=== PATIENT | female | born 1965 | race Caucasian/White ===

== ENCOUNTER → 2019-04-28 14:29 | Outpatient (BNVA) | payer MEDICARE, MEDICAID, SELFPAY | PROVIDERS: Family Provider Internal Medicine; PCP Internal Medicine; Referring Provider Internal Medicine; Visit Provider Orthopaedic Surgery | DX: M25.551 Pain in right hip (principal); R10.2 Pelvic and perineal pain | CPT/HCPCS: 73501 ==

== ENCOUNTER 2019-05-13 13:05 | Outpatient (CLI) | payer MEDICARE, MEDICAID, SELFPAY ==
--- NOTE | 2019-05-13 13:00 | MR_ITS ---
WS: [id number] MRI LUMBAR SPINE NONCONTRAST TECHNIQUE: Sagittal T1, T2 and STIR imaging. Axial T1 and T2 imaging. CLINICAL INFORMATION: pain COMPARISON: MRI 2008 and myelogram FINDINGS: Mild lumbar curve. No acute compression. No high-grade central canal stenosis. Small disc protrusions in the lower thoracic spine at T11-T12 and T12-L1 without significant central canal stenosis. L1-L2: Normal. L2-L3: Mild annular bulging. Small left foraminal protrusion with mild left foraminal narrowing. Righ t foramen is patent. Mild facet arthropathy. L3-L4: Mild annular bulging with slight effacement of ventral thecal sac. Left foraminal protrusion c ontacts the exiting left L3 nerve root with moderate left foraminal narrowing. Right foramen is paten t. Mild to moderate facet arthropathy. L4-L5: Prominent central and right pericentral disc protrusion with moderate central canal stenosis. Impingement traversing right L5 nerve root. Mild to moderate right greater than left foraminal narrow ing. Moderate facet arthropathy with facet edema. L5-S1: L5 is partially sacralized. No significant disc bulging. Spinal canal and foramen are patent. Mild facet arthropathy. Small amount of edema in the bilateral L4-5 facets and pedicles consistent with stress reaction or de generative change. Prior postoperative changes anterior cervical fusion C5-C7. MR/MR lumbar spine wo con* [id number] IMPRESSION: 1. Prominent central right pericentral disc protrusion L4-5 impinges the right subarticular recess and traversing right L5 nerve root. Moderate central canal stenosis with mild to moderate right greater than left foraminal narrowing. 2. Small left foraminal protrusion L3-4 with moderate left foraminal narrowing and encroachment on the exiting left L3 nerve root. 3. Small left foraminal protrusion L2-3 with mild left foraminal narrowing.
== END 2019-05-13 13:06 | disposition home or self-care (01) ==
LOC: RADSHAW 13:10
PROVIDERS: Family Provider Internal Medicine; PCP Internal Medicine; Visit Provider Orthopaedic Surgery
DX: M51.26 Other intervertebral disc displacement, lumbar region (principal)
CPT/HCPCS: 72148

== ENCOUNTER 2019-07-09 10:34 | Emergency (ER) | payer MEDICARE, MEDICAID, SELFPAY ==
[2019-07-09] VITALS (8 sets, daily range): BP systolic 119–134; BP diastolic 70–93; PULSE 71–82; RESP 16–18; TEMP 36.7; O2SAT 97–100; BMI 35.3
--- NOTE | 2019-07-09 10:46 | W.ED.CHESTPA ---
HPI - Chest Pain General: Chief Complaint: Chest Pain Stated Complaint: chest pain Time Seen by Provider: 07/09/19 10:41 History of Present Illness: HPI narrative: 54-year-old female present complaining of a positional chest pain is worse when she moves worse when she takes a deep breath and worse with palpation. She has been coughing quite a bit she was recently diagnosed with pneumonia and influenza per her report. She has a history of COPD and CHF. She states she is not really had much more than a low-grade fever she not had any vomiting or diarrhea chest pain is been very severe for the last 3 days. She is not had any hematochezia melena hematemesis or coffee-ground emesis. She tested positive for influenza A couple weeks ago when this first started when she was in [place]. Associated symptoms: Deny abdominal pain, dyspnea, fever(s), nausea or vomiting Review of Systems Const: Denies: fever, chills, body aches, change in appetite, fatigue or malaise ENMT: Denies: throat pain, ear pain, nasal discharge or nasal congestion Card: Denies: chest pain, edema, shortness of breath on exertion or shortness of breath when lying down Resp: Denies: shortness of breath, productive cough or non-productive cough GI: Denies: abdominal pain, nausea, vomiting, vomiting blood, coffee grounds in vomit, diarrhea, constipation, bloating, blood in stool or black tarry stool : Denies: flank pain, difficulty urinating, painful urination, urinary frequency or urinary urgency Skin/Breast: Denies: rash or itching [facility] ED PFSH: Medical History (Updated 07/09/19 @ 14:39 by Gee Huertas DO) Bilateral primary osteoarthritis of hip Surgical History H/O cervical spine surgery Social History Smoking and tobacco status: current every day smoker cigarettes Packs smoked per day: 0.5 Alcohol intake: never Physical Exam Const: COMMON NORMALS: no apparent distress GENERAL APPEARANCE: cooperative and comfortable ORIENTATION/CONSCIOUSNESS: Yes awake, Yes oriented to person, Yes oriented to place and Yes oriented to time HENMT: COMMON NORMALS: normocephalic, head/scalp atraumatic, hearing grossly normal bilaterally, external ears normal, EAC's normal, TM's normal bilaterally, nasal mucous membranes and turbinates normal, moist oral mucous membranes and oropharynx normal HEAD & SCALP: normocephalic and atraumatic NOSE: nasal mucous membranes and turbinates normal EXTERNAL EAR: Yes external ears normal EXTERNAL AUDITORY CANAL: EAC's normal TYMPANIC MEMBRANE: TM's normal bilaterally Eye: COMMON NORMALS: PERRL, EOMs intact bilaterally, conjunctivae normal and no scleral icterus CONJUNCTIVA: Yes conjunctivae normal PUPIL: Yes PERRL Neck/C-Spine: COMMON NORMALS: full ROM, no lymphadenopathy, supple and no JVD Lymph: LYMPHATIC: no lymphadenopathy noted and no lymphedema noted Chest: OTHER: Pain reproducible with palpation across anterior chest wall and with movement and deep inspiration Resp: COMMON NORMALS: normal respiratory effort, no retractions, no use of accessory muscles and clear to auscultation bilaterally AUSCULTATION: clear to auscultation bilaterally Cardio: COMMON NORMALS: no JVD, regular rate, regular rhythm and no murmurs RATE: regular rate RHYTHM: regular rhythm GI: COMMON NORMALS: soft to palpation and no hepatosplenomegaly AUSCULTATION: Yes normoactive bowel sounds PALPATION: Yes soft, No tender, No guarding and Yes no hepatosplenomegaly Extremity: COMMON NORMALS: normal to inspection, normal capillary refill, no clubbing, cyanosis or edema, no calf tenderness and no pedal edema Neuro: SENSORIUM/ORIENTATION: Yes oriented to person, Yes oriented to place and Yes oriented to time Skin: COMMON NORMALS: no rashes or lesions noted GENERAL SKIN EXAM: no rashes or lesions noted Course Vital Signs: Vital signs: Vital Signs Temperature 98.1 F 07/09/19 10:29 Pulse Rate 71 07/09/19 15:28 Respiratory Rate 17 07/09/19 15:28 Blood Pressure 127/70 07/09/19 15:28 Pulse Oximetry 97 07/09/19 15:28 MDM - Chest Pain MDM Narrative: Medical decision making narrative: Troponins are negative x2 EKG is unremarkable pain continues to be reproducible with palpation movement and deep inspiration reviewed findings with the patient Lab Data: Labs: Lab Results 07/09/19 07/09/19 07/09/19 Range/Units 11:27 11:27 11:27 WBC 5.4 (4.0-10.0) 10^3/ uL RBC 3.81 L (4.1-5.3) 10^6/u L Hgb 10.4 L (11.5-15.3) g/dL Hct 33.1 L (37.0-47.0) % MCV 86.9 (81-99) fL MCH 27.3 L (28.0-34.0) pg MCHC 31.4 (30.0-36.0) g/dL RDW 13.8 (12.1-15.1) % Plt Count 101 L (130-400) 10^3/c mm MPV 9.6 (7.4-10.4) fL Neut % (Auto) 73.3 % Lymph % (Auto) 18.2 % [place] % (Auto) 5.1 % Eos % (Auto) 2.6 % Baso % (Auto) 0.4 % Neut # (Auto) 4.0 (1.8-7.7) 10^3/u L Lymph # (Auto) 1.0 (0.8-4.8) 10^3/u L [place] # (Auto) 0.3 (0.2-0.9) 10^3/u L Eos # (Auto) 0.1 (0.0-0.8) 10^3/u L Baso # (Auto) 0.0 (0.0-0.1) 10^3/u L Nucleated RBC % (a uto) 0 % Nucleated RBCs # 0.0 /100WBC Sodium 141 (136-145) mmol/L Potassium 3.7 (3.5-5.1) mmol/L Chloride 109 H (98-107) mmol/L Carbon Dioxide 22 (22-29) mmol/L Anion Gap 13.7 (5-19) BUN 10 (6-20) mg/dL Creatinine 0.4 L (0.5-0.9) mg/dL GFR Calculation 167.6 H (90-130) mL/min Glucose 237 H (65-115) mg/dL Calculated Osmolal ity 296 H (285-295) mOsm/k g Calcium 9.2 (8.5-10.5) mg/dL Total Bilirubin 0.5 (0.15-1.2) mg/dL AST 26 (0-32) U/L ALT 22 (0-33) U/L Alkaline Phosphata se 164 H (35-105) IU/L Troponin T Baselin e 6 (0-10) ng/mL Troponin T 120 Min [place] (0-10) ng/mL Delta Troponin T (0-10) ABS# Total Protein 5.7 L (6.6-8.7) g/dL Albumin 3.3 L (3.5-5.2) g/dL Globulin 2.4 (1.3-4.6) g/dL Urine Color (Yellow) Urine Appearance (CLEAR) Urine pH (5-7) Ur Specific Gravit y (1.005-1.030) Urine Protein (Negative) Urine Glucose (UA) (Normal) Urine Ketones (Negative) Urine Blood (Negative) Urine Nitrate (Negative) Urine Bilirubin (NEGATIVE) Urine Urobilinogen (Negative) mg/dL Ur Leukocyte Colleen ase (Negative) 07/09/19 07/09/19 Range/Units 11:50 13:27 WBC (4.0-10.0) 10^3/ uL RBC (4.1-5.3) 10^6/u L Hgb (11.5-15.3) g/dL Hct (37.0-47.0) % MCV (81-99) fL MCH (28.0-34.0) pg MCHC (30.0-36.0) g/dL RDW (12.1-15.1) % Plt Count (130-400) 10^3/c mm MPV (7.4-10.4) fL Neut % (Auto) % Lymph % (Auto) % [place] % (Auto) % Eos % (Auto) % Baso % (Auto) % Neut # (Auto) (1.8-7.7) 10^3/u L Lymph # (Auto) (0.8-4.8) 10^3/u L [place] # (Auto) (0.2-0.9) 10^3/u L Eos # (Auto) (0.0-0.8) 10^3/u L Baso # (Auto) (0.0-0.1) 10^3/u L Nucleated RBC % (a uto) % Nucleated RBCs # /100WBC Sodium (136-145) mmol/L Potassium (3.5-5.1) mmol/L Chloride (98-107) mmol/L Carbon Dioxide (22-29) mmol/L Anion Gap (5-19) BUN (6-20) mg/dL Creatinine (0.5-0.9) mg/dL GFR Calculation (90-130) mL/min Glucose (65-115) mg/dL Calculated Osmolal ity (285-295) mOsm/k g Calcium (8.5-10.5) mg/dL Total Bilirubin (0.15-1.2) mg/dL AST (0-32) U/L ALT (0-33) U/L Alkaline Phosphata se (35-105) IU/L Troponin T Baselin e (0-10) ng/mL Troponin T 120 Min [place] 6.00 (0-10) ng/mL Delta Troponin T 0 (0-10) ABS# Total Protein (6.6-8.7) g/dL Albumin (3.5-5.2) g/dL Globulin (1.3-4.6) g/dL Urine Color Yellow (Yellow) Urine Appearance Clear (CLEAR) Urine pH 5 (5-7) Ur Specific Gravit y 1.025 (1.005-1.030) Urine Protein Neg (Negative) Urine Glucose (UA) 2+ (Normal) Urine Ketones Negative (Negative) Urine Blood Neg (Negative) Urine Nitrate Negative (Negative) Urine Bilirubin Neg (NEGATIVE) Urine Urobilinogen Norm (Negative) mg/dL Ur Leukocyte Colleen ase Negative (Negative) Discharge Plan Discharge Patient Disposition: Home, Self-Care Clinical Impression: Anterior chest wall pain Condition: Stable Prescriptions: New hydrocodone-acetaminophen 5-325 mg tablet 1 tab PO Q6H PRN (Reason: pain) Qty: 10 RF: 0 No Action zonisamide 100 mg capsule 100 mg PO TID RF: 0 escitalopram oxalate [Lexapro] 20 mg tablet 20 mg PO DAILY RF: 0 nitroglycerin [Nitrostat] 0.4 mg tablet, sublingual 0.4 mg SUBLINGUAL PRN PRN (Reason: Chest Pain) RF: 0 quetiapine 50 mg tablet 50 mg PO BEDTIME RF: 0 clonidine HCl 0.1 mg Tablet 0.1 mg PO BEDTIME RF: 0 ropinirole 2 mg tablet 2 mg PO BEDTIME RF: 0 ProAir HFA 90 mcg/actuation Hfa Aerosol Inhaler 2 puff INHALATION Q4H PRN (Reason: Shortness Of Breath) RF: 0 Humalog KwikPen Insulin 100 unit/mL Insulin Pen See Rx Instructions .ROUTE .COMPLEX RF: 0 Pristiq 100 mg Tablet Extended Release 24 Hr 100 mg PO DAILY RF: 0 Tresiba FlexTouch U-200 200 unit/mL (3 mL) Insulin Pen 60 unit SUBCUT BEDTIME RF: 0 Ativan 0.5 mg Tablet 0.5 mg PO TID PRN (Reason: Anxiety) RF: 0 Discharge Orders: Discharge Order (Routine); Ordered 07/09/19 Ordered By: Gee Huertas Referrals: Eber Garsia DO [Primary Care Provider] - Discharge Diet: Clear Liquid Discharge Activity: Increase activity as tolerated Discharge Date/Time: 07/09/19 15:29 Coding Level of Care Code ED Data Keyer for Rober Arellano
--- NOTE | 2019-07-09 10:58 | XR_ITS ---
WS: [id number] PORTABLE CHEST HISTORY: dyspnea/cough COMPARISON: 01/09/2019 Lungs are clear and well expanded. No pleural effusion or pneumothorax. Cardiac size: Normal. Mediastinum/Aorta: Normal mediastinum. Prior surgical repair cervical region. XR/XR chest 1V portable [id number] IMPRESSION: Unremarkable portable chest.
--- NOTE | 2019-07-09 10:59 | ECG_ITS ---
Measurements Intervals [place] Rate: 82 P: 59 ME: 155 QRS: 34 QRSD: 79 T: 30 QT: 374 QTc: 437 SINUS RHYTHM POSSIBLE LEFT ATRIAL ENLARGEMENT [-0.1mV P WAVE IN V1/V2] Compared to ECG 01/02/2019 17:16:01 No significant changes Electronically Signed On 07-09-2019 14:03:56 CDT by Donna Davis M.D. [id number] f
[2019-07-09] MEDS: sodium chloride 0.9% 1,000 ML 999 ML IV (11:25)
[2019-07-09 11:41] LABS: Basophils % 0.4 %; Eosinophils # 0.1 10^3/uL (0.0-0.8); Eosinophils % 2.6 %; Hematocrit 33.1 % (37.0-47.0); Hemoglobin 10.4 g/dL (11.5-15.3); Lymphocytes % 18.2 %; Mean Corpuscular HGB Conc 31.4 g/dL (30.0-36.0); Mean Corpuscular Hemoglobin 27.3 pg (28.0-34.0); Mean Corpuscular Volume 86.9 fL (81-99); Mean Platelet Volume 9.6 fL (7.4-10.4); Monocytes # 0.3 10^3/uL (0.2-0.9); Monocytes % 5.1 %; Neutrophils % 73.3 %; Nucleated Red Blood Cells % 0 %; Platelet Count 101 10^3/cmm (130-400); Red Blood Count 3.81 10^6/uL (4.1-5.3); Red Cell Distribution Width 13.8 % (12.1-15.1); White Blood Count 5.4 10^3/uL (4.0-10.0)
[2019-07-09 11:59] LABS: Alanine Aminotransferase 22 U/L (0-33); Albumin Level 3.3 g/dL (3.5-5.2); Alkaline Phosphatase 164 IU/L (35-105); Anion Gap 13.7 (5-19); Aspartate Amino Transferase 26 U/L (0-32); Blood Urea Nitrogen 10 mg/dL (6-20); Calcium 9.2 mg/dL (8.5-10.5); Carbon Dioxide 22 mmol/L (22-29); Chloride 109 mmol/L (98-107); Globulin 2.4 g/dL (1.3-4.6); Glomerular Filtration Rate 167.6 mL/min (90-130); Glucose 237 mg/dL (65-115); Osmolality Calculated 296 mOsm/kg (285-295); Potassium 3.7 mmol/L (3.5-5.1); Sodium 141 mmol/L (136-145); Total Bilirubin 0.5 mg/dL (0.15-1.2); Total Protein 5.7 g/dL (6.6-8.7)
[2019-07-09 12:00] LABS: Troponin(5th) Baseline 6 ng/mL (0-10)
[2019-07-09 12:10] LABS: Add Urine Microscopic? NO
[2019-07-09] MEDS: morphine 4 mg/mL SDV 1 mL IVP ×2 (12:19→14:11)
[2019-07-09 12:57] LABS: Bilirubin Urine Neg (NEGATIVE); Blood Urine Neg (Negative); Glucose Urine UA 2+ (Normal); Ketones Urine Negative (Negative); Leukocyte Esterase Urine Negative (Negative); Nitrate Urine Negative (Negative); Protein Urine Neg (Negative); Specific Gravity, Urine 1.025 (1.005-1.030); Urine Appearance Clear (CLEAR); Urine Color Yellow (Yellow); Urobilinogen Urine Norm (Negative); pH Urine 5 (5-7)
--- NOTE | 2019-07-09 12:59 | ECG_ITS ---
Measurements Intervals [place] Rate: 79 P: 51 [place]: 159 QRS: 59 QRSD: 81 T: 49 QT: 385 QTc: 443 SINUS RHYTHM SEPTAL MYOCARDIAL INFARCTION [40+ ms Q WAVE IN V1/V2], OF INDETERMINATE AGE Compared to ECG 07/09/2019 10:38:19 Myocardial infarct finding now present Electronically Signed On 07-09-2019 22:06:47 CDT by Donna Davis M.D. [id number] f
[2019-07-09 14:08] LABS: Troponin 5 2HR Delta 0 ABS# (0-10)
== END 2019-07-09 15:29 | disposition home or self-care (01) ==
PROVIDERS: Emergency Provider Family Medicine; Family Provider Internal Medicine; PCP Internal Medicine
DX: R07.89 Other chest pain (principal); F17.210 Nicotine dependence, cigarettes, uncomplicated
CPT/HCPCS: 12345; 36415; 71045; 80053; 81003; 84484; 85025; 93005; 96360; 96361; 96365; 96366; 96374; 96375; 96376; 99284; J2270; J7030

== ENCOUNTER → 2019-08-06 12:54 | Outpatient (BNVA) | payer MEDICARE, MEDICAID, SELFPAY | PROVIDERS: Family Provider Internal Medicine; PCP Internal Medicine; Visit Provider Specialist | DX: F45.0 Somatization disorder (principal); F60.3 Borderline personality disorder; M54.5 Low back pain; F17.210 Nicotine dependence, cigarettes, uncomplicated | CPT/HCPCS: 99215 ==

== ENCOUNTER 2019-08-18 09:21 | Emergency (ER) | payer MEDICARE, MEDICAID, SELFPAY ==
[2019-08-18 09:25] VITALS: BP 124/74; PULSE 106; RESP 16; TEMP 37.5; O2SAT 98; BMI 36.3
--- NOTE | 2019-08-18 09:42 | CT_ITS ---
WS: [id number] CT ABDOMEN AND PELVIS WITH CONTRAST HISTORY: Abdominal pain. Prior hysterectomy, appendectomy and cholecystectomy. TECHNIQUE: Imaging performed of the abdomen and pelvis with IV contrast. Single phase imaging of the abdomen. Coronal and sagittal reformats are submitted. All CT scans at [facility] use at least one of these dose optimization techniques: automated exposure control; mA and/or kV adjustment per patient size (includes targeted exams where dose is matched to clinical indication); or iterativ e reconstruction. IV CONTRAST: Omnipaque 300; 95 mL IV. Oral contrast: No DLP: 1374.54 mGy.cm COMPARISON: 01/09/2019 Lower thorax: Mild thickening of the distal airways but improved since 01/09/2019. Micronodule at the LEFT base measures 2 mm. No interval change. Heart is normal size. Small hiatal hernia. Liver/biliary system: Mild hepatic steatosis. 1.2 cm hepatic cyst in the RIGHT lobe. No increase in s ize. No bile duct dilatation. Gallbladder: Prior cholecystectomy. Pancreas: Normal. Spleen: Spleen is slightly enlarged at 14.6 cm in length. Spleen has slightly decreased in size since 01/09/2019 (16.1 cm). Adrenal glands: Normal. Right kidney: Normal. Left kidney: Normal. Aorta: Mild atherosclerosis. No aneurysm. Large varices are present in the LEFT abdomen closely associated with the LEFT psoas muscle. These di lated varices continued to progress since 01/09/2019. Large veins enter into the splenic vein. These h ave been previously described and probably related to portal hypertension. Lymphadenopathy: None. Free fluid: None. GI tract: Slight increased amount of fluid in the RIGHT colon. There is no obstructive pattern. No si gnificant diverticular disease. No wall thickening or mucosal abnormalities. Abdominal wall: Unremarkable abdominal wall. No hernia. Pelvis: Prior hysterectomy. Urinary bladder is negative. No adenopathy or fluid. Bones: Unremarkable. CT/CT abdomen pelvis w con* [id number] IMPRESSION: 1. No acute abdominal process identified. 2. Prior appendectomy, cholecystectomy and hysterectomy. 3. No large varices in the LEFT retroperitoneum emptying into the splenic vein . Probably related to portal hypertension. 4. Mild splenomegaly.
[2019-08-18 10:01] LABS: Basophils % 0.2 %; Eosinophils # 0.2 10^3/uL (0.0-0.8); Eosinophils % 2.4 %; Hematocrit 34.6 % (37.0-47.0); Hemoglobin 11.3 g/dL (11.5-15.3); Lymphocytes # 1.6 10^3/uL (0.8-4.8); Lymphocytes % 16.6 %; Mean Corpuscular HGB Conc 32.7 g/dL (30.0-36.0); Mean Corpuscular Hemoglobin 26.3 pg (28.0-34.0); Mean Corpuscular Volume 80.5 fL (81-99); Mean Platelet Volume 9.9 fL (7.4-10.4); Monocytes # 0.5 10^3/uL (0.2-0.9); Neutrophils % 75.5 %; Nucleated Red Blood Cells % 0 %; Platelet Count 144 10^3/cmm (130-400); Red Cell Distribution Width 13.8 % (12.1-15.1); White Blood Count 9.3 10^3/uL (4.0-10.0)
[2019-08-18 10:06] LABS: INR 1.12 (0.8-1.2)
[2019-08-18 10:10] LABS: Alanine Aminotransferase 22 U/L (0-33); Albumin Level 3.7 g/dL (3.5-5.2); Alkaline Phosphatase 168 IU/L (35-105); Anion Gap 17.7 (5-19); Aspartate Amino Transferase 34 U/L (0-32); Blood Urea Nitrogen 11 mg/dL (6-20); Calcium 8.6 mg/dL (8.5-10.5); Carbon Dioxide 22 mmol/L (22-29); Chloride 102 mmol/L (98-107); Globulin 3.1 g/dL (1.3-4.6); Glomerular Filtration Rate 129.6 mL/min (90-130); Glucose 135 mg/dL (65-115); Osmolality Calculated 284 mOsm/kg (285-295); Potassium 3.7 mmol/L (3.5-5.1); Sodium 138 mmol/L (136-145); Total Protein 6.8 g/dL (6.6-8.7)
[2019-08-18] MEDS: iohexol 300 mg/mL 100 mL Btl IV (10:22)
--- NOTE | 2019-08-18 10:22 | PC.NURSE ---
Bedside commode taken to room. Patient unable to provide stool sample at this time. She will activate call-light when able.
--- NOTE | 2019-08-18 11:19 | W.ED.NAVMDI ---
HPI - Nausea/Vomiting/Diarrhea General: Chief complaint: Nausea/Vomiting/Diarrhea Stated complaint: abd pain Time Seen by Provider: 08/18/19 09:29 History of Present Illness: HPI Narrative: 54-year-old female vomited twice this morning had some hematemesis she states about 2 cups total began last night she has a little abdominal pain poor she reports having a temp up to 101 at home. She also had diarrhea with blood in it. She had a CT of the abdomen scheduled last week which she is not able to do because he could not get a IV access. There is also some question of some kidney problems she has had a mild cough but is been nonproductive is been longstanding she has a history of nonalcoholic steatohepatitis. She has not had any previous documented esophageal varices that she is aware of. She tells me she gets yearly EGDs and colonoscopies because of a family history of colon cancer, but she thinks her last endoscopy was almost 2 years ago was done by Dr. perez [facility]. MD elicited complaint: vomiting and other (Elevated blood pressure not feeling well nothing specific) Onset (ago): day(s) Associated nausea: Yes Associated symtoms: Reports nausea; Denies bloating, chest pain, dysuria, fatigue or malaise Review of Systems Const: Denies: fever, chills, body aches, change in appetite, fatigue or malaise ENMT: Denies: throat pain, ear pain, nasal discharge or nasal congestion Card: Denies: chest pain, edema, shortness of breath on exertion or shortness of breath when lying down Resp: Denies: shortness of breath, productive cough or non-productive cough GI: Reports: nausea, vomiting, vomiting blood and blood in stool; Denies: abdominal pain, coffee grounds in vomit, diarrhea, constipation, bloating or black tarry stool : Denies: flank pain, difficulty urinating, painful urination, urinary frequency or urinary urgency Skin/Breast: Denies: rash or itching PFSH ED PFSH: Medical History (Updated 08/18/19 @ 16:30 by Gee Huertas DO) Bilateral primary osteoarthritis of hip Chronic back pain Congestive heart failure Diabetes mellitus MONTANO (nonalcoholic steatohepatitis) Surgical History (Updated 08/18/19 @ 11:59 by Gee Huertas DO) H/O cervical spine surgery H/O colonoscopy History of esophagogastroduodenoscopy Social History Smoking and tobacco status: current every day smoker cigarettes Packs smoked per day: 0.5 Alcohol intake: never Physical Exam Const: COMMON NORMALS: no apparent distress GENERAL APPEARANCE: cooperative and comfortable ORIENTATION/CONSCIOUSNESS: Yes awake, Yes oriented to person, Yes oriented to place and Yes oriented to time HENMT: COMMON NORMALS: normocephalic, head/scalp atraumatic, hearing grossly normal bilaterally, external ears normal, EAC's normal, TM's normal bilaterally, nasal mucous membranes and turbinates normal, moist oral mucous membranes and oropharynx normal HEAD & SCALP: normocephalic and atraumatic NOSE: nasal mucous membranes and turbinates normal EXTERNAL EAR: Yes external ears normal EXTERNAL AUDITORY CANAL: EAC's normal TYMPANIC MEMBRANE: TM's normal bilaterally Eye: COMMON NORMALS: PERRL, EOMs intact bilaterally, conjunctivae normal and no scleral icterus CONJUNCTIVA: Yes conjunctivae normal PUPIL: Yes PERRL Neck/C-Spine: COMMON NORMALS: full ROM, no lymphadenopathy, supple and no JVD Lymph: LYMPHATIC: no lymphadenopathy noted and no lymphedema noted Resp: COMMON NORMALS: normal respiratory effort, no retractions, no use of accessory muscles and clear to auscultation bilaterally AUSCULTATION: clear to auscultation bilaterally Cardio: COMMON NORMALS: no JVD, regular rate, regular rhythm and no murmurs RATE: regular rate RHYTHM: regular rhythm GI: COMMON NORMALS: soft to palpation and no hepatosplenomegaly AUSCULTATION: Yes normoactive bowel sounds PALPATION: Yes soft, No tender, No guarding and Yes no hepatosplenomegaly Extremity: COMMON NORMALS: normal to inspection, normal capillary refill, no clubbing, cyanosis or edema, no calf tenderness and no pedal edema Neuro: SENSORIUM/ORIENTATION: Yes oriented to person, Yes oriented to place and Yes oriented to time Skin: COMMON NORMALS: no rashes or lesions noted GENERAL SKIN EXAM: no rashes or lesions noted Course Vital Signs: Vital signs: Vital Signs Temperature 99.5 F 08/18/19 09:25 Pulse Rate 106 H 08/18/19 09:25 Respiratory Rate 16 08/18/19 13:19 Blood Pressure 124/74 08/18/19 09:25 Pulse Oximetry 98 08/18/19 09:25 MDM - Nausea/Vomiting/Diarrhea MDM Narrative: Medical decision making narrative: Initially patient told me she was getting yearly EGDs and had never been told she had esophageal varices a little concerned about the CT findings we called both to [facility] where she states she had been getting EGDs before as well as calling her primary care doctor's office no one could demonstrate documentation of previous EGDs. Due to this we will go ahead and transfer to [facility] so she can get an EGD. We will not able to do it here because if she does have bleeding esophageal varices that is a source of these bleeding we do not have anyone that could band the varices at the time of EGD. Lab Data: Labs: Lab Results 08/18/19 08/18/19 08/18/19 Range/Units 09:48 09:48 09:48 WBC 9.3 (4.0-10.0) 10^3/ uL RBC 4.30 (4.1-5.3) 10^6/u L Hgb 11.3 L (11.5-15.3) g/dL Hct 34.6 L (37.0-47.0) % MCV 80.5 L (81-99) fL MCH 26.3 L (28.0-34.0) pg MCHC 32.7 (30.0-36.0) g/dL RDW 13.8 (12.1-15.1) % Plt Count 144 (130-400) 10^3/c mm MPV 9.9 (7.4-10.4) fL Neut % (Auto) 75.5 % Lymph % (Auto) 16.6 % [place] % (Auto) 5.0 % Eos % (Auto) 2.4 % Baso % (Auto) 0.2 % Neut # (Auto) 7.0 (1.8-7.7) 10^3/u L Lymph # (Auto) 1.6 (0.8-4.8) 10^3/u L [place] # (Auto) 0.5 (0.2-0.9) 10^3/u L Eos # (Auto) 0.2 (0.0-0.8) 10^3/u L Baso # (Auto) 0.0 (0.0-0.1) 10^3/u L Nucleated RBC % (a uto) 0 % Nucleated RBCs # 0.0 /100WBC PT 14.80 H (10.5-13.3) SECO NDS INR 1.12 (0.8-1.2) APTT 31.0 (23.9-36.7) SECO NDS Sodium 138 (136-145) mmol/L Potassium 3.7 (3.5-5.1) mmol/L Chloride 102 (98-107) mmol/L Carbon Dioxide 22 (22-29) mmol/L Anion Gap 17.7 (5-19) BUN 11 (6-20) mg/dL Creatinine 0.5 (0.5-0.9) mg/dL GFR Calculation 129.6 (90-130) mL/min Glucose 135 H (65-115) mg/dL Calculated Osmolal ity 284 L (285-295) mOsm/k g Calcium 8.6 (8.5-10.5) mg/dL Total Bilirubin 1.0 (0.15-1.2) mg/dL AST 34 H (0-32) U/L ALT 22 (0-33) U/L Alkaline Phosphata se 168 H (35-105) IU/L Total Protein 6.8 (6.6-8.7) g/dL Albumin 3.7 (3.5-5.2) g/dL Globulin 3.1 (1.3-4.6) g/dL Discharge Plan Discharge Patient Disposition: Xfer Other Clinical Impression: Acute upper GI bleed, MONTANO (nonalcoholic steatohepatitis) Condition: Stable Referrals: Eber Garsia DO [Primary Care Provider] - Coding Level of Care Code ED [place] Caller for Chg Fwd Exam Comprehensive
[2019-08-18] MEDS: ondansetron 2 mg/ML SDV 2 mL 4 MG IVP (11:37)
[2019-08-18] MEDS: sodium chloride 0.9% 500 ML 999 ML IV (11:48)
[2019-08-18 13:19] VITALS: RESP 16
[2019-08-18] MEDS: morphine 4 mg/mL SDV 1 mL 2 MG IVP (13:19)
[2019-08-18] MEDS: octreotide 500 MCG in sodium chloride 0.9% (100 ml) 100 ML 10.1 MCG IV (13:19)
[2019-08-18] MEDS: metoclopramide 5 mg/mL SDV 2 mL 10 MG IVP (14:36)
[2019-08-18 16:54] VITALS: BP 145/75; PULSE 78; RESP 16; O2SAT 97
== END 2019-08-18 16:55 | disposition other institution (70) ==
PROVIDERS: Emergency Provider Family Medicine; PCP Internal Medicine
DX: K92.2 Gastrointestinal hemorrhage, unspecified (principal); K75.81 Nonalcoholic steatohepatitis (NASH); I50.9 Heart failure, unspecified; E11.9 Type 2 diabetes mellitus without complications; F17.210 Nicotine dependence, cigarettes, uncomplicated
CPT/HCPCS: 12345; 74177; 80053; 85025; 85610; 85730; 96365; 96366; 96375; 99282; 99285; J2270; J2354; J2405; J2765; J7040; Q9967

== ENCOUNTER 2019-09-16 19:47 | Emergency (ER) | payer MEDICARE, MEDICAID, SELFPAY ==
[2019-09-16 19:50] VITALS: BP 138/76; PULSE 115; RESP 18; TEMP 37.8; O2SAT 96; BMI 36.3
--- NOTE | 2019-09-16 20:00 | ED_ITS ---
HPI - Nausea/Vomiting/Diarrhea General: Chief complaint: Nausea/Vomiting/Diarrhea Stated complaint: N/V X1 WEEK Time Seen by Provider: 09/16/19 19:49 History of Present Illness: HPI Narrative: This patient is a 54-year-old female who presents today with vomiting blood. She reports that in her past she was bulimic and has problems with vomiting frequently. She has had some vomiting throughout this week and she has been under a great amount of stress. Her son committed suicide a week ago. Today the last 3 episodes of vomiting of had blood in them. About a month ago she was seen here and transferred to [facility] for upper GI bleeding. 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 Apparently 2 tears were repaired at the time and she was advised that if she ever had bleeding again with vomiting she should come to the ER. She has a history of nonalcoholic steatohepatitis but does not think she is ever been told that she had varices. She is very tearful and upset but she denies any other physical complaints at this time. She does have some pain under her sternum which she says is the same as when she had the Belkys- Valenzuela tears. MD elicited complaint: vomiting Pertinent past history: bulimia and other (Nuñez, Belkys-Valenzuela) Onset (ago): week(s) Description of vomiting: bloody Associated nausea: Yes Associated symtoms: Reports chest pain and nausea; Denies change in vision, fatigue, headache(s) or malaise Review of Systems General: Reports: 10 or more systems reviewed and unremarkable except in HPI and below Const: Denies: fever(s), chills, fatigue or malaise Eyes: Denies: change in vision ENMT: Denies: odynophagia Card: Reports: chest pain; Denies: swelling of feet/ankles Resp: Denies: dyspnea, productive cough or non-productive cough GI: Reports: nausea and vomiting; Denies: abdominal pain : Denies: flank pain or difficulty voiding Musc: Denies: neck pain or back pain Skin/Breast: Denies: rash Neuro: Denies: headache(s), numbness in extremities or weakness in extremities Psych: Reports: depression, loss of interest and other (Normal grief reaction to the of her son) Girma/Lymph: Denies: easy bruising or easy bleeding PFSH ED PFSH: Medical History Bilateral primary osteoarthritis of hip Chronic back pain Congestive heart failure Diabetes mellitus NUÑEZ (nonalcoholic steatohepatitis) Surgical History H/O cervical spine surgery H/O colonoscopy History of esophagogastroduodenoscopy Social History Smoking and tobacco status: current some day smoker cigarettes Packs smoked per day: 0.5 Alcohol intake: never Physical Exam Const: COMMON NORMALS: patient oriented x3, no limitations and alert GENE RAL APPEARANCE: cooperative HENMT: HEAD & SCALP: normal to inspection FACE & SINUS: normal facial exam Eye: GENERAL EYE: appearance normal, both eyes and all related structures Neck/C-Spine: COMMON NORMALS: supple, no meningeal signs and no JVD Chest: COMMONS NORMALS: normal inspection of the chest Resp: COMMON NORMALS: normal respiratory effort, No use of accessory muscles and clear to auscultation bilaterally AUSCULTATION: clear to auscultation bilaterally Cardio: COMMON NORMALS: no JVD, regular rate, regular rhythm and No murmurs present (Cardio) RATE: regular rate RHYTHM: regular rhythm GI: COMMON NORMALS: Normal to inspection, nondistended, normoactive bowel sounds present, Soft to palpation and non-tender INSPECTION: Yes normal to inspection AUSCULTATION: Yes normoactive bowel sounds PALPATION: Yes Soft to palpation Back/Pelvis: COMMON NORMALS: thoracic and lumbar spine normal to inspection Extremity: COMMON NORMALS: normal to inspection Neuro: COMMON NORMALS: patient oriented x3, moves all extremities, no focal motor deficits and no sensory deficits noted SENSORIUM/ORIENTATION: Yes alert MENINGEAL SIGNS: Yes no meningeal signs Psych: COMMON NORMALS: mental status grossly normal, cooperative and normal affect Skin: COMMON NORMALS: no rashes or lesions noted and turgor normal GENERAL SKIN EXAM: no rashes or lesions noted and turgor normal Course Vital Signs: Vital signs: Vital Signs Temperature 100.1 F H 09/16/19 19:50 Pulse Rate 115 H 09/16/19 19:50 Respiratory Rate 18 09/16/19 19:50 Blood Pressure 138/76 09/16/19 19:50 Pulse Oximetry 96 09/16/19 19:50 MDM - Nausea/Vomiting/Diarrhea MDM Narrative: Medical decision making narrative: Patient with a history of a Belkys-Valenzuela tear. She has NUÑEZ but no history of esophageal varices. She is distraught over the of her son. She has had some vomiting and small amounts of blood. She did not have any vomiting while in the ED. She tolerated p.o. Blood counts are stable. She had a low-grade temp on arrival but on recheck several hours later, without treatment, the temperature was normal. Labs are normal. We also get a CT of her chest abdomen and pelvis which was unremarkable. I think she safe to go home. She understands return precautions. We discussed grief counseling. She complained of a severe headache which she called a migraine and said that Dilaudid helps her migraine. I did give her 1 dose and discharged her home. Lab Data: Labs: Lab Results 09/16/19 09/16/19 09/16/19 Range/Units 20:03 20:03 20:03 WBC 7.6 (4.0-10.0) 10^3/ uL RBC 4.08 L (4.1-5.3) 10^6/u L Hgb 10.1 L (11.5-15.3) g/dL Hct 31.9 L (37.0-47.0) % MCV 78.2 L (81-99) fL MCH 24.8 L (28.0-34.0) pg MCHC 31.7 (30.0-36.0) g/dL RDW 13.6 (12.1-15.1) % Plt Count 151 (130-400) 10^3/c mm MPV 10.0 (7.4-10.4) fL Neut % (Auto) 66.3 % Lymph % (Auto) 22.9 % Meriwether % (Auto) 8.1 % Eos % (Auto) 2.0 % Baso % (Auto) 0.3 % Neut # (Auto) 5.0 (1.8-7.7) 10^3/u L Lymph # (Auto) 1.7 (0.8-4.8) 10^3/u L Meriwether # (Auto) 0.6 (0.2-0.9) 10^3/u L Eos # (Auto) 0.2 (0.0-0.8) 10^3/u L Baso # (Auto) 0.0 (0.0-0.1) 10^3/u L Nucleated RBC % (a uto) 0 % Nucleated RBCs # 0.0 /100WBC Sodium 138 (136-145) mmol/L Potassium 3.4 L (3.5-5.1) mmol/L Chloride 104 (98-107) mmol/L Carbon Dioxide 24 (22-29) mmol/L Anion Gap 13.4 (5-19) BUN 11 (6-20) mg/dL Creatinine 0.5 (0.5-0.9) mg/dL GFR Calculation 129.6 (90-130) mL/min Glucose 195 H (65-115) mg/dL Calculated Osmolal ity 287 (285-295) mOsm/k g Lactate 1.1 (0.5-2.2) mmol/L Calcium 9.0 (8.5-10.5) mg/dL Total Bilirubin 0.4 (0.15-1.2) mg/dL AST 30 (0-32) U/L ALT 19 (0-33) U/L Alkaline Phosphata se 164 H (35-105) IU/L Total Protein 6.4 L (6.6-8.7) g/dL Albumin 3.8 (3.5-5.2) g/dL Globulin 2.6 (1.3-4.6) g/dL Lipase 91 H (13-60) U/L Blood Type Rho(D) Type Antibody Screen 09/16/19 Range/Units 20:03 WBC (4.0-10.0) 10^3/ uL RBC (4.1-5.3) 10^6/u L Hgb (11.5-15.3) g/dL Hct (37.0-47.0) % MCV (81-99) fL MCH (28.0-34.0) pg MCHC (30.0-36.0) g/dL RDW (12.1-15.1) % Plt Count (130-400) 10^3/c mm MPV (7.4-10.4) fL Neut % (Auto) % Lymph % (Auto) % Meriwether % (Auto) % Eos % (Auto) % Baso % (Auto) % Neut # (Auto) (1.8-7.7) 10^3/u L Lymph # (Auto) (0.8-4.8) 10^3/u L Meriwether # (Auto) (0.2-0.9) 10^3/u L Eos # (Auto) (0.0-0.8) 10^3/u L Baso # (Auto) (0.0-0.1) 10^3/u L Nucleated RBC % (a uto) % Nucleated RBCs # /100WBC Sodium (136-145) mmol/L Potassium (3.5-5.1) mmol/L Chloride (98-107) mmol/L Carbon Dioxide (22-29) mmol/L Anion Gap (5-19) BUN (6-20) mg/dL Creatinine (0.5-0.9) mg/dL GFR Calculation (90-130) mL/min Glucose (65-115) mg/dL Calculated Osmolal ity (285-295) mOsm/k g Lactate (0.5-2.2) mmol/L Calcium (8.5-10.5) mg/dL Total Bilirubin (0.15-1.2) mg/dL AST (0-32) U/L ALT (0-33) U/L Alkaline Phosphata se (35-105) IU/L Total Protein (6.6-8.7) g/dL Albumin (3.5-5.2) g/dL Globulin (1.3-4.6) g/dL Lipase (13-60) U/L Blood Type AB Positive Rho(D) Type Positive Antibody Screen Negative Discharge Plan Discharge Patient Disposition: Home, Self-Care Clinical Impression: Esophagitis with gastritis, Grief at loss of child Condition: Stable Prescriptions: No Action nitroglycerin [Nitrostat] 0.4 mg tablet, sublingual 0.4 mg SUBLINGUAL PRN PRN (Reason: Chest Pain) RF: 0 quetiapine 50 mg tablet 50 mg PO BEDTIME RF: 0 clonidine HCl 0.1 mg Tablet 0.1 mg PO BEDTIME RF: 0 ropinirole 2 mg tablet 2 mg PO BEDTIME RF: 0 insulin lispro [Humalog KwikPen Insulin] 100 unit/mL Insulin Pen See Rx Instructions .ROUTE .COMPLEX RF: 0 desvenlafaxine succinate [Pristiq] 100 mg Tablet Extended Release 24 Hr 100 mg PO DAILY RF: 0 Tresiba FlexTouch U-200 200 unit/mL (3 mL) Insulin Pen 60 unit SUBCUT BEDTIME RF: 0 lorazepam [Ativan] 0.5 mg Tablet 0.5 mg PO TID PRN (Reason: Anxiety) RF: 0 Zofran 8 mg Tablet 8 mg PO Q12H PRN (Reason: NAUSEA/VOMITING) RF: 0 Discharge Orders: Discharge Order (Routine); Ordered 09/16/19 Ordered By: Juliette Isidro Referrals: Eber Garsia DO [Primary Care Provider] - Discharge Diet: Clear Liquid Discharge Activity: Resume usual activity Patient Instructions: Gastritis (ED) Activity Restrictions/Additional Instructions: Return to the ED if continued episodes of vomiting with blood, or if fever, worse pain, trouble breathing or any other new or concerning symptoms. Follow up with your doctor or the walk in clinic at [facility] for further evaluation of your vomiting, as well as to seek counseling for your grieving. Coding Level of Care Code ED Drier Operator Helper for Rober Fwd Exam Comprehensive
[2019-09-16 20:12] LABS: Basophils % 0.3 %; Eosinophils # 0.2 10^3/uL (0.0-0.8); Hematocrit 31.9 % (37.0-47.0); Hemoglobin 10.1 g/dL (11.5-15.3); Lymphocytes # 1.7 10^3/uL (0.8-4.8); Lymphocytes % 22.9 %; Mean Corpuscular HGB Conc 31.7 g/dL (30.0-36.0); Mean Corpuscular Hemoglobin 24.8 pg (28.0-34.0); Mean Corpuscular Volume 78.2 fL (81-99); Monocytes # 0.6 10^3/uL (0.2-0.9); Monocytes % 8.1 %; Neutrophils % 66.3 %; Nucleated Red Blood Cells % 0 %; Platelet Count 151 10^3/cmm (130-400); Red Blood Count 4.08 10^6/uL (4.1-5.3); Red Cell Distribution Width 13.6 % (12.1-15.1); White Blood Count 7.6 10^3/uL (4.0-10.0)
[2019-09-16 20:27] LABS: Alanine Aminotransferase 19 U/L (0-33); Albumin Level 3.8 g/dL (3.5-5.2); Alkaline Phosphatase 164 IU/L (35-105); Anion Gap 13.4 (5-19); Aspartate Amino Transferase 30 U/L (0-32); Blood Urea Nitrogen 11 mg/dL (6-20); Carbon Dioxide 24 mmol/L (22-29); Chloride 104 mmol/L (98-107); Globulin 2.6 g/dL (1.3-4.6); Glomerular Filtration Rate 129.6 mL/min (90-130); Glucose 195 mg/dL (65-115); Lactate (Lactic Acid level) 1.1 mmol/L (0.5-2.2); Lipase 91 U/L (13-60); Osmolality Calculated 287 mOsm/kg (285-295); Potassium 3.4 mmol/L (3.5-5.1); Sodium 138 mmol/L (136-145); Total Bilirubin 0.4 mg/dL (0.15-1.2); Total Protein 6.4 g/dL (6.6-8.7)
[2019-09-16] MEDS: pantoprazole 40 mg SDV 80 MG IVP (20:31)
[2019-09-16] MEDS: ondansetron 2 mg/ML SDV 2 mL 4 MG IVP (20:32)
[2019-09-16] MEDS: LORazepam 2 mg/mL INJ 1 mL 1 MG IVP (20:33)
--- NOTE | 2019-09-16 20:54 | CTR_ITS ---
PROCEDURE INFORMATION: Exam: CT Chest With Contrast Exam date and time: 09/16/2019 9:16 PM Age: 54 years old Clinical indication: Abdominal pain; Generalized; Chest pain; Prior surgery; Surgery type: Gb, appy, hysto; Additional info: Chest and abdominal pain TECHNIQUE: Imaging protocol: Computed tomography of the chest with intravenous contrast. Radiation optimization: All CT scans at this facility use at least one of these dose optimization techniques: automated exposure control; mA and/or kV adjustment per patient size (includes targeted exams where dose is matched to clinical indication); or iterative reconstruction. Contrast material: OMNI 300; Contrast volume: 95 ml; Contrast route: IV; Other contrast: Oral, OMNI 300, 20; COMPARISON: No relevant prior studies available. RADIATION DOSE METRICS: Total DLP: 1992.71 mGy-cm FINDINGS: Lungs: Unremarkable. No consolidation. No masses. Pleural space: Unremarkable. No pneumothorax. No pleural effusion. Heart: Unremarkable. No cardiomegaly. No pericardial effusion. Aorta: Unremarkable. No aortic aneurysm. Lymph nodes: Unremarkable. No enlarged lymph nodes. Bones/joints: Unremarkable. No acute fracture. Soft tissues: Unremarkable. IMPRESSION: Negative for infiltrate or gross evidence of pulmonary embolus. PROCEDURE INFORMATION: Exam: CT Abdomen And Pelvis With Contrast Exam date and time: 09/16/2019 9:16 PM Age: 54 years old Clinical indication: Abdominal pain; Generalized; Chest pain; Prior surgery; Surgery type: Gb, appy, hysto; Additional info: Chest and abdominal pain TECHNIQUE: Imaging protocol: Computed tomography of the abdomen and pelvis with intravenous contrast. Radiation optimization: All CT scans at this facility use at least one of these dose optimization techniques: automated exposure control; mA and/or kV adjustment per patient size (includes targeted exams where dose is matched to clinical indication); or iterative reconstruction. Contrast material: OMNI 300; Contrast volume: 95 ml; Contrast route: IV; Other contrast: Oral, OMNI 300, 20; COMPARISON: No relevant prior studies available. RADIATION DOSE METRICS: Total DLP: 1992.71 mGy-cm FINDINGS: Liver: Caudal tip of the liver demonstrates a 9.8 mm cyst, no follow-up advised. Gallbladder and bile ducts: Cholecystectomy. Pancreas: Normal. No ductal dilation. Spleen: Normal. No splenomegaly. Adrenals: Normal. No mass. Kidneys and ureters: Normal. No hydronephrosis. Stomach and bowel: Constipation. Appendix: No evidence of appendicitis. Intraperitoneal space: Unremarkable. No free air. No significant fluid collection. Vasculature: Unremarkable. No abdominal aortic aneurysm. Lymph nodes: Unremarkable. No enlarged lymph nodes. Bladder: Unremarkable as visualized. Reproductive: Unremarkable as visualized. Bones/joints: Unremarkable. No acute fracture. Soft tissues: Unremarkable. CT/CT chest abd pel w con* IMPRESSION: 1. Negative for acute inflammatory process. 2. Cholecystectomy. 3. Constipation. 4. Caudal tip of the liver demonstrates a 9.8 mm cyst, no follow-up advised. Radiation Dose CTDIVOL = (mGy): DLP = 1992.71~1992.71 (mGy-cm)
[2019-09-16] MEDS: iohexol 300 mg/mL 50 mL Btl PO (21:22)
[2019-09-16] MEDS: sodium chloride 0.9% 1,000 ML 999 ML IV (21:28)
[2019-09-16] MEDS: iohexol 300 mg/mL 100 mL Btl IV (22:06)
[2019-09-16 23:12] VITALS: BP 134/81; PULSE 91; RESP 19; TEMP 37.1; O2SAT 96
[2019-09-16 23:16] VITALS: RESP 20
[2019-09-16] MEDS: HYDROmorphone 1 mg/mL INJ 1 mL IM (23:16)
[2019-09-16 23:28] LABS: Add Urine Microscopic? NO
[2019-09-16 23:32] LABS: Bilirubin Urine Neg (NEGATIVE); Blood Urine Neg (Negative); Glucose Urine UA Norm (Normal); Ketones Urine Negative (Negative); Leukocyte Esterase Urine Negative (Negative); Nitrate Urine Negative (Negative); Protein Urine Neg (Negative); Urine Appearance Clear (CLEAR); Urine Color Yellow (Yellow); Urobilinogen Urine 1 mg/dL (Negative); pH Urine 7 (5-7)
== END 2019-09-16 23:22 | disposition home or self-care (01) ==
PROVIDERS: Emergency Provider Emergency Medicine; PCP Internal Medicine
DX: K29.70 Gastritis, unspecified, without bleeding (principal); K20.9 Esophagitis, unspecified; F43.21 Adjustment disorder with depressed mood; Z79.4 Long term (current) use of insulin; I50.9 Heart failure, unspecified; E11.9 Type 2 diabetes mellitus without complications; F17.210 Nicotine dependence, cigarettes, uncomplicated
CPT/HCPCS: 12345; 36415; 71260; 74177; 80053; 81003; 83605; 83690; 85025; 86850; 86900; 96361; 96372; 96374; 96375; 99282; 99283; A9270; C9113; J1170; J2060; J2405; J7030; Q9967

== ENCOUNTER 2019-09-19 19:20 | Inpatient (IN) | payer MEDICARE, MEDICAID, SELFPAY ==
--- NOTE | 2019-09-19 19:23 | ECG_ITS ---
Measurements Intervals Stewart Rate: 106 P: 49 MN: 154 QRS: 21 QRSD: 80 T: 30 QT: 339 QTc: 450 SINUS TACHYCARDIA ABNORMAL RHYTHM ECG Compared to ECG 07/09/2019 12:55:11 Sinus rhythm no longer present Myocardial infarct finding no longer present Electronically Signed On 09-20-2019 15:00:39 CDT by Tom Ford M.D. [email or web address]
--- NOTE | 2019-09-19 19:24 | W.ED.PSYCH ---
HPI - Psych General: Chief Complaint: Psychiatric Symptoms Stated Complaint: SI Time Seen by Provider: 09/19/19 19:23 History of Present Illness: HPI Narrative: 54-year-old female presents with suicidal ideation. She lost her son to suicide a week and a half ago. She has been very depressed since. She has had previous history of depression with admission for suicidal ideation. She says that she is attempted suicide over 11 times in the past. She complains of chronic lumbar pain, and a headache that is been present since she has not been able to sleep because of her son's . She was seen recently for vomiting. A few weeks ago, she was sent to [facility] for some GI bleeding related to her vomiting, and was told she had a Belkys-Valenzuela tear. She has had some blood with her vomit on and off, the last episode was yesterday, in which she had a small amount of blood. MD complaint: suicidal ideation Onset (ago): day(s) Duration: constant History of same: Yes Relieving factors: none Exacerbating factors: other Associated psychiatric symptoms: depression and suicidal ideation Associated symptoms: Reports depression; Deny auditory hallucinations, visual hallucinations, delusions or homicidal ideation If self harm: admits thoughts of self harm Review of Systems Const: Reports: fever(s); Denies: chills Eyes: Denies: change in vision or blurry vision ENMT: Denies: dental pain, change in hearing, post nasal drip or sinus pain Card: Denies: chest pain, palpitations or irregular heart rhythm Resp: Denies: dyspnea, productive cough, non-productive cough or wheezing GI: Reports: nausea and vomiting; Denies: abdominal pain, hematochezia or melena : Denies: dysuria, urinary frequency, urinary urgency or hematuria Musc: Reports: back pain; Denies: neck pain, joint redness or joint warmth Skin/Breast: Denies: rash, pruritus or erythema Neuro: Reports: headache(s); Denies: dizziness, vertigo or confusion Psych: Reports: depression; Denies: visual hallucinations, auditory hallucinations or homicidal ideation [facility] ED PFSH: Medical History (Updated 09/19/19 @ 20:29 by Pablito Pitts DO) Bilateral primary osteoarthritis of hip Chronic back pain Congestive heart failure Diabetes mellitus MONTANO (nonalcoholic steatohepatitis) Surgical History H/O cervical spine surgery H/O colonoscopy History of esophagogastroduodenoscopy Social History Smoking and tobacco status: current every day smoker cigarettes Packs smoked per day: 0.5 Alcohol intake: never Physical Exam Const: GENERAL APPEARANCE: well developed ORIENTATION/CONSCIOUSNESS: Yes oriented to person, Yes oriented to place and Yes oriented to time HENMT: COMMON NORMALS: normocephalic, external ears normal and Normal external nose present HEAD & SCALP: normocephalic FACE & SINUS: normal facial exam NOSE: Normal external nose present and No nasal discharge present EXTERNAL EAR: Yes external ears normal MOUTH: tongue normal THROAT: posterior oropharynx normal; no peritonsillar mass Eye: COMMON NORMALS: Equal, round and reactive pupils present, EOMs intact bilaterally and conjunctivae normal EYELID: eyelids normal CONJUNCTIVA: Yes conjunctivae normal PUPIL: Yes Equal, round and reactive pupils present Neck/C-Spine: GENERAL: No tracheal deviation Chest: COMMONS NORMALS: normal inspection of the chest CHEST: No tenderness Resp: COMMON NORMALS: clear to auscultation bilaterally EFFORT & INSPECTION: No tachypneic, No respiratory distress, No retractions, No uses accessory muscles and No tracheal deviation AUSCULTATION: clear to auscultation bilaterally, no rhonchi, no wheezes and lung sounds not diminished Cardio: COMMON NORMALS: regular rate and regular rhythm RATE: regular rate RHYTHM: regular rhythm HEART SOUNDS: no murmurs PERIPHERAL PULSES: radial pulses present GI: INSPECTION: No abdominal distension AUSCULTATION: No Hyperactive bowel sounds present and No Hypoactive bowel sounds present PALPATION: No Guarding due to palpation present (GI) and No Rigid due to palpation PERCUSSION: no dullness to percussion and no tympanic to percussion Neuro: SENSORIUM/ORIENTATION: Yes oriented to person, Yes oriented to place and Yes oriented to time Psych: COMMON NORMALS: mental status grossly normal THOUGHT CONTENT: No delusions Skin: GENERAL SKIN EXAM: other (Patient appears to have some bruises to bilateral upper extremities, possible needle punctures as well.) MDM - Psych MDM Narrative: Medical decision making narrative: Hemoglobin is stable from prior. Otherwise she is medically stable as well. She is mildly hypokalemic. We will have her take some potassium here. She will be accepted to the [facility]. Lab Data: Labs: Lab Results 09/19/19 09/19/19 09/19/19 Range/Units 19:32 19:32 19:55 WBC 6.5 (4.0-10.0) 10^3/ uL RBC 4.07 L (4.1-5.3) 10^6/u L Hgb 10.1 L (11.5-15.3) g/dL Hct 32.2 L (37.0-47.0) % MCV 79.1 L (81-99) fL MCH 24.8 L (28.0-34.0) pg MCHC 31.4 (30.0-36.0) g/dL RDW 13.8 (12.1-15.1) % Plt Count 145 (130-400) 10^3/c mm MPV 9.7 (7.4-10.4) fL Neut % (Auto) 69.6 % Lymph % (Auto) 21.4 % Mcmullen % (Auto) 6.5 % Eos % (Auto) 1.8 % Baso % (Auto) 0.5 % Neut # (Auto) 4.5 (1.8-7.7) 10^3/u L Lymph # (Auto) 1.4 (0.8-4.8) 10^3/u L Mcmullen # (Auto) 0.4 (0.2-0.9) 10^3/u L Eos # (Auto) 0.1 (0.0-0.8) 10^3/u L Baso # (Auto) 0.0 (0.0-0.1) 10^3/u L Nucleated RBC % (a uto) 0 % Nucleated RBCs # 0.0 /100WBC Sodium 139 (136-145) mmol/L Potassium 3.3 L (3.5-5.1) mmol/L Chloride 104 (98-107) mmol/L Carbon Dioxide 21 L (22-29) mmol/L Anion Gap 17.3 (5-19) BUN 6 (6-20) mg/dL Creatinine 0.4 L (0.5-0.9) mg/dL GFR Calculation 167.6 H (90-130) mL/min Glucose 160 H (65-115) mg/dL Calculated Osmolal ity 287 (285-295) mOsm/k g Calcium 9.1 (8.5-10.5) mg/dL Total Bilirubin 0.7 (0.15-1.2) mg/dL AST 34 H (0-32) U/L ALT 22 (0-33) U/L Alkaline Phosphata se 173 H (35-105) IU/L Total Protein 6.3 L (6.6-8.7) g/dL Albumin 3.8 (3.5-5.2) g/dL Globulin 2.5 (1.3-4.6) g/dL Urine Color Yellow (Yellow) Urine Appearance Clear (CLEAR) Urine pH 5 (5-7) Ur Specific Gravit y 1.025 (1.005-1.030) Urine Protein Neg (Negative) Urine Glucose (UA) Norm (Normal) Urine Ketones Negative (Negative) Urine Blood Neg (Negative) Urine Nitrate Negative (Negative) Urine Bilirubin Neg (NEGATIVE) Urine Urobilinogen 4 H (Negative) mg/dL Ur Leukocyte Colleen ase Negative (Negative) Salicylates < 0.3 L (3-10) mg/dL Urine Opiates Scre en (Negative) ng/mL Acetaminophen < 5.0 L (10-30) ug/mL Ur Barbiturates Sc reen (Negative) ng/mL Ur Phencyclidine S crn (Negative) ng/mL Ur Amphetamines Sc reen (Negative) ng/mL U Benzodiazepines Scrn (Negative) ng/mL Urine Cocaine Scre en (Negative) ng/mL U Marijuana (THC) Screen (Negative) ng/mL Ethyl Alcohol 37 H (0-10) mg/dL 09/19/19 Range/Units 19:55 WBC (4.0-10.0) 10^3/ uL RBC (4.1-5.3) 10^6/u L Hgb (11.5-15.3) g/dL Hct (37.0-47.0) % MCV (81-99) fL MCH (28.0-34.0) pg MCHC (30.0-36.0) g/dL RDW (12.1-15.1) % Plt Count (130-400) 10^3/c mm MPV (7.4-10.4) fL Neut % (Auto) % Lymph % (Auto) % Mcmullen % (Auto) % Eos % (Auto) % Baso % (Auto) % Neut # (Auto) (1.8-7.7) 10^3/u L Lymph # (Auto) (0.8-4.8) 10^3/u L Mcmullen # (Auto) (0.2-0.9) 10^3/u L Eos # (Auto) (0.0-0.8) 10^3/u L Baso # (Auto) (0.0-0.1) 10^3/u L Nucleated RBC % (a uto) % Nucleated RBCs # /100WBC Sodium (136-145) mmol/L Potassium (3.5-5.1) mmol/L Chloride (98-107) mmol/L Carbon Dioxide (22-29) mmol/L Anion Gap (5-19) BUN (6-20) mg/dL Creatinine (0.5-0.9) mg/dL GFR Calculation (90-130) mL/min Glucose (65-115) mg/dL Calculated Osmolal ity (285-295) mOsm/k g Calcium (8.5-10.5) mg/dL Total Bilirubin (0.15-1.2) mg/dL AST (0-32) U/L ALT (0-33) U/L Alkaline Phosphata se (35-105) IU/L Total Protein (6.6-8.7) g/dL Albumin (3.5-5.2) g/dL Globulin (1.3-4.6) g/dL Urine Color (Yellow) Urine Appearance (CLEAR) Urine pH (5-7) Ur Specific Gravit y (1.005-1.030) Urine Protein (Negative) Urine Glucose (UA) (Normal) Urine Ketones (Negative) Urine Blood (Negative) Urine Nitrate (Negative) Urine Bilirubin (NEGATIVE) Urine Urobilinogen (Negative) mg/dL Ur Leukocyte Colleen ase (Negative) Salicylates (3-10) mg/dL Urine Opiates Scre en Positive H (Negative) ng/mL Acetaminophen (10-30) ug/mL Ur Barbiturates Sc reen Negative (Negative) ng/mL Ur Phencyclidine S crn Negative (Negative) ng/mL Ur Amphetamines Sc reen Negative (Negative) ng/mL U Benzodiazepines Scrn Negative (Negative) ng/mL Urine Cocaine Scre en Negative (Negative) ng/mL U Marijuana (THC) Screen Positive H (Negative) ng/mL Ethyl Alcohol (0-10) mg/dL Discharge Plan Discharge Patient Disposition: Admitted As Inpatient Admit Provider: Nathaniel Maxwell Clinical Impression: Suicidal ideation Condition: Stable Referrals: Eber Garsia DO [Primary Care Provider] - Discharge Date/Time: 09/19/19 21:58 Coding Level of Care Code ED Primer Waterproofing Machine Adjuster for Chg Fwd Exam Comprehensive
[2019-09-19 19:31] VITALS: BP 157/84; PULSE 112; RESP 20; TEMP 37.8; O2SAT 96; BMI 37.3
[2019-09-19 19:45] LABS: Basophils % 0.5 %; Eosinophils # 0.1 10^3/uL (0.0-0.8); Eosinophils % 1.8 %; Hematocrit 32.2 % (37.0-47.0); Hemoglobin 10.1 g/dL (11.5-15.3); Lymphocytes # 1.4 10^3/uL (0.8-4.8); Lymphocytes % 21.4 %; Mean Corpuscular HGB Conc 31.4 g/dL (30.0-36.0); Mean Corpuscular Hemoglobin 24.8 pg (28.0-34.0); Mean Corpuscular Volume 79.1 fL (81-99); Mean Platelet Volume 9.7 fL (7.4-10.4); Monocytes # 0.4 10^3/uL (0.2-0.9); Monocytes % 6.5 %; Neutrophils # 4.5 10^3/uL (1.8-7.7); Neutrophils % 69.6 %; Nucleated Red Blood Cells % 0 %; Platelet Count 145 10^3/cmm (130-400); Red Blood Count 4.07 10^6/uL (4.1-5.3); Red Cell Distribution Width 13.8 % (12.1-15.1); White Blood Count 6.5 10^3/uL (4.0-10.0)
[2019-09-19 19:58] LABS: Alanine Aminotransferase 22 U/L (0-33); Albumin Level 3.8 g/dL (3.5-5.2); Alcohol Level 37 mg/dL (0-10); Alkaline Phosphatase 173 IU/L (35-105); Anion Gap 17.3 (5-19); Aspartate Amino Transferase 34 U/L (0-32); Blood Urea Nitrogen 6 mg/dL (6-20); Calcium 9.1 mg/dL (8.5-10.5); Carbon Dioxide 21 mmol/L (22-29); Chloride 104 mmol/L (98-107); Globulin 2.5 g/dL (1.3-4.6); Glomerular Filtration Rate 167.6 mL/min (90-130); Glucose 160 mg/dL (65-115); Osmolality Calculated 287 mOsm/kg (285-295); Potassium 3.3 mmol/L (3.5-5.1); Sodium 139 mmol/L (136-145); Total Bilirubin 0.7 mg/dL (0.15-1.2); Total Protein 6.3 g/dL (6.6-8.7)
[2019-09-19 20:00] VITALS: RESP 20; O2SAT 99
[2019-09-19 20:00] LABS: Acetaminophen < 5.0 ug/mL (10-30); Salicylate < 0.3 mg/dL (3-10)
[2019-09-19] MEDS: oxyCODONE-APAP 10-325 mg Tablet 2 TAB PO (20:00)
[2019-09-19] MEDS: LORazepam 1 mg Tablet PO ×2 (20:01→20:45)
[2019-09-19 20:02] LABS: Add Urine Microscopic? NO
[2019-09-19] MEDS: nicotine 21 mg Patch 1 PATCH TRANSDERMA (20:02)
[2019-09-19 20:05] LABS: Bilirubin Urine Neg (NEGATIVE); Blood Urine Neg (Negative); Glucose Urine UA Norm (Normal); Ketones Urine Negative (Negative); Leukocyte Esterase Urine Negative (Negative); Nitrate Urine Negative (Negative); Protein Urine Neg (Negative); Specific Gravity, Urine 1.025 (1.005-1.030); Urine Appearance Clear (CLEAR); Urine Color Yellow (Yellow); Urobilinogen Urine 4 mg/dL (Negative); pH Urine 5 (5-7)
[2019-09-19 20:14] LABS: Amphetamines Screen Urine Negative (Negative); Barbiturates Screen Urine Negative (Negative); Benzodiazepines Screen Urine Negative (Negative); Cocaine Screen Urine Negative (Negative); Opiate Screen Urine Positive (Negative); PCP Screen Urine Negative (Negative); THC Screen Urine Positive (Negative)
--- NOTE | 2019-09-19 20:42 | PC.NURSE ---
During pt rounding, pt states she still has strong feeling of anxiety and does not feel the ativan is working. Dr notified. Orders obtained for additional dose
[2019-09-19 20:57] VITALS: BP 132/78; PULSE 106; RESP 22; O2SAT 97
[2019-09-19 21:48] VITALS: BP 126/80; PULSE 98; RESP 18; O2SAT 97
[2019-09-19 22:04] VITALS: BP 151/89; PULSE 108; RESP 22; TEMP 36.3; O2SAT 96
--- NOTE | 2019-09-19 23:52 | PC.NURSE ---
Called Dr. Maxwell for medication orders re patient's home meds. Dr. Maxwell also said the patient can use a walker.
[2019-09-20 00:25] LABS: Glucose Point of Care 189 mg/dL (70-110)
[2019-09-20] MEDS: quetiapine 25 mg Tablet 50 MG PO (00:31)
[2019-09-20] MEDS: trazodone 50 mg Tablet PO (00:31)
[2019-09-20] MEDS: ropinirole 2 mg Tablet PO ×2 (00:32→22:18)
[2019-09-20] MEDS: hyDROXYzine 25 mg Capsule 50 MG PO ×2 (02:23→09:24)
[2019-09-20] MEDS: nicotine 2 mg Gum BUCCAL (05:44)
[2019-09-20 06:00] VITALS: BP 104/66; PULSE 97; RESP 20; TEMP 36.6; O2SAT 99
[2019-09-20 06:50] LABS: Glucose Point of Care 184 mg/dL (70-110)
[2019-09-20] MEDS: nicotine 21 mg Patch 1 PATCH TRANSDERMA (08:21)
--- NOTE | 2019-09-20 09:25 | PC.NURSE ---
PRN VISTARIL Patient requested medication for anxiety. Will continue to monitor.
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
[2019-09-20 11:35] LABS: Glucose Point of Care 202 mg/dL (70-110)
[2019-09-20 14:00] VITALS: BP 108/78; PULSE 74; RESP 18; TEMP 36.6; O2SAT 98
[2019-09-20] MEDS: LORazepam 1 mg Tablet PO ×2 (15:38→22:20)
[2019-09-20 16:42] LABS: Glucose Point of Care 174 mg/dL (70-110)
[2019-09-20 20:16] LABS: Glucose Point of Care 169 mg/dL (70-110)
[2019-09-20 22:00] VITALS: BP 119/76; PULSE 74; RESP 18; TEMP 37.1; O2SAT 97
[2019-09-20] MEDS: HYDROcodone-acetaminophen 7.5-325 mg Tablet 1 TAB PO (22:18)
[2019-09-20 22:20] VITALS: BP 119/76
[2019-09-20] MEDS: cloNIDine 0.1 mg Tablet PO (22:20)
[2019-09-20] MEDS: quetiapine 100 mg Tablet PO (22:21)
--- NOTE | 2019-09-20 23:55 | PC.NURSE ---
trazodone 50 mg given for sleep
[2019-09-21 06:00] VITALS: BP 116/83; PULSE 106; RESP 20; TEMP 36.6; O2SAT 99
[2019-09-21] MEDS: nicotine 21 mg Patch 1 PATCH TRANSDERMA (06:34)
[2019-09-21 07:03] LABS: Glucose Point of Care 285 mg/dL (70-110)
[2019-09-21] MEDS: LORazepam 1 mg Tablet PO ×3 (08:26→20:46)
[2019-09-21 11:24] LABS: Glucose Point of Care 126 mg/dL (70-110)
[2019-09-21 14:00] VITALS: BP 105/61; PULSE 91; RESP 20; TEMP 36.7; O2SAT 97
--- NOTE | 2019-09-21 16:00 | PM.NPN ---
Subjective NPU Subjective: Interval history: The patient reports significant dysphoria and pain. She is able to walk with a walker. She complains of significant sleep difficulties. She has terrible nightmares which have never been treated, including with prazosin titration. She also complains of insomnia and sad doxepin was helpful with this. I will start with minimal intervention in light of the fact that she is alleged to be quite medication seeking. She is grieving over her son who killed himself in some sort of suicide pact with his girlfriend, who also committed suicide. She is grief stricken and it is difficult to tease apart legitimate grief versus other psychiatric disorders just now Medications: Reviewed: Yes Medication Review Details: Current Medications Acetaminophen (Tylenol) 650 mg PO Q4H PRN PRN Reason: MILD PAIN Hydrocodone Bitart/Acetaminophen ([place] 7.5-325 Mg) 1 tab PO BEDTIME JENS Stop: 09/22/19 23:00 Last Admin: 09/20/19 22:18 Dose: 1 tab Documented by: Benztropine Mesylate (Cogentin) 1 mg PO BID PRN PRN Reason: Mild Extrapyramidal symptoms Camphor/Menthol/Phenol (Blistex) 1 applic TOPICAL Q1H PRN PRN Reason: DRYNESS Clonidine HCl (Catapres) 0.1 mg PO BEDTIME JENS Last Admin: 09/20/19 22:20 Dose: 0.1 mg Documented by: Dextrose (D50w) 25 ml IVP ONCE PRN; Protocol PRN Reason: hypoglycemia protocol Dextrose (D50w) 50 ml IVP PRN PRN; Protocol PRN Reason: hypoglycemia protocol Diphenhydramine HCl (Benadryl) 50 mg IM ONCE PRN PRN Reason: Severe Extrapyramidal Symptoms Diphenhydramine HCl (Benadryl) 50 mg IM Q4H PRN PRN Reason: Severe Aggression Doxepin HCl (Sinequan) 50 mg PO BEDTIME JENS Glucagon (Glucagen) 1 mg IM ONCE PRN; Protocol PRN Reason: Adult Acute Hypoglycemia Prot. Haloperidol (Haldol) 5 mg PO Q4H PRN PRN Reason: AGITATION Haloperidol Lactate (Haldol Inj) 5 mg IM Q4H PRN PRN Reason: Severe Aggression Hydroxyzine Pamoate (Vistaril) 50 mg PO Q6H PRN PRN Reason: ANXIETY Last Admin: 09/20/19 09:24 Dose: 50 mg Documented by: Dextrose (D5w) 500 mls @ 100 mls/hr IV ONCE PRN; Protocol PRN Reason: Adult Acute Hypoglycemia Prot Insulin Aspart (Novolog) 0 unit SUBCUT WM&BEDTIME JENS; Protocol Last Admin: 09/21/19 11:31 Dose: Not Given Documented by: Loperamide HCl (Imodium Capsule) 2 mg PO Q6H PRN PRN Reason: DIARRHEA Lorazepam (Ativan) 2 mg IM Q4H PRN PRN Reason: Severe Aggression Lorazepam (Ativan) 1 mg PO TID JENS Last Admin: 09/21/19 15:21 Dose: 1 mg Documented by: Nicotine (Nicoderm 21 Mg Patch) 1 patch TRANSDERMA DAILY PRN PRN Reason: NICOTINE WITHDRAWAL Last Admin: 09/21/19 06:34 Dose: 1 patch Documented by: Nicotine Polacrilex (Nicorette) 2 mg BUCCAL Q2H PRN PRN Reason: NICOTINE WITHDRAWAL Last Admin: 09/20/19 05:44 Dose: 2 mg Documented by: Nitroglycerin (Nitrostat) 0.4 mg SUBLINGUAL PRN PRN PRN Reason: Chest Pain Non-Formulary Medication (Insulin Degludec [Tresiba Flextouch U-200]) 60 unit SUBCUT BEDTIME JENS Last Admin: 09/21/19 00:00 Dose: Not Given Documented by: Olanzapine (Zyprexa Zydis) 5 mg PO Q4H PRN PRN Reason: Agitation/Psychosis Ondansetron HCl (Zofran) 4 mg PO Q6H PRN PRN Reason: NAUSEA AND VOMITING Ondansetron HCl (Zofran) 8 mg PO Q12H PRN PRN Reason: NAUSEA/VOMITING Potassium Chloride (Klor-Con 10) 10 meq PO DAILY JENS Prazosin HCl (Minipress) 2 mg PO BEDTIME JENS Quetiapine Fumarate (Seroquel) 100 mg PO BEDTIME JENS Last Admin: 09/20/19 22:21 Dose: 100 mg Documented by: Ropinirole HCl (Requip) 2 mg PO BEDTIME JENS Last Admin: 09/20/19 22:18 Dose: 2 mg Documented by: Mental Status Exam MSE Comments: The patient is alert and interpersonally engaged female who presents at her stated age. She walks with some difficulty with a walker and appears to be in mild physical distress. Eye contact is good. Hygiene is fair; no gross neurological deficits, gait is with walker; AIMS=0. Speech is of normal rate and volume, without dysarthria, aprosody or pressure. Thought processes are integrated and free of any racing, blocking or looseness of association. Judgment is adequate for safety. There is no indication of guarding or paranoia. There is no attention to internal stimuli. Auditory and visual hallucinations are denied. Insight is limited. Problem solving skills are adequate for safety. The patient is oriented to person, place time and situation. No deficits noted in immediate, intermediate, or remote memory. Fund of knowledge is adequate. Affect is consistent with a depressed mood. Affective range appropriate. She reported passive suicidal ideation without intent or plan. Psychosis: perception unimpaired except through cognitive distortion; reality testing intact. Vitals/I&O/Wt Last Vital Signs Temp 98.0 F 09/21/19 14:00 Pulse 91 09/21/19 14:00 Resp 20 H 09/21/19 14:00 BP 105/61 09/21/19 14:00 Pulse Ox 97 09/21/19 14:00 Weight last 48 hrs Weight 198 lb 4 oz Weight 185 lb Data NPU : 09/19/19 19:32 09/19/19 19:32 A&P Assessment and plan (1) Major depression, recurrent: An extensive review of prior pharmacotherapy has not yielded any clues to what has potential for treating her depression. It might be that a return to venlafaxine, upon which she felt better for a while, could be efficacious Status: Acute (2) Grief at loss of child: Debriefing and supportive milieu or in order Status: Acute (3) Suicidal ideation: Patient has no specific plan or intent. She must be carefully monitored nonetheless. Status: Acute Involuntary Hold Information 96 Hour Hold: 96 Hour Involuntary Admission: No Attestations NPU Medical Necessity Statement*: The patient has many problems. I anticipate 5-7 midnights additional care. Time Spent in Patient Care: Greater than 35 minutes (>than 50% of time spent in counselling and/or direct pt care on unit). 60 minutes including record review, extensive review of prior pharmacotherapy with the patient, patient education regarding potential side effects of prednisone and doxepin. Coding Level of Care Code Acute Room Service Associate for [facility] Fwd Diagnoses Major depression, recurrent F33.9 Grief at loss of child F43.21; Z63.4 Suicidal ideation R45.850
[2019-09-21 16:53] LABS: Glucose Point of Care 185 mg/dL (70-110)
[2019-09-21 20:25] LABS: Glucose Point of Care 194 mg/dL (70-110)
[2019-09-21 20:45] VITALS: BP 105/61
[2019-09-21] MEDS: cloNIDine 0.1 mg Tablet PO (20:45)
[2019-09-21] MEDS: HYDROcodone-acetaminophen 7.5-325 mg Tablet 1 TAB PO (20:46)
[2019-09-21] MEDS: quetiapine 100 mg Tablet PO (20:46)
[2019-09-21] MEDS: doxepin 50 mg Capsule PO (20:47)
[2019-09-21] MEDS: ropinirole 2 mg Tablet PO (20:47)
[2019-09-21] MEDS: prazosin 1 mg Capsule 2 MG PO (20:47)
[2019-09-21 22:00] VITALS: BP 103/73; PULSE 105; RESP 16; TEMP 36.6; O2SAT 99
[2019-09-22] MEDS: acetaminophen 325 mg Tablet 650 MG PO ×2 (03:25→22:15)
[2019-09-22 06:00] VITALS: BP 119/68; PULSE 127; RESP 18; TEMP 36.8; O2SAT 99
[2019-09-22 07:00] LABS: Glucose Point of Care 242 mg/dL (70-110)
[2019-09-22] MEDS: LORazepam 1 mg Tablet PO ×3 (08:19→20:20)
[2019-09-22] MEDS: potassium chloride ER 10 mEq Tablet PO (08:19)
[2019-09-22 08:25] VITALS: BP 119/68; PULSE 127; RESP 18; TEMP 36.8; O2SAT 99
[2019-09-22 11:57] LABS: Glucose Point of Care 148 mg/dL (70-110)
[2019-09-22 14:00] VITALS: BP 122/73; PULSE 106; RESP 20; TEMP 36.9
[2019-09-22 16:31] LABS: Glucose Point of Care 188 mg/dL (70-110)
--- NOTE | 2019-09-22 18:20 | P.PN_ITS ---
Subjective NPU Subjective: Interval history: The patient enters the room, grimacing in pain. Her status is the same as it has been every day. She does say that Thorazine helped her with confusing thoughts. This was a long time ago and she does not remember what dose she was on. I pointed out to her that this is a VERY old psychotropic fraught with complications. She nonetheless is willing to try it. She is already on several antipsychotics and I will trim most of these away. Medications: Reviewed: Yes Medication Review Details: Current Medications Acetaminophen (Tylenol) 650 mg PO Q4H PRN PRN Reason: MILD PAIN Last Admin: 09/22/19 03:25 Dose: 650 mg Documented by: Hydrocodone Bitart/Acetaminophen ([place] 7.5-325 Mg) 1 tab PO BEDTIME JENS Stop: 09/22/19 23:00 Last Admin: 09/21/19 20:46 Dose: 1 tab Documented by: Benztropine Mesylate (Cogentin) 1 mg PO BID PRN PRN Reason: Mild Extrapyramidal symptoms Camphor/Menthol/Phenol (Blistex) 1 applic TOPICAL Q1H PRN PRN Reason: DRYNESS Chlorpromazine HCl (Thorazine) 50 mg PO BEDTIME JENS Clonidine HCl (Catapres) 0.1 mg PO BEDTIME JENS Last Admin: 09/21/19 20:45 Dose: 0.1 mg Documented by: Dextrose (D50w) 25 ml IVP ONCE PRN; Protocol PRN Reason: hypoglycemia protocol Dextrose (D50w) 50 ml IVP PRN PRN; Protocol PRN Reason: hypoglycemia protocol Diphenhydramine HCl (Benadryl) 50 mg IM ONCE PRN PRN Reason: Severe Extrapyramidal Symptoms Diphenhydramine HCl (Benadryl) 50 mg IM Q4H PRN PRN Reason: Severe Aggression Doxepin HCl (Sinequan) 50 mg PO BEDTIME JENS Last Admin: 09/21/19 20:47 Dose: 50 mg Documented by: Glucagon (Glucagen) 1 mg IM ONCE PRN; Protocol PRN Reason: Adult Acute Hypoglycemia Prot. Hydroxyzine Pamoate (Vistaril) 50 mg PO Q6H PRN PRN Reason: ANXIETY Last Admin: 09/20/19 09:24 Dose: 50 mg Documented by: Dextrose (D5w) 500 mls @ 100 mls/hr IV ONCE PRN; Protocol PRN Reason: Adult Acute Hypoglycemia Prot Insulin Aspart (Novolog) 0 unit SUBCUT WM&BEDTIME [facility]; Protocol Last Admin: 09/22/19 16:46 Dose: 6 unit Documented by: Loperamide HCl (Imodium Capsule) 2 mg PO Q6H PRN PRN Reason: DIARRHEA Lorazepam (Ativan) 2 mg IM Q4H PRN PRN Reason: Severe Aggression Lorazepam (Ativan) 1 mg PO TID [facility] Last Admin: 09/22/19 14:29 Dose: 1 mg Documented by: Nicotine (Nicoderm 21 Mg Patch) 1 patch TRANSDERMA DAILY PRN PRN Reason: NICOTINE WITHDRAWAL Last Admin: 09/21/19 06:34 Dose: 1 patch Documented by: Nicotine Polacrilex (Nicorette) 2 mg BUCCAL Q2H PRN PRN Reason: NICOTINE WITHDRAWAL Last Admin: 09/20/19 05:44 Dose: 2 mg Documented by: Nitroglycerin (Nitrostat) 0.4 mg SUBLINGUAL PRN PRN PRN Reason: Chest Pain Non-Formulary Medication (Insulin Degludec [Tresiba Flextouch U-200]) 60 unit SUBCUT BEDTIME [facility] Last Admin: 09/21/19 20:48 Dose: Not Given Documented by: Ondansetron HCl (Zofran) 4 mg PO Q6H PRN PRN Reason: NAUSEA AND VOMITING Ondansetron HCl (Zofran) 8 mg PO Q12H PRN PRN Reason: NAUSEA/VOMITING Potassium Chloride (Klor-Con 10) 10 meq PO DAILY [facility] Last Admin: 09/22/19 08:19 Dose: 10 meq Documented by: Prazosin HCl (Minipress) 2 mg PO BEDTIME [facility] Last Admin: 09/21/19 20:47 Dose: 2 mg Documented by: Ropinirole HCl (Requip) 2 mg PO BEDTIME [facility] Last Admin: 09/21/19 20:47 Dose: 2 mg Documented by: Mental Status Exam MSE Comments: The patient is alert and interpersonally engaged female who presents at her stated age. She walks with some difficulty with a walker and appears to be in mild physical distress. Eye contact is good. Hygiene is fair; no gross neurological deficits, gait is with walker; AIMS=0. Speech is of normal rate and volume, without dysarthria, aprosody or pressure. Thought processes are integrated and free of any racing, blocking or looseness of association. Judgment is adequate for safety. There is no indication of guarding or paranoia. There is no attention to internal stimuli. Auditory and visual hallucinations are denied. Insight is limited. Problem solving skills are adequate for safety. The patient is oriented to person, place time and situation. No deficits noted in immediate, intermediate, or remote memory. Fund of knowledge is adequate. Affect is consistent with a depressed mood. Affective range appropriate. Psychosis: perception unimpaired except through cognitive distortion; reality testing intact. Vitals/I&O/Wt Last Vital Signs Temp 98.4 F 09/22/19 14:00 Pulse 106 H 09/22/19 14:00 Resp 20 H 09/22/19 14:00 BP 122/73 09/22/19 14:00 Pulse Ox 99 09/22/19 08:25 Weight last 48 hrs Weight 198 lb 4 oz Data NPU : 09/19/19 19:32 09/19/19 19:32 A&P Assessment and plan (1) Major depression, recurrent: Status: Acute (2) Grief at loss of child: Status: Acute Involuntary Hold Information 96 Hour Hold: 96 Hour Involuntary Admission: No Attestations NPU Medical Necessity Statement*: This is a complex somatizing, grief stricken patient. I anticipate 5-7 midnights additional hospitalization. Time Spent in Patient Care: Greater than 35 minutes (>than 50% of time spent in counselling and/or direct pt care on unit) . Coding Level of Care Code Acute [employer] for Gaurav Ralphd Diagnoses Major depression, recurrent F33.9 Grief at loss of child F43.21; Z63.4
[2019-09-22 19:35] LABS: Glucose Point of Care 198 mg/dL (70-110)
[2019-09-22 20:19] VITALS: BP 122/73
[2019-09-22] MEDS: cloNIDine 0.1 mg Tablet PO (20:19)
[2019-09-22] MEDS: ropinirole 2 mg Tablet PO (20:20)
[2019-09-22] MEDS: chlorPROMazine 50 mg Tablet PO (20:20)
[2019-09-22] MEDS: doxepin 50 mg Capsule PO (20:20)
[2019-09-22] MEDS: prazosin 1 mg Capsule 2 MG PO (20:20)
[2019-09-22] MEDS: HYDROcodone-acetaminophen 7.5-325 mg Tablet 1 TAB PO (20:20)
[2019-09-22] MEDS: nicotine 2 mg Gum BUCCAL (20:39)
[2019-09-22 21:59] VITALS: BP 113/64; PULSE 90; RESP 17; TEMP 36.8; O2SAT 96
[2019-09-22] MEDS: hyDROXYzine 25 mg Capsule 50 MG PO (22:15)
[2019-09-23] MEDS: acetaminophen 325 mg Tablet 650 MG PO ×3 (02:20→20:13)
[2019-09-23] MEDS: nicotine 2 mg Gum BUCCAL ×4 (02:28→20:11)
[2019-09-23 06:00] VITALS: BP 111/63; PULSE 111; RESP 18; TEMP 36.6; O2SAT 98
[2019-09-23 06:57] LABS: Glucose Point of Care 232 mg/dL (70-110)
[2019-09-23] MEDS: LORazepam 1 mg Tablet PO ×3 (07:34→20:14)
[2019-09-23] MEDS: potassium chloride ER 10 mEq Tablet PO (07:34)
[2019-09-23 11:50] LABS: Glucose Point of Care 243 mg/dL (70-110)
[2019-09-23 12:37] VITALS: BP 117/70; PULSE 89; RESP 18; TEMP 37.1; O2SAT 100
--- NOTE | 2019-09-23 14:02 | P.PN_ITS ---
Subjective NPU Subjective: Interval history: The patient says that she now hurts on the other side of her body. I asked her how she was doing with grieving over her loss. She did cry for a minute but returned to medications and symptoms shortly thereafter. She is definitely psychosomatically focused. Medications: Reviewed: Yes Medication Review Details: Current Medications Acetaminophen (Tylenol) 650 mg PO Q4H PRN PRN Reason: MILD PAIN Last Admin: 09/23/19 13:29 Dose: 650 mg Documented by: Benztropine Mesylate (Cogentin) 1 mg PO BID PRN PRN Reason: Mild Extrapyramidal symptoms Camphor/Menthol/Phenol (Blistex) 1 applic TOPICAL Q1H PRN PRN Reason: DRYNESS Chlorpromazine HCl (Thorazine) 100 mg PO BEDTIME JENS Clonidine HCl (Catapres) 0.1 mg PO BEDTIME JENS Last Admin: 09/22/19 20:19 Dose: 0.1 mg Documented by: Dextrose (D50w) 25 ml IVP ONCE PRN; Protocol PRN Reason: hypoglycemia protocol Dextrose (D50w) 50 ml IVP PRN PRN; Protocol PRN Reason: hypoglycemia protocol Diphenhydramine HCl (Benadryl) 50 mg IM ONCE PRN PRN Reason: Severe Extrapyramidal Symptoms Diphenhydramine HCl (Benadryl) 50 mg IM Q4H PRN PRN Reason: Severe Aggression Doxepin HCl (Sinequan) 50 mg PO BEDTIME JENS Last Admin: 09/22/19 20:20 Dose: 50 mg Documented by: Glucagon (Glucagen) 1 mg IM ONCE PRN; Protocol PRN Reason: Adult Acute Hypoglycemia Prot. Hydroxyzine Pamoate (Vistaril) 50 mg PO Q6H PRN PRN Reason: ANXIETY Last Admin: 09/22/19 22:15 Dose: 50 mg Documented by: Dextrose (D5w) 500 mls @ 100 mls/hr IV ONCE PRN; Protocol PRN Reason: Adult Acute Hypoglycemia Prot Insulin Aspart (Novolog) 0 unit SUBCUT WM&BEDTIME [facility]; Protocol Last Admin: 09/23/19 11:42 Dose: 8 unit Documented by: Loperamide HCl (Imodium Capsule) 2 mg PO Q6H PRN PRN Reason: DIARRHEA Lorazepam (Ativan) 2 mg IM Q4H PRN PRN Reason: Severe Aggression Lorazepam (Ativan) 1 mg PO TID [facility] Last Admin: 09/23/19 13:29 Dose: 1 mg Documented by: Nicotine (Nicoderm 21 Mg Patch) 1 patch TRANSDERMA DAILY PRN PRN Reason: NICOTINE WITHDRAWAL Last Admin: 09/21/19 06:34 Dose: 1 patch Documented by: Nicotine Polacrilex (Nicorette) 2 mg BUCCAL Q2H PRN PRN Reason: NICOTINE WITHDRAWAL Last Admin: 09/23/19 09:11 Dose: 2 mg Documented by: Nitroglycerin (Nitrostat) 0.4 mg SUBLINGUAL PRN PRN PRN Reason: Chest Pain Non-Formulary Medication (Insulin Degludec [Tresiba Flextouch U-200]) 60 unit SUBCUT BEDTIME [facility] Last Admin: 09/22/19 22:24 Dose: Not Given Documented by: Ondansetron HCl (Zofran) 4 mg PO Q6H PRN PRN Reason: NAUSEA AND VOMITING Ondansetron HCl (Zofran) 8 mg PO Q12H PRN PRN Reason: NAUSEA/VOMITING Potassium Chloride (Klor-Con 10) 10 meq PO DAILY [facility] Last Admin: 09/23/19 07:34 Dose: 10 meq Documented by: Prazosin HCl (Minipress) 2 mg PO BEDTIME [facility] Last Admin: 09/22/19 20:20 Dose: 2 mg Documented by: Ropinirole HCl (Requip) 2 mg PO BEDTIME [facility] Last Admin: 09/22/19 20:20 Dose: 2 mg Documented by: Mental Status Exam MSE Comments: The patient is alert and interpersonally engaged female who presents at her stated age. She walks with some difficulty with a walker and appears to be in mild physical distress. Eye contact is good. Hygiene is fair; no gross neurological deficits, gait is with walker; AIMS=0. Speech is of normal rate and volume, without dysarthria, aprosody or pressure. Thought processes are integrated and free of any racing, blocking or looseness of association. Judgment is adequate for safety. There is no indication of guarding or paranoia. There is no attention to internal stimuli. Auditory and visual hallucinations are denied. Insight is limited. Problem solving skills are adequate for safety. The patient is oriented to person, place time and situation. No deficits noted in immediate, intermediate, or remote memory. Fund of knowledge is adequate. Mood is despondent and tearful when she thinks about her son. Affective range appropriate. Psychosis: perception unimpaired except through cognitive distortion; reality testing intact. Vitals/I&O/Wt Last Vital Signs Temp 98.7 F 09/23/19 12:37 Pulse 89 09/23/19 12:37 Resp 18 09/23/19 12:37 BP 117/70 09/23/19 12:37 Pulse Ox 100 09/23/19 12:37 Data NPU : 09/19/19 19:32 09/19/19 19:32 A&P Assessment and plan (1) Major depression, recurrent: The patient received supportive millieu and pharmacotherapy Status: Acute (2) Grief at loss of child: Supportive counseling. Status: Acute Involuntary Hold Information 96 Hour Hold: 96 Hour Involuntary Admission: No Attestations NPU Medical Necessity Statement*: This patient moves slowly, both emotionally and physically. I anticipate 7 to 10 midnights additional hospital stay. Time Spent in Patient Care: Greater than 35 minutes (>than 50% of time spe nt in counselling and/or direct pt care on unit) . Coding Level of Care Code Acute Cream Separator Operator for Rober Fwd Diagnoses Major depression, recurrent F33.9 Grief at loss of child F43.21; Z63.4
[2019-09-23 16:24] LABS: Glucose Point of Care 208 mg/dL (70-110)
[2019-09-23 19:45] LABS: Glucose Point of Care 231 mg/dL (70-110)
[2019-09-23] MEDS: doxepin 50 mg Capsule PO (20:11)
[2019-09-23] MEDS: chlorPROMazine 50 mg Tablet 100 MG PO (20:11)
[2019-09-23] MEDS: ropinirole 2 mg Tablet PO (20:11)
[2019-09-23] MEDS: prazosin 1 mg Capsule 2 MG PO (20:12)
[2019-09-23 20:14] VITALS: BP 106/73
[2019-09-23] MEDS: cloNIDine 0.1 mg Tablet PO (20:14)
[2019-09-23 20:38] VITALS: BP 106/73; PULSE 106; RESP 18; TEMP 36.9; O2SAT 99
[2019-09-24] MEDS: nicotine 2 mg Gum BUCCAL ×2 (03:38→19:44)
[2019-09-24 06:00] VITALS: BP 92/46; PULSE 105; RESP 16; TEMP 36.7; O2SAT 96
[2019-09-24 06:48] LABS: Glucose Point of Care 213 mg/dL (70-110)
[2019-09-24] MEDS: LORazepam 1 mg Tablet PO (08:27)
[2019-09-24] MEDS: potassium chloride ER 10 mEq Tablet PO (08:27)
[2019-09-24] MEDS: nicotine 21 mg Patch 1 PATCH TRANSDERMA (09:11)
--- NOTE | 2019-09-24 11:31 | P.PN_ITS ---
Subjective NPU Subjective: Interval history: Patient states that she is much better now that doxepin and prazosin have been initiated. She does not have nightmares about her son every night. She no longer blames herself for his . Her mood is better, even at doxepin 50 mg p.o. nightly. We discussed changes which I believe are definitely indicated. And she agrees to an increase of doxepin 100 mg and prazosin [address] Archibald will follow up on this. I warned her about potential orthostasis. Medications: Reviewed: Yes Medication Review Details: Current Medications Acetaminophen (Tylenol) 650 mg PO Q4H PRN PRN Reason: MILD PAIN Last Admin: 09/23/19 20:13 Dose: 650 mg Documented by: Benztropine Mesylate (Cogentin) 1 mg PO BID PRN PRN Reason: Mild Extrapyramidal symptoms Camphor/Menthol/Phenol (Blistex) 1 applic TOPICAL Q1H PRN PRN Reason: DRYNESS Chlorpromazine HCl (Thorazine) 100 mg PO BEDTIME [facility] Last Admin: 09/23/19 20:11 Dose: 100 mg Documented by: Clonidine HCl (Catapres) 0.1 mg PO BEDTIME [facility] Last Admin: 09/23/19 20:14 Dose: 0.1 mg Documented by: Dextrose (D50w) 25 ml IVP ONCE PRN; Protocol PRN Reason: hypoglycemia protocol Dextrose (D50w) 50 ml IVP PRN PRN; Protocol PRN Reason: hypoglycemia protocol Diphenhydramine HCl (Benadryl) 50 mg IM ONCE PRN PRN Reason: Severe Extrapyramidal Symptoms Diphenhydramine HCl (Benadryl) 50 mg IM Q4H PRN PRN Reason: Severe Aggression Doxepin HCl (Sinequan) 100 mg PO BEDTIME JENS Glucagon (Glucagen) 1 mg IM ONCE PRN; Protocol PRN Reason: Adult Acute Hypoglycemia Prot. Hydroxyzine Pamoate (Vistaril) 50 mg PO Q6H PRN PRN Reason: ANXIETY Last Admin: 09/22/19 22:15 Dose: 50 mg Documented by: Dextrose (D5w) 500 mls @ 100 mls/hr IV ONCE PRN; Protocol PRN Reason: Adult Acute Hypoglycemia Prot Insulin Aspart (Novolog) 0 unit SUBCUT WM&BEDTIME [facility]; Protocol Last Admin: 09/24/19 11:42 Dose: 14 unit Documented by: Loperamide HCl (Imodium Capsule) 2 mg PO Q6H PRN PRN Reason: DIARRHEA Lorazepam (Ativan) 2 mg IM Q4H PRN PRN Reason: Severe Aggression Lorazepam (Ativan) 1 mg PO TID [facility] Last Admin: 09/24/19 08:27 Dose: 1 mg Documented by: Nicotine (Nicoderm 21 Mg Patch) 1 patch TRANSDERMA DAILY PRN PRN Reason: NICOTINE WITHDRAWAL Last Admin: 09/24/19 09:11 Dose: 1 patch Documented by: Nicotine Polacrilex (Nicorette) 2 mg BUCCAL Q2H PRN PRN Reason: NICOTINE WITHDRAWAL Last Admin: 09/24/19 03:38 Dose: 2 mg Documented by: Nitroglycerin (Nitrostat) 0.4 mg SUBLINGUAL PRN PRN PRN Reason: Chest Pain Non-Formulary Medication (Insulin Degludec [Tresiba Flextouch U-200]) 60 unit SUBCUT BEDTIME [facility] Last Admin: 09/23/19 22:25 Dose: Not Given Documented by: Ondansetron HCl (Zofran) 4 mg PO Q6H PRN PRN Reason: NAUSEA AND VOMITING Ondansetron HCl (Zofran) 8 mg PO Q12H PRN PRN Reason: NAUSEA/VOMITING Potassium Chloride (Klor-Con 10) 10 meq PO DAILY [facility] Last Admin: 09/24/19 08:27 Dose: 10 meq Documented by: Prazosin HCl (Minipress) 3 mg PO BEDTIME [facility] Ropinirole HCl (Requip) 2 mg PO BEDTIME [facility] Last Admin: 09/23/19 20:11 Dose: 2 mg Documented by: Mental Status Exam MSE Comments: The patient is alert and interpersonally engaged female who presents at her stated age. She walks with some difficulty with a walker and appears to be in mild physical distress. Eye contact is good. Hygiene is fair; no gross neurological deficits, gait is with walker; AIMS=0. Speech is of normal rate and volume, without dysarthria, aprosody or pressure. Thought processes are integrated and free of any racing, blocking or looseness of assoc iation. Judgment is adequate for safety. There is no indication of guarding or paranoia. There is no attention to internal stimuli. Auditory and visual hallucinations are denied. Insight is limited. Problem solving skills are adequate for safety. The patient is oriented to person, place time and situation. No deficits noted in immediate, intermediate, or remote memory. Fund of knowledge is adequate. Mood is much brighter and affect is actually peaceful when she isn't remembering her son. Affect is appropriate. Psychosis: perception unimpaired except through cognitive distortion; reality testing intact. Vitals/I&O/Wt Last Vital Signs Temp 98.0 F 09/24/19 06:00 Pulse 105 H 09/24/19 06:00 Resp 16 09/24/19 06:00 BP 92/46 09/24/19 06:00 Pulse Ox 96 09/24/19 06:00 Data NPU : 09/19/19 19:32 09/19/19 19:32 A&P Assessment and plan (1) Major depression, recurrent: The patient may be responding to modest doses of doxepin and prazosin, perhaps because of her liver disease impairing her capacity to metabolize these agents. Status: Acute (2) Grief at loss of child: Patient is making initial movement towards acceptance. Status: Acute Involuntary Hold Information 96 Hour Hold: 96 Hour Involuntary Admission: No Attestations NPU Medical Necessity Statement*: The patient is now moving. I anticipate 4-5 midnights additional stay Time Spent in Patient Care: Greater than 35 minutes (>than 50% of time spent in counselling and/or direct pt care on unit) . Patient evaluation and education regarding risks and benefits of meds. Pharmacotherapy review and adjustment. 50 minutes. Coding Level of Care Code Acute Traffic Officer for [facility] Fwd Diagnoses Major depression, recurrent F33.9 Grief at loss of child F43.21; Z63.4
[2019-09-24 11:41] LABS: Glucose Point of Care 388 mg/dL (70-110)
[2019-09-24 12:43] VITALS: BP 126/77; PULSE 114; RESP 18; TEMP 36.9; O2SAT 100
[2019-09-24] MEDS: hyDROXYzine 25 mg Capsule 50 MG PO (15:05)
--- NOTE | 2019-09-24 15:05 | PC.NURSE ---
Addendum entered by Holly Chinchilla LPN 09/24/19 15:45: MEDICATION EFFECTIVE. NO FURTHER C/O ANXIETY. Original Note: PRN VISTARIL VISTARIL 50MG PO PER PATIENT C/O ANXIETY. WILL CONTINUE TO MONITOR FOR MEDICATION EFFECTIVENESS.
[2019-09-24 16:45] LABS: Glucose Point of Care 334 mg/dL (70-110)
[2019-09-24 19:27] LABS: Glucose Point of Care 275 mg/dL (70-110)
[2019-09-24] MEDS: ropinirole 2 mg Tablet PO (20:30)
[2019-09-24] MEDS: doxepin 50 mg Capsule 100 MG PO (20:30)
[2019-09-24 20:31] VITALS: BP 134/77
[2019-09-24] MEDS: chlorPROMazine 50 mg Tablet 100 MG PO (20:31)
[2019-09-24] MEDS: prazosin 1 mg Capsule 3 MG PO (20:31)
[2019-09-24] MEDS: cloNIDine 0.1 mg Tablet PO (20:31)
[2019-09-24 22:00] VITALS: BP 134/77; PULSE 124; RESP 22; TEMP 37; O2SAT 100
[2019-09-25] MEDS: hyDROXYzine 25 mg Capsule 50 MG PO (02:05)
[2019-09-25] MEDS: acetaminophen 325 mg Tablet 650 MG PO (03:18)
[2019-09-25] MEDS: nicotine 2 mg Gum BUCCAL ×2 (03:19→06:15)
[2019-09-25 06:00] VITALS: BP 139/88; PULSE 111; RESP 23; TEMP 36.7; O2SAT 97
[2019-09-25 06:15] LABS: Glucose Point of Care 315 mg/dL (70-110)
[2019-09-25] MEDS: potassium chloride ER 10 mEq Tablet PO (07:45)
[2019-09-25] MEDS: nicotine 21 mg Patch 1 PATCH TRANSDERMA (09:43)
[2019-09-25 11:29] LABS: Glucose Point of Care 319 mg/dL (70-110)
--- NOTE | 2019-09-25 12:49 | PM.NDC ---
Diagnoses at Discharge Discharge Diagnosis (1) Major depression, recurrent: Status: Acute (2) Grief at loss of child: Status: Acute Reason for Visit Reason for Visit: SI Brief History: Interval history: The patient reports significant dysphoria and pain. She is able to walk with a walker. She complains of significant sleep difficulties. She has terrible nightmares which have never been treated, including with prazosin titration. She also complains of insomnia and sad doxepin was helpful with this. I will start with minimal intervention in light of the fact that she is alleged to be quite medication seeking. She is grieving over her son who killed himself in some sort of suicide pact with his girlfriend, who also committed suicide. She is grief stricken and it is difficult to tease apart legitimate grief versus other psychiatric disorders just now Hospital Course Hospital Course The patient presented to the emergency room with significant dysphoria and pain, sleep difficulties, nightmares, insomnia, and reported that she was grieving her son who killed himself in sort of a suicide pact with his girlfriend, who aslo committed suicide, about a week ago. She endorsed overwhelming grief and was admitted to the neuropsychiatric unit for definitive treatment for these issues. On the unit, she slowly acclimated to the individual, group, and milieu therapies provided. She was very highly focused on her pain syndrome and feeling like she needs to have that taken care of. She was very upset when the initial pain medications were tapered off, as was planned. She did end up getting an appointment, on 10-02-19, with an alternative provider, other than her PCP, for pain issues. She endorsed the ability to contract for safety, at the time of discharge. During the hospitalization, the patient had routine laboratory studies which were within normal limits, except for a few outliers. Additionally, she had a general medical evaluation which was within normal limits and revealed no new acute processes, except for the reported exacerbation of pain issues. Discharge Summary At the time of discharge the patient denied all lethality, was absent psychosis, and mood and anxiety were well managed. The patient endorsed a plan to avoid all drugs of abuse and to follow-up with outpatient services, as recommended. She was evaluated and deemed to be absent credible lethality, and had achieved the maximum benefit from an inpatient hospitalization, and so she was discharged. Involuntary Hold Information 96 Hour Hold: 96 Hour Involuntary Admission: No Mental Status Exam MSE Comments: This is an obese, white female, with adequate dress, and limited grooming and eye contact. No abnormal movements, except for mild psychomotor retardation and walking with a rolling walker. Cooperative with exam in no acute distress. Speech was slightly decreased rate and volume. Mood described as much better; affect congruent. Thought process, organized. Thought content: patient denied any suicidal or homicidal ideation, there were no delusions reported or noted, patient denied any auditory or visual hallucinations. Attention, concentration, and memory appeared intact but none were formally tested. She is alert and oriented times three. Insight and judgment are improving. Impulse control is limited. Discharge Data Data Completed and Pending: Labs from last 24 hours 09/25/19 09/25/19 09/24/19 11:21 06:09 19:16 POC Glucose 319 315 275 09/24/19 16:43 POC Glucose 334 Vitals: Last Vital Signs Temp 98.1 F 09/25/19 06:00 Pulse 111 H 09/25/19 06:00 Resp 23 H 09/25/19 06:00 BP 139/88 09/25/19 06:00 Pulse Ox 97 09/25/19 06:00 Discharge Plan Discharge Patient Disposition: Home, Self-Care Condition: Stable Prescriptions: New doxepin 50 mg Capsule 100 mg PO BEDTIME 30 Days Qty: 60 RF: 2 prazosin 1 mg Capsule 3 mg PO BEDTIME 30 Days Qty: 90 RF: 2 potassium chloride 10 mEq Tablet Extended Release 10 meq PO DAILY 30 Days Qty: 30 RF: 2 chlorpromazine 50 mg Tablet 100 mg PO BEDTIME 30 Days Qty: 60 RF: 2 Continued nitroglycerin [Nitrostat] 0.4 mg tablet, sublingual 0.4 mg SUBLINGUAL PRN PRN (Reason: Chest Pain) RF: 0 insulin lispro [Humalog KwikPen Insulin] 100 unit/mL Insulin Pen See Rx Instructions .ROUTE .COMPLEX RF: 0 ondansetron HCl [Zofran] 8 mg Tablet 8 mg PO Q12H PRN (Reason: NAUSEA/VOMITING) RF: 0 clonidine HCl 0.1 mg Tablet 0.1 mg PO BEDTIME 30 Days Qty: 30 RF: 2 ropinirole 2 mg tablet 2 mg PO BEDTIME 30 Days Qty: 30 RF: 2 Pristiq 100 mg Tablet Extended Release 24 Hr 100 mg PO DAILY 30 Days Qty: 30 RF: 2 Tresiba FlexTouch U-200 200 unit/mL (3 mL) Insulin Pen 60 unit SUBCUT BEDTIME Qty: 0 RF: 0 Discontinued quetiapine 50 mg tablet 50 mg PO BEDTIME RF: 0 lorazepam [Ativan] 0.5 mg Tablet 0.5 mg PO TID PRN (Reason: Anxiety) RF: 0 Discharge Orders: Discharge Order (Routine); Ordered 09/25/19 Ordered By: Marcell Archibald Referrals: Nate Xie [Other] - 09/29/19 1:00 pm [facility] [Other] - 7-10 days (you said that you have an appointment already scheduled. You said that you might be interested in a pain specialist. you will want to discuss that with your primary care provider and get a referral. ) Eber Garsia, [Primary Care Provider] - Discharge Diet: Diabetic Discharge Activity: Resume usual activity Patient Instructions: Prazosin (By mouth), Doxepin (By mouth), Potassium Chloride (By mouth), Chlorpromazine (By mouth), Depression (DC) Activity Restrictions/Additional Instructions: This might be a possible option for you to consider: [facility] A seminar to learn about the grieving process and how to deal with it. A support group to share with others who understand your pain. When: Next Session to be announced. at 6:30 pm Where: [address] [address] Contact: Kathryn Marshall [phone] [facility] Office [phone] Cost: No Charge for 13 week course. There is a $15 workbook for participants. (Donations for workbooks are accepted.) Learn more about [facility]... [email or web address]://[email or web address].org/about What is [facility]? Ingrid's Story Isac's Story Discharge Date/Time: 09/25/19 13:35 Discharge Attestations NPU Time Spent in Discharge Care*: less than 30 min Specific Discharge Activities: Specific discharge activities: educating patient, discussing with case reviewer/social workers/dc planners, documenting/other paperwork and evaluating patient/reviewing data Coding Level of Care Code Acute Ion Exchange Operator for g Fwd Diagnoses Major depression, recurrent F33.9 Grief at loss of child F43.21; Z63.4
== END 2019-09-25 13:35 | disposition home or self-care (01) | DRG 885 ==
LOC: ER 20:29 → NP 20:39
PROVIDERS: Emergency Medicine; Admitting Provider Psychiatry & Neurology Psychiatry; PCP Internal Medicine; Visit Provider Psychiatry & Neurology Psychiatry
DX: F33.1 Major depressive disorder, recurrent, moderate (principal); K22.6 Gastro-esophageal laceration-hemorrhage syndrome; R45.851 Suicidal ideations; F45.0 Somatization disorder; F43.21 Adjustment disorder with depressed mood; Z81.8 Family history of other mental and behavioral disorders; G89.29 Other chronic pain; M54.5 Low back pain; M16.0 Bilateral primary osteoarthritis of hip; I50.9 Heart failure, unspecified; E11.9 Type 2 diabetes mellitus without complications; K75.81 Nonalcoholic steatohepatitis (NASH); F17.210 Nicotine dependence, cigarettes, uncomplicated
CPT/HCPCS: 12345; 36415; 36416; 71260; 74177; 80053; 80306; 80307; 81003; 82962; 83605; 83690; 85025; 86850; 86900; 93005; 96361; 96372; 96374; 96375; 99282; 99283; 99284; A9270; C9113; J1170; J1815; J2060; J2405; J7030; Q0161; Q9967

== ENCOUNTER 2019-10-02 18:31 | Inpatient (IN) | payer MEDICARE, MEDICAID, SELFPAY ==
--- NOTE | 2019-10-02 18:38 | W.ED.PSYCH ---
HPI - Psych General: Chief Complaint: Psychiatric Symptoms Stated Complaint: SI Time Seen by Provider: 10/02/19 18:37 Source: patient Mode of arrival: ambulatory Limitations: no limitations History of Present Illness: HPI Narrative: Patient is a 54-year-old female who presents to ED today with complaints of suicidal ideations. Patient was noted to just be released from [facility] approximately a week ago for same symptoms. Patient tells me she has struggled to improve. She is having thoughts of wanting to cut herself. She does feel like she wants to . When speaking to patient she also has a complaint of chest pain that has been present over the past few days. Patient tells me she had a Belkys-Valenzuela tear repaired in July at [facility]. She has reported hematemesis over the past week. She states anytime she gets up to walk around she becomes winded and tachycardic. MD complaint: suicidal ideation Onset (ago): day(s) History of same: Yes Review of Systems Const: Denies: fever(s) or chills ENMT: Denies: throat pain or odynophagia Card: Reports: chest pain; Denies: palpitations, irregular heart rhythm, edema, swelling of feet/ankles, lightheadedness, syncope, pre-syncope, dyspnea on exertion, orthopnea, leg pain with exertion or acrocyanosis Resp: Reports: dyspnea (with exertion ); Denies: productive cough, non-productive cough, change in phlegm color, hemoptysis or chest congestion GI: Reports: hematemesis and heartburn; Denies: abdominal pain, nausea, vomiting, diarrhea, change in bowel habits, rectal swelling, change in stool character, hematochezia, melena or white/light colored stool : Denies: flank pain, difficulty voiding, dysuria, urinary frequency, urinary urgency or urinary hesitancy Musc: Denies: neck pain or back pain Skin/Breast: Denies: rash Neuro: Reports: headache(s) (hx of migraines/tension HAs); Denies: numbness in extremities, weakness in extremities, sensory changes or lack of coordination [facility] ED PFSH: Medical History (Updated 10/02/19 @ 21:48 by JEFF Corea) Bilateral primary osteoarthritis of hip Chronic back pain Congestive heart failure Diabetes mellitus H/O Belkys-Valenzuela syndrome MONTANO (nonalcoholic steatohepatitis) Suicidal behavior Surgical History H/O cervical spine surgery H/O colonoscopy History of esophagogastroduodenoscopy Social History Smoking and tobacco status: current every day smoker cigarettes Packs smoked per day: 0.5 Alcohol intake: never Physical Exam Const: COMMON NORMALS: average body habitus, patient oriented x3, no limitations, healthy appearing, alert and well nourished GENERAL APPEARANCE: cooperative ORIENTATION/CONSCIOUSNESS: Yes oriented to person, Yes oriented to place and Yes oriented to time OTHER: wearing sunglasses stating she has a tension headache HENMT: COMMON NORMALS: normocephalic and atraumatic HEAD & SCALP: normocephalic and atraumatic Chest: COMMONS NORMALS: normal inspection of the chest and normal palpation of entire chest wall Resp: COMMON NORMALS: normal respiratory effort and clear to auscultation bilaterally AUSCULTATION: clear to auscultation bilaterally Cardio: COMMON NORMALS: regular rhythm RATE: tachycardic RHYTHM: regular rhythm GI: COMMON NORMALS: Normal to inspection, nondistended, normoactive bowel sounds present, Soft to palpation, No hepatosplenomegaly present and no masses PALPATION: Yes Soft to palpation, Yes Tenderness to palpation present (GI) (epigastric) and Yes No hepatosplenomegaly present OTHER: hemoccult negative : COMMON NORMALS: Yes no CVA tenderness BLADDER/KIDNEY EXAM: Yes no CVA tenderness Back/Pelvis: COMMON NORMALS: no CVA tenderness Extremity: COMMON NORMALS: normal to inspection Neuro: KAMERON COMA SCALE: document GCS findings Kameron coma scale eye opening: Spontaneous [place] coma scale verbal response: Orientated [place] coma scale motor response: Obey commands Kameron coma scale total score: 15 COMMON NORMALS: patient oriented x3, CN's II-XII intact bilaterally, moves all extremities, no focal motor deficits, no sensory deficits noted and gait normal SENSORIUM/ORIENTATION: Yes alert, Yes oriented to person, Yes oriented to place and Yes oriented to time Psych: COMMON NORMALS: mental status grossly normal, Normal thought process present, cooperative, normal affect, speech normal and activity/motor behavior normal; negative for denies suicidal ideation APPEARANCE: Yes grossly normal ATTITUDE: Yes calm ACTIVITY/MOTOR BEHAVIOR: Yes appropriate eye contact SPEECH: Yes normal speech MOOD & AFFECT: Yes euthymic mood THOUGHT PROCESS: Normal thought process present THOUGHT CONTENT: Yes Suicidality present INSIGHT: Good insight present (Psych) JUDGEMENT: Good judgement present (Psych) Skin: COMMON NORMALS: no rashes or lesions noted GENERAL SKIN EXAM: no rashes or lesions noted MDM - Psych MDM Narrative: Medical decision making narrative: Patient is noted to be tachycardic. Her hemoglobin has went from 10.1 to 8.5 over the past 13 days. She is complaining of hematemesis. Spoke to Dr. Barrientos with a plan to perform EGD tomorrow. We will have Dr. Archibald consult on her while in the hospital. Patient CXR appears normal. Lab Data: Labs: Lab Results 10/02/19 10/02/19 10/02/19 Range/Units 18:40 18:40 18:40 WBC 5.1 (4.0-10.0) 10^3/ uL RBC 3.58 L (4.1-5.3) 10^6/u L Hgb 8.5 L (11.5-15.3) g/dL Hct 27.4 L (37.0-47.0) % MCV 76.5 L (81-99) fL MCH 23.7 L (28.0-34.0) pg MCHC 31.0 (30.0-36.0) g/dL RDW 13.7 (12.1-15.1) % Plt Count 116 L (130-400) 10^3/c mm MPV 9.9 (7.4-10.4) fL Neut % (Auto) 70.4 % Lymph % (Auto) 17.9 % Wallace % (Auto) 8.0 % Eos % (Auto) 2.7 % Baso % (Auto) 0.6 % Neut # (Auto) 3.6 (1.8-7.7) 10^3/u L Lymph # (Auto) 0.9 (0.8-4.8) 10^3/u L Wallace # (Auto) 0.4 (0.2-0.9) 10^3/u L Eos # (Auto) 0.1 (0.0-0.8) 10^3/u L Baso # (Auto) 0.0 (0.0-0.1) 10^3/u L Nucleated RBC % (a uto) 0 % Nucleated RBCs # 0.0 /100WBC PT (10.5-13.3) SECO NDS INR (0.8-1.2) APTT (23.9-36.7) SECO NDS Sodium 131 L (136-145) mmol/L Potassium 3.9 (3.5-5.1) mmol/L Chloride 99 (98-107) mmol/L Carbon Dioxide 22 (22-29) mmol/L Anion Gap 13.9 (5-19) BUN 9 (6-20) mg/dL Creatinine 0.5 (0.5-0.9) mg/dL GFR Calculation 129.6 (90-130) mL/min Glucose 347 H (65-115) mg/dL Calculated Osmolal ity 282 L (285-295) mOsm/k g Calcium 9.7 (8.5-10.5) mg/dL Total Bilirubin 0.4 (0.15-1.2) mg/dL AST 21 (0-32) U/L ALT 17 (0-33) U/L Alkaline Phosphata se 147 H (35-105) IU/L Troponin T Gen 5 n g/L 6 (0-10) ng/L Total Protein 6.1 L (6.6-8.7) g/dL Albumin 3.6 (3.5-5.2) g/dL Globulin 2.5 (1.3-4.6) g/dL Salicylates < 0.3 L (3-10) mg/dL Urine Opiates Scre en (Negative) ng/mL Acetaminophen < 5.0 L (10-30) ug/mL Ur Barbiturates Sc reen (Negative) ng/mL Ur Phencyclidine S crn (Negative) ng/mL Ur Amphetamines Sc reen (Negative) ng/mL U Benzodiazepines Scrn (Negative) ng/mL Urine Cocaine Scre en (Negative) ng/mL U Marijuana (THC) Screen (Negative) ng/mL Ethyl Alcohol < 10 (0-10) mg/dL 10/02/19 10/02/19 Range/Units 18:40 19:40 WBC (4.0-10.0) 10^3/ uL RBC (4.1-5.3) 10^6/u L Hgb (11.5-15.3) g/dL Hct (37.0-47.0) % MCV (81-99) fL MCH (28.0-34.0) pg MCHC (30.0-36.0) g/dL RDW (12.1-15.1) % Plt Count (130-400) 10^3/c mm MPV (7.4-10.4) fL Neut % (Auto) % Lymph % (Auto) % Wallace % (Auto) % Eos % (Auto) % Baso % (Auto) % Neut # (Auto) (1.8-7.7) 10^3/u L Lymph # (Auto) (0.8-4.8) 10^3/u L Wallace # (Auto) (0.2-0.9) 10^3/u L Eos # (Auto) (0.0-0.8) 10^3/u L Baso # (Auto) (0.0-0.1) 10^3/u L Nucleated RBC % (a uto) % Nucleated RBCs # /100WBC PT 13.40 H (10.5-13.3) SECO NDS INR 0.99 (0.8-1.2) APTT 30.0 (23.9-36.7) SECO NDS Sodium (136-145) mmol/L Potassium (3.5-5.1) mmol/L Chloride (98-107) mmol/L Carbon Dioxide (22-29) mmol/L Anion Gap (5-19) BUN (6-20) mg/dL Creatinine (0.5-0.9) mg/dL GFR Calculation (90-130) mL/min Glucose (65-115) mg/dL Calculated Osmolal ity (285-295) mOsm/k g Calcium (8.5-10.5) mg/dL Total Bilirubin (0.15-1.2) mg/dL AST (0-32) U/L ALT (0-33) U/L Alkaline Phosphata se (35-105) IU/L Troponin T Gen 5 n g/L (0-10) ng/L Total Protein (6.6-8.7) g/dL Albumin (3.5-5.2) g/dL Globulin (1.3-4.6) g/dL Salicylates (3-10) mg/dL Urine Opiates Scre en Negative (Negative) ng/mL Acetaminophen (10-30) ug/mL Ur Barbiturates Sc reen Negative (Negative) ng/mL Ur Phencyclidine S crn Negative (Negative) ng/mL Ur Amphetamines Sc reen Negative (Negative) ng/mL U Benzodiazepines Scrn Negative (Negative) ng/mL Urine Cocaine Scre en Negative (Negative) ng/mL U Marijuana (THC) Screen Positive H (Negative) ng/mL Ethyl Alcohol (0-10) mg/dL Discharge Plan Discharge Patient Disposition: Admitted As Inpatient Clinical Impression: Suicidal ideation, Acute GI bleeding, Acute blood loss anemia, Hx of Belkys-Valenzuela syndrome Condition: Stable Referrals: Eber Garsia DO [Primary Care Provider] - Coding Level of Care Code ED Filling Hauler Weaving for Chg Fwd Exam Comprehensive
[2019-10-02 18:39] VITALS: BP 136/86; PULSE 116; RESP 18; TEMP 37.3; O2SAT 96; BMI 36.3
--- NOTE | 2019-10-02 18:46 | PC.NURSE ---
Lab at bedside to draw blood.
[2019-10-02 18:49] LABS: Basophils % 0.6 %; Eosinophils # 0.1 10^3/uL (0.0-0.8); Eosinophils % 2.7 %; Hematocrit 27.4 % (37.0-47.0); Hemoglobin 8.5 g/dL (11.5-15.3); Lymphocytes # 0.9 10^3/uL (0.8-4.8); Lymphocytes % 17.9 %; Mean Corpuscular Hemoglobin 23.7 pg (28.0-34.0); Mean Corpuscular Volume 76.5 fL (81-99); Mean Platelet Volume 9.9 fL (7.4-10.4); Monocytes # 0.4 10^3/uL (0.2-0.9); Neutrophils # 3.6 10^3/uL (1.8-7.7); Neutrophils % 70.4 %; Nucleated Red Blood Cells % 0 %; Platelet Count 116 10^3/cmm (130-400); Red Blood Count 3.58 10^6/uL (4.1-5.3); Red Cell Distribution Width 13.7 % (12.1-15.1); White Blood Count 5.1 10^3/uL (4.0-10.0)
--- NOTE | 2019-10-02 18:56 | ECG_ITS ---
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 Measurements Intervals [place] Rate: 110 P: 53 FL: 140 QRS: 33 QRSD: 76 T: 43 QT: 327 QTc: 444 Interpretive Statements SINUS TACHYCARDIA ABNORMAL RHYTHM ECG Compared to ECG 09/19/2019 20:32:34 No significant changes Electronically Signed On 10-02-2019 21:15:03 CDT by Cassie Castillo M.D. [id number]
--- NOTE | 2019-10-02 18:56 | XRR_ITS ---
PROCEDURE INFORMATION: Exam: XR Chest, 1 View Exam date and time: 10/02/2019 7:32 PM Age: 54 years old Clinical indication: Chest pain; Additional info: Chest pain, throat pain TECHNIQUE: Imaging protocol: XR of the chest Views: 1 view. COMPARISON: CR XR chest 1V portable [id number] 07/09/2019 11:32 AM FINDINGS: Tubes, catheters and devices: Hardware spinal fusion of mid and lower cervical spine. Lungs: Unremarkable. No consolidation. Pleural space: Unremarkable. No pleural effusion. No pneumothorax. Heart/Mediastinum: Unremarkable. No cardiomegaly. Bones/joints: Degenerative change of thoracic spine. XR/XR chest 1V portable [id number] IMPRESSION: 1. No acute cardiopulmonary process.
[2019-10-02 19:11] LABS: Alanine Aminotransferase 17 U/L (0-33); Albumin Level 3.6 g/dL (3.5-5.2); Alkaline Phosphatase 147 IU/L (35-105); Anion Gap 13.9 (5-19); Aspartate Amino Transferase 21 U/L (0-32); Blood Urea Nitrogen 9 mg/dL (6-20); Calcium 9.7 mg/dL (8.5-10.5); Carbon Dioxide 22 mmol/L (22-29); Chloride 99 mmol/L (98-107); Globulin 2.5 g/dL (1.3-4.6); Glomerular Filtration Rate 129.6 mL/min (90-130); Glucose 347 mg/dL (65-115); Osmolality Calculated 282 mOsm/kg (285-295); Potassium 3.9 mmol/L (3.5-5.1); Sodium 131 mmol/L (136-145); Total Bilirubin 0.4 mg/dL (0.15-1.2); Total Protein 6.1 g/dL (6.6-8.7)
[2019-10-02 19:13] LABS: Acetaminophen < 5.0 ug/mL (10-30); Alcohol Level < 10 mg/dL (0-10); Salicylate < 0.3 mg/dL (3-10)
[2019-10-02 19:32] LABS: INR 0.99 (0.8-1.2)
--- NOTE | 2019-10-02 19:43 | PC.NURSE ---
EKG done at 1935 and shown to ER doctor
[2019-10-02] MEDS: diphenhydrAMINE 50 mg/mL SDV 1mL IVP (20:15)
[2019-10-02 20:20] LABS: Amphetamines Screen Urine Negative (Negative); Barbiturates Screen Urine Negative (Negative); Benzodiazepines Screen Urine Negative (Negative); Cocaine Screen Urine Negative (Negative); Opiate Screen Urine Negative (Negative); PCP Screen Urine Negative (Negative); THC Screen Urine Positive (Negative)
[2019-10-02] MEDS: pantoprazole 40 mg SDV 80 MG IVP (20:23)
[2019-10-02 20:36] VITALS: RESP 18
[2019-10-02] MEDS: morphine 4 mg/mL SDV 1 mL IVP (20:36)
[2019-10-02] MEDS: ondansetron 2 mg/ML SDV 2 mL 4 MG IVP (20:36)
--- NOTE | 2019-10-02 20:42 | P.HP_ITS ---
Providers/Chief Complaint Primary Care Provider: Eber Garsia DO Chief Complaint: SI History of Present Illness Kay Calles is a 54 year old female who was recently discharged from the [facility] for suicidal ideation, has history of Belkys-Valenzuela tear came in today with worsening of her depression and suicidal ideation. She is suffering from dysphoria insomnia nightmares which all started after her son's suicide attempt. Patient is stating that she had Belkys-Valenzuela repair about a month ago at [facility]. Since then she has been noticing dark-colored stools, she also noticed blood in her vomitus a week ago, she is stating that when her depression gets decompensated she starts experiencing dry heaves and recurrent episodes of emesis. He does not drink alcohol. She also endorsing history of bulimia nervosa in her 20s. She does not induce vomiting anymore. The reason she decided to come to the hospital was because of her active suicidal ideation. In the past she had tried to cut herself. She was thinking of doing the same and decided to come to the hospital to get some help. In the ER she was found to have anemia, Dr. Barrientos was consulted for an EGD in the morning. Patient describes excruciating pain with dry heaves, she denies chest pain on exertion, she denies orthopnea and PND, no previous history of ND or stent placement Review of Systems Const: Denies: fever(s) or chills Eyes: Denies: change in vision ENMT: Denies: throat pain Card: Reports: chest pain; Denies: dyspnea on exertion or orthopnea Resp: Denies: dyspnea GI: Denies: abdominal pain : Denies: flank pain Musc: Denies: neck pain Skin/Breast: Denies: rash Neuro: Denies: headache(s) Psych: Reports: anxiety, depression and suicidal ideation Endo: Denies: polyuria Girma/Lymph: Denies: easy bruising All/Imm: Denies: urticaria Medications/Allergies Home Medications Medication Instructions Recorded Confirmed Last Taken Type nitroglycerin 0.4 mg sublingual 0.4 mg SUBLINGUAL PRN PRN 04/28/19 10/02/19 Unknown History tablet insulin lispro [Humalog KwikPen See Rx Instructions .ROUTE .COMPLEX 07/09/19 10/02/19 Unknown History Insulin] ondansetron HCl [Zofran] 8 mg PO Q12H PRN 09/16/19 10/02/19 09/16/19 History Tresiba FlexTouch U-200 60 unit SUBCUT BEDTIME #0 ml 09/25/19 10/02/19 Unknown Rx chlorpromazine 100 mg PO BEDTIME 30 Days #60 tab 09/25/19 10/02/19 09/30/19 Rx clonidine HCl 0.1 mg PO BEDTIME 30 Days #30 tab 09/25/19 10/02/19 Unknown Rx desvenlafaxine succinate [Pristiq] 100 mg PO DAILY 30 Days #30 tab 09/25/19 10/02/19 09/30/19 Rx doxepin 100 mg PO BEDTIME 30 Days #60 cap 09/25/19 10/02/19 09/30/19 Rx potassium chloride 10 meq PO DAILY 30 Days #30 tab 09/25/19 10/02/19 Unknown Rx prazosin 3 mg PO BEDTIME 30 Days #90 cap 09/25/19 10/02/19 09/30/19 Rx ropinirole 2 mg PO BEDTIME 30 Days #30 tab 09/25/19 10/02/19 09/30/19 Rx pantoprazole [Protonix] 40 mg PO DAILY 10/02/19 10/02/19 Unknown History Allergies Allergy/AdvReac Type Severity Reaction Status Date / Time aspirin Allergy Unknown Unknown Verified 10/02/19 21:04 Cephalosporins Allergy Unknown Unknown Verified 10/02/19 21:04 NSAIDS (Non-Steroidal Allergy Unknown Unknown Verified 10/02/19 21:04 Anti-Inflamma sumatriptan [From Imitrex] Allergy Unknown Unknown Verified 10/02/19 21:04 ibuprofen Allergy UNKNOWN Verified 10/02/19 21:04 [From NeoProfen (ibuprofen lysn)(PF)] PFSH Acute PFSH: Medical History Bilateral primary osteoarthritis of hip Chronic back pain Congestive heart failure Diabetes mellitus H/O Belkys-Valenzuela syndrome MONTANO (nonalcoholic steatohepatitis) Suicidal behavior Surgical History H/O cervical spine surgery H/O colonoscopy History of esophagogastroduodenoscopy Social History Smoking and tobacco status: current every day smoker cigarettes Packs smoked per day: 0.5 Alcohol intake: never Vitals/I&O/Wt Last Vital Signs Temp 99.1 F 10/02/19 18:39 Pulse 116 H 10/02/19 18:39 Resp 18 10/02/19 20:36 BP 136/86 10/02/19 18:39 Pulse Ox 96 10/02/19 18:39 Weight last 48 hrs Weight 81.647 kg Physical Exam Narrative: EXAM NARRATIVE: Head to toe examination Obese female sitting comfortably in her bed S1, S2 no signs of heart failure EOMI, PERRLA Neurological nonfocal exam Active suicidal ideation Abdomen soft, distended, with obesity Multiple skin body tattoos Lungs are clear to auscultation No active signs of edema gangrene ulcer of lower extremities Patient endorses suicidal ideation and depression Data : 10/02/19 18:40 10/02/19 18:40 A&P Assessment and plan (1) Suicidal behavior: Status: Acute (2) Anemia: Status: Acute (3) Major depression, recurrent: Status: Acute (4) Diabetes mellitus: Status: Acute (5) MONTANO (nonalcoholic steatohepatitis): Status: Acute (6) Borderline personality disorder: Status: Acute Additional A&P Information Blood loss microcytic anemia Recent Belkys-Valenzuela repair She has been noticing blood in her vomitus and is endorsing dark-colored stool In the ER FOBT negative We will keep her n.p.o., start Protonix 40 IV twice daily Plan for EGD in the morning, Dr. Barrientos consulted No active decompensation, hemodynamically stable Check iron studies Major depressive disorder with suicidal ideation 96-hour hold One-to-one supervision on medical floor because we do not have ICU bed available at this point, she is deemed low risk and was recently evaluated by p sychiatrist, Type 2 diabetes Poorly controlled We will keep her on sliding scale for now Nonalcoholic steatohepatitis No active ascites No history of portal hypertension or variceal bleed Full code VT prophylaxis SCDs npo Attestations Medical Necessity Statement*: Anticipating stay in the hospital cross more than 2 midnights currently need 96-hour hold and EGD for Belkys-Valenzuela syndromer and active bleeding Time Spent in Patient Care: (>than 50% of time spent in counselling and/or direct pt care on unit) . 50 Coding Level of Care Code Acute Petroleum Analyst for Chg Fwd Diagnoses Suicidal behavior R46.89 Anemia D64.9 Major depression, recurrent F33.9 Diabetes mellitus E11.9 MONTANO (nonalcoholic steatohepatitis) K75.81 Borderline personality disorder F60.3
[2019-10-02] MEDS: sodium chloride 0.9% 1,000 ML 999 ML IV (20:52)
[2019-10-02 21:41] LABS: Troponin T (5th) Once 6 ng/L (0-10)
[2019-10-02 21:55] VITALS: BP 107/72; PULSE 102; RESP 18; O2SAT 97
[2019-10-02 23:32] VITALS: PULSE 106; RESP 16; O2SAT 96
[2019-10-02 23:57] VITALS: BP 107/70; PULSE 95; RESP 14; TEMP 36.8; O2SAT 96
[2019-10-03] VITALS (10 sets, daily range): BP systolic 103–137; BP diastolic 63–81; PULSE 85–110; RESP 12–20; TEMP 36.1–37.1; O2SAT 95–99
[2019-10-03 00:10] LABS: Estmated Average Glucose 180; Hemoglobin A1C 7.9 % (4.0-6.0)
[2019-10-03 00:12] LABS: Hematocrit 25.7 % (37.0-47.0)
[2019-10-03] MEDS: pantoprazole 40 mg SDV IVP (00:21)
[2019-10-03] MEDS: OLANZapine 10 mg VIAL IM (00:21)
[2019-10-03] MEDS: sodium chloride 0.9% 1,000 ML 100 ML IV (00:22)
[2019-10-03] MEDS: lidocaine 2% viscous 15 ML, aluminum-mag hydrox-simethicon 30 ML, sucralfate oral liq 1 GM PO (00:34)
[2019-10-03 01:32] LABS: Ferritin 11 ng/mL (15-150); Iron 26 ug/dL (37-145); Percent Saturation 6.1 % (20-50); Total Iron Binding Capacity 421 mcg/dl; Unsaturated Iron Binding 395 ug/dL (112-347)
[2019-10-03] MEDS: morphine IR 15 mg Tablet PO (01:32)
[2019-10-03 03:47] LABS: Basophils % 0.6 %; Eosinophils # 0.2 10^3/uL (0.0-0.8); Eosinophils % 3.6 %; Hematocrit 26.8 % (37.0-47.0); Lymphocytes # 1.2 10^3/uL (0.8-4.8); Lymphocytes % 24.5 %; Mean Corpuscular HGB Conc 29.9 g/dL (30.0-36.0); Mean Corpuscular Hemoglobin 23.3 pg (28.0-34.0); Mean Corpuscular Volume 78.1 fL (81-99); Mean Platelet Volume 10.2 fL (7.4-10.4); Monocytes # 0.4 10^3/uL (0.2-0.9); Monocytes % 8.5 %; Neutrophils # 2.9 10^3/uL (1.8-7.7); Neutrophils % 62.6 %; Nucleated Red Blood Cells % 0 %; Platelet Count 118 10^3/cmm (130-400); Red Blood Count 3.43 10^6/uL (4.1-5.3); Red Cell Distribution Width 13.8 % (12.1-15.1); White Blood Count 4.7 10^3/uL (4.0-10.0)
[2019-10-03 04:15] LABS: Anion Gap 14.9 (5-19); Blood Urea Nitrogen 8 mg/dL (6-20); Calcium 8.8 mg/dL (8.5-10.5); Carbon Dioxide 22 mmol/L (22-29); Chloride 105 mmol/L (98-107); Glomerular Filtration Rate 129.6 mL/min (90-130); Glucose 214 mg/dL (65-115); Osmolality Calculated 288 mOsm/kg (285-295); Potassium 3.9 mmol/L (3.5-5.1); Sodium 138 mmol/L (136-145)
[2019-10-03] MEDS: nicotine 14 mg Patch 1 PATCH TRANSDERMA (06:44)
[2019-10-03 06:52] LABS: Glucose Point of Care 174 mg/dL (70-110)
--- NOTE | 2019-10-03 07:50 | ANES.PREANE2 ---
Pre-Anesthetic Assessment Pre-Anesthetic Assessment: Height/Weight: Height 1.5 m Weight 81.647 kg Temp Pulse Resp BP Pulse Ox 98.5 F 90 12 137/80 95 10/03/19 04:18 10/03/19 04:18 10/03/19 04:18 10/03/19 04:18 10/03/19 04:18 Preop Diagnosis: hematemesis Proposed Procedure: Operation Date: 10/03/19 08:15 Proposed Procedures p EGD(Not Applicable) - Raman Barrientos MD Was Beta Britney taken within 24 hours: N/A Last intake: 2 days Social: Social History: Tobacco (3cig day) Exam: Pre-Anes Outpt Exam: alert, oriented x 3, clear to auscultation bilaterally and regular rate & rhythm Airway: Submandibular: WNL Cervical ROM: WNL MP: 3 Dentition: False (top and bottom) History/ROS: No significant history except as noted and No significant complaints Pulmonary: Pulmonary: COPD and SOB CV/HEM: CV/HEM: Anemia and CHF : : None reported Hepatic: Hepatic: Hepatitis GI: GI: GERD Comments: hx belkys feliciano tear repair 1 mo ago Metabolic: Metabolic: DM and Morbid obesity Musc/skel: Musc/skel: Lower Back Pain and OA/DJD Comments: chronic pain Neuropsych: Neuropsych: Anxiety and Depression Comments: suicidal ideation Anesthetic Plan: ASA status: 4 Anesthesia: MAC Meds/Allergies Current Medications: Current Medications Generic Name Dose Route Start Last Admin Trade Name Freq PRN Reason Stop Dose Admin Sodium Chloride 1,000 mls @ 100 m ls/hr 10/02/19 23:32 10/03/19 00:22 Sodium Chloride 0.9% IV 100 mls/hr .Q10H JENS Administration Insulin Aspart 0 unit 10/03/19 08:00 10/03/19 07:42 Novolog SUBCUT 4 unit WM&BEDTIME JENS Administration Protocol Nicotine 1 patch 10/03/19 06:40 10/03/19 06:44 Nicoderm 14 Mg P atch TRANSDERMA 1 patch DAILY JENS Administration Pantoprazole Sodiu m 40 mg 10/02/19 23:32 10/03/19 00:21 Protonix IVP 40 mg Q12H JENS Administration PFSH Anesthesia PFSH: Medical History Bilateral primary osteoarthritis of hip Chronic back pain Congestive heart failure Diabetes mellitus H/O Belkys-Feliciano syndrome MONTANO (nonalcoholic steatohepatitis) Suicidal behavior Surgical History H/O cervical spine surgery H/O colonoscopy History of esophagogastroduodenoscopy Social History Smoking and tobacco status: current every day smoker cigarettes Packs smoked per day: 0.5 Alcohol intake: never Data Anesthesia CBC & Chem 7: 10/03/19 03:12 10/03/19 03:12 Other Labs: Laboratory Results - last 48 hr 10/02/19 10/02/19 10/02/19 18:40 18:40 18:40 WBC 5.1 RBC 3.58 L Hgb 8.5 L Hct 27.4 L MCV 76.5 L MCH 23.7 L MCHC 31.0 RDW 13.7 Plt Count 116 L MPV 9.9 Neut % (Auto) 70.4 Lymph % (Auto) 17.9 [place] % (Auto) 8.0 Eos % (Auto) 2.7 Baso % (Auto) 0.6 Neut # (Auto) 3.6 Lymph # (Auto) 0.9 [place] # (Auto) 0.4 Eos # (Auto) 0.1 Baso # (Auto) 0.0 Nucleated RBC % (auto) 0 Nucleated RBCs # 0.0 PT INR APTT Sodium 131 L Potassium 3.9 Chloride 99 Carbon Dioxide 22 Anion Gap 13.9 BUN 9 Creatinine 0.5 GFR Calculation 129.6 Glucose 347 H POC Glucose Estimat Average Glucose Hemoglobin A1c Calculated Osmolality 282 L Calcium 9.7 Iron TIBC % Saturation Unsat Iron Binding Ferritin Total Bilirubin 0.4 AST 21 ALT 17 Alkaline Phosphatase 147 H Troponin T Gen 5 ng/L 6 Total Protein 6.1 L Albumin 3.6 Globulin 2.5 Salicylates < 0.3 L Urine Opiates Screen Acetaminophen < 5.0 L Ur Barbiturates Screen Ur Phencyclidine Scrn Ur Amphetamines Screen U Benzodiazepines Scrn Urine Cocaine Screen U Marijuana (THC) Screen Ethyl Alcohol < 10 10/02/19 10/02/19 10/02/19 18:40 18:40 18:40 WBC RBC Hgb Hct MCV MCH MCHC RDW Plt Count MPV Neut % (Auto) Lymph % (Auto) [place] % (Auto) Eos % (Auto) Baso % (Auto) Neut # (Auto) Lymph # (Auto) [place] # (Auto) Eos # (Auto) Baso # (Auto) Nucleated RBC % (auto) Nucleated RBCs # PT 13.40 H INR 0.99 APTT 30.0 Sodium Potassium Chloride Carbon Dioxide Anion Gap BUN Creatinine GFR Calculation Glucose POC Glucose Estimat Average Glucose 180 Hemoglobin A1c 7.9 H Calculated Osmolality Calcium Iron 26 L TIBC 421 % Saturation 6.1 L Unsat Iron Binding 395 H Ferritin 11 L Total Bilirubin AST ALT Alkaline Phosphatase Troponin T Gen 5 ng/L Total Protein Albumin Globulin Salicylates Urine Opiates Screen Acetaminophen Ur Barbiturates Screen Ur Phencyclidine Scrn Ur Amphetamines Screen U Benzodiazepines Scrn Urine Cocaine Screen U Marijuana (THC) Screen Ethyl Alcohol 10/02/19 10/02/19 10/03/19 18:40 19:40 03:12 WBC 4.7 RBC 3.43 L Hgb 8.0 L 8.0 L Hct 25.7 L 26.8 L MCV 78.1 L MCH 23.3 L MCHC 29.9 L RDW 13.8 Plt Count 118 L MPV 10.2 Neut % (Auto) 62.6 Lymph % (Auto) 24.5 [place] % (Auto) 8.5 Eos % (Auto) 3.6 Baso % (Auto) 0.6 Neut # (Auto) 2.9 Lymph # (Auto) 1.2 [place] # (Auto) 0.4 Eos # (Auto) 0.2 Baso # (Auto) 0.0 Nucleated RBC % (auto) 0 Nucleated RBCs # 0.0 PT INR APTT Sodium Potassium Chloride Carbon Dioxide Anion Gap BUN Creatinine GFR Calculation Glucose POC Glucose Estimat Average Glucose Hemoglobin A1c Calculated Osmolality Calcium Iron TIBC % Saturation Unsat Iron Binding Ferritin Total Bilirubin AST ALT Alkaline Phosphatase Troponin T Gen 5 ng/L Total Protein Albumin Globulin Salicylates Urine Opiates Screen Negative Acetaminophen Ur Barbiturates Screen Negative Ur Phencyclidine Scrn Negative Ur Amphetamines Screen Negative U Benzodiazepines Scrn Negative Urine Cocaine Screen Negative U Marijuana (THC) Screen Positive H Ethyl Alcohol 10/03/19 10/03/19 03:12 06:31 WBC RBC Hgb Hct MCV MCH MCHC RDW Plt Count MPV Neut % (Auto) Lymph % (Auto) [place] % (Auto) Eos % (Auto) Baso % (Auto) Neut # (Auto) Lymph # (Auto) [place] # (Auto) Eos # (Auto) Baso # (Auto) Nucleated RBC % (auto) Nucleated RBCs # PT INR APTT Sodium 138 Potassium 3.9 Chloride 105 Carbon Dioxide 22 Anion Gap 14.9 BUN 8 Creatinine 0.5 GFR Calculation 129.6 Glucose 214 H POC Glucose 174 Estimat Average Glucose Hemoglobin A1c Calculated Osmolality 288 Calcium 8.8 Iron TIBC % Saturation Unsat Iron Binding Ferritin Total Bilirubin AST ALT Alkaline Phosphatase Troponin T Gen 5 ng/L Total Protein Albumin Globulin Salicylates Urine Opiates Screen Acetaminophen Ur Barbiturates Screen Ur Phencyclidine Scrn Ur Amphetamines Screen U Benzodiazepines Scrn Urine Cocaine Screen U Marijuana (THC) Screen Ethyl Alcohol Cardiac Studies: No Data to Display
[2019-10-03] MEDS: sodium chloride 0.9% 1,000 ML 30 ML IV (08:11)
--- NOTE | 2019-10-03 08:33 | P.CONIM_ITS ---
Providers/Reason For Consult Consulting Physican/Specialty*: Margaret Veras Reason for Consult*: Hematemesis Attending Physician: Robby Rodríguez MD Primary Care Provider: Eber Garsia DO History of Present Illness History of Present Illness Kay Calles is a 54 year old female presented to the last night with suicidal ideation and was noted to be anemic with a hemoglobin around 8. Patient states that she has been having intermittent episodes of hematemesis. She denies any abdominal pain but has some chest pain. She apparently had repair of Belkys-Valenzuela tear in [place] 3 weeks ago. She denies any melena. Review of Systems General: Reports: 10 or more systems reviewed and unremarkable except in HPI and below Meds/Allergies Home Medications and Allergies Home Medications Medication Instructions Recorded Confirmed Last Taken Type nitroglycerin 0.4 mg sublingual 0.4 mg SUBLINGUAL PRN PRN 04/28/19 10/02/19 Unknown History tablet insulin lispro [Humalog KwikPen See Rx Instructions .ROUTE .COMPLEX 07/09/19 10/02/19 Unknown History Insulin] ondansetron HCl [Zofran] 8 mg PO Q12H PRN 09/16/19 10/02/19 09/16/19 History Tresiba FlexTouch U-200 60 unit SUBCUT BEDTIME #0 ml 09/25/19 10/02/19 Unknown Rx chlorpromazine 100 mg PO BEDTIME 30 Days #60 tab 09/25/19 10/02/19 09/30/19 Rx clonidine HCl 0.1 mg PO BEDTIME 30 Days #30 tab 09/25/19 10/02/19 Unknown Rx desvenlafaxine succinate [Pristiq] 100 mg PO DAILY 30 Days #30 tab 09/25/19 06/2 08/2609/30/19 Rx doxepin 100 mg PO BEDTIME 30 Days #60 cap 09/25/19 10/02/19 09/30/19 Rx potassium chloride 10 meq PO DAILY 30 Days #30 tab 09/25/19 10/02/19 Unknown Rx prazosin 3 mg PO BEDTIME 30 Days #90 cap 09/25/19 10/02/19 09/30/19 Rx ropinirole 2 mg PO BEDTIME 30 Days #30 tab 09/25/19 10/02/19 09/30/19 Rx pantoprazole [Protonix] 40 mg PO DAILY 10/02/19 10/02/19 Unknown History Allergies Allergy/AdvReac Type Severity Reaction Status Date / Time aspirin Allergy Unknown Unknown Verified 10/02/19 21:04 Cephalosporins Allergy Unknown Unknown Verified 10/02/19 21:04 NSAIDS (Non-Steroidal Allergy Unknown Unknown Verified 10/02/19 21:04 Anti-Inflamma sumatriptan [From Imitrex] Allergy Unknown Unknown Verified 10/02/19 21:04 ibuprofen Allergy UNKNOWN Verified 10/02/19 21:04 [From NeoProfen (ibuprofen lysn)(PF)] Current Medications Current Medications Generic Name Dose Route Start Last Admin Trade Name Freq PRN Reason Stop Dose Admin Sodium Chloride 1,000 mls @ 100 mls/hr 10/02/19 23:32 10/03/19 00:22 Sodium Chloride 0.9% IV 100 mls/hr .Q10H JENS Administration Sodium Chloride 1,000 mls @ 30 mls/hr 10/03/19 08:00 10/03/19 08:11 Sodium Chloride 0.9% IV 10/04/19 07:59 30 mls/hr .Q24H JENS Administration Insulin Aspart 0 unit 10/03/19 08:00 10/03/19 07:42 Novolog SUBCUT 4 unit WM&BEDTIME JENS Administration Protocol Nicotine 1 patch 10/03/19 06:40 10/03/19 06:44 Nicoderm 14 Mg Patch TRANSDERMA 1 patch DAILY JENS Administration Pantoprazole Sodium 40 mg 10/02/19 23:32 10/03/19 00:21 Protonix IVP 40 mg Q12H JENS Administration PFSH Acute PFSH: Medical History Bilateral primary osteoarthritis of hip Chronic back pain Congestive heart failure Diabetes mellitus H/O Belkys-Valenzuela syndrome MONTANO (nonalcoholic steatohepatitis) Suicidal behavior Surgical History H/O cervical spine surgery H/O colonoscopy History of esophagogastroduodenoscopy Social History Smoking and tobacco status: current every day smoker cigarettes Packs smoked per day: 0.5 Alcohol intake: never Vitals/I&O/Wt Last Vital Signs Temp 97.9 F 10/03/19 07:55 Pulse 91 10/03/19 07:55 Resp 20 H 10/03/19 07:55 BP 120/80 10/03/19 07:55 Pulse Ox 96 10/03/19 07:55 10/02/19 10/03/19 10/03/19 22:59 06:59 14:59 Intake Total 1120 / 1120 Balance 1120 / 1120 Weight last 48 hrs Weight 180 lb Physical Exam Narrative: EXAM NARRATIVE: HEENT: Normocephalic Eye: Sclera /conjunctiva normal Respiratory and chest: Bilateral clear breath sounds on auscultation Cardiovascular: Normal S1 and S2 heart sounds Abdomen: Soft to palpation Neurological: Oriented to place person and time Skin: Intact, no lesions appreciated on gross exam A&P Assessment and plan (1) Acute GI bleedin-year-old female with suicide ideation with recent repair of Belkys- Valenzuela tear who presents with hematemesis. Plan for EGD under [facility] Procedure, risks, benefits and alternatives have been discussed with the patient who wishes to proceed with surgery. Status: Acute Coding Level of Care Code Acute Quill Machine Operator for [facility] Fwd Diagnoses Acute GI bleeding K92.2
--- NOTE | 2019-10-03 09:24 | ANE.PACU2 ---
Inpatient post-anesthesia follow up: Airway intact: Yes Vital signs: Temperature 97 F Pulse Rate [Monito r] 116 Pulse Rate [Orthos tatic 110 Standing Left Radi al] Pulse Rate [Orthos tatic 99 Sitting Left Radia l] Pulse Rate [Orthos tatic Lying 97 Left Radial] Pulse Rate 95 Respiratory Rate 18 Blood Pressure [Or thostatic 113/73 Standing Left Arm] Blood Pressure [Or thostatic 104/63 Sitting Left Arm] Blood Pressure [Or thostatic 134/80 Lying Left Arm] Blood Pressure [Le ft Arm] 136/86 Blood Pressure 103/75 Pulse Oximetry 95 Oxygen Delivery Me thod Room Air Oxygen Flow Rate 3 Fraction of Inspir ed Oxygen Hydration adequate: Yes Nausea and vomiting: No Mental status: Baseline
[2019-10-03] MEDS: iron sucrose 200 MG in sodium chloride 0.9% (100 ml) 100 ML 220 MG IV (10:41)
[2019-10-03 11:13] LABS: Glucose Point of Care 196 mg/dL (70-110)
--- NOTE | 2019-10-03 11:19 | PC.CHAP ---
Pastoral Care Encounter/Spiritual Assessment Type of Contact [] Declined city solicitor visit [] Patient/Family/Request visit [] Outpatient visit [] Follow-up visit [] Physician referral [] Code/Alert [x] Routine visit [] Staff referral [] Actively dying [] Patient sleeping [] Family support [] [] Out of room [] Palliative care [] [] Receiving care in room [] Pre-surgical visit [] Trauma [] Long length of stay [] ICU visit [] Other: setter present Relational/Emotional Strength [] Patient feels connected with others/family/visitors/staff [] Distress [] Loneliness/isolation [] Abandonment Spirituality of Patient [] Person of Aparna [] Attends Restorationism of their [place] [] Believes in Prayer [] Reads Bible or Anglican materials [] There are Spiritual issues to be addressed Outdoor Studies Director Interventions [x] Prayer [x] Active listening [x] Non-anxious presence [x] Spiritual/emotional support [] Crisis/trauma care [] Spiritual counseling [] Bereavement support [] Provided bereavement packet [] Provided Bible/devotional materials [] Provided toy/stuffed animal, coloring book to patient or family member [] Provided Communion [] Anointing/[place] [] Salvation [x] Completed spiritual assessment [] Other: Impact on Illness or Injury [] Angry [] Fearful [] Anxious [] Often cries [] Exhaustion [] Unable to work [] Unable to attend islam [] Unable to walk/stand [] Unable to read [] Unable to drive [] Unable to eat/drink [] Unable to sleep [] Unable to be with family [] Patient intubated [] Other: Summary Patient dealing with a lot of issues.. of son, and girl friend. Norris seems to be stronger. Time spent with patient 15 min
--- NOTE | 2019-10-03 13:12 | P.PN_ITS ---
Subjective Subjective: Interval history: Kay reports she did okay with her meal. History and physical was reviewed. EGD today demonstrated no bleeding. Patient reports she will occasionally have some blood streaked emesis. She states she vomits because she is so stressed regarding the recent of a child. She is still suicidal, and would like to go to the neuropsychiatric unit. Medications: Reviewed: Yes Vitals/I&O/Wt Last Vital Signs Temp 97 F L 10/03/19 08:44 Pulse 95 10/03/19 08:54 Resp 18 10/03/19 08:54 BP 103/75 10/03/19 08:54 Pulse Ox 95 10/03/19 08:54 10/02/19 10/03/19 10/03/19 22:59 06:59 14:59 Intake Total 1120 / 1120 200 / 200 Balance 1120 / 1120 200 / 200 Weight last 48 hrs Weight 81.647 kg Physical Exam Narrative: EXAM NARRATIVE: General exam no apparent distress Cardiovascular regular in rhythm without murmur Lungs clear Abdomen is soft with positive bowel sounds Extremities no sinus clubbing or edema Data : 10/03/19 03:12 10/03/19 03:12 A&P Assessment and plan (1) Suicidal behavior: Transfer to neuropsychiatric unit Status: Acute (2) Anemia: Hemoglobin has been stable overnight. We will continue to monitor. No e vidence of active bleeding on EGD. Iron infusion today Overall asymptomatic Consider colonoscopy as an outpatient secondary to anemia. She reports she frequently has polyps on her colonoscopy last one was done 2 years ago. She states that she had been instructed to get 1 every year She has had no significant stools in the hospital to suggest brisk GI bleeding. Status: Acute (3) Major depression, recurrent: Status: Acute (4) Diabetes mellitus: Continue sliding scale, Tresiba Status: Acute (5) MONTANO (nonalcoholic steatohepatitis): Status: Acute (6) Borderline personality disorder: Status: Acute Additional A&P Information History of Belkys-Valenzuela tear, with clipping of area. Continue Protonix Full code SCDs for DVT prophylaxis Attestations Medical Necessity Statement*: Needs continued hospitalization, for close follow-up secondary to suicidal ideation. Coding Level of Care Code Acute Melter Clerk for [facility] Fwd Diagnoses Suicidal behavior R46.89 Anemia D64.9 Major depression, recurrent F33.9 Diabetes mellitus E11.9 MONTANO (nonalcoholic steatohepatitis) K75.81 Borderline personality disorder F60.3
--- NOTE | 2019-10-03 13:53 | PC.RESP ---
Smoking Cessation information and a schedule of classes sent to patient.
[2019-10-03] MEDS: diphenhydrAMINE 25 mg Capsule PO (14:02)
[2019-10-03] MEDS: TRAMadol 50 mg Tablet PO ×2 (14:54→21:16)
[2019-10-03 17:27] LABS: Glucose Point of Care 242 mg/dL (70-110)
[2019-10-03] MEDS: pantoprazole DR 40 mg Tablet PO (17:42)
[2019-10-03 20:04] LABS: Glucose Point of Care 215 mg/dL (70-110)
[2019-10-03] MEDS: prazosin 1 mg Capsule 3 MG PO (21:12)
[2019-10-03] MEDS: cloNIDine 0.1 mg Tablet PO (21:12)
[2019-10-03] MEDS: ropinirole 2 mg Tablet PO (21:12)
[2019-10-03] MEDS: doxepin 50 mg Capsule 100 MG PO (21:13)
[2019-10-04] MEDS: TRAMadol 50 mg Tablet PO ×2 (04:34→15:34)
[2019-10-04 06:00] VITALS: BP 100/60; PULSE 105; RESP 16; TEMP 36.7; O2SAT 94
[2019-10-04 06:00] LABS: Basophils % 0.2 %; Eosinophils # 0.1 10^3/uL (0.0-0.8); Eosinophils % 2.2 %; Hematocrit 25.3 % (37.0-47.0); Hemoglobin 7.7 g/dL (11.5-15.3); Lymphocytes # 0.6 10^3/uL (0.8-4.8); Lymphocytes % 14.7 %; Mean Corpuscular HGB Conc 30.4 g/dL (30.0-36.0); Mean Corpuscular Hemoglobin 23.6 pg (28.0-34.0); Mean Corpuscular Volume 77.6 fL (81-99); Mean Platelet Volume 10.6 fL (7.4-10.4); Monocytes # 0.3 10^3/uL (0.2-0.9); Monocytes % 6.5 %; Neutrophils # 3.2 10^3/uL (1.8-7.7); Neutrophils % 75.9 %; Nucleated Red Blood Cells % 0 %; Platelet Count 97 10^3/cmm (130-400); Red Blood Count 3.26 10^6/uL (4.1-5.3); Red Cell Distribution Width 13.8 % (12.1-15.1); White Blood Count 4.2 10^3/uL (4.0-10.0)
[2019-10-04 07:03] LABS: Glucose Point of Care 222 mg/dL (70-110)
[2019-10-04] MEDS: pantoprazole DR 40 mg Tablet PO ×2 (08:26→17:42)
[2019-10-04] MEDS: desvenlafaxine 50 mg Tablet 100 MG PO (08:26)
[2019-10-04] MEDS: potassium chloride ER 10 mEq Tablet PO (08:26)
[2019-10-04] MEDS: nicotine 14 mg Patch 1 PATCH TRANSDERMA (08:26)
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
[2019-10-04 11:20] LABS: Glucose Point of Care 260 mg/dL (70-110)
--- NOTE | 2019-10-04 11:31 | P.PN_ITS ---
Subjective Subjective: Interval history: Kay reports she is doing okay. She would like some medicine for generalized pain, preferring a narcotic. I told her that this may affect her psychiatric treatment and I would like psychiatry to see her regarding this as well. It is certainly not anything that could continue on discharge. She should not have any anti-inflammatory secondary to previous concern of GI bleeding. Medications: Reviewed: Yes Vitals/I&O/Wt Last Vital Signs Temp 98.0 F 10/04/19 06:00 Pulse 105 H 10/04/19 06:00 Resp 16 10/04/19 06:00 BP 100/60 10/04/19 06:00 Pulse Ox 94 10/04/19 06:00 Weight last 48 hrs Weight 81.647 kg Physical Exam Narrative: EXAM NARRATIVE: General exam no apparent distress Cardiovascular regular in rhythm without murmur Lungs clear Abdomen is soft with positive bowel sounds Extremities no sinus clubbing or edema Data : 10/04/19 04:24 10/03/19 03:12 A&P Assessment and plan (1) Suicidal behavior: Appreciate psychiatric consultation. She has been transferred to the neuropsychiatric unit. Status: Acute (2) Anemia: Hemoglobin has drifted down slightly to 7.7. No evidence of active bleeding on EGD. She has had no significant bowel movements. She received an iron infusion on October 02. She refuses to take iron orally reporting it triggers her migraines. She is asymptomatic in regards to her anemia. Consider colonoscopy as an outpatient secondary to anemia. She reports she frequently has polyps on her colonoscopy last one was done [address] ates that she had been instructed to get 1 every year Repeat hemoglobin tomorrow. Status: Acute (3) Major depression, recurrent: Status: Acute (4) Diabetes mellitus: Continue sliding scale, Tresiba Status: Acute (5) MONTANO (nonalcoholic steatohepatitis): Status: Acute (6) Borderline personality disorder: Status: Acute Additional A&P Information History of Belkys-Valenzuela tear, with clipping of area. Continue Protonix Full code Attestations 2 Medical Necessity Statement*: Needs continued hospital stay for evaluation of major depression with suicidal ideation. Coding Level of Care Code Acute Senior [employer] Specialist for [facility] Diagnoses Suicidal behavior R46.89 Anemia D64.9 Major depression, recurrent F33.9 Diabetes mellitus E11.9 MONTANO (nonalcoholic steatohepatitis) K75.81 Borderline personality disorder F60.3
[2019-10-04 14:00] VITALS: BP 124/87; PULSE 98; RESP 19; TEMP 36.6
[2019-10-04 16:49] LABS: Glucose Point of Care 298 mg/dL (70-110)
[2019-10-04 20:11] LABS: Glucose Point of Care 320 mg/dL (70-110)
[2019-10-04] MEDS: doxepin 50 mg Capsule 100 MG PO (20:59)
[2019-10-04] MEDS: ropinirole 2 mg Tablet PO (20:59)
[2019-10-04] MEDS: trazodone 50 mg Tablet PO (21:00)
[2019-10-04] MEDS: prazosin 1 mg Capsule 3 MG PO (21:00)
[2019-10-04 22:00] VITALS: BP 119/67; PULSE 101; RESP 18; TEMP 37.1; O2SAT 96
[2019-10-05 04:57] LABS: Basophils % 0.6 %; Eosinophils # 0.1 10^3/uL (0.0-0.8); Eosinophils % 2.1 %; Hematocrit 25.8 % (37.0-47.0); Hemoglobin 7.8 g/dL (11.5-15.3); Lymphocytes # 0.8 10^3/uL (0.8-4.8); Lymphocytes % 24.2 %; Mean Corpuscular HGB Conc 30.2 g/dL (30.0-36.0); Mean Corpuscular Hemoglobin 23.1 pg (28.0-34.0); Mean Corpuscular Volume 76.6 fL (81-99); Mean Platelet Volume 10.3 fL (7.4-10.4); Monocytes # 0.3 10^3/uL (0.2-0.9); Monocytes % 9.4 %; Neutrophils # 2.1 10^3/uL (1.8-7.7); Neutrophils % 62.8 %; Nucleated Red Blood Cells % 0 %; Platelet Count 104 10^3/cmm (130-400); Red Blood Count 3.37 10^6/uL (4.1-5.3); Red Cell Distribution Width 13.9 % (12.1-15.1); White Blood Count 3.3 10^3/uL (4.0-10.0)
[2019-10-05] MEDS: TRAMadol 50 mg Tablet PO ×3 (05:35→14:59)
[2019-10-05 06:00] VITALS: BP 111/62; PULSE 105; RESP 17; TEMP 36.5; O2SAT 95
[2019-10-05 06:35] VITALS: BP 117/75; PULSE 74; RESP 18; TEMP 37.1
[2019-10-05 06:49] LABS: Glucose Point of Care 318 mg/dL (70-110)
[2019-10-05] MEDS: hyDROXYzine 25 mg Capsule 50 MG PO ×3 (07:01→20:43)
--- NOTE | 2019-10-05 07:02 | PC.NURSE ---
PRN VISTARIL PT HAVING INCREASING ANXIETY. ADMINISTERED VISTARIL 50MG PO. WILL MONITOR FOR MEDICATION EFFECTIVENESS.
[2019-10-05] MEDS: nicotine 14 mg Patch 1 PATCH TRANSDERMA (09:22)
[2019-10-05] MEDS: pantoprazole DR 40 mg Tablet PO ×2 (09:23→17:52)
[2019-10-05] MEDS: potassium chloride ER 10 mEq Tablet PO (09:23)
[2019-10-05] MEDS: desvenlafaxine 50 mg Tablet 100 MG PO (09:23)
[2019-10-05] MEDS: OLANZapine 5 mg ODT PO ×2 (10:13→17:52)
--- NOTE | 2019-10-05 10:33 | P.PN_ITS ---
Subjective Subjective: Interval history: Kay reports she is doing well. No vomiting. No blood in her stool. Feels good with the exception of back pain which she states is impairing her recovery. She states she wakes up in significant pain and would like something for this. Medications: Reviewed: Yes Vitals/I&O/Wt Last Vital Signs Temp 98.8 F 10/05/19 06:35 Pulse 74 10/05/19 06:35 Resp 18 10/05/19 06:35 BP 117/75 10/05/19 06:35 Pulse Ox 95 10/05/19 06:00 Weight last 48 hrs Weight 94.801 kg Physical Exam Narrative: EXAM NARRATIVE: General exam no apparent distress Cardiovascular regular in rhythm without murmur Lungs clear Abdomen is soft with positive bowel sounds Extremities no sinus clubbing or edema Data : 10/05/19 04:33 10/03/19 03:12 A&P Assessment and plan (1) Suicidal behavior: Appreciate psychiatric consultation. She has been transferred to the neuropsychiatric unit. Status: Acute (2) Anemia: Hemoglobin is 7.8, stable this morning. No evidence of active bleeding on EGD. She has had no significant bowel movements. She received an iron infusion on October 02. She refuses to take iron orally reporting it triggers her migraines. She is asymptomatic in regards to her anemia. Consider colonoscopy as an outpatient secondary to anemia. She reports she frequently has polyps on her colonoscopy last one was done 4 years ago. She states that she had been instructed to get 1 every year She should have a repeat CBC and approximately 5 to 7 days. She indicates she will follow-up with Dr. King in regards to her anemia as he has given her iron infusions in the past. Please arrange this on discharge. At this point I will sign off Status: Acute (3) Major depression, recurrent: Status: Acute (4) Diabetes mellitus: Continue sliding scale, Tresiba Status: Acute (5) MONTANO (nonalcoholic steatohepatitis): Status: Acute (6) Borderline personality disorder: Status: Acute Additional A&P Information History of Belkys-Valenzuela tear, with clipping of area. Continue Protonix Chronic back pain. Added hydrocodone nightly as needed pain. I discussed with her this will not be continued at discharge. Full code At this point I will sign off from the case. Call with any questions. Attestations Medical Necessity Statement*: As per psychiatry Coding Level of Care Code Acute Key Account Director for [facility] Diagnoses Suicidal behavior R46.89 Anemia D64.9 Major depression, recurrent F33.9 Diabetes mellitus E11.9 MONTANO (nonalcoholic steatohepatitis) K75.81 Borderline personality disorder F60.3
[2019-10-05 11:04] LABS: Glucose Point of Care 456 mg/dL (70-110)
[2019-10-05 11:04] LABS: Glucose Point of Care 493 mg/dL (70-110)
[2019-10-05] MEDS: haloperidol 5 mg Tablet PO (11:09)
[2019-10-05] MEDS: insulin glargine 100 units/1 mL 50 UNIT SUBCUT (11:39)
--- NOTE | 2019-10-05 12:46 | P.PN_ITS ---
Subjective NPU Subjective: Interval history: Kay presented today reporting that she woke up this morning she was feeling angry and aggressive feeling conflicted irritable. She discussed different medications that has helped her in the past including Seroquel which she reports have put much weight on her. We discussed the currently Thorazine is more or less acting as the Seroquel would we discussed different options that we did would be less likely to put on weight including Geodon and she understood and agreed to proceed as is documented in his note. We discussed the fact that we would likely cut down on the Thorazine as we add Geodon to her regimen and she understood and agreed to proceed as documented in this note. We continued to discuss how recent her loss of her son has been and how unlikely would be for her to have any significant level resolution already. Mental Status Exam MSE Comments: This is an obese, white female, with adequate dress, and limited grooming and eye contact. No abnormal movements, except for mild psychomotor retardation and walking with significant ataxia . Cooperative with exam in no acute distress. Speech was slightly decreased rate and volume. Mood described as depressed; affect congruent. Thought process, organized. Thought content: patient endorsed suicidal but denied homicidal ideation, there were no delusions reported or noted, patient denied any auditory or visual hallucinations. Attention and concentration, appeared intact and memory was unreliable but none were formally tested. She is alert and oriented times three. Insight and judg ment are impaired. Impulse control is limited. Vitals/I&O/Wt Last Vital Signs Temp 99.1 F 10/05/19 20:31 Pulse 116 H 10/05/19 20:31 Resp 18 10/05/19 20:31 BP 143/86 10/05/19 20:31 Pulse Ox 96 10/05/19 20:31 Weight last 48 hrs Weight 94.801 kg Data NPU : 10/05/19 04:33 10/03/19 03:12 A&P Additional A&P Information (1) Suicidal ideation: This is a 54-year-old white female with a long history of mental health issues like depression and anxiety and borderline personality disorder who had the recent loss of her son through reported suicide but who presents fairly unemotional and seeming driven by interest then getting different medications at times more so than grief or loss. 1. Continue current medication. Started Geodon 40 mg p.o. twice daily and reduce Thorazine to 50 mg p.o. nightly. Will consider discontinuing the Thorazine altogether tomorrow. 2. Encourage individual, group and milieu therapy. 3. Continue to 15-minute checks for safety. 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 Nigel luo length of stay 2-4 days. Coding Level of Care Code Acute Bar Machine Operator for Rober Arellano
[2019-10-05 14:00] VITALS: BP 127/72; PULSE 110; RESP 19; TEMP 36.3
[2019-10-05 17:43] LABS: Glucose Point of Care 399 mg/dL (70-110)
[2019-10-05 17:43] LABS: Glucose Point of Care 412 mg/dL (70-110)
[2019-10-05 20:30] LABS: Glucose Point of Care 353 mg/dL (70-110)
[2019-10-05 20:31] VITALS: BP 143/86; PULSE 116; RESP 18; TEMP 37.3; O2SAT 96
[2019-10-05] MEDS: ropinirole 2 mg Tablet PO (20:43)
[2019-10-05] MEDS: prazosin 1 mg Capsule 3 MG PO (20:44)
[2019-10-05] MEDS: doxepin 50 mg Capsule 100 MG PO (20:44)
[2019-10-05] MEDS: trazodone 50 mg Tablet PO (20:44)
[2019-10-05] MEDS: HYDROcodone-acetaminophen 5-325 mg Tablet 1 TAB PO (20:44)
--- NOTE | 2019-10-05 21:11 | PC.NURSE ---
pt given scheduled thorazine, doxepin, minipress, requip and 14 units of s/s insulin, as well as prn norco, trazodone and vistaril per request.
[2019-10-06] MEDS: fixodent 39 gm Tube 1 APPLIC DENTAL (03:08)
[2019-10-06] MEDS: haloperidol 5 mg Tablet PO (03:08)
[2019-10-06 06:00] VITALS: BP 156/96; PULSE 113; RESP 16; TEMP 36.5; O2SAT 96
[2019-10-06] MEDS: ziprasidone hcl 40 mg Capsule PO (06:28)
[2019-10-06 07:21] LABS: Glucose Point of Care 250 mg/dL (70-110)
[2019-10-06] MEDS: nicotine 14 mg Patch 1 PATCH TRANSDERMA (07:56)
[2019-10-06] MEDS: insulin glargine 100 units/1 mL 50 UNIT SUBCUT (07:58)
[2019-10-06] MEDS: pantoprazole DR 40 mg Tablet PO (07:59)
[2019-10-06] MEDS: HYDROcodone-acetaminophen 5-325 mg Tablet 1 TAB PO (07:59)
[2019-10-06] MEDS: desvenlafaxine 50 mg Tablet 100 MG PO (07:59)
[2019-10-06] MEDS: potassium chloride ER 10 mEq Tablet PO (07:59)
[2019-10-06] MEDS: TRAMadol 50 mg Tablet PO (10:37)
[2019-10-06] MEDS: hyDROXYzine 25 mg Capsule 50 MG PO (10:38)
--- NOTE | 2019-10-06 10:38 | PC.NURSE ---
Addendum entered by Ashley Huang LPN 10/06/19 11:53: prn med effective no further c/o anxiety Original Note: PRN VISTARIL 50 MG GIVEN PO PER PT C/O STATED ANXIETY. WILL CONT TO MONITOR
[2019-10-06 11:58] LABS: Glucose Point of Care 360 mg/dL (70-110)
[2019-10-06 13:08] LABS: Glucose Point of Care 384 mg/dL (70-110)
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
[2019-10-06 13:50] VITALS: BP 121/81; PULSE 103; RESP 18; TEMP 37.1; O2SAT 98
[2019-10-06 14:19] VITALS: BP 121/81; PULSE 103; RESP 18; TEMP 37.1; O2SAT 98
== END 2019-10-06 14:59 | disposition home or self-care (01) | DRG 885 ==
LOC: ER 22:01 → MEDSURG 22:14 → NP 10-03 15:45
PROVIDERS: Internal Medicine; Surgery; Admitting Provider Internal Medicine; Emergency Provider Physician Assistant; PCP Internal Medicine; Visit Provider Psychiatry & Neurology Psychiatry
PROC: 0DJ08ZZ Inspection of Upper Intestinal Tract, Via Natural or Artificial Opening Endoscopic (ICD-10-PCS; CPT 43235; principal; 2019-10-03 08:15)
DX: F33.8 Other recurrent depressive disorders (principal); R45.851 Suicidal ideations; K92.2 Gastrointestinal hemorrhage, unspecified; F60.3 Borderline personality disorder; K75.81 Nonalcoholic steatohepatitis (NASH); E11.9 Type 2 diabetes mellitus without complications; D64.9 Anemia, unspecified; Z81.8 Family history of other mental and behavioral disorders; Z91.5 Personal history of self-harm; Z79.4 Long term (current) use of insulin; G47.09 Other insomnia; F17.210 Nicotine dependence, cigarettes, uncomplicated
CPT/HCPCS: 12345; 36415; 36416; 43235; 71045; 80048; 80053; 80306; 80307; 82728; 82962; 83036; 83540; 83550; 84484; 85014; 85018; 85025; 85610; 85730; 93005; 96372; 96375; 99284; A9270; C9113; J1200; J1756; J1815; J2001; J2270; J2405; J2704; J3490; J7030; Q0161

== ENCOUNTER 2019-10-17 15:36 | Emergency (ER) | payer MEDICARE, MEDICAID, SELFPAY ==
[2019-10-17 15:42] VITALS: BP 153/83; PULSE 109; RESP 15; TEMP 37.4; O2SAT 97; BMI 40.4
--- NOTE | 2019-10-17 15:42 | ECG_ITS ---
"[facility] Test Date: 2019-10-17 Pat Name: Kay Calles Department: Room: Gender: Female Services Clerk: : [id number] Requested By: Carmela Haro Order Number: [id number] Parker MD: Cassie Castillo M.D. Measurements Intervals [place] Rate: 109 P: 61 TN: 160 QRS: 35 QRSD: 81 T: 47 QT: 341 QTc: 460 Interpretive Statements SINUS TACHYCARDIA ABNORMAL RHYTHM ECG Compared to ECG 10/02/2019 19:25:17 No significant changes Electronically Signed On 10-17-2019 19:05:06 CDT by Cassie Castillo M.D. [id number]
[2019-10-17 15:50] LABS: Glucose Point of Care 315 mg/dL (70-110)
--- NOTE | 2019-10-17 15:52 | ED_ITS ---
HPI - Chest Pain General: Chief Complaint: Chest Pain Stated Complaint: CHEST PAIN/ ABNORMAL LABS Time Seen by Provider: 10/17/19 15:38 Source: patient and EMS Mode of arrival: EMS Limitations: no limitations History of Present Illness: HPI narrative: Kay is a 54-year-old female that states she has had chest pain abdominal pain over the last 2 days. She has chronic abdominal pain from esophagitis. Patient states that her pain is sharp in nature and feels like it typically does. She denies any shortness of breath or nausea. Denies any fevers. MD complaint: chest pain Associated symptoms: Deny abdominal pain, dyspnea, fever(s), nausea or vomiting Review of Systems Const: Denies: fever(s), chills, body aches or change in appetite Eyes: Denies: blurry vision or eye discomfort ENMT: Denies: throat pain or dental pain Card: Reports: chest pain Resp: Denies: dyspnea GI: Denies: abdominal pain, nausea, vomiting or diarrhea : Denies: dysuria Musc: Denies: neck pain or back pain Skin/Breast: Denies: rash Neuro: Denies: headache(s) Psych: Denies: depression Girma/Lymph: Denies: easy bruising All/Imm: Denies: urticaria PFSH ED PFSH: Medical History Bilateral primary osteoarthritis of hip Chronic back pain Congestive heart failure Diabetes mellitus H/O Belkys-Valenzuela syndrome MONTANO (nonalcoholic steatohepatitis) Suicidal behavior Surgical History H/O cervical spine surgery H/O colonoscopy History of esophagogastroduodenoscopy Social History Smoking and tobacco status: current every day smoker cigarettes Packs smoked per day: 0.5 Alcohol intake: never Substance/Drug Use: never Physical Exam Const: COMMON NORMALS: no acute distress, patient oriented x3 and healthy appearing HENMT: COMMON NORMALS: normocephalic and atraumatic HEAD & SCALP: normocephalic and atraumatic Eye: COMMON NORMALS: Equal, round and reactive pupils present and EOMs intact bilaterally PUPIL: Yes Equal, round and reactive pupils present Neck/C-Spine: COMMON NORMALS: full ROM and supple Chest: COMMONS NORMALS: normal inspection of the chest and normal palpation of entire chest wall Resp: COMMON NORMALS: normal respiratory effort, No retractions, No use of accessory muscles and clear to auscultation bilaterally AUSCULTATION: clear to auscultation bilaterally Cardio: COMMON NORMALS: regular rate, regular rhythm and No murmurs present (Cardio) RATE: regular rate RHYTHM: regular rhythm GI: COMMON NORMALS: Normal to inspection, nondistended, normoactive bowel sounds present, Soft to palpation, non-tender and no masses PALPATION: Yes Soft to palpation Extremity: COMMON NORMALS: normal to inspection and full ROM Neuro: COMMON NORMALS: patient oriented x3, moves all extremities and no focal motor deficits Psych: COMMON NORMALS: mental status grossly normal, Normal thought process present and cooperative THOUGHT PROCESS: Normal thought process present Skin: COMMON NORMALS: no rashes or lesions noted and no wounds GENERAL SKIN EXAM: no rashes or lesions noted Course Vital Signs: Vital signs: Vital Signs Temperature 99.3 F 10/17/19 15:42 Pulse Rate 99 10/17/19 18:00 Respiratory Rate 16 10/17/19 18:00 Blood Pressure 125/71 10/17/19 18:00 Pulse Oximetry 95 10/17/19 18:00 MDM - Chest Pain MDM Narrative: Medical decision making narrative: 54-year-old presents here with chest pain that is atypical in nature. Patient's initial and repeat troponins are normal. Patient CT scan as normal here except for esophagitis that could be causing her pain. Patient is stable for discharge and is to follow-up with primary care doctor in 3 to 5 days and return if worsening Lab Data: Labs: Lab Results 10/17/19 10/17/19 10/17/19 Range/Units 15:47 16:08 16:08 WBC 5.8 (4.0-10.0) 10^3/ uL RBC 3.97 L (4.1-5.3) 10^6/u L Hgb 9.2 L (11.5-15.3) g/dL Hct 29.6 L (37.0-47.0) % MCV 74.6 L (81-99) fL MCH 23.2 L (28.0-34.0) pg MCHC 31.1 (30.0-36.0) g/dL RDW 14.8 (12.1-15.1) % Plt Count 133 (130-400) 10^3/c mm MPV 9.6 (7.4-10.4) fL Neut % (Auto) 73.2 % Lymph % (Auto) 18.5 % [place] % (Auto) 6.1 % Eos % (Auto) 1.7 % Baso % (Auto) 0.3 % Neut # (Auto) 4.23 (1.8-7.7) 10^3/u L Lymph # (Auto) 1.1 (0.8-4.8) 10^3/u L [place] # (Auto) 0.4 (0.2-0.9) 10^3/u L Eos # (Auto) 0.1 (0.0-0.8) 10^3/u L Baso # (Auto) 0.0 (0.0-0.1) 10^3/u L Nucleated RBC % (a uto) 0 % Nucleated RBCs # 0.0 /100WBC Sodium 135 L (136-145) mmol/L Potassium 3.9 (3.5-5.1) mmol/L Chloride 101 (98-107) mmol/L Carbon Dioxide 23 (22-29) mmol/L Anion Gap 14.9 (5-19) BUN 9 (6-20) mg/dL Creatinine 0.6 (0.5-0.9) mg/dL GFR Calculation 105.0 (90-130) mL/min Glucose 288 H (65-115) mg/dL POC Glucose 315 (70-110) mg/dL Calculated Osmolal ity 287 (285-295) mOsm/k g Calcium 8.8 (8.5-10.5) mg/dL Total Bilirubin 0.6 (0.15-1.2) mg/dL AST 28 (0-32) U/L ALT 22 (0-33) U/L Alkaline Phosphata se 148 H (35-105) IU/L Troponin T Baselin e (0-10) ng/L Troponin T 120 Min [place] (0-10) ng/L Delta Troponin T (0-10) ABS# Total Protein 6.5 L (6.6-8.7) g/dL Albumin 3.7 (3.5-5.2) g/dL Globulin 2.8 (1.3-4.6) g/dL Lipase 72 H (13-60) U/L 10/17/19 10/17/19 Range/Units 16:08 17:55 WBC (4.0-10.0) 10^3/ uL RBC (4.1-5.3) 10^6/u L Hgb (11.5-15.3) g/dL Hct (37.0-47.0) % MCV (81-99) fL MCH (28.0-34.0) pg MCHC (30.0-36.0) g/dL RDW (12.1-15.1) % Plt Count (130-400) 10^3/c mm MPV (7.4-10.4) fL Neut % (Auto) % Lymph % (Auto) % [place] % (Auto) % Eos % (Auto) % Baso % (Auto) % Neut # (Auto) (1.8-7.7) 10^3/u L Lymph # (Auto) (0.8-4.8) 10^3/u L [place] # (Auto) (0.2-0.9) 10^3/u L Eos # (Auto) (0.0-0.8) 10^3/u L Baso # (Auto) (0.0-0.1) 10^3/u L Nucleated RBC % (a uto) % Nucleated RBCs # /100WBC Sodium (136-145) mmol/L Potassium (3.5-5.1) mmol/L Chloride (98-107) mmol/L Carbon Dioxide (22-29) mmol/L Anion Gap (5-19) BUN (6-20) mg/dL Creatinine (0.5-0.9) mg/dL GFR Calculation (90-130) mL/min Glucose (65-115) mg/dL POC Glucose (70-110) mg/dL Calculated Osmolal ity (285-295) mOsm/k g Calcium (8.5-10.5) mg/dL Total Bilirubin (0.15-1.2) mg/dL AST (0-32) U/L ALT (0-33) U/L Alkaline Phosphata se (35-105) IU/L Troponin T Baselin e 6 (0-10) ng/L Troponin T 120 Min [place] 6.00 (0-10) ng/L Delta Troponin T 0 (0-10) ABS# Total Protein (6.6-8.7) g/dL Albumin (3.5-5.2) g/dL Globulin (1.3-4.6) g/dL Lipase (13-60) U/L Imaging Data^: CXR: Attestation: I personally reviewed and interpreted this imaging study as follows: My impression: no acute abnormality CT Chest: Attestation: I personally reviewed and interpreted this imaging study as follows: Radiologist's impression: [place] [address] CT Scan Report Signed Patient: Kay Calles Unit #: [id number] : 1965 Age/Sex: 54 / F ADM Date: 10/17/19 Loc: ER Room/Bed: Attending Dr: Ordering Provider/Ordering MD: Carmela Haro MD Date of Service: 10/17/19 Procedure(s): CT angio chest PE protcl [id number] Accession Number(s): [id number] Report Number: [id number] PROCEDURE INFORMATION: Exam: CT Angiography Chest With Contrast Exam date and time: 10/17/2019 6:27 PM Age: 54 years old Clinical indication: Chest pain; Patient HX: C/O substernal cp since last night TECHNIQUE: Imaging protocol: Computed tomographic angiography of the chest with intravenous contrast. 3D rendering: MIP and/or 3D reconstructed images were created by the technologist. Radiation optimization: All CT scans at this facility use at least one of these dose optimization techniques: automated exposure control; mA and/or kV adjustment per patient size (includes targeted exams where dose is matched to clinical indication); or iterative reconstruction. Contrast material: OMNI 350; Contrast volume: 95 ml; Contrast route: INTRAVENOUS (IV); COMPARISON: CR XR chest 1V portable [id number] 10/17/2019 5:02 PM RADIATION DOSE METRICS: Total DLP (mGy-cm): 528.2 FINDINGS: There are degenerative changes of the spine. There are postop changes of the lower cervical spine. There is some mild patchy ground-glass opacities. These are best seen within the left lower lobe and right perihilar region. The findings are nonspecific. They can be seen with viral pneumonia. There is no focal consolidation. There is no pleural effusion. There is no pneumothorax. There are no suspicious pulmonary nodules. The central airways are normal in caliber. The thyroid gland is unremarkable. There is no axillary adenopathy. There is no mediastinal adenopathy. There is no hilar adenopathy. Interrogation of the pulmonary arteries in multiple planes shows no evidence for pulmonary embolism. The aorta is normal in caliber with no evidence for aneurysm or dissection. The heart is normal in size. There is thickening of the wall of the distal esophagus. This may be due to reflux or esophagitis. Please correlate clinically. There is prominence of the spleen. CT/CT angio chest PE protcl [id number] IMPRESSION: 1. No evidence for pulmonary embolism. 2. Mild ground-glass opacities within the left lower lobe and right perihilar region. Findings are nonspecific. They can be seen with viral pneumonia. Is no consolidation. 3. Thickening of the wall of the distal esophagus. This can be seen with esophagitis or is reflux. 4. Prominence of the spleen. EKG Data^: EKG 1: Attestation: I personally reviewed and interpreted this EKG as follows: EKG interpretation date: 10/17/19 EKG interpretation time: 15:51 Interpretation: sinus tach hr [address] or t wave abnormalities qrs 81 qtc 405 EKG 2: Attestation: I personally reviewed and interpreted this EKG as follows: EKG interpretation date: 10/17/19 EKG interpretation time: 18:11 Interpretation: nsr hr [address] or t wave abnormalities qrs 98 qtc 423 Discharge Plan Discharge Patient Disposition: Home, Self-Care Clinical Impression: Chest pain Qualifiers: Chest pain type: unspecified Qualified Code(s): R07.9 - Chest pain, unspecified Condition: Stable Prescriptions: No Action nitroglycerin [Nitrostat] 0.4 mg tablet, sublingual 0.4 mg SUBLINGUAL PRN PRN (Reason: Chest Pain) RF: 0 insulin lispro [Humalog KwikPen Insulin] 100 unit/mL Insulin Pen See Rx Instructions .ROUTE .COMPLEX RF: 0 pantoprazole [Protonix] 40 mg Tablet,Delayed Release (Dr/Ec) 40 mg PO DAILY RF: 0 haloperidol 5 mg Tablet 5 mg PO BID PRN (Reason: Agitation) 30 Days Qty: 60 RF: 0 trazodone 50 mg Tablet 50 mg PO BEDTIME PRN (Reason: Sleep) 30 Days Qty: 30 RF: 1 ziprasidone HCl 40 mg Capsule 40 mg PO 0700,1700 30 Days Qty: 60 RF: 1 ondansetron HCl [Zofran] 8 mg Tablet 8 mg PO Q12H PRN (Reason: NAUSEA/VOMITING) RF: 0 doxepin 50 mg Capsule 100 mg PO BEDTIME 30 Days Qty: 60 RF: 2 prazosin 1 mg Capsule 3 mg PO BEDTIME 30 Days Qty: 90 RF: 2 clonidine HCl 0.1 mg Tablet 0.1 mg PO BEDTIME 30 Days Qty: 30 RF: 2 ropinirole 2 mg tablet 2 mg PO BEDTIME 30 Days Qty: 30 RF: 2 desvenlafaxine succinate [Pristiq] 100 mg Tablet Extended Release 24 Hr 100 mg PO DAILY 30 Days Qty: 30 RF: 2 Tresiba FlexTouch U-200 200 unit/mL (3 mL) Insulin Pen 60 unit SUBCUT BEDTIME Qty: 0 RF: 0 chlorpromazine 50 mg Tablet 50 mg PO BID RF: 0 Discharge Orders: Discharge Order (Routine); Ordered 10/17/19 Ordered By: Carmela Haro Referrals: Eber Garsia DO [Primary Care Provider] - 1-3 days Discharge Activity: Resume usual activity Patient Instructions: Chest Pain (ED) Coding Level of Care Code ED O[facility] Digger for g Fwd Exam Comprehensive
[2019-10-17] MEDS: morphine 4 mg/mL SDV 1 mL IVP (16:01)
[2019-10-17] MEDS: ondansetron 2 mg/ML SDV 2 mL 4 MG IVP (16:01)
[2019-10-17 16:04] VITALS: BP 153/83; PULSE 103; O2SAT 95
[2019-10-17 16:17] LABS: Basophils % 0.3 %; Eosinophils # 0.1 10^3/uL (0.0-0.8); Eosinophils % 1.7 %; Hematocrit 29.6 % (37.0-47.0); Hemoglobin 9.2 g/dL (11.5-15.3); Lymphocytes # 1.1 10^3/uL (0.8-4.8); Lymphocytes % 18.5 %; Mean Corpuscular HGB Conc 31.1 g/dL (30.0-36.0); Mean Corpuscular Hemoglobin 23.2 pg (28.0-34.0); Mean Corpuscular Volume 74.6 fL (81-99); Mean Platelet Volume 9.6 fL (7.4-10.4); Monocytes # 0.4 10^3/uL (0.2-0.9); Monocytes % 6.1 %; Neutrophils # 4.23 10^3/uL (1.8-7.7); Neutrophils % 73.2 %; Nucleated Red Blood Cells % 0 %; Platelet Count 133 10^3/cmm (130-400); Red Blood Count 3.97 10^6/uL (4.1-5.3); Red Cell Distribution Width 14.8 % (12.1-15.1); White Blood Count 5.8 10^3/uL (4.0-10.0)
[2019-10-17] MEDS: diphenhydrAMINE 50 mg/mL SDV 1mL IVP (16:31)
[2019-10-17] MEDS: metoclopramide 5 mg/mL SDV 2 mL 10 MG IVP (16:31)
[2019-10-17 16:39] LABS: Alanine Aminotransferase 22 U/L (0-33); Albumin Level 3.7 g/dL (3.5-5.2); Alkaline Phosphatase 148 IU/L (35-105); Anion Gap 14.9 (5-19); Aspartate Amino Transferase 28 U/L (0-32); Blood Urea Nitrogen 9 mg/dL (6-20); Calcium 8.8 mg/dL (8.5-10.5); Carbon Dioxide 23 mmol/L (22-29); Chloride 101 mmol/L (98-107); Globulin 2.8 g/dL (1.3-4.6); Glucose 288 mg/dL (65-115); Lipase 72 U/L (13-60); Osmolality Calculated 287 mOsm/kg (285-295); Potassium 3.9 mmol/L (3.5-5.1); Sodium 135 mmol/L (136-145); Total Bilirubin 0.6 mg/dL (0.15-1.2); Total Protein 6.5 g/dL (6.6-8.7)
[2019-10-17 16:41] LABS: Troponin(5th) Baseline 6 ng/L (0-10)
--- NOTE | 2019-10-17 17:01 | XRR_ITS ---
PROCEDURE INFORMATION: Exam: XR Chest, 1 View Exam date and time: 10/17/2019 5:11 PM Age: 54 years old Clinical indication: Chest pain; Type not specified; Additional info: Cp TECHNIQUE: Imaging protocol: XR of the chest Views: 1 view. COMPARISON: CR XR chest 1V portable [id number] 10/02/2019 7:21 PM FINDINGS: Lungs: Unremarkable. No consolidation. Pleural space: Unremarkable. No pleural effusion. No pneumothorax. Heart/Mediastinum: Unremarkable. No cardiomegaly. Bones/joints: Postoperative changes are seen within the cervical spine. XR/XR chest 1V portable [id number] IMPRESSION: Stable chest radiograph compared with 10/02/2019.
--- NOTE | 2019-10-17 17:35 | CTR_ITS ---
PROCEDURE INFORMATION: Exam: CT Angiography Chest With Contrast Exam date and time: 10/17/2019 6:27 PM Age: 54 years old Clinical indication: Chest pain; Patient HX: C/O substernal cp since last night TECHNIQUE: Imaging protocol: Computed tomographic angiography of the chest with intravenous contrast. 3D rendering: MIP and/or 3D reconstructed images were created by the technologist. Radiation optimization: All CT scans at this facility use at least one of these dose optimization techniques: automated exposure control; mA and/or kV adjustment per patient size (includes targeted exams where dose is matched to clinical indication); or iterative reconstruction. Contrast material: OMNI 350; Contrast volume: 95 ml; Contrast route: INTRAVENOUS (IV); COMPARISON: CR XR chest 1V portable [id number] 10/17/2019 5:02 PM RADIATION DOSE METRICS: Total DLP (mGy-cm): 528.2 FINDINGS: There are degenerative changes of the spine. There are postop changes of the lower cervical spine. There is some mild patchy ground-glass opacities. These are best seen within the left lower lobe and right perihilar region. The findings are nonspecific. They can be seen with viral pneumonia. There is no focal consolidation. There is no pleural effusion. There is no pneumothorax. There are no suspicious pulmonary nodules. The central airways are normal in caliber. The thyroid gland is unremarkable. There is no axillary adenopathy. There is no mediastinal adenopathy. There is no hilar adenopathy. Interrogation of the pulmonary arteries in multiple planes shows no evidence for pulmonary embolism. The aorta is normal in caliber with no evidence for aneurysm or dissection. The heart is normal in size. There is thickening of the wall of the distal esophagus. This may be due to reflux or esophagitis. Please correlate clinically. There is prominence of the spleen. CT/CT angio chest PE protcl [id number] IMPRESSION: 1. No evidence for pulmonary embolism. 2. Mild ground-glass opacities within the left lower lobe and right perihilar region. Findings are nonspecific. They can be seen with viral pneumonia. Is no consolidation. 3. Thickening of the wall of the distal esophagus. This can be seen with esophagitis or is reflux. 4. Prominence of the spleen. Radiation Dose CTDIVOL = (mGy): DLP = 528.2 (mGy-cm)
--- NOTE | 2019-10-17 17:42 | ECG_ITS ---
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 Measurements Intervals [place] Rate: 98 P: 49 [place]: 159 QRS: 21 QRSD: 98 T: 41 QT: 368 QTc: 470 Interpretive Statements SINUS RHYTHM Compared to ECG 10/17/2019 15:51:30 Sinus tachycardia no longer present Electronically Signed On 10-17-2019 19:06:52 CDT by Cassie Castillo M.D. [email or web address]
[2019-10-17] MEDS: HYDROmorphone 1 mg/mL INJ 1 mL 0.5 MG IVP (17:59)
[2019-10-17 18:00] VITALS: BP 125/71; PULSE 99; RESP 16; O2SAT 95
--- NOTE | 2019-10-17 18:33 | PC.NURSE ---
pt to CT by stretcher with tech
[2019-10-17 18:38] LABS: Troponin 5 2HR Delta 0 ABS# (0-10)
[2019-10-17] MEDS: iohexol 350 mg/mL 100 mL Btl IV (18:38)
[2019-10-17 19:35] VITALS: BP 128/91; PULSE 98; RESP 18; O2SAT 98
== END 2019-10-17 19:37 | disposition home or self-care (01) ==
PROVIDERS: Emergency Provider Emergency Medicine; PCP Internal Medicine
DX: R07.9 Chest pain, unspecified (principal); Z79.4 Long term (current) use of insulin; I50.9 Heart failure, unspecified; E11.9 Type 2 diabetes mellitus without complications; F17.210 Nicotine dependence, cigarettes, uncomplicated
CPT/HCPCS: 12345; 36415; 36416; 71045; 71275; 80053; 82962; 83690; 84484; 85025; 93005; 96374; 96375; 99283; 99284; J1170; J1200; J2270; J2405; J2765; Q9967

== ENCOUNTER 2019-10-24 10:59 | Outpatient (RCR) | payer MEDICARE, MEDICAID, SELFPAY ==
[2019-10-24] MEDS: ferric carboxy (IVPB) 750 MG in sodium chloride 0.9% (100 ml) 100 ML 345 MG IV (11:45)
[2019-10-24 11:51] VITALS: BP 119/80; PULSE 98; RESP 20; TEMP 37.1; O2SAT 97; BMI 38.5
== END 2019-11-07 23:59 | disposition home or self-care (01) ==
LOC: GILAB 10:59
PROVIDERS: PCP Internal Medicine; Visit Provider Internal Medicine
DX: D50.9 Iron deficiency anemia, unspecified (principal)
CPT/HCPCS: 96365; J1439

== ENCOUNTER 2019-10-26 18:23 | Emergency (ER) | payer MEDICARE, MEDICAID, SELFPAY ==
[2019-10-26 18:24] VITALS: BMI 38.3
--- NOTE | 2019-10-26 18:27 | XRR_ITS ---
PROCEDURE INFORMATION: Exam: XR Chest, 1 View Exam date and time: 10/26/2019 6:29 PM Age: 54 years old Clinical indication: Cough and fever TECHNIQUE: Imaging protocol: XR of the chest Views: 1 view. COMPARISON: CR XR chest 1V portable [id number] 10/17/2019 5:02 PM FINDINGS: There is mild infiltrate within the left lung base. The right lung is clear. There is no pleural effusion or pneumothorax. The heart size is normal. XR/XR chest 1V portable [id number] IMPRESSION: Mild infiltrate within the left lung base.
[2019-10-26 18:29] VITALS: BP 121/58; PULSE 117; RESP 18; TEMP 37.8; O2SAT 97
--- NOTE | 2019-10-26 18:32 | W.ED.BACK ---
HPI - Back Pain/Injury General: Chief Complaint: Back Pain/Injury Stated Complaint: LYNCH; LOW BACK PAIN Time Seen by Provider: 10/26/19 18:27 Source: patient and EMS Mode of arrival: EMS Limitations: no limitations History of Present Illness: HPI Narrative: 54-year-old female has a history of chronic migraines and back pain. States she has had right lower back pain started last night felt a back spasms. States she started having a migraine today she rates a 7 out of 10. States her headache is worse with bright lights. She had a low-grade fever of 100. She denies any cough. She denies any abdominal pain. She has no neck stiffness or neck pain. Associated symptoms: Deny abdominal pain, chills, dysuria, fever(s), nausea or vomiting Review of Systems Const: Denies: fever(s), chills, body aches or change in appetite Eyes: Denies: blurry vision or eye discomfort ENMT: Denies: throat pain or dental pain Card: Denies: chest pain Resp: Denies: dyspnea GI: Denies: abdominal pain, nausea, vomiting or diarrhea : Denies: dysuria Musc: Reports: back pain Skin/Breast: Denies: rash Neuro: Reports: headache(s) Psych: Denies: depression Girma/Lymph: Denies: easy bruising All/Imm: Denies: urticaria PFSH ED PFSH: Medical History (Updated 10/26/19 @ 20:10 by Carmela Haro MD) Bilateral primary osteoarthritis of hip Chronic back pain Congestive heart failure Diabetes mellitus H/O Belkys-Valenzuela syndrome MONTANO (nonalcoholic steatohepatitis) Suicidal behavior Surgical History H/O cervical spine surgery H/O colonoscopy History of esophagogastroduodenoscopy Social History Smoking and tobacco status: current every day smoker cigarettes Packs smoked per day: 0.5 Alcohol intake: never Physical Exam Const: COMMON NORMALS: no acute distress, patient oriented x3 and healthy appearing HENMT: COMMON NORMALS: normocephalic and atraumatic HEAD & SCALP: normocephalic and atraumatic Eye: COMMON NORMALS: Equal, round and reactive pupils present and EOMs intact bilaterally PUPIL: Yes Equal, round and reactive pupils present Neck/C-Spine: COMMON NORMALS: full ROM and supple Chest: COMMONS NORMALS: normal inspection of the chest and normal palpation of entire chest wall Resp: COMMON NORMALS: normal respiratory effort, No retractions, No use of accessory muscles and clear to auscultation bilaterally AUSCULTATION: clear to auscultation bilaterally Cardio: COMMON NORMALS: regular rate, regular rhythm and No murmurs present (Cardio) RATE: regular rate RHYTHM: regular rhythm GI: COMMON NORMALS: Normal to inspection, nondistended, normoactive bowel sounds present, Soft to palpation, non-tender and no masses PALPATION: Yes Soft to palpation Back/Pelvis: OTHER: Point tender in right lower back Extremity: COMMON NORMALS: normal to inspection and full ROM Neuro: COMMON NORMALS: patient oriented x3, moves all extremities and no focal motor deficits Psych: COMMON NORMALS: mental status grossly normal, Normal thought process present and cooperative THOUGHT PROCESS: Normal thought process present Skin: COMMON NORMALS: no rashes or lesions noted and no wounds GENERAL SKIN EXAM: no rashes or lesions noted Course Vital Signs: Vital signs: Vital Signs Temperature 100.1 F H 10/26/19 18:29 Pulse Rate 11 L 10/26/19 20:29 Respiratory Rate 16 10/26/19 20:29 Blood Pressure 135/77 10/26/19 20:29 Pulse Oximetry 97 10/26/19 20:29 MDM - Back Pain/Injury MDM Narrative: Medical decision making narrative: Patient presents here with low back pain that is chronic in nature along with a chronic migraine. She does have a low-grade fever but no signs of infection. Showed no signs of epidural abscess. Patient's lab works normal besides her hyperglycemia. She states that her monitor ran out of batteries 3 days ago and she has not replaced it so she has not been checking her blood sugar. Her blood sugars improving here and she is stable for discharge she is to return if worsening. Lab Data: Labs: Lab Results 10/26/19 10/26/19 10/26/19 Range/Units 18:30 18:30 18:45 WBC 4.8 (4.0-10.0) 10^3/ uL RBC 3.55 L (4.1-5.3) 10^6/u L Hgb 8.1 L (11.5-15.3) g/dL Hct 26.6 L (37.0-47.0) % MCV 74.9 L (81-99) fL MCH 22.8 L (28.0-34.0) pg MCHC 30.5 (30.0-36.0) g/dL RDW 15.0 (12.1-15.1) % Plt Count 94 L (130-400) 10^3/c mm MPV 10.3 (7.4-10.4) fL Neut % (Auto) 76.4 % Lymph % (Auto) 11.4 % [place] % (Auto) 6.8 % Eos % (Auto) 1.7 % Baso % (Auto) 0.4 % Neut # (Auto) 3.70 (1.8-7.7) 10^3/u L Lymph # (Auto) 0.6 L (0.8-4.8) 10^3/u L [place] # (Auto) 0.3 (0.2-0.9) 10^3/u L Eos # (Auto) 0.1 (0.0-0.8) 10^3/u L Baso # (Auto) 0.0 (0.0-0.1) 10^3/u L Nucleated RBC % (a uto) 0.4 % Nucleated RBCs # 0.0 /100WBC Sodium 130 L (136-145) mmol/L Potassium 3.8 (3.5-5.1) mmol/L Chloride 96 L (98-107) mmol/L Carbon Dioxide 22 (22-29) mmol/L Anion Gap 15.8 (5-19) BUN 5 L (6-20) mg/dL Creatinine 0.5 (0.5-0.9) mg/dL GFR Calculation 129.6 (90-130) mL/min Glucose 614 H* (65-115) mg/dL POC Glucose (70-110) mg/dL Calculated Osmolal ity 294 (285-295) mOsm/k g Calcium 8.3 L (8.5-10.5) mg/dL Total Bilirubin 0.4 (0.15-1.2) mg/dL AST 20 (0-32) U/L ALT 18 (0-33) U/L Alkaline Phosphata se 175 H (35-105) IU/L Total Protein 6.2 L (6.6-8.7) g/dL Albumin 3.5 (3.5-5.2) g/dL Globulin 2.7 (1.3-4.6) g/dL Urine Color Yellow (Yellow) Urine Appearance Clear (CLEAR) Urine pH 7 (5-7) Ur Specific Gravit y 1.005 (1.005-1.030) Urine Protein Neg (Negative) Urine Glucose (UA) 4+ H (Normal) Urine Ketones Negative (Negative) Urine Blood Neg (Negative) Urine Nitrate Negative (Negative) Urine Bilirubin Neg (NEGATIVE) Urine Urobilinogen Norm (Negative) mg/dL Ur Leukocyte Colleen ase Negative (Negative) 10/26/19 Range/Units 19:59 WBC (4.0-10.0) 10^3/ uL RBC (4.1-5.3) 10^6/u L Hgb (11.5-15.3) g/dL Hct (37.0-47.0) % MCV (81-99) fL MCH (28.0-34.0) pg MCHC (30.0-36.0) g/dL RDW (12.1-15.1) % Plt Count (130-400) 10^3/c mm MPV (7.4-10.4) fL Neut % (Auto) % Lymph % (Auto) % [place] % (Auto) % Eos % (Auto) % Baso % (Auto) % Neut # (Auto) (1.8-7.7) 10^3/u L Lymph # (Auto) (0.8-4.8) 10^3/u L [place] # (Auto) (0.2-0.9) 10^3/u L Eos # (Auto) (0.0-0.8) 10^3/u L Baso # (Auto) (0.0-0.1) 10^3/u L Nucleated RBC % (a uto) % Nucleated RBCs # /100WBC Sodium (136-145) mmol/L Potassium (3.5-5.1) mmol/L Chloride (98-107) mmol/L Carbon Dioxide (22-29) mmol/L Anion Gap (5-19) BUN (6-20) mg/dL Creatinine (0.5-0.9) mg/dL GFR Calculation (90-130) mL/min Glucose (65-115) mg/dL POC Glucose 415 (70-110) mg/dL Calculated Osmolal ity (285-295) mOsm/k g Calcium (8.5-10.5) mg/dL Total Bilirubin (0.15-1.2) mg/dL AST (0-32) U/L ALT (0-33) U/L Alkaline Phosphata se (35-105) IU/L Total Protein (6.6-8.7) g/dL Albumin (3.5-5.2) g/dL Globulin (1.3-4.6) g/dL Urine Color (Yellow) Urine Appearance (CLEAR) Urine pH (5-7) Ur Specific Gravit y (1.005-1.030) Urine Protein (Negative) Urine Glucose (UA) (Normal) Urine Ketones (Negative) Urine Blood (Negative) Urine Nitrate (Negative) Urine Bilirubin (NEGATIVE) Urine Urobilinogen (Negative) mg/dL Ur Leukocyte Colleen ase (Negative) Imaging Data^: CXR: Radiologist's impression: [place] [address] XRay Report Signed Patient: Kay Calles Unit #: [id number] : 1965 Age/Sex: 54 / F ADM Date: 10/26/19 Loc: ER Room/Bed: Attending Dr: Ordering Provider/Ordering MD: Carmela Haro MD Date of Service: 10/26/19 Procedure(s): XR chest 1V portable [id number] Accession Number(s): [id number] Report Number: [id number] PROCEDURE INFORMATION: Exam: XR Chest, 1 View Exam date and time: 10/26/2019 6:29 PM Age: 54 years old Clinical indication: Cough and fever TECHNIQUE: Imaging protocol: XR of the chest Views: 1 view. COMPARISON: CR XR chest 1V portable [id number] 10/17/2019 5:02 PM FINDINGS: There is mild infiltrate within the left lung base. The right lung is clear. There is no pleural effusion or pneumothorax. The heart size is normal. XR/XR chest 1V portable [id number] IMPRESSION: Mild infiltrate within the left lung base. Discharge Plan Discharge Patient Disposition: Home, Self-Care Clinical Impression: Hyperglycemia Strain of lumbar region Qualifiers: Encounter type: initial encounter Qualified Code(s): S39.012A - Strain of muscle, fascia and tendon of lower back, initial encounter Migraine Qualifiers: Migraine type: unspecified Status migrainosus presence: without status migrainosus Intractability: not intractable Qualified Code(s): G43.909 - Migraine, unspecified, not intractable, without status migrainosus Condition: Stable Prescriptions: [place] 5-325 mg tablet 1 tab PO Q6H PRN (Reason: pain) Qty: 14 RF: 0 Robaxin-750 750 mg tablet 750 mg PO Q6H Qty: 30 RF: 0 No Action nitroglycerin [Nitrostat] 0.4 mg tablet, sublingual 0.4 mg SUBLINGUAL PRN PRN (Reason: Chest Pain) RF: 0 insulin lispro [Humalog KwikPen Insulin] 100 unit/mL Insulin Pen See Rx Instructions .ROUTE .COMPLEX RF: 0 pantoprazole [Protonix] 40 mg Tablet,Delayed Release (Dr/Ec) 40 mg PO DAILY RF: 0 haloperidol 5 mg Tablet 5 mg PO BID PRN (Reason: Agitation) 30 Days Qty: 60 RF: 0 trazodone 50 mg Tablet 50 mg PO BEDTIME PRN (Reason: Sleep) 30 Days Qty: 30 RF: 1 ziprasidone HCl 40 mg Capsule 40 mg PO 0700,1700 30 Days Qty: 60 RF: 1 ondansetron HCl [Zofran] 8 mg Tablet 8 mg PO Q12H PRN (Reason: NAUSEA/VOMITING) RF: 0 doxepin 50 mg Capsule 100 mg PO BEDTIME 30 Days Qty: 60 RF: 2 prazosin 1 mg Capsule 3 mg PO BEDTIME 30 Days Qty: 90 RF: 2 clonidine HCl 0.1 mg Tablet 0.1 mg PO BEDTIME 30 Days Qty: 30 RF: 2 ropinirole 2 mg tablet 2 mg PO BEDTIME 30 Days Qty: 30 RF: 2 desvenlafaxine succinate [Pristiq] 100 mg Tablet Extended Release 24 Hr 100 mg PO DAILY 30 Days Qty: 30 RF: 2 Tresiba FlexTouch U-200 200 unit/mL (3 mL) Insulin Pen 60 unit SUBCUT BEDTIME Qty: 0 RF: 0 chlorpromazine 50 mg Tablet 50 mg PO BID RF: 0 Discharge Orders: Discharge Order (Routine); Ordered 10/26/19 Ordered By: Carmela Haro Referrals: Eber Garsia DO [Primary Care Provider] - 1-3 days Discharge Diet: Advance as tolerated Discharge Activity: Resume usual activity Patient Instructions: Migraine Headache (ED), Low Back Strain (ED) Coding Level of Care Code 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
[2019-10-26 18:42] LABS: Basophils % 0.4 %; Eosinophils # 0.1 10^3/uL (0.0-0.8); Eosinophils % 1.7 %; Hematocrit 26.6 % (37.0-47.0); Hemoglobin 8.1 g/dL (11.5-15.3); Lymphocytes # 0.6 10^3/uL (0.8-4.8); Lymphocytes % 11.4 %; Mean Corpuscular HGB Conc 30.5 g/dL (30.0-36.0); Mean Corpuscular Hemoglobin 22.8 pg (28.0-34.0); Mean Corpuscular Volume 74.9 fL (81-99); Mean Platelet Volume 10.3 fL (7.4-10.4); Monocytes # 0.3 10^3/uL (0.2-0.9); Monocytes % 6.8 %; Neutrophils % 76.4 %; Nucleated Red Blood Cells % 0.4 %; Platelet Count 94 10^3/cmm (130-400); Red Blood Count 3.55 10^6/uL (4.1-5.3); White Blood Count 4.8 10^3/uL (4.0-10.0)
[2019-10-26] MEDS: diphenhydrAMINE 50 mg/mL SDV 1mL IVP (18:45)
[2019-10-26] MEDS: sodium chloride 0.9% 1,000 ML 999 ML IV (18:45)
[2019-10-26] MEDS: metoclopramide 5 mg/mL SDV 2 mL 10 MG IVP (18:46)
[2019-10-26 18:53] LABS: Add Urine Microscopic? NO
[2019-10-26 18:56] LABS: Alanine Aminotransferase 18 U/L (0-33); Albumin Level 3.5 g/dL (3.5-5.2); Alkaline Phosphatase 175 IU/L (35-105); Anion Gap 15.8 (5-19); Aspartate Amino Transferase 20 U/L (0-32); Blood Urea Nitrogen 5 mg/dL (6-20); Calcium 8.3 mg/dL (8.5-10.5); Carbon Dioxide 22 mmol/L (22-29); Chloride 96 mmol/L (98-107); Globulin 2.7 g/dL (1.3-4.6); Glomerular Filtration Rate 129.6 mL/min (90-130); Osmolality Calculated 294 mOsm/kg (285-295); Potassium 3.8 mmol/L (3.5-5.1); Sodium 130 mmol/L (136-145); Total Bilirubin 0.4 mg/dL (0.15-1.2); Total Protein 6.2 g/dL (6.6-8.7)
[2019-10-26 19:00] LABS: Urine Color Yellow (Yellow)
[2019-10-26 19:01] LABS: Bilirubin Urine Neg (NEGATIVE); Blood Urine Neg (Negative); Glucose Urine UA 4+ (Normal); Ketones Urine Negative (Negative); Leukocyte Esterase Urine Negative (Negative); Nitrate Urine Negative (Negative); Protein Urine Neg (Negative); Specific Gravity, Urine 1.005 (1.005-1.030); Urine Appearance Clear (CLEAR); Urobilinogen Urine Norm (Negative); pH Urine 7 (5-7)
[2019-10-26 19:10] LABS: Glucose 614 mg/dL (65-115)
[2019-10-26 19:11] VITALS: RESP 16; O2SAT 99
[2019-10-26] MEDS: dexamethasone 10 mg/mL INJ IVP (19:11)
[2019-10-26] MEDS: morphine 4 mg/mL SDV 1 mL IVP (19:11)
[2019-10-26 19:16] VITALS: BP 144/86; PULSE 110; RESP 16; O2SAT 100
[2019-10-26] MEDS: insulin regular-human 100 units/1 mL 12 UNIT IVP (19:22)
[2019-10-26 20:02] LABS: Glucose Point of Care 415 mg/dL (70-110)
[2019-10-26 20:27] VITALS: RESP 16; O2SAT 98
[2019-10-26] MEDS: HYDROmorphone 1 mg/mL INJ 1 mL IVP (20:27)
[2019-10-26 20:29] VITALS: BP 135/77; PULSE 11; RESP 16; O2SAT 97
== END 2019-10-26 20:39 | disposition home or self-care (01) ==
PROVIDERS: Emergency Provider Emergency Medicine; PCP Internal Medicine
DX: G43.909 Migraine, unspecified, not intractable, without status migrainosus (principal); S39.012A Strain of muscle, fascia and tendon of lower back, initial encounter; E11.65 Type 2 diabetes mellitus with hyperglycemia; Z79.4 Long term (current) use of insulin; I50.9 Heart failure, unspecified; F17.210 Nicotine dependence, cigarettes, uncomplicated; X58.XXXA Exposure to other specified factors, initial encounter
CPT/HCPCS: 12345; 36416; 71045; 80053; 81003; 82962; 85025; 96361; 96374; 96375; 96376; 99283; 99284; J1100; J1170; J1200; J1815; J2270; J2765; J7030

== ENCOUNTER → 2019-10-28 14:24 | Outpatient (BNVA) | payer MEDICARE, MEDICAID, SELFPAY | PROVIDERS: Family Provider Internal Medicine; PCP Internal Medicine; Visit Provider Specialist | DX: M46.1 Sacroiliitis, not elsewhere classified (principal); M79.7 Fibromyalgia; M51.9 Unspecified thoracic, thoracolumbar and lumbosacral intervertebral disc disorder; G95.9 Disease of spinal cord, unspecified; Z87.828 Personal history of other (healed) physical injury and trauma; F60.3 Borderline personality disorder; F45.0 Somatization disorder; M54.31 Sciatica, right side; M54.32 Sciatica, left side; F43.21 Adjustment disorder with depressed mood; Z63.4 Disappearance and death of family member | CPT/HCPCS: 99214 ==

== ENCOUNTER 2019-10-29 10:12 | Outpatient (CLI) | payer MEDICARE, MEDICAID, SELFPAY ==
--- NOTE | 2019-10-29 10:41 | CT_ITS ---
WS: [id number] CT CHEST TECHNIQUE: Noncontrast CT of the chest with coronal and sagittal reformatted images. CLINICAL INFORMATION: HEMOPTYSIS COMPARISON: CTA chest October 17, 2019 DLP: 996.[address] scans at [facility] use at least one of these dose optimization techniques: automat ed exposure control; mA and/or kV adjustment per patient size (includes targeted exams where dose is matched to clinical indication); or iterative reconstruction. FINDINGS: Tiny amount of stable hazy groundglass infiltrate about the right hilum and left lower lobe. This is unchanged from previous and likely infectious or inflammatory. No focal consolidation. No progressed infiltrates. No mediastinal or hilar lymphadenopathy. Normal caliber thoracic aorta. Fluid within the distal esoph jace with esophageal thickening. This can be seen with reflux esophagitis. This can be further evalua carson with endoscopy. Cholecystectomy clips. Adrenal glands are normal. Partially visualized splenomegaly unchanged. CT/CT chest wo con [id number] IMPRESSION: 1. Small amount of unchanged patchy groundglass infiltrates about the right hi lum and left lower lobe. These are likely infectious or inflammatory. No progre ssed infiltrates. No focal pneumonia. 2. No mediastinal or hilar lymphadenopathy. 3. Air-fluid level in the mid and distal esophagus with esophageal thickening can be seen with esophagitis. This can be further evaluated with endoscopy. 4. Partially visualized stable splenomegaly
== END 2019-10-29 10:13 | disposition home or self-care (01) ==
LOC: RADWPI 10:24
PROVIDERS: Family Provider Internal Medicine; PCP Internal Medicine; Visit Provider Internal Medicine
DX: R04.2 Hemoptysis (principal); R91.8 Other nonspecific abnormal finding of lung field; R16.1 Splenomegaly, not elsewhere classified
CPT/HCPCS: 71250

== ENCOUNTER 2019-10-31 11:09 | Outpatient (CLI) | payer MEDICARE, MEDICAID, SELFPAY ==
[2019-10-31 11:32] VITALS: BP 140/77; PULSE 102; RESP 18; TEMP 36.5; O2SAT 97
[2019-10-31] MEDS: ferric carboxy (IVPB) 750 MG in sodium chloride 0.9% (100 ml) 100 ML 345 MG IV (12:27)
[2019-10-31 12:29] VITALS: BMI 38.3
== END 2019-10-31 11:10 | disposition home or self-care (01) ==
LOC: GILAB 11:14
PROVIDERS: Family Provider Internal Medicine; PCP Internal Medicine; Visit Provider Internal Medicine
DX: D50.9 Iron deficiency anemia, unspecified (principal)
CPT/HCPCS: 96365; J1439

== ENCOUNTER → 2019-11-13 15:35 | Outpatient (BNVA) | payer MEDICARE, MEDICAID, SELFPAY | PROVIDERS: Family Provider Internal Medicine; PCP Internal Medicine; Visit Provider Specialist | DX: M79.7 Fibromyalgia (principal); M54.31 Sciatica, right side; M54.32 Sciatica, left side; F17.210 Nicotine dependence, cigarettes, uncomplicated | CPT/HCPCS: 20550; 99212; J1030; J3490 ==

== ENCOUNTER 2019-11-17 07:00 | Outpatient (CLI) | payer MEDICARE, MEDICAID, SELFPAY ==
--- NOTE | 2019-11-17 07:10 | USCV_ITS ---
Stevna Kay Age: 54 Gender: F : 1965 Exam Date: 11/17/2019 07:27 Ordering Phys: Eber Garsia DO Technologist: Jessa Fernandes Exam Location: [facility] – [place] Indication: [place]GADO BP: 90 / 60 HR: 92 Rhythm: Sinus Technical Quality: Adequate MEASUREMENTS (Male / Female) Normal Values 2D ECHO LV Diastolic Diameter PLAX 4.0 cm 4.2 - 5.9 / 3.9 - 5.3 cm LV Systolic Diameter PLAX 2.9 cm LV Chamber Size 4.4 cm IVS Diastolic Thickness 1.6 cm 0.6 - 1.0 / 0.6 - 0.9 cm IVS Systolic Thickness 1.5 cm LVPW Diastolic Thickness 1.1 cm 0.6 - 1.0 / 0.6 - 0.9 cm LVPW Systolic Thickness 1.3 cm RV Chamber Size 2.7 cm LVOT Diameter 2.0 cm LV Ejection Fraction 2D Teich 56.1 % LV Ejection Fraction MOD 2C 53.2 % LV Ejection Fraction 2C AL 56.0 % LA Diameter 4.4 cm LA Width 3.7 cm LA Height 3.6 cm RA Width 2.9 cm RA Height 3.6 cm Aorta at Sinotubular Diameter 3.0 cm M-MODE LV Diastolic Diameter MM 4.3 cm 4.2 - 5.9 / 3.9 - 5.3 cm LV Systolic Diameter MM 3.0 cm LV Ejection Fraction MM Teich 59.2 % IVS Diastolic Thickness MM 1.1 cm 0.6 - 1.0 / 0.6 - 0.9 cm IVS Systolic Thickness MM 1.2 cm LVPW Diastolic Thickness MM 0.9 cm 0.6 - 1.0 / 0.6 - 0.9 cm LVPW Systolic Thickness MM 1.9 cm RV Diastolic Diameter MM 1.2 cm Aortic Annulus Diameter 3.2 cm LA Ao Ratio MM 1.4 MV E Point Septal Separation 0.5 cm DOPPLER AV Peak Velocity 158.0 cm/s LVOT Peak Velocity 133.0 cm/s AV Area Cont Eq vti 2.6 cm squared AV Area Cont Eq pk 2.6 cm squared MV Area PHT 9.2 cm squared Mitral E to A Ratio 1.0 MV E' Velocity 9.0 cm/s Mitral E to MV E' Ratio 10.2 Mitral E to LV E' Lateral Ratio 10.7 Mitral E to LV E' Septal Ratio 9.7 TR Peak Velocity 130.7 cm/s TR Peak Gradient 6.8 mmHg TR Mean Velocity 85.0 cm/s TR Mean Gradient 3.3 mmHg TR Velocity Time Integral 26.6 cm TV Peak E Velocity 52.0 cm/s PV Peak Velocity 83.0 cm/s RV Acceleration Time 0.1 s RV Ejection Time 0.3 s RV AcT/ET 0.5 FINDINGS Left Ventricle Normal left ventricular size and systolic function, EF 59 %. Mild left ventricular hypertrophy. No regional wall motion abnormalities. Right Ventricle Normal right ventricular size and systolic function. Right Atrium The right atrium is normal in size. Left Atrium Mildly increased left atrial size. Mitral Valve Thickened mitral valve. Trace mitral valve regurgitation. Aortic Valve Structurally normal aortic valve without significant sclerosis or stenosis. There is no aortic regurgitation. Tricuspid Valve Trace tricuspid valve regurgitation. Pulmonic Valve Trace pulmonary valve regurgitation. Pericardium Normal pericardium without effusion. Aorta Normal aortic annulus size. CONCLUSIONS Normal left ventricular size and systolic function, EF 59 %. Mildly increased left atrial size. Thickened mitral valve. Trace mitral valve regurgitation. Mild left ventricular hypertrophy. No regional wall motion abnormalities. Trace of mitral, tricuspid and pulmonic valve regurgitation There is no pericardial effusion. No previous study is available for comparison. Dr Tom Ford MD FACC (Electronically Signed) Final Date: 17 November 2019 13:45 S
== END 2019-11-17 07:01 | disposition home or self-care (01) ==
LOC: US 07:02
PROVIDERS: PCP Internal Medicine; Visit Provider Internal Medicine
DX: R06.00 Dyspnea, unspecified (principal); I34.0 Nonrheumatic mitral (valve) insufficiency
CPT/HCPCS: 93306

== ENCOUNTER 2019-12-11 23:27 | Emergency (ER) | payer MEDICARE, MEDICAID, SELFPAY ==
[2019-12-11 23:50] VITALS: BP 150/82; PULSE 103; RESP 18; TEMP 36.4; O2SAT 98; BMI 39.2
[2019-12-12 01:34] LABS: Basophils % 0.4 %; Eosinophils # 0.1 10^3/uL (0.0-0.8); Eosinophils % 1.8 %; Hematocrit 45.1 % (37.0-47.0); Hemoglobin 14.6 g/dL (11.5-15.3); Lymphocytes # 1.1 10^3/uL (0.8-4.8); Lymphocytes % 21.3 %; Mean Corpuscular HGB Conc 32.4 g/dL (30.0-36.0); Mean Corpuscular Hemoglobin 27.2 pg (28.0-34.0); Mean Platelet Volume 9.4 fL (7.4-10.4); Monocytes # 0.4 10^3/uL (0.2-0.9); Monocytes % 8.1 %; Neutrophils # 3.45 10^3/uL (1.8-7.7); Neutrophils % 68.2 %; Nucleated Red Blood Cells % 0 %; Platelet Count 101 10^3/cmm (130-400); Red Blood Count 5.37 10^6/uL (4.1-5.3); Red Cell Distribution Width 20.6 % (12.1-15.1); White Blood Count 5.1 10^3/uL (4.0-10.0)
[2019-12-12 01:36] LABS: Add Urine Microscopic? NO
[2019-12-12 01:40] LABS: Bilirubin Urine Neg (NEGATIVE); Blood Urine Neg (Negative); Glucose Urine UA 4+ (Normal); Ketones Urine Negative (Negative); Leukocyte Esterase Urine Negative (Negative); Nitrate Urine Negative (Negative); Protein Urine Neg (Negative); Specific Gravity, Urine 1.005 (1.005-1.030); Urine Appearance Clear (CLEAR); Urine Color Straw (Yellow); Urobilinogen Urine Norm (Negative); pH Urine 5 (5-7)
[2019-12-12 01:41] LABS: Alanine Aminotransferase 31 U/L (0-33); Albumin Level 3.9 g/dL (3.5-5.2); Alkaline Phosphatase 170 IU/L (35-105); Aspartate Amino Transferase 27 U/L (0-32); Blood Urea Nitrogen 7 mg/dL (6-20); Calcium 9.4 mg/dL (8.5-10.5); Carbon Dioxide 20 mmol/L (22-29); Chloride 94 mmol/L (98-107); Globulin 3.2 g/dL (1.3-4.6); Glomerular Filtration Rate 129.6 mL/min (90-130); Sodium 126 mmol/L (136-145); Total Bilirubin 0.9 mg/dL (0.15-1.2); Total Protein 7.1 g/dL (6.6-8.7)
[2019-12-12 01:44] LABS: Anion Gap 16.1 (5-19); Potassium 4.1 mmol/L (3.5-5.1)
[2019-12-12 01:49] LABS: Osmolality Calculated 296 mOsm/kg (285-295)
[2019-12-12 01:57] LABS: Glucose 786 mg/dL (65-115)
--- NOTE | 2019-12-12 02:18 | W.ED.HA ---
HPI - Headache General: Chief Complaint: Headache Stated Complaint: MIGRAINE/ HIGH GLUCOSE Time Seen by Provider: 12/12/19 01:59 Source: patient Limitations: no limitations History of Present Illness: HPI Narrative: 54-year-old female who has a history of migraine headaches along with ABDs. Patient states she had a migraine headache over the last 4 to 5 days. States started gradually and is just worsened. States she is had no relief at home. Is worse with bright lights and is just like her previous migraines. She states she also has not been taking her insulin and her blood sugars have been running high. She denies any vomiting or diarrhea. MD elicited complaint: headache and migraine Onset (ago): day(s) Onset description: gradually Severity: moderate Exacerbating factors: light Relieving factors: dark room Associated symptoms: Deny chest pain, fever(s), nausea, rash or vomiting Review of Systems Const: Denies: fever(s), chills, body aches or change in appetite Eyes: Denies: blurry vision or eye discomfort ENMT: Denies: throat pain or dental pain Card: Denies: chest pain Resp: Denies: dyspnea GI: Denies: abdominal pain, nausea, vomiting or diarrhea : Denies: dysuria Musc: Denies: neck pain or back pain Skin/Breast: Denies: rash Neuro: Reports: headache(s) Psych: Denies: depression Girma/Lymph: Denies: easy bruising All/Imm: Denies: urticaria PFSH ED PFSH: Medical History Bilateral primary osteoarthritis of hip Chronic back pain Congestive heart failure Diabetes mellitus H/O Belkys-Valenzuela syndrome MONTANO (nonalcoholic steatohepatitis) Suicidal behavior Surgical History H/O cervical spine surgery H/O colonoscopy History of esophagogastroduodenoscopy Social History Smoking and tobacco status: current every day smoker cigarettes Packs smoked per day: 0.5 Alcohol intake: never History of recent travel: No Physical Exam Const: COMMON NORMALS: no acute distress, patient oriented x3 and healthy appearing HENMT: COMMON NORMALS: normocephalic and atraumatic HEAD & SCALP: normocephalic and atraumatic Eye: COMMON NORMALS: Equal, round and reactive pupils present and EOMs intact bilaterally PUPIL: Yes Equal, round and reactive pupils present Neck/C-Spine: COMMON NORMALS: full ROM and supple Chest: COMMONS NORMALS: normal inspection of the chest and normal palpation of entire chest wall Resp: COMMON NORMALS: normal respiratory effort, No retractions, No use of accessory muscles and clear to auscultation bilaterally AUSCULTATION: clear to auscultation bilaterally Cardio: COMMON NORMALS: regular rate, regular rhythm and No murmurs present (Cardio) RATE: regular rate RHYTHM: regular rhythm GI: COMMON NORMALS: Normal to inspection, nondistended, normoactive bowel sounds present, Soft to palpation, non-tender and no masses PALPATION: Yes Soft to palpation Extremity: COMMON NORMALS: normal to inspection and full ROM Neuro: COMMON NORMALS: patient oriented x3, moves all extremities and no focal motor deficits Psych: COMMON NORMALS: mental status grossly normal, Normal thought process present and cooperative THOUGHT PROCESS: Normal thought process present Skin: COMMON NORMALS: no rashes or lesions noted and no wounds GENERAL SKIN EXAM: no rashes or lesions noted Course Vital Signs: Vital signs: Vital Signs Temperature 97.6 F 12/11/19 23:50 Pulse Rate 87 12/12/19 04:26 Respiratory Rate 16 12/12/19 04:26 Blood Pressure 132/87 12/12/19 04:26 Pulse Oximetry 97 12/12/19 04:26 MDM - Headache MDM Narrative: Medical decision making narrative: Kay presents with a headache that is likely a migraine headache. Patient's headache is resolved here. Patient was hyperglycemic likely due to noncompliance. Blood sugars improved. She is not in DKA. She is stable for discharge and is to follow-up with PCP and return if worsening. Lab Data: Labs: Lab Results 12/12/19 12/12/19 12/12/19 Range/Units 00:30 01:20 01:20 WBC 5.1 (4.0-10.0) 10^3/ uL RBC 5.37 H (4.1-5.3) 10^6/u L Hgb 14.6 (11.5-15.3) g/dL Hct 45.1 (37.0-47.0) % MCV 84.0 (81-99) fL MCH 27.2 L (28.0-34.0) pg MCHC 32.4 (30.0-36.0) g/dL RDW 20.6 H (12.1-15.1) % Plt Count 101 L (130-400) 10^3/c mm MPV 9.4 (7.4-10.4) fL Neut % (Auto) 68.2 % Lymph % (Auto) 21.3 % [place] % (Auto) 8.1 % Eos % (Auto) 1.8 % Baso % (Auto) 0.4 % Neut # (Auto) 3.45 (1.8-7.7) 10^3/u L Lymph # (Auto) 1.1 (0.8-4.8) 10^3/u L [place] # (Auto) 0.4 (0.2-0.9) 10^3/u L Eos # (Auto) 0.1 (0.0-0.8) 10^3/u L Baso # (Auto) 0.0 (0.0-0.1) 10^3/u L Nucleated RBC % (a uto) 0 % Nucleated RBCs # 0.0 /100WBC Sodium 126 L (136-145) mmol/L Potassium 4.1 (3.5-5.1) mmol/L Chloride 94 L (98-107) mmol/L Carbon Dioxide 20 L (22-29) mmol/L Anion Gap 16.1 (5-19) BUN 7 (6-20) mg/dL Creatinine 0.5 (0.5-0.9) mg/dL GFR Calculation 129.6 (90-130) mL/min Glucose 786 H* (65-115) mg/dL POC Glucose (70-110) mg/dL Calculated Osmolal ity 296 H (285-295) mOsm/k g Calcium 9.4 (8.5-10.5) mg/dL Total Bilirubin 0.9 (0.15-1.2) mg/dL AST 27 (0-32) U/L ALT 31 (0-33) U/L Alkaline Phosphata se 170 H (35-105) IU/L Total Protein 7.1 (6.6-8.7) g/dL Albumin 3.9 (3.5-5.2) g/dL Globulin 3.2 (1.3-4.6) g/dL Urine Color Straw (Yellow) Urine Appearance Clear (CLEAR) Urine pH 5 (5-7) Ur Specific Gravit y 1.005 (1.005-1.030) Urine Protein Neg (Negative) Urine Glucose (UA) 4+ H (Normal) Urine Ketones Negative (Negative) Urine Blood Neg (Negative) Urine Nitrate Negative (Negative) Urine Bilirubin Neg (NEGATIVE) Urine Urobilinogen Norm (Negative) mg/dL Ur Leukocyte Colleen ase Negative (Negative) 12/12/19 12/12/19 12/12/19 Range/Units 02:54 03:44 04:20 WBC (4.0-10.0) 10^3/ uL RBC (4.1-5.3) 10^6/u L Hgb (11.5-15.3) g/dL Hct (37.0-47.0) % MCV (81-99) fL MCH (28.0-34.0) pg MCHC (30.0-36.0) g/dL RDW (12.1-15.1) % Plt Count (130-400) 10^3/c mm MPV (7.4-10.4) fL Neut % (Auto) % Lymph % (Auto) % [place] % (Auto) % Eos % (Auto) % Baso % (Auto) % Neut # (Auto) (1.8-7.7) 10^3/u L Lymph # (Auto) (0.8-4.8) 10^3/u L [place] # (Auto) (0.2-0.9) 10^3/u L Eos # (Auto) (0.0-0.8) 10^3/u L Baso # (Auto) (0.0-0.1) 10^3/u L Nucleated RBC % (a uto) % Nucleated RBCs # /100WBC Sodium (136-145) mmol/L Potassium (3.5-5.1) mmol/L Chloride (98-107) mmol/L Carbon Dioxide (22-29) mmol/L Anion Gap (5-19) BUN (6-20) mg/dL Creatinine (0.5-0.9) mg/dL GFR Calculation (90-130) mL/min Glucose (65-115) mg/dL POC Glucose 447 346 385 (70-110) mg/dL Calculated Osmolal ity (285-295) mOsm/k g Calcium (8.5-10.5) mg/dL Total Bilirubin (0.15-1.2) mg/dL AST (0-32) U/L ALT (0-33) U/L Alkaline Phosphata se (35-105) IU/L Total Protein (6.6-8.7) g/dL Albumin (3.5-5.2) g/dL Globulin (1.3-4.6) g/dL Urine Color (Yellow) Urine Appearance (CLEAR) Urine pH (5-7) Ur Specific Gravit y (1.005-1.030) Urine Protein (Negative) Urine Glucose (UA) (Normal) Urine Ketones (Negative) Urine Blood (Negative) Urine Nitrate (Negative) Urine Bilirubin (NEGATIVE) Urine Urobilinogen (Negative) mg/dL Ur Leukocyte Colleen ase (Negative) Discharge Plan Discharge Patient Disposition: Home Clinical Impression: Acute hyperglycemia Migraine Qualifiers: Migraine type: unspecified Status migrainosus presence: without status migrainosus Intractability: not intractable Qualified Code(s): G43.909 - Migraine, unspecified, not intractable, without status migrainosus Condition: Stable Prescriptions: No Action nitroglycerin [Nitrostat] 0.4 mg tablet, sublingual 0.4 mg SUBLINGUAL PRN PRN (Reason: Chest Pain) RF: 0 diazepam [Valium] 10 mg tablet 10 mg PO BID Qty: 2 RF: 0 insulin lispro [Humalog KwikPen Insulin] 100 unit/mL Insulin Pen See Rx Instructions .ROUTE .COMPLEX RF: 0 pantoprazole [Protonix] 40 mg Tablet,Delayed Release (Dr/Ec) 40 mg PO DAILY RF: 0 trazodone 50 mg Tablet 50 mg PO BEDTIME PRN (Reason: Sleep) 30 Days Qty: 30 RF: 1 ziprasidone HCl 40 mg Capsule 40 mg PO 0700,1700 30 Days Qty: 60 RF: 1 methocarbamol [Robaxin-750] 750 mg tablet 750 mg PO Q6H Qty: 30 RF: 0 ondansetron HCl [Zofran] 8 mg Tablet 8 mg PO Q12H PRN (Reason: NAUSEA/VOMITING) RF: 0 doxepin 50 mg Capsule 100 mg PO BEDTIME 30 Days Qty: 60 RF: 2 prazosin 1 mg Capsule 3 mg PO BEDTIME 30 Days Qty: 90 RF: 2 clonidine HCl 0.1 mg Tablet 0.1 mg PO BEDTIME 30 Days Qty: 30 RF: 2 ropinirole 2 mg tablet 2 mg PO BEDTIME 30 Days Qty: 30 RF: 2 desvenlafaxine succinate [Pristiq] 100 mg Tablet Extended Release 24 Hr 100 mg PO DAILY 30 Days Qty: 30 RF: 2 Tresiba FlexTouch U-200 200 unit/mL (3 mL) Insulin Pen 60 unit SUBCUT BEDTIME Qty: 0 RF: 0 chlorpromazine 50 mg Tablet 50 mg PO BID RF: 0 Discharge Orders: Discharge Order (Routine); Ordered 12/12/19 Ordered By: Carmela Haro Referrals: Eber Garsia DO [Primary Care Provider] - 1-3 days Discharge Diet: Advance as tolerated Discharge Activity: Resume usual activity Patient Instructions: Migraine Headache (ED), Diabetic Hyperglycemia (ED) Discharge Date/Time: 12/12/19 04:38 Coding Level of Care Code ED 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
[2019-12-12] MEDS: diphenhydrAMINE 50 mg/mL SDV 1mL IVP (02:37)
[2019-12-12] MEDS: insulin regular-human 100 units/1 mL 14 UNIT IVP (02:37)
[2019-12-12] MEDS: sodium chloride 0.9% 1,000 ML 999 ML IV ×2 (02:37→03:11)
[2019-12-12] MEDS: metoclopramide 5 mg/mL SDV 2 mL 10 MG IVP (02:37)
[2019-12-12 02:45] VITALS: PULSE 110; RESP 16; O2SAT 98
--- NOTE | 2019-12-12 02:55 | PC.NURSE ---
Blood glucose is 447, nurse and doctor are aware
[2019-12-12 02:58] LABS: Glucose Point of Care 447 mg/dL (70-110)
[2019-12-12] MEDS: LORazepam 2 mg/mL INJ 1 mL 0.5 MG IVP ×2 (03:11→04:02)
--- NOTE | 2019-12-12 03:46 | PC.NURSE ---
Blood glucose is 346, nurse and doctor are aware
[2019-12-12] MEDS: morphine 4 mg/mL SDV 1 mL IVP (03:47)
[2019-12-12 03:48] LABS: Glucose Point of Care 346 mg/dL (70-110)
[2019-12-12] MEDS: ondansetron 2 mg/ML SDV 2 mL 4 MG IVP (04:02)
[2019-12-12 04:06] VITALS: BP 134/87; PULSE 89; RESP 16; O2SAT 98
--- NOTE | 2019-12-12 04:21 | PC.NURSE ---
Blood glucose is 385, nurse and doctor aware
[2019-12-12 04:24] LABS: Glucose Point of Care 385 mg/dL (70-110)
[2019-12-12 04:26] VITALS: BP 132/87; PULSE 87; RESP 16; O2SAT 97
== END 2019-12-12 04:38 | disposition home or self-care (01) ==
PROVIDERS: Emergency Provider Emergency Medicine; PCP Internal Medicine
DX: G43.909 Migraine, unspecified, not intractable, without status migrainosus (principal); E11.65 Type 2 diabetes mellitus with hyperglycemia; Z79.4 Long term (current) use of insulin; I50.9 Heart failure, unspecified; F17.210 Nicotine dependence, cigarettes, uncomplicated
CPT/HCPCS: 12345; 36415; 36416; 80053; 81003; 82962; 85025; 96360; 96361; 96374; 96375; 96376; 99283; 99284; J1200; J1815; J2060; J2270; J2405; J2765; J7030

== ENCOUNTER 2019-12-18 07:48 | Outpatient (CLI) | payer MEDICARE, MEDICAID, SELFPAY ==
--- NOTE | 2019-12-18 08:23 | CT_ITS ---
WS: [id number] CT NECK WITH CONTRAST HISTORY: CERVICAL ADENOPATHY TECHNIQUE: Contiguous 5 mm axial images are performed through the neck with intravenous contrast. Sag ittal and coronal reformats are also submitted. All CT scans at [facility] use at least o ne of these dose optimization techniques: automated exposure control; mA and/or kV adjustment per pat ient size (includes targeted exams where dose is matched to clinical indication); or iterative recons truction. CONTRAST: CONTRAST: Omnipaque 300; 95 mL IV. DLP: 2877.2 mGycm COMPARISON: Cervical spine 09/28/[address] 08/02/2010. Nasopharynx, oropharynx, hypopharynx and larynx are unremarkable. No soft tissue masses or abnormal e nhancement. Torus tubarius and fossa of Rosenmuller and parapharyngeal fat are normal. No significant lymphadenopathy is identified. Small bilateral cervical chain lymph nodes predominantl y level II. No necrotic or enlarged lymph nodes. Thyroid gland and salivary glands are normally enhancing with no masses. Prior anterior cervical fusion from C5 to C7 with interbody spacers. Osteopenia with severe disc spac e narrowing throughout the cervical spine. Additional hardware posteriorly from C3 through C7. Visualized portions of the skull base demonstrate no abnormalities. Orbits and globes are within norm al limits. No soft tissue masses. Visualized paranasal sinuses and mastoid air cells are normal. Lung apices are clear. 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 CT/CT neck w con* [id number] IMPRESSION: 1. No cervical chain lymphadenopathy. 2. Cardiomegaly.
[2019-12-18] MEDS: iohexol 300 mg/mL 100 mL Btl IV (08:57)
== END 2019-12-18 07:49 | disposition home or self-care (01) ==
LOC: RADWPI 07:53
PROVIDERS: PCP Internal Medicine; Visit Provider Family Medicine
DX: R59.0 Localized enlarged lymph nodes (principal); I51.7 Cardiomegaly
CPT/HCPCS: 70491; Q9967

== ENCOUNTER → 2019-12-30 13:50 | Outpatient (BNVA) | payer MEDICARE, MEDICAID, SELFPAY | PROVIDERS: PCP Internal Medicine; Referring Provider Internal Medicine; Visit Provider Internal Medicine | DX: E11.40 Type 2 diabetes mellitus with diabetic neuropathy, unspecified (principal); E11.59 Type 2 diabetes mellitus with other circulatory complications; I50.9 Heart failure, unspecified; E11.65 Type 2 diabetes mellitus with hyperglycemia; F32.9 Major depressive disorder, single episode, unspecified; F43.21 Adjustment disorder with depressed mood; F50.9 Eating disorder, unspecified; K75.81 Nonalcoholic steatohepatitis (NASH); Z63.4 Disappearance and death of family member | CPT/HCPCS: 99205 ==

== ENCOUNTER 2020-01-01 16:21 | Outpatient (CLI) | payer MEDICARE, MEDICAID, SELFPAY ==
[2020-01-01 17:08] LABS: Estmated Average Glucose 278; Hemoglobin A1C 11.3 % (4.0-6.0)
== END 2020-01-01 16:22 | disposition home or self-care (01) ==
LOC: LAB 16:27
PROVIDERS: Internal Medicine; PCP Internal Medicine; Visit Provider Internal Medicine
DX: E11.9 Type 2 diabetes mellitus without complications (principal)
CPT/HCPCS: 83036

== ENCOUNTER → 2020-01-05 13:25 | Outpatient (BNVA) | payer MEDICARE, MEDICAID, SELFPAY | PROVIDERS: PCP Internal Medicine; Referring Provider Emergency Medicine; Visit Provider Nurse Practitioner | DX: G43.709 Chronic migraine without aura, not intractable, without status migrainosus (principal) | CPT/HCPCS: 99213 ==

== ENCOUNTER 2020-01-08 05:40 | Emergency (ER) | payer MEDICARE, MEDICAID, SELFPAY ==
[2020-01-08] VITALS (7 sets, daily range): BP systolic 125–141; BP diastolic 76–87; PULSE 93–102; RESP 16–20; TEMP 36.6; O2SAT 97–99; BMI 37.3
--- NOTE | 2020-01-08 05:51 | CTR_ITS ---
PROCEDURE INFORMATION: Exam: CT Head Without Contrast Exam date and time: 01/08/2020 5:58 AM Age: 54 years old Clinical indication: Injury or trauma; Fall; Blunt trauma (contusions or hematomas); Without loss of consciousness; Prior surgery; Surgery type: Cervical SX; Additional info: Fall/injury TECHNIQUE: Imaging protocol: Computed tomography of the head without contrast. Radiation optimization: All CT scans at this facility use at least one of these dose optimization techniques: automated exposure control; mA and/or kV adjustment per patient size (includes targeted exams where dose is matched to clinical indication); or iterative reconstruction. COMPARISON: CT head wo con* [id number] 12/19/2017 12:11 AM RADIATION DOSE METRICS: Total DLP (mGy-cm): 849.45 FINDINGS: Brain: No acute intracranial hemorrhage or mass effect. Well-defined low attenuation area again seen along the inferior margin of the left basal ganglia may be a prominent perivascular space, possibly an old lacunar infarct. No definite acute infarct by CT. Cerebral ventricles: Ventricle size is normal for age. Bones/joints: No definite acute skull fracture. Paranasal sinuses: Mild fluid/mucosal thickening in the left aspect the sphenoid sinus, similar to the prior exam. Included paranasal sinuses otherwise appear essentially clear. Mastoid air cells: No significant acute finding. CT/CT head wo con* [id number] IMPRESSION: 1. No acute intracranial hemorrhage or mass effect. 2. Other findings discussed above. Radiation Dose CTDIVOL = (mGy): DLP = 849.45 (mGy-cm)
--- NOTE | 2020-01-08 05:51 | XR_ITS ---
WS: [id number] Portable AP upright chest, 01/08/2020 Clinical Data: Fall/injury Comparison: Portable chest, 10/26/2019. Findings: No nodules, masses or effusions are seen. The heart is normal. The pulmonary vascularity is not increased. No pneumonia or pneumothorax is seen. Monitor leads on the chest wall. The patient matthews s had an anterior cervical disc fusion and a probable posterior cervical fusion. XR/XR chest 1V portable [id number] Impression: Negative chest.
--- NOTE | 2020-01-08 05:52 | ED_ITS ---
Documented by User: Janelle Paniagua 01/08/20 05:55 HPI - Fall General: Chief Complaint: Fall Stated Complaint: FALL Time Seen by Provider: 01/08/20 05:55 Source: patient Mode of arrival: EMS History of Present Illness: HPI Narrative: Kay is a nice 54-year-old female who comes in with a complaint of headache after falling. Patient states that she is been weak for the past few days. She describes a sense of generalized weakness not 1 side more so than another. Denies any chest pain, shortness of breath, back pain, fever, abdominal pain, vomiting or other focal complaint. Tonight she states that her legs give out from underneath her when she got up to go to the bathroom and she fell and hit her head. She does not believe she had loss of consciousness but is had a severe headache since. She denies any nausea or vomiting. Patient states for the past few days though she has felt overall weak. She states that she does have diabetes and high blood pressure. She states right now she is most concerned about her head from the fall. She states his generalized weakness will occur for her from time to time. Associated symptoms-after fall: Reports headache(s); Denies abdominal pain, chest pain, confusion, difficulty walking, hematuria, lightheadedness, neck pain or vertigo Review of Systems Const: Denies: fever(s), chills, body aches, fatigue, malaise or diaphoresis Eyes: Denies: change in vision, blurry vision, photophobia, eye discomfort, eye discharge, eye redness or yellow eyes ENMT: Denies: throat pain, odynophagia, hoarseness, swelling of lips/tongue, ear or mastoid pain, ear discharge, change in hearing or nasal discharge Card: Denies: chest pain, palpitations, irregular heart rhythm, edema, lightheadedness, syncope, pre-syncope, dyspnea on exertion or orthopnea Resp: Denies: dyspnea, productive cough, non-productive cough, wheezing, hemoptysis or chest congestion GI: Denies: abdominal pain, nausea, vomiting, hematemesis, coffee ground emesis, heartburn, diarrhea, constipation, GI cramping, hematochezia or melena : Denies: flank pain, dysuria, urinary frequency, urinary urgency or hematuria Musc: Denies: neck pain, back pain, extremity pain, extremity swelling, joint pain, joint swelling, joint redness, joint warmth or joint stiffness Skin/Breast: Denies: rash, pruritus, erythema, skin pain or skin tenderness Neuro: Reports: headache(s); Denies: numbness in extremities, weakness in extremities, sensory changes, lack of coordination, difficulty walking, dizziness, vertigo, confusion, Slurred speech present or seizure-like activity Girma/Lymph: Denies: easy bruising, easy bleeding, petechiae, purpura or enlarged lymph nodes All/Imm: Denies: urticaria, throat swelling, tongue swelling, facial swelling or acute wheezing PFSH ED PFSH: Medical History Bilateral primary osteoarthritis of hip Chronic back pain Congestive heart failure Diabetes mellitus H/O Belkys-Valenzuela syndrome MONTANO (nonalcoholic steatohepatitis) Suicidal behavior Surgical History H/O cervical spine surgery H/O colonoscopy History of esophagogastroduodenoscopy Social History Smoking and tobacco status: current every day smoker cigarettes Packs smoked per day: 0.5 Alcohol intake: never History of recent travel: No Physical Exam Const: COMMON NORMALS: no acute distress, patient oriented x3, no limitations and alert GENERAL APPEARANCE: cooperative HENMT: COMMON NORMALS: normocephalic, atraumatic, external ears normal, EAC's normal and Normal external nose present HEAD & SCALP: normal to inspection, normocephalic and atraumatic FACE & SINUS: normal facial exam and face symmetric NOSE: Normal external nose present and Normal nares present EXTERNAL EAR: Yes external ears normal EXTERNAL AUDITORY CANAL: EAC's normal MOUTH: Normal oral and palatal mucosa present, lip normal and tongue normal Eye: COMMON NORMALS: Equal, round and reactive pupils present and conjunctivae normal GENERAL EYE: appearance normal, both eyes and all related structures ALIGNMENT: Yes alignment normal PERIORBITAL: periorbital findings normal EYELID: eyelids normal CONJUNCTIVA: Yes conjunctivae normal SCLERA: sclerae normal PUPIL: Yes Equal, round and reactive pupils present Neck/C-Spine: COMMON NORMALS: full ROM, no lymphadenopathy, supple, no meningeal signs and no JVD GENERAL: Yes normal visual inspection and Yes trachea midline Chest: COMMONS NORMALS: normal inspection of the chest and normal palpation of entire chest wall Resp: COMMON NORMALS: normal respiratory effort, No retractions, No use of accessory muscles and clear to auscultation bilaterally EFFORT & INSPECTION: Yes able to speak in complete sentences and Yes symmetric chest movement AUSCULTATION: clear to auscultation bilaterally, no crackles, no rales, no rhonchi and no wheezes Cardio: COMMON NORMALS: no JVD, regular rate, regular rhythm, S1 normal heart sound present and S2 normal heart sound present RATE: regular rate RHYTHM: regular rhythm HEART SOUNDS: S1 normal heart sound present, S2 normal heart sound present, no click, no gallops, no murmurs and no rubs GI: COMMON NORMALS: Soft to palpation and No hepatosplenomegaly present PALPATION: Yes Soft to palpation, No Tenderness to palpation present (GI), No Guarding due to palpation present (GI), No Rigid due to palpation, Yes No hepatosplenomegaly present, No Hernia present, No Palpable mass present and No Pulsatile mass present : COMMON NORMALS: Yes no CVA tenderness BLADDER/KIDNEY EXAM: Yes no CVA tenderness EXTERNAL FEMALE EXAM: No Hernia present Back/Pelvis: COMMON NORMALS: no CVA tenderness, thoracic and lumbar spine normal to inspection, no thoracic nor lumbar tenderness and thoraco-lumbar ROM normal Extremity: COMMON NORMALS: normal to inspection, full ROM, capillary refill normal, no joint enlargement, no clubbing, cyanosis or edema and no calf tenderness Neuro: COMMON NORMALS: patient oriented x3, CN's II-XII intact bilaterally, moves all extremities, no focal motor deficits and no sensory deficits noted SENSORIUM/ORIENTATION: Yes alert MENINGEAL SIGNS: Yes no meningeal signs SPEECH: speech normal Psych: COMMON NORMALS: mental status grossly normal, Normal thought process present, cooperative, normal affect, speech normal and activity/motor behavior normal SPEECH: Yes normal speech THOUGHT PROCESS: Normal thought process present Skin: COMMON NORMALS: no rashes or lesions noted, turgor normal, no jaundice, no petechiae and no mottling GENERAL SKIN EXAM: no rashes or lesions noted and turgor normal Course Vital Signs: Vital signs: Vital Signs Temperature 98 F 01/08/20 05:41 Pulse Rate 93 01/08/20 10:03 Respiratory Rate 18 01/08/20 10:03 Blood Pressure 125/76 01/08/20 10:03 Pulse Oximetry 99 01/08/20 10:03 MDM - Fall Lab Data: Labs: Lab Results 01/08/20 01/08/20 01/08/20 Range/Units 06:10 06:10 06:10 WBC 5.4 (4.0-10.0) 10^3/ uL RBC 4.11 (4.1-5.3) 10^6/u L Hgb 11.4 L (11.5-15.3) g/dL Hct 34.1 L (37.0-47.0) % MCV 83.0 (81-99) fL MCH 27.7 L (28.0-34.0) pg MCHC 33.4 (30.0-36.0) g/dL RDW 16.7 H (12.1-15.1) % Plt Count 119 L (130-400) 10^3/c mm MPV 8.9 (7.4-10.4) fL Neut % (Auto) 62.7 % Lymph % (Auto) 28.9 % [place] % (Auto) 6.3 % Eos % (Auto) 1.7 % Baso % (Auto) 0.4 % Neut # (Auto) 3.41 (1.8-7.7) 10^3/u L Lymph # (Auto) 1.6 (0.8-4.8) 10^3/u L [place] # (Auto) 0.3 (0.2-0.9) 10^3/u L Eos # (Auto) 0.1 (0.0-0.8) 10^3/u L Baso # (Auto) 0.0 (0.0-0.1) 10^3/u L Nucleated RBC % (a uto) 0 % Nucleated RBCs # 0.0 /100WBC Sodium 139 (136-145) mmol/L Potassium 3.5 (3.5-5.1) mmol/L Chloride 105 (98-107) mmol/L Carbon Dioxide 20 L (22-29) mmol/L Anion Gap 17.5 (5-19) BUN 7 (6-20) mg/dL Creatinine 0.4 L (0.5-0.9) mg/dL GFR Calculation 167.6 H (90-130) mL/min Glucose 360 H (65-115) mg/dL POC Glucose (70-110) mg/dL Calculated Osmolal ity 301 H (285-295) mOsm/k g Calcium 9.4 (8.5-10.5) mg/dL Magnesium 1.6 L (1.7-2.3) mg/dL Total Bilirubin 0.4 (0.15-1.2) mg/dL AST 40 H (0-32) U/L ALT 33 (0-33) U/L Alkaline Phosphata se 141 H (35-105) IU/L Troponin T Baselin e 6 (0-10) ng/L Troponin T 120 Min [place] (0-10) ng/L Delta Troponin T (0-10) ABS# Total Protein 6.1 L (6.6-8.7) g/dL Albumin 3.8 (3.5-5.2) g/dL Globulin 2.3 (1.3-4.6) g/dL Urine Color (Yellow) Urine Appearance (CLEAR) Urine pH (5-7) Ur Specific Gravit y (1.005-1.030) Urine Protein (Negative) Urine Glucose (UA) (Normal) Urine Ketones (Negative) Urine Blood (Negative) Urine Nitrate (Negative) Urine Bilirubin (Negative) Urine Urobilinogen (Negative) mg/dL Ur Leukocyte Colleen ase (Negative) Urine RBC (0-2) /hpf Urine WBC (0-5) /hpf Ur Squamous Epith Cells (0-5) /hpf Amorphous Sediment Urine Bacteria (NONE) /hpf Urine Mucus /hpf Urine Yeast /hpf Serum Ketones (Negative) 01/08/20 01/08/20 01/08/20 Range/Units 06:10 06:24 06:35 WBC (4.0-10.0) 10^3/ uL RBC (4.1-5.3) 10^6/u L Hgb (11.5-15.3) g/dL Hct (37.0-47.0) % MCV (81-99) fL MCH (28.0-34.0) pg MCHC (30.0-36.0) g/dL RDW (12.1-15.1) % Plt Count (130-400) 10^3/c mm MPV (7.4-10.4) fL Neut % (Auto) % Lymph % (Auto) % [place] % (Auto) % Eos % (Auto) % Baso % (Auto) % Neut # (Auto) (1.8-7.7) 10^3/u L Lymph # (Auto) (0.8-4.8) 10^3/u L [place] # (Auto) (0.2-0.9) 10^3/u L Eos # (Auto) (0.0-0.8) 10^3/u L Baso # (Auto) (0.0-0.1) 10^3/u L Nucleated RBC % (a uto) % Nucleated RBCs # /100WBC Sodium (136-145) mmol/L Potassium (3.5-5.1) mmol/L Chloride (98-107) mmol/L Carbon Dioxide (22-29) mmol/L Anion Gap (5-19) BUN (6-20) mg/dL Creatinine (0.5-0.9) mg/dL GFR Calculation (90-130) mL/min Glucose (65-115) mg/dL POC Glucose 320 (70-110) mg/dL Calculated Osmolal ity (285-295) mOsm/k g Calcium (8.5-10.5) mg/dL Magnesium (1.7-2.3) mg/dL Total Bilirubin (0.15-1.2) mg/dL AST (0-32) U/L ALT (0-33) U/L Alkaline Phosphata se (35-105) IU/L Troponin T Baselin e (0-10) ng/L Troponin T 120 Min [place] (0-10) ng/L Delta Troponin T (0-10) ABS# Total Protein (6.6-8.7) g/dL Albumin (3.5-5.2) g/dL Globulin (1.3-4.6) g/dL Urine Color Yellow (Yellow) Urine Appearance Sl hazy (CLEAR) Urine pH 5 (5-7) Ur Specific Gravit y 1.020 (1.005-1.030) Urine Protein Neg (Negative) Urine Glucose (UA) 4+ H (Normal) Urine Ketones 1+ H (Negative) Urine Blood Neg (Negative) Urine Nitrate Negative (Negative) Urine Bilirubin Neg (Negative) Urine Urobilinogen 1 H (Negative) mg/dL Ur Leukocyte Colleen ase Negative (Negative) Urine RBC 0-4 H (0-2) /hpf Urine WBC 5-10 H (0-5) /hpf Ur Squamous Epith Cells 5-10 H (0-5) /hpf Amorphous Sediment Not Reportable Urine Bacteria 1+ H (NONE) /hpf Urine Mucus Trace /hpf Urine Yeast 1+ H /hpf Serum Ketones Negative (Negative) 01/08/20 01/08/20 Range/Units 08:15 08:37 WBC (4.0-10.0) 10^3/ uL RBC (4.1-5.3) 10^6/u L Hgb (11.5-15.3) g/dL Hct (37.0-47.0) % MCV (81-99) fL MCH (28.0-34.0) pg MCHC (30.0-36.0) g/dL RDW (12.1-15.1) % Plt Count (130-400) 10^3/c mm MPV (7.4-10.4) fL Neut % (Auto) % Lymph % (Auto) % [place] % (Auto) % Eos % (Auto) % Baso % (Auto) % Neut # (Auto) (1.8-7.7) 10^3/u L Lymph # (Auto) (0.8-4.8) 10^3/u L [place] # (Auto) (0.2-0.9) 10^3/u L Eos # (Auto) (0.0-0.8) 10^3/u L Baso # (Auto) (0.0-0.1) 10^3/u L Nucleated RBC % (a uto) % Nucleated RBCs # /100WBC Sodium (136-145) mmol/L Potassium (3.5-5.1) mmol/L Chloride (98-107) mmol/L Carbon Dioxide (22-29) mmol/L Anion Gap (5-19) BUN (6-20) mg/dL Creatinine (0.5-0.9) mg/dL GFR Calculation (90-130) mL/min Glucose (65-115) mg/dL POC Glucose 147 (70-110) mg/dL Calculated Osmolal ity (285-295) mOsm/k g Calcium (8.5-10.5) mg/dL Magnesium (1.7-2.3) mg/dL Total Bilirubin (0.15-1.2) mg/dL AST (0-32) U/L ALT (0-33) U/L Alkaline Phosphata se (35-105) IU/L Troponin T Baselin e (0-10) ng/L Troponin T 120 Min [place] 6.00 (0-10) ng/L Delta Troponin T 0 (0-10) ABS# Total Protein (6.6-8.7) g/dL Albumin (3.5-5.2) g/dL Globulin (1.3-4.6) g/dL Urine Color (Yellow) Urine Appearance (CLEAR) Urine pH (5-7) Ur Specific Gravit y (1.005-1.030) Urine Protein (Negative) Urine Glucose (UA) (Normal) Urine Ketones (Negative) Urine Blood (Negative) Urine Nitrate (Negative) Urine Bilirubin (Negative) Urine Urobilinogen (Negative) mg/dL Ur Leukocyte Colleen ase (Negative) Urine RBC (0-2) /hpf Urine WBC (0-5) /hpf Ur Squamous Epith Cells (0-5) /hpf Amorphous Sediment Urine Bacteria (NONE) /hpf Urine Mucus /hpf Urine Yeast /hpf Serum Ketones (Negative) Discharge Plan Discharge Patient Disposition: Home Clinical Impression: Fall Qualifiers: Encounter type: initial encounter Qualified Code(s): W19.XXXA - Unspecified fall, initial encounter Diabetes mellitus Qualifiers: Diabetes mellitus type: other specified (including VIKKI) Diabetes mellitus long term care pharmacist insulin use: with fci use Diabetes mellitus complication status: with other specified complication Qualified Code(s): E13.69 - Other specified diabetes mellitus with other specified complication CHI (closed head injury) Qualifiers: Encounter type: initial encounter Qualified Code(s): S09.90XA - Unspecified injury of head, initial encounter Condition: Stable Prescriptions: No Action nitroglycerin [Nitrostat] 0.4 mg tablet, sublingual 0.4 mg SUBLINGUAL PRN PRN (Reason: Chest Pain) RF: 0 diazepam [Valium] 10 mg tablet 10 mg PO BID Qty: 2 RF: 0 Tresiba FlexTouch U-200 200 unit/mL (3 mL) insulin pen 60 unit SUBCUT DAILY RF: 0 oxybutynin chloride 10 mg tablet extended release 24hr 10 mg PO DAILY RF: 0 insulin lispro [Humalog KwikPen Insulin] 100 unit/mL insulin pen 20 unit SUBCUT TID Qty: 15 RF: 3 topiramate [Topamax] 25 mg tablet 25 mg PO DAILY Qty: 120 RF: 1 (DME) ReliOn Prime Test Strips Strip See Rx Instructions .ROUTE .MEDSUPPLY Qty: 120 RF: 2 insulin lispro [Humalog KwikPen Insulin] 100 unit/mL Insulin Pen See Rx Instructions .ROUTE .COMPLEX RF: 0 pantoprazole [Protonix] 40 mg Tablet,Delayed Release (Dr/Ec) 40 mg PO DAILY RF: 0 trazodone 50 mg Tablet 50 mg PO BEDTIME PRN (Reason: Sleep) 30 Days Qty: 30 RF: 1 ziprasidone HCl 40 mg Capsule 40 mg PO 0700,1700 30 Days Qty: 60 RF: 1 methocarbamol [Robaxin-750] 750 mg tablet 750 mg PO Q6H Qty: 30 RF: 0 ondansetron HCl [Zofran] 8 mg Tablet 8 mg PO Q12H PRN (Reason: NAUSEA/VOMITING) RF: 0 doxepin 50 mg Capsule 100 mg PO BEDTIME 30 Days Qty: 60 RF: 2 prazosin 1 mg Capsule 3 mg PO BEDTIME 30 Days Qty: 90 RF: 2 clonidine HCl 0.1 mg Tablet 0.1 mg PO BEDTIME 30 Days Qty: 30 RF: 2 ropinirole 2 mg tablet 2 mg PO BEDTIME 30 Days Qty: 30 RF: 2 desvenlafaxine succinate [Pristiq] 100 mg Tablet Extended Release 24 Hr 100 mg PO DAILY 30 Days Qty: 30 RF: 2 chlorpromazine 50 mg Tablet 50 mg PO BID RF: 0 Discharge Orders: Discharge Order (Routine); Ordered 01/08/20 Ordered By: Juliette Isidro Referrals: Eber Garsia DO [Primary Care Provider] - Discharge Diet: Usual diet Discharge Activity: Resume usual activity Patient Instructions: Concussion/Head Injury - Adult Activity Restrictions/Additional Instructions: Follow-up with your primary care doctor. Continue regular medications. Return to the ED if new or worsening symptoms. Discharge Date/Time: 01/08/20 10:03 Coding Level of Care Code ED Environmental Journalist for Chg Fwd Exam Comprehensive Documented by User: Juliette Isidro MD 01/09/20 06:15 HPI - Fall General: Chief Complaint: Fall Stated Complaint: FALL Time Seen by Provider: 01/08/20 05:55 PFSH ED PFSH: Medical History Bilateral primary osteoarthritis of hip Chronic back pain Congestive heart failure Diabetes mellitus H/O Belkys-Valenzuela syndrome MONTANO (nonalcoholic steatohepatitis) Suicidal behavior Surgical History H/O cervical spine surgery H/O colonoscopy History of esophagogastroduodenoscopy Social History Smoking and tobacco status: current every day smoker cigarettes Packs smoked per day: 0.5 Alcohol intake: never History of recent travel: No Course ED course: I assumed care of this patient from Dr. Salinas. She had fallen at home which she said happens sometimes when her legs give out. She is not concerned about the cause of the fall. She is mostly concerned about her head because she has a severe left-sided headache. CT of her head was negative. She also was noted to be hyperglycemic with a glucose over 300. When I told her that she laughed and said that is actually pretty good for her. She was able to ambulate in the ED and was discharged home. Vital Signs: Vital signs: Vital Signs Temperature 98 F 01/08/20 05:41 Pulse Rate 93 01/08/20 10:03 Respiratory Rate 18 01/08/20 10:03 Blood Pressure 125/76 01/08/20 10:03 Pulse Oximetry 99 01/08/20 10:03 MDM - Fall Lab Data: Labs: Lab Results 01/08/20 01/08/20 01/08/20 Range/Units 06:10 06:10 06:10 WBC 5.4 (4.0-10.0) 10^3/ uL RBC 4.11 (4.1-5.3) 10^6/u L Hgb 11.4 L (11.5-15.3) g/dL Hct 34.1 L (37.0-47.0) % MCV 83.0 (81-99) fL MCH 27.7 L (28.0-34.0) pg MCHC 33.4 (30.0-36.0) g/dL RDW 16.7 H (12.1-15.1) % Plt Count 119 L (130-400) 10^3/c mm MPV 8.9 (7.4-10.4) fL Neut % (Auto) 62.7 % Lymph % (Auto) 28.9 % [place] % (Auto) 6.3 % Eos % (Auto) 1.7 % Baso % (Auto) 0.4 % Neut # (Auto) 3.41 (1.8-7.7) 10^3/u L Lymph # (Auto) 1.6 (0.8-4.8) 10^3/u L [place] # (Auto) 0.3 (0.2-0.9) 10^3/u L Eos # (Auto) 0.1 (0.0-0.8) 10^3/u L Baso # (Auto) 0.0 (0.0-0.1) 10^3/u L Nucleated RBC % (a uto) 0 % Nucleated RBCs # 0.0 /100WBC Sodium 139 (136-145) mmol/L Potassium 3.5 (3.5-5.1) mmol/L Chloride 105 (98-107) mmol/L Carbon Dioxide 20 L (22-29) mmol/L Anion Gap 17.5 (5-19) BUN 7 (6-20) mg/dL Creatinine 0.4 L (0.5-0.9) mg/dL GFR Calculation 167.6 H (90-130) mL/min Glucose 360 H (65-115) mg/dL POC Glucose (70-110) mg/dL Calculated Osmolal ity 301 H (285-295) mOsm/k g Calcium 9.4 (8.5-10.5) mg/dL Magnesium 1.6 L (1.7-2.3) mg/dL Total Bilirubin 0.4 (0.15-1.2) mg/dL AST 40 H (0-32) U/L ALT 33 (0-33) U/L Alkaline Phosphata se 141 H (35-105) IU/L Troponin T Baselin e 6 (0-10) ng/L Troponin T 120 Min [place] (0-10) ng/L Delta Troponin T (0-10) ABS# Total Protein 6.1 L (6.6-8.7) g/dL Albumin 3.8 (3.5-5.2) g/dL Globulin 2.3 (1.3-4.6) g/dL Urine Color (Yellow) Urine Appearance (CLEAR) Urine pH (5-7) Ur Specific Gravit y (1.005-1.030) Urine Protein (Negative) Urine Glucose (UA) (Normal) Urine Ketones (Negative) Urine Blood (Negative) Urine Nitrate (Negative) Urine Bilirubin (Negative) Urine Urobilinogen (Negative) mg/dL Ur Leukocyte Colleen ase (Negative) Urine RBC (0-2) /hpf Urine WBC (0-5) /hpf Ur Squamous Epith Cells (0-5) /hpf Amorphous Sediment Urine Bacteria (NONE) /hpf Urine Mucus /hpf Urine Yeast /hpf Serum Ketones (Negative) 01/08/20 01/08/20 01/08/20 Range/Units 06:10 06:24 06:35 WBC (4.0-10.0) 10^3/ uL RBC (4.1-5.3) 10^6/u L Hgb (11.5-15.3) g/dL Hct (37.0-47.0) % MCV (81-99) fL MCH (28.0-34.0) pg MCHC (30.0-36.0) g/dL RDW (12.1-15.1) % Plt Count (130-400) 10^3/c mm MPV (7.4-10.4) fL Neut % (Auto) % Lymph % (Auto) % [place] % (Auto) % Eos % (Auto) % Baso % (Auto) % Neut # (Auto) (1.8-7.7) 10^3/u L Lymph # (Auto) (0.8-4.8) 10^3/u L [place] # (Auto) (0.2-0.9) 10^3/u L Eos # (Auto) (0.0-0.8) 10^3/u L Baso # (Auto) (0.0-0.1) 10^3/u L Nucleated RBC % (a uto) % Nucleated RBCs # /100WBC Sodium (136-145) mmol/L Potassium (3.5-5.1) mmol/L Chloride (98-107) mmol/L Carbon Dioxide (22-29) mmol/L Anion Gap (5-19) BUN (6-20) mg/dL Creatinine (0.5-0.9) mg/dL GFR Calculation (90-130) mL/min Glucose (65-115) mg/dL POC Glucose 320 (70-110) mg/dL Calculated Osmolal ity (285-295) mOsm/k g Calcium (8.5-10.5) mg/dL Magnesium (1.7-2.3) mg/dL Total Bilirubin (0.15-1.2) mg/dL AST (0-32) U/L ALT (0-33) U/L Alkaline Phosphata se (35-105) IU/L Troponin T Baselin e (0-10) ng/L Troponin T 120 Min [place] (0-10) ng/L Delta Troponin T (0-10) ABS# Total Protein (6.6-8.7) g/dL Albumin (3.5-5.2) g/dL Globulin (1.3-4.6) g/dL Urine Color Yellow (Yellow) Urine Appearance Sl hazy (CLEAR) Urine pH 5 (5-7) Ur Specific Gravit y 1.020 (1.005-1.030) Urine Protein Neg (Negative) Urine Glucose (UA) 4+ H (Normal) Urine Ketones 1+ H (Negative) Urine Blood Neg (Negative) Urine Nitrate Negative (Negative) Urine Bilirubin Neg (Negative) Urine Urobilinogen 1 H (Negative) mg/dL Ur Leukocyte Colleen ase Negative (Negative) Urine RBC 0-4 H (0-2) /hpf Urine WBC 5-10 H (0-5) /hpf Ur Squamous Epith Cells 5-10 H (0-5) /hpf Amorphous Sediment Not Reportable Urine Bacteria 1+ H (NONE) /hpf Urine Mucus Trace /hpf Urine Yeast 1+ H /hpf Serum Ketones Negative (Negative) 10/01/20 10/01/20 Range/Units 08:15 08:37 WBC (4.0-10.0) 10^3/ uL RBC (4.1-5.3) 10^6/u L Hgb (11.5-15.3) g/dL Hct (37.0-47.0) % MCV (81-99) fL MCH (28.0-34.0) pg MCHC (30.0-36.0) g/dL RDW (12.1-15.1) % Plt Count (130-400) 10^3/c mm MPV (7.4-10.4) fL Neut % (Auto) % Lymph % (Auto) % [place] % (Auto) % Eos % (Auto) % Baso % (Auto) % Neut # (Auto) (1.8-7.7) 10^3/u L Lymph # (Auto) (0.8-4.8) 10^3/u L [place] # (Auto) (0.2-0.9) 10^3/u L Eos # (Auto) (0.0-0.8) 10^3/u L Baso # (Auto) (0.0-0.1) 10^3/u L Nucleated RBC % (a uto) % Nucleated RBCs # /100WBC Sodium (136-145) mmol/L Potassium (3.5-5.1) mmol/L Chloride (98-107) mmol/L Carbon Dioxide (22-29) mmol/L Anion Gap (5-19) BUN (6-20) mg/dL Creatinine (0.5-0.9) mg/dL GFR Calculation (90-130) mL/min Glucose (65-115) mg/dL POC Glucose 147 (70-110) mg/dL Calculated Osmolal ity (285-295) mOsm/k g Calcium (8.5-10.5) mg/dL Magnesium (1.7-2.3) mg/dL Total Bilirubin (0.15-1.2) mg/dL AST (0-32) U/L ALT (0-33) U/L Alkaline Phosphata se (35-105) IU/L Troponin T Baselin e (0-10) ng/L Troponin T 120 [address] [place] 6.00 (0-10) ng/L Delta Troponin T 0 (0-10) ABS# Total Protein (6.6-8.7) g/dL Albumin (3.5-5.2) g/dL Globulin (1.3-4.6) g/dL Urine Color (Yellow) Urine Appearance (CLEAR) Urine pH (5-7) Ur Specific Gravit y (1.005-1.030) Urine Protein (Negative) Urine Glucose (UA) (Normal) Urine Ketones (Negative) Urine Blood (Negative) Urine Nitrate (Negative) Urine Bilirubin (Negative) Urine Urobilinogen (Negative) mg/dL Ur Leukocyte Colleen ase (Negative) Urine RBC (0-2) /hpf Urine WBC (0-5) /hpf Ur Squamous Epith Cells (0-5) /hpf Amorphous Sediment Urine Bacteria (NONE) /hpf Urine Mucus /hpf Urine Yeast /hpf Serum Ketones (Negative) Discharge Plan Discharge Patient Disposition: Home Clinical Impression: Fall Qualifiers: Encounter type: initial encounter Qualified Code(s): W19.XXXA - Unspecified fall, initial encounter Diabetes mellitus Qualifiers: Diabetes mellitus type: other specified (including VIKKI) Diabetes mellitus long term care pharmacist insulin use: with fci use Diabetes mellitus complication status: with other specified complication Qualified Code(s): E13.69 - Other specified diabetes mellitus with other specified complication CHI (closed head injury) Qualifiers: Encounter type: initial encounter Qualified Code(s): S09.90XA - Unspecified in jury of head, initial encounter Condition: Stable Prescriptions: No Action nitroglycerin [Nitrostat] 0.4 mg tablet, sublingual 0.4 mg SUBLINGUAL PRN PRN (Reason: Chest Pain) RF: 0 diazepam [Valium] 10 mg tablet 10 mg PO BID Qty: 2 RF: 0 Tresiba FlexTouch U-200 200 unit/mL (3 mL) insulin pen 60 unit SUBCUT DAILY RF: 0 oxybutynin chloride 10 mg tablet extended release 24hr 10 mg PO DAILY RF: 0 insulin lispro [Humalog KwikPen Insulin] 100 unit/mL insulin pen 20 unit SUBCUT TID Qty: 15 RF: 3 topiramate [Topamax] 25 mg tablet 25 mg PO DAILY Qty: 120 RF: 1 (DME) [employer] Prime Test Strips Strip See Rx Instructions .ROUTE .MEDSUPPLY Qty: 120 RF: 2 insulin lispro [Humalog KwikPen Insulin] 100 unit/mL Insulin Pen See Rx Instructions .ROUTE .COMPLEX RF: 0 pantoprazole [Protonix] 40 mg Tablet,Delayed Release (Dr/Ec) 40 mg PO DAILY RF: 0 trazodone 50 mg Tablet 50 mg PO BEDTIME PRN (Reason: Sleep) 30 Days Qty: 30 RF: 1 ziprasidone HCl 40 mg Capsule 40 mg PO 0700,1700 30 Days Qty: 60 RF: 1 methocarbamol [Robaxin-750] 750 mg tablet 750 mg PO Q6H Qty: 30 RF: 0 ondansetron HCl [Zofran] 8 mg Tablet 8 mg PO Q12H PRN (Reason: NAUSEA/VOMITING) RF: 0 doxepin 50 mg Capsule 100 mg PO BEDTIME 30 Days Qty: 60 RF: 2 prazosin 1 mg Capsule 3 mg PO BEDTIME 30 Days Qty: 90 RF: 2 clonidine HCl 0.1 mg Tablet 0.1 mg PO BEDTIME 30 Days Qty: 30 RF: 2 ropinirole 2 mg tablet 2 mg PO BEDTIME 30 Days Qty: 30 RF: 2 desvenlafaxine succinate [Pristiq] 100 mg Tablet Extended Release 24 Hr 100 mg PO DAILY 30 Days Qty: 30 RF: 2 chlorpromazine 50 mg Tablet 50 mg PO BID RF: 0 Discharge Orders: Discharge Order (Routine); Ordered 01/08/20 Ordered By: Juliette Isidro Referrals: Eber Garsia DO [Primary Care Provider] - Discharge Diet: Usual diet Discharge Activity: Resume usual activity Patient Instructions: Concussion/Head Injury - Adult Activity Restrictions/Additional Instructions: Follow-up with your primary care doctor. Continue regular medications. Return to the ED if new or worsening symptoms. Discharge Date/Time: 01/08/20 10:03 Coding Level of Care Code ED Environmental Journalist for Rober Arellano Exam Comprehensive
--- NOTE | 2020-01-08 05:52 | ECG_ITS ---
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 Measurements Intervals [place] Rate: 99 P: 68 UT: 166 QRS: 67 QRSD: 85 T: 56 QT: 343 QTc: 442 Interpretive Statements SINUS RHYTHM NONSPECIFIC T-WAVE ABNORMALITY Compared to ECG 10/17/2019 18:11:08 T-wave abnormality now present Electronically Signed On 01-08-2020 19:21:47 CDT by Tom Ford M.D. [id number]
[2020-01-08] MEDS: ondansetron 2 mg/ML SDV 2 mL 4 MG IVP (06:10)
[2020-01-08] MEDS: sodium chloride 0.9% 1,000 ML 100 ML IV (06:13)
[2020-01-08 06:16] LABS: Basophils % 0.4 %; Eosinophils # 0.1 10^3/uL (0.0-0.8); Eosinophils % 1.7 %; Hematocrit 34.1 % (37.0-47.0); Hemoglobin 11.4 g/dL (11.5-15.3); Lymphocytes # 1.6 10^3/uL (0.8-4.8); Lymphocytes % 28.9 %; Mean Corpuscular HGB Conc 33.4 g/dL (30.0-36.0); Mean Corpuscular Hemoglobin 27.7 pg (28.0-34.0); Mean Platelet Volume 8.9 fL (7.4-10.4); Monocytes # 0.3 10^3/uL (0.2-0.9); Monocytes % 6.3 %; Neutrophils # 3.41 10^3/uL (1.8-7.7); Neutrophils % 62.7 %; Nucleated Red Blood Cells % 0 %; Platelet Count 119 10^3/cmm (130-400); Red Blood Count 4.11 10^6/uL (4.1-5.3); Red Cell Distribution Width 16.7 % (12.1-15.1); White Blood Count 5.4 10^3/uL (4.0-10.0)
[2020-01-08 06:26] LABS: Glucose Point of Care 320 mg/dL (70-110)
[2020-01-08 06:36] LABS: Alanine Aminotransferase 33 U/L (0-33); Albumin Level 3.8 g/dL (3.5-5.2); Alkaline Phosphatase 141 IU/L (35-105); Anion Gap 17.5 (5-19); Aspartate Amino Transferase 40 U/L (0-32); Blood Urea Nitrogen 7 mg/dL (6-20); Calcium 9.4 mg/dL (8.5-10.5); Carbon Dioxide 20 mmol/L (22-29); Chloride 105 mmol/L (98-107); Globulin 2.3 g/dL (1.3-4.6); Glomerular Filtration Rate 167.6 mL/min (90-130); Glucose 360 mg/dL (65-115); Magnesium 1.6 mg/dL (1.7-2.3); Osmolality Calculated 301 mOsm/kg (285-295); Potassium 3.5 mmol/L (3.5-5.1); Sodium 139 mmol/L (136-145); Total Bilirubin 0.4 mg/dL (0.15-1.2); Total Protein 6.1 g/dL (6.6-8.7)
[2020-01-08 06:37] LABS: Troponin(5th) Baseline 6 ng/L (0-10)
[2020-01-08 07:03] LABS: Bilirubin Urine Neg (Negative); Blood Urine Neg (Negative); Glucose Urine UA 4+ (Normal); Ketones Urine 1+ (Negative); Leukocyte Esterase Urine Negative (Negative); Nitrate Urine Negative (Negative); Protein Urine Neg (Negative); Urine Appearance SL Hazy (CLEAR); Urine Color Yellow (Yellow); Urobilinogen Urine 1 mg/dL (Negative); pH Urine 5 (5-7)
[2020-01-08 07:04] LABS: RBC Urine 0-4 /hpf (0-2)
[2020-01-08 07:05] LABS: Add Urine Culture? No; Bacteria Urine 1+ /hpf; Mucus Urine TRACE /hpf
[2020-01-08] MEDS: sodium chloride 0.9% 1,000 ML 999 ML IV (07:21)
[2020-01-08] MEDS: insulin regular-human 100 units/1 mL 10 UNIT IVP (07:21)
[2020-01-08 07:39] LABS: Ketone (Acetest) Serum Negative (Negative)
--- NOTE | 2020-01-08 07:52 | ECG_ITS ---
[facility] Test Date: 2020-01-08 Pat Name: Kay Calles Department: Room: Gender: Female Graphic Art Technician: : 1965 Requested By: Janelle Gordon Order Number: [id number] Parker MD: Tom Ford M.D. Measurements Intervals [place] Rate: 99 P: 70 DC: 174 QRS: 75 QRSD: 90 T: 60 QT: 326 QTc: 419 Interpretive Statements SINUS RHYTHM NONSPECIFIC ST & T-WAVE ABNORMALITY Compared to ECG 01/08/2020 06:09:50 No significant changes Electronically Signed On 01-08-2020 19:27:10 CDT by Tom Ford M.D. [id number]
[2020-01-08] MEDS: ketorolac 30 mg/mL INJ 15 MG IVP (08:35)
[2020-01-08 08:46] LABS: Glucose Point of Care 147 mg/dL (70-110)
[2020-01-08 08:59] LABS: Troponin 5 2HR Delta 0 ABS# (0-10)
== END 2020-01-08 10:03 | disposition home or self-care (01) ==
PROVIDERS: Emergency Medicine; Emergency Provider Emergency Medicine; PCP Internal Medicine
DX: S09.8XXA Other specified injuries of head, initial encounter (principal); E13.69 Other specified diabetes mellitus with other specified complication; Z79.4 Long term (current) use of insulin; W19.XXXA Unspecified fall, initial encounter; I50.9 Heart failure, unspecified; F17.210 Nicotine dependence, cigarettes, uncomplicated
CPT/HCPCS: 12345; 36415; 36416; 70450; 71045; 80053; 81001; 82009; 82962; 83735; 84484; 85025; 93005; 96361; 96374; 96375; 99283; 99284; J1815; J1885; J2405; J7030

== ENCOUNTER 2020-02-05 12:54 | Inpatient (IN) | payer MEDICARE, MEDICAID, SELFPAY ==
[2020-02-05] VITALS (8 sets, daily range): BP systolic 99–134; BP diastolic 70–80; PULSE 87–106; RESP 16–20; TEMP 36.9–37.6; O2SAT 96–99; BMI 35.2
[2020-02-05 14:52] LABS: INR 1.02 (0.8-1.2); Lactate (Lactic Acid level) 1.3 mmol/L (0.5-2.2)
[2020-02-05 14:53] LABS: Basophils % 0.5 %; Eosinophils # 0.1 10^3/uL (0.0-0.8); Hematocrit 28.9 % (37.0-47.0); Hemoglobin 9.2 g/dL (11.5-15.3); Lymphocytes # 1.2 10^3/uL (0.8-4.8); Lymphocytes % 21.9 %; Mean Corpuscular HGB Conc 31.8 g/dL (30.0-36.0); Mean Corpuscular Hemoglobin 24.8 pg (28.0-34.0); Mean Corpuscular Volume 77.9 fL (81-99); Mean Platelet Volume 10.2 fL (7.4-10.4); Monocytes # 0.4 10^3/uL (0.2-0.9); Monocytes % 6.9 %; Neutrophils # 3.78 10^3/uL (1.8-7.7); Neutrophils % 68.5 %; Nucleated Red Blood Cells % 0 %; Platelet Count 142 10^3/cmm (130-400); Red Blood Count 3.71 10^6/uL (4.1-5.3); Red Cell Distribution Width 13.9 % (12.1-15.1); White Blood Count 5.5 10^3/uL (4.0-10.0)
[2020-02-05 14:56] LABS: Alanine Aminotransferase 15 U/L (0-33); Albumin Level 3.8 g/dL (3.5-5.2); Alkaline Phosphatase 161 IU/L (35-105); Anion Gap 12.1 (5-19); Aspartate Amino Transferase 16 U/L (0-32); Blood Urea Nitrogen 6 mg/dL (6-20); Calcium 9.3 mg/dL (8.5-10.5); Carbon Dioxide 24 mmol/L (22-29); Chloride 100 mmol/L (98-107); Globulin 2.5 g/dL (1.3-4.6); Glucose 352 mg/dL (65-115); Lipase 43 U/L (13-60); Osmolality Calculated 286 mOsm/kg (285-295); Potassium 4.1 mmol/L (3.5-5.1); Sodium 132 mmol/L (136-145); Total Bilirubin 0.7 mg/dL (0.15-1.2); Total Protein 6.3 g/dL (6.6-8.7)
--- NOTE | 2020-02-05 15:02 | ED_ITS ---
HPI - GI Bleed General: Chief complaint: GI Bleed Stated complaint: LOW IRON Time Seen by Provider: 02/05/20 14:36 History of Present Illness: HPI Narrative: 54-year-old female presents emergency room complaining of anemia. She had dark tarry stools as well as bright red blood per rectum intermittently over the last few weeks she is also had a couple of bloody emesis this morning. She has been lightheaded weak and dizzy and has significant myalgias. MD complaint: blood streaked emesis and melena Onset (ago): week(s) Pain Consistency: intermittent Severity: mild Relieving factors: none Exacerbating factors: none Context: history of GI bleed and liver disease (Hepatosteatosis) Associated symptoms: Reports chills, easy bruising, malaise, nausea, poor appetite, vomiting and weakness; Denies abdominal pain, epistaxis, fever(s), headache(s), other bleeding, rash or syncope Treatments Prior to Arrival: none Review of Systems Const: Reports: chills and malaise; Denies: fever(s) ENMT: Denies: epistaxis Card: Denies: syncope GI: Reports: nausea and vomiting; Denies: abdominal pain Skin/Breast: Denies: rash Neuro: Denies: headache(s) Girma/Lymph: Reports: easy bruising PFS ED PFSH: Medical History (Updated 02/07/20 @ 00:02 by ) Bilateral primary osteoarthritis of hip Chronic back pain Congestive heart failure Diabetes mellitus H/O Belkys-Valenzuela syndrome (~07/2019) EGD at [facility]. EGD 10/26 negative. MONTANO (nonalcoholic steatohepatitis) Suicidal behavior Surgical History H/O cervical spine surgery H/O colonoscopy History of esophagogastroduodenoscopy Social History Smoking and tobacco status: current every day smoker cigarettes Packs smoked per day: 0.5 Alcohol intake: never History of recent travel: No Physical Exam Const: COMMON NORMALS: no acute distress GENERAL APPEARANCE: cooperative and comfortable ORIENTATION/CONSCIOUSNESS: Yes awake, Yes oriented to person, Yes oriented to place and Yes oriented to time HENMT: COMMON NORMALS: normocephalic, atraumatic and hearing grossly normal bilaterally HEAD & SCALP: normocephalic and atraumatic Neck/C-Spine: COMMON NORMALS: no JVD Resp: COMMON NORMALS: normal respiratory effort, No retractions, No use of accessory muscles and clear to auscultation bilaterally AUSCULTATION: clear to auscultation bilaterally Cardio: COMMON NORMALS: no JVD, regular rate, regular rhythm and No murmurs present (Cardio) RATE: regular rate RHYTHM: regular rhythm GI: COMMON NORMALS: Soft to palpation and No hepatosplenomegaly present AUSCULTATION: Yes normoactive bowel sounds PALPATION: Yes Soft to palpation, Yes Tenderness to palpation present (GI) (Diffuse tenderness no guarding or rebound no peritoneal signs), No Guarding due to palpation present (GI) and Yes No hepatosplenomegaly present Extremity: COMMON NORMALS: normal to inspection, capillary refill normal, no clubbing, cyanosis or edema, no calf tenderness and no pedal edema Neuro: SENSORIUM/ORIENTATION: Yes oriented to person, Yes oriented to place and Yes oriented to time Skin: COMMON NORMALS: no rashes or lesions noted GENERAL SKIN EXAM: no rashes or lesions noted Course Vital Signs: Vital signs: Vital Signs Temperature 99.2 F 02/06/20 18:17 Pulse Rate 91 02/06/20 18:17 Respiratory Rate 20 H 02/06/20 18:17 Blood Pressure 111/69 02/06/20 18:17 Pulse Oximetry 98 02/06/20 18:17 MDM - GI Bleed MDM Narrative: Medical decision making narrative: Needs to be monitored for acute GI bleed monitor hemoglobin discussed hospitalist orders are written Lab Data: Labs: Lab Results 02/05/20 02/05/20 02/05/20 Range/Units 14:28 14:28 14:28 WBC 5.5 (4.0-10.0) 10^3/ uL RBC 3.71 L (4.1-5.3) 10^6/u L Hgb 9.2 L (11.5-15.3) g/dL Hct 28.9 L (37.0-47.0) % MCV 77.9 L (81-99) fL MCH 24.8 L (28.0-34.0) pg MCHC 31.8 (30.0-36.0) g/dL RDW 13.9 (12.1-15.1) % Plt Count 142 (130-400) 10^3/c mm MPV 10.2 (7.4-10.4) fL Neut % (Auto) 68.5 % Lymph % (Auto) 21.9 % Barrow % (Auto) 6.9 % Eos % (Auto) 2.0 % Baso % (Auto) 0.5 % Neut # (Auto) 3.78 (1.8-7.7) 10^3/u L Lymph # (Auto) 1.2 (0.8-4.8) 10^3/u L Barrow # (Auto) 0.4 (0.2-0.9) 10^3/u L Eos # (Auto) 0.1 (0.0-0.8) 10^3/u L Baso # (Auto) 0.0 (0.0-0.1) 10^3/u L Nucleated RBC % (a uto) 0 % Nucleated RBCs # 0.0 /100WBC PT (12.1-14.9) SECO NDS INR (0.8-1.2) Sodium 132 L (136-145) mmol/L Potassium 4.1 (3.5-5.1) mmol/L Chloride 100 (98-107) mmol/L Carbon Dioxide 24 (22-29) mmol/L Anion Gap 12.1 (5-19) BUN 6 (6-20) mg/dL Creatinine 0.6 (0.5-0.9) mg/dL GFR Calculation 105.0 (90-130) mL/min Glucose 352 H (65-115) mg/dL POC Glucose (70-110) mg/dL Calculated Osmolal ity 286 (285-295) mOsm/k g Lactate 1.3 (0.5-2.2) mmol/L Calcium 9.3 (8.5-10.5) mg/dL Total Bilirubin 0.7 (0.15-1.2) mg/dL AST 16 (0-32) U/L ALT 15 (0-33) U/L Alkaline Phosphata se 161 H (35-105) IU/L Total Protein 6.3 L (6.6-8.7) g/dL Albumin 3.8 (3.5-5.2) g/dL Globulin 2.5 (1.3-4.6) g/dL Lipase 43 (13-60) U/L Urine Color (Yellow) Urine Appearance (CLEAR) Urine pH (5-7) Ur Specific Gravit y (1.005-1.030) Urine Protein (Negative) Urine Glucose (UA) (Normal) Urine Ketones (Negative) Urine Blood (Negative) Urine Nitrate (Negative) Urine Bilirubin (Negative) Urine Urobilinogen (Negative) mg/dL Ur Leukocyte Colleen ase (Negative) SARS-CoV-2 Ag (Rap id) (Negative) 02/05/20 02/05/20 02/05/20 Range/Units 14:28 15:23 15:24 WBC (4.0-10.0) 10^3/ uL RBC (4.1-5.3) 10^6/u L Hgb (11.5-15.3) g/dL Hct (37.0-47.0) % MCV (81-99) fL MCH (28.0-34.0) pg MCHC (30.0-36.0) g/dL RDW (12.1-15.1) % Plt Count (130-400) 10^3/c mm MPV (7.4-10.4) fL Neut % (Auto) % Lymph % (Auto) % Barrow % (Auto) % Eos % (Auto) % Baso % (Auto) % Neut # (Auto) (1.8-7.7) 10^3/u L Lymph # (Auto) (0.8-4.8) 10^3/u L Barrow # (Auto) (0.2-0.9) 10^3/u L Eos # (Auto) (0.0-0.8) 10^3/u L Baso # (Auto) (0.0-0.1) 10^3/u L Nucleated RBC % (a uto) % Nucleated RBCs # /100WBC PT 13.70 (12.1-14.9) SECO NDS INR 1.02 (0.8-1.2) Sodium (136-145) mmol/L Potassium (3.5-5.1) mmol/L Chloride (98-107) mmol/L Carbon Dioxide (22-29) mmol/L Anion Gap (5-19) BUN (6-20) mg/dL Creatinine (0.5-0.9) mg/dL GFR Calculation (90-130) mL/min Glucose (65-115) mg/dL POC Glucose (70-110) mg/dL Calculated Osmolal ity (285-295) mOsm/k g Lactate (0.5-2.2) mmol/L Calcium (8.5-10.5) mg/dL Total Bilirubin (0.15-1.2) mg/dL AST (0-32) U/L ALT (0-33) U/L Alkaline Phosphata se (35-105) IU/L Total Protein (6.6-8.7) g/dL Albumin (3.5-5.2) g/dL Globulin (1.3-4.6) g/dL Lipase (13-60) U/L Urine Color Yellow (Yellow) Urine Appearance Clear (CLEAR) Urine pH 7 (5-7) Ur Specific Gravit y 1.010 (1.005-1.030) Urine Protein Neg (Negative) Urine Glucose (UA) 4+ H (Normal) Urine Ketones Negative (Negative) Urine Blood Neg (Negative) Urine Nitrate Negative (Negative) Urine Bilirubin Neg (Negative) Urine Urobilinogen Neg (Negative) mg/dL Ur Leukocyte Colleen ase Negative (Negative) SARS-CoV-2 Ag (Rap id) Negative (Negative) 02/05/20 02/05/20 02/06/20 Range/Units 21:49 23:35 04:36 WBC 4.1 (4.0-10.0) 10^3/ uL RBC 3.29 L (4.1-5.3) 10^6/u L Hgb 8.4 L 8.1 L (11.5-15.3) g/dL Hct 26.6 L 26.1 L (37.0-47.0) % MCV 79.3 L (81-99) fL MCH 24.6 L (28.0-34.0) pg MCHC 31.0 (30.0-36.0) g/dL RDW 14.0 (12.1-15.1) % Plt Count 118 L (130-400) 10^3/c mm MPV 9.8 (7.4-10.4) fL Neut % (Auto) 57.6 % Lymph % (Auto) 29.5 % Barrow % (Auto) 8.9 % Eos % (Auto) 3.1 % Baso % (Auto) 0.7 % Neut # (Auto) 2.38 (1.8-7.7) 10^3/u L Lymph # (Auto) 1.2 (0.8-4.8) 10^3/u L Barrow # (Auto) 0.4 (0.2-0.9) 10^3/u L Eos # (Auto) 0.1 (0.0-0.8) 10^3/u L Baso # (Auto) 0.0 (0.0-0.1) 10^3/u L Nucleated RBC % (a uto) 0 % Nucleated RBCs # 0.0 /100WBC PT (12.1-14.9) SECO NDS INR (0.8-1.2) Sodium (136-145) mmol/L Potassium (3.5-5.1) mmol/L Chloride (98-107) mmol/L Carbon Dioxide (22-29) mmol/L Anion Gap (5-19) BUN (6-20) mg/dL Creatinine (0.5-0.9) mg/dL GFR Calculation (90-130) mL/min Glucose (65-115) mg/dL POC Glucose 299 (70-110) mg/dL Calculated Osmolal ity (285-295) mOsm/k g Lactate (0.5-2.2) mmol/L Calcium (8.5-10.5) mg/dL Total Bilirubin (0.15-1.2) mg/dL AST (0-32) U/L ALT (0-33) U/L Alkaline Phosphata se (35-105) IU/L Total Protein (6.6-8.7) g/dL Albumin (3.5-5.2) g/dL Globulin (1.3-4.6) g/dL Lipase (13-60) U/L Urine Color (Yellow) Urine Appearance (CLEAR) Urine pH (5-7) Ur Specific Gravit y (1.005-1.030) Urine Protein (Negative) Urine Glucose (UA) (Normal) Urine Ketones (Negative) Urine Blood (Negative) Urine Nitrate (Negative) Urine Bilirubin (Negative) Urine Urobilinogen (Negative) mg/dL Ur Leukocyte Colleen ase (Negative) SARS-CoV-2 Ag (Rap id) (Negative) 02/06/20 Range/Units 04:36 WBC (4.0-10.0) 10^3/ uL RBC (4.1-5.3) 10^6/u L Hgb (11.5-15.3) g/dL Hct (37.0-47.0) % MCV (81-99) fL MCH (28.0-34.0) pg MCHC (30.0-36.0) g/dL RDW (12.1-15.1) % Plt Count (130-400) 10^3/c mm MPV (7.4-10.4) fL Neut % (Auto) % Lymph % (Auto) % Barrow % (Auto) % Eos % (Auto) % Baso % (Auto) % Neut # (Auto) (1.8-7.7) 10^3/u L Lymph # (Auto) (0.8-4.8) 10^3/u L Barrow # (Auto) (0.2-0.9) 10^3/u L Eos # (Auto) (0.0-0.8) 10^3/u L Baso # (Auto) (0.0-0.1) 10^3/u L Nucleated RBC % (a uto) % Nucleated RBCs # /100WBC PT (12.1-14.9) SECO NDS INR (0.8-1.2) Sodium 137 (136-145) mmol/L Potassium 3.5 (3.5-5.1) mmol/L Chloride 104 (98-107) mmol/L Carbon Dioxide 23 (22-29) mmol/L Anion Gap 13.5 (5-19) BUN 6 (6-20) mg/dL Creatinine 0.4 L (0.5-0.9) mg/dL GFR Calculation 167.6 H (90-130) mL/min Glucose 268 H (65-115) mg/dL POC Glucose (70-110) mg/dL Calculated Osmolal ity 291 (285-295) mOsm/k g Lactate (0.5-2.2) mmol/L Calcium 8.4 L (8.5-10.5) mg/dL Total Bilirubin 0.7 (0.15-1.2) mg/dL AST 18 (0-32) U/L ALT 13 (0-33) U/L Alkaline Phosphata se 126 H (35-105) IU/L Total Protein 5.3 L (6.6-8.7) g/dL Albumin 3.4 L (3.5-5.2) g/dL Globulin 1.9 (1.3-4.6) g/dL Lipase (13-60) U/L Urine Color (Yellow) Urine Appearance (CLEAR) Urine pH (5-7) Ur Specific Gravit y (1.005-1.030) Urine Protein (Negative) Urine Glucose (UA) (Normal) Urine Ketones (Negative) Urine Blood (Negative) Urine Nitrate (Negative) Urine Bilirubin (Negative) Urine Urobilinogen (Negative) mg/dL Ur Leukocyte Colleen ase (Negative) SARS-CoV-2 Ag (Rap id) (Negative) Discharge Plan Discharge Patient Disposition: Placed in Observation Admit Provider: Andrea Mcmillan Clinical Impression: Acute GI bleeding, Anemia Condition: Stable Referrals: [facility] [Outside] Eber Garsia DO [Primary Care Provider] - 4-7 days (Please call Sunday to make a follow up appointment) Discharge Diet: Diabetic Discharge Activity: As per PT/OT instructions Patient Instructions: Anemia Discharge Date/Time: 02/05/20 19:21 Coding Level of Care Code ED Industrial Design Intern for Rober Fwd Exam Comprehensive
--- NOTE | 2020-02-05 15:09 | CTR_ITS ---
PROCEDURE INFORMATION: Exam: CT Abdomen And Pelvis With Contrast Exam date and time: 02/05/2020 4:40 PM Age: 54 years old Clinical indication: Abdominal pain; Generalized; Prior surgery; Surgery type: Gb, appy, hyst; Additional info: Abd pain TECHNIQUE: Imaging protocol: Computed tomography of the abdomen and pelvis with intravenous contrast. Radiation optimization: All CT scans at this facility use at least one of these dose optimization techniques: automated exposure control; mA and/or kV adjustment per patient size (includes targeted exams where dose is matched to clinical indication); or iterative reconstruction. Contrast material: OMNI 300; Contrast volume: 95 ml; Contrast route: INTRAVENOUS (IV); COMPARISON: CT chest abd pel w con* 09/16/2019 9:54 PM RADIATION DOSE METRICS: Total DLP (mGy-cm): 1247.14 FINDINGS: Liver: There is small 12 mm cyst in the inferior right lobe of the liver not changed from previous. Gallbladder and bile ducts: There has been a cholecystectomy. Pancreas: The pancreas is normal. Spleen: The spleen is normal. Adrenal glands: The adrenal glands are normal. Kidneys and ureters: The kidneys are normal. Stomach and bowel: There is no evidence of colitis/diverticulitis. Appendix: Not identified Intraperitoneal space: There is no evidence of free intraperitoneal fluid. Vasculature: The aorta demonstrates mild atherosclerotic calcification. Lymph nodes: Unremarkable. No enlarged lymph nodes. Urinary bladder: Unremarkable as visualized. Reproductive: There has been a hysterectomy. Bones/joints: There is degenerative change in the lower lumbar spine. Soft tissues: Unremarkable. CT/CT abdomen pelvis w con* [id number] IMPRESSION: No acute findings. Radiation Dose CTDIVOL = (mGy): DLP = 1247.14 (mGy-cm)
[2020-02-05 15:33] LABS: Add Urine Microscopic? NO
[2020-02-05 15:46] LABS: Bilirubin Urine Neg (Negative); Blood Urine Neg (Negative); Glucose Urine UA 4+ (Normal); Ketones Urine Negative (Negative); Leukocyte Esterase Urine Negative (Negative); Nitrate Urine Negative (Negative); Protein Urine Neg (Negative); Urine Appearance Clear (CLEAR); Urine Color Yellow (Yellow); Urobilinogen Urine Neg (Negative); pH Urine 7 (5-7)
[2020-02-05 15:54] LABS: SARS Covid-2 Antigen Negative (Negative)
[2020-02-05] MEDS: iohexol 300 mg/mL 100 mL Btl IV (16:53)
--- NOTE | 2020-02-05 18:05 | PC.NURSE ---
Requesting pain meds.
[2020-02-05] MEDS: pantoprazole 40 mg SDV 80 MG IVP (18:13)
[2020-02-05] MEDS: morphine 4 mg/mL SDV 1 mL 2 MG IVP (20:49)
[2020-02-05] MEDS: D5-NS 0.45% + KCL 20 mEq 20 MEQ/1,000 ML BAG 100 MEQ IV (20:51)
--- NOTE | 2020-02-05 21:22 | PC.NURSE ---
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
--- NOTE | 2020-02-05 21:38 | PC.NURSE ---
Patient has a BM once every three days when she is eating.
[2020-02-05 22:05] LABS: Glucose Point of Care 299 mg/dL (70-110)
--- NOTE | 2020-02-05 23:06 | P.HP_ITS ---
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 Upon arrival to emergency room her laboratory workup showed WBC of 5.5, hemoglobin at 9.2, hematocrit 28.9 and a platelet count of 142. INR 1.02. Sodium 132, potassium 4.1, chloride 100, bicarb 24, BUN 6 and creatinine is 0.6. Glucose was elevated at 352. C OVID-19 PCR was negative. Review of Systems General: Reports: 10 or more systems reviewed and unremarkable except in HPI and below Medications/Allergies Home Medications Medication Instructions Recorded Confirmed Last Taken Type nitroglycerin 0.4 mg sublingual 0.4 mg SUBLINGUAL PRN PRN 04/28/19 02/05/20 Unknown History tablet insulin lispro [Humalog KwikPen See Rx Instructions .ROUTE .COMPLEX 07/09/19 02/05/20 02/04/20 History Insulin] ondansetron HCl [Zofran] 8 mg PO Q12H PRN 09/16/19 02/05/20 02/04/20 History clonidine HCl 0.1 mg PO BEDTIME 30 Days #30 tab 09/25/19 02/05/20 02/04/20 Rx desvenlafaxine succinate [Pristiq] 100 mg PO DAILY 30 Days #30 tab 09/25/19 02/05/20 02/04/20 Rx doxepin 100 mg PO BEDTIME 30 Days #60 cap 09/25/19 02/05/20 02/04/20 Rx prazosin 3 mg PO BEDTIME 30 Days #90 cap 09/25/19 02/05/20 02/04/20 Rx ropinirole 2 mg PO BEDTIME 30 Days #30 tab 09/25/19 02/05/20 02/04/20 Rx pantoprazole [Protonix] 40 mg PO DAILY 10/02/19 02/05/20 02/04/20 History trazodone 50 mg PO BEDTIME PRN 30 Days #30 10/06/19 02/05/20 02/04/20 Rx tab ziprasidone HCl 40 mg PO 0700,1700 30 Days #60 cap 10/06/19 02/05/20 02/04/20 Rx chlorpromazine 50 mg PO BID 10/17/19 02/05/20 02/04/20 History methocarbamol [Robaxin-750] 750 mg PO Q6H #30 tab 10/26/19 02/05/20 02/04/20 Rx diazepam 10 mg tablet 10 mg PO BID #2 tab 11/13/19 02/05/20 Unknown Rx insulin degludec 200 unit/mL (3 60 unit SUBCUT DAILY ml 12/30/19 02/05/20 02/04/20 History mL) subcutaneous pen oxybutynin chloride 10 mg 10 mg PO DAILY 12/30/19 02/05/20 02/04/20 History tablet,extended release 24 hr insulin lispro 100 unit/mL 20 unit SUBCUT TID #15 ml 12/31/19 02/05/20 02/04/20 Rx subcutaneous pen ReliOn Prime Test Strips #120 each NS 01/01/20 02/05/20 Unknown Rx topiramate 25 mg tablet 25 mg PO DAILY #120 tab 01/05/20 02/05/20 02/04/20 Rx Allergies Allergy/AdvReac Type Severity Reaction Status Date / Time aspirin Allergy Unknown Unknown Verified 01/08/20 05:47 Cephalosporins Allergy Unknown Unknown Verified 01/08/20 05:47 NSAIDS (Non-Steroidal Allergy Unknown Unknown Verified 01/08/20 05:47 Anti-Inflamma sumatriptan [From Imitrex] Allergy Unknown Unknown Verified 01/08/20 05:47 acetaminophen [From Tylenol] Allergy Unknown Verified 01/08/20 05:47 ibuprofen Allergy UNKNOWN Verified 01/08/20 05:47 [From NeoProfen (ibuprofen lysn)(PF)] metoclopramide [From Reglan] Allergy ALGY-Joint Verified 01/08/20 05:47 Pain PFSH Acute PFSH: Medical History (Updated 02/05/20 @ 18:03 by Gee Huertas DO) Bilateral primary osteoarthritis of hip Chronic back pain Congestive heart failure Diabetes mellitus H/O Belkys-Valenzuela syndrome MONTANO (nonalcoholic steatohepatitis) Suicidal behavior Surgical History H/O cervical spine surgery H/O colonoscopy History of esophagogastroduodenoscopy Social History Smoking and tobacco status: current every day smoker cigarettes Packs smoked per day: 0.5 Alcohol intake: never History of recent travel: No Vitals/I&O/Wt Last Vital Signs Temp 99.2 F 02/05/20 20:15 Pulse 90 02/05/20 20:15 Resp 18 02/05/20 20:49 BP 132/78 02/05/20 19:15 Pulse Ox 96 02/05/20 20:15 02/05/20 02/05/20 02/06/20 14:59 22:59 06:59 Intake Total 100 / 100 Balance 100 / 100 Weight last 48 hrs Weight 81.647 kg Physical Exam Narrative: EXAM NARRATIVE: General : Alert, awake, oriented x 3 HEENT : Grossly unremarkable CVS: RRR, No murmur rubs or gallops CHEST: CLATBL ABD: Soft NT/ND EXT : no edema Data : 02/05/20 23:35 02/05/20 14:28 A&P Assessment and plan (1) Acute GI bleeding: Concern for UGI bleed Hb 9.2 -> 8.2 No further emesis here Protonix 40 mg IV BID Hold all NSAIDS Please consult surgery in AM Status: Acute (2) Acute blood loss anemia: As noted above Status: Acute (3) Hx of Belkys-Valenzuela syndrome: Management as noted above Status: Acute (4) MONTANO (nonalcoholic steatohepatitis): Status: Acute Attestations Medical Necessity Statement*: Due to acute blood loss anemia secondary from upper GI bleed will likely require over 2 midnight stay in hospital for evaluation and treatment. Time Spent in Patient Care: Greater than 35 minutes Coding Level of Care Code Acute Jewelry Sales Representative for Rober Fwd Diagnoses Acute GI bleeding K92.2 Acute blood loss anemia D62 Hx of Belkys-Valenzuela syndrome Z87.19 MONTANO (nonalcoholic steatohepatitis) K75.81
[2020-02-05 23:46] LABS: Hematocrit 26.6 % (37.0-47.0); Hemoglobin 8.4 g/dL (11.5-15.3)
[2020-02-06] VITALS (11 sets, daily range): BP systolic 99–140; BP diastolic 65–82; PULSE 80–99; RESP 16–20; TEMP 36.3–37.3; O2SAT 93–100
[2020-02-06] MEDS: sodium chloride 0.9% 1,000 ML 75 ML IV (00:49)
[2020-02-06] MEDS: pantoprazole 40 mg SDV IVP (00:49)
[2020-02-06] MEDS: morphine 4 mg/mL SDV 1 mL 2 MG IVP ×2 (03:22→09:26)
[2020-02-06 05:36] LABS: Basophils % 0.7 %; Eosinophils # 0.1 10^3/uL (0.0-0.8); Eosinophils % 3.1 %; Hematocrit 26.1 % (37.0-47.0); Hemoglobin 8.1 g/dL (11.5-15.3); Lymphocytes # 1.2 10^3/uL (0.8-4.8); Lymphocytes % 29.5 %; Mean Corpuscular Hemoglobin 24.6 pg (28.0-34.0); Mean Corpuscular Volume 79.3 fL (81-99); Mean Platelet Volume 9.8 fL (7.4-10.4); Monocytes # 0.4 10^3/uL (0.2-0.9); Monocytes % 8.9 %; Neutrophils # 2.38 10^3/uL (1.8-7.7); Neutrophils % 57.6 %; Nucleated Red Blood Cells % 0 %; Platelet Count 118 10^3/cmm (130-400); Red Blood Count 3.29 10^6/uL (4.1-5.3); White Blood Count 4.1 10^3/uL (4.0-10.0)
--- NOTE | 2020-02-06 06:17 | NUR.SHIFT ---
Patient mainly slept through the night.
[2020-02-06 06:32] LABS: Alanine Aminotransferase 13 U/L (0-33); Albumin Level 3.4 g/dL (3.5-5.2); Alkaline Phosphatase 126 IU/L (35-105); Anion Gap 13.5 (5-19); Aspartate Amino Transferase 18 U/L (0-32); Blood Urea Nitrogen 6 mg/dL (6-20); Calcium 8.4 mg/dL (8.5-10.5); Carbon Dioxide 23 mmol/L (22-29); Chloride 104 mmol/L (98-107); Globulin 1.9 g/dL (1.3-4.6); Glomerular Filtration Rate 167.6 mL/min (90-130); Glucose 268 mg/dL (65-115); Osmolality Calculated 291 mOsm/kg (285-295); Potassium 3.5 mmol/L (3.5-5.1); Sodium 137 mmol/L (136-145); Total Bilirubin 0.7 mg/dL (0.15-1.2); Total Protein 5.3 g/dL (6.6-8.7)
--- NOTE | 2020-02-06 08:54 | PM.PN ---
Subjective Medications: Reviewed: Yes Vitals/I&O/Wt Last Vital Signs Temp 99.0 F 02/06/20 07:42 Pulse 87 02/06/20 07:42 Resp 20 H 02/06/20 07:42 BP 99/66 02/06/20 07:42 Pulse Ox 93 02/06/20 07:42 02/05/20 02/06/20 02/06/20 22:59 06:59 14:59 Intake Total 100 / 100 398.333 / 498.333 Balance 100 / 100 398.333 / 498.333 Weight last 48 hrs Weight 81.647 kg Data : 02/06/20 04:36 02/06/20 04:36 Coding Level of Care Code Acute Wind Turbine Blade Repair Technician for Rober Arellano
[2020-02-06 10:59] LABS: Glucose Point of Care 220 mg/dL (70-110)
--- NOTE | 2020-02-06 11:38 | PC.CHAP ---
Pastoral Care Encounter/Spiritual Assessment Type of Contact [] Declined lecturer in marketing visit [] Patient/Family/Request visit [] Outpatient visit [] Follow-up visit [] Physician referral [] Code/Alert [] Routine visit [] Staff referral [] Actively dying [] Patient sleeping [] Family support [] [] Out of room [] Palliative care [] [] Receiving care in room [] Pre-surgical visit [] Trauma [] Long length of stay [] ICU visit [xx] Other: Patient being prepared for discharge later today or early in the morning. Relational/Emotional Strength [] Patient feels connected with others/family/visitors/staff [] Distress [] Loneliness/isolation [] Abandonment Spirituality of Patient [] Person of [place] [] Attends Synagogue of their [place] [] Believes in Prayer [] Reads Bible or Jew materials [] There are Spiritual issues to be addressed Instructor Physical Education Interventions [] Prayer [] Active listening [] Non-anxious presence [] Spiritual/emotional support [] Crisis/trauma care [] Spiritual counseling [] Bereavement support [] Provided bereavement packet [] Provided Bible/devotional materials [] Provided toy/stuffed animal, coloring book to patient or family member [] Provided Communion [] Anointing/[place] [] Salvation [] Completed spiritual assessment [] Other: Impact on Illness or Injury [] Angry [] Fearful [] Anxious [] Often cries [] Exhaustion [] Unable to work [] Unable to attend rastafari [] Unable to walk/stand [] Unable to read [] Unable to drive [] Unable to eat/drink [] Unable to sleep [] Unable to be with family [] Patient intubated [] Other: Summary Medical staff were preparing patient for a final test before being discharged later today or early in the morning. No Instructor Physical Education visit was conducted. Time spent with patient 2 minutes Instructor Physical Education Ericka Paris
--- NOTE | 2020-02-06 11:46 | P.CONIM_ITS ---
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 She admits to the emergency department and subsequently the hospital with a significant drop in hemoglobin and also a 4 to 5-day history of nausea vomiting with bright red blood. Soon after the hematemesis began, she also began to note some melanotic stools. She admits to epigastric pain and nausea mostly. I am consulted to explore her upper GI tract for possible exigent upper GI bleed. Review of Systems General: Reports: 10 or more systems reviewed and unremarkable except in HPI and below Meds/Allergies Home Medications and Allergies Home Medications Medication Instructions Recorded Confirmed Last Taken Type nitroglycerin 0.4 mg sublingual 0.4 mg SUBLINGUAL PRN PRN 04/28/19 02/05/20 Unknown History tablet insulin lispro [Humalog KwikPen See Rx Instructions .ROUTE .COMPLEX 07/09/19 02/05/20 02/04/20 History Insulin] ondansetron HCl [Zofran] 8 mg PO Q12H PRN 09/16/19 02/05/20 02/04/20 History clonidine HCl 0.1 mg PO BEDTIME 30 Days #30 tab 09/25/19 02/05/20 02/04/20 Rx desvenlafaxine succinate [Pristiq] 100 mg PO DAILY 30 Days #30 tab 09/25/19 02/05/20 02/04/20 Rx doxepin 100 mg PO BEDTIME 30 Days #60 cap 09/25/19 02/05/20 02/04/20 Rx prazosin 3 mg PO BEDTIME 30 Days #90 cap 09/25/19 02/05/20 02/04/20 Rx ropinirole 2 mg PO BEDTIME 30 Days #30 tab 09/25/19 02/05/20 02/04/20 Rx pantoprazole [Protonix] 40 mg PO DAILY 10/02/19 02/05/20 02/04/20 History trazodone 50 mg PO BEDTIME PRN 30 Days #30 10/06/19 02/05/20 02/04/20 Rx tab ziprasidone HCl 40 mg PO 0700,1700 30 Days #60 cap 10/06/19 02/05/20 02/04/20 Rx chlorpromazine 50 mg PO BID 10/17/19 02/05/20 02/04/20 History methocarbamol [Robaxin-750] 750 mg PO Q6H #30 tab 10/26/19 02/05/20 02/04/20 Rx diazepam 10 mg tablet 10 mg PO BID #2 tab 11/13/19 02/05/20 Unknown Rx insulin degludec 200 unit/mL (3 60 unit SUBCUT DAILY ml 12/30/19 02/05/20 02/04/20 History mL) subcutaneous pen oxybutynin chloride 10 mg 10 mg PO DAILY 12/30/19 02/05/20 02/04/20 History tablet,extended release 24 hr insulin lispro 100 unit/mL 20 unit SUBCUT TID #15 ml 12/31/19 02/05/20 02/04/20 Rx subcutaneous pen ReliOn Prime Test Strips #120 each NS 01/01/20 02/05/20 Unknown Rx topiramate 25 mg tablet 25 mg PO DAILY #120 tab 01/05/20 02/05/20 02/04/20 Rx Allergies Allergy/AdvReac Type Severity Reaction Status Date / Time aspirin Allergy Unknown Unknown Verified 01/08/20 05:47 Cephalosporins Allergy Unknown Unknown Verified 01/08/20 05:47 NSAIDS (Non-Steroidal Allergy Unknown Unknown Verified 01/08/20 05:47 Anti-Inflamma sumatriptan [From Imitrex] Allergy Unknown Unknown Verified 01/08/20 05:47 acetaminophen [From Tylenol] Allergy Unknown Verified 01/08/20 05:47 ibuprofen Allergy UNKNOWN Verified 01/08/20 05:47 [From NeoProfen (ibuprofen lysn)(PF)] metoclopramide [From Reglan] Allergy ALGY-Joint Verified 01/08/20 05:47 Pain Current Medications Current Medications Generic Name Dose Route Start Last Admin Trade Name Freq PRN Reason Stop Dose Admin Sodium Chloride 1,000 mls @ 75 mls/hr 02/05/20 23:15 02/06/20 00:49 Sodium Chloride 0.9% IV 75 mls/hr .[id number] JENS Administration Insulin Aspart 0 unit 02/06/20 08:00 02/06/20 09:26 Novolog SUBCUT 10 unit WM&BEDTIME JENS Administration Protocol Morphine Sulfate 2 mg 02/05/20 20:11 02/06/20 09:26 Morphine IVP 2 mg Q4H PRN Administration SEVERE PAIN Pantoprazole Sodium 40 mg 02/05/20 23:15 02/06/20 00:49 Protonix IVP 40 mg Q12H JENS Administration PFSH Acute PFSH: Medical History (Updated 02/06/20 @ 09:12 by Jessica Pan MD) Bilateral primary osteoarthritis of hip Chronic back pain Congestive heart failure Diabetes mellitus H/O Belkys-Valenzuela syndrome (~07/2019) EGD at [facility]. EGD 10/26 negative. MONTANO (nonalcoholic steatohepatitis) Suicidal behavior Surgical History H/O cervical spine surgery H/O colonoscopy History of esophagogastroduodenoscopy Social History Smoking and tobacco status: current every day smoker cigarettes Packs smoked per day: 0.5 Alcohol intake: never History of recent travel: No Vitals/I&O/Wt Last Vital Signs Temp 998.5 F H 02/06/20 11:15 Pulse 97 02/06/20 11:15 Resp 18 02/06/20 11:15 BP 106/65 02/06/20 11:15 Pulse Ox 95 02/06/20 11:15 02/05/20 02/06/20 02/06/20 22:59 06:59 14:59 Intake Total 100 / 100 398.333 / 498.333 Balance 100 / 100 398.333 / 498.333 Weight last 48 hrs Weight 180 lb Physical Exam Const: COMMON NORMALS: no acute distress, average body habitus, patient oriented x3, no limitations, healthy appearing, alert and well nourished Neck/C-Spine: COMMON NORMALS: no JVD Resp: COMMON NORMALS: normal respiratory effort, No retractions, No use of accessory muscles, clear to auscultation bilaterally and percussion normal AUSCULTATION: clear to auscultation bilaterally PERCUSSION: percussion normal Cardio: COMMON NORMALS: no JVD, regular rate, regular rhythm, S1 normal heart sound present, S2 normal heart sound present, No gallops present (Cardio), No clicks present (Cardio), No murmurs present (Cardio), No rub (Cardio) and Peripheral pulses 2+ throughout RATE: regular rate RHYTHM: regular rhythm HEART SOUNDS: S1 normal heart sound present and S2 normal heart sound present PERIPHERAL PULSES: Peripheral pulses 2+ throughout GI: COMMON NORMALS: Normal to inspection, nondistended, normoactive bowel sounds present AUSCULTATION: Yes normoactive bowel sounds and No Hyperactive bowel sounds present OTHER: She has a fair amount of epigastric pain. She has no peritoneal signs. Neuro: COMMON NORMALS: patient oriented x3 SENSORIUM/ORIENTATION: Yes alert A&P Assessment and plan (1) Acute blood loss anemia: Most likely an upper GI source. We will proceed with upper endoscopy and further management. 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
--- NOTE | 2020-02-06 12:35 | P.ANESASSM_ITS ---
Pre-Anesthetic Assessment Pre-Anesthetic Assessment: Height/Weight: Height 1.52 m Weight 81.647 kg Temp Pulse Resp BP Pulse Ox 97.4 F L 99 18 115/82 95 02/06/20 12:30 02/06/20 12:30 02/06/20 12:30 02/06/20 12:30 02/06/20 12:30 Preop Diagnosis: hematemesis Proposed Procedure: Operation Date: 02/06/20 09:55 Proposed Procedures p EGD(Not Applicable) - Aubrey Reinoso MD Familial anesthetic complications: None Last intake: NPO > 8 hrs Social: Social History: Tobacco Exam: Pre-Anes Outpt Exam: alert, oriented x 3, clear to auscultation bilaterally and regular rate & rhythm Airway: Cervical ROM: WNL MP: 3 Dentition: False CV/HEM: CV/HEM: CHF Comments: EF 11/17/19 on echo 59%, trace MVR, mild LVH Hepatic: Comments: MONTANO GI: Comments: belkys feliciano tears - sternal pain after retching. No epsidoes in vomiting in 2 days Neuropsych: Neuropsych: Neuropathy Comments: cervical spine injury in 1989 -residual numbness in hands and feet, left with chronic pain Anesthetic Plan: ASA status: 3 Anesthesia: MAC Risk of > 500 ml blood loss (7ml/kg in children): No Meds/Allergies Current Medications: Current Medications Generic Name Dose Route Start Last Admin Trade Name Freq PRN Reason Stop Dose Admin Sodium Chloride 1,000 mls @ 75 ml s/hr 02/05/20 23:15 02/06/20 00:49 Sodium Chloride 0.9% IV 75 mls/hr .[id number] JENS Administration Insulin Aspart 0 unit 02/06/20 08:00 02/06/20 09:26 Novolog SUBCUT 10 unit WM&BEDTIME JENS Administration Protocol Morphine Sulfate 2 mg 02/05/20 20:11 02/06/20 09:26 Morphine IVP 2 mg Q4H PRN Administration SEVERE PAIN Pantoprazole Sodiu m 40 mg 02/05/20 23:15 02/06/20 00:49 Protonix IVP 40 mg Q12H JENS Administration PFSH Anesthesia PFSH: Medical History (Updated 02/06/20 @ 09:12 by Jessica Pan MD) Bilateral primary osteoarthritis of hip Chronic back pain Congestive heart failure Diabetes mellitus H/O Belkys-Feliciano syndrome (~07/2019) EGD at [facility]. EGD 10/26 negative. MONTANO (nonalcoholic steatohepatitis) Suicidal behavior Surgical History H/O cervical spine surgery H/O colonoscopy History of esophagogastroduodenoscopy Social History Smoking and tobacco status: current every day smoker cigarettes Packs smoked per day: 0.5 Alcohol intake: never History of recent travel: No Data Anesthesia CBC & Chem 7: 02/06/20 04:36 02/06/20 04:36 Other Labs: Laboratory Results - last 48 hr 02/05/20 02/05/20 02/05/20 14:28 14:28 14:28 WBC 5.5 RBC 3.71 L Hgb 9.2 L Hct 28.9 L MCV 77.9 L MCH 24.8 L MCHC 31.8 RDW 13.9 Plt Count 142 MPV 10.2 Neut % (Auto) 68.5 Lymph % (Auto) 21.9 [place] % (Auto) 6.9 Eos % (Auto) 2.0 Baso % (Auto) 0.5 Neut # (Auto) 3.78 Lymph # (Auto) 1.2 [place] # (Auto) 0.4 Eos # (Auto) 0.1 Baso # (Auto) 0.0 Nucleated RBC % (auto) 0 Nucleated RBCs # 0.0 PT INR Sodium 132 L Potassium 4.1 Chloride 100 Carbon Dioxide 24 Anion Gap 12.1 BUN 6 Creatinine 0.6 GFR Calculation 105.0 Glucose 352 H POC Glucose Calculated Osmolality 286 Lactate 1.3 Calcium 9.3 Total Bilirubin 0.7 AST 16 ALT 15 Alkaline Phosphatase 161 H Total Protein 6.3 L Albumin 3.8 Globulin 2.5 Lipase 43 Urine Color Urine Appearance Urine pH Ur Specific [place] Urine Protein Urine Glucose (UA) Urine Ketones Urine Blood Urine Nitrate Urine Bilirubin Urine Urobilinogen Ur Leukocyte Esterase SARS-CoV-2 Ag (Rapid) 02/05/20 02/05/20 02/05/20 14:28 15:23 15:24 WBC RBC Hgb Hct MCV MCH MCHC RDW Plt Count MPV Neut % (Auto) Lymph % (Auto) [place] % (Auto) Eos % (Auto) Baso % (Auto) Neut # (Auto) Lymph # (Auto) [place] # (Auto) Eos # (Auto) Baso # (Auto) Nucleated RBC % (auto) Nucleated RBCs # PT 13.70 INR 1.02 Sodium Potassium Chloride Carbon Dioxide Anion Gap BUN Creatinine GFR Calculation Glucose POC Glucose Calculated Osmolality Lactate Calcium Total Bilirubin AST ALT Alkaline Phosphatase Total Protein Albumin Globulin Lipase Urine Color Yellow Urine Appearance Clear Urine pH 7 Ur Specific [place] 1.010 Urine Protein Neg Urine Glucose (UA) 4+ H Urine Ketones Negative Urine Blood Neg Urine Nitrate Negative Urine Bilirubin Neg Urine Urobilinogen Neg Ur Leukocyte Esterase Negative SARS-CoV-2 Ag (Rapid) Negative 02/05/20 02/05/20 02/06/20 21:49 23:35 04:36 WBC 4.1 RBC 3.29 L Hgb 8.4 L 8.1 L Hct 26.6 L 26.1 L MCV 79.3 L MCH 24.6 L MCHC 31.0 RDW 14.0 Plt Count 118 L MPV 9.8 Neut % (Auto) 57.6 Lymph % (Auto) 29.5 [place] % (Auto) 8.9 Eos % (Auto) 3.1 Baso % (Auto) 0.7 Neut # (Auto) 2.38 Lymph # (Auto) 1.2 [place] # (Auto) 0.4 Eos # (Auto) 0.1 Baso # (Auto) 0.0 Nucleated RBC % (auto) 0 Nucleated RBCs # 0.0 PT INR Sodium Potassium Chloride Carbon Dioxide Anion Gap BUN Creatinine GFR Calculation Glucose POC Glucose 299 Calculated Osmolality Lactate Calcium Total Bilirubin AST ALT Alkaline Phosphatase Total Protein Albumin Globulin Lipase Urine Color Urine Appearance Urine pH Ur Specific [place] Urine Protein Urine Glucose (UA) Urine Ketones Urine Blood Urine Nitrate Urine Bilirubin Urine Urobilinogen Ur Leukocyte Esterase SARS-CoV-2 Ag (Rapid) 02/06/20 02/06/20 04:36 10:55 WBC RBC Hgb Hct MCV MCH MCHC RDW Plt Count MPV Neut % (Auto) Lymph % (Auto) [place] % (Auto) Eos % (Auto) Baso % (Auto) Neut # (Auto) Lymph # (Auto) [place] # (Auto) Eos # (Auto) Baso # (Auto) Nucleated RBC % (auto) Nucleated RBCs # PT INR Sodium 137 Potassium 3.5 Chloride 104 Carbon Dioxide 23 Anion Gap 13.5 BUN 6 Creatinine 0.4 L GFR Calculation 167.6 H Glucose 268 H POC Glucose 220 Calculated Osmolality 291 Lactate Calcium 8.4 L Total Bilirubin 0.7 AST 18 ALT 13 Alkaline Phosphatase 126 H Total Protein 5.3 L Albumin 3.4 L Globulin 1.9 Lipase Urine Color Urine Appearance Urine pH Ur Specific [place] Urine Protein Urine Glucose (UA) Urine Ketones Urine Blood Urine Nitrate Urine Bilirubin Urine Urobilinogen Ur Leukocyte Esterase SARS-CoV-2 Ag (Rapid) Cardiac Studies: No Data to Display
[2020-02-06] MEDS: sodium chloride 0.9% 1,000 ML 30 ML IV (12:42)
--- NOTE | 2020-02-06 13:47 | ANE.PACU2 ---
Inpatient post-anesthesia follow up: Airway intact: Yes Vital signs: Temperature 98.2 F Pulse Rate [Monito r] 105 Pulse Rate 96 Respiratory Rate 18 Blood Pressure [Le ft Arm] 120/80 Blood Pressure 116/66 Pulse Oximetry 98 Oxygen Delivery Me thod Room Air Oxygen Flow Rate Fraction of Inspir ed Oxygen Hydration adequate: Yes Nausea and vomiting: No Pain level: 1 Mental status: Baseline
[2020-02-06 15:19] LABS: Basophils % 0.5 %; Eosinophils # 0.1 10^3/uL (0.0-0.8); Eosinophils % 1.3 %; Hematocrit 26.4 % (37.0-47.0); Hemoglobin 8.3 g/dL (11.5-15.3); Lymphocytes % 15.2 %; Mean Corpuscular HGB Conc 31.4 g/dL (30.0-36.0); Mean Corpuscular Hemoglobin 24.6 pg (28.0-34.0); Mean Corpuscular Volume 78.3 fL (81-99); Mean Platelet Volume 9.8 fL (7.4-10.4); Monocytes # 0.4 10^3/uL (0.2-0.9); Monocytes % 5.9 %; Neutrophils # 4.78 10^3/uL (1.8-7.7); Neutrophils % 76.8 %; Nucleated Red Blood Cells % 0 %; Platelet Count 114 10^3/cmm (130-400); Red Blood Count 3.37 10^6/uL (4.1-5.3); Red Cell Distribution Width 13.9 % (12.1-15.1); White Blood Count 6.2 10^3/uL (4.0-10.0)
--- NOTE | 2020-02-06 15:37 | PC.NURSE ---
PT WENT TO OR FOR EGD AT APPROX. 1215 AND RETURNED TO THE FLOOR AT APPROX. 1400
--- NOTE | 2020-02-06 16:35 | P.DS_ITS ---
Discharge Providers Date of Admission: 02/06/20 04:50 Date of Discharge: February 06, 2020 Attending Provider at Admission: Andrea Mcmillan MD Attending Provider at Discharge: Jessica Pan MD Primary Care Provider: Eber Garsia DO Diagnoses at Discharge Discharge Diagnosis (1) Acute blood loss anemia: Status: Acute (2) Hx of Belkys-Valenzuela syndrome: Status: Chronic (3) Acute GI bleeding: Status: Acute (4) Eating disorder: Status: Chronic Qualifiers: Eating disorder type: bulimia nervosa Qualified Code(s): F50.2 - Bulimia nervosa (5) Major depression, recurrent: Status: Chronic (6) Grief at loss of child: Status: Chronic Reason for Visit Reason for Visit: bright red blood in vomit Hospital Course Hospital Course: Mrs. Calles presented to the emergency room complaining of vomiting bright red blood. She reported melena and hematochezia in the emergency room but did not report this on the floor. She has a history of GI bleeding earlier this year and was identified as having Belkys-Valenzuela syndrome with several tears that necessitated repairing. Initial hemoglobin was 9.2. Hemoglobin dropped to 8.4 leading to at least overnight admission. Hemoglobin the following morning was 8.1. She underwent EGD that did not show any evidence of active bleeding or ulceration or tear. She did have some polyp identified that was biopsied. Procedure was done by Dr. Reinoso. Mrs. Calles normally takes Protonix daily. She will continue on this. She did not require transfusion. Without intervention hemoglobin was stable in the afternoon after EGD had been done. She was tolerating oral intake. She did report weakness and aches and pains. Arrangements were made for home health physical therapy to h elp with unsteady gait. She was given a prescription for iron replacement. She does continue to vomit fairly frequently. She has a history of eating disorder/bulimia. She continues to struggle with the loss of her child earlier this year. She reports compliance with her medications. She has a long list of medications and we talked briefly about the fact that some of the medications might contribute to her not feeling right and being unsteady. She is not at a place that she feels comfortable considering change right now. She had requested some pain medication back I suggested that we hold off on adding an additional medication at this point and see how therapy goes first. She was agreeable to this plan. She lives alone and does not drive meeting homebound criteria. She did see physical therapy here and they felt that she would benefit. Physical Exam Narrative: EXAM NARRATIVE: No acute distress, pale, alert and oriented x3, oropharynx is clear, neck is supple, lungs are clear to auscultation bilaterally, regular rate and rhythm, abdomen is soft although mildly tender in the epigastric region, no lower extremity edema, no acute rashes Discharge Data Data Completed and Pending: Completed Studies During Hospitalization Category Date Time Status CT abdomen pelvis w con* [id number] Stat Cat Scan 02/05/20 15:09 Completed Pending at discharge Category Date Time Status Immunochemical Fe smitha OCB Routine Lab 02/05/20 15:01 Uncollected Pathology: Surgic al [PTH] Routine Pth 02/06/20 13:40 Ordered Labs from last 24 hours 02/06/20 02/06/20 02/06/20 15:10 10:55 04:36 WBC 6.2 RBC 3.37 L Hgb 8.3 L Hct 26.4 L MCV 78.3 L MCH 24.6 L MCHC 31.4 RDW 13.9 Plt Count 114 L MPV 9.8 Neut % (Auto) 76.8 Lymph % (Auto) 15.2 [place] % (Auto) 5.9 Eos % (Auto) 1.3 Baso % (Auto) 0.5 Neut # (Auto) 4.78 Lymph # (Auto) 1.0 [place] # (Auto) 0.4 Eos # (Auto) 0.1 Baso # (Auto) 0.0 Nucleated RBC % (a uto) 0 Nucleated RBCs # 0.0 Sodium 137 Potassium 3.5 Chloride 104 Carbon Dioxide 23 Anion Gap 13.5 BUN 6 Creatinine 0.4 L GFR Calculation 167.6 H Glucose 268 H POC Glucose 220 Calculated Osmolal ity 291 Calcium 8.4 L Total Bilirubin 0.7 AST 18 ALT 13 Alkaline Phosphata se 126 H Total Protein 5.3 L Albumin 3.4 L Globulin 1.9 02/06/20 02/05/20 02/05/20 04:36 23:35 21:49 WBC 4.1 RBC 3.29 L Hgb 8.1 L 8.4 L Hct 26.1 L 26.6 L MCV 79.3 L MCH 24.6 L MCHC 31.0 RDW 14.0 Plt Count 118 L MPV 9.8 Neut % (Auto) 57.6 Lymph % (Auto) 29.5 [place] % (Auto) 8.9 Eos % (Auto) 3.1 Baso % (Auto) 0.7 Neut # (Auto) 2.38 Lymph # (Auto) 1.2 [place] # (Auto) 0.4 Eos # (Auto) 0.1 Baso # (Auto) 0.0 Nucleated RBC % (a uto) 0 Nucleated RBCs # 0.0 Sodium Potassium Chloride Carbon Dioxide Anion Gap BUN Creatinine GFR Calculation Glucose POC Glucose 299 Calculated Osmolal ity Calcium Total Bilirubin AST ALT Alkaline Phosphata se Total Protein Albumin Globulin Vitals: Last Vital Signs Temp 99.2 F 02/06/20 16:00 Pulse 91 02/06/20 16:00 Resp 20 H 02/06/20 16:00 BP 111/69 02/06/20 16:00 Pulse Ox 98 02/06/20 16:00 Discharge Plan Discharge Patient Disposition: Home Health Service Condition: Stable Prescriptions: New ferric citrate 210 mg iron tablet 210 mg PO TID Qty: 90 RF: 0 Continued nitroglycerin [Nitrostat] 0.4 mg tablet, sublingual 0.4 mg SUBLINGUAL PRN PRN (Reason: Chest Pain) RF: 0 diazepam [Valium] 10 mg tablet 10 mg PO BID Qty: 2 RF: 0 Tresiba FlexTouch U-200 200 unit/mL (3 mL) insulin pen 60 unit SUBCUT DAILY RF: 0 oxybutynin chloride 10 mg tablet extended release 24hr 10 mg PO DAILY RF: 0 insulin lispro [Humalog KwikPen Insulin] 100 unit/mL insulin pen 20 unit SUBCUT TID Qty: 15 RF: 3 topiramate [Topamax] 25 mg tablet 25 mg PO DAILY Qty: 120 RF: 1 (DME) ReliOn Prime Test Strips Strip See Rx Instructions .ROUTE .MEDSUPPLY Qty: 120 RF: 2 insulin lispro [Humalog KwikPen Insulin] 100 unit/mL Insulin Pen See Rx Instructions .ROUTE .COMPLEX RF: 0 pantoprazole [Protonix] 40 mg Tablet,Delayed Release (Dr/Ec) 40 mg PO DAILY RF: 0 trazodone 50 mg Tablet 50 mg PO BEDTIME PRN (Reason: Sleep) 30 Days Qty: 30 RF: 1 ziprasidone HCl 40 mg Capsule 40 mg PO 0700,1700 30 Days Qty: 60 RF: 1 ondansetron HCl [Zofran] 8 mg Tablet 8 mg PO Q12H PRN (Reason: NAUSEA/VOMITING) RF: 0 doxepin 50 mg Capsule 100 mg PO BEDTIME 30 Days Qty: 60 RF: 2 prazosin 1 mg Capsule 3 mg PO BEDTIME 30 Days Qty: 90 RF: 2 clonidine HCl 0.1 mg Tablet 0.1 mg PO BEDTIME 30 Days Qty: 30 RF: 2 ropinirole 2 mg tablet 2 mg PO BEDTIME 30 Days Qty: 30 RF: 2 desvenlafaxine succinate [Pristiq] 100 mg Tablet Extended Release 24 Hr 100 mg PO DAILY 30 Days Qty: 30 RF: 2 chlorpromazine 50 mg Tablet 50 mg PO BID RF: 0 Discontinued methocarbamol [Robaxin-750] 750 mg tablet 750 mg PO Q6H Qty: 30 RF: 0 Discharge Orders: Discharge Order (Routine); Ordered 02/06/20 Ordered By: Jessica Pan Other Ambulatory Orders: Complete Blood Count w/Auto (Routine) Timeframe: 1 Week Location: Determined by Patient Ordered By: Jessica Pan Referrals: [facility] [Outside] Eber Garsia DO [Primary Care Provider] - 4-7 days (Please call Sunday to make a follow up appointment) Discharge Diet: Diabetic Discharge Activity: As per PT/OT instructions Patient Instructions: Anemia Discharge Date/Time: 02/06/20 17:45 Discharge Attestations Time Spent in Discharge Care*: greater than 30 min Specific Discharge Activities: Specific discharge activities: educating patient, discussing with keycase assembler/social workers/dc planners, documenting/other paperwork and evaluating patient/reviewing data Quality Metrics Clinical Quality Measures During this hospital stay, did patient experience: None Coding Level of Care Code Acute Manager Print for [facility] Fwd Diagnoses Acute blood loss anemia D62 Hx of Belkys-Valenzuela syndrome Z87.19 Acute GI bleeding K92.2 Eating disorder F50.2 Eating disorder type: bulimia nervosa Major depression, recurrent F33.9 Grief at loss of child F43.21; Z63.4
--- NOTE | 2020-02-06 16:48 | PC.RESP ---
Smoking Cessation information sent to patient.
[2020-02-06 17:04] LABS: Glucose Point of Care 192 mg/dL (70-110)
== END 2020-02-06 17:45 | disposition home health service (06) | DRG 378 ==
LOC: ER 18:03 → MEDSURG 19:09
PROVIDERS: Family Medicine; Hospitalist; Internal Medicine; Nurse Practitioner Family; Admitting Provider Family Medicine; PCP Internal Medicine; Visit Provider Hospitalist
PROC: 0DJ08ZZ Inspection of Upper Intestinal Tract, Via Natural or Artificial Opening Endoscopic (ICD-10-PCS; CPT 43235; principal; 2020-02-06 09:55)
DX: K92.2 Gastrointestinal hemorrhage, unspecified (principal); D62 Acute posthemorrhagic anemia; F50.2 Bulimia nervosa; E11.9 Type 2 diabetes mellitus without complications; F32.9 Major depressive disorder, single episode, unspecified; I50.9 Heart failure, unspecified; K75.81 Nonalcoholic steatohepatitis (NASH); M16.0 Bilateral primary osteoarthritis of hip; G89.29 Other chronic pain; M54.9 Dorsalgia, unspecified; F17.210 Nicotine dependence, cigarettes, uncomplicated; Z87.19 Personal history of other diseases of the digestive system; Z68.35 Body mass index [BMI] 35.0-35.9, adult; F43.21 Adjustment disorder with depressed mood; Z79.4 Long term (current) use of insulin; K31.9 Disease of stomach and duodenum, unspecified
CPT/HCPCS: 12345; 36415; 36416; 43239; 74177; 80053; 81003; 82962; 83605; 83690; 85014; 85018; 85025; 85610; 87426; 88305; 96375; 97110; 97161; 99283; C9113; G0378; J1815; J2270; J2704; J7030; Q9967

== ENCOUNTER → 2020-02-13 08:55 | Day surgery (SDC) | payer MEDICARE, MEDICAID, SELFPAY ==
[2020-02-13] MEDS: ferric carboxy (IVPB) 750 MG in sodium chloride 0.9% (100 ml) 100 ML 345 MG IV (09:53)
[2020-02-13 09:54] VITALS: BP 103/76; PULSE 103; RESP 18; TEMP 36.7; O2SAT 97
[2020-02-20 09:41] VITALS: BP 132/96; PULSE 90; RESP 18; TEMP 36.6; O2SAT 95
[2020-02-20] MEDS: ferric carboxy (IVPB) 750 MG in sodium chloride 0.9% (100 ml) 100 ML 345 MG IV (09:56)
== END ==
PROVIDERS: PCP Internal Medicine; Visit Provider Internal Medicine
DX: D50.9 Iron deficiency anemia, unspecified (principal)
CPT/HCPCS: 96365; J1439

== ENCOUNTER → 2020-02-19 12:25 | Outpatient (BNVA) | payer MEDICARE, MEDICAID, SELFPAY | PROVIDERS: PCP Internal Medicine; Referring Provider Nurse Practitioner; Visit Provider Specialist | DX: M79.7 Fibromyalgia (principal); M46.1 Sacroiliitis, not elsewhere classified; G43.909 Migraine, unspecified, not intractable, without status migrainosus; F17.210 Nicotine dependence, cigarettes, uncomplicated | CPT/HCPCS: 20552; 99213; G0260; J1030; J3490 ==

== ENCOUNTER 2020-03-31 08:03 | Outpatient (CLI) | payer MEDICARE, MEDICAID, SELFPAY ==
[2020-03-31 09:11] LABS: Basophils % 0.5 %; Eosinophils # 0.1 10^3/uL (0.0-0.8); Eosinophils % 2.3 %; Hemoglobin 12.1 g/dL (11.5-15.3); Lymphocytes # 0.9 10^3/uL (0.8-4.8); Lymphocytes % 20.6 %; Mean Corpuscular HGB Conc 33.6 g/dL (30.0-36.0); Mean Corpuscular Hemoglobin 28.1 pg (28.0-34.0); Mean Corpuscular Volume 83.7 fL (81-99); Mean Platelet Volume 9.9 fL (7.4-10.4); Monocytes # 0.4 10^3/uL (0.2-0.9); Monocytes % 9.9 %; Neutrophils # 2.88 10^3/uL (1.8-7.7); Neutrophils % 66.5 %; Nucleated Red Blood Cells % 0 %; Platelet Count 108 10^3/cmm (130-400); Red Cell Distribution Width 19.7 % (12.1-15.1); White Blood Count 4.3 10^3/uL (4.0-10.0)
--- NOTE | 2020-03-31 11:13 | ONC FU_ITS ---
Dr. Anders follow up note Patient: Kay Calles Unit #: [id number]: [id number] Dicatated By: Tristin Anders M.D.Date of Visit:Mar 31, 2020 Onc Med Follow-up/Prog Note History of Present Illness: Mrs. Kay Calles, 54-year-old female with history of Off and on bruising especially on the arms and legs . As per patient history of low platelet count. On 09/27/2016 her white blood count was 4.2 hemoglobin 11 crit 34.7 platelets 95,000 with a normal differential. Anemia workup including iron studies showed ferritin 78 TIBC 286 B12 794 reticulocyte count 1.85 serum protein electrophoresis normal pattern PT 14.3 INR 1.2 CBC on 11/02/2016 showed white blood count 4.9 hemoglobin 12.8 crit 39.7 platelets 70,000 Bone marrow evaluation done on May 24, 2017 showed megakaryocytes are present in normal number and exhibit limited megakaryodyspoiesis-mononuclear megakaryocytes, FISH for MDS panel was negative, flow cytometric showed no aberrant myeloid or lymphoid population. CT scan of chest ordered by PMD, done on October 29, 2019 showed stable splenomegaly, air-fluid level in the mid and distal esophagus with esophageal thickening. Small amount of unchanged patchy groundglass infiltrates about the right hilum and left lower lobe likely infectious or inflammatory. No mediastinal/hilar lymphadenopathy. As patient has history of off and on bleeding per rectum, As per patient she underwent EGD and colonoscopy in July 2019 , and she was diagnosed with Belkys-Valenzuela and also peptic ulcer disease and colonoscopy showed polyp which was removed and was benign. Came for follow-up, denies any specific complaints except generalized weakness and fatigue, which is improving now as per patient her son committed suicide recently and to cope with that she has been drinking hard liquor until last week and now decided to quit. But denies any jaundice denies any hemoptysis or hematemesis denies any dysphagia still off and on dark-colored stools or fresh blood per rectum and there EGD done in July 2019 showed peptic ulcer disease and Belkys-Valenzuela syndrome, ., Last time patient was seen in clinic was back in June 2017 and then patient decided not to come rather follow-up with PMD because of financial reason and inconvenience. As per patient her hemoglobin dropped to 7 g in July but did not receive any blood transfusion and then in January 2020 her lab work-up showed hemoglobin was 9.1 g hematocrit 28.8 g MCV 77.5 platelets 167,000 white blood count 5.1 creatinine was 0.4 iron studies shows ferritin 10, TIBC 442, iron saturation 5%, iron 20, as per patient she was offered oral iron but in the past she could not tolerate surgery she decided not to take it and her follow-up labs done on March 01, 2020 showed white blood count 4.4, hemoglobin 11.9 hematocrit 38.1 platelets 150,000 with MCV 84.7 and patient said in the last month or so she did not notice much fresh blood per rectum either. Medications: Lexapro 1 Tablet (of 20 mg) Oral daily, Nitroglycerin Tablet, sublingual Sublingual PRN, Pristiq 1 Tablet (of 50 mg) Tablet SR 24 HR Oral daily, SEROquel 1 (50 mg) Tablet Oral daily Allergies: Aspirin Adult Low Dose, Cephalosporins, Imitrex, NSAIDs, and Penicillins. Review of Systems: Review of Systems is not available for this patient. Vital Signs: Performed on Mar 31, 2020 09:25 Height - 60.00 in Weight - 197.4 lbs (HIGH) BSA - 1.86 sq.m BMI - 38.55 (HIGH) Temperature - 99.5 F (HIGH) Pulse - 99 /min Respiration - 18 /min BP - 139/76 mm(hg) O2 Sat - 98 % Pain - 8 Performance Status: 1 - No physically strenuous activity, but ambulatory and able to carry out light or sedentary work (e.g. office work, light house work). (ECOG) Physical Examination: ENMT - No mouth sores, no thrush, no jaundice, Respiratory - Lungs are clear to auscultation, Cardiovascular - Regular rate and rhythm of heart, Abdomen - Soft, bowel sounds present,. Lab/Imaging: Most recent lab results are not available for this patient. Impression: Iron deficiency anemia diagnosed on February 04, 2020 per PMD note, at that time her hemoglobin was 9.1 g hematocrit 28.8, MCV 77.5 platelets 167,000 white blood count 5.1 and ferritin 10, iron saturation 5%, iron 20, TIBC 442, as per patient she was offered oral iron and she did not take it because history of GI intolerance but in the past she has taken parenteral iron without any problem. Thrombocytopenia questionable etiology could be due to increased peripheral destruction like low-grade ITP or splenic sequestration or medication related or decreased production due to primary bone marrow disorder /suppression due to medication or subacute infection.Or platelet clumping due to EDTA Splenomegaly seen on CT scan of chest done on October 29, 2019 Recurrent , off and on, blood in her stool for few weeks Bone marrow done on 05/24/2017 showed megakaryocytes are present in normal number and exhibit limited megakaryodyspoiesis-mononucleated megakaryocytes. red cell precursors mature with -occasional binucleate precursors. FISH MDS panel showed No MDS specific abnormalities were detected and flow cytometry showed no aberrant myeloid or lymphoid population detected Diabetes mellitus Plan: Discussed with patient regarding her labs white blood count 4.3 hemoglobin 12.1 g hematocrit 36 platelets 108,000, MCV 83.4 with a normal differential Clinically, patient doing reasonably well, denies any new signs symptom but chronic generalized weakness and fatigue which could be multifactorial including but not limited to recent bout of alcohol abuse, as per patient her son committed suicide recently and she was trying to cope with that, other possibility could be uncontrolled diabetes. Her hemoglobin is normalized she has mild thrombocytopenia which could be due to splenomegaly or alcohol induced bone marrow suppression or early myelodysplasia as bone marrow done in recent past showed megakaryodyspoiesis. Patient is noncompliant and lost follow-up as she decided not to return to clinic on her own due to financial reason as well as inconvenience, but as per patient and PMD note since her last visit, patient did develop iron deficiency anemia, as per patient she was not offered blood transfusion and she did not take oral iron because of GI intolerance, her hemoglobin improved as she was not losing much blood per rectum and EGD and colonoscopy done in July 2019 showed peptic ulcer disease and Belkys-Valenzuela syndrome. At this point we will monitor her and she will return to clinic in 1 month with CBC and iron studies if there is a drop in her hemoglobin or she has persistent iron deficiency, will consider parenteral iron as patient has history of GI intolerance to oral iron. We will also obtain records from Dr. Shrestha's regarding EGD and colonoscopy Signed By: Tristin Anders M.D. <<Signature on File>>
== END 2020-03-31 08:04 | disposition home or self-care (01) ==
LOC: ONCMED 08:06
PROVIDERS: PCP Internal Medicine; Visit Provider Internal Medicine Hematology & Oncology
DX: D50.9 Iron deficiency anemia, unspecified (principal); D69.6 Thrombocytopenia, unspecified; R53.1 Weakness; R53.83 Other fatigue; F10.10 Alcohol abuse, uncomplicated; E11.8 Type 2 diabetes mellitus with unspecified complications; K92.1 Melena; Z91.19 Patient's noncompliance with other medical treatment and regimen
CPT/HCPCS: 36415; 85025; G0463

== ENCOUNTER → 2020-05-13 08:33 | Outpatient (BNVA) | payer MEDICARE, MEDICAID, SELFPAY | PROVIDERS: PCP Internal Medicine; Visit Provider Psychiatry & Neurology Psychiatry | DX: F33.9 Major depressive disorder, recurrent, unspecified (principal); F41.9 Anxiety disorder, unspecified; F43.21 Adjustment disorder with depressed mood; Z63.4 Disappearance and death of family member | CPT/HCPCS: 90792 ==

== ENCOUNTER 2020-08-13 09:59 | Emergency (ER) | payer MEDICARE, MEDICAID, SELFPAY ==
[2020-08-13 10:05] VITALS: BP 138/83; PULSE 88; RESP 18; TEMP 36.7; O2SAT 95; BMI 34.3
--- NOTE | 2020-08-13 10:41 | XR_ITS ---
WS: [id number] Portable AP upright chest, 08/13/2020 Clinical Data: dyspnea/cough Comparison: Portable chest, 01/08/2020. Findings: No nodules, masses or effusions are seen. The heart is normal. The pulmonary vascularity is not increased. No pneumonia or pneumothorax is seen. The patient has had an anterior cervical disc f usion. XR/XR chest 1V portable [id number] Impression: Negative chest.
[2020-08-13 11:32] LABS: Basophils % 0.8 %; Eosinophils # 0.1 10^3/uL (0.0-0.8); Eosinophils % 3.6 %; Hematocrit 35.8 % (37.0-47.0); Hemoglobin 11.8 g/dL (11.5-15.3); Lymphocytes # 0.8 10^3/uL (0.8-4.8); Lymphocytes % 19.9 %; Mean Corpuscular Hemoglobin 25.7 pg (28.0-34.0); Mean Corpuscular Volume 77.8 fL (81-99); Mean Platelet Volume 9.5 fL (7.4-10.4); Monocytes # 0.4 10^3/uL (0.2-0.9); Monocytes % 9.2 %; Neutrophils # 2.59 10^3/uL (1.8-7.7); Neutrophils % 66.2 %; Nucleated Red Blood Cells % 0 %; Platelet Count 121 10^3/cmm (130-400); Red Cell Distribution Width 16.6 % (12.1-15.1); White Blood Count 3.9 10^3/uL (4.0-10.0)
--- NOTE | 2020-08-13 11:49 | ED_ITS ---
HPI - General Adult General: Chief complaint: General Medical Stated complaint: Congestion/Coughing Time Seen by Provider: 08/13/20 10:25 History of Present Illness: HPI narrative: 55-year-old female presents to the emergency room with cough congestion nasal drainage for the last several days. Patient patient is on an albuterol inhaler which does seem to help some she has a history of COPD history of diabetes mellitus she has had a moderately productive cough no vomiting or diarrhea no fever sweats or chills. Onset (ago): day(s) Location: chest Radiation: non-radiation Severity: moderate Quality: aching Pain Consistency: intermittent Relieving factors: none Exacerbating factors: other (Cough deep inspiration) Associated symptoms: Reports cough; Deny chest pain, confusion, diaphoresis, decreased appetite, dyspnea, fevers/chills, headache(s), malaise, nausea, rash, palpitations, seizures, short of breath, syncope, vomiting or weakness Treatments prior to arrival: none Review of Systems Const: Denies: malaise or diaphoresis ENMT: Denies: throat pain, ear or mastoid pain, nasal discharge or nasal congestion Card: Denies: chest pain, palpitations or syncope Resp: Denies: dyspnea GI: Denies: nausea or vomiting : Denies: flank pain, difficulty voiding, dysuria, urinary frequency or urinary urgency Skin/Breast: Denies: rash Neuro: Denies: headache(s) or confusion PFS ED PFSH: Medical History Anxiety Bilateral primary osteoarthritis of hip Chronic back pain Congestive heart failure Diabetes mellitus H/O Belkys-Valenzuela syndrome (~07/2019) EGD at [facility]. EGD 10/26 negative. MONTANO (nonalcoholic steatohepatitis) Suicidal behavior Surgical History H/O cervical spine surgery H/O colonoscopy History of esophagogastroduodenoscopy Social History Smoking and tobacco status: current every day smoker cigarettes Packs smoked per day: 0.5 Alcohol intake: never History of recent travel: No Current gender identity: Female Physical Exam Const: COMMON NORMALS: no acute distress GENERAL APPEARANCE: cooperative and comfortable ORIENTATION/CONSCIOUSNESS: Yes awake, Yes oriented to person, Yes oriented to place and Yes oriented to time HENMT: COMMON NORMALS: normocephalic, atraumatic and hearing grossly normal bilaterally HEAD & SCALP: normocephalic and atraumatic Neck/C-Spine: COMMON NORMALS: no JVD Resp: EFFORT & INSPECTION: Yes labored AUSCULTATION: rhonchi and wheezes Cardio: COMMON NORMALS: no JVD, regular rate, regular rhythm and No murmurs present (Cardio) RATE: regular rate RHYTHM: regular rhythm GI: COMMON NORMALS: Soft to palpation and No hepatosplenomegaly present AUSCULTATION: Yes normoactive bowel sounds PALPATION: Yes Soft to palpation, No Tenderness to palpation present (GI), No Guarding due to palpation present (GI) and Yes No hepatosplenomegaly present Extremity: COMMON NORMALS: normal to inspection, capillary refill normal, no clubbing, cyanosis or edema, no calf tenderness and no pedal edema Neuro: SENSORIUM/ORIENTATION: Yes oriented to person, Yes oriented to place and Yes oriented to time Skin: COMMON NORMALS: no rashes or lesions noted GENERAL SKIN EXAM: no rashes or lesions noted Course Vital Signs: Vital signs: Vital Signs Temperature 98.1 F 08/13/20 10:05 Pulse Rate 88 08/13/20 10:05 Respiratory Rate 18 08/13/20 10:05 Blood Pressure 138/83 08/13/20 10:05 Pulse Oximetry 95 08/13/20 10:05 MDM - General Adult MDM Narrative: Medical decision making narrative: Findings patient was started on doxycycline Medrol Dosepak continue albuterol encourage her to follow-up with primary care for better long-term control with inhaled LABA as her ICS's. Lab Data: Labs: Lab Results 08/13/20 08/13/20 Range/Units 11:23 11:23 WBC 3.9 L (4.0-10.0) 10^3/ uL RBC 4.60 (4.1-5.3) 10^6/u L Hgb 11.8 (11.5-15.3) g/dL Hct 35.8 L (37.0-47.0) % MCV 77.8 L (81-99) fL MCH 25.7 L (28.0-34.0) pg MCHC 33.0 (30.0-36.0) g/dL RDW 16.6 H (12.1-15.1) % Plt Count 121 L (130-400) 10^3/c mm MPV 9.5 (7.4-10.4) fL Neut % (Auto) 66.2 % Lymph % (Auto) 19.9 % [place] % (Auto) 9.2 % Eos % (Auto) 3.6 % Baso % (Auto) 0.8 % Neut # (Auto) 2.59 (1.8-7.7) 10^3/u L Lymph # (Auto) 0.8 (0.8-4.8) 10^3/u L [place] # (Auto) 0.4 (0.2-0.9) 10^3/u L Eos # (Auto) 0.1 (0.0-0.8) 10^3/u L Baso # (Auto) 0.0 (0.0-0.1) 10^3/u L Nucleated RBC % (a uto) 0 % Nucleated RBCs # 0.0 /100WBC Sodium 136 (136-145) mmol/L Potassium 3.7 (3.5-5.1) mmol/L Chloride 104 (98-107) mmol/L Carbon Dioxide 25 (22-29) mmol/L Anion Gap 10.7 (5-19) BUN 9 (6-20) mg/dL Creatinine 0.4 L (0.5-0.9) mg/dL GFR Calculation 167.0 H (90-130) mL/min Glucose 110 (65-115) mg/dL Calculated Osmolal ity 281 L (285-295) mOsm/k g Calcium 8.6 (8.5-10.5) mg/dL Total Bilirubin 0.8 (0.15-1.2) mg/dL AST 48 H (0-32) U/L ALT 32 (0-33) U/L Alkaline Phosphata se 193 H (35-105) IU/L Total Protein 6.3 L (6.6-8.7) g/dL Albumin 3.6 (3.5-5.2) g/dL Globulin 2.7 (1.3-4.6) g/dL Discharge Plan Discharge Patient Disposition: Home Clinical Impression: Bronchitis, Acute exacerbation of chronic obstructive pulmonary disease (COPD) Condition: Stable Prescriptions: New doxycycline hyclate 100 mg capsule 100 mg PO BID 10 Days Qty: 20 RF: 0 Medrol (John) 4 mg tablets,dose pack See Rx Instructions .ROUTE .COMPLEX Qty: 21 RF: 0 albuterol sulfate 90 mcg/actuation HFA aerosol inhaler 2 inh INHALATION Q4H PRN (Reason: shortness of breath or wheezing) Qty: 18 RF: 0 No Action nitroglycerin [Nitrostat] 0.4 mg tablet, sublingual 0.4 mg SUBLINGUAL PRN PRN (Reason: Chest Pain) RF: 0 Tresiba FlexTouch U-200 200 unit/mL (3 mL) insulin pen 60 unit SUBCUT DAILY RF: 0 oxybutynin chloride 10 mg tablet extended release 24hr 10 mg PO DAILY RF: 0 insulin lispro [Humalog KwikPen Insulin] 100 unit/mL insulin pen 20 unit SUBCUT TID Qty: 15 RF: 3 topiramate [Topamax] 25 mg tablet 25 mg PO DAILY Qty: 120 RF: 1 buspirone 30 mg tablet 30 mg PO BID PRN (Reason: anxiety) 30 Days Qty: 60 RF: 3 trazodone 150 mg tablet 150 mg PO BEDTIME PRN (Reason: Sleep) 30 Days Qty: 30 RF: 3 (DME) ReliOn Prime Test Strips Strip See Rx Instructions .ROUTE .MEDSUPPLY Qty: 120 RF: 2 diazepam [Valium] 10 mg tablet 10 mg PO BID Qty: 2 RF: 3 insulin lispro [Humalog KwikPen Insulin] 100 unit/mL Insulin Pen See Rx Instructions .ROUTE .COMPLEX RF: 0 pantoprazole [Protonix] 40 mg Tablet,Delayed Release (Dr/Ec) 40 mg PO DAILY RF: 0 ondansetron HCl [Zofran] 8 mg Tablet 8 mg PO Q12H PRN (Reason: NAUSEA/VOMITING) RF: 0 ropinirole 2 mg tablet 2 mg PO BEDTIME 30 Days Qty: 30 RF: 2 chlorpromazine 50 mg Tablet 50 mg PO BID RF: 0 ferric citrate 210 mg iron tablet 210 mg PO TID Qty: 90 RF: 0 Discharge Orders: Discharge ED (Routine); Ordered 08/13/20 Ordered By: Gee Huertas Referrals: Eber Garsia DO [Primary Care Provider] - Discharge Diet: Usual diet Discharge Activity: Resume usual activity Patient Instructions: Opioid Safety Activity Restrictions/Additional Instructions: Follow-up with your primary care physician if you do not improve. If worsen return to the emergency room. Coding Level of Care Code ED Solution Advisor for Rober Arellano
[2020-08-13 11:53] LABS: Alanine Aminotransferase 32 U/L (0-33); Albumin Level 3.6 g/dL (3.5-5.2); Alkaline Phosphatase 193 IU/L (35-105); Anion Gap 10.7 (5-19); Aspartate Amino Transferase 48 U/L (0-32); Blood Urea Nitrogen 9 mg/dL (6-20); Calcium 8.6 mg/dL (8.5-10.5); Carbon Dioxide 25 mmol/L (22-29); Chloride 104 mmol/L (98-107); Globulin 2.7 g/dL (1.3-4.6); Glucose 110 mg/dL (65-115); Osmolality Calculated 281 mOsm/kg (285-295); Potassium 3.7 mmol/L (3.5-5.1); Sodium 136 mmol/L (136-145); Total Bilirubin 0.8 mg/dL (0.15-1.2); Total Protein 6.3 g/dL (6.6-8.7)
== END 2020-08-13 13:04 | disposition home or self-care (01) ==
PROVIDERS: Emergency Provider Family Medicine; PCP Internal Medicine
DX: J44.1 Chronic obstructive pulmonary disease with (acute) exacerbation (principal); Z79.4 Long term (current) use of insulin; I50.9 Heart failure, unspecified; E11.9 Type 2 diabetes mellitus without complications; F17.210 Nicotine dependence, cigarettes, uncomplicated
CPT/HCPCS: 71045; 80053; 85025; 99283

== ENCOUNTER 2020-09-29 22:31 | Emergency (ER) | payer MEDICARE, MEDICAID, SELFPAY ==
[2020-09-29 22:40] VITALS: BP 114/74; PULSE 87; RESP 16; TEMP 36.8; O2SAT 93; BMI 34.9
--- NOTE | 2020-09-29 22:49 | XRR_ITS ---
PROCEDURE INFORMATION: Exam: XR Left Elbow Exam date and time: 09/29/2020 10:49 PM Age: 55 years old Clinical indication: Injury or trauma; Blunt trauma (contusions or hematomas); Left; Patient HX: Fall tonight while going for walk. Small abrasion to posterior aspect of elbow. TECHNIQUE: Imaging protocol: XR Left elbow. Views: 3 or more views. COMPARISON: No relevant prior studies available. FINDINGS: Bones/joints: There is no acute fracture or dislocation. If symptoms persist, follow-up imaging in several days may be useful to exclude an occult fracture. No other significant acute bone or joint abnormality. Soft tissues: No evidence for elbow joint effusion. XR/XR elbow LT min 3V* [id number] IMPRESSION: No acute fracture or dislocation.
--- NOTE | 2020-09-29 22:49 | CTR_ITS ---
PROCEDURE INFORMATION: Exam: CT Head Without Contrast Exam date and time: 09/29/2020 10:49 PM Age: 55 years old Clinical indication: Injury or trauma; Blunt trauma (contusions or hematomas); Prior surgery; Surgery type: Cerv fusion; Patient HX: Fall tonight while going for walk. Small hematoma to forehead. TECHNIQUE: Imaging protocol: Computed tomography of the head without contrast. Radiation optimization: All CT scans at this facility use at least one of these dose optimization techniques: automated exposure control; mA and/or kV adjustment per patient size (includes targeted exams where dose is matched to clinical indication); or iterative reconstruction. COMPARISON: CT head wo con* [id number] 01/08/2020 5:51 AM RADIATION DOSE METRICS: Total DLP (mGy-cm): 822.73 FINDINGS: Brain: No acute intracranial hemorrhage or mass effect. Small well-defined low attenuation area along the inferior margin of the left basal ganglia may represent a prominent perivascular space, possibly a old lacunar infarct. No significant interval change. No definite acute infarct by CT. Cerebral ventricles: Ventricle size is normal for age. Paranasal sinuses: Included paranasal sinuses are essentially clear. Mastoid air cells: No significant acute finding. Bones/joints: No definite acute skull fracture. Soft tissues: Evidence for soft tissue injury/scalp hematoma in the frontal region. CT/CT head wo con* [id number] IMPRESSION: 1. No acute intracranial hemorrhage or mass effect. 2. Other findings discussed above. Radiation Dose CTDIVOL = (mGy): DLP = 822.73 (mGy-cm)
--- NOTE | 2020-09-30 00:22 | ED_ITS ---
HPI - Fall General: Chief Complaint: Fall Stated Complaint: FALL Time Seen by Provider: 09/29/20 23:43 Source: patient and EMS Mode of arrival: EMS Limitations: no limitations History of Present Illness: HPI Narrative: 55-year-old female who states she was on a walk this evening and tripped and fell. She has an abrasion to her left elbow and also hit her head with a abrasion to her head. She denies any other injuries. She denies loss conscious. States her elbow pain and headache is roughly 5 out of 10. Associated symptoms-after fall: Denies abdominal pain, chest pain, headache(s) or neck pain Review of Systems Const: Denies: fever(s), chills, body aches or change in appetite Eyes: Denies: blurry vision or eye discomfort ENMT: Denies: throat pain or dental pain Card: Denies: chest pain Resp: Denies: dyspnea GI: Denies: abdominal pain, nausea, vomiting or diarrhea : Denies: dysuria Musc: Denies: neck pain or back pain Skin/Breast: Denies: rash Neuro: Denies: headache(s) Psych: Denies: depression Girma/Lymph: Denies: easy bruising All/Imm: Denies: urticaria PFSH ED PFSH: Medical History Anxiety Bilateral primary osteoarthritis of hip Chronic back pain Congestive heart failure Diabetes mellitus H/O Belkys-Valenzuela syndrome (~07/2019) EGD at [facility]. EGD 10/26 negative. MONTANO (nonalcoholic steatohepatitis) Suicidal behavior Surgical History H/O cervical spine surgery H/O colonoscopy History of esophagogastroduodenoscopy Social History Smoking and tobacco status: current every day smoker cigarettes Packs smoked per day: 0.5 Alcohol intake: never History of recent travel: No Current gender identity: Female Physical Exam Const: COMMON NORMALS: no acute distress, patient oriented x3 and healthy appearing HENMT: COMMON NORMALS: normocephalic HEAD & SCALP: normocephalic OTHER: Small hematoma to forehead Eye: COMMON NORMALS: Equal, round and reactive pupils present and EOMs intact bilaterally PUPIL: Yes Equal, round and reactive pupils present Neck/C-Spine: COMMON NORMALS: full ROM and supple Chest: COMMONS NORMALS: normal inspection of the chest and normal palpation of entire chest wall Resp: COMMON NORMALS: normal respiratory effort, No retractions, No use of accessory muscles and clear to auscultation bilaterally AUSCULTATION: clear to auscultation bilaterally Cardio: COMMON NORMALS: regular rate, regular rhythm and No murmurs present (Cardio) RATE: regular rate RHYTHM: regular rhythm GI: COMMON NORMALS: Normal to inspection, nondistended, normoactive bowel sounds present, Soft to palpation, non-tender and no masses PALPATION: Yes Soft to palpation Extremity: COMMON NORMALS: normal to inspection and full ROM Neuro: COMMON NORMALS: patient oriented x3, moves all extremities and no focal motor deficits Psych: COMMON NORMALS: mental status grossly normal, Normal thought process present and cooperative THOUGHT PROCESS: Normal thought process present Skin: COMMON NORMALS: no rashes or lesions noted NARRATIVE SKIN EXAM: Slight abrasion to left elbow able to move the arm with full range of motion GENERAL SKIN EXAM: no rashes or lesions noted Course Vital Signs: Vital signs: Vital Signs Temperature 98.3 F 09/29/20 22:40 Pulse Rate 87 09/29/20 22:40 Respiratory Rate 16 09/29/20 22:40 Blood Pressure 114/74 09/29/20 22:40 Pulse Oximetry 93 09/29/20 22:40 MDM - Fall MDM Narrative: Medical decision making narrative: Patient presents with a closed head injury along with a an abrasion to her elbow. She is well-appearing here and head CT and x-ray are normal. She is stable for discharge and is to follow-up with PCP and return if worsening. Imaging Data^: CT Head: Radiologist's impression: [address] [address] [address] Scan Report Signed Patient: Kay Calles Unit #: [id number] : 1965 Age/Sex: 55 / F ADM Date: 09/29/20 Loc: ER Room/Bed: Attending Dr: Ordering Provider/Ordering MD: Carmela Haro MD Date of Service: 09/29/20 Procedure(s): CT head wo con* [id number] Accession Number(s): [id number] Report Number: [id number] PROCEDURE INFORMATION: Exam: CT Head Without Contrast Exam date and time: 09/29/2020 10:49 PM Age: 55 years old Clinical indication: Injury or trauma; Blunt trauma (contusions or hematomas); Prior surgery; Surgery type: Cerv fusion; Patient HX: Fall tonight while going for walk. Small hematoma to forehead. TECHNIQUE: Imaging protocol: Computed tomography of the head without contrast. Radiation optimization: All CT scans at this facility use at least one of these dose optimization techniques: automated exposure control; mA and/or kV adjustment per patient size (includes targeted exams where dose is matched to clinical indication); or iterative reconstruction. COMPARISON: CT head wo con* [id number] 01/08/2020 5:51 AM RADIATION DOSE METRICS: Total DLP (mGy-cm): 822.73 FINDINGS: Brain: No acute intracranial hemorrhage or mass effect. Small well-defined low attenuation area along the inferior margin of the left basal ganglia may represent a prominent perivascular space, possibly a old lacunar infarct. No significant interval change. No definite acute infarct by CT. Cerebral ventricles: Ventricle size is normal for age. Paranasal sinuses: Included paranasal sinuses are essentially clear. Mastoid air cells: No significant acute finding. Bones/joints: No definite acute skull fracture. Soft tissues: Evidence for soft tissue injury/scalp hematoma in the frontal region. CT/CT head wo con* [id number] IMPRESSION: 1. No acute intracranial hemorrhage or mass effect. 2. Other findings discussed above. Radiation Dose CTDIVOL = (mGy): DLP = 822.73 (mGy-cm) Xray Ortho: Radiologist's impression: [address] [address] XRay Report Signed Patient: Kay Calles Unit #: [id number] : 1965 Age/Sex: 55 / F ADM Date: 09/29/20 Loc: ER Room/Bed: Attending Dr: Ordering Provider/Ordering MD: Carmela Haro MD Date of Service: 09/29/20 Procedure(s): XR elbow LT min 3V* [id number] Accession Number(s): [id number] Report Number: [id number] PROCEDURE INFORMATION: Exam: XR Left Elbow Exam date and time: 09/29/2020 10:49 PM Age: 55 years old Clinical indication: Injury or trauma; Blunt trauma (contusions or hematomas); Left; Patient HX: Fall tonight while going for walk. Small abrasion to posterior aspect of elbow. TECHNIQUE: Imaging protocol: XR Left elbow. Views: 3 or more views. COMPARISON: No relevant prior studies available. FINDINGS: Bones/joints: There is no acute fracture or dislocation. If symptoms persist, follow-up imaging in several days may be useful to exclude an occult fracture. No other significant acute bone or joint abnormality. Soft tissues: No evidence for elbow joint effusion. XR/XR elbow LT min 3V* [id number] IMPRESSION: No acute fracture or dislocation. Discharge Plan Discharge Patient Disposition: Home Clinical Impression: Fall Qualifiers: Encounter type: initial encounter Qualified Code(s): W19.XXXA - Unspecified fall, initial encounter Closed head injury Qualifiers: Encounter type: initial encounter Qualified Code(s): S09.90XA - Unspecified injury of head, initial encounter Condition: Stable Prescriptions: No Action ciclopirox 8 % solution 1 applic topical DAILY Qty: 6.6 RF: 4 nitroglycerin [Nitrostat] 0.4 mg tablet, sublingual 0.4 mg SUBLINGUAL PRN PRN (Reason: Chest Pain) RF: 0 Tresiba FlexTouch U-200 200 unit/mL (3 mL) insulin pen 60 unit SUBCUT DAILY RF: 0 insulin lispro [Humalog KwikPen Insulin] 100 unit/mL insulin pen 20 unit SUBCUT TID Qty: 15 RF: 3 buspirone 30 mg tablet 30 mg PO BID PRN (Reason: anxiety) 30 Days Qty: 60 RF: 3 trazodone 150 mg tablet 150 mg PO BEDTIME PRN (Reason: Sleep) 30 Days Qty: 30 RF: 3 (DME) ReliOn Prime Test Strips Strip See Rx Instructions .ROUTE .MEDSUPPLY Qty: 120 RF: 2 insulin lispro [Humalog KwikPen Insulin] 100 unit/mL Insulin Pen See Rx Instructions .ROUTE .COMPLEX RF: 0 ondansetron HCl [Zofran] 8 mg Tablet 8 mg PO Q12H PRN (Reason: NAUSEA/VOMITING) RF: 0 chlorpromazine 50 mg Tablet 50 mg PO BID RF: 0 albuterol sulfate 90 mcg/actuation HFA aerosol inhaler 2 inh INHALATION Q4H PRN (Reason: shortness of breath or wheezing) Qty: 18 RF: 0 Discharge Orders: Discharge ED (Routine); Ordered 09/30/20 Ordered By: Carmela Haro Referrals: Eber Garsia DO [Primary Care Provider] - 1-3 days Discharge Diet: Advance as tolerated Discharge Activity: Resume usual activity Patient Instructions: Minor Head Injury (ED) Coding Level of Care Code ED Planetarium Sky Show Technician for Rober Arellano
[2020-09-30] MEDS: HYDROcodone-acetaminophen 7.5-325 mg Tablet 1 TAB PO (00:32)
[2020-09-30 00:36] VITALS: BP 112/70; PULSE 85; RESP 16; O2SAT 94
== END 2020-09-30 00:37 | disposition home or self-care (01) ==
PROVIDERS: Emergency Provider Emergency Medicine; PCP Internal Medicine
DX: S09.8XXA Other specified injuries of head, initial encounter (principal); Z79.4 Long term (current) use of insulin; I50.9 Heart failure, unspecified; E11.9 Type 2 diabetes mellitus without complications; F17.210 Nicotine dependence, cigarettes, uncomplicated; W01.0XXA Fall on same level from slipping, tripping and stumbling without subsequent striking against object, initial encounter
CPT/HCPCS: 70450; 73080; 99283

== ENCOUNTER 2020-10-08 22:19 | Emergency (ER) | payer MEDICARE, MEDICAID, SELFPAY ==
[2020-10-08 22:24] VITALS: BP 122/83; PULSE 102; RESP 18; O2SAT 95; BMI 33.3
[2020-10-08 22:28] VITALS: BP 120/69; PULSE 91; RESP 20; O2SAT 94
--- NOTE | 2020-10-08 22:41 | XRR_ITS ---
PROCEDURE INFORMATION: Exam: XR Chest Exam date and time: 10/08/2020 10:41 PM Age: 55 years old Clinical indication: Cough and shortness of breath; Additional info: SOB fever TECHNIQUE: Imaging protocol: XR of the chest. Views: 1 view. COMPARISON: CR XR chest 1V portable [id number] 08/13/2020 11:04 AM FINDINGS: Lungs: Lungs are clear. Pleural spaces: There is no pleural effusion or pneumothorax. Heart/Mediastinum: Cardiomediastinal contours are unremarkable. Bones/joints: Bones are unremarkable. XR/XR chest 1V portable [id number] IMPRESSION: No acute findings.
--- NOTE | 2020-10-09 00:06 | W.ED.FEVER ---
HPI - Fever General: Chief Complaint: Fever Stated Complaint: weakness and fever Time Seen by Provider: 10/08/20 22:26 History of Present Illness: HPI Narrative: 55-year-old female with a history of COPD complaining of fever, generalized weakness, body aches, cough and shortness of breath today. She also has symptoms of nausea. No known sick contacts. No change in her urine. MD elicited complaint: fever, malaise and weakness Pertinent past history: other Onset (ago): hour(s) Exacerbating factors: nothing Relieving factors: nothing Associated symptoms: Reports flank pain, chills, cough, diarrhea, headache(s), nasal congestion, nausea, short of breath and sore throat; Deny chest pain, rhinorrhea, stiffness or vomiting Treatments prior to arrival fever: none Review of Systems Const: Reports: fever(s), chills and body aches ENMT: Reports: nasal congestion Card: Denies: chest pain Resp: Reports: dyspnea, non-productive cough and wheezing; Denies: productive cough GI: Reports: nausea and diarrhea; Denies: vomiting : Reports: flank pain Neuro: Reports: headache(s) PFSH ED PFSH: Medical History Anxiety Bilateral primary osteoarthritis of hip Chronic back pain Congestive heart failure Diabetes mellitus H/O Belkys-Valenzuela syndrome (~07/2019) EGD at [facility]. EGD 10/26 negative. MONTANO (nonalcoholic steatohepatitis) Suicidal behavior Surgical History H/O cervical spine surgery H/O colonoscopy History of esophagogastroduodenoscopy Social History Smoking and tobacco status: current every day smoker cigarettes Packs smoked per day: 0.5 Alcohol intake: never History of recent travel: No Current gender identity: Female Physical Exam Const: GENERAL APPEARANCE: well developed ORIENTATION/CONSCIOUSNESS: Yes oriented to person, Yes oriented to place and Yes oriented to time HENMT: COMMON NORMALS: normocephalic and external ears normal HEAD & SCALP: normocephalic EXTERNAL EAR: Yes external ears normal Eye: COMMON NORMALS: Equal, round and reactive pupils present, EOMs intact bilaterally and conjunctivae normal EYELID: eyelids normal CONJUNCTIVA: Yes conjunctivae normal PUPIL: Yes Equal, round and reactive pupils present Neck/C-Spine: GENERAL: No tracheal deviation Chest: COMMONS NORMALS: normal inspection of the chest Resp: COMMON NORMALS: clear to auscultation bilaterally EFFORT & INSPECTION: No tachypneic, No respiratory distress, No retractions, No uses accessory muscles and No tracheal deviation AUSCULTATION: clear to auscultation bilaterally, no rhonchi, no wheezes and lung sounds not diminished Cardio: COMMON NORMALS: regular rate and regular rhythm RATE: regular rate RHYTHM: regular rhythm HEART SOUNDS: no murmurs PERIPHERAL PULSES: radial pulses present GI: INSPECTION: No abdominal distension AUSCULTATION: No Hyperactive bowel sounds present and No Hypoactive bowel sounds present PALPATION: No Guarding due to palpation present (GI) and No Rigid due to palpation PERCUSSION: no dullness to percussion and no tympanic to percussion Neuro: SENSORIUM/ORIENTATION: Yes oriented to person, Yes oriented to place and Yes oriented to time Psych: COMMON NORMALS: mental status grossly normal Skin: COMMON NORMALS: no rashes or lesions noted GENERAL SKIN EXAM: no rashes or lesions noted Course Vital Signs: Vital signs: Vital Signs Pulse Rate 91 10/08/20 22:28 Respiratory Rate 18 10/09/20 01:33 Blood Pressure 120/69 10/08/20 22:28 Pulse Oximetry 96 10/09/20 01:33 MDM - Fever MDM Narrative: Medical decision making narrative: Fever, respiratory symptoms, cough in a non-Covid vaccinated patient with a history of COPD. White blood cell count mildly low. She is actually mildly pancytopenic, with a decreased platelet count. Liver enzymes are mildly elevated. This could be from COVID-19. Also could be from something like tick fever. She will be covered with doxycycline. Tick panel has been sent. COVID-19 PCR has been sent. Chest x-ray is negative. She will follow up with her doctor. Symptomatic treatment otherwise. Lab Data: Labs: Lab Results 10/09/20 10/09/20 10/09/20 Range/Units 00:45 00:45 00:45 WBC 3.8 L (4.0-10.0) 10^3/ uL RBC 3.68 L (4.1-5.3) 10^6/u L Hgb 10.3 L (11.5-15.3) g/dL Hct 33.4 L (37.0-47.0) % MCV 90.8 (81-99) fL MCH 28.0 (28.0-34.0) pg MCHC 30.8 (30.0-36.0) g/dL RDW 19.1 H (12.1-15.1) % Plt Count 78 L (130-400) 10^3/c mm MPV 10.0 (7.4-10.4) fL Neut % (Auto) 81.1 % Lymph % (Auto) 8.4 % [place] % (Auto) 8.4 % Eos % (Auto) 1.3 % Baso % (Auto) 0.5 % Neut # (Auto) 3.09 (1.8-7.7) 10^3/u L Lymph # (Auto) 0.3 L (0.8-4.8) 10^3/u L [place] # (Auto) 0.3 (0.2-0.9) 10^3/u L Eos # (Auto) 0.1 (0.0-0.8) 10^3/u L Baso # (Auto) 0.0 (0.0-0.1) 10^3/u L Nucleated RBC % (a uto) 0 % Nucleated RBCs # 0.0 /100WBC D-Dimer 0.29 (0-0.59) ug/mIFE U Sodium 139 (136-145) mmol/L Potassium 3.8 (3.5-5.1) mmol/L Chloride 104 (98-107) mmol/L Carbon Dioxide 23 (22-29) mmol/L Anion Gap 15.8 (5-19) BUN 6 (6-20) mg/dL Creatinine 0.6 (0.5-0.9) mg/dL GFR Calculation 104.6 (90-130) mL/min Glucose 121 H (65-115) mg/dL Calculated Osmolal ity 287 (285-295) mOsm/k g Calcium 8.8 (8.5-10.5) mg/dL Total Bilirubin 0.8 (0.15-1.2) mg/dL AST 110 H (0-32) U/L ALT 58 H (0-33) U/L Alkaline Phosphata se 160 H (35-105) IU/L Troponin T Baselin e (0-10) ng/L Troponin T 120 Min nikolski (0-10) ng/L Delta Troponin T (0-10) ABS# C-Reactive Protein 4.2 (0.0-4.9) mg/L NT-Pro-B Natriuret Pep 42 (0-125) pg/mL Total Protein 4.9 L (6.6-8.7) g/dL Albumin 2.7 L (3.5-5.2) g/dL Globulin 2.2 (1.3-4.6) g/dL Procalcitonin 0.06 (0-0.5) ng/mL 10/09/20 10/09/20 Range/Units 00:45 01:44 WBC (4.0-10.0) 10^3/ uL RBC (4.1-5.3) 10^6/u L Hgb (11.5-15.3) g/dL Hct (37.0-47.0) % MCV (81-99) fL MCH (28.0-34.0) pg MCHC (30.0-36.0) g/dL RDW (12.1-15.1) % Plt Count (130-400) 10^3/c mm MPV (7.4-10.4) fL Neut % (Auto) % Lymph % (Auto) % [place] % (Auto) % Eos % (Auto) % Baso % (Auto) % Neut # (Auto) (1.8-7.7) 10^3/u L Lymph # (Auto) (0.8-4.8) 10^3/u L [place] # (Auto) (0.2-0.9) 10^3/u L Eos # (Auto) (0.0-0.8) 10^3/u L Baso # (Auto) (0.0-0.1) 10^3/u L Nucleated RBC % (a uto) % Nucleated RBCs # /100WBC D-Dimer (0-0.59) ug/mIFE U Sodium (136-145) mmol/L Potassium (3.5-5.1) mmol/L Chloride (98-107) mmol/L Carbon Dioxide (22-29) mmol/L Anion Gap (5-19) BUN (6-20) mg/dL Creatinine (0.5-0.9) mg/dL GFR Calculation (90-130) mL/min Glucose (65-115) mg/dL Calculated Osmolal ity (285-295) mOsm/k g Calcium (8.5-10.5) mg/dL Total Bilirubin (0.15-1.2) mg/dL AST (0-32) U/L ALT (0-33) U/L Alkaline Phosphata se (35-105) IU/L Troponin T Baselin e 6 (0-10) ng/L Troponin T 120 Min n[place]ols[place] 6.00 (0-10) ng/L Delta Troponin T 0 (0-10) ABS# C-Reactive Protein (0.0-4.9) mg/L NT-Pro-B Natriuret Pep (0-125) pg/mL Total Protein (6.6-8.7) g/dL Albumin (3.5-5.2) g/dL Globulin (1.3-4.6) g/dL Procalcitonin (0-0.5) ng/mL Discharge Plan Discharge Patient Disposition: Home Clinical Impression: Acute febrile illness Condition: Stable Prescriptions: New hydrocodone-acetaminophen 5-325 mg tablet 1 tab PO Q8H PRN (Reason: pain) Qty: 7 RF: 0 Zofran 4 mg tablet 4 mg PO Q6H PRN (Reason: nausea and vomiting) Qty: 10 RF: 0 doxycycline hyclate 100 mg capsule 100 mg PO BID 7 Days Qty: 14 RF: 0 No Action ciclopirox 8 % solution 1 applic topical DAILY Qty: 6.6 RF: 4 nitroglycerin [Nitrostat] 0.4 mg tablet, sublingual 0.4 mg SUBLINGUAL PRN PRN (Reason: Chest Pain) RF: 0 Tresiba FlexTouch U-200 200 unit/mL (3 mL) insulin pen 60 unit SUBCUT DAILY RF: 0 insulin lispro [Humalog KwikPen Insulin] 100 unit/mL insulin pen 20 unit SUBCUT TID Qty: 15 RF: 3 buspirone 30 mg tablet 30 mg PO BID PRN (Reason: anxiety) 30 Days Qty: 60 RF: 3 trazodone 150 mg tablet 150 mg PO BEDTIME PRN (Reason: Sleep) 30 Days Qty: 30 RF: 3 (DME) ReliOn Prime Test Strips Strip See Rx Instructions .ROUTE .MEDSUPPLY Qty: 120 RF: 2 insulin lispro [Humalog KwikPen Insulin] 100 unit/mL Insulin Pen See Rx Instructions .ROUTE .COMPLEX RF: 0 ondansetron HCl [Zofran] 8 mg Tablet 8 mg PO Q12H PRN (Reason: NAUSEA/VOMITING) RF: 0 chlorpromazine 50 mg Tablet 50 mg PO BID RF: 0 albuterol sulfate 90 mcg/actuation HFA aerosol inhaler 2 inh INHALATION Q4H PRN (Reason: shortness of breath or wheezing) Qty: 18 RF: 0 Discharge Orders: Discharge ED (Routine); Ordered 10/09/20 Ordered By: Pablito Pitts Referrals: Eber Garsia DO [Primary Care Provider] - 4-7 days Activity Restrictions/Additional Instructions: Return for worsening symptoms despite treatment. Drink plenty of fluids. You should continue to quarantine at home until your Covid test result is back. Coding Level of Care Code ED Passenger Car Upholsterer Apprentice for Chg Fwd Exam Comprehensive
[2020-10-09 00:08] VITALS: RESP 18
[2020-10-09] MEDS: ondansetron 2 mg/ML SDV 2 mL 4 MG IVP (00:08)
[2020-10-09] MEDS: morphine 4 mg/mL SDV 1 mL IVP ×2 (00:08→01:33)
[2020-10-09] MEDS: sodium chloride 0.9% 1,000 ML 999 ML IV (00:14)
[2020-10-09] MEDS: acetaminophen 325 mg Tablet 650 MG PO (00:14)
--- NOTE | 2020-10-09 00:42 | ECG_ITS ---
[facility] Test Date: 2020-10-09 Pat Name: Kay Calles Department: Room: Gender: Female Class 1 Owner Operator: : 1965 Requested By: Pablito Owens Order Number: [id number] Reading MD: BRITTANIE FAYE Measurements Intervals [place] Rate: 76 P: 41 ME: 156 QRS: 44 QRSD: 83 T: 18 QT: 407 QTc: 460 Interpretive Statements SINUS RHYTHM LOW QRS VOLTAGE IN PRECORDIAL LEADS [QRS DEFLECTION < 1.0 mV IN CHEST LEADS] Compared to ECG 01/08/2020 07:03:12 Low QRS voltage now present T-wave abnormality no longer present Electronically Signed On 10-09-2020 17:05:45 CDT by BRITTANIE FAYE [email or web address]
[2020-10-09 01:03] LABS: Basophils % 0.5 %; Eosinophils # 0.1 10^3/uL (0.0-0.8); Eosinophils % 1.3 %; Hematocrit 33.4 % (37.0-47.0); Hemoglobin 10.3 g/dL (11.5-15.3); Lymphocytes # 0.3 10^3/uL (0.8-4.8); Lymphocytes % 8.4 %; Mean Corpuscular HGB Conc 30.8 g/dL (30.0-36.0); Mean Corpuscular Volume 90.8 fL (81-99); Monocytes # 0.3 10^3/uL (0.2-0.9); Monocytes % 8.4 %; Neutrophils # 3.09 10^3/uL (1.8-7.7); Neutrophils % 81.1 %; Nucleated Red Blood Cells % 0 %; Platelet Count 78 10^3/cmm (130-400); Red Blood Count 3.68 10^6/uL (4.1-5.3); Red Cell Distribution Width 19.1 % (12.1-15.1); White Blood Count 3.8 10^3/uL (4.0-10.0)
[2020-10-09 01:33] VITALS: RESP 18; O2SAT 96
[2020-10-09 01:35] LABS: D Dimer 0.29 ug/mIFEU (0-0.59)
[2020-10-09 01:38] LABS: Troponin(5th) Baseline 6 ng/L (0-10)
[2020-10-09 01:47] LABS: NT Pro B Type Natriuretic Pept 42 pg/mL (0-125); Procalcitonin 0.06 ng/mL (0-0.5)
[2020-10-09 01:59] LABS: Alanine Aminotransferase 58 U/L (0-33); Albumin Level 2.7 g/dL (3.5-5.2); Alkaline Phosphatase 160 IU/L (35-105); Anion Gap 15.8 (5-19); Aspartate Amino Transferase 110 U/L (0-32); Blood Urea Nitrogen 6 mg/dL (6-20); C Reactive Protein 4.2 mg/L (0.0-4.9); Calcium 8.8 mg/dL (8.5-10.5); Carbon Dioxide 23 mmol/L (22-29); Chloride 104 mmol/L (98-107); Globulin 2.2 g/dL (1.3-4.6); Glomerular Filtration Rate 104.6 mL/min (90-130); Glucose 121 mg/dL (65-115); Osmolality Calculated 287 mOsm/kg (285-295); Potassium 3.8 mmol/L (3.5-5.1); Sodium 139 mmol/L (136-145); Total Bilirubin 0.8 mg/dL (0.15-1.2); Total Protein 4.9 g/dL (6.6-8.7)
[2020-10-09 02:15] LABS: Troponin 5 2HR Delta 0 ABS# (0-10)
[2020-10-09 03:53] VITALS: BP 172/100; PULSE 70; RESP 18; TEMP 37.1; O2SAT 95
[2020-10-09 04:03] VITALS: BP 172/87
[2020-10-09 04:04] VITALS: BP 172/87; PULSE 70; RESP 16; TEMP 37; O2SAT 95
[2020-10-14 09:21] LABS: Lyme AB Screen <0.90 index
[2020-10-14 09:22] LABS: E. Chaffeensis AB IGG <1:64; E. Chaffeensis AB IGM <1:20; RMSF IGG NOT DETECTED; RMSF IGM NOT DETECTED
== END 2020-10-09 04:00 | disposition home or self-care (01) ==
PROVIDERS: Emergency Provider Emergency Medicine; PCP Internal Medicine
DX: R50.9 Fever, unspecified (principal); Z79.4 Long term (current) use of insulin; I50.9 Heart failure, unspecified; E11.9 Type 2 diabetes mellitus without complications; F17.210 Nicotine dependence, cigarettes, uncomplicated
CPT/HCPCS: 36415; 71045; 80053; 83880; 84145; 84484; 85025; 85378; 86140; 86618; 86666; 86757; 93005; 96361; 96374; 96375; 96376; 99284; 99291; J2270; J2405; J7030

== ENCOUNTER 2020-10-13 14:55 | Emergency (ER) | payer MEDICARE, MEDICAID, SELFPAY ==
[2020-10-13 15:26] VITALS: BP 109/74; PULSE 79; RESP 16; TEMP 37.7; O2SAT 98; BMI 39.6
[2020-10-13 21:45] VITALS: O2SAT 96; O2SAT 97
[2020-10-13] MEDS: ibuprofen 600 mg Tablet PO (22:11)
[2020-10-13] MEDS: predniSONE 20 mg Tablet 40 MG PO (22:57)
--- NOTE | 2020-10-13 23:04 | ED_ITS ---
HPI - COVID General: Chief Complaint: COVID symptoms Stated Complaint: COVID+:LOW 02(IN 80'S), H/A,SOB,FEVER Time Seen by Provider: 10/13/20 20:53 Triage information: Has fever, cough or shortness of breath . Exposure to COVID + person last 14 days History of Present Illness: HPI Narrative: The patient is a 55-year-old female with past medical history diabetes, CHF, MONTANO. The patient tested positive today at [facility] for Covid. She has been having symptoms since October 08. She is in no respiratory distress and comfortable. Her primary sent her from the clinic to here for antibody injection. She offers no other complaints. She says she is allergic to Tylenol and ibuprofen but that she is not actually allergic she just was told not to take them because of her liver disease. She says she takes ibuprofen sparingly at home. She had a slightly hypoxic episode at the clinic today where she was in the upper 80s but she said she quickly rebounded and has not been hypoxic since. She complains of mild elevated temperature but no significant fevers at home MD complaint: known COVID positive Prior covid testing: yes, results known COVID 19 common symptoms: positive fever(s), chills, fatigue, body aches, headache(s) and nausea; negative cough, non-productive cough, productive cough, dyspnea, throat pain, nasal congestion, vomiting or diarrhea COVID 19 other sytmptoms: negative chest pain, requiring oxygen, respiratory distress or cyanosis Onset (ago): day(s) (5) Severity: mild Pertinent comorbid conditions: diabetes Treatment prior to arrival: none COVID Results: SARS-CoV-2 Antigen (Rapid) Negative (Negative) 02/05/20 15:23 02/05/20 Review of Systems General: Reports: 10 or more systems reviewed and unremarkable except in HPI and below Const: Reports: fever(s), chills, body aches and fatigue Eyes: Denies: change in vision, blurry vision or eye redness ENMT: Denies: throat pain or nasal congestion Card: Denies: chest pain Resp: Denies: dyspnea, productive cough or non-productive cough GI: Reports: nausea; Denies: vomiting or diarrhea : Denies: flank pain, difficulty voiding, urinary frequency or urinary urgency Musc: Denies: neck pain, back pain, extremity pain, joint pain, joint redness, limited range of motion or muscle weakness Skin/Breast: Denies: rash, pruritus, erythema, skin pain or skin tenderness Neuro: Reports: headache(s) Psych: Denies: anxiety or depression Endo: Denies: polyuria All/Imm: Denies: urticaria, throat swelling or tongue swelling PFSH ED PFSH: Medical History Anxiety Bilateral primary osteoarthritis of hip Chronic back pain Congestive heart failure Diabetes mellitus H/O Belkys-Valenzuela syndrome (~07/2019) EGD at [facility]. EGD 10/26 negative. MONTANO (nonalcoholic steatohepatitis) Suicidal behavior Surgical History H/O cervical spine surgery H/O colonoscopy History of esophagogastroduodenoscopy Social History Smoking and tobacco status: current every day smoker cigarettes Packs smoked per day: 0.5 Alcohol intake: never History of recent travel: No Current gender identity: Female Physical Exam Const: COMMON NORMALS: no acute distress, average body habitus, patient oriented x3, no limitations, healthy appearing, alert and well nourished GENERAL APPEARANCE: cooperative, comfortable, well kempt and well developed ORIENTATION/CONSCIOUSNESS: Yes awake, Yes oriented to person, Yes oriented to place and Yes oriented to time HENMT: COMMON NORMALS: normocephalic, external ears normal and Normal external nose present HEAD & SCALP: normal to inspection and normocephalic NOSE: Normal external nose present EXTERNAL EAR: Yes external ears normal MOUTH: Normal oral and palatal mucosa present THROAT: posterior oropharynx normal Eye: COMMON NORMALS: Equal, round and reactive pupils present and EOMs intact bilaterally GENERAL EYE: appearance normal, both eyes and all related structures PUPIL: Yes Equal, round and reactive pupils present Neck/C-Spine: COMMON NORMALS: full ROM, no lymphadenopathy, no meningeal signs and no JVD GENERAL: Yes normal visual inspection Lymph: LYMPHATIC: no lymphadenopathy noted Chest: COMMONS NORMALS: normal inspection of the chest and normal palpation of entire chest wall Resp: COMMON NORMALS: normal respiratory effort, No retractions, No use of accessory muscles, clear to auscultation bilaterally and percussion normal EFFORT & INSPECTION: Yes able to speak in complete sentences AUSCULTATION: c lear to auscultation bilaterally PERCUSSION: percussion normal Cardio: COMMON NORMALS: no JVD, regular rate, regular rhythm, S1 normal heart sound present, S2 normal heart sound present and Peripheral pulses 2+ throughout RATE: regular rate RHYTHM: regular rhythm HEART SOUNDS: S1 normal heart sound present and S2 normal heart sound present PERIPHERAL PULSES: Peripheral pulses 2+ throughout GI: COMMON NORMALS: Normal to inspection, nondistended, normoactive bowel sounds present, Soft to palpation, non-tender and no masses INSPECTION: Yes normal to inspection PALPATION: Yes Soft to palpation : COMMON NORMALS: Yes no CVA tenderness BLADDER/KIDNEY EXAM: Yes no CVA tenderness Back/Pelvis: COMMON NORMALS: no CVA tenderness, thoracic and lumbar spine normal to inspection, no thoracic nor lumbar tenderness and thoraco-lumbar ROM normal Extremity: COMMON NORMALS: normal to inspection, full ROM, capillary refill normal, no joint enlargement and no pedal edema GENERAL: Yes normal exam except as noted Neuro: COMMON NORMALS: patient oriented x3, CN's II-XII intact bilaterally, moves all extremities, no focal motor deficits, no sensory deficits noted and gait normal SENSORIUM/ORIENTATION: Yes alert, Yes oriented to person, Yes oriented to place and Yes oriented to time MENINGEAL SIGNS: Yes no meningeal signs Psych: COMMON NORMALS: mental status grossly normal, Normal thought process present, cooperative, normal affect and speech normal APPEARANCE: Yes well kempt ATTITUDE: Yes calm SPEECH: Yes normal speech THOUGHT PROCESS: Normal thought process present Skin: COMMON NORMALS: no rashes or lesions noted GENERAL SKIN EXAM: no rashes or lesions noted Course Vital Signs: Vital signs: Vital Signs Temperature 99.8 F H 10/13/20 15:26 Pulse Rate 79 10/13/20 15:26 Respiratory Rate 16 10/13/20 15:26 Blood Pressure 109/74 10/13/20 15:26 Pulse Oximetry 97 10/13/20 21:45 MDM - COVID MDM Narrative: Medical decision making narrative: The patient comes to the ER for an antibiotic injection for Covid. She tested positive today at [facility]. There was a report that she was satting in the upper 80s there was for a brief moment and likely any accurate. I did a home O2 eval on her here and she did not qualify as she did not drop her sats. She has been in the upper 90s. Temp mildly elevated at 99.8. She was given ibuprofen. She is in no respiratory distress but does have diabetes, CHF, liver disease, and qualifies for the antibody injection. COVID Results: SARS-CoV-2 Antigen (Rapid) Negative (Negative) 02/05/20 15:23 02/05/20 Discharge Plan Discharge Patient Disposition: Home Clinical Impression: COVID-19 Condition: Stable Prescriptions: No Action ciclopirox 8 % solution 1 applic topical DAILY Qty: 6.6 RF: 4 nitroglycerin [Nitrostat] 0.4 mg tablet, sublingual 0.4 mg SUBLINGUAL PRN PRN (Reason: Chest Pain) RF: 0 Tresiba FlexTouch U-200 200 unit/mL (3 mL) insulin pen 60 unit SUBCUT DAILY RF: 0 insulin lispro [Humalog KwikPen Insulin] 100 unit/mL insulin pen 20 unit SUBCUT TID Qty: 15 RF: 3 buspirone 30 mg tablet 30 mg PO BID PRN (Reason: anxiety) 30 Days Qty: 60 RF: 3 trazodone 150 mg tablet 150 mg PO BEDTIME PRN (Reason: Sleep) 30 Days Qty: 30 RF: 3 (DME) ReliOn Prime Test Strips Strip See Rx Instructions .ROUTE .MEDSUPPLY Qty: 120 RF: 2 insulin lispro [Humalog KwikPen Insulin] 100 unit/mL Insulin Pen See Rx Instructions .ROUTE .COMPLEX RF: 0 hydrocodone-acetaminophen 5-325 mg tablet 1 tab PO Q8H PRN (Reason: pain) Qty: 7 RF: 0 Zofran 4 mg tablet 4 mg PO Q6H PRN (Reason: nausea and vomiting) Qty: 10 RF: 0 doxycycline hyclate 100 mg capsule 100 mg PO BID 7 Days Qty: 14 RF: 0 ondansetron HCl [Zofran] 8 mg Tablet 8 mg PO Q12H PRN (Reason: NAUSEA/VOMITING) RF: 0 chlorpromazine 50 mg Tablet 50 mg PO BID RF: 0 albuterol sulfate 90 mcg/actuation HFA aerosol inhaler 2 inh INHALATION Q4H PRN (Reason: shortness of breath or wheezing) Qty: 18 RF: 0 Discharge Orders: Discharge ED (Routine); Ordered 10/13/20 Ordered By: Mookie Purcell Referrals: Eber Garsia, [Primary Care Provider] - Discharge Diet: Advance as tolerated Discharge Activity: Resume usual activity Patient Instructions: Opioid Safety, Upper Respiratory Infection - Adult Activity Restrictions/Additional Instructions: You have tested for positive and received the Covid antibody injection here. Please continue to drink lots of fluids at home and follow-up with your doctor in a couple days to monitor improvement of your symptoms. Return to the ER at anytime with worsening symptoms. Avoid close contact with other people and try to stay home and self quarantine until you are disease-free. Wash your hands frequently. If you do need to go on public please wear a mask to help not spread it to others as well. Coding Level of Care Code ED District Sales Representative for Rober Arellano
[2020-10-13 23:50] LABS: Eosinophils % 0.7 %; Hemoglobin 10.7 g/dL (11.5-15.3); Lymphocytes # 0.5 10^3/uL (0.8-4.8); Lymphocytes % 38.7 %; Mean Corpuscular HGB Conc 32.4 g/dL (30.0-36.0); Mean Corpuscular Hemoglobin 27.8 pg (28.0-34.0); Mean Corpuscular Volume 85.7 fL (81-99); Monocytes # 0.1 10^3/uL (0.2-0.9); Neutrophils % 52.6 %; Nucleated Red Blood Cells % 0 %; Platelet Count 62 10^3/cmm (130-400); Red Blood Count 3.85 10^6/uL (4.1-5.3); White Blood Count 1.4 10^3/uL (4.0-10.0)
[2020-10-13 23:52] LABS: Neutrophils # 0.72 10^3/uL (1.8-7.7)
[2020-10-13 23:55] LABS: Alanine Aminotransferase 51 U/L (0-33); Albumin Level 2.9 g/dL (3.5-5.2); Alkaline Phosphatase 184 IU/L (35-105); Anion Gap 12.7 (5-19); Aspartate Amino Transferase 93 U/L (0-32); Blood Urea Nitrogen 4 mg/dL (6-20); Calcium 8.1 mg/dL (8.5-10.5); Carbon Dioxide 22 mmol/L (22-29); Chloride 110 mmol/L (98-107); Globulin 2.2 g/dL (1.3-4.6); Glucose 93 mg/dL (65-115); Osmolality Calculated 289 mOsm/kg (285-295); Potassium 3.7 mmol/L (3.5-5.1); Sodium 141 mmol/L (136-145); Total Bilirubin 0.7 mg/dL (0.15-1.2); Total Protein 5.1 g/dL (6.6-8.7)
[2020-10-13 23:56] VITALS: BP 111/57; PULSE 69; RESP 20; O2SAT 95
[2020-10-13 23:57] VITALS: O2SAT 95
[2020-10-13] MEDS: sodium chloride 0.9% 1,000 ML 999 ML IV (23:58)
[2020-10-13] MEDS: azithromycin 500 MG in sodium chloride 0.9% 250 ML 250 MG IV (23:58)
--- NOTE | 2020-10-14 00:09 | PC.NURSE ---
report to Mihir JUAREZ
[2020-10-14] MEDS: HYDROcodone-acetaminophen 5-325 mg Tablet 1 TAB PO (00:13)
[2020-10-14 00:17] VITALS: BP 108/65; PULSE 72; RESP 20; O2SAT 95
[2020-10-14 00:34] VITALS: BP 108/65; PULSE 78; RESP 16; O2SAT 94
[2020-10-14 00:57] VITALS: BP 102/71; PULSE 69; RESP 16; O2SAT 93
[2020-10-14 01:16] VITALS: BP 109/60; PULSE 66; RESP 16; O2SAT 92
[2020-10-14 01:45] VITALS: BP 112/48; PULSE 66; RESP 16; O2SAT 90
[2020-10-14 02:30] VITALS: BP 108/48; PULSE 60; RESP 18; TEMP 37.2; O2SAT 93
--- NOTE | 2020-10-14 11:07 | DCPLANNER ---
brood station manager had message to schedule a follow up appointment for patient with oncology. brood station manager [facility], gave clinic patients information. A follow up appointment was scheduled for Monday, November 02, 2020 at 10:00, appointment is out 2 weeks due to patient being COVID positive. Clinic will call patient with appointment information.
--- NOTE | 2020-10-18 13:42 | DCPLANNER ---
account relationship manager had message that patient had received the BAM infusion. account relationship manager called phone number [phone], unable to speak with patient at this time, a voicemail was left for patient to return field nurse case manager phone call.
--- NOTE | 2020-11-11 11:36 | DCPLANNER ---
Patient had a follow up appointment scheduled for 11.02.20 with [facility] - patient did attend appointment.
== END 2020-10-14 02:31 | disposition home or self-care (01) ==
PROVIDERS: Emergency Provider Family Medicine; PCP Internal Medicine
DX: U07.1 COVID-19 (principal); Z79.4 Long term (current) use of insulin; I50.9 Heart failure, unspecified; E11.9 Type 2 diabetes mellitus without complications; F17.210 Nicotine dependence, cigarettes, uncomplicated
CPT/HCPCS: 80053; 85025; 96365; 96367; 99284; J0456; J7030; J7050; J7512

== ENCOUNTER 2020-10-15 23:49 | Emergency (ER) | payer MEDICARE, MEDICAID, SELFPAY ==
[2020-10-15 23:57] VITALS: BP 138/70; PULSE 69; RESP 18; TEMP 36.9; O2SAT 98; BMI 33.3
--- NOTE | 2020-10-16 00:08 | ECG_ITS ---
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 Measurements Intervals [place] Rate: 59 P: 42 ND: 168 QRS: 38 QRSD: 86 T: 31 QT: 461 QTc: 458 Interpretive Statements SINUS BRADYCARDIA LOW QRS VOLTAGE IN PRECORDIAL LEADS [QRS DEFLECTION < 1.0 mV IN CHEST LEADS] Compared to ECG 10/09/2020 01:49:24 Sinus rhythm no longer present Electronically Signed On 10-17-2020 17:15:40 CDT by Joel Garza M.D. [id number]
--- NOTE | 2020-10-16 00:08 | XRR_ITS ---
PROCEDURE INFORMATION: Exam: XR Chest Exam date and time: 10/16/2020 12:08 AM Age: 55 years old Clinical indication: Cough and shortness of breath; Prior surgery; Surgery type: Csp fusion; Patient HX: Cough/sob. Covid +; Additional info: Cp TECHNIQUE: Imaging protocol: XR of the chest. Views: 1 view. COMPARISON: CR (CHEST, ) 10/08/2020 11:31 PM FINDINGS: Lungs: Mild nonspecific bilateral pulmonary opacities most consistent with pneumonia. Pleural spaces: Unremarkable. No pleural effusion. No pneumothorax. Heart/Mediastinum: Unremarkable. No cardiomegaly. Bones/joints: Stable postoperative metallic fixation of the cervical spine with or without metallic artifact. XR/XR chest 1V portable [id number] IMPRESSION: Mild nonspecific bilateral pulmonary opacities most consistent with pneumonia.
--- NOTE | 2020-10-16 01:18 | W.ED.CHESTPA ---
HPI - Chest Pain General: Chief Complaint: Chest Pain Stated Complaint: COVID Time Seen by Provider: 10/16/20 00:51 Source: patient and EMS Mode of arrival: EMS Limitations: no limitations History of Present Illness: HPI narrative: 55-year-old female states that she was diagnosed with Covid on Sunday. She states that since then she has been having a sharp left-sided chest pain. She denies any shortness of breath or fever. States pain is been constant nature. Patient's pulse ox here is 98% on room air. Associated symptoms: Deny abdominal pain, dyspnea, fever(s), nausea or vomiting Review of Systems Const: Denies: fever(s), chills, body aches or change in appetite Eyes: Denies: blurry vision or eye discomfort ENMT: Denies: throat pain or dental pain Card: Reports: chest pain Resp: Denies: dyspnea GI: Denies: abdominal pain, nausea, vomiting or diarrhea : Denies: dysuria Musc: Denies: neck pain or back pain Skin/Breast: Denies: rash Neuro: Denies: headache(s) Psych: Denies: depression Girma/Lymph: Denies: easy bruising All/Imm: Denies: urticaria PFSH ED PFSH: Medical History Anxiety Bilateral primary osteoarthritis of hip Chronic back pain Congestive heart failure Diabetes mellitus H/O Belkys-Valenzuela syndrome (~07/2019) EGD at [facility]. EGD 10/26 negative. MONTANO (nonalcoholic steatohepatitis) Suicidal behavior Surgical History H/O cervical spine surgery H/O colonoscopy History of esophagogastroduodenoscopy Social History Smoking and tobacco status: current every day smoker cigarettes Packs smoked per day: 0.5 Alcohol intake: never History of recent travel: No Current gender identity: Female Physical Exam Const: COMMON NORMALS: no acute distress, patient oriented x3 and healthy appearing HENMT: COMMON NORMALS: normocephalic and atraumatic HEAD & SCALP: normocephalic and atraumatic Eye: COMMON NORMALS: Equal, round and reactive pupils present and EOMs intact bilaterally PUPIL: Yes Equal, round and reactive pupils present Neck/C-Spine: COMMON NORMALS: full ROM and supple Chest: COMMONS NORMALS: normal inspection of the chest and normal palpation of entire chest wall Resp: COMMON NORMALS: normal respiratory effort, No retractions, No use of accessory muscles and clear to auscultation bilaterally AUSCULTATION: clear to auscultation bilaterally Cardio: COMMON NORMALS: regular rate, regular rhythm and No murmurs present (Cardio) RATE: regular rate RHYTHM: regular rhythm GI: COMMON NORMALS: Normal to inspection, nondistended, normoactive bowel sounds present, Soft to palpation, non-tender and no masses PALPATION: Yes Soft to palpation Extremity: COMMON NORMALS: normal to inspection and full ROM Neuro: COMMON NORMALS: patient oriented x3, moves all extremities and no focal motor deficits Psych: COMMON NORMALS: mental status grossly normal, Normal thought process present and cooperative THOUGHT PROCESS: Normal thought process present Skin: COMMON NORMALS: no rashes or lesions noted and no wounds GENERAL SKIN EXAM: no rashes or lesions noted Course Vital Signs: Vital signs: Vital Signs Temperature 98.4 F 10/15/20 23:57 Pulse Rate 64 10/16/20 01:26 Respiratory Rate 22 H 10/16/20 01:29 Blood Pressure 132/76 10/16/20 01:26 Pulse Oximetry 96 10/16/20 01:29 MDM - Chest Pain MDM Narrative: Medical decision making narrative: Patient presents with chest pain likely from Covid. Her troponin and EKG here are normal no signs of acute coronary syndrome. X-ray shows changes consistent with Covid. She is not requiring oxygen. She is stable for discharge and is to follow-up with PCP and return if worsening. Lab Data: Labs: Lab Results 10/16/20 10/16/20 10/16/20 Range/Units 01:25 01:25 01:25 WBC 2.4 L (4.0-10.0) 10^3/ uL RBC 4.02 L (4.1-5.3) 10^6/u L Hgb 11.2 L (11.5-15.3) g/dL Hct 34.5 L (37.0-47.0) % MCV 85.8 (81-99) fL MCH 27.9 L (28.0-34.0) pg MCHC 32.5 (30.0-36.0) g/dL RDW 18.9 H (12.1-15.1) % Plt Count 81 L (130-400) 10^3/c mm MPV 11.4 H (7.4-10.4) fL Neut % (Auto) 49.1 % Lymph % (Auto) 42.5 % [place] % (Auto) 7.1 % Eos % (Auto) 1.3 % Baso % (Auto) 0.0 % Neut # (Auto) 1.18 L (1.8-7.7) 10^3/u L Lymph # (Auto) 1.0 (0.8-4.8) 10^3/u L [place] # (Auto) 0.2 (0.2-0.9) 10^3/u L Eos # (Auto) 0.0 (0.0-0.8) 10^3/u L Baso # (Auto) 0.0 (0.0-0.1) 10^3/u L Nucleated RBC % (a uto) 0 % Nucleated RBCs # 0.0 /100WBC Sodium 143 (136-145) mmol/L Potassium 3.5 (3.5-5.1) mmol/L Chloride 110 H (98-107) mmol/L Carbon Dioxide 23 (22-29) mmol/L Anion Gap 13.5 (5-19) BUN 5 L (6-20) mg/dL Creatinine 0.4 L (0.5-0.9) mg/dL GFR Calculation 167.0 H (90-130) mL/min Glucose 75 (65-115) mg/dL Calculated Osmolal ity 292 (285-295) mOsm/k g Calcium 7.9 L (8.5-10.5) mg/dL Total Bilirubin 0.8 (0.15-1.2) mg/dL AST 101 H (0-32) U/L ALT 51 H (0-33) U/L Alkaline Phosphata se 178 H (35-105) IU/L Troponin T Baselin e 7 (0-10) ng/L C-Reactive Protein 3.5 (0.0-4.9) mg/L NT-Pro-B Natriuret Pep 49 (0-125) pg/mL Total Protein 5.0 L (6.6-8.7) g/dL Albumin 3.1 L (3.5-5.2) g/dL Globulin 1.9 (1.3-4.6) g/dL Imaging Data^: CXR: Attestation: I personally reviewed and interpreted this imaging study as follows: Radiologist's impression: [address] [place] [address] XRay Report Signed Patient: Kay Calles Unit #: [id number] : 1965 Age/Sex: 55 / F ADM Date: 10/15/20 Loc: ER Room/Bed: Attending Dr: Ordering Provider/Ordering MD: Carmela Haro MD Date of Service: 10/16/20 Procedure(s): XR chest 1V portable [id number] Accession Number(s): [id number] Report Number: [id number] PROCEDURE INFORMATION: Exam: XR Chest Exam date and time: 10/16/2020 12:08 AM Age: 55 years old Clinical indication: Cough and shortness of breath; Prior surgery; Surgery type: Csp fusion; Patient HX: Cough/sob. Covid +; Additional info: Cp TECHNIQUE: Imaging protocol: XR of the chest. Views: 1 view. COMPARISON: CR (CHEST, ) 10/08/2020 11:31 PM FINDINGS: Lungs: Mild nonspecific bilateral pulmonary opacities most consistent with pneumonia. Pleural spaces: Unremarkable. No pleural effusion. No pneumothorax. Heart/Mediastinum: Unremarkable. No cardiomegaly. Bones/joints: Stable postoperative metallic fixation of the cervical spine with or without metallic artifact. XR/XR chest 1V portable [id number] IMPRESSION: Mild nonspecific bilateral pulmonary opacities most consistent with pneumonia. EKG Data^: EKG 1: Attestation: I personally reviewed and interpreted this EKG as follows: EKG interpretation date: 10/16/20 EKG interpretation time: 01:06 Interpretation: sinus leticia hr [address] or t wave abnormalities qrs 86 qtc 460 Discharge Plan Discharge Patient Disposition: Home Clinical Impression: COVID-19 Chest pain Qualifiers: Chest pain type: unspecified Qualified Code(s): R07.9 - Chest pain, unspecified Condition: Stable Prescriptions: No Action ciclopirox 8 % solution 1 applic topical DAILY Qty: 6.6 RF: 4 nitroglycerin [Nitrostat] 0.4 mg tablet, sublingual 0.4 mg SUBLINGUAL PRN PRN (Reason: Chest Pain) RF: 0 Tresiba FlexTouch U-200 200 unit/mL (3 mL) insulin pen 60 unit SUBCUT DAILY RF: 0 insulin lispro [Humalog KwikPen Insulin] 100 unit/mL insulin pen 20 unit SUBCUT TID Qty: 15 RF: 3 buspirone 30 mg tablet 30 mg PO BID PRN (Reason: anxiety) 30 Days Qty: 60 RF: 3 trazodone 150 mg tablet 150 mg PO BEDTIME PRN (Reason: Sleep) 30 Days Qty: 30 RF: 3 (DME) ReliOn Prime Test Strips Strip See Rx Instructions .ROUTE .MEDSUPPLY Qty: 120 RF: 2 insulin lispro [Humalog KwikPen Insulin] 100 unit/mL Insulin Pen See Rx Instructions .ROUTE .COMPLEX RF: 0 hydrocodone-acetaminophen 5-325 mg tablet 1 tab PO Q8H PRN (Reason: pain) Qty: 7 RF: 0 Zofran 4 mg tablet 4 mg PO Q6H PRN (Reason: nausea and vomiting) Qty: 10 RF: 0 ondansetron HCl [Zofran] 8 mg Tablet 8 mg PO Q12H PRN (Reason: NAUSEA/VOMITING) RF: 0 chlorpromazine 50 mg Tablet 50 mg PO BID RF: 0 albuterol sulfate 90 mcg/actuation HFA aerosol inhaler 2 inh INHALATION Q4H PRN (Reason: shortness of breath or wheezing) Qty: 18 RF: 0 azithromycin 250 mg tablet 250 mg PO DAILY 4 Days Qty: 4 RF: 0 Medrol (John) 4 mg tablets,dose pack See Rx Instructions .ROUTE .COMPLEX Qty: 21 RF: 0 Discharge Orders: Discharge ED (Routine); Ordered 10/16/20 Ordered By: Carmela Haro Referrals: Eber Garsia DO [Primary Care Provider] - Discharge Diet: Advance as tolerated Discharge Activity: Resume usual activity Patient Instructions: Chest Pain (ED) Coding Level of Care Code ED Sharples Machine Operator for Chg Fwd Exam Comprehensive
[2020-10-16 01:26] VITALS: BP 132/76; PULSE 64; RESP 18; O2SAT 96
[2020-10-16] MEDS: ondansetron 2 mg/ML SDV 2 mL 4 MG IVP (01:28)
[2020-10-16 01:29] VITALS: RESP 22; O2SAT 96
[2020-10-16] MEDS: morphine 4 mg/mL SDV 1 mL IVP (01:29)
[2020-10-16 01:32] LABS: Eosinophils % 1.3 %; Hematocrit 34.5 % (37.0-47.0); Hemoglobin 11.2 g/dL (11.5-15.3); Lymphocytes % 42.5 %; Mean Corpuscular HGB Conc 32.5 g/dL (30.0-36.0); Mean Corpuscular Hemoglobin 27.9 pg (28.0-34.0); Mean Corpuscular Volume 85.8 fL (81-99); Mean Platelet Volume 11.4 fL (7.4-10.4); Monocytes # 0.2 10^3/uL (0.2-0.9); Monocytes % 7.1 %; Neutrophils # 1.18 10^3/uL (1.8-7.7); Neutrophils % 49.1 %; Nucleated Red Blood Cells % 0 %; Platelet Count 81 10^3/cmm (130-400); Red Blood Count 4.02 10^6/uL (4.1-5.3); Red Cell Distribution Width 18.9 % (12.1-15.1); White Blood Count 2.4 10^3/uL (4.0-10.0)
[2020-10-16 01:56] LABS: Troponin(5th) Baseline 7 ng/L (0-10)
[2020-10-16 02:08] LABS: Alanine Aminotransferase 51 U/L (0-33); Albumin Level 3.1 g/dL (3.5-5.2); Alkaline Phosphatase 178 IU/L (35-105); Anion Gap 13.5 (5-19); Aspartate Amino Transferase 101 U/L (0-32); Blood Urea Nitrogen 5 mg/dL (6-20); C Reactive Protein 3.5 mg/L (0.0-4.9); Calcium 7.9 mg/dL (8.5-10.5); Carbon Dioxide 23 mmol/L (22-29); Chloride 110 mmol/L (98-107); Globulin 1.9 g/dL (1.3-4.6); Glucose 75 mg/dL (65-115); NT Pro B Type Natriuretic Pept 49 pg/mL (0-125); Osmolality Calculated 292 mOsm/kg (285-295); Potassium 3.5 mmol/L (3.5-5.1); Sodium 143 mmol/L (136-145); Total Bilirubin 0.8 mg/dL (0.15-1.2)
[2020-10-16 02:44] VITALS: BP 104/67; PULSE 68; RESP 18; O2SAT 99
== END 2020-10-16 02:46 | disposition home or self-care (01) ==
PROVIDERS: Emergency Provider Emergency Medicine; PCP Internal Medicine
DX: U07.1 COVID-19 (principal); R07.9 Chest pain, unspecified; Z79.4 Long term (current) use of insulin; I50.9 Heart failure, unspecified; E11.9 Type 2 diabetes mellitus without complications; F17.210 Nicotine dependence, cigarettes, uncomplicated
CPT/HCPCS: 71045; 80053; 83880; 84484; 85025; 86140; 93005; 96374; 96375; 99284; J2270; J2405

== ENCOUNTER 2020-10-30 18:03 | Emergency (ER) | payer MEDICARE, MEDICAID, SELFPAY ==
[2020-10-30 18:06] VITALS: BP 117/72; PULSE 81; RESP 22; TEMP 37.5; O2SAT 94; BMI 32.3
--- NOTE | 2020-10-30 18:07 | XRR_ITS ---
PROCEDURE INFORMATION: Exam: XR Chest Exam date and time: 10/30/2020 6:07 PM Age: 55 years old Clinical indication: Pain; Chest pressure; Additional info: Cp TECHNIQUE: Imaging protocol: XR of the chest. Views: 1 view. COMPARISON: CR (CHEST, ) 10/16/2020 12:09 AM FINDINGS: Lungs: Unremarkable. No consolidation. Pleural spaces: Unremarkable. No pleural effusion. No pneumothorax. Heart/Mediastinum: Unremarkable. No cardiomegaly. Bones/joints: Partially visualized ACDF at the lower cervical spine. XR/XR chest 1V portable [id number] IMPRESSION: No acute findings.
--- NOTE | 2020-10-30 18:07 | ECG_ITS ---
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 Measurements Intervals [place] Rate: 76 P: 14 VA: 148 QRS: 31 QRSD: 78 T: 27 QT: 382 QTc: 431 Interpretive Statements SINUS RHYTHM Compared to ECG 10/16/2020 01:06:38 Sinus bradycardia no longer present Electronically Signed On 10-31-2020 18:19:52 CDT by Donna Davis M.D. [id number]
--- NOTE | 2020-10-30 18:19 | W.ED.CHESTPA ---
HPI - Chest Pain General: Chief Complaint: Chest Pain Stated Complaint: CHEST PAIN Time Seen by Provider: 10/30/20 18:08 Source: patient and EMS Mode of arrival: EMS Limitations: no limitations History of Present Illness: HPI narrative: 55-year-old female who states that she had Covid last week and her symptoms resolved but states over the last day or 2 she started having chest pain especially with exertion. States been a sharp pain. States pain at rest is a 1 out of 10 with exertion is a 3 or 4 out of 10. Denies any dyspnea. Associated symptoms: Deny abdominal pain, dyspnea, fever(s), nausea or vomiting Review of Systems Const: Denies: fever(s), chills, body aches or change in appetite Eyes: Denies: blurry vision or eye discomfort ENMT: Denies: throat pain or dental pain Card: Reports: chest pain Resp: Denies: dyspnea GI: Denies: abdominal pain, nausea, vomiting or diarrhea : Denies: dysuria Musc: Denies: neck pain or back pain Skin/Breast: Denies: rash Neuro: Denies: headache(s) Psych: Denies: depression Girma/Lymph: Denies: easy bruising All/Imm: Denies: urticaria PFSH ED PFSH: Medical History Anxiety Bilateral primary osteoarthritis of hip Chronic back pain Congestive heart failure Diabetes mellitus H/O Belkys-Valenzuela syndrome (~07/2019) EGD at [facility]. EGD 10/26 negative. MONTANO (nonalcoholic steatohepatitis) Suicidal behavior Surgical History H/O cervical spine surgery H/O colonoscopy History of esophagogastroduodenoscopy Social History Smoking and tobacco status: current every day smoker cigarettes Packs smoked per day: 0.5 Alcohol intake: never History of recent travel: No Current gender identity: Female Physical Exam Const: COMMON NORMALS: no acute distress, patient oriented x3 and healthy appearing HENMT: COMMON NORMALS: normocephalic and atraumatic HEAD & SCALP: normocephalic and atraumatic Eye: COMMON NORMALS: Equal, round and reactive pupils present and EOMs intact bilaterally PUPIL: Yes Equal, round and reactive pupils present Neck/C-Spine: COMMON NORMALS: full ROM and supple Chest: COMMONS NORMALS: normal inspection of the chest and normal palpation of entire chest wall Resp: COMMON NORMALS: normal respiratory effort, No retractions, No use of accessory muscles and clear to auscultation bilaterally AUSCULTATION: clear to auscultation bilaterally Cardio: COMMON NORMALS: regular rate, regular rhythm and No murmurs present (Cardio) RATE: regular rate RHYTHM: regular rhythm GI: COMMON NORMALS: Normal to inspection, nondistended, normoactive bowel sounds present, Soft to palpation, non-tender and no masses PALPATION: Yes Soft to palpation Extremity: COMMON NORMALS: normal to inspection and full ROM Neuro: COMMON NORMALS: patient oriented x3, moves all extremities and no focal motor deficits Psych: COMMON NORMALS: mental status grossly normal, Normal thought process present and cooperative THOUGHT PROCESS: Normal thought process present Skin: COMMON NORMALS: no rashes or lesions noted and no wounds GENERAL SKIN EXAM: no rashes or lesions noted Course Vital Signs: Vital signs: Vital Signs Temperature 99.5 F 10/30/20 18:06 Pulse Rate 72 10/30/20 19:50 Respiratory Rate 18 10/30/20 19:50 Blood Pressure 125/57 10/30/20 19:50 Pulse Oximetry 93 10/30/20 19:50 MDM - Chest Pain MDM Narrative: Medical decision making narrative: Patient presents here with chest pain atypical in nature. I believe is likely pleuritic from her recent Covid. Her D-dimer is negative no signs of pulmonary embolism. Her troponin here is negative and do not believe it is acute coronary syndrome. She feels much improved we will place her on Naprosyn and hydrocodone. She is to follow-up with PCP and return if worsening. She understands agrees to plan. Lab Data: Labs: Lab Results 10/30/20 10/30/20 10/30/20 Range/Units 19:19 19:19 19:30 WBC 5.5 (4.0-10.0) 10^3/ uL RBC 3.65 L (4.1-5.3) 10^6/u L Hgb 10.4 L (11.5-15.3) g/dL Hct 31.2 L (37.0-47.0) % MCV 85.5 (81-99) fL MCH 28.5 (28.0-34.0) pg MCHC 33.3 (30.0-36.0) g/dL RDW 16.8 H (12.1-15.1) % Plt Count 109 L (130-400) 10^3/c mm MPV 9.7 (7.4-10.4) fL Neut % (Auto) 68.3 % Lymph % (Auto) 22.1 % Churchill % (Auto) 7.4 % Eos % (Auto) 1.6 % Baso % (Auto) 0.4 % Neut # (Auto) 3.78 (1.8-7.7) 10^3/u L Lymph # (Auto) 1.2 (0.8-4.8) 10^3/u L Churchill # (Auto) 0.4 (0.2-0.9) 10^3/u L Eos # (Auto) 0.1 (0.0-0.8) 10^3/u L Baso # (Auto) 0.0 (0.0-0.1) 10^3/u L Nucleated RBC % (a uto) 0 % Nucleated RBCs # 0.0 /100WBC D-Dimer (0-0.59) ug/mIFE U Sodium 140 (136-145) mmol/L Potassium 3.8 (3.5-5.1) mmol/L Chloride 107 (98-107) mmol/L Carbon Dioxide 24 (22-29) mmol/L Anion Gap 12.8 (5-19) BUN 7 (6-20) mg/dL Creatinine 0.4 L (0.5-0.9) mg/dL GFR Calculation 167.0 H (90-130) mL/min Glucose 102 (65-115) mg/dL Calculated Osmolal ity 288 (285-295) mOsm/k g Calcium 8.6 (8.5-10.5) mg/dL Total Bilirubin 0.5 (0.15-1.2) mg/dL AST 53 H (0-32) U/L ALT 28 (0-33) U/L Alkaline Phosphata se 136 H (35-105) IU/L Troponin T Baselin e 6 (0-10) ng/L Total Protein 5.2 L (6.6-8.7) g/dL Albumin 3.2 L (3.5-5.2) g/dL Globulin 2.0 (1.3-4.6) g/dL 10/30/20 Range/Units 19:57 WBC (4.0-10.0) 10^3/ uL RBC (4.1-5.3) 10^6/u L Hgb (11.5-15.3) g/dL Hct (37.0-47.0) % MCV (81-99) fL MCH (28.0-34.0) pg MCHC (30.0-36.0) g/dL RDW (12.1-15.1) % Plt Count (130-400) 10^3/c mm MPV (7.4-10.4) fL Neut % (Auto) % Lymph % (Auto) % Churchill % (Auto) % Eos % (Auto) % Baso % (Auto) % Neut # (Auto) (1.8-7.7) 10^3/u L Lymph # (Auto) (0.8-4.8) 10^3/u L Churchill # (Auto) (0.2-0.9) 10^3/u L Eos # (Auto) (0.0-0.8) 10^3/u L Baso # (Auto) (0.0-0.1) 10^3/u L Nucleated RBC % (a uto) % Nucleated RBCs # /100WBC D-Dimer 0.34 (0-0.59) ug/mIFE U Sodium (136-145) mmol/L Potassium (3.5-5.1) mmol/L Chloride (98-107) mmol/L Carbon Dioxide (22-29) mmol/L Anion Gap (5-19) BUN (6-20) mg/dL Creatinine (0.5-0.9) mg/dL GFR Calculation (90-130) mL/min Glucose (65-115) mg/dL Calculated Osmolal ity (285-295) mOsm/k g Calcium (8.5-10.5) mg/dL Total Bilirubin (0.15-1.2) mg/dL AST (0-32) U/L ALT (0-33) U/L Alkaline Phosphata se (35-105) IU/L Troponin T Baselin e (0-10) ng/L Total Protein (6.6-8.7) g/dL Albumin (3.5-5.2) g/dL Globulin (1.3-4.6) g/dL Imaging Data^: CXR: Attestation: I personally reviewed and interpreted this imaging study as follows: Radiologist's impression: [address] [address] XRay Report Signed Patient: Kay Calles Unit #: [id number] : 1965 Age/Sex: 55 / F ADM Date: 10/30/20 Loc: ER Room/Bed: Attending Dr: Ordering Provider/Ordering MD: Carmela Haro MD Date of Service: 10/30/20 Procedure(s): XR chest 1V portable [id number] Accession Number(s): [id number] Report Number: [id number] PROCEDURE INFORMATION: Exam: XR Chest Exam date and time: 10/30/2020 6:07 PM Age: 55 years old Clinical indication: Pain; Chest pressure; Additional info: Cp TECHNIQUE: Imaging protocol: XR of the chest. Views: 1 view. COMPARISON: CR (CHEST, ) 10/16/2020 12:09 AM FINDINGS: Lungs: Unremarkable. No consolidation. Pleural spaces: Unremarkable. No pleural effusion. No pneumothorax. Heart/Mediastinum: Unremarkable. No cardiomegaly. Bones/joints: Partially visualized ACDF at the lower cervical spine. XR/XR chest 1V portable [id number] IMPRESSION: No acute findings. Dictated By: Rocky Cagle DO EKG Data^: EKG 1: Attestation: I personally reviewed and interpreted this EKG as follows: EKG interpretation date: 10/30/20 EKG interpretation time: 18:33 Interpretation: nsr hr [address] or t wave abnormalities qrs 78 qtc 412 Discharge Plan Discharge Patient Disposition: Home Clinical Impression: Chest pain Qualifiers: Chest pain type: unspecified Qualified Code(s): R07.9 - Chest pain, unspecified Condition: Stable Prescriptions: New hydrocodone-acetaminophen 5-325 mg tablet 1 tab PO Q6H PRN (Reason: pain) Qty: 10 RF: 0 Naprosyn 500 mg tablet 500 mg PO BID PRN (Reason: pain) Qty: 20 RF: 0 No Action nitroglycerin [Nitrostat] 0.4 mg tablet, sublingual 0.4 mg SUBLINGUAL PRN PRN (Reason: Chest Pain) RF: 0 trazodone 150 mg tablet 150 mg PO BEDTIME PRN (Reason: Sleep) 30 Days Qty: 30 RF: 3 (DME) ReliOn Prime Test Strips Strip See Rx Instructions .ROUTE .MEDSUPPLY Qty: 120 RF: 2 Geodon 20 mg Capsule 20 mg PO BID RF: 0 albuterol sulfate 90 mcg/actuation HFA aerosol inhaler 2 inh INHALATION Q4H PRN (Reason: shortness of breath or wheezing) Qty: 18 RF: 0 Discharge Orders: Discharge ED (Routine); Ordered 10/30/20 Ordered By: Carmela Haro Referrals: Eber Garsia DO [Primary Care Provider] - 1-3 days Discharge Diet: Advance as tolerated Discharge Activity: Resume usual activity Patient Instructions: Chest Pain (ED), Opioid Safety Coding Level of Care Code ED Bridge Repairer for Chg Fwd Exam Comprehensive
[2020-10-30 18:34] VITALS: BP 95/56; PULSE 82; RESP 13; O2SAT 95
[2020-10-30 19:39] LABS: Basophils % 0.4 %; Eosinophils # 0.1 10^3/uL (0.0-0.8); Eosinophils % 1.6 %; Hematocrit 31.2 % (37.0-47.0); Hemoglobin 10.4 g/dL (11.5-15.3); Lymphocytes # 1.2 10^3/uL (0.8-4.8); Lymphocytes % 22.1 %; Mean Corpuscular HGB Conc 33.3 g/dL (30.0-36.0); Mean Corpuscular Hemoglobin 28.5 pg (28.0-34.0); Mean Corpuscular Volume 85.5 fL (81-99); Mean Platelet Volume 9.7 fL (7.4-10.4); Monocytes # 0.4 10^3/uL (0.2-0.9); Monocytes % 7.4 %; Neutrophils # 3.78 10^3/uL (1.8-7.7); Neutrophils % 68.3 %; Nucleated Red Blood Cells % 0 %; Platelet Count 109 10^3/cmm (130-400); Red Blood Count 3.65 10^6/uL (4.1-5.3); Red Cell Distribution Width 16.8 % (12.1-15.1); White Blood Count 5.5 10^3/uL (4.0-10.0)
[2020-10-30] MEDS: morphine 4 mg/mL SDV 1 mL IVP (19:47)
[2020-10-30] MEDS: ondansetron 2 mg/ML SDV 2 mL 4 MG IVP (19:47)
[2020-10-30 19:50] VITALS: BP 125/57; PULSE 72; RESP 18; O2SAT 93
[2020-10-30 20:12] LABS: Alanine Aminotransferase 28 U/L (0-33); Albumin Level 3.2 g/dL (3.5-5.2); Alkaline Phosphatase 136 IU/L (35-105); Anion Gap 12.8 (5-19); Aspartate Amino Transferase 53 U/L (0-32); Blood Urea Nitrogen 7 mg/dL (6-20); Calcium 8.6 mg/dL (8.5-10.5); Carbon Dioxide 24 mmol/L (22-29); Chloride 107 mmol/L (98-107); Glucose 102 mg/dL (65-115); Osmolality Calculated 288 mOsm/kg (285-295); Potassium 3.8 mmol/L (3.5-5.1); Sodium 140 mmol/L (136-145); Total Bilirubin 0.5 mg/dL (0.15-1.2); Total Protein 5.2 g/dL (6.6-8.7); Troponin(5th) Baseline 6 ng/L (0-10)
[2020-10-30 20:16] LABS: D Dimer 0.34 ug/mIFEU (0-0.59)
[2020-10-30 20:44] VITALS: BP 113/64; PULSE 62; RESP 18; O2SAT 95
== END 2020-10-30 20:44 | disposition home or self-care (01) ==
PROVIDERS: Emergency Provider Emergency Medicine; PCP Internal Medicine
DX: R07.9 Chest pain, unspecified (principal); I50.9 Heart failure, unspecified; E11.9 Type 2 diabetes mellitus without complications; F17.210 Nicotine dependence, cigarettes, uncomplicated
CPT/HCPCS: 71045; 80053; 84484; 85025; 85378; 93005; 96374; 96375; 99284; J2270; J2405

== ENCOUNTER 2020-11-01 09:46 | Outpatient (CLI) | payer MEDICARE, MEDICAID, SELFPAY ==
[2020-11-01 10:23] LABS: Basophils % 0.4 %; Eosinophils # 0.1 10^3/uL (0.0-0.8); Hematocrit 33.8 % (37.0-47.0); Hemoglobin 11.2 g/dL (11.5-15.3); Lymphocytes # 0.9 10^3/uL (0.8-4.8); Mean Corpuscular HGB Conc 33.1 g/dL (30.0-36.0); Mean Corpuscular Hemoglobin 28.6 pg (28.0-34.0); Mean Corpuscular Volume 86.4 fL (81-99); Mean Platelet Volume 9.8 fL (7.4-10.4); Monocytes # 0.4 10^3/uL (0.2-0.9); Monocytes % 8.4 %; Neutrophils # 3.39 10^3/uL (1.8-7.7); Neutrophils % 70.8 %; Nucleated Red Blood Cells % 0 %; Platelet Count 115 10^3/cmm (130-400); Red Blood Count 3.91 10^6/uL (4.1-5.3); Red Cell Distribution Width 16.8 % (12.1-15.1); White Blood Count 4.8 10^3/uL (4.0-10.0)
[2020-11-01 10:41] LABS: Ferritin 55 ng/mL (15-150); Iron 49 ug/dL (37-145); Total Iron Binding Capacity 287 mcg/dl; Unsaturated Iron Binding 238 ug/dL (112-347)
[2020-11-01 10:57] LABS: Vitamin B12 1318 pg/mL (232-1245)
== END 2020-11-01 09:47 | disposition home or self-care (01) ==
PROVIDERS: PCP Internal Medicine; Visit Provider Internal Medicine Hematology & Oncology
DX: D50.9 Iron deficiency anemia, unspecified (principal); D69.6 Thrombocytopenia, unspecified; Z79.899 Other long term (current) drug therapy
CPT/HCPCS: 36415; 82607; 82728; 83540; 83550; 85025

== ENCOUNTER 2020-11-02 05:53 | Outpatient (CLI) | payer MEDICARE, MEDICAID, SELFPAY ==
--- NOTE | 2020-11-02 13:17 | ONC FU_ITS ---
Dr. Anders follow up note Patient: Kay Calles Unit #: [id number]: 1965 Dicatated By: Tristin Anders M.D.Date of Visit:Nov 02, 2020 Onc Med Follow-up/Prog Note History of Present Illness: Mrs. Kay Calles, 55-year-old female with history of Off and on bruising especially on the arms and legs . As per patient history of low platelet count. On 09/27/2016 her white blood count was 4.2 hemoglobin 11 crit 34.7 platelets 95,000 with a normal differential. Anemia workup including iron studies showed ferritin 78 TIBC 286 B12 794 reticulocyte count 1.85 serum protein electrophoresis normal pattern PT 14.3 INR 1.2 CBC on 11/02/2016 showed white blood count 4.9 hemoglobin 12.8 crit 39.7 platelets 70,000 Bone marrow evaluation done on May 24, 2017 showed megakaryocytes are present in normal number and exhibit limited megakaryodyspoiesis-mononuclear megakaryocytes, FISH for MDS panel was negative, flow cytometric showed no aberrant myeloid or lymphoid population. CT scan of chest ordered by PMD, done on October 29, 2019 showed stable splenomegaly, air-fluid level in the mid and distal esophagus with esophageal thickening. Small amount of unchanged patchy groundglass infiltrates about the right hilum and left lower lobe likely infectious or inflammatory. No mediastinal/hilar lymphadenopathy. As patient has history of off and on bleeding per rectum, she was referred to surgery for evaluation and As per patient she underwent EGD and colonoscopy in July [address] Serra, and she was diagnosed with Belkys-Valenzuela and also peptic ulcer disease and colonoscopy showed polyp which was removed and was benign. Came for follow-up, denies any specific complaint except off-and-on leg cramps and generalized weakness and fatigue but no melena or hematochezia, no nausea or vomiting, no diarrhea or constipation, no hemoptysis or hematemesis, no jaundice, patient has history of oral iron intolerance in the past responded very well to parenteral iron for her iron deficiency anemia. Medications: chlordiazePOXIDE HCl 1 Capsule (of 10 mg) Oral daily, Fluconazole 1 Tablet (of 150 mg) Oral daily, Geodon 1 Capsule (of 20 mg) Oral b.i.d., HumaLOG 20 Units (of 100 Units/mL) Subcutaneous t.i.d., Nitroglycerin Tablet, sublingual Sublingual PRN, Oxybutynin Chloride 1 Tablet (of 5 mg) Oral at bedtime, Terbinafine HCl (1 %) Cream Topical b.i.d., Topiramate 1 Tablet (of 50 mg) Oral at bedtime, traZODone HCl 3 Tablet (of 50 mg) Oral at bedtime, Tresiba FlexTouch 60 Units (of 200 Units/mL) Subcutaneous at bedtime Allergies: Aspirin Adult Low Dose, Cephalosporins, Imitrex, NSAIDs, and Penicillins. Review of Systems: Review of Systems is not available for this patient. Vital Signs: Performed on Nov 02, 2020 09:50 Height - 60.00 in Temperature - 98.3 F (LOW) Pulse - 78 /min Respiration - 18 /min BP - 111/71 mm(hg) O2 Sat - 98 % Pain - 5 Performance Status: 1 - No physically strenuous activity, but ambulatory and able to carry out light or sedentary work (e.g. office work, light house work). (ECOG) Physical Examination: ENMT - No visible mouth sores, no thrush, no jaundice, Respiratory - Lungs are clear to auscultation, Cardiovascular - Regular rate and rhythm of heart, Abdomen - Soft, bowel sounds present, Extremities - No visible edema or rash. Lab/Imaging: Most recent lab results are not available for this patient. Impression: Iron deficiency anemia diagnosed on February 04, 2020 per PMD note, at that time her hemoglobin was 9.1 g hematocrit 28.8, MCV 77.5 platelets 167,000 white blood count 5.1 and ferritin 10, iron saturation 5%, iron 20, TIBC 442, as per patient she was offered oral iron and she did not take it because history of GI intolerance but in the past she has taken parenteral iron without any problem. Thrombocytopenia questionable etiology could be due to increased peripheral destruction like low-grade ITP or splenic sequestration or medication related or decreased production due to primary bone marrow disorder /suppression due to medication or subacute infection.Or platelet clumping due to EDTA Splenomegaly seen on CT scan of chest done on October 29, 2019 Recurrent , off and on, blood in her stool for few weeks Bone marrow done on 05/24/2017 showed megakaryocytes are present in normal number and exhibit limited megakaryodyspoiesis-mononucleated megakaryocytes. red cell precursors mature with -occasional binucleate precursors. FISH MDS panel showed No MDS specific abnormalities were detected and flow cytometry showed no aberrant myeloid or lymphoid population detected Diabetes mellitus Plan: Discussed with patient regarding her labs white blood count 4.8 hemoglobin 11.2 compared to 12.1 g earlier in March 2020, hematocrit 33.8 platelets 115,000 compared to 108,000 previously iron studies shows iron saturation 17% which is low, ferritin 55, iron 49 TIBC 287, B12 1318 Clinically, patient is doing reasonably well, her follow-up CBC shows mild/moderate anemia which is symptomatic, generalized weakness and fatigue, leg cramps most likely due to iron deficiency, will consider Injectafer 750 mg IV x1 and then she will return to clinic in 1 month with CBC and iron studies Mild thrombocytopenia, due to splenic sequestration, stable, will continue to monitor Signed By: Tristin Anders M.D. <<Signature on File>>
== END 2020-11-02 05:54 | disposition home or self-care (01) ==
LOC: ONCMED 06:00
PROVIDERS: PCP Internal Medicine; Visit Provider Internal Medicine Hematology & Oncology
DX: D50.9 Iron deficiency anemia, unspecified (principal); D69.6 Thrombocytopenia, unspecified; E11.9 Type 2 diabetes mellitus without complications; Z79.899 Other long term (current) drug therapy
CPT/HCPCS: 99214

== ENCOUNTER 2020-11-04 06:33 | Outpatient (CLI) | payer MEDICARE, MEDICAID, SELFPAY ==
[2020-11-04] MEDS: sodium chloride 0.9% (100 ml) 100 ML 75 ML (09:14)
[2020-11-04] MEDS: ferric carboxy (IVPB) 750 MG in sodium chloride 0.9% (100 ml) 100 ML 460 MG IV (09:14)
== END 2020-11-04 06:34 | disposition home or self-care (01) ==
LOC: ONCMED 06:35
PROVIDERS: PCP Internal Medicine; Visit Provider Internal Medicine Hematology & Oncology
DX: D50.9 Iron deficiency anemia, unspecified (principal)
CPT/HCPCS: 96365; J1439

== ENCOUNTER 2020-12-03 09:54 | Outpatient (CLI) | payer MEDICARE, MEDICAID, SELFPAY ==
[2020-12-03 11:03] LABS: Basophils % 0.7 %; Eosinophils # 0.1 10^3/uL (0.0-0.8); Eosinophils % 1.7 %; Hematocrit 38.7 % (37.0-47.0); Lymphocytes # 1.3 10^3/uL (0.8-4.8); Lymphocytes % 21.3 %; Mean Corpuscular HGB Conc 33.6 g/dL (30.0-36.0); Mean Corpuscular Hemoglobin 30.1 pg (28.0-34.0); Mean Corpuscular Volume 89.6 fl (81-99); Mean Platelet Volume 9.9 fL (7.4-10.4); Monocytes # 0.4 10^3/uL (0.2-0.9); Monocytes % 6.5 %; Neutrophils # 4.15 10^3/uL (1.8-7.7); Neutrophils % 69.6 %; Nucleated Red Blood Cells % 0 %; Platelet Count 128 10^3/cmm (130-400); Red Blood Count 4.32 10^6/uL (4.1-5.3); Red Cell Distribution Width 15.7 % (12.1-15.1)
[2020-12-03 11:32] LABS: Ferritin 263 ng/mL (15-150); Iron 102 ug/dL (37-145); Percent Saturation 37.3 % (20-50); Total Iron Binding Capacity 273 mcg/dl; Unsaturated Iron Binding 171 ug/dL (112-347)
[2020-12-03 11:48] LABS: Vitamin B12 910 pg/mL (232-1245)
--- NOTE | 2020-12-03 12:09 | ONC FU_ITS ---
Dr. Anders follow up note Patient: Kay Calles Unit #: [id number]: 1965 Dicatated By: Tristin Anders M.D.Date of Visit:Dec 03, 2020 Onc Med Follow-up/Prog Note History of Present Illness: Mrs. Kay Calles, 55-year-old female with history of Off and on bruising especially on the arms and legs . As per patient history of low platelet count. On 09/27/2016 her white blood count was 4.2 hemoglobin 11 crit 34.7 platelets 95,000 with a normal differential. Anemia workup including iron studies showed ferritin 78 TIBC 286 B12 794 reticulocyte count 1.85 serum protein electrophoresis normal pattern PT 14.3 INR 1.2 CBC on 11/02/2016 showed white blood count 4.9 hemoglobin 12.8 crit 39.7 platelets 70,000 Bone marrow evaluation done on May 24, 2017 showed megakaryocytes are present in normal number and exhibit limited megakaryodyspoiesis-mononuclear megakaryocytes, FISH for MDS panel was negative, flow cytometric showed no aberrant myeloid or lymphoid population. CT scan of chest ordered by PMD, done on October 29, 2019 showed stable splenomegaly, air-fluid level in the mid and distal esophagus with esophageal thickening. Small amount of unchanged patchy groundglass infiltrates about the right hilum and left lower lobe likely infectious or inflammatory. No mediastinal/hilar lymphadenopathy. As patient has history of off and on bleeding per rectum, she was referred to surgery for evaluation and As per patient she underwent EGD and colonoscopy in July [address] Serra, and she was diagnosed with Belkys-Valenzuela and also peptic ulcer disease and colonoscopy showed polyp which was removed and was benign. Came for follow-up, denies any specific complaints, no fever chills, no nausea or vomiting, no diarrhea constipation, still having Off and on lower extremity cramps but somewhat better, now being evaluated by PMD, patient has history of pinching disc and lower back problem in the past. Denies any melena or hematochezia denies any hemoptysis or hematemesis denies any jaundice tolerated dose of Injectafer well and now more energetic Medications: chlordiazePOXIDE HCl 1 Capsule (of 10 mg) Oral daily, Fluconazole 1 Tablet (of 150 mg) Oral daily, Geodon 1 Capsule (of 20 mg) Oral b.i.d., HumaLOG 20 Units (of 100 Units/mL) Subcutaneous t.i.d., Magnesium 1 Tablet (of 100 mg) Oral four times a day, Nitroglycerin Tablet, sublingual Sublingual PRN, Oxybutynin Chloride 1 Tablet (of 5 mg) Oral at bedtime, Terbinafine HCl (1 %) Cream Topical b.i.d., Topiramate 1 Tablet (of 50 mg) Oral at bedtime, traZODone HCl 3 Tablet (of 50 mg) Oral at bedtime, Tresiba FlexTouch 60 Units (of 200 Units/mL) Subcutaneous at bedtime Allergies: Aspirin Adult Low Dose, Cephalosporins, Imitrex, NSAIDs, and Penicillins. Review of Systems: Review of Systems is not available for this patient. Vital Signs: Performed on Dec 03, 2020 11:48 Height - 60.00 in Weight - 166.4 lbs (LOW) BSA - 1.73 sq.m BMI - 32.50 (HIGH) Temperature - 98.4 F Pulse - 86 /min Respiration - 18 /min BP - 108/71 mm(hg) O2 Sat - 97 % Pain - 6 Fatigue - 8 Performance Status: 0 - Fully active, able to carry on all predisease activities without restrictions. (ECOG) Physical Examination: ENMT - No mouth sores, no thrush, no jaundice, Respiratory - Lungs are clear to auscultation, Cardiovascular - Regular rate and rhythm of heart, Abdomen - Soft, bowel sounds present, Extremities - No visible edema. Lab/Imaging: Most recent lab results are not available for this patient. Impression: Iron deficiency anemia diagnosed on February 04, 2020 per PMD note, at that time her hemoglobin was 9.1 g hematocrit 28.8, MCV 77.5 platelets 167,000 white blood count 5.1 and ferritin 10, iron saturation 5%, iron 20, TIBC 442, as per patient she was offered oral iron and she did not take it because history of GI intolerance but in the past she has taken parenteral iron without any problem. Thrombocytopenia questionable etiology could be due to increased peripheral destruction like low-grade ITP or splenic sequestration or medication related or decreased production due to primary bone marrow disorder /suppression due to medication or subacute infection.Or platelet clumping due to EDTA Splenomegaly seen on CT scan of chest done on October 29, 2019 Recurrent , off and on, blood in her stool for few weeks Bone marrow done on 05/24/2017 showed megakaryocytes are present in normal number and exhibit limited megakaryodyspoiesis-mononucleated megakaryocytes. red cell precursors mature with -occasional binucleate precursors. FISH MDS panel showed No MDS specific abnormalities were detected and flow cytometry showed no aberrant myeloid or lymphoid population detected Diabetes mellitus Plan: Discussed with patient regarding her labs white blood count 6 hemoglobin 13 g compared to 11.2 g prior to Injectafer infusion hematocrit 38.7 platelets 128,000 compared to 115 earlier iron studies shows iron saturation 37.3% ferritin 263 compared to 55 prior to Injectafer infusion ,iron 102, TIBC 273 Clinically, patient is doing well with no new signs symptom, tolerated dose of Injectafer well her follow-up lab work-up shows normalization of iron deficiency anemia as well as improvement in her iron stores, at this point we will continue to monitor she will return to clinic in 3 months with CBC and iron studies, patient was advised to follow-up with PMD regarding her lower back problems as well as Off and on lower extremity cramps/discomfort Signed By: Tristin Anders M.D. <<Signature on File>>
--- NOTE | 2021-01-21 15:00 | PC.RESP ---
SMOKING CESSATION INFORMATION SENT TO PATIENT.
--- NOTE | 2021-01-21 15:01 | PC.RESP ---
SMOKING CESSATION INFORMATION SENT TO PATIENT.
== END 2020-12-03 09:55 | disposition home or self-care (01) ==
LOC: ONCMED 09:58
PROVIDERS: PCP Internal Medicine; Visit Provider Internal Medicine Hematology & Oncology
DX: D50.9 Iron deficiency anemia, unspecified (principal); D69.6 Thrombocytopenia, unspecified; E11.9 Type 2 diabetes mellitus without complications; Z79.899 Other long term (current) drug therapy
CPT/HCPCS: 36415; 82607; 82728; 83540; 83550; 85025; 99214

== ENCOUNTER 2021-01-16 22:02 | Inpatient (IN) | payer MEDICARE, MEDICAID, SELFPAY ==
[2021-01-16 22:08] VITALS: BP 148/99; PULSE 101; RESP 18; TEMP 36.6; O2SAT 98; BMI 34.3
--- NOTE | 2021-01-16 22:17 | ED_ITS ---
Documented by User: Carmela Haro MD 01/16/21 22:22 HPI - Psych General: Chief Complaint: Psychiatric Symptoms Stated Complaint: si/ intoxicated Time Seen by Provider: 01/16/21 22:05 Source: patient and EMS Mode of arrival: EMS Limitations: no limitations History of Present Illness: HPI Narrative: 55-year-old female has a history of alcoholism who states she is severely depressed. States her son killed himself 1 year ago and she still blames herself and she is having increasing suicidal thoughts. She states she been having thoughts of cutting her wrists and that is her plan. Patient has been drinking today. She denies any worsening improving factors. Patient has been admitted previously. Associated symptoms: Reports suicidal ideation Review of Systems Const: Denies: fever(s), chills, body aches or change in appetite Eyes: Denies: blurry vision or eye discomfort ENMT: Denies: throat pain or dental pain Card: Denies: chest pain Resp: Denies: dyspnea GI: Denies: abdominal pain, nausea, vomiting or diarrhea : Denies: dysuria Musc: Denies: neck pain or back pain Skin/Breast: Denies: rash Neuro: Denies: headache(s) Psych: Reports: suicidal ideation Girma/Lymph: Denies: easy bruising All/Imm: Denies: urticaria PFSH ED PFSH: Medical History Anxiety Bilateral primary osteoarthritis of hip Chronic back pain Congestive heart failure Diabetes mellitus H/O Belkys-Valenzuela syndrome (~07/2019) EGD at [facility]. EGD 10/26 negative. MONTANO (nonalcoholic steatohepatitis) Psychiatric care Suicidal behavior Surgical History H/O cervical spine surgery H/O colonoscopy History of esophagogastroduodenoscopy Social History Smoking and tobacco status: current every day smoker cigarettes Packs smoked per day: 0.5 Alcohol intake: never History of recent travel: No Current gender identity: Female Physical Exam Const: COMMON NORMALS: no acute distress, patient oriented x3 and healthy appearing HENMT: COMMON NORMALS: normocephalic and atraumatic HEAD & SCALP: normocephalic and atraumatic Eye: COMMON NORMALS: Equal, round and reactive pupils present and EOMs intact bilaterally PUPIL: Yes Equal, round and reactive pupils present Neck/C-Spine: COMMON NORMALS: full ROM and supple Chest: COMMONS NORMALS: normal inspection of the chest and normal palpation of entire chest wall Resp: COMMON NORMALS: normal respiratory effort, No retractions, No use of accessory muscles and clear to auscultation bilaterally AUSCULTATION: clear to auscultation bilaterally Cardio: COMMON NORMALS: regular rate, regular rhythm and No murmurs present (Cardio) RATE: regular rate RHYTHM: regular rhythm GI: COMMON NORMALS: Normal to inspection, nondistended, normoactive bowel sounds present, Soft to palpation, non-tender and no masses PALPATION: Yes Soft to palpation Extremity: COMMON NORMALS: normal to inspection and full ROM Neuro: COMMON NORMALS: patient oriented x3, moves all extremities and no focal motor deficits Psych: COMMON NORMALS: mental status grossly normal, Normal thought process p resent and cooperative THOUGHT PROCESS: Normal thought process present THOUGHT CONTENT: Yes Suicidality present Skin: COMMON NORMALS: no rashes or lesions noted and no wounds GENERAL SKIN EXAM: no rashes or lesions noted Course Vital Signs: Vital signs: Vital Signs Temperature 98.3 F 01/17/21 07:00 Pulse Rate 76 01/17/21 07:00 Respiratory Rate 17 01/17/21 07:00 Blood Pressure 139/82 01/17/21 07:00 Pulse Oximetry 97 01/17/21 07:00 MDM - Psych Lab Data: Labs: Lab Results 01/16/21 01/16/21 01/16/21 22:28 22:28 22:29 WBC 9.0 10^3/uL 10^3/ uL (4.0-10.0) RBC 4.28 10^6/uL 10^6 /uL (4.1-5.3) Hgb 13.2 g/dL g/dL (11.5-15.3) Hct 37.8 % % (37.0-47.0) MCV 88.3 fl fl (81-99) MCH 30.8 pg pg (28.0-34.0) MCHC 34.9 g/dL g/dL (30.0-36.0) RDW 14.1 % % (12.1-15.1) Plt Count 127 10^3/cmm L 10 ^3/cmm (130-400) MPV 9.3 fL fL (7.4-10.4) Neut % (Auto) 66.5 % % Lymph % (Auto) 23.1 % % Louisa % (Auto) 7.6 % % Eos % (Auto) 2.1 % % Baso % (Auto) 0.4 % % Neut # (Auto) 5.97 10^3/uL 10^3 /uL (1.8-7.7) Lymph # (Auto) 2.1 10^3/uL 10^3/ uL (0.8-4.8) Louisa # (Auto) 0.7 10^3/uL 10^3/ uL (0.2-0.9) Eos # (Auto) 0.2 10^3/uL 10^3/ uL (0.0-0.8) Baso # (Auto) 0.0 10^3/uL 10^3/ uL (0.0-0.1) Nucleated RBC % (a uto) 0 % % Nucleated RBCs # 0.0 /100WBC /100W BC Sodium Potassium Chloride Carbon Dioxide Anion Gap BUN Creatinine GFR Calculation Glucose Calculated Osmolal ity Calcium Total Bilirubin AST ALT Alkaline Phosphata se Total Protein Albumin Globulin TSH Urine Color Straw (Yellow) Urine Appearance Clear (CLEAR) Urine pH 6 (5-7) Ur Specific Gravit y 1.005 (1.005-1.030) Urine Protein Neg (Negative) Urine Glucose (UA) Norm (Normal) Urine Ketones Negative (Negative) Urine Blood Neg (Negative) Urine Nitrate Negative (Negative) Urine Bilirubin Neg (Negative) Urine Urobilinogen Norm mg/dL mg/dL (Negative) Ur Leukocyte Colleen ase Negative (Negative) Salicylates Urine Opiates Scre en Negative ng/mL ng /mL (Negative) Acetaminophen Ur Barbiturates Sc reen Negative ng/mL ng /mL (Negative) Ur Phencyclidine S crn Negative ng/mL ng /mL (Negative) Ur Amphetamines Sc reen Negative ng/mL ng /mL (Negative) U Benzodiazepines Scrn Negative ng/mL ng /mL (Negative) Urine Cocaine Scre en Negative ng/mL ng /mL (Negative) U Marijuana (THC) Screen Positive ng/mL H ng/mL (Negative) Ethyl Alcohol SARS-CoV-2 Ag (Rap id) 01/16/21 01/17/21 01/17/21 22:29 01:20 04:35 WBC RBC Hgb Hct MCV MCH MCHC RDW Plt Count MPV Neut % (Auto) Lymph % (Auto) Louisa % (Auto) Eos % (Auto) Baso % (Auto) Neut # (Auto) Lymph # (Auto) Louisa # (Auto) Eos # (Auto) Baso # (Auto) Nucleated RBC % (a uto) Nucleated RBCs # Sodium 145 mmol/L mmol/L (136-145) Potassium 3.7 mmol/L mmol/L (3.5-5.1) Chloride 111 mmol/L H mmol /L (98-107) Carbon Dioxide 23 mmol/L mmol/L (22-29) Anion Gap 14.7 (5-19) BUN 6 mg/dL mg/dL (6-20) Creatinine 0.4 mg/dL L mg/dL (0.5-0.9) GFR Calculation 167.0 mL/min H mL /min (90-130) Glucose 130 mg/dL H mg/dL (65-115) Calculated Osmolal ity 299 mOsm/kg H mOs m/kg (285-295) Calcium 9.4 mg/dL mg/dL (8.5-10.5) Total Bilirubin 0.6 mg/dL mg/dL (0.15-1.2) AST 75 U/L H U/L (0-32) ALT 32 U/L U/L (0-33) Alkaline Phosphata se 193 IU/L H IU/L (35-105) Total Protein 6.5 g/dL L g/dL (6.6-8.7) Albumin 3.7 g/dL g/dL (3.5-5.2) Globulin 2.8 g/dL g/dL (1.3-4.6) TSH Urine Color Urine Appearance Urine pH Ur Specific Gravit y Urine Protein Urine Glucose (UA) Urine Ketones Urine Blood Urine Nitrate Urine Bilirubin Urine Urobilinogen Ur Leukocyte Colleen ase Salicylates < 0.3 mg/dL L mg/ dL (3-10) Urine Opiates Scre en Acetaminophen < 5.0 ug/mL L ug/ mL (10-30) Ur Barbiturates Sc reen Ur Phencyclidine S crn Ur Amphetamines Sc reen U Benzodiazepines Scrn Urine Cocaine Scre en U Marijuana (THC) Screen Ethyl Alcohol 267 mg/dL H mg/dL 148 mg/dL H mg/dL (0-10) (0-10) SARS-CoV-2 Ag (Rap id) Negative (Negative) 01/17/21 04:35 WBC RBC Hgb Hct MCV MCH MCHC RDW Plt Count MPV Neut % (Auto) Lymph % (Auto) Louisa % (Auto) Eos % (Auto) Baso % (Auto) Neut # (Auto) Lymph # (Auto) Louisa # (Auto) Eos # (Auto) Baso # (Auto) Nucleated RBC % (a uto) Nucleated RBCs # Sodium Potassium Chloride Carbon Dioxide Anion Gap BUN Creatinine GFR Calculation Glucose Calculated Osmolal ity Calcium Total Bilirubin AST ALT Alkaline Phosphata se Total Protein Albumin Globulin TSH 0.87 uIU/mL uIU/m L (0.27-4.20) Urine Color Urine Appearance Urine pH Ur Specific Gravit y Urine Protein Urine Glucose (UA) Urine Ketones Urine Blood Urine Nitrate Urine Bilirubin Urine Urobilinogen Ur Leukocyte Colleen ase Salicylates Urine Opiates Scre en Acetaminophen Ur Barbiturates Sc reen Ur Phencyclidine S crn Ur Amphetamines Sc reen U Benzodiazepines Scrn Urine Cocaine Scre en U Marijuana (THC) Screen Ethyl Alcohol SARS-CoV-2 Ag (Rap id) Discharge Plan Discharge Prescriptions: No Action nitroglycerin [Nitrostat] 0.4 mg tablet, sublingual 0.4 mg SUBLINGUAL PRN PRN (Reason: Chest Pain) RF: 0 trazodone 150 mg tablet 150 mg PO BEDTIME PRN (Reason: Sleep) 30 Days Qty: 30 RF: 3 (DME) ReliOn Prime Test Strips Strip See Rx Instructions .ROUTE .MEDSUPPLY Qty: 120 RF: 2 Geodon 20 mg Capsule 20 mg PO BID RF: 0 hydrocodone-acetaminophen 5-325 mg tablet 1 tab PO Q6H PRN (Reason: pain) Qty: 10 RF: 0 Naprosyn 500 mg tablet 500 mg PO BID PRN (Reason: pain) Qty: 20 RF: 0 albuterol sulfate 90 mcg/actuation HFA aerosol inhaler 2 inh INHALATION Q4H PRN (Reason: shortness of breath or wheezing) Qty: 18 RF: 0 Sign Out Sign Out Data: Patient Sign Out occurred on 01/17/21 at 07:02. Patient's care was discussed, and care was transferred from to Gee Huertas DO. Coding Level of Care Code ED Family Practice Physician for Chg Fwd Exam Comprehensive Documented by User: Pablito Pitts DO 01/17/21 06:13 HPI - Psych General: Chief Complaint: Psychiatric Symptoms Stated Complaint: si/ intoxicated Time Seen by Provider: 01/16/21 22:05 PFS ED PFSH: Medical History Anxiety Bilateral primary osteoarthritis of hip Chronic back pain Congestive heart failure Diabetes mellitus H/O Belkys-Valenzuela syndrome (~07/2019) EGD at [facility]. EGD 10/26 negative. MONTANO (nonalcoholic steatohepatitis) Psychiatric care Suicidal behavior Surgical History H/O cervical spine surgery H/O colonoscopy History of esophagogastroduodenoscopy Social History Smoking and tobacco status: current every day smoker cigarettes Packs smoked per day: 0.5 Alcohol intake: never History of recent travel: No Current gender identity: Female Course Vital Signs: Vital signs: Vital Signs Temperature 98.3 F 01/17/21 07:00 Pulse Rate 76 01/17/21 07:00 Respiratory Rate 17 01/17/21 07:00 Blood Pressure 139/82 01/17/21 07:00 Pulse Oximetry 97 01/17/21 07:00 MDM - Psych MDM Narrative: Medical decision making narrative: 55-year-old female checked out to me by Dr. Haro at shift change. This lady endorsed suicidal ideation with a plan to slit her wrists. She was intoxicated. Her alcohol level is now 148. We have no neuropsychiatry beds available at this facility currently. We are attempting to find her a bed at a different facility. She remains medically stable. She has been placed under 96-hour hold by the previous physician. She will be checked out to Dr. Huertas at shift change pending acceptance at a different facility versus available bed here. Lab Data: Labs: Lab Results 01/16/21 01/16/21 01/16/21 22:28 22:28 22:29 WBC 9.0 10^3/uL 10^3/ uL (4.0-10.0) RBC 4.28 10^6/uL 10^6 /uL (4.1-5.3) Hgb 13.2 g/dL g/dL (11.5-15.3) Hct 37.8 % % (37.0-47.0) MCV 88.3 fl fl (81-99) MCH 30.8 pg pg (28.0-34.0) MCHC 34.9 g/dL g/dL (30.0-36.0) RDW 14.1 % % (12.1-15.1) Plt Count 127 10^3/cmm L 10 ^3/cmm (130-400) MPV 9.3 fL fL (7.4-10.4) Neut % (Auto) 66.5 % % Lymph % (Auto) 23.1 % % Louisa % (Auto) 7.6 % % Eos % (Auto) 2.1 % % Baso % (Auto) 0.4 % % Neut # (Auto) 5.97 10^3/uL 10^3 /uL (1.8-7.7) Lymph # (Auto) 2.1 10^3/uL 10^3/ uL (0.8-4.8) Louisa # (Auto) 0.7 10^3/uL 10^3/ uL (0.2-0.9) Eos # (Auto) 0.2 10^3/uL 10^3/ uL (0.0-0.8) Baso # (Auto) 0.0 10^3/uL 10^3/ uL (0.0-0.1) Nucleated RBC % (a uto) 0 % % Nucleated RBCs # 0.0 /100WBC /100W BC Sodium Potassium Chloride Carbon Dioxide Anion Gap BUN Creatinine GFR Calculation Glucose Calculated Osmolal ity Calcium Total Bilirubin AST ALT Alkaline Phosphata se Total Protein Albumin Globulin TSH Urine Color Straw (Yellow) Urine Appearance Clear (CLEAR) Urine pH 6 (5-7) Ur Specific Gravit y 1.005 (1.005-1.030) Urine Protein Neg (Negative) Urine Glucose (UA) Norm (Normal) Urine Ketones Negative (Negative) Urine Blood Neg (Negative) Urine Nitrate Negative (Negative) Urine Bilirubin Neg (Negative) Urine Urobilinogen Norm mg/dL mg/dL (Negative) Ur Leukocyte Colleen ase Negative (Negative) Salicylates Urine Opiates Scre en Negative ng/mL ng /mL (Negative) Acetaminophen Ur Barbiturates Sc reen Negative ng/mL ng /mL (Negative) Ur Phencyclidine S crn Negative ng/mL ng /mL (Negative) Ur Amphetamines Sc reen Negative ng/mL ng /mL (Negative) U Benzodiazepines Scrn Negative ng/mL ng /mL (Negative) Urine Cocaine Scre en Negative ng/mL ng /mL (Negative) U Marijuana (THC) Screen Positive ng/mL H ng/mL (Negative) Ethyl Alcohol SARS-CoV-2 Ag (Rap id) 01/16/21 01/17/21 01/17/21 22:29 01:20 04:35 WBC RBC Hgb Hct MCV MCH MCHC RDW Plt Count MPV Neut % (Auto) Lymph % (Auto) Louisa % (Auto) Eos % (Auto) Baso % (Auto) Neut # (Auto) Lymph # (Auto) Louisa # (Auto) Eos # (Auto) Baso # (Auto) Nucleated RBC % (a uto) Nucleated RBCs # Sodium 145 mmol/L mmol/L (136-145) Potassium 3.7 mmol/L mmol/L (3.5-5.1) Chloride 111 mmol/L H mmol /L (98-107) Carbon Dioxide 23 mmol/L mmol/L (22-29) Anion Gap 14.7 (5-19) BUN 6 mg/dL mg/dL (6-20) Creatinine 0.4 mg/dL L mg/dL (0.5-0.9) GFR Calculation 167.0 mL/min H mL /min (90-130) Glucose 130 mg/dL H mg/dL (65-115) Calculated Osmolal ity 299 mOsm/kg H mOs m/kg (285-295) Calcium 9.4 mg/dL mg/dL (8.5-10.5) Total Bilirubin 0.6 mg/dL mg/dL (0.15-1.2) AST 75 U/L H U/L (0-32) ALT 32 U/L U/L (0-33) Alkaline Phosphata se 193 IU/L H IU/L (35-105) Total Protein 6.5 g/dL L g/dL (6.6-8.7) Albumin 3.7 g/dL g/dL (3.5-5.2) Globulin 2.8 g/dL g/dL (1.3-4.6) TSH Urine Color Urine Appearance Urine pH Ur Specific Gravit y Urine Protein Urine Glucose (UA) Urine Ketones Urine Blood Urine Nitrate Urine Bilirubin Urine Urobilinogen Ur Leukocyte Colleen ase Salicylates < 0.3 mg/dL L mg/ dL (3-10) Urine Opiates Scre en Acetaminophen < 5.0 ug/mL L ug/ mL (10-30) Ur Barbiturates Sc reen Ur Phencyclidine S crn Ur Amphetamines Sc reen U Benzodiazepines Scrn Urine Cocaine Scre en U Marijuana (THC) Screen Ethyl Alcohol 267 mg/dL H mg/dL 148 mg/dL H mg/dL (0-10) (0-10) SARS-CoV-2 Ag (Rap id) Negative (Negative) 01/17/21 04:35 WBC RBC Hgb Hct MCV MCH MCHC RDW Plt Count MPV Neut % (Auto) Lymph % (Auto) Louisa % (Auto) Eos % (Auto) Baso % (Auto) Neut # (Auto) Lymph # (Auto) Louisa # (Auto) Eos # (Auto) Baso # (Auto) Nucleated RBC % (a uto) Nucleated RBCs # Sodium Potassium Chloride Carbon Dioxide Anion Gap BUN Creatinine GFR Calculation Glucose Calculated Osmolal ity Calcium Total Bilirubin AST ALT Alkaline Phosphata se Total Protein Albumin Globulin TSH 0.87 uIU/mL uIU/m L (0.27-4.20) Urine Color Urine Appearance Urine pH Ur Specific Gravit y Urine Protein Urine Glucose (UA) Urine Ketones Urine Blood Urine Nitrate Urine Bilirubin Urine Urobilinogen Ur Leukocyte Colleen ase Salicylates Urine Opiates Scre en Acetaminophen Ur Barbiturates Sc reen Ur Phencyclidine S crn Ur Amphetamines Sc reen U Benzodiazepines Scrn Urine Cocaine Scre en U Marijuana (THC) Screen Ethyl Alcohol SARS-CoV-2 Ag (Rap id) Discharge Plan Discharge Prescriptions: No Action nitroglycerin [Nitrostat] 0.4 mg tablet, sublingual 0.4 mg SUBLINGUAL PRN PRN (Reason: Chest Pain) RF: 0 trazodone 150 mg tablet 150 mg PO BEDTIME PRN (Reason: Sleep) 30 Days Qty: 30 RF: 3 (DME) ReliOn Prime Test Strips Strip See Rx Instructions .ROUTE .MEDSUPPLY Qty: 120 RF: 2 Geodon 20 mg Capsule 20 mg PO BID RF: 0 hydrocodone-acetaminophen 5-325 mg tablet 1 tab PO Q6H PRN (Reason: pain) Qty: 10 RF: 0 Naprosyn 500 mg tablet 500 mg PO BID PRN (Reason: pain) Qty: 20 RF: 0 albuterol sulfate 90 mcg/actuation HFA aerosol inhaler 2 inh INHALATION Q4H PRN (Reason: shortness of breath or wheezing) Qty: 18 RF: 0 Sign Out Sign Out Data: Patient Sign Out occurred on 01/17/21 at 07:02. Patient's care was discussed, and care was transferred from to Gee Huertas DO. Coding Level of Care Code ED Family Practice Physician for Chg Fwd Exam Comprehensive Documented by User: Gee Huertas DO 01/17/21 11:46 HPI - Psych General: Chief Complaint: Psychiatric Symptoms Stated Complaint: si/ intoxicated Time Seen by Provider: 01/16/21 22:05 COUNT INCLUDES THE [facility] ED PFSH: Medical History Anxiety Bilateral primary osteoarthritis of hip Chronic back pain Congestive heart failure Diabetes mellitus H/O Belkys-Valenzuela syndrome (~07/2019) EGD at [facility]. EGD 10/26 negative. MONTANO (nonalcoholic steatohepatitis) Psychiatric care Suicidal behavior Surgical History H/O cervical spine surgery H/O colonoscopy History of esophagogastroduodenoscopy Social History Smoking and tobacco status: current every day smoker cigarettes Packs smoked per day: 0.5 Alcohol intake: never History of recent travel: No Current gender identity: Female Course Vital Signs: Vital signs: Vital Signs Temperature 98.3 F 01/17/21 07:00 Pulse Rate 76 01/17/21 07:00 Respiratory Rate 17 01/17/21 07:00 Blood Pressure 139/82 01/17/21 07:00 Pulse Oximetry 97 01/17/21 07:00 MDM - Psych MDM Narrative: Medical decision making narrative: Care assumed a change of shift blood alcohol down to nondetectable. Dr. [place], at [place] has accepted. Patient stable at time of transfer. Lab Data: Labs: Lab Results 01/16/21 01/16/21 01/16/21 22:28 22:28 22:29 WBC 9.0 10^3/uL 10^3/ uL (4.0-10.0) RBC 4.28 10^6/uL 10^6 /uL (4.1-5.3) Hgb 13.2 g/dL g/dL (11.5-15.3) Hct 37.8 % % (37.0-47.0) MCV 88.3 fl fl (81-99) MCH 30.8 pg pg (28.0-34.0) MCHC 34.9 g/dL g/dL (30.0-36.0) RDW 14.1 % % (12.1-15.1) Plt Count 127 10^3/cmm L 10 ^3/cmm (130-400) MPV 9.3 fL fL (7.4-10.4) Neut % (Auto) 66.5 % % Lymph % (Auto) 23.1 % % Louisa % (Auto) 7.6 % % Eos % (Auto) 2.1 % % Baso % (Auto) 0.4 % % Neut # (Auto) 5.97 10^3/uL 10^3 /uL (1.8-7.7) Lymph # (Auto) 2.1 10^3/uL 10^3/ uL (0.8-4.8) Louisa # (Auto) 0.7 10^3/uL 10^3/ uL (0.2-0.9) Eos # (Auto) 0.2 10^3/uL 10^3/ uL (0.0-0.8) Baso # (Auto) 0.0 10^3/uL 10^3/ uL (0.0-0.1) Nucleated RBC % (a uto) 0 % % Nucleated RBCs # 0.0 /100WBC /100W BC Sodium Potassium Chloride Carbon Dioxide Anion Gap BUN Creatinine GFR Calculation Glucose Calculated Osmolal ity Calcium Total Bilirubin AST ALT Alkaline Phosphata se Total Protein Albumin Globulin TSH Urine Color Straw (Yellow) Urine Appearance Clear (CLEAR) Urine pH 6 (5-7) Ur Specific Gravit y 1.005 (1.005-1.030) Urine Protein Neg (Negative) Urine Glucose (UA) Norm (Normal) Urine Ketones Negative (Negative) Urine Blood Neg (Negative) Urine Nitrate Negative (Negative) Urine Bilirubin Neg (Negative) Urine Urobilinogen Norm mg/dL mg/dL (Negative) Ur Leukocyte Colleen ase Negative (Negative) Salicylates Urine Opiates Scre en Negative ng/mL ng /mL (Negative) Acetaminophen Ur Barbiturates Sc reen Negative ng/mL ng /mL (Negative) Ur Phencyclidine S crn Negative ng/mL ng /mL (Negative) Ur Amphetamines Sc reen Negative ng/mL ng /mL (Negative) U Benzodiazepines Scrn Negative ng/mL ng /mL (Negative) Urine Cocaine Scre en Negative ng/mL ng /mL (Negative) U Marijuana (THC) Screen Positive ng/mL H ng/mL (Negative) Ethyl Alcohol SARS-CoV-2 Ag (Rap id) 01/16/21 01/17/21 01/17/21 22:29 01:20 04:35 WBC RBC Hgb Hct MCV MCH MCHC RDW Plt Count MPV Neut % (Auto) Lymph % (Auto) Louisa % (Auto) Eos % (Auto) Baso % (Auto) Neut # (Auto) Lymph # (Auto) Louisa # (Auto) Eos # (Auto) Baso # (Auto) Nucleated RBC % (a uto) Nucleated RBCs # Sodium 145 mmol/L mmol/L (136-145) Potassium 3.7 mmol/L mmol/L (3.5-5.1) Chloride 111 mmol/L H mmol /L (98-107) Carbon Dioxide 23 mmol/L mmol/L (22-29) Anion Gap 14.7 (5-19) BUN 6 mg/dL mg/dL (6-20) Creatinine 0.4 mg/dL L mg/dL (0.5-0.9) GFR Calculation 167.0 mL/min H mL /min (90-130) Glucose 130 mg/dL H mg/dL (65-115) Calculated Osmolal ity 299 mOsm/kg H mOs m/kg (285-295) Calcium 9.4 mg/dL mg/dL (8.5-10.5) Total Bilirubin 0.6 mg/dL mg/dL (0.15-1.2) AST 75 U/L H U/L (0-32) ALT 32 U/L U/L (0-33) Alkaline Phosphata se 193 IU/L H IU/L (35-105) Total Protein 6.5 g/dL L g/dL (6.6-8.7) Albumin 3.7 g/dL g/dL (3.5-5.2) Globulin 2.8 g/dL g/dL (1.3-4.6) TSH Urine Color Urine Appearance Urine pH Ur Specific Gravit y Urine Protein Urine Glucose (UA) Urine Ketones Urine Blood Urine Nitrate Urine Bilirubin Urine Urobilinogen Ur Leukocyte Colleen ase Salicylates < 0.3 mg/dL L mg/ dL (3-10) Urine Opiates Scre en Acetaminophen < 5.0 ug/mL L ug/ mL (10-30) Ur Barbiturates Sc reen Ur Phencyclidine S crn Ur Amphetamines Sc reen U Benzodiazepines Scrn Urine Cocaine Scre en U Marijuana (THC) Screen Ethyl Alcohol 267 mg/dL H mg/dL 148 mg/dL H mg/dL (0-10) (0-10) SARS-CoV-2 Ag (Rap id) Negative (Negative) 01/17/21 04:35 WBC RBC Hgb Hct MCV MCH MCHC RDW Plt Count MPV Neut % (Auto) Lymph % (Auto) Louisa % (Auto) Eos % (Auto) Baso % (Auto) Neut # (Auto) Lymph # (Auto) Louisa # (Auto) Eos # (Auto) Baso # (Auto) Nucleated RBC % (a uto) Nucleated RBCs # Sodium Potassium Chloride Carbon Dioxide Anion Gap BUN Creatinine GFR Calculation Glucose Calculated Osmolal ity Calcium Total Bilirubin AST ALT Alkaline Phosphata se Total Protein Albumin Globulin TSH 0.87 uIU/mL uIU/m L (0.27-4.20) Urine Color Urine Appearance Urine pH Ur Specific Gravit y Urine Protein Urine Glucose (UA) Urine Ketones Urine Blood Urine Nitrate Urine Bilirubin Urine Urobilinogen Ur Leukocyte Colleen ase Salicylates Urine Opiates Scre en Acetaminophen Ur Barbiturates Sc reen Ur Phencyclidine S crn Ur Amphetamines Sc reen U Benzodiazepines Scrn Urine Cocaine Scre en U Marijuana (THC) Screen Ethyl Alcohol SARS-CoV-2 Ag (Rap id) Discharge Plan Discharge Prescriptions: No Action nitroglycerin [Nitrostat] 0.4 mg tablet, sublingual 0.4 mg SUBLINGUAL PRN PRN (Reason: Chest Pain) RF: 0 trazodone 150 mg tablet 150 mg PO BEDTIME PRN (Reason: Sleep) 30 Days Qty: 30 RF: 3 (DME) ReliOn Prime Test Strips Strip See Rx Instructions .ROUTE .MEDSUPPLY Qty: 120 RF: 2 Geodon 20 mg Capsule 20 mg PO BID RF: 0 hydrocodone-acetaminophen 5-325 mg tablet 1 tab PO Q6H PRN (Reason: pain) Qty: 10 RF: 0 Naprosyn 500 mg tablet 500 mg PO BID PRN (Reason: pain) Qty: 20 RF: 0 albuterol sulfate 90 mcg/actuation HFA aerosol inhaler 2 inh INHALATION Q4H PRN (Reason: shortness of breath or wheezing) Qty: 18 RF: 0 Sign Out Sign Out Data: Patient Sign Out occurred on 01/17/21 at 07:02. Patient's care was discussed, and care was transferred from to Gee Huertas DO. Coding Level of Care Code ED Family Practice Physician for Rober Fwd Exam Comprehensive
[2021-01-16 22:38] LABS: Basophils % 0.4 %; Eosinophils # 0.2 10^3/uL (0.0-0.8); Eosinophils % 2.1 %; Hematocrit 37.8 % (37.0-47.0); Hemoglobin 13.2 g/dL (11.5-15.3); Lymphocytes # 2.1 10^3/uL (0.8-4.8); Lymphocytes % 23.1 %; Mean Corpuscular HGB Conc 34.9 g/dL (30.0-36.0); Mean Corpuscular Hemoglobin 30.8 pg (28.0-34.0); Mean Corpuscular Volume 88.3 fl (81-99); Mean Platelet Volume 9.3 fL (7.4-10.4); Monocytes # 0.7 10^3/uL (0.2-0.9); Monocytes % 7.6 %; Neutrophils # 5.97 10^3/uL (1.8-7.7); Neutrophils % 66.5 %; Nucleated Red Blood Cells % 0 %; Platelet Count 127 10^3/cmm (130-400); Red Blood Count 4.28 10^6/uL (4.1-5.3); Red Cell Distribution Width 14.1 % (12.1-15.1)
[2021-01-16] MEDS: ziprasidone 20 mg/mL SDV IM (22:45)
[2021-01-16 23:03] LABS: Alanine Aminotransferase 32 U/L (0-33); Albumin Level 3.7 g/dL (3.5-5.2); Alcohol Level 267 mg/dL (0-10); Alkaline Phosphatase 193 IU/L (35-105); Anion Gap 14.7 (5-19); Aspartate Amino Transferase 75 U/L (0-32); Blood Urea Nitrogen 6 mg/dL (6-20); Calcium 9.4 mg/dL (8.5-10.5); Carbon Dioxide 23 mmol/L (22-29); Chloride 111 mmol/L (98-107); Globulin 2.8 g/dL (1.3-4.6); Glucose 130 mg/dL (65-115); Osmolality Calculated 299 mOsm/kg (285-295); Potassium 3.7 mmol/L (3.5-5.1); Sodium 145 mmol/L (136-145); Total Bilirubin 0.6 mg/dL (0.15-1.2); Total Protein 6.5 g/dL (6.6-8.7)
[2021-01-16 23:04] LABS: Acetaminophen < 5.0 ug/mL (10-30); Salicylate < 0.3 mg/dL (3-10)
[2021-01-16 23:24] VITALS: BP 149/88; PULSE 88; RESP 14; O2SAT 96
[2021-01-16] MEDS: LORazepam 2 mg Tablet PO (23:33)
[2021-01-16] MEDS: water for injection-sterile 10 ML 1.2 ML (23:49)
[2021-01-17 00:02] LABS: Amphetamines Screen Urine Negative (Negative); Barbiturates Screen Urine Negative (Negative); Benzodiazepines Screen Urine Negative (Negative); Cocaine Screen Urine Negative (Negative); Opiate Screen Urine Negative (Negative); PCP Screen Urine Negative (Negative); THC Screen Urine Positive (Negative)
--- NOTE | 2021-01-17 01:17 | ECG_ITS ---
[facility] Test Date: 2021-01-17 Pat Name: Kay Calles Department: Room: Gender: Female Slasher Tender: : 1965 Requested By: Pablito Owens Order Number: [id number] Parker MD: Joel Garza M.D. Measurements Intervals Gleason Rate: 87 P: 61 HI: 171 QRS: 49 QRSD: 85 T: 57 QT: 381 QTc: 461 Interpretive Statements SINUS RHYTHM Compared to ECG 10/30/2020 18:16:23 No significant changes Electronically Signed On 01-17-2021 14:24:36 CDT by Joel Garza M.D. [id number]
[2021-01-17 01:27] LABS: Add Urine Microscopic? NO; Charge for UA Resulting for Rev
[2021-01-17 01:30] LABS: Bilirubin Urine Neg (Negative); Blood Urine Neg (Negative); Glucose Urine UA Norm (Normal); Ketones Urine Negative (Negative); Leukocyte Esterase Urine Negative (Negative); Nitrate Urine Negative (Negative); Protein Urine Neg (Negative); Specific Gravity, Urine 1.005 (1.005-1.030); Urine Appearance Clear (CLEAR); Urine Color Straw (Yellow); Urobilinogen Urine Norm (Negative); pH Urine 6 (5-7)
[2021-01-17 01:45] LABS: SARS Covid-2 Antigen Negative (Negative)
[2021-01-17 05:13] LABS: Alcohol Level 148 mg/dL (0-10)
[2021-01-17 05:23] LABS: Thyroid Stimulating Hormone 0.87 uIU/mL (0.27-4.20)
[2021-01-17 07:00] VITALS: BP 139/82; PULSE 76; RESP 17; TEMP 36.8; O2SAT 97
--- NOTE | 2021-01-17 07:57 | PC.NURSE ---
Pt is currently sleeping.
--- NOTE | 2021-01-17 13:14 | PC.NURSE ---
Notified the provider that the patient is anxious and requesting meds.
--- NOTE | 2021-01-17 13:38 | PC.PHAR ---
PT STATES SHE TAKES CARE OF HER OWN MEDICATIONS
[2021-01-17] MEDS: LORazepam 2 mg Tablet PO ×2 (15:08→17:17)
[2021-01-17 15:59] VITALS: BP 125/80; PULSE 78; RESP 16; TEMP 37.1; O2SAT 98
[2021-01-17 16:57] VITALS: BP 125/80; PULSE 78; RESP 16; TEMP 37.1; O2SAT 98
--- NOTE | 2021-01-17 17:17 | PC.NURSE ---
Addendum entered by Ashley Huang LPN 01/17/21 18:03: CIWA REASSESS--NOW AT A 5 Original Note: CIWA SCORE 11-ATIVAN 2 MG GIVEN PO PER PROTOCOL
[2021-01-17] MEDS: OLANZapine 5 mg ODT PO (17:59)
--- NOTE | 2021-01-17 17:59 | PC.NURSE ---
PRN ZYPREXA ZYDIS 5 MG GIVEN PO PER PT C/O STATED AGITATION. PT UP PLEASANT WITH STAFF INTERACTION THOUGH, NO S/S OF AGITATION NOTED. SMILING WITH STAFF.
[2021-01-17 21:03] VITALS: BP 138/90; PULSE 68; RESP 16; TEMP 36.6; O2SAT 98
[2021-01-18 05:47] LABS: Estmated Average Glucose 88; Hemoglobin A1C 4.7 % (4.0-6.0)
[2021-01-18 06:00] VITALS: BP 150/98; PULSE 107; RESP 18; TEMP 36.6; O2SAT 97
[2021-01-18] MEDS: thiamine 100 mg Tablet PO (07:56)
[2021-01-18] MEDS: folic acid 1 mg Tablet PO (07:56)
[2021-01-18] MEDS: multivitamin therapeutic Tablet 1 TAB PO (07:56)
[2021-01-18] MEDS: nicotine 21 mg Patch 1 PATCH TRANSDERMA (08:41)
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
--- NOTE | 2021-01-18 10:48 | NPU.GN ---
[facility] Group Topic:Sail Boat/ Mechanisms General Mood of Group: Kay attended group today. She left a few times and returned. Kay was talkative during group with others. Kay discussed needing a drink today, as people were talking about their sail boats and what the represented. Kay seemed a bit tired and a bit out of sorts today.
[2021-01-18] MEDS: LORazepam 2 mg Tablet PO ×2 (12:14→17:09)
--- NOTE | 2021-01-18 12:14 | PC.NURSE ---
Addendum entered by Ashley Huang LPN 01/18/21 12:47: CIWA SCORE NOW 1--PT IN DAY ROOM WATCHING TV AND CONVERSING IN A CALM MANNER WITH ANOTHER MALE PATIENT. Original Note: CIWA SCORE 14---ATIVAN 2 MG GIVEN PO PER PROTOCOL. PT UP SMILING AT THE DESK, NO OUTWARD S/S OF ANXIETY OBSERVED BUT PT C/O FEELING ANXIOUS TO JAPANESE PROFESSOR.
[2021-01-18] MEDS: hyDROXYzine 25 mg Capsule 50 MG PO ×2 (13:23→21:41)
--- NOTE | 2021-01-18 13:24 | PC.NURSE ---
PRN VISTARIL 50 MG GIVEN PO PER PT C/O STATED ANXIETY
[2021-01-18 14:00] VITALS: BP 111/75; PULSE 84; RESP 17; TEMP 36.7; O2SAT 98
[2021-01-18] MEDS: OLANZapine 5 mg ODT PO (14:27)
--- NOTE | 2021-01-18 14:27 | PC.NURSE ---
PRN ZYPREXA ZYDIS 5 MG GIVEN PO PER PT C/O AGITATION. PT WAS PREVIOUSLY UP ON THE PHONE, LAUGHING AND TALKING CALMLY TO FAMILY MEMBER ON PHONE, PT MED SEEKING FOR ANY AND ALL PRN MEDICATIONS, PRN ATIVAN & VISTARIL ALREADY GIVEN PREVIOUSLY .
--- NOTE | 2021-01-18 17:09 | PC.NURSE ---
Addendum entered by Ashley Huang LPN 01/18/21 17:59: CIWA SCORE NOW 0---NO FURTHER C/O SHAKES OR ANXIETY Original Note: CIWA SCORE 10---ATIVAN 2 MG GIVEN PO PER PROTOCOL. PT WAS ABLE TO EAT DINNER IN THE DAY ROOM, MOOD SEEMS VERY PLEASANT, NO OUTWARD S/S OF ANXIETY NOTED. PT COMPLAINED TO HEALTH EDUCATION ASSISTANT ABOUT HER SHAKES AND BAD ANXIETY
[2021-01-18] MEDS: nicotine 2 mg Gum BUCCAL (21:41)
[2021-01-18 22:00] VITALS: BP 127/84; PULSE 80; RESP 15; TEMP 37.1; O2SAT 99
[2021-01-19] MEDS: trazodone 50 mg Tablet PO ×2 (02:08→22:20)
[2021-01-19 06:00] VITALS: BP 142/90; PULSE 89; RESP 16; TEMP 36.6; O2SAT 95
[2021-01-19] MEDS: OLANZapine 5 mg ODT PO (07:35)
[2021-01-19] MEDS: thiamine 100 mg Tablet PO (08:34)
[2021-01-19] MEDS: multivitamin therapeutic Tablet 1 TAB PO (08:34)
[2021-01-19] MEDS: folic acid 1 mg Tablet PO (08:34)
[2021-01-19] MEDS: nicotine 21 mg Patch 1 PATCH TRANSDERMA (08:35)
[2021-01-19] MEDS: BuSPIRONE 10 mg Tablet 15 MG PO ×2 (08:36→18:01)
--- NOTE | 2021-01-19 13:23 | NPU.GN ---
[facility] Group Topic: Anxiety Bingo General Mood of Group: Kay did attend group and participated. At the end of group as television script writer was about to leave. This television script writer seen Kay upset and crying in her room. This television script writer approached Kay to provide support to Kay. Kay is going through the remembrance of the loss of her son that committed suicide and she has some guilt. This television script writer provided active listening, empathy, and encouraged Kay to try to have positive thoughts, and use some coping skills if needed. This television script writer suggested to Kay that maybe medications need to be adjusted. That television script writer will report this too the medical providers in team meeting that she would like to see the doctor. This television script writer is going to approach Kay tomorrow to discuss her about options of ITCD and CPRC services, for extra support services that are available to her. Kay was calmed down when this television script writer left for team meeting.
[2021-01-19] MEDS: hyDROXYzine 25 mg Capsule 50 MG PO ×2 (13:35→22:20)
--- NOTE | 2021-01-19 13:35 | PC.NURSE ---
Visteril 50mg PO given for anxiety.
[2021-01-19 14:00] VITALS: BP 121/81; PULSE 97; RESP 20; TEMP 36.6; O2SAT 99
[2021-01-19] MEDS: ARIPiprazole 10 mg Tablet PO (16:47)
--- NOTE | 2021-01-19 17:57 | PM.NPN ---
Subjective NPU Subjective: Interval history: Patient resents today reporting that she feels that her most recent appointment with outside provider said light on her reality. She is now convinced that she has bipolar disorder and the challenge has been that she was not on a mood stabilizer. She had previously been on Geodon but she reports that the Geodon made her feel funny, and made her gain weight and feel very lethargic which was a feeling C did not like. Discussed the risk benefits and alternatives of initiating Abilify and he understood and agreed proceed as documented in this note. She also started asking about discharge and we discussed this is a 96-hour hold but that we could begin looking at discharge planning. Mental Status Exam MSE Comments: This is an obese, white female, with adequate dress, and limited grooming and eye contact. No abnormal movements, except for psychomotor retardation. Cooperative with exam in mild to moderate distress. Speech was decreased rate and volume. Mood described as anxious and depressed; affect congruent. Thought process, organized. Thought content: patient denied suicidal or homicidal ideation, there were no delusions reported or noted, patient denied any auditory or visual hallucinations. Attention and concentration, appeared intact and memory was more reliable but none were formally tested. She is alert and oriented times three. Insight and judgment are limited. Impulse control is limited. Vitals/I&O/Wt Last Vital Signs Temp 97.6 F 01/19/21 19:54 Pulse 85 01/19/21 19:54 Resp 18 01/19/21 19:54 BP 106/69 01/19/21 19:54 Pulse Ox 95 01/19/21 19:54 Data NPU : 01/16/21 22:29 01/16/21 22:29 A&P Additional A&P Information (1) Anxiety: (2) Eating disorder: (3) Uncontrolled type 2 diabetes with neuropathy: (4) History of spinal cord injury: (5) Cervical myelopathy: (6) Lumbar disc disease: (7) Sacroiliitis: (8) Grief at loss of child: (9) Borderline personality disorder: (10) Somatization disorder: (11) Major depressive disorder, recurrent severe without psychotic features: (12) PTSD (post-traumatic stress disorder): (13) Alcohol use disorder: Additional A&P Information This is a 55-year-old white female with a long history of alcohol addiction depression trauma challenges with loss of a child who recently has not been taking medication or been in treatment was open to restarting medication and getting engaged in ongoing treatment. 1. Continue current medication. Start Abilify 10 mg p.o. every morning. 2. Continue every 15 minute checks for safety. 3. Encourage individual, group and milieu therapies. 4. Encourage sober living treatment after discharge at the highest level of care to which she is willing to commit. Involuntary Hold Information 96 Hour Hold: 96 Hour Involuntary Admission: Yes 96 Hour Hold Ending Date: 01/24/21 96 Hour Hold Ending Time: 00:01 Attestations NPU Medical Necessity Statement*: Inpatient hospitalization is medically necessary and the clinically appropriate intervention at this time. We will monitor medications and make changes as indicated. Likely length of stay 2-4 days. Coding Level of Care Code Acute Paper Gluing Operator for Rober Arellano
[2021-01-19 19:54] VITALS: BP 106/69; PULSE 85; RESP 18; TEMP 36.4; O2SAT 95
[2021-01-20] MEDS: LORazepam 2 mg Tablet PO (00:40)
--- NOTE | 2021-01-20 04:14 | PC.NURSE ---
Patient received Hydroxyzine 50mg PO and Trazodone 50mg PO for anxiety/sleep. Patient also received 2mg PO Ativan for CIWA scoring.
[2021-01-20] MEDS: nicotine 2 mg Gum BUCCAL (05:42)
[2021-01-20 06:00] VITALS: BP 106/69; PULSE 90; RESP 18; TEMP 36.9; O2SAT 97
[2021-01-20] MEDS: multivitamin therapeutic Tablet 1 TAB PO (09:06)
[2021-01-20] MEDS: thiamine 100 mg Tablet PO (09:06)
[2021-01-20] MEDS: ARIPiprazole 10 mg Tablet PO (09:07)
[2021-01-20] MEDS: folic acid 1 mg Tablet PO (09:07)
[2021-01-20] MEDS: BuSPIRONE 10 mg Tablet 15 MG PO ×2 (09:07→21:17)
[2021-01-20] MEDS: hyDROXYzine 25 mg Capsule 50 MG PO ×2 (10:31→17:10)
--- NOTE | 2021-01-20 10:31 | PC.NURSE ---
PRN VISTARIL 50 MG GIVEN PO PER PT C/O STATED ANXIETY. PT SMILING WHILE TALKING TO THIS STAFF, MOOD IS PLEASANT, NO OUTWARD S/S OF ANXIETY NOTED
--- NOTE | 2021-01-20 12:03 | NPU.GN ---
[facility] Group Topic: Anger General Mood of Group: Kay did attend group today. Kay did great and was talkative and seems to be in a better place with her mental health. This film writer engaged in discussion with Kay after group and Kay would like to sign up for CPRC and ITCD services. Kay stated to this film writer that she wants help with alot of things and sobriety is one of them. This film writer is coordinating to set Kay up with those services at [facility].
--- NOTE | 2021-01-20 12:27 | ECG_ITS ---
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 Measurements Intervals [place] Rate: 69 P: 58 DE: 157 QRS: 37 QRSD: 89 T: 44 QT: 414 QTc: 445 Interpretive Statements SINUS RHYTHM Compared to ECG 01/17/2021 01:24:00 No significant changes Electronically Signed On 01-21-2021 5:42:44 CDT by Donna Davis M.D. [id number]
[2021-01-20 13:37] VITALS: BP 132/79; PULSE 92; RESP 20; TEMP 36.3; O2SAT 96
--- NOTE | 2021-01-20 13:44 | P.PN_ITS ---
Subjective NPU Subjective: Interval history: Patient presents today reporting that she needs to get back to work and that the Sameera seems to be working okay. She reports that she is very happy she came to the hospital and she feels that she got the things he needs that she can proceed with health and prosperity. We discussed the risk-benefit and alternatives of considering a discharge in the morning and he understood agreed proceed as is documented in this note. Mental Status Exam MSE Comments: This is an obese, white female, with adequate dress, and limited grooming and eye contact. No abnormal movements, except for psychomotor retardation. Cooperative with exam in no acute distress. Speech was more normal rate and volume. Mood described as a little better; affect congruent. Thought process, organized. Thought content: patient denied suicidal or homicidal ideation, there were no delusions reported or noted, patient denied any auditory or visual hallucinations. Attention and concentration, appeared intact and memory was more reliable but none were formally tested. She is alert and oriented times three. Insight and judgment are limited. Impulse control is limited. Vitals/I&O/Wt Last Vital Signs Temp 98.5 F 01/20/21 06:00 Pulse 90 01/20/21 06:00 Resp 18 01/20/21 06:00 BP 106/69 01/20/21 06:00 Pulse Ox 97 01/20/21 06:00 Data NPU : 01/16/21 22:29 01/16/21 22:29 A&P Additional A&P Information (1) Anxiety: (2) Eating disorder: (3) Uncontrolled type 2 diabetes with neuropathy: (4) History of spinal cord injury: (5) Cervical myelopathy: (6) Lumbar disc disease: (7) Sacroiliitis: (8) Grief at loss of child: (9) Borderline personality disorder: (10) Somatization disorder: (11) Major depressive disorder, recurrent severe without psychotic features: (12) PTSD (post-traumatic stress disorder): (13) Alcohol use disorder: Additional A&P Information This is a 55-year-old white female with a long history of alcohol addiction depression trauma challenges with loss of a child who recently has not been taking medication or been in treatment was open to restarting medication and getting engaged in ongoing treatment. 1. Continue current medication. 2. Continue every 15 minute checks for safety. 3. Encourage individual, group and milieu therapies. 4. Encourage sober living treatment after discharge at the highest level of care to which she is willing to commit. Involuntary Hold Information 96 Hour Hold: 96 Hour Involuntary Admission: Yes 96 Hour Hold Ending Date: 01/24/21 96 Hour Hold Ending Time: 00:01 Attestations NPU Medical Necessity Statement*: Inpatient hospitalization is medically necessary and the clinically appropriate intervention at this time. We will monitor medications and make changes as indicated. Likely length of stay 1-3 days. Coding Level of Care Code Acute Pediatric Ophthalmologist for Rober Arellano
[2021-01-20 14:12] LABS: Troponin(5th) Baseline < 6 ng/L (0-10)
--- NOTE | 2021-01-20 14:27 | ECG_ITS ---
[facility] Test Date: 2021-01-20 Pat Name: Kay Calles Department: Room: 153 Gender: Female Hot Car Charger: : 1965 Requested By: Marcell Archibald Order Number: [id number] Parker MD: Donna Davis M.D. Measurements Intervals [place] Rate: 79 P: 71 NC: 157 QRS: 54 QRSD: 86 T: 46 QT: 402 QTc: 462 Interpretive Statements SINUS RHYTHM Compared to ECG 01/20/2021 13:41:18 No significant changes Electronically Signed On 01-21-2021 5:49:04 CDT by Donna Davis M.D. [id number]
--- NOTE | 2021-01-20 15:21 | PC.NURSE ---
Addendum entered by Ashley Huang LPN 01/20/21 15:23: note was supposed to be timed for 1220 on 01/20/21 Original Note: pt up to desk, says she feeling some chest pain PRN Nitro requested from pharmacy, they said they would be down shortly. buyer notified Dr. Archibald about said chest pain, order put in for stat Troponin levels and EKG.
[2021-01-20 15:59] LABS: Troponin 5 2HR Delta 0.00001 ABS# (0-10)
--- NOTE | 2021-01-20 17:11 | PC.NURSE ---
PRN VISTARIL 50 MG GIVEN PO PER PT C/O ANXIETY
[2021-01-20 20:50] LABS: Troponin 5 6HR Delta 0.00001 ng/L (0-12)
[2021-01-20] MEDS: trazodone 50 mg Tablet PO (21:14)
[2021-01-20 21:33] VITALS: BP 132/79; PULSE 92; RESP 20; TEMP 36.3; O2SAT 96
[2021-01-21] MEDS: trazodone 50 mg Tablet PO (00:47)
[2021-01-21] MEDS: OLANZapine 5 mg ODT PO (02:00)
[2021-01-21] MEDS: hyDROXYzine 25 mg Capsule 50 MG PO ×2 (02:00→11:29)
[2021-01-21 06:00] VITALS: BP 114/73; PULSE 91; RESP 18; TEMP 36.9; O2SAT 96
[2021-01-21] MEDS: ARIPiprazole 10 mg Tablet PO (08:23)
[2021-01-21] MEDS: folic acid 1 mg Tablet PO (08:23)
[2021-01-21] MEDS: thiamine 100 mg Tablet PO (08:23)
[2021-01-21] MEDS: multivitamin therapeutic Tablet 1 TAB PO (08:23)
[2021-01-21] MEDS: BuSPIRONE 10 mg Tablet 15 MG PO (10:27)
[2021-01-21] MEDS: nicotine 21 mg Patch 1 PATCH TRANSDERMA (10:39)
[2021-01-21 13:38] VITALS: BP 110/67; PULSE 68; RESP 17; TEMP 35.9; O2SAT 97
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
[2021-01-21 13:57] VITALS: BP 110/67; PULSE 68; RESP 17; TEMP 35.9; O2SAT 97
== END 2021-01-21 15:25 | disposition home or self-care (01) | DRG 885 ==
LOC: ER 01-17 07:02 → NP 01-18 06:04
PROVIDERS: Emergency Medicine; Admitting Provider Psychiatry & Neurology Psychiatry; Emergency Provider Family Medicine; PCP Internal Medicine; Visit Provider Psychiatry & Neurology Psychiatry
DX: F33.2 Major depressive disorder, recurrent severe without psychotic features (principal); F10.180 Alcohol abuse with alcohol-induced anxiety disorder; F50.2 Bulimia nervosa; R45.851 Suicidal ideations; F43.10 Post-traumatic stress disorder, unspecified; F41.9 Anxiety disorder, unspecified; F10.129 Alcohol abuse with intoxication, unspecified; E11.40 Type 2 diabetes mellitus with diabetic neuropathy, unspecified; G89.29 Other chronic pain; K75.81 Nonalcoholic steatohepatitis (NASH); F17.210 Nicotine dependence, cigarettes, uncomplicated; Y90.6 Blood alcohol level of 120-199 mg/100 ml; F45.9 Somatoform disorder, unspecified; F12.90 Cannabis use, unspecified, uncomplicated; Z91.51 Personal history of suicidal behavior; Z91.52 Personal history of nonsuicidal self-harm; Z63.4 Disappearance and death of family member; Z81.8 Family history of other mental and behavioral disorders; Z62.810 Personal history of physical and sexual abuse in childhood; Z87.828 Personal history of other (healed) physical injury and trauma
CPT/HCPCS: 36415; 80053; 80306; 80307; 81003; 83036; 84443; 84484; 85025; 87426; 93005; 96372; 97150; 97165; 99285; J3486

== ENCOUNTER → 2021-04-12 14:26 | Outpatient (BNVA) | payer MEDICARE, MEDICAID, OTHER, SELFPAY | PROVIDERS: PCP Internal Medicine; Visit Provider Nurse Practitioner Psychiatric/Mental Health | DX: F31.81 Bipolar II disorder (principal); F43.12 Post-traumatic stress disorder, chronic; Z79.899 Other long term (current) drug therapy; F10.20 Alcohol dependence, uncomplicated; F50.01 Anorexia nervosa, restricting type; F12.20 Cannabis dependence, uncomplicated | CPT/HCPCS: 99215 ==

== ENCOUNTER → 2021-04-15 10:36 | Outpatient (BNVA) | payer MEDICARE, MEDICAID, OTHER, SELFPAY | PROVIDERS: PCP Internal Medicine; Visit Provider Nurse Practitioner Psychiatric/Mental Health | DX: Z79.899 Other long term (current) drug therapy (principal) | CPT/HCPCS: 80053; 80306 ==

== ENCOUNTER → 2021-05-11 06:49 | Outpatient (BNVA) | payer MEDICARE, MEDICAID, SELFPAY | PROVIDERS: PCP Internal Medicine; Visit Provider Nurse Practitioner Psychiatric/Mental Health | DX: F31.81 Bipolar II disorder (principal); F50.01 Anorexia nervosa, restricting type; F43.12 Post-traumatic stress disorder, chronic; F12.20 Cannabis dependence, uncomplicated; F10.20 Alcohol dependence, uncomplicated | CPT/HCPCS: 99214 ==

== ENCOUNTER → 2021-05-11 11:57 | Day surgery (SDC) | payer MEDICARE, MEDICAID, SELFPAY ==
[2021-05-11 12:05] VITALS: BP 137/63; PULSE 87; RESP 18; TEMP 36.2; O2SAT 98; BMI 37.8
[2021-05-11] MEDS: ferric carboxy (IVPB) 750 MG in sodium chloride 0.9% (100 ml) 100 ML 345 MG IV (12:17)
== END ==
PROVIDERS: PCP Internal Medicine; Visit Provider Internal Medicine
DX: D50.9 Iron deficiency anemia, unspecified (principal)
CPT/HCPCS: 96365; J1439

== ENCOUNTER → 2021-05-19 10:50 | Day surgery (SDC) | payer MEDICARE, MEDICAID, SELFPAY ==
[2021-05-19 11:25] VITALS: BP 125/63; PULSE 75; RESP 18; TEMP 36.3; O2SAT 98
[2021-05-19] MEDS: ferric carboxy (IVPB) 750 MG in sodium chloride 0.9% (100 ml) 100 ML 345 MG IV (11:28)
== END ==
PROVIDERS: PCP Internal Medicine; Visit Provider Internal Medicine
DX: D50.9 Iron deficiency anemia, unspecified (principal)
CPT/HCPCS: 96365; J1439

== ENCOUNTER 2021-06-01 10:44 | Outpatient (CLI) | payer MEDICARE, MEDICAID, SELFPAY ==
--- NOTE | 2021-06-01 11:05 | MM_ITS ---
WS: [id number] BILATERAL DIGITAL SCREENING MAMMOGRAPHY WITH CAD CLINICAL INFORMATION: SCREENING HISTORY: Screening mammogram. No current complaints. COMPARISON: 015 TECHNIQUE: Bilateral CC and MLO views. FINDINGS: Scattered fibroglandular densities bilaterally. 5 x 7 mm asymmetric density outer LEFT breast mid dep th. Recommend further evaluation with spot compression views and ultrasound. This may represent intra mammary lymph node but indeterminant. RIGHT breast is unremarkable. MM/[place] [id number] IMPRESSION: BI-RADS: 0-Incomplete: Need additional imaging evaluation FOLLOW UP: Need Additional Imaging Recommend LEFT breast diagnostic mammography and ultrasound in further evaluati on.
== END 2021-06-01 10:45 | disposition home or self-care (01) ==
PROVIDERS: PCP Internal Medicine; Visit Provider Nurse Practitioner
DX: Z12.31 Encounter for screening mammogram for malignant neoplasm of breast (principal)
CPT/HCPCS: 77067

== ENCOUNTER → 2021-06-08 07:20 | Outpatient (BNVA) | payer MEDICARE, MEDICAID, OTHER, SELFPAY | PROVIDERS: PCP Internal Medicine; Visit Provider Nurse Practitioner Psychiatric/Mental Health | DX: F31.81 Bipolar II disorder (principal); F50.01 Anorexia nervosa, restricting type; F43.12 Post-traumatic stress disorder, chronic; F60.3 Borderline personality disorder; F12.20 Cannabis dependence, uncomplicated; F10.20 Alcohol dependence, uncomplicated | CPT/HCPCS: 99214 ==

== ENCOUNTER 2021-06-15 16:28 | Emergency (ER) | payer MEDICARE, MEDICAID, SELFPAY ==
[2021-06-15 16:46] VITALS: BP 130/70; PULSE 77; TEMP 36.9; O2SAT 99
[2021-06-15 16:51] VITALS: BP 130/70; PULSE 75; RESP 16; TEMP 36.9; O2SAT 98; BMI 38.3
--- NOTE | 2021-06-15 17:08 | W.ED.BACK ---
HPI - Back Pain/Injury General: Chief Complaint: Back Pain/Injury Stated Complaint: severe lower back pain, cant walk Time Seen by Provider: 06/15/21 17:06 History of Present Illness: A 56-year-old female comes in today with complaints of low back pain with pain into the hips for the last 2 weeks. Patient is also noted some foul-smelling urine and blood in stool. Patient reports she saw blood in her stool for 2 days but no longer has any blood in her stool. Patient also has a history of diabetes, Nuñez, CHF, chronic back pain, lumbar disc disease, substance abuse disorder, and bipolar disorder. Review of Systems General: Reports: 10 or more systems reviewed and unremarkable except in HPI and below Musc: Reports: back pain PFSH ED PFSH: Medical History (Updated 06/15/21 @ 18:00 by ALBIN Helms) Alcohol use disorder, severe, dependence Anorexia nervosa, restricting type Bilateral primary osteoarthritis of hip Bipolar II disorder Cannabis dependence, continuous Chronic back pain Chronic post-traumatic stress disorder Congestive heart failure Diabetes mellitus H/O Belkys-Valenzuela syndrome (~07/2019) EGD at [facility]. EGD 10/26 negative. NUÑEZ (nonalcoholic steatohepatitis) Nicotine dependence, cigarettes, uncomplicated Psychiatric care Sacroiliitis Uncontrolled type 2 diabetes with neuropathy Surgical History (Updated 04/19/21 @ 07:56 by Alecia Jo RN) H/O cervical spine surgery H/O colonoscopy History of esophagogastroduodenoscopy Family History (Updated 04/18/21 @ 11:49 by Alecia Jo RN) Son Suicide September 2019 Other Cancer Hypertension Psychiatric illness Social History (Updated 04/18/21 @ 11:57 by Alecia Jo RN) Smoking and tobacco status: current every day smoker cigarettes Packs smoked per day: 0.5 Years cigarettes smoked: 32 Quit status (tobacco): has tried quititng Alcohol intake: former Former alcohol use details: 8 days sober Adopted: No Caregiver/support person: Yes (cleans and runs errands) Lives independently: No Household members: significant other Housing: Apartment Marital status: Single Number of children: 2 Number of grandchildren: 0 Highest education level completed: Associate Degree: Occupational, Technical, Vocational Program 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 service: No Current occupational status: disabled Pets and animals: Yes Pets & animals: cat(s) History of recent travel: No Leisure activites: music and games Sexually active: Yes Current gender identity: Female Aparna/Presybeterian: Scientologist Special aparna needs: No Agree to transfusion: Yes Financial difficulty paying for basics: Not Very Hard Female Reproductive History: Para: 2 Spontaneous abortions: Yes (10) Physical Exam Const: COMMON NORMALS: alert Neck/C-Spine: COMMON NORMALS: full ROM (Painless) Lymph: LYMPHATIC: no lymphadenopathy noted Resp: COMMON NORMALS: normal respiratory effort and clear to auscultation bilaterally AUSCULTATION: clear to auscultation bilaterally Cardio: COMMON NORMALS: regular rate and regular rhythm RATE: regular rate RHYTHM: regular rhythm GI: COMMON NORMALS: Soft to palpation and non-tender PALPATION: Yes Soft to palpation : BLADDER/KIDNEY EXAM: Yes CVA tenderness on the right Back/Pelvis: GENERAL BACK: Yes CVA tenderness LUMBAR SPINE/LOWER BACK: Yes lumbar spinal tenderness Lumbar spinal tenderness location: L4 and L5 Extremity: COMMON NORMALS: full ROM Neuro: SENSORIUM/ORIENTATION: Yes alert Psych: COMMON NORMALS: cooperative Skin: COMMON NORMALS: no rashes or lesions noted GENERAL SKIN EXAM: no rashes or lesions noted Course Vital Signs: Vital signs: Vital Signs Temperature 98.4 F 06/15/21 16:51 Pulse Rate 75 06/15/21 16:51 Respiratory Rate 16 06/15/21 16:51 Blood Pressure 130/70 06/15/21 16:51 Pulse Oximetry 98 06/15/21 16:51 MDM - Back Pain/Injury Medical Decision Making 56-year-old female comes in today with complaints of low back pain worse in the morning. Patient is also noticed some abnormalities in her urine which it smells real sweet, patient also reports some blood in her stool. On exam abdomen soft nontender. Patient did have some right CVA tenderness on palpation, and lumbar spinal tenderness on palpation around L5-S1 and L4-L5 areas. Patient moves all extremities well. Patient has increased pain with standing. Differential diagnosis includes but not limited to UTI, hemorrhoids, anemia, facet arthritis, intervertebral disc disease. CBC was normal without any signs of anemia. Urinalysis was clear. X-ray of the lumbar spine indicates significant lumbar facet arthritis L4-L5 and L5-S1 areas. Believe patient's pain is secondary to her facet arthritis. Patient no sign of urinary tract infection at this time. I recommended patient follow-up with primary care regarding blood in stools for colonoscopy referral. I reviewed patient with concerns of facet arthritis and recommendations for treatment of pain with maintaining activity. Patient reported understanding agreed to plan. Patient was written for 10 tablets of hydrocodone to be used for severe pain. Review of the record indicated no recent prescriptions. Patient was given 10 mg of dexamethasone IM for inflammation secondary to arthritis. Labs : 06/15/21 17:32 Laboratory Results WBC 5.3 10^3/uL (4.0-10.0) 06/15/21 17:32 RBC 4.28 10^6/uL (4.1-5.3) 06/15/21 17: Hgb 12.8 g/dL (11.5-15.3) 06/15/21 17: Hct 39.5 % (37.0-47.0) 06/15/21 17:32 MCV 92.3 fl (81-99) 06/15/21 17: MCH 29.9 pg (28.0-34.0) 06/15/21 17: MCHC 32.4 g/dL (30.0-36.0) 06/15/21 17:32 RDW 16.6 % (12.1-15.1) H 06/15/21 17:32 Plt Count 107 10^3/cmm (130-400) L 06/15/21 17:32 MPV 9.5 fL (7.4-10.4) 06/15/21 17:32 Neut % (Auto) 67.4 % 06/15/21 17:32 Lymph % (Auto) 22.1 % 06/15/21 17:32 [place] % (Auto) 7.0 % 06/15/21 17:32 Eos % (Auto) 2.5 % 06/15/21 17:32 Baso % (Auto) 0.6 % 06/15/21 17:32 Neut # (Auto) 3.55 10^3/uL (1.8-7.7) 06/15/21 17:32 Lymph # (Auto) 1.2 10^3/uL (0.8-4.8) 06/15/21 17:32 [place] # (Auto) 0.4 10^3/uL (0.2-0.9) 06/15/21 17:32 Eos # (Auto) 0.1 10^3/uL (0.0-0.8) 06/15/21 17:32 Baso # (Auto) 0.0 10^3/uL (0.0-0.1) 06/15/21 17:32 Nucleated RBC % (auto) 0 % 06/15/21 17:32 Nucleated RBCs # 0.0 /100WBC 06/15/21 17:32 Urine Color Yellow (Yellow) 06/15/21 17:11 Urine Appearance Clear (CLEAR) 06/15/21 17:11 Urine pH 7 (5-7) 06/15/21 17:11 Ur Specific [place] 1.015 (1.005-1.030) 06/15/21 17:11 Urine Protein Neg (Negative) 06/15/21 17:11 Urine Glucose (UA) Norm (Normal) 06/15/21 17:11 Urine Ketones Negative (Negative) 06/15/21 17:11 Urine Blood Neg (Negative) 06/15/21 17:11 Urine Nitrate Negative (Negative) 06/15/21 17:11 Urine Bilirubin Neg (Negative) 06/15/21 17:11 Urine Urobilinogen 4 mg/dL (Negative) H 06/15/21 17:11 Ur Leukocyte Esterase Negative (Negative) 06/15/21 17:11 Discharge Plan Discharge Patient Disposition: Home Clinical Impression: Arthritis of facet joint of lumbar spine Condition: Stable Prescriptions: New hydrocodone-acetaminophen 5-325 mg tablet 1 tab PO Q6H PRN (Reason: pain (scale score 7-10)) Qty: 10 0RF No Action chlorpromazine 25 mg tablet 25 mg PO BEDTIME Qty: 30 3RF Rx Instructions: Take one tablet at bedtime gabapentin 300 mg capsule 300 mg PO TID Qty: 90 3RF Rx Instructions: Take one capsule three times per day nitroglycerin [Nitrostat] 0.4 mg tablet, sublingual 0.4 mg SUBLINGUAL Q5M PRN (Reason: Chest Pain) 0RF epinephrine 0.3 mg/0.3 mL auto-injector 0.3 mg IM Q10M PRN (Reason: Chest Pain) 0RF Rx Instructions: for 2 doses albuterol sulfate 90 mcg/actuation HFA aerosol inhaler 2 inh INHALATION Q4H PRN (Reason: shortness of breath or wheezing) Qty: 18 0RF Discharge Orders: Discharge ED (Routine); Ordered 06/15/21 Ordered By: Migue Churchill Referrals: Eber Garsia DO [Primary Care Provider] - Discharge Diet: Usual diet Discharge Activity: Increase activity as tolerated Patient Instructions: Degenerative Disc Disease (ED), Opioid Safety Activity Restrictions/Additional Instructions: Activity as tolerated. Use a walker to help with ambulation in the morning. Try to maintain activity as much as possible. You have real severe facet arthritis of the lumbar spine. This is in your lower back. In the morning the pain may be the worst but will improve with movement throughout the day. Follow-up with primary care for recommendations of treatment and pain management. Return to ER for new concerns. Coding Level of Care Code ED Paper Production Engineer for Rober Fwshanique Exam Comprehensive
--- NOTE | 2021-06-15 17:19 | XRR_ITS ---
PROCEDURE INFORMATION: Exam: XR Lumbosacral Spine Exam date and time: 06/15/2021 5:19 PM Age: 56 years old Clinical indication: Low back pain TECHNIQUE: Imaging protocol: XR of the lumbosacral spine. Views: 2 or 3 views. COMPARISON: MR lumbar spine wo con* [id number] 05/13/2019 1:35 PM FINDINGS: Bones/joints: Spinal alignment is normal. Vertebral body height is maintained. No acute fracture. There is marked lower lumbar facet spondylosis, greatest at L4-L5 and L5-S1. Disc height is maintained. The visible portion of the pelvis and sacrum is intact. There is an enlarged left L5 transverse process which forms a pseudoarthrosis with the left sacral ala. Soft tissues: Unremarkable. XR/XR lumbar spine 2-3V* [id number] IMPRESSION: 1. No acute findings. 2. Severe lower lumbar facet spondylosis. 3. Partial sacralization L5 with enlarged left transverse process.
[2021-06-15 17:22] LABS: Add Urine Microscopic? NO; Charge for UA Resulting for Rev
[2021-06-15 17:33] LABS: Bilirubin Urine Neg (Negative); Blood Urine Neg (Negative); Glucose Urine UA Norm (Normal); Ketones Urine Negative (Negative); Leukocyte Esterase Urine Negative (Negative); Nitrate Urine Negative (Negative); Protein Urine Neg (Negative); Specific Gravity, Urine 1.015 (1.005-1.030); Urine Appearance Clear (CLEAR); Urine Color Yellow (Yellow); Urobilinogen Urine 4 mg/dL (Negative); pH Urine 7 (5-7)
[2021-06-15] MEDS: HYDROcodone-acetaminophen 5-325 mg Tablet 1 TAB PO (17:37)
[2021-06-15 17:55] LABS: Basophils % 0.6 %; Eosinophils # 0.1 10^3/uL (0.0-0.8); Eosinophils % 2.5 %; Hematocrit 39.5 % (37.0-47.0); Hemoglobin 12.8 g/dL (11.5-15.3); Lymphocytes # 1.2 10^3/uL (0.8-4.8); Lymphocytes % 22.1 %; Mean Corpuscular HGB Conc 32.4 g/dL (30.0-36.0); Mean Corpuscular Hemoglobin 29.9 pg (28.0-34.0); Mean Corpuscular Volume 92.3 fl (81-99); Mean Platelet Volume 9.5 fL (7.4-10.4); Monocytes # 0.4 10^3/uL (0.2-0.9); Neutrophils # 3.55 10^3/uL (1.8-7.7); Neutrophils % 67.4 %; Nucleated Red Blood Cells % 0 %; Platelet Count 107 10^3/cmm (130-400); Red Blood Count 4.28 10^6/uL (4.1-5.3); Red Cell Distribution Width 16.6 % (12.1-15.1); White Blood Count 5.3 10^3/uL (4.0-10.0)
[2021-06-15] MEDS: dexamethasone 10 mg/mL INJ IM (18:07)
== END 2021-06-15 18:12 | disposition home or self-care (01) ==
PROVIDERS: Emergency Provider Nurse Practitioner Family; PCP Internal Medicine
DX: M47.816 Spondylosis without myelopathy or radiculopathy, lumbar region (principal); I50.9 Heart failure, unspecified; E11.9 Type 2 diabetes mellitus without complications; F17.210 Nicotine dependence, cigarettes, uncomplicated
CPT/HCPCS: 72100; 81003; 85025; 96372; 99283; J1100

== ENCOUNTER 2021-06-21 13:15 | Emergency (ER) | payer MEDICARE, MEDICAID, SELFPAY ==
[2021-06-21 13:21] VITALS: BP 120/71; PULSE 98; RESP 18; TEMP 36.7; O2SAT 98; BMI 37.3
--- NOTE | 2021-06-21 13:27 | ECG_ITS ---
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 Measurements Intervals [place] Rate: 86 P: 39 NH: 158 QRS: 24 QRSD: 88 T: 39 QT: 382 QTc: 459 Interpretive Statements SINUS RHYTHM Compared to ECG 01/20/2021 14:21:37 No significant changes Electronically Signed On 06-21-2021 22:24:07 CDT by Joel Garza M.D. [id number]
--- NOTE | 2021-06-21 13:27 | XR_ITS ---
WS: [id number] XR chest 1V portable [id number] REASON FOR EXAM: chest pain FINDINGS: The chest is unchanged compared to 10/30/2020. Heart and mediastinum are within normal limits. Calcified granulomatous disease bilaterally. No active pulmonary parenchymal or pleural disease. Mild degenerative spondylosis in the mid and lower thoracic spine. XR/XR chest 1V portable [id number] IMPRESSION: No acute chest abnormality.
[2021-06-21 13:31] VITALS: BP 120/71; PULSE 98; RESP 18; TEMP 36.7; O2SAT 98
--- NOTE | 2021-06-21 13:33 | ED_ITS ---
HPI - Chest Pain General: Chief Complaint: Chest Pain Stated Complaint: Chest Pain, fever Time Seen by Provider: 06/21/21 13:24 Source: patient Mode of arrival: ambulatory Limitations: no limitations History of Present Illness: 56-year-old female presents emergency room with complaint of chest pain. States began yesterday at around noon she got some psychologically distressing news via a ladder and began having chest discomfort rating into her right shoulder and her right arm. She had some mild shortness of breath with she took a nitro it seemed to get better she dismissed it for the remainder of the day when she went to bed last night she was still having the discomfort when she woke up and seemed a little bit worse she eventually decided to come in to be evaluated she is not on anything else that seems to exacerbate it. She did not repeat any nitro. She tells me she has a history of coronary artery disease. She had a stress test done in 2018 which was negative she tells me she had an angiogram done in 2007 I cannot find records for that having been done here although because of the EMR change some of them are difficult to pull up or will not pull up. There is no notation in it in previous H&P's for hospitalization. Patient has had multiple hospitalizations related to alcohol use to psychiatric department. He does not appear to be acutely intoxicated at this time. MD complaint: chest pain Pertinent past history: coronary artery disease Timing of current episode: episodic Prior episodes: Yes Onset: during rest Pain location: left chest Pain radiation: right arm and right shoulder Severity: mild Quality: tightness, aching and heaviness Relieving factors: nitroglycerin Exacerbating factors: stress Associated symptoms: Deny abdominal pain, diaphoresis, dyspnea, fever(s), leg edema, nausea, palpitations, sense of impending doom, syncope or vomiting Treatment prior to arrival: nitroglycerin Review of Systems Const: Denies: fever(s) or diaphoresis ENMT: Denies: throat pain, ear or mastoid pain, nasal discharge or nasal congestion Card: Denies: palpitations or syncope Resp: Denies: dyspnea GI: Denies: abdominal pain, nausea or vomiting : Denies: flank pain, difficulty voiding, dysuria, urinary frequency or urinary urgency Skin/Breast: Denies: rash or pruritus PFS ED PFSH: Medical History Alcohol use disorder, severe, dependence Anorexia nervosa, restricting type Bilateral primary osteoarthritis of hip Bipolar II disorder Cannabis dependence, continuous Chronic back pain Chronic post-traumatic stress disorder Congestive heart failure Diabetes mellitus H/O Belkys-Valenzuela syndrome (~07/2019) EGD at [facility]. EGD 10/26 negative. MONTANO (nonalcoholic steatohepatitis) Nicotine dependence, cigarettes, uncomplicated Psychiatric care Sacroiliitis Uncontrolled type 2 diabetes with neuropathy Surgical History H/O cervical spine surgery H/O colonoscopy History of esophagogastroduodenoscopy Family History Son Suicide September 2019 Other Cancer Hypertension Psychiatric illness Social History Smoking and tobacco status: current every day smoker cigarettes Packs smoked per day: 0.5 Years cigarettes smoked: 32 Quit status (tobacco): has tried quititng Alcohol intake: former Former alcohol use details: 8 days sober Adopted: No Caregiver/support person: Yes (cleans and runs errands) Lives independently: No Household members: significant other Housing: Apartment Marital status: Single Number of children: 2 Number of grandchildren: 0 Highest education level completed: Associate Degree: Occupational, Technical, Vocational Program Education level details: [employer] service: No Current occupational status: disabled Pets and animals: Yes Pets & animals: cat(s) History of recent travel: No Leisure activites: music and games Sexually active: Yes Current gender identity: Female Aparna/Rastafari: Amish Special aparna needs: No Agree to transfusion: Yes Financial difficulty paying for basics: Not Very Hard Female Reproductive History: Para: 2 Spontaneous abortions: Yes (10) Physical Exam Const: COMMON NORMALS: no acute distress GENERAL APPEARANCE: cooperative and comfortable ORIENTATION/CONSCIOUSNESS: Yes awake, Yes oriented to person, Yes oriented to place and Yes oriented to time HENMT: COMMON NORMALS: normocephalic, atraumatic and hearing grossly normal bilaterally HEAD & SCALP: normocephalic and atraumatic Neck/C-Spine: COMMON NORMALS: no JVD Resp: COMMON NORMALS: normal respiratory effort, No retractions, No use of accessory muscles and clear to auscultation bilaterally AUSCULTATION: clear to auscultation bilaterally Cardio: COMMON NORMALS: no JVD, regular rate, regular rhythm and No murmurs present (Cardio) RATE: regular rate RHYTHM: regular rhythm GI: COMMON NORMALS: Soft to palpation and No hepatosplenomegaly present AUSCULTATION: Yes normoactive bowel sounds PALPATION: Yes Soft to palpation, No Tenderness to palpation present (GI), No Guarding due to palpation present (GI) and Yes No hepatosplenomegaly present Extremity: COMMON NORMALS: normal to inspection, capillary refill normal, no clubbing, cyanosis or edema, no calf tenderness and no pedal edema Neuro: SENSORIUM/ORIENTATION: Yes oriented to person, Yes oriented to place and Yes oriented to time Skin: COMMON NORMALS: no rashes or lesions noted GENERAL SKIN EXAM: no rashes or lesions noted Course Vital Signs: Vital signs: Vital Signs Temperature 98.1 F 06/21/21 13:31 Pulse Rate 80 06/21/21 15:44 Respiratory Rate 16 06/21/21 15:44 Blood Pressure 145/104 06/21/21 15:44 Pulse Oximetry 96 06/21/21 15:44 MDM - Chest Pain Medical Decision Making Discharge patient home will make referral to [facility] for her she was given the contact information to go there for intake. Additionally started on 15 mg of isosorbide initially wrote for 30 minutes to just take a half a tablet as her blood pressure is 120 systolic at the time of discharge. She lists aspirin as an allergy but she is listed because she said she has liver problems they told her not to take NSAIDs for now have her take a baby aspirin daily. We will get her set up for a Lexiscan sestamibi stress test as an outpatient. Return if has further problems. Medical Records I reviewed the patient's medical records. Lab Data I reviewed the patient's lab results. : 06/21/21 13:48 06/21/21 13:48 Radiology Impressions Chest X-Ray 06/21/21 13:27 IMPRESSION: No acute chest abnormality. Laboratory Results WBC 5.2 10^3/uL (4.0-10.0) 06/21/21 13:48 RBC 4.20 10^6/uL (4.1-5.3) 06/21/21 13:48 Hgb 12.6 g/dL (11.5-15.3) 06/21/21 13:48 Hct 37.9 % (37.0-47.0) 06/21/21 13:48 MCV 90.2 fl (81-99) 06/21/21 13:48 MCH 30.0 pg (28.0-34.0) 06/21/21 13:48 MCHC 33.2 g/dL (30.0-36.0) 06/21/21 13:48 RDW 16.1 % (12.1-15.1) H 06/21/21 13:48 Plt Count 102 10^3/cmm (130-400) L 06/21/21 13:48 MPV 10.0 fL (7.4-10.4) 06/21/21 13:48 Neut % (Auto) 76.5 % 06/21/21 13:48 Lymph % (Auto) 15.0 % 06/21/21 13:48 [place] % (Auto) 5.4 % 06/21/21 13:48 Eos % (Auto) 2.1 % 06/21/21 13:48 Baso % (Auto) 0.6 % 06/21/21 13:48 Neut # (Auto) 3.97 10^3/uL (1.8-7.7) 06/21/21 13:48 Lymph # (Auto) 0.8 10^3/uL (0.8-4.8) 06/21/21 13:48 [place] # (Auto) 0.3 10^3/uL (0.2-0.9) 06/21/21 13:48 Eos # (Auto) 0.1 10^3/uL (0.0-0.8) 06/21/21 13:48 Baso # (Auto) 0.0 10^3/uL (0.0-0.1) 06/21/21 13:48 Nucleated RBC % (auto) 0 % 06/21/21 13:48 Nucleated RBCs # 0.0 /100WBC 06/21/21 13:48 Sodium 138 mmol/L (136-145) 06/21/21 13:48 Potassium 3.9 mmol/L (3.5-5.1) 06/21/21 13:48 Chloride 105 mmol/L (98-107) 06/21/21 13:48 Carbon Dioxide 21 mmol/L (22-29) L 06/21/21 13:48 Anion Gap 15.9 (5-19) 06/21/21 13:48 BUN 8 mg/dL (6-20) 06/21/21 13:48 Creatinine 0.4 mg/dL (0.5-0.9) L 06/21/21 13:48 GFR Calculation 166.3 mL/min (90-130) H 06/21/21 13:48 Glucose 227 mg/dL (65-115) H 06/21/21 13:48 Calculated Osmolality 291 mOsm/kg (285-295) 06/21/21 13:48 Calcium 8.1 mg/dL (8.5-10.5) L 06/21/21 13:48 Total Bilirubin 0.9 mg/dL (0.15-1.2) 06/21/21 13:48 AST 31 U/L (0-32) 06/21/21 13:48 ALT 23 U/L (0-33) 06/21/21 13:48 Alkaline Phosphatase 136 IU/L (35-105) H 06/21/21 13:48 Troponin T Baseline 6 ng/L (0-10) 06/21/21 13:48 Troponin T 120 Minute 6.00 ng/L (0-10) 06/21/21 15:54 Delta Troponin T 0 ABS# (0-10) 06/21/21 15:54 Total Protein 5.8 g/dL (6.6-8.7) L 06/21/21 13:48 Albumin 3.9 g/dL (3.5-5.2) 06/21/21 13:48 Globulin 1.9 g/dL (1.3-4.6) 06/21/21 13:48 Discharge Plan Discharge Patient Disposition: Home Clinical Impression: Atypical chest pain, HTN (hypertension) Condition: Stable Prescriptions: New isosorbide mononitrate 30 mg tablet extended release 24 hr 30 mg PO DAILY Qty: 30 0RF aspirin 81 mg tablet,delayed release (DR/EC) 81 mg PO DAILY Qty: 30 0RF No Action chlorpromazine 25 mg tablet 25 mg PO BEDTIME Qty: 30 3RF Rx Instructions: Take one tablet at bedtime gabapentin 300 mg capsule 300 mg PO TID Qty: 90 3RF Rx Instructions: Take one capsule three times per day nitroglycerin [Nitrostat] 0.4 mg tablet, sublingual 0.4 mg SUBLINGUAL Q5M PRN (Reason: Chest Pain) 0RF epinephrine 0.3 mg/0.3 mL auto-injector 0.3 mg IM Q10M PRN (Reason: Chest Pain) 0RF Rx Instructions: for 2 doses albuterol sulfate 90 mcg/actuation HFA aerosol inhaler 2 inh INHALATION Q4H PRN (Reason: shortness of breath or wheezing) Qty: 18 0RF Discharge Orders: Discharge ED (Routine); Ordered 06/21/21 Ordered By: Gee Huertas Referrals: Eber Garsia DO [Primary Care Provider] - Discharge Diet: Usual diet Discharge Activity: Limit activity as instructed Patient Instructions: Opioid Safety Activity Restrictions/Additional Instructions: COVID strenuous activity. Take baby aspirin 1 daily. reporting manager will make arrangements for you to have a stress test done as an outpatient Coding Level of Care Code ED Health Care Technician for Rober Fwd Exam Comprehensive
[2021-06-21 14:01] LABS: Basophils % 0.6 %; Eosinophils # 0.1 10^3/uL (0.0-0.8); Eosinophils % 2.1 %; Hematocrit 37.9 % (37.0-47.0); Hemoglobin 12.6 g/dL (11.5-15.3); Lymphocytes # 0.8 10^3/uL (0.8-4.8); Mean Corpuscular HGB Conc 33.2 g/dL (30.0-36.0); Mean Corpuscular Volume 90.2 fl (81-99); Monocytes # 0.3 10^3/uL (0.2-0.9); Monocytes % 5.4 %; Neutrophils # 3.97 10^3/uL (1.8-7.7); Neutrophils % 76.5 %; Nucleated Red Blood Cells % 0 %; Platelet Count 102 10^3/cmm (130-400); Red Cell Distribution Width 16.1 % (12.1-15.1); White Blood Count 5.2 10^3/uL (4.0-10.0)
[2021-06-21] MEDS: lidocaine 2% viscous 15 ML, aluminum-mag hydrox-simethicon 30 ML, sucralfate oral liq 1 GM PO (14:24)
[2021-06-21] MEDS: nitroglycerin 1 gm/inch oint Pkt 0.5 INCH TOPICAL (14:24)
[2021-06-21 14:30] LABS: Alanine Aminotransferase 23 U/L (0-33); Albumin Level 3.9 g/dL (3.5-5.2); Alkaline Phosphatase 136 IU/L (35-105); Blood Urea Nitrogen 8 mg/dL (6-20); Calcium 8.1 mg/dL (8.5-10.5); Carbon Dioxide 21 mmol/L (22-29); Chloride 105 mmol/L (98-107); Globulin 1.9 g/dL (1.3-4.6); Glomerular Filtration Rate 166.3 mL/min (90-130); Glucose 227 mg/dL (65-115); Osmolality Calculated 291 mOsm/kg (285-295); Sodium 138 mmol/L (136-145); Total Bilirubin 0.9 mg/dL (0.15-1.2); Total Protein 5.8 g/dL (6.6-8.7)
[2021-06-21 14:32] LABS: Troponin(5th) Baseline 6 ng/L (0-10)
[2021-06-21 14:41] LABS: Anion Gap 15.9 (5-19); Aspartate Amino Transferase 31 U/L (0-32); Potassium 3.9 mmol/L (3.5-5.1)
[2021-06-21 14:54] VITALS: BP 132/90; PULSE 78; O2SAT 99
--- NOTE | 2021-06-21 15:27 | ECG_ITS ---
[facility] Test Date: 2021-06-21 Pat Name: Kay Calles Department: Room: Gender: Female Director Of Creative Services: : 1965 Requested By: Margaret Veras Order Number: [id number] Parker MD: Joel Garza M.D. Measurements Intervals Cavalier Rate: 77 P: 30 SC: 165 QRS: 23 QRSD: 84 T: 31 QT: 387 QTc: 439 Interpretive Statements SINUS RHYTHM Compared to ECG 06/21/2021 13:38:19 No significant changes Electronically Signed On 06-22-2021 20:25:22 CDT by Jeol Garza M.D. [id number]
[2021-06-21 15:44] VITALS: BP 145/104; PULSE 80; RESP 16; O2SAT 96
[2021-06-21 16:52] LABS: Troponin 5 2HR Delta 0 ABS# (0-10)
[2021-06-21 17:00] VITALS: BP 123/83; PULSE 87; RESP 16; O2SAT 96
--- NOTE | 2021-06-28 13:30 | DCPLANNER ---
Addendum entered by Madonna Alex 08/11/21 21:13: Patient had a stress test scheduled - patient did not attend appointment. Original Note: disease case manager had message to schedule an outpatient stress test for patient. disease case manager faxed signed order to centralized scheduling, who will call patient with appointment information.
== END 2021-06-21 17:02 | disposition home or self-care (01) ==
PROVIDERS: Physician Assistant; Emergency Provider Family Medicine; PCP Internal Medicine
DX: R07.89 Other chest pain (principal); I10 Essential (primary) hypertension; F17.210 Nicotine dependence, cigarettes, uncomplicated
CPT/HCPCS: 71045; 80053; 84484; 85025; 93005; 99283

== ENCOUNTER 2021-07-06 08:59 | Outpatient (CLI) | payer MEDICARE, MEDICAID, SELFPAY ==
--- NOTE | 2021-07-06 09:21 | MM_ITS ---
WS: [id number] LEFT 3D TOMOSYNTHESIS DIGITAL MAMMOGRAPHY WITH CAD CLINICAL INFORMATION: INCONCLUSIVE MAMMO COMPARISON: June 01, 2021 TECHNIQUE: 5 views of the left breast were obtained. FINDINGS: Scattered fibroglandular densities of the left breast. Small 4 mm nodule in the anterior outer LEFT b reast is unchanged. Ultrasound is pending. ULTRASOUND BREAST LEFT TECHNIQUE: Ultrasound left breast focused area of concern. CLINICAL INFORMATION: INCONCLUSIVE MAMMO FINDINGS: Ultrasound LEFT breast at the 12 to 3:00 position. Tiny hypoechoic lesion with through transmission c ompatible with a tiny incidental cyst measuring 3.3 x 2.6 x 1.8 mm likely corresponds to the mammogra phic findings. No other suspicious abnormalities. No suspicious lesions to target for biopsy. Recomme nd return to annual screening mammography. MM/[place] [id number] IMPRESSION: BI-RADS: 2-Benign FOLLOW UP: 1 Year Follow-up Recommend return to annual screening mammography.
== END 2021-07-06 09:00 | disposition home or self-care (01) ==
LOC: RAD 09:01
PROVIDERS: PCP Internal Medicine; Visit Provider Nurse Practitioner
DX: R92.2 Inconclusive mammogram (principal)
CPT/HCPCS: 76642; 77061

== ENCOUNTER → 2021-07-14 09:36 | Outpatient (BNVA) | payer MEDICARE, MEDICAID, OTHER, SELFPAY | PROVIDERS: PCP Internal Medicine; Visit Provider Nurse Practitioner Psychiatric/Mental Health | DX: Z79.899 Other long term (current) drug therapy (principal); Z03.89 Encounter for observation for other suspected diseases and conditions ruled out; F31.81 Bipolar II disorder; F10.20 Alcohol dependence, uncomplicated; F50.01 Anorexia nervosa, restricting type; F43.12 Post-traumatic stress disorder, chronic; F12.20 Cannabis dependence, uncomplicated; F60.3 Borderline personality disorder | CPT/HCPCS: 80307; 99214 ==

== ENCOUNTER 2021-07-15 09:55 | Outpatient (CLI) | payer MEDICARE, MEDICAID, SELFPAY ==
[2021-07-15 10:32] LABS: Alanine Aminotransferase 18 U/L (0-33); Albumin Level 3.8 g/dL (3.5-5.2); Alkaline Phosphatase 146 IU/L (35-105); Anion Gap 13.9 (5-19); Aspartate Amino Transferase 30 U/L (0-32); Blood Urea Nitrogen 8 mg/dL (6-20); Calcium 9.4 mg/dL (8.5-10.5); Carbon Dioxide 21 mmol/L (22-29); Chloride 105 mmol/L (98-107); Chol HDL Ratio 2.52 mg/dL (0.0-4.40); Cholesterol 217 mg/dL (0-200); Globulin 2.7 g/dL (1.3-4.6); Glomerular Filtration Rate 128.6 mL/min (90-130); Glucose 195 mg/dL (65-115); HDL Cholesterol 86 mg/dL (60-100); LDL Cholesterol Calculated 120 mg/dL (50-129); Osmolality Calculated 286 mOsm/kg (285-295); Potassium 3.9 mmol/L (3.5-5.1); Sodium 136 mmol/L (136-145); Total Bilirubin 0.7 mg/dL (0.15-1.2); Total Protein 6.5 g/dL (6.6-8.7); Triglycerides 54 mg/dL (0-150)
[2021-07-15 10:33] LABS: Estmated Average Glucose 114; Hemoglobin A1C 5.6 % (4.0-6.0)
== END 2021-07-15 09:56 | disposition home or self-care (01) ==
LOC: LAB 09:58
PROVIDERS: PCP Internal Medicine; Visit Provider Nurse Practitioner Psychiatric/Mental Health
DX: Z79.899 Other long term (current) drug therapy (principal)
CPT/HCPCS: 36415; 80053; 80061; 83036

== ENCOUNTER 2021-07-29 18:02 | Emergency (ER) | payer MEDICARE, MEDICAID, SELFPAY ==
[2021-07-26 11:33] VITALS: BP 110/72; BMI 37.9
[2021-07-29 18:08] VITALS: BP 140/80; PULSE 79; RESP 20; TEMP 37; O2SAT 95; BMI 38.3
--- NOTE | 2021-07-29 19:19 | W.ED.EXTPRO ---
HPI - Extremity Problem General: Chief complaint: Extremity Injury, Lower Stated complaint: Hip Pain Time Seen by Provider: 07/29/21 18:21 History of Present Illness: Patient says she has had pain in her low back left hip down her left leg for a week week and a half. She says it hurts to get up out of bed and ambulate. She has a history of back problems. States she had spina bifida as a young child. Denies any other problems. Associated symptoms: Deny chest pain, fever(s) or rash Review of Systems Const: Denies: fever(s), chills or body aches Eyes: Denies: eye discomfort ENMT: Denies: throat pain Card: Denies: chest pain Resp: Denies: dyspnea GI: Denies: abdominal pain, nausea or vomiting Musc: Reports: back pain (Pain radiating down left side with movement.); Denies: joint stiffness or limited range of motion Skin/Breast: Denies: rash Neuro: Denies: headache(s) Psych: Denies: depression or suicidal ideation PFS ED PFSH: Medical History Alcohol use disorder, severe, dependence Anorexia nervosa, restricting type Bilateral primary osteoarthritis of hip Bipolar II disorder Cannabis dependence, continuous Chronic back pain Chronic post-traumatic stress disorder Congestive heart failure Diabetes mellitus H/O Belkys-Valenzuela syndrome (~07/2019) EGD at [facility]. EGD 10/26 negative. MONTANO (nonalcoholic steatohepatitis) Nicotine dependence, cigarettes, uncomplicated Psychiatric care Sacroiliitis Uncontrolled type 2 diabetes with neuropathy Surgical History H/O cervical spine surgery H/O colonoscopy History of esophagogastroduodenoscopy Family History Son Suicide September 2019 Other Cancer Hypertension Psychiatric illness Social History Smoking and tobacco status: current every day smoker cigarettes Packs smoked per day: 0.5 Years cigarettes smoked: 32 Quit status (tobacco): has tried quititng Alcohol intake: former Former alcohol use details: 8 days sober Adopted: No Caregiver/support person: Yes (cleans and runs errands) Lives independently: No Household members: significant other Housing: Apartment Marital status: Single Number of children: 2 Number of grandchildren: 0 Highest education level completed: Associate Degree: Occupational, Technical, Vocational Program Education level details: [employer] service: No Current occupational status: disabled Pets and animals: Yes Pets & animals: cat(s) History of recent travel: No Leisure activites: music and games Sexually active: Yes Current gender identity: Female Aparna/Scientologist: Caodaism Special aparna needs: No Agree to transfusion: Yes Financial difficulty paying for basics: Not Very Hard Female Reproductive History: Para: 2 Spontaneous abortions: Yes (10) Physical Exam Const: COMMON NORMALS: no acute distress, patient oriented x3 and alert HENMT: COMMON NORMALS: normocephalic HEAD & SCALP: normocephalic Eye: COMMON NORMALS: EOMs intact bilaterally Neck/C-Spine: COMMON NORMALS: no JVD Resp: COMMON NORMALS: normal respiratory effort and No use of accessory muscles Cardio: COMMON NORMALS: no JVD GI: INSPECTION: Yes normal to inspection Back/Pelvis: OTHER: Noticed to the left-sided back and down through the buttock with palpation sciatic nerve area. Is able stand. Neurovascular intact. Extremity: COMMON NORMALS: normal to inspection and full ROM Neuro: COMMON NORMALS: patient oriented x3 SENSORIUM/ORIENTATION: Yes alert Psych: COMMON NORMALS: mental status grossly normal Skin: COMMON NORMALS: no rashes or lesions noted GENERAL SKIN EXAM: no rashes or lesions noted Course Vital Signs: Vital signs: Vital Signs Temperature 98.6 F 07/29/21 18:08 Pulse Rate 79 07/29/21 18:08 Respiratory Rate 20 H 07/29/21 18:08 Blood Pressure 140/80 07/29/21 18:08 Pulse Oximetry 95 07/29/21 18:08 MDM - Extremity (Nontraumatic) Medical Decision Making Left-sided sciatica. Treat conservatively. Discharge Plan Discharge Patient Disposition: Home Clinical Impression: Sciatic pain Condition: Stable Prescriptions: New prednisone 20 mg tablet 20 mg PO DAILY Qty: 7 0RF cyclobenzaprine 5 mg tablet 5 mg PO TID PRN (Reason: muscle spasm) Qty: 10 0RF No Action nitroglycerin [Nitrostat] 0.4 mg tablet, sublingual 0.4 mg SUBLINGUAL Q5M PRN (Reason: Chest Pain) 0RF epinephrine 0.3 mg/0.3 mL auto-injector 0.3 mg IM Q10M PRN (Reason: Chest Pain) 0RF Rx Instructions: for 2 doses citalopram [Celexa] 20 mg tablet 20 mg PO .morning Qty: 30 1RF Rx Instructions: Take one tablet every morning quetiapine [Seroquel] 50 mg tablet 50 mg PO DIRECTED Qty: 90 1RF Rx Instructions: Take one tablet at 3 pm and two tabs at bedtime lamotrigine [Lamictal Starter ([place]) Kit] 25 mg (42) -100 mg (7) tablets,dose pack 1 ea PO PER PKG DIR Qty: 49 0RF Rx Instructions: Take as prescribed in starter pack trazodone 150 mg tablet 150 mg PO BEDTIME PRN (Reason: insomnia) Qty: 30 1RF Rx Instructions: May take half to one tab at bedtime as needed for sleep hydroxyzine pamoate [Vistaril] 50 mg capsule 50 mg PO BID PRN (Reason: anxiety) Qty: 60 3RF Rx Instructions: May take one capsule twice per day as needed for anxiety isosorbide mononitrate 30 mg tablet extended release 24 hr 30 mg PO DAILY Qty: 30 0RF aspirin 81 mg tablet,delayed release (DR/EC) 81 mg PO DAILY Qty: 30 0RF albuterol sulfate 90 mcg/actuation HFA aerosol inhaler 2 inh INHALATION Q4H PRN (Reason: shortness of breath or wheezing) Qty: 18 0RF Discharge Orders: Discharge ED (Routine); Ordered 07/29/21 Ordered By: Akhil Kang Referrals: Eber Garsia DO [Primary Care Provider] - Discharge Diet: Usual diet Discharge Activity: Increase activity as tolerated Patient Instructions: Sciatica (ED), Lower Back Exercises (ED) Activity Restrictions/Additional Instructions: Follow-up with medical provider as directed. Take medications as prescribed. Return to the ER or your medical provider if condition worsens. Please read and understand discharge instructions. If any questions ask please. Apply moist heat to the area to help with discomfort. Can see a chiropractor to see if that would help with discomfort. No heavy lifting x4 weeks. Coding Level of Care Code ED Lead Performance Support Analyst for Rober Arellano
== END 2021-07-29 19:27 | disposition home or self-care (01) ==
PROVIDERS: Emergency Provider Nurse Practitioner Family; PCP Internal Medicine
DX: M54.32 Sciatica, left side (principal); F17.210 Nicotine dependence, cigarettes, uncomplicated; Z79.82 Long term (current) use of aspirin; Z79.51 Long term (current) use of inhaled steroids
CPT/HCPCS: 99281

== ENCOUNTER → 2021-08-09 13:14 | Outpatient (BNVA) | payer MEDICARE, MEDICAID, OTHER, SELFPAY ==
[2021-07-26 11:33] VITALS: BP 110/72; BMI 37.9
== END ==
PROVIDERS: PCP Internal Medicine; Visit Provider Nurse Practitioner Psychiatric/Mental Health
DX: F31.81 Bipolar II disorder (principal); F43.12 Post-traumatic stress disorder, chronic; F50.01 Anorexia nervosa, restricting type; F12.20 Cannabis dependence, uncomplicated; F10.20 Alcohol dependence, uncomplicated; F60.3 Borderline personality disorder
CPT/HCPCS: 99214

== ENCOUNTER → 2021-09-12 10:25 | Outpatient (BNVA) | payer MEDICARE, MEDICAID, SELFPAY ==
[2021-07-26 11:33] VITALS: BP 110/72; BMI 37.9
== END ==
PROVIDERS: PCP Internal Medicine; Visit Provider Nurse Practitioner Psychiatric/Mental Health
DX: F31.81 Bipolar II disorder (principal); F10.20 Alcohol dependence, uncomplicated; F50.01 Anorexia nervosa, restricting type; F43.12 Post-traumatic stress disorder, chronic; F12.20 Cannabis dependence, uncomplicated; F60.3 Borderline personality disorder; Z79.899 Other long term (current) drug therapy; Z03.89 Encounter for observation for other suspected diseases and conditions ruled out
CPT/HCPCS: 99214

== ENCOUNTER 2021-10-04 10:33 | Inpatient (IN) | payer MEDICARE, MEDICAID, SELFPAY ==
[2021-07-26 11:33] VITALS: BP 110/72; BMI 37.9
[2021-10-04 10:36] VITALS: BP 142/64; PULSE 89; RESP 18; TEMP 36.6; O2SAT 98; BMI 36.3
--- NOTE | 2021-10-04 11:36 | W.ED.PSYCHS ---
HPI - Psych General: Chief Complaint: Psychiatric Symptoms Stated Complaint: SI Time Seen by Provider: 10/04/21 10:53 Source: patient and other (rehabilitation case coordinator) Mode of arrival: ambulatory Limitations: no limitations History of Present Illness: Patient is a 56-year-old female presents to ED today along with her adjunct communications faculty member for concerns of worsening depression and suicidal ideations. Patient states she struggles with debilitating back pain. In addition she is having family issues regarding her granddaughter. Patient states she has a longstanding history of depression. She states she has felt suicidal over the past several days with a plan to slit her wrists. She does have several previous suicide attempts. She states the knives are locked up in her home but she had a plan to break a window and use a piece of glass to slit her wrists. Patient is not homicidal. No hallucinations. MD complaint: suicidal ideation and feels depressed Onset (ago): day(s) Duration: constant History of same: Yes Context: significant life stressor Associated psychiatric symptoms: depression and suicidal ideation Associated symptoms: Reports depression and suicidal ideation; Deny auditory hallucinations, visual hallucinations or homicidal ideation Treatments prior to arrival: none If self harm: admits thoughts of self harm and has plan Review of Systems Const: Denies: fever(s) or chills Card: Denies: chest pain, palpitations, lightheadedness or syncope Resp: Denies: dyspnea GI: Denies: abdominal pain, nausea, vomiting or diarrhea Skin/Breast: Denies: rash Neuro: Denies: headache(s) Psych: Reports: anxiety, depression and suicidal ideation; Denies: visual hallucinations, auditory hallucinations or homicidal ideation [facility] ED PFSH: Medical History Alcohol use disorder, severe, dependence Anorexia nervosa, restricting type Bilateral primary osteoarthritis of hip Cannabis dependence, continuous Chronic back pain Chronic post-traumatic stress disorder Congestive heart failure Diabetes mellitus H/O Belkys-Valenzuela syndrome (~07/2019) EGD at [facility]. EGD 10/26 negative. MONTANO (nonalcoholic steatohepatitis) Nicotine dependence, cigarettes, uncomplicated Psychiatric care Sacroiliitis Uncontrolled type 2 diabetes with neuropathy Surgical History H/O cervical spine surgery H/O colonoscopy History of esophagogastroduodenoscopy Family History Son Suicide September 2019 Other Cancer Hypertension Psychiatric illness Social History Smoking and tobacco status: current every day smoker cigarettes Packs smoked per day: 0.5 Years cigarettes smoked: 32 Quit status (tobacco): has tried quititng Alcohol intake: former Former alcohol use details: 8 days sober Adopted: No Caregiver/support person: Yes (cleans and runs errands) Lives independently: No Household members: significant other Housing: Apartment Marital status: Single Number of children: 2 Number of grandchildren: 0 Highest education level completed: Associate Degree: Occupational, Technical, Vocational Program Education level details: [facility] [facility] service: No Current occupational status: disabled Pets and animals: Yes Pets & animals: cat(s) History of recent travel: No Leisure activites: music and games Sexually active: Yes Current gender identity: Female Aparna/Zoroastrianism: Congregational Special aparna needs: No Agree to transfusion: Yes Financial difficulty paying for basics: Not Very Hard Female Reproductive History: Para: 2 Spontaneous abortions: Yes (10) Physical Exam Const: COMMON NORMALS: patient oriented x3, no limitations and alert GENERAL APPEARANCE: cooperative and in distress (tearful at times) ORIENTATION/CONSCIOUSNESS: Yes awake, Yes oriented to person, Yes oriented to place and Yes oriented to time HENMT: COMMON NORMALS: normocephalic and atraumatic HEAD & SCALP: normal to inspection, normocephalic and atraumatic Resp: COMMON NORMALS: normal respiratory effort and clear to auscultation bilaterally AUSCULTATION: clear to auscultation bilaterally Cardio: COMMON NORMALS: regular rate and regular rhythm RATE: regular rate RHYTHM: regular rhythm Extremity: COMMON NORMALS: normal to inspection GENERAL: Yes normal exam except as noted Neuro: [place] COMA SCALE: document GCS findings [place] coma scale eye opening: Spontaneous [place] coma scale verbal response: Orientated [place] coma scale motor response: Obey commands K[place] coma scale total score: 15 COMMON NORMALS: patient oriented x3, moves all extremities, no focal motor deficits, no sensory deficits noted and gait normal SENSORIUM/ORIENTATION: Yes alert, Yes oriented to person, Yes oriented to place and Yes oriented to time Psych: COMMON NORMALS: mental status grossly normal, Normal thought process present, cooperative, speech normal, activity/motor behavior normal, denies hallucinations and denies homicidal ideation APPEARANCE: Yes grossly normal ATTITUDE: Yes calm ACTIVITY/MOTOR BEHAVIOR: Yes appropriate eye contact SPEECH: Yes normal speech MOOD & AFFECT: Yes tearful THOUGHT PROCESS: Normal thought process present THOUGHT CONTENT: Yes Normal thought content present ATTENTION/CONCENTRATION: Yes attention grossly intact and Yes concentration grossly intact MEMORY/COGNITION: Yes memory grossly intact and Yes cognition grossly intact INSIGHT: Good insight present (Psych) JUDGEMENT: Good judgement present (Psych) Course Consultations: Consultation #1: Dr. Archibald-accepts to NPU Vital Signs: Vital signs: Vital Signs Temperature 97.9 F 10/04/21 10:36 Pulse Rate 89 10/04/21 10:36 Respiratory Rate 18 10/04/21 10:36 Blood Pressure 142/64 10/04/21 10:36 Pulse Oximetry 98 10/04/21 10:36 MDM - Psych Medical Decision Making Patient will be a voluntary with affidavit admit to NPU to Dr. Archibald. Lab Data : 10/04/21 11:49 10/04/21 11:49 Laboratory Results WBC 4.0 10^3/uL (4.0-10.0) 10/04/21 11:49 RBC 4.19 10^6/uL (4.1-5.3) 10/04/21 11:49 Hgb 13.0 g/dL (11.5-15.3) 10/04/21 11:49 Hct 36.5 % (37.0-47.0) L 10/04/21 11:49 MCV 87.1 fl (81-99) 10/04/21 11:49 MCH 31.0 pg (28.0-34.0) 10/04/21 11:49 MCHC 35.6 g/dL (30.0-36.0) 10/04/21 11:49 RDW 13.0 % (12.1-15.1) 10/04/21 11:49 Plt Count 76 10^3/cmm (130-400) L 10/04/21 11:49 MPV 9.0 fL (7.4-10.4) 10/04/21 11:49 Neut % (Auto) 65.8 % 10/04/21 11:49 Lymph % (Auto) 23.0 % 10/04/21 11:49 [place] % (Auto) 7.7 % 10/04/21 11:49 Eos % (Auto) 3.0 % 10/04/21 11:49 Baso % (Auto) 0.5 % 10/04/21 11:49 Neut # (Auto) 2.66 10^3/uL (1.8-7.7) 10/04/21 11:49 Lymph # (Auto) 0.9 10^3/uL (0.8-4.8) 10/04/21 11:49 [place] # (Auto) 0.3 10^3/uL (0.2-0.9) 10/04/21 11:49 Eos # (Auto) 0.1 10^3/uL (0.0-0.8) 10/04/21 11:49 Baso # (Auto) 0.0 10^3/uL (0.0-0.1) 10/04/21 11:49 Nucleated RBC % (auto) 0 % 10/04/21 11:49 Nucleated RBCs # 0.0 /100WBC 10/04/21 11:49 Sodium 141 mmol/L (136-145) 10/04/21 11:49 Potassium 3.7 mmol/L (3.5-5.1) 10/04/21 11:49 Chloride 106 mmol/L (98-107) 10/04/21 11:49 Carbon Dioxide 23 mmol/L (22-29) 10/04/21 11:49 Anion Gap 15.7 (5-19) 10/04/21 11:49 BUN 5 mg/dL (6-20) L 10/04/21 11:49 Creatinine 0.4 mg/dL (0.5-0.9) L 10/04/21 11:49 GFR Calculation 166.3 mL/min (90-130) H 10/04/21 11:49 Glucose 88 mg/dL (65-115) 10/04/21 11:49 Calculated Osmolality 289 mOsm/kg (285-295) 10/04/21 11:49 Calcium 9.0 mg/dL (8.5-10.5) 10/04/21 11:49 Total Bilirubin 0.9 mg/dL (0.15-1.2) 10/04/21 11:49 AST 32 U/L (0-32) 10/04/21 11:49 ALT 20 U/L (0-33) 10/04/21 11:49 Alkaline Phosphatase 148 IU/L (35-105) H 10/04/21 11:49 Total Protein 6.2 g/dL (6.6-8.7) L 10/04/21 11:49 Albumin 3.8 g/dL (3.5-5.2) 10/04/21 11:49 Globulin 2.4 g/dL (1.3-4.6) 10/04/21 11:49 Salicylates < 0.3 mg/dL (3-10) L 10/04/21 11:49 Acetaminophen < 5.0 ug/mL (10-30) L 10/04/21 11:49 Ethyl Alcohol 48 mg/dL (0-10) H 10/04/21 11:49 Discharge Plan Discharge Patient Disposition: Admitted As Inpatient Clinical Impression: Suicidal ideation, Depression Condition: Stable Prescriptions: No Action nitroglycerin [Nitrostat] 0.4 mg tablet, sublingual 0.4 mg SUBLINGUAL Q5M PRN (Reason: Chest Pain) 0RF epinephrine 0.3 mg/0.3 mL auto-injector 0.3 mg IM Q10M PRN (Reason: Chest Pain) 0RF Rx Instructions: for 2 doses lamotrigine [Lamictal] 150 mg tablet 150 mg PO BEDTIME Qty: 30 2RF Rx Instructions: Take one tablet at bedtime trazodone 150 mg tablet 150 mg PO BEDTIME PRN (Reason: insomnia) Qty: 30 3RF Rx Instructions: May take half to one tab at bedtime as needed for sleep cyclobenzaprine 10 mg tablet 10 mg PO TID PRN (Reason: Muscle Spasm) 0RF Rx Instructions: Take one tablet three times per day x 5 days Prescribed on 09/09/21 quetiapine [Seroquel] 50 mg tablet 50 mg PO DIRECTED Qty: 90 1RF Rx Instructions: Take one tablet at 3 pm and two tabs at bedtime hydroxyzine pamoate [Vistaril] 50 mg capsule 50 mg PO BID PRN (Reason: anxiety) Qty: 60 3RF Rx Instructions: May take one capsule twice per day as needed for anxiety albuterol sulfate 90 mcg/actuation HFA aerosol inhaler 2 inh INHALATION Q4H PRN (Reason: shortness of breath or wheezing) Qty: 18 0RF Celexa 20 mg tablet 20 mg PO DAILY 0RF Rx Instructions: Take one tablet every morning Referrals: Eber Garsia DO [Primary Care Provider] - Coding Level of Care Code ED Dielectric Testing Machine Operator for Chg Fwd Exam Detailed
[2021-10-04 11:58] LABS: Basophils % 0.5 %; Eosinophils # 0.1 10^3/uL (0.0-0.8); Hematocrit 36.5 % (37.0-47.0); Lymphocytes # 0.9 10^3/uL (0.8-4.8); Mean Corpuscular HGB Conc 35.6 g/dL (30.0-36.0); Mean Corpuscular Volume 87.1 fl (81-99); Monocytes # 0.3 10^3/uL (0.2-0.9); Monocytes % 7.7 %; Neutrophils # 2.66 10^3/uL (1.8-7.7); Neutrophils % 65.8 %; Nucleated Red Blood Cells % 0 %; Platelet Count 76 10^3/cmm (130-400); Red Blood Count 4.19 10^6/uL (4.1-5.3)
[2021-10-04] MEDS: LORazepam 1 mg Tablet PO (12:08)
[2021-10-04 12:19] LABS: Alanine Aminotransferase 20 U/L (0-33); Albumin Level 3.8 g/dL (3.5-5.2); Alcohol Level 48 mg/dL (0-10); Alkaline Phosphatase 148 IU/L (35-105); Anion Gap 15.7 (5-19); Aspartate Amino Transferase 32 U/L (0-32); Blood Urea Nitrogen 5 mg/dL (6-20); Carbon Dioxide 23 mmol/L (22-29); Chloride 106 mmol/L (98-107); Globulin 2.4 g/dL (1.3-4.6); Glomerular Filtration Rate 166.3 mL/min (90-130); Glucose 88 mg/dL (65-115); Osmolality Calculated 289 mOsm/kg (285-295); Potassium 3.7 mmol/L (3.5-5.1); Sodium 141 mmol/L (136-145); Total Bilirubin 0.9 mg/dL (0.15-1.2); Total Protein 6.2 g/dL (6.6-8.7)
[2021-10-04 12:20] LABS: Acetaminophen < 5.0 ug/mL (10-30); Salicylate < 0.3 mg/dL (3-10)
[2021-10-04 13:40] LABS: Amphetamines Screen Urine Negative (Negative); Barbiturates Screen Urine Negative (Negative); Benzodiazepines Screen Urine Negative (Negative); Cocaine Screen Urine Negative (Negative); Opiate Screen Urine Negative (Negative); PCP Screen Urine Negative (Negative); THC Screen Urine Positive (Negative)
[2021-10-04 14:26] VITALS: BP 133/60; PULSE 80; RESP 16; O2SAT 98
[2021-10-04 15:33] VITALS: BP 121/83; PULSE 80; RESP 17; TEMP 36.6; O2SAT 97
[2021-10-04 20:47] VITALS: BP 124/77; PULSE 92; RESP 20; TEMP 37.1; O2SAT 100
[2021-10-04] MEDS: hyDROXYzine 25 mg Capsule 50 MG PO (21:19)
[2021-10-04] MEDS: trazodone 50 mg Tablet PO (21:19)
[2021-10-05] MEDS: cyclobenzaprine 10 mg Tablet PO ×3 (01:15→18:31)
[2021-10-05] MEDS: trazodone 150 mg Tablet PO ×2 (01:15→20:33)
[2021-10-05 06:00] VITALS: BP 114/74; PULSE 86; RESP 16; TEMP 37.2; O2SAT 99
[2021-10-05] MEDS: nicotine 4 mg lozenge MUCOUS MEM (06:12)
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
[2021-10-05] MEDS: citalopram 20 mg Tablet PO (08:48)
[2021-10-05] MEDS: hyDROXYzine 25 mg Capsule 50 MG PO (10:06)
[2021-10-05 14:00] VITALS: BP 114/74; PULSE 83; RESP 18; TEMP 37.2; O2SAT 98
[2021-10-05] MEDS: OLANZapine 5 mg ODT PO ×2 (14:42→20:30)
--- NOTE | 2021-10-05 14:46 | PC.NURSE ---
Pt.c/o nervousness. Zyprexa Zydis 5 mg p.o given.Will mmonitor for drug effectiveness.
[2021-10-05 17:05] VITALS: PULSE 83; RESP 18; O2SAT 98
[2021-10-05] MEDS: duloxetine 20 mg Capsule PO (17:42)
[2021-10-05] MEDS: nicotine 21 mg Patch 1 PATCH TRANSDERMA (17:49)
[2021-10-05] MEDS: acetaminophen 325 mg Tablet 650 MG PO (19:11)
[2021-10-05] MEDS: lamoTRIgine 100 mg Tablet 150 MG PO (20:30)
[2021-10-05] MEDS: quetiapine 25 mg Tablet 50 MG PO (20:30)
[2021-10-05 20:32] VITALS: BP 135/92; PULSE 87; RESP 20; TEMP 36.8; O2SAT 98
--- NOTE | 2021-10-05 21:54 | PC.NURSE ---
PRN PT REPEATEDLY ASK NURSING STAFF FOR STRONGER PAIN MEDICATION OTHER THAN TYLENOL. THIS NURSE LET PT KNOW WE HAD NO OTHER ORDERS AT THIS TIME FOR STRONGER MEDICATION, PT DOES HAVE A ORDER FOR FLEXERIL BUT THIS WAS GIVEN RIGHT BEFORE SHIFT CHANGE AROUND 1829 AND IT WAS TO SOON TO BE GIVEN AGAIN. PT VERBALIZED UNDERSTANDING. PT RECEIVED OLANZAPINE FOR ANXIETY.
[2021-10-05] MEDS: TRAMadol 50 mg Tablet PO (23:41)
[2021-10-06] MEDS: cyclobenzaprine 10 mg Tablet PO ×3 (02:35→13:49)
[2021-10-06 06:00] VITALS: BP 126/78; PULSE 100; RESP 20; TEMP 36.6; O2SAT 99
[2021-10-06] MEDS: duloxetine 20 mg Capsule PO ×2 (08:46→18:21)
[2021-10-06] MEDS: citalopram 20 mg Tablet PO (08:46)
[2021-10-06] MEDS: TRAMadol 50 mg Tablet PO ×2 (08:46→18:21)
[2021-10-06] MEDS: hyDROXYzine 25 mg Capsule 50 MG PO ×2 (08:47→12:06)
--- NOTE | 2021-10-06 09:50 | PC.NURSE ---
PT STATES I HAVE A RASH OR HIVES ON MY LEFT KNEE. THIS RN WENT TO ASSESS AND VISUALIZED ONE LIGHT RED SPOT THAT APPEARED TO BE A BRUISE. NO RAISED RASH OR HIVES WERE NOTED. PT CONTINUES TO BE SOMATIC REPORTING MULTIPLE ISSUES. SUPPORT VOICED
[2021-10-06] MEDS: OLANZapine 5 mg ODT PO (10:53)
[2021-10-06] MEDS: haloperidol 5 mg Tablet PO (13:37)
[2021-10-06 14:00] VITALS: BP 140/82; PULSE 95; RESP 18; TEMP 36.9; O2SAT 98
--- NOTE | 2021-10-06 18:18 | P.NPUPN_ITS ---
Subjective NPU Subjective: Patient presents today reporting that she is feeling a little bit better. She reports that today is the first day that she has not felt frankly suicidal. She continues to struggle with the pain issues which we discussed her having to work to have some definitive treatments to get out of his hopeless mindset. We discussed the possibility of discharge in the next 48 hours. Mental Status Exam MSE Comments: This is an obese, white female in the hospital scrubs using a rolling walker with some slight imbalance in her gait with limited grooming and eye contact. No abnormal movements, except for mild psychomotor retardation and a gait issues.? Cooperative with exam in mild distress. Speech was more normal rate and volume. Mood described as a little better; affect congruent. Thought process, organized. Thought content: patient endorsed suicidal but denied homicidal ideation, there were no delusions reported or noted, patient denied any auditory or visual hallucinations. Attention and concentration, appeared intact and memory was more reliable but none were formally tested. She is alert and oriented times three. Insight and judgment are improving. Impulse control is limited. Vitals/I&O/Wt Last Vital Signs Temp 98 F 10/06/21 21:00 Pulse 79 10/06/21 21:00 Resp 20 H 10/06/21 21:00 BP 128/70 10/06/21 21:00 Pulse Ox 96 10/06/21 21:00 Data NPU : 10/04/21 11:49 10/04/21 11:49 A&P Assessment and plan (1) Alcohol use disorder, severe, in sustained remission: Status: Acute (2) Suicidal ideation: Status: Acute (3) Depression: Status: Acute (4) Cannabis dependence, continuous: Status: Chronic (5) Nicotine dependence, cigarettes, uncomplicated: Status: Chronic (6) Chronic post-traumatic stress disorder: Status: Chronic (7) Borderline personality disorder: Status: Chronic Plan This is a 56-year-old white female with a long history of mental health issues including depression, PTSD and borderline personality disorder who presents to the hospital with reports of extreme pain and suicidal thoughts secondary to not being able to manage his pain with a long history of suicide attempts open to medication changes. 1.? Continue current medication.? We will consider increasing Celexa to 30 versus 40 mg and/or switching to Lexapro. Started Cymbalta 20 mg p.o. twice daily likely increase it to 30 mg prior to discharge. 2.? Continue every 15 minute checks for safety. 3.? Encourage individual, group and milieu therapies. 4.? We will work with her outpatient provider to see if there is anything we can facilitate from the standpoint of her pain management and back issues. Involuntary Hold Information 96 Hour Hold: 96 Hour Involuntary Admission: No Attestations NPU Medical Necessity Statement*: Inpatient hospitalization is medically necessary and the clinically appropriate intervention at this time. We will monitor medication to make changes as indicated. Likely length of stay 1-3 days. Coding Level of Care Code Acute [employer] [facility] Diagnoses Alcohol use disorder, severe, in sustained remission F10.21 Suicidal ideation R45.851 Depression F32.A Cannabis dependence, continuous F12.20 Nicotine dependence, cigarettes, uncomplicated F17.210 Chronic post-traumatic stress disorder F43.12 Borderline personality disorder F60.3
[2021-10-06] MEDS: trazodone 150 mg Tablet PO (20:37)
[2021-10-06] MEDS: lamoTRIgine 100 mg Tablet 150 MG PO (20:37)
[2021-10-06] MEDS: quetiapine 25 mg Tablet 50 MG PO (20:37)
[2021-10-06 21:00] VITALS: BP 128/70; PULSE 79; RESP 20; TEMP 36.6; O2SAT 96
[2021-10-07] MEDS: cyclobenzaprine 10 mg Tablet PO ×2 (02:19→11:32)
[2021-10-07 06:00] VITALS: BP 106/67; PULSE 82; RESP 20; TEMP 36.1; O2SAT 95
[2021-10-07] MEDS: nicotine 2 mg Gum BUCCAL (06:59)
[2021-10-07] MEDS: TRAMadol 50 mg Tablet PO (08:30)
[2021-10-07] MEDS: duloxetine 20 mg Capsule PO (08:31)
[2021-10-07] MEDS: citalopram 20 mg Tablet PO (08:31)
[2021-10-07] MEDS: nicotine 21 mg Patch 1 PATCH TRANSDERMA (08:33)
[2021-10-07 10:39] VITALS: PULSE 74; RESP 17; O2SAT 97
--- NOTE | 2021-10-07 11:03 | PC.NURSE ---
Pt up at the desk complaining of low back pain and hip pain. Pt states that she needs a stronger pain med.
--- NOTE | 2021-10-07 12:14 | DCPLANNER ---
IMM completed with pt on 10/07/21 @ 1550. Pt was given a copy of rights and stated she understood her rights.
[2021-10-07] MEDS: hyDROXYzine 25 mg Capsule 50 MG PO (13:05)
[2021-10-07 13:28] VITALS: BP 132/73; PULSE 87; RESP 17; O2SAT 96
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
[2021-10-07 14:43] VITALS: BP 132/73; PULSE 87; RESP 17; O2SAT 96
== END 2021-10-07 15:00 | disposition home or self-care (01) | DRG 881 ==
LOC: ER 13:05 → NP 14:03
PROVIDERS: Family Medicine; Admitting Provider Psychiatry & Neurology Psychiatry; Emergency Provider Physician Assistant; PCP Internal Medicine; Visit Provider Psychiatry & Neurology Psychiatry
DX: F32.A Depression, unspecified (principal); R45.851 Suicidal ideations; F10.20 Alcohol dependence, uncomplicated; M16.0 Bilateral primary osteoarthritis of hip; F12.20 Cannabis dependence, uncomplicated; G89.29 Other chronic pain; M54.9 Dorsalgia, unspecified; F43.12 Post-traumatic stress disorder, chronic; E11.42 Type 2 diabetes mellitus with diabetic polyneuropathy; F17.210 Nicotine dependence, cigarettes, uncomplicated; F60.3 Borderline personality disorder; Z79.891 Long term (current) use of opiate analgesic
CPT/HCPCS: 80053; 80306; 80307; 85025; 97110; 97150; 97161; 97165; 99285

== ENCOUNTER 2021-10-12 11:39 | Outpatient (CLI) | payer MEDICARE, MEDICAID, SELFPAY ==
[2021-07-26 11:33] VITALS: BP 110/72; BMI 37.9
--- NOTE | 2021-10-12 11:49 | XR_ITS ---
WS: [id number] Lumbar spine, 3 views, 10/12/2021 Clinical Data: LEFT SCIATICA/LUMBOSACRAL VERTEBRA TRANSITIONAL Comparison: Lumbar spine, 08/08/2021. Findings: No compression fractures are seen. There is degenerative disc narrowing at L5-S1. There is a minimal retrolisthesis of 0.3 cm of L3 on L4. The transverse processes and SI joints are normal. There is minimal osteoarthritis of the lower thoracic vertebral bodies and the lumbar vertebral madhu s. There is facet joint arthritis at L4-L5 and L5-S1. There are clips in the right upper quadrant fro m a cholecystectomy. There is a large amount of fecal material in the colon. XR/XR lumbar spine 2-3V* [id number] Impression: 1. Degenerative disc narrowing at L5-S1. 2. Minimal retrolisthesis at L3-L4. 2. Minimal osteoarthritis of the lumbar vertebral bodies.
== END 2021-10-12 11:40 | disposition home or self-care (01) ==
LOC: RAD 11:41
PROVIDERS: PCP Internal Medicine; Visit Provider Family Medicine
DX: M54.32 Sciatica, left side (principal); Q76.49 Other congenital malformations of spine, not associated with scoliosis
CPT/HCPCS: 72100

== ENCOUNTER 2021-10-20 10:44 | Outpatient (CLI) | payer MEDICARE, MEDICAID, SELFPAY ==
[2021-07-26 11:33] VITALS: BP 110/72; BMI 37.9
--- NOTE | 2021-10-20 10:52 | MR_ITS ---
WS: [id number] MRI LUMBAR SPINE NONCONTRAST TECHNIQUE: Sagittal T1, T2 and STIR imaging. Axial T1 and T2 imaging. CLINICAL INFORMATION: LOWER EXTREMITY PERIPHERAL NEUROPATHY/L SCIATICA COMPARISON: MRI May 13, 2019 FINDINGS: Mild lumbar curve. No acute compression. No high-grade central canal stenosis. Central disc protrusio n L4-L5 similar to previous. T12-L1: Tiny shallow central protrusion. Mild LEFT foraminal narrowing. Spinal canal is patent. L1-L2: Mild facet arthropathy. Spinal canal and foramen are patent. L2-L3: Small LEFT foraminal protrusion. Mild LEFT foraminal narrowing. Slight impingement on traversi ng LEFT L3 nerve root. RIGHT foramen is patent. Mild facet arthropathy. L3-L4: Mild annular bulging. Mild facet arthropathy. Small LEFT foraminal protrusion with moderate LE FT foraminal narrowing. Contact of the exiting LEFT L3 nerve root. Mild facet arthropathy. RIGHT fora men is patent. L4-L5: Shallow central disc protrusion impinges the traversing L5 nerve roots bilaterally. Moderate c entral canal stenosis. Moderate to advanced facet arthropathy with ligamentum flavum hypertrophy. Sm all facet effusions. Moderate RIGHT and mild LEFT bony foraminal narrowing. L5-S1: L5 is partially sacralized. Spinal canal and foramen are patent. Moderate facet arthropathy. Small amount of edema at the distal sacrum/sacrococcygeal junction suspicious for fracture. Associate d fracture lines visualized in this area. Small amount surrounding soft tissue edema. Recommend corre lation for recent trauma. MR/MR lumbar spine wo con* [id number] IMPRESSION: 1. Suspected nondisplaced fracture of the sacrococcygeal junction with edema a nd visualized fracture lines. This is new since the prior MRI.Correlation for s acrococcygeal pain. 2. Central disc protrusion L4-L5 with moderate central canal stenosis appears slightly progressed compared to previous. Impingement traversing L5 nerve roots bilaterally with crowding of the cauda equina nerve rootlets. Moderate RIGHT a nd mild LEFT foraminal narrowing at this level. 3. LEFT foraminal protrusion L3-L4 is unchanged and contacts the exiting LEFT L3 nerve root with moderate LEFT foraminal narrowing. 4. Small LEFT foraminal protrusion L2-L3 slightly impinges the exiting LEFT L2 nerve root. In addition, impingement traversing LEFT L3 nerve root in the suba rticular recess at this level. This appears slightly progressed compared to pre vious. 5. Advanced facet arthropathy L4-L5.
== END 2021-10-20 10:45 | disposition home or self-care (01) ==
LOC: RAD 10:46
PROVIDERS: PCP Internal Medicine; Visit Provider Family Medicine
DX: M51.26 Other intervertebral disc displacement, lumbar region (principal); M43.10 Spondylolisthesis, site unspecified
CPT/HCPCS: 72120; 72148; 99203; 99204

== ENCOUNTER 2021-10-26 10:52 | Emergency (ER) | payer MEDICARE, MEDICAID, SELFPAY ==
[2021-07-26 11:33] VITALS: BP 110/72; BMI 37.9
--- NOTE | 2021-10-26 11:07 | XRR_ITS ---
PROCEDURE INFORMATION: Exam: XR Right Wrist Exam date and time: 10/26/2021 11:27 AM Age: 56 years old Clinical indication: Injury or trauma; Fall; Blunt trauma (contusions or hematomas); Wrist; Right; Injury date: 10/26/21; Additional info: Fall injury TECHNIQUE: Imaging protocol: Radiologic exam of the Right wrist. Views: 3 or more views. COMPARISON: No relevant prior studies available. FINDINGS: Bones/joints: Normal. Soft tissues: Normal. XR/XR wrist RT min 3V* [id number] IMPRESSION: No acute findings.
--- NOTE | 2021-10-26 11:07 | XRR_ITS ---
PROCEDURE INFORMATION: Exam: XR Left Wrist Exam date and time: 10/26/2021 11:27 AM Age: 56 years old Clinical indication: Injury or trauma; Fall; Blunt trauma (contusions or hematomas); Wrist; Left; Injury date: 10/26/21; Additional info: Fall injury TECHNIQUE: Imaging protocol: Radiologic exam of the Left wrist. Views: 3 or more views. COMPARISON: CR Hand 3 views, LEFT* 04/30/2017 11:08 AM FINDINGS: Bones/joints: Normal. Soft tissues: Normal. XR/XR wrist LT min 3V* [id number] IMPRESSION: No acute findings.
[2021-10-26 11:16] VITALS: BP 106/65; PULSE 85; RESP 18; TEMP 36.6; O2SAT 97; BMI 40.4
--- NOTE | 2021-10-26 11:23 | CT_ITS ---
WS: [id number] CT HEAD TECHNIQUE: Noncontrast CT of the head obtained from the skullbase to the vertex. CLINICAL INFORMATION: fall yesterday and hit head, +LOC COMPARISON: None. DLP: 1117.[address] scans at [facility] use at least one of these dose optimization techniques: automated e xposure control; mA and/or kV adjustment per patient size (includes targeted exams where dose is matc hed to clinical indication); or iterative reconstruction. FINDINGS: No evidence of intracranial hemorrhage or mass effect. Ventricular system and basal cisterns are cha nt. Mild small vessel changes with mild parenchymal volume loss. No extra-axial fluid collections. No evidence of mass or mass effect. Paranasal sinuses and mastoid air cells are well aerated. Scalp edema overlying the RIGHT inferior fr ontal calvarium. No visualized fractures. CT/CT head wo con* [id number] IMPRESSION: 1. No evidence of intracranial hemorrhage or mass effect. 2. Scalp edema overlying the RIGHT inferior frontal calvarium. No visualized f ractures. 3. No acute intracranial findings.
--- NOTE | 2021-10-26 11:26 | XRR_ITS ---
PROCEDURE INFORMATION: Exam: XR Right Forearm Exam date and time: 10/26/2021 11:33 AM Age: 56 years old Clinical indication: Injury or trauma; Fall; Blunt trauma (contusions or hematomas); Arm, lower; Right; Additional info: Fall injury TECHNIQUE: Imaging protocol: Radiologic exam of the Right forearm. Views: 2 views. COMPARISON: CR XR wrist RT min 3V* [id number] 10/26/2021 11:27 AM FINDINGS: Bones/joints: Normal. Soft tissues: Normal. XR/XR forearm RT 2V [id number] IMPRESSION: No acute findings.
--- NOTE | 2021-10-26 12:27 | ED_ITS ---
HPI - Fall General: Chief Complaint: Fall Stated Complaint: fall both Wrist injury Time Seen by Provider: 10/26/21 12:22 History of Present Illness: Patient is a 56-year-old female comes to the ED after fall. Patient uses a walker to help with ambulation has a history of chronic back problems. Fall occurred this morning and she says she tripped over her walker. She fell forward and her head hit the ground. She endorses loss of consciousness. came home and found patient alert on the ground and helped her get up. Her main complaint is right wrist and forearm pain. She has a contusion above her right eye. Associated symptoms-after fall: Denies abdominal pain, chest pain, headache(s), hematuria or neck pain Review of Systems Const: Denies: fever(s), chills or fatigue Eyes: Denies: change in vision or eye discomfort ENMT: Denies: throat pain, odynophagia, nasal discharge or nasal congestion Card: Denies: chest pain, palpitations, edema, swelling of feet/ankles, dyspnea on exertion or orthopnea Resp: Denies: dyspnea, productive cough or non-productive cough GI: Denies: abdominal pain, nausea, vomiting, diarrhea, constipation or hematochezia : Denies: flank pain, dysuria or hematuria Musc: Reports: extremity pain (right wrist and right forearm); Denies: neck pain, back pain or extremity swelling Skin/Breast: Denies: rash or new lesions Neuro: Reports: other (HitFall head with positive loss of consciousness); Denies: headache(s), numbness in extremities or weakness in extremities [facility] ED PFSH: Medical History Alcohol use disorder, severe, dependence Anorexia nervosa, restricting type Bilateral primary osteoarthritis of hip Cannabis dependence, continuous Chronic back pain Chronic post-traumatic stress disorder Congestive heart failure Diabetes mellitus H/O Belkys-Valenzuela syndrome (~07/2019) EGD at [facility]. EGD 10/26 negative. MONTANO (nonalcoholic steatohepatitis) Nicotine dependence, cigarettes, uncomplicated Psychiatric care Sacroiliitis Uncontrolled type 2 diabetes with neuropathy Surgical History H/O cervical spine surgery H/O colonoscopy History of esophagogastroduodenoscopy Family History Son Suicide September 2019 Other Cancer Hypertension Psychiatric illness Social History Smoking and tobacco status: current every day smoker cigarettes Packs smoked per day: 0.5 Years cigarettes smoked: 32 Quit status (tobacco): has tried quititng Alcohol intake: former Former alcohol use details: 8 days sober Adopted: No Caregiver/support person: Yes (cleans and runs errands) Lives independently: No Household members: significant other Housing: Apartment Marital status: Single Number of children: 2 Number of grandchildren: 0 Highest education level completed: Associate Degree: Occupational, Technical, Vocational Program 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 service: No Current occupational status: disabled Pets and animals: Yes Pets & animals: cat(s) History of recent travel: No Leisure activites: music and games Sexually active: Yes Current gender identity: Female Aparna/Sikh: Sabianist Special aparna needs: No Agree to transfusion: Yes Financial difficulty paying for basics: Not Very Hard Female Reproductive History: Date of last menstrual period: 04/09/98 Para: 2 Spontaneous abortions: Yes (10) Physical Exam Const: COMMON NORMALS: patient oriented x3 and alert GENERAL APPEARANCE: cooperative HENMT: COMMON NORMALS: normocephalic HEAD & SCALP: normocephalic FACE & SINUS: ecchymosis on the right forehead (Right forehead just above the eye) MOUTH: Normal oral and palatal mucosa present THROAT: posterior oropharynx normal and uvula midline Neck/C-Spine: COMMON NORMALS: supple GENERAL: Yes normal visual inspection Resp: COMMON NORMALS: normal respiratory effort, No retractions, No use of accessory muscles and clear to auscultation bilaterally AUSCULTATION: clear to auscultation bilaterally Cardio: COMMON NORMALS: regular rate, regular rhythm, S1 normal heart sound present, S2 normal heart sound present, No gallops present (Cardio), No clicks present (Cardio), No murmurs present (Cardio) and Peripheral pulses 2+ throughout RATE: regular rate RHYTHM: regular rhythm HEART SOUNDS: S1 normal heart sound present and S2 normal heart sound present PERIPHERAL PULSES: Peripheral pulses 2+ throughout GI: COMMON NORMALS: Normal to inspection, nondistended, normoactive bowel sounds present, Soft to palpation, non-tender and no masses PALPATION: Yes Soft to palpation : COMMON NORMALS: Yes no CVA tenderness BLADDER/KIDNEY EXAM: Yes no CVA tenderness Back/Pelvis: COMMON NORMALS: no CVA tenderness Extremity: NARRATIVE EXTREMITY EXAM: Right wrist and forearm?swelling and ecchymosis noted. Tenderness to palpation of the radial and ulnar aspect of wrist. Limited range of motion due to pain. Neurovascular intact. GENERAL: Yes normal exam except as noted Neuro: COMMON NORMALS: patient oriented x3, CN's II-XII intact bilaterally, moves all extremities, no focal motor deficits and no sensory deficits noted SENSORIUM/ORIENTATION: Yes alert SENSORY EXAM: Yes extremities (intact) MOTOR EXAM: 5/5 motor strength present throughout Skin: GENERAL SKIN EXAM: dry skin Course Vital Signs: Vital signs: Vital Signs Temperature 98 F 10/26/21 11:16 Pulse Rate 85 10/26/21 11:16 Respiratory Rate 18 10/26/21 11:16 Blood Pressure 106/65 10/26/21 11:16 Pulse Oximetry 97 10/26/21 11:16 MDM - Fall Medical Decision Making Patient is a 56-year-old female comes to the ED after fall. Patient uses a walker to help with ambulation has a history of chronic back problems. Fall occurred this morning and she says she tripped over her walker. She fell forward and her head hit the ground. She endorses loss of consciousness. Denies any neuro symptoms. She endorses some bilateral wrist pain but says her right wrist and forearm hurts the most.. Vitals are stable. Patient has some right wrist tenderness, swelling and ecchymosis. Neuro exam is benign. She does have a small contusion to her right forehead. CT of head shows no acute findings. Wrist and forearm x-rays were clear and showed no acute fractures. Patient was stable for discharge home and diagnosed with minor head trauma with loss of consciousness and dry right wrist. She was put in a Velcro wrist splint. She is told to follow-up with her PCP in the next week for reevaluatio n. Return to ED precautions given. Patient understood and agreed with plan. Lab Data Radiology Impressions Wrist X-Ray 10/26/21 11:07 IMPRESSION: No acute findings. Head CT 10/26/21 11:23 IMPRESSION: 1. No evidence of intracranial hemorrhage or mass effect. 2. Scalp edema overlying the RIGHT inferior frontal calvarium. No visualized fractures. 3. No acute intracranial findings. Forearm X-Ray 10/26/21 11:26 IMPRESSION: No acute findings. Discharge Plan Discharge Patient Disposition: Home Clinical Impression: Minor head injury with loss of consciousness, Injury of wrist, right Condition: Stable Prescriptions: No Action nitroglycerin [Nitrostat] 0.4 mg tablet, sublingual 0.4 mg SUBLINGUAL Q5M PRN (Reason: Chest Pain) 0RF epinephrine 0.3 mg/0.3 mL auto-injector 0.3 mg IM Q10M PRN (Reason: Chest Pain) 0RF Rx Instructions: for 2 doses lamotrigine [Lamictal] 150 mg tablet 150 mg PO BEDTIME Qty: 30 2RF Rx Instructions: Take one tablet at bedtime trazodone 150 mg tablet 150 mg PO BEDTIME PRN (Reason: insomnia) Qty: 30 3RF Rx Instructions: May take half to one tab at bedtime as needed for sleep cyclobenzaprine 10 mg tablet 10 mg PO TID PRN (Reason: Muscle Spasm) 0RF Rx Instructions: Take one tablet three times per day x 5 days Prescribed on 09/09/21 quetiapine [Seroquel] 50 mg tablet 50 mg PO DIRECTED Qty: 90 1RF Rx Instructions: Take one tablet at 3 pm and two tabs at bedtime hydroxyzine pamoate [Vistaril] 50 mg capsule 50 mg PO BID PRN (Reason: anxiety) Qty: 60 3RF Rx Instructions: May take one capsule twice per day as needed for anxiety albuterol sulfate 90 mcg/actuation HFA aerosol inhaler 2 inh INHALATION Q4H PRN (Reason: shortness of breath or wheezing) Qty: 18 0 RF Celexa 20 mg tablet 20 mg PO DAILY 0RF Rx Instructions: Take one tablet every morning tramadol 50 mg Tablet 50 mg PO BID PRN (Reason: Moderate Pain) 15 Days Qty: 30 1RF duloxetine 30 mg Capsule,Delayed Release(Dr/Ec) 30 mg PO BID 30 Days Qty: 60 1RF Discharge Orders: Discharge ED (Routine); Ordered 10/26/21 Ordered By: Roman Lamas Referrals: Joseph Lewis MD [Primary Care Provider] - Discharge Diet: Regular Discharge Activity: Increase activity as tolerated Patient Instructions: Head Injury (ED) Activity Restrictions/Additional Instructions: Follow-up with medical provider as directed in the next 5 to 7 days for reevaluation.Continue taking all home medications as previously prescribed. Return to the ER or your medical provider if condition worsens. Please read and understand discharge instructions. Thank you for choosing [facility] for your healthcare needs today. Please realize this is an emergency room and that we are providing you with a medical screening exam and this may not be complete and all inclusive of all the testing and or work up that you may need to determine your ailment or severity of your illness. It is very important that you follow up as instructed or that you return to the Emergency Department should you have concerns or if your condition changes or worsens in any way. Coding Level of Care Code ED Rn Wound for Rober Arellano Exam Comprehensive
[2021-10-26] MEDS: HYDROcodone-acetaminophen 7.5-325 mg Tablet 1 TAB PO (12:42)
== END 2021-10-26 12:44 | disposition home or self-care (01) ==
PROVIDERS: Emergency Provider Physician Assistant; PCP Family Medicine
DX: S09.8XXA Other specified injuries of head, initial encounter (principal); S69.91XA Unspecified injury of right wrist, hand and finger(s), initial encounter; I50.9 Heart failure, unspecified; E11.9 Type 2 diabetes mellitus without complications; F17.210 Nicotine dependence, cigarettes, uncomplicated; W18.09XA Striking against other object with subsequent fall, initial encounter
CPT/HCPCS: 70450; 73090; 73110; 99284

== ENCOUNTER 2021-12-16 15:28 | Emergency (ER) | payer MEDICARE, MEDICAID, SELFPAY ==
[2021-07-26 11:33] VITALS: BP 110/72; BMI 37.9
[2021-12-16 15:55] VITALS: BMI 40.4
--- NOTE | 2021-12-16 16:33 | W.ED.BACK ---
HPI - Back Pain/Injury General: Chief Complaint: Back Pain/Injury Stated Complaint: CHRONIC BACK PAIN Time Seen by Provider: 12/16/21 16:32 Source: patient Mode of arrival: EMS Limitations: no limitations History of Present Illness: 56-year-old female with a significant history of chronic low back pain presents to the ER today for worsening back pain. Patient reports she has an appointment on Sunday however her pain is what she describes as unbearable. Patient reports she called the back specialist and they told her to go to the ER. Patient reports she had an MRI done in October and is needing to have surgery done however they are waiting on insurance approval. Patient reports at times she has some loss of bowels and describes it more as a leakage but this is been going on for quite some time. Patient also reports she urinates on herself however this is due to pain with walking and not loss of bladder control. Patient reports she takes Soma at home but nothing else for pain. She reports she was told not to take ibuprofen due to her liver however after discussing this with her she thinks maybe that was Tylenol she was told that about. Patient reports a longstanding history of back problems including upper back surgeries. Patient reports she is just not sleeping at night due to her pain. Review of Systems General: Reports: 10 or more systems reviewed and unremarkable except in HPI and below PFSH ED PFSH: Medical History Alcohol use disorder, severe, dependence Anorexia nervosa, restricting type Bilateral primary osteoarthritis of hip Cannabis dependence, continuous Chronic back pain Chronic post-traumatic stress disorder Congestive heart failure Diabetes mellitus H/O Belkys-Valenzuela syndrome (~07/2019) EGD at [facility] [place]. EGD 10/26 negative. MONTANO (nonalcoholic steatohepatitis) Nicotine dependence, cigarettes, uncomplicated Psychiatric care Sacroiliitis Uncontrolled type 2 diabetes with neuropathy Surgical History H/O cervical spine surgery H/O colonoscopy History of esophagogastroduodenoscopy Family History Son Suicide September 2019 Other Cancer Hypertension Psychiatric illness Social History Smoking and tobacco status: current every day smoker cigarettes Packs smoked per day: 0.5 Years cigarettes smoked: 32 Quit status (tobacco): has tried quititng Alcohol intake: former Former alcohol use details: 8 days sober Adopted: No Caregiver/support person: Yes (cleans and runs errands) Lives independently: No Household members: significant other Housing: Apartment Marital status: Single Number of children: 2 Number of grandchildren: 0 Highest education level completed: Associate Degree: Occupational, Technical, Vocational Program Education level details: [employer] service: No Current occupational status: disabled Pets and animals: Yes Pets & animals: cat(s) History of recent travel: No Leisure activites: music and games Sexually active: Yes Current gender identity: Female Aparna/Holiness: Cheondoism Special aparna needs: No Agree to transfusion: Yes Financial difficulty paying for basics: Not Very Hard Female Reproductive History: Date of last menstrual period: 04/09/98 Para: 2 Spontaneous abortions: Yes (10) Physical Exam Const: COMMON NORMALS: no acute distress, average body habitus, patient oriented x3, no limitations, healthy appearing, alert and well nourished Neck/C-Spine: COMMON NORMALS: full ROM Resp: COMMON NORMALS: normal respiratory effort EFFORT & INSPECTION: Yes able to speak in complete sentences Cardio: COMMON NORMALS: regular rate and regular rhythm RATE: regular rate RHYTHM: regular rhythm Back/Pelvis: LUMBAR SPINE/LOWER BACK: Yes normal to inspection, Yes ROM limited, Yes pain with ROM and Yes paraspinal muscle tenderness OTHER: Patient appears comfortable in the ER, she does not appear in any distress due to back pain. Extremity: COMMON NORMALS: normal to inspection and full ROM Neuro: COMMON NORMALS: patient oriented x3 SENSORIUM/ORIENTATION: Yes alert Psych: COMMON NORMALS: mental status grossly normal, Normal thought process present and cooperative THOUGHT PROCESS: Normal thought process present Skin: COMMON NORMALS: no rashes or lesions noted GENERAL SKIN EXAM: no rashes or lesions noted Course ED course: 56-year-old female with a significant history of chronic low back pain presents to the ER today for worsening back pain. Patient reports she has an appointment on Sunday however her pain is what she describes as unbearable. Patient reports she called the back specialist and they told her to go to the ER. Patient reports she had an MRI done in October and is needing to have surgery done however they are waiting on insurance approval. Patient reports at times she has some loss of bowels and describes it more as a leakage but this is been going on for quite some time. Patient also reports she urinates on herself however this is due to pain with walking and not loss of bladder control. Patient reports she takes Soma at home but nothing else for pain. She reports she was told not to take ibuprofen due to her liver however after discussing this with her she thinks maybe that was Tylenol she was told that about. Patient reports a longstanding history of back problems including upper back surgeries. Patient reports she is just not sleeping at night due to her pain. Patient does not need additional imaging at this time given she is already scheduled to follow-up with the surgeon on Sunday. We will treat with medications at this time. Vital Signs: Vital signs: Vital Signs Oxygen Delivery Me thod 12/16/21 15:55 MDM - Back Pain/Injury Medical Decision Making 56-year-old female with a significant history of chronic low back pain presents to the ER today for worsening back pain. Patient reports she has an appointment on Sunday however her pain is what she describes as unbearable. Patient reports she called the back specialist and they told her to go to the ER. Patient reports she had an MRI done in October and is needing to have surgery done however they are waiting on insurance approval. Patient reports at times she has some loss of bowels and describes it more as a leakage but this is been going on for quite some time. Patient also reports she urinates on herself however this is due to pain with walking and not loss of bladder control. Patient reports she takes Soma at home but nothing else for pain. She reports she was told not to take ibuprofen due to her liver however after discussing this with her she thinks maybe that was Tylenol she was told that about. Patient reports a longstanding history of back problems including upper back surgeries. Patient reports she is just not sleeping at night due to her pain. Patient does not need additional imaging at this time given she is already scheduled to follow-up with the surgeon on Sunday. We will treat with medications at this time. We will do a high dose of prednisone along with ketorolac. Patient was told not to take ibuprofen due to her liver however I did discuss this with her and it sounds more like she was told not to take Tylenol. She denies any other reactions to ibuprofen that would keep her from taking ketorolac. This will be for a short amount of time to help with her pain. I do not think patient needs controlled pain meds at this time given she has a follow-up on Sunday to discuss surgery. Recommend rest and conservative treatment at home. Return to the ER with any new or worsening symptoms including complete loss of bowel or bladder control. Patient verbalized understanding and was in agreement with the treatment plan. Critical Care Time Critical Care Time: Critical Care Time: No Discharge Plan Discharge Patient Disposition: Home Clinical Impression: Acute exacerbation of chronic low back pain Condition: Stable Prescriptions: New prednisone 20 mg tablet See Rx Instructions .ROUTE .COMPLEX 4 Days Qty: 15 0RF Rx Instructions: 3 tabs x 3 days, then 2 tabs x 2 days then 1 tab x 2 days ketorolac 10 mg tablet 10 mg PO Q8H PRN (Reason: pain) 3 Days Qty: 9 0RF No Action nitroglycerin [Nitrostat] 0.4 mg tablet, sublingual 0.4 mg SUBLINGUAL Q5M PRN (Reason: Chest Pain) epinephrine 0.3 mg/0.3 mL auto-injector 0.3 mg IM Q10M PRN (Reason: Chest Pain) Rx Instructions: for 2 doses cyclobenzaprine 10 mg tablet 10 mg PO TID PRN (Reason: Muscle Spasm) Rx Instructions: Take one tablet three times per day x 5 days Prescribed on 09/09/21 quetiapine [Seroquel] 50 mg tablet 50 mg PO DIRECTED Qty: 90 6RF Rx Instructions: Take one tablet at 3 pm and two tabs at bedtime citalopram 40 mg tablet 40 mg PO DAILY hydroxyzine HCl 50 mg tablet 50 mg PO QID PRN lamotrigine [Lamictal] 150 mg tablet 150 mg PO BID trazodone 150 mg tablet 150 - 300 mg PO DAILY PRN (Reason: insomnia) gabapentin 300 mg capsule 300 mg PO TID omeprazole 20 mg capsule,delayed release(DR/EC) 20 mg PO DAILY nicotine 21 mg/24 hr patch 24 hour 1 patch transdermal DAILY chlorpromazine 25 mg tablet 25 mg PO BID PRN albuterol sulfate 90 mcg/actuation HFA aerosol inhaler 2 inh INHALATION Q4H PRN (Reason: shortness of breath or wheezing) Qty: 18 0RF tramadol 50 mg Tablet 50 mg PO BID PRN (Reason: Moderate Pain) 15 Days Qty: 30 1RF Discharge Orders: Discharge ED (Routine); Ordered 12/16/21 Ordered By: Joy Johnson Referrals: Joseph Lewis MD [Primary Care Provider] - Discharge Diet: Usual diet Discharge Activity: Increase activity as tolerated Patient Instructions: Opioid Safety Activity Restrictions/Additional Instructions: Take prednisone and ketorolac as prescribed. Continue home medications as previously prescribed. Rest recommended. Follow-up with back surgeon on Sunday at scheduled appointment. Return to the ER with any new or worsening symptoms including complete loss of bowel or bladder control. Coding Level of Care Code ED Interactive Account Manager for Rober Arellano
== END 2021-12-16 16:45 | disposition home or self-care (01) ==
PROVIDERS: Emergency Provider Physician Assistant; PCP Family Medicine
DX: G89.29 Other chronic pain (principal); M54.50 Low back pain, unspecified; F17.210 Nicotine dependence, cigarettes, uncomplicated; I50.9 Heart failure, unspecified; E11.9 Type 2 diabetes mellitus without complications
CPT/HCPCS: 99283

== ENCOUNTER → 2021-12-20 15:40 | Outpatient (BNVA) | payer MEDICARE, MEDICAID, SELFPAY ==
[2021-07-26 11:33] VITALS: BP 110/72; BMI 37.9
== END ==
PROVIDERS: PCP Family Medicine; Visit Provider Orthopaedic Surgery
DX: M43.16 Spondylolisthesis, lumbar region (principal); M48.061 Spinal stenosis, lumbar region without neurogenic claudication; M51.26 Other intervertebral disc displacement, lumbar region
CPT/HCPCS: 99214

== ENCOUNTER 2022-01-02 12:28 | Inpatient (IN) | payer MEDICARE, MEDICAID, SELFPAY ==
[2021-07-26 11:33] VITALS: BP 110/72; BMI 37.9
[2021-12-28 08:46] VITALS: BMI 36.3
--- NOTE | 2021-12-28 09:01 | ANES.PREANE2 ---
Pre-Anesthetic Assessment Height/Weight: Height 1.5 m Weight 81.647 kg Preop Diagnosis: hematemesis Operation Date: 01/02/22 10:40 Proposed Procedures p Posterior Lumbar Interbody Fusion WITH DECOMPRESSION L3-L5 32030/04873/[id number]/[id number]/49748/14566/36897/M51.26/M43.10(Not Applicable) - Javed Ghosh, DO Familial anesthetic complications: woke up during a neck surgery (awareness) - she remembers them saying She's coming to and she tried to open her eyes and then fell back asleep. Section extreme pain Social No alcohol and No tobacco Exam alert, oriented x 3, clear to auscultation bilaterally and regular rate & rhythm Airway Mallampati: Class III Dentition: false Pulmonary Sleep Apnea (doesn't use her bipap) CV/HEM Congestive Heart Failure ( speculated - never been on any meds. Found enlarged Right heart. No symptoms) NTG - gets chest pains under really high stress (panic attacks) and they gave her NTG, just to be safe. Rarely used NTG, maybe once a month cardiopulmonary stress test 2017 CONCLUSION: 1. No significant EKG changes with the LexiScan infusion. 2. No LexiScan induced chest pain or cardiac arrhythmia. 3. Normal blood pressure and heart rate response. 4. Sestamibi/sestamibi perfusion scan pending; see separate report. Hepatic MONTANO Metabolic Diabetes Mellitus (Diet-controlled) Anesthetic Plan ASA status: 3 Anesthesia: General Risk of > 500 ml blood loss (7ml/kg in children): Yes, adequate IV access and fluids planned Medications/Allergies Home Medications Medication Instructions Recorded Confirmed Last Taken Type nitroglycerin 0.4 mg sublingual 0.4 mg sublingual Q5M PRN Chest 04/28/19 12/28/21 01/14/21 History tablet (Nitrostat) Pain albuterol sulfate 90 mcg/actuation 2 inh inhalation Q4H PRN shortness 08/13/20 12/28/21 05/19/21 Rx aerosol inhaler of breath or wheezing #18 grams epinephrine 0.3 mg/0.3 mL 0.3 mg IM Q10M PRN Chest Pain 04/19/21 12/28/21 Unknown History injection, auto-injector quetiapine 50 mg tablet (Seroquel) 50 mg PO DIRECTED #90 tabs 08/01/22 09/21/22 Unknown Rx citalopram 40 mg tablet 40 mg PO DAILY 12/06/21 12/28/21 Unknown History gabapentin 300 mg capsule 300 mg PO TID 12/06/21 12/28/21 Unknown History hydroxyzine HCl 50 mg tablet 50 mg PO QID PRN Anxiety 12/06/21 12/28/21 Unknown History lamotrigine 150 mg tablet 150 mg PO BID 12/06/21 12/28/21 Unknown History (Lamictal) trazodone 150 mg tablet 150 - 300 mg PO DAILY PRN insomnia 12/06/21 12/28/21 Unknown History carisoprodol 350 mg tablet (Soma) 350 mg PO TID PRN Cramps 12/28/21 12/28/21 Unknown History Allergies Allergy/AdvReac Type Severity Reaction Status Date / Time venom-wasp Allergy Severe ALGY-Anaphy Verified 12/28/21 08:35 laxis aspirin Allergy Unknown Unknown Verified 12/28/21 08:35 Cephalosporins Allergy Unknown Unknown Verified 12/28/21 08:35 NSAIDS (Non-Steroidal Allergy Unknown Unknown Verified 12/28/21 08:35 Anti-Inflamma sumatriptan [From Imitrex] Allergy Unknown Unknown Verified 12/28/21 08:35 acetaminophen [From Tylenol] Allergy Unknown Verified 12/28/21 08:35 ibuprofen Allergy UNKNOWN Verified 12/28/21 08:35 [From NeoProfen (ibuprofen lysn)(PF)] metoclopramide [From Reglan] Allergy ALGY-Joint Verified 12/28/21 08:35 Pain PFSH Anesthesia Medical History Alcohol use disorder, severe, dependence Anorexia nervosa, restricting type Bilateral primary osteoarthritis of hip Cannabis dependence, continuous Chronic back pain Chronic post-traumatic stress disorder Congestive heart failure Diabetes mellitus H/O Belkys-Valenzuela syndrome (~07/2019) EGD at [facility]. EGD 10/26 negative. MONTANO (nonalcoholic steatohepatitis) Nicotine dependence, cigarettes, uncomplicated Psychiatric care Sacroiliitis Uncontrolled type 2 diabetes with neuropathy Surgical History H/O cervical spine surgery H/O colonoscopy History of esophagogastroduodenoscopy Family History Son Suicide September 2019 Other Cancer Hypertension Psychiatric illness Social History Smoking and tobacco status: former smoker (quit 2 months ago) Quit status (tobacco): has tried quititng Alcohol intake: former Former alcohol use details: 8 days sober Adopted: No Caregiver/support person: Yes (cleans and runs errands) Lives independently: No Household members: significant other Housing: Apartment Marital status: Single Number of children: 2 Number of grandchildren: 0 Highest education level completed: Associate Degree: Occupational, Technical, Vocational Program 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
[2022-01-02] VITALS (24 sets, daily range): BP systolic 99–153; BP diastolic 58–90; PULSE 86–121; RESP 14–22; TEMP 36.4–37.2; O2SAT 94–100; BMI 45.1
--- NOTE | 2022-01-02 | SCC_ITS ---
Procedure done: 1. L4/5 Interbody fusion with posterolateral fusion 2. Instrumentation L3-5 3. Cage at L4/5 4. L4/5 laminectomy with partial facetectomy 5. L3/4 Laminectomy with partial facetectomy 6. Computer navigation stereotactic for the spine 7. use of autograft from same incision 8. allograft 9. Bone marrow aspirate from right iliac crest 6 seconds of fluoroscopic guidance, for a cumulative dose of 78.1 mGy, was provided to Dr. Ghosh by the radiology department. C-arm images of the lumbar spine were saved for the patient's permanent record. [facility] CENTERReynaldo
--- NOTE | 2022-01-02 | XR_ITS ---
WS: [id number] Exam: XR lumbar spine 2-3V* [id number] Date/Time of Exam: 01/02/2022 12:00 AM Reason For Exam: l3-l5 instrumented fusion AP and lateral intraoperative C-arm images of the lower lumbar spine are submitted for evaluation. There are bilateral pedicle screws in L3, L4 on L5. A disc spacer is seen at the L4-5 disc level. Areli gical retractors are in place. No other significant finding on this limited series.
[2022-01-02] MEDS: sodium chloride 0.9% 1,000 ML 30 ML IV (07:38)
[2022-01-02] MEDS: fentaNYL 50 mcg/mL INJ 2mL 100 MCG IVP (07:55)
--- NOTE | 2022-01-02 08:39 | P.ANESUD_ITS ---
Pre-Anesthetic Update Pre-Anesthetic Assessment: Date of Surgery/Procedure: 01/02/22 Preop Chelo gnosis: Spondylolisthesis L4-5, lumbar stenosis Proposed Procedure: Operation Date: 01/02/22 08:40 Proposed Procedures p L3,4,5 Posterior instrumented fusion w/PLIF L4-5 Decompression L3,4,5 w/other indicated procedures(Not Applicable) - Javed Ghosh, DO Any changes to Pre-Anesthetic Assessment?: No Last Intake: Intake Last Liquid Date 01/01/22 Last Liquid Time 21:00 Last Solid Date 01/01/22 Last Solid Time 21:00 Vitals: Temperature 97.6 F 01/02/22 07:44 Temperature Source Temporal Artery S can 01/02/22 07:44 Pulse Rate 86 01/02/22 07:44 Respiratory Rate 18 01/02/22 07:55 Respiratory Effort 01/02/22 07:55 Respiratory Depth Normal 01/02/22 07:55 Blood Pressure 153/86 01/02/22 07:44 Blood Pressure Yaneli n 108 01/02/22 07:44 Pulse Oximetry 94 01/02/22 07:55 Oxygen Delivery Me thod 01/02/22 08:00 Exam: Pre-Anes Outpt Exam: alert, oriented x 3 and regular rate & rhythm Cardiac Studies: Echocardiogram Ultrasound 11/17/19
--- NOTE | 2022-01-02 08:44 | W.PM.OPSUD ---
Surgery/Procedure H&P Update DATE OF PROCEDURE: January 02, 2022 DATE H&P PERFORMED: 12/20/20 H&P UPDATE INFORMATION: I have reviewed H&P completed within last 30 days, I have examined patient prior to procedure and No changes to prior documentation PREOP DIAGNOSIS: Spondylolisthesis L4-5, lumbar stenosis PLANNED PROCEDURE: Operation Date: 01/02/22 08:40 Proposed Procedures p L3,4,5 Posterior instrumented fusion w/PLIF L4-5 Decompression L3,4,5 w/other indicated procedures(Not Applicable) - Javed Ghosh DO
[2022-01-02] MEDS: clindamycin 900 MG/50 ML PREMIX 100 MG IV ×2 (09:27→18:47)
[2022-01-02] MEDS: heparin, porcine 1,000 unit/mL INJ 10 mL 10000 UNIT IRRIGATION (10:02)
[2022-01-02] MEDS: vancomycin 1,000 MG SDV 1000 MG XX (10:03)
--- NOTE | 2022-01-02 12:43 | P.OP_ITS ---
Operative Report Date of procedure: January 02, 2022 Pre-op diagnosis: Preop Diagnosis Spondylolisthesis L4-5, lumbar stenosis Post-op diagnosis: same Procedure done: 1. L4/5 Interbody fusion with posterolateral fusion 2. Instrumentation L3-5 3. Cage at L4/5 4. L4/5 laminectomy with partial facetectomy 5. L3/4 Laminectomy with partial facetectomy 6. Computer navigation stereotactic for the spine 7. use of autograft from same incision 8. allograft 9. Bone marrow aspirate from right iliac crest Surgeon: Javed Ghosh Nutritional Services Cook: Paulino Ojeda Nutritional Services Cook: The surgical physician assistant, Paulino Ojeda, PAC was needed for his expertise under the microscope. He was important and necessary throughout the procedure to complete in a safe and timely manner. He assisted with patient positioning prepping and draping tissue retraction suctioning of the operative field protection of the dural sac and tissue closure Estimated blood loss (mL): 1,000 Procedure: 1. L4/5 Interbody fusion with posterolateral fusion 2. Instrumentation L3-5 3. Cage at L4/5 4. L4/5 laminectomy with partial facetectomy 5. L3/4 Laminectomy with partial facetectomy 6. Computer navigation stereotactic for the spine 7. use of autograft from same incision 8. allograft 9. Bone marrow aspirate from right iliac crest Patient is brought to the operative suite. After undergoing anesthesia, the patient had neuro monitoring attached. Patient was then placed in the prone position on the Zac table. All areas of impingement were well-padded. Patient was then prepped and draped in the normal sterile fashion. Skin incision was then made over the L L3-L5 space. Subperiosteal dissection was made out to the transverse processes of L 3 bilaterally, L4 bilaterally and L 5 bilaterally. Next the Node Management bone marrow aspirate kit was used to aspirate bone marrow aspirate from the right iliac crest. This was done by using the sharp probe to open up the bone. Aspiration was performed and then the blunt probe was then used to dissect down to through the bone tunnel. An aspirating well drawn back a millimeter approximately 20 cc of bone marrow aspirate was used. Admixed with the allograft and autograft bone that will be used. Next the computer navigation was used. This was hooked up by putting 2 pins in the right iliac crest. These 2 pins were later removed at the end the case. The fiducial was then attached. And the C-arm was brought in and the information from serum was linked to the computer and this was used to facilitate using the computer navigation for placing the pedicle screws. The technique for placing the pedicle screws was to use a drill followed by the gearshift probe linked to computer navigation. Followed by the ball probe to feel the superior inferior medial lateral quiroz of the pedicles. Then placement of the screws linked to the computer navigation. Was done at each pedicle. Screws were placed at L L3 bilaterally, L4 bilaterally and L 5 bilaterally. Laminectomy was then performed at L3. This was done on the left side because patient's symptoms are all left-sided. The was a partial facetectomy also this was done using high-speed bur curved curettes Kerrison rongeurs were then used to facilitate decompressing the L3 nerve root going through the L3-4 foramen as well as the L4 nerve root as it passed around the L4 pedicle. Next attention was brought to performing the laminectomy of L5. This was done using the high-speed bur Kerrisons and curettes. Once the lamina was removed and then attention was brought to performing a partial facetectomy on the contralateral side. This was done again using the high-speed bur curettes and Kerrisons. The ligamentum flavum was taken down bilaterally from L 4 to L 5. Attention was then brought to the facet on the ipsilateral side. The facet was taken down. The L 5 nerve was decompressed as it passed around the L 5 pedicle. The laminectomy was done for purposes of decompressing the nerve as well as placement of the cage. The L 4 nerve was identified as it traversed through the L 4/5 foramen. The thecal sac was identified and retracted. The L 4/5 disc base was identified. Using a knife the disc base was opened. And then sequential jay were placed. The first shaver was a 6 and the last shaver was a 12. Using a pituitary and down going curette the endplates were scraped and disc material was removed from the space. Once adequate decompression of the disc base was felt to be had. Osteoamp sponge was packed into the anterior aspect of the disc base. Then a size 14 cage from [employer] was placed after packing osteoamp into the cage. While placing the cage the thecal sac and L 5 nerve was protected. C arm was used to ensure that the cages placed in the appropriate position. Attention was then brought to attaching the rods to the screws placed in the L 3 bilaterally, L4 bilaterally and L5 bilaterally. Caps were torqued into position. Locking the construct in place. Wound was copiously irrigated and then attention was brought to decorticating the facets and transverse processes laterally. Bone that was taken down from the lamina was used along with osteoamp fibers and sponges were packed into the lateral gutters along the facet joints. This was done bilaterally. Wound was then closed in a layered fashion starting with the thoracolumbar fascia. 0-vicryl was used the sub cutaneous tissue was closed with 2-0 vicryl and skin with 4-0 monocryl. Glue was then used to seal the skin and a steril dressing was applied. Patient was then placed in the supine position. The endotracheal tube was removed and patient was transferred to the PACU in stable condition.
--- NOTE | 2022-01-02 12:47 | SUR.PHASEI ---
1232 PT TO PACU SLEEPY WITH ORAL AIRWAY IN PLACE, GOOD RESP EFFORT, VSS IV TO LTAC #20 PIID, LT WRIST @2- WOTJ MS 300ML NS AT KVO RATE PER GRAVITY, DRESSING TO BACK D/I HEMAVAC DRAIN COMPRESSED WITH SMALL AMT RED DRAINAGE FROM INCISION TO BACK ABDOMINAL BINDER IN PLACE BILAT SCDS ON PT WITH BROOKS CATHETER WITH YELLOW URINE TO TUBING AND BAG, STATLOCK TO RT INNER THIGH, PT DOES NOT AWAKE TO VOICE
--- NOTE | 2022-01-02 12:52 | SUR.PHASEI ---
PT STILL DOES NOT AWAKE TO VOICE OR TOUCH. VSS MONITOR SR WITH NO ECTOPY NOTED. PT ID BAND TO RT WRIST, PT ID'D WITH 2 IDENTIFIERS.
--- NOTE | 2022-01-02 13:03 | SUR.PHASEI ---
PT SPONTANEOUSLY SWALLOWS, DOES NOT OPEN EYES TO COMMAND BUT MOVES HEAD AND FACE MUSXLES, ORAL AIRWAY OUT, PT LIFTS HEAD FOR SECOND THEN BACK TO SLEEP GOOD AIRMOVEMENT NOTED PT ORALLY SX WITH YANKER SX NO GAG REFELX NOTED. SATS 99% ON 8L MASK, VSS.
--- NOTE | 2022-01-02 13:18 | SUR.PHASEI ---
DR SOMMERS AT BEDSIDE, PT FACE WASHED WITH COOL CLOTH PT LIFTS HEAD AND MOANS BUT DOES NOT OPEN EYES OR COUGH TO COMMAND, PT MOVES BILAT FEET/TOES TO COMMAND. MONITOR UNCHANGED HR 99-102 ST NO ECTOPY, NO FURTHER ORDERS RECIEVED FROM DR SOMMERS. OT MOVES BILAT ARMS AND REACHES FOR MASK BUT DOES NOT AWAKE OR FOLLOW COMMANDS ;
--- NOTE | 2022-01-02 13:22 | SUR.PHASEI ---
DR SOMMERS BACK AT BEDSIDE NO CHANGES, PT DOES NOT OPEN EYES OR FOLLOW COMMAND 3LNC PLACED SATS 96%
--- NOTE | 2022-01-02 14:14 | SUR.PHASEI ---
ATTEMPTED TO CALL FAMILY X 2 NO ANSWER, PT MUCH MORE AWAKE, REPORT CALLED TO FLOOR , FLOOR NURSE DARIO TO CHECK IF FAMILY IS ON FLOOR WAITING FOR PT.
--- NOTE | 2022-01-02 14:16 | SUR.PHASEI ---
PT TO GO TO FLOOR PER BED, NO FAMILY IN WAITING ROOM, PT DRESSING ASSESSMENT UNCHANGED D/I MONITOR ST WITH NO ECTOPY, PT AWAKES TO VOICE, KNOWS NAME AND PLACE, WANTS TO GET UP TO (PEE) PT REORIENTED TO BROOKS CATHETER FREQUENTLY, PT REPOSTITIONS SELF TO RT SIDE, PT MOVE BIILAT FEET , WITH RT STRONGER THAN LT. PT STATES THIS IS NORMAL FOR HER.
--- NOTE | 2022-01-02 14:51 | SUR.PHASEI ---
PT TO ROOM 263 PER BED PT AWAKES AND TALKS TO PT 'S EX AT BEDSIDE, HANDOFF TO PARESH MILLAN AT BEDSIDE, PT DRESSING D/I PT MOVES ALL EXT TO COMMAND, PT ORIENTED TO SELF PLACE AND SURGERY ONLY AT THIS TIME. DRAIN COMPRESSED AND BROOKS WITH APPROX 150-200ML YELLOW URINE NOT EMPTIED AT THIS TIME.
[2022-01-02] MEDS: lactated ringers 1,000 ML 90 ML IV (15:45)
--- NOTE | 2022-01-02 15:59 | ANE.PACU2 ---
Inpatient post-anesthesia follow up: Airway intact: Yes Vital signs: Temperature 98.1 F Pulse Rate 116 Respiratory Rate 15 Blood Pressure 115/58 Pulse Oximetry 95 Oxygen Delivery Me thod Nasal Cannula Oxygen Flow Rate 3 Fraction of Inspir ed Oxygen Hydration adequate: Yes Nausea and vomiting: No Additional Comments: sedated
[2022-01-02 17:33] LABS: Hematocrit 28.8 % (37.0-47.0); Hemoglobin 9.4 g/dL (11.5-15.3)
[2022-01-02] MEDS: HYDROcodone-acetaminophen 5-325 mg Tablet PO ×2 (18:06→22:27)
[2022-01-02] MEDS: lamoTRIgine 100 mg Tablet 150 MG PO (18:07)
[2022-01-02] MEDS: docusate sodium 100 mg Capsule PO (18:07)
--- NOTE | 2022-01-02 18:17 | PC.NURSE ---
pt educ multiple times abt twisting in bed, educ on log rolling. pt insisted on twisting.
[2022-01-02] MEDS: gabapentin 300 mg Capsule PO (20:34)
[2022-01-03] VITALS (10 sets, daily range): BP systolic 105–136; BP diastolic 63–75; PULSE 83–95; RESP 16–18; TEMP 36.6–37.1; O2SAT 90–98
[2022-01-03] MEDS: morphine 4 mg/mL SDV 1 mL IVP (00:46)
[2022-01-03] MEDS: clindamycin 900 MG/50 ML PREMIX 100 MG IV ×2 (00:47→12:04)
[2022-01-03] MEDS: lactated ringers 1,000 ML 90 ML IV ×3 (00:51→23:44)
[2022-01-03] MEDS: HYDROcodone-acetaminophen 5-325 mg Tablet PO ×4 (04:36→20:14)
--- NOTE | 2022-01-03 07:12 | P.PN_ITS ---
Subjective Subjective: POD 1 Patient resting comfortably. She is very somnolent this morning. Reports back pain moderate lower extremity pain. Denies any chest pain, shortness of breath, headaches. Vitals/I&O/Wt Last Vital Signs Temp 98 F 01/03/22 04:00 Pulse 95 01/03/22 04:00 Resp 17 01/03/22 04:00 BP 110/63 01/03/22 04:00 Pulse Ox 95 01/03/22 04:00 O2 Del Method 01/02/22 20:07 O2 Flow Rate 3 01/02/22 20:07 01/02/22 01/03/22 01/03/22 22:59 06:59 14:59 Intake Total 290 / 2215 869 / 3084 Output Total 600 / 1800 875 / 2675 Balance -310 / 415 -6 / 409 Weight last 48 hrs Weight 223 lb 9.6 oz Physical Exam Narrative: Patient presents alert and oriented x3 with a good general appearance normal mood and affect. Normal coordination normal stability. Mild tenderness around the incisional site with the incision appears in and dry with Hemovac intact. No signs of erythema or drainage. No signs of infection. Patient denies any fevers or chills. 5/5 motor strength both lower extremities with negative straight leg raise bilaterally. Calves are supple no medial thigh tenderness. Pulses are 2+ at the dorsalis pedis and posterior tibial region. Good capillary refill throughout normal sensation light touch both lower extremities. Urinary Catheter Management: Snatana: Cath Placed During This Visit: yes Reason for Continuing Indwelling Catheter: Perioperative Use in Selected Surgeries Urinary Catheter Date of Insertion: 01/02/22 Urinary Catheter Time of Insertion: 09:40 Data : 01/02/22 17:19 A&P Assessment and plan (1) Acute blood loss as cause of postoperative anemia: We will discontinue Santana catheter. Continue Hemovac drain until tomorrow. Physical therapy work with mobilization. coordinator cardiopulmonary services to evaluate placement. Continue incentive spirometry for pulmonary toilet. Plan for discharge tomorrow. (2) Status post lumbar spinal fusion: Attestations Medical Necessity Statement*: Hopeful discharge tomorrow Coding Level of Care Code Acute [employer] for [employer] Arellano Diagnoses Acute blood loss as cause of postoperative anemia D62 Status post lumbar spinal fusion Z98.1
[2022-01-03 08:52] LABS: Hematocrit 24.3 % (37.0-47.0); Hemoglobin 8.3 g/dL (11.5-15.3)
[2022-01-03] MEDS: gabapentin 300 mg Capsule PO ×3 (08:58→20:14)
[2022-01-03] MEDS: docusate sodium 100 mg Capsule PO ×2 (08:58→17:31)
[2022-01-03] MEDS: citalopram 20 mg Tablet 40 MG PO (08:58)
[2022-01-03] MEDS: lamoTRIgine 100 mg Tablet 150 MG PO ×2 (08:58→17:31)
[2022-01-03] MEDS: quetiapine 25 mg Tablet 50 MG PO (14:33)
[2022-01-04] VITALS (12 sets, daily range): BP systolic 104–135; BP diastolic 62–81; PULSE 82–105; RESP 16–18; TEMP 36.4–38.2; O2SAT 92–96
[2022-01-04] MEDS: HYDROcodone-acetaminophen 5-325 mg Tablet PO ×4 (00:03→14:44)
--- NOTE | 2022-01-04 06:50 | P.PN_ITS ---
Subjective Subjective: POD 2 Patient complaining of back pain. Patient very somnolent. Denies any chest pain, shortness of breath or headaches. Vitals/I&O/Wt Last Vital Signs Temp 98.4 F 01/04/22 04:00 Pulse 85 01/04/22 04:00 Resp 17 01/04/22 04:00 BP 112/65 01/04/22 04:00 Pulse Ox 92 01/04/22 04:00 O2 Del Method 01/04/22 04:00 O2 Flow Rate 3 01/02/22 20:07 01/03/22 01/03/22 01/04/22 14:59 22:59 06:59 Intake Total 1769 / 1769 240 / 2009 1000 / 3010 Output Total 250 / 250 300 / 550 Balance 1769 / 1769 -1759 700 / 2460 Weight last 48 hrs Weight 223 lb 9.6 oz Physical Exam Narrative: Patient presents alert and oriented x3 with a good general appearance normal mood and affect.? Normal coordination normal stability.? Mild tenderness around the incisional site with the incision appears in and dry with Hemovac intact.? No signs of erythema or drainage.? No signs of infection.? Pat ient denies any fevers or chills.? 5/5 motor strength both lower extremities with negative straight leg raise bilaterally.? Calves are supple no medial thigh tenderness.? Pulses are 2+ at the dorsalis pedis and posterior tibial region.? Good capillary refill throughout normal sensation light touch both lower extremities. Urinary Catheter Management: Santana: Cath Placed During This Visit: yes Reason for Continuing Indwelling Catheter: Perioperative Use in Selected Surgeries Urinary Catheter Date of Insertion: 01/02/22 Urinary Catheter Time of Insertion: 09:40 Data : 01/03/22 08:39 A&P Assessment and plan (1) Status post lumbar spinal fusion: Encourage her to continue mobilizing. With no bending lifting or twisting. Discontinue the Hemovac drain today. Ready for transfer to rehab or nursing facility when bed available. We will see her back in the office in 1 week's time for a wound check. Continue incentive spirometry for pulmonary toilet. (2) Acute blood loss as cause of postoperative anemia: Attestations Medical Necessity Statement*: Ready for discharge when bed available Coding Level of Care Code Acute Metal Can Inspector for Chg Fwd Diagnoses Status post lumbar spinal fusion Z98.1 Acute blood loss as cause of postoperative anemia D62
[2022-01-04 09:01] LABS: Hemoglobin 7.7 g/dL (11.5-15.3)
--- NOTE | 2022-01-04 09:28 | PC.NURSE ---
reported to physician via telephone pt's hgb 7.7 this am. no new orders at this time.
[2022-01-04] MEDS: lamoTRIgine 100 mg Tablet 150 MG PO (09:51)
[2022-01-04] MEDS: gabapentin 300 mg Capsule PO ×2 (09:52→14:44)
[2022-01-04] MEDS: docusate sodium 100 mg Capsule PO (09:52)
[2022-01-04] MEDS: citalopram 20 mg Tablet 40 MG PO (09:52)
[2022-01-04] MEDS: lactated ringers 1,000 ML 90 ML IV (09:53)
[2022-01-04] MEDS: sodium chloride 0.9% (100 ml) 100 ML 10 ML (11:06)
[2022-01-04 14:13] LABS: SARS Covid-2 Antigen Negative (Negative)
[2022-01-04] MEDS: quetiapine 25 mg Tablet 50 MG PO (14:44)
--- NOTE | 2022-01-05 12:20 | P.DS_ITS ---
Discharge Providers Date of Admission: 01/02/22 12:28 Date of Discharge: January 05, 2022 Attending Provider at Admission: Javed Ghosh DO Attending Provider at Discharge: Javed Ghosh DO Primary Care Provider: Joseph Lewis MD Diagnoses at Discharge Discharge Diagnosis (1) Status post lumbar spinal fusion: Status: Acute (2) Acute blood loss as cause of postoperative anemia: Status: Resolved Reason for Visit Reason for Visit: PLIF W/DECOMPRESSION Hospital Course Hospital Course received 1 u PRB's Physical Exam Urinary Catheter Management: Santana: Cath Placed During This Visit: yes Reason for Continuing Indwelling Catheter: Perioperative Use in Selected Surgeries Urinary Catheter Date of Insertion: 01/02/22 Urinary Catheter Time of Insertion: 09:40 Discharge Data Studies Completed and Pending Completed Studies During Hospitalization Category Date Time Status XR lumbar spine 2-3V* [id number] Routine Exams 01/02/22 Completed Laboratory Results Hgb 7.7 g/dL (11.5-15.3) L 01/04/22 08:52 Hct 23.0 % (37.0-47.0) L 01/04/22 08:52 SARS-CoV-2 Ag (Rapid) Negative (Negative) 01/04/22 13:18 Blood Type AB Positive 01/02/22 07:37 Rho(D) Type Positive 01/02/22 07:37 Antibody Screen Negative 01/02/22 07:37 Crossmatch See Detail 01/02/22 07:37 Vitals Last Vital Signs Temp 97.5 F L 01/04/22 16:04 Pulse 88 01/04/22 16:04 Resp 16 01/04/22 16:04 BP 112/62 01/04/22 16:04 Pulse Ox 92 01/04/22 16:04 O2 Del Method 01/04/22 15:37 O2 Flow Rate 3 01/02/22 20:07 Discharge Plan Discharge Patient Disposition: Xfer SNF Condition: Stable Prescriptions: New hydrocodone-acetaminophen 5-325 mg Tablet 1 - 2 tab PO Q4H PRN (Reason: Moderate To Severe Pain) Qty: 40 0RF Continued nitroglycerin [Nitrostat] 0.4 mg tablet, sublingual 0.4 mg SUBLINGUAL Q5M PRN (Reason: Chest Pain) epinephrine 0.3 mg/0.3 mL auto-injector 0.3 mg IM Q10M PRN (Reason: Anaphylaxis) Rx Instructions: for 2 doses quetiapine [Seroquel] 50 mg tablet 50 mg PO DIRECTED Qty: 90 6RF Rx Instructions: Take one tablet at 3 pm and two tabs at bedtime citalopram 40 mg tablet 40 mg PO DAILY hydroxyzine HCl 50 mg tablet 50 mg PO QID PRN (Reason: Anxiety) lamotrigine [Lamictal] 150 mg tablet 150 mg PO BID trazodone 150 mg tablet 150 - 300 mg PO DAILY PRN (Reason: insomnia) gabapentin 300 mg capsule 300 mg PO TID (DME) Bone Growth Stimulator E0748 See Rx Instructions .Route .MEDSUPPLY Qty: 1 0RF Rx Instructions: As directed albuterol sulfate 90 mcg/actuation HFA aerosol inhaler 2 inh INHALATION Q4H PRN (Reason: shortness of breath or wheezing) Qty: 18 0RF carisoprodol [Soma] 350 mg Tablet 350 mg PO TID PRN (Reason: Cramps) Discharge Orders: Discharge Order (Routine); Ordered 01/04/22 Ordered By: Paulino Ojeda Referrals: [facility] [Outside] Javed Ghosh DO [Physician] - 01/12/22 10:15 am Discharge Diet: Advance as tolerated Discharge Activity: Limit activity as instructed Patient Instructions: Hydrocodone/Acetaminophen (By mouth), Lumbar Spinal Fusion (GEN), Opioid Safety Activity Restrictions/Additional Instructions: Thank you for choosing [facility] for your care! The following is a list of instructions, from your provider, to follow upon your discharge to ensure you have the optimal recovery from your recent injury or surgery. Follow-up care is a long part of your treatment and safety. Be sure to make and go to all appointments and call your doctor if you are having problems. If you do not already have a follow-up appointment made, call Dr. Ghosh's] office in the next 1-3 days to make follow up appointment for 1 weeks at [phone]. It is also a good idea to know your test results and keep a list of the medicines you take. Medications will be prescribed for you at your provider's discretion. These medications are to be used as instructed; if they are taken more often that prescribed they will not be refilled early and in most cases will not be refilled at all. > When a refill is needed, you should contact maia boone 2-3 business days before your prescription runs out. Medications will NOT be refilled by commercial litigation attorney providers after hours! > Many pain medications contain Tylenol (Acetaminophen). Do not consume more than 4,000 mg of Tylenol per day in total with any combination of medications. > Pain medications can cause constipation. Please use an over the counter stool softener as directed, while taking pain medications. Consult your local pharmacist with questions or recommendations on stool softeners. If constipation persists, contact our office or your primary care provider. > While under our care, you are not to receive pain medications or other controlled substances from any other provider unless our office is notified and approves. Any attempts to do so will result in refusal to prescribe any further pain medications and possible dismissal from our practice. ? Walking is essential for the healing process after surgery. We would like you to slowly advance your walking. This should be done on relatively flat clear ground (inside or out) or can be done on a treadmill. Remember this goal does not have to happen all at once, slowly increase your distance and duration. This can be broken into more more than one walk per day as tolerated. Patients who walk as directed after surgery rarely require Physical Therapy. In the unlikely event this issue arises your provider will direct hospital staff to make the appropriate arrangements. ? No lifting over 5 pounds {a gallon of milk) or bending/twisting until further notice. Each of these activities places an unnecessary amount of stress onto the body and can impede the delicate healing process. > Instead of bending at the waist, keep your back straight and bend at the knees. > Instead of twisting your torso, keep your back straight and turn your entire body with your feet. ? You may sleep in any position which makes you comfortable. Many patients find comfort sleeping in a reclining chair. It is not abnormal to have difficulty sleeping for the first several weeks following your surgery. We recommend trying Benadry! or Tylenol PM as directed to help with your sleeping difficulties. Both medications are over the counter and available without prescription. ? NO SMOKING!!! Smoking dramatically increases the probability of developing postoperative wound infections. ? Common complaints after lumbar and/or thoracic spine surgery include, but are not limited to: numbness and/or tingling in the legs, pain around the incision and surrounding tissues, muscle spasms, or stiffness of the middle to low back. Contact our office if these symptoms persist or if an acute change occurs. ? No driving for the first 3-5days, and not while taking narcotics until seen at your follow-up appointment and cleared. There are no restrictions for riding on short trips, however if you take a longer trip, arrangements should be made to make regular stops to get out of the vehicle and stretch . ? Swelling is an unfortunate event that will take place with any surgery and is the primary source of your postoperative discomfort. While walking and regular approved activities helps control inflammation, there are additional steps you can take to minimize swelling. > Place ice over the surgical site and surrounding tissue for twenty minutes, followed by applying a low/medium heat (heating pad) for an additional twenty minutes every 1-2 hours as needed for painrelief. > You may use of over the counter anti-inflammatory medications (Ibuprofen, Motrin, Aleve, Advil, etc) as directed on the package label. These types of medicines will significantly reduce the amount of discomfort you experience after surgery from swelling. It should be noted that if you have and allergy to any of these medications, or a history of ulcers or kidney disease you should consult you primary care provider prior to starting these medications. Patient's Health Concerns: post op anemia Assessment: s/p L3-L5 fusion Plan of Treatment: f/u 1 week Discharge Attestations Time Spent in Discharge Care*: less than 30 min Quality Metrics Clinical Quality Measures [ No reported AMI, CVA or VTE this stay] Coding Level of Care Code Acute Chg FW DC note Diagnoses Status post lumbar spinal fusion Z98.1 Acute blood loss as cause of postoperative anemia D62
== END 2022-01-04 16:05 | disposition skilled nursing facility (03) | DRG 454 ==
LOC: MEDSURG 01-03 02:35
PROVIDERS: Admitting Provider Orthopaedic Surgery; PCP Family Medicine; Visit Provider Orthopaedic Surgery
PROC: 0SG00AJ Fusion of Lumbar Vertebral Joint with Interbody Fusion Device, Posterior Approach, Anterior Column, Open Approach (ICD-10-PCS; CPT 22612; principal; 2022-01-02 08:30)
DX: M43.16 Spondylolisthesis, lumbar region (principal); D62 Acute posthemorrhagic anemia; M51.26 Other intervertebral disc displacement, lumbar region; G89.29 Other chronic pain; R29.6 Repeated falls; Z88.8 Allergy status to other drugs, medicaments and biological substances; Z91.030 Bee allergy status; Z79.51 Long term (current) use of inhaled steroids; Z79.891 Long term (current) use of opiate analgesic; F10.20 Alcohol dependence, uncomplicated; M19.90 Unspecified osteoarthritis, unspecified site; F12.20 Cannabis dependence, uncomplicated; F43.12 Post-traumatic stress disorder, chronic; F17.210 Nicotine dependence, cigarettes, uncomplicated
CPT/HCPCS: 36415; 36430; 51702; 72100; 76000; 85014; 85018; 86850; 86900; 86920; 87426; 97110; 97116; 97161; 97530; C1713; C9359; J1100; J1170; J1644; J1885; J2270; J2370; J2405; J2704; J2710; J3010; J3370; J3490; J7030; P9016; P9041

== ENCOUNTER → 2022-01-12 10:59 | Outpatient (BNVA) | payer MEDICARE, MEDICAID, SELFPAY ==
[2021-07-26 11:33] VITALS: BP 110/72; BMI 37.9
== END ==
PROVIDERS: PCP Family Medicine; Visit Provider Orthopaedic Surgery
DX: Z47.89 Encounter for other orthopedic aftercare (principal); Z98.1 Arthrodesis status
CPT/HCPCS: 72100; 99024

== ENCOUNTER → 2022-01-24 14:34 | Outpatient (BNVA) | payer MEDICARE, MEDICAID, SELFPAY ==
[2021-07-26 11:33] VITALS: BP 110/72; BMI 37.9
== END ==
PROVIDERS: PCP Family Medicine; Visit Provider Orthopaedic Surgery
DX: Z98.1 Arthrodesis status (principal); Z47.89 Encounter for other orthopedic aftercare
CPT/HCPCS: 72100; 99024

== ENCOUNTER → 2022-02-16 13:11 | Outpatient (BNVA) | payer MEDICARE, MEDICAID, SELFPAY ==
[2021-07-26 11:33] VITALS: BP 110/72; BMI 37.9
== END ==
PROVIDERS: PCP Family Medicine; Visit Provider Orthopaedic Surgery
DX: Z98.1 Arthrodesis status (principal); Z47.89 Encounter for other orthopedic aftercare; W19.XXXA Unspecified fall, initial encounter; Y92.129 Unspecified place in nursing home as the place of occurrence of the external cause
CPT/HCPCS: 72100; 99024; 99214

== ENCOUNTER → 2022-04-04 15:17 | Outpatient (BNVA) | payer MEDICARE, MEDICAID, SELFPAY ==
[2021-07-26 11:33] VITALS: BP 110/72; BMI 37.9
== END ==
PROVIDERS: PCP Family Medicine; Visit Provider Orthopaedic Surgery
DX: Z47.89 Encounter for other orthopedic aftercare (principal); Z98.1 Arthrodesis status; M54.50 Low back pain, unspecified; M79.605 Pain in left leg; W00.0XXA Fall on same level due to ice and snow, initial encounter; Z87.891 Personal history of nicotine dependence
CPT/HCPCS: 72100; 99024

== ENCOUNTER 2022-04-07 09:21 | Outpatient (CLI) | payer MEDICARE, MEDICAID, SELFPAY ==
[2021-07-26 11:33] VITALS: BP 110/72; BMI 37.9
[2022-04-07] MEDS: iohexol 350 mg/mL 500 mL Btl (per mL) IV (09:28)
--- NOTE | 2022-04-07 09:30 | CT_ITS ---
WS: [id number] CT MYELOGRAM LUMBAR SPINE HISTORY: post op fusion, increased pain and weakness TECHNIQUE: Contiguous 2.5 mm axial imaging performed from T12 through the mid sacral level. Bone and soft tissue windows reviewed. Sagittal and coronal reformats are submitted and reviewed. DLP: 1276.[address] scans at [facility] use at least one of these dose optimization techniques: automated e xposure control; mA and/or kV adjustment per patient size (includes targeted exams where dose is matc hed to clinical indication); or iterative reconstruction. COMPARISON: 09/27/2012 and 10/20/2021 Good injection of contrast into the thecal sac. Posterior lumbar fusion extends from L3 to L5. L4 ant erolisthesis described on a prior MRI has improved status post posterior lumbar fusion. Interbody dis c spacer at L4-5. There is a fracture fragment along the anterior superior LEFT lateral L5 vertebral body which may be related to the interbody spacer or the pedicle screw placements. Also there is luce ncy surrounding the L5 pedicle screws. L1-L2: Normal. L2-L3: Mild disc bulging and facet arthritis. Remote healed nondisplaced fracture LEFT transverse pro cess of L3. L3-L4: Hardware artifact. No central or foraminal stenosis. Large LEFT hemilaminectomy defect. Bone g raft material is nonfused. L4-L5: Large posterior laminectomy defect. Facet joint arthritis. No stenosis identified. L5-S1: Large posterior laminectomy defect. Facet joint arthritis. Artifact causing obscuration of the soft tissues. Mild foraminal narrowing. Small amount of degenerative air RIGHT SI joint. CT/CT lumbar spine w con [id number] IMPRESSION: 1. Since the prior MRI lumbar spine of 10/20/2021 patient has undergone a poste rior lumbar fusion from L3 to L5 with interbody spacer at L4-5. 2. Lucency around the L5 pedicle screws most likely indicating loosening. 3. Fracture involving the superior LEFT lateral L5 vertebral body. May be asso ciated with the recent trauma or hardware placement. 4. No high-grade central stenosis. 5. Multilevel facet arthritis. 6. Remote healed fracture LEFT L3 transverse process.
--- NOTE | 2022-04-07 10:00 | IR_ITS ---
WS: [id number] LUMBAR MYELOGRAM HISTORY: post op fusion increase pain and weakness COMPARISON: Spine radiographs 04/04/2022 FLUOROSCOPY TIME: 1min [id number] # of spot films: 5 Procedure, risks and complications were explained to the patient. Risks including bleeding, infection , headaches, allergic reaction and seizures. Consent has been obtained. With the patient in prone position the skin over the lumbar region is cleansed with ChloraPrep and an esthetized with lidocaine. 22-gauge spinal needle is inserted into the thecal sac at the appropriate level determined by fluoroscopy. Omnipaque 240; 12 ml is injected slowly under fluoroscopy with no co mplications. Needle bevel is perpendicular to the longitudinal fibers of the dura. Stylet is reinsert ed prior to removal of the needle. Patient tolerated the procedure well. Patient will proceed to CT f or further evaluation. Patient is status post posterior lumbar fusion from L3 to L5. Interbody spacer at L4-5. The alignment and the disc space height of L4-5 appears similar to prior studies. Very slight lucency surrounding the pedicle screws in L5. These will be reevaluated on the CT. No fracture of the hardware. Good dist ention of the thecal sac with the contrast. L4 anterolisthesis by 2 to 3 mm similar to prior studies. IR/IR myelogram sp lumbar [id number] IMPRESSION: 1. Uncomplicated lumbar myelogram. 2. Posterior lumbar fusion from L3 to L5. Interbody spacer at L4-5. No fractur e in the hardware. 3. Very subtle lucency surrounding the pedicle screws at L5. These changes paulino l be evaluated on the CT for loosening. 4. Good distention of the thecal sac with contrast.
[2022-04-07] MEDS: iohexol 240 mg/mL 50 mL Btl INTRATHECA (10:45)
== END 2022-04-07 09:22 | disposition home or self-care (01) ==
LOC: RAD 09:22
PROVIDERS: PCP Family Medicine; Visit Provider Orthopaedic Surgery
DX: Z98.1 Arthrodesis status (principal); M43.16 Spondylolisthesis, lumbar region; S32.059A Unspecified fracture of fifth lumbar vertebra, initial encounter for closed fracture; X58.XXXA Exposure to other specified factors, initial encounter
CPT/HCPCS: 62304; 72132; Q9966; Q9967

== ENCOUNTER → 2022-04-13 14:15 | Outpatient (BNVA) | payer MEDICARE, MEDICAID, SELFPAY ==
[2021-07-26 11:33] VITALS: BP 110/72; BMI 37.9
== END ==
PROVIDERS: PCP Family Medicine; Visit Provider Orthopaedic Surgery
DX: S32.059A Unspecified fracture of fifth lumbar vertebra, initial encounter for closed fracture (principal); M43.16 Spondylolisthesis, lumbar region; W19.XXXA Unspecified fall, initial encounter; Z98.1 Arthrodesis status
CPT/HCPCS: 99024; 99214

== ENCOUNTER 2022-05-01 18:24 | Inpatient (IN) | payer MEDICARE, MEDICAID, SELFPAY ==
[2021-07-26 11:33] VITALS: BP 110/72; BMI 37.9
[2022-04-27 08:07] VITALS: BMI 36.3
[2022-04-27 09:00] LABS: Basophils % 0.4 %; Eosinophils # 0.1 10^3/uL (0.0-0.8); Eosinophils % 1.8 %; Hematocrit 36.1 % (37.0-47.0); Hemoglobin 11.8 g/dL (11.5-15.3); Lymphocytes # 0.8 10^3/uL (0.8-4.8); Lymphocytes % 14.8 %; Mean Corpuscular HGB Conc 32.7 g/dL (30.0-36.0); Mean Corpuscular Hemoglobin 26.9 pg (28.0-34.0); Mean Corpuscular Volume 82.2 fl (81-99); Mean Platelet Volume 11.2 fL (7.4-10.4); Monocytes # 0.3 10^3/uL (0.2-0.9); Monocytes % 6.3 %; Neutrophils # 3.86 10^3/uL (1.8-7.7); Neutrophils % 76.3 %; Nucleated Red Blood Cells % 0 %; Platelet Count 103 10^3/cmm (130-400); Red Blood Count 4.39 10^6/uL (4.1-5.3); Red Cell Distribution Width 16.1 % (12.1-15.1); White Blood Count 5.1 10^3/uL (4.0-10.0)
[2022-04-27 09:22] LABS: Anion Gap 14.6 (5-19); Blood Urea Nitrogen 6 mg/dL (6-20); Calcium 8.7 mg/dL (8.5-10.5); Carbon Dioxide 23 mmol/L (22-29); Chloride 106 mmol/L (98-107); Glomerular Filtration Rate 166.3 mL/min (90-130); Glucose 142 mg/dL (65-115); Osmolality Calculated 290 mOsm/kg (285-295); Potassium 3.6 mmol/L (3.5-5.1); Sodium 140 mmol/L (136-145)
--- NOTE | 2022-04-27 15:38 | ANES.PREANE2 ---
Pre-Anesthetic Assessment Height/Weight: Height 1.5 m Weight 81.647 kg Preop Diagnosis: Spondylolisthesis L4-5, lumbar stenosis Operation Date: 05/01/22 13:25 Proposed Procedures p Spinal Fusion Pelvis revison, L3 [id number],S32.009A, M43.16(Not Applicable) - Javedleeanne Stevenson Caron, DO Familial anesthetic complications: none Was Beta Britney taken within 24 hours: N/A Was Clonidine taken within 24 hours: N/A Social Alcohol and Tobacco (fito) Exam alert, oriented x 3 and regular rate & rhythm Airway Submandibular: within normal limits Cervical ROM: within normal limits Mallampati: Class II Dentition: false Pulmonary Chronic Obstructive Pulmonary Disease CV/HEM Anemia Metabolic Morbid Obesity Musc/skel Lower Back Pain Neuropsych Anxiety, Bipolar and Depression Anesthetic Plan ASA status: 3 Anesthesia: General Medications/Allergies Home Medications Medication Instructions Recorded Confirmed Last Taken Type nitroglycerin 0.4 mg sublingual 0.4 mg sublingual Q5M PRN Chest 04/28/19 04/27/22 01/14/21 History tablet (Nitrostat) Pain albuterol sulfate 90 mcg/actuation 2 inh inhalation Q4H PRN shortness 08/13/20 04/27/22 05/19/21 Rx aerosol inhaler of breath or wheezing #18 grams epinephrine 0.3 mg/0.3 mL 0.3 mg IM Q10M PRN Anaphylaxis 04/19/21 04/27/22 Unknown History injection, auto-injector Bone Growth Stimulator E0748 #1 ea 12/30/21 04/13/22 Unknown Rx quetiapine 50 mg tablet (Seroquel) 50 mg PO DIRECTED #90 tabs 02/09/22 04/27/22 Unknown Rx trazodone 150 mg tablet 150 mg PO BEDTIME #60 tabs 02/21/22 04/27/22 Unknown Rx Intraoperative Neuromonitoring #1 ea 04/21/22 Unknown Rx oxycodone 5 mg tablet 5 - 10 mg PO Q6H PRN pain 7 days 04/27/22 Unknown Rx #30 tabs Allergies Allergy/AdvReac Type Severity Reaction Status Date / Time venom-wasp Allergy Severe ALGY-Anaphy Verified 04/13/22 14:19 laxis aspirin Allergy Unknown Unknown Verified 04/13/22 14:19 Cephalosporins Allergy Unknown Unknown Verified 04/13/22 14:19 NSAIDS (Non-Steroidal Allergy Unknown Unknown Verified 04/13/22 14:19 Anti-Inflamma sumatriptan [From Imitrex] Allergy Unknown Unknown Verified 04/13/22 14:19 acetaminophen [From Tylenol] Allergy Unknown Verified 04/13/22 14:19 ibuprofen Allergy UNKNOWN Verified 04/13/22 14:19 [From NeoProfen (ibuprofen lysn)(PF)] metoclopramide [From Reglan] Allergy ALGY-Joint Verified 04/13/22 14:19 Pain PFS Anesthesia Medical History Alcohol use disorder, severe, dependence Anorexia nervosa, restricting type Bilateral primary osteoarthritis of hip Borderline personality disorder Cannabis dependence, continuous Chronic back pain Chronic post-traumatic stress disorder Congestive heart failure Diabetes mellitus H/O Belkys-Valenzuela syndrome (~07/2019) EGD at [facility]. EGD 10/26 negative. MONTANO (nonalcoholic steatohepatitis) Nicotine dependence, cigarettes, uncomplicated Psychiatric care Sacroiliitis Uncontrolled type 2 diabetes with neuropathy Surgical History H/O cervical spine surgery H/O colonoscopy History of esophagogastroduodenoscopy Family History Son Suicide September 2019 Other Cancer Hypertension Psychiatric illness Social History Smoking and tobacco status: former smoker (quit 2 months ago) Quit status (tobacco): has tried quititng Alcohol intake: former Former alcohol use details: 8 days sober Adopted: No Caregiver/support person: Yes (cleans and runs errands) Lives independently: No Household members: significant other Housing: Apartment Marital status: Single Number of children: 2 Number of grandchildren: 0 Highest education level completed: Associate Degree: Occupational, Technical, Vocational Program Education level details: DAVID service: No Current occupational status: disabled Pets and animals: Yes Pets & animals: cat(s) History of recent travel: No Leisure activites: music and games Sexually active: Yes Current gender identity: Female Aparna/Mandaeism: Sabianism Special aparna needs: No Agree to transfusion: Yes Financial difficulty paying for basics: Not Very Hard Female Reproductive History Date of last menstrual period: 04/09/98 Para: 2 Spontaneous abortions: Yes (10) Data Anesthesia 04/27/22 08:40 04/27/22 08:40 Short CBC 04/27/22 Range/Units 08:40 WBC 5.1 (4.0-10.0) 10^3/uL Hgb 11.8 (11.5-15.3) g/dL Hct 36.1 L (37.0-47.0) % MCV 82.2 (81-99) fl Plt Count 103 L (130-400) 10^3/cmm Neut % (Auto) 76.3 % Neut # (Auto) 3.86 (1.8-7.7) 10^3/uL BMP 04/27/22 08:40 Sodium 140 Potassium 3.6 Chloride 106 Carbon Dioxide 23 BUN 6 Creatinine 0.4 L Glucose 142 H Calcium 8.7 Cardiac Studies: Echocardiogram Ultrasound 11/17/19
[2022-05-01] VITALS (23 sets, daily range): BP systolic 81–127; BP diastolic 42–89; PULSE 81–113; RESP 14–21; TEMP 36.1–36.7; O2SAT 92–100
--- NOTE | 2022-05-01 | XR_ITS ---
WS: [id number] LUMBAR SPINE TECHNIQUE: 1 view of the lumbar spine CLINICAL INFORMATION: YA PICS COMPARISON: INTRAOPERATIVE TECHNIQUE: 3D cine obtained for intraoperative purposes. FLUOROSCOPY TIME: 12 seconds CLINICAL INFORMATION: YA PICS COMPARISON: None. FINDINGS: Fluoroscopy used for intraoperative purposes. Prior pedicle screw fixation L3-L5 with removal of inte rconnecting rods. Interbody fusion graft at L4-L5. Localizer projected over the LEFT dorsal SI joint. XR/XR lumbar spine 1V port [id number] IMPRESSION: Images obtained for intraoperative purposes.
--- NOTE | 2022-05-01 12:31 | W.PM.OPSUD ---
Surgery/Procedure H&P Update DATE OF PROCEDURE: May 01, 2022 DATE H&P PERFORMED: 04/13/22 H&P UPDATE INFORMATION: I have reviewed H&P completed within last 30 days, I have examined patient prior to procedure and No changes to prior documentation PREOP DIAGNOSIS: Lumbar 5 fracture, sacroiliac joint pain PLANNED PROCEDURE: Operation Date: 05/01/22 13:15 Proposed Procedures p Spinal Fusion Pelvis revison, L3 [id number],S32.009A, M43.16(Not Applicable) - Javed Ghosh, DO
--- NOTE | 2022-05-01 12:49 | P.ANESUD_ITS ---
Pre-Anesthetic Update Pre-Anesthetic Assessment: Date of Surgery/Procedure: 05/01/22 Preop Chelo gnosis: Lumbar 5 fracture, sacroiliac joint pain Proposed Procedure: Operation Date: 05/01/22 13:15 Proposed Procedures p Spinal Fusion Pelvis revison, L3 [id number],[id number],S32.009A, M43.16(Not Applicable) - Javed Ghosh, DO Any changes to Pre-Anesthetic Assessment?: No Last Intake: Intake Last Liquid Date 04/30/22 Last Liquid Time 17:00 Last Solid Date 04/30/22 Last Solid Time 17:00 Vitals: Temperature 97 F L 05/01/22 11:50 Temperature Source Temporal Artery S can 05/01/22 11:50 Pulse Rate 81 05/01/22 11:50 Respiratory Rate 18 05/01/22 11:50 Blood Pressure 126/69 05/01/22 11:50 Blood Pressure Yaneli n 88 05/01/22 11:50 Pulse Oximetry 99 05/01/22 11:50 Oxygen Delivery Me thod 05/01/22 11:50 Exam: Pre-Anes Outpt Exam: alert, oriented x 3, clear to auscultation bilaterally and regular rate & rhythm Cardiac Studies: Echocardiogram Ultrasound 11/17/19
[2022-05-01] MEDS: sodium chloride 0.9% 1,000 ML 30 ML IV (13:05)
[2022-05-01] MEDS: clindamycin 900 MG/50 ML PREMIX 100 MG IV ×2 (13:27→21:10)
[2022-05-01] MEDS: tranexamic acid 1,000 mg/10mL SDV 1000 MG IV (13:40)
[2022-05-01] MEDS: heparin, porcine 1,000 unit/mL INJ 10 mL 10000 UNIT IRRIGATION (15:00)
[2022-05-01] MEDS: vancomycin 1,000 MG SDV 1000 MG XX (15:01)
--- NOTE | 2022-05-01 16:44 | P.OP_ITS ---
Operative Report Date of procedure: May 01, 2022 Pre-op diagnosis: Preop Diagnosis Lumbar 5 fracture, sacroiliac joint pain Post-op diagnosis: same Procedure done: 1. L3- Pelvis posterior fusion 2. L3 to S1 intrumentation 3. Lumbopelvic fixation 4. Bone marrow aspirate right iliac crest 5. use of computer navigation/stereotactic for spine 6. removal of deep hardware from spine 7. use of allow graft Surgeon: Javed Ghosh Bacteriologist Dairy: none Estimated blood loss (mL): 600 Procedure: 1. L3- Pelvis posterior fusion 2. L3 to S1 intrumentation 3. Lumbopelvic fixation 4. Bone marrow aspirate right iliac crest 5. use of computer navigation/stereotactic for spine 6. removal of deep hardware from spine 7. use of allow graft Patient is brought to the operative suite after undergoing anesthesia was placed prone on the operating table and her neuro monitoring was attached. Patient was prepped and draped in normal sterile fashion. All areas impingement well-p added. Skin incision made using the previous skin incision. Subperiosteal dissection was made out to the screws. And the sacral ala. Retractors were placed. Bone marrow aspirate was taken from the right iliac crest. This was done using the Leilani cell bone marrow aspiration From right iliac crest 20 cc of bone marrow aspirate were placed. This was later mixed with the ostial amp. Was brought to placing the fiducial for the computer navigation. 2 pins were placed in the right iliac crest which were removed at the end of the case. And then the fiducial was attached C was brought in and spun around the patient and the submission was loaded from the computer from the C-arm into the computer. This allows for placement of pedicle screws and iliac screws with computer navigation. Extension was brought to taking the and the rods out of the patient. The caps were removed from all sick screws. And then the rods were removed. The L5 screw on the left was removed. And a 7 5 screw was used to replace it. Next attention was brought to placing the screws. The gearshift probe was then used the identify the starting point for the S1 screw the S1 pedicle was identified gearshift was placed the ball feeler pedicle feeler was used and then the screws were placed at S1. Attention was then brought to placing the sacral ala iliac screw. This was done bilaterally as was the S1 screws. The gearshift probe was used to go through the sacrum into the ala through the SI joint into the iliac crest. Pedicle feeler was used and shows no breach of the wall and then a tap was used followed by placement of the screw. This was done bilaterally once all the screws were placed the head Cole was then used to align the heads. The rods were placed attaching the L3 pedicles screws to L4 L5-S1 and the iliac screws. In order to facilitate lumbopelvic fixation. Screw caps were then tightened on the rods bilaterally the sacral ala was decorticated as was the L5 TP bilaterally and the ostium was packed in the lateral gutters. Vancomycin powder was placed in the wound and the wound was closed in layered fashion with 0 Vicryl 2-0 Vicryl and Monocryl suture. Sterile dressings were applied and patient was transferred to the PACU in stable condition.
[2022-05-01] MEDS: fentaNYL 50 mcg/mL INJ 2mL 100 MCG IVP (16:50)
[2022-05-01] MEDS: HYDROmorphone 1 mg/mL INJ 1 mL 0.5 MG IVP (17:16)
--- NOTE | 2022-05-01 17:26 | ANE.PACU2 ---
Inpatient post-anesthesia follow up: Airway intact: Yes Vital signs: Temperature 97.0 F Pulse Rate 104 Respiratory Rate 16 Blood Pressure 114/72 Pulse Oximetry 96 Oxygen Delivery Me thod Room Air Oxygen Flow Rate 10 Fraction of Inspir ed Oxygen Hydration adequate: Yes Nausea and vomiting: No Pain level: 1 Mental status: Baseline
[2022-05-01] MEDS: morphine 4 mg/mL SDV 1 mL 2 MG IVP (18:17)
[2022-05-01] MEDS: lactated ringers 1,000 ML 90 ML IV (19:16)
[2022-05-01] MEDS: ketorolac 30 mg/mL INJ IVP (19:17)
--- NOTE | 2022-05-01 19:18 | PC.NURSE ---
Patient arrived to unit via stretcher, ambulated to bed, c/o pain in back and requesting pain medication. AAOx4, soft bp with remaining VSS. at bedside. Santana in place and patent. Room clean and clutter free with call light in reach. is taking patients purse home.
[2022-05-01] MEDS: oxyCODONE 5 mg IR Tab/Cap 10 MG PO (20:05)
[2022-05-01] MEDS: quetiapine 100 mg Tablet PO (20:05)
[2022-05-01] MEDS: docusate sodium 100 mg Capsule PO (20:05)
[2022-05-01] MEDS: trazodone 150 mg Tablet PO (20:06)
--- NOTE | 2022-05-01 20:13 | PC.NURSE ---
Patient asked the dose of Oxycodone. Patient was told dose and frequency. Patient rolled her eyes. Patient's medications sat in front of her. Patient closed her eyes and appeared to be falling asleep. Patient asked to take her medications. Patient states oh, yeah. Patient again closed her eyes and appeared to be falling asleep. Patient asked again to take her medications. Patient then took them. Patient states do you have anything for anxiety, I feel like I'm having a panic attack.
[2022-05-02] VITALS (12 sets, daily range): BP systolic 95–119; BP diastolic 57–76; PULSE 60–92; RESP 14–20; TEMP 36.6–36.8; O2SAT 94–97
[2022-05-02] MEDS: oxyCODONE 5 mg IR Tab/Cap 10 MG PO ×5 (00:47→19:55)
[2022-05-02] MEDS: ketorolac 30 mg/mL INJ IVP ×2 (03:30→08:02)
[2022-05-02] MEDS: lactated ringers 1,000 ML 90 ML IV ×2 (04:28→19:56)
[2022-05-02] MEDS: clindamycin 900 MG/50 ML PREMIX 100 MG IV ×2 (04:29→14:42)
[2022-05-02] MEDS: docusate sodium 100 mg Capsule PO ×2 (08:03→17:22)
--- NOTE | 2022-05-02 08:16 | PM.PN ---
Subjective Subjective: POD 1 Pt resting comfortably. Back sore and legs better. Denies SOB,CP or LYNCH Vitals/I&O/Wt Last Vital Signs Temp 98.2 F 05/02/22 08:00 Pulse 75 05/02/22 08:00 Resp 15 05/02/22 08:00 BP 95/57 05/02/22 08:00 Pulse Ox 96 05/02/22 08:00 O2 Del Method 05/02/22 08:00 O2 Flow Rate 10 05/01/22 16:57 05/01/22 05/02/22 05/02/22 22:59 06:59 14:59 Intake Total 277 / 327 878 / 1205 Output Total 600 / 600 300 / 900 Balance -323 / -273 578 / 305 Physical Exam Narrative: Patient presents alert and oriented x3 with a good general appearance normal mood and affect. Normal coordination normal stability. Mild tenderness around the incisional site with the incision appear to be clean and dry. No signs of erythema or drainage. No signs of infection. Patient denies any fevers or chills. 5/5 motor strength both lower extremities with negative straight leg raise bilaterally. Calves are supple no medial thigh tenderness. Pulses are 2+ at the dorsalis pedis and posterior tibial region. Good capillary refill throughout normal sensation light touch both lower extremities. Urinary Catheter Management: Santana: Cath Placed During This Visit: yes Reason for Continuing Indwelling Catheter: Other Urinary Catheter Date of Insertion: 05/01/22 Urinary Catheter Time of Insertion: 13:45 Data 04/27/22 08:40 04/27/22 08:40 A&P Assessment and plan (1) Status post lumbar spinal fusion: Discontinue Santana catheter. Physical therapy to mobilize. We will have social work associate evaluate for placement. Work for discharge home today or tomorrow. Continue incentive spirometry for pulmonary toilet. We will see her back in the office in 1 week's time for a wound check. Attestations Medical Necessity Statement*: Discharge home today or tomorrow Coding Level of Care Code Acute Code for Chg Fwd Diagnoses Status post lumbar spinal fusion Z98.1
--- NOTE | 2022-05-02 08:34 | PC.PHAR ---
pt had discharge orders in and in the discharge plan said finalized-meds that weren't entered was gabapentin 300mg bid filled 04/17/22 30d/s-tizanidine 4mg tid filled 04/21/22 10d/s-hydroxyzine pamoate 50mg bid filled 04/17/22 30d/s-
--- NOTE | 2022-05-02 13:24 | PC.CHAP ---
Pastoral Care Encounter/Spiritual Assessment Type of Contact [] Declined analytics senior manager visit [] Patient/Family/Request visit [] Outpatient visit [] Follow-up visit [] Physician referral [] Code/Alert [x] Routine visit [] Staff referral [] Actively dying [] Patient sleeping [] Family support [] [] Out of room [] Palliative care [] [] Receiving care in room [] Pre-surgical visit [] Trauma [] Long length of stay [] ICU visit [] Other: Relational/Emotional Strength [] Patient feels connected with others/family/visitors/staff [] Distress [] Loneliness/isolation [] Abandonment Spirituality of Patient [x] Person of Aparna [x] Attends Faith of their [place] [] Believes in Prayer [] Reads Bible or Lutheran materials [] There are Spiritual issues to be addressed [place] Hand Interventions x Prayer [x] Active listening [] Non-anxious presence [] Spiritual/emotional support [] Crisis/trauma care [] Spiritual counseling [] Bereavement support [] Provided bereavement packet [] Provided Bible/devotional materials [] Provided toy/stuffed animal, coloring book to patient or family member [] Provided Communion [] Anointing/[place] [] Salvation [x] Completed spiritual assessment [] Other: Impact on Illness or Injury [] Angry [] Fearful [] Anxious [] Often cries [] Exhaustion [] Unable to work [] Unable to attend anglican [] Unable to walk/stand [] Unable to read [] Unable to drive [] Unable to eat/drink [] Unable to sleep [] Unable to be with family [] Patient intubated [] Other: Summary Time spent with patient 10 min
[2022-05-02] MEDS: quetiapine 25 mg Tablet 50 MG PO (15:30)
--- NOTE | 2022-05-02 19:24 | PC.NURSE ---
Patient resting in bed on bedrest throughout shift as patient was up with PT in AM and wound started seperating in the back and have large amounts of blood draining out. Notified PA, he came to assess patient. Applied pressure dressing to site and remained on bedrest. VSS, AAOx4, no other new events. Pain controlled with oral pain medication per JUN. Room clean and clutter free with call light in reach. Good UOP from balderas, tolerated diet well. REport given bedside to Brittnee.
[2022-05-02] MEDS: quetiapine 100 mg Tablet PO (19:54)
[2022-05-02] MEDS: trazodone 150 mg Tablet PO (19:55)
--- NOTE | 2022-05-02 22:27 | PC.NURSE ---
Upon log rolling patient to assess surgical site, patient began bleeding from surgical site. Dried blood noted to dressing and patient sheet. New dressing applied on top of previous dressing. Patient is bedrest. Will monitor.
[2022-05-03] VITALS (12 sets, daily range): BP systolic 121–139; BP diastolic 69–84; PULSE 88–99; RESP 15–18; TEMP 36.6–37.2; O2SAT 90–99
[2022-05-03] MEDS: oxyCODONE 5 mg IR Tab/Cap 10 MG PO ×5 (00:26→15:34)
--- NOTE | 2022-05-03 02:17 | PC.NURSE ---
Phlebomist stated to nurse She is in a lot of pain. Nurse went in to assess patient's pain and patient appeared to be sleeping. Nurse stated the patient's name and patient did not awaken. Patient has respirations. Will monitor.
[2022-05-03] MEDS: morphine 4 mg/mL SDV 1 mL 2 MG IVP ×2 (02:53→06:45)
[2022-05-03 04:35] LABS: Hematocrit 27.5 % (37.0-47.0); Hemoglobin 8.6 g/dL (11.5-15.3)
--- NOTE | 2022-05-03 05:43 | PC.NURSE ---
Dressing to back currently clean, dry, intact. So signs of bleeding at this time.
--- NOTE | 2022-05-03 05:58 | PC.NURSE ---
Patient continually c/o 10/10 pain even after receiving PRN Morphine and PRN Oxy. Dr. Ghosh notified. No new orders received.
--- NOTE | 2022-05-03 06:39 | PM.PN ---
Subjective Subjective: POD 2 Patient resting comfortably. Complains of back pain. Denies any headaches, shortness of breath or chest pain. Denies dizziness or lightheadedness. Vitals/I&O/Wt Last Vital Signs Temp 99.0 F 05/03/22 04:00 Pulse 88 05/03/22 04:00 Resp 18 05/03/22 04:44 BP 135/73 05/03/22 04:00 Pulse Ox 91 05/03/22 04:00 O2 Del Method 05/03/22 04:00 O2 Flow Rate 10 05/01/22 16:57 05/02/22 05/02/22 05/03/22 14:59 22:59 06:59 Intake Total 840 / 840 1290 / 2130 50 / 2180 Output Total 50 / 50 2800 / 2850 Balance 790 / 790 1290 / 2080 -2750 / -670 Physical Exam Narrative: Patient presents alert and oriented x3 with a good general appearance normal mood and affect. Normal coordination normal stability. Moderate tenderness around the incisional site with the incision with bloody drainage. No signs of infection. Patient denies any fevers or chills. 4/5 motor strength both lower extremities with negative straight leg raise bilaterally. Calves are supple no medial thigh tenderness. Pulses are 2+ at the dorsalis pedis and posterior tibial region. Good capillary refill throughout normal sensation light touch both lower extremities. Urinary Catheter Management: Santana: Cath Placed During This Visit: yes Reason for Continuing Indwelling Catheter: Other Urinary Catheter Date of Insertion: 05/01/22 Urinary Catheter Time of Insertion: 13:45 Data 05/03/22 04:04 04/27/22 08:40 A&P Assessment and plan (1) Status post lumbar spinal fusion: Assisted with a dressing change this morning which showed a saturation of bloody dressings. Reapplied 4 x 4's ABDs Medipore tape as well as an abdominal binder to help with compression over the incisional site to try and tamponade some of the discharge that appears to be bloody drainage. Discontinue Santana catheter after physical therapy work to mobilize. We will set her up for home health care for dressing changes. Continue incentive spirometry for pulmonary toilet. We will see her back in the office in 1 week's time. (2) Acute blood loss as cause of postoperative anemia: Attestations Medical Necessity Statement*: Discharge home later today when drainage subsides Coding Level of Care Code Acute Code for Chg Fwd Diagnoses Status post lumbar spinal fusion Z98.1 Acute blood loss as cause of postoperative anemia D62
[2022-05-03] MEDS: docusate sodium 100 mg Capsule PO ×2 (08:15→16:26)
[2022-05-03] MEDS: ketorolac 30 mg/mL INJ IVP (11:15)
[2022-05-03] MEDS: quetiapine 25 mg Tablet 50 MG PO (15:35)
--- NOTE | 2022-05-03 16:28 | PC.NURSE ---
Discharge education reviewed with patient, educated on wound care and post procedure precautions. Went over discharge paper work from physician in detail. Patient verbally acknowledges discharge plan and follow up.
--- NOTE | 2022-05-04 14:50 | P.DS_ITS ---
Discharge Providers Date of Admission: 05/01/22 18:24 Date of Discharge: May 03, 2022 Attending Provider at Admission: Javed Ghosh DO Attending Provider at Discharge: Javed Ghosh DO Primary Care Provider: Joseph Lewis MD Diagnoses at Discharge Discharge Diagnosis (1) Status post lumbar spinal fusion: Status: Acute (2) Acute blood loss as cause of postoperative anemia: Status: Acute Reason for Visit Reason for Visit: L3 Pelvis revision [id number] Hospital Course Hospital Course pain controlled Physical Exam Urinary Catheter Management: Santana: Cath Placed During This Visit: yes Reason for Continuing Indwelling Catheter: Other Urinary Catheter Date of Insertion: 05/01/22 Urinary Catheter Time of Insertion: 13:45 Discharge Data Studies Completed and Pending Completed Studies During Hospitalization Category Date Time Status XR lumbar spine 1V port [id number] Routine Exams 05/01/22 Completed Radiology Impressions Lumbar Spine X-Ray 05/01/22 00:00 IMPRESSION: Images obtained for intraoperative purposes. Laboratory Results WBC 5.1 10^3/uL (4.0-10.0) 04/27/22 08:40 RBC 4.39 10^6/uL (4.1-5.3) 04/27/22 08:40 Hgb 8.6 g/dL (11.5-15.3) L 05/03/22 04:04 Hct 27.5 % (37.0-47.0) L 05/03/22 04:04 MCV 82.2 fl (81-99) 04/27/22 08:40 MCH 26.9 pg (28.0-34.0) L 04/27/22 08:40 MCHC 32.7 g/dL (30.0-36.0) 04/27/22 08:40 RDW 16.1 % (12.1-15.1) H 04/27/22 08:40 Plt Count 103 10^3/cmm (130-400) L 04/27/22 08:40 MPV 11.2 fL (7.4-10.4) H 04/27/22 08:40 Neut % (Auto) 76.3 % 04/27/22 08:40 Lymph % (Auto) 14.8 % 04/27/22 08:40 [place]idan % (Auto) 6.3 % 04/27/22 08:40 Eos % (Auto) 1.8 % 04/27/22 08:40 Baso % (Auto) 0.4 % 04/27/22 08:40 Neut # (Auto) 3.86 10^3/uL (1.8-7.7) 04/27/22 08:40 Lymph # (Auto) 0.8 10^3/uL (0.8-4.8) 04/27/22 08:40 [place]idan # (Auto) 0.3 10^3/uL (0.2-0.9) 04/27/22 08:40 Eos # (Auto) 0.1 10^3/uL (0.0-0.8) 04/27/22 08:40 Baso # (Auto) 0.0 10^3/uL (0.0-0.1) 04/27/22 08:40 Nucleated RBC % (auto) 0 % 04/27/22 08:40 Nucleated RBCs # 0.0 /100WBC 04/27/22 08:40 Sodium 140 mmol/L (136-145) 04/27/22 08:40 Potassium 3.6 mmol/L (3.5-5.1) 04/27/22 08:40 Chloride 106 mmol/L (98-107) 04/27/22 08:40 Carbon Dioxide 23 mmol/L (22-29) 04/27/22 08:40 Anion Gap 14.6 (5-19) 04/27/22 08:40 BUN 6 mg/dL (6-20) 04/27/22 08:40 Creatinine 0.4 mg/dL (0.5-0.9) L 04/27/22 08:40 GFR Calculation 166.3 mL/min (90-130) H 04/27/22 08:40 Glucose 142 mg/dL (65-115) H 04/27/22 08:40 Calculated Osmolality 290 mOsm/kg (285-295) 04/27/22 08:40 Calcium 8.7 mg/dL (8.5-10.5) 04/27/22 08:40 Vitals Last Vital Signs Temp 98 F 05/03/22 16:23 Pulse 96 05/03/22 16:23 Resp 18 05/03/22 16:23 BP 121/69 01/25/23 16:23 Pulse Ox 99 05/03/22 16:23 O2 Del Method 05/03/22 12:00 O2 Flow Rate 10 05/01/22 16:57 Discharge Plan Discharge Patient Disposition: Home Condition: Stable Prescriptions: New oxycodone 10 mg tablet 10 mg PO Q4H PRN (Reason: pain) 7 Days Qty: 40 0RF Continued nitroglycerin [Nitrostat] 0.4 mg tablet, sublingual 0.4 mg SUBLINGUAL Q5M PRN (Reason: Chest Pain) epinephrine 0.3 mg/0.3 mL auto-injector 0.3 mg IM Q10M PRN (Reason: Anaphylaxis) Rx Instructions: for 2 doses (DME) Bone Growth Stimulator E0748 See Rx Instructions .Route .MEDSUPPLY Qty: 1 0RF Rx Instructions: As directed quetiapine [Seroquel] 50 mg tablet 50 mg PO DIRECTED Qty: 90 3RF Rx Instructions: Take one tablet at 3 pm and two tabs at bedtime trazodone 150 mg tablet 150 mg PO BEDTIME Qty: 60 3RF Rx Instructions: Take two tablets at bedtime albuterol sulfate 90 mcg/actuation HFA aerosol inhaler 2 inh INHALATION Q4H PRN (Reason: shortness of breath or wheezing) Qty: 18 0RF Discontinued oxycodone 5 mg tablet 5 - 10 mg PO Q6H PRN (Reason: pain) 7 Days Qty: 30 0RF Discharge Orders: Discharge Order (Routine); Ordered 05/03/22 Ordered By: Paulino Ojeda Referrals: Javed Ghosh DO [Physician] - 05/16/22 11:15 am Discharge Diet: Advance as tolerated Discharge Activity: Limit activity as instructed Patient Instructions: Oxycodone/Acetaminophen (By mouth), Lumbar Spinal Fusion (GEN) Activity Restrictions/Additional Instructions: Thank you for choosing [facility] for your care! The following is a list of instructions, from your provider, to follow upon your discharge to ensure you have the optimal recovery from your recent injury or surgery. Follow-up care is a long part of your treatment and safety. Be sure to make and go to all appointments and call your doctor if you are having problems. If you do not already have a follow-up appointment made, call Dr. Ghosh's] office in the next 1-3 days to make follow up appointment for 1 weeks at [phone]. It is also a good idea to know your test results and keep a list of the medicines y ou take. Medications will be prescribed for you at your provider's discretion. These medications are to be used as instructed; if they are taken more often that prescribed they will not be refilled early and in most cases will not be refilled at all. > When a refill is needed, you should contact maia boone 2-3 business days before your prescription runs out. Medications will NOT be refilled by research professional providers after hours! > Many pain medications contain Tylenol (Acetaminophen). Do not consume more than 4,000 mg of Tylenol per day in total with any combination of med ications. > Pain medications can cause constipation. Please use an over the counter stool softener as directed, while taking pain medications. Consult your local pharmacist with questions or recommendations on stool softeners. If constipation persists, contact our office or your primary care provider. > While under our care, you are not to receive pain medications or other controlled substances from any other provider unless our office is notified and approves. Any attempts to do so will result in refusal to prescribe any further pain medications and possible dismissal from our practice. ? Walking is essential for the healing process after surgery. We would like you to slowly advance your walking. This should be done on relatively flat clear ground (inside or out) or can be done on a treadmill. Remember this goal does not have to happen all at once, slowly increase your distance and duration. This can be broken into more more than one walk per day as tolerated. Patients who walk as directed after surgery rarely require Physical Therapy. In the unlikely event this issue arises your provider will direct hospital staff to make the appropriate arrangements. ? No lifting over 5 pounds {a gallon of milk) or bending/twisting until further notice. Each of these activities places an unnecessary amount of stress onto the body and can impede the delicate healing process. > Instead of bending at the waist, keep your back straight and bend at the knees. > Instead of twisting your torso, keep your back straight and turn your entire body with your feet. ? You may sleep in any position which makes you comfortable. Many patients find comfort sleeping in a reclining chair. It is not abnormal to have difficulty sleeping for the first several weeks following your surgery. We recommend trying Benadry! or Tylenol PM as directed to help with your sleeping difficulties. Both medications are over the counter and available without prescription. ? NO SMOKING!!! Smoking dramatically increases the probability of developing postoperative wound infections. ? Common complaints after lumbar and/or thoracic spine surgery include, but are not limited to: numbness and/or tingling in the legs, pain around the incision and surrounding tissues, muscle spasms, or stiffness of the middle to low back. Contact our office if these symptoms persist or if an acute change occurs. ? No driving for the first 3-5days, and not while taking narcotics until seen at your follow-up appointment and cleared. There are no restrictions for riding on short trips, however if you take a longer trip, arrangements should be made to make regular stops to get out of the vehicle and stretch . ? Swelling is an unfortunate event that will take place with any surgery and is the primary source of your postoperative discomfort. While walking and regular approved activities helps control inflammation, there are additional steps you can take to minimize swelling. > Place ice over the surgical site and surrounding tissue for twenty minutes, followed by applying a low/medium heat (heating pad) for an additional twenty minutes every 1-2 hours as needed for painrelief. > You may use of over the counter anti-inflammatory medications (Ibuprofen, Motrin, Aleve, Advil, etc) as directed on the package label. These t ypes of medicines will significantly reduce the amount of discomfort you experience after surgery from swelling. It should be noted that if you have and allergy to any of these medications, or a history of ulcers or kidney disease you should consult you primary care provider prior to starting these medications. Discharge Attestations Time Spent in Discharge Care*: less than 30 min Quality Metrics Clinical Quality Measures [ No reported AMI, CVA or VTE this stay] Coding Level of Care Code Acute Chg FW DC note Diagnoses Status post lumbar spinal fusion Z98.1 Acute blood loss as cause of postoperative anemia D62
== END 2022-05-03 16:28 | disposition home or self-care (01) | DRG 460 ==
LOC: MEDSURG 18:25
PROVIDERS: Anesthesiology; Admitting Provider Orthopaedic Surgery; PCP Family Medicine; Visit Provider Orthopaedic Surgery
PROC: 0SG107J Fusion of 2 or more Lumbar Vertebral Joints with Autologous Tissue Substitute, Posterior Approach, Anterior Column, Open Approach (ICD-10-PCS; principal; 2022-05-01 12:55)
DX: S32.059A Unspecified fracture of fifth lumbar vertebra, initial encounter for closed fracture (principal); D62 Acute posthemorrhagic anemia; W01.0XXA Fall on same level from slipping, tripping and stumbling without subsequent striking against object, initial encounter; Z79.51 Long term (current) use of inhaled steroids; F10.20 Alcohol dependence, uncomplicated; M16.0 Bilateral primary osteoarthritis of hip; F60.3 Borderline personality disorder; F12.20 Cannabis dependence, uncomplicated; G89.29 Other chronic pain; F43.12 Post-traumatic stress disorder, chronic; E11.42 Type 2 diabetes mellitus with diabetic polyneuropathy; F17.210 Nicotine dependence, cigarettes, uncomplicated; Z79.891 Long term (current) use of opiate analgesic
CPT/HCPCS: 36415; 51702; 72020; 76000; 80048; 85014; 85018; 85025; 97116; 97161; 97530; C1713; J1100; J1170; J1644; J1885; J2250; J2270; J2370; J2405; J2704; J3010; J3370; J3490; J7030; J7120

== ENCOUNTER → 2022-05-16 11:00 | Outpatient (BNVA) | payer MEDICAID, SELFPAY ==
[2021-07-26 11:33] VITALS: BP 110/72; BMI 37.9
== END ==
PROVIDERS: PCP Family Medicine; Visit Provider Physician Assistant
DX: Z98.1 Arthrodesis status (principal)
CPT/HCPCS: 72100; 99024

== ENCOUNTER → 2022-05-23 08:41 | Outpatient (BNVA) | payer MEDICAID, SELFPAY ==
[2022-05-18 16:29] VITALS: BP 110/72; BMI 37.9
== END ==
PROVIDERS: PCP Family Medicine; Visit Provider Podiatrist Foot & Ankle Surgery
DX: E11.8 Type 2 diabetes mellitus with unspecified complications (principal); E11.42 Type 2 diabetes mellitus with diabetic polyneuropathy; M21.372 Foot drop, left foot
CPT/HCPCS: 11721; 99204

== ENCOUNTER → 2022-06-22 11:02 | Outpatient (BNVA) | payer MEDICAID, SELFPAY ==
[2022-05-18 16:29] VITALS: BP 110/72; BMI 37.9
== END ==
PROVIDERS: Visit Provider Physician Assistant
DX: Z98.1 Arthrodesis status (principal); Z48.89 Encounter for other specified surgical aftercare
CPT/HCPCS: 72100; 99024

== ENCOUNTER 2022-07-03 12:20 | Outpatient (RCR) | payer MEDICARE, MEDICAID, SELFPAY ==
[2022-05-18 16:29] VITALS: BP 110/72; BMI 37.9
== END 2022-07-07 23:59 | disposition home or self-care (01) ==
LOC: SPT 12:20
PROVIDERS: PCP Family Medicine; Visit Provider Podiatrist Foot & Ankle Surgery
DX: M21.372 Foot drop, left foot (principal)
CPT/HCPCS: 97162

== ENCOUNTER 2022-07-08 06:00 | Outpatient (RCR) | payer MEDICARE, MEDICAID, SELFPAY ==
[2022-05-18 16:29] VITALS: BP 110/72; BMI 37.9
== END 2022-08-02 23:59 | disposition home or self-care (01) ==
LOC: SPT 06:00
PROVIDERS: PCP Family Medicine; Visit Provider Podiatrist Foot & Ankle Surgery
DX: M21.372 Foot drop, left foot (principal)
CPT/HCPCS: 97110; 97530

== ENCOUNTER → 2022-08-22 09:04 | Outpatient (BNVA) | payer MEDICARE, MEDICAID, SELFPAY ==
[2022-08-13 11:41] VITALS: BP 110/72; BMI 37.9
== END ==
PROVIDERS: PCP Family Medicine; Visit Provider Podiatrist Foot & Ankle Surgery
DX: M21.372 Foot drop, left foot (principal); E11.42 Type 2 diabetes mellitus with diabetic polyneuropathy
CPT/HCPCS: 99213

== ENCOUNTER 2022-08-22 14:51 | Inpatient (IN) | payer MEDICARE, MEDICAID, SELFPAY ==
[2022-08-13 11:41] VITALS: BP 110/72; BMI 37.9
[2022-08-22 14:52] VITALS: BMI 34.3
[2022-08-22 14:59] VITALS: BP 127/70; PULSE 98; RESP 18; TEMP 36.4; O2SAT 96
--- NOTE | 2022-08-22 15:03 | XRR_ITS ---
PROCEDURE INFORMATION: Exam: XR Chest Exam date and time: 08/22/2022 3:16 PM Age: 57 years old Clinical indication: Cough and dyspnea; Additional info: Dyspnea/cough TECHNIQUE: Imaging protocol: Radiologic exam of the chest. Views: 1 view. COMPARISON: CR XR chest 1V portable [id number] 06/21/2021 1:09 PM FINDINGS: Lungs: Questionable opacity along the peripheral left lung base. Pleural spaces: Unremarkable. No pleural effusion. No pneumothorax. Heart/Mediastinum: Unremarkable. No cardiomegaly. Bones/joints: ACDF and posterior spinal fusion hardware noted in the cervical spine. Visualized osseous structures are intact. XR/XR chest 1V portable [id number] IMPRESSION: Questionable opacity along the peripheral left lung base.
[2022-08-22 15:14] LABS: Add Urine Microscopic? NO; Charge for UA Resulting for Rev
[2022-08-22 15:21] LABS: Bilirubin Urine Neg (Negative); Blood Urine Neg (Negative); Glucose Urine UA Norm (Normal); Ketones Urine Negative (Negative); Leukocyte Esterase Urine Negative (Negative); Nitrate Urine Negative (Negative); Protein Urine Neg (Negative); Urine Appearance Clear (CLEAR); Urine Color Yellow (Yellow); Urobilinogen Urine Neg (Negative); pH Urine 7 (5-7)
[2022-08-22 15:32] LABS: Basophils % 0.5 %; Eosinophils # 0.1 10^3/uL (0.0-0.8); Hemoglobin 11.2 g/dL (11.5-15.3); Lymphocytes # 1.2 10^3/uL (0.8-4.8); Lymphocytes % 19.3 %; Mean Corpuscular Hemoglobin 26.4 pg (28.0-34.0); Mean Corpuscular Volume 82.5 fl (81-99); Mean Platelet Volume 10.3 fL (7.4-10.4); Monocytes # 0.5 10^3/uL (0.2-0.9); Monocytes % 7.4 %; Neutrophils # 4.32 10^3/uL (1.8-7.7); Neutrophils % 70.5 %; Nucleated Red Blood Cells % 0 %; Platelet Count 85 10^3/cmm (130-400); Red Blood Count 4.24 10^6/uL (4.1-5.3); Red Cell Distribution Width 17.8 % (12.1-15.1); White Blood Count 6.1 10^3/uL (4.0-10.0)
[2022-08-22 15:33] LABS: Amphetamines Screen Urine Negative (Negative); Barbiturates Screen Urine Negative (Negative); Benzodiazepines Screen Urine Negative (Negative); Cocaine Screen Urine Negative (Negative); Opiate Screen Urine Negative (Negative); PCP Screen Urine Negative (Negative); THC Screen Urine Positive (Negative)
--- NOTE | 2022-08-22 15:37 | W.ED.PSYCHS ---
HPI - Psych General: Chief Complaint: Psychiatric Symptoms Stated Complaint: EBENEZER KHANNA Time Seen by Provider: 08/22/22 15:02 Source: patient Mode of arrival: EMS History of Present Illness: 57-year-old female presents to the emergency room with complaints of suicidal ideation. She has chronic back pain states she has begun drinking more to manage her back pain and is now complaining of worsening back pain. She states she has had thoughts of killing herself including slash her wrist after becoming very drunk. MD complaint: suicidal ideation and feels depressed Onset (ago): day(s) Duration: constant History of same: Yes Exacerbating factors: alcohol Context: recent alcohol abuse Associated psychiatric symptoms: depression and suicidal ideation Associated symptoms: Reports depression and suicidal ideation Treatments prior to arrival: none If self harm: admits thoughts of self harm and has plan Review of Systems Const: Denies: fever(s), chills, body aches, change in appetite, fatigue or malaise ENMT: Denies: throat pain, ear or mastoid pain, nasal discharge or nasal congestion Card: Denies: chest pain, edema, dyspnea on exertion or orthopnea Resp: Denies: dyspnea, productive cough or non-productive cough GI: Denies: abdominal pain, nausea, vomiting, hematemesis, coffee ground emesis, diarrhea, constipation, bloating, hematochezia or melena : Denies: flank pain, difficulty voiding, dysuria, urinary frequency or urinary urgency Skin/Breast: Denies: rash or pruritus Psych: Reports: depression and suicidal ideation [facility] ED PFSH: Medical History Alcohol use disorder, severe, dependence Anorexia nervosa, restricting type Bilateral primary osteoarthritis of hip Borderline personality disorder Cannabis dependence, continuous Chronic back pain Chronic post-traumatic stress disorder Congestive heart failure Diabetes mellitus H/O Belkys-Valenzuela syndrome (~07/2019) EGD at [facility]. EGD 10/26 negative. Major depressive disorder, recurrent episode, moderate with anxious distress MONTANO (nonalcoholic steatohepatitis) Nicotine dependence due to vaping tobacco product Vaping nicotine Psychiatric care Sacroiliitis Uncontrolled type 2 diabetes with neuropathy Surgical History H/O cervical spine surgery H/O colonoscopy History of esophagogastroduodenoscopy Family History Son Suicide September 2019 Other Cancer Hypertension Psychiatric illness Social History Smoking and tobacco status: current every day smoker e-cigarettes E-Cigarette Details: vaporizer device and with nicotine E-cig/vape details: 6000 puffs in each device, uses 3 per month Quit status (tobacco): has quit using tobacco Alcohol intake: former Former alcohol use details: 8 days sober Substance/Drug Use: former Adopted: No Caregiver/support person: Yes (cleans and runs errands) Lives independently: No Household members: significant other Housing: Apartment Marital status: Single Number of children: 2 Number of grandchildren: 0 Highest education level completed: Associate Degree: Occupational, Technical, Vocational Program Education level details: [facility] service: No Current occupational status: disabled Current occupational exposures/hazards: No Pets and animals: Yes Pets & animals: cat(s) Leisure activites: music and games Sexually active: Yes How many partners: 1 Are you practicing safe sex: No Do you think of yourself as: Straight/Heterosexual Current gender identity: Female Aparna/Pentecostalism: Mosque Special aparna needs: No Agree to transfusion: Yes Financial difficulty paying for basics: Not Very Hard Female Reproductive History: Para: 2 Spontaneous abortions: Yes (10) Physical Exam Const: COMMON NORMALS: no acute distress GENERAL APPEARANCE: cooperative and comfortable ORIENTATION/CONSCIOUSNESS: Yes awake, Yes oriented to person, Yes oriented to place and Yes oriented to time HENMT: COMMON NORMALS: normocephalic, atraumatic and hearing grossly normal bilaterally HEAD & SCALP: normocephalic and atraumatic Resp: COMMON NORMALS: normal respiratory effort, No retractions, No use of accessory muscles and clear to auscultation bilaterally AUSCULTATION: clear to auscultation bilaterally Cardio: COMMON NORMALS: regular rate, regular rhythm and No murmurs present (Cardio) RATE: regular rate RHYTHM: regular rhythm GI: COMMON NORMALS: Soft to palpation and No hepatosplenomegaly present AUSCULTATION: Yes normoactive bowel sounds PALPATION: Yes Soft to palpation, No Tenderness to palpation present (GI), No Guarding due to palpation present (GI) and Yes No hepatosplenomegaly present Extremity: COMMON NORMALS: normal to inspection, capillary refill normal, no clubbing, cyanosis or edema, no calf tenderness and no pedal edema Neuro: SENSORIUM/ORIENTATION: Yes oriented to person, Yes oriented to place and Yes oriented to time Skin: COMMON NORMALS: no rashes or lesions noted GENERAL SKIN EXAM: no rashes or lesions noted Course Vital Signs: Vital signs: Vital Signs Temperature 98.4 F 08/22/22 16:52 Pulse Rate 73 08/22/22 16:52 Respiratory Rate 16 08/22/22 16:52 Blood Pressure 122/78 08/22/22 16:52 Pulse Oximetry 99 08/22/22 16:52 Oxygen Delivery Me thod Room Air 08/22/22 16:52 MDM - Psych Medical Decision Making Patient is not acutely intoxicated at this time she wishes to be admitted for suicidal ideation discussed Dr. levy orders written. Labs reviewed. Medically cleared to return her transaminases are slightly elevated suspect is related to her recent alcohol use. Medical Records I reviewed the patient's medical records. Lab Data I reviewed the patient's lab results. 08/22/22 15:27 08/22/22 15:27 Radiology Impressions Chest X-Ray 08/22/22 15:03 IMPRESSION: Questionable opacity along the peripheral left lung base. Laboratory Results WBC 6.1 10^3/uL (4.0-10.0) 08/22/22 15: RBC 4.24 10^6/uL (4.1-5.3) 08/22/22 15: Hgb 11.2 g/dL (11.5-15.3) L 08/22/22 15: Hct 35.0 % (37.0-47.0) L 08/22/22 15:27 MCV 82.5 fl (81-99) 08/22/22 15: MCH 26.4 pg (28.0-34.0) L 08/22/22 15: MCHC 32.0 g/dL (30.0-36.0) 08/22/22 15: RDW 17.8 % (12.1-15.1) H 08/22/22 15: Plt Count 85 10^3/cmm (130-400) L 08/22/22 15:27 MPV 10.3 fL (7.4-10.4) 08/22/22 15: Neut % (Auto) 70.5 % 08/22/22 15: Lymph % (Auto) 19.3 % 08/22/22 15: [place] % (Auto) 7.4 % 08/22/22 15: Eos % (Auto) 2.0 % 08/22/22 15: Baso % (Auto) 0.5 % 08/22/22: Neut # (Auto) 4.32 10^3/uL (1.8-7.7) 08/22/22 15: Lymph # (Auto) 1.2 10^3/uL (0.8-4.8) 08/22/22: [place] # (Auto) 0.5 10^3/uL (0.2-0.9) 08/22/22: Eos # (Auto) 0.1 10^3/uL (0.0-0.8) 08/22/22: Baso # (Auto) 0.0 10^3/uL (0.0-0.1) 08/22/22: Nucleated RBC % (auto) 0 % 08/22/22: Nucleated RBCs # 0.0 /100WBC 08/22/22 15: Sodium 141 mmol/L (136-145) 08/22/22 15: Potassium 3.2 mmol/L (3.5-5.1) L 08/22/22 15: Chloride 106 mmol/L (98-107) 08/22/22 15: Carbon Dioxide 25 mmol/L (22-29) 08/22/22 15: Anion Gap 13.2 (5-19) 08/22/22 15: BUN 3 mg/dL (6-20) L 08/22/22 15:27 Creatinine 0.4 mg/dL (0.5-0.9) L 08/22/22 15: GFR Calculation 165.7 mL/min (90-130) H 08/22/22 15:27 Glucose 125 mg/dL (65-115) H 08/22/22 15: Calculated Osmolality 290 mOsm/kg (285-295) 08/22/22 15:27 Calcium 8.6 mg/dL (8.5-10.5) 08/22/22 15:27 Total Bilirubin 1.2 mg/dL (0.15-1.2) 08/22/22 15:27 AST 88 U/L (0-32) H 08/22/22 15:27 ALT 41 U/L (0-33) H 08/22/22 15:27 Alkaline Phosphatase 177 U/L (35-105) H 08/22/22 15:27 Total Protein 5.6 g/dL (6.6-8.7) L 08/22/22 15:27 Albumin 3.2 g/dL (3.5-5.2) L 08/22/22 15:27 Globulin 2.4 g/dL (1.3-4.6) 08/22/22 15:27 Urine Color Yellow (Yellow) 08/22/22 15:11 Urine Appearance Clear (CLEAR) 08/22/22 15:11 Urine pH 7 (5-7) 08/22/22 15:11 Ur Specific [place] 1.010 (1.005-1.030) 08/22/22 15:11 Urine Protein Neg (Negative) 08/22/22 15:11 Urine Glucose (UA) Norm (Normal) 08/22/22 15:11 Urine Ketones Negative (Negative) 08/22/22 15:11 Urine Blood Neg (Negative) 08/22/22 15:11 Urine Nitrate Negative (Negative) 08/22/22 15:11 Urine Bilirubin Neg (Negative) 08/22/22 15:11 Urine Urobilinogen Neg mg/dL (Negative) 08/22/22 15:11 Ur Leukocyte Esterase Negative (Negative) 08/22/22 15:11 Salicylates < 0.3 mg/dL (3-10) L 08/22/22 15:27 Urine Opiates Screen Negative ng/mL (Negative) 08/22/22 15:11 Acetaminophen < 5.0 ug/mL (10-30) L 08/22/22 15:27 Ur Barbiturates Screen Negative ng/mL (Negative) 08/22/22 15:11 Ur Phencyclidine Scrn Negative ng/mL (Negative) 08/22/22 15:11 Ur Amphetamines Screen Negative ng/mL (Negative) 08/22/22 15:11 U Benzodiazepines Scrn Negative ng/mL (Negative) 08/22/22 15:11 Urine Cocaine Screen Negative ng/mL (Negative) 08/22/22 15:11 U Marijuana (THC) Screen Positive ng/mL (Negative) H 08/22/22 15:11 Ethyl Alcohol 137 mg/dL (0-10) H 08/22/22 15:27 Discharge Plan Discharge Patient Disposition: Admitted As Inpatient Admit Provider: Manjit Looney Clinical Impression: Suicidal ideation, Alcohol use disorder, severe, dependence, Cannabis dependence, continuous Condition: Stable Coding Level of Care Code ED Cost Recorder for Rober Arellano
[2022-08-22 15:58] LABS: Alanine Aminotransferase 41 U/L (0-33); Albumin Level 3.2 g/dL (3.5-5.2); Alcohol Level 137 mg/dL (0-10); Alkaline Phosphatase 177 U/L (35-105); Anion Gap 13.2 (5-19); Aspartate Amino Transferase 88 U/L (0-32); Blood Urea Nitrogen 3 mg/dL (6-20); Calcium 8.6 mg/dL (8.5-10.5); Carbon Dioxide 25 mmol/L (22-29); Chloride 106 mmol/L (98-107); Globulin 2.4 g/dL (1.3-4.6); Glomerular Filtration Rate 165.7 mL/min (90-130); Glucose 125 mg/dL (65-115); Osmolality Calculated 290 mOsm/kg (285-295); Potassium 3.2 mmol/L (3.5-5.1); Sodium 141 mmol/L (136-145); Total Bilirubin 1.2 mg/dL (0.15-1.2); Total Protein 5.6 g/dL (6.6-8.7)
--- NOTE | 2022-08-22 15:58 | ECG_ITS ---
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 Measurements Intervals [place] Rate: 76 P: 27 AK: 164 QRS: 20 QRSD: 88 T: 21 QT: 397 QTc: 448 Interpretive Statements SINUS RHYTHM POSSIBLE RIGHT VENTRICULAR CONDUCTION DELAY [RSR (QR) IN V1/V2] SEPTAL MYOCARDIAL INFARCTION , OF INDETERMINATE AGE [40+ ms Q WAVE IN V1/V2] Compared to ECG 06/21/2021 15:41:04 Myocardial infarct finding now present Electronically Signed On 08-22-2022 16:52:12 CDT by Joel Garza M.D. [email or web address]
[2022-08-22 16:08] LABS: Acetaminophen < 5.0 ug/mL (10-30); Salicylate < 0.3 mg/dL (3-10)
[2022-08-22 16:52] VITALS: BP 122/78; PULSE 73; RESP 16; TEMP 36.9; O2SAT 99
[2022-08-22] MEDS: LORazepam 2 mg Tablet PO (17:29)
[2022-08-22 17:53] VITALS: BP 122/78; PULSE 73; RESP 18; TEMP 36.9; O2SAT 99
[2022-08-22] MEDS: levoFLOXacin 500 mg Tablet PO (19:13)
[2022-08-22] MEDS: trazodone 150 mg Tablet PO (19:24)
[2022-08-22 22:00] VITALS: BP 104/62; PULSE 85; RESP 17; TEMP 36.3; O2SAT 98
[2022-08-23 05:51] VITALS: RESP 16
[2022-08-23] MEDS: levoFLOXacin 500 mg Tablet PO (06:06)
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
[2022-08-23] MEDS: folic acid 1 mg Tablet PO (08:55)
[2022-08-23] MEDS: potassium chloride ER 20 mEq Tablet PO ×2 (08:55→20:16)
[2022-08-23] MEDS: multivitamin therapeutic Tablet 1 TAB PO (08:55)
[2022-08-23] MEDS: thiamine 100 mg Tablet PO (08:55)
[2022-08-23] MEDS: naltrexone hcl 50 mg Tablet 25 MG PO ×2 (10:29→20:16)
[2022-08-23] MEDS: duloxetine 60 mg Capsule PO (10:29)
[2022-08-23] MEDS: hyDROXYzine 25 mg Capsule 50 MG PO ×2 (10:29→20:18)
[2022-08-23] MEDS: levoFLOXacin 250 mg Tablet PO (10:32)
[2022-08-23] MEDS: nicotine 21 mg Patch 1 PATCH TRANSDERMA (11:30)
[2022-08-23 14:00] VITALS: BP 142/86; PULSE 118; RESP 18; TEMP 36.6; O2SAT 97
[2022-08-23] MEDS: trazodone 150 mg Tablet PO (20:16)
[2022-08-23] MEDS: OLANZapine 5 mg ODT PO (20:19)
[2022-08-23] MEDS: haloperidol 5 mg Tablet PO (21:11)
[2022-08-23] MEDS: trazodone 50 mg Tablet PO ×2 (21:14→21:58)
[2022-08-23 22:00] VITALS: BP 117/67; PULSE 83; RESP 18; TEMP 37; O2SAT 97
[2022-08-24 05:58] VITALS: RESP 17
[2022-08-24] MEDS: levoFLOXacin 750 mg Tablet PO (06:24)
[2022-08-24] MEDS: multivitamin therapeutic Tablet 1 TAB PO (09:39)
[2022-08-24] MEDS: duloxetine 60 mg Capsule PO (09:39)
[2022-08-24] MEDS: thiamine 100 mg Tablet PO (09:39)
[2022-08-24] MEDS: naltrexone hcl 50 mg Tablet 25 MG PO ×2 (09:39→18:11)
[2022-08-24] MEDS: folic acid 1 mg Tablet PO (09:39)
[2022-08-24] MEDS: potassium chloride ER 20 mEq Tablet PO ×2 (09:39→18:11)
[2022-08-24 14:00] VITALS: BP 120/76; PULSE 107; RESP 18; TEMP 36.8; O2SAT 99
--- NOTE | 2022-08-24 15:34 | P.NPUPN_ITS ---
Subjective NPU Subjective: Patient presented today reporting that she came to the hospital secondary to the pressure mounting in the anniversary. Of the of her son and Mother's Day. 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 She reports that [place] and she has plenty of family and supports but that she started having suicidal ideation and that she had a worse than usual drinking spell. She reports that her drinking has been mostly under control and that she may be has a couple of drinks once a week. But she reports that when he gets to this time of year she just struggles. We discussed rehab but also discussed programming at [facility] and she reports a commitment to do the programming that have been discussed with her to focus on mental health and addiction/dual diagnosis on an outpatient basis. We discussed the likelihood of discharge in the next 48 hours. Mental Status Exam MSE Comments: This is an obese, white female in the hospital scrubs with some slight imbalance in her gait with limited grooming but appropriate eye contact. No abnormal movements, except for mild psychomotor retardation and a gait issues.? Cooperative with exam in mild distress. Speech was normal rate and slightly dec reased volume. Mood described as getting better; affect slightly subdued. Thought process, organized. Thought content: patient denied suicidal or homicidal ideation, there were no delusions reported or noted, patient denied any auditory or visual hallucinations. Attention and concentration, appeared intact and memory was appeared reliable but none were formally tested. She is alert and oriented times three. Insight and judgment are limited but improving. Impulse control is limited. Vitals/I&O/Wt Last Vital Signs Temp 98.6 F 08/23/22 22:00 Pulse 83 08/23/22 22:00 Resp 17 08/24/22 05:58 BP 117/67 08/23/22 22:00 Pulse Ox 97 08/23/22 22:00 O2 Del Method Room Air 08/23/22 22:00 Data NPU 08/22/22 15:27 08/22/22 15:27 A&P Assessment and plan (1) Depression: (2) Suicidal ideation: (3) Alcohol use disorder, severe, dependence: (4) Borderline personality disorder: Plan This is a 57-year-old white female with multiple inpatient hospitalizations with a history of PTSD depression and borderline personality disorder admitted with suicidal ideation in the context of her use of alcohol with poor coping skills. She may benefit from changes in her medication to target her depression and to target her alcohol use as well. 1.? ? Engage? patient in individual ,milieu, and group therapy ?2. ? Reconciliation of medications as necessary with resumption of antidepressants with likely increase in Cymbalta to 60 mg daily. ?3. ? TO-15 minute checks on the unit. ?4.? Recommend sober living treatment at the highest level of care to which the patient is willing to commit. 5. ? CIWA protocol, patient may benefit from a trial of naltrexone oral to target alcohol cravings. Involuntary Hold Information 96 Hour Hold: 96 Hour Involuntary Admission: No Attestations NPU Medical Necessity Statement*: Inpatient hospitalization is medically necessary and deemed to be the clinically appropriate intervention at this time. We will monitor and initiate medications while making changes as indicated. Likely length of stay is 1-3 days. Coding Level of Care Code Acute Code for [facility] Diagnoses Depression F32.A Suicidal ideation R45.851 Alcohol use disorder, severe, dependence F10.20 Borderline personality disorder F60.3
[2022-08-24] MEDS: hyDROXYzine 25 mg Capsule 50 MG PO (15:52)
[2022-08-24] MEDS: nicotine 21 mg Patch 1 PATCH TRANSDERMA (17:26)
[2022-08-24] MEDS: trazodone 150 mg Tablet PO (20:43)
[2022-08-24] MEDS: OLANZapine 5 mg ODT PO (20:44)
[2022-08-24 22:00] VITALS: BP 110/71; PULSE 77; RESP 18; TEMP 36.6; O2SAT 96
[2022-08-25 06:00] VITALS: RESP 16
[2022-08-25] MEDS: levoFLOXacin 750 mg Tablet PO (08:28)
[2022-08-25] MEDS: multivitamin therapeutic Tablet 1 TAB PO (08:28)
[2022-08-25] MEDS: folic acid 1 mg Tablet PO (08:28)
[2022-08-25] MEDS: duloxetine 60 mg Capsule PO (08:28)
[2022-08-25] MEDS: naltrexone hcl 50 mg Tablet 25 MG PO (08:29)
[2022-08-25] MEDS: thiamine 100 mg Tablet PO (08:29)
[2022-08-25] MEDS: potassium chloride ER 20 mEq Tablet PO (08:29)
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
--- NOTE | 2022-08-25 12:39 | DCPLANNER ---
IMM was printed and explained and give to pt and copy put in file.
[2022-08-25 13:10] VITALS: BP 110/70; PULSE 93; RESP 16; TEMP 36.7; O2SAT 98
== END 2022-08-25 14:22 | disposition home or self-care (01) | DRG 881 ==
LOC: ER 15:39 → NP 17:41
PROVIDERS: Admitting Provider Psychiatry & Neurology Psychiatry; Emergency Provider Family Medicine; PCP Family Medicine; Visit Provider Psychiatry & Neurology Psychiatry
DX: F32.A Depression, unspecified (principal); R45.851 Suicidal ideations; G89.29 Other chronic pain; M54.9 Dorsalgia, unspecified; E11.40 Type 2 diabetes mellitus with diabetic neuropathy, unspecified; F43.12 Post-traumatic stress disorder, chronic; K75.81 Nonalcoholic steatohepatitis (NASH); I50.9 Heart failure, unspecified; F10.20 Alcohol dependence, uncomplicated; F12.20 Cannabis dependence, uncomplicated; F60.3 Borderline personality disorder; F17.290 Nicotine dependence, other tobacco product, uncomplicated; M21.372 Foot drop, left foot; Z62.810 Personal history of physical and sexual abuse in childhood
CPT/HCPCS: 71045; 80053; 80306; 80307; 81003; 85025; 93005; 97150; 97165; 99213; 99238; 99285

== ENCOUNTER → 2022-09-14 15:22 | Outpatient (BNVA) | payer MEDICARE, OTHER, SELFPAY ==
[2022-08-13 11:41] VITALS: BP 110/72; BMI 37.9
== END ==
PROVIDERS: Visit Provider Nurse Practitioner Psychiatric/Mental Health
DX: Z03.89 Encounter for observation for other suspected diseases and conditions ruled out (principal); F33.3 Major depressive disorder, recurrent, severe with psychotic symptoms
CPT/HCPCS: 81001

== ENCOUNTER 2022-10-26 21:08 | Emergency (ER) | payer MEDICARE, MEDICAID, SELFPAY ==
[2022-08-13 11:41] VITALS: BP 110/72; BMI 37.9
[2022-10-26 21:11] VITALS: BMI 28.1
--- NOTE | 2022-10-26 21:11 | XRR_ITS ---
PROCEDURE INFORMATION: Exam: XR Left Ankle Exam date and time: 10/26/2022 9:18 PM Age: 57 years old Clinical indication: Pain; Ankle; Left; Additional info: Injury TECHNIQUE: Imaging protocol: Radiologic exam of the left ankle. Views: 3 or more views. COMPARISON: No relevant prior studies available. FINDINGS: Bones/joints: Distal Achilles tendon degenerative calcification. Small calcified heel spur. Lateral malleolar soft tissue swelling. Soft tissues: See Bones/joints finding. XR/XR ankle LT min 3V* [id number] IMPRESSION: 1. Distal Achilles tendon degenerative calcification. 2. Small calcified heel spur. 3. Lateral malleolar soft tissue swelling.
[2022-10-26 21:20] VITALS: BP 115/68; PULSE 76; RESP 18; TEMP 36.9; O2SAT 96
--- NOTE | 2022-10-26 21:49 | XRR_ITS ---
PROCEDURE INFORMATION: Exam: XR Left Hand Exam date and time: 10/26/2022 9:54 PM Age: 57 years old Clinical indication: Pain; Hand; Left; Additional info: Hand pain post fall TECHNIQUE: Imaging protocol: Radiologic exam of the left hand. Views: 3 or more views. COMPARISON: No relevant prior studies available. FINDINGS: Bones/joints: Mild diffuse interphalangeal joint osteoarthritis. Soft tissues: Normal. XR/XR hand LT 2V [id number] IMPRESSION: 1. Negative for fracture or dislocation. 2. Mild diffuse interphalangeal joint osteoarthritis.
--- NOTE | 2022-10-26 22:00 | W.ED.EXTPRO ---
HPI - Extremity Problem General: Chief complaint: Extremity Injury, Lower Stated complaint: Lt Ankle Pain Time Seen by Provider: 10/26/22 21:44 History of Present Illness: 57-year-old female comes in today with injury to the left hand and the left ankle. Patient states that she tripped over her feet this afternoon injuring her ankle and hand. Patient has some bruising noted to the dorsal hand at the fifth metacarpal without any significant swelling. Patient also has some swelling noted to her left ankle with distal pulses intact. Review of Systems General: Reports: 10 or more systems reviewed and unremarkable except in HPI and below Musc: Reports: extremity pain [facility] PFSH: Medical History (Updated 10/26/22 @ 22:08 by ALBIN Helms) Alcohol use disorder, severe, dependence Anorexia nervosa, restricting type Bilateral primary osteoarthritis of hip Borderline personality disorder Cannabis dependence, continuous Chronic back pain Chronic post-traumatic stress disorder Congestive heart failure Diabetes mellitus H/O Belkys-Valenzuela syndrome (~07/2019) EGD at [facility]. EGD 10/26 negative. Major depressive disorder, recurrent, severe with psychotic symptoms MONTANO (nonalcoholic steatohepatitis) Nicotine dependence due to vaping tobacco product Vaping nicotine Psychiatric care Sacroiliitis Suicidal ideation Uncontrolled type 2 diabetes with neuropathy Surgical History H/O cervical spine surgery H/O colonoscopy History of esophagogastroduodenoscopy Family History Son Suicide September 2019 Other Cancer Hypertension Psychiatric illness Social History Smoking and tobacco status: current every day smoker e-cigarettes E-Cigarette Details: vaporizer device and with nicotine E-cig/vape details: 6000 puffs in each device, uses 3 per month Quit status (tobacco): has quit using tobacco Alcohol intake: former Former alcohol use details: 8 days sober Substance/Drug Use: former Adopted: No Caregiver/support person: Yes (cleans and runs errands) Lives independently: No Household members: significant other Housing: Apartment Marital status: Single Number of children: 2 Number of grandchildren: 0 Highest education level completed: Associate Degree: Occupational, Technical, Vocational Program 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 service: No Current occupational status: disabled Current occupational exposures/hazards: No Pets and animals: Yes Pets & animals: cat(s) Leisure activites: music and games Sexually active: Yes How many partners: 1 Are you practicing safe sex: No Do you think of yourself as: Straight/Heterosexual Current gender identity: Female Aparna/Adventism: Gnosticist Special aparna needs: No Agree to transfusion: Yes Financial difficulty paying for basics: Not Very Hard Female Reproductive History: Para: 2 Spontaneous abortions: Yes (10) Physical Exam Const: COMMON NORMALS: alert HENMT: COMMON NORMALS: normocephalic HEAD & SCALP: normocephalic Neck/C-Spine: COMMON NORMALS: full ROM Resp: COMMON NORMALS: normal respiratory effort and clear to auscultation bilaterally AUSCULTATION: clear to auscultation bilaterally Cardio: COMMON NORMALS: regular rate and regular rhythm RATE: regular rate RHYTHM: regular rhythm Extremity: COMMON NORMALS: full ROM LEFT UPPER EXTREMITY: Yes hand & digits (Bruising and tenderness of the MCP joint fifth digit) LEFT LOWER EXTREMITY: Yes ankle joint (Joint line tenderness with mild swelling, distal pulses intact) Neuro: SENSORIUM/ORIENTATION: Yes alert Skin: COMMON NORMALS: turgor normal GENERAL SKIN EXAM: turgor normal Course Vital Signs: Vital signs: Vital Signs Temperature 98.4 F 10/26/22 21:20 Pulse Rate 76 10/26/22 21:20 Respiratory Rate 18 10/26/22 21:20 Blood Pressure 115/68 10/26/22 21:20 Pulse Oximetry 96 10/26/22 21:20 Oxygen Delivery Me thod Room Air 10/26/22 21:20 MDM - Extremity (Nontraumatic) Medical Decision Making 57-year-old female comes in today for complaints of injury to the left hand and left ankle. On exam patient has mild swelling and tenderness along the joint line of the left ankle. Distal pulses and sensation are intact. Patient also has some dorsal bruising and tenderness of the MCP joint of the fifth digit. Distal cap refill and sensation intact. Differential diagnosis includes fracture, sprain, contusion, dislocation. X-rays noted no fractures of the ankle or hand. Reviewed exam with patient with recommendations for treatment for contusion and sprain. Patient reported understanding. Lab Data Radiology Impressions Ankle X-Ray 10/26/22 21:11 IMPRESSION: 1. Distal Achilles tendon degenerative calcification. 2. Small calcified heel spur. 3. Lateral malleolar soft tissue swelling. Hand X-Ray 10/26/22 21:49 IMPRESSION: 1. Negative for fracture or dislocation. 2. Mild diffuse interphalangeal joint osteoarthritis. Discharge Plan Discharge Patient Disposition: Home Clinical Impression: Fall from slip, trip, or stumble Qualifiers: Encounter type: initial encounter Qualified Code(s): W01.0XXA - Fall on same level from slipping, tripping and stumbling without subsequent striking against object, initial encounter Contusion of left hand including fingers Qualifiers: Encounter type: initial encounter Qualified Code(s): S60.222A - Contusion of left hand, initial encounter Left ankle sprain Qualifiers: Encounter type: initial encounter Involved ligament of ankle: unspecified ligament Qualified Code(s): S93.402A - Sprain of unspecified ligament of left ankle, initial encounter Condition: Stable Prescriptions: No Action (DME) [place] AFO to the left See Rx Instructions .Route .MEDSUPPLY Qty: 1 0RF Rx Instructions: As directed nitroglycerin [Nitrostat] 0.4 mg tablet, sublingual 0.4 mg SUBLINGUAL Q5M PRN (Reason: Chest Pain) epinephrine 0.3 mg/0.3 mL auto-injector 0.3 mg IM Q10M PRN (Reason: Anaphylaxis) Rx Instructions: for 2 doses olanzapine [Zyprexa Zydis] 5 mg tablet,disintegrating 5 mg PO BID Qty: 30 3RF Rx Instructions: Take one tablet twice per day sublingual DO NOT TAKE MEDICATION IF CONSUMING ALCOHOL trazodone 300 mg tablet 300 mg PO BEDTIME Qty: 30 3RF Rx Instructions: Take one tablet at bedtime (DME) Diabetic Shoes with 3 pairs of inserts See Rx Instructions .Route .MEDSUPPLY Qty: 1 0RF Rx Instructions: As directed HOME albuterol sulfate 90 mcg/actuation HFA aerosol inhaler 2 inh INHALATION Q4H PRN (Reason: shortness of breath or wheezing) Qty: 18 0RF tizanidine 4 mg Capsule 4 mg PO Q8H PRN (Reason: Muscle Spasm) Women's 50 Plus Multivitamin 400 mcg-500 mg calcium-20 mcg Tablet 1 tab PO DAILY Klor-Con M20 20 mEq Tablet,Er Particles/Crystals 20 meq PO BID 30 Days Qty: 60 1RF Vitamin B-1 (mononitrate) 100 mg Tablet 100 mg PO DAILY 30 Days Qty: 30 1RF Discharge Orders: Discharge ED (Routine); Ordered 10/26/22 Ordered By: Migue Churchill Referrals: Joseph Lewis MD [Primary Care Provider] - Discharge Diet: Usual diet Discharge Activity: Increase activity as tolerated Patient Instructions: Ankle Sprain (ED), Contusion in Adults (ED) Activity Restrictions/Additional Instructions: Use an elastic bandage to the hand and/or ankle as needed for pain and discomfort. Use acetaminophen and ibuprofen for further pain relief. Use ice packs for further swelling and bruising. Follow-up with primary care for further instructions. Return to ED for new concerns. Coding Level of Care Code ED Haz[employer]ous [employer] Driver for Rober Arellano
== END 2022-10-26 22:17 | disposition home or self-care (01) ==
PROVIDERS: Emergency Provider Nurse Practitioner Family; PCP Family Medicine
DX: S93.402A Sprain of unspecified ligament of left ankle, initial encounter (principal); S60.222A Contusion of left hand, initial encounter; F17.290 Nicotine dependence, other tobacco product, uncomplicated; I50.9 Heart failure, unspecified; E11.9 Type 2 diabetes mellitus without complications; W01.0XXA Fall on same level from slipping, tripping and stumbling without subsequent striking against object, initial encounter
CPT/HCPCS: 73120; 73610; 99283

== ENCOUNTER 2022-12-04 11:54 | Outpatient (CLI) | payer MEDICARE, MEDICAID, SELFPAY ==
[2022-08-13 11:41] VITALS: BP 110/72; BMI 37.9
[2022-12-04 13:42] LABS: Estmated Average Glucose 94; Hemoglobin A1C 4.9 % (4.0-6.0)
== END 2022-12-04 11:55 | disposition home or self-care (01) ==
PROVIDERS: Visit Provider Nurse Practitioner Psychiatric/Mental Health
DX: Z79.899 Other long term (current) drug therapy (principal)
CPT/HCPCS: 36415; 80307; 83036

== ENCOUNTER → 2023-01-24 15:35 | Outpatient (BNVA) | payer MEDICARE, MEDICAID, SELFPAY ==
[2022-08-13 11:41] VITALS: BP 110/72; BMI 37.9
== END ==
PROVIDERS: Visit Provider Family Medicine
DX: I50.9 Heart failure, unspecified (principal); L98.9 Disorder of the skin and subcutaneous tissue, unspecified; L30.9 Dermatitis, unspecified; Z23 Encounter for immunization; Z79.899 Other long term (current) drug therapy
CPT/HCPCS: 80053; 80061; 82746; 83550; 84439; 84443; 85025; 86705; 86706; 86709; 86803; 87340

== ENCOUNTER 2023-02-05 15:00 | Oncology outpatient (recurring) (ONCR) | payer MEDICARE, MEDICAID, SELFPAY ==
[2022-08-13 11:41] VITALS: BP 110/72; BMI 37.9
[2023-02-02 10:10] VITALS: BP 117/75; PULSE 80; RESP 17; TEMP 37.2; O2SAT 97
[2023-02-02] MEDS: sodium chloride 0.9% 250 ML 75 ML IV (10:15)
[2023-02-02] MEDS: iron sucrose 200 MG in sodium chloride 0.9% (100 ml) 100 ML 220 MG IV (10:16)
[2023-02-02 10:50] VITALS: BP 140/83; PULSE 73; RESP 16; TEMP 36.8; O2SAT 96
[2023-02-05] MEDS: iron sucrose 200 MG in sodium chloride 0.9% (100 ml) 100 ML 220 MG IV (15:58)
[2023-02-05 16:48] VITALS: BP 132/70; PULSE 88; RESP 17; O2SAT 99
== END 2023-02-06 23:59 | disposition home or self-care (01) ==
PROVIDERS: PCP Family Medicine; Visit Provider Family Medicine
DX: D50.9 Iron deficiency anemia, unspecified (principal)
CPT/HCPCS: 96365; J1756; J7050

== ENCOUNTER 2023-02-07 01:13 | Emergency (ER) | payer MEDICARE, MEDICAID, SELFPAY ==
[2022-08-13 11:41] VITALS: BP 110/72; BMI 37.9
[2023-02-07 01:20] VITALS: BP 148/89; PULSE 81; RESP 18; TEMP 36.7; O2SAT 93; BMI 35.3
--- NOTE | 2023-02-07 01:23 | W.ED.GENADLT ---
HPI - General Adult General: Stated complaint: Blood port bleeding Time Seen by Provider: 02/07/23 01:17 Source: patient Mode of arrival: ambulatory Limitations: no limitations History of Present Illness: 57-year-old female who had had IV placed yesterday for iron infusions. She states infusion center left in place because she has another 1 scheduled for today she states that tonight though she started having some bleeding at the site and went to have the IV checked she does not pain or fever Associated symptoms: Deny chest pain, dyspnea, headache(s) or rash Review of Systems Const: Denies: fever(s), chills, body aches or change in appetite ENMT: Denies: throat pain or dental pain Card: Denies: chest pain Resp: Denies: dyspnea GI: Denies: abdominal pain Musc: Denies: neck pain or back pain Skin/Breast: Denies: rash Neuro: Denies: headache(s) PFSH ED PFSH: Medical History Alcohol use disorder, severe, dependence reports last use 11/03/22 Anorexia nervosa, restricting type Bilateral primary osteoarthritis of hip Borderline personality disorder Cannabis dependence, continuous Cannabis dependence, episodic use Reports last use November 03, 2022 Chronic back pain Chronic post-traumatic stress disorder Congestive heart failure Diabetes mellitus H/O Belkys-Valenzuela syndrome (~07/2019) EGD at [facility]. EGD 10/26 negative. Major depressive disorder, recurrent, severe with psychotic symptoms MONTANO (nonalcoholic steatohepatitis) Nicotine dependence due to vaping tobacco product Vaping nicotine Psychiatric care Sacroiliitis Suicidal ideation Uncontrolled type 2 diabetes with neuropathy Surgical History H/O cervical spine surgery H/O colonoscopy History of esophagogastroduodenoscopy Family History Son Suicide September 2019 Other Cancer Hypertension Psychiatric illness Social History Smoking and tobacco/nicotine status: current every day tobacco/nicotine user e-cigarettes E-Cigarette Details: vaporizer device and with nicotine E-cig/vape details: 6000 puffs in each device, uses 3 per month Quit status (tobacco/nicotine): has quit using Alcohol intake: former Former alcohol use details: 8 days sober Substance/Drug Use: former Adopted: No Caregiver/support person: Yes (cleans and runs errands) Lives independently: No Household members: significant other Housing: Apartment Marital status: Single Number of children: 2 Number of grandchildren: 0 Highest education level completed: Associate Degree: Occupational, Technical, Vocational Program 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 service: No Current occupational status: disabled Current occupational exposures/hazards: No Pets and animals: Yes Pets & animals: cat(s) Leisure activites: music and games Sexually active: Yes How many partners: 1 Are you practicing safe sex: No Do you think of yourself as: Straight/Heterosexual Current gender identity: Female Aparna/Gnosticism: Sikh Special aparna needs: No Agree to transfusion: Yes Female Reproductive History: Para: 2 Spontaneous abortions: Yes (10) Physical Exam Const: COMMON NORMALS: no acute distress and patient oriented x3 HENMT: COMMON NORMALS: normocephalic and atraumatic HEAD & SCALP: normocephalic and atraumatic Eye: COMMON NORMALS: conjunctivae normal CONJUNCTIVA: Yes conjunctivae normal Neck/C-Spine: COMMON NORMALS: supple Chest: COMMONS NORMALS: normal inspection of the chest Resp: COMMON NORMALS: normal respiratory effort Extremity: NARRATIVE EXTREMITY EXAM: IVs placed in right AC is taped down she does have very slight bleeding at the site but most IV catheter is hanging out at this point Neuro: COMMON NORMALS: patient oriented x3 Psych: COMMON NORMALS: mental status grossly normal MDM - General Adult Medical Decision Making Patient presents here to have her IV checked she had minimal bleeding but the IV catheter is dislodged did attempt to flush it it did not flushed we just pulled the IV as it is no longer functioning she is to follow-up later today with the transfusion center Medical Records I reviewed the patient's medical records. No radiology studies performed this visit Discharge Plan Discharge Patient Disposition: Home Clinical Impression: IV infusion line dysfunction Condition: Stable Prescriptions: No Action (DME) [place] AFO to the left See Rx Instructions .Route .MEDSUPPLY Qty: 1 0RF Rx Instructions: As directed nitroglycerin [Nitrostat] 0.4 mg tablet, sublingual 0.4 mg SUBLINGUAL Q5M PRN (Reason: Chest Pain) epinephrine 0.3 mg/0.3 mL auto-injector 0.3 mg IM Q10M PRN (Reason: Anaphylaxis) Rx Instructions: for 2 doses trazodone 100 mg tablet 100 mg PO DIRECTED Qty: 90 2RF Rx Instructions: Take one tablet with 300 mg tab 30 min prior to bedtime trazodone 300 mg tablet 300 mg PO DIRECTED Qty: 90 2RF Rx Instructions: Take one tablet with 100 mg tablet 30 min prior to bedtime hydrocortisone acetate 0.5 % cream 1 applic topical BID PRN (Reason: skin irritation) Qty: 28.4 0RF Rx Instructions: apply twice daily x 7 days max for FACE hydrocortisone acetate 0.5 % cream 1 applic topical BID PRN (Reason: skin irritation) Qty: 28.4 0RF Rx Instructions: apply twice daily x 7 days max for FACE Injectafer 100 mg iron/2 mL solution 750 mg IV Q7D Qty: 2 0RF Women's 50 Plus Multivitamin 400 mcg-500 mg calcium-20 mcg Tablet 1 tab PO DAILY Vitamin B-1 (mononitrate) 100 mg Tablet 100 mg PO DAILY 30 Days Qty: 30 1RF Discharge Orders: Discharge ED (Routine); Ordered 02/07/23 Ordered By: Carmela Haro Referrals: Tam Del Valle MD [Primary Care Provider] - Discharge Diet: Advance as tolerated Discharge Activity: Resume usual activity Coding Level of Care Code ED Elementary School Teacher for Rober Arellano
[2023-02-07 01:33] VITALS: BP 120/86; PULSE 80; RESP 18; O2SAT 94
== END 2023-02-07 01:35 | disposition home or self-care (01) ==
PROVIDERS: Emergency Provider Emergency Medicine; PCP Family Medicine
DX: T82.524A Displacement of infusion catheter, initial encounter (principal); Y82.8 Other medical devices associated with adverse incidents; F17.290 Nicotine dependence, other tobacco product, uncomplicated; I50.9 Heart failure, unspecified; E11.40 Type 2 diabetes mellitus with diabetic neuropathy, unspecified
CPT/HCPCS: 99282

== ENCOUNTER 2023-02-26 13:00 | Oncology outpatient (recurring) (ONCR) | payer MEDICARE, MEDICAID, SELFPAY ==
[2022-08-13 11:41] VITALS: BP 110/72; BMI 37.9
[2023-02-07 15:20] VITALS: BP 121/72; PULSE 74; RESP 16; TEMP 36.7; O2SAT 99
[2023-02-07] MEDS: iron sucrose 200 MG in sodium chloride 0.9% (100 ml) 100 ML 220 MG IV (16:08)
[2023-02-07 16:43] VITALS: BP 132/80; PULSE 67; TEMP 36.4; O2SAT 99
--- NOTE | 2023-02-09 11:42 | PC.NURSE ---
Patient scheduled today for infusion of iron. Multiple attempts were made to establish IV access without success. Discussed with patient to reschedule infusion for 02/12/23. Patient was educated to hydrate prior to infusion and verbalized understanding.
[2023-02-22] MEDS: iron sucrose 200 MG in sodium chloride 0.9% (100 ml) 100 ML 220 MG IV (16:06)
[2023-02-22 16:53] VITALS: BP 115/68; PULSE 80; TEMP 36.8; O2SAT 97
[2023-02-26] MEDS: sodium chloride 0.9% 250 ML 75 ML IV (13:34)
[2023-02-26] MEDS: iron sucrose 200 MG in sodium chloride 0.9% (100 ml) 100 ML 220 MG IV (13:53)
[2023-02-26 14:54] VITALS: BP 124/81; PULSE 108; RESP 18; TEMP 36.6; O2SAT 99
== END 2023-03-08 23:59 | disposition home or self-care (01) ==
PROVIDERS: PCP Family Medicine; Visit Provider Family Medicine
DX: D50.9 Iron deficiency anemia, unspecified (principal)
CPT/HCPCS: 96365; J1756; J7050

== ENCOUNTER 2023-02-27 13:03 | Emergency (ER) | payer MEDICARE, MEDICAID, SELFPAY ==
[2022-08-13 11:41] VITALS: BP 110/72; BMI 37.9
[2023-02-27 13:13] VITALS: BP 186/92; PULSE 117; RESP 30; O2SAT 95; BMI 36.3
--- NOTE | 2023-02-27 13:18 | W.ED.GENADLT ---
HPI - General Adult General: Chief complaint: Anxiety Stated complaint: Anxiety Time Seen by Provider: 02/27/23 13:10 Source: patient and EMS Mode of arrival: EMS Limitations: no limitations History of Present Illness: Patient is a 57-year-old female with history of depression, personality disorder, PTSD, substance abuse, and congestive heart failure who presents to the emergency department via EMS complaining of anxiety onset 5 days. Patient states she has been taking prednisone for skin condition for the past 5 days, and has since developed symptoms of palpitations, trembling, anxiety, shortness of breath, and cold intolerance. She has never had these symptoms before and has never had issues with prednisone in the past. She states that she is very anxious which has exacerbated her symptoms. She has no history of thyroid disorder, but states she had an iron infusion yesterday for chronic anemia. She denies any chest pain, abdominal pain, dizziness, lightheadedness, or any other symptoms. EMS states they did not give her anything in route. Onset (ago): day(s) (5) Associated symptoms: Reports dyspnea, palpitations and short of breath; Deny chest pain, headache(s), malaise or rash Review of Systems Const: Denies: fever(s), chills, fatigue or malaise Card: Reports: palpitations; Denies: chest pain or edema Resp: Reports: dyspnea; Denies: productive cough GI: Denies: abdominal pain : Denies: dysuria, urinary frequency or urinary urgency Musc: Denies: neck pain or back pain Skin/Breast: Denies: rash Neuro: Denies: headache(s), sensory changes or dizziness Psych: Reports: anxiety, panic attacks and other (Reports tremulousness) Endo: Reports: cold intolerance PFSH ED PFSH: Medical History Alcohol use disorder, severe, dependence in early remission, last use 11/03/22 Bilateral primary osteoarthritis of hip Borderline personality disorder Cannabis dependence, episodic use In early remission, last use 11/03/22 Chronic back pain Chronic post-traumatic stress disorder Congestive heart failure Diabetes mellitus H/O Belkys-Valenzuela syndrome (~07/2019) EGD at [facility]. EGD 10/26 negative. Major depressive disorder, recurrent, severe with psychotic symptoms MONTANO (nonalcoholic steatohepatitis) Nicotine dependence due to vaping tobacco product Vaping nicotine Psychiatric care Sacroiliitis Suicidal ideation Uncontrolled type 2 diabetes with neuropathy Surgical History H/O cervical spine surgery H/O colonoscopy History of esophagogastroduodenoscopy Family History Son Suicide September 2019 Other Cancer Hypertension Psychiatric illness Social History Smoking and tobacco/nicotine status: current every day tobacco/nicotine user e-cigarettes E-Cigarette Details: vaporizer device and with nicotine E-cig/vape details: 6000 puffs in each device, uses 3 per month Quit status (tobacco/nicotine): has quit using Alcohol intake: former Former alcohol use details: 8 days sober Substance/Drug Use: former Adopted: No Caregiver/support person: Yes (cleans and runs errands) Lives independently: No Household members: significant other Housing: Apartment Marital status: Single Number of children: 2 Number of grandchildren: 0 Highest education level completed: Associate Degree: Occupational, Technical, Vocational Program Education level details: [facility] service: No Current occupational status: disabled Current occupational exposures/hazards: No Pets and animals: Yes Pets & animals: cat(s) Leisure activites: music and games Sexually active: Yes How many partners: 1 Are you practicing safe sex: No Do you think of yourself as: Straight/Heterosexual Current gender identity: Female Aparna/Protestant: Religious Special aparna needs: No Agree to transfusion: Yes Female Reproductive History: Para: 2 Spontaneous abortions: Yes (10) Physical Exam Const: GENERAL APPEARANCE: cooperative, in distress (Tremulous and hyperventilating) and anxious ORIENTATION/CONSCIOUSNESS: Yes awake, Yes oriented to person, Yes oriented to place and Yes oriented to time HENMT: COMMON NORMALS: normocephalic, atraumatic and hearing grossly normal bilaterally HEAD & SCALP: normocephalic and atraumatic MOUTH: Normal oral and palatal mucosa present THROAT: posterior oropharynx normal Eye: COMMON NORMALS: Equal, round and reactive pupils present, EOMs intact bilaterally and conjunctivae normal CONJUNCTIVA: Yes conjunctivae normal PUPIL: Yes Equal, round and reactive pupils present Neck/C-Spine: COMMON NORMALS: full ROM and no JVD Resp: COMMON NORMALS: No retractions and clear to auscultation bilaterally EFFORT & INSPECTION: No able to speak in complete sentences, Yes symmetric chest movement and Yes tachypneic AUSCULTATION: clear to auscultation bilaterally, no crackles, no rales, no rhonchi and no wheezes Cardio: COMMON NORMALS: no JVD, regular rhythm, S1 normal heart sound present, S2 normal heart sound present, No gallops present (Cardio), No clicks present (Cardio), No murmurs present (Cardio), No rub (Cardio) and Peripheral pulses 2+ throughout RATE: tachycardic RHYTHM: regular rhythm HEART SOUNDS: S1 normal heart sound present and S2 normal heart sound present PERIPHERAL PULSES: Peripheral pulses 2+ throughout GI: COMMON NORMALS: Soft to palpation and No hepatosplenomegaly present AUSCULTATION: Yes normoactive bowel sounds PALPATION: Yes Soft to palpation, No Tenderness to palpation present (GI), No Guarding due to palpation present (GI) and Yes No hepatosplenomegaly present Extremity: COMMON NORMALS: normal to inspection, capillary refill normal, no clubbing, cyanosis or edema, no calf tenderness and no pedal edema Neuro: SENSORIUM/ORIENTATION: Yes oriented to person, Yes oriented to place and Yes oriented to time Skin: COMMON NORMALS: no rashes or lesions noted GENERAL SKIN EXAM: no rashes or lesions noted Course Vital Signs: Vital signs: Vital Signs Pulse Rate 105 H 02/27/23 13:53 Respiratory Rate 24 H 02/27/23 13:53 Blood Pressure 164/76 02/27/23 13:53 Pulse Oximetry 93 02/27/23 13:53 Oxygen Delivery Me thod Room Air 02/27/23 13:53 MDM - General Adult Medical Decision Making Labs reviewed EKG shows no acute ST changes. Patient has hyperventilating with respiratory alkalosis. Reviewed findings with the patient. automotive technician instructor found that her primary care doctor had seen her head planned on centigram and hydroxyzine inadvertently sent in hydralazine within a minute or 2 after sending in the hydralazine according to the auto trial it looks like he changed it to hydroxyzine as intended for anxiety. Unfortunately the patient was dispensed hydralazine at the pharmacy. She did take a single pill. Discussed with the patient while this was not the medicine that Dr. Russell had intended and arguably helped she was hypertensive while she was here might likely have been even more so had she not taken the hydralazine. Unfortunately reviewed with her the hydralazine does not really help with anxiety but will lower blood pressure. We checked at the pharmacy they do have the hydroxyzine prescription there. Advised the patient not to take the hydralazine but go ahead and use the hydroxyzine as prescribed by Dr. Mahan follow-up with him within the next week to review blood pressure to see if he wishes to have her take anything in addition to our at higher doses than she currently is for blood pressure. Return if she has further problems. Medical Records I reviewed the patient's medical records. Lab Data I reviewed the patient's lab results. Laboratory Results Specimen Type Arterial 02/27/23 13:25 Sample Site Brachial, right 02/27/23 13:25 ABG pH 7.50 (7.35-7.45) H 02/27/23 13:25 ABG pCO2 26.7 mmHg (35-45) L 02/27/23 13:25 ABG pO2 100.0 mmHg (80.0-100.0) 02/27/23 13:25 ABG PO2/FiO2 Ratio 0 02/27/23 13:25 ABG HCO3 20.8 mmol/L (22-26) L 02/27/23 13:25 ABG O2 Saturation 98.7 02/27/23 13:25 ABG Base Excess -1.2 mmol/L (-2.0-2.0) 02/27/23 13:25 Bhupendra Test N/a 02/27/23 13:25 A-a O2 Gradient 1.9 mmHg (5-10) L 02/27/23 13:25 Hematocrit 37.7 % (37-47) 02/27/23 13:25 Hgb O2 Saturation 97.5 % (95-100) 02/27/23 13:25 Carboxyhemoglobin 0.8 %THgb (0.4-20.1) 02/27/23 13:25 Methemoglobin 0.3 % (0.4-1.5) L 02/27/23 13:25 Total Hemoglobin 12.3 g/dL (12-16) 02/27/23 13:25 Sodium 139.0 mmol/L (131-143) 02/27/23 13:25 Potassium 3.3 mmol/L (3.5-5.0) L 02/27/23 13:25 Glucose 189.0 mg/dL (70-115) H 02/27/23 13:25 Ionized Calcium 1.2 mmol/L (1.1-1.4) 02/27/23 13:25 O2 Delivery Device Room air 02/27/23 13:25 FiO2 21.0 % 02/27/23 13:25 Shoeshiner ID Amh 02/27/23 13:25 No radiology studies performed this visit Discharge Plan Discharge Patient Disposition: Home Clinical Impression: Hyperventilation, Acute anxiety, Elevated blood pressure reading Condition: Stable Prescriptions: No Action (DME) [place] AFO to the left See Rx Instructions .Route .MEDSUPPLY Qty: 1 0RF Rx Instructions: As directed epinephrine 0.3 mg/0.3 mL auto-injector 0.3 mg IM Q10M PRN (Reason: Anaphylaxis) Rx Instructions: for 2 doses prednisone 20 mg tablet 40 mg PO DAILY 5 Days Qty: 10 0RF Rx Instructions: for 5 days (rx filled 02/23/23) minocycline 100 mg capsule 100 mg PO BID Qty: 60 0RF hydroxyzine pamoate [Vistaril] 50 mg capsule 50 mg PO BID PRN (Reason: anxiety) Qty: 60 3RF Women's 50 Plus Multivitamin 400 mcg-500 mg calcium-20 mcg Tablet 1 tab PO DAILY hydralazine 25 mg tablet 25 mg PO TID tizanidine 4 mg tablet 4 mg PO TID PRN (Reason: Muscle Spasm) Nitrostat 0.4 mg Tablet, Sublingual 0.4 mg SUBLINGUAL Q5M PRN (Reason: Chest Pain) Rx Instructions: do not exceed 3 doses per episode trazodone 100 mg tablet 100 mg PO BEDTIME Rx Instructions: take with 300 mg tab to =400mg 30 min prior to bedtime trazodone 300 mg tablet 300 mg PO BEDTIME Rx Instructions: take with 100 mg tablet to =400mg 30 min prior to bedtime Injectafer 100 mg iron/2 mL solution See Rx Instructions .ROUTE .COMPLEX Rx Instructions: as directed Tylenol 325 mg Tablet 650 mg PO Q6H PRN (Reason: Pain) Discharge Orders: Discharge ED (Routine); Ordered 02/27/23 Ordered By: Gee Huertas Referrals: Tam Del Valle MD [Primary Care Provider] - Discharge Diet: Usual diet Discharge Activity: Resume usual activity Patient Instructions: Opioid Safety, Pain Management Activity Restrictions/Additional Instructions: Thank you for choosing [facility] for your healthcare needs today. Please realize this is an emergency room and that we are providing you with a medical screening exam and this may not be complete and all inclusive of all the testing and or work up that you may need to determine your ailment or severity of your illness. It is very important that you follow up as instructed or that you return to the Emergency Department should you have concerns or if your condition changes or worsens in any way. Recommend not taking the hydralazine until you follow-up with Dr. Del Valle. Go to the pharmacy and supervisor picking crew the hydroxyzine that was prescribed to use that as needed for anxiety. Your blood pressure was elevated in the emergency room you should monitor this and reviewed with Dr. Ramos within the next week. Coding Level of Care Code ED Other Sports Coach Or Instructor for Rober Arellano
[2023-02-27 13:22] VITALS: BP 190/86; PULSE 114; RESP 16; O2SAT 95; O2SAT 96
[2023-02-27 13:36] LABS: ABG PCO2 26.7 mmHg (35-45); Alveolar-Arterial Oxygen Gradi 1.9 mmHg (5-10); Arterial Blood Gas Hematocrit 37.7 % (37-47); Base Excess ABG -1.2 mmol/L (-2.0-2.0); Blood Gas Operator Identificat AMH; Blood Gas Sample Site Brachial, right; Blood Gas Sample Type Arterial; Carboxyhemoglobin 0.8 %THgb (0.4-20.1); HCO3 ABG 20.8 mmol/L (22-26); HGB O2 Sat 97.5 % (95-100); Ionized Calcium Level - ABG 1.2 mmol/L (1.1-1.4); Methemoglobin 0.3 % (0.4-1.5); Oxygen Device ROOM AIR; Oxygen Saturation ABG 98.7; PO2 FiO2 Ratio Arterial Blood 0; Potassium Level - ABG 3.3 mmol/L (3.5-5.0); Total Hemoglobin 12.3 g/dL (12-16)
[2023-02-27 13:53] VITALS: BP 164/76; PULSE 105; RESP 24; O2SAT 93
--- NOTE | 2023-02-27 14:08 | ECG_ITS ---
[facility] Test Date: 2023-02-27 Pat Name: Kay Calles Department: Room: Gender: Female Branch Operations Specialist: : [id number] Requested By: Gee Manning Order Number: [id number] Reading MD: Jun Ham M.D. Measurements Intervals [place] Rate: 104 P: 54 SD: 152 QRS: 25 QRSD: 68 T: 45 QT: 358 QTc: 473 Interpretive Statements SINUS TACHYCARDIA No other abnormality noted Compared to previous EKG 06/21/2021, heart rate is fast Electronically Signed On 02-27-2023 14:29:[address] by Jun Ham M.D. [email or web address] [email or web address] memorial hospitalNitol [id number]
--- NOTE | 2023-02-27 14:25 | PC.PHAR ---
pt states she takes care of her own medications-pt states she doesnt take her imdur mono er 30mg daily filled 02/14/23 30d/s-pt has hydralazine 25mg tid filled 02/23/23 #30 10d/s dr carr wrote rx on 02/23/23 13:46 then dced 13:51 and wrote rx for hydroxyzine pamoate 50mg bid prn- audit history shows dates and times-
[2023-02-27] MEDS: LORazepam 2 mg Tablet PO (14:43)
[2023-02-27 14:44] VITALS: BP 150/72; PULSE 103; RESP 16; O2SAT 95
[2023-02-27 15:29] VITALS: BP 131/88; PULSE 91; RESP 16; O2SAT 94
== END 2023-02-27 15:00 | disposition home or self-care (01) ==
PROVIDERS: Emergency Provider Family Medicine; PCP Family Medicine
DX: F41.9 Anxiety disorder, unspecified (principal); R06.4 Hyperventilation; R03.0 Elevated blood-pressure reading, without diagnosis of hypertension; F17.290 Nicotine dependence, other tobacco product, uncomplicated; I50.9 Heart failure, unspecified; E11.40 Type 2 diabetes mellitus with diabetic neuropathy, unspecified
CPT/HCPCS: 36600; 80051; 82330; 82805; 93005; 93010; 99284

== ENCOUNTER 2023-03-18 13:50 | Emergency (ER) | payer MEDICARE, MEDICAID, SELFPAY ==
[2022-08-13 11:41] VITALS: BP 110/72; BMI 37.9
[2023-03-18 13:51] VITALS: BMI 53.5
[2023-03-18 13:57] VITALS: BP 126/80; PULSE 58; RESP 17; TEMP 37.1; O2SAT 97
[2023-03-18 14:39] VITALS: PULSE 63; RESP 14; O2SAT 100
--- NOTE | 2023-03-18 14:42 | W.ED.ALCOHOL ---
HPI - Alcohol General: Chief Complaint: Alcohol Stated Complaint: AMS; ETOH Time Seen by Provider: 03/18/23 13:56 History of Present Illness: 57-year-old female presents emergency department via EMS personnel with complaints of a panic attack and back pain. She states she has chronic back pain. EMS personnel states that the patient does appear to be intoxicated, but the patient states that she did not have any alcohol. She denies chest pain or shortness of breath. She denies headache, nuchal rigidity, she denies recent trauma or injury. She denies nausea vomiting dizziness or lightheaded feeling. She denies suicidal ideation or homicidal ideation. She denies self-harm. She does endorse recent marijuana usage. Initially, the patient appeared to be very drowsy upon arrival. Associated symptoms: Deny suicidal ideation Review of Systems General: Reports: 10 or more systems reviewed and unremarkable except in HPI and below Psych: Reports: anxiety; Denies: suicidal ideation or homicidal ideation [facility] ED PFSH: Medical History Alcohol use disorder, severe, dependence in early remission, last use 11/03/22 Bilateral primary osteoarthritis of hip Borderline personality disorder Cannabis dependence, episodic use In early remission, last use 11/03/22 Chronic back pain Chronic post-traumatic stress disorder Congestive heart failure Diabetes mellitus H/O Belkys-Valenzuela syndrome (~07/2019) EGD at [facility]. EGD 10/26 negative. Major depressive disorder, recurrent, severe with psychotic symptoms MONTANO (nonalcoholic steatohepatitis) Nicotine dependence due to vaping tobacco product Vaping nicotine Psychiatric care Sacroiliitis Suicidal ideation Uncontrolled type 2 diabetes with neuropathy Surgical History H/O cervical spine surgery H/O colonoscopy History of esophagogastroduodenoscopy Family History Son Suicide September 2019 Other Cancer Hypertension Psychiatric illness Social History Smoking and tobacco/nicotine status: current every day tobacco/nicotine user e-cigarettes E-Cigarette Details: vaporizer device and with nicotine E-cig/vape details: 6000 puffs in each device, uses 3 per month Quit status (tobacco/nicotine): has quit using Alcohol intake: former Former alcohol use details: 8 days sober Substance/Drug Use: former Adopted: No Caregiver/support person: Yes (cleans and runs errands) Lives independently: No Household members: significant other Housing: Apartment Marital status: Single Number of children: 2 Number of grandchildren: 0 Highest education level completed: Associate Degree: Occupational, Technical, Vocational Program 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 service: No Current occupational status: disabled Current occupational exposures/hazards: No Pets and animals: Yes Pets & animals: cat(s) Leisure activites: music and games Sexually active: Yes How many partners: 1 Are you practicing safe sex: No Do you think of yourself as: Straight/Heterosexual Current gender identity: Female Aparna/Gnosticist: Congregational Special aparna needs: No Agree to transfusion: Yes Female Reproductive History: Para: 2 Spontaneous abortions: Yes (10) Physical Exam Narrative: EXAM NARRATIVE: Constitutional: the patient appears well nourished and of normal development. Vital signs as documented. No acute distress at present. Initially the patient appeared drowsy and does smell of an intoxicating beverage. After approximately 10 minutes of being in the emergency department she is alert and oriented-to person, place, time and situation. Head, eyes, ears, nose, mouth, throat: Normocephalic, atraumatic. Pupils-equal, round, reactive to light. No scleral icterus. Normal-appearing external ears. Normal appearing nasal turbinates, no drainage. No obvious oral lesions, posterior oropharynx without erythema or exudates. Neck: Supple, trachea is midline, no lymphadenopathy, no jugular venous distension, thyromegaly, or carotid bruits. Carotid upstrokes are brisk bilaterally. Lungs: clear to auscultation to all lung zacarias. Symmetrical rise and fall of chest, no obvious signs of increased work of breathing at present. Cardiac: Regular rate and rhythm, positive S1, S2. No murmurs, rubs or gallops that I can appreciate Abdomen: Soft, non-tender to palpation, normal active bowel sounds to all quadrants. No palpable masses, no organomegaly and abdominal bruits. Extremities: 2+ pulses in the upper extremities that are equal bilaterally, 2+ pulses in the lower extremities that are equal bilaterally. Non-edematous. Moves all extremities well, sensation to all extremities are noted. Skin: Warm, dry, intact. Course Vital Signs: Vital signs: Vital Signs Temperature 98.7 F 03/18/23 13:57 Pulse Rate 97 03/18/23 17:20 Respiratory Rate 14 03/18/23 14:39 Blood Pressure 126/80 03/18/23 13:57 Pulse Oximetry 98 03/18/23 17:20 Oxygen Delivery Me thod Room Air 03/18/23 14:39 MDM - Alcohol Medical Decision Making Physical exam completed and documented, I will obtain a CBC. Differential Diagnosis Likely alcohol intoxication and alcohol withdrawal syndrome Medical Records I reviewed the patient's medical records. Lab Data I reviewed the patient's lab results. 03/18/23 13:30 03/18/23 13:30 Laboratory Results WBC 5.71 10^3/uL (3.29-11.43) 03/18/23 13:30 RBC 4.20 10^6/uL (3.85-5.65) 03/18/23 13:30 Hgb 12.10 g/dL (11.27-16.99) 03/18/23 13:30 Hct 36.5 % (36-47) 03/18/23 13:30 MCV 86.9 fl (85-98) 03/18/23 13:30 MCH 28.8 pg (27-33) 03/18/23 13:30 MCHC 33.2 g/dL (30-55) 03/18/23 13:30 RDW 20.3 % (12.1-15.1) H 03/18/23 13:30 Plt Count 112 10^3/cmm (157-399) L 03/18/23 13:30 MPV 10.0 fL (7.4-10.4) 03/18/23 13:30 Neut % (Auto) 69.2 % 03/18/23 13:30 Lymph % (Auto) 21.2 % 03/18/23 13:30 Banner % (Auto) 7.0 % 03/18/23 13:30 Eos % (Auto) 1.9 % 03/18/23 13:30 Baso % (Auto) 0.5 % 03/18/23 13:30 Neut # (Auto) 3.95 10^3/uL (1.8-7.7) 03/18/23 13:30 Lymph # (Auto) 1.2 10^3/uL (0.8-4.8) 03/18/23 13:30 Banner # (Auto) 0.4 10^3/uL (0.2-0.9) 03/18/23 13:30 Eos # (Auto) 0.1 10^3/uL (0.0-0.8) 03/18/23 13:30 Baso # (Auto) 0.0 10^3/uL (0.0-0.1) 03/18/23 13:30 Nucleated RBC % (auto) 0 % 03/18/23 13:30 Nucleated RBCs # 0.0 /100WBC 03/18/23 13:30 Sodium Cancelled 03/18/23 13:30 Potassium Cancelled 03/18/23 13:30 Chloride Cancelled 03/18/23 13:30 Carbon Dioxide Cancelled 03/18/23 13:30 Anion Gap Cancelled 03/18/23 13:30 BUN Cancelled 03/18/23 13:30 Creatinine Cancelled 03/18/23 13:30 GFR Calculation Cancelled 03/18/23 13:30 Glucose Cancelled 03/18/23 13:30 Calculated Osmolality Cancelled 03/18/23 13:30 Calcium Cancelled 03/18/23 13:30 Total Bilirubin Cancelled 03/18/23 13:30 AST Cancelled 03/18/23 13:30 ALT Cancelled 03/18/23 13:30 Alkaline Phosphatase Cancelled 03/18/23 13:30 Total Protein Cancelled 03/18/23 13:30 Albumin Cancelled 03/18/23 13:30 Globulin Cancelled 03/18/23 13:30 Procalcitonin Cancelled 03/18/23 13:30 Salicylates Cancelled 03/18/23 13:30 Acetaminophen Cancelled 03/18/23 13:30 Ethyl Alcohol Cancelled 03/18/23 13:30 No radiology studies performed this visit Discharge Plan Discharge Patient Disposition: Home Clinical Impression: Anxiety Condition: Stable Prescriptions: No Action (DME) [place] AFO to the left See Rx Instructions .Route .MEDSUPPLY Qty: 1 0RF Rx Instructions: As directed epinephrine 0.3 mg/0.3 mL auto-injector 0.3 mg IM Q10M PRN (Reason: Anaphylaxis) Rx Instructions: for 2 doses prednisone 20 mg tablet 40 mg PO DAILY 5 Days Qty: 10 0RF Rx Instructions: for 5 days (rx filled 02/23/23) minocycline 100 mg capsule 100 mg PO BID Qty: 60 0RF hydroxyzine pamoate [Vistaril] 50 mg capsule 50 mg PO BID PRN (Reason: anxiety) Qty: 60 3RF Women's 50 Plus Multivitamin 400 mcg-500 mg calcium-20 mcg Tablet 1 tab PO DAILY hydralazine 25 mg tablet 25 mg PO TID tizanidine 4 mg tablet 4 mg PO TID PRN (Reason: Muscle Spasm) Nitrostat 0.4 mg Tablet, Sublingual 0.4 mg SUBLINGUAL Q5M PRN (Reason: Chest Pain) Rx Instructions: do not exceed 3 doses per episode trazodone 100 mg tablet 100 mg PO BEDTIME Rx Instructions: take with 300 mg tab to =400mg 30 min prior to bedtime trazodone 300 mg tablet 300 mg PO BEDTIME Rx Instructions: take with 100 mg tablet to =400mg 30 min prior to bedtime Injectafer 100 mg iron/2 mL solution See Rx Instructions .ROUTE .COMPLEX Rx Instructions: as directed Tylenol 325 mg Tablet 650 mg PO Q6H PRN (Reason: Pain) Discharge Orders: Discharge ED (Routine); Ordered 03/18/23 Ordered By: Ramiro Starr Referrals: Tam Del Valle MD [Primary Care Provider] - Discharge Diet: Advance as tolerated Discharge Activity: Resume usual activity Patient Instructions: Opioid Safety, Pain Management Activity Restrictions/Additional Instructions: Activity Restrictions/Additional Instructions: Thank you for choosing [facility] for your healthcare needs today. Please realize that you were seen in the Emergency Department and that we are providing you with an emergency medical screening exam and this may not be a complete and all inclusive of all the testing and or medical work-up that you may need to determine your ailment or severity of your illness. It is very important that you follow-up as instructed with your Primary care provider or Specialist for additional evaluation and to discuss your medical treatment plan. You may return to the Emergency Department should you have concerns or if your condition changes or worsens in any way. Coding Level of Care Code ED Senior Information Security Architect for Rober Arellano
[2023-03-18 14:55] LABS: Basophils % 0.5 %; Eosinophils # 0.1 10^3/uL (0.0-0.8); Eosinophils % 1.9 %; Hematocrit 36.5 % (36-47); Lymphocytes # 1.2 10^3/uL (0.8-4.8); Lymphocytes % 21.2 %; Mean Corpuscular HGB Conc 33.2 g/dL (30-55); Mean Corpuscular Hemoglobin 28.8 pg (27-33); Mean Corpuscular Volume 86.9 fl (85-98); Monocytes # 0.4 10^3/uL (0.2-0.9); Neutrophils # 3.95 10^3/uL (1.8-7.7); Neutrophils % 69.2 %; Nucleated Red Blood Cells % 0 %; Platelet Count 112 10^3/cmm (157-399); Red Cell Distribution Width 20.3 % (12.1-15.1); White Blood Count 5.71 10^3/uL (3.29-11.43)
[2023-03-18 17:20] VITALS: PULSE 97; O2SAT 98
== END 2023-03-18 17:21 | disposition home or self-care (01) ==
PROVIDERS: Emergency Provider Internal Medicine; PCP Family Medicine
DX: F41.9 Anxiety disorder, unspecified (principal); F17.290 Nicotine dependence, other tobacco product, uncomplicated; I50.9 Heart failure, unspecified; E11.40 Type 2 diabetes mellitus with diabetic neuropathy, unspecified
CPT/HCPCS: 85025; 99283

== ENCOUNTER 2023-06-01 16:06 | Emergency (ER) | payer MEDICARE, MEDICAID, SELFPAY ==
[2023-05-28 06:42] VITALS: BP 110/72; BMI 37.9
[2023-06-01 16:13] VITALS: BP 126/61; PULSE 93; RESP 18; TEMP 37.4
--- NOTE | 2023-06-01 16:20 | XRR_ITS ---
PROCEDURE INFORMATION: Exam: XR Chest Exam date and time: 06/01/2023 4:32 PM Age: 58 years old Clinical indication: Cough; Additional info: Fever chills cough TECHNIQUE: Imaging protocol: Radiologic exam of the chest. Views: 1 view. COMPARISON: CR XR chest 1V portable [id number] 08/22/2022 3:16 PM FINDINGS: Lungs: Unremarkable. No consolidation. Pleural spaces: Unremarkable. No pleural effusion. No pneumothorax. Heart/Mediastinum: Unremarkable. No cardiomegaly. Bones/joints: Unremarkable. XR/XR chest 1V portable [id number] IMPRESSION: No acute findings.
--- NOTE | 2023-06-01 16:29 | ED_ITS ---
HPI - URI/Sore Throat General: Chief Complaint: Upper Respiratory Infection Stated Complaint: Fever, Body aches , headache Time Seen by Provider: 06/01/23 16:10 History of Present Illness: Patient presents to the ER with complaints of fever, body aches, headache, cough will be started last night. Patient says she has had multiple pneumonias in the past as well as COVID several times. Review of Systems General: Reports: 10 or more systems reviewed and unremarkable except in HPI and below PFSH ED PFSH: Medical History Cannabis dependence, episodic use last use 03/26/23 Major depressive disorder, recurrent, severe with psychotic symptoms Suicidal ideation Nicotine dependence due to vaping tobacco product Vaping nicotine Chronic post-traumatic stress disorder Alcohol use disorder, severe, dependence last use 03/26/23 Psychiatric care Uncontrolled type 2 diabetes with neuropathy Sacroiliitis H/O Belkys-Valenzuela syndrome (~07/2019) EGD at [facility]. EGD 10/26 negative. Chronic back pain Congestive heart failure Diabetes mellitus MONTANO (nonalcoholic steatohepatitis) Borderline personality disorder Bilateral primary osteoarthritis of hip Surgical History History of esophagogastroduodenoscopy H/O colonoscopy H/O cervical spine surgery Family History Son Suicide September 2019 Other Cancer Hypertension Psychiatric illness Social History Smoking and tobacco/nicotine status: current every day tobacco/nicotine user e- cigarettes E-Cigarette Details: vaporizer device and with nicotine E-cig/vape details: 6000 puffs in each device, uses 3 per month Quit status (tobacco/nicotine): has quit using Alcohol intake: former Former alcohol use details: 8 days sober Substance/Drug Use: former Adopted: No Caregiver/support person: Yes (cleans and runs errands) Lives independently: No Household members: significant other Housing: Apartment Marital status: Single Number of children: 2 Number of grandchildren: 0 Highest education level completed: Associate Degree: Occupational, Technical, Vocational Program 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 service: No Current occupational status: disabled Current occupational exposures/hazards: No Pets and animals: Yes Pets & animals: cat(s) Leisure activites: music and games Sexually active: Yes How many partners: 1 Are you practicing safe sex: No Do you think of yourself as: Straight/Heterosexual Current gender identity: Female Aparna/Orthodoxy: Presybeterian Special aparna needs: No Agree to transfusion: Yes Female Reproductive History: Para: 2 Spontaneous abortions: Yes (10) Physical Exam Const: COMMON NORMALS: no acute distress, average body habitus, patient oriented x3, no limitations, healthy appearing, alert and well nourished HENMT: COMMON NORMALS: normocephalic, atraumatic, hearing grossly normal bilaterally, external ears normal, Normal external nose present, moist oral mucous membranes and oropharynx normal HEAD & SCALP: normocephalic and atraumatic NOSE: Normal external nose present EXTERNAL EAR: Yes external ears normal Eye: COMMON NORMALS: Equal, round and reactive pupils present, EOMs intact bilaterally, conjunctivae normal and no scleral icterus CONJUNCTIVA: Yes conjunctivae normal PUPIL: Yes Equal, round and reactive pupils present Neck/C-Spine: COMMON NORMALS: full ROM, no lymphadenopathy, supple, no meningeal signs, no JVD and Thyroid normal THYROID: Thyroid normal Chest: COMMONS NORMALS: normal inspection of the chest and normal palpation of entire chest wall Resp: COMMON NORMALS: normal respiratory effort, No retractions, No use of accessory muscles and clear to auscultation bilaterally AUSCULTATION: clear to auscultation bilaterally Cardio: COMMON NORMALS: no JVD, regular rate, regular rhythm, S1 normal heart sound present, S2 normal heart sound present, No gallops present (Cardio), No clicks present (Cardio), No murmurs present (Cardio) and No rub (Cardio) RATE: regular rate RHYTHM: regular rhythm HEART SOUNDS: S1 normal heart sound present and S2 normal heart sound present GI: COMMON NORMALS: Normal to inspection, nondistended, normoactive bowel sounds present, Soft to palpation, non-tender, No hepatosplenomegaly present and no masses PALPATION: Yes Soft to palpation and Yes No hepatosplenomegaly present Neuro: COMMON NORMALS: patient oriented x3 SENSORIUM/ORIENTATION: Yes alert MENINGEAL SIGNS: Yes no meningeal signs Course Vital Signs: Vital signs: Vital Signs Temperature 99.4 F 06/01/23 17:49 Pulse Rate 75 02/23/24 17:49 Respiratory Rate 14 06/01/23 17:49 Blood Pressure 140/64 06/01/23 17:49 Pulse Oximetry 97 06/01/23 17:49 Oxygen Delivery Me thod Room Air 06/01/23 16:48 MDM - URI/Sore Throat Medical Decision Making Patient had chest x-ray which showed no acute pneumonia, swabs for influenza and COVID which were both negative. Is thought patient probably has a different viral illness however she did states she gets pneumonia very frequently so patient will be placed on antibiotics to see if it improves her overall symptoms. Patient will be discharged and instructed to follow-up with her PCP within next 7 days for further evaluation and treatment as needed. Differential Diagnosis Likely upper respiratory infection; Unlikely croup, otitis media, sinusitis, viral infection, bronchitis, influenza or pharyngitis Medical Records I reviewed the patient's medical records. Lab Data I reviewed the patient's lab results. Radiology Impressions Chest X-Ray 06/01/23 16:20 IMPRESSION: No acute findings. Laboratory Results Influenza Type A Ag negative (Negative) 06/01/23 16:36 Influenza Type B Ag negative (Negative) 06/01/23 16:36 SARS-CoV-2 Ag (Rapid) negative (Negative) 06/01/23 16:36 All radiology interpretation(s) finalized by discharge Discharge Plan Discharge Patient Disposition: Home Clinical Impression: Viral upper respiratory illness Condition: Stable Prescriptions: New doxycycline hyclate 100 mg capsule 100 mg PO BID 7 Days Qty: 14 0RF tramadol 50 mg tablet 50 mg PO Q8H PRN (Reason: pain) Qty: 14 0RF No Action (DME) [facility] [place] [facility] AFO to the left See Rx Instructions .Route .MEDSUPPLY Qty: 1 0RF Rx Instructions: As directed epinephrine 0.3 mg/0.3 mL auto-injector 0.3 mg IM Q10M PRN (Reason: Anaphylaxis) Rx Instructions: for 2 doses Women's 50 Plus Multivitamin 400 mcg-500 mg calcium-20 mcg Tablet 1 tab PO DAILY isosorbide mononitrate 30 mg tablet extended release 24 hr 30 mg PO DAILY hydroxyzine pamoate 50 mg capsule 50 mg PO BID sertraline [Zoloft] 100 mg tablet 100 mg PO QAM trazodone 100 mg tablet 100 mg PO BEDTIME Rx Instructions: Take one tablet with 300 mg tablet 30 min prior to bedtime, total dose 400 mg trazodone 300 mg tablet 300 mg PO BEDTIME Rx Instructions: Take one tablet with 100 mg tablet 30 min prior to bedtime tizanidine 4 mg tablet 4 mg PO TID PRN (Reason: Muscle Spasm) nitroglycerin [Nitrostat] 0.4 mg Tablet, Sublingual 0.4 mg SUBLINGUAL Q5M PRN (Reason: Chest Pain) Rx Instructions: do not exceed 3 doses per episode acetaminophen [Tylenol] 325 mg Tablet 650 mg PO Q6H PRN (Reason: Pain) Discharge Orders: Discharge ED (Routine); Ordered 06/01/23 Ordered By: Christ Frazier Referrals: Tam Del Valle MD [Primary Care Provider] - 1 week Patient Instructions: Viral Syndrome (ED) Activity Restrictions/Additional Instructions: Your chest x-ray, influenza and COVID swabs were all negative. As suspected you have a viral upper respiratory illness however your predilection to getting pneumonia we will cover you with antibiotics. Please take your medicine as directed and please follow-up with your family practice physician for further evaluation and testing within the next 7 days. Coding Level of Care Code ED Fountain Waitress/Waiter for Rober Arellano
--- NOTE | 2023-06-01 16:37 | PC.PHAR ---
medications entered are from what shows on ext med history and what was on previously entered med list
[2023-06-01 16:48] VITALS: BP 140/64; PULSE 75; RESP 14; O2SAT 97
[2023-06-01] MEDS: TRAMadol 50 mg Tablet PO (17:06)
[2023-06-01 17:15] LABS: Influenza A by IFA negative (Negative); Influenza B by IFA negative (Negative); SARS Covid-2 Antigen negative (Negative)
[2023-06-01 17:49] VITALS: BP 140/64; PULSE 75; RESP 14; TEMP 37.4; O2SAT 97
== END 2023-06-01 17:50 | disposition home or self-care (01) ==
PROVIDERS: Emergency Provider Emergency Medicine; PCP Family Medicine
DX: J06.9 Acute upper respiratory infection, unspecified (principal); Z11.52 Encounter for screening for COVID-19; F17.290 Nicotine dependence, other tobacco product, uncomplicated; E11.40 Type 2 diabetes mellitus with diabetic neuropathy, unspecified; I50.9 Heart failure, unspecified
CPT/HCPCS: 71045; 87426; 87804; 99284

== ENCOUNTER 2023-06-05 00:19 | Inpatient (IN) | payer MEDICARE, MEDICAID, SELFPAY ==
[2023-05-28 06:42] VITALS: BP 110/72; BMI 37.9
[2023-06-05] VITALS (52 sets, daily range): BP systolic 93–165; BP diastolic 37–88; PULSE 34–66; RESP 12–24; TEMP 36.1–36.6; O2SAT 91–98; BMI 36.3; BMI 34.7
--- NOTE | 2023-06-05 00:29 | XRR_ITS ---
PROCEDURE INFORMATION: Exam: XR Chest Exam date and time: 06/05/2023 12:35 AM Age: 58 years old Clinical indication: Patient HX: EMS arrival with pd for drug overdose. TECHNIQUE: Imaging protocol: Radiologic exam of the chest. Views: 1 view. COMPARISON: CR (CHEST, ) 06/01/2023 4:32 PM FINDINGS: Tubes, catheters and devices: Surgical changes of posterior cervical spinal instrumentation and ACDF. Lungs: Left lower lung zone airspace opacities can be related to atelectasis versus or early infiltrates. Pleural spaces: Unremarkable. No pleural effusion. No pneumothorax. Heart/Mediastinum: Unremarkable. No cardiomegaly. Bones/joints: Moderate degenerative disease of bilateral acromioclavicular joints. Other findings: Rotated radiograph. XR/XR chest 1V portable [id number] IMPRESSION: Left lower lung zone airspace opacities that can be related to atelectasis versus early infiltrates.
--- NOTE | 2023-06-05 00:31 | ED_ITS ---
HPI - Overdose 2 General: Chief Complaint: Psychiatric Symptoms Stated Complaint: overdose Time Seen by Provider: 06/05/23 00:29 Limitations: altered mental status History of Present Illness: Patient brought in by EMS with complaints of overdose. Patient allegedly took approximately 4 shots of alcohol and 10 Zanaflex. This was in an attempt to commit suicide per EMS. She took the pills approximately 11:30 PM patient has history of borderline personality disorder, acute anxiety, alcohol use disorder, major depressive disorder, polysubstance abuse Review of Systems 2 General: Reports: ROS unobtainable due to medical condition PFSH ED 2 PFSH: Medical History Cannabis dependence, episodic use last use 03/26/23 Major depressive disorder, recurrent, severe with psychotic symptoms Suicidal ideation Nicotine dependence due to vaping tobacco product Vaping nicotine Chronic post-traumatic stress disorder Alcohol use disorder, severe, dependence last use 03/26/23 Psychiatric care Uncontrolled type 2 diabetes with neuropathy Sacroiliitis H/O Belkys-Valenzuela syndrome (~07/2019) EGD at [facility]. EGD 10/26 negative. Chronic back pain Congestive heart failure Diabetes mellitus MONTANO (nonalcoholic steatohepatitis) Borderline personality disorder Bilateral primary osteoarthritis of hip Surgical History History of hysterectomy History of esophagogastroduodenoscopy H/O colonoscopy H/O cervical spine surgery Family History Son Suicide September 2019 Other Cancer Hypertension Psychiatric illness Social History Smoking and tobacco/nicotine status: current every day tobacco/nicotine user e- cigarettes E-Cigarette Details: vaporizer device and with nicotine E-cig/vape details: 6000 puffs in each device, uses 3 per month Quit status (tobacco/nicotine): has quit using Alcohol intake: former Former alcohol use details: 8 days sober Substance/Drug Use: former Adopted: No Caregiver/support person: Yes (cleans and runs errands) Lives independently: No Household members: significant other Housing: Apartment Marital status: Single Number of children: 2 Number of grandchildren: 0 Highest education level completed: Associate Degree: Occupational, Technical, Vocational Program 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 HENMT: COMMON NORMALS: normocephalic, atraumatic, hearing grossly normal bilaterally, external ears normal, EAC's normal, Normal external nose present, moist oral mucous membranes and oropharynx normal HEAD & SCALP: normocephalic and atraumatic NOSE: Normal external nose present EXTERNAL EAR: Yes external ears normal EXTERNAL AUDITORY CANAL: EAC's normal Neck/C-Spine: COMMON NORMALS: no JVD Chest: COMMONS NORMALS: normal inspection of the chest and normal palpation of entire chest wall Resp: COMMON NORMALS: normal respiratory effort, No retractions, No use of accessory muscles and clear to auscultation bilaterally AUSCULTATION: clear to auscultation bilaterally Cardio: COMMON NORMALS: no JVD, regular rate, regular rhythm, S1 normal heart sound present, S2 normal heart sound present, No gallops present (Cardio), No clicks present (Cardio), No murmurs present (Cardio) and No rub (Cardio) R ATE: regular rate RHYTHM: regular rhythm HEART SOUNDS: S1 normal heart sound present and S2 normal heart sound present GI: COMMON NORMALS: Normal to inspection, nondistended, normoactive bowel sounds present, Soft to palpation, non-tender, No hepatosplenomegaly present and no masses PALPATION: Yes Soft to palpation and Yes No hepatosplenomegaly present Course 2 Vital Signs: Vital signs: Vital Signs Temperature 97.9 F 06/05/23 00:23 Pulse Rate 65 06/05/23 02:01 Respiratory Rate 20 H 06/05/23 02:01 Blood Pressure 98/70 06/05/23 02:01 Pulse Oximetry 93 06/05/23 02:01 Oxygen Delivery Me thod Room Air 06/05/23 00:23 MDM - Overdose Medical Decision Making Patient brought in by EMS with drug overdose and probable suicide attempt. Patient had lab work performed as well as EKG and chest x-ray. Lab work showed ethyl alcohol of 193, total bilirubin 1.5, potassium of 3.2, otherwise fairly benign. EKG showed no acute changes, chest x-ray showed left lower lung atelectasis versus early infiltrate. I feel this is probably atelectasis due to the normal white count. Poison control was called. Dr. Choi was notified and agreed to accept the patient to the ICU with plans on going to [facility]. Patient will be 96-hour hold. Differential Diagnosis Likely drug overdose; Unlikely cocaine intoxication, suicide attempt by multiple drug overdose, poisoning by opiate or related narcotic, acetaminophen overdose or accidental drug ingestion Medical Records I reviewed the patient's medical records. Lab Data I reviewed the patient's lab results. 06/05/23 03:54 06/05/23 00:43 Radiology Impressions Chest X-Ray 06/05/23 00:29 IMPRESSION: Left lower lung zone airspace opacities that can be related to atelectasis versus early infiltrates. Laboratory Results WBC 7.87 10^3/uL (3.29-11.43) 06/05/23 00:43 RBC 4.23 10^6/uL (3.85-5.65) 06/05/23 00:43 Hgb 13.20 g/dL (11.27-16.99) 06/05/23 00:43 Hct 37.7 % (36-47) 06/05/23 00:43 MCV 89.1 fl (85-98) 06/05/23 00:43 MCH 31.2 pg (27-33) 06/05/23 00:43 MCHC 35.0 g/dL (30-55) 06/05/23 00:43 RDW 14.4 % (12.1-15.1) 06/05/23 00:43 Plt Count 126 10^3/cmm (157-399) L 06/05/23 00:43 MPV 8.8 fL (7.4-10.4) 06/05/23 00:43 Neut % (Auto) 67.8 % 06/05/23 00:43 Lymph % (Auto) 19.7 % 06/05/23 00:43 Steele % (Auto) 9.1 % 06/05/23 00:43 Eos % (Auto) 2.5 % 06/05/23 00:43 Baso % (Auto) 0.5 % 06/05/23 00:43 Neut # (Auto) 5.33 10^3/uL (1.8-7.7) 06/05/23 00:43 Lymph # (Auto) 1.6 10^3/uL (0.8-4.8) 06/05/23 00:43 Steele # (Auto) 0.7 10^3/uL (0.2-0.9) 06/05/23 00:43 Eos # (Auto) 0.2 10^3/uL (0.0-0.8) 06/05/23 00:43 Baso # (Auto) 0.0 10^3/uL (0.0-0.1) 06/05/23 00:43 Nucleated RBC % (auto) 0 % 06/05/23 00:43 Nucleated RBCs # 0.0 /100WBC 06/05/23 00:43 Sodium 142 mmol/L (136-145) 06/05/23 00:43 Potassium 3.2 mmol/L (3.5-5.1) L 06/05/23 00:43 Chloride 106 mmol/L (98-107) 06/05/23 00:43 Carbon Dioxide 22 mmol/L (22-29) 06/05/23 00:43 Anion Gap 17.2 (5-19) 06/05/23 00:43 BUN 7 mg/dL (6-20) 06/05/23 00:43 Creatinine 0.5 mg/dL (0.5-0.9) 06/05/23 00:43 GFR Calculation 127.6 mL/min (90-130) 06/05/23 00:43 Glucose 160 mg/dL (65-115) H 06/05/23 00:43 Calculated Osmolality 295 mOsm/kg (285-295) 06/05/23 00:43 Calcium 8.4 mg/dL (8.5-10.5) L 06/05/23 00:43 Magnesium 1.8 mg/dL (1.7-2.3) 06/05/23 00:43 Total Bilirubin 1.5 mg/dL (0.15-1.2) H 06/05/23 00:43 AST 48 U/L (0-32) H 06/05/23 00:43 ALT 27 U/L (0-33) 06/05/23 00:43 Alkaline Phosphatase 139 U/L (35-105) H 06/05/23 00:43 Troponin T Baseline 8 ng/L (0-10) 06/05/23 00:43 Total Protein 5.8 g/dL (6.6-8.7) L 06/05/23 00:43 Albumin 3.4 g/dL (3.5-5.2) L 06/05/23 00:43 Globulin 2.4 g/dL (1.3-4.6) 06/05/23 00:43 Salicylates < 0.3 mg/dL (3-10) L 06/05/23 00:43 Acetaminophen < 5.0 ug/mL (10-30) L 06/05/23 00:43 Ethyl Alcohol 193 mg/dL (0-10) H 06/05/23 00:43 All radiology interpretation(s) finalized by discharge EKG Data EKG 1: I personally reviewed and interpreted this EKG as follows: EKG interpretation date: 06/05/23 EKG interpretation time: 00:26 Prior EKG tracings: not available for review Interpretation: Ventricular rate 67 bpm, NM interval 175, QRS duration 92, QTc of 460, sinus rhythm, Critical Care Time 2 Critical Care Time: Critical Care Time: Yes Total Critical Care Time: 30 Attestation: The patient was emergently evaluated this patient's presentation and case had a high probability of a clinically significant, sudden, or life-threatening deterioration of the patient's initial critical presentation or condition which required my full and direct attention, intervention and personal management. Discharge Plan Discharge Patient Disposition: Admitted As Inpatient Admit Provider: Garcia Choi Clinical Impression: Acute drug overdose, Alcohol intoxication Condition: Stable Coding Level of Care Code ED Director Inpatient Headache Program for Rober Arellano
[2023-06-05 00:48] LABS: Basophils % 0.5 %; Eosinophils # 0.2 10^3/uL (0.0-0.8); Eosinophils % 2.5 %; Hematocrit 37.7 % (36-47); Lymphocytes # 1.6 10^3/uL (0.8-4.8); Lymphocytes % 19.7 %; Mean Corpuscular Hemoglobin 31.2 pg (27-33); Mean Corpuscular Volume 89.1 fl (85-98); Mean Platelet Volume 8.8 fL (7.4-10.4); Monocytes # 0.7 10^3/uL (0.2-0.9); Monocytes % 9.1 %; Neutrophils # 5.33 10^3/uL (1.8-7.7); Neutrophils % 67.8 %; Nucleated Red Blood Cells % 0 %; Platelet Count 126 10^3/cmm (157-399); Red Blood Count 4.23 10^6/uL (3.85-5.65); Red Cell Distribution Width 14.4 % (12.1-15.1); White Blood Count 7.87 10^3/uL (3.29-11.43)
[2023-06-05 01:15] LABS: Troponin(5th) Baseline 8 ng/L (0-10)
[2023-06-05 01:18] LABS: Alanine Aminotransferase 27 U/L (0-33); Albumin Level 3.4 g/dL (3.5-5.2); Alcohol Level 193 mg/dL (0-10); Alkaline Phosphatase 139 U/L (35-105); Anion Gap 17.2 (5-19); Aspartate Amino Transferase 48 U/L (0-32); Blood Urea Nitrogen 7 mg/dL (6-20); Calcium 8.4 mg/dL (8.5-10.5); Carbon Dioxide 22 mmol/L (22-29); Chloride 106 mmol/L (98-107); Creatinine Clr Calc Pharmacy 161.9332; Globulin 2.4 g/dL (1.3-4.6); Glomerular Filtration Rate 127.6 mL/min (90-130); Glucose 160 mg/dL (65-115); Magnesium 1.8 mg/dL (1.7-2.3); Osmolality Calculated 295 mOsm/kg (285-295); Potassium 3.2 mmol/L (3.5-5.1); Salicylate < 0.3 mg/dL (3-10); Sodium 142 mmol/L (136-145); Total Bilirubin 1.5 mg/dL (0.15-1.2); Total Protein 5.8 g/dL (6.6-8.7)
[2023-06-05 01:19] LABS: Acetaminophen < 5.0 ug/mL (10-30)
--- NOTE | 2023-06-05 02:00 | PC.NURSE ---
96 Hour Hold Pt served with copy of 96 Hour Hold. Pt not responding to stimuli at this time. VSS. Paperwork laid at bedside.
--- NOTE | 2023-06-05 02:28 | PM.HP ---
Providers/Chief Complaint Admitting Physician: Garcia Choi Primary Care Provider: Tam Del Valle MD Chief Complaint: overdose History of Present Illness 58-year-old lady was brought in EMS after overdose with Zanaflex taken together with 4 shots of alcohol and a beer with suicidal intent reported by EMS. Poison control was contacted in ER. Recommendation for additional monitoring for hypotension, sedation, waking up she is lethargic with pinpoint pupils. Review of Systems General: Reports: ROS unobtainable due to mental status Medications/Allergies Home Medications Medication Instructions Recorded Confirmed Last Taken Type epinephrine 0.3 mg/0.3 mL 0.3 mg IM Q10M PRN Anaphylaxis 04/19/21 06/01/23 Unknown History injection, auto-injector Sintia AFO to the left #1 ea 05/23/22 06/01/23 Unknown Rx nvaflueg-fle-ndsdt ac 400 1 tab PO DAILY 08/22/22 06/01/23 Unknown History mcg-calcium carb 500 mg-vit K1 20 mcg tablet (Women's 50 Plus Multivitamin) acetaminophen 325 mg tablet 650 mg PO Q6H PRN Pain 02/27/23 06/01/23 Unknown History (Tylenol) nitroglycerin 0.4 mg sublingual 0.4 mg sublingual Q5M PRN Chest 02/27/23 06/01/23 Unknown History tablet (Nitrostat) Pain tizanidine 4 mg tablet 4 mg PO TID PRN Muscle Spasm 02/27/23 06/01/23 Unknown History doxycycline hyclate 100 mg capsule 100 mg PO BID 7 days #14 caps 06/01/23 Unknown Rx hydroxyzine pamoate 50 mg capsule 50 mg PO BID 06/01/23 06/01/23 Unknown History isosorbide mononitrate 30 mg 30 mg PO DAILY 06/01/23 06/01/23 Unknown History tablet,extended release 24 hr sertraline 100 mg tablet (Zoloft) 100 mg PO QAM 06/01/23 06/01/23 Unknown History tramadol 50 mg tablet 50 mg PO Q8H PRN pain #14 tabs 06/01/23 Unknown Rx trazodone 100 mg tablet 100 mg PO BEDTIME 06/01/23 06/01/23 Unknown History trazodone 300 mg tablet 300 mg PO BEDTIME insomnia 06/01/23 06/01/23 Unknown History Allergies Allergy/AdvReac Type Severity Reaction Status Date / Time venom-wasp Allergy Severe ALGY-Anaphy Verified 06/05/23 00:33 laxis Sulfa (Sulfonamide Allergy Intermediate Hives Verified 06/05/23 00:33 Antibiotics) aspirin Allergy Unknown Unknown Verified 06/05/23 00:33 Cephalosporins Allergy Unknown Unknown Verified 06/05/23 00:33 NSAIDS (Non-Steroidal Allergy Unknown Unknown Verified 06/05/23 00:33 Anti-Inflamma sumatriptan [From Imitrex] Allergy Unknown Unknown Verified 06/05/23 00:33 acetaminophen [From Tylenol] Allergy Unknown Verified 06/05/23 00:33 ibuprofen Allergy UNKNOWN Verified 06/05/23 00:33 [From NeoProfen (ibuprofen lysn)(PF)] metoclopramide [From Reglan] Allergy ALGY-Joint Verified 06/05/23 00:33 Pain bupropion [From Wellbutrin] AdvReac Intermediate ALGY-Rash Verified 06/05/23 00:33 prednisone AdvReac Intermediate Heart rate Verified 06/05/23 00:33 was heavy. [place] sick. PFSH Acute PFSH: Medical History Cannabis dependence, episodic use last use 03/26/23 Major depressive disorder, recurrent, severe with psychotic symptoms Suicidal ideation Nicotine dependence due to vaping tobacco product Vaping nicotine Chronic post-traumatic stress disorder Alcohol use disorder, severe, dependence last use 03/26/23 Psychiatric care Uncontrolled type 2 diabetes with neuropathy Sacroiliitis H/O Belkys-Valenzuela syndrome (~07/2019) EGD at [facility]. EGD 10/26 negative. Chronic back pain Congestive heart failure Diabetes mellitus MONTANO (nonalcoholic steatohepatitis) Borderline personality disorder Bilateral primary osteoarthritis of hip Surgical History History of hysterectomy History of esophagogastroduodenoscopy H/O colonoscopy H/O cervical spine surgery Family History Son Suicide September 2019 Other Cancer Hypertension Psychiatric illness Social History Smoking and tobacco/nicotine status: current every day tobacco/nicotine user e-cigarettes E-Cigarette Details: vaporizer device and with nicotine E-cig/vape details: 6000 puffs in each device, uses 3 per month Quit status (tobacco/nicotine): has quit using Alcohol intake: former Former alcohol use details: 8 days sober Substance/Drug Use: former Adopted: No Caregiver/support person: Yes (cleans and runs errands) Lives independently: No Household members: significant other Housing: Apartment Marital status: Single Number of children: 2 Number of grandchildren: 0 Highest education level completed: Associate Degree: Occupational, Technical, Vocational Program 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 service: No Current occupational status: disabled Current occupational exposures/hazards: No Pets and animals: Yes Pets & animals: cat(s) Leisure activites: music and games Sexually active: Yes How many partners: 1 Are you practicing safe sex: No Do you think of yourself as: Straight/Heterosexual Current gender identity: Female Aparna/Rastafari: Mu-Ism Special aparna needs: No Agree to transfusion: Yes Female Reproductive History: Para: 2 Spontaneous abortions: Yes (10) Vitals/I&O/Wt Last Vital Signs Temp 97.9 F 06/05/23 00:23 Pulse 65 06/05/23 02:01 Resp 20 H 06/05/23 02:01 BP 98/70 06/05/23 02:01 Pulse Ox 93 06/05/23 02:01 O2 Del Method Room Air 06/05/23 00:23 Weight last 48 hrs Weight 81.647 kg Physical Exam Const: COMMON NORMALS: negative for patient oriented x3 and negative for alert GENERAL APPEARANCE: not cooperative ORIENTATION/CONSCIOUSNESS: not awake Eye: PUPIL: Yes Pinpoint pupils bilaterally Neck/C-Spine: COMMON NORMALS: no JVD Resp: COMMON NORMALS: normal respiratory effort and clear to auscultation bilaterally AUSCULTATION: clear to auscultation bilaterally Cardio: COMMON NORMALS: no JVD, regular rhythm, S1 normal heart sound present, S2 normal heart sound present and No murmurs present (Cardio) RHYTHM: regular rhythm HEART SOUNDS: S1 normal heart sound present and S2 normal heart sound present GI: COMMON NORMALS: Normal to inspection, nondistended, normoactive bowel sounds present, Soft to palpation and non-tender PALPATION: Yes Soft to palpation Extremity: COMMON NORMALS: no joint enlargement and no pedal edema Neuro: COMMON NORMALS: negative for patient oriented x3 SENSORIUM/ORIENTATION: Yes alert Skin: COMMON NORMALS: no rashes or lesions noted GENERAL SKIN EXAM: no rashes or lesions noted Data 06/05/23 00:43 06/05/23 00:43 A&P Assessment and plan (1) Acute drug overdose: Overdose with reported 10 tablets of Zanaflex, taken together with 4 shots of alcohol in the ER. Suspected suicidal ideation. Poison control was contacted in the ER. Monitor for hypotension, sedation, arrhythmia. Monitor on telemetry. Reviewed vitals, CBC, CMP, serum salicylate, acetaminophen, EtOH level. EtOH 193. UDS is pending. Reviewed EKG, chest x-ray. 96-hour hold. Reviewed ER note, discussed with ER physician. She is currently lethargic with pinpoint pupils requires close monitoring in ICU as unknown if other polysubstance overdose is present. Will need psychiatry assessment once mental status improves and she is able to communicate. Ativan as needed's for agitation. NPO. DVT prophylaxis. Qualifiers: Encounter type: initial encounter Injury intent: intentional self-harm Qualified Code(s): T50.902A - Poisoning by unspecified drugs, medicaments and biological substances, intentional self-harm, initial encounter (2) Alcohol intoxication: Monitor monitoring. May be at risk of withdrawal subsequently with history of EtOH dependence. Qualifiers: Complication of substance-induced condition: uncomplicated Qualified Code(s): F10.920 - Alcohol use, unspecified with intoxication, uncomplicated (3) Hypokalemia: Replacement requested. Follow-up chemistry requested. Follow-up Eliquis 2 point (4) Hyperbilirubinemia: Changed from January. Will benefit from follow-up gallbladder ultrasound. Plan Abnormal chest x-ray: Atelectasis versus infiltrates in bilateral lungs, so far no other suggestion of pneumonia. Saturation in 90s on room air, afebrile without leukocytosis. Reassess condition. Contact primary once able to participate. Reassess for any signs of development of pneumonia. DM2: Monitor blood glucose, sliding scale insulin. Congestive heart failure: Currently not in exacerbation MONTANO Chronic back pain Borderline personality disorder MDD PTSD Attestations Medical Necessity Statement*: Admission of over 2 midnights anticipated for assessment management following multisubstance overdose, suspected suicidal intention. Coding Level of Care Code Critical Care >/= 30 minutes Critical care time (in minutes): 35 The high probability of a clinically significant, sudden or life threatening deterioration, as referenced in this documentation, required my full and direct attention, intervention and personal management. The critical care time shown is in addition to time spent performing any reported separately billable procedures and includes the following: [x] Data and vital sign review and interpretation [x] Patient assessment, examination and intervention [x] Medication orders and management [x] Patient/Family updates as able [x] Care Coordination and Documentation. Diagnoses Acute drug overdose T50.902A Encounter type: initial encounter Injury intent: intentional self-harm Alcohol intoxication F10.920 Complication of substance-induced condition: uncomplicated Hypokalemia E87.6 Hyperbilirubinemia E80.6
--- NOTE | 2023-06-05 02:30 | ECG_ITS ---
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 Measurements Intervals [place] Rate: 67 P: 37 CO: 175 QRS: 16 QRSD: 92 T: 14 QT: 445 QTc: 471 Interpretive Statements SINUS RHYTHM Compared to ECG 02/27/2023 14:22:30 Sinus tachycardia no longer present Electronically Signed On 06-05-2023 1:05:51 NEON GLASS BLOWER by Tom Ford M.D. [id number]
[2023-06-05 03:30] LABS: Glucose Point of Care 153 mg/dL (70-110)
[2023-06-05] MEDS: heparin 5,000 unit/mL INJ 1 mL 5000 UNIT SUBCUT ×2 (03:39→14:37)
[2023-06-05] MEDS: insulin lispro 100 unit/1 mL SUBCUT ×2 (03:40→20:45)
[2023-06-05 03:52] LABS: Troponin 5 2HR 7.03 ng/L (0-10)
[2023-06-05 03:57] LABS: Troponin 5 2HR Delta -0.97 ABS# (0-10)
[2023-06-05 04:01] LABS: Basophils % 0.5 %; Eosinophils # 0.1 10^3/uL (0.0-0.8); Eosinophils % 2.3 %; Hematocrit 34.2 % (36-47); Lymphocytes # 1.3 10^3/uL (0.8-4.8); Lymphocytes % 23.3 %; Mean Corpuscular HGB Conc 35.7 g/dL (30-55); Mean Corpuscular Hemoglobin 31.9 pg (27-33); Mean Corpuscular Volume 89.5 fl (85-98); Mean Platelet Volume 8.9 fL (7.4-10.4); Monocytes # 0.5 10^3/uL (0.2-0.9); Monocytes % 8.5 %; Nucleated Red Blood Cells % 0 %; Platelet Count 92 10^3/cmm (157-399); Red Blood Count 3.82 10^6/uL (3.85-5.65); Red Cell Distribution Width 14.6 % (12.1-15.1); White Blood Count 5.54 10^3/uL (3.29-11.43)
[2023-06-05] MEDS: lidocaine 1% 5 ML in potassium chloride premix 100 ML 52.5 ML IV (04:03)
[2023-06-05 04:23] LABS: Alanine Aminotransferase 24 U/L (0-33); Alkaline Phosphatase 124 U/L (35-105); Anion Gap 14.3 (5-19); Aspartate Amino Transferase 42 U/L (0-32); Blood Urea Nitrogen 7 mg/dL (6-20); Calcium 8.2 mg/dL (8.5-10.5); Carbon Dioxide 24 mmol/L (22-29); Chloride 108 mmol/L (98-107); Creatinine Clr Calc Pharmacy 161.9332; Globulin 2.5 g/dL (1.3-4.6); Glomerular Filtration Rate 127.6 mL/min (90-130); Glucose 151 mg/dL (65-115); Osmolality Calculated 297 mOsm/kg (285-295); Potassium 3.3 mmol/L (3.5-5.1); Sodium 143 mmol/L (136-145); Total Bilirubin 1.3 mg/dL (0.15-1.2); Total Protein 5.5 g/dL (6.6-8.7)
--- NOTE | 2023-06-05 04:34 | PC.NURSE ---
Poison Control Patient update provided to poison control; no new recommendations received.
--- NOTE | 2023-06-05 06:16 | PC.NURSE ---
HR/BP On arrival to ICU, patient's blood pressure was 136/85 with a HR maintaining in the 60s. Since then both the blood pressure and HR slowly decreasing, ranging from 93/57-109/56 and 40-[address] Choi notified; order to be placed by physician.
[2023-06-05] MEDS: EPINEPHrine 2.5 MG in sodium chloride 0.9% 250 ML 12.1199999999999992 MG IV (06:49)
[2023-06-05 07:16] LABS: Troponin 5 6HR 8.81 ng/L (0-10); Troponin 5 6HR Delta 0.81 ng/L (0-12)
[2023-06-05 08:24] LABS: Glucose Point of Care 129 mg/dL (70-110)
--- NOTE | 2023-06-05 08:25 | PC.NURSE ---
dentures returned from lock up... phone and meds back to lock witness per david alfonso
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
[2023-06-05 14:43] LABS: Glucose Point of Care 148 mg/dL (70-110)
[2023-06-05 14:44] LABS: Amphetamines Screen Urine Negative (Negative); Barbiturates Screen Urine Negative (Negative); Benzodiazepines Screen Urine Negative (Negative); Cocaine Screen Urine Negative (Negative); Opiate Screen Urine Negative (Negative); PCP Screen Urine Negative (Negative); THC Screen Urine Positive (Negative)
--- NOTE | 2023-06-05 15:54 | PC.NURSE ---
ex here for visit looking for kristie,, went over belonging with both of them,, bag in lock up with phone ring medication id . and shoes at desk dentures returned prior so pt could eat. no purse was noted on arrival to ICU ... pt states she is not sure is purse came with her
[2023-06-05 20:13] LABS: Glucose Point of Care 215 mg/dL (70-110)
[2023-06-05 22:20] LABS: HCG Qualitative Urine. Negative (Negative)
[2023-06-05] MEDS: TRAMadol 50 mg Tablet PO (22:25)
[2023-06-06] VITALS (47 sets, daily range): BP systolic 85–191; BP diastolic 39–100; PULSE 47–85; RESP 12–27; TEMP 36.6–37.7; O2SAT 91–100
[2023-06-06 03:48] LABS: Glucose Point of Care 180 mg/dL (70-110)
[2023-06-06] MEDS: heparin 5,000 unit/mL INJ 1 mL 5000 UNIT SUBCUT ×2 (03:52→16:38)
[2023-06-06] MEDS: insulin lispro 100 unit/1 mL SUBCUT (03:53)
[2023-06-06 05:06] LABS: Basophils % 0.2 %; Eosinophils % 0.2 %; Hematocrit 34.3 % (36-47); Lymphocytes % 11.8 %; Mean Corpuscular HGB Conc 34.4 g/dL (30-55); Mean Corpuscular Hemoglobin 31.1 pg (27-33); Mean Corpuscular Volume 90.5 fl (85-98); Mean Platelet Volume 9.4 fL (7.4-10.4); Monocytes # 0.5 10^3/uL (0.2-0.9); Monocytes % 5.2 %; Neutrophils # 7.23 10^3/uL (1.8-7.7); Neutrophils % 82.4 %; Nucleated Red Blood Cells % 0 %; Platelet Count 73 10^3/cmm (157-399); Red Blood Count 3.79 10^6/uL (3.85-5.65); Red Cell Distribution Width 14.3 % (12.1-15.1); White Blood Count 8.79 10^3/uL (3.29-11.43)
[2023-06-06 05:39] LABS: Alanine Aminotransferase 22 U/L (0-33); Alkaline Phosphatase 126 U/L (35-105); Aspartate Amino Transferase 39 U/L (0-32); Blood Urea Nitrogen 11 mg/dL (6-20); Calcium 8.7 mg/dL (8.5-10.5); Carbon Dioxide 24 mmol/L (22-29); Chloride 99 mmol/L (98-107); Creatinine Clr Calc Pharmacy 154.6802; Globulin 2.5 g/dL (1.3-4.6); Glomerular Filtration Rate 127.6 mL/min (90-130); Glucose 129 mg/dL (65-115); Osmolality Calculated 281 mOsm/kg (285-295); Sodium 135 mmol/L (136-145); Total Bilirubin 1.4 mg/dL (0.15-1.2); Total Protein 5.5 g/dL (6.6-8.7)
[2023-06-06 05:42] LABS: Anion Gap 15.8 (5-19); Potassium 3.8 mmol/L (3.5-5.1)
[2023-06-06 09:37] LABS: Glucose Point of Care 111 mg/dL (70-110)
[2023-06-06] MEDS: sodium chloride 0.9% 500 ML IV (09:41)
[2023-06-06] MEDS: ibuprofen 200 mg Tablet 400 MG PO (09:41)
[2023-06-06] MEDS: acetaminophen 500 mg Tablet PO (09:41)
[2023-06-06] MEDS: oxyCODONE-APAP 5-325 mg Tablet 1 TAB PO (11:51)
--- NOTE | 2023-06-06 12:02 | P.PN_ITS ---
Subjective 2 Subjective: Patient is still bradycardic Complaining of headache I will give her Tylenol ibuprofen and oxycodone Monitor 1 more day in ICU MAP around 65-70 Vitals/I&O/Wt Last Vital Signs Temp 97.8 F 06/06/23 06:00 Pulse 59 L 06/06/23 10:30 Resp 16 06/06/23 11:51 BP 105/70 06/06/23 10:30 Pulse Ox 99 06/06/23 11:51 O2 Del Method Room Air 06/06/23 10:30 O2 Flow Rate 2 06/05/23 11:46 06/05/23 06/06/23 06/06/23 22:59 06:59 14:59 Intake Total 550 / 905 732.500 / 1637.500 740 / 740 Output Total 120 / 120 Balance 430 / 785 732.500 / 1517.500 740 / 740 Weight last 48 hrs Weight 77.99 kg Weight 77.99 kg Weight 78 kg Weight 78 kg Weight 81.647 kg Physical Exam 2 Narrative: Awake and alert GCS 15 Dehydrated Pleasant cooperative No sign of confusion S1, S2 bradycardia Currently on room air Data 06/06/23 04:45 06/06/23 04:45 A&P Assessment and plan (1) Hx of Belkys-Valenzuela syndrome: (2) MONTANO (nonalcoholic steatohepatitis): (3) Hypokalemia: (4) Acute drug overdose: Qualifiers: Encounter type: initial encounter Injury intent: intentional self-harm Qualified Code(s): T50.902A - Poisoning by unspecified drugs, medicaments and biological substances, intentional self-harm, initial encounter (5) Drug overdose: Plan Intentional drug overdose Suicidal attempt Will call Dr. Merritt by tomorrow Patient will be monitored in ICU 1 more day She still hypertensive with bradycardia Off epinephrine drip No chest pain shortness of breath or confusion Will give her Tylenol ibuprofen oxycodone for migraine History of significant alcohol abuse nonalcoholic steatohepatitis No acute exacerbation Attestations 2 Medical Necessity Statement*: To psych unit by tomorrow Diagnoses Hx of Belkys-Valenzuela syndrome Z87.19 MONTANO (nonalcoholic steatohepatitis) K75.81 Hypokalemia E87.6 Acute drug overdose T50.902A Encounter type: initial encounter Injury intent: intentional self-harm Drug overdose T50.901A
[2023-06-06 16:08] LABS: Glucose Point of Care 109 mg/dL (70-110)
[2023-06-06 20:27] LABS: Glucose Point of Care 118 mg/dL (70-110)
--- NOTE | 2023-06-06 20:51 | CTR_ITS ---
PROCEDURE INFORMATION: Exam: CT Head Without Contrast Exam date and time: 06/06/2023 9:06 PM Age: 58 years old Clinical indication: Pain; Headache; Additional info: Severe headache TECHNIQUE: Imaging protocol: Computed tomography of the head without contrast. Radiation optimization: All CT scans at this facility use at least one of these dose optimization techniques: automated exposure control; mA and/or kV adjustment per patient size (includes targeted exams where dose is matched to clinical indication); or iterative reconstruction. COMPARISON: CT head wo con* [id number] 10/26/2021 11:38 AM RADIATION DOSE METRICS: Total DLP (mGy-cm): 1146 FINDINGS: Brain: No hemorrhage. No edema. Moderate diffuse cerebral atrophy. Old lacunar infarct noted in the left basal ganglia. No mass effect. Cerebral ventricles: No ventriculomegaly. Paranasal sinuses: Visualized sinuses are unremarkable. No fluid levels. Mastoid air cells: Visualized mastoid air cells are well aerated. Bones/joints: Unremarkable. No acute fracture. Soft tissues: Unremarkable. CT/CT head wo con* [id number] IMPRESSION: No acute intracranial abnormality.
--- NOTE | 2023-06-06 20:54 | PC.NURSE ---
Headache: Pt reporting 8/10 head pain, unrelieved by decreased stimuli by. Dr. Choi notified @2038.
[2023-06-06] MEDS: morphine 4 mg/mL SDV 1 mL IVP (21:34)
[2023-06-07] VITALS (25 sets, daily range): BP systolic 101–149; BP diastolic 43–92; PULSE 53–106; RESP 13–23; TEMP 37.3–38; O2SAT 94–100
[2023-06-07] MEDS: heparin 5,000 unit/mL INJ 1 mL 5000 UNIT SUBCUT (01:55)
[2023-06-07 02:40] LABS: Glucose Point of Care 112 mg/dL (70-110)
[2023-06-07] MEDS: ondansetron 2 mg/ML SDV 2 mL 4 MG IVP (04:55)
[2023-06-07 05:00] LABS: Basophils % 0.3 %; Eosinophils # 0.1 10^3/uL (0.0-0.8); Eosinophils % 1.3 %; Hematocrit 36.4 % (36-47); Lymphocytes # 1.1 10^3/uL (0.8-4.8); Mean Corpuscular HGB Conc 33.8 g/dL (30-55); Mean Corpuscular Hemoglobin 30.9 pg (27-33); Mean Corpuscular Volume 91.5 fl (85-98); Mean Platelet Volume 9.8 fL (7.4-10.4); Monocytes # 0.5 10^3/uL (0.2-0.9); Monocytes % 7.6 %; Neutrophils # 4.55 10^3/uL (1.8-7.7); Neutrophils % 72.5 %; Nucleated Red Blood Cells % 0 %; Platelet Count 75 10^3/cmm (157-399); Red Blood Count 3.98 10^6/uL (3.85-5.65); Red Cell Distribution Width 14.5 % (12.1-15.1); White Blood Count 6.28 10^3/uL (3.29-11.43)
[2023-06-07 05:25] LABS: Alanine Aminotransferase 21 U/L (0-33); Alkaline Phosphatase 138 U/L (35-105); Anion Gap 12.9 (5-19); Aspartate Amino Transferase 33 U/L (0-32); Blood Urea Nitrogen 10 mg/dL (6-20); Calcium 8.7 mg/dL (8.5-10.5); Carbon Dioxide 25 mmol/L (22-29); Chloride 104 mmol/L (98-107); Creatinine Clr Calc Pharmacy 154.6802; Globulin 2.7 g/dL (1.3-4.6); Glomerular Filtration Rate 127.6 mL/min (90-130); Glucose 88 mg/dL (65-115); Osmolality Calculated 284 mOsm/kg (285-295); Potassium 3.9 mmol/L (3.5-5.1); Sodium 138 mmol/L (136-145); Total Bilirubin 1.4 mg/dL (0.15-1.2); Total Protein 5.7 g/dL (6.6-8.7)
--- NOTE | 2023-06-07 06:42 | PC.NURSE ---
Shift Summary: Pt was awake throughout the entire night, maybe 30 minutes of sleep. Pt became agitated once and stated, I'm going to get myself thrown in senior living before I go the the stress unit .
[2023-06-07 08:39] LABS: Glucose Point of Care 140 mg/dL (70-110)
[2023-06-07] MEDS: TRAMadol 50 mg Tablet PO ×2 (09:56→16:50)
[2023-06-07] MEDS: amoxicillin-clav 875-125 mg Tablet 1 TAB PO ×2 (10:30→18:21)
--- NOTE | 2023-06-07 12:21 | PC.NURSE ---
Pain. Patient asking for pain medication for headache. Dr. Perez notified. No new orders.
--- NOTE | 2023-06-07 12:49 | P.PN_ITS ---
Subjective 2 Subjective: Patient is stating that her headache has not improved when I tell her that I will try Tylenol and ibuprofen she states she does not respond to them and only wants opioids Overnight CT head is unremarkable Spoke with Dr. Merritt who recommended transfer her to psych unit she is on 96- hour hold Vitals/I&O/Wt Last Vital Signs Temp 99.2 F 06/07/23 06:13 Pulse 67 06/07/23 11:00 Resp 15 06/07/23 11:00 BP 129/57 06/07/23 11:00 Pulse Ox 97 06/07/23 11:00 O2 Del Method Room Air 06/07/23 11:00 O2 Flow Rate 2 06/05/23 11:46 FiO2 100 06/06/23 15:00 06/06/23 06/07/23 06/07/23 22:59 06:59 14:59 Intake Total 860 / 1960 500 / 2460 240 / 240 Balance 860 / 1960 500 / 2460 240 / 240 Weight last 48 hrs Weight 79.424 kg Weight 77.99 kg Weight 77.99 kg Physical Exam 2 Narrative: Bradycardia improved Awake and alert GCS 15 Signs of dehydration improved as well Nonfocal neuroexam Pleasant cough No sign of meningitis Afebrile S1, S2 Data 06/07/23 04:45 06/07/23 04:45 A&P Assessment and plan (1) Drug overdose: (2) Acute drug overdose: Qualifiers: Encounter type: initial encounter Injury intent: intentional self-harm Qualified Code(s): T50.902A - Poisoning by unspecified drugs, medicaments and biological substances, intentional self-harm, initial encounter (3) Insomnia: (4) Lumbar disc disease: Plan Bradycardia has improved Nonfocal neuroexam She can be transferred to psych unit Continue 96-hour hold Continue holding AV heather blocking agent For migraine Tylenol and ibuprofen (avoid opioids.... If she does not respond to ibuprofen or Tylenol and then tramadol can be used) Full code Regular diet Attestations 2 Medical Necessity Statement*: Continue medical management Diagnoses Drug overdose T50.901A Acute drug overdose T50.902A Encounter type: initial encounter Injury intent: intentional self-harm Insomnia G47.00 Lumbar disc disease M51.9
--- NOTE | 2023-06-07 14:00 | PC.NURSE ---
Report called to LARRY Zamora, NPU. Patient wheeled to NPU by this nurse and security. Patient's belongings removed from ICU pyxis and handed over to NPU staff.
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
[2023-06-07 17:17] LABS: Glucose Point of Care 79 mg/dL (70-110)
[2023-06-07] MEDS: nicotine 4 mg lozenge MUCOUS MEM (18:07)
[2023-06-07 20:23] LABS: Glucose Point of Care 107 mg/dL (70-110)
[2023-06-07] MEDS: trazodone 100 mg Tablet 200 MG PO (20:36)
[2023-06-07] MEDS: hyDROXYzine 25 mg Capsule 50 MG PO (20:36)
[2023-06-07] MEDS: bisacodyl 5 mg Tablet PO (20:36)
[2023-06-07] MEDS: OLANZapine 5 mg ODT PO (20:37)
--- NOTE | 2023-06-07 23:06 | PC.NURSE ---
PT AT NURSES STATION WITH MULTIPLE REQUESTS. PT STATES SHE DOES NOT WANT TO TAKE HER 400 MG OF TRAZODONE AND ONLY WANTS HALF THE DOSE. REQUEST LAXATIVE DUE TO HAVING NO BM FOR 3 WEEKS, PT STATES THIS IS NORMAL AND SHE ONLY HAS A BM EVERY TWO TO THREE WEEKS. NEW ORDERS RECEIVED TO HOLD TRAZODONE 400 MG PO Q HS, ORDERS RECEIVVED FROM DR. STEEN TO GIVE 200 MG OF TRAZODONE AT HS TONIGHT. PT DENIES SI/HI AND AVH AT THIS TIME. RATES ANXIETY 11/16 A ND DEPRESSION 05/19. PT WAS GIVEN ZYDIS 5 MG ORDERED FOR ANXIETY. ORDERS RECEIVED FOR DULCULAX 5 MG PO DAILY, FIRST DOSE GIVEN WITH HS MEDICATIONS. PT IS NOTED TO HAVE A FLAT AFFECT AND DEPRESSED MOOD. ALL QUESTIONS ANSWERED AND SUPPORT VOICED.
--- NOTE | 2023-06-08 05:29 | PC.NURSE ---
PT RECEIVED PRNS THIS SHIFT TO DECREASE REPORTS OR INCREASED ANXIETY. PT WAS GIVEN ZYDIS, VISTARIL AND 200MG OF TRAZODONE. MEDICATIONS DEEMED EFFECTIVE. PT WAS ABLE TO REST AND HAS SLEPT APPROXIMATELY 8-9 HOURS THIS SHIFT. PT CONTINUES TO REST WITH EYES CLOSED WITH NO DISTRESS NOTED.
[2023-06-08 06:00] VITALS: RESP 18
--- NOTE | 2023-06-08 06:50 | PC.NURSE ---
pt refused vs [id number]
[2023-06-08 07:59] LABS: Glucose Point of Care 71 mg/dL (70-110)
--- NOTE | 2023-06-08 08:17 | PC.NURSE ---
Patient reports anxiety 09/16 because she is here, per patient. Patient denies depression, anxiety, SI, HI, AVH.
[2023-06-08] MEDS: multivitamin therapeutic Tablet 1 TAB PO (08:18)
[2023-06-08] MEDS: thiamine 100 mg Tablet PO (08:18)
[2023-06-08] MEDS: amoxicillin-clav 875-125 mg Tablet 1 TAB PO ×2 (08:18→18:06)
[2023-06-08] MEDS: hyDROXYzine 25 mg Capsule 50 MG PO (08:18)
[2023-06-08] MEDS: folic acid 1 mg Tablet PO (08:18)
[2023-06-08] MEDS: nicotine 21 mg Patch 1 PATCH TRANSDERMA (08:35)
[2023-06-08 09:01] LABS: Basophils % 0.4 %; Eosinophils # 0.1 10^3/uL (0.0-0.8); Eosinophils % 1.3 %; Hematocrit 37.9 % (36-47); Lymphocytes # 1.3 10^3/uL (0.8-4.8); Mean Corpuscular HGB Conc 34.6 g/dL (30-55); Mean Corpuscular Hemoglobin 31.8 pg (27-33); Mean Platelet Volume 9.7 fL (7.4-10.4); Monocytes # 0.4 10^3/uL (0.2-0.9); Monocytes % 7.3 %; Neutrophils # 3.72 10^3/uL (1.8-7.7); Neutrophils % 67.6 %; Nucleated Red Blood Cells % 0 %; Platelet Count 90 10^3/cmm (157-399); Red Blood Count 4.12 10^6/uL (3.85-5.65); Red Cell Distribution Width 14.7 % (12.1-15.1); White Blood Count 5.49 10^3/uL (3.29-11.43)
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
[2023-06-08 09:24] LABS: Alanine Aminotransferase 21 U/L (0-33); Albumin Level 3.2 g/dL (3.5-5.2); Alkaline Phosphatase 148 U/L (35-105); Anion Gap 17.1 (5-19); Aspartate Amino Transferase 36 U/L (0-32); Blood Urea Nitrogen 11 mg/dL (6-20); Calcium 8.7 mg/dL (8.5-10.5); Carbon Dioxide 22 mmol/L (22-29); Chloride 104 mmol/L (98-107); Creatinine Clr Calc Pharmacy 131.2702; Globulin 3.1 g/dL (1.3-4.6); Glomerular Filtration Rate 103.4 mL/min (90-130); Glucose 91 mg/dL (65-115); Osmolality Calculated 287 mOsm/kg (285-295); Potassium 4.1 mmol/L (3.5-5.1); Sodium 139 mmol/L (136-145); Total Bilirubin 1.9 mg/dL (0.15-1.2); Total Protein 6.3 g/dL (6.6-8.7)
[2023-06-08] MEDS: sertraline 100 mg Tablet PO (10:35)
[2023-06-08] MEDS: OLANZapine 5 mg ODT PO ×2 (10:35→16:33)
[2023-06-08 12:23] LABS: Glucose Point of Care 149 mg/dL (70-110)
[2023-06-08] MEDS: insulin lispro 100 unit/1 mL SUBCUT ×2 (13:02→20:23)
[2023-06-08 14:00] VITALS: BP 146/84; PULSE 101; RESP 17; TEMP 37.1; O2SAT 98
--- NOTE | 2023-06-08 14:23 | PC.NURSE ---
Verbal order given by this nurse on behalf of Dr. Looney to outpatient pharmacy for Vivitrol 380mg IM injection.
[2023-06-08] MEDS: naltrexone hcl 50 mg Tablet PO (14:52)
--- NOTE | 2023-06-08 16:05 | DCPLANNER ---
Imm was printed and given to Pt and copy placed in file.
--- NOTE | 2023-06-08 16:51 | PC.NURSE ---
patient anxious, states that she is stressed because she has to break it off with her current boyfriend and is nervous for his reaction. Patient reports chest pain. Administered zyprexa, VS obtained. Stat EKG ordered. Dr. Looney notified.
[2023-06-08] MEDS: nitroglycerin 0.4 mg sublingual Tablet 0.400000000000000022 MG SUBLINGUAL (16:59)
--- NOTE | 2023-06-08 17:37 | ECG_ITS ---
[facility] Test Date: 2023-06-08 Pat Name: Kay Calles Department: Room: 152 Gender: Female Research Investigator: : 1965 Requested By: Manjit Looney Order Number: [id number] Parker MD: Tom Ford M.D. Measurements Intervals [place] Rate: 78 P: 38 W[place]: 134 QRS: 29 QRSD: 90 T: 57 QT: 381 QTc: 435 Interpretive Statements SINUS RHYTHM Compared to ECG 06/05/2023 00:26:49 No significant changes Electronically Signed On 06-08-2023 18:00:54 MACHINE CEMENTER AND FOLDER by Tom Ford M.D. [email or web address] ([employer])laird hospitalOcean Renewable Power Companyblanchard valley health systemMindie/store/OM/[id number]
[2023-06-08 17:44] LABS: Glucose Point of Care 137 mg/dL (70-110)
[2023-06-08] MEDS: isosorbide mononitrate ER 30 mg Tablet PO (18:06)
[2023-06-08 20:07] LABS: Glucose Point of Care 144 mg/dL (70-110)
[2023-06-08] MEDS: haloperidol 5 mg Tablet PO (20:23)
[2023-06-08] MEDS: trazodone 100 mg Tablet 200 MG PO (20:23)
[2023-06-08 20:42] VITALS: BP 145/85; PULSE 79; RESP 16; TEMP 37.2; O2SAT 96
--- NOTE | 2023-06-08 21:30 | PC.NURSE ---
RESTING IN BED AROUSES TO VOICES. DENIES PAIN. DENIES SI/HI AND AVH AT THIS TIME. RATES ANXIETY 09/16 AND DEPRESSION /. PT WAS GIVEN HALDOL 5 MG FOR INCREASED ANXIETY AND TOOK SCHEDULED TRAZODONE 200 MG. PT STATES SHE WANTS TO REST DUE TO BEING VERY TIRED. ALL QUESTIONS ANSWERED AND SUPPORT WAS VOICED.
--- NOTE | 2023-06-09 05:10 | PC.NURSE ---
PT RECEIVED PRN MEDICATION EARLIER IN THE SHIFT FOR INCREASED ANXIETY. PT WAS GIVEN HALDOL 5 MG, MEDICATION DEEMED EFFECTIVE AT THIS TIME. PT ALSO TOOK SCHEDULED TRAZODONE 200 MG. PT WAS ABLE TO SLEEP THROUGH OUT THE SHIFT AND HAS SLEPT APPROXIMATELY 8-9 HOURS THIS SHIFT. PT GOT UP ONCE AND WALED AROUND THEN WENT TO BACK TO BED. PT CONTINUES TO REST WITH EYES CLOSED AND NO DISTRESS NOTED AT THIS TIME.
[2023-06-09 06:00] VITALS: BP 141/63; PULSE 87; RESP 16; O2SAT 91
[2023-06-09] MEDS: isosorbide mononitrate ER 30 mg Tablet PO (06:04)
[2023-06-09 08:38] LABS: Glucose Point of Care 100 mg/dL (70-110)
[2023-06-09] MEDS: amoxicillin-clav 875-125 mg Tablet 1 TAB PO ×2 (09:07→17:45)
[2023-06-09] MEDS: folic acid 1 mg Tablet PO (09:07)
[2023-06-09] MEDS: sertraline 100 mg Tablet PO (09:07)
[2023-06-09] MEDS: multivitamin therapeutic Tablet 1 TAB PO (09:07)
[2023-06-09] MEDS: nicotine 21 mg Patch 1 PATCH TRANSDERMA (09:08)
[2023-06-09] MEDS: naltrexone hcl 50 mg Tablet PO (09:08)
[2023-06-09] MEDS: thiamine 100 mg Tablet PO (09:08)
[2023-06-09] MEDS: acetaminophen 325 mg Tablet 650 MG PO (09:17)
[2023-06-09] MEDS: OLANZapine 5 mg ODT PO ×2 (09:56→20:01)
--- NOTE | 2023-06-09 09:58 | PC.NURSE ---
pt presents to nursing station with c/o severe headache @0900, pt given PRN tylenol. pt returned to nursing station at approx 0950, states no relief with tylenol and appears with mild tremors. pt states she is anxious. CIWA score 12. @0956 pt given PRN Zyprexa.
[2023-06-09] MEDS: LORazepam 2 mg Tablet PO (10:28)
--- NOTE | 2023-06-09 10:29 | PC.NURSE ---
pt returned to nursing station with c/o anxious & severe headache; CIWA remains 12, pt given PRN Ativan. see MAR
[2023-06-09 12:01] LABS: Glucose Point of Care 114 mg/dL (70-110)
[2023-06-09 14:00] VITALS: BP 119/58; PULSE 60; RESP 20; TEMP 36.8; O2SAT 94
--- NOTE | 2023-06-09 15:16 | P.NPUPN_ITS ---
Subjective NPU 2 Subjective: Patient is a 58-year-old female with alcohol dependence admitted with depression and an overdose on Zanaflex. Patient had reported no side effects from her naltrexone. She continued to complain of pain related issues. She had continued to minimize the severity of her alcohol related physical problems. Patient did report cravings for alcohol and stated that she was ready to consider Vivitrol. She had reported continued depression and reported stress at home with continued PTSD related symptoms. Mental Status Exam 2 MSE Comments: Patient is a casually dressed white female who was alert and oriented to person place and time. There was no evidence of any abnormal involuntary motor movements tics or tremors appreciated. She appeared in minimal distress although she had complained of significant back pain. Her gait was antalgic but otherwise normal. Her hygiene was fair. Her speech was normal in regards to rate rhythm and prosody. Her mood was described as better.. Her affect appeared mood incongruent and restricted. She endorsed no homicidal or suicidal ideation. She did not appear to be responding to internal stimuli. There was no evidence of delusional thinking. Her recent remote memory appeared grossly intact. Her insight and judgment were limited. Her impulse control appeared poor. Vitals/I&O/Wt Last Vital Signs Temp 98.9 F 06/08/23 20:42 Pulse 87 06/09/23 06:00 Resp 16 06/09/23 06:00 BP 141/63 06/09/23 06:00 Pulse Ox 91 06/09/23 06:00 O2 Del Method Room Air 06/09/23 06:00 O2 Flow Rate 2 06/05/23 11:46 FiO2 100 06/06/23 15:00 Data NPU 06/08/23 08:28 06/08/23 08:28 A&P Assessment and plan (1) Depression: (2) Suicidal ideation: (3) Alcohol use disorder, severe, dependence: (4) Borderline personality disorder: Plan This is a 58-year-old white female with multiple inpatient hospitalizations with a history of PTSD , major depression and borderline personality disorder transferred to NPU after overdose on zanaflex. 1.? ? Engage? patient in individual ,milieu, and group therapy ?2. ? Continue Trazodone 200mg at night and increase zoloft to 150mg daily. ?3. ? TO-15 minute checks on the unit. ?4.? Recommend sober living treatment at the highest level of care to which the patient is willing to commit. 5. ? discontinue CIWA protocol, patient to begin vivitrol 380mg im tommorow. Involuntary Hold Information 2 96 Hour Hold: 96 Hour Involuntary Admission: Yes 96 Hour Hold Ending Date: 06/11/23 96 Hour Hold Ending Time: 00:23 Attestations NPU 2 Medical Necessity Statement*: Inpatient hospitalization is medically necessary and deemed to be the clinically appropriate intervention at this time. We will monitor and initiate medications while making changes as indicated. She will be in the hospital for over 2 midnights. Her likely length of stay is 1-2 days. Coding Level of Care Code Acute Code for [facility] Fwd Diagnoses Depression F32.A Suicidal ideation R45.851 Alcohol use disorder, severe, dependence F10.20 Borderline personality disorder F60.3
[2023-06-09] MEDS: haloperidol 5 mg Tablet PO (16:12)
[2023-06-09 17:35] LABS: Glucose Point of Care 134 mg/dL (70-110)
[2023-06-09 19:35] LABS: Glucose Point of Care 174 mg/dL (70-110)
[2023-06-09] MEDS: trazodone 100 mg Tablet 200 MG PO (20:00)
[2023-06-09] MEDS: insulin lispro 100 unit/1 mL SUBCUT (20:01)
[2023-06-09 20:23] VITALS: BP 126/76; PULSE 62; RESP 16; O2SAT 94
[2023-06-10 06:00] VITALS: BP 131/61; PULSE 62; RESP 16; O2SAT 95
[2023-06-10] MEDS: isosorbide mononitrate ER 30 mg Tablet PO (06:12)
[2023-06-10] MEDS: ondansetron 4 MG Tablet PO (06:23)
[2023-06-10] MEDS: OLANZapine 5 mg ODT PO (06:24)
[2023-06-10 07:35] LABS: Glucose Point of Care 99 mg/dL (70-110)
[2023-06-10] MEDS: thiamine 100 mg Tablet PO (08:04)
[2023-06-10] MEDS: multivitamin therapeutic Tablet 1 TAB PO (08:04)
[2023-06-10] MEDS: folic acid 1 mg Tablet PO (08:04)
[2023-06-10] MEDS: naltrexone hcl 50 mg Tablet PO (08:04)
[2023-06-10] MEDS: sertraline 100 mg Tablet 150 MG PO (08:04)
[2023-06-10] MEDS: amoxicillin-clav 875-125 mg Tablet 1 TAB PO (08:04)
[2023-06-10] MEDS: VIVITROL 380 MG 1 EACH IM ×2 (10:46→12:45)
[2023-06-10] MEDS: acetaminophen 325 mg Tablet 650 MG PO (11:15)
[2023-06-10 11:55] LABS: Glucose Point of Care 146 mg/dL (70-110)
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
[2023-06-10 12:03] VITALS: BP 131/61; PULSE 62; RESP 16; O2SAT 95
[2023-06-10] MEDS: insulin lispro 100 unit/1 mL SUBCUT (12:43)
== END 2023-06-10 13:30 | disposition home or self-care (01) | DRG 918 ==
LOC: ER 00:47 → ICU 01:57 → NP 06-07 13:49
PROVIDERS: Admitting Provider Internal Medicine; Emergency Provider Emergency Medicine; PCP Family Medicine; Visit Provider Internal Medicine
DX: T42.8X2A Poisoning by antiparkinsonism drugs and other central muscle-tone depressants, intentional self-harm, initial encounter (principal); F33.2 Major depressive disorder, recurrent severe without psychotic features; T51.0X2A Toxic effect of ethanol, intentional self-harm, initial encounter; I95.89 Other hypotension; F10.229 Alcohol dependence with intoxication, unspecified; Y90.6 Blood alcohol level of 120-199 mg/100 ml; F12.21 Cannabis dependence, in remission; F43.12 Post-traumatic stress disorder, chronic; E11.40 Type 2 diabetes mellitus with diabetic neuropathy, unspecified; G89.29 Other chronic pain; M54.9 Dorsalgia, unspecified; F60.3 Borderline personality disorder; M16.0 Bilateral primary osteoarthritis of hip; E87.6 Hypokalemia; E86.0 Dehydration; K75.81 Nonalcoholic steatohepatitis (NASH); R00.1 Bradycardia, unspecified; Z87.891 Personal history of nicotine dependence; Z63.8 Other specified problems related to primary support group; Z81.8 Family history of other mental and behavioral disorders
CPT/HCPCS: 36415; 36416; 70450; 71045; 80053; 80306; 80307; 81025; 82962; 83735; 84484; 85025; 93005; 96372; 96374; 97150; 97165; 99285; J0171; J1644; J1815; J2270; J2405; J3480; J7040; J7050; Q0162

== ENCOUNTER → 2023-06-14 11:59 | Outpatient (BNVA) | payer MEDICARE, OTHER, SELFPAY ==
[2023-05-28 06:42] VITALS: BP 110/72; BMI 37.9
== END ==
PROVIDERS: PCP Family Medicine; Visit Provider Nurse Practitioner Psychiatric/Mental Health
DX: F60.3 Borderline personality disorder (principal); F12.20 Cannabis dependence, uncomplicated; F10.20 Alcohol dependence, uncomplicated; Z79.899 Other long term (current) drug therapy
CPT/HCPCS: 80061; 83036

== ENCOUNTER 2023-06-24 16:48 | Emergency (ER) | payer MEDICARE, MEDICAID, SELFPAY ==
[2023-05-28 06:42] VITALS: BP 110/72; BMI 37.9
[2023-06-24 17:05] VITALS: BP 145/90; PULSE 65; RESP 18; TEMP 37.1; O2SAT 98; BMI 36.3
--- NOTE | 2023-06-24 17:19 | W.ED.EXTPRO ---
HPI - Extremity Problem General: Chief complaint: Extremity Problem,Nontraumatic Stated complaint: right arm pain Time Seen by Provider: 06/24/23 17:06 History of Present Illness: 58-year-old female has some right upper arm pain. Patient reports that she had a injection about a week ago in her right upper arm and has noticed some swelling and tenderness. Patient is concerned that she may have a blood clot. Patient appears nontoxic. Patient appears in mild to moderate pain. Review of Systems General: Reports: 10 or more systems reviewed and unremarkable except in HPI and below Musc: Reports: extremity pain PFSH ED PFSH: Medical History Suicidal ideation Cannabis dependence, episodic use last use 03/26/23 Major depressive disorder, recurrent, severe with psychotic symptoms Nicotine dependence due to vaping tobacco product Vaping nicotine Chronic post-traumatic stress disorder Alcohol use disorder, severe, dependence last use 03/26/23 Psychiatric care Uncontrolled type 2 diabetes with neuropathy Sacroiliitis H/O Belkys-Valenzuela syndrome (~07/2019) EGD at [facility]. EGD 10/26 negative. Chronic back pain Congestive heart failure Diabetes mellitus MONTANO (nonalcoholic steatohepatitis) Borderline personality disorder Bilateral primary osteoarthritis of hip Surgical History History of hysterectomy History of esophagogastroduodenoscopy H/O colonoscopy H/O cervical spine surgery Family History Son Suicide September 2019 Other Cancer Hypertension Psychiatric illness Social History (Updated 06/14/23 @ 12:15 by Alecia Jo RN) Smoking and tobacco/nicotine status: current every day tobacco/nicotine user cigarettes [ Other cigarette details: When vape breaks she returns to cigarettes] and e-cigarettes E-Cigarette Details: vaporizer device and with nicotine E-cig/vape details: 6000 puffs in each device, uses 3 per month Quit status (tobacco/nicotine): not considering quitting Second hand smoke exposure: Yes Alcohol intake: current Alcohol intake frequency: few times a month Alcohol type: hard liquor Substance/Drug Use: current Substance/Drug use frequency: daily Other substance/drug use details: medical card Adopted: No Caregiver/support person: Yes (cleans and runs errands) Lives independently: Yes Household members: none Housing: Apartment Marital status: Single Number of children: 2 Number of grandchildren: 0 Highest education level completed: Associate Degree: Occupational, Technical, Vocational Program Education level details: [employer]ENTICE service: No Current occupational status: disabled Current occupational exposures/hazards: No Pets and animals: Yes Pets & animals: cat(s) Leisure activites: music, games and other Leisure activities details: watch a lot of movies Sexually active: No Do you think of yourself as: Straight/Heterosexual Current gender identity: Female Aparna/Sikhism: Mosque Special aparna needs: No Agree to transfusion: Yes Female Reproductive History: Para: 2 Spontaneous abortions: Yes (10) Physical Exam Const: COMMON NORMALS: alert HENMT: COMMON NORMALS: normocephalic HEAD & SCALP: normocephalic Neck/C-Spine: COMMON NORMALS: full ROM Resp: COMMON NORMALS: normal respiratory effort and clear to auscultation bilaterally AUSCULTATION: clear to auscultation bilaterally Cardio: COMMON NORMALS: regular rate RATE: regular rate Back/Pelvis: COMMON NORMALS: thoracic and lumbar spine normal to inspection Extremity: COMMON NORMALS: full ROM RIGHT UPPER EXTREMITY: Yes upper arm (Hematoma noted to the deltoid no redness no fever) Neuro: SENSORIUM/ORIENTATION: Yes alert Skin: COMMON NORMALS: turgor normal GENERAL SKIN EXAM: turgor normal Course Vital Signs: Vital signs: Vital Signs Temperature 98.8 F 06/24/23 17:05 Pulse Rate 65 06/24/23 17:05 Respiratory Rate 18 06/24/23 17:05 Blood Pressure 145/90 06/24/23 17:05 Pulse Oximetry 98 06/24/23 17:05 Oxygen Delivery Me thod Room Air 06/24/23 17:05 MDM - Extremity (Nontraumatic) Medical Decision Making 58-year-old female comes in today with bruising to the right upper arm. On exam there is a hematoma noted to the deltoid that is tender to touch. No fever, no induration or redness. No distal swelling is noted. Pulses intact distally. Differential diagnosis includes hematoma, unlikely DVT, abscess, cellulitis. Patient appears to have a hematoma secondary to her injection site. Recommended warm packs to the area and Tylenol or ibuprofen for pain. Patient is unable to tolerate medications due to liver disease. Patient be given some hydrocodone to use as needed for pain and otherwise he will use ice or heat. Patient reported understanding agreed to plan. No radiology studies performed this visit Discharge Plan Discharge Patient Disposition: Home Clinical Impression: Hematoma of right upper extremity Condition: Stable Prescriptions: New hydrocodone-acetaminophen 5-325 mg tablet 1 tab PO Q8H PRN (Reason: pain) Qty: 10 0RF No Action (DME) [place] AFO to the left See Rx Instructions .Route .MEDSUPPLY Qty: 1 0RF Rx Instructions: As directed epinephrine 0.3 mg/0.3 mL auto-injector 0.3 mg IM Q10M PRN (Reason: Anaphylaxis) Rx Instructions: for 2 doses isosorbide mononitrate 30 mg tablet extended release 24 hr 30 mg PO DAILY hydroxyzine pamoate 50 mg capsule 50 mg PO BID trazodone 100 mg tablet 100 mg PO BEDTIME Rx Instructions: Take one tablet with 300 mg tablet 30 min prior to bedtime, total dose 400 mg trazodone 300 mg tablet 300 mg PO BEDTIME Rx Instructions: Take one tablet with 100 mg tablet 30 min prior to bedtime tramadol 50 mg tablet 50 mg PO Q8H PRN (Reason: pain) Qty: 14 0RF nitroglycerin [Nitrostat] 0.4 mg Tablet, Sublingual 0.4 mg SUBLINGUAL Q5M PRN (Reason: Chest Pain) Rx Instructions: do not exceed 3 doses per episode acetaminophen [Tylenol] 325 mg Tablet 650 mg PO Q6H PRN (Reason: Pain) albuterol sulfate 90 mcg/actuation Hfa Aerosol Inhaler 2 puff INHALATION QID PRN (Reason: Shortness Of Breath Or Wheezing) sertraline 100 mg Tablet 150 mg PO DAILY 30 Days Qty: 45 1RF Vivitrol 380 mg suspension,extended rel recon 380 mg IM ONCE Qty: 1 1RF Rx Instructions: Due Date 07/08/23 [facility] Discharge Orders: Discharge ED (Routine); Ordered 06/24/23 Ordered By: Migue Churchill Referrals: Tam Del Valle MD [Primary Care Provider] - Discharge Diet: Usual diet Discharge Activity: Increase activity as tolerated Patient Instructions: Hematoma (ED) Activity Restrictions/Additional Instructions: Warm moist packs to the arm to help resolve the hematoma. You may use ice to help with discomfort. Drink plenty of water. Activity as tolerated. Follow-up with primary care for recheck. Return to ED for worsening symptoms such as fever, increasing redness or swelling to the distal arm, or new concerns. Coding Level of Care Code ED Paper Cone Grader for Rober Arellano
[2023-06-24 17:43] VITALS: BP 123/81; PULSE 65; O2SAT 98
== END 2023-06-24 17:44 | disposition home or self-care (01) ==
PROVIDERS: Emergency Provider Nurse Practitioner Family; PCP Family Medicine
DX: S40.021A Contusion of right upper arm, initial encounter (principal); F17.210 Nicotine dependence, cigarettes, uncomplicated; F17.290 Nicotine dependence, other tobacco product, uncomplicated; E11.42 Type 2 diabetes mellitus with diabetic polyneuropathy; I50.9 Heart failure, unspecified; X58.XXXA Exposure to other specified factors, initial encounter
CPT/HCPCS: 99283

== ENCOUNTER → 2023-07-26 09:46 | Outpatient (BNVA) | payer MEDICARE, SELFPAY ==
[2023-06-26 14:03] VITALS: BP 147/78; BMI 37.0
== END ==
PROVIDERS: PCP Family Medicine; Visit Provider Family Medicine
DX: R06.02 Shortness of breath; M47.814 Spondylosis without myelopathy or radiculopathy, thoracic region
CPT/HCPCS: 71046

== ENCOUNTER 2023-07-28 13:36 | Emergency (ER) | payer MEDICARE, MEDICAID, SELFPAY ==
[2023-06-26 14:03] VITALS: BP 147/78; BMI 37.0
[2023-07-28 13:37] VITALS: BP 133/77; PULSE 76; RESP 20; TEMP 37.1; O2SAT 98
--- NOTE | 2023-07-28 13:38 | XRR_ITS ---
PROCEDURE INFORMATION: Exam: XR Chest Exam date and time: 07/28/2023 2:03 PM Age: 58 years old Clinical indication: Shortness of breath; Additional info: SOB TECHNIQUE: Imaging protocol: Radiologic exam of the chest. Views: 1 view. COMPARISON: CR XR chest 2V* [id number] 07/26/2023 9:54 AM FINDINGS: Lungs: No focal consolidation. Pleural spaces: No pleural effusion. No pneumothorax. Heart/Mediastinum: No cardiomegaly. Bones/joints: No acute findings. XR/XR chest 1V portable [id number] IMPRESSION: No acute findings.
--- NOTE | 2023-07-28 13:46 | ED_ITS ---
HPI - URI/Sore Throat 2 General: Chief Complaint: Upper Respiratory Infection Stated Complaint: SOB Time Seen by Provider: 07/28/23 13:40 Source: patient Mode of arrival: ambulatory Limitations: no limitations History of Present Illness: 58-year-old female who has a history of COPD she states she has been having cough congestion wheezing for the last 3 months gotten worse the last few weeks states she been on steroids currently over the last 2 days she is on antibiotic currently from her PCP as well as states she is continue have some cough. She denies any chest pain had no fever she is talking complaints since is here Associated symptoms: Deny abdominal pain, chills, chest pain, diarrhea, fever(s), headache(s), nausea or vomiting Review of Systems 2 Const: Denies: fever(s), chills, body aches or change in appetite ENMT: Denies: throat pain or dental pain Card: Denies: chest pain Resp: Reports: dyspnea, non-productive cough and wheezing GI: Denies: abdominal pain, nausea, vomiting or diarrhea Musc: Denies: neck pain or back pain Skin/Breast: Denies: rash Neuro: Denies: headache(s) PFSH ED 2 PFSH: Medical History Suicidal ideation Cannabis dependence, episodic use last use 03/26/23 Major depressive disorder, recurrent, severe with psychotic symptoms Nicotine dependence due to vaping tobacco product Vaping nicotine Chronic post-traumatic stress disorder Alcohol use disorder, severe, dependence last use 03/26/23 Psychiatric care Uncontrolled type 2 diabetes with neuropathy Sacroiliitis H/O Belkys-Valenzuela syndrome (~07/2019) EGD at [facility] [place] EGD 10/26 negative. Chronic back pain Congestive heart failure Diabetes mellitus MONTANO (nonalcoholic steatohepatitis) Borderline personality disorder Bilateral primary osteoarthritis of hip Surgical History History of hysterectomy History of esophagogastroduodenoscopy H/O colonoscopy H/O cervical spine surgery Family History Son Suicide September 2019 Other Cancer Hypertension Psychiatric illness Social History Smoking and tobacco/nicotine status: current every day tobacco/nicotine user cigarettes [ Other cigarette details: When vape breaks she returns to cigarettes] and e-cigarettes E-Cigarette Details: vaporizer device and with nicotine E-cig/vape details: 6000 puffs in each device, uses 3 per month Quit status (tobacco/nicotine): not considering quitting Second hand smoke exposure: Yes Alcohol intake: current Alcohol intake frequency: few times a month Alcohol type: hard liquor Substance/Drug Use: current Substance/Drug use frequency: daily Other substance/drug use details: medical card Adopted: No Caregiver/support person: Yes (cleans and runs errands) Lives independently: Yes Household members: none Housing: Apartment Marital status: Single Number of children: 2 Number of grandchildren: 0 Highest education level completed: Associate Degree: Occupational, Technical, Vocational Program Education level details: [facility] service: No Current occupational status: disabled Current occupational exposures/hazards: No Pets and animals: Yes Pets & animals: cat(s) Leisure activites: music, games and other Leisure activities details: watch a lot of movies Sexually active: No Do you think of yourself as: Straight/Heterosexual Current gender identity: Female Aparna/Voodoo: Bahai Special aparna needs: No Agree to transfusion: Yes Female Reproductive History: Para: 2 Spontaneous abortions: Yes (10) Physical Exam 2 Const: COMMON NORMALS: no acute distress, patient oriented x3 and healthy appearing HENMT: COMMON NORMALS: normocephalic and atraumatic HEAD & SCALP: n ormocephalic and atraumatic Eye: COMMON NORMALS: conjunctivae normal CONJUNCTIVA: Yes conjunctivae normal Neck/C-Spine: COMMON NORMALS: full ROM and supple Chest: COMMONS NORMALS: normal inspection of the chest Resp: COMMON NORMALS: normal respiratory effort, No retractions and No use of accessory muscles AUSCULTATION: wheezes Cardio: COMMON NORMALS: regular rate, regular rhythm and No murmurs present (Cardio) RATE: regular rate RHYTHM: regular rhythm Extremity: COMMON NORMALS: normal to inspection and full ROM Neuro: COMMON NORMALS: patient oriented x3, moves all extremities and no focal motor deficits Psych: COMMON NORMALS: mental status grossly normal, Normal thought process present and cooperative THOUGHT PROCESS: Normal thought process present Skin: COMMON NORMALS: no rashes or lesions noted and no wounds GENERAL SKIN EXAM: no rashes or lesions noted Course 2 Vital Signs: Vital signs: Vital Signs Temperature 98.8 F 07/28/23 13:37 Pulse Rate 61 07/28/23 14:11 Respiratory Rate 16 07/28/23 14:08 Blood Pressure 133/77 07/28/23 13:37 Pulse Oximetry 94 07/28/23 14:08 Oxygen Delivery Me thod Room Air 07/28/23 14:08 MDM - URI/Sore Throat Medical Decision Making Patient presents here with cough that is been ongoing she is well-appearing here she has no signs pneumonia does have a mildly elevated bilirubin on her lab work no abdominal pain or tenderness did inform her she is to follow-up with her PCP to have a recheck did give her steroid here she is stable for discharge return if worsening. Medical Records I reviewed the patient's medical records. Lab Data I reviewed the patient's lab results. 07/28/23 14:00 07/28/23 14:00 Radiology Impressions Chest X-Ray 07/28/23 13:38 IMPRESSION: No acute findings. Laboratory Results WBC 5.77 10^3/uL (3.29-11.43) 07/28/23 14:00 RBC 3.92 10^6/uL (3.85-5.65) 07/28/23 14:00 Hgb 12.30 g/dL (11.27-16.99) 07/28/23 14:00 Hct 35.3 % (36-47) L 07/28/23 14:00 MCV 90.1 fl (85-98) 07/28/23 14:00 MCH 31.4 pg (27-33) 07/28/23 14:00 MCHC 34.8 g/dL (30-55) 07/28/23 14:00 RDW 15.2 % (12.1-15.1) H 07/28/23 14:00 Plt Count 111 10^3/cmm (157-399) L 07/28/23 14:00 MPV 9.7 fL (7.4-10.4) 07/28/23 14:00 Neut % (Auto) 78.1 % 07/28/23 14:00 Lymph % (Auto) 11.6 % 07/28/23 14:00 [place] % (Auto) 8.0 % 07/28/23 14:00 Eos % (Auto) 1.6 % 07/28/23 14:00 Baso % (Auto) 0.2 % 07/28/23 14:00 Neut # (Auto) 4.51 10^3/uL (1.8-7.7) 07/28/23 14:00 Lymph # (Auto) 0.7 10^3/uL (0.8-4.8) L 07/28/23 14:00 [place] # (Auto) 0.5 10^3/uL (0.2-0.9) 07/28/23 14:00 Eos # (Auto) 0.1 10^3/uL (0.0-0.8) 07/28/23 14:00 Baso # (Auto) 0.0 10^3/uL (0.0-0.1) 07/28/23 14:00 Nucleated RBC % (auto) 0 % 07/28/23 14:00 Nucleated RBCs # 0.0 /100WBC 07/28/23 14:00 Sodium 140 mmol/L (136-145) 07/28/23 14:00 Potassium 2.9 mmol/L (3.5-5.1) L 07/28/23 14:00 Chloride 103 mmol/L (98-107) 07/28/23 14:00 Carbon Dioxide 29 mmol/L (22-29) 07/28/23 14:00 Anion Gap 10.9 (5-19) 07/28/23 14:00 BUN 8 mg/dL (6-20) 07/28/23 14:00 Creatinine 0.6 mg/dL (0.5-0.9) 07/28/23 14:00 GFR Calculation 103.4 mL/min (90-130) 07/28/23 14:00 Glucose 162 mg/dL (65-115) H 07/28/23 14:00 Calculated Osmolality 292 mOsm/kg (285-295) 07/28/23 14:00 Calcium 8.6 mg/dL (8.5-10.5) 07/28/23 14:00 Total Bilirubin 3.1 mg/dL (0.15-1.2) H 07/28/23 14:00 AST 146 U/L (0-32) H 07/28/23 14:00 ALT 67 U/L (0-33) H 07/28/23 14:00 Alkaline Phosphatase 184 U/L (35-105) H 07/28/23 14:00 Total Protein 5.9 g/dL (6.6-8.7) L 07/28/23 14:00 Albumin 3.1 g/dL (3.5-5.2) L 07/28/23 14:00 Globulin 2.8 g/dL (1.3-4.6) 07/28/23 14:00 All radiology interpretation(s) finalized by discharge EKG Data EKG 1: I personally reviewed and interpreted this EKG as follows: EKG interpretation date: 07/28/23 EKG interpretation time: 13:51 Interpretation: nsr hr [address] or t wave abnormalities qrs 86 qtc 486 Discharge Plan Discharge Patient Disposition: Home Clinical Impression: COPD (chronic obstructive pulmonary disease) Condition: Stable Prescriptions: No Action (DME) [place] AFO to the left See Rx Instructions .Route .MEDSUPPLY Qty: 1 0RF Rx Instructions: As directed epinephrine 0.3 mg/0.3 mL auto-injector 0.3 mg IM Q10M PRN (Reason: Anaphylaxis) Rx Instructions: for 2 doses albuterol sulfate 90 mcg/actuation HFA aerosol inhaler 1 inh inhalation QID PRN (Reason: shortness of breath or wheezing) Qty: 8.5 0RF prednisone 20 mg tablet 40 mg PO DAILY 5 Days Qty: 10 0RF levofloxacin 750 mg tablet 750 mg PO DAILY Qty: 7 0RF budesonide-formoterol [Symbicort] 160-4.5 mcg/actuation HFA aerosol inhaler 1 puff inhalation BID Qty: 10.2 1RF isosorbide mononitrate 30 mg tablet extended release 24 hr 30 mg PO DAILY hydroxyzine pamoate 50 mg capsule 50 mg PO BID trazodone 100 mg tablet 100 mg PO BEDTIME Rx Instructions: Take one tablet with 300 mg tablet 30 min prior to bedtime, total dose 400 mg trazodone 300 mg tablet 300 mg PO BEDTIME Rx Instructions: Take one tablet with 100 mg tablet 30 min prior to bedtime nitroglycerin [Nitrostat] 0.4 mg Tablet, Sublingual 0.4 mg SUBLINGUAL Q5M PRN (Reason: Chest Pain) Rx Instructions: do not exceed 3 doses per episode sertraline 100 mg Tablet 150 mg PO DAILY 30 Days Qty: 45 1RF Discharge Orders: Discharge ED (Routine); Ordered 07/28/23 Ordered By: Carmela Haro Referrals: Tam Del Valle MD [Primary Care Provider] - 1-3 days Discharge Diet: Advance as tolerated Discharge Activity: Resume usual activity Patient Instructions: COPD (Chronic Obstructive Pulmonary Disease) (ED) Coding Level of Care Code ED Binder Stripper Machine for Rober Arellano
--- NOTE | 2023-07-28 13:51 | ECG_ITS ---
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 Measurements Intervals [place] Rate: 63 P: 61 WI: 152 QRS: 73 QRSD: 86 T: 64 QT: 479 QTc: 492 Interpretive Statements SINUS RHYTHM PROLONGED QT INTERVAL Compared to ECG 06/08/2023 17:37:52 Prolonged QT interval now present Electronically Signed On 07-29-2023 8:11:28 CDT by Sanket Wiley M.D. [id number]
[2023-07-28] MEDS: dexamethasone 10 mg/mL INJ IVP (14:00)
[2023-07-28 14:08] VITALS: PULSE 63; RESP 16; O2SAT 94
[2023-07-28] MEDS: ipratropium-albuterol 3 mL Neb INHALATION (14:08)
[2023-07-28 14:11] VITALS: PULSE 61
[2023-07-28 14:20] LABS: Basophils % 0.2 %; Eosinophils # 0.1 10^3/uL (0.0-0.8); Eosinophils % 1.6 %; Hematocrit 35.3 % (36-47); Lymphocytes # 0.7 10^3/uL (0.8-4.8); Lymphocytes % 11.6 %; Mean Corpuscular HGB Conc 34.8 g/dL (30-55); Mean Corpuscular Hemoglobin 31.4 pg (27-33); Mean Corpuscular Volume 90.1 fl (85-98); Mean Platelet Volume 9.7 fL (7.4-10.4); Monocytes # 0.5 10^3/uL (0.2-0.9); Neutrophils # 4.51 10^3/uL (1.8-7.7); Neutrophils % 78.1 %; Nucleated Red Blood Cells % 0 %; Platelet Count 111 10^3/cmm (157-399); Red Blood Count 3.92 10^6/uL (3.85-5.65); Red Cell Distribution Width 15.2 % (12.1-15.1); White Blood Count 5.77 10^3/uL (3.29-11.43)
[2023-07-28 14:39] LABS: Alanine Aminotransferase 67 U/L (0-33); Albumin Level 3.1 g/dL (3.5-5.2); Alkaline Phosphatase 184 U/L (35-105); Anion Gap 10.9 (5-19); Aspartate Amino Transferase 146 U/L (0-32); Blood Urea Nitrogen 8 mg/dL (6-20); Calcium 8.6 mg/dL (8.5-10.5); Carbon Dioxide 29 mmol/L (22-29); Chloride 103 mmol/L (98-107); Creatinine Clr Calc Pharmacy 120.6991; Globulin 2.8 g/dL (1.3-4.6); Glomerular Filtration Rate 103.4 mL/min (90-130); Glucose 162 mg/dL (65-115); Osmolality Calculated 292 mOsm/kg (285-295); Sodium 140 mmol/L (136-145); Total Bilirubin 3.1 mg/dL (0.15-1.2); Total Protein 5.9 g/dL (6.6-8.7)
[2023-07-28 14:54] LABS: Potassium 2.9 mmol/L (3.5-5.1)
[2023-07-28 16:10] LABS: Adenovirus Not Detected (NOT DETECT); Chlamydia Pneumoniae Not Detected (NOT DETECT); Coronavirus 229E,HKU1,NL63,OC4 Not Detected (NOT DETECT); Human Metapneumovirus Not Detected (NOT DETECT); Human Rhinovirus/Enterovirus Not Detected (NOT DETECT); Influenza A Not Detected (NOT DETECT); Influenza A H1 Not Detected (NOT DETECT); Influenza A H1-2009 Not Detected (NOT DETECT); Influenza A H3 Not Detected (NOT DETECT); Influenza B Not Detected (NOT DETECT); Mycoplasma Pneumoniae Not Detected (NOT DETECT); Parainfluenza Virus Type 1 Not Detected (NOT DETECT); Parainfluenza Virus Type 2 Not Detected (NOT DETECT); Parainfluenza Virus Type 3 Not Detected (NOT DETECT); Parainfluenza Virus Type 4 Not Detected (NOT DETECT); Respiratory Syncytial Virus A Not Detected (NOT DETECT); Respiratory Syncytial Virus B Not Detected (NOT DETECT); SARS-COV-2 Not Detected (NOT DETECT)
== END 2023-07-28 15:27 | disposition home or self-care (01) ==
PROVIDERS: Emergency Provider Emergency Medicine; PCP Family Medicine
DX: J44.9 Chronic obstructive pulmonary disease, unspecified (principal); F17.210 Nicotine dependence, cigarettes, uncomplicated; F17.290 Nicotine dependence, other tobacco product, uncomplicated; E11.42 Type 2 diabetes mellitus with diabetic polyneuropathy; I50.9 Heart failure, unspecified
CPT/HCPCS: 71045; 80053; 85025; 87486; 87581; 87633; 93005; 94640; 96374; 99285; J1100

== ENCOUNTER 2023-09-07 15:00 | Emergency (ER) | payer MEDICARE, MEDICAID, SELFPAY ==
[2023-06-26 14:03] VITALS: BP 147/78; BMI 37.0
[2023-09-07 15:09] VITALS: BP 136/68; PULSE 65; RESP 18; TEMP 36.6; O2SAT 100
--- NOTE | 2023-09-07 15:35 | W.ED.FALL ---
HPI - Fall General: Chief Complaint: Fall Stated Complaint: fall. Time Seen by Provider: 09/07/23 15:08 History of Present Illness: The patient, a 58-year-old individual, presents to the emergency room today after consuming an excessive amount of alcohol last night due to anxiety about future prospects such as college and employment. The patient reports that in a state of intoxication, they fell and now believes to have sustained a hand injury. 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 The patient describes the pain as severe, localized to a specific area on the hand where there is a visible bruise, and states that making a fist exacerbates the pain to an unbearable level. Additionally, the patient reports numbness in the fingers. No other injuries or pain elsewhere on the body are reported. The patient has not yet received any treatment or imaging for the injury prior to this consultation. Review of Systems General: Reports: 10 or more systems reviewed and unremarkable except in HPI and below PFSH ED PFSH: Medical History Suicidal ideation Cannabis dependence, episodic use last use 03/26/23 Major depressive disorder, recurrent, severe with psychotic symptoms Nicotine dependence due to vaping tobacco product Vaping nicotine Chronic post-traumatic stress disorder Alcohol use disorder, severe, dependence last use 03/26/23 Psychiatric care Uncontrolled type 2 diabetes with neuropathy Sacroiliitis H/O Belkys-Valenzuela syndrome (~07/2019) EGD at [facility]. EGD 10/26 negative. Chronic back pain Congestive heart failure Diabetes mellitus MONTANO (nonalcoholic steatohepatitis) Borderline personality disorder Bilateral primary osteoarthritis of hip Surgical History History of hysterectomy History of esophagogastroduodenoscopy H/O colonoscopy H/O cervical spine surgery Family History Son Suicide September 2019 Other Cancer Hypertension Psychiatric illness Social History Smoking and tobacco/nicotine status: current every day tobacco/nicotine user cigarettes [ Other cigarette details: When vape breaks she returns to cigarettes] and e-cigarettes E-Cigarette Details: vaporizer device and with nicotine E-cig/vape details: 6000 puffs in each device, uses 3 per month Quit status (tobacco/nicotine): not considering quitting Second hand smoke exposure: Yes Alcohol intake: current Alcohol intake frequency: few times a month Alcohol type: hard liquor Substance/Drug Use: current Substance/Drug use frequency: daily Other substance/drug use details: medical card Adopted: No Caregiver/support person: Yes (cleans and runs errands) Lives independently: Yes Household members: none Housing: Apartment Marital status: Single Number of children: 2 Number of grandchildren: 0 Highest education level completed: Associate Degree: Occupational, Technical, Vocational Program Education level details: [facility] service: No Current occupational status: disabled Current occupational exposures/hazards: No Pets and animals: Yes Pets & animals: cat(s) Leisure activites: music, games and other Leisure activities details: watch a lot of movies Sexually active: No Do you think of yourself as: Straight/Heterosexual Current gender identity: Female Aparna/Hoahaoism: Restorationism Special aparna needs: No Agree to transfusion: Yes Female Reproductive History: Para: 2 Spontaneous abortions: Yes (10) Physical Exam Const: COMMON NORMALS: no acute distress, patient oriented x3, healthy appearing, alert and well nourished HENMT: COMMON NORMALS: normocephalic HEAD & SCALP: normocephalic Eye: COMMON NORMALS: EOMs intact bilaterally Neck/C-Spine: COMMON NORMALS: full ROM and supple Resp: COMMON NORMALS: normal respiratory effort, No retractions and clear to auscultation bilaterally AUSCULTATION: clear to auscultation bilaterally Cardio: COMMON NORMALS: regular rate, regular rhythm, No gallops present (Cardio) and No murmurs present (Cardio) RATE: regular rate RHYTHM: regular rhythm GI: COMMON NORMALS: Soft to palpation and non-tender PALPATION: Yes Soft to palpation Extremity: GENERAL: Yes normal exam except as noted RIGHT UPPER EXTREMITY: Yes hand & digits Right hand and digits: Yes inspection (Significant swelling and ecchymosis on the lateral dorsum of the right hand), Yes palpation (Significant tenderness to palpation over the entire hand), Yes ROM exam (Range of motion not able to be evaluated secondary to pain) and Yes neurovascular exam (Decreased sensation in the distal third fourth and fifth digit) Neuro: COMMON NORMALS: patient oriented x3 SENSORIUM/ORIENTATION: Yes alert Skin: COMMON NORMALS: no rashes or lesions noted GENERAL SKIN EXAM: no rashes or lesions noted Course Vital Signs: Vital signs: Vital Signs Temperature 97.9 F 09/07/23 15:09 Pulse Rate 65 09/07/23 17:08 Respiratory Rate 16 09/07/23 17:08 Blood Pressure 131/69 09/07/23 17:08 Pulse Oximetry 98 09/07/23 17:08 Oxygen Delivery Me thod Room Air 09/07/23 15:09 MDM - Fall Medical Decision Making 58-year-old female presents emergency department after a fall with right hand pain. Patient has fracture to the fifth metatarsal on her right hand. Case discussed with Dr. Lamas. He agreed that the patient was appropriate for outpatient management. She was placed in a ulnar gutter splint with at least 70 degrees of flexion at the MCP joint. Patient's pain control is difficult as she states she cannot take Tylenol or ibuprofen due to liver problems. Prescribed a judicious amount of Roxicodone for pain management as an outpatient. Return precautions were discussed. Patient discharged home in good condition. Lab Data Radiology Impressions Hand X-Ray 09/07/23 15:38 IMPRESSION: Acute comminuted minimally displaced fracture of the distal 5th metacarpal head with involvement of the articular surface. No dislocation. Wrist X-Ray 09/07/23 15:38 IMPRESSION: Acute comminuted minimally displaced fracture of the distal 5th metacarpal head with involvement of the articular surface. No dislocation. All radiology interpretation(s) finalized by discharge Discharge Plan Discharge Patient Disposition: Home Clinical Impression: Fracture of fifth metacarpal bone of right hand Qualifiers: Encounter type: initial encounter Fracture type: closed Metacarpal location: other portion of metacarpal Fracture alignment: nondisplaced Qualified Code(s): S62.396A - Other fracture of fifth metacarpal bone, right hand, initial encounter for closed fracture Condition: Stable Prescriptions: New Roxicodone 15 mg tablet 7.5 mg PO Q8H PRN (Reason: pain) Qty: 7 0RF No Action (DME) [place] AFO to the left See Rx Instructions .Route .MEDSUPPLY Qty: 1 0RF Rx Instructions: As directed epinephrine 0.3 mg/0.3 mL auto-injector 0.3 mg IM Q10M PRN (Reason: Anaphylaxis) Rx Instructions: for 2 doses albuterol sulfate 90 mcg/actuation HFA aerosol inhaler 1 inh inhalation QID PRN (Reason: shortness of breath or wheezing) Qty: 8.5 0RF prednisone 20 mg tablet 40 mg PO DAILY 5 Days Qty: 10 0RF levofloxacin 750 mg tablet 750 mg PO DAILY Qty: 7 0RF budesonide-formoterol [Symbicort] 160-4.5 mcg/actuation HFA aerosol inhaler 1 puff inhalation BID Qty: 10.2 1RF isosorbide mononitrate 30 mg tablet extended release 24 hr 30 mg PO DAILY hydroxyzine pamoate 50 mg capsule 50 mg PO BID trazodone 100 mg tablet 100 mg PO BEDTIME Rx Instructions: Take one tablet with 300 mg tablet 30 min prior to bedtime, total dose 400 mg trazodone 300 mg tablet 300 mg PO BEDTIME Rx Instructions: Take one tablet with 100 mg tablet 30 min prior to bedtime nitroglycerin [Nitrostat] 0.4 mg Tablet, Sublingual 0.4 mg SUBLINGUAL Q5M PRN (Reason: Chest Pain) Rx Instructions: do not exceed 3 doses per episode sertraline 100 mg Tablet 150 mg PO DAILY 30 Days Qty: 45 1RF Discharge Orders: Discharge ED (Routine); Ordered 09/07/23 Ordered By: Quinton Santizo Referrals: Jorge Lamas DO [Physician] - 7-10 days (right 5th metacarpal fracture) Tam Del Valle MD [Primary Care Provider] - Discharge Diet: Usual diet Discharge Activity: Increase activity as tolerated Patient Instructions: Opioid Safety, Pain Management Activity Restrictions/Additional Instructions: Please return to the emergency department with any new or worsening symptoms. Follow-up with orthopedic surgery in 1 to 2 weeks. Roxicodone sparingly for pain. Please ice the fracture for 15 minutes every hour. Leave splint on at all times. Coding Level of Care Code ED Laborer [employer] for Rober Arellano
--- NOTE | 2023-09-07 15:38 | XRR_ITS ---
PROCEDURE INFORMATION: Exam: XR Right Wrist Exam date and time: 09/07/2023 3:50 PM Age: 58 years old Clinical indication: Injury or trauma; Fall; Blunt trauma (contusions or hematomas); Wrist; Right; Additional info: Fall, bruising over the third fourth and fifth metacarpals TECHNIQUE: Imaging protocol: Radiologic exam of the right wrist. Views: 3 or more views. COMPARISON: CR XR wrist RT min 3V* [id number] 10/26/2021 11:27 AM FINDINGS: Bones/joints: There is a comminuted minimally displaced fracture of the distal 5th metacarpal which involves the radial margin of the articular surface where there is less than 1 mm step-off. The bulk of the articular surface is intact. Joint alignment is normal. No fracture is seen elsewhere. There is mild osteoarthritis at the 1st MCP and CMC joints. Soft tissues: There is dorsal soft tissue swelling in the hand. XR/XR wrist RT min 3V* [id number] IMPRESSION: Acute comminuted minimally displaced fracture of the distal 5th metacarpal head with involvement of the articular surface. No dislocation.
--- NOTE | 2023-09-07 15:38 | XRR_ITS ---
PROCEDURE INFORMATION: Exam: XR Right Hand Exam date and time: 09/07/2023 3:48 PM Age: 58 years old Clinical indication: Injury or trauma; Fall; Blunt trauma (contusions or hematomas); Hand; Right; Additional info: Fall, bruising over the third fourth and fifth metacarpals TECHNIQUE: Imaging protocol: Radiologic exam of the right hand. Views: 3 or more views. COMPARISON: CR XR forearm RT 2V [id number] 10/26/2021 11:33 AM FINDINGS: Bones/joints: There is a comminuted minimally displaced fracture of the distal 5th metacarpal which involves the radial margin of the articular surface where there is less than 1 mm step-off. The bulk of the articular surface is intact. Joint alignment is normal. No fracture is seen elsewhere. There is mild osteoarthritis at the 1st MCP and CMC joints. There is mild diffuse distal interphalangeal osteoarthritis. Soft tissues: There is dorsal soft tissue swelling in the hand. XR/XR hand RT min 3V* [id number] IMPRESSION: Acute comminuted minimally displaced fracture of the distal 5th metacarpal head with involvement of the articular surface. No dislocation.
[2023-09-07 16:04] VITALS: RESP 16
[2023-09-07] MEDS: morphine 4 mg/mL SDV 1 mL IM ×2 (16:04→16:42)
[2023-09-07 16:42] VITALS: RESP 16
[2023-09-07 17:08] VITALS: BP 131/69; PULSE 65; RESP 16; O2SAT 98
== END 2023-09-07 17:10 | disposition home or self-care (01) ==
PROVIDERS: Emergency Provider General Practice; PCP Family Medicine
DX: S62.396A Other fracture of fifth metacarpal bone, right hand, initial encounter for closed fracture (principal); F17.210 Nicotine dependence, cigarettes, uncomplicated; F17.290 Nicotine dependence, other tobacco product, uncomplicated; E11.40 Type 2 diabetes mellitus with diabetic neuropathy, unspecified; I50.9 Heart failure, unspecified; W19.XXXA Unspecified fall, initial encounter
CPT/HCPCS: 29125; 73110; 73130; 96372; 99284; J2270

== ENCOUNTER → 2023-09-13 08:30 | Outpatient (BNVA) | payer MEDICARE, MEDICAID, SELFPAY ==
[2023-06-26 14:03] VITALS: BP 147/78; BMI 37.0
== END ==
PROVIDERS: PCP Family Medicine; Visit Provider Physician Assistant
DX: S62.396A Other fracture of fifth metacarpal bone, right hand, initial encounter for closed fracture (principal); W01.0XXA Fall on same level from slipping, tripping and stumbling without subsequent striking against object, initial encounter; Z46.89 Encounter for fitting and adjustment of other specified devices; S62.396D Other fracture of fifth metacarpal bone, right hand, subsequent encounter for fracture with routine healing; X58.XXXD Exposure to other specified factors, subsequent encounter; L97.521 Non-pressure chronic ulcer of other part of left foot limited to breakdown of skin
CPT/HCPCS: 73130

== ENCOUNTER 2023-09-13 09:56 | Outpatient (CLI) | payer MEDICARE, MEDICAID, SELFPAY ==
[2023-06-26 14:03] VITALS: BP 147/78; BMI 37.0
== END 2023-09-13 09:57 | disposition home or self-care (01) ==
LOC: SPT 09:57
PROVIDERS: PCP Family Medicine; Visit Provider Physician Assistant
DX: Z46.89 Encounter for fitting and adjustment of other specified devices (principal); S62.396D Other fracture of fifth metacarpal bone, right hand, subsequent encounter for fracture with routine healing; X58.XXXD Exposure to other specified factors, subsequent encounter
CPT/HCPCS: L3984

== ENCOUNTER → 2023-09-20 15:34 | Outpatient (BNVA) | payer MEDICARE, MEDICAID, SELFPAY ==
[2023-06-26 14:03] VITALS: BP 147/78; BMI 37.0
== END ==
PROVIDERS: PCP Family Medicine; Visit Provider Physician Assistant
DX: S62.396A Other fracture of fifth metacarpal bone, right hand, initial encounter for closed fracture; X58.XXXA Exposure to other specified factors, initial encounter
CPT/HCPCS: 73130; 99213

== ENCOUNTER → 2023-09-28 14:28 | Outpatient (BNVA) | payer SELFPAY ==
[2023-06-26 14:03] VITALS: BP 147/78; BMI 37.0
== END ==
PROVIDERS: PCP Family Medicine; Visit Provider Student in an Organized Health Care Education/Training Program
DX: S62.396A Other fracture of fifth metacarpal bone, right hand, initial encounter for closed fracture; X58.XXXA Exposure to other specified factors, initial encounter
CPT/HCPCS: 73130

== ENCOUNTER 2023-10-05 17:40 | Inpatient (IN) | payer MEDICARE, MEDICAID, SELFPAY ==
[2023-06-26 14:03] VITALS: BP 147/78; BMI 37.0
[2023-10-05 17:48] VITALS: BP 127/81; PULSE 68; RESP 18; TEMP 36.8; O2SAT 96; BMI 31.7
--- NOTE | 2023-10-05 17:50 | ED.C_ITS ---
HPI - Psych 2 General: Chief Complaint: Psychiatric Symptoms Stated Complaint: SI Time Seen by Provider: 10/05/23 17:43 Source: EMS Mode of arrival: EMS Limitations: no limitations History of Present Illness: 58-year-old female who is brought here b y EMS for suicidality. Patient has been drinking today and stated she want to kill herself she had plans of cutting her wrists. Patient denies any worsening or improving factors. Associated symptoms: Reports depression and suicidal ideation Review of Systems 2 Const: Denies: fever(s), chills, body aches or change in appetite ENMT: Denies: throat pain or dental pain Card: Denies: chest pain Resp: Denies: dyspnea GI: Denies: abdominal pain, nausea, vomiting or diarrhea Musc: Denies: neck pain or back pain Skin/Breast: Denies: rash Neuro: Denies: headache(s) Psych: Reports: depression and suicidal ideation PFS ED 2 PFSH: Medical History Suicidal ideation Cannabis dependence, episodic use last use 03/26/23 Major depressive disorder, recurrent, severe with psychotic symptoms Nicotine dependence due to vaping tobacco product Vaping nicotine Chronic post-traumatic stress disorder Alcohol use disorder, severe, dependence last use 03/26/23 Psychiatric care Uncontrolled type 2 diabetes with neuropathy Sacroiliitis H/O Belkys-Valenzuela syndrome (~07/2019) EGD at [facility]. EGD 10/26 negative. Chronic back pain Congestive heart failure Diabetes mellitus MONTANO (nonalcoholic steatohepatitis) Borderline personality disorder Bilateral primary osteoarthritis of hip Surgical History History of hysterectomy History of esophagogastroduodenoscopy H/O colonoscopy H/O cervical spine surgery Family History Son Suicide September 2019 Other Cancer Hypertension Psychiatric illness Social History Smoking and tobacco/nicotine status: current every day tobacco/nicotine user cigarettes [ Other cigarette details: When vape breaks she returns to cigarettes] and e-cigarettes E-Cigarette Details: vaporizer device and with nicotine E-cig/vape details: 6000 puffs in each device, uses 3 per month Quit status (tobacco/nicotine): not considering quitting Second hand smoke exposure: Yes Alcohol intake: current Alcohol intake frequency: few times a month Alcohol type: hard liquor Substance/Drug Use: current Substance/Drug use frequency: daily Other substance/drug use details: medical card Adopted: No Caregiver/support person: Yes (cleans and runs errands) Lives independently: Yes Household members: none Housing: Apartment Marital status: Single Number of children: 2 Number of grandchildren: 0 Highest education level completed: Associate Degree: Occupational, Technical, Vocational Program 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 service: No Current occupational status: disabled Current occupational exposures/hazards: No Pets and animals: Yes Pets & animals: cat(s) Leisure activites: music, games and other Leisure activities details: watch a lot of movies Sexually active: No Do you think of yourself as: Straight/Heterosexual Current gender identity: Female Aparna/Oriental Orthodox: Yarsani Special aparna needs: No Agree to transfusion: Yes Female Reproductive History: Para: 2 Spontaneous abortions: Yes (10) Physical Exam 2 Const: COMMON NORMALS: no acute distress, patient oriented x3 and healthy appearing HENMT: COMMON NORMALS: normocephalic and atraumatic HEAD & SCALP: n ormocephalic and atraumatic Neck/C-Spine: COMMON NORMALS: full ROM and supple Chest: COMMONS NORMALS: normal inspection of the chest and normal palpation of entire chest wall Resp: COMMON NORMALS: normal respiratory effort, No retractions, No use of accessory muscles and clear to auscultation bilaterally AUSCULTATION: clear to auscultation bilaterally Cardio: COMMON NORMALS: regular rate, regular rhythm and No murmurs present (Cardio) RATE: regular rate RHYTHM: regular rhythm Extremity: COMMON NORMALS: normal to inspection and full ROM Neuro: COMMON NORMALS: patient oriented x3, moves all extremities and no focal motor deficits Psych: COMMON NORMALS: mental status grossly normal, Normal thought process present and cooperative THOUGHT PROCESS: Normal thought process present T HOUGHT CONTENT: Yes Suicidality present Skin: COMMON NORMALS: no rashes or lesions noted and no wounds GENERAL SKIN EXAM: no rashes or lesions noted Course 2 Vital Signs: Vital signs: Vital Signs Temperature 98.2 F 10/05/23 17:48 Pulse Rate 68 10/05/23 17:48 Respiratory Rate 18 10/05/23 17:48 Blood Pressure 127/81 10/05/23 17:48 Pulse Oximetry 98 10/05/23 18:05 Oxygen Delivery Me thod Room Air 10/05/23 18:05 [facility] - Psych Medical Decision Making Patient presents here with suicidal ideation she has a plan of slitting her wrist patient has a history of alcoholism had been drinking today she is medically cleared I spoke to psychiatrist will admit to the psych su. Medical Records I reviewed the patient's medical records. Lab Data I reviewed the patient's lab results. 10/05/23 18:21 10/05/23 18:21 Laboratory Results WBC 6.48 10^3/uL (3.29-11.43) 10/05/23 18:21 RBC 3.79 10^6/uL (3.85-5.65) L 10/05/23 18:21 Hgb 12.40 g/dL (11.27-16.99) 10/05/23 18:21 Hct 37.2 % (36-47) 10/05/23 18:21 MCV 98.2 fl (85-98) H 10/05/23 18:21 MCH 32.7 pg (27-33) 10/05/23 18:21 MCHC 33.3 g/dL (30-55) 10/05/23 18:21 RDW 14.9 % (12.1-15.1) 10/05/23 18:21 Plt Count 89 10^3/cmm (157-399) L 10/05/23 18:21 MPV 9.5 fL (7.4-10.4) 10/05/23 18:21 Neut % (Auto) 63.0 % 10/05/23 18:21 Lymph % (Auto) 24.8 % 10/05/23 18:21 [place] % (Auto) 6.6 % 10/05/23 18:21 Eos % (Auto) 4.5 % 10/05/23 18:21 Baso % (Auto) 0.9 % 10/05/23 18:21 Neut # (Auto) 4.08 10^3/uL (1.8-7.7) 10/05/23 18:21 Lymph # (Auto) 1.6 10^3/uL (0.8-4.8) 10/05/23 18:21 [place] # (Auto) 0.4 10^3/uL (0.2-0.9) 10/05/23 18:21 Eos # (Auto) 0.3 10^3/uL (0.0-0.8) 10/05/23 18:21 Baso # (Auto) 0.1 10^3/uL (0.0-0.1) 10/05/23 18:21 Nucleated RBC % (auto) 0 % 10/05/23 18:21 Nucleated RBCs # 0.0 /100WBC 10/05/23 18:21 Sodium 143 mmol/L (136-145) 10/05/23 18:21 Potassium 3.2 mmol/L (3.5-5.1) L 10/05/23 18:21 Chloride 108 mmol/L (98-107) H 10/05/23 18:21 Carbon Dioxide 25 mmol/L (22-29) 10/05/23 18:21 Anion Gap 13.2 (5-19) 10/05/23 18:21 BUN 6 mg/dL (6-20) 10/05/23 18:21 Creatinine 0.4 mg/dL (0.5-0.9) L 10/05/23 18:21 GFR Calculation 165.1 mL/min (90-130) H 10/05/23 18:21 Glucose 100 mg/dL (65-115) 10/05/23 18:21 Calculated Osmolality 294 mOsm/kg (285-295) 10/05/23 18:21 Calcium 8.4 mg/dL (8.5-10.5) L 10/05/23 18:21 Total Bilirubin 2.5 mg/dL (0.15-1.2) H 10/05/23 18:21 AST 77 U/L (0-32) H 10/05/23 18:21 ALT 39 U/L (0-33) H 10/05/23 18:21 Alkaline Phosphatase 148 U/L (35-105) H 10/05/23 18:21 Total Protein 6.2 g/dL (6.6-8.7) L 10/05/23 18:21 Albumin 3.4 g/dL (3.5-5.2) L 10/05/23 18:21 Globulin 2.8 g/dL (1.3-4.6) 10/05/23 18:21 HCG, Qual Negative (Negative) 10/05/23 18:21 Salicylates < 0.3 mg/dL (3-10) L 10/05/23 18:21 Urine Opiates Screen Positive ng/mL (Negative) H 10/05/23 18:07 Acetaminophen < 5.0 ug/mL (10-30) L 10/05/23 18:21 Ur Barbiturates Screen Negative ng/mL (Negative) 10/05/23 18:07 Ur Phencyclidine Scrn Negative ng/mL (Negative) 10/05/23 18:07 Ur Amphetamines Screen Negative ng/mL (Negative) 10/05/23 18:07 U Benzodiazepines Scrn Negative ng/mL (Negative) 10/05/23 18:07 Urine Cocaine Screen Negative ng/mL (Negative) 10/05/23 18:07 U Marijuana (THC) Screen Positive ng/mL (Negative) H 10/05/23 18:07 Ethyl Alcohol 192 mg/dL (0-10) H 10/05/23 18:21 No radiology studies performed this visit Discharge Plan Discharge Patient Disposition: Admitted As Inpatient Clinical Impression: Suicidal ideation, Alcohol use disorder, severe, dependence Condition: Stable Prescriptions: No Action (DME) [place] AFO to the left See Rx Instructions .Route .MEDSUPPLY Qty: 1 0RF Rx Instructions: As directed epinephrine 0.3 mg/0.3 mL auto-injector 0.3 mg IM Q10M PRN (Reason: Anaphylaxis) Rx Instructions: for 2 doses hydrocodone-acetaminophen 10-325 mg tablet 1 tab PO Q6H PRN (Reason: pain) 5 Days Qty: 20 0RF (DME) Fast Form Kenton Joseter See Rx Instructions .Route .MEDSUPPLY Qty: 1 0RF Rx Instructions: As directed hydrocodone-acetaminophen 10-325 mg tablet 1 tab PO Q6H PRN (Reason: pain) 5 Days Qty: 20 0RF albuterol sulfate 90 mcg/actuation HFA aerosol inhaler 1 inh inhalation QID PRN (Reason: shortness of breath or wheezing) Qty: 8.5 0RF budesonide-formoterol [Symbicort] 160-4.5 mcg/actuation HFA aerosol inhaler 1 puff inhalation BID Qty: 10.2 1RF mupirocin 2 % ointment 1 applic topical TID Qty: 15 1RF Rx Instructions: apply to wound TID and as needed with dressing changes, cover with band-aid clonazepam 1 mg tablet 1 mg PO BID PRN (Reason: anxiety) Qty: 14 0RF ondansetron 8 mg tablet,disintegrating 8 mg PO Q8H PRN (Reason: nausea and vomiting) 5 Days Qty: 15 0RF hydrocodone-acetaminophen 10-325 mg tablet 1 tab PO Q6H PRN (Reason: pain) 5 Days Qty: 20 0RF hydrocodone-acetaminophen 10-325 mg tablet 1 tab PO Q6H PRN (Reason: pain) 5 Days Qty: 20 0RF isosorbide mononitrate 30 mg tablet extended release 24 hr 30 mg PO DAILY hydroxyzine pamoate 50 mg capsule 50 mg PO BID trazodone 100 mg tablet 100 mg PO BEDTIME Rx Instructions: Take one tablet with 300 mg tablet 30 min prior to bedtime, total dose 400 mg trazodone 300 mg tablet 300 mg PO BEDTIME Rx Instructions: Take one tablet with 100 mg tablet 30 min prior to bedtime Roxicodone 15 mg tablet 7.5 mg PO Q8H PRN (Reason: pain) Qty: 7 0RF nitroglycerin [Nitrostat] 0.4 mg Tablet, Sublingual 0.4 mg SUBLINGUAL Q5M PRN (Reason: Chest Pain) Rx Instructions: do not exceed 3 doses per episode sertraline 100 mg Tablet 150 mg PO DAILY 30 Days Qty: 45 1RF Referrals: Tam Del Valle MD [Primary Care Provider] - Coding Level of Care Code ED Knitter Hand for Rober Arellano
[2023-10-05 18:05] VITALS: O2SAT 98
--- NOTE | 2023-10-05 18:13 | PC.NURSE ---
96 hour hold rights read and reviewed with patient. Patient verbalized understandings. Copy of rights given to patient.
[2023-10-05 18:28] LABS: Basophils # 0.1 10^3/uL (0.0-0.1); Basophils % 0.9 %; Eosinophils # 0.3 10^3/uL (0.0-0.8); Eosinophils % 4.5 %; Hematocrit 37.2 % (36-47); Lymphocytes # 1.6 10^3/uL (0.8-4.8); Lymphocytes % 24.8 %; Mean Corpuscular HGB Conc 33.3 g/dL (30-55); Mean Corpuscular Hemoglobin 32.7 pg (27-33); Mean Corpuscular Volume 98.2 fl (85-98); Mean Platelet Volume 9.5 fL (7.4-10.4); Monocytes # 0.4 10^3/uL (0.2-0.9); Monocytes % 6.6 %; Neutrophils # 4.08 10^3/uL (1.8-7.7); Nucleated Red Blood Cells % 0 %; Platelet Count 89 10^3/cmm (157-399); Red Blood Count 3.79 10^6/uL (3.85-5.65); Red Cell Distribution Width 14.9 % (12.1-15.1); White Blood Count 6.48 10^3/uL (3.29-11.43)
[2023-10-05 18:35] LABS: HCG Qualitative Urine. Negative (Negative)
[2023-10-05 18:38] LABS: Amphetamines Screen Urine Negative (Negative); Barbiturates Screen Urine Negative (Negative); Benzodiazepines Screen Urine Negative (Negative); Cocaine Screen Urine Negative (Negative); Opiate Screen Urine Positive (Negative); PCP Screen Urine Negative (Negative); THC Screen Urine Positive (Negative)
[2023-10-05 18:51] LABS: Alanine Aminotransferase 39 U/L (0-33); Albumin Level 3.4 g/dL (3.5-5.2); Alcohol Level 192 mg/dL (0-10); Alkaline Phosphatase 148 U/L (35-105); Anion Gap 13.2 (5-19); Aspartate Amino Transferase 77 U/L (0-32); Blood Urea Nitrogen 6 mg/dL (6-20); Calcium 8.4 mg/dL (8.5-10.5); Carbon Dioxide 25 mmol/L (22-29); Chloride 108 mmol/L (98-107); Creatinine Clr Calc Pharmacy 176.5514; Globulin 2.8 g/dL (1.3-4.6); Glomerular Filtration Rate 165.1 mL/min (90-130); Glucose 100 mg/dL (65-115); Osmolality Calculated 294 mOsm/kg (285-295); Potassium 3.2 mmol/L (3.5-5.1); Sodium 143 mmol/L (136-145); Total Bilirubin 2.5 mg/dL (0.15-1.2); Total Protein 6.2 g/dL (6.6-8.7)
[2023-10-05 18:59] LABS: Acetaminophen < 5.0 ug/mL (10-30); Salicylate < 0.3 mg/dL (3-10)
[2023-10-05] MEDS: multivitamin therapeutic Tablet 1 TAB PO (19:32)
[2023-10-05 20:34] VITALS: BP 137/90; PULSE 65; RESP 18; TEMP 36.6; O2SAT 97
[2023-10-05 20:49] VITALS: BP 127/81; PULSE 68; RESP 18; TEMP 36.8; O2SAT 98
--- NOTE | 2023-10-05 22:45 | PC.NURSE ---
Pt does state that she has a history of aggressive behaviors as well as violent behaviors especially if she is provoked or made to be jealous when someone looks at her significant other in any way. Pt also states that it is not something that she thinks that we will have to worry about here at this facility
--- NOTE | 2023-10-05 23:26 | PC.NURSE ---
When Pt first arrived to unit she had velcro brace to right hand/wrist applied. She stated that she had a previous fracture/injury that sounded chronic in nature. Pt reports pain when moving moving of right hand and pain when moving right wrist. Pt's brace has metal and is removed and placed with her belongings per unit protocols and policy
[2023-10-06] VITALS: BP 114/73; PULSE 63; RESP 16; TEMP 36.4; O2SAT 99
[2023-10-06 03:36] VITALS: BP 108/60; PULSE 65; RESP 16; TEMP 36.8; O2SAT 98
[2023-10-06 07:52] VITALS: BP 106/67; PULSE 69; RESP 16; TEMP 36.6; O2SAT 98
[2023-10-06] MEDS: thiamine 100 mg Tablet PO (08:41)
[2023-10-06] MEDS: folic acid 1 mg Tablet PO (08:41)
[2023-10-06] MEDS: multivitamin therapeutic Tablet 1 TAB PO (08:41)
[2023-10-06] MEDS: hyDROXYzine 25 mg Capsule 50 MG PO (08:41)
[2023-10-06] MEDS: nicotine 21 mg Patch 1 PATCH TRANSDERMA (09:02)
--- NOTE | 2023-10-06 09:31 | PC.NURSE ---
During assessment, patient endorses feelings of anxiety. Patient denies depression, Si, HI, AVH. Patient reports right hand/wrist pain caused by breaking it 2 weeks ago after over consumption of alcohol and sustaining a fall. Right hand appears swollen, patient has limited ROM in right hand. Supplied patient with warm compress.
[2023-10-06 11:34] VITALS: BP 95/61; PULSE 52; RESP 16; TEMP 36.6; O2SAT 98
[2023-10-06] MEDS: HYDROcodone-acetaminophen 10-325 mg Tablet 1 TAB PO ×2 (12:10→18:11)
[2023-10-06 14:06] VITALS: BP 132/69; PULSE 83; RESP 16; TEMP 36.8; O2SAT 100
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
[2023-10-06] MEDS: OLANZapine 5 mg ODT PO (18:45)
[2023-10-06 20:00] VITALS: BP 116/82; PULSE 63; RESP 18; O2SAT 100
[2023-10-06] MEDS: trazodone 150 mg Tablet 300 MG PO (21:01)
[2023-10-06] MEDS: trazodone 100 mg Tablet PO (21:01)
[2023-10-07] VITALS: BP 103/66; PULSE 65; RESP 16; TEMP 36.3; O2SAT 99
[2023-10-07] MEDS: HYDROcodone-acetaminophen 10-325 mg Tablet 1 TAB PO ×4 (00:05→18:22)
[2023-10-07 04:00] VITALS: BP 136/64; PULSE 66; RESP 18; TEMP 36.7; O2SAT 98
[2023-10-07] MEDS: ondansetron 4 MG Tablet PO (07:15)
[2023-10-07 07:34] LABS: Glucose Point of Care 198 mg/dL (70-110)
[2023-10-07 07:37] VITALS: BP 80/52; PULSE 50; RESP 17; TEMP 36.8; O2SAT 100
[2023-10-07] MEDS: folic acid 1 mg Tablet PO (07:56)
[2023-10-07] MEDS: nicotine 21 mg Patch 1 PATCH TRANSDERMA (07:56)
[2023-10-07] MEDS: multivitamin therapeutic Tablet 1 TAB PO (07:56)
[2023-10-07] MEDS: thiamine 100 mg Tablet PO (07:56)
[2023-10-07] MEDS: ibuprofen 600 mg Tablet PO (08:48)
--- NOTE | 2023-10-07 10:14 | PC.NURSE ---
Patient stated to this nurse that she does not have a true allergy to ibuprofen, that she was told to not take it on a regular basis. Restarted Ibuprofen 600mg. Administered 600mg PO to patient. No distress visualized or verbalized.
[2023-10-07 12:00] VITALS: BP 90/59; PULSE 78; RESP 16; TEMP 37.1; O2SAT 100
--- NOTE | 2023-10-07 12:34 | W.PM.NPUPNS ---
Subjective NPU Subjective: Patient is a 58-year-old female with alcohol dependence admitted with depression with suicidal ideation. Patient had requested inpatient substance abuse treatment as she had reported last having been in rehabilitation 4 years ago. She had reported that she was not feeling suicidal. She had continued report having problems with chronic pain. Patient had reported continued PTSD symptoms including nightmares 3 times a week. She had reported increased depression. 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 The patient reported low energy. She had remained isolative on the milieu. She had expressed concerns about Vivitrol as she was informed that naltrexone was not recommended while the patient was on an opiate. She endorsed no thoughts of cutting herself today. Mental Status Exam MSE Comments: Patient is a casually dressed white female who was alert and oriented to person place and time. There was no evidence of any abnormal involuntary motor movements tics or tremors appreciated. She was alert and oriented x3. She appeared in minimal distress although she had complained of a variety of physical ailments again today. Her gait was antalgic but otherwise normal. Her hygiene was adequate. Her speech was normal in regards to rate, rhythm and prosody. Her mood was described as down. Her affect appeared mood congruent and restricted. She endorsed no homicidal ideation and endorsed no suicidal ideation. She did not appear to be responding to internal stimuli. There was no evidence of delusional thinking. Her recent and remote memory appeared grossly intact. Her insight and judgment were limited. Her impulse control appeared poor. Vitals/I&O/Wt Last Vital Signs Temp 98.3 F 10/07/23 07:37 Pulse 50 L 10/07/23 07:37 Resp 17 10/07/23 07:37 BP 80/52 10/07/23 07:37 Pulse Ox 100 10/07/23 07:37 O2 Del Method Room Air 10/07/23 07:37 Weight last 48 hrs Weight 73.936 kg Weight 71.214 kg Data NPU 10/05/23 18:21 10/05/23 18:21 A&P Assessment and plan (1) Depression: (2) Suicidal ideation: (3) Alcohol use disorder, severe, dependence: (4) Borderline personality disorder: (5) PTSD (post-traumatic stress disorder): (6) MDD (major depressive disorder), recurrent episode, severe: Plan This is a 58-year-old white female with multiple inpatient hospitalizations with a history of PTSD , major depression and borderline personality disorder admitted with complaints of suicidal ideation with plan to cut her wrists now requesting inpatient substance abuse treatment. 1.? ? Engage? patient in individual ,milieu, and group therapy ?2. ? Reconciliation of medications is necessary with patient to be restarted on zoloft and trazodone as prescribed. ?3. ? TO-15 minute checks on the unit. ?4.? Recommend sober living treatment at the highest level of care to which the patient is willing to commit. 5. ? continue CIWA protocol, unable to start vivitrol due to pain issues reportedly requiring short term use of opiates. Will clarify plan with outpatient medicine team. Restart Zoloft to target anxiety and depression. Involuntary Hold Information 96 Hour Hold: 96 Hour Involuntary Admission: Yes Attestations NPU Medical Necessity Statement*: Inpatient hospitalization is medically necessary and deemed to be the clinically appropriate intervention at this time. We will monitor and initiate medications while making changes as indicated. Her likely length of stay is 3-4 days. Coding Level of Care Code Acute Code for [facility] Fwd Diagnoses Depression F32.A Suicidal ideation R45.851 Alcohol use disorder, severe, dependence F10.20 Borderline personality disorder F60.3 PTSD (post-traumatic stress disorder) F43.10 MDD (major depressive disorder), recurrent episode, severe F33.2
[2023-10-07] MEDS: sertraline 50 mg Tablet PO (13:23)
[2023-10-07 14:54] VITALS: BP 123/83; PULSE 67; RESP 16; TEMP 36.6; O2SAT 100
[2023-10-07] MEDS: OLANZapine 5 mg ODT PO (15:05)
[2023-10-07] MEDS: haloperidol 5 mg Tablet PO (15:46)
--- NOTE | 2023-10-07 15:47 | PC.NURSE ---
Patient at window, tearful. Patient states that she is upset from a phone call she recently received. Patient did not elaborate. Patient states that the zyprexa 5mg ODT this nurse recently gave to her were not successful in alleviating any anxious feelings. Administered haldol 5mg PO to patient. Will continue to monitor.
--- NOTE | 2023-10-07 18:25 | PC.NURSE ---
This nurse put a stop date of 10/09/23 for patient's Erick medication. The Rx was written by Dr. Lamas on 10/03 for a 5 day supply of medication.
[2023-10-07 19:44] VITALS: BP 134/69; PULSE 62; RESP 16; TEMP 36.4; O2SAT 99
[2023-10-07] MEDS: trazodone 150 mg Tablet 300 MG PO (21:29)
[2023-10-07] MEDS: trazodone 100 mg Tablet PO (21:29)
[2023-10-08 06:00] VITALS: BP 100/66; PULSE 67; RESP 16; TEMP 37; O2SAT 95
[2023-10-08] MEDS: HYDROcodone-acetaminophen 10-325 mg Tablet 1 TAB PO ×3 (06:24→18:49)
[2023-10-08] MEDS: nicotine 21 mg Patch 1 PATCH TRANSDERMA (08:38)
[2023-10-08] MEDS: folic acid 1 mg Tablet PO (08:39)
[2023-10-08] MEDS: sertraline 50 mg Tablet PO (08:39)
[2023-10-08] MEDS: thiamine 100 mg Tablet PO (08:39)
[2023-10-08] MEDS: isosorbide mononitrate ER 30 mg Tablet PO (08:39)
[2023-10-08] MEDS: multivitamin therapeutic Tablet 1 TAB PO (08:39)
[2023-10-08] MEDS: OLANZapine 5 mg ODT PO ×3 (08:45→19:40)
--- NOTE | 2023-10-08 09:57 | PC.NURSE ---
PT CURRENTLY DENIES SI/HI/AH/VH. PT CURRENTLY ENDORSES ANXIETY RATING IT A 6/10 ON A 0-10 SCALE WHERE 0 IS NONE AND 10 IS THE WORST POSSIBLE. PT WAS COOPERATIVE WITH ASSESSMENT AND MEDICATIONS. PT R HAND AND WRIST ARE SWOLLEN AND SLIGHTLY BRUISED FROM PREVIOUS INJURY. PT IS COMPLAINING OF PAIN RATING IT A 8/10 ON THE SAME SCALE PREVIOUS. PT CURRENT NEEDS ARE MET AT THIS TIME.
[2023-10-08 14:00] VITALS: BP 110/73; PULSE 71; RESP 16; O2SAT 98
--- NOTE | 2023-10-08 17:06 | P.NPUPN_ITS ---
Subjective NPU 2 Subjective: Patient is a 58-year-old female with alcohol dependence admitted with depression with suicidal ideation. She had reported no suicidal ideation at this time. She had requested inpatient substance abuse treatment. She had continued be hesitant about starting Vivitrol as she had remained on oral opiates for her lingering pain issues. She reported side effects from previous antidepressants including rashes but reported no side effects from the Zoloft currently. She had reported that she was anemic and requested having her right wrist examined due to concerns that had been swollen after she had fallen when she was drinking. She had reported having occasional episodes of bleeding with a reported history of Belkys-Valenzuela tears. Patient was able to attend groups. She had not endorsed any new changes regarding her PTSD symptoms. Mental Status Exam 2 MSE Comments: Patient is a casually dressed white female who was alert and oriented to person place and time. There was no evidence of any abnormal involuntary motor movements tics or tremors appreciated. She was alert and oriented x3. She appeared in minimal distress although she had complained of a variety of physical ailments again today. Her gait was antalgic but otherwise normal. Her hygiene was adequate. Her speech was normal in regards to rate, rhythm and prosody. Her mood was described as a little better. Her affect appeared mood incongruent and restricted. She endorsed no homicidal ideation and endorsed no suicidal ideation. She did not appear to be responding to internal stimuli. There was no evidence of delusional thinking. Her recent and remote memory appeared grossly intact. Her insight and judgment were limited. Her impulse control appeared poor. Vitals/I&O/Wt Last Vital Signs Temp 98.6 F 10/08/23 06:00 Pulse 71 10/08/23 14:00 Resp 16 10/08/23 14:00 BP 110/73 10/08/23 14:00 Pulse Ox 98 10/08/23 14:00 O2 Del Method Room Air 10/08/23 06:00 Weight last 48 hrs Weight 73.936 kg Data NPU 10/05/23 18:21 10/05/23 18:21 A&P Assessment and plan (1) Depression: (2) Suicidal ideation: (3) Alcohol use disorder, severe, dependence: (4) Borderline personality disorder: (5) PTSD (post-traumatic stress disorder): (6) MDD (major depressive disorder), recurrent episode, severe: Plan This is a 58-year-old white female with multiple inpatient hospitalizations with a history of PTSD , major depression and borderline personality disorder admitted with complaints of suicidal ideation with plan to cut her wrists now requesting inpatient substance abuse treatment. 1.? ? Engage? patient in individual ,milieu, and group therapy ?2. ? Reconciliation of medications is necessary with patient to be restarted on zoloft and trazodone as prescribed. ?3. ? TO-15 minute checks on the unit. ?4.? Recommend sober living treatment at the highest level of care to which the patient is willing to commit. 5. ? continue CIWY protocol. Referrals for inpatient substance abuse treatment. Will clarify plan with outpatient medicine team. Increase Zoloft to 75mg to target anxiety and depression. Involuntary Hold Information 2 96 Hour Hold: 96 Hour Involuntary Admission: Yes Attestations NPU 2 Medical Necessity Statement*: Inpatient hospitalization is medically necessary and deemed to be the clinically appropriate intervention at this time. We will monitor and initiate medications while making changes as indicated. Her likely length of stay is 1-2 days. Coding Level of Care Code Acute Code for [facility] Fwd Diagnoses Depression F32.A Suicidal ideation R45.851 Alcohol use disorder, severe, dependence F10.20 Borderline personality disorder F60.3 PTSD (post-traumatic stress disorder) F43.10 MDD (major depressive disorder), recurrent episode, severe F33.2
--- NOTE | 2023-10-08 17:10 | XRR_ITS ---
PROCEDURE INFORMATION: Exam: XR Left Hand Exam date and time: 10/08/2023 6:14 PM Age: 58 years old Clinical indication: Pain; Hand; Left; Additional info: Pain, swelling, bruising TECHNIQUE: Imaging protocol: Radiologic exam of the left hand. Views: 3 or more views. COMPARISON: No relevant prior studies available. FINDINGS: Bones/joints: Normal. Soft tissues: Normal. XR/XR hand LT min 3V* [id number] IMPRESSION: No acute findings.
--- NOTE | 2023-10-08 17:10 | XRR_ITS ---
PROCEDURE INFORMATION: Exam: XR Right Wrist Exam date and time: 10/08/2023 6:16 PM Age: 58 years old Clinical indication: Pain; Wrist; Right; Additional info: Pain, swelling, bruising TECHNIQUE: Imaging protocol: Radiologic exam of the right wrist. Views: 3 or more views. COMPARISON: CR XR wrist RT min 3V* [id number] 09/07/2023 3:50 PM FINDINGS: Bones/joints: There is a healing transverse fracture involving the distal end of the 5th metacarpal bone. No other bony abnormality is noted. Soft tissues: Normal. XR/XR wrist RT min 3V* [id number] IMPRESSION: Healing fracture of the 5th metacarpal
[2023-10-08 18:28] LABS: Basophils % 0.8 %; Eosinophils # 0.1 10^3/uL (0.0-0.8); Eosinophils % 1.8 %; Hematocrit 32.7 % (36-47); Lymphocytes # 0.9 10^3/uL (0.8-4.8); Mean Corpuscular HGB Conc 34.3 g/dL (30-55); Mean Corpuscular Hemoglobin 33.3 pg (27-33); Mean Corpuscular Volume 97.3 fl (85-98); Mean Platelet Volume 10.5 fL (7.4-10.4); Monocytes # 0.3 10^3/uL (0.2-0.9); Monocytes % 7.5 %; Neutrophils # 2.62 10^3/uL (1.8-7.7); Neutrophils % 67.6 %; Nucleated Red Blood Cells % 0 %; Platelet Count 78 10^3/cmm (157-399); Red Blood Count 3.36 10^6/uL (3.85-5.65); Red Cell Distribution Width 14.4 % (12.1-15.1); White Blood Count 3.87 10^3/uL (3.29-11.43)
[2023-10-08] MEDS: trazodone 100 mg Tablet PO (20:50)
[2023-10-08] MEDS: trazodone 150 mg Tablet 300 MG PO (20:50)
[2023-10-08 21:56] VITALS: BP 127/64; PULSE 80; RESP 15; TEMP 36.6; O2SAT 95
[2023-10-09] MEDS: HYDROcodone-acetaminophen 10-325 mg Tablet 1 TAB PO ×4 (00:42→20:54)
[2023-10-09 06:00] VITALS: BP 122/61; PULSE 64; RESP 13; O2SAT 96
[2023-10-09] MEDS: folic acid 1 mg Tablet PO (08:36)
[2023-10-09] MEDS: sertraline 50 mg Tablet 75 MG PO (08:36)
[2023-10-09] MEDS: multivitamin therapeutic Tablet 1 TAB PO (08:36)
[2023-10-09] MEDS: isosorbide mononitrate ER 30 mg Tablet PO (08:36)
[2023-10-09] MEDS: thiamine 100 mg Tablet PO (08:36)
[2023-10-09] MEDS: nicotine 21 mg Patch 1 PATCH TRANSDERMA (08:41)
[2023-10-09] MEDS: hyDROXYzine 25 mg Capsule 50 MG PO (08:41)
[2023-10-09] MEDS: OLANZapine 5 mg ODT PO (12:53)
[2023-10-09 14:00] VITALS: BP 143/80; PULSE 81; RESP 16; TEMP 36.8; O2SAT 98
--- NOTE | 2023-10-09 16:03 | P.NPUPN_ITS ---
Subjective NPU 2 Subjective: Patient is a 58-year-old female with alcohol dependence admitted with depression with suicidal ideation. Patient did not endorse any suicidal thoughts. She had continued to express desire to go inpatient for substance abuse treatment. She was redirectable on the milieu. She had reported continued depression and reported no side effects from her Zoloft. Patient had again refused naltrexone at this time out of concerns of her need to continue to require opiate medications for managing her pain. Mental Status Exam 2 MSE Comments: Patient is a casually dressed white female who was alert and oriented to person place and time. There was no evidence of any abnormal involuntary motor movements tics or tremors appreciated. She was alert and oriented x3. She appeared in minimal distress although she had complained of a variety of physical ailments including wrist pain. Her gait was antalgic but otherwise normal. Her hygiene was adequate. Her speech was normal in regards to rate, rhythm and prosody. Her mood was described as a little better. Her affect appeared mood incongruent and restricted. She endorsed no homicidal ideation and endorsed no suicidal ideation. She did not appear to be responding to internal stimuli. There was no evidence of delusional thinking. Her recent and remote memory appeared grossly intact. Her insight and judgment were limited. Her impulse control appeared poor. Vitals/I&O/Wt Last Vital Signs Temp 98.3 F 10/09/23 14:00 Pulse 81 10/09/23 14:00 Resp 16 10/09/23 14:00 BP 143/80 10/09/23 14:00 Pulse Ox 98 10/09/23 14:00 O2 Del Method Room Air 10/09/23 14:00 Data NPU 10/08/23 18:09 10/05/23 18:21 A&P Assessment and plan (1) Depression: (2) Suicidal ideation: (3) Alcohol use disorder, severe, dependence: (4) Borderline personality disorder: (5) PTSD (post-traumatic stress disorder): (6) MDD (major depressive disorder), recurrent episode, severe: Plan This is a 58-year-old white female with multiple inpatient hospitalizations with a history of PTSD , major depression and borderline personality disorder admitted with complaints of suicidal ideation with plan to cut her wrists now requesting inpatient substance abuse treatment. 1.? ?Engage? patient in individual ,milieu, and group therapy. Seeking placement options to inpatient substance abuse treatment. Consider digital therapeutic applications for treatment of alcohol dependence. ?2. ? Reconciliation of medications is necessary with patient to be restarted on zoloft and trazodone as prescribed. ?3. ? TO-15 minute checks on the unit. ?4.? Recommend sober living treatment at the highest level of care to which the patient is willing to commit. 5. ? continue CIMD protocol. Referrals for inpatient substance abuse treatment. Will clarify plan with outpatient medicine team. Continue Zoloft 75mg to target anxiety and depression. Involuntary Hold Information 2 96 Hour Hold: 96 Hour Involuntary Admission: Yes Attestations NPU 2 Medical Necessity Statement*: Inpatient hospitalization is medically necessary and deemed to be the clinically appropriate intervention at this time. We will monitor and initiate medications while making changes as indicated. Her likely length of stay is 1-2 days. Coding Level of Care Code Acute Code for [facility] Fwd Diagnoses Depression F32.A Suicidal ideation R45.851 Alcohol use disorder, severe, dependence F10.20 Borderline personality disorder F60.3 PTSD (post-traumatic stress disorder) F43.10 MDD (major depressive disorder), recurrent episode, severe F33.2
[2023-10-09] MEDS: trazodone 150 mg Tablet 300 MG PO (20:54)
[2023-10-09] MEDS: trazodone 100 mg Tablet PO (20:54)
[2023-10-09 21:30] VITALS: BP 156/78; PULSE 76; RESP 13; TEMP 36.9; O2SAT 98
[2023-10-10 06:00] VITALS: BP 117/67; PULSE 77; RESP 15; TEMP 37; O2SAT 93
[2023-10-10] MEDS: diphenhydrAMINE 50 mg/mL SDV 1mL IM (08:38)
--- NOTE | 2023-10-10 09:00 | PC.NURSE ---
pt came to nurses station, pt face swollen, eyes swollen, lips swollen, red rash on face, checked pt lower extremities which has +2pitting edema. pt denied itching, tongue swelling or dificulty breathing or swallowing. notified Dr. Looney of pt condition. benadryl 50mg im ordered.
--- NOTE | 2023-10-10 09:05 | PC.NURSE ---
Dr. Looney requested medical consult.
--- NOTE | 2023-10-10 09:07 | P.CONIM_ITS ---
Providers/Reason For Consult 2 Consulting Physician/Specialty*: Robby Rodríguez MD, hospitalist Reason for Consult*: Facial swelling Attending Physician: Manjit Looney MD Primary Care Provider: Tam Del Valle MD History of Present Illness History of Present Illness Kay Calles is a 58 year old female currently in the neuropsychiatric unit for severe depression and alcoholism. There was concern with facial swelling noted today. Patient also complains of some lower extremity swelling. She was admitted on October 05. She denies any itching, tongue swelling, difficulty breathing, wheezing. She has significant alcohol intake, and deranged liver function test secondary to alcoholic liver disease. Nursing reports no new medications. Patient reports no pain in her face, lower extremities, shortness of breath, chest discomfort. Review of Systems 2 General: Reports: 10 or more systems reviewed and unremarkable except in HPI and below Medications/Allergies Home Medications Medication Instructions Recorded Confirmed Last Taken Type Sintia AFO to the left #1 ea 05/23/22 10/06/23 Unknown Rx isosorbide mononitrate 30 mg 30 mg PO DAILY 06/01/23 10/06/23 Unknown History tablet,extended release 24 hr trazodone 100 mg tablet 100 mg PO BEDTIME 06/01/23 10/06/23 Unknown History trazodone 300 mg tablet 300 mg PO BEDTIME insomnia 06/01/23 10/06/23 Unknown History albuterol sulfate 90 mcg/actuation 1 inh inhalation QID PRN shortness 07/19/23 10/06/23 Unknown Rx aerosol inhaler of breath or wheezing #8.5 grams budesonide-formoterol HFA 160 1 puff inhalation BID #10.2 grams 07/26/23 10/06/23 Unknown Rx mcg-4.5 mcg/actuation aerosol inhaler (Symbicort) Fast Form Ulnar Gutter #1 ea 09/13/23 10/06/23 Unknown Rx hydrocodone 10 mg-acetaminophen 1 tab PO Q6H PRN pain 5 days #20 09/13/23 10/06/23 Unknown Rx 325 mg tablet tabs Allergies Allergy/AdvReac Type Severity Reaction Status Date / Time venom-wasp Allergy Severe ALGY-Anaphy Verified 09/29/23 15:32 laxis Sulfa (Sulfonamide Allergy Intermediate Hives Verified 09/29/23 15:32 Antibiotics) aspirin Allergy Unknown Unknown Verified 09/29/23 15:32 Cephalosporins Allergy Unknown Unknown Verified 09/29/23 15:32 NSAIDS (Non-Steroidal Allergy Unknown Unknown Verified 09/29/23 15:32 Anti-Inflamma sumatriptan [From Imitrex] Allergy Unknown Unknown Verified 09/29/23 15:32 acetaminophen [From Tylenol] Allergy Unknown Verified 09/29/23 15:32 ibuprofen Allergy UNKNOWN Verified 09/29/23 15:32 [From NeoProfen (ibuprofen lysn)(PF)] metoclopramide [From Reglan] Allergy ALGY-Joint Verified 09/29/23 15:32 Pain bupropion [From Wellbutrin] AdvReac Intermediate ALGY-Rash Verified 09/29/23 15:32 prednisone AdvReac Intermediate Heart rate Verified 09/29/23 15:32 was heavy. Norman sick. Current Medications Generic Name Dose Route Start Last Admin Trade Name Freq PRN Reason Stop Dose Admin Diphenhydramine HCl 50 mg 10/05/23 20:34 10/10/23 08:38 Diphenhydramine 50 Mg/Ml Sdv 1ml IM 50 mg ONCE PRN Administration Severe Extrapyramidal Symptoms Folic Acid 1 mg 10/06/23 09:00 10/09/23 08:36 Folic Acid 1 Mg Tablet PO 1 mg DAILY JENS Administration Haloperidol 5 mg 10/05/23 20:34 10/07/23 15:46 Haloperidol 5 Mg Tablet PO 5 mg Q4H PRN Administration AGITATION Hydroxyzine Pamoate 50 mg 10/05/23 20:34 10/09/23 08:41 Hydroxyzine 25 Mg Capsule PO 50 mg Q6H PRN Administration ANXIETY Isosorbide Mononitrate 30 mg 10/07/23 09:00 10/09/23 08:36 Isosorbide Mononitrate Er 30 Mg Tablet PO 30 mg DAILY EJNS Administration Multivitamins Therapeutic 1 tab 10/06/23 09:00 10/09/23 08:36 Multivitamin Therapeutic Tablet PO 1 tab DAILY JENS Administration Nicotine 1 patch 10/05/23 20:34 10/09/23 08:41 Nicotine 21 Mg Patch TRANSDERMA 1 patch DAILY PRN Administration NICOTINE WITHDRAWAL Olanzapine 5 mg 10/05/23 20:34 10/09/23 12:53 Olanzapine 5 Mg Odt PO 5 mg Q4H PRN Administration Agitation/Psychosis Ondansetron HCl 4 mg 10/05/23 20:34 10/07/23 07:15 Ondansetron 4 Mg Tablet PO 4 mg Q6H PRN Administration NAUSEA AND VOMITING Sertraline HCl 75 mg 10/09/23 09:00 10/09/23 08:36 Sertraline 50 Mg Tablet PO 75 mg DAILY JENS Administration Thiamine Mononitrate 100 mg 10/06/23 09:00 10/09/23 08:36 Thiamine 100 Mg Tablet PO 100 mg DAILY JENS Administration Trazodone HCl 100 mg 10/06/23 21:00 10/09/23 20:54 Trazodone 100 Mg Tablet PO 100 mg BEDTIME JENS Administration Trazodone HCl 300 mg 10/06/23 21:00 10/09/23 20:54 Trazodone 150 Mg Tablet PO 300 mg BEDTIME JENS Administration PFSH Acute 2 PFSH: Medical History PTSD (post-traumatic stress disorder) Suicidal ideation Cannabis dependence, episodic use last use 03/26/23 Major depressive disorder, recurrent, severe with psychotic symptoms Nicotine dependence due to vaping tobacco product Vaping nicotine Chronic post-traumatic stress disorder Alcohol use disorder, severe, dependence last use 03/26/23 Psychiatric care Uncontrolled type 2 diabetes with neuropathy Sacroiliitis H/O Belkys-Valenzuela syndrome (~07/2019) EGD at [facility]. EGD 10/26 negative. Chronic back pain Congestive heart failure Diabetes mellitus MONTANO (nonalcoholic steatohepatitis) Borderline personality disorder Bilateral primary osteoarthritis of hip Surgical History History of hysterectomy History of esophagogastroduodenoscopy H/O colonoscopy H/O cervical spine surgery Family History Son Suicide September 2019 Other Cancer Hypertension Psychiatric illness Social History Smoking and tobacco/nicotine status: current every day tobacco/nicotine user cigarettes [ Other cigarette details: When vape breaks she returns to cigarettes] and e-cigarettes E-Cigarette Details: vaporizer device and with nicotine E-cig/vape details: 6000 puffs in each device, uses 3 per month Quit status (tobacco/nicotine): not considering quitting Second hand smoke exposure: Yes Alcohol intake: current Alcohol intake frequency: few times a month Alcohol type: hard liquor Substance/Drug Use: current Substance/Drug use frequency: daily Other substance/drug use details: medical card Adopted: No Caregiver/support person: Yes (cleans and runs errands) Lives independently: Yes Household members: none Housing: Apartment Marital status: Single Number of children: 2 Number of grandchildren: 0 Highest education level completed: Associate Degree: Occupational, Technical, Vocational Program 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 service: No Current occupational status: disabled Current occupational exposures/hazards: No Pets and animals: Yes Pets & animals: cat(s) Leisure activites: music, games and other Leisure activities details: watch a lot of movies Sexually active: No Do you think of yourself as: Straight/Heterosexual Current gender identity: Female Aparna/Judaism: Rastafari Special aparna needs: No Agree to transfusion: Yes Female Reproductive History: Para: 2 Spontaneous abortions: Yes (10) Vitals/I&O/Wt Last Vital Signs Temp 98.6 F 10/10/23 06:00 Pulse 77 10/10/23 06:00 Resp 15 10/10/23 06:00 BP 117/67 10/10/23 06:00 Pulse Ox 93 10/10/23 06:00 O2 Del Method Room Air 10/10/23 06:00 Physical Exam 2 Narrative: General exam is a white female, with some swelling in her face including her upper and lower eyelids, cheeks. HEENT: See above. No swelling of tongue is noted Neck is supple Cardiovascular regular in rhythm without murmur Lungs clear Abdomen soft nontender. Positive bowel sounds. exam is deferred Extremities 1+ edema bilaterally. No cyanosis or clubbing. Skin erythematous macular rash over cheeks consistent with rosacea Neuro no focal deficits Data 10/08/23 18:09 10/05/23 18:21 A&P Assessment and plan (1) Edema: Patient with some edema, mainly upper and lower eyelids. There is some significant edema in her lower extremities as well. There is no itching, tongue swelling, wheezing to suggest allergy at this point. No new medications have been introduced. The likely etiology for her edema may be her alcoholic liver disease and likely low albumin. It is possible her albumin on admission was falsely at the lower limits of normal secondary to hemoconcentration. Will check CBC, CMP, urinalysis. Encourage patient and nursing to let me know if this worsens After review of her laboratory will determine whether Aldactone should be initiated for her facial and lower extremity swelling. I do not think heart failure is a likely cause. (2) Transaminitis: Patient with low platelets, elevated LFTs all consistent with her alcoholic liver disease. Encouraged her to abstain from alcohol Repeat CBC and CMP today Check hepatitis panel Plan Other medical problems outlined in her past medical history as well as by psychiatry Thank you for this consultation Further recommendations after evaluation of lab. Consult Attestations 2 Medical Necessity Statement: As per primary Diagnoses Edema R60.9 Transaminitis R74.01 Time Spent (min) 40
[2023-10-10] MEDS: sertraline 50 mg Tablet 75 MG PO (09:46)
[2023-10-10] MEDS: isosorbide mononitrate ER 30 mg Tablet PO (09:46)
[2023-10-10] MEDS: folic acid 1 mg Tablet PO (09:46)
[2023-10-10] MEDS: thiamine 100 mg Tablet PO (09:47)
[2023-10-10] MEDS: nicotine 21 mg Patch 1 PATCH TRANSDERMA (09:47)
[2023-10-10] MEDS: multivitamin therapeutic Tablet 1 TAB PO (09:54)
[2023-10-10] MEDS: HYDROcodone-acetaminophen 10-325 mg Tablet 1 TAB PO (11:01)
[2023-10-10 11:19] LABS: Basophils % 0.4 %; Eosinophils # 0.1 10^3/uL (0.0-0.8); Eosinophils % 1.6 %; Hematocrit 35.1 % (36-47); Lymphocytes # 0.7 10^3/uL (0.8-4.8); Mean Corpuscular HGB Conc 33.9 g/dL (30-55); Mean Corpuscular Volume 97.2 fl (85-98); Mean Platelet Volume 9.9 fL (7.4-10.4); Monocytes # 0.3 10^3/uL (0.2-0.9); Neutrophils # 3.32 10^3/uL (1.8-7.7); Neutrophils % 74.6 %; Nucleated Red Blood Cells % 0 %; Platelet Count 73 10^3/cmm (157-399); Red Blood Count 3.61 10^6/uL (3.85-5.65); Red Cell Distribution Width 14.3 % (12.1-15.1); White Blood Count 4.45 10^3/uL (3.29-11.43)
[2023-10-10 11:31] LABS: Alanine Aminotransferase 35 U/L (0-33); Albumin Level 3.3 g/dL (3.5-5.2); Alkaline Phosphatase 178 U/L (35-105); Anion Gap 13.4 (5-19); Aspartate Amino Transferase 73 U/L (0-32); Blood Urea Nitrogen 10 mg/dL (6-20); Calcium 8.8 mg/dL (8.5-10.5); Carbon Dioxide 27 mmol/L (22-29); Chloride 104 mmol/L (98-107); Creatinine Clr Calc Pharmacy 146.6397; Globulin 2.8 g/dL (1.3-4.6); Glomerular Filtration Rate 127.6 mL/min (90-130); Glucose 99 mg/dL (65-115); Osmolality Calculated 289 mOsm/kg (285-295); Potassium 4.4 mmol/L (3.5-5.1); Sodium 140 mmol/L (136-145); Total Bilirubin 1.7 mg/dL (0.15-1.2); Total Protein 6.1 g/dL (6.6-8.7)
[2023-10-10 11:49] LABS: Hepatitis A Antibody IgM Non-Reactive (Nonreactive); Hepatitis B Core IgM Non-Reactive (Nonreactive); Hepatitis B Surface Antigen Non-Reactive (Nonreactive); Hepatitis C Virus Antibody Non-Reactive (Nonreactive)
[2023-10-10 12:24] LABS: Bilirubin Urine Neg (Negative); Blood Urine Neg (Negative); Glucose Urine UA Norm (Normal); Ketones Urine Negative (Negative); Leukocyte Esterase Urine 1+ (Negative); Nitrate Urine Negative (Negative); Protein Urine Neg (Negative); Urine Appearance Slightly Cloudy (CLEAR); Urine Color Yellow (Yellow); Urobilinogen Urine Norm (Negative); pH Urine 8 (5-7)
[2023-10-10 12:25] LABS: Bacteria Urine 1+ /hpf; RBC Urine 0-4 /hpf (0-2)
[2023-10-10 14:00] VITALS: BP 104/70; PULSE 87; RESP 16; TEMP 37.2; O2SAT 100
[2023-10-10] MEDS: spironolactone 25 mg Tablet 50 MG PO (14:30)
[2023-10-10] MEDS: OLANZapine 5 mg ODT PO (14:30)
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
[2023-10-10 15:57] VITALS: BP 104/70; PULSE 87; RESP 16; TEMP 37.2; O2SAT 100
--- NOTE | 2023-10-10 16:05 | DCPLANNER ---
IMM rights explained to pt and given to pt and copy placed in file.
== END 2023-10-10 16:49 | DRG 881 ==
LOC: ER 19:19 → NP 19:28
PROVIDERS: Internal Medicine; Admitting Provider Psychiatry & Neurology Psychiatry; Emergency Provider Emergency Medicine; PCP Family Medicine; Visit Provider Psychiatry & Neurology Psychiatry
DX: F32.A Depression, unspecified (principal); R45.851 Suicidal ideations; Y90.6 Blood alcohol level of 120-199 mg/100 ml; Z91.148 Patient's other noncompliance with medication regimen for other reason; F10.20 Alcohol dependence, uncomplicated; F17.210 Nicotine dependence, cigarettes, uncomplicated; F60.3 Borderline personality disorder; F43.10 Post-traumatic stress disorder, unspecified; R60.1 Generalized edema; R74.01 Elevation of levels of liver transaminase levels; K70.9 Alcoholic liver disease, unspecified; F41.9 Anxiety disorder, unspecified
CPT/HCPCS: 36415; 36416; 73110; 73130; 80053; 80074; 80306; 80307; 81001; 81025; 82962; 85025; 96372; 97150; 97165; 99285; J1200; J3411; Q0162

== ENCOUNTER → 2023-10-16 13:21 | Outpatient (BNVA) | payer SELFPAY ==
[2023-06-26 14:03] VITALS: BP 147/78; BMI 37.0
== END ==
PROVIDERS: PCP Family Medicine; Visit Provider Physician Assistant
DX: S62.396D Other fracture of fifth metacarpal bone, right hand, subsequent encounter for fracture with routine healing; X58.XXXD Exposure to other specified factors, subsequent encounter
CPT/HCPCS: 73130

== ENCOUNTER 2023-10-30 09:31 | Emergency (ER) | payer MEDICARE, MEDICAID, SELFPAY ==
[2023-06-26 14:03] VITALS: BP 147/78; BMI 37.0
[2023-10-30] VITALS (7 sets, daily range): BP systolic 71–124; BP diastolic 33–59; PULSE 43–57; RESP 18; TEMP 36.9; O2SAT 98–100; BMI 31.7
--- NOTE | 2023-10-30 09:33 | XR_ITS ---
WS: [id number] PORTABLE CHEST HISTORY: chest pain COMPARISON: 07/28/2023 Lungs are clear and well expanded. No pleural effusion or pneumothorax. Cardiac size: Normal. Mediastinum/Aorta: Normal mediastinum. No osseous abnormality seen. XR/XR chest 1V portable [id number] IMPRESSION: Unremarkable portable chest.
--- NOTE | 2023-10-30 09:36 | ECG_ITS ---
[facility] Test Date: 2023-10-30 Pat Name: Kay Calles Department: Room: Gender: Female Personal Security Specialist: : [id number] Requested By: Margaret Veras Order Number: [id number] Parker MD: Joel Garza M.D. Measurements Intervals [place] Rate: 54 P: 36 CO: 155 QRS: 41 QRSD: 81 T: 46 QT: 506 QTc: 483 Interpretive Statements SINUS BRADYCARDIA LOW QRS VOLTAGE IN PRECORDIAL LEADS [QRS DEFLECTION < 1.0 mV IN CHEST LEADS] PROLONGED QT INTERVAL Compared to ECG 07/28/2023 13:51:14 Low QRS voltage now present Sinus rhythm no longer present Electronically Signed On 10-30-2023 10:12:58 CDT by Joel Garza M.D. [email or web address]
--- NOTE | 2023-10-30 09:38 | ED_ITS ---
HPI - Chest Pain 2 General: Chief Complaint: Chest Pain Stated Complaint: CP Time Seen by Provider: 10/30/23 09:32 Source: patient and EMS Mode of arrival: EMS Limitations: no limitations History of Present Illness: Patient is a 58-year-old female with a history of neuropathy, left foot drop, chronic back pain, MDD, borderline personality disorder, alcohol/tobacco/cannabis use disorder, COPD, enlarged right side of my heart , and reported one previous minor heart attack and stroke here via [facility] for evaluation of chest pain. States I have heart problems and panic attacks and it is hard to tell the difference . States chest pain began an hour [employer] and located in the right side of her chest with radiation into her right arm and neck. Pain is made worse with movement and deep inhalation. States it started at rest while she was in a group meeting at [employer]. 12 lead EKG performed by EMS in route is unremarkable. MD complaint: chest pain Pertinent past history: coronary artery disease and prior [place] Onset (ago): hour(s) Timing of current episode: constant Prior episodes: Yes Onset: during rest Pain location: right chest Pain radiation: right arm and neck Severity: moderate Relieving factors: nothing Exacerbating factors: palpation and movement Associated symptoms: Reports dyspnea; Deny abdominal pain, fever(s), nausea, palpitations, syncope or vomiting Treatment prior to arrival: none Risk Factors: Coronary artery disease risk factors: smoking history Thoracic aortic dissection risk factors: none Related Data: On Oral Contraceptives: No Review of Systems 2 Const: Denies: fever(s), chills, body aches, fatigue or malaise Eyes: Denies: change in vision or blurry vision Card: Reports: chest pain; Denies: palpitations, irregular heart rhythm, edema, swelling of feet/ankles, lightheadedness, syncope, pre-syncope, dyspnea on exertion, orthopnea, leg pain with exertion or acrocyanosis Resp: Reports: dyspnea and pain on inspiration; Denies: productive cough, non-productive cough, wheezing, change in phlegm color, hemoptysis or chest congestion GI: Denies: abdominal pain, nausea, vomiting, heartburn or diarrhea : Denies: dysuria Musc: Denies: neck pain, back pain, extremity pain, extremity swelling or joint pain Skin/Breast: Denies: rash Neuro: Denies: headache(s) or dizziness PFSH ED 2 PFSH: Medical History PTSD (post-traumatic stress disorder) Suicidal ideation Cannabis dependence, episodic use last use 03/26/23 Major depressive disorder, recurrent, severe with psychotic symptoms Nicotine dependence due to vaping tobacco product Vaping nicotine Chronic post-traumatic stress disorder Alcohol use disorder, severe, dependence last use 03/26/23 Psychiatric care Uncontrolled type 2 diabetes with neuropathy Sacroiliitis H/O Belkys-Valenzuela syndrome (~07/2019) EGD at [facility]. EGD 10/26 negative. Chronic back pain Congestive heart failure Diabetes mellitus MONTANO (nonalcoholic steatohepatitis) Borderline personality disorder Bilateral primary osteoarthritis of hip Surgical History History of hysterectomy History of esophagogastroduodenoscopy H/O colonoscopy H/O cervical spine surgery Family History Son Suicide September 2019 Other Cancer Hypertension Psychiatric illness Social History Smoking and tobacco/nicotine status: current every day tobacco/nicotine user cigarettes [ Other cigarette details: When vape breaks she returns to cigarettes] and e-cigarettes E-Cigarette Details: vaporizer device and with nicotine E-cig/vape details: 6000 puffs in each device, uses 3 per month Quit status (tobacco/nicotine): not considering quitting Second hand smoke exposure: Yes Alcohol intake: current Alcohol intake frequency: few times a month Alcohol type: hard liquor Substance/Drug Use: current Substance/Drug use frequency: daily Other substance/drug use details: medical card Adopted: No Caregiver/support person: Yes (cleans and runs errands) Lives independently: Yes Household members: none Housing: Apartment Marital status: Single Number of children: 2 Number of grandchildren: 0 Highest education level completed: Associate Degree: Occupational, Technical, Vocational Program Education level details: ACUPUNCTURE PHYSICIAN service: No Current occupational status: disabled Current occupational exposures/hazards: No Pets and animals: Yes Pets & animals: cat(s) Leisure activites: music, games and other Leisure activities details: watch a lot of movies Sexually active: No Do you think of yourself as: Straight/Heterosexual Current gender identity: Female Aparna/Spiritism: Church Special [place] needs: No Agree to transfusion: Yes Female Reproductive History: Para: 2 Spontaneous abortions: Yes (10) Physical Exam 2 Const: COMMON NORMALS: no acute distress, patient oriented x3, no limitations, alert and well nourished GENERAL APPEARANCE: cooperative and appears older than stated age ORIENTATION/CONSCIOUSNESS: Yes awake, Yes oriented to person, Yes oriented to place and Yes oriented to time HENMT: COMMON NORMALS: normocephalic and atraumatic HEAD & SCALP: normal to inspection, normocephalic and atraumatic Neck/C-Spine: COMMON NORMALS: full ROM, no lymphadenopathy, supple and no meningeal signs Chest: COMMONS NORMALS: normal inspection of the chest OTHER: TTP R anterior chest wall Resp: COMMON NORMALS: normal respiratory effort and clear to auscultation bilaterally AUSCULTATION: clear to auscultation bilaterally Cardio: COMMON NORMALS: regular rate and regular rhythm RATE: regular rate RHYTHM: regular rhythm GI: COMMON NORMALS: Normal to inspection, nondistended, normoactive bowel sounds present, Soft to palpation, non-tender, No hepatosplenomegaly present and no masses PALPATION: Yes Soft to palpation and Yes No hepatosplenomegaly present : COMMON NORMALS: Yes no CVA tenderness BLADDER/KIDNEY EXAM: Yes no CVA tenderness Back/Pelvis: COMMON NORMALS: no CVA tenderness and thoracic and lumbar spine normal to inspection Extremity: COMMON NORMALS: normal to inspection, capillary refill normal, no clubbing, cyanosis or edema, no calf tenderness and no pedal edema GENERAL: Y es normal exam except as noted Neuro: KAMERON COMA SCALE: document GCS findings [place] coma scale eye opening: Spontaneous [place] coma scale verbal response: Orientated [place] coma scale motor response: Obey commands K[place] coma scale total score: 15 COMMON NORMALS: patient oriented x3, moves all extremities, no focal motor deficits and no sensory deficits noted SENSORIUM/ORIENTATION: Yes alert, Yes oriented to person, Yes oriented to place and Yes oriented to time MENINGEAL SIGNS: Yes no meningeal signs Skin: COMMON NORMALS: no rashes or lesions noted GENERAL SKIN EXAM: no rashes or lesions noted Course 2 ED course: Patient did have an episode after administration of morphine where she got bradycardic and hypotensive. Fluids were started and patient carefully watched until full resolution of symptoms. At time of discharge she is ambulating here in the ED, talkative, eating/drinking. Her chest pain has improved. Vital Signs: Vital signs: Vital Signs Temperature 98.4 F 10/30/23 09:32 Pulse Rate 46 L 10/30/23 14:27 Respiratory Rate 18 10/30/23 11:13 Blood Pressure 106/47 10/30/23 14:27 Pulse Oximetry 100 10/30/23 14:27 Oxygen Delivery Me thod Room Air 10/30/23 14:27 MDM - Chest Pain Medical Decision Making Patient arrives in no acute distress. She essentially has reproducible right- sided chest wall pain. Vital signs are stable. EKG is nonischemic. She does have a prolonged QT although looking at previous EKGs this seems to be chronic. Some of patient's medications-mainly her psych meds-can cause this. Recommend she speak to prescribing provider. Her labs here with several, most of which chronic, derangements. She is slightly anemic, thrombocytopenic, multiple electrolyte derangements, transaminitis. These have been attributed to her alcoholic liver disease. Recommend she follow up with primary care. She is cleared for discharge from an emergency standpoint. Return precautions given. Medical Records I reviewed the patient's medical records. Lab Data I reviewed the patient's lab results. 10/30/23 09:44 10/30/23 09:44 Radiology Impressions Chest X-Ray 10/30/23 09:33 IMPRESSION: Unremarkable portable chest. Laboratory Results WBC 3.14 10^3/uL (3.29-11.43) L 10/30/23 09:44 RBC 3.18 10^6/uL (3.85-5.65) L 10/30/23 09:44 Hgb 10.30 g/dL (11.27-16.99) L 10/30/23 09:44 Hct 31.5 % (36-47) L 10/30/23 09:44 MCV 99.1 fl (85-98) H 10/30/23 09:44 MCH 32.4 pg (27-33) 10/30/23 09:44 MCHC 32.7 g/dL (30-55) 10/30/23 09:44 RDW 14.6 % (12.1-15.1) 10/30/23 09:44 Plt Count 60 10^3/cmm (157-399) L 10/30/23 09:44 MPV 9.7 fL (7.4-10.4) 10/30/23 09:44 Neut % (Auto) 67.6 % 10/30/23 09:44 Lymph % (Auto) 19.4 % 10/30/23 09:44 [place] % (Auto) 9.9 % 10/30/23 09:44 Eos % (Auto) 2.5 % 10/30/23 09:44 Baso % (Auto) 0.6 % 10/30/23 09:44 Neut # (Auto) 2.12 10^3/uL (1.8-7.7) 10/30/23 09:44 Lymph # (Auto) 0.6 10^3/uL (0.8-4.8) L 10/30/23 09:44 [place] # (Auto) 0.3 10^3/uL (0.2-0.9) 10/30/23 09:44 Eos # (Auto) 0.1 10^3/uL (0.0-0.8) 10/30/23 09:44 Baso # (Auto) 0.0 10^3/uL (0.0-0.1) 10/30/23 09:44 Nucleated RBC % (auto) 0 % 10/30/23 09:44 Nucleated RBCs # 0.0 /100WBC 10/30/23 09:44 Sodium 143 mmol/L (136-145) 10/30/23 09:44 Potassium 3.7 mmol/L (3.5-5.1) 10/30/23 09:44 Chloride 112 mmol/L (98-107) H 10/30/23 09:44 Carbon Dioxide 20 mmol/L (22-29) L 10/30/23 09:44 Anion Gap 14.7 (5-19) 10/30/23 09:44 BUN 5 mg/dL (6-20) L 10/30/23 09:44 Creatinine 0.4 mg/dL (0.5-0.9) L 10/30/23 09:44 GFR Calculation 165.1 mL/min (90-130) H 10/30/23 09:44 Glucose 164 mg/dL (65-115) H 10/30/23 09:44 Calculated Osmolality 297 mOsm/kg (285-295) H 10/30/23 09:44 Calcium 7.9 mg/dL (8.5-10.5) L 10/30/23 09:44 Total Bilirubin 1.9 mg/dL (0.15-1.2) H 10/30/23 09:44 AST 56 U/L (0-32) H 10/30/23 09:44 ALT 33 U/L (0-33) 10/30/23 09:44 Alkaline Phosphatase 167 U/L (35-105) H 10/30/23 09:44 Troponin T Baseline 8 ng/L (0-10) 10/30/23 09:44 Troponin T 120 Minute 7.16 ng/L (0-10) 10/30/23 11:47 Delta Troponin T -0.84 ABS# (0-10) L 10/30/23 11:47 NT-Pro-B Natriuret Pep 150 pg/mL (0-125) H 10/30/23 09:44 Total Protein 5.0 g/dL (6.6-8.7) L 10/30/23 09:44 Albumin 2.9 g/dL (3.5-5.2) L 10/30/23 09:44 Globulin 2.1 g/dL (1.3-4.6) 10/30/23 09:44 All radiology interpretation(s) finalized by discharge Discharge Plan Discharge Patient Disposition: Home Clinical Impression: Chest wall pain Condition: Stable Prescriptions: No Action (DME) [place] AFO to the left See Rx Instructions .Route .MEDSUPPLY Qty: 1 0RF Rx Instructions: As directed hydrocodone-acetaminophen 10-325 mg tablet 1 tab PO Q6H PRN (Reason: pain) 5 Days Qty: 20 0RF (DME) Fast Form Ulnar Gutter See Rx Instructions .Route .MEDSUPPLY Qty: 1 0RF Rx Instructions: As directed (DME) SOLE STITCHER HAND free custom volar fast form See Rx Instructions .Route .MEDSUPPLY Qty: 1 0RF Rx Instructions: As directed albuterol sulfate 90 mcg/actuation HFA aerosol inhaler 1 inh inhalation QID PRN (Reason: shortness of breath or wheezing) Qty: 8.5 0RF budesonide-formoterol [Symbicort] 160-4.5 mcg/actuation HFA aerosol inhaler 1 puff inhalation BID Qty: 10.2 1RF isosorbide mononitrate 30 mg tablet extended release 24 hr 30 mg PO DAILY trazodone 100 mg Tablet 100 mg PO BEDTIME 30 Days Qty: 30 1RF Rx Instructions: ALONG WITH 300MG TO =400MG AT BEDTIME trazodone 150 mg Tablet 300 mg PO BEDTIME 60 Days Qty: 60 1RF Rx Instructions: ALONG WITH 100MG AY=240OM AT BEDTIME folic acid 1 mg Tablet 1 mg PO DAILY 30 Days Qty: 30 1RF sertraline [Zoloft] 100 mg tablet 100 mg PO DAILY Qty: 30 1RF gabapentin 400 mg capsule See Rx Instructions .ROUTE .COMPLEX Rx Instructions: NEEDED TAKE ONE CAPSULE BY MOUTH FOUR TIMES DAILY x2 DAYS, THREE TIMES DAILY FOR x2 DAYS, TWICE DAILY x2 DAYS, Every night AT BEDTIME x2 DAYS. STOP baclofen 10 mg tablet 10 mg PO TID PRN (Reason: MUSCLE SPASMS) mupirocin 2 % ointment 1 applic TOPICAL PRN PRN (Reason: Skin Irritation) propranolol 20 mg tablet 20 mg PO TID PRN (Reason: UNKNOWN) hydroxyzine pamoate 25 mg capsule 25 mg PO TID PRN (Reason: UNKNOWN) topiramate 50 mg tablet 50 mg PO BEDTIME quetiapine 50 mg tablet 50 mg PO BEDTIME Discharge Orders: Discharge ED (Routine); Ordered 10/30/23 Ordered By: Margaret Veras Referrals: Tam Del Valle MD [Primary Care Provider] - Activity Restrictions/Additional Instructions: As we discussed you can take epst-[id number] analgesics sutures Motrin or Tylenol to up with your discomfort as well as ice and heat in addition to rest. Please follow-up with primary care later this week/early next week for re- evaluation. You may return to the emergency department for worsening or severe chest pain, shortness of breath or difficulty breathing, fevers, or any other concerns you may have. Coding Level of Care Code ED Explosive Operator Bomb for Rober Arellano
[2023-10-30 09:51] LABS: Basophils % 0.6 %; Eosinophils # 0.1 10^3/uL (0.0-0.8); Eosinophils % 2.5 %; Hematocrit 31.5 % (36-47); Lymphocytes # 0.6 10^3/uL (0.8-4.8); Lymphocytes % 19.4 %; Mean Corpuscular HGB Conc 32.7 g/dL (30-55); Mean Corpuscular Hemoglobin 32.4 pg (27-33); Mean Corpuscular Volume 99.1 fl (85-98); Mean Platelet Volume 9.7 fL (7.4-10.4); Monocytes # 0.3 10^3/uL (0.2-0.9); Monocytes % 9.9 %; Neutrophils # 2.12 10^3/uL (1.8-7.7); Neutrophils % 67.6 %; Nucleated Red Blood Cells % 0 %; Platelet Count 60 10^3/cmm (157-399); Red Blood Count 3.18 10^6/uL (3.85-5.65); Red Cell Distribution Width 14.6 % (12.1-15.1); White Blood Count 3.14 10^3/uL (3.29-11.43)
[2023-10-30 10:14] LABS: Alanine Aminotransferase 33 U/L (0-33); Albumin Level 2.9 g/dL (3.5-5.2); Alkaline Phosphatase 167 U/L (35-105); Anion Gap 14.7 (5-19); Aspartate Amino Transferase 56 U/L (0-32); Blood Urea Nitrogen 5 mg/dL (6-20); Calcium 7.9 mg/dL (8.5-10.5); Carbon Dioxide 20 mmol/L (22-29); Chloride 112 mmol/L (98-107); Creatinine Clr Calc Pharmacy 176.5514; Globulin 2.1 g/dL (1.3-4.6); Glomerular Filtration Rate 165.1 mL/min (90-130); Glucose 164 mg/dL (65-115); Osmolality Calculated 297 mOsm/kg (285-295); Potassium 3.7 mmol/L (3.5-5.1); Sodium 143 mmol/L (136-145); Total Bilirubin 1.9 mg/dL (0.15-1.2)
[2023-10-30 10:15] LABS: Troponin(5th) Baseline 8 ng/L (0-10)
[2023-10-30] MEDS: LORazepam 2 mg/mL INJ 1 mL 0.5 MG IVP (10:17)
[2023-10-30] MEDS: ketorolac 30 mg/mL INJ 15 MG IVP (10:19)
[2023-10-30 10:28] LABS: NT Pro B Type Natriuretic Pept 150 pg/mL (0-125)
[2023-10-30] MEDS: morphine 4 mg/mL SDV 1 mL IM (11:13)
--- NOTE | 2023-10-30 11:33 | ECG_ITS ---
[facility] Test Date: 2023-10-30 Pat Name: Kay Calles Department: Room: Gender: Female Manager [place]: : 1965 Requested By: Margaret Veras Order Number: [id number] Parker MD: Joel Garza M.D. Measurements Intervals [place] Rate: 39 P: -49 WI: 131 QRS: 51 QRSD: 90 T: 36 QT: 493 QTc: 400 Interpretive Statements SINUS BRADYCARDIA NONSPECIFIC T-WAVE ABNORMALITY Compared to ECG 10/30/2023 09:36:17 T-wave abnormality now present Prolonged QT interval no longer present Electronically Signed On 10-30-2023 15:30:15 CDT by Joel Garza M.D. [id number]
[2023-10-30 12:32] LABS: Troponin 5 2HR 7.16 ng/L (0-10)
[2023-10-30 12:34] LABS: Troponin 5 2HR Delta -0.84 ABS# (0-10)
== END 2023-10-30 15:05 | disposition home or self-care (01) ==
PROVIDERS: Emergency Provider Physician Assistant; PCP Family Medicine
DX: R07.89 Other chest pain (principal); F17.210 Nicotine dependence, cigarettes, uncomplicated; F17.290 Nicotine dependence, other tobacco product, uncomplicated; E11.40 Type 2 diabetes mellitus with diabetic neuropathy, unspecified; I50.9 Heart failure, unspecified
CPT/HCPCS: 36415; 71045; 80053; 83880; 84484; 85025; 93005; 96372; 96374; 96375; 99285; J1885; J2060; J2270

== ENCOUNTER 2023-10-31 14:39 | Emergency (ER) | payer MEDICARE, MEDICAID, SELFPAY ==
[2023-06-26 14:03] VITALS: BP 147/78; BMI 37.0
--- NOTE | 2023-10-31 14:42 | ECG_ITS ---
[facility] Test Date: 2023-10-31 Pat Name: Kay Calles Department: Room: Gender: Female Project [employer]: : 1965 Requested By: Carmela Haro Order Number: [id number] Parker MD: Joel Garza M.D. Measurements Intervals [place] Rate: 63 P: 34 LA: 151 QRS: 40 QRSD: 79 T: 47 QT: 447 QTc: 461 Interpretive Statements SINUS RHYTHM Compared to ECG 10/30/2023 11:33:14 Sinus bradycardia no longer present T-wave abnormality no longer present Electronically Signed On 10-31-2023 15:55:21 CDT by Joel Garza M.D. [id number]
--- NOTE | 2023-10-31 14:42 | XR_ITS ---
WS: [id number] XR chest 1V portable [id number] REASON FOR EXAM: weakness FINDINGS: The heart is at the upper limits of normal/mild cardiomegaly. Upper lobe pulmonary veins are prominen t. Compared to the examination of the previous day interstitial reticular opacities are now seen in the right lower lung and likely in the left lower lung as well. No other interval change is identified. XR/XR chest 1V portable [id number] IMPRESSION: Abnormalities compared to the prior day. The rapidity of onset suggests pulmona ry edema i.e. congestive heart failure. Pneumonitis would be less likely.
[2023-10-31 15:01] VITALS: BP 132/77; PULSE 67; RESP 18; TEMP 37.3; O2SAT 98
[2023-10-31 16:38] LABS: Basophils % 0.4 %; Eosinophils # 0.1 10^3/uL (0.0-0.8); Eosinophils % 1.6 %; Hematocrit 30.2 % (36-47); Lymphocytes # 0.6 10^3/uL (0.8-4.8); Lymphocytes % 12.7 %; Mean Corpuscular HGB Conc 33.4 g/dL (30-55); Mean Corpuscular Hemoglobin 32.7 pg (27-33); Mean Corpuscular Volume 97.7 fl (85-98); Mean Platelet Volume 10.7 fL (7.4-10.4); Monocytes # 0.3 10^3/uL (0.2-0.9); Neutrophils # 3.56 10^3/uL (1.8-7.7); Neutrophils % 79.1 %; Nucleated Red Blood Cells % 0 %; Platelet Count 69 10^3/cmm (157-399); Red Blood Count 3.09 10^6/uL (3.85-5.65); Red Cell Distribution Width 14.5 % (12.1-15.1)
[2023-10-31 17:00] VITALS: BP 109/56; PULSE 58; RESP 15; O2SAT 97
--- NOTE | 2023-10-31 17:02 | ED_ITS ---
HPI - Weakness 2 General: Chief complaint: Weakness Stated complaint: dizzy, weakness Time Seen by Provider: 10/31/23 16:47 Source: patient Mode of arrival: ambulatory Limitations: no limitations History of Present Illness: 58-year-old female who states over the l ast 2 days she has been feeling very tired fatigue has had low-grade fevers with chills. She seen her yesterday states she had felt worse today. Denies any cough or vomiting. Said some mild dyspnea. Denies any worse improving factors. Associated symptoms: Reports chills; Denies chest pain, dysuria, fever(s), headache(s), nausea or vomiting Review of Systems 2 Const: Reports: chills, fatigue and malaise; Denies: fever(s), body aches or change in appetite ENMT: Denies: throat pain or dental pain Card: Denies: chest pain Resp: Denies: dyspnea GI: Denies: abdominal pain, nausea, vomiting or diarrhea : Denies: dysuria Musc: Denies: neck pain or back pain Skin/Breast: Denies: rash Neuro: Denies: headache(s) PFSH ED 2 PFSH: Medical History PTSD (post-traumatic stress disorder) Suicidal ideation Cannabis dependence, episodic use last use 03/26/23 Major depressive disorder, recurrent, severe with psychotic symptoms Nicotine dependence due to vaping tobacco product Vaping nicotine Chronic post-traumatic stress disorder Alcohol use disorder, severe, dependence last use 03/26/23 Psychiatric care Uncontrolled type 2 diabetes with neuropathy Sacroiliitis H/O Belkys-Valenzuela syndrome (~07/2019) EGD at [facility]. EGD 10/26 negative. Chronic back pain Congestive heart failure Diabetes mellitus MONTANO (nonalcoholic steatohepatitis) Borderline personality disorder Bilateral primary osteoarthritis of hip Surgical History History of hysterectomy History of esophagogastroduodenoscopy H/O colonoscopy H/O cervical spine surgery Family History Son Suicide September 2019 Other Cancer Hypertension Psychiatric illness Social History Smoking and tobacco/nicotine status: current every day tobacco/nicotine user cigarettes [ Other cigarette details: When vape breaks she returns to cigarettes] and e-cigarettes E-Cigarette Details: vaporizer device and with nicotine E-cig/vape details: 6000 puffs in each device, uses 3 per month Quit status (tobacco/nicotine): not considering quitting Second hand smoke exposure: Yes Alcohol intake: current Alcohol intake frequency: few times a month Alcohol type: hard liquor Substance/Drug Use: current Substance/Drug use frequency: daily Other substance/drug use details: medical card Adopted: No Caregiver/support person: Yes (cleans and runs errands) Lives independently: Yes Household members: none Housing: Apartment Marital status: Single Number of children: 2 Number of grandchildren: 0 Highest education level completed: Associate Degree: Occupational, Technical, Vocational Program Education level details: [facility] service: No Current occupational status: disabled Current occupational exposures/hazards: No Pets and animals: Yes Pets & animals: cat(s) Leisure activites: music, games and other Leisure activities details: watch a lot of movies Sexually active: No Do you think of yourself as: Straight/Heterosexual Current gender identity: Female Aparna/Buddhist: Sabianist Special aparna needs: No Agree to transfusion: Yes Female Reproductive History: Para: 2 Spontaneous abortions: Yes (10) Physical Exam 2 Const: COMMON NORMALS: patient oriented x3 HENMT: COMMON NORMALS: normocephalic and atraumatic HEAD & SCALP: n ormocephalic and atraumatic Eye: COMMON NORMALS: Equal, round and reactive pupils present and EOMs intact bilaterally PUPIL: Yes Equal, round and reactive pupils present Neck/C-Spine: COMMON NORMALS: full ROM and supple Chest: COMMONS NORMALS: normal inspection of the chest Resp: COMMON NORMALS: No retractions and clear to auscultation bilaterally AUSCULTATION: clear to auscultation bilaterally and rales Cardio: COMMON NORMALS: regular rate, regular rhythm and No murmurs present (Cardio) RATE: regular rate RHYTHM: regular rhythm GI: COMMON NORMALS: Normal to inspection, nondistended, normoactive bowel sounds present, Soft to palpation, non-tender and no masses PALPATION: Yes Soft to palpation Extremity: COMMON NORMALS: normal to inspection and full ROM Neuro: COMMON NORMALS: patient oriented x3, moves all extremities and no focal motor deficits Psych: COMMON NORMALS: mental status grossly normal, Normal thought process present and cooperative THOUGHT PROCESS: Normal thought process present Skin: COMMON NORMALS: no rashes or lesions noted and no wounds GENERAL SKIN EXAM: no rashes or lesions noted Course 2 Vital Signs: Vital signs: Vital Signs Temperature 98.2 F 10/31/23 19:15 Pulse Rate 58 L 10/31/23 17:00 Respiratory Rate 15 10/31/23 17:00 Blood Pressure 109/56 10/31/23 17:00 Pulse Oximetry 97 10/31/23 17:00 Oxygen Delivery Me thod Room Air 10/31/23 17:00 MDM - Weakness Medical Decision Making Patient presents here with generalized weakness likely right lower lobe pneumonia seen on chest x-ray she has no signs of severe pneumonia afebrile here not requiring oxygen will treat with doxycycline she stable for discharge return if worsening. Medical Records I reviewed the patient's medical records. Lab Data I reviewed the patient's lab results. 10/31/23 16:27 10/31/23 16:27 Radiology Impressions Chest X-Ray 10/31/23 14:42 IMPRESSION: Abnormalities compared to the prior day. The rapidity of onset suggests pulmonary edema i.e. congestive heart failure. Pneumonitis would be less likely. Laboratory Results WBC 4.50 10^3/uL (3.29-11.43) 10/31/23 16: RBC 3.09 10^6/uL (3.85-5.65) L 10/31/23 16:27 Hgb 10.10 g/dL (11.27-16.99) L 10/31/23 16:27 Hct 30.2 % (36-47) L 10/31/23 16:27 MCV 97.7 fl (85-98) 10/31/23 16:27 MCH 32.7 pg (27-33) 10/31/23 16: MCHC 33.4 g/dL (30-55) 10/31/23 16:27 RDW 14.5 % (12.1-15.1) 10/31/23 16:27 Plt Count 69 10^3/cmm (157-399) L 10/31/23 16:27 MPV 10.7 fL (7.4-10.4) H 10/31/23 16:27 Neut % (Auto) 79.1 % 10/31/23 16:27 Lymph % (Auto) 12.7 % 10/31/23 16:27 [place] % (Auto) 6.0 % 10/31/23 16:27 Eos % (Auto) 1.6 % 10/31/23 16:27 Baso % (Auto) 0.4 % 10/31/23 16:27 Neut # (Auto) 3.56 10^3/uL (1.8-7.7) 10/31/23 16:27 Lymph # (Auto) 0.6 10^3/uL (0.8-4.8) L 10/31/23 16:27 [place] # (Auto) 0.3 10^3/uL (0.2-0.9) 10/31/23 16:27 Eos # (Auto) 0.1 10^3/uL (0.0-0.8) 10/31/23 16: Baso # (Auto) 0.0 10^3/uL (0.0-0.1) 10/31/23 16: Nucleated RBC % (auto) 0 % 10/31/23 16: Nucleated RBCs # 0.0 /100WBC 10/31/23 16:27 Sodium 137 mmol/L (136-145) 10/31/23 16:27 Potassium 3.8 mmol/L (3.5-5.1) 10/31/23 16:27 Chloride 105 mmol/L (98-107) 10/31/23 16:27 Carbon Dioxide 23 mmol/L (22-29) 10/31/23 16:27 Anion Gap 12.8 (5-19) 10/31/23 16:27 BUN 7 mg/dL (6-20) 10/31/23 16:27 Creatinine 0.8 mg/dL (0.5-0.9) 10/31/23 16:27 GFR Calculation 74.2 mL/min (90-130) L 10/31/23 16:27 Glucose 136 mg/dL (65-115) H 10/31/23 16:27 Calculated Osmolality 284 mOsm/kg (285-295) L 10/31/23 16:27 Calcium 8.2 mg/dL (8.5-10.5) L 10/31/23 16:27 Total Bilirubin 2.0 mg/dL (0.15-1.2) H 10/31/23 16:27 AST 54 U/L (0-32) H 10/31/23 16:27 ALT 30 U/L (0-33) 10/31/23 16:27 Alkaline Phosphatase 171 U/L (35-105) H 10/31/23 16:27 NT-Pro-B Natriuret Pep 114 pg/mL (0-125) 10/31/23 17:33 Total Protein 5.1 g/dL (6.6-8.7) L 10/31/23 16:27 Albumin 2.8 g/dL (3.5-5.2) L 10/31/23 16:27 Globulin 2.3 g/dL (1.3-4.6) 10/31/23 16:27 Coronavirus 229E (PCR) Not detected (NOT DETECT) 10/31/23 17:02 SARS-CoV-2 (PCR) Not detected (NOT DETECT) 10/31/23 17:02 SARS-CoV-2 Ag (Rapid) negative (Negative) 10/31/23 17:12 All radiology interpretation(s) finalized by discharge Discharge Plan Discharge Patient Disposition: Home Clinical Impression: Pneumonia Condition: Stable Prescriptions: New doxycycline hyclate 100 mg tablet 100 mg PO BID 7 Days Qty: 14 0RF No Action (DME) [place] AFO to the left See Rx Instructions .Route .MEDSUPPLY Qty: 1 0RF Rx Instructions: As directed hydrocodone-acetaminophen 10-325 mg tablet 1 tab PO Q6H PRN (Reason: pain) 5 Days Qty: 20 0RF (DME) Fast Form Ulnar Gutter See Rx Instructions .Route .MEDSUPPLY Qty: 1 0RF Rx Instructions: As directed (DME) LOFTER free custom volar fast form See Rx Instructions .Route .MEDSUPPLY Qty: 1 0RF Rx Instructions: As directed albuterol sulfate 90 mcg/actuation HFA aerosol inhaler 1 inh inhalation QID PRN (Reason: shortness of breath or wheezing) Qty: 8.5 0RF budesonide-formoterol [Symbicort] 160-4.5 mcg/actuation HFA aerosol inhaler 1 puff inhalation BID Qty: 10.2 1RF isosorbide mononitrate 30 mg tablet extended release 24 hr 30 mg PO DAILY trazodone 100 mg Tablet 100 mg PO BEDTIME 30 Days Qty: 30 1RF Rx Instructions: ALONG WITH 300MG TO =400MG AT BEDTIME trazodone 150 mg Tablet 300 mg PO BEDTIME 60 Days Qty: 60 1RF Rx Instructions: ALONG WITH 100MG [id number] AT BEDTIME folic acid 1 mg Tablet 1 mg PO DAILY 30 Days Qty: 30 1RF sertraline [Zoloft] 100 mg tablet 100 mg PO DAILY Qty: 30 1RF gabapentin 400 mg capsule See Rx Instructions .ROUTE .COMPLEX Rx Instructions: NEEDED TAKE ONE CAPSULE BY MOUTH FOUR TIMES DAILY x2 DAYS, THREE TIMES DAILY FOR x2 DAYS, TWICE DAILY x2 DAYS, Every night AT BEDTIME x2 DAYS. STOP baclofen 10 mg tablet 10 mg PO TID PRN (Reason: MUSCLE SPASMS) mupirocin 2 % ointment 1 applic TOPICAL PRN PRN (Reason: Skin Irritation) propranolol 20 mg tablet 20 mg PO TID PRN (Reason: UNKNOWN) hydroxyzine pamoate 25 mg capsule 25 mg PO TID PRN (Reason: UNKNOWN) topiramate 50 mg tablet 50 mg PO BEDTIME quetiapine 50 mg tablet 50 mg PO BEDTIME Discharge Orders: Discharge ED (Routine); Ordered 10/31/23 Ordered By: Carmela Haro Referrals: Tam Del Valle MD [Primary Care Provider] - Discharge Diet: Advance as tolerated Discharge Activity: Resume usual activity Patient Instructions: Pneumonia (ED) Coding Level of Care Code ED Relief Operator for Rober Arellano
[2023-10-31 17:05] LABS: Alanine Aminotransferase 30 U/L (0-33); Albumin Level 2.8 g/dL (3.5-5.2); Alkaline Phosphatase 171 U/L (35-105); Anion Gap 12.8 (5-19); Aspartate Amino Transferase 54 U/L (0-32); Blood Urea Nitrogen 7 mg/dL (6-20); Calcium 8.2 mg/dL (8.5-10.5); Carbon Dioxide 23 mmol/L (22-29); Chloride 105 mmol/L (98-107); Creatinine Clr Calc Pharmacy 85.4643; Globulin 2.3 g/dL (1.3-4.6); Glomerular Filtration Rate 74.2 mL/min (90-130); Glucose 136 mg/dL (65-115); Osmolality Calculated 284 mOsm/kg (285-295); Potassium 3.8 mmol/L (3.5-5.1); Sodium 137 mmol/L (136-145); Total Protein 5.1 g/dL (6.6-8.7)
[2023-10-31 17:59] LABS: SARS Covid-2 Antigen negative (Negative)
[2023-10-31 19:10] LABS: NT Pro B Type Natriuretic Pept 114 pg/mL (0-125)
[2023-10-31 19:15] VITALS: TEMP 36.8
[2023-10-31 19:27] LABS: Adenovirus Not Detected (NOT DETECT); Chlamydia Pneumoniae Not Detected (NOT DETECT); Coronavirus 229E,HKU1,NL63,OC4 Not Detected (NOT DETECT); Human Metapneumovirus Not Detected (NOT DETECT); Human Rhinovirus/Enterovirus Not Detected (NOT DETECT); Influenza A Not Detected (NOT DETECT); Influenza A H1 Not Detected (NOT DETECT); Influenza A H1-2009 Not Detected (NOT DETECT); Influenza A H3 Not Detected (NOT DETECT); Influenza B Not Detected (NOT DETECT); Mycoplasma Pneumoniae Not Detected (NOT DETECT); Parainfluenza Virus Type 1 Not Detected (NOT DETECT); Parainfluenza Virus Type 2 Not Detected (NOT DETECT); Parainfluenza Virus Type 3 Not Detected (NOT DETECT); Parainfluenza Virus Type 4 Not Detected (NOT DETECT); Respiratory Syncytial Virus A Not Detected (NOT DETECT); Respiratory Syncytial Virus B Not Detected (NOT DETECT); SARS-COV-2 Not Detected (NOT DETECT)
[2023-10-31] MEDS: doxycycline 100 mg Tablet PO (19:31)
[2023-10-31 19:39] VITALS: BP 111/69; PULSE 59; RESP 16; TEMP 36.8; O2SAT 98
== END 2023-10-31 19:40 | disposition home or self-care (01) ==
PROVIDERS: Emergency Provider Emergency Medicine; PCP Family Medicine
DX: J18.9 Pneumonia, unspecified organism (principal); Z11.52 Encounter for screening for COVID-19; F17.210 Nicotine dependence, cigarettes, uncomplicated; F17.290 Nicotine dependence, other tobacco product, uncomplicated; E11.40 Type 2 diabetes mellitus with diabetic neuropathy, unspecified; I50.9 Heart failure, unspecified
CPT/HCPCS: 36415; 71045; 80053; 83880; 85025; 87040; 87426; 87635; 93005; 99285

== ENCOUNTER 2023-11-04 10:12 | Emergency (ER) | payer MEDICARE, MEDICAID, SELFPAY ==
[2023-06-26 14:03] VITALS: BP 147/78; BMI 37.0
[2023-11-04 10:14] VITALS: BP 108/77; PULSE 65; TEMP 37; O2SAT 99; BMI 29.2
--- NOTE | 2023-11-04 10:17 | XRR_ITS ---
PROCEDURE INFORMATION: Exam: XR Chest Exam date and time: 11/04/2023 10:22 AM Age: 58 years old Clinical indication: Dyspnea; Additional info: Weakness TECHNIQUE: Imaging protocol: Radiologic exam of the chest. Views: 1 view. COMPARISON: CR XR chest 1V portable [id number] 10/31/2023 2:53 PM FINDINGS: Lungs: Unremarkable. No consolidation. Pleural spaces: Unremarkable. No pleural effusion. No pneumothorax. Heart/Mediastinum: Unremarkable. No cardiomegaly. Bones/joints: Metallic surgical plate and screws are seen in the cervical spine. XR/XR chest 1V portable [id number] IMPRESSION: 1. No acute findings. 2. Postoperative hardware cervical spine
--- NOTE | 2023-11-04 10:22 | W.ED.WEAKNES ---
HPI - Weakness General: Chief complaint: Weakness Stated complaint: not feeling well Time Seen by Provider: 11/04/23 10:13 History of Present Illness: 58-year-old female with a history of alcohol abuse, PTSD, depression, tobacco dependence, diabetes, CHF and chronic pain syndrome who presents to the emergency room by ambulance from a recovery center with complaint of feeling dizzy and not feeling well. Nothing more specific to this. No chest pain. No cough. She think she might had a fever earlier. No abdominal pain. No nausea or vomiting. Review of Systems Narrative: Constitutional symptoms: Negative except as documented in HPI. Skin symptoms: Negative except as documented in HPI. Eye symptoms: Negative except as documented in HPI. ENMT symptoms: Negative except as documented in HPI. Respiratory symptoms: Negative except as documented in HPI. Cardiovascular symptoms: Negative except as documented in HPI. Gastrointestinal symptoms: Negative except as documented in HPI. Genitourinary symptoms: Negative except as documented in HPI. Musculoskeletal symptoms: Negative except as documented in HPI. Neurologic symptoms: Negative except as documented in HPI. Psychiatric symptoms: Negative except as documented in HPI. Endocrine symptoms: Negative except as documented in HPI. PFSH ED PFSH: Medical History PTSD (post-traumatic stress disorder) Suicidal ideation Cannabis dependence, episodic use last use 03/26/23 Major depressive disorder, recurrent, severe with psychotic symptoms Nicotine dependence due to vaping tobacco product Vaping nicotine Chronic post-traumatic stress disorder Alcohol use disorder, severe, dependence last use 03/26/23 Psychiatric care Uncontrolled type 2 diabetes with neuropathy Sacroiliitis H/O Belkys-Valenzuela syndrome (~07/2019) EGD at [facility]. EGD 10/26 negative. Chronic back pain Congestive heart failure Diabetes mellitus MONTANO (nonalcoholic steatohepatitis) Borderline personality disorder Bilateral primary osteoarthritis of hip Surgical History History of hysterectomy History of esophagogastroduodenoscopy H/O colonoscopy H/O cervical spine surgery Family History Son Suicide September 2019 Other Cancer Hypertension Psychiatric illness Social History Smoking and tobacco/nicotine status: current every day tobacco/nicotine user cigarettes [ Other cigarette details: When vape breaks she returns to cigarettes] and e-cigarettes E-Cigarette Details: vaporizer device and with nicotine E-cig/vape details: 6000 puffs in each device, uses 3 per month Quit status (tobacco/nicotine): not considering quitting Second hand smoke exposure: Yes Alcohol intake: current Alcohol intake frequency: few times a month Alcohol type: hard liquor Substance/Drug Use: current Substance/Drug use frequency: daily Other substance/drug use details: medical card Adopted: No Caregiver/support person: Yes (cleans and runs errands) Lives independently: Yes Household members: none Housing: Apartment Marital status: Single Number of children: 2 Number of grandchildren: 0 Highest education level completed: Associate Degree: Occupational, Technical, Vocational Program Education level details: [facility] [employer] service: No Current occupational status: disabled Current occupational exposures/hazards: No Pets and animals: Yes Pets & animals: cat(s) Leisure activites: music, games and other Leisure activities details: watch a lot of movies Sexually active: No Do you think of yourself as: Straight/Heterosexual Current gender identity: Female Aparna/Hindu: Advent Special aparna needs: No Agree to transfusion: Yes Female Reproductive History: Para: 2 Spontaneous abortions: Yes (10) Physical Exam Narrative: EXAM NARRATIVE: General: Alert, no acute distress. Skin: Warm, dry. Head: Normocephalic, atraumatic. Neck: Supple, trachea midline. Eye: Extraocular movements are intact. Ears, nose, mouth and throat: mucosa moist. Cardiovascular: Regular, Normal peripheral perfusion. Respiratory: Lungs are clear to auscultation, respirations are non-labored, breath sounds are equal, Symmetrical chest wall expansion. Gastrointestinal: Soft, Nontender, Non distended Musculoskeletal: Normal ROM, no deformity. Neurological: Alert and oriented, No focal neurological deficit observed. Psychiatric: Cooperative, appropriate mood & affect. Course Vital Signs: Vital signs: Vital Signs Temperature 98.6 F 11/04/23 10:14 Pulse Rate 62 11/04/23 12:22 Blood Pressure 112/63 11/04/23 12:22 Pulse Oximetry 97 11/04/23 12:22 Oxygen Delivery Me thod Room Air 11/04/23 10:14 MDM - Weakness Medical Decision Making Medical decision making: Differential diagnosis for patient presenting with generalized weakness including but not limited to and based on the above HPI, review of systems and physical exam: Sepsis. Dehydration. Renal failure. Electrolyte abnormalities. Anemia. Congestive heart failure. Hypotension. Coronary syndrome. Hepatitis. Cirrhosis. Infections such as pneumonia, urinary tract infection, [place] bourne illness, Cellulitis, Viral infections including influenza and Covid-19. Workup: labwork and lab/exam driven imaging ordered to evaluate, rule in and rule out above pathologies. Lab Review: Laboratory results were reviewed and interpreted by myself the emergency room physician. Lab work is unremarkable. No urinary tract infection. No electrolyte abnormalities. No renal failure. No leukocytosis. I reviewed the patient's medical record. Reexamination: Patient remained stable. No increased work of breathing. No altered mental status. No focal motor deficits. Assessment and plan: Weakness and dizziness - Discharged home - Discussed plan with patient. Answered any questions. - Evaluation and treatment of this problem were appropriate in the emergency setting. Lab Data 11/04/23 10:49 11/04/23 10:49 Radiology Impressions Chest X-Ray 11/04/23 10:17 IMPRESSION: 1. No acute findings. 2. Postoperative hardware cervical spine Laboratory Results WBC 4.19 10^3/uL (3.29-11.43) 11/04/23 10:49 RBC 3.58 10^6/uL (3.85-5.65) L 11/04/23 10:49 Hgb 11.60 g/dL (11.27-16.99) 11/04/23 10:49 Hct 35.2 % (36-47) L 11/04/23 10:49 MCV 98.3 fl (85-98) H 11/04/23 10:49 MCH 32.4 pg (27-33) 11/04/23 10:49 MCHC 33.0 g/dL (30-55) 11/04/23 10:49 RDW 14.0 % (12.1-15.1) 11/04/23 10:49 Plt Count 87 10^3/cmm (157-399) L 11/04/23 10:49 MPV 10.6 fL (7.4-10.4) H 11/04/23 10:49 Neut % (Auto) 75.1 % 11/04/23 10:49 Lymph % (Auto) 15.3 % 11/04/23 10:49 [place] % (Auto) 6.0 % 11/04/23 10:49 Eos % (Auto) 2.4 % 11/04/23 10:49 Baso % (Auto) 0.7 % 11/04/23 10:49 Neut # (Auto) 3.15 10^3/uL (1.8-7.7) 11/04/23 10:49 Lymph # (Auto) 0.6 10^3/uL (0.8-4.8) L 11/04/23 10:49 [place] # (Auto) 0.3 10^3/uL (0.2-0.9) 11/04/23 10:49 Eos # (Auto) 0.1 10^3/uL (0.0-0.8) 11/04/23 10:49 Baso # (Auto) 0.0 10^3/uL (0.0-0.1) 11/04/23 10:49 Nucleated RBC % (auto) 0 % 11/04/23 10:49 Nucleated RBCs # 0.0 /100WBC 11/04/23 10:49 Sodium 141 mmol/L (136-145) 11/04/23 10:49 Potassium 3.8 mmol/L (3.5-5.1) 11/04/23 10:49 Chloride 109 mmol/L (98-107) H 11/04/23 10:49 Carbon Dioxide 23 mmol/L (22-29) 11/04/23 10:49 Anion Gap 12.8 (5-19) 11/04/23 10:49 BUN 8 mg/dL (6-20) 11/04/23 10:49 Creatinine 0.7 mg/dL (0.5-0.9) 11/04/23 10:49 GFR Calculation 86.6 mL/min (90-130) L 11/04/23 10:49 Glucose 103 mg/dL (65-115) 11/04/23 10:49 Calculated Osmolality 291 mOsm/kg (285-295) 11/04/23 10:49 Lactic Acid 1.1 mmol/L (0.5-2.2) 11/04/23 10:49 Calcium 8.6 mg/dL (8.5-10.5) 11/04/23 10:49 Total Bilirubin 1.7 mg/dL (0.15-1.2) H 11/04/23 10:49 AST 50 U/L (0-32) H 11/04/23 10:49 ALT 29 U/L (0-33) 11/04/23 10:49 Alkaline Phosphatase 183 U/L (35-105) H 11/04/23 10:49 C-Reactive Protein 5.5 mg/L (0.0-4.9) H 11/04/23 10:49 Total Protein 6.1 g/dL (6.6-8.7) L 11/04/23 10:49 Albumin 3.1 g/dL (3.5-5.2) L 11/04/23 10:49 Globulin 3.0 g/dL (1.3-4.6) 11/04/23 10:49 Urine Color Yellow (Yellow) 11/04/23 13:13 Urine Appearance Clear (CLEAR) 11/04/23 13:13 Urine pH 5 (5-7) 11/04/23 13:13 Ur Specific [place] 1.015 (1.005-1.030) 11/04/23 13:13 Urine Protein Neg (Negative) 11/04/23 13:13 Urine Glucose (UA) Norm (Normal) 11/04/23 13:13 Urine Ketones Negative (Negative) 11/04/23 13:13 Urine Blood Neg (Negative) 11/04/23 13:13 Urine Nitrate Negative (Negative) 11/04/23 13:13 Urine Bilirubin Neg (Negative) 11/04/23 13:13 Urine Urobilinogen 1 mg/dL (Negative) H 11/04/23 13:13 Ur Leukocyte Esterase Negative (Negative) 11/04/23 13:13 Urine RBC None /hpf (0-2) 11/04/23 13:13 Urine WBC None /hpf (0-5) 11/04/23 13:13 Ur Squamous Epith Cells 0-4 /hpf (0-5) H 11/04/23 13:13 Amorphous Sediment Not Reportable 11/04/23 13:13 Urine Bacteria Trace /hpf (NONE) 11/04/23 13:13 Ethyl Alcohol < 10 mg/dL (0-10) 11/04/23 10:49 All radiology interpretation(s) finalized by discharge Discharge Plan Discharge Patient Disposition: Home Clinical Impression: Weakness Condition: Stable Prescriptions: No Action (DME) [place] AFO to the left See Rx Instructions .Route .MEDSUPPLY Qty: 1 0RF Rx Instructions: As directed hydrocodone-acetaminophen 10-325 mg tablet 1 tab PO Q6H PRN (Reason: pain) 5 Days Qty: 20 0RF (DME) Fast Form Ulnar Gutter See Rx Instructions .Route .MEDSUPPLY Qty: 1 0RF Rx Instructions: As directed (DME) CORRECTIONAL SUBSTANCE ABUSE COUNSELOR free custom volar fast form See Rx Instructions .Route .MEDSUPPLY Qty: 1 0RF Rx Instructions: As directed albuterol sulfate 90 mcg/actuation HFA aerosol inhaler 1 inh inhalation QID PRN (Reason: shortness of breath or wheezing) Qty: 8.5 0RF budesonide-formoterol [Symbicort] 160-4.5 mcg/actuation HFA aerosol inhaler 1 puff inhalation BID Qty: 10.2 1RF isosorbide mononitrate 30 mg tablet extended release 24 hr 30 mg PO DAILY doxycycline hyclate 100 mg tablet 100 mg PO BID 7 Days Qty: 14 0RF trazodone 100 mg Tablet 100 mg PO BEDTIME 30 Days Qty: 30 1RF Rx Instructions: ALONG WITH 300MG TO =400MG AT BEDTIME trazodone 150 mg Tablet 300 mg PO BEDTIME 60 Days Qty: 60 1RF Rx Instructions: ALONG WITH 100MG [id number] AT BEDTIME folic acid 1 mg Tablet 1 mg PO DAILY 30 Days Qty: 30 1RF sertraline [Zoloft] 100 mg tablet 100 mg PO DAILY Qty: 30 1RF gabapentin 400 mg capsule See Rx Instructions .ROUTE .COMPLEX Rx Instructions: NEEDED TAKE ONE CAPSULE BY MOUTH FOUR TIMES DAILY x2 DAYS, THREE TIMES DAILY FOR x2 DAYS, TWICE DAILY x2 DAYS, Every night AT BEDTIME x2 DAYS. STOP baclofen 10 mg tablet 10 mg PO TID PRN (Reason: MUSCLE SPASMS) mupirocin 2 % ointment 1 applic TOPICAL PRN PRN (Reason: Skin Irritation) propranolol 20 mg tablet 20 mg PO TID PRN (Reason: UNKNOWN) hydroxyzine pamoate 25 mg capsule 25 mg PO TID PRN (Reason: UNKNOWN) topiramate 50 mg tablet 50 mg PO BEDTIME quetiapine 50 mg tablet 50 mg PO BEDTIME Discharge Orders: Discharge ED (Routine); Ordered 11/04/23 Ordered By: Mary Hendrickson Referrals: Tam Del Valle MD [Primary Care Provider] - Discharge Diet: Usual diet Discharge Activity: Increase activity as tolerated Patient Instructions: Weakness (Generalized) Activity Restrictions/Additional Instructions: Thank you for choosing [facility] for your healthcare needs today. Please realize this is an emergency room and that we are providing you with a medical screening exam and this may not be complete and all inclusive of all the testing and or work up that you may need to determine your ailment or severity of your illness. You have been screened and evaluated and felt safe for discharge. Health conditions do change or evolve sometimes and as such it is important that you follow up with your Primary Doctor to be re checked, 3-5 days is a general good time frame for follow up. You are always welcome to return to the ED for re assessment if your symptoms are worsening or you have new concerns Coding Level of Care Code ED Machine Learning Intern for Rober Arellano
[2023-11-04 10:52] VITALS: BP 125/91; PULSE 63; O2SAT 100
[2023-11-04 11:10] LABS: Basophils % 0.7 %; Eosinophils # 0.1 10^3/uL (0.0-0.8); Eosinophils % 2.4 %; Hematocrit 35.2 % (36-47); Lymphocytes # 0.6 10^3/uL (0.8-4.8); Lymphocytes % 15.3 %; Mean Corpuscular Hemoglobin 32.4 pg (27-33); Mean Corpuscular Volume 98.3 fl (85-98); Mean Platelet Volume 10.6 fL (7.4-10.4); Monocytes # 0.3 10^3/uL (0.2-0.9); Neutrophils # 3.15 10^3/uL (1.8-7.7); Neutrophils % 75.1 %; Nucleated Red Blood Cells % 0 %; Platelet Count 87 10^3/cmm (157-399); Red Blood Count 3.58 10^6/uL (3.85-5.65); White Blood Count 4.19 10^3/uL (3.29-11.43)
[2023-11-04 11:22] VITALS: BP 112/64; PULSE 62; O2SAT 97
[2023-11-04 11:24] LABS: Lactic Sepsis W/Reflex 1.1 mmol/L (0.5-2.2)
[2023-11-04 11:40] LABS: Alanine Aminotransferase 29 U/L (0-33); Albumin Level 3.1 g/dL (3.5-5.2); Alkaline Phosphatase 183 U/L (35-105); Anion Gap 12.8 (5-19); Aspartate Amino Transferase 50 U/L (0-32); Blood Urea Nitrogen 8 mg/dL (6-20); C Reactive Protein 5.5 mg/L (0.0-4.9); Calcium 8.6 mg/dL (8.5-10.5); Carbon Dioxide 23 mmol/L (22-29); Chloride 109 mmol/L (98-107); Creatinine Clr Calc Pharmacy 93.1756; Glomerular Filtration Rate 86.6 mL/min (90-130); Glucose 103 mg/dL (65-115); Osmolality Calculated 291 mOsm/kg (285-295); Potassium 3.8 mmol/L (3.5-5.1); Sodium 141 mmol/L (136-145); Total Bilirubin 1.7 mg/dL (0.15-1.2); Total Protein 6.1 g/dL (6.6-8.7)
[2023-11-04 11:41] LABS: Alcohol Level < 10 mg/dL (0-10)
[2023-11-04 11:52] VITALS: BP 124/74; PULSE 65; O2SAT 97
[2023-11-04 12:22] VITALS: BP 112/63; PULSE 62; O2SAT 97
[2023-11-04 14:36] LABS: Add Urine Culture? No; Bacteria Urine TRACE /hpf; Bilirubin Urine Neg (Negative); Blood Urine Neg (Negative); Glucose Urine UA Norm (Normal); Ketones Urine Negative (Negative); Leukocyte Esterase Urine Negative (Negative); Nitrate Urine Negative (Negative); Protein Urine Neg (Negative); Specific Gravity, Urine 1.015 (1.005-1.030); Squamous Epithelial Cell Urine 0-4 /hpf (0-5); Urine Appearance Clear (CLEAR); Urine Color Yellow (Yellow); Urobilinogen Urine 1 mg/dL (Negative); pH Urine 5 (5-7)
== END 2023-11-04 15:22 | disposition home or self-care (01) ==
PROVIDERS: Emergency Provider Emergency Medicine; PCP Family Medicine
DX: R53.1 Weakness (principal); F17.210 Nicotine dependence, cigarettes, uncomplicated; F17.290 Nicotine dependence, other tobacco product, uncomplicated; E11.40 Type 2 diabetes mellitus with diabetic neuropathy, unspecified; I50.9 Heart failure, unspecified
CPT/HCPCS: 71045; 80053; 80307; 81001; 83605; 85025; 86140; 87040; 99284

== ENCOUNTER 2023-12-20 20:30 | Inpatient (IN) | payer MEDICARE, SELFPAY ==
[2023-06-26 14:03] VITALS: BP 147/78; BMI 37.0
[2023-12-20 20:35] VITALS: BP 130/98; PULSE 82; RESP 20; TEMP 36.6; O2SAT 98; BMI 31.8
[2023-12-20 20:49] VITALS: BP 142/71; PULSE 78; RESP 16; O2SAT 98
--- NOTE | 2023-12-20 20:56 | PC.NURSE ---
96 Hour Involuntary Hold Patient Rights have been read to the patient and a copy of the same has been given to her. Cupola Patcher Helper Shelia Young was present at bedside at the time of presentation of Rights.
[2023-12-20 21:01] LABS: Basophils % 0.8 %; Eosinophils # 0.2 10^3/uL (0.0-0.8); Hematocrit 32.7 % (36-47); Lymphocytes # 1.4 10^3/uL (0.8-4.8); Lymphocytes % 28.7 %; Mean Corpuscular HGB Conc 33.3 g/dL (30-55); Mean Corpuscular Hemoglobin 32.2 pg (27-33); Mean Corpuscular Volume 96.7 fl (85-98); Mean Platelet Volume 9.8 fL (7.4-10.4); Monocytes # 0.3 10^3/uL (0.2-0.9); Monocytes % 5.4 %; Neutrophils # 3.04 10^3/uL (1.8-7.7); Neutrophils % 60.7 %; Nucleated Red Blood Cells % 0 %; Platelet Count 107 10^3/cmm (157-399); Red Blood Count 3.38 10^6/uL (3.85-5.65); Red Cell Distribution Width 15.1 % (12.1-15.1); White Blood Count 5.01 10^3/uL (3.29-11.43)
--- NOTE | 2023-12-20 21:03 | ECG_ITS ---
[facility] Test Date: 2023-12-20 Pat Name: Kay Calles Department: Room: Gender: Female Cloth Handler: : [id number] Requested By: Mary Manning Order Number: [id number] Parker MD: Tom Ford M.D. Measurements Intervals [place] Rate: 75 P: 71 TN: 142 QRS: 48 QRSD: 82 T: 61 QT: 402 QTc: 449 Interpretive Statements SINUS RHYTHM MINIMAL ST DEPRESSION [0.025+ mV ST DEPRESSION] Compared to ECG 10/31/2023 15:03:23 ST (T wave) deviation now present Electronically Signed On 12-21-2023 16:45:29 CDT by Tom Ford M.D. [email or web address] [id number]
[2023-12-20 21:12] VITALS: BP 136/83; PULSE 89; RESP 16; O2SAT 98
--- NOTE | 2023-12-20 21:15 | W.ED.PSYCHS ---
Documented by User: Mary Hendrickson MD 12/21/23 05:19 HPI - Psych General: Chief Complaint: Psychiatric Symptoms Stated Complaint: 96 HOUR HOLD Time Seen by Provider: 12/20/23 20:31 History of Present Illness: 58-year-old female with a history of alcohol abuse, depression and previous admissions for suicidal ideation who presents to the emergency room on a 96-hour hold with police. 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 Per 1 affidavit she wanted to go to sleep and not wake up and would rather not be here anymore. She stated plan of using medication that she has access to. She also stated that she was forced to go the hospital she would find a way to kill herself. She is concerned about being evicted due to upcoming inspection and is only focused on providing for home with boyfriend. . There is an affidavit from another person stating basically the same thing. On arrival here she is extremely agitated and yelling. Unable to obtain any other history at this point. Related Data Home Medications Medication Instructions Recorded Confirmed baclofen 10 mg tablet 10 mg PO TID PRN Pain 12/21/23 12/21/23 fluoxetine 20 mg capsule 20 mg PO DAILY 12/21/23 12/21/23 gabapentin 400 mg capsule See Rx Instructions .Route .COMPLEX 12/21/23 12/21/23 ondansetron HCl 8 mg tablet 8 mg PO TID PRN Nausea 12/21/23 12/21/23 topiramate 100 mg tablet 100 mg PO DAILY 12/21/23 12/21/23 trazodone 100 mg tablet 100 - 200 mg PO BEDTIME 12/21/23 12/21/23 Previous Rx's Medication Instructions Recorded albuterol sulfate 90 mcg/actuation 1 inh inhalation QID PRN shortness 07/19/23 aerosol inhaler of breath or wheezing #8.5 grams budesonide-formoterol HFA 160 1 puff inhalation BID #10.2 grams 07/26/23 mcg-4.5 mcg/actuation aerosol inhaler (Symbicort) folic acid 1 mg tablet 1 mg PO DAILY 30 days #30 tabs 10/10/23 buspirone 7.5 mg tablet 7.5 mg PO BID 2 weeks #28 tabs 11/21/23 Allergies Allergy/AdvReac Type Severity Reaction Status Date / Time venom-wasp Allergy Severe ALGY-Anaphy Verified 12/20/23 17:21 laxis Sulfa (Sulfonamide Allergy Intermediate Hives Verified 12/20/23 17:21 Antibiotics) aspirin Allergy Unknown Unknown Verified 12/20/23 17:21 Cephalosporins Allergy Unknown Unknown Verified 12/20/23 17:21 NSAIDS (Non-Steroidal Allergy Unknown Unknown Verified 12/20/23 17:21 Anti-Inflamma sumatriptan [From Imitrex] Allergy Unknown Unknown Verified 12/20/23 17:21 acetaminophen [From Tylenol] Allergy Unknown Verified 12/20/23 17:21 ibuprofen Allergy UNKNOWN Verified 12/20/23 17:21 [From NeoProfen (ibuprofen lysn)(PF)] metoclopramide [From Reglan] Allergy ALGY-Joint Verified 12/20/23 17:21 Pain bupropion [From Wellbutrin] AdvReac Intermediate ALGY-Rash Verified 12/20/23 17:21 prednisone AdvReac Intermediate Heart rate Verified 12/20/23 17:21 was heavy. [place] sick. Review of Systems General: Reports: ROS unobtainable due to medical condition and ROS unobtainable due to mental status PFS ED PFSH: Medical History PTSD (post-traumatic stress disorder) Suicidal ideation Cannabis dependence, episodic use Major depressive disorder, recurrent, severe with psychotic symptoms Nicotine dependence due to vaping tobacco product Vaping nicotine Chronic post-traumatic stress disorder Alcohol use disorder, severe, dependence Psychiatric care Uncontrolled type 2 diabetes with neuropathy Sacroiliitis H/O Belkys-Valenzuela syndrome (~07/2019) EGD at [facility]. EGD 10/26 negative. Chronic back pain Congestive heart failure Diabetes mellitus MONTANO (nonalcoholic steatohepatitis) Borderline personality disorder Bilateral primary osteoarthritis of hip Surgical History History of hysterectomy History of esophagogastroduodenoscopy H/O colonoscopy H/O cervical spine surgery Family History Son Suicide September 2019 Other Cancer Hypertension Psychiatric illness Social History Smoking and tobacco/nicotine status: current every day tobacco/nicotine user cigarettes [ Other cigarette details: When vape breaks she returns to cigarettes] and e-cigarettes E-Cigarette Details: vaporizer device and with nicotine E-cig/vape details: 6000 puffs in each device, uses 3 per month Quit status (tobacco/nicotine): not considering quitting Second hand smoke exposure: Yes Alcohol intake: current Alcohol intake frequency: few times a month Alcohol type: hard liquor Substance/Drug Use: current Substance/Drug use frequency: daily Other substance/drug use details: medical card Adopted: No Caregiver/support person: Yes (cleans and runs errands) Lives independently: Yes Household members: none Housing: Apartment Marital status: Single Number of children: 2 Number of grandchildren: 0 Highest education level completed: Associate Degree: Occupational, Technical, Vocational Program Education level details: [employer] service: No Current occupational status: disabled Current occupational exposures/hazards: No Pets and animals: Yes Pets & animals: cat(s) Leisure activites: music, games and other Leisure activities details: watch a lot of movies Sexually active: No Do you think of yourself as: Straight/Heterosexual Current gender identity: Female Aparna/Hinduism: Caodaism Special aparna needs: No Agree to transfusion: Yes Female Reproductive History: Para: 2 Spontaneous abortions: Yes (10) Physical Exam Narrative: EXAM NARRATIVE: General: Alert, Skin: Warm, dry. Head: Normocephalic, atraumatic. Neck: Supple, trachea midline. Eye: Extraocular movements are intact. Ears, nose, mouth and throat: mucosa moist. Cardiovascular: Regular, Normal peripheral perfusion. Respiratory: Lungs are clear to auscultation, respirations are non-labored, breath sounds are equal, Symmetrical chest wall expansion. Gastrointestinal: Soft, Nontender, Non distended Musculoskeletal: Normal ROM, no deformity. Neurological: Alert , No focal neurological deficit observed. Psychiatric: Patient is extremely agitated and appears intoxicated. She is yelling at staff Course Vital Signs: Vital signs: Vital Signs Temperature 97.8 F 12/21/23 14:00 Pulse Rate 82 12/21/23 14:00 Respiratory Rate 18 12/21/23 14:00 Blood Pressure 155/85 12/21/23 14:00 Pulse Oximetry 100 12/21/23 14:00 Oxygen Delivery Me thod Room Air 12/21/23 12:13 [facility] - Psych Medical Decision Making Differential diagnosis: Patient with reported depression and suicidal ideation. concerns for infection, alcohol intoxication, cardiac issues or other medical problems prior to psychiatric admission. Workup: labwork, ekg ordered to evaluate the pathologies and to clear the patient medically prior to psychiatric admission EKG: Time 2102. Rate 75. Normal sinus rhythm, No ST-T changes, no ectopy, normal OH & QRS intervals, This was reviewed and interpreted by myself the ER physician at 2105 Lab Review: Laboratory results were reviewed and interpreted by myself the emergency room physician. Lab review: - Medically cleared. - EKG shows no ischemic changes. - Blood alcohol level is 226. -Tylenol and salicylate levels are negative. - Drug screen is negative -Patient has a fairly dirty [place] urine collection but she does have 4+ bacteria and 6-10 whites so starting her on some Cipro. - No anemia. - BUN and creatinine are within normal limits. Assessment and plan: Alcohol intoxication Suicidal ideation ?96-hour hold was placed. ? Initially required restraints, IM Ativan and IM Geodon. She has since calmed down and is now sleeping. -Admission to neuropsychiatric unit for continued evaluation and treatment. - All lab work was reviewed and interpreted personally by myself, the ER physician - Evaluation and treatment of this problem were appropriate in the emergency setting Currently waiting to hear from psychiatry. If she cannot be admitted here she will need to be transferred. Patient care transitioned to Dr. Holland at shift change Lab Data 12/20/23 20:55 12/20/23 20:55 Laboratory Results WBC 5.01 10^3/uL (3.29-11.43) 12/20/23 20:55 RBC 3.38 10^6/uL (3.85-5.65) L 12/20/23 20:55 Hgb 10.90 g/dL (11.27-16.99) L 12/20/23 20:55 Hct 32.7 % (36-47) L 12/20/23 20:55 MCV 96.7 fl (85-98) 12/20/23 20:55 MCH 32.2 pg (27-33) 12/20/23 20:55 MCHC 33.3 g/dL (30-55) 12/20/23 20:55 RDW 15.1 % (12.1-15.1) 12/20/23 20:55 Plt Count 107 10^3/cmm (157-399) L 12/20/23 20:55 MPV 9.8 fL (7.4-10.4) 12/20/23 20:55 Neut % (Auto) 60.7 % 12/20/23 20:55 Lymph % (Auto) 28.7 % 12/20/23 20:55 [place] % (Auto) 5.4 % 12/20/23 20:55 Eos % (Auto) 4.0 % 12/20/23 20:55 Baso % (Auto) 0.8 % 12/20/23 20:55 Neut # (Auto) 3.04 10^3/uL (1.8-7.7) 12/20/23 20:55 Lymph # (Auto) 1.4 10^3/uL (0.8-4.8) 12/20/23 20:55 [place] # (Auto) 0.3 10^3/uL (0.2-0.9) 12/20/23 20:55 Eos # (Auto) 0.2 10^3/uL (0.0-0.8) 12/20/23 20:55 Baso # (Auto) 0.0 10^3/uL (0.0-0.1) 12/20/23 20:55 Nucleated RBC % (auto) 0 % 12/20/23 20:55 Nucleated RBCs # 0.0 /100WBC 12/20/23 20:55 Sodium 149 mmol/L (136-145) H 12/20/23 20:55 Potassium 3.6 mmol/L (3.5-5.1) 12/20/23 20:55 Chloride 116 mmol/L (98-107) H 12/20/23 20:55 Carbon Dioxide 22 mmol/L (22-29) 12/20/23 20:55 Anion Gap 14.6 (5-19) 12/20/23 20:55 BUN 5 mg/dL (6-20) L 12/20/23 20:55 Creatinine 0.4 mg/dL (0.5-0.9) L 12/20/23 20:55 GFR Calculation 165.1 mL/min (90-130) H 12/20/23 20:55 Glucose 116 mg/dL (65-115) H 12/20/23 20:55 Calculated Osmolality 306 mOsm/kg (285-295) H 12/20/23 20:55 Calcium 7.8 mg/dL (8.5-10.5) L 12/20/23 20:55 Total Bilirubin 2.2 mg/dL (0.15-1.2) H 12/20/23 20:55 AST 69 U/L (0-32) H 12/20/23 20:55 ALT 29 U/L (0-33) 12/20/23 20:55 Alkaline Phosphatase 174 U/L (35-105) H 12/20/23 20:55 Total Protein 5.7 g/dL (6.6-8.7) L 12/20/23 20: Albumin 3.0 g/dL (3.5-5.2) L 12/20/23 20:55 Globulin 2.7 g/dL (1.3-4.6) 12/20/23 20: TSH 1.12 uIU/mL (0.27-4.20) 12/20/23 20:55 Urine Color Dark yellow (Yellow) A 12/20/23 21:03 Urine Appearance Turbid (CLEAR) A 12/20/23 21:03 Urine pH 6.5 (5-7) 12/20/23 21:03 Ur Specific [place] 1.020 (1.005-1.030) 12/20/23 21:03 Urine Protein 1+ (Negative) A 12/20/23 21: Urine Glucose (UA) Negative (Normal) 12/20/23 21: Urine Ketones Negative (Negative) 12/20/23 21: Urine Blood Negative (Negative) 12/20/23 21:03 Urine Nitrate Negative (Negative) 12/20/23 21:03 Urine Bilirubin 1+ (Negative) H 12/20/23 21:03 Urine Urobilinogen 4.0 mg/dL (Negative) H 12/20/23 21:03 Ur Leukocyte Esterase Trace (Negative) A 12/20/23 21:03 Urine RBC 0-2 /hpf (0-2) 12/20/23 21:03 Urine WBC 6-10 /hpf (0-5) 12/20/23 21:03 Ur Squamous Epith Cells 21-50 /hpf (0-5) 12/20/23 21:03 Amorphous Sediment Not Reportable 12/20/23 21:03 Urine Bacteria 4+ /hpf (NONE) H 12/20/23 21:03 Hyaline Casts 5.36 /lpf 12/20/23 21:03 Salicylates < 0.3 mg/dL (3-10) L 12/20/23 20:55 Urine Opiates Screen Negative ng/mL (Negative) 12/20/23 21:03 Acetaminophen < 5.0 ug/mL (10-30) L 12/20/23 20:55 Ur Barbiturates Screen Negative ng/mL (Negative) 12/20/23 21:03 Ur Phencyclidine Scrn Negative ng/mL (Negative) 12/20/23 21:03 Ur Amphetamines Screen Negative ng/mL (Negative) 12/20/23 21:03 U Benzodiazepines Scrn Negative ng/mL (Negative) 12/20/23 21:03 Urine Cocaine Screen Negative ng/mL (Negative) 12/20/23 21:03 U Marijuana (THC) Screen Positive ng/mL (Negative) H 12/20/23 21:03 Ethyl Alcohol 146 mg/dL (0-10) H 12/21/23 03:06 Discharge Plan Discharge Patient Disposition: Admitted As Inpatient Admit Provider: Marcell Archibald Clinical Impression: Suicidal ideation, Alcohol intoxication, Agitation Condition: Stable Sign Out Sign Out Data: Patient Sign Out occurred on 12/21/23 at 06:43. Patient's care was discussed, and care was transferred from Mary Hendrickson MD to Gee Huertas DO. Coding Level of Care Code ED Authorization Manager for Chg Fwd Documented by User: Gee Huertas DO 12/21/23 15:45 HPI - Psych General: Chief Complaint: Psychiatric Symptoms Stated Complaint: 96 HOUR HOLD Time Seen by Provider: 12/20/23 20:31 Related Data Home Medications Medication Instructions Recorded Confirmed baclofen 10 mg tablet 10 mg PO TID PRN Pain 12/21/23 12/21/23 fluoxetine 20 mg capsule 20 mg PO DAILY 12/21/23 12/21/23 gabapentin 400 mg capsule See Rx Instructions .Route .COMPLEX 12/21/23 12/21/23 ondansetron HCl 8 mg tablet 8 mg PO TID PRN Nausea 12/21/23 12/21/23 topiramate 100 mg tablet 100 mg PO DAILY 12/21/23 12/21/23 trazodone 100 mg tablet 100 - 200 mg PO BEDTIME 12/21/23 12/21/23 Previous Rx's Medication Instructions Recorded albuterol sulfate 90 mcg/actuation 1 inh inhalation QID PRN shortness 07/19/23 aerosol inhaler of breath or wheezing #8.5 grams budesonide-formoterol HFA 160 1 puff inhalation BID #10.2 grams 07/26/23 mcg-4.5 mcg/actuation aerosol inhaler (Symbicort) folic acid 1 mg tablet 1 mg PO DAILY 30 days #30 tabs 10/10/23 buspirone 7.5 mg tablet 7.5 mg PO BID 2 weeks #28 tabs 11/21/23 Allergies Allergy/AdvReac Type Severity Reaction Status Date / Time venom-wasp Allergy Severe ALGY-Anaphy Verified 12/20/23 17:21 laxis Sulfa (Sulfonamide Allergy Intermediate Hives Verified 12/20/23 17:21 Antibiotics) aspirin Allergy Unknown Unknown Verified 12/20/23 17:21 Cephalosporins Allergy Unknown Unknown Verified 12/20/23 17:21 NSAIDS (Non-Steroidal Allergy Unknown Unknown Verified 12/20/23 17:21 Anti-Inflamma sumatriptan [From Imitrex] Allergy Unknown Unknown Verified 12/20/23 17:21 acetaminophen [From Tylenol] Allergy Unknown Verified 12/20/23 17:21 ibuprofen Allergy UNKNOWN Verified 12/20/23 17:21 [From NeoProfen (ibuprofen lysn)(PF)] metoclopramide [From Reglan] Allergy ALGY-Joint Verified 12/20/23 17:21 Pain bupropion [From Wellbutrin] AdvReac Intermediate ALGY-Rash Verified 12/20/23 17:21 prednisone AdvReac Intermediate Heart rate Verified 12/20/23 17:21 was heavy. [place] sick. PFS ED PFSH: Medical History PTSD (post-traumatic stress disorder) Suicidal ideation Cannabis dependence, episodic use Major depressive disorder, recurrent, severe with psychotic symptoms Nicotine dependence due to vaping tobacco product Vaping nicotine Chronic post-traumatic stress disorder Alcohol use disorder, severe, dependence Psychiatric care Uncontrolled type 2 diabetes with neuropathy Sacroiliitis H/O Belkys-Valenzuela syndrome (~07/2019) EGD at [facility]. EGD 10/26 negative. Chronic back pain Congestive heart failure Diabetes mellitus MONTANO (nonalcoholic steatohepatitis) Borderline personality disorder Bilateral primary osteoarthritis of hip Surgical History History of hysterectomy History of esophagogastroduodenoscopy H/O colonoscopy H/O cervical spine surgery Family History Son Suicide September 2019 Other Cancer Hypertension Psychiatric illness Social History Smoking and tobacco/nicotine status: current every day tobacco/nicotine user cigarettes [ Other cigarette details: When vape breaks she returns to cigarettes] and e-cigarettes E-Cigarette Details: vaporizer device and with nicotine E-cig/vape details: 6000 puffs in each device, uses 3 per month Quit status (tobacco/nicotine): not considering quitting Second hand smoke exposure: Yes Alcohol intake: current Alcohol intake frequency: few times a month Alcohol type: hard liquor Substance/Drug Use: current Substance/Drug use frequency: daily Other substance/drug use details: medical card Adopted: No Caregiver/support person: Yes (cleans and runs errands) Lives independently: Yes Household members: none Housing: Apartment Marital status: Single Number of children: 2 Number of grandchildren: 0 Highest education level completed: Associate Degree: Occupational, Technical, Vocational Program Education level details: [employer] service: No Current occupational status: disabled Current occupational exposures/hazards: No Pets and animals: Yes Pets & animals: cat(s) Leisure activites: music, games and other Leisure activities details: watch a lot of movies Sexually active: No Do you think of yourself as: Straight/Heterosexual Current gender identity: Female Aparna/Hinduism: Caodaism Special aparna needs: No Agree to transfusion: Yes Course Vital Signs: Vital signs: Vital Signs Temperature 97.8 F 12/21/23 14:00 Pulse Rate 82 12/21/23 14:00 Respiratory Rate 18 12/21/23 14:00 Blood Pressure 155/85 12/21/23 14:00 Pulse Oximetry 100 12/21/23 14:00 Oxygen Delivery Me thod Room Air 12/21/23 12:13 [facility] - Psych Medical Decision Making Differential diagnosis: Patient with reported depression and suicidal ideation. concerns for infection, alcohol intoxication, cardiac issues or other medical problems prior to psychiatric admission. Workup: labwork, ekg ordered to evaluate the pathologies and to clear the patient medically prior to psychiatric admission EKG: Time 2102. Rate 75. Normal sinus rhythm, No ST-T changes, no ectopy, normal OH & QRS intervals, This was reviewed and interpreted by myself the ER physician at 2104 Lab Review: Laboratory results were reviewed and interpreted by myself the emergency room physician. Lab review: - Medically cleared. - EKG shows no ischemic changes. - Blood alcohol level is 226. -Tylenol and salicylate levels are negative. - Drug screen is negative -Patient has a fairly dirty [place] urine collection but she does have 4+ bacteria and 6-10 whites so starting her on some Cipro. - No anemia. - BUN and creatinine are within normal limits. Assessment and plan: Alcohol intoxication Suicidal ideation ?96-hour hold was placed. ? Initially required restraints, IM Ativan and IM Geodon. She has since calmed down and is now sleeping. -Admission to neuropsychiatric unit for continued evaluation and treatment. - All lab work was reviewed and interpreted personally by myself, the ER physician - Evaluation and treatment of this problem were appropriate in the emergency setting Currently waiting to hear from psychiatry. If she cannot be admitted here she will need to be transferred. Patient care transitioned to Dr. Holland at shift change. Care assumed at change of shift. Discussed Dr. Casillas except patient admitted for suicidal ideation Lab Data 12/20/23 20:55 12/20/23 20:55 Laboratory Results WBC 5.01 10^3/uL (3.29-11.43) 12/20/23 20:55 RBC 3.38 10^6/uL (3.85-5.65) L 12/20/23 20:55 Hgb 10.90 g/dL (11.27-16.99) L 12/20/23 20:55 Hct 32.7 % (36-47) L 12/20/23 20:55 MCV 96.7 fl (85-98) 12/20/23 20:55 MCH 32.2 pg (27-33) 12/20/23 20:55 MCHC 33.3 g/dL (30-55) 12/20/23 20:55 RDW 15.1 % (12.1-15.1) 12/20/23 20:55 Plt Count 107 10^3/cmm (157-399) L 12/20/23 20:55 MPV 9.8 fL (7.4-10.4) 12/20/23 20:55 Neut % (Auto) 60.7 % 12/20/23 20:55 Lymph % (Auto) 28.7 % 12/20/23 20:55 [place] % (Auto) 5.4 % 12/20/23 20:55 Eos % (Auto) 4.0 % 12/20/23 20: Baso % (Auto) 0.8 % 12/20/23 20:55 Neut # (Auto) 3.04 10^3/uL (1.8-7.7) 12/20/23 20:55 Lymph # (Auto) 1.4 10^3/uL (0.8-4.8) 12/20/23 20:55 [place] # (Auto) 0.3 10^3/uL (0.2-0.9) 12/20/23 20:55 Eos # (Auto) 0.2 10^3/uL (0.0-0.8) 12/20/23 20:55 Baso # (Auto) 0.0 10^3/uL (0.0-0.1) 12/20/23 20: Nucleated RBC % (auto) 0 % 12/20/23 20: Nucleated RBCs # 0.0 /100WBC 12/20/23 20:55 Sodium 149 mmol/L (136-145) H 12/20/23 20:55 Potassium 3.6 mmol/L (3.5-5.1) 12/20/23 20:55 Chloride 116 mmol/L (98-107) H 12/20/23 20:55 Carbon Dioxide 22 mmol/L (22-29) 12/20/23 20:55 Anion Gap 14.6 (5-19) 12/20/23 20:55 BUN 5 mg/dL (6-20) L 12/20/23 20:55 Creatinine 0.4 mg/dL (0.5-0.9) L 12/20/23 20:55 GFR Calculation 165.1 mL/min (90-130) H 12/20/23 20:55 Glucose 116 mg/dL (65-115) H 12/20/23 20:55 Calculated Osmolality 306 mOsm/kg (285-295) H 12/20/23 20:55 Calcium 7.8 mg/dL (8.5-10.5) L 12/20/23 20:55 Total Bilirubin 2.2 mg/dL (0.15-1.2) H 12/20/23 20:55 AST 69 U/L (0-32) H 12/20/23 20:55 ALT 29 U/L (0-33) 12/20/23 20:55 Alkaline Phosphatase 174 U/L (35-105) H 12/20/23 20:55 Total Protein 5.7 g/dL (6.6-8.7) L 12/20/23 20:55 Albumin 3.0 g/dL (3.5-5.2) L 12/20/23 20:55 Globulin 2.7 g/dL (1.3-4.6) 12/20/23 20:55 TSH 1.12 uIU/mL (0.27-4.20) 12/20/23 20:55 Urine Color Dark yellow (Yellow) A 12/20/23 21: Urine Appearance Turbid (CLEAR) A 12/20/23 21:03 Urine pH 6.5 (5-7) 12/20/23 21:03 Ur Specific [place] 1.020 (1.005-1.030) 12/20/23 21:03 Urine Protein 1+ (Negative) A 12/20/23 21:03 Urine Glucose (UA) Negative (Normal) 12/20/23 21:03 Urine Ketones Negative (Negative) 12/20/23 21:03 Urine Blood Negative (Negative) 12/20/23 21: Urine Nitrate Negative (Negative) 12/20/23 21: Urine Bilirubin 1+ (Negative) H 12/20/23 21:03 Urine Urobilinogen 4.0 mg/dL (Negative) H 12/20/23 21:03 Ur Leukocyte Esterase Trace (Negative) A 12/20/23 21:03 Urine RBC 0-2 /hpf (0-2) 12/20/23 21:03 Urine WBC 6-10 /hpf (0-5) 12/20/23 21:03 Ur Squamous Epith Cells 21-50 /hpf (0-5) 12/20/23 21:03 Amorphous Sediment Not Reportable 12/20/23 21:03 Urine Bacteria 4+ /hpf (NONE) H 12/20/23 21:03 Hyaline Casts 5.36 /lpf 12/20/23 21:03 Salicylates < 0.3 mg/dL (3-10) L 12/20/23 20:55 Urine Opiates Screen Negative ng/mL (Negative) 12/20/23 21:03 Acetaminophen < 5.0 ug/mL (10-30) L 12/20/23 20:55 Ur Barbiturates Screen Negative ng/mL (Negative) 12/20/23 21:03 Ur Phencyclidine Scrn Negative ng/mL (Negative) 12/20/23 21:03 Ur Amphetamines Screen Negative ng/mL (Negative) 12/20/23 21:03 U Benzodiazepines Scrn Negative ng/mL (Negative) 12/20/23 21:03 Urine Cocaine Screen Negative ng/mL (Negative) 12/20/23 21:03 U Marijuana (THC) Screen Positive ng/mL (Negative) H 12/20/23 21:03 Ethyl Alcohol 146 mg/dL (0-10) H 12/21/23 03:06 No radiology studies performed this visit Discharge Plan Discharge Patient Disposition: Admitted As Inpatient Admit Provider: Marcell Archibald Clinical Impression: Suicidal ideation, Alcohol intoxication, Agitation Condition: Stable Sign Out Sign Out Data: Patient Sign Out occurred on 12/21/23 at 06:43. Patient's care was discussed, and care was transferred from Mary Hendrickson MD to Gee Huertas DO. Coding Level of Care Code ED Authorization Manager for Rboer Arellano
[2023-12-20 21:24] LABS: Amphetamines Screen Urine Negative (Negative); Barbiturates Screen Urine Negative (Negative); Benzodiazepines Screen Urine Negative (Negative); Cocaine Screen Urine Negative (Negative); Opiate Screen Urine Negative (Negative); PCP Screen Urine Negative (Negative); THC Screen Urine Positive (Negative)
[2023-12-20] MEDS: LORazepam 2 mg/mL INJ 1 mL IM (21:25)
[2023-12-20] MEDS: ziprasidone 20 mg/mL SDV IM (21:25)
[2023-12-20 21:28] LABS: Bilirubin Urine 1+ (Negative); Blood Urine Negative (Negative); Glucose Urine UA Negative (Normal); Ketones Urine Negative (Negative); Leukocyte Esterase Urine Trace (Negative); Nitrate Urine Negative (Negative); Protein Urine 1+ (Negative); Urine Appearance Turbid (CLEAR); Urine Color Dark Yellow (Yellow); pH Urine 6.5 (5-7)
[2023-12-20 21:33] LABS: Bacteria Urine 4+ /hpf; Hyaline Casts Urine 5.36 /lpf; RBC Urine 0-2 /hpf (0-2); Squamous Epithelial Cell Urine 21-50 /hpf (0-5)
[2023-12-20 21:37] LABS: Alanine Aminotransferase 29 U/L (0-33); Alcohol Level 226 mg/dL (0-10); Alkaline Phosphatase 174 U/L (35-105); Aspartate Amino Transferase 69 U/L (0-32); Blood Urea Nitrogen 5 mg/dL (6-20); Calcium 7.8 mg/dL (8.5-10.5); Carbon Dioxide 22 mmol/L (22-29); Chloride 116 mmol/L (98-107); Creatinine Clr Calc Pharmacy 177.6769; Globulin 2.7 g/dL (1.3-4.6); Glomerular Filtration Rate 165.1 mL/min (90-130); Glucose 116 mg/dL (65-115); Osmolality Calculated 306 mOsm/kg (285-295); Sodium 149 mmol/L (136-145); Thyroid Stimulating Hormone 1.12 uIU/mL (0.27-4.20); Total Bilirubin 2.2 mg/dL (0.15-1.2); Total Protein 5.7 g/dL (6.6-8.7)
[2023-12-20 21:39] LABS: Acetaminophen < 5.0 ug/mL (10-30); Anion Gap 14.6 (5-19); Potassium 3.6 mmol/L (3.5-5.1); Salicylate < 0.3 mg/dL (3-10)
[2023-12-20 23:21] VITALS: BP 123/76; PULSE 58; RESP 16; O2SAT 98
[2023-12-21] VITALS (8 sets, daily range): BP systolic 133–158; BP diastolic 73–95; PULSE 65–109; RESP 15–18; TEMP 36.6–37.6; O2SAT 95–100
[2023-12-21] MEDS: ciprofloxacin 500 mg Tablet PO (00:12)
[2023-12-21 03:37] LABS: Alcohol Level 146 mg/dL (0-10)
--- NOTE | 2023-12-21 07:53 | PC.PHAR ---
Addendum entered by Darlene Carrero 12/21/23 07:54: Med rec completed with most recent fill dates and day supply per [facility]. Original Note: Patient unable to verify meds
[2023-12-21] MEDS: sodium chloride 0.9% 1,000 ML 999 ML IV ×2 (09:30→10:45)
--- NOTE | 2023-12-21 14:24 | PM.CONSULT ---
Providers/Reason For Consult Consulting Physician/Specialty*: Prashant Torrez D.P.M. Reason for Consult*: Left great toe paronychia Attending Physician: Marcell Archibald MD Primary Care Provider: Tam Del Valle MD History of Present Illness History of Present Illness Of her left great toe, states that Kay Calles is a 58 year old female at [facility] on 90-hour hold I was consulted for evaluation of her left great toe has redness and tenderness she believes she may have an ingrowing toenail. Denies any trauma or injury to the left foot. Has been ongoing for the past 3 to 5 days, denies any at home care. States that she works at [employer] and spends long periods of time on her feet, plans on working at [employer] when the open on December 26. Patient denies any subjective nausea, vomiting, fever, chills, shortness of breath or chest pain. Review of Systems General: Reports: 10 or more systems reviewed and unremarkable except in HPI and below Const: Denies: fever(s) or chills Card: Denies: chest pain or palpitations Resp: Denies: dyspnea or productive cough GI: Denies: abdominal pain, nausea or vomiting : Denies: flank pain Musc: Reports: extremity pain Skin/Breast: Reports: erythema, skin tenderness and nail changes; Denies: rash or change in hair Neuro: Reports: difficulty walking; Denies: numbness in extremities or sensory changes Psych: Denies: suicidal ideation Girma/Lymph: Denies: easy bruising Medications/Allergies Home Medications Medication Instructions Recorded Confirmed Last Taken Type albuterol sulfate 90 mcg/actuation 1 inh inhalation QID PRN shortness 07/19/23 12/21/23 Unknown Rx aerosol inhaler of breath or wheezing #8.5 grams budesonide-formoterol HFA 160 1 puff inhalation BID #10.2 grams 07/26/23 12/21/23 Unknown Rx mcg-4.5 mcg/actuation aerosol inhaler (Symbicort) folic acid 1 mg tablet 1 mg PO DAILY 30 days #30 tabs 10/10/23 12/21/23 10/30/23 Rx buspirone 7.5 mg tablet 7.5 mg PO BID 2 weeks #28 tabs 11/21/23 12/21/23 Unknown Rx baclofen 10 mg tablet 10 mg PO TID PRN Pain 12/21/23 12/21/23 Unknown History fluoxetine 20 mg capsule 20 mg PO DAILY 12/21/23 12/21/23 Unknown History gabapentin 400 mg capsule See Rx Instructions .Route .COMPLEX 12/21/23 12/21/23 Unknown History ondansetron HCl 8 mg tablet 8 mg PO TID PRN Nausea 12/21/23 12/21/23 Unknown History topiramate 100 mg tablet 100 mg PO DAILY 12/21/23 12/21/23 Unknown History trazodone 100 mg tablet 100 - 200 mg PO BEDTIME 12/21/23 12/21/23 Unknown History Allergies Allergy/AdvReac Type Severity Reaction Status Date / Time venom-wasp Allergy Severe ALGY-Anaphy Verified 12/20/23 17:21 laxis Sulfa (Sulfonamide Allergy Intermediate Hives Verified 12/20/23 17:21 Antibiotics) aspirin Allergy Unknown Unknown Verified 12/20/23 17:21 Cephalosporins Allergy Unknown Unknown Verified 12/20/23 17:21 NSAIDS (Non-Steroidal Allergy Unknown Unknown Verified 12/20/23 17:21 Anti-Inflamma sumatriptan [From Imitrex] Allergy Unknown Unknown Verified 12/20/23 17:21 acetaminophen [From Tylenol] Allergy Unknown Verified 12/20/23 17:21 ibuprofen Allergy UNKNOWN Verified 12/20/23 17:21 [From NeoProfen (ibuprofen lysn)(PF)] metoclopramide [From Reglan] Allergy ALGY-Joint Verified 12/20/23 17:21 Pain bupropion [From Wellbutrin] AdvReac Intermediate ALGY-Rash Verified 12/20/23 17:21 prednisone AdvReac Intermediate Heart rate Verified 12/20/23 17:21 was heavy. [place] sick. PFSH Acute PFSH: Medical History PTSD (post-traumatic stress disorder) Suicidal ideation Cannabis dependence, episodic use Major depressive disorder, recurrent, severe with psychotic symptoms Nicotine dependence due to vaping tobacco product Vaping nicotine Chronic post-traumatic stress disorder Alcohol use disorder, severe, dependence Psychiatric care Uncontrolled type 2 diabetes with neuropathy Sacroiliitis H/O Belkys-Valenzuela syndrome (~07/2019) EGD at [facility]. EGD 10/26 negative. Chronic back pain Congestive heart failure Diabetes mellitus MONTANO (nonalcoholic steatohepatitis) Borderline personality disorder Bilateral primary osteoarthritis of hip Surgical History History of hysterectomy History of esophagogastroduodenoscopy H/O colonoscopy H/O cervical spine surgery Family History Son Suicide September 2019 Other Cancer Hypertension Psychiatric illness Social History Smoking and tobacco/nicotine status: current every day tobacco/nicotine user cigarettes [ Other cigarette details: When vape breaks she returns to cigarettes] and e-cigarettes E-Cigarette Details: vaporizer device and with nicotine E-cig/vape details: 6000 puffs in each device, uses 3 per month Quit status (tobacco/nicotine): not considering quitting Second hand smoke exposure: Yes Alcohol intake: current Alcohol intake frequency: few times a month Alcohol type: hard liquor Substance/Drug Use: current Substance/Drug use frequency: daily Other substance/drug use details: medical card Adopted: No Caregiver/support person: Yes (cleans and runs errands) Lives independently: Yes Household members: none Housing: Apartment Marital status: Single Number of children: 2 Number of grandchildren: 0 Highest education level completed: Associate Degree: Occupational, Technical, Vocational Program Education level details: [facility] service: No Current occupational status: disabled Current occupational exposures/hazards: No Pets and animals: Yes Pets & animals: cat(s) Leisure activites: music, games and other Leisure activities details: watch a lot of movies Sexually active: No Do you think of yourself as: Straight/Heterosexual Current gender identity: Female Aparna/Catholic: Zoroastrianism Special aparna needs: No Agree to transfusion: Yes Female Reproductive History: Para: 2 Spontaneous abortions: Yes (10) Vitals/I&O/Wt Last Vital Signs Temp 98.6 F 12/21/23 12:12 Pulse 109 H 12/21/23 12:12 Resp 18 12/21/23 12:12 BP 158/95 12/21/23 12:12 Pulse Ox 99 12/21/23 12:12 O2 Del Method Room Air 12/21/23 12:13 12/20/23 12/21/23 12/21/23 22:59 06:59 14:59 Intake Total 1999 Balance 1999 Weight last 48 hrs Weight 158 lb Physical Exam Narrative: GENERAL: Patient is alert and oriented ?3 and in no acute distress. The following is a focused bilateral lower extremity exam. VASCULAR: Dorsalis pedis palpable +2 bilaterally. Posterior tibial arteries +1. Capillary refill time less than 3 seconds to the distal hallux bilaterally. Calf is supple and nontender proximally and distally. Decreased pedal hair growth. NEUROLOGICAL: Protective sensation intact 0/10 sites, tested with [place] Suz[place] monofilament to bilateral feet. DERMATOLOGICAL: Ingrowing medial border left great toenail with localized erythema and serous drainage, no hypergranulation tissue and no proximal lymphangitic streaking. MUSCULOSKELETAL: Mild tenderness at left great toenail medial nail fold. Decreased dorsiflexion to the left ankle compared to the contralateral limb. Patient drags her left foot during the swing phase of the gait cycle with difficulty clearing the ground. Patient has pes planus foot type bilaterally with collapse of the longitudinal arch. Externally rotated angle and base of gait. Data 12/20/23 20:55 12/20/23 20:55 A&P Assessment and plan (1) Paronychia due to ingrown nail: Plan Patient was examined and evaluated, findings and treatment options discussed with patient at length. After obtaining verbal consent the left great toe was cleansed with alcohol, no anesthesia was required and no local anesthetic utilized due to patient's underlying neuropathy. Utilizing sterile nail nippers the offending medial border of the left great toenail was split longitudinally and avulsed without incident, flushed with saline flush and dressed with bacitracin, sterile gauze, Radha and tape. Will change the dressing within 24 hours to assess whether patient would benefit from oral antibiotics versus just topical. Moving forward planning on mupirocin ointment 3 times daily. No limitations with weightbearing, advised nursing staff to cover her left foot when showering. Coding Level of Care Code Acute Code for g Fwd Diagnoses Paronychia due to ingrown nail
--- NOTE | 2023-12-21 18:44 | PC.NURSE ---
DR. AQUINO CAME TO SEE PT DUE TO L GREAT TOE PAIN, DISCOLORATION, AND MINIMAL EDEMA. DR. AQUINO PLACED A DRESSING ONTO THE L GREAT TOE AND INSTRUCTED STAFF TO NOT REMOVE THIS DRESSING UNTIL HE COMES BACK SUNDAY. THIS DRESSING IS TO NOT GET WET AND WILL REQUIRE COVERING DURING PERSONAL HYGIENE TIMES.
[2023-12-22 04:00] VITALS: RESP 16
[2023-12-22] MEDS: nicotine 4 mg lozenge MUCOUS MEM (05:58)
[2023-12-22 06:00] VITALS: BP 145/78; PULSE 78; RESP 18; TEMP 37.1; O2SAT 98
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
[2023-12-22 08:42] VITALS: BP 137/96; PULSE 99; RESP 18; TEMP 36.8; O2SAT 99
[2023-12-22] MEDS: thiamine 100 mg Tablet PO (09:15)
[2023-12-22] MEDS: multivitamin therapeutic Tablet 1 TAB PO (09:15)
[2023-12-22] MEDS: folic acid 1 mg Tablet PO (09:15)
--- NOTE | 2023-12-22 09:21 | PC.NURSE ---
Patient says that she is doing pretty good. Patient says that her life is looking up , that she has two jobs and is engaged to be . Patient denies suicidal ideation, homicidal ideation, AVH, depression, and anxiety.
[2023-12-22] MEDS: nicotine 21 mg Patch 1 PATCH TRANSDERMA (11:44)
[2023-12-22 12:00] VITALS: BP 131/92; PULSE 80; RESP 17; TEMP 36.7; O2SAT 99
[2023-12-22] MEDS: hyDROXYzine 25 mg Capsule 50 MG PO ×2 (14:12→20:54)
[2023-12-22] MEDS: capsaicin 0.025% cream 60 gm 1 APPLIC TOPICAL (14:52)
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
[2023-12-22 16:00] VITALS: BP 135/82; PULSE 74; RESP 17; TEMP 37.1; O2SAT 99
[2023-12-22 20:00] VITALS: BP 132/82; PULSE 73; RESP 18; O2SAT 98
[2023-12-22] MEDS: trazodone 50 mg Tablet PO (20:54)
[2023-12-22] MEDS: lidocaine 5% Patch 1 PATCH TOPICAL (20:54)
[2023-12-22] MEDS: OLANZapine 5 mg ODT PO (22:10)
[2023-12-22] MEDS: LORazepam 2 mg Tablet PO (23:40)
--- NOTE | 2023-12-22 23:40 | PC.NURSE ---
Pt's CIWA score of 10 per protocol administered 2mg PO Ativan.
[2023-12-23] VITALS: BP 172/85; PULSE 106; RESP 18; TEMP 36.9; O2SAT 100
[2023-12-23 04:00] VITALS: BP 150/87; PULSE 85; RESP 18; TEMP 36.7; O2SAT 100
[2023-12-23] MEDS: nicotine 2 mg Gum BUCCAL (05:45)
[2023-12-23 08:00] VITALS: BP 121/81; PULSE 86; RESP 17; O2SAT 100
[2023-12-23] MEDS: multivitamin therapeutic Tablet 1 TAB PO (08:33)
[2023-12-23] MEDS: folic acid 1 mg Tablet PO (08:33)
[2023-12-23] MEDS: thiamine 100 mg Tablet PO (08:33)
[2023-12-23] MEDS: nicotine 21 mg Patch 1 PATCH TRANSDERMA (08:34)
--- NOTE | 2023-12-23 11:15 | P.PN_ITS ---
Subjective 2 Subjective: Patient seen and evaluated this morning, denies any pain or drainage to the left great toe. No other complaints Vitals/I&O/Wt Last Vital Signs Temp 98.1 F 12/23/23 04:00 Pulse 86 12/23/23 08:00 Resp 17 12/23/23 08:00 BP 121/81 12/23/23 08:00 Pulse Ox 100 12/23/23 08:00 O2 Del Method Room Air 12/23/23 04:00 Weight last 48 hrs Weight 167 lb Physical Exam 2 Narrative: GENERAL: Patient is alert and oriented ?3 and in no acute distress. The following is a focused bilateral lower extremity exam. VASCULAR: Dorsalis pedis palpable +2 bilaterally. Posterior tibial arteries +1. Capillary refill time less than 3 seconds to the distal hallux bilaterally. Calf is supple and nontender proximally and distally. Decreased pedal hair growth. NEUROLOGICAL: Protective sensation intact 0/10 sites, tested with [place] monofilament to bilateral feet. DERMATOLOGICAL: Nailbed left great toe is well-healing, no erythema, warmth or hypergranulation tissue. MUSCULOSKELETAL: No tenderness at left great toenail medial nail fold. Decreased dorsiflexion to the left ankle compared to the contralateral limb. Patient drags her left foot during the swing phase of the gait cycle with difficulty clearing the ground. Patient has pes planus foot type bilaterally with collapse of the longitudinal arch. Externally rotated angle and base of gait. Data 12/20/23 20:55 12/20/23 20:55 A&P Assessment and plan (1) Paronychia due to ingrown nail: Plan Patient was examined and evaluated, findings and treatment options discussed with patient at length. After obtaining verbal consent the left great toe was cleansed with alcohol, no anesthesia was required and no local anesthetic utilized due to patient's underlying neuropathy. Utilizing sterile nail nippers the offending medial border of the left great toenail was split longitudinally and avulsed without incident, flushed with saline flush and dressed with bacitracin, sterile gauze, Radha and tape. Will change the dressing within 24 hours to assess whether patient would benefit from oral antibiotics versus just topical. Moving forward planning on mupirocin ointment 3 times daily. No limitations with weightbearing, advised nursing staff to cover her left foot when showering. Interim update 12/23/2023 Erythema/paronychia completely resolved at today's visit. While healing nailbed without clinical signs of infection. No restrictions in activity May bathe with running water, no soaking for the next 2 weeks Patient instructed that when she goes home she will be applying topical antibiotic ointment twice daily with a Band-Aid, I will send mupirocin to her pharmacy of choice electronically. Follow-up in podiatry clinic January 09 at 8:15 AM. Attestations 2 Medical Necessity Statement*: Patient is on a 90-hour hold. Coding Level of Care Code Acute Code for [facility] Fwd Diagnoses Paronychia due to ingrown nail
[2023-12-23 12:00] VITALS: BP 141/94; PULSE 92; RESP 18; O2SAT 100
[2023-12-23 16:00] VITALS: BP 164/98; PULSE 120; RESP 18; O2SAT 98
--- NOTE | 2023-12-23 19:09 | P.NPUPN_ITS ---
Subjective NPU 2 Subjective: Patient presented today reporting that she is doing fine. She identified the fact that she does need to get her drinking and control. She has some magical thinking about how things but a change without significant send on her part. She continued to focus on getting home and getting back to work. We discussed the likelihood of discharge tomorrow she denied any side effects of the medication. She continued to lobby for pain medications. Additionally after having conversations with this publications writer she would then go and represent the conversations and what appeared to be less than accurate recounting. Mental Status Exam 2 MSE Comments: This is an obese, white female in the hospital scrubs with adequate grooming and eye contact. No abnormal movements, except for mild psychomotor retardation. She does have a noticeable rash across her face. Cooperative with exam in mild distress. Speech was more normal rate and volume. Mood described I am okay and I hope I can go home tomorrow; affect appeared euthymic. Thought process, organized. Thought content: patient denied suicidal or homicidal ideation, there were no delusions reported or noted, patient denied any auditory or visual hallucinations. Attention and concentration, appeared intact and memory was somewhat reliable but none were formally tested. She is alert and oriented times three. Insight and judgment are limited. Impulse control is limited. Vitals/I&O/Wt Last Vital Signs Temp 98.1 F 12/23/23 04:00 Pulse 120 H 12/23/23 16:00 Resp 18 12/23/23 16:00 BP 164/98 12/23/23 16:00 Pulse Ox 98 12/23/23 16:00 O2 Del Method Room Air 12/23/23 04:00 Weight last 48 hrs Weight 75.75 kg Data NPU 12/20/23 20:55 12/20/23 20:55 A&P Assessment and plan (1) Paronychia due to ingrown nail: (2) Depression: (3) Suicidal ideation: (4) Alcohol use disorder, severe, dependence: (5) Borderline personality disorder: Plan This is a 58-year-old white female with multiple inpatient hospitalizations with a history of PTSD depression and borderline personality disorder admitted with suicidal ideation in the context of her use of alcohol with poor coping skills. BAL was 226 when she arrived and she was positive for cannabis as well. She denies any need for the hospitalization that she is here on a 96-hour hold. 1.? ?Engage? patient in individual ,milieu, and group therapy ?2. ? Continue current medication ?3. ? TO-15 minute checks on the unit. ?4.? Recommend sober living treatment at the highest level of care to which the patient is willing to commit. 5. ? CIWA protocol, patient may benefit from a trial of naltrexone oral to target alcohol cravings. 6. Evaluate for safety against the context of the 96-hour hold. Likely discharge tomorrow. Involuntary Hold Information 2 96 Hour Hold: 96 Hour Involuntary Admission: Yes 96 Hour Hold Ending Date: 12/26/23 96 Hour Hold Ending Time: 20:35 Attestations NPU 2 Medical Necessity Statement*: Inpatient hospitalization is medically necessary and deemed to be the clinically appropriate intervention at this time. We will monitor and initiate medications while making changes as indicated. Her likely length of stay is 1-3 days. Coding Level of Care Code Acute Code for [facility] Fwd Diagnoses Paronychia due to ingrown nail Depression F32.A Suicidal ideation R45.851 Alcohol use disorder, severe, dependence F10.20 Borderline personality disorder F60.3
[2023-12-23 19:58] VITALS: BP 111/71; PULSE 86; RESP 16; TEMP 37.3; O2SAT 99
[2023-12-24] VITALS: BP 106/64; PULSE 81; RESP 16; TEMP 37.2; O2SAT 98
[2023-12-24] MEDS: OLANZapine 5 mg ODT PO (00:46)
[2023-12-24 04:00] VITALS: BP 117/68; PULSE 74; RESP 16; O2SAT 96
--- NOTE | 2023-12-24 07:09 | W.PM.NPUDCS ---
Diagnoses at Discharge Discharge Diagnosis (1) Paronychia due to ingrown nail: Status: Acute (2) Depression: Status: Inactive (3) Suicidal ideation: Status: Resolved (4) Alcohol use disorder, severe, dependence: Status: Chronic (5) Borderline personality disorder: Status: Chronic Reason for Visit Reason for Visit: 96 HOUR HOLD Involuntary Hold Information 96 Hour Hold: 96 Hour Involuntary Admission: Yes 96 Hour Hold Ending Date: 12/26/23 96 Hour Hold Ending Time: 20:35 Mental Status Exam MSE Comments: This is an obese, white female in the hospital scrubs with adequate grooming and eye contact. No abnormal movements, except for mild psychomotor retardation. She does have a noticeable rash across her face. Cooperative with exam in mild distress. Speech was more normal rate and volume. Mood described I am okay and I hope I can go home tomorrow; affect appeared euthymic. Thought process, organized. Thought content: patient denied suicidal or homicidal ideation, there were no delusions reported or noted, patient denied any auditory or visual hallucinations. Attention and concentration, appeared intact and memory was somewhat reliable but none were formally tested. She is alert and oriented times three. Insight and judgment are limited. Impulse control is limited. Discharge Data Studies Completed and Pending: Completed Studies During Hospitalization Category Date Time Status XR chest 1V katherine ble [id number] Routine Exams 12/22/23 15:12 Completed Radiology Impressions Chest X-Ray 12/22/23 15:12 IMPRESSION: No acute findings. Laboratory Results WBC 5.01 10^3/uL (3.2 9-11.43) 12/20/23 20:55 RBC 3.38 10^6/uL (3.8 5-5.65) L 12/20/23 20:55 Hgb 10.90 g/dL (11.27 -16.99) L 12/20/23 20:55 Hct 32.7 % (36-47) L 12/20/23 20:55 MCV 96.7 fl (85-98) 12/20/23 20:55 MCH 32.2 pg (27-33) 12/20/23 20:55 MCHC 33.3 g/dL (30-55) 12/20/23 20:55 RDW 15.1 % (12.1-15.1 ) 12/20/23 20:55 Plt Count 107 10^3/cmm (157 -399) L 12/20/23 20:55 MPV 9.8 fL (7.4-10.4) 12/20/23 20:55 Neut % (Auto) 60.7 % 12/20/23 20:55 Lymph % (Auto) 28.7 % 12/20/23 20:55 [place] % (Auto) 5.4 % 12/20/23 20:55 Eos % (Auto) 4.0 % 12/20/23 20:55 Baso % (Auto) 0.8 % 12/20/23 20:55 Neut # (Auto) 3.04 10^3/uL (1.8 -7.7) 12/20/23 20:55 Lymph # (Auto) 1.4 10^3/uL (0.8- 4.8) 12/20/23 20:55 [place] # (Auto) 0.3 10^3/uL (0.2- 0.9) 12/20/23 20:55 Eos # (Auto) 0.2 10^3/uL (0.0- 0.8) 12/20/23 20:55 Baso # (Auto) 0.0 10^3/uL (0.0- 0.1) 12/20/23 20: Nucleated RBC % (a uto) 0 % 12/20/23 20: Nucleated RBCs # 0.0 /100WBC 12/20/23 20:55 Sodium 149 mmol/L (136-1 45) H 12/20/23 20:55 Potassium 3.6 mmol/L (3.5-5 .1) 12/20/23 20:55 Chloride 116 mmol/L (98-10 7) H 12/20/23 20:55 Carbon Dioxide 22 mmol/L (22-29) 12/20/23 20:55 Anion Gap 14.6 (5-19) 12/20/23 20:55 BUN 5 mg/dL (6-20) L 12/20/23 20:55 Creatinine 0.4 mg/dL (0.5-0. 9) L 12/20/23 20:55 GFR Calculation 165.1 mL/min (90- 130) H 12/20/23 20:55 Glucose 116 mg/dL (65-115 ) H 12/20/23 20:55 Calculated Osmolal ity 306 mOsm/kg (285- 295) H 12/20/23 20:55 Calcium 7.8 mg/dL (8.5-10 .5) L 12/20/23 20:55 Total Bilirubin 2.2 mg/dL (0.15-1 .2) H 12/20/23 20:55 AST 69 U/L (0-32) H 12/20/23 20:55 ALT 29 U/L (0-33) 12/20/23 20:55 Alkaline Phosphata se 174 U/L (35-105) H 12/20/23 20:55 Total Protein 5.7 g/dL (6.6-8.7 ) L 12/20/23 20: Albumin 3.0 g/dL (3.5-5.2 ) L 12/20/23 20: Globulin 2.7 g/dL (1.3-4.6 ) 12/20/23 20: TSH 1.12 uIU/mL (0.27 -4.20) 12/20/23 20: Urine Color Dark yellow (Yel low) A 12/20/23 21:03 Urine Appearance Turbid (CLEAR) A 12/20/23 21:03 Urine pH 6.5 (5-7) 12/20/23 21:03 Ur Specific Gravit y 1.020 (1.005-1.0 30) 12/20/23 21:03 Urine Protein 1+ (Negative) A 12/20/23 21:03 Urine Glucose (UA) Negative (Normal ) 12/20/23 21:03 Urine Ketones Negative (Negati ve) 12/20/23 21: Urine Blood Negative (Negati ve) 12/20/23 21:03 Urine Nitrate Negative (Negati ve) 12/20/23 21:03 Urine Bilirubin 1+ (Negative) H 12/20/23 21:03 Urine Urobilinogen 4.0 mg/dL (Negati ve) H 12/20/23 21:03 Ur Leukocyte Colleen ase Trace (Negative) A 12/20/23 21:03 Urine RBC 0-2 /hpf (0-2) 12/20/23 21:03 Urine WBC 6-10 /hpf (0-5) 12/20/23 21:03 Ur Squamous Epith Cells 21-50 /hpf (0-5) 12/20/23 21:03 Amorphous Sediment Not Reportable 12/20/23 21:03 Urine Bacteria 4+ /hpf (NONE) H 12/20/23 21:03 Hyaline Casts 5.36 /lpf 12/20/23 21:03 Salicylates < 0.3 mg/dL (3-10 ) L 12/20/23 20:55 Urine Opiates Scre en Negative ng/mL (N egative) 12/20/23 21:03 Acetaminophen < 5.0 ug/mL (10-3 0) L 12/20/23 20:55 Ur Barbiturates Sc reen Negative ng/mL (N egative) 12/20/23 21:03 Ur Phencyclidine S crn Negative ng/mL (N egative) 12/20/23 21:03 Ur Amphetamines Sc reen Negative ng/mL (N egative) 12/20/23 21:03 U Benzodiazepines Scrn Negative ng/mL (N egative) 12/20/23 21:03 Urine Cocaine Scre en Negative ng/mL (N egative) 12/20/23 21:03 U Marijuana (THC) Screen Positive ng/mL (N egative) H 12/20/23 21:03 Ethyl Alcohol 146 mg/dL (0-10) H 12/21/23 03:06 Vitals: Last Vital Signs Temp 98.9 F 12/24/23 00:00 Pulse 74 12/24/23 04:00 Resp 16 12/24/23 04:00 BP 117/68 12/24/23 04:00 Pulse Ox 96 12/24/23 04:00 O2 Del Method Room Air 12/23/23 04:00 Discharge Plan Discharge Condition: Stable Prescriptions: New thiamine mononitrate (vit B1) [Vitamin B-1 (mononitrate)] 100 mg Tablet 100 mg PO DAILY 30 Days Qty: 30 1RF mupirocin 2 % ointment 1 applic topical BID 14 Days Qty: 15 0RF Rx Instructions: Applied to left great toe twice daily with Band-Aid covering. Continued buspirone 7.5 mg tablet 7.5 mg PO BID 14 Days Qty: 28 0RF albuterol sulfate 90 mcg/actuation HFA aerosol inhaler 1 inh inhalation QID PRN (Reason: shortness of breath or wheezing) Qty: 8.5 0RF budesonide-formoterol [Symbicort] 160-4.5 mcg/actuation HFA aerosol inhaler 1 puff inhalation BID Qty: 10.2 1RF folic acid 1 mg Tablet 1 mg PO DAILY 30 Days Qty: 30 1RF ondansetron HCl 8 mg tablet 8 mg PO TID PRN (Reason: Nausea) trazodone 100 mg tablet 100 - 200 mg PO BEDTIME baclofen 10 mg tablet 10 mg PO TID PRN (Reason: Pain) topiramate 100 mg tablet 100 mg PO DAILY fluoxetine 20 mg capsule 20 mg PO DAILY Discontinued gabapentin 400 mg capsule See Rx Instructions .ROUTE .COMPLEX Rx Instructions: NEEDED TAKE ONE CAPSULE BY MOUTH FOUR TIMES DAILY x2 DAYS, THREE TIMES DAILY FOR x2 DAYS, TWICE DAILY x2 DAYS, Every night AT BEDTIME x2 DAYS. STOP Discharge Orders: Discharge Order (Routine); Ordered 12/24/23 Ordered By: Marcell Archibald Referrals: Tam Del Valle MD [Primary Care Provider] - Discharge Diet: Regular Discharge Activity: Resume usual activity Patient Instructions: Opioid Safety Discharge Attestations NPU Time Spent in Discharge Care*: less than 30 min Specific Discharge Activities: Specific discharge activities: educating patient, discussing with telephonic nurse case manager/social workers/dc planners, documenting/other paperwork and evaluating patient/reviewing data Coding Level of Care Code Acute Code for [facility] Fwd Diagnoses Paronychia due to ingrown nail Depression F32.A Suicidal ideation R45.851 Alcohol use disorder, severe, dependence F10.20 Borderline personality disorder F60.3
[2023-12-24 07:21] VITALS: BP 117/68; PULSE 74; RESP 16; O2SAT 96
[2023-12-24] MEDS: multivitamin therapeutic Tablet 1 TAB PO (08:35)
[2023-12-24] MEDS: folic acid 1 mg Tablet PO (08:35)
[2023-12-24] MEDS: thiamine 100 mg Tablet PO (08:35)
== END 2023-12-24 09:02 | disposition home or self-care (01) | DRG 881 ==
LOC: ER 12-21 06:43 → NP 12-21 11:56
PROVIDERS: Emergency Medicine; Admitting Provider Psychiatry & Neurology Psychiatry; Emergency Provider Family Medicine; PCP Family Medicine; Visit Provider Psychiatry & Neurology Psychiatry
DX: F32.A Depression, unspecified (principal); R45.851 Suicidal ideations; L03.032 Cellulitis of left toe; L60.0 Ingrowing nail; F43.12 Post-traumatic stress disorder, chronic; F10.229 Alcohol dependence with intoxication, unspecified; F12.20 Cannabis dependence, uncomplicated; F17.290 Nicotine dependence, other tobacco product, uncomplicated; F17.210 Nicotine dependence, cigarettes, uncomplicated; Y90.7 Blood alcohol level of 200-239 mg/100 ml; E11.9 Type 2 diabetes mellitus without complications; G89.29 Other chronic pain; M54.9 Dorsalgia, unspecified; F60.3 Borderline personality disorder; M16.0 Bilateral primary osteoarthritis of hip; E66.9 Obesity, unspecified; Z68.33 Body mass index [BMI] 33.0-33.9, adult; R45.1 Restlessness and agitation
CPT/HCPCS: 36415; 71045; 80053; 80306; 80307; 81001; 84443; 85025; 87426; 93005; 96372; 97150; 97165; 99285; J2060; J3486; J7030

== ENCOUNTER 2024-01-13 15:23 | Emergency (ER) | payer MEDICARE, MEDICAID, SELFPAY ==
[2023-06-26 14:03] VITALS: BP 147/78; BMI 37.0
[2024-01-13 15:29] VITALS: BP 108/71; PULSE 84; RESP 20; TEMP 36.9; O2SAT 97; BMI 30.2
[2024-01-13 15:57] LABS: Basophils # 0.1 10^3/uL (0.0-0.1); Basophils % 1.1 %; Eosinophils # 0.1 10^3/uL (0.0-0.8); Eosinophils % 2.5 %; Hematocrit 32.1 % (36-47); Lymphocytes # 1.3 10^3/uL (0.8-4.8); Lymphocytes % 27.6 %; Mean Corpuscular Hemoglobin 31.7 pg (27-33); Mean Corpuscular Volume 93.3 fl (85-98); Mean Platelet Volume 9.4 fL (7.4-10.4); Monocytes # 0.3 10^3/uL (0.2-0.9); Monocytes % 5.5 %; Neutrophils # 2.97 10^3/uL (1.8-7.7); Neutrophils % 63.1 %; Nucleated Red Blood Cells % 0 %; Platelet Count 90 10^3/cmm (157-399); Red Blood Count 3.44 10^6/uL (3.85-5.65); Red Cell Distribution Width 13.6 % (12.1-15.1); White Blood Count 4.71 10^3/uL (3.29-11.43)
[2024-01-13 16:14] LABS: Alanine Aminotransferase 24 U/L (0-33); Albumin Level 2.9 g/dL (3.5-5.2); Alkaline Phosphatase 218 U/L (35-105); Anion Gap 14.3 (5-19); Aspartate Amino Transferase 64 U/L (0-32); Blood Urea Nitrogen 5 mg/dL (6-20); Carbon Dioxide 22 mmol/L (22-29); Chloride 111 mmol/L (98-107); Creatinine Clr Calc Pharmacy 112.4533; Globulin 2.6 g/dL (1.3-4.6); Glomerular Filtration Rate 103.4 mL/min (90-130); Glucose 109 mg/dL (65-115); Osmolality Calculated 296 mOsm/kg (285-295); Potassium 3.3 mmol/L (3.5-5.1); Sodium 144 mmol/L (136-145); Total Bilirubin 1.9 mg/dL (0.15-1.2); Total Protein 5.5 g/dL (6.6-8.7)
--- NOTE | 2024-01-13 16:26 | W.ED.WEAKNES ---
HPI - Weakness General: Chief complaint: Weakness Stated complaint: weakness, fatigue - has pernicious Anemia Time Seen by Provider: 01/13/24 16:24 History of Present Illness: 58-year-old female who presents emergency room with generalized weakness/fatigue. She says she has been waking up every day feeling fatigued and that she is jobhunting and she needs her energy. She is concerned she might be iron deficient and have some anemia. No cough. No fevers. No chest pain. No abdominal pain. No nausea or vomiting. No dysuria. Review of Systems Narrative: Constitutional symptoms: Negative except as documented in HPI. Skin symptoms: Negative except as documented in HPI. Eye symptoms: Negative except as documented in HPI. ENMT symptoms: Negative except as documented in HPI. Respiratory symptoms: Negative except as documented in HPI. Cardiovascular symptoms: Negative except as documented in HPI. Gastrointestinal symptoms: Negative except as documented in HPI. Genitourinary symptoms: Negative except as documented in HPI. Musculoskeletal symptoms: Negative except as documented in HPI. Neurologic symptoms: Negative except as documented in HPI. Psychiatric symptoms: Negative except as documented in HPI. Endocrine symptoms: Negative except as documented in HPI. PFSH ED PFSH: Medical History PTSD (post-traumatic stress disorder) Suicidal ideation Cannabis dependence, episodic use Major depressive disorder, recurrent, severe with psychotic symptoms Nicotine dependence due to vaping tobacco product Vaping nicotine Chronic post-traumatic stress disorder Alcohol use disorder, severe, dependence Psychiatric care Uncontrolled type 2 diabetes with neuropathy Sacroiliitis H/O Belkys-Valenzuela syndrome (~07/2019) EGD at [facility]. EGD 10/26 negative. Chronic back pain Congestive heart failure Diabetes mellitus MONTANO (nonalcoholic steatohepatitis) Borderline personality disorder Bilateral primary osteoarthritis of hip Surgical History History of hysterectomy History of esophagogastroduodenoscopy H/O colonoscopy H/O cervical spine surgery Family History Son Suicide September 2019 Other Cancer Hypertension Psychiatric illness Social History Smoking and tobacco/nicotine status: current every day tobacco/nicotine user cigarettes [ Other cigarette details: When vape breaks she returns to cigarettes] and e-cigarettes E-Cigarette Details: vaporizer device and with nicotine E-cig/vape details: 6000 puffs in each device, uses 3 per month Quit status (tobacco/nicotine): not considering quitting Second hand smoke exposure: Yes Alcohol intake: current Alcohol intake frequency: few times a month Alcohol type: hard liquor Substance/Drug Use: current Substance/Drug use frequency: daily Other substance/drug use details: medical card Adopted: No Caregiver/support person: Yes (cleans and runs errands) Lives independently: Yes Household members: none Housing: Apartment Marital status: Single Number of children: 2 Number of grandchildren: 0 Highest education level completed: Associate Degree: Occupational, Technical, Vocational Program Education level details: [facility] service: No Current occupational status: disabled Current occupational exposures/hazards: No Pets and animals: Yes Pets & animals: cat(s) Leisure activites: music, games and other Leisure activities details: watch a lot of movies Sexually active: No Do you think of yourself as: Straight/Heterosexual Current gender identity: Female Aparna/Mu-Ism: Christianity Special aparna needs: No Agree to transfusion: Yes Female Reproductive History: Para: 2 Spontaneous abortions: Yes (10) Physical Exam Narrative: EXAM NARRATIVE: General: Alert, no acute distress. Skin: Warm, dry. Head: Normocephalic, atraumatic. Neck: Supple, trachea midline. Eye: Extraocular movements are intact. Ears, nose, mouth and throat: mucosa moist. Cardiovascular: Regular, Normal peripheral perfusion. Respiratory: Lungs are clear to auscultation, respirations are non-labored, breath sounds are equal, Symmetrical chest wall expansion. Gastrointestinal: Soft, Nontender, Non distended Musculoskeletal: Normal ROM, no deformity. Neurological: Alert and oriented, No focal neurological deficit observed. Psychiatric: Cooperative, appropriate mood & affect. Course Vital Signs: Vital signs: Vital Signs Temperature 98.4 F 01/13/24 15:29 Pulse Rate 84 01/13/24 15:29 Respiratory Rate 20 H 01/13/24 15:29 Blood Pressure 108/71 01/13/24 15:29 Pulse Oximetry 97 01/13/24 15:29 Oxygen Delivery Me thod Room Air 01/13/24 15:29 MDM - Weakness Medical Decision Making Medical decision making: Differential diagnosis for patient presenting with generalized weakness including but not limited to and based on the above HPI, review of systems and physical exam: Sepsis. Dehydration. Renal failure. Electrolyte abnormalities. Anemia. Congestive heart failure. Hypotension. Coronary syndrome. Hepatitis. Cirrhosis. Infections such as pneumonia, urinary tract infection, Tick bourne illness, Cellulitis, Viral infections including influenza and Covid-19. Workup: labwork and lab/exam driven imaging ordered to evaluate, rule in and rule out above pathologies. Lab Review: Laboratory results were reviewed and interpreted by myself the emergency room physician. Patient has stable mild anemia with a hemoglobin of 10.9. No renal failure. No other concerning signs or symptoms at this time. No leukocytosis. Assessment and plan: Fatigue - Discharged home - Discussed plan with patient. Answered any questions. - Evaluation and treatment of this problem were appropriate in the emergency setting. Lab Data 01/13/24 15:52 01/13/24 15:52 Laboratory Results WBC 4.71 10^3/uL (3.29-11.43) 01/13/24 15:52 RBC 3.44 10^6/uL (3.85-5.65) L 01/13/24 15:52 Hgb 10.90 g/dL (11.27-16.99) L 01/13/24 15:52 Hct 32.1 % (36-47) L 01/13/24 15:52 MCV 93.3 fl (85-98) 01/13/24 15:52 MCH 31.7 pg (27-33) 01/13/24 15:52 MCHC 34.0 g/dL (30-55) 01/13/24 15:52 RDW 13.6 % (12.1-15.1) 01/13/24 15:52 Plt Count 90 10^3/cmm (157-399) L 01/13/24 15:52 MPV 9.4 fL (7.4-10.4) 01/13/24 15:52 Neut % (Auto) 63.1 % 01/13/24 15:52 Lymph % (Auto) 27.6 % 01/13/24 15:52 Christian % (Auto) 5.5 % 01/13/24 15:52 Eos % (Auto) 2.5 % 01/13/24 15:52 Baso % (Auto) 1.1 % 01/13/24 15:52 Neut # (Auto) 2.97 10^3/uL (1.8-7.7) 01/13/24 15:52 Lymph # (Auto) 1.3 10^3/uL (0.8-4.8) 01/13/24 15:52 Christian # (Auto) 0.3 10^3/uL (0.2-0.9) 01/13/24 15:52 Eos # (Auto) 0.1 10^3/uL (0.0-0.8) 01/13/24 15:52 Baso # (Auto) 0.1 10^3/uL (0.0-0.1) 01/13/24 15:52 Nucleated RBC % (auto) 0 % 01/13/24 15:52 Nucleated RBCs # 0.0 /100WBC 01/13/24 15:52 Sodium 144 mmol/L (136-145) 01/13/24 15:52 Potassium 3.3 mmol/L (3.5-5.1) L 01/13/24 15:52 Chloride 111 mmol/L (98-107) H 01/13/24 15:52 Carbon Dioxide 22 mmol/L (22-29) 01/13/24 15:52 Anion Gap 14.3 (5-19) 01/13/24 15:52 BUN 5 mg/dL (6-20) L 01/13/24 15:52 Creatinine 0.6 mg/dL (0.5-0.9) 01/13/24 15:52 GFR Calculation 103.4 mL/min (90-130) 01/13/24 15:52 Glucose 109 mg/dL (65-115) 01/13/24 15:52 Calculated Osmolality 296 mOsm/kg (285-295) H 01/13/24 15:52 Calcium 8.0 mg/dL (8.5-10.5) L 01/13/24 15:52 Total Bilirubin 1.9 mg/dL (0.15-1.2) H 01/13/24 15:52 AST 64 U/L (0-32) H 01/13/24 15:52 ALT 24 U/L (0-33) 01/13/24 15:52 Alkaline Phosphatase 218 U/L (35-105) H 10/06/24 15:52 Total Protein 5.5 g/dL (6.6-8.7) L 01/13/24 15:52 Albumin 2.9 g/dL (3.5-5.2) L 01/13/24 15:52 Globulin 2.6 g/dL (1.3-4.6) 01/13/24 15:52 No radiology studies performed this visit Discharge Plan Discharge Patient Disposition: Home Clinical Impression: Fatigue Condition: Stable Prescriptions: No Action buspirone 7.5 mg tablet 7.5 mg PO BID 14 Days Qty: 28 0RF albuterol sulfate 90 mcg/actuation HFA aerosol inhaler 1 inh inhalation QID PRN (Reason: shortness of breath or wheezing) Qty: 8.5 0RF budesonide-formoterol [Symbicort] 160-4.5 mcg/actuation HFA aerosol inhaler 1 puff inhalation BID Qty: 10.2 1RF folic acid 1 mg Tablet 1 mg PO DAILY 30 Days Qty: 30 1RF ondansetron HCl 8 mg tablet 8 mg PO TID PRN (Reason: Nausea) trazodone 100 mg tablet 100 - 200 mg PO BEDTIME baclofen 10 mg tablet 10 mg PO TID PRN (Reason: Pain) topiramate 100 mg tablet 100 mg PO DAILY fluoxetine 20 mg capsule 20 mg PO DAILY Vitamin B-1 (mononitrate) 100 mg Tablet 100 mg PO DAILY 30 Days Qty: 30 1RF Discharge Orders: Discharge ED (Routine); Ordered 01/13/24 Ordered By: Mary Hendrickson Referrals: Tam Del Valle MD [Primary Care Provider] - Discharge Diet: Usual diet Discharge Activity: Increase activity as tolerated Patient Instructions: Fatigue (ED) Activity Restrictions/Additional Instructions: Thank you for choosing [facility] for your healthcare needs today. Please realize this is an emergency room and that we are providing you with a medical screening exam and this may not be complete and all inclusive of all the testing and or work up that you may need to determine your ailment or severity of your illness. You have been screened and evaluated and felt safe for discharge. Health conditions do change or evolve sometimes and as such it is important that you follow up with your Primary Doctor to be re checked, 3-5 days is a general good time frame for follow up. You are always welcome to return to the ED for re assessment if your symptoms are worsening or you have new concerns Coding Level of Care Code ED Waste Oil Pumper for Gauravg Fwd Related Data Home Medications Medication Instructions Recorded Confirmed baclofen 10 mg tablet 10 mg PO TID PRN Pain 12/21/23 12/21/23 fluoxetine 20 mg capsule 20 mg PO DAILY 12/21/23 12/21/23 ondansetron HCl 8 mg tablet 8 mg PO TID PRN Nausea 12/21/23 12/21/23 topiramate 100 mg tablet 100 mg PO DAILY 12/21/23 12/21/23 trazodone 100 mg tablet 100 - 200 mg PO BEDTIME 12/21/23 12/21/23 Previous Rx's Medication Instructions Recorded albuterol sulfate 90 mcg/actuation 1 inh inhalation QID PRN shortness 07/19/23 aerosol inhaler of breath or wheezing #8.5 grams budesonide-formoterol HFA 160 1 puff inhalation BID #10.2 grams 07/26/23 mcg-4.5 mcg/actuation aerosol inhaler (Symbicort) folic acid 1 mg tablet 1 mg PO DAILY 30 days #30 tabs 10/10/23 buspirone 7.5 mg tablet 7.5 mg PO BID 2 weeks #28 tabs 11/21/23 thiamine mononitrate (vit B1) 100 100 mg PO DAILY 30 days #30 tabs 12/24/23 mg tablet (Vitamin B-1 (mononitrate)) Allergies Allergy/AdvReac Type Severity Reaction Status Date / Time venom-wasp Allergy Severe ALGY-Anaphy Verified 01/13/24 15:33 laxis Sulfa (Sulfonamide Allergy Intermediate Hives Verified 01/13/24 15:33 Antibiotics) aspirin Allergy Unknown Unknown Verified 01/13/24 15:33 Cephalosporins Allergy Unknown Unknown Verified 01/13/24 15:33 NSAIDS (Non-Steroidal Allergy Unknown Unknown Verified 01/13/24 15:33 Anti-Inflamma sumatriptan [From Imitrex] Allergy Unknown Unknown Verified 01/13/24 15:33 acetaminophen [From Tylenol] Allergy Unknown Verified 01/13/24 15:33 ibuprofen Allergy UNKNOWN Verified 01/13/24 15:33 [From NeoProfen (ibuprofen lysn)(PF)] metoclopramide [From Reglan] Allergy ALGY-Joint Verified 10/06/24 15:33 Pain bupropion [From Wellbutrin] AdvReac Intermediate ALGY-Rash Verified 01/13/24 15:33 prednisone AdvReac Intermediate Heart rate Verified 01/13/24 15:33 was heavy. [place] sick.
[2024-01-13 17:10] LABS: Bilirubin Urine Negative (Negative); Blood Urine 2+ (Negative); Glucose Urine UA Negative (Normal); Ketones Urine Negative (Negative); Leukocyte Esterase Urine Negative (Negative); Nitrate Urine Negative (Negative); Protein Urine Negative (Negative); Specific Gravity, Urine 1.011 (1.005-1.030); Urine Appearance Clear (CLEAR); Urine Color Dark Yellow (Yellow)
[2024-01-13] MEDS: cyanocobalamin 1,000 mcg/mL SDV 1000 MCG IM (17:12)
[2024-01-13 17:15] LABS: Add Urine Microscopic? YES; Bacteria Urine None Seen /hpf; Hyaline Casts Urine 0.81 /lpf; Squamous Epithelial Cell Urine 0-5 /hpf (0-5); WBC Urine 0-5 /hpf (0-5)
[2024-01-13 17:43] VITALS: BP 112/68; PULSE 77; RESP 16; O2SAT 97
== END 2024-01-13 17:44 | disposition home or self-care (01) ==
PROVIDERS: Emergency Medicine; Emergency Provider Emergency Medicine; PCP Family Medicine
DX: R53.83 Other fatigue (principal); F17.210 Nicotine dependence, cigarettes, uncomplicated; F17.290 Nicotine dependence, other tobacco product, uncomplicated; E11.40 Type 2 diabetes mellitus with diabetic neuropathy, unspecified; I50.9 Heart failure, unspecified
CPT/HCPCS: 36415; 80053; 81001; 85025; 96372; 99284; J3420

== ENCOUNTER 2024-02-24 18:01 | Emergency (ER) | payer MEDICARE, MEDICAID, SELFPAY ==
[2023-06-26 14:03] VITALS: BP 147/78; BMI 37.0
[2024-02-24 18:02] VITALS: BP 113/70; PULSE 63; RESP 18; TEMP 36.8; O2SAT 98; BMI 32.3
[2024-02-24 18:06] VITALS: BP 113/70; PULSE 63; RESP 18; TEMP 36.8; O2SAT 98
--- NOTE | 2024-02-24 18:17 | CTR_ITS ---
PROCEDURE INFORMATION: Exam: CT Head Without Contrast Exam date and time: 02/24/2024 6:35 PM Age: 58 years old Clinical indication: Injury or trauma; Fall; Blunt trauma (contusions or hematomas); Without loss of consciousness; Additional info: Fall, head injury TECHNIQUE: Imaging protocol: Computed tomography of the head without contrast. Radiation optimization: All CT scans at this facility use at least one of these dose optimization techniques: automated exposure control; mA and/or kV adjustment per patient size (includes targeted exams where dose is matched to clinical indication); or iterative reconstruction. COMPARISON: CT head wo con* [id number] 06/06/2023 9:06 PM RADIATION DOSE METRICS: Total DLP (mGy-cm): 1813.68 FINDINGS: Brain: There is an old lacune in the left basal ganglia. Moderate white matter disease and volume loss are identified. There is no acute infarct or edema. No hemorrhage. Cerebral ventricles: No ventriculomegaly. Paranasal sinuses: Visualized sinuses are unremarkable. No fluid levels. Mastoid air cells: Visualized mastoid air cells are well aerated. Bones: Unremarkable. No acute fracture. Soft tissues: There is superficial soft tissue swelling along the frontal calvarium. CT/CT head wo con* [id number] IMPRESSION: No acute fracture or intracranial hemorrhage.
[2024-02-24] MEDS: morphine 4 mg/mL SDV 1 mL 6 MG IM (18:28)
[2024-02-24] MEDS: ondansetron 4 MG Tablet PO (18:28)
[2024-02-24 18:33] VITALS: BP 113/70; PULSE 63; RESP 18; O2SAT 94
[2024-02-24 19:22] VITALS: BP 109/77; PULSE 78; RESP 16; O2SAT 97
--- NOTE | 2024-02-24 19:59 | ED_ITS ---
HPI - Head Injury General: Chief complaint: Head Injury Stated complaint: forehead pain s/p fall Time Seen by Provider: 02/24/24 18:04 History of Present Illness: This patient is a 58-year-old white female who fell and struck her head. She did not lose consciousness. She does have a goose egg on the right forehead. Patient states she has been drinking fireball today. She got an argument with her fianc? and started drinking. Denies neck pain. No other injuries. No nausea or vomiting. Related Data Home Medications Medication Instructions Recorded Confirmed baclofen 10 mg tablet 10 mg PO TID PRN Pain 12/21/23 02/15/24 fluoxetine 20 mg capsule 20 mg PO DAILY 12/21/23 02/15/24 ondansetron HCl 8 mg tablet 8 mg PO TID PRN Nausea 12/21/23 02/15/24 topiramate 100 mg tablet 100 mg PO DAILY 12/21/23 02/15/24 trazodone 100 mg tablet 100 - 200 mg PO BEDTIME 12/21/23 02/15/24 Previous Rx's Medication Instructions Recorded albuterol sulfate 90 mcg/actuation 1 inh inhalation QID PRN shortness 07/19/23 aerosol inhaler of breath or wheezing #8.5 grams folic acid 1 mg tablet 1 mg PO DAILY 30 days #30 tabs 10/10/23 buspirone 7.5 mg tablet 7.5 mg PO BID 2 weeks #28 tabs 11/21/23 thiamine mononitrate (vit B1) 100 100 mg PO DAILY 30 days #30 tabs 12/24/23 mg tablet (Vitamin B-1 (mononitrate)) albuterol sulfate 90 mcg/actuation 2 inh inhalation Q4H PRN shortness 02/15/24 aerosol inhaler of breath or wheezing #6.7 grams azithromycin 500 mg tablet 500 mg PO DAILY 5 days #5 tabs 02/15/24 (Zithromax) budesonide-formoterol HFA 160 1 puff inhalation BID #10.2 grams 02/15/24 mcg-4.5 mcg/actuation aerosol inhaler (Symbicort) promethazine-DM 6.25 mg-15 mg/5 mL 10 ml PO Q6H PRN cough #473 mL 02/15/24 oral syrup Allergies Allergy/AdvReac Type Severity Reaction Status Date / Time venom-wasp Allergy Severe ALGY-Anaphy Verified 02/15/24 15:11 laxis Sulfa (Sulfonamide Allergy Intermediate Hives Verified 02/15/24 15:11 Antibiotics) aspirin Allergy Unknown Unknown Verified 02/15/24 15:11 Cephalosporins Allergy Unknown Unknown Verified 02/15/24 15:11 NSAIDS (Non-Steroidal Allergy Unknown Unknown Verified 02/15/24 15:11 Anti-Inflamma sumatriptan [From Imitrex] Allergy Unknown Unknown Verified 02/15/24 15:11 acetaminophen [From Tylenol] Allergy Unknown Verified 02/15/24 15:11 ibuprofen Allergy UNKNOWN Verified 02/15/24 15:11 [From NeoProfen (ibuprofen lysn)(PF)] metoclopramide [From Reglan] Allergy ALGY-Joint Verified 02/15/24 15:11 Pain bupropion [From Wellbutrin] AdvReac Intermediate ALGY-Rash Verified 02/15/24 15:11 prednisone AdvReac Intermediate Heart rate Verified 02/15/24 15:11 was heavy. [place] sick. Review of Systems General: Reports: 10 or more systems reviewed and unremarkable except in HPI and below PFSH ED PFSH: Medical History PTSD (post-traumatic stress disorder) Suicidal ideation Cannabis dependence, episodic use Major depressive disorder, recurrent, severe with psychotic symptoms Nicotine dependence due to vaping tobacco product Vaping nicotine Chronic post-traumatic stress disorder Alcohol use disorder, severe, dependence Psychiatric care Uncontrolled type 2 diabetes with neuropathy Sacroiliitis H/O Belkys-Valenzuela syndrome (~07/2019) EGD at [facility]. EGD 10/26 negative. Chronic back pain Congestive heart failure Diabetes mellitus MONTANO (nonalcoholic steatohepatitis) Borderline personality disorder Bilateral primary osteoarthritis of hip Surgical History History of hysterectomy History of esophagogastroduodenoscopy H/O colonoscopy H/O cervical spine surgery Family History Son Suicide September 2019 Other Cancer Hypertension Psychiatric illness Social History Smoking and tobacco/nicotine status: current every day tobacco/nicotine user cigarettes [ Other cigarette details: When vape breaks she returns to cigarettes] and e-cigarettes E-Cigarette Details: vaporizer device and with nicotine E-cig/vape details: 6000 puffs in each device, uses 3 per month Quit status (tobacco/nicotine): not considering quitting Second hand smoke exposure: Yes Alcohol intake: current Alcohol intake frequency: few times a month Alcohol type: hard liquor Substance/Drug Use: current Substance/Drug use frequency: daily Other substance/drug use details: medical card Adopted: No Caregiver/support person: Yes (cleans and runs errands) Lives independently: Yes Household members: none Housing: Apartment Marital status: Single Number of children: 2 Number of grandchildren: 0 Highest education level completed: Associate Degree: Occupational, Technical, Vocational Program Education level details: [employer] service: No Current occupational status: disabled Current occupational exposures/hazards: No Pets and animals: Yes Pets & animals: cat(s) Leisure activites: music, games and other Leisure activities details: watch a lot of movies Sexually active: No Do you think of yourself as: Straight/Heterosexual Current gender identity: Female Aparna/Tenriism: L[employer]-Day Special [place] needs: No Agree to transfusion: Yes Female Reproductive History: Para: 2 Spontaneous abortions: Yes (10) Physical Exam Const: COMMON NORMALS: no acute distress, patient oriented x3 and no limitations GENERAL APPEARANCE: cooperative and comfortable HENMT: COMMON NORMALS: Normal nasal mucous membranes and turbinates present, moist oral mucous membranes and oropharynx normal NOSE: Normal nasal mucous membranes and turbinates present OTHER: Contusion right forehead. Eye: COMMON NORMALS: Equal, round and reactive pupils present, EOMs intact bilaterally and conjunctivae normal GENERAL EYE: appearance normal, both eyes and all related structures CONJUNCTIVA: Yes conjunctivae normal PUPIL: Yes Equal, round and reactive pupils present Neck/C-Spine: COMMON NORMALS: supple and no JVD Chest: COMMONS NORMALS: normal inspection of the chest Resp: COMMON NORMALS: normal respiratory effort and clear to auscultation bilaterally AUSCULTATION: clear to auscultation bilaterally Cardio: COMMON NORMALS: no JVD, regular rate, regular rhythm, No gallops present (Cardio), No murmurs present (Cardio) and No rub (Cardio) RATE: regular rate RHYTHM: regular rhythm GI: COMMON NORMALS: Normal to inspection, nondistended, normoactive bowel sounds present, Soft to palpation and non-tender AUSCULTATION: Yes normoactive bowel sounds PALPATION: Yes Soft to palpation : COMMON NORMALS: Yes no CVA tenderness BLADDER/KIDNEY EXAM: Yes no CVA tenderness Back/Pelvis: COMMON NORMALS: no CVA tenderness and thoracic and lumbar spine normal to inspection Extremity: COMMON NORMALS: normal to inspection Neuro: COMMON NORMALS: patient oriented x3 and CN's II-XII intact bilaterally Psych: COMMON NORMALS: mental status grossly normal, Normal thought process present and cooperative THOUGHT PROCESS: Normal thought process present Skin: COMMON NORMALS: no rashes or lesions noted, turgor normal and no jaundice GENERAL SKIN EXAM: no rashes or lesions noted and turgor normal Course Vital Signs: Vital signs: Vital Signs Temperature 98.3 F 02/24/24 18:06 Pulse Rate 78 02/24/24 19:22 Respiratory Rate 16 02/24/24 19:22 Blood Pressure 109/77 02/24/24 19:22 Pulse Oximetry 97 02/24/24 19:22 Oxygen Delivery Me thod Room Air 02/24/24 18:33 MDM - Head Injury Medcial Decision Making Head CT was normal. Patient was given injection of morphine for her pain. She was discharged in stable condition with her ex-. Recommended ice to the contusion 3-4 times per day for 15 to 20 minutes each time. XR interpretation done by ED provider, pending radiology final review Discharge Plan Discharge Patient Disposition: Home Clinical Impression: Closed head injury Qualifiers: Encounter type: initial encounter Qualified Code(s): S09.90XA - Unspecified injury of head, initial encounter Condition: Stable Prescriptions: No Action buspirone 7.5 mg tablet 7.5 mg PO BID 14 Days Qty: 28 0RF albuterol sulfate 90 mcg/actuation HFA aerosol inhaler 1 inh inhalation QID PRN (Reason: shortness of breath or wheezing) Qty: 8.5 0RF azithromycin [Zithromax] 500 mg tablet 500 mg PO DAILY 5 Days Qty: 5 0RF promethazine-DM 6.25-15 mg/5 mL syrup 10 ml PO Q6H PRN (Reason: cough) Qty: 473 0RF albuterol sulfate 90 mcg/actuation HFA aerosol inhaler 2 inh inhalation Q4H PRN (Reason: shortness of breath or wheezing) Qty: 6.7 0RF budesonide-formoterol [Symbicort] 160-4.5 mcg/actuation HFA aerosol inhaler 1 puff inhalation BID Qty: 10.2 1RF folic acid 1 mg Tablet 1 mg PO DAILY 30 Days Qty: 30 1RF ondansetron HCl 8 mg tablet 8 mg PO TID PRN (Reason: Nausea) trazodone 100 mg tablet 100 - 200 mg PO BEDTIME baclofen 10 mg tablet 10 mg PO TID PRN (Reason: Pain) topiramate 100 mg tablet 100 mg PO DAILY fluoxetine 20 mg capsule 20 mg PO DAILY Vitamin B-1 (mononitrate) 100 mg Tablet 100 mg PO DAILY 30 Days Qty: 30 1RF Discharge Orders: Discharge ED (Routine); Ordered 02/24/24 Ordered By: Anupam Sanchez Referrals: Tam Del Valle MD [Primary Care Provider] - Patient Instructions: Head Injury (DC), Pain Management Coding Level of Care Code ED Development Disability Specialist for Rober Arellano
== END 2024-02-24 19:23 | disposition home or self-care (01) ==
PROVIDERS: Emergency Provider Emergency Medicine; PCP Family Medicine
DX: S09.8XXA Other specified injuries of head, initial encounter (principal); F17.290 Nicotine dependence, other tobacco product, uncomplicated; W19.XXXA Unspecified fall, initial encounter; E11.9 Type 2 diabetes mellitus without complications; I50.9 Heart failure, unspecified
CPT/HCPCS: 70450; 96372; 99284; J2270; Q0162

== ENCOUNTER 2024-03-19 01:24 | Emergency (ER) | payer MEDICARE, MEDICAID, SELFPAY ==
[2023-06-26 14:03] VITALS: BP 147/78; BMI 37.0
[2024-03-19] VITALS (10 sets, daily range): BP systolic 99–120; BP diastolic 56–76; PULSE 68–79; RESP 16–18; TEMP 37.3; O2SAT 92–99; BMI 32.3
--- NOTE | 2024-03-19 02:01 | XRR_ITS ---
PROCEDURE INFORMATION: Exam: XR Lumbosacral Spine Exam date and time: 03/19/2024 2:31 AM Age: 58 years old Clinical indication: Injury or trauma; Fall; Blunt trauma (contusions or hematomas); Prior surgery; Surgery date: 6+ months; Surgery type: Lumbar and cervical; Additional info: Fall pain, HX of back surgeries TECHNIQUE: Imaging protocol: Radiologic exam of the lumbosacral spine. Views: 2 or 3 views. COMPARISON: CR XR lumbar spine 2-3V* [id number] 06/15/2021 5:40 PM FINDINGS: Bones/joints: Posterior lumbosacral spinal fusion construct is seen. There is mild periarticular lucencies about the superior most pedicle screws suggesting possible loosening. Scattered degenerative change throughout the visualized osseous structures. Diffuse demineralization of the visualized osseous structures. Soft tissues: Unremarkable. Organs: Cholecystectomy clips. XR/XR lumbar spine 2-3V* [id number] IMPRESSION: Postsurgical change of the lumbosacral spine with possible loosening of the superior most pedicle screws.
--- NOTE | 2024-03-19 02:01 | XRR_ITS ---
PROCEDURE INFORMATION: Exam: XR Ribs Exam date and time: 03/19/2024 2:21 AM Age: 58 years old Clinical indication: Pain and injury or trauma; Fall; Rib area, bilateral; Blunt trauma; Chest wall pain; Prior surgery; Surgery date: 6+ months; Surgery type: Cervical spine; Additional info: Fall bilat rib pain TECHNIQUE: Imaging protocol: Radiologic exam of the of the ribs. Views: 3 views. Bilateral ribs. COMPARISON: CR XR chest 1V portable [id number] 12/22/2023 5:35 PM FINDINGS: Bones/joints: Anterior and posterior cervical spine fusion hardware. Posterior lumbosacral spinal fusion hardware with lucencies about the superior most pedicle screws. Diffuse demineralization of the visualized osseous structures. Organs: Cholecystectomy clips. Soft tissues: Normal. XR/XR ribs BI mn 4V w CXR1V [id number] IMPRESSION: 1. No displaced rib fractures, if there is continued point tenderness recommend cross-sectional imaging. 2. Possible loosening of the superior most pedicle screws of the posterior spinal fusion hardware of the lumbosacral spine.
--- NOTE | 2024-03-19 02:14 | ED_ITS ---
HPI - Fall General: Chief Complaint: Fall Stated Complaint: FALL Time Seen by Provider: 03/19/24 01:39 History of Present Illness: Patient presents to the ER by EMS with complaints of rib and chest wall pain and hurts to breathe. Also low back pain. He is her from a fall yesterday morning. Patient does admit to drinking alcohol tonight. Patient denies any trauma to her head or loss of consciousness. Related Data Home Medications Medication Instructions Recorded Confirmed baclofen 10 mg tablet 10 mg PO TID PRN Pain 12/21/23 02/15/24 fluoxetine 20 mg capsule 20 mg PO DAILY 12/21/23 02/15/24 ondansetron HCl 8 mg tablet 8 mg PO TID PRN Nausea 12/21/23 02/15/24 topiramate 100 mg tablet 100 mg PO DAILY 12/21/23 02/15/24 trazodone 100 mg tablet 100 - 200 mg PO BEDTIME 12/21/23 02/15/24 Previous Rx's Medication Instructions Recorded albuterol sulfate 90 mcg/actuation 1 inh inhalation QID PRN shortness 07/19/23 aerosol inhaler of breath or wheezing #8.5 grams folic acid 1 mg tablet 1 mg PO DAILY 30 days #30 tabs 10/10/23 buspirone 7.5 mg tablet 7.5 mg PO BID 2 weeks #28 tabs 11/21/23 thiamine mononitrate (vit B1) 100 100 mg PO DAILY 30 days #30 tabs 12/24/23 mg tablet (Vitamin B-1 (mononitrate)) albuterol sulfate 90 mcg/actuation 2 inh inhalation Q4H PRN shortness 02/15/24 aerosol inhaler of breath or wheezing #6.7 grams azithromycin 500 mg tablet 500 mg PO DAILY 5 days #5 tabs 02/15/24 (Zithromax) budesonide-formoterol HFA 160 1 puff inhalation BID #10.2 grams 02/15/24 mcg-4.5 mcg/actuation aerosol inhaler (Symbicort) promethazine-DM 6.25 mg-15 mg/5 mL 10 ml PO Q6H PRN cough #473 mL 02/15/24 oral syrup Allergies Allergy/AdvReac Type Severity Reaction Status Date / Time venom-wasp Allergy Severe ALGY-Anaphy Verified 03/19/24 01:31 laxis Sulfa (Sulfonamide Allergy Intermediate Hives Verified 03/19/24 01:31 Antibiotics) aspirin Allergy Unknown Unknown Verified 03/19/24 01:31 Cephalosporins Allergy Unknown Unknown Verified 03/19/24 01:31 NSAIDS (Non-Steroidal Allergy Unknown Unknown Verified 03/19/24 01:31 Anti-Inflamma sumatriptan [From Imitrex] Allergy Unknown Unknown Verified 03/19/24 01:31 acetaminophen [From Tylenol] Allergy Unknown Verified 03/19/24 01:31 ibuprofen Allergy UNKNOWN Verified 03/19/24 01:31 [From NeoProfen (ibuprofen lysn)(PF)] metoclopramide [From Reglan] Allergy ALGY-Joint Verified 03/19/24 01:31 Pain bupropion [From Wellbutrin] AdvReac Intermediate ALGY-Rash Verified 03/19/24 01:31 prednisone AdvReac Intermediate Heart rate Verified 03/19/24 01:31 was heavy. [place] sick. Review of Systems General: Reports: 10 or more systems reviewed and unremarkable except in HPI and below PFSH ED PFSH: Medical History PTSD (post-traumatic stress disorder) Suicidal ideation Cannabis dependence, episodic use Major depressive disorder, recurrent, severe with psychotic symptoms Nicotine dependence due to vaping tobacco product Vaping nicotine Chronic post-traumatic stress disorder Alcohol use disorder, severe, dependence Psychiatric care Uncontrolled type 2 diabetes with neuropathy Sacroiliitis H/O Belkys-Valenzuela syndrome (~07/2019) EGD at [facility]. EGD 10/26 negative. Chronic back pain Congestive heart failure Diabetes mellitus MONTANO (nonalcoholic steatohepatitis) Borderline personality disorder Bilateral primary osteoarthritis of hip Surgical History History of hysterectomy History of esophagogastroduodenoscopy H/O colonoscopy H/O cervical spine surgery Family History Son Suicide September 2019 Other Cancer Hypertension Psychiatric illness Social History Smoking and tobacco/nicotine status: current every day tobacco/nicotine user cigarettes [ Other cigarette details: When vape breaks she returns to cigarettes] and e-cigarettes E-Cigarette Details: vaporizer device and with nicotine E-cig/vape details: 6000 puffs in each device, uses 3 per month Quit status (tobacco/nicotine): not considering quitting Second hand smoke exposure: Yes Alcohol intake: current Alcohol intake frequency: few times a month Alcohol type: hard liquor Substance/Drug Use: current Substance/Drug use frequency: daily Other substance/drug use details: medical card Adopted: No Caregiver/support person: Yes (cleans and runs errands) Lives independently: Yes Household members: none Housing: Apartment Marital status: Single Number of children: 2 Number of grandchildren: 0 Highest education level completed: Associate Degree: Occupational, Technical, Vocational Program Education level details: [employer] service: No Current occupational status: disabled Current occupational exposures/hazards: No Pets and animals: Yes Pets & animals: cat(s) Leisure activites: music, games and other Leisure activities details: watch a lot of movies Sexually active: No Do you think of yourself as: Straight/Heterosexual Current gender identity: Female Aparna/Religious: Congregation Special aparna needs: No Agree to transfusion: Yes Female Reproductive History: Para: 2 Spontaneous abortions: Yes (10) Physical Exam Const: COMMON NORMALS: no acute distress, average body habitus, patient oriented x3, no limitations, healthy appearing, alert and well nourished HENMT: COMMON NORMALS: normocephalic, atraumatic, hearing grossly normal bilaterally, external ears normal, Normal external nose present and moist oral mucous membranes HEAD & SCALP: normocephalic and atraumatic NOSE: Normal external nose present EXTERNAL EAR: Yes external ears normal Neck/C-Spine: COMMON NORMALS: full ROM, no lymphadenopathy, supple, no meningeal signs, no JVD and Thyroid normal THYROID: Thyroid normal Chest: COMMONS NORMALS: normal inspection of the chest; negative for normal palpation of entire chest wall (Diffuse tenderness across anterior chest wall) Resp: COMMON NORMALS: normal respiratory effort, No retractions, No use of accessory muscles and clear to auscultation bilaterally AUSCULTATION: clear to auscultation bilaterally Cardio: COMMON NORMALS: no JVD, regular rate, regular rhythm, S1 normal heart sound present, S2 normal heart sound present, No gallops present (Cardio), No clicks present (Cardio), No murmurs present (Cardio) and No rub (Cardio) RATE: regular rate RHYTHM: regular rhythm HEART SOUNDS: S1 normal heart sound present and S2 normal heart sound present GI: COMMON NORMALS: Normal to inspection, nondistended, normoactive bowel sounds present, Soft to palpation, non-tender, No hepatosplenomegaly present and no masses PALPATION: Yes Soft to palpation and Yes No hepatosplenomegaly present Neuro: COMMON NORMALS: patient oriented x3 SENSORIUM/ORIENTATION: Yes alert MENINGEAL SIGNS: Yes no meningeal signs Course Vital Signs: Vital signs: Vital Signs Temperature 99.1 F 03/19/24 01:26 Pulse Rate 79 03/19/24 03:30 Respiratory Rate 16 03/19/24 03:29 Blood Pressure 119/76 03/19/24 03:30 Pulse Oximetry 92 03/19/24 03:30 Oxygen Delivery Me thod Room Air 03/19/24 01:26 MDM - Fall Medical Decision Making X-ray of ribs with chest and lumbar spine showed no acute changes. Patient was given 80 mg morphine and 30 mg Toradol IV for pain. Patient will be discharged home. Medical Records I reviewed the patient's medical records. Lab Data I reviewed the patient's lab results. Radiology Impressions Lumbar Spine X-Ray 03/19/24 02:01 IMPRESSION: Postsurgical change of the lumbosacral spine with possible loosening of the superior most pedicle screws. Ribs w/Chest X-Ray 03/19/24 02:01 IMPRESSION: 1. No displaced rib fractures, if there is continued point tenderness recommend cross-sectional imaging. 2. Possible loosening of the superior most pedicle screws of the posterior spinal fusion hardware of the lumbosacral spine. All radiology interpretation(s) finalized by discharge Discharge Plan Discharge Patient Disposition: Home Clinical Impression: Fall, Musculoskeletal pain Condition: Stable Prescriptions: No Action buspirone 7.5 mg tablet 7.5 mg PO BID 14 Days Qty: 28 0RF albuterol sulfate 90 mcg/actuation HFA aerosol inhaler 1 inh inhalation QID PRN (Reason: shortness of breath or wheezing) Qty: 8.5 0RF azithromycin [Zithromax] 500 mg tablet 500 mg PO DAILY 5 Days Qty: 5 0RF promethazine-DM 6.25-15 mg/5 mL syrup 10 ml PO Q6H PRN (Reason: cough) Qty: 473 0RF albuterol sulfate 90 mcg/actuation HFA aerosol inhaler 2 inh inhalation Q4H PRN (Reason: shortness of breath or wheezing) Qty: 6.7 0RF budesonide-formoterol [Symbicort] 160-4.5 mcg/actuation HFA aerosol inhaler 1 puff inhalation BID Qty: 10.2 1RF folic acid 1 mg Tablet 1 mg PO DAILY 30 Days Qty: 30 1RF ondansetron HCl 8 mg tablet 8 mg PO TID PRN (Reason: Nausea) trazodone 100 mg tablet 100 - 200 mg PO BEDTIME baclofen 10 mg tablet 10 mg PO TID PRN (Reason: Pain) topiramate 100 mg tablet 100 mg PO DAILY fluoxetine 20 mg capsule 20 mg PO DAILY Vitamin B-1 (mononitrate) 100 mg Tablet 100 mg PO DAILY 30 Days Qty: 30 1RF Discharge Orders: Discharge ED (Routine); Ordered 03/19/24 Ordered By: Christ Frazier Patient Instructions: Musculoskeletal Pain (ED) Activity Restrictions/Additional Instructions: The x-rays of your chest, ribs, and lumbar spine showed no acute evidence of fracture. It is felt you have musculoskeletal pain. Please follow-up with your family practice physician for further evaluation and treatment of this pain. Coding Level of Care Code ED Revenue Manager for Rober Arellano
[2024-03-19] MEDS: ondansetron 2 mg/ML SDV 2 mL 4 MG IVP (02:43)
[2024-03-19] MEDS: morphine 4 mg/mL SDV 1 mL IVP ×2 (02:44→03:29)
[2024-03-19] MEDS: oxyCODONE 5 mg IR Tab/Cap PO (05:42)
== END 2024-03-19 05:43 | disposition home or self-care (01) ==
PROVIDERS: Emergency Provider Emergency Medicine
DX: M79.18 Myalgia, other site (principal); F17.290 Nicotine dependence, other tobacco product, uncomplicated; F17.210 Nicotine dependence, cigarettes, uncomplicated; E11.40 Type 2 diabetes mellitus with diabetic neuropathy, unspecified; I50.9 Heart failure, unspecified
CPT/HCPCS: 36415; 71111; 72100; 96374; 96375; 96376; 99284; J2270; J2405

== ENCOUNTER 2024-03-20 10:45 | Emergency (ER) | payer MEDICARE, MEDICAID, SELFPAY ==
[2023-06-26 14:03] VITALS: BP 147/78; BMI 37.0
[2024-03-20 10:46] VITALS: BP 132/68; PULSE 72; RESP 24; TEMP 36.8; O2SAT 99
--- NOTE | 2024-03-20 10:50 | CT_ITS ---
WS: [id number] CT chest wo con [id number] HISTORY: Traumatic chest pain TECHNIQUE: Axial imaging performed through the thorax. Coronal and sagittal reformats are submitted. All CT scans at [facility] use at least one of these dose optimization techniques: automated exposure control; mA and/or kV adjustment per patient size (includes targeted exams where dose is mat ched to clinical indication); or iterative reconstruction. CONTRAST: Omnipaque 350; 100 mL IV. DLP: 536.25 mGy.cm COMPARISON: 10/29/2019 Lungs and central airway: Lungs are well expanded. 3 mm noncalcified nodule stable since 2019 LEFT lo wer lobe. No areas of pulmonary contusion or laceration. No pneumothorax. Pleura: Normal. No pleural effusion. Heart and pericardium: Normal size heart with no pericardial effusion. Mediastinum and charissa: Hilar regions are difficult to evaluate without IV contrast. Configuration is s imilar to 2020. Vessels: Minimal atherosclerotic plaque thoracic aorta. Chest wall and lower neck: There is a very minimal amount of fat stranding in the anterior upper thor ax, bilateral. This may be the site of prior trauma. No skin laceration or hematoma. Upper abdomen: Prior cholecystectomy. Osseous structures: No sternal fracture is identified. There are bilateral anterior healed rib fractu res involving the third ribs. These do not appear to be acute fractures. No acute fracture identified . Prior cervical and lumbar fusion. CT/CT chest wo con [id number] IMPRESSION: 1. No pulmonary contusion or laceration. No pneumothorax. 2. Nonacute anterior third rib fractures. 3. Minimal stranding in the subcutaneous fat over the upper thorax. LEFT great er than RIGHT. Hematoma. This may be the site of the recent trauma. 4. No pleural effusions.
--- NOTE | 2024-03-20 10:54 | XR_ITS ---
WS: [id number] Exam: XR knee RT 3V* [id number] Date/Time of Exam: 03/20/2024 10:54 AM Reason For Exam: fall, knee pain and swelling No acute fracture. Slight degenerative narrowing of the medial joint compartment. No joint effusion. Unremarkable soft tissues. XR/XR knee RT 3V* [id number] IMPRESSION: 1. Mild DJD. No fracture.
--- NOTE | 2024-03-20 10:55 | ED_ITS ---
HPI - Fall General: Chief Complaint: Fall Stated Complaint: cp Time Seen by Provider: 03/20/24 10:46 History of Present Illness: 58-year-old female with a history of PTS D, alcohol use disorder, depression, congestive heart failure, chronic back pain, borderline personality disorder and diabetes who presents to the emergency room by ambulance with traumatic chest pain. She had a fall several days ago. She was seen in the emergency room yesterday and a chest x-ray revealed no obvious fractures or pneumo. She is continue to have severe pain. It is episodic. It is worse with inspiration. She has bruising on her chest. She also has a swollen bruised right knee. She request an x-ray for that. No altered mental status. No focal motor deficits. No head injuries. She had no loss of consciousness at the time of the injury. Related Data Previous Rx's Medication Instructions Recorded hydrocodone 5 mg-acetaminophen 325 1 tab PO Q8H PRN pain #14 tabs 03/20/24 mg tablet polyethylene glycol 3350 17 17 g PO DAILY #510 grams 03/20/24 gram/dose oral powder (Miralax) Allergies Allergy/AdvReac Type Severity Reaction Status Date / Time venom-wasp Allergy Severe ALGY-Anaphy Verified 03/19/24 01:31 laxis Sulfa (Sulfonamide Allergy Intermediate Hives Verified 03/19/24 01:31 Antibiotics) aspirin Allergy Unknown Unknown Verified 03/19/24 01:31 Cephalosporins Allergy Unknown Unknown Verified 03/19/24 01:31 NSAIDS (Non-Steroidal Allergy Unknown Unknown Verified 03/19/24 01:31 Anti-Inflamma sumatriptan [From Imitrex] Allergy Unknown Unknown Verified 03/19/24 01:31 ibuprofen Allergy UNKNOWN Verified 03/19/24 01:31 [From NeoProfen (ibuprofen lysn)(PF)] metoclopramide [From Reglan] Allergy ALGY-Joint Verified 03/19/24 01:31 Pain bupropion [From Wellbutrin] AdvReac Intermediate ALGY-Rash Verified 03/19/24 01:31 prednisone AdvReac Intermediate Heart rate Verified 03/19/24 01:31 was heavy. [place] sick. Review of Systems Narrative: Constitutional symptoms: Negative except as documented in HPI. Skin symptoms: Negative except as documented in HPI. Eye symptoms: Negative except as documented in HPI. ENMT symptoms: Negative except as documented in HPI. Respiratory symptoms: Negative except as documented in HPI. Cardiovascular symptoms: Negative except as documented in HPI. Gastrointestinal symptoms: Negative except as documented in HPI. Genitourinary symptoms: Negative except as documented in HPI. Musculoskeletal symptoms: Negative except as documented in HPI. Neurologic symptoms: Negative except as documented in HPI. Psychiatric symptoms: Negative except as documented in HPI. Endocrine symptoms: Negative except as documented in HPI. PFSH ED PFSH: Medical History PTSD (post-traumatic stress disorder) Suicidal ideation Cannabis dependence, episodic use Major depressive disorder, recurrent, severe with psychotic symptoms Nicotine dependence due to vaping tobacco product Vaping nicotine Chronic post-traumatic stress disorder Alcohol use disorder, severe, dependence Psychiatric care Uncontrolled type 2 diabetes with neuropathy Sacroiliitis H/O Belkys-Valenzuela syndrome (~07/2019) EGD at [facility]. EGD 10/26 negative. Chronic back pain Congestive heart failure Diabetes mellitus MONTANO (nonalcoholic steatohepatitis) Borderline personality disorder Bilateral primary osteoarthritis of hip Surgical History History of hysterectomy History of esophagogastroduodenoscopy H/O colonoscopy H/O cervical spine surgery Family History Son Suicide September 2019 Other Cancer Hypertension Psychiatric illness Social History Smoking and tobacco/nicotine status: current every day tobacco/nicotine user cigarettes [ Other cigarette details: When vape breaks she returns to cigarettes] and e-cigarettes E-Cigarette Details: vaporizer device and with nicotine E-cig/vape details: 6000 puffs in each device, uses 3 per month Quit status (tobacco/nicotine): not considering quitting Second hand smoke exposure: Yes Alcohol intake: current Alcohol intake frequency: few times a month Alcohol type: hard liquor Substance/Drug Use: current Substance/Drug use frequency: daily Other substance/drug use details: medical card Adopted: No Caregiver/support person: Yes (cleans and runs errands) Lives independently: Yes Household members: none Housing: Apartment Marital status: Single Number of children: 2 Number of grandchildren: 0 Highest education level completed: Associate Degree: Occupational, Technical, Vocational Program Education level details: [facility] service: No Current occupational status: disabled Current occupational exposures/hazards: No Pets and animals: Yes Pets & animals: cat(s) Leisure activites: music, games and other Leisure activities details: watch a lot of movies Sexually active: No Do you think of yourself as: Straight/Heterosexual Current gender identity: Female Paarna/Voodoo: Presybeterian Special aparna needs: No Agree to transfusion: Yes Female Reproductive History: Para: 2 Spontaneous abortions: Yes (10) Physical Exam Narrative: EXAM NARRATIVE: General: Alert Skin: Warm, dry. Head: Normocephalic, atraumatic. Neck: Supple, trachea midline. Eye: Extraocular movements are intact. Ears, nose, mouth and throat: mucosa moist. Cardiovascular: Regular, Normal peripheral perfusion. Respiratory: Lungs are clear to auscultation, respirations are non-labored, breath sounds are equal, Symmetrical chest wall expansion. Diffuse anterior chest wall tenderness to palpation. She has large bruises over the chest bilaterally. Gastrointestinal: Soft, Nontender, Non distended Musculoskeletal: Effusion around the right knee with large amount of bruising. No obvious deformity. Neurological: Alert and oriented, No focal neurological deficit observed. Psychiatric: Cooperative, tearful at times Course Vital Signs: Vital signs: Vital Signs Temperature 98.3 F 03/20/24 10:46 Pulse Rate 72 03/20/24 10:46 Respiratory Rate 24 H 03/20/24 10:46 Blood Pressure 132/68 03/20/24 10:46 Pulse Oximetry 99 03/20/24 10:46 Oxygen Delivery Me thod Room Air 03/20/24 10:46 MDM - Fall Medical Decision Making CT of chest without contrast: No pulmonary contusion or laceration. No pneumothorax. No acute rib fractures although there are some old fractures. That are healed. Bruising is seen on imaging. This was reviewed and interpreted by myself the emergency room physician. I also reviewed the radiology report. X-ray of the right knee: No acute fractures. This was reviewed and interpreted by myself the emergency room physician. I also reviewed the radiology report. Assessment and plan: Chest contusion Knee injury ?[place] in the emergency room. - Discharged home - Discussed plan with patient. Answered any questions. - Evaluation and treatment of this problem were appropriate in the emergency setting. Lab Data Radiology Impressions Chest CT 03/20/24 10:50 IMPRESSION: 1. No pulmonary contusion or laceration. No pneumothorax. 2. Nonacute anterior third rib fractures. 3. Minimal stranding in the subcutaneous fat over the upper thorax. LEFT greater than RIGHT. Hematoma. This may be the site of the recent trauma. 4. No pleural effusions. Knee X-Ray 03/20/24 10:54 IMPRESSION: 1. Mild DJD. No fracture. All radiology interpretation(s) finalized by discharge Discharge Plan Discharge Patient Disposition: Home Clinical Impression: Chest wall contusion, Knee injury Condition: Stable Prescriptions: New hydrocodone-acetaminophen 5-325 mg tablet 1 tab PO Q8H PRN (Reason: pain) Qty: 14 0RF Rx Instructions: Take 1/2 to 1 tab every 8 hours as needed for pain polyethylene glycol 3350 [Miralax] 17 gram/dose powder 17 g PO DAILY Qty: 510 0RF Rx Instructions: Take 1 scoop daily while taking pain medications. Discharge Orders: Discharge ED (Routine); Ordered 03/20/24 Ordered By: Mary Hendrickson Discharge Diet: Usual diet Discharge Activity: Increase activity as tolerated Patient Instructions: Opioid Safety, Pain Management Activity Restrictions/Additional Instructions: Thank you for choosing [facility] for your healthcare needs today. Please realize this is an emergency room and that we are providing you with a medical screening exam and this may not be complete and all inclusive of all the testing and or work up that you may need to determine your ailment or severity of your illness. You have been screened and evaluated and felt safe for discharge. Health conditions do change or evolve sometimes and as such it is important that you follow up with your Primary Doctor to be re checked, 3-5 days is a general good time frame for follow up. You are always welcome to return to the ED for re assessment if your symptoms are worsening or you have new concerns Coding Level of Care Code ED Retail Solar Advisor for Rober Arellano
[2024-03-20] MEDS: HYDROcodone-acetaminophen 10-325 mg Tablet 1 TAB PO (11:27)
--- NOTE | 2024-03-20 11:55 | ECG_ITS ---
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 Measurements Intervals [place] Rate: 70 P: 45 MT: 156 QRS: 34 QRSD: 82 T: 43 QT: 410 QTc: 444 Interpretive Statements SINUS RHYTHM MINIMAL ST DEPRESSION [0.025+ mV ST DEPRESSION] Compared to ECG 12/20/2023 21:03:36 No significant changes Electronically Signed On 03-21-2024 09:32:28 SOCIAL MEDIA CONTENT SPECIALIST by Joel Garza M.D. [email or web address]
[2024-03-20 12:04] VITALS: BP 115/63; PULSE 68; O2SAT 100
== END 2024-03-20 12:06 | disposition home or self-care (01) ==
PROVIDERS: Emergency Provider Emergency Medicine
DX: S20.219A Contusion of unspecified front wall of thorax, initial encounter (principal); S89.81XA Other specified injuries of right lower leg, initial encounter; W19.XXXA Unspecified fall, initial encounter; E11.40 Type 2 diabetes mellitus with diabetic neuropathy, unspecified; I50.9 Heart failure, unspecified; F17.290 Nicotine dependence, other tobacco product, uncomplicated; F17.210 Nicotine dependence, cigarettes, uncomplicated
CPT/HCPCS: 71250; 73562; 93005; 99284

== ENCOUNTER 2024-03-24 20:57 | Emergency (ER) | payer MEDICARE, MEDICAID, SELFPAY ==
[2023-06-26 14:03] VITALS: BP 147/78; BMI 37.0
[2024-03-24] VITALS (11 sets, daily range): BP systolic 104–144; BP diastolic 43–63; PULSE 74–84; RESP 15–18; TEMP 36.7; O2SAT 98–100; BMI 32.3
--- NOTE | 2024-03-24 21:03 | XRR_ITS ---
PROCEDURE INFORMATION: Exam: XR Chest Exam date and time: 03/24/2024 9:06 PM Age: 58 years old Clinical indication: Shortness of breath; Additional info: SOB TECHNIQUE: Imaging protocol: Radiologic exam of the chest. Views: 1 view. COMPARISON: CT chest wo con [id number] 03/20/2024 11:19 AM FINDINGS: Lungs: Unremarkable. No consolidation. Pleural spaces: Unremarkable. No pleural effusion. No pneumothorax. Heart/Mediastinum: Unremarkable. No cardiomegaly. Vasculature: Unfolding of the thoracic aorta. Bones/joints: Moderate degenerative disease of bilateral acromioclavicular joints. ACDF of the lower cervical spine. XR/XR chest 1V portable [id number] IMPRESSION: No acute cardiopulmonary process.
--- NOTE | 2024-03-24 21:03 | ECG_ITS ---
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 Measurements Intervals [place] Rate: 75 P: 46 LA: 148 QRS: 31 QRSD: 90 T: 4 QT: 375 QTc: 421 Interpretive Statements SINUS RHYTHM LOW QRS VOLTAGE IN PRECORDIAL LEADS [QRS DEFLECTION < 1.0 mV IN CHEST LEADS] NONSPECIFIC T-WAVE ABNORMALITY Compared to ECG 03/20/2024 10:49:53 Low QRS voltage now present T-wave abnormality now present ST (T wave) deviation no longer present Electronically Signed On 03-25-2024 15:11:06 STORE LEADER by Joel Garza M.D. [id number]
--- NOTE | 2024-03-24 21:07 | W.ED.FALL ---
HPI - Fall General: Chief Complaint: Fall Stated Complaint: SOB Time Seen by Provider: 03/24/24 21:04 Source: patient and EMS Mode of arrival: EMS Limitations: no limitations History of Present Illness: 58-year-old female who states she had a fall last Sunday she was seen here and had a CT scan of her chest showed no acute abnormality she states that she has been having pain where she has a contusion she does have a large contusion left side of her chest. She states she took her last hydrocodone this morning the pain is worsened and she is has pain with breathing. She denies any fever she denies any worsening improving factors Associated symptoms-after fall: Reports chest pain; Denies abdominal pain, headache(s) or neck pain Related Data Previous Rx's Medication Instructions Recorded hydrocodone 5 mg-acetaminophen 325 1 tab PO Q8H PRN pain #14 tabs 03/20/24 mg tablet polyethylene glycol 3350 17 17 g PO DAILY #510 grams 03/20/24 gram/dose oral powder (Miralax) hydrocodone 5 mg-acetaminophen 325 1 tab PO Q6H PRN pain #14 tabs 03/24/24 mg tablet Allergies Allergy/AdvReac Type Severity Reaction Status Date / Time venom-wasp Allergy Severe ALGY-Anaphy Verified 03/24/24 21:06 laxis Sulfa (Sulfonamide Allergy Intermediate Hives Verified 03/24/24 21:06 Antibiotics) aspirin Allergy Unknown Unknown Verified 03/24/24 21:06 Cephalosporins Allergy Unknown Unknown Verified 03/24/24 21:06 NSAIDS (Non-Steroidal Allergy Unknown Unknown Verified 03/24/24 21:06 Anti-Inflamma sumatriptan [From Imitrex] Allergy Unknown Unknown Verified 03/24/24 21:06 ibuprofen Allergy UNKNOWN Verified 03/24/24 21:06 [From NeoProfen (ibuprofen lysn)(PF)] metoclopramide [From Reglan] Allergy ALGY-Joint Verified 03/24/24 21:06 Pain bupropion [From Wellbutrin] AdvReac Intermediate ALGY-Rash Verified 03/24/24 21:06 prednisone AdvReac Intermediate Heart rate Verified 03/24/24 21:06 was heavy. Morton sick. Review of Systems Const: Denies: fever(s), chills, body aches or change in appetite ENMT: Denies: throat pain or dental pain Card: Reports: chest pain Resp: Reports: dyspnea GI: Denies: abdominal pain, nausea, vomiting or diarrhea Musc: Denies: neck pain or back pain Skin/Breast: Denies: rash Neuro: Denies: headache(s) PFSH ED PFSH: Medical History PTSD (post-traumatic stress disorder) Suicidal ideation Cannabis dependence, episodic use Major depressive disorder, recurrent, severe with psychotic symptoms Nicotine dependence due to vaping tobacco product Vaping nicotine Chronic post-traumatic stress disorder Alcohol use disorder, severe, dependence Psychiatric care Uncontrolled type 2 diabetes with neuropathy Sacroiliitis H/O Belkys-Valenzuela syndrome (~07/2019) EGD at [facility]. EGD 10/26 negative. Chronic back pain Congestive heart failure Diabetes mellitus MONTANO (nonalcoholic steatohepatitis) Borderline personality disorder Bilateral primary osteoarthritis of hip Surgical History History of hysterectomy History of esophagogastroduodenoscopy H/O colonoscopy H/O cervical spine surgery Family History Son Suicide September 2019 Other Cancer Hypertension Psychiatric illness Social History Smoking and tobacco/nicotine status: current every day tobacco/nicotine user cigarettes [ Other cigarette details: When vape breaks she returns to cigarettes] and e-cigarettes E-Cigarette Details: vaporizer device and with nicotine E-cig/vape details: 6000 puffs in each device, uses 3 per month Quit status (tobacco/nicotine): not considering quitting Second hand smoke exposure: Yes Alcohol intake: current Alcohol intake frequency: few times a month Alcohol type: hard liquor Substance/Drug Use: current Substance/Drug use frequency: daily Other substance/drug use details: medical card Adopted: No Caregiver/support person: Yes (cleans and runs errands) Lives independently: Yes Household members: none Housing: Apartment Marital status: Single Number of children: 2 Number of grandchildren: 0 Highest education level completed: Associate Degree: Occupational, Technical, Vocational Program 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 service: No Current occupational status: disabled Current occupational exposures/hazards: No Pets and animals: Yes Pets & animals: cat(s) Leisure activites: music, games and other Leisure activities details: watch a lot of movies Sexually active: No Do you think of yourself as: Straight/Heterosexual Current gender identity: Female Aparna/Sikh: Roman Catholic Special [place] needs: No Agree to transfusion: Yes Female Reproductive History: Para: 2 Spontaneous abortions: Yes (10) Physical Exam Const: COMMON NORMALS: no acute distress, patient oriented x3 and healthy appearing HENMT: COMMON NORMALS: normocephalic and atraumatic HEAD & SCALP: normocephalic and atraumatic Eye: COMMON NORMALS: conjunctivae normal CONJUNCTIVA: Yes conjunctivae normal Neck/C-Spine: COMMON NORMALS: full ROM and supple Chest: OTHER: Tenderness to left chest wall she does have bruising Resp: COMMON NORMALS: normal respiratory effort, No retractions, No use of accessory muscles and clear to auscultation bilaterally AUSCULTATION: clear to auscultation bilaterally Cardio: COMMON NORMALS: regular rate, regular rhythm and No murmurs present (Cardio) RATE: regular rate RHYTHM: regular rhythm GI: COMMON NORMALS: Normal to inspection, nondistended, normoactive bowel sounds present, Soft to palpation, non-tender and no masses PALPATION: Yes Soft to palpation Extremity: COMMON NORMALS: full ROM NARRATIVE EXTREMITY EXAM: Contusion noted to right knee Neuro: COMMON NORMALS: patient oriented x3, moves all extremities and no focal motor deficits Psych: COMMON NORMALS: mental status grossly normal, Normal thought process present and cooperative THOUGHT PROCESS: Normal thought process present Skin: COMMON NORMALS: no rashes or lesions noted and no wounds GENERAL SKIN EXAM: no rashes or lesions noted Course Vital Signs: Vital signs: Vital Signs Temperature 98.0 F 03/24/24 21:00 Pulse Rate 84 03/24/24 21:45 Respiratory Rate 18 03/24/24 21:00 Blood Pressure 104/44 03/24/24 21:30 Pulse Oximetry 99 03/24/24 21:45 Oxygen Delivery Me thod Room Air 03/24/24 21:00 MDM - Fall Medical Decision Making Patient presents here with pain level dyspnea from her chest wall contusion x-ray here shows no acute abnormalities blood works normal she is stable for discharge follow-up PCP return if worsening. Medical Records I reviewed the patient's medical records. Lab Data I reviewed the patient's lab results. 03/24/24 21:22 03/24/24 21:22 Laboratory Results WBC 3.52 10^3/uL (3.29-11.43) 03/24/24 21: RBC 3.07 10^6/uL (3.85-5.65) L 03/24/24 21:22 Hgb 9.60 g/dL (11.27-16.99) L 03/24/24 21:22 Hct 28.0 % (36-47) L 03/24/24 21:22 MCV 91.2 fl (85-98) 03/24/24 21:22 MCH 31.3 pg (27-33) 03/24/24 21: MCHC 34.3 g/dL (30-55) 03/24/24 21:22 RDW 15.6 % (12.1-15.1) H 03/24/24 21:22 Plt Count 83 10^3/cmm (157-399) L 03/24/24 21:22 MPV 10.0 fL (7.4-10.4) 03/24/24 21:22 Neut % (Auto) 67.0 % 03/24/24 21:22 Lymph % (Auto) 21.9 % 03/24/24 21:22 [place] % (Auto) 9.1 % 03/24/24 21:22 Eos % (Auto) 1.4 % 03/24/24 21:22 Baso % (Auto) 0.3 % 03/24/24 21:22 Neut # (Auto) 2.36 10^3/uL (1.8-7.7) 03/24/24 21:22 Lymph # (Auto) 0.8 10^3/uL (0.8-4.8) 03/24/24 21:22 [place] # (Auto) 0.3 10^3/uL (0.2-0.9) 03/24/24 21:22 Eos # (Auto) 0.1 10^3/uL (0.0-0.8) 03/24/24 21:22 Baso # (Auto) 0.0 10^3/uL (0.0-0.1) 03/24/24 21:22 Nucleated RBC % (auto) 0 % 03/24/24 21:22 Nucleated RBCs # 0.0 /100WBC 03/24/24 21:22 PT 16.10 SECONDS (12.1-14.9) H 03/24/24 21:22 INR 1.25 (0.8-1.2) H 03/24/24 21:22 Sodium 140 mmol/L (136-145) 03/24/24 21:22 Potassium 4.3 mmol/L (3.5-5.1) 03/24/24 21:22 Chloride 103 mmol/L (98-107) 03/24/24 21:22 Carbon Dioxide 27 mmol/L (22-29) 03/24/24 21:22 Anion Gap 14.3 (5-19) 03/24/24 21:22 BUN 7 mg/dL (6-20) 03/24/24 21:22 Creatinine 0.6 mg/dL (0.5-0.9) 03/24/24 21:22 GFR Calculation 103.4 mL/min (90-130) 03/24/24 21:22 Glucose 102 mg/dL (65-115) 03/24/24 21:22 Calculated Osmolality 288 mOsm/kg (285-295) 03/24/24 21:22 Calcium 9.0 mg/dL (8.5-10.5) 03/24/24 21:22 Total Bilirubin 2.7 mg/dL (0.15-1.2) H 03/24/24 21:22 AST 58 U/L (0-32) H 03/24/24 21:22 ALT 29 U/L (0-33) 03/24/24 21:22 Alkaline Phosphatase 171 U/L (35-105) H 03/24/24 21:22 NT-Pro-B Natriuret Pep 79 pg/mL (0-125) 03/24/24 21:22 Total Protein 6.0 g/dL (6.6-8.7) L 03/24/24 21:22 Albumin 3.4 g/dL (3.5-5.2) L 03/24/24 21:22 Globulin 2.6 g/dL (1.3-4.6) 03/24/24 21:22 XR interpretation done by ED provider, pending radiology final review ED provider radiology interpretation(s): Chest x-ray no acute abnormality Discharge Plan Discharge Patient Disposition: Home Clinical Impression: Chest wall contusion, Dyspnea Condition: Stable Prescriptions: New hydrocodone-acetaminophen 5-325 mg tablet 1 tab PO Q6H PRN (Reason: pain) Qty: 14 0RF No Action hydrocodone-acetaminophen 5-325 mg tablet 1 tab PO Q8H PRN (Reason: pain) Qty: 14 0RF Rx Instructions: Take 1/2 to 1 tab every 8 hours as needed for pain polyethylene glycol 3350 [Miralax] 17 gram/dose powder 17 g PO DAILY Qty: 510 0RF Rx Instructions: Take 1 scoop daily while taking pain medications. Discharge Orders: Discharge ED (Routine); Ordered 03/24/24 Ordered By: Carmela Haro Discharge Diet: Advance as tolerated Discharge Activity: Resume usual activity Patient Instructions: Dyspnea (ED), Chest Contusion (ED) Coding Level of Care Code ED Credit Support Counselor for Rober Arellano
[2024-03-24 21:32] LABS: Basophils % 0.3 %; Eosinophils # 0.1 10^3/uL (0.0-0.8); Eosinophils % 1.4 %; Lymphocytes # 0.8 10^3/uL (0.8-4.8); Lymphocytes % 21.9 %; Mean Corpuscular HGB Conc 34.3 g/dL (30-55); Mean Corpuscular Hemoglobin 31.3 pg (27-33); Mean Corpuscular Volume 91.2 fl (85-98); Monocytes # 0.3 10^3/uL (0.2-0.9); Monocytes % 9.1 %; Neutrophils # 2.36 10^3/uL (1.8-7.7); Nucleated Red Blood Cells % 0 %; Platelet Count 83 10^3/cmm (157-399); Red Blood Count 3.07 10^6/uL (3.85-5.65); Red Cell Distribution Width 15.6 % (12.1-15.1); White Blood Count 3.52 10^3/uL (3.29-11.43)
[2024-03-24 21:45] LABS: INR 1.25 (0.8-1.2)
[2024-03-24 22:02] LABS: Alanine Aminotransferase 29 U/L (0-33); Albumin Level 3.4 g/dL (3.5-5.2); Alkaline Phosphatase 171 U/L (35-105); Anion Gap 14.3 (5-19); Aspartate Amino Transferase 58 U/L (0-32); Blood Urea Nitrogen 7 mg/dL (6-20); Carbon Dioxide 27 mmol/L (22-29); Chloride 103 mmol/L (98-107); Creatinine Clr Calc Pharmacy 119.9503; Globulin 2.6 g/dL (1.3-4.6); Glomerular Filtration Rate 103.4 mL/min (90-130); Glucose 102 mg/dL (65-115); NT Pro B Type Natriuretic Pept 79 pg/mL (0-125); Osmolality Calculated 288 mOsm/kg (285-295); Potassium 4.3 mmol/L (3.5-5.1); Sodium 140 mmol/L (136-145); Total Bilirubin 2.7 mg/dL (0.15-1.2)
[2024-03-24] MEDS: morphine 4 mg/mL SDV 1 mL IM (22:03)
== END 2024-03-24 23:22 | disposition home or self-care (01) ==
PROVIDERS: Emergency Provider Emergency Medicine
DX: S20.212A Contusion of left front wall of thorax, initial encounter (principal); R06.00 Dyspnea, unspecified; F17.290 Nicotine dependence, other tobacco product, uncomplicated; E11.9 Type 2 diabetes mellitus without complications; I50.9 Heart failure, unspecified; X58.XXXA Exposure to other specified factors, initial encounter
CPT/HCPCS: 36415; 71045; 80053; 83880; 85025; 85610; 93005; 96372; 99285; J2270

== ENCOUNTER 2024-04-04 15:28 | Emergency (ER) | payer MEDICARE, MEDICAID, SELFPAY ==
[2023-06-26 14:03] VITALS: BP 147/78; BMI 37.0
[2024-04-04 15:31] VITALS: BP 139/68; PULSE 92; RESP 20; O2SAT 98
[2024-04-04 15:35] VITALS: TEMP 37.1
--- NOTE | 2024-04-04 15:44 | XRR_ITS ---
PROCEDURE INFORMATION: Exam: XR Right Tibia and Fibula Exam date and time: 04/04/2024 4:33 PM Age: 58 years old Clinical indication: Pain; Lower leg; Right; Additional info: Fall/ecchymosis TECHNIQUE: Imaging protocol: Radiologic exam of the right tibia and fibula. Views: 2 views. COMPARISON: CR XR knee RT 3V* [id number] 03/20/2024 10:58 AM FINDINGS: Bones/joints: No acute fracture or dislocation. The knee and ankle joints are grossly intact. Soft tissues: Mild soft tissue swelling along the anterior aspect of the lower leg. Coarse calcific densities are also seen in the anterior mid lower leg. XR/XR tibia fibula RT 2V [id number] IMPRESSION: 1. No acute osseous findings. 2. Mild soft tissue swelling anteriorly along with coarse calcific densities in the soft tissues which may be from prior trauma.
--- NOTE | 2024-04-04 15:44 | CTR_ITS ---
PROCEDURE INFORMATION: Exam: CT Head Without Contrast Exam date and time: 04/04/2024 4:21 PM Age: 58 years old Clinical indication: Injury or trauma; Fall; Blunt trauma (contusions or hematomas); Without loss of consciousness; Injury date: 04/04/2024 TECHNIQUE: Imaging protocol: Computed tomography of the head without contrast. Radiation optimization: All CT scans at this facility use at least one of these dose optimization techniques: automated exposure control; mA and/or kV adjustment per patient size (includes targeted exams where dose is matched to clinical indication); or iterative reconstruction. COMPARISON: CT head wo con* [id number] 02/24/2024 6:35 PM RADIATION DOSE METRICS: Total DLP (mGy-cm): 1173.9 FINDINGS: Brain: Old lacunar infarct again seen along the left basal ganglia. No hemorrhage. Periventricular and subcortical white matter hypodensities likely represent chronic small vessel ischemic changes. No mass effect. Cerebral ventricles: No ventriculomegaly. Paranasal sinuses: Visualized sinuses are unremarkable. No fluid levels. Mastoid air cells: Visualized mastoid air cells are well aerated. Bones: Unremarkable. No acute fracture. Soft tissues: Near-complete resolution of a previously seen right frontal scalp hematoma. CT/CT head wo con* [id number] IMPRESSION: No acute intracranial findings.
--- NOTE | 2024-04-04 15:44 | XRR_ITS ---
PROCEDURE INFORMATION: Exam: XR Chest Exam date and time: 04/04/2024 4:35 PM Age: 58 years old Clinical indication: Chest wall pain TECHNIQUE: Imaging protocol: Radiologic exam of the chest. Views: 1 view. COMPARISON: CR (CHEST, ) 03/24/2024 9:06 PM FINDINGS: Lungs: Unremarkable. No consolidation. Pleural spaces: Unremarkable. No pleural effusion. No pneumothorax. Heart/Mediastinum: Stable cardiomediastinal silhouette. Bones/joints: ACDF hardware partially imaged. XR/XR chest 1V portable [id number] IMPRESSION: No acute findings.
--- NOTE | 2024-04-04 15:44 | CTR_ITS ---
PROCEDURE INFORMATION: Exam: CT Maxillofacial Without Contrast Exam date and time: 04/04/2024 4:21 PM Age: 58 years old Clinical indication: Injury or trauma; Fall; Blunt trauma (contusions or hematomas); Ocular (eye or eyeball); Right; Injury date: 04/04/2024; Additional info: R periorbital ecchymosis TECHNIQUE: Imaging protocol: Computed tomography of the face without contrast. Radiation optimization: All CT scans at this facility use at least one of these dose optimization techniques: automated exposure control; mA and/or kV adjustment per patient size (includes targeted exams where dose is matched to clinical indication); or iterative reconstruction. COMPARISON: CT head wo con* [id number] 04/04/2024 4:21 PM RADIATION DOSE METRICS: Total DLP (mGy-cm): 514.4 FINDINGS: Paranasal sinuses: No air-fluid levels. Orbital cavities: Orbits are normal. Bilateral lens replacements. Teeth: Patient is edentulous. Bones: Posterior and anterior cervical fusion hardware is partially imaged. Multilevel degenerative changes of the visualized cervical spine. Soft tissues: Small right periorbital contusion. CT/CT facial bones wo con* [id number] IMPRESSION: Small right periorbital contusion. Otherwise no acute findings.
--- NOTE | 2024-04-04 15:45 | ED_ITS ---
HPI - Fall 2 General: Chief Complaint: Fall Stated Complaint: fall Time Seen by Provider: 04/04/24 15:29 Source: patient Mode of arrival: EMS Limitations: no limitations History of Present Illness: Patient is a 58-year-old female who is well-known to our facility here following a fall. Patient states she has a history of neuropathy and left foot drop and because of these disorders, she cannot feel her lower extremities. She states she falls frequently because of this. She states she does not use a walker because (tearfully) states she is not willing to accept this yet. States she fell 2 days ago after tripping and falling on a deck at her significant other's house. Patient does states she struck her head. She states she struck the right side of her face on a 4 x 4. She states she injured her right lower extremity. She also injured her chest wall. Patient has been seen here now 4 times just this month for falls and pains related to her recent falls. She has an extensive PMH. MD complaint: fall Onset (ago): day(s) Fall from: standing Fall witnessed: yes, by family Place fall occurred: home (significant other's place) Loss of consciousness: None Prolonged down time: no Context: tripped/slipped Location of injury: head, face and chest Location of injury - extremities: Right: lower leg Associated symptoms-after fall: Reports no associated symptoms, chest pain and headache(s); Denies abdominal pain, hematuria, lightheadedness or neck pain Related Data Home Medications Medication Instructions Recorded Confirmed albuterol sulfate 90 mcg/actuation 2 puff inhalation Q4H PRN 04/04/24 04/04/24 aerosol inhaler Shortness Of Breath Or Wheezing Allergies Allergy/AdvReac Type Severity Reaction Status Date / Time venom-wasp Allergy Severe ALGY-Anaphy Verified 03/24/24 21:06 laxis Sulfa (Sulfonamide Allergy Intermediate Hives Verified 03/24/24 21:06 Antibiotics) aspirin Allergy Unknown Unknown Verified 03/24/24 21:06 Cephalosporins Allergy Unknown Unknown Verified 03/24/24 21:06 NSAIDS (Non-Steroidal Allergy Unknown Unknown Verified 03/24/24 21:06 Anti-Inflamma sumatriptan [From Imitrex] Allergy Unknown Unknown Verified 03/24/24 21:06 ibuprofen Allergy UNKNOWN Verified 03/24/24 21:06 [From NeoProfen (ibuprofen lysn)(PF)] metoclopramide [From Reglan] Allergy ALGY-Joint Verified 03/24/24 21:06 Pain bupropion [From Wellbutrin] AdvReac Intermediate ALGY-Rash Verified 03/24/24 21:06 prednisone AdvReac Intermediate Heart rate Verified 03/24/24 21:06 was heavy. [place] sick. Review of Systems 2 Eyes: Reports: other (ecchymosis R eye); Denies: change in vision, blurry vision, photophobia, eye discharge, floaters or seeing flashes ENMT: Denies: throat pain, odynophagia, ear or mastoid pain, ear discharge, nasal discharge, epistaxis or sinus pain Card: Reports: chest pain; Denies: palpitations, lightheadedness, syncope or pre-syncope Resp: Denies: dyspnea or pain on inspiration GI: Denies: abdominal pain : Denies: flank pain or hematuria Musc: Reports: extremity pain (R LE) and extremity swelling (R LE); Denies: neck pain, back pain or joint pain Neuro: Reports: headache(s) and sensory changes (chronic); Denies: numbness in extremities, weakness in extremities or dizziness PFSH ED 2 PFSH: Medical History PTSD (post-traumatic stress disorder) Suicidal ideation Cannabis dependence, episodic use Major depressive disorder, recurrent, severe with psychotic symptoms Nicotine dependence due to vaping tobacco product Vaping nicotine Chronic post-traumatic stress disorder Alcohol use disorder, severe, dependence Psychiatric care Uncontrolled type 2 diabetes with neuropathy Sacroiliitis H/O Belkys-Valenzuela syndrome (~07/2019) EGD at [facility]. EGD 10/26 negative. Chronic back pain Congestive heart failure Diabetes mellitus MNOTANO (nonalcoholic steatohepatitis) Borderline personality disorder Bilateral primary osteoarthritis of hip Surgical History History of hysterectomy History of esophagogastroduodenoscopy H/O colonoscopy H/O cervical spine surgery Family History Son Suicide September 2019 Other Cancer Hypertension Psychiatric illness Social History Smoking and tobacco/nicotine status: current every day tobacco/nicotine user cigarettes [ Other cigarette details: When vape breaks she returns to cigarettes] and e-cigarettes E-Cigarette Details: vaporizer device and with nicotine E-cig/vape details: 6000 puffs in each device, uses 3 per month Quit status (tobacco/nicotine): not considering quitting Second hand smoke exposure: Yes Alcohol intake: current Alcohol intake frequency: few times a month Alcohol type: hard liquor Substance/Drug Use: current Substance/Drug use frequency: daily Other substance/drug use details: medical card Adopted: No Caregiver/support person: Yes (cleans and runs errands) Lives independently: Yes Household members: none Housing: Apartment Marital status: Single Number of children: 2 Number of grandchildren: 0 Highest education level completed: Associate Degree: Occupational, Technical, Vocational Program Education level details: [facility] service: No Current occupational status: disabled Current occupational exposures/hazards: No Pets and animals: Yes Pets & animals: cat(s) Leisure activites: music, games and other Leisure activities details: watch a lot of movies Sexually active: No Do you think of yourself as: Straight/Heterosexual Current gender identity: Female Aparna/Pentecostal: Druze Special aparna needs: No Agree to transfusion: Yes Female Reproductive History: Para: 2 Spontaneous abortions: Yes (10) Physical Exam 2 Const: COMMON NORMALS: no acute distress, average body habitus, patient oriented x3, no limitations, healthy appearing, alert and well nourished G ENERAL APPEARANCE: cooperative ORIENTATION/CONSCIOUSNESS: Yes awake, Yes oriented to person, Yes oriented to place and Yes oriented to time HENMT: COMMON NORMALS: normocephalic, atraumatic, TM's normal bilaterally and Normal external nose present HEAD & SCALP: normal to inspection, normocephalic and atraumatic; no Church's sign, no hematoma and no raccoon eyes FACE & SINUS: sinuses nontender and ecchymosis (R periorbital); no edema NOSE: Normal external nose present TYMPANIC MEMBRANE: TM's normal bilaterally MOUTH: other (no intraoral injuries noted) Eye: COMMON NORMALS: Equal, round and reactive pupils present and EOMs intact bilaterally GENERAL EYE: appearance normal, both eyes and all related structures and normal light reflex VISUAL ACUITY: Yes acuity normal A LIGNMENT: Yes alignment normal PERIORBITAL: periorbital findings abnormal positive right periorbital ecchymosis PUPIL: Yes Equal, round and reactive pupils present DIRECT OPHTHALMOSCOPY: Yes normal light reflex Neck/C-Spine: COMMON NORMALS: full ROM GENERAL: Yes normal visual inspection CERVICAL SPINE: Yes cervical ROM normal, No pain with cervical ROM, No Cervical spine tenderness, No step off deformity and No Paracervical muscle tenderness Chest: COMMONS NORMALS: normal inspection of the chest OTHER: TTP L anterior chest wall; no crepitus Resp: COMMON NORMALS: normal respiratory effort and clear to auscultation bilaterally AUSCULTATION: clear to auscultation bilaterally Cardio: COMMON NORMALS: regular rate and regular rhythm RATE: regular rate RHYTHM: regular rhythm GI: COMMON NORMALS: Normal to inspection, nondistended, normoactive bowel sounds present, Soft to palpation, non-tender, No hepatosplenomegaly present and no masses INSPECTION: Yes normal to inspection and No abdominal wall ecchymosis AUSCULTATION: Yes normoactive bowel sounds PALPATION: Yes Soft to palpation and Yes No hepatosplenomegaly present Back/Pelvis: COMMON NORMALS: thoracic and lumbar spine normal to inspection, no thoracic nor lumbar tenderness and thoraco-lumbar ROM normal Extremity: COMMON NORMALS: capillary refill normal, no joint enlargement and no pedal edema GENERAL: Yes normal exam except as noted OTHER: ecchymosis R>L lower extremities; some of which probably old given previous knee injury earlier this month; no significant tenderness; no bony deformity; full ROM of knee; seemingly painless passive ROM of ankle; distal pulses normal; reports chronic decreased sensation Neuro: KAMERON COMA SCALE: document GCS findings [place] coma scale eye opening: Spontaneous Kameron coma scale verbal response: Orientated [place] coma scale motor response: Obey commands Kameron coma scale total score: 15 COMMON NORMALS: patient oriented x3, CN's II-XII intact bilaterally, moves all extremities, no focal motor deficits and no sensory deficits noted S ENSORIUM/ORIENTATION: Yes alert, Yes oriented to person, Yes oriented to place and Yes oriented to time SPEECH: speech normal GAIT: Yes Normal gait present Skin: COMMON NORMALS: no rashes or lesions noted GENERAL SKIN EXAM: no rashes or lesions noted TRAUMA: other (ecchymosis) Course 2 Vital Signs: Vital signs: Vital Signs Temperature 98.8 F 04/04/24 15:35 Pulse Rate 92 12/27/24 15:31 Respiratory Rate 18 04/04/24 15:56 Blood Pressure 139/68 04/04/24 15:31 Pulse Oximetry 98 04/04/24 15:31 Oxygen Delivery Me thod Room Air 04/04/24 15:31 MDM - Fall Medical Decision Making Patient's vital signs are stable. Blood work showing chronic anemia. Her hemoglobin today is 8.4 which is lower than what she has been over the past few months. She is not having any bloody emesis. She denies black or tarry stools. She has a longstanding history of alcohol abuse. She does continue to drink occasionally. She states previously she has had IV iron infusions through our oncology center. Doesn't believe she's ever had a blood transfusion. She has chronic thrombocytopenia. She is not on anticoagulation. Remainder of labs showing chronic hyperbilirubinemia and elevated LFTs. EKG and baseline troponin obtained due to her complaint of chest pain although this was reproducible and more chest wall pain clinically. These are unremarkable. Patient used to see Dr. Del Valle but left his care. She is wanting a new PCP. Recommend she haver her hemoglobin rechecked in 1-2 weeks. Discussed signs/symptoms that should prompt a return evaluation. Discussed etoh cessation. Imaging related to her recent fall obtained here and unremarkable. Medical Records I reviewed the patient's medical records. Lab Data I reviewed the patient's lab results. 04/04/24 15:55 04/04/24 15:[address] 04/04/24 15:44 IMPRESSION: Small right periorbital contusion. Otherwise no acute findings. Head CT 04/04/24 15:44 IMPRESSION: No acute intracranial findings. Laboratory Results WBC 2.57 10^3/uL (3.29-11.43) L 04/04/24 15:55 RBC 2.80 10^6/uL (3.85-5.65) L 04/04/24 15:55 Hgb 8.40 g/dL (11.27-16.99) L 04/04/24 15:55 Hct 25.9 % (36-47) L 04/04/24 15:55 MCV 92.5 fl (85-98) 04/04/24 15:55 MCH 30.0 pg (27-33) 04/04/24 15:55 MCHC 32.4 g/dL (30-55) 04/04/24 15:55 RDW 15.3 % (12.1-15.1) H 04/04/24 15:55 Plt Count 65 10^3/cmm (157-399) L 04/04/24 15:55 MPV 9.9 fL (7.4-10.4) 04/04/24 15:55 Neut % (Auto) 63.5 % 04/04/24 15:55 Lymph % (Auto) 23.7 % 04/04/24 15:55 [place] % (Auto) 9.3 % 04/04/24 15:55 Eos % (Auto) 2.7 % 04/04/24 15:55 Baso % (Auto) 0.4 % 04/04/24 15:55 Neut # (Auto) 1.63 10^3/uL (1.8-7.7) L 04/04/24 15:55 Lymph # (Auto) 0.6 10^3/uL (0.8-4.8) L 04/04/24 15:55 [place] # (Auto) 0.2 10^3/uL (0.2-0.9) 04/04/24 15:55 Eos # (Auto) 0.1 10^3/uL (0.0-0.8) 04/04/24 15:55 Baso # (Auto) 0.0 10^3/uL (0.0-0.1) 04/04/24 15:55 Nucleated RBC % (auto) 0 % 04/04/24 15:55 Nucleated RBCs # 0.0 /100WBC 04/04/24 15:55 Sodium 138 mmol/L (136-145) 04/04/24 15:55 Potassium 3.5 mmol/L (3.5-5.1) 04/04/24 15:55 Chloride 105 mmol/L (98-107) 04/04/24 15:55 Carbon Dioxide 25 mmol/L (22-29) 04/04/24 15:55 Anion Gap 11.5 (5-19) 04/04/24 15:55 BUN 10 mg/dL (6-20) 04/04/24 15:55 Creatinine 0.5 mg/dL (0.5-0.9) 04/04/24 15:55 GFR Calculation 127.6 mL/min (90-130) 04/04/24 15:55 Glucose 86 mg/dL (65-115) 04/04/24 15:55 Calculated Osmolality 284 mOsm/kg (285-295) L 04/04/24 15:55 Calcium 8.2 mg/dL (8.5-10.5) L 04/04/24 15:55 Total Bilirubin 1.7 mg/dL (0.15-1.2) H 04/04/24 15:55 AST 63 U/L (0-32) H 04/04/24 15:55 ALT 27 U/L (0-33) 04/04/24 15:55 Alkaline Phosphatase 277 U/L (35-105) H 04/04/24 15:55 Troponin T Baseline < 6 ng/L (0-10) 04/04/24 15:55 Total Protein 5.7 g/dL (6.6-8.7) L 04/04/24 15:55 Albumin 3.1 g/dL (3.5-5.2) L 04/04/24 15:55 Globulin 2.6 g/dL (1.3-4.6) 04/04/24 15:55 All radiology interpretation(s) finalized by discharge Discharge Plan Discharge Patient Disposition: Home Clinical Impression: Frequent falls, Chest wall pain Anemia Qualifiers: Anemia type: unspecified type Qualified Code(s): D64.9 - Anemia, unspecified Contusion of periorbital region, right Qualifiers: Encounter type: initial encounter Qualified Code(s): S05.11XA - Contusion of eyeball and orbital tissues, right eye, initial encounter Contusion of leg, right Qualifiers: Encounter type: initial encounter Qualified Code(s): S80.11XA - Contusion of right lower leg, initial encounter Condition: Stable Prescriptions: No Action albuterol sulfate 90 mcg/actuation HFA aerosol inhaler 2 puff INHALATION Q4H PRN (Reason: Shortness Of Breath Or Wheezing) Discharge Orders: Discharge ED (Routine); Ordered 04/04/24 Ordered By: Margaret Veras Activity Restrictions/Additional Instructions: As we discussed, imaging related to your recent fall was unremarkable. We did do blood work showing acute on chronic anemia. As we discussed I would like you to follow-up with primary care in the next 1 to 2 weeks to have this rechecked. We discussed alcohol cessation. You need to return to the emergency department for onset of black or tarry stools, lightheadedness/dizziness/passing out episodes, or any other concerns you may have. I would encourage you to ambulate with the help of a walker to prevent any further falls. Coding Level of Care Code ED Administrative Support Coordinator for Rober Arellano
[2024-04-04 15:56] VITALS: RESP 18
[2024-04-04] MEDS: morphine 4 mg/mL SDV 1 mL IM (15:56)
--- NOTE | 2024-04-04 16:09 | ECG_ITS ---
[facility] Test Date: 2024-04-04 Pat Name: Kay Calles Department: Room: Gender: Female English Division Chair: : 1965 Requested By: Margaret Veras Order Number: [id number] Parker MD: Joel Garza M.D. Measurements Intervals [place] Rate: 75 P: 36 MI: 161 QRS: 44 QRSD: 78 T: 52 QT: 419 QTc: 470 Interpretive Statements SINUS RHYTHM Compared to ECG 03/24/2024 21:11:01 T-wave abnormality no longer present Electronically Signed On 04-04-2024 18:37:45 DIEING OUT MACHINE OPERATOR by Joel Garza M.D. [id number]
[2024-04-04 16:21] LABS: Basophils % 0.4 %; Eosinophils # 0.1 10^3/uL (0.0-0.8); Eosinophils % 2.7 %; Hematocrit 25.9 % (36-47); Lymphocytes # 0.6 10^3/uL (0.8-4.8); Lymphocytes % 23.7 %; Mean Corpuscular HGB Conc 32.4 g/dL (30-55); Mean Corpuscular Volume 92.5 fl (85-98); Mean Platelet Volume 9.9 fL (7.4-10.4); Monocytes # 0.2 10^3/uL (0.2-0.9); Monocytes % 9.3 %; Neutrophils # 1.63 10^3/uL (1.8-7.7); Neutrophils % 63.5 %; Nucleated Red Blood Cells % 0 %; Platelet Count 65 10^3/cmm (157-399); Red Cell Distribution Width 15.3 % (12.1-15.1); White Blood Count 2.57 10^3/uL (3.29-11.43)
[2024-04-04 16:39] LABS: Alanine Aminotransferase 27 U/L (0-33); Albumin Level 3.1 g/dL (3.5-5.2); Alkaline Phosphatase 277 U/L (35-105); Anion Gap 11.5 (5-19); Aspartate Amino Transferase 63 U/L (0-32); Blood Urea Nitrogen 10 mg/dL (6-20); Calcium 8.2 mg/dL (8.5-10.5); Carbon Dioxide 25 mmol/L (22-29); Chloride 105 mmol/L (98-107); Creatinine Clr Calc Pharmacy 143.9404; Globulin 2.6 g/dL (1.3-4.6); Glomerular Filtration Rate 127.6 mL/min (90-130); Glucose 86 mg/dL (65-115); Osmolality Calculated 284 mOsm/kg (285-295); Potassium 3.5 mmol/L (3.5-5.1); Sodium 138 mmol/L (136-145); Total Bilirubin 1.7 mg/dL (0.15-1.2); Total Protein 5.7 g/dL (6.6-8.7)
[2024-04-04 16:41] LABS: Troponin(5th) Baseline < 6 ng/L (0-10)
[2024-04-04] MEDS: HYDROcodone-acetaminophen 5-325 mg Tablet 1 TAB PO (17:02)
[2024-04-04 17:38] VITALS: BP 127/48; PULSE 67; RESP 16; O2SAT 98
--- NOTE | 2024-04-07 07:47 | DCPLANNER ---
messaged wpfm for er f/u
== END 2024-04-04 17:40 | disposition home or self-care (01) ==
PROVIDERS: Emergency Provider Physician Assistant
DX: D64.9 Anemia, unspecified (principal); S05.11XA Contusion of eyeball and orbital tissues, right eye, initial encounter; S80.11XA Contusion of right lower leg, initial encounter; W19.XXXA Unspecified fall, initial encounter; R29.6 Repeated falls; R07.89 Other chest pain; F17.290 Nicotine dependence, other tobacco product, uncomplicated; E11.9 Type 2 diabetes mellitus without complications; I50.9 Heart failure, unspecified
CPT/HCPCS: 36415; 70450; 70486; 71045; 73590; 80053; 84484; 85025; 93005; 96372; 99285; J2270

== ENCOUNTER 2024-05-25 18:26 | Inpatient (IN) | payer MEDICARE, MEDICAID, SELFPAY ==
[2023-06-26 14:03] VITALS: BP 147/78; BMI 37.0
[2024-05-25 18:36] VITALS: BP 135/65; PULSE 65; RESP 16; TEMP 36.6; O2SAT 95; BMI 30.2
--- NOTE | 2024-05-25 18:37 | ECG_ITS ---
[facility] Test Date: 2024-05-25 Pat Name: Kay Calles Department: Room: Gender: Female Kinesiology Internship: : 1965 Requested By: Carmela Haro Order Number: [id number] Parker MD: Tom Ford M.D. Measurements Intervals [place] Rate: 58 P: 48 UT: 159 QRS: 50 QRSD: 88 T: 66 QT: 455 QTc: 448 Interpretive Statements SINUS BRADYCARDIA MODERATE ST DEPRESSION [0.05+ mV ST DEPRESSION] Compared to ECG 04/15/2024 17:44:38 ST (T wave) deviation now present Sinus rhythm no longer present Electronically Signed On 05-25-2024 18:49:40 MANAGEMENT LIAISON by Tom Ford M.D. [email or web address] [id number]
--- NOTE | 2024-05-25 18:42 | W.ED.PSYCHS ---
HPI - Psych General: Chief Complaint: Psychiatric Symptoms Stated Complaint: SI Time Seen by Provider: 05/25/24 18:27 Source: patient Mode of arrival: ambulatory Limitations: no limitations History of Present Illness: 59-year-old female who states that she has been having suicidal ideations has been going on over the last few days she states she just feels worthless and has been having thoughts of overdosing on pills she denies any worsening improving factors. Associated symptoms: Reports depression and suicidal ideation Related Data Home Medications ?Medication ?Instructions ?Recorded ?Confirmed albuterol sulfate 90 mcg/actuation 2 puff inhalation Q4H PRN 04/04/24 05/25/24 aerosol inhaler Shortness Of Breath Or Wheezing Allergies Allergy/AdvReac Type Severity Reaction Status Date / Time venom-wasp Allergy Severe ALGY-Anaphy Verified 05/25/24 18:03 laxis Sulfa (Sulfonamide Allergy Intermediate Hives Verified 05/25/24 18:03 Antibiotics) aspirin Allergy Unknown Unknown Verified 05/25/24 18:03 Cephalosporins Allergy Unknown Unknown Verified 05/25/24 18:03 NSAIDS (Non-Steroidal Allergy Unknown Unknown Verified 05/25/24 18:03 Anti-Inflamma sumatriptan (From Imitrex) Allergy Unknown Unknown Verified 05/25/24 18:03 ibuprofen (From NeoProfen Allergy UNKNOWN Verified 05/25/24 18:03 (ibuprofen lysn)(PF)) metoclopramide (From Reglan) Allergy ALGY-Joint Verified 05/25/24 18:03 Pain bupropion (From Wellbutrin) AdvReac Intermediate ALGY-Rash Verified 05/25/24 18:03 prednisone AdvReac Intermediate Heart rate Verified 05/25/24 18:03 was heavy. [place] sick. Review of Systems Const: Denies: fever(s), chills, body aches or change in appetite ENMT: Denies: throat pain or dental pain Card: Denies: chest pain Resp: Denies: dyspnea GI: Denies: abdominal pain, nausea, vomiting or diarrhea Musc: Denies: neck pain or back pain Skin/Breast: Denies: rash Neuro: Denies: headache(s) Psych: Reports: depression and suicidal ideation [facility] ED PFSH: Medical History PTSD (post-traumatic stress disorder) Suicidal ideation Cannabis dependence, episodic use Major depressive disorder, recurrent, severe with psychotic symptoms Nicotine dependence due to vaping tobacco product Vaping nicotine Chronic post-traumatic stress disorder Alcohol use disorder, severe, dependence Psychiatric care Uncontrolled type 2 diabetes with neuropathy Sacroiliitis H/O Belkys-Valenzuela syndrome (~07/2019) EGD at [facility]. EGD 10/26 negative. Chronic back pain Congestive heart failure Diabetes mellitus MONTANO (nonalcoholic steatohepatitis) Borderline personality disorder Bilateral primary osteoarthritis of hip Surgical History History of hysterectomy History of esophagogastroduodenoscopy H/O colonoscopy H/O cervical spine surgery Family History Son Suicide September 2019 Other Cancer Hypertension Psychiatric illness Social History Smoking and tobacco/nicotine status: current every day tobacco/nicotine user cigarettes [ Other cigarette details: When vape breaks she returns to cigarettes] and e-cigarettes E-Cigarette Details: vaporizer device and with nicotine E-cig/vape details: 6000 puffs in each device, uses 3 per month Quit status (tobacco/nicotine): not considering quitting Second hand smoke exposure: Yes Alcohol intake: current Alcohol intake frequency: few times a month Alcohol type: hard liquor Substance/Drug Use: current Substance/Drug use frequency: daily Other substance/drug use details: medical card Adopted: No Caregiver/support person: Yes (cleans and runs errands) Lives independently: Yes Household members: none Housing: Apartment Marital status: Single Number of children: 2 Number of grandchildren: 0 Highest education level completed: Associate Degree: Occupational, Technical, Vocational Program Education level details: [facility] [employer] service: No Current occupational status: disabled Current occupational exposures/hazards: No Pets and animals: Yes Pets & animals: cat(s) Leisure activites: music, games and other Leisure activities details: watch a lot of movies Sexually active: No Do you think of yourself as: Straight/Heterosexual Current gender identity: Female Aparna/Bahai: Latter Day Special aparna needs: No Agree to transfusion: Yes Female Reproductive History: Para: 2 Spontaneous abortions: Yes (10) Physical Exam Const: COMMON NORMALS: no acute distress, patient oriented x3 and healthy appearing HENMT: COMMON NORMALS: normocephalic and atraumatic HEAD & SCALP: normocephalic and atraumatic Eye: COMMON NORMALS: conjunctivae normal CONJUNCTIVA: Yes conjunctivae normal Neck/C-Spine: COMMON NORMALS: full ROM and supple Chest: COMMONS NORMALS: normal inspection of the chest Resp: COMMON NORMALS: normal respiratory effort Cardio: COMMON NORMALS: regular rate, regular rhythm and No murmurs present (Cardio) RATE: regular rate RHYTHM: regular rhythm Extremity: COMMON NORMALS: normal to inspection and full ROM Neuro: COMMON NORMALS: patient oriented x3, moves all extremities and no focal motor deficits Psych: COMMON NORMALS: mental status grossly normal, Normal thought process present and cooperative THOUGHT PROCESS: Normal thought process present THOUGHT CONTENT: Yes Suicidality present Skin: COMMON NORMALS: no rashes or lesions noted and no wounds GENERAL SKIN EXAM: no rashes or lesions noted Course Vital Signs: Vital signs: Vital Signs Temperature 97.8 F 05/25/24 18:36 Pulse Rate 62 05/25/24 19:18 Respiratory Rate 15 05/25/24 19:18 Blood Pressure 128/67 05/25/24 19:18 Pulse Oximetry 98 05/25/24 19:18 Oxygen Delivery Me thod Room Air 05/25/24 18:36 MDM - Psych Medical Decision Making Patient presents here with suicidal ideations patient is medically cleared she is placed under 96-hour hold and will admit at this time. Medical Records I reviewed the patient's medical records. Lab Data I reviewed the patient's lab results. 05/25/24 19:07 05/25/24 19:07 Laboratory Results WBC 3.43 10^3/uL (3.29-11.43) 05/25/24 19:07 RBC 3.20 10^6/uL (3.85-5.65) L 05/25/24 19:07 Hgb 9.40 g/dL (11.27-16.99) L 05/25/24 19:07 Hct 28.2 % (36-47) L 05/25/24 19:07 MCV 88.1 fl (85-98) 05/25/24 19:07 MCH 29.4 pg (27-33) 05/25/24 19:07 MCHC 33.3 g/dL (30-55) 05/25/24 19:07 RDW 14.1 % (12.1-15.1) 05/25/24 19:07 Plt Count 65 10^3/cmm (157-399) L 05/25/24 19:07 MPV 11.1 fL (7.4-10.4) H 05/25/24 19:07 Neut % (Auto) 55.4 % 05/25/24 19:07 Lymph % (Auto) 32.1 % 05/25/24 19:07 [place] % (Auto) 8.7 % 05/25/24 19:07 Eos % (Auto) 2.9 % 05/25/24 19:07 Baso % (Auto) 0.6 % 05/25/24 19:07 Neut # (Auto) 1.90 10^3/uL (1.8-7.7) 05/25/24 19:07 Lymph # (Auto) 1.1 10^3/uL (0.8-4.8) 05/25/24 19:07 [place] # (Auto) 0.3 10^3/uL (0.2-0.9) 05/25/24 19:07 Eos # (Auto) 0.1 10^3/uL (0.0-0.8) 05/25/24 19:07 Baso # (Auto) 0.0 10^3/uL (0.0-0.1) 05/25/24 19:07 Nucleated RBC % (auto) 0 % 05/25/24 19:07 Nucleated RBCs # 0.0 /100WBC 05/25/24 19:07 Sodium 146 mmol/L (136-145) H 05/25/24 19:07 Potassium 3.5 mmol/L (3.5-5.1) 05/25/24 19:07 Chloride 112 mmol/L (98-107) H 05/25/24 19:07 Carbon Dioxide 23 mmol/L (22-29) 05/25/24 19:07 Anion Gap 14.5 (5-19) 05/25/24 19:07 BUN 6 mg/dL (6-20) 05/25/24 19:07 Creatinine 0.5 mg/dL (0.5-0.9) 05/25/24 19:07 GFR Calculation 127.2 mL/min (90-130) 05/25/24 19:07 Glucose 94 mg/dL (65-115) 05/25/24 19:07 Calculated Osmolality 299 mOsm/kg (285-295) H 05/25/24 19:07 Calcium 8.4 mg/dL (8.5-10.5) L 05/25/24 19:07 Total Bilirubin 1.3 mg/dL (0.15-1.2) H 05/25/24 19:07 AST 51 U/L (0-32) H 05/25/24 19:07 ALT 24 U/L (0-33) 05/25/24 19:07 Alkaline Phosphatase 197 U/L (35-105) H 05/25/24 19:07 Total Protein 5.3 g/dL (6.6-8.7) L 05/25/24 19:07 Albumin 3.1 g/dL (3.5-5.2) L 05/25/24 19:07 Globulin 2.2 g/dL (1.3-4.6) 05/25/24 19:07 Salicylates < 0.3 mg/dL (3-10) L 05/25/24 19:07 Urine Opiates Screen Negative ng/mL (Negative) 05/25/24 19:09 Acetaminophen < 5.0 ug/mL (10-30) L 05/25/24 19:07 Ur Barbiturates Screen Negative ng/mL (Negative) 05/25/24 19:09 Ur Phencyclidine Scrn Negative ng/mL (Negative) 05/25/24 19:09 Ur Amphetamines Screen Negative ng/mL (Negative) 05/25/24 19:09 U Benzodiazepines Scrn Negative ng/mL (Negative) 05/25/24 19:09 Urine Cocaine Screen Negative ng/mL (Negative) 05/25/24 19:09 U Marijuana (THC) Screen Positive ng/mL (Negative) H 05/25/24 19:09 Ethyl Alcohol 204 mg/dL (0-10) H 05/25/24 19:07 No radiology studies performed this visit Discharge Plan Discharge Patient Disposition: Admitted As Inpatient Clinical Impression: Suicidal ideation Condition: Stable Coding Level of Care Code ED Automobile Damage Appraiser for Rober Arellano
[2024-05-25 19:14] LABS: Basophils % 0.6 %; Eosinophils # 0.1 10^3/uL (0.0-0.8); Eosinophils % 2.9 %; Hematocrit 28.2 % (36-47); Lymphocytes # 1.1 10^3/uL (0.8-4.8); Lymphocytes % 32.1 %; Mean Corpuscular HGB Conc 33.3 g/dL (30-55); Mean Corpuscular Hemoglobin 29.4 pg (27-33); Mean Corpuscular Volume 88.1 fl (85-98); Mean Platelet Volume 11.1 fL (7.4-10.4); Monocytes # 0.3 10^3/uL (0.2-0.9); Monocytes % 8.7 %; Neutrophils % 55.4 %; Nucleated Red Blood Cells % 0 %; Platelet Count 65 10^3/cmm (157-399); Red Cell Distribution Width 14.1 % (12.1-15.1); White Blood Count 3.43 10^3/uL (3.29-11.43)
[2024-05-25 19:18] VITALS: BP 128/67; PULSE 62; RESP 15; O2SAT 98
[2024-05-25 19:25] LABS: Amphetamines Screen Urine Negative (Negative); Barbiturates Screen Urine Negative (Negative); Benzodiazepines Screen Urine Negative (Negative); Cocaine Screen Urine Negative (Negative); Opiate Screen Urine Negative (Negative); PCP Screen Urine Negative (Negative); THC Screen Urine Positive (Negative)
[2024-05-25 19:35] LABS: Alanine Aminotransferase 24 U/L (0-33); Albumin Level 3.1 g/dL (3.5-5.2); Alcohol Level 204 mg/dL (0-10); Alkaline Phosphatase 197 U/L (35-105); Anion Gap 14.5 (5-19); Aspartate Amino Transferase 51 U/L (0-32); Blood Urea Nitrogen 6 mg/dL (6-20); Calcium 8.4 mg/dL (8.5-10.5); Carbon Dioxide 23 mmol/L (22-29); Chloride 112 mmol/L (98-107); Creatinine Clr Calc Pharmacy 133.3375; Globulin 2.2 g/dL (1.3-4.6); Glomerular Filtration Rate 127.2 mL/min (90-130); Glucose 94 mg/dL (65-115); Osmolality Calculated 299 mOsm/kg (285-295); Potassium 3.5 mmol/L (3.5-5.1); Sodium 146 mmol/L (136-145); Total Bilirubin 1.3 mg/dL (0.15-1.2); Total Protein 5.3 g/dL (6.6-8.7)
[2024-05-25 19:39] LABS: Acetaminophen < 5.0 ug/mL (10-30); Salicylate < 0.3 mg/dL (3-10)
[2024-05-25 20:00] VITALS: PULSE 60; O2SAT 98
--- NOTE | 2024-05-25 20:10 | PC.NURSE ---
96 Hour Hour Pt served with copy of 96 HH by this RN and security. Pt was Alert and orient and tearful. I've been in chronic pain for years, it's getting worse, I can't sleep anymore because of it . I don't want to be here, I don't want to hurt myself, I just want the pain to go away enough for me to sleep .
[2024-05-25 21:54] VITALS: BP 126/81; PULSE 71; RESP 18; TEMP 36.8; O2SAT 100
[2024-05-25] MEDS: haloperidol inj 5 mg/mL INJ 1 mL IM (22:40)
[2024-05-25] MEDS: LORazepam 2 mg/mL INJ 1 mL IM (22:41)
[2024-05-25] MEDS: diphenhydrAMINE 50 mg/mL SDV 1mL IM (22:41)
[2024-05-26] VITALS: RESP 16
[2024-05-26 08:00] VITALS: BP 132/61; PULSE 73; RESP 16; O2SAT 100
[2024-05-26 12:00] VITALS: BP 156/67; PULSE 70; RESP 17; O2SAT 99
[2024-05-26] MEDS: folic acid 1 mg Tablet PO (12:18)
[2024-05-26] MEDS: thiamine 100 mg Tablet PO (12:18)
[2024-05-26] MEDS: multivitamin therapeutic Tablet 1 TAB PO (12:18)
[2024-05-26] MEDS: flu vacc pf 24-25 (6 mos+) SYRINGE 45 MCG IM (12:34)
[2024-05-26] MEDS: nicotine 21 mg Patch 1 PATCH TRANSDERMA (12:37)
[2024-05-26] MEDS: OLANZapine 5 mg ODT PO (12:37)
[2024-05-26] MEDS: acetaminophen 325 mg Tablet 650 MG PO (12:37)
--- NOTE | 2024-05-26 15:45 | W.PM.NPUH&PS ---
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 Fwd Diagnoses Depression F32.A Suicidal ideation R45.851 Alcohol use disorder, severe, dependence F10.20 Paronychia due to ingrown nail Borderline personality disorder F60.3
[2024-05-26 16:00] VITALS: BP 123/69; PULSE 93; RESP 17; TEMP 37; O2SAT 96
[2024-05-26 20:00] VITALS: RESP 18
--- NOTE | 2024-05-26 20:19 | PC.NURSE ---
Patient refused nurse notified
[2024-05-27] VITALS: BP 136/88; PULSE 83; RESP 18; TEMP 36.6; O2SAT 96
[2024-05-27] MEDS: OLANZapine 5 mg ODT PO ×2 (00:13→21:36)
[2024-05-27] MEDS: trazodone 50 mg Tablet PO ×3 (00:13→21:36)
[2024-05-27] MEDS: haloperidol 5 mg Tablet PO (01:53)
[2024-05-27] MEDS: hyDROXYzine 25 mg Capsule 50 MG PO ×2 (01:53→14:54)
--- NOTE | 2024-05-27 01:54 | PC.NURSE ---
Patient came to nursing station C/O Insomnia, continued anxiety and feeling agitated. Given PRN Vistaril and Haldol 5mg PO.
[2024-05-27 04:00] VITALS: BP 132/78; PULSE 60; RESP 18; TEMP 36.6; O2SAT 99
[2024-05-27] MEDS: LORazepam 2 mg Tablet PO (04:01)
[2024-05-27] MEDS: ondansetron 4 MG Tablet PO (04:01)
--- NOTE | 2024-05-27 04:11 | PC.NURSE ---
Patient continues to C/O Anxiety, agitation and now, mild nausea. Upon CIWA assessment there was also visible, but mild tremors. CIWA score = 11. 2mg Ativan PO, Zofran 4mg PO and trazadone 50 mg PO was given.
[2024-05-27 08:00] VITALS: BP 117/54; PULSE 58; RESP 17; O2SAT 100
[2024-05-27] MEDS: thiamine 100 mg Tablet PO (08:34)
[2024-05-27] MEDS: multivitamin therapeutic Tablet 1 TAB PO (08:34)
[2024-05-27] MEDS: folic acid 1 mg Tablet PO (08:34)
[2024-05-27] MEDS: naltrexone hcl 50 mg Tablet PO (08:34)
[2024-05-27 12:00] VITALS: BP 124/54; PULSE 58; RESP 17; O2SAT 99
--- NOTE | 2024-05-27 14:48 | P.NPUPN_ITS ---
Subjective NPU 2 Subjective: Patient reported that she was doing fine and stated that she had things to take care of at home. She had endorsed depressed mood but minimized suicidal thoughts. She had reported that she had not been compliant with her medications including her antidepressant. She had reported that she had history of alcohol related withdrawal symptoms and remained on a CIWA here. Patient had reported having a difficult visit with her boyfriend yesterday. She had continued to show evidence of poor motivation and she had not been able to attend groups. She had reported significant pain issues as well. She endorsed a history of neuropathy and stated that she was currently on no medications at this time. Mental Status Exam 2 MSE Comments: Patient is a casually dressed white female who was alert and oriented to person, place but not time currently. Antalgic gait appreciated. There was no evidence of any abnormal involuntary motor movements tics or tremors appreciated. She appeared in modest distress and appeared confused at times. Her hygiene was poor. Her speech was slurred, limited in spontaneity, and decreased in volume and production. Her mood was described as depressed. Her affect appeared mood congruent and restricted. She endorsed no homicidal ideation and denied suicidal ideation. She did not appear to be responding to internal stimuli. There was no evidence of delusional thinking. Her recent and remote memory appeared poor. Her insight and judgment were impaired. Her impulse control appeared poor. Vitals/I&O/Wt Last Vital Signs Temp 97.8 F 05/27/24 04:00 Pulse 58 L 05/27/24 12:00 Resp 17 05/27/24 12:00 BP 124/54 05/27/24 12:00 Pulse Ox 99 05/27/24 12:00 O2 Del Method Room Air 05/27/24 04:00 05/26/24 05/27/24 05/27/24 22:59 06:59 14:59 Intake Total 240 / 240 Balance 240 / 240 Weight last 48 hrs Weight 68.039 kg Data NPU 05/25/24 19:07 05/25/24 19:07 A&P Assessment and plan (1) Depression: (2) Suicidal ideation: (3) Alcohol use disorder, severe, dependence: (4) Paronychia due to ingrown nail: (5) Borderline personality disorder: Plan This is a 59-year-old white female with multiple inpatient hospitalizations with a history of alcohol dependence and depression reporting inititally suicidal ideation in the context of her use of alcohol with poor coping skills. BAL was 197 on arrival with history of significant alcohol withdrawal symptoms as well. She denies any need for the hospitalization but is here on 96 hour hold. 1.? ?Engage? patient in individual ,milieu, and group therapy ?2. ? Start Prozac 20mg daily. Will begin vivitrol on discharge ?3. ? TO-15 minute checks on the unit. ?4.? Recommend sober living treatment at the highest level of care to which the patient is willing to commit. 5. ? CIWA protocol, patient may benefit from a trial of naltrexone oral to target alcohol cravings. 6. Evaluate for safety against the context of the 96-hour hold. PDMP PDMP Reviewed: Not Reviewed Involuntary Hold Information 2 96 Hour Hold: 96 Hour Involuntary Admission: Yes 96 Hour Hold Ending Date: 06/02/24 96 Hour Hold Ending Time: 00:01 Other Hold: Hold End Date: 06/02/24 Attestations NPU 2 Medical Necessity Statement*: Inpatient hospitalization is medically necessary and deemed to be the clinically appropriate intervention at this time. We will monitor and initiate medications while making changes as indicated. Her likely length of stay is 1-2 days. Coding Level of Care Code Acute Code for [facility] Fwd Diagnoses Depression F32.A Suicidal ideation R45.851 Alcohol use disorder, severe, dependence F10.20 Paronychia due to ingrown nail Borderline personality disorder F60.3
[2024-05-27 16:00] VITALS: BP 130/89; PULSE 79; RESP 47; O2SAT 99
[2024-05-27] MEDS: fluoxetine 20 mg Capsule PO (17:39)
[2024-05-27 20:00] VITALS: BP 134/78; PULSE 79; RESP 16; TEMP 37.3; O2SAT 99
[2024-05-28] VITALS: BP 112/52; PULSE 75; RESP 16; TEMP 37.1; O2SAT 98
[2024-05-28 04:00] VITALS: BP 147/94; PULSE 108; RESP 18; TEMP 36.4; O2SAT 97
[2024-05-28] MEDS: hyDROXYzine 25 mg Capsule 50 MG PO ×2 (04:50→16:01)
[2024-05-28 08:00] VITALS: BP 151/81; PULSE 86; RESP 18; TEMP 36.6; O2SAT 98
[2024-05-28] MEDS: naltrexone hcl 50 mg Tablet PO (08:09)
[2024-05-28] MEDS: folic acid 1 mg Tablet PO (08:09)
[2024-05-28] MEDS: fluoxetine 20 mg Capsule PO (08:10)
--- NOTE | 2024-05-28 14:33 | P.NPUPN_ITS ---
Subjective NPU 2 Subjective: 59-year-old female with alcohol dependen ce, depression, and borderline personality disorder admitted with suicidal ideation. She had not required any additional as needed medications for alcohol withdrawal. She had stated that she was feeling better. She remained agreeable to receiving IM Vivitrol on an outpatient basis. She had reported adequate sleep and stated that she had numerous things to take care of at home. She had reported that she was no longer feeling suicidal. She had continued to endorse concerns about pain in her legs from diabetic neuropathy. Mental Status Exam 2 MSE Comments: Patient is a casually dressed white female who was alert and oriented to person, place but not time currently. Antalgic gait appreciated. There was no evidence of any abnormal involuntary motor movements tics or tremors appreciated. She appeared in modest distress and appeared confused at times. Her hygiene was poor. Her speech was slurred, greater production and spontaneous with normal volume. Her mood was described as better. Her affect appeared somewhat subdued today. She endorsed no homicidal ideation and denied suicidal ideation. She did not appear to be responding to internal stimuli. There was no evidence of delusional thinking. Her recent and remote memory appeared poor. Her insight and judgment were impaired. Her impulse control appeared limited. Vitals/I&O/Wt Last Vital Signs Temp 98 F 05/28/24 08:00 Pulse 86 05/28/24 08:00 Resp 18 05/28/24 08:00 BP 151/81 05/28/24 08:00 Pulse Ox 98 05/28/24 08:00 O2 Del Method Room Air 05/28/24 04:00 Data NPU 05/25/24 19:07 05/25/24 19:07 A&P Assessment and plan (1) Depression: (2) Suicidal ideation: (3) Alcohol use disorder, severe, dependence: (4) Paronychia due to ingrown nail: (5) Borderline personality disorder: Plan This is a 59-year-old white female with multiple inpatient hospitalizations with a history of alcohol dependence and depression reporting inititally suicidal ideation in the context of her use of alcohol with poor coping skills. BAL was 197 on arrival with history of significant alcohol withdrawal symptoms as well. She denies any need for the hospitalization but is here on 96 hour hold. 1.? ?Engage? patient in individual ,milieu, and group therapy ?2. ? Start Prozac 20mg daily. Will begin vivitrol on discharge. Likely discharge tommorow. ?3. ? TO-15 minute checks on the unit. ?4.? Recommend sober living treatment at the highest level of care to which the patient is willing to commit. 5. ? CIWA protocol, patient may benefit from a trial of naltrexone oral to target alcohol cravings. 6. Evaluate for safety against the context of the 96-hour hold. PDMP PDMP Reviewed: Not Reviewed Involuntary Hold Information 2 96 Hour Hold: 96 Hour Involuntary Admission: Yes 96 Hour Hold Ending Date: 06/02/24 96 Hour Hold Ending Time: 00:01 Other Hold: Hold End Date: 06/02/24 Attestations NPU 2 Medical Necessity Statement*: Inpatient hospitalization is medically necessary and deemed to be the clinically appropriate intervention at this time. We will monitor and initiate medications while making changes as indicated. Her likely length of stay is 1-2 days. Coding Level of Care Code Acute Code for [facility] Fwd Diagnoses Depression F32.A Suicidal ideation R45.851 Alcohol use disorder, severe, dependence F10.20 Paronychia due to ingrown nail Borderline personality disorder F60.3
[2024-05-28] MEDS: multivitamin therapeutic Tablet 1 TAB PO (16:01)
[2024-05-28] MEDS: thiamine 100 mg Tablet PO (16:01)
[2024-05-28] MEDS: OLANZapine 5 mg ODT PO (19:19)
[2024-05-28 19:30] VITALS: BP 104/48; PULSE 70; RESP 17; TEMP 37.1; O2SAT 98
[2024-05-28] MEDS: trazodone 50 mg Tablet PO (20:09)
[2024-05-28] MEDS: haloperidol 5 mg Tablet PO (20:10)
[2024-05-29] MEDS: OLANZapine 5 mg ODT PO (04:13)
[2024-05-29 06:15] VITALS: BP 163/90; PULSE 100; RESP 17; TEMP 37.1; O2SAT 97
[2024-05-29] MEDS: naltrexone hcl 50 mg Tablet PO (09:17)
[2024-05-29] MEDS: folic acid 1 mg Tablet PO (09:17)
[2024-05-29] MEDS: thiamine 100 mg Tablet PO (09:17)
[2024-05-29] MEDS: fluoxetine 20 mg Capsule PO (09:17)
[2024-05-29] MEDS: multivitamin therapeutic Tablet 1 TAB PO (09:17)
[2024-05-29] MEDS: hyDROXYzine 25 mg Capsule 50 MG PO (10:10)
--- NOTE | 2024-05-29 11:36 | DCPLANNER ---
IMM completed 05/29/2023 @ 1118. Pt was given a copy of her rights.
--- NOTE | 2024-05-29 12:44 | P.NPUDS_ITS ---
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 less than 30 min Specific Discharge Activities: Specific discharge activities: educating patient, discussing with case specialist/social workers/dc planners and documenting/other paperwork Coding Level of Care Code Acute Code for Chg Fwd Diagnoses Depression F32.A Suicidal ideation R45.851 Alcohol use disorder, severe, dependence F10.20 Paronychia due to ingrown nail Borderline personality disorder F60.3
[2024-05-29 14:38] VITALS: BP 138/88; PULSE 98; RESP 18; TEMP 36.6; O2SAT 98
== END 2024-05-29 15:03 | disposition home or self-care (01) | DRG 881 ==
LOC: ER 19:04 → NP 20:43
PROVIDERS: Admitting Provider Psychiatry & Neurology Psychiatry; Emergency Provider Emergency Medicine; Visit Provider Psychiatry & Neurology Psychiatry
DX: F32.A Depression, unspecified (principal); R45.851 Suicidal ideations; F10.20 Alcohol dependence, uncomplicated; F60.3 Borderline personality disorder; Y90.6 Blood alcohol level of 120-199 mg/100 ml; J44.9 Chronic obstructive pulmonary disease, unspecified; E11.42 Type 2 diabetes mellitus with diabetic polyneuropathy
CPT/HCPCS: 36415; 80053; 80306; 80307; 85025; 90471; 90686; 93005; 96372; 97150; 97165; 99285; J1200; J1630; J2060; Q0162

== ENCOUNTER 2024-06-17 15:48 | Emergency (ER) | payer MEDICARE, MEDICAID, SELFPAY ==
[2023-06-26 14:03] VITALS: BP 147/78; BMI 37.0
[2024-06-17 15:54] VITALS: BP 121/67; PULSE 87; RESP 17; TEMP 37.3; O2SAT 96; BMI 30.2
--- NOTE | 2024-06-17 16:20 | ED_ITS ---
HPI - Extremity Problem 2 General: Chief complaint: Extremity Problem,Nontraumatic Stated complaint: legs swollen Time Seen by Provider: 06/17/24 16:13 Source: patient Mode of arrival: ambulatory Limitations: no limitations History of Present Illness: 59-year-old female who states that she s tarted a new job she has been on her feet much more over the last week states that since she been on her feet she been having increased leg swelling and pain with the swelling. She is not on Lasix she denies any fevers denies any chest pain or shortness of breath. Denies any injuries Associated symptoms: Deny chest pain, fever(s) or rash Related Data Home Medications ?Medication ?Instructions ?Recorded ?Confirmed albuterol sulfate 90 mcg/actuation 2 puff inhalation Q 4H PRN 04/04/24 05/25/24 aerosol inhaler Shortness Of Breath Or Wheez ing Previous Rx's ?Medication ?Instructions ?Recorded fluoxetine 20 mg capsule 20 mg PO DAILY 30 days #30 c aps 05/28/24 folic acid 1 mg tablet 1 mg PO DAILY 30 days #30 ta bs 05/28/24 multivitamin with folic acid 400 1 tab PO DAILY 30 day s #30 tabs 05/28/24 mcg tablet (Thera) thiamine mononitrate (vit B1) 100 100 mg PO DAILY 30 d ays #30 tabs 05/28/24 mg tablet (Vitamin B-1 (mononitrate)) naltrexone microspheres 380 mg 380 mg IM ONCE #1 ea intramuscular suspension,extended release (Vivitrol) Allergies Allergy/AdvReac Type Severity Reaction Status Date / Time venom-wasp Allergy Severe ALGY-Anaphy Verified 05/25/24 18:03 laxis Sulfa (Sulfonamide Allergy Intermediate Hives Verified 05/25/24 18:03 Antibiotics) aspirin Allergy Unknown Unknown Verified 05/25/24 18:03 Cephalosporins Allergy Unknown Unknown Verified 05/25/24 18:03 NSAIDS (Non-Steroidal Allergy Unknown Unknown Verified 05/25/24 18:03 Anti-Inflamma sumatriptan (From Imitrex) Allergy Unknown Unknown Verified 05/25/24 18:03 ibuprofen (From NeoProfen Allergy UNKNOWN Verified 05/25/24 18:03 (ibuprofen lysn)(PF)) metoclopramide (From Reglan) Allergy ALGY-Joint Verified 05/25/24 18:03 Pain bupropion (From Wellbutrin) AdvReac Intermediate ALGY-Rash Verified 05/25/24 18:03 prednisone AdvReac Intermediate Heart rate Verified 05/25/24 18:03 was heavy. [place] sick. Review of Systems 2 Const: Denies: fever(s), chills, body aches or change in appetite Eyes: Denies: blurry vision or eye discomfort ENMT: Denies: throat pain or dental pain Card: Denies: chest pain Resp: Denies: dyspnea GI: Denies: abdominal pain, nausea, vomiting or diarrhea Musc: Reports: extremity pain and extremity swelling; Denies: neck pain or back pain Skin/Breast: Denies: rash Neuro: Denies: headache(s) PFSH ED 2 PFSH: Medical History PTSD (post-traumatic stress disorder) Suicidal ideation Cannabis dependence, episodic use Major depressive disorder, recurrent, severe with psychotic symptoms Nicotine dependence due to vaping tobacco product Vaping nicotine Chronic post-traumatic stress disorder Alcohol use disorder, severe, dependence Psychiatric care Uncontrolled type 2 diabetes with neuropathy Sacroiliitis H/O Belkys-Valenzuela syndrome (~07/2019) EGD at [facility]. EGD 10/26 negative. Chronic back pain Congestive heart failure Diabetes mellitus MONTANO (nonalcoholic steatohepatitis) Borderline personality disorder Bilateral primary osteoarthritis of hip Surgical History History of hysterectomy History of esophagogastroduodenoscopy H/O colonoscopy H/O cervical spine surgery Family History Son Suicide September 2019 Other Cancer Hypertension Psychiatric illness Social History Smoking and tobacco/nicotine status: current every day tobacco/nicotine user cigarettes [ Other cigarette details: When vape breaks she returns to cigarettes] and e-cigarettes E-Cigarette Details: vaporizer device and with nicotine E-cig/vape details: 6000 puffs in each device, uses 3 per month Quit status (tobacco/nicotine): not considering quitting Second hand smoke exposure: Yes Alcohol intake: current Alcohol intake frequency: few times a month Alcohol type: hard liquor Substance/Drug Use: current Substance/Drug use frequency: daily Other substance/drug use details: medical card Adopted: No Caregiver/support person: Yes (cleans and runs errands) Lives independently: Yes Household members: none Housing: Apartment Marital status: Single Number of children: 2 Number of grandchildren: 0 Highest education level completed: Associate Degree: Occupational, Technical, Vocational Program 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: No Current occupational status: disabled Current occupational exposures/hazards: No Pets and animals: Yes Pets & animals: cat(s) Leisure activites: music, games and other Leisure activities details: watch a lot of movies Sexually active: No Do you think of yourself as: Straight/Heterosexual Current gender identity: Female Aparna/Anglican: Buddhist Special aparna needs: No Agree to transfusion: Yes Female Reproductive History: Para: 2 Spontaneous abortions: Yes (10) Physical Exam 2 Const: COMMON NORMALS: no acute distress, patient oriented x3 and healthy appearing HENMT: COMMON NORMALS: normocephalic and atraumatic HEAD & SCALP: n ormocephalic and atraumatic Eye: COMMON NORMALS: conjunctivae normal CONJUNCTIVA: Yes conjunctivae normal Neck/C-Spine: COMMON NORMALS: full ROM and supple Chest: COMMONS NORMALS: normal inspection of the chest Resp: COMMON NORMALS: normal respiratory effort, No retractions, No use of accessory muscles and clear to auscultation bilaterally AUSCULTATION: clear to auscultation bilaterally Cardio: COMMON NORMALS: regular rate, regular rhythm and No murmurs present (Cardio) RATE: regular rate RHYTHM: regular rhythm Extremity: COMMON NORMALS: full ROM NARRATIVE EXTREMITY EXAM: 1+ edema to bilateral extremities distal pulses intact no redness or warmth to touch Neuro: COMMON NORMALS: patient oriented x3, moves all extremities and no focal motor deficits Psych: COMMON NORMALS: mental status grossly normal, Normal thought process present and cooperative THOUGHT PROCESS: Normal thought process present Skin: COMMON NORMALS: no rashes or lesions noted and no wounds GENERAL SKIN EXAM: no rashes or lesions noted Course 2 Vital Signs: Vital signs: Vital Signs Temperature 99.2 F 06/17/24 15:54 Pulse Rate 71 06/17/24 17:26 Respiratory Rate 18 06/17/24 17:13 Blood Pressure 124/61 06/17/24 17:26 Pulse Oximetry 99 06/17/24 17:26 Oxygen Delivery Me thod Room Air 06/17/24 17:26 MDM - Extremity (Nontraumatic) Medical Decision Making Patient presents here with lower extremity edema she has been well-appearing here blood works normal she is to wear compression stockings at work follow-up with her PCP return if worsening she understands agrees to plan Medical Records I reviewed the patient's medical records. Lab Data I reviewed the patient's lab results. 06/17/24 16:25 06/17/24 16:25 Laboratory Results WBC 4.06 10^3/uL (3.29-11.43) 06/17/24 16: RBC 2.92 10^6/uL (3.85-5.65) L 06/17/24 16: Hgb 8.70 g/dL (11.27-16.99) L 06/17/24 16: Hct 27.8 % (36-47) L 06/17/24 16: MCV 95.2 fl (85-98) 06/17/24 16: MCH 29.8 pg (27-33) 06/17/24 16: MCHC 31.3 g/dL (30-55) 06/17/24 16: RDW 14.9 % (12.1-15.1) 06/17/24 16: Plt Count 94 10^3/cmm (157-399) L 06/17/24 16: MPV 10.2 fL (7.4-10.4) 06/17/24 16: Neut % (Auto) 69.5 % 06/17/24 16:25 Lymph % (Auto) 18.5 % 06/17/24 16:25 [place] % (Auto) 8.6 % 06/17/24 16:25 Eos % (Auto) 2.7 % 06/17/24 16: Baso % (Auto) 0.5 % 06/17/24 16: Neut # (Auto) 2.82 10^3/uL (1.8-7.7) 06/17/24 16: Lymph # (Auto) 0.8 10^3/uL (0.8-4.8) 06/17/24 16:25 [place] # (Auto) 0.4 10^3/uL (0.2-0.9) 06/17/24 16:25 Eos # (Auto) 0.1 10^3/uL (0.0-0.8) 06/17/24 16:25 Baso # (Auto) 0.0 10^3/uL (0.0-0.1) 06/17/24 16:25 Nucleated RBC % (auto) 0 % 06/17/24 16:25 Nucleated RBCs # 0.0 /100WBC 06/17/24 16:25 Sodium 139 mmol/L (136-145) 06/17/24 16:25 Potassium 4.4 mmol/L (3.5-5.1) 06/17/24 16:25 Chloride 109 mmol/L (98-107) H 06/17/24 16:25 Carbon Dioxide 21 mmol/L (22-29) L 06/17/24 16:25 Anion Gap 13.4 (5-19) 06/17/24 16:25 BUN 8 mg/dL (6-20) 06/17/24 16:25 Creatinine 0.5 mg/dL (0.5-0.9) 06/17/24 16:25 GFR Calculation 127.2 mL/min (90-130) 06/17/24 16:25 Glucose 73 mg/dL (65-115) 06/17/24 16:25 Calculated Osmolality 285 mOsm/kg (285-295) 06/17/24 16:25 Calcium 8.6 mg/dL (8.5-10.5) 06/17/24 16:25 Total Bilirubin 1.1 mg/dL (0.15-1.2) 06/17/24 16:25 AST 49 U/L (0-32) H 06/17/24 16:25 ALT 20 U/L (0-33) 06/17/24 16:25 Alkaline Phosphatase 165 U/L (35-105) H 06/17/24 16:25 NT-Pro-B Natriuret Pep 97 pg/mL (0-125) 06/17/24 16:25 Total Protein 5.6 g/dL (6.6-8.7) L 06/17/24 16:25 Albumin 2.8 g/dL (3.5-5.2) L 06/17/24 16:25 Globulin 2.8 g/dL (1.3-4.6) 06/17/24 16:25 All radiology interpretation(s) finalized by discharge Discharge Plan Discharge Patient Disposition: Home Clinical Impression: Lower extremity edema Condition: Stable Prescriptions: No Action albuterol sulfate 90 mcg/actuation HFA aerosol inhaler 2 puff INHALATION Q4H PRN (Reason: Shortness Of Breath Or Wheezing) multivitamin with folic acid [Thera] 400 mcg Tablet 1 tab PO DAILY 30 Days Qty: 30 0RF thiamine mononitrate (vit B1) [Vitamin B-1 (mononitrate)] 100 mg Tablet 100 mg PO DAILY 30 Days Qty: 30 1RF folic acid 1 mg Tablet 1 mg PO DAILY 30 Days Qty: 30 1RF fluoxetine 20 mg Capsule 20 mg PO DAILY 30 Days Qty: 30 1RF Vivitrol 380 mg suspension,extended rel recon 380 mg IM ONCE Qty: 1 0RF Discharge Orders: Discharge ED (Routine); Ordered 06/17/24 Ordered By: Carmela Haro Referrals: Aida Vincent PA [Primary Care Provider] - 4-7 days Discharge Diet: Advance as tolerated Discharge Activity: Resume usual activity Patient Instructions: Leg Edema (ED) Print Language: Vietnamese Coding Level of Care Code ED Taxi Truck Driver for Rober Arellano
[2024-06-17 16:48] LABS: Basophils % 0.5 %; Eosinophils # 0.1 10^3/uL (0.0-0.8); Eosinophils % 2.7 %; Hematocrit 27.8 % (36-47); Lymphocytes # 0.8 10^3/uL (0.8-4.8); Lymphocytes % 18.5 %; Mean Corpuscular HGB Conc 31.3 g/dL (30-55); Mean Corpuscular Hemoglobin 29.8 pg (27-33); Mean Corpuscular Volume 95.2 fl (85-98); Mean Platelet Volume 10.2 fL (7.4-10.4); Monocytes # 0.4 10^3/uL (0.2-0.9); Monocytes % 8.6 %; Neutrophils # 2.82 10^3/uL (1.8-7.7); Neutrophils % 69.5 %; Nucleated Red Blood Cells % 0 %; Platelet Count 94 10^3/cmm (157-399); Red Blood Count 2.92 10^6/uL (3.85-5.65); Red Cell Distribution Width 14.9 % (12.1-15.1); White Blood Count 4.06 10^3/uL (3.29-11.43)
[2024-06-17] MEDS: ondansetron 2 mg/ML SDV 2 mL 4 MG IVP (17:10)
[2024-06-17 17:13] VITALS: RESP 18; O2SAT 100
[2024-06-17] MEDS: morphine 4 mg/mL SDV 1 mL IVP (17:13)
[2024-06-17] MEDS: FUROsemide 10 mg/mL SDV 10mL 60 MG IVP (17:14)
[2024-06-17 17:15] LABS: Alanine Aminotransferase 20 U/L (0-33); Albumin Level 2.8 g/dL (3.5-5.2); Alkaline Phosphatase 165 U/L (35-105); Blood Urea Nitrogen 8 mg/dL (6-20); Calcium 8.6 mg/dL (8.5-10.5); Carbon Dioxide 21 mmol/L (22-29); Chloride 109 mmol/L (98-107); Creatinine Clr Calc Pharmacy 133.3375; Globulin 2.8 g/dL (1.3-4.6); Glomerular Filtration Rate 127.2 mL/min (90-130); Glucose 73 mg/dL (65-115); NT Pro B Type Natriuretic Pept 97 pg/mL (0-125); Osmolality Calculated 285 mOsm/kg (285-295); Sodium 139 mmol/L (136-145); Total Bilirubin 1.1 mg/dL (0.15-1.2); Total Protein 5.6 g/dL (6.6-8.7)
[2024-06-17 17:22] LABS: Anion Gap 13.4 (5-19); Aspartate Amino Transferase 49 U/L (0-32); Potassium 4.4 mmol/L (3.5-5.1)
[2024-06-17 17:26] VITALS: BP 124/61; PULSE 71; O2SAT 99
[2024-06-17 17:48] VITALS: BP 125/52; PULSE 73; O2SAT 97
== END 2024-06-17 17:50 | disposition home or self-care (01) ==
PROVIDERS: Emergency Provider Emergency Medicine; PCP Physician Assistant
DX: R60.0 Localized edema (principal); E11.40 Type 2 diabetes mellitus with diabetic neuropathy, unspecified; I50.9 Heart failure, unspecified; F17.290 Nicotine dependence, other tobacco product, uncomplicated
CPT/HCPCS: 80053; 83880; 85025; 96374; 96375; 99284; J1940; J2270; J2405

== ENCOUNTER 2024-06-21 23:05 | Emergency (ER) | payer MEDICARE, MEDICAID, SELFPAY ==
[2023-06-26 14:03] VITALS: BP 147/78; BMI 37.0
--- NOTE | 2024-06-21 23:11 | ECG_ITS ---
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
--- NOTE | 2024-06-21 23:11 | XRR_ITS ---
PROCEDURE INFORMATION: Exam: XR Chest Exam date and time: 06/22/2024 1:39 AM Age: 59 years old Clinical indication: Shortness of breath; Prior surgery; Surgery date: 6+ months; Surgery type: Cervical fusion; C/O SOB. History of chf and copd. TECHNIQUE: Imaging protocol: Radiologic exam of the chest. Views: 1 view. COMPARISON: CR XR chest 1V portable [id number] 04/15/2024 6:40 PM FINDINGS: Lungs: There are increased interstitial and linear opacities present in the lower yoanna thoraces, left more prominent than right, findings may represent pulmonary edema although a bilateral basilar interstitial pneumonitis and/or atelectasis can not be excluded. Pleural spaces: Unremarkable. No pleural effusion. No pneumothorax. Heart/Mediastinum: Unremarkable. No cardiomegaly. Bones/joints: Postoperative changes are seen in the cervical spine. XR/XR chest 1V portable [id number] IMPRESSION: Increased interstitial and linear opacities in the lower hemithoraces bilaterally, left more prominent than right may represent pulmonary edema although a bilateral basilar interstitial pneumonitis or atelectasis can not excluded.
[2024-06-21 23:40] VITALS: BP 158/83; PULSE 88; RESP 18; TEMP 37.1; O2SAT 96
--- NOTE | 2024-06-22 02:08 | ECG_ITS ---
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
[2024-06-22 02:14] VITALS: PULSE 67; RESP 16; O2SAT 100
[2024-06-22 02:17] VITALS: BP 158/82
--- NOTE | 2024-06-22 02:39 | ED_ITS ---
HPI - General Adult 2 General: Chief complaint: General Medical Stated complaint: too much fluid chf Time Seen by Provider: 06/22/24 02:01 History of Present Illness: Patient presents with severe bilateral lower extremity edema and associated pain. Reports working 8-hour shifts for the past 5 days. Patient describes significant nocturnal leg cramping that is severely painful, occasionally causing her to cry and requiring assistance from her fianc? for comfort measures. Has known history of heart failure but hasn't been monitored recently and is uncertain of ejection fraction. Previously prescribed Lasix when living in [place], but medication was discontinued after relocating and hasn't been restarted. Patient reports similar symptoms occurred approximately 20 years ago. Fianc? notes patient is typically dehydrated. Related Data Home Medications ?Medication ?Instructions ?Recorded ?Confirmed albuterol sulfate 90 mcg/actuation 2 puff inhalation Q 4H PRN 04/04/24 05/25/24 aerosol inhaler Shortness Of Breath Or Wheez ing Previous Rx's ?Medication ?Instructions ?Recorded fluoxetine 20 mg capsule 20 mg PO DAILY 30 days #30 c aps 05/28/24 folic acid 1 mg tablet 1 mg PO DAILY 30 days #30 ta bs 05/28/24 multivitamin with folic acid 400 1 tab PO DAILY 30 day s #30 tabs 05/28/24 mcg tablet (Thera) thiamine mononitrate (vit B1) 100 100 mg PO DAILY 30 d ays #30 tabs 05/28/24 mg tablet (Vitamin B-1 (mononitrate)) naltrexone microspheres 380 mg 380 mg IM ONCE #1 ea intramuscular suspension,extended release (Vivitrol) furosemide 20 mg tablet (Lasix) 20 mg PO DAILY #14 tab s 06/22/24 Allergies Allergy/AdvReac Type Severity Reaction Status Date / Time venom-wasp Allergy Severe ALGY-Anaphy Verified 06/21/24 23:43 laxis Sulfa (Sulfonamide Allergy Intermediate Hives Verified 06/21/24 23:43 Antibiotics) aspirin Allergy Unknown Unknown Verified 06/21/24 23:43 Cephalosporins Allergy Unknown Unknown Verified 06/21/24 23:43 NSAIDS (Non-Steroidal Allergy Unknown Unknown Verified 06/21/24 23:43 Anti-Inflamma sumatriptan (From Imitrex) Allergy Unknown Unknown Verified 06/21/24 23:43 ibuprofen (From NeoProfen Allergy UNKNOWN Verified 06/21/24 23:43 (ibuprofen lysn)(PF)) metoclopramide (From Reglan) Allergy ALGY-Joint Verified 06/21/24 23:43 Pain bupropion (From Wellbutrin) AdvReac Intermediate ALGY-Rash Verified 06/21/24 23:43 prednisone AdvReac Intermediate Heart rate Verified 06/21/24 23:43 was heavy. [place] sick. [facility] ED 2 PFSH: Medical History PTSD (post-traumatic stress disorder) Suicidal ideation Cannabis dependence, episodic use Major depressive disorder, recurrent, severe with psychotic symptoms Nicotine dependence due to vaping tobacco product Vaping nicotine Chronic post-traumatic stress disorder Alcohol use disorder, severe, dependence Psychiatric care Uncontrolled type 2 diabetes with neuropathy Sacroiliitis H/O Belkys-Valenzuela syndrome (~07/2019) EGD at [facility]. EGD 10/26 negative. Chronic back pain Congestive heart failure Diabetes mellitus MONTANO (nonalcoholic steatohepatitis) Borderline personality disorder Bilateral primary osteoarthritis of hip Surgical History History of hysterectomy History of esophagogastroduodenoscopy H/O colonoscopy H/O cervical spine surgery Family History Son Suicide September 2019 Other Cancer Hypertension Psychiatric illness Social History Smoking and tobacco/nicotine status: current every day tobacco/nicotine user cigarettes [ Other cigarette details: When vape breaks she returns to cigarettes] and e-cigarettes E-Cigarette Details: vaporizer device and with nicotine E-cig/vape details: 6000 puffs in each device, uses 3 per month Quit status (tobacco/nicotine): not considering quitting Second hand smoke exposure: Yes Alcohol intake: current Alcohol intake frequency: few times a month Alcohol type: hard liquor Substance/Drug Use: current Substance/Drug use frequency: daily Other substance/drug use details: medical card Adopted: No Caregiver/support person: Yes (cleans and runs errands) Lives independently: Yes Household members: none Housing: Apartment Marital status: Single Number of children: 2 Number of grandchildren: 0 Highest education level completed: Associate Degree: Occupational, Technical, Vocational Program Education level details: [facility] service: No Current occupational status: disabled Current occupational exposures/hazards: No Pets and animals: Yes Pets & animals: cat(s) Leisure activites: music, games and other Leisure activities details: watch a lot of movies Sexually active: No Do you think of yourself as: Straight/Heterosexual Current gender identity: Female Aparna/Mormon: Spiritism Special aparna needs: No Agree to transfusion: Yes Female Reproductive History: Para: 2 Spontaneous abortions: Yes (10) Physical Exam 2 Const: COMMON NORMALS: no acute distress, patient oriented x3, alert and well nourished HENMT: COMMON NORMALS: normocephalic HEAD & SCALP: normocephalic Eye: COMMON NORMALS: Equal, round and reactive pupils present, EOMs intact bilaterally and conjunctivae normal CONJUNCTIVA: Yes conjunctivae normal P UPIL: Yes Equal, round and reactive pupils present Neck/C-Spine: COMMON NORMALS: full ROM, no lymphadenopathy, supple, no meningeal signs, no JVD and Thyroid normal THYROID: Thyroid normal Chest: COMMONS NORMALS: normal inspection of the chest and normal palpation of entire chest wall Resp: COMMON NORMALS: normal respiratory effort, No retractions, No use of accessory muscles, clear to auscultation bilaterally and percussion normal A USCULTATION: clear to auscultation bilaterally PERCUSSION: percussion normal Cardio: COMMON NORMALS: no JVD GI: COMMON NORMALS: Normal to inspection, nondistended, normoactive bowel sounds present, Soft to palpation, non-tender, No hepatosplenomegaly present, no masses and no bruits PALPATION: Yes Soft to palpation and Yes No hepatosplenomegaly present Extremity: NARRATIVE EXTREMITY EXAM: 3+ Pitting edema bilateral lower ext Neuro: COMMON NORMALS: patient oriented x3 SENSORIUM/ORIENTATION: Yes alert MENINGEAL SIGNS: Yes no meningeal signs Skin: COMMON NORMALS: no rashes or lesions noted, turgor normal and no jaundice GENERAL SKIN EXAM: no rashes or lesions noted and turgor normal Course 2 Vital Signs: Vital signs: Vital Signs Temperature 98.7 F 06/21/24 23:40 Pulse Rate 65 06/22/24 03:37 Respiratory Rate 18 06/22/24 03:37 Blood Pressure 142/69 06/22/24 03:37 Pulse Oximetry 100 06/22/24 03:37 Oxygen Delivery Me thod Room Air 06/22/24 03:37 MDM - General Adult Medical Decision Making 1. Lower Extremity Edema likely secondary to Heart Failure exacerbation: - Plan for IV placement and administration of IV Lasix - Will obtain basic metabolic panel to assess kidney function and electrolytes, particularly given cramping symptoms suggesting possible electrolyte imbalance - Consider outpatient follow-up for cardiac evaluation including echocardiogram 2. Chronic Heart Failure: - Will need to establish care with local provider for ongoing management - Consider reinitiation of oral diuretic therapy based on response to current intervention - Patient education provided regarding importance of medication compliance and regular monitoring Lab Data 06/22/24 03:00 06/22/24 03:00 Radiology Impressions Chest X-Ray 06/21/24 23:11 IMPRESSION: Increased interstitial and linear opacities in the lower hemithoraces bilaterally, left more prominent than right may represent pulmonary edema although a bilateral basilar interstitial pneumonitis or atelectasis can not excluded. Laboratory Results WBC 3.05 10^3/uL (3.29-11.43) L 06/22/24 03:00 RBC 3.13 10^6/uL (3.85-5.65) L 06/22/24 03:00 Hgb 9.40 g/dL (11.27-16.99) L 06/22/24 03:00 Hct 28.0 % (36-47) L 06/22/24 03:00 MCV 89.5 fl (85-98) 06/22/24 03:00 MCH 30.0 pg (27-33) 06/22/24 03:00 MCHC 33.6 g/dL (30-55) 06/22/24 03:00 RDW 14.6 % (12.1-15.1) 06/22/24 03:00 Plt Count 69 10^3/cmm (157-399) L 06/22/24 03:00 MPV 8.8 fL (7.4-10.4) 06/22/24 03:00 Neut % (Auto) 63.9 % 06/22/24 03:00 Lymph % (Auto) 24.6 % 06/22/24 03:00 [place] % (Auto) 8.5 % 06/22/24 03:00 Eos % (Auto) 2.3 % 06/22/24 03:00 Baso % (Auto) 0.7 % 06/22/24 03:00 Neut # (Auto) 1.95 10^3/uL (1.8-7.7) 06/22/24 03:00 Lymph # (Auto) 0.8 10^3/uL (0.8-4.8) 06/22/24 03:00 [place] # (Auto) 0.3 10^3/uL (0.2-0.9) 06/22/24 03:00 Eos # (Auto) 0.1 10^3/uL (0.0-0.8) 06/22/24 03:00 Baso # (Auto) 0.0 10^3/uL (0.0-0.1) 06/22/24 03:00 Nucleated RBC % (auto) 0 % 06/22/24 03:00 Nucleated RBCs # 0.0 /100WBC 06/22/24 03:00 Sodium 141 mmol/L (136-145) 06/22/24 03:00 Potassium 3.4 mmol/L (3.5-5.1) L 06/22/24 03:00 Chloride 108 mmol/L (98-107) H 06/22/24 03:00 Carbon Dioxide 24 mmol/L (22-29) 06/22/24 03:00 Anion Gap 12.4 (5-19) 06/22/24 03:00 BUN 11 mg/dL (6-20) 06/22/24 03:00 Creatinine 0.5 mg/dL (0.5-0.9) 06/22/24 03:00 GFR Calculation 127.2 mL/min (90-130) 06/22/24 03:00 Glucose 85 mg/dL (65-115) 06/22/24 03:00 Calculated Osmolality 291 mOsm/kg (285-295) 06/22/24 03:00 Calcium 8.7 mg/dL (8.5-10.5) 06/22/24 03:00 Magnesium 1.7 mg/dL (1.7-2.3) 06/22/24 03:00 NT-Pro-B Natriuret Pep 154 pg/mL (0-125) H 06/22/24 03:00 All radiology interpretation(s) finalized by discharge Discharge Plan Discharge Patient Disposition: Home Clinical Impression: Congestive heart failure, Acute hypokalemia Condition: Stable Prescriptions: New furosemide [Lasix] 20 mg tablet 20 mg PO DAILY Qty: 14 0RF No Action albuterol sulfate 90 mcg/actuation HFA aerosol inhaler 2 puff INHALATION Q4H PRN (Reason: Shortness Of Breath Or Wheezing) multivitamin with folic acid [Thera] 400 mcg Tablet 1 tab PO DAILY 30 Days Qty: 30 0RF thiamine mononitrate (vit B1) [Vitamin B-1 (mononitrate)] 100 mg Tablet 100 mg PO DAILY 30 Days Qty: 30 1RF folic acid 1 mg Tablet 1 mg PO DAILY 30 Days Qty: 30 1RF fluoxetine 20 mg Capsule 20 mg PO DAILY 30 Days Qty: 30 1RF Vivitrol 380 mg suspension,extended rel recon 380 mg IM ONCE Qty: 1 0RF Discharge Orders: Discharge ED (Routine); Ordered 06/22/24 Ordered By: Paul Ivory Referrals: Aida Vincent PA [Primary Care Provider] - Discharge Diet: Low Salt Discharge Activity: Resume usual activity Patient Instructions: Opioid Safety, Pain Management Activity Restrictions/Additional Instructions: 1. Limit sodium, increase potassium rich food / drink. 2. Take Rx and follow up with PCP this week. 3. Return for new or worsening symptoms. 4. Start wearing compression hose. Print Language: Thai Coding Level of Care Code ED Industrial Technician for Rober Arellano
[2024-06-22 03:14] LABS: Basophils % 0.7 %; Eosinophils # 0.1 10^3/uL (0.0-0.8); Eosinophils % 2.3 %; Lymphocytes # 0.8 10^3/uL (0.8-4.8); Lymphocytes % 24.6 %; Mean Corpuscular HGB Conc 33.6 g/dL (30-55); Mean Corpuscular Volume 89.5 fl (85-98); Mean Platelet Volume 8.8 fL (7.4-10.4); Monocytes # 0.3 10^3/uL (0.2-0.9); Monocytes % 8.5 %; Neutrophils # 1.95 10^3/uL (1.8-7.7); Neutrophils % 63.9 %; Nucleated Red Blood Cells % 0 %; Platelet Count 69 10^3/cmm (157-399); Red Blood Count 3.13 10^6/uL (3.85-5.65); Red Cell Distribution Width 14.6 % (12.1-15.1); White Blood Count 3.05 10^3/uL (3.29-11.43)
[2024-06-22 03:23] VITALS: RESP 16; O2SAT 100
[2024-06-22] MEDS: fentaNYL 50 mcg/mL INJ 2mL IVP (03:23)
[2024-06-22] MEDS: FUROsemide 10 mg/mL SDV 4mL 40 MG IVP (03:24)
[2024-06-22 03:25] VITALS: BP 159/87; PULSE 70; RESP 16; O2SAT 100
[2024-06-22 03:37] VITALS: BP 142/69; PULSE 65; RESP 18; O2SAT 100
[2024-06-22 03:46] LABS: Anion Gap 12.4 (5-19); Blood Urea Nitrogen 11 mg/dL (6-20); Calcium 8.7 mg/dL (8.5-10.5); Carbon Dioxide 24 mmol/L (22-29); Chloride 108 mmol/L (98-107); Creatinine Clr Calc Pharmacy 140.4494; Glomerular Filtration Rate 127.2 mL/min (90-130); Glucose 85 mg/dL (65-115); Magnesium 1.7 mg/dL (1.7-2.3); NT Pro B Type Natriuretic Pept 154 pg/mL (0-125); Osmolality Calculated 291 mOsm/kg (285-295); Potassium 3.4 mmol/L (3.5-5.1); Sodium 141 mmol/L (136-145)
[2024-06-22 04:30] VITALS: BP 142/57; PULSE 62; RESP 16; O2SAT 100
== END 2024-06-22 04:33 | disposition home or self-care (01) ==
PROVIDERS: Emergency Provider Family Medicine; PCP Physician Assistant
DX: I50.9 Heart failure, unspecified (principal); E11.9 Type 2 diabetes mellitus without complications; E87.6 Hypokalemia; F17.210 Nicotine dependence, cigarettes, uncomplicated
CPT/HCPCS: 71045; 80048; 83735; 83880; 85025; 93005; 96374; 96375; 99284; J1940; J3010

== ENCOUNTER 2024-07-23 07:00 | Emergency (ER) | payer MEDICARE, MEDICAID, SELFPAY ==
[2024-07-03 09:40] VITALS: BP 147/78; BMI 37.0
[2024-07-23 07:08] VITALS: BP 142/91; PULSE 107; RESP 22; TEMP 36.4; O2SAT 97
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
[2024-07-23 07:43] LABS: Basophils % 1.2 %; Eosinophils # 0.2 10^3/uL (0.0-0.8); Eosinophils % 6.4 %; Hematocrit 30.5 % (36-47); Lymphocytes # 0.6 10^3/uL (0.8-4.8); Lymphocytes % 17.9 %; Mean Corpuscular HGB Conc 31.8 g/dL (30-55); Mean Corpuscular Hemoglobin 29.1 pg (27-33); Mean Corpuscular Volume 91.6 fl (85-98); Mean Platelet Volume 9.7 fL (7.4-10.4); Monocytes # 0.3 10^3/uL (0.2-0.9); Monocytes % 7.6 %; Neutrophils % 66.9 %; Nucleated Red Blood Cells % 0 %; Platelet Count 80 10^3/cmm (157-399); Red Blood Count 3.33 10^6/uL (3.85-5.65); Red Cell Distribution Width 16.2 % (12.1-15.1); White Blood Count 3.29 10^3/uL (3.29-11.43)
[2024-07-23 08:01] LABS: Alanine Aminotransferase 36 U/L (0-33); Albumin Level 3.3 g/dL (3.5-5.2); Alkaline Phosphatase 180 U/L (35-105); Aspartate Amino Transferase 82 U/L (0-32); Blood Urea Nitrogen 9 mg/dL (6-20); Calcium 8.4 mg/dL (8.5-10.5); Carbon Dioxide 22 mmol/L (22-29); Chloride 110 mmol/L (98-107); Creatinine Clr Calc Pharmacy 137.7822; Globulin 2.9 g/dL (1.3-4.6); Glomerular Filtration Rate 127.2 mL/min (90-130); Glucose 121 mg/dL (65-115); Osmolality Calculated 298 mOsm/kg (285-295); Sodium 144 mmol/L (136-145); Total Bilirubin 2.1 mg/dL (0.15-1.2); Total Protein 6.2 g/dL (6.6-8.7)
[2024-07-23 08:02] LABS: Anion Gap 15.5 (5-19); Potassium 3.5 mmol/L (3.5-5.1)
[2024-07-23] MEDS: LORazepam 2 mg Tablet PO (08:51)
[2024-07-23 09:07] VITALS: BP 133/84; PULSE 102; O2SAT 98
== END 2024-07-23 09:08 | disposition home or self-care (01) ==
PROVIDERS: Emergency Provider Family Medicine; PCP Physician Assistant
DX: S09.8XXA Other specified injuries of head, initial encounter (principal); Y04.8XXA Assault by other bodily force, initial encounter; F17.290 Nicotine dependence, other tobacco product, uncomplicated; E11.9 Type 2 diabetes mellitus without complications; I50.9 Heart failure, unspecified
CPT/HCPCS: 36415; 70450; 72125; 80053; 85025; 99284; J9999

== ENCOUNTER 2024-08-18 15:58 | Oncology outpatient (recurring) (ONCR) | payer MEDICARE, MEDICAID, SELFPAY ==
[2024-07-03 09:40] VITALS: BP 147/78; BMI 37.0
[2024-08-18 16:59] LABS: Basophils % 0.4 %; Eosinophils # 0.1 10^3/uL (0.0-0.8); Eosinophils % 2.5 %; Hematocrit 25.9 % (36-47); Lymphocytes # 0.7 10^3/uL (0.8-4.8); Lymphocytes % 23.9 %; Mean Corpuscular HGB Conc 32.8 g/dL (30-55); Mean Corpuscular Hemoglobin 29.5 pg (27-33); Mean Corpuscular Volume 89.9 fl (85-98); Mean Platelet Volume 9.1 fL (7.4-10.4); Monocytes # 0.3 10^3/uL (0.2-0.9); Monocytes % 8.8 %; Neutrophils # 1.82 10^3/uL (1.8-7.7); Nucleated Red Blood Cells % 0 %; Platelet Count 59 10^3/cmm (157-399); Red Blood Count 2.88 10^6/uL (3.85-5.65); Red Cell Distribution Width 15.2 % (12.1-15.1); Reticulocyte % 1.2 % (0.5-2.0); White Blood Count 2.84 10^3/uL (3.29-11.43)
[2024-08-18 17:27] LABS: Alanine Aminotransferase 31 U/L (0-33); Alkaline Phosphatase 137 U/L (35-105); Anion Gap 12.3 (5-19); Aspartate Amino Transferase 77 U/L (0-32); Blood Urea Nitrogen 8 mg/dL (6-20); Calcium 8.2 mg/dL (8.5-10.5); Carbon Dioxide 26 mmol/L (22-29); Chloride 110 mmol/L (98-107); Creatinine Clr Calc Pharmacy 139.5597; Ferritin 63 ng/mL (15-150); Globulin 2.4 g/dL (1.3-4.6); Glomerular Filtration Rate 127.2 mL/min (90-130); Glucose 96 mg/dL (65-115); Lactate Dehydrogenase 351 U/L (135-214); Osmolality Calculated 298 mOsm/kg (285-295); Partial Thromboplastin Time 35.2 SECONDS (23.9-36.7); Potassium 3.3 mmol/L (3.5-5.1); Sodium 145 mmol/L (136-145); Total Protein 5.4 g/dL (6.6-8.7)
[2024-08-18 17:45] LABS: Folate Level 8.5 ng/mL (4.8-37.3)
[2024-08-18 22:42] LABS: Vitamin B12 1013 pg/mL (232-1245)
[2024-08-20 04:56] LABS: PROTEIN, TOTAL 5.2 g/dL (6.1-8.1)
[2024-08-20 11:40] LABS: KAPPA LIGHT CHAIN, FREE, SERUM 36.9 mg/L (3.3-19.4); KAPPA/LAMBDA LIGHT CHAINS FREE 1.45 (0.26-1.65); LAMBDA LIGHT CHAIN, FREE, SERU 25.5 mg/L (5.7-26.3)
[2024-08-21 09:13] LABS: ALBUMIN 2.9 g/dL (3.8-4.8); ALPHA 1 GLOBULIN 0.2 g/dL (0.2-0.3); ALPHA 2 GLOBULIN 0.4 g/dL (0.5-0.9); BETA 1 GLOBULIN 0.4 g/dL (0.4-0.6); BETA 2 GLOBULIN 0.3 g/dL (0.2-0.5)
[2024-08-25 16:39] LABS: Immunofixation Serum Normal pattern.
== END 2024-09-06 23:59 | disposition home or self-care (01) ==
LOC: ONCMED 16:02
PROVIDERS: PCP Physician Assistant; Visit Provider Internal Medicine
DX: D61.818 Other pancytopenia (principal); D50.9 Iron deficiency anemia, unspecified; R79.89 Other specified abnormal findings of blood chemistry; I50.9 Heart failure, unspecified; F17.210 Nicotine dependence, cigarettes, uncomplicated; D69.6 Thrombocytopenia, unspecified; F10.21 Alcohol dependence, in remission; K76.6 Portal hypertension
CPT/HCPCS: 36415; 80053; 82607; 82728; 82746; 83010; 83615; 83883; 84155; 84165; 85025; 85045; 85610; 85730; 86334; 99204

== ENCOUNTER 2024-09-11 23:08 | Emergency (ER) | payer MEDICARE, MEDICAID, SELFPAY ==
[2024-07-03 09:40] VITALS: BP 147/78; BMI 37.0
[2024-09-11 23:18] VITALS: BP 142/86; PULSE 90; RESP 18; TEMP 36.2; O2SAT 97
== END 2024-09-12 00:51 | disposition left against medical advice (07) ==
PROVIDERS: Emergency Provider Family Medicine; PCP Physician Assistant
DX: Z53.21 Procedure and treatment not carried out due to patient leaving prior to being seen by health care provider (principal)

== ENCOUNTER 2024-09-12 15:00 | Emergency (ER) | payer MEDICARE, MEDICAID, SELFPAY ==
[2024-07-03 09:40] VITALS: BP 147/78; BMI 37.0
[2024-09-12 15:15] VITALS: BP 188/95; PULSE 124; RESP 18; TEMP 36.9; O2SAT 96
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
[2024-09-12] MEDS: acetaminophen 325 mg Tablet 650 MG PO (16:48)
[2024-09-12] MEDS: ondansetron hcl ODT 4 mg Tab PO (16:48)
== END 2024-09-12 16:57 | disposition home or self-care (01) ==
PROVIDERS: Emergency Provider Student in an Organized Health Care Education/Training Program; PCP Physician Assistant
DX: F43.9 Reaction to severe stress, unspecified (principal); Z91.51 Personal history of suicidal behavior; F17.210 Nicotine dependence, cigarettes, uncomplicated; E11.9 Type 2 diabetes mellitus without complications; I50.9 Heart failure, unspecified
CPT/HCPCS: 99283; J9999; Q0162

== ENCOUNTER 2024-10-04 21:12 | Emergency (ER) | payer MEDICARE, MEDICAID, SELFPAY ==
--- OUTSIDE RECORDS SUMMARY | 2024-02-02 04:00 | XMS_ITS ---
Author Organization [facility] Address [address] [place] [address] Care Team Providers Care Elevator Runner Name Role Phone Joseph Lewis MD Primary Care Provider Zane Joiner Unavailable [phone] ELROY BOOTHE Unavailable Unavailable Migration, Provider Unavailable Unavailable REASON FOR VISIT EMR-[facility] Encounters Encounter Location Date Provider Diagnosis Migrated_Facility 0 0 02/02/2024 Provider Migration Plan Of Treatment Medication Medication Name Sig Start Date Stop Date Notes Zubsolv 5.7-1.4 mg sublingual tablet, sublingual 1 Tablet Twice a Day 02/20/2019 03/22/2019 *Reorder from [facility] for eRx and Interaction Alerts* Progress Notes * Kay GAMBOA MDOB:1965 (59 yo F)Acc No.[id number]:02/02/2024 Patient: Elva Kay RODRIGUEZ :1965 A ge:58 Y S ex:Female Address:[address] [place] [address] * Refills Stop Zubsolv 5.7-1.4 mg sublingual tablet, sublingual, 1 Tablet Twice a Day Subjective: * Chief Complaints: * E MR-Luke * Medical History: * Surgical History: * Hospitalization/Major Diagno stic Procedure: * Medications: Objective: * Vitals: * Physical Examination: Assessment: Plan: * Treatment: * Procedure Codes: * * Date:
--- OUTSIDE RECORDS SUMMARY | 2024-02-03 04:00 | XMS_ITS ---
Author Organization [facility] Address [address] [place] [address] Care Team Providers Care Designated Broker Name Role Phone Joseph Lewis MD Primary Care Provider Unavaila Zane Grajeda Unavailable [phone] ELROY BOOTHE Unavailable Unavailable Migration, Provider Unavailable Unavailable Allergies Allergen (clinical drug ingredient) Drug/Non Drug Allergy documented on EMR Reaction Allergy Type Onset Date Status Aspirin (ASA) (uncoded) Unknown Allergy 05/28/2008 Inactive acetaminophen Acetaminophen , Drug Allergy Active aspirin Aspirin , Drug Allergy Active ibuprofen Ibuprofen Unknown Drug Allergy 05/28/2008 Active sumatriptan Sumatriptan , Drug Allergy Act bi REASON FOR VISIT [facility] Encounters Encounter Location Date Provider Diagnosis Migrated_Facility 0 0 02/03/2024 Provider Migration Plan Of Treatment No Information Progress Notes * Kay CALLES MDOB:1965 (59 yo F)Acc No.[id number]:02/03/2024 Patient: Elva RODRIGUEZKay :1965 A ge:58 Y S ex:Female Address:[address] [place] [address] Subjective: * Chief Complaints: * E MR-Luke * Medical History: * Surgical History: A ppendectomy Biopsy of Bone Marrow Carpal tunnel surgery Gallbladder surgery Hysterectomy Laminectomy Tonsillectomy * Hospitalization/Major Diagno stic Procedure: * Family History: M igrated Family History: [...] smoker, W orking currently? - No. * Medications: * Allergies: A cetaminophen: , - AllergyAspirin: , - AllergyIbuprofen: Allergy - Onset Date [id number]: , - Allergy Objective: * Vitals: * Physical Examination: Assessment: Plan: * Treatment: * Procedure Codes: * * Date:
[2024-09-18 15:42] VITALS: BP 147/78; BMI 37.0
--- OUTSIDE RECORDS SUMMARY | 2024-10-04 21:17 | XMS_ITS | Encounter Summary ---
Author Organization [facility] Address [address] [place] [address] Care Team Providers Care Surgical Nurse Name Role Phone Areli Gurrola MD Primary Care Provider Encounter Details Date Type Department Care Team (Latest Contact Info) Description 06/07/2000 Outpatient Historical [facility] [address] [place] [address] Trell York MD [address] [place] [phone] Lumbago (Primary Dx); Open wound of foot except toe(s) alone, without mention of complication Social History Tobacco Use Types Packs/Day Years Used Date Smoking Tobacco: Never Assessed Comments Unknown Sex and Gender Information Value Date Recorded Sex Assigned at Not on file Legal Sex Female 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 Gender Identity Not on file Sexual Orientation Not on file documented as of this encounter Plan of Treatment Not on file documented as of this encounter Visit Diagnoses Diagnosis Lumbago- Primary Open wound of foot except toe(s) alone, without mention of complication documented in this encounter Additional Health Concerns Infection Onset Date Last Indicated Resolved Time R/O COVID-19 01/31/2020 01/31/2020 02/02/2020 10:3 2 AM CDT documented as of this encounter Care Teams Surgical Nurse Relationship Specialty Start Date End Date Areli Gurrola MD [address] [place] [address] PCP - General Specialist 08/12/19 documented as of this encounter
--- OUTSIDE RECORDS SUMMARY | 2024-10-04 21:17 | XMS_ITS | Encounter Summary ---
Author Organization [facility] Address [address] [facility] Attn: [place] [address] Care Team Providers Care Alcohol Law Enforcement Agent Name Role Phone Areli Gurrola MD Primary Care Provider Encounter Details Date Type Department Care Team (Late st Contact Info) Description 05/21/2000 Outpatient Historical Michael Larios MD NO ADDRESS ON FILE Social History Tobacco Use Types Packs/Day Years Used Date Smoking Tobacco: Never Assessed Comments Unknown Sex and Gender Information Value Date Recorded Sex Assigned at Not on file Legal Sex Female 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 Gender Identity Not on file Sexual Orientation Not on file documented as of this encounter Plan of Treatment Not on file documented as of this encounter Visit Diagnoses Not on filedocumented in this encounter Additional Health Concerns Infection Onset Date Last Indicated Resolved Time R/O COVID-19 01/31/2020 01/31/2020 02/02/2020 10:3 2 AM CDT documented as of this encounter Care Teams Alcohol Law Enforcement Agent Relationship Specialty Start Date End Date Areli Gurrola MD [address] [facility] [place] [address] PCP - General Specialist 08/12/19 documented as of this encounter
--- OUTSIDE RECORDS SUMMARY | 2024-10-04 21:17 | XMS_ITS | Encounter Summary ---
Author Organization 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 Gender Identity Not on file Sexual Orientation Not on file documented as of this encounter Plan of Treatment Not on file documented as of this encounter Visit Diagnoses Not on filedocumented in this encounter Additional Health Concerns Infection Onset Date Last Indicated Resolved Time R/O COVID-19 01/31/2020 01/31/2020 02/02/2020 10:3 2 AM CDT documented as of this encounter Care Teams Apron Cleaner Relationship Specialty Start Date End Date Areli Gurrola MD [address] [place] [address] PCP - General Specialist 08/12/19 documented as of this encounter
--- OUTSIDE RECORDS SUMMARY | 2024-10-04 21:17 | XMS_ITS | Encounter Summary ---
Author Organization [facility] Address [address] [place] [address] Care Team Providers Care Wellness Program Administrator Name Role Phone Areli Gurrola MD Primary Care Provider Encounter Details Date Type Department Care Team (Latest Contact Info) Description 04/23/2000 Outpatient Historical [facility] [address] [place] [address] Trell York MD [address] [place] [phone] Cervicalgia (Primary Dx); Other convulsions Social History Tobacco Use Types Packs/Day Years Used Date Smoking Tobacco: Never Assessed Comments Unknown Sex and Gender Information Value Date Recorded Sex Assigned at Not on file Legal Sex Female 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 PENSIONS 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 Gender Identity Not on file Sexual Orientation Not on file documented as of this encounter Plan of Treatment Not on file documented as of this encounter Visit Diagnoses Diagnosis Cervicalgia- Primary Other convulsions documented in this encounter Additional Health Concerns Infection Onset Date Last Indicated Resolved Time R/O COVID-19 01/31/2020 01/31/2020 02/02/2020 10:3 2 AM CDT documented as of this encounter Care Teams Wellness Program Administrator Relationship Specialty Start Date End Date Areli Gurrola MD [address] [place] [phone] PCP - General Specialist 08/12/19 documented as of this encounter
--- OUTSIDE RECORDS SUMMARY | 2024-10-04 21:17 | XMS_ITS | Encounter Summary ---
Author Organization [facility] Address [address] [place] [address] Care Team Providers Care Bowling Pin Refinisher Name Role Phone Areli Gurrola MD Primary Care Provider Encounter Details Date Type Department Care Team (Latest Contact Info) Description 03/14/2000 Outpatient Historical [facility] [address] [place] [address] Trell York MD [address] [place] [phone] Unspecified disorder of female genital organs (Primary Dx); Lumbago Social History Tobacco Use Types Packs/Day Years Used Date Smoking Tobacco: Never Assessed Comments Unknown Sex and Gender Information Value Date Recorded Sex Assigned at Not on file Legal 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 Female 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 TEACHER Gender Identity Not on file Sexual Orientation Not on file documented as of this encounter Plan of Treatment Not on file documented as of this encounter Visit Diagnoses Diagnosis Unspecified disorder of female genital organs- Primary Lumbago documented in this encounter Additional Health Concerns Infection Onset Date Last Indicated Resolved Time R/O COVID-19 01/31/2020 01/31/2020 02/02/2020 10:3 2 AM CDT documented as of this encounter Care Teams Bowling Pin Refinisher Relationship Specialty Start Date End Date Areli Gurrola MD [address] [facility] [place] [place] [address] PCP - General Specialist 08/12/19 documented as of this encounter
--- OUTSIDE RECORDS SUMMARY | 2024-10-04 21:18 | XMS_ITS | Encounter Summary ---
Author Organization [facility] Address [address] [facility] Attn: [place] [address] Care Team Providers Care Nipping Machine Operator Name Role Phone Areli Gurrola MD Primary Care Provider Encounter Details Date Type Department Care Team (Late st Contact Info) Description 11/10/1999 Outpatient Historical Joseph Ramos MD [address] [place] [address] Social History Tobacco Use Types Packs/Day Years Used Date Smoking Tobacco: Never Assessed Comments Unknown Sex and Gender Information Value Date Recorded Sex Assigned at Not on file Legal Sex Female 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 LABORER Gender Identity Not on file Sexual Orientation Not on file documented as of this encounter Plan of Treatment Not on file documented as of this encounter Visit Diagnoses Not on filedocumented in this encounter Additional Health Concerns Infection Onset Date Last Indicated Resolved Time R/O COVID-19 01/31/2020 01/31/2020 02/02/2020 10:3 2 AM CDT documented as of this encounter Care Teams Nipping Machine Operator Relationship Specialty Start Date End Date Areli Gurrola MD [address] [facility] [place] [address] PCP - General Specialist 08/12/19 documented as of this encounter
--- OUTSIDE RECORDS SUMMARY | 2024-10-04 21:18 | XMS_ITS | Encounter Summary ---
Author Organization [facility] Address [address] [place] [address] Care Team Providers Care House Rn Name Role Phone Areli Gurrola MD Primary Care Provider Encounter Details Date Type Department Care Team (Latest Contact Info) Description 09/01/1999 Outpatient Historical [facility] Joseph Ramos MD [address] [place] [address] Pain in joint, hand (Primary Dx); Follow-up examination following surgery Social History Tobacco Use Types Packs/Day Years Used Date Smoking Tobacco: Never Assessed Comments Unknown Sex and Gender Information Value Date Recorded Sex Assigned at Not on file Legal Sex Female 3:40 AM HOG HANDLER Gender Identity Not on file Sexual Orientation Not on file documented as of this encounter Plan of Treatment Not on file documented as of this encounter Visit Diagnoses Diagnosis Pain in joint, hand- Primary Follow-up examination following surgery documented in this encounter Additional Health Concerns Infection Onset Date Last Indicated Resolved Time R/O COVID-19 01/31/2020 01/31/2020 02/02/2020 10:3 2 AM CDT documented as of this encounter Care Teams House Rn Relationship Specialty Start Date End Date Areli Gurrola MD [address] [place] [address] PCP - General Specialist 08/12/19 documented as of this encounter
--- OUTSIDE RECORDS SUMMARY | 2024-10-04 21:18 | XMS_ITS | Encounter Summary ---
Author Organization [facility] Address [address] [place] [address] Care Team Providers Care Vegetable Farm Worker Name Role Phone Areli Gurrola MD Primary Care Provider Encounter Details Date Type Department Care Team (Latest Contact Info) Description 08/09/1999 Outpatient Historical [facility] [address] [place] [address] Trell York MD [address] [place] [phone] Stricture of cervix (Primary Dx) Social History Tobacco Use Types Packs/Day Years Used Date Smoking Tobacco: Never Assessed Comments Unknown Sex and Gender Information Value Date Recorded Sex Assigned at Not on file Legal Sex Female 3:[address] LIGHT CLEANER Gender Identity Not on file Sexual Orientation Not on file documented as of this encounter Plan of Treatment Not on file documented as of this encounter Visit Diagnoses Diagnosis Stricture of cervix- Primary Stricture and stenosis of cervix documented in this encounter Additional Health Concerns Infection Onset Date Last Indicated Resolved Time R/O COVID-19 01/31/2020 01/31/2020 02/02/2020 10:3 2 AM CDT documented as of this encounter Care Teams Vegetable Farm Worker Relationship Specialty Start Date End Date Areli Gurrola MD [address] [facility] [place] [phone] PCP - General Specialist 08/12/19 documented as of this encounter
--- OUTSIDE RECORDS SUMMARY | 2024-10-04 21:18 | XMS_ITS | Encounter Summary ---
Author Organization [facility] Address [address] [place] [address] Care Team Providers Care Manager Investigations Name Role Phone Areli Gurrola MD Primary Care Provider Encounter Details Date Type Department Care Team (Latest Contact Info) Description 06/08/1999 Outpatient Historical [facility] [place], Trell Pascual MD [address] [place] [address] Obesity, unspecified (Primary Dx); Encounter for long-term (current) use of other medications Social History Tobacco Use Types Packs/Day Years Used Date Smoking Tobacco: Never Assessed Comments Unknown Sex and Gender Information Value Date Recorded Sex Assigned at Not on file Legal Sex Female 3:40 AM TENTER Gender Identity Not on file Sexual Orientation Not on file documented as of this encounter Plan of Treatment Not on file documented as of this encounter Visit Diagnoses Diagnosis Obesity, unspecified- Primary Encounter for long-term (current) use of other medications documented in this encounter Additional Health Concerns Infection Onset Date Last Indicated Resolved Time R/O COVID-19 01/31/2020 01/31/2020 02/02/2020 10:3 2 AM CDT documented as of this encounter Care Teams Manager Investigations Relationship Specialty Start Date End Date Areli Gurrola MD [address] [facility] [place] [address] PCP - General Specialist 08/12/19 documented as of this encounter
--- OUTSIDE RECORDS SUMMARY | 2024-10-04 21:18 | XMS_ITS | Encounter Summary ---
Author Organization [facility] Address [address] [facility] Attn: [place] [phone] Care Team Providers Care Watchguard Name Role Phone Areli Gurrola MD Primary Care Provider Encounter Details Date Type Department Care Team (Late st Contact Info) Description 06/11/2001 Inpatient Historical Renan Martinez MD [address] [place] [phone] Social History Tobacco Use Types Packs/Day Years Used Date Smoking Tobacco: Never Assessed Comments Unknown Sex and Gender Information Value Date Recorded Sex Assigned at Not on file Legal Sex Female 3:40 AM STRATEGIC MANAGER Gender Identity Not on file Sexual Orientation Not on file documented as of this encounter Plan of Treatment Not on file documented as of this encounter Visit Diagnoses Not on filedocumented in this encounter Additional Health Concerns Infection Onset Date Last Indicated Resolved Time R/O COVID-19 01/31/2020 01/31/2020 02/02/2020 10:3 2 AM CDT documented as of this encounter Care Teams Watchguard Relationship Specialty Start Date End Date Areli Gurrola MD [address] [place] [place] [address] PCP - General Specialist 08/12/19 documented as of this encounter
--- OUTSIDE RECORDS SUMMARY | 2024-10-04 21:18 | XMS_ITS | Encounter Summary ---
Author Organization [facility] Address [address] [facility] Attn: [place] [address] Care Team Providers Care Supervisor Game Farm Name Role Phone Areli Gurrola MD Primary Care Provider Encounter Details Date Type Department Care Team (Late st Contact Info) Description 06/23/1999 Outpatient Historical Gee Schulz MD NO ADDRESS ON FILE Social History Tobacco Use Types Packs/Day Years Used Date Smoking Tobacco: Never Assessed Comments Unknown Sex and Gender Information Value Date Recorded Sex Assigned at Not on file Legal Sex Female 3:40 AM HISTOTECHNICIAN Gender Identity Not on file Sexual Orientation Not on file documented as of this encounter Plan of Treatment Not on file documented as of this encounter Visit Diagnoses Not on filedocumented in this encounter Additional Health Concerns Infection Onset Date Last Indicated Resolved Time R/O COVID-19 01/31/2020 01/31/2020 02/02/2020 10:3 2 AM CDT documented as of this encounter Care Teams Supervisor Game Farm Relationship Specialty Start Date End Date Areli Gurrola MD [address] [place] [address] PCP - General Specialist 08/12/19 documented as of this encounter
--- OUTSIDE RECORDS SUMMARY | 2024-10-04 21:18 | XMS_ITS | Encounter Summary ---
Author Organization [facility] Address [address] [place] [address] Care Team Providers Care Head Of Drama Name Role Phone Areli Gurrola MD Primary Care Provider Encounter Details Date Type Department Care Team (Latest Contact Info) Description 01/07/2001 Outpatient Historical [facility] [address] [place] [address] Trell [place] MD [address] [place] [phone] Unspecified disorder of female genital organs (Primary Dx); Cervicalgia; Lumbago Social History Tobacco Use Types Packs/Day Years Used Date Smoking Tobacco: Never Assessed Comments Unknown Sex and Gender Information Value Date Recorded Sex Assigned at Not on file Legal Sex Female 3:40 AM RESIDENTIAL COLLECTIONS Gender Identity Not on file Sexual Orientation Not on file documented as of this encounter Plan of Treatment Not on file documented as of this encounter Visit Diagnoses Diagnosis Unspecified disorder of female genital organs- Primary Cervicalgia Lumbago documented in this encounter Additional Health Concerns Infection Onset Date Last Indicated Resolved Time R/O COVID-19 01/31/2020 01/31/2020 02/02/2020 10:3 2 AM CDT documented as of this encounter Care Teams Head Of Drama Relationship Specialty Start Date End Date Areli Gurrloa MD [address] [place] [address] PCP - General Specialist 08/12/19 documented as of this encounter
--- OUTSIDE RECORDS SUMMARY | 2024-10-04 21:18 | XMS_ITS | Encounter Summary ---
Author Organization [facility] Address [address] [place] [address] Care Team Providers Care Educational Fundraising Director Name Role Phone Areli Gurrola MD Primary Care Provider Encounter Details Date Type Department Care Team (Latest Contact Info) Description 05/09/1999 Outpatient Historical [facility] [address] [place] [address] Trell [place] MD [address] [place] [phone] Cervical spinal stenosis (Primary Dx); Contusion of elbow Social History Tobacco Use Types Packs/Day Years Used Date Smoking Tobacco: Never Assessed Comments Unknown Sex and Gender Information Value Date Recorded Sex Assigned at Not on file Legal Sex Female 3:40 AM CALL CENTER COORDINATOR Gender Identity Not on file Sexual Orientation Not on file documented as of this encounter Plan of Treatment Not on file documented as of this encounter Visit Diagnoses Diagnosis Cervical spinal stenosis- Primary Spinal stenosis in cervical region Contusion of elbow documented in this encounter Additional Health Concerns Infection Onset Date Last Indicated Resolved Time R/O COVID-19 01/31/2020 01/31/2020 02/02/2020 10:3 2 AM CDT documented as of this encounter Care Teams Educational Fundraising Director Relationship Specialty Start Date End Date Areli Gurrola MD [address] [place] [address] PCP - General Specialist 08/12/19 documented as of this encounter
--- OUTSIDE RECORDS SUMMARY | 2024-10-04 21:18 | XMS_ITS | Encounter Summary ---
Author Organization [facility] Address [address] [place] [address] Care Team Providers Care Grinding Machine Operator Automatic Name Role Phone Areli Gurrola MD Primary Care Provider Encounter Details Date Type Department Care Team (Latest Contact Info) Description 12/27/1999 Outpatient Historical [facility] [address] [place] [address] Trell [place] MD [address] [place] [phone] Migraine without aura, without mention of intractable migraine without mention of status migrainosus (Primary Dx); Lumbago Social History Tobacco Use Types Packs/Day Years Used Date Smoking Tobacco: Never Assessed Comments Unknown Sex and Gender Information Value Date Recorded Sex Assigned at Not on file Legal Sex Female 3:40 AM APARTMENT MAINTENANCE SUPERVISOR Gender Identity Not on file Sexual Orientation Not on file documented as of this encounter Plan of Treatment Not on file documented as of this encounter Visit Diagnoses Diagnosis Migraine without aura, without mention of intractable migraine without mention of status migrainosus- Primary Lumbago documented in this encounter Additional Health Concerns Infection Onset Date Last Indicated Resolved Time R/O COVID-19 01/31/2020 01/31/2020 02/02/2020 10:3 2 AM CDT documented as of this encounter Care Teams Grinding Machine Operator Automatic Relationship Specialty Start Date End Date Areli Gurrola MD [address] [facility] [place] [address] PCP - General Specialist 08/12/19 documented as of this encounter
--- OUTSIDE RECORDS SUMMARY | 2024-10-04 21:18 | XMS_ITS | Encounter Summary ---
Author Organization [facility] Address [address] [place] [address] Care Team Providers Care Satellite Specialist Name Role Phone Areli Gurrola MD Primary Care Provider Encounter Details Date Type Department Care Team (Latest Contact Info) Description 10/20/1999 Outpatient Historical [facility] Joseph Ramos MD [address] [place] [address] Carpal tunnel syndrome (Primary Dx) Social History Tobacco Use Types Packs/Day Years Used Date Smoking Tobacco: Never Assessed Comments Unknown Sex and Gender Information Value Date Recorded Sex Assigned at Not on file Legal Sex Female 3:40 AM HORSE DOCTOR Gender Identity Not on file Sexual Orientation Not on file documented as of this encounter Plan of Treatment Not on file documented as of this encounter Visit Diagnoses Diagnosis Carpal tunnel syndrome- Primary documented in this encounter Additional Health Concerns Infection Onset Date Last Indicated Resolved Time R/O COVID-19 01/31/2020 01/31/2020 02/02/2020 10:3 2 AM CDT documented as of this encounter Care Teams Satellite Specialist Relationship Specialty Start Date End Date Areli Gurrola MD [address] [facility] [place] [address] PCP - General Specialist 08/12/19 documented as of this encounter
--- OUTSIDE RECORDS SUMMARY | 2024-10-04 21:18 | XMS_ITS | Encounter Summary ---
Author Organization [facility] Address [address] [place] [address] Care Team Providers Care Sack Cleaning Hand Name Role Phone Areli Gurrola MD Primary Care Provider Encounter Details Date Type Department Care Team (Late st Contact Info) Description 05/23/1999 Outpatient Historical [facility] [address] [facility] [address] [place] [address] Trell Hines MD [address] [place] [address] Carpal tunnel syndrome (Primary Dx) Social History Tobacco Use Types Packs/Day Years Used Date Smoking Tobacco: Never Assessed Comments Unknown Sex and Gender Information Value Date Recorded Sex Assigned at Not on file Legal Sex Female 3:40 AM BOTTOM TURNING LATHE TENDER Gender Identity Not on file Sexual Orientation Not on file documented as of this encounter Plan of Treatment Not on file documented as of this encounter Visit Diagnoses Diagnosis Carpal tunnel syndrome- Primary documented in this encounter Additional Health Concerns Infection Onset Date Last Indicated Resolved Time R/O COVID-19 01/31/2020 01/31/2020 02/02/2020 10:3 2 AM CDT documented as of this encounter Care Teams Sack Cleaning Hand Relationship Specialty Start Date End Date Areli Gurrola MD [address] [place] [address] PCP - General Specialist 08/12/19 documented as of this encounter
--- OUTSIDE RECORDS SUMMARY | 2024-10-04 21:18 | XMS_ITS | Encounter Summary ---
Author Organization [facility] Address [address] [place] [address] Care Team Providers Care Vat Tender Name Role Phone Areli Gurrola MD Primary Care Provider Encounter Details Date Type Department Care Team (Latest Contact Info) Description 05/24/1999 Outpatient Historical [facility] [address] [place] [address] Trell [place] MD [address] [place] [phone] Edema (Primary Dx); Lumbago Social History Tobacco Use Types Packs/Day Years Used Date Smoking Tobacco: Never Assessed Comments Unknown Sex and Gender Information Value Date Recorded Sex Assigned at Not on file Legal Sex Female 3:40 AM NURSING SERVICE ADMINISTRATOR Gender Identity Not on file Sexual Orientation Not on file documented as of this encounter Plan of Treatment Not on file documented as of this encounter Visit Diagnoses Diagnosis Edema- Primary Lumbago documented in this encounter Additional Health Concerns Infection Onset Date Last Indicated Resolved Time R/O COVID-19 01/31/2020 01/31/2020 02/02/2020 10:3 2 AM CDT documented as of this encounter Care Teams Vat Tender Relationship Specialty Start Date End Date Areli Gurrola MD [address] [facility] [place] [place] [address] PCP - General Specialist 08/12/19 documented as of this encounter
--- OUTSIDE RECORDS SUMMARY | 2024-10-04 21:18 | XMS_ITS | Encounter Summary ---
Author Organization [facility] Address [address] [place] [address] Care Team Providers Care Picker / Packer Name Role Phone Areli Gurrola MD Primary Care Provider Encounter Details Date Type Department Care Team (Latest Contact Info) Description 06/20/1999 Outpatient Historical [facility] Joseph Ramos MD [address] [place] [address] Pain in joint, hand (Primary Dx) Social History Tobacco Use Types Packs/Day Years Used Date Smoking Tobacco: Never Assessed Comments Unknown Sex and Gender Information Value Date Recorded Sex Assigned at Not on file Legal Sex Female 3:40 AM MEDICAL MANAGER Gender Identity Not on file Sexual Orientation Not on file documented as of this encounter Plan of Treatment Not on file documented as of this encounter Visit Diagnoses Diagnosis Pain in joint, hand- Primary documented in this encounter Additional Health Concerns Infection Onset Date Last Indicated Resolved Time R/O COVID-19 01/31/2020 01/31/2020 02/02/2020 10:3 2 AM CDT documented as of this encounter Care Teams Picker / Packer Relationship Specialty Start Date End Date Areli Gurrola MD [address] [place] [address] PCP - General Specialist 08/12/19 documented as of this encounter
--- OUTSIDE RECORDS SUMMARY | 2024-10-04 21:18 | XMS_ITS | Encounter Summary ---
Author Organization [facility] Address [address] [place] [address] Care Team Providers Care Senior Software Qa Analyst Name Role Phone Areli Gurrola MD Primary Care Provider Encounter Details Date Type Department Care Team (Latest Contact Info) Description 10/27/1999 Outpatient Historical [facility] [address] [place] [address] Trell [place] MD [address] [place] [phone] Lumbago (Primary Dx) Social History Tobacco Use Types Packs/Day Years Used Date Smoking Tobacco: Never Assessed Comments Unknown Sex and Gender Information Value Date Recorded Sex Assigned at Not on file Legal Sex Female 3:40 AM SPECIAL TECHNICAL OPERATIONS OFFICER Gender Identity Not on file Sexual Orientation Not on file documented as of this encounter Plan of Treatment Not on file documented as of this encounter Visit Diagnoses Diagnosis Lumbago- Primary documented in this encounter Additional Health Concerns Infection Onset Date Last Indicated Resolved Time R/O COVID-19 01/31/2020 01/31/2020 02/02/2020 10:3 2 AM CDT documented as of this encounter Care Teams Senior Software Qa Analyst Relationship Specialty Start Date End Date Areli Gurrola MD [address] [facility] [place] [address] PCP - General Specialist 08/12/19 documented as of this encounter
--- OUTSIDE RECORDS SUMMARY | 2024-10-04 21:18 | XMS_ITS | Encounter Summary ---
Author Organization [facility] Address [address] [facility] Attn: [place] [address] Care Team Providers Care Director Learning Name Role Phone Areli Gurrola MD Primary Care Provider Encounter Details Date Type Department Care Team (Late st Contact Info) Description 03/15/1999 Outpatient Historical Non-Staff, Physician NO ADDRESS ON FILE Social History Tobacco Use Types Packs/Day Years Used Date Smoking Tobacco: Never Assessed Comments Unknown Sex and Gender Information Value Date Recorded Sex Assigned at Not on file Legal Sex Female 3:40 AM PAPER COATING SUPERVISOR Gender Identity Not on file Sexual Orientation Not on file documented as of this encounter Plan of Treatment Not on file documented as of this encounter Visit Diagnoses Not on filedocumented in this encounter Additional Health Concerns Infection Onset Date Last Indicated Resolved Time R/O COVID-19 01/31/2020 01/31/2020 02/02/2020 10:3 2 AM CDT documented as of this encounter Care Teams Director Learning Relationship Specialty Start Date End Date Areli Gurrola MD [address] [facility] [place] [address] PCP - General Specialist 08/12/19 documented as of this encounter
--- OUTSIDE RECORDS SUMMARY | 2024-10-04 21:18 | XMS_ITS | Encounter Summary ---
Author Organization [facility] Address [address] [place] [address] Care Team Providers Care Engineering Technical Analyst Name Role Phone Areli Gurrola MD Primary Care Provider Encounter Details Date Type Department Care Team (Latest Contact Info) Description 12/05/2000 Outpatient Historical [facility] [address] [place] [address] Trell [place] MD [address] [place] [phone] Lumbago (Primary Dx); Cervicalgia; Pain in joint, pelvic region and thigh Social History Tobacco Use Types Packs/Day Years Used Date Smoking Tobacco: Never Assessed Comments Unknown Sex and Gender Information Value Date Recorded Sex Assigned at Not on file Legal Sex Female 3:40 AM CASING MATERIAL WEIGHER Gender Identity Not on file Sexual Orientation Not on file documented as of this encounter Plan of Treatment Not on file documented as of this encounter Visit Diagnoses Diagnosis Lumbago- Primary Cervicalgia Pain in joint, pelvic region and thigh documented in this encounter Additional Health Concerns Infection Onset Date Last Indicated Resolved Time R/O COVID-19 01/31/2020 01/31/2020 02/02/2020 10:3 2 AM CDT documented as of this encounter Care Teams Engineering Technical Analyst Relationship Specialty Start Date End Date Areli Gurrola MD [address] [place] [address] PCP - General Specialist 08/12/19 documented as of this encounter
--- OUTSIDE RECORDS SUMMARY | 2024-10-04 21:18 | XMS_ITS | Encounter Summary ---
Author Organization [facility] Address [address] [facility] Attn: [place] [address] Care Team Providers Care Roll Cutting Operator Name Role Phone Areli Gurrola MD Primary Care Provider Encounter Details Date Type Department Care Team (Late st Contact Info) Description 08/19/1999 Outpatient Historical Joseph Ramos MD [address] [place] [address] Social History Tobacco Use Types Packs/Day Years Used Date Smoking Tobacco: Never Assessed Comments Unknown Sex and Gender Information Value Date Recorded Sex Assigned at Not on file Legal Sex Female 3:40 AM SUPPORT ENGINEER Gender Identity Not on file Sexual Orientation Not on file documented as of this encounter Plan of Treatment Not on file documented as of this encounter Visit Diagnoses Not on filedocumented in this encounter Additional Health Concerns Infection Onset Date Last Indicated Resolved Time R/O COVID-19 01/31/2020 01/31/2020 02/02/2020 10:3 2 AM CDT documented as of this encounter Care Teams Roll Cutting Operator Relationship Specialty Start Date End Date Areli Gurrola MD [address] [facility] [place] [address] PCP - General Specialist 08/12/19 documented as of this encounter
--- OUTSIDE RECORDS SUMMARY | 2024-10-04 21:18 | XMS_ITS | Encounter Summary ---
Author Organization [facility] Address [address] [place] [address] Care Team Providers Care Trimming Operator Name Role Phone Areli Gurrola MD Primary Care Provider Encounter Details Date Type Department Care Team (Latest Contact Info) Description 09/29/1999 Outpatient Historical [facility] [address] [place] [address] Trell [place] MD [address] [place] [phone] Obesity, unspecified (Primary Dx); Lumbago Social History Tobacco Use Types Packs/Day Years Used Date Smoking Tobacco: Never Assessed Comments Unknown Sex and Gender Information Value Date Recorded Sex Assigned at Not on file Legal Sex Female 3:40 AM FRONT DESK ASSISTANT Gender Identity Not on file Sexual Orientation Not on file documented as of this encounter Plan of Treatment Not on file documented as of this encounter Visit Diagnoses Diagnosis Obesity, unspecified- Primary Lumbago documented in this encounter Additional Health Concerns Infection Onset Date Last Indicated Resolved Time R/O COVID-19 01/31/2020 01/31/2020 02/02/2020 10:3 2 AM CDT documented as of this encounter Care Teams Trimming Operator Relationship Specialty Start Date End Date Areli Gurrola MD [address] [facility] [place] [place] [address] PCP - General Specialist 08/12/19 documented as of this encounter
--- OUTSIDE RECORDS SUMMARY | 2024-10-04 21:18 | XMS_ITS | Encounter Summary ---
Author Organization [facility] Address [address] [facility] Attn: [place] [address] Care Team Providers Care Block Stacker Name Role Phone Areli Gurrola MD Primary Care Provider Encounter Details Date Type Department Care Team (Late st Contact Info) Description 11/16/1999 Outpatient Historical Joseph Ramos MD [address] [place] [address] Social History Tobacco Use Types Packs/Day Years Used Date Smoking Tobacco: Never Assessed Comments Unknown Sex and Gender Information Value Date Recorded Sex Assigned at Not on file Legal Sex Female 3:40 AM ROADSIDE MECHANIC Gender Identity Not on file Sexual Orientation Not on file documented as of this encounter Plan of Treatment Not on file documented as of this encounter Visit Diagnoses Not on filedocumented in this encounter Additional Health Concerns Infection Onset Date Last Indicated Resolved Time R/O COVID-19 01/31/2020 01/31/2020 02/02/2020 10:3 2 AM CDT documented as of this encounter Care Teams Block Stacker Relationship Specialty Start Date End Date Areli Gurrola MD [address] [facility] [place] [address] PCP - General Specialist 08/12/19 documented as of this encounter
--- OUTSIDE RECORDS SUMMARY | 2024-10-04 21:18 | XMS_ITS | Encounter Summary ---
Author Organization [facility] Address [address] [place] [address] Care Team Providers Care Level Vial Sealer Name Role Phone Areli Gurrola MD Primary Care Provider Encounter Details Date Type Department Care Team (Latest Contact Info) Description 10/08/2000 Outpatient Historical [facility] [address] [place] [address] Trell [place] MD [address] [place] [phone] Sprain and strain of unspecified site of knee and leg (Primary Dx) Social History Tobacco Use Types Packs/Day Years Used Date Smoking Tobacco: Never Assessed Comments Unknown Sex and Gender Information Value Date Recorded Sex Assigned at Not on file Legal Sex Female 3:40 AM ESTHETICIAN FACIALIST Gender Identity Not on file Sexual Orientation Not on file documented as of this encounter Plan of Treatment Not on file documented as of this encounter Visit Diagnoses Diagnosis Sprain and strain of unspecified site of knee and leg- Primary documented in this encounter Additional Health Concerns Infection Onset Date Last Indicated Resolved Time R/O COVID-19 01/31/2020 01/31/2020 02/02/2020 10:3 2 AM CDT documented as of this encounter Care Teams Level Vial Sealer Relationship Specialty Start Date End Date Areli Gurrola MD [address] [facility] [place] [place] [address] PCP - General Specialist 08/12/19 documented as of this encounter
--- OUTSIDE RECORDS SUMMARY | 2024-10-04 21:18 | XMS_ITS | Encounter Summary ---
Author Organization [facility] Address [address] [place] [address] Care Team Providers Care Decay Control Operator Name Role Phone Areli Gurrola MD Primary Care Provider Encounter Details Date Type Department Care Team (Latest Contact Info) Description 06/08/1999 Outpatient Historical [facility] [address] [place] [address] Trell York MD [address] [place] [phone] Carpal tunnel syndrome (Primary Dx); Sprain of neck; Obesity, unspecified Social History Tobacco Use Types Packs/Day Years Used Date Smoking Tobacco: Never Assessed Comments Unknown Sex and Gender Information Value Date Recorded Sex Assigned at Not on file Legal Sex Female 3:40 AM SYNTHETIC RESIN OPERATOR Gender Identity Not on file Sexual Orientation Not on file documented as of this encounter Plan of Treatment Not on file documented as of this encounter Visit Diagnoses Diagnosis Carpal tunnel syndrome- Primary Sprain of neck Neck sprain and strain Obesity, unspecified documented in this encounter Additional Health Concerns Infection Onset Date Last Indicated Resolved Time R/O COVID-19 01/31/2020 01/31/2020 02/02/2020 10:3 2 AM CDT documented as of this encounter Care Teams Decay Control Operator Relationship Specialty Start Date End Date Areli Gurrola MD [address] [facility] [place] [address] PCP - General Specialist 08/12/19 documented as of this encounter
--- OUTSIDE RECORDS SUMMARY | 2024-10-04 21:18 | XMS_ITS | Encounter Summary ---
Author Organization [facility] Address [address] [place] [address] Care Team Providers Care Taxation Consultant Name Role Phone Areli Gurrola MD Primary Care Provider Encounter Details Date Type Department Care Team (Late st Contact Info) Description 04/11/1999 Outpatient Historical [facility] Social History Tobacco Use Types Packs/Day Years Used Date Smoking Tobacco: Never Assessed Comments Unknown Sex and Gender Information Value Date Recorded Sex Assigned at Not on file Legal Sex Female 3:40 AM INSTRUCTOR LOOPING Gender Identity Not on file Sexual Orientation Not on file documented as of this encounter Plan of Treatment Not on file documented as of this encounter Visit Diagnoses Not on filedocumented in this encounter Additional Health Concerns Infection Onset Date Last Indicated Resolved Time R/O COVID-19 01/31/2020 01/31/2020 02/02/2020 10:3 2 AM CDT documented as of this encounter Care Teams Taxation Consultant Relationship Specialty Start Date End Date Areli Gurrola MD [address] [place] [address] PCP - General Specialist 08/12/19 documented as of this encounter
--- OUTSIDE RECORDS SUMMARY | 2024-10-04 21:18 | XMS_ITS | Encounter Summary ---
Author Organization [facility] Address [address] [place] [address] Care Team Providers Care Beam Machine Operator Name Role Phone Areli Gurrola MD Primary Care Provider Encounter Details Date Type Department Care Team (Latest Contact Info) Description 09/08/1999 Outpatient Historical [facility] [address] [place] [address] Trell York MD [address] [place] [phone] Lumbago (Primary Dx); Obesity, unspecified Social History Tobacco Use Types Packs/Day Years Used Date Smoking Tobacco: Never Assessed Comments Unknown Sex and Gender Information Value Date Recorded Sex Assigned at Not on file Legal Sex Female 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 Gender Identity Not on file Sexual Orientation Not on file documented as of this encounter Plan of Treatment Not on file documented as of this encounter Visit Diagnoses Diagnosis Lumbago- Primary Obesity, unspecified documented in this encounter Additional Health Concerns Infection Onset Date Last Indicated Resolved Time R/O COVID-19 01/31/2020 01/31/2020 02/02/2020 10:3 2 AM CDT documented as of this encounter Care Teams Beam Machine Operator Relationship Specialty Start Date End Date Areli Gurrola MD [address] [facility] [place] [place] [address] PCP - General Specialist 08/12/19 documented as of this encounter
--- OUTSIDE RECORDS SUMMARY | 2024-10-04 21:18 | XMS_ITS | Encounter Summary ---
Author Organization [facility] Address [address] [place] [address] Care Team Providers Care Taping Machine Operator Name Role Phone Areli Gurrola MD Primary Care Provider Encounter Details Date Type Department Care Team (Latest Contact Info) Description 03/27/[address] [facility] [address] [place] [address] Trell York MD [address] [place] [phone] CERVICALGIA (Primary Dx); NEUROTIC DEPRESSION; LUMBAGO Social History Tobacco Use Types Packs/Day Years Used Date Smoking Tobacco: Never Assessed Comments Unknown Sex and Gender Information Value Date Recorded Sex Assigned at Not on file Legal Sex Female 3:40 AM MOBILE MANAGER Gender Identity Not on file Sexual Orientation Not on file documented as of this encounter Plan of Treatment Not on file documented as of this encounter Visit Diagnoses Diagnosis Cervicalgia- Primary Dysthymic disorder Lumbago documented in this encounter Additional Health Concerns Infection Onset Date Last Indicated Resolved Time R/O COVID-19 01/31/2020 01/31/2020 02/02/2020 10:3 2 AM CDT documented as of this encounter Care Teams Taping Machine Operator Relationship Specialty Start Date End Date Areli Gurrola MD [address] [place] [address] PCP - General Specialist 08/12/19 documented as of this encounter
--- OUTSIDE RECORDS SUMMARY | 2024-10-04 21:18 | XMS_ITS | Encounter Summary ---
Author Organization [facility] Address [address] [place] [address] Care Team Providers Care Clinical Services Assistant Name Role Phone Areli Gurrola MD Primary Care Provider Encounter Details Date Type Department Care Team (Latest Contact Info) Description 05/03/1999 Outpatient Historical [facility] [place] [address] Alumno, Gibran Lynn MD [address] [place] [address] Cramp of limb (Primary Dx); Contracture of hand joint Social History Tobacco Use Types Packs/Day Years Used Date Smoking Tobacco: Never Assessed Comments Unknown Sex and Gender Information Value Date Recorded Sex Assigned at Not on file Legal Sex Female 3:40 AM DOCUMENT IMPROVEMENT SPECIALIST Gender Identity Not on file Sexual Orientation Not on file documented as of this encounter Plan of Treatment Not on file documented as of this encounter Visit Diagnoses Diagnosis Cramp of limb- Primary Contracture of hand joint documented in this encounter Additional Health Concerns Infection Onset Date Last Indicated Resolved Time R/O COVID-19 01/31/2020 01/31/2020 02/02/2020 10:3 2 AM CDT documented as of this encounter Care Teams Clinical Services Assistant Relationship Specialty Start Date End Date Areli Gurrola MD [address] [place] [address] PCP - General Specialist 08/12/19 documented as of this encounter
--- OUTSIDE RECORDS SUMMARY | 2024-10-04 21:18 | XMS_ITS | Encounter Summary ---
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
--- OUTSIDE RECORDS SUMMARY | 2024-10-04 21:18 | XMS_ITS | Encounter Summary ---
Author Organization [facility] Address [address] [facility] Attn: [place] [address] Care Team Providers Care Butter Wrapper Name Role Phone Areli Gurrola MD Primary Care Provider Encounter Details Date Type Department Care Team (Late st Contact Info) Description 02/21/2000 Outpatient Historical Michael Larios MD NO ADDRESS ON FILE Social History Tobacco Use Types Packs/Day Years Used Date Smoking Tobacco: Never Assessed Comments Unknown Sex and Gender Information Value Date Recorded Sex Assigned at Not on file Legal Sex Female 3:40 AM APPLICATIONS SPECIALIST Gender Identity Not on file Sexual Orientation Not on file documented as of this encounter Plan of Treatment Not on file documented as of this encounter Visit Diagnoses Not on filedocumented in this encounter Additional Health Concerns Infection Onset Date Last Indicated Resolved Time R/O COVID-19 01/31/2020 01/31/2020 02/02/2020 10:3 2 AM CDT documented as of this encounter Care Teams Butter Wrapper Relationship Specialty Start Date End Date Areli Gurrola MD [address] [facility] [place] [address] PCP - General Specialist 08/12/19 documented as of this encounter
--- OUTSIDE RECORDS SUMMARY | 2024-10-04 21:18 | XMS_ITS | Encounter Summary ---
Author Organization [facility] Address [address] [place] [address] Care Team Providers Care Drapery Installer Name Role Phone Areli Gurrola MD Primary Care Provider Encounter Details Date Type Department Care Team (Late st Contact Info) Description 03/25/1999 Outpatient Historical [facility] Social History Tobacco Use Types Packs/Day Years Used Date Smoking Tobacco: Never Assessed Comments Unknown Sex and Gender Information Value Date Recorded Sex Assigned at Not on file Legal Sex Female 3:40 AM PENSION AGENT Gender Identity Not on file Sexual Orientation Not on file documented as of this encounter Plan of Treatment Not on file documented as of this encounter Visit Diagnoses Not on filedocumented in this encounter Additional Health Concerns Infection Onset Date Last Indicated Resolved Time R/O COVID-19 01/31/2020 01/31/2020 02/02/2020 10:3 2 AM CDT documented as of this encounter Care Teams Drapery Installer Relationship Specialty Start Date End Date Areli Gurrola MD [address] [place] [address] PCP - General Specialist 08/12/19 documented as of this encounter
--- OUTSIDE RECORDS SUMMARY | 2024-10-04 21:18 | XMS_ITS | Encounter Summary ---
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
--- OUTSIDE RECORDS SUMMARY | 2024-10-04 21:18 | XMS_ITS | Encounter Summary ---
Author Organization [facility] Address [address] [place] [address] Care Team Providers Care Spearer Name Role Phone Areli Gurrola MD Primary Care Provider Encounter Details Date Type Department Care Team (Latest Contact Info) Description 01/30/2000 Outpatient Historical [facility] [address] [place] [address] Trell York MD [address] [place] [phone] Lumbago (Primary Dx) Social History Tobacco Use Types Packs/Day Years Used Date Smoking Tobacco: Never Assessed Comments Unknown Sex and Gender Information Value Date Recorded Sex Assigned at Not on file Legal Sex Female 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 Gender Identity Not on file Sexual Orientation Not on file documented as of this encounter Plan of Treatment Not on file documented as of this encounter Visit Diagnoses Diagnosis Lumbago- Primary documented in this encounter Additional Health Concerns Infection Onset Date Last Indicated Resolved Time R/O COVID-19 01/31/2020 01/31/2020 02/02/2020 10:3 2 AM CDT documented as of this encounter Care Teams Spearer Relationship Specialty Start Date End Date Areli Gurrola MD [address] [facility] [place] [address] PCP - General Specialist 08/12/19 documented as of this encounter
--- OUTSIDE RECORDS SUMMARY | 2024-10-04 21:18 | XMS_ITS | Encounter Summary ---
Author Organization [facility] Address [address] [place] [address] Care Team Providers Care Environmental Health Safety Manager Name Role Phone Areli Gurrola MD Primary Care Provider Encounter Details Date Type Department Care Team (Late st Contact Info) Description 03/25/1999 Outpatient Historical HIS [facility] Social History Tobacco Use Types Packs/Day Years Used Date Smoking Tobacco: Never Assessed Comments Unknown Sex and Gender Information Value Date Recorded Sex Assigned at Not on file Legal Sex Female 3:40 AM MATERIALS SPECIALIST Gender Identity Not on file Sexual Orientation Not on file documented as of this encounter Plan of Treatment Not on file documented as of this encounter Visit Diagnoses Not on filedocumented in this encounter Additional Health Concerns Infection Onset Date Last Indicated Resolved Time R/O COVID-19 01/31/2020 01/31/2020 02/02/2020 10:3 2 AM CDT documented as of this encounter Care Teams Environmental Health Safety Manager Relationship Specialty Start Date End Date Areli Gurrola MD [address] [place] [address] PCP - General Specialist 08/12/19 documented as of this encounter
--- OUTSIDE RECORDS SUMMARY | 2024-10-04 21:18 | XMS_ITS | Encounter Summary ---
Author Organization [facility] Address [address] [place] [address] Care Team Providers Care Metal Control Coordinator Name Role Phone Areli Gurrola MD Primary Care Provider Encounter Details Date Type Department Care Team (Latest Contact Info) Description 03/23/1999 Outpatient [facility] [place] [place] [address] Alumno, Gibran Lynn MD [address] [place] [address] Unspecified viral infection, in conditions classified elsewhere and of unspecified site (Primary Dx); Sprain and strain of other specified sites of shoulder and upper arm; Tobacco use disorder Social History Tobacco Use Types Packs/Day Years Used Date Smoking Tobacco: Never Assessed Comments Unknown Sex and Gender Information Value Date Recorded Sex Assigned at Not on file Legal Sex Female 3:40 AM TAX ADJUSTER Gender Identity Not on file Sexual Orientation Not on file documented as of this encounter Plan of Treatment Not on file documented as of this encounter Visit Diagnoses Diagnosis Unspecified viral infection, in conditions classified elsewhere and of unspecified site- Primary Sprain and strain of other specified sites of shoulder and upper arm Tobacco use disorder documented in this encounter Additional Health Concerns Infection Onset Date Last Indicated Resolved Time R/O COVID-19 01/31/2020 01/31/2020 02/02/2020 10:3 2 AM CDT documented as of this encounter Care Teams Metal Control Coordinator Relationship Specialty Start Date End Date Areli Gurrola MD [address] [place] [address] PCP - General Specialist 08/12/19 documented as of this encounter
--- OUTSIDE RECORDS SUMMARY | 2024-10-04 21:18 | XMS_ITS | Encounter Summary ---
Author Organization [facility] Address [address] [place] [address] Care Team Providers Care Ear Nose And Throat Specialist Name Role Phone Areli Gurrola MD Primary Care Provider Encounter Details Date Type Department Care Team (Latest Contact Info) Description 02/21/2000 Outpatient Historical [facility] [address] [place] [address] Trell York MD [address] [place] [phone] Stricture of cervix (Primary Dx); Lumbago Social History Tobacco Use Types Packs/Day Years Used Date Smoking Tobacco: Never Assessed Comments Unknown Sex and Gender Information Value Date Recorded Sex Assigned at Not on file Legal 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 Gender Identity Not on file Sexual Orientation Not on file documented as of this encounter Plan of Treatment Not on file documented as of this encounter Visit Diagnoses Diagnosis Stricture of cervix- Primary Stricture and stenosis of cervix Lumbago documented in this encounter Additional Health Concerns Infection Onset Date Last Indicated Resolved Time R/O COVID-19 01/31/2020 01/31/2020 02/02/2020 10:3 2 AM CDT documented as of this encounter Care Teams Ear Nose And Throat Specialist Relationship Specialty Start Date End Date Areli Gurrola MD [address] [place] [address] PCP - General Specialist 08/12/19 documented as of this encounter
--- OUTSIDE RECORDS SUMMARY | 2024-10-04 21:18 | XMS_ITS | Encounter Summary ---
Author Organization [facility] Address [address] [facility] [facility] Attn: [place] [address] Care Team Providers Care Rn Clinical Coordinator Name Role Phone Areli Gurrola MD Primary Care Provider Encounter Details Date Type Department Care Team (Late st Contact Info) Description 03/06/2000 Outpatient Historical Michael Larios MD NO ADDRESS ON FILE Social History Tobacco Use Types Packs/Day Years Used Date Smoking Tobacco: Never Assessed Comments Unknown Sex and Gender Information Value Date Recorded Sex Assigned at Not on file Legal Sex Female 3:40 AM APPEALS NURSE Gender Identity Not on file Sexual Orientation Not on file documented as of this encounter Plan of Treatment Not on file documented as of this encounter Visit Diagnoses Not on filedocumented in this encounter Additional Health Concerns Infection Onset Date Last Indicated Resolved Time R/O COVID-19 01/31/2020 01/31/2020 02/02/2020 10:3 2 AM CDT documented as of this encounter Care Teams Rn Clinical Coordinator Relationship Specialty Start Date End Date Areli Gurrola MD [address] [facility] [place] [address] PCP - General Specialist 08/12/19 documented as of this encounter
--- OUTSIDE RECORDS SUMMARY | 2024-10-04 21:18 | XMS_ITS | Encounter Summary ---
Author Organization [facility] Address [address] [facility] Attn: [place] [address] Care Team Providers Care Dispatcher Chief Oil Name Role Phone Areli Gurrola MD Primary Care Provider Encounter Details Date Type Department Care Team (Late st Contact Info) Description 08/24/1999 Outpatient Historical Joseph Ramos MD [address] [place] [address] Social History Tobacco Use Types Packs/Day Years Used Date Smoking Tobacco: Never Assessed Comments Unknown Sex and Gender Information Value Date Recorded Sex Assigned at Not on file Legal Sex Female 3:40 AM CENTER DIRECTOR Gender Identity Not on file Sexual Orientation Not on file documented as of this encounter Plan of Treatment Not on file documented as of this encounter Visit Diagnoses Not on filedocumented in this encounter Additional Health Concerns Infection Onset Date Last Indicated Resolved Time R/O COVID-19 01/31/2020 01/31/2020 02/02/2020 10:3 2 AM CDT documented as of this encounter Care Teams Dispatcher Chief Oil Relationship Specialty Start Date End Date Areli Gurrola MD [address] [facility] [place] [address] PCP - General Specialist 08/12/19 documented as of this encounter
--- OUTSIDE RECORDS SUMMARY | 2024-10-04 21:18 | XMS_ITS | Encounter Summary ---
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
--- OUTSIDE RECORDS SUMMARY | 2024-10-04 21:18 | XMS_ITS | Clinical Summary ---
Author Organization [facility] Address [address] [place] [address] Care Team Providers Care Archeologist Name Role Phone Areli Gurrola MD Primary Care Provider Allergies Active Allergy Reactions Criticality Noted Date Comments Acetaminophen Other (See Comments) 03/31/2019 Due to liver damage Aspirin Other (See Comments) 09/29/2015 GI bleed Cephalexin Other (See Comments) 09/29/2015 GI bleed Ibuprofen Other (See Comments) 09/29/2015 GI bleed Metoclopramide Other (See Comments) 03/15/2020 Tendons seize up. Sulfa (Sulfonamide Antibiotics) Rash Low 05/30/2018 Sumatriptan Headache Low 09/29/2015 Medications nitroglycerin (NITROSTAT) 0.4 mg Tablet, Sublingual Place 0.4 mg under tongue every 5 minutes as needed for Chest Pain. Active insulin aspart prot/insuln asp (NOVOLOG MIX 70-30 SUBCUT) Inject 15 Units by subcutaneous injection 4 times daily. Active insulin degludec (TRESIBA FLEXTOUCH U-100 SUBCUT) Inject 60 Units by subcutaneous injection daily. Active albuterol HFA 90 mcg inhaler Until doing well use 4 puffs every 4 hours while awake then as needed. 8.5 Gram 1 Active Active Problems Problem Noted Date Diagnosed Date Cigarette dependence 10/20/2015 Immunizations Immunization Administration Dates Next Due (ADACEL/BOOSTRIX)(10 YR UP) TDAP VACCINE, 0.5ML, IM 03/15/2020 Family History Medical History Relation Name Comments Colon Cancer Maternal Grandmother Relation Name Status Comments Maternal Grandmother Social History Tobacco Use Types Packs/Day Years Used Date Smoking Tobacco: Every Day Cigarettes 0.3 27 Smokeless Tobacco: Never Tobacco Cessation:Ready to Q uit: No; Counseling Given: No Comments:4 cigarettes daily Alcohol Use Standard Drinks/Week Comments No 0 (1 standard drink = 0.6 oz pur e alcohol) Comments No Sex and Gender Information Value Date Recorded Sex Assigned at Not on file Legal Sex Female 3:40 AM LEGAL RECOVERY SPECIALIST Gender Identity Not on file Sexual Orientation Not on file Last Filed Vital Signs Vital Sign Reading Time Taken Comments Blood Pressure 106/64 09/25/2020 1:10 AM CDT Pulse 63 09/25/2020 12:43 AM CDT Temperature 36.9 C (98.4 F) 09/25/2020 1:10 AM CDT Respiratory Rate 18 09/25/2020 1:10 AM CDT Oxygen Saturation 98% 09/25/2020 1:10 AM CDT Inhaled Oxygen Concentration - - Weight 76.2 kg (168 lb) 09/24/2020 8:35 PM CDT Height 149.9 cm (4' 11 ) 09/24/2020 8:35 PM CDT Body Mass Index 33.93 09/24/2020 8:35 PM CDT Plan of Treatment Health Maintenance Due Date Last Done Comments DIABETES ANNUAL FOOT EXAM 1985 DIABETES ANNUAL RETINAL EXAM 1985 DIABETES MICROALBUMIN ANNUAL SCREEN 1985 LDL CHOLESTEROL ANNUAL 1985 HEPATITIS B VACCINES (1 of 3 - 19+ 3-dose series) 1986 HPV/Cotest (21-29) 1988 CERVICAL CANCER SCREENING 1997 HPV/Cotest (30-65) 1997 PAP SMEAR 1997 BREAST CANCER SCREENING 2007 FIT-DNA Q 3 years 2012 FIT/FOBT Q 1 year 2012 Flex Sig/CT Colonography Q 5 years 2012 ZOSTER VACCINE (1 of 2) 2017 DIABETES HBA1C Q 6 MONTHS 02/19/2020 08/19/2019 INFLUENZA VACCINE (#1) 2023 COLORECTAL SCREENING 02/16/2026 02/17/2016 Colorectal Cancer Screening 02/16/2026 DTAP/TDAP/TD VACCINES (2 - T d or Tdap) 03/15/2030 03/15/2020, 11/07/1997, 03/03/1997 Insurance [facility] DUAL COMPLETE MCR PPO D-SNP MEDICAID [place] Advance Directives For more information, please contact: [phone] * Full Code (Latest Code Status on File) Date Activated Date Inactivated Comments 02/17/2016 12:44 PM 02/17/2016 4:46 PM Care Teams Archeologist Relationship Specialty Start Date End Date Areli Gurrola MD [address] [place] [phone] PCP - General Specialist 08/12/19
--- OUTSIDE RECORDS SUMMARY | 2024-10-04 21:18 | XMS_ITS | Encounter Summary ---
Author Organization [facility] Address [address] [place] [address] Care Team Providers Care Veterinary Laboratory Diagnostician Name Role Phone Areli Gurrola MD Primary Care Provider Encounter Details Date Type Department Care Team (Latest Contact Info) Description 04/11/2006 Outpatient Historical 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 Gender Identity Not on file Sexual Orientation Not on file documented as of this encounter Plan of Treatment Not on file documented as of this encounter Visit Diagnoses Diagnosis Unspecified essential hypertension- Primary Dysthymic disorder Insomnia, unspecified Mononeuritis of unspecified site documented in this encounter Additional Health Concerns Infection Onset Date Last Indicated Resolved Time R/O COVID-19 01/31/2020 01/31/2020 02/02/2020 10:3 2 AM CDT documented as of this encounter Care Teams Veterinary Laboratory Diagnostician Relationship Specialty Start Date End Date Areli Gurrola MD [address] [facility] [place] [address] PCP - General Specialist 08/12/19 documented as of this encounter
--- OUTSIDE RECORDS SUMMARY | 2024-10-04 21:18 | XMS_ITS | Encounter Summary ---
Author Organization [facility] Address [address] [place] [address] Care Team Providers Care Drop Machine Operator Name Role Phone Areli Gurrola MD Primary Care Provider Encounter Details Date Type Department Care Team (Late st Contact Info) Description 03/18/1999 Outpatient Historical [facility] Social History Tobacco Use Types Packs/Day Years Used Date Smoking Tobacco: Never Assessed Comments Unknown Sex and Gender Information Value Date Recorded Sex Assigned at Not on file Legal Sex Female 3:40 AM HHAS Gender Identity Not on file Sexual Orientation Not on file documented as of this encounter Plan of Treatment Not on file documented as of this encounter Visit Diagnoses Not on filedocumented in this encounter Additional Health Concerns Infection Onset Date Last Indicated Resolved Time R/O COVID-19 01/31/2020 01/31/2020 02/02/2020 10:3 2 AM CDT documented as of this encounter Care Teams Drop Machine Operator Relationship Specialty Start Date End Date Areli Gurrola MD [address] [place] [address] PCP - General Specialist 08/12/19 documented as of this encounter
--- OUTSIDE RECORDS SUMMARY | 2024-10-04 21:18 | XMS_ITS | Encounter Summary ---
Author Organization [facility] Address [address] [place] [address] Care Team Providers Care Wheel Lacer And Truer Name Role Phone Areli Gurrola MD Primary Care Provider Encounter Details Date Type Department Care Team (Late st Contact Info) Description 05/03/1999 Outpatient Historical [facility] [place], Gibran Lynn MD [address] [facility] [address] [place] [address] Cramp of limb (Primary Dx) Social History Tobacco Use Types Packs/Day Years Used Date Smoking Tobacco: Never Assessed Comments Unknown Sex and Gender Information Value Date Recorded Sex Assigned at Not on file Legal Sex Female 3:40 AM TUMOR REGISTRAR Gender Identity Not on file Sexual Orientation Not on file documented as of this encounter Plan of Treatment Not on file documented as of this encounter Visit Diagnoses Diagnosis Cramp of limb- Primary documented in this encounter Additional Health Concerns Infection Onset Date Last Indicated Resolved Time R/O COVID-19 01/31/2020 01/31/2020 02/02/2020 10:3 2 AM CDT documented as of this encounter Care Teams Wheel Lacer And Truer Relationship Specialty Start Date End Date Areli Gurrola MD [address] [place] [address] PCP - General Specialist 08/12/19 documented as of this encounter
--- OUTSIDE RECORDS SUMMARY | 2024-10-04 21:18 | XMS_ITS | Encounter Summary ---
Author Organization [facility] Address [address] [place] [address] Care Team Providers Care Propagator Laborer Name Role Phone Areli Gurrola MD Primary Care Provider Encounter Details Date Type Department Care Team (Latest Contact Info) Description 04/25/2001 Outpatient Historical [facility] [address] [place] [address] Trell York MD [address] [place] [phone] ESOPHAGITIS, UNSPECIFIED (Primary Dx); LUMBAGO; SEBACEOUS CYST Social History Tobacco Use Types Packs/Day Years Used Date Smoking Tobacco: Never Assessed Comments Unknown Sex and Gender Information Value Date Recorded Sex Assigned at Not on file Legal Sex Female 3:40 AM VULCANIZING MACHINE OPERATOR Gender Identity Not on file Sexual Orientation Not on file documented as of this encounter Plan of Treatment Not on file documented as of this encounter Visit Diagnoses Diagnosis Esophagitis, unspecified- Primary Lumbago Sebaceous cyst documented in this encounter Additional Health Concerns Infection Onset Date Last Indicated Resolved Time R/O COVID-19 01/31/2020 01/31/2020 02/02/2020 10:3 2 AM CDT documented as of this encounter Care Teams Propagator Laborer Relationship Specialty Start Date End Date Areli Gurrola MD [address] [place] [address] PCP - General Specialist 08/12/19 documented as of this encounter
--- OUTSIDE RECORDS SUMMARY | 2024-10-04 21:18 | XMS_ITS | Encounter Summary ---
Author Organization [facility] Address [address] [place] [address] Care Team Providers Care Environmental Compliance Inspector Name Role Phone Areli Gurrola MD Primary Care Provider Encounter Details Date Type Department Care Team (Latest Contact Info) Description 07/27/2000 Outpatient Historical [facility] [address] [place] [address] Trell York MD [address] [place] [phone] Unspecified disorder of female genital organs (Primary Dx); Cervicalgia Social History Tobacco Use Types Packs/Day Years Used Date Smoking Tobacco: Never Assessed Comments Unknown Sex and Gender Information Value Date Recorded Sex Assigned at Not on file Legal Sex Female 3:40 AM CONSUMER EDUCATION SPECIALIST Gender Identity Not on file Sexual Orientation Not on file documented as of this encounter Plan of Treatment Not on file documented as of this encounter Visit Diagnoses Diagnosis Unspecified disorder of female genital organs- Primary Cervicalgia documented in this encounter Additional Health Concerns Infection Onset Date Last Indicated Resolved Time R/O COVID-19 01/31/2020 01/31/2020 02/02/2020 10:3 2 AM CDT documented as of this encounter Care Teams Environmental Compliance Inspector Relationship Specialty Start Date End Date Areli Gurrola MD [address] [place] [address] PCP - General Specialist 08/12/19 documented as of this encounter
--- OUTSIDE RECORDS SUMMARY | 2024-10-04 21:18 | XMS_ITS | Encounter Summary ---
Author Organization [facility] Address [address] [place] [address] Care Team Providers Care Staff Assistant Name Role Phone Areli Gurrola MD Primary Care Provider Encounter Details Date Type Department Care Team (Late st Contact Info) Description 03/28/1999 Outpatient Historical [facility] Social History Tobacco Use Types Packs/Day Years Used Date Smoking Tobacco: Never Assessed Comments Unknown Sex and Gender Information Value Date Recorded Sex Assigned at Not on file Legal Sex Female 3:40 AM EPIC INTERFACE ANALYST Gender Identity Not on file Sexual Orientation Not on file documented as of this encounter Plan of Treatment Not on file documented as of this encounter Visit Diagnoses Not on filedocumented in this encounter Additional Health Concerns Infection Onset Date Last Indicated Resolved Time R/O COVID-19 01/31/2020 01/31/2020 02/02/2020 10:3 2 AM CDT documented as of this encounter Care Teams Staff Assistant Relationship Specialty Start Date End Date Areli Gurrola MD [address] [place] [address] PCP - General Specialist 08/12/19 documented as of this encounter
--- OUTSIDE RECORDS SUMMARY | 2024-10-04 21:18 | XMS_ITS | Encounter Summary ---
Author Organization [facility] Address [address] [place]: [place] [address] Care Team Providers Care Leaf Stripper Name Role Phone Areli Gurrola MD Primary Care Provider Encounter Details Date Type Department Care Team (Late st Contact Info) Description 06/06/2001 Outpatient Historical [facility], Trell Pascual MD [address] [place] [phone] Social History Tobacco Use Types Packs/Day Years Used Date Smoking Tobacco: Never Assessed Comments Unknown Sex and Gender Information Value Date Recorded Sex Assigned at Not on file Legal Sex Female 3:40 AM DIRECTOR FOUNDATION Gender Identity Not on file Sexual Orientation Not on file documented as of this encounter Plan of Treatment Not on file documented as of this encounter Visit Diagnoses Not on filedocumented in this encounter Additional Health Concerns Infection Onset Date Last Indicated Resolved Time R/O COVID-19 01/31/2020 01/31/2020 02/02/2020 10:3 2 AM CDT documented as of this encounter Care Teams Leaf Stripper Relationship Specialty Start Date End Date Areli Gurrola MD [address] [place] [address] PCP - General Specialist 08/12/19 documented as of this encounter
--- OUTSIDE RECORDS SUMMARY | 2024-10-04 21:18 | XMS_ITS | Encounter Summary ---
Author Organization [facility] Address [address] [place] [address] Care Team Providers Care Import Export Coordinator Name Role Phone Areli Gurrola MD Primary Care Provider Encounter Details Date Type Department Care Team (Latest Contact Info) Description 11/28/1999 Outpatient Historical [facility] [address] [place] [address] Trell York MD [address] [place] [phone] Lumbago (Primary Dx) Social History Tobacco Use Types Packs/Day Years Used Date Smoking Tobacco: Never Assessed Comments Unknown Sex and Gender Information Value Date Recorded Sex Assigned at Not on file Legal Sex Female 3:40 AM PONY WORKER Gender Identity Not on file Sexual Orientation Not on file documented as of this encounter Plan of Treatment Not on file documented as of this encounter Visit Diagnoses Diagnosis Lumbago- Primary documented in this encounter Additional Health Concerns Infection Onset Date Last Indicated Resolved Time R/O COVID-19 01/31/2020 01/31/2020 02/02/2020 10:3 2 AM CDT documented as of this encounter Care Teams Import Export Coordinator Relationship Specialty Start Date End Date Areli Gurrola MD [address] [facility] [place] [address] PCP - General Specialist 08/12/19 documented as of this encounter
--- OUTSIDE RECORDS SUMMARY | 2024-10-04 21:18 | XMS_ITS | Encounter Summary ---
Author Organization [facility] Address [address] [place] [address] Care Team Providers Care Medical Office Receptionist Name Role Phone Areli Gurrola MD Primary Care Provider Encounter Details Date Type Department Care Team (Latest Contact Info) Description 07/20/1999 Outpatient Historical [facility] Joseph Ramos MD [address] [place] [address] Pain in joint, hand (Primary Dx) Social History Tobacco Use Types Packs/Day Years Used Date Smoking Tobacco: Never Assessed Comments Unknown Sex and Gender Information Value Date Recorded Sex Assigned at Not on file Legal Sex Female 3:40 AM HOUSEKEEPER AND LAUNDRY ASSISTANT Gender Identity Not on file Sexual [...] documented as of this encounter Care Teams Medical Office Receptionist Relationship Specialty Start Date End Date Areli Gurrola MD [address] [facility] [place] [address] PCP - General Specialist 08/12/19 documented as of this encounter
--- OUTSIDE RECORDS SUMMARY | 2024-10-04 21:18 | XMS_ITS | Encounter Summary ---
Author Organization [facility] Address [address] [place] [address] Care Team Providers Care Manager Nicu Name Role Phone Areli Gurrola MD Primary Care Provider Encounter Details Date Type Department Care Team (Late st Contact Info) Description 06/11/2001 Outpatient Historical [facility] [address] [place] [address] Social History Tobacco Use Types Packs/Day Years Used Date Smoking Tobacco: Never Assessed Comments Unknown Sex and Gender Information Value Date Recorded Sex Assigned at Not on file Legal Sex Female 3:40 AM ADVERTISING COORDINATOR Gender Identity Not on file Sexual Orientation Not on file documented as of this encounter Plan of Treatment Not on file documented as of this encounter Visit Diagnoses Not on filedocumented in this encounter Additional Health Concerns Infection Onset Date Last Indicated Resolved Time R/O COVID-19 01/31/2020 01/31/2020 02/02/2020 10:3 2 AM CDT documented as of this encounter Care Teams Manager Nicu Relationship Specialty Start Date End Date Areli Gurrola MD [address] [place] [address] PCP - General Specialist 08/12/19 documented as of this encounter
--- OUTSIDE RECORDS SUMMARY | 2024-10-04 21:18 | XMS_ITS | Encounter Summary ---
Author Organization [facility] Address [address] [place] [address] Care Team Providers Care Marble Worker Name Role Phone Areli Gurrola MD Primary Care Provider Encounter Details Date Type Department Care Team (Latest Contact Info) Description 08/18/1999 Outpatient Historical [facility] Joseph Ramos MD [address] [place] [address] Pain in joint, hand (Primary Dx) Social History Tobacco Use Types Packs/Day Years Used Date Smoking Tobacco: Never Assessed Comments Unknown Sex and Gender Information Value Date Recorded Sex Assigned at Not on file Legal Sex Female 3:40 AM MITER CUTTER Gender Identity Not on file Sexual Orientation [...] documented as of this encounter Care Teams Marble Worker Relationship Specialty Start Date End Date Areli Gurrola MD [address] [facility] [place] [address] PCP - General Specialist 08/12/19 documented as of this encounter
--- OUTSIDE RECORDS SUMMARY | 2024-10-04 21:18 | XMS_ITS | Encounter Summary ---
Author Organization [facility] Address [address] [place] [address] Care Team Providers Care Conditioner Tumbler Name Role Phone Areli Gurrola MD Primary Care Provider Encounter Details Date Type Department Care Team (Latest Contact Info) Description 11/13/2000 Outpatient Historical [facility] [address] [place] [address] Trell York MD [address] [place] [phone] Insomnia, unspecified (Primary Dx); Lumbago Social History Tobacco Use Types Packs/Day Years Used Date Smoking Tobacco: Never Assessed Comments Unknown Sex and Gender Information Value Date Recorded Sex Assigned at Not on file Legal Sex Female 3:40 AM JEWEL 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 Gender Identity Not on file Sexual Orientation Not on file documented as of this encounter Plan of Treatment Not on file documented as of this encounter Visit Diagnoses Diagnosis Insomnia, unspecified- Primary Lumbago documented in this encounter Additional Health Concerns Infection Onset Date Last Indicated Resolved Time R/O COVID-19 01/31/2020 01/31/2020 02/02/2020 10:3 2 AM CDT documented as of this encounter Care Teams Conditioner Tumbler Relationship Specialty Start Date End Date Areli Gurrola MD [address] [facility] [place] [address] PCP - General Specialist 08/12/19 documented as of this encounter
--- OUTSIDE RECORDS SUMMARY | 2024-10-04 21:18 | XMS_ITS | Encounter Summary ---
Author Organization [facility] Address [address] [place] [address] Care Team Providers Care Production Cell Leader Name Role Phone Areli Gurrola MD Primary Care Provider Encounter Details Date Type Department Care Team (Late st Contact Info) Description 03/30/1999 Outpatient Historical [facility] Social History Tobacco Use Types Packs/Day Years Used Date Smoking Tobacco: Never Assessed Comments Unknown Sex and Gender Information Value Date Recorded Sex Assigned at Not on file Legal Sex Female 3:40 AM GLASS CRUSHER Gender Identity Not on file Sexual Orientation Not on file documented as of this encounter Plan of Treatment Not on file documented as of this encounter Visit Diagnoses Not on filedocumented in this encounter Additional Health Concerns Infection Onset Date Last Indicated Resolved Time R/O COVID-19 01/31/2020 01/31/2020 02/02/2020 10:3 2 AM CDT documented as of this encounter Care Teams Production Cell Leader Relationship Specialty Start Date End Date Areli Gurrola MD [address] [place] [address] PCP - General Specialist 08/12/19 documented as of this encounter
--- OUTSIDE RECORDS SUMMARY | 2024-10-04 21:19 | XMS_ITS | Encounter Summary ---
Author Organization [facility] Address [address] [place] [address] Care Team Providers Care Modeling Director Name Role Phone Areli Gurrola MD Primary Care Provider Encounter Details Date Type Department Care Team (Latest Contact Info) Description 06/26/2003 Outpatient Historical [facility] [address] [place] [address] Jim [place]os [place] [address] [address] [place] [address] PRECORDIAL PAIN (Primary Dx) Social History Tobacco Use Types Packs/Day Years Used Date Smoking Tobacco: Never Assessed Comments Unknown Sex and Gender Information Value Date Recorded Sex Assigned at Not on file Legal Sex Female 3:40 AM DRAWER FITTER Gender Identity Not on file Sexual Orientation Not on file documented as of this encounter Plan of Treatment Not on file documented as of this encounter Visit Diagnoses Diagnosis Precordial pain- Primary documented in this encounter Additional Health Concerns Infection Onset Date Last Indicated Resolved Time R/O COVID-19 01/31/2020 01/31/2020 02/02/2020 10:3 2 AM CDT documented as of this encounter Care Teams Modeling Director Relationship Specialty Start Date End Date Areli Gurrola MD [address] [facility] [facility] [place] [address] PCP - General Specialist 08/12/19 documented as of this encounter
--- OUTSIDE RECORDS SUMMARY | 2024-10-04 21:19 | XMS_ITS | Patient Health Record ---
Author Organization [facility] Address [address] [place] [address] Care Team Providers Care Sql Report Writer Name Role Phone Joseph Lewis MD Primary Care Provider Unavaila Zane Grajeda Unavailable [phone] ELROY BOOTHE Unavailable Unavailable Migration, Provider Unavailable Unavailable Reason For Referral No Information Medications Medication SIG (Take, Route, Frequency, Duration) Notes Start Date End Date Status Zolpidem Tartrate 10 MG Take 1 tablet(s) by mouth at bedtime Oral for 30 Zolpidem Tartrate 10mg Tablet Take 1 tablet(s) by mouth at bedtime 05/28/2008 Active Mirapex 0.125 MG Take 1 tablet(s) by mouth tid Oral for 30 Mirapex 0.125mg Tablet Take 1 tablet(s) by mouth tid 05/28/2008 Active Furosemide 20 MG Oral Tablet Furosemide 20 MG Oral Tablet 10/15/2018 Active Atenolol for 0 *please review f or potential update for e-prescription and drug interaction check* Atenolol 05/28/2008 Active Temazepam 15 MG Take 1-2 capsule(s) by mouth at bedtime prn for insomnia Oral for 30 Temazepam 15mg Capsules Take 1-2 capsule(s) by mouth at bedtime prn for insomnia 05/28/2008 Active ropinirole 2 MG Oral Tablet ropinirole 2 MG Oral Tablet 10/15/2018 Active Escitalopram 20 MG Oral Tablet Escitalopram 20 MG Oral Tablet 10/15/2018 Active Metoclopramide HCl 10 MG 1 tab(s) po tid Oral for 30 Metoclopramide HCl 10mg Tablet 1 tab(s) po tid 05/28/2008 Active Mirtazapine 45 MG Take 1 tablet(s) by mouth at bedtime Oral for 30 Mirtazapine 45mg Tablet Take 1 tablet(s) by mouth at bedtime 05/28/2008 Active Furosemide 40 MG 1 tab(s) daily Oral for 30 Furosemide 40mg Tablets 1 tab(s) daily 05/28/2008 Active Metformin hydrochloride 500 MG Oral Tablet Metformin hydrochloride 500 MG Oral Tablet 10/15/2018 Active Carisoprodol 350 MG 1 tab(s) po bid Oral for 30 Carisoprodol 350mg Tablet 1 tab(s) po bid 05/28/2008 Active ALPRAZolam 0.5 MG Take 1 tablet(s) by mouth tid Oral for 30 Alprazolam 0.5mg Tablet Take 1 tablet(s) by mouth tid 05/28/2008 Active oxyCODONE-Acetaminoph en 10-325 MG Take 1 tablet(s) by mouth 4 time a day prn for pain Oral for 30 Oxycodone/Acetaminop hen 10mg/325mg Tablet Take 1 tablet(s) by mouth 4 time a day prn for pain 05/28/2008 Active 24 HR Desvenlafaxine 50 MG Extended Release Tablet [Pristiq] 24 HR Desvenlafaxine 50 MG Extended Release Tablet [Pristiq] 10/15/2018 Active quetiapine 50 MG Oral Tablet quetiapine 50 MG Oral Tablet 10/15/2018 Active Spiriva HandiHaler 18 MCG Inhale contents of 1 capsule(s) by inhaler device by mouth daily thru inhaler. Inhalation for 30 Spiriva HandiHaler 18mcg/1capsule Capsules for Inhalation Inhale contents of 1 capsule(s) by Rotahaler by mouth daily thru inhaler. 05/28/2008 Active Buprenorphine 8 MG / Naloxone 2 MG Sublingual Tablet Buprenorphine 8 MG / Naloxone 2 MG Sublingual Tablet 10/15/2018 Active Fluticasone Furoate Use 2 spray(s) in each nostril daily for 30 *please review for potential update for e-prescription and drug interaction check* Fluticasone Furoate 27.5mcg/1spray Nasal Irwin Use 2 spray(s) in each nostril daily 05/28/2008 Active Immunizations Vaccine Route Administration Date Status Comme nts Influenza (whole), CPT 63100 Inactive Unknown 10/15/2018 Administered Problems Problem Type SNOMED Code ICD Code Onset Dates Problem Status W/U Status Risk Notes Problem Alcohol abuse wi th alcohol-induced mood disorder (F10.14) Active confirmed Problem Severe recurrent major depression without psychotic features (69452390) Major depressive disorder, 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.2) Active confirmed Problem Severe recurrent major depression with psychotic features (70542803) Major depressive disorder, recurrent, 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) Active confirmed Problem Adjustment disorder with mixed disturbance of emotions AND conduct (35880439) Adjustment disorder with mixed disturbance of emotions and conduct (F43.25) Active confirmed Problem Borderline personality disorder (07316692) Borderline personality disorder (F60.3) Active confirmed Problem History of psychiatric disorder (838665700) Personal history of other mental and behavioral disorders (Z86.59) Active confirmed Problem Alcohol abuse (76736296) Alcohol abuse (F10.10) Active confirmed Problem Major depression, single episode (05351506) Depression, major (F32.9) Active confirmed Problem Drug abuse in remission (9420787010533) 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 confirmed Problem Chronic pain (07013707) Chronic pain (G89.29) Active confirmed Problem Polysubstance abuse (698568669) Polysubstance abuse (F19.10) Active confirmed Problem Cannabis abuse (30108988) Cannabis abuse (F12.10) Active confirmed Problem Low back pain (157114020) Low back pain (724.2) 05/28/19 09 Active confirmed [id number] 911- Problem Fibromyalgia (634884958) Fibromyalgia (729.1) 05/28/19 Problem resolved confirmed [id number] 911- Encounters Encounter Location Date Provider Diagnosis Migrated_Facility 0 0 02/02/2024 Provider Migration Migrated_Facility 0 0 02/03/2024 Provider Migration Plan Of Treatment No Information Insurance Providers Payer Name Payer Address Payer Phone Subscriber Number Group Number Insured Name Patient Relationship to Insured Coverage Start Date Coverage End Date [facility] [employer] [address] [address] [place] [address] [id number] Kay Calles Self - patient is the insured [place] Medicaid [address] [place] [address] [id number] Kay aClles Self - patient is the insured Medical (General) History Surgical History Surgery Date(Month/Year) Carpal tunnel surgery Gallbladder surgery Laminectomy Tonsillectomy Hysterectomy Biopsy of Bone Marrow Appendectomy
--- OUTSIDE RECORDS SUMMARY | 2024-10-04 21:19 | XMS_ITS | Encounter Summary ---
Author Organization [facility] Address [address] [place] [address] Care Team Providers Care Spice Miller Name Role Phone Areli Gurrola MD Primary Care Provider Encounter Details Date Type Department Care Team (Latest Contact Info) Description 04/21/2003 Outpatient [facility] [place] [address] [place] [address] Gordon Cabral MD NO ADDRESS ON FILE URIN TRACT INFECTION NOS (Primary Dx) Social History Tobacco Use Types Packs/Day Years Used Date Smoking Tobacco: Never Assessed Comments Unknown Sex and Gender Information Value Date Recorded Sex Assigned at Not on file Legal Sex Female 3:40 AM SPOUT POSITIONER Gender Identity Not on file Sexual Orientation Not on file documented as of this encounter Plan of Treatment Not on file documented as of this encounter Visit Diagnoses Diagnosis Urinary tract infection, site not specified- Primary documented in this encounter Additional Health Concerns Infection Onset Date Last Indicated Resolved Time R/O COVID-19 01/31/2020 01/31/2020 02/02/2020 10:3 2 AM CDT documented as of this encounter Care Teams Spice Miller Relationship Specialty Start Date End Date Areli Gurrola MD [address] [facility] [place] [address] PCP - General Specialist 08/12/19 documented as of this encounter
--- OUTSIDE RECORDS SUMMARY | 2024-10-04 21:19 | XMS_ITS | Encounter Summary ---
Author Organization [facility] Address [address] [place] [address] Care Team Providers Care Director Correctional Agency Name Role Phone Areli Gurrola MD Primary Care Provider Encounter Details Date Type Department Care Team (Latest Contact Info) Description 01/20/2002 Outpatient [facility] [address] [place] [address] Trell York MD [address] [place] [address] NEUROTIC DEPRESSION (Primary Dx); ANXIETY STATE NOS; CERVICALGIA; LUMBAGO Social History Tobacco Use Types Packs/Day Years Used Date Smoking Tobacco: Never Assessed Comments Unknown Sex and Gender Information Value Date Recorded Sex Assigned at Not on file Legal Sex Female 3:40 AM STATE TESTED NURSING ASSISTANT Gender Identity Not on file Sexual Orientation Not on file documented as of this encounter Plan of Treatment Not on file documented as of this encounter Visit Diagnoses Diagnosis Dysthymic disorder- Primary Anxiety state, unspecified Cervicalgia Lumbago documented in this encounter Additional Health Concerns Infection Onset Date Last Indicated Resolved Time R/O COVID-19 01/31/2020 01/31/2020 02/02/2020 10:3 2 AM CDT documented as of this encounter Care Teams Director Correctional Agency Relationship Specialty Start Date End Date Areli Gurrola MD [address] [place] [address] PCP - General Specialist 08/12/19 documented as of this encounter
--- OUTSIDE RECORDS SUMMARY | 2024-10-04 21:19 | XMS_ITS | Encounter Summary ---
Author Organization [facility] Address [address] [place] [address] Care Team Providers Care Environmental Attorney Name Role Phone Areli Gurrola MD Primary Care Provider Encounter Details Date Type Department Care Team (Latest Contact Info) Description 02/14/1999 Outpatient Historical [facility] Imaging Services-[facility] [place] [address] [place] [address] AlumnoGibran MD [address] [place] [address] Lumbago (Primary Dx) Social History Tobacco Use Types Packs/Day Years Used Date Smoking Tobacco: Never Assessed Comments Unknown Sex and Gender Information Value Date Recorded Sex Assigned at Not on file Legal Sex Female 3:40 AM VP INFORMATION TECHNOLOGY Gender Identity Not on file Sexual Orientation Not on file documented as of this encounter Plan of Treatment Not on file documented as of this encounter Visit Diagnoses Diagnosis Lumbago- Primary documented in this encounter Additional Health Concerns Infection Onset Date Last Indicated Resolved Time R/O COVID-19 01/31/2020 01/31/2020 02/02/2020 10:3 2 AM CDT documented as of this encounter Care Teams Environmental Attorney Relationship Specialty Start Date End Date Areli Gurrola MD [address] [place] [address] PCP - General Specialist 08/12/19 documented as of this encounter
--- OUTSIDE RECORDS SUMMARY | 2024-10-04 21:19 | XMS_ITS | Encounter Summary ---
Author Organization [facility] Address [address] [place] [address] Care Team Providers Care Aerial Crop Duster Name Role Phone Areli Gurrola MD Primary Care Provider Encounter Details Date Type Department Care Team (Latest Contact Info) Description 03/06/[address] [facility] [address] [place] [address] Trell York MD [address] [place] [phone] DENTAL DISORDER NOS (Primary Dx); CERVICALGIA; LUMBAGO; DYSTHYMIC DISORDER Social History Tobacco Use Types Packs/Day Years Used Date Smoking Tobacco: Never Assessed Comments Unknown Sex and Gender Information Value Date Recorded Sex Assigned at Not on file Legal Sex Female 3:40 AM CHIEF PRIVACY OFFICER Gender Identity Not on file Sexual Orientation Not on file documented as of this encounter Plan of Treatment Not on file documented as of this encounter Visit Diagnoses Diagnosis Unspecified disorder of the teeth and supporting structures- Primary Cervicalgia Lumbago Dysthymic disorder documented in this encounter Additional Health Concerns Infection Onset Date Last Indicated Resolved Time R/O COVID-19 01/31/2020 01/31/2020 02/02/2020 10:3 2 AM CDT documented as of this encounter Care Teams Aerial Crop Duster Relationship Specialty Start Date End Date Areli Gurrola MD [address] [facility] [place] [address] PCP - General Specialist 08/12/19 documented as of this encounter
--- OUTSIDE RECORDS SUMMARY | 2024-10-04 21:19 | XMS_ITS | Encounter Summary ---
Author Organization [facility] Address [address] [place] [address] Care Team Providers Care Rocket Engine Component Mechanic Name Role Phone Areli Gurrola MD Primary Care Provider Encounter Details Date Type Department Care Team (Latest Contact Info) Description 12/04/2001 Outpatient Historical [facility] [address] [place] [address] Trell York MD [address] [place] [phone] ACUTE BRONCHITIS (Primary Dx); COUGH Social History Tobacco Use Types Packs/Day Years Used Date Smoking Tobacco: Never Assessed Comments Unknown Sex and Gender Information Value Date Recorded Sex Assigned at Not on file Legal Sex Female 3:40 AM MANAGER OPERATIONS Gender Identity Not on file Sexual Orientation Not on file documented as of this encounter Plan of Treatment Not on file documented as of this encounter Visit Diagnoses Diagnosis Acute bronchitis- Primary Cough documented in this encounter Additional Health Concerns Infection Onset Date Last Indicated Resolved Time R/O COVID-19 01/31/2020 01/31/2020 02/02/2020 10:3 2 AM CDT documented as of this encounter Care Teams Rocket Engine Component Mechanic Relationship Specialty Start Date End Date Areli Gurrola MD [address] [facility] [place] [address] PCP - General Specialist 08/12/19 documented as of this encounter
--- OUTSIDE RECORDS SUMMARY | 2024-10-04 21:19 | XMS_ITS | Encounter Summary ---
Author Organization [facility] Address [address] [place] [address] Care Team Providers Care Skein Bleacher Name Role Phone Areli Gurrola MD Primary Care Provider Encounter Details Date Type Department Care Team (Latest Contact Info) Description 11/25/2002 Outpatient Historical [facility] [place] [address] [place] [address] Gordon Cabral MD NO ADDRESS ON FILE DYSMENORRHEA (Primary Dx) Social History Tobacco Use Types Packs/Day Years Used Date Smoking Tobacco: Never Assessed Comments Unknown Sex and Gender Information Value Date Recorded Sex Assigned at Not on file Legal Sex Female 3:40 AM COLLAR SEPARATOR Gender Identity Not on file Sexual Orientation Not on file documented as of this encounter Plan of Treatment Not on file documented as of this encounter Visit Diagnoses Diagnosis Dysmenorrhea- Primary documented in this encounter Additional Health Concerns Infection Onset Date Last Indicated Resolved Time R/O COVID-19 01/31/2020 01/31/2020 02/02/2020 10:3 2 AM CDT documented as of this encounter Care Teams Skein Bleacher Relationship Specialty Start Date End Date Areli Gurrola MD [address] [facility] [place] [address] PCP - General Specialist 08/12/19 documented as of this encounter
--- OUTSIDE RECORDS SUMMARY | 2024-10-04 21:19 | XMS_ITS | Encounter Summary ---
Author Organization [facility] Address [address] [place] [address] Care Team Providers Care Supervisor Weaving Name Role Phone Areli Gurrola MD Primary Care Provider Encounter Details Date Type Department Care Team (Late st Contact Info) Description 04/14/2002 Outpatient Historical [facility] [address] [place] [address] Miguelangel Mas, NO ADDRESS ON FILE JOINT PAIN-ANKLE (Primary Dx) Social History Tobacco Use Types Packs/Day Years Used Date Smoking Tobacco: Never Assessed Comments Unknown Sex and Gender Information Value Date Recorded Sex Assigned at Not on file Legal Sex Female 3:40 AM FLOWER SHOP MANAGER Gender Identity Not on file Sexual Orientation Not on file documented as of this encounter Plan of Treatment Not on file documented as of this encounter Visit Diagnoses Diagnosis Pain in joint, ankle and foot- Primary documented in this encounter Additional Health Concerns Infection Onset Date Last Indicated Resolved Time R/O COVID-19 01/31/2020 01/31/2020 02/02/2020 10:3 2 AM CDT documented as of this encounter Care Teams Supervisor Weaving Relationship Specialty Start Date End Date Areli Gurrola MD [address] [facility] [place] [address] PCP - General Specialist 08/12/19 documented as of this encounter
--- OUTSIDE RECORDS SUMMARY | 2024-10-04 21:19 | XMS_ITS | Encounter Summary ---
Author Organization [facility] Address [address] [place] [address] Care Team Providers Care Sample Hand Name Role Phone Areli Gurrola MD Primary Care Provider Encounter Details Date Type Department Care Team (Latest Contact Info) Description 12/18/2002 Outpatient [facility] [place] [address] [place] [address] Gordon Cabral MD NO ADDRESS ON FILE PREOP EXAM OTHER SPECIFIED (Primary Dx); Excessive menstruation; FEMALE GENITAL SYMPTOMS NOS Social History Tobacco Use Types Packs/Day Years Used Date Smoking Tobacco: Never Assessed Comments Unknown Sex and Gender Information Value Date Recorded Sex Assigned at Not on file Legal Sex Female 3:40 AM CRYOGENIC TRANSPORT DRIVER Gender Identity Not on file Sexual Orientation Not on file documented as of this encounter Plan of Treatment Not on file documented as of this encounter Visit Diagnoses Diagnosis Other specified pre-operative examination- Primary Excessive menstruation Excessive or frequent menstruation Unspecified symptom associated with female genital organs documented in this encounter Additional Health Concerns Infection Onset Date Last Indicated Resolved Time R/O COVID-19 01/31/2020 01/31/2020 02/02/2020 10:3 2 AM CDT documented as of this encounter Care Teams Sample Hand Relationship Specialty Start Date End Date Areli Gurrola MD [address] [place] [address] PCP - General Specialist 08/12/19 documented as of this encounter
--- OUTSIDE RECORDS SUMMARY | 2024-10-04 21:19 | XMS_ITS | Encounter Summary ---
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
--- OUTSIDE RECORDS SUMMARY | 2024-10-04 21:19 | XMS_ITS | Encounter Summary ---
Author Organization [facility] Address [address] [place] [address] Care Team Providers Care Textile Clothing And Footwear Mechanic Name Role Phone Areli Gurrola MD Primary Care Provider Encounter Details Date Type Department Care Team (Latest Contact Info) Description 07/05/1998 Outpatient Historical [facility] PLASTIC SURGERY Charli Perez MD NO ADDRESS ON FILE Other specified aftercare following surgery (Primary Dx) Social History Tobacco Use Types Packs/Day Years Used Date Smoking Tobacco: Never Assessed Comments Unknown Sex and Gender Information Value Date Recorded Sex Assigned at Not on file Legal Sex Female 3:40 AM COMPARISON SHOPPER Gender Identity Not on file Sexual Orientation Not on file documented as of this encounter Plan of Treatment Not on file documented as of this encounter Visit Diagnoses Diagnosis Other specified aftercare following surgery- Primary documented in this encounter Additional Health Concerns Infection Onset Date Last Indicated Resolved Time R/O COVID-19 01/31/2020 01/31/2020 02/02/2020 10:3 2 AM CDT documented as of this encounter Care Teams Textile Clothing And Footwear Mechanic Relationship Specialty Start Date End Date Areli Gurrola MD [address] [place] [address] PCP - General Specialist 08/12/19 documented as of this encounter
--- OUTSIDE RECORDS SUMMARY | 2024-10-04 21:19 | XMS_ITS | Encounter Summary ---
Author Organization [facility] Address [address] [place] [address] Care Team Providers Care Manager Operations Research Name Role Phone Areli Gurrola MD Primary Care Provider Encounter Details Date Type Department Care Team (Late st Contact Info) Description 03/11/1999 Outpatient Historical [facility] Social History Tobacco Use Types Packs/Day Years Used Date Smoking Tobacco: Never Assessed Comments Unknown Sex and Gender Information Value Date Recorded Sex Assigned at Not on file Legal Sex Female 3:40 AM PALM AND BACK FORGER Gender Identity Not on file Sexual Orientation Not on file documented as of this encounter Plan of Treatment Not on file documented as of this encounter Visit Diagnoses Not on filedocumented in this encounter Additional Health Concerns Infection Onset Date Last Indicated Resolved Time R/O COVID-19 01/31/2020 01/31/2020 02/02/2020 10:3 2 AM CDT documented as of this encounter Care Teams Manager Operations Research Relationship Specialty Start Date End Date Areli Gurrola MD [address] [place] [address] PCP - General Specialist 08/12/19 documented as of this encounter
--- OUTSIDE RECORDS SUMMARY | 2024-10-04 21:19 | XMS_ITS | Encounter Summary ---
Author Organization [facility] Address [address] [place] [address] Care Team Providers Care Oracle Solutions Architect Name Role Phone Areli Gurrola MD Primary Care Provider Encounter Details Date Type Department Care Team (Late st Contact Info) Description 04/07/1999 Outpatient Historical [facility] Social History Tobacco Use Types Packs/Day Years Used Date Smoking Tobacco: Never Assessed Comments Unknown Sex and Gender Information Value Date Recorded Sex Assigned at Not on file Legal Sex Female 3:40 AM CLOCK AND WATCH HANDS MOUNTER Gender Identity Not on file Sexual Orientation Not on file documented as of this encounter Plan of Treatment Not on file documented as of this encounter Visit Diagnoses Not on filedocumented in this encounter Additional Health Concerns Infection Onset Date Last Indicated Resolved Time R/O COVID-19 01/31/2020 01/31/2020 02/02/2020 10:3 2 AM CDT documented as of this encounter Care Teams Oracle Solutions Architect Relationship Specialty Start Date End Date Areli Gurrola MD [address] [place] [address] PCP - General Specialist 08/12/19 documented as of this encounter
--- OUTSIDE RECORDS SUMMARY | 2024-10-04 21:19 | XMS_ITS | Encounter Summary ---
Author Organization [facility] Address [address] [place] [address] Care Team Providers Care Energy Project Engineer Name Role Phone Areli Gurrola MD Primary Care Provider Encounter Details Date Type Department Care Team (Latest Contact Info) Description 11/20/2001 Outpatient Historical [facility] [address] [place] [address] Trell York MD [address] [place] [phone] LUMBAGO (Primary Dx); SEBACEOUS CYST Social History Tobacco Use Types Packs/Day Years Used Date Smoking Tobacco: Never Assessed Comments Unknown Sex and Gender Information Value Date Recorded Sex Assigned at Not on file Legal Sex Female 3:40 AM QUALITY COMPLIANCE CONSULTANT Gender Identity Not on file Sexual Orientation Not on file documented as of this encounter Plan of Treatment Not on file documented as of this encounter Visit Diagnoses Diagnosis Lumbago- Primary Sebaceous cyst documented in this encounter Additional Health Concerns Infection Onset Date Last Indicated Resolved Time R/O COVID-19 01/31/2020 01/31/2020 02/02/2020 10:3 2 AM CDT documented as of this encounter Care Teams Energy Project Engineer Relationship Specialty Start Date End Date Areli Gurrola MD [address] [place] [address] PCP - General Specialist 08/12/19 documented as of this encounter
--- OUTSIDE RECORDS SUMMARY | 2024-10-04 21:19 | XMS_ITS | Encounter Summary ---
Author Organization [facility] Address [address] [place] [address] Care Team Providers Care Chemical Research Engineer Name Role Phone Areli Gurrola MD Primary Care Provider Encounter Details Date Type Department Care Team (Latest Contact Info) Description 12/18/2002 Outpatient Historical [facility] PreAdmission Center [address] [place] [address] Gordon Cabral MD NO ADDRESS ON FILE PREOP EXAM OTHER SPECIFIED (Primary Dx) Social History Tobacco Use Types Packs/Day Years Used Date Smoking Tobacco: Never Assessed Comments Unknown Sex and Gender Information Value Date Recorded Sex Assigned at Not on file Legal Sex Female 3:40 AM COOKIE PADDER Gender Identity Not on file Sexual Orientation Not on file documented as of this encounter Plan of Treatment Not on file documented as of this encounter Visit Diagnoses Diagnosis Other specified pre-operative examination- Primary documented in this encounter Additional Health Concerns Infection Onset Date Last Indicated Resolved Time R/O COVID-19 01/31/2020 01/31/2020 02/02/2020 10:3 2 AM CDT documented as of this encounter Care Teams Chemical Research Engineer Relationship Specialty Start Date End Date Areli Gurrola MD [address] [place] [address] PCP - General Specialist 08/12/19 documented as of this encounter
--- OUTSIDE RECORDS SUMMARY | 2024-10-04 21:19 | XMS_ITS | Encounter Summary ---
Author Organization [facility] Address [address] [place] [address] Care Team Providers Care Drain Tile Machine Operator Name Role Phone Areli Gurrola MD Primary Care Provider Encounter Details Date Type Department Care Team (Latest Contact Info) Description 10/14/2002 Outpatient Historical [facility] [address] [place] [address] Trell York MD [address] [place] [phone] ACUTE URI NOS (Primary Dx); COUGH Social History Tobacco Use Types Packs/Day Years Used Date Smoking Tobacco: Never Assessed Comments Unknown Sex and Gender Information Value Date Recorded Sex Assigned at Not on file Legal Sex Female 3:40 AM VICE PRESIDENT EDUCATION Gender Identity Not on file Sexual Orientation Not on file documented as of this encounter Plan of Treatment Not on file documented as of this encounter Visit Diagnoses Diagnosis Acute upper respiratory infections of unspecified site- Primary Cough documented in this encounter Additional Health Concerns Infection Onset Date Last Indicated Resolved Time R/O COVID-19 01/31/2020 01/31/2020 02/02/2020 10:3 2 AM CDT documented as of this encounter Care Teams Drain Tile Machine Operator Relationship Specialty Start Date End Date Areli Gurrola MD [address] [facility] [place] [address] PCP - General Specialist 08/12/19 documented as of this encounter
--- OUTSIDE RECORDS SUMMARY | 2024-10-04 21:19 | XMS_ITS | Encounter Summary ---
Author Organization [facility] Address [address] [place] [address] Care Team Providers Care Glue Drier Operator Name Role Phone Areli Gurrola MD Primary Care Provider Encounter Details Date Type Department Care Team (Latest Contact Info) Description 10/01/2002 Outpatient Historical [facility] [address] [place] [address] Trell York MD [address] [place] [phone] ACUTE SINUSITIS NOS (Primary Dx) Social History Tobacco Use Types Packs/Day Years Used Date Smoking Tobacco: Never Assessed Comments Unknown Sex and Gender Information Value Date Recorded Sex Assigned at Not on file Legal Sex Female 3:40 AM PELT INSPECTOR Gender Identity Not on file Sexual Orientation Not on file documented as of this encounter Plan of Treatment Not on file documented as of this encounter Visit Diagnoses Diagnosis Acute sinusitis, unspecified- Primary documented in this encounter Additional Health Concerns Infection Onset Date Last Indicated Resolved Time R/O COVID-19 01/31/2020 01/31/2020 02/02/2020 10:3 2 AM CDT documented as of this encounter Care Teams Glue Drier Operator Relationship Specialty Start Date End Date Areli Gurrola MD [address] [facility] [place] [address] PCP - General Specialist 08/12/19 documented as of this encounter
--- OUTSIDE RECORDS SUMMARY | 2024-10-04 21:19 | XMS_ITS | Encounter Summary ---
Author Organization [facility] Address [address] [place] [address] Care Team Providers Care Marketing Producer Name Role Phone Areli Gurrola MD Primary Care Provider Encounter Details Date Type Department Care Team (Late st Contact Info) Description 06/24/2003 Outpatient Historical [facility] Imaging Services [address] [place] [phone] Shayy Landry MD [address] [address] Social History Tobacco Use Types Packs/Day Years Used Date Smoking Tobacco: Never Assessed Comments Unknown Sex and Gender Information Value Date Recorded Sex Assigned at Not on file Legal Sex Female 3:40 AM OVEN TENDER BAGELS Gender Identity Not on file Sexual Orientation Not on file documented as of this encounter Plan of Treatment Not on file documented as of this encounter Visit Diagnoses Not on filedocumented in this encounter Additional Health Concerns Infection Onset Date Last Indicated Resolved Time R/O COVID-19 01/31/2020 01/31/2020 02/02/2020 10:3 2 AM CDT documented as of this encounter Care Teams Marketing Producer Relationship Specialty Start Date End Date Areli Gurrola MD [address] [facility] [place] [place] [address] PCP - General Specialist 08/12/19 documented as of this encounter
--- OUTSIDE RECORDS SUMMARY | 2024-10-04 21:19 | XMS_ITS | Encounter Summary ---
Author Organization [facility] Address [address] [place] [address] Care Team Providers Care Design Studio Consultant Name Role Phone Areli Gurrola MD Primary Care Provider Encounter Details Date Type Department Care Team (Latest Contact Info) Description 10/16/2002 Outpatient [facility] [place] [address] [place] [address] Gordon Cabral MD NO ADDRESS ON FILE PREOP EXAM OTHER SPECIFIED (Primary Dx); Excessive menstruation Social History Tobacco Use Types Packs/Day Years Used Date Smoking Tobacco: Never Assessed Comments Unknown Sex and Gender Information Value Date Recorded Sex Assigned at Not on file Legal Sex Female 3:40 AM PHOTOGRAPHIC DEVELOPER AND PRINTER Gender Identity Not on file Sexual Orientation Not on file documented as of this encounter Plan of Treatment Not on file documented as of this encounter Visit Diagnoses Diagnosis Other specified pre-operative examination- Primary Excessive menstruation Excessive or frequent menstruation documented in this encounter Additional Health Concerns Infection Onset Date Last Indicated Resolved Time R/O COVID-19 01/31/2020 01/31/2020 02/02/2020 10:3 2 AM CDT documented as of this encounter Care Teams Design Studio Consultant Relationship Specialty Start Date End Date Areli Gurrola MD [address] [facility] [place] [phone] PCP - General Specialist 08/12/19 documented as of this encounter
--- OUTSIDE RECORDS SUMMARY | 2024-10-04 21:19 | XMS_ITS | Encounter Summary ---
Author Organization [facility] Address [address] [place] [address] Care Team Providers Care Reheat Furnace Operator Name Role Phone Areli Gurrola MD Primary Care Provider Encounter Details Date Type Department Care Team (Latest Contact Info) Description 02/05/2003 Outpatient Historical [facility] [place] [address] [place] [address] Gordon Cabral MD NO ADDRESS ON FILE SURGERY FOLLOWUP, UNSPEC (Primary Dx) Social History Tobacco Use Types Packs/Day Years Used Date Smoking Tobacco: Never Assessed Comments Unknown Sex and Gender Information Value Date Recorded Sex Assigned at Not on file Legal Sex Female 3:40 AM AUTOMOTIVE DESIGNER Gender Identity Not on file Sexual Orientation Not on file documented as of this encounter Plan of Treatment Not on file documented as of this encounter Visit Diagnoses Diagnosis Follow-up examination, following unspecified surgery- Primary documented in this encounter Additional Health Concerns Infection Onset Date Last Indicated Resolved Time R/O COVID-19 01/31/2020 01/31/2020 02/02/2020 10:3 2 AM CDT documented as of this encounter Care Teams Reheat Furnace Operator Relationship Specialty Start Date End Date Areli Gurrola MD [address] [facility] [place] [address] PCP - General Specialist 08/12/19 documented as of this encounter
--- OUTSIDE RECORDS SUMMARY | 2024-10-04 21:19 | XMS_ITS | Encounter Summary ---
Author Organization [facility] Address [address] [place] [address] Care Team Providers Care Regional Operations Director Name Role Phone Areli Gurrola MD Primary Care Provider Encounter Details Date Type Department Care Team (Latest Contact Info) Description 10/09/2002 Outpatient Historical [facility] [place] [address] [place] [address] Gordon Cabral MD NO ADDRESS ON FILE Excessive menstruation (Primary Dx) Social History Tobacco Use Types Packs/Day Years Used Date Smoking Tobacco: Never Assessed Comments Unknown Sex and Gender Information Value Date Recorded Sex Assigned at Not on file Legal Sex Female 3:40 AM INCIDENT RESPONSE COORDINATOR Gender Identity Not on file Sexual Orientation Not on file documented as of this encounter Plan of Treatment Not on file documented as of this encounter Visit Diagnoses Diagnosis Excessive menstruation- Primary Excessive or frequent menstruation documented in this encounter Additional Health Concerns Infection Onset Date Last Indicated Resolved Time R/O COVID-19 01/31/2020 01/31/2020 02/02/2020 10:3 2 AM CDT documented as of this encounter Care Teams Regional Operations Director Relationship Specialty Start Date End Date Areli Gurrola MD [address] [facility] [place] [address] PCP - General Specialist 08/12/19 documented as of this encounter
--- OUTSIDE RECORDS SUMMARY | 2024-10-04 21:19 | XMS_ITS | Encounter Summary ---
Author Organization [facility] Address [address] [place] [address] Care Team Providers Care Skin Care Therapist Name Role Phone Areli Gurrola MD Primary Care Provider Encounter Details Date Type Department Care Team (Latest Contact Info) Description 07/26/1998 Outpatient Historical [facility] Charli Perez MD NO ADDRESS ON FILE Other specified aftercare following surgery (Primary Dx) Social History Tobacco Use Types Packs/Day Years Used Date Smoking Tobacco: Never Assessed Comments Unknown Sex and Gender Information Value Date Recorded Sex Assigned at Not on file Legal Sex Female 3:40 AM COW BUYER Gender Identity Not on file Sexual Orientation [...] documented as of this encounter Care Teams Skin Care Therapist Relationship Specialty Start Date End Date Areli Gurrola MD [address] [place] [address] PCP - General Specialist 08/12/19 documented as of this encounter
--- OUTSIDE RECORDS SUMMARY | 2024-10-04 21:19 | XMS_ITS | Encounter Summary ---
Author Organization [facility] Address [address] [place] [address] Care Team Providers Care Forest Manager Name Role Phone Areli Gurrola MD Primary Care Provider Encounter Details Date Type Department Care Team (Latest Contact Info) Description 03/14/1999 Outpatient [facility] [address] [place] [address] Ti Rondon MD [address] [place] [address] Abdominal pain, unspecified site (Primary Dx); Fever and other physiologic disturbances of temperature regulation; Backache, unspecified Social History Tobacco Use Types Packs/Day Years Used Date Smoking Tobacco: Never Assessed Comments Unknown Sex and Gender Information Value Date Recorded Sex Assigned at Not on file Legal Sex Female 3:40 AM ELEMENTARY READING SPECIALIST Gender Identity Not on file Sexual Orientation Not on file documented as of this encounter Plan of Treatment Not on file documented as of this encounter Visit Diagnoses Diagnosis Abdominal pain, unspecified site- Primary Fever and other physiologic disturbances of temperature regulation Backache, unspecified documented in this encounter Additional Health Concerns Infection Onset Date Last Indicated Resolved Time R/O COVID-19 01/31/2020 01/31/2020 02/02/2020 10:3 2 AM CDT documented as of this encounter Care Teams Forest Manager Relationship Specialty Start Date End Date Areli Gurrola MD [address] [place] [address] PCP - General Specialist 08/12/19 documented as of this encounter
--- OUTSIDE RECORDS SUMMARY | 2024-10-04 21:19 | XMS_ITS | Encounter Summary ---
Author Organization [facility] Address [address] [place] [address] Care Team Providers Care Material Manager Name Role Phone Areli Gurrola MD Primary Care Provider Encounter Details Date Type Department Care Team (Latest Contact Info) Description 04/10/2002 Outpatient Historical [facility] Endoscopy Andrés [address] [facility] [address] [place] [address] Gildardo Ace MD [address] [place] [phone] ABDOMINAL PAIN EPIGASTRIC (Primary Dx) Social History Tobacco Use Types Packs/Day Years Used Date Smoking Tobacco: Never Assessed Comments Unknown Sex and Gender Information Value Date Recorded Sex Assigned at Not on file Legal Sex Female 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 MOLD 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 Gender Identity Not on file Sexual Orientation Not on file documented as of this encounter Plan of Treatment Not on file documented as of this encounter Visit Diagnoses Diagnosis Abdominal pain, epigastric- Primary documented in this encounter Additional Health Concerns Infection Onset Date Last Indicated Resolved Time R/O COVID-19 01/31/2020 01/31/2020 02/02/2020 10:3 2 AM CDT documented as of this encounter Care Teams Material Manager Relationship Specialty Start Date End Date Areli Gurrola MD [address] [facility] [place] [address] PCP - General Specialist 08/12/19 documented as of this encounter
--- OUTSIDE RECORDS SUMMARY | 2024-10-04 21:19 | XMS_ITS | Encounter Summary ---
Author Organization [facility] Address [address] [place] [address] Care Team Providers Care Windows Systems Engineer Name Role Phone Areli Gurrola MD Primary Care Provider Encounter Details Date Type Department Care Team (Late st Contact Info) Description 07/07/2004 Outpatient Historical [facility] Imaging [facility] [address] [place] [address] [address] [address] Social History Tobacco Use Types Packs/Day Years Used Date Smoking Tobacco: Never Assessed Comments Unknown Sex and Gender Information Value Date Recorded Sex Assigned at Not on file Legal Sex Female 3:40 AM COMPANY LAUNDRY WORKER Gender Identity Not on file Sexual Orientation Not on file documented as of this encounter Plan of Treatment Not on file documented as of this encounter Visit Diagnoses Not on filedocumented in this encounter Additional Health Concerns Infection Onset Date Last Indicated Resolved Time R/O COVID-19 01/31/2020 01/31/2020 02/02/2020 10:3 2 AM CDT documented as of this encounter Care Teams Windows Systems Engineer Relationship Specialty Start Date End Date Areli Gurrola MD [address] [place] [address] PCP - General Specialist 08/12/19 documented as of this encounter
--- OUTSIDE RECORDS SUMMARY | 2024-10-04 21:19 | XMS_ITS | Encounter Summary ---
Author Organization [facility] Address [address] [place] [address] Care Team Providers Care Collar Turner Operator Name Role Phone Areli Gurrola MD Primary Care Provider Encounter Details Date Type Department Care Team (Latest Contact Info) Description 10/22/2002 Outpatient Historical [facility] Operating Room [address] [place] [address] Gordon Cabral MD NO ADDRESS ON FILE POLYP OF CORPUS UTERI (Primary Dx) Social History Tobacco Use Types Packs/Day Years Used Date Smoking Tobacco: Never Assessed Comments Unknown Sex and Gender Information Value Date Recorded Sex Assigned at Not on file Legal Sex Female 3:40 AM SHORT HAUL DRIVER Gender Identity Not on file Sexual Orientation Not on file documented as of this encounter Plan of Treatment Not on file documented as of this encounter Visit Diagnoses Diagnosis Polyp of corpus uteri- Primary documented in this encounter Additional Health Concerns Infection Onset Date Last Indicated Resolved Time R/O COVID-19 01/31/2020 01/31/2020 02/02/2020 10:3 2 AM CDT documented as of this encounter Care Teams Collar Turner Operator Relationship Specialty Start Date End Date Areli Gurrola MD [address] [place] [address] PCP - General Specialist 08/12/19 documented as of this encounter
--- OUTSIDE RECORDS SUMMARY | 2024-10-04 21:19 | XMS_ITS | Encounter Summary ---
Author Organization [facility] Address [address] [place] [address] Care Team Providers Care Concrete Mixer Truck Driver Name Role Phone Areli Gurrola MD Primary Care Provider Encounter Details Date Type Department Care Team (Latest Contact Info) Description 10/03/2002 [facility] [address] [place] [address] [place] [address] Gordon Cabral MD NO ADDRESS ON FILE MENSTRUAL DISORDER NEC (Primary Dx) Social History Tobacco Use Types Packs/Day Years Used Date Smoking Tobacco: Never Assessed Comments Unknown Sex and Gender Information Value Date Recorded Sex Assigned at Not on file Legal Sex Female 3:40 AM PAYROLL SUPERVISOR Gender Identity Not on file Sexual Orientation Not on file documented as of this encounter Plan of Treatment Not on file documented as of this encounter Visit Diagnoses Diagnosis Other disorder of menstruation and other abnormal bleeding from female genital tract- Primary documented in this encounter Additional Health Concerns Infection Onset Date Last Indicated Resolved Time R/O COVID-19 01/31/2020 01/31/2020 02/02/2020 10:3 2 AM CDT documented as of this encounter Care Teams Concrete Mixer Truck Driver Relationship Specialty Start Date End Date Areli Gurrola MD [address] [facility] [place] [address] PCP - General Specialist 08/12/19 documented as of this encounter
--- OUTSIDE RECORDS SUMMARY | 2024-10-04 21:19 | XMS_ITS | Encounter Summary ---
Author Organization [facility] Address [address] [place] [address] Care Team Providers Care Coal Trimmer Name Role Phone Areli Gurrola MD Primary Care Provider Encounter Details Date Type Department Care Team (Late st Contact Info) Description 03/31/1999 Outpatient Historical [facility] Social History Tobacco Use Types Packs/Day Years Used Date Smoking Tobacco: Never Assessed Comments Unknown Sex and Gender Information Value Date Recorded Sex Assigned at Not on file Legal Sex Female 3:40 AM RAT CULTURIST Gender Identity Not on file Sexual Orientation Not on file documented as of this encounter Plan of Treatment Not on file documented as of this encounter Visit Diagnoses Not on filedocumented in this encounter Additional Health Concerns Infection Onset Date Last Indicated Resolved Time R/O COVID-19 01/31/2020 01/31/2020 02/02/2020 10:3 2 AM CDT documented as of this encounter Care Teams Coal Trimmer Relationship Specialty Start Date End Date Areli Gurrola MD [address] [place] [address] PCP - General Specialist 08/12/19 documented as of this encounter
--- OUTSIDE RECORDS SUMMARY | 2024-10-04 21:19 | XMS_ITS | Encounter Summary ---
Author Organization [facility] Address [address] [place] [address] Care Team Providers Care Single Stroke Preformer Name Role Phone Areli Gurrola MD Primary Care Provider Encounter Details Date Type Department Care Team (Latest Contact Info) Description 07/30/2002 Outpatient Historical [facility] [address] [place] [address] Trell York MD [address] [place] [phone] INSOMNIA NEC (Primary Dx); NEUROTIC DEPRESSION; LUMBAGO Social History Tobacco Use Types Packs/Day Years Used Date Smoking Tobacco: Never Assessed Comments Unknown Sex and Gender Information Value Date Recorded Sex Assigned at Not on file Legal Sex Female 3:40 AM ENGINEERING PRODUCTION WORKER Gender Identity Not on file Sexual Orientation Not on file documented as of this encounter Plan of Treatment Not on file documented as of this encounter Visit Diagnoses Diagnosis Insomnia, unspecified- Primary Dysthymic disorder Lumbago documented in this encounter Additional Health Concerns Infection Onset Date Last Indicated Resolved Time R/O COVID-19 01/31/2020 01/31/2020 02/02/2020 10:3 2 AM CDT documented as of this encounter Care Teams Single Stroke Preformer Relationship Specialty Start Date End Date Areli Gurrola MD [address] [facility] [place] [address] PCP - General Specialist 08/12/19 documented as of this encounter
--- OUTSIDE RECORDS SUMMARY | 2024-10-04 21:19 | XMS_ITS | Encounter Summary ---
Author Organization [facility] Address [address] [place] [address] Care Team Providers Care Partnership Manager Name Role Phone Areli Gurrola MD Primary Care Provider Encounter Details Date Type Department Care Team (Latest Contact Info) Description 04/25/2004 Outpatient Historical [facility] [address] [place] [address] Trell York MD [address] [place] [phone] DYSTHYMIC DISORDER (Primary Dx); LUMBAGO; Pain in limb; Inflamed seborr keratos Social History Tobacco Use Types Packs/Day Years Used Date Smoking Tobacco: Never Assessed Comments Unknown Sex and Gender Information Value Date Recorded Sex Assigned at Not on file Legal Sex Female 3:40 AM TIE CARRIER Gender Identity Not on file Sexual Orientation Not on file documented as of this encounter Plan of Treatment Not on file documented as of this encounter Visit Diagnoses Diagnosis Dysthymic disorder- Primary Lumbago Pain in limb Pain in soft tissues of limb Inflamed seborr keratos Inflamed seborrheic keratosis documented in this encounter Additional Health Concerns Infection Onset Date Last Indicated Resolved Time R/O COVID-19 01/31/2020 01/31/2020 02/02/2020 10:3 2 AM CDT documented as of this encounter Care Teams Partnership Manager Relationship Specialty Start Date End Date Areli Gurrola MD [address] [facility] [address] PCP - General Specialist 08/12/19 documented as of this encounter
--- OUTSIDE RECORDS SUMMARY | 2024-10-04 21:19 | XMS_ITS | Encounter Summary ---
Author Organization [facility] Address [address] [place] [address] Care Team Providers Care Bus Dispatcher Interstate Name Role Phone Areli Gurrola MD Primary Care Provider Encounter Details Date Type Department Care Team (Latest Contact Info) Description 02/14/1999 Outpatient Historical [facility] [place] [address] [place] [address] Alum[place], Gibran Lynn MD [address] [place] [address] Sprain and strain of other specified sites of shoulder and upper arm (Primary Dx) Social History Tobacco Use Types Packs/Day Years Used Date Smoking Tobacco: Never Assessed Comments Unknown Sex and Gender Information Value Date Recorded Sex Assigned at Not on file Legal Sex Female 3:40 AM SECURITY AGENT Gender Identity Not on file Sexual Orientation Not on file documented as of this encounter Plan of Treatment Not on file documented as of this encounter Visit Diagnoses Diagnosis Sprain and strain of other specified sites of shoulder and upper arm- Primary documented in this encounter Additional Health Concerns Infection Onset Date Last Indicated Resolved Time R/O COVID-19 01/31/2020 01/31/2020 02/02/2020 10:3 2 AM CDT documented as of this encounter Care Teams Bus Dispatcher Interstate Relationship Specialty Start Date End Date Areli Gurrola MD [address] [place] [address] PCP - General Specialist 08/12/19 documented as of this encounter
--- OUTSIDE RECORDS SUMMARY | 2024-10-04 21:19 | XMS_ITS | Encounter Summary ---
Author Organization [facility] Address [address] [place] [address] Care Team Providers Care Cardiographer Name Role Phone Areli Gurrola MD Primary Care Provider Encounter Details Date Type Department Care Team (Late st Contact Info) Description 10/27/2002 Emergency [facility] Emergency Department [address] [place] [address] Cira Archibald MD NO ADDRESS ON FILE FEMALE GENITAL SYMPTOMS NOS (Primary Dx) Social History Tobacco Use Types Packs/Day Years Used Date Smoking Tobacco: Never Assessed Comments Unknown Sex and Gender Information Value Date Recorded Sex Assigned at Not on file Legal Sex Female 3:40 AM SETTLEMENT CLERK Gender Identity Not on file Sexual Orientation Not on file documented as of this encounter Plan of Treatment Not on file documented as of this encounter Visit Diagnoses Diagnosis Unspecified symptom associated with female genital organs- Primary documented in this encounter Additional Health Concerns Infection Onset Date Last Indicated Resolved Time R/O COVID-19 01/31/2020 01/31/2020 02/02/2020 10:3 2 AM CDT documented as of this encounter Care Teams Cardiographer Relationship Specialty Start Date End Date Areli Gurrola MD [address] [place] [address] PCP - General Specialist 08/12/19 documented as of this encounter
--- OUTSIDE RECORDS SUMMARY | 2024-10-04 21:19 | XMS_ITS | Encounter Summary ---
Author Organization [facility] Address [address] [place] [address] Care Team Providers Care Utility Sales And Service Manager Name Role Phone Areli Gurrola MD Primary Care Provider Encounter Details Date Type Department Care Team (Late st Contact Info) Description 03/31/1999 Outpatient Historical [facility] Social History Tobacco Use Types Packs/Day Years Used Date Smoking Tobacco: Never Assessed Comments Unknown Sex and Gender Information Value Date Recorded Sex Assigned at Not on file Legal Sex Female 3:40 AM VENDING MANAGER Gender Identity Not on file Sexual Orientation Not on file documented as of this encounter Plan of Treatment Not on file documented as of this encounter Visit Diagnoses Not on filedocumented in this encounter Additional Health Concerns Infection Onset Date Last Indicated Resolved Time R/O COVID-19 01/31/2020 01/31/2020 02/02/2020 10:3 2 AM CDT documented as of this encounter Care Teams Utility Sales And Service Manager Relationship Specialty Start Date End Date Areli Gurrola MD [address] [place] [address] PCP - General Specialist 08/12/19 documented as of this encounter
--- OUTSIDE RECORDS SUMMARY | 2024-10-04 21:19 | XMS_ITS | Encounter Summary ---
Author Organization [facility] Address [address] [place] [address] Care Team Providers Care Licensed Physical Therapy Assistant Name Role Phone Areli Gurrola MD Primary Care Provider Encounter Details Date Type Department Care Team (Latest Contact Info) Description 05/20/2003 Outpatient Historical [facility] [address] [place] [address] Trell [place] MD [address] [place] [phone] ACUTE BRONCHITIS (Primary Dx) Social History Tobacco Use Types Packs/Day Years Used Date Smoking Tobacco: Never Assessed Comments Unknown Sex and Gender Information Value Date Recorded Sex Assigned at Not on file Legal Sex Female 3:40 AM CLINICAL TRIAL COORDINATOR Gender Identity Not on file Sexual Orientation Not on file documented as of this encounter Plan of Treatment Not on file documented as of this encounter Visit Diagnoses Diagnosis Acute bronchitis- Primary documented in this encounter Additional Health Concerns Infection Onset Date Last Indicated Resolved Time R/O COVID-19 01/31/2020 01/31/2020 02/02/2020 10:3 2 AM CDT documented as of this encounter Care Teams Licensed Physical Therapy Assistant Relationship Specialty Start Date End Date Areli Gurrola MD [address] [facility] [place] [address] PCP - General Specialist 08/12/19 documented as of this encounter
--- OUTSIDE RECORDS SUMMARY | 2024-10-04 21:19 | XMS_ITS | Encounter Summary ---
Author Organization [facility] Address [address] [place] [address] Care Team Providers Care Carpet Cutter Name Role Phone Areli Gurrola MD Primary Care Provider Encounter Details Date Type Department Care Team (Latest Contact Info) Description 07/19/1998 Outpatient Historical [facility] Charli Perez MD NO ADDRESS ON FILE Scar condition and fibrosis of skin (Primary Dx) Social History Tobacco Use Types Packs/Day Years Used Date Smoking Tobacco: Never Assessed Comments Unknown Sex and Gender Information Value Date Recorded Sex Assigned at Not on file Legal Sex Female 3:40 AM MANAGER OF COMMUNITY RELATIONS Gender Identity Not on file Sexual Orientation Not on file documented as of this encounter Plan of Treatment Not on file documented as of this encounter Visit Diagnoses Diagnosis Scar condition and fibrosis of skin- Primary documented in this encounter Additional Health Concerns Infection Onset Date Last Indicated Resolved Time R/O COVID-19 01/31/2020 01/31/2020 02/02/2020 10:3 2 AM CDT documented as of this encounter Care Teams Carpet Cutter Relationship Specialty Start Date End Date Areli Gurrola MD [address] [place] [address] PCP - General Specialist 08/12/19 documented as of this encounter
--- OUTSIDE RECORDS SUMMARY | 2024-10-04 21:19 | XMS_ITS | Encounter Summary ---
Author Organization [facility] Address [address] [place] [address] Care Team Providers Care Engineer Soils Name Role Phone Areli Gurrola MD Primary Care Provider Encounter Details Date Type Department Care Team (Latest Contact Info) Description 10/28/2002 Outpatient [facility] [place] [address] [place] [address] Gordon Cabral MD NO ADDRESS ON FILE SURGERY FOLLOWUP, UNSPEC (Primary Dx) Social History Tobacco Use Types Packs/Day Years Used Date Smoking Tobacco: Never Assessed Comments Unknown Sex and Gender Information Value Date Recorded Sex Assigned at Not on file Legal Sex Female 3:40 AM LABORER 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
--- OUTSIDE RECORDS SUMMARY | 2024-10-04 21:19 | XMS_ITS | Encounter Summary ---
Author Organization [facility] Address [address] [place] [address] Care Team Providers Care Marine Tower Operator Name Role Phone Areli Gurrola MD Primary Care Provider Encounter Details Date Type Department Care Team (Late st Contact Info) Description 12/24/2002 Inpatient Historical [facility] Gordon Cabral MD NO ADDRESS ON FILE EXCESSIVE MENSTRUATION (Primary Dx) Social History Tobacco Use Types Packs/Day Years Used Date Smoking Tobacco: Never Assessed Comments Unknown Sex and Gender Information Value Date Recorded Sex Assigned at Not on file Legal Sex Female 3:40 AM BEFORE SCHOOL Gender Identity Not on file Sexual Orientation Not on file documented as of this encounter Plan of Treatment Not on file documented as of this encounter Visit Diagnoses Diagnosis Excessive or frequent menstruation- Primary documented in this encounter Additional Health Concerns Infection Onset Date Last Indicated Resolved Time R/O COVID-19 01/31/2020 01/31/2020 02/02/2020 10:3 2 AM CDT documented as of this encounter Care Teams Marine Tower Operator Relationship Specialty Start Date End Date Areli Gurrola MD [address] [place] [address] PCP - General Specialist 08/12/19 documented as of this encounter
--- OUTSIDE RECORDS SUMMARY | 2024-10-04 21:19 | XMS_ITS | Encounter Summary ---
Author Organization [facility] Address [address] [place] [address] Care Team Providers Care Clinical Trainer Name Role Phone Areli Gurrola MD Primary Care Provider Encounter Details Date Type Department Care Team (Latest Contact Info) Description 10/09/2002 Outpatient Historical [facility] [place] [address] [place] [address] Gordon Cabral MD NO ADDRESS ON FILE Excessive menstruation (Primary Dx) Social History Tobacco Use Types Packs/Day Years Used Date Smoking Tobacco: Never Assessed Comments Unknown Sex and Gender Information Value Date Recorded Sex Assigned at Not on file Legal Sex Female 3:40 AM DATA PROCESSING MECHANIC Gender Identity Not on file Sexual [...] as of this encounter Care Teams Clinical Trainer Relationship Specialty Start Date End Date Areli Gurrola MD [address] [place] [address] PCP - General Specialist 08/12/19 documented as of this encounter
--- OUTSIDE RECORDS SUMMARY | 2024-10-04 21:19 | XMS_ITS | Encounter Summary ---
Author Organization [facility] Address [address] 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
--- OUTSIDE RECORDS SUMMARY | 2024-10-04 21:19 | XMS_ITS | Encounter Summary ---
Author Organization [facility] Address [address] [place] [address] Care Team Providers Care Supervisor Pressing Department Name Role Phone Areli Gurrola MD Primary Care Provider Encounter Details Date Type Department Care Team (Latest Contact Info) Description 06/22/2003 Outpatient Historical [facility] [address] [place] [address] Trell [place] MD [address] [place] [phone] CHEST PAIN NOS (Primary Dx); ABN INVOLUN MOVEMENT NEC; CERVICALGIA Social History Tobacco Use Types Packs/Day Years Used Date Smoking Tobacco: Never Assessed Comments Unknown Sex and Gender Information Value Date Recorded Sex Assigned at Not on file Legal Sex Female 3:40 AM TRANSITION MGR RN Gender Identity Not on file Sexual Orientation Not on file documented as of this encounter Plan of Treatment Not on file documented as of this encounter Visit Diagnoses Diagnosis Chest pain, unspecified- Primary Abnormal involuntary movements(781.0) Abnormal involuntary movements Cervicalgia documented in this encounter Additional Health Concerns Infection Onset Date Last Indicated Resolved Time R/O COVID-19 01/31/2020 01/31/2020 02/02/2020 10:3 2 AM CDT documented as of this encounter Care Teams Supervisor Pressing Department Relationship Specialty Start Date End Date Areli Gurrola MD [address] [facility] [place] [address] PCP - General Specialist 08/12/19 documented as of this encounter
--- OUTSIDE RECORDS SUMMARY | 2024-10-04 21:19 | XMS_ITS | Encounter Summary ---
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
--- OUTSIDE RECORDS SUMMARY | 2024-10-04 21:19 | XMS_ITS | Encounter Summary ---
Author Organization [facility] Address [address] [place] [address] Care Team Providers Care River Rafting Guide Name Role Phone Areli Gurrola MD Primary Care Provider Encounter Details Date Type Department Care Team (Latest Contact Info) Description 12/02/2002 Outpatient [facility] [place] [address] [place] [address] Gordon Cabral MD NO ADDRESS ON FILE FEMALE GENITAL SYMPTOMS NOS (Primary Dx) Social History Tobacco Use Types Packs/Day Years Used Date Smoking Tobacco: Never Assessed Comments Unknown Sex and Gender Information Value Date Recorded Sex Assigned at Not on file Legal Sex Female 3:40 AM APPROVER Gender Identity Not on file Sexual Orientation [...] documented as of this encounter Care Teams River Rafting Guide Relationship Specialty Start Date End Date Areli Gurrola MD [address] [place] [address] PCP - General Specialist 08/12/19 documented as of this encounter
--- OUTSIDE RECORDS SUMMARY | 2024-10-04 21:19 | XMS_ITS | Encounter Summary ---
Author Organization [facility] Address [address] [place] [address] Care Team Providers Care Environmental Conservation Officer Name Role Phone Areli Gurrola MD Primary Care Provider Encounter Details Date Type Department Care Team (Latest Contact Info) Description 02/02/1999 Outpatient Historical [facility] [place] [place] [address] Alumno, Gibran Lynn MD [address] [place] [address] Sprain and strain of other specified sites of shoulder and upper arm (Primary Dx); Hx musculoskletl dis NEC Social History Tobacco Use Types Packs/Day Years Used Date Smoking Tobacco: Never Assessed Comments Unknown Sex and Gender Information Value Date Recorded Sex Assigned at Not on file Legal Sex Female 3:40 AM KEYPUNCH 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 Gender Identity Not on file Sexual Orientation Not on file documented as of this encounter Plan of Treatment Not on file documented as of this encounter Visit Diagnoses Diagnosis Sprain and strain of other specified sites of shoulder and upper arm- Primary Hx musculoskletl dis NEC Personal history of other musculoskeletal disorders documented in this encounter Additional Health Concerns Infection Onset Date Last Indicated Resolved Time R/O COVID-19 01/31/2020 01/31/2020 02/02/2020 10:3 2 AM CDT documented as of this encounter Care Teams Environmental Conservation Officer Relationship Specialty Start Date End Date Areli Gurrola MD [address] [place] [address] PCP - General Specialist 08/12/19 documented as of this encounter
--- OUTSIDE RECORDS SUMMARY | 2024-10-04 21:19 | XMS_ITS | Encounter Summary ---
Author Organization [facility] Address [address] [place] [address] Care Team Providers Care Clerk Manager Name Role Phone Areli Gurrola MD Primary Care Provider Encounter Details Date Type Department Care Team (Latest Contact Info) Description 10/21/2001 Outpatient Historical [facility] [address] [place] [address] Trell [place] MD [address] [place] [phone] NEUROTIC DEPRESSION (Primary Dx); LUMBAGO; ACUTE LARYNGOTRACH W OBSTR Social History Tobacco Use Types Packs/Day Years Used Date Smoking Tobacco: Never Assessed Comments Unknown Sex and Gender Information Value Date Recorded Sex Assigned at Not on file Legal Sex Female 3:40 AM 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 PARASITOLOGIST Gender Identity Not on file Sexual Orientation Not on file documented as of this encounter Plan of Treatment Not on file documented as of this encounter Visit Diagnoses Diagnosis Dysthymic disorder- Primary Lumbago Acute laryngotracheitis with obstruction documented in this encounter Additional Health Concerns Infection Onset Date Last Indicated Resolved Time R/O COVID-19 01/31/2020 01/31/2020 02/02/2020 10:3 2 AM CDT documented as of this encounter Care Teams Clerk Manager Relationship Specialty Start Date End Date Areli Gurrola MD [address] [facility] [place] [address] PCP - General Specialist 08/12/19 documented as of this encounter
--- OUTSIDE RECORDS SUMMARY | 2024-10-04 21:19 | XMS_ITS | Encounter Summary ---
Author Organization [facility] Address [address] [place] [address] Care Team Providers Care Staff Midwife/Apprenticeship Director Name Role Phone Areli Gurrola MD Primary Care Provider Encounter Details Date Type Department Care Team (Latest Contact Info) Description 08/25/2002 Outpatient Historical [facility] [address] [place] [address] Trell [place] MD [address] [place] [phone] INSOMNIA NEC (Primary Dx); OTHER MALAISE AND FATIGUE; NEUROTIC DEPRESSION; CERVICALGIA Social History Tobacco Use Types Packs/Day Years Used Date Smoking Tobacco: Never Assessed Comments Unknown Sex and Gender Information Value Date Recorded Sex Assigned at Not on file Legal Sex Female 3:40 AM COMMISSIONING AGENT Gender Identity Not on file Sexual Orientation Not on file documented as of this encounter Plan of Treatment Not on file documented as of this encounter Visit Diagnoses Diagnosis Insomnia, unspecified- Primary Other malaise and fatigue Dysthymic disorder Cervicalgia documented in this encounter Additional Health Concerns Infection Onset Date Last Indicated Resolved Time R/O COVID-19 01/31/2020 01/31/2020 02/02/2020 10:3 2 AM CDT documented as of this encounter Care Teams Staff Midwife/Apprenticeship Director Relationship Specialty Start Date End Date Areli Gurrola MD [address] [facility] [place] [address] PCP - General Specialist 08/12/19 documented as of this encounter
--- OUTSIDE RECORDS SUMMARY | 2024-10-04 21:19 | XMS_ITS | Encounter Summary ---
Author Organization [facility] Address [address]: [place] [address] Care Team Providers Care Engineering Mathematician Name Role Phone Areli Gurrola MD Primary Care Provider Encounter Details Date Type Department Care Team (Late st Contact Info) Description 03/12/1999 Outpatient Historical [place], Gibran Lynn MD [address] [facility] [address] [place] [address] Social History Tobacco Use Types Packs/Day Years Used Date Smoking Tobacco: Never Assessed Comments Unknown Sex and Gender Information Value Date Recorded Sex Assigned at Not on file Legal Sex Female 3:40 AM NURSE ORTHOPAEDIC Gender Identity Not on file Sexual Orientation Not on file documented as of this encounter Plan of Treatment Not on file documented as of this encounter Visit Diagnoses Not on filedocumented in this encounter Additional Health Concerns Infection Onset Date Last Indicated Resolved Time R/O COVID-19 01/31/2020 01/31/2020 02/02/2020 10:3 2 AM CDT documented as of this encounter Care Teams Engineering Mathematician Relationship Specialty Start Date End Date Areli Gurrola MD [address] [facility] [address] PCP - General Specialist 08/12/19 documented as of this encounter
--- OUTSIDE RECORDS SUMMARY | 2024-10-04 21:19 | XMS_ITS | Encounter Summary ---
Author Organization [facility] Address [address] [place] [address] Care Team Providers Care Computer Systems Design Analyst Name Role Phone Areli Gurrola MD Primary Care Provider Encounter Details Date Type Department Care Team (Latest Contact Info) Description 01/11/2004 Outpatient Historical [facility] [address] [place] [address] Trell [place] MD [address] [place] [phone] CERVICALGIA (Primary Dx); DYSTHYMIC DISORDER Social History Tobacco Use Types Packs/Day Years Used Date Smoking Tobacco: Never Assessed Comments Unknown Sex and Gender Information Value Date Recorded Sex Assigned at Not on file Legal Sex Female 3:40 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 Gender Identity Not on file Sexual Orientation Not on file documented as of this encounter Plan of Treatment Not on file documented as of this encounter Visit Diagnoses Diagnosis Cervicalgia- Primary Dysthymic disorder documented in this encounter Additional Health Concerns Infection Onset Date Last Indicated Resolved Time R/O COVID-19 01/31/2020 01/31/2020 02/02/2020 10:3 2 AM CDT documented as of this encounter Care Teams Computer Systems Design Analyst Relationship Specialty Start Date End Date Areli Gurrola MD [address] [place] [address] PCP - General Specialist 08/12/19 documented as of this encounter
--- OUTSIDE RECORDS SUMMARY | 2024-10-04 21:19 | XMS_ITS | Encounter Summary ---
Author Organization [facility] Address [address] [place] [address] Care Team Providers Care Dynamite Packing Machine Operator Name Role Phone Areli Gurrola MD Primary Care Provider Encounter Details Date Type Department Care Team (Latest Contact Info) Description 08/20/2001 Outpatient Historical [facility] [address] [place] [address] Trell York MD [address] [place] [phone] ACUTE PHARYNGITIS (Primary Dx) Social History Tobacco Use Types Packs/Day Years Used Date Smoking Tobacco: Never Assessed Comments Unknown Sex and Gender Information Value Date Recorded Sex Assigned at Not on file Legal Sex Female 3: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 Gender Identity Not on file Sexual Orientation Not on file documented as of this encounter Plan of Treatment Not on file documented as of this encounter Visit Diagnoses Diagnosis Acute pharyngitis- Primary documented in this encounter Additional Health Concerns Infection Onset Date Last Indicated Resolved Time R/O COVID-19 01/31/2020 01/31/2020 02/02/2020 10:3 2 AM CDT documented as of this encounter Care Teams Dynamite Packing Machine Operator Relationship Specialty Start Date End Date Areli Gurrola MD [address] [facility] [place] [address] PCP - General Specialist 08/12/19 documented as of this encounter
--- OUTSIDE RECORDS SUMMARY | 2024-10-04 21:19 | XMS_ITS | Encounter Summary ---
Author Organization [facility] Address [address] [place] [address] Care Team Providers Care Uat Tester Name Role Phone Areli Gurrola MD Primary Care Provider Encounter Details Date Type Department Care Team (Late st Contact Info) Description 03/30/1999 Outpatient Historical [facility] Social History Tobacco Use Types Packs/Day Years Used Date Smoking Tobacco: Never Assessed Comments Unknown Sex and Gender Information Value Date Recorded Sex Assigned at Not on file Legal Sex Female 3:40 AM JAVA XML DEVELOPER Gender Identity Not on file Sexual Orientation Not on file documented as of this encounter Plan of Treatment Not on file documented as of this encounter Visit Diagnoses Not on filedocumented in this encounter Additional Health Concerns Infection Onset Date Last Indicated Resolved Time R/O COVID-19 01/31/2020 01/31/2020 02/02/2020 10:3 2 AM CDT documented as of this encounter Care Teams Uat Tester Relationship Specialty Start Date End Date Areli Gurrola MD [address] [place] [address] PCP - General Specialist 08/12/19 documented as of this encounter
--- OUTSIDE RECORDS SUMMARY | 2024-10-04 21:19 | XMS_ITS | Encounter Summary ---
Author Organization [facility] Address [address] [place] [address] Care Team Providers Care Painter Rough Name Role Phone Areli Gurrola MD Primary Care Provider Encounter Details Date Type Department Care Team (Latest Contact Info) Description 02/20/2005 Outpatient Historical [facility] [address] [place] [address] Trell York MD [address] [place] [phone] LUMBAGO (Primary Dx); DYSTHYMIC DISORDER; ANXIETY STATE NOS; CERVICALGIA Social History Tobacco Use Types Packs/Day Years Used Date Smoking Tobacco: Never Assessed Comments Unknown Sex and Gender Information Value Date Recorded Sex Assigned at Not on file Legal Sex Female 3:40 AM ETCHER ENAMELING Gender Identity Not on file Sexual Orientation Not on file documented as of this encounter Plan of Treatment Not on file documented as of this encounter Visit Diagnoses Diagnosis Lumbago- Primary Dysthymic disorder Anxiety state, unspecified Cervicalgia documented in this encounter Additional Health Concerns Infection Onset Date Last Indicated Resolved Time R/O COVID-19 01/31/2020 01/31/2020 02/02/2020 10:3 2 AM CDT documented as of this encounter Care Teams Painter Rough Relationship Specialty Start Date End Date Areli Gurrola MD [address] [place] [address] PCP - General Specialist 08/12/19 documented as of this encounter
--- OUTSIDE RECORDS SUMMARY | 2024-10-04 21:19 | XMS_ITS | Encounter Summary ---
Author Organization [facility] Address [address] [place] [address] Care Team Providers Care Applied Researcher Name Role Phone Areli Gurrola MD Primary Care Provider Encounter Details Date Type Department Care Team (Late st Contact Info) Description 04/14/2002 Outpatient Historical [facility] [address] [place] [address] Miguelangel Mas, NO ADDRESS ON FILE SPRAIN OF ANKLE NOS (Primary Dx) Social History Tobacco Use Types Packs/Day Years Used Date Smoking Tobacco: Never Assessed Comments Unknown Sex and Gender Information Value Date Recorded Sex Assigned at Not on file Legal Sex Female 3:40 AM MULTIMEDIA DEVELOPER Gender Identity Not on file Sexual Orientation Not on file documented as of this encounter Plan of Treatment Not on file documented as of this encounter Visit Diagnoses Diagnosis Sprain of ankle, unspecified site- Primary documented in this encounter Additional Health Concerns Infection Onset Date Last Indicated Resolved Time R/O COVID-19 01/31/2020 01/31/2020 02/02/2020 10:3 2 AM CDT documented as of this encounter Care Teams Applied Researcher Relationship Specialty Start Date End Date Areli Gurrola MD [address] [facility] [address] PCP - General Specialist 08/12/19 documented as of this encounter
--- OUTSIDE RECORDS SUMMARY | 2024-10-04 21:19 | XMS_ITS | Encounter Summary ---
Author Organization [facility] Address [address] [place] [address] Care Team Providers Care Church Supervisor Name Role Phone Areli Gurrola MD Primary Care Provider Encounter Details Date Type Department Care Team (Late st Contact Info) Description 04/11/1999 Outpatient Historical [facility] Social History Tobacco Use Types Packs/Day Years Used Date Smoking Tobacco: Never Assessed Comments Unknown Sex and Gender Information Value Date Recorded Sex Assigned at Not on file Legal Sex Female 3:40 AM MOBILE UNIT ASSISTANT Gender Identity Not on file Sexual Orientation Not on file documented as of this encounter Plan of Treatment Not on file documented as of this encounter Visit Diagnoses Not on filedocumented in this encounter Additional Health Concerns Infection Onset Date Last Indicated Resolved Time R/O COVID-19 01/31/2020 01/31/2020 02/02/2020 10:3 2 AM CDT documented as of this encounter Care Teams Church Supervisor Relationship Specialty Start Date End Date Areli Gurrola MD [address] [place] [address] PCP - General Specialist 08/12/19 documented as of this encounter
--- OUTSIDE RECORDS SUMMARY | 2024-10-04 21:19 | XMS_ITS | Encounter Summary ---
Author Organization [facility] Address [address] [place] [address] Care Team Providers Care Associate Publisher Name Role Phone Areli Gurrola MD Primary Care Provider Encounter Details Date Type Department Care Team (Latest Contact Info) Description 10/20/2002 Outpatient Historical [facility] [address] [place] [address] [place] [address] Gordon Cabral MD NO ADDRESS ON FILE PREOP EXAM OTHER SPECIFIED (Primary Dx) Social History Tobacco Use Types Packs/Day Years Used Date Smoking Tobacco: Never Assessed Comments Unknown Sex and Gender Information Value Date Recorded Sex Assigned at Not on file Legal Sex Female 3:40 AM DIESEL ENGINEER Gender Identity Not on file Sexual [...] documented as of this encounter Care Teams Associate Publisher Relationship Specialty Start Date End Date Areli Gurrola MD [address] [place] [address] PCP - General Specialist 08/12/19 documented as of this encounter
--- OUTSIDE RECORDS SUMMARY | 2024-10-04 21:19 | XMS_ITS | Encounter Summary ---
Author Organization [facility] Address [address] [place] [address] Care Team Providers Care Reeling And Tubing Machine Operator Name Role Phone Areli Gurrola MD Primary Care Provider Encounter Details Date Type Department Care Team (Latest Contact Info) Description 09/12/2005 Outpatient Historical [facility] [address] [place] [address] Trell Maria Jr., MD [address] [place] [address] Anxiety State, Unspecified (Primary Dx) Social History Tobacco Use Types Packs/Day Years Used Date Smoking Tobacco: Never Assessed Comments Unknown Sex and Gender Information Value Date Recorded Sex Assigned at Not on file Legal Sex Female 3:40 AM 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 SUPERVISOR Gender Identity Not on file Sexual Orientation Not on file documented as of this encounter Plan of Treatment Not on file documented as of this encounter Visit Diagnoses Diagnosis Anxiety state, unspecified- Primary documented in this encounter Additional Health Concerns Infection Onset Date Last Indicated Resolved Time R/O COVID-19 01/31/2020 01/31/2020 02/02/2020 10:3 2 AM CDT documented as of this encounter Care Teams Reeling And Tubing Machine Operator Relationship Specialty Start Date End Date Areli Gurrola MD [address] [place] [address] PCP - General Specialist 08/12/19 documented as of this encounter
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
--- OUTSIDE RECORDS SUMMARY | 2024-10-04 21:19 | XMS_ITS | Encounter Summary ---
Author Organization [facility] Address [address] [place] [address] Care Team Providers Care Keno Attendant Name Role Phone Areli Gurrola MD Primary Care Provider Encounter Details Date Type Department Care Team (Latest Contact Info) Description 03/09/1999 Outpatient [facility] [address] [place] [address] Alum[place], Gibran Lynn MD [address] [place] [address] Sprain and strain of unspecified site of shoulder and upper arm (Primary Dx); Backache, unspecified Social History Tobacco Use Types Packs/Day Years Used Date Smoking Tobacco: Never Assessed Comments Unknown Sex and Gender Information Value Date Recorded Sex Assigned at Not on file Legal Sex Female 3:40 AM TAR HEATER OPERATOR Gender Identity Not on file Sexual Orientation Not on file documented as of this encounter Plan of Treatment Not on file documented as of this encounter Visit Diagnoses Diagnosis Sprain and strain of unspecified site of shoulder and upper arm- Primary Backache, unspecified documented in this encounter Additional Health Concerns Infection Onset Date Last Indicated Resolved Time R/O COVID-19 01/31/2020 01/31/2020 02/02/2020 10:3 2 AM CDT documented as of this encounter Care Teams Keno Attendant Relationship Specialty Start Date End Date Areli Gurrola MD [address] [place] [address] PCP - General Specialist 08/12/19 documented as of this encounter
--- OUTSIDE RECORDS SUMMARY | 2024-10-04 21:19 | XMS_ITS | Encounter Summary ---
Author Organization [facility] Address [address] [place] [address] Care Team Providers Care Motion Picture Camera Operator Name Role Phone Areli Gurrola MD Primary Care Provider Encounter Details Date Type Department Care Team (Latest Contact Info) Description 10/11/[address] [facility] [address] [place] [address] Trell York MD [address] [place] [phone] Dysthymic Disorder (Primary Dx); Lumbago Social History Tobacco Use Types Packs/Day Years Used Date Smoking Tobacco: Never Assessed Comments Unknown Sex and Gender Information Value Date Recorded Sex Assigned at Not on file Legal Sex Female 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 MARKETING INTERN Gender Identity Not on file Sexual Orientation Not on file documented as of this encounter Plan of Treatment Not on file documented as of this encounter Visit Diagnoses Diagnosis Dysthymic disorder- Primary Lumbago documented in this encounter Additional Health Concerns Infection Onset Date Last Indicated Resolved Time R/O COVID-19 01/31/2020 01/31/2020 02/02/2020 10:3 2 AM CDT documented as of this encounter Care Teams Motion Picture Camera Operator Relationship Specialty Start Date End Date Areli Gurrola MD [address] [facility] [place] [address] PCP - General Specialist 08/12/19 documented as of this encounter
--- OUTSIDE RECORDS SUMMARY | 2024-10-04 21:19 | XMS_ITS | Encounter Summary ---
Author Organization [facility] Address [address] [place] [address] Care Team Providers Care Structural Drafter Name Role Phone Areli Gurrola MD Primary Care Provider Encounter Details Date Type Department Care Team (Latest Contact Info) Description 07/07/2004 Outpatient Historical [facility] [place] [address] [place] [address] Trell York MD [address] [place] [phone] CERVICAL DISC DISPLACMNT (Primary Dx) Social History Tobacco Use Types Packs/Day Years Used Date Smoking Tobacco: Never Assessed Comments Unknown Sex and Gender Information Value Date Recorded Sex Assigned at Not on file Legal Sex Female 3:40 AM PASTEURIZER Gender Identity Not on file Sexual Orientation Not on file documented as of this encounter Plan of Treatment Not on file documented as of this encounter Visit Diagnoses Diagnosis Displacement of cervical intervertebral disc without myelopathy- Primary documented in this encounter Additional Health Concerns Infection Onset Date Last Indicated Resolved Time R/O COVID-19 01/31/2020 01/31/2020 02/02/2020 10:3 2 AM CDT documented as of this encounter Care Teams Structural Drafter Relationship Specialty Start Date End Date Areli Gurrola MD [address] [facility] [place] [address] PCP - General Specialist 08/12/19 documented as of this encounter
--- OUTSIDE RECORDS SUMMARY | 2024-10-04 21:19 | XMS_ITS | Encounter Summary ---
Author Organization [facility] Address [address] [place] [address] Care Team Providers Care Charge Auditor Name Role Phone Areli Gurrola MD Primary Care Provider Encounter Details Date Type Department Care Team (Late st Contact Info) Description 05/14/2003 Outpatient Historical [facility] [address] [place] [address] Roman Law, DO [address] [place] [phone] ACUTE SINUSITIS NOS (Primary Dx) Social History Tobacco Use Types Packs/Day Years Used Date Smoking Tobacco: Never Assessed Comments Unknown Sex and Gender Information Value Date Recorded Sex Assigned at Not on file Legal Sex Female 3:40 AM BEAD WRAPPER Gender Identity Not on file Sexual Orientation Not on file documented as of this encounter Plan of Treatment Not on file documented as of this encounter Visit Diagnoses Diagnosis Acute sinusitis, unspecified- Primary documented in this encounter Additional Health Concerns Infection Onset Date Last Indicated Resolved Time R/O COVID-19 01/31/2020 01/31/2020 02/02/2020 10:3 2 AM CDT documented as of this encounter Care Teams Charge Auditor Relationship Specialty Start Date End Date Areli Gurrola MD [address] [place] [address] PCP - General Specialist 08/12/19 documented as of this encounter
--- OUTSIDE RECORDS SUMMARY | 2024-10-04 21:19 | XMS_ITS | Encounter Summary ---
Author Organization [facility] Address [address] [place] [address] Care Team Providers Care Senior Technical Support Engineer Name Role Phone Areli Gurrola MD Primary Care Provider Encounter Details Date Type Department Care Team (Latest Contact Info) Description 05/11/[address] [facility] [address] [place] [address] Trell York MD [address] [place] [phone] CERVICALGIA (Primary Dx) Social History Tobacco Use Types Packs/Day Years Used Date Smoking Tobacco: Never Assessed Comments Unknown Sex and Gender Information Value Date Recorded Sex Assigned at Not on file Legal Sex Female 3:40 AM GUEST SERVICES AMBASSADOR Gender Identity Not on file Sexual Orientation Not on file documented as of this encounter Plan of Treatment Not on file documented as of this encounter Visit Diagnoses Diagnosis Cervicalgia- Primary documented in this encounter Additional Health Concerns Infection Onset Date Last Indicated Resolved Time R/O COVID-19 01/31/2020 01/31/2020 02/02/2020 10:3 2 AM CDT documented as of this encounter Care Teams Senior Technical Support Engineer Relationship Specialty Start Date End Date Areli Gurrola MD [address] [facility] [place] [address] PCP - General Specialist 08/12/19 documented as of this encounter
--- OUTSIDE RECORDS SUMMARY | 2024-10-04 21:19 | XMS_ITS | Encounter Summary ---
Author Organization [facility] Address [address] [place] [address] Care Team Providers Care Unit Control Worker Name Role Phone Areli Gurrola MD Primary Care Provider Encounter Details Date Type Department Care Team (Late st Contact Info) Description 10/30/2002 Emergency [facility] Emergency [facility] [address] [place] [address] Tomás Jade MD NO ADDRESS ON FILE FEMALE GENITAL SYMPTOMS NOS (Primary Dx) Social History Tobacco Use Types Packs/Day Years Used Date Smoking Tobacco: Never Assessed Comments Unknown Sex and Gender Information Value Date Recorded Sex Assigned at Not on file Legal Sex Female 3:40 AM FORECLOSURE SPECIALIST Gender Identity Not on file Sexual [...] documented as of this encounter Care Teams Unit Control Worker Relationship Specialty Start Date End Date Areli Gurrola MD [address] [place] [address] PCP - General Specialist 08/12/19 documented as of this encounter
--- OUTSIDE RECORDS SUMMARY | 2024-10-04 21:19 | XMS_ITS | Encounter Summary ---
Author Organization [facility] Address [address] [place] [address] Care Team Providers Care Pediatric Oncology Nurse Name Role Phone Areli Gurrola MD Primary Care Provider Encounter Details Date Type Department Care Team (Latest Contact Info) Description 04/07/2002 Outpatient Historical [facility] [address] [place] [address] Trell York MD [address] [place] [phone] URTICARIA NOS (Primary Dx) Social History Tobacco Use Types Packs/Day Years Used Date Smoking Tobacco: Never Assessed Comments Unknown Sex and Gender Information Value Date Recorded Sex Assigned at Not on file Legal Sex Female 3:40 AM CHIPPER OPERATOR Gender Identity Not on file Sexual Orientation Not on file documented as of this encounter Plan of Treatment Not on file documented as of this encounter Visit Diagnoses Diagnosis Urticaria, unspecified- Primary documented in this encounter Additional Health Concerns Infection Onset Date Last Indicated Resolved Time R/O COVID-19 01/31/2020 01/31/2020 02/02/2020 10:3 2 AM CDT documented as of this encounter Care Teams Pediatric Oncology Nurse Relationship Specialty Start Date End Date Areli Gurrola MD [address] [facility] [place] [address] PCP - General Specialist 08/12/19 documented as of this encounter
--- OUTSIDE RECORDS SUMMARY | 2024-10-04 21:19 | XMS_ITS | Encounter Summary ---
Author Organization [facility] Address [address] [place] [address] Care Team Providers Care Academic Coach Name Role Phone Areli Gurrola MD Primary Care Provider Encounter Details Date Type Department Care Team (Latest Contact Info) Description 01/09/[address] [facility] [address] [place] [address] Trell York MD [address] [place] [phone] HEADACHE (Primary Dx); CERVICALGIA Social History Tobacco Use Types Packs/Day Years Used Date Smoking Tobacco: Never Assessed Comments Unknown Sex and Gender Information Value Date Recorded Sex Assigned at Not on file Legal Sex Female 3:40 AM STATIONARY STEAM ENGINEER Gender Identity Not on file Sexual Orientation Not on file documented as of this encounter Plan of Treatment Not on file documented as of this encounter Visit Diagnoses Diagnosis Headache(784.0)- Primary Headache Cervicalgia documented in this encounter Additional Health Concerns Infection Onset Date Last Indicated Resolved Time R/O COVID-19 01/31/2020 01/31/2020 02/02/2020 10:3 2 AM CDT documented as of this encounter Care Teams Academic Coach Relationship Specialty Start Date End Date Areli Gurrola MD [address] [place] [address] PCP - General Specialist 08/12/19 documented as of this encounter
--- OUTSIDE RECORDS SUMMARY | 2024-10-04 21:19 | XMS_ITS | Encounter Summary ---
Author Organization [facility] Address [address] [place] [address] Care Team Providers Care Boiler Water Tester Name Role Phone Areli Gurrola MD Primary Care Provider Encounter Details Date Type Department Care Team (Latest Contact Info) Description 10/31/2002 Outpatient Historical [facility] [place] [address] [place] [address] Gordon Cabral MD NO ADDRESS ON FILE SURGERY FOLLOWUP, UNSPEC (Primary Dx) Social History Tobacco Use Types Packs/Day Years Used Date Smoking Tobacco: Never Assessed Comments Unknown Sex and Gender Information Value Date Recorded Sex Assigned at Not on file Legal Sex Female 3:40 AM EPITAXIAL REACTOR TECHNICIAN Gender Identity Not on file Sexual Orientation [...] documented as of this encounter Care Teams Boiler Water Tester Relationship Specialty Start Date End Date Areli Gurrola MD [address] [facility] [place] [address] PCP - General Specialist 08/12/19 documented as of this encounter
--- OUTSIDE RECORDS SUMMARY | 2024-10-04 21:19 | XMS_ITS | Encounter Summary ---
Author Organization [facility] Address [address] [place] [address] Care Team Providers Care Handtools Repairer Name Role Phone Areli Gurrola MD Primary Care Provider Encounter Details Date Type Department Care Team (Latest Contact Info) Description 07/06/2004 Outpatient [facility] [address] [place] [address] Trell York MD [address] [place] [phone] DYSTHYMIC DISORDER (Primary Dx); BACKACHE NOS; CERVICALGIA Social History Tobacco Use Types Packs/Day Years Used Date Smoking Tobacco: Never Assessed Comments Unknown Sex and Gender Information Value Date Recorded Sex Assigned at Not on file Legal Sex Female 3:40 AM BILL PEDDLER Gender Identity Not on file Sexual Orientation Not on file documented as of this encounter Plan of Treatment Not on file documented as of this encounter Visit Diagnoses Diagnosis Dysthymic disorder- Primary Backache, unspecified Cervicalgia documented in this encounter Additional Health Concerns Infection Onset Date Last Indicated Resolved Time R/O COVID-19 01/31/2020 01/31/2020 02/02/2020 10:3 2 AM CDT documented as of this encounter Care Teams Handtools Repairer Relationship Specialty Start Date End Date Areli Gurrola MD [address] [place] [address] PCP - General Specialist 08/12/19 documented as of this encounter
--- OUTSIDE RECORDS SUMMARY | 2024-10-04 21:19 | XMS_ITS | Encounter Summary ---
Author Organization [facility] Address [address] [place] [address] Care Team Providers Care Flight/Transport Nurse Name Role Phone Areli Gurrola MD Primary Care Provider Encounter Details Date Type Department Care Team (Late st Contact Info) Description 06/27/2001 Outpatient Historical [facility] Gen Spec Surg [address] [address] Renan Martinez MD [address] [place] [phone] CHOLELITHIASIS NOS (Primary Dx); SURGERY FOLLOWUP, UNSPEC Social History Tobacco Use Types Packs/Day Years Used Date Smoking Tobacco: Never Assessed Comments Unknown Sex and Gender Information Value Date Recorded Sex Assigned at Not on file Legal Sex Female 3:40 AM WASTE OIL PUMPER Gender Identity Not on file Sexual Orientation Not on file documented as of this encounter Plan of Treatment Not on file documented as of this encounter Visit Diagnoses Diagnosis Calculus of gallbladder without mention of cholecystitis or obstruction- Primary Follow-up examination, following unspecified surgery documented in this encounter Additional Health Concerns Infection Onset Date Last Indicated Resolved Time R/O COVID-19 01/31/2020 01/31/2020 02/02/2020 10:3 2 AM CDT documented as of this encounter Care Teams Flight/Transport Nurse Relationship Specialty Start Date End Date Areli Gurrola MD [address] [facility] [place] [address] PCP - General Specialist 08/12/19 documented as of this encounter
--- OUTSIDE RECORDS SUMMARY | 2024-10-04 21:19 | XMS_ITS | Encounter Summary ---
Author Organization [facility] Address [address] [place] [address] Care Team Providers Care Hand Hardener Name Role Phone Areli Gurrola MD Primary Care Provider Encounter Details Date Type Department Care Team (Latest Contact Info) Description 06/04/1998 Outpatient Historical [facility] PLASTIC SURGERY Charli Perez MD NO ADDRESS ON FILE Open wound of forehead (Primary Dx) Social History Tobacco Use Types Packs/Day Years Used Date Smoking Tobacco: Never Assessed Comments Unknown Sex and Gender Information Value Date Recorded Sex Assigned at Not on file Legal Sex Female 3:40 AM CONDUCTOR PULLMAN Gender Identity Not on file Sexual Orientation Not on file documented as of this encounter Plan of Treatment Not on file documented as of this encounter Visit Diagnoses Diagnosis Open wound of forehead- Primary Open wound of forehead, without mention of complication documented in this encounter Additional Health Concerns Infection Onset Date Last Indicated Resolved Time R/O COVID-19 01/31/2020 01/31/2020 02/02/2020 10:3 2 AM CDT documented as of this encounter Care Teams Hand Hardener Relationship Specialty Start Date End Date Areli Gurrola MD [address] [place] [address] PCP - General Specialist 08/12/19 documented as of this encounter
--- OUTSIDE RECORDS SUMMARY | 2024-10-04 21:19 | XMS_ITS | Encounter Summary ---
Author Organization [facility] Address [address] [place] [address] Care Team Providers Care Machine I Cutter Name Role Phone Areli Gurrola MD Primary Care Provider Encounter Details Date Type Department Care Team (Latest Contact Info) Description 10/03/2002 [facility] [address] [place] [address] Gordon Cabral MD NO ADDRESS ON FILE METRORRHAGIA (Primary Dx) Social History Tobacco Use Types Packs/Day Years Used Date Smoking Tobacco: Never Assessed Comments Unknown Sex and Gender Information Value Date Recorded Sex Assigned at Not on file Legal Sex Female 3:40 AM VENETIAN BLIND MAKER Gender Identity Not on file Sexual Orientation Not on file documented as of this encounter Plan of Treatment Not on file documented as of this encounter Visit Diagnoses Diagnosis Metrorrhagia- Primary documented in this encounter Additional Health Concerns Infection Onset Date Last Indicated Resolved Time R/O COVID-19 01/31/2020 01/31/2020 02/02/2020 10:3 2 AM CDT documented as of this encounter Care Teams Machine I Cutter Relationship Specialty Start Date End Date Areli Gurrola MD [address] [place] [address] PCP - General Specialist 08/12/19 documented as of this encounter
--- OUTSIDE RECORDS SUMMARY | 2024-10-04 21:19 | XMS_ITS | Encounter Summary ---
Author Organization [facility] Address [address] [place] [address] Care Team Providers Care Scada Operator Name Role Phone Areli Gurrola MD Primary Care Provider Encounter Details Date Type Department Care Team (Latest Contact Info) Description 09/14/2004 Outpatient Historical [facility] [address] [place] [address] Trell York MD [address] [place] [phone] DYSTHYMIC DISORDER (Primary Dx); CERVICALGIA; LUMBAGO Social History Tobacco Use Types Packs/Day Years Used Date Smoking Tobacco: Never Assessed Comments Unknown Sex and Gender Information Value Date Recorded Sex Assigned at Not on file Legal Sex Female 3:40 AM SULFIDE HEAD OPERATOR Gender Identity Not on file Sexual Orientation Not on file documented as of this encounter Plan of Treatment Not on file documented as of this encounter Visit Diagnoses Diagnosis Dysthymic disorder- Primary Cervicalgia Lumbago documented in this encounter Additional Health Concerns Infection Onset Date Last Indicated Resolved Time R/O COVID-19 01/31/2020 01/31/2020 02/02/2020 10:3 2 AM CDT documented as of this encounter Care Teams Scada Operator Relationship Specialty Start Date End Date Areli Gurrola MD [address] [facility] [place] [address] PCP - General Specialist 08/12/19 documented as of this encounter
--- OUTSIDE RECORDS SUMMARY | 2024-10-04 21:19 | XMS_ITS | Encounter Summary ---
Author Organization [facility] Address [address] [place] [address] Care Team Providers Care Line Crew Supervisor Name Role Phone Areli Gurrola MD Primary Care Provider Encounter Details Date Type Department Care Team (Latest Contact Info) Description 06/07/1998 Outpatient Historical [facility] Charli Perez MD NO ADDRESS ON FILE Open wound of forehead (Primary Dx) Social History Tobacco Use Types Packs/Day Years Used Date Smoking Tobacco: Never Assessed Comments Unknown Sex and Gender Information Value Date Recorded Sex Assigned at Not on file Legal Sex Female 3:40 AM SCREENER AND BLENDER OPERATOR Gender Identity Not on file Sexual [...] documented as of this encounter Care Teams Line Crew Supervisor Relationship Specialty Start Date End Date Areli Gurrola MD [address] [place] [address] PCP - General Specialist 08/12/19 documented as of this encounter
--- OUTSIDE RECORDS SUMMARY | 2024-10-04 21:19 | XMS_ITS | Clinical Summary ---
Author Organization [facility] Address [address] [place] [address] Care Team Providers Care Supervisor Wrapping Room Name Role Phone Areli Gurrola MD Primary Care Provider Allergies Active Allergy Reactions Criticality Noted Date Comments Acetaminophen Other (See Comments) 03/31/2019 Due to liver damage Aspirin Other (See Comments) 09/29/2015 GI bleed Cephalexin Other (See Comments) 09/29/2015 GI bleed Ibuprofen Other (See Comments) 09/29/2015 GI bleed Metoclopramide Other (See Comments) 03/15/2020 Tendons seize up. Nsaids (Non-Steroidal Anti-Inflammatory Drug) Unknown 07/02/2019 cant take per my doctor Prednisone Other (See Comments) 05/14/2024 It made me sick. I could not function. Sulfa (Sulfonamide Antibiotics) Rash Low 05/30/2018 Sumatriptan Headache Low 09/29/2015 Medications busPIRone (BUSPAR) 5 mg tablet Take 5 mg by mouth 3 times daily. Active ziprasidone (GEODON) 40 mg Capsule Take 40 mg by mouth daily. Active tiZANidine (ZANAFLEX) 4 mg Capsule Take 4 mg by mouth every 8 hours as needed for Spasm. Active Active Problems Problem Noted Date Diagnosed Date Chronic anemia 05/14/2024 Hx of multiple sclerosis 05/14/2024 History of lower GI bleeding 05/14/2024 Cigarette dependence 10/20/2015 Encounters Date Type Department Care Team Description 09/12/2024 1:26 AM CDT - 09/12/2024 2:20 AM CDT Emergency [facility] Emergency Medicine [address] [place] [address] Suha Stafford MD Encounter for examination following a fall (Primary Dx); Facial laceration, initial encounter Discharge Disposition: Home or Self Care 09/12/2024 Travel from Last 3 Months Immunizations Immunization Administration Dates Next Due (ADACEL/BOOSTRIX)(10 YR UP) TDAP VACCINE, 0.5ML, IM 03/15/2020 Family History Medical History Relation Name Comments Colon Cancer Maternal Grandmother Relation Name Status Comments Maternal Grandmother Social History Tobacco Use Types Packs/Day Years Used Date Smoking Tobacco: Every Day Cigarettes Smokeless Tobacco: Never Tobacco Cessation:Ready to Q uit: Not Asked; Counseling Given: Not Answered Comments:4 cigarettes daily Alcohol Use Standard Drinks/Week Comments Yes 21 (1 standard drink = 0.6 oz pu re alcohol) about a pint a day Feeling Safe Answer Date Recorded Are you in a relationship wi th someone who hurts you emotionally and/or physically? No 09/12/2024 Comments No Sex and Gender Information Value Date Recorded Sex Assigned at Not on file Legal Sex Female 6:21 AM MANAGER VALUATION Gender Identity Not on file Sexual Orientation Not on file Last Filed Vital Signs Vital Sign Reading Time Taken Comments Blood Pressure 153/80 09/12/2024 1:51 AM CDT Pulse 58 05/14/2024 6:30 PM MANAGER VALUATION Temperature 36.9 C (98.4 F) 09/12/2024 1:51 AM CDT Respiratory Rate 18 09/12/2024 1:51 AM CDT Oxygen Saturation 99% 09/12/2024 1:51 AM CDT Inhaled Oxygen Concentration - - Weight 70.3 kg (155 lb) 09/12/2024 1:51 AM CDT Height 149.9 cm (4' 11 ) 09/12/2024 1:51 AM CDT Body Mass Index 31.31 09/12/2024 1:51 AM CDT Plan of Treatment Health Maintenance Due Date Last Done Comments HEPATITIS B VACCINES (1 of 3 - 19+ 3-dose series) 1986 HPV/Cotest (21-29) 1988 CERVICAL CANCER SCREENING 1997 HPV/Cotest (30-65) 1997 PAP SMEAR 1997 BREAST CANCER SCREENING 2007 FIT-DNA Q 3 years 2012 FIT/FOBT Q 1 year 2012 Flex Sig/CT Colonography Q 5 years 2012 ZOSTER VACCINE (1 of 2) 2017 Pre-Diabetes and Diabetes Screening 01/20/201801/20 INFLUENZA VACCINE (#1) 2023 COLORECTAL SCREENING 02/16/2026 02/17/2016 Colorectal Cancer Screening 02/16/2026 DTAP/TDAP/TD VACCINES (2 - Td or Tdap) 03/15/2030, 10/13/2006 Procedures Procedure Name Priority Date/Time Associated Diagnosis Comments LACERATION REPAIR Routine 09/12/2024 2:1 8 AM CDT HEMOGLOBIN A1C Routine 01/20/2015 from Last 3 Months or Most Recently Relevant to Health Maintenance Results * Laceration Repair (09/12/2024 2:18 AM CDT) Narrative Suha Stafford MD - 09/12/2024 2:18 AM CDT Suha Stafford MD 09/12/2024 2:21 AM Laceration Repair Date/Time: 09/12/2024 2:18 AM Performed by: Suha Stafford MD Authorized by: Suha Stafford MD Consent: Consent obtained: Verbal Consent given by: Patient Risks discussed: Infection, pain, poor cosmetic result, poor wound healing and need for additional repair Alternatives discussed: No treatment [place] protocol: Procedure explained and questions answered to patient or proxy's satisfaction: yes Immediately prior to procedure, a time out was called: yes Patient identity confirmed: Verbally with patient Anesthesia: Anesthesia method: None Pre-procedure details: Preparation: Patient was prepped and draped in usual sterile fashion Exploration: Hemostasis achieved with: Direct pressure Wound exploration: wound explored through full range of motion Treatment: Area cleansed with: Saline Amount of cleaning: Standard Irrigation solution: Sterile saline Visualized foreign bodies/material removed: no Skin repair: Repair method: Tissue adhesive Approximation: Approximation: Close Repair type: Repair type: Simple Post-procedure details: Procedure completion: Tolerated well, no immediate complications Suha Stafford MD PROCEDURE/MINOR SURGICAL ORD ERABLES Final Result * HEMOGLOBIN A1C (01/20/2015) SHELL RECORD 708 EXTERNAL LAB HEMOGLOBIN A1C EXTERNAL LAB HEMOGLOBIN A1C EXTERNAL LAB GLUCOSE, MEAN BLOOD EXTERNAL LAB ABSTRACTED HGB A1C 6.4 EXTERNAL LAB Blood 01/20/2015 Narrative EXTERNAL LAB - 01/20/2015 12:00 AM CDT This order was created through External Result Entry us Abstract Spg Provider CHEMISTRY ORDERABLES Final Result EXTERNAL LAB from Last 3 Months or Most Recently Relevant to Health Maintenance Insurance [facility] Care Teams Supervisor Wrapping Room Relationship Specialty Start Date End Date Areli Gurrola MD [address] [place] [address] PCP - General Specialist 08/12/19
--- OUTSIDE RECORDS SUMMARY | 2024-10-04 21:19 | XMS_ITS | Encounter Summary ---
Author Organization [facility] Address [address] [place] [address] Care Team Providers Care Bead Wire Taper Name Role Phone Areli Gurrola MD Primary Care Provider Encounter Details Date Type Department Care Team (Latest Contact Info) Description 07/09/[address] 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 Gender Identity Not on file Sexual Orientation Not on file documented as of this encounter Plan of Treatment Not on file documented as of this encounter Visit Diagnoses Diagnosis Other malaise and fatigue- Primary Cervicalgia documented in this encounter Additional Health Concerns Infection Onset Date Last Indicated Resolved Time R/O COVID-19 01/31/2020 01/31/2020 02/02/2020 10:3 2 AM CDT documented as of this encounter Care Teams Bead Wire Taper Relationship Specialty Start Date End Date Areli Gurrola MD [address] [facility] [place] [phone] PCP - General Specialist 08/12/19 documented as of this encounter
--- OUTSIDE RECORDS SUMMARY | 2024-10-04 21:19 | XMS_ITS | Encounter Summary ---
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
--- OUTSIDE RECORDS SUMMARY | 2024-10-04 21:19 | XMS_ITS | Encounter Summary ---
Author Organization [facility] Address [address] [place] [address] Care Team Providers Care Dragline Operator Helper Name Role Phone Areli Gurrola MD Primary Care Provider Encounter Details Date Type Department Care Team (Latest Contact Info) Description 07/16/2001 Outpatient Historical [facility] [address] [place] [address] Trell York MD [address] [place] [phone] SWELLING OF LIMB (Primary Dx) Social History Tobacco Use Types Packs/Day Years Used Date Smoking Tobacco: Never Assessed Comments Unknown Sex and Gender Information Value Date Recorded Sex Assigned at Not on file 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 Gender Identity Not on file Sexual Orientation Not on file documented as of this encounter Plan of Treatment Not on file documented as of this encounter Visit Diagnoses Diagnosis Swelling of limb- Primary documented in this encounter Additional Health Concerns Infection Onset Date Last Indicated Resolved Time R/O COVID-19 01/31/2020 01/31/2020 02/02/2020 10:3 2 AM CDT documented as of this encounter Care Teams Dragline Operator Helper Relationship Specialty Start Date End Date Areli Gurrola MD [address] [facility] [place] [address] PCP - General Specialist 08/12/19 documented as of this encounter
--- OUTSIDE RECORDS SUMMARY | 2024-10-04 21:19 | XMS_ITS | Encounter Summary ---
Author Organization [facility] Address [address] [place] [address] Care Team Providers Care Warehouse Coordinator Name Role Phone Areli Gurrola MD Primary Care Provider Encounter Details Date Type Department Care Team (Latest Contact Info) Description 09/09/2003 Outpatient Historical [facility] [address] [place] [address] Trell York MD [address] [place] [phone] CERVICALGIA (Primary Dx) Social History Tobacco Use Types Packs/Day Years Used Date Smoking Tobacco: Never Assessed Comments Unknown Sex and Gender Information Value Date Recorded Sex Assigned at Not on file 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 Gender Identity Not on file Sexual Orientation Not on file documented as of this encounter Plan of Treatment Not on file documented as of this encounter Visit Diagnoses Diagnosis Cervicalgia- Primary documented in this encounter Additional Health Concerns Infection Onset Date Last Indicated Resolved Time R/O COVID-19 01/31/2020 01/31/2020 02/02/2020 10:3 2 AM CDT documented as of this encounter Care Teams Warehouse Coordinator Relationship Specialty Start Date End Date Areli Gurrola MD [address] [facility] [place] [address] PCP - General Specialist 08/12/19 documented as of this encounter
[2024-10-04 21:20] VITALS: BP 155/86; PULSE 100; RESP 18; TEMP 36.8; O2SAT 99; BMI 28.6
--- OUTSIDE RECORDS SUMMARY | 2024-10-04 21:20 | XMS_ITS | Encounter Summary ---
Author Organization [facility] Address [address] [place] [address] Care Team Providers Care Telephone Station Installer Name Role Phone Areli Gurrola MD Primary Care Provider Encounter Details Date Type Department Care Team (Latest Contact Info) Description 03/26/2002 Outpatient Historical [facility] [address] [place] [address] Trell York MD [address] [place] [phone] CERVICALGIA (Primary Dx); ABDOMINAL PAIN UNSPEC SITE Social History Tobacco Use Types Packs/Day Years Used Date Smoking Tobacco: Never Assessed Comments Unknown Sex and Gender Information Value Date Recorded Sex Assigned at Not on file Legal Sex Female 3:[address] Gender Identity Not on file Sexual Orientation Not on file documented as of this encounter Plan of Treatment Not on file documented as of this encounter Visit Diagnoses Diagnosis Cervicalgia- Primary Abdominal pain, unspecified site documented in this encounter Additional Health Concerns Infection Onset Date Last Indicated Resolved Time R/O COVID-19 01/31/2020 01/31/2020 02/02/2020 10:3 2 AM CDT documented as of this encounter Care Teams Telephone Station Installer Relationship Specialty Start Date End Date Areli Gurrola MD [address] [facility] [place] [address] PCP - General Specialist 08/12/19 documented as of this encounter
--- OUTSIDE RECORDS SUMMARY | 2024-10-04 21:20 | XMS_ITS | Encounter Summary ---
Author Organization [facility] Address [address] [place] [address] Care Team Providers Care Touch Up Carver Name Role Phone Areli Gurrola MD Primary Care Provider Encounter Details Date Type Department Care Team (Latest Contact Info) Description 03/20/2002 Outpatient Historical [facility] [address] [place] [address] Trell York MD [address] [place] [phone] ESOPHAGITIS, UNSPECIFIED (Primary Dx); CERVICALGIA; UNSPEC CONSTIPATION Social History Tobacco Use Types Packs/Day Years Used Date Smoking Tobacco: Never Assessed Comments Unknown Sex and Gender Information Value Date Recorded Sex Assigned at Not on file 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 Gender Identity Not on file Sexual Orientation Not on file documented as of this encounter Plan of Treatment Not on file documented as of this encounter Visit Diagnoses Diagnosis Esophagitis, unspecified- Primary Cervicalgia Unspecified constipation documented in this encounter Additional Health Concerns Infection Onset Date Last Indicated Resolved Time R/O COVID-19 01/31/2020 01/31/2020 02/02/2020 10:3 2 AM CDT documented as of this encounter Care Teams Touch Up Carver Relationship Specialty Start Date End Date Areli Gurrola MD [address] [facility] [place] [address] PCP - General Specialist 08/12/19 documented as of this encounter
[2024-10-04 22:16] VITALS: BP 153/96; PULSE 89; RESP 18; O2SAT 100
--- NOTE | 2024-10-04 22:22 | XRR_ITS ---
PROCEDURE INFORMATION: Exam: XR Chest Exam date and time: 10/04/2024 10:31 PM Age: 59 years old Clinical indication: Shortness of breath; Prior surgery; Surgery date: 6+ months; Surgery type: Cervical fusion; Additional info: SOB TECHNIQUE: Imaging protocol: Radiologic exam of the chest. Views: 1 view. COMPARISON: CR XR chest 1V portable [id number] 06/22/2024 1:39 AM FINDINGS: Lungs: Clear, symmetrically inflated lungs. Pleural spaces: No pleural effusion. No pneumothorax. Heart/Mediastinum: Cardiac silhouette is normal in size for technique. Bones/joints: Cervical fusion hardware is partly visualized. No acute bony abnormality. XR/XR chest 1V portable [id number] IMPRESSION: No acute cardiopulmonary abnormality.
[2024-10-04] MEDS: ondansetron 2 mg/ML SDV 2 mL 4 MG IVP (22:45)
[2024-10-04 22:46] VITALS: RESP 22
[2024-10-04] MEDS: morphine 4 mg/mL SDV 1 mL IVP (22:46)
[2024-10-04 22:49] LABS: Basophils % 0.6 %; Eosinophils # 0.2 10^3/uL (0.0-0.8); Eosinophils % 2.4 %; Lymphocytes # 1.4 10^3/uL (0.8-4.8); Lymphocytes % 22.7 %; Mean Corpuscular HGB Conc 33.8 g/dL (30-55); Mean Corpuscular Hemoglobin 29.7 pg (27-33); Mean Corpuscular Volume 87.9 fl (85-98); Mean Platelet Volume 9.3 fL (7.4-10.4); Monocytes # 0.4 10^3/uL (0.2-0.9); Monocytes % 6.7 %; Neutrophils # 4.15 10^3/uL (1.8-7.7); Neutrophils % 67.4 %; Nucleated Red Blood Cells % 0 %; Platelet Count 99 10^3/cmm (157-399); Red Blood Count 3.64 10^6/uL (3.85-5.65); White Blood Count 6.16 10^3/uL (3.29-11.43)
[2024-10-04 23:20] LABS: Alanine Aminotransferase 33 U/L (0-33); Albumin Level 3.7 g/dL (3.5-5.2); Alkaline Phosphatase 195 U/L (35-105); Anion Gap 19.1 (5-19); Aspartate Amino Transferase 56 U/L (0-32); Blood Urea Nitrogen 10 mg/dL (6-20); C Reactive Protein 3.2 mg/L (0.0-4.9); Calcium 9.5 mg/dL (8.5-10.5); Carbon Dioxide 22 mmol/L (22-29); Chloride 105 mmol/L (98-107); Globulin 3.4 g/dL (1.3-4.6); Glomerular Filtration Rate 86.2 mL/min (90-130); Glucose 109 mg/dL (65-115); Magnesium 1.8 mg/dL (1.7-2.3); NT Pro B Type Natriuretic Pept 67 pg/mL (0-125); Osmolality Calculated 296 mOsm/kg (285-295); Potassium 3.1 mmol/L (3.5-5.1); Sodium 143 mmol/L (136-145); Total Bilirubin 2.3 mg/dL (0.15-1.2); Total Protein 7.1 g/dL (6.6-8.7)
--- NOTE | 2024-10-04 23:27 | ED_ITS ---
HPI - Extremity Problem 2 General: Chief complaint: Extremity Problem,Nontraumatic Stated complaint: legs swelling pain Time Seen by Provider: 10/04/24 21:55 History of Present Illness: 59-year-old female who tells me she has a history of low blood counts (pancytopenia), chronic liver disease, heart failure. She presents with pain and swelling to the bilateral legs. She has been working on her feet she says, which is worsened her symptoms. She complains of diffuse pain to the legs, with tightness at night, and cramping. She says pain is uncontrollable at home, with [id number] medications and massage. She is in tears describing her pain. She states that the bottom of her feet have been numb for quite some time. She says that she has a history of diabetes, but her last hemoglobin A1c was below 5, and she is not considered diabetic anymore. She states that despite this, she continues to have diffuse bilateral leg pain related to neuropathy. She tells me she has been referred to a Kar[facility] Dr. Regarding her liver. Related Data Home Medications ?Medication ?Instructions ?Recorded ?Confirmed albuterol sulfate 90 mcg/actuation 2 puff inhalation Q 4H PRN 04/04/24 09/25/24 aerosol inhaler Shortness Of Breath Or Wheez ing ziprasidone HCl 20 mg capsule 20 mg PO BID 07/23/24 fluoxetine 20 mg capsule mg PO 08/18/24 09/25/24 multivitamin with folic acid 400 tab PO 08/18/2409/25 mcg tablet (Tab-A-Boyd) buspirone 5 mg tablet 5 mg PO ONCE 09/11/24 tizanidine 4 mg capsule 4 mg PO Q8H PRN 09/11/24 Previous Rx's ?Medication ?Instructions ?Recorded naltrexone microspheres 380 mg 380 mg IM ONCE #1 ea intramuscular suspension,extended release (Vivitrol) hydroxyzine HCl 25 mg tablet 25 mg PO Q8H PRN anxiety #10 tabs 07/23/24 furosemide 20 mg tablet 20 mg PO QAM #30 tabs multivitamin 1 tab PO DAILY #30 tabs 08/31 potassium chloride 10 mEq 10 meq PO DAILY diuretic use #30 09/11/24 tablet,extended release (Klor-Con) tabs cephalexin 500 mg capsule 500 mg PO BID #10 caps 09/17 gabapentin 300 mg capsule 300 mg PO Q8H #30 caps 10/04 hydrocodone 5 mg-acetaminophen 325 1 tab PO Q8H PRN pa in #7 tabs 10/04/24 mg tablet Allergies Allergy/AdvReac Type Severity Reaction Status Date / Time venom-wasp Allergy Severe ALGY-Anaphy Verified 09/25/24 09:47 laxis Sulfa (Sulfonamide Allergy Intermediate Hives Verified 09/25/24 09:47 Antibiotics) aspirin Allergy Unknown Unknown Verified 09/25/24 09:47 NSAIDS (Non-Steroidal Allergy Unknown Unknown Verified 09/25/24 09:47 Anti-Inflamma sumatriptan (From Imitrex) Allergy Unknown Unknown Verified 09/25/24 09:47 ibuprofen (From NeoProfen Allergy UNKNOWN Verified 09/25/24 09:47 (ibuprofen lysn)(PF)) metoclopramide (From Reglan) Allergy ALGY-Joint Verified 09/25/24 09:47 Pain bupropion (From Wellbutrin) AdvReac Intermediate ALGY-Rash Verified 09/25/24 09:47 prednisone AdvReac Intermediate Heart rate Verified 09/25/24 09:47 was heavy. [place] sick. Cephalosporins AdvReac Unknown Unknown Verified 09/25/24 09:47 [facility] ED 2 PFSH: Medical History PTSD (post-traumatic stress disorder) Suicidal ideation Cannabis dependence, episodic use Major depressive disorder, recurrent, severe with psychotic symptoms Nicotine dependence due to vaping tobacco product Vaping nicotine Chronic post-traumatic stress disorder Alcohol use disorder, severe, dependence Psychiatric care Uncontrolled type 2 diabetes with neuropathy Sacroiliitis H/O Belkys-Valenzuela syndrome (~07/2019) EGD at [facility]. EGD 10/26 negative. Chronic back pain Congestive heart failure Diabetes mellitus MONTANO (nonalcoholic steatohepatitis) Borderline personality disorder Bilateral primary osteoarthritis of hip Surgical History History of hysterectomy History of esophagogastroduodenoscopy H/O colonoscopy H/O cervical spine surgery Family History Son Suicide September 2019 Other Cancer Hypertension Psychiatric illness Social History Smoking and tobacco/nicotine status: current every day tobacco/nicotine user cigarettes [ Other cigarette details: When vape breaks she returns to cigarettes] and e-cigarettes E-Cigarette Details: vaporizer device and with nicotine E-cig/vape details: 6000 puffs in each device, uses 3 per month Quit status (tobacco/nicotine): not considering quitting Second hand smoke exposure: Yes Alcohol intake: current Alcohol intake frequency: few times a month Alcohol type: hard liquor Substance/Drug Use: current Substance/Drug use frequency: daily Other substance/drug use details: medical card Adopted: No Caregiver/support person: Yes (cleans and runs errands) Lives independently: Yes Household members: none Housing: Apartment Marital status: Single Number of children: 2 Number of grandchildren: 0 Highest education level completed: Associate Degree: Occupational, Technical, Vocational Program Education level details: [facility] service: No Current occupational status: disabled Current occupational exposures/hazards: No Pets and animals: Yes Pets & animals: cat(s) Leisure activites: music, games and other Leisure activities details: watch a lot of movies Sexually active: No Do you think of yourself as: Straight/Heterosexual Current gender identity: Female Aparna/Judaism: Adventism Special aparna needs: No Agree to transfusion: Yes Female Reproductive History: Para: 2 Spontaneous abortions: Yes (10) Physical Exam 2 Const: GENERAL APPEARANCE: cooperative, in distress and anxious; not ill appearing and not frail appearing HENMT: COMMON NORMALS: normocephalic, atraumatic and Normal external nose present HEAD & SCALP: normocephalic and atraumatic FACE & SINUS: normal facial exam and face symmetric NOSE: Normal external nose present Eye: COMMON NORMALS: Equal, round and reactive pupils present and EOMs intact bilaterally PUPIL: Yes Equal, round and reactive pupils present Neck/C-Spine: GENERAL: Yes trachea midline Chest: CHEST: Yes Symmetrical chest wall rise Resp: COMMON NORMALS: normal respiratory effort, No retractions, No use of accessory muscles and clear to auscultation bilaterally AUSCULTATION: clear to auscultation bilaterally Cardio: COMMON NORMALS: regular rate and regular rhythm RATE: regular rate RHYTHM: regular rhythm GI: COMMON NORMALS: Normal to inspection, nondistended, normoactive bowel sounds present Extremity: NARRATIVE EXTREMITY EXAM: Minimal nonpitting edema. No cellulitis. No warmth. No significantly reproducible calf or popliteal tenderness. Neuro: KAMERON COMA SCALE: document GCS findings [place] coma scale eye opening: Spontaneous [place]on coma scale verbal response: Orientated [place] coma scale motor response: Obey commands [place] coma scale total score: 15 S ENSORY EXAM: Yes extremities (intact) Psych: COMMON NORMALS: speech normal SPEECH: Yes normal speech Skin: COMMON NORMALS: no rashes or lesions noted GENERAL SKIN EXAM: no rashes or lesions noted Course 2 Vital Signs: Vital signs: Vital Signs Temperature 98.2 F 10/04/24 21:20 Pulse Rate 89 10/05/24 00:50 Respiratory Rate 14 10/05/24 00:50 Blood Pressure 131/80 10/05/24 00:50 Pulse Oximetry 98 10/05/24 00:50 Oxygen Delivery Me thod Room Air 10/04/24 22:16 MDM - Extremity (Nontraumatic) Medical Decision Making Patient is in tears, is quite anxious, somewhat histrionic. Pain is minimally reproducible on palpation. There is minimal nonpitting edema to both legs. Pulses are normal. They are not cool to touch. No significant rash. No weeping. Her BNP is 67, CRP is 3.2. White blood cell count is improved at 6, hemoglobin 11, platelet count is 99. Potassium however is 3.1, and may be contributing. It is repleted orally here with liquid for faster absorption. She is given IV morphine with minimal relief. She is given IV haloperidol with some relief in the cramping pain. Her bilirubin is 2.3, which is improved from prior. Lab Data 10/04/24 22:42 10/04/24 22:42 Radiology Impressions Chest X-Ray 10/04/24 22:22 IMPRESSION: No acute cardiopulmonary abnormality. Laboratory Results WBC 6.16 10^3/uL (3.29-11.43) 10/04/24 22:42 RBC 3.64 10^6/uL (3.85-5.65) L 10/04/24 22:42 Hgb 10.80 g/dL (11.27-16.99) L 10/04/24 22:42 Hct 32.0 % (36-47) L 10/04/24 22:42 MCV 87.9 fl (85-98) 10/04/24 22:42 MCH 29.7 pg (27-33) 10/04/24 22: MCHC 33.8 g/dL (30-55) 10/04/24 22:42 RDW 16.0 % (12.1-15.1) H 10/04/24 22:42 Plt Count 99 10^3/cmm (157-399) L 10/04/24 22:42 MPV 9.3 fL (7.4-10.4) 10/04/24 22:42 Neut % (Auto) 67.4 % 10/04/24 22:42 Lymph % (Auto) 22.7 % 10/04/24 22: [place] % (Auto) 6.7 % 10/04/24 22: Eos % (Auto) 2.4 % 10/04/24 22:42 Baso % (Auto) 0.6 % 10/04/24 22: Neut # (Auto) 4.15 10^3/uL (1.8-7.7) 10/04/24 22:42 Lymph # (Auto) 1.4 10^3/uL (0.8-4.8) 10/04/24 22:42 [place] # (Auto) 0.4 10^3/uL (0.2-0.9) 10/04/24 22:42 Eos # (Auto) 0.2 10^3/uL (0.0-0.8) 10/04/24: Baso # (Auto) 0.0 10^3/uL (0.0-0.1) 10/04/24 22: Nucleated RBC % (auto) 0 % 10/04/24: Nucleated RBCs # 0.0 /100WBC 10/04/24 22:42 Sodium 143 mmol/L (136-145) 10/04/24 22: Potassium 3.1 mmol/L (3.5-5.1) L 10/04/24 22: Chloride 105 mmol/L (98-107) 10/04/24 22: Carbon Dioxide 22 mmol/L (22-29) 10/04/24 22:42 Anion Gap 19.1 (5-19) H 10/04/24 22:42 BUN 10 mg/dL (6-20) 10/04/24 22:42 Creatinine 0.7 mg/dL (0.5-0.9) 10/04/24 22:42 GFR Calculation 86.2 mL/min (90-130) L 10/04/24 22:42 Glucose 109 mg/dL (65-115) 10/04/24 22:42 Calculated Osmolality 296 mOsm/kg (285-295) H 10/04/24 22:42 Calcium 9.5 mg/dL (8.5-10.5) 10/04/24 22:42 Magnesium 1.8 mg/dL (1.7-2.3) 10/04/24 22:42 Total Bilirubin 2.3 mg/dL (0.15-1.2) H 10/04/24 22:42 AST 56 U/L (0-32) H 10/04/24 22:42 ALT 33 U/L (0-33) 10/04/24 22:42 Alkaline Phosphatase 195 U/L (35-105) H 10/04/24 22:42 C-Reactive Protein 3.2 mg/L (0.0-4.9) 10/04/24 22:42 NT-Pro-B Natriuret Pep 67 pg/mL (0-125) 10/04/24 22:42 Total Protein 7.1 g/dL (6.6-8.7) 10/04/24 22:42 Albumin 3.7 g/dL (3.5-5.2) 10/04/24 22:42 Globulin 3.4 g/dL (1.3-4.6) 10/04/24 22:42 Ethyl Alcohol 185 mg/dL (0-10) H 10/04/24 22:42 All radiology interpretation(s) finalized by discharge Discharge Plan Discharge Patient Disposition: Home Clinical Impression: Acute hypokalemia, Neuropathic pain of both legs Condition: Stable Prescriptions: New hydrocodone-acetaminophen 5-325 mg tablet 1 tab PO Q8H PRN (Reason: pain) Qty: 7 0RF gabapentin 300 mg capsule 300 mg PO Q8H Qty: 30 0RF No Action buspirone 5 mg tablet 5 mg PO ONCE Patient Comments: at bedtime tizanidine 4 mg capsule 4 mg PO Q8H PRN furosemide 20 mg tablet 20 mg PO QAM Qty: 30 0RF Rx Instructions: Take one tablet in AM along with potassium 10mEq tablet. multivitamin Tablet 1 tab PO DAILY Qty: 30 2RF potassium chloride [Klor-Con 10] 10 mEq tablet extended release 10 meq PO DAILY Qty: 30 0RF Rx Instructions: Take 1 tablet daily in AM with furosemide. fluoxetine 20 mg capsule PO multivitamin with folic acid [Tab-A-Boyd] 400 mcg tablet PO cephalexin 500 mg capsule 500 mg PO BID Qty: 10 0RF albuterol sulfate 90 mcg/actuation HFA aerosol inhaler 2 puff INHALATION Q4H PRN (Reason: Shortness Of Breath Or Wheezing) Vivitrol 380 mg suspension,extended rel recon 380 mg IM ONCE Qty: 1 0RF ziprasidone HCl 20 mg capsule 20 mg PO BID hydroxyzine HCl 25 mg tablet 25 mg PO Q8H PRN (Reason: anxiety) Qty: 10 0RF Discharge Orders: Discharge ED (Routine); Ordered 10/05/24 Ordered By: Pablito Pitts Referrals: Aida Vincent PA [Primary Care Provider, [facility] [employer] [facility]] Patient Instructions: Hypokalemia (ED), Peripheral Neuropathy (ED), Opioid Safety, Pain Management, Patient Portal & Deana Instructions Activity Restrictions/Additional Instructions: Resume your potassium, as your potassium was low, which will make your leg cramps and pain worse. You should have your potassium rechecked at some point next week. Call your doctor for a follow-up appointment. Pain medication for severe pain. Keep your legs elevated is much as possible. Return for fever or other concerns. Print Language: Chinese Coding Level of Care Code ED Roofing Technician for Rober Arellano
[2024-10-04] MEDS: haloperidol inj 5 mg/mL INJ 1 mL 3 MG IVP (23:35)
[2024-10-04] MEDS: potassium chloride oral liq 20 mEq/15 mL UDC 40 MEQ PO (23:35)
[2024-10-04 23:46] LABS: Alcohol Level 185 mg/dL (0-10)
[2024-10-05 00:50] VITALS: BP 131/80; PULSE 89; RESP 14; O2SAT 98
== END 2024-10-05 00:54 | disposition home or self-care (01) ==
PROVIDERS: Emergency Provider Emergency Medicine; PCP Physician Assistant
DX: E87.6 Hypokalemia (principal); M79.604 Pain in right leg; M79.605 Pain in left leg; F17.290 Nicotine dependence, other tobacco product, uncomplicated; E11.40 Type 2 diabetes mellitus with diabetic neuropathy, unspecified; I50.9 Heart failure, unspecified
CPT/HCPCS: 71045; 80053; 80307; 83735; 83880; 85025; 86140; 96374; 96375; 99284; J1630; J2270; J2405; J9999

== ENCOUNTER 2024-10-06 07:15 | Oncology outpatient (recurring) (ONCR) | payer MEDICARE, MEDICAID, SELFPAY ==
[2024-09-11 09:54] LABS: Basophils % 0.6 %; Eosinophils # 0.1 10^3/uL (0.0-0.8); Hematocrit 29.5 % (36-47); Lymphocytes # 0.9 10^3/uL (0.8-4.8); Mean Corpuscular HGB Conc 32.2 g/dL (30-55); Mean Corpuscular Hemoglobin 29.1 pg (27-33); Mean Corpuscular Volume 90.2 fl (85-98); Mean Platelet Volume 9.5 fL (7.4-10.4); Monocytes # 0.3 10^3/uL (0.2-0.9); Monocytes % 8.4 %; Neutrophils # 2.27 10^3/uL (1.8-7.7); Neutrophils % 63.7 %; Nucleated Red Blood Cells % 0 %; Platelet Count 83 10^3/cmm (157-399); Red Blood Count 3.27 10^6/uL (3.85-5.65); Red Cell Distribution Width 15.9 % (12.1-15.1); White Blood Count 3.56 10^3/uL (3.29-11.43)
[2024-09-11 09:59] LABS: Bilirubin Urine 1+ (Negative); Blood Urine Trace (Negative); Glucose Urine UA Negative (Normal); Ketones Urine Trace (Negative); Leukocyte Esterase Urine 2+ (Negative); Nitrate Urine Negative (Negative); Protein Urine Trace (Negative); Specific Gravity, Urine 1.019 (1.005-1.030); Urine Appearance Cloudy (CLEAR); Urine Color Dark Yellow (Yellow); pH Urine 5.5 (5-7)
[2024-09-11 10:01] LABS: Add Urine Microscopic? YES; Bacteria Urine 3+ /hpf; Hyaline Casts Urine 2.05 /lpf; RBC Urine 0-2 /hpf (0-2); WBC Urine >100 /hpf (0-5)
[2024-09-11 10:06] LABS: Add Urine Culture? Yes
[2024-09-11 10:10] LABS: Alanine Aminotransferase 31 U/L (0-33); Albumin Level 2.9 g/dL (3.5-5.2); Alkaline Phosphatase 125 U/L (35-105); Anion Gap 13.9 (5-19); Aspartate Amino Transferase 58 U/L (0-32); Blood Urea Nitrogen 8 mg/dL (6-20); Calcium 8.3 mg/dL (8.5-10.5); Carbon Dioxide 21 mmol/L (22-29); Chloride 114 mmol/L (98-107); Globulin 2.6 g/dL (1.3-4.6); Glucose 109 mg/dL (65-115); Osmolality Calculated 299 mOsm/kg (285-295); Potassium 3.9 mmol/L (3.5-5.1); Sodium 145 mmol/L (136-145); Total Bilirubin 2.2 mg/dL (0.15-1.2); Total Protein 5.5 g/dL (6.6-8.7)
[2024-09-11 10:34] LABS: Ferritin 65 ng/mL (15-150); Iron 57 ug/dL (37-145); Percent Saturation 20.3 % (20-50); Total Iron Binding Capacity 280 mcg/dl; Unsaturated Iron Binding 223 ug/dL (112-347)
[2024-09-11] MEDS: sodium chloride 0.9% 500 ML IV (12:37)
[2024-09-11] MEDS: FUROsemide 10 mg/mL SDV 2mL 20 MG IVP (12:39)
[2024-09-11] MEDS: potassium chloride ER 10 mEq Tablet PO (12:40)
[2024-09-18 13:00] LABS: Basophils % 0.3 %; Eosinophils # 0.1 10^3/uL (0.0-0.8); Eosinophils % 2.1 %; Lymphocytes # 0.6 10^3/uL (0.8-4.8); Lymphocytes % 15.9 %; Mean Corpuscular HGB Conc 31.3 g/dL (30-55); Mean Corpuscular Hemoglobin 29.3 pg (27-33); Mean Corpuscular Volume 93.5 fl (85-98); Mean Platelet Volume 11.3 fL (7.4-10.4); Monocytes # 0.2 10^3/uL (0.2-0.9); Monocytes % 5.2 %; Neutrophils # 2.93 10^3/uL (1.8-7.7); Neutrophils % 76.2 %; Nucleated Red Blood Cells % 0 %; Platelet Count 76 10^3/cmm (157-399); Red Blood Count 3.21 10^6/uL (3.85-5.65); Red Cell Distribution Width 16.4 % (12.1-15.1); White Blood Count 3.84 10^3/uL (3.29-11.43)
[2024-09-18 13:28] LABS: Alanine Aminotransferase 33 U/L (0-33); Alkaline Phosphatase 150 U/L (35-105); Blood Urea Nitrogen 8 mg/dL (6-20); Calcium 8.2 mg/dL (8.5-10.5); Carbon Dioxide 20 mmol/L (22-29); Chloride 108 mmol/L (98-107); Globulin 2.3 g/dL (1.3-4.6); Glomerular Filtration Rate 164.5 mL/min (90-130); Glucose 137 mg/dL (65-115); Osmolality Calculated 290 mOsm/kg (285-295); Sodium 140 mmol/L (136-145); Total Bilirubin 2.8 mg/dL (0.15-1.2); Total Protein 5.3 g/dL (6.6-8.7)
[2024-09-18 13:37] LABS: Anion Gap 16.2 (5-19); Aspartate Amino Transferase 69 U/L (0-32); Potassium 4.2 mmol/L (3.5-5.1)
[2024-09-18] MEDS: sodium chloride 0.9% 500 ML 350 ML IV (14:51)
[2024-09-18 15:42] VITALS: BP 147/78; BMI 37.0
[2024-09-18 16:57] VITALS: BP 134/78; PULSE 74; RESP 18; TEMP 37.1; O2SAT 98
[2024-09-25 10:02] LABS: Basophils % 0.4 %; Eosinophils # 0.1 10^3/uL (0.0-0.8); Eosinophils % 2.2 %; Hematocrit 28.8 % (36-47); Lymphocytes # 1.1 10^3/uL (0.8-4.8); Mean Corpuscular Hemoglobin 29.4 pg (27-33); Mean Corpuscular Volume 89.2 fl (85-98); Mean Platelet Volume 9.7 fL (7.4-10.4); Monocytes # 0.4 10^3/uL (0.2-0.9); Monocytes % 8.3 %; Neutrophils # 2.89 10^3/uL (1.8-7.7); Neutrophils % 64.9 %; Nucleated Red Blood Cells % 0 %; Platelet Count 81 10^3/cmm (157-399); Red Blood Count 3.23 10^6/uL (3.85-5.65); Red Cell Distribution Width 16.7 % (12.1-15.1); White Blood Count 4.46 10^3/uL (3.29-11.43)
[2024-09-25 10:15] LABS: Alanine Aminotransferase 37 U/L (0-33); Albumin Level 3.2 g/dL (3.5-5.2); Alkaline Phosphatase 129 U/L (35-105); Anion Gap 18.8 (5-19); Aspartate Amino Transferase 77 U/L (0-32); Blood Urea Nitrogen 7 mg/dL (6-20); Calcium 8.8 mg/dL (8.5-10.5); Carbon Dioxide 20 mmol/L (22-29); Chloride 108 mmol/L (98-107); Globulin 2.8 g/dL (1.3-4.6); Glomerular Filtration Rate 164.5 mL/min (90-130); Glucose 87 mg/dL (65-115); Osmolality Calculated 293 mOsm/kg (285-295); Potassium 3.8 mmol/L (3.5-5.1); Sodium 143 mmol/L (136-145); Total Bilirubin 3.7 mg/dL (0.15-1.2)
[2024-09-25 12:20] LABS: Reticulocyte % 1.5 % (0.5-2.0)
[2024-09-25 12:37] LABS: INR 1.29 (0.8-1.2)
[2024-09-25 12:38] LABS: Partial Thromboplastin Time 34.5 SECONDS (23.9-36.7)
[2024-09-25 12:47] LABS: Bilirubin Direct 1.87 mg/dL (0.00-0.30); Bilirubin Indirect 1.63; Ferritin 82 ng/mL (15-150); Iron 199 ug/dL (37-145); Lactate Dehydrogenase 347 U/L (135-214); Percent Saturation 66.3 % (20-50); Total Bilirubin 3.5 mg/dL (0.15-1.2); Total Iron Binding Capacity 300 mcg/dl; Unsaturated Iron Binding 101 ug/dL (112-347)
[2024-09-25 12:55] LABS: Hepatitis C Virus Antibody Non-Reactive (Nonreactive)
[2024-09-25 13:00] LABS: Vitamin B12 1745 pg/mL (232-1245)
[2024-09-25 13:03] LABS: Folate Level 7.2 ng/mL (4.8-37.3); Hepatitis B Core AB, Total Non-Reactive (Nonreactive); Hepatitis B Surface AB < 3.5 (11.5-1000); Hepatitis B Surface Antigen Non-Reactive (Nonreactive)
--- NOTE | 2024-10-06 07:15 | US_ITS ---
WS: [id number] ABDOMINAL ULTRASOUND REASON FOR EXAM: thrombocytopenia TECHNIQUE: Grayscale and Doppler ultrasound examination of the abdomen. FINDINGS: Pancreas: Poorly visualized with no mass, calcification or ductal dilatation seen. Abdominal aorta and IVC: Normal Liver: Liver measures 12.9 cm in length. Pulsatile reversal of flow in the main portal vein. No focal lesion. Gallbladder: Post cholecystectomy. Common bile duct 0.8 cm with no significant intrahepatic ductal dilatation. Left kidney: Left kidney measures 12.1 cm x 4.2 cm x 4.1 cm. Left kidney cortex measures 1.0 cm. No mass, calculus, or hydronephrosis. Right kidney: Right kidney measures 11.6 cm x 5.1 cm x 4.9 cm. Right kidney cortex measures 1.0 cm. Solid-appearing mass in the right mid central kidney 2 x 2 x 2 cm. Spleen: Spleen measures 12.7 cm x 3.7 cm x 12.7 cm. No focal lesion. US/US abdomen complete* [id number] IMPRESSION: Small abnormal echotexture of the liver with portal venous hypertension. Mild splenomegaly. Compensatory dilatation of the common bile duct post cholecystectomy, previousl y demonstrated to 07/27/2018. Small central solid mass in the right kidney versus hypertrophied column of Theron tin. CT scan of the abdomen and pelvis with contrast as clinically warranted.
== END 2024-10-06 23:59 | disposition home or self-care (01) ==
LOC: RAD 10-07 → ONCMED 10-08 13:14
PROVIDERS: Nurse Practitioner Family; PCP Physician Assistant; Visit Provider Internal Medicine
DX: D61.818 Other pancytopenia; D50.9 Iron deficiency anemia, unspecified; R93.2 Abnormal findings on diagnostic imaging of liver and biliary tract; K76.6 Portal hypertension; Z90.49 Acquired absence of other specified parts of digestive tract; N28.9 Disorder of kidney and ureter, unspecified; Z53.9 Procedure and treatment not carried out, unspecified reason
CPT/HCPCS: 36415; 76700; 80053; 81001; 82247; 82248; 82607; 82728; 82746; 83010; 83540; 83550; 83615; 85025; 85045; 85610; 85730; 86704; 86706; 86803; 87077; 87086; 87186; 87340; 96360; 96361; 96374; 99213; 99215; J1938; J7040; J9999

== ENCOUNTER 2024-11-24 14:27 | Inpatient (IN) | payer MEDICARE, MEDICAID, SELFPAY ==
--- OUTSIDE RECORDS SUMMARY | 2024-02-02 04:00 | XMS_ITS ---
Author Organization [facility] Address [address] [place] [address] Care Team Providers Care Section Weaver Name Role Phone Joseph Lewis MD Primary Care Provider Zane Joiner Unavailable [phone] ELROY BOOTHE Unavailable Unavailable Migration, Provider Unavailable Unavailable REASON FOR VISIT EMR-Luke Encounters Encounter Location Date Provider Diagnosis Migrated_Facility 0 0 02/02/2024 Provider Migration Plan Of Treatment Medication Medication Name Sig Start Date Stop Date Notes Zubsolv 5.7-1.4 mg sublingual tablet, sublingual 1 Tablet Twice a Day 02/20/2019 03/22/2019 *Reorder from [facility] for eRx and Interaction Alerts* Progress Notes * Kay GAMBOA MDOB:1965 (59 yo F)Acc No.[id number]:02/02/2024 Patient: Elva Kay RODRIGUEZ :1965 A ge:58 Y S ex:Female Address:[address], [address] [place] [address] * Refills Stop Zubsolv 5.7-1.4 mg sublingual tablet, sublingual, 1 Tablet Twice a Day Subjective: * Chief Complaints: * E MR-Luke * * Date:
--- OUTSIDE RECORDS SUMMARY | 2024-02-03 04:00 | XMS_ITS ---
Author Organization [facility] Address [address] [place] [address] Care Team Providers Care Reading Aide Name Role Phone Joseph Lewis MD Primary Care Provider Zane Joiner Unavailable [phone] ELROY BOOTHE Unavailable Unavailable Migration, Provider Unavailable [...] * Kay GAMBOA MDOB:1965 (59 yo F)Acc No.[id number]:02/03/2024 Patient: Elva CADEKay BIGGS :1965 A ge:58 Y S ex:Female Address:[address] [place] [address] Subjective: * Chief Complaints: * E MR-Luke [...]
[2024-09-18 15:42] VITALS: BP 147/78; BMI 37.0
--- OUTSIDE RECORDS SUMMARY | 2024-11-22 20:22 | XMS_ITS | Encounter Summary ---
Author Organization [facility] Address 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 Name Role Phone Unavailable Primary Care Provider Unavailabl e Reason for Visit * Reason Comments Abdominal Pain Encounter Details Date Type Department Care Team (Late st Contact Info) Description 11/22/2024 8:22 PM CDT - 11/22/2024 10:24 PM CDT Emergency [facility] Emergency Medicine [address] [place] [address] Julian Avila MD [address] [place] [id number] Nausea (Primary Dx); Acute low back pain without sciatica, unspecified back pain laterality Discharge Disposition: Home or Self Care Social History Tobacco Use Types Packs/Day Years Used Date Smoking Tobacco: Every Day Cigarettes Smokeless Tobacco: Never Comments:4 cigarettes daily Alcohol Use Standard Drinks/Week Comments Yes 21 (1 standard drink = 0.6 oz pu re alcohol) about a pint a day Comments No Sex and Gender Information Value Date Recorded Sex Assigned at Not on file 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 Gender Identity Not on file Sexual Orientation Not on file documented as of this encounter Last Filed Vital Signs Vital Sign Reading Time Taken Comments Blood Pressure 138/58 11/22/2024 9:45 PM CDT Pulse 90 11/22/2024 9:45 PM CDT Temperature 36.5 C (97.7 F) 11/22/2024 8:20 PM CDT Respiratory Rate 17 11/22/2024 8:20 PM CDT Oxygen Saturation 97% 11/22/2024 9:45 PM CDT Inhaled Oxygen Concentration - - Weight 67 kg (147 lb 9.6 oz) 11/22/2024 8:20 PM CDT Height 149.9 cm (4' 11 ) 11/22/2024 8:20 PM CDT Body Mass Index 29.81 11/22/2024 8:20 PM CDT documented in this encounter Discharge Instructions * Discharge Instructions* Julian Avila MD - 11/22/2024 9:36 PM CDT Medicines as prescribed. Follow-up with your primary care provider for more long-term pain relief. Take Zofran for nausea I do recommend you cut down on alcohol if you have any new or worsening symptoms return to the emergency department * Attachments The following attachments cannot be sent through Care Everywhere. * Nausea and Vomiting (Iranian) * Hydrocodone Combination Products (Iranian) * Ondansetron (Iranian) documented in this encounter Medications at Time of Discharge ondansetron (ZOFRAN ODT) 4 mg Tablet, Rapid Dissolve Take 1 Tablet (4 mg) by mouth every 8 hours as needed for Nausea/Emesis. Dissolve tablet on top of tongue, then swallow with saliva. 20 Tablet 11/22/2024 HYDROcodone-acet aminophen (NORCO) 5-325 mg tabletIndication s:Nausea Take 1 Tablet by mouth every 6 hours as needed for Pain, Moderate. Max Daily Amount: 4 Tablets 4 Tablet 11/22/2024 tiZANidine (ZANAFLEX) 4 mg Capsule Take 4 mg by mouth every 8 hours as needed for Spasm. nitroglycerin (NITRO-TIME) 2.5 mg Extended Release capsule Take 2.5 mg by mouth 2 times daily. cyclobenzaprine (FLEXERIL) 10 mg tablet Take 1 Tablet (10 mg) by mouth 3 times daily as needed for Spasm or Pain. To be dispersed here. 4 Tablet 10/24/2024 cyclobenzaprine (FLEXERIL) 10 mg tablet Take 1 Tablet (10 mg) by mouth 3 times daily as needed for Spasm or Pain. 16 Tablet 10/24/2024 busPIRone (BUSPAR) 5 mg tablet Take 5 mg by mouth 3 times daily. ziprasidone (GEODON) 40 mg Capsule Take 40 mg by mouth daily. documented as of this encounter ED Notes * Ally Arredondo RN - 11/22/2024 10:23 PM CDT Patient given take home pack with instructions and verbalized understanding. * Reva Fernandes RCP - 11/22/2024 8:41 PM CDT EKG completed. Results given to Dr. Avila and scanned into [facility]. * Ally Arredondo RN - 11/22/2024 8:26 PM CDT Patient arrives POV ambulatory with steady gait for c/o abdominal pain with nausea/vomiting and diarrhea times 1 day. Patient was seen two days ago at [facility] and states she has a vertebral fracture and went and picked up a bottle of [employer] Patient reports hx of liver failure. * Julian Avila MD - 11/22/2024 8:14 PM CDTAssociated Order(s): EKG 12 lead HISTORY OF PRESENT ILLNESS Patient is a 59-year-old with past medical history of anxiety arthritis back pain CHF chronic liverdisease. She is here with complaints of nausea. States that yesterday was seen at an outside hospital diagnosed with a compression fracture in her vertebra was arrange for outside follow-up however she felt her pain was not addressed so she started drinking alcohol. States she drank about half of abottle of bourbon since then she has been nauseous but not initially had any abdominal pain has vomited twice yesterday but not today has been able to keep down food and fluids no fevers chest pain altered mental status difficulty urinating or rash Abdominal Pain PAST MEDICAL HISTORY REVIEWED MEDICAL: Patient has a past medical history of Anxiety, Arthritis, Back pain, Bulimia, CHF (congestive heartfailure) ([facility]), Clostridium difficile enterocolitis, COPD (chronic obstructive pulmonary disease) ([facility]), COPD (chronic obstructive pulmonary disease) ([facility]), Dehydration, Depression, Diabetes mellitus ([facility]), Diabetes mellitus ([facility]), Enlarged heart, Esophageal varices ([facility]), GERD (gastroesophageal reflux disease), Headache, Headache, Hematuria, Hyperlipidemia, IBS (irritablebowel syndrome), Influenza, Liver disease, unspecified, MS (multiple sclerosis) ([facility]), MS (multiple sclerosis) ([facility]), Pneumonia, and Seizure disorder ([facility]). SURGICAL: Patient has a past surgical history that includes section; appendectomy; cholecystectomy; hysterectomy; secondary intraocular lense implantation; pr esophagogastroduodenoscopy transoral diagnostic (N/A, 02/17/2016); cholecystectomy; pr colonoscopy flx dx w/collj spec when pfrmd (N/A, 02/17/2016); hysterectomy; section; heart catheterization; spinal surgery; and appendectomy. ALLERGIES Acetaminophen, Aspirin, Cephalexin, Ibuprofen, Metoclopramide, Nsaids (non- steroidal anti-inflammatory drug), Prednisone, Sulfa (sulfonamide antibiotics), and Sumatriptan PHYSICAL EXAM INITIAL VS BP: (!) 152/62 (11/22/242019), Heart Rate: 81 bpm (11/22/242019), Resp: 17 (11/22/242019), Pulse: 91 (11/22/242099), Temp: 97.7 ??F (36.5 ??C) (11/22/242019), Temp src: Tympanic (11/22/242019),SpO2: 99 % (11/22/242019), Height: 4' 11 (149.9 cm) (11/22/242019), Weight: 67 kg (147 lb 9.6 oz) (11/22/242019), BMI (Calculated): (!) 29.82 (11/22/242019) No LMP recorded. Patient has had a hysterectomy. Physical Exam Vitals and nursing note reviewed. Constitutional: Appearance: She is well-developed and normal weight. HENT: Head: Normocephalic and atraumatic. Eyes: Extraocular Movements: Extraocular movements intact. Pupils: Pupils are equal, round, and reactive to light. Cardiovascular: Rate and Rhythm: Normal rate and regular rhythm. Heart sounds: Normal heart sounds. Pulmonary: Effort: Pulmonary effort is normal. Breath sounds: Normal breath sounds. Abdominal: General: Abdomen is flat. Bowel sounds are normal. Palpations: Abdomen is soft. Hernia: No hernia is present. Skin: General: Skin is warm. Neurological: Mental Status: She is alert. DIAGNOSTICS LAB: CBC WITH DIFFERENTIAL - Abnormal Result Value WBC 9.6 RBC 2.89 (*) HEMOGLOBIN 8.3 (*) HEMATOCRIT 24.0 (*) MCV 83.0 MCH 28.7 MCHC 34.6 RDW 15.4 (*) RDW-STDEV 46.5 PLATELETS 82 (*) MPV 10.9 NEUTROPHILS 83 (*) LYMPHOCYTES 6 (*) MONOCYTES 9 EOSINOPHILS 1 BASOPHILS 0 IMMATURE GRANULOCYTES 1 NEUTROPHIL ABSOLUTE 7.95 (*) LYMPHOCYTE ABSOLUTE 0.56 (*) MONOCYTE ABSOLUTE 0.87 (*) EOSINOPHIL ABSOLUTE 0.08 BASOPHILS ABSOLUTE 0.03 IMMATURE GRANULOCYTES ABSOLUTE 0.12 COMPREHENSIVE METABOLIC PANEL - Abnormal SODIUM 134 (*) POTASSIUM 3.5 CHLORIDE 98 CO2 22 CALCIUM 8.6 BUN 15 CREATININE 0.65 GLUCOSE 92 TOTAL PROTEIN 5.4 (*) ALBUMIN 3.1 (*) BILIRUBIN TOTAL 2.7 (*) ALKALINE PHOSPHATASE 123 (*) AST 62 (*) ALT 27 GFR >60 ANION GAP 14 LIPASE - Abnormal LIPASE 72 (*) MANUAL DIFFERENTIAL PLATELET EST. Consistent w Count RBC MORPHOLOGY Normal RADIOLOGY: No orders to display EKG: PROCEDURES EKG 12 lead Performed by: Julian Avila MD Authorized by: Julian Avila MD Comments: Normal sinus rhythm no evidence of ischemia or infarct normal axis and intervals no arrhythmias MEDICAL DECISION MAKING AND PLAN OF CARE Medical Decision Making Patient is a 59-year-old here with nausea [place] includes alcoholic gastritis nausea and vomiting ACS Will get ECG make sure there does not appear to be STEMI or cardiac involvement Zofran for nausea as well as CT CMP and CBC Give her Zofran and Toradol for pain Patient feels better after Zofran and Toradol labs unremarkable ECG normal Pain require give her a few doses of pain medicine until she can follow-up with her pain doctor this point I feel she is appropriate for discharge and follow-up as an outpatient Lab Results Component Value Date/Time NA 134 (L) 11/22/2024 08:33 PM K 3.5 11/22/2024 08:33 PM CL 98 11/22/2024 08:33 PM CO2 22 11/22/2024 08:33 PM CA 8.6 11/22/2024 08:33 PM BUN 15 11/22/2024 08:33 PM CREAT 0.65 11/22/2024 08:33 PM GLUCOSE 92 11/22/2024 08:33 PM TOTALPROTEIN 5.4 (L) 11/22/2024 08:33 PM ALBUMIN 3.1 (L) 11/22/2024 08:33 PM BILITOTAL 2.7 (H) 11/22/2024 08:33 PM ALKPHOS 123 (H) 11/22/2024 08:33 PM AST 62 (H) 11/22/2024 08:33 PM ALT 27 11/22/2024 08:33 PM ANIONGAP 14 11/22/2024 08:33 PM Lab Results Component Value Date/Time WBC 9.6 11/22/2024 08:33 PM HGB 8.3 (L) 11/22/2024 08:33 PM HCT 24.0 (L) 11/22/2024 08:33 PM PLT 82 (L) 11/22/2024 08:33 PM MCV 83.0 11/22/2024 08:33 PM After speaking with and examining patient, reviewing today's visit, labs, xray and extensive nursesnotes- I feel patients complaints are not acute nor life threatening. The patient's evaluation, exam, findings and plan of care were discussed with the patient here in the emergency department. I have discussed that this focused care is based on an urgent and emergent basis and in no way representscomplete or continued care of their entire health conditions and that follow up care is an important part of the care and plan they have received here in the emergency department. They have voiced understanding and are comfortable with the plan of care. Amount and/or Complexity of Data Reviewed Labs: ordered. Decision-making details documented in ED Course. ECG/medicine tests: ordered. Decision-making details documented in ED Course. Risk Prescription drug management. Clinical Scoring & Consults Medications Administered During the ED Stay from 11/22/20242014 to 11/22/2024 2344 Date/Time Order Dose Route Action 11/22/20242042 CDT ondansetron (ZOFRAN) 4 mg/2 mL injection 4 mg 4 mg IV Given 11/22/20242055 CDT morphine 4 mg/mL injection 4 mg 4 mg IV Given Discharge Medication List as of 11/22/2024 9:55 PM START taking these medications Details ondansetron (ZOFRAN ODT) 4 mg Tablet, Rapid Dissolve Take 1 Tablet (4 mg) by mouth every 8 hours asneeded for Nausea/Emesis. Dissolve tablet on top of tongue, then swallow with saliva., Disp-20 Tablet, R-0 HYDROcodone-acetaminophen (NORCO) 5-325 mg tablet Take 1 Tablet by mouth every 6 hours as needed for Pain, Moderate. Max Daily Amount: 4 Tablets, Disp-4 Tablet, R-0 CONTINUE these medications which have NOT CHANGED Details tiZANidine (ZANAFLEX) 4 mg Capsule Take 4 mg by mouth every 8 hours as needed for Spasm. nitroglycerin (NITRO-TIME) 2.5 mg Extended Release capsule Take 2.5 mg by mouth 2 times daily. !! cyclobenzaprine (FLEXERIL) 10 mg tablet Take 1 Tablet (10 mg) by mouth 3 times daily as needed for Spasm or Pain. To be dispersed here., Disp-4 Tablet, R-0 !! cyclobenzaprine (FLEXERIL) 10 mg tablet Take 1 Tablet (10 mg) by mouth 3 times daily as needed for Spasm or Pain., Disp-16 Tablet, R-0 busPIRone (BUSPAR) 5 mg tablet Take 5 mg by mouth 3 times daily. ziprasidone (GEODON) 40 mg Capsule Take 40 mg by mouth daily. !! - Potential duplicate medications found. Please discuss with provider. LAST VS BP: 138/58 (11/22/242144), Heart Rate: 81 bpm (11/22/242019), Resp: 17 (11/22/242019), Pulse: 90(11/22/242144), Temp: 97.7 ??F (36.5 ??C) (11/22/242019), Temp src: Tympanic (11/22/242019), SpO2: 97 % (11/22/242144) CLINICAL IMPRESSION Diagnoses Diagnosis Comment Added By Time Added Nausea [R11.0] Julian Avila MD 11/22/2024 9:31 PM Acute low back pain without sciatica, unspecified back pain laterality [M54.50] Julian Avila MD 11/22/2024 9:33 PM DISPOSITION, EDUCATION AND MEDICATION RECONCILIATION Medications reconciled. See after visit summary for patient education on discharged patients. ED Disposition ED Disposition Discharge Condition Stable User Julian Avila MD Date/Time Sat Nov 22, 2024 9:31 PM Comment -- ATTESTATION STATEMENTS documented in this encounter Plan of Treatment Not on file documented as of this encounter Procedures Procedure Name Priority Date/Time Associated Diagnosis Comments DIFFERENTIAL, MANUAL Stat 11/22/2024 8:33 PM CDT CBC WITH DIFFERENTIAL Stat 11/22/2024 8:33 PM CDT LIPASE Stat 11/22/2024 8:33 PM CDT COMPREHENSIVE METABOLIC PANEL Stat 11/22/2024 8:33 PM CDT EKG 12-LEAD Stat 11/22/2024 8:14 PM CDT documented in this encounter Results * MANUAL DIFFERENTIAL (11/22/2024 8:33 PM CDT) PLATELET EST. Consistent w Count 11/22/2024 8:53 PM CDT [facility] RBC MORPHOLOGY Normal 11/22/2024 8:53 PM CDT [facility] Blood BLOOD SPECIMEN / Unknown Collection / Unknown 11/22/2024 8:33 PM CDT 11/22/2024 8:39 PM CDT us Julian Avila MD HEMATOLOGY ORDERABLES COM Final Result [facility] CLIA # [id number] [address] [place] [id number] * (ABNORMAL) LIPASE (11/22/2024 8:33 PM CDT) Pathologist [facility] LIPASE 72(H) 13 - 60 U/L 11/22/2024 8:57 PM [facility] Blood BLOOD SPECIMEN / Unknown Collection / Unknown 11/22/2024 8:33 PM CDT 11/22/2024 8:39 PM CDT us Julian Avila MD CHEMISTRY ORDERABLES Final Result [facility] CLIA # [id number] [address] [place] [id number] * (ABNORMAL) COMPREHENSIVE METABOLIC PANEL (11/22/2024 8:33 PM CDT) Pathologist [facility] SODIUM 134(L) 136 - 145 mmol/L 11/22/2024 8:57 PM [facility] POTASSIUM 3.5 3.5 - 5.1 mmol/L 11/22/2024 8:57 PM [facility] CHLORIDE 98 98 - 107 mmol/L 11/22/2024 8:57 PM [facility] CO2 22 22 - 29 mmol/L 11/22/2024 8:57 PM [facility] CALCIUM 8.6 8.6 - 10.0 mg/dL 11/22/2024 8:57 PM [facility] BUN 15 6 - 20 mg/dL 11/22/2024 8:57 PM [facility] CREATININE 0.65 0.51 - 0.95 mg/dL 11/22/2024 8:57 PM [facility] GLUCOSE 92 74 - 99 mg/dL 11/22/2024 8:57 PM [facility] TOTAL PROTEIN 5.4(L) 6.6 - 8.7 g/dL 11/22/2024 8:57 PM [facility] ALBUMIN 3.1(L) 3.5 - 5.2 g/dL 11/22/2024 8:57 PM T [facility] BILIRUBIN TOTAL 2.7(H) 0.0 - 1.2 mg/dL 11/22/2024 8:57 PM [facility] ALKALINE PHOSPHATASE 123(H) 35 - 104 U/L 11/22/2024 8:57 PM [facility] AST 62(H) 0 - 35 U/L 11/22/2024 8:57 PM [facility] ALT 27 0 - 35 U/L 11/22/2024 8:57 PM [facility] GFR >60 >=60 mL/min/1.7 3 sq meter 11/22/2024 8:57 PM [facility] Comment:eGFR calculated with 2020 CKD-EPI equation. Vegetarian diet, extremely high or low muscle mass, and may affect results. Cystatin C with Glomerular Filtration Rate is a suitable alternative for these patients. ANION GAP 14 5 - 20 mmol/L 11/22/2024 8:57 PM [facility] Blood BLOOD SPECIMEN / Unknown Collection / Unknown 11/22/2024 8:33 PM CDT 11/22/2024 8:39 PM CDT us Julian Avila MD CHEMISTRY ORDERABLES Final Result [id number] [address] [place] [address] * (ABNORMAL) CBC WITH DIFFERENTIAL (11/22/2024 8:33 PM CDT) WBC 9.6 4.0 - 10.0 K/uL 11/22/2024 8:53 PM [facility] RBC 2.89(L) 3.93 - 5.22 M/uL 11/22/2024 8:53 PM [facility] HEMOGLOBIN 8.3(L) 11.2 - 15.7 g/dL 11/22/2024 8:53 PM [facility] HEMATOCRIT 24.0(L) 34.1 - 44.9 % 11/22/2024 8:53 PM [facility] MCV 83.0 79.4 - 94.8 fL 11/22/2024 8:53 PM [facility] MCH 28.7 25.6 - 32.2 pg 11/22/2024 8:53 PM [facility] MCHC 34.6 32.2 - 35.5 g/dL 11/22/2024 8:53 PM [facility] RDW 15.4(H) 11.0 - 14.5 % 11/22/2024 8:53 PM [facility] RDW-STDEV 46.5 36.9 - 56.9 fL 11/22/2024 8:53 PM [facility] PLATELETS 82(L) 163 - 337 K/uL 11/22/2024 8:53 PM [facility] MPV 10.9 10.0 - 14.8 fL 11/22/2024 8:53 PM [facility] NEUTROPHILS 83(H) 34 - 71 % 11/22/2024 8:53 PM [facility] LYMPHOCYTES 6(L) 19 - 52 % 11/22/2024 8:53 PM [facility] MONOCYTES 9 5 - 13 % 11/22/2024 8:53 PM [facility] EOSINOPHILS 1 1 - 6 % 11/22/2024 8:53 PM [facility] BASOPHILS 0 0 - 1 % 11/22/2024 8:53 PM [facility] IMMATURE GRANULOCYTES 1 % 11/22/2024 8:53 PM [facility] NEUTROPHIL ABSOLUTE 7.95(H) 1.56 - 6.13 K/uL 11/22/2024 8:53 PM [facility] LYMPHOCYTE ABSOLUTE 0.56(L) 1.20 - 3.40 K/uL 11/22/2024 8:53 PM [facility] MONOCYTE ABSOLUTE 0.87(H) 0.24 - 0.36 K/uL 11/22/2024 8:53 PM CDT [facility] EOSINOPHIL ABSOLUTE 0.08 0.04 - 0.36 K/uL 11/22/2024 8:53 PM CDT [facility] BASOPHILS ABSOLUTE 0.03 0.01 - 0.08 K/uL 11/22/2024 8:53 PM CDT [facility] IMMATURE GRANULOCYTES ABSOLUTE 0.12 K/uL 11/22/2024 8:53 PM CDT [facility] Blood BLOOD SPECIMEN / Unknown Collection / Unknown 11/22/2024 8:33 PM CDT 11/22/2024 8:39 PM CDT us Julian Avila MD HEMATOLOGY ORDERABLES Final Result [facility] CLIA # [id number] [address] [place] [id number] * EKG 12 lead (11/22/2024 8:14 PM CDT) Narrative Julian Avila MD - 11/22/2024 8:14 PM CDT Julian Avila MD 11/22/2024 11:44 PM EKG 12 lead Performed by: Julian Avila MD Authorized by: Julian Avila MD Comments: Normal sinus rhythm no evidence of ischemia or infarct normal axis and intervals no arrhythmias us Julian Avila MD ECG ORDERABLES Final Result documented in this encounter Visit Diagnoses Diagnosis Nausea- Primary Nausea alone Acute low back pain without sciatica, unspecified back pain laterality documented in this encounter Administered Medications Inactive Administered Medications - up to 3 most recent administrations Medication Order MAR Action Action Date Dose Rate Site morphine 4 mg/mL injection 4 mg 4 mg, IV, ONE TIME ONLY, 1 dose, On 11/22/24 at 2100, Routine Given 11/22/2024 8:56 PM CDT 4 mg ondansetron (ZOFRAN) 4 mg/2 mL injection 4 mg 4 mg, IV, ONE TIME ONLY, 1 dose, On 8/16/25 at 2030, Routine Given 11/22/2024 8:43 PM CDT 4 mg documented in this encounter Active and Recently Administered Medications Times are shown in CDT. Scheduled Medication Order 11/20/2024 11/21/2024 11/22/2024 morphine 4 mg/mL injection 4 mg (COMPLETED) 4 mg, IV, ONE TIME ONLY, 1 dose, On 11/22/24 at 2100, Routine 2055 (Given - Provid er: Ally Arredondo RN) ondansetron (ZOFRAN) 4 mg/2 mL injection 4 mg (COMPLETED) 4 mg, IV, ONE TIME ONLY, 1 dose, On 11/22/24 at 2030, Routine 2042 (Given - Provid er: Ally Arredondo RN) documented in this encounter
[2024-11-24 14:29] VITALS: BP 135/74; PULSE 94; TEMP 37.2; O2SAT 96; BMI 31.8
--- OUTSIDE RECORDS SUMMARY | 2024-11-24 14:32 | XMS_ITS | Encounter Summary ---
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 Gender Identity Not on file Sexual Orientation Not on file documented as of this encounter Plan of Treatment Not on file documented as of this encounter Visit Diagnoses Not on filedocumented in this encounter Additional Health Concerns Infection Onset Date Last Indicated Resolved Time R/O COVID-19 01/31/2020 01/31/2020 02/02/2020 10:3 2 AM CDT documented as of this encounter Care Teams Clerical Office Worker Relationship Specialty Start Date End Date Areli Gurrola MD [address] [facility] [place] [address] PCP - General Specialist 08/12/19 documented as of this encounter
--- OUTSIDE RECORDS SUMMARY | 2024-11-24 14:32 | XMS_ITS | Encounter Summary ---
Author Organization [facility] Address [address] [facility] Attn: [place] [address] Care Team Providers Care Primer Inserting Machine Operator Name Role Phone Areli Gurrola MD Primary Care Provider Encounter Details Date Type Department Care Team (Late st Contact Info) Description 06/11/2001 Inpatient Historical Renan Martinez MD [address] [place] [phone] Social History Tobacco Use Types Packs/Day Years Used Date Smoking Tobacco: Never Assessed Comments Unknown Sex and Gender Information Value Date Recorded Sex Assigned at Not on file 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 Gender Identity Not on file Sexual Orientation Not on file documented as of this encounter Plan of Treatment Not on file documented as of this encounter Visit Diagnoses Not on filedocumented in this encounter Additional Health Concerns Infection Onset Date Last Indicated Resolved Time R/O COVID-19 01/31/2020 01/31/2020 02/02/2020 10:3 2 AM CDT documented as of this encounter Care Teams Primer Inserting Machine Operator Relationship Specialty Start Date End Date Areli Gurrola MD [address] [facility] [place] [address] PCP - General Specialist 08/12/19 documented as of this encounter
--- OUTSIDE RECORDS SUMMARY | 2024-11-24 14:32 | XMS_ITS | Encounter Summary ---
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
--- OUTSIDE RECORDS SUMMARY | 2024-11-24 14:32 | XMS_ITS | Encounter Summary ---
Author Organization [facility] Address [address] [place] [address] Care Team Providers Care Integrated Marketing Manager Name Role Phone Areli Gurrola MD Primary Care Provider Encounter Details Date Type Department Care Team (Latest Contact Info) Description 06/07/2000 Outpatient Historical 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
--- OUTSIDE RECORDS SUMMARY | 2024-11-24 14:32 | XMS_ITS | Encounter Summary ---
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
--- OUTSIDE RECORDS SUMMARY | 2024-11-24 14:32 | XMS_ITS | Encounter Summary ---
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
--- OUTSIDE RECORDS SUMMARY | 2024-11-24 14:32 | XMS_ITS | Encounter Summary ---
Author Organization [facility] Address [address] [place] [address] Care Team Providers Care Natural Resources Faculty Member Name Role Phone Areli Gurrola MD Primary Care Provider Encounter Details Date Type Department Care Team (Latest Contact Info) Description 08/18/1999 Outpatient Historical [facility] Joseph Ramos MD [address] [place] [address] Pain in joint, hand (Primary Dx) Social History Tobacco Use Types Packs/Day Years Used Date Smoking Tobacco: Never Assessed Comments Unknown Sex and Gender Information Value Date Recorded Sex Assigned at Not on file Legal Sex Female 3:40 AM MILL CONTROL OPERATOR Gender Identity Not on file Sexual [...] documented as of this encounter Care Teams Natural Resources Faculty Member Relationship Specialty Start Date End Date Areli Gurrola MD [address] [facility] [place] [address] PCP - General Specialist 08/12/19 documented as of this encounter
--- OUTSIDE RECORDS SUMMARY | 2024-11-24 14:32 | XMS_ITS | Encounter Summary ---
Author Organization [facility] Address [address] [place] [address] Care Team Providers Care Construction Framer Name Role Phone Areli Gurrola MD Primary Care Provider Encounter Details Date Type Department Care Team (Late st Contact Info) Description 06/11/2001 Outpatient Historical [facility] Gen Spec Surg [address] [place] [address] Social History Tobacco Use Types Packs/Day Years Used Date Smoking Tobacco: Never Assessed Comments Unknown Sex and Gender Information Value Date Recorded Sex Assigned at Not on file Legal Sex Female 3:40 AM TEST AND BALANCE ENGINEER Gender Identity Not on file Sexual Orientation Not on file documented as of this encounter Plan of Treatment Not on file documented as of this encounter Visit Diagnoses Not on filedocumented in this encounter Additional Health Concerns Infection Onset Date Last Indicated Resolved Time R/O COVID-19 01/31/2020 01/31/2020 02/02/2020 10:3 2 AM CDT documented as of this encounter Care Teams Construction Framer Relationship Specialty Start Date End Date Areli Gurrola MD [address] [place] [address] PCP - General Specialist 08/12/19 documented as of this encounter
--- OUTSIDE RECORDS SUMMARY | 2024-11-24 14:32 | XMS_ITS | Encounter Summary ---
Author Organization [facility] Address [address] [facility] Attn: [place] [address] Care Team Providers Care Riding Coach Name Role Phone Areli Gurrola MD [...] file Legal Sex Female 3:40 AM ELEMENTARY SCHOOL PRINCIPAL Gender Identity Not on file Sexual Orientation Not on file documented as of this encounter Plan of Treatment Not on file documented as of this encounter Visit Diagnoses Not on filedocumented in this encounter Additional Health Concerns Infection Onset Date Last Indicated Resolved Time R/O COVID-19 01/31/2020 01/31/2020 02/02/2020 10:3 2 AM CDT documented as of this encounter Care Teams Riding Coach Relationship Specialty Start Date End Date Areli Gurrola MD [address] [facility] [place] [address] PCP - General Specialist 08/12/19 documented as of this encounter
--- OUTSIDE RECORDS SUMMARY | 2024-11-24 14:32 | XMS_ITS | Encounter Summary ---
Author Organization [facility] Address [address] [place] [address] Care Team Providers Care Electrical Apprentice Name Role Phone Areli Gurrola MD Primary Care Provider Encounter Details Date Type Department Care Team (Latest Contact Info) Description 02/21/2000 Outpatient Historical [facility] [address] [place] [address] Trell York MD [address] [place] [phone] Stricture of cervix (Primary Dx); Lumbago Social History Tobacco Use Types Packs/Day Years Used Date Smoking Tobacco: Never Assessed Comments Unknown Sex and Gender Information Value Date Recorded Sex Assigned at Not on file Legal Sex Female 3:40 AM BUSINESS SUPPORT COORDINATOR Gender Identity Not on file Sexual [...] documented as of this encounter Care Teams Electrical Apprentice Relationship Specialty Start Date End Date Areli Gurrola MD [address] [place] [address] PCP - General Specialist 08/12/19 documented as of this encounter
--- OUTSIDE RECORDS SUMMARY | 2024-11-24 14:32 | XMS_ITS | Encounter Summary ---
Author Organization [facility] Address [address] [place] [address] Care Team Providers Care Analytics Senior Manager Name Role Phone Areli Gurrola MD Primary Care Provider Encounter Details Date Type Department Care Team (Latest Contact Info) Description 07/20/1999 Outpatient Historical [facility] Joseph Ramos MD [address] [place] [address] Pain in joint, hand (Primary Dx) Social History Tobacco Use Types Packs/Day Years Used Date Smoking Tobacco: Never Assessed Comments Unknown Sex and Gender Information Value Date Recorded Sex Assigned at Not on file Legal Sex Female 3:40 AM SKEET OPERATOR Gender Identity Not on file Sexual [...] documented as of this encounter Care Teams Analytics Senior Manager Relationship Specialty Start Date End Date Areli Gurrola MD [address] [facility] [place] [address] PCP - General Specialist 08/12/19 documented as of this encounter
--- OUTSIDE RECORDS SUMMARY | 2024-11-24 14:32 | XMS_ITS | Encounter Summary ---
Author Organization [facility] Address [address] [place] [address] Care Team Providers Care Heavy Equipment Operator/Paver Name Role Phone Areli Gurrola MD Primary Care Provider Encounter Details Date Type Department Care Team (Latest Contact Info) Description 11/13/2000 Outpatient Historical [facility] [address] [place] [address] Terll York MD [address] [place] [phone] Insomnia, unspecified (Primary Dx); Lumbago Social History Tobacco Use Types Packs/Day Years Used Date Smoking Tobacco: Never Assessed Comments Unknown Sex and Gender Information Value Date Recorded Sex Assigned at Not on file Legal Sex Female 3: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
--- OUTSIDE RECORDS SUMMARY | 2024-11-24 14:32 | XMS_ITS | Encounter Summary ---
Author Organization [facility] Address [address] [place] [address] Care Team Providers Care Wanigan Clerk Name Role Phone Areli Gurrola MD Primary Care Provider Encounter Details Date Type Department Care Team (Late st Contact Info) Description 05/23/1999 Outpatient Historical [facility] [address] [facility] [place] [address] Trell Hines MD [address] [place] [address] Carpal tunnel syndrome (Primary Dx) Social History Tobacco Use Types Packs/Day Years Used Date Smoking Tobacco: Never Assessed Comments Unknown Sex and Gender Information Value Date Recorded Sex Assigned at Not on file Legal Sex Female 3:40 AM PROMOTIONAL MARKETING ANALYST Gender Identity Not on file Sexual [...] documented as of this encounter Care Teams Wanigan Clerk Relationship Specialty Start Date End Date Areli Gurrola MD [address] [place] [address] PCP - General Specialist 08/12/19 documented as of this encounter
--- OUTSIDE RECORDS SUMMARY | 2024-11-24 14:32 | XMS_ITS | Encounter Summary ---
Author Organization [facility] Address [address] [place] [address] Care Team Providers Care Grain Mixer Name Role Phone Areli Gurrola MD Primary Care Provider Encounter Details Date Type Department Care Team (Latest Contact Info) Description 04/23/2000 Outpatient Historical [facility] [address] [place] [address] Trell York MD [address] [place] [phone] Cervicalgia (Primary Dx); Other convulsions Social History Tobacco Use Types Packs/Day Years Used Date Smoking Tobacco: Never Assessed Comments Unknown Sex and Gender Information Value Date Recorded Sex Assigned at Not on file Legal Sex Female 3:40 AM MASCARA MOLDER Gender Identity Not on file Sexual Orientation Not on file documented as of this encounter Plan of Treatment Not on file documented as of this encounter Visit Diagnoses Diagnosis Cervicalgia- Primary Other convulsions documented in this encounter Additional Health Concerns Infection Onset Date Last Indicated Resolved Time R/O COVID-19 01/31/2020 01/31/2020 02/02/2020 10:3 2 AM CDT documented as of this encounter Care Teams Grain Mixer Relationship Specialty Start Date End Date Areli Gurrola MD [address] [facility] [place] [address] PCP - General Specialist 08/12/19 documented as of this encounter
--- OUTSIDE RECORDS SUMMARY | 2024-11-24 14:32 | XMS_ITS | Encounter Summary ---
Author Organization [facility] Address [address] [place] [address] Care Team Providers Care College Or University Faculty Member Name Role Phone Areli Gurrola MD Primary Care Provider Encounter Details Date Type Department Care Team (Latest Contact Info) Description 10/08/2000 Outpatient Historical [facility] [address] [place] [address] Trell York MD [address] [place] [phone] Sprain and strain of unspecified site of knee and leg (Primary Dx) Social History Tobacco Use Types Packs/Day Years Used Date Smoking Tobacco: Never Assessed Comments Unknown Sex and Gender Information Value Date Recorded Sex Assigned at Not on file Legal Sex Female 3:40 AM BED LASTER Gender Identity Not on file Sexual Orientation [...] documented as of this encounter Care Teams College Or University Faculty Member Relationship Specialty Start Date End Date Areli Gurrola MD [address] [facility] [place] [address] PCP - General Specialist 08/12/19 documented as of this encounter
--- OUTSIDE RECORDS SUMMARY | 2024-11-24 14:32 | XMS_ITS | Encounter Summary ---
Author Organization [facility] Address [address] [place] [address] Care Team Providers Care Commercial Development Manager Name Role Phone Areli Gurrola MD Primary Care Provider Encounter Details Date Type Department Care Team (Latest Contact Info) Description 04/25/2001 Outpatient Historical [facility] [address] [place] [address] Trell York MD [address] [place] [phone] ESOPHAGITIS, UNSPECIFIED (Primary Dx); LUMBAGO; SEBACEOUS CYST Social History Tobacco Use Types Packs/Day Years Used Date Smoking Tobacco: Never Assessed Comments Unknown Sex and Gender Information Value Date Recorded Sex Assigned at Not on file Legal Sex Female 3:40 AM WEEDER Gender Identity Not on file Sexual Orientation [...] documented as of this encounter Care Teams Commercial Development Manager Relationship Specialty Start Date End Date Areli Gurrola MD [address] [place] [address] PCP - General Specialist 08/12/19 documented as of this encounter
--- OUTSIDE RECORDS SUMMARY | 2024-11-24 14:32 | XMS_ITS | Encounter Summary ---
Author Organization [facility] Address [address] [place] [address] Care Team Providers Care Silk Weaver Name Role Phone Areli Gurrola MD Primary Care Provider Encounter Details Date Type Department Care Team (Latest Contact Info) Description 03/14/2000 Outpatient Historical [facility] [address] [place] [address] Trell York MD [address] [place] [phone] Unspecified disorder of female genital organs (Primary Dx); Lumbago Social History Tobacco Use Types Packs/Day Years Used Date Smoking Tobacco: Never Assessed Comments Unknown Sex and Gender Information Value Date Recorded Sex Assigned at Not on file Legal Sex Female 3:40 AM PARAMEDIC Gender Identity Not on file Sexual Orientation [...] documented as of this encounter Care Teams Silk Weaver Relationship Specialty Start Date End Date Areli Gurrola MD [address] [facility] [place] [place] [address] PCP - General Specialist 08/12/19 documented as of this encounter
--- OUTSIDE RECORDS SUMMARY | 2024-11-24 14:32 | XMS_ITS | Encounter Summary ---
Author Organization [facility] Address [address] [place] [address] Care Team Providers Care It Application Development Manager Name Role Phone Areli Gurrola MD Primary Care Provider Encounter Details Date Type Department Care Team (Latest Contact Info) Description 05/24/1999 Outpatient Historical [facility] [address] [place] [address] Trell York MD [address] [place] [phone] Edema (Primary Dx); Lumbago Social History Tobacco Use Types Packs/Day Years Used Date Smoking Tobacco: Never Assessed Comments Unknown Sex and Gender Information Value Date Recorded Sex Assigned at Not on file Legal Sex Female 3:40 AM MILK DRIVER Gender Identity Not on file Sexual [...] as of this encounter Care Teams It Application Development Manager Relationship Specialty Start Date End Date Areli Gurrola MD [address] [facility] [place] [address] PCP - General Specialist 08/12/19 documented as of this encounter
--- OUTSIDE RECORDS SUMMARY | 2024-11-24 14:32 | XMS_ITS | Encounter Summary ---
Author Organization [facility] Address [address] [place] [address] Care Team Providers Care Coding Spec Name Role Phone Areli Gurrola MD Primary Care Provider Encounter Details Date Type Department Care Team (Latest Contact Info) Description 01/07/2001 Outpatient Historical [facility] [address] [place] [address] Trell York MD [address] [place] [phone] Unspecified disorder of female genital organs (Primary Dx); Cervicalgia; Lumbago Social History Tobacco Use Types Packs/Day Years Used Date Smoking Tobacco: Never Assessed Comments Unknown Sex and Gender Information Value Date Recorded Sex Assigned at Not on file Legal Sex Female 3:40 AM HOPPER OPERATOR Gender Identity Not on file Sexual [...] documented as of this encounter Care Teams Coding Spec Relationship Specialty Start Date End Date Areli Gurrola MD [address] [place] [address] PCP - General Specialist 08/12/19 documented as of this encounter
--- OUTSIDE RECORDS SUMMARY | 2024-11-24 14:32 | XMS_ITS | Encounter Summary ---
Author Organization [facility] Address [address] [facility] Attn: [place] [address] Care Team Providers Care Mail Carriers Supervisor Name Role Phone Areli Gurrola MD [...] on file Legal Sex Female 3:40 AM A AND P TECHNICIAN Gender Identity Not on file Sexual Orientation Not on file documented as of this encounter Plan of Treatment Not on file documented as of this encounter Visit Diagnoses Not on filedocumented in this encounter Additional Health Concerns Infection Onset Date Last Indicated Resolved Time R/O COVID-19 01/31/2020 01/31/2020 02/02/2020 10:3 2 AM CDT documented as of this encounter Care Teams Mail Carriers Supervisor Relationship Specialty Start Date End Date Areli Gurrola MD [address] [facility] [place] [address] PCP - General Specialist 08/12/19 documented as of this encounter
--- OUTSIDE RECORDS SUMMARY | 2024-11-24 14:32 | XMS_ITS | Encounter Summary ---
Author Organization [facility] Address [address] [place] [address] Care Team Providers Care Optical Instrument Inspector Name Role Phone Areli Gurrola MD Primary Care Provider Encounter Details Date Type Department Care Team (Latest Contact Info) Description 06/08/1999 Outpatient Historical [facility] [address] [place] [address] Trell York MD [address] [place] [phone] Carpal tunnel syndrome (Primary Dx); Sprain of neck; Obesity, unspecified Social History Tobacco Use Types Packs/Day Years Used Date Smoking Tobacco: Never Assessed Comments Unknown Sex and Gender Information Value Date Recorded Sex Assigned at Not on file Legal Sex Female 3:40 AM PNEUMATIC TUBE FITTER Gender Identity Not on file Sexual [...] documented as of this encounter Care Teams Optical Instrument Inspector Relationship Specialty Start Date End Date Areli Gurrola MD [address] [facility] [place] [address] PCP - General Specialist 08/12/19 documented as of this encounter
--- OUTSIDE RECORDS SUMMARY | 2024-11-24 14:32 | XMS_ITS | Encounter Summary ---
Author Organization [facility] Address [address] [place] [address] Care Team Providers Care Microfilm Equipment Inspector Name Role Phone Areli Gurrola MD Primary Care Provider Encounter Details Date Type Department Care Team (Latest Contact Info) Description 12/05/2000 [facility] [address] [place] [address] Trell York MD [address] [place] [phone] Lumbago (Primary Dx); Cervicalgia; Pain in joint, pelvic region and thigh Social History Tobacco Use Types Packs/Day Years Used Date Smoking Tobacco: Never Assessed Comments Unknown Sex and Gender Information Value Date Recorded Sex Assigned at Not on file Legal Sex Female 3:40 AM TAKER OUT Gender Identity Not on file Sexual Orientation [...] documented as of this encounter Care Teams Microfilm Equipment Inspector Relationship Specialty Start Date End Date Areli Gurrola MD [address] [place] [address] PCP - General Specialist 08/12/19 documented as of this encounter
--- OUTSIDE RECORDS SUMMARY | 2024-11-24 14:32 | XMS_ITS | Encounter Summary ---
Author Organization [facility] Address [address] [place] [address] Care Team Providers Care Supervisor Hydrochloric Area Name Role Phone Areli Gurrola MD Primary Care Provider Encounter Details Date Type Department Care Team (Latest Contact Info) Description 05/09/1999 Outpatient Historical [facility] [address] [place] [address] Trell York MD [address] [place] [phone] Cervical spinal stenosis (Primary Dx); Contusion of elbow Social History Tobacco Use Types Packs/Day Years Used Date Smoking Tobacco: Never Assessed Comments Unknown Sex and Gender Information Value Date Recorded Sex Assigned at Not on file Legal Sex Female 3:40 AM CLEAT THROWER Gender Identity Not on file Sexual Orientation [...] as of this encounter Care Teams Supervisor Hydrochloric Area Relationship Specialty Start Date End Date Areli Gurrola MD [address] [place] [address] PCP - General Specialist 08/12/19 documented as of this encounter
--- OUTSIDE RECORDS SUMMARY | 2024-11-24 14:32 | XMS_ITS | Encounter Summary ---
Author Organization [facility] Address [address] [place] [address] Care Team Providers Care Transcribing Operator Head Name Role Phone Areli Gurrola MD Primary Care Provider Encounter Details Date Type Department Care Team (Latest Contact Info) Description 08/09/1999 Outpatient Historical [facility] [address] [place] [address] Trell York MD [address] [place] [phone] Stricture of cervix (Primary Dx) Social History Tobacco Use Types Packs/Day Years Used Date Smoking Tobacco: Never Assessed Comments Unknown Sex and Gender Information Value Date Recorded Sex Assigned at Not on file Legal Sex Female 3:40 AM INSTRUCTOR PHYSICAL Gender Identity Not on file Sexual Orientation [...] documented as of this encounter Care Teams Transcribing Operator Head Relationship Specialty Start Date End Date Areli Gurrola MD [address] [facility] [place] [address] PCP - General Specialist 08/12/19 documented as of this encounter
--- OUTSIDE RECORDS SUMMARY | 2024-11-24 14:32 | XMS_ITS | Encounter Summary ---
Author Organization [facility] Address [address] [place] [address] Care Team Providers Care Laundry Agent Name Role Phone Areli Gurrola MD Primary Care Provider Encounter Details Date Type Department Care Team (Latest Contact Info) Description 06/08/1999 Outpatient Historical [facility] [place], Trell Pascual MD [address] [place] [address] Obesity, unspecified (Primary Dx); Encounter for long-term (current) use of other medications Social History Tobacco Use Types Packs/Day Years Used Date Smoking Tobacco: Never Assessed Comments Unknown Sex and Gender Information Value Date Recorded Sex Assigned at Not on file Legal Sex Female 3:40 AM PROBATION MANAGER Gender Identity Not on file Sexual [...] documented as of this encounter Care Teams Laundry Agent Relationship Specialty Start Date End Date Areli Gurrola MD [address] [facility] [place] [address] PCP - General Specialist 08/12/19 documented as of this encounter
--- OUTSIDE RECORDS SUMMARY | 2024-11-24 14:32 | XMS_ITS | Encounter Summary ---
Author Organization [facility] Address [address] [place] [address] Care Team Providers Care Integrity Director Name Role Phone Areli Gurrola MD Primary Care Provider Encounter Details Date Type Department Care Team (Latest Contact Info) Description 03/27/2001 Outpatient Historical [facility] [address] [place] [address] Trell York MD [address] [place] [phone] CERVICALGIA (Primary Dx); NEUROTIC DEPRESSION; LUMBAGO Social History Tobacco Use Types Packs/Day Years Used Date Smoking Tobacco: Never Assessed Comments Unknown Sex and Gender Information Value Date Recorded Sex Assigned at Not on file Legal Sex Female 3:40 AM RESPIRATORY CLINICIAN Gender Identity Not on file Sexual Orientation [...] documented as of this encounter Care Teams Integrity Director Relationship Specialty Start Date End Date Areli Gurrola MD [address] [place] [address] PCP - General Specialist 08/12/19 documented as of this encounter
--- OUTSIDE RECORDS SUMMARY | 2024-11-24 14:32 | XMS_ITS | Encounter Summary ---
Author Organization [facility] Address [address] [place] [address] Care Team Providers Care Sales Representative Graphic Art Name Role Phone Areli Gurrola MD Primary Care Provider Encounter Details Date Type Department Care Team (Latest Contact Info) Description 12/27/1999 Outpatient Historical [facility] [address] [place] [address] Trell York MD [address] [place] [phone] Migraine without aura, without mention of intractable migraine without mention of status migrainosus (Primary Dx); Lumbago Social History Tobacco Use Types Packs/Day Years Used Date Smoking Tobacco: Never Assessed Comments Unknown Sex and Gender Information Value Date Recorded Sex Assigned at Not on file Legal Sex Female 3:40 AM VEGETABLE FARM WORKER Gender Identity Not on file Sexual [...] of this encounter Care Teams Sales Representative Graphic Art Relationship Specialty Start Date End Date Areli Gurrola MD [address] [facility] [place] [address] PCP - General Specialist 08/12/19 documented as of this encounter
--- OUTSIDE RECORDS SUMMARY | 2024-11-24 14:32 | XMS_ITS | Encounter Summary ---
Author Organization [facility] Address [address] [place] [address] Care Team Providers Care Information Clerk Cashier Name Role Phone Areli Gurrola MD Primary Care Provider Encounter Details Date Type Department Care Team (Latest Contact Info) Description 07/27/2000 Outpatient Historical [facility] [address] [place] [address] Trell York MD [address] [place] [phone] Unspecified disorder of female genital organs (Primary Dx); Cervicalgia Social History Tobacco Use Types Packs/Day Years Used Date Smoking Tobacco: Never Assessed Comments Unknown Sex and Gender Information Value Date Recorded Sex Assigned at Not on file Legal Sex Female 3:40 AM METAL ENGINEERING PROCESS WORKER Gender Identity Not on file Sexual [...] documented as of this encounter Care Teams Information Clerk Cashier Relationship Specialty Start Date End Date Areli Gurrola MD [address] [place] [address] PCP - General Specialist 08/12/19 documented as of this encounter
--- OUTSIDE RECORDS SUMMARY | 2024-11-24 14:32 | XMS_ITS | Encounter Summary ---
Author Organization [facility] Address [address] [facility] Attn: [place] [address] Care Team Providers Care Fundraising Coordinator Name Role Phone Areli Gurrola MD Primary Care Provider Encounter Details Date Type Department Care Team (Late st Contact Info) Description 06/06/2001 Outpatient Historical [place], Trell Pascual MD [address] [place] [phone] Social History Tobacco Use Types Packs/Day Years Used Date Smoking Tobacco: Never Assessed Comments Unknown Sex and Gender Information Value Date Recorded Sex Assigned at Not on file Legal Sex Female 3:40 AM SECOND HAND Gender Identity Not on file Sexual Orientation Not on file documented as of this encounter Plan of Treatment Not on file documented as of this encounter Visit Diagnoses Not on filedocumented in this encounter Additional Health Concerns Infection Onset Date Last Indicated Resolved Time R/O COVID-19 01/31/2020 01/31/2020 02/02/2020 10:3 2 AM CDT documented as of this encounter Care Teams Fundraising Coordinator Relationship Specialty Start Date End Date Areli Gurrola MD [address] [place] [phone] PCP - General Specialist 08/12/19 documented as of this encounter
--- OUTSIDE RECORDS SUMMARY | 2024-11-24 14:32 | XMS_ITS | Encounter Summary ---
Author Organization [facility] Address [address] [place] [address] Care Team Providers Care Line Tester Name Role Phone Areli Gurrola MD Primary Care Provider Encounter Details Date Type Department Care Team (Latest Contact Info) Description 01/30/2000 Outpatient Historical [facility] [address] [place] [address] Trell York MD [address] [place] [phone] Lumbago (Primary Dx) Social History Tobacco Use Types Packs/Day Years Used Date Smoking Tobacco: Never Assessed Comments Unknown Sex and Gender Information Value Date Recorded Sex Assigned at Not on file Legal Sex Female 3:40 AM BRICK YARD HAND Gender Identity Not on file Sexual Orientation Not on file documented as of this encounter Plan of Treatment Not on file documented as of this encounter Visit Diagnoses Diagnosis Lumbago- Primary documented in this encounter Additional Health Concerns Infection Onset Date Last Indicated Resolved Time R/O COVID-19 01/31/2020 01/31/2020 02/02/2020 10:3 2 AM CDT documented as of this encounter Care Teams Line Tester Relationship Specialty Start Date End Date Areli Gurrola MD [address] [facility] [place] [address] PCP - General Specialist 08/12/19 documented as of this encounter
--- OUTSIDE RECORDS SUMMARY | 2024-11-24 14:33 | XMS_ITS | Encounter Summary ---
Author Organization [facility] Address [address] [place] [address] Care Team Providers Care Device Sales Consultant Name Role Phone Areli Gurrola MD Primary Care Provider Encounter Details Date Type Department Care Team (Late st Contact Info) Description 03/25/1999 Outpatient Historical [facility] Social History Tobacco Use Types Packs/Day Years Used Date Smoking Tobacco: Never Assessed Comments Unknown Sex and Gender Information Value Date Recorded Sex Assigned at Not on file Legal Sex Female 3:40 AM BEEF SKINNER Gender Identity Not on file Sexual Orientation Not on file documented as of this encounter Plan of Treatment Not on file documented as of this encounter Visit Diagnoses Not on filedocumented in this encounter Additional Health Concerns Infection Onset Date Last Indicated Resolved Time R/O COVID-19 01/31/2020 01/31/2020 02/02/2020 10:3 2 AM CDT documented as of this encounter Care Teams Device Sales Consultant Relationship Specialty Start Date End Date Areli Gurrola MD [address] [place] [address] PCP - General Specialist 08/12/19 documented as of this encounter
--- OUTSIDE RECORDS SUMMARY | 2024-11-24 14:33 | XMS_ITS | Encounter Summary ---
Author Organization [facility] Address [address] [place] [address] Care Team Providers Care Surgical Sales Representative Name Role Phone Areli Gurrola MD Primary Care Provider Encounter Details Date Type Department Care Team (Latest Contact Info) Description 09/08/1999 Outpatient Historical [facility] [address] [place] [address] Trell York MD [address] [place] [phone] Lumbago (Primary Dx); Obesity, unspecified Social History Tobacco Use Types Packs/Day Years Used Date Smoking Tobacco: Never Assessed Comments Unknown Sex and Gender Information Value Date Recorded Sex Assigned at Not on file Legal Sex Female 3:40 AM EDUCATION RN Gender Identity Not on file Sexual [...] as of this encounter Care Teams Surgical Sales Representative Relationship Specialty Start Date End Date Areli Gurrola MD [address] [facility] [place] [address] PCP - General Specialist 08/12/19 documented as of this encounter
--- OUTSIDE RECORDS SUMMARY | 2024-11-24 14:33 | XMS_ITS | Encounter Summary ---
Author Organization [facility] Address [address] [facility] Attn: [place] [address] Care Team Providers Care Under Ground Miner Name Role Phone Areli Gurrola MD Primary [...] file Legal Sex Female 3:40 AM HEAD REFRIGERATION ENGINEER Gender Identity Not on file Sexual Orientation Not on file documented as of this encounter Plan of Treatment Not on file documented as of this encounter Visit Diagnoses Not on filedocumented in this encounter Additional Health Concerns Infection Onset Date Last Indicated Resolved Time R/O COVID-19 01/31/2020 01/31/2020 02/02/2020 10:3 2 AM CDT documented as of this encounter Care Teams Under Ground Miner Relationship Specialty Start Date End Date Areli Gurrola MD [address] [facility] [place] [address] PCP - General Specialist 08/12/19 documented as of this encounter
--- OUTSIDE RECORDS SUMMARY | 2024-11-24 14:33 | XMS_ITS | Encounter Summary ---
Author Organization [facility] Address [address] [place] [address] Care Team Providers Care Head Sugar Reprocess Operator Name Role Phone Areli Gurrola MD Primary Care Provider Encounter Details Date Type Department Care Team (Late st Contact Info) Description 04/05/1999 Outpatient Historical [facility] Social History Tobacco Use Types Packs/Day Years Used Date Smoking Tobacco: Never Assessed Comments Unknown Sex and Gender Information Value Date Recorded Sex Assigned at Not on file Legal Sex Female 3:40 AM PRECINCT CAPTAIN Gender Identity Not on file Sexual Orientation Not on file documented as of this encounter Plan of Treatment Not on file documented as of this encounter Visit Diagnoses Not on filedocumented in this encounter Additional Health Concerns Infection Onset Date Last Indicated Resolved Time R/O COVID-19 01/31/2020 01/31/2020 02/02/2020 10:3 2 AM CDT documented as of this encounter Care Teams Head Sugar Reprocess Operator Relationship Specialty Start Date End Date Areli Gurrola MD [address] [place] [address] PCP - General Specialist 08/12/19 documented as of this encounter
--- OUTSIDE RECORDS SUMMARY | 2024-11-24 14:33 | XMS_ITS | Encounter Summary ---
Author Organization [facility] Address [address] [place] [address] Care Team Providers Care Director Perioperative Name Role Phone Areli Gurrola MD Primary Care Provider Encounter Details Date Type Department Care Team (Latest Contact Info) Description 04/11/2006 Outpatient Historical [facility] [address] [place] [address] Trell York MD [address] [place] [phone] Unspecified Essential Hypertension (Primary Dx); Dysthymic Disorder; Insomnia, Unspecified; Mononeuritis of Unspecified Site Social History Tobacco Use Types Packs/Day Years Used Date Smoking Tobacco: Never Assessed Comments Unknown Sex and Gender Information Value Date Recorded Sex Assigned at Not on file Legal Sex Female 3:40 AM GOLD FRAME ASSEMBLER Gender Identity Not on file Sexual Orientation [...] as of this encounter Care Teams Director Perioperative Relationship Specialty Start Date End Date Areli Gurrola MD [address] [facility] [place] [address] PCP - General Specialist 08/12/19 documented as of this encounter
--- OUTSIDE RECORDS SUMMARY | 2024-11-24 14:33 | XMS_ITS | Encounter Summary ---
Author Organization [facility] Address [address] [facility] Attn: [place] [id number] Care Team Providers Care Computer Drafter Name Role Phone Areli Gurrola MD Primary Care Provider Encounter Details Date Type Department Care Team (Late st Contact Info) Description 08/24/1999 Outpatient Historical Joseph Ramos MD [address] [place] [address] Social History Tobacco Use Types Packs/Day Years Used Date Smoking Tobacco: Never Assessed Comments Unknown Sex and Gender Information Value Date Recorded Sex Assigned at Not on file Legal Sex Female 3:40 AM DIESEL POWERPLANT MECHANIC HELPER Gender Identity Not on file Sexual Orientation Not on file documented as of this encounter Plan of Treatment Not on file documented as of this encounter Visit Diagnoses Not on filedocumented in this encounter Additional Health Concerns Infection Onset Date Last Indicated Resolved Time R/O COVID-19 01/31/2020 01/31/2020 02/02/2020 10:3 2 AM CDT documented as of this encounter Care Teams Computer Drafter Relationship Specialty Start Date End Date Areli Gurrola MD [address] [facility] [place] [address] PCP - General Specialist 08/12/19 documented as of this encounter
--- OUTSIDE RECORDS SUMMARY | 2024-11-24 14:33 | XMS_ITS | Encounter Summary ---
Author Organization [facility] Address [address] [place] [address] Care Team Providers Care Envelope Maker Name Role Phone Areli Gurrola MD Primary Care Provider Encounter Details Date Type Department Care Team (Latest Contact Info) Description 06/22/2003 Outpatient Historical [facility] [address] [place] [address] Trell York MD [address] [place] [phone] CHEST PAIN NOS (Primary Dx); ABN INVOLUN MOVEMENT NEC; CERVICALGIA Social History Tobacco Use Types Packs/Day Years Used Date Smoking Tobacco: Never Assessed Comments Unknown Sex and Gender Information Value Date Recorded Sex Assigned at Not on file Legal Sex Female 3:40 AM SQUAD BOSS Gender Identity Not on file Sexual Orientation [...] documented as of this encounter Care Teams Envelope Maker Relationship Specialty Start Date End Date Areli Gurrola MD [address] [facility] [place] [address] PCP - General Specialist 08/12/19 documented as of this encounter
--- OUTSIDE RECORDS SUMMARY | 2024-11-24 14:33 | XMS_ITS | Encounter Summary ---
Author Organization [facility] Address [address] [place] [address] Care Team Providers Care Print And Pattern Designer Name Role Phone Areli Gurrola MD Primary Care Provider Encounter Details Date Type Department Care Team (Late st Contact Info) Description 03/18/1999 Outpatient Historical [facility] Social History Tobacco Use Types Packs/Day Years Used Date Smoking Tobacco: Never Assessed Comments Unknown Sex and Gender Information Value Date Recorded Sex Assigned at Not on file Legal Sex Female 3:40 AM WATER SYSTEMS ENGINEER Gender Identity Not on file Sexual Orientation Not on file documented as of this encounter Plan of Treatment Not on file documented as of this encounter Visit Diagnoses Not on filedocumented in this encounter Additional Health Concerns Infection Onset Date Last Indicated Resolved Time R/O COVID-19 01/31/2020 01/31/2020 02/02/2020 10:3 2 AM CDT documented as of this encounter Care Teams Print And Pattern Designer Relationship Specialty Start Date End Date Areli Gurrola MD [address] [place] [address] PCP - General Specialist 08/12/19 documented as of this encounter
--- OUTSIDE RECORDS SUMMARY | 2024-11-24 14:33 | XMS_ITS | Encounter Summary ---
Author Organization [facility] Address [address] [place] [address] Care Team Providers Care Dough Catcher Name Role Phone Areli Gurrola MD Primary Care Provider Encounter Details Date Type Department Care Team (Latest Contact Info) Description 11/28/1999 Outpatient Historical [facility] [address] [place] [address] Trell York MD [address] [place] [phone] Lumbago (Primary Dx) Social History Tobacco Use Types Packs/Day Years Used Date Smoking Tobacco: Never Assessed Comments Unknown Sex and Gender Information Value Date Recorded Sex Assigned at Not on file Legal Sex Female 3:40 AM LATHE OPERATOR CONTACT LENS Gender Identity Not on file Sexual Orientation Not on file documented as of this encounter Plan of Treatment Not on file documented as of this encounter Visit Diagnoses Diagnosis Lumbago- Primary documented in this encounter Additional Health Concerns Infection Onset Date Last Indicated Resolved Time R/O COVID-19 01/31/2020 01/31/2020 02/02/2020 10:3 2 AM CDT documented as of this encounter Care Teams Dough Catcher Relationship Specialty Start Date End Date Areli Gurrola MD [address] [facility] [place] [address] PCP - General Specialist 08/12/19 documented as of this encounter
--- OUTSIDE RECORDS SUMMARY | 2024-11-24 14:33 | XMS_ITS | Encounter Summary ---
Author Organization [facility] Address [address] [place] [address] Care Team Providers Care Garbage Truck Driver Name Role Phone Areli Gurrola MD Primary Care Provider Encounter Details Date Type Department Care Team (Latest Contact Info) Description 05/20/[address] [facility] [address] [place] [address] Trell York MD [address] [place] [phone] ACUTE BRONCHITIS (Primary Dx) Social History Tobacco Use Types Packs/Day Years Used Date Smoking Tobacco: Never Assessed Comments Unknown Sex and Gender Information Value Date Recorded Sex Assigned at Not on file Legal Sex Female 3:40 AM CERTIFIED FLEX ENDOSCOPE REPROCESSOR Gender Identity Not on file Sexual Orientation Not on file documented as of this encounter Plan of Treatment Not on file documented as of this encounter Visit Diagnoses Diagnosis Acute bronchitis- Primary documented in this encounter Additional Health Concerns Infection Onset Date Last Indicated Resolved Time R/O COVID-19 01/31/2020 01/31/2020 02/02/2020 10:3 2 AM CDT documented as of this encounter Care Teams Garbage Truck Driver Relationship Specialty Start Date End Date Areli Gurrola MD [address] [facility] [place] [address] PCP - General Specialist 08/12/19 documented as of this encounter
--- OUTSIDE RECORDS SUMMARY | 2024-11-24 14:33 | XMS_ITS | Encounter Summary ---
Author Organization [facility] Address [address] [place] [address] Care Team Providers Care Mold Washer Name Role Phone Areli Gurrola MD Primary Care Provider Encounter Details Date Type Department Care Team (Latest Contact Info) Description 03/06/2005 Outpatient Historical [facility] [address] [place] [address] Trell York MD [address] [place] [phone] DENTAL DISORDER NOS (Primary Dx); CERVICALGIA; LUMBAGO; DYSTHYMIC DISORDER Social History Tobacco Use Types Packs/Day Years Used Date Smoking Tobacco: Never Assessed Comments Unknown Sex and Gender Information Value Date Recorded Sex Assigned at Not on file Legal Sex Female 3:40 AM CENTERLESS GRINDING MACHINE ADJUSTER Gender Identity Not on file Sexual [...] documented as of this encounter Care Teams Mold Washer Relationship Specialty Start Date End Date Areli Gurrola MD [address] [facility] [place] [address] PCP - General Specialist 08/12/19 documented as of this encounter
--- OUTSIDE RECORDS SUMMARY | 2024-11-24 14:33 | XMS_ITS | Encounter Summary ---
Author Organization [facility] Address [address] [place] [address] Care Team Providers Care Embedded Software Test Engineer Name Role Phone Areli Gurrola MD Primary Care Provider Encounter Details Date Type Department Care Team (Latest Contact Info) Description 06/26/2003 Outpatient Historical [facility] [address] [place] [address] Jim Matos MD [address] [address] [place] [address] PRECORDIAL PAIN (Primary Dx) Social History Tobacco Use Types Packs/Day Years Used Date Smoking Tobacco: Never Assessed Comments Unknown Sex and Gender Information Value Date Recorded Sex Assigned at Not on file Legal Sex Female 3:40 AM STATION INSTALLER AND REPAIRER Gender Identity Not on file Sexual Orientation Not on file documented as of this encounter Plan of Treatment Not on file documented as of this encounter Visit Diagnoses Diagnosis Precordial pain- Primary documented in this encounter Additional Health Concerns Infection Onset Date Last Indicated Resolved Time R/O COVID-19 01/31/2020 01/31/2020 02/02/2020 10:3 2 AM CDT documented as of this encounter Care Teams Embedded Software Test Engineer Relationship Specialty Start Date End Date Areli Gurrola MD [address] [facility] [place] [address] PCP - General Specialist 08/12/19 documented as of this encounter
--- OUTSIDE RECORDS SUMMARY | 2024-11-24 14:33 | XMS_ITS | Encounter Summary ---
Author Organization [facility] Address [address] [place] [address] Care Team Providers Care German Instructor Name Role Phone Areli Gurrola MD Primary Care Provider Encounter Details Date Type Department Care Team (Latest Contact Info) Description 09/29/[address] [facility] [address] [place] [address] Trell York MD [address] [place] [phone] Obesity, unspecified (Primary Dx); Lumbago Social History Tobacco Use Types Packs/Day Years Used Date Smoking Tobacco: Never Assessed Comments Unknown Sex and Gender Information Value Date Recorded Sex Assigned at Not on file Legal Sex Female 3:40 AM FIELD HOCKEY COACH Gender Identity Not on [...] documented as of this encounter Care Teams German Instructor Relationship Specialty Start Date End Date Areli Gurrola MD [address] [facility] [place] [address] PCP - General Specialist 08/12/19 documented as of this encounter
--- OUTSIDE RECORDS SUMMARY | 2024-11-24 14:33 | XMS_ITS | Encounter Summary ---
Author Organization [facility] Address [address] [place] [address] Care Team Providers Care Brand Manager Name Role Phone Areli Gurrola MD Primary Care Provider Encounter Details Date Type Department Care Team (Latest Contact Info) Description 10/27/1999 Outpatient Historical [facility] [address] [place] [address] Trell York MD [address] [place] [phone] Lumbago (Primary Dx) Social History Tobacco Use Types Packs/Day Years Used Date Smoking Tobacco: Never Assessed Comments Unknown Sex and Gender Information Value Date Recorded Sex Assigned at Not on file Legal Sex Female 3:40 AM ENVIRONMENTAL ECONOMIST Gender Identity Not on file Sexual Orientation Not on file documented as of this encounter Plan of Treatment Not on file documented as of this encounter Visit Diagnoses Diagnosis Lumbago- Primary documented in this encounter Additional Health Concerns Infection Onset Date Last Indicated Resolved Time R/O COVID-19 01/31/2020 01/31/2020 02/02/2020 10:3 2 AM CDT documented as of this encounter Care Teams Brand Manager Relationship Specialty Start Date End Date Areli Gurrola MD [address] [place] [address] PCP - General Specialist 08/12/19 documented as of this encounter
--- OUTSIDE RECORDS SUMMARY | 2024-11-24 14:33 | XMS_ITS | Encounter Summary ---
Author Organization [facility] Address [address] [place] [address] Care Team Providers Care Chain Maker Hand Name Role Phone Areli Gurrola MD Primary Care Provider Encounter Details Date Type Department Care Team (Late st Contact Info) Description 05/03/1999 Outpatient Historical [facility] [place], Gibran Lynn MD [address] [facility] [address] [place] [address] Cramp of limb (Primary Dx) Social History Tobacco Use Types Packs/Day Years Used Date Smoking Tobacco: Never Assessed Comments Unknown Sex and Gender Information Value Date Recorded Sex Assigned at Not on file Legal Sex Female 3:40 AM PEN MAKER Gender Identity Not on file Sexual [...] documented as of this encounter Care Teams Chain Maker Hand Relationship Specialty Start Date End Date Areli Gurrola MD [address] [place] [address] PCP - General Specialist 08/12/19 documented as of this encounter
--- OUTSIDE RECORDS SUMMARY | 2024-11-24 14:33 | XMS_ITS | Encounter Summary ---
Author Organization [facility] Address [address] [place] [address] Care Team Providers Care Suction Roller Name Role Phone Areli Gurrola MD Primary Care Provider Encounter Details Date Type Department Care Team (Latest Contact Info) Description 03/23/1999 Outpatient [facility] [address] [place] [address] Alumno, Gibran Lynn MD [address] [place] [address] Unspecified viral infection, in conditions classified elsewhere and of unspecified site (Primary Dx); Sprain and strain of other specified sites of shoulder and upper arm; Tobacco use disorder Social History Tobacco Use Types Packs/Day Years Used Date Smoking Tobacco: Never Assessed Comments Unknown Sex and Gender Information Value Date Recorded Sex Assigned at Not on file Legal Sex Female 3:40 AM OBSERVER HELPER Gender Identity Not on file Sexual [...] documented as of this encounter Care Teams Suction Roller Relationship Specialty Start Date End Date Areli Gurrola MD [address] [place] [address] PCP - General Specialist 08/12/19 documented as of this encounter
--- OUTSIDE RECORDS SUMMARY | 2024-11-24 14:33 | XMS_ITS | Clinical Summary ---
Author Organization [facility] Address [address] [place] [address] Care Team Providers Care Process Manager Name Role Phone Areli Gurrola MD [...] on file Legal Sex Female 3:40 AM MANDARIN TEACHER Gender Identity Not on file Sexual [...] 6 MONTHS 02/19/2020 08/19/2019 INFLUENZA VACCINE (#1) 2024 COLORECTAL SCREENING 02/16/2026 02/17/2016 Colorectal Cancer Screening 02/16/2026 DTAP/TDAP/TD VACCINES (2 - T d or Tdap) 03/15/2030 03/15/2020, 11/07/1997, 03/03/1997 Insurance [facility] DUAL COMPLETE [place] [address] MEDICAID [place] Advance Directives For more information, please contact: [phone] * Full Code (Latest Code Status on File) Date Activated Date Inactivated Comments 02/17/2016 12:44 PM 02/17/2016 4:46 PM Care Teams Process Manager Relationship Specialty Start Date End Date Areli Gurrola MD [address] [place] [phone] PCP - General Specialist 08/12/19
--- OUTSIDE RECORDS SUMMARY | 2024-11-24 14:33 | XMS_ITS | Encounter Summary ---
Author Organization [facility] Address [address] [facility] Attn: [place] [address] Care Team Providers Care Beverage Distiller Name Role Phone Areli Gurrola MD Primary Care Provider Encounter Details Date Type Department Care Team (Late st Contact Info) Description 08/19/1999 Outpatient Historical Joseph Ramos MD [address] [place] [address] Social History Tobacco Use Types Packs/Day Years Used Date Smoking Tobacco: Never Assessed Comments Unknown Sex and Gender Information Value Date Recorded Sex Assigned at Not on file Legal Sex Female 3:40 AM PIANO STRINGER Gender Identity Not on file Sexual Orientation Not on file documented as of this encounter Plan of Treatment Not on file documented as of this encounter Visit Diagnoses Not on filedocumented in this encounter Additional Health Concerns Infection Onset Date Last Indicated Resolved Time R/O COVID-19 01/31/2020 01/31/2020 02/02/2020 10:3 2 AM CDT documented as of this encounter Care Teams Beverage Distiller Relationship Specialty Start Date End Date Areli Gurrola MD [address] [facility] [place] [address] PCP - General Specialist 08/12/19 documented as of this encounter
--- OUTSIDE RECORDS SUMMARY | 2024-11-24 14:33 | XMS_ITS | Encounter Summary ---
Author Organization [facility] Address [address] [place] [address] Care Team Providers Care Clinical Team Manager Name Role Phone Areli Gurrola MD Primary Care Provider Encounter Details Date Type Department Care Team (Latest Contact Info) Description 09/09/2003 Outpatient Historical [facility] [address] [place] [address] Trell York MD [address] [place] [phone] CERVICALGIA (Primary Dx) Social History Tobacco Use Types Packs/Day Years Used Date Smoking Tobacco: Never Assessed Comments Unknown Sex and Gender Information Value Date Recorded Sex Assigned at Not on file Legal Sex Female 3:40 AM BENCH JEWELER Gender Identity Not on file Sexual Orientation Not on file documented as of this encounter Plan of Treatment Not on file documented as of this encounter Visit Diagnoses Diagnosis Cervicalgia- Primary documented in this encounter Additional Health Concerns Infection Onset Date Last Indicated Resolved Time R/O COVID-19 01/31/2020 01/31/2020 02/02/2020 10:3 2 AM CDT documented as of this encounter Care Teams Clinical Team Manager Relationship Specialty Start Date End Date Areli Gurrola MD [address] [facility] [place] [address] PCP - General Specialist 08/12/19 documented as of this encounter
--- OUTSIDE RECORDS SUMMARY | 2024-11-24 14:33 | XMS_ITS | Encounter Summary ---
Author Organization [facility] Address [address] [facility] Attn: [place] [address] Care Team Providers Care Cut Off Saw Tender Metal Name Role Phone Areli Gurrola MD Primary Care Provider Encounter Details Date Type Department Care Team (Late st Contact Info) Description 11/16/1999 Outpatient Historical Joseph Ramos MD [address] [place] [address] Social History Tobacco Use Types Packs/Day Years Used Date Smoking Tobacco: Never Assessed Comments Unknown Sex and Gender Information Value Date Recorded Sex Assigned at Not on file Legal Sex Female 3:40 AM 911 DISPATCHER Gender Identity Not on file Sexual Orientation Not on file documented as of this encounter Plan of Treatment Not on file documented as of this encounter Visit Diagnoses Not on filedocumented in this encounter Additional Health Concerns Infection Onset Date Last Indicated Resolved Time R/O COVID-19 01/31/2020 01/31/2020 02/02/2020 10:3 2 AM CDT documented as of this encounter Care Teams Cut Off Saw Tender Metal Relationship Specialty Start Date End Date Areli Gurrola MD [address] [facility] [place] [address] PCP - General Specialist 08/12/19 documented as of this encounter
--- OUTSIDE RECORDS SUMMARY | 2024-11-24 14:33 | XMS_ITS | Encounter Summary ---
Author Organization [facility] Address [address] [place] [address] Care Team Providers Care Cultural Anthropology Professor Name Role Phone Areli Gurrola MD Primary Care Provider Encounter Details Date Type Department Care Team (Late st Contact Info) Description 04/07/1999 Outpatient Historical [facility] Social History Tobacco Use Types Packs/Day Years Used Date Smoking Tobacco: Never Assessed Comments Unknown Sex and Gender Information Value Date Recorded Sex Assigned at Not on file Legal Sex Female 3:40 AM CROP AND SOIL SCIENTIST Gender Identity Not on file Sexual Orientation Not on file documented as of this encounter Plan of Treatment Not on file documented as of this encounter Visit Diagnoses Not on filedocumented in this encounter Additional Health Concerns Infection Onset Date Last Indicated Resolved Time R/O COVID-19 01/31/2020 01/31/2020 02/02/2020 10:3 2 AM CDT documented as of this encounter Care Teams Cultural Anthropology Professor Relationship Specialty Start Date End Date Areli Gurrola MD [address] [place] [address] PCP - General Specialist 08/12/19 documented as of this encounter
--- OUTSIDE RECORDS SUMMARY | 2024-11-24 14:33 | XMS_ITS | Patient Health Record ---
Author Organization [facility] Address [address] [place] [address] Care Team Providers Care Cloth Tester Quality Name Role Phone Joseph Lewis MD Primary Care Provider Monicaa Zane Grajeda Unavailable [phone] ELROY BOOTHE Unavailable Unavailable Migration, Provider Unavailable Unavailable Reason For Referral No Information Medications Medication SIG (Take, Route, Frequency, Duration) Notes Start Date End Date Status Zolpidem Tartrate 10 MG Tablet Take 1 tablet(s) by mouth at bedtime Oral; Duration: 30 Zolpidem Tartrate 10mg Tablet Take 1 tablet(s) by mouth at bedtime 05/28/2008 Active Mirapex 0.125 MG Tablet Take 1 tablet(s) by mouth tid Oral; Duration: 30 Mirapex 0.125mg Tablet Take 1 tablet(s) by mouth tid 05/28/2008 Active Furosemide 20 MG Oral Tablet Furosemide 20 MG Oral Tablet 10/15/2018 Active Atenolol ; Duration: 0 *please review f or potential update for e-prescription and drug interaction check* Atenolol 05/28/2008 Active Temazepam 15 MG Capsule Take 1-2 capsule(s) by mouth at bedtime prn for insomnia Oral; Duration: 30 Temazepam 15mg Capsules Take 1-2 capsule(s) by mouth at bedtime prn for insomnia 05/28/2008 Active ropinirole 2 MG Oral Tablet ropinirole 2 MG Oral Tablet 10/15/2018 Active Escitalopram 20 MG Oral Tablet Escitalopram 20 MG Oral Tablet 10/15/2018 Active Metoclopramide HCl 10 MG Tablet 1 tab(s) po tid Oral; Duration: 30 Metoclopramide HCl 10mg Tablet 1 tab(s) po tid 05/28/2008 Active Mirtazapine 45 MG Tablet Take 1 tablet(s) by mouth at bedtime Oral; Duration: 30 Mirtazapine 45mg Tablet Take 1 tablet(s) by mouth at bedtime 05/28/2008 Active Furosemide 40 MG Tablet 1 tab(s) daily Oral; Duration: 30 Furosemide 40mg Tablets 1 tab(s) daily 05/28/2008 Active Metformin hydrochloride 500 MG Oral Tablet Metformin hydrochloride 500 MG Oral Tablet 10/15/2018 Active Carisoprodol 350 MG Tablet 1 tab(s) po bid Oral; Duration: 30 Carisoprodol 350mg Tablet 1 tab(s) po bid 05/28/2008 Active ALPRAZolam 0.5 MG Tablet Take 1 tablet(s) by mouth tid Oral; Duration: 30 Alprazolam 0.5mg Tablet Take 1 tablet(s) by mouth tid 05/28/2008 Active oxyCODONE-Acetaminoph en 10-325 MG Tablet Take 1 tablet(s) by mouth 4 time a day prn for pain Oral; Duration: 30 Oxycodone/Acetaminop hen 10mg/325mg Tablet Take 1 tablet(s) by mouth 4 time a day prn for pain 05/28/2008 Active 24 HR Desvenlafaxine 50 MG Extended Release Tablet [Pristiq] 24 HR Desvenlafaxine 50 MG Extended Release Tablet [Pristiq] 10/15/2018 Active quetiapine 50 MG Oral Tablet quetiapine 50 MG Oral Tablet 10/15/2018 Active Spiriva HandiHaler 18 MCG Capsule Inhale contents of 1 capsule(s) by inhaler device by mouth daily thru inhaler. Inhalation; Duration: 30 Spiriva HandiHaler 18mcg/1capsule Capsules for Inhalation Inhale contents of 1 capsule(s) by Rotahaler by mouth daily thru inhaler. 05/28/2008 Active Buprenorphine 8 MG / Naloxone 2 MG Sublingual Tablet Buprenorphine 8 MG / Naloxone 2 MG Sublingual Tablet 10/15/2018 Active Fluticasone Furoate Use 2 spray(s) in each nostril daily; Duration: 30 *please review for potential update for e-prescription and drug interaction check* Fluticasone Furoate 27.5mcg/1spray Nasal [place] Use 2 spray(s) in each nostril daily 05/28/2008 Active Immunizations Vaccine Route Administration Date Status Comme nts Influenza (whole), CPT 68533 Inactive Unknown 10/15/2018 Administered Social History Social History Additional Details Category Social Info Options Details Migrated Social History Migrated Social History Alcoholic beverages? - No, Currently on disability? - Yes, Drug or substance abuse? - No, I am interested in quitting. - No, Marital Status - , Smoking - 1/2 PPD, Smoking status (MU) - Current every day smoker, Working currently? 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) Active confirmed Problem Adjustment disorder with mixed disturbance of emotions AND conduct (85634940) Adjustment disorder with mixed disturbance of emotions and conduct (F43.25) Active confirmed Problem Borderline personality disorder (56984911) Borderline personality disorder (F60.3) Active confirmed Problem History of psychiatric disorder (446632134) Personal history of other mental and behavioral disorders (Z86.59) Active confirmed Problem Alcohol abuse (93673162) Alcohol abuse (F10.10) Active confirmed Problem Major depression, single episode (20322410) Depression, major (F32.9) Active confirmed Problem 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 confirmed Problem Chronic pain (58186741) Chronic pain (G89.29) Active confirmed Problem Polysubstance abuse (413238778) Polysubstance abuse (F19.10) Active confirmed Problem Cannabis abuse (52500313) Cannabis abuse (F12.10) Active confirmed Problem Low back pain (462163793) Low back pain (724.2) 05/28/19 Active confirmed [facility]- Problem Fibromyalgia (123586882) Fibromyalgia (729.1) 05/28/19 Problem resolved confirmed [facility] [place]- Encounters Encounter Location Date Provider Diagnosis Migrated_Facility 0 0 02/02/2024 Provider Migration Migrated_Facility 0 0 02/03/2024 Provider Migration Plan Of Treatment No Information Insurance Providers Payer Name Payer Address Payer Phone Subscriber Number Group Number Insured Name Patient Relationship to Insured Coverage Start Date Coverage End Date [facility] [employer] [address] [address] [place] [address] [id number] Kay Calles Self - patient is the insured [place] Medicaid [address] [place] [address] [id number] Kay Calles Self - patient is the insured Medical (General) History Surgical History Surgery Date(Month/Year) Appendectomy Biopsy of Bone Marrow Carpal tunnel surgery Gallbladder surgery Hysterectomy Laminectomy Tonsillectomy
--- OUTSIDE RECORDS SUMMARY | 2024-11-24 14:33 | XMS_ITS | Encounter Summary ---
Author Organization [facility] Address [address] [place] [address] Care Team Providers Care Premix Concrete Batcher Name Role Phone Areli Gurrola MD Primary Care Provider Encounter Details Date Type Department Care Team (Latest Contact Info) Description 01/11/2004 Outpatient Historical [facility] [address] [place] [address] Trell York MD [address] [place] [phone] CERVICALGIA (Primary Dx); DYSTHYMIC DISORDER Social History Tobacco Use Types Packs/Day Years Used Date Smoking Tobacco: Never Assessed Comments Unknown Sex and Gender Information Value Date Recorded Sex Assigned at Not on file Legal Sex Female 3:40 AM ATMOSPHERIC CHEMIST Gender Identity Not on file Sexual Orientation Not on file documented as of this encounter Plan of Treatment Not on file documented as of this encounter Visit Diagnoses Diagnosis Cervicalgia- Primary Dysthymic disorder documented in this encounter Additional Health Concerns Infection Onset Date Last Indicated Resolved Time R/O COVID-19 01/31/2020 01/31/2020 02/02/2020 10:3 2 AM CDT documented as of this encounter Care Teams Premix Concrete Batcher Relationship Specialty Start Date End Date Areli Gurrola MD [address] [place] [phone] PCP - General Specialist 08/12/19 documented as of this encounter
--- OUTSIDE RECORDS SUMMARY | 2024-11-24 14:33 | XMS_ITS | Encounter Summary ---
Author Organization [facility] Address [address] [place] [address] Care Team Providers Care Oven Roaster Name Role Phone Areli Gurrola MD Primary Care Provider Encounter Details Date Type Department Care Team (Late st Contact Info) Description 03/31/1999 Outpatient Historical [facility] Social History Tobacco Use Types Packs/Day Years Used Date Smoking Tobacco: Never Assessed Comments Unknown Sex and Gender Information Value Date Recorded Sex Assigned at Not on file Legal Sex Female 3:40 AM MAGNETIC TAPE COMPOSER OPERATOR Gender Identity Not on file Sexual Orientation Not on file documented as of this encounter Plan of Treatment Not on file documented as of this encounter Visit Diagnoses Not on filedocumented in this encounter Additional Health Concerns Infection Onset Date Last Indicated Resolved Time R/O COVID-19 01/31/2020 01/31/2020 02/02/2020 10:3 2 AM CDT documented as of this encounter Care Teams Oven Roaster Relationship Specialty Start Date End Date Areli Gurrola MD [address] [place] [address] PCP - General Specialist 08/12/19 documented as of this encounter
--- OUTSIDE RECORDS SUMMARY | 2024-11-24 14:33 | XMS_ITS | Encounter Summary ---
Author Organization [facility] Address [address] [place] [address] Care Team Providers Care Thermal Surfacing Machine Operator Name Role Phone Areli Gurrola MD Primary Care Provider Encounter Details Date Type Department Care Team (Late st Contact Info) Description 04/14/1999 Outpatient Historical [facility] Social History Tobacco Use Types Packs/Day Years Used Date Smoking Tobacco: Never Assessed Comments Unknown Sex and Gender Information Value Date Recorded Sex Assigned at Not on file Legal Sex Female 3:40 AM HOME HOSPICE RN Gender Identity Not on file Sexual Orientation Not on file documented as of this encounter Plan of Treatment Not on file documented as of this encounter Visit Diagnoses Not on filedocumented in this encounter Additional Health Concerns Infection Onset Date Last Indicated Resolved Time R/O COVID-19 01/31/2020 01/31/2020 02/02/2020 10:3 2 AM CDT documented as of this encounter Care Teams Thermal Surfacing Machine Operator Relationship Specialty Start Date End Date Areli Gurrola MD [address] [place] [address] PCP - General Specialist 08/12/19 documented as of this encounter
--- OUTSIDE RECORDS SUMMARY | 2024-11-24 14:33 | XMS_ITS | Encounter Summary ---
Author Organization [facility] Address [address] [facility] Attn: [place] [address] Care Team Providers Care Knitting Machine Operator Helper Name Role Phone Areli Gurrola MD Primary Care Provider Encounter Details Date Type Department Care Team (Late st Contact Info) Description 11/10/1999 Outpatient Historical Joseph Ramos MD [address] [place] [address] Social History Tobacco Use Types Packs/Day Years Used Date Smoking Tobacco: Never Assessed Comments Unknown Sex and Gender Information Value Date Recorded Sex Assigned at Not on file Legal Sex Female 3:40 AM FELL CUTTER Gender Identity Not on file Sexual Orientation Not on file documented as of this encounter Plan of Treatment Not on file documented as of this encounter Visit Diagnoses Not on filedocumented in this encounter Additional Health Concerns Infection Onset Date Last Indicated Resolved Time R/O COVID-19 01/31/2020 01/31/2020 02/02/2020 10:3 2 AM CDT documented as of this encounter Care Teams Knitting Machine Operator Helper Relationship Specialty Start Date End Date Areli Gurrola MD [address] [facility] [place] [address] PCP - General Specialist 08/12/19 documented as of this encounter
--- OUTSIDE RECORDS SUMMARY | 2024-11-24 14:33 | XMS_ITS | Encounter Summary ---
Author Organization [facility] Address [address] [place] [address] Care Team Providers Care Ice Cream Scooper Name Role Phone Areli Gurrola MD Primary Care Provider Encounter Details Date Type Department Care Team (Latest Contact Info) Description 05/03/1999 Outpatient Historical [facility] [address] [place] [address] Alumno, Gibran Lynn MD [address] [place] [address] Cramp of limb (Primary Dx); Contracture of hand joint Social History Tobacco Use Types Packs/Day Years Used Date Smoking Tobacco: Never Assessed Comments Unknown Sex and Gender Information Value Date Recorded Sex Assigned at Not on file Legal Sex Female 3:40 AM COST CONTROL SUPERVISOR Gender Identity Not on file Sexual [...] documented as of this encounter Care Teams Ice Cream Scooper Relationship Specialty Start Date End Date Areli Gurrola MD [address] [place] [address] PCP - General Specialist 08/12/19 documented as of this encounter
--- OUTSIDE RECORDS SUMMARY | 2024-11-24 14:33 | XMS_ITS | Encounter Summary ---
Author Organization [facility] Address [address] [place] [address] Care Team Providers Care Striker Off Name Role Phone Areli Gurrola MD Primary Care Provider Encounter Details Date Type Department Care Team (Latest Contact Info) Description 09/12/2005 Outpatient Historical [facility] [address] [place] [address] Trell Maria Jr., MD [address] [place] [address] Anxiety State, Unspecified (Primary Dx) Social History Tobacco Use Types Packs/Day Years Used Date Smoking Tobacco: Never Assessed Comments Unknown Sex and Gender Information Value Date Recorded Sex Assigned at Not on file Legal Sex Female 3:40 AM HEALTH INFORMATION CODER Gender Identity Not on file Sexual Orientation Not on file documented as of this encounter Plan of Treatment Not on file documented as of this encounter Visit Diagnoses Diagnosis Anxiety state, unspecified- Primary documented in this encounter Additional Health Concerns Infection Onset Date Last Indicated Resolved Time R/O COVID-19 01/31/2020 01/31/2020 02/02/2020 10:3 2 AM CDT documented as of this encounter Care Teams Striker Off Relationship Specialty Start Date End Date Areli Gurrola MD [address] [facility] [place] [phone] PCP - General Specialist 08/12/19 documented as of this encounter
--- OUTSIDE RECORDS SUMMARY | 2024-11-24 14:33 | XMS_ITS | Encounter Summary ---
Author Organization [facility] Address [address] [place] [address] Care Team Providers Care Food Stylist Name Role Phone Areli Gurrola MD Primary Care Provider Encounter Details Date Type Department Care Team (Late st Contact Info) Description 03/25/1999 Outpatient Historical [facility] Social History Tobacco Use Types Packs/Day Years Used Date Smoking Tobacco: Never Assessed Comments Unknown Sex and Gender Information Value Date Recorded Sex Assigned at Not on file Legal Sex Female 3:40 AM COLLEGE INSTRUCTOR Gender Identity Not on file Sexual Orientation Not on file documented as of this encounter Plan of Treatment Not on file documented as of this encounter Visit Diagnoses Not on filedocumented in this encounter Additional Health Concerns Infection Onset Date Last Indicated Resolved Time R/O COVID-19 01/31/2020 01/31/2020 02/02/2020 10:3 2 AM CDT documented as of this encounter Care Teams Food Stylist Relationship Specialty Start Date End Date Areli Gurrola MD [address] [place] [address] PCP - General Specialist 08/12/19 documented as of this encounter
--- OUTSIDE RECORDS SUMMARY | 2024-11-24 14:33 | XMS_ITS | Encounter Summary ---
Author Organization [facility] Address [address] [place] [address] Care Team Providers Care Insurance Compliance Analyst Name Role Phone Areli Gurrola MD Primary Care Provider Encounter Details Date Type Department Care Team (Late st Contact Info) Description 04/07/1999 Outpatient Historical [facility] Social History Tobacco Use Types Packs/Day Years Used Date Smoking Tobacco: Never Assessed Comments Unknown Sex and Gender Information Value Date Recorded Sex Assigned at Not on file Legal Sex Female 3:40 AM ABSTRACT SEARCHER Gender Identity Not on file Sexual Orientation Not on file documented as of this encounter Plan of Treatment Not on file documented as of this encounter Visit Diagnoses Not on filedocumented in this encounter Additional Health Concerns Infection Onset Date Last Indicated Resolved Time R/O COVID-19 01/31/2020 01/31/2020 02/02/2020 10:3 2 AM CDT documented as of this encounter Care Teams Insurance Compliance Analyst Relationship Specialty Start Date End Date Areli Gurrola MD [address] [place] [address] PCP - General Specialist 08/12/19 documented as of this encounter
--- OUTSIDE RECORDS SUMMARY | 2024-11-24 14:33 | XMS_ITS | Encounter Summary ---
Author Organization [facility] Address [address] [place] [address] Care Team Providers Care Preparation Operator Name Role Phone Areli Gurrola MD Primary Care Provider Encounter Details Date Type Department Care Team (Late st Contact Info) Description 04/11/1999 Outpatient Historical HIS [facility] Social History Tobacco Use Types Packs/Day Years Used Date Smoking Tobacco: Never Assessed Comments Unknown Sex and Gender Information Value Date Recorded Sex Assigned at Not on file Legal Sex Female 3:40 AM TECHNICAL SERVICE ENGINEER Gender Identity Not on file Sexual Orientation Not on file documented as of this encounter Plan of Treatment Not on file documented as of this encounter Visit Diagnoses Not on filedocumented in this encounter Additional Health Concerns Infection Onset Date Last Indicated Resolved Time R/O COVID-19 01/31/2020 01/31/2020 02/02/2020 10:3 2 AM CDT documented as of this encounter Care Teams Preparation Operator Relationship Specialty Start Date End Date Areli Gurrola MD [address] [place] [address] PCP - General Specialist 08/12/19 documented as of this encounter
--- OUTSIDE RECORDS SUMMARY | 2024-11-24 14:33 | XMS_ITS | Encounter Summary ---
Author Organization [facility] Address [address] [place] [address] Care Team Providers Care Catalogue Compiler Name Role Phone Areli Gurrola MD Primary Care Provider Encounter Details Date Type Department Care Team (Late st Contact Info) Description 04/14/1999 Outpatient Historical HIS [facility] Social History Tobacco Use Types Packs/Day Years Used Date Smoking Tobacco: Never Assessed Comments Unknown Sex and Gender Information Value Date Recorded Sex Assigned at Not on file Legal Sex Female 3:40 AM MANAGER MATERIAL Gender Identity Not on file Sexual Orientation Not on file documented as of this encounter Plan of Treatment Not on file documented as of this encounter Visit Diagnoses Not on filedocumented in this encounter Additional Health Concerns Infection Onset Date Last Indicated Resolved Time R/O COVID-19 01/31/2020 01/31/2020 02/02/2020 10:3 2 AM CDT documented as of this encounter Care Teams Catalogue Compiler Relationship Specialty Start Date End Date Areli Gurrola MD [address] [place] [address] PCP - General Specialist 08/12/19 documented as of this encounter
--- OUTSIDE RECORDS SUMMARY | 2024-11-24 14:33 | XMS_ITS | Encounter Summary ---
Author Organization [facility] Address [address] [place] [address] Care Team Providers Care Software Publisher Name Role Phone Areli Gurrola MD Primary Care Provider Encounter Details Date Type Department Care Team (Late st Contact Info) Description 04/11/1999 Outpatient Historical HIS [facility] Social History Tobacco Use Types Packs/Day Years Used Date Smoking Tobacco: Never Assessed Comments Unknown Sex and Gender Information Value Date Recorded Sex Assigned at Not on file Legal Sex Female 3:40 AM FULL STACK PHP DEVELOPER Gender Identity Not on file Sexual Orientation Not on file documented as of this encounter Plan of Treatment Not on file documented as of this encounter Visit Diagnoses Not on filedocumented in this encounter Additional Health Concerns Infection Onset Date Last Indicated Resolved Time R/O COVID-19 01/31/2020 01/31/2020 02/02/2020 10:3 2 AM CDT documented as of this encounter Care Teams Software Publisher Relationship Specialty Start Date End Date Areli Gurrola MD [address] [place] [address] PCP - General Specialist 08/12/19 documented as of this encounter
--- OUTSIDE RECORDS SUMMARY | 2024-11-24 14:33 | XMS_ITS | Encounter Summary ---
Author Organization [facility] Address [address] [place] [address] Care Team Providers Care Overhead Crane Technician Name Role Phone Areli Gurrola MD Primary Care Provider Encounter Details Date Type Department Care Team (Latest Contact Info) Description 09/01/1999 Outpatient Historical [facility] Joseph Ramos MD [address] [place] [address] Pain in joint, hand (Primary Dx); Follow-up examination following surgery Social History Tobacco Use Types Packs/Day Years Used Date Smoking Tobacco: Never Assessed Comments Unknown Sex and Gender Information Value Date Recorded Sex Assigned at Not on file Legal Sex Female 3:40 AM BRANCH CREDIT COUNSELOR Gender Identity Not on file Sexual Orientation [...] documented as of this encounter Care Teams Overhead Crane Technician Relationship Specialty Start Date End Date Areli Gurrola MD [address] [place] [address] PCP - General Specialist 08/12/19 documented as of this encounter
--- OUTSIDE RECORDS SUMMARY | 2024-11-24 14:33 | XMS_ITS | Encounter Summary ---
Author Organization [facility] Address [address] [place] [address] Care Team Providers Care Bottler Name Role Phone Areli Gurrola MD Primary Care Provider Encounter Details Date Type Department Care Team (Late st Contact Info) Description 03/30/1999 Outpatient Historical HIS [facility] Social History Tobacco Use Types Packs/Day Years Used Date Smoking Tobacco: Never Assessed Comments Unknown Sex and Gender Information Value Date Recorded Sex Assigned at Not on file Legal Sex Female 3:40 AM SPINNING MACHINE TENDER Gender Identity Not on file Sexual Orientation Not on file documented as of this encounter Plan of Treatment Not on file documented as of this encounter Visit Diagnoses Not on filedocumented in this encounter Additional Health Concerns Infection Onset Date Last Indicated Resolved Time R/O COVID-19 01/31/2020 01/31/2020 02/02/2020 10:3 2 AM CDT documented as of this encounter Care Teams Bottler Relationship Specialty Start Date End Date Areli Gurrola MD [address] [place] [address] PCP - General Specialist 08/12/19 documented as of this encounter
--- OUTSIDE RECORDS SUMMARY | 2024-11-24 14:33 | XMS_ITS | Encounter Summary ---
Author Organization [facility] Address [address] [place] [address] Care Team Providers Care Education Program Associate Name Role Phone Areli Gurrola MD Primary Care Provider Encounter Details Date Type Department Care Team (Late st Contact Info) Description 06/24/2003 Outpatient Historical [facility] [place] [address] [place] [address] Shayy Landry MD [address] [address] Social History Tobacco Use Types Packs/Day Years Used Date Smoking Tobacco: Never Assessed Comments Unknown Sex and Gender Information Value Date Recorded Sex Assigned at Not on file Legal Sex Female 3:40 AM LINE PREP COOK Gender Identity Not on file Sexual Orientation Not on file documented as of this encounter Plan of Treatment Not on file documented as of this encounter Visit Diagnoses Not on filedocumented in this encounter Additional Health Concerns Infection Onset Date Last Indicated Resolved Time R/O COVID-19 01/31/2020 01/31/2020 02/02/2020 10:3 2 AM CDT documented as of this encounter Care Teams Education Program Associate Relationship Specialty Start Date End Date Areli Gurrola MD [address] [facility] [address] PCP - General Specialist 08/12/19 documented as of this encounter
--- OUTSIDE RECORDS SUMMARY | 2024-11-24 14:33 | XMS_ITS | Encounter Summary ---
Author Organization [facility] Address [address] [place] [address] Care Team Providers Care Meal Cook Name Role Phone Areli Gurrola MD Primary Care Provider Encounter Details Date Type Department Care Team (Late st Contact Info) Description 03/30/1999 Outpatient Historical HIS [facility] Social History Tobacco Use Types Packs/Day Years Used Date Smoking Tobacco: Never Assessed Comments Unknown Sex and Gender Information Value Date Recorded Sex Assigned at Not on file Legal Sex Female 3:40 AM PLASTICS FITTER Gender Identity Not on file Sexual Orientation Not on file documented as of this encounter Plan of Treatment Not on file documented as of this encounter Visit Diagnoses Not on filedocumented in this encounter Additional Health Concerns Infection Onset Date Last Indicated Resolved Time R/O COVID-19 01/31/2020 01/31/2020 02/02/2020 10:3 2 AM CDT documented as of this encounter Care Teams Meal Cook Relationship Specialty Start Date End Date Areli Gurrola MD [address] [place] [address] PCP - General Specialist 08/12/19 documented as of this encounter
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
--- OUTSIDE RECORDS SUMMARY | 2024-11-24 14:33 | XMS_ITS | Encounter Summary ---
Author Organization [facility] Address [address] [place] [address] Care Team Providers Care Recyclable Products Sorter Name Role Phone Areli Gurrola MD Primary Care Provider Encounter Details Date Type Department Care Team (Latest Contact Info) Description 10/20/1999 Outpatient Historical [facility] Joseph Ramos MD [address] [place] [address] Carpal tunnel syndrome (Primary Dx) Social History Tobacco Use Types Packs/Day Years Used Date Smoking Tobacco: Never Assessed Comments Unknown Sex and Gender Information Value Date Recorded Sex Assigned at Not on file Legal Sex Female 3:40 AM CLINICAL RESOURCE NURSE Gender Identity Not on file Sexual [...] documented as of this encounter Care Teams Recyclable Products Sorter Relationship Specialty Start Date End Date Areli Gurrola MD [address] [facility] [place] [address] PCP - General Specialist 08/12/19 documented as of this encounter
--- OUTSIDE RECORDS SUMMARY | 2024-11-24 14:33 | XMS_ITS | Encounter Summary ---
Author Organization [facility] Address [address] [place] [address] Care Team Providers Care Supervisor Histology Name Role Phone Areli Gurrola MD Primary Care Provider Encounter Details Date Type Department Care Team (Late st Contact Info) Description 03/31/1999 Outpatient Historical [facility] Social History Tobacco Use Types Packs/Day Years Used Date Smoking Tobacco: Never Assessed Comments Unknown Sex and Gender Information Value Date Recorded Sex Assigned at Not on file Legal Sex Female 3:40 AM GENERAL ACCOUNTANT Gender Identity Not on file Sexual Orientation Not on file documented as of this encounter Plan of Treatment Not on file documented as of this encounter Visit Diagnoses Not on filedocumented in this encounter Additional Health Concerns Infection Onset Date Last Indicated Resolved Time R/O COVID-19 01/31/2020 01/31/2020 02/02/2020 10:3 2 AM CDT documented as of this encounter Care Teams Supervisor Histology Relationship Specialty Start Date End Date Areli Gurrola MD [address] [place] [address] PCP - General Specialist 08/12/19 documented as of this encounter
--- OUTSIDE RECORDS SUMMARY | 2024-11-24 14:33 | XMS_ITS | Encounter Summary ---
Author Organization [facility] Address [address] [place] [address] Care Team Providers Care Bingo Checker Name Role Phone Areli Gurrola MD Primary Care Provider Encounter Details Date Type Department Care Team (Latest Contact Info) Description 10/11/2005 Outpatient Historical [facility] [address] [place] [address] Trell York MD [address] [place] [phone] Dysthymic Disorder (Primary Dx); Lumbago Social History Tobacco Use Types Packs/Day Years Used Date Smoking Tobacco: Never Assessed Comments Unknown Sex and Gender Information Value Date Recorded Sex Assigned at Not on file Legal Sex Female 3:40 AM TAR HEEL Gender Identity Not on file Sexual Orientation Not on file documented as of this encounter Plan of Treatment Not on file documented as of this encounter Visit Diagnoses Diagnosis Dysthymic disorder- Primary Lumbago documented in this encounter Additional Health Concerns Infection Onset Date Last Indicated Resolved Time R/O COVID-19 01/31/2020 01/31/2020 02/02/2020 10:3 2 AM CDT documented as of this encounter Care Teams Bingo Checker Relationship Specialty Start Date End Date Areli Gurrola MD [address] [facility] [place] [address] PCP - General Specialist 08/12/19 documented as of this encounter
--- OUTSIDE RECORDS SUMMARY | 2024-11-24 14:33 | XMS_ITS | Encounter Summary ---
Author Organization [facility] Address [address] [place] [address] Care Team Providers Care Ground Support Equipment Fitter Name Role Phone Areli Gurrola MD Primary Care Provider Encounter Details Date Type Department Care Team (Late st Contact Info) Description 03/28/1999 Outpatient Historical [facility] Social History Tobacco Use Types Packs/Day Years Used Date Smoking Tobacco: Never Assessed Comments Unknown Sex and Gender Information Value Date Recorded Sex Assigned at Not on file Legal Sex Female 3:40 AM SUPERVISOR SAMPLE PREPARATION Gender Identity Not on file Sexual Orientation Not on file documented as of this encounter Plan of Treatment Not on file documented as of this encounter Visit Diagnoses Not on filedocumented in this encounter Additional Health Concerns Infection Onset Date Last Indicated Resolved Time R/O COVID-19 01/31/2020 01/31/2020 02/02/2020 10:3 2 AM CDT documented as of this encounter Care Teams Ground Support Equipment Fitter Relationship Specialty Start Date End Date Areli Gurrola MD [address] [place] [address] PCP - General Specialist 08/12/19 documented as of this encounter
--- OUTSIDE RECORDS SUMMARY | 2024-11-24 14:33 | XMS_ITS | Encounter Summary ---
Author Organization [facility] Address [address] [place] [address] Care Team Providers Care Program Rep Name Role Phone Areli Gurrola MD Primary Care Provider Encounter Details Date Type Department Care Team (Late st Contact Info) Description 05/14/2003 Outpatient Historical [facility] [address] [place] [address] Roman Law, DO [address] [place] [phone] ACUTE SINUSITIS NOS (Primary Dx) Social History Tobacco Use Types Packs/Day Years Used Date Smoking Tobacco: Never Assessed Comments Unknown Sex and Gender Information Value Date Recorded Sex Assigned at Not on file Legal Sex Female 3:40 AM POEM WRITER Gender Identity Not on file Sexual Orientation Not on file documented as of this encounter Plan of Treatment Not on file documented as of this encounter Visit Diagnoses Diagnosis Acute sinusitis, unspecified- Primary documented in this encounter Additional Health Concerns Infection Onset Date Last Indicated Resolved Time R/O COVID-19 01/31/2020 01/31/2020 02/02/2020 10:3 2 AM CDT documented as of this encounter Care Teams Program Rep Relationship Specialty Start Date End Date Areli Gurrola MD [address] [place] [address] PCP - General Specialist 08/12/19 documented as of this encounter
--- OUTSIDE RECORDS SUMMARY | 2024-11-24 14:33 | XMS_ITS | Encounter Summary ---
Author Organization [facility] Address [address] [place] [address] Care Team Providers Care Motor Winder Name Role Phone Areli Gurrola MD Primary Care Provider Encounter Details Date Type Department Care Team (Late st Contact Info) Description 03/16/1999 Outpatient Historical [facility] Social History Tobacco Use Types Packs/Day Years Used Date Smoking Tobacco: Never Assessed Comments Unknown Sex and Gender Information Value Date Recorded Sex Assigned at Not on file Legal Sex Female 3:40 AM TRIMMING CUTTER MACHINE Gender Identity Not on file Sexual Orientation Not on file documented as of this encounter Plan of Treatment Not on file documented as of this encounter Visit Diagnoses Not on filedocumented in this encounter Additional Health Concerns Infection Onset Date Last Indicated Resolved Time R/O COVID-19 01/31/2020 01/31/2020 02/02/2020 10:3 2 AM CDT documented as of this encounter Care Teams Motor Winder Relationship Specialty Start Date End Date Areli Gurrola MD [address] [place] [address] PCP - General Specialist 08/12/19 documented as of this encounter
--- OUTSIDE RECORDS SUMMARY | 2024-11-24 14:34 | XMS_ITS | Encounter Summary ---
Author Organization [facility] Address [address] [place] [address] Care Team Providers Care Tree Puller Name Role Phone Areli Gurrola MD Primary Care Provider Encounter Details Date Type Department Care Team (Latest Contact Info) Description 09/14/2004 Outpatient Historical [facility] [address] [place] [address] Trell York MD [address] [place] [phone] DYSTHYMIC DISORDER (Primary Dx); CERVICALGIA; LUMBAGO Social History Tobacco Use Types Packs/Day Years Used Date Smoking Tobacco: Never Assessed Comments Unknown Sex and Gender Information Value Date Recorded Sex Assigned at Not on file Legal Sex Female 3:40 AM COSMETIC MAKER Gender Identity Not on file Sexual [...] documented as of this encounter Care Teams Tree Puller Relationship Specialty Start Date End Date Areli uGrrola MD [address] [facility] [place] [address] PCP - General Specialist 08/12/19 documented as of this encounter
--- OUTSIDE RECORDS SUMMARY | 2024-11-24 14:34 | XMS_ITS | Encounter Summary ---
Author Organization [facility] Address [address] [place] [address] Care Team Providers Care Elementary Assistant Teacher Name Role Phone Areli Gurrola MD Primary Care Provider Encounter Details Date Type Department Care Team (Latest Contact Info) Description 07/07/2004 Outpatient Historical [facility] Services [place] [address] [place] [address] Trell York MD [address] [place] [address] CERVICAL DISC DISPLACMNT (Primary Dx) Social History Tobacco Use Types Packs/Day Years Used Date Smoking Tobacco: Never Assessed Comments Unknown Sex and Gender Information Value Date Recorded Sex Assigned at Not on file Legal Sex Female 3:40 AM HYPO SPLASHER Gender Identity Not on file Sexual Orientation [...] documented as of this encounter Care Teams Elementary Assistant Teacher Relationship Specialty Start Date End Date Areli Gurrola MD [address] [facility] [place] [address] PCP - General Specialist 08/12/19 documented as of this encounter
--- OUTSIDE RECORDS SUMMARY | 2024-11-24 14:34 | XMS_ITS | Encounter Summary ---
Author Organization [facility] Address [address] [place] [address] Care Team Providers Care Converter Operator Name Role Phone Areli Gurrola MD Primary Care Provider Encounter Details Date Type Department Care Team (Latest Contact Info) Description 02/20/2005 Outpatient Historical [facility] [address] [place] [address] Trell York MD [address] [place] [phone] LUMBAGO (Primary Dx); DYSTHYMIC DISORDER; ANXIETY STATE NOS; CERVICALGIA Social History Tobacco Use Types Packs/Day Years Used Date Smoking Tobacco: Never Assessed Comments Unknown Sex and Gender Information Value Date Recorded Sex Assigned at Not on file Legal Sex Female 3:40 AM LAB ENGINEER Gender Identity Not on file Sexual [...] documented as of this encounter Care Teams Converter Operator Relationship Specialty Start Date End Date Areli uGrrola MD [address] [place] [address] PCP - General Specialist 08/12/19 documented as of this encounter
--- OUTSIDE RECORDS SUMMARY | 2024-11-24 14:34 | XMS_ITS | Encounter Summary ---
Author Organization [facility] Address [address] [facility] Attn: [place] [address] Care Team Providers Care Optical Lab Technician Name Role Phone Areli Gurrola MD Primary Care Provider Encounter Details Date Type Department Care Team (Late st Contact Info) Description 03/12/1999 Outpatient Historical Alumno, Gibran Lynn MD [address] [facility] [address] [place] [phone] Social History Tobacco Use Types Packs/Day Years Used Date Smoking Tobacco: Never Assessed Comments Unknown Sex and Gender Information Value Date Recorded Sex Assigned at Not on file Legal Sex Female 3:40 AM FREIGHT REPRESENTATIVE Gender Identity Not on file Sexual Orientation Not on file documented as of this encounter Plan of Treatment Not on file documented as of this encounter Visit Diagnoses Not on filedocumented in this encounter Additional Health Concerns Infection Onset Date Last Indicated Resolved Time R/O COVID-19 01/31/2020 01/31/2020 02/02/2020 10:3 2 AM CDT documented as of this encounter Care Teams Optical Lab Technician Relationship Specialty Start Date End Date Areli Gurrola MD [address] [facility] [place] [address] PCP - General Specialist 08/12/19 documented as of this encounter
--- OUTSIDE RECORDS SUMMARY | 2024-11-24 14:34 | XMS_ITS | Encounter Summary ---
Author Organization [facility] Address [address] [place] [address] Care Team Providers Care Lamination Assembler Name Role Phone Areli Gurrola MD Primary Care Provider Encounter Details Date Type Department Care Team (Latest Contact Info) Description 02/14/1999 Outpatient Historical [facility] [address] [place] [address] Alumno, Gibran Lynn MD [address] [place] [address] Sprain and strain of other specified sites of shoulder and upper arm (Primary Dx) Social History Tobacco Use Types Packs/Day Years Used Date Smoking Tobacco: Never Assessed Comments Unknown Sex and Gender Information Value Date Recorded Sex Assigned at Not on file Legal Sex Female 3:40 AM BOAT FUELER Gender Identity Not on file Sexual Orientation [...] documented as of this encounter Care Teams Lamination Assembler Relationship Specialty Start Date End Date Areli Gurrola MD [address] [place] [address] PCP - General Specialist 08/12/19 documented as of this encounter
--- OUTSIDE RECORDS SUMMARY | 2024-11-24 14:34 | XMS_ITS | Encounter Summary ---
Author Organization [facility] Address [address] [place] [address] Care Team Providers Care Inside Plant Supervisor Name Role Phone Areli Gurrola MD Primary Care Provider Encounter Details Date Type Department Care Team (Latest Contact Info) Description 03/14/1999 Outpatient [facility] [address] [place] [address] Ti Rondon MD [address] [place] [address] Abdominal pain, unspecified site (Primary Dx); Fever and other physiologic disturbances of temperature regulation; Backache, unspecified Social History Tobacco Use Types Packs/Day Years Used Date Smoking Tobacco: Never Assessed Comments Unknown Sex and Gender Information Value Date Recorded Sex Assigned at Not on file Legal Sex Female 3:40 AM ELECTROSTATIC PAINTER Gender Identity Not on file Sexual Orientation [...] documented as of this encounter Care Teams Inside Plant Supervisor Relationship Specialty Start Date End Date Areli Gurrola MD [address] [place] [address] PCP - General Specialist 08/12/19 documented as of this encounter
--- OUTSIDE RECORDS SUMMARY | 2024-11-24 14:34 | XMS_ITS | Clinical Summary ---
Author Organization [facility] Address [address] [place] [address] Care Team Providers Care Bindery Cutter Operator Name Role Phone Unavailable Primary Care Provider Unavailabl e Allergies Active Allergy Reactions Criticality Noted Date [...] 8 hours as needed for Spasm. Active nitroglycerin (NITRO-TIME) 2.5 mg Extended Release capsule Take 2.5 mg by mouth 2 times daily. Active cyclobenzaprine (FLEXERIL) 10 mg tablet Take 1 Tablet (10 mg) by mouth 3 times daily as needed for Spasm or Pain. To be dispersed here. 4 Tablet 5 Active cyclobenzaprine (FLEXERIL) 10 mg tablet Take 1 Tablet (10 mg) by mouth 3 times daily as needed for Spasm or Pain. 16 Tablet 5 Active ondansetron (ZOFRAN ODT) 4 mg Tablet, Rapid Dissolve Take 1 Tablet (4 mg) by mouth every 8 hours as needed for Nausea/Emesis. Dissolve tablet on top of tongue, then swallow with saliva. 20 Tablet Active HYDROcodone-lane taminophen (NORCO) 5-325 mg tabletIndicatio ns:Nausea Take 1 Tablet by mouth every 6 hours as needed for Pain, Moderate. Max Daily Amount: 4 Tablets 4 Tablet Active Active Problems Problem Noted Date Diagnosed Date Chronic anemia 05/14/2024 Hx of multiple sclerosis 05/14/2024 History of lower GI bleeding 05/14/2024 Cigarette dependence 10/20/2015 Encounters Date Type Department Care Team Description 11/22/2024 8:22 PM CDT - 11/22/2024 10:24 PM CDT [facility] Emergency Medicine [address] [facility] [address] [place] [address] Julian Avila MD Nausea (Primary Dx); Acute low back pain without sciatica, unspecified back pain laterality Discharge Disposition: Home or Self Care 11/22/2024 Travel 10/28/2024 External Device Data STL ABSTRACTION Provider, Abstract 10/28/2024 External Device Data ST[facility] ABSTRACTION Provider, Abstract 10/28/2024 External Device Data ST[facility] ABSTRACTION Provider, Abstract 10/24/2024 7:46 PM CDT - 10/24/2024 10:27 PM CDT [facility] Emergency Medicine [address] [facility] [address] [place] [address] Radha Castillo DO Pain in sacrum (Primary Dx); Acute midline low back pain without sciatica Discharge Disposition: Home or Self Care 10/24/2024 Travel 09/12/2024 1:26 AM CDT - 09/12/2024 2:20 AM CDT [facility] Emergency Medicine [address] [facility] [address] [place] [address] Suha Stafford MD Encounter for examination following [...] on file Legal Sex Female 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 Gender Identity Not on file Sexual [...] Mass Index 29.81 11/22/2024 8:20 PM CDT Plan of Treatment Health Maintenance [...] and Diabetes Screening 01/20/201801/20 INFLUENZA VACCINE (#1) 2024 COLORECTAL SCREENING 02/16/2026 02/17/2016 Colorectal Cancer Screening 02/16/2026 DTAP/TDAP/TD VACCINES (2 - Td or Tdap) 03/15/2030, 10/13/2006 Procedures Procedure Name Priority Date/Time Associated Diagnosis Comments DIFFERENTIAL, MANUAL Stat 11/22/2024 8:33 PM CDT LIPASE Stat 11/22/2024 8:33 PM CDT COMPREHENSIVE METABOLIC PANEL Stat 11/22/2024 8:33 PM CDT CBC WITH DIFFERENTIAL Stat 11/22/2024 8:33 PM CDT EKG 12-LEAD Stat 11/22/2024 8:14 PM CDT XR LUMBAR SPINE 2 OR 3 VW Stat 10/24/2024 8:41 PM CDT LACERATION REPAIR Routine 09/12/2024 2:1 8 AM CDT HEMOGLOBIN A1C Routine 01/20/2015 from Last 3 Months or Most Recently Relevant to Health Maintenance Results * MANUAL DIFFERENTIAL (11/22/2024 8:33 PM CDT) PLATELET EST. Consistent w Count 11/22/2024 8:53 PM CDT [facility] RBC MORPHOLOGY Normal 11/22/2024 8:53 PM CDT [facility] Blood BLOOD SPECIMEN / Unknown Collection / Unknown 11/22/2024 8:33 PM CDT 11/22/2024 8:39 PM CDT us Julian Avila MD HEMATOLOGY ORDERABLES COM Final Result [facility] CLIA # [id number] [address] [place] [address] * (ABNORMAL) CBC WITH DIFFERENTIAL (11/22/2024 8:33 PM CDT) [facility] WBC 9.6 4.0 - 10.0 K/uL 11/22/2024 8:53 PM [facility] RBC 2.89(L) 3.93 - 5.22 M/uL 11/22/2024 8:53 PM [facility] HEMOGLOBIN 8.3(L) 11.2 - 15.7 g/dL 11/22/2024 8:53 PM [facility] HEMATOCRIT 24.0(L) 34.1 - 44.9 % 11/22/2024 8:53 PM [facility] MCV 83.0 79.4 - 94.8 fL 11/22/2024 8:53 PM [facility] MCH 28.7 25.6 - 32.2 pg 11/22/2024 8:53 PM [facility] MCHC 34.6 32.2 - 35.5 g/dL 11/22/2024 8:53 PM [facility] RDW 15.4(H) 11.0 - 14.5 % 11/22/2024 8:53 PM [facility] RDW-STDEV 46.5 36.9 - 56.9 fL 11/22/2024 8:53 PM [facility] PLATELETS 82(L) 163 - 337 K/uL 11/22/2024 8:53 PM [facility] MPV 10.9 10.0 - 14.8 fL 11/22/2024 8:53 PM [facility] NEUTROPHILS 83(H) 34 - 71 % 11/22/2024 8:53 PM [facility] LYMPHOCYTES 6(L) 19 - 52 % 11/22/2024 8:53 PM [facility] MONOCYTES 9 5 - 13 % 11/22/2024 8:53 PM [facility] EOSINOPHILS 1 1 - 6 % 11/22/2024 8:53 PM [facility] BASOPHILS 0 0 - 1 % 11/22/2024 8:53 PM [facility] IMMATURE GRANULOCYTES 1 % 11/22/2024 8:53 PM CDT [facility] NEUTROPHIL ABSOLUTE 7.95(H) 1.56 - 6.13 K/uL 11/22/2024 8:53 PM CDT [facility] LYMPHOCYTE ABSOLUTE 0.56(L) 1.20 - 3.40 K/uL 11/22/2024 8:53 PM CDT [facility] MONOCYTE ABSOLUTE 0.87(H) 0.24 - 0.36 K/uL 11/22/2024 8:53 PM CDT [facility] EOSINOPHIL ABSOLUTE 0.08 0.04 - 0.36 K/uL 11/22/2024 8:53 PM CDT [facility] BASOPHILS ABSOLUTE 0.03 0.01 - 0.08 K/uL 11/22/2024 8:53 PM CDT [facility] IMMATURE GRANULOCYTES ABSOLUTE 0.12 K/uL 11/22/2024 8:53 PM CDT [facility] Blood BLOOD SPECIMEN / Unknown Collection / Unknown 11/22/2024 8:33 PM CDT 11/22/2024 8:39 PM CDT Julian Avila MD HEMATOLOGY ORDERABLES Final Result [facility] CLIA # [id number] [address] [place] [address] * (ABNORMAL) LIPASE (11/22/2024 8:33 PM CDT) LIPASE 72(H) 13 - 60 U/L 11/22/2024 8:57 PM CDT [facility] Blood BLOOD SPECIMEN / Unknown Collection / Unknown 11/22/2024 8:33 PM CDT 11/22/2024 8:39 PM CDT Julian Avila MD CHEMISTRY ORDERABLES Final Result [facility] CLIA # [id number] [address] [place] [id number] * (ABNORMAL) COMPREHENSIVE METABOLIC PANEL (11/22/2024 8:33 PM T) SODIUM 134(L) 136 - 145 mmol/L 11/22/2024 8:57 PM [facility] POTASSIUM 3.5 3.5 - 5.1 mmol/L 11/22/2024 8:57 PM [facility] CHLORIDE 98 98 - 107 mmol/L 11/22/2024 8:57 PM [facility] CO2 22 22 - 29 mmol/L 11/22/2024 8:57 PM [facility] CALCIUM 8.6 8.6 - 10.0 mg/dL 11/22/2024 8:57 PM [facility] BUN 15 6 - 20 mg/dL 11/22/2024 8:57 PM [facility] CREATININE 0.65 0.51 - 0.95 mg/dL 11/22/2024 8:57 PM [facility] GLUCOSE 92 74 - 99 mg/dL 11/22/2024 8:57 PM [facility] TOTAL PROTEIN 5.4(L) 6.6 - 8.7 g/dL 11/22/2024 8:57 PM [facility] ALBUMIN 3.1(L) 3.5 - 5.2 g/dL 11/22/2024 8:57 PM [facility] BILIRUBIN TOTAL 2.7(H) 0.0 - 1.2 mg/dL 11/22/2024 8:57 PM [facility] ALKALINE PHOSPHATASE 123(H) 35 - 104 U/L 11/22/2024 8:57 PM [facility] AST 62(H) 0 - 35 U/L 11/22/2024 8:57 PM [facility] ALT 27 0 - 35 U/L 11/22/2024 8:57 PM [facility] GFR >60 >=60 mL/min/1.7 3 sq meter 11/22/2024 8:[address] [facility] Comment:eGFR calculated with 2020 CKD-EPI equation. Vegetarian diet, extremely high or low muscle mass, and may affect results. Cystatin C with Glomerular Filtration Rate is a suitable alternative for these patients. ANION GAP 14 5 - 20 mmol/L 11/22/2024 8:57 PM CDT [facility] Blood BLOOD SPECIMEN / Unknown Collection / Unknown 11/22/2024 8:33 PM CDT 11/22/2024 8:39 PM CDT Julian Avila MD CHEMISTRY ORDERABLES Final Result [facility] CLIA # [id number] [address] [place] [id number] * EKG 12 lead (11/22/2024 8:14 PM CDT) Narrative Julian Avila MD - 11/22/2024 8:14 PM CDT Julian Avila MD 11/22/2024 11:44 PM EKG 12 lead Performed by: Julian Avila MD Authorized by: Julian Avila MD Comments: Normal sinus rhythm no evidence of ischemia or infarct normal axis and intervals no arrhythmias Julian Avila MD ECG ORDERABLES Final Result * XR LUMBAR SPINE 2 OR 3 VW (10/24/2024 8:41 PM CDT) Anatomical Region Laterality Modality Spine Computed Radiogr aphy 10/24/2024 8:41 PM CDT Impressions 10/24/2024 10:05 PM CDT IMPRESSION: 1. Age indeterminate inferior endplate compression deformity of L1. 2. Post surgical changes of L3-S1 posterior fixation. Mild lucency surrounding the L3 pedicular screws bilaterally, concerning for loosening. Correlation with any prior imaging is recommended. MACRO: None Narrative 10/24/2024 10:05 PM CDT EXAMINATION: XR LUMBAR SPINE 2 OR 3 VW CLINICAL HISTORY: ASSOCIATED DIAGNOSIS: Low Back Pain, Injury, Comment: Tailbone pain ORDERING PROVIDER: RAHDA CASTILLO TECHNOLOGISTS NOTE: COMPARISON: Lumbar spine radiograph 06/17/2019 FINDINGS: Age indeterminate inferior endplate compression deformity of L1 Postsurgical changes of L3-S1 posterior fixation with L4-L5 discectomy and bilateral sacroiliac screws. There is mild lucency surrounding the bilateral L3 screws. There is no significant listhesis. Procedure Note Gavino Brasher MD - 10/24/2024 EXAMINATION: XR LUMBAR SPINE 2 OR 3 VW CLINICAL HISTORY: ASSOCIATED DIAGNOSIS: Low Back Pain, Injury, Comment: Tailbone pain ORDERING PROVIDER: RADHA CASTILLO TECHNOLOGISTS NOTE: COMPARISON: Lumbar spine radiograph 06/17/2019 FINDINGS: Age indeterminate inferior endplate compression deformity of L1 Postsurgical changes of L3-S1 posterior fixation with L4-L5 discectomy and bilateral sacroiliac screws. There is mild lucency surrounding the bilateral L3 screws. There is no significant listhesis. IMPRESSION: 1. Age indeterminate inferior endplate compression deformity of L1. 2. Post surgical changes of L3-S1 posterior fixation. Mild lucency surrounding the L3 pedicular screws bilaterally, concerning for loosening. Correlation with any prior imaging is recommended. MACRO: None us Radha Castillo DO DIAGNOSTIC IMAGING ORDERABLES Fi nal Result * Laceration Repair (09/12/2024 2:18 AM CDT) [...] for additional repair Alternatives discussed: No treatment [place] protocol: Procedure explained and questions answered to [...] Abstract Spg Provider CHEMISTRY ORDERABLES Final Result Performing Organization Address City/State/[facility] Co de Phone Number EXTERNAL LAB from Last 3 Months or Most Recently Relevant to Health Maintenance Insurance [place] [facility]
--- OUTSIDE RECORDS SUMMARY | 2024-11-24 14:34 | XMS_ITS | Encounter Summary ---
Author Organization [facility] Address [address] [place] [address] Care Team Providers Care Correctional Therapy Director Name Role Phone Areli Gurrola MD Primary Care Provider Encounter Details Date Type Department Care Team (Latest Contact Info) Description 06/07/1998 Outpatient Historical [facility] P[facility]IC [facility] Charli Perez MD NO ADDRESS ON FILE Open wound of forehead (Primary Dx) Social History Tobacco Use Types Packs/Day Years Used Date Smoking Tobacco: Never Assessed Comments Unknown Sex and Gender Information Value Date Recorded Sex Assigned at Not on file 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
--- OUTSIDE RECORDS SUMMARY | 2024-11-24 14:34 | XMS_ITS | Encounter Summary ---
Author Organization [facility] Address [address] [place] [address] Care Team Providers Care Draw Fire Operator Name Role Phone Areli Gurrola MD Primary Care Provider Encounter Details Date Type Department Care Team (Latest Contact Info) Description 10/03/2002 Outpatient [facility] [place] [address] [place] [address] Gordon Cabral MD NO ADDRESS ON FILE METRORRHAGIA (Primary Dx) Social History Tobacco Use Types Packs/Day Years Used Date Smoking Tobacco: Never Assessed Comments Unknown Sex and Gender Information Value Date Recorded Sex Assigned at Not on file 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 Gender Identity Not on file Sexual Orientation Not on file documented as of this encounter Plan of Treatment Not on file documented as of this encounter Visit Diagnoses Diagnosis Metrorrhagia- Primary documented in this encounter Additional Health Concerns Infection Onset Date Last Indicated Resolved Time R/O COVID-19 01/31/2020 01/31/2020 02/02/2020 10:3 2 AM CDT documented as of this encounter Care Teams Draw Fire Operator Relationship Specialty Start Date End Date Areli Gurrola MD [address] [facility] [place] [address] PCP - General Specialist 08/12/19 documented as of this encounter
--- OUTSIDE RECORDS SUMMARY | 2024-11-24 14:34 | XMS_ITS | Encounter Summary ---
Author Organization [facility] Address [address] [facility] Attn: [place] [address] Care Team Providers Care Fishing Vessel Operator Name Role Phone Unavailable Primary Care Provider Unavailabl e Encounter Details Date Type Department Care Team (Latest Contact Info) Description 11/22/2024 Travel Social History Tobacco Use Types Packs/Day Years Used Date Smoking Tobacco: Every Day Cigarettes Smokeless Tobacco: Never Comments:4 cigarettes daily Alcohol Use Standard Drinks/Week Comments Yes 21 (1 standard drink = 0.6 oz pu re alcohol) about a pint a day Comments No Sex and Gender Information Value Date Recorded Sex Assigned at Not on file 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
--- OUTSIDE RECORDS SUMMARY | 2024-11-24 14:34 | XMS_ITS | Encounter Summary ---
Author Organization [facility] Address [address] [place] [address] Care Team Providers Care Transportation Aid Name Role Phone Areli Gurrola MD Primary Care Provider Encounter Details Date Type Department Care Team (Latest Contact Info) Description 10/09/2002 Outpatient [facility] [place] [address] [place] [address] Gordon Cabral MD NO ADDRESS ON FILE Excessive menstruation (Primary Dx) Social History Tobacco Use Types Packs/Day Years Used Date Smoking Tobacco: Never Assessed Comments Unknown Sex and Gender Information Value Date Recorded Sex Assigned at Not on file 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
--- OUTSIDE RECORDS SUMMARY | 2024-11-24 14:34 | XMS_ITS | Encounter Summary ---
Author Organization [facility] Address [address] [place] [address] Care Team Providers Care Lubrication Servicer Name Role Phone Areli Gurrola MD Primary Care Provider Encounter Details Date Type Department Care Team (Latest Contact Info) Description 05/11/2003 Outpatient Historical [facility] [address] [place] [address] Trell York MD [address] [place] [phone] CERVICALGIA (Primary Dx) Social History Tobacco Use Types Packs/Day Years Used Date Smoking Tobacco: Never Assessed Comments Unknown Sex and Gender Information Value Date Recorded Sex Assigned at Not on file 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 Gender Identity Not on file Sexual Orientation Not on file documented as of this encounter Plan of Treatment Not on file documented as of this encounter Visit Diagnoses Diagnosis Cervicalgia- Primary documented in this encounter Additional Health Concerns Infection Onset Date Last Indicated Resolved Time R/O COVID-19 01/31/2020 01/31/2020 02/02/2020 10:3 2 AM CDT documented as of this encounter Care Teams Lubrication Servicer Relationship Specialty Start Date End Date Areli Gurrola MD [address] [facility] [place] [address] PCP - General Specialist 08/12/19 documented as of this encounter
--- OUTSIDE RECORDS SUMMARY | 2024-11-24 14:34 | XMS_ITS | Encounter Summary ---
Author Organization [facility] Address [address] [place] [address] Care Team Providers Care Hotel Concierge Name Role Phone Areli Gurrola MD Primary Care Provider Encounter Details Date Type Department Care Team (Latest Contact Info) Description 10/20/2002 Outpatient Historical 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
--- OUTSIDE RECORDS SUMMARY | 2024-11-24 14:34 | XMS_ITS | Encounter Summary ---
Author Organization [facility] Address [address] [place] [address] Care Team Providers Care Office Support Assistant Name Role Phone Areli Gurrola MD Primary Care Provider Encounter Details Date Type Department Care Team (Latest Contact Info) Description 04/21/2003 Outpatient [facility] [place] [address] [place] [address] Gordon Cabral MD NO ADDRESS ON FILE URIN TRACT INFECTION NOS (Primary Dx) Social History Tobacco Use Types Packs/Day Years Used Date Smoking Tobacco: Never Assessed Comments Unknown Sex and Gender Information Value Date Recorded Sex Assigned at Not on file 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
--- OUTSIDE RECORDS SUMMARY | 2024-11-24 14:34 | XMS_ITS | Encounter Summary ---
Author Organization [facility] Address [address] [place] [address] Care Team Providers Care High Worker Name Role Phone Areli Gurrola MD Primary Care Provider Encounter Details Date Type Department Care Team (Latest Contact Info) Description 06/04/1998 Outpatient Historical [facility] [facility] Charli Perez MD NO ADDRESS ON FILE Open wound of forehead (Primary Dx) Social History Tobacco Use Types Packs/Day Years Used Date Smoking Tobacco: Never Assessed Comments Unknown Sex and Gender Information Value Date Recorded Sex Assigned at Not on file 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
--- OUTSIDE RECORDS SUMMARY | 2024-11-24 14:34 | XMS_ITS | Encounter Summary ---
Author Organization [facility] Address [address] [place] [address] Care Team Providers Care Cultural Historian Name Role Phone Areli Gurrola MD Primary Care Provider Encounter Details Date Type Department Care Team (Latest Contact Info) Description 03/09/1999 Outpatient [facility] [address] [place] [address] Alumno, Gibran Lynn MD [address] [place] [address] Sprain and strain of unspecified site of shoulder and upper arm (Primary Dx); Backache, unspecified Social History Tobacco Use Types Packs/Day Years Used Date Smoking Tobacco: Never Assessed Comments Unknown Sex and Gender Information Value Date Recorded Sex Assigned at Not on file 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
--- OUTSIDE RECORDS SUMMARY | 2024-11-24 14:34 | XMS_ITS | Encounter Summary ---
Author Organization [facility] Address [address] [place] [address] Care Team Providers Care Customer Relations Specialist Name Role Phone Areli Gurrola MD Primary Care Provider Encounter Details Date Type Department Care Team (Latest Contact Info) Description 10/03/2002 [facility] [address] [place] [address] Gordon Cabral MD NO ADDRESS ON FILE MENSTRUAL DISORDER NEC (Primary Dx) Social History Tobacco Use Types Packs/Day Years Used Date Smoking Tobacco: Never Assessed Comments Unknown Sex and Gender Information Value Date Recorded Sex Assigned at Not on file 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
--- OUTSIDE RECORDS SUMMARY | 2024-11-24 14:34 | XMS_ITS | Encounter Summary ---
Author Organization [facility] Address [address] [place] [address] Care Team Providers Care Wood Mill Supervisor Name Role Phone Areli Gurrola MD Primary Care Provider Encounter Details Date Type Department Care Team (Latest Contact Info) Description 07/19/1998 Outpatient Historical [facility] [place] [facility] Charli Perez MD NO ADDRESS ON FILE Scar condition and fibrosis of skin (Primary Dx) Social History Tobacco Use Types Packs/Day Years Used Date Smoking Tobacco: Never Assessed Comments Unknown Sex and Gender Information Value Date Recorded Sex Assigned at Not on file 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
--- OUTSIDE RECORDS SUMMARY | 2024-11-24 14:34 | XMS_ITS | Encounter Summary ---
Author Organization [facility] Address [address] [place] [address] Care Team Providers Care Corporate Financial Analyst Name Role Phone Areli Gurrola MD Primary Care Provider Encounter Details Date Type Department Care Team (Latest Contact Info) Description 10/22/2002 Outpatient Historical 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
--- OUTSIDE RECORDS SUMMARY | 2024-11-24 14:34 | XMS_ITS | Encounter Summary ---
Author Organization [facility] Address [address] [place] [address] Care Team Providers Care Cash Accountant Name Role Phone Areli Gurrola MD Primary Care Provider Encounter Details Date Type Department Care Team (Latest Contact Info) Description 10/09/2002 Outpatient Historical [facility] [place] [address] [place] [address] Gordon Cabral MD NO ADDRESS ON FILE Excessive menstruation (Primary Dx) Social History Tobacco Use Types Packs/Day Years Used Date Smoking Tobacco: Never Assessed Comments Unknown Sex and Gender Information Value Date Recorded Sex Assigned at Not on file 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
--- OUTSIDE RECORDS SUMMARY | 2024-11-24 14:34 | XMS_ITS | Encounter Summary ---
Author Organization [facility] Address [address] [place] [address] Care Team Providers Care Bus And Trolley Dispatcher Name Role Phone Areli Gurrola MD Primary Care Provider Encounter Details Date Type Department Care Team (Latest Contact Info) Description 10/16/2002 Outpatient [facility] [place] [address] [place] [address] Gordon Cabral MD NO ADDRESS ON FILE PREOP EXAM OTHER SPECIFIED (Primary Dx); Excessive menstruation Social History Tobacco Use Types Packs/Day Years Used Date Smoking Tobacco: Never Assessed Comments Unknown Sex and Gender Information Value Date Recorded Sex Assigned at Not on file Legal Sex Female 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
--- OUTSIDE RECORDS SUMMARY | 2024-11-24 14:34 | XMS_ITS | Encounter Summary ---
Author Organization [facility] Address [address] [place] [address] Care Team Providers Care Carpet Yarn Winder Operator Name Role Phone Areli Gurrola MD Primary Care Provider Encounter Details Date Type Department Care Team (Latest Contact Info) Description 04/25/2004 Outpatient Historical [facility] [address] [place] [address] Trell York MD [address] [place] [id number] DYSTHYMIC DISORDER (Primary Dx); LUMBAGO; Pain in limb; Inflamed seborr keratos Social History Tobacco Use Types Packs/Day Years Used Date Smoking Tobacco: Never Assessed Comments Unknown Sex and Gender Information Value Date Recorded Sex Assigned at Not on file Legal Sex Female 3:40 AM CONSERVATION OFFICER Gender Identity Not on file Sexual [...] as of this encounter Care Teams Carpet Yarn Winder Operator Relationship Specialty Start Date End Date Areli Gurrola MD [address] [facility] [place] [address] PCP - General Specialist 08/12/19 documented as of this encounter
--- OUTSIDE RECORDS SUMMARY | 2024-11-24 14:34 | XMS_ITS | Encounter Summary ---
Author Organization [facility] Address [address] [place] [address] Care Team Providers Care Jewel Hole Cornerer Name Role Phone Areli Gurrola MD Primary [...] on file Legal Sex Female 3:40 AM EMBOSSER APPRENTICE Gender Identity Not on file Sexual [...] documented as of this encounter Care Teams Jewel Hole Cornerer Relationship Specialty Start Date End Date Areli Gurrola MD [address] [place] [address] PCP - General Specialist 08/12/19 documented as of this encounter
--- OUTSIDE RECORDS SUMMARY | 2024-11-24 14:34 | XMS_ITS | Encounter Summary ---
Author Organization [facility] Address [address] [place] [address] Care Team Providers Care Jet Worker Name Role Phone Areli Gurrola MD Primary Care Provider Encounter Details Date Type Department Care Team (Latest Contact Info) Description 10/28/2002 Outpatient Historical [facility] [place] [address] [place] [address] Gordon Cabral MD NO ADDRESS ON FILE SURGERY FOLLOWUP, UNSPEC (Primary Dx) Social History Tobacco Use Types Packs/Day Years Used Date Smoking Tobacco: Never Assessed Comments Unknown Sex and Gender Information Value Date Recorded Sex Assigned at Not on file Legal Sex Female 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
--- OUTSIDE RECORDS SUMMARY | 2024-11-24 14:34 | XMS_ITS | Encounter Summary ---
Author Organization [facility] Address [address] [place] [address] Care Team Providers Care Handle Bender Name Role Phone Areli Gurrola MD Primary Care Provider Encounter Details Date Type Department Care Team (Late st Contact Info) Description 07/07/[address] [facility] [address] [place] [address] 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
--- OUTSIDE RECORDS SUMMARY | 2024-11-24 14:34 | XMS_ITS | Encounter Summary ---
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
--- OUTSIDE RECORDS SUMMARY | 2024-11-24 14:34 | XMS_ITS | Encounter Summary ---
Author Organization [facility] Address [address] [place] [address] Care Team Providers Care Plate Washer Name Role Phone Areli Gurrola MD Primary Care Provider Encounter Details Date Type Department Care Team (Latest Contact Info) Description 02/02/1999 Outpatient Historical [facility] [address] [place] [address] Alumno, Gibran Lynn MD [address] [place] [address] Sprain and strain of other specified sites of shoulder and upper arm (Primary Dx); Hx musculoskletl dis NEC Social History Tobacco Use Types Packs/Day Years Used Date Smoking Tobacco: Never Assessed Comments Unknown Sex and Gender Information Value Date Recorded Sex Assigned at Not on file Legal Sex Female 3:40 AM ADOBE LAYER Gender Identity Not on file Sexual Orientation [...] documented as of this encounter Care Teams Plate Washer Relationship Specialty Start Date End Date Areli Gurrola MD [address] [place] [address] PCP - General Specialist 08/12/19 documented as of this encounter
--- OUTSIDE RECORDS SUMMARY | 2024-11-24 14:34 | XMS_ITS | Encounter Summary ---
Author Organization [facility] Address [address] [place] [address] Care Team Providers Care Piano Regulator Name Role Phone Areli Gurrola MD Primary Care Provider Encounter Details Date Type Department Care Team (Latest Contact Info) Description 07/26/1998 Outpatient Historical [facility] [place] [facility] [place] Charli Perez MD NO ADDRESS ON FILE Other specified aftercare following surgery (Primary Dx) Social History Tobacco Use Types Packs/Day Years Used Date Smoking Tobacco: Never Assessed Comments Unknown Sex and Gender Information Value Date Recorded Sex Assigned at Not on file Legal Sex Female 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
--- OUTSIDE RECORDS SUMMARY | 2024-11-24 14:34 | XMS_ITS | Encounter Summary ---
Author Organization [facility] Address [address] [place] [address] Care Team Providers Care Golf Range Attendant Name Role Phone Areli Gurrola MD Primary Care Provider Encounter Details Date Type Department Care Team (Latest Contact Info) Description 07/06/2004 Outpatient Historical [facility] [address] [place] [address] Trell York MD [address] [place] [phone] DYSTHYMIC DISORDER (Primary Dx); BACKACHE NOS; CERVICALGIA Social History Tobacco Use Types Packs/Day Years Used Date Smoking Tobacco: Never Assessed Comments Unknown Sex and Gender Information Value Date Recorded Sex Assigned at Not on file Legal Sex Female 3:40 AM FORKLIFT MATERIAL HANDLER Gender Identity Not on file Sexual [...] documented as of this encounter Care Teams Golf Range Attendant Relationship Specialty Start Date End Date Areli Gurrola MD [address] [facility] [place] [address] PCP - General Specialist 08/12/19 documented as of this encounter
--- OUTSIDE RECORDS SUMMARY | 2024-11-24 14:34 | XMS_ITS | Encounter Summary ---
Author Organization [facility] Address [address] [place] [address] Care Team Providers Care Forest And Conservation Worker Name Role Phone Areli Gurrola MD Primary Care Provider Encounter Details Date Type Department Care Team (Latest Contact Info) Description 10/14/2002 Outpatient Historical [facility] [address] [place] [address] Trell York MD [address] [place] [phone] ACUTE URI NOS (Primary Dx); COUGH Social History Tobacco Use Types Packs/Day Years Used Date Smoking Tobacco: Never Assessed Comments Unknown Sex and Gender Information Value Date Recorded Sex Assigned at Not on file Legal 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
--- OUTSIDE RECORDS SUMMARY | 2024-11-24 14:34 | XMS_ITS | Encounter Summary ---
Author Organization [facility] Address [address] [place] [address] Care Team Providers Care Major Appliance Assembly Supervisor Name Role Phone Areli Gurrola MD Primary Care Provider Encounter Details Date Type Department Care Team (Latest Contact Info) Description 07/05/1998 Outpatient Historical [facility] Charli Perez MD NO ADDRESS ON FILE Other specified aftercare following surgery (Primary Dx) Social History Tobacco Use Types Packs/Day Years Used Date Smoking Tobacco: Never Assessed Comments Unknown Sex and Gender Information Value Date Recorded Sex Assigned at Not on file Legal Sex Female 3:40 AM QUARTER BACKER Gender Identity Not on file Sexual Orientation [...] documented as of this encounter Care Teams Major Appliance Assembly Supervisor Relationship Specialty Start Date End Date Areli Gurrola MD [address] [place] [address] PCP - General Specialist 08/12/19 documented as of this encounter
--- OUTSIDE RECORDS SUMMARY | 2024-11-24 14:34 | XMS_ITS | Encounter Summary ---
Author Organization [facility] Address [address] [place] [address] Care Team Providers Care Category Specialist Name Role Phone Areli Gurrola MD Primary Care Provider Encounter Details Date Type Department Care Team (Latest Contact Info) Description 02/14/1999 Outpatient Historical [facility] Imaging Services-[facility] [place] [address] [place] [address] AlumnoGibran MD [address] [place] [address] Lumbago (Primary Dx) Social History Tobacco Use Types Packs/Day Years Used Date Smoking Tobacco: Never Assessed Comments Unknown Sex and Gender Information Value Date Recorded Sex Assigned at Not on file Legal Sex Female 3:40 AM INSPECTOR ALUMINUM BOAT Gender Identity Not on file Sexual Orientation Not on file documented as of this encounter Plan of Treatment Not on file documented as of this encounter Visit Diagnoses Diagnosis Lumbago- Primary documented in this encounter Additional Health Concerns Infection Onset Date Last Indicated Resolved Time R/O COVID-19 01/31/2020 01/31/2020 02/02/2020 10:3 2 AM CDT documented as of this encounter Care Teams Category Specialist Relationship Specialty Start Date End Date Areli Gurrola MD [address] [place] [address] PCP - General Specialist 08/12/19 documented as of this encounter
--- OUTSIDE RECORDS SUMMARY | 2024-11-24 14:34 | XMS_ITS | Encounter Summary ---
Author Organization [facility] Address [address] [place] [address] Care Team Providers Care Packer Inspector Name Role Phone Areli Gurrola MD Primary Care Provider Encounter Details Date Type Department Care Team (Late st Contact Info) Description 10/27/2002 Emergency [facility] [address] [place] [address] Cira Archibald MD NO ADDRESS ON FILE FEMALE GENITAL SYMPTOMS NOS (Primary Dx) Social History Tobacco Use Types Packs/Day Years Used Date Smoking Tobacco: Never Assessed Comments Unknown Sex and Gender Information Value Date Recorded Sex Assigned at Not on file Legal Sex Female 3:40 AM WELDER APPRENTICE Gender Identity Not on file Sexual [...] documented as of this encounter Care Teams Packer Inspector Relationship Specialty Start Date End Date Areli Gurrola MD [address] [place] [address] PCP - General Specialist 08/12/19 documented as of this encounter
--- OUTSIDE RECORDS SUMMARY | 2024-11-24 14:34 | XMS_ITS | Encounter Summary ---
Author Organization [facility] Address [address] [place] [address] Care Team Providers Care Human Resources District Manager Name Role Phone Areli Gurrola MD Primary Care Provider Encounter Details Date Type Department Care Team (Latest Contact Info) Description 02/05/2003 Outpatient Historical [facility] [place] [address] [place] [address] Gordon Cabral MD NO ADDRESS ON FILE SURGERY FOLLOWUP, UNSPEC (Primary Dx) Social History Tobacco Use Types Packs/Day Years Used Date Smoking Tobacco: Never Assessed Comments Unknown Sex and Gender Information Value Date Recorded Sex Assigned at Not on file Legal Sex Female 3:40 AM SYSTEMS QA ANALYST Gender Identity Not on file Sexual [...] documented as of this encounter Care Teams Human Resources District Manager Relationship Specialty Start Date End Date Areli Gurrola MD [address] [facility] [place] [address] PCP - General Specialist 08/12/19 documented as of this encounter
--- OUTSIDE RECORDS SUMMARY | 2024-11-24 14:35 | XMS_ITS | Encounter Summary ---
Author Organization [facility] Address [address] [place] [address] Care Team Providers Care Cane Flume Watcher Name Role Phone Areli Gurrola MD Primary Care Provider Encounter Details Date Type Department Care Team (Latest Contact Info) Description 04/10/2002 Outpatient Historical [facility] [address] [facility] [address] [place] [address] Gildardo Ace MD [address] [place] [phone] ABDOMINAL PAIN EPIGASTRIC (Primary Dx) Social History Tobacco Use Types Packs/Day Years Used Date Smoking Tobacco: Never Assessed Comments Unknown Sex and Gender Information Value Date Recorded Sex Assigned at Not on file Legal 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
--- OUTSIDE RECORDS SUMMARY | 2024-11-24 14:35 | XMS_ITS | Encounter Summary ---
Author Organization [facility] Address [address] [place] [address] Care Team Providers Care Heavy Rail Train Operator Name Role Phone Areli Gurrola MD Primary Care Provider Encounter Details Date Type Department Care Team (Latest Contact Info) Description 03/20/2002 Outpatient Historical [facility] [address] [place] [address] Trell York MD [address] [place] [phone] ESOPHAGITIS, UNSPECIFIED (Primary Dx); CERVICALGIA; UNSPEC CONSTIPATION Social History Tobacco Use Types Packs/Day Years Used Date Smoking Tobacco: Never Assessed Comments Unknown Sex and Gender Information Value Date Recorded Sex Assigned at Not on file Legal Sex Female 3:40 AM KILN WORKER Gender Identity Not on file Sexual [...] as of this encounter Care Teams Heavy Rail Train Operator Relationship Specialty Start Date End Date Areli Gurrola MD [address] [facility] [place] [address] PCP - General Specialist 08/12/19 documented as of this encounter
--- OUTSIDE RECORDS SUMMARY | 2024-11-24 14:35 | XMS_ITS | Encounter Summary ---
Author Organization [facility] Address [address] [place] [address] Care Team Providers Care Concrete Wall Grinder Operator Name Role Phone Areli Gurrola MD Primary Care Provider Encounter Details Date Type Department Care Team (Latest Contact Info) Description 08/25/2002 Outpatient Historical [facility] [address] [place] [address] Trell York MD [address] [place] [phone] INSOMNIA NEC (Primary Dx); OTHER MALAISE AND FATIGUE; NEUROTIC DEPRESSION; CERVICALGIA Social History Tobacco Use Types Packs/Day Years Used Date Smoking Tobacco: Never Assessed Comments Unknown Sex and Gender Information Value Date Recorded Sex Assigned at Not on file Legal Sex Female 3:40 AM COLLATERAL SPECIALIST Gender Identity Not on file Sexual [...] as of this encounter Care Teams Concrete Wall Grinder Operator Relationship Specialty Start Date End Date Areli Gurrola MD [address] [facility] [place] [address] PCP - General Specialist 08/12/19 documented as of this encounter
--- OUTSIDE RECORDS SUMMARY | 2024-11-24 14:35 | XMS_ITS | Encounter Summary ---
Author Organization [facility] Address [address] [place] [address] Care Team Providers Care Shaker Flatwork Name Role Phone Areli Gurrola MD Primary Care Provider Encounter Details Date Type Department Care Team (Latest Contact Info) Description 12/18/2002 Outpatient Historical [facility] [id number] [place] [address] Gordon Cabral MD NO ADDRESS ON FILE PREOP EXAM OTHER SPECIFIED (Primary Dx) Social History Tobacco Use Types Packs/Day Years Used Date Smoking Tobacco: Never Assessed Comments Unknown Sex and Gender Information Value Date Recorded Sex Assigned at Not on file Legal Sex Female 3:40 AM MORTICIAN HELPER Gender Identity Not on file Sexual [...] documented as of this encounter Care Teams Shaker Flatwork Relationship Specialty Start Date End Date Areli Gurrola MD [address] [place] [address] PCP - General Specialist 08/12/19 documented as of this encounter
--- OUTSIDE RECORDS SUMMARY | 2024-11-24 14:35 | XMS_ITS | Encounter Summary ---
Author Organization [facility] Address [address] [place] [address] Care Team Providers Care Controller Repairer And Tester Name Role Phone Areli Gurrola MD Primary Care Provider Encounter Details Date Type Department Care Team (Latest Contact Info) Description 07/29/2001 Outpatient Historical [facility] [address] [place] [address] Trell York MD [address] [place] [phone] COMMON MIGRAINE W/O MENTN INTRACT (Primary Dx); LUMBAGO Social History Tobacco Use Types Packs/Day Years Used Date Smoking Tobacco: Never Assessed Comments Unknown Sex and Gender Information Value Date Recorded Sex Assigned at Not on file Legal Sex Female 3:40 AM POLICEMAN Gender Identity Not on file Sexual Orientation [...] documented as of this encounter Care Teams Controller Repairer And Tester Relationship Specialty Start Date End Date Areli Gurrola MD [address] [facility] [place] [address] PCP - General Specialist 08/12/19 documented as of this encounter
--- OUTSIDE RECORDS SUMMARY | 2024-11-24 14:35 | XMS_ITS | Encounter Summary ---
Author Organization [facility] Address [address] [place] [address] Care Team Providers Care Sizer Hand Name Role Phone Areli Gurrola MD Primary Care Provider Encounter Details Date Type Department Care Team (Latest Contact Info) Description 01/20/2002 Outpatient 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
--- OUTSIDE RECORDS SUMMARY | 2024-11-24 14:35 | XMS_ITS | Encounter Summary ---
Author Organization [facility] Address [address] [place] [address] Care Team Providers Care Remarketing Rep Name Role Phone Areli Gurrola MD Primary Care Provider Encounter Details Date Type Department Care Team (Latest Contact Info) Description 12/04/2001 Outpatient [facility] [address] [place] [address] Trell York MD [address] [place] [phone] ACUTE BRONCHITIS (Primary Dx); COUGH Social History Tobacco Use Types Packs/Day Years Used Date Smoking Tobacco: Never Assessed Comments Unknown Sex and Gender Information Value Date Recorded Sex Assigned at Not on file Legal Sex Female 3:40 AM CONCRETE BUCKET UNLOADER Gender Identity Not on file Sexual Orientation Not on file documented as of this encounter Plan of Treatment Not on file documented as of this encounter Visit Diagnoses Diagnosis Acute bronchitis- Primary Cough documented in this encounter Additional Health Concerns Infection Onset Date Last Indicated Resolved Time R/O COVID-19 01/31/2020 01/31/2020 02/02/2020 10:3 2 AM CDT documented as of this encounter Care Teams Remarketing Rep Relationship Specialty Start Date End Date Areli Gurrola MD [address] [facility] [address] PCP - General Specialist 08/12/19 documented as of this encounter
--- OUTSIDE RECORDS SUMMARY | 2024-11-24 14:35 | XMS_ITS | Encounter Summary ---
Author Organization [facility] Address [address] [place] [address] Care Team Providers Care Director Of Public Health Name Role Phone Areli Gurrola MD Primary Care Provider Encounter Details Date Type Department Care Team (Latest Contact Info) Description 11/25/2002 Outpatient [facility] [place] [address] [place] [address] Gordon Cabral MD NO ADDRESS ON FILE DYSMENORRHEA (Primary Dx) Social History Tobacco Use Types Packs/Day Years Used Date Smoking Tobacco: Never Assessed Comments Unknown Sex and Gender Information Value Date Recorded Sex Assigned at Not on file Legal Sex Female 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 Gender Identity Not on file Sexual Orientation Not on file documented as of this encounter Plan of Treatment Not on file documented as of this encounter Visit Diagnoses Diagnosis Dysmenorrhea- Primary documented in this encounter Additional Health Concerns Infection Onset Date Last Indicated Resolved Time R/O COVID-19 01/31/2020 01/31/2020 02/02/2020 10:3 2 AM CDT documented as of this encounter Care Teams Director Of Public Health Relationship Specialty Start Date End Date Areli Gurrola MD [address] [facility] [place] [address] PCP - General Specialist 08/12/19 documented as of this encounter
--- OUTSIDE RECORDS SUMMARY | 2024-11-24 14:35 | XMS_ITS | Encounter Summary ---
Author Organization [facility] Address [address] [place] [address] Care Team Providers Care Direct Support Staff Name Role Phone Areli Gurrola MD Primary Care Provider Encounter Details Date Type Department Care Team (Latest Contact Info) Description 01/09/2002 Outpatient Historical [facility] [address] [place] [address] Trell York MD [address] [place] [phone] HEADACHE (Primary Dx); CERVICALGIA Social History Tobacco Use Types Packs/Day Years Used Date Smoking Tobacco: Never Assessed Comments Unknown Sex and Gender Information Value Date Recorded Sex Assigned at Not on file Legal Sex Female 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 Gender Identity Not on file Sexual Orientation Not on file documented as of this encounter Plan of Treatment Not on file documented as of this encounter Visit Diagnoses Diagnosis Headache(784.0)- Primary Headache Cervicalgia documented in this encounter Additional Health Concerns Infection Onset Date Last Indicated Resolved Time R/O COVID-19 01/31/2020 01/31/2020 02/02/2020 10:3 2 AM CDT documented as of this encounter Care Teams Direct Support Staff Relationship Specialty Start Date End Date Areli Gurrola MD [address] [place] [address] PCP - General Specialist 08/12/19 documented as of this encounter
--- OUTSIDE RECORDS SUMMARY | 2024-11-24 14:35 | XMS_ITS | Encounter Summary ---
Author Organization [facility] Address [address] [place] [address] Care Team Providers Care Senior Court Office Assistant Name Role Phone Areli Gurrola MD Primary Care Provider Encounter Details Date Type Department Care Team (Latest Contact Info) Description 07/16/2001 Outpatient Historical [facility] [address] [place] [address] Trell York MD [address] [place] [phone] SWELLING OF LIMB (Primary Dx) Social History Tobacco Use Types Packs/Day Years Used Date Smoking Tobacco: Never Assessed Comments Unknown Sex and Gender Information Value Date Recorded Sex Assigned at Not on file Legal 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
--- OUTSIDE RECORDS SUMMARY | 2024-11-24 14:35 | XMS_ITS | Encounter Summary ---
Author Organization [facility] Address [address] [place] [address] Care Team Providers Care Cook Station Name Role Phone Areli Gurrola MD Primary Care Provider Encounter Details Date Type Department Care Team (Latest Contact Info) Description 04/07/2002 Outpatient Historical [facility] [address] [place] [address] Trell York MD [address] [place] [phone] URTICARIA NOS (Primary Dx) Social History Tobacco Use Types Packs/Day Years Used Date Smoking Tobacco: Never Assessed Comments Unknown Sex and Gender Information Value Date Recorded Sex Assigned at Not on file Legal Sex Female 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 Gender Identity Not on file Sexual Orientation Not on file documented as of this encounter Plan of Treatment Not on file documented as of this encounter Visit Diagnoses Diagnosis Urticaria, unspecified- Primary documented in this encounter Additional Health Concerns Infection Onset Date Last Indicated Resolved Time R/O COVID-19 01/31/2020 01/31/2020 02/02/2020 10:3 2 AM CDT documented as of this encounter Care Teams Cook Station Relationship Specialty Start Date End Date Areli Gurrola MD [address] [facility] [place] [address] PCP - General Specialist 08/12/19 documented as of this encounter
--- OUTSIDE RECORDS SUMMARY | 2024-11-24 14:35 | XMS_ITS | Encounter Summary ---
Author Organization [facility] Address [address] [place] [address] Care Team Providers Care Health Services Rn Name Role Phone Areli Gurrloa MD Primary Care Provider Encounter Details Date Type Department Care Team (Latest Contact Info) Description 12/18/2002 Outpatient [facility] [place] [address] [place] [address] Gordon Cabral MD NO ADDRESS ON FILE PREOP EXAM OTHER SPECIFIED (Primary Dx); Excessive menstruation; FEMALE GENITAL SYMPTOMS NOS Social History Tobacco Use Types Packs/Day Years Used Date Smoking Tobacco: Never Assessed Comments Unknown Sex and Gender Information Value Date Recorded Sex Assigned at Not on file Legal Sex Female 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
--- OUTSIDE RECORDS SUMMARY | 2024-11-24 14:35 | XMS_ITS | Encounter Summary ---
Author Organization [facility] Address [address] [place] [address] Care Team Providers Care Family Practice Nurse Practitioner Name Role Phone Areli Gurrola MD Primary Care Provider Encounter Details Date Type Department Care Team (Latest Contact Info) Description 11/20/2001 Outpatient Historical [facility] [address] [place] [address] Trell York MD [address] [place] [phone] LUMBAGO (Primary Dx); SEBACEOUS CYST Social History Tobacco Use Types Packs/Day Years Used Date Smoking Tobacco: Never Assessed Comments Unknown Sex and Gender Information Value Date Recorded Sex Assigned at Not on file Legal Sex Female 3:40 AM MANAGER FACILITY Gender Identity Not on file Sexual Orientation Not on file documented as of this encounter Plan of Treatment Not on file documented as of this encounter Visit Diagnoses Diagnosis Lumbago- Primary Sebaceous cyst documented in this encounter Additional Health Concerns Infection Onset Date Last Indicated Resolved Time R/O COVID-19 01/31/2020 01/31/2020 02/02/2020 10:3 2 AM CDT documented as of this encounter Care Teams Family Practice Nurse Practitioner Relationship Specialty Start Date End Date Areli Gurrola MD [address] [place] [phone] PCP - General Specialist 08/12/19 documented as of this encounter
--- OUTSIDE RECORDS SUMMARY | 2024-11-24 14:35 | XMS_ITS | Encounter Summary ---
Author Organization [facility] Address [address] [place] [address] Care Team Providers Care Career And Transition Teacher Name Role Phone Areli Gurrola MD Primary Care Provider Encounter Details Date Type Department Care Team (Late st Contact Info) Description 10/30/2002 Emergency [facility] Emergency Department [address] [place] [address] Tomsá Jade MD NO ADDRESS ON FILE FEMALE GENITAL SYMPTOMS NOS (Primary Dx) Social History Tobacco Use Types Packs/Day Years Used Date Smoking Tobacco: Never Assessed Comments Unknown Sex and Gender Information Value Date Recorded Sex Assigned at Not on file Legal 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
--- OUTSIDE RECORDS SUMMARY | 2024-11-24 14:35 | XMS_ITS | Encounter Summary ---
Author Organization [facility] Address [address] [place] [address] Care Team Providers Care Paper Guillotine Operator Name Role Phone Areli Gurrola MD Primary Care Provider Encounter Details Date Type Department Care Team (Latest Contact Info) Description 10/31/2002 Outpatient Historical [facility] [place] [address] [place] [address] Gordon Cabral MD NO ADDRESS ON FILE SURGERY FOLLOWUP, UNSPEC (Primary Dx) Social History Tobacco Use Types Packs/Day Years Used Date Smoking Tobacco: Never Assessed Comments Unknown Sex and Gender Information Value Date Recorded Sex Assigned at Not on file Legal Sex Female 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
--- OUTSIDE RECORDS SUMMARY | 2024-11-24 14:35 | XMS_ITS | Encounter Summary ---
Author Organization [facility] Address [address] [place] [address] Care Team Providers Care Shoe Designer Name Role Phone Areli Gurrola MD Primary Care Provider Encounter Details Date Type Department Care Team (Latest Contact Info) Description 07/30/2002 Outpatient Historical [facility] [address] [place] [address] Trell York MD [address] [place] [phone] INSOMNIA NEC (Primary Dx); NEUROTIC DEPRESSION; LUMBAGO Social History Tobacco Use Types Packs/Day Years Used Date Smoking Tobacco: Never Assessed Comments Unknown Sex and Gender Information Value Date Recorded Sex Assigned at Not on file Legal Sex Female 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
--- OUTSIDE RECORDS SUMMARY | 2024-11-24 14:35 | XMS_ITS | Encounter Summary ---
Author Organization [facility] Address [address] [place] [address] Care Team Providers Care Director Property Name Role Phone Areli Gurrola MD Primary Care Provider Encounter Details Date Type Department Care Team (Latest Contact Info) Description 12/02/2002 Outpatient [facility] [place] [address] [place] [address] Gordon Cabral MD NO ADDRESS ON FILE FEMALE GENITAL SYMPTOMS NOS (Primary Dx) Social History Tobacco Use Types Packs/Day Years Used Date Smoking Tobacco: Never Assessed Comments Unknown Sex and Gender Information Value Date Recorded Sex Assigned at Not on file Legal Sex Female 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
--- OUTSIDE RECORDS SUMMARY | 2024-11-24 14:35 | XMS_ITS | Encounter Summary ---
Author Organization [facility] Address [address] [place] [address] Care Team Providers Care Professor Of Communication And Writing Name Role Phone Areli Gurrola MD Primary Care Provider Encounter Details Date Type Department Care Team (Latest Contact Info) Description 07/09/2002 Outpatient Historical [facility] [address] [place] [address] Trell York MD [address] [place] [phone] OTHER MALAISE AND FATIGUE (Primary Dx); CERVICALGIA Social History Tobacco Use Types Packs/Day Years Used Date Smoking Tobacco: Never Assessed Comments Unknown Sex and Gender Information Value Date Recorded Sex Assigned at Not on file Legal Sex Female 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
--- OUTSIDE RECORDS SUMMARY | 2024-11-24 14:35 | XMS_ITS | Encounter Summary ---
Author Organization [facility] Address [address] [place] [address] Care Team Providers Care Separator Operator Name Role Phone Areli Gurrola MD Primary Care Provider Encounter Details Date Type Department Care Team (Latest Contact Info) Description 03/26/2002 Outpatient Historical [facility] [address] [place] [address] Trell York MD [address] [place] [phone] CERVICALGIA (Primary Dx); ABDOMINAL PAIN UNSPEC SITE Social History Tobacco Use Types Packs/Day Years Used Date Smoking Tobacco: Never Assessed Comments Unknown Sex and Gender Information Value Date Recorded Sex Assigned at Not on file Legal Sex Female 3:40 AM COLLEGE OR UNIVERSITY DEPARTMENT HEAD Gender Identity Not on file Sexual Orientation [...] documented as of this encounter Care Teams Separator Operator Relationship Specialty Start Date End Date Areli Gurrola MD [address] [facility] [place] [address] PCP - General Specialist 08/12/19 documented as of this encounter
--- OUTSIDE RECORDS SUMMARY | 2024-11-24 14:35 | XMS_ITS | Encounter Summary ---
Author Organization [facility] Address [address] [place] [address] Care Team Providers Care Consumer Relations Complaint Clerk Name Role Phone Areli Gurrola MD Primary Care Provider Encounter Details Date Type Department Care Team (Late st Contact Info) Description 04/14/2002 Outpatient Historical [facility] [address] [place] [address] Miguelangel Mas, NO ADDRESS ON FILE SPRAIN OF ANKLE NOS (Primary Dx) Social History Tobacco Use Types Packs/Day Years Used Date Smoking Tobacco: Never Assessed Comments Unknown Sex and Gender Information Value Date Recorded Sex Assigned at Not on file Legal Sex Female 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
--- OUTSIDE RECORDS SUMMARY | 2024-11-24 14:35 | XMS_ITS | Encounter Summary ---
Author Organization [facility] Address [address] [place] [address] Care Team Providers Care Telecommunications Manager Name Role Phone Areli Gurrola MD Primary Care Provider Encounter Details Date Type Department Care Team (Late st Contact Info) Description 04/14/2002 Outpatient Historical [facility] [address] [place] [address] Miguelangel Mas, NO ADDRESS ON FILE JOINT PAIN-ANKLE (Primary Dx) Social History Tobacco Use Types Packs/Day Years Used Date Smoking Tobacco: Never Assessed Comments Unknown Sex and Gender Information Value Date Recorded Sex Assigned at Not on file Legal Sex Female 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
--- OUTSIDE RECORDS SUMMARY | 2024-11-24 14:35 | XMS_ITS | Encounter Summary ---
Author Organization [facility] Address [address] [place] [address] Care Team Providers Care Damper Worker Name Role Phone Areli Gurrola MD Primary Care Provider Encounter Details Date Type Department Care Team (Latest Contact Info) Description 10/01/2002 Outpatient Historical [facility] [address] [place] [address] Trell York MD [address] [place] [phone] ACUTE SINUSITIS NOS (Primary Dx) Social History Tobacco Use Types Packs/Day Years Used Date Smoking Tobacco: Never Assessed Comments Unknown Sex and Gender Information Value Date Recorded Sex Assigned at Not on file Legal Sex Female 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
--- OUTSIDE RECORDS SUMMARY | 2024-11-24 14:35 | XMS_ITS | Encounter Summary ---
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
--- OUTSIDE RECORDS SUMMARY | 2024-11-24 14:35 | XMS_ITS | Encounter Summary ---
Author Organization [facility] Address [address] [place] [address] Care Team Providers Care Alcohol And Drug Counselor Name Role Phone Areli Gurrola MD Primary Care Provider Encounter Details Date Type Department Care Team (Latest Contact Info) Description 08/20/2001 Outpatient Historical [facility] [address] [place] [address] Trell York MD [address] [place] [phone] ACUTE PHARYNGITIS (Primary Dx) Social History Tobacco Use Types Packs/Day Years Used Date Smoking Tobacco: Never Assessed Comments Unknown Sex and Gender Information Value Date Recorded Sex Assigned at Not on file Legal Sex Female 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
--- OUTSIDE RECORDS SUMMARY | 2024-11-24 14:35 | XMS_ITS | Encounter Summary ---
Author Organization [facility] Address [address] [place] [address] Care Team Providers Care Disability Counselor Name Role Phone Arlei Gurrola MD Primary Care Provider Encounter Details Date Type Department Care Team (Late st Contact Info) Description 06/27/2001 Outpatient Historical [facility] Gen Spec Surg [address] [address] Renan Martinez MD [address] [place] [phone] CHOLELITHIASIS NOS (Primary Dx); SURGERY FOLLOWUP, UNSPEC Social History Tobacco Use Types Packs/Day Years Used Date Smoking Tobacco: Never Assessed Comments Unknown Sex and Gender Information Value Date Recorded Sex Assigned at Not on file Legal Sex Female 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
--- OUTSIDE RECORDS SUMMARY | 2024-11-24 14:35 | XMS_ITS | Encounter Summary ---
Author Organization [facility] Address [address] [place] [address] Care Team Providers Care Cracker And Cookie Machine Operator Name Role Phone Areli Gurrola MD Primary Care Provider Encounter Details Date Type Department Care Team (Latest Contact Info) Description 10/21/2001 Outpatient Historical [facility] [address] [place] [address] Trell York MD [address] [place] [phone] NEUROTIC DEPRESSION (Primary Dx); LUMBAGO; ACUTE LARYNGOTRACH W OBSTR Social History Tobacco Use Types Packs/Day Years Used Date Smoking Tobacco: Never Assessed Comments Unknown Sex and Gender Information Value Date Recorded Sex Assigned at Not on file Legal Sex Female 3:40 AM RESOLUTE PROFESSIONAL Gender Identity Not on file Sexual [...] documented as of this encounter Care Teams Cracker And Cookie Machine Operator Relationship Specialty Start Date End Date Areli Gurrola MD [address] [facility] [place] [address] PCP - General Specialist 08/12/19 documented as of this encounter
--- NOTE | 2024-11-24 15:08 | W.ED.NAVMDI ---
HPI - Nausea/Vomiting/Diarrhea General: Chief complaint: Nausea/Vomiting/Diarrhea Stated complaint: n/v/d Time Seen by Provider: 11/24/24 14:48 Source: patient and EMS Mode of arrival: EMS Limitations: no limitations History of Present Illness: 59-year-old female states she has been having nausea vomiting diarrhea over the last 3 days. She states she has had multiple episodes of vomiting diarrhea. She states she has severe cramping pain she rates a 8 out of 10 she denies any worse improving factors denies any fevers. Associated nausea: Yes Associated symtoms: Reports nausea; Denies chest pain or headache(s) Related Data Home Medications ?Medication ?Instructions ?Recorded ?Confirmed albuterol sulfate 90 mcg/actuation 2 puff inhalation Q4H PRN 04/04/24 11/24/24 aerosol inhaler Shortness Of Breath Or Wheezing ziprasidone HCl 20 mg capsule 20 mg PO BID PRN Anxiety 07/23/24 11/24/24 buspirone 5 mg tablet 5 mg PO BID PRN Anxiety 09/11/24 11/24/24 tizanidine 4 mg capsule 4 mg PO Q8H PRN Spasms 09/11/24 11/24/24 epinephrine 0.3 mg/0.3 mL See Rx Instructions .Route .COMPLEX 11/24/24 11/24/24 injection, auto-injector furosemide 20 mg tablet 20 mg PO QAM PRN Edema 11/24/24 11/24/24 nitroglycerin 0.4 mg sublingual See Rx Instructions .Route .COMPLEX 11/24/24 11/24/24 tablet Previous Rx's ?Medication ?Instructions ?Recorded hydroxyzine HCl 25 mg tablet 25 mg PO Q8H PRN anxiety #10 tabs 07/23/24 multivitamin 1 tab PO DAILY #30 tabs 09/11/24 potassium chloride 10 mEq 10 meq PO DAILY diuretic use #30 10/09/24 tablet,extended release (Klor-Con) tabs Allergies Allergy/AdvReac Type Severity Reaction Status Date / Time venom-wasp Allergy Severe ALGY-Anaphy Verified 11/24/24 14:34 laxis Sulfa (Sulfonamide Allergy Intermediate Hives Verified 11/24/24 14:34 Antibiotics) aspirin Allergy Unknown Unknown Verified 11/24/24 14:34 NSAIDS (Non-Steroidal Allergy Unknown Unknown Verified 11/24/24 14:34 Anti-Inflamma sumatriptan (From Imitrex) Allergy Unknown Unknown Verified 11/24/24 14:34 ibuprofen (From NeoProfen Allergy UNKNOWN Verified 11/24/24 14:34 (ibuprofen lysn)(PF)) metoclopramide (From Reglan) Allergy ALGY-Joint Verified 11/24/24 14:34 Pain bupropion (From Wellbutrin) AdvReac Intermediate ALGY-Rash Verified 11/24/24 14:34 prednisone AdvReac Intermediate Heart rate Verified 11/24/24 14:34 was heavy. [place] sick. Cephalosporins AdvReac Unknown Unknown Verified 11/24/24 14:34 Review of Systems Const: Denies: fever(s), chills, body aches or change in appetite ENMT: Denies: throat pain or dental pain Card: Denies: chest pain Resp: Denies: dyspnea GI: Reports: abdominal pain, nausea, vomiting and diarrhea Musc: Denies: neck pain or back pain Skin/Breast: Denies: rash Neuro: Denies: headache(s) PFSH ED PFSH: Medical History PTSD (post-traumatic stress disorder) Suicidal ideation Cannabis dependence, episodic use Major depressive disorder, recurrent, severe with psychotic symptoms Nicotine dependence due to vaping tobacco product Vaping nicotine Chronic post-traumatic stress disorder Alcohol use disorder, severe, dependence Psychiatric care Uncontrolled type 2 diabetes with neuropathy Sacroiliitis H/O Belkys-Valenzuela syndrome (~07/2019) EGD at [facility] [place] [facility]. EGD 10/26 negative. Chronic back pain Congestive heart failure Diabetes mellitus MONTANO (nonalcoholic steatohepatitis) Borderline personality disorder Bilateral primary osteoarthritis of hip Surgical History History of hysterectomy History of esophagogastroduodenoscopy H/O colonoscopy H/O cervical spine surgery Family History Son Suicide September 2019 Other Cancer Hypertension Psychiatric illness Social History Smoking and tobacco/nicotine status: current every day tobacco/nicotine user cigarettes [ Other cigarette details: When vape breaks she returns to cigarettes] and e-cigarettes E-Cigarette Details: vaporizer device and with nicotine E-cig/vape details: 6000 puffs in each device, uses 3 per month Quit status (tobacco/nicotine): not considering quitting Second hand smoke exposure: Yes Alcohol intake: current Alcohol intake frequency: few times a month Alcohol type: hard liquor Substance/Drug Use: current Substance/Drug use frequency: daily Other substance/drug use details: medical card Adopted: No Caregiver/support person: Yes (cleans and runs errands) Lives independently: Yes Household members: none Housing: Apartment Marital status: Single Number of children: 2 Number of grandchildren: 0 Highest education level completed: Associate Degree: Occupational, Technical, Vocational Program 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 service: No Current occupational status: disabled Current occupational exposures/hazards: No Pets and animals: Yes Pets & animals: cat(s) Leisure activites: music, games and other Leisure activities details: watch a lot of movies Sexually active: No Do you think of yourself as: Straight/Heterosexual Current gender identity: Female Aparna/Oriental Orthodox: Taoism Special aparna needs: No Agree to transfusion: Yes Female Reproductive History: Para: 2 Spontaneous abortions: Yes (10) Physical Exam Const: COMMON NORMALS: no acute distress, patient oriented x3 and healthy appearing HENMT: COMMON NORMALS: normocephalic and atraumatic HEAD & SCALP: normocephalic and atraumatic Neck/C-Spine: COMMON NORMALS: full ROM and supple Chest: COMMONS NORMALS: normal inspection of the chest and normal palpation of entire chest wall Resp: COMMON NORMALS: normal respiratory effort, No retractions, No use of accessory muscles and clear to auscultation bilaterally AUSCULTATION: clear to auscultation bilaterally Cardio: COMMON NORMALS: regular rate, regular rhythm and No murmurs present (Cardio) RATE: regular rate RHYTHM: regular rhythm GI: COMMON NORMALS: Normal to inspection, nondistended, normoactive bowel sounds present, Soft to palpation, non-tender and no masses PALPATION: Yes Soft to palpation Extremity: COMMON NORMALS: normal to inspection and full ROM Neuro: COMMON NORMALS: patient oriented x3, moves all extremities and no focal motor deficits Psych: COMMON NORMALS: mental status grossly normal, Normal thought process present and cooperative THOUGHT PROCESS: Normal thought process present Skin: COMMON NORMALS: no rashes or lesions noted and no wounds GENERAL SKIN EXAM: no rashes or lesions noted Course Vital Signs: Vital signs: Vital Signs Temperature 98.9 F 11/24/24 14:29 Pulse Rate 94 11/24/24 14:29 Blood Pressure 135/74 11/24/24 14:29 Pulse Oximetry 99 11/24/24 16:19 Oxygen Delivery Me thod Room Air 11/24/24 16:19 MDM - Nausea/Vomiting/Diarrhea Medical Decision Making Patient presents here with abdominal pain CT does show colitis she does have elevated white count and lactate did give her sepsis bolus along with IV fluids spoke to hospitalist will admit at this time. Medical Records I reviewed the patient's medical records. Lab Data I reviewed the patient's lab results. 11/24/24 15:25 11/24/24 15:25 Radiology Impressions Abdomen/Pelvis CT 11/24/24 16:01 IMPRESSION: 1. Cirrhotic morphology of the liver with findings of portal hypertension. 2. Diffuse edematous wall thickening of the colon and to a lesser extent small bowel stomach. Mild splenomegaly, ascites, mesenteric edema, mesenteric and soft tissue anasarca. 3. Previous cholecystectomy. Some dilatation of the common bile duct greater than expected for post cholecystectomy patient and correlation with bilirubin recommended. 4. Postoperative and degenerative changes lumbar spine Laboratory Results WBC 23.42 10^3/uL (3.29-11.43) H 11/24/24 15:25 RBC 3.33 10^6/uL (3.85-5.65) L 11/24/24 15:25 Hgb 9.70 g/dL (11.27-16.99) L 11/24/24 15:25 Hct 28.5 % (36-47) L 11/24/24 15:25 MCV 85.6 fl (85-98) 11/24/24 15: MCH 29.1 pg (27-33) 11/24/24 15: MCHC 34.0 g/dL (30-55) 11/24/24 15: RDW 16.1 % (12.1-15.1) H 11/24/24 15:25 Plt Count 130 10^3/cmm (157-399) L 11/24/24 15: MPV 9.2 fL (7.4-10.4) 11/24/24 15:25 Neut % (Auto) 87.8 % 11/24/24 15:25 Lymph % (Auto) 2.8 % 11/24/24 15:25 [place] % (Auto) 7.9 % 11/24/24 15:25 Eos % (Auto) 0.3 % 11/24/24 15:25 Baso % (Auto) 0.3 % 11/24/24 15:25 Neut # (Auto) 20.56 10^3/uL (1.8-7.7) H 11/24/24 15:25 Lymph # (Auto) 0.7 10^3/uL (0.8-4.8) L 11/24/24 15:25 [place] # (Auto) 1.9 10^3/uL (0.2-0.9) H 11/24/24 15:25 Eos # (Auto) 0.1 10^3/uL (0.0-0.8) 11/24/24 15:25 Baso # (Auto) 0.1 10^3/uL (0.0-0.1) 11/24/24 15:25 Nucleated RBC % (auto) 0 % 11/24/24 15:25 Nucleated RBCs # 0.0 /100WBC 11/24/24 15:25 Sodium 134 mmol/L (136-145) L 11/24/24 15:25 Potassium 3.8 mmol/L (3.5-5.1) 11/24/24 15:25 Chloride 97 mmol/L (98-107) L 11/24/24 15:25 Carbon Dioxide 23 mmol/L (22-29) 11/24/24 15:25 Anion Gap 17.8 (5-19) 11/24/24 15:25 BUN 17 mg/dL (6-20) 11/24/24 15:25 Creatinine 0.7 mg/dL (0.5-0.9) 11/24/24 15:25 GFR Calculation 86.2 mL/min (90-130) L 11/24/24 15:25 Glucose 70 mg/dL (65-115) 11/24/24 15:25 Calculated Osmolality 278 mOsm/kg (285-295) L 11/24/24 15:25 Lactic Acid 2.5 mmol/L (0.5-2.2) H 11/24/24 15:25 Calcium 8.2 mg/dL (8.5-10.5) L 11/24/24 15:25 Total Bilirubin 2.6 mg/dL (0.15-1.2) H 11/24/24 15:25 AST 37 U/L (0-32) H 11/24/24 15:25 ALT 20 U/L (0-33) 11/24/24 15:25 Alkaline Phosphatase 152 U/L (35-105) H 11/24/24 15:25 Total Protein 5.6 g/dL (6.6-8.7) L 11/24/24 15:25 Albumin 3.1 g/dL (3.5-5.2) L 11/24/24 15:25 Globulin 2.5 g/dL (1.3-4.6) 11/24/24 15:25 Lipase 42 U/L (13-60) 11/24/24 15:25 All radiology interpretation(s) finalized by discharge Discharge Plan Discharge Patient Disposition: Admitted As Inpatient Admit Provider: Florecita Bai Clinical Impression: Colitis Condition: Stable Coding Level of Care Code ED Performance Test Consultant for Rober Arellano
[2024-11-24 15:32] LABS: Hematocrit 28.5 % (36-47); Hemoglobin 9.70 g/dL (11.27-16.99); Mean Corpuscular HGB Conc 34.0 g/dL (30-55); Mean Corpuscular Hemoglobin 29.1 pg (27-33); Mean Corpuscular Volume 85.6 fl (85-98); Nucleated Red Blood Cells % 0 %; Platelet Count 130 10^3/cmm (157-399); Red Blood Count 3.33 10^6/uL (3.85-5.65); White Blood Count 23.42 10^3/uL (3.29-11.43)
[2024-11-24] MEDS: morphine 4 mg/mL SDV 1 mL IVP (15:40)
[2024-11-24] MEDS: ondansetron 2 mg/ML SDV 2 mL 4 MG IVP (15:41)
[2024-11-24 15:56] LABS: Alanine Aminotransferase 20 U/L (0-33); Albumin Level 3.1 g/dL (3.5-5.2); Alkaline Phosphatase 152 U/L (35-105); Anion Gap 17.8 (5-19); Aspartate Amino Transferase 37 U/L (0-32); Blood Urea Nitrogen 17 mg/dL (6-20); Calcium 8.2 mg/dL (8.5-10.5); Carbon Dioxide 23 mmol/L (22-29); Chloride 97 mmol/L (98-107); Creatinine Clr Calc Pharmacy 100.3210; Globulin 2.5 g/dL (1.3-4.6); Glucose 70 mg/dL (65-115); Lipase 42 U/L (13-60); Osmolality Calculated 278 mOsm/kg (285-295); Potassium 3.8 mmol/L (3.5-5.1); Sodium 134 mmol/L (136-145); Total Protein 5.6 g/dL (6.6-8.7)
--- NOTE | 2024-11-24 16:01 | CTR_ITS ---
PROCEDURE INFORMATION: Exam: CT Abdomen And Pelvis With Contrast Exam date and time: 11/24/2024 4:59 PM Age: 59 years old Clinical indication: Abdominal pain; Localized; Lower; Prior surgery; Surgery date: 6+ months; Surgery type: Lumbar; Additional info: Lower abd pain with diarrhea x 4 days TECHNIQUE: Imaging protocol: Computed tomography of the abdomen and pelvis with contrast. Radiation optimization: All CT scans at this facility use at least one of these dose optimization techniques: automated exposure control; mA and/or kV adjustment per patient size (includes targeted exams where dose is matched to clinical indication); or iterative reconstruction. Contrast material: OMNI 350; Contrast volume: 100 ml; Contrast route: INTRAVENOUS (IV); COMPARISON: CT abdomen pelvis w con* [id number] 02/05/2020 4:51 PM RADIATION DOSE METRICS: Total DLP (mGy-cm): 547.15 FINDINGS: Lower chest: Heart size normal. Lungs are clear. Liver: Surface nodularity consistent with cirrhotic morphology. Fatty change. Stable hepatic cyst measuring 7.8 mm. Smaller portal vein with dilatation of the splenic vein and mesenteric veins. Some collateral veins. Gallbladder and biliary ducts: Status post cholecystectomy. Common bile duct measures up to 15 mm. This is distended for a post cholecystectomy patient. Correlation with bilirubin recommended Pancreas: Normal. No ductal dilation. Spleen: Mild splenomegaly. Adrenal glands: Normal. No mass. Kidneys and ureters: Normal. No hydronephrosis. Stomach and bowel: Diffuse wall thickening of small bowel particularly the cecum measuring up to 11 mm in thickness. Milder wall thickening of the small bowel stomach A [id number] amount of ascites. There is mesenteric edema /anasarca. This probably secondary to cirrhosis. This should be correlated clinically Appendix: No evidence of appendicitis. Intraperitoneal space: A [id number] amount of ascites. Mesenteric edema and anasarca. Vasculature: Mild atherosclerosis. Lymph nodes: Unremarkable. No enlarged lymph nodes. Urinary bladder: Unremarkable as visualized. Reproductive: Apparent hysterectomy. Bones/joints: Postoperative changes and degenerative changes. Schmorl's nodes deformity difficulty at L1 and L4. Soft tissues: Soft tissue anasarca CT/CT abdomen pelvis w con* [id number] IMPRESSION: 1. Cirrhotic morphology of the liver with findings of portal hypertension. 2. Diffuse edematous wall thickening of the colon and to a lesser extent small bowel stomach. Mild splenomegaly, ascites, mesenteric edema, mesenteric and soft tissue anasarca. 3. Previous cholecystectomy. Some dilatation of the common bile duct greater than expected for post cholecystectomy patient and correlation with bilirubin recommended. 4. Postoperative and degenerative changes lumbar spine
[2024-11-24 16:19] VITALS: O2SAT 99
--- NOTE | 2024-11-24 16:35 | PC.PHAR ---
Pt states right now she is only taking Tizanidine 4mg. Pt has not been able to keep anything down for 4 days and has no medication for nausea/vomiting.
[2024-11-24 16:48] LABS: Lactic Sepsis W/Reflex 2.5 mmol/L (0.5-2.2)
[2024-11-24] MEDS: HYDROmorphone 0.5 MG/0.5 ML INJ IVP (16:51)
[2024-11-24] MEDS: iohexol 350 mg/mL 500 mL Btl (per mL) IV (17:02)
--- NOTE | 2024-11-24 17:52 | PC.NURSE ---
SEPSIS ALERT PER CHARLENE: PT WAS HARD STICK, LAB COULD NOT GET BLOOD. ULTRASOUND NEEDED FOR IV, BLOOD CULTURES ORDER, LAB COULD NOT GET BLOOD FOR THESE EITHER. PER CHARLENE, START ANTIBIOTICS AFTER 1 SET OF BLOOD CULTURES D/T SEPSIS ALERT.
[2024-11-24 18:22] LABS: Reflex Lactate Order REFLEX LACTIC ORDERD
[2024-11-24] MEDS: aztreonam 2,000 MG in sodium chloride 0.9% (plus) 100 ML 200 MG IV (18:32)
[2024-11-24 19:56] LABS: Lactic Acid level (Lactate) 2.6 mmol/L (0.5-2.2)
[2024-11-24 20:00] VITALS: BP 165/78; PULSE 86; RESP 16; TEMP 36.6; O2SAT 96
[2024-11-24 20:04] VITALS: PULSE 93; RESP 16; O2SAT 98
--- NOTE | 2024-11-24 20:08 | PM.HP ---
Providers/Chief Complaint Admitting Physician: Florecita Bai MD Primary Care Provider: Aida Vincent Chief Complaint: n/v/d History of Present Illness As per the previous notes and the patient Kay Calles is a 59 year old female with past medical history of alcohol dependence, borderline personality disorder, COPD, cervical myelopathy, lumbar disc disease, history of Belkys-Valenzuela tear, chronic back pain, nonalcoholic steatohepatitis, chronic iron deficiency anemia came with around 4 to 5 days of history of nausea vomiting and diarrhea. The patient also reported some fatty stools and on and off mixed with blood. Also reported some low-grade fever but not associated with high-grade or with chills. The patient did not report any night sweats or weight loss. No history of outside food or skin rash. Rest of the review of system is unremarkable No history of chest pain lower leg swellings shortness of breath. Patient currently drinks on and off but not to the point of binge drinking and history of smoking but has been cutting down. No other drug abuse Review of Systems General: Reports: 10 or more systems reviewed and unremarkable except in HPI and below Medications/Allergies Home Medications ?Medication ?Instructions ?Recorded ?Confirmed ?Last Taken ?Type albuterol sulfate 90 mcg/actuation 2 puff inhalation Q4H PRN 04/04/24 11/24/24 07/22/24 History aerosol inhaler Shortness Of Breath Or Wheezing hydroxyzine HCl 25 mg tablet 25 mg PO Q8H PRN anxiety #10 tabs 07/23/24 11/24/24 Unknown Rx ziprasidone HCl 20 mg capsule 20 mg PO BID PRN Anxiety 07/23/24 11/24/24 07/22/24 History buspirone 5 mg tablet 5 mg PO BID PRN Anxiety 09/11/24 11/24/24 Unknown History multivitamin 1 tab PO DAILY #30 tabs 09/11/24 11/24/24 Unknown Rx tizanidine 4 mg capsule 4 mg PO Q8H PRN Spasms 09/11/24 11/24/24 Unknown History potassium chloride 10 mEq 10 meq PO DAILY diuretic use #30 10/09/24 11/24/24 Unknown Rx tablet,extended release (Klor-Con) tabs epinephrine 0.3 mg/0.3 mL See Rx Instructions .Route .COMPLEX 11/24/24 11/24/24 Unknown History injection, auto-injector furosemide 20 mg tablet 20 mg PO QAM PRN Edema 11/24/24 11/24/24 Unknown History nitroglycerin 0.4 mg sublingual See Rx Instructions .Route .COMPLEX 11/24/24 11/24/24 Unknown History tablet Allergies Allergy/AdvReac Type Severity Reaction Status Date / Time venom-wasp Allergy Severe ALGY-Anaphy Verified 11/24/24 14:34 laxis Sulfa (Sulfonamide Allergy Intermediate Hives Verified 11/24/24 14:34 Antibiotics) aspirin Allergy Unknown Unknown Verified 11/24/24 14:34 NSAIDS (Non-Steroidal Allergy Unknown Unknown Verified 11/24/24 14:34 Anti-Inflamma sumatriptan (From Imitrex) Allergy Unknown Unknown Verified 11/24/24 14:34 ibuprofen (From NeoProfen Allergy UNKNOWN Verified 11/24/24 14:34 (ibuprofen lysn)(PF)) metoclopramide (From Reglan) Allergy ALGY-Joint Verified 11/24/24 14:34 Pain bupropion (From Wellbutrin) AdvReac Intermediate ALGY-Rash Verified 11/24/24 14:34 prednisone AdvReac Intermediate Heart rate Verified 11/24/24 14:34 was heavy. Colony sick. Cephalosporins AdvReac Unknown Unknown Verified 11/24/24 14:34 PFSH Acute PFSH: Medical History (Updated 11/24/24 @ 20:14 by Florecita Bai MD) PTSD (post-traumatic stress disorder) Suicidal ideation Cannabis dependence, episodic use Major depressive disorder, recurrent, severe with psychotic symptoms Nicotine dependence due to vaping tobacco product Vaping nicotine Chronic post-traumatic stress disorder Alcohol use disorder, severe, dependence Psychiatric care Uncontrolled type 2 diabetes with neuropathy Sacroiliitis H/O Belkys-Valenzuela syndrome (~07/2019) EGD at [facility]. EGD 10/26 negative. Chronic back pain Congestive heart failure Diabetes mellitus MONTANO (nonalcoholic steatohepatitis) Borderline personality disorder Bilateral primary osteoarthritis of hip Surgical History History of hysterectomy History of esophagogastroduodenoscopy H/O colonoscopy H/O cervical spine surgery Family History Son Suicide September 2019 Other Cancer Hypertension Psychiatric illness Social History Smoking and tobacco/nicotine status: current every day tobacco/nicotine user cigarettes [ Other cigarette details: When vape breaks she returns to cigarettes] and e-cigarettes E-Cigarette Details: vaporizer device and with nicotine E-cig/vape details: 6000 puffs in each device, uses 3 per month Quit status (tobacco/nicotine): not considering quitting Second hand smoke exposure: Yes Alcohol intake: current Alcohol intake frequency: few times a month Alcohol type: hard liquor Substance/Drug Use: current Substance/Drug use frequency: daily Other substance/drug use details: medical card Adopted: No Caregiver/support person: Yes (cleans and runs errands) Lives independently: Yes Household members: none Housing: Apartment Marital status: Single Number of children: 2 Number of grandchildren: 0 Highest education level completed: Associate Degree: Occupational, Technical, Vocational Program 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 service: No Current occupational status: disabled Current occupational exposures/hazards: No Pets and animals: Yes Pets & animals: cat(s) Leisure activites: music, games and other Leisure activities details: watch a lot of movies Sexually active: No Do you think of yourself as: Straight/Heterosexual Current gender identity: Female Aparna/Mormonism: Islam Special aparna needs: No Agree to transfusion: Yes Female Reproductive History: Para: 2 Spontaneous abortions: Yes (10) Vitals/I&O/Wt Last Vital Signs Temp 98.9 F 11/24/24 14:29 Pulse 93 11/24/24 20:04 Resp 16 11/24/24 20:04 BP 135/74 11/24/24 14:29 Pulse Ox 98 11/24/24 20:04 O2 Del Method Room Air 11/24/24 20:04 11/24/24 11/24/24 11/24/24 06:59 14:59 22:59 Intake Total 2750 / 2750 Balance 2750 / 2750 Weight last 48 hrs Weight 71.668 kg Physical Exam Narrative: General: Alert oriented x3, patient seen lying comfortably on room air HEENT: Normocephalic, atraumatic, EOMI, breathing any distress Cardio: Regular rate rhythm, normal S1-S2, no murmurs rubs gallops, JVD_normal Respiratory: Good bilateral air entry, no wheezes no rhonchi appreciated GI: Abdomen soft, moderately tender at the epigastric region and right and left subcostal areas at deep palpation however no organomegaly appreciated and normal bowel sounds Neuro: Cranial nerves II to XII intact, strength 5/5, sensation 5/5, no gross neurological deficit Behavior: Appropriate and cooperative Extremities: Pulses 2+, no edema, no cyanosis Skin: Visible skin intact, no rashes Data 11/24/24 15:25 11/24/24 15:25 Micro: Microbiology 11/24/24 17:19 Blood Culture - Preliminary Blood SPECIMEN COLLECTED A&P Assessment and plan 1. Sepsis: 2. Colitis: 3. Abnormal liver enzymes: 4. Thrombocytopenia: 5. Protein deficiency: 6. COPD (chronic obstructive pulmonary disease): 7. Fracture lumbar vertebra-closed: 8. Cervical myelopathy: 9. 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 Chronic back pain: 12. MONTANO (nonalcoholic steatohepatitis): Plan: Colitis: - Possible reason of sepsis, blood culture and urine culture stat -Lactate series - Stool studies with C. difficile ova and parasites WBCs - Ciprofloxacin and metronidazole for colitis - Adequate hydration Resume home medications however hold tizanidine due to interaction with the ciprofloxacin Adequate analgesia for back pain, cervical myelopathy and lumbar disc disease Monitor hemoglobin in the light of Belkys-Valenzuela syndrome GI prophylaxis with famotidine, milk of magnesia Ondansetron for nausea and vomiting Continue DuoNebs Continue multivitamins VTE: Heparin twice daily, In case of drop of hemoglobin or thrombocytopenia worsening to hold and placed on SCD PDMP PDMP Reviewed: Not Reviewed Attestations Medical Necessity Statement*: Kay Calles's hospital stay will require greater than 2 midnights for management of colitis and possible sepsis Time Spent in Patient Care: 16 - 35 minutes (>than 50% of time spent in counselling and/or direct pt care on unit). Other Attestations: Patient condition has been discussed at length with the patient/family, I have independently reviewed the chart labs imaging and diagnostics and EKG. I have discussed the goals of care and code status with the patient/family/NOK/legal field support representative, and documented accordingly. The patient/family has been informed about the current condition and further plan of care. Agreed with the plan of care and understood without any language barrier. This documentation was created by dragon spinning supervisor software. Every effort was made to ensure accuracy of spinning supervisor. Any obvious errors or omissions should be clarified with the author of the document. Coding Level of Care Code 87365 Diagnoses Sepsis A41.9 Colitis K52.9 Abnormal liver enzymes R74.8 Thrombocytopenia D69.6 Protein deficiency E46 COPD (chronic obstructive pulmonary disease) J44.9 Fracture lumbar vertebra-closed S32.009A Cervical myelopathy G95.9 Lumbar disc disease M51.9 Hx of Belkys-Valenzuela syndrome Z87.19 Chronic back pain M54.9; G89.29 MONTANO (nonalcoholic steatohepatitis) K75.81
[2024-11-24 20:52] VITALS: BP 143/66; PULSE 88; RESP 15; O2SAT 99
[2024-11-24 21:19] VITALS: BMI 31.9
[2024-11-24] MEDS: heparin 5,000 unit/mL INJ 1 mL 5000 UNIT SUBCUT (21:29)
[2024-11-24] MEDS: HYDROmorphone tab 2 MG TABLET PO (21:29)
[2024-11-24] MEDS: metroNIDAZOLE IV 500 MG/100 ML PREMIX 100 MG IV (21:30)
[2024-11-24 22:33] VITALS: PULSE 88
[2024-11-25] VITALS (15 sets, daily range): BP systolic 94–151; BP diastolic 53–75; PULSE 59–118; RESP 16–22; TEMP 36.8–37.6; O2SAT 94–100
[2024-11-25 01:04] LABS: Glucose Urine UA Negative (Normal); Nitrate Urine Negative (Negative)
[2024-11-25 01:17] LABS: Add Urine Microscopic? YES; Specific Gravity, Urine 1.062 (1.005-1.030); UA Manual Slide Review YES; UA Slide Review UA Slide Review Perf
[2024-11-25 04:37] LABS: Hematocrit 22.5 % (36-47); Hemoglobin 6.90 g/dL (11.27-16.99); Mean Corpuscular HGB Conc 30.7 g/dL (30-55); Mean Corpuscular Hemoglobin 28.6 pg (27-33); Mean Corpuscular Volume 93.4 fl (85-98); Nucleated Red Blood Cells % 0 %; Platelet Count 84 10^3/cmm (157-399); Red Blood Count 2.41 10^6/uL (3.85-5.65); White Blood Count 12.07 10^3/uL (3.29-11.43)
[2024-11-25] MEDS: metroNIDAZOLE IV 500 MG/100 ML PREMIX 100 MG IV ×3 (04:40→21:42)
[2024-11-25 04:55] LABS: Lactate (Lactic Acid level) 2.3 mmol/L (0.5-2.2)
[2024-11-25 05:05] LABS: Alanine Aminotransferase 14 U/L (0-33); Albumin Level 2.1 g/dL (3.5-5.2); Alkaline Phosphatase 98 U/L (35-105); Aspartate Amino Transferase 29 U/L (0-32); Blood Urea Nitrogen 14 mg/dL (6-20); Calcium 6.8 mg/dL (8.5-10.5); Carbon Dioxide 18 mmol/L (22-29); Chloride 99 mmol/L (98-107); Creatinine Clr Calc Pharmacy 140.5376; Globulin 2.0 g/dL (1.3-4.6); Glucose 119 mg/dL (65-115); Magnesium 1.7 mg/dL (1.7-2.3); Osmolality Calculated 266 mOsm/kg (285-295); Sodium 127 mmol/L (136-145); Thyroid Stimulating Hormone 1.93 uIU/mL (0.27-4.20); Total Protein 4.1 g/dL (6.6-8.7)
[2024-11-25 05:19] LABS: Anion Gap 13.5 (5-19); Potassium 3.5 mmol/L (3.5-5.1)
[2024-11-25] MEDS: HYDROmorphone tab 2 MG TABLET PO ×3 (08:21→20:55)
[2024-11-25] MEDS: heparin 5,000 unit/mL INJ 1 mL 5000 UNIT SUBCUT (08:21)
[2024-11-25] MEDS: multivitamin therapeutic Tablet 1 TAB PO (08:21)
--- NOTE | 2024-11-25 08:53 | P.PN_ITS ---
Subjective 2 Subjective: the patient was seen in the morning Vitals/I&O/Wt Last Vital Signs Temp 98.7 F 11/25/24 08:08 Pulse 66 11/25/24 08:08 Resp 16 11/25/24 08:08 BP 119/75 11/25/24 08:08 Pulse Ox 100 11/25/24 08:08 O2 Del Method Room Air 11/25/24 08:08 11/24/24 11/25/24 11/25/24 22:59 06:59 14:59 Intake Total 3290 / 3290 580 / 3870 1100 / 1100 Balance 3290 / 3290 580 / 3870 1100 / 1100 Weight last 48 hrs Weight 72.575 kg Weight 71.713 kg Weight 71.668 kg Physical Exam 2 Narrative: General: Alert oriented x3, patient seen lying comfortably on room air HEENT: Normocephalic, atraumatic, EOMI, breathing any distress Cardio: Regular rate rhythm, normal S1-S2, no murmurs rubs gallops, JVD_normal Respiratory: Good bilateral air entry, no wheezes no rhonchi appreciated GI: Abdomen soft, moderately tender at the epigastric region and right and left subcostal areas at deep palpation however no organomegaly appreciated and normal bowel sounds Neuro: Cranial nerves II to XII intact, strength 5/5, sensation 5/5, no gross neurological deficit Behavior: Appropriate and cooperative Extremities: Pulses 2+, no edema, no cyanosis Skin: Visible skin intact, no rashes Data 11/25/24 11:45 11/25/24 04:28 Micro: Microbiology 11/24/24 17:19 Blood Culture - Preliminary Blood SPECIMEN COLLECTED A&P Assessment and plan 1. Sepsis: 2. Colitis: 3. Abnormal liver enzymes: 4. Thrombocytopenia: 5. Protein deficiency: 6. COPD (chronic obstructive pulmonary disease): 7. Fracture lumbar vertebra-closed: 8. Cervical myelopathy: 9. 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 Chronic back pain: 12. MONTANO (nonalcoholic steatohepatitis): Plan: Colitis: - Possible reason of sepsis, blood culture preliminary negative - Lactate series to follow - Stool studies with C. difficile ova and parasites WBCs once - Ciprofloxacin and metronidazole for colitis - Adequate hydration Resume home medications however hold tizanidine due to interaction with the ciprofloxacin Adequate analgesia for back pain, cervical myelopathy and lumbar disc disease Monitor hemoglobin in the light of Belkys-Valenzuela syndrome GI prophylaxis with famotidine, milk of magnesia Ondansetron for nausea and vomiting Continue DuoNebs Continue multivitamins VTE: Hold heparin, SCD for VTE prophylax PDMP PDMP Reviewed: Not Reviewed Attestations 2 Medical Necessity Statement*: Kay Calles's hospital stay will require greater than 2 midnights for management of colitis Time Spent in Patient Care: 16 - 35 minutes (>than 50% of time sp ent in counselling and/or direct pt care on unit) . Other Attestations: Patient condition has been discussed at length with the patient/family, I have independently reviewed the chart labs imaging and diagnostics and EKG. the goals of care and code status with the patient/family/NOK/legal market survey representative, and documented accordingly. The patient/family has been informed about the current condition and further plan of care. Agreed with the plan of care and understood without any language barrier. This documentation was created by Songbird exploration driller software. Every effort was made to ensure accuracy of exploration driller. Any obvious errors or omissions should be clarified with the author of the document. Coding Level of Care Code 20624 Diagnoses Sepsis A41.9 Colitis K52.9 Abnormal liver enzymes R74.8 Thrombocytopenia D69.6 Protein deficiency E46 COPD (chronic obstructive pulmonary disease) J44.9 Fracture lumbar vertebra-closed S32.009A Cervical myelopathy G95.9 Lumbar disc disease M51.9 Hx of Belkys-Valenzuela syndrome Z87.19 Chronic back pain M54.9; G89.29 MONTANO (nonalcoholic steatohepatitis) K75.81
[2024-11-25] MEDS: pantoprazole 40 mg SDV IVP ×2 (09:42)
--- NOTE | 2024-11-25 10:00 | PC.CHAP ---
Pastoral Care Encounter/Spiritual Assessment Type of Contact [] Declined camera repair technician visit [] Patient/Family/Request visit [] Outpatient visit [] Follow-up visit [] Physician referral [] Code/Alert [x] Routine visit [] Staff referral [] Actively dying [] Patient sleeping [] Family support [] [] Out of room [] Palliative care [] [] Receiving care in room [] Pre-surgical visit [] Trauma [] Long length of stay [] ICU visit [] Other: Relational/Emotional Strength [x] Patient feels connected with others/family/visitors/staff [x] Distress [] Loneliness/isolation [] Abandonment Spirituality of Patient [x] Person of Aparna [] Attends Islam of their Aparna [x] Believes in Prayer [] Reads Bible or Rastafari materials [] There are Spiritual issues to be addressed Switchboard Clerk Interventions [x] Prayer [x] Active listening [x] Non-anxious presence [x] Spiritual/emotional support [x] Crisis/trauma care [x] Spiritual counseling [] Bereavement support [] Provided bereavement packet [] Provided Bible/devotional materials [] Provided toy/stuffed animal, coloring book to patient or family member [] Provided Communion [] Anointing/[place] [] Salvation [x] Completed spiritual assessment [] Other: Impact on Illness or Injury [] Angry [] Fearful [] Anxious [] Often cries [] Exhaustion [] Unable to work [] Unable to attend restorationism [] Unable to walk/stand [] Unable to read [] Unable to drive [] Unable to eat/drink [] Unable to sleep [] Unable to be with family [] Patient intubated [] Other: Summary Time spent with patient 15 min
[2024-11-25 11:52] LABS: Hematocrit 23.3 % (36-47); Hemoglobin 7.70 g/dL (11.27-16.99); Mean Corpuscular HGB Conc 33.0 g/dL (30-55); Mean Corpuscular Hemoglobin 29.1 pg (27-33); Mean Corpuscular Volume 87.9 fl (85-98); Nucleated Red Blood Cells % 0 %; Platelet Count 89 10^3/cmm (157-399); Red Blood Count 2.65 10^6/uL (3.85-5.65); White Blood Count 14.75 10^3/uL (3.29-11.43)
[2024-11-25 16:56] LABS: Lactate (Lactic Acid level) 1.9 mmol/L (0.5-2.2)
--- NOTE | 2024-11-25 21:31 | ECG_ITS ---
[facility] Pat Name: Kay Calles Department: Room: 268 Gender: Female Hand Slitter: : 1965 Requested By: Andrea Mcmillan Order Number: [id number] Canales MD: Joel Garza M.D. Measurements Intervals [facility] Rate: 96 P: 37 MN: 117 QRS: 17 QRSD: 92 T: 41 QT: 375 QTc: 475 Interpretive Statements SINUS RHYTHM WITH SHORT MN INTERVAL Compared to ECG 06/22/2024 02:08:11 Short MN interval now present Electronically Signed On 11-29-2024 08:54:20 CDT by Joel Garza M.D. [id number]
[2024-11-25 22:36] LABS: Troponin(5th) Baseline < 6 ng/L (0-10)
[2024-11-25] MEDS: HYDROmorphone tab 2 MG TABLET 1 MG PO (23:08)
[2024-11-25] MEDS: lidocaine 2% viscous 15 ML, aluminum-mag hydrox-simethicon 30 ML, sucralfate oral liq 1 GM PO (23:08)
--- NOTE | 2024-11-25 23:37 | ECG_ITS ---
[facility]25 Pat Name: Kay Calles Department: Room: 268 Gender: Female Assistant Merchandise Manager: : 1965 Requested By: Andrea Mcmillan Order Number: [id number] Parker MD: Joel Garza M.D. Measurements Intervals [place] Rate: 85 P: 46 DC: 149 QRS: 12 QRSD: 90 T: 31 QT: 382 QTc: 455 Interpretive Statements SINUS RHYTHM Compared to ECG 11/25/2024 21:31:44 Short DC interval no longer present Electronically Signed On 11-29-2024 09:46:26 CDT by Joel Garza M.D. [email or web address]
[2024-11-26] VITALS: BP 146/72; PULSE 80; RESP 16; TEMP 37.2; O2SAT 98
--- NOTE | 2024-11-26 00:45 | PC.NURSE ---
chest pain 11/25/2024 at approx 2130 pt complained of severe chest pain midsternal that did not radiate. vitals all wnl, ekg nsr with shortened pr interval. Dr. Mcmillan ordered trop to be drawn, and to administer nitro. 3 doses of nitro given to pt with no relief. Dr. Mcmillan assessed pt at bedside and gave order to give gi cocktail and one time dose of 1mg dilaudid po. pt stated her pain is decreased now and is able to rest.
[2024-11-26 01:07] LABS: Troponin 5 2HR < 6.0 ng/L (0-10); Troponin 5 2HR Delta 0 ABS# (0-10)
--- NOTE | 2024-11-26 03:43 | ECG_ITS ---
[facility] Test Date: 2024-11-26 Pat Name: Kay Calles Department: Room: 268 Gender: Female Chief Cook: : 1965 Requested By: Andrea Mcmillan Order Number: [id number] Parker MD: Joel Garza M.D. Measurements Intervals [place] Rate: 66 P: 49 WV: 158 QRS: 35 QRSD: 90 T: 29 QT: 443 QTc: 466 Interpretive Statements SINUS RHYTHM Compared to ECG 11/25/2024 23:06:48 No significant changes Electronically Signed On 11-29-2024 09:46:16 CDT by Joel Garza M.D. [email or web address] [id number]
[2024-11-26 04:00] VITALS: BP 118/60; PULSE 70; RESP 17; TEMP 37.2; O2SAT 95
[2024-11-26] MEDS: HYDROmorphone tab 2 MG TABLET PO ×2 (04:14→10:24)
[2024-11-26 04:48] LABS: Hematocrit 21.4 % (36-47); Hemoglobin 7.20 g/dL (11.27-16.99); Mean Corpuscular HGB Conc 33.6 g/dL (30-55); Mean Corpuscular Hemoglobin 28.7 pg (27-33); Mean Corpuscular Volume 85.3 fl (85-98); Nucleated Red Blood Cells % 0 %; Platelet Count 93 10^3/cmm (157-399); Red Blood Count 2.51 10^6/uL (3.85-5.65); White Blood Count 11.41 10^3/uL (3.29-11.43)
[2024-11-26 04:49] LABS: Troponin 5 6HR 6.42 ng/L (0-10); Troponin 5 6HR Delta 0.42001 ng/L (0-12)
[2024-11-26 04:55] LABS: Alanine Aminotransferase 15 U/L (0-33); Albumin Level 2.4 g/dL (3.5-5.2); Alkaline Phosphatase 104 U/L (35-105); Anion Gap 12.4 (5-19); Aspartate Amino Transferase 28 U/L (0-32); Blood Urea Nitrogen 9 mg/dL (6-20); Calcium 7.1 mg/dL (8.5-10.5); Carbon Dioxide 21 mmol/L (22-29); Chloride 98 mmol/L (98-107); Creatinine Clr Calc Pharmacy 101.5906; Globulin 1.6 g/dL (1.3-4.6); Glucose 114 mg/dL (65-115); Magnesium 1.7 mg/dL (1.7-2.3); Osmolality Calculated 266 mOsm/kg (285-295); Potassium 3.4 mmol/L (3.5-5.1); Sodium 128 mmol/L (136-145); Total Protein 4.0 g/dL (6.6-8.7)
[2024-11-26] MEDS: metroNIDAZOLE IV 500 MG/100 ML PREMIX 100 MG IV (05:35)
[2024-11-26 07:29] VITALS: BP 113/63; PULSE 63; RESP 17; TEMP 36.8; O2SAT 95
[2024-11-26] MEDS: multivitamin therapeutic Tablet 1 TAB PO (08:53)
[2024-11-26] MEDS: pantoprazole 40 mg SDV IVP (08:53)
[2024-11-26 09:29] VITALS: PULSE 70; RESP 18; O2SAT 98
--- NOTE | 2024-11-26 10:03 | PC.CHAP ---
Pastoral Care Encounter/Spiritual Assessment Type of Contact [] Declined small piece cutter visit [] Patient/Family/Request visit [] Outpatient visit [] Follow-up visit [] Physician referral [] Code/Alert [x] Routine visit [] Staff referral [] Actively dying [] Patient sleeping [] Family support [] [] Out of room [] Palliative care [] [] Receiving care in room [] Pre-surgical visit [] Trauma [] Long length of stay [] ICU visit [] Other: Relational/Emotional Strength [x] Patient feels connected with others/family/visitors/staff [x] Distress [] Loneliness/isolation [] Abandonment Spirituality of Patient [x] Person of Aparna [] Attends Uatsdin of their Aparna [x] Believes in Prayer [] Reads Bible or Cheondoism materials [] There are Spiritual issues to be addressed Centrifuge Separator Operator Interventions [x] Prayer [x] Active listening [x] Non-anxious presence [x] Spiritual/emotional support [] Crisis/trauma care [x] Spiritual counseling [] Bereavement support [] Provided bereavement packet [] Provided Bible/devotional materials [] Provided toy/stuffed animal, coloring book to patient or family member [] Provided Communion [] Anointing/[place] [] Salvation [x] Completed spiritual assessment [] Other: Impact on Illness or Injury [] Angry [] Fearful [] Anxious [] Often cries [] Exhaustion [] Unable to work [] Unable to attend sikhism [] Unable to walk/stand [] Unable to read [] Unable to drive [] Unable to eat/drink [] Unable to sleep [] Unable to be with family [] Patient intubated [] Other: Summary Time spent with patient 5 min
[2024-11-26 10:05] LABS: Ferritin 64 ng/mL (15-150); Iron 14 ug/dL (37-145); Total Iron Binding Capacity 222 mcg/dl; Unsaturated Iron Binding 208 ug/dL (112-347)
[2024-11-26 10:21] LABS: Vitamin B12 1829 pg/mL (232-1245)
[2024-11-26 11:43] VITALS: BP 146/88; PULSE 74; RESP 16; TEMP 36.9; O2SAT 97
--- NOTE | 2024-11-26 13:34 | PM.DCS ---
Discharge Providers Date of Admission: 11/24/24 18:42 Date of Discharge: November 26, 2024 Attending Provider at Admission: Florecita Bai MD Attending Provider at Discharge: Florecita Bai MD Primary Care Provider: Aida Vincent Diagnoses at Discharge Discharge Diagnosis 1. Sepsis: 2. Colitis: 3. Abnormal liver enzymes: 4. Thrombocytopenia: 5. Protein deficiency: 6. COPD (chronic obstructive pulmonary disease): 7. Fracture lumbar vertebra-closed: 8. Cervical myelopathy: 9. 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 Chronic back pain: 12. MONTANO (nonalcoholic steatohepatitis): Reason for Visit Reason for Visit: n/v/d Brief History: Kay Calles is a 59 year old female with past medical history of alcohol dependence, borderline personality disorder, COPD, cervical myelopathy, lumbar disc disease, history of Belkys-Valenzuela tear, chronic back pain, nonalcoholic steatohepatitis, chronic iron deficiency anemia came with around 4 to 5 days of history of nausea vomiting and diarrhea. The patient also reported some fatty stools and on and off mixed with blood. Also reported some low-grade fever but not associated with high-grade or with chills. The patient did not report any night sweats or weight loss. No history of outside food or skin rash. Rest of the review of system is unremarkable No history of chest pain lower leg swellings shortness of breath. Patient currently drinks on and off but not to the point of binge drinking and history of smoking but has been cutting down. No other drug abuse Hospital Course Hospital Course Patient admitted as a case of colitis. Blood cultures were sent and the patient was started on ciprofloxacin and metronidazole with stool workup to be sent. However the patient was unable to give adequate stool sample.. Blood cultures were negative up to date. The patient leukocytosis improved immensely and the patient abdominal pain and diarrhea also improved. She was given her home medications for her chronic conditions and remained stable. the patient was found to have anemia and further workup showed that the patient is chronically anemic likely anemia of chronic disease. In the further patient explained that she has been taking treatment for her anemia as outpatient from hematology oncology. She did not report any overt source of bleeding. Electrolytes were monitored and corrected accordingly and was also discharged on phosphorus tablets for few days for low phosphate levels. Her hospital stay was uncomplicated the patient was informed about her plan of care during her hospital stay and further discharge. She agreed without any language barrier all the concerns and questions were addressed Physical Exam Narrative: General: Alert oriented x3, patient seen lying comfortably on room air HEENT: Normocephalic, atraumatic, EOMI, breathing any distress Cardio: Regular rate rhythm, normal S1-S2, no murmurs rubs gallops, JVD_normal Respiratory: Good bilateral air entry, no wheezes no rhonchi appreciated GI: Abdomen soft, moderately tender at the epigastric region and right and left subcostal areas at deep palpation however no organomegaly appreciated and normal bowel sounds Neuro: Cranial nerves II to XII intact, strength 5/5, sensation 5/5, no gross neurological deficit Behavior: Appropriate and cooperative Extremities: Pulses 2+, no edema, no cyanosis Skin: Visible skin intact, no rashes Discharge Data Studies Completed and Pending Completed Studies During Hospitalization Category Date Time Status CT abdomen pelvis w con* [id number] Stat Cat Scan 11/24/24 16:01 Completed CV. echo complete* [id number] Routine Ultrasound 11/26/24 21:38 Completed Pending at discharge Category Date Time Status Blood Culture Stat Lab 11/24/24 22:11 Results C.Diff PCR (Lab) Routine Lab 11/24/24 15:06 Ordered C.Diff PCR (Lab) Routine Lab 11/24/24 19:56 Uncollected Complete Blood Count w/Auto AM LABS Lab 11/27/24 04:00 Ordered Comprehensive Metabolic Panel AM LABS Lab 11/27/24 04:00 Ordered Immunochemical Fecal OCB Routine Lab 11/24/24 15:06 Ordered Lactoferrin Routine Lab 11/24/24 15:06 Ordered Magnesium AM LABS Lab 11/27/24 04:00 Ordered OVA and Parasites, Conc and PE Routine Lab 11/24/24 15:06 Ordered OVA and Parasites, Conc and PE Routine Lab 11/24/24 19:56 Uncollected Phosphorus AM LABS Lab 11/27/24 04:00 Ordered Rota Virus AG Stool Routine Lab 11/24/24 19:56 Uncollected Salmonella / Shigella / Campy Routine Lab 11/24/24 15:06 Ordered Stool Culture - Enteric [Salmonella / Shigella / Campy] Lab 11/24/24 19:56 Uncollected Routine Stool WBC [Lactoferrin] Routine Lab 11/24/24 19:56 Uncollected Radiology Impressions Abdomen/Pelvis CT 11/24/24 16:01 IMPRESSION: 1. Cirrhotic morphology of the liver with findings of portal hypertension. 2. Diffuse edematous wall thickening of the colon and to a lesser extent small bowel stomach. Mild splenomegaly, ascites, mesenteric edema, mesenteric and soft tissue anasarca. 3. Previous cholecystectomy. Some dilatation of the common bile duct greater than expected for post cholecystectomy patient and correlation with bilirubin recommended. 4. Postoperative and degenerative changes lumbar spine Laboratory Results WBC 11.41 10^3/uL (3.29-11.43) 11/26/24 04:27 RBC 2.51 10^6/uL (3.85-5.65) L 11/26/24 04:27 Hgb 7.20 g/dL (11.27-16.99) L 11/26/24 04:27 Hct 21.4 % (36-47) L 11/26/24 04:27 MCV 85.3 fl (85-98) 11/26/24 04:27 MCH 28.7 pg (27-33) 11/26/24 04:27 MCHC 33.6 g/dL (30-55) 11/26/24 04:27 RDW 16.1 % (12.1-15.1) H 11/26/24 04:27 Plt Count 93 10^3/cmm (157-399) L 11/26/24 04:27 MPV 9.5 fL (7.4-10.4) 11/26/24 04:27 Neut % (Auto) 81.0 % 11/26/24 04:27 Lymph % (Auto) 5.4 % 11/26/24 04:27 Metcalfe % (Auto) 10.5 % 11/26/24 04:27 Eos % (Auto) 1.3 % 11/26/24 04:27 Baso % (Auto) 0.3 % 11/26/24 04:27 Neut # (Auto) 9.24 10^3/uL (1.8-7.7) H 11/26/24 04:27 Lymph # (Auto) 0.6 10^3/uL (0.8-4.8) L 11/26/24 04:27 Metcalfe # (Auto) 1.2 10^3/uL (0.2-0.9) H 11/26/24 04:27 Eos # (Auto) 0.2 10^3/uL (0.0-0.8) 11/26/24 04:27 Baso # (Auto) 0.0 10^3/uL (0.0-0.1) 11/26/24 04:27 Nucleated RBC % (auto) 0 % 11/26/24 04:27 Nucleated RBCs # 0.0 /100WBC 11/26/24 04:27 Sodium 128 mmol/L (136-145) L 11/26/24 04:27 Potassium 3.4 mmol/L (3.5-5.1) L 11/26/24 04:27 Chloride 98 mmol/L (98-107) 11/26/24 04:27 Carbon Dioxide 21 mmol/L (22-29) L 11/26/24 04:27 Anion Gap 12.4 (5-19) 11/26/24 04:27 BUN 9 mg/dL (6-20) 11/26/24 04:27 Creatinine 0.7 mg/dL (0.5-0.9) 11/26/24 04:27 GFR Calculation 86.2 mL/min (90-130) L 11/26/24 04:27 Glucose 114 mg/dL (65-115) 11/26/24 04:27 Calculated Osmolality 266 mOsm/kg (285-295) L 11/26/24 04:27 Lactic Acid 2.5 mmol/L (0.5-2.2) H 11/24/24 15:25 Lactic Acid (Sepsis) 2.6 mmol/L (0.5-2.2) H 11/24/24 19:20 Lactate 1.9 mmol/L (0.5-2.2) 11/25/24 16:24 Calcium 7.1 mg/dL (8.5-10.5) L 11/26/24 04:27 Phosphorus 1.9 mg/dL (2.5-4.5) L 11/26/24 04:27 Magnesium 1.7 mg/dL (1.7-2.3) 11/26/24 04:27 Iron 14 ug/dL (37-145) L 11/26/24 04:27 TIBC 222 mcg/dl 11/26/24 04:27 % Saturation 6.3 % (20-50) L 11/26/24 04:27 Unsat Iron Binding 208 ug/dL (112-347) 11/26/24 04:27 Ferritin 64 ng/mL (15-150) 11/26/24 04:27 Total Bilirubin 1.6 mg/dL (0.15-1.2) H 11/26/24 04:27 AST 28 U/L (0-32) 11/26/24 04:27 ALT 15 U/L (0-33) 11/26/24 04:27 Alkaline Phosphatase 104 U/L (35-105) 11/26/24 04:27 Troponin T Baseline < 6 ng/L (0-10) 11/25/24 22:11 Troponin T 120 Minute < 6.0 ng/L (0-10) 11/26/24 00:11 Delta Troponin T 0 ABS# (0-10) 11/26/24 00:11 Troponin T Hi Sens 6Hr 6.42 ng/L (0-10) 11/26/24 04:27 Troponin T Hi Sens 6Hr Delta 0.23017 ng/L (0-12) 11/26/24 04:27 Total Protein 4.0 g/dL (6.6-8.7) L 11/26/24 04:27 Albumin 2.4 g/dL (3.5-5.2) L 11/26/24 04:27 Globulin 1.6 g/dL (1.3-4.6) 11/26/24 04:27 Lipase 42 U/L (13-60) 11/24/24 15:25 Vitamin B12 1829 pg/mL (232-1245) H 11/26/24 04:27 Folate 7.5 ng/mL (4.8-37.3) 11/26/24 04:27 TSH 1.93 uIU/mL (0.27-4.20) 11/25/24 04:28 Urine Color Dark yellow (Yellow) A 11/25/24 00:35 Urine Appearance Clear (CLEAR) 11/25/24 00:35 Urine pH 5.5 (5-7) 11/25/24 00:35 Ur Specific [place] 1.062 (1.005-1.030) H 11/25/24 00:35 Urine Protein Trace (Negative) A 11/25/24 00:35 Urine Glucose (UA) Negative (Normal) 11/25/24 00:35 Urine Ketones 1+ (Negative) H 11/25/24 00:35 Urine Blood Trace (Negative) A 11/25/24 00:35 Urine Nitrate Negative (Negative) 11/25/24 00:35 Urine Bilirubin Negative (Negative) 11/25/24 00:35 Urine Urobilinogen 1.0 mg/dL (Negative) 11/25/24 00:35 Ur Leukocyte Esterase Trace (Negative) A 11/25/24 00:35 Urine RBC Rare /hpf (0-2) 11/25/24 00:35 Urine WBC Rare /hpf (0-5) 11/25/24 00:35 Ur Squamous Epith Cells None /hpf (0-5) 11/25/24 00:35 Amorphous Sediment Not Reportable 11/25/24 00:35 Urine Bacteria None /hpf (NONE) 11/25/24 00:35 Hyaline Casts None /lpf 11/25/24 00:35 Vitals Last Vital Signs Temp 98.4 F 11/26/24 11:43 Pulse 74 11/26/24 11:43 Resp 16 11/26/24 11:43 BP 146/88 11/26/24 11:43 Pulse Ox 97 11/26/24 11:43 O2 Del Method Room Air 11/26/24 11:43 Discharge Plan Discharge Patient Disposition: Home Condition: Stable Prescriptions: New ciprofloxacin HCl [Cipro] 500 mg tablet 500 mg PO Q12H Qty: 14 0RF metronidazole 500 mg tablet 500 mg PO TID 7 Days Qty: 21 0RF Phospha 250 Neutral 250 mg tablet 1 tab PO BID 5 Days Qty: 10 0RF Continued buspirone 5 mg tablet 5 mg PO BID PRN (Reason: Anxiety) Patient Comments: at bedtime tizanidine 4 mg capsule 4 mg PO Q8H PRN (Reason: Spasms) multivitamin Tablet 1 tab PO DAILY Qty: 30 2RF potassium chloride [Klor-Con 10] 10 mEq tablet extended release 10 meq PO DAILY Qty: 30 0RF Rx Instructions: with furosemide. albuterol sulfate 90 mcg/actuation HFA aerosol inhaler 2 puff INHALATION Q4H PRN (Reason: Shortness Of Breath Or Wheezing) ziprasidone HCl 20 mg capsule 20 mg PO BID PRN (Reason: Anxiety) hydroxyzine HCl 25 mg tablet 25 mg PO Q8H PRN (Reason: anxiety) Qty: 10 0RF nitroglycerin 0.4 mg tablet, sublingual See Rx Instructions .ROUTE .COMPLEX Rx Instructions: PLACE ONE TABLET UNDER TONGUE NEEDED FOR CHEST PAIN. epinephrine 0.3 mg/0.3 mL auto-injector See Rx Instructions .ROUTE .COMPLEX Rx Instructions: INJECT 1 PEN IN THE MUSCLE ONE TIME DIRECTED. furosemide 20 mg tablet 20 mg PO QAM PRN (Reason: Edema) Rx Instructions: Take one tablet in AM along with potassium 10mEq tablet. Discharge Order = DC NOW: Discharge Order (Routine); Ordered 11/26/24 Ordered By: Florecita Bai Referrals: Aida Vincent PA [Primary Care Provider, [facility] [employer] [facility]] - 12/04/24 11:00 am Discharge Diet: Advance as tolerated Discharge Activity: Resume usual activity Patient Instructions: Ciprofloxacin (By mouth) (Cipro), Metronidazole (By mouth) (Flagyl, Flagyl 375, Flagyl ER, Likmez), Phosphate Supplement (By mouth) (Av-Phos 250 Neutral, K-Phos..., Sepsis (DC), Colitis (ED), COPD Stoplight, Opioid Safety, Patient Portal & Deana Instructions Discharge Attestations Time Spent in Discharge Care*: less than 30 min Specific Discharge Activities: educating patient, educating and/or supporting family/caregiver, discussing with pcp/other providers, discussing with case management manager/social workers/dc planners, documenting/other paperwork and evaluating patient/reviewing data Time Spent in Smoking Cessation: 3 to 10 minutes Status at Discharge: Cognitive status at discharge: cognitively intact, Behavioral status at discharge: cooperative, Functional status at discharge: independent ambulation, Overall status at discharge: patient is back to baseline Quality Metrics Clinical Quality Measures [ No reported AMI, CVA or VTE this stay] Coding Level of Care Code 34844 Diagnoses Sepsis A41.9 Colitis K52.9 Abnormal liver enzymes R74.8 Thrombocytopenia D69.6 Protein deficiency E46 COPD (chronic obstructive pulmonary disease) J44.9 Fracture lumbar vertebra-closed S32.009A Cervical myelopathy G95.9 Lumbar disc disease M51.9 Hx of Belkys-Valenzuela syndrome Z87.19 Chronic back pain M54.9; G89.29 MONTANO (nonalcoholic steatohepatitis) K75.81
--- NOTE | 2024-11-26 14:17 | PC.SOCIAL ---
IMM UPDATED IMM dated and initialed, copy placed in chart and copy given to patient at this time.
[2024-11-26 15:00] VITALS: BP 146/88; PULSE 74; RESP 16; TEMP 36.9; O2SAT 97
--- NOTE | 2024-11-26 21:38 | USCV_ITS ---
Kay Calles Age: 59 Gender: F : 1965 Exam Date: 11/26/2024 01:12 Ordering Phys: Andrea Mcmillan MD Technologist: LORETTA Exam Location: [facility] [place] Indication: chest pain, alcoholism, COPD, chronic back pain, anemia BP: 151 / 61 HR: 73 Rhythm: Sinus Technical Quality: Adequate MEASUREMENTS (Male / Female) Normal Values 2D ECHO LV Diastolic Diameter PLAX 4.8 cm 4.2 - 5.9 / 3.9 - 5.3 cm IVS Diastolic Thickness 1.4 cm 0.6 - 1.0 / 0.6 - 0.9 cm IVS Systolic Thickness 2.1 cm LVPW Diastolic Thickness 1.3 cm 0.6 - 1.0 / 0.6 - 0.9 cm LVPW Systolic Thickness 2.0 cm LVOT Diameter 1.8 cm LV Ejection Fraction 2D Teich 66.1 % LV Ejection Fraction MOD 4C 50.0 % LV Ejection Fraction MOD 2C 72.0 % LV Ejection Fraction 2C AL 72.2 % LA Diameter 3.7 cm Aorta at Sinotubular Diameter 2.6 cm IVC Diameter 2.5 cm M-MODE LA Ao Ratio MM 1.6 AV Cusp Separation MM 1.7 cm DOPPLER AV Peak Velocity 169.0 cm/s LVOT Peak Velocity 117.0 cm/s AV Area Cont Eq vti 2.1 cm squared AV Area Cont Eq pk 1.8 cm squared MV Peak Velocity 122.0 cm/s MV Area PHT 4.3 cm squared Mitral E to A Ratio 1.4 TV Peak Velocity 226.5 cm/s TR Peak Velocity 236.0 cm/s TR Peak Gradient 22.3 mmHg TV Peak E Velocity 44.0 cm/s PV Peak Velocity 111.0 cm/s FINDINGS Left Ventricle Normal left ventricular size, systolic function and wall thickness, with no regional wall motion abnormalities. Left ventricular ejection fraction is estimated at 60 %. Normal diastolic function. Right Ventricle The right ventricle is normal in size and function. Right Atrium The right atrium is normal in size. Left Atrium The left atrium is normal in size. Mitral Valve Structurally normal mitral valve without significant stenosis or prolapse. There is no mitral regurgitation. Aortic Valve Structurally normal trileaflet aortic valve. No aortic valve stenosis. Trace aortic valve regurgitation. Tricuspid Valve Trace to mild tricuspid valve regurgitation. Pulmonic Valve Structurally normal pulmonic valve without significant stenosis. There is no pulmonic regurgitation. Pericardium Normal pericardium without effusion. Aorta Normal ascending aorta dimension. IVC The inferior vena cava appears normal. CONCLUSIONS Normal left ventricular size, systolic function and wall thickness, with no regional wall motion abnormalities. Left ventricular ejection fraction is estimated at 60 %. Normal diastolic function. Trace to mild tricuspid valve regurgitation There is no pericardial effusion. Right atrial pressure is around 5 mm of mercury. Cassie Castillo MD (Electronically Signed) Final Date: 26 November 2024 11:21 S
== END 2024-11-26 14:00 | disposition home or self-care (01) | DRG 392 ==
LOC: ER 18:16 → MEDSURG 18:43
PROVIDERS: Family Medicine; Admitting Provider Student in an Organized Health Care Education/Training Program; Emergency Provider Emergency Medicine; PCP Physician Assistant; Visit Provider Student in an Organized Health Care Education/Training Program
DX: K52.9 Noninfective gastroenteritis and colitis, unspecified (principal); F33.2 Major depressive disorder, recurrent severe without psychotic features; R74.8 Abnormal levels of other serum enzymes; D69.6 Thrombocytopenia, unspecified; J44.9 Chronic obstructive pulmonary disease, unspecified; G89.29 Other chronic pain; M54.9 Dorsalgia, unspecified; K75.81 Nonalcoholic steatohepatitis (NASH); F10.20 Alcohol dependence, uncomplicated; F60.3 Borderline personality disorder; D50.9 Iron deficiency anemia, unspecified; D63.8 Anemia in other chronic diseases classified elsewhere; F17.210 Nicotine dependence, cigarettes, uncomplicated; F17.290 Nicotine dependence, other tobacco product, uncomplicated; M16.0 Bilateral primary osteoarthritis of hip; E11.40 Type 2 diabetes mellitus with diabetic neuropathy, unspecified; F12.20 Cannabis dependence, uncomplicated; F43.12 Post-traumatic stress disorder, chronic; Z98.1 Arthrodesis status
CPT/HCPCS: 36415; 74177; 80053; 81001; 82607; 82728; 82746; 83540; 83550; 83605; 83690; 83735; 84100; 84443; 84484; 85025; 87040; 93005; 93306; 96365; 96367; 96372; 96375; 99285; J0744; J1171; J1644; J2270; J2405; J2470; J3373; J3490; J7030; J7040; J7050; J7120; J9999

== ENCOUNTER 2024-12-15 12:41 | Outpatient (CLI) | payer MEDICARE, MEDICAID, SELFPAY ==
[2024-09-18 15:42] VITALS: BP 147/78; BMI 37.0
--- NOTE | 2024-12-15 12:47 | MR_ITS ---
WS: [id number] MRI LUMBAR SPINE NONCONTRAST HISTORY: COMPRESSION FX OF L1 VERTEBRA,SEQUELA COMPARISON: 10/20/2021 MRI, CT 11/24/2024, radiograph 11/04/2024 TECHNIQUE: Sagittal and axial multisequence imaging is submitted. Cervical fusion hardware in the cervical spine. Posterior lumbar fusion extending from L3-S1. Disc spaces are mildly desiccated. New fracture involving the L1 vertebral body. There is loss of height involving the inferior endplate and there is a very small amount of residual marrow edema in the L1 vertebral body. This fracture is new since 10/20/2021 but does appear to be present on 11/24/2024 radiograph. No additional marrow edema. Conus terminates normally at L1-2 disc level. L1-L2: Mild disc bulging with very minimal foraminal narrowing. L2-L3: No central stenosis. Mild ligamentum flavum and facet arthritis. Mild bilateral foraminal stenosis. L3-L4: Mild disc bulging with a LEFT foraminal disc protrusion. Mild ligamentum flavum and facet arthritis. Mild central, bilateral subarticular recess and foraminal stenosis. Slightly greater foraminal stenosis on the LEFT. L4-L5: Posterior laminectomy defect. Mild disc bulging with a RIGHT foraminal broad-based disc protrusion. Mild bilateral foraminal stenosis. L5-S1: Mild disc bulging. Mild foraminal stenosis. Tubular structures in the mesentery and retroperitoneum are noted to be large varicosities seen is as seen on a prior CT. Spleen is enlarged at 13.3 cm. MR/MR lumbar spine wo con* [id number] IMPRESSION: 1. Status post posterior lumbar fusion from L3-S1. 2. Very subtle marrow edema in the L1 vertebral body with loss of height invol ving the inferior endplate. Age-indeterminate fracture. Fracture did appear to be present on radiographs of 11/24/2024. 3. Foraminal and central stenosis as suspected above. 4. LEFT foraminal disc protrusion at L3-4 and on the RIGHT at L4-5.
== END 2024-12-15 12:42 | disposition home or self-care (01) ==
LOC: RAD 12:42
PROVIDERS: PCP Physician Assistant; Visit Provider Physician Assistant
DX: M47.816 Spondylosis without myelopathy or radiculopathy, lumbar region (principal); M48.061 Spinal stenosis, lumbar region without neurogenic claudication; M96.1 Postlaminectomy syndrome, not elsewhere classified; Z98.890 Other specified postprocedural states; Z98.1 Arthrodesis status
CPT/HCPCS: 72148

== ENCOUNTER 2025-01-01 17:36 | Emergency (ER) | payer MEDICARE, MEDICAID, SELFPAY ==
--- OUTSIDE RECORDS SUMMARY | 2024-02-02 04:00 | XMS_ITS ---
Author Organization [facility] Address [address] [place] [address] Care Team Providers Care Quality Rn Name Role Phone Joseph Lewis MD Primary Care Provider Zane Joiner Unavailable [phone] ELROY BOOTHE Unavailable Unavailable Migration, Provider Unavailable Unavailable REASON FOR VISIT EMR-Luke Encounters Encounter Location Date Provider Diagnosis Migrated_Facility 0 0 02/02/2024 Provider Migration Plan Of Treatment Medication Medication Name Sig Start Date Stop Date Notes Zubsolv 5.7-1.4 mg sublingual tablet, sublingual 1 Tablet Twice a Day 02/20/2019 03/22/2019 *Reorder from [facility] for eRx and Interaction Alerts* Progress Notes * Kay GAMBOA MDOB:1965 (59 yo F)Acc No.[id number]:02/02/2024 Patient: Elva Kay RODRIGUEZ :1965 A ge:58 Y S ex:Female Address:[address], [address] [place] [address] * Refills Stop Zubsolv 5.7-1.4 mg sublingual tablet, sublingual, 1 Tablet Twice a Day Subjective: * Chief Complaints: * E MR-Luke * * Date:
--- OUTSIDE RECORDS SUMMARY | 2024-02-03 04:00 | XMS_ITS ---
Author Organization [facility] Address [address] [place] [address] Care Team Providers Care Track Announcer Name Role Phone Joseph Lewis MD Primary Care Provider Zane Joiner Unavailable [phone] ELROY BOOTHE Unavailable Unavailable Migration, Provider Unavailable [...] * Kay GAMBOA MDOB:1965 (59 yo F)Acc No.[id number]:02/03/2024 Patient: Elva CADEKay BIGGS :1965 A ge:58 Y S ex:Female Address:[address] [place] [address] Subjective: * Chief Complaints: * E MR-Luke [...]
[2024-09-18 15:42] VITALS: BP 147/78; BMI 37.0
--- OUTSIDE RECORDS SUMMARY | 2025-01-01 17:43 | XMS_ITS | Encounter Summary ---
Author Organization [facility] Address [address] Attn: [place] [address] Care Team Providers Care Debubblizer Name Role Phone Areli Gurrola MD Primary [...] file Legal Sex Female 3:40 AM MANAGER RISK Gender Identity Not on file Sexual Orientation Not on file documented as of this encounter Plan of Treatment Not on file documented as of this encounter Visit Diagnoses Not on filedocumented in this encounter Additional Health Concerns Infection Onset Date Last Indicated Resolved Time R/O COVID-19 01/31/2020 01/31/2020 02/02/2020 10:3 2 AM CDT documented as of this encounter Care Teams Debubblizer Relationship Specialty Start Date End Date Areli Gurrola MD [address] [place] [address] PCP - General Specialist 08/12/19 documented as of this encounter
--- OUTSIDE RECORDS SUMMARY | 2025-01-01 17:43 | XMS_ITS | Encounter Summary ---
Author Organization [facility] Address [address] Attn: [place] [address] Care Team Providers Care Freight Caller Name Role Phone Areli Gurrola MD Primary [...] on file Legal Sex Female 3:40 AM PECAN MALLOW DIPPER Gender Identity Not on file Sexual Orientation Not on file documented as of this encounter Plan of Treatment Not on file documented as of this encounter Visit Diagnoses Not on filedocumented in this encounter Additional Health Concerns Infection Onset Date Last Indicated Resolved Time R/O COVID-19 01/31/2020 01/31/2020 02/02/2020 10:3 2 AM CDT documented as of this encounter Care Teams Freight Caller Relationship Specialty Start Date End Date Areli Gurrola MD [address] [place] [address] PCP - General Specialist 08/12/19 documented as of this encounter
--- OUTSIDE RECORDS SUMMARY | 2025-01-01 17:43 | XMS_ITS | Encounter Summary ---
Author Organization [facility] Address [address] [place] [address] Care Team Providers Care Aircraft Powertrain Repairer Name Role Phone Areli Gurrola MD Primary Care Provider Encounter Details Date Type Department Care Team (Latest Contact Info) Description 04/23/2000 Outpatient [facility] [address] [place] [address] Trell York MD [address] [place] [phone] Cervicalgia (Primary Dx); Other convulsions Social History Tobacco Use Types Packs/Day Years Used Date Smoking Tobacco: Never Assessed Comments Unknown Sex and Gender Information Value Date Recorded Sex Assigned at Not on file Legal Sex Female 3:40 AM GIS INSTRUCTOR Gender Identity Not on file Sexual [...] documented as of this encounter Care Teams Aircraft Powertrain Repairer Relationship Specialty Start Date End Date Areli Gurrola MD [address] [place] [phone] PCP - General Specialist 08/12/19 documented as of this encounter
--- OUTSIDE RECORDS SUMMARY | 2025-01-01 17:43 | XMS_ITS | Encounter Summary ---
Author Organization [facility] Address [address] [place] [address] Care Team Providers Care Heavy Equipment Sales Manager Name Role Phone Areli Gurrola MD Primary Care Provider Encounter Details Date Type Department Care Team (Latest Contact Info) Description 01/30/2000 Outpatient Historical [facility] [address] [place] [address] Trell York MD [address] [place] [phone] Lumbago (Primary Dx) Social History Tobacco Use Types Packs/Day Years Used Date Smoking Tobacco: Never Assessed Comments Unknown Sex and Gender Information Value Date Recorded Sex Assigned at Not on file Legal Sex Female 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 INDUSTRY INTERN Gender Identity Not on file Sexual [...] of this encounter Care Teams Heavy Equipment Sales Manager Relationship Specialty Start Date End Date Areli Gurrola MD [address] [place] [address] PCP - General Specialist 08/12/19 documented as of this encounter
--- OUTSIDE RECORDS SUMMARY | 2025-01-01 17:43 | XMS_ITS | Encounter Summary ---
Author Organization [facility] Address [address] [place] [address] Care Team Providers Care Salmon Gillnet Vessel Operator Name Role Phone Areli Gurrola MD Primary Care Provider Encounter Details Date Type Department Care Team (Latest Contact Info) Description 02/21/2000 Outpatient Historical [facility] [address] [place] [address] Trell York MD [address] [place] [phone] Stricture of cervix (Primary Dx); Lumbago Social History Tobacco Use Types Packs/Day Years Used Date Smoking Tobacco: Never Assessed Comments Unknown Sex and Gender Information Value Date Recorded Sex Assigned at Not on file Legal Sex Female 3:40 AM NIGHT CUSTODIAN Gender Identity Not on file Sexual Orientation [...] documented as of this encounter Care Teams Salmon Gillnet Vessel Operator Relationship Specialty Start Date End Date Areli Gurrola MD [address] [place] [address] PCP - General Specialist 08/12/19 documented as of this encounter
--- OUTSIDE RECORDS SUMMARY | 2025-01-01 17:43 | XMS_ITS | Encounter Summary ---
Author Organization [facility] Address [address] Attn: [place] [address] Care Team Providers Care Shell Assembler Name Role Phone Areli Gurrola MD [...] on file Legal Sex Female 3:40 AM PSYCHOLOGY TECHNICIAN Gender Identity Not on file Sexual Orientation Not on file documented as of this encounter Plan of Treatment Not on file documented as of this encounter Visit Diagnoses Not on filedocumented in this encounter Additional Health Concerns Infection Onset Date Last Indicated Resolved Time R/O COVID-19 01/31/2020 01/31/2020 02/02/2020 10:3 2 AM CDT documented as of this encounter Care Teams Shell Assembler Relationship Specialty Start Date End Date Areli Gurrola MD [address] [place] [place] [address] PCP - General Specialist 08/12/19 documented as of this encounter
--- OUTSIDE RECORDS SUMMARY | 2025-01-01 17:43 | XMS_ITS | Encounter Summary ---
Author Organization [facility] Address [address] Attn: [place] [address] Care Team Providers Care Senior Java Developer Name Role Phone Areli Gurrola MD Primary [...] on file Legal Sex Female 3:40 AM MACHINE RIGGER Gender Identity Not on file Sexual Orientation Not on file documented as of this encounter Plan of Treatment Not on file documented as of this encounter Visit Diagnoses Not on filedocumented in this encounter Additional Health Concerns Infection Onset Date Last Indicated Resolved Time R/O COVID-19 01/31/2020 01/31/2020 02/02/2020 10:3 2 AM CDT documented as of this encounter Care Teams Senior Java Developer Relationship Specialty Start Date End Date Areli Gurrola MD [address] [place] [address] PCP - General Specialist 08/12/19 documented as of this encounter
--- OUTSIDE RECORDS SUMMARY | 2025-01-01 17:43 | XMS_ITS | Encounter Summary ---
Author Organization [facility] Address [address] [place] [address] Care Team Providers Care Hardening Machine Operator Helper Name Role Phone Areli Gurrola MD Primary Care Provider Encounter Details Date Type Department Care Team (Latest Contact Info) Description 12/27/[address] [facility] [address] [place] [address] Trell York MD [address] [place] [phone] Migraine without aura, without mention of intractable migraine without mention of status migrainosus (Primary Dx); Lumbago Social History Tobacco Use Types Packs/Day Years Used Date Smoking Tobacco: Never Assessed Comments Unknown Sex and Gender Information Value Date Recorded Sex Assigned at Not on file Legal Sex Female 3:40 AM INSURANCE INSTRUCTOR Gender Identity Not on file Sexual [...] documented as of this encounter Care Teams Hardening Machine Operator Helper Relationship Specialty Start Date End Date Areli Gurrola MD [address] [facility] [place] [address] PCP - General Specialist 08/12/19 documented as of this encounter
--- OUTSIDE RECORDS SUMMARY | 2025-01-01 17:43 | XMS_ITS | Encounter Summary ---
Author Organization [facility] Address [address] [place] [address] Care Team Providers Care Manager Practice Name Role Phone Areli Gurrola MD Primary Care Provider Encounter Details Date Type Department Care Team (Latest Contact Info) Description 06/07/2000 Outpatient Historical [facility] [address] [place] [address] Trell York MD [address] [place] [phone] Lumbago (Primary Dx); Open wound of foot except toe(s) alone, without mention of complication Social History Tobacco Use Types Packs/Day Years Used Date Smoking Tobacco: Never Assessed Comments Unknown Sex and Gender Information Value Date Recorded Sex Assigned at Not on file Legal Sex Female 3:40 AM DAMPPROOFER Gender Identity Not on file Sexual Orientation [...] as of this encounter Care Teams Manager Practice Relationship Specialty Start Date End Date Areli Gurrola MD [address] [facility] [place] [address] PCP - General Specialist 08/12/19 documented as of this encounter
--- OUTSIDE RECORDS SUMMARY | 2025-01-01 17:43 | XMS_ITS | Encounter Summary ---
Author Organization [facility] Address [address] [place] [address] Care Team Providers Care Airbrush Painter Name Role Phone Areli Grurola MD Primary Care Provider Encounter Details Date Type Department Care Team (Late st Contact Info) Description 06/11/2001 Outpatient Historical [facility] Gen Spec Surg [address] [place] [address] Social History Tobacco Use Types Packs/Day Years Used Date Smoking Tobacco: Never Assessed Comments Unknown Sex and Gender Information Value Date Recorded Sex Assigned at Not on file Legal Sex Female 3:40 AM MOLDING TECHNICIAN Gender Identity Not on file Sexual Orientation Not on file documented as of this encounter Plan of Treatment Not on file documented as of this encounter Visit Diagnoses Not on filedocumented in this encounter Additional Health Concerns Infection Onset Date Last Indicated Resolved Time R/O COVID-19 01/31/2020 01/31/2020 02/02/2020 10:3 2 AM CDT documented as of this encounter Care Teams Airbrush Painter Relationship Specialty Start Date End Date Aerli Gurrola MD [address] [place] [address] PCP - General Specialist 08/12/19 documented as of this encounter
--- OUTSIDE RECORDS SUMMARY | 2025-01-01 17:43 | XMS_ITS | Encounter Summary ---
Author Organization [facility] Address [address] [place] [address] Care Team Providers Care Weigher And Mixer Name Role Phone Areli Gurrola MD Primary Care Provider Encounter Details Date Type Department Care Team (Latest Contact Info) Description 03/14/2000 Outpatient Historical [facility] [address] [place] [address] Trell York MD [address] [place] [phone] Unspecified disorder of female genital organs (Primary Dx); Lumbago Social History Tobacco Use Types Packs/Day Years Used Date Smoking Tobacco: Never Assessed Comments Unknown Sex and Gender Information Value Date Recorded Sex Assigned at Not on file Legal Sex Female 3:40 AM VOLUNTEER SERVICES COORDINATOR Gender Identity Not on file Sexual [...] documented as of this encounter Care Teams Weigher And Mixer Relationship Specialty Start Date End Date Areli Gurrola MD [address] [facility] [place] [address] PCP - General Specialist 08/12/19 documented as of this encounter
--- OUTSIDE RECORDS SUMMARY | 2025-01-01 17:44 | XMS_ITS | Encounter Summary ---
Author Organization [facility] Address [address] [place] [address] Care Team Providers Care Roguer Name Role Phone Areli Gurrola MD Primary Care Provider Encounter Details Date Type Department Care Team (Latest Contact Info) Description 10/20/1999 Outpatient Historical [facility] Joseph Ramos MD [address] [place] [address] Carpal tunnel syndrome (Primary Dx) Social History Tobacco Use Types Packs/Day Years Used Date Smoking Tobacco: Never Assessed Comments Unknown Sex and Gender Information Value Date Recorded Sex Assigned at Not on file Legal Sex Female 3:40 AM HEAD PUMPER Gender Identity Not on file Sexual [...] documented as of this encounter Care Teams Roguer Relationship Specialty Start Date End Date Areli Gurrola MD [address] [facility] [place] [address] PCP - General Specialist 08/12/19 documented as of this encounter
--- OUTSIDE RECORDS SUMMARY | 2025-01-01 17:44 | XMS_ITS | Encounter Summary ---
Author Organization [facility] Address [address] [place] [address] Care Team Providers Care Scrap Shear Operator Name Role Phone Areli Gurrola MD Primary Care Provider Encounter Details Date Type Department Care Team (Latest Contact Info) Description 09/08/1999 Outpatient Historical [facility] [address] [place] [address] Trell York MD [address] [place] [phone] Lumbago (Primary Dx); Obesity, unspecified Social History Tobacco Use Types Packs/Day Years Used Date Smoking Tobacco: Never Assessed Comments Unknown Sex and Gender Information Value Date Recorded Sex Assigned at Not on file Legal Sex Female 3:40 AM CHIROPRACTIC PHYSICIAN Gender Identity Not on file Sexual Orientation Not on file documented as of this encounter Plan of Treatment Not on file documented as of this encounter Visit Diagnoses Diagnosis Lumbago- Primary Obesity, unspecified documented in this encounter Additional Health Concerns Infection Onset Date Last Indicated Resolved Time R/O COVID-19 01/31/2020 01/31/2020 02/02/2020 10:3 2 AM CDT documented as of this encounter Care Teams Scrap Shear Operator Relationship Specialty Start Date End Date Areli Gurrola MD [address] [facility] [place] [address] PCP - General Specialist 08/12/19 documented as of this encounter
--- OUTSIDE RECORDS SUMMARY | 2025-01-01 17:44 | XMS_ITS | Encounter Summary ---
Author Organization [facility] Address [address] [place] [address] Care Team Providers Care Senior Technical Business Analyst Name Role Phone Areli Gurrola MD Primary Care Provider Encounter Details Date Type Department Care Team (Late st Contact Info) Description 03/25/1999 Outpatient Historical HIS [facility] Social History Tobacco Use Types Packs/Day Years Used Date Smoking Tobacco: Never Assessed Comments Unknown Sex and Gender Information Value Date Recorded Sex Assigned at Not on file Legal Sex Female 3:40 AM FIBERGLASS FABRICATOR Gender Identity Not on file Sexual Orientation Not on file documented as of this encounter Plan of Treatment Not on file documented as of this encounter Visit Diagnoses Not on filedocumented in this encounter Additional Health Concerns Infection Onset Date Last Indicated Resolved Time R/O COVID-19 01/31/2020 01/31/2020 02/02/2020 10:3 2 AM CDT documented as of this encounter Care Teams Senior Technical Business Analyst Relationship Specialty Start Date End Date Areli Gurrola MD [address] [place] [address] PCP - General Specialist 08/12/19 documented as of this encounter
--- OUTSIDE RECORDS SUMMARY | 2025-01-01 17:44 | XMS_ITS | Encounter Summary ---
Author Organization [facility] Address [address] [place] [address] Care Team Providers Care Shanker Out Name Role Phone Areli Gurrola MD Primary Care Provider Encounter Details Date Type Department Care Team (Late st Contact Info) Description 03/25/1999 Outpatient Historical [facility] Social History Tobacco Use Types Packs/Day Years Used Date Smoking Tobacco: Never Assessed Comments Unknown Sex and Gender Information Value Date Recorded Sex Assigned at Not on file Legal Sex Female 3:40 AM VELVET STEAMER Gender Identity Not on file Sexual Orientation Not on file documented as of this encounter Plan of Treatment Not on file documented as of this encounter Visit Diagnoses Not on filedocumented in this encounter Additional Health Concerns Infection Onset Date Last Indicated Resolved Time R/O COVID-19 01/31/2020 01/31/2020 02/02/2020 10:3 2 AM CDT documented as of this encounter Care Teams Shanker Out Relationship Specialty Start Date End Date Areli Gurrola MD [address] [place] [address] PCP - General Specialist 08/12/19 documented as of this encounter
--- OUTSIDE RECORDS SUMMARY | 2025-01-01 17:44 | XMS_ITS | Encounter Summary ---
Author Organization [facility] Address [address] [place] [address] Care Team Providers Care Market Developer Name Role Phone Areli Gurrola MD Primary Care Provider Encounter Details Date Type Department Care Team (Latest Contact Info) Description 08/09/1999 Outpatient Historical [facility] [address] [place] [address] Trell York MD [address] [place] [phone] Stricture of cervix (Primary Dx) Social History Tobacco Use Types Packs/Day Years Used Date Smoking Tobacco: Never Assessed Comments Unknown Sex and Gender Information Value Date Recorded Sex Assigned at Not on file Legal Sex Female 3:40 AM CAREER DEVELOPMENT COORDINATOR/TEACHER Gender Identity Not on file Sexual Orientation [...] documented as of this encounter Care Teams Market Developer Relationship Specialty Start Date End Date Areli Gurrola MD [address] [facility] [phone] PCP - General Specialist 08/12/19 documented as of this encounter
--- OUTSIDE RECORDS SUMMARY | 2025-01-01 17:44 | XMS_ITS | Encounter Summary ---
Author Organization [facility] Address [address] [facility] Attn: [place] [address] Care Team Providers Care Inspector Elevators Name Role Phone Areli Gurrola MD Primary [...] file Legal Sex Female 3:40 AM LEAD ELECTRICAL CONTROLS ENGINEER Gender Identity Not on file Sexual Orientation Not on file documented as of this encounter Plan of Treatment Not on file documented as of this encounter Visit Diagnoses Not on filedocumented in this encounter Additional Health Concerns Infection Onset Date Last Indicated Resolved Time R/O COVID-19 01/31/2020 01/31/2020 02/02/2020 10:3 2 AM CDT documented as of this encounter Care Teams Inspector Elevators Relationship Specialty Start Date End Date Areli Gurrola MD [address] [place] [address] PCP - General Specialist 08/12/19 documented as of this encounter
--- OUTSIDE RECORDS SUMMARY | 2025-01-01 17:44 | XMS_ITS | Encounter Summary ---
Author Organization [facility] Address [address] [place] [address] Care Team Providers Care Open Hearth Stockyard Supervisor Name Role Phone Areli Gurrola MD Primary Care Provider Encounter Details Date Type Department Care Team (Latest Contact Info) Description 12/05/2000 Outpatient [facility] [address] [place] [address] Trell York MD [address] [place] [phone] Lumbago (Primary Dx); Cervicalgia; Pain in joint, pelvic region and thigh Social History Tobacco Use Types Packs/Day Years Used Date Smoking Tobacco: Never Assessed Comments Unknown Sex and Gender Information Value Date Recorded Sex Assigned at Not on file Legal Sex Female 3:40 AM RISK SPECIALIST Gender Identity Not on file Sexual [...] documented as of this encounter Care Teams Open Hearth Stockyard Supervisor Relationship Specialty Start Date End Date Areli Gurrola MD [address] [place] [address] PCP - General Specialist 08/12/19 documented as of this encounter
--- OUTSIDE RECORDS SUMMARY | 2025-01-01 17:44 | XMS_ITS | Encounter Summary ---
Author Organization [facility] Address [address] [place] [address] Care Team Providers Care Cathode Washer Name Role Phone Areli Gurrola MD Primary Care Provider Encounter Details Date Type Department Care Team (Latest Contact Info) Description 09/29/1999 Outpatient Historical [facility] [address] [place] [address] Trell York MD [address] [place] [phone] Obesity, unspecified (Primary Dx); Lumbago Social History Tobacco Use Types Packs/Day Years Used Date Smoking Tobacco: Never Assessed Comments Unknown Sex and Gender Information Value Date Recorded Sex Assigned at Not on file Legal Sex Female 3:40 AM MINE ANALYST Gender Identity Not on file Sexual [...] documented as of this encounter Care Teams Cathode Washer Relationship Specialty Start Date End Date Areli Gurrola MD [address] [facility] [place] [address] PCP - General Specialist 08/12/19 documented as of this encounter
--- OUTSIDE RECORDS SUMMARY | 2025-01-01 17:44 | XMS_ITS | Encounter Summary ---
Author Organization [facility] Address [address] [place] [address] Care Team Providers Care Corn Chip Maker Name Role Phone Areli Gurrola MD Primary Care Provider Encounter Details Date Type Department Care Team (Latest Contact Info) Description 10/27/1999 Outpatient Historical [facility] [address] [place] [address] Trell York MD [address] [place] [phone] Lumbago (Primary Dx) Social History Tobacco Use Types Packs/Day Years Used Date Smoking Tobacco: Never Assessed Comments Unknown Sex and Gender Information Value Date Recorded Sex Assigned at Not on file Legal Sex Female 3:40 AM PAYROLL AND BENEFITS MANAGER Gender Identity Not on file Sexual Orientation Not on file documented as of this encounter Plan of Treatment Not on file documented as of this encounter Visit Diagnoses Diagnosis Lumbago- Primary documented in this encounter Additional Health Concerns Infection Onset Date Last Indicated Resolved Time R/O COVID-19 01/31/2020 01/31/2020 02/02/2020 10:3 2 AM CDT documented as of this encounter Care Teams Corn Chip Maker Relationship Specialty Start Date End Date Areli Gurrola MD [address] [facility] [place] [address] PCP - General Specialist 08/12/19 documented as of this encounter
--- OUTSIDE RECORDS SUMMARY | 2025-01-01 17:44 | XMS_ITS | Encounter Summary ---
Author Organization [facility] Address [address] [place] [address] Care Team Providers Care Government Sales Manager Name Role Phone Areli Gurrola MD Primary Care Provider Encounter Details Date Type Department Care Team (Latest Contact Info) Description 11/13/2000 Outpatient Historical [facility] [address] [place] [address] Trell York MD [address] [place] [phone] Insomnia, unspecified (Primary Dx); Lumbago Social History Tobacco Use Types Packs/Day Years Used Date Smoking Tobacco: Never Assessed Comments Unknown Sex and Gender Information Value Date Recorded Sex Assigned at Not on file Legal Sex Female 3:40 AM SENIOR BUSINESS MANAGER Gender Identity Not on file Sexual [...] documented as of this encounter Care Teams Government Sales Manager Relationship Specialty Start Date End Date Areli Gurrola MD [address] [facility] [place] [address] PCP - General Specialist 08/12/19 documented as of this encounter
--- OUTSIDE RECORDS SUMMARY | 2025-01-01 17:44 | XMS_ITS | Encounter Summary ---
Author Organization [facility] Address [address] [place] [address] Care Team Providers Care Skate Maker Name Role Phone Areli Gurrola MD Primary Care Provider Encounter Details Date Type Department Care Team (Late st Contact Info) Description 05/23/1999 Outpatient Historical [facility] [address] [facility] [address] [place] [address] Trell Hiens MD [address] [place] [address] Carpal tunnel syndrome (Primary Dx) Social History Tobacco Use Types Packs/Day Years Used Date Smoking Tobacco: Never Assessed Comments Unknown Sex and Gender Information Value Date Recorded Sex Assigned at Not on file Legal Sex Female 3:40 AM WELDER Gender Identity Not on file Sexual Orientation Not on file documented as of this encounter Plan of Treatment Not on file documented as of this encounter Visit Diagnoses Diagnosis Carpal tunnel syndrome- Primary documented in this encounter Additional Health Concerns Infection Onset Date Last Indicated Resolved Time R/O COVID-19 01/31/2020 01/31/2020 02/02/2020 10:3 2 AM CDT documented as of this encounter Care Teams Skate Maker Relationship Specialty Start Date End Date Areli Gurrola MD [address] [place] [address] PCP - General Specialist 08/12/19 documented as of this encounter
--- OUTSIDE RECORDS SUMMARY | 2025-01-01 17:44 | XMS_ITS | Encounter Summary ---
Author Organization [facility] Address [address] [facility] Attn: [place] [address] Care Team Providers Care Linux Developer Name Role Phone Areli Gurrola MD Primary Care Provider Encounter Details Date Type Department Care Team (Late st Contact Info) Description 08/24/1999 Outpatient Historical Joseph Ramos MD [address] [place] [address] Social History Tobacco Use Types Packs/Day Years Used Date Smoking Tobacco: Never Assessed Comments Unknown Sex and Gender Information Value Date Recorded Sex Assigned at Not on file Legal Sex Female 3:40 AM SLURRY TANK TENDER Gender Identity Not on file Sexual Orientation Not on file documented as of this encounter Plan of Treatment Not on file documented as of this encounter Visit Diagnoses Not on filedocumented in this encounter Additional Health Concerns Infection Onset Date Last Indicated Resolved Time R/O COVID-19 01/31/2020 01/31/2020 02/02/2020 10:3 2 AM CDT documented as of this encounter Care Teams Linux Developer Relationship Specialty Start Date End Date Areli Gurrola MD [address] [facility] [place] [address] PCP - General Specialist 08/12/19 documented as of this encounter
--- OUTSIDE RECORDS SUMMARY | 2025-01-01 17:44 | XMS_ITS | Encounter Summary ---
Author Organization [facility] Address [address] [place] [address] Care Team Providers Care Education Consultant Name Role Phone Areli Gurrola MD Primary Care Provider Encounter Details Date Type Department Care Team (Late st Contact Info) Description 03/16/1999 Outpatient Historical HIS [facility] Social History Tobacco Use Types Packs/Day Years Used Date Smoking Tobacco: Never Assessed Comments Unknown Sex and Gender Information Value Date Recorded Sex Assigned at Not on file Legal Sex Female 3:40 AM SECURITY SYSTEM ANALYST Gender Identity Not on file Sexual Orientation Not on file documented as of this encounter Plan of Treatment Not on file documented as of this encounter Visit Diagnoses Not on filedocumented in this encounter Additional Health Concerns Infection Onset Date Last Indicated Resolved Time R/O COVID-19 01/31/2020 01/31/2020 02/02/2020 10:3 2 AM CDT documented as of this encounter Care Teams Education Consultant Relationship Specialty Start Date End Date Areli Gurrola MD [address] [place] [address] PCP - General Specialist 08/12/19 documented as of this encounter
--- OUTSIDE RECORDS SUMMARY | 2025-01-01 17:44 | XMS_ITS | Encounter Summary ---
Author Organization [facility] Address [address] [place] [address] Care Team Providers Care Lead Technical Writer Name Role Phone Areli Gurrola MD Primary Care Provider Encounter Details Date Type Department Care Team (Late st Contact Info) Description 05/03/1999 Outpatient Historical [facility], Gibran Lynn MD [address] [facility] [address] [place] [address] Cramp of limb (Primary Dx) Social History Tobacco Use Types Packs/Day Years Used Date Smoking Tobacco: Never Assessed Comments Unknown Sex and Gender Information Value Date Recorded Sex Assigned at Not on file Legal Sex Female 3:40 AM OPTOMETRIST PRESIDENT/PRACTICE OWNER Gender Identity Not on file Sexual Orientation Not on file documented as of this encounter Plan of Treatment Not on file documented as of this encounter Visit Diagnoses Diagnosis Cramp of limb- Primary documented in this encounter Additional Health Concerns Infection Onset Date Last Indicated Resolved Time R/O COVID-19 01/31/2020 01/31/2020 02/02/2020 10:3 2 AM CDT documented as of this encounter Care Teams Lead Technical Writer Relationship Specialty Start Date End Date Areli Gurrola MD [address] [place] [address] PCP - General Specialist 08/12/19 documented as of this encounter
--- OUTSIDE RECORDS SUMMARY | 2025-01-01 17:44 | XMS_ITS | Encounter Summary ---
Author Organization [facility] Address [address] [place] [address] Care Team Providers Care Exercise Science Internship Name Role Phone Areli Gurrola MD Primary Care Provider Encounter Details Date Type Department Care Team (Latest Contact Info) Description 03/27/[address] [facility] [place] [address] [place] [address] Trell York MD [address] [place] [phone] CERVICALGIA (Primary Dx); NEUROTIC DEPRESSION; LUMBAGO Social History Tobacco Use Types Packs/Day Years Used Date Smoking Tobacco: Never Assessed Comments Unknown Sex and Gender Information Value Date Recorded Sex Assigned at Not on file Legal Sex Female 3:40 AM EXTRACT PULLER Gender Identity Not on file Sexual Orientation [...] documented as of this encounter Care Teams Exercise Science Internship Relationship Specialty Start Date End Date Areli Gurrola MD [address] [place] [address] PCP - General Specialist 08/12/19 documented as of this encounter
--- OUTSIDE RECORDS SUMMARY | 2025-01-01 17:44 | XMS_ITS | Encounter Summary ---
Author Organization [facility] Address [address] [place] [address] Care Team Providers Care Diplomatic Officer Name Role Phone Areli Gurrola MD Primary Care Provider Encounter Details Date Type Department Care Team (Latest Contact Info) Description 06/20/1999 Outpatient Historical [facility] Joseph Ramos MD [address] [place] [address] Pain in joint, hand (Primary Dx) Social History Tobacco Use Types Packs/Day Years Used Date Smoking Tobacco: Never Assessed Comments Unknown Sex and Gender Information Value Date Recorded Sex Assigned at Not on file Legal Sex Female 3:40 AM ACADEMIC COUNSELOR Gender Identity Not on file Sexual [...] documented as of this encounter Care Teams Diplomatic Officer Relationship Specialty Start Date End Date Areli Gurrola MD [address] [facility] [place] [address] PCP - General Specialist 08/12/19 documented as of this encounter
--- OUTSIDE RECORDS SUMMARY | 2025-01-01 17:44 | XMS_ITS | Encounter Summary ---
Author Organization [facility] Address [address] [place] [address] Care Team Providers Care Dental Appliance Fixer Name Role Phone Areli Gurrola MD Primary Care Provider Encounter Details Date Type Department Care Team (Late st Contact Info) Description 03/28/1999 Outpatient Historical [facility] Social History Tobacco Use Types Packs/Day Years Used Date Smoking Tobacco: Never Assessed Comments Unknown Sex and Gender Information Value Date Recorded Sex Assigned at Not on file Legal Sex Female 3:40 AM HEAD ANIMAL TRAINER Gender Identity Not on file Sexual Orientation Not on file documented as of this encounter Plan of Treatment Not on file documented as of this encounter Visit Diagnoses Not on filedocumented in this encounter Additional Health Concerns Infection Onset Date Last Indicated Resolved Time R/O COVID-19 01/31/2020 01/31/2020 02/02/2020 10:3 2 AM CDT documented as of this encounter Care Teams Dental Appliance Fixer Relationship Specialty Start Date End Date Areli Gurrola MD [address] [place] [address] PCP - General Specialist 08/12/19 documented as of this encounter
--- OUTSIDE RECORDS SUMMARY | 2025-01-01 17:44 | XMS_ITS | Encounter Summary ---
Author Organization [facility] Address [address] Attn: [place] [address] Care Team Providers Care Channel Director Name Role Phone Areli Gurrola MD [...] on file Legal Sex Female 3:40 AM WELL LOGGER Gender Identity Not on file Sexual Orientation Not on file documented as of this encounter Plan of Treatment Not on file documented as of this encounter Visit Diagnoses Not on filedocumented in this encounter Additional Health Concerns Infection Onset Date Last Indicated Resolved Time R/O COVID-19 01/31/2020 01/31/2020 02/02/2020 10:3 2 AM CDT documented as of this encounter Care Teams Channel Director Relationship Specialty Start Date End Date Areli Gurrola MD [address] [facility] [place] [address] PCP - General Specialist 08/12/19 documented as of this encounter
--- OUTSIDE RECORDS SUMMARY | 2025-01-01 17:44 | XMS_ITS | Encounter Summary ---
Author Organization [facility] Address [address] [place] [address] Care Team Providers Care It Service Manager Name Role Phone Areli Gurrola MD Primary Care Provider Encounter Details Date Type Department Care Team (Latest Contact Info) Description 08/18/1999 Outpatient Historical [facility] Joseph Ramos MD [address] [place] [address] Pain in joint, hand (Primary Dx) Social History Tobacco Use Types Packs/Day Years Used Date Smoking Tobacco: Never Assessed Comments Unknown Sex and Gender Information Value Date Recorded Sex Assigned at Not on file Legal Sex Female 3:40 AM ELECTRIC METER TESTER HELPER Gender Identity Not on file Sexual [...] as of this encounter Care Teams It Service Manager Relationship Specialty Start Date End Date Areli Gurrola MD [address] [facility] [place] [address] PCP - General Specialist 08/12/19 documented as of this encounter
--- OUTSIDE RECORDS SUMMARY | 2025-01-01 17:44 | XMS_ITS | Encounter Summary ---
Author Organization [facility] Address [address] [place] [address] Care Team Providers Care Supervisor Capacitor Processing Name Role Phone Areli Gurrola MD Primary Care Provider Encounter Details Date Type Department Care Team (Latest Contact Info) Description 05/09/1999 Outpatient Historical [facility] [address] [place] [address] Trell York MD [address] [place] [phone] Cervical spinal stenosis (Primary Dx); Contusion of elbow Social History Tobacco Use Types Packs/Day Years Used Date Smoking Tobacco: Never Assessed Comments Unknown Sex and Gender Information Value Date Recorded Sex Assigned at Not on file Legal Sex Female 3:40 AM DIAGNOSTIC RADIOLOGIST Gender Identity Not on file Sexual Orientation [...] as of this encounter Care Teams Supervisor Capacitor Processing Relationship Specialty Start Date End Date Areli Gurrola MD [address] [place] [address] PCP - General Specialist 08/12/19 documented as of this encounter
--- OUTSIDE RECORDS SUMMARY | 2025-01-01 17:44 | XMS_ITS | Encounter Summary ---
Author Organization [facility] Address [address] [place] [address] Care Team Providers Care Lead Quality Technician Name Role Phone Areli Gurrola MD Primary Care Provider Encounter Details Date Type Department Care Team (Latest Contact Info) Description 07/27/2000 Outpatient Historical [facility] [address] [place] [address] Trell York MD [address] [place] [phone] Unspecified disorder of female genital organs (Primary Dx); Cervicalgia Social History Tobacco Use Types Packs/Day Years Used Date Smoking Tobacco: Never Assessed Comments Unknown Sex and Gender Information Value Date Recorded Sex Assigned at Not on file Legal Sex Female 3:40 AM STRUCTURAL ENGINEER Gender Identity Not on file Sexual [...] as of this encounter Care Teams Lead Quality Technician Relationship Specialty Start Date End Date Areli Gurrola MD [address] [place] [address] PCP - General Specialist 08/12/19 documented as of this encounter
--- OUTSIDE RECORDS SUMMARY | 2025-01-01 17:44 | XMS_ITS | Encounter Summary ---
Author Organization [facility] Address [address] [place] [address] Care Team Providers Care Customer Facilities Supervisor Name Role Phone Areli Gurrola MD Primary Care Provider Encounter Details Date Type Department Care Team (Latest Contact Info) Description 05/24/[address] [facility] [address] [place] [address] Trell York MD [address] [place] [phone] Edema (Primary Dx); Lumbago Social History Tobacco Use Types Packs/Day Years Used Date Smoking Tobacco: Never Assessed Comments Unknown Sex and Gender Information Value Date Recorded Sex Assigned at Not on file Legal Sex Female 3:40 AM ELECTRICAL SIGN WIRER HELPER Gender Identity Not on file Sexual [...] as of this encounter Care Teams Customer Facilities Supervisor Relationship Specialty Start Date End Date Areli Gurrola MD [address] [facility] [place] [address] PCP - General Specialist 08/12/19 documented as of this encounter
--- OUTSIDE RECORDS SUMMARY | 2025-01-01 17:44 | XMS_ITS | Encounter Summary ---
Author Organization [facility] Address [address] [place] [address] Care Team Providers Care Rail Car Welder Name Role Phone Areli Gurrola MD Primary Care Provider Encounter Details Date Type Department Care Team (Latest Contact Info) Description 06/08/1999 Outpatient [facility] [address] [place] [address] Trell York MD [address] [place] [phone] Carpal tunnel syndrome (Primary Dx); Sprain of neck; Obesity, unspecified Social History Tobacco Use Types Packs/Day Years Used Date Smoking Tobacco: Never Assessed Comments Unknown Sex and Gender Information Value Date Recorded Sex Assigned at Not on file Legal Sex Female 3:40 AM SERVICE ORDER TAKER Gender Identity Not on file Sexual Orientation [...] documented as of this encounter Care Teams Rail Car Welder Relationship Specialty Start Date End Date Areli Gurrola MD [address] [facility] [place] [address] PCP - General Specialist 08/12/19 documented as of this encounter
--- OUTSIDE RECORDS SUMMARY | 2025-01-01 17:44 | XMS_ITS | Encounter Summary ---
Author Organization [facility] Address [address] [place] [address] Care Team Providers Care Food Bagging Machine Operator Name Role Phone Areli Gurrola MD Primary Care Provider Encounter Details Date Type Department Care Team (Late st Contact Info) Description 03/30/1999 Outpatient Historical [facility] Social History Tobacco Use Types Packs/Day Years Used Date Smoking Tobacco: Never Assessed Comments Unknown Sex and Gender Information Value Date Recorded Sex Assigned at Not on file Legal Sex Female 3:40 AM PREPARATOR Gender Identity Not on file Sexual Orientation Not on file documented as of this encounter Plan of Treatment Not on file documented as of this encounter Visit Diagnoses Not on filedocumented in this encounter Additional Health Concerns Infection Onset Date Last Indicated Resolved Time R/O COVID-19 01/31/2020 01/31/2020 02/02/2020 10:3 2 AM CDT documented as of this encounter Care Teams Food Bagging Machine Operator Relationship Specialty Start Date End Date Areli Gurrola MD [address] [place] [address] PCP - General Specialist 08/12/19 documented as of this encounter
--- OUTSIDE RECORDS SUMMARY | 2025-01-01 17:44 | XMS_ITS | Encounter Summary ---
Author Organization [facility] Address [address] [place] [address] Care Team Providers Care Colored Liquid Plastic Applier Name Role Phone Areli Gurrola MD Primary Care Provider Encounter Details Date Type Department Care Team (Latest Contact Info) Description 03/23/1999 Outpatient [facility] [address] [place] [address] Alumno, Gibran Lynn MD [address] [place] [address] Unspecified viral infection, in conditions classified elsewhere and of unspecified site (Primary Dx); Sprain and strain of other specified sites of shoulder and upper arm; Tobacco use disorder Social History Tobacco Use Types Packs/Day Years Used Date Smoking Tobacco: Never Assessed Comments Unknown Sex and Gender Information Value Date Recorded Sex Assigned at Not on file Legal Sex Female 3:40 AM BELL CAPTAIN Gender Identity Not on file Sexual [...] documented as of this encounter Care Teams Colored Liquid Plastic Applier Relationship Specialty Start Date End Date Areli Gurrola MD [address] [place] [address] PCP - General Specialist 08/12/19 documented as of this encounter
--- OUTSIDE RECORDS SUMMARY | 2025-01-01 17:44 | XMS_ITS | Clinical Summary ---
Author Organization [facility] Address [address] [place] [address] Care Team Providers Care Medical Assistant Ob Gyn Name Role Phone Areli Gurrola MD Primary [...] on file Legal Sex Female 3:40 AM LUMBER TAILER Gender Identity Not on file Sexual Orientation [...] or Tdap) 03/15/2030 03/15/2020, 11/07/1997, 03/03/1997 Insurance [facility] DUAL COMPLETE MCR PPO D-SNP MEDICAID [place] Advance Directives For more information, please contact: [phone] * Full Code (Latest Code Status on File) Date Activated Date Inactivated Comments 02/17/2016 12:44 PM 02/17/2016 4:46 PM Care Teams Medical Assistant Ob Gyn Relationship Specialty Start Date End Date Areli Gurrola MD [address] [place] [address] PCP - General Specialist 08/12/19
--- OUTSIDE RECORDS SUMMARY | 2025-01-01 17:44 | XMS_ITS | Encounter Summary ---
Author Organization [facility] Address [address] [place] [address] Care Team Providers Care Decorator Inspector Name Role Phone Areli Gurrola MD Primary Care Provider Encounter Details Date Type Department Care Team (Latest Contact Info) Description 07/20/1999 Outpatient Historical [facility] Joseph Ramos MD [address] [place] [address] Pain in joint, hand (Primary Dx) Social History Tobacco Use Types Packs/Day Years Used Date Smoking Tobacco: Never Assessed Comments Unknown Sex and Gender Information Value Date Recorded Sex Assigned at Not on file Legal Sex Female 3:40 AM ELECTRIC SYSTEM OPERATOR Gender Identity Not on file Sexual [...] documented as of this encounter Care Teams Decorator Inspector Relationship Specialty Start Date End Date Areli Gurrola MD [address] [facility] [place] [address] PCP - General Specialist 08/12/19 documented as of this encounter
--- OUTSIDE RECORDS SUMMARY | 2025-01-01 17:44 | XMS_ITS | Encounter Summary ---
Author Organization [facility] Address [address] [place] [address] Care Team Providers Care Patrol Captain Name Role Phone Areli Gurrola MD Primary Care Provider Encounter Details Date Type Department Care Team (Late st Contact Info) Description 03/18/1999 Outpatient Historical [facility] Social History Tobacco Use Types Packs/Day Years Used Date Smoking Tobacco: Never Assessed Comments Unknown Sex and Gender Information Value Date Recorded Sex Assigned at Not on file Legal Sex Female 3:40 AM ACETONE RECOVERY WORKER Gender Identity Not on file Sexual Orientation Not on file documented as of this encounter Plan of Treatment Not on file documented as of this encounter Visit Diagnoses Not on filedocumented in this encounter Additional Health Concerns Infection Onset Date Last Indicated Resolved Time R/O COVID-19 01/31/2020 01/31/2020 02/02/2020 10:3 2 AM CDT documented as of this encounter Care Teams Patrol Captain Relationship Specialty Start Date End Date Areli Gurrola MD [address] [place] [address] PCP - General Specialist 08/12/19 documented as of this encounter
--- OUTSIDE RECORDS SUMMARY | 2025-01-01 17:44 | XMS_ITS | Encounter Summary ---
Author Organization [facility] Address [address] [place] [address] Care Team Providers Care In Store Demonstrator Name Role Phone Areli Gurrola MD Primary Care Provider Encounter Details Date Type Department Care Team (Latest Contact Info) Description 01/07/2001 Outpatient Historical [facility] [address] [place] [address] Trell York MD [address] [place] [phone] Unspecified disorder of female genital organs (Primary Dx); Cervicalgia; Lumbago Social History Tobacco Use Types Packs/Day Years Used Date Smoking Tobacco: Never Assessed Comments Unknown Sex and Gender Information Value Date Recorded Sex Assigned at Not on file Legal Sex Female 3:40 AM CLIP BAKER Gender Identity Not on file Sexual Orientation [...] documented as of this encounter Care Teams In Store Demonstrator Relationship Specialty Start Date End Date Areli Gurrola MD [address] [place] [address] PCP - General Specialist 08/12/19 documented as of this encounter
--- OUTSIDE RECORDS SUMMARY | 2025-01-01 17:44 | XMS_ITS | Encounter Summary ---
Author Organization [facility] Address [address] Attn: [place] [address] Care Team Providers Care Procurement Director Name Role Phone Areli Gurrola MD Primary Care Provider Encounter Details Date Type Department Care Team (Late st Contact Info) Description 08/19/1999 Outpatient Historical Joseph Ramos MD [address] [place] [address] Social History Tobacco Use Types Packs/Day Years Used Date Smoking Tobacco: Never Assessed Comments Unknown Sex and Gender Information Value Date Recorded Sex Assigned at Not on file Legal Sex Female 3:40 AM RN ENT Gender Identity Not on file Sexual Orientation Not on file documented as of this encounter Plan of Treatment Not on file documented as of this encounter Visit Diagnoses Not on filedocumented in this encounter Additional Health Concerns Infection Onset Date Last Indicated Resolved Time R/O COVID-19 01/31/2020 01/31/2020 02/02/2020 10:3 2 AM CDT documented as of this encounter Care Teams Procurement Director Relationship Specialty Start Date End Date Areli Gurrola MD [address] [facility] [place] [address] PCP - General Specialist 08/12/19 documented as of this encounter
--- OUTSIDE RECORDS SUMMARY | 2025-01-01 17:44 | XMS_ITS | Encounter Summary ---
Author Organization [facility] Address [address] [facility] Attn: [place] [address] Care Team Providers Care Emergency Worker Name Role Phone Areli Gurrola MD Primary Care Provider Encounter Details Date Type Department Care Team (Late st Contact Info) Description 11/16/1999 Outpatient Historical Joseph Ramos MD [address] [place] [address] Social History Tobacco Use Types Packs/Day Years Used Date Smoking Tobacco: Never Assessed Comments Unknown Sex and Gender Information Value Date Recorded Sex Assigned at Not on file Legal Sex Female 3:40 AM ASSISTANT CUSTOMER SERVICE MANAGER Gender Identity Not on file Sexual Orientation Not on file documented as of this encounter Plan of Treatment Not on file documented as of this encounter Visit Diagnoses Not on filedocumented in this encounter Additional Health Concerns Infection Onset Date Last Indicated Resolved Time R/O COVID-19 01/31/2020 01/31/2020 02/02/2020 10:3 2 AM CDT documented as of this encounter Care Teams Emergency Worker Relationship Specialty Start Date End Date Areli Gurrola MD [address] [facility] [place] [address] PCP - General Specialist 08/12/19 documented as of this encounter
--- OUTSIDE RECORDS SUMMARY | 2025-01-01 17:44 | XMS_ITS | Encounter Summary ---
Author Organization [facility] Address [address] [facility] [address] Attn: [place] [address] Care Team Providers Care Bulldozer Engineer Name Role Phone Areli Gurrola MD Primary Care Provider Encounter Details Date Type Department Care Team (Late st Contact Info) Description 11/10/1999 Outpatient Historical Joseph Ramos MD [address] [place] [address] Social History Tobacco Use Types Packs/Day Years Used Date Smoking Tobacco: Never Assessed Comments Unknown Sex and Gender Information Value Date Recorded Sex Assigned at Not on file Legal Sex Female 3:40 AM CHIEF TRANSFER AND PUMPHOUSE OPERATOR Gender Identity Not on file Sexual Orientation Not on file documented as of this encounter Plan of Treatment Not on file documented as of this encounter Visit Diagnoses Not on filedocumented in this encounter Additional Health Concerns Infection Onset Date Last Indicated Resolved Time R/O COVID-19 01/31/2020 01/31/2020 02/02/2020 10:3 2 AM CDT documented as of this encounter Care Teams Bulldozer Engineer Relationship Specialty Start Date End Date Areli Gurrola MD [address] [facility] [place] [address] PCP - General Specialist 08/12/19 documented as of this encounter
--- OUTSIDE RECORDS SUMMARY | 2025-01-01 17:44 | XMS_ITS | Encounter Summary ---
Author Organization [facility] Address [address] [place] [address] Care Team Providers Care Lap Maker Name Role Phone Areli Gurrola MD Primary Care Provider Encounter Details Date Type Department Care Team (Latest Contact Info) Description 04/25/[address] [facility] [place] [address] [place] [address] Trell York MD [address] [place] [phone] ESOPHAGITIS, UNSPECIFIED (Primary Dx); LUMBAGO; SEBACEOUS CYST Social History Tobacco Use Types Packs/Day Years Used Date Smoking Tobacco: Never Assessed Comments Unknown Sex and Gender Information Value Date Recorded Sex Assigned at Not on file Legal Sex Female 3:40 AM SKIVER BLOCKERS Gender Identity Not on file Sexual Orientation [...] documented as of this encounter Care Teams Lap Maker Relationship Specialty Start Date End Date Areli Gurrola MD [address] [place] [address] PCP - General Specialist 08/12/19 documented as of this encounter
--- OUTSIDE RECORDS SUMMARY | 2025-01-01 17:44 | XMS_ITS | Encounter Summary ---
Author Organization [facility] Address [address] [place] [address] Care Team Providers Care Surgery Aid Name Role Phone Areli Gurrola MD Primary Care Provider Encounter Details Date Type Department Care Team (Latest Contact Info) Description 06/08/1999 Outpatient Historical [facility] Allison, Trell Pascual MD [address] [place] [address] Obesity, unspecified (Primary Dx); Encounter for long-term (current) use of other medications Social History Tobacco Use Types Packs/Day Years Used Date Smoking Tobacco: Never Assessed Comments Unknown Sex and Gender Information Value Date Recorded Sex Assigned at Not on file Legal Sex Female 3: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
--- OUTSIDE RECORDS SUMMARY | 2025-01-01 17:44 | XMS_ITS | Encounter Summary ---
Author Organization [facility] Address [address] [place] [address] Care Team Providers Care Continuous Churn Buttermaker Name Role Phone Areli Gurrola MD Primary Care Provider Encounter Details Date Type Department Care Team (Latest Contact Info) Description 11/28/1999 Outpatient Historical [facility] [address] [place] [address] Trell York MD [address] [place] [phone] Lumbago (Primary Dx) Social History Tobacco Use Types Packs/Day Years Used Date Smoking Tobacco: Never Assessed Comments Unknown Sex and Gender Information Value Date Recorded Sex Assigned at Not on file Legal Sex Female 3:40 AM IRISH MOSS 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 Gender Identity Not on file Sexual Orientation Not on file documented as of this encounter Plan of Treatment Not on file documented as of this encounter Visit Diagnoses Diagnosis Lumbago- Primary documented in this encounter Additional Health Concerns Infection Onset Date Last Indicated Resolved Time R/O COVID-19 01/31/2020 01/31/2020 02/02/2020 10:3 2 AM CDT documented as of this encounter Care Teams Continuous Churn Buttermaker Relationship Specialty Start Date End Date Areli Gurrola MD [address] [facility] [address] PCP - General Specialist 08/12/19 documented as of this encounter
--- OUTSIDE RECORDS SUMMARY | 2025-01-01 17:44 | XMS_ITS | Encounter Summary ---
Author Organization [facility] Address [address] Attn: [place] [address] Care Team Providers Care Admissions Evaluator Name Role Phone Areli Gurrola MD Primary Care Provider Encounter Details Date Type Department Care Team (Late st Contact Info) Description 06/06/2001 Outpatient Historical Ponder, Trell Pascual MD [address] [place] [phone] Social History Tobacco Use Types Packs/Day Years Used Date Smoking Tobacco: Never Assessed Comments Unknown Sex and Gender Information Value Date Recorded Sex Assigned at Not on file Legal Sex Female 3:40 AM REQUIREMENTS ENGINEER Gender Identity Not on file Sexual Orientation Not on file documented as of this encounter Plan of Treatment Not on file documented as of this encounter Visit Diagnoses Not on filedocumented in this encounter Additional Health Concerns Infection Onset Date Last Indicated Resolved Time R/O COVID-19 01/31/2020 01/31/2020 02/02/2020 10:3 2 AM CDT documented as of this encounter Care Teams Admissions Evaluator Relationship Specialty Start Date End Date Areli Gurrola MD [address] [place] [address] PCP - General Specialist 08/12/19 documented as of this encounter
--- OUTSIDE RECORDS SUMMARY | 2025-01-01 17:44 | XMS_ITS | Encounter Summary ---
Author Organization [facility] Address [address] [place] [address] Care Team Providers Care Personal Carer Name Role Phone Areli Gurrola MD Primary Care Provider Encounter Details Date Type Department Care Team (Latest Contact Info) Description 09/01/1999 Outpatient Historical [facility] Joseph Ramos MD [address] [place] [address] Pain in joint, hand (Primary Dx); Follow-up examination following surgery Social History Tobacco Use Types Packs/Day Years Used Date Smoking Tobacco: Never Assessed Comments Unknown Sex and Gender Information Value Date Recorded Sex Assigned at Not on file Legal Sex Female 3:40 AM MERCHANDISING COORDINATOR Gender Identity Not on file Sexual [...] documented as of this encounter Care Teams Personal Carer Relationship Specialty Start Date End Date Areli Gurrola MD [address] [place] [address] PCP - General Specialist 08/12/19 documented as of this encounter
--- OUTSIDE RECORDS SUMMARY | 2025-01-01 17:44 | XMS_ITS | Encounter Summary ---
Author Organization [facility] Address [address] [place] [address] Care Team Providers Care Nuclear Spectroscopist Name Role Phone Areli Gurrola MD Primary Care Provider Encounter Details Date Type Department Care Team (Latest Contact Info) Description 10/08/2000 [facility] [address] [place] [address] Trell York MD [address] [place] [phone] Sprain and strain of unspecified site of knee and leg (Primary Dx) Social History Tobacco Use Types Packs/Day Years Used Date Smoking Tobacco: Never Assessed Comments Unknown Sex and Gender Information Value Date Recorded Sex Assigned at Not on file Legal Sex Female 3:40 AM FINANCIAL ACCOUNTING MANAGER Gender Identity Not on file Sexual [...] documented as of this encounter Care Teams Nuclear Spectroscopist Relationship Specialty Start Date End Date Areli Gurrola MD [address] [facility] [place] [address] PCP - General Specialist 08/12/19 documented as of this encounter
--- OUTSIDE RECORDS SUMMARY | 2025-01-01 17:44 | XMS_ITS | Encounter Summary ---
Author Organization [facility] Address [address] Attn: [place] [address] Care Team Providers Care Money Laundering Investigator Name Role Phone Areli Gurrola MD Primary Care Provider Encounter Details Date Type Department Care Team (Late st Contact Info) Description 06/11/2001 Inpatient Historical Renan Martinez MD [address] [place] [address] Social History Tobacco Use Types Packs/Day Years Used Date Smoking Tobacco: Never Assessed Comments Unknown Sex and Gender Information Value Date Recorded Sex Assigned at Not on file Legal Sex Female 3:40 AM WELL LOGGING MUD ANALYSIS CAPTAIN Gender Identity Not on file Sexual Orientation Not on file documented as of this encounter Plan of Treatment Not on file documented as of this encounter Visit Diagnoses Not on filedocumented in this encounter Additional Health Concerns Infection Onset Date Last Indicated Resolved Time R/O COVID-19 01/31/2020 01/31/2020 02/02/2020 10:3 2 AM CDT documented as of this encounter Care Teams Money Laundering Investigator Relationship Specialty Start Date End Date Areli Gurrola MD [address] [facility] [place] [address] PCP - General Specialist 08/12/19 documented as of this encounter
--- OUTSIDE RECORDS SUMMARY | 2025-01-01 17:45 | XMS_ITS | Encounter Summary ---
Author Organization [facility] Address [address] [place] [address] Care Team Providers Care Engineer Station Mainline Name Role Phone Areli Gurrola MD Primary Care Provider Encounter Details Date Type Department Care Team (Latest Contact Info) Description 02/14/1999 Outpatient Historical [facility] [place] [address] [place] [address] [place], Gibran Lynn MD [address] [place] [address] Sprain and strain of other specified sites of shoulder and upper arm (Primary Dx) Social History Tobacco Use Types Packs/Day Years Used Date Smoking Tobacco: Never Assessed Comments Unknown Sex and Gender Information Value Date Recorded Sex Assigned at Not on file Legal Sex Female 3:40 AM MANAGER STORE Gender Identity Not on file Sexual Orientation [...] as of this encounter Care Teams Engineer Station Mainline Relationship Specialty Start Date End Date Areli Gurrola MD [address] [place] [address] PCP - General Specialist 08/12/19 documented as of this encounter
--- OUTSIDE RECORDS SUMMARY | 2025-01-01 17:45 | XMS_ITS | Encounter Summary ---
Author Organization [facility] Address [address] [place] [address] Care Team Providers Care Regulatory Attorney Name Role Phone Areli Gurrola MD Primary Care Provider Encounter Details Date Type Department Care Team (Latest Contact Info) Description 10/03/2002 [facility] [place] [address] [place] [address] Gordon Cabral MD NO ADDRESS ON FILE METRORRHAGIA (Primary Dx) Social History Tobacco Use Types Packs/Day Years Used Date Smoking Tobacco: Never Assessed Comments Unknown Sex and Gender Information Value Date Recorded Sex Assigned at Not on file Legal Sex Female 3:40 AM SALVAGE CUTTER Gender Identity Not on file Sexual Orientation Not on file documented as of this encounter Plan of Treatment Not on file documented as of this encounter Visit Diagnoses Diagnosis Metrorrhagia- Primary documented in this encounter Additional Health Concerns Infection Onset Date Last Indicated Resolved Time R/O COVID-19 01/31/2020 01/31/2020 02/02/2020 10:3 2 AM CDT documented as of this encounter Care Teams Regulatory Attorney Relationship Specialty Start Date End Date Areli Gurrola MD [address] [place] [address] PCP - General Specialist 08/12/19 documented as of this encounter
--- OUTSIDE RECORDS SUMMARY | 2025-01-01 17:45 | XMS_ITS | Encounter Summary ---
Author Organization [facility] Address [address] [place] [address] Care Team Providers Care Software Program Manager Name Role Phone Areli Gurrola MD Primary Care Provider Encounter Details Date Type Department Care Team (Late st Contact Info) Description 10/27/2002 Emergency [facility] Emergency Department [address] [place] [address] Cira Archibald MD NO ADDRESS ON FILE FEMALE GENITAL SYMPTOMS NOS (Primary Dx) Social History Tobacco Use Types Packs/Day Years Used Date Smoking Tobacco: Never Assessed Comments Unknown Sex and Gender Information Value Date Recorded Sex Assigned at Not on file Legal Sex Female 3:40 AM GASOLINE PLANT OPERATOR Gender Identity Not on file Sexual [...] as of this encounter Care Teams Software Program Manager Relationship Specialty Start Date End Date Areli Gurrola MD [address] [place] [address] PCP - General Specialist 08/12/19 documented as of this encounter
--- OUTSIDE RECORDS SUMMARY | 2025-01-01 17:45 | XMS_ITS | Encounter Summary ---
Author Organization [facility] Address [address] [place] [address] Care Team Providers Care Human Service Technician Name Role Phone Areli Gurrola MD Primary Care Provider Encounter Details Date Type Department Care Team (Latest Contact Info) Description 11/25/2002 Outpatient Historical [facility] [place] [address] [place] [address] Gordon Cabral MD NO ADDRESS ON FILE DYSMENORRHEA (Primary Dx) Social History Tobacco Use Types Packs/Day Years Used Date Smoking Tobacco: Never Assessed Comments Unknown Sex and Gender Information Value Date Recorded Sex Assigned at Not on file Legal Sex Female 3:40 AM HOT SEALING MACHINE 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
--- OUTSIDE RECORDS SUMMARY | 2025-01-01 17:45 | XMS_ITS | Encounter Summary ---
Author Organization [facility] Address [address] [place] [address] Care Team Providers Care Operator Weapon Locating Radar Name Role Phone Areli Gurrola MD Primary Care Provider Encounter Details Date Type Department Care Team (Late st Contact Info) Description 06/24/2003 Outpatient Historical [facility] Imaging Services [place] [address] [place] [phone] Shayy Landry MD [address] [address] Social History Tobacco Use Types Packs/Day Years Used Date Smoking Tobacco: Never Assessed Comments Unknown Sex and Gender Information Value Date Recorded Sex Assigned at Not on file Legal Sex Female 3:40 AM LANGUAGE TEACHER Gender Identity Not on file Sexual Orientation Not on file documented as of this encounter Plan of Treatment Not on file documented as of this encounter Visit Diagnoses Not on filedocumented in this encounter Additional Health Concerns Infection Onset Date Last Indicated Resolved Time R/O COVID-19 01/31/2020 01/31/2020 02/02/2020 10:3 2 AM CDT documented as of this encounter Care Teams Operator Weapon Locating Radar Relationship Specialty Start Date End Date Areli Gurrola MD [address] [facility] [place] [address] PCP - General Specialist 08/12/19 documented as of this encounter
--- OUTSIDE RECORDS SUMMARY | 2025-01-01 17:45 | XMS_ITS | Encounter Summary ---
Author Organization [facility] Address [address] [place] [address] Care Team Providers Care Stitcher Standard Machine Name Role Phone Areli Gurrola MD Primary Care Provider Encounter Details Date Type Department Care Team (Latest Contact Info) Description 03/06/2005 Outpatient Historical [facility] [address] [place] [address] Trell York MD [address] [place] [phone] DENTAL DISORDER NOS (Primary Dx); CERVICALGIA; LUMBAGO; DYSTHYMIC DISORDER Social History Tobacco Use Types Packs/Day Years Used Date Smoking Tobacco: Never Assessed Comments Unknown Sex and Gender Information Value Date Recorded Sex Assigned at Not on file Legal Sex Female 3:40 AM PATIENT ACCESS REPRESENTATIVE Gender Identity Not on file Sexual [...] documented as of this encounter Care Teams Stitcher Standard Machine Relationship Specialty Start Date End Date Areli Gurrola MD [address] [facility] [place] [address] PCP - General Specialist 08/12/19 documented as of this encounter
--- OUTSIDE RECORDS SUMMARY | 2025-01-01 17:45 | XMS_ITS | Encounter Summary ---
Author Organization [facility] Address [address] [place] [address] Care Team Providers Care Software Publisher Name Role Phone Areli Gurrola MD Primary Care Provider Encounter Details Date Type Department Care Team (Late st Contact Info) Description 04/11/1999 Outpatient Historical [facility] Social History Tobacco Use Types Packs/Day Years Used Date Smoking Tobacco: Never Assessed Comments Unknown Sex and Gender Information Value Date Recorded Sex Assigned at Not on file Legal Sex Female 3:40 AM AMBULANCE DRIVER Gender Identity Not on [...] Areli Gurrola MD [address] [place] [address] PCP - General Specialist 08/12/19 documented as of this encounter
--- OUTSIDE RECORDS SUMMARY | 2025-01-01 17:45 | XMS_ITS | Encounter Summary ---
Author Organization [facility] Address [address] [place] [address] Care Team Providers Care Senior Branch Manager Name Role Phone Areli Gurrola MD Primary Care Provider Encounter Details Date Type Department Care Team (Latest Contact Info) Description 07/07/2004 Outpatient Historical [facility] Imaging Services [place] [address] [place] [address] Terll York MD [address] [place] [phone] CERVICAL DISC DISPLACMNT (Primary Dx) Social History Tobacco Use Types Packs/Day Years Used Date Smoking Tobacco: Never Assessed Comments Unknown Sex and Gender Information Value Date Recorded Sex Assigned at Not on file Legal Sex Female 3:40 AM BELLSTAND ATTENDANT Gender Identity Not on file Sexual Orientation [...] as of this encounter Care Teams Senior Branch Manager Relationship Specialty Start Date End Date Areli Gurrola MD [address] [facility] [place] [address] PCP - General Specialist 08/12/19 documented as of this encounter
--- OUTSIDE RECORDS SUMMARY | 2025-01-01 17:45 | XMS_ITS | Encounter Summary ---
Author Organization [facility] Address [address] [place] [address] Care Team Providers Care Supercalender Operator Name Role Phone Areli Gurrola MD Primary Care Provider Encounter Details Date Type Department Care Team (Latest Contact Info) Description 10/03/2002 Outpatient [facility] [address] [place] [address] [place] [address] Gordon Cabral MD NO ADDRESS ON FILE MENSTRUAL DISORDER NEC (Primary Dx) Social History Tobacco Use Types Packs/Day Years Used Date Smoking Tobacco: Never Assessed Comments Unknown Sex and Gender Information Value Date Recorded Sex Assigned at Not on file Legal Sex Female 3:40 AM STAMP COLLECTOR Gender Identity Not on file Sexual [...] documented as of this encounter Care Teams Supercalender Operator Relationship Specialty Start Date End Date Areli Gurrola MD [address] [facility] [place] [address] PCP - General Specialist 08/12/19 documented as of this encounter
--- OUTSIDE RECORDS SUMMARY | 2025-01-01 17:45 | XMS_ITS | Encounter Summary ---
Author Organization [facility] Address [address] [place] [address] Care Team Providers Care Sales Development Associate Name Role Phone Areli Gurrola MD Primary Care Provider Encounter Details Date Type Department Care Team (Late st Contact Info) Description 04/07/1999 Outpatient Historical [facility] Social History Tobacco Use Types Packs/Day Years Used Date Smoking Tobacco: Never Assessed Comments Unknown Sex and Gender Information Value Date Recorded Sex Assigned at Not on file Legal Sex Female 3:40 AM FORECLOSURE FIELD INSPECTOR Gender Identity Not on file Sexual Orientation Not on file documented as of this encounter Plan of Treatment Not on file documented as of this encounter Visit Diagnoses Not on filedocumented in this encounter Additional Health Concerns Infection Onset Date Last Indicated Resolved Time R/O COVID-19 01/31/2020 01/31/2020 02/02/2020 10:3 2 AM CDT documented as of this encounter Care Teams Sales Development Associate Relationship Specialty Start Date End Date Areli Gurrola MD [address] [place] [address] PCP - General Specialist 08/12/19 documented as of this encounter
--- OUTSIDE RECORDS SUMMARY | 2025-01-01 17:45 | XMS_ITS | Encounter Summary ---
Author Organization [facility] Address [address] [place] [address] Care Team Providers Care Acid Operator Name Role Phone Areli Gurrola MD Primary Care Provider Encounter Details Date Type Department Care Team (Latest Contact Info) Description 12/02/2002 Outpatient [facility] [place] [address] [place] [address] Gordon Cabral MD NO ADDRESS ON FILE FEMALE GENITAL SYMPTOMS NOS (Primary Dx) Social History Tobacco Use Types Packs/Day Years Used Date Smoking Tobacco: Never Assessed Comments Unknown Sex and Gender Information Value Date Recorded Sex Assigned at Not on file Legal Sex Female 3:40 AM WORLDWIDE CHIEF CREATIVE 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 [facility] [place] [address] PCP - General Specialist 08/12/19 documented as of this encounter
--- OUTSIDE RECORDS SUMMARY | 2025-01-01 17:45 | XMS_ITS | Encounter Summary ---
Author Organization [facility] Address [address] [place] [address] Care Team Providers Care Cement Tester Assistant Name Role Phone Areli Gurrola MD Primary Care Provider Encounter Details Date Type Department Care Team (Latest Contact Info) Description 05/20/2003 Outpatient Historical [facility] [address] [place] [address] Trell York MD [address] [place] [phone] ACUTE BRONCHITIS (Primary Dx) Social History Tobacco Use Types Packs/Day Years Used Date Smoking Tobacco: Never Assessed Comments Unknown Sex and Gender Information Value Date Recorded Sex Assigned at Not on file Legal Sex Female 3:40 AM ADDICTION SPECIALIST Gender Identity Not on file Sexual Orientation Not on file documented as of this encounter Plan of Treatment Not on file documented as of this encounter Visit Diagnoses Diagnosis Acute bronchitis- Primary documented in this encounter Additional Health Concerns Infection Onset Date Last Indicated Resolved Time R/O COVID-19 01/31/2020 01/31/2020 02/02/2020 10:3 2 AM CDT documented as of this encounter Care Teams Cement Tester Assistant Relationship Specialty Start Date End Date Areli Gurrola MD [address] [facility] [place] [address] PCP - General Specialist 08/12/19 documented as of this encounter
--- OUTSIDE RECORDS SUMMARY | 2025-01-01 17:45 | XMS_ITS | Encounter Summary ---
Author Organization [facility] Address [address] [place] [address] Care Team Providers Care Direct Entry Midwife Name Role Phone Areli Gurrola MD Primary Care Provider Encounter Details Date Type Department Care Team (Latest Contact Info) Description 04/11/2006 Outpatient Historical [facility] [address] [place] [address] Trell York MD [address] [place] [phone] Unspecified Essential Hypertension (Primary Dx); Dysthymic Disorder; Insomnia, Unspecified; Mononeuritis of Unspecified Site Social History Tobacco Use Types Packs/Day Years Used Date Smoking Tobacco: Never Assessed Comments Unknown Sex and Gender Information Value Date Recorded Sex Assigned at Not on file Legal Sex Female 3:40 AM ADMINISTRATIVE OFFICER Gender Identity Not on file Sexual [...] as of this encounter Care Teams Direct Entry Midwife Relationship Specialty Start Date End Date Areli Gurrola MD [address] [facility] [place] [address] PCP - General Specialist 08/12/19 documented as of this encounter
--- OUTSIDE RECORDS SUMMARY | 2025-01-01 17:45 | XMS_ITS | Encounter Summary ---
Author Organization [facility] Address [address] [place] [address] Care Team Providers Care Syrup Blender Name Role Phone Areli Gurrola MD Primary Care Provider Encounter Details Date Type Department Care Team (Latest Contact Info) Description 06/07/1998 Outpatient Historical [facility] PLASTIC SURGERY Charli Perez MD NO ADDRESS ON FILE Open wound of forehead (Primary Dx) Social History Tobacco Use Types Packs/Day Years Used Date Smoking Tobacco: Never Assessed Comments Unknown Sex and Gender Information Value Date Recorded Sex Assigned at Not on file Legal Sex Female 3:40 AM MONEY MARKET CLERK Gender Identity Not on file Sexual [...] documented as of this encounter Care Teams Syrup Blender Relationship Specialty Start Date End Date Areli Gurrola MD [address] [place] [address] PCP - General Specialist 08/12/19 documented as of this encounter
--- OUTSIDE RECORDS SUMMARY | 2025-01-01 17:45 | XMS_ITS | Clinical Summary ---
Author Organization [facility] Address [address] [place] [address] Care Team Providers Care Cell Lead Name Role Phone Unavailable Primary Care Provider [...] mg by mouth 2 times daily. Active HYDROcodone-lane taminophen (NORCO) 5-325 mg tabletIndicatio ns:Chronic bilateral low back pain without sciatica Take 1 Tablet by mouth every 4 hours as needed for Pain, Moderate. Max Daily Amount: 6 Tablets 4 Tablet 12/05/2024 Active furosemide (Lasix) 40 mg tablet Take 1 Tablet (40 mg) by mouth 2 times daily for 14 days. 28 Tablet 12/05/2024 12/20/19 25 Active Problems Problem Noted Date Diagnosed Date Chronic anemia 05/14/2024 Hx of multiple sclerosis 05/14/2024 History of lower GI bleeding 05/14/2024 Cigarette dependence 10/20/2015 Encounters Date Type Department Care Team Description 12/30/2024 External Device Data STL ABSTRACTION Provider, Abstract 12/09/2024 External Device Data [facility] ABSTRACTION Provider, Abstract 12/05/2024 7:24 PM CDT - 12/05/2024 9:47 PM CDT [facility] Emergency Medicine [address] [facility] [place] [address] Leg swelling (Primary Dx); Chronic bilateral low back pain without sciatica Discharge Disposition: Home or Self Care 11/22/2024 8:22 PM CDT - 11/22/2024 10:24 PM CDT [facility] Emergency Medicine [address] [facility] [address] [place] [phone] Julian Aivla MD Nausea (Primary Dx); Acute low back pain without sciatica, unspecified back pain laterality Discharge Disposition: Home or Self Care 11/22/2024 Travel 10/28/2024 External Device Data ST[facility] ABSTRACTION Provider, Abstract 10/28/2024 External Device Data [facility] ABSTRACTION Provider, Abstract 10/28/2024 External Device Data [facility] ABSTRACTION Provider, Abstract 10/24/2024 7:46 PM CDT - 10/24/2024 10:27 PM CDT [facility] Emergency Medicine [address] [place] [phone] Radha Castillo Y DO Pain in sacrum (Primary Dx); Acute midline low back pain without sciatica Discharge Disposition: Home or Self Care 10/24/2024 Travel from Last 3 Months Immunizations Immunization [...] cigarettes daily Alcohol Use Standard Drinks/Week Comments Not Currently 0 (1 standard drink = 0.6 oz pur e alcohol) Quit drinking a month ago Feeling Safe Answer Date Recorded Are you in a relationship wi th someone who hurts you emotionally and/or physically? 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 Gender Identity Not on file Sexual Orientation Not on file Last Filed Vital Signs Vital Sign Reading Time Taken Comments Blood Pressure 131/72 12/05/2024 9:30 PM CDT Pulse 85 12/05/2024 9:30 PM CDT Temperature 37.2 C (99 F) 12/05/2024 7:33 PM CDT Respiratory Rate 18 12/05/2024 9:30 PM CDT Oxygen Saturation 100% 12/05/2024 9:30 PM CDT Inhaled Oxygen Concentration - - Weight 75.8 kg (167 lb 3.2 oz) 12/05/2024 7:33 P M CDT Height 149.9 cm (4' 11 ) 12/05/2024 7:33 PM CDT Body Mass Index 33.77 12/05/2024 7:33 PM CDT Plan of Treatment Health Maintenance [...] Date/Time Associated Diagnosis Comments DIFFERENTIAL, MANUAL Stat 12/05/2024 8:13 PM CDT COMPREHENSIVE METABOLIC PANEL Stat 12/05/2024 8:13 PM CDT CBC WITH DIFFERENTIAL Stat 12/05/2024 8:13 PM CDT DIFFERENTIAL, MANUAL Stat 11/22/2024 8:33 PM CDT LIPASE Stat 11/22/2024 8:33 PM CDT COMPREHENSIVE METABOLIC PANEL Stat 11/22/2024 8:33 PM CDT CBC WITH DIFFERENTIAL Stat 11/22/2024 8:33 PM CDT EKG 12-LEAD Stat 11/22/2024 8:14 PM CDT XR LUMBAR SPINE 2 OR 3 VW Stat 10/24/2024 8:41 PM CDT HEMOGLOBIN A1C Routine 01/20/2015 from Last 3 Months or Most Recently Relevant to Health Maintenance Results * MANUAL DIFFERENTIAL (12/05/2024 8:13 PM CDT) Only the most recent of2 resultswithin the time period is included. PLATELET EST. Consistent w Count 12/05/2024 8:38 PM CDT [facility] RBC MORPHOLOGY Normal 12/05/2024 8:38 PM CDT [facility] Blood BLOOD SPECIMEN / Unknown Collection / Unknown 12/05/2024 8:13 PM CDT 12/05/2024 8:21 PM CDT us Julian Avila MD HEMATOLOGY ORDERABLES COM Final Result [facility] CLIA # [id number] [address] [place] [address] * (ABNORMAL) CBC WITH DIFFERENTIAL (12/05/2024 8:13 PM CDT) Only the most recent of2 resultswithin the time period is included. WBC 4.0 4.0 - 10.0 K/uL 12/05/2024 8:38 PM [facility] RBC 3.03(L) 3.93 - 5.22 M/uL 12/05/2024 8:38 PM [facility] HEMOGLOBIN 8.4(L) 11.2 - 15.7 g/dL 12/05/2024 8:38 PM [facility] HEMATOCRIT 25.2(L) 34.1 - 44.9 % 12/05/2024 8:38 PM [facility] MCV 83.2 79.4 - 94.8 fL 12/05/2024 8:38 PM [facility] MCH 27.7 25.6 - 32.2 pg 12/05/2024 8:38 PM [facility] MCHC 33.3 32.2 - 35.5 g/dL 12/05/2024 8:38 PM [facility] RDW 16.5(H) 11.0 - 14.5 % 12/05/2024 8:38 PM [facility] RDW-STDEV 49.7 36.9 - 56.9 fL 12/05/2024 8:38 PM [facility] PLATELETS 97(L) 163 - 337 K/uL 12/05/2024 8:38 PM [facility] MPV 10.2 10.0 - 14.8 fL 12/05/2024 8:38 PM [facility] NEUTROPHILS 68 34 - 71 % 12/05/2024 8:38 PM [facility] LYMPHOCYTES 21 19 - 52 % 12/05/2024 8:38 PM [facility] MONOCYTES 8 5 - 13 % 12/05/2024 8:38 PM [facility] EOSINOPHILS 2 1 - 6 % 12/05/2024 8:38 PM [facility] BASOPHILS 1 0 - 1 % 12/05/2024 8:38 PM CDT [facility] IMMATURE GRANULOCYTES 1 % 12/05/2024 8:38 PM CDT [facility] NEUTROPHIL ABSOLUTE 2.72 1.56 - 6.13 K/uL 12/05/2024 8:38 PM CDT [facility] LYMPHOCYTE ABSOLUTE 0.83(L) 1.20 - 3.40 K/uL 12/05/2024 8:38 PM CDT [facility] MONOCYTE ABSOLUTE 0.30 0.24 - 0.36 K/uL 12/05/2024 8:38 PM CDT [facility] EOSINOPHIL ABSOLUTE 0.07 0.04 - 0.36 K/uL 12/05/2024 8:38 PM CDT [facility] BASOPHILS ABSOLUTE 0.03 0.01 - 0.08 K/uL 12/05/2024 8:38 PM CDT [facility] IMMATURE GRANULOCYTES ABSOLUTE 0.02 K/uL 12/05/2024 8:38 PM T [facility] Blood BLOOD SPECIMEN / Unknown Collection / Unknown 12/05/2024 8:13 PM CDT 12/05/2024 8:21 PM CDT Julian Avila MD HEMATOLOGY ORDERABLES Final Result [id number] [address] [place] [id number] * (ABNORMAL) COMPREHENSIVE METABOLIC PANEL (12/05/2024 8:13 PM CDT) Only the most recent of2 resultswithin the time period is included. SODIUM 140 136 - 145 mmol/L 12/05/2024 8:56 PM CDT [facility] POTASSIUM 3.4(L) 3.5 - 5.1 mmol/L 12/05/2024 8:56 PM CDT [facility] CHLORIDE 106 98 - 107 mmol/L 12/05/2024 8:56 PM CDT [facility] CO2 24 22 - 29 mmol/L 12/05/2024 8:56 PM [facility] CALCIUM 8.2(L) 8.6 - 10.0 mg/dL 12/05/2024 8:56 PM [facility] BUN 5(L) 6 - 20 mg/dL 12/05/2024 8:56 PM [facility] CREATININE 0.62 0.51 - 0.95 mg/dL 12/05/2024 8:56 PM [facility] GLUCOSE 98 74 - 99 mg/dL 12/05/2024 8:56 PM [facility] TOTAL PROTEIN 5.2(L) 6.6 - 8.7 g/dL 12/05/2024 8:56 PM [facility] ALBUMIN 2.9(L) 3.5 - 5.2 g/dL 12/05/2024 8:56 PM [facility] BILIRUBIN TOTAL 2.4(H) 0.0 - 1.2 mg/dL 12/05/2024 8:56 PM [facility] ALKALINE PHOSPHATASE 135(H) 35 - 104 U/L 12/05/2024 8:56 PM [facility] AST 72(H) 0 - 35 U/L 12/05/2024 8:56 PM [facility] Comment:Hemolysis present. R esult may be falsely elevated. ALT 34 0 - 35 U/L 12/05/2024 8:56 PM [facility] GFR >60 >=60 mL/min/1.7 3 sq meter 12/05/2024 8:56 PM [facility] Comment:eGFR calculated with 2020 CKD-EPI equation. Vegetarian diet, extremely high or low muscle mass, and may affect results. Cystatin C with Glomerular Filtration Rate is a suitable alternative for these patients. ANION GAP 10 5 - 20 mmol/L 12/05/2024 8:56 PM [facility] Blood BLOOD SPECIMEN / Unknown Collection / Unknown 12/05/2024 8:13 PM CDT 12/05/2024 8:21 PM T Julian Avila MD CHEMISTRY ORDERABLES Final Result Performing Organization Address [facility] Co de Phone Number [facility] CLIA # [id number] [address] [place] [address] * (ABNORMAL) LIPASE (11/22/2024 8:33 PM CDT) LIPASE 72(H) 13 - 60 U/L 11/22/2024 8:57 PM CDT [facility] Blood BLOOD SPECIMEN / Unknown Collection / Unknown 11/22/2024 8:33 PM CDT 11/22/2024 8:39 PM CDT Julian Avila MD CHEMISTRY ORDERABLES Final Result Performing Organization Address [facility] Co de Phone Number [facility] CLIA # [id number] [address] [place] [phone] * EKG 12 lead (11/22/2024 8:14 PM [...] any prior imaging is recommended. MACRO: None Radha Castillo DO DIAGNOSTIC IMAGING ORDERABLES Fi nal Result * HEMOGLOBIN A1C (01/20/2015) SHELL RECORD [...] Relevant to Health Maintenance Insurance MEDICAID [place] [facility]
--- OUTSIDE RECORDS SUMMARY | 2025-01-01 17:45 | XMS_ITS | Patient Health Record ---
Author Organization [facility] Address [address] [place] [address] Care Team Providers Care Broomcorn Scraper Name Role Phone Joseph Lewis MD Primary Care Provider Zane Joiner Unavailable [phone] ELROY BOOTHE Unavailable Unavailable Migration, Provider Unavailable Unavailable Reason For Referral Reason eval and treat Diagnosis 1 Radiculopathy, lumba r region (M54.16) Referring Provider First Name Aida Referring Provider Last Name Carlton Referring Provider Speciality Physician Sex Offender Treatment Professional Referred Organization [facility] Referred Provider Tam Fairchild Referred Address [address],[address], Referred Provider Specialty Intervention al Pain Medicine General Notes Mirta Wang 12/01 09:16:03 AM CDT > double check insurance, there is no insurance on the referral, Jennifer Dennison 12/04/2024 09:19:55 AM CDT > atc pt, # says mailbox is full, Jennifer Dennison 12/22/2024 01:36:52 PM CDT > atc pt, # says mailbox is full Referral Priority Routine Medications Medication SIG (Take, Route, Frequency, Duration) [...] drug interaction check* Fluticasone Furoate 27.5mcg/1spray Nasal [place] Use 2 spray(s) in each nostril daily 05/28/2008 Active Immunizations Vaccine Route Administration Date Status Comme nts Influenza (whole), CPT 78187 Inactive Unknown 10/15/2018 Administered Social History Social [...] Severe recurrent major depression without psychotic features (49395572) Major depressive disorder, 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.2) Active confirmed Problem Severe recurrent major depression with psychotic features (73657218) Major depressive disorder, recurrent, 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) Active confirmed Problem Adjustment disorder with mixed disturbance of emotions AND conduct (77559830) Adjustment disorder with mixed disturbance of emotions and conduct (F43.25) Active confirmed Problem Borderline personality disorder (75488507) Borderline personality disorder (F60.3) Active confirmed Problem Lumbar radiculopathy (313078790) Radiculopathy, lumbar region (M54.16) Active confirmed Problem History of psychiatric disorder (614058874) Personal history of other mental and behavioral disorders (Z86.59) Active confirmed Problem Alcohol abuse (77617193) Alcohol abuse (F10.10) Active confirmed Problem Major depression, single episode (62596683) Depression, major (F32.9) Active confirmed Problem Fibromyalgia (573694250) Fibromyalgia (729.1) 05/28/19 09 Problem resolved confirmed [id number] 911- Problem 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 confirmed Problem Low back pain (928058786) Low back pain (724.2) 05/28/19 09 Active confirmed Luke-985 911- Problem Chronic pain (01504594) Chronic pain (G89.29) Active confirmed Problem Polysubstance abuse (248810791) Polysubstance abuse (F19.10) Active confirmed Problem Cannabis abuse (09108217) Cannabis abuse (F12.10) Active confirmed Encounters Encounter Location Date Provider Diagnosis Migrated_Facility 0 0 02/02/2024 Provider Migration Migrated_Facility 0 0 02/03/2024 Provider Migration Plan Of Treatment No Information Insurance Providers Payer Name Payer Address Payer Phone Subscriber Number Group Number Insured Name Patient Relationship to Insured Coverage Start Date Coverage End Date [facility] Commercial [address] [address] [place] [address] [id number] Kay Gamboa Self - patient is the insured [place] Medicaid [address] [place] [address] [id number] Kay Gamboa Self - patient is the insured Medical (General) History Surgical History Surgery Date(Month/Year) Appendectomy Biopsy of Bone Marrow Carpal tunnel surgery Gallbladder surgery Hysterectomy Laminectomy Tonsillectomy
--- OUTSIDE RECORDS SUMMARY | 2025-01-01 17:45 | XMS_ITS | Encounter Summary ---
Author Organization [facility] Address [address] [place] [address] Care Team Providers Care Binding Nicker Name Role Phone Areli Gurrola MD Primary Care Provider Encounter Details Date Type Department Care Team (Latest Contact Info) Description 09/14/2004 Outpatient [facility] [address] [place] [address] Trell York MD [address] [place] [phone] DYSTHYMIC DISORDER (Primary Dx); CERVICALGIA; LUMBAGO Social History Tobacco Use Types Packs/Day Years Used Date Smoking Tobacco: Never Assessed Comments Unknown Sex and Gender Information Value Date Recorded Sex Assigned at Not on file 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
--- OUTSIDE RECORDS SUMMARY | 2025-01-01 17:45 | XMS_ITS | Encounter Summary ---
Author Organization [facility] Address [address] [place] [address] Care Team Providers Care Printed Circuit Boards Plasma Etcher Name Role Phone Areli Gurrola MD Primary Care Provider Encounter Details Date Type Department Care Team (Latest Contact Info) Description 03/14/1999 [facility] [address] [place] [address] Ti Rondon MD [address] [place] [address] Abdominal pain, unspecified site (Primary Dx); Fever and other physiologic disturbances of temperature regulation; Backache, unspecified Social History Tobacco Use Types Packs/Day Years Used Date Smoking Tobacco: Never Assessed Comments Unknown Sex and Gender Information Value Date Recorded Sex Assigned at Not on file 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
--- OUTSIDE RECORDS SUMMARY | 2025-01-01 17:45 | XMS_ITS | Encounter Summary ---
Author Organization [employer] Address [address] [place] [address] Care Team Providers Care Micro Computer Data Processor Name Role Phone Areli Gurrola MD Primary Care Provider Encounter Details Date Type Department Care Team (Latest Contact Info) Description 07/05/1998 Outpatient Historical [facility] Charli Perez MD NO ADDRESS ON FILE Other specified aftercare following surgery (Primary Dx) Social History Tobacco Use Types Packs/Day Years Used Date Smoking Tobacco: Never Assessed Comments Unknown Sex and Gender Information Value Date Recorded Sex Assigned at Not on file 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
--- OUTSIDE RECORDS SUMMARY | 2025-01-01 17:45 | XMS_ITS | Encounter Summary ---
Author Organization [facility] Address [address] [place] [address] Care Team Providers Care Retail Operations Manager Name Role Phone Areli Gurrola MD Primary Care Provider Encounter Details Date Type Department Care Team (Latest Contact Info) Description 10/16/2002 [facility] [place] [address] [place] [address] Gordon Cabral MD NO ADDRESS ON FILE PREOP EXAM OTHER SPECIFIED (Primary Dx); Excessive menstruation Social History Tobacco Use Types Packs/Day Years Used Date Smoking Tobacco: Never Assessed Comments Unknown Sex and Gender Information Value Date Recorded Sex Assigned at Not on file 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
--- OUTSIDE RECORDS SUMMARY | 2025-01-01 17:45 | XMS_ITS | Encounter Summary ---
Author Organization [facility] Address [address] [place] [address] Care Team Providers Care Lap Cutter Name Role Phone Areli Gurrola MD Primary Care Provider Encounter Details Date Type Department Care Team (Latest Contact Info) Description 10/09/2002 Outpatient Historical [facility] [place] [address] [place] [address] Gordon Cabral MD NO ADDRESS ON FILE Excessive menstruation (Primary Dx) Social History Tobacco Use Types Packs/Day Years Used Date Smoking Tobacco: Never Assessed Comments Unknown Sex and Gender Information Value Date Recorded Sex Assigned at Not on file 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
--- OUTSIDE RECORDS SUMMARY | 2025-01-01 17:45 | XMS_ITS | Encounter Summary ---
Author Organization [facility] Address [address] [place] [address] Care Team Providers Care It Application Support Analyst Name Role Phone Areli Gurrola MD Primary Care Provider Encounter Details Date Type Department Care Team (Latest Contact Info) Description 10/11/2005 Outpatient Historical [facility] [address] [place] [address] Trell York MD [address] [place] [phone] Dysthymic Disorder (Primary Dx); Lumbago Social History Tobacco Use Types Packs/Day Years Used Date Smoking Tobacco: Never Assessed Comments Unknown Sex and Gender Information Value Date Recorded Sex Assigned at Not on file 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
--- OUTSIDE RECORDS SUMMARY | 2025-01-01 17:45 | XMS_ITS | Encounter Summary ---
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
--- OUTSIDE RECORDS SUMMARY | 2025-01-01 17:45 | XMS_ITS | Encounter Summary ---
Author Organization 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
--- OUTSIDE RECORDS SUMMARY | 2025-01-01 17:45 | XMS_ITS | Encounter Summary ---
Author Organization [facility] Address [address] [place] [address] Care Team Providers Care Cobbler Apprentice Name Role Phone Areli Gurrola MD Primary Care Provider Encounter Details Date Type Department Care Team (Latest Contact Info) Description 10/14/2002 Outpatient Historical [facility] [address] [place] [address] Trell York MD [address] [place] [phone] ACUTE URI NOS (Primary Dx); COUGH Social History Tobacco Use Types Packs/Day Years Used Date Smoking Tobacco: Never Assessed Comments Unknown Sex and Gender Information Value Date Recorded Sex Assigned at Not on file Legal Sex Female 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
--- OUTSIDE RECORDS SUMMARY | 2025-01-01 17:45 | XMS_ITS | Encounter Summary ---
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
--- OUTSIDE RECORDS SUMMARY | 2025-01-01 17:45 | XMS_ITS | Encounter Summary ---
Author Organization [facility] Address [address] [place] [address] Care Team Providers Care Pipe Stress Engineer Name Role Phone Areli Gurrola MD Primary Care Provider Encounter Details Date Type Department Care Team (Latest Contact Info) Description 07/06/2004 Outpatient Historical [facility] [address] [place] [address] Trell York MD [address] [place] [phone] DYSTHYMIC DISORDER (Primary Dx); BACKACHE NOS; CERVICALGIA Social History Tobacco Use Types Packs/Day Years Used Date Smoking Tobacco: Never Assessed Comments Unknown Sex and Gender Information Value Date Recorded Sex Assigned at Not on file Legal Sex Female 3:40 AM SALES 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
--- OUTSIDE RECORDS SUMMARY | 2025-01-01 17:45 | XMS_ITS | Encounter Summary ---
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
--- OUTSIDE RECORDS SUMMARY | 2025-01-01 17:45 | XMS_ITS | Encounter Summary ---
Author Organization [facility] Address [address] [place] [address] Care Team Providers Care Spring Bender Name Role Phone Areli Gurrola MD Primary Care Provider Encounter Details Date Type Department Care Team (Latest Contact Info) Description 12/18/2002 Outpatient [facility] [id number] [place] [address] Gordon Cabral MD NO ADDRESS ON FILE PREOP EXAM OTHER SPECIFIED (Primary Dx) Social History Tobacco Use Types Packs/Day Years Used Date Smoking Tobacco: Never Assessed Comments Unknown Sex and Gender Information Value Date Recorded Sex Assigned at Not on file Legal Sex Female 3:40 AM BUNGY JUMP MASTER Gender Identity Not on file Sexual Orientation [...] documented as of this encounter Care Teams Spring Bender Relationship Specialty Start Date End Date Areli Gurrola MD [address] [place] [address] PCP - General Specialist 08/12/19 documented as of this encounter
--- OUTSIDE RECORDS SUMMARY | 2025-01-01 17:45 | XMS_ITS | Encounter Summary ---
Author Organization [facility] Address [address] [place] [address] Care Team Providers Care Wet End Supervisor Name Role Phone Areli Gurrola MD Primary Care Provider Encounter Details Date Type Department Care Team (Latest Contact Info) Description 09/12/2005 Outpatient Historical [facility] [address] [place] [address] Trell Maria Jr., MD [address] [place] [address] Anxiety State, Unspecified (Primary Dx) Social History Tobacco Use Types Packs/Day Years Used Date Smoking Tobacco: Never Assessed Comments Unknown Sex and Gender Information Value Date Recorded Sex Assigned at Not on file Legal Sex Female 3:40 AM CARDIOPULMONARY SPECIALIST Gender Identity Not on file Sexual [...] documented as of this encounter Care Teams Wet End Supervisor Relationship Specialty Start Date End Date Areli Gurrola MD [address] [facility] [place] [address] PCP - General Specialist 08/12/19 documented as of this encounter
--- OUTSIDE RECORDS SUMMARY | 2025-01-01 17:45 | XMS_ITS | Encounter Summary ---
Author Organization [facility] Address [address] [place] [address] Care Team Providers Care Manager Summer Name Role Phone Areli Gurrola MD Primary Care Provider Encounter Details Date Type Department Care Team (Late st Contact Info) Description 04/11/1999 Outpatient Historical HIS [facility] Social History Tobacco Use Types Packs/Day Years Used Date Smoking Tobacco: Never Assessed Comments Unknown Sex and Gender Information Value Date Recorded Sex Assigned at Not on file Legal Sex Female 3:40 AM MANAGER USER EXPERIENCE Gender Identity Not on file Sexual Orientation Not on file documented as of this encounter Plan of Treatment Not on file documented as of this encounter Visit Diagnoses Not on filedocumented in this encounter Additional Health Concerns Infection Onset Date Last Indicated Resolved Time R/O COVID-19 01/31/2020 01/31/2020 02/02/2020 10:3 2 AM CDT documented as of this encounter Care Teams Manager Summer Relationship Specialty Start Date End Date Areli Gurrola MD [address] [place] [address] PCP - General Specialist 08/12/19 documented as of this encounter
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
--- OUTSIDE RECORDS SUMMARY | 2025-01-01 17:45 | XMS_ITS | Encounter Summary ---
Author Organization [facility] Address [address] [place] [address] Care Team Providers Care Commercial Drone Pilot Name Role Phone Areli Gurrola MD Primary Care Provider Encounter Details Date Type Department Care Team (Latest Contact Info) Description 07/19/1998 Outpatient Historical [facility] Charli Perez MD NO ADDRESS ON FILE Scar condition and fibrosis of skin (Primary Dx) Social History Tobacco Use Types Packs/Day Years Used Date Smoking Tobacco: Never Assessed Comments Unknown Sex and Gender Information Value Date Recorded Sex Assigned at Not on file Legal Sex Female 3:40 AM FLOATING DERRICK OPERATOR Gender Identity Not on file Sexual [...] as of this encounter Care Teams Commercial Drone Pilot Relationship Specialty Start Date End Date Areli Gurrola MD [address] [place] [address] PCP - General Specialist 08/12/19 documented as of this encounter
--- OUTSIDE RECORDS SUMMARY | 2025-01-01 17:45 | XMS_ITS | Encounter Summary ---
Author Organization [facility] Address [address] [place] [address] Care Team Providers Care Field Marketing Manager Name Role Phone Areli Gurrola MD Primary Care Provider Encounter Details Date Type Department Care Team (Latest Contact Info) Description 12/18/2002 [facility] [place] [address] [place] [address] Gordon Cabral MD NO ADDRESS ON FILE PREOP EXAM OTHER SPECIFIED (Primary Dx); Excessive menstruation; FEMALE GENITAL SYMPTOMS NOS Social History Tobacco Use Types Packs/Day Years Used Date Smoking Tobacco: Never Assessed Comments Unknown Sex and Gender Information Value Date Recorded Sex Assigned at Not on file Legal Sex Female 3:40 AM SIDE TRIMMER Gender Identity Not on file Sexual Orientation [...] documented as of this encounter Care Teams Field Marketing Manager Relationship Specialty Start Date End Date Areli Gurrola MD [address] [place] [address] PCP - General Specialist 08/12/19 documented as of this encounter
--- OUTSIDE RECORDS SUMMARY | 2025-01-01 17:45 | XMS_ITS | Encounter Summary ---
Author Organization [facility] Address [address] [place] [address] Care Team Providers Care Deputy Sheriff K9 Handler Name Role Phone Areli Gurrola MD Primary Care Provider Encounter Details Date Type Department Care Team (Late st Contact Info) Description 05/14/[address] [facility] [place] [address] [place] [address] Roman Law, DO [address] [place] [id number] ACUTE SINUSITIS NOS (Primary Dx) Social History Tobacco Use Types Packs/Day Years Used Date Smoking Tobacco: Never Assessed Comments Unknown Sex and Gender Information Value Date Recorded Sex Assigned at Not on file Legal Sex Female 3:40 AM SLOT TECHNICIAN Gender Identity Not on file Sexual [...] documented as of this encounter Care Teams Deputy Sheriff K9 Handler Relationship Specialty Start Date End Date Areli Gurrola MD [address] [place] [address] PCP - General Specialist 08/12/19 documented as of this encounter
--- OUTSIDE RECORDS SUMMARY | 2025-01-01 17:45 | XMS_ITS | Encounter Summary ---
Author Organization [facility] Address [address] [place] [address] Care Team Providers Care Government Guard Name Role Phone Areli Gurrola MD Primary Care Provider Encounter Details Date Type Department Care Team (Latest Contact Info) Description 07/26/1998 Outpatient Historical [facility] Charli Perez MD NO ADDRESS ON FILE Other specified aftercare following surgery (Primary Dx) Social History Tobacco Use Types Packs/Day Years Used Date Smoking Tobacco: Never Assessed Comments Unknown Sex and Gender Information Value Date Recorded Sex Assigned at Not on file Legal Sex Female 3:40 AM DISHWASHER PREPARER Gender Identity Not on file Sexual Orientation [...] as of this encounter Care Teams Government Guard Relationship Specialty Start Date End Date Areli Gurrola MD [address] [place] [address] PCP - General Specialist 08/12/19 documented as of this encounter
--- OUTSIDE RECORDS SUMMARY | 2025-01-01 17:45 | XMS_ITS | Encounter Summary ---
Author Organization [facility] Address [address] [place] [address] Care Team Providers Care Ehr Trainer Name Role Phone Areli Gurrola MD Primary Care Provider Encounter Details Date Type Department Care Team (Latest Contact Info) Description 04/25/2004 Outpatient Historical [facility] [address] [place] [address] Trell York MD [address] [place] [phone] DYSTHYMIC DISORDER (Primary Dx); LUMBAGO; Pain in limb; Inflamed seborr keratos Social History Tobacco Use Types Packs/Day Years Used Date Smoking Tobacco: Never Assessed Comments Unknown Sex and Gender Information Value Date Recorded Sex Assigned at Not on file Legal Sex Female 3:40 AM DENTAL PRACTITIONER Gender Identity Not on file Sexual Orientation [...] documented as of this encounter Care Teams Ehr Trainer Relationship Specialty Start Date End Date Areli Gurrola MD [address] [facility] [place] [address] PCP - General Specialist 08/12/19 documented as of this encounter
--- OUTSIDE RECORDS SUMMARY | 2025-01-01 17:45 | XMS_ITS | Encounter Summary ---
Author Organization [facility] Address [address] [place] [address] Care Team Providers Care Trawl Net Maker Name Role Phone Areli Gurrola MD Primary Care Provider Encounter Details Date Type Department Care Team (Latest Contact Info) Description 06/22/2003 Outpatient Historical [facility] [address] [place] [address] Trell York MD [address] [place] [phone] CHEST PAIN NOS (Primary Dx); ABN INVOLUN MOVEMENT NEC; CERVICALGIA Social History Tobacco Use Types Packs/Day Years Used Date Smoking Tobacco: Never Assessed Comments Unknown Sex and Gender Information Value Date Recorded Sex Assigned at Not on file Legal Sex Female 3:40 AM MOTOR COACH 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
--- OUTSIDE RECORDS SUMMARY | 2025-01-01 17:45 | XMS_ITS | Encounter Summary ---
Author Organization [facility] Address [address] [place] [address] Care Team Providers Care Librarian Name Role Phone Unavailable Primary Care Provider Unavailabl e Encounter Details Date Type Department Care Team (Late st Contact Info) Description 12/30/2024 External Device Data [facility] ABSTRACTION Provider, Abstract NO ADDRESS ON FILE Social History Tobacco [...] on file Legal Sex Female 6:21 AM MOLD SANDER Gender Identity Not on file Sexual Orientation Not on file documented as of this encounter Plan of Treatment Not on file documented as of this encounter Visit Diagnoses Not on filedocumented in this encounter
--- OUTSIDE RECORDS SUMMARY | 2025-01-01 17:45 | XMS_ITS | Encounter Summary ---
Author Organization [facility] Address [address] [place] [address] Care Team Providers Care Cook Fast Food Name Role Phone Areli Gurrola MD Primary Care Provider Encounter Details Date Type Department Care Team (Latest Contact Info) Description 02/02/1999 Outpatient Historical [facility] [place] [place] [address] Alumno, Gibran Lynn MD [address] [place] [address] Sprain and strain of other specified sites of shoulder and upper arm (Primary Dx); Hx musculoskletl dis NEC Social History Tobacco Use Types Packs/Day Years Used Date Smoking Tobacco: Never Assessed Comments Unknown Sex and Gender Information Value Date Recorded Sex Assigned at Not on file Legal Sex Female 3:40 AM SCALP TREATMENT SPECIALIST Gender Identity Not on file Sexual [...] as of this encounter Care Teams Cook Fast Food Relationship Specialty Start Date End Date Areli Gurrola MD [address] [place] [address] PCP - General Specialist 08/12/19 documented as of this encounter
--- OUTSIDE RECORDS SUMMARY | 2025-01-01 17:45 | XMS_ITS | Encounter Summary ---
Author Organization [facility] Address [address] [place] [address] Care Team Providers Care Diesel Locomotive Firer/Fireman Name Role Phone Areli Gurrola MD Primary [...] on file Legal Sex Female 3:40 AM SHOVELER Gender Identity Not on file Sexual Orientation [...] documented as of this encounter Care Teams Diesel Locomotive Firer/Fireman Relationship Specialty Start Date End Date Areli Gurrola MD [address] [place] [address] PCP - General Specialist 08/12/19 documented as of this encounter
--- OUTSIDE RECORDS SUMMARY | 2025-01-01 17:45 | XMS_ITS | Encounter Summary ---
Author Organization [facility] Address [address] [place] [address] Care Team Providers Care Offline Editor Name Role Phone Areli Gurrola MD Primary Care Provider Encounter Details Date Type Department Care Team (Late st Contact Info) Description 04/07/1999 Outpatient Historical [facility] Social History Tobacco Use Types Packs/Day Years Used Date Smoking Tobacco: Never Assessed Comments Unknown Sex and Gender Information Value Date Recorded Sex Assigned at Not on file Legal Sex Female 3:40 AM LAY HEALTH ADVOCATE Gender Identity Not on file Sexual Orientation Not on file documented as of this encounter Plan of Treatment Not on file documented as of this encounter Visit Diagnoses Not on filedocumented in this encounter Additional Health Concerns Infection Onset Date Last Indicated Resolved Time R/O COVID-19 01/31/2020 01/31/2020 02/02/2020 10:3 2 AM CDT documented as of this encounter Care Teams Offline Editor Relationship Specialty Start Date End Date Areli Gurrola MD [address] [place] [address] PCP - General Specialist 08/12/19 documented as of this encounter
--- OUTSIDE RECORDS SUMMARY | 2025-01-01 17:45 | XMS_ITS | Encounter Summary ---
Author Organization [facility] Address [address] [place] [address] Care Team Providers Care Boat Painter Name Role Phone Areli Gurrola MD Primary Care Provider Encounter Details Date Type Department Care Team (Latest Contact Info) Description 10/09/2002 Outpatient Historical [facility] [place] [address] [place] [address] Gordon Cabral MD NO ADDRESS ON FILE Excessive menstruation (Primary Dx) Social History Tobacco Use Types Packs/Day Years Used Date Smoking Tobacco: Never Assessed Comments Unknown Sex and Gender Information Value Date Recorded Sex Assigned at Not on file Legal Sex Female 3:40 AM GREY WASHER Gender Identity Not on file Sexual [...] documented as of this encounter Care Teams Boat Painter Relationship Specialty Start Date End Date Areli Gurrola MD [address] [place] [address] PCP - General Specialist 08/12/19 documented as of this encounter
--- OUTSIDE RECORDS SUMMARY | 2025-01-01 17:45 | XMS_ITS | Encounter Summary ---
Author Organization [facility] Address [address] [place] [address] Care Team Providers Care Showroom Manager Name Role Phone Areli Gurrola MD Primary Care Provider Encounter Details Date Type Department Care Team (Latest Contact Info) Description 10/20/2002 Outpatient Historical [facility] [place] [address] [place] [address] Gordon Cabral MD NO ADDRESS ON FILE PREOP EXAM OTHER SPECIFIED (Primary Dx) Social History Tobacco Use Types Packs/Day Years Used Date Smoking Tobacco: Never Assessed Comments Unknown Sex and Gender Information Value Date Recorded Sex Assigned at Not on file Legal Sex Female 3:40 AM FORGING MACHINE HAND Gender Identity Not on file Sexual [...] documented as of this encounter Care Teams Showroom Manager Relationship Specialty Start Date End Date Areli Gurrola MD [address] [place] [address] PCP - General Specialist 08/12/19 documented as of this encounter
--- OUTSIDE RECORDS SUMMARY | 2025-01-01 17:45 | XMS_ITS | Encounter Summary ---
Author Organization [facility] Address [address] [place] [address] Care Team Providers Care Prepared Foods Service Team Member Name Role Phone Areli Gurrola MD Primary Care Provider Encounter Details Date Type Department Care Team (Latest Contact Info) Description 03/09/1999 Outpatient [facility] [address] [place] [address] Alumno, Gibran Lynn MD [address] [place] [address] Sprain and strain of unspecified site of shoulder and upper arm (Primary Dx); Backache, unspecified Social History Tobacco Use Types Packs/Day Years Used Date Smoking Tobacco: Never Assessed Comments Unknown Sex and Gender Information Value Date Recorded Sex Assigned at Not on file Legal Sex Female 3:40 AM GRASS CUTTER Gender Identity Not on file Sexual [...] documented as of this encounter Care Teams Prepared Foods Service Team Member Relationship Specialty Start Date End Date Areli Gurrola MD [address] [place] [place] [address] PCP - General Specialist 08/12/19 documented as of this encounter
--- OUTSIDE RECORDS SUMMARY | 2025-01-01 17:45 | XMS_ITS | Encounter Summary ---
Author Organization [facility] Address [address] [place] [address] Care Team Providers Care Chief Embalmer Name Role Phone Areli Gurrola MD Primary Care Provider Encounter Details Date Type Department Care Team (Late st Contact Info) Description 04/05/1999 Outpatient Historical HIS [facility] Social History Tobacco Use Types Packs/Day Years Used Date Smoking Tobacco: Never Assessed Comments Unknown Sex and Gender Information Value Date Recorded Sex Assigned at Not on file Legal Sex Female 3:40 AM WOOLEN SUITING SHRINKER Gender Identity Not on file Sexual Orientation Not on file documented as of this encounter Plan of Treatment Not on file documented as of this encounter Visit Diagnoses Not on filedocumented in this encounter Additional Health Concerns Infection Onset Date Last Indicated Resolved Time R/O COVID-19 01/31/2020 01/31/2020 02/02/2020 10:3 2 AM CDT documented as of this encounter Care Teams Chief Embalmer Relationship Specialty Start Date End Date Areli Gurrola MD [address] [place] [address] PCP - General Specialist 08/12/19 documented as of this encounter
--- OUTSIDE RECORDS SUMMARY | 2025-01-01 17:45 | XMS_ITS | Encounter Summary ---
Author Organization [facility] Address [address] [place] [address] Care Team Providers Care Eyewear Consultant Name Role Phone Areli Gurrola MD Primary Care Provider Encounter Details Date Type Department Care Team (Latest Contact Info) Description 06/26/2003 Outpatient Historical [facility] Cardiology [facility] [address] [place] [address] Jim Matos MD [address] [address] [place] [address] PRECORDIAL PAIN (Primary Dx) Social History Tobacco Use Types Packs/Day Years Used Date Smoking Tobacco: Never Assessed Comments Unknown Sex and Gender Information Value Date Recorded Sex Assigned at Not on file Legal Sex Female 3:40 AM ASSURANCE SPECIALIST Gender Identity Not on file Sexual Orientation Not on file documented as of this encounter Plan of Treatment Not on file documented as of this encounter Visit Diagnoses Diagnosis Precordial pain- Primary documented in this encounter Additional Health Concerns Infection Onset Date Last Indicated Resolved Time R/O COVID-19 01/31/2020 01/31/2020 02/02/2020 10:3 2 AM CDT documented as of this encounter Care Teams Eyewear Consultant Relationship Specialty Start Date End Date Areli Gurrola MD [address] [facility] [place] [address] PCP - General Specialist 08/12/19 documented as of this encounter
--- OUTSIDE RECORDS SUMMARY | 2025-01-01 17:45 | XMS_ITS | Encounter Summary ---
Author Organization [facility] Address [address] [place] [address] Care Team Providers Care Router Machine Operator Name Role Phone Areli Gurrola MD Primary Care Provider Encounter Details Date Type Department Care Team (Late st Contact Info) Description 03/31/1999 Outpatient Historical HIS [facility] Social History Tobacco Use Types Packs/Day Years Used Date Smoking Tobacco: Never Assessed Comments Unknown Sex and Gender Information Value Date Recorded Sex Assigned at Not on file Legal Sex Female 3:40 AM DRUM HANDLER Gender Identity Not on file Sexual Orientation Not on file documented as of this encounter Plan of Treatment Not on file documented as of this encounter Visit Diagnoses Not on filedocumented in this encounter Additional Health Concerns Infection Onset Date Last Indicated Resolved Time R/O COVID-19 01/31/2020 01/31/2020 02/02/2020 10:3 2 AM CDT documented as of this encounter Care Teams Router Machine Operator Relationship Specialty Start Date End Date Areli Gurrola MD [address] [place] [address] PCP - General Specialist 08/12/19 documented as of this encounter
--- OUTSIDE RECORDS SUMMARY | 2025-01-01 17:45 | XMS_ITS | Encounter Summary ---
Author Organization [facility] Address [address] [place] [address] Care Team Providers Care Lipcoat Sprayer Name Role Phone Areli Gurrola MD Primary Care Provider Encounter Details Date Type Department Care Team (Latest Contact Info) Description 09/09/2003 Outpatient Historical [facility] [address] [place] [address] Trell York MD [address] [place] [phone] CERVICALGIA (Primary Dx) Social History Tobacco Use Types Packs/Day Years Used Date Smoking Tobacco: Never Assessed Comments Unknown Sex and Gender Information Value Date Recorded Sex Assigned at Not on file Legal Sex Female 3:40 AM APPLICATION DEVELOPMENT CONSULTANT Gender Identity Not on file Sexual Orientation Not on file documented as of this encounter Plan of Treatment Not on file documented as of this encounter Visit Diagnoses Diagnosis Cervicalgia- Primary documented in this encounter Additional Health Concerns Infection Onset Date Last Indicated Resolved Time R/O COVID-19 01/31/2020 01/31/2020 02/02/2020 10:3 2 AM CDT documented as of this encounter Care Teams Lipcoat Sprayer Relationship Specialty Start Date End Date Areli Gurrola MD [address] [facility] [place] [address] PCP - General Specialist 08/12/19 documented as of this encounter
--- OUTSIDE RECORDS SUMMARY | 2025-01-01 17:45 | XMS_ITS | Encounter Summary ---
Author Organization [facility] Address [address] [place] [address] Care Team Providers Care Liquified Natural Gas Specialist Name Role Phone Areli Gurrola MD Primary Care Provider Encounter Details Date Type Department Care Team (Late st Contact Info) Description 07/07/2004 Outpatient Historical [facility] Imaging Services [facility] [address] [place] [address] Social History Tobacco Use Types Packs/Day Years Used Date Smoking Tobacco: Never Assessed Comments Unknown Sex and Gender Information Value Date Recorded Sex Assigned at Not on file Legal Sex Female 3:40 AM WEB SUPPORT ENGINEER Gender Identity Not on file Sexual Orientation Not on file documented as of this encounter Plan of Treatment Not on file documented as of this encounter Visit Diagnoses Not on filedocumented in this encounter Additional Health Concerns Infection Onset Date Last Indicated Resolved Time R/O COVID-19 01/31/2020 01/31/2020 02/02/2020 10:3 2 AM CDT documented as of this encounter Care Teams Liquified Natural Gas Specialist Relationship Specialty Start Date End Date Areli Gurrola MD [address] [place] [address] PCP - General Specialist 08/12/19 documented as of this encounter
--- OUTSIDE RECORDS SUMMARY | 2025-01-01 17:45 | XMS_ITS | Encounter Summary ---
Author Organization [facility] Address [address] Attn: [place] [address] Care Team Providers Care Boiler Plant Worker Name Role Phone Areli Gurrola MD Primary Care Provider Encounter Details Date Type Department Care Team (Late st Contact Info) Description 03/12/1999 Outpatient Historical [place], Gibran Lynn MD [address] [facility] [address] [place] [phone] Social History Tobacco Use Types Packs/Day Years Used Date Smoking Tobacco: Never Assessed Comments Unknown Sex and Gender Information Value Date Recorded Sex Assigned at Not on file Legal Sex Female 3:40 AM INTERNATIONAL LOGISTICS COORDINATOR Gender Identity Not on file Sexual Orientation Not on file documented as of this encounter Plan of Treatment Not on file documented as of this encounter Visit Diagnoses Not on filedocumented in this encounter Additional Health Concerns Infection Onset Date Last Indicated Resolved Time R/O COVID-19 01/31/2020 01/31/2020 02/02/2020 10:3 2 AM CDT documented as of this encounter Care Teams Boiler Plant Worker Relationship Specialty Start Date End Date Areli Gurrola MD [address] [facility] [place] [address] PCP - General Specialist 08/12/19 documented as of this encounter
--- OUTSIDE RECORDS SUMMARY | 2025-01-01 17:45 | XMS_ITS | Encounter Summary ---
Author Organization [facility] Address [address] [place] [address] Care Team Providers Care Rehab Liaison Name Role Phone Areli Gurrola MD Primary Care Provider Encounter Details Date Type Department Care Team (Latest Contact Info) Description 01/11/[address] [facility] [address] [place] [address] Trell York MD [address] [place] [phone] CERVICALGIA (Primary Dx); DYSTHYMIC DISORDER Social History Tobacco Use Types Packs/Day Years Used Date Smoking Tobacco: Never Assessed Comments Unknown Sex and Gender Information Value Date Recorded Sex Assigned at Not on file Legal Sex Female 3:40 AM ART EDUCATION PROFESSOR Gender Identity Not on file Sexual Orientation Not on file documented as of this encounter Plan of Treatment Not on file documented as of this encounter Visit Diagnoses Diagnosis Cervicalgia- Primary Dysthymic disorder documented in this encounter Additional Health Concerns Infection Onset Date Last Indicated Resolved Time R/O COVID-19 01/31/2020 01/31/2020 02/02/2020 10:3 2 AM CDT documented as of this encounter Care Teams Rehab Liaison Relationship Specialty Start Date End Date Areli Gurrola MD [address] [place] [phone] PCP - General Specialist 08/12/19 documented as of this encounter
--- OUTSIDE RECORDS SUMMARY | 2025-01-01 17:45 | XMS_ITS | Encounter Summary ---
Author Organization [facility] Address [address] [place] [address] Care Team Providers Care Proposal Lead Writer Name Role Phone Areli Gurrola MD Primary Care Provider Encounter Details Date Type Department Care Team (Latest Contact Info) Description 02/05/2003 Outpatient Historical [facility] [place] [address] [place] [address] Gordon Cabral MD NO ADDRESS ON FILE SURGERY FOLLOWUP, UNSPEC (Primary Dx) Social History Tobacco Use Types Packs/Day Years Used Date Smoking Tobacco: Never Assessed Comments Unknown Sex and Gender Information Value Date Recorded Sex Assigned at Not on file Legal Sex Female 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 BUSINESS MANAGER Gender Identity Not on file [...] documented as of this encounter Care Teams Proposal Lead Writer Relationship Specialty Start Date End Date Areli Gurrola MD [address] [facility] [place] [address] PCP - General Specialist 08/12/19 documented as of this encounter
--- OUTSIDE RECORDS SUMMARY | 2025-01-01 17:45 | XMS_ITS | Encounter Summary ---
Author Organization [facility] Address [address] [place] [address] Care Team Providers Care Installer Molding And Trim Name Role Phone Areli Gurrola MD Primary Care Provider Encounter Details Date Type Department Care Team (Latest Contact Info) Description 06/04/1998 Outpatient Historical HIS [facility] Charli Perez MD NO ADDRESS ON FILE Open wound of forehead (Primary Dx) Social History Tobacco Use Types Packs/Day Years Used Date Smoking Tobacco: Never Assessed Comments Unknown Sex and Gender Information Value Date Recorded Sex Assigned at Not on file Legal Sex Female 3:40 AM RN SUPPLEMENTAL Gender Identity Not on file Sexual Orientation [...] documented as of this encounter Care Teams Installer Molding And Trim Relationship Specialty Start Date End Date Areli Gurrola MD [address] [place] [address] PCP - General Specialist 08/12/19 documented as of this encounter
--- OUTSIDE RECORDS SUMMARY | 2025-01-01 17:45 | XMS_ITS | Encounter Summary ---
Author Organization [facility] Address [address] [place] [address] Care Team Providers Care Wildlife Conservation Officer Name Role Phone Areli Gurrola MD Primary Care Provider Encounter Details Date Type Department Care Team (Late st Contact Info) Description 04/14/1999 Outpatient Historical HIS [facility] Social History Tobacco Use Types Packs/Day Years Used Date Smoking Tobacco: Never Assessed Comments Unknown Sex and Gender Information Value Date Recorded Sex Assigned at Not on file Legal Sex Female 3:40 AM STICK PULLER Gender Identity Not on file Sexual Orientation Not on file documented as of this encounter Plan of Treatment Not on file documented as of this encounter Visit Diagnoses Not on filedocumented in this encounter Additional Health Concerns Infection Onset Date Last Indicated Resolved Time R/O COVID-19 01/31/2020 01/31/2020 02/02/2020 10:3 2 AM CDT documented as of this encounter Care Teams Wildlife Conservation Officer Relationship Specialty Start Date End Date Areli Gurrola MD [address] [place] [address] PCP - General Specialist 08/12/19 documented as of this encounter
--- OUTSIDE RECORDS SUMMARY | 2025-01-01 17:45 | XMS_ITS | Encounter Summary ---
Author Organization [facility] Address [address] [place] [address] Care Team Providers Care Men'S Basketball Coach Name Role Phone Areli Gurrola MD Primary Care Provider Encounter Details Date Type Department Care Team (Latest Contact Info) Description 05/03/1999 Outpatient Historical [facility] [place] [address] [place] [address] [place], Gibran Lynn MD [address] [place] [address] Cramp of limb (Primary Dx); Contracture of hand joint Social History Tobacco Use Types Packs/Day Years Used Date Smoking Tobacco: Never Assessed Comments Unknown Sex and Gender Information Value Date Recorded Sex Assigned at Not on file Legal Sex Female 3:40 AM ACCOUNT EXECUTIVE METALWORKING Gender Identity Not on file Sexual Orientation [...] documented as of this encounter Care Teams Men'S Basketball Coach Relationship Specialty Start Date End Date Areli Gurrola MD [address] [place] [address] PCP - General Specialist 08/12/19 documented as of this encounter
--- OUTSIDE RECORDS SUMMARY | 2025-01-01 17:45 | XMS_ITS | Encounter Summary ---
Author Organization [facility] Address [address] [place] [address] Care Team Providers Care Supervisor Specialty Plant Name Role Phone Areli Gurrola MD Primary Care Provider Encounter Details Date Type Department Care Team (Latest Contact Info) Description 10/28/2002 Outpatient [facility] [place] [address] [place] [address] Gordon Cabral MD NO ADDRESS ON FILE SURGERY FOLLOWUP, UNSPEC (Primary Dx) Social History Tobacco Use Types Packs/Day Years Used Date Smoking Tobacco: Never Assessed Comments Unknown Sex and Gender Information Value Date Recorded Sex Assigned at Not on file Legal Sex Female 3:40 AM SORTER LUMBER STRAIGHTENER Gender Identity Not on file Sexual Orientation [...] as of this encounter Care Teams Supervisor Specialty Plant Relationship Specialty Start Date End Date Areli Gurrola MD [address] [facility] [place] [address] PCP - General Specialist 08/12/19 documented as of this encounter
--- OUTSIDE RECORDS SUMMARY | 2025-01-01 17:45 | XMS_ITS | Encounter Summary ---
Author Organization [facility] Address [address] [place] [address] Care Team Providers Care Concentrator Operator Name Role Phone Areli Gurrola MD Primary Care Provider Encounter Details Date Type Department Care Team (Latest Contact Info) Description 05/11/2003 Outpatient Historical [facility] [address] [place] [address] Trell York MD [address] [place] [phone] CERVICALGIA (Primary Dx) Social History Tobacco Use Types Packs/Day Years Used Date Smoking Tobacco: Never Assessed Comments Unknown Sex and Gender Information Value Date Recorded Sex Assigned at Not on file Legal Sex Female 3:40 AM PHYSICIAN PRACTICE MARKET MANAGER Gender Identity Not on file Sexual Orientation Not on file documented as of this encounter Plan of Treatment Not on file documented as of this encounter Visit Diagnoses Diagnosis Cervicalgia- Primary documented in this encounter Additional Health Concerns Infection Onset Date Last Indicated Resolved Time R/O COVID-19 01/31/2020 01/31/2020 02/02/2020 10:3 2 AM CDT documented as of this encounter Care Teams Concentrator Operator Relationship Specialty Start Date End Date Areli Gurrola MD [address] [facility] [address] PCP - General Specialist 08/12/19 documented as of this encounter
--- OUTSIDE RECORDS SUMMARY | 2025-01-01 17:45 | XMS_ITS | Encounter Summary ---
Author Organization [facility] Address [address] [place] [address] Care Team Providers Care Medical Asst Name Role Phone Areli Gurrola MD Primary Care Provider Encounter Details Date Type Department Care Team (Latest Contact Info) Description 02/14/1999 Outpatient Historical [facility] Imaging Services-[facility] [place] [address] [place] [address] AlumnoGibran MD [address] [place] [address] Lumbago (Primary Dx) Social History Tobacco Use Types Packs/Day Years Used Date Smoking Tobacco: Never Assessed Comments Unknown Sex and Gender Information Value Date Recorded Sex Assigned at Not on file Legal Sex Female 3:40 AM SEX OFFENDER TREATMENT PROFESSIONAL Gender Identity Not on file Sexual Orientation Not on file documented as of this encounter Plan of Treatment Not on file documented as of this encounter Visit Diagnoses Diagnosis Lumbago- Primary documented in this encounter Additional Health Concerns Infection Onset Date Last Indicated Resolved Time R/O COVID-19 01/31/2020 01/31/2020 02/02/2020 10:3 2 AM CDT documented as of this encounter Care Teams Medical Asst Relationship Specialty Start Date End Date Areli Gurrola MD [address] [place] [address] PCP - General Specialist 08/12/19 documented as of this encounter
--- OUTSIDE RECORDS SUMMARY | 2025-01-01 17:45 | XMS_ITS | Encounter Summary ---
Author Organization [facility] Address [address] [place] [address] Care Team Providers Care Diesel Engine Erector Name Role Phone Areli Gurrola MD Primary Care Provider Encounter Details Date Type Department Care Team (Late st Contact Info) Description 03/31/1999 Outpatient Historical [facility] Social History Tobacco Use Types Packs/Day Years Used Date Smoking Tobacco: Never Assessed Comments Unknown Sex and Gender Information Value Date Recorded Sex Assigned at Not on file Legal Sex Female 3:40 AM CODE MACHINE OPERATOR Gender Identity Not on file Sexual Orientation Not on file documented as of this encounter Plan of Treatment Not on file documented as of this encounter Visit Diagnoses Not on filedocumented in this encounter Additional Health Concerns Infection Onset Date Last Indicated Resolved Time R/O COVID-19 01/31/2020 01/31/2020 02/02/2020 10:3 2 AM CDT documented as of this encounter Care Teams Diesel Engine Erector Relationship Specialty Start Date End Date Areli Gurrola MD [address] [place] [address] PCP - General Specialist 08/12/19 documented as of this encounter
--- OUTSIDE RECORDS SUMMARY | 2025-01-01 17:45 | XMS_ITS | Encounter Summary ---
Author Organization [facility] Address [address] [place] [address] Care Team Providers Care Supervisor Cured Meats Name Role Phone Areli Gurrola MD Primary Care Provider Encounter Details Date Type Department Care Team (Latest Contact Info) Description 02/20/2005 Outpatient Historical [facility] [address] [place] [address] Trell York MD [address] [place] [phone] LUMBAGO (Primary Dx); DYSTHYMIC DISORDER; ANXIETY STATE NOS; CERVICALGIA Social History Tobacco Use Types Packs/Day Years Used Date Smoking Tobacco: Never Assessed Comments Unknown Sex and Gender Information Value Date Recorded Sex Assigned at Not on file Legal Sex Female 3:40 AM ENVIRONMENTAL QUALITY ANALYST Gender Identity Not on file Sexual [...] as of this encounter Care Teams Supervisor Cured Meats Relationship Specialty Start Date End Date Areli Gurrola MD [address] [place] [address] PCP - General Specialist 08/12/19 documented as of this encounter
--- OUTSIDE RECORDS SUMMARY | 2025-01-01 17:46 | XMS_ITS | Encounter Summary ---
Author Organization [facility] Address [address] [place] [address] Care Team Providers Care Fuel Yard Operator Name Role Phone Areli Gurrola MD Primary Care Provider Encounter Details Date Type Department Care Team (Latest Contact Info) Description 08/25/2002 Outpatient Historical [facility] [address] [place] [address] Trell York MD [address] [place] [phone] INSOMNIA NEC (Primary Dx); OTHER MALAISE AND FATIGUE; NEUROTIC DEPRESSION; CERVICALGIA Social History Tobacco Use Types Packs/Day Years Used Date Smoking Tobacco: Never Assessed Comments Unknown Sex and Gender Information Value Date Recorded Sex Assigned at Not on file Legal Sex Female 3:40 AM RETORT FIREMAN Gender Identity Not on file Sexual Orientation [...] documented as of this encounter Care Teams Fuel Yard Operator Relationship Specialty Start Date End Date Areli Gurrola MD [address] [facility] [place] [address] PCP - General Specialist 08/12/19 documented as of this encounter
--- OUTSIDE RECORDS SUMMARY | 2025-01-01 17:46 | XMS_ITS | Encounter Summary ---
Author Organization [facility] Address [address] [place] [address] Care Team Providers Care Digital Engineer Name Role Phone Areli Gurrola MD Primary Care Provider Encounter Details Date Type Department Care Team (Latest Contact Info) Description 03/26/2002 Outpatient Historical [facility] [address] [place] [address] Trell York MD [address] [place] [phone] CERVICALGIA (Primary Dx); ABDOMINAL PAIN UNSPEC SITE Social History Tobacco Use Types Packs/Day Years Used Date Smoking Tobacco: Never Assessed Comments Unknown Sex and Gender Information Value Date Recorded Sex Assigned at Not on file Legal Sex Female 3:40 AM ADVERTISING DISPATCH CLERK Gender Identity Not on file Sexual [...] documented as of this encounter Care Teams Digital Engineer Relationship Specialty Start Date End Date Areli Gurrola MD [address] [facility] [place] [address] PCP - General Specialist 08/12/19 documented as of this encounter
--- OUTSIDE RECORDS SUMMARY | 2025-01-01 17:46 | XMS_ITS | Encounter Summary ---
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
--- OUTSIDE RECORDS SUMMARY | 2025-01-01 17:46 | XMS_ITS | Encounter Summary ---
Author Organization [facility] Address [address] [facility] Attn: [place] [address] Care Team Providers Care Vegetable Farmer Name Role Phone Areli Gurrola MD Primary Care Provider Encounter Details Date Type Department Care Team (Late st Contact Info) Description 07/30/2001 Outpatient Historical [place], Trell Pascual MD [address] [place] [phone] Social History Tobacco Use Types Packs/Day Years Used Date Smoking Tobacco: Never Assessed Comments Unknown Sex and Gender Information Value Date Recorded Sex Assigned at Not on file Legal Sex Female 3:40 AM BOILER FITTER Gender Identity Not on file Sexual Orientation Not on file documented as of this encounter Plan of Treatment Not on file documented as of this encounter Visit Diagnoses Not on filedocumented in this encounter Additional Health Concerns Infection Onset Date Last Indicated Resolved Time R/O COVID-19 01/31/2020 01/31/2020 02/02/2020 10:3 2 AM CDT documented as of this encounter Care Teams Vegetable Farmer Relationship Specialty Start Date End Date Areli Gurrola MD [address] [place] [phone] PCP - General Specialist 08/12/19 documented as of this encounter
--- OUTSIDE RECORDS SUMMARY | 2025-01-01 17:46 | XMS_ITS | Encounter Summary ---
Author Organization [facility] Address [address] [place] [address] Care Team Providers Care Transitional Care Nurse Name Role Phone Areli Gurrola MD Primary Care Provider Encounter Details Date Type Department Care Team (Latest Contact Info) Description 10/21/2001 Outpatient Historical [facility] [address] [place] [address] Trell York MD [address] [place] [phone] NEUROTIC DEPRESSION (Primary Dx); LUMBAGO; ACUTE LARYNGOTRACH W OBSTR Social History Tobacco Use Types Packs/Day Years Used Date Smoking Tobacco: Never Assessed Comments Unknown Sex and Gender Information Value Date Recorded Sex Assigned at Not on file Legal Sex Female 3:40 AM EXHIBIT CLEANER Gender Identity Not on file Sexual [...] documented as of this encounter Care Teams Transitional Care Nurse Relationship Specialty Start Date End Date Areli Gurrola MD [address] [place] [address] PCP - General Specialist 08/12/19 documented as of this encounter
--- OUTSIDE RECORDS SUMMARY | 2025-01-01 17:46 | XMS_ITS | Encounter Summary ---
Author Organization [facility] Address [address] [place] [address] Care Team Providers Care Product Scientist Name Role Phone Areli Gurrola MD Primary Care Provider Encounter Details Date Type Department Care Team (Latest Contact Info) Description 04/10/2002 Outpatient Historical [facility] [place] [address] [facility] [address] [place] [address] Gildardo Ace MD [address] [place] [phone] ABDOMINAL PAIN EPIGASTRIC (Primary Dx) Social History Tobacco Use Types Packs/Day Years Used Date Smoking Tobacco: Never Assessed Comments Unknown Sex and Gender Information Value Date Recorded Sex Assigned at Not on file Legal Sex Female 3:40 AM LEAN LEADER Gender Identity Not on file Sexual Orientation Not on file documented as of this encounter Plan of Treatment Not on file documented as of this encounter Visit Diagnoses Diagnosis Abdominal pain, epigastric- Primary documented in this encounter Additional Health Concerns Infection Onset Date Last Indicated Resolved Time R/O COVID-19 01/31/2020 01/31/2020 02/02/2020 10:3 2 AM CDT documented as of this encounter Care Teams Product Scientist Relationship Specialty Start Date End Date Areli Gurrola MD [address] [facility] [place] [address] PCP - General Specialist 08/12/19 documented as of this encounter
--- OUTSIDE RECORDS SUMMARY | 2025-01-01 17:46 | XMS_ITS | Encounter Summary ---
Author Organization [facility] Address [address] [place] [address] Care Team Providers Care Marine Engine Machinist Apprentice Name Role Phone Areli Gurrola MD Primary Care Provider Encounter Details Date Type Department Care Team (Latest Contact Info) Description 03/20/2002 Outpatient Historical [facility] [address] [place] [address] Trell York MD [address] [place] [phone] ESOPHAGITIS, UNSPECIFIED (Primary Dx); CERVICALGIA; UNSPEC CONSTIPATION Social History Tobacco Use Types Packs/Day Years Used Date Smoking Tobacco: Never Assessed Comments Unknown Sex and Gender Information Value Date Recorded Sex Assigned at Not on file Legal Sex Female 3:40 AM SUBSTANCE ABUSE RN Gender Identity Not on file Sexual [...] as of this encounter Care Teams Marine Engine Machinist Apprentice Relationship Specialty Start Date End Date Areli Gurrola MD [address] [facility] [place] [address] PCP - General Specialist 08/12/19 documented as of this encounter
--- OUTSIDE RECORDS SUMMARY | 2025-01-01 17:46 | XMS_ITS | Encounter Summary ---
Author Organization [facility] Address [address] [place] [address] Care Team Providers Care Health Care Liaison Name Role Phone Areli Gurrola MD Primary Care Provider Encounter Details Date Type Department Care Team (Latest Contact Info) Description 10/01/2002 Outpatient Historical [facility] [address] [place] [address] Trell York MD [address] [place] [phone] ACUTE SINUSITIS NOS (Primary Dx) Social History Tobacco Use Types Packs/Day Years Used Date Smoking Tobacco: Never Assessed Comments Unknown Sex and Gender Information Value Date Recorded Sex Assigned at Not on file Legal Sex Female 3:40 AM SLOT MACHINE MECHANIC Gender Identity Not on file Sexual [...] as of this encounter Care Teams Health Care Liaison Relationship Specialty Start Date End Date Areli Gurrola MD [address] [facility] [place] [place] [address] PCP - General Specialist 08/12/19 documented as of this encounter
--- OUTSIDE RECORDS SUMMARY | 2025-01-01 17:46 | XMS_ITS | Encounter Summary ---
Author Organization [facility] Address [address] [place] [address] Care Team Providers Care Blockers Skiver Name Role Phone Areli Gurrola MD Primary Care Provider Encounter Details Date Type Department Care Team (Late st Contact Info) Description 06/27/2001 Outpatient Historical [facility] Gen Spec Surg [address] [address] Renan Martinez MD [address] [place] [address] CHOLELITHIASIS NOS (Primary Dx); SURGERY FOLLOWUP, UNSPEC Social History Tobacco Use Types Packs/Day Years Used Date Smoking Tobacco: Never Assessed Comments Unknown Sex and Gender Information Value Date Recorded Sex Assigned at Not on file Legal Sex Female 3:40 AM PRODUCT ADVISOR Gender Identity Not on file Sexual Orientation [...] documented as of this encounter Care Teams Blockers Skiver Relationship Specialty Start Date End Date Areli Gurrola MD [address] [facility] [place] [address] PCP - General Specialist 08/12/19 documented as of this encounter
--- OUTSIDE RECORDS SUMMARY | 2025-01-01 17:46 | XMS_ITS | Encounter Summary ---
Author Organization [facility] Address [address] [place] [address] Care Team Providers Care Hand Outside Cutter Name Role Phone Areli Gurrola MD Primary Care Provider Encounter Details Date Type Department Care Team (Latest Contact Info) Description 01/09/2002 Outpatient Historical [facility] [address] [place] [address] Trell York MD [address] [place] [phone] HEADACHE (Primary Dx); CERVICALGIA Social History Tobacco Use Types Packs/Day Years Used Date Smoking Tobacco: Never Assessed Comments Unknown Sex and Gender Information Value Date Recorded Sex Assigned at Not on file Legal Sex Female 3:40 AM OUTSIDE PLANT CABLE ENGINEER Gender Identity Not on file Sexual [...] as of this encounter Care Teams Hand Outside Cutter Relationship Specialty Start Date End Date Areli Gurrola MD [address] [place] [address] PCP - General Specialist 08/12/19 documented as of this encounter
--- OUTSIDE RECORDS SUMMARY | 2025-01-01 17:46 | XMS_ITS | Encounter Summary ---
Author Organization [facility] Address [address] [place] [address] Care Team Providers Care Non Licensed Nuclear Plant Operator Name Role Phone Areli Gurrola MD Primary Care Provider Encounter Details Date Type Department Care Team (Latest Contact Info) Description 07/16/2001 Outpatient Historical [facility] [address] [place] [address] Trell York MD [address] [place] [phone] SWELLING OF LIMB (Primary Dx) Social History Tobacco Use Types Packs/Day Years Used Date Smoking Tobacco: Never Assessed Comments Unknown Sex and Gender Information Value Date Recorded Sex Assigned at Not on file Legal Sex Female 3:40 AM TELEPHONE APPOINTMENT CLERK Gender Identity Not on file Sexual [...] documented as of this encounter Care Teams Non Licensed Nuclear Plant Operator Relationship Specialty Start Date End Date Areli Gurrola MD [address] [facility] [place] [address] PCP - General Specialist 08/12/19 documented as of this encounter
--- OUTSIDE RECORDS SUMMARY | 2025-01-01 17:46 | XMS_ITS | Encounter Summary ---
Author Organization [facility] Address [address] [place] [address] Care Team Providers Care Catalog Librarian Name Role Phone Areli Gurrola MD Primary Care Provider Encounter Details Date Type Department Care Team (Late st Contact Info) Description 10/30/2002 Emergency [facility] [address] [place] [address] Tomás Jade MD NO ADDRESS ON FILE FEMALE GENITAL SYMPTOMS NOS (Primary Dx) Social History Tobacco Use Types Packs/Day Years Used Date Smoking Tobacco: Never Assessed Comments Unknown Sex and Gender Information Value Date Recorded Sex Assigned at Not on file Legal Sex Female 3:40 AM SERVICE ASSISTANT Gender Identity Not on file Sexual [...] documented as of this encounter Care Teams Catalog Librarian Relationship Specialty Start Date End Date Areli Gurrola MD [address] [place] [address] PCP - General Specialist 08/12/19 documented as of this encounter
--- OUTSIDE RECORDS SUMMARY | 2025-01-01 17:46 | XMS_ITS | Encounter Summary ---
Author Organization [facility] Address [address] [place] [address] Care Team Providers Care Mold Builder Name Role Phone Areli Gurrola MD Primary Care Provider Encounter Details Date Type Department Care Team (Latest Contact Info) Description 01/20/2002 Outpatient Historical [facility] [address] [place] [address] Trell York MD [address] [place] [address] NEUROTIC DEPRESSION (Primary Dx); ANXIETY STATE NOS; CERVICALGIA; LUMBAGO Social History Tobacco Use Types Packs/Day Years Used Date Smoking Tobacco: Never Assessed Comments Unknown Sex and Gender Information Value Date Recorded Sex Assigned at Not on file Legal Sex Female 3:40 AM PUMPER HEAD Gender Identity Not on file Sexual [...] as of this encounter Care Teams Mold Builder Relationship Specialty Start Date End Date Areli Gurrola MD [address] [place] [address] PCP - General Specialist 08/12/19 documented as of this encounter
--- OUTSIDE RECORDS SUMMARY | 2025-01-01 17:46 | XMS_ITS | Encounter Summary ---
Author Organization [facility] Address [address] [place] [address] Care Team Providers Care Skein Mercerizing Machine Operator Name Role Phone Areli Gurrola MD Primary Care Provider Encounter Details Date Type Department Care Team (Latest Contact Info) Description 12/04/2001 Outpatient [facility] [address] [place] [address] Trell York MD [address] [place] [phone] ACUTE BRONCHITIS (Primary Dx); COUGH Social History Tobacco Use Types Packs/Day Years Used Date Smoking Tobacco: Never Assessed Comments Unknown Sex and Gender Information Value Date Recorded Sex Assigned at Not on file Legal Sex Female 3:40 AM DRAUGHTSMAN Gender Identity Not on file Sexual Orientation [...] as of this encounter Care Teams Skein Mercerizing Machine Operator Relationship Specialty Start Date End Date Areli Gurrola MD [address] [facility] [place] [address] PCP - General Specialist 08/12/19 documented as of this encounter
--- OUTSIDE RECORDS SUMMARY | 2025-01-01 17:46 | XMS_ITS | Encounter Summary ---
Author Organization [facility] Address [address] [place] [address] Care Team Providers Care Entertainment Director Name Role Phone Areli Gurrola MD Primary Care Provider Encounter Details Date Type Department Care Team (Latest Contact Info) Description 08/20/[address] [facility] [place] [address] [place] [address] Trell York MD [address] [place] [phone] ACUTE PHARYNGITIS (Primary Dx) Social History Tobacco Use Types Packs/Day Years Used Date Smoking Tobacco: Never Assessed Comments Unknown Sex and Gender Information Value Date Recorded Sex Assigned at Not on file Legal Sex Female 3:40 AM TOY DESIGNER Gender Identity Not on file Sexual Orientation Not on file documented as of this encounter Plan of Treatment Not on file documented as of this encounter Visit Diagnoses Diagnosis Acute pharyngitis- Primary documented in this encounter Additional Health Concerns Infection Onset Date Last Indicated Resolved Time R/O COVID-19 01/31/2020 01/31/2020 02/02/2020 10:3 2 AM CDT documented as of this encounter Care Teams Entertainment Director Relationship Specialty Start Date End Date Areli Gurrola MD [address] [facility] [place] [address] PCP - General Specialist 08/12/19 documented as of this encounter
--- OUTSIDE RECORDS SUMMARY | 2025-01-01 17:46 | XMS_ITS | Encounter Summary ---
Author Organization [facility] Address [address] [place] [address] Care Team Providers Care Cosmetology Professor Name Role Phone Areli Gurrola MD Primary Care Provider Encounter Details Date Type Department Care Team (Latest Contact Info) Description 04/07/2002 Outpatient Historical [facility] [address] [place] [address] Trell York MD [address] [place] [phone] URTICARIA NOS (Primary Dx) Social History Tobacco Use Types Packs/Day Years Used Date Smoking Tobacco: Never Assessed Comments Unknown Sex and Gender Information Value Date Recorded Sex Assigned at Not on file Legal Sex Female 3:40 AM CITY MAGISTRATE Gender Identity Not on file Sexual Orientation Not on file documented as of this encounter Plan of Treatment Not on file documented as of this encounter Visit Diagnoses Diagnosis Urticaria, unspecified- Primary documented in this encounter Additional Health Concerns Infection Onset Date Last Indicated Resolved Time R/O COVID-19 01/31/2020 01/31/2020 02/02/2020 10:3 2 AM CDT documented as of this encounter Care Teams Cosmetology Professor Relationship Specialty Start Date End Date Areli Gurrola MD [address] [facility] [place] [address] PCP - General Specialist 08/12/19 documented as of this encounter
--- OUTSIDE RECORDS SUMMARY | 2025-01-01 17:46 | XMS_ITS | Encounter Summary ---
Author Organization [facility] Address [address] [place] [address] Care Team Providers Care Dynamics Ax Developer Name Role Phone Areli Gurrola MD Primary Care Provider Encounter Details Date Type Department Care Team (Late st Contact Info) Description 04/14/2002 Outpatient Historical [facility] [address] [place] [address] Miguelangel Mas, NO ADDRESS ON FILE JOINT PAIN-ANKLE (Primary Dx) Social History Tobacco Use Types Packs/Day Years Used Date Smoking Tobacco: Never Assessed Comments Unknown Sex and Gender Information Value Date Recorded Sex Assigned at Not on file Legal Sex Female 3:40 AM DIRECTOR WORK Gender Identity Not on file Sexual Orientation [...] documented as of this encounter Care Teams Dynamics Ax Developer Relationship Specialty Start Date End Date Areli Gurrola MD [address] [facility] [place] [address] PCP - General Specialist 08/12/19 documented as of this encounter
--- OUTSIDE RECORDS SUMMARY | 2025-01-01 17:46 | XMS_ITS | Encounter Summary ---
Author Organization [facility] Address [address] [place] [address] Care Team Providers Care Contract Designer Name Role Phone Areli Gurrola MD Primary Care Provider Encounter Details Date Type Department Care Team (Late st Contact Info) Description 04/14/2002 Outpatient [facility] [address] [place] [address] Miguelangel Mas, NO ADDRESS ON FILE SPRAIN OF ANKLE NOS (Primary Dx) Social History Tobacco Use Types Packs/Day Years Used Date Smoking Tobacco: Never Assessed Comments Unknown Sex and Gender Information Value Date Recorded Sex Assigned at Not on file Legal Sex Female 3:40 AM SYSTEMS NAVIGATOR Gender Identity Not on file Sexual Orientation [...] documented as of this encounter Care Teams Contract Designer Relationship Specialty Start Date End Date Areli Gurrola MD [address] [facility] [address] PCP - General Specialist 08/12/19 documented as of this encounter
--- OUTSIDE RECORDS SUMMARY | 2025-01-01 17:46 | XMS_ITS | Encounter Summary ---
Author Organization [facility] Address [address] [place] [address] Care Team Providers Care Associate Publisher Name Role Phone Areli Gurrola MD Primary Care Provider Encounter Details Date Type Department Care Team (Latest Contact Info) Description 07/09/2002 Outpatient Historical [facility] [address] [place] [address] Trell York MD [address] [place] [phone] OTHER MALAISE AND FATIGUE (Primary Dx); CERVICALGIA Social History Tobacco Use Types Packs/Day Years Used Date Smoking Tobacco: Never Assessed Comments Unknown Sex and Gender Information Value Date Recorded Sex Assigned at Not on file Legal Sex Female 3:40 AM COMPUTER SPECIALIST Gender Identity Not on file Sexual [...] End Date Areli Gurrola MD [address] [facility] [place] [address] PCP - General Specialist 08/12/19 documented as of this encounter
--- OUTSIDE RECORDS SUMMARY | 2025-01-01 17:46 | XMS_ITS | Encounter Summary ---
Author Organization [facility] Address [address] [place] [address] Care Team Providers Care Assistant Property Manager Name Role Phone Areli Gurrola MD Primary Care Provider Encounter Details Date Type Department Care Team (Latest Contact Info) Description 11/20/2001 Outpatient Historical [facility] [address] [place] [address] Trell York MD [address] [place] [phone] LUMBAGO (Primary Dx); SEBACEOUS CYST Social History Tobacco Use Types Packs/Day Years Used Date Smoking Tobacco: Never Assessed Comments Unknown Sex and Gender Information Value Date Recorded Sex Assigned at Not on file Legal Sex Female 3:40 AM TAILOR HELPER Gender Identity Not on file Sexual [...] documented as of this encounter Care Teams Assistant Property Manager Relationship Specialty Start Date End Date Areli Gurrola MD [address] [place] [address] PCP - General Specialist 08/12/19 documented as of this encounter
--- OUTSIDE RECORDS SUMMARY | 2025-01-01 17:46 | XMS_ITS | Encounter Summary ---
Author Organization [facility] Address [address] [place] [address] Care Team Providers Care Cutting Pressman Name Role Phone Areli Gurrola MD Primary Care Provider Encounter Details Date Type Department Care Team (Latest Contact Info) Description 10/31/2002 [facility] [address] [place] [address] Gordon Cabral MD NO ADDRESS ON FILE SURGERY FOLLOWUP, UNSPEC (Primary Dx) Social History Tobacco Use Types Packs/Day Years Used Date Smoking Tobacco: Never Assessed Comments Unknown Sex and Gender Information Value Date Recorded Sex Assigned at Not on file Legal Sex Female 3:40 AM VASCULAR TECHNOLOGIST Gender Identity Not on file Sexual Orientation [...] documented as of this encounter Care Teams Cutting Pressman Relationship Specialty Start Date End Date Areli Gurrola MD [address] [facility] [place] [address] PCP - General Specialist 08/12/19 documented as of this encounter
--- OUTSIDE RECORDS SUMMARY | 2025-01-01 17:46 | XMS_ITS | Encounter Summary ---
Author Organization [facility] Address [address] [place] [address] Care Team Providers Care Mds Nurse Name Role Phone Areli Gurrola MD Primary Care Provider Encounter Details Date Type Department Care Team (Latest Contact Info) Description 07/30/2002 Outpatient Historical [facility] [address] [place] [address] Trell York MD [address] [place] [phone] INSOMNIA NEC (Primary Dx); NEUROTIC DEPRESSION; LUMBAGO Social History Tobacco Use Types Packs/Day Years Used Date Smoking Tobacco: Never Assessed Comments Unknown Sex and Gender Information Value Date Recorded Sex Assigned at Not on file Legal Sex Female 3:40 AM PATTERN GATER Gender Identity Not on file Sexual Orientation [...] documented as of this encounter Care Teams Mds Nurse Relationship Specialty Start Date End Date Areli Gurrola MD [address] [facility] [address] PCP - General Specialist 08/12/19 documented as of this encounter
[2025-01-01 17:50] VITALS: BP 158/87; PULSE 104; RESP 18; O2SAT 100
--- NOTE | 2025-01-01 18:40 | ED.C_ITS ---
HPI - Psych General: Chief Complaint: Psychiatric Symptoms Stated Complaint: No sleep 3 days Weakness Time Seen by Provider: 01/01/25 18:30 Source: patient Mode of arrival: ambulatory Limitations: no limitations History of Present Illness: 59-year-old female has a history insomni a states she has not been able to sleep the last 3 nights and states she feels very tired is having some anxiety. Patient denies any SI or HI has no other complaints Related Data Home Medications ?Medication ?Instructions ?Recorded ?Confirmed albuterol sulfate 90 mcg/actuation 2 puff inhalation Q 4H PRN 04/04/24 11/24/24 aerosol inhaler Shortness Of Breath Or Wheez ing ziprasidone HCl 20 mg capsule 20 mg PO BID PRN Anxiety 07/23/24 11/24/24 buspirone 5 mg tablet 5 mg PO BID PRN Anxiety 08/3111/24/24 tizanidine 4 mg capsule 4 mg PO Q8H PRN Spasms 09/1111/24/24 epinephrine 0.3 mg/0.3 mL See Rx Instructions .Route . COMPLEX 11/24/24 11/24/24 injection, auto-injector furosemide 20 mg tablet 20 mg PO QAM PRN Edema 11/2411/24/24 nitroglycerin 0.4 mg sublingual See Rx Instructions .R oute .COMPLEX 11/24/24 11/24/24 tablet Previous Rx's ?Medication ?Instructions ?Recorded hydroxyzine HCl 25 mg tablet 25 mg PO Q8H PRN anxiety #10 tabs 07/23/24 multivitamin 1 tab PO DAILY #30 tabs 08/31 potassium chloride 10 mEq 10 meq PO DAILY diuretic use #30 10/09/24 tablet,extended release (Klor-Con) tabs ciprofloxacin HCl 500 mg tablet 500 mg PO Q12H #14 tab s 11/26/24 (Cipro) Allergies Allergy/AdvReac Type Severity Reaction Status Date / Time venom-wasp Allergy Severe ALGY-Anaphy Verified 11/24/24 14:34 laxis Sulfa (Sulfonamide Allergy Intermediate Hives Verified 11/24/24 14:34 Antibiotics) aspirin Allergy Unknown Unknown Verified 11/24/24 14:34 NSAIDS (Non-Steroidal Allergy Unknown Unknown Verified 11/24/24 14:34 Anti-Inflamma sumatriptan (From Imitrex) Allergy Unknown Unknown Verified 11/24/24 14:34 ibuprofen (From NeoProfen Allergy UNKNOWN Verified 11/24/24 14:34 (ibuprofen lysn)(PF)) metoclopramide (From Reglan) Allergy ALGY-Joint Verified 11/24/24 14:34 Pain bupropion (From Wellbutrin) AdvReac Intermediate ALGY-Rash Verified 11/24/24 14:34 prednisone AdvReac Intermediate Heart rate Verified 11/24/24 14:34 was heavy. Langston sick. Cephalosporins AdvReac Unknown Unknown Verified 11/24/24 14:34 PFSH ED PFS: Medical History PTSD (post-traumatic stress disorder) Suicidal ideation Cannabis dependence, episodic use Major depressive disorder, recurrent, severe with psychotic symptoms Nicotine dependence due to vaping tobacco product Vaping nicotine Chronic post-traumatic stress disorder Alcohol use disorder, severe, dependence Psychiatric care Uncontrolled type 2 diabetes with neuropathy Sacroiliitis H/O Belkys-Valenzuela syndrome (~07/2019) EGD at [facility]. EGD 10/26 negative. Chronic back pain Congestive heart failure Diabetes mellitus MONTANO (nonalcoholic steatohepatitis) Borderline personality disorder Bilateral primary osteoarthritis of hip Surgical History History of hysterectomy History of esophagogastroduodenoscopy H/O colonoscopy H/O cervical spine surgery Family History Son Suicide September 2019 Other Cancer Hypertension Psychiatric illness Social History Smoking and tobacco/nicotine status: current every day tobacco/nicotine user cigarettes [ Other cigarette details: When vape breaks she returns to cigarettes] and e-cigarettes E-Cigarette Details: vaporizer device and with nicotine E-cig/vape details: 6000 puffs in each device, uses 3 per month Quit status (tobacco/nicotine): not considering quitting Second hand smoke exposure: Yes Alcohol intake: current Alcohol intake frequency: few times a month Alcohol type: hard liquor Substance/Drug Use: current Substance/Drug use frequency: daily Other substance/drug use details: medical card Adopted: No Caregiver/support person: Yes (cleans and runs errands) Lives independently: Yes Household members: none Housing: Apartment Marital status: Single Number of children: 2 Number of grandchildren: 0 Highest education level completed: Associate Degree: Occupational, Technical, Vocational Program Education level details: REPRODUCTION ORDER PROCESSOR service: No Current occupational status: disabled Current occupational exposures/hazards: No Pets and animals: Yes Pets & animals: cat(s) Leisure activites: music, games and other Leisure activities details: watch a lot of movies Sexually active: No Do you think of yourself as: Straight/Heterosexual Current gender identity: Female [facility] Special aparna needs: No Agree to transfusion: Yes Female Reproductive History: Para: 2 Spontaneous abortions: Yes (10) Physical Exam Const: COMMON NORMALS: no acute distress, patient oriented x3 and healthy appearing HENMT: COMMON NORMALS: normocephalic and atraumatic HEAD & SCALP: normocephalic and atraumatic Eye: COMMON NORMALS: conjunctivae normal CONJUNCTIVA: Yes conjunctivae normal Neck/C-Spine: COMMON NORMALS: full ROM and supple Chest: COMMONS NORMALS: normal inspection of the chest Resp: COMMON NORMALS: normal respiratory effort Cardio: COMMON NORMALS: regular rate RATE: regular rate Extremity: COMMON NORMALS: normal to inspection and full ROM Neuro: COMMON NORMALS: patient oriented x3, moves all extremities and no focal motor deficits Psych: COMMON NORMALS: mental status grossly normal, Normal thought process present and cooperative THOUGHT PROCESS: Normal thought process present Skin: COMMON NORMALS: no rashes or lesions noted and no wounds GENERAL SKIN EXAM: no rashes or lesions noted Course Vital Signs: Vital signs: Vital Signs Pulse Rate 104 H 01/01/25 17:50 Respiratory Rate 18 01/01/25 17:50 Blood Pressure 158/87 01/01/25 17:50 Pulse Oximetry 100 01/01/25 17:50 Oxygen Delivery Me thod Room Air 01/01/25 17:50 MDM - Psych Medical Decision Making Patient presents here with insomnia she is well-appearing here did give her Steven um here she is to follow-up her PCP she understands agrees to plan Medical Records I reviewed the patient's medical records. All radiology interpretation(s) finalized by discharge Discharge Plan Discharge Patient Disposition: Home Clinical Impression: Insomnia Qualifiers: Insomnia type: unspecified Qualified Code(s): G47.00 - Insomnia, unspecified Condition: Stable Prescriptions: No Action buspirone 5 mg tablet 5 mg PO BID PRN (Reason: Anxiety) Patient Comments: at bedtime tizanidine 4 mg capsule 4 mg PO Q8H PRN (Reason: Spasms) multivitamin Tablet 1 tab PO DAILY Qty: 30 2RF potassium chloride [Klor-Con 10] 10 mEq tablet extended release 10 meq PO DAILY Qty: 30 0RF Rx Instructions: with furosemide. albuterol sulfate 90 mcg/actuation HFA aerosol inhaler 2 puff INHALATION Q4H PRN (Reason: Shortness Of Breath Or Wheezing) ziprasidone HCl 20 mg capsule 20 mg PO BID PRN (Reason: Anxiety) hydroxyzine HCl 25 mg tablet 25 mg PO Q8H PRN (Reason: anxiety) Qty: 10 0RF nitroglycerin 0.4 mg tablet, sublingual See Rx Instructions .ROUTE .COMPLEX Rx Instructions: PLACE ONE TABLET UNDER TONGUE NEEDED FOR CHEST PAIN. epinephrine 0.3 mg/0.3 mL auto-injector See Rx Instructions .ROUTE .COMPLEX Rx Instructions: INJECT 1 PEN IN THE MUSCLE ONE TIME DIRECTED. furosemide 20 mg tablet 20 mg PO QAM PRN (Reason: Edema) Rx Instructions: Take one tablet in AM along with potassium 10mEq tablet. ciprofloxacin HCl [Cipro] 500 mg tablet 500 mg PO Q12H Qty: 14 0RF Discharge Orders: Discharge ED (Routine); Ordered 01/01/25 Ordered By: Carmela Haro Referrals: Aida Vincent PA [Primary Care Provider, Physicians Conditioning Coach] - 4-7 days Discharge Diet: Advance as tolerated Discharge Activity: Resume usual activity Patient Instructions: Insomnia (ED) Print Language: Nauruan Coding Level of Care Code ED Weight Loss Counselor for Rober Arellano
== END 2025-01-01 19:15 | disposition home or self-care (01) ==
PROVIDERS: Emergency Provider Emergency Medicine; PCP Physician Assistant
DX: G47.00 Insomnia, unspecified (principal); F17.290 Nicotine dependence, other tobacco product, uncomplicated; F17.200 Nicotine dependence, unspecified, uncomplicated; E11.40 Type 2 diabetes mellitus with diabetic neuropathy, unspecified; I50.9 Heart failure, unspecified
CPT/HCPCS: 99283; J9999

== ENCOUNTER 2025-01-10 16:12 | Emergency (ER) | payer MEDICARE, MEDICAID, SELFPAY ==
--- OUTSIDE RECORDS SUMMARY | 2024-02-02 04:00 | XMS_ITS ---
Author Organization [facility] Address [address] [place] [address] Care Team Providers Care Cross Country Coach Name Role Phone Joseph Lewis MD Primary Care Provider Zane Joiner Unavailable [phone] ELROY BOOTHE Unavailable Unavailable Migration, Provider Unavailable [...] * Kay GAMBOA MDOB:1965 (59 yo F)Acc No.[id number]:02/02/2024 Patient: Elva Kay RODRIGUEZ :1965 A ge:58 Y S ex:Female Address:[address], [address] [place] [address] * Refills Stop Zubsolv 5.7-1.4 mg sublingual tablet, sublingual, 1 Tablet Twice a Day Subjective: * Chief Complaints: * E MR-Luke * * Date:
--- OUTSIDE RECORDS SUMMARY | 2024-02-03 04:00 | XMS_ITS ---
Author Organization [facility] Address [address] [place] [address] Care Team Providers Care Elevator Installer Name Role Phone Joseph Lewis MD Primary Care Provider Zane Joiner Unavailable [phone] ELROY BOOTHE Unavailable Unavailable Migration, Provider Unavailable [...] * Kay GAMBOA MDOB:1965 (59 yo F)Acc No.[id number]:02/03/2024 Patient: Elva CADEKay BIGGS :1965 A ge:58 Y S ex:Female Address:[address], [address] [place] [address] Subjective: * Chief Complaints: * E MR-Luke [...]
[2024-09-18 15:42] VITALS: BP 147/78; BMI 37.0
[2025-01-10 16:17] VITALS: BP 149/81; PULSE 66; RESP 16; TEMP 36.7; O2SAT 99; BMI 30.2
--- OUTSIDE RECORDS SUMMARY | 2025-01-10 16:21 | XMS_ITS | Encounter Summary ---
Author Organization [facility] Address [address] [facility] Attn: [place] [address] Care Team Providers Care Rolling Machine Operator Name Role Phone Areli Gurrola [...] file Legal Sex Female 3:40 AM HOME DEMONSTRATION AGENT Gender Identity Not on file Sexual Orientation Not on file documented as of this encounter Plan of Treatment Not on file documented as of this encounter Visit Diagnoses Not on filedocumented in this encounter Additional Health Concerns Infection Onset Date Last Indicated Resolved Time R/O COVID-19 01/31/2020 01/31/2020 02/02/2020 10:3 2 AM CDT documented as of this encounter Care Teams Rolling Machine Operator Relationship Specialty Start Date End Date Areli Gurrola MD [address] [facility] [place] [address] PCP - General Specialist 08/12/19 documented as of this encounter
--- OUTSIDE RECORDS SUMMARY | 2025-01-10 16:21 | XMS_ITS | Encounter Summary ---
Author Organization [facility] Address [address] [place] [address] Care Team Providers Care Artisan Plasterer Name Role Phone Areli Gurrola MD Primary Care Provider Encounter Details Date Type Department Care Team (Latest Contact Info) Description 04/23/2000 Outpatient [facility] [address] [place] [address] Trell York MD [address] [place] [phone] Cervicalgia (Primary Dx); Other convulsions Social History Tobacco Use Types Packs/Day Years Used Date Smoking Tobacco: Never Assessed Comments Unknown Sex and Gender Information Value Date Recorded Sex Assigned at Not on file Legal Sex Female 3:40 AM GHOST WRITER Gender Identity Not on file Sexual [...] documented as of this encounter Care Teams Artisan Plasterer Relationship Specialty Start Date End Date Areli Gurrola MD [address] [facility] [place] [address] PCP - General Specialist 08/12/19 documented as of this encounter
--- OUTSIDE RECORDS SUMMARY | 2025-01-10 16:21 | XMS_ITS | Encounter Summary ---
Author Organization [facility] Address [address] [place] [address] Care Team Providers Care Nursing Administrator Name Role Phone Areli Gurrola MD Primary Care Provider Encounter Details Date Type Department Care Team (Latest Contact Info) Description 12/27/1999 Outpatient Historical [facility] [address] [place] [address] Trell York MD [address] [place] [phone] Migraine without aura, without mention of intractable migraine without mention of status migrainosus (Primary Dx); Lumbago Social History Tobacco Use Types Packs/Day Years Used Date Smoking Tobacco: Never Assessed Comments Unknown Sex and Gender Information Value Date Recorded Sex Assigned at Not on file Legal Sex Female 3:40 AM BREAKING MACHINE OPERATOR Gender Identity Not on file [...] documented as of this encounter Care Teams Nursing Administrator Relationship Specialty Start Date End Date Areli Gurrola MD [address] [facility] [place] [place] [address] PCP - General Specialist 08/12/19 documented as of this encounter
--- OUTSIDE RECORDS SUMMARY | 2025-01-10 16:21 | XMS_ITS | Encounter Summary ---
Author Organization [facility] Address [address] [place] [address] Care Team Providers Care Pediatric Dental Assistant Name Role Phone Areli Gurrola MD Primary Care Provider Encounter Details Date Type Department Care Team (Latest Contact Info) Description 02/21/2000 Outpatient Historical [facility] [address] [place] [address] Trell York MD [address] [place] [phone] Stricture of cervix (Primary Dx); Lumbago Social History Tobacco Use Types Packs/Day Years Used Date Smoking Tobacco: Never Assessed Comments Unknown Sex and Gender Information Value Date Recorded Sex Assigned at Not on file Legal Sex Female 3:40 AM SEAWEED HARVESTER Gender Identity Not on file Sexual Orientation [...] as of this encounter Care Teams Pediatric Dental Assistant Relationship Specialty Start Date End Date Areli Gurrola MD [address] [place] [address] PCP - General Specialist 08/12/19 documented as of this encounter
--- OUTSIDE RECORDS SUMMARY | 2025-01-10 16:21 | XMS_ITS | Encounter Summary ---
Author Organization [facility] Address [address] [place] [address] Care Team Providers Care Hot End Operator Name Role Phone Areli Gurrola MD Primary Care Provider Encounter Details Date Type Department Care Team (Late st Contact Info) Description 06/11/2001 Outpatient Historical [facility] Gen Spec Surg [address] [place] [address] Social History Tobacco Use Types Packs/Day Years Used Date Smoking Tobacco: Never Assessed Comments Unknown Sex and Gender Information Value Date Recorded Sex Assigned at Not on file Legal Sex Female 3:40 AM PLY BANDER Gender Identity Not on file Sexual Orientation Not on file documented as of this encounter Plan of Treatment Not on file documented as of this encounter Visit Diagnoses Not on filedocumented in this encounter Additional Health Concerns Infection Onset Date Last Indicated Resolved Time R/O COVID-19 01/31/2020 01/31/2020 02/02/2020 10:3 2 AM CDT documented as of this encounter Care Teams Hot End Operator Relationship Specialty Start Date End Date Areli Gurrola MD [address] [place] [address] PCP - General Specialist 08/12/19 documented as of this encounter
--- OUTSIDE RECORDS SUMMARY | 2025-01-10 16:21 | XMS_ITS | Encounter Summary ---
Author Organization [facility] Address [address] [place] [address] Care Team Providers Care Cable Ferry Operator Name Role Phone Areli Gurrola MD Primary Care Provider Encounter Details Date Type Department Care Team (Latest Contact Info) Description 03/14/2000 [facility] [address] [place] [address] Trell York MD [address] [place] [phone] Unspecified disorder of female genital organs (Primary Dx); Lumbago Social History Tobacco Use Types Packs/Day Years Used Date Smoking Tobacco: Never Assessed Comments Unknown Sex and Gender Information Value Date Recorded Sex Assigned at Not on file Legal Sex Female 3:40 AM CERTIFIED MAINTENANCE WELDER Gender Identity Not on file Sexual [...] documented as of this encounter Care Teams Cable Ferry Operator Relationship Specialty Start Date End Date Areli Gurrola MD [address] [facility] [place] [address] PCP - General Specialist 08/12/19 documented as of this encounter
--- OUTSIDE RECORDS SUMMARY | 2025-01-10 16:21 | XMS_ITS | Encounter Summary ---
Author Organization [facility] Address [address] [place] [address] Care Team Providers Care Dredge Pump Operator Name Role Phone Areli Gurrola MD Primary Care Provider Encounter Details Date Type Department Care Team (Latest Contact Info) Description 06/07/2000 Outpatient Historical [facility] [address] [place] [address] Trell York MD [address] [place] [phone] Lumbago (Primary Dx); Open wound of foot except toe(s) alone, without mention of complication Social History Tobacco Use Types Packs/Day Years Used Date Smoking Tobacco: Never Assessed Comments Unknown Sex and Gender Information Value Date Recorded Sex Assigned at Not on file Legal Sex Female 3:40 AM SALES REPRESENTATIVE GRAPHIC ART Gender Identity Not on file Sexual Orientation [...] documented as of this encounter Care Teams Dredge Pump Operator Relationship Specialty Start Date End Date Areli Gurrola MD [address] [facility] [place] [address] PCP - General Specialist 08/12/19 documented as of this encounter
--- OUTSIDE RECORDS SUMMARY | 2025-01-10 16:21 | XMS_ITS | Encounter Summary ---
Author Organization [facility] Address [address] [place] [address] Care Team Providers Care Hr Payroll Coordinator Name Role Phone Areli Gurrola MD Primary Care Provider Encounter Details Date Type Department Care Team (Latest Contact Info) Description 01/30/2000 Outpatient Historical [facility] [address] [place] [address] Trell York MD [address] [place] [phone] Lumbago (Primary Dx) Social History Tobacco Use Types Packs/Day Years Used Date Smoking Tobacco: Never Assessed Comments Unknown Sex and Gender Information Value Date Recorded Sex Assigned at Not on file Legal Sex Female 3:40 AM HEALTH AND SAFETY INSTRUCTOR Gender Identity Not on file Sexual Orientation Not on file documented as of this encounter Plan of Treatment Not on file documented as of this encounter Visit Diagnoses Diagnosis Lumbago- Primary documented in this encounter Additional Health Concerns Infection Onset Date Last Indicated Resolved Time R/O COVID-19 01/31/2020 01/31/2020 02/02/2020 10:3 2 AM CDT documented as of this encounter Care Teams Hr Payroll Coordinator Relationship Specialty Start Date End Date Areli Gurrola MD [address] [facility] [place] [address] PCP - General Specialist 08/12/19 documented as of this encounter
--- OUTSIDE RECORDS SUMMARY | 2025-01-10 16:21 | XMS_ITS | Encounter Summary ---
Author Organization [facility] Address [address] [facility] Attn: [place] [address] Care Team Providers Care Communications Media Professor Name Role Phone Areli Gurrola MD Primary Care Provider Encounter Details Date Type Department Care Team (Late st Contact Info) Description 04/17/2000 Outpatient Historical Mcihael Larios MD NO ADDRESS ON FILE Social History Tobacco Use Types Packs/Day Years Used Date Smoking Tobacco: Never Assessed Comments Unknown Sex and Gender Information Value Date Recorded Sex Assigned at Not on file Legal Sex Female 3:40 AM ACCOUNTING POLICY CONSULTANT Gender Identity Not on file Sexual Orientation Not on file documented as of this encounter Plan of Treatment Not on file documented as of this encounter Visit Diagnoses Not on filedocumented in this encounter Additional Health Concerns Infection Onset Date Last Indicated Resolved Time R/O COVID-19 01/31/2020 01/31/2020 02/02/2020 10:3 2 AM CDT documented as of this encounter Care Teams Communications Media Professor Relationship Specialty Start Date End Date Areli Gurrola MD [address] [facility] [place] [address] PCP - General Specialist 08/12/19 documented as of this encounter
--- OUTSIDE RECORDS SUMMARY | 2025-01-10 16:21 | XMS_ITS | Encounter Summary ---
Author Organization [facility] Address [address] [place]: [place] [address] Care Team Providers Care Oncology Consultant Name Role Phone Areli Gurrola MD Primary Care Provider Encounter Details Date Type Department Care Team (Late st Contact Info) Description 06/06/2001 Outpatient Historical [place], Trell Pascual MD [address] [place] [phone] Social History Tobacco Use Types Packs/Day Years Used Date Smoking Tobacco: Never Assessed Comments Unknown Sex and Gender Information Value Date Recorded Sex Assigned at Not on file Legal Sex Female 3:40 AM MAIL CLERK Gender Identity Not on file Sexual Orientation Not on file documented as of this encounter Plan of Treatment Not on file documented as of this encounter Visit Diagnoses Not on filedocumented in this encounter Additional Health Concerns Infection Onset Date Last Indicated Resolved Time R/O COVID-19 01/31/2020 01/31/2020 02/02/2020 10:3 2 AM CDT documented as of this encounter Care Teams Oncology Consultant Relationship Specialty Start Date End Date Areli Gurrola MD [address] [place] [phone] PCP - General Specialist 08/12/19 documented as of this encounter
--- OUTSIDE RECORDS SUMMARY | 2025-01-10 16:21 | XMS_ITS | Encounter Summary ---
Author Organization [facility] Address [address] [facility] Attn: [place] [address] Care Team Providers Care Engraver Name Role Phone Areli Gurrola MD Primary [...] on file Legal Sex Female 3:40 AM REPRODUCTIVE SURGEON Gender Identity Not on file Sexual Orientation Not on file documented as of this encounter Plan of Treatment Not on file documented as of this encounter Visit Diagnoses Not on filedocumented in this encounter Additional Health Concerns Infection Onset Date Last Indicated Resolved Time R/O COVID-19 01/31/2020 01/31/2020 02/02/2020 10:3 2 AM CDT documented as of this encounter Care Teams Engraver Relationship Specialty Start Date End Date Areli Gurrola MD [address] [facility] [place] [address] PCP - General Specialist 08/12/19 documented as of this encounter
--- OUTSIDE RECORDS SUMMARY | 2025-01-10 16:21 | XMS_ITS | Encounter Summary ---
Author Organization [facility] Address [address] [facility] Attn: [place] [address] Care Team Providers Care Metal Wire Coating Operator Name Role Phone Areli Gurrola MD Primary Care Provider Encounter Details Date Type Department Care Team (Late st Contact Info) Description 06/11/2001 Inpatient Historical Renan Martinez MD [address] [place] [address] Social History Tobacco Use Types Packs/Day Years Used Date Smoking Tobacco: Never Assessed Comments Unknown Sex and Gender Information Value Date Recorded Sex Assigned at Not on file Legal Sex Female 3:40 AM GAS TENDER Gender Identity Not on file Sexual Orientation Not on file documented as of this encounter Plan of Treatment Not on file documented as of this encounter Visit Diagnoses Not on filedocumented in this encounter Additional Health Concerns Infection Onset Date Last Indicated Resolved Time R/O COVID-19 01/31/2020 01/31/2020 02/02/2020 10:3 2 AM CDT documented as of this encounter Care Teams Metal Wire Coating Operator Relationship Specialty Start Date End Date Areli Gurrola MD [address] [facility] [place] [address] PCP - General Specialist 08/12/19 documented as of this encounter
--- OUTSIDE RECORDS SUMMARY | 2025-01-10 16:21 | XMS_ITS | Encounter Summary ---
Author Organization [facility] Address [address] [facility] Attn: [place] [address] Care Team Providers Care Digital Solution Architect Name Role Phone Areli Gurrola MD [...] file Legal Sex Female 3:40 AM SENIOR BIOINFORMATICS SPECIALIST Gender Identity Not on file Sexual Orientation Not on file documented as of this encounter Plan of Treatment Not on file documented as of this encounter Visit Diagnoses Not on filedocumented in this encounter Additional Health Concerns Infection Onset Date Last Indicated Resolved Time R/O COVID-19 01/31/2020 01/31/2020 02/02/2020 10:3 2 AM CDT documented as of this encounter Care Teams Digital Solution Architect Relationship Specialty Start Date End Date Areli Gurrola MD [address] [facility] [place] [address] PCP - General Specialist 08/12/19 documented as of this encounter
--- OUTSIDE RECORDS SUMMARY | 2025-01-10 16:22 | XMS_ITS | Encounter Summary ---
Author Organization [facility] Address [address] [place] [address] Care Team Providers Care Model Builder Name Role Phone Areli Gurrola MD Primary Care Provider Encounter Details Date Type Department Care Team (Latest Contact Info) Description 03/27/2001 Outpatient Historical [facility] [address] [place] [address] Trell York MD [address] [place] [phone] CERVICALGIA (Primary Dx); NEUROTIC DEPRESSION; LUMBAGO Social History Tobacco Use Types Packs/Day Years Used Date Smoking Tobacco: Never Assessed Comments Unknown Sex and Gender Information Value Date Recorded Sex Assigned at Not on file Legal Sex Female 3:40 AM ANALYTICAL LAB TECHNICIAN Gender Identity Not on file Sexual [...] documented as of this encounter Care Teams Model Builder Relationship Specialty Start Date End Date Areli Gurrola MD [address] [place] [address] PCP - General Specialist 08/12/19 documented as of this encounter
--- OUTSIDE RECORDS SUMMARY | 2025-01-10 16:22 | XMS_ITS | Encounter Summary ---
Author Organization [facility] Address [address] [place] [address] Care Team Providers Care Aircraft Hydraulic Equipment Mechanic Name Role Phone Areli Gurrola MD Primary Care Provider Encounter Details Date Type Department Care Team (Latest Contact Info) Description 11/13/[address] [facility] [address] [place] [address] Trell York MD [address] [place] [phone] Insomnia, unspecified (Primary Dx); Lumbago Social History Tobacco Use Types Packs/Day Years Used Date Smoking Tobacco: Never Assessed Comments Unknown Sex and Gender Information Value Date Recorded Sex Assigned at Not on file Legal Sex Female 3:40 AM DOUBLE END TENONER SETTER Gender Identity Not on file Sexual Orientation [...] as of this encounter Care Teams Aircraft Hydraulic Equipment Mechanic Relationship Specialty Start Date End Date Areli Gurrola MD [address] [place] [address] PCP - General Specialist 08/12/19 documented as of this encounter
--- OUTSIDE RECORDS SUMMARY | 2025-01-10 16:22 | XMS_ITS | Encounter Summary ---
Author Organization [facility] Address [address] [place] [address] Care Team Providers Care Spa Host Name Role Phone Areli Gurrola MD Primary Care Provider Encounter Details Date Type Department Care Team (Latest Contact Info) Description 08/09/1999 Outpatient Historical [facility] [address] [place] [address] Trell York MD [address] [place] [phone] Stricture of cervix (Primary Dx) Social History Tobacco Use Types Packs/Day Years Used Date Smoking Tobacco: Never Assessed Comments Unknown Sex and Gender Information Value Date Recorded Sex Assigned at Not on file Legal Sex Female 3:40 AM MARKETING OPERATIONS ANALYST Gender Identity Not on file Sexual [...] documented as of this encounter Care Teams Spa Host Relationship Specialty Start Date End Date Areli Gurrola MD [address] [facility] [place] [phone] PCP - General Specialist 08/12/19 documented as of this encounter
--- OUTSIDE RECORDS SUMMARY | 2025-01-10 16:22 | XMS_ITS | Encounter Summary ---
Author Organization [facility] Address [address] [place] [address] Care Team Providers Care Photocopier Technician Name Role Phone Areli Gurrola MD Primary Care Provider Encounter Details Date Type Department Care Team (Latest Contact Info) Description 05/24/1999 Outpatient Historical [facility] [address] [place] [address] Trell York MD [address] [place] [phone] Edema (Primary Dx); Lumbago Social History Tobacco Use Types Packs/Day Years Used Date Smoking Tobacco: Never Assessed Comments Unknown Sex and Gender Information Value Date Recorded Sex Assigned at Not on file Legal Sex Female 3:40 AM ECONOMIC CONSULTANT Gender Identity Not on file Sexual Orientation Not on file documented as of this encounter Plan of Treatment Not on file documented as of this encounter Visit Diagnoses Diagnosis Edema- Primary Lumbago documented in this encounter Additional Health Concerns Infection Onset Date Last Indicated Resolved Time R/O COVID-19 01/31/2020 01/31/2020 02/02/2020 10:3 2 AM CDT documented as of this encounter Care Teams Photocopier Technician Relationship Specialty Start Date End Date Areli Gurrola MD [address] [facility] [place] [address] PCP - General Specialist 08/12/19 documented as of this encounter
--- OUTSIDE RECORDS SUMMARY | 2025-01-10 16:22 | XMS_ITS | Encounter Summary ---
Author Organization [facility] Address [address] [place] [address] Care Team Providers Care Carpenter'S Helper Name Role Phone Areli Gurrola MD Primary Care Provider Encounter Details Date Type Department Care Team (Latest Contact Info) Description 07/27/2000 Outpatient Historical [facility] [address] [place] [address] Trell York MD [address] [place] [phone] Unspecified disorder of female genital organs (Primary Dx); Cervicalgia Social History Tobacco Use Types Packs/Day Years Used Date Smoking Tobacco: Never Assessed Comments Unknown Sex and Gender Information Value Date Recorded Sex Assigned at Not on file Legal Sex Female 3:40 AM TUFTING CREELER Gender Identity Not on file Sexual Orientation [...] documented as of this encounter Care Teams Carpenter'S Helper Relationship Specialty Start Date End Date Areli Gurrola MD [address] [place] [address] PCP - General Specialist 08/12/19 documented as of this encounter
--- OUTSIDE RECORDS SUMMARY | 2025-01-10 16:22 | XMS_ITS | Encounter Summary ---
Author Organization [facility] Address [address] [place] [address] Care Team Providers Care Employee Relations Assistant Name Role Phone Areli Gurrola MD Primary Care Provider Encounter Details Date Type Department Care Team (Latest Contact Info) Description 08/18/1999 Outpatient Historical [facility] Joseph Ramos MD [address] [place] [address] Pain in joint, hand (Primary Dx) Social History Tobacco Use Types Packs/Day Years Used Date Smoking Tobacco: Never Assessed Comments Unknown Sex and Gender Information Value Date Recorded Sex Assigned at Not on file Legal Sex Female 3:40 AM VACUUM SYSTEM TESTER Gender Identity Not on file Sexual Orientation [...] MD [address] [facility] [place] [address] PCP - General Specialist 08/12/19 documented as of this encounter
--- OUTSIDE RECORDS SUMMARY | 2025-01-10 16:22 | XMS_ITS | Encounter Summary ---
Author Organization [facility] Address [address] [place] [address] Care Team Providers Care Supervisor Fur Dressing Name Role Phone Areli Gurrola MD Primary Care Provider Encounter Details Date Type Department Care Team (Latest Contact Info) Description 12/05/2000 Outpatient [facility] [address] [place] [address] Trell York MD [address] [place] [phone] Lumbago (Primary Dx); Cervicalgia; Pain in joint, pelvic region and thigh Social History Tobacco Use Types Packs/Day Years Used Date Smoking Tobacco: Never Assessed Comments Unknown Sex and Gender Information Value Date Recorded Sex Assigned at Not on file Legal Sex Female 3:40 AM SMUDGER Gender Identity Not on file Sexual Orientation [...] as of this encounter Care Teams Supervisor Fur Dressing Relationship Specialty Start Date End Date Areli Gurrola MD [address] [place] [address] PCP - General Specialist 08/12/19 documented as of this encounter
--- OUTSIDE RECORDS SUMMARY | 2025-01-10 16:22 | XMS_ITS | Encounter Summary ---
Author Organization [facility] Address [address] [place] [address] Care Team Providers Care Eyeglass Inspector Name Role Phone Areli Gurrola MD Primary Care Provider Encounter Details Date Type Department Care Team (Latest Contact Info) Description 04/25/2001 Outpatient Historical [facility] [address] [place] [address] Trell York MD [address] [place] [phone] ESOPHAGITIS, UNSPECIFIED (Primary Dx); LUMBAGO; SEBACEOUS CYST Social History Tobacco Use Types Packs/Day Years Used Date Smoking Tobacco: Never Assessed Comments Unknown Sex and Gender Information Value Date Recorded Sex Assigned at Not on file Legal Sex Female 3:40 AM HACK DRIVER Gender Identity Not on file Sexual [...] documented as of this encounter Care Teams Eyeglass Inspector Relationship Specialty Start Date End Date Areli Gurrola MD [address] [place] [address] PCP - General Specialist 08/12/19 documented as of this encounter
--- OUTSIDE RECORDS SUMMARY | 2025-01-10 16:22 | XMS_ITS | Encounter Summary ---
Author Organization [facility] Address [address] [place] [address] Care Team Providers Care Business Representative Name Role Phone Areli Gurrola MD Primary Care Provider Encounter Details Date Type Department Care Team (Latest Contact Info) Description 06/20/1999 Outpatient Historical [facility] Joseph Ramos MD [address] [place] [address] Pain in joint, hand (Primary Dx) Social History Tobacco Use Types Packs/Day Years Used Date Smoking Tobacco: Never Assessed Comments Unknown Sex and Gender Information Value Date Recorded Sex Assigned at Not on file Legal Sex Female 3:40 AM SPINE SUPERVISOR Gender Identity Not on file Sexual [...] documented as of this encounter Care Teams Business Representative Relationship Specialty Start Date End Date Areli Gurrola MD [address] [facility] [place] [place] [address] PCP - General Specialist 08/12/19 documented as of this encounter
--- OUTSIDE RECORDS SUMMARY | 2025-01-10 16:22 | XMS_ITS | Encounter Summary ---
Author Organization [facility] Address [address] [place] [address] Care Team Providers Care Folder Stitcher Operator Name Role Phone Areli Gurrola MD Primary Care Provider Encounter Details Date Type Department Care Team (Latest Contact Info) Description 06/08/1999 Outpatient Historical [facility] [address] [place] [address] Trell York MD [address] [place] [phone] Carpal tunnel syndrome (Primary Dx); Sprain of neck; Obesity, unspecified Social History Tobacco Use Types Packs/Day Years Used Date Smoking Tobacco: Never Assessed Comments Unknown Sex and Gender Information Value Date Recorded Sex Assigned at Not on file Legal Sex Female 3:40 AM FUND DIRECTOR Gender Identity Not on file Sexual [...] documented as of this encounter Care Teams Folder Stitcher Operator Relationship Specialty Start Date End Date Areli Gurrola MD [address] [facility] [place] [address] PCP - General Specialist 08/12/19 documented as of this encounter
--- OUTSIDE RECORDS SUMMARY | 2025-01-10 16:22 | XMS_ITS | Encounter Summary ---
Author Organization [facility] Address [address] [place] [address] Care Team Providers Care Game Tester Name Role Phone Areli Gurrola MD Primary Care Provider Encounter Details Date Type Department Care Team (Latest Contact Info) Description 10/08/2000 Outpatient Historical [facility] [address] [place] [address] Trell York MD [address] [place] [phone] Sprain and strain of unspecified site of knee and leg (Primary Dx) Social History Tobacco Use Types Packs/Day Years Used Date Smoking Tobacco: Never Assessed Comments Unknown Sex and Gender Information Value Date Recorded Sex Assigned at Not on file Legal Sex Female 3:40 AM GEOGRAPHY INSTRUCTOR Gender Identity Not on file Sexual [...] as of this encounter Care Teams Game Tester Relationship Specialty Start Date End Date Areli Gurrola MD [address] [facility] [place] [address] PCP - General Specialist 08/12/19 documented as of this encounter
--- OUTSIDE RECORDS SUMMARY | 2025-01-10 16:22 | XMS_ITS | Encounter Summary ---
Author Organization [facility] Address [address] [place] [address] Care Team Providers Care Senior Environmental Practice Leader Name Role Phone Areli Gurrola MD Primary Care Provider Encounter Details Date Type Department Care Team (Latest Contact Info) Description 07/20/1999 Outpatient Historical [facility] Joseph Ramos MD [address] [place] [address] Pain in joint, hand (Primary Dx) Social History Tobacco Use Types Packs/Day Years Used Date Smoking Tobacco: Never Assessed Comments Unknown Sex and Gender Information Value Date Recorded Sex Assigned at Not on file Legal Sex Female 3:40 AM TANK PROCESSOR Gender Identity Not on file Sexual [...] as of this encounter Care Teams Senior Environmental Practice Leader Relationship Specialty Start Date End Date Areli Gurrola MD [address] [facility] [place] [address] PCP - General Specialist 08/12/19 documented as of this encounter
--- OUTSIDE RECORDS SUMMARY | 2025-01-10 16:22 | XMS_ITS | Encounter Summary ---
Author Organization [facility] Address [address] [place] [address] Care Team Providers Care Lounge Car Attendant Name Role Phone Areli Gurrola MD Primary Care Provider Encounter Details Date Type Department Care Team (Latest Contact Info) Description 06/08/1999 Outpatient Historical [facility] [place], Trell Pascual MD [address] [place] [address] Obesity, unspecified (Primary Dx); Encounter for long-term (current) use of other medications Social History Tobacco Use Types Packs/Day Years Used Date Smoking Tobacco: Never Assessed Comments Unknown Sex and Gender Information Value Date Recorded Sex Assigned at Not on file Legal Sex Female 3:40 AM LANGUAGE SPECIALIST Gender Identity Not on file Sexual [...] documented as of this encounter Care Teams Lounge Car Attendant Relationship Specialty Start Date End Date Areli Gurrola MD [address] [facility] [place] [address] PCP - General Specialist 08/12/19 documented as of this encounter
--- OUTSIDE RECORDS SUMMARY | 2025-01-10 16:22 | XMS_ITS | Encounter Summary ---
Author Organization [facility] Address [address] [facility] Attn: [place] [address] Care Team Providers Care Cyber Special Agent Name Role Phone Areli Gurrola MD [...] on file Legal Sex Female 3:40 AM OVERNIGHT CAREGIVER Gender Identity Not on file Sexual Orientation Not on file documented as of this encounter Plan of Treatment Not on file documented as of this encounter Visit Diagnoses Not on filedocumented in this encounter Additional Health Concerns Infection Onset Date Last Indicated Resolved Time R/O COVID-19 01/31/2020 01/31/2020 02/02/2020 10:3 2 AM CDT documented as of this encounter Care Teams Cyber Special Agent Relationship Specialty Start Date End Date Areli Gurrola MD [address] [place] [address] PCP - General Specialist 08/12/19 documented as of this encounter
--- OUTSIDE RECORDS SUMMARY | 2025-01-10 16:22 | XMS_ITS | Encounter Summary ---
Author Organization [facility] Address [address] [place] [address] Care Team Providers Care Ammonia Worker Name Role Phone Areli Gurrola MD Primary Care Provider Encounter Details Date Type Department Care Team (Latest Contact Info) Description 01/07/2001 Outpatient Historical [facility] [address] [place] [address] Trell York MD [address] [place] [phone] Unspecified disorder of female genital organs (Primary Dx); Cervicalgia; Lumbago Social History Tobacco Use Types Packs/Day Years Used Date Smoking Tobacco: Never Assessed Comments Unknown Sex and Gender Information Value Date Recorded Sex Assigned at Not on file Legal Sex Female 3:40 AM SUPERVISOR MOLD YARD Gender Identity Not on file Sexual Orientation [...] documented as of this encounter Care Teams Ammonia Worker Relationship Specialty Start Date End Date Areli Gurrola MD [address] [place] [address] PCP - General Specialist 08/12/19 documented as of this encounter
--- OUTSIDE RECORDS SUMMARY | 2025-01-10 16:23 | XMS_ITS | Encounter Summary ---
Author Organization [facility] Address [address] [facility] Attn: [place] [address] Care Team Providers Care Crankshaft Straightener Name Role Phone Areli Gurrola MD Primary Care Provider Encounter Details Date Type Department Care Team (Late st Contact Info) Description 11/16/1999 Outpatient Historical Joseph Ramos MD [address] [place] [address] Social History Tobacco Use Types Packs/Day Years Used Date Smoking Tobacco: Never Assessed Comments Unknown Sex and Gender Information Value Date Recorded Sex Assigned at Not on file Legal Sex Female 3: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 MIXER OPERATOR VACUUM PAN SALT Gender Identity Not on file Sexual Orientation Not on file documented as of this encounter Plan of Treatment Not on file documented as of this encounter Visit Diagnoses Not on filedocumented in this encounter Additional Health Concerns Infection Onset Date Last Indicated Resolved Time R/O COVID-19 01/31/2020 01/31/2020 02/02/2020 10:3 2 AM CDT documented as of this encounter Care Teams Crankshaft Straightener Relationship Specialty Start Date End Date Areli Gurrola MD [address] [place] [address] PCP - General Specialist 08/12/19 documented as of this encounter
--- OUTSIDE RECORDS SUMMARY | 2025-01-10 16:23 | XMS_ITS | Encounter Summary ---
Author Organization [facility] Address [address] [place] [address] Care Team Providers Care Millwork Estimator Name Role Phone Areli Gurrola MD Primary Care Provider Encounter Details Date Type Department Care Team (Latest Contact Info) Description 11/28/[address] [facility] [address] [place] [address] Trell York MD [address] [place] [phone] Lumbago (Primary Dx) Social History Tobacco Use Types Packs/Day Years Used Date Smoking Tobacco: Never Assessed Comments Unknown Sex and Gender Information Value Date Recorded Sex Assigned at Not on file Legal Sex Female 3:40 AM EMPLOYER RELATIONS REPRESENTATIVE Gender Identity Not on file Sexual Orientation Not on file documented as of this encounter Plan of Treatment Not on file documented as of this encounter Visit Diagnoses Diagnosis Lumbago- Primary documented in this encounter Additional Health Concerns Infection Onset Date Last Indicated Resolved Time R/O COVID-19 01/31/2020 01/31/2020 02/02/2020 10:3 2 AM CDT documented as of this encounter Care Teams Millwork Estimator Relationship Specialty Start Date End Date Areli Gurrola MD [address] [facility] [place] [address] PCP - General Specialist 08/12/19 documented as of this encounter
--- OUTSIDE RECORDS SUMMARY | 2025-01-10 16:23 | XMS_ITS | Encounter Summary ---
Author Organization [facility] Address [address] [place] [address] Care Team Providers Care Cad Manager Name Role Phone Areli Gurrola MD Primary Care Provider Encounter Details Date Type Department Care Team (Late st Contact Info) Description 05/23/1999 Outpatient Historical [facility] [address] [facility] [address] [place] [address] Trell Hines MD [address] [place] [address] Carpal tunnel syndrome (Primary Dx) Social History Tobacco Use Types Packs/Day Years Used Date Smoking Tobacco: Never Assessed Comments Unknown Sex and Gender Information Value Date Recorded Sex Assigned at Not on file Legal Sex Female 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
--- OUTSIDE RECORDS SUMMARY | 2025-01-10 16:23 | XMS_ITS | Encounter Summary ---
Author Organization [facility] Address [address] [place] [address] Care Team Providers Care Charter And Tour Bus Driver Name Role Phone Areli Gurrola MD Primary Care Provider Encounter Details Date Type Department Care Team (Late st Contact Info) Description 05/03/1999 Outpatient Historical [facility] [place], Gibran [place] MD [address] [facility] [address] [place] [address] Cramp of limb (Primary Dx) Social History Tobacco Use Types Packs/Day Years Used Date Smoking Tobacco: Never Assessed Comments Unknown Sex and Gender Information Value Date Recorded Sex Assigned at Not on file Legal Sex Female 3:40 AM SUPERVISOR PACKING ROOM Gender Identity Not on file Sexual Orientation Not on file documented as of this encounter Plan of Treatment Not on file documented as of this encounter Visit Diagnoses Diagnosis Cramp of limb- Primary documented in this encounter Additional Health Concerns Infection Onset Date Last Indicated Resolved Time R/O COVID-19 01/31/2020 01/31/2020 02/02/2020 10:3 2 AM CDT documented as of this encounter Care Teams Charter And Tour Bus Driver Relationship Specialty Start Date End Date Areli Gurrola MD [address] [place] [address] PCP - General Specialist 08/12/19 documented as of this encounter
--- OUTSIDE RECORDS SUMMARY | 2025-01-10 16:23 | XMS_ITS | Encounter Summary ---
Author Organization [facility] Address [address] [facility] Attn: [place] [address] Care Team Providers Care Woodwork Salvage Inspector Name Role Phone Areli Gurrola MD Primary Care Provider Encounter Details Date Type Department Care Team (Late st Contact Info) Description 11/10/1999 Outpatient Historical Joseph Ramos MD [address] [place] [address] Social History Tobacco Use Types Packs/Day Years Used Date Smoking Tobacco: Never Assessed Comments Unknown Sex and Gender Information Value Date Recorded Sex Assigned at Not on file Legal Sex Female 3:40 AM 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 WIRING LINEMAN Gender Identity Not on file Sexual Orientation Not on file documented as of this encounter Plan of Treatment Not on file documented as of this encounter Visit Diagnoses Not on filedocumented in this encounter Additional Health Concerns Infection Onset Date Last Indicated Resolved Time R/O COVID-19 01/31/2020 01/31/2020 02/02/2020 10:3 2 AM CDT documented as of this encounter Care Teams Woodwork Salvage Inspector Relationship Specialty Start Date End Date Areli Gurrola MD [address] [facility] [place] [address] PCP - General Specialist 08/12/19 documented as of this encounter
--- OUTSIDE RECORDS SUMMARY | 2025-01-10 16:23 | XMS_ITS | Encounter Summary ---
Author Organization [facility] Address [address] [place] [address] Care Team Providers Care Merchandise Manager Name Role Phone Areli Gurrola MD Primary Care Provider Encounter Details Date Type Department Care Team (Latest Contact Info) Description 05/09/1999 Outpatient Historical [facility] [address] [place] [address] Trell York MD [address] [place] [phone] Cervical spinal stenosis (Primary Dx); Contusion of elbow Social History Tobacco Use Types Packs/Day Years Used Date Smoking Tobacco: Never Assessed Comments Unknown Sex and Gender Information Value Date Recorded Sex Assigned at Not on file Legal Sex Female 3:40 AM CONTACT LENS ASSISTANT Gender Identity Not on file Sexual [...] documented as of this encounter Care Teams Merchandise Manager Relationship Specialty Start Date End Date Areli Gurrola MD [address] [place] [address] PCP - General Specialist 08/12/19 documented as of this encounter
--- OUTSIDE RECORDS SUMMARY | 2025-01-10 16:24 | XMS_ITS | Encounter Summary ---
Author Organization [facility] Address [address] [place] [address] Care Team Providers Care Gravity Manager Name Role Phone Areli Gurrola MD Primary Care Provider Encounter Details Date Type Department Care Team (Late st Contact Info) Description 03/25/1999 Outpatient Historical [facility] Social History Tobacco Use Types Packs/Day Years Used Date Smoking Tobacco: Never Assessed Comments Unknown Sex and Gender Information Value Date Recorded Sex Assigned at Not on file Legal Sex Female 3:40 AM COURTESY BUS DRIVER Gender Identity Not on file Sexual Orientation Not on file documented as of this encounter Plan of Treatment Not on file documented as of this encounter Visit Diagnoses Not on filedocumented in this encounter Additional Health Concerns Infection Onset Date Last Indicated Resolved Time R/O COVID-19 01/31/2020 01/31/2020 02/02/2020 10:3 2 AM CDT documented as of this encounter Care Teams Gravity Manager Relationship Specialty Start Date End Date Areli Gurrola MD [address] [place] [address] PCP - General Specialist 08/12/19 documented as of this encounter
--- OUTSIDE RECORDS SUMMARY | 2025-01-10 16:24 | XMS_ITS | Encounter Summary ---
Author Organization [facility] Address [address] [place] [address] Care Team Providers Care Research Program Assistant Name Role Phone Areli Gurrola MD Primary Care Provider Encounter Details Date Type Department Care Team (Latest Contact Info) Description 05/03/1999 Outpatient Historical [facility] [address] [place] [address] Alumno, Gibran Lynn MD [address] [place] [address] Cramp of limb (Primary Dx); Contracture of hand joint Social History Tobacco Use Types Packs/Day Years Used Date Smoking Tobacco: Never Assessed Comments Unknown Sex and Gender Information Value Date Recorded Sex Assigned at Not on file Legal Sex Female 3:40 AM TISSUE PACKER Gender Identity Not on file Sexual Orientation [...] documented as of this encounter Care Teams Research Program Assistant Relationship Specialty Start Date End Date Areli Gurrola MD [address] [place] [address] PCP - General Specialist 08/12/19 documented as of this encounter
--- OUTSIDE RECORDS SUMMARY | 2025-01-10 16:24 | XMS_ITS | Encounter Summary ---
Author Organization [facility] Address [address] [place] [address] Care Team Providers Care Transportation Department Head Name Role Phone Areli Gurrola MD Primary Care Provider Encounter Details Date Type Department Care Team (Latest Contact Info) Description 01/11/2004 Outpatient Historical [facility] [address] [place] [address] Trell York MD [address] [place] [id number] CERVICALGIA (Primary Dx); DYSTHYMIC DISORDER Social History Tobacco Use Types Packs/Day Years Used Date Smoking Tobacco: Never Assessed Comments Unknown Sex and Gender Information Value Date Recorded Sex Assigned at Not on file Legal Sex Female 3:40 AM REFINISH TECHNICIAN Gender Identity Not on file Sexual [...] as of this encounter Care Teams Transportation Department Head Relationship Specialty Start Date End Date Areli Gurrola MD [address] [place] [address] PCP - General Specialist 08/12/19 documented as of this encounter
--- OUTSIDE RECORDS SUMMARY | 2025-01-10 16:24 | XMS_ITS | Clinical Summary ---
Author Organization [facility] Address [address] [place] [address] Care Team Providers Care Insurance Assistant Name Role Phone Areli Gurrola MD [...] on file Legal Sex Female 3:40 AM WASH TANK TENDER Gender Identity Not on file [...] or Tdap) 03/15/2030 03/15/2020, 11/07/1997, 03/03/1997 Insurance [facility] DUAL COMPLETE MCR PPO D-SNP [place]ICAID [place] Advance Directives For more information, please contact: [phone] * Full Code (Latest Code Status on File) Date Activated Date Inactivated Comments 02/17/2016 12:44 PM 02/17/2016 4:46 PM Care Teams Insurance Assistant Relationship Specialty Start Date End Date Areli Gurrola MD [address] [place] [phone] PCP - General Specialist 08/12/19
--- OUTSIDE RECORDS SUMMARY | 2025-01-10 16:24 | XMS_ITS | Encounter Summary ---
Author Organization [facility] Address [address] [facility] Attn: [place] [address] Care Team Providers Care Outreach Rep Name Role Phone Areli Gurrola MD Primary Care Provider Encounter Details Date Type Department Care Team (Late st Contact Info) Description 08/19/1999 Outpatient Historical Joseph Ramos MD [address] [place] [address] Social History Tobacco Use Types Packs/Day Years Used Date Smoking Tobacco: Never Assessed Comments Unknown Sex and Gender Information Value Date Recorded Sex Assigned at Not on file Legal Sex Female 3:40 AM LOCOMOTIVE ENGINEER DIESEL Gender Identity Not on file Sexual Orientation Not on file documented as of this encounter Plan of Treatment Not on file documented as of this encounter Visit Diagnoses Not on filedocumented in this encounter Additional Health Concerns Infection Onset Date Last Indicated Resolved Time R/O COVID-19 01/31/2020 01/31/2020 02/02/2020 10:3 2 AM CDT documented as of this encounter Care Teams Outreach Rep Relationship Specialty Start Date End Date Areli Gurrola MD [address] [place] [address] PCP - General Specialist 08/12/19 documented as of this encounter
--- OUTSIDE RECORDS SUMMARY | 2025-01-10 16:24 | XMS_ITS | Encounter Summary ---
Author Organization [facility] Address [address] [place] [address] Care Team Providers Care Flame Burner Name Role Phone Areli Gurrola MD Primary Care Provider Encounter Details Date Type Department Care Team (Late st Contact Info) Description 03/16/1999 Outpatient Historical [facility] Social History Tobacco Use Types Packs/Day Years Used Date Smoking Tobacco: Never Assessed Comments Unknown Sex and Gender Information Value Date Recorded Sex Assigned at Not on file Legal Sex Female 3:40 AM GENERAL OPERATIONS AGENT Gender Identity Not on file Sexual Orientation Not on file documented as of this encounter Plan of Treatment Not on file documented as of this encounter Visit Diagnoses Not on filedocumented in this encounter Additional Health Concerns Infection Onset Date Last Indicated Resolved Time R/O COVID-19 01/31/2020 01/31/2020 02/02/2020 10:3 2 AM CDT documented as of this encounter Care Teams Flame Burner Relationship Specialty Start Date End Date Areli Gurrola MD [address] [place] [address] PCP - General Specialist 08/12/19 documented as of this encounter
--- OUTSIDE RECORDS SUMMARY | 2025-01-10 16:24 | XMS_ITS | Encounter Summary ---
Author Organization [facility] Address [address] [place] [address] Care Team Providers Care Classroom Aide Name Role Phone Areli Gurrola MD Primary Care Provider Encounter Details Date Type Department Care Team (Late st Contact Info) Description 04/11/1999 Outpatient Historical [facility] Social History Tobacco Use Types Packs/Day Years Used Date Smoking Tobacco: Never Assessed Comments Unknown Sex and Gender Information Value Date Recorded Sex Assigned at Not on file Legal Sex Female 3:40 AM FIELD CROP II FARMWORKER Gender Identity Not on file Sexual Orientation Not on file documented as of this encounter Plan of Treatment Not on file documented as of this encounter Visit Diagnoses Not on filedocumented in this encounter Additional Health Concerns Infection Onset Date Last Indicated Resolved Time R/O COVID-19 01/31/2020 01/31/2020 02/02/2020 10:3 2 AM CDT documented as of this encounter Care Teams Classroom Aide Relationship Specialty Start Date End Date Areli Gurrola MD [address] [place] [address] PCP - General Specialist 08/12/19 documented as of this encounter
--- OUTSIDE RECORDS SUMMARY | 2025-01-10 16:24 | XMS_ITS | Encounter Summary ---
Author Organization [facility] Address [address] [place] [address] Care Team Providers Care Business Services Director Name Role Phone Areli Gurrola MD Primary Care Provider Encounter Details Date Type Department Care Team (Late st Contact Info) Description 04/11/1999 Outpatient Historical [facility] Social History Tobacco Use Types Packs/Day Years Used Date Smoking Tobacco: Never Assessed Comments Unknown Sex and Gender Information Value Date Recorded Sex Assigned at Not on file Legal Sex Female 3:40 AM ELECTRICAL SUPERVISOR Gender Identity Not on file Sexual Orientation Not on file documented as of this encounter Plan of Treatment Not on file documented as of this encounter Visit Diagnoses Not on filedocumented in this encounter Additional Health Concerns Infection Onset Date Last Indicated Resolved Time R/O COVID-19 01/31/2020 01/31/2020 02/02/2020 10:3 2 AM CDT documented as of this encounter Care Teams Business Services Director Relationship Specialty Start Date End Date Areli Gurrola MD [address] [place] [address] PCP - General Specialist 08/12/19 documented as of this encounter
--- OUTSIDE RECORDS SUMMARY | 2025-01-10 16:24 | XMS_ITS | Encounter Summary ---
Author Organization [facility] Address [address] [place] [address] Care Team Providers Care Supervisory Training Specialist Name Role Phone Areli Gurrola MD Primary Care Provider Encounter Details Date Type Department Care Team (Late st Contact Info) Description 03/18/1999 Outpatient Historical [facility] Social History Tobacco Use Types Packs/Day Years Used Date Smoking Tobacco: Never Assessed Comments Unknown Sex and Gender Information Value Date Recorded Sex Assigned at Not on file Legal Sex Female 3:40 AM CARDIOVASCULAR TECHNOLOGIST Gender Identity Not on file Sexual Orientation Not on file documented as of this encounter Plan of Treatment Not on file documented as of this encounter Visit Diagnoses Not on filedocumented in this encounter Additional Health Concerns Infection Onset Date Last Indicated Resolved Time R/O COVID-19 01/31/2020 01/31/2020 02/02/2020 10:3 2 AM CDT documented as of this encounter Care Teams Supervisory Training Specialist Relationship Specialty Start Date End Date Areli Gurrola MD [address] [place] [address] PCP - General Specialist 08/12/19 documented as of this encounter
--- OUTSIDE RECORDS SUMMARY | 2025-01-10 16:24 | XMS_ITS | Encounter Summary ---
Author Organization [facility] Address [address] [place] [address] Care Team Providers Care Secretary Board Of Commissioners Name Role Phone Areli Gurrola MD Primary Care Provider Encounter Details Date Type Department Care Team (Latest Contact Info) Description 09/29/1999 Outpatient Historical [facility] [address] [place] [address] Trell York MD [address] [place] [address] Obesity, unspecified (Primary Dx); Lumbago Social History Tobacco Use Types Packs/Day Years Used Date Smoking Tobacco: Never Assessed Comments Unknown Sex and Gender Information Value Date Recorded Sex Assigned at Not on file Legal Sex Female 3:40 AM MIDWIFE Gender Identity Not on file Sexual Orientation Not on file documented as of this encounter Plan of Treatment Not on file documented as of this encounter Visit Diagnoses Diagnosis Obesity, unspecified- Primary Lumbago documented in this encounter Additional Health Concerns Infection Onset Date Last Indicated Resolved Time R/O COVID-19 01/31/2020 01/31/2020 02/02/2020 10:3 2 AM CDT documented as of this encounter Care Teams Secretary Board Of Commissioners Relationship Specialty Start Date End Date Areli Gurrola MD [address] [facility] [place] [address] PCP - General Specialist 08/12/19 documented as of this encounter
--- OUTSIDE RECORDS SUMMARY | 2025-01-10 16:24 | XMS_ITS | Encounter Summary ---
Author Organization [facility] Address [address] [place] [address] Care Team Providers Care Layboy Tender Name Role Phone Areli Gurrola MD Primary Care Provider Encounter Details Date Type Department Care Team (Latest Contact Info) Description 03/23/1999 Outpatient [facility] [address] [place] [address] Alumno, Gibran Lynn MD [address] [place] [address] Unspecified viral infection, in conditions classified elsewhere and of unspecified site (Primary Dx); Sprain and strain of other specified sites of shoulder and upper arm; Tobacco use disorder Social History Tobacco Use Types Packs/Day Years Used Date Smoking Tobacco: Never Assessed Comments Unknown Sex and Gender Information Value Date Recorded Sex Assigned at Not on file Legal Sex Female 3:40 AM CREAMERY WORKER Gender Identity Not on file Sexual [...] documented as of this encounter Care Teams Layboy Tender Relationship Specialty Start Date End Date Areli Gurrola MD [address] [place] [address] PCP - General Specialist 08/12/19 documented as of this encounter
--- OUTSIDE RECORDS SUMMARY | 2025-01-10 16:24 | XMS_ITS | Encounter Summary ---
Author Organization [facility] Address [address] [place] [address] Care Team Providers Care Rn Hedis Name Role Phone Areli Gurrola MD Primary Care Provider Encounter Details Date Type Department Care Team (Late st Contact Info) Description 04/14/1999 Outpatient Historical [facility] Social History Tobacco Use Types Packs/Day Years Used Date Smoking Tobacco: Never Assessed Comments Unknown Sex and Gender Information Value Date Recorded Sex Assigned at Not on file Legal Sex Female 3:40 AM ARTIST'S MANAGER Gender Identity Not on file Sexual Orientation Not on file documented as of this encounter Plan of Treatment Not on file documented as of this encounter Visit Diagnoses Not on filedocumented in this encounter Additional Health Concerns Infection Onset Date Last Indicated Resolved Time R/O COVID-19 01/31/2020 01/31/2020 02/02/2020 10:3 2 AM CDT documented as of this encounter Care Teams Rn Hedis Relationship Specialty Start Date End Date Areli Gurrola MD [address] [place] [address] PCP - General Specialist 08/12/19 documented as of this encounter
--- OUTSIDE RECORDS SUMMARY | 2025-01-10 16:24 | XMS_ITS | Encounter Summary ---
Author Organization [facility] Address [address] [place] [address] Care Team Providers Care Operations Staff Specialist Security Name Role Phone Areli Gurrola MD Primary Care Provider Encounter Details Date Type Department Care Team (Late st Contact Info) Description 03/28/1999 Outpatient Historical [facility] Social History Tobacco Use Types Packs/Day Years Used Date Smoking Tobacco: Never Assessed Comments Unknown Sex and Gender Information Value Date Recorded Sex Assigned at Not on file Legal Sex Female 3:40 AM STONEMASON HELPER Gender Identity Not on file Sexual Orientation Not on file documented as of this encounter Plan of Treatment Not on file documented as of this encounter Visit Diagnoses Not on filedocumented in this encounter Additional Health Concerns Infection Onset Date Last Indicated Resolved Time R/O COVID-19 01/31/2020 01/31/2020 02/02/2020 10:3 2 AM CDT documented as of this encounter Care Teams Operations Staff Specialist Security Relationship Specialty Start Date End Date Areli Gurrola MD [address] [place] [address] PCP - General Specialist 08/12/19 documented as of this encounter
--- OUTSIDE RECORDS SUMMARY | 2025-01-10 16:24 | XMS_ITS | Encounter Summary ---
Author Organization [facility] Address [address] [place] [address] Care Team Providers Care Sintering Plant Supervisor Name Role Phone Areli Gurrola MD Primary Care Provider Encounter Details Date Type Department Care Team (Late st Contact Info) Description 04/07/1999 Outpatient Historical [facility] Social History Tobacco Use Types Packs/Day Years Used Date Smoking Tobacco: Never Assessed Comments Unknown Sex and Gender Information Value Date Recorded Sex Assigned at Not on file Legal Sex Female 3:40 AM DEADENER Gender Identity Not on file Sexual Orientation Not on file documented as of this encounter Plan of Treatment Not on file documented as of this encounter Visit Diagnoses Not on filedocumented in this encounter Additional Health Concerns Infection Onset Date Last Indicated Resolved Time R/O COVID-19 01/31/2020 01/31/2020 02/02/2020 10:3 2 AM CDT documented as of this encounter Care Teams Sintering Plant Supervisor Relationship Specialty Start Date End Date Areli Gurrola MD [address] [place] [address] PCP - General Specialist 08/12/19 documented as of this encounter
--- OUTSIDE RECORDS SUMMARY | 2025-01-10 16:24 | XMS_ITS | Encounter Summary ---
Author Organization [facility] Address [address] [facility] Attn: [place] [address] Care Team Providers Care Production Laborer Name Role Phone Areli Gurrola MD Primary Care Provider Encounter Details Date Type Department Care Team (Late st Contact Info) Description 08/24/1999 Outpatient Historical Joseph Ramos MD [address] [place] [address] Social History Tobacco Use Types Packs/Day Years Used Date Smoking Tobacco: Never Assessed Comments Unknown Sex and Gender Information Value Date Recorded Sex Assigned at Not on file Legal Sex Female 3:40 AM INDUSTRIAL ECOLOGY TECHNICIAN Gender Identity Not on file Sexual Orientation Not on file documented as of this encounter Plan of Treatment Not on file documented as of this encounter Visit Diagnoses Not on filedocumented in this encounter Additional Health Concerns Infection Onset Date Last Indicated Resolved Time R/O COVID-19 01/31/2020 01/31/2020 02/02/2020 10:3 2 AM CDT documented as of this encounter Care Teams Production Laborer Relationship Specialty Start Date End Date Areli Gurrola MD [address] [place] [address] PCP - General Specialist 08/12/19 documented as of this encounter
--- OUTSIDE RECORDS SUMMARY | 2025-01-10 16:24 | XMS_ITS | Encounter Summary ---
Author Organization [facility] Address [address] [facility] Attn: [place] [address] Care Team Providers Care Psych Assistant Name Role Phone Areli Gurrola MD [...] on file Legal Sex Female 3:40 AM NAILING MACHINE OPERATOR AUTOMATIC Gender Identity Not on file Sexual Orientation Not on file documented as of this encounter Plan of Treatment Not on file documented as of this encounter Visit Diagnoses Not on filedocumented in this encounter Additional Health Concerns Infection Onset Date Last Indicated Resolved Time R/O COVID-19 01/31/2020 01/31/2020 02/02/2020 10:3 2 AM CDT documented as of this encounter Care Teams Psych Assistant Relationship Specialty Start Date End Date Areli Gurrola MD [address] [place] [address] PCP - General Specialist 08/12/19 documented as of this encounter
--- OUTSIDE RECORDS SUMMARY | 2025-01-10 16:24 | XMS_ITS | Encounter Summary ---
Author Organization [facility] Address [address] [place] [address] Care Team Providers Care Supervisor Continuous Weld Pipe Mill Name Role Phone Areli Gurrola MD Primary Care Provider Encounter Details Date Type Department Care Team (Late st Contact Info) Description 03/31/1999 Outpatient Historical HIS [facility] Social History Tobacco Use Types Packs/Day Years Used Date Smoking Tobacco: Never Assessed Comments Unknown Sex and Gender Information Value Date Recorded Sex Assigned at Not on file Legal Sex Female 3:40 AM LODGE SALES ASSOCIATE Gender Identity Not on file Sexual Orientation Not on file documented as of this encounter Plan of Treatment Not on file documented as of this encounter Visit Diagnoses Not on filedocumented in this encounter Additional Health Concerns Infection Onset Date Last Indicated Resolved Time R/O COVID-19 01/31/2020 01/31/2020 02/02/2020 10:3 2 AM CDT documented as of this encounter Care Teams Supervisor Continuous Weld Pipe Mill Relationship Specialty Start Date End Date Areli Gurrola MD [address] [place] [address] PCP - General Specialist 08/12/19 documented as of this encounter
--- OUTSIDE RECORDS SUMMARY | 2025-01-10 16:24 | XMS_ITS | Encounter Summary ---
Author Organization [facility] Address [address] [place] [address] Care Team Providers Care Washing Machine Loader And Puller Name Role Phone Areli Gurrola MD Primary Care Provider Encounter Details Date Type Department Care Team (Late st Contact Info) Description 03/31/1999 Outpatient [facility] Social History Tobacco Use Types Packs/Day Years Used Date Smoking Tobacco: Never Assessed Comments Unknown Sex and Gender Information Value Date Recorded Sex Assigned at Not on file Legal Sex Female 3:40 AM ACADEMIC ADVISOR Gender Identity Not on file Sexual Orientation Not on file documented as of this encounter Plan of Treatment Not on file documented as of this encounter Visit Diagnoses Not on filedocumented in this encounter Additional Health Concerns Infection Onset Date Last Indicated Resolved Time R/O COVID-19 01/31/2020 01/31/2020 02/02/2020 10:3 2 AM CDT documented as of this encounter Care Teams Washing Machine Loader And Puller Relationship Specialty Start Date End Date Areli Gurrola MD [address] [place] [address] PCP - General Specialist 08/12/19 documented as of this encounter
--- OUTSIDE RECORDS SUMMARY | 2025-01-10 16:24 | XMS_ITS | Encounter Summary ---
Author Organization [facility] Address [address] [place] [address] Care Team Providers Care Applications Packager Name Role Phone Areli Gurrola MD Primary Care Provider Encounter Details Date Type Department Care Team (Latest Contact Info) Description 10/20/1999 Outpatient Historical [facility] Joseph Ramos MD [address] [place] [address] Carpal tunnel syndrome (Primary Dx) Social History Tobacco Use Types Packs/Day Years Used Date Smoking Tobacco: Never Assessed Comments Unknown Sex and Gender Information Value Date Recorded Sex Assigned at Not on file Legal Sex Female 3:40 AM LANDSCAPE HORTICULTURE INSTRUCTOR Gender Identity Not on file Sexual [...] documented as of this encounter Care Teams Applications Packager Relationship Specialty Start Date End Date Areli Gurrola MD [address] [facility] [place] [address] PCP - General Specialist 08/12/19 documented as of this encounter
--- OUTSIDE RECORDS SUMMARY | 2025-01-10 16:24 | XMS_ITS | Encounter Summary ---
Author Organization [facility] Address [address] [place] [address] Care Team Providers Care Grader Meat Name Role Phone Areli Gurrola MD Primary Care Provider Encounter Details Date Type Department Care Team (Latest Contact Info) Description 09/01/1999 Outpatient Historical [facility] Joseph Ramos MD [address] [place] [address] Pain in joint, hand (Primary Dx); Follow-up examination following surgery Social History Tobacco Use Types Packs/Day Years Used Date Smoking Tobacco: Never Assessed Comments Unknown Sex and Gender Information Value Date Recorded Sex Assigned at Not on file Legal Sex Female 3:40 AM INSTALLATION HELPER Gender Identity Not on file Sexual [...] documented as of this encounter Care Teams Grader Meat Relationship Specialty Start Date End Date Areli Gurrola MD [address] [place] [address] PCP - General Specialist 08/12/19 documented as of this encounter
--- OUTSIDE RECORDS SUMMARY | 2025-01-10 16:24 | XMS_ITS | Encounter Summary ---
Author Organization [facility] Address [address] [place] [address] Care Team Providers Care Auto Leasing Manager Name Role Phone Areli Gurrola MD Primary Care Provider Encounter Details Date Type Department Care Team (Late st Contact Info) Description 03/30/1999 Outpatient Historical [facility] Social History Tobacco Use Types Packs/Day Years Used Date Smoking Tobacco: Never Assessed Comments Unknown Sex and Gender Information Value Date Recorded Sex Assigned at Not on file Legal Sex Female 3:40 AM LOGGING ASSISTANT Gender Identity Not on file Sexual Orientation Not on file documented as of this encounter Plan of Treatment Not on file documented as of this encounter Visit Diagnoses Not on filedocumented in this encounter Additional Health Concerns Infection Onset Date Last Indicated Resolved Time R/O COVID-19 01/31/2020 01/31/2020 02/02/2020 10:3 2 AM CDT documented as of this encounter Care Teams Auto Leasing Manager Relationship Specialty Start Date End Date Areli Gurrola MD [address] [place] [address] PCP - General Specialist 08/12/19 documented as of this encounter
--- OUTSIDE RECORDS SUMMARY | 2025-01-10 16:24 | XMS_ITS | Encounter Summary ---
Author Organization [facility] Address [address] [place] [address] Care Team Providers Care Pet Nutrition Specialist Name Role Phone Areli Gurrola MD Primary Care Provider Encounter Details Date Type Department Care Team (Latest Contact Info) Description 10/27/1999 Outpatient Historical [facility] [address] [place] [address] Trell York MD [address] [place] [phone] Lumbago (Primary Dx) Social History Tobacco Use Types Packs/Day Years Used Date Smoking Tobacco: Never Assessed Comments Unknown Sex and Gender Information Value Date Recorded Sex Assigned at Not on file Legal Sex Female 3:40 AM TOLL LINEMAN Gender Identity Not on file Sexual Orientation Not on file documented as of this encounter Plan of Treatment Not on file documented as of this encounter Visit Diagnoses Diagnosis Lumbago- Primary documented in this encounter Additional Health Concerns Infection Onset Date Last Indicated Resolved Time R/O COVID-19 01/31/2020 01/31/2020 02/02/2020 10:3 2 AM CDT documented as of this encounter Care Teams Pet Nutrition Specialist Relationship Specialty Start Date End Date Areli Gurrola MD [address] [facility] [place] [address] PCP - General Specialist 08/12/19 documented as of this encounter
--- OUTSIDE RECORDS SUMMARY | 2025-01-10 16:24 | XMS_ITS | Encounter Summary ---
Author Organization [facility] Address [address] [place] [address] Care Team Providers Care French Pastry Cook Name Role Phone Areli Gurrola MD Primary Care Provider Encounter Details Date Type Department Care Team (Late st Contact Info) Description 03/30/1999 Outpatient Historical [facility] Social History Tobacco Use Types Packs/Day Years Used Date Smoking Tobacco: Never Assessed Comments Unknown Sex and Gender Information Value Date Recorded Sex Assigned at Not on file Legal Sex Female 3:40 AM RESIDENCE DIRECTOR Gender Identity Not on file Sexual Orientation Not on file documented as of this encounter Plan of Treatment Not on file documented as of this encounter Visit Diagnoses Not on filedocumented in this encounter Additional Health Concerns Infection Onset Date Last Indicated Resolved Time R/O COVID-19 01/31/2020 01/31/2020 02/02/2020 10:3 2 AM CDT documented as of this encounter Care Teams French Pastry Cook Relationship Specialty Start Date End Date Areli Gurrola MD [address] [place] [address] PCP - General Specialist 08/12/19 documented as of this encounter
--- OUTSIDE RECORDS SUMMARY | 2025-01-10 16:24 | XMS_ITS | Encounter Summary ---
Author Organization [facility] Address [address] [place] [address] Care Team Providers Care Steam Fitter Supervisor Maintenance Name Role Phone Areli Gurrola MD Primary Care Provider Encounter Details Date Type Department Care Team (Late st Contact Info) Description 04/14/1999 Outpatient Historical [facility] Social History Tobacco Use Types Packs/Day Years Used Date Smoking Tobacco: Never Assessed Comments Unknown Sex and Gender Information Value Date Recorded Sex Assigned at Not on file Legal Sex Female 3:40 AM SPECTRAL SCIENTIST Gender Identity Not on file Sexual Orientation Not on file documented as of this encounter Plan of Treatment Not on file documented as of this encounter Visit Diagnoses Not on filedocumented in this encounter Additional Health Concerns Infection Onset Date Last Indicated Resolved Time R/O COVID-19 01/31/2020 01/31/2020 02/02/2020 10:3 2 AM CDT documented as of this encounter Care Teams Steam Fitter Supervisor Maintenance Relationship Specialty Start Date End Date Areli Gurrola MD [address] [place] [address] PCP - General Specialist 08/12/19 documented as of this encounter
--- OUTSIDE RECORDS SUMMARY | 2025-01-10 16:24 | XMS_ITS | Encounter Summary ---
Author Organization [facility] Address [address] [place] [address] Care Team Providers Care Septic Tank Setter Name Role Phone Areli Gurrola MD Primary Care Provider Encounter Details Date Type Department Care Team (Latest Contact Info) Description 04/11/2006 Outpatient Historical [facility] [address] [place] [address] Trell [place] MD [address] [place] [phone] Unspecified Essential Hypertension (Primary Dx); Dysthymic Disorder; Insomnia, Unspecified; Mononeuritis of Unspecified Site Social History Tobacco Use Types Packs/Day Years Used Date Smoking Tobacco: Never Assessed Comments Unknown Sex and Gender Information Value Date Recorded Sex Assigned at Not on file Legal Sex Female 3:40 AM CUP TRIMMING MACHINE OPERATOR Gender Identity Not on file [...] documented as of this encounter Care Teams Septic Tank Setter Relationship Specialty Start Date End Date Areli Gurrola MD [address] [facility] [place] [address] PCP - General Specialist 08/12/19 documented as of this encounter
--- OUTSIDE RECORDS SUMMARY | 2025-01-10 16:24 | XMS_ITS | Encounter Summary ---
Author Organization [facility] Address [address] [place] [address] Care Team Providers Care Cotton Grader Name Role Phone Areli Gurrola MD Primary Care Provider Encounter Details Date Type Department Care Team (Late st Contact Info) Description 04/07/1999 Outpatient Historical HIS [facility] Social History Tobacco Use Types Packs/Day Years Used Date Smoking Tobacco: Never Assessed Comments Unknown Sex and Gender Information Value Date Recorded Sex Assigned at Not on file Legal Sex Female 3:40 AM STAVE JOINTER Gender Identity Not on file Sexual Orientation Not on file documented as of this encounter Plan of Treatment Not on file documented as of this encounter Visit Diagnoses Not on filedocumented in this encounter Additional Health Concerns Infection Onset Date Last Indicated Resolved Time R/O COVID-19 01/31/2020 01/31/2020 02/02/2020 10:3 2 AM CDT documented as of this encounter Care Teams Cotton Grader Relationship Specialty Start Date End Date Areli Gurrola MD [address] [place] [address] PCP - General Specialist 08/12/19 documented as of this encounter
--- OUTSIDE RECORDS SUMMARY | 2025-01-10 16:24 | XMS_ITS | Encounter Summary ---
Author Organization [facility] Address [address] [place] [address] Care Team Providers Care Risk Control Product Liability Director Name Role Phone Areli Gurrola MD Primary Care Provider Encounter Details Date Type Department Care Team (Latest Contact Info) Description 09/08/1999 Outpatient Historical [facility] [address] [place] [address] Trell [place] MD [address] [place] [phone] Lumbago (Primary Dx); Obesity, unspecified Social History Tobacco Use Types Packs/Day Years Used Date Smoking Tobacco: Never Assessed Comments Unknown Sex and Gender Information Value Date Recorded Sex Assigned at Not on file Legal Sex Female 3:40 AM DUMP MOTOR OPERATOR Gender Identity Not on file Sexual [...] documented as of this encounter Care Teams Risk Control Product Liability Director Relationship Specialty Start Date End Date Areli Gurrola MD [address] [facility] [place] [address] PCP - General Specialist 08/12/19 documented as of this encounter
--- OUTSIDE RECORDS SUMMARY | 2025-01-10 16:24 | XMS_ITS | Encounter Summary ---
Author Organization [facility] Address [address] [place] [address] Care Team Providers Care Head Of Sales And Marketing Name Role Phone Areli Gurrola MD Primary Care Provider Encounter Details Date Type Department Care Team (Late st Contact Info) Description 04/05/1999 Outpatient Historical [facility] Social History Tobacco Use Types Packs/Day Years Used Date Smoking Tobacco: Never Assessed Comments Unknown Sex and Gender Information Value Date Recorded Sex Assigned at Not on file Legal Sex Female 3:40 AM INSPECTOR CONVEYOR LINE Gender Identity Not on file Sexual Orientation Not on file documented as of this encounter Plan of Treatment Not on file documented as of this encounter Visit Diagnoses Not on filedocumented in this encounter Additional Health Concerns Infection Onset Date Last Indicated Resolved Time R/O COVID-19 01/31/2020 01/31/2020 02/02/2020 10:3 2 AM CDT documented as of this encounter Care Teams Head Of Sales And Marketing Relationship Specialty Start Date End Date Areli Gurrola MD [address] [place] [address] PCP - General Specialist 08/12/19 documented as of this encounter
--- OUTSIDE RECORDS SUMMARY | 2025-01-10 16:24 | XMS_ITS | Encounter Summary ---
Author Organization [facility] Address [address] [place] [address] Care Team Providers Care Product Safety Tester Name Role Phone Areli Gurrola MD Primary Care Provider Encounter Details Date Type Department Care Team (Late st Contact Info) Description 03/25/1999 Outpatient Historical HIS [facility] Social History Tobacco Use Types Packs/Day Years Used Date Smoking Tobacco: Never Assessed Comments Unknown Sex and Gender Information Value Date Recorded Sex Assigned at Not on file Legal Sex Female 3:40 AM BUSINESS CONSULT Gender Identity Not on file Sexual Orientation Not on file documented as of this encounter Plan of Treatment Not on file documented as of this encounter Visit Diagnoses Not on filedocumented in this encounter Additional Health Concerns Infection Onset Date Last Indicated Resolved Time R/O COVID-19 01/31/2020 01/31/2020 02/02/2020 10:3 2 AM CDT documented as of this encounter Care Teams Product Safety Tester Relationship Specialty Start Date End Date Areli Gurrola MD [address] [place] [address] PCP - General Specialist 08/12/19 documented as of this encounter
--- NOTE | 2025-01-10 16:25 | W.ED.GENADLT ---
HPI - General Adult General: Chief complaint: General Medical Stated complaint: huffing canned air Time Seen by Provider: 01/10/25 16:13 Source: patient and EMS Mode of arrival: EMS Limitations: no limitations History of Present Illness: 59-year-old female very well-known to the ER has long history anxiety states she has been very anxious over the last 2 days states she has been huffing aerosol cans to try to help with her anxiety states that she is feeling overwhelmed but denies any suicidal ideations denies any homicidal ideations. Related Data Home Medications ?Medication ?Instructions ?Recorded ?Confirmed albuterol sulfate 90 mcg/actuation 2 puff inhalation Q4H PRN 04/04/24 01/07/25 aerosol inhaler Shortness Of Breath Or Wheezing ziprasidone HCl 20 mg capsule 20 mg PO BID PRN Anxiety 07/23/24 01/07/25 buspirone 5 mg tablet 5 mg PO BID PRN Anxiety 09/11/24 01/07/25 tizanidine 4 mg capsule 4 mg PO Q8H PRN Spasms 09/11/24 01/07/25 epinephrine 0.3 mg/0.3 mL See Rx Instructions .Route .COMPLEX 11/24/24 01/07/25 injection, auto-injector furosemide 20 mg tablet 20 mg PO QAM PRN Edema 11/24/24 01/07/25 nitroglycerin 0.4 mg sublingual See Rx Instructions .Route .COMPLEX 11/24/24 01/07/25 tablet zolpidem 5 mg tablet (Ambien) 4 mg PO DAILY 01/07/25 01/07/25 Previous Rx's ?Medication ?Instructions ?Recorded hydroxyzine HCl 25 mg tablet 25 mg PO Q8H PRN anxiety #10 tabs 07/23/24 multivitamin 1 tab PO DAILY #30 tabs 09/11/24 potassium chloride 10 mEq 10 meq PO DAILY diuretic use #30 10/09/24 tablet,extended release (Klor-Con) tabs ciprofloxacin HCl 500 mg tablet 500 mg PO Q12H #14 tabs 11/26/24 (Cipro) hydroxyzine pamoate 25 mg capsule 25 mg PO BID PRN anxiety #14 caps 01/10/25 Allergies Allergy/AdvReac Type Severity Reaction Status Date / Time venom-wasp Allergy Severe ALGY-Anaphy Verified 01/07/25 10:46 laxis Sulfa (Sulfonamide Allergy Intermediate Hives Verified 01/07/25 10:46 Antibiotics) aspirin Allergy Unknown Unknown Verified 01/07/25 10:46 NSAIDS (Non-Steroidal Allergy Unknown Unknown Verified 01/07/25 10:46 Anti-Inflamma sumatriptan (From Imitrex) Allergy Unknown Unknown Verified 01/07/25 10:46 ibuprofen (From NeoProfen Allergy UNKNOWN Verified 01/07/25 10:46 (ibuprofen lysn)(PF)) metoclopramide (From Reglan) Allergy ALGY-Joint Verified 01/07/25 10:46 Pain bupropion (From Wellbutrin) AdvReac Intermediate ALGY-Rash Verified 01/07/25 10:46 prednisone AdvReac Intermediate Heart rate Verified 01/07/25 10:46 was heavy. Toponas sick. Cephalosporins AdvReac Unknown Unknown Verified 01/07/25 10:46 Review of Systems Psych: Reports: anxiety PFSH ED PFSH: Medical History PTSD (post-traumatic stress disorder) Suicidal ideation Cannabis dependence, episodic use Major depressive disorder, recurrent, severe with psychotic symptoms Nicotine dependence due to vaping tobacco product Vaping nicotine Chronic post-traumatic stress disorder Alcohol use disorder, severe, dependence Psychiatric care Uncontrolled type 2 diabetes with neuropathy Sacroiliitis H/O Belkys-Valenzuela syndrome (~07/2019) EGD at [facility]. EGD 10/26 negative. Chronic back pain Congestive heart failure Diabetes mellitus MONTANO (nonalcoholic steatohepatitis) Borderline personality disorder Bilateral primary osteoarthritis of hip Surgical History History of hysterectomy History of esophagogastroduodenoscopy H/O colonoscopy H/O cervical spine surgery Family History Son Suicide September 2019 Other Cancer Hypertension Psychiatric illness Social History Smoking and tobacco/nicotine status: current every day tobacco/nicotine user cigarettes [ Other cigarette details: When vape breaks she returns to cigarettes] and e-cigarettes E-Cigarette Details: vaporizer device and with nicotine E-cig/vape details: 6000 puffs in each device, uses 3 per month Quit status (tobacco/nicotine): not considering quitting Second hand smoke exposure: Yes Alcohol intake: current Alcohol intake frequency: few times a month Alcohol type: hard liquor Substance/Drug Use: current Substance/Drug use frequency: daily Other substance/drug use details: medical card Adopted: No Caregiver/support person: Yes (cleans and runs errands) Lives independently: Yes Household members: none Housing: Apartment Marital status: Single Number of children: 2 Number of grandchildren: 0 Highest education level completed: Associate Degree: Occupational, Technical, Vocational Program Education level details: [facility] service: No Current occupational status: disabled Current occupational exposures/hazards: No Pets and animals: Yes Pets & animals: cat(s) Leisure activites: music, games and other Leisure activities details: watch a lot of movies Sexually active: No Do you think of yourself as: Straight/Heterosexual Current gender identity: Female Aparna/Jehovah'S Witness: Uatsdin Special aparna needs: No Agree to transfusion: Yes Female Reproductive History: Para: 2 Spontaneous abortions: Yes (10) Physical Exam Const: COMMON NORMALS: no acute distress, patient oriented x3 and healthy appearing HENMT: COMMON NORMALS: normocephalic and atraumatic HEAD & SCALP: normocephalic and atraumatic Neck/C-Spine: COMMON NORMALS: full ROM and supple Chest: COMMONS NORMALS: normal inspection of the chest Resp: COMMON NORMALS: normal respiratory effort Cardio: COMMON NORMALS: regular rate, regular rhythm and No murmurs present (Cardio) RATE: regular rate RHYTHM: regular rhythm Extremity: COMMON NORMALS: normal to inspection and full ROM Neuro: COMMON NORMALS: patient oriented x3, moves all extremities and no focal motor deficits Psych: COMMON NORMALS: mental status grossly normal, Normal thought process present and cooperative THOUGHT PROCESS: Normal thought process present THOUGHT CONTENT: No Suicidality present and No Homicidality present Skin: COMMON NORMALS: no rashes or lesions noted and no wounds GENERAL SKIN EXAM: no rashes or lesions noted Course Vital Signs: Vital signs: Vital Signs Temperature 98.1 F 01/10/25 16:17 Pulse Rate 82 01/10/25 16:33 Respiratory Rate 16 01/10/25 16:17 Blood Pressure 149/81 01/10/25 16:33 Pulse Oximetry 99 01/10/25 16:33 Oxygen Delivery Me thod Room Air 10/04/25 16:17 MDM - General Adult Medical Decision Making Patient presents with anxiety she is not suicidal homicidal does not want psych admission she has no signs of any overdose is well-appearing here with normal vitals did give her Valium she feels improved will prescribe her Vistaril she is to follow-up with psychiatrist she understands agrees to plan. Medical Records I reviewed the patient's medical records. No radiology studies performed this visit Discharge Plan Discharge Patient Disposition: Home Clinical Impression: Anxiety, Huffing Condition: Stable Prescriptions: New hydroxyzine pamoate 25 mg capsule 25 mg PO BID PRN (Reason: anxiety) Qty: 14 0RF No Action buspirone 5 mg tablet 5 mg PO BID PRN (Reason: Anxiety) Patient Comments: at bedtime tizanidine 4 mg capsule 4 mg PO Q8H PRN (Reason: Spasms) multivitamin Tablet 1 tab PO DAILY Qty: 30 2RF zolpidem [Ambien] 5 mg tablet 4 mg PO DAILY potassium chloride [Klor-Con 10] 10 mEq tablet extended release 10 meq PO DAILY Qty: 30 0RF Rx Instructions: with furosemide. albuterol sulfate 90 mcg/actuation HFA aerosol inhaler 2 puff INHALATION Q4H PRN (Reason: Shortness Of Breath Or Wheezing) ziprasidone HCl 20 mg capsule 20 mg PO BID PRN (Reason: Anxiety) hydroxyzine HCl 25 mg tablet 25 mg PO Q8H PRN (Reason: anxiety) Qty: 10 0RF nitroglycerin 0.4 mg tablet, sublingual See Rx Instructions .ROUTE .COMPLEX Rx Instructions: PLACE ONE TABLET UNDER TONGUE NEEDED FOR CHEST PAIN. epinephrine 0.3 mg/0.3 mL auto-injector See Rx Instructions .ROUTE .COMPLEX Rx Instructions: INJECT 1 PEN IN THE MUSCLE ONE TIME DIRECTED. furosemide 20 mg tablet 20 mg PO QAM PRN (Reason: Edema) Rx Instructions: Take one tablet in AM along with potassium 10mEq tablet. ciprofloxacin HCl [Cipro] 500 mg tablet 500 mg PO Q12H Qty: 14 0RF Discharge Orders: Discharge ED (Routine); Ordered 01/10/25 Ordered By: Carmela Haro Referrals: Aida Vincent PA [Primary Care Provider, Physicians Java Software Engineer] - 4-7 days Discharge Diet: Advance as tolerated Discharge Activity: Resume usual activity Patient Instructions: Anxiety (ED) Print Language: Slovenian Coding Level of Care Code ED Merchandising Specialist for Rober Arellano
--- OUTSIDE RECORDS SUMMARY | 2025-01-10 16:25 | XMS_ITS | Patient Health Record ---
Author Organization [facility] Address [address] [place] [address] Care Team Providers Care Legal Internship Name Role Phone Joseph Lewis MD Primary Care Provider Zane Joiner Unavailable [phone] ELROY BOOTHE Unavailable Unavailable Migration, Provider Unavailable Unavailable Reason For Referral Reason eval and treat Diagnosis 1 Radiculopathy, lumba r region (M54.16) Referring Provider First Name Aida Referring Provider Last Name Carlton Referring Provider Speciality Physician Magazine Writer Referred Organization [facility] Referred Provider Tam Fairchild Referred Address [address], Referred Provider Specialty Intervention al Pain Medicine [...] drug interaction check* Fluticasone Furoate 27.5mcg/1spray Nasal [place] Use 2 spray(s) in each nostril daily 05/28/2008 Active Immunizations Vaccine Route Administration Date Status Comme nts Influenza (whole), CPT 53241 Inactive Unknown 10/15/2018 Administered Social History Social [...] Severe recurrent major depression without psychotic features (38886297) Major depressive disorder, 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.2) Active confirmed Problem Severe recurrent major depression with psychotic features (54851978) Major depressive disorder, recurrent, 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) Active confirmed Problem Adjustment disorder with mixed disturbance of emotions AND conduct (27409581) Adjustment disorder with mixed disturbance of emotions and conduct (F43.25) Active confirmed Problem Borderline personality disorder (00035779) Borderline personality disorder (F60.3) Active confirmed Problem Lumbar radiculopathy (968977376) Radiculopathy, lumbar region (M54.16) Active confirmed Problem History of psychiatric disorder (902476522) Personal history of other mental and behavioral disorders (Z86.59) Active confirmed Problem Alcohol abuse (67218726) Alcohol abuse (F10.10) Active confirmed Problem Major depression, single episode (76797325) Depression, major (F32.9) Active confirmed Problem Fibromyalgia (624832997) Fibromyalgia (729.1) 05/28/19 09 Problem resolved confirmed [id number] 911- Problem 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 confirmed Problem Low back pain (600222808) Low back pain (724.2) 05/28/19 09 Active confirmed Luke-985 911- Problem Chronic pain (59770420) Chronic pain (G89.29) Active confirmed Problem Polysubstance abuse (140885023) Polysubstance abuse (F19.10) Active confirmed Problem Cannabis abuse (66949981) Cannabis abuse (F12.10) Active confirmed Encounters Encounter Location Date Provider Diagnosis Migrated_Facility 0 0 02/02/2024 Provider Migration Migrated_Facility 0 0 02/03/2024 Provider Migration Plan Of Treatment No Information Insurance Providers Payer Name Payer Address Payer Phone Subscriber Number Group Number Insured Name Patient Relationship to Insured Coverage Start Date Coverage End Date [facility] [address] [address] [place] [address] [id number] Kay Gamboa Self - patient is the insured [place] Medicaid [address] [place] [address] 1923 Kay Gamboa Self - patient is the insured Medical (General) History Surgical History Surgery Date(Month/Year) Appendectomy Biopsy of Bone Marrow Carpal tunnel surgery Gallbladder surgery Hysterectomy Laminectomy Tonsillectomy
--- OUTSIDE RECORDS SUMMARY | 2025-01-10 16:25 | XMS_ITS | Encounter Summary ---
Author Organization [facility] Address [address] [place] [address] Care Team Providers Care Executive Creative Director Name Role Phone Areli Gurrola MD Primary Care Provider Encounter Details Date Type Department Care Team (Latest Contact Info) Description 09/09/2003 Outpatient Historical [facility] [address] [place] [address] Trell [place] MD [address] [place] [phone] CERVICALGIA (Primary Dx) Social History Tobacco Use Types Packs/Day Years Used Date Smoking Tobacco: Never Assessed Comments Unknown Sex and Gender Information Value Date Recorded Sex Assigned at Not on file Legal Sex Female 3:40 AM EYE CARE PROFESSIONAL Gender Identity Not on file Sexual Orientation Not on file documented as of this encounter Plan of Treatment Not on file documented as of this encounter Visit Diagnoses Diagnosis Cervicalgia- Primary documented in this encounter Additional Health Concerns Infection Onset Date Last Indicated Resolved Time R/O COVID-19 01/31/2020 01/31/2020 02/02/2020 10:3 2 AM CDT documented as of this encounter Care Teams Executive Creative Director Relationship Specialty Start Date End Date Areli Gurrola MD [address] [facility] [place] [address] PCP - General Specialist 08/12/19 documented as of this encounter
--- OUTSIDE RECORDS SUMMARY | 2025-01-10 16:25 | XMS_ITS | Encounter Summary ---
Author Organization [facility] Address [address] [place] [address] Care Team Providers Care General Claims Agent Name Role Phone Areli Gurrola MD Primary Care Provider Encounter Details Date Type Department Care Team (Latest Contact Info) Description 10/11/2005 Outpatient Historical [facility] [address] [place] [address] Trell [place] MD [address] [place] [phone] Dysthymic Disorder (Primary Dx); Lumbago Social History Tobacco Use Types Packs/Day Years Used Date Smoking Tobacco: Never Assessed Comments Unknown Sex and Gender Information Value Date Recorded Sex Assigned at Not on file Legal Sex Female 3:40 AM COMMERCIAL SHRIMPING CAPTAIN Gender Identity Not on file Sexual [...] as of this encounter Care Teams General Claims Agent Relationship Specialty Start Date End Date Areli Gurrola MD [address] [facility] [place] [address] PCP - General Specialist 08/12/19 documented as of this encounter
--- OUTSIDE RECORDS SUMMARY | 2025-01-10 16:25 | XMS_ITS | Encounter Summary ---
Author Organization [facility] Address [address] [place] [address] Care Team Providers Care Mechanical Test Engineer Name Role Phone Areli Gurrola MD Primary Care Provider Encounter Details Date Type Department Care Team (Latest Contact Info) Description 06/22/2003 Outpatient Historical [facility] [address] [place] [address] Trell [place] MD [address] [place] [phone] CHEST PAIN NOS (Primary Dx); ABN INVOLUN MOVEMENT NEC; CERVICALGIA Social History Tobacco Use Types Packs/Day Years Used Date Smoking Tobacco: Never Assessed Comments Unknown Sex and Gender Information Value Date Recorded Sex Assigned at Not on file Legal Sex Female 3: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
--- OUTSIDE RECORDS SUMMARY | 2025-01-10 16:25 | XMS_ITS | Encounter Summary ---
Author Organization [facility] Address [address] [place] [address] Care Team Providers Care Fish Butcher Name Role Phone Areli Gurrola MD Primary Care Provider Encounter Details Date Type Department Care Team (Late st Contact Info) Description 05/14/2003 Outpatient Historical [facility] [address] [place] [address] Roman Law, DO [address] [place] [phone] ACUTE SINUSITIS NOS (Primary Dx) Social History Tobacco Use Types Packs/Day Years Used Date Smoking Tobacco: Never Assessed Comments Unknown Sex and Gender Information Value Date Recorded Sex Assigned at Not on file Legal Sex Female 3:40 AM COLLEGE SPECIALIST Gender Identity Not on file Sexual [...] documented as of this encounter Care Teams Fish Butcher Relationship Specialty Start Date End Date Areli Gurrola MD [address] [place] [address] PCP - General Specialist 08/12/19 documented as of this encounter
--- OUTSIDE RECORDS SUMMARY | 2025-01-10 16:25 | XMS_ITS | Encounter Summary ---
Author Organization [facility] Address [address] [place] [address] Care Team Providers Care Statistical Analyst Name Role Phone Areli Gurrola MD Primary Care Provider Encounter Details Date Type Department Care Team (Latest Contact Info) Description 06/26/2003 Outpatient Historical [facility] Cardiology [facility] [address] [place] [address] Jim Matos MD [address] [address] [place] [address] PRECORDIAL PAIN (Primary Dx) Social History Tobacco Use Types Packs/Day Years Used Date Smoking Tobacco: Never Assessed Comments Unknown Sex and Gender Information Value Date Recorded Sex Assigned at Not on file Legal Sex Female 3:40 AM OCEAN EXPORT COORDINATOR Gender Identity Not on file Sexual Orientation Not on file documented as of this encounter Plan of Treatment Not on file documented as of this encounter Visit Diagnoses Diagnosis Precordial pain- Primary documented in this encounter Additional Health Concerns Infection Onset Date Last Indicated Resolved Time R/O COVID-19 01/31/2020 01/31/2020 02/02/2020 10:3 2 AM CDT documented as of this encounter Care Teams Statistical Analyst Relationship Specialty Start Date End Date Areli Gurrola MD [address] [facility] [address] PCP - General Specialist 08/12/19 documented as of this encounter
--- OUTSIDE RECORDS SUMMARY | 2025-01-10 16:25 | XMS_ITS | Encounter Summary ---
Author Organization [facility] Address [address] [place] [address] Care Team Providers Care Pointer Machine Operator Name Role Phone Areli Gurrola MD Primary Care Provider Encounter Details Date Type Department Care Team (Late st Contact Info) Description 06/24/2003 Outpatient Historical [facility] [place] [address] [place] [address] Shayy Landry MD [address] [address] Social History Tobacco Use Types Packs/Day Years Used Date Smoking Tobacco: Never Assessed Comments Unknown Sex and Gender Information Value Date Recorded Sex Assigned at Not on file Legal Sex Female 3:40 AM ENVIRONMENTAL TECHNICAL OFFICER Gender Identity Not on file Sexual Orientation Not on file documented as of this encounter Plan of Treatment Not on file documented as of this encounter Visit Diagnoses Not on filedocumented in this encounter Additional Health Concerns Infection Onset Date Last Indicated Resolved Time R/O COVID-19 01/31/2020 01/31/2020 02/02/2020 10:3 2 AM CDT documented as of this encounter Care Teams Pointer Machine Operator Relationship Specialty Start Date End Date Areli Gurrola MD [address] [facility] [place] [address] PCP - General Specialist 08/12/19 documented as of this encounter
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
--- OUTSIDE RECORDS SUMMARY | 2025-01-10 16:25 | XMS_ITS | Encounter Summary ---
Author Organization [facility] Address [address] [place] [address] Care Team Providers Care Special Service Representative Name Role Phone Areli Gurrola MD Primary Care Provider Encounter Details Date Type Department Care Team (Latest Contact Info) Description 05/20/2003 Outpatient Historical [facility] [address] [place] [address] Trell York MD [address] [place] [phone] ACUTE BRONCHITIS (Primary Dx) Social History Tobacco Use Types Packs/Day Years Used Date Smoking Tobacco: Never Assessed Comments Unknown Sex and Gender Information Value Date Recorded Sex Assigned at Not on file Legal Sex Female 3:40 AM ALUMINUM POURER Gender Identity Not on file Sexual Orientation Not on file documented as of this encounter Plan of Treatment Not on file documented as of this encounter Visit Diagnoses Diagnosis Acute bronchitis- Primary documented in this encounter Additional Health Concerns Infection Onset Date Last Indicated Resolved Time R/O COVID-19 01/31/2020 01/31/2020 02/02/2020 10:3 2 AM CDT documented as of this encounter Care Teams Special Service Representative Relationship Specialty Start Date End Date Areli Gurrola MD [address] [facility] [place] [address] PCP - General Specialist 08/12/19 documented as of this encounter
--- OUTSIDE RECORDS SUMMARY | 2025-01-10 16:26 | XMS_ITS | Encounter Summary ---
Author Organization [facility] Address [address] [place] [address] Care Team Providers Care Executive Officer Name Role Phone Areli Gurrola MD Primary Care Provider Encounter Details Date Type Department Care Team (Latest Contact Info) Description 07/06/2004 Outpatient [facility] [address] [place] [address] Trell York MD [address] [place] [phone] DYSTHYMIC DISORDER (Primary Dx); BACKACHE NOS; CERVICALGIA Social History Tobacco Use Types Packs/Day Years Used Date Smoking Tobacco: Never Assessed Comments Unknown Sex and Gender Information Value Date Recorded Sex Assigned at Not on file Legal Sex Female 3:40 AM 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
--- OUTSIDE RECORDS SUMMARY | 2025-01-10 16:26 | XMS_ITS | Encounter Summary ---
Author Organization [facility] Address [address] [place] [address] Care Team Providers Care Product Developer Name Role Phone Areli Gurrola MD Primary Care Provider Encounter Details Date Type Department Care Team (Latest Contact Info) Description 10/03/2002 Outpatient [facility] [address] [place] [address] Gordon Cabral MD NO ADDRESS ON FILE METRORRHAGIA (Primary Dx) Social History Tobacco Use Types Packs/Day Years Used Date Smoking Tobacco: Never Assessed Comments Unknown Sex and Gender Information Value Date Recorded Sex Assigned at Not on file Legal Sex Female 3:40 AM DOCUMENT CLERK Gender Identity Not on file Sexual Orientation Not on file documented as of this encounter Plan of Treatment Not on file documented as of this encounter Visit Diagnoses Diagnosis Metrorrhagia- Primary documented in this encounter Additional Health Concerns Infection Onset Date Last Indicated Resolved Time R/O COVID-19 01/31/2020 01/31/2020 02/02/2020 10:3 2 AM CDT documented as of this encounter Care Teams Product Developer Relationship Specialty Start Date End Date Areli Gurrola MD [address] [place] [address] PCP - General Specialist 08/12/19 documented as of this encounter
--- OUTSIDE RECORDS SUMMARY | 2025-01-10 16:26 | XMS_ITS | Encounter Summary ---
Author Organization [facility] Address [address] [place] [address] Care Team Providers Care Rental Car Porter Name Role Phone Areli Gurrola MD Primary Care Provider Encounter Details Date Type Department Care Team (Latest Contact Info) Description 10/22/2002 Outpatient Historical [facility] [address] [place] [address] Gordon Cabral MD NO ADDRESS ON FILE POLYP OF CORPUS UTERI (Primary Dx) Social History Tobacco Use Types Packs/Day Years Used Date Smoking Tobacco: Never Assessed Comments Unknown Sex and Gender Information Value Date Recorded Sex Assigned at Not on file Legal Sex Female 3:40 AM SUPERVISOR RESPIRATORY Gender Identity Not on file Sexual Orientation [...] documented as of this encounter Care Teams Rental Car Porter Relationship Specialty Start Date End Date Areli Gurrola MD [address] [place] [address] PCP - General Specialist 08/12/19 documented as of this encounter
--- OUTSIDE RECORDS SUMMARY | 2025-01-10 16:26 | XMS_ITS | Encounter Summary ---
Author Organization [facility] Address [address] [facility] Attn: [place] [address] Care Team Providers Care Slicing Machine Feeder Name Role Phone Areli Gurrola MD Primary Care Provider Encounter Details Date Type Department Care Team (Late st Contact Info) Description 03/12/1999 Outpatient Historical [place], Gibran Lynn MD [address] [facility] [address] [place] [phone] Social History Tobacco Use Types Packs/Day Years Used Date Smoking Tobacco: Never Assessed Comments Unknown Sex and Gender Information Value Date Recorded Sex Assigned at Not on file Legal Sex Female 3:40 AM MAORI LIAISON ADVISER Gender Identity Not on file Sexual Orientation Not on file documented as of this encounter Plan of Treatment Not on file documented as of this encounter Visit Diagnoses Not on filedocumented in this encounter Additional Health Concerns Infection Onset Date Last Indicated Resolved Time R/O COVID-19 01/31/2020 01/31/2020 02/02/2020 10:3 2 AM CDT documented as of this encounter Care Teams Slicing Machine Feeder Relationship Specialty Start Date End Date Areli Gurrola MD [address] [facility] [place] [address] PCP - General Specialist 08/12/19 documented as of this encounter
--- OUTSIDE RECORDS SUMMARY | 2025-01-10 16:26 | XMS_ITS | Encounter Summary ---
Author Organization [facility] Address [address] [place] [address] Care Team Providers Care Watch Engine Operator Name Role Phone Areli Gurrola MD Primary Care Provider Encounter Details Date Type Department Care Team (Latest Contact Info) Description 03/09/1999 Outpatient [facility] [place] [address] [place], Gibran Lynn MD [address] [place] [address] Sprain and strain of unspecified site of shoulder and upper arm (Primary Dx); Backache, unspecified Social History Tobacco Use Types Packs/Day Years Used Date Smoking Tobacco: Never Assessed Comments Unknown Sex and Gender Information Value Date Recorded Sex Assigned at Not on file Legal Sex Female 3:40 AM RED CROSS EXECUTIVE DIRECTOR Gender Identity Not on file Sexual [...] documented as of this encounter Care Teams Watch Engine Operator Relationship Specialty Start Date End Date Areli Gurrola MD [address] [place] [address] PCP - General Specialist 08/12/19 documented as of this encounter
--- OUTSIDE RECORDS SUMMARY | 2025-01-10 16:26 | XMS_ITS | Encounter Summary ---
Author Organization [facility] Address [address] [place] [address] Care Team Providers Care Sill Worker Name Role Phone Areli Gurrola MD Primary Care Provider Encounter Details Date Type Department Care Team (Latest Contact Info) Description 10/09/2002 Outpatient Historical [facility] [address] [place] [address] Gordon Cabral MD NO ADDRESS ON FILE Excessive menstruation (Primary Dx) Social History Tobacco Use Types Packs/Day Years Used Date Smoking Tobacco: Never Assessed Comments Unknown Sex and Gender Information Value Date Recorded Sex Assigned at Not on file Legal Sex Female 3:40 AM NAIL STICKER Gender Identity Not on file Sexual Orientation [...] documented as of this encounter Care Teams Sill Worker Relationship Specialty Start Date End Date Areli Gurrola MD [address] [place] [address] PCP - General Specialist 08/12/19 documented as of this encounter
--- OUTSIDE RECORDS SUMMARY | 2025-01-10 16:26 | XMS_ITS | Encounter Summary ---
Author Organization [facility] Address [address] [place] [address] Care Team Providers Care City Constable Name Role Phone Unavailable Primary Care Provider Unavailabl e Encounter Details Date Type Department Care Team (Late st Contact Info) Description 01/06/2025 External Device Data ST[facility] ABSTRACTION Provider, Abstract [...] on file Legal Sex Female 6:21 AM HALL DIRECTOR Gender Identity Not on file Sexual Orientation Not on file documented as of this encounter Plan of Treatment Not on file documented as of this encounter Visit Diagnoses Not on filedocumented in this encounter
--- OUTSIDE RECORDS SUMMARY | 2025-01-10 16:26 | XMS_ITS | Encounter Summary ---
Author Organization [facility] Address [address] [place] [address] Care Team Providers Care Teacher Learning Disabled Name Role Phone Areli Gurrola MD Primary Care Provider Encounter Details Date Type Department Care Team (Latest Contact Info) Description 03/06/2005 Outpatient Historical [facility] [address] [place] [address] Trell York MD [address] [place] [phone] DENTAL DISORDER NOS (Primary Dx); CERVICALGIA; LUMBAGO; DYSTHYMIC DISORDER Social History Tobacco Use Types Packs/Day Years Used Date Smoking Tobacco: Never Assessed Comments Unknown Sex and Gender Information Value Date Recorded Sex Assigned at Not on file Legal Sex Female 3:40 AM ACADEMIC COACH Gender Identity Not on file Sexual [...] documented as of this encounter Care Teams Teacher Learning Disabled Relationship Specialty Start Date End Date Areli Gurrola MD [address] [facility] [place] [address] PCP - General Specialist 08/12/19 documented as of this encounter
--- OUTSIDE RECORDS SUMMARY | 2025-01-10 16:26 | XMS_ITS | Encounter Summary ---
Author Organization [facility] Address [address] [place] [address] Care Team Providers Care Record Tabulating Clerk Name Role Phone Areli Gurrola MD Primary Care Provider Encounter Details Date Type Department Care Team (Latest Contact Info) Description 10/03/2002 [facility] [address] [place] [address] Gordon Cabral MD NO ADDRESS ON FILE MENSTRUAL DISORDER NEC (Primary Dx) Social History Tobacco Use Types Packs/Day Years Used Date Smoking Tobacco: Never Assessed Comments Unknown Sex and Gender Information Value Date Recorded Sex Assigned at Not on file Legal Sex Female 3:40 AM INSURANCE LOSS ASSESSOR Gender Identity Not on file Sexual Orientation [...] documented as of this encounter Care Teams Record Tabulating Clerk Relationship Specialty Start Date End Date Areli Gurrola MD [address] [facility] [place] [address] PCP - General Specialist 08/12/19 documented as of this encounter
--- OUTSIDE RECORDS SUMMARY | 2025-01-10 16:26 | XMS_ITS | Encounter Summary ---
Author Organization [facility] Address [address] [place] [address] Care Team Providers Care Waterproofing Machine Operator Name Role Phone Areli Gurrola MD Primary Care Provider Encounter Details Date Type Department Care Team (Latest Contact Info) Description 04/25/2004 Outpatient Historical [facility] [address] [place] [address] Trell York MD [address] [place] [phone] DYSTHYMIC DISORDER (Primary Dx); LUMBAGO; Pain in limb; Inflamed seborr keratos Social History Tobacco Use Types Packs/Day Years Used Date Smoking Tobacco: Never Assessed Comments Unknown Sex and Gender Information Value Date Recorded Sex Assigned at Not on file Legal Sex Female 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
--- OUTSIDE RECORDS SUMMARY | 2025-01-10 16:26 | XMS_ITS | Encounter Summary ---
Author Organization [facility] Address [address] [place] [address] Care Team Providers Care Flipping Machine Operator Name Role Phone Areli Gurrola MD Primary Care Provider Encounter Details Date Type Department Care Team (Latest Contact Info) Description 10/28/2002 Outpatient [facility] [address] [place] [address] Gordon Cabral MD NO ADDRESS ON FILE SURGERY FOLLOWUP, UNSPEC (Primary Dx) Social History Tobacco Use Types Packs/Day Years Used Date Smoking Tobacco: Never Assessed Comments Unknown Sex and Gender Information Value Date Recorded Sex Assigned at Not on file Legal Sex Female 3:40 AM EYELET RIVETER Gender Identity Not on file Sexual Orientation [...] documented as of this encounter Care Teams Flipping Machine Operator Relationship Specialty Start Date End Date Areli Gurrola MD [address] [facility] [place] [address] PCP - General Specialist 08/12/19 documented as of this encounter
--- OUTSIDE RECORDS SUMMARY | 2025-01-10 16:26 | XMS_ITS | Encounter Summary ---
Author Organization [facility] Address [address] [place] [address] Care Team Providers Care Social Insurance Analyst Name Role Phone Areli Gurrola MD Primary Care Provider Encounter Details Date Type Department Care Team (Latest Contact Info) Description 07/07/2004 Outpatient Historical [facility] [place] [address] [place] [address] Trell York MD [address] [place] [phone] CERVICAL DISC DISPLACMNT (Primary Dx) Social History Tobacco Use Types Packs/Day Years Used Date Smoking Tobacco: Never Assessed Comments Unknown Sex and Gender Information Value Date Recorded Sex Assigned at Not on file Legal Sex Female 3:40 AM MACHINE CAPTAIN Gender Identity Not on file Sexual [...] documented as of this encounter Care Teams Social Insurance Analyst Relationship Specialty Start Date End Date Areli Gurrola MD [address] [facility] [address] PCP - General Specialist 08/12/19 documented as of this encounter
--- OUTSIDE RECORDS SUMMARY | 2025-01-10 16:26 | XMS_ITS | Encounter Summary ---
Author Organization [facility] Address [address] [place] [address] Care Team Providers Care Forestry Foreman Name Role Phone Areli Gurrola MD Primary Care Provider Encounter Details Date Type Department Care Team (Latest Contact Info) Description 06/07/1998 Outpatient Historical [facility] Charli Perez MD NO ADDRESS ON FILE Open wound of forehead (Primary Dx) Social History Tobacco Use Types Packs/Day Years Used Date Smoking Tobacco: Never Assessed Comments Unknown Sex and Gender Information Value Date Recorded Sex Assigned at Not on file Legal Sex Female 3:40 AM RELOCATION COMMISSIONER Gender Identity Not on file Sexual Orientation [...] documented as of this encounter Care Teams Forestry Foreman Relationship Specialty Start Date End Date Areli Gurrola MD [address] [place] [address] PCP - General Specialist 08/12/19 documented as of this encounter
--- OUTSIDE RECORDS SUMMARY | 2025-01-10 16:26 | XMS_ITS | Encounter Summary ---
Author Organization [facility] Address [address] [place] [address] Care Team Providers Care Greaser Helper Name Role Phone Areli Gurrola MD Primary Care Provider Encounter Details Date Type Department Care Team (Latest Contact Info) Description 07/26/1998 Outpatient Historical [facility] Charli Perez MD NO ADDRESS ON FILE Other specified aftercare following surgery (Primary Dx) Social History Tobacco Use Types Packs/Day Years Used Date Smoking Tobacco: Never Assessed Comments Unknown Sex and Gender Information Value Date Recorded Sex Assigned at Not on file Legal Sex Female 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
--- OUTSIDE RECORDS SUMMARY | 2025-01-10 16:26 | XMS_ITS | Encounter Summary ---
Author Organization [facility] Address [address] [place] [address] Care Team Providers Care Board Writer Name Role Phone Areli Gurrola MD Primary Care Provider Encounter Details Date Type Department Care Team (Latest Contact Info) Description 10/14/2002 Outpatient Historical [facility] [address] [place] [address] Trell York MD [address] [place] [id number] ACUTE URI NOS (Primary Dx); COUGH Social History Tobacco Use Types Packs/Day Years Used Date Smoking Tobacco: Never Assessed Comments Unknown Sex and Gender Information Value Date Recorded Sex Assigned at Not on file Legal Sex Female 3:40 AM ADJUSTER Gender Identity Not on file Sexual [...] documented as of this encounter Care Teams Board Writer Relationship Specialty Start Date End Date Areli Gurrola MD [address] [facility] [place] [address] PCP - General Specialist 08/12/19 documented as of this encounter
--- OUTSIDE RECORDS SUMMARY | 2025-01-10 16:26 | XMS_ITS | Encounter Summary ---
Author Organization [facility] Address [address] [place] [address] Care Team Providers Care Ski Patrol Name Role Phone Areli Gurrola MD Primary Care Provider Encounter Details Date Type Department Care Team (Latest Contact Info) Description 07/19/1998 Outpatient Historical [facility]GERY Charli Perez MD NO ADDRESS ON FILE Scar condition and fibrosis of skin (Primary Dx) Social History Tobacco Use Types Packs/Day Years Used Date Smoking Tobacco: Never Assessed Comments Unknown Sex and Gender Information Value Date Recorded Sex Assigned at Not on file Legal Sex Female 3:40 AM FARM MANAGEMENT ADVISER Gender Identity Not on file Sexual [...] documented as of this encounter Care Teams Ski Patrol Relationship Specialty Start Date End Date Areli Gurrola MD [address] [place] [address] PCP - General Specialist 08/12/19 documented as of this encounter
--- OUTSIDE RECORDS SUMMARY | 2025-01-10 16:26 | XMS_ITS | Encounter Summary ---
Author Organization [facility] Address [address] [place] [address] Care Team Providers Care Salesperson Recreational Vehicles Name Role Phone Areli Gurrola MD Primary Care Provider Encounter Details Date Type Department Care Team (Latest Contact Info) Description 04/21/2003 Outpatient [facility] [address] [place] [address] Gordon Cabral MD NO ADDRESS ON FILE URIN TRACT INFECTION NOS (Primary Dx) Social History Tobacco Use Types Packs/Day Years Used Date Smoking Tobacco: Never Assessed Comments Unknown Sex and Gender Information Value Date Recorded Sex Assigned at Not on file Legal Sex Female 3: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 [facility] [facility] [place] [address] PCP - General Specialist 08/12/19 documented as of this encounter
--- OUTSIDE RECORDS SUMMARY | 2025-01-10 16:26 | XMS_ITS | Encounter Summary ---
Author Organization [facility] Address [address] [place] [address] Care Team Providers Care Sales Representative Raw Fibers Name Role Phone Unavailable Primary Care Provider [...] on file Legal Sex Female 6:21 AM SUBSTATION TECHNICIAN Gender Identity Not on file Sexual Orientation Not on file documented as of this encounter Plan of Treatment Not on file documented as of this encounter Visit Diagnoses Not on filedocumented in this encounter
--- OUTSIDE RECORDS SUMMARY | 2025-01-10 16:26 | XMS_ITS | Encounter Summary ---
Author Organization [facility] Address [address] [place] [address] Care Team Providers Care Carpentry Instructor Name Role Phone Areli Gurrola MD Primary Care Provider Encounter Details Date Type Department Care Team (Latest Contact Info) Description 06/04/1998 Outpatient Historical [facility] Charli Perez MD NO ADDRESS ON FILE Open wound of forehead (Primary Dx) Social History Tobacco Use Types Packs/Day Years Used Date Smoking Tobacco: Never Assessed Comments Unknown Sex and Gender Information Value Date Recorded Sex Assigned at Not on file Legal Sex Female 3:40 AM BAG TESTER Gender Identity Not on file Sexual [...] documented as of this encounter Care Teams Carpentry Instructor Relationship Specialty Start Date End Date Areli Gurrola MD [address] [place] [address] PCP - General Specialist 08/12/19 documented as of this encounter
--- OUTSIDE RECORDS SUMMARY | 2025-01-10 16:26 | XMS_ITS | Encounter Summary ---
Author Organization [facility] Address [address] [place] [address] Care Team Providers Care Bookstore Manager Name Role Phone Areli Gurrola MD Primary Care Provider Encounter Details Date Type Department Care Team (Latest Contact Info) Description 02/14/1999 Outpatient Historical [facility] [place] [address] [place] [address] AlumnoGibran MD [address] [place] [address] Lumbago (Primary Dx) Social History Tobacco Use Types Packs/Day Years Used Date Smoking Tobacco: Never Assessed Comments Unknown Sex and Gender Information Value Date Recorded Sex Assigned at Not on file Legal Sex Female 3:40 AM PICKLE CUTTER Gender Identity Not on file Sexual Orientation Not on file documented as of this encounter Plan of Treatment Not on file documented as of this encounter Visit Diagnoses Diagnosis Lumbago- Primary documented in this encounter Additional Health Concerns Infection Onset Date Last Indicated Resolved Time R/O COVID-19 01/31/2020 01/31/2020 02/02/2020 10:3 2 AM CDT documented as of this encounter Care Teams Bookstore Manager Relationship Specialty Start Date End Date Areli Gurrola MD [address] [place] [address] PCP - General Specialist 08/12/19 documented as of this encounter
--- OUTSIDE RECORDS SUMMARY | 2025-01-10 16:26 | XMS_ITS | Encounter Summary ---
Author Organization [facility] Address [address] [place] [address] Care Team Providers Care Fitter / Welder Name Role Phone Areli Gurrola MD Primary Care Provider Encounter Details Date Type Department Care Team (Latest Contact Info) Description 10/09/2002 Outpatient Historical [facility] [place] [address] [place] [address] Gordon Cabral MD NO ADDRESS ON FILE Excessive menstruation (Primary Dx) Social History Tobacco Use Types Packs/Day Years Used Date Smoking Tobacco: Never Assessed Comments Unknown Sex and Gender Information Value Date Recorded Sex Assigned at Not on file Legal Sex Female 3:40 AM CHIP APPLYING MACHINE TENDER Gender Identity Not on file [...] documented as of this encounter Care Teams Fitter / Welder Relationship Specialty Start Date End Date Areli Gurrola MD [address] [address] PCP - General Specialist 08/12/19 documented as of this encounter
--- OUTSIDE RECORDS SUMMARY | 2025-01-10 16:26 | XMS_ITS | Encounter Summary ---
Author Organization [facility] Address [address] [place] [address] Care Team Providers Care Chemical Production Technician Name Role Phone Areli Gurrola MD Primary Care Provider Encounter Details Date Type Department Care Team (Late st Contact Info) Description 07/07/2004 Outpatient Historical [facility] [address] [place] [address] [address] Social History Tobacco Use Types Packs/Day Years Used Date Smoking Tobacco: Never Assessed Comments Unknown Sex and Gender Information Value Date Recorded Sex Assigned at Not on file Legal Sex Female 3:40 AM TRACER POWDER BLENDER Gender Identity Not on file Sexual Orientation Not on file documented as of this encounter Plan of Treatment Not on file documented as of this encounter Visit Diagnoses Not on filedocumented in this encounter Additional Health Concerns Infection Onset Date Last Indicated Resolved Time R/O COVID-19 01/31/2020 01/31/2020 02/02/2020 10:3 2 AM CDT documented as of this encounter Care Teams Chemical Production Technician Relationship Specialty Start Date End Date Areli Gurrola MD [address] [place] [address] PCP - General Specialist 08/12/19 documented as of this encounter
--- OUTSIDE RECORDS SUMMARY | 2025-01-10 16:26 | XMS_ITS | Encounter Summary ---
Author Organization [facility] Address [address] [place] [address] Care Team Providers Care Assistant Terminal Manager Name Role Phone Areli Gurrola MD Primary Care Provider Encounter Details Date Type Department Care Team (Latest Contact Info) Description 12/18/2002 Outpatient Historical [facility] PreAdmission [facility] [id number] [place] [address] Gordon Cabral MD NO ADDRESS ON FILE PREOP EXAM OTHER SPECIFIED (Primary Dx) Social History Tobacco Use Types Packs/Day Years Used Date Smoking Tobacco: Never Assessed Comments Unknown Sex and Gender Information Value Date Recorded Sex Assigned at Not on file Legal Sex Female 3:40 AM TECHNICAL PUBLICATIONS MANAGER Gender Identity Not on file Sexual [...] as of this encounter Care Teams Assistant Terminal Manager Relationship Specialty Start Date End Date Areli Gurrola MD [address] [place] [address] PCP - General Specialist 08/12/19 documented as of this encounter
--- OUTSIDE RECORDS SUMMARY | 2025-01-10 16:26 | XMS_ITS | Encounter Summary ---
Author Organization [facility] Address [address] [place] [address] Care Team Providers Care Rabbit Fancier Name Role Phone Areli Gurrola MD Primary Care Provider Encounter Details Date Type Department Care Team (Latest Contact Info) Description 12/18/2002 Outpatient [facility] [place] [address] [place] [address] Gordon Cabral MD NO ADDRESS ON FILE PREOP EXAM OTHER SPECIFIED (Primary Dx); Excessive menstruation; FEMALE GENITAL SYMPTOMS NOS Social History Tobacco Use Types Packs/Day Years Used Date Smoking Tobacco: Never Assessed Comments Unknown Sex and Gender Information Value Date Recorded Sex Assigned at Not on file Legal Sex Female 3:40 AM PICKER AND SORTER LOAD AND UNLOAD Gender Identity Not on file Sexual Orientation [...] documented as of this encounter Care Teams Rabbit Fancier Relationship Specialty Start Date End Date Areli Gurrola MD [address] [place] [address] PCP - General Specialist 08/12/19 documented as of this encounter
--- OUTSIDE RECORDS SUMMARY | 2025-01-10 16:26 | XMS_ITS | Encounter Summary ---
Author Organization [facility] Address [address] [place] [address] Care Team Providers Care Tire Trucker Name Role Phone Areli Gurrola MD Primary [...] on file Legal Sex Female 3:40 AM TERRITORY MANAGER Gender Identity Not on file Sexual [...] documented as of this encounter Care Teams Tire Trucker Relationship Specialty Start Date End Date Areli Gurrola MD [address] [place] [address] PCP - General Specialist 08/12/19 documented as of this encounter
--- OUTSIDE RECORDS SUMMARY | 2025-01-10 16:26 | XMS_ITS | Encounter Summary ---
Author Organization [facility] Address [address] [place] [address] Care Team Providers Care Asbestos Brake Lining Finisher Helper Name Role Phone Areli Gurrola MD Primary Care Provider Encounter Details Date Type Department Care Team (Latest Contact Info) Description 10/16/2002 Outpatient [facility] [place] [address] [place] [address] Gordon Cabral MD NO ADDRESS ON FILE PREOP EXAM OTHER SPECIFIED (Primary Dx); Excessive menstruation Social History Tobacco Use Types Packs/Day Years Used Date Smoking Tobacco: Never Assessed Comments Unknown Sex and Gender Information Value Date Recorded Sex Assigned at Not on file Legal Sex Female 3:40 AM EMERGENCY MEDICAL TECHNICIAN BASIC Gender Identity Not on file Sexual Orientation [...] documented as of this encounter Care Teams Asbestos Brake Lining Finisher Helper Relationship Specialty Start Date End Date Areli Gurrola MD [address] [place] [address] PCP - General Specialist 08/12/19 documented as of this encounter
--- OUTSIDE RECORDS SUMMARY | 2025-01-10 16:26 | XMS_ITS | Encounter Summary ---
Author Organization [facility] Address [address] [place] [address] Care Team Providers Care Rubber Press Operator Name Role Phone Areli Gurrola MD Primary Care Provider Encounter Details Date Type Department Care Team (Latest Contact Info) Description 09/14/2004 Outpatient Historical [facility] [address] [place] [address] Trell York MD [address] [place] [phone] DYSTHYMIC DISORDER (Primary Dx); CERVICALGIA; LUMBAGO Social History Tobacco Use Types Packs/Day Years Used Date Smoking Tobacco: Never Assessed Comments Unknown Sex and Gender Information Value Date Recorded Sex Assigned at Not on file Legal Sex Female 3:40 AM EXHIBITION ORGANISER Gender Identity Not on file Sexual Orientation [...] documented as of this encounter Care Teams Rubber Press Operator Relationship Specialty Start Date End Date Areli Gurrola MD [address] [place] [address] PCP - General Specialist 08/12/19 documented as of this encounter
--- OUTSIDE RECORDS SUMMARY | 2025-01-10 16:26 | XMS_ITS | Encounter Summary ---
Author Organization [facility] Address [address] [place] [address] Care Team Providers Care Opinion Polls Survey Worker Name Role Phone Areli Gurrola MD Primary Care Provider Encounter Details Date Type Department Care Team (Latest Contact Info) Description 03/14/1999 Outpatient [facility] [address] [place] [address] Ti Rondon MD [address] [place] [address] Abdominal pain, unspecified site (Primary Dx); Fever and other physiologic disturbances of temperature regulation; Backache, unspecified Social History Tobacco Use Types Packs/Day Years Used Date Smoking Tobacco: Never Assessed Comments Unknown Sex and Gender Information Value Date Recorded Sex Assigned at Not on file Legal Sex Female 3:40 AM ACCESS NURSE Gender Identity Not on file Sexual [...] documented as of this encounter Care Teams Opinion Polls Survey Worker Relationship Specialty Start Date End Date Areli Gurrola MD [address] [place] [address] PCP - General Specialist 08/12/19 documented as of this encounter
--- OUTSIDE RECORDS SUMMARY | 2025-01-10 16:26 | XMS_ITS | Encounter Summary ---
Author Organization [facility] Address [address] [place] [address] Care Team Providers Care Dining Room Host/Hostess Name Role Phone Areli Gurrola MD Primary Care Provider Encounter Details Date Type Department Care Team (Latest Contact Info) Description 09/12/[address] [facility] [address] [place] [address] Trell Maria Jr., MD [address] [place] [address] Anxiety State, Unspecified (Primary Dx) Social History Tobacco Use Types Packs/Day Years Used Date Smoking Tobacco: Never Assessed Comments Unknown Sex and Gender Information Value Date Recorded Sex Assigned at Not on file Legal Sex Female 3:40 AM NUCLEAR SUPERVISING OPERATOR Gender Identity Not on file Sexual [...] documented as of this encounter Care Teams Dining Room Host/Hostess Relationship Specialty Start Date End Date Areli Gurrola MD [address] [facility] [place] [address] PCP - General Specialist 08/12/19 documented as of this encounter
--- OUTSIDE RECORDS SUMMARY | 2025-01-10 16:26 | XMS_ITS | Encounter Summary ---
Author Organization [facility] Address [address] [place] [address] Care Team Providers Care Oracle Apex Developer Name Role Phone Areli Gurrola MD Primary Care Provider Encounter Details Date Type Department Care Team (Latest Contact Info) Description 02/14/1999 Outpatient Historical [facility] Lupis-[place] [address] [place] [address] Alumno, Gibran Lynn MD [address] [place] [address] Sprain and strain of other specified sites of shoulder and upper arm (Primary Dx) Social History Tobacco Use Types Packs/Day Years Used Date Smoking Tobacco: Never Assessed Comments Unknown Sex and Gender Information Value Date Recorded Sex Assigned at Not on file Legal Sex Female 3:40 AM BARREL ENDSHAKE ADJUSTER Gender Identity Not on file Sexual [...] as of this encounter Care Teams Oracle Apex Developer Relationship Specialty Start Date End Date Areli Gurrola MD [address] [place] [address] PCP - General Specialist 08/12/19 documented as of this encounter
--- OUTSIDE RECORDS SUMMARY | 2025-01-10 16:26 | XMS_ITS | Encounter Summary ---
Author Organization [facility] Address [address] [place] [address] Care Team Providers Care Chicken Vaccinator Name Role Phone Areli Gurrola MD Primary Care Provider Encounter Details Date Type Department Care Team (Latest Contact Info) Description 10/20/2002 Outpatient Historical [facility] Pre[facility] [place] [address] [place] [address] Gordon Cabral MD NO ADDRESS ON FILE PREOP EXAM OTHER SPECIFIED (Primary Dx) Social History Tobacco Use Types Packs/Day Years Used Date Smoking Tobacco: Never Assessed Comments Unknown Sex and Gender Information Value Date Recorded Sex Assigned at Not on file Legal Sex Female 3:40 AM MATERIALS TECHNICIAN Gender Identity Not on file Sexual [...] documented as of this encounter Care Teams Chicken Vaccinator Relationship Specialty Start Date End Date Areli Gurrola MD [address] [place] [address] PCP - General Specialist 08/12/19 documented as of this encounter
--- OUTSIDE RECORDS SUMMARY | 2025-01-10 16:26 | XMS_ITS | Encounter Summary ---
Author Organization [facility] Address [address] [place] [address] Care Team Providers Care Medical Director Of Hospice Name Role Phone Areli Gurrola MD Primary Care Provider Encounter Details Date Type Department Care Team (Latest Contact Info) Description 02/20/2005 Outpatient Historical [facility] [address] [place] [address] Trell York MD [address] [place] [phone] LUMBAGO (Primary Dx); DYSTHYMIC DISORDER; ANXIETY STATE NOS; CERVICALGIA Social History Tobacco Use Types Packs/Day Years Used Date Smoking Tobacco: Never Assessed Comments Unknown Sex and Gender Information Value Date Recorded Sex Assigned at Not on file Legal Sex Female 3:40 AM BOTTLE ASSEMBLER Gender Identity Not on file Sexual [...] as of this encounter Care Teams Medical Director Of Hospice Relationship Specialty Start Date End Date Areli Gurrola MD [address] [place] [address] PCP - General Specialist 08/12/19 documented as of this encounter
--- OUTSIDE RECORDS SUMMARY | 2025-01-10 16:26 | XMS_ITS | Encounter Summary ---
Author Organization [facility] Address [address] [place] [address] Care Team Providers Care Technical Sales Support Manager Name Role Phone Areli Gurrola MD Primary Care Provider Encounter Details Date Type Department Care Team (Latest Contact Info) Description 07/05/1998 Outpatient Historical [facility] Charli Perez MD NO ADDRESS ON FILE Other specified aftercare following surgery (Primary Dx) Social History Tobacco Use Types Packs/Day Years Used Date Smoking Tobacco: Never Assessed Comments Unknown Sex and Gender Information Value Date Recorded Sex Assigned at Not on file Legal 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
--- OUTSIDE RECORDS SUMMARY | 2025-01-10 16:26 | XMS_ITS | Encounter Summary ---
Author Organization [facility] Address [address] [place] [address] Care Team Providers Care Skirt Maker Name Role Phone Areli Gurrola MD Primary Care Provider Encounter Details Date Type Department Care Team (Latest Contact Info) Description 12/02/2002 Outpatient [facility] [place] [address] [place] [address] Gordon Cabral MD NO ADDRESS ON FILE FEMALE GENITAL SYMPTOMS NOS (Primary Dx) Social History Tobacco Use Types Packs/Day Years Used Date Smoking Tobacco: Never Assessed Comments Unknown Sex and Gender Information Value Date Recorded Sex Assigned at Not on file Legal Sex Female 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
--- OUTSIDE RECORDS SUMMARY | 2025-01-10 16:26 | XMS_ITS | Encounter Summary ---
Author Organization [facility] Address [address] [place] [address] Care Team Providers Care Sanitation Inspector Name Role Phone Areli Gurrola MD Primary Care Provider Encounter Details Date Type Department Care Team (Latest Contact Info) Description 02/02/1999 Outpatient Historical [facility] Lupis[address]Randy [address] [place] [address] Alumno, Gibran Lynn MD [address] [place] [address] Sprain and strain of other specified sites of shoulder and upper arm (Primary Dx); Hx musculoskletl dis NEC Social History Tobacco Use Types Packs/Day Years Used Date Smoking Tobacco: Never Assessed Comments Unknown Sex and Gender Information Value Date Recorded Sex Assigned at Not on file Legal Sex Female 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
--- OUTSIDE RECORDS SUMMARY | 2025-01-10 16:26 | XMS_ITS | Encounter Summary ---
Author Organization 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
--- OUTSIDE RECORDS SUMMARY | 2025-01-10 16:26 | XMS_ITS | Encounter Summary ---
Author Organization [facility] Address [address] [place] [address] Care Team Providers Care Flavorer Name Role Phone Areli Gurrola MD Primary Care Provider Encounter Details Date Type Department Care Team (Latest Contact Info) Description 05/11/2003 Outpatient Historical [facility] [address] [place] [address] Trell York MD [address] [place] [phone] CERVICALGIA (Primary Dx) Social History Tobacco Use Types Packs/Day Years Used Date Smoking Tobacco: Never Assessed Comments Unknown Sex and Gender Information Value Date Recorded Sex Assigned at Not on file Legal Sex Female 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 Gender Identity Not on file Sexual Orientation Not on file documented as of this encounter Plan of Treatment Not on file documented as of this encounter Visit Diagnoses Diagnosis Cervicalgia- Primary documented in this encounter Additional Health Concerns Infection Onset Date Last Indicated Resolved Time R/O COVID-19 01/31/2020 01/31/2020 02/02/2020 10:3 2 AM CDT documented as of this encounter Care Teams Flavorer Relationship Specialty Start Date End Date Areli Gurrola MD [address] [facility] [place] [address] PCP - General Specialist 08/12/19 documented as of this encounter
--- OUTSIDE RECORDS SUMMARY | 2025-01-10 16:26 | XMS_ITS | Encounter Summary ---
Author Organization [facility] Address [address] [place] [address] Care Team Providers Care Orthopedic Coder Name Role Phone Areli Gurrola MD Primary Care Provider Encounter Details Date Type Department Care Team (Latest Contact Info) Description 02/05/2003 Outpatient Historical [facility] [address] [place] [address] Gordon Cabral MD NO ADDRESS ON FILE SURGERY FOLLOWUP, UNSPEC (Primary Dx) Social History Tobacco Use Types Packs/Day Years Used Date Smoking Tobacco: Never Assessed Comments Unknown Sex and Gender Information Value Date Recorded Sex Assigned at Not on file Legal 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
--- OUTSIDE RECORDS SUMMARY | 2025-01-10 16:26 | XMS_ITS | Encounter Summary ---
Author Organization [facility] Address [address] [place] [address] Care Team Providers Care Supervisor Instant Potato Processing Name Role Phone Areli Gurrola MD Primary Care Provider Encounter Details Date Type Department Care Team (Late st Contact Info) Description 10/27/2002 Emergency [facility] [address] [place] [address] Cira Archibald MD NO ADDRESS ON FILE FEMALE GENITAL SYMPTOMS NOS (Primary Dx) Social History Tobacco Use Types Packs/Day Years Used Date Smoking Tobacco: Never Assessed Comments Unknown Sex and Gender Information Value Date Recorded Sex Assigned at Not on file Legal Sex Female 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
--- OUTSIDE RECORDS SUMMARY | 2025-01-10 16:26 | XMS_ITS | Clinical Summary ---
Author Organization [facility] Address [address] [place] [address] Care Team Providers Care Master Chef Name Role Phone Unavailable Primary Care Provider [...] Encounters Date Type Department Care Team Description 01/06/2025 External Device Data [facility] ABSTRACTION Provider, Abstract 01/06/2025 External Device Data [facility] ABSTRACTION Provider, Abstract 12/30/2024 External Device Data [facility] ABSTRACTION Provider, Abstract 12/09/2024 External Device Data [facility] ABSTRACTION Provider, Abstract 12/05/2024 7:24 PM CDT - 12/05/2024 9:47 PM CDT [facility] Emergency Medicine [address] [facility] [address] [place] [address] Leg swelling (Primary Dx); Chronic bilateral low back pain without sciatica Discharge Disposition: Home or Self Care 11/22/2024 8:22 PM CDT - 11/22/2024 10:24 PM CDT [facility] Emergency Medicine [address] [facility] [address] [place] [address] Julian Avila MD Nausea (Primary Dx); Acute low back pain without sciatica, unspecified back pain laterality Discharge Disposition: Home or Self Care 11/22/2024 Travel 10/28/2024 External Device Data [facility] ABSTRACTION Provider, Abstract 10/28/2024 External Device Data [facility] ABSTRACTION Provider, Abstract 10/28/2024 External Device Data [facility] ABSTRACTION Provider, Abstract 10/24/2024 7:46 PM CDT - 10/24/2024 10:27 PM CDT [facility] Emergency Medicine [address] [facility] [address] [place] [address] Radha Castillo Y, DO Pain in sacrum (Primary Dx); Acute [...] on file Legal 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 WBC 4.0 4.0 - 10.0 K/uL 12/05/2024 8:38 PM [facility] RBC 3.03(L) 3.93 - 5.22 M/uL 12/05/2024 8:38 PM [facility] HEMOGLOBIN 8.4(L) 11.2 - 15.7 g/dL 12/05/2024 8:38 PM [facility] HEMATOCRIT 25.2(L) 34.1 - 44.9 % 12/05/2024 8:38 PM [facility] MCV 83.2 79.4 - 94.8 fL 12/05/2024 8:38 PM [facility] MCH 27.7 25.6 - 32.2 pg 12/05/2024 8:38 PM [facility] MCHC 33.3 32.2 - 35.5 g/dL 12/05/2024 8:38 PM [facility] RDW 16.5(H) 11.0 - 14.5 % 12/05/2024 8:38 PM [facility] RDW-STDEV 49.7 36.9 - 56.9 fL 12/05/2024 8:38 PM [facility] PLATELETS 97(L) 163 - 337 K/uL 12/05/2024 8:38 PM [facility] MPV 10.2 10.0 - 14.8 fL 12/05/2024 8:38 PM [facility] NEUTROPHILS 68 34 - 71 % 12/05/2024 8:38 PM [facility] LYMPHOCYTES 21 19 - 52 % 12/05/2024 8:38 PM [facility] MONOCYTES 8 5 - 13 % 12/05/2024 8:38 PM [facility] EOSINOPHILS 2 1 - 6 % 12/05/2024 8:38 PM CDT [facility] BASOPHILS 1 0 - 1 % 12/05/2024 8:38 PM CDT [facility] IMMATURE GRANULOCYTES 1 % 12/05/2024 8:38 PM CDT [facility] NEUTROPHIL ABSOLUTE 2.72 1.56 - 6.13 K/uL 12/05/2024 8:38 PM T [facility] LYMPHOCYTE ABSOLUTE 0.83(L) 1.20 - 3.40 K/uL 12/05/2024 8:38 PM CDT [facility] MONOCYTE ABSOLUTE 0.30 0.24 - 0.36 K/uL 12/05/2024 8:38 PM [facility] EOSINOPHIL ABSOLUTE 0.07 0.04 - 0.36 K/uL 12/05/2024 8:38 PM CDT [facility] BASOPHILS ABSOLUTE 0.03 0.01 - 0.08 K/uL 12/05/2024 8:38 PM [facility] IMMATURE GRANULOCYTES ABSOLUTE 0.02 K/uL 12/05/2024 8:38 PM [facility] Blood BLOOD SPECIMEN / Unknown Collection / Unknown 12/05/2024 8:13 PM CDT 12/05/2024 8:21 PM CDT us Julian Avila MD HEMATOLOGY ORDERABLES Final Result [facility] # [id number] [address] [place] [id number] * (ABNORMAL) COMPREHENSIVE METABOLIC PANEL (12/05/2024 8:13 PM CDT) Only the most recent of2 resultswithin the time period is included. SODIUM 140 136 - 145 mmol/L 12/05/2024 8:56 PM CDT [facility] POTASSIUM 3.4(L) 3.5 - 5.1 mmol/L 12/05/2024 8:56 PM [facility] CHLORIDE 106 98 - 107 mmol/L 12/05/2024 8:56 PM [facility] CO2 24 22 - 29 mmol/L 12/05/2024 8:56 PM [facility] CALCIUM 8.2(L) 8.6 - 10.0 mg/dL 12/05/2024 8:56 PM [facility] BUN 5(L) 6 - 20 mg/dL 12/05/2024 8:56 PM [facility] CREATININE 0.62 0.51 - 0.95 mg/dL 12/05/2024 8:56 PM [facility] GLUCOSE 98 74 - 99 mg/dL 12/05/2024 8:56 PM [facility] TOTAL PROTEIN 5.2(L) 6.6 - 8.7 g/dL 12/05/2024 8:56 PM [facility] ALBUMIN 2.9(L) 3.5 - 5.2 g/dL 12/05/2024 8:56 PM [facility] BILIRUBIN TOTAL 2.4(H) 0.0 - 1.2 mg/dL 12/05/2024 8:56 PM [facility] ALKALINE PHOSPHATASE 135(H) 35 - 104 U/L 12/05/2024 8:56 PM [facility] AST 72(H) 0 - 35 U/L 12/05/2024 8:56 PM [facility] Comment:Hemolysis present. R esult may be falsely elevated. ALT 34 0 - 35 U/L 12/05/2024 8:56 PM [facility] GFR >60 >=60 mL/min/1.7 3 sq meter 12/05/2024 8:56 PM [facility] Comment:eGFR calculated with 2020 CKD-EPI equation. Vegetarian diet, extremely high or low muscle mass, and may affect results. Cystatin C with Glomerular Filtration Rate is a suitable alternative for these patients. ANION GAP 10 5 - 20 mmol/L 12/05/2024 8:56 PM [facility] Blood BLOOD SPECIMEN / Unknown Collection / Unknown 12/05/2024 8:13 PM CDT 12/05/2024 8:21 PM CDT Julian Avila MD CHEMISTRY ORDERABLES Final Result Performing Organization Address City/[facility]/ZIP Co de Phone Number [facility] CLIA # [id number] [address] [place] [phone] * (ABNORMAL) LIPASE (11/22/2024 8:33 PM CDT) LIPASE 72(H) 13 - 60 U/L 11/22/2024 8:57 PM CDT [facility] Blood BLOOD SPECIMEN / Unknown Collection / Unknown 11/22/2024 8:33 PM CDT 11/22/2024 8:39 PM CDT Julian Avila MD CHEMISTRY ORDERABLES Final Result Performing Organization Address [facility] Co de Phone Number [facility] CLIA # [id number] [address] [place] [phone] * EKG 12 lead (11/22/2024 8:14 PM [...] Relevant to Health Maintenance Insurance [place]ICAID [place] [facility]
--- OUTSIDE RECORDS SUMMARY | 2025-01-10 16:27 | XMS_ITS | Encounter Summary ---
Author Organization [facility] Address [address] [place] [address] Care Team Providers Care Recenterer Name Role Phone Areli Gurrola MD Primary Care Provider Encounter Details Date Type Department Care Team (Late st Contact Info) Description 06/27/2001 Outpatient Historical [facility] Gen Spec Surg [address] [address] Renan Martinez MD [address] [place] [address] CHOLELITHIASIS NOS (Primary Dx); SURGERY FOLLOWUP, UNSPEC Social History Tobacco Use Types Packs/Day Years Used Date Smoking Tobacco: Never Assessed Comments Unknown Sex and Gender Information Value Date Recorded Sex Assigned at Not on file 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
--- OUTSIDE RECORDS SUMMARY | 2025-01-10 16:27 | XMS_ITS | Encounter Summary ---
Author Organization [facility] Address [address] [place] [address] Care Team Providers Care Industrial Spraypainter Name Role Phone Areli Gurrola MD Primary Care Provider Encounter Details Date Type Department Care Team (Latest Contact Info) Description 04/07/2002 Outpatient Historical [facility] [address] [place] [address] Trell York MD [address] [place] [phone] URTICARIA NOS (Primary Dx) Social History Tobacco Use Types Packs/Day Years Used Date Smoking Tobacco: Never Assessed Comments Unknown Sex and Gender Information Value Date Recorded Sex Assigned at Not on file Legal 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 Gender Identity Not on file Sexual Orientation Not on file documented as of this encounter Plan of Treatment Not on file documented as of this encounter Visit Diagnoses Diagnosis Urticaria, unspecified- Primary documented in this encounter Additional Health Concerns Infection Onset Date Last Indicated Resolved Time R/O COVID-19 01/31/2020 01/31/2020 02/02/2020 10:3 2 AM CDT documented as of this encounter Care Teams Industrial Spraypainter Relationship Specialty Start Date End Date Areli Gurrola MD [address] [facility] [place] [address] PCP - General Specialist 08/12/19 documented as of this encounter
--- OUTSIDE RECORDS SUMMARY | 2025-01-10 16:27 | XMS_ITS | Encounter Summary ---
Author Organization [facility] Address [address] [place] [address] Care Team Providers Care Distribution Spec Name Role Phone Areli Gurrola MD Primary Care Provider Encounter Details Date Type Department Care Team (Latest Contact Info) Description 03/26/2002 Outpatient Historical [facility] [address] [place] [address] Trell York MD [address] [place] [phone] CERVICALGIA (Primary Dx); ABDOMINAL PAIN UNSPEC SITE Social History Tobacco Use Types Packs/Day Years Used Date Smoking Tobacco: Never Assessed Comments Unknown Sex and Gender Information Value Date Recorded Sex Assigned at Not on file Legal 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
--- OUTSIDE RECORDS SUMMARY | 2025-01-10 16:27 | XMS_ITS | Encounter Summary ---
Author Organization [facility] Address [address] [place] [address] Care Team Providers Care Cook Helper Fruit Name Role Phone Areli Gurrola MD Primary Care Provider Encounter Details Date Type Department Care Team (Latest Contact Info) Description 07/16/2001 Outpatient Historical [facility] [address] [place] [address] Trell York MD [address] [place] [phone] SWELLING OF LIMB (Primary Dx) Social History Tobacco Use Types Packs/Day Years Used Date Smoking Tobacco: Never Assessed Comments Unknown Sex and Gender Information Value Date Recorded Sex Assigned at Not on file Legal 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
--- OUTSIDE RECORDS SUMMARY | 2025-01-10 16:27 | XMS_ITS | Encounter Summary ---
Author Organization [facility] Address [address] [place] [address] Care Team Providers Care Custom Leather Products Maker Name Role Phone Areli Gurrola MD Primary Care Provider Encounter Details Date Type Department Care Team (Latest Contact Info) Description 11/20/2001 Outpatient Historical [facility] [address] [place] [address] Trell York MD [address] [place] [phone] LUMBAGO (Primary Dx); SEBACEOUS CYST Social History Tobacco Use Types Packs/Day Years Used Date Smoking Tobacco: Never Assessed Comments Unknown Sex and Gender Information Value Date Recorded Sex Assigned at Not on file Legal Sex Female 3:40 AM CAMPAIGN ANALYST Gender Identity Not on file Sexual [...] documented as of this encounter Care Teams Custom Leather Products Maker Relationship Specialty Start Date End Date Areli Gurrola MD [address] [place] [address] PCP - General Specialist 08/12/19 documented as of this encounter
--- OUTSIDE RECORDS SUMMARY | 2025-01-10 16:27 | XMS_ITS | Encounter Summary ---
Author Organization [facility] Address [address] [place] [address] Care Team Providers Care Vest Front Presser Name Role Phone Areli Gurrola MD Primary Care Provider Encounter Details Date Type Department Care Team (Latest Contact Info) Description 07/30/2002 Outpatient Historical [facility] [address] [place] [address] Trell York MD [address] [place] [phone] INSOMNIA NEC (Primary Dx); NEUROTIC DEPRESSION; LUMBAGO Social History Tobacco Use Types Packs/Day Years Used Date Smoking Tobacco: Never Assessed Comments Unknown Sex and Gender Information Value Date Recorded Sex Assigned at Not on file Legal 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
--- OUTSIDE RECORDS SUMMARY | 2025-01-10 16:27 | XMS_ITS | Encounter Summary ---
Author Organization [facility] Address [address] [place] [address] Care Team Providers Care Belt Fixer Name Role Phone Areli Gurrola MD Primary Care Provider Encounter Details Date Type Department Care Team (Latest Contact Info) Description 08/20/2001 Outpatient Historical [facility] [address] [place] [address] Trell York MD [address] [place] [phone] ACUTE PHARYNGITIS (Primary Dx) Social History Tobacco Use Types Packs/Day Years Used Date Smoking Tobacco: Never Assessed Comments Unknown Sex and Gender Information Value Date Recorded Sex Assigned at Not on file Legal 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 Female 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 Gender Identity Not on file Sexual Orientation Not on file documented as of this encounter Plan of Treatment Not on file documented as of this encounter Visit Diagnoses Diagnosis Acute pharyngitis- Primary documented in this encounter Additional Health Concerns Infection Onset Date Last Indicated Resolved Time R/O COVID-19 01/31/2020 01/31/2020 02/02/2020 10:3 2 AM CDT documented as of this encounter Care Teams Belt Fixer Relationship Specialty Start Date End Date Areli Gurrola MD [address] [facility] [place] [place] [address] PCP - General Specialist 08/12/19 documented as of this encounter
--- OUTSIDE RECORDS SUMMARY | 2025-01-10 16:27 | XMS_ITS | Encounter Summary ---
Author Organization [facility] Address [address] [place] [address] Care Team Providers Care Survival Specialist Name Role Phone Areli Gurrola MD Primary Care Provider Encounter Details Date Type Department Care Team (Latest Contact Info) Description 01/20/2002 Outpatient [facility] [address] [place] [address] Trell York MD [address] [place] [address] NEUROTIC DEPRESSION (Primary Dx); ANXIETY STATE NOS; CERVICALGIA; LUMBAGO Social History Tobacco Use Types Packs/Day Years Used Date Smoking Tobacco: Never Assessed Comments Unknown Sex and Gender Information Value Date Recorded Sex Assigned at Not on file Legal Sex Female 3:40 AM CIVIL 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
--- OUTSIDE RECORDS SUMMARY | 2025-01-10 16:27 | XMS_ITS | Encounter Summary ---
Author Organization [facility] Address [address] [place] [address] Care Team Providers Care Change Management Consultant Name Role Phone Areli Gurrola MD Primary Care Provider Encounter Details Date Type Department Care Team (Latest Contact Info) Description 03/20/2002 Outpatient Historical [facility] [address] [place] [address] Trell York MD [address] [place] [phone] ESOPHAGITIS, UNSPECIFIED (Primary Dx); CERVICALGIA; UNSPEC CONSTIPATION Social History Tobacco Use Types Packs/Day Years Used Date Smoking Tobacco: Never Assessed Comments Unknown Sex and Gender Information Value Date Recorded Sex Assigned at Not on file Legal Sex Female 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
--- OUTSIDE RECORDS SUMMARY | 2025-01-10 16:27 | XMS_ITS | Encounter Summary ---
Author Organization [facility] Address [address] [place] [address] Care Team Providers Care Circular Tank Cooper Name Role Phone Areli Gurrola MD Primary Care Provider Encounter Details Date Type Department Care Team (Late st Contact Info) Description 04/14/2002 Outpatient Historical [facility] [address] [place] [address] Miguelangel Mas, NO ADDRESS ON FILE JOINT PAIN-ANKLE (Primary Dx) Social History Tobacco Use Types Packs/Day Years Used Date Smoking Tobacco: Never Assessed Comments Unknown Sex and Gender Information Value Date Recorded Sex Assigned at Not on file Legal 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
--- OUTSIDE RECORDS SUMMARY | 2025-01-10 16:27 | XMS_ITS | Encounter Summary ---
Author Organization [facility] Address [address] [place] [address] Care Team Providers Care Shelf Filler Name Role Phone Areli Gurrola MD Primary Care Provider Encounter Details Date Type Department Care Team (Late st Contact Info) Description 10/30/2002 Emergency [facility] Emergency Department [address] [place] [address] Tomás Jade MD NO ADDRESS ON FILE FEMALE GENITAL SYMPTOMS NOS (Primary Dx) Social History Tobacco Use Types Packs/Day Years Used Date Smoking Tobacco: Never Assessed Comments Unknown Sex and Gender Information Value Date Recorded Sex Assigned at Not on file Legal Sex Female 3:40 AM MANAGER BEAUTY Gender Identity Not on file Sexual Orientation [...] documented as of this encounter Care Teams Shelf Filler Relationship Specialty Start Date End Date Areli Gurrola MD [address] [place] [address] PCP - General Specialist 08/12/19 documented as of this encounter
--- OUTSIDE RECORDS SUMMARY | 2025-01-10 16:27 | XMS_ITS | Encounter Summary ---
Author Organization [facility] Address [address] [place] [address] Care Team Providers Care Branch Director Name Role Phone Areli Gurrola MD Primary Care Provider Encounter Details Date Type Department Care Team (Latest Contact Info) Description 04/10/2002 Outpatient Historical [facility] [place] [address] [facility] [address] [place] [address] Gildardo Ace MD [address] [place] [phone] ABDOMINAL PAIN EPIGASTRIC (Primary Dx) Social History Tobacco Use Types Packs/Day Years Used Date Smoking Tobacco: Never Assessed Comments Unknown Sex and Gender Information Value Date Recorded Sex Assigned at Not on file Legal Sex Female 3:40 AM PUBLIC RELATIONS MANAGER Gender Identity Not on file Sexual [...] documented as of this encounter Care Teams Branch Director Relationship Specialty Start Date End Date Areli Gurrola MD [address] [facility] [place] [address] PCP - General Specialist 08/12/19 documented as of this encounter
--- OUTSIDE RECORDS SUMMARY | 2025-01-10 16:27 | XMS_ITS | Encounter Summary ---
Author Organization [facility] Address [address] [place] [address] Care Team Providers Care Compensation And Benefits Administrator Name Role Phone Areli Gurrola MD Primary Care Provider Encounter Details Date Type Department Care Team (Late st Contact Info) Description 04/14/2002 Outpatient Historical [facility] [address] [place] [address] Miguelangel Mas, NO ADDRESS ON FILE SPRAIN OF ANKLE NOS (Primary Dx) Social History Tobacco Use Types Packs/Day Years Used Date Smoking Tobacco: Never Assessed Comments Unknown Sex and Gender Information Value Date Recorded Sex Assigned at Not on file Legal Sex Female 3:40 AM PRESIDENT & CEO Gender Identity Not on file Sexual Orientation [...] documented as of this encounter Care Teams Compensation And Benefits Administrator Relationship Specialty Start Date End Date Areli Gurrola MD [address] [facility] [place] [address] PCP - General Specialist 08/12/19 documented as of this encounter
--- OUTSIDE RECORDS SUMMARY | 2025-01-10 16:27 | XMS_ITS | Encounter Summary ---
Author Organization [facility] Address [address] [place] [address] Care Team Providers Care Time Lock Expert Name Role Phone Areli Gurrola MD Primary Care Provider Encounter Details Date Type Department Care Team (Latest Contact Info) Description 10/21/2001 Outpatient Historical [facility] [address] [place] [address] Trell York MD [address] [place] [phone] NEUROTIC DEPRESSION (Primary Dx); LUMBAGO; ACUTE LARYNGOTRACH W OBSTR Social History Tobacco Use Types Packs/Day Years Used Date Smoking Tobacco: Never Assessed Comments Unknown Sex and Gender Information Value Date Recorded Sex Assigned at Not on file Legal Sex Female 3:40 AM FIRE EXTINGUISHER CHARGER Gender Identity Not on file Sexual Orientation [...] documented as of this encounter Care Teams Time Lock Expert Relationship Specialty Start Date End Date Areli Gurrola MD [address] [facility] [place] [address] PCP - General Specialist 08/12/19 documented as of this encounter
--- OUTSIDE RECORDS SUMMARY | 2025-01-10 16:27 | XMS_ITS | Encounter Summary ---
Author Organization [facility] Address [address] [place] [address] Care Team Providers Care Skein Winding Operator Name Role Phone Areli Gurrola MD Primary Care Provider Encounter Details Date Type Department Care Team (Latest Contact Info) Description 12/04/2001 Outpatient [facility] [address] [place] [address] Trell York MD [address] [place] [phone] ACUTE BRONCHITIS (Primary Dx); COUGH Social History Tobacco Use Types Packs/Day Years Used Date Smoking Tobacco: Never Assessed Comments Unknown Sex and Gender Information Value Date Recorded Sex Assigned at Not on file Legal Sex Female 3:40 AM CHARGE RN Gender Identity Not on file Sexual [...] as of this encounter Care Teams Skein Winding Operator Relationship Specialty Start Date End Date Areli Gurrola MD [address] [facility] [place] [address] PCP - General Specialist 08/12/19 documented as of this encounter
--- OUTSIDE RECORDS SUMMARY | 2025-01-10 16:27 | XMS_ITS | Encounter Summary ---
Author Organization [facility] Address [address] [place] [address] Care Team Providers Care Buttonhole Maker Hand Name Role Phone Areli Gurrola MD Primary Care Provider Encounter Details Date Type Department Care Team (Latest Contact Info) Description 11/25/2002 Outpatient [facility] [address] [place] [address] Gordon Cabral MD NO ADDRESS ON FILE DYSMENORRHEA (Primary Dx) Social History Tobacco Use Types Packs/Day Years Used Date Smoking Tobacco: Never Assessed Comments Unknown Sex and Gender Information Value Date Recorded Sex Assigned at Not on file Legal Sex Female 3: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 BLOW MOLD MACHINE 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 Gender Identity Not on file Sexual Orientation Not on file documented as of this encounter Plan of Treatment Not on file documented as of this encounter Visit Diagnoses Diagnosis Dysmenorrhea- Primary documented in this encounter Additional Health Concerns Infection Onset Date Last Indicated Resolved Time R/O COVID-19 01/31/2020 01/31/2020 02/02/2020 10:3 2 AM CDT documented as of this encounter Care Teams Buttonhole Maker Hand Relationship Specialty Start Date End Date Areli Gurrola MD [address] [facility] [place] [address] PCP - General Specialist 08/12/19 documented as of this encounter
--- OUTSIDE RECORDS SUMMARY | 2025-01-10 16:27 | XMS_ITS | Encounter Summary ---
Author Organization [facility] Address [address] [place]: [place] [address] Care Team Providers Care Technician'S Helper Name Role Phone Areli Gurrola MD Primary Care Provider Encounter Details Date Type Department Care Team (Late st Contact Info) Description 07/30/2001 Outpatient Historical [place], Trell Pascual MD [address] [place] [phone] Social History Tobacco Use Types Packs/Day Years Used Date Smoking Tobacco: Never Assessed Comments Unknown Sex and Gender Information Value Date Recorded Sex Assigned at Not on file Legal Sex Female 3:40 AM GAS OPERATIONS ANALYST Gender Identity Not on file Sexual Orientation Not on file documented as of this encounter Plan of Treatment Not on file documented as of this encounter Visit Diagnoses Not on filedocumented in this encounter Additional Health Concerns Infection Onset Date Last Indicated Resolved Time R/O COVID-19 01/31/2020 01/31/2020 02/02/2020 10:3 2 AM CDT documented as of this encounter Care Teams Technician'S Helper Relationship Specialty Start Date End Date Areli Gurrola MD [address] [place] [address] PCP - General Specialist 08/12/19 documented as of this encounter
--- OUTSIDE RECORDS SUMMARY | 2025-01-10 16:27 | XMS_ITS | Encounter Summary ---
Author Organization [facility] Address [address] [place] [address] Care Team Providers Care Cello Teacher Name Role Phone Areli Gurrola MD Primary Care Provider Encounter Details Date Type Department Care Team (Latest Contact Info) Description 07/09/2002 Outpatient Historical [facility] [address] [place] [address] Trell York MD [address] [place] [phone] OTHER MALAISE AND FATIGUE (Primary Dx); CERVICALGIA Social History Tobacco Use Types Packs/Day Years Used Date Smoking Tobacco: Never Assessed Comments Unknown Sex and Gender Information Value Date Recorded Sex Assigned at Not on file Legal Sex Female 3:40 AM CLIENT STRATEGIST Gender Identity Not on file Sexual Orientation [...] documented as of this encounter Care Teams Cello Teacher Relationship Specialty Start Date End Date Areli Gurrola MD [address] [facility] [facility] [place] [address] PCP - General Specialist 08/12/19 documented as of this encounter
--- OUTSIDE RECORDS SUMMARY | 2025-01-10 16:27 | XMS_ITS | Encounter Summary ---
Author Organization [facility] Address [address] [place] [address] Care Team Providers Care Director Security Risk Management Name Role Phone Areli Gurrola MD Primary Care Provider Encounter Details Date Type Department Care Team (Latest Contact Info) Description 08/25/2002 Outpatient Historical [facility] [address] [place] [address] Trell York MD [address] [place] [phone] INSOMNIA NEC (Primary Dx); OTHER MALAISE AND FATIGUE; NEUROTIC DEPRESSION; CERVICALGIA Social History Tobacco Use Types Packs/Day Years Used Date Smoking Tobacco: Never Assessed Comments Unknown Sex and Gender Information Value Date Recorded Sex Assigned at Not on file Legal Sex Female 3:40 AM SAND SYSTEM OPERATOR Gender Identity Not on file [...] as of this encounter Care Teams Director Security Risk Management Relationship Specialty Start Date End Date Areli Gurrola MD [address] [facility] [place] [address] PCP - General Specialist 08/12/19 documented as of this encounter
--- OUTSIDE RECORDS SUMMARY | 2025-01-10 16:27 | XMS_ITS | Encounter Summary ---
Author Organization [facility] Address [address] [place] [address] Care Team Providers Care Records Management Clerk Name Role Phone Areli Gurrola MD Primary Care Provider Encounter Details Date Type Department Care Team (Latest Contact Info) Description 01/09/2002 Outpatient Historical [facility] [address] [place] [address] Trell York MD [address] [place] [phone] HEADACHE (Primary Dx); CERVICALGIA Social History Tobacco Use Types Packs/Day Years Used Date Smoking Tobacco: Never Assessed Comments Unknown Sex and Gender Information Value Date Recorded Sex Assigned at Not on file Legal Sex Female 3:40 AM CRIMINAL DEFENSE ATTORNEY Gender Identity Not on file Sexual Orientation Not on file documented as of this encounter Plan of Treatment Not on file documented as of this encounter Visit Diagnoses Diagnosis Headache(784.0)- Primary Headache Cervicalgia documented in this encounter Additional Health Concerns Infection Onset Date Last Indicated Resolved Time R/O COVID-19 01/31/2020 01/31/2020 02/02/2020 10:3 2 AM CDT documented as of this encounter Care Teams Records Management Clerk Relationship Specialty Start Date End Date Areli Gurrola MD [address] [place] [address] PCP - General Specialist 08/12/19 documented as of this encounter
--- OUTSIDE RECORDS SUMMARY | 2025-01-10 16:27 | XMS_ITS | Encounter Summary ---
Author Organization [facility] Address [address] [place] [address] Care Team Providers Care Mailroom Clerk Name Role Phone Areli Gurrola MD Primary Care Provider Encounter Details Date Type Department Care Team (Latest Contact Info) Description 07/29/2001 Outpatient Historical [facility] [address] [place] [address] Trell York MD [address] [place] [phone] COMMON MIGRAINE W/O MENTN INTRACT (Primary Dx); LUMBAGO Social History Tobacco Use Types Packs/Day Years Used Date Smoking Tobacco: Never Assessed Comments Unknown Sex and Gender Information Value Date Recorded Sex Assigned at Not on file Legal Sex Female 3:40 AM CARPET LAYER HELPER Gender Identity Not on file Sexual [...] documented as of this encounter Care Teams Mailroom Clerk Relationship Specialty Start Date End Date Areli Gurrola MD [address] [facility] [place] [address] PCP - General Specialist 08/12/19 documented as of this encounter
--- OUTSIDE RECORDS SUMMARY | 2025-01-10 16:27 | XMS_ITS | Encounter Summary ---
Author Organization [facility] Address [address] [place] [address] Care Team Providers Care Narrow Gauge Brakeman Name Role Phone Areli Gurrola MD Primary Care Provider Encounter Details Date Type Department Care Team (Latest Contact Info) Description 10/31/2002 Outpatient Historical [facility] [place] [address] [place] [address] Gordon Cabral MD NO ADDRESS ON FILE SURGERY FOLLOWUP, UNSPEC (Primary Dx) Social History Tobacco Use Types Packs/Day Years Used Date Smoking Tobacco: Never Assessed Comments Unknown Sex and Gender Information Value Date Recorded Sex Assigned at Not on file Legal Sex Female 3:40 AM STARCH COOKER Gender Identity Not on file Sexual Orientation [...] documented as of this encounter Care Teams Narrow Gauge Brakeman Relationship Specialty Start Date End Date Areli Gurrola MD [address] [facility] [place] [address] PCP - General Specialist 08/12/19 documented as of this encounter
--- OUTSIDE RECORDS SUMMARY | 2025-01-10 16:27 | XMS_ITS | Encounter Summary ---
Author Organization [facility] Address [address] [place] [address] Care Team Providers Care Mill Operator Head Name Role Phone Areli Gurrola MD Primary Care Provider Encounter Details Date Type Department Care Team (Latest Contact Info) Description 10/01/2002 Outpatient Historical [facility] [address] [place] [address] Trell York MD [address] [place] [phone] ACUTE SINUSITIS NOS (Primary Dx) Social History Tobacco Use Types Packs/Day Years Used Date Smoking Tobacco: Never Assessed Comments Unknown Sex and Gender Information Value Date Recorded Sex Assigned at Not on file Legal Sex Female 3:40 AM CITY PLANNING ENGINEER Gender Identity Not on file Sexual [...] documented as of this encounter Care Teams Mill Operator Head Relationship Specialty Start Date End Date Areli Gurrola MD [address] [facility] [place] [address] PCP - General Specialist 08/12/19 documented as of this encounter
[2025-01-10 16:33] VITALS: BP 149/81; PULSE 82; O2SAT 99
== END 2025-01-10 16:33 | disposition home or self-care (01) ==
PROVIDERS: Emergency Provider Emergency Medicine; PCP Physician Assistant
DX: F18.10 Inhalant abuse, uncomplicated (principal); F41.9 Anxiety disorder, unspecified; F17.290 Nicotine dependence, other tobacco product, uncomplicated; F17.210 Nicotine dependence, cigarettes, uncomplicated; I50.9 Heart failure, unspecified; E11.40 Type 2 diabetes mellitus with diabetic neuropathy, unspecified
CPT/HCPCS: 99283; J9999

== ENCOUNTER 2025-01-13 21:52 | Emergency (ER) | payer MEDICARE, MEDICAID, SELFPAY ==
--- OUTSIDE RECORDS SUMMARY | 2024-02-02 04:00 | XMS_ITS ---
Author Organization [facility] Address [address] [place] [address] Care Team Providers Care Wire Frame Lampshade Maker Name Role Phone Joseph Lewis MD Primary Care Provider Zane Joiner Unavailable [phone] ELROY BOOTHE Unavailable Unavailable Migration, Provider Unavailable Unavailable REASON FOR VISIT EMR-Luke Encounters Encounter Location Date Provider Diagnosis Migrated_Facility 0 0 02/02/2024 Provider Migration Plan Of Treatment Medication Medication Name Sig Start Date Stop Date Notes Zubsolv 5.7-1.4 mg sublingual tablet, sublingual 1 Tablet Twice a Day 02/20/2019 03/22/2019 *Reorder from [facility] for eRx and Interaction Alerts* Progress Notes * Kay GAMBOA MDOB:1965 (59 yo F)Acc No.[id number]:02/02/2024 Patient: Elva Kay RODRIGUEZ :1965 A ge:58 Y S ex:Female Address:[address], [address] [place] [address] * Refills Stop Zubsolv 5.7-1.4 mg sublingual tablet, sublingual, 1 Tablet Twice a Day Subjective: * Chief Complaints: * E MR-Luke * * Date:
--- OUTSIDE RECORDS SUMMARY | 2024-02-03 04:00 | XMS_ITS ---
Author Organization [facility] Address [address] [place] [address] Care Team Providers Care Computed Tomography Scanner Operator Name Role Phone Joseph Lewis MD Primary Care Provider Zane Joiner Unavailable [phone] ELROY BOOTHE Unavailable Unavailable Migration, Provider Unavailable [...] * Kay GAMBOA MDOB:1965 (59 yo F)Acc No.[id number]:02/03/2024 Patient: Elva CADEKay BIGGS :1965 A ge:58 Y S ex:Female Address:[address], [address] [place] [address] Subjective: * Chief Complaints: * E MR-Luke [...]
[2024-09-18 15:42] VITALS: BP 147/78; BMI 37.0
[2025-01-13 21:52] VITALS: BP 147/74; PULSE 99; RESP 18; TEMP 37.7; O2SAT 95
--- OUTSIDE RECORDS SUMMARY | 2025-01-13 21:58 | XMS_ITS | Encounter Summary ---
Author Organization [facility] Address [address]: [place] [address] Care Team Providers Care Rides Attendant Name Role Phone Areli Gurrola MD [...] file Legal Sex Female 3:40 AM SENIOR OFFICE ASSISTANT Gender Identity Not on file Sexual Orientation Not on file documented as of this encounter Plan of Treatment Not on file documented as of this encounter Visit Diagnoses Not on filedocumented in this encounter Additional Health Concerns Infection Onset Date Last Indicated Resolved Time R/O COVID-19 01/31/2020 01/31/2020 02/02/2020 10:3 2 AM CDT documented as of this encounter Care Teams Rides Attendant Relationship Specialty Start Date End Date Areli Gurrola MD [address] [facility] [place] [address] PCP - General Specialist 08/12/19 documented as of this encounter
--- OUTSIDE RECORDS SUMMARY | 2025-01-13 21:58 | XMS_ITS | Encounter Summary ---
Author Organization [facility] Address [address] [place] [address] Care Team Providers Care Missile Mechanic Name Role Phone Areli Gurrola MD Primary Care Provider Encounter Details Date Type Department Care Team (Latest Contact Info) Description 04/23/2000 Outpatient [facility] [address] [place] [address] Trell York MD [address] [place] [phone] Cervicalgia (Primary Dx); Other convulsions Social History Tobacco Use Types Packs/Day Years Used Date Smoking Tobacco: Never Assessed Comments Unknown Sex and Gender Information Value Date Recorded Sex Assigned at Not on file Legal Sex Female 3:40 AM RN TRANSPLANT Gender Identity Not on file Sexual Orientation Not on file documented as of this encounter Plan of Treatment Not on file documented as of this encounter Visit Diagnoses Diagnosis Cervicalgia- Primary Other convulsions documented in this encounter Additional Health Concerns Infection Onset Date Last Indicated Resolved Time R/O COVID-19 01/31/2020 01/31/2020 02/02/2020 10:3 2 AM CDT documented as of this encounter Care Teams Missile Mechanic Relationship Specialty Start Date End Date Areli Gurrola MD [address] [facility] [place] [address] PCP - General Specialist 08/12/19 documented as of this encounter
--- OUTSIDE RECORDS SUMMARY | 2025-01-13 21:58 | XMS_ITS | Encounter Summary ---
Author Organization [facility] Address [address] [place] [address] Care Team Providers Care Grounds Restoration Specialist Name Role Phone Areli Gurrola MD Primary Care Provider Encounter Details Date Type Department Care Team (Latest Contact Info) Description 06/07/2000 Outpatient Historical [facility] [address] [place] [address] Trell York MD [address] [place] [phone] Lumbago (Primary Dx); Open wound of foot except toe(s) alone, without mention of complication Social History Tobacco Use Types Packs/Day Years Used Date Smoking Tobacco: Never Assessed Comments Unknown Sex and Gender Information Value Date Recorded Sex Assigned at Not on file Legal Sex Female 3:40 AM SAMPLE PULLER Gender Identity Not on file Sexual [...] documented as of this encounter Care Teams Grounds Restoration Specialist Relationship Specialty Start Date End Date Areli Gurrola MD [address] [facility] [place] [address] PCP - General Specialist 08/12/19 documented as of this encounter
--- OUTSIDE RECORDS SUMMARY | 2025-01-13 21:58 | XMS_ITS | Encounter Summary ---
Author Organization [facility] Address [address] [place] [address] Care Team Providers Care Front Desk Auxiliary Name Role Phone Areli Gurrola MD Primary Care Provider Encounter Details Date Type Department Care Team (Latest Contact Info) Description 03/14/2000 Outpatient Historical [facility] [address] [place] [address] Trell York MD [address] [place] [phone] Unspecified disorder of female genital organs (Primary Dx); Lumbago Social History Tobacco Use Types Packs/Day Years Used Date Smoking Tobacco: Never Assessed Comments Unknown Sex and Gender Information Value Date Recorded Sex Assigned at Not on file Legal Sex Female 3:40 AM QUANTITATIVE ANALYST MARKETING Gender Identity Not on file Sexual Orientation [...] documented as of this encounter Care Teams Front Desk Auxiliary Relationship Specialty Start Date End Date Areli Gurrola MD [address] [facility] [place] [address] PCP - General Specialist 08/12/19 documented as of this encounter
--- OUTSIDE RECORDS SUMMARY | 2025-01-13 21:58 | XMS_ITS | Encounter Summary ---
Author Organization [facility] Address [address] Att[address]: [place] [address] Care Team Providers Care Wool Hat Flanger Name Role Phone Areli Gurrola MD Primary [...] on file Legal Sex Female 3:40 AM CARE MANAGEMENT COORDINATOR Gender Identity Not on file Sexual Orientation Not on file documented as of this encounter Plan of Treatment Not on file documented as of this encounter Visit Diagnoses Not on filedocumented in this encounter Additional Health Concerns Infection Onset Date Last Indicated Resolved Time R/O COVID-19 01/31/2020 01/31/2020 02/02/2020 10:3 2 AM CDT documented as of this encounter Care Teams Wool Hat Flanger Relationship Specialty Start Date End Date Areli Gurrola MD [address] [facility] [place] [address] PCP - General Specialist 08/12/19 documented as of this encounter
--- OUTSIDE RECORDS SUMMARY | 2025-01-13 21:59 | XMS_ITS | Encounter Summary ---
Author Organization [facility] Address [address] [place] [address] Care Team Providers Care Supervisor Fusing Room Name Role Phone Areli Gurrola MD Primary Care Provider Encounter Details Date Type Department Care Team (Latest Contact Info) Description 09/01/1999 Outpatient Historical [facility] Joseph Ramos MD [address] [place] [address] Pain in joint, hand (Primary Dx); Follow-up examination following surgery Social History Tobacco Use Types Packs/Day Years Used Date Smoking Tobacco: Never Assessed Comments Unknown Sex and Gender Information Value Date Recorded Sex Assigned at Not on file Legal Sex Female 3:40 AM SENIOR SAFETY SUPPORT MANAGER Gender Identity Not on file Sexual [...] as of this encounter Care Teams Supervisor Fusing Room Relationship Specialty Start Date End Date Areli Gurrola MD [address] [place] [address] PCP - General Specialist 08/12/19 documented as of this encounter
--- OUTSIDE RECORDS SUMMARY | 2025-01-13 21:59 | XMS_ITS | Encounter Summary ---
Author Organization [facility] Address [address] [place] [address] Care Team Providers Care Classified Advertising Supervisor Name Role Phone Areli Gurrola MD Primary Care Provider Encounter Details Date Type Department Care Team (Latest Contact Info) Description 07/27/2000 Outpatient Historical [facility] [address] [place] [address] Trell York MD [address] [place] [phone] Unspecified disorder of female genital organs (Primary Dx); Cervicalgia Social History Tobacco Use Types Packs/Day Years Used Date Smoking Tobacco: Never Assessed Comments Unknown Sex and Gender Information Value Date Recorded Sex Assigned at Not on file Legal Sex Female 3:40 AM EMBEDDED FIRMWARE ENGINEER Gender Identity Not on file Sexual [...] documented as of this encounter Care Teams Classified Advertising Supervisor Relationship Specialty Start Date End Date Areli Gurrola MD [address] [place] [address] PCP - General Specialist 08/12/19 documented as of this encounter
--- OUTSIDE RECORDS SUMMARY | 2025-01-13 21:59 | XMS_ITS | Encounter Summary ---
Author Organization [facility] Address [address] [place] [address] Care Team Providers Care Powerhouse Mechanic Apprentice Name Role Phone Areli Gurrola MD Primary Care Provider Encounter Details Date Type Department Care Team (Latest Contact Info) Description 05/09/1999 Outpatient Historical [facility] [address] [place] [address] Trell York MD [address] [place] [phone] Cervical spinal stenosis (Primary Dx); Contusion of elbow Social History Tobacco Use Types Packs/Day Years Used Date Smoking Tobacco: Never Assessed Comments Unknown Sex and Gender Information Value Date Recorded Sex Assigned at Not on file Legal Sex Female 3:40 AM METHODS SPECIALIST ENGINEER Gender Identity Not on file Sexual [...] documented as of this encounter Care Teams Powerhouse Mechanic Apprentice Relationship Specialty Start Date End Date Areli Gurrola MD [address] [place] [address] PCP - General Specialist 08/12/19 documented as of this encounter
--- OUTSIDE RECORDS SUMMARY | 2025-01-13 21:59 | XMS_ITS | Encounter Summary ---
Author Organization [facility] Address [address] [place] [address] Care Team Providers Care Two Needle Machine Operator Name Role Phone Areli Gurrola MD Primary Care Provider Encounter Details Date Type Department Care Team (Late st Contact Info) Description 06/11/2001 Outpatient Historical [facility] [address] [place] [address] Social History Tobacco Use Types Packs/Day Years Used Date Smoking Tobacco: Never Assessed Comments Unknown Sex and Gender Information Value Date Recorded Sex Assigned at Not on file Legal Sex Female 3:40 AM SQUAD SERGEANT Gender Identity Not on file Sexual Orientation Not on file documented as of this encounter Plan of Treatment Not on file documented as of this encounter Visit Diagnoses Not on filedocumented in this encounter Additional Health Concerns Infection Onset Date Last Indicated Resolved Time R/O COVID-19 01/31/2020 01/31/2020 02/02/2020 10:3 2 AM CDT documented as of this encounter Care Teams Two Needle Machine Operator Relationship Specialty Start Date End Date Areli Gurrola MD [address] [place] [address] PCP - General Specialist 08/12/19 documented as of this encounter
--- OUTSIDE RECORDS SUMMARY | 2025-01-13 21:59 | XMS_ITS | Encounter Summary ---
Author Organization [facility] Address [address] [place] [address] Care Team Providers Care Laborer Pie Bakery Name Role Phone Areli Gurrola MD Primary Care Provider Encounter Details Date Type Department Care Team (Latest Contact Info) Description 07/20/1999 Outpatient Historical [facility] Joseph Ramos MD [address] [place] [address] Pain in joint, hand (Primary Dx) Social History Tobacco Use Types Packs/Day Years Used Date Smoking Tobacco: Never Assessed Comments Unknown Sex and Gender Information Value Date Recorded Sex Assigned at Not on file Legal Sex Female 3:40 AM CAPTAIN FISHING VESSEL Gender Identity Not on file Sexual Orientation [...] documented as of this encounter Care Teams Laborer Pie Bakery Relationship Specialty Start Date End Date Areli Gurrola MD [address] [facility] [place] [address] PCP - General Specialist 08/12/19 documented as of this encounter
--- OUTSIDE RECORDS SUMMARY | 2025-01-13 21:59 | XMS_ITS | Encounter Summary ---
Author Organization [facility] Address [address] [place] [address] Care Team Providers Care Avionics Electrical Engineer Name Role Phone Areli Gurrola MD Primary Care Provider Encounter Details Date Type Department Care Team (Latest Contact Info) Description 06/08/1999 Outpatient Historical [facility] Doyline, Trell Pascual MD [address] [place] [address] Obesity, unspecified (Primary Dx); Encounter for long-term (current) use of other medications Social History Tobacco Use Types Packs/Day Years Used Date Smoking Tobacco: Never Assessed Comments Unknown Sex and Gender Information Value Date Recorded Sex Assigned at Not on file Legal Sex Female 3:40 AM EVAPORATIVE COOLER INSTALLER Gender Identity Not on file Sexual Orientation [...] documented as of this encounter Care Teams Avionics Electrical Engineer Relationship Specialty Start Date End Date Areli Gurrola MD [address] [facility] [place] [place] [address] PCP - General Specialist 08/12/19 documented as of this encounter
--- OUTSIDE RECORDS SUMMARY | 2025-01-13 21:59 | XMS_ITS | Encounter Summary ---
Author Organization [facility] Address [address] [place] [address] Care Team Providers Care Manager Bakery Name Role Phone Areli Gurrola MD Primary Care Provider Encounter Details Date Type Department Care Team (Late st Contact Info) Description 03/25/1999 Outpatient Historical [facility] Social History Tobacco Use Types Packs/Day Years Used Date Smoking Tobacco: Never Assessed Comments Unknown Sex and Gender Information Value Date Recorded Sex Assigned at Not on file Legal Sex Female 3:40 AM MAIL SORTING SUPERVISOR Gender Identity Not on file Sexual Orientation Not on file documented as of this encounter Plan of Treatment Not on file documented as of this encounter Visit Diagnoses Not on filedocumented in this encounter Additional Health Concerns Infection Onset Date Last Indicated Resolved Time R/O COVID-19 01/31/2020 01/31/2020 02/02/2020 10:3 2 AM CDT documented as of this encounter Care Teams Manager Bakery Relationship Specialty Start Date End Date Areli Gurrola MD [address] [place] [address] PCP - General Specialist 08/12/19 documented as of this encounter
--- OUTSIDE RECORDS SUMMARY | 2025-01-13 21:59 | XMS_ITS | Encounter Summary ---
Author Organization [facility] Address [address] [place] [address] Care Team Providers Care Engineering Programmer Name Role Phone Areli Gurrola MD Primary Care Provider Encounter Details Date Type Department Care Team (Latest Contact Info) Description 01/30/2000 Outpatient Historical [facility] [address] [place] [address] Trell York MD [address] [place] [phone] Lumbago (Primary Dx) Social History Tobacco Use Types Packs/Day Years Used Date Smoking Tobacco: Never Assessed Comments Unknown Sex and Gender Information Value Date Recorded Sex Assigned at Not on file Legal Sex Female 3:40 AM TRAFFIC ENGINEERING TECHNICIAN Gender Identity Not on file Sexual Orientation Not on file documented as of this encounter Plan of Treatment Not on file documented as of this encounter Visit Diagnoses Diagnosis Lumbago- Primary documented in this encounter Additional Health Concerns Infection Onset Date Last Indicated Resolved Time R/O COVID-19 01/31/2020 01/31/2020 02/02/2020 10:3 2 AM CDT documented as of this encounter Care Teams Engineering Programmer Relationship Specialty Start Date End Date Areli Gurrola MD [address] [facility] [place] [address] PCP - General Specialist 08/12/19 documented as of this encounter
--- OUTSIDE RECORDS SUMMARY | 2025-01-13 21:59 | XMS_ITS | Encounter Summary ---
Author Organization [facility] Address [address] [place] [address] Care Team Providers Care System Programmer Name Role Phone Areli Gurrola MD Primary Care Provider Encounter Details Date Type Department Care Team (Latest Contact Info) Description 11/13/2000 [facility]patient [facility] [address] [place] [address] Trell York MD [address] [place] [phone] Insomnia, unspecified (Primary Dx); Lumbago Social History Tobacco Use Types Packs/Day Years Used Date Smoking Tobacco: Never Assessed Comments Unknown Sex and Gender Information Value Date Recorded Sex Assigned at Not on file Legal Sex Female 3:40 AM TELEMETRY NURSE Gender Identity Not on file Sexual [...] documented as of this encounter Care Teams System Programmer Relationship Specialty Start Date End Date Areli Gurrola MD [address] [facility] [place] [place] [address] PCP - General Specialist 08/12/19 documented as of this encounter
--- OUTSIDE RECORDS SUMMARY | 2025-01-13 21:59 | XMS_ITS | Encounter Summary ---
Author Organization [facility] Address [address] [place] [address] Care Team Providers Care Flume Ride Operator Name Role Phone Areli Gurrola MD Primary Care Provider Encounter Details Date Type Department Care Team (Latest Contact Info) Description 12/05/2000 Outpatient Historical [facility] [address] [place] [address] Trell York MD [address] [place] [phone] Lumbago (Primary Dx); Cervicalgia; Pain in joint, pelvic region and thigh Social History Tobacco Use Types Packs/Day Years Used Date Smoking Tobacco: Never Assessed Comments Unknown Sex and Gender Information Value Date Recorded Sex Assigned at Not on file Legal Sex Female 3:40 AM TAR LEVELER Gender Identity Not on file Sexual Orientation [...] documented as of this encounter Care Teams Flume Ride Operator Relationship Specialty Start Date End Date Areli Gurrola MD [address] [place] [address] PCP - General Specialist 08/12/19 documented as of this encounter
--- OUTSIDE RECORDS SUMMARY | 2025-01-13 21:59 | XMS_ITS | Encounter Summary ---
Author Organization [facility] Address [address] [place] [address] Care Team Providers Care Sausage Maker Name Role Phone Areli Gurrola MD Primary Care Provider Encounter Details Date Type Department Care Team (Latest Contact Info) Description 11/28/[address] [facility] [address] [place] [address] Trell York MD [address] [place] [phone] Lumbago (Primary Dx) Social History Tobacco Use Types Packs/Day Years Used Date Smoking Tobacco: Never Assessed Comments Unknown Sex and Gender Information Value Date Recorded Sex Assigned at Not on file Legal Sex Female 3:[address]AN TECHNICIAN Gender Identity Not on file Sexual Orientation Not on file documented as of this encounter Plan of Treatment Not on file documented as of this encounter Visit Diagnoses Diagnosis Lumbago- Primary documented in this encounter Additional Health Concerns Infection Onset Date Last Indicated Resolved Time R/O COVID-19 01/31/2020 01/31/2020 02/02/2020 10:3 2 AM CDT documented as of this encounter Care Teams Sausage Maker Relationship Specialty Start Date End Date Areli Gurrola MD [address] [facility] [place] [address] PCP - General Specialist 08/12/19 documented as of this encounter
--- OUTSIDE RECORDS SUMMARY | 2025-01-13 21:59 | XMS_ITS | Encounter Summary ---
Author Organization [facility] Address [address] [facility] Attn: [place] [address] Care Team Providers Care Zipper Machine Operator Name Role Phone Areli Gurrola MD Primary Care Provider Encounter Details Date Type Department Care Team (Late st Contact Info) Description 08/24/1999 Outpatient Historical Joseph Ramos MD [address] [place] [address] Social History Tobacco Use Types Packs/Day Years Used Date Smoking Tobacco: Never Assessed Comments Unknown Sex and Gender Information Value Date Recorded Sex Assigned at Not on file Legal Sex Female 3:40 AM VETERAN APPEALS REVIEWER Gender Identity Not on file Sexual Orientation Not on file documented as of this encounter Plan of Treatment Not on file documented as of this encounter Visit Diagnoses Not on filedocumented in this encounter Additional Health Concerns Infection Onset Date Last Indicated Resolved Time R/O COVID-19 01/31/2020 01/31/2020 02/02/2020 10:3 2 AM CDT documented as of this encounter Care Teams Zipper Machine Operator Relationship Specialty Start Date End Date Areli Gurrola MD [address] [facility] [place] [address] PCP - General Specialist 08/12/19 documented as of this encounter
--- OUTSIDE RECORDS SUMMARY | 2025-01-13 21:59 | XMS_ITS | Encounter Summary ---
Author Organization [facility] Address [address] [place] [address] Care Team Providers Care Auger Mill Operator Name Role Phone Areli Gurrola MD Primary Care Provider Encounter Details Date Type Department Care Team (Latest Contact Info) Description 10/20/1999 Outpatient Historical [facility] Joseph Ramos MD [address] [place] [address] Carpal tunnel syndrome (Primary Dx) Social History Tobacco Use Types Packs/Day Years Used Date Smoking Tobacco: Never Assessed Comments Unknown Sex and Gender Information Value Date Recorded Sex Assigned at Not on file Legal Sex Female 3:40 AM ELECTRICAL ASSEMBLER Gender Identity Not on file Sexual [...] documented as of this encounter Care Teams Auger Mill Operator Relationship Specialty Start Date End Date Areli Gurrola MD [address] [facility] [place] [address] PCP - General Specialist 08/12/19 documented as of this encounter
--- OUTSIDE RECORDS SUMMARY | 2025-01-13 21:59 | XMS_ITS | Encounter Summary ---
Author Organization [facility] Address [address] [place] [address] Care Team Providers Care Sleeve Fixer Name Role Phone Areli Gurrola MD Primary Care Provider Encounter Details Date Type Department Care Team (Latest Contact Info) Description 06/08/1999 Outpatient [facility] [address] [place] [address] Trell York MD [address] [place] [phone] Carpal tunnel syndrome (Primary Dx); Sprain of neck; Obesity, unspecified Social History Tobacco Use Types Packs/Day Years Used Date Smoking Tobacco: Never Assessed Comments Unknown Sex and Gender Information Value Date Recorded Sex Assigned at Not on file Legal Sex Female 3:40 AM COMPUTER FORENSIC EXAMINER Gender Identity Not on file Sexual Orientation [...] documented as of this encounter Care Teams Sleeve Fixer Relationship Specialty Start Date End Date Areli Gurrola MD [address] [facility] [place] [address] PCP - General Specialist 08/12/19 documented as of this encounter
--- OUTSIDE RECORDS SUMMARY | 2025-01-13 21:59 | XMS_ITS | Encounter Summary ---
Author Organization [facility] Address [address] [place] [address] Care Team Providers Care Supplier Engineer Name Role Phone Areli Gurrola MD Primary Care Provider Encounter Details Date Type Department Care Team (Latest Contact Info) Description 03/27/2001 Outpatient Historical [facility] [address] [place] [address] Trell York MD [address] [place] [phone] CERVICALGIA (Primary Dx); NEUROTIC DEPRESSION; LUMBAGO Social History Tobacco Use Types Packs/Day Years Used Date Smoking Tobacco: Never Assessed Comments Unknown Sex and Gender Information Value Date Recorded Sex Assigned at Not on file Legal Sex Female 3:40 AM TRAUMA DIRECTOR Gender Identity Not on file Sexual [...] documented as of this encounter Care Teams Supplier Engineer Relationship Specialty Start Date End Date Areli Gurrola MD [address] [place] [address] PCP - General Specialist 08/12/19 documented as of this encounter
--- OUTSIDE RECORDS SUMMARY | 2025-01-13 21:59 | XMS_ITS | Encounter Summary ---
Author Organization [facility] Address [address] [facility] Attn: [place] [address] Care Team Providers Care Shift Nurse Manager Name Role Phone Areli Gurrola MD [...] on file Legal Sex Female 3:40 AM SHELL TRIM TOOL SETTER Gender Identity Not on file Sexual Orientation Not on file documented as of this encounter Plan of Treatment Not on file documented as of this encounter Visit Diagnoses Not on filedocumented in this encounter Additional Health Concerns Infection Onset Date Last Indicated Resolved Time R/O COVID-19 01/31/2020 01/31/2020 02/02/2020 10:3 2 AM CDT documented as of this encounter Care Teams Shift Nurse Manager Relationship Specialty Start Date End Date Areli Gurrola MD [address] [facility] [place] [address] PCP - General Specialist 08/12/19 documented as of this encounter
--- OUTSIDE RECORDS SUMMARY | 2025-01-13 21:59 | XMS_ITS | Encounter Summary ---
Author Organization [facility] Address [address] [place] [address] Care Team Providers Care Publishing Specialist Name Role Phone Areli Gurrola MD Primary Care Provider Encounter Details Date Type Department Care Team (Late st Contact Info) Description 05/03/1999 Outpatient Historical [facility] [place], Gibran Lynn MD [address] [facility] [address] [place] [address] Cramp of limb (Primary Dx) Social History Tobacco Use Types Packs/Day Years Used Date Smoking Tobacco: Never Assessed Comments Unknown Sex and Gender Information Value Date Recorded Sex Assigned at Not on file Legal Sex Female 3:40 AM LMSW Gender Identity Not on file Sexual Orientation Not on file documented as of this encounter Plan of Treatment Not on file documented as of this encounter Visit Diagnoses Diagnosis Cramp of limb- Primary documented in this encounter Additional Health Concerns Infection Onset Date Last Indicated Resolved Time R/O COVID-19 01/31/2020 01/31/2020 02/02/2020 10:3 2 AM CDT documented as of this encounter Care Teams Publishing Specialist Relationship Specialty Start Date End Date Areli Gurrola MD [address] [place] [address] PCP - General Specialist 08/12/19 documented as of this encounter
--- OUTSIDE RECORDS SUMMARY | 2025-01-13 21:59 | XMS_ITS | Encounter Summary ---
Author Organization [facility] Address [address] [facility] Attn: [place] [address] Care Team Providers Care Emergency Room Physician Assistant Name Role Phone Areli Gurrola MD Primary Care Provider Encounter Details Date Type Department Care Team (Late st Contact Info) Description 11/16/1999 Outpatient Historical Joseph Ramos MD [address] [place] [address] Social History Tobacco Use Types Packs/Day Years Used Date Smoking Tobacco: Never Assessed Comments Unknown Sex and Gender Information Value Date Recorded Sex Assigned at Not on file Legal Sex Female 3:40 AM SPLITTER OPERATOR Gender Identity Not on file Sexual Orientation Not on file documented as of this encounter Plan of Treatment Not on file documented as of this encounter Visit Diagnoses Not on filedocumented in this encounter Additional Health Concerns Infection Onset Date Last Indicated Resolved Time R/O COVID-19 01/31/2020 01/31/2020 02/02/2020 10:3 2 AM CDT documented as of this encounter Care Teams Emergency Room Physician Assistant Relationship Specialty Start Date End Date Areli Gurrola MD [address] [facility] [place] [address] PCP - General Specialist 08/12/19 documented as of this encounter
--- OUTSIDE RECORDS SUMMARY | 2025-01-13 21:59 | XMS_ITS | Encounter Summary ---
Author Organization [facility] Address [address] [place] [address] Care Team Providers Care Corporate Communications Specialist Name Role Phone Areli Gurrola MD Primary Care Provider Encounter Details Date Type Department Care Team (Latest Contact Info) Description 04/25/2001 Outpatient Historical [facility] [address] [place] [address] Trell York MD [address] [place] [phone] ESOPHAGITIS, UNSPECIFIED (Primary Dx); LUMBAGO; SEBACEOUS CYST Social History Tobacco Use Types Packs/Day Years Used Date Smoking Tobacco: Never Assessed Comments Unknown Sex and Gender Information Value Date Recorded Sex Assigned at Not on file Legal Sex Female 3:40 AM ALLEY TENDER Gender Identity Not on file Sexual [...] as of this encounter Care Teams Corporate Communications Specialist Relationship Specialty Start Date End Date Areli Gurrola MD [address] [place] [address] PCP - General Specialist 08/12/19 documented as of this encounter
--- OUTSIDE RECORDS SUMMARY | 2025-01-13 21:59 | XMS_ITS | Encounter Summary ---
Author Organization [facility] Address [address] [place] [address] Care Team Providers Care Aircraft Machinist Name Role Phone Areli Gurrola MD Primary Care Provider Encounter Details Date Type Department Care Team (Latest Contact Info) Description 08/09/[address] [facility] [address] [place] [address] Trell York MD [address] [place] [phone] Stricture of cervix (Primary Dx) Social History Tobacco Use Types Packs/Day Years Used Date Smoking Tobacco: Never Assessed Comments Unknown Sex and Gender Information Value Date Recorded Sex Assigned at Not on file Legal Sex Female 3:40 AM EXTENSION ASSOCIATE Gender Identity Not on file Sexual [...] as of this encounter Care Teams Aircraft Machinist Relationship Specialty Start Date End Date Areli Gurrola MD [address] [facility] [place] [address] PCP - General Specialist 08/12/19 documented as of this encounter
--- OUTSIDE RECORDS SUMMARY | 2025-01-13 21:59 | XMS_ITS | Encounter Summary ---
Author Organization [facility] Address [address] [place] [address] Care Team Providers Care Champion Of Sustainable Design Name Role Phone Areli Gurrola MD Primary Care Provider Encounter Details Date Type Department Care Team (Late st Contact Info) Description 03/30/1999 Outpatient Historical [facility] Social History Tobacco Use Types Packs/Day Years Used Date Smoking Tobacco: Never Assessed Comments Unknown Sex and Gender Information Value Date Recorded Sex Assigned at Not on file Legal Sex Female 3:40 AM BARBER STYLIST Gender Identity Not on file Sexual Orientation Not on file documented as of this encounter Plan of Treatment Not on file documented as of this encounter Visit Diagnoses Not on filedocumented in this encounter Additional Health Concerns Infection Onset Date Last Indicated Resolved Time R/O COVID-19 01/31/2020 01/31/2020 02/02/2020 10:3 2 AM CDT documented as of this encounter Care Teams Champion Of Sustainable Design Relationship Specialty Start Date End Date Areli Gurrola MD [address] [place] [address] PCP - General Specialist 08/12/19 documented as of this encounter
--- OUTSIDE RECORDS SUMMARY | 2025-01-13 21:59 | XMS_ITS | Encounter Summary ---
Author Organization [facility] Address [address] [place] [address] Care Team Providers Care Industrial Therapist Name Role Phone Areli Gurrola MD Primary Care Provider Encounter Details Date Type Department Care Team (Latest Contact Info) Description 09/08/1999 Outpatient Historical [facility] [address] [place] [address] Trell York MD [address] [place] [phone] Lumbago (Primary Dx); Obesity, unspecified Social History Tobacco Use Types Packs/Day Years Used Date Smoking Tobacco: Never Assessed Comments Unknown Sex and Gender Information Value Date Recorded Sex Assigned at Not on file Legal Sex Female 3:40 AM CLOTH DYER Gender Identity Not on file Sexual Orientation [...] as of this encounter Care Teams Industrial Therapist Relationship Specialty Start Date End Date Areli Gurrola MD [address] [facility] [place] [address] PCP - General Specialist 08/12/19 documented as of this encounter
--- OUTSIDE RECORDS SUMMARY | 2025-01-13 21:59 | XMS_ITS | Encounter Summary ---
Author Organization [facility] Address [address] [place]: [place] [address] Care Team Providers Care Journeyman Apprentice Electricians Name Role Phone Areli Gurrola MD Primary Care Provider Encounter Details Date Type Department Care Team (Late st Contact Info) Description 06/06/2001 Outpatient Historical [place], Trell Pascual MD [address] [place] [phone] Social History Tobacco Use Types Packs/Day Years Used Date Smoking Tobacco: Never Assessed Comments Unknown Sex and Gender Information Value Date Recorded Sex Assigned at Not on file Legal Sex Female 3:40 AM UNDERWATER ROBOTICIST Gender Identity Not on file Sexual Orientation Not on file documented as of this encounter Plan of Treatment Not on file documented as of this encounter Visit Diagnoses Not on filedocumented in this encounter Additional Health Concerns Infection Onset Date Last Indicated Resolved Time R/O COVID-19 01/31/2020 01/31/2020 02/02/2020 10:3 2 AM CDT documented as of this encounter Care Teams Journeyman Apprentice Electricians Relationship Specialty Start Date End Date Areli Gurrola MD [address] [place] [phone] PCP - General Specialist 08/12/19 documented as of this encounter
--- OUTSIDE RECORDS SUMMARY | 2025-01-13 21:59 | XMS_ITS | Encounter Summary ---
Author Organization [facility] Address [address] [place] [address] Care Team Providers Care Military Nurse Name Role Phone Areli Gurrola MD Primary Care Provider Encounter Details Date Type Department Care Team (Latest Contact Info) Description 02/21/2000 Outpatient Historical [facility] [address] [place] [address] Trell York MD [address] [place] [phone] Stricture of cervix (Primary Dx); Lumbago Social History Tobacco Use Types Packs/Day Years Used Date Smoking Tobacco: Never Assessed Comments Unknown Sex and Gender Information Value Date Recorded Sex Assigned at Not on file Legal Sex Female 3:40 AM ELECTROPHYSIOLOGY TECHNICIAN Gender Identity Not on file Sexual [...] documented as of this encounter Care Teams Military Nurse Relationship Specialty Start Date End Date Areli Gurrola MD [address] [place] [address] PCP - General Specialist 08/12/19 documented as of this encounter
--- OUTSIDE RECORDS SUMMARY | 2025-01-13 21:59 | XMS_ITS | Encounter Summary ---
Author Organization [facility] Address [address] [place] [address] Care Team Providers Care Logistics Analyst Name Role Phone Areli Gurrola MD Primary Care Provider Encounter Details Date Type Department Care Team (Latest Contact Info) Description 10/08/2000 Outpatient Historical [facility] [address] [place] [address] Trell York MD [address] [place] [phone] Sprain and strain of unspecified site of knee and leg (Primary Dx) Social History Tobacco Use Types Packs/Day Years Used Date Smoking Tobacco: Never Assessed Comments Unknown Sex and Gender Information Value Date Recorded Sex Assigned at Not on file Legal Sex Female 3:40 AM PARQUET FLOOR LAYER Gender Identity Not on file Sexual [...] documented as of this encounter Care Teams Logistics Analyst Relationship Specialty Start Date End Date Areli Gurrola MD [address] [facility] [place] [place] [address] PCP - General Specialist 08/12/19 documented as of this encounter
--- OUTSIDE RECORDS SUMMARY | 2025-01-13 21:59 | XMS_ITS | Clinical Summary ---
Author Organization [facility] Address [address] [place] [address] Care Team Providers Care Pre Press Operator Name Role Phone Areli Gurrola [...] file Legal Sex Female 3:40 AM MANAGER PHARMACY Gender Identity Not on file Sexual Orientation [...] or Tdap) 03/15/2030 03/15/2020, 11/07/1997, 03/03/1997 Insurance [facility] DUAL [place] [address] MEDICAID [place] Advance Directives For more information, please contact: [phone] * Full Code (Latest Code Status on File) Date Activated Date Inactivated Comments 02/17/2016 12:44 PM 02/17/2016 4:46 PM Care Teams Pre Press Operator Relationship Specialty Start Date End Date Areli Gurrola MD [address] [place] [phone] PCP - General Specialist 08/12/19
--- OUTSIDE RECORDS SUMMARY | 2025-01-13 21:59 | XMS_ITS | Encounter Summary ---
Author Organization [facility] Address [address] [place] [address] Care Team Providers Care Casino Beverage Server Name Role Phone Areli Gurrola MD Primary Care Provider Encounter Details Date Type Department Care Team (Late st Contact Info) Description 03/28/1999 Outpatient Historical [facility] Social History Tobacco Use Types Packs/Day Years Used Date Smoking Tobacco: Never Assessed Comments Unknown Sex and Gender Information Value Date Recorded Sex Assigned at Not on file Legal Sex Female 3:40 AM QUALITY LEAD Gender Identity Not on file Sexual Orientation Not on file documented as of this encounter Plan of Treatment Not on file documented as of this encounter Visit Diagnoses Not on filedocumented in this encounter Additional Health Concerns Infection Onset Date Last Indicated Resolved Time R/O COVID-19 01/31/2020 01/31/2020 02/02/2020 10:3 2 AM CDT documented as of this encounter Care Teams Casino Beverage Server Relationship Specialty Start Date End Date Areli Gurrola MD [address] [place] [address] PCP - General Specialist 08/12/19 documented as of this encounter
--- OUTSIDE RECORDS SUMMARY | 2025-01-13 21:59 | XMS_ITS | Encounter Summary ---
Author Organization [facility] Address [address] [place] [address] Care Team Providers Care Phlebotomist Supervisor/Instructor Name Role Phone Areli Gurrola MD Primary Care Provider Encounter Details Date Type Department Care Team (Latest Contact Info) Description 06/20/1999 Outpatient Historical [facility] Joseph Ramos MD [address] [place] [address] Pain in joint, hand (Primary Dx) Social History Tobacco Use Types Packs/Day Years Used Date Smoking Tobacco: Never Assessed Comments Unknown Sex and Gender Information Value Date Recorded Sex Assigned at Not on file Legal Sex Female 3:40 AM BARREL LATHE OPERATOR Gender Identity Not on file Sexual [...] documented as of this encounter Care Teams Phlebotomist Supervisor/Instructor Relationship Specialty Start Date End Date Areli Gurrola MD [address] [facility] [address] PCP - General Specialist 08/12/19 documented as of this encounter
--- OUTSIDE RECORDS SUMMARY | 2025-01-13 21:59 | XMS_ITS | Encounter Summary ---
Author Organization [facility] Address [address] Attn: [place] [address] Care Team Providers Care Design Tech Name Role Phone Areli Gurrola MD Primary [...] on file Legal Sex Female 3:40 AM PROCESSING ASSISTANT Gender Identity Not on file Sexual Orientation Not on file documented as of this encounter Plan of Treatment Not on file documented as of this encounter Visit Diagnoses Not on filedocumented in this encounter Additional Health Concerns Infection Onset Date Last Indicated Resolved Time R/O COVID-19 01/31/2020 01/31/2020 02/02/2020 10:3 2 AM CDT documented as of this encounter Care Teams Design Tech Relationship Specialty Start Date End Date Areli Gurrola MD [address] [place] [address] PCP - General Specialist 08/12/19 documented as of this encounter
--- OUTSIDE RECORDS SUMMARY | 2025-01-13 21:59 | XMS_ITS | Encounter Summary ---
Author Organization [facility] Address [address] [place] [address] Care Team Providers Care Tool Builder Name Role Phone Areli Gurrola MD Primary Care Provider Encounter Details Date Type Department Care Team (Latest Contact Info) Description 01/07/2001 Outpatient Historical [facility] [address] [place] [address] Trell York MD [address] [place] [phone] Unspecified disorder of female genital organs (Primary Dx); Cervicalgia; Lumbago Social History Tobacco Use Types Packs/Day Years Used Date Smoking Tobacco: Never Assessed Comments Unknown Sex and Gender Information Value Date Recorded Sex Assigned at Not on file Legal Sex Female 3:40 AM KITCHEN RUNNER Gender Identity Not on file Sexual Orientation [...] documented as of this encounter Care Teams Tool Builder Relationship Specialty Start Date End Date Areli Gurrola MD [address] [place] [address] PCP - General Specialist 08/12/19 documented as of this encounter
--- OUTSIDE RECORDS SUMMARY | 2025-01-13 21:59 | XMS_ITS | Encounter Summary ---
Author Organization [facility] Address [address] [place] [address] Care Team Providers Care Strategic Buyer Name Role Phone Areli Gurrola MD Primary Care Provider Encounter Details Date Type Department Care Team (Late st Contact Info) Description 05/23/1999 Outpatient Historical [facility] [address] [place] [address] Trell Hines MD [address] [place] [address] Carpal tunnel syndrome (Primary Dx) Social History Tobacco Use Types Packs/Day Years Used Date Smoking Tobacco: Never Assessed Comments Unknown Sex and Gender Information Value Date Recorded Sex Assigned at Not on file Legal Sex Female 3:40 AM SERGEANT MISSILE CREWMAN Gender Identity Not on file Sexual Orientation Not on file documented as of this encounter Plan of Treatment Not on file documented as of this encounter Visit Diagnoses Diagnosis Carpal tunnel syndrome- Primary documented in this encounter Additional Health Concerns Infection Onset Date Last Indicated Resolved Time R/O COVID-19 01/31/2020 01/31/2020 02/02/2020 10:3 2 AM CDT documented as of this encounter Care Teams Strategic Buyer Relationship Specialty Start Date End Date Areli Gurrola MD [address] [place] [address] PCP - General Specialist 08/12/19 documented as of this encounter
--- OUTSIDE RECORDS SUMMARY | 2025-01-13 21:59 | XMS_ITS | Encounter Summary ---
Author Organization [facility] Address [address] [place] [address] Care Team Providers Care Oracle Hrms Developer Name Role Phone Areli Gurrola MD Primary Care Provider Encounter Details Date Type Department Care Team (Latest Contact Info) Description 05/24/1999 Outpatient Historical [facility] [address] [place] [address] Trell York MD [address] [place] [phone] Edema (Primary Dx); Lumbago Social History Tobacco Use Types Packs/Day Years Used Date Smoking Tobacco: Never Assessed Comments Unknown Sex and Gender Information Value Date Recorded Sex Assigned at Not on file Legal Sex Female 3:40 AM CARBON CAPTURE POWER PLANT OPERATOR Gender Identity Not on file [...] as of this encounter Care Teams Oracle Hrms Developer Relationship Specialty Start Date End Date Areli Gurrola MD [address] [facility] [place] [address] PCP - General Specialist 08/12/19 documented as of this encounter
--- OUTSIDE RECORDS SUMMARY | 2025-01-13 21:59 | XMS_ITS | Encounter Summary ---
Author Organization [facility] Address [address] [place] [address] Care Team Providers Care Fund Accountant Name Role Phone Areli Gurrola MD Primary Care Provider Encounter Details Date Type Department Care Team (Latest Contact Info) Description 12/27/1999 Outpatient Historical [facility] [address] [place] [address] Trell York MD [address] [place] [phone] Migraine without aura, without mention of intractable migraine without mention of status migrainosus (Primary Dx); Lumbago Social History Tobacco Use Types Packs/Day Years Used Date Smoking Tobacco: Never Assessed Comments Unknown Sex and Gender Information Value Date Recorded Sex Assigned at Not on file Legal Sex Female 3:40 AM CONTROL EQUIPMENT ELECTRICIAN Gender Identity Not on file Sexual Orientation [...] documented as of this encounter Care Teams Fund Accountant Relationship Specialty Start Date End Date Areli Gurrola MD [address] [facility] [place] [address] PCP - General Specialist 08/12/19 documented as of this encounter
--- OUTSIDE RECORDS SUMMARY | 2025-01-13 21:59 | XMS_ITS | Encounter Summary ---
Author Organization [facility] Address [address] Attn: [place] [address] Care Team Providers Care Funeral Pre Arrangement Counselor Name Role Phone Areli Gurrola MD Primary Care Provider Encounter Details Date Type Department Care Team (Late st Contact Info) Description 11/10/1999 Outpatient Historical Joseph Ramos MD [address] [place] [address] Social History Tobacco Use Types Packs/Day Years Used Date Smoking Tobacco: Never Assessed Comments Unknown Sex and Gender Information Value Date Recorded Sex Assigned at Not on file Legal Sex Female 3:40 AM HACK SAW OPERATOR Gender Identity Not on file Sexual Orientation Not on file documented as of this encounter Plan of Treatment Not on file documented as of this encounter Visit Diagnoses Not on filedocumented in this encounter Additional Health Concerns Infection Onset Date Last Indicated Resolved Time R/O COVID-19 01/31/2020 01/31/2020 02/02/2020 10:3 2 AM CDT documented as of this encounter Care Teams Funeral Pre Arrangement Counselor Relationship Specialty Start Date End Date Areli Gurrola MD [address] [facility] [place] [address] PCP - General Specialist 08/12/19 documented as of this encounter
--- OUTSIDE RECORDS SUMMARY | 2025-01-13 21:59 | XMS_ITS | Encounter Summary ---
Author Organization [facility] Address [address] [place] [address] Care Team Providers Care Coil Cutter Name Role Phone Areli Gurrola MD Primary Care Provider Encounter Details Date Type Department Care Team (Latest Contact Info) Description 08/18/1999 Outpatient Historical [facility] Joseph Ramos MD [address] [place] [address] Pain in joint, hand (Primary Dx) Social History Tobacco Use Types Packs/Day Years Used Date Smoking Tobacco: Never Assessed Comments Unknown Sex and Gender Information Value Date Recorded Sex Assigned at Not on file Legal Sex Female 3:40 AM INSURANCE CLAIM AUDITOR Gender Identity Not on file Sexual [...] documented as of this encounter Care Teams Coil Cutter Relationship Specialty Start Date End Date Areli Gurrola MD [address] [facility] [place] [address] PCP - General Specialist 08/12/19 documented as of this encounter
--- OUTSIDE RECORDS SUMMARY | 2025-01-13 21:59 | XMS_ITS | Encounter Summary ---
Author Organization [facility] Address [address] [place] [address] Care Team Providers Care Battery Inspector Name Role Phone Areli Gurrola MD Primary Care Provider Encounter Details Date Type Department Care Team (Latest Contact Info) Description 10/27/1999 Outpatient Historical [facility] [address] [place] [address] Trell York MD [address] [place] [phone] Lumbago (Primary Dx) Social History Tobacco Use Types Packs/Day Years Used Date Smoking Tobacco: Never Assessed Comments Unknown Sex and Gender Information Value Date Recorded Sex Assigned at Not on file Legal Sex Female 3:40 AM GLAZIER SUPERVISOR Gender Identity Not on file Sexual Orientation Not on file documented as of this encounter Plan of Treatment Not on file documented as of this encounter Visit Diagnoses Diagnosis Lumbago- Primary documented in this encounter Additional Health Concerns Infection Onset Date Last Indicated Resolved Time R/O COVID-19 01/31/2020 01/31/2020 02/02/2020 10:3 2 AM CDT documented as of this encounter Care Teams Battery Inspector Relationship Specialty Start Date End Date Areli Gurrola MD [address] [facility] [place] [address] PCP - General Specialist 08/12/19 documented as of this encounter
--- OUTSIDE RECORDS SUMMARY | 2025-01-13 21:59 | XMS_ITS | Encounter Summary ---
Author Organization [facility] Address [address] Attn: [place] [address] Care Team Providers Care Ski Maker Name Role Phone Areli Gurrola MD Primary Care Provider Encounter Details Date Type Department Care Team (Late st Contact Info) Description 06/11/2001 Inpatient Historical Renan Martinez MD [address] [place] [address] Social History Tobacco Use Types Packs/Day Years Used Date Smoking Tobacco: Never Assessed Comments Unknown Sex and Gender Information Value Date Recorded Sex Assigned at Not on file Legal Sex Female 3:40 AM CDL DRIVER Gender Identity Not on file Sexual Orientation Not on file documented as of this encounter Plan of Treatment Not on file documented as of this encounter Visit Diagnoses Not on filedocumented in this encounter Additional Health Concerns Infection Onset Date Last Indicated Resolved Time R/O COVID-19 01/31/2020 01/31/2020 02/02/2020 10:3 2 AM CDT documented as of this encounter Care Teams Ski Maker Relationship Specialty Start Date End Date Areli Gurrola MD [address] [facility] [place] [address] PCP - General Specialist 08/12/19 documented as of this encounter
--- OUTSIDE RECORDS SUMMARY | 2025-01-13 21:59 | XMS_ITS | Encounter Summary ---
Author Organization [facility] Address [address] Attn: [place] [address] Care Team Providers Care Cleaning Specialist Name Role Phone Areli Gurrola MD Primary Care Provider Encounter Details Date Type Department Care Team (Late st Contact Info) Description 08/19/1999 Outpatient Historical Joseph Ramos MD [address] [place] [address] Social History Tobacco Use Types Packs/Day Years Used Date Smoking Tobacco: Never Assessed Comments Unknown Sex and Gender Information Value Date Recorded Sex Assigned at Not on file Legal Sex Female 3:40 AM JACQUARD LOOM CARPET WEAVER Gender Identity Not on file Sexual Orientation Not on file documented as of this encounter Plan of Treatment Not on file documented as of this encounter Visit Diagnoses Not on filedocumented in this encounter Additional Health Concerns Infection Onset Date Last Indicated Resolved Time R/O COVID-19 01/31/2020 01/31/2020 02/02/2020 10:3 2 AM CDT documented as of this encounter Care Teams Cleaning Specialist Relationship Specialty Start Date End Date Areli Gurrola MD [address] [facility] [place] [address] PCP - General Specialist 08/12/19 documented as of this encounter
--- OUTSIDE RECORDS SUMMARY | 2025-01-13 21:59 | XMS_ITS | Encounter Summary ---
Author Organization [facility] Address [address] [facility] Attn: [place] [address] Care Team Providers Care Fruit And Vegetable Inspector Name Role Phone Areli Gurrola MD [...] file Legal Sex Female 3:40 AM LIFE MANAGEMENT TEACHER Gender Identity Not on file Sexual Orientation Not on file documented as of this encounter Plan of Treatment Not on file documented as of this encounter Visit Diagnoses Not on filedocumented in this encounter Additional Health Concerns Infection Onset Date Last Indicated Resolved Time R/O COVID-19 01/31/2020 01/31/2020 02/02/2020 10:3 2 AM CDT documented as of this encounter Care Teams Fruit And Vegetable Inspector Relationship Specialty Start Date End Date Areli Gurrola MD [address] [facility] [place] [address] PCP - General Specialist 08/12/19 documented as of this encounter
--- OUTSIDE RECORDS SUMMARY | 2025-01-13 21:59 | XMS_ITS | Encounter Summary ---
Author Organization [facility] Address [address] [place] [address] Care Team Providers Care Biomedical Equipment Specialist Name Role Phone Areli Gurrola MD Primary Care Provider Encounter Details Date Type Department Care Team (Latest Contact Info) Description 09/29/1999 Outpatient Historical [facility] [address] [place] [address] Trell York MD [address] [place] [phone] Obesity, unspecified (Primary Dx); Lumbago Social History Tobacco Use Types Packs/Day Years Used Date Smoking Tobacco: Never Assessed Comments Unknown Sex and Gender Information Value Date Recorded Sex Assigned at Not on file Legal Sex Female 3:40 AM INDUSTRIAL ORGANIZATIONAL PSYCHOLOGIST Gender Identity Not on file Sexual Orientation Not on file documented as of this encounter Plan of Treatment Not on file documented as of this encounter Visit Diagnoses Diagnosis Obesity, unspecified- Primary Lumbago documented in this encounter Additional Health Concerns Infection Onset Date Last Indicated Resolved Time R/O COVID-19 01/31/2020 01/31/2020 02/02/2020 10:3 2 AM CDT documented as of this encounter Care Teams Biomedical Equipment Specialist Relationship Specialty Start Date End Date Areli Gurrola MD [address] [facility] [place] [address] PCP - General Specialist 08/12/19 documented as of this encounter
--- OUTSIDE RECORDS SUMMARY | 2025-01-13 22:00 | XMS_ITS | Encounter Summary ---
Author Organization [facility] Address [address] [place] [address] Care Team Providers Care Boring Machine Operator Helper Name Role Phone Areli Gurrola MD Primary Care Provider Encounter Details Date Type Department Care Team (Latest Contact Info) Description 03/06/2005 Outpatient Historical [facility] [address] [place] [address] Trell York MD [address] [place] [phone] DENTAL DISORDER NOS (Primary Dx); CERVICALGIA; LUMBAGO; DYSTHYMIC DISORDER Social History Tobacco Use Types Packs/Day Years Used Date Smoking Tobacco: Never Assessed Comments Unknown Sex and Gender Information Value Date Recorded Sex Assigned at Not on file Legal Sex Female 3:40 AM THREADING MACHINE SETTER Gender Identity Not on file Sexual [...] documented as of this encounter Care Teams Boring Machine Operator Helper Relationship Specialty Start Date End Date Areli Gurrola MD [address] [facility] [place] [address] PCP - General Specialist 08/12/19 documented as of this encounter
--- OUTSIDE RECORDS SUMMARY | 2025-01-13 22:00 | XMS_ITS | Encounter Summary ---
Author Organization [facility] Address [address] [place] [address] Care Team Providers Care Sales Negotiator Name Role Phone Areli Gurrola MD Primary Care Provider Encounter Details Date Type Department Care Team (Latest Contact Info) Description 10/11/2005 Outpatient Historical [facility] [address] [place] [address] Trell York MD [address] [place] [phone] Dysthymic Disorder (Primary Dx); Lumbago Social History Tobacco Use Types Packs/Day Years Used Date Smoking Tobacco: Never Assessed Comments Unknown Sex and Gender Information Value Date Recorded Sex Assigned at Not on file Legal Sex Female 3:40 AM DIRECTOR OF SALES SUPPORT Gender Identity Not on file Sexual Orientation [...] as of this encounter Care Teams Sales Negotiator Relationship Specialty Start Date End Date Areli Gurrola MD [address] [facility] [place] [address] PCP - General Specialist 08/12/19 documented as of this encounter
--- OUTSIDE RECORDS SUMMARY | 2025-01-13 22:00 | XMS_ITS | Encounter Summary ---
Author Organization [facility] Address [address] [place] [address] Care Team Providers Care Netezza Developer Name Role Phone Areli Gurrola MD Primary Care Provider Encounter Details Date Type Department Care Team (Latest Contact Info) Description 04/11/2006 Outpatient Historical [facility] [address] [place] [address] Trell York MD [address] [place] [phone] Unspecified Essential Hypertension (Primary Dx); Dysthymic Disorder; [...] documented as of this encounter Care Teams Netezza Developer Relationship Specialty Start Date End Date Areli Gurrola MD [address] [facility] [place] [address] PCP - General Specialist 08/12/19 documented as of this encounter
--- OUTSIDE RECORDS SUMMARY | 2025-01-13 22:00 | XMS_ITS | Encounter Summary ---
Author Organization [facility] Address [address] [place] [address] Care Team Providers Care Portal Administrator Name Role Phone Areli Gurrola MD Primary Care Provider Encounter Details Date Type Department Care Team (Late st Contact Info) Description 10/27/2002 Emergency [facility] Emergency Department [address] [place] [address] Cira Archibald MD NO ADDRESS ON FILE FEMALE GENITAL SYMPTOMS NOS (Primary Dx) Social History Tobacco Use Types Packs/Day Years Used Date Smoking Tobacco: Never Assessed Comments Unknown Sex and Gender Information Value Date Recorded Sex Assigned at Not on file Legal Sex Female 3:40 AM MANAGER OF QUALITY Gender Identity Not on file Sexual Orientation [...] documented as of this encounter Care Teams Portal Administrator Relationship Specialty Start Date End Date Areli Gurrola MD [address] [place] [address] PCP - General Specialist 08/12/19 documented as of this encounter
--- OUTSIDE RECORDS SUMMARY | 2025-01-13 22:00 | XMS_ITS | Encounter Summary ---
Author Organization [facility] Address [address] [place] [address] Care Team Providers Care Dispatcher Radio Name Role Phone Areli Gurrola MD Primary Care Provider Encounter Details Date Type Department Care Team (Late st Contact Info) Description 04/07/1999 Outpatient Historical [facility] Social History Tobacco Use Types Packs/Day Years Used Date Smoking Tobacco: Never Assessed Comments Unknown Sex and Gender Information Value Date Recorded Sex Assigned at Not on file Legal Sex Female 3:40 AM AQUATIC PERFORMER Gender Identity Not on file Sexual Orientation Not on file documented as of this encounter Plan of Treatment Not on file documented as of this encounter Visit Diagnoses Not on filedocumented in this encounter Additional Health Concerns Infection Onset Date Last Indicated Resolved Time R/O COVID-19 01/31/2020 01/31/2020 02/02/2020 10:3 2 AM CDT documented as of this encounter Care Teams Dispatcher Radio Relationship Specialty Start Date End Date Areli Gurrola MD [address] [place] [address] PCP - General Specialist 08/12/19 documented as of this encounter
--- OUTSIDE RECORDS SUMMARY | 2025-01-13 22:00 | XMS_ITS | Encounter Summary ---
Author Organization [facility] Address [address] [place] [address] Care Team Providers Care Folded Cloth Taper Name Role Phone Areli Gurrola MD Primary Care Provider Encounter Details Date Type Department Care Team (Latest Contact Info) Description 03/14/1999 Outpatient [facility] [address] [place] [address] Ti Rondon MD [address] [place] [address] Abdominal pain, unspecified site (Primary Dx); Fever and other physiologic disturbances of temperature regulation; Backache, unspecified Social History Tobacco Use Types Packs/Day Years Used Date Smoking Tobacco: Never Assessed Comments Unknown Sex and Gender Information Value Date Recorded Sex Assigned at Not on file Legal Sex Female 3:40 AM COAGULATING OPERATOR Gender Identity Not on file Sexual [...] as of this encounter Care Teams Folded Cloth Taper Relationship Specialty Start Date End Date Areli Gurrola MD [address] [place] [address] PCP - General Specialist 08/12/19 documented as of this encounter
--- OUTSIDE RECORDS SUMMARY | 2025-01-13 22:00 | XMS_ITS | Encounter Summary ---
Author Organization [facility] Address [address] [place] [address] Care Team Providers Care Map Colorer Name Role Phone Areli Gurrola MD Primary Care Provider Encounter Details Date Type Department Care Team (Late st Contact Info) Description 03/11/1999 Outpatient Historical [facility] Social History Tobacco Use Types Packs/Day Years Used Date Smoking Tobacco: Never Assessed Comments Unknown Sex and Gender Information Value Date Recorded Sex Assigned at Not on file Legal Sex Female 3:40 AM PERSONAL FINANCIAL REPRESENTATIVE Gender Identity Not on file Sexual Orientation Not on file documented as of this encounter Plan of Treatment Not on file documented as of this encounter Visit Diagnoses Not on filedocumented in this encounter Additional Health Concerns Infection Onset Date Last Indicated Resolved Time R/O COVID-19 01/31/2020 01/31/2020 02/02/2020 10:3 2 AM CDT documented as of this encounter Care Teams Map Colorer Relationship Specialty Start Date End Date Areli Gurrola MD [address] [place] [address] PCP - General Specialist 08/12/19 documented as of this encounter
--- OUTSIDE RECORDS SUMMARY | 2025-01-13 22:00 | XMS_ITS | Encounter Summary ---
Author Organization [facility] Address [address] [place] [address] Care Team Providers Care Inspector And Clipper Name Role Phone Areli Gurrola MD Primary Care Provider Encounter Details Date Type Department Care Team (Latest Contact Info) Description 07/19/1998 Outpatient Historical [facility] Charli Perez MD NO ADDRESS ON FILE Scar condition and fibrosis of skin (Primary Dx) Social History Tobacco Use Types Packs/Day Years Used Date Smoking Tobacco: Never Assessed Comments Unknown Sex and Gender Information Value Date Recorded Sex Assigned at Not on file Legal Sex Female 3:40 AM AIRCRAFT PART ASSEMBLER Gender Identity Not on file Sexual [...] as of this encounter Care Teams Inspector And Clipper Relationship Specialty Start Date End Date Areli Gurrola MD [address] [place] [address] PCP - General Specialist 08/12/19 documented as of this encounter
--- OUTSIDE RECORDS SUMMARY | 2025-01-13 22:00 | XMS_ITS | Encounter Summary ---
Author Organization [facility] Address [address] [place] [address] Care Team Providers Care Side Trimmer Name Role Phone Areli Gurrola MD Primary Care Provider Encounter Details Date Type Department Care Team (Latest Contact Info) Description 02/20/2005 Outpatient [facility] [address] [place] [address] Trell York MD [address] [place] [phone] LUMBAGO (Primary Dx); DYSTHYMIC DISORDER; ANXIETY STATE NOS; CERVICALGIA Social History Tobacco Use Types Packs/Day Years Used Date Smoking Tobacco: Never Assessed Comments Unknown Sex and Gender Information Value Date Recorded Sex Assigned at Not on file Legal Sex Female 3:40 AM PATTERN VAULT CLERK Gender Identity Not on file Sexual [...] documented as of this encounter Care Teams Side Trimmer Relationship Specialty Start Date End Date Areli Gurrola MD [address] [place] [address] PCP - General Specialist 08/12/19 documented as of this encounter
--- OUTSIDE RECORDS SUMMARY | 2025-01-13 22:00 | XMS_ITS | Encounter Summary ---
Author Organization [facility] Address [address] [place] [address] Care Team Providers Care Campaign Advisor Name Role Phone Areli Gurrola MD Primary Care Provider Encounter Details Date Type Department Care Team (Late st Contact Info) Description 03/18/1999 Outpatient Historical HIS [facility] Social History Tobacco Use Types Packs/Day Years Used Date Smoking Tobacco: Never Assessed Comments Unknown Sex and Gender Information Value Date Recorded Sex Assigned at Not on file Legal Sex Female 3:40 AM SERVER ASSISTANT Gender Identity Not on file Sexual Orientation Not on file documented as of this encounter Plan of Treatment Not on file documented as of this encounter Visit Diagnoses Not on filedocumented in this encounter Additional Health Concerns Infection Onset Date Last Indicated Resolved Time R/O COVID-19 01/31/2020 01/31/2020 02/02/2020 10:3 2 AM CDT documented as of this encounter Care Teams Campaign Advisor Relationship Specialty Start Date End Date Areli Gurrola MD [address] [place] [address] PCP - General Specialist 08/12/19 documented as of this encounter
--- OUTSIDE RECORDS SUMMARY | 2025-01-13 22:00 | XMS_ITS | Encounter Summary ---
Author Organization [facility] Address [address] [place] [address] Care Team Providers Care Brancher Name Role Phone Areli Gurrola MD Primary Care Provider Encounter Details Date Type Department Care Team (Latest Contact Info) Description 02/14/1999 Outpatient Historical [facility] Conrad Turner [address] [place] [address] AlumnoGibran MD [address] [place] [address] Lumbago (Primary Dx) Social History Tobacco Use Types Packs/Day Years Used Date Smoking Tobacco: Never Assessed Comments Unknown Sex and Gender Information Value Date Recorded Sex Assigned at Not on file Legal Sex Female 3:40 AM YARD OPERATOR Gender Identity Not on file Sexual Orientation Not on file documented as of this encounter Plan of Treatment Not on file documented as of this encounter Visit Diagnoses Diagnosis Lumbago- Primary documented in this encounter Additional Health Concerns Infection Onset Date Last Indicated Resolved Time R/O COVID-19 01/31/2020 01/31/2020 02/02/2020 10:3 2 AM CDT documented as of this encounter Care Teams Brancher Relationship Specialty Start Date End Date Areli Gurrola MD [address] [place] [address] PCP - General Specialist 08/12/19 documented as of this encounter
--- OUTSIDE RECORDS SUMMARY | 2025-01-13 22:00 | XMS_ITS | Encounter Summary ---
Author Organization [facility] Address [address] [place] [address] Care Team Providers Care Live Games Dealer Name Role Phone Areli Gurrola MD Primary Care Provider Encounter Details Date Type Department Care Team (Late st Contact Info) Description 04/14/1999 Outpatient Historical [facility] Social History Tobacco Use Types Packs/Day Years Used Date Smoking Tobacco: Never Assessed Comments Unknown Sex and Gender Information Value Date Recorded Sex Assigned at Not on file Legal Sex Female 3:40 AM STARS COORDINATOR Gender Identity Not on file Sexual Orientation Not on file documented as of this encounter Plan of Treatment Not on file documented as of this encounter Visit Diagnoses Not on filedocumented in this encounter Additional Health Concerns Infection Onset Date Last Indicated Resolved Time R/O COVID-19 01/31/2020 01/31/2020 02/02/2020 10:3 2 AM CDT documented as of this encounter Care Teams Live Games Dealer Relationship Specialty Start Date End Date Areli Gurrola MD [address] [place] [address] PCP - General Specialist 08/12/19 documented as of this encounter
--- OUTSIDE RECORDS SUMMARY | 2025-01-13 22:00 | XMS_ITS | Encounter Summary ---
Author Organization [facility] Address [address] [place] [address] Care Team Providers Care Shoe Repairman Name Role Phone Areli Gurrola MD Primary Care Provider Encounter Details Date Type Department Care Team (Latest Contact Info) Description 07/26/1998 Outpatient Historical [facility] Charli Perez MD NO ADDRESS ON FILE Other specified aftercare following surgery (Primary Dx) Social History Tobacco Use Types Packs/Day Years Used Date Smoking Tobacco: Never Assessed Comments Unknown Sex and Gender Information Value Date Recorded Sex Assigned at Not on file Legal Sex Female 3:40 AM LEAD HOUSEKEEPER Gender Identity Not on file Sexual Orientation [...] as of this encounter Care Teams Shoe Repairman Relationship Specialty Start Date End Date Areli Gurrola MD [address] [place] [address] PCP - General Specialist 08/12/19 documented as of this encounter
--- OUTSIDE RECORDS SUMMARY | 2025-01-13 22:00 | XMS_ITS | Encounter Summary ---
Author Organization [facility] Address [address] [place] [address] Care Team Providers Care Wet Mixer Name Role Phone Areli Gurrola MD Primary Care Provider Encounter Details Date Type Department Care Team (Latest Contact Info) Description 03/09/1999 Outpatient [facility] [address] [place] [address] Alumno, Gibran yLnn MD [address] [place] [address] Sprain and strain of unspecified site of shoulder and upper arm (Primary Dx); Backache, unspecified Social History Tobacco Use Types Packs/Day Years Used Date Smoking Tobacco: Never Assessed Comments Unknown Sex and Gender Information Value Date Recorded Sex Assigned at Not on file Legal Sex Female 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
--- OUTSIDE RECORDS SUMMARY | 2025-01-13 22:00 | XMS_ITS | Encounter Summary ---
Author Organization [facility] Address [address] [place] [address] Care Team Providers Care Tree Farmer Name Role Phone Areli Gurrola MD Primary Care Provider Encounter Details Date Type Department Care Team (Latest Contact Info) Description 02/02/1999 Outpatient Historical [facility] [address] [place] [address] Alumno, Gibran Lynn MD [address] [place] [address] Sprain and strain of other specified sites of shoulder and upper arm (Primary Dx); Hx musculoskletl dis NEC Social History Tobacco Use Types Packs/Day Years Used Date Smoking Tobacco: Never Assessed Comments Unknown Sex and Gender Information Value Date Recorded Sex Assigned at Not on file Legal Sex Female 3:40 AM PROFESSIONAL 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
--- OUTSIDE RECORDS SUMMARY | 2025-01-13 22:00 | XMS_ITS | Encounter Summary ---
Author Organization [facility] Address [address] [place] [address] Care Team Providers Care Sql Developer Name Role Phone Areli Gurrola MD Primary Care Provider Encounter Details Date Type Department Care Team (Latest Contact Info) Description 04/25/2004 Outpatient [facility] [address] [place] [address] Trell York MD [address] [place] [phone] DYSTHYMIC DISORDER (Primary Dx); LUMBAGO; Pain in limb; Inflamed seborr keratos Social History Tobacco Use Types Packs/Day Years Used Date Smoking Tobacco: Never Assessed Comments Unknown Sex and Gender Information Value Date Recorded Sex Assigned at Not on file Legal Sex Female 3:40 AM CERTIFIED NURSE AIDE Gender Identity Not on file Sexual Orientation [...] documented as of this encounter Care Teams Sql Developer Relationship Specialty Start Date End Date Areli Gurrola MD [address] [facility] [place] [address] PCP - General Specialist 08/12/19 documented as of this encounter
--- OUTSIDE RECORDS SUMMARY | 2025-01-13 22:00 | XMS_ITS | Encounter Summary ---
Author Organization [facility] Address [address] [place] [address] Care Team Providers Care Cupola Tapper Helper Name Role Phone Areli Gurrola MD Primary Care Provider Encounter Details Date Type Department Care Team (Late st Contact Info) Description 03/30/1999 Outpatient Historical [facility] Social History Tobacco Use Types Packs/Day Years Used Date Smoking Tobacco: Never Assessed Comments Unknown Sex and Gender Information Value Date Recorded Sex Assigned at Not on file Legal Sex Female 3:40 AM MINE EXPERT Gender Identity Not on file Sexual Orientation Not on file documented as of this encounter Plan of Treatment Not on file documented as of this encounter Visit Diagnoses Not on filedocumented in this encounter Additional Health Concerns Infection Onset Date Last Indicated Resolved Time R/O COVID-19 01/31/2020 01/31/2020 02/02/2020 10:3 2 AM CDT documented as of this encounter Care Teams Cupola Tapper Helper Relationship Specialty Start Date End Date Areli Gurrola MD [address] [place] [address] PCP - General Specialist 08/12/19 documented as of this encounter
--- OUTSIDE RECORDS SUMMARY | 2025-01-13 22:00 | XMS_ITS | Encounter Summary ---
Author Organization [facility] Address [address] [place] [address] Care Team Providers Care Stable Helper Name Role Phone Areli Gurrola MD Primary Care Provider Encounter Details Date Type Department Care Team (Latest Contact Info) Description 07/07/2004 Outpatient Historical [facility] Services [place] [address] [place] [address] Trell York MD [address] [place] [phone] CERVICAL DISC DISPLACMNT (Primary Dx) Social History Tobacco Use Types Packs/Day Years Used Date Smoking Tobacco: Never Assessed Comments Unknown Sex and Gender Information Value Date Recorded Sex Assigned at Not on file Legal Sex Female 3:40 AM GRANITE BLOCK PAVER Gender Identity Not on file Sexual Orientation [...] documented as of this encounter Care Teams Stable Helper Relationship Specialty Start Date End Date Areli Gurrola MD [address] [facility] [place] [address] PCP - General Specialist 08/12/19 documented as of this encounter
--- OUTSIDE RECORDS SUMMARY | 2025-01-13 22:00 | XMS_ITS | Encounter Summary ---
Author Organization [facility] Address [address] [place] [address] Care Team Providers Care Sales Leader Name Role Phone Unavailable Primary Care Provider [...] on file Legal Sex Female 6:21 AM SUPERVISOR BOILERMAKING SHOP Gender Identity Not on file Sexual Orientation Not on file documented as of this encounter Plan of Treatment Not on file documented as of this encounter Visit Diagnoses Not on filedocumented in this encounter
--- OUTSIDE RECORDS SUMMARY | 2025-01-13 22:00 | XMS_ITS | Encounter Summary ---
Author Organization [facility] Address [address] [place] [address] Care Team Providers Care Cut Lace Machine Operator Name Role Phone Areli Gurrola MD Primary Care Provider Encounter Details Date Type Department Care Team (Late st Contact Info) Description 03/31/1999 Outpatient Historical [facility] Social History Tobacco Use Types Packs/Day Years Used Date Smoking Tobacco: Never Assessed Comments Unknown Sex and Gender Information Value Date Recorded Sex Assigned at Not on file Legal Sex Female 3:40 AM BAND MANAGER Gender Identity Not on file Sexual Orientation Not on file documented as of this encounter Plan of Treatment Not on file documented as of this encounter Visit Diagnoses Not on filedocumented in this encounter Additional Health Concerns Infection Onset Date Last Indicated Resolved Time R/O COVID-19 01/31/2020 01/31/2020 02/02/2020 10:3 2 AM CDT documented as of this encounter Care Teams Cut Lace Machine Operator Relationship Specialty Start Date End Date Areli Gurrola MD [address] [place] [address] PCP - General Specialist 08/12/19 documented as of this encounter
--- OUTSIDE RECORDS SUMMARY | 2025-01-13 22:00 | XMS_ITS | Patient Health Record ---
Author Organization [facility] Address [address] [place] [address] Care Team Providers Care Grain Thresher Name Role Phone Joseph Lewis MD Primary Care Provider Zane Joiner Unavailable [phone] ELROY BOOTHE Unavailable Unavailable Migration, Provider Unavailable Unavailable Reason For Referral Reason eval and treat Diagnosis 1 Radiculopathy, lumba r region (M54.16) Referring Provider First Name Aida Referring Provider Last Name Carlton Referring Provider Speciality Physician Quality Assurance Supervisor Trim Referred Organization [facility] Referred Provider Tam Fairchild Referred Address [address],[facility],[place],[address], Referred Provider Specialty Intervention al Pain Medicine [...] drug interaction check* Fluticasone Furoate 27.5mcg/1spray Nasal [place] Use 2 spray(s) in each nostril daily 05/28/2008 Active Immunizations Vaccine Route Administration Date Status Comme nts Influenza (whole), CPT 62091 Inactive Unknown 10/15/2018 Administered Social History Social [...] Severe recurrent major depression without psychotic features (67989096) Major depressive disorder, 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.2) Active confirmed Problem Severe recurrent major depression with psychotic features (48206893) Major depressive disorder, recurrent, 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) Active confirmed Problem Adjustment disorder with mixed disturbance of emotions AND conduct (71745402) Adjustment disorder with mixed disturbance of emotions and conduct (F43.25) Active confirmed Problem Borderline personality disorder (68938348) Borderline personality disorder (F60.3) Active confirmed Problem Lumbar radiculopathy (525706920) Radiculopathy, lumbar region (M54.16) Active confirmed Problem History of psychiatric disorder (857313651) Personal history of other mental and behavioral disorders (Z86.59) Active confirmed Problem Alcohol abuse (40856207) Alcohol abuse (F10.10) Active confirmed Problem Major depression, single episode (61058391) Depression, major (F32.9) Active confirmed Problem Fibromyalgia (508418130) Fibromyalgia (729.1) 05/28/19 09 Problem resolved confirmed Luke-985 911- Problem 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 confirmed Problem Low back pain (668098157) Low back pain (724.2) 05/28/19 09 Active confirmed Luke-985 911- Problem Chronic pain (70623918) Chronic pain (G89.29) Active confirmed Problem Polysubstance abuse (003372409) Polysubstance abuse (F19.10) Active confirmed Problem Cannabis abuse (14658725) Cannabis abuse (F12.10) Active confirmed Encounters Encounter Location Date Provider Diagnosis Migrated_Facility 0 0 02/02/2024 Provider Migration Migrated_Facility 0 0 02/03/2024 Provider Migration Plan Of Treatment No Information Insurance Providers Payer Name Payer Address Payer Phone Subscriber Number Group Number Insured Name Patient Relationship to Insured Coverage Start Date Coverage End Date [facility] Commercial [address] [address] [place] [address] [id number] Kay Gamboa Self - patient is the insured [place] [address] [place] [address] [id number] Kay Gamboa Self - patient is the insured Medical (General) History Surgical History Surgery Date(Month/Year) Appendectomy Biopsy of Bone Marrow Carpal tunnel surgery Gallbladder surgery Hysterectomy Laminectomy Tonsillectomy
--- OUTSIDE RECORDS SUMMARY | 2025-01-13 22:00 | XMS_ITS | Encounter Summary ---
Author Organization [facility] Address [address] [place] [address] Care Team Providers Care Sales Representative Marine Supplies Name Role Phone Areli Gurrola MD Primary Care Provider Encounter Details Date Type Department Care Team (Latest Contact Info) Description 05/20/2003 Outpatient Historical [facility] [address] [place] [address] Trell York MD [address] [place] [phone] ACUTE BRONCHITIS (Primary Dx) Social History Tobacco [...] of this encounter Care Teams Sales Representative Marine Supplies Relationship Specialty Start Date End Date Areli Gurrola MD [address] [place] [address] PCP - General Specialist 08/12/19 documented as of this encounter
--- OUTSIDE RECORDS SUMMARY | 2025-01-13 22:00 | XMS_ITS | Encounter Summary ---
Author Organization [facility] Address [address] [place] [address] Care Team Providers Care Cardiac Monitor Name Role Phone Areli Gurrola MD Primary Care Provider Encounter Details Date Type Department Care Team (Latest Contact Info) Description 06/22/2003 Outpatient Historical [facility] [address] [place] [address] Trell York MD [address] [place] [phone] CHEST PAIN NOS (Primary Dx); ABN INVOLUN MOVEMENT NEC; CERVICALGIA Social History Tobacco Use Types Packs/Day Years Used Date Smoking Tobacco: Never Assessed Comments Unknown Sex and Gender Information Value Date Recorded Sex Assigned at Not on file Legal Sex Female 3:[address] Gender Identity Not on file Sexual [...] documented as of this encounter Care Teams Cardiac Monitor Relationship Specialty Start Date End Date Areli Gurrola MD [address] [place] [address] PCP - General Specialist 08/12/19 documented as of this encounter
--- OUTSIDE RECORDS SUMMARY | 2025-01-13 22:00 | XMS_ITS | Encounter Summary ---
Author Organization [facility] Address [address] [place] [address] Care Team Providers Care Solderer Furnace Name Role Phone Areli Gurrola MD Primary Care Provider Encounter Details Date Type Department Care Team (Latest Contact Info) Description 07/05/1998 Outpatient Historical [facility] Charli Perez MD NO ADDRESS ON FILE Other specified aftercare following surgery (Primary Dx) Social History Tobacco Use Types Packs/Day Years Used Date Smoking Tobacco: Never Assessed Comments Unknown Sex and Gender Information Value Date Recorded Sex Assigned at Not on file Legal Sex Female 3:40 AM IT SECURITY SPECIALIST Gender Identity Not on file Sexual [...] documented as of this encounter Care Teams Solderer Furnace Relationship Specialty Start Date End Date Areli Gurrola MD [address] [place] [address] PCP - General Specialist 08/12/19 documented as of this encounter
--- OUTSIDE RECORDS SUMMARY | 2025-01-13 22:00 | XMS_ITS | Encounter Summary ---
Author Organization [facility] Address [address] [place] [address] Care Team Providers Care Radiology Scheduler Name Role Phone Areli Gurrola MD Primary Care Provider Encounter Details Date Type Department Care Team (Latest Contact Info) Description 09/14/2004 [facility]patient [facility] [address] [place] [address] Trell York MD [address] [place] [phone] DYSTHYMIC DISORDER (Primary Dx); CERVICALGIA; LUMBAGO Social History Tobacco Use Types Packs/Day Years Used Date Smoking Tobacco: Never Assessed Comments Unknown Sex and Gender Information Value Date Recorded Sex Assigned at Not on file Legal Sex Female 3:40 AM BACTERIOLOGY TECHNICIAN Gender Identity Not on file Sexual [...] documented as of this encounter Care Teams Radiology Scheduler Relationship Specialty Start Date End Date Areli Gurrola MD [address] [place] [address] PCP - General Specialist 08/12/19 documented as of this encounter
--- OUTSIDE RECORDS SUMMARY | 2025-01-13 22:00 | XMS_ITS | Encounter Summary ---
Author Organization [facility] Address [address] [place] [address] Care Team Providers Care Laserist Name Role Phone Areli Gurrola MD Primary Care Provider Encounter Details Date Type Department Care Team (Late st Contact Info) Description 05/14/2003 Outpatient Historical [facility] [address] [place] [address] Roman Law, DO [address] [place] [phone] ACUTE SINUSITIS NOS (Primary Dx) Social History Tobacco Use Types Packs/Day Years Used Date Smoking Tobacco: Never Assessed Comments Unknown Sex and Gender Information Value Date Recorded Sex Assigned at Not on file Legal Sex Female 3:40 AM ACTIVITIES OFFICER Gender Identity Not on file Sexual [...] documented as of this encounter Care Teams Laserist Relationship Specialty Start Date End Date Areli Gurrola MD [address] [place] [address] PCP - General Specialist 08/12/19 documented as of this encounter
--- OUTSIDE RECORDS SUMMARY | 2025-01-13 22:00 | XMS_ITS | Encounter Summary ---
Author Organization [facility] Address [address] [place] [address] Care Team Providers Care Director Food Safety Name Role Phone Areil Gurrola MD Primary Care Provider Encounter Details Date Type Department Care Team (Late st Contact Info) Description 03/25/1999 Outpatient Historical HIS [facility] Social History Tobacco Use Types Packs/Day Years Used Date Smoking Tobacco: Never Assessed Comments Unknown Sex and Gender Information Value Date Recorded Sex Assigned at Not on file Legal Sex Female 3:40 AM GENERATING PLANT SUPERINTENDENT Gender Identity Not on file Sexual Orientation Not on file documented as of this encounter Plan of Treatment Not on file documented as of this encounter Visit Diagnoses Not on filedocumented in this encounter Additional Health Concerns Infection Onset Date Last Indicated Resolved Time R/O COVID-19 01/31/2020 01/31/2020 02/02/2020 10:3 2 AM CDT documented as of this encounter Care Teams Director Food Safety Relationship Specialty Start Date End Date Areli Gurrola MD [address] [place] [address] PCP - General Specialist 08/12/19 documented as of this encounter
--- OUTSIDE RECORDS SUMMARY | 2025-01-13 22:00 | XMS_ITS | Encounter Summary ---
Author Organization [facility] Address [address] [place] [address] Care Team Providers Care Technical Implementation Lead Name Role Phone Areli Gurrola MD Primary Care Provider Encounter Details Date Type Department Care Team (Latest Contact Info) Description 09/09/2003 Outpatient Historical [facility] [address] [place] [address] Trell York MD [address] [place] [phone] CERVICALGIA (Primary Dx) Social History Tobacco Use Types Packs/Day Years Used Date Smoking Tobacco: Never Assessed Comments Unknown Sex and Gender Information Value Date Recorded Sex Assigned at Not on file Legal Sex Female 3:40 AM CHAR FILTER OPERATOR Gender Identity Not on file Sexual Orientation Not on file documented as of this encounter Plan of Treatment Not on file documented as of this encounter Visit Diagnoses Diagnosis Cervicalgia- Primary documented in this encounter Additional Health Concerns Infection Onset Date Last Indicated Resolved Time R/O COVID-19 01/31/2020 01/31/2020 02/02/2020 10:3 2 AM CDT documented as of this encounter Care Teams Technical Implementation Lead Relationship Specialty Start Date End Date Areli Gurrola MD [address] [place] [place] [address] PCP - General Specialist 08/12/19 documented as of this encounter
--- OUTSIDE RECORDS SUMMARY | 2025-01-13 22:00 | XMS_ITS | Encounter Summary ---
Author Organization [facility] Address [address] [place] [address] Care Team Providers Care Medicaid Eligibility Specialist Name Role Phone Areli Gurrola MD Primary Care Provider Encounter Details Date Type Department Care Team (Latest Contact Info) Description 06/07/1998 Outpatient Historical HIS [facility] Charli Perez MD NO ADDRESS ON FILE Open wound of forehead (Primary Dx) Social History Tobacco Use Types Packs/Day Years Used Date Smoking Tobacco: Never Assessed Comments Unknown Sex and Gender Information Value Date Recorded Sex Assigned at Not on file Legal Sex Female 3:40 AM HEAD OF ACQUISITIONS Gender Identity Not on file Sexual Orientation [...] documented as of this encounter Care Teams Medicaid Eligibility Specialist Relationship Specialty Start Date End Date Areli Gurrola MD [address] [place] [address] PCP - General Specialist 08/12/19 documented as of this encounter
--- OUTSIDE RECORDS SUMMARY | 2025-01-13 22:00 | XMS_ITS | Encounter Summary ---
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
--- OUTSIDE RECORDS SUMMARY | 2025-01-13 22:00 | XMS_ITS | Encounter Summary ---
Author Organization [facility] Address [address] [place] [address] Care Team Providers Care Industrial Nurse Name Role Phone Areli Gurrola MD Primary Care Provider Encounter Details Date Type Department Care Team (Late st Contact Info) Description 07/07/2004 Outpatient Historical [facility] [address] [place] 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
--- OUTSIDE RECORDS SUMMARY | 2025-01-13 22:00 | XMS_ITS | Clinical Summary ---
Author Organization [facility] Address [address] [place] [address] Care Team Providers Care Airline Stewardess Name Role Phone Unavailable Primary Care Provider [...] PM CDT - 12/05/2024 9:47 PM CDT [facility] Emergency Medicine [address] [facility] [address] [place] [address] Leg swelling (Primary Dx); Chronic bilateral low back pain without sciatica Discharge Disposition: Home or Self Care 11/22/2024 8:22 PM CDT - 11/22/2024 10:24 PM CDT [facility] Emergency Medicine [address] [facility] [address] [place] [address] Julian Avila MD Nausea (Primary Dx); Acute low back pain without sciatica, unspecified back pain laterality Discharge Disposition: Home or Self Care 11/22/2024 Travel 10/28/2024 External Device Data [facility] ABSTRACTION Provider, Abstract 10/28/2024 External Device Data [facility] ABSTRACTION Provider, Abstract 10/28/2024 External Device Data [facility] ABSTRACTION Provider, Abstract 10/24/2024 7:46 PM CDT - 10/24/2024 10:27 PM CDT [facility] Emergency Medicine [address] [facility] [address] [place] [address] Radha Castillo Y, DO Pain in sacrum [...] on file Legal Sex Female 6:21 AM HAUL DRIVER Gender Identity Not on file [...] Consistent w Count 12/05/2024 8:38 PM CDT [facility] RBC MORPHOLOGY Normal 12/05/2024 8:38 PM CDT [facility] Blood BLOOD SPECIMEN / Unknown Collection / Unknown 12/05/2024 8:13 PM CDT 12/05/2024 8:21 PM CDT us Julian Avila MD HEMATOLOGY ORDERABLES COM Final Result [facility] CLIA # [id number] [address] [place] [address] * (ABNORMAL) CBC WITH DIFFERENTIAL (12/05/2024 8:13 PM CDT) Only the most recent of2 resultswithin the time period is included. WBC 4.0 4.0 - 10.0 K/uL 12/05/2024 8:38 PM [facility] RBC 3.03(L) 3.93 - 5.22 M/uL 12/05/2024 8:38 PM [facility] HEMOGLOBIN 8.4(L) 11.2 - 15.7 g/dL 12/05/2024 8:38 PM [facility] HEMATOCRIT 25.2(L) 34.1 - 44.9 % 12/05/2024 8:38 PM [facility] MCV 83.2 79.4 - 94.8 fL 12/05/2024 8:38 PM [facility] MCH 27.7 25.6 - 32.2 pg 12/05/2024 8:38 PM [facility] MCHC 33.3 32.2 - 35.5 g/dL 12/05/2024 8:38 PM [facility] RDW 16.5(H) 11.0 - 14.5 % 12/05/2024 8:38 PM [facility] RDW-STDEV 49.7 36.9 - 56.9 fL 12/05/2024 8:38 PM [facility] PLATELETS 97(L) 163 - 337 K/uL 12/05/2024 8:38 PM [facility] MPV 10.2 10.0 - 14.8 fL 12/05/2024 8:38 PM [facility] NEUTROPHILS 68 34 - 71 % 12/05/2024 8:38 PM [facility] LYMPHOCYTES 21 19 - 52 % 12/05/2024 8:38 PM [facility] MONOCYTES 8 5 - 13 % 12/05/2024 8:38 PM [facility] EOSINOPHILS 2 1 - 6 % 12/05/2024 8:38 PM CDT [facility] BASOPHILS 1 0 - 1 % 12/05/2024 8:38 PM CDT [facility] IMMATURE GRANULOCYTES 1 % 12/05/2024 8:38 PM CDT [facility] NEUTROPHIL ABSOLUTE 2.72 1.56 - 6.13 K/uL 12/05/2024 8:38 PM T [facility] LYMPHOCYTE ABSOLUTE 0.83(L) 1.20 - 3.40 K/uL 12/05/2024 8:38 PM CDT [facility] MONOCYTE ABSOLUTE 0.30 0.24 - 0.36 K/uL 12/05/2024 8:38 PM [facility] EOSINOPHIL ABSOLUTE 0.07 0.04 - 0.36 K/uL 12/05/2024 8:38 PM CDT [facility] BASOPHILS ABSOLUTE 0.03 0.01 - 0.08 K/uL 12/05/2024 8:38 PM [facility] IMMATURE GRANULOCYTES ABSOLUTE 0.02 K/uL 12/05/2024 8:38 PM [facility] Blood BLOOD SPECIMEN / Unknown Collection / Unknown 12/05/2024 8:13 PM CDT 12/05/2024 8:21 PM CDT us Julian Avila MD HEMATOLOGY ORDERABLES Final Result [id number] [address] [place] [id number] * (ABNORMAL) COMPREHENSIVE METABOLIC PANEL (12/05/2024 8:13 PM CDT) Only the most recent of2 resultswithin the time period is included. SODIUM 140 136 - 145 mmol/L 12/05/2024 8:56 PM CDT [facility] POTASSIUM 3.4(L) 3.5 - 5.1 mmol/L 12/05/2024 8:56 PM [facility] CHLORIDE 106 98 - 107 mmol/L 12/05/2024 8:56 PM [facility] CO2 24 22 - 29 mmol/L 12/05/2024 8:56 PM [facility] CALCIUM 8.2(L) 8.6 - 10.0 mg/dL 12/05/2024 8:56 PM [facility] BUN 5(L) 6 - 20 mg/dL 12/05/2024 8:56 PM [facility] CREATININE 0.62 0.51 - 0.95 mg/dL 12/05/2024 8:56 PM [facility] GLUCOSE 98 74 - 99 mg/dL 12/05/2024 8:56 PM [facility] TOTAL PROTEIN 5.2(L) 6.6 - 8.7 g/dL 12/05/2024 8:56 PM [facility] ALBUMIN 2.9(L) 3.5 - 5.2 g/dL 12/05/2024 8:56 PM [facility] BILIRUBIN TOTAL 2.4(H) 0.0 - 1.2 mg/dL 12/05/2024 8:56 PM [facility] ALKALINE PHOSPHATASE 135(H) 35 - 104 U/L 12/05/2024 8:56 PM [facility] AST 72(H) 0 - 35 U/L 12/05/2024 8:56 PM [facility] Comment:Hemolysis present. R esult may be falsely elevated. ALT 34 0 - 35 U/L 12/05/2024 8:56 PM [facility] GFR >60 >=60 mL/min/1.7 3 sq meter 12/05/2024 8:56 PM [facility] Comment:eGFR calculated with 2020 CKD-EPI equation. Vegetarian diet, extremely high or low muscle mass, and may affect results. Cystatin C with Glomerular Filtration Rate is a suitable alternative for these patients. ANION GAP 10 5 - 20 mmol/L 12/05/2024 8:56 PM [facility] Blood BLOOD SPECIMEN / Unknown Collection / Unknown 12/05/2024 8:13 PM CDT 12/05/2024 8:21 PM CDT Julian Avila MD CHEMISTRY ORDERABLES Final Result Performing Organization Address City/[facility]/ZIP Co de Phone Number [facility] CLIA # [id number] [address] [place] [phone] * (ABNORMAL) LIPASE (11/22/2024 8:33 PM CDT) LIPASE 72(H) 13 - 60 U/L 11/22/2024 8:57 PM CDT [facility] Blood BLOOD SPECIMEN / Unknown Collection / Unknown 11/22/2024 8:33 PM CDT 11/22/2024 8:39 PM CDT Julian Avila MD CHEMISTRY ORDERABLES Final Result Performing Organization Address [facility] Co de Phone Number [facility] CLIA # [id number] [address] [place] [address] * EKG 12 lead (11/22/2024 8:14 PM [...] to Health Maintenance Insurance [place] [employer] [facility]
--- OUTSIDE RECORDS SUMMARY | 2025-01-13 22:00 | XMS_ITS | Encounter Summary ---
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
--- OUTSIDE RECORDS SUMMARY | 2025-01-13 22:00 | XMS_ITS | Encounter Summary ---
Author Organization [facility] Address [address] [place] [address] Care Team Providers Care Foundry Helper Name Role Phone Areli Gurrola MD Primary Care Provider Encounter Details Date Type Department Care Team (Latest Contact Info) Description 06/26/2003 Outpatient Historical [facility] Cardiology [facility] [address] [place] [address] Jim Matos MD [address] [address] [place] [address] PRECORDIAL PAIN (Primary Dx) Social History Tobacco Use Types Packs/Day Years Used Date Smoking Tobacco: Never Assessed Comments Unknown Sex and Gender Information Value Date Recorded Sex Assigned at Not on file 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 Gender Identity Not on file Sexual Orientation Not on file documented as of this encounter Plan of Treatment Not on file documented as of this encounter Visit Diagnoses Diagnosis Precordial pain- Primary documented in this encounter Additional Health Concerns Infection Onset Date Last Indicated Resolved Time R/O COVID-19 01/31/2020 01/31/2020 02/02/2020 10:3 2 AM CDT documented as of this encounter Care Teams Foundry Helper Relationship Specialty Start Date End Date Areli Gurrola MD [address] [facility] [place] [address] PCP - General Specialist 08/12/19 documented as of this encounter
--- OUTSIDE RECORDS SUMMARY | 2025-01-13 22:00 | XMS_ITS | Encounter Summary ---
Author Organization [facility] Address [address] [place] [address] Care Team Providers Care Efficiency Miner Name Role Phone Areli Gurrola MD Primary Care Provider Encounter Details Date Type Department Care Team (Latest Contact Info) Description 03/23/1999 Outpatient [facility] L[address] [place] [address] Alumno, Gibran Lynn MD [address] [place] [address] Unspecified viral infection, in conditions [...] Legal Sex Female 3:40 AM DIRECTOR OF INSTRUCTION Gender Identity Not on file Sexual Orientation [...] documented as of this encounter Care Teams Efficiency Miner Relationship Specialty Start Date End Date Areli Gurrola MD [address] [place] [address] PCP - General Specialist 08/12/19 documented as of this encounter
--- OUTSIDE RECORDS SUMMARY | 2025-01-13 22:00 | XMS_ITS | Encounter Summary ---
Author Organization [facility] Address [address] [place] [address] Care Team Providers Care Semiconductor Wafers Etcher Stripper Name Role Phone Areli Gurrola MD Primary Care Provider Encounter Details Date Type Department Care Team (Late st Contact Info) Description 04/05/1999 Outpatient Historical [facility] Social History Tobacco Use Types Packs/Day Years Used Date Smoking Tobacco: Never Assessed Comments Unknown Sex and Gender Information Value Date Recorded Sex Assigned at Not on file Legal Sex Female 3:40 AM APPOINTMENT SCHEDULER Gender Identity Not on file Sexual Orientation Not on file documented as of this encounter Plan of Treatment Not on file documented as of this encounter Visit Diagnoses Not on filedocumented in this encounter Additional Health Concerns Infection Onset Date Last Indicated Resolved Time R/O COVID-19 01/31/2020 01/31/2020 02/02/2020 10:3 2 AM CDT documented as of this encounter Care Teams Semiconductor Wafers Etcher Stripper Relationship Specialty Start Date End Date Areli Gurrola MD [address] [place] [address] PCP - General Specialist 08/12/19 documented as of this encounter
--- OUTSIDE RECORDS SUMMARY | 2025-01-13 22:00 | XMS_ITS | Encounter Summary ---
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 Female 3:40 AM COKE DRAWER HAND Gender Identity Not on file Sexual Orientation Not on file documented as of this encounter Plan of Treatment Not on file documented as of this encounter Visit Diagnoses Not on filedocumented in this encounter Additional Health Concerns Infection Onset Date Last Indicated Resolved Time R/O COVID-19 01/31/2020 01/31/2020 02/02/2020 10:3 2 AM CDT documented as of this encounter Care Teams Rn Peritoneal Dialysis Relationship Specialty Start Date End Date Areli Gurrola MD [address] [place] [address] PCP - General Specialist 08/12/19 documented as of this encounter
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
--- OUTSIDE RECORDS SUMMARY | 2025-01-13 22:00 | XMS_ITS | Encounter Summary ---
Author Organization [facility] Address [address] [place] [address] Care Team Providers Care Trimmer Press Clippings Name Role Phone Areli Gurrola MD Primary Care Provider Encounter Details Date Type Department Care Team (Latest Contact Info) Description 09/12/2005 Outpatient Historical [facility] [address] [place] [address] Trell Maria Jr., MD [address] [place] [address] Anxiety State, Unspecified (Primary Dx) Social History Tobacco Use Types Packs/Day Years Used Date Smoking Tobacco: Never Assessed Comments Unknown Sex and Gender Information Value Date Recorded Sex Assigned at Not on file 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
--- OUTSIDE RECORDS SUMMARY | 2025-01-13 22:00 | XMS_ITS | Encounter Summary ---
Author Organization [facility] Address [address] [place] [address] Care Team Providers Care Telegraphic Service Dispatcher Name Role Phone Areli Gurrola MD Primary Care Provider Encounter Details Date Type Department Care Team (Latest Contact Info) Description 05/03/1999 Outpatient Historical [facility] [address] [place] [address] Alumno, Gibran Lynn MD [address] [place] [address] Cramp of limb (Primary Dx); Contracture of hand joint Social History Tobacco Use Types Packs/Day Years Used Date Smoking Tobacco: Never Assessed Comments Unknown Sex and Gender Information Value Date Recorded Sex Assigned at Not on file 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
--- OUTSIDE RECORDS SUMMARY | 2025-01-13 22:00 | XMS_ITS | Encounter Summary ---
Author Organization [facility] Address [address] [place] [address] Care Team Providers Care Address Change Clerk Name Role Phone Areli Gurrola MD Primary Care Provider Encounter Details Date Type Department Care Team (Latest Contact Info) Description 01/11/2004 Outpatient Historical [facility] [address] [place] [address] Trell York MD [address] [place] [phone] CERVICALGIA (Primary Dx); DYSTHYMIC DISORDER Social History Tobacco Use Types Packs/Day Years Used Date Smoking Tobacco: Never Assessed Comments Unknown Sex and Gender Information Value Date Recorded Sex Assigned at Not on file Legal 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
--- OUTSIDE RECORDS SUMMARY | 2025-01-13 22:00 | XMS_ITS | Encounter Summary ---
Author Organization [facility] Address [address] [place] [address] Care Team Providers Care Manager Psychiatry Name Role Phone Areli Gurrola MD Primary Care Provider Encounter Details Date Type Department Care Team (Latest Contact Info) Description 07/06/2004 Outpatient Historical [facility] [address] [place] [address] Trell York MD [address] [place] [phone] DYSTHYMIC DISORDER (Primary Dx); BACKACHE NOS; CERVICALGIA Social History Tobacco Use Types Packs/Day Years Used Date Smoking Tobacco: Never Assessed Comments Unknown Sex and Gender Information Value Date Recorded Sex Assigned at Not on file Legal 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
--- OUTSIDE RECORDS SUMMARY | 2025-01-13 22:00 | XMS_ITS | Encounter Summary ---
Author Organization [facility] Address [address] [place] [address] Care Team Providers Care Generation Manager Name Role Phone Areli Gurrola MD Primary Care Provider Encounter Details Date Type Department Care Team (Latest Contact Info) Description 02/14/1999 Outpatient Historical [facility] [address] [place] [address] Alumno, Gibran Lynn MD [address] [place] [address] Sprain and strain of other specified sites of shoulder and upper arm (Primary Dx) Social History Tobacco Use Types Packs/Day Years Used Date Smoking Tobacco: Never Assessed Comments Unknown Sex and Gender Information Value Date Recorded Sex Assigned at Not on file Legal Sex Female 3:40 AM CLIENT SOLUTIONS MANAGER Gender Identity Not on file Sexual [...] documented as of this encounter Care Teams Generation Manager Relationship Specialty Start Date End Date Areli Gurrola MD [address] [place] [address] PCP - General Specialist 08/12/19 documented as of this encounter
--- OUTSIDE RECORDS SUMMARY | 2025-01-13 22:00 | XMS_ITS | Encounter Summary ---
Author Organization [facility] Address [address] [place] [address] Care Team Providers Care Magazine Feeder Name Role Phone Areli Gurrola MD Primary Care Provider Encounter Details Date Type Department Care Team (Late st Contact Info) Description 04/14/1999 Outpatient Historical 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
--- OUTSIDE RECORDS SUMMARY | 2025-01-13 22:00 | XMS_ITS | Encounter Summary ---
Author Organization [facility] Address [address] [place] [address] Care Team Providers Care Railroad Detective Name Role Phone Areli Gurrola MD Primary Care Provider Encounter Details Date Type Department Care Team (Late st Contact Info) Description 03/31/1999 Outpatient Historical HIS [facility] Social History Tobacco Use Types Packs/Day Years Used Date Smoking Tobacco: Never Assessed Comments Unknown Sex and Gender Information Value Date Recorded Sex Assigned at Not on file Legal Sex Female 3:40 AM HOOP MAKER Gender Identity Not on file Sexual Orientation Not on file documented as of this encounter Plan of Treatment Not on file documented as of this encounter Visit Diagnoses Not on filedocumented in this encounter Additional Health Concerns Infection Onset Date Last Indicated Resolved Time R/O COVID-19 01/31/2020 01/31/2020 02/02/2020 10:3 2 AM CDT documented as of this encounter Care Teams Railroad Detective Relationship Specialty Start Date End Date Areli Gurrola MD [address] [place] [address] PCP - General Specialist 08/12/19 documented as of this encounter
--- OUTSIDE RECORDS SUMMARY | 2025-01-13 22:00 | XMS_ITS | Encounter Summary ---
Author Organization [facility] Address [address] [place] [address] Care Team Providers Care Resort Host Name Role Phone Areli Gurrola MD Primary Care Provider Encounter Details Date Type Department Care Team (Latest Contact Info) Description 10/28/[address] [facility] [place] [address] [place] [address] Gordon Cabral MD NO ADDRESS ON FILE SURGERY FOLLOWUP, UNSPEC (Primary Dx) Social History Tobacco Use Types Packs/Day Years Used Date Smoking Tobacco: Never Assessed Comments Unknown Sex and Gender Information Value Date Recorded Sex Assigned at Not on file Legal Sex Female 3:40 AM FLIGHT AGENT Gender Identity Not on file Sexual [...] documented as of this encounter Care Teams Resort Host Relationship Specialty Start Date End Date Areli Gurrola MD [address] [facility] [place] [address] PCP - General Specialist 08/12/19 documented as of this encounter
--- OUTSIDE RECORDS SUMMARY | 2025-01-13 22:00 | XMS_ITS | Encounter Summary ---
Author Organization [facility] Address [address] [facility] Attn: [place] [address] Care Team Providers Care Director Of Outpatient Services Name Role Phone Areli Gurrola MD Primary Care Provider Encounter Details Date Type Department Care Team (Late st Contact Info) Description 03/12/1999 Outpatient Historical Alumno, Gibran Lynn MD [address] [facility] [address] [place] [phone] Social History Tobacco Use Types Packs/Day Years Used Date Smoking Tobacco: Never Assessed Comments Unknown Sex and Gender Information Value Date Recorded Sex Assigned at Not on file Legal Sex Female 3:40 AM PAPERHANGER ASSISTANT Gender Identity Not on file Sexual Orientation Not on file documented as of this encounter Plan of Treatment Not on file documented as of this encounter Visit Diagnoses Not on filedocumented in this encounter Additional Health Concerns Infection Onset Date Last Indicated Resolved Time R/O COVID-19 01/31/2020 01/31/2020 02/02/2020 10:3 2 AM CDT documented as of this encounter Care Teams Director Of Outpatient Services Relationship Specialty Start Date End Date Areli Gurrola MD [address] [facility] [place] [address] PCP - General Specialist 08/12/19 documented as of this encounter
--- OUTSIDE RECORDS SUMMARY | 2025-01-13 22:00 | XMS_ITS | Encounter Summary ---
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 DEPUTY PROGRAM MANAGER Gender Identity Not on file Sexual Orientation Not on file documented as of this encounter Plan of Treatment Not on file documented as of this encounter Visit Diagnoses Not on filedocumented in this encounter Additional Health Concerns Infection Onset Date Last Indicated Resolved Time R/O COVID-19 01/31/2020 01/31/2020 02/02/2020 10:3 2 AM CDT documented as of this encounter Care Teams Quality Assurance Monitor Relationship Specialty Start Date End Date Areli Gurrola MD [address] [place] [address] PCP - General Specialist 08/12/19 documented as of this encounter
--- OUTSIDE RECORDS SUMMARY | 2025-01-13 22:00 | XMS_ITS | Encounter Summary ---
Author Organization [facility] Address [address] [place] [address] Care Team Providers Care Facilities Plant Engineer Name Role Phone Areli Gurrola MD Primary Care Provider Encounter Details Date Type Department Care Team (Latest Contact Info) Description 06/04/1998 Outpatient Historical [facility] Charli Perez MD NO ADDRESS ON FILE Open wound of forehead (Primary Dx) Social History Tobacco Use Types Packs/Day Years Used Date Smoking Tobacco: Never Assessed Comments Unknown Sex and Gender Information Value Date Recorded Sex Assigned at Not on file Legal Sex Female 3:40 AM MAKE UP GIRL Gender Identity Not on file Sexual Orientation [...] documented as of this encounter Care Teams Facilities Plant Engineer Relationship Specialty Start Date End Date Areli Gurrola MD [address] [place] [address] PCP - General Specialist 08/12/19 documented as of this encounter
--- OUTSIDE RECORDS SUMMARY | 2025-01-13 22:00 | XMS_ITS | Encounter Summary ---
Author Organization [facility] Address [address] [place] [address] Care Team Providers Care Forging Die Finisher Name Role Phone Areli Gurrola MD Primary Care Provider Encounter Details Date Type Department Care Team (Late st Contact Info) Description 06/24/2003 Outpatient Historical [facility] [place] [address] [place] [address] Shayy Landry MD [address] [address] Social History Tobacco Use Types Packs/Day Years Used Date Smoking Tobacco: Never Assessed Comments Unknown Sex and Gender Information Value Date Recorded Sex Assigned at Not on file Legal Sex Female 3:40 AM NURSING UNIT MANAGER Gender Identity Not on file Sexual Orientation Not on file documented as of this encounter Plan of Treatment Not on file documented as of this encounter Visit Diagnoses Not on filedocumented in this encounter Additional Health Concerns Infection Onset Date Last Indicated Resolved Time R/O COVID-19 01/31/2020 01/31/2020 02/02/2020 10:3 2 AM CDT documented as of this encounter Care Teams Forging Die Finisher Relationship Specialty Start Date End Date Areli Gurrola MD [address] [facility] [place] [address] PCP - General Specialist 08/12/19 documented as of this encounter
--- OUTSIDE RECORDS SUMMARY | 2025-01-13 22:00 | XMS_ITS | Encounter Summary ---
Author Organization [facility] Address [address] [place] [address] Care Team Providers Care Drop Forge Hand Name Role Phone Unavailable Primary Care Provider [...] on file Legal Sex Female 6:21 AM AUTO DAMAGE INSURANCE APPRAISER Gender Identity Not on file Sexual Orientation Not on file documented as of this encounter Plan of Treatment Not on file documented as of this encounter Visit Diagnoses Not on filedocumented in this encounter
--- OUTSIDE RECORDS SUMMARY | 2025-01-13 22:00 | XMS_ITS | Encounter Summary ---
Author Organization [facility] Address [address] 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 FARMER Gender Identity Not on file Sexual Orientation Not on file documented as of this encounter Plan of Treatment Not on file documented as of this encounter Visit Diagnoses Not on filedocumented in this encounter Additional Health Concerns Infection Onset Date Last Indicated Resolved Time R/O COVID-19 01/31/2020 01/31/2020 02/02/2020 10:3 2 AM CDT documented as of this encounter Care Teams Rn Access Relationship Specialty Start Date End Date Areli Gurrola MD [address] [facility] [place] [address] PCP - General Specialist 08/12/19 documented as of this encounter
--- OUTSIDE RECORDS SUMMARY | 2025-01-13 22:01 | XMS_ITS | Encounter Summary ---
Author Organization [facility] Address [address] [place] [address] Care Team Providers Care Conduit Bender Name Role Phone Areli Gurrola MD Primary Care Provider Encounter Details Date Type Department Care Team (Latest Contact Info) Description 07/29/2001 Outpatient Historical [facility] [address] [place] [address] Trell York MD [address] [place] [phone] COMMON MIGRAINE W/O MENTN INTRACT (Primary Dx); LUMBAGO Social History Tobacco Use Types Packs/Day Years Used Date Smoking Tobacco: Never Assessed Comments Unknown Sex and Gender Information Value Date Recorded Sex Assigned at Not on file Legal Sex Female 3:40 AM ADMISSIONS MANAGER RN Gender Identity Not on file Sexual [...] documented as of this encounter Care Teams Conduit Bender Relationship Specialty Start Date End Date Areli Gurrola MD [address] [facility] [place] [address] PCP - General Specialist 08/12/19 documented as of this encounter
--- OUTSIDE RECORDS SUMMARY | 2025-01-13 22:01 | XMS_ITS | Encounter Summary ---
Author Organization [facility] Address [address] [place] [address] Care Team Providers Care Computer Lab Para Professional Name Role Phone Areli Gurrola MD Primary Care Provider Encounter Details Date Type Department Care Team (Late st Contact Info) Description 10/30/2002 Emergency [facility] Emergency Department [address] [place] [address] Tomás Jade MD NO ADDRESS ON FILE FEMALE GENITAL SYMPTOMS NOS (Primary Dx) Social History Tobacco Use Types Packs/Day Years Used Date Smoking Tobacco: Never Assessed Comments Unknown Sex and Gender Information Value Date Recorded Sex Assigned at Not on file Legal Sex Female 3:40 AM SR. VENDOR MANAGEMENT ASSOCIATE Gender Identity Not on file Sexual [...] as of this encounter Care Teams Computer Lab Para Professional Relationship Specialty Start Date End Date Areli Gurrola MD [address] [place] [address] PCP - General Specialist 08/12/19 documented as of this encounter
--- OUTSIDE RECORDS SUMMARY | 2025-01-13 22:01 | XMS_ITS | Encounter Summary ---
Author Organization [facility] Address [address] [place] [address] Care Team Providers Care Brake Repairer Name Role Phone Areli Gurrola MD Primary Care Provider Encounter Details Date Type Department Care Team (Latest Contact Info) Description 04/21/2003 Outpatient [facility] [place] [address] [place] [address] Gordon Cabral MD NO ADDRESS ON FILE URIN TRACT INFECTION NOS (Primary Dx) Social History Tobacco Use Types Packs/Day Years Used Date Smoking Tobacco: Never Assessed Comments Unknown Sex and Gender Information Value Date Recorded Sex Assigned at Not on file Legal Sex Female 3:40 AM MITER OPERATOR Gender Identity Not on file Sexual [...] documented as of this encounter Care Teams Brake Repairer Relationship Specialty Start Date End Date Areli Gurrola MD [address] [facility] [place] [address] PCP - General Specialist 08/12/19 documented as of this encounter
--- OUTSIDE RECORDS SUMMARY | 2025-01-13 22:01 | XMS_ITS | Encounter Summary ---
Author Organization [facility] Address [address] [place] [address] Care Team Providers Care Customer Care Specialist Name Role Phone Areli Gurrola MD Primary Care Provider Encounter Details Date Type Department Care Team (Latest Contact Info) Description 10/09/2002 Outpatient Historical [facility] [place] [address] [place] [address] Gordon Cabral MD NO ADDRESS ON FILE Excessive menstruation (Primary Dx) Social History Tobacco Use Types Packs/Day Years Used Date Smoking Tobacco: Never Assessed Comments Unknown Sex and Gender Information Value Date Recorded Sex Assigned at Not on file Legal Sex Female 3:40 AM JEWEL BEARING DRILLER Gender Identity Not on file Sexual Orientation [...] as of this encounter Care Teams Customer Care Specialist Relationship Specialty Start Date End Date Areli Gurrola MD [address] [place] [address] PCP - General Specialist 08/12/19 documented as of this encounter
--- OUTSIDE RECORDS SUMMARY | 2025-01-13 22:01 | XMS_ITS | Encounter Summary ---
Author Organization [facility] Address [address] [place] [address] Care Team Providers Care Pressure Supervisor Name Role Phone Areli Gurrola MD Primary Care Provider Encounter Details Date Type Department Care Team (Latest Contact Info) Description 08/25/2002 Outpatient Historical [facility] [address] [place] [address] Trell York MD [address] [place] [phone] INSOMNIA NEC (Primary Dx); OTHER MALAISE AND FATIGUE; NEUROTIC DEPRESSION; CERVICALGIA Social History Tobacco Use Types Packs/Day Years Used Date Smoking Tobacco: Never Assessed Comments Unknown Sex and Gender Information Value Date Recorded Sex Assigned at Not on file Legal Sex Female 3:40 AM LACEWORKER Gender Identity Not on file Sexual Orientation [...] documented as of this encounter Care Teams Pressure Supervisor Relationship Specialty Start Date End Date Areli Gurrola MD [address] [facility] [place] [address] PCP - General Specialist 08/12/19 documented as of this encounter
--- OUTSIDE RECORDS SUMMARY | 2025-01-13 22:01 | XMS_ITS | Encounter Summary ---
Author Organization [facility] Address [address] [place] [address] Care Team Providers Care Research Epidemiologist Name Role Phone Areli Gurrola MD Primary Care Provider Encounter Details Date Type Department Care Team (Latest Contact Info) Description 10/31/2002 Outpatient Historical [facility] [place] [address] [place] [address] Gordon Cabral MD NO ADDRESS ON FILE SURGERY FOLLOWUP, UNSPEC (Primary Dx) Social History Tobacco Use Types Packs/Day Years Used Date Smoking Tobacco: Never Assessed Comments Unknown Sex and Gender Information Value Date Recorded Sex Assigned at Not on file Legal Sex Female 3:40 AM BRAKE ADJUSTER Gender Identity Not on file Sexual [...] as of this encounter Care Teams Research Epidemiologist Relationship Specialty Start Date End Date Areli Gurrola MD [address] [facility] [place] [address] PCP - General Specialist 08/12/19 documented as of this encounter
--- OUTSIDE RECORDS SUMMARY | 2025-01-13 22:01 | XMS_ITS | Encounter Summary ---
Author Organization [facility] Address [address] [place] [address] Care Team Providers Care Product Development Consultant Name Role Phone Areli Gurrola MD Primary Care Provider Encounter Details Date Type Department Care Team (Latest Contact Info) Description 07/16/2001 Outpatient Historical [facility] [address] [place] [address] Trell York MD [address] [place] [phone] SWELLING OF LIMB (Primary Dx) Social History Tobacco Use Types Packs/Day Years Used Date Smoking Tobacco: Never Assessed Comments Unknown Sex and Gender Information Value Date Recorded Sex Assigned at Not on file Legal Sex Female 3:40 AM ART EDITOR Gender Identity Not on file Sexual Orientation [...] as of this encounter Care Teams Product Development Consultant Relationship Specialty Start Date End Date Areli Gurrola MD [address] [facility] [place] [address] PCP - General Specialist 08/12/19 documented as of this encounter
--- OUTSIDE RECORDS SUMMARY | 2025-01-13 22:01 | XMS_ITS | Encounter Summary ---
Author Organization [facility] Address [address] [place] [address] Care Team Providers Care Auto Service Representative Name Role Phone Areli Gurrola MD Primary Care Provider Encounter Details Date Type Department Care Team (Latest Contact Info) Description 10/01/2002 Outpatient Historical [facility] [address] [place] [address] Trell York MD [address] [place] [phone] ACUTE SINUSITIS NOS (Primary Dx) Social History Tobacco Use Types Packs/Day Years Used Date Smoking Tobacco: Never Assessed Comments Unknown Sex and Gender Information Value Date Recorded Sex Assigned at Not on file Legal Sex Female 3:40 AM WOOD MOLDER Gender Identity Not on file Sexual [...] as of this encounter Care Teams Auto Service Representative Relationship Specialty Start Date End Date Areli Gurrola MD [address] [facility] [place] [address] PCP - General Specialist 08/12/19 documented as of this encounter
--- OUTSIDE RECORDS SUMMARY | 2025-01-13 22:01 | XMS_ITS | Encounter Summary ---
Author Organization [facility] Address [address] [place] [address] Care Team Providers Care Telecommunication Systems Designer Name Role Phone Areli Gurrola MD Primary Care Provider Encounter Details Date Type Department Care Team (Late st Contact Info) Description 06/27/2001 Outpatient Historical [facility] [address] [address] Renan Martinez MD [address] [place] [address] CHOLELITHIASIS NOS (Primary Dx); SURGERY FOLLOWUP, UNSPEC Social History Tobacco Use Types Packs/Day Years Used Date Smoking Tobacco: Never Assessed Comments Unknown Sex and Gender Information Value Date Recorded Sex Assigned at Not on file Legal Sex Female 3:40 AM RISK OFFICER Gender Identity Not on file Sexual [...] documented as of this encounter Care Teams Telecommunication Systems Designer Relationship Specialty Start Date End Date Areli Gurrola MD [address] [place] [address] PCP - General Specialist 08/12/19 documented as of this encounter
--- OUTSIDE RECORDS SUMMARY | 2025-01-13 22:01 | XMS_ITS | Encounter Summary ---
Author Organization [facility] Address [address] [place] [address] Care Team Providers Care Manager Analysis Name Role Phone Areli Gurrola MD Primary Care Provider Encounter Details Date Type Department Care Team (Latest Contact Info) Description 02/05/2003 Outpatient Historical [facility] [place] [address] [place] [address] Gordon Cabral MD NO ADDRESS ON FILE SURGERY FOLLOWUP, UNSPEC (Primary Dx) Social History Tobacco Use Types Packs/Day Years Used Date Smoking Tobacco: Never Assessed Comments Unknown Sex and Gender Information Value Date Recorded Sex Assigned at Not on file Legal Sex Female 3:40 AM WELDER OPERATOR Gender Identity Not on file Sexual [...] as of this encounter Care Teams Manager Analysis Relationship Specialty Start Date End Date Areli Gurrola MD [address] [facility] [place] [address] PCP - General Specialist 08/12/19 documented as of this encounter
--- OUTSIDE RECORDS SUMMARY | 2025-01-13 22:01 | XMS_ITS | Encounter Summary ---
Author Organization [facility] Address [address] [place] [address] Care Team Providers Care Biologics Specialist Name Role Phone Areli Gurrola MD Primary Care Provider Encounter Details Date Type Department Care Team (Latest Contact Info) Description 12/02/2002 Outpatient [facility] [place] [address] [place] [address] Gordon Cabral MD NO ADDRESS ON FILE FEMALE GENITAL SYMPTOMS NOS (Primary Dx) Social History Tobacco Use Types Packs/Day Years Used Date Smoking Tobacco: Never Assessed Comments Unknown Sex and Gender Information Value Date Recorded Sex Assigned at Not on file Legal Sex Female 3:40 AM DIRECTOR WOMEN Gender Identity Not on file Sexual Orientation [...] documented as of this encounter Care Teams Biologics Specialist Relationship Specialty Start Date End Date Areli Gurrola MD [address] [facility] [place] [address] PCP - General Specialist 08/12/19 documented as of this encounter
--- OUTSIDE RECORDS SUMMARY | 2025-01-13 22:01 | XMS_ITS | Encounter Summary ---
Author Organization [facility] Address [address] [place] [address] Care Team Providers Care Battery Filler Name Role Phone Areli Gurrola MD Primary Care Provider Encounter Details Date Type Department Care Team (Latest Contact Info) Description 10/14/2002 Outpatient Historical [facility] [address] [place] [address] Trell York MD [address] [place] [phone] ACUTE URI NOS (Primary Dx); COUGH Social History Tobacco Use Types Packs/Day Years Used Date Smoking Tobacco: Never Assessed Comments Unknown Sex and Gender Information Value Date Recorded Sex Assigned at Not on file Legal Sex Female 3:40 AM RESOURCE MANAGEMENT PLANNER Gender Identity Not on file Sexual Orientation [...] as of this encounter Care Teams Battery Filler Relationship Specialty Start Date End Date Areli Gurrola MD [address] [facility] [place] [address] PCP - General Specialist 08/12/19 documented as of this encounter
--- OUTSIDE RECORDS SUMMARY | 2025-01-13 22:01 | XMS_ITS | Encounter Summary ---
Author Organization [facility] Address [address] [place] [address] Care Team Providers Care Lieutenant/Deputy Name Role Phone Areli Gurrola MD Primary Care Provider Encounter Details Date Type Department Care Team (Latest Contact Info) Description 12/18/2002 Outpatient [facility] [place] [address] [place] [address] Gordon Cabral MD NO ADDRESS ON FILE PREOP EXAM OTHER SPECIFIED (Primary Dx); Excessive menstruation; FEMALE GENITAL SYMPTOMS NOS Social History Tobacco Use Types Packs/Day Years Used Date Smoking Tobacco: Never Assessed Comments Unknown Sex and Gender Information Value Date Recorded Sex Assigned at Not on file Legal Sex Female 3:40 AM ANNOUNCER Gender Identity Not on file Sexual Orientation [...] documented as of this encounter Care Teams Lieutenant/Deputy Relationship Specialty Start Date End Date Areli Gurrola MD [address] [place] [address] PCP - General Specialist 08/12/19 documented as of this encounter
--- OUTSIDE RECORDS SUMMARY | 2025-01-13 22:01 | XMS_ITS | Encounter Summary ---
Author Organization [facility] Address [address] [place]: [place] [address] Care Team Providers Care Registered Occupational Therapist Name Role Phone Areli Gurrola MD Primary Care Provider Encounter Details Date Type Department Care Team (Late st Contact Info) Description 07/30/2001 Outpatient Historical [place], Trell Pascual MD [address] [place] [phone] Social History Tobacco Use Types Packs/Day Years Used Date Smoking Tobacco: Never Assessed Comments Unknown Sex and Gender Information Value Date Recorded Sex Assigned at Not on file Legal Sex Female 3:40 AM TIE FASTENER Gender Identity Not on file Sexual Orientation Not on file documented as of this encounter Plan of Treatment Not on file documented as of this encounter Visit Diagnoses Not on filedocumented in this encounter Additional Health Concerns Infection Onset Date Last Indicated Resolved Time R/O COVID-19 01/31/2020 01/31/2020 02/02/2020 10:3 2 AM CDT documented as of this encounter Care Teams Registered Occupational Therapist Relationship Specialty Start Date End Date Areli Gurrola MD [address] [place] [phone] PCP - General Specialist 08/12/19 documented as of this encounter
--- OUTSIDE RECORDS SUMMARY | 2025-01-13 22:01 | XMS_ITS | Encounter Summary ---
Author Organization [facility] Address [address] [place] [address] Care Team Providers Care Target Worker Name Role Phone Areli Gurrola MD Primary Care Provider Encounter Details Date Type Department Care Team (Latest Contact Info) Description 12/04/2001 Outpatient [facility] [address] [place] [address] Trell York MD [address] [place] [phone] ACUTE BRONCHITIS (Primary Dx); COUGH Social History Tobacco Use Types Packs/Day Years Used Date Smoking Tobacco: Never Assessed Comments Unknown Sex and Gender Information Value Date Recorded Sex Assigned at Not on file Legal Sex Female 3:40 AM WARP HANGER Gender Identity Not on file Sexual Orientation Not on file documented as of this encounter Plan of Treatment Not on file documented as of this encounter Visit Diagnoses Diagnosis Acute bronchitis- Primary Cough documented in this encounter Additional Health Concerns Infection Onset Date Last Indicated Resolved Time R/O COVID-19 01/31/2020 01/31/2020 02/02/2020 10:3 2 AM CDT documented as of this encounter Care Teams Target Worker Relationship Specialty Start Date End Date Areil Gurrola MD [address] [facility] [place] [address] PCP - General Specialist 08/12/19 documented as of this encounter
--- OUTSIDE RECORDS SUMMARY | 2025-01-13 22:01 | XMS_ITS | Encounter Summary ---
Author Organization [facility] Address [address] [place] [address] Care Team Providers Care Director Communications Name Role Phone Areli Gurrola MD Primary Care Provider Encounter Details Date Type Department Care Team (Latest Contact Info) Description 10/20/2002 Outpatient Historical [facility] Pre[facility]mission [place] [address] [place] [address] [place] [address] Gordon Cabral MD NO ADDRESS ON FILE PREOP EXAM OTHER SPECIFIED (Primary Dx) Social History Tobacco Use Types Packs/Day Years Used Date Smoking Tobacco: Never Assessed Comments Unknown Sex and Gender Information Value Date Recorded Sex Assigned at Not on file Legal Sex Female 3:40 AM TOURIST AGENT Gender Identity Not on file Sexual [...] as of this encounter Care Teams Director Communications Relationship Specialty Start Date End Date Areli Gurrola MD [address] [place] [address] PCP - General Specialist 08/12/19 documented as of this encounter
--- OUTSIDE RECORDS SUMMARY | 2025-01-13 22:01 | XMS_ITS | Encounter Summary ---
Author Organization [facility] Address [address] [place] [address] Care Team Providers Care Concierge Name Role Phone Areli Gurrola MD [...] file Legal Sex Female 3:40 AM MANAGER STATISTICS Gender Identity Not on file Sexual Orientation [...] documented as of this encounter Care Teams Concierge Relationship Specialty Start Date End Date Areli Gurrola MD [address] [place] [address] PCP - General Specialist 08/12/19 documented as of this encounter
--- OUTSIDE RECORDS SUMMARY | 2025-01-13 22:01 | XMS_ITS | Encounter Summary ---
Author Organization [facility] Address [address] [place] [address] Care Team Providers Care Spool Worker Name Role Phone Areli Gurrola MD Primary Care Provider Encounter Details Date Type Department Care Team (Latest Contact Info) Description 11/25/2002 Outpatient Historical [facility] [place] [address] [place] [address] Gordon Cabral MD NO ADDRESS ON FILE DYSMENORRHEA (Primary Dx) Social History Tobacco Use Types Packs/Day Years Used Date Smoking Tobacco: Never Assessed Comments Unknown Sex and Gender Information Value Date Recorded Sex Assigned at Not on file Legal Sex Female 3:40 AM COLLECTIONS 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 Gender Identity Not on file Sexual Orientation Not on file documented as of this encounter Plan of Treatment Not on file documented as of this encounter Visit Diagnoses Diagnosis Dysmenorrhea- Primary documented in this encounter Additional Health Concerns Infection Onset Date Last Indicated Resolved Time R/O COVID-19 01/31/2020 01/31/2020 02/02/2020 10:3 2 AM CDT documented as of this encounter Care Teams Spool Worker Relationship Specialty Start Date End Date Areli Gurrola MD [address] [place] [address] PCP - General Specialist 08/12/19 documented as of this encounter
--- OUTSIDE RECORDS SUMMARY | 2025-01-13 22:01 | XMS_ITS | Encounter Summary ---
Author Organization [facility] Address [address] [place] [address] Care Team Providers Care Skoog Machine Operator Name Role Phone Areli Gurrola MD Primary Care Provider Encounter Details Date Type Department Care Team (Latest Contact Info) Description 10/21/2001 Outpatient Historical [facility] [address] [place] [address] Trell York MD [address] [place] [phone] NEUROTIC DEPRESSION (Primary Dx); LUMBAGO; ACUTE LARYNGOTRACH W OBSTR Social History Tobacco Use Types Packs/Day Years Used Date Smoking Tobacco: Never Assessed Comments Unknown Sex and Gender Information Value Date Recorded Sex Assigned at Not on file Legal Sex Female 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
--- OUTSIDE RECORDS SUMMARY | 2025-01-13 22:01 | XMS_ITS | Encounter Summary ---
Author Organization [facility] Address [address] [place] [address] Care Team Providers Care Skip Pit Worker Name Role Phone Areli Gurrola MD Primary Care Provider Encounter Details Date Type Department Care Team (Latest Contact Info) Description 08/20/2001 Outpatient Historical [facility] [address] [place] [address] Trell York MD [address] [place] [phone] ACUTE PHARYNGITIS (Primary Dx) Social History Tobacco Use Types Packs/Day Years Used Date Smoking Tobacco: Never Assessed Comments Unknown Sex and Gender Information Value Date Recorded Sex Assigned at Not on file 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 Gender Identity Not on file Sexual Orientation Not on file documented as of this encounter Plan of Treatment Not on file documented as of this encounter Visit Diagnoses Diagnosis Acute pharyngitis- Primary documented in this encounter Additional Health Concerns Infection Onset Date Last Indicated Resolved Time R/O COVID-19 01/31/2020 01/31/2020 02/02/2020 10:3 2 AM CDT documented as of this encounter Care Teams Skip Pit Worker Relationship Specialty Start Date End Date Areli Gurrola MD [address] [place] [address] PCP - General Specialist 08/12/19 documented as of this encounter
--- OUTSIDE RECORDS SUMMARY | 2025-01-13 22:01 | XMS_ITS | Encounter Summary ---
Author Organization [facility] Address [address] [place] [address] Care Team Providers Care Aligning Checker Name Role Phone Areli Gurrola MD Primary Care Provider Encounter Details Date Type Department Care Team (Latest Contact Info) Description 10/03/2002 Outpatient [facility] [place] [address] [place] [address] Gordon Cabral MD NO ADDRESS ON FILE METRORRHAGIA (Primary Dx) Social History Tobacco Use Types Packs/Day Years Used Date Smoking Tobacco: Never Assessed Comments Unknown Sex and Gender Information Value Date Recorded Sex Assigned at Not on file Legal Sex Female 3: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 CUSTOMER SERVICE 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
--- OUTSIDE RECORDS SUMMARY | 2025-01-13 22:01 | XMS_ITS | Encounter Summary ---
Author Organization [facility] Address [address] [place] [address] Care Team Providers Care Proof Technician Name Role Phone Areli Gurrola MD Primary Care Provider Encounter Details Date Type Department Care Team (Latest Contact Info) Description 12/18/2002 Outpatient Historical [facility] [address] [place] [address] Gordon Cabral MD NO ADDRESS ON FILE PREOP EXAM OTHER SPECIFIED (Primary Dx) Social History Tobacco Use Types Packs/Day Years Used Date Smoking Tobacco: Never Assessed Comments Unknown Sex and Gender Information Value Date Recorded Sex Assigned at Not on file Legal Sex Female 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
--- OUTSIDE RECORDS SUMMARY | 2025-01-13 22:01 | XMS_ITS | Encounter Summary ---
Author Organization [facility] Address [address] [place] [address] Care Team Providers Care Multiplex Operator Name Role Phone Areli Gurrola MD Primary Care Provider Encounter Details Date Type Department Care Team (Latest Contact Info) Description 01/09/2002 Outpatient Historical [facility] [address] [place] [address] Trell York MD [address] [place] [phone] HEADACHE (Primary Dx); CERVICALGIA Social History Tobacco Use Types Packs/Day Years Used Date Smoking Tobacco: Never Assessed Comments Unknown Sex and Gender Information Value Date Recorded Sex Assigned at Not on file Legal Sex Female 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
--- OUTSIDE RECORDS SUMMARY | 2025-01-13 22:01 | XMS_ITS | Encounter Summary ---
Author Organization [facility] Address [address] [place] [address] Care Team Providers Care Blower Insulator Name Role Phone Areli Gurrola MD Primary Care Provider Encounter Details Date Type Department Care Team (Latest Contact Info) Description 05/11/2003 [facility] [address] [place] [address] Trell York MD [address] [place] [phone] CERVICALGIA (Primary Dx) Social History Tobacco Use Types Packs/Day Years Used Date Smoking Tobacco: Never Assessed Comments Unknown Sex and Gender Information Value Date Recorded Sex Assigned at Not on file Legal Sex Female 3:40 AM BOOTH SUPERVISOR Gender Identity Not on file Sexual Orientation Not on file documented as of this encounter Plan of Treatment Not on file documented as of this encounter Visit Diagnoses Diagnosis Cervicalgia- Primary documented in this encounter Additional Health Concerns Infection Onset Date Last Indicated Resolved Time R/O COVID-19 01/31/2020 01/31/2020 02/02/2020 10:3 2 AM CDT documented as of this encounter Care Teams Blower Insulator Relationship Specialty Start Date End Date Areli Gurrola MD [address] [facility] [place] [address] PCP - General Specialist 08/12/19 documented as of this encounter
--- OUTSIDE RECORDS SUMMARY | 2025-01-13 22:01 | XMS_ITS | Encounter Summary ---
Author Organization [facility] Address [address] [place] [address] Care Team Providers Care Hand Bootmaker Name Role Phone Areli Gurrola MD Primary Care Provider Encounter Details Date Type Department Care Team (Latest Contact Info) Description 11/20/2001 Outpatient Historical [facility] [address] [place] [address] Trell York MD [address] [place] [phone] LUMBAGO (Primary Dx); SEBACEOUS CYST Social History Tobacco Use Types Packs/Day Years Used Date Smoking Tobacco: Never Assessed Comments Unknown Sex and Gender Information Value Date Recorded Sex Assigned at Not on file Legal Sex Female 3:40 AM SPINNING ROOM WORKER Gender Identity Not on file Sexual [...] as of this encounter Care Teams Hand Bootmaker Relationship Specialty Start Date End Date Areli Gurrola MD [address] [place] [phone] PCP - General Specialist 08/12/19 documented as of this encounter
--- OUTSIDE RECORDS SUMMARY | 2025-01-13 22:01 | XMS_ITS | Encounter Summary ---
Author Organization [facility] Address [address] [place] [address] Care Team Providers Care Table Games Floor Supervisor Name Role Phone Areli Gurrola MD Primary Care Provider Encounter Details Date Type Department Care Team (Latest Contact Info) Description 10/16/2002 Outpatient [facility] [address] [place] [address] Gordon Cabral MD NO ADDRESS ON FILE PREOP EXAM OTHER SPECIFIED (Primary Dx); Excessive menstruation Social History Tobacco Use Types Packs/Day Years Used Date Smoking Tobacco: Never Assessed Comments Unknown Sex and Gender Information Value Date Recorded Sex Assigned at Not on file Legal Sex Female 3:40 AM DE ICER FINISHER Gender Identity Not on file Sexual Orientation [...] documented as of this encounter Care Teams Table Games Floor Supervisor Relationship Specialty Start Date End Date Areli Gurrola MD [address] [facility] [place] [address] PCP - General Specialist 08/12/19 documented as of this encounter
--- OUTSIDE RECORDS SUMMARY | 2025-01-13 22:01 | XMS_ITS | Encounter Summary ---
Author Organization [facility] Address [address] [place] [address] Care Team Providers Care Group Director Experience Name Role Phone Areli Gurrola MD Primary Care Provider Encounter Details Date Type Department Care Team (Latest Contact Info) Description 01/20/2002 Outpatient Historical [facility] [address] [place] [address] Trell York MD [address] [place] [address] NEUROTIC DEPRESSION (Primary Dx); ANXIETY STATE NOS; CERVICALGIA; LUMBAGO Social History Tobacco Use Types Packs/Day Years Used Date Smoking Tobacco: Never Assessed Comments Unknown Sex and Gender Information Value Date Recorded Sex Assigned at Not on file Legal Sex Female 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
--- OUTSIDE RECORDS SUMMARY | 2025-01-13 22:01 | XMS_ITS | Encounter Summary ---
Author Organization [facility] Address [address] [place] [address] Care Team Providers Care Court Reporter Name Role Phone Areli Gurrola MD Primary Care Provider Encounter Details Date Type Department Care Team (Latest Contact Info) Description 07/09/2002 Outpatient Historical [facility] [address] [place] [address] Trell York MD [address] [place] [phone] OTHER MALAISE AND FATIGUE (Primary Dx); CERVICALGIA Social History Tobacco Use Types Packs/Day Years Used Date Smoking Tobacco: Never Assessed Comments Unknown Sex and Gender Information Value Date Recorded Sex Assigned at Not on file Legal Sex Female 3:[address] Gender Identity Not on file Sexual Orientation [...] documented as of this encounter Care Teams Court Reporter Relationship Specialty Start Date End Date Areli Gurrola MD [address] [facility] [place] [phone] PCP - General Specialist 08/12/19 documented as of this encounter
--- OUTSIDE RECORDS SUMMARY | 2025-01-13 22:01 | XMS_ITS | Encounter Summary ---
Author Organization [employer] [facility] Address [address] [place] [address] Care Team Providers Care Boring Machine Feeder Name Role Phone Areli Gurrola MD Primary Care Provider Encounter Details Date Type Department Care Team (Latest Contact Info) Description 10/03/2002 Outpatient [facility] [address] [place] [address] [place] [address] Gordon Cabral MD NO ADDRESS ON FILE MENSTRUAL DISORDER NEC (Primary Dx) Social History Tobacco Use Types Packs/Day Years Used Date Smoking Tobacco: Never Assessed Comments Unknown Sex and Gender Information Value Date Recorded Sex Assigned at Not on file Legal Sex Female 3:40 AM CASE FINISHER Gender Identity Not on file Sexual [...] of this encounter Care Teams Boring Machine Feeder Relationship Specialty Start Date End Date Areli Gurrola MD [address] [facility] [place] [address] PCP - General Specialist 08/12/19 documented as of this encounter
--- OUTSIDE RECORDS SUMMARY | 2025-01-13 22:01 | XMS_ITS | Encounter Summary ---
Author Organization [facility] Address [address] [place] [address] Care Team Providers Care Flame Annealing Machine Operator Name Role Phone Areli Gurrola MD Primary Care Provider Encounter Details Date Type Department Care Team (Latest Contact Info) Description 10/22/[address] [facility] [address] [place] [address] Gordon Cabral MD NO ADDRESS ON FILE POLYP OF CORPUS UTERI (Primary Dx) Social History Tobacco Use Types Packs/Day Years Used Date Smoking Tobacco: Never Assessed Comments Unknown Sex and Gender Information Value Date Recorded Sex Assigned at Not on file Legal Sex Female 3:40 AM AGED OR DISABLED CARE WORKER Gender Identity Not on file Sexual [...] as of this encounter Care Teams Flame Annealing Machine Operator Relationship Specialty Start Date End Date Areli Gurrola MD [address] [place] [address] PCP - General Specialist 08/12/19 documented as of this encounter
--- OUTSIDE RECORDS SUMMARY | 2025-01-13 22:01 | XMS_ITS | Encounter Summary ---
Author Organization [facility] Address [address] [place] [address] Care Team Providers Care Configuration Analyst Name Role Phone Areli Gurrola MD Primary Care Provider Encounter Details Date Type Department Care Team (Latest Contact Info) Description 10/09/2002 Outpatient Historical [facility] [address] [place] [address] Gordon Cabral MD NO ADDRESS ON FILE Excessive menstruation (Primary Dx) Social History Tobacco Use Types Packs/Day Years Used Date Smoking Tobacco: Never Assessed Comments Unknown Sex and Gender Information Value Date Recorded Sex Assigned at Not on file Legal 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
--- OUTSIDE RECORDS SUMMARY | 2025-01-13 22:01 | XMS_ITS | Encounter Summary ---
Author Organization [facility] Address [address] [place] [address] Care Team Providers Care Shop Coordinator Name Role Phone Areli Gurrola MD Primary Care Provider Encounter Details Date Type Department Care Team (Latest Contact Info) Description 07/30/2002 Outpatient Historical [facility] [address] [place] [address] Trell York MD [address] [place] [phone] INSOMNIA NEC (Primary Dx); NEUROTIC DEPRESSION; LUMBAGO Social History Tobacco Use Types Packs/Day Years Used Date Smoking Tobacco: Never Assessed Comments Unknown Sex and Gender Information Value Date Recorded Sex Assigned at Not on file Legal Sex Female 3:40 AM MEAT COUNTER WORKER Gender Identity Not on file Sexual [...] documented as of this encounter Care Teams Shop Coordinator Relationship Specialty Start Date End Date Areli Gurrola MD [address] [facility] [facility] [address] [place] [address] PCP - General Specialist 08/12/19 documented as of this encounter
--- OUTSIDE RECORDS SUMMARY | 2025-01-13 22:02 | XMS_ITS | Encounter Summary ---
Author Organization [facility] Address [address] [place] [address] Care Team Providers Care Asp Web Developer Name Role Phone Areli Gurrola MD Primary Care Provider Encounter Details Date Type Department Care Team (Latest Contact Info) Description 03/26/2002 Outpatient Historical [facility] [address] [place] [address] Trell York MD [address] [place] [phone] CERVICALGIA (Primary Dx); ABDOMINAL PAIN UNSPEC SITE Social History Tobacco Use Types Packs/Day Years Used Date Smoking Tobacco: Never Assessed Comments Unknown Sex and Gender Information Value Date Recorded Sex Assigned at Not on file Legal Sex Female 3:40 AM MUTUEL CLERK Gender Identity Not on file Sexual [...] documented as of this encounter Care Teams Asp Web Developer Relationship Specialty Start Date End Date Areli Gurrola MD [address] [facility] [place] [address] PCP - General Specialist 08/12/19 documented as of this encounter
--- OUTSIDE RECORDS SUMMARY | 2025-01-13 22:02 | XMS_ITS | Encounter Summary ---
Author Organization [facility] Address [address] [place] [address] Care Team Providers Care Dianetic Counselor Name Role Phone Areli Gurrola MD Primary Care Provider Encounter Details Date Type Department Care Team (Latest Contact Info) Description 04/07/2002 Outpatient Historical [facility] [address] [place] [address] Trell York MD [address] [place] [phone] URTICARIA NOS (Primary Dx) Social History Tobacco Use Types Packs/Day Years Used Date Smoking Tobacco: Never Assessed Comments Unknown Sex and Gender Information Value Date Recorded Sex Assigned at Not on file Legal Sex Female 3:40 AM SOIL SAMPLER Gender Identity Not on file Sexual Orientation Not on file documented as of this encounter Plan of Treatment Not on file documented as of this encounter Visit Diagnoses Diagnosis Urticaria, unspecified- Primary documented in this encounter Additional Health Concerns Infection Onset Date Last Indicated Resolved Time R/O COVID-19 01/31/2020 01/31/2020 02/02/2020 10:3 2 AM CDT documented as of this encounter Care Teams Dianetic Counselor Relationship Specialty Start Date End Date Areli Gurrola MD [address] [facility] [place] [address] PCP - General Specialist 08/12/19 documented as of this encounter
--- OUTSIDE RECORDS SUMMARY | 2025-01-13 22:02 | XMS_ITS | Encounter Summary ---
Author Organization [facility] Address [address] [place] [address] Care Team Providers Care Mechanical Systems Control Engineer Name Role Phone Areli Gurrola MD Primary Care Provider Encounter Details Date Type Department Care Team (Late st Contact Info) Description 04/14/2002 Outpatient Historical [facility] [address] [place] [address] Miguelangel Mas, NO ADDRESS ON FILE JOINT PAIN-ANKLE (Primary Dx) Social History Tobacco Use Types Packs/Day Years Used Date Smoking Tobacco: Never Assessed Comments Unknown Sex and Gender Information Value Date Recorded Sex Assigned at Not on file Legal Sex Female 3:40 AM MARBLE POLISHER Gender Identity Not on file Sexual Orientation [...] as of this encounter Care Teams Mechanical Systems Control Engineer Relationship Specialty Start Date End Date Areli Gurrola MD [address] [place] [address] PCP - General Specialist 08/12/19 documented as of this encounter
--- OUTSIDE RECORDS SUMMARY | 2025-01-13 22:02 | XMS_ITS | Encounter Summary ---
Author Organization [facility] Address [address] [place] [address] Care Team Providers Care Broom Maker Name Role Phone Areli Gurrola MD Primary Care Provider Encounter Details Date Type Department Care Team (Latest Contact Info) Description 04/10/2002 Outpatient Historical [facility] [place] [address] [facility] [address] [place] [address] Gildardo Ace MD [address] [place] [phone] ABDOMINAL PAIN EPIGASTRIC (Primary Dx) Social History Tobacco Use Types Packs/Day Years Used Date Smoking Tobacco: Never Assessed Comments Unknown Sex and Gender Information Value Date Recorded Sex Assigned at Not on file Legal Sex Female 3:40 AM SHOPPER Gender Identity Not on file Sexual [...] documented as of this encounter Care Teams Broom Maker Relationship Specialty Start Date End Date Areli Gurrola MD [address] [place] [address] PCP - General Specialist 08/12/19 documented as of this encounter
--- OUTSIDE RECORDS SUMMARY | 2025-01-13 22:02 | XMS_ITS | Encounter Summary ---
Author Organization [facility] Address [address] [place] [address] Care Team Providers Care Hr Assistant Name Role Phone Areli Gurrola MD Primary Care Provider Encounter Details Date Type Department Care Team (Late st Contact Info) Description 04/14/2002 Outpatient [facility] [address] [place] [address] Miguelangel Mas, NO ADDRESS ON FILE SPRAIN OF ANKLE NOS (Primary Dx) Social History Tobacco Use Types Packs/Day Years Used Date Smoking Tobacco: Never Assessed Comments Unknown Sex and Gender Information Value Date Recorded Sex Assigned at Not on file Legal Sex Female 3:40 AM STAFF PHARMACIST HOSPITAL Gender Identity Not on file Sexual Orientation [...] as of this encounter Care Teams Hr Assistant Relationship Specialty Start Date End Date Areli Gurrola MD [address] [facility] [place] [address] PCP - General Specialist 08/12/19 documented as of this encounter
--- OUTSIDE RECORDS SUMMARY | 2025-01-13 22:03 | XMS_ITS | Encounter Summary ---
Author Organization [facility] Address [address] [place] [address] Care Team Providers Care Supervisor Pumping Station Name Role Phone Areli Gurrola MD Primary Care Provider Encounter Details Date Type Department Care Team (Latest Contact Info) Description 03/20/2002 Outpatient Historical [facility] [address] [place] [address] Trell York MD [address] [place] [phone] ESOPHAGITIS, UNSPECIFIED (Primary Dx); CERVICALGIA; UNSPEC CONSTIPATION Social History Tobacco Use Types Packs/Day Years Used Date Smoking Tobacco: Never Assessed Comments Unknown Sex and Gender Information Value Date Recorded Sex Assigned at Not on file Legal Sex Female 3:40 AM PERSONAL BANKER Gender Identity Not on file Sexual [...] as of this encounter Care Teams Supervisor Pumping Station Relationship Specialty Start Date End Date Areli Gurrola MD [address] [facility] [facility] [place] [address] PCP - General Specialist 08/12/19 documented as of this encounter
[2025-01-13 22:05] VITALS: PULSE 100; O2SAT 96
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
[2025-01-13 22:58] LABS: Hematocrit 28.8 % (36-47); Hemoglobin 9.50 g/dL (11.27-16.99); Mean Corpuscular HGB Conc 33.0 g/dL (30-55); Mean Corpuscular Hemoglobin 28.7 pg (27-33); Mean Corpuscular Volume 87.0 fl (85-98); Nucleated Red Blood Cells % 0 %; Platelet Count 68 10^3/cmm (157-399); Red Blood Count 3.31 10^6/uL (3.85-5.65); White Blood Count 3.63 10^3/uL (3.29-11.43)
[2025-01-13 22:59] LABS: Respiratory Syncytial Virus Ce NEGATIVE (Negative); SARS-CoV-2 PCR NEGATIVE (Negative)
[2025-01-13 23:04] VITALS: RESP 18; O2SAT 96
[2025-01-13] MEDS: morphine 4 mg/mL SDV 1 mL IM (23:04)
[2025-01-13] MEDS: orphenadrine 30 mg/mL Inj 2 mL 60 MG IM (23:04)
[2025-01-13 23:11] VITALS: BP 140/85; PULSE 90; RESP 16; O2SAT 97
[2025-01-13 23:21] LABS: Alanine Aminotransferase 24 U/L (0-33); Albumin Level 2.8 g/dL (3.5-5.2); Alkaline Phosphatase 143 U/L (35-105); Anion Gap 11.9 (5-19); Aspartate Amino Transferase 47 U/L (0-32); Blood Urea Nitrogen 12 mg/dL (6-20); Calcium 8.2 mg/dL (8.5-10.5); Carbon Dioxide 22 mmol/L (22-29); Chloride 108 mmol/L (98-107); Creatinine Clr Calc Pharmacy 222.2292; Globulin 2.4 g/dL (1.3-4.6); Glucose 126 mg/dL (65-115); Osmolality Calculated 287 mOsm/kg (285-295); Potassium 3.9 mmol/L (3.5-5.1); Sodium 138 mmol/L (136-145); Total Protein 5.2 g/dL (6.6-8.7)
[2025-01-13] MEDS: HYDROcodone-acetaminophen 5-325 mg Tablet 2 TAB PO (23:55)
[2025-01-14 00:05] VITALS: BP 121/67; PULSE 79; RESP 16; O2SAT 98
== END 2025-01-14 00:05 | disposition home or self-care (01) ==
PROVIDERS: Emergency Provider Physician Assistant; PCP Physician Assistant
DX: M54.40 Lumbago with sciatica, unspecified side (principal); E11.40 Type 2 diabetes mellitus with diabetic neuropathy, unspecified; I50.9 Heart failure, unspecified; F17.210 Nicotine dependence, cigarettes, uncomplicated; F17.290 Nicotine dependence, other tobacco product, uncomplicated; Z11.52 Encounter for screening for COVID-19
CPT/HCPCS: 36415; 80053; 85025; 85651; 86140; 87040; 87637; 96372; 99284; J1100; J2270; J2360; J9999

== ENCOUNTER 2025-01-26 17:11 | Observation (INO) | payer MEDICARE, MEDICAID, SELFPAY ==
--- OUTSIDE RECORDS SUMMARY | 2024-02-02 04:00 | XMS_ITS ---
Author Organization [facility] Address [address] [place] [address] Care Team Providers Care Academic Affairs Vice President Name Role Phone Joseph Lewis MD Primary Care Provider Zane Joiner Unavailable [phone] ELROY BOOTHE Unavailable Unavailable Migration, Provider Unavailable Unavailable REASON FOR VISIT EMR-Luke Encounters Encounter Location Date Provider Diagnosis Migrated_Facility 0 0 02/02/2024 Provider Migration Plan Of Treatment Medication Medication Name Sig Start Date Stop Date Notes Zubsolv 5.7-1.4 mg sublingual tablet, sublingual 1 Tablet Twice a Day 02/20/2019 03/22/2019 *Reorder from [facility] for eRx and Interaction Alerts* Progress Notes * Kay GAMBOA MDOB:1965 (59 yo F)Acc No.[id number]:02/02/2024 Patient: Elva Kay RODRGIUEZ :1965 A ge:58 Y S ex:Female Address:[address] [place] [address] * Refills Stop Zubsolv 5.7-1.4 mg sublingual tablet, sublingual, 1 Tablet Twice a Day Subjective: * Chief Complaints: * E MR-Lkue * * Date:
--- OUTSIDE RECORDS SUMMARY | 2024-02-03 04:00 | XMS_ITS ---
Author Organization [facility] Address [address] [place] [address] Care Team Providers Care Gum Scoring Machine Operator Name Role Phone Joseph Lewis MD Primary Care Provider Zane Joiner Unavailable [phone] ELROY BOOTHE Unavailable Unavailable Migration, Provider Unavailable [...] * Kay GAMBOA MDOB:1965 (59 yo F)Acc No.[id number]:02/03/2024 Patient: Elva CADEKay BIGGS :1965 A ge:58 Y S ex:Female Address:[address] [place] [address] Subjective: * Chief Complaints: * E MR-Luke [...]
[2024-09-18 15:42] VITALS: BP 147/78; BMI 37.0
--- OUTSIDE RECORDS SUMMARY | 2025-01-26 17:18 | XMS_ITS | Encounter Summary ---
Author Organization [facility] Address [address] [place] [address] Care Team Providers Care Cardiology Manager Name Role Phone Areli Gurrola MD Primary Care Provider Encounter Details Date Type Department Care Team (Latest Contact Info) Description 01/30/2000 Outpatient Historical [facility] [address] [place] [address] Trell York MD [address] [place] [phone] Lumbago (Primary Dx) Social History Tobacco Use Types Packs/Day Years Used Date Smoking Tobacco: Never Assessed Comments Unknown Sex and Gender Information Value Date Recorded Sex Assigned at Not on file Legal Sex 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 Gender Identity Not on file Sexual Orientation Not on file documented as of this encounter Plan of Treatment Not on file documented as of this encounter Visit Diagnoses Diagnosis Lumbago- Primary documented in this encounter Additional Health Concerns Infection Onset Date Last Indicated Resolved Time R/O COVID-19 01/31/2020 01/31/2020 02/02/2020 10:3 2 AM CDT documented as of this encounter Care Teams Cardiology Manager Relationship Specialty Start Date End Date Areli Gurrola MD [address] [place] [address] PCP - General Specialist 08/12/19 documented as of this encounter
--- OUTSIDE RECORDS SUMMARY | 2025-01-26 17:18 | XMS_ITS | Encounter Summary ---
Author Organization [facility] Address [address] Attn: [place] [address] Care Team Providers Care Flash Oven Operator Name Role Phone Areli Gurrola MD [...] on file Legal Sex Female 3:40 AM HATCH BOSS Gender Identity Not on file Sexual Orientation Not on file documented as of this encounter Plan of Treatment Not on file documented as of this encounter Visit Diagnoses Not on filedocumented in this encounter Additional Health Concerns Infection Onset Date Last Indicated Resolved Time R/O COVID-19 01/31/2020 01/31/2020 02/02/2020 10:3 2 AM CDT documented as of this encounter Care Teams Flash Oven Operator Relationship Specialty Start Date End Date Areli Gurrola MD [address] [facility] [place] [address] PCP - General Specialist 08/12/19 documented as of this encounter
--- OUTSIDE RECORDS SUMMARY | 2025-01-26 17:18 | XMS_ITS | Encounter Summary ---
Author Organization [facility] Address [address] [place] [address] Care Team Providers Care Abstract Checker Name Role Phone Areli Gurrola MD Primary Care Provider Encounter Details Date Type Department Care Team (Latest Contact Info) Description 04/23/[address] 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
--- OUTSIDE RECORDS SUMMARY | 2025-01-26 17:18 | XMS_ITS | Encounter Summary ---
Author Organization [facility] Address [address] [place] [address] Care Team Providers Care Rural Mail Contractor Name Role Phone Areli Gurrola MD Primary Care Provider Encounter Details Date Type Department Care Team (Latest Contact Info) Description 06/07/2000 Outpatient Historical [facility] [address] [place] [address] Trell York MD [address] [place] [phone] Lumbago (Primary Dx); Open wound of foot except toe(s) alone, without mention of complication Social History Tobacco Use Types Packs/Day Years Used Date Smoking Tobacco: Never Assessed Comments Unknown Sex and Gender Information Value Date Recorded Sex Assigned at Not on file 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
--- OUTSIDE RECORDS SUMMARY | 2025-01-26 17:18 | XMS_ITS | Encounter Summary ---
Author Organization [facility] Address [address] [place] [address] Care Team Providers Care Green Coffee Blender Name Role Phone Areli Gurrola MD Primary Care Provider Encounter Details Date Type Department Care Team (Latest Contact Info) Description 12/27/1999 Outpatient [facility] [address] [place] [address] Trell York MD [address] [place] [phone] Migraine without aura, without mention of intractable migraine without mention of status migrainosus (Primary Dx); Lumbago Social History Tobacco Use Types Packs/Day Years Used Date Smoking Tobacco: Never Assessed Comments Unknown Sex and Gender Information Value Date Recorded Sex Assigned at Not on file 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
--- OUTSIDE RECORDS SUMMARY | 2025-01-26 17:18 | XMS_ITS | Encounter Summary ---
Author Organization [facility] Address [address] [place] [address] Care Team Providers Care Bait Digger Name Role Phone Areli Gurrola MD Primary Care Provider Encounter Details Date Type Department Care Team (Latest Contact Info) Description 02/21/2000 Outpatient Historical [facility] [address] [place] [address] Trell York MD [address] [place] [phone] Stricture of cervix (Primary Dx); Lumbago Social History Tobacco Use Types Packs/Day Years Used Date Smoking Tobacco: Never Assessed Comments Unknown Sex and Gender Information Value Date Recorded Sex Assigned at Not on file 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
--- OUTSIDE RECORDS SUMMARY | 2025-01-26 17:18 | XMS_ITS | Encounter Summary ---
Author Organization [facility] Address [address] [place] [address] Care Team Providers Care Supply Person Name Role Phone Areli Gurrola MD Primary Care Provider Encounter Details Date Type Department Care Team (Latest Contact Info) Description 03/14/2000 [facility]patient [facility] [address] [place] [address] Trell York MD [address] [place] [phone] Unspecified disorder of female genital organs (Primary Dx); Lumbago Social History Tobacco Use Types Packs/Day Years Used Date Smoking Tobacco: Never Assessed Comments Unknown Sex and Gender Information Value Date Recorded Sex Assigned at Not on file Legal 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
--- OUTSIDE RECORDS SUMMARY | 2025-01-26 17:18 | XMS_ITS | Encounter Summary ---
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 Gender Identity Not on file Sexual Orientation Not on file documented as of this encounter Plan of Treatment Not on file documented as of this encounter Visit Diagnoses Not on filedocumented in this encounter Additional Health Concerns Infection Onset Date Last Indicated Resolved Time R/O COVID-19 01/31/2020 01/31/2020 02/02/2020 10:3 2 AM CDT documented as of this encounter Care Teams Director Of Business Applications Relationship Specialty Start Date End Date Areli Gurrola MD [address] [place] [address] PCP - General Specialist 08/12/19 documented as of this encounter
--- OUTSIDE RECORDS SUMMARY | 2025-01-26 17:18 | XMS_ITS | Encounter Summary ---
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 Female 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
--- OUTSIDE RECORDS SUMMARY | 2025-01-26 17:18 | XMS_ITS | Encounter Summary ---
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
--- OUTSIDE RECORDS SUMMARY | 2025-01-26 17:18 | XMS_ITS | Encounter Summary ---
Author Organization [facility] Address [address] [facility] Attn: [place] [address] Care Team Providers Care Hearing Officer Name Role Phone Areli Gurrola MD [...] file Legal Sex Female 3:40 AM MUTUEL TELLER Gender Identity Not on file Sexual Orientation Not on file documented as of this encounter Plan of Treatment Not on file documented as of this encounter Visit Diagnoses Not on filedocumented in this encounter Additional Health Concerns Infection Onset Date Last Indicated Resolved Time R/O COVID-19 01/31/2020 01/31/2020 02/02/2020 10:3 2 AM CDT documented as of this encounter Care Teams Hearing Officer Relationship Specialty Start Date End Date Areli Gurrola MD [address] [place] [address] PCP - General Specialist 08/12/19 documented as of this encounter
--- OUTSIDE RECORDS SUMMARY | 2025-01-26 17:19 | XMS_ITS | Encounter Summary ---
Author Organization [facility] Address [address] [place] [address] Care Team Providers Care Metal Burnisher Name Role Phone Areli Gurrola MD Primary Care Provider Encounter Details Date Type Department Care Team (Latest Contact Info) Description 12/05/2000 [facility]patient [facility] [address] [place] [address] Trell York MD [address] [place] [phone] Lumbago (Primary Dx); Cervicalgia; Pain in joint, pelvic region and thigh Social History Tobacco Use Types Packs/Day Years Used Date Smoking Tobacco: Never Assessed Comments Unknown Sex and Gender Information Value Date Recorded Sex Assigned at Not on file Legal Sex Female 3:40 AM SPAGHETTI PRESS HELPER Gender Identity Not on file Sexual [...] as of this encounter Care Teams Metal Burnisher Relationship Specialty Start Date End Date Areli Gurrola MD [address] [place] [address] PCP - General Specialist 08/12/19 documented as of this encounter
--- OUTSIDE RECORDS SUMMARY | 2025-01-26 17:19 | XMS_ITS | Encounter Summary ---
Author Organization [facility] Address [address] [place] [address] Care Team Providers Care Clay Artisan Name Role Phone Areli Gurrola MD Primary Care Provider Encounter Details Date Type Department Care Team (Latest Contact Info) Description 01/07/2001 Outpatient Historical 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
--- OUTSIDE RECORDS SUMMARY | 2025-01-26 17:19 | XMS_ITS | Encounter Summary ---
Author Organization [facility] Address [address] [place] [address] Care Team Providers Care Supervisor Spinning Name Role Phone Areli Gurrola MD Primary Care Provider Encounter Details Date Type Department Care Team (Latest Contact Info) Description 06/08/1999 Outpatient Historical [facility] [place], Trell Pascaul MD [address] [place] [address] Obesity, unspecified (Primary Dx); Encounter for long-term (current) use of other medications Social History Tobacco Use Types Packs/Day Years Used Date Smoking Tobacco: Never Assessed Comments Unknown Sex and Gender Information Value Date Recorded Sex Assigned at Not on file Legal Sex Female 3:40 AM PROCESS OPERATOR Gender Identity Not on file Sexual [...] as of this encounter Care Teams Supervisor Spinning Relationship Specialty Start Date End Date Areli Gurrola MD [address] [facility] [place] [address] PCP - General Specialist 08/12/19 documented as of this encounter
--- OUTSIDE RECORDS SUMMARY | 2025-01-26 17:19 | XMS_ITS | Encounter Summary ---
Author Organization [facility] Address [address] [place] [address] Care Team Providers Care Bird Trapper Name Role Phone Areli Gurrola MD Primary Care Provider Encounter Details Date Type Department Care Team (Latest Contact Info) Description 07/27/2000 Outpatient Historical [facility] [address] [place] [address] Trell [place] MD [address] [place] [phone] Unspecified disorder of female genital organs (Primary Dx); Cervicalgia Social History Tobacco Use Types Packs/Day Years Used Date Smoking Tobacco: Never Assessed Comments Unknown Sex and Gender Information Value Date Recorded Sex Assigned at Not on file Legal Sex Female 3:40 AM SECURITY GUARD DISPATCHER Gender Identity Not on file Sexual [...] documented as of this encounter Care Teams Bird Trapper Relationship Specialty Start Date End Date Areli Gurrola MD [address] [place] [address] PCP - General Specialist 08/12/19 documented as of this encounter
--- OUTSIDE RECORDS SUMMARY | 2025-01-26 17:19 | XMS_ITS | Encounter Summary ---
Author Organization [facility] Address [address] [place] [address] Care Team Providers Care Buying Intern Name Role Phone Areli Gurrola MD Primary Care Provider Encounter Details Date Type Department Care Team (Latest Contact Info) Description 07/20/1999 Outpatient Historical [facility] Joseph Ramos MD [address] [place] [address] Pain in joint, hand (Primary Dx) Social History Tobacco Use Types Packs/Day Years Used Date Smoking Tobacco: Never Assessed Comments Unknown Sex and Gender Information Value Date Recorded Sex Assigned at Not on file Legal Sex Female 3:40 AM GUNNER'S MATE Gender Identity Not on file Sexual Orientation [...] documented as of this encounter Care Teams Buying Intern Relationship Specialty Start Date End Date Areli Gurrola MD [address] [facility] [place] [address] PCP - General Specialist 08/12/19 documented as of this encounter
--- OUTSIDE RECORDS SUMMARY | 2025-01-26 17:19 | XMS_ITS | Encounter Summary ---
Author Organization [facility] Address [address] [place] [address] Care Team Providers Care Gm Mobile Name Role Phone Areli Gurrola MD Primary Care Provider Encounter Details Date Type Department Care Team (Latest Contact Info) Description 10/08/2000 Outpatient Historical [facility] [address] [place] [address] Trell [place] MD [address] [place] [phone] Sprain and strain of unspecified site of knee and leg (Primary Dx) Social History Tobacco Use Types Packs/Day Years Used Date Smoking Tobacco: Never Assessed Comments Unknown Sex and Gender Information Value Date Recorded Sex Assigned at Not on file Legal Sex Female 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
--- OUTSIDE RECORDS SUMMARY | 2025-01-26 17:19 | XMS_ITS | Encounter Summary ---
Author Organization [facility] Address [address] [place] [address] Care Team Providers Care Barrel Tester And Drainer Name Role Phone Areli Gurrola MD Primary Care Provider Encounter Details Date Type Department Care Team (Latest Contact Info) Description 03/27/2001 Outpatient Historical [facility] [address] [place] [address] Trell York MD [address] [place] [phone] CERVICALGIA (Primary Dx); NEUROTIC DEPRESSION; LUMBAGO Social History Tobacco Use Types Packs/Day Years Used Date Smoking Tobacco: Never Assessed Comments Unknown Sex and Gender Information Value Date Recorded Sex Assigned at Not on file Legal Sex Female 3:40 AM REGENERATION OPERATOR Gender Identity Not on file Sexual [...] documented as of this encounter Care Teams Barrel Tester And Drainer Relationship Specialty Start Date End Date Areli Gurrola MD [address] [place] [address] PCP - General Specialist 08/12/19 documented as of this encounter
--- OUTSIDE RECORDS SUMMARY | 2025-01-26 17:19 | XMS_ITS | Encounter Summary ---
Author Organization [facility] Address [address] [place] [address] Care Team Providers Care Art Manager Name Role Phone Areli Gurrola MD Primary Care Provider Encounter Details Date Type Department Care Team (Latest Contact Info) Description 06/20/1999 Outpatient Historical [facility] Joseph Ramos MD [address] [place] [address] Pain in joint, hand (Primary Dx) Social History Tobacco Use Types Packs/Day Years Used Date Smoking Tobacco: Never Assessed Comments Unknown Sex and Gender Information Value Date Recorded Sex Assigned at Not on file Legal Sex Female 3:40 AM BRAKE MECHANIC Gender Identity Not on file Sexual [...] documented as of this encounter Care Teams Art Manager Relationship Specialty Start Date End Date Areli Gurrola MD [address] [facility] [place] [address] PCP - General Specialist 08/12/19 documented as of this encounter
--- OUTSIDE RECORDS SUMMARY | 2025-01-26 17:19 | XMS_ITS | Encounter Summary ---
Author Organization [facility] Address [address] [place] [address] Care Team Providers Care Property Portfolio Officer Name Role Phone Areli Gurrola MD Primary Care Provider Encounter Details Date Type Department Care Team (Latest Contact Info) Description 08/18/1999 Outpatient Historical [facility] Joseph Ramos MD [address] [place] [address] Pain in joint, hand (Primary Dx) Social History Tobacco Use Types Packs/Day Years Used Date Smoking Tobacco: Never Assessed Comments Unknown Sex and Gender Information Value Date Recorded Sex Assigned at Not on file Legal Sex Female 3:40 AM PESTICIDE CONTROL INSPECTOR Gender Identity Not on file Sexual [...] documented as of this encounter Care Teams Property Portfolio Officer Relationship Specialty Start Date End Date Areli Gurrola MD [address] [facility] [place] [address] PCP - General Specialist 08/12/19 documented as of this encounter
--- OUTSIDE RECORDS SUMMARY | 2025-01-26 17:19 | XMS_ITS | Encounter Summary ---
Author Organization [facility] Address [address] [place]: [place] [address] Care Team Providers Care Maintenance Machine Repairer Name Role Phone Areli Gurrola MD Primary Care Provider Encounter Details Date Type Department Care Team (Late st Contact Info) Description 06/06/2001 Outpatient Historical [place], Trell Pascual MD [address] [place] [phone] Social History Tobacco Use Types Packs/Day Years Used Date Smoking Tobacco: Never Assessed Comments Unknown Sex and Gender Information Value Date Recorded Sex Assigned at Not on file Legal Sex Female 3:40 AM INSIDE SALES ASSOCIATE Gender Identity Not on file Sexual Orientation Not on file documented as of this encounter Plan of Treatment Not on file documented as of this encounter Visit Diagnoses Not on filedocumented in this encounter Additional Health Concerns Infection Onset Date Last Indicated Resolved Time R/O COVID-19 01/31/2020 01/31/2020 02/02/2020 10:3 2 AM CDT documented as of this encounter Care Teams Maintenance Machine Repairer Relationship Specialty Start Date End Date Areli Gurrola MD [address] [place] [address] PCP - General Specialist 08/12/19 documented as of this encounter
--- OUTSIDE RECORDS SUMMARY | 2025-01-26 17:19 | XMS_ITS | Encounter Summary ---
Author Organization [facility] Address [address] [place] [address] Care Team Providers Care Lead Handler Name Role Phone Areli Gurrola MD Primary Care Provider Encounter Details Date Type Department Care Team (Latest Contact Info) Description 11/13/2000 Outpatient Historical [facility] [address] [place] [address] Trell [place] MD [address] [place] [phone] Insomnia, unspecified (Primary Dx); Lumbago Social History Tobacco Use Types Packs/Day Years Used Date Smoking Tobacco: Never Assessed Comments Unknown Sex and Gender Information Value Date Recorded Sex Assigned at Not on file Legal Sex Female 3:40 AM MARKETING FORECASTER Gender Identity Not on file Sexual Orientation [...] as of this encounter Care Teams Lead Handler Relationship Specialty Start Date End Date Areli Gurrola MD [address] [facility] [place] [address] PCP - General Specialist 08/12/19 documented as of this encounter
--- OUTSIDE RECORDS SUMMARY | 2025-01-26 17:19 | XMS_ITS | Encounter Summary ---
Author Organization [facility] Address [address] [place] [address] Care Team Providers Care Automobile Damage Field Appraiser Name Role Phone Areli Gurrola MD Primary Care Provider Encounter Details Date Type Department Care Team (Latest Contact Info) Description 05/09/1999 Outpatient Historical [facility] [address] [place] [address] Trell York MD [address] [place] [phone] Cervical spinal stenosis (Primary Dx); Contusion of elbow Social History Tobacco Use Types Packs/Day Years Used Date Smoking Tobacco: Never Assessed Comments Unknown Sex and Gender Information Value Date Recorded Sex Assigned at Not on file Legal Sex Female 3:40 AM INVESTIGATIVE WRITER Gender Identity Not on file Sexual [...] documented as of this encounter Care Teams Automobile Damage Field Appraiser Relationship Specialty Start Date End Date Areli Gurrola MD [address] [place] [address] PCP - General Specialist 08/12/19 documented as of this encounter
--- OUTSIDE RECORDS SUMMARY | 2025-01-26 17:19 | XMS_ITS | Encounter Summary ---
Author Organization [facility] Address [address] [place] [address] Care Team Providers Care Postmaster Name Role Phone Areli Gurrola MD Primary Care Provider Encounter Details Date Type Department Care Team (Latest Contact Info) Description 08/09/1999 Outpatient Historical [facility] [address] [place] [address] Trell York MD [address] [place] [phone] Stricture of cervix (Primary Dx) Social History Tobacco Use Types Packs/Day Years Used Date Smoking Tobacco: Never Assessed Comments Unknown Sex and Gender Information Value Date Recorded Sex Assigned at Not on file Legal Sex Female 3:40 AM TOP TILE DECORATOR Gender Identity Not on file Sexual Orientation [...] documented as of this encounter Care Teams Postmaster Relationship Specialty Start Date End Date Areli Gurrola MD [address] [facility] [place] [address] PCP - General Specialist 08/12/19 documented as of this encounter
--- OUTSIDE RECORDS SUMMARY | 2025-01-26 17:19 | XMS_ITS | Encounter Summary ---
Author Organization [facility] Address [address] [place] [address] Care Team Providers Care Materials Clerk Name Role Phone Areli Gurrola MD Primary Care Provider Encounter Details Date Type Department Care Team (Late st Contact Info) Description 05/23/1999 Outpatient Historical [facility] [address] [place] [address] Trell Hines MD [address] [place] [address] Carpal tunnel syndrome (Primary Dx) Social History Tobacco Use Types Packs/Day Years Used Date Smoking Tobacco: Never Assessed Comments Unknown Sex and Gender Information Value Date Recorded Sex Assigned at Not on file Legal Sex Female 3:40 AM HIDE BUYER Gender Identity Not on file Sexual [...] documented as of this encounter Care Teams Materials Clerk Relationship Specialty Start Date End Date Areli Gurrola MD [address] [place] [address] PCP - General Specialist 08/12/19 documented as of this encounter
--- OUTSIDE RECORDS SUMMARY | 2025-01-26 17:19 | XMS_ITS | Encounter Summary ---
Author Organization [facility] Address [address] [place] [address] Care Team Providers Care Outcomes Manager Name Role Phone Areli Gurrola MD Primary Care Provider Encounter Details Date Type Department Care Team (Latest Contact Info) Description 05/24/1999 Outpatient Historical [facility] [address] [place] [address] Trell York MD [address] [place] [phone] Edema (Primary Dx); Lumbago Social History Tobacco Use Types Packs/Day Years Used Date Smoking Tobacco: Never Assessed Comments Unknown Sex and Gender Information Value Date Recorded Sex Assigned at Not on file Legal Sex Female 3:40 AM TAKE OFF MAN Gender Identity Not on file Sexual Orientation Not on file documented as of this encounter Plan of Treatment Not on file documented as of this encounter Visit Diagnoses Diagnosis Edema- Primary Lumbago documented in this encounter Additional Health Concerns Infection Onset Date Last Indicated Resolved Time R/O COVID-19 01/31/2020 01/31/2020 02/02/2020 10:3 2 AM CDT documented as of this encounter Care Teams Outcomes Manager Relationship Specialty Start Date End Date Areli Gurrola MD [address] [facility] [place] [address] PCP - General Specialist 08/12/19 documented as of this encounter
--- OUTSIDE RECORDS SUMMARY | 2025-01-26 17:19 | XMS_ITS | Encounter Summary ---
Author Organization [facility] Address [address] [place] [address] Care Team Providers Care Senior Loan Processor Name Role Phone Areli Gurrola MD Primary Care Provider Encounter Details Date Type Department Care Team (Latest Contact Info) Description 04/25/2001 Outpatient Historical [facility] [address] [place] [address] Trell York MD [address] [place] [phone] ESOPHAGITIS, UNSPECIFIED (Primary Dx); LUMBAGO; SEBACEOUS CYST Social History Tobacco Use Types Packs/Day Years Used Date Smoking Tobacco: Never Assessed Comments Unknown Sex and Gender Information Value Date Recorded Sex Assigned at Not on file Legal Sex Female 3:40 AM NAVAL AIRCREWMAN MECHANICAL Gender Identity Not on file Sexual Orientation [...] as of this encounter Care Teams Senior Loan Processor Relationship Specialty Start Date End Date Areli Gurrola MD [address] [place] [address] PCP - General Specialist 08/12/19 documented as of this encounter
--- OUTSIDE RECORDS SUMMARY | 2025-01-26 17:19 | XMS_ITS | Encounter Summary ---
Author Organization [facility] Address [address] [place] [address] Care Team Providers Care Lung Puller Name Role Phone Areli Gurrola MD Primary Care Provider Encounter Details Date Type Department Care Team (Latest Contact Info) Description 06/08/1999 Outpatient [facility] [address] [place] [address] Trell York MD [address] [place] [phone] Carpal tunnel syndrome (Primary Dx); Sprain of neck; Obesity, unspecified Social History Tobacco Use Types Packs/Day Years Used Date Smoking Tobacco: Never Assessed Comments Unknown Sex and Gender Information Value Date Recorded Sex Assigned at Not on file Legal Sex Female 3:40 AM INSPECTING ENGINEER Gender Identity Not on file Sexual [...] documented as of this encounter Care Teams Lung Puller Relationship Specialty Start Date End Date Areli Gurrola MD [address] [facility] [place] [address] PCP - General Specialist 08/12/19 documented as of this encounter
--- OUTSIDE RECORDS SUMMARY | 2025-01-26 17:19 | XMS_ITS | Encounter Summary ---
Author Organization [facility] Address [address] [facility] Attn: [place] [address] Care Team Providers Care Plisse Machine Operator Helper Name Role Phone Areli Gurrola MD Primary Care Provider Encounter Details Date Type Department Care Team (Late st Contact Info) Description 06/11/2001 Inpatient Historical Renan Martinez MD [address] [place] [address] Social History Tobacco Use Types Packs/Day Years Used Date Smoking Tobacco: Never Assessed Comments Unknown Sex and Gender Information Value Date Recorded Sex Assigned at Not on file Legal Sex Female 3:40 AM COMBAT INFORMATION CENTER OFFICER Gender Identity Not on file Sexual Orientation Not on file documented as of this encounter Plan of Treatment Not on file documented as of this encounter Visit Diagnoses Not on filedocumented in this encounter Additional Health Concerns Infection Onset Date Last Indicated Resolved Time R/O COVID-19 01/31/2020 01/31/2020 02/02/2020 10:3 2 AM CDT documented as of this encounter Care Teams Plisse Machine Operator Helper Relationship Specialty Start Date End Date Areli Gurrola MD [address] [facility] [place] [address] PCP - General Specialist 08/12/19 documented as of this encounter
--- OUTSIDE RECORDS SUMMARY | 2025-01-26 17:19 | XMS_ITS | Encounter Summary ---
Author Organization [facility] Address [address] [facility] Attn: [place] [address] Care Team Providers Care Mattress And Boxsprings Supervisor Name Role Phone Areli Gurrola MD [...] on file Legal Sex Female 3:40 AM FISH AND GAME CLUB MANAGER Gender Identity Not on file Sexual Orientation Not on file documented as of this encounter Plan of Treatment Not on file documented as of this encounter Visit Diagnoses Not on filedocumented in this encounter Additional Health Concerns Infection Onset Date Last Indicated Resolved Time R/O COVID-19 01/31/2020 01/31/2020 02/02/2020 10:3 2 AM CDT documented as of this encounter Care Teams Mattress And Boxsprings Supervisor Relationship Specialty Start Date End Date Areli Gurrola MD [address] [place] [address] PCP - General Specialist 08/12/19 documented as of this encounter
--- OUTSIDE RECORDS SUMMARY | 2025-01-26 17:20 | XMS_ITS | Encounter Summary ---
Author Organization [facility] Address [address] [place] [address] Care Team Providers Care Hop Picker Name Role Phone Areli Gurrola MD Primary Care Provider Encounter Details Date Type Department Care Team (Latest Contact Info) Description 10/20/1999 Outpatient Historical [facility] Joseph Ramos MD [address] [place] [address] Carpal tunnel syndrome (Primary Dx) Social History Tobacco Use Types Packs/Day Years Used Date Smoking Tobacco: Never Assessed Comments Unknown Sex and Gender Information Value Date Recorded Sex Assigned at Not on file Legal Sex Female 3:40 AM EMERGENCY VETERINARY TECHNICIAN Gender Identity Not on file Sexual [...] documented as of this encounter Care Teams Hop Picker Relationship Specialty Start Date End Date Areli Gurrola MD [address] [facility] [place] [address] PCP - General Specialist 08/12/19 documented as of this encounter
--- OUTSIDE RECORDS SUMMARY | 2025-01-26 17:20 | XMS_ITS | Clinical Summary ---
Author Organization [facility] Address [address] [place] [address] Care Team Providers Care Court Monitor Name Role Phone Areli Gurrola MD [...] on file Legal 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ER Gender Identity Not on file Sexual [...] or Tdap) 03/15/2030 03/15/2020, 11/07/1997, 03/03/1997 Insurance [facility] DUAL COMPLETE MCR PPO D-SNP MEDICAID [place] Advance Directives For more information, please contact: [phone] * Full Code (Latest Code Status on File) Date Activated Date Inactivated Comments 02/17/2016 12:44 PM 02/17/2016 4:[address] Monitor Relationship Specialty Start Date End Date Areli Gurrola MD [address] [place] [phone] PCP - General Specialist 08/12/19
--- OUTSIDE RECORDS SUMMARY | 2025-01-26 17:20 | XMS_ITS | Encounter Summary ---
Author Organization [facility] Address [address] [place] [address] Care Team Providers Care Transfer Car Operator Name Role Phone Areli Gurrola MD Primary Care Provider Encounter Details Date Type Department Care Team (Latest Contact Info) Description 09/29/1999 Outpatient Historical [facility] [address] [place] [address] Trell York MD [address] [place] [phone] Obesity, unspecified (Primary Dx); Lumbago Social History Tobacco Use Types Packs/Day Years Used Date Smoking Tobacco: Never Assessed Comments Unknown Sex and Gender Information Value Date Recorded Sex Assigned at Not on file Legal Sex Female 3:40 AM EYEGLASS CUTTER Gender Identity Not on file Sexual [...] documented as of this encounter Care Teams Transfer Car Operator Relationship Specialty Start Date End Date Areli Gurrola MD [address] [facility] [place] [address] PCP - General Specialist 08/12/19 documented as of this encounter
--- OUTSIDE RECORDS SUMMARY | 2025-01-26 17:20 | XMS_ITS | Encounter Summary ---
Author Organization [facility] Address [address] Attn: [place] [address] Care Team Providers Care Retort Unloader Name Role Phone Areli Gurrola MD Primary Care Provider Encounter Details Date Type Department Care Team (Late st Contact Info) Description 11/10/1999 Outpatient Historical Joseph Ramos MD [address] [place] [address] Social History Tobacco Use Types Packs/Day Years Used Date Smoking Tobacco: Never Assessed Comments Unknown Sex and Gender Information Value Date Recorded Sex Assigned at Not on file Legal Sex Female 3:40 AM MOTOR OPERATOR Gender Identity Not on file Sexual Orientation Not on file documented as of this encounter Plan of Treatment Not on file documented as of this encounter Visit Diagnoses Not on filedocumented in this encounter Additional Health Concerns Infection Onset Date Last Indicated Resolved Time R/O COVID-19 01/31/2020 01/31/2020 02/02/2020 10:3 2 AM CDT documented as of this encounter Care Teams Retort Unloader Relationship Specialty Start Date End Date Areli Gurrola MD [address] [facility] [place] [address] PCP - General Specialist 08/12/19 documented as of this encounter
--- OUTSIDE RECORDS SUMMARY | 2025-01-26 17:20 | XMS_ITS | Encounter Summary ---
Author Organization [facility] Address [address] [place] [address] Care Team Providers Care Construction Assistant Name Role Phone Areli Gurrola MD Primary Care Provider Encounter Details Date Type Department Care Team (Latest Contact Info) Description 11/28/1999 Outpatient Historical [facility] [address] [place] [address] Trell York MD [address] [place] [phone] Lumbago (Primary Dx) Social History Tobacco Use Types Packs/Day Years Used Date Smoking Tobacco: Never Assessed Comments Unknown Sex and Gender Information Value Date Recorded Sex Assigned at Not on file Legal Sex Female 3:40 AM PROTECTION ANALYST Gender Identity Not on file Sexual Orientation Not on file documented as of this encounter Plan of Treatment Not on file documented as of this encounter Visit Diagnoses Diagnosis Lumbago- Primary documented in this encounter Additional Health Concerns Infection Onset Date Last Indicated Resolved Time R/O COVID-19 01/31/2020 01/31/2020 02/02/2020 10:3 2 AM CDT documented as of this encounter Care Teams Construction Assistant Relationship Specialty Start Date End Date Areli Gurrola MD [address] [facility] [place] [address] PCP - General Specialist 08/12/19 documented as of this encounter
--- OUTSIDE RECORDS SUMMARY | 2025-01-26 17:20 | XMS_ITS | Encounter Summary ---
Author Organization [facility] Address [address] [place] [address] Care Team Providers Care Gear Tester Name Role Phone Areli Gurrola MD Primary Care Provider Encounter Details Date Type Department Care Team (Late st Contact Info) Description 05/03/1999 Outpatient Historical [facility] Alumno, Gibran Lynn MD [address] [facility] [address] [place] [address] Cramp of limb (Primary Dx) Social History Tobacco Use Types Packs/Day Years Used Date Smoking Tobacco: Never Assessed Comments Unknown Sex and Gender Information Value Date Recorded Sex Assigned at Not on file Legal Sex Female 3:40 AM FLIGHT/TRANSPORT NURSE Gender Identity Not on file Sexual [...] documented as of this encounter Care Teams Gear Tester Relationship Specialty Start Date End Date Areli Gurrola MD [address] [place] [address] PCP - General Specialist 08/12/19 documented as of this encounter
--- OUTSIDE RECORDS SUMMARY | 2025-01-26 17:20 | XMS_ITS | Encounter Summary ---
Author Organization [facility] Address [address] [facility] Attn: [place] [address] Care Team Providers Care Vinyl Dipper Name Role Phone Arlei Gurrola MD Primary Care Provider Encounter Details Date Type Department Care Team (Late st Contact Info) Description 11/16/1999 Outpatient Historical Joseph Ramos MD [address] [place] [address] Social History Tobacco Use Types Packs/Day Years Used Date Smoking Tobacco: Never Assessed Comments Unknown Sex and Gender Information Value Date Recorded Sex Assigned at Not on file Legal Sex Female 3:40 AM FORMING ROLL OPERATOR HEAVY DUTY Gender Identity Not on file Sexual Orientation Not on file documented as of this encounter Plan of Treatment Not on file documented as of this encounter Visit Diagnoses Not on filedocumented in this encounter Additional Health Concerns Infection Onset Date Last Indicated Resolved Time R/O COVID-19 01/31/2020 01/31/2020 02/02/2020 10:3 2 AM CDT documented as of this encounter Care Teams Vinyl Dipper Relationship Specialty Start Date End Date Areli Gurrola MD [address] [place] [address] PCP - General Specialist 08/12/19 documented as of this encounter
--- OUTSIDE RECORDS SUMMARY | 2025-01-26 17:20 | XMS_ITS | Encounter Summary ---
Author Organization [facility] Address [address] [place] [address] Care Team Providers Care Battery Charger Conveyor Line Name Role Phone Areli Gurrola MD Primary Care Provider Encounter Details Date Type Department Care Team (Latest Contact Info) Description 10/27/1999 Outpatient Historical [facility] [address] [place] [address] Trell York MD [address] [place] [phone] Lumbago (Primary Dx) Social History Tobacco Use Types Packs/Day Years Used Date Smoking Tobacco: Never Assessed Comments Unknown Sex and Gender Information Value Date Recorded Sex Assigned at Not on file Legal Sex Female 3:40 AM AVIATION PROJECT MANAGER Gender Identity Not on file Sexual Orientation Not on file documented as of this encounter Plan of Treatment Not on file documented as of this encounter Visit Diagnoses Diagnosis Lumbago- Primary documented in this encounter Additional Health Concerns Infection Onset Date Last Indicated Resolved Time R/O COVID-19 01/31/2020 01/31/2020 02/02/2020 10:3 2 AM CDT documented as of this encounter Care Teams Battery Charger Conveyor Line Relationship Specialty Start Date End Date Areli Gurrola MD [address] [facility] [place] [address] PCP - General Specialist 08/12/19 documented as of this encounter
--- OUTSIDE RECORDS SUMMARY | 2025-01-26 17:21 | XMS_ITS | Encounter Summary ---
Author Organization [facility] Address [address] [place] [address] Care Team Providers Care Loom Operator Apprentice Name Role Phone Areli Gurrola MD Primary Care Provider Encounter Details Date Type Department Care Team (Late st Contact Info) Description 03/28/1999 Outpatient Historical [facility] Social History Tobacco Use Types Packs/Day Years Used Date Smoking Tobacco: Never Assessed Comments Unknown Sex and Gender Information Value Date Recorded Sex Assigned at Not on file Legal Sex Female 3:40 AM BALE PILER Gender Identity Not on file Sexual Orientation Not on file documented as of this encounter Plan of Treatment Not on file documented as of this encounter Visit Diagnoses Not on filedocumented in this encounter Additional Health Concerns Infection Onset Date Last Indicated Resolved Time R/O COVID-19 01/31/2020 01/31/2020 02/02/2020 10:3 2 AM CDT documented as of this encounter Care Teams Loom Operator Apprentice Relationship Specialty Start Date End Date Areli Gurrola MD [address] [place] [address] PCP - General Specialist 08/12/19 documented as of this encounter
--- OUTSIDE RECORDS SUMMARY | 2025-01-26 17:21 | XMS_ITS | Encounter Summary ---
Author Organization [facility] Address [address] [place] [address] Care Team Providers Care Corrugator Operator Name Role Phone Areli Gurrola MD Primary Care Provider Encounter Details Date Type Department Care Team (Latest Contact Info) Description 09/08/1999 Outpatient Historical [facility] [address] [place] [address] Trell York MD [address] [place] [phone] Lumbago (Primary Dx); Obesity, unspecified Social History Tobacco Use Types Packs/Day Years Used Date Smoking Tobacco: Never Assessed Comments Unknown Sex and Gender Information Value Date Recorded Sex Assigned at Not on file Legal Sex Female 3:40 AM WARPER CREELER Gender Identity Not on file Sexual [...] documented as of this encounter Care Teams Corrugator Operator Relationship Specialty Start Date End Date Areli Gurrola MD [address] [facility] [place] [address] PCP - General Specialist 08/12/19 documented as of this encounter
--- OUTSIDE RECORDS SUMMARY | 2025-01-26 17:21 | XMS_ITS | Encounter Summary ---
Author Organization [facility] Address [address] [facility] Attn: [place] [address] Care Team Providers Care Truck Driver Salesperson Name Role Phone Areli Gurrola MD Primary Care Provider Encounter Details Date Type Department Care Team (Late st Contact Info) Description 08/24/1999 Outpatient Historical Joseph Ramos MD [address] [place] [address] Social History Tobacco Use Types Packs/Day Years Used Date Smoking Tobacco: Never Assessed Comments Unknown Sex and Gender Information Value Date Recorded Sex Assigned at Not on file Legal Sex Female 3:40 AM SUPERVISOR INSPECTION DEPARTMENT Gender Identity Not on file Sexual Orientation Not on file documented as of this encounter Plan of Treatment Not on file documented as of this encounter Visit Diagnoses Not on filedocumented in this encounter Additional Health Concerns Infection Onset Date Last Indicated Resolved Time R/O COVID-19 01/31/2020 01/31/2020 02/02/2020 10:3 2 AM CDT documented as of this encounter Care Teams Truck Driver Salesperson Relationship Specialty Start Date End Date Areli Gurrola MD [address] [facility] [place] [address] PCP - General Specialist 08/12/19 documented as of this encounter
--- OUTSIDE RECORDS SUMMARY | 2025-01-26 17:21 | XMS_ITS | Encounter Summary ---
Author Organization [facility] Address [address] [place] [address] Care Team Providers Care Jammer Operator Name Role Phone Areli Gurrola MD Primary Care Provider Encounter Details Date Type Department Care Team (Late st Contact Info) Description 04/07/1999 Outpatient Historical [facility] Social History Tobacco Use Types Packs/Day Years Used Date Smoking Tobacco: Never Assessed Comments Unknown Sex and Gender Information Value Date Recorded Sex Assigned at Not on file Legal Sex Female 3:40 AM LINSEED OIL PRESS TENDER Gender Identity Not on file Sexual Orientation Not on file documented as of this encounter Plan of Treatment Not on file documented as of this encounter Visit Diagnoses Not on filedocumented in this encounter Additional Health Concerns Infection Onset Date Last Indicated Resolved Time R/O COVID-19 01/31/2020 01/31/2020 02/02/2020 10:3 2 AM CDT documented as of this encounter Care Teams Jammer Operator Relationship Specialty Start Date End Date Areli Gurrola MD [address] [place] [address] PCP - General Specialist 08/12/19 documented as of this encounter
--- OUTSIDE RECORDS SUMMARY | 2025-01-26 17:21 | XMS_ITS | Encounter Summary ---
Author Organization [facility] Address [address] [place] [address] Care Team Providers Care Wood Chopper Name Role Phone Areli Gurrola MD Primary Care Provider Encounter Details Date Type Department Care Team (Latest Contact Info) Description 03/23/1999 Outpatient [facility] [address] [place] [address] Alumno, Gibran Lynn MD [address] [place] [address] Unspecified viral infection, in conditions classified elsewhere and of unspecified site (Primary Dx); Sprain and strain of other specified sites of shoulder and upper arm; Tobacco use disorder Social History Tobacco Use Types Packs/Day Years Used Date Smoking Tobacco: Never Assessed Comments Unknown Sex and Gender Information Value Date Recorded Sex Assigned at Not on file Legal Sex Female 3:40 AM 2ND GRADE TEACHER Gender Identity Not on file Sexual [...] as of this encounter Care Teams Wood Chopper Relationship Specialty Start Date End Date Areli Gurrola MD [address] [place] [address] PCP - General Specialist 08/12/19 documented as of this encounter
--- OUTSIDE RECORDS SUMMARY | 2025-01-26 17:21 | XMS_ITS | Encounter Summary ---
Author Organization [facility] Address [address] [place] [address] Care Team Providers Care Ibm Mainframe Systems Programmer Name Role Phone Areli Gurrola MD Primary Care Provider Encounter Details Date Type Department Care Team (Late st Contact Info) Description 04/14/1999 Outpatient Historical [facility] Social History Tobacco Use Types Packs/Day Years Used Date Smoking Tobacco: Never Assessed Comments Unknown Sex and Gender Information Value Date Recorded Sex Assigned at Not on file Legal Sex Female 3:40 AM AIR CONDITIONING MECHANIC Gender Identity Not on file Sexual Orientation Not on file documented as of this encounter Plan of Treatment Not on file documented as of this encounter Visit Diagnoses Not on filedocumented in this encounter Additional Health Concerns Infection Onset Date Last Indicated Resolved Time R/O COVID-19 01/31/2020 01/31/2020 02/02/2020 10:3 2 AM CDT documented as of this encounter Care Teams Ibm Mainframe Systems Programmer Relationship Specialty Start Date End Date Areli Gurrola MD [address] [place] [address] PCP - General Specialist 08/12/19 documented as of this encounter
--- OUTSIDE RECORDS SUMMARY | 2025-01-26 17:21 | XMS_ITS | Encounter Summary ---
Author Organization [facility] Address [address] [place] [address] Care Team Providers Care Custom Grinder Name Role Phone Areli Gurrola MD Primary Care Provider Encounter Details Date Type Department Care Team (Late st Contact Info) Description 03/25/1999 Outpatient Historical [facility] Social History Tobacco Use Types Packs/Day Years Used Date Smoking Tobacco: Never Assessed Comments Unknown Sex and Gender Information Value Date Recorded Sex Assigned at Not on file Legal Sex Female 3:40 AM GERIATRIC ASSISTANT Gender Identity Not on file Sexual Orientation Not on file documented as of this encounter Plan of Treatment Not on file documented as of this encounter Visit Diagnoses Not on filedocumented in this encounter Additional Health Concerns Infection Onset Date Last Indicated Resolved Time R/O COVID-19 01/31/2020 01/31/2020 02/02/2020 10:3 2 AM CDT documented as of this encounter Care Teams Custom Grinder Relationship Specialty Start Date End Date Areli Gurrola MD [address] [place] [address] PCP - General Specialist 08/12/19 documented as of this encounter
--- OUTSIDE RECORDS SUMMARY | 2025-01-26 17:21 | XMS_ITS | Encounter Summary ---
Author Organization [facility] Address [address] [place] [address] Care Team Providers Care Padder Cushion Name Role Phone Areli Gurrola MD Primary Care Provider Encounter Details Date Type Department Care Team (Latest Contact Info) Description 05/03/1999 Outpatient Historical [facility] [address] [place] [address] Alumno, Gibran Lynn MD [address] [place] [address] Cramp of limb (Primary Dx); Contracture of hand joint Social History Tobacco Use Types Packs/Day Years Used Date Smoking Tobacco: Never Assessed Comments Unknown Sex and Gender Information Value Date Recorded Sex Assigned at Not on file Legal Sex Female 3:40 AM RN INTEGRATED Gender Identity Not on file Sexual Orientation [...] documented as of this encounter Care Teams Padder Cushion Relationship Specialty Start Date End Date Areli Gurrola MD [address] [place] [address] PCP - General Specialist 08/12/19 documented as of this encounter
--- OUTSIDE RECORDS SUMMARY | 2025-01-26 17:21 | XMS_ITS | Encounter Summary ---
Author Organization [facility] Address [address] [place] [address] Care Team Providers Care Rn Eligibility Name Role Phone Areli Gurrola MD Primary Care Provider Encounter Details Date Type Department Care Team (Late st Contact Info) Description 03/16/1999 Outpatient Historical [facility] Social History Tobacco Use Types Packs/Day Years Used Date Smoking Tobacco: Never Assessed Comments Unknown Sex and Gender Information Value Date Recorded Sex Assigned at Not on file Legal Sex Female 3:40 AM OPERATOR ELECTRONIC WARFARE Gender Identity Not on file Sexual Orientation Not on file documented as of this encounter Plan of Treatment Not on file documented as of this encounter Visit Diagnoses Not on filedocumented in this encounter Additional Health Concerns Infection Onset Date Last Indicated Resolved Time R/O COVID-19 01/31/2020 01/31/2020 02/02/2020 10:3 2 AM CDT documented as of this encounter Care Teams Rn Eligibility Relationship Specialty Start Date End Date Areli Gurrola MD [address] [place] [address] PCP - General Specialist 08/12/19 documented as of this encounter
--- OUTSIDE RECORDS SUMMARY | 2025-01-26 17:21 | XMS_ITS | Encounter Summary ---
Author Organization [facility] Address [address] [place] [address] Care Team Providers Care Nursing Home Social Worker Name Role Phone Areli Gurrola MD Primary Care Provider Encounter Details Date Type Department Care Team (Late st Contact Info) Description 03/18/1999 Outpatient Historical [facility] Social History Tobacco Use Types Packs/Day Years Used Date Smoking Tobacco: Never Assessed Comments Unknown Sex and Gender Information Value Date Recorded Sex Assigned at Not on file Legal Sex Female 3:40 AM ELECTRICAL ENGINEERING TECHNOLOGIST Gender Identity Not on file Sexual Orientation Not on file documented as of this encounter Plan of Treatment Not on file documented as of this encounter Visit Diagnoses Not on filedocumented in this encounter Additional Health Concerns Infection Onset Date Last Indicated Resolved Time R/O COVID-19 01/31/2020 01/31/2020 02/02/2020 10:3 2 AM CDT documented as of this encounter Care Teams Nursing Home Social Worker Relationship Specialty Start Date End Date Areli Gurrola MD [address] [place] [address] PCP - General Specialist 08/12/19 documented as of this encounter
--- OUTSIDE RECORDS SUMMARY | 2025-01-26 17:21 | XMS_ITS | Encounter Summary ---
Author Organization [facility] Address [address] [place] [address] Care Team Providers Care Vegetable Washer Name Role Phone Areli Gurrola MD Primary Care Provider Encounter Details Date Type Department Care Team (Latest Contact Info) Description 09/01/1999 Outpatient Historical [facility] Joseph Ramos MD [address] [place] [address] Pain in joint, hand (Primary Dx); Follow-up examination following surgery Social History Tobacco Use Types Packs/Day Years Used Date Smoking Tobacco: Never Assessed Comments Unknown Sex and Gender Information Value Date Recorded Sex Assigned at Not on file Legal Sex Female 3:40 AM SUPERVISOR DOPING Gender Identity Not on file Sexual Orientation [...] as of this encounter Care Teams Vegetable Washer Relationship Specialty Start Date End Date Areli Gurrola MD [address] [place] [address] PCP - General Specialist 08/12/19 documented as of this encounter
--- OUTSIDE RECORDS SUMMARY | 2025-01-26 17:21 | XMS_ITS | Encounter Summary ---
Author Organization [facility] Address [address] [place] [address] Care Team Providers Care Cable Tool Driller Name Role Phone Areli Gurrola MD Primary Care Provider Encounter Details Date Type Department Care Team (Late st Contact Info) Description 04/14/1999 Outpatient Historical [facility] Social History Tobacco Use Types Packs/Day Years Used Date Smoking Tobacco: Never Assessed Comments Unknown Sex and Gender Information Value Date Recorded Sex Assigned at Not on file Legal Sex Female 3:40 AM BLOW PIT HELPER Gender Identity Not on file Sexual Orientation Not on file documented as of this encounter Plan of Treatment Not on file documented as of this encounter Visit Diagnoses Not on filedocumented in this encounter Additional Health Concerns Infection Onset Date Last Indicated Resolved Time R/O COVID-19 01/31/2020 01/31/2020 02/02/2020 10:3 2 AM CDT documented as of this encounter Care Teams Cable Tool Driller Relationship Specialty Start Date End Date Areli Gurrola MD [address] [place] [address] PCP - General Specialist 08/12/19 documented as of this encounter
--- OUTSIDE RECORDS SUMMARY | 2025-01-26 17:21 | XMS_ITS | Encounter Summary ---
Author Organization [facility] [facility] Address [address] [place] [address] Care Team Providers Care Simplex Printer Installer Name Role Phone Areli Gurrola MD Primary Care Provider Encounter Details Date Type Department Care Team (Late st Contact Info) Description 04/11/1999 Outpatient Historical HIS [facility] [...] documented as of this encounter Care Teams Simplex Printer Installer Relationship Specialty Start Date End Date Areli Gurrola MD [address] [place] [address] PCP - General Specialist 08/12/19 documented as of this encounter
--- OUTSIDE RECORDS SUMMARY | 2025-01-26 17:21 | XMS_ITS | Encounter Summary ---
Author Organization [facility] Address [address] [place] [address] Care Team Providers Care Supervisor Fabrication Name Role Phone Areli Gurrola MD Primary Care Provider Encounter Details Date Type Department Care Team (Late st Contact Info) Description 04/11/1999 Outpatient Historical HIS [facility] Social History Tobacco Use Types Packs/Day Years Used Date Smoking Tobacco: Never Assessed Comments Unknown Sex and Gender Information Value Date Recorded Sex Assigned at Not on file Legal Sex Female 3:40 AM AMMUNITION ASSEMBLY LABORER Gender Identity Not on file Sexual Orientation Not on file documented as of this encounter Plan of Treatment Not on file documented as of this encounter Visit Diagnoses Not on filedocumented in this encounter Additional Health Concerns Infection Onset Date Last Indicated Resolved Time R/O COVID-19 01/31/2020 01/31/2020 02/02/2020 10:3 2 AM CDT documented as of this encounter Care Teams Supervisor Fabrication Relationship Specialty Start Date End Date Areli Gurrola MD [address] [place] [address] PCP - General Specialist 08/12/19 documented as of this encounter
--- OUTSIDE RECORDS SUMMARY | 2025-01-26 17:21 | XMS_ITS | Encounter Summary ---
Author Organization [facility] Address [address] [place] [address] Care Team Providers Care Clay Miller Name Role Phone Areli Gurrola MD Primary Care Provider Encounter Details Date Type Department Care Team (Late st Contact Info) Description 03/30/1999 Outpatient Historical HIS [facility] Social History Tobacco Use Types Packs/Day Years Used Date Smoking Tobacco: Never Assessed Comments Unknown Sex and Gender Information Value Date Recorded Sex Assigned at Not on file Legal Sex Female 3:40 AM ENVIRONMENTAL INTERN Gender Identity Not on file Sexual Orientation Not on file documented as of this encounter Plan of Treatment Not on file documented as of this encounter Visit Diagnoses Not on filedocumented in this encounter Additional Health Concerns Infection Onset Date Last Indicated Resolved Time R/O COVID-19 01/31/2020 01/31/2020 02/02/2020 10:3 2 AM CDT documented as of this encounter Care Teams Clay Miller Relationship Specialty Start Date End Date Areli Gurrola MD [address] [place] [address] PCP - General Specialist 08/12/19 documented as of this encounter
--- OUTSIDE RECORDS SUMMARY | 2025-01-26 17:21 | XMS_ITS | Encounter Summary ---
Author Organization [facility] Address [address] [place] [address] Care Team Providers Care Cloth Weaver Name Role Phone Areli Gurrola MD Primary Care Provider Encounter Details Date Type Department Care Team (Late st Contact Info) Description 04/07/1999 Outpatient Historical HIS [facility] Social History Tobacco Use Types Packs/Day Years Used Date Smoking Tobacco: Never Assessed Comments Unknown Sex and Gender Information Value Date Recorded Sex Assigned at Not on file Legal Sex Female 3:40 AM CONDITIONER TUMBLER Gender Identity Not on file Sexual Orientation Not on file documented as of this encounter Plan of Treatment Not on file documented as of this encounter Visit Diagnoses Not on filedocumented in this encounter Additional Health Concerns Infection Onset Date Last Indicated Resolved Time R/O COVID-19 01/31/2020 01/31/2020 02/02/2020 10:3 2 AM CDT documented as of this encounter Care Teams Cloth Weaver Relationship Specialty Start Date End Date Areli Gurrola MD [address] [place] [address] PCP - General Specialist 08/12/19 documented as of this encounter
--- OUTSIDE RECORDS SUMMARY | 2025-01-26 17:21 | XMS_ITS | Encounter Summary ---
Author Organization [facility] Address [address] [facility] [address] [facility] Attn: [place] [address] Care Team Providers Care Shuttle Van Driver Name Role Phone Areli Gurrola MD [...] on file Legal Sex Female 3:40 AM LAW OFFICE ASSISTANT Gender Identity Not on file Sexual Orientation Not on file documented as of this encounter Plan of Treatment Not on file documented as of this encounter Visit Diagnoses Not on filedocumented in this encounter Additional Health Concerns Infection Onset Date Last Indicated Resolved Time R/O COVID-19 01/31/2020 01/31/2020 02/02/2020 10:3 2 AM CDT documented as of this encounter Care Teams Shuttle Van Driver Relationship Specialty Start Date End Date Areli Gurrola MD [address] [facility] [place] [address] PCP - General Specialist 08/12/19 documented as of this encounter
--- OUTSIDE RECORDS SUMMARY | 2025-01-26 17:21 | XMS_ITS | Encounter Summary ---
Author Organization [facility] Address [address] [facility] Attn: [place] [address] Care Team Providers Care Edi Consultant Name Role Phone Areli Gurrola MD Primary Care Provider Encounter Details Date Type Department Care Team (Late st Contact Info) Description 08/19/1999 Outpatient Historical Joseph Ramos MD [address] [place] [address] Social History Tobacco Use Types Packs/Day Years Used Date Smoking Tobacco: Never Assessed Comments Unknown Sex and Gender Information Value Date Recorded Sex Assigned at Not on file Legal Sex Female 3:40 AM LOGISTICS TEAM LEAD Gender Identity Not on file Sexual Orientation Not on file documented as of this encounter Plan of Treatment Not on file documented as of this encounter Visit Diagnoses Not on filedocumented in this encounter Additional Health Concerns Infection Onset Date Last Indicated Resolved Time R/O COVID-19 01/31/2020 01/31/2020 02/02/2020 10:3 2 AM CDT documented as of this encounter Care Teams Edi Consultant Relationship Specialty Start Date End Date Areli Gurrola MD [address] [facility] [place] [address] PCP - General Specialist 08/12/19 documented as of this encounter
--- OUTSIDE RECORDS SUMMARY | 2025-01-26 17:21 | XMS_ITS | Encounter Summary ---
Author Organization [facility] Address [address] [place] [address] Care Team Providers Care Final Inspector Paper Name Role Phone Areli Gurrola MD Primary Care Provider Encounter Details Date Type Department Care Team (Late st Contact Info) Description 03/25/1999 Outpatient Historical HIS [facility] Social History Tobacco Use Types Packs/Day Years Used Date Smoking Tobacco: Never Assessed Comments Unknown Sex and Gender Information Value Date Recorded Sex Assigned at Not on file Legal Sex Female 3:40 AM ENVIRONMENTAL EDUCATION SPECIALIST Gender Identity Not on file Sexual Orientation Not on file documented as of this encounter Plan of Treatment Not on file documented as of this encounter Visit Diagnoses Not on filedocumented in this encounter Additional Health Concerns Infection Onset Date Last Indicated Resolved Time R/O COVID-19 01/31/2020 01/31/2020 02/02/2020 10:3 2 AM CDT documented as of this encounter Care Teams Final Inspector Paper Relationship Specialty Start Date End Date Areli Gurrola MD [address] [place] [address] PCP - General Specialist 08/12/19 documented as of this encounter
--- OUTSIDE RECORDS SUMMARY | 2025-01-26 17:21 | XMS_ITS | Encounter Summary ---
Author Organization [facility] Address [address] [place] [address] Care Team Providers Care Satellite Manager Name Role Phone Areli Gurrola MD Primary Care Provider Encounter Details Date Type Department Care Team (Latest Contact Info) Description 04/11/2006 Outpatient Historical [facility] [address] [place] [address] Trell York MD [address] [place] [phone] Unspecified Essential Hypertension (Primary Dx); Dysthymic Disorder; Insomnia, Unspecified; Mononeuritis of Unspecified Site Social History Tobacco Use Types Packs/Day Years Used Date Smoking Tobacco: Never Assessed Comments Unknown Sex and Gender Information Value Date Recorded Sex Assigned at Not on file Legal Sex Female 3:40 AM CALL OR CONTACT CENTRE COACH Gender Identity Not on file Sexual [...] as of this encounter Care Teams Satellite Manager Relationship Specialty Start Date End Date Areli Gurrola MD [address] [place] [address] PCP - General Specialist 08/12/19 documented as of this encounter
--- OUTSIDE RECORDS SUMMARY | 2025-01-26 17:22 | XMS_ITS | Encounter Summary ---
Author Organization [facility] Address [address] [place] [address] Care Team Providers Care Retail Wireless Sales Representative Name Role Phone Areli Gurrola MD Primary Care Provider Encounter Details Date Type Department Care Team (Latest Contact Info) Description 09/09/2003 Outpatient Historical [facility] [address] [place] [address] Trell York MD [address] [place] [phone] CERVICALGIA (Primary Dx) Social History Tobacco Use Types Packs/Day Years Used Date Smoking Tobacco: Never Assessed Comments Unknown Sex and Gender Information Value Date Recorded Sex Assigned at Not on file Legal Sex Female 3:40 AM DANCE TEACHER Gender Identity Not on file Sexual Orientation Not on file documented as of this encounter Plan of Treatment Not on file documented as of this encounter Visit Diagnoses Diagnosis Cervicalgia- Primary documented in this encounter Additional Health Concerns Infection Onset Date Last Indicated Resolved Time R/O COVID-19 01/31/2020 01/31/2020 02/02/2020 10:3 2 AM CDT documented as of this encounter Care Teams Retail Wireless Sales Representative Relationship Specialty Start Date End Date Areli Gurrola MD [address] [facility] [place] [address] PCP - General Specialist 08/12/19 documented as of this encounter
--- OUTSIDE RECORDS SUMMARY | 2025-01-26 17:22 | XMS_ITS | Encounter Summary ---
Author Organization [facility] Address [address] [place] [address] Care Team Providers Care Mail Teller Name Role Phone Areli Gurrola MD Primary Care Provider Encounter Details Date Type Department Care Team (Latest Contact Info) Description 10/11/2005 Outpatient Historical [facility] [address] [place] [address] Trell York MD [address] [place] [phone] Dysthymic Disorder (Primary Dx); Lumbago Social History Tobacco Use Types Packs/Day Years Used Date Smoking Tobacco: Never Assessed Comments Unknown Sex and Gender Information Value Date Recorded Sex Assigned at Not on file Legal Sex Female 3:40 AM ASSISTANT FIELD HOCKEY COACH Gender Identity Not on [...] as of this encounter Care Teams Mail Teller Relationship Specialty Start Date End Date Areli Gurrola MD [address] [facility] [address] [place] [address] PCP - General Specialist 08/12/19 documented as of this encounter
--- OUTSIDE RECORDS SUMMARY | 2025-01-26 17:22 | XMS_ITS | Encounter Summary ---
Author Organization [facility] Address [address] [place] [address] Care Team Providers Care Manager Wholesale Name Role Phone Areli Gurrola MD Primary Care Provider Encounter Details Date Type Department Care Team (Late st Contact Info) Description 04/05/1999 Outpatient Historical [facility] Social History Tobacco Use Types Packs/Day Years Used Date Smoking Tobacco: Never Assessed Comments Unknown Sex and Gender Information Value Date Recorded Sex Assigned at Not on file Legal Sex Female 3:40 AM SOLE CUTTER Gender Identity Not on file Sexual Orientation Not on file documented as of this encounter Plan of Treatment Not on file documented as of this encounter Visit Diagnoses Not on filedocumented in this encounter Additional Health Concerns Infection Onset Date Last Indicated Resolved Time R/O COVID-19 01/31/2020 01/31/2020 02/02/2020 10:3 2 AM CDT documented as of this encounter Care Teams Manager Wholesale Relationship Specialty Start Date End Date Areli Gurrola MD [address] [place] [address] PCP - General Specialist 08/12/19 documented as of this encounter
--- OUTSIDE RECORDS SUMMARY | 2025-01-26 17:22 | XMS_ITS | Encounter Summary ---
Author Organization [facility] Address [address] [place] [address] Care Team Providers Care Gold Tooler Name Role Phone Areli Gurrola MD Primary Care Provider Encounter Details Date Type Department Care Team (Latest Contact Info) Description 06/26/2003 Outpatient Historical [facility] [address] [place] [address] Jim Matos [place] [address] [address] [place] [address] PRECORDIAL PAIN (Primary Dx) Social History Tobacco Use Types Packs/Day Years Used Date Smoking Tobacco: Never Assessed Comments Unknown Sex and Gender Information Value Date Recorded Sex Assigned at Not on file Legal Sex Female 3:40 AM PUBLIC HEALTH DOCTOR Gender Identity Not on file Sexual Orientation Not on file documented as of this encounter Plan of Treatment Not on file documented as of this encounter Visit Diagnoses Diagnosis Precordial pain- Primary documented in this encounter Additional Health Concerns Infection Onset Date Last Indicated Resolved Time R/O COVID-19 01/31/2020 01/31/2020 02/02/2020 10:3 2 AM CDT documented as of this encounter Care Teams Gold Tooler Relationship Specialty Start Date End Date Areli Gurrola MD [address] [facility] [place] [address] PCP - General Specialist 08/12/19 documented as of this encounter
--- OUTSIDE RECORDS SUMMARY | 2025-01-26 17:22 | XMS_ITS | Patient Health Record ---
Author Organization [facility] Address [address] [place] [address] Care Team Providers Care Urogynaecologist Name Role Phone Joseph Lewis MD Primary Care Provider Zane Joiner Unavailable [phone] ELROY BOOTHE Unavailable Unavailable Migration, Provider Unavailable Unavailable Reason For Referral Reason eval and treat Diagnosis 1 Radiculopathy, lumba r region (M54.16) Referring Provider First Name Aida Referring Provider Last Name Carlton Referring Provider Speciality Physician Chartered Financial Analyst Referred Organization [facility] Referred Provider Tam Fairchild Referred Address [address],[place],[address], Referred Provider Specialty Intervention al Pain Medicine [...] drug interaction check* Fluticasone Furoate 27.5mcg/1spray Nasal Sandy Use 2 spray(s) in each nostril daily 05/28/2008 Active Immunizations Vaccine Route Administration Date Status Comme nts Influenza (whole), CPT 79845 Inactive Unknown 10/15/2018 Administered Social History Social [...] Severe recurrent major depression without psychotic features (05708413) Major depressive disorder, 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.2) Active confirmed Problem Severe recurrent major depression with psychotic features (31098859) Major depressive disorder, recurrent, 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) Active confirmed Problem Adjustment disorder with mixed disturbance of emotions AND conduct (39614085) Adjustment disorder with mixed disturbance of emotions and conduct (F43.25) Active confirmed Problem Borderline personality disorder (69584934) Borderline personality disorder (F60.3) Active confirmed Problem Lumbar radiculopathy (964775528) Radiculopathy, lumbar region (M54.16) Active confirmed Problem History of psychiatric disorder (146620678) Personal history of other mental and behavioral disorders (Z86.59) Active confirmed Problem Alcohol abuse (99917040) Alcohol abuse (F10.10) Active confirmed Problem Major depression, single episode (25232784) Depression, major (F32.9) Active confirmed Problem Fibromyalgia (352390671) Fibromyalgia (729.1) 05/28/19 09 Problem resolved confirmed Luke-985 911- Problem 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 confirmed Problem Low back pain (421830679) Low back pain (724.2) 05/28/19 09 Active confirmed Luke-985 911- Problem Chronic pain (99681694) Chronic pain (G89.29) Active confirmed Problem Polysubstance abuse (264513103) Polysubstance abuse (F19.10) Active confirmed Problem Cannabis abuse (48413066) Cannabis abuse (F12.10) Active confirmed Encounters Encounter Location Date Provider Diagnosis Migrated_Facility 0 0 02/02/2024 Provider Migration Migrated_Facility 0 0 02/03/2024 Provider Migration Plan Of Treatment No Information Insurance Providers Payer Name Payer Address Payer Phone Subscriber Number Group Number Insured Name Patient Relationship to Insured Coverage Start Date Coverage End Date [facility] Commercial [address] [address] [place] [address] [id number] Kay Gamboa Self - patient is the insured [place] Medicaid [address] [place] [address] [id number] Kay Gamboa Self - patient is the insured Medical (General) History Surgical History Surgery Date(Month/Year) Appendectomy Biopsy of Bone Marrow Carpal tunnel surgery Gallbladder surgery Hysterectomy Laminectomy Tonsillectomy
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
--- OUTSIDE RECORDS SUMMARY | 2025-01-26 17:22 | XMS_ITS | Encounter Summary ---
Author Organization [facility] Address [address] [place] [address] Care Team Providers Care Blintze Roller Name Role Phone Areli Gurrola MD Primary Care Provider Encounter Details Date Type Department Care Team (Late st Contact Info) Description 03/30/1999 Outpatient Historical HIS [facility] Social History Tobacco Use Types Packs/Day Years Used Date Smoking Tobacco: Never Assessed Comments Unknown Sex and Gender Information Value Date Recorded Sex Assigned at Not on file Legal Sex Female 3:40 AM GARDEN WORKER Gender Identity Not on file Sexual Orientation Not on file documented as of this encounter Plan of Treatment Not on file documented as of this encounter Visit Diagnoses Not on filedocumented in this encounter Additional Health Concerns Infection Onset Date Last Indicated Resolved Time R/O COVID-19 01/31/2020 01/31/2020 02/02/2020 10:3 2 AM CDT documented as of this encounter Care Teams Blintze Roller Relationship Specialty Start Date End Date Areli Gurrola MD [address] [place] [address] PCP - General Specialist 08/12/19 documented as of this encounter
--- OUTSIDE RECORDS SUMMARY | 2025-01-26 17:22 | XMS_ITS | Encounter Summary ---
Author Organization [facility] Address [address] [place] [address] Care Team Providers Care Numerical Control Machine Operator Name Role Phone Areli Gurrola MD Primary Care Provider Encounter Details Date Type Department Care Team (Latest Contact Info) Description 09/14/2004 [facility]patient [facility] [address] [place] [address] Trell York MD [address] [place] [phone] DYSTHYMIC DISORDER (Primary Dx); CERVICALGIA; LUMBAGO Social History Tobacco Use Types Packs/Day Years Used Date Smoking Tobacco: Never Assessed Comments Unknown Sex and Gender Information Value Date Recorded Sex Assigned at Not on file Legal Sex Female 3:40 AM PHLEBOTOMY TECHNOLOGIST Gender Identity Not on file Sexual [...] documented as of this encounter Care Teams Numerical Control Machine Operator Relationship Specialty Start Date End Date Areli Gurrola MD [address] [facility] [place] [address] PCP - General Specialist 08/12/19 documented as of this encounter
--- OUTSIDE RECORDS SUMMARY | 2025-01-26 17:22 | XMS_ITS | Encounter Summary ---
Author Organization [facility] Address [address] [place] [address] Care Team Providers Care Adobe Layer Helper Name Role Phone Areli Gurrola MD Primary Care Provider Encounter Details Date Type Department Care Team (Late st Contact Info) Description 05/14/2003 Outpatient Historical [facility] [address] [place] [address] Roman Law, DO [address] [place] [phone] ACUTE SINUSITIS NOS (Primary Dx) Social History Tobacco Use Types Packs/Day Years Used Date Smoking Tobacco: Never Assessed Comments Unknown Sex and Gender Information Value Date Recorded Sex Assigned at Not on file Legal Sex Female 3:40 AM PRODUCT SAFETY SPECIALIST Gender Identity Not on file Sexual [...] documented as of this encounter Care Teams Adobe Layer Helper Relationship Specialty Start Date End Date Areli Gurrola MD [address] [place] [address] PCP - General Specialist 08/12/19 documented as of this encounter
--- OUTSIDE RECORDS SUMMARY | 2025-01-26 17:22 | XMS_ITS | Encounter Summary ---
Author Organization [facility] Address [address] [place] [address] Care Team Providers Care Rn Home Care Name Role Phone Areli Gurrola MD Primary Care Provider Encounter Details Date Type Department Care Team (Late st Contact Info) Description 06/24/2003 Outpatient Historical [facility] [place] [address] [place] [address] Shayy Landry MD [address] [address] Social History Tobacco Use Types Packs/Day Years Used Date Smoking Tobacco: Never Assessed Comments Unknown Sex and Gender Information Value Date Recorded Sex Assigned at Not on file Legal Sex Female 3:40 AM CERTIFIED MARINE MECHANIC Gender Identity Not on file Sexual Orientation Not on file documented as of this encounter Plan of Treatment Not on file documented as of this encounter Visit Diagnoses Not on filedocumented in this encounter Additional Health Concerns Infection Onset Date Last Indicated Resolved Time R/O COVID-19 01/31/2020 01/31/2020 02/02/2020 10:3 2 AM CDT documented as of this encounter Care Teams Rn Home Care Relationship Specialty Start Date End Date Areli Gurrola MD [address] [facility] [place] [address] PCP - General Specialist 08/12/19 documented as of this encounter
--- OUTSIDE RECORDS SUMMARY | 2025-01-26 17:22 | XMS_ITS | Encounter Summary ---
Author Organization [facility] Address [address] [place] [address] Care Team Providers Care Senior Packaging Engineer Name Role Phone Areli Gurrola MD Primary Care Provider Encounter Details Date Type Department Care Team (Latest Contact Info) Description 06/22/2003 Outpatient Historical [facility] [address] [place] [address] Trell York MD [address] [place] [phone] CHEST PAIN NOS (Primary Dx); ABN INVOLUN MOVEMENT NEC; CERVICALGIA Social History Tobacco Use Types Packs/Day Years Used Date Smoking Tobacco: Never Assessed Comments Unknown Sex and Gender Information Value Date Recorded Sex Assigned at Not on file Legal Sex Female 3:40 AM ENVIRONMENTAL SCIENCE PROFESSOR Gender Identity Not on file Sexual [...] as of this encounter Care Teams Senior Packaging Engineer Relationship Specialty Start Date End Date Areli Gurrola MD [address] [facility] [place] [address] PCP - General Specialist 08/12/19 documented as of this encounter
--- OUTSIDE RECORDS SUMMARY | 2025-01-26 17:22 | XMS_ITS | Encounter Summary ---
Author Organization [facility] Address [address] [place] [address] Care Team Providers Care Head Custodian Name Role Phone Areli Gurrola MD Primary Care Provider Encounter Details Date Type Department Care Team (Latest Contact Info) Description 02/20/2005 Outpatient Historical [facility] [address] [place] [address] Trell York MD [address] [place] [phone] LUMBAGO (Primary Dx); DYSTHYMIC DISORDER; ANXIETY STATE NOS; CERVICALGIA Social History Tobacco Use Types Packs/Day Years Used Date Smoking Tobacco: Never Assessed Comments Unknown Sex and Gender Information Value Date Recorded Sex Assigned at Not on file Legal Sex Female 3:40 AM STRATEGIC SOURCING SPECIALIST Gender Identity Not on file Sexual [...] as of this encounter Care Teams Head Custodian Relationship Specialty Start Date End Date Areli Gurrola MD [address] [place] [address] PCP - General Specialist 08/12/19 documented as of this encounter
--- OUTSIDE RECORDS SUMMARY | 2025-01-26 17:22 | XMS_ITS | Encounter Summary ---
Author Organization [facility] Address [address] [place] [address] Care Team Providers Care Milk Powder Grinder Name Role Phone Areli Gurrola MD Primary Care Provider Encounter Details Date Type Department Care Team (Latest Contact Info) Description 09/12/2005 Outpatient Historical [facility] [address] [place] [address] Trell Maria Jr., MD [address] [place] [address] Anxiety State, Unspecified (Primary Dx) Social History Tobacco Use Types Packs/Day Years Used Date Smoking Tobacco: Never Assessed Comments Unknown Sex and Gender Information Value Date Recorded Sex Assigned at Not on file Legal Sex Female 3:40 AM CASE FINISHING MACHINE ADJUSTER Gender Identity Not on file [...] documented as of this encounter Care Teams Milk Powder Grinder Relationship Specialty Start Date End Date Areli Gurrola MD [address] [facility] [place] [phone] PCP - General Specialist 08/12/19 documented as of this encounter
--- OUTSIDE RECORDS SUMMARY | 2025-01-26 17:22 | XMS_ITS | Encounter Summary ---
Author Organization [facility] Address [address] [place] [address] Care Team Providers Care Molded Goods Embossing Press Operator Name Role Phone Areli Gurrola MD Primary Care Provider Encounter Details Date Type Department Care Team (Latest Contact Info) Description 01/11/2004 Outpatient Historical [facility] [address] [place] [address] Trell York MD [address] [place] [phone] CERVICALGIA (Primary Dx); DYSTHYMIC DISORDER Social History Tobacco Use Types Packs/Day Years Used Date Smoking Tobacco: Never Assessed Comments Unknown Sex and Gender Information Value Date Recorded Sex Assigned at Not on file Legal Sex Female 3:40 AM MARKETING AUTOMATION MANAGER Gender Identity Not on file Sexual [...] documented as of this encounter Care Teams Molded Goods Embossing Press Operator Relationship Specialty Start Date End Date Areli Gurrola MD [address] [place] [phone] PCP - General Specialist 08/12/19 documented as of this encounter
--- OUTSIDE RECORDS SUMMARY | 2025-01-26 17:22 | XMS_ITS | Encounter Summary ---
Author Organization [facility] Address [address] [place] [address] Care Team Providers Care Bus Cleaner Name Role Phone Areli Gurrola MD Primary Care Provider Encounter Details Date Type Department Care Team (Latest Contact Info) Description 03/06/2005 Outpatient Historical [facility] [address] [place] [address] Trell York MD [address] [place] [phone] DENTAL DISORDER NOS (Primary Dx); CERVICALGIA; LUMBAGO; DYSTHYMIC DISORDER Social History Tobacco Use Types Packs/Day Years Used Date Smoking Tobacco: Never Assessed Comments Unknown Sex and Gender Information Value Date Recorded Sex Assigned at Not on file Legal Sex Female 3:40 AM HOSE MENDER Gender Identity Not on file Sexual Orientation [...] as of this encounter Care Teams Bus Cleaner Relationship Specialty Start Date End Date Areli Gurrola MD [address] [facility] [place] [address] PCP - General Specialist 08/12/19 documented as of this encounter
--- OUTSIDE RECORDS SUMMARY | 2025-01-26 17:22 | XMS_ITS | Encounter Summary ---
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
--- OUTSIDE RECORDS SUMMARY | 2025-01-26 17:22 | XMS_ITS | Encounter Summary ---
Author Organization [facility] Address [address] [place] [address] Care Team Providers Care Rock Crusher Name Role Phone Areli Gurrola MD Primary Care Provider Encounter Details Date Type Department Care Team (Latest Contact Info) Description 05/20/2003 Outpatient Historical [facility] [address] [place] [address] Trell York MD [address] [place] [phone] ACUTE BRONCHITIS (Primary Dx) Social History Tobacco Use Types Packs/Day Years Used Date Smoking Tobacco: Never Assessed Comments Unknown Sex and Gender Information Value Date Recorded Sex Assigned at Not on file 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 Gender Identity Not on file Sexual Orientation Not on file documented as of this encounter Plan of Treatment Not on file documented as of this encounter Visit Diagnoses Diagnosis Acute bronchitis- Primary documented in this encounter Additional Health Concerns Infection Onset Date Last Indicated Resolved Time R/O COVID-19 01/31/2020 01/31/2020 02/02/2020 10:3 2 AM CDT documented as of this encounter Care Teams Rock Crusher Relationship Specialty Start Date End Date Areli Gurrola MD [address] [facility] [place] [address] PCP - General Specialist 08/12/19 documented as of this encounter
--- OUTSIDE RECORDS SUMMARY | 2025-01-26 17:22 | XMS_ITS | Encounter Summary ---
Author Organization [facility] Address [address] [place] [address] Care Team Providers Care Grocery Buyer Name Role Phone Areli Gurrola MD Primary Care Provider Encounter Details Date Type Department Care Team (Late st Contact Info) Description 07/07/2004 Outpatient Historical [facility] [address] 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
--- OUTSIDE RECORDS SUMMARY | 2025-01-26 17:22 | XMS_ITS | Encounter Summary ---
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
--- OUTSIDE RECORDS SUMMARY | 2025-01-26 17:23 | XMS_ITS | Encounter Summary ---
Author Organization [facility] Address [address] [place] [address] Care Team Providers Care Farmer Cash Grain Name Role Phone Areli Gurrola MD Primary Care Provider Encounter Details Date Type Department Care Team (Latest Contact Info) Description 10/09/2002 Outpatient Historical [facility] [place] [address] [place] [address] Gordon Cabral MD NO ADDRESS ON FILE Excessive menstruation (Primary Dx) Social History Tobacco Use Types Packs/Day Years Used Date Smoking Tobacco: Never Assessed Comments Unknown Sex and Gender Information Value Date Recorded Sex Assigned at Not on file 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
--- OUTSIDE RECORDS SUMMARY | 2025-01-26 17:23 | XMS_ITS | Encounter Summary ---
Author Organization [facility] Address [address] [facility] Attn: [place] [address] Care Team Providers Care Bods Developer Name Role Phone Areli Gurrola MD Primary Care Provider Encounter Details Date Type Department Care Team (Late st Contact Info) Description 03/12/1999 Outpatient Historical [place], Gibran Lynn MD [address] [facility] [address] [place] [phone] Social History Tobacco Use Types Packs/Day Years Used Date Smoking Tobacco: Never Assessed Comments Unknown Sex and Gender Information Value Date Recorded Sex Assigned at Not on file Legal Sex Female 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 HELPER Gender Identity Not on file Sexual Orientation Not on file documented as of this encounter Plan of Treatment Not on file documented as of this encounter Visit Diagnoses Not on filedocumented in this encounter Additional Health Concerns Infection Onset Date Last Indicated Resolved Time R/O COVID-19 01/31/2020 01/31/2020 02/02/2020 10:3 2 AM CDT documented as of this encounter Care Teams Bods Developer Relationship Specialty Start Date End Date Areli Gurrola MD [address] [facility] [place] [address] PCP - General Specialist 08/12/19 documented as of this encounter
--- OUTSIDE RECORDS SUMMARY | 2025-01-26 17:23 | XMS_ITS | Encounter Summary ---
Author Organization [facility] Address [address] [place] [address] Care Team Providers Care Crane Hooker Name Role Phone Areli Gurrola MD Primary Care Provider Encounter Details Date Type Department Care Team (Latest Contact Info) Description 10/22/2002 Outpatient Historical [facility] Operating Room [address] [place] [address] Gordon Cabral MD NO ADDRESS ON FILE POLYP OF CORPUS UTERI (Primary Dx) Social History Tobacco Use Types Packs/Day Years Used Date Smoking Tobacco: Never Assessed Comments Unknown Sex and Gender Information Value Date Recorded Sex Assigned at Not on file Legal 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
--- OUTSIDE RECORDS SUMMARY | 2025-01-26 17:23 | XMS_ITS | Encounter Summary ---
Author [facility] Address [address] [place] [address] Care Team Providers Care Geophysical Prospector Name Role Phone Areli Gurrola MD Primary Care Provider Encounter Details Date Type Department Care Team (Latest Contact Info) Description 07/05/1998 Outpatient Historical [facility] Charli Perez MD NO ADDRESS ON FILE Other specified aftercare following surgery (Primary Dx) Social History Tobacco Use Types Packs/Day Years Used Date Smoking Tobacco: Never Assessed Comments Unknown Sex and Gender Information Value Date Recorded Sex Assigned at Not on file 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
--- OUTSIDE RECORDS SUMMARY | 2025-01-26 17:23 | XMS_ITS | Clinical Summary ---
Author Organization [facility] Address [address] [place] [address] Care Team Providers Care Bath Mix Operator Name Role Phone Unavailable Primary Care [...] Amount: 6 Tablets 4 Tablet 12/05/2024 Active Active Problems Problem Noted Date Diagnosed Date Chronic anemia 05/14/2024 Hx of multiple sclerosis 05/14/2024 History of lower GI bleeding 05/14/2024 Cigarette dependence 10/20/2015 Encounters Date Type Department Care Team Description 01/14/2025 Orders Only [facility] Gastroenterology[address] [place] [address] Mirta Means DO Iron deficiency anemia, unspecified iron deficiency anemia type (Primary Dx); Hepatic cirrhosis, unspecified hepatic cirrhosis type, unspecified whether ascites present 01/14/2025 [facility] [place] [address] Mirta Means DO 01/13/2025 External Device Data [facility] ABSTRACTION Provider, Abstract 01/06/2025 External Device Data [facility] ABSTRACTION Provider, Abstract 01/06/2025 External Device Data [facility] ABSTRACTION Provider, Abstract 12/30/2024 External Device Data [facility] ABSTRACTION Provider, Abstract 12/09/2024 External Device Data [facility] ABSTRACTION Provider, Abstract 12/05/2024 7:24 PM CDT - 12/05/2024 9:47 PM CDT Emergency [facility] Emergency Medicine [address] [place] [address] Leg swelling (Primary Dx); Chronic bilateral low back pain without sciatica Discharge Disposition: Home or Self Care 11/22/2024 8:22 PM CDT - 11/22/2024 10:24 PM CDT Emergency [facility] Emergency Medicine [address] [place] [address] Julian Avila MD Nausea (Primary Dx); Acute low back pain without sciatica, unspecified back pain laterality Discharge Disposition: Home or Self Care 11/22/2024 Travel 10/28/2024 External Device Data STL ABSTRACTION Provider, Abstract 10/28/2024 External Device Data STL ABSTRACTION Provider, Abstract 10/28/2024 External Device Data STL ABSTRACTION Provider, Abstract from Last 3 Months Immunizations Immunization Administration [...] on file Legal Sex Female 6:21 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 PLATELET EST. Consistent w Count 12/05/2024 8:38 PM CDT [facility] RBC MORPHOLOGY Normal 12/05/2024 8:38 PM CDT [facility] Blood BLOOD SPECIMEN / Unknown Collection / Unknown 12/05/2024 8:13 PM CDT 12/05/2024 8:21 PM CDT us Julian Avila MD HEMATOLOGY ORDERABLES COM Final Result [facility] CLIA # [id number] [address] [address] * (ABNORMAL) CBC WITH DIFFERENTIAL (12/05/2024 8:13 PM CDT) Only the most recent of2 resultswithin the time period is included. WBC 4.0 4.0 - 10.0 K/uL 12/05/2024 8:38 PM [facility] RBC 3.03(L) 3.93 - 5.22 M/uL 12/05/2024 8:38 PM [facility] HEMOGLOBIN 8.4(L) 11.2 - 15.7 g/dL 12/05/2024 8:38 PM [facility] HEMATOCRIT 25.2(L) 34.1 - 44.9 % 12/05/2024 8:38 PM [facility] MCV 83.2 79.4 - 94.8 fL 12/05/2024 8:38 PM [facility] MCH 27.7 25.6 - 32.2 pg 12/05/2024 8:38 PM [facility] MCHC 33.3 32.2 - 35.5 g/dL 12/05/2024 8:38 PM [facility] RDW 16.5(H) 11.0 - 14.5 % 12/05/2024 8:38 PM [facility] RDW-STDEV 49.7 36.9 - 56.9 fL 12/05/2024 8:38 PM [facility] PLATELETS 97(L) 163 - 337 K/uL 12/05/2024 8:38 PM [facility] MPV 10.2 10.0 - 14.8 fL 12/05/2024 8:38 PM [facility] NEUTROPHILS 68 34 - 71 % 12/05/2024 8:38 PM [facility] LYMPHOCYTES 21 19 - 52 % 12/05/2024 8:38 PM [facility] MONOCYTES 8 5 - 13 % 12/05/2024 8:38 PM [facility] EOSINOPHILS 2 1 - 6 % 12/05/2024 8:38 PM [facility] BASOPHILS 1 0 - 1 % 12/05/2024 8:38 PM CDT [facility] IMMATURE GRANULOCYTES 1 % 12/05/2024 8:38 PM CDT [facility] NEUTROPHIL ABSOLUTE 2.72 1.56 - 6.13 K/uL 12/05/2024 8:38 PM CDT [facility] LYMPHOCYTE ABSOLUTE 0.83(L) 1.20 - 3.40 K/uL 12/05/2024 8:38 PM T [facility] MONOCYTE ABSOLUTE 0.30 0.24 - 0.36 K/uL 12/05/2024 8:38 PM CDT [facility] EOSINOPHIL ABSOLUTE 0.07 0.04 - 0.36 K/uL 12/05/2024 8:38 PM [facility] BASOPHILS ABSOLUTE 0.03 0.01 - 0.08 K/uL 12/05/2024 8:38 PM [facility] IMMATURE GRANULOCYTES ABSOLUTE 0.02 K/uL 12/05/2024 8:38 PM [facility] Blood BLOOD SPECIMEN / Unknown Collection / Unknown 12/05/2024 8:13 PM CDT 12/05/2024 8:21 PM CDT Julian Avila MD HEMATOLOGY ORDERABLES Final Result [id number] [address] [place] [address] * (ABNORMAL) COMPREHENSIVE METABOLIC PANEL (12/05/2024 8:13 PM CDT) Only the most recent of2 resultswithin the time period is included. SODIUM 140 136 - 145 mmol/L 12/05/2024 8:[facility] POT[facility] 3.4(L) 3.5 - 5.1 mmol/L 12/05/2024 8:56 PM [facility] CHLORIDE 106 98 - 107 mmol/L 12/05/2024 8:56 PM T [facility] CO2 24 22 - 29 mmol/L 12/05/2024 8:56 PM [facility] CALCIUM 8.2(L) 8.6 - 10.0 mg/dL 12/05/2024 8:56 PM [facility] BUN 5(L) 6 - 20 mg/dL 12/05/2024 8:56 PM [facility] CREATININE 0.62 0.51 - 0.95 mg/dL 12/05/2024 8:56 PM [facility] GLUCOSE 98 74 - 99 mg/dL 12/05/2024 8:56 PM [facility] TOTAL PROTEIN 5.2(L) 6.6 - 8.7 g/dL 12/05/2024 8:56 PM [facility] ALBUMIN 2.9(L) 3.5 - 5.2 g/dL 12/05/2024 8:56 PM [facility] BILIRUBIN TOTAL 2.4(H) 0.0 - 1.2 mg/dL 12/05/2024 8:56 PM [facility] ALKALINE PHOSPHATASE 135(H) 35 - 104 U/L 12/05/2024 8:56 PM [facility] AST 72(H) 0 - 35 U/L 12/05/2024 8:56 PM [facility] Comment:Hemolysis present. R esult may be falsely elevated. ALT 34 0 - 35 U/L 12/05/2024 8:56 PM [facility] GFR >60 >=60 mL/min/1.7 3 sq meter 12/05/2024 8:56 PM [facility] Comment:eGFR calculated with 2020 CKD-EPI equation. Vegetarian diet, extremely high or low muscle mass, and may affect results. Cystatin C with Glomerular Filtration Rate is a suitable alternative for these patients. ANION GAP 10 5 - 20 mmol/L 12/05/2024 8:56 PM [facility] Blood BLOOD SPECIMEN / Unknown Collection / Unknown 12/05/2024 8:13 PM CDT 12/05/2024 8:21 PM CDT Julian Avila MD CHEMISTRY ORDERABLES Final Result Performing Organization Address [facility]/ZIP Co de Phone Number [facility] CLIA # [id number] [address] [place] [address] * (ABNORMAL) LIPASE (11/22/2024 8:33 PM CDT) LIPASE 72(H) 13 - 60 U/L 11/22/2024 8:57 PM CDT [facility] Blood BLOOD SPECIMEN / Unknown Collection / Unknown 11/22/2024 8:33 PM CDT 11/22/2024 8:39 PM CDT Julian Avila MD CHEMISTRY ORDERABLES Final Result Performing Organization Address [facility] Co de Phone Number [facility] [id number] [address] [place] [address] * EKG 12 lead (11/22/2024 8:14 PM CDT) Narrative Julian Avila MD - 11/22/2024 8:14 PM CDT Julian Avila MD 11/22/2024 11:44 PM EKG 12 lead Performed by: Julian Avila MD Authorized by: Julian Avila MD Comments: Normal sinus rhythm no evidence of ischemia or infarct normal axis and intervals no arrhythmias Julian Avila MD ECG ORDERABLES Final Result * HEMOGLOBIN A1C (01/20/2015) SHELL [...] to Health Maintenance Insurance [place] [employer] [facility]
--- OUTSIDE RECORDS SUMMARY | 2025-01-26 17:23 | XMS_ITS | Encounter Summary ---
Author Organization [facility] Address [address] [place] [address] Care Team Providers Care Mobility Developer Name Role Phone Areli Gurrola MD Primary Care Provider Encounter Details Date Type Department Care Team (Latest Contact Info) Description 05/11/2003 Outpatient Historical [facility] [address] [place] [address] Trell [place] MD [address] [place] [phone] CERVICALGIA (Primary Dx) Social History Tobacco Use Types Packs/Day Years Used Date Smoking Tobacco: Never Assessed Comments Unknown Sex and Gender Information Value Date Recorded Sex Assigned at Not on file 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 Gender Identity Not on file Sexual Orientation Not on file documented as of this encounter Plan of Treatment Not on file documented as of this encounter Visit Diagnoses Diagnosis Cervicalgia- Primary documented in this encounter Additional Health Concerns Infection Onset Date Last Indicated Resolved Time R/O COVID-19 01/31/2020 01/31/2020 02/02/2020 10:3 2 AM CDT documented as of this encounter Care Teams Mobility Developer Relationship Specialty Start Date End Date Arlei Gurrola MD [address] [facility] [place] [address] PCP - General Specialist 08/12/19 documented as of this encounter
--- OUTSIDE RECORDS SUMMARY | 2025-01-26 17:23 | XMS_ITS | Encounter Summary ---
Author Organization [facility] Address [address] [place] [address] Care Team Providers Care Vessel Liner Name Role Phone Areli Gurrola MD Primary Care Provider Encounter Details Date Type Department Care Team (Latest Contact Info) Description 02/02/1999 Outpatient Historical [facility] [address] [place] [address] Alumno, Gibran Lynn MD [address] [place] [address] Sprain and strain of other specified sites of shoulder and upper arm (Primary Dx); Hx musculoskletl dis NEC Social History Tobacco Use Types Packs/Day Years Used Date Smoking Tobacco: Never Assessed Comments Unknown Sex and Gender Information Value Date Recorded Sex Assigned at Not on file Legal Sex Female 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
--- OUTSIDE RECORDS SUMMARY | 2025-01-26 17:23 | XMS_ITS | Encounter Summary ---
Author Organization [facility] Address [address] [place] [address] Care Team Providers Care Tile Grinder Name Role Phone Areli Gurrola MD Primary Care Provider Encounter Details Date Type Department Care Team (Latest Contact Info) Description 06/04/1998 Outpatient Historical [facility] PLASTIC SURGERY Charli Perez MD NO ADDRESS ON FILE Open wound of forehead (Primary Dx) Social History Tobacco Use Types Packs/Day Years Used Date Smoking Tobacco: Never Assessed Comments Unknown Sex and Gender Information Value Date Recorded Sex Assigned at Not on file Legal 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
--- OUTSIDE RECORDS SUMMARY | 2025-01-26 17:23 | XMS_ITS | Encounter Summary ---
Author Organization [facility] Address [address] [place] [address] Care Team Providers Care Otm Consultant Name Role Phone Areli Gurrola MD Primary Care Provider Encounter Details Date Type Department Care Team (Latest Contact Info) Description 02/14/1999 Outpatient Historical [facility] [address] [place] [address] Alumno, Gibran Lynn MD [address] [place] [address] Sprain and strain of other specified sites of shoulder and upper arm (Primary Dx) Social History Tobacco Use Types Packs/Day Years Used Date Smoking Tobacco: Never Assessed Comments Unknown Sex and Gender Information Value Date Recorded Sex Assigned at Not on file Legal 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
--- OUTSIDE RECORDS SUMMARY | 2025-01-26 17:23 | XMS_ITS | Encounter Summary ---
Author Organization [facility] Address [address] [place] [address] Care Team Providers Care Boat Outfitting Supervisor Name Role Phone Areli Gurrola MD Primary Care Provider Encounter Details Date Type Department Care Team (Latest Contact Info) Description 07/07/[address] [facility] Imaging Services [place] [address] 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
--- OUTSIDE RECORDS SUMMARY | 2025-01-26 17:23 | XMS_ITS | Encounter Summary ---
Author Organization [facility] Address [address] [place] [address] Care Team Providers Care Military Administrative Technician Name Role Phone Areli Gurrola MD Primary Care Provider Encounter Details Date Type Department Care Team (Latest Contact Info) Description 03/09/1999 Outpatient [facility] [place] [place] [address] Alumno, Gibran Lynn MD [address] [place] [address] Sprain and strain of unspecified site of shoulder and upper arm (Primary Dx); Backache, unspecified Social History Tobacco Use Types Packs/Day Years Used Date Smoking Tobacco: Never Assessed Comments Unknown Sex and Gender Information Value Date Recorded Sex Assigned at Not on file 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
--- OUTSIDE RECORDS SUMMARY | 2025-01-26 17:23 | XMS_ITS | Encounter Summary ---
Author Organization [facility] Address [address] [place] [address] Care Team Providers Care Drag Car Racer Name Role Phone Areli Gurrola MD Primary Care Provider Encounter Details Date Type Department Care Team (Latest Contact Info) Description 07/19/1998 Outpatient Historical [facility]LAST[facility]GERY Charli Perez MD NO ADDRESS ON FILE Scar condition and fibrosis of skin (Primary Dx) Social History Tobacco Use Types Packs/Day Years Used Date Smoking Tobacco: Never Assessed Comments Unknown Sex and Gender Information Value Date Recorded Sex Assigned at Not on file 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
--- OUTSIDE RECORDS SUMMARY | 2025-01-26 17:23 | XMS_ITS | Encounter Summary ---
Author Organization [facility] Address [address] [place] [address] Care Team Providers Care Aquarium Tank Attendant Name Role Phone Areli Gurrola MD Primary Care Provider Encounter Details Date Type Department Care Team (Latest Contact Info) Description 10/03/2002 Outpatient [facility] [address] [place] [address] Gordon Cabral MD NO ADDRESS ON FILE MENSTRUAL DISORDER NEC (Primary Dx) Social History Tobacco Use Types Packs/Day Years Used Date Smoking Tobacco: Never Assessed Comments Unknown Sex and Gender Information Value Date Recorded Sex Assigned at Not on file Legal Sex Female 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
--- OUTSIDE RECORDS SUMMARY | 2025-01-26 17:23 | XMS_ITS | Encounter Summary ---
Author Organization [facility] Address [address] [place] [address] Care Team Providers Care Flatwork Washer Name Role Phone Areli Gurrola MD Primary Care Provider Encounter Details Date Type Department Care Team (Latest Contact Info) Description 10/28/2002 Outpatient Historical [facility] [address] [place] [address] Gordon Cabral MD NO ADDRESS ON FILE SURGERY FOLLOWUP, UNSPEC (Primary Dx) Social History Tobacco Use Types Packs/Day Years Used Date Smoking Tobacco: Never Assessed Comments Unknown Sex and Gender Information Value Date Recorded Sex Assigned at Not on file Legal Sex Female 3:40 AM RANCH RIDER Gender Identity Not on file Sexual Orientation [...] documented as of this encounter Care Teams Flatwork Washer Relationship Specialty Start Date End Date Areli Gurrola MD [address] [facility] [place] [address] PCP - General Specialist 08/12/19 documented as of this encounter
--- OUTSIDE RECORDS SUMMARY | 2025-01-26 17:23 | XMS_ITS | Encounter Summary ---
Author Organization [facility] Address [address] [place] [address] Care Team Providers Care Heel Gummer Name Role Phone Areli Gurrola MD Primary Care Provider Encounter Details Date Type Department Care Team (Late st Contact Info) Description 10/27/2002 Emergency [facility] Emergency Department [address] [place] [address] Cira Archibald MD NO ADDRESS ON FILE FEMALE GENITAL SYMPTOMS NOS (Primary Dx) Social History Tobacco Use Types Packs/Day Years Used Date Smoking Tobacco: Never Assessed Comments Unknown Sex and Gender Information Value Date Recorded Sex Assigned at Not on file Legal Sex Female 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
--- OUTSIDE RECORDS SUMMARY | 2025-01-26 17:23 | XMS_ITS | Encounter Summary ---
Author Organization 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
--- OUTSIDE RECORDS SUMMARY | 2025-01-26 17:23 | XMS_ITS | Encounter Summary ---
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
--- OUTSIDE RECORDS SUMMARY | 2025-01-26 17:23 | XMS_ITS | Encounter Summary ---
Author Organization [facility] Address [address] [place] [address] Care Team Providers Care Emergency Department Nurse Name Role Phone Areli Gurrola MD Primary Care Provider Encounter Details Date Type Department Care Team (Latest Contact Info) Description 07/06/2004 [facility] [address] [place] [address] Trell [place] MD [address] [place] [address] DYSTHYMIC DISORDER (Primary Dx); BACKACHE NOS; CERVICALGIA Social History Tobacco Use Types Packs/Day Years Used Date Smoking Tobacco: Never Assessed Comments Unknown Sex and Gender Information Value Date Recorded Sex Assigned at Not on file Legal Sex Female 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
--- OUTSIDE RECORDS SUMMARY | 2025-01-26 17:23 | XMS_ITS | Encounter Summary ---
Author Organization [facility] Address [address] [place] [address] Care Team Providers Care Market Relationship Manager Name Role Phone Areli Gurrola MD Primary Care Provider Encounter Details Date Type Department Care Team (Latest Contact Info) Description 03/14/1999 Outpatient [facility] [address] [place] [address] Ti Rondon MD [address] [place] [address] Abdominal pain, unspecified site (Primary Dx); Fever and other physiologic disturbances of temperature regulation; Backache, unspecified Social History Tobacco Use Types Packs/Day Years Used Date Smoking Tobacco: Never Assessed Comments Unknown Sex and Gender Information Value Date Recorded Sex Assigned at Not on file Legal 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
--- OUTSIDE RECORDS SUMMARY | 2025-01-26 17:23 | XMS_ITS | Encounter Summary ---
Author Organization [facility] Address [address] [place] [address] Care Team Providers Care Golf Course Mechanic Name Role Phone Areli Gurrola MD Primary Care Provider Encounter Details Date Type Department Care Team (Latest Contact Info) Description 10/09/2002 Outpatient Historical [facility] [place] [address] [place] [address] Gordon Cabral MD NO ADDRESS ON FILE Excessive menstruation (Primary Dx) Social History Tobacco Use Types Packs/Day Years Used Date Smoking Tobacco: Never Assessed Comments Unknown Sex and Gender Information Value Date Recorded Sex Assigned at Not on file Legal Sex Female 3:40 AM APPLICATION CHEMIST Gender Identity Not on file Sexual [...] as of this encounter Care Teams Golf Course Mechanic Relationship Specialty Start Date End Date Areli Gurrola MD [address] [facility] [place] [address] PCP - General Specialist 08/12/19 documented as of this encounter
--- OUTSIDE RECORDS SUMMARY | 2025-01-26 17:23 | XMS_ITS | Encounter Summary ---
Author Organization [facility] Address [address] [place] [address] Care Team Providers Care Forestry Engineer Name Role Phone Areli Gurrola MD Primary Care Provider Encounter Details Date Type Department Care Team (Latest Contact Info) Description 04/25/2004 Outpatient Historical [facility] [address] [place] [address] Trell [place] MD [address] [place] [phone] DYSTHYMIC DISORDER (Primary Dx); LUMBAGO; Pain in limb; Inflamed seborr keratos Social History Tobacco Use Types Packs/Day Years Used Date Smoking Tobacco: Never Assessed Comments Unknown Sex and Gender Information Value Date Recorded Sex Assigned at Not on file Legal Sex Female 3:40 AM SECOND BUTLER Gender Identity Not on file Sexual Orientation [...] as of this encounter Care Teams Forestry Engineer Relationship Specialty Start Date End Date Areli Gurrola MD [address] [facility] [place] [address] PCP - General Specialist 08/12/19 documented as of this encounter
--- OUTSIDE RECORDS SUMMARY | 2025-01-26 17:23 | XMS_ITS | Encounter Summary ---
Author Organization [facility] Address [address] [place] [address] Care Team Providers Care Barn Hand Name Role Phone Areli Gurrola MD Primary Care Provider Encounter Details Date Type Department Care Team (Latest Contact Info) Description 10/16/2002 Outpatient [facility] [place] [address] [place] [address] Gordon Cabral MD NO ADDRESS ON FILE PREOP EXAM OTHER SPECIFIED (Primary Dx); Excessive menstruation Social History Tobacco Use Types Packs/Day Years Used Date Smoking Tobacco: Never Assessed Comments Unknown Sex and Gender Information Value Date Recorded Sex Assigned at Not on file Legal 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
--- OUTSIDE RECORDS SUMMARY | 2025-01-26 17:23 | XMS_ITS | Encounter Summary ---
Author Organization [facility] Address [address] [place] [address] Care Team Providers Care Screw Machine Tender Name Role Phone Areli Gurrola MD Primary Care Provider Encounter Details Date Type Department Care Team (Latest Contact Info) Description 10/20/2002 Outpatient Historical [facility] [address] [address] [place] [address] [place] [address] Gordon Cabral MD NO ADDRESS ON FILE PREOP EXAM OTHER SPECIFIED (Primary Dx) Social History Tobacco Use Types Packs/Day Years Used Date Smoking Tobacco: Never Assessed Comments Unknown Sex and Gender Information Value Date Recorded Sex Assigned at Not on file Legal Sex Female 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
--- OUTSIDE RECORDS SUMMARY | 2025-01-26 17:23 | XMS_ITS | Encounter Summary ---
Author Organization [facility] Address [address] [place] [address] Care Team Providers Care Graduate Assistant Name Role Phone Areli Gurrola MD Primary Care Provider Encounter Details Date Type Department Care Team (Latest Contact Info) Description 10/03/2002 Outpatient [facility] [place] [address] [place] [address] Gordon Cabral MD NO ADDRESS ON FILE METRORRHAGIA (Primary Dx) Social History Tobacco Use Types Packs/Day Years Used Date Smoking Tobacco: Never Assessed Comments Unknown Sex and Gender Information Value Date Recorded Sex Assigned at Not on file Legal Sex Female 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 DRESSER Gender Identity Not on file Sexual Orientation Not on file documented as of this encounter Plan of Treatment Not on file documented as of this encounter Visit Diagnoses Diagnosis Metrorrhagia- Primary documented in this encounter Additional Health Concerns Infection Onset Date Last Indicated Resolved Time R/O COVID-19 01/31/2020 01/31/2020 02/02/2020 10:3 2 AM CDT documented as of this encounter Care Teams Graduate Assistant Relationship Specialty Start Date End Date Areli Gurrola MD [address] [place] [address] PCP - General Specialist 08/12/19 documented as of this encounter
--- OUTSIDE RECORDS SUMMARY | 2025-01-26 17:23 | XMS_ITS | Encounter Summary ---
Author Organization [facility] Address [address] [place] [address] Care Team Providers Care Contact Lens Edge Buffer Name Role Phone Areli Gurrola MD Primary Care Provider Encounter Details Date Type Department Care Team (Latest Contact Info) Description 06/07/1998 Outpatient Historical [facility] Charli Perez MD NO ADDRESS ON FILE Open wound of forehead (Primary Dx) Social History Tobacco Use Types Packs/Day Years Used Date Smoking Tobacco: Never Assessed Comments Unknown Sex and Gender Information Value Date Recorded Sex Assigned at Not on file Legal Sex Female 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
--- OUTSIDE RECORDS SUMMARY | 2025-01-26 17:23 | XMS_ITS | Encounter Summary ---
Author Organization [facility] Address [address] [place] [address] Care Team Providers Care Radiation Control Worker Name Role Phone Areli Gurrola MD Primary Care Provider Encounter Details Date Type Department Care Team (Latest Contact Info) Description 02/14/1999 Outpatient Historical [facility] Services-[facility] [place] [address] [place] [address] AlumnoGibran MD [address] [place] [address] Lumbago (Primary Dx) Social History Tobacco Use Types Packs/Day Years Used Date Smoking Tobacco: Never Assessed Comments Unknown Sex and Gender Information Value Date Recorded Sex Assigned at Not on file Legal Sex Female 3:40 AM SUPERVISOR PATCHING Gender Identity Not on file Sexual Orientation Not on file documented as of this encounter Plan of Treatment Not on file documented as of this encounter Visit Diagnoses Diagnosis Lumbago- Primary documented in this encounter Additional Health Concerns Infection Onset Date Last Indicated Resolved Time R/O COVID-19 01/31/2020 01/31/2020 02/02/2020 10:3 2 AM CDT documented as of this encounter Care Teams Radiation Control Worker Relationship Specialty Start Date End Date Areli Gurrola MD [address] [place] [address] PCP - General Specialist 08/12/19 documented as of this encounter
--- OUTSIDE RECORDS SUMMARY | 2025-01-26 17:23 | XMS_ITS | Encounter Summary ---
Author Organization [facility] Address [address] [place] [address] Care Team Providers Care Wool Carder Name Role Phone Areli Gurrola MD Primary Care Provider Encounter Details Date Type Department Care Team (Latest Contact Info) Description 10/14/2002 Outpatient Historical [facility] [address] [place] [address] Trell York MD [address] [place] [phone] ACUTE URI NOS (Primary Dx); COUGH Social History Tobacco Use Types Packs/Day Years Used Date Smoking Tobacco: Never Assessed Comments Unknown Sex and Gender Information Value Date Recorded Sex Assigned at Not on file Legal Sex Female 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
--- OUTSIDE RECORDS SUMMARY | 2025-01-26 17:24 | XMS_ITS | Encounter Summary ---
Author Organization [facility] Address [address] [place] [address] Care Team Providers Care Cane Weigher Helper Name Role Phone Areli Gurrola MD Primary Care Provider Encounter Details Date Type Department Care Team (Latest Contact Info) Description 12/02/2002 Outpatient [facility] [place] [address] [place] [address] Gordon Cabral MD NO ADDRESS ON FILE FEMALE GENITAL SYMPTOMS NOS (Primary Dx) Social History Tobacco Use Types Packs/Day Years Used Date Smoking Tobacco: Never Assessed Comments Unknown Sex and Gender Information Value Date Recorded Sex Assigned at Not on file Legal Sex Female 3:40 AM DISTANCE EDUCATION DIRECTOR Gender Identity Not on file Sexual [...] as of this encounter Care Teams Cane Weigher Helper Relationship Specialty Start Date End Date Areli Gurrola MD [address] [facility] [facility] [place] [address] PCP - General Specialist 08/12/19 documented as of this encounter
--- OUTSIDE RECORDS SUMMARY | 2025-01-26 17:24 | XMS_ITS | Encounter Summary ---
Author Organization [facility] Address [address] [place] [address] Care Team Providers Care Phonograph Needle Tip Maker Name Role Phone Areli Gurrola MD Primary Care Provider Encounter Details Date Type Department Care Team (Latest Contact Info) Description 11/25/2002 Outpatient Historical [facility] [place] [address] [place] [address] Gordon Cabral MD NO ADDRESS ON FILE DYSMENORRHEA (Primary Dx) Social History Tobacco Use Types Packs/Day Years Used Date Smoking Tobacco: Never Assessed Comments Unknown Sex and Gender Information Value Date Recorded Sex Assigned at Not on file Legal Sex Female 3:40 AM BOX BENDER Gender Identity Not on file Sexual Orientation Not on file documented as of this encounter Plan of Treatment Not on file documented as of this encounter Visit Diagnoses Diagnosis Dysmenorrhea- Primary documented in this encounter Additional Health Concerns Infection Onset Date Last Indicated Resolved Time R/O COVID-19 01/31/2020 01/31/2020 02/02/2020 10:3 2 AM CDT documented as of this encounter Care Teams Phonograph Needle Tip Maker Relationship Specialty Start Date End Date Areli Gurrola MD [address] [place] [address] PCP - General Specialist 08/12/19 documented as of this encounter
--- OUTSIDE RECORDS SUMMARY | 2025-01-26 17:24 | XMS_ITS | Encounter Summary ---
Author Organization [facility] Address [address] [place] [address] Care Team Providers Care Printer Floor Covering Assistant Name Role Phone Areli Gurrola MD Primary Care Provider Encounter Details Date Type Department Care Team (Latest Contact Info) Description 04/21/2003 Outpatient [facility] [place] [address] [place] [address] Gordon Cabral MD NO ADDRESS ON FILE URIN TRACT INFECTION NOS (Primary Dx) Social History Tobacco Use Types Packs/Day Years Used Date Smoking Tobacco: Never Assessed Comments Unknown Sex and Gender Information Value Date Recorded Sex Assigned at Not on file Legal Sex Female 3: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
--- OUTSIDE RECORDS SUMMARY | 2025-01-26 17:24 | XMS_ITS | Encounter Summary ---
Author Organization [facility] Address [address] [place] [address] Care Team Providers Care Piccoloist Name Role Phone Areli Gurrola MD Primary Care Provider Encounter Details Date Type Department Care Team (Latest Contact Info) Description 10/31/2002 Outpatient Historical [facility] [place] [address] [place] [address] Gordon Cabral MD NO ADDRESS ON FILE SURGERY FOLLOWUP, UNSPEC (Primary Dx) Social History Tobacco Use Types Packs/Day Years Used Date Smoking Tobacco: Never Assessed Comments Unknown Sex and Gender Information Value Date Recorded Sex Assigned at Not on file Legal Sex Female 3:40 AM STAIN MAKER Gender Identity Not on file Sexual [...] documented as of this encounter Care Teams Piccoloist Relationship Specialty Start Date End Date Areli Gurrola MD [address] [facility] [place] [address] PCP - General Specialist 08/12/19 documented as of this encounter
--- OUTSIDE RECORDS SUMMARY | 2025-01-26 17:24 | XMS_ITS | Encounter Summary ---
Author Organization [facility] Address [address] [place] [address] Care Team Providers Care Lead Custodian Name Role Phone Areli Gurrola MD Primary Care Provider Encounter Details Date Type Department Care Team (Latest Contact Info) Description 12/04/2001 Outpatient [facility] [address] [place] [address] Trell York MD [address] [place] [phone] ACUTE BRONCHITIS (Primary Dx); COUGH Social History Tobacco Use Types Packs/Day Years Used Date Smoking Tobacco: Never Assessed Comments Unknown Sex and Gender Information Value Date Recorded Sex Assigned at Not on file Legal Sex Female 3:40 AM OFFSET PRINTING PRESSMEN Gender Identity Not on file Sexual Orientation [...] as of this encounter Care Teams Lead Custodian Relationship Specialty Start Date End Date Areli Gurrola MD [address] [facility] [place] [address] PCP - General Specialist 08/12/19 documented as of this encounter
--- OUTSIDE RECORDS SUMMARY | 2025-01-26 17:24 | XMS_ITS | Encounter Summary ---
Author Organization [facility] Address [address] [place] [address] Care Team Providers Care Station Installation Supervisor Name Role Phone Areli Gurrola MD Primary Care Provider Encounter Details Date Type Department Care Team (Latest Contact Info) Description 01/20/2002 Outpatient Historical 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
--- OUTSIDE RECORDS SUMMARY | 2025-01-26 17:24 | XMS_ITS | Encounter Summary ---
Author Organization [facility] Address [address] [place] [address] Care Team Providers Care Team Cdl Driver Name Role Phone Areli Gurrola MD Primary Care Provider Encounter Details Date Type Department Care Team (Latest Contact Info) Description 12/18/2002 Outpatient [facility] [place] [address] [place] [address] Gordon Cabral MD NO ADDRESS ON FILE PREOP EXAM OTHER SPECIFIED (Primary Dx); Excessive menstruation; FEMALE GENITAL SYMPTOMS NOS Social History Tobacco Use Types Packs/Day Years Used Date Smoking Tobacco: Never Assessed Comments Unknown Sex and Gender Information Value Date Recorded Sex Assigned at Not on file Legal Sex Female 3:40 AM LUMP ROLLER Gender Identity Not on file Sexual Orientation [...] documented as of this encounter Care Teams Team Cdl Driver Relationship Specialty Start Date End Date Areli Gurrola MD [address] [place] [address] PCP - General Specialist 08/12/19 documented as of this encounter
--- OUTSIDE RECORDS SUMMARY | 2025-01-26 17:24 | XMS_ITS | Encounter Summary ---
Author Organization [facility] Address [address] [place] [address] Care Team Providers Care Machine Assembler Supervisor Name Role Phone Areli Gurrola MD Primary Care Provider Encounter Details Date Type Department Care Team (Latest Contact Info) Description 02/05/2003 Outpatient Historical [facility] [place] [address] [place] [address] Gordon Cabral MD NO ADDRESS ON FILE SURGERY FOLLOWUP, UNSPEC (Primary Dx) Social History Tobacco Use Types Packs/Day Years Used Date Smoking Tobacco: Never Assessed Comments Unknown Sex and Gender Information Value Date Recorded Sex Assigned at Not on file Legal Sex Female 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
--- OUTSIDE RECORDS SUMMARY | 2025-01-26 17:24 | XMS_ITS | Encounter Summary ---
Author Organization [facility] Address [address] [place] [address] Care Team Providers Care Senior Principal Name Role Phone Areli Gurrola MD Primary Care Provider Encounter Details Date Type Department Care Team (Latest Contact Info) Description 11/20/[address] 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
--- OUTSIDE RECORDS SUMMARY | 2025-01-26 17:24 | XMS_ITS | Encounter Summary ---
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
--- OUTSIDE RECORDS SUMMARY | 2025-01-26 17:24 | XMS_ITS | Encounter Summary ---
Author Organization [facility] Address [address] [place] [address] Care Team Providers Care Yarn Dyer Name Role Phone Areli Gurrola MD Primary Care Provider Encounter Details Date Type Department Care Team (Latest Contact Info) Description 01/09/2002 Outpatient Historical [facility] [address] [place] [address] Trell York MD [address] [place] [phone] HEADACHE (Primary Dx); CERVICALGIA Social History Tobacco Use Types Packs/Day Years Used Date Smoking Tobacco: Never Assessed Comments Unknown Sex and Gender Information Value Date Recorded Sex Assigned at Not on file 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
--- OUTSIDE RECORDS SUMMARY | 2025-01-26 17:24 | XMS_ITS | Encounter Summary ---
Author Organization 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
--- OUTSIDE RECORDS SUMMARY | 2025-01-26 17:24 | XMS_ITS | Encounter Summary ---
Author Organization [facility] Address [address] [place] [address] Care Team Providers Care Applied Mathematician Name Role Phone Areli Gurrola MD Primary Care Provider Encounter Details Date Type Department Care Team (Latest Contact Info) Description 10/21/2001 Outpatient Historical 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
--- OUTSIDE RECORDS SUMMARY | 2025-01-26 17:24 | XMS_ITS | Encounter Summary ---
Author Organization [facility] Address [address] [place] [address] Care Team Providers Care Community Life Director Name Role Phone Areli Gurrola MD Primary Care Provider Encounter Details Date Type Department Care Team (Latest Contact Info) Description 12/18/2002 Outpatient Historical [facility] [address] [place] [address] Gordon Cabral MD NO ADDRESS ON FILE PREOP EXAM OTHER SPECIFIED (Primary Dx) Social History Tobacco Use Types Packs/Day Years Used Date Smoking Tobacco: Never Assessed Comments Unknown Sex and Gender Information Value Date Recorded Sex Assigned at Not on file Legal Sex Female 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
--- OUTSIDE RECORDS SUMMARY | 2025-01-26 17:25 | XMS_ITS | Encounter Summary ---
Author Organization [facility] Address [address] [place] [address] Care Team Providers Care Molded Goods Embossing Press Operator Name Role Phone Areli Gurrola MD Primary Care Provider Encounter Details Date Type Department Care Team (Latest Contact Info) Description 07/16/2001 Outpatient Historical [facility] [address] [place] [address] Trell York MD [address] [place] [phone] SWELLING OF LIMB (Primary Dx) Social History Tobacco Use Types Packs/Day Years Used Date Smoking Tobacco: Never Assessed Comments Unknown Sex and Gender Information Value Date Recorded Sex Assigned at Not on file 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
--- OUTSIDE RECORDS SUMMARY | 2025-01-26 17:25 | XMS_ITS | Encounter Summary ---
Author Organization [facility] Address [address] [place] [address] Care Team Providers Care Floor Coverer Name Role Phone Areli Gurrola MD Primary Care Provider Encounter Details Date Type Department Care Team (Late st Contact Info) Description 04/14/2002 Outpatient Historical [facility] [address] [place] [address] Miguelangel Mas, NO ADDRESS ON FILE SPRAIN OF ANKLE NOS (Primary Dx) Social History Tobacco Use Types Packs/Day Years Used Date Smoking Tobacco: Never Assessed Comments Unknown Sex and Gender Information Value Date Recorded Sex Assigned at Not on file Legal Sex Female 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
--- OUTSIDE RECORDS SUMMARY | 2025-01-26 17:25 | XMS_ITS | Encounter Summary ---
Author Organization [facility] Address [address] [place] [address] Care Team Providers Care Any Commodity Sales Deliverer Name Role Phone Areli Gurrola MD Primary Care Provider Encounter Details Date Type Department Care Team (Latest Contact Info) Description 07/30/2002 Outpatient Historical [facility] [address] [place] [address] Trell York MD [address] [place] [phone] INSOMNIA NEC (Primary Dx); NEUROTIC DEPRESSION; LUMBAGO Social History Tobacco Use Types Packs/Day Years Used Date Smoking Tobacco: Never Assessed Comments Unknown Sex and Gender Information Value Date Recorded Sex Assigned at Not on file Legal 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
--- OUTSIDE RECORDS SUMMARY | 2025-01-26 17:25 | XMS_ITS | Encounter Summary ---
Author Organization [facility] Address [address] [facility] Attn: [place] [address] Care Team Providers Care Enrobing Machine Corder Name Role Phone Areli Gurrola MD Primary Care Provider Encounter Details Date Type Department Care Team (Late st Contact Info) Description 07/30/2001 Outpatient Historical [place], Trell Pascual MD [address] [place] [phone] Social History Tobacco Use Types Packs/Day Years Used Date Smoking Tobacco: Never Assessed Comments Unknown Sex and Gender Information Value Date Recorded Sex Assigned at Not on file Legal Sex Female 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
--- OUTSIDE RECORDS SUMMARY | 2025-01-26 17:25 | XMS_ITS | Encounter Summary ---
Author Organization [facility] Address [address] [place] [address] Care Team Providers Care Crew Leader/Control Room Operator Name Role Phone Areli Gurrola MD Primary Care Provider Encounter Details Date Type Department Care Team (Latest Contact Info) Description 07/29/2001 Outpatient Historical [facility] [address] [place] [address] Trell York MD [address] [place] [phone] COMMON MIGRAINE W/O MENTN INTRACT (Primary Dx); LUMBAGO Social History Tobacco Use Types Packs/Day Years Used Date Smoking Tobacco: Never Assessed Comments Unknown Sex and Gender Information Value Date Recorded Sex Assigned at Not on file Legal 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
--- OUTSIDE RECORDS SUMMARY | 2025-01-26 17:25 | XMS_ITS | Encounter Summary ---
Author Organization [facility] Address [address] [place] [address] Care Team Providers Care Fountain Supervisor Name Role Phone Areli Gurrola MD Primary Care Provider Encounter Details Date Type Department Care Team (Latest Contact Info) Description 03/20/2002 Outpatient Historical [facility] [address] [place] [address] Trell York MD [address] [place] [phone] ESOPHAGITIS, UNSPECIFIED (Primary Dx); CERVICALGIA; UNSPEC CONSTIPATION Social History Tobacco Use Types Packs/Day Years Used Date Smoking Tobacco: Never Assessed Comments Unknown Sex and Gender Information Value Date Recorded Sex Assigned at Not on file Legal Sex Female 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
--- OUTSIDE RECORDS SUMMARY | 2025-01-26 17:25 | XMS_ITS | Encounter Summary ---
Author Organization [facility] Address [address] [place] [address] Care Team Providers Care Plastic Finisher Name Role Phone Areli Gurrola MD Primary Care Provider Encounter Details Date Type Department Care Team (Late st Contact Info) Description 04/14/2002 Outpatient Historical [facility] [address] [place] [address] Miguelangel Mas, NO ADDRESS ON FILE JOINT PAIN-ANKLE (Primary Dx) Social History Tobacco Use Types Packs/Day Years Used Date Smoking Tobacco: Never Assessed Comments Unknown Sex and Gender Information Value Date Recorded Sex Assigned at Not on file Legal 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
--- OUTSIDE RECORDS SUMMARY | 2025-01-26 17:25 | XMS_ITS | Encounter Summary ---
Author Organization [facility] Address [address] [place] [address] Care Team Providers Care Welding Machine Assembler Name Role Phone Areli Gurrola MD Primary Care Provider Encounter Details Date Type Department Care Team (Latest Contact Info) Description 04/07/2002 Outpatient Historical [facility] [address] [place] [address] Trell York MD [address] [place] [phone] URTICARIA NOS (Primary Dx) Social History Tobacco Use Types Packs/Day Years Used Date Smoking Tobacco: Never Assessed Comments Unknown Sex and Gender Information Value Date Recorded Sex Assigned at Not on file Legal 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 Female 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 Gender Identity Not on file Sexual Orientation Not on file documented as of this encounter Plan of Treatment Not on file documented as of this encounter Visit Diagnoses Diagnosis Urticaria, unspecified- Primary documented in this encounter Additional Health Concerns Infection Onset Date Last Indicated Resolved Time R/O COVID-19 01/31/2020 01/31/2020 02/02/2020 10:3 2 AM CDT documented as of this encounter Care Teams Welding Machine Assembler Relationship Specialty Start Date End Date Areli Gurrola MD [address] [facility] [place] [address] PCP - General Specialist 08/12/19 documented as of this encounter
--- OUTSIDE RECORDS SUMMARY | 2025-01-26 17:25 | XMS_ITS | Encounter Summary ---
Author Organization [facility] Address [address] [place] [address] Care Team Providers Care State Archivist Name Role Phone Areli Gurrola MD Primary Care Provider Encounter Details Date Type Department Care Team (Latest Contact Info) Description 08/20/2001 Outpatient Historical [facility] [address] [place] [address] Trell York MD [address] [place] [phone] ACUTE PHARYNGITIS (Primary Dx) Social History Tobacco Use Types Packs/Day Years Used Date Smoking Tobacco: Never Assessed Comments Unknown Sex and Gender Information Value Date Recorded Sex Assigned at Not on file Legal 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 Gender Identity Not on file Sexual Orientation Not on file documented as of this encounter Plan of Treatment Not on file documented as of this encounter Visit Diagnoses Diagnosis Acute pharyngitis- Primary documented in this encounter Additional Health Concerns Infection Onset Date Last Indicated Resolved Time R/O COVID-19 01/31/2020 01/31/2020 02/02/2020 10:3 2 AM CDT documented as of this encounter Care Teams State Archivist Relationship Specialty Start Date End Date Areli Gurrola MD [address] [facility] [place] [phone] PCP - General Specialist 08/12/19 documented as of this encounter
--- OUTSIDE RECORDS SUMMARY | 2025-01-26 17:25 | XMS_ITS | Encounter Summary ---
Author Organization [facility] Address [address] [place] [address] Care Team Providers Care Cash On Delivery Clerk Name Role Phone Areli Gurrola MD Primary Care Provider Encounter Details Date Type Department Care Team (Latest Contact Info) Description 03/26/2002 Outpatient Historical [facility] [address] [place] [address] Trell York MD [address] [place] [phone] CERVICALGIA (Primary Dx); ABDOMINAL PAIN UNSPEC SITE Social History Tobacco Use Types Packs/Day Years Used Date Smoking Tobacco: Never Assessed Comments Unknown Sex and Gender Information Value Date Recorded Sex Assigned at Not on file Legal Sex Female 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
--- OUTSIDE RECORDS SUMMARY | 2025-01-26 17:25 | XMS_ITS | Encounter Summary ---
Author Organization [facility] Address [address] [place] [address] Care Team Providers Care Hot Oiler Name Role Phone Areli Gurrola MD Primary Care Provider Encounter Details Date Type Department Care Team (Late st Contact Info) Description 06/27/2001 Outpatient Historical [facility] Gen Spec Surg [address] [address] Renan Martinez MD [address] [place] [address] CHOLELITHIASIS NOS (Primary Dx); SURGERY FOLLOWUP, UNSPEC Social History Tobacco Use Types Packs/Day Years Used Date Smoking Tobacco: Never Assessed Comments Unknown Sex and Gender Information Value Date Recorded Sex Assigned at Not on file Legal 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
--- OUTSIDE RECORDS SUMMARY | 2025-01-26 17:25 | XMS_ITS | Encounter Summary ---
Author Organization [facility] Address [address] [place] [address] Care Team Providers Care Stuffed Casing Tier Name Role Phone Areli Gurrola MD Primary Care Provider Encounter Details Date Type Department Care Team (Latest Contact Info) Description 04/10/2002 Outpatient Historical [facility] End[facility] Andrés [address] [facility] [address] [place] [address] Gildardo Ace MD [address] [place] [phone] ABDOMINAL PAIN EPIGASTRIC (Primary Dx) Social History Tobacco Use Types Packs/Day Years Used Date Smoking Tobacco: Never Assessed Comments Unknown Sex and Gender Information Value Date Recorded Sex Assigned at Not on file Legal Sex Female 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
--- OUTSIDE RECORDS SUMMARY | 2025-01-26 17:25 | XMS_ITS | Encounter Summary ---
Author Organization [facility] Address [address] [place] [address] Care Team Providers Care Fire Control Technician Name Role Phone Areli Gurrola MD Primary Care Provider Encounter Details Date Type Department Care Team (Latest Contact Info) Description 08/25/2002 Outpatient Historical [facility] [address] [place] [address] Trell York MD [address] [place] [phone] INSOMNIA NEC (Primary Dx); OTHER MALAISE AND FATIGUE; NEUROTIC DEPRESSION; CERVICALGIA Social History Tobacco Use Types Packs/Day Years Used Date Smoking Tobacco: Never Assessed Comments Unknown Sex and Gender Information Value Date Recorded Sex Assigned at Not on file Legal Sex Female 3:40 AM LEGAL EXECUTIVE Gender Identity Not on file Sexual [...] documented as of this encounter Care Teams Fire Control Technician Relationship Specialty Start Date End Date Areli Gurrola MD [address] [facility] [place] [address] PCP - General Specialist 08/12/19 documented as of this encounter
--- OUTSIDE RECORDS SUMMARY | 2025-01-26 17:25 | XMS_ITS | Encounter Summary ---
Author Organization [facility] Address [address] [place] [address] Care Team Providers Care Boiler Technician Name Role Phone Areli Gurrola MD Primary Care Provider Encounter Details Date Type Department Care Team (Latest Contact Info) Description 10/01/2002 Outpatient Historical [facility] [address] [place] [address] Trell York MD [address] [place] [phone] ACUTE SINUSITIS NOS (Primary Dx) Social History Tobacco Use Types Packs/Day Years Used Date Smoking Tobacco: Never Assessed Comments Unknown Sex and Gender Information Value Date Recorded Sex Assigned at Not on file Legal Sex Female 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
--- OUTSIDE RECORDS SUMMARY | 2025-01-26 17:25 | XMS_ITS | Encounter Summary ---
Author Organization [facility] Address [address] [place] [address] Care Team Providers Care Manager Training And Development Name Role Phone Areli Gurrola MD Primary Care Provider Encounter Details Date Type Department Care Team (Latest Contact Info) Description 07/09/[address] [facility] [address] [place] [address] Trell York MD [address] [place] [phone] OTHER MALAISE AND FATIGUE (Primary Dx); CERVICALGIA Social History Tobacco Use Types Packs/Day Years Used Date Smoking Tobacco: Never Assessed Comments Unknown Sex and Gender Information Value Date Recorded Sex Assigned at Not on file Legal Sex Female 3:40 AM CLERICAL ADMINISTRATOR Gender Identity Not on file Sexual [...] as of this encounter Care Teams Manager Training And Development Relationship Specialty Start Date End Date Areli Gurrola MD [address] [facility] [place] [address] PCP - General Specialist 08/12/19 documented as of this encounter
[2025-01-26 17:40] VITALS: BP 165/75; PULSE 95; RESP 17; TEMP 37.2; O2SAT 100; BMI 31.8
[2025-01-26 20:06] VITALS: RESP 18; O2SAT 99
--- NOTE | 2025-01-26 20:13 | ECG_ITS ---
[facility]: 2025-01-26 Pat Name: Kay Calles Department: Room: Gender: Female Gearcase Assembler: : 1965 Requested By: Poonam Lozada Order Number: [id number] Parker MD: Tom Ford M.D. Measurements Intervals Howell Rate: 82 P: 41 UT: 176 QRS: 18 QRSD: 79 T: 28 QT: 379 QTc: 443 Interpretive Statements SINUS RHYTHM Non diagnostic T wave changes Compared to ECG 11/26/2024 03:43:56 No significant changes Electronically Signed On 01-27-2025 19:15:51 CDT by Tom Ford M.D. [email or web address]
--- NOTE | 2025-01-26 20:13 | CTR_ITS ---
PROCEDURE INFORMATION: Exam: CTA Abdomen and Pelvis Without And With Contrast Exam date and time: 01/26/2025 8:50 PM Age: 59 years old Clinical indication: Abdominal pain; Generalized; Additional info: Sudden onset abd pain, severe w/radiation to chest, R/O aortic dissection TECHNIQUE: Imaging protocol: Computed tomographic angiography of the abdomen and pelvis without and with contrast. Exam focused on the arteries. 3D rendering (Not supervised by radiologist): MIP and/or 3D reconstructed images were created by the technologist. Radiation optimization: All CT scans at this facility use at least one of these dose optimization techniques: automated exposure control; mA and/or kV adjustment per patient size (includes targeted exams where dose is matched to clinical indication); or iterative reconstruction. Contrast material: OMNI 350; Contrast volume: 100 ml; Contrast route: INTRAVENOUS (IV); COMPARISON: CT abdomen pelvis w con* [id number] 11/24/2024 4:59 PM RADIATION DOSE METRICS: Total DLP (mGy-cm): 1143.88 FINDINGS: Lungs: Normal. No consolidation. Mild left basilar atelectasis present. Coronary arteries: Mild coronary atherosclerosis is present. Pulmonary arteries: No acute pulmonary embolus is identified within the limitations of this non PE protocol study. Aorta: No evidence of acute aortic intramural hematoma, aneurysm, dissection, or penetrating atherosclerotic ulceration. Mild atherosclerotic changes of the thoracic aorta and its major branch vessels is noted. Moderate atherosclerosis of the abdominal aorta and major vessels is branching present. Celiac and mesenteric arteries: No occlusion or significant stenosis. Renal arteries: No occlusion or significant stenosis. Right iliac arteries: No occlusion or significant stenosis. Left iliac arteries: No occlusion or significant stenosis. Veins: Poor characterization of the portal vein secondary to phase of contrast. Question of centralized filling defect (series 9, images [id number]). Left upper quadrant varices are present. Liver: Morphologic changes of cirrhosis including surface nodularity are noted. Stable subcentimeter right yoanna liver observations measuring slightly higher than simple fluid attenuation (series 9, image 131). Stable segment 5 cyst. No new hepatic observations. Gallbladder and biliary ducts: The gallbladder is surgically absent. Bile duct dilatation involving the central and extrahepatic ducts. Smooth tapering to the level of the ampulla is noted. No clear biliary obstruction or stricture is noted. Pancreas: Unremarkable. No mass. No ductal dilation. Spleen: The spleen is enlarged. Adrenal glands: Unremarkable. No mass. Kidneys and ureters: Unremarkable. No solid mass. No hydronephrosis. Stomach and bowel: Unremarkable. No obstruction. No mucosal thickening. Appendix: No evidence of appendicitis. Intraperitoneal space: Medium volume abdominopelvic ascites is present. Lymph nodes: Prominent lymph nodes in the katherine hepatis/pericaval region. Urinary bladder: Unremarkable. No mass. Reproductive: Unremarkable as visualized. Bones/joints: Partially imaged cervical fusion hardware is noted. L3-S1 posterior instrumented spinal fusion without acute complication is noted. A stable chronic appearing L1 compression fracture deformity is present. A stable chronic appearing L3 compression fracture deformity is present. Soft tissues: Soft tissue anasarca is noted. Other findings: Mild atherosclerosis of the pelvic vasculature and its major branching vessels is noted. CT/CT [facility] [id number] IMPRESSION: 1. No evidence of acute aortic intramural hematoma, aneurysm, dissection, or penetrating atherosclerotic ulceration. 2. No acute pulmonary embolus or evidence of acute right heart strain (within the limitations of this non PE protocol study). 3. Findings concerning for new portal venous thrombus. Recommend abdominal sonogram with liver Doppler. 4. Hepatic cirrhosis. 5. Splenomegaly. 6. Intra and extrahepatic bile duct dilatation favored to represent reservoir effect in the post cholecystectomy state. Consider correlation with LFTs/bilirubin. Nonemergent follow-up MRCP can be obtained if clinically indicated. 7. Findings suggestive of reactive periportal/pericaval lymph nodes in the setting of chronic liver disease. 8. Medium volume ascites. 9. Soft tissue anasarca.
[2025-01-26 20:14] LABS: Hematocrit 27.7 % (36-47); Hemoglobin 9.50 g/dL (11.27-16.99); Mean Corpuscular HGB Conc 34.3 g/dL (30-55); Mean Corpuscular Hemoglobin 30.4 pg (27-33); Mean Corpuscular Volume 88.8 fl (85-98); Nucleated Red Blood Cells % 0 %; Platelet Count 88 10^3/cmm (157-399); Red Blood Count 3.12 10^6/uL (3.85-5.65); White Blood Count 4.64 10^3/uL (3.29-11.43)
[2025-01-26 20:28] LABS: Alanine Aminotransferase 24 U/L (0-33); Albumin Level 2.9 g/dL (3.5-5.2); Alkaline Phosphatase 155 U/L (35-105); Anion Gap 11.3 (5-19); Aspartate Amino Transferase 40 U/L (0-32); Blood Urea Nitrogen 9 mg/dL (6-20); Calcium 8.2 mg/dL (8.5-10.5); Carbon Dioxide 23 mmol/L (22-29); Chloride 104 mmol/L (98-107); Creatinine Clr Calc Pharmacy 117.0411; Globulin 2.7 g/dL (1.3-4.6); Glucose 86 mg/dL (65-115); Lipase 75 U/L (13-60); Osmolality Calculated 278 mOsm/kg (285-295); Potassium 3.3 mmol/L (3.5-5.1); Sodium 135 mmol/L (136-145); Total Protein 5.6 g/dL (6.6-8.7)
[2025-01-26 20:39] VITALS: RESP 18
[2025-01-26] MEDS: ondansetron 2 mg/ML SDV 2 mL 4 MG IVP (20:39)
[2025-01-26] MEDS: morphine 4 mg/mL SDV 1 mL IVP ×2 (20:39→23:40)
[2025-01-26] MEDS: iohexol 350 mg/mL 500 mL Btl (per mL) IV (20:50)
[2025-01-26 20:53] LABS: Troponin(5th) Baseline 11 ng/L (0-10)
[2025-01-26 21:24] VITALS: PULSE 105; RESP 18; O2SAT 99
--- NOTE | 2025-01-26 22:07 | W.ED.GENADLT ---
HPI - General Adult General: Chief complaint: Abdominal Pain Stated complaint: abd pain Time Seen by Provider: 01/26/25 19:48 History of Present Illness: 59yo F w/pmhx of nonalcoholic steatohepatitis, alcohol dependence, Belkys-Valenzuela tear, COPD, chronic back pain presents with a chief complaint of sudden onset abdominal pain. Patient states pain is in the upper abdomen with radiation to the chest. She states that she was talking on the phone and her partner heard her cry out. She states that it was a sudden and intense pain like someone stabbed him with a knife. Prior to this she has not been ill and has not experienced fever, shortness of breath, chest pain, syncopal events. She is feeling nauseated but has not vomited. Patient denies any dysuria or hematuria. No diarrhea, constipation or blood in stool. Patient denies any new lower extremity asymmetry though she does have chronic lower extremity edema. She states that she has not drank any alcohol in 2 months. Her surgical history includes hysterectomy and cholecystectomy. Related Data Home Medications ?Medication ?Instructions ?Recorded ?Confirmed albuterol sulfate 90 mcg/actuation 2 puff inhalation Q4H PRN 04/04/24 01/07/25 aerosol inhaler Shortness Of Breath Or Wheezing ziprasidone HCl 20 mg capsule 20 mg PO BID PRN Anxiety 07/23/24 01/07/25 buspirone 5 mg tablet 5 mg PO BID PRN Anxiety 09/11/24 01/07/25 tizanidine 4 mg capsule 4 mg PO Q8H PRN Spasms 09/11/24 01/07/25 epinephrine 0.3 mg/0.3 mL See Rx Instructions .Route .COMPLEX 11/24/24 01/07/25 injection, auto-injector furosemide 20 mg tablet 20 mg PO QAM PRN Edema 11/24/24 01/07/25 nitroglycerin 0.4 mg sublingual See Rx Instructions .Route .COMPLEX 11/24/24 01/07/25 tablet zolpidem 5 mg tablet (Ambien) 4 mg PO DAILY 01/07/25 01/07/25 Previous Rx's ?Medication ?Instructions ?Recorded hydroxyzine HCl 25 mg tablet 25 mg PO Q8H PRN anxiety #10 tabs 07/23/24 multivitamin 1 tab PO DAILY #30 tabs 06/05/25 potassium chloride 10 mEq 10 meq PO DAILY diuretic use #30 10/09/24 tablet,extended release (Klor-Con) tabs ciprofloxacin HCl 500 mg tablet 500 mg PO Q12H #14 tabs 11/26/24 (Cipro) hydroxyzine pamoate 25 mg capsule 25 mg PO BID PRN anxiety #14 caps 01/10/25 Allergies Allergy/AdvReac Type Severity Reaction Status Date / Time venom-wasp Allergy Severe ALGY-Anaphy Verified 01/07/25 10:46 laxis Sulfa (Sulfonamide Allergy Intermediate Hives Verified 01/07/25 10:46 Antibiotics) aspirin Allergy Unknown Unknown Verified 01/07/25 10:46 NSAIDS (Non-Steroidal Allergy Unknown Unknown Verified 01/07/25 10:46 Anti-Inflamma sumatriptan (From Imitrex) Allergy Unknown Unknown Verified 01/07/25 10:46 ibuprofen (From NeoProfen Allergy UNKNOWN Verified 01/07/25 10:46 (ibuprofen lysn)(PF)) metoclopramide (From Reglan) Allergy ALGY-Joint Verified 01/07/25 10:46 Pain bupropion (From Wellbutrin) AdvReac Intermediate ALGY-Rash Verified 01/07/25 10:46 prednisone AdvReac Intermediate Heart rate Verified 01/07/25 10:46 was heavy. Collins sick. Cephalosporins AdvReac Unknown Unknown Verified 01/07/25 10:46 [facility] PFSH: Medical History (Updated 01/27/25 @ 01:30 by Poonam Lozada MD) PTSD (post-traumatic stress disorder) Suicidal ideation Cannabis dependence, episodic use Major depressive disorder, recurrent, severe with psychotic symptoms Nicotine dependence due to vaping tobacco product Vaping nicotine Chronic post-traumatic stress disorder Alcohol use disorder, severe, dependence Psychiatric care Uncontrolled type 2 diabetes with neuropathy Sacroiliitis H/O Belkys-Valenzuela syndrome (~07/2019) EGD at [facility]. EGD 10/26 negative. Chronic back pain Congestive heart failure Diabetes mellitus MONTANO (nonalcoholic steatohepatitis) Borderline personality disorder Bilateral primary osteoarthritis of hip Surgical History History of hysterectomy History of esophagogastroduodenoscopy H/O colonoscopy H/O cervical spine surgery Family History Son Suicide September 2019 Other Cancer Hypertension Psychiatric illness Social History Smoking and tobacco/nicotine status: current every day tobacco/nicotine user cigarettes [ Other cigarette details: When vape breaks she returns to cigarettes] and e-cigarettes E-Cigarette Details: vaporizer device and with nicotine E-cig/vape details: 6000 puffs in each device, uses 3 per month Quit status (tobacco/nicotine): not considering quitting Second hand smoke exposure: Yes Alcohol intake: current Alcohol intake frequency: few times a month Alcohol type: hard liquor Substance/Drug Use: current Substance/Drug use frequency: daily Other substance/drug use details: medical card Adopted: No Caregiver/support person: Yes (cleans and runs errands) Lives independently: Yes Household members: none Housing: Apartment Marital status: Single Number of children: 2 Number of grandchildren: 0 Highest education level completed: Associate Degree: Occupational, Technical, Vocational Program Education level details: [employer] [facility] service: No Current occupational status: disabled Current occupational exposures/hazards: No Pets and animals: Yes Pets & animals: cat(s) Leisure activites: music, games and other Leisure activities details: watch a lot of movies Sexually active: No Do you think of yourself as: Straight/Heterosexual Current gender identity: Female Aparna/Confucianist: Restoration Special aparna needs: No Agree to transfusion: Yes Female Reproductive History: Para: 2 Spontaneous abortions: Yes (10) Physical Exam Narrative: EXAM NARRATIVE: Vital signs were reviewed. Patient is alert and oriented. Patient is breathing comfortably, no increased WOB or accessory muscle use. SpO2 is above 95% on RA. Patient has clear lungs b/l, no rhonchi, wheezing or crackles. No hypotension or tachycardia. Abdomen is soft. She has tenderness in the upper abdomen, no RLQ or LLQ pain. No CVA tenderness w/percussion of the flanks.. Patient is moving all extremities, no deformity or gross injury. No lower extremity asymmetry. Course Vital Signs: Vital signs: Vital Signs Temperature 98.9 F 01/26/25 17:40 Pulse Rate 96 01/27/25 03:32 Respiratory Rate 16 01/27/25 03:32 Blood Pressure 161/70 01/27/25 03:32 Pulse Oximetry 99 01/27/25 03:32 Oxygen Delivery Me thod Room Air 01/26/25 22:55 MDM - General Adult Medical Decision Making 59-year-old female presenting with a chief complaint of sudden onset abdominal pain with radiation to the chest. Differential diagnosis includes, but is not limited to, pancreatitis, gastritis, gastroenteritis, appendicitis, urinary tract infection, pyelonephritis, nephrolithiasis, SBO, diverticulitis, aortic dissection, other. On initial exam, patient is hemodynamically stable and nontoxic appearing. Patient was evaluated with CBC, CMP, lipase, UA and CT abd/pelvis. Patient was treated w/IV morphine for pain. Patient's lab work demonstrates a normal white blood cell count. Patient is anemic but this is comparable to baseline. Patient also has thrombocytopenia but this is chronic per patient. BMP shows normal kidney function and normal anion gap. She has mildly decreased potassium which was replaced orally. Liver function tests are very mildly elevated. She has a normal troponin with a negative delta. Lipase is only mildly elevated. I do not feel that her presentation is clinically consistent with pancreatitis given the sudden onset of her symptoms. UA is positive for nitrites and there is 10-15 white blood cells and 3+ bacteria in the urine. She was treated w/macrobid for UTI. CT shows: IMPRESSION: 1. No evidence of acute aortic intramural hematoma, aneurysm, dissection, or penetrating atherosclerotic ulceration. 2. No acute pulmonary embolus or evidence of acute right heart strain (within the limitations of this non PE protocol study). 3. Findings concerning for new portal venous thrombus. Recommend abdominal sonogram with liver Doppler. 4. Hepatic cirrhosis. 5. Splenomegaly. 6. Intra and extrahepatic bile duct dilatation favored to represent reservoir effect in the post cholecystectomy state. Consider correlation with LFTs/bilirubin. Nonemergent follow-up MRCP can be obtained if clinically indicated. 7. Findings suggestive of reactive periportal/pericaval lymph nodes in the setting of chronic liver disease. 8. Medium volume ascites. 9. Soft tissue anasarca. Discussed care w/Dr. Hutchins at [place] who recommended EGD prior to starting anticoagulation on patient given her h/o alcohol abuse. She is currently not experiencing hematemesis. We do not have GI coverage at our facility to treat abnormal EGD results (such as EV). Patient was transferred for higher level care. Lab Data 01/26/25 20:06 01/26/25 20:06 Radiology Impressions Chest/Abdomen/Pelvis CTA 01/26/25 20:13 IMPRESSION: 1. No evidence of acute aortic intramural hematoma, aneurysm, dissection, or penetrating atherosclerotic ulceration. 2. No acute pulmonary embolus or evidence of acute right heart strain (within the limitations of this non PE protocol study). 3. Findings concerning for new portal venous thrombus. Recommend abdominal sonogram with liver Doppler. 4. Hepatic cirrhosis. 5. Splenomegaly. 6. Intra and extrahepatic bile duct dilatation favored to represent reservoir effect in the post cholecystectomy state. Consider correlation with LFTs/bilirubin. Nonemergent follow-up MRCP can be obtained if clinically indicated. 7. Findings suggestive of reactive periportal/pericaval lymph nodes in the setting of chronic liver disease. 8. Medium volume ascites. 9. Soft tissue anasarca. ADDENDUM: 01/26/252250 The findings were verbally communicated via telephone conference with Poonam Lozada at 10:49 PM CDT on 01/26/2025. The findings were acknowledged and understood. Laboratory Results WBC 4.64 10^3/uL (3.29-11.43) 01/26/25 20: RBC 3.12 10^6/uL (3.85-5.65) L 01/26/25 20:06 Hgb 9.50 g/dL (11.27-16.99) L 01/26/25 20:06 Hct 27.7 % (36-47) L 01/26/25 20: MCV 88.8 fl (85-98) 01/26/25 20: MCH 30.4 pg (27-33) 01/26/25 20: MCHC 34.3 g/dL (30-55) 01/26/25 20: RDW 21.0 % (12.1-15.1) H 01/26/25 20:06 Plt Count 88 10^3/cmm (157-399) L 01/26/25 20: MPV 8.3 fL (7.4-10.4) 01/26/25 20: Neut % (Auto) 67.9 % 01/26/25 20: Lymph % (Auto) 19.4 % 01/26/25 20: Maury % (Auto) 8.0 % 01/26/25 20:06 Eos % (Auto) 3.4 % 01/26/25 20:06 Baso % (Auto) 0.9 % 01/26/25 20:06 Neut # (Auto) 3.15 10^3/uL (1.8-7.7) 01/26/25 20:06 Lymph # (Auto) 0.9 10^3/uL (0.8-4.8) 01/26/25 20:06 Maury # (Auto) 0.4 10^3/uL (0.2-0.9) 01/26/25 20:06 Eos # (Auto) 0.2 10^3/uL (0.0-0.8) 01/26/25 20:06 Baso # (Auto) 0.0 10^3/uL (0.0-0.1) 01/26/25 20:06 Nucleated RBC % (auto) 0 % 01/26/25 20: Nucleated RBCs # 0.0 /100WBC 01/26/25 20:06 Sodium 135 mmol/L (136-145) L 01/26/25 20:06 Potassium 3.3 mmol/L (3.5-5.1) L 01/26/25 20:06 Chloride 104 mmol/L (98-107) 01/26/25 20:06 Carbon Dioxide 23 mmol/L (22-29) 01/26/25 20:06 Anion Gap 11.3 (5-19) 01/26/25 20:06 BUN 9 mg/dL (6-20) 01/26/25 20:06 Creatinine 0.6 mg/dL (0.5-0.9) 01/26/25 20:06 GFR Calculation 103.0 mL/min (90-130) 01/26/25 20:06 Glucose 86 mg/dL (65-115) 01/26/25 20:06 Calculated Osmolality 278 mOsm/kg (285-295) L 01/26/25 20:06 Calcium 8.2 mg/dL (8.5-10.5) L 01/26/25 20:06 Total Bilirubin 2.4 mg/dL (0.15-1.2) H 01/26/25 20:06 AST 40 U/L (0-32) H 01/26/25 20:06 ALT 24 U/L (0-33) 01/26/25 20:06 Alkaline Phosphatase 155 U/L (35-105) H 01/26/25 20:06 Troponin T Baseline 11 ng/L (0-10) H 01/26/25 20:06 Troponin T 120 Minute 10.59 ng/L (0-10) H 01/26/25 22:03 Delta Troponin T -0.41 ABS# (0-10) L 01/26/25 22:03 Total Protein 5.6 g/dL (6.6-8.7) L 01/26/25 20: Albumin 2.9 g/dL (3.5-5.2) L 01/26/25 20: Globulin 2.7 g/dL (1.3-4.6) 01/26/25 20: Lipase 75 U/L (13-60) H 01/26/25 20: Urine Color Yellow (Yellow) 01/26/25: Urine Appearance Clear (CLEAR) 01/26/25: Urine pH 6.0 (5-7) 01/26/25: Ur Specific [place] 1.058 (1.005-1.030) H 01/26/25: Urine Protein 2+ (Negative) A 01/26/25: Urine Glucose (UA) Negative (Normal) 01/26/25: Urine Ketones Negative (Negative) 01/26/25: Urine Blood 2+ (Negative) A 01/26/25: Urine Nitrate Positive (Negative) A 01/26/25: Urine Bilirubin Negative (Negative) 01/26/25: Urine Urobilinogen 1.0 mg/dL (Negative) 01/26/25: Ur Leukocyte Esterase Negative (Negative) 01/26/25: Urine RBC 0-4 /hpf (0-2) H 01/26/25 22:23 Urine WBC 10-15 /hpf (0-5) H 01/26/25 22:23 Ur Squamous Epith Cells 0-4 /hpf (0-5) H 01/26/25 22:23 Amorphous Sediment Not Reportable 01/26/25: Urine Bacteria 3+ /hpf (NONE) H 01/26/25: Urine Mucus Trace /hpf 01/26/25 22:23 All radiology interpretation(s) finalized by discharge Discharge Plan Discharge Patient Disposition: Xfer Short-Term Hosp Clinical Impression: Portal vein thrombosis, Thrombocytopenia Cirrhosis of liver Qualifiers: Hepatic cirrhosis type: alcoholic cirrhosis Ascites presence: without ascites Qualified Code(s): K70.30 - Alcoholic cirrhosis of liver without ascites Anemia Qualifiers: Anemia type: unspecified type Qualified Code(s): D64.9 - Anemia, unspecified Condition: Stable Referrals: Aida Vincent PA [Primary Care Provider, [facility]] Print Language: Somali Coding Level of Care Code ED Garbage Pick Up Worker for Rober Arellano
--- NOTE | 2025-01-26 22:13 | ECG_ITS ---
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 Measurements Intervals [place] Rate: 102 P: 44 ID: [id number] QRS: 13 QRSD: 77 T: 30 QT: 344 QTc: 449 Interpretive Statements SINUS TACHYCARDIA ABNORMAL RHYTHM ECG Compared to ECG 01/26/2025 20:24:54 Sinus rhythm no longer present Electronically Signed On 01-27-2025 19:38:46 CDT by Tom Ford M.D. [email or web address]
[2025-01-26 22:28] LABS: Glucose Urine UA Negative (Normal); Nitrate Urine Positive (Negative)
[2025-01-26 22:33] LABS: Troponin 5 2HR 10.59 ng/L (0-10)
[2025-01-26 22:35] LABS: Troponin 5 2HR Delta -0.41 ABS# (0-10)
[2025-01-26 22:55] VITALS: BP 149/87; PULSE 100; RESP 16; O2SAT 99
[2025-01-26 23:11] LABS: Add Urine Microscopic? YES; Specific Gravity, Urine 1.058 (1.005-1.030); UA Slide Review UA Slide Review Perf
[2025-01-27] VITALS (19 sets, daily range): BP systolic 113–161; BP diastolic 2–98; PULSE 83–102; RESP 16–20; TEMP 36.3–37; O2SAT 94–99; BMI 31.8
[2025-01-27] MEDS: nitrofurantoin SR (BID) 100 mg Capsule PO (00:15)
[2025-01-27] MEDS: morphine 4 mg/mL SDV 1 mL IVP (05:06)
[2025-01-27] MEDS: ondansetron 2 mg/ML SDV 2 mL 4 MG IVP ×2 (05:10→08:44)
--- NOTE | 2025-01-27 07:38 | US_ITS ---
WS: [id number] RIGHT UPPER QUADRANT ULTRASOUND HISTORY: portal vein thrombosis COMPARISON: 10/06/2024 Liver: 14.3 cm in length. Poorly visualized liver due to patient's body habitus. Large amount of shadowing from the GI tract. Liver appears cirrhotic. No mass identified. Portal Vein: Portal vein is not adequately visualized to exclude a portal vein thrombosis. Gallbladder: Prior cholecystectomy. CBD: 0.8 cm Pancreas: Not visualized. Right kidney: 9.4 cm in length. Normal size and echogenicity. No hydronephrosis or mass. Aorta and IVC: Limited. Small amount of ascites adjacent to the liver. US/US liver [id number] IMPRESSION: 1. Limited evaluation of the portal vein. Study is not adequate to exclude por bebo vein thrombosis. 2. Prior cholecystectomy. 3. Mildly dilated common bile duct is on the basis of the cholecystectomy. 4. Cirrhotic liver with a small amount of ascites.
--- NOTE | 2025-01-27 07:54 | ED_ITS ---
HPI - Abdominal Pain 2 General: Chief Complaint: Abdominal Pain Stated Complaint: abd pain Time Seen by Provider: 01/26/25 19:48 History of Present Illness: 59-year-old female care assumed at [facility] e of shift she is awaiting transfer she has a presumed portal vein thrombosis. She has a history of alcoholic liver cirrhosis and previously has had esophageal varices requiring banding about 3 years ago this was done at [facility] in [place]. Patient is n.p.o. since 2 PM yesterday she has had persistent nausea no hematemesis since presenting to the emergency room and none prior. Chart reviewed including labs from yesterday. Also noted patient has mild cystitis urine culture has been initiated. Related Data Home Medications ?Medication ?Instructions ?Recorded ?Confirmed ziprasidone HCl 20 mg capsule 20 mg PO BID PRN Anxiety 07/23/24 01/27/25 buspirone 5 mg tablet 5 mg PO BID PRN Anxiety 08/3101/27/25 tizanidine 4 mg capsule 4 mg PO Q8H PRN Spasms 09/1101/27/25 epinephrine 0.3 mg/0.3 mL See Rx Instructions .Route . COMPLEX 11/24/24 01/27/25 injection, auto-injector nitroglycerin 0.4 mg sublingual See Rx Instructions .R oute .COMPLEX 11/24/24 01/27/25 tablet zolpidem 5 mg tablet (Ambien) 5 mg PO DAILY 01/07/25 1 furosemide 80 mg tablet See Rx Instructions .Route . COMPLEX 01/27/25 01/27/25 dnlfzhvy-dzh-tpukp ac 400 1 tab PO DAILY 01/27/2501/08 mcg-calcium carb 500 mg-vit K1 20 mcg tablet (Women's 50 Plus Multivitamin) spironolactone 100 mg tablet 100 mg PO DAILY 01/27/25 01/27/25 Previous Rx's ?Medication ?Instructions ?Recorded potassium chloride 10 mEq 10 meq PO DAILY diuretic use #30 10/09/24 tablet,extended release (Klor-Con) tabs hydroxyzine pamoate 25 mg capsule 25 mg PO BID PRN anx iety #14 caps 01/10/25 Allergies Allergy/AdvReac Type Severity Reaction Status Date / Time venom-wasp Allergy Severe ALGY-Anaphy Verified 01/07/25 10:46 laxis Sulfa (Sulfonamide Allergy Intermediate Hives Verified 01/07/25 10:46 Antibiotics) aspirin Allergy Unknown Unknown Verified 01/07/25 10:46 NSAIDS (Non-Steroidal Allergy Unknown Unknown Verified 01/07/25 10:46 Anti-Inflamma sumatriptan (From Imitrex) Allergy Unknown Unknown Verified 01/07/25 10:46 ibuprofen (From NeoProfen Allergy UNKNOWN Verified 01/07/25 10:46 (ibuprofen lysn)(PF)) metoclopramide (From Reglan) Allergy ALGY-Joint Verified 01/07/25 10:46 Pain bupropion (From Wellbutrin) AdvReac Intermediate ALGY-Rash Verified 01/07/25 10:46 prednisone AdvReac Intermediate Heart rate Verified 01/07/25 10:46 was heavy. [place] sick. Cephalosporins AdvReac Unknown Unknown Verified 01/07/25 10:46 PFSH ED 2 PFSH: Medical History PTSD (post-traumatic stress disorder) Suicidal ideation Cannabis dependence, episodic use Major depressive disorder, recurrent, severe with psychotic symptoms Nicotine dependence due to vaping tobacco product Vaping nicotine Chronic post-traumatic stress disorder Alcohol use disorder, severe, dependence Psychiatric care Uncontrolled type 2 diabetes with neuropathy Sacroiliitis H/O Belkys-Valenzuela syndrome (~07/2019) EGD at [facility]. EGD 10/26 negative. Chronic back pain Congestive heart failure Diabetes mellitus MONTANO (nonalcoholic steatohepatitis) Borderline personality disorder Bilateral primary osteoarthritis of hip Surgical History History of hysterectomy History of esophagogastroduodenoscopy H/O colonoscopy H/O cervical spine surgery Family History Son Suicide September 2019 Other Cancer Hypertension Psychiatric illness Social History Smoking and tobacco/nicotine status: current every day tobacco/nicotine user cigarettes [ Other cigarette details: When vape breaks she returns to cigarettes] and e-cigarettes E-Cigarette Details: vaporizer device and with nicotine E-cig/vape details: 6000 puffs in each device, uses 3 per month Quit status (tobacco/nicotine): not considering quitting Second hand smoke exposure: Yes Alcohol intake: current Alcohol intake frequency: few times a month Alcohol type: hard liquor Substance/Drug Use: current Substance/Drug use frequency: daily Other substance/drug use details: medical card Adopted: No Caregiver/support person: Yes (cleans and runs errands) Lives independently: Yes Household members: none Housing: Apartment Marital status: Single Number of children: 2 Number of grandchildren: 0 Highest education level completed: Associate Degree: Occupational, Technical, Vocational Program Education level details: [facility] service: No Current occupational status: disabled Current occupational exposures/hazards: No Pets and animals: Yes Pets & animals: cat(s) Leisure activites: music, games and other Leisure activities details: watch a lot of movies Sexually active: No Do you think of yourself as: Straight/Heterosexual Current gender identity: Female Aparna/Jewish: Faith Special [place] needs: No Agree to transfusion: Yes Female Reproductive History: Para: 2 Spontaneous abortions: Yes (10) Physical Exam 2 Const: COMMON NORMALS: no acute distress GENERAL APPEARANCE: cooperative and comfortable ORIENTATION/CONSCIOUSNESS: Yes awake, Yes oriented to person, Yes oriented to place and Yes oriented to time HENMT: COMMON NORMALS: normocephalic, atraumatic and hearing grossly normal bilaterally HEAD & SCALP: normocephalic and atraumatic Neuro: SENSORIUM/ORIENTATION: Yes oriented to person, Yes oriented to place and Yes oriented to time Skin: COMMON NORMALS: no rashes or lesions noted GENERAL SKIN EXAM: no rashes or lesions noted Course 2 Vital Signs: Vital signs: Vital Signs Temperature 97.9 F 01/27/25 14:07 Pulse Rate 87 01/27/25 14:07 Respiratory Rate 20 H 01/27/25 14:07 Blood Pressure 113/85 01/27/25 14:07 Pulse Oximetry 96 01/27/25 14:07 Oxygen Delivery Me thod Room Air 01/27/25 14:07 MDM - Abdominal Pain Medical Decision Making For her cystitis patient given Cipro due to allergies cannot take ceftriaxone. Urine cultures already been initiated. Repeat lab works for including a CBC CMP magnesium and lipase as well as PT and PTT. Reviewed CT from yesterday will order ultrasound liver to further evaluate for portal vein thrombosis as per radiology's recommendation. I discussed Dr. Ace is on-call for surgery. Will consult him patient is currently n.p.o. and has been for nearly 24 hours. Asked him to evaluate patient to see if EGD could be done here if there is no concerning findings we could consider beginning anticoagulation. If it is still felt that the patient needs to be transferred will call contact [facility] for another transfer option patient has been there in the past currently she has been accepted by GI at [facility] but were unsure of the timeline before receiving a bed. CT of the abdomen repeated after conferring with Dr. Greco she did not feel the original CT was convincing for a venous thrombosis. Ultrasound was also not clear. CT of the abdomen with adjustments made to the protocol she felt there is no venous thrombosis. Discussed again with Dr. Cobb he did not feel the patient to be transferred at this point given there is no venous thrombosis and EGD does not show any acute active variceal bleeds. Will admit patient for persistent nausea and vomiting orders written Medical Records I reviewed the patient's medical records. Lab Data I reviewed the patient's lab results. 01/27/25 09:38 01/27/25 09:38 Labs/Radiology: Radiology Impressions Chest/Abdomen/Pelvis CTA 01/26/25 20:13 IMPRESSION: 1. No evidence of acute aortic intramural hematoma, aneurysm, dissection, or penetrating atherosclerotic ulceration. 2. No acute pulmonary embolus or evidence of acute right heart strain (within the limitations of this non PE protocol study). 3. Findings concerning for new portal venous thrombus. Recommend abdominal sonogram with liver Doppler. 4. Hepatic cirrhosis. 5. Splenomegaly. 6. Intra and extrahepatic bile duct dilatation favored to represent reservoir effect in the post cholecystectomy state. Consider correlation with LFTs/bilirubin. Nonemergent follow-up MRCP can be obtained if clinically indicated. 7. Findings suggestive of reactive periportal/pericaval lymph nodes in the setting of chronic liver disease. 8. Medium volume ascites. 9. Soft tissue anasarca. ADDENDUM: 01/26/25 7617 The findings were verbally communicated via telephone conference with Poonam Lozada at 10:49 PM CDT on 01/26/2025. The findings were acknowledged and understood. Liver Ultrasound 01/27/25 07:38 IMPRESSION: 1. Limited evaluation of the portal vein. Study is not adequate to exclude portal vein thrombosis. 2. Prior cholecystectomy. 3. Mildly dilated common bile duct is on the basis of the cholecystectomy. 4. Cirrhotic liver with a small amount of ascites. Abdomen CT 01/27/25 10:35 IMPRESSION: 1. No acute portal vein thrombosis. Small caliber portal vein similar to several prior studies including 11/24/2024 and 02/05/2020. 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 2. Cirrhotic liver. 3. Advanced mesenteric edema and soft tissue anasarca. 4. There is colonic wall thickening greatest involving the cecum which can be noted with portal hypertension. Ischemia may appear similar. There is no free air. 5. Portal venous hypertension with splenomegaly and extensive varices in the LEFT upper abdomen. Notified Gee Huertas DO at 01/27/2025 12:25 PM. Laboratory Results WBC 3.71 10^3/uL (3.29-11.43) 01/27/25 09:38 RBC 3.12 10^6/uL (3.85-5.65) L 01/27/25 09:38 Hgb 9.40 g/dL (11.27-16.99) L 01/27/25 09:38 Hct 29.2 % (36-47) L 01/27/25 09:38 MCV 93.6 fl (85-98) D 01/27/25 09:38 MCH 30.1 pg (27-33) 01/27/25 09:38 MCHC 32.2 g/dL (30-55) D 01/27/25 09:38 RDW 21.0 % (12.1-15.1) H 01/27/25 09:38 Plt Count 84 10^3/cmm (157-399) L 01/27/25 09:38 MPV 9.4 fL (7.4-10.4) 01/27/25 09:38 Neut % (Auto) 73.1 % 01/27/25 09:38 Lymph % (Auto) 15.9 % 01/27/25 09:38 [place] % (Auto) 6.7 % 01/27/25 09:38 Eos % (Auto) 3.2 % 01/27/25 09:38 Baso % (Auto) 0.8 % 01/27/25 09:38 Neut # (Auto) 2.71 10^3/uL (1.8-7.7) 01/27/25 09:38 Lymph # (Auto) 0.6 10^3/uL (0.8-4.8) L 01/27/25 09:38 [place] # (Auto) 0.3 10^3/uL (0.2-0.9) 01/27/25 09:38 Eos # (Auto) 0.1 10^3/uL (0.0-0.8) 01/27/25 09:38 Baso # (Auto) 0.0 10^3/uL (0.0-0.1) 01/27/25 09:38 Nucleated RBC % (auto) 0 % 01/27/25 09:38 Nucleated RBCs # 0.0 /100WBC 01/27/25 09:38 PT 16.00 SECONDS (12.1-14.9) H 01/27/25 09:38 INR 1.19 (0.8-1.2) 01/27/25 09:38 APTT 33.4 SECONDS (23.9-36.7) 01/27/25 09:38 Sodium 138 mmol/L (136-145) 01/27/25 09:38 Potassium 4.0 mmol/L (3.5-5.1) 01/27/25 09:38 Chloride 108 mmol/L (98-107) H 01/27/25 09:38 Carbon Dioxide 19 mmol/L (22-29) L 01/27/25 09:38 Anion Gap 15.0 (5-19) 01/27/25 09:38 BUN 7 mg/dL (6-20) 01/27/25 09:38 Creatinine 0.4 mg/dL (0.5-0.9) L 01/27/25 09:38 GFR Calculation 164.5 mL/min (90-130) H 01/27/25 09:38 Glucose 113 mg/dL (65-115) 01/27/25 09:38 Calculated Osmolality 285 mOsm/kg (285-295) 01/27/25 09:38 Calcium 7.9 mg/dL (8.5-10.5) L 01/27/25 09:38 Magnesium 1.7 mg/dL (1.7-2.3) 01/27/25 09:38 Total Bilirubin 2.9 mg/dL (0.15-1.2) H 01/27/25 09:38 AST 42 U/L (0-32) H 01/27/25 09:38 ALT 24 U/L (0-33) 01/27/25 09:38 Alkaline Phosphatase 133 U/L (35-105) H 01/27/25 09:38 Troponin T Baseline 11 ng/L (0-10) H 01/26/25 20:06 Troponin T 120 Minute 10.59 ng/L (0-10) H 01/26/25 22:03 Delta Troponin T -0.41 ABS# (0-10) L 01/26/25 22:03 Total Protein 5.4 g/dL (6.6-8.7) L 01/27/25 09:38 Albumin 2.8 g/dL (3.5-5.2) L 01/27/25 09:38 Globulin 2.6 g/dL (1.3-4.6) 01/27/25 09:38 Lipase 38 U/L (13-60) 01/27/25 09:38 Urine Color Yellow (Yellow) 01/26/25 22:23 Urine Appearance Clear (CLEAR) 01/26/25 22:23 Urine pH 6.0 (5-7) 01/26/25 22:23 Ur Specific [place] 1.058 (1.005-1.030) H 01/26/25 22:23 Urine Protein 2+ (Negative) A 01/26/25: Urine Glucose (UA) Negative (Normal) 01/26/25 22:23 Urine Ketones Negative (Negative) 01/26/25: Urine Blood 2+ (Negative) A 01/26/25: Urine Nitrate Positive (Negative) A 01/26/25: Urine Bilirubin Negative (Negative) 01/26/25: Urine Urobilinogen 1.0 mg/dL (Negative) 01/26/25 22: Ur Leukocyte Esterase Negative (Negative) 01/26/25: Urine RBC 0-4 /hpf (0-2) H 01/26/25 22:23 Urine WBC 10-15 /hpf (0-5) H 01/26/25 22:23 Ur Squamous Epith Cells 0-4 /hpf (0-5) H 01/26/25 22: Amorphous Sediment Not Reportable 10/20/25 22:23 Urine Bacteria 3+ /hpf (NONE) H 01/26/25 22:23 Urine Mucus Trace /hpf 01/26/25 22:23 All radiology interpretation(s) finalized by discharge Discharge Plan Discharge Patient Disposition: Admitted As Inpatient Admit Provider: Casper Blas Clinical Impression: Portal vein thrombosis, Cirrhosis of liver, Anemia, Thrombocytopenia, Hypokalemia, Cystitis Condition: Stable Coding Level of Care Code ED Long Line Teamster for Rober Arellano
--- NOTE | 2025-01-27 09:13 | PM.CONSULT ---
Providers/Reason For Consult Consulting Physician/Specialty*: Bayron Rosen MD general surgery Reason for Consult*: need for EGD to verify if GI bleeding with anemia Requesting Physician: MD [facility] ER provider Primary Care Provider: Aida Vincent History of Present Illness History of Present Illness Kay Calles is a 59 year old female with history of cirrhosis from drinking but is sober now. With history by her report of Belkys feliciano tear and UGI bleeding but years ago. Now this abdominal pain and thrombus in portal vein seen on CT scan Review of Systems Narrative: Constitutional: denies rigors, singnificant weight gain, increased appetite HEENT: denies chronic cough, blurry vision, excessive tearing, eye pain, flashing lights, odynophagia, painful mastication, change in voice, change in taste, chronic sore throat, hypersalivation Heart: denies racing heart, palpitations, othropnea, PND Lungs: denies hemoptysis, pain with deep inspiration, chronic bronchitis GI: denies hematemesis, hematochezia, dysphagia, tenesmus : denies polyuria, hematuria, painful micturation Musculoskeletal: denies hemarthrosis, Muscle wasting, change in amubation Neuro: denies new onset syncope, dysesthesia, dysequilibrium, ptosis eyelid or face SKin: denies new onset hyperalgia, new rash new cyanosis Endocrine: denies new polyuria, polydipsia, polyphagia, heat intolerance, excessive energy Hem/Onc: denies new petechiae, swollen glands, new excessive epstaxis Psych: denies racing thought Medications/Allergies Home Medications ?Medication ?Instructions ?Recorded ?Confirmed ?Last Taken ?Type albuterol sulfate 90 mcg/actuation 2 puff inhalation Q4H PRN 04/04/24 01/07/25 07/22/24 History aerosol inhaler Shortness Of Breath Or Wheezing hydroxyzine HCl 25 mg tablet 25 mg PO Q8H PRN anxiety #10 tabs 07/23/24 01/07/25 Unknown Rx ziprasidone HCl 20 mg capsule 20 mg PO BID PRN Anxiety 07/23/24 01/07/25 07/22/24 History buspirone 5 mg tablet 5 mg PO BID PRN Anxiety 09/11/24 01/07/25 Unknown History multivitamin 1 tab PO DAILY #30 tabs 09/11/24 01/07/25 Unknown Rx tizanidine 4 mg capsule 4 mg PO Q8H PRN Spasms 09/11/24 01/07/25 Unknown History potassium chloride 10 mEq 10 meq PO DAILY diuretic use #30 10/09/24 01/07/25 Unknown Rx tablet,extended release (Klor-Con) tabs epinephrine 0.3 mg/0.3 mL See Rx Instructions .Route .COMPLEX 11/24/24 01/07/25 Unknown History injection, auto-injector furosemide 20 mg tablet 20 mg PO QAM PRN Edema 11/24/24 01/07/25 Unknown History nitroglycerin 0.4 mg sublingual See Rx Instructions .Route .COMPLEX 11/24/24 01/07/25 Unknown History tablet ciprofloxacin HCl 500 mg tablet 500 mg PO Q12H #14 tabs 11/26/24 01/07/25 Unknown Rx (Cipro) zolpidem 5 mg tablet (Ambien) 4 mg PO DAILY 01/07/25 01/07/25 Unknown History hydroxyzine pamoate 25 mg capsule 25 mg PO BID PRN anxiety #14 caps 01/10/25 Unknown Rx Allergies Allergy/AdvReac Type Severity Reaction Status Date / Time venom-wasp Allergy Severe ALGY-Anaphy Verified 01/07/25 10:46 laxis Sulfa (Sulfonamide Allergy Intermediate Hives Verified 01/07/25 10:46 Antibiotics) aspirin Allergy Unknown Unknown Verified 01/07/25 10:46 NSAIDS (Non-Steroidal Allergy Unknown Unknown Verified 01/07/25 10:46 Anti-Inflamma sumatriptan (From Imitrex) Allergy Unknown Unknown Verified 01/07/25 10:46 ibuprofen (From NeoProfen Allergy UNKNOWN Verified 01/07/25 10:46 (ibuprofen lysn)(PF)) metoclopramide (From Reglan) Allergy ALGY-Joint Verified 01/07/25 10:46 Pain bupropion (From Wellbutrin) AdvReac Intermediate ALGY-Rash Verified 01/07/25 10:46 prednisone AdvReac Intermediate Heart rate Verified 01/07/25 10:46 was heavy. [place] sick. Cephalosporins AdvReac Unknown Unknown Verified 01/07/25 10:46 PFSH Acute PFSH: Medical History (Updated 01/27/25 @ 07:59 by Gee Huertas DO) PTSD (post-traumatic stress disorder) Suicidal ideation Cannabis dependence, episodic use Major depressive disorder, recurrent, severe with psychotic symptoms Nicotine dependence due to vaping tobacco product Vaping nicotine Chronic post-traumatic stress disorder Alcohol use disorder, severe, dependence Psychiatric care Uncontrolled type 2 diabetes with neuropathy Sacroiliitis H/O Belkys-Feliciano syndrome (~07/2019) EGD at [facility]. EGD 10/26 negative. Chronic back pain Congestive heart failure Diabetes mellitus MONTANO (nonalcoholic steatohepatitis) Borderline personality disorder Bilateral primary osteoarthritis of hip Surgical History History of hysterectomy History of esophagogastroduodenoscopy H/O colonoscopy H/O cervical spine surgery Family History Son Suicide September 2019 Other Cancer Hypertension Psychiatric illness Social History Smoking and tobacco/nicotine status: current every day tobacco/nicotine user cigarettes [ Other cigarette details: When vape breaks she returns to cigarettes] and e-cigarettes E-Cigarette Details: vaporizer device and with nicotine E-cig/vape details: 6000 puffs in each device, uses 3 per month Quit status (tobacco/nicotine): not considering quitting Second hand smoke exposure: Yes Alcohol intake: current Alcohol intake frequency: few times a month Alcohol type: hard liquor Substance/Drug Use: current Substance/Drug use frequency: daily Other substance/drug use details: medical card Adopted: No Caregiver/support person: Yes (cleans and runs errands) Lives independently: Yes Household members: none Housing: Apartment Marital status: Single Number of children: 2 Number of grandchildren: 0 Highest education level completed: Associate Degree: Occupational, Technical, Vocational Program 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 service: No Current occupational status: disabled Current occupational exposures/hazards: No Pets and animals: Yes Pets & animals: cat(s) Leisure activites: music, games and other Leisure activities details: watch a lot of movies Sexually active: No Do you think of yourself as: Straight/Heterosexual Current gender identity: Female Aparna/Jainism: Cheondoism Special [place] needs: No Agree to transfusion: Yes Female Reproductive History: Para: 2 Spontaneous abortions: Yes (10) Vitals/I&O/Wt Last Vital Signs Temp 98.9 F 01/26/25 17:40 Pulse 100 01/27/25 07:00 Resp 16 01/27/25 05:16 BP 152/65 01/27/25 07:00 Pulse Ox 99 01/27/25 07:00 O2 Del Method Room Air 01/27/25 07:00 01/26/25 01/27/25 01/27/25 22:59 06:59 14:59 Intake Total 200 / 200 Balance 200 / 200 Weight last 48 hrs Weight 158 lb Physical Exam Narrative: Patient is a well developed well nourished and in NAD and is afebrile with vitals stable and is answering questions appropriately with a normal affect and is alert and oriented x3 HEENT: normocephalic with normal external ears and nonicteric, oral mucosa moist and dentition normal for age, trachea midline with no large masses visualized Heart: RRR, no gallops murmurs or rubs, normal PMI with no thrills Lungs: normal excursions, no loud audible wheezing, no subcutaneous emphysema Abdomen: nondistended, no gross hepatosplenomegaly, no masses, no rigidity or rebound, no loud borborygmi, tender mildly in epigastric area Neuro: nonfocal, MOSQUERA, grossly normal sensation Musculoskeletal: good muscle tone, no fasciculations, normal gait Skin: pink warm and dry with no rashes or ecchymosis Vascular: good radial pulses, no ulceration, less than 2 second capillary refill in hand : deferred Data 01/26/25 20:06 01/26/25 20:06 A&P Assessment and plan 1. Portal vein thrombosis: 2. Anemia: Plan: Request made to get EGD to rule out UGI bleeding for anemia with history of cirrhosis and varices and in distant past with Belkys feliciano tear. She has had some dry heaving. No gross hematemesis or melanotic or bloody stools or black stools. Hgb in 9's. PDMP PDMP Reviewed: Not Reviewed Coding Level of Care Code 56017 Diagnoses Portal vein thrombosis I81 Anemia D64.9
[2025-01-27 09:44] LABS: Hematocrit 29.2 % (36-47); Hemoglobin 9.40 g/dL (11.27-16.99); Mean Corpuscular HGB Conc 32.2 g/dL (30-55); Mean Corpuscular Hemoglobin 30.1 pg (27-33); Mean Corpuscular Volume 93.6 fl (85-98); Nucleated Red Blood Cells % 0 %; Platelet Count 84 10^3/cmm (157-399); Red Blood Count 3.12 10^6/uL (3.85-5.65); White Blood Count 3.71 10^3/uL (3.29-11.43)
--- NOTE | 2025-01-27 09:45 | PC.NURSE ---
PT TAKEN TO GI LAB FROM THE ED.
--- NOTE | 2025-01-27 09:54 | ANES.PREANE2 ---
Pre-Anesthetic Assessment Height/Weight: Height 4 ft 11 in Weight 158 lb Temp Pulse Resp BP Pulse Ox O2 Del Method 98.9 F 88 16 130/67 99 Room Air 01/26/25 17:40 01/27/25 09:00 01/27/25 05:16 01/27/25 09:00 01/27/25 09:00 01/27/25 09:00 Preop Diagnosis: anemia Operation Date: 01/27/25 09:30 Proposed Procedures p EGD(Not Applicable) - Bernardo Rosen MD Was Beta Britney taken within 24 hours: N/A Was Clonidine taken within 24 hours: N/A Social Tobacco Patient states that she quit drinking 4 years ago Exam alert, oriented x 3, clear to auscultation bilaterally and regular rate & rhythm Airway Submandibular: within normal limits Cervical ROM: within normal limits Mallampati: Class III Dentition: false Anesthetic Plan ASA status: 4 Anesthesia: General Other: No prior issues with anesthesia but patient states that she does required a lot of medicine Patient arrived with profuse vomiting for the last day and a half Last episode of emesis was 1 hour ago Prior history of esophageal varices that was treated 3-4 years ago Prior alcoholic, states she was sober for the last 4 years Liver cirrhosis EKG sinus tachycardia Echo 2024 showing EF of 60% with no RWMA Extensive conversation had with patient stating that if she was to have a ruptured esophageal varices during the procedure that resuscitation would be very difficult at this facility. 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 and would like to proceed at this time Plan for GETA with RSI Medications/Allergies Home Medications ?Medication ?Instructions ?Recorded ?Confirmed ?Last Taken ?Type ziprasidone HCl 20 mg capsule 20 mg PO BID PRN Anxiety 07/23/24 01/27/25 01/24/25 History buspirone 5 mg tablet 5 mg PO BID PRN Anxiety 09/11/24 01/27/25 Unknown History tizanidine 4 mg capsule 4 mg PO Q8H PRN Spasms 09/11/24 01/27/25 01/25/25 History potassium chloride 10 mEq 10 meq PO DAILY diuretic use #30 10/09/24 01/27/25 Unknown Rx tablet,extended release (Klor-Con) tabs epinephrine 0.3 mg/0.3 mL See Rx Instructions .Route .COMPLEX 11/24/24 01/27/25 Unknown History injection, auto-injector nitroglycerin 0.4 mg sublingual See Rx Instructions .Route .COMPLEX 11/24/24 01/27/25 Unknown History tablet zolpidem 5 mg tablet (Ambien) 5 mg PO DAILY 01/07/25 01/27/25 Unknown History hydroxyzine pamoate 25 mg capsule 25 mg PO BID PRN anxiety #14 caps 01/10/25 01/27/25 Unknown Rx furosemide 80 mg tablet See Rx Instructions .Route .COMPLEX 01/27/25 01/27/25 01/25/25 History vxwglpau-iqf-hqrob ac 400 1 tab PO DAILY 01/27/25 01/27/25 01/25/25 History mcg-calcium carb 500 mg-vit K1 20 mcg tablet (Women's 50 Plus Multivitamin) spironolactone 100 mg tablet 100 mg PO DAILY 01/27/25 01/27/25 01/25/25 History Allergies Allergy/AdvReac Type Severity Reaction Status Date / Time venom-wasp Allergy Severe ALGY-Anaphy Verified 01/07/25 10:46 laxis Sulfa (Sulfonamide Allergy Intermediate Hives Verified 01/07/25 10:46 Antibiotics) aspirin Allergy Unknown Unknown Verified 01/07/25 10:46 NSAIDS (Non-Steroidal Allergy Unknown Unknown Verified 01/07/25 10:46 Anti-Inflamma sumatriptan (From Imitrex) Allergy Unknown Unknown Verified 01/07/25 10:46 ibuprofen (From NeoProfen Allergy UNKNOWN Verified 01/07/25 10:46 (ibuprofen lysn)(PF)) metoclopramide (From Reglan) Allergy ALGY-Joint Verified 01/07/25 10:46 Pain bupropion (From Wellbutrin) AdvReac Intermediate ALGY-Rash Verified 01/07/25 10:46 prednisone AdvReac Intermediate Heart rate Verified 01/07/25 10:46 was heavy. [place] sick. Cephalosporins AdvReac Unknown Unknown Verified 01/07/25 10:46 [facility] Anesthesia Medical History (Updated 01/27/25 @ 07:59 by Gee Huertas DO) PTSD (post-traumatic stress disorder) Suicidal ideation Cannabis dependence, episodic use Major depressive disorder, recurrent, severe with psychotic symptoms Nicotine dependence due to vaping tobacco product Vaping nicotine Chronic post-traumatic stress disorder Alcohol use disorder, severe, dependence Psychiatric care Uncontrolled type 2 diabetes with neuropathy Sacroiliitis H/O Belkys-Valenzuela syndrome (~07/2019) EGD at [facility]. EGD 10/26 negative. Chronic back pain Congestive heart failure Diabetes mellitus MONTANO (nonalcoholic steatohepatitis) Borderline personality disorder Bilateral primary osteoarthritis of hip Surgical History History of hysterectomy History of esophagogastroduodenoscopy H/O colonoscopy H/O cervical spine surgery Family History Son Suicide September 2019 Other Cancer Hypertension Psychiatric illness Social History Smoking and tobacco/nicotine status: current every day tobacco/nicotine user cigarettes [ Other cigarette details: When vape breaks she returns to cigarettes] and e-cigarettes E-Cigarette Details: vaporizer device and with nicotine E-cig/vape details: 6000 puffs in each device, uses 3 per month Quit status (tobacco/nicotine): not considering quitting Second hand smoke exposure: Yes Alcohol intake: current Alcohol intake frequency: few times a month Alcohol type: hard liquor Substance/Drug Use: current Substance/Drug use frequency: daily Other substance/drug use details: medical card Adopted: No Caregiver/support person: Yes (cleans and runs errands) Lives independently: Yes Household members: none Housing: Apartment Marital status: Single Number of children: 2 Number of grandchildren: 0 Highest education level completed: Associate Degree: Occupational, Technical, Vocational Program 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 service: No Current occupational status: disabled Current occupational exposures/hazards: No Pets and animals: Yes Pets & animals: cat(s) Leisure activites: music, games and other Leisure activities details: watch a lot of movies Sexually active: No Do you think of yourself as: Straight/Heterosexual Current gender identity: Female Aparna/Orthodox: Adventism Special aparna needs: No Agree to transfusion: Yes Female Reproductive History Para: 2 Spontaneous abortions: Yes (10) Data Anesthesia 01/26/25 20:06 01/26/25 20:06 Short CBC 01/26/25 Range/Units 20:06 WBC 4.64 (3.29-11.43) 10^3/uL Hgb 9.50 L (11.27-16.99) g/dL Hct 27.7 L (36-47) % MCV 88.8 (85-98) fl Plt Count 88 L (157-399) 10^3/cmm Neut % (Auto) 67.9 % Neut # (Auto) 3.15 (1.8-7.7) 10^3/uL BMP 01/26/25 20:06 Sodium 135 L Potassium 3.3 L Chloride 104 Carbon Dioxide 23 BUN 9 Creatinine 0.6 Glucose 86 Calcium 8.2 L Cardiac Enzymes 01/26/25 01/26/25 Range/Units 20:06 22:03 Troponin T Baseline 11 H (0-10) ng/L Troponin T 120 Minute 10.59 H (0-10) ng/L Delta Troponin T -0.41 L (0-10) ABS# Liver Function 01/26/25 Range/Units 20:06 Total Bilirubin 2.4 H (0.15-1.2) mg/dL AST 40 H (0-32) U/L ALT 24 (0-33) U/L Alkaline Phosphatase 155 H (35-105) U/L Albumin 2.9 L (3.5-5.2) g/dL Urine 01/26/25 Range/Units 22:23 Urine Color Yellow (Yellow) Urine Appearance Clear (CLEAR) Urine pH 6.0 (5-7) Ur Specific Thornton 1.058 H (1.005-1.030) Urine Protein 2+ A (Negative) Urine Glucose (UA) Negative (Normal) Urine Ketones Negative (Negative) Urine Nitrate Positive A (Negative) Urine Bilirubin Negative (Negative) Ur Leukocyte Esterase Negative (Negative) Urine RBC 0-4 H (0-2) /hpf Urine WBC 10-15 H (0-5) /hpf Cardiac Studies: Echocardiogram 11/26/24 Echocardiogram Ultrasound 11/17/19
[2025-01-27 09:56] LABS: INR 1.19 (0.8-1.2); Prothrombin Time 16.00 SECONDS (12.1-14.9)
[2025-01-27 09:57] LABS: Partial Thromboplastin Time 33.4 SECONDS (23.9-36.7)
[2025-01-27 10:01] LABS: Alanine Aminotransferase 24 U/L (0-33); Albumin Level 2.8 g/dL (3.5-5.2); Alkaline Phosphatase 133 U/L (35-105); Anion Gap 15.0 (5-19); Aspartate Amino Transferase 42 U/L (0-32); Blood Urea Nitrogen 7 mg/dL (6-20); Calcium 7.9 mg/dL (8.5-10.5); Carbon Dioxide 19 mmol/L (22-29); Chloride 108 mmol/L (98-107); Creatinine Clr Calc Pharmacy 175.5617; Globulin 2.6 g/dL (1.3-4.6); Glucose 113 mg/dL (65-115); Lipase 38 U/L (13-60); Magnesium 1.7 mg/dL (1.7-2.3); Osmolality Calculated 285 mOsm/kg (285-295); Potassium 4.0 mmol/L (3.5-5.1); Sodium 138 mmol/L (136-145); Total Protein 5.4 g/dL (6.6-8.7)
--- NOTE | 2025-01-27 10:35 | CT_ITS ---
WS: [id number] CT ABDOMEN WITH CONTRAST HISTORY: eval for portal belle thrombosis Dual phase imaging performed to evaluate the portal vein. Oral contrast has not been provided. Coronal and sagittal reformats are submitted. All CT scans at [facility] use at least one of these dose optimization techniques: automated exposure control; mA and/or kV adjustment per patient size (includes targeted exams where dose is matched to clinical indication); or iterative reconstruction. IV CONTRAST: Omnipaque 350; 100 mL IV. Oral contrast: No DLP: 1096.85 mGy.cm COMPARISON: None available. Lung bases are clear. Mild dependent changes and atelectasis. Very mild cardiomegaly. Small hiatal hernia. Cirrhotic liver. There is improved enhancement of the portal vein as compared to the prior study of 01/26/2025. There is a small caliber portal vein and several venous tributaries consistent with cavernous transformation. Upon reviewing prior exams including 11/24/2024 and 02/05/2020 no change in size of the portal vein. There is no acute thrombus identified. Splenic vein is markedly dilated and tortuous. There are numerous collateral vessels in the LEFT upper quadrant. Hepatic cysts. No enhancing mass within the liver identified. No intrahepatic duct dilatation. Common bile duct is prominent. Prior cholecystectomy. Diffuse advanced soft tissue anasarca and fluid. There is mesenteric edema and ascites. Enlarged spleen measuring 15.1 cm. Advanced atherosclerosis aorta. Stenosis noted in the LEFT common iliac artery. Mild cecal wall thickening. No free air. CT/CT abdomen w con* [id number] IMPRESSION: 1. No acute portal vein thrombosis. Small caliber portal vein similar to sever al prior studies including 11/24/2024 and 02/05/2020. 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 2. Cirrhotic liver. 3. Advanced mesenteric edema and soft tissue anasarca. 4. There is colonic wall thickening greatest involving the cecum which can be noted with portal hypertension. Ischemia may appear similar. There is no free a ir. 5. Portal venous hypertension with splenomegaly and extensive varices in the L EFT upper abdomen. Notified Gee Huertas DO at 01/27/2025 12:25 PM.
--- NOTE | 2025-01-27 11:26 | PC.NURSE ---
[facility] CALLED REQUESTING UPDATE. UPDATED VITALS GIVEN TO [facility]. NO BED ASSIGNMENT AT THIS TIME.
[2025-01-27] MEDS: iohexol 350 mg/mL 500 mL Btl (per mL) IV (11:56)
[2025-01-27] MEDS: midazolam 1 mg/mL INJ 2 mL 2 MG IVP (12:31)
[2025-01-27] MEDS: oxyCODONE 5 mg IR Tab/Cap PO ×2 (15:36→21:24)
--- OUTSIDE RECORDS SUMMARY | 2025-01-27 15:56 | XMS_ITS | Encounter Summary ---
Author Organization [facility] Address [address] [place] [address] Care Team Providers Care Architectural Intern Name Role Phone Areli Gurrola MD Primary Care Provider Encounter Details Date Type Department Care Team (Latest Contact Info) Description 04/23/2000 Outpatient [facility] [address] [place] [address] Trell York MD [address] [place] [phone] Cervicalgia (Primary Dx); Other convulsions Social History Tobacco Use Types Packs/Day Years Used Date Smoking Tobacco: Never Assessed Comments Unknown Sex and Gender Information Value Date Recorded Sex Assigned at Not on file Legal 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
--- OUTSIDE RECORDS SUMMARY | 2025-01-27 15:56 | XMS_ITS | Encounter Summary ---
Author Organization [facility] Address [address] [place] [address] Care Team Providers Care Matcher Leather Parts Name Role Phone Areli Gurrola MD Primary Care Provider Encounter Details Date Type Department Care Team (Latest Contact Info) Description 03/14/[address] [facility] [address] [place] [address] Trell York MD [address] [place] [phone] Unspecified disorder of female genital organs (Primary Dx); Lumbago Social History Tobacco Use Types Packs/Day Years Used Date Smoking Tobacco: Never Assessed Comments Unknown Sex and Gender Information Value Date Recorded Sex Assigned at Not on file Legal Sex Female 3:40 AM TUBULAR RIVETER Gender Identity Not on file Sexual [...] documented as of this encounter Care Teams Matcher Leather Parts Relationship Specialty Start Date End Date Areli Gurrola MD [address] [facility] [address] PCP - General Specialist 08/12/19 documented as of this encounter
--- OUTSIDE RECORDS SUMMARY | 2025-01-27 15:56 | XMS_ITS | Encounter Summary ---
Author Organization [facility] Address [address] Attn: [place] [address] Care Team Providers Care Brush Holder Inspector Name Role Phone Areli Gurrola MD [...] file Legal Sex Female 3:40 AM SENIOR DATA ARCHITECT Gender Identity Not on file Sexual Orientation Not on file documented as of this encounter Plan of Treatment Not on file documented as of this encounter Visit Diagnoses Not on filedocumented in this encounter Additional Health Concerns Infection Onset Date Last Indicated Resolved Time R/O COVID-19 01/31/2020 01/31/2020 02/02/2020 10:3 2 AM CDT documented as of this encounter Care Teams Brush Holder Inspector Relationship Specialty Start Date End Date Areli Gurrola MD [address] [place] [place] [address] PCP - General Specialist 08/12/19 documented as of this encounter
--- OUTSIDE RECORDS SUMMARY | 2025-01-27 15:56 | XMS_ITS | Encounter Summary ---
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 Gender Identity Not on file Sexual Orientation Not on file documented as of this encounter Plan of Treatment Not on file documented as of this encounter Visit Diagnoses Not on filedocumented in this encounter Additional Health Concerns Infection Onset Date Last Indicated Resolved Time R/O COVID-19 01/31/2020 01/31/2020 02/02/2020 10:3 2 AM CDT documented as of this encounter Care Teams Board Certified Behavioral Analyst Relationship Specialty Start Date End Date Areli Gurrola MD [address] [place] [address] PCP - General Specialist 08/12/19 documented as of this encounter
--- OUTSIDE RECORDS SUMMARY | 2025-01-27 15:56 | XMS_ITS | Encounter Summary ---
Author Organization [facility] Address [address] [place] [address] Care Team Providers Care Branch Customer Service Representative Name Role Phone Areli Gurrola MD Primary Care Provider Encounter Details Date Type Department Care Team (Latest Contact Info) Description 02/21/2000 Outpatient Historical [facility] [address] [place] [address] Trell York MD [address] [place] [phone] Stricture of cervix (Primary Dx); Lumbago Social History Tobacco Use Types Packs/Day Years Used Date Smoking Tobacco: Never Assessed Comments Unknown Sex and Gender Information Value Date Recorded Sex Assigned at Not on file Legal Sex Female 3:40 AM HEEL SPRAYER FIRST Gender Identity Not on file Sexual Orientation [...] as of this encounter Care Teams Branch Customer Service Representative Relationship Specialty Start Date End Date Areli Gurrola MD [address] [place] [address] PCP - General Specialist 08/12/19 documented as of this encounter
--- OUTSIDE RECORDS SUMMARY | 2025-01-27 15:56 | XMS_ITS | Encounter Summary ---
Author Organization [facility] Address [address] [facility] Attn: [place] [address] Care Team Providers Care Classroom Technology Coach Name Role Phone Areli Gurrola MD [...] on file Legal Sex Female 3:40 AM SLIVER HANDLER Gender Identity Not on file Sexual Orientation Not on file documented as of this encounter Plan of Treatment Not on file documented as of this encounter Visit Diagnoses Not on filedocumented in this encounter Additional Health Concerns Infection Onset Date Last Indicated Resolved Time R/O COVID-19 01/31/2020 01/31/2020 02/02/2020 10:3 2 AM CDT documented as of this encounter Care Teams Classroom Technology Coach Relationship Specialty Start Date End Date Areli Gurrola MD [address] [place] [place] [address] PCP - General Specialist 08/12/19 documented as of this encounter
--- OUTSIDE RECORDS SUMMARY | 2025-01-27 15:56 | XMS_ITS | Encounter Summary ---
Author Organization [facility] Address [address] [place] [address] Care Team Providers Care Clothing Room Supervisor Name Role Phone Areli Gurrola MD Primary Care Provider Encounter Details Date Type Department Care Team (Latest Contact Info) Description 06/07/2000 Outpatient Historical [facility] [address] [place] [address] Trell York MD [address] [place] [phone] Lumbago (Primary Dx); Open wound of foot except toe(s) alone, without mention of complication Social History Tobacco Use Types Packs/Day Years Used Date Smoking Tobacco: Never Assessed Comments Unknown Sex and Gender Information Value Date Recorded Sex Assigned at Not on file Legal Sex Female 3:40 AM PROCESS SPECIALIST Gender Identity Not on file Sexual [...] documented as of this encounter Care Teams Clothing Room Supervisor Relationship Specialty Start Date End Date Areli Gurrola MD [address] [facility] [place] [address] PCP - General Specialist 08/12/19 documented as of this encounter
--- OUTSIDE RECORDS SUMMARY | 2025-01-27 15:56 | XMS_ITS | Encounter Summary ---
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 SOCIAL WORKER Gender Identity Not on file Sexual Orientation Not on file documented as of this encounter Plan of Treatment Not on file documented as of this encounter Visit Diagnoses Not on filedocumented in this encounter Additional Health Concerns Infection Onset Date Last Indicated Resolved Time R/O COVID-19 01/31/2020 01/31/2020 02/02/2020 10:3 2 AM CDT documented as of this encounter Care Teams Learning Development Specialist Relationship Specialty Start Date End Date Areli Gurrola MD [address] [facility] [place] [address] PCP - General Specialist 08/12/19 documented as of this encounter
--- OUTSIDE RECORDS SUMMARY | 2025-01-27 15:57 | XMS_ITS | Encounter Summary ---
Author Organization [facility] Address [address] [place] [address] Care Team Providers Care Die Equipment Operator Name Role Phone Areli Gurrola MD Primary Care Provider Encounter Details Date Type Department Care Team (Latest Contact Info) Description 04/25/[address] [facility] [address] [place] [address] Trell York MD [address] [place] [phone] ESOPHAGITIS, UNSPECIFIED (Primary Dx); LUMBAGO; SEBACEOUS CYST Social History Tobacco Use Types Packs/Day Years Used Date Smoking Tobacco: Never Assessed Comments Unknown Sex and Gender Information Value Date Recorded Sex Assigned at Not on file Legal Sex Female 3:40 AM BABY COUNSELOR Gender Identity Not on file Sexual [...] documented as of this encounter Care Teams Die Equipment Operator Relationship Specialty Start Date End Date Areli Gurrola MD [address] [place] [address] PCP - General Specialist 08/12/19 documented as of this encounter
--- OUTSIDE RECORDS SUMMARY | 2025-01-27 15:57 | XMS_ITS | Encounter Summary ---
Author Organization [facility] Address [address] [place] [address] Care Team Providers Care Heat And Frost Insulator Helper Name Role Phone Areli Gurrola MD Primary Care Provider Encounter Details Date Type Department Care Team (Latest Contact Info) Description 01/07/2001 Outpatient Historical [facility] [address] [place] [address] Trell York MD [address] [place] [phone] Unspecified disorder of female genital organs (Primary Dx); Cervicalgia; Lumbago Social History Tobacco Use Types Packs/Day Years Used Date Smoking Tobacco: Never Assessed Comments Unknown Sex and Gender Information Value Date Recorded Sex Assigned at Not on file Legal Sex Female 3:40 AM VACCINE MANAGER Gender Identity Not on file Sexual [...] documented as of this encounter Care Teams Heat And Frost Insulator Helper Relationship Specialty Start Date End Date Areli Gurrola MD [address] [place] [address] PCP - General Specialist 08/12/19 documented as of this encounter
--- OUTSIDE RECORDS SUMMARY | 2025-01-27 15:57 | XMS_ITS | Encounter Summary ---
Author Organization [facility] Address [address] [facility] Attn: [place] [address] Care Team Providers Care Router Tender Name Role Phone Arlei Gurrola MD Primary Care Provider Encounter Details Date Type Department Care Team (Late st Contact Info) Description 06/11/2001 Inpatient Historical Renan Martinez MD [address] [place] [address] Social History Tobacco Use Types Packs/Day Years Used Date Smoking Tobacco: Never Assessed Comments Unknown Sex and Gender Information Value Date Recorded Sex Assigned at Not on file Legal Sex Female 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
--- OUTSIDE RECORDS SUMMARY | 2025-01-27 15:57 | XMS_ITS | Encounter Summary ---
Author Organization [facility] Address [address] [place] [address] Care Team Providers Care Cashier Wrapper Name Role Phone Areli Gurrola MD Primary Care Provider Encounter Details Date Type Department Care Team (Latest Contact Info) Description 01/30/2000 Outpatient Historical [facility] [address] [place] [address] Trell York MD [address] [place] [phone] Lumbago (Primary Dx) Social History Tobacco Use Types Packs/Day Years Used Date Smoking Tobacco: Never Assessed Comments Unknown Sex and Gender Information Value Date Recorded Sex Assigned at Not on file Legal Sex Female 3:40 AM 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 INSTRUCTOR Gender Identity Not on file Sexual Orientation Not on file documented as of this encounter Plan of Treatment Not on file documented as of this encounter Visit Diagnoses Diagnosis Lumbago- Primary documented in this encounter Additional Health Concerns Infection Onset Date Last Indicated Resolved Time R/O COVID-19 01/31/2020 01/31/2020 02/02/2020 10:3 2 AM CDT documented as of this encounter Care Teams Cashier Wrapper Relationship Specialty Start Date End Date Areli Gurrola MD [address] [facility] [place] [address] PCP - General Specialist 08/12/19 documented as of this encounter
--- OUTSIDE RECORDS SUMMARY | 2025-01-27 15:57 | XMS_ITS | Encounter Summary ---
Author Organization [facility] Address [address] [place] [address] Care Team Providers Care Skein Dyer Name Role Phone Areli Gurrola MD Primary Care Provider Encounter Details Date Type Department Care Team (Latest Contact Info) Description 03/27/2001 Outpatient Historical [facility] [address] [place] [address] Trell York MD [address] [place] [phone] CERVICALGIA (Primary Dx); NEUROTIC DEPRESSION; LUMBAGO Social History Tobacco Use Types Packs/Day Years Used Date Smoking Tobacco: Never Assessed Comments Unknown Sex and Gender Information Value Date Recorded Sex Assigned at Not on file Legal Sex Female 3:40 AM HEALTH INSURANCE SPECIALIST Gender Identity Not on file Sexual [...] as of this encounter Care Teams Skein Dyer Relationship Specialty Start Date End Date Areli Gurrola MD [address] [place] [address] PCP - General Specialist 08/12/19 documented as of this encounter
--- OUTSIDE RECORDS SUMMARY | 2025-01-27 15:57 | XMS_ITS | Encounter Summary ---
Author Organization [facility] Address [address] [place] [address] Care Team Providers Care Director Of Labor Relations Name Role Phone Areli Gurrola MD Primary Care Provider Encounter Details Date Type Department Care Team (Latest Contact Info) Description 11/13/2000 Outpatient Historical [facility] [address] [place] [address] Trell York MD [address] [place] [phone] Insomnia, unspecified (Primary Dx); Lumbago Social History Tobacco Use Types Packs/Day Years Used Date Smoking Tobacco: Never Assessed Comments Unknown Sex and Gender Information Value Date Recorded Sex Assigned at Not on file Legal Sex Female 3:40 AM DENTAL AIDE Gender Identity Not on file Sexual [...] of this encounter Care Teams Director Of Labor Relations Relationship Specialty Start Date End Date Areli Gurrola MD [address] [place] [address] PCP - General Specialist 08/12/19 documented as of this encounter
--- OUTSIDE RECORDS SUMMARY | 2025-01-27 15:57 | XMS_ITS | Encounter Summary ---
Author Organization [facility] Address [address] [place] [address] Care Team Providers Care Cardroom Drawing Runner Name Role Phone Areli Gurrola MD Primary Care Provider Encounter Details Date Type Department Care Team (Latest Contact Info) Description 08/09/1999 Outpatient Historical [facility] [address] [place] [address] Trell York MD [address] [place] [phone] Stricture of cervix (Primary Dx) Social History Tobacco Use Types Packs/Day Years Used Date Smoking Tobacco: Never Assessed Comments Unknown Sex and Gender Information Value Date Recorded Sex Assigned at Not on file Legal Sex Female 3:40 AM CONCRETE LAYER Gender Identity Not on file Sexual [...] documented as of this encounter Care Teams Cardroom Drawing Runner Relationship Specialty Start Date End Date Areli Gurrola MD [address] [place] [phone] PCP - General Specialist 08/12/19 documented as of this encounter
--- OUTSIDE RECORDS SUMMARY | 2025-01-27 15:57 | XMS_ITS | Encounter Summary ---
Author Organization [facility] Address [address] [place]: [place] [address] Care Team Providers Care School Bus Driver/Teacher Assistant Name Role Phone Areli Gurrola MD Primary Care Provider Encounter Details Date Type Department Care Team (Late st Contact Info) Description 06/06/2001 Outpatient Historical [place], Trell Pascual MD [address] [place] [phone] Social History Tobacco Use Types Packs/Day Years Used Date Smoking Tobacco: Never Assessed Comments Unknown Sex and Gender Information Value Date Recorded Sex Assigned at Not on file Legal Sex Female 3:40 AM OFFICE SERVICES COORDINATOR Gender Identity Not on file Sexual Orientation Not on file documented as of this encounter Plan of Treatment Not on file documented as of this encounter Visit Diagnoses Not on filedocumented in this encounter Additional Health Concerns Infection Onset Date Last Indicated Resolved Time R/O COVID-19 01/31/2020 01/31/2020 02/02/2020 10:3 2 AM CDT documented as of this encounter Care Teams School Bus Driver/Teacher Assistant Relationship Specialty Start Date End Date Areli Gurrola MD [address] [place] [phone] PCP - General Specialist 08/12/19 documented as of this encounter
--- OUTSIDE RECORDS SUMMARY | 2025-01-27 15:57 | XMS_ITS | Encounter Summary ---
Author Organization [facility] Address [address] [place] [address] Care Team Providers Care Bullet Lubricant Mixer Name Role Phone Areli Gurrola MD Primary Care Provider Encounter Details Date Type Department Care Team (Latest Contact Info) Description 12/27/1999 Outpatient Historical [facility] [address] [place] [address] Trell York MD [address] [place] [phone] Migraine without aura, without mention of intractable migraine without mention of status migrainosus (Primary Dx); Lumbago Social History Tobacco Use Types Packs/Day Years Used Date Smoking Tobacco: Never Assessed Comments Unknown Sex and Gender Information Value Date Recorded Sex Assigned at Not on file Legal Sex Female 3:40 AM DOCUMENT REVIEW ATTORNEY Gender Identity Not on file Sexual [...] documented as of this encounter Care Teams Bullet Lubricant Mixer Relationship Specialty Start Date End Date Areli Gurrola MD [address] [place] [address] PCP - General Specialist 08/12/19 documented as of this encounter
--- OUTSIDE RECORDS SUMMARY | 2025-01-27 15:57 | XMS_ITS | Encounter Summary ---
Author Organization [facility] Address [address] Attn: [place] [address] Care Team Providers Care Health And Safety Specialist Name Role Phone Areli Gurrola MD [...] file Legal Sex Female 3:40 AM SUPERVISOR PLATE PASTING Gender Identity Not on file Sexual Orientation Not on file documented as of this encounter Plan of Treatment Not on file documented as of this encounter Visit Diagnoses Not on filedocumented in this encounter Additional Health Concerns Infection Onset Date Last Indicated Resolved Time R/O COVID-19 01/31/2020 01/31/2020 02/02/2020 10:3 2 AM CDT documented as of this encounter Care Teams Health And Safety Specialist Relationship Specialty Start Date End Date Areli Gurrola MD [address] [place] [address] PCP - General Specialist 08/12/19 documented as of this encounter
--- OUTSIDE RECORDS SUMMARY | 2025-01-27 15:57 | XMS_ITS | Encounter Summary ---
Author Organization [facility] Address [address] [place] [address] Care Team Providers Care Campus Supervisor Name Role Phone Areli Gurrola MD Primary Care Provider Encounter Details Date Type Department Care Team (Late st Contact Info) Description 06/11/2001 Outpatient Historical [facility] Gen Spec Surg [address] [place] [address] Social History Tobacco Use Types Packs/Day Years Used Date Smoking Tobacco: Never Assessed Comments Unknown Sex and Gender Information Value Date Recorded Sex Assigned at Not on file Legal Sex Female 3:40 AM SAFETY INTERN Gender Identity Not on file Sexual Orientation Not on file documented as of this encounter Plan of Treatment Not on file documented as of this encounter Visit Diagnoses Not on filedocumented in this encounter Additional Health Concerns Infection Onset Date Last Indicated Resolved Time R/O COVID-19 01/31/2020 01/31/2020 02/02/2020 10:3 2 AM CDT documented as of this encounter Care Teams Campus Supervisor Relationship Specialty Start Date End Date Areli Gurrola MD [address] [place] [address] PCP - General Specialist 08/12/19 documented as of this encounter
--- OUTSIDE RECORDS SUMMARY | 2025-01-27 15:57 | XMS_ITS | Encounter Summary ---
Author Organization [facility] Address [address] [place] [address] Care Team Providers Care Aircraft Fueler Name Role Phone Areli Gurrola MD Primary Care Provider Encounter Details Date Type Department Care Team (Latest Contact Info) Description 10/08/2000 Outpatient Historical [facility] [address] [place] [address] Trell York MD [address] [place] [phone] Sprain and strain of unspecified site of knee and leg (Primary Dx) Social History Tobacco Use Types Packs/Day Years Used Date Smoking Tobacco: Never Assessed Comments Unknown Sex and Gender Information Value Date Recorded Sex Assigned at Not on file Legal Sex Female 3:40 AM CERAMIC DESIGN ENGINEER Gender Identity Not on file [...] as of this encounter Care Teams Aircraft Fueler Relationship Specialty Start Date End Date Areli Gurrola MD [address] [facility] [place] [address] PCP - General Specialist 08/12/19 documented as of this encounter
--- OUTSIDE RECORDS SUMMARY | 2025-01-27 15:57 | XMS_ITS | Encounter Summary ---
Author Organization [facility] Address [address] [place] [address] Care Team Providers Care Assistant Operator Name Role Phone Areli Gurrola MD Primary Care Provider Encounter Details Date Type Department Care Team (Latest Contact Info) Description 07/27/2000 Outpatient Historical [facility] [address] [place] [address] Trell York MD [address] [place] [phone] Unspecified disorder of female genital organs (Primary Dx); Cervicalgia Social History Tobacco Use Types Packs/Day Years Used Date Smoking Tobacco: Never Assessed Comments Unknown Sex and Gender Information Value Date Recorded Sex Assigned at Not on file Legal Sex Female 3:40 AM AIRLINE COUNTER AGENT Gender Identity Not on file Sexual [...] as of this encounter Care Teams Assistant Operator Relationship Specialty Start Date End Date Areli Gurrola MD [address] [place] [address] PCP - General Specialist 08/12/19 documented as of this encounter
--- OUTSIDE RECORDS SUMMARY | 2025-01-27 15:57 | XMS_ITS | Encounter Summary ---
Author Organization [facility] Address [address] [place] [address] Care Team Providers Care Block Greaser Name Role Phone Areli Gurrola MD Primary Care Provider Encounter Details Date Type Department Care Team (Latest Contact Info) Description 12/05/2000 Outpatient Historical [facility] [address] [place] [address] Trell York MD [address] [place] [phone] Lumbago (Primary Dx); Cervicalgia; Pain in joint, pelvic region and thigh Social History Tobacco Use Types Packs/Day Years Used Date Smoking Tobacco: Never Assessed Comments Unknown Sex and Gender Information Value Date Recorded Sex Assigned at Not on file Legal Sex Female 3:40 AM MEDICAL OFFICE PROFESSIONAL INSTRUCTOR Gender Identity Not on file Sexual [...] as of this encounter Care Teams Block Greaser Relationship Specialty Start Date End Date Areli Gurrola MD [address] [place] [address] PCP - General Specialist 08/12/19 documented as of this encounter
--- OUTSIDE RECORDS SUMMARY | 2025-01-27 15:57 | XMS_ITS | Encounter Summary ---
Author Organization [facility] Address [address] [place] [address] Care Team Providers Care Rehabilitation Therapist Name Role Phone Areli Gurrola MD Primary Care Provider Encounter Details Date Type Department Care Team (Latest Contact Info) Description 08/18/1999 Outpatient Historical [facility] Joseph Ramos MD [address] [place] [address] Pain in joint, hand (Primary Dx) Social History Tobacco Use Types Packs/Day Years Used Date Smoking Tobacco: Never Assessed Comments Unknown Sex and Gender Information Value Date Recorded Sex Assigned at Not on file Legal Sex Female 3:40 AM TRANSMISSION DESIGN ENGINEER Gender Identity Not on file [...] documented as of this encounter Care Teams Rehabilitation Therapist Relationship Specialty Start Date End Date Areli Gurrola MD [address] [facility] [place] [address] PCP - General Specialist 08/12/19 documented as of this encounter
--- OUTSIDE RECORDS SUMMARY | 2025-01-27 15:57 | XMS_ITS | Encounter Summary ---
Author Organization [facility] Address [address] [place] [address] Care Team Providers Care Lead Maintenance Technician Name Role Phone Areli Gurrola MD Primary Care Provider Encounter Details Date Type Department Care Team (Latest Contact Info) Description 07/20/1999 Outpatient Historical [facility] Joseph Ramos MD [address] [place] [address] Pain in joint, hand (Primary Dx) Social History Tobacco Use Types Packs/Day Years Used Date Smoking Tobacco: Never Assessed Comments Unknown Sex and Gender Information Value Date Recorded Sex Assigned at Not on file Legal Sex Female 3:40 AM WATER SOFTENER SERVICER AND INSTALLER Gender Identity Not on file Sexual [...] as of this encounter Care Teams Lead Maintenance Technician Relationship Specialty Start Date End Date Areli Gurrola MD [address] [facility] [place] [address] PCP - General Specialist 08/12/19 documented as of this encounter
--- OUTSIDE RECORDS SUMMARY | 2025-01-27 15:58 | XMS_ITS | Encounter Summary ---
Author Organization [facility] Address [address] [place] [address] Care Team Providers Care Rag Sorter Name Role Phone Areli Gurrola MD Primary Care Provider Encounter Details Date Type Department Care Team (Latest Contact Info) Description 06/08/1999 Outpatient Historical [facility] [address] [place] [address] Trell York MD [address] [place] [phone] Carpal tunnel syndrome (Primary Dx); Sprain of neck; Obesity, unspecified Social History Tobacco Use Types Packs/Day Years Used Date Smoking Tobacco: Never Assessed Comments Unknown Sex and Gender Information Value Date Recorded Sex Assigned at Not on file Legal Sex Female 3:40 AM MANAGER DISCOVERY Gender Identity Not on file Sexual Orientation [...] documented as of this encounter Care Teams Rag Sorter Relationship Specialty Start Date End Date Areli Gurrola MD [address] [facility] [place] [address] PCP - General Specialist 08/12/19 documented as of this encounter
--- OUTSIDE RECORDS SUMMARY | 2025-01-27 15:58 | XMS_ITS | Encounter Summary ---
Author Organization [facility] Address [address] [place] [address] Care Team Providers Care Recruitment Internship Name Role Phone Areli Gurrola MD Primary Care Provider Encounter Details Date Type Department Care Team (Latest Contact Info) Description 05/09/1999 Outpatient Historical [facility] [address] [place] [address] Trell York MD [address] [place] [phone] Cervical spinal stenosis (Primary Dx); Contusion of elbow Social History Tobacco Use Types Packs/Day Years Used Date Smoking Tobacco: Never Assessed Comments Unknown Sex and Gender Information Value Date Recorded Sex Assigned at Not on file Legal Sex Female 3:40 AM YARN WINDER Gender Identity Not on file Sexual Orientation [...] documented as of this encounter Care Teams Recruitment Internship Relationship Specialty Start Date End Date Areli Gurrola MD [address] [place] [address] PCP - General Specialist 08/12/19 documented as of this encounter
--- OUTSIDE RECORDS SUMMARY | 2025-01-27 15:58 | XMS_ITS | Encounter Summary ---
Author Organization [facility] Address [address] [place] [address] Care Team Providers Care Logging Engineer Name Role Phone Areli Gurrola MD Primary Care Provider Encounter Details Date Type Department Care Team (Late st Contact Info) Description 05/03/1999 Outpatient Historical [facility] [place], Gibran Lynn MD [address] [facility] [address] [place] [address] Cramp of limb (Primary Dx) Social History Tobacco Use Types Packs/Day Years Used Date Smoking Tobacco: Never Assessed Comments Unknown Sex and Gender Information Value Date Recorded Sex Assigned at Not on file Legal Sex Female 3:40 AM STEREOPLOTTER OPERATOR Gender Identity Not on file Sexual [...] documented as of this encounter Care Teams Logging Engineer Relationship Specialty Start Date End Date Areli Gurrola MD [address] [place] [address] PCP - General Specialist 08/12/19 documented as of this encounter
--- OUTSIDE RECORDS SUMMARY | 2025-01-27 15:58 | XMS_ITS | Encounter Summary ---
Author Organization [facility] Address [address] [place] [address] Care Team Providers Care Primer Inserting Machine Operator Name Role Phone Areli Gurrola MD Primary Care Provider Encounter Details Date Type Department Care Team (Latest Contact Info) Description 05/24/[address] [facility] [address] [place] [address] Trell York MD [address] [place] [phone] Edema (Primary Dx); Lumbago Social History Tobacco Use Types Packs/Day Years Used Date Smoking Tobacco: Never Assessed Comments Unknown Sex and Gender Information Value Date Recorded Sex Assigned at Not on file Legal Sex Female 3:40 AM PULP PILER Gender Identity Not on file Sexual [...] MD [address] [facility] [place] [address] PCP - General Specialist 08/12/19 documented as of this encounter
--- OUTSIDE RECORDS SUMMARY | 2025-01-27 15:58 | XMS_ITS | Encounter Summary ---
Author Organization [facility] Address [address] [place] [address] Care Team Providers Care Freelance Translator Name Role Phone Areli Gurrola MD Primary Care Provider Encounter Details Date Type Department Care Team (Latest Contact Info) Description 06/20/1999 Outpatient Historical [facility] Joseph Ramos MD [address] [place] [address] Pain in joint, hand (Primary Dx) Social History Tobacco Use Types Packs/Day Years Used Date Smoking Tobacco: Never Assessed Comments Unknown Sex and Gender Information Value Date Recorded Sex Assigned at Not on file Legal Sex Female 3:40 AM APPRENTICE COSMETOLOGIST Gender Identity Not on file Sexual Orientation [...] documented as of this encounter Care Teams Freelance Translator Relationship Specialty Start Date End Date Areli Gurrola MD [address] [facility] [place] [address] PCP - General Specialist 08/12/19 documented as of this encounter
--- OUTSIDE RECORDS SUMMARY | 2025-01-27 15:58 | XMS_ITS | Encounter Summary ---
Author Organization [facility] Address [address] Attn: [place] [address] Care Team Providers Care Operations Representative Name Role Phone Areli Gurrola MD Primary Care Provider Encounter Details Date Type Department Care Team (Late st Contact Info) Description 11/16/1999 Outpatient Historical Joseph Ramos MD [address] [place] [address] Social History Tobacco Use Types Packs/Day Years Used Date Smoking Tobacco: Never Assessed Comments Unknown Sex and Gender Information Value Date Recorded Sex Assigned at Not on file Legal Sex Female 3:40 AM GAMEROOM TECHNICIAN Gender Identity Not on file Sexual Orientation Not on file documented as of this encounter Plan of Treatment Not on file documented as of this encounter Visit Diagnoses Not on filedocumented in this encounter Additional Health Concerns Infection Onset Date Last Indicated Resolved Time R/O COVID-19 01/31/2020 01/31/2020 02/02/2020 10:3 2 AM CDT documented as of this encounter Care Teams Operations Representative Relationship Specialty Start Date End Date Areli Gurrola MD [address] [facility] [place] [address] PCP - General Specialist 08/12/19 documented as of this encounter
--- OUTSIDE RECORDS SUMMARY | 2025-01-27 15:58 | XMS_ITS | Encounter Summary ---
Author Organization [facility] Address [address] [place] [address] Care Team Providers Care Crossbar Switch Adjuster Name Role Phone Areli Gurrola MD Primary Care Provider Encounter Details Date Type Department Care Team (Late st Contact Info) Description 05/23/1999 Outpatient Historical [facility] [address] [place] [address] Trell Hines MD [address] [place] [address] Carpal tunnel syndrome (Primary Dx) Social History Tobacco Use Types Packs/Day Years Used Date Smoking Tobacco: Never Assessed Comments Unknown Sex and Gender Information Value Date Recorded Sex Assigned at Not on file Legal Sex Female 3:40 AM STAFF COUNSELOR Gender Identity Not on file Sexual [...] documented as of this encounter Care Teams Crossbar Switch Adjuster Relationship Specialty Start Date End Date Areli Gurrola MD [address] [place] [address] PCP - General Specialist 08/12/19 documented as of this encounter
--- OUTSIDE RECORDS SUMMARY | 2025-01-27 15:58 | XMS_ITS | Encounter Summary ---
Author Organization [facility] Address [address] [place] [address] Care Team Providers Care Roof Cement And Paint Maker Helper Name Role Phone Areli Gurrola MD Primary Care Provider Encounter Details Date Type Department Care Team (Latest Contact Info) Description 06/08/1999 Outpatient Historical [facility] [place], Trell Pascual MD [address] [place] [address] Obesity, unspecified (Primary Dx); Encounter for long-term (current) use of other medications Social History Tobacco Use Types Packs/Day Years Used Date Smoking Tobacco: Never Assessed Comments Unknown Sex and Gender Information Value Date Recorded Sex Assigned at Not on file Legal Sex Female 3:40 AM MORTGAGE CLOSER Gender Identity Not on file Sexual Orientation [...] documented as of this encounter Care Teams Roof Cement And Paint Maker Helper Relationship Specialty Start Date End Date Areli Gurrola MD [address] [facility] [place] [address] PCP - General Specialist 08/12/19 documented as of this encounter
--- OUTSIDE RECORDS SUMMARY | 2025-01-27 15:58 | XMS_ITS | Encounter Summary ---
Author Organization [facility] Address [address] [place] [address] Care Team Providers Care Pharmacy Technician Infusion Name Role Phone Areli Gurrola MD Primary Care Provider Encounter Details Date Type Department Care Team (Latest Contact Info) Description 11/28/1999 Outpatient Historical [facility] [address] [place] [address] Trell York MD [address] [place] [phone] Lumbago (Primary Dx) Social History Tobacco Use Types Packs/Day Years Used Date Smoking Tobacco: Never Assessed Comments Unknown Sex and Gender Information Value Date Recorded Sex Assigned at Not on file Legal Sex Female 3:40 AM MARINE FIREFIGHTER Gender Identity Not on file Sexual Orientation Not on file documented as of this encounter Plan of Treatment Not on file documented as of this encounter Visit Diagnoses Diagnosis Lumbago- Primary documented in this encounter Additional Health Concerns Infection Onset Date Last Indicated Resolved Time R/O COVID-19 01/31/2020 01/31/2020 02/02/2020 10:3 2 AM CDT documented as of this encounter Care Teams Pharmacy Technician Infusion Relationship Specialty Start Date End Date Areli Gurrola MD [address] [facility] [place] [address] PCP - General Specialist 08/12/19 documented as of this encounter
--- OUTSIDE RECORDS SUMMARY | 2025-01-27 15:59 | XMS_ITS | Encounter Summary ---
Author Organization [facility] Address [address] Attn: [place] [id number] Care Team Providers Care Video Game Programmer Name Role Phone Areli Gurrola MD Primary Care Provider Encounter Details Date Type Department Care Team (Late st Contact Info) Description 08/24/1999 Outpatient Historical Joseph Ramos MD [address] [place] [address] Social History Tobacco Use Types Packs/Day Years Used Date Smoking Tobacco: Never Assessed Comments Unknown Sex and Gender Information Value Date Recorded Sex Assigned at Not on file Legal Sex Female 3:40 AM GAMING SURVEILLANCE OBSERVER Gender Identity Not on file Sexual Orientation Not on file documented as of this encounter Plan of Treatment Not on file documented as of this encounter Visit Diagnoses Not on filedocumented in this encounter Additional Health Concerns Infection Onset Date Last Indicated Resolved Time R/O COVID-19 01/31/2020 01/31/2020 02/02/2020 10:3 2 AM CDT documented as of this encounter Care Teams Video Game Programmer Relationship Specialty Start Date End Date Areli Gurrola MD [address] [place] [place] [address] PCP - General Specialist 08/12/19 documented as of this encounter
--- OUTSIDE RECORDS SUMMARY | 2025-01-27 15:59 | XMS_ITS | Encounter Summary ---
Author Organization [facility] Address [address] [place] [address] Care Team Providers Care Satellite Tv Technician Installer Name Role Phone Areli Gurrola MD Primary Care Provider Encounter Details Date Type Department Care Team (Latest Contact Info) Description 09/29/1999 Outpatient Historical [facility] [address] [place] [address] Trell York MD [address] [place] [phone] Obesity, unspecified (Primary Dx); Lumbago Social History Tobacco Use Types Packs/Day Years Used Date Smoking Tobacco: Never Assessed Comments Unknown Sex and Gender Information Value Date Recorded Sex Assigned at Not on file Legal Sex Female 3:40 AM FOREMAN SHIPPING DEPARTMENT Gender Identity Not on file Sexual [...] as of this encounter Care Teams Satellite Tv Technician Installer Relationship Specialty Start Date End Date Areli Gurrola MD [address] [place] [address] PCP - General Specialist 08/12/19 documented as of this encounter
--- OUTSIDE RECORDS SUMMARY | 2025-01-27 15:59 | XMS_ITS | Encounter Summary ---
Author Organization [facility] Address [address] [place] [address] Care Team Providers Care Animal Services Officer Name Role Phone Areli Gurrola MD [...] file Legal Sex Female 3:40 AM SALES ENABLEMENT ANALYST Gender Identity Not on file Sexual Orientation Not on file documented as of this encounter Plan of Treatment Not on file documented as of this encounter Visit Diagnoses Not on filedocumented in this encounter Additional Health Concerns Infection Onset Date Last Indicated Resolved Time R/O COVID-19 01/31/2020 01/31/2020 02/02/2020 10:3 2 AM CDT documented as of this encounter Care Teams Animal Services Officer Relationship Specialty Start Date End Date Areli Gurrola MD [address] [place] [address] PCP - General Specialist 08/12/19 documented as of this encounter
--- OUTSIDE RECORDS SUMMARY | 2025-01-27 15:59 | XMS_ITS | Encounter Summary ---
Author Organization [facility] Address [address] [place] [address] Care Team Providers Care Tester/Lift Trucker Name Role Phone Areli Gurrola MD Primary Care Provider Encounter Details Date Type Department Care Team (Latest Contact Info) Description 10/20/1999 Outpatient Historical [facility] Joseph Ramos MD [address] [place] [address] Carpal tunnel syndrome (Primary Dx) Social History Tobacco Use Types Packs/Day Years Used Date Smoking Tobacco: Never Assessed Comments Unknown Sex and Gender Information Value Date Recorded Sex Assigned at Not on file Legal Sex Female 3:40 AM TIMBER SELECTOR Gender Identity Not on file Sexual Orientation Not on file documented as of this encounter Plan of Treatment Not on file documented as of this encounter Visit Diagnoses Diagnosis Carpal tunnel syndrome- Primary documented in this encounter Additional Health Concerns Infection Onset Date Last Indicated Resolved Time R/O COVID-19 01/31/2020 01/31/2020 02/02/2020 10:3 2 AM CDT documented as of this encounter Care Teams Tester/Lift Trucker Relationship Specialty Start Date End Date Areli Gurrola MD [address] [place] [address] PCP - General Specialist 08/12/19 documented as of this encounter
--- OUTSIDE RECORDS SUMMARY | 2025-01-27 15:59 | XMS_ITS | Encounter Summary ---
Author Organization [facility] Address [address] [place] [address] Care Team Providers Care Silica Dry Press Helper Name Role Phone Areli Gurrola MD Primary Care Provider Encounter Details Date Type Department Care Team (Late st Contact Info) Description 03/28/1999 Outpatient Historical [facility] Social History Tobacco Use Types Packs/Day Years Used Date Smoking Tobacco: Never Assessed Comments Unknown Sex and Gender Information Value Date Recorded Sex Assigned at Not on file Legal Sex Female 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 DEALER Gender Identity Not on file Sexual Orientation Not on file documented as of this encounter Plan of Treatment Not on file documented as of this encounter Visit Diagnoses Not on filedocumented in this encounter Additional Health Concerns Infection Onset Date Last Indicated Resolved Time R/O COVID-19 01/31/2020 01/31/2020 02/02/2020 10:3 2 AM CDT documented as of this encounter Care Teams Silica Dry Press Helper Relationship Specialty Start Date End Date Areli Gurrola MD [address] [place] [address] PCP - General Specialist 08/12/19 documented as of this encounter
--- OUTSIDE RECORDS SUMMARY | 2025-01-27 15:59 | XMS_ITS | Encounter Summary ---
Author Organization [facility] Address [address] [place] [address] Care Team Providers Care Bareback Rider Name Role Phone Areli Gurrola MD Primary Care Provider Encounter Details Date Type Department Care Team (Latest Contact Info) Description 09/01/1999 Outpatient Historical [facility] Joseph Ramos MD [address] [place] [address] Pain in joint, hand (Primary Dx); Follow-up examination following surgery Social History Tobacco Use Types Packs/Day Years Used Date Smoking Tobacco: Never Assessed Comments Unknown Sex and Gender Information Value Date Recorded Sex Assigned at Not on file Legal Sex Female 3:40 AM CLINICAL RESOURCE COORDINATOR Gender Identity Not on file Sexual [...] documented as of this encounter Care Teams Bareback Rider Relationship Specialty Start Date End Date Areli Gurrola MD [address] [place] [address] PCP - General Specialist 08/12/19 documented as of this encounter
--- OUTSIDE RECORDS SUMMARY | 2025-01-27 15:59 | XMS_ITS | Encounter Summary ---
Author Organization [facility] Address [address] Attn: [place] [address] Care Team Providers Care Water Treatment Plant Operator Name Role Phone Areli Gurrola MD Primary Care Provider Encounter Details Date Type Department Care Team (Late st Contact Info) Description 11/10/1999 Outpatient Historical Joseph Ramos MD [address] [place] [address] Social History Tobacco Use Types Packs/Day Years Used Date Smoking Tobacco: Never Assessed Comments Unknown Sex and Gender Information Value Date Recorded Sex Assigned at Not on file Legal Sex Female 3:40 AM REVENUE SETTLEMENTS ADMINISTRATOR Gender Identity Not on file Sexual Orientation Not on file documented as of this encounter Plan of Treatment Not on file documented as of this encounter Visit Diagnoses Not on filedocumented in this encounter Additional Health Concerns Infection Onset Date Last Indicated Resolved Time R/O COVID-19 01/31/2020 01/31/2020 02/02/2020 10:3 2 AM CDT documented as of this encounter Care Teams Water Treatment Plant Operator Relationship Specialty Start Date End Date Areli Gurrola MD [address] [place] [address] PCP - General Specialist 08/12/19 documented as of this encounter
--- OUTSIDE RECORDS SUMMARY | 2025-01-27 15:59 | XMS_ITS | Encounter Summary ---
Author Organization [facility] Address [address] [place] [address] Care Team Providers Care Buttonhole Machine Operator Name Role Phone Areli Gurrola MD Primary Care Provider Encounter Details Date Type Department Care Team (Late st Contact Info) Description 03/25/1999 Outpatient Historical [facility] Social History Tobacco Use Types Packs/Day Years Used Date Smoking Tobacco: Never Assessed Comments Unknown Sex and Gender Information Value Date Recorded Sex Assigned at Not on file Legal Sex Female 3:40 AM SOLVENT PLANT TREATER Gender Identity Not on file Sexual Orientation Not on file documented as of this encounter Plan of Treatment Not on file documented as of this encounter Visit Diagnoses Not on filedocumented in this encounter Additional Health Concerns Infection Onset Date Last Indicated Resolved Time R/O COVID-19 01/31/2020 01/31/2020 02/02/2020 10:3 2 AM CDT documented as of this encounter Care Teams Buttonhole Machine Operator Relationship Specialty Start Date End Date Areli Gurrola MD [address] [place] [address] PCP - General Specialist 08/12/19 documented as of this encounter
--- OUTSIDE RECORDS SUMMARY | 2025-01-27 15:59 | XMS_ITS | Encounter Summary ---
Author Organization [facility] Address [address] [facility] Attn: [place] [address] Care Team Providers Care Telegraph Messenger Name Role Phone Areli Gurrola MD Primary Care Provider Encounter Details Date Type Department Care Team (Late st Contact Info) Description 08/19/1999 Outpatient Historical Joseph Ramos MD [address] [place] [address] Social History Tobacco Use Types Packs/Day Years Used Date Smoking Tobacco: Never Assessed Comments Unknown Sex and Gender Information Value Date Recorded Sex Assigned at Not on file Legal Sex Female 3:40 AM SUPERVISOR DIE CASTING Gender Identity Not on file Sexual Orientation Not on file documented as of this encounter Plan of Treatment Not on file documented as of this encounter Visit Diagnoses Not on filedocumented in this encounter Additional Health Concerns Infection Onset Date Last Indicated Resolved Time R/O COVID-19 01/31/2020 01/31/2020 02/02/2020 10:3 2 AM CDT documented as of this encounter Care Teams Telegraph Messenger Relationship Specialty Start Date End Date Areli Gurrola MD [address] [facility] [place] [address] PCP - General Specialist 08/12/19 documented as of this encounter
--- OUTSIDE RECORDS SUMMARY | 2025-01-27 15:59 | XMS_ITS | Encounter Summary ---
Author Organization [facility] Address [address] [place] [address] Care Team Providers Care Retail Support Associate Name Role Phone Areli Gurrola MD Primary Care Provider Encounter Details Date Type Department Care Team (Latest Contact Info) Description 10/27/1999 Outpatient Historical [facility] [address] [place] [address] Trell York MD [address] [place] [address] Lumbago (Primary Dx) Social History Tobacco Use Types Packs/Day Years Used Date Smoking Tobacco: Never Assessed Comments Unknown Sex and Gender Information Value Date Recorded Sex Assigned at Not on file Legal Sex Female 3:40 AM DETAIL ASSEMBLER Gender Identity Not on file Sexual Orientation Not on file documented as of this encounter Plan of Treatment Not on file documented as of this encounter Visit Diagnoses Diagnosis Lumbago- Primary documented in this encounter Additional Health Concerns Infection Onset Date Last Indicated Resolved Time R/O COVID-19 01/31/2020 01/31/2020 02/02/2020 10:3 2 AM CDT documented as of this encounter Care Teams Retail Support Associate Relationship Specialty Start Date End Date Areli Gurrola MD [address] [facility] [place] [place] [address] PCP - General Specialist 08/12/19 documented as of this encounter
--- OUTSIDE RECORDS SUMMARY | 2025-01-27 15:59 | XMS_ITS | Encounter Summary ---
Author Organization [facility] Address [address] [place] [address] Care Team Providers Care Rn Admit Name Role Phone Areli Gurrola MD Primary Care Provider Encounter Details Date Type Department Care Team (Latest Contact Info) Description 09/08/1999 Outpatient Historical [facility] [address] [place] [address] Trell York MD [address] [place] [phone] Lumbago (Primary Dx); Obesity, unspecified Social History Tobacco Use Types Packs/Day Years Used Date Smoking Tobacco: Never Assessed Comments Unknown Sex and Gender Information Value Date Recorded Sex Assigned at Not on file Legal Sex Female 3:40 AM WRAPPER SIZER Gender Identity Not on file Sexual Orientation [...] as of this encounter Care Teams Rn Admit Relationship Specialty Start Date End Date Areli Gurrola MD [address] [facility] [place] [address] PCP - General Specialist 08/12/19 documented as of this encounter
--- OUTSIDE RECORDS SUMMARY | 2025-01-27 15:59 | XMS_ITS | Clinical Summary ---
Author Organization [facility] Address [address] [place] [address] Care Team Providers Care Splitter Head Name Role Phone Areli Gurrola MD [...] on file Legal Sex Female 3:40 AM STEAM SHOVEL OPERATING ENGINEER Gender Identity Not on file Sexual [...] or Tdap) 03/15/2030 03/15/2020, 11/07/1997, 03/03/[address] [facility] DUAL COMPLETE MCR PPO D-SNP MEDICAID [place] Advance Directives For more information, please contact: [phone] * Full Code (Latest Code Status on File) Date Activated Date Inactivated Comments 02/17/2016 12:44 PM 02/17/2016 4:46 PM Care Teams Splitter Head Relationship Specialty Start Date End Date Areli Gurrola MD [address] [place] [address] PCP - General Specialist 08/12/19
--- OUTSIDE RECORDS SUMMARY | 2025-01-27 16:00 | XMS_ITS | Encounter Summary ---
Author Organization [facility] Address [address] [facility] Attn: [place] [address] Care Team Providers Care Hollow Ware Maker Name Role Phone Areli Gurrola MD [...] file Legal Sex Female 3:40 AM RN FLIGHT Gender Identity Not on file Sexual Orientation Not on file documented as of this encounter Plan of Treatment Not on file documented as of this encounter Visit Diagnoses Not on filedocumented in this encounter Additional Health Concerns Infection Onset Date Last Indicated Resolved Time R/O COVID-19 01/31/2020 01/31/2020 02/02/2020 10:3 2 AM CDT documented as of this encounter Care Teams Hollow Ware Maker Relationship Specialty Start Date End Date Areli Gurrola MD [address] [facility] [place] [address] PCP - General Specialist 08/12/19 documented as of this encounter
--- OUTSIDE RECORDS SUMMARY | 2025-01-27 16:00 | XMS_ITS | Encounter Summary ---
Author Organization [facility] Address [address] [place] [address] Care Team Providers Care Door Builder Name Role Phone Areli Gurrola MD Primary Care Provider Encounter Details Date Type Department Care Team (Latest Contact Info) Description 05/03/1999 Outpatient Historical [facility] [place] [place] [address] Alumno, Gibran Lynn MD [address] [place] [address] Cramp of limb (Primary Dx); Contracture of hand joint Social History Tobacco Use Types Packs/Day Years Used Date Smoking Tobacco: Never Assessed Comments Unknown Sex and Gender Information Value Date Recorded Sex Assigned at Not on file Legal Sex Female 3:40 AM NIGHT SHIFT MANAGER Gender Identity Not on file Sexual [...] documented as of this encounter Care Teams Door Builder Relationship Specialty Start Date End Date Areli Gurrola MD [address] [place] [address] PCP - General Specialist 08/12/19 documented as of this encounter
--- OUTSIDE RECORDS SUMMARY | 2025-01-27 16:00 | XMS_ITS | Encounter Summary ---
Author Organization [facility] Address [address] [place] [address] Care Team Providers Care Clamp Jig Assembler Name Role Phone Areli Gurrola MD Primary Care Provider Encounter Details Date Type Department Care Team (Late st Contact Info) Description 04/14/1999 Outpatient Historical [facility] Social History Tobacco Use Types Packs/Day Years Used Date Smoking Tobacco: Never Assessed Comments Unknown Sex and Gender Information Value Date Recorded Sex Assigned at Not on file Legal Sex Female 3:40 AM SHEET MANUFACTURING SUPERVISOR Gender Identity Not on file Sexual Orientation Not on file documented as of this encounter Plan of Treatment Not on file documented as of this encounter Visit Diagnoses Not on filedocumented in this encounter Additional Health Concerns Infection Onset Date Last Indicated Resolved Time R/O COVID-19 01/31/2020 01/31/2020 02/02/2020 10:3 2 AM CDT documented as of this encounter Care Teams Clamp Jig Assembler Relationship Specialty Start Date End Date Areli Gurrola MD [address] [place] [address] PCP - General Specialist 08/12/19 documented as of this encounter
--- OUTSIDE RECORDS SUMMARY | 2025-01-27 16:00 | XMS_ITS | Encounter Summary ---
Author Organization [facility] Address [address] [place] [address] Care Team Providers Care Garbage Man Name Role Phone Areli Gurrola MD Primary Care Provider Encounter Details Date Type Department Care Team (Latest Contact Info) Description 04/11/2006 Outpatient Historical [facility] [address] [place] [address] Trell York MD [address] [place] [phone] Unspecified Essential Hypertension (Primary Dx); Dysthymic Disorder; Insomnia, Unspecified; Mononeuritis of Unspecified Site Social History Tobacco Use Types Packs/Day Years Used Date Smoking Tobacco: Never Assessed Comments Unknown Sex and Gender Information Value Date Recorded Sex Assigned at Not on file Legal Sex Female 3:40 AM PLAYGROUND SUPERVISOR Gender Identity Not on file Sexual [...] as of this encounter Care Teams Garbage Man Relationship Specialty Start Date End Date Areli Gurrola MD [address] [facility] [place] [address] PCP - General Specialist 08/12/19 documented as of this encounter
--- OUTSIDE RECORDS SUMMARY | 2025-01-27 16:00 | XMS_ITS | Encounter Summary ---
Author Organization [facility] Address [address] [place] [address] Care Team Providers Care Environmental Property Assessor Name Role Phone Areli Gurrola MD Primary Care Provider Encounter Details Date Type Department Care Team (Latest Contact Info) Description 03/23/1999 Outpatient [facility] [place] [place] [address] Alumno, Gibran Lynn MD [address] [place] [address] Unspecified viral infection, in conditions classified elsewhere and of unspecified site (Primary Dx); Sprain and strain of other specified sites of shoulder and upper arm; Tobacco use disorder Social History Tobacco Use Types Packs/Day Years Used Date Smoking Tobacco: Never Assessed Comments Unknown Sex and Gender Information Value Date Recorded Sex Assigned at Not on file Legal Sex Female 3:40 AM FUEL INJECTION SERVICER Gender Identity Not on file Sexual [...] as of this encounter Care Teams Environmental Property Assessor Relationship Specialty Start Date End Date Areli Gurrola MD [address] [place] [address] PCP - General Specialist 08/12/19 documented as of this encounter
--- OUTSIDE RECORDS SUMMARY | 2025-01-27 16:00 | XMS_ITS | Encounter Summary ---
Author Organization [facility] Address [address] [place] [address] Care Team Providers Care Unemployment Benefits Claims Taker Name Role Phone Areli Gurrola MD Primary Care Provider Encounter Details Date Type Department Care Team (Late st Contact Info) Description 03/25/1999 Outpatient Historical [facility] Social History Tobacco Use Types Packs/Day Years Used Date Smoking Tobacco: Never Assessed Comments Unknown Sex and Gender Information Value Date Recorded Sex Assigned at Not on file Legal Sex Female 3:40 AM BOREMATIC OPERATOR Gender Identity Not on file Sexual Orientation Not on file documented as of this encounter Plan of Treatment Not on file documented as of this encounter Visit Diagnoses Not on filedocumented in this encounter Additional Health Concerns Infection Onset Date Last Indicated Resolved Time R/O COVID-19 01/31/2020 01/31/2020 02/02/2020 10:3 2 AM CDT documented as of this encounter Care Teams Unemployment Benefits Claims Taker Relationship Specialty Start Date End Date Areli Gurrola MD [address] [place] [address] PCP - General Specialist 08/12/19 documented as of this encounter
--- OUTSIDE RECORDS SUMMARY | 2025-01-27 16:00 | XMS_ITS | Encounter Summary ---
Author Organization [facility] Address [address] [place] [address] Care Team Providers Care Mason Tender Restoration Labor Name Role Phone Areli Gurrola MD Primary Care Provider Encounter Details Date Type Department Care Team (Late st Contact Info) Description 04/14/1999 Outpatient Historical [facility] Social History Tobacco Use Types Packs/Day Years Used Date Smoking Tobacco: Never Assessed Comments Unknown Sex and Gender Information Value Date Recorded Sex Assigned at Not on file Legal Sex Female 3:40 AM VENDING MACHINE HOST/HOSTESS Gender Identity Not on file Sexual Orientation Not on file documented as of this encounter Plan of Treatment Not on file documented as of this encounter Visit Diagnoses Not on filedocumented in this encounter Additional Health Concerns Infection Onset Date Last Indicated Resolved Time R/O COVID-19 01/31/2020 01/31/2020 02/02/2020 10:3 2 AM CDT documented as of this encounter Care Teams Mason Tender Restoration Labor Relationship Specialty Start Date End Date Areli Gurrola MD [address] [place] [address] PCP - General Specialist 08/12/19 documented as of this encounter
--- OUTSIDE RECORDS SUMMARY | 2025-01-27 16:00 | XMS_ITS | Encounter Summary ---
Author Organization [facility] Address [address] [place] [address] Care Team Providers Care Military Pay Clerk Name Role Phone Areli Gurrola MD Primary Care Provider Encounter Details Date Type Department Care Team (Late st Contact Info) Description 04/11/1999 Outpatient Historical [facility] Social History Tobacco Use Types Packs/Day Years Used Date Smoking Tobacco: Never Assessed Comments Unknown Sex and Gender Information Value Date Recorded Sex Assigned at Not on file Legal Sex Female 3:40 AM DIRECTOR INDUSTRIAL NURSING Gender Identity Not on file Sexual Orientation Not on file documented as of this encounter Plan of Treatment Not on file documented as of this encounter Visit Diagnoses Not on filedocumented in this encounter Additional Health Concerns Infection Onset Date Last Indicated Resolved Time R/O COVID-19 01/31/2020 01/31/2020 02/02/2020 10:3 2 AM CDT documented as of this encounter Care Teams Military Pay Clerk Relationship Specialty Start Date End Date Areli Gurrola MD [address] [place] [address] PCP - General Specialist 08/12/19 documented as of this encounter
--- OUTSIDE RECORDS SUMMARY | 2025-01-27 16:00 | XMS_ITS | Encounter Summary ---
Author Organization [facility] Address [address] [place] [address] Care Team Providers Care Keno Manager Name Role Phone Areli Gurrola MD Primary Care Provider Encounter Details Date Type Department Care Team (Late st Contact Info) Description 03/18/1999 Outpatient Historical HIS [facility] Social History Tobacco Use Types Packs/Day Years Used Date Smoking Tobacco: Never Assessed Comments Unknown Sex and Gender Information Value Date Recorded Sex Assigned at Not on file Legal Sex Female 3:40 AM STEEL BOX TOE INSERTER Gender Identity Not on file Sexual Orientation Not on file documented as of this encounter Plan of Treatment Not on file documented as of this encounter Visit Diagnoses Not on filedocumented in this encounter Additional Health Concerns Infection Onset Date Last Indicated Resolved Time R/O COVID-19 01/31/2020 01/31/2020 02/02/2020 10:3 2 AM CDT documented as of this encounter Care Teams Keno Manager Relationship Specialty Start Date End Date Areli Gurrola MD [address] [place] [address] PCP - General Specialist 08/12/19 documented as of this encounter
--- OUTSIDE RECORDS SUMMARY | 2025-01-27 16:00 | XMS_ITS | Encounter Summary ---
Author Organization [facility] Address [address] [place] [address] Care Team Providers Care Sole Splitter Name Role Phone Areli Gurrola MD Primary Care Provider Encounter Details Date Type Department Care Team (Late st Contact Info) Description 03/16/1999 Outpatient Historical HIS [facility] Social History Tobacco Use Types Packs/Day Years Used Date Smoking Tobacco: Never Assessed Comments Unknown Sex and Gender Information Value Date Recorded Sex Assigned at Not on file Legal Sex Female 3:40 AM DETAIL MANAGER Gender Identity Not on file Sexual Orientation Not on file documented as of this encounter Plan of Treatment Not on file documented as of this encounter Visit Diagnoses Not on filedocumented in this encounter Additional Health Concerns Infection Onset Date Last Indicated Resolved Time R/O COVID-19 01/31/2020 01/31/2020 02/02/2020 10:3 2 AM CDT documented as of this encounter Care Teams Sole Splitter Relationship Specialty Start Date End Date Areli Gurrola MD [address] [place] [address] PCP - General Specialist 08/12/19 documented as of this encounter
--- OUTSIDE RECORDS SUMMARY | 2025-01-27 16:01 | XMS_ITS | Encounter Summary ---
Author Organization [facility] Address [address] [place] [address] Care Team Providers Care Primer Charging Tool Setter Name Role Phone Areli Gurrola MD Primary Care Provider Encounter Details Date Type Department Care Team (Late st Contact Info) Description 04/07/1999 Outpatient Historical HIS [facility] Social History Tobacco Use Types Packs/Day Years Used Date Smoking Tobacco: Never Assessed Comments Unknown Sex and Gender Information Value Date Recorded Sex Assigned at Not on file Legal Sex Female 3:40 AM FRAME REPAIRER Gender Identity Not on file Sexual Orientation Not on file documented as of this encounter Plan of Treatment Not on file documented as of this encounter Visit Diagnoses Not on filedocumented in this encounter Additional Health Concerns Infection Onset Date Last Indicated Resolved Time R/O COVID-19 01/31/2020 01/31/2020 02/02/2020 10:3 2 AM CDT documented as of this encounter Care Teams Primer Charging Tool Setter Relationship Specialty Start Date End Date Areli Gurrola MD [address] [place] [address] PCP - General Specialist 08/12/19 documented as of this encounter
--- OUTSIDE RECORDS SUMMARY | 2025-01-27 16:01 | XMS_ITS | Encounter Summary ---
Author Organization [facility] Address [address] [place] [address] Care Team Providers Care Manager Product Management Name Role Phone Areli Grurola MD Primary Care Provider Encounter Details Date Type Department Care Team (Latest Contact Info) Description 09/09/2003 Outpatient Historical [facility] [address] [place] [address] Trell York MD [address] [place] [phone] CERVICALGIA (Primary Dx) Social History Tobacco Use Types Packs/Day Years Used Date Smoking Tobacco: Never Assessed Comments Unknown Sex and Gender Information Value Date Recorded Sex Assigned at Not on file Legal Sex Female 3:40 AM NEONATAL SOCIAL WORKER Gender Identity Not on file [...] as of this encounter Care Teams Manager Product Management Relationship Specialty Start Date End Date Areli Gurrola MD [address] [facility] [place] [address] PCP - General Specialist 08/12/19 documented as of this encounter
--- OUTSIDE RECORDS SUMMARY | 2025-01-27 16:01 | XMS_ITS | Encounter Summary ---
Author Organization [facility] Address [address] [place] [address] Care Team Providers Care Prototype Technician Name Role Phone Areli Gurrola MD Primary Care Provider Encounter Details Date Type Department Care Team (Latest Contact Info) Description 01/11/2004 Outpatient Historical [facility] [address] [place] [address] Trell York MD [address] [place] [phone] CERVICALGIA (Primary Dx); DYSTHYMIC DISORDER Social History Tobacco Use Types Packs/Day Years Used Date Smoking Tobacco: Never Assessed Comments Unknown Sex and Gender Information Value Date Recorded Sex Assigned at Not on file Legal Sex Female 3:40 AM PIPED BUTTONHOLE MACHINE OPERATOR Gender Identity Not on file [...] documented as of this encounter Care Teams Prototype Technician Relationship Specialty Start Date End Date Areli Gurrola MD [address] [place] [phone] PCP - General Specialist 08/12/19 documented as of this encounter
--- OUTSIDE RECORDS SUMMARY | 2025-01-27 16:01 | XMS_ITS | Encounter Summary ---
Author Organization [facility] Address [address] [place] [address] Care Team Providers Care Smoking Pipe Coater Name Role Phone Areli Gurrola MD Primary Care Provider Encounter Details Date Type Department Care Team (Late st Contact Info) Description 03/31/1999 Outpatient Historical HIS [facility] Social History Tobacco Use Types Packs/Day Years Used Date Smoking Tobacco: Never Assessed Comments Unknown Sex and Gender Information Value Date Recorded Sex Assigned at Not on file Legal Sex Female 3:40 AM CAREGIVER SERVICES HOME Gender Identity Not on file Sexual Orientation Not on file documented as of this encounter Plan of Treatment Not on file documented as of this encounter Visit Diagnoses Not on filedocumented in this encounter Additional Health Concerns Infection Onset Date Last Indicated Resolved Time R/O COVID-19 01/31/2020 01/31/2020 02/02/2020 10:3 2 AM CDT documented as of this encounter Care Teams Smoking Pipe Coater Relationship Specialty Start Date End Date Areli Gurrola MD [address] [place] [address] PCP - General Specialist 08/12/19 documented as of this encounter
--- OUTSIDE RECORDS SUMMARY | 2025-01-27 16:01 | XMS_ITS | Encounter Summary ---
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
--- OUTSIDE RECORDS SUMMARY | 2025-01-27 16:01 | XMS_ITS | Encounter Summary ---
Author Organization [facility] Address [address] [place] [address] Care Team Providers Care Second Hand Paper Machine Name Role Phone Areli Gurrola MD Primary Care Provider Encounter Details Date Type Department Care Team (Late st Contact Info) Description 04/05/1999 Outpatient Historical HIS [facility] Social History Tobacco Use Types Packs/Day Years Used Date Smoking Tobacco: Never Assessed Comments Unknown Sex and Gender Information Value Date Recorded Sex Assigned at Not on file Legal Sex Female 3:40 AM CHASSIS WIRER Gender Identity Not on file Sexual Orientation Not on file documented as of this encounter Plan of Treatment Not on file documented as of this encounter Visit Diagnoses Not on filedocumented in this encounter Additional Health Concerns Infection Onset Date Last Indicated Resolved Time R/O COVID-19 01/31/2020 01/31/2020 02/02/2020 10:3 2 AM CDT documented as of this encounter Care Teams Second Hand Paper Machine Relationship Specialty Start Date End Date Areli Gurrola MD [address] [place] [address] PCP - General Specialist 08/12/19 documented as of this encounter
--- OUTSIDE RECORDS SUMMARY | 2025-01-27 16:01 | XMS_ITS | Encounter Summary ---
Author Organization [facility] Address [address] [place] [address] Care Team Providers Care Supervisor Quilting Name Role Phone Areli Gurrola MD Primary Care Provider Encounter Details Date Type Department Care Team (Late st Contact Info) Description 04/11/1999 Outpatient Historical HIS [facility] Social History Tobacco Use Types Packs/Day Years Used Date Smoking Tobacco: Never Assessed Comments Unknown Sex and Gender Information Value Date Recorded Sex Assigned at Not on file Legal Sex Female 3:40 AM PARTS IDENTIFIER Gender Identity Not on file Sexual Orientation Not on file documented as of this encounter Plan of Treatment Not on file documented as of this encounter Visit Diagnoses Not on filedocumented in this encounter Additional Health Concerns Infection Onset Date Last Indicated Resolved Time R/O COVID-19 01/31/2020 01/31/2020 02/02/2020 10:3 2 AM CDT documented as of this encounter Care Teams Supervisor Quilting Relationship Specialty Start Date End Date Areli Gurrola MD [address] [place] [address] PCP - General Specialist 08/12/19 documented as of this encounter
--- OUTSIDE RECORDS SUMMARY | 2025-01-27 16:01 | XMS_ITS | Encounter Summary ---
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
--- OUTSIDE RECORDS SUMMARY | 2025-01-27 16:01 | XMS_ITS | Encounter Summary ---
Author Organization [facility] Address [address] [place] [address] Care Team Providers Care Procurement Buyer Name Role Phone Areli Gurrola MD Primary Care Provider Encounter Details Date Type Department Care Team (Late st Contact Info) Description 04/07/1999 Outpatient Historical HIS [facility] Social History Tobacco Use Types Packs/Day Years Used Date Smoking Tobacco: Never Assessed Comments Unknown Sex and Gender Information Value Date Recorded Sex Assigned at Not on file Legal Sex Female 3:40 AM QUANTITATIVE CONSULTANT Gender Identity Not on file Sexual Orientation Not on file documented as of this encounter Plan of Treatment Not on file documented as of this encounter Visit Diagnoses Not on filedocumented in this encounter Additional Health Concerns Infection Onset Date Last Indicated Resolved Time R/O COVID-19 01/31/2020 01/31/2020 02/02/2020 10:3 2 AM CDT documented as of this encounter Care Teams Procurement Buyer Relationship Specialty Start Date End Date Areli Gurrola MD [address] [place] [address] PCP - General Specialist 08/12/19 documented as of this encounter
--- OUTSIDE RECORDS SUMMARY | 2025-01-27 16:02 | XMS_ITS | Encounter Summary ---
Author Organization [facility] Address [address] [place] [address] Care Team Providers Care Hydrate Thickener Operator Name Role Phone Areli Gurrola MD Primary Care Provider Encounter Details Date Type Department Care Team (Late st Contact Info) Description 05/14/[address] [facility] [address] [place] [address] Roman Law, DO [address] [place] [phone] ACUTE SINUSITIS NOS (Primary Dx) Social History Tobacco Use Types Packs/Day Years Used Date Smoking Tobacco: Never Assessed Comments Unknown Sex and Gender Information Value Date Recorded Sex Assigned at Not on file Legal Sex Female 3:40 AM DOG POUND ATTENDANT Gender Identity Not on file Sexual [...] documented as of this encounter Care Teams Hydrate Thickener Operator Relationship Specialty Start Date End Date Areli Gurrola MD [address] [place] [address] PCP - General Specialist 08/12/19 documented as of this encounter
--- OUTSIDE RECORDS SUMMARY | 2025-01-27 16:02 | XMS_ITS | Encounter Summary ---
Author Organization [facility] Address [address] [place] [address] Care Team Providers Care Pipeline Systems Operator Name Role Phone Areli Gurrola MD Primary Care Provider Encounter Details Date Type Department Care Team (Latest Contact Info) Description 05/20/2003 Outpatient Historical [facility] [address] [place] [address] Trell York MD [address] [place] [phone] ACUTE BRONCHITIS (Primary Dx) Social History Tobacco Use Types Packs/Day Years Used Date Smoking Tobacco: Never Assessed Comments Unknown Sex and Gender Information Value Date Recorded Sex Assigned at Not on file Legal Sex Female 3:40 AM SHEAR OPERATOR Gender Identity Not on file Sexual Orientation Not on file documented as of this encounter Plan of Treatment Not on file documented as of this encounter Visit Diagnoses Diagnosis Acute bronchitis- Primary documented in this encounter Additional Health Concerns Infection Onset Date Last Indicated Resolved Time R/O COVID-19 01/31/2020 01/31/2020 02/02/2020 10:3 2 AM CDT documented as of this encounter Care Teams Pipeline Systems Operator Relationship Specialty Start Date End Date Areli Gurrola MD [address] [facility] [place] [address] PCP - General Specialist 08/12/19 documented as of this encounter
--- OUTSIDE RECORDS SUMMARY | 2025-01-27 16:02 | XMS_ITS | Encounter Summary ---
Author Organization [facility] Address [address] [place] [address] Care Team Providers Care Secretary Name Role Phone Areli Gurrola MD Primary Care Provider Encounter Details Date Type Department Care Team (Late st Contact Info) Description 06/24/2003 Outpatient Historical [facility] [place] [address] [place] [address] Shayy Landry MD [address] [address] Social History Tobacco Use Types Packs/Day Years Used Date Smoking Tobacco: Never Assessed Comments Unknown Sex and Gender Information Value Date Recorded Sex Assigned at Not on file Legal Sex Female 3:40 AM ENVIRONMENTAL AUDITOR Gender Identity Not on file Sexual Orientation Not on file documented as of this encounter Plan of Treatment Not on file documented as of this encounter Visit Diagnoses Not on filedocumented in this encounter Additional Health Concerns Infection Onset Date Last Indicated Resolved Time R/O COVID-19 01/31/2020 01/31/2020 02/02/2020 10:3 2 AM CDT documented as of this encounter Care Teams Secretary Relationship Specialty Start Date End Date Areli Gurrola MD [address] [facility] [place] [address] PCP - General Specialist 08/12/19 documented as of this encounter
--- OUTSIDE RECORDS SUMMARY | 2025-01-27 16:02 | XMS_ITS | Encounter Summary ---
Author Organization [facility] Address [address] [place] [address] Care Team Providers Care Grinding Supervisor Name Role Phone Areli Gurrola MD Primary Care Provider Encounter Details Date Type Department Care Team (Latest Contact Info) Description 06/26/2003 Outpatient Historical [facility] [address] [place] [address] Jim Matos MD [address] [address] [place] [address] PRECORDIAL PAIN (Primary Dx) Social History Tobacco Use Types Packs/Day Years Used Date Smoking Tobacco: Never Assessed Comments Unknown Sex and Gender Information Value Date Recorded Sex Assigned at Not on file Legal Sex Female 3:40 AM BREAST TRIMMER Gender Identity Not on file Sexual [...] as of this encounter Care Teams Grinding Supervisor Relationship Specialty Start Date End Date Areli Gurrola MD [address] [facility] [place] [address] PCP - General Specialist 08/12/19 documented as of this encounter
--- OUTSIDE RECORDS SUMMARY | 2025-01-27 16:02 | XMS_ITS | Encounter Summary ---
Author Organization [facility] Address [address] [place] [address] Care Team Providers Care Drafter Heating And Ventilating Name Role Phone Areli Gurrola MD Primary Care Provider Encounter Details Date Type Department Care Team (Latest Contact Info) Description 06/22/2003 Outpatient Historical [facility] [address] [place] [address] Trell York MD [address] [place] [phone] CHEST PAIN NOS (Primary Dx); ABN INVOLUN MOVEMENT NEC; CERVICALGIA Social History Tobacco Use Types Packs/Day Years Used Date Smoking Tobacco: Never Assessed Comments Unknown Sex and Gender Information Value Date Recorded Sex Assigned at Not on file Legal Sex Female 3:40 AM INTEGRATION DEVELOPER Gender Identity Not on file Sexual [...] documented as of this encounter Care Teams Drafter Heating And Ventilating Relationship Specialty Start Date End Date Areli Gurrola MD [address] [facility] [place] [address] PCP - General Specialist 08/12/19 documented as of this encounter
--- OUTSIDE RECORDS SUMMARY | 2025-01-27 16:03 | XMS_ITS | Encounter Summary ---
Author Organization [facility] Address [address] [place] [address] Care Team Providers Care Heavy Equipment Rental Manager Name Role Phone Areli Gurrola MD Primary Care Provider Encounter Details Date Type Department Care Team (Latest Contact Info) Description 03/06/[address] [facility] [address] [place] [address] Trell York MD [address] [place] [phone] DENTAL DISORDER NOS (Primary Dx); CERVICALGIA; LUMBAGO; DYSTHYMIC DISORDER Social History Tobacco Use Types Packs/Day Years Used Date Smoking Tobacco: Never Assessed Comments Unknown Sex and Gender Information Value Date Recorded Sex Assigned at Not on file Legal Sex Female 3:40 AM SUPERINTENDENT CONTAINER TERMINAL Gender Identity Not on file Sexual Orientation [...] of this encounter Care Teams Heavy Equipment Rental Manager Relationship Specialty Start Date End Date Areli Gurrola MD [address] [facility] [place] [address] PCP - General Specialist 08/12/19 documented as of this encounter
--- OUTSIDE RECORDS SUMMARY | 2025-01-27 16:03 | XMS_ITS | Encounter Summary ---
Author Organization [facility] Address [address] [place] [address] Care Team Providers Care Foam Charger Name Role Phone Areli Gurrola MD Primary Care Provider Encounter Details Date Type Department Care Team (Latest Contact Info) Description 02/20/2005 [facility]patient [facility] [address] [place] [address] Trell York MD [address] [place] [phone] LUMBAGO (Primary Dx); DYSTHYMIC DISORDER; ANXIETY STATE NOS; CERVICALGIA Social History Tobacco Use Types Packs/Day Years Used Date Smoking Tobacco: Never Assessed Comments Unknown Sex and Gender Information Value Date Recorded Sex Assigned at Not on file Legal Sex Female 3:40 AM SPUD DRILLER Gender Identity Not on file Sexual [...] documented as of this encounter Care Teams Foam Charger Relationship Specialty Start Date End Date Areli Gurrola MD [address] [place] [address] PCP - General Specialist 08/12/19 documented as of this encounter
--- OUTSIDE RECORDS SUMMARY | 2025-01-27 16:03 | XMS_ITS | Encounter Summary ---
Author Organization [facility] Address [address] [place] [address] Care Team Providers Care Information Broker Name Role Phone Areli Gurrola MD Primary Care Provider Encounter Details Date Type Department Care Team (Late st Contact Info) Description 07/07/2004 Outpatient Historical [facility] [address] [place] [address] [address] [place] [address] Social History Tobacco Use Types Packs/Day Years Used Date Smoking Tobacco: Never Assessed Comments Unknown Sex and Gender Information Value Date Recorded Sex Assigned at Not on file Legal Sex Female 3:40 AM FACTORY FOCUS TECHNICIAN Gender Identity Not on file Sexual Orientation Not on file documented as of this encounter Plan of Treatment Not on file documented as of this encounter Visit Diagnoses Not on filedocumented in this encounter Additional Health Concerns Infection Onset Date Last Indicated Resolved Time R/O COVID-19 01/31/2020 01/31/2020 02/02/2020 10:3 2 AM CDT documented as of this encounter Care Teams Information Broker Relationship Specialty Start Date End Date Areli Gurrola MD [address] [place] [address] PCP - General Specialist 08/12/19 documented as of this encounter
--- OUTSIDE RECORDS SUMMARY | 2025-01-27 16:03 | XMS_ITS | Encounter Summary ---
Author Organization [facility] Address [address] [place] [address] Care Team Providers Care Clerical Production Worker Name Role Phone Areli Gurrola MD Primary Care Provider Encounter Details Date Type Department Care Team (Latest Contact Info) Description 07/06/2004 Outpatient Historical [facility] [address] [place] [address] Trell York MD [address] [place] [phone] DYSTHYMIC DISORDER (Primary Dx); BACKACHE NOS; CERVICALGIA Social History Tobacco Use Types Packs/Day Years Used Date Smoking Tobacco: Never Assessed Comments Unknown Sex and Gender Information Value Date Recorded Sex Assigned at Not on file Legal Sex Female 3:40 AM CABLE PULLER Gender Identity Not on file Sexual [...] as of this encounter Care Teams Clerical Production Worker Relationship Specialty Start Date End Date Areli Gurrola MD [address] [facility] [address] PCP - General Specialist 08/12/19 documented as of this encounter
--- OUTSIDE RECORDS SUMMARY | 2025-01-27 16:03 | XMS_ITS | Encounter Summary ---
Author Organization [facility] Address [address] [place] [address] Care Team Providers Care Investor Relations Specialist Name Role Phone Areli Gurrola MD Primary Care Provider Encounter Details Date Type Department Care Team (Latest Contact Info) Description 02/14/1999 Outpatient Historical [facility] [address]-Randy [address] [place] [address] Alumno, Gibran Lynn MD [address] [place] [address] Sprain and strain of other specified sites of shoulder and upper arm (Primary Dx) Social History Tobacco Use Types Packs/Day Years Used Date Smoking Tobacco: Never Assessed Comments Unknown Sex and Gender Information Value Date Recorded Sex Assigned at Not on file Legal Sex Female 3:40 AM CONSULTING SOLUTION DIRECTOR Gender Identity Not on file Sexual [...] documented as of this encounter Care Teams Investor Relations Specialist Relationship Specialty Start Date End Date Areli Gurrola MD [address] [place] [address] PCP - General Specialist 08/12/19 documented as of this encounter
--- OUTSIDE RECORDS SUMMARY | 2025-01-27 16:03 | XMS_ITS | Encounter Summary ---
Author Organization [facility] Address [address] [place] [address] Care Team Providers Care Recreation Superintendent Name Role Phone Areli Gurrola MD Primary Care Provider Encounter Details Date Type Department Care Team (Latest Contact Info) Description 02/14/1999 Outpatient Historical [facility] [place] [address] [place] [address] AlumnoGibran MD [address] [place] [address] Lumbago (Primary Dx) Social History Tobacco Use Types Packs/Day Years Used Date Smoking Tobacco: Never Assessed Comments Unknown Sex and Gender Information Value Date Recorded Sex Assigned at Not on file Legal Sex Female 3:40 AM CHURCH COMMUNICATIONS ADMINISTRATOR Gender Identity Not on file Sexual Orientation Not on file documented as of this encounter Plan of Treatment Not on file documented as of this encounter Visit Diagnoses Diagnosis Lumbago- Primary documented in this encounter Additional Health Concerns Infection Onset Date Last Indicated Resolved Time R/O COVID-19 01/31/2020 01/31/2020 02/02/2020 10:3 2 AM CDT documented as of this encounter Care Teams Recreation Superintendent Relationship Specialty Start Date End Date Areli Gurrola MD [address] [place] [address] PCP - General Specialist 08/12/19 documented as of this encounter
--- OUTSIDE RECORDS SUMMARY | 2025-01-27 16:03 | XMS_ITS | Encounter Summary ---
Author Organization [facility] Address [address] [place] [address] Care Team Providers Care Underwriting Account Representative Name Role Phone Areli Gurrola MD Primary Care Provider Encounter Details Date Type Department Care Team (Latest Contact Info) Description 09/12/2005 Outpatient Historical [facility] [address] [place] [address] Trell Maria Jr., MD [address] [place] [address] Anxiety State, Unspecified (Primary Dx) Social History Tobacco Use Types Packs/Day Years Used Date Smoking Tobacco: Never Assessed Comments Unknown Sex and Gender Information Value Date Recorded Sex Assigned at Not on file Legal Sex Female 3:40 AM CUSTOMER EXPERIENCE RETAIL CLERK Gender Identity Not on file Sexual [...] documented as of this encounter Care Teams Underwriting Account Representative Relationship Specialty Start Date End Date Areli Gurrola MD [address] [place] [address] PCP - General Specialist 08/12/19 documented as of this encounter
--- OUTSIDE RECORDS SUMMARY | 2025-01-27 16:03 | XMS_ITS | Encounter Summary ---
Author Organization [facility] Address [address] Attn: [place] [phone] Care Team Providers Care Diet Tech Name Role Phone Areli Gurrola MD Primary Care Provider Encounter Details Date Type Department Care Team (Late st Contact Info) Description 03/12/1999 Outpatient Historical Alumno, Gibran Lynn MD [address] [facility] [address] [place] [address] Social History Tobacco Use Types Packs/Day Years Used Date Smoking Tobacco: Never Assessed Comments Unknown Sex and Gender Information Value Date Recorded Sex Assigned at Not on file Legal Sex Female 3:40 AM NETWORK SECURITY CONSULTANT Gender Identity Not on file Sexual Orientation Not on file documented as of this encounter Plan of Treatment Not on file documented as of this encounter Visit Diagnoses Not on filedocumented in this encounter Additional Health Concerns Infection Onset Date Last Indicated Resolved Time R/O COVID-19 01/31/2020 01/31/2020 02/02/2020 10:3 2 AM CDT documented as of this encounter Care Teams Diet Tech Relationship Specialty Start Date End Date Areli Gurrola MD [address] [facility] [place] [address] PCP - General Specialist 08/12/19 documented as of this encounter
--- OUTSIDE RECORDS SUMMARY | 2025-01-27 16:03 | XMS_ITS | Encounter Summary ---
Author Organization [facility] Address [address] [place] [address] Care Team Providers Care Geographical Historian Name Role Phone Areli Gurrola MD Primary Care Provider Encounter Details Date Type Department Care Team (Latest Contact Info) Description 06/04/1998 Outpatient Historical [facility] PLASTIC SURGERY Charli Perez MD NO ADDRESS ON FILE Open wound of forehead (Primary Dx) Social History Tobacco Use Types Packs/Day Years Used Date Smoking Tobacco: Never Assessed Comments Unknown Sex and Gender Information Value Date Recorded Sex Assigned at Not on file Legal Sex Female 3:40 AM AUTOMOTIVE INTERNET SALES CONSULTANT Gender Identity Not on file Sexual [...] documented as of this encounter Care Teams Geographical Historian Relationship Specialty Start Date End Date Areli Gurrola MD [address] [place] [address] PCP - General Specialist 08/12/19 documented as of this encounter
--- OUTSIDE RECORDS SUMMARY | 2025-01-27 16:03 | XMS_ITS | Encounter Summary ---
Author Organization [facility] Address [address] [place] [address] Care Team Providers Care Forest Technician Name Role Phone Areli Gurrola MD Primary Care Provider Encounter Details Date Type Department Care Team (Latest Contact Info) Description 04/25/2004 Outpatient Historical [facility] [address] [place] [address] Trell York MD [address] [place] [phone] DYSTHYMIC DISORDER (Primary Dx); LUMBAGO; Pain in limb; Inflamed seborr keratos Social History Tobacco Use Types Packs/Day Years Used Date Smoking Tobacco: Never Assessed Comments Unknown Sex and Gender Information Value Date Recorded Sex Assigned at Not on file Legal Sex Female 3:40 AM INFANT AND TODDLER TEACHER Gender Identity Not on file Sexual [...] as of this encounter Care Teams Forest Technician Relationship Specialty Start Date End Date Areli Gurrola MD [address] [facility] [place] [address] PCP - General Specialist 08/12/19 documented as of this encounter
--- OUTSIDE RECORDS SUMMARY | 2025-01-27 16:03 | XMS_ITS | Encounter Summary ---
Author Organization [facility] Address [address] [place] [address] Care Team Providers Care Laundry Clerk Name Role Phone Areli Gurrola MD Primary Care Provider Encounter Details Date Type Department Care Team (Latest Contact Info) Description 07/07/2004 Outpatient Historical [facility] Imaging Services [place] [address] 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
--- OUTSIDE RECORDS SUMMARY | 2025-01-27 16:03 | XMS_ITS | Encounter Summary ---
Author Organization [facility] Address [address] [place] [address] Care Team Providers Care Mosquito Sprayer Name Role Phone Areli Gurrola MD Primary Care Provider Encounter Details Date Type Department Care Team (Latest Contact Info) Description 03/09/1999 Outpatient [facility] [place] [place] [address] Alumno, Gibran Lynn MD [address] [place] [address] Sprain and strain of unspecified site of shoulder and upper arm (Primary Dx); Backache, unspecified Social History Tobacco Use Types Packs/Day Years Used Date Smoking Tobacco: Never Assessed Comments Unknown Sex and Gender Information Value Date Recorded Sex Assigned at Not on file Legal Sex Female 3:[address] Gender Identity Not on file Sexual Orientation [...] documented as of this encounter Care Teams Mosquito Sprayer Relationship Specialty Start Date End Date Areli Gurrola MD [address] [place] [address] PCP - General Specialist 08/12/19 documented as of this encounter
--- OUTSIDE RECORDS SUMMARY | 2025-01-27 16:03 | XMS_ITS | Encounter Summary ---
Author Organization [facility] Address [address] [place] [address] Care Team Providers Care Hosiery Looper Name Role Phone Areli Gurrola MD Primary Care Provider Encounter Details Date Type Department Care Team (Latest Contact Info) Description 09/14/2004 Outpatient Historical [facility] [address] [place] [address] Trell York MD [address] [place] [phone] DYSTHYMIC DISORDER (Primary Dx); CERVICALGIA; LUMBAGO Social History Tobacco Use Types Packs/Day Years Used Date Smoking Tobacco: Never Assessed Comments Unknown Sex and Gender Information Value Date Recorded Sex Assigned at Not on file Legal Sex Female 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
--- OUTSIDE RECORDS SUMMARY | 2025-01-27 16:03 | XMS_ITS | Clinical Summary ---
Author Organization [facility] Address [address] [place] [address] Care Team Providers Care Technical Sales Specialist Name Role Phone Unavailable Primary Care Provider [...] Department Care Team Description 01/14/2025 Orders Only [facility] Gastroenterology[address] [place] [address] Mirta Means DO Iron deficiency anemia, unspecified iron deficiency anemia type (Primary Dx); Hepatic cirrhosis, unspecified hepatic cirrhosis type, unspecified whether ascites present 01/14/2025 [facility] [place] [address] Mirta Means DO 01/13/2025 External Device Data ST[facility] ABSTRACTION Provider, Abstract 01/06/2025 External Device Data [facility] ABSTRACTION Provider, Abstract 01/06/2025 External Device Data [facility] ABSTRACTION Provider, Abstract 12/30/2024 External Device Data ST[facility] ABSTRACTION Provider, Abstract 12/09/2024 External Device Data STL ABSTRACTION Provider, Abstract 12/05/2024 7:24 PM CDT - 12/05/2024 9:47 PM CDT Emergency [facility] Emergency Medicine [address] [place] [address] Leg swelling (Primary Dx); Chronic bilateral low back pain without sciatica Discharge Disposition: Home or Self Care 11/22/2024 8:22 PM CDT - 11/22/2024 10:24 PM CDT Emergency [facility] Emergency Medicine [address] [place] [address] Julian Avila MD Nausea (Primary Dx); Acute [...] on file Legal Sex Female 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 RBC MORPHOLOGY Normal 12/05/2024 8:38 PM CDT [facility] Blood BLOOD SPECIMEN / Unknown Collection / Unknown 12/05/2024 8:13 PM CDT 12/05/2024 8:21 PM CDT us Julian Avila MD HEMATOLOGY ORDERABLES COM Final Result [facility] CLIA # [id number] [address] [place] [address] * (ABNORMAL) CBC WITH DIFFERENTIAL (12/05/2024 8:13 PM CDT) Only the most recent of2 resultswithin the time period is included. WBC 4.0 4.0 - 10.0 K/uL 12/05/2024 8:38 PM [facility] RBC 3.03(L) 3.93 - 5.22 M/uL 12/05/2024 8:38 PM [facility] HEMOGLOBIN 8.4(L) 11.2 - 15.7 g/dL 12/05/2024 8:38 PM [facility] HEMATOCRIT 25.2(L) 34.1 - 44.9 % 12/05/2024 8:38 PM [facility] MCV 83.2 79.4 - 94.8 fL 12/05/2024 8:38 PM [facility] MCH 27.7 25.6 - 32.2 pg 12/05/2024 8:38 PM [facility] MCHC 33.3 32.2 - 35.5 g/dL 12/05/2024 8:38 PM [facility] RDW 16.5(H) 11.0 - 14.5 % 12/05/2024 8:38 PM [facility] RDW-STDEV 49.7 36.9 - 56.9 fL 12/05/2024 8:38 PM [facility] PLATELETS 97(L) 163 - 337 K/uL 12/05/2024 8:38 PM [facility] MPV 10.2 10.0 - 14.8 fL 12/05/2024 8:38 PM [facility] NEUTROPHILS 68 34 - 71 % 12/05/2024 8:38 PM [facility] LYMPHOCYTES 21 19 - 52 % 12/05/2024 8:38 PM [facility] MONOCYTES 8 5 - 13 % 12/05/2024 8:38 PM [facility] EOSINOPHILS 2 1 - 6 % 12/05/2024 8:38 PM CDT [facility] BASOPHILS 1 0 - 1 % 12/05/2024 8:38 PM CDT [facility] IMMATURE GRANULOCYTES 1 % 12/05/2024 8:38 PM CDT [facility] NEUTROPHIL ABSOLUTE 2.72 1.56 - 6.13 K/uL 12/05/2024 8:38 PM [facility] LYMPHOCYTE ABSOLUTE 0.83(L) 1.20 - 3.40 K/uL 12/05/2024 8:38 PM CDT [facility] MONOCYTE ABSOLUTE 0.30 0.24 - 0.36 K/uL 12/05/2024 8:38 PM [facility] EOSINOPHIL ABSOLUTE 0.07 0.04 - 0.36 K/uL 12/05/2024 8:38 PM [facility] BASOPHILS ABSOLUTE 0.03 0.01 - 0.08 K/uL 12/05/2024 8:38 PM [facility] IMMATURE GRANULOCYTES ABSOLUTE 0.02 K/uL 12/05/2024 8:38 PM [facility] Blood BLOOD SPECIMEN / Unknown Collection / Unknown 12/05/2024 8:13 PM CDT 12/05/2024 8:21 PM CDT us Julian Avila MD HEMATOLOGY ORDERABLES Final Result [id number] [address] [place] [address] * (ABNORMAL) COMPREHENSIVE METABOLIC PANEL (12/05/2024 8:13 PM CDT) Only the most recent of2 resultswithin the time period is included. SODIUM 140 136 - 145 mmol/L 12/05/2024 8:56 PM CDT [facility] POTASSIUM 3.4(L) 3.5 - 5.1 mmol/L 12/05/2024 8:56 PM [facility] CHLORIDE 106 98 - 107 mmol/L 12/05/2024 8:56 PM [facility] CO2 24 22 - 29 mmol/L 12/05/2024 8:56 PM [facility] CALCIUM 8.2(L) 8.6 - 10.0 mg/dL 12/05/2024 8:56 PM [facility] BUN 5(L) 6 - 20 mg/dL 12/05/2024 8:56 PM [facility] CREATININE 0.62 0.51 - 0.95 mg/dL 12/05/2024 8:56 PM [facility] GLUCOSE 98 74 - 99 mg/dL 12/05/2024 8:56 PM [facility] TOTAL PROTEIN 5.2(L) 6.6 - 8.7 g/dL 12/05/2024 8:56 PM [facility] ALBUMIN 2.9(L) 3.5 - 5.2 g/dL 12/05/2024 8:56 PM [facility] BILIRUBIN TOTAL 2.4(H) 0.0 - 1.2 mg/dL 12/05/2024 8:56 PM [facility] ALKALINE PHOSPHATASE 135(H) 35 - 104 U/L 12/05/2024 8:56 PM [facility] AST 72(H) 0 - 35 U/L 12/05/2024 8:56 PM [facility] Comment:Hemolysis present. R esult may be falsely elevated. ALT 34 0 - 35 U/L 12/05/2024 8:56 PM [facility] GFR >60 >=60 mL/min/1.7 3 sq meter 12/05/2024 8:56 PM [facility] Comment:eGFR calculated with 2020 CKD-EPI equation. Vegetarian diet, extremely high or low muscle mass, and may affect results. Cystatin C with Glomerular Filtration Rate is a suitable alternative for these patients. ANION GAP 10 5 - 20 mmol/L 12/05/2024 8:56 PM [facility] Blood BLOOD SPECIMEN / Unknown Collection / Unknown 12/05/2024 8:13 PM CDT 12/05/2024 8:21 PM CDT Julian Avila MD CHEMISTRY ORDERABLES Final Result Performing Organization Address City/[facility]/ZIP Co de Phone Number [facility] CLIA # [id number] [address] [place] [address] * (ABNORMAL) LIPASE (11/22/2024 8:33 PM CDT) LIPASE 72(H) 13 - 60 U/L 11/22/2024 8:57 PM CDT [facility] Blood BLOOD SPECIMEN / Unknown Collection / Unknown 11/22/2024 8:33 PM CDT 11/22/2024 8:39 PM CDT Julian Avila MD CHEMISTRY ORDERABLES Final Result Performing Organization Address [facility] de Phone Number [facility] [id number] [address] [place] [address] * EKG 12 lead (11/22/2024 8:14 PM [...] CHEMISTRY ORDERABLES Final Result Performing Organization Address City/State/[facility] Co de Phone Number EXTERNAL LAB from Last 3 Months or Most Recently Relevant to Health Maintenance Insurance MEDICAID [place] [facility]
--- OUTSIDE RECORDS SUMMARY | 2025-01-27 16:03 | XMS_ITS | Encounter Summary ---
Author Organization [facility] Address [address] [place] [address] Care Team Providers Care Fern Picker Name Role Phone Areli Gurrola MD Primary Care Provider Encounter Details Date Type Department Care Team (Latest Contact Info) Description 10/11/2005 Outpatient Historical [facility] [address] [place] [address] Trell York MD [address] [place] [address] Dysthymic Disorder (Primary Dx); Lumbago Social History Tobacco Use Types Packs/Day Years Used Date Smoking Tobacco: Never Assessed Comments Unknown Sex and Gender Information Value Date Recorded Sex Assigned at Not on file 

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
--- OUTSIDE RECORDS SUMMARY | 2025-01-27 16:03 | XMS_ITS | Encounter Summary ---
Author Organization [facility] Address [address] [place] [address] Care Team Providers Care Credit Balance Specialist Name Role Phone Areli Gurrola MD Primary Care Provider Encounter Details Date Type Department Care Team (Latest Contact Info) Description 06/07/1998 Outpatient Historical [facility] P[facility]GERY Charli Perez MD NO ADDRESS ON FILE Open wound of forehead (Primary Dx) Social History Tobacco Use Types Packs/Day Years Used Date Smoking Tobacco: Never Assessed Comments Unknown Sex and Gender Information Value Date Recorded Sex Assigned at Not on file 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
--- OUTSIDE RECORDS SUMMARY | 2025-01-27 16:03 | XMS_ITS | Encounter Summary ---
Author Organization 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
--- OUTSIDE RECORDS SUMMARY | 2025-01-27 16:03 | XMS_ITS | Encounter Summary ---
Author Organization [facility] Address [address] [place] [address] Care Team Providers Care Glove Brusher Name Role Phone Areli Gurrola MD Primary Care Provider Encounter Details Date Type Department Care Team (Latest Contact Info) Description 03/14/1999 Outpatient 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
--- OUTSIDE RECORDS SUMMARY | 2025-01-27 16:04 | XMS_ITS | Encounter Summary ---
Author Organization [facility] Address [address] [place] [address] Care Team Providers Care Inward Toll Operator Name Role Phone Areli Gurrola MD Primary Care Provider Encounter Details Date Type Department Care Team (Latest Contact Info) Description [facility]/18/[facility] [place] [address] [place] [address] Gordon Cabral MD NO ADDRESS ON FILE PREOP EXAM OTHER SPECIFIED (Primary Dx); Excessive menstruation; FEMALE GENITAL SYMPTOMS NOS Social History Tobacco Use Types Packs/Day Years Used Date Smoking Tobacco: Never Assessed Comments Unknown Sex and Gender Information Value Date Recorded Sex Assigned at Not on file Legal 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
--- OUTSIDE RECORDS SUMMARY | 2025-01-27 16:04 | XMS_ITS | Encounter Summary ---
Author Organization [facility] Address [address] [place] [address] Care Team Providers Care Nursing Instructor Name Role Phone Areli Gurrola MD Primary Care Provider Encounter Details Date Type Department Care Team (Latest Contact Info) Description 02/05/2003 Outpatient Historical [facility] [place] [address] [place] [address] Gordon Cabral MD NO ADDRESS ON FILE SURGERY FOLLOWUP, UNSPEC (Primary Dx) Social History Tobacco Use Types Packs/Day Years Used Date Smoking Tobacco: Never Assessed Comments Unknown Sex and Gender Information Value Date Recorded Sex Assigned at Not on file 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 [place] [address] PCP - General Specialist 08/12/19 documented as of this encounter
--- OUTSIDE RECORDS SUMMARY | 2025-01-27 16:04 | XMS_ITS | Encounter Summary ---
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
--- OUTSIDE RECORDS SUMMARY | 2025-01-27 16:04 | XMS_ITS | Encounter Summary ---
Author Organization [facility] Address [address] [place] [address] Care Team Providers Care Service Establishment Attendant Name Role Phone Areli Gurrola MD Primary Care Provider Encounter Details Date Type Department Care Team (Latest Contact Info) Description 10/20/2002 Outpatient Historical [facility] PreAdmission [place] [address] [place] [address] Gordon Cabral MD NO ADDRESS ON FILE PREOP EXAM OTHER SPECIFIED (Primary Dx) Social History Tobacco Use Types Packs/Day Years Used Date Smoking Tobacco: Never Assessed Comments Unknown Sex and Gender Information Value Date Recorded Sex Assigned at Not on file 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
--- OUTSIDE RECORDS SUMMARY | 2025-01-27 16:04 | XMS_ITS | Encounter Summary ---
Author Organization [facility] Address [address] [place] [address] Care Team Providers Care Circus Artist Name Role Phone Areli Gurrola MD Primary Care Provider Encounter Details Date Type Department Care Team (Latest Contact Info) Description 04/21/2003 Outpatient [facility] [place] [address] [place] [address] Gordon Cabral MD NO ADDRESS ON FILE URIN TRACT INFECTION NOS (Primary Dx) Social History Tobacco Use Types Packs/Day Years Used Date Smoking Tobacco: Never Assessed Comments Unknown Sex and Gender Information Value Date Recorded Sex Assigned at Not on file 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
--- OUTSIDE RECORDS SUMMARY | 2025-01-27 16:04 | XMS_ITS | Encounter Summary ---
Author Organization [facility] Address [address] [place] [address] Care Team Providers Care Rn Hemodialysis Charge Name Role Phone Areli Gurrola MD Primary Care Provider Encounter Details Date Type Department Care Team (Latest Contact Info) Description 07/26/1998 Outpatient Historical [facility] Charli Perez MD NO ADDRESS ON FILE Other specified aftercare following surgery (Primary Dx) Social History Tobacco Use Types Packs/Day Years Used Date Smoking Tobacco: Never Assessed Comments Unknown Sex and Gender Information Value Date Recorded Sex Assigned at Not on file Legal Sex Female 3:40 AM RADIO DIRECTOR Gender Identity Not on file Sexual [...] as of this encounter Care Teams Rn Hemodialysis Charge Relationship Specialty Start Date End Date Areli Gurrola MD [address] [place] [address] PCP - General Specialist 08/12/19 documented as of this encounter
--- OUTSIDE RECORDS SUMMARY | 2025-01-27 16:04 | XMS_ITS | Encounter Summary ---
Author Organization [facility] Address [address] [place] [address] Care Team Providers Care Construction Operations Manager Name Role Phone Areli Gurrola MD Primary Care Provider Encounter Details Date Type Department Care Team (Latest Contact Info) Description 02/02/1999 Outpatient Historical [facility] [place] [address] [place] [address] [place], Gibran Lynn MD [address] [place] [address] Sprain and strain of other specified sites of shoulder and upper arm (Primary Dx); Hx musculoskletl dis NEC Social History Tobacco Use Types Packs/Day Years Used Date Smoking Tobacco: Never Assessed Comments Unknown Sex and Gender Information Value Date Recorded Sex Assigned at Not on file Legal 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
--- OUTSIDE RECORDS SUMMARY | 2025-01-27 16:04 | XMS_ITS | Encounter Summary ---
Author Organization [facility] Address [address] [place] [address] Care Team Providers Care Graphics Programmer Name Role Phone Areli Gurrola MD Primary Care Provider Encounter Details Date Type Department Care Team (Latest Contact Info) Description 10/22/2002 Outpatient Historical [facility] Operating Room [address] [place] [address] Gordon Cabral MD NO ADDRESS ON FILE POLYP OF CORPUS UTERI (Primary Dx) Social History Tobacco Use Types Packs/Day Years Used Date Smoking Tobacco: Never Assessed Comments Unknown Sex and Gender Information Value Date Recorded Sex Assigned at Not on file Legal Sex Female 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
--- OUTSIDE RECORDS SUMMARY | 2025-01-27 16:04 | XMS_ITS | Encounter Summary ---
Author Organization [facility] Address [address] [place] [address] Care Team Providers Care Banking Management Consulting Manager Name Role Phone Areli Gurrola MD Primary Care Provider Encounter Details Date Type Department Care Team (Latest Contact Info) Description 10/28/[address] [facility] [place] [address] [place] [address] Gordon Cabral MD NO ADDRESS ON FILE SURGERY FOLLOWUP, UNSPEC (Primary Dx) Social History Tobacco Use Types Packs/Day Years Used Date Smoking Tobacco: Never Assessed Comments Unknown Sex and Gender Information Value Date Recorded Sex Assigned at Not on file Legal Sex Female 3:40 AM MATCHER Gender Identity Not on file Sexual Orientation [...] documented as of this encounter Care Teams Banking Management Consulting Manager Relationship Specialty Start Date End Date Areli Gurrola MD [address] [facility] [place] [address] PCP - General Specialist 08/12/19 documented as of this encounter
--- OUTSIDE RECORDS SUMMARY | 2025-01-27 16:04 | XMS_ITS | Encounter Summary ---
Author Organization [facility] Address [address] [place] [address] Care Team Providers Care Escrow Officer Name Role Phone Areli Gurrola MD Primary Care Provider Encounter Details Date Type Department Care Team (Latest Contact Info) Description 10/09/[address] 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
--- OUTSIDE RECORDS SUMMARY | 2025-01-27 16:04 | XMS_ITS | Encounter Summary ---
Author Organization [facility] Address [address] [place] [address] Care Team Providers Care Recovery Auditor Name Role Phone Areli Gurrola MD Primary Care Provider Encounter Details Date Type Department Care Team (Latest Contact Info) Description 10/14/2002 Outpatient Historical [facility] [address] [place] [address] Trell York MD [address] [place] [phone] ACUTE URI NOS (Primary Dx); COUGH Social History Tobacco Use Types Packs/Day Years Used Date Smoking Tobacco: Never Assessed Comments Unknown Sex and Gender Information Value Date Recorded Sex Assigned at Not on file Legal Sex Female 3:40 AM PROCEDURE ANALYST Gender Identity Not on file Sexual [...] documented as of this encounter Care Teams Recovery Auditor Relationship Specialty Start Date End Date Areli Gurrola MD [address] [facility] [place] [address] PCP - General Specialist 08/12/19 documented as of this encounter
--- OUTSIDE RECORDS SUMMARY | 2025-01-27 16:04 | XMS_ITS | Encounter Summary ---
Author Organization [facility] Address [address] [place] [address] Care Team Providers Care Still Runner Name Role Phone Areli Gurrola MD Primary Care Provider Encounter Details Date Type Department Care Team (Latest Contact Info) Description 10/03/2002 Outpatient [facility] [place] [address] [place] [address] Gordon Cabral MD NO ADDRESS ON FILE METRORRHAGIA (Primary Dx) Social History Tobacco Use Types Packs/Day Years Used Date Smoking Tobacco: Never Assessed Comments Unknown Sex and Gender Information Value Date Recorded Sex Assigned at Not on file Legal Sex Female 3:40 AM RECREATION ASSISTANT Gender Identity Not on file Sexual Orientation Not on file documented as of this encounter Plan of Treatment Not on file documented as of this encounter Visit Diagnoses Diagnosis Metrorrhagia- Primary documented in this encounter Additional Health Concerns Infection Onset Date Last Indicated Resolved Time R/O COVID-19 01/31/2020 01/31/2020 02/02/2020 10:3 2 AM CDT documented as of this encounter Care Teams Still Runner Relationship Specialty Start Date End Date Areli Gurrola MD [address] [place] [address] PCP - General Specialist 08/12/19 documented as of this encounter
--- OUTSIDE RECORDS SUMMARY | 2025-01-27 16:04 | XMS_ITS | Encounter Summary ---
Author Organization [facility] Address [address] [place] [address] Care Team Providers Care Welding Machine Assembler Name Role Phone Areli Gurrola MD Primary Care Provider Encounter Details Date Type Department Care Team (Latest Contact Info) Description 12/18/2002 Outpatient Historical [facility] PreAdmission [id number] [place] [address] Gordon Cabral MD NO ADDRESS ON FILE PREOP EXAM OTHER SPECIFIED (Primary Dx) Social History Tobacco Use Types Packs/Day Years Used Date Smoking Tobacco: Never Assessed Comments Unknown Sex and Gender Information Value Date Recorded Sex Assigned at Not on file Legal Sex Female 3:40 AM LEAD RECOVERER Gender Identity Not on file Sexual Orientation [...] Areli Gurrola MD [address] [place] [address] PCP - General Specialist 08/12/19 documented as of this encounter
--- OUTSIDE RECORDS SUMMARY | 2025-01-27 16:04 | XMS_ITS | Encounter Summary ---
Author Organization [facility] Address [address] [place] [address] Care Team Providers Care Wood Buffer Name Role Phone Areli Gurrola MD Primary Care Provider Encounter Details Date Type Department Care Team (Latest Contact Info) Description 10/09/2002 Outpatient Historical [facility] [place] [address] [place] [address] Gordon Cabral MD NO ADDRESS ON FILE Excessive menstruation (Primary Dx) Social History Tobacco Use Types Packs/Day Years Used Date Smoking Tobacco: Never Assessed Comments Unknown Sex and Gender Information Value Date Recorded Sex Assigned at Not on file Legal Sex Female 3:40 AM BUS INSPECTOR Gender Identity Not on file Sexual [...] as of this encounter Care Teams Wood Buffer Relationship Specialty Start Date End Date Areli Gurrola MD [address] [facility] [place] [address] PCP - General Specialist 08/12/19 documented as of this encounter
--- OUTSIDE RECORDS SUMMARY | 2025-01-27 16:04 | XMS_ITS | Encounter Summary ---
Author Organization [facility] Address [address] [place] [address] Care Team Providers Care Director Of Strategic Communications Name Role Phone Areli Gurrola MD Primary Care Provider Encounter Details Date Type Department Care Team (Latest Contact Info) Description 05/11/2003 Outpatient Historical [facility] [address] [place] [address] Trell York MD [address] [place] [phone] CERVICALGIA (Primary Dx) Social History Tobacco Use Types Packs/Day Years Used Date Smoking Tobacco: Never Assessed Comments Unknown Sex and Gender Information Value Date Recorded Sex Assigned at Not on file Legal Sex Female 3: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 MACHINE OFFBEARER Gender Identity Not on file Sexual Orientation Not on file documented as of this encounter Plan of Treatment Not on file documented as of this encounter Visit Diagnoses Diagnosis Cervicalgia- Primary documented in this encounter Additional Health Concerns Infection Onset Date Last Indicated Resolved Time R/O COVID-19 01/31/2020 01/31/2020 02/02/2020 10:3 2 AM CDT documented as of this encounter Care Teams Director Of Strategic Communications Relationship Specialty Start Date End Date Areli Gurrola MD [address] [facility] [place] [address] PCP - General Specialist 08/12/19 documented as of this encounter
--- OUTSIDE RECORDS SUMMARY | 2025-01-27 16:04 | XMS_ITS | Encounter Summary ---
Author Organization [facility] Address [address] [place] [address] Care Team Providers Care Wellness Coach Name Role Phone Areli Gurrola MD Primary Care Provider Encounter Details Date Type Department Care Team (Latest Contact Info) Description 07/05/1998 Outpatient Historical [facility] Charli Perez MD NO ADDRESS ON FILE Other specified aftercare following surgery (Primary Dx) Social History Tobacco Use Types Packs/Day Years Used Date Smoking Tobacco: Never Assessed Comments Unknown Sex and Gender Information Value Date Recorded Sex Assigned at Not on file Legal Sex Female 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
--- OUTSIDE RECORDS SUMMARY | 2025-01-27 16:04 | XMS_ITS | Encounter Summary ---
Author Organization [facility] Address [address] [place] [address] Care Team Providers Care Deep Sea Diver Name Role Phone Areli Gurrola MD Primary Care Provider Encounter Details Date Type Department Care Team (Latest Contact Info) Description 10/16/2002 Outpatient [facility] [place] [address] [place] [address] Gordon Cabral MD NO ADDRESS ON FILE PREOP EXAM OTHER SPECIFIED (Primary Dx); Excessive menstruation Social History Tobacco Use Types Packs/Day Years Used Date Smoking Tobacco: Never Assessed Comments Unknown Sex and Gender Information Value Date Recorded Sex Assigned at Not on file Legal Sex Female 3:40 AM UNDERGRADUATE INTERN Gender Identity Not on file Sexual [...] documented as of this encounter Care Teams Deep Sea Diver Relationship Specialty Start Date End Date Areli Gurrola MD [address] [facility] [place] [address] PCP - General Specialist 08/12/19 documented as of this encounter
--- OUTSIDE RECORDS SUMMARY | 2025-01-27 16:04 | XMS_ITS | Encounter Summary ---
Author Organization [facility] Address [address] [place] [address] Care Team Providers Care Pattern Assembler Name Role Phone Areli Gurrola MD Primary Care Provider Encounter Details Date Type Department Care Team (Latest Contact Info) Description 07/19/1998 Outpatient Historical [facility] Chrali Perez MD NO ADDRESS ON FILE Scar condition and fibrosis of skin (Primary Dx) Social History Tobacco Use Types Packs/Day Years Used Date Smoking Tobacco: Never Assessed Comments Unknown Sex and Gender Information Value Date Recorded Sex Assigned at Not on file Legal Sex Female 3:40 AM COMPUTER SUPPORT ANALYST Gender Identity Not on file Sexual [...] documented as of this encounter Care Teams Pattern Assembler Relationship Specialty Start Date End Date Areli Gurrola MD [address] [place] [address] PCP - General Specialist 08/12/19 documented as of this encounter
--- OUTSIDE RECORDS SUMMARY | 2025-01-27 16:04 | XMS_ITS | Encounter Summary ---
Author Organization [employer] [facility] Address [address] [place] [address] Care Team Providers Care Senior Data Architect Name Role Phone Areli Gurrola MD Primary Care Provider Encounter Details Date Type Department Care Team (Latest Contact Info) Description 10/03/2002 [facility] [address] [place] [place] [address] Gordon Cabral MD NO ADDRESS ON FILE MENSTRUAL DISORDER NEC (Primary Dx) Social History Tobacco Use Types Packs/Day Years Used Date Smoking Tobacco: Never Assessed Comments Unknown Sex and Gender Information Value Date Recorded Sex Assigned at Not on file Legal Sex Female 3:40 AM WET SANDER Gender Identity Not on file Sexual [...] as of this encounter Care Teams Senior Data Architect Relationship Specialty Start Date End Date Areli Gurrola MD [address] [facility] [address] PCP - General Specialist 08/12/19 documented as of this encounter
--- OUTSIDE RECORDS SUMMARY | 2025-01-27 16:04 | XMS_ITS | Encounter Summary ---
Author Organization [facility] Address [address] [place] [address] Care Team Providers Care Special Duty Nurse Name Role Phone Areli Gurrola MD Primary Care Provider Encounter Details Date Type Department Care Team (Late st Contact Info) Description 10/27/2002 Emergency [facility] [address] [place] [address] Cira Archibald MD NO ADDRESS ON FILE FEMALE GENITAL SYMPTOMS NOS (Primary Dx) Social History Tobacco Use Types Packs/Day Years Used Date Smoking Tobacco: Never Assessed Comments Unknown Sex and Gender Information Value Date Recorded Sex Assigned at Not on file Legal Sex Female 3:40 AM ROLLER LEVELER Gender Identity Not on file Sexual [...] as of this encounter Care Teams Special Duty Nurse Relationship Specialty Start Date End Date Areli Gurrola MD [address] [place] [address] PCP - General Specialist 08/12/19 documented as of this encounter
--- OUTSIDE RECORDS SUMMARY | 2025-01-27 16:05 | XMS_ITS | Encounter Summary ---
Author Organization [facility] Address [address] [place] [address] Care Team Providers Care Spinning Mule Operator Name Role Phone Areli Gurrola MD Primary Care Provider Encounter Details Date Type Department Care Team (Late st Contact Info) Description 06/27/2001 Outpatient Historical [facility] Gen Spec Surg [address] [address] Renan Martinez MD [address] [place] [address] CHOLELITHIASIS NOS (Primary Dx); SURGERY FOLLOWUP, UNSPEC Social History Tobacco Use Types Packs/Day Years Used Date Smoking Tobacco: Never Assessed Comments Unknown Sex and Gender Information Value Date Recorded Sex Assigned at Not on file Legal Sex Female 3:40 AM TRAVELING NURSE Gender Identity Not on file Sexual [...] documented as of this encounter Care Teams Spinning Mule Operator Relationship Specialty Start Date End Date Areli Gurrola MD [address] [facility] [place] [address] PCP - General Specialist 08/12/19 documented as of this encounter
--- OUTSIDE RECORDS SUMMARY | 2025-01-27 16:05 | XMS_ITS | Encounter Summary ---
Author Organization [facility] Address [address] [place] [address] Care Team Providers Care Safety Representative Name Role Phone Areli Gurrola MD Primary Care Provider Encounter Details Date Type Department Care Team (Latest Contact Info) Description 12/04/2001 Outpatient [facility] [address] [place] [address] rTell York MD [address] [place] [address] ACUTE BRONCHITIS (Primary Dx); COUGH Social History Tobacco Use Types Packs/Day Years Used Date Smoking Tobacco: Never Assessed Comments Unknown Sex and Gender Information Value Date Recorded Sex Assigned at Not on file Legal Sex Female 3:40 AM EIGHT ARM OPERATOR Gender Identity Not on file Sexual [...] documented as of this encounter Care Teams Safety Representative Relationship Specialty Start Date End Date Areli Gurrola MD [address] [facility] [place] [address] PCP - General Specialist 08/12/19 documented as of this encounter
--- OUTSIDE RECORDS SUMMARY | 2025-01-27 16:05 | XMS_ITS | Encounter Summary ---
Author Organization [facility] Address [address] [place] [address] Care Team Providers Care Junction Maker Name Role Phone Areli Gurrola MD Primary Care Provider Encounter Details Date Type Department Care Team (Latest Contact Info) Description 01/09/2002 Outpatient Historical [facility] [address] [place] [address] Trell York MD [address] [place] [phone] HEADACHE (Primary Dx); CERVICALGIA Social History Tobacco Use Types Packs/Day Years Used Date Smoking Tobacco: Never Assessed Comments Unknown Sex and Gender Information Value Date Recorded Sex Assigned at Not on file Legal Sex Female 3:40 AM HEADER OPERATOR Gender Identity Not on file Sexual [...] documented as of this encounter Care Teams Junction Maker Relationship Specialty Start Date End Date Areli Gurrola MD [address] [place] [address] PCP - General Specialist 08/12/19 documented as of this encounter
--- OUTSIDE RECORDS SUMMARY | 2025-01-27 16:05 | XMS_ITS | Encounter Summary ---
Author Organization [facility] Address [address] [place] [address] Care Team Providers Care Accounting Systems Analyst Name Role Phone Areli Gurrola MD Primary Care Provider Encounter Details Date Type Department Care Team (Latest Contact Info) Description 10/01/2002 Outpatient Historical [facility] [address] [place] [address] Trell York MD [address] [place] [phone] ACUTE SINUSITIS NOS (Primary Dx) Social History Tobacco Use Types Packs/Day Years Used Date Smoking Tobacco: Never Assessed Comments Unknown Sex and Gender Information Value Date Recorded Sex Assigned at Not on file Legal Sex Female 3:40 AM CLINICAL RESEARCH SCIENTIST Gender Identity Not on file Sexual [...] documented as of this encounter Care Teams Accounting Systems Analyst Relationship Specialty Start Date End Date Areli Gurrola MD [address] [facility] [place] [address] PCP - General Specialist 08/12/19 documented as of this encounter
--- OUTSIDE RECORDS SUMMARY | 2025-01-27 16:05 | XMS_ITS | Encounter Summary ---
Author Organization [facility] Address [address] [place] [address] Care Team Providers Care Inventory Control Supervisor Name Role Phone Areli Gurrola MD Primary Care Provider Encounter Details Date Type Department Care Team (Late st Contact Info) Description 10/30/2002 Emergency [facility] Emergency Department [address] [place] [address] Tomás Jade MD NO ADDRESS ON FILE FEMALE GENITAL SYMPTOMS NOS (Primary Dx) Social History Tobacco Use Types Packs/Day Years Used Date Smoking Tobacco: Never Assessed Comments Unknown Sex and Gender Information Value Date Recorded Sex Assigned at Not on file Legal Sex Female 3:40 AM SUPERVISOR FABRICATION AND ASSEMBLY Gender Identity Not on file Sexual Orientation [...] documented as of this encounter Care Teams Inventory Control Supervisor Relationship Specialty Start Date End Date Areli Gurrola MD [address] [place] [address] PCP - General Specialist 08/12/19 documented as of this encounter
--- OUTSIDE RECORDS SUMMARY | 2025-01-27 16:05 | XMS_ITS | Encounter Summary ---
Author Organization [facility] Address [address] [place] [address] Care Team Providers Care Medical Administrator Name Role Phone Areli Gurrola MD Primary Care Provider Encounter Details Date Type Department Care Team (Latest Contact Info) Description 12/02/[address] [facility] [place] [address] [place] [address] Gordon Cabral MD NO ADDRESS ON FILE FEMALE GENITAL SYMPTOMS NOS (Primary Dx) Social History Tobacco Use Types Packs/Day Years Used Date Smoking Tobacco: Never Assessed Comments Unknown Sex and Gender Information Value Date Recorded Sex Assigned at Not on file Legal Sex Female 3:40 AM DIRECTOR OF RETAIL ANALYTICS Gender Identity Not on file Sexual Orientation [...] as of this encounter Care Teams Medical Administrator Relationship Specialty Start Date End Date Areli Gurrola MD [address] [facility] [place] [address] PCP - General Specialist 08/12/19 documented as of this encounter
--- OUTSIDE RECORDS SUMMARY | 2025-01-27 16:05 | XMS_ITS | Encounter Summary ---
Author Organization [facility] Address [address] [place] [address] Care Team Providers Care Outpatient Coder Name Role Phone Areli Gurrola MD Primary Care Provider Encounter Details Date Type Department Care Team (Latest Contact Info) Description 07/16/2001 Outpatient Historical [facility] [address] [place] [address] Trell York MD [address] [place] [phone] SWELLING OF LIMB (Primary Dx) Social History Tobacco Use Types Packs/Day Years Used Date Smoking Tobacco: Never Assessed Comments Unknown Sex and Gender Information Value Date Recorded Sex Assigned at Not on file Legal Sex Female 3:40 AM GOLD LAYER Gender Identity Not on file Sexual [...] documented as of this encounter Care Teams Outpatient Coder Relationship Specialty Start Date End Date Areli Gurrola MD [address] [facility] [place] [address] PCP - General Specialist 08/12/19 documented as of this encounter
--- OUTSIDE RECORDS SUMMARY | 2025-01-27 16:05 | XMS_ITS | Encounter Summary ---
Author Organization [facility] Address [address] [place]: [place] [address] Care Team Providers Care Mergers And Acquisitions Associate Name Role Phone Areli Gurrola MD Primary Care Provider Encounter Details Date Type Department Care Team (Late st Contact Info) Description 07/30/2001 Outpatient Historical [place], Trell Pascual MD [address] [place] [phone] Social History Tobacco Use Types Packs/Day Years Used Date Smoking Tobacco: Never Assessed Comments Unknown Sex and Gender Information Value Date Recorded Sex Assigned at Not on file Legal Sex Female 3:40 AM MANUFACTURING SALES REPRESENTATIVE Gender Identity Not on file Sexual Orientation Not on file documented as of this encounter Plan of Treatment Not on file documented as of this encounter Visit Diagnoses Not on filedocumented in this encounter Additional Health Concerns Infection Onset Date Last Indicated Resolved Time R/O COVID-19 01/31/2020 01/31/2020 02/02/2020 10:3 2 AM CDT documented as of this encounter Care Teams Mergers And Acquisitions Associate Relationship Specialty Start Date End Date Areli Gurrola MD [address] [place] [phone] PCP - General Specialist 08/12/19 documented as of this encounter
--- OUTSIDE RECORDS SUMMARY | 2025-01-27 16:05 | XMS_ITS | Encounter Summary ---
Author Organization [facility] Address [address] [place] [address] Care Team Providers Care Video Camera Operator Name Role Phone Areli Gurrola MD Primary Care Provider Encounter Details Date Type Department Care Team (Latest Contact Info) Description 01/20/2002 Outpatient Historical [facility] [address] [place] [address] Trell York MD [address] [place] [address] NEUROTIC DEPRESSION (Primary Dx); ANXIETY STATE NOS; CERVICALGIA; LUMBAGO Social History Tobacco Use Types Packs/Day Years Used Date Smoking Tobacco: Never Assessed Comments Unknown Sex and Gender Information Value Date Recorded Sex Assigned at Not on file Legal Sex Female 3:40 AM CASTING FINISHER Gender Identity Not on file Sexual [...] as of this encounter Care Teams Video Camera Operator Relationship Specialty Start Date End Date Areli Gurrola MD [address] [place] [address] PCP - General Specialist 08/12/19 documented as of this encounter
--- OUTSIDE RECORDS SUMMARY | 2025-01-27 16:05 | XMS_ITS | Encounter Summary ---
Author Organization [facility] Address [address] [place] [address] Care Team Providers Care Nurses Supervisor Name Role Phone Areli Gurrola MD Primary Care Provider Encounter Details Date Type Department Care Team (Latest Contact Info) Description 10/31/2002 Outpatient Historical [facility] [place] [address] [place] [address] Gordon Cabral MD NO ADDRESS ON FILE SURGERY FOLLOWUP, UNSPEC (Primary Dx) Social History Tobacco Use Types Packs/Day Years Used Date Smoking Tobacco: Never Assessed Comments Unknown Sex and Gender Information Value Date Recorded Sex Assigned at Not on file Legal Sex Female 3:40 AM EMERGENCY MANAGEMENT CONSULTANT Gender Identity Not on file Sexual [...] documented as of this encounter Care Teams Nurses Supervisor Relationship Specialty Start Date End Date Areli Gurrola MD [address] [facility] [place] [address] PCP - General Specialist 08/12/19 documented as of this encounter
--- OUTSIDE RECORDS SUMMARY | 2025-01-27 16:05 | XMS_ITS | Encounter Summary ---
Author Organization [facility] Address [address] [place] [address] Care Team Providers Care Broker Assistant Name Role Phone Areli Gurrola MD Primary Care Provider Encounter Details Date Type Department Care Team (Latest Contact Info) Description 11/25/2002 Outpatient Historical [facility] [place] [address] [place] [address] Gordon Cabral MD NO ADDRESS ON FILE DYSMENORRHEA (Primary Dx) Social History Tobacco Use Types Packs/Day Years Used Date Smoking Tobacco: Never Assessed Comments Unknown Sex and Gender Information Value Date Recorded Sex Assigned at Not on file Legal Sex Female 3:40 AM FINANCE EFFECTIVENESS MANAGER Gender Identity Not on file Sexual Orientation Not on file documented as of this encounter Plan of Treatment Not on file documented as of this encounter Visit Diagnoses Diagnosis Dysmenorrhea- Primary documented in this encounter Additional Health Concerns Infection Onset Date Last Indicated Resolved Time R/O COVID-19 01/31/2020 01/31/2020 02/02/2020 10:3 2 AM CDT documented as of this encounter Care Teams Broker Assistant Relationship Specialty Start Date End Date Areli Gurrola MD [address] [facility] [place] [address] PCP - General Specialist 08/12/19 documented as of this encounter
--- OUTSIDE RECORDS SUMMARY | 2025-01-27 16:05 | XMS_ITS | Encounter Summary ---
Author Organization [facility] Address [address] [place] [address] Care Team Providers Care Wholesale And Retail Merchant Name Role Phone Areli Gurrola MD Primary Care Provider Encounter Details Date Type Department Care Team (Latest Contact Info) Description 08/25/2002 Outpatient Historical [facility] [address] [place] [address] Trell York MD [address] [place] [phone] INSOMNIA NEC (Primary Dx); OTHER MALAISE AND FATIGUE; NEUROTIC DEPRESSION; CERVICALGIA Social History Tobacco Use Types Packs/Day Years Used Date Smoking Tobacco: Never Assessed Comments Unknown Sex and Gender Information Value Date Recorded Sex Assigned at Not on file Legal Sex Female 3:40 AM ROULETTE DEALER Gender Identity Not on file Sexual [...] documented as of this encounter Care Teams Wholesale And Retail Merchant Relationship Specialty Start Date End Date Areli Gurrola MD [address] [facility] [place] [address] PCP - General Specialist 08/12/19 documented as of this encounter
--- OUTSIDE RECORDS SUMMARY | 2025-01-27 16:05 | XMS_ITS | Encounter Summary ---
Author Organization [facility] Address [address] [place] [address] Care Team Providers Care Civil Engineering Intern Name Role Phone Areli Gurrola MD Primary Care Provider Encounter Details Date Type Department Care Team (Latest Contact Info) Description 07/29/2001 Outpatient Historical [facility] [address] [place] [address] Trell York MD [address] [place] [phone] COMMON MIGRAINE W/O MENTN INTRACT (Primary Dx); LUMBAGO Social History Tobacco Use Types Packs/Day Years Used Date Smoking Tobacco: Never Assessed Comments Unknown Sex and Gender Information Value Date Recorded Sex Assigned at Not on file Legal Sex Female 3:40 AM INJECTION MOLDING OPERATOR Gender Identity Not on file Sexual [...] documented as of this encounter Care Teams Civil Engineering Intern Relationship Specialty Start Date End Date Areli Gurrola MD [address] [facility] [place] [address] PCP - General Specialist 08/12/19 documented as of this encounter
--- OUTSIDE RECORDS SUMMARY | 2025-01-27 16:05 | XMS_ITS | Encounter Summary ---
Author Organization [facility] Address [address] [place] [address] Care Team Providers Care Roof Panel Hanger Name Role Phone Areli Gurrola MD Primary Care Provider Encounter Details Date Type Department Care Team (Latest Contact Info) Description 11/20/2001 [facility] [address] [place] [address] Trell York MD [address] [place] [phone] LUMBAGO (Primary Dx); SEBACEOUS CYST Social History Tobacco Use Types Packs/Day Years Used Date Smoking Tobacco: Never Assessed Comments Unknown Sex and Gender Information Value Date Recorded Sex Assigned at Not on file Legal Sex Female 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
--- OUTSIDE RECORDS SUMMARY | 2025-01-27 16:05 | XMS_ITS | Encounter Summary ---
Author Organization [facility] Address [address] [place] [address] Care Team Providers Care Dice Person Name Role Phone Areli Gurrola MD Primary Care Provider Encounter Details Date Type Department Care Team (Latest Contact Info) Description 08/20/2001 Outpatient Historical [facility] [address] [place] [address] Trell York MD [address] [place] [phone] ACUTE PHARYNGITIS (Primary Dx) Social History Tobacco Use Types Packs/Day Years Used Date Smoking Tobacco: Never Assessed Comments Unknown Sex and Gender Information Value Date Recorded Sex Assigned at Not on file Legal Sex Female 3: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 Gender Identity Not on file Sexual Orientation Not on file documented as of this encounter Plan of Treatment Not on file documented as of this encounter Visit Diagnoses Diagnosis Acute pharyngitis- Primary documented in this encounter Additional Health Concerns Infection Onset Date Last Indicated Resolved Time R/O COVID-19 01/31/2020 01/31/2020 02/02/2020 10:3 2 AM CDT documented as of this encounter Care Teams Dice Person Relationship Specialty Start Date End Date Areli Gurrola MD [address] [facility] [place] [address] PCP - General Specialist 08/12/19 documented as of this encounter
--- OUTSIDE RECORDS SUMMARY | 2025-01-27 16:05 | XMS_ITS | Encounter Summary ---
Author Organization [facility] Address [address] [place] [address] Care Team Providers Care Aluminum Container Tester Name Role Phone Areli Gurrola MD Primary Care Provider Encounter Details Date Type Department Care Team (Latest Contact Info) Description 10/21/2001 Outpatient Historical [facility] [address] [place] [address] Trell oYrk MD [address] [place] [phone] NEUROTIC DEPRESSION (Primary Dx); LUMBAGO; ACUTE LARYNGOTRACH W OBSTR Social History Tobacco Use Types Packs/Day Years Used Date Smoking Tobacco: Never Assessed Comments Unknown Sex and Gender Information Value Date Recorded Sex Assigned at Not on file Legal Sex Female 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
--- OUTSIDE RECORDS SUMMARY | 2025-01-27 16:06 | XMS_ITS | Encounter Summary ---
Author Organization [facility] Address [address] [place] [address] Care Team Providers Care Summer Law Clerk Name Role Phone Areli Gurrola MD Primary Care Provider Encounter Details Date Type Department Care Team (Latest Contact Info) Description 07/30/2002 Outpatient Historical [facility] [address] [place] [address] Trell York MD [address] [place] [phone] INSOMNIA NEC (Primary Dx); NEUROTIC DEPRESSION; LUMBAGO Social History Tobacco Use Types Packs/Day Years Used Date Smoking Tobacco: Never Assessed Comments Unknown Sex and Gender Information Value Date Recorded Sex Assigned at Not on file Legal Sex Female 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
--- OUTSIDE RECORDS SUMMARY | 2025-01-27 16:06 | XMS_ITS | Encounter Summary ---
Author Organization [facility] Address [address] [place] [address] Care Team Providers Care Sound Effects Supervisor Name Role Phone Areli Gurrola MD Primary Care Provider Encounter Details Date Type Department Care Team (Late st Contact Info) Description 04/14/2002 Outpatient [facility] [address] [place] [address] Miguelangel Mas, NO ADDRESS ON FILE SPRAIN OF ANKLE NOS (Primary Dx) Social History Tobacco Use Types Packs/Day Years Used Date Smoking Tobacco: Never Assessed Comments Unknown Sex and Gender Information Value Date Recorded Sex Assigned at Not on file Legal Sex Female 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
--- OUTSIDE RECORDS SUMMARY | 2025-01-27 16:06 | XMS_ITS | Encounter Summary ---
Author Organization [facility] Address [address] [place] [address] Care Team Providers Care Windows Migration Technician Name Role Phone Areli Gurrola MD Primary Care Provider Encounter Details Date Type Department Care Team (Latest Contact Info) Description 07/09/2002 Outpatient Historical [facility] [address] [place] [address] Trell York MD [address] [place] [phone] OTHER MALAISE AND FATIGUE (Primary Dx); CERVICALGIA Social History Tobacco Use Types Packs/Day Years Used Date Smoking Tobacco: Never Assessed Comments Unknown Sex and Gender Information Value Date Recorded Sex Assigned at Not on file Legal Sex Female 3:40 AM ACCOUNT COORDINATOR Gender Identity Not on file Sexual [...] as of this encounter Care Teams Windows Migration Technician Relationship Specialty Start Date End Date Areli Gurrola MD [address] [place] [address] PCP - General Specialist 08/12/19 documented as of this encounter
--- OUTSIDE RECORDS SUMMARY | 2025-01-27 16:06 | XMS_ITS | Encounter Summary ---
Author Organization [facility] Address [address] [place] [address] Care Team Providers Care Automotive Electrical Helper Name Role Phone Areli Gurrola MD Primary Care Provider Encounter Details Date Type Department Care Team (Latest Contact Info) Description 03/26/2002 Outpatient Historical [facility] [address] [place] [address] Trell York MD [address] [place] [phone] CERVICALGIA (Primary Dx); ABDOMINAL PAIN UNSPEC SITE Social History Tobacco Use Types Packs/Day Years Used Date Smoking Tobacco: Never Assessed Comments Unknown Sex and Gender Information Value Date Recorded Sex Assigned at Not on file Legal Sex Female 3:40 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
--- OUTSIDE RECORDS SUMMARY | 2025-01-27 16:06 | XMS_ITS | Encounter Summary ---
Author Organization [facility] Address [address] [place] [address] Care Team Providers Care Linter Operator Name Role Phone Areli Gurrola MD Primary Care Provider Encounter Details Date Type Department Care Team (Latest Contact Info) Description 04/10/2002 Outpatient Historical [facility] Endoscopy Andrés [address] [place] [address] Gildardo Ace MD [address] [place] [phone] ABDOMINAL PAIN EPIGASTRIC (Primary Dx) Social History Tobacco Use Types Packs/Day Years Used Date Smoking Tobacco: Never Assessed Comments Unknown Sex and Gender Information Value Date Recorded Sex Assigned at Not on file Legal Sex Female 3: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
--- OUTSIDE RECORDS SUMMARY | 2025-01-27 16:06 | XMS_ITS | Encounter Summary ---
Author Organization [facility] Address [address] [place] [address] Care Team Providers Care Supervisor Intermediates Name Role Phone Areli Gurrola MD Primary Care Provider Encounter Details Date Type Department Care Team (Latest Contact Info) Description 04/07/2002 Outpatient Historical [facility] [address] [place] [address] Trell York MD [address] [place] [phone] URTICARIA NOS (Primary Dx) Social History Tobacco Use Types Packs/Day Years Used Date Smoking Tobacco: Never Assessed Comments Unknown Sex and Gender Information Value Date Recorded Sex Assigned at Not on file Legal Sex Female 3:40 AM PANEL GLUER Gender Identity Not on file Sexual Orientation Not on file documented as of this encounter Plan of Treatment Not on file documented as of this encounter Visit Diagnoses Diagnosis Urticaria, unspecified- Primary documented in this encounter Additional Health Concerns Infection Onset Date Last Indicated Resolved Time R/O COVID-19 01/31/2020 01/31/2020 02/02/2020 10:3 2 AM CDT documented as of this encounter Care Teams Supervisor Intermediates Relationship Specialty Start Date End Date Areli Gurrola MD [address] [facility] [place] [address] PCP - General Specialist 08/12/19 documented as of this encounter
--- OUTSIDE RECORDS SUMMARY | 2025-01-27 16:06 | XMS_ITS | Encounter Summary ---
Author Organization [facility] Address [address] [place] [address] Care Team Providers Care Service Coordinator Name Role Phone Areli Gurrola MD Primary Care Provider Encounter Details Date Type Department Care Team (Latest Contact Info) Description 03/20/2002 Outpatient Historical [facility] [address] [place] [address] Trell York MD [address] [place] [phone] ESOPHAGITIS, UNSPECIFIED (Primary Dx); CERVICALGIA; UNSPEC CONSTIPATION Social History Tobacco Use Types Packs/Day Years Used Date Smoking Tobacco: Never Assessed Comments Unknown Sex and Gender Information Value Date Recorded Sex Assigned at Not on file Legal Sex Female 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
--- OUTSIDE RECORDS SUMMARY | 2025-01-27 16:06 | XMS_ITS | Encounter Summary ---
Author Organization [facility] Address [address] [place] [address] Care Team Providers Care Rn Tele Name Role Phone Areli Gurrola MD Primary Care Provider Encounter Details Date Type Department Care Team (Late st Contact Info) Description 04/14/2002 Outpatient [facility] [address] [place] [address] Miguelangel Mas, NO ADDRESS ON FILE JOINT PAIN-ANKLE (Primary Dx) Social History Tobacco Use Types Packs/Day Years Used Date Smoking Tobacco: Never Assessed Comments Unknown Sex and Gender Information Value Date Recorded Sex Assigned at Not on file Legal Sex Female 3:40 AM ALCOHOL AND DRUG COUNSELOR Gender Identity Not on file Sexual [...] as of this encounter Care Teams Rn Tele Relationship Specialty Start Date End Date Areli Gurrola MD [address] [place] [address] PCP - General Specialist 08/12/19 documented as of this encounter
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
[2025-01-27] MEDS: FUROsemide 10 mg/mL SDV 4mL 40 MG IVP (17:51)
[2025-01-28] VITALS (8 sets, daily range): BP systolic 122–158; BP diastolic 61–87; PULSE 74–83; RESP 16–18; TEMP 37–37.2; O2SAT 96–100
[2025-01-28] MEDS: ondansetron 2 mg/ML SDV 2 mL 4 MG IVP ×2 (03:27→10:02)
[2025-01-28] MEDS: oxyCODONE 5 mg IR Tab/Cap PO ×3 (03:27→16:39)
[2025-01-28] MEDS: FUROsemide 10 mg/mL SDV 4mL 40 MG IVP ×2 (05:03→16:39)
[2025-01-28 05:43] LABS: Hematocrit 28.8 % (36-47); Hemoglobin 9.10 g/dL (11.27-16.99); Mean Corpuscular HGB Conc 31.6 g/dL (30-55); Mean Corpuscular Hemoglobin 30.7 pg (27-33); Mean Corpuscular Volume 97.3 fl (85-98); Nucleated Red Blood Cells % 0 %; Platelet Count 42 10^3/cmm (157-399); Red Blood Count 2.96 10^6/uL (3.85-5.65); White Blood Count 3.97 10^3/uL (3.29-11.43)
[2025-01-28 06:02] LABS: Albumin Level 2.6 g/dL (3.5-5.2); Alkaline Phosphatase 109 U/L (35-105); Blood Urea Nitrogen 4 mg/dL (6-20); Calcium 7.8 mg/dL (8.5-10.5); Carbon Dioxide 20 mmol/L (22-29); Chloride 101 mmol/L (98-107); Creatinine Clr Calc Pharmacy 240.0072; Globulin 2.5 g/dL (1.3-4.6); Glucose 120 mg/dL (65-115); Magnesium 1.7 mg/dL (1.7-2.3); Osmolality Calculated 276 mOsm/kg (285-295); Sodium 134 mmol/L (136-145); Total Protein 5.1 g/dL (6.6-8.7)
[2025-01-28 06:05] LABS: Alanine Aminotransferase 23 U/L (0-33); Anion Gap 16.9 (5-19); Aspartate Amino Transferase 50 U/L (0-32); Potassium 3.9 mmol/L (3.5-5.1)
--- NOTE | 2025-01-28 07:09 | W.PM.OPSUD ---
Surgery/Procedure H&P Update DATE OF PROCEDURE: January 28, 2025 DATE H&P PERFORMED: 01/27/25 CHANGES TO PREVIOUS DOCUMENTATION: None from 01/27/25 PREOP DIAGNOSIS: anemia PRIMARY INDICATION FOR PROCEDURE: dysphagia PLANNED PROCEDURE: Operation Date: 01/27/25 09:30 Proposed Procedures p EGD(Not Applicable) - Bernardo Rosen MD
--- NOTE | 2025-01-28 09:23 | PC.CHAP ---
Pastoral Care Encounter/Spiritual Assessment Type of Contact [] Declined powerhouse attendant visit [] Patient/Family/Request visit [] Outpatient visit [] Follow-up visit [] Physician referral [] Code/Alert [x] Routine visit [] Staff referral [] Actively dying [] Patient sleeping [] Family support [] [] Out of room [] Palliative care [] [] Receiving care in room [] Pre-surgical visit [] Trauma [] Long length of stay [] ICU visit [] Other: Relational/Emotional Strength [x] Patient feels connected with others/family/visitors/staff [] Distress [] Loneliness/isolation [] Abandonment Spirituality of Patient [x] Person of Aparna [] Attends Shinto of their Aparna [x] Believes in Prayer [] Reads Bible or Synagogue materials [] There are Spiritual issues to be addressed Tenderizer Tender Interventions [x] Prayer [x] Active listening [] Non-anxious presence [x] Spiritual/emotional support [] Crisis/trauma care [] Spiritual counseling [] Bereavement support [] Provided bereavement packet [] Provided Bible/devotional materials [] Provided toy/stuffed animal, coloring book to patient or family member [] Provided Communion [] Anointing/Flushing [] Salvation [x] Completed spiritual assessment [] Other: Impact on Illness or Injury [] Angry [] Fearful [] Anxious [] Often cries [] Exhaustion [] Unable to work [] Unable to attend faith [] Unable to walk/stand [] Unable to read [] Unable to drive [] Unable to eat/drink [] Unable to sleep [] Unable to be with family [] Patient intubated [] Other: Summary Time spent with patient 5 min
--- NOTE | 2025-01-28 18:11 | P.PN_ITS ---
Subjective 2 Subjective: 59-year-old female states that she still is having abdominal pain occasionally sharp pain. Swelling has diminished and pain has diminished slightly as well. She has been trying to push the fluids and urine output has increased and her urine has become manager market research in color. Patient reports she has chronic insomnia and would like her Ambien restarted Vitals/I&O/Wt Last Vital Signs Temp 98.6 F 01/28/25 16:00 Pulse 83 01/28/25 16:00 Resp 16 01/28/25 16:39 BP 132/66 01/28/25 16:00 Pulse Ox 99 01/28/25 16:39 O2 Del Method Room Air 01/28/25 16:00 01/28/25 01/28/25 01/28/25 06:59 14:59 22:59 Intake Total 973.333 / 4156.598 8529.667 / 1926.667 980 / 2906.667 Output Total 2100 / 5250 6900 / 6900 Balance -1126.667 / -3596.667 -4973.333 / -4973.333 980 / -3993.333 Weight last 48 hrs Weight 73.482 kg Weight 71.668 kg Physical Exam 2 Narrative: General Well-developed obese female in no acute cardiopulmonary distress she is talkative alert and pleasant CV regular rate and rhythm Lungs clear to auscultation bilaterally Abdomen positive bowel tones soft diffusely tender no rebound tenderness. I did not appreciate shifting fluid wave and abdomen is much less distended minimal tenderness today Thighs 1+ edema Calves 1+ to pretibial edema Urinary Catheter Management: Santana: Cath Placed During This Visit: yes Reason for Continuing Indwelling Catheter: Other Urinary Catheter Date of Insertion: 01/27/25 Urinary Catheter Time of Insertion: 21:34 Data 01/28/25 05:28 01/28/25 05:28 Micro: Microbiology 01/26/25 22:23 Urine Culture - Final Urine,Clean Catch Klebsiella pneumoniae A&P Assessment and plan 1. Epigastric pain: Will treat with GI cocktail and pantoprazole. Clear liquid diet. Lipase today 38 Cannot exclude SBP but patient seems to have responded to just the Cipro 1 dose in the ER. 2. UTI (urinary tract infection): Patient is allergic to ceftriaxone. Give ciprofloxacin 500 mg twice a day orally. She received one 400 mg IV dose in ER 3. Ascites due to alcoholic cirrhosis: Will treat for 3 days with Cipro for possible SBP 4. Cirrhosis of liver: Stable no variceal bleeding no hepatic encephalopathy patient is not an active drinker of alcohol currently. PDMP PDMP Reviewed: Not Reviewed Attestations 2 Medical Necessity Statement*: Patient diane in hospital for diuresis and antibiotic treatment with monitoring of her ascites abdominal pain and UTI symptoms Coding Level of Care Code 10275 Diagnoses Epigastric pain R10.13 UTI (urinary tract infection) N39.0 Ascites due to alcoholic cirrhosis K70.31 Cirrhosis of liver K70.30 Ascites presence: without ascites Hepatic cirrhosis type: alcoholic cirrhosis Time Spent (min) 35
[2025-01-28] MEDS: MELATONIN 3 MG TABLET PO (22:05)
[2025-01-29] VITALS (10 sets, daily range): BP systolic 110–152; BP diastolic 60–77; PULSE 62–91; RESP 16–19; TEMP 36.7–37.2; O2SAT 95–99
[2025-01-29] MEDS: oxyCODONE 5 mg IR Tab/Cap PO ×4 (03:44→23:10)
[2025-01-29] MEDS: ondansetron hcl ODT 4 mg Tab PO (04:16)
[2025-01-29 10:37] LABS: Anion Gap 12.8 (5-19); Blood Urea Nitrogen 5 mg/dL (6-20); Calcium 8.8 mg/dL (8.5-10.5); Carbon Dioxide 28 mmol/L (22-29); Chloride 100 mmol/L (98-107); Creatinine Clr Calc Pharmacy 126.9018; Glucose 87 mg/dL (65-115); Magnesium 1.6 mg/dL (1.7-2.3); Osmolality Calculated 281 mOsm/kg (285-295); Potassium 3.8 mmol/L (3.5-5.1); Sodium 137 mmol/L (136-145)
--- NOTE | 2025-01-29 15:06 | P.PN_ITS ---
Subjective 2 Subjective: 59-year-old female states that she still is having abdominal pain occasionally sharp pain. Swelling has diminished and pain has diminished as well. Patient was on IV fluids till early this a.m. patient has at home been drinking most of her calories and sodas. She was counseled and is interested in losing weight and be healthier Vitals/I&O/Wt Last Vital Signs Temp 98.3 F 01/29/25 11:24 Pulse 62 01/29/25 11:24 Resp 17 01/29/25 11:24 BP 110/62 01/29/25 11:24 Pulse Ox 97 01/29/25 11:24 O2 Del Method Room Air 01/29/25 11:24 01/29/25 01/29/25 01/29/25 06:59 14:59 22:59 Intake Total 720 / 720 Output Total 1000 / 51130 2650 / 2650 Balance -1000 / -97273.333 -1930 / -1930 Weight last 48 hrs Weight 77.706 kg Weight 73.482 kg Physical Exam 2 Narrative: General Well-developed obese female in no acute cardiopulmonary distress she is talkative alert and pleasant CV regular rate and rhythm Lungs clear to auscultation bilaterally Abdomen positive bowel tones soft diffusely tender no rebound tenderness. I did not appreciate shifting fluid wave and abdomen is much less distended minimal tenderness today Calves trace Urinary Catheter Management: Santana: Cath Placed During This Visit: yes Reason for Continuing Indwelling Catheter: Other Urinary Catheter Date of Insertion: 01/27/25 Urinary Catheter Time of Insertion: 21:34 Data 01/28/25 05:28 01/29/25 10:10 Micro: Microbiology 01/26/25 22:23 Urine Culture - Final Urine,Clean Catch Klebsiella pneumoniae A&P Assessment and plan 1. SBP (spontaneous bacterial peritonitis): Continue with ciprofloxacin 500 mg twice a day for 5 to 7 days 2. UTI (urinary tract infection): Patient is allergic to ceftriaxone. Give ciprofloxacin 500 mg twice a day orally. She received one 400 mg IV dose in ER 3. Epigastric pain: Will treat with GI cocktail and pantoprazole. Clear liquid diet. Lipase today 38 Patient improved with treatment for SBP 4. Ascites due to alcoholic cirrhosis: Will treat for 5-7 days with Cipro for possible SBP 5. Cirrhosis of liver: Stable no variceal bleeding no hepatic encephalopathy patient is not an active drinker of alcohol currently. PDMP PDMP Reviewed: Not Reviewed Attestations 2 Medical Necessity Statement*: Patient remains in the hospital overnight for additional diuresis and time for treatment of SBP anticipate discharge home tomorrow Coding Level of Care Code 05890 Diagnoses SBP (spontaneous bacterial peritonitis) K65.2 UTI (urinary tract infection) N39.0 Epigastric pain R10.13 Ascites due to alcoholic cirrhosis K70.31 Cirrhosis of liver K70.30 Ascites presence: without ascites Hepatic cirrhosis type: alcoholic cirrhosis Time Spent (min) 35
[2025-01-29] MEDS: MELATONIN 3 MG TABLET PO (20:28)
[2025-01-30] VITALS: BP 111/60; PULSE 78; RESP 18; TEMP 36.9; O2SAT 96
[2025-01-30 03:57] VITALS: BP 119/65; PULSE 84; RESP 16; TEMP 36.9; O2SAT 96
[2025-01-30 06:47] VITALS: RESP 20
[2025-01-30] MEDS: oxyCODONE 5 mg IR Tab/Cap PO ×2 (06:47→11:31)
[2025-01-30 07:59] VITALS: BP 133/70; PULSE 98; RESP 18; TEMP 36.7; O2SAT 97
[2025-01-30 11:31] VITALS: RESP 18; O2SAT 97
[2025-01-30 12:02] VITALS: BP 135/65; PULSE 75; RESP 16; TEMP 36.9; O2SAT 98
--- NOTE | 2025-01-30 13:09 | P.DS_ITS ---
Discharge Providers Date of Admission: 01/27/25 12:52 Date of Discharge: January 30, 2025 Attending Provider at Admission: Casper Blas MD Attending Provider at Discharge: Casper Blas MD Consults: None Primary Care Provider: Aida Vincent Diagnoses at Discharge Discharge Diagnosis 1. SBP (spontaneous bacterial peritonitis): Details from hospital stay: Patient was treated with ciprofloxacin from the emergency department and this was continued without a paracentesis. Patient had ascites but modest in amount and not an easy tap. She responded to ciprofloxacin and will be treated for total of 8 days 2. UTI (urinary tract infection): Details from hospital stay: UTI by urinalysis showing 10-15 white cells 3+ bacteria 0-4 squamous cells and grew Klebsiella 60-70,000 colony counts sensitive to ciprofloxacin which patient is on 3. Epigastric pain: Details from hospital stay: Resolving 4. Ascites due to alcoholic cirrhosis: Details from hospital stay: Change furosemide to 40 mg twice a day, spironolactone continued 100 mg daily and potassium chloride increased to 20 mg twice a day. Patient had a Santana catheter and diuresed a cumulative amount of 22.6 L Weight today 67.69 kg Reason for Visit Reason for Visit: abd pain Physical Exam Narrative: General well-developed well-nourished female in no acute cardiopulmonary distress CV regular rate and rhythm Lungs clear to auscultation bilaterally Abdomen positive bowel tones soft mild right periumbilical tenderness this is much improved from admission and has progressively improved with treatment of her SBP Calves no tenderness cords pretibial edema Urinary Catheter Management: Santana: Cath Placed During This Visit: yes Reason for Continuing Indwelling Catheter: Other Urinary Catheter Date of Insertion: 01/27/25 Urinary Catheter Time of Insertion: 21:34 Discharge Data Studies Completed and Pending Completed Studies During Hospitalization Category Date Time Status CT abdomen w con* [id number] Stat Cat Scan 01/27/25 10:[address] ang ches abdpel [id number] Stat Cat Scan 01/26/25 20:13 Completed US liver [id number] Stat Ultrasound 01/27/25 07:38 Completed Radiology Impressions Chest/Abdomen/Pelvis CTA 01/26/25 20:13 IMPRESSION: 1. No evidence of acute aortic intramural hematoma, aneurysm, dissection, or penetrating atherosclerotic ulceration. 2. No acute pulmonary embolus or evidence of acute right heart strain (within the limitations of this non PE protocol study). 3. Findings concerning for new portal venous thrombus. Recommend abdominal sonogram with liver Doppler. 4. Hepatic cirrhosis. 5. Splenomegaly. 6. Intra and extrahepatic bile duct dilatation favored to represent reservoir effect in the post cholecystectomy state. Consider correlation with LFTs/bilirubin. Nonemergent follow-up MRCP can be obtained if clinically indicated. 7. Findings suggestive of reactive periportal/pericaval lymph nodes in the setting of chronic liver disease. 8. Medium volume ascites. 9. Soft tissue anasarca. ADDENDUM: 01/26/25 1320 The findings were verbally communicated via telephone conference with Poonam Lozada at 10:49 PM CDT on 01/26/2025. The findings were acknowledged and understood. Liver Ultrasound 01/27/25 07:38 IMPRESSION: 1. Limited evaluation of the portal vein. Study is not adequate to exclude portal vein thrombosis. 2. Prior cholecystectomy. 3. Mildly dilated common bile duct is on the basis of the cholecystectomy. 4. Cirrhotic liver with a small amount of ascites. Abdomen CT 01/27/25 10:35 IMPRESSION: 1. No acute portal vein thrombosis. Small caliber portal vein similar to several prior studies including 11/24/2024 and 02/05/2020. 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 2. Cirrhotic liver. 3. Advanced mesenteric edema and soft tissue anasarca. 4. There is colonic wall thickening greatest involving the cecum which can be noted with portal hypertension. Ischemia may appear similar. There is no free air. 5. Portal venous hypertension with splenomegaly and extensive varices in the LEFT upper abdomen. Notified Gee Huertas DO at 01/27/2025 12:25 PM. Laboratory Results WBC 3.97 10^3/uL (3.29-11.43) 01/28/25 05:28 RBC 2.96 10^6/uL (3.85-5.65) L 01/28/25 05:28 Hgb 9.10 g/dL (11.27-16.99) L 01/28/25 05:28 Hct 28.8 % (36-47) L 01/28/25 05:28 MCV 97.3 fl (85-98) 01/28/25 05:28 MCH 30.7 pg (27-33) 01/28/25 05:28 MCHC 31.6 g/dL (30-55) 01/28/25 05:28 RDW 20.7 % (12.1-15.1) H 01/28/25 05:28 Plt Count 42 10^3/cmm (157-399) L D 01/28/25 05:28 MPV 9.4 fL (7.4-10.4) 01/28/25 05:28 Neut % (Auto) 72.5 % 01/28/25 05:28 Lymph % (Auto) 13.9 % 01/28/25 05:28 [place] % (Auto) 6.5 % 01/28/25 05:28 Eos % (Auto) 6.0 % 01/28/25 05:28 Baso % (Auto) 0.8 % 01/28/25 05:28 Neut # (Auto) 2.88 10^3/uL (1.8-7.7) 01/28/25 05:28 Lymph # (Auto) 0.6 10^3/uL (0.8-4.8) L 01/28/25 05:28 [place] # (Auto) 0.3 10^3/uL (0.2-0.9) 01/28/25 05:28 Eos # (Auto) 0.2 10^3/uL (0.0-0.8) 01/28/25 05:28 Baso # (Auto) 0.0 10^3/uL (0.0-0.1) 01/28/25 05:28 Nucleated RBC % (auto) 0 % 01/28/25 05:28 Nucleated RBCs # 0.0 /100WBC 01/28/25 05:28 PT 16.00 SECONDS (12.1-14.9) H 01/27/25 09:38 INR 1.19 (0.8-1.2) 01/27/25 09:38 APTT 33.4 SECONDS (23.9-36.7) 01/27/25 09:38 Sodium 137 mmol/L (136-145) 01/29/25 10:10 Potassium 3.8 mmol/L (3.5-5.1) 01/29/25 10:10 Chloride 100 mmol/L (98-107) 01/29/25 10:10 Carbon Dioxide 28 mmol/L (22-29) 01/29/25 10:10 Anion Gap 12.8 (5-19) 01/29/25 10:10 BUN 5 mg/dL (6-20) L 01/29/25 10:10 Creatinine 0.6 mg/dL (0.5-0.9) 01/29/25 10:10 GFR Calculation 103.0 mL/min (90-130) 01/29/25 10:10 Glucose 87 mg/dL (65-115) 01/29/25 10:10 POC Glucose 143 mg/dL (70-110) H 01/29/25 20:05 Calculated Osmolality 281 mOsm/kg (285-295) L 01/29/25 10:10 Calcium 8.8 mg/dL (8.5-10.5) 01/29/25 10:10 Phosphorus 2.8 mg/dL (2.5-4.5) 01/28/25 05:28 Magnesium 1.6 mg/dL (1.7-2.3) L 01/29/25 10:10 Total Bilirubin 2.5 mg/dL (0.15-1.2) H 01/28/25 05:28 AST 50 U/L (0-32) H 01/28/25 05:28 ALT 23 U/L (0-33) 01/28/25 05:28 Alkaline Phosphatase 109 U/L (35-105) H 01/28/25 05:28 Troponin T Baseline 11 ng/L (0-10) H 01/26/25 20:06 Troponin T 120 Minute 10.59 ng/L (0-10) H 01/26/25 22:03 Delta Troponin T -0.41 ABS# (0-10) L 01/26/25 22:03 Total Protein 5.1 g/dL (6.6-8.7) L 01/28/25 05:28 Albumin 2.6 g/dL (3.5-5.2) L 01/28/25 05:28 Globulin 2.5 g/dL (1.3-4.6) 01/28/25 05:28 Lipase 38 U/L (13-60) 01/27/25 09:38 Urine Color Yellow (Yellow) 01/26/25 22:23 Urine Appearance Clear (CLEAR) 01/26/25 22:23 Urine pH 6.0 (5-7) 01/26/25 22: Ur Specific [place] 1.058 (1.005-1.030) H 01/26/25 22: Urine Protein 2+ (Negative) A 01/26/25 22: Urine Glucose (UA) Negative (Normal) 01/26/25 22: Urine Ketones Negative (Negative) 01/26/25 22: Urine Blood 2+ (Negative) A 01/26/25 22: Urine Nitrate Positive (Negative) A 01/26/25: Urine Bilirubin Negative (Negative) 01/26/25 22: Urine Urobilinogen 1.0 mg/dL (Negative) 01/26/25 22: Ur Leukocyte Esterase Negative (Negative) 01/26/25 22: Urine RBC 0-4 /hpf (0-2) H 01/26/25 22:23 Urine WBC 10-15 /hpf (0-5) H 01/26/25 22:23 Ur Squamous Epith Cells 0-4 /hpf (0-5) H 01/26/25 22: Amorphous Sediment Not Reportable 01/26/25 22: Urine Bacteria 3+ /hpf (NONE) H 01/26/25 22:23 Urine Mucus Trace /hpf 01/26/25 22:23 Vitals Last Vital Signs Temp 98.4 F 01/30/25 12:02 Pulse 75 01/30/25 12:02 Resp 16 01/30/25 12:02 BP 135/65 01/30/25 12:02 Pulse Ox 98 01/30/25 12:02 O2 Del Method Room Air 01/30/25 12:02 Discharge Plan Discharge Patient Disposition: Home Condition: Stable Prescriptions: New magnesium oxide 400 mg (241.3 mg magnesium) Tablet 400 mg PO BID Qty: 60 0RF ciprofloxacin HCl 500 mg Tablet 500 mg PO BID@0900,2100 Qty: 10 0RF potassium chloride [Klor-Con M20] 20 mEq Tablet,Er Particles/Crystals 20 meq PO BID Qty: 60 0RF Rx Instructions: Take potassium together with furosemide to replace potassium lost with the furosemide water pill melatonin 3 mg Tablet 3 mg PO BEDTIME Qty: 30 0RF furosemide 40 mg Tablet 40 mg PO BID@08,16 Qty: 60 0RF Continued buspirone 5 mg tablet 5 mg PO BID PRN (Reason: Anxiety) Patient Comments: at bedtime zolpidem [Ambien] 5 mg tablet 5 mg PO DAILY hydroxyzine pamoate 25 mg capsule 25 mg PO BID PRN (Reason: anxiety) Qty: 14 0RF spironolactone 100 mg tablet 100 mg PO DAILY Women's 50 Plus Multivitamin 400 mcg-500 mg calcium-20 mcg Tablet 1 tab PO DAILY ziprasidone HCl 20 mg capsule 20 mg PO BID PRN (Reason: Anxiety) nitroglycerin 0.4 mg tablet, sublingual See Rx Instructions .ROUTE .COMPLEX Rx Instructions: PLACE ONE TABLET UNDER TONGUE NEEDED FOR CHEST PAIN. epinephrine 0.3 mg/0.3 mL auto-injector See Rx Instructions .ROUTE .COMPLEX Rx Instructions: INJECT 1 PEN IN THE MUSCLE ONE TIME DIRECTED. Discontinued tizanidine 4 mg capsule 4 mg PO Q8H PRN (Reason: Spasms) potassium chloride [Klor-Con 10] 10 mEq tablet extended release 10 meq PO DAILY Qty: 30 0RF Rx Instructions: with furosemide. furosemide 80 mg tablet See Rx Instructions .ROUTE .COMPLEX Rx Instructions: TAKE 1 TABLET BY MOUTH IN THE MORNING AND 1/2 A TABLET IN THE AFTERNOON Discharge Order = DC NOW: Discharge Order (Routine); Ordered 01/30/25 Ordered By: Casper Blas Other Ambulatory Orders: DME: Walker (Order) Location: None Selected Ordered By: Casper Blas Comprehensive Metabolic Panel (Routine) Timeframe: 1 Week Facility: [facility] - Location: Lab - Main Lab Ordered By: Casper Blas Magnesium (Routine) Timeframe: 1 Week Facility: [facility] - Location: Lab - Main Lab Ordered By: Casper Blas Referrals: [facility] [Other] Referral Note: Call OIL to help get assistance with In Home services. [facility] [place] [Outside] Toño Ferrara MD [Physician, General Surgery] - 02/09/25 8:40 am Aida Vincent PA [Primary Care Provider, Physicians Pharmacist Manager] - 02/05/25 1:20 pm Discharge Diet: Diabetic and Low Salt Patient Instructions: How to Quit Using Smokeless Tobacco (GEN), Peritonitis (GEN), GI Post Discharge Instructions w/ Anesthesia, Opioid Safety, Patient Portal & Deana Instructions Activity Restrictions/Additional Instructions: Take antibiotics as prescribed for another 5 days Stop drinking sugared sodas and caloric drinks because it causes obesity and is also very unhealthy due to the amount of sugar and salt. In order to lose weight you need to 1500 smitha or less daily plus any calories that you allow yourself for exercise. In the past you had A1c of 11 consistent with diabetes though recently that has been better Take furosemide potassium and magnesium as prescribed and have those levels checked with your primary care physician in 1 week Return for fevers or worsened abdominal pain Discharge Attestations Time Spent in Discharge Care*: greater than 30 min Time Spent in Smoking Cessation: 3 to 10 minutes Patient currently using smokeless tobacco and was counseled regarding cardiovascular risk of smokeless nicotine as well as potential damage to lungs with vaping Status at Discharge: Cognitive status at discharge: cognitively intact , Behavioral status at discharge: cooperative , Quality Metrics Clinical Quality Measures [ No reported AMI, CVA or VTE this stay] Coding Level of Care Code 89066 Diagnoses SBP (spontaneous bacterial peritonitis) K65.2 UTI (urinary tract infection) N39.0 Epigastric pain R10.13 Ascites due to alcoholic cirrhosis K70.31 Time Spent (min) 40
== END 2025-01-30 14:36 | disposition home or self-care (01) ==
LOC: ER 01-27 09:34 → MEDSURG 01-27 13:44
PROVIDERS: Family Medicine; Specialist; Student in an Organized Health Care Education/Training Program; Admitting Provider Internal Medicine; Emergency Provider Emergency Medicine; PCP Physician Assistant; Visit Provider Internal Medicine
PROC: 0DJ08ZZ Inspection of Upper Intestinal Tract, Via Natural or Artificial Opening Endoscopic (ICD-10-PCS; principal; 2025-01-27 09:30)
DX: D64.9 Anemia, unspecified (principal); K65.2 Spontaneous bacterial peritonitis; N39.0 Urinary tract infection, site not specified; K70.31 Alcoholic cirrhosis of liver with ascites; F43.10 Post-traumatic stress disorder, unspecified; F12.90 Cannabis use, unspecified, uncomplicated; F33.3 Major depressive disorder, recurrent, severe with psychotic symptoms; E11.21 Type 2 diabetes mellitus with diabetic nephropathy; I50.9 Heart failure, unspecified; F17.290 Nicotine dependence, other tobacco product, uncomplicated
CPT/HCPCS: 36415; 36416; 43235; 51702; 71275; 74160; 74174; 76705; 80048; 80053; 81001; 82962; 83690; 83735; 84100; 84484; 85025; 85610; 85730; 87077; 87086; 87186; 93005; 96365; 96372; 96375; 96376; 99285; G0378; J0330; J0744; J1650; J1938; J2250; J2270; J2405; J2704; J3010; J7030; J9999; Q0162

== ENCOUNTER 2025-02-04 10:06 | Oncology outpatient (recurring) (ONCR) | payer MEDICARE, MEDICAID, SELFPAY ==
[2024-09-18 15:42] VITALS: BP 147/78; BMI 37.0
[2025-01-07] VITALS (10 sets, daily range): BP systolic 121–156; BP diastolic 67–87; PULSE 63–83; RESP 17–18; TEMP 36.1–36.8; O2SAT 96–99
[2025-01-07 10:56] LABS: Hematocrit 22.0 % (36-47); Hemoglobin 7.50 g/dL (11.27-16.99); Mean Corpuscular HGB Conc 34.1 g/dL (30-55); Mean Corpuscular Hemoglobin 29.0 pg (27-33); Mean Corpuscular Volume 84.9 fl (85-98); Nucleated Red Blood Cells % 0 %; Platelet Count 67 10^3/cmm (157-399); Red Blood Count 2.59 10^6/uL (3.85-5.65); White Blood Count 2.30 10^3/uL (3.29-11.43)
[2025-01-07 11:16] LABS: Alanine Aminotransferase 33 U/L (0-33); Albumin Level 2.5 g/dL (3.5-5.2); Alkaline Phosphatase 152 U/L (35-105); Anion Gap 12.5 (5-19); Aspartate Amino Transferase 50 U/L (0-32); Blood Urea Nitrogen 7 mg/dL (6-20); Calcium 8.3 mg/dL (8.5-10.5); Carbon Dioxide 23 mmol/L (22-29); Chloride 102 mmol/L (98-107); Creatinine Clr Calc Pharmacy 167.0198; Ferritin 144 ng/mL (15-150); Globulin 2.7 g/dL (1.3-4.6); Glucose 142 mg/dL (65-115); Iron 33 ug/dL (37-145); Osmolality Calculated 278 mOsm/kg (285-295); Potassium 3.5 mmol/L (3.5-5.1); Sodium 134 mmol/L (136-145); Total Iron Binding Capacity 219 mcg/dl; Total Protein 5.2 g/dL (6.6-8.7); Unsaturated Iron Binding 186 ug/dL (112-347)
[2025-01-07 11:32] LABS: Vitamin B12 795 pg/mL (232-1245)
[2025-01-07 11:36] LABS: Slide Review Slide Review Perform
[2025-02-04 10:35] LABS: Hematocrit 30.1 % (36-47); Hemoglobin 10.10 g/dL (11.27-16.99); Mean Corpuscular HGB Conc 33.6 g/dL (30-55); Mean Corpuscular Hemoglobin 29.8 pg (27-33); Mean Corpuscular Volume 88.8 fl (85-98); Nucleated Red Blood Cells % 0 %; Platelet Count 76 10^3/cmm (157-399); Red Blood Count 3.39 10^6/uL (3.85-5.65); White Blood Count 3.40 10^3/uL (3.29-11.43)
[2025-02-04 10:57] LABS: Alanine Aminotransferase 20 U/L (0-33); Albumin Level 2.8 g/dL (3.5-5.2); Alkaline Phosphatase 143 U/L (35-105); Anion Gap 14.2 (5-19); Aspartate Amino Transferase 40 U/L (0-32); Blood Urea Nitrogen 9 mg/dL (6-20); Calcium 8.4 mg/dL (8.5-10.5); Carbon Dioxide 22 mmol/L (22-29); Chloride 105 mmol/L (98-107); Creatinine Clr Calc Pharmacy 133.6158; Ferritin 80 ng/mL (15-150); Globulin 2.9 g/dL (1.3-4.6); Glucose 111 mg/dL (65-115); Iron 83 ug/dL (37-145); Osmolality Calculated 285 mOsm/kg (285-295); Potassium 3.2 mmol/L (3.5-5.1); Sodium 138 mmol/L (136-145); Total Iron Binding Capacity 303 mcg/dl; Total Protein 5.7 g/dL (6.6-8.7); Unsaturated Iron Binding 220 ug/dL (112-347)
[2025-02-04 11:13] LABS: Vitamin B12 745 pg/mL (232-1245)
== END 2025-02-06 23:59 | disposition home or self-care (01) ==
PROVIDERS: Internal Medicine; PCP Physician Assistant; Visit Provider Internal Medicine
DX: Z53.9 Procedure and treatment not carried out, unspecified reason; D61.818 Other pancytopenia; D69.6 Thrombocytopenia, unspecified; R03.0 Elevated blood-pressure reading, without diagnosis of hypertension; F17.210 Nicotine dependence, cigarettes, uncomplicated; F10.21 Alcohol dependence, in remission; K22.6 Gastro-esophageal laceration-hemorrhage syndrome; D70.9 Neutropenia, unspecified
CPT/HCPCS: 36415; 36430; 80053; 82607; 82728; 82746; 83010; 83540; 83550; 85025; 86850; 86900; 86920; 99213; 99214; J9999; P9016

== ENCOUNTER → 2025-02-09 08:29 | Outpatient (BNVA) | payer MEDICARE, MEDICAID, SELFPAY ==
[2024-09-18 15:42] VITALS: BP 147/78; BMI 37.0
== END ==
PROVIDERS: PCP Physician Assistant; Visit Provider Student in an Organized Health Care Education/Training Program
DX: K74.60 Unspecified cirrhosis of liver (principal); R03.0 Elevated blood-pressure reading, without diagnosis of hypertension
CPT/HCPCS: 99203

== ENCOUNTER 2025-02-22 21:05 | Inpatient (IN) | payer MEDICARE, MEDICAID, SELFPAY ==
[2024-09-18 15:42] VITALS: BP 147/78; BMI 37.0
[2025-02-22 21:06] VITALS: BP 169/98; PULSE 101; RESP 20; TEMP 36.7; O2SAT 97; BMI 29.2
[2025-02-22 21:23] VITALS: PULSE 101; O2SAT 98
--- NOTE | 2025-02-22 21:28 | ED.C_ITS ---
Documented by User: JEFF Kaur 02/23/25 01:33 HPI - Psych 2 General: Chief Complaint: ER Hold Stated Complaint: mhe Time Seen by Provider: 02/22/25 21:06 History of Present Illness: Patient is a 59-year-old female with history of liver disease, presents to the emergency room with wanting to kill herself by hanging. Please see affidavits on the chart. She does admit to wanting to . She admits to 3 shots of fireball, and then her neighbor called her in. She broke up with her boyfriend today. She states were just trying to put the victims in correction. She does threaten suicide while I am at bedside. Associated symptoms: Reports suicidal ideation; Deny auditory hallucinations or visual hallucinations Related Data Home Medications ?Medication ?Instructions ?Recorded ?Confirmed ziprasidone HCl 20 mg capsule 20 mg PO BID PRN Anxiety 07/23/24 02/09/25 buspirone 5 mg tablet 5 mg PO BID PRN Anxiety 08/3102/09/25 epinephrine 0.3 mg/0.3 mL See Rx Instructions .Route . COMPLEX 11/24/24 02/09/25 injection, auto-injector nitroglycerin 0.4 mg sublingual See Rx Instructions .R oute .COMPLEX 11/24/24 02/09/25 tablet zolpidem 5 mg tablet (Ambien) 5 mg PO DAILY 01/07/25 1 04/11/24 hmghunpk-gne-oqonc ac 400 1 tab PO DAILY 01/27/2507/01 mcg-calcium carb 500 mg-vit K1 20 mcg tablet (Women's 50 Plus Multivitamin) spironolactone 100 mg tablet 100 mg PO DAILY 01/27/25 02/09/25 Previous Rx's ?Medication ?Instructions ?Recorded hydroxyzine pamoate 25 mg capsule 25 mg PO BID PRN anx iety #14 caps 01/10/25 furosemide 40 mg tablet 40 mg PO BID@08,16 #60 tabs 01/30/25 magnesium oxide 400 mg (241.3 mg 400 mg PO BID #60 tab s 01/30/25 magnesium) tablet melatonin 3 mg tablet 3 mg PO BEDTIME #30 tabs potassium chloride 20 mEq 20 meq PO BID #60 tabs 01/30 tablet,extended release(part/cryst) (Klor-Con M) Allergies Allergy/AdvReac Type Severity Reaction Status Date / Time venom-wasp Allergy Severe ALGY-Anaphy Verified 02/09/25 08:44 laxis Sulfa (Sulfonamide Allergy Intermediate Hives Verified 02/09/25 08:44 Antibiotics) aspirin Allergy Unknown Unknown Verified 02/09/25 08:44 NSAIDS (Non-Steroidal Allergy Unknown Unknown Verified 02/09/25 08:44 Anti-Inflamma sumatriptan (From Imitrex) Allergy Unknown Unknown Verified 02/09/25 08:44 ibuprofen (From NeoProfen Allergy UNKNOWN Verified 02/09/25 08:44 (ibuprofen lysn)(PF)) metoclopramide (From Reglan) Allergy ALGY-Joint Verified 02/09/25 08:44 Pain bupropion (From Wellbutrin) AdvReac Intermediate ALGY-Rash Verified 02/09/25 08:44 prednisone AdvReac Intermediate Heart rate Verified 02/09/25 08:44 was heavy. [place] sick. Cephalosporins AdvReac Unknown Unknown Verified 02/09/25 08:44 Review of Systems 2 Const: Reports: fever(s) and chills; Denies: change in weight or fatigue Eyes: Denies: change in vision ENMT: Denies: odynophagia Card: Denies: chest pain Resp: Denies: dyspnea GI: Reports: abdominal pain, nausea and GI cramping; Denies: dysphagia or hematochezia : Denies: dysuria Skin/Breast: Denies: rash, nipple discharge or breast mass Neuro: Denies: seizure-like activity Psych: Reports: anxiety, mood swings, panic attacks, hopelessness, irritability, paranoia and suicidal ideation; Denies: visual hallucinations or auditory hallucinations Girma/Lymph: Denies: easy bruising PFSH ED 2 PFSH: Medical History (Updated 02/22/25 @ 21:35 by JEFF Kaur) Ascites due to alcoholic cirrhosis PTSD (post-traumatic stress disorder) Suicidal ideation Cannabis dependence, episodic use Major depressive disorder, recurrent, severe with psychotic symptoms Nicotine dependence due to vaping tobacco product Vaping nicotine Chronic post-traumatic stress disorder Alcohol use disorder, severe, dependence Psychiatric care Uncontrolled type 2 diabetes with neuropathy Sacroiliitis H/O Belkys-Valenzuela syndrome (~07/2019) EGD at [facility]. EGD 10/26 negative. Chronic back pain Congestive heart failure Diabetes mellitus MONTANO (nonalcoholic steatohepatitis) Borderline personality disorder Bilateral primary osteoarthritis of hip Surgical History History of hysterectomy History of esophagogastroduodenoscopy H/O colonoscopy H/O cervical spine surgery Family History Son Suicide September 2019 Other Cancer Hypertension Psychiatric illness Social History Smoking and tobacco/nicotine status: current every day tobacco/nicotine user cigarettes [ Other cigarette details: When vape breaks she returns to cigarettes] and e-cigarettes E-Cigarette Details: vaporizer device and with nicotine E-cig/vape details: 6000 puffs in each device, uses 3 per month Quit status (tobacco/nicotine): not considering quitting Second hand smoke exposure: Yes Alcohol intake: current Alcohol intake frequency: few times a month Alcohol type: hard liquor Substance/Drug Use: current Substance/Drug use frequency: daily Other substance/drug use details: medical card Additional social history: Patient now vapes she states a monthly vape will last her 3 months but this is not very specific. She wants full code as discussed today with aCsper Blas MD on 01/27/2025 she tells me she quit using marijuana about 3 months ago and she quit alcohol 3 months ago. 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: [employer]ATH[employer] S[employer]ER service: No Current occupational status: disabled Current occupational exposures/hazards: No Pets and animals: Yes Pets & animals: cat(s) Leisure activites: music, games and other Leisure activities details: watch a lot of movies Sexually active: No Do you think of yourself as: Straight/Heterosexual Current gender identity: Female Aparna/Rastafarian: Denominational Special [place] needs: No Agree to transfusion: Yes Female Reproductive History: Para: 2 Spontaneous abortions: Yes (10) Physical Exam 2 Const: COMMON NORMALS: average body habitus and patient oriented x3 EXAM LIMITATIONS: behavioral limitations HENMT: COMMON NORMALS: normocephalic and atraumatic HEAD & SCALP: n ormocephalic and atraumatic Chest: COMMONS NORMALS: normal inspection of the chest and normal palpation of entire chest wall Resp: COMMON NORMALS: normal respiratory effort, No retractions and No use of accessory muscles Cardio: COMMON NORMALS: regular rate and regular rhythm RATE: regular rate RHYTHM: regular rhythm GI: COMMON NORMALS: Normal to inspection, nondistended, normoactive bowel sounds present, Soft to palpation, non-tender and No hepatosplenomegaly present PALPATION: Yes Soft to palpation and Yes No hepatosplenomegaly present : COMMON NORMALS: Yes no CVA tenderness BLADDER/KIDNEY EXAM: Yes no CVA tenderness Back/Pelvis: COMMON NORMALS: no CVA tenderness Extremity: COMMON NORMALS: normal to inspection, full ROM and capillary refill normal Neuro: COMMON NORMALS: patient oriented x3 Psych: SPEECH: Yes Pressured speech present MOOD & AFFECT: Yes irritable, Yes tearful and Yes expansive affect THOUGHT PROCESS: incoherent, disorganized, Flight of ideas present and Tangential thought process present THOUGHT CONTENT: Yes Suicidality present INSIGHT: Poor insight present (Psych) JUDGEMENT: Poor judgement present (Psych) Course 2 Consultations: Consultation #1: Dr. Archibald accepted Vital Signs: Vital signs: Vital Signs Temperature 98.1 F 02/22/25 21:06 Pulse Rate 95 02/22/25 21:58 Respiratory Rate 14 02/22/25 21:58 Blood Pressure 169/98 02/22/25 21:06 Pulse Oximetry 99 02/22/25 21:58 Oxygen Delivery Me thod Room Air 02/22/25 21:58 MDM - Psych Medical Decision Making Patient is 59-year-old female with chronic liver disease presents to the ED with suicide ideation by police. Affidavits have been placed in the chart. Unfortunately, she is requiring a 96-hour hold and will not go on a voluntary basis. She has made threats repeatedly about killing herself and self-harm. She has discussed hanging herself, not being here, going home to kill herself, and she will not stay here under any circumstances. She was willing to take Zyprexa for anxiety, however with her outburst, she was required ketamine. Urinalysis is pending. Given her ammonia level is 71, I did order dosage of lactulose. She does not appear however to be encephalopathic Lab Data 02/22/25 22:30 02/22/25 22:30 Laboratory Results WBC 4.34 10^3/uL (3.29-11.43) 02/22/25: RBC 3.05 10^6/uL (3.85-5.65) L 02/22/25 22:30 Hgb 9.30 g/dL (11.27-16.99) L 02/22/25: Hct 27.1 % (36-47) L 02/22/25: MCV 88.9 fl (85-98) 02/22/25: MCH 30.5 pg (27-33) 02/22/25: MCHC 34.3 g/dL (30-55) 02/22/25: RDW 15.4 % (12.1-15.1) H 02/22/25: Plt Count 73 10^3/cmm (157-399) L 02/22/25: MPV 9.0 fL (7.4-10.4) 02/22/25: Neut % (Auto) 61.1 % 02/22/25: Lymph % (Auto) 25.6 % 02/22/25: Davis % (Auto) 7.6 % 02/22/25: Eos % (Auto) 4.6 % 02/22/25: Baso % (Auto) 0.9 % 02/22/25: Neut # (Auto) 2.65 10^3/uL (1.8-7.7) 02/22/25: Lymph # (Auto) 1.1 10^3/uL (0.8-4.8) 02/22/25: Davis # (Auto) 0.3 10^3/uL (0.2-0.9) 02/22/25: Eos # (Auto) 0.2 10^3/uL (0.0-0.8) 02/22/25 22:30 Baso # (Auto) 0.0 10^3/uL (0.0-0.1) 02/22/25 22: Nucleated RBC % (auto) 0 % 02/22/25: Nucleated RBCs # 0.0 /100WBC 02/22/25 22: PT 15.90 SECONDS (12.1-14.9) H 02/22/25 22: INR 1.19 (0.8-1.2) 02/22/25 22:30 Sodium 145 mmol/L (136-145) 02/22/25 22:30 Potassium 3.4 mmol/L (3.5-5.1) L 02/22/25: Chloride 112 mmol/L (98-107) H 02/22/25 22: Carbon Dioxide 24 mmol/L (22-29) 02/22/25: Anion Gap 12.4 (5-19) 02/22/25 22: BUN 7 mg/dL (6-20) 02/22/25 22: Creatinine 0.4 mg/dL (0.5-0.9) L 02/22/25 22:30 GFR Calculation 164.5 mL/min (90-130) H 02/22/25 22: Glucose 121 mg/dL (65-115) H 02/22/25 22: Calculated Osmolality 299 mOsm/kg (285-295) H 02/22/25 22:30 Calcium 8.8 mg/dL (8.5-10.5) 02/22/25: Total Bilirubin 1.7 mg/dL (0.15-1.2) H 02/22/25 22:30 AST 42 U/L (0-32) H 02/22/25 22:30 ALT 19 U/L (0-33) 02/22/25 22:30 Alkaline Phosphatase 126 U/L (35-105) H 02/22/25 22: Ammonia 71 umol/L (11-51) H 02/22/25 22:30 Total Protein 5.5 g/dL (6.6-8.7) L 02/22/25 22: Albumin 3.0 g/dL (3.5-5.2) L 11/16/25 22:30 Globulin 2.5 g/dL (1.3-4.6) 02/22/25 22:30 TSH 1.24 uIU/mL (0.27-4.20) 02/22/25 22:30 Salicylates < 0.3 mg/dL (3-10) L 02/22/25 22:30 Acetaminophen < 5.0 ug/mL (10-30) L 02/22/25 22:30 Ethyl Alcohol 250 mg/dL (0-10) H 02/22/25 22:30 No radiology studies performed this visit Discharge Plan Discharge Patient Disposition: Xfer Psychiatric Hosp Clinical Impression: Suicidal ideation Condition: Stable Coding Level of Care Code ED Prints And Drawings Curator for Chg Fwd Documented by User: Pablito Pitts DO 02/23/25 04:06 HPI - Psych 2 General: Chief Complaint: ER Hold Stated Complaint: mhe Time Seen by Provider: 02/22/25 21:06 Related Data Home Medications ?Medication ?Instructions ?Recorded ?Confirmed ziprasidone HCl 20 mg capsule 20 mg PO BID PRN Anxiety 07/23/24 02/09/25 buspirone 5 mg tablet 5 mg PO BID PRN Anxiety 08/3102/09/25 epinephrine 0.3 mg/0.3 mL See Rx Instructions .Route . COMPLEX 11/24/24 02/09/25 injection, auto-injector nitroglycerin 0.4 mg sublingual See Rx Instructions .R oute .COMPLEX 11/24/24 02/09/25 tablet zolpidem 5 mg tablet (Ambien) 5 mg PO DAILY 01/07/25 1 04/11/24 zwyqpswo-uoe-hiyxy ac 400 1 tab PO DAILY 01/27/2507/01 mcg-calcium carb 500 mg-vit K1 20 mcg tablet (Women's 50 Plus Multivitamin) spironolactone 100 mg tablet 100 mg PO DAILY 01/27/25 02/09/25 Previous Rx's ?Medication ?Instructions ?Recorded hydroxyzine pamoate 25 mg capsule 25 mg PO BID PRN anx iety #14 caps 01/10/25 furosemide 40 mg tablet 40 mg PO BID@08,16 #60 tabs 01/30/25 magnesium oxide 400 mg (241.3 mg 400 mg PO BID #60 tab s 01/30/25 magnesium) tablet melatonin 3 mg tablet 3 mg PO BEDTIME #30 tabs potassium chloride 20 mEq 20 meq PO BID #60 tabs 01/30 tablet,extended release(part/cryst) (Klor-Con M) Allergies Allergy/AdvReac Type Severity Reaction Status Date / Time venom-wasp Allergy Severe ALGY-Anaphy Verified 02/09/25 08:44 laxis Sulfa (Sulfonamide Allergy Intermediate Hives Verified 02/09/25 08:44 Antibiotics) aspirin Allergy Unknown Unknown Verified 02/09/25 08:44 NSAIDS (Non-Steroidal Allergy Unknown Unknown Verified 02/09/25 08:44 Anti-Inflamma sumatriptan (From Imitrex) Allergy Unknown Unknown Verified 02/09/25 08:44 ibuprofen (From NeoProfen Allergy UNKNOWN Verified 02/09/25 08:44 (ibuprofen lysn)(PF)) metoclopramide (From Reglan) Allergy ALGY-Joint Verified 02/09/25 08:44 Pain bupropion (From Wellbutrin) AdvReac Intermediate ALGY-Rash Verified 02/09/25 08:44 prednisone AdvReac Intermediate Heart rate Verified 02/09/25 08:44 was heavy. [place] sick. Cephalosporins AdvReac Unknown Unknown Verified 02/09/25 08:44 [facility] ED 2 PFS: Medical History (Updated 02/22/25 @ 21:35 by JEFF Kaur) Ascites due to alcoholic cirrhosis PTSD (post-traumatic stress disorder) Suicidal ideation Cannabis dependence, episodic use Major depressive disorder, recurrent, severe with psychotic symptoms Nicotine dependence due to vaping tobacco product Vaping nicotine Chronic post-traumatic stress disorder Alcohol use disorder, severe, dependence Psychiatric care Uncontrolled type 2 diabetes with neuropathy Sacroiliitis H/O Belkys-Valenzuela syndrome (~07/2019) EGD at [facility]. EGD 10/26 negative. Chronic back pain Congestive heart failure Diabetes mellitus MONTANO (nonalcoholic steatohepatitis) Borderline personality disorder Bilateral primary osteoarthritis of hip Surgical History History of hysterectomy History of esophagogastroduodenoscopy H/O colonoscopy H/O cervical spine surgery Family History Son Suicide September 2019 Other Cancer Hypertension Psychiatric illness Social History Smoking and tobacco/nicotine status: current every day tobacco/nicotine user cigarettes [ Other cigarette details: When vape breaks she returns to cigarettes] and e-cigarettes E-Cigarette Details: vaporizer device and with nicotine E-cig/vape details: 6000 puffs in each device, uses 3 per month Quit status (tobacco/nicotine): not considering quitting Second hand smoke exposure: Yes Alcohol intake: current Alcohol intake frequency: few times a month Alcohol type: hard liquor Substance/Drug Use: current Substance/Drug use frequency: daily Other substance/drug use details: medical card Additional social history: Patient now vapes she states a monthly vape will last her 3 months but this is not very specific. She wants full code as discussed today with Casper Blas MD on 01/27/2025 she tells me she quit using marijuana about 3 months ago and she quit alcohol 3 months ago. 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: LEATH[employer] S[employer]UBBER service: No Current occupational status: disabled Current occupational exposures/hazards: No Pets and animals: Yes Pets & animals: cat(s) Leisure activites: music, games and other Leisure activities details: watch a lot of movies Sexually active: No Do you think of yourself as: Straight/Heterosexual Current gender identity: Female Aparna/Rastafarian: Denominational Special ap[place] needs: No Agree to transfusion: Yes Course 2 Vital Signs: Vital signs: Vital Signs Temperature 98.1 F 02/22/25 21:06 Pulse Rate 95 02/22/25 21:58 Respiratory Rate 14 02/22/25 21:58 Blood Pressure 169/98 02/22/25 21:06 Pulse Oximetry 99 02/22/25 21:58 Oxygen Delivery Me thod Room Air 02/22/25 21:58 MDM - Psych Medical Decision Making Patient is 59-year-old female with chronic liver disease presents to the ED with suicide ideation by police. Affidavits have been placed in the chart. Unfortunately, she is requiring a 96-hour hold and will not go on a voluntary basis. She has made threats repeatedly about killing herself and self-harm. She has discussed hanging herself, not being here, going home to kill herself, and she will not stay here under any circumstances. She was willing to take Zyprexa for anxiety, however with her outburst, she was required ketamine. Urinalysis is pending. Given her ammonia level is 71, I did order dosage of lactulose. She does not appear however to be encephalopathic Patient was originally seen by Ms. Emanuel PA-C. I agree with her history, evaluation, and management. Orders written for neuropsychiatric admission. Lab Data 02/22/25 22:30 02/22/25 22:30 Laboratory Results WBC 4.34 10^3/uL (3.29-11.43) 02/22/25 22:30 RBC 3.05 10^6/uL (3.85-5.65) L 02/22/25 22:30 Hgb 9.30 g/dL (11.27-16.99) L 02/22/25 22:30 Hct 27.1 % (36-47) L 02/22/25 22:30 MCV 88.9 fl (85-98) 02/22/25 22:30 MCH 30.5 pg (27-33) 02/22/25 22:30 MCHC 34.3 g/dL (30-55) 02/22/25 22:30 RDW 15.4 % (12.1-15.1) H 02/22/25 22:30 Plt Count 73 10^3/cmm (157-399) L 02/22/25 22:30 MPV 9.0 fL (7.4-10.4) 02/22/25 22:30 Neut % (Auto) 61.1 % 02/22/25 22:30 Lymph % (Auto) 25.6 % 02/22/25 22:30 Davis % (Auto) 7.6 % 02/22/25 22:30 Eos % (Auto) 4.6 % 02/22/25 22:30 Baso % (Auto) 0.9 % 02/22/25 22: Neut # (Auto) 2.65 10^3/uL (1.8-7.7) 02/22/25 22: Lymph # (Auto) 1.1 10^3/uL (0.8-4.8) 02/22/25 22:30 Davis # (Auto) 0.3 10^3/uL (0.2-0.9) 02/22/25 22: Eos # (Auto) 0.2 10^3/uL (0.0-0.8) 02/22/25: Baso # (Auto) 0.0 10^3/uL (0.0-0.1) 02/22/25: Nucleated RBC % (auto) 0 % 02/22/25: Nucleated RBCs # 0.0 /100WBC 02/22/25 22: PT 15.90 SECONDS (12.1-14.9) H 02/22/25 22:30 INR 1.19 (0.8-1.2) 02/22/25 22: Sodium 145 mmol/L (136-145) 02/22/25 22:30 Potassium 3.4 mmol/L (3.5-5.1) L 02/22/25 22: Chloride 112 mmol/L (98-107) H 02/22/25 22:30 Carbon Dioxide 24 mmol/L (22-29) 02/22/25 22:30 Anion Gap 12.4 (5-19) 02/22/25 22:30 BUN 7 mg/dL (6-20) 02/22/25 22:30 Creatinine 0.4 mg/dL (0.5-0.9) L 02/22/25 22:30 GFR Calculation 164.5 mL/min (90-130) H 02/22/25 22:30 Glucose 121 mg/dL (65-115) H 02/22/25 22:30 Calculated Osmolality 299 mOsm/kg (285-295) H 02/22/25 22:30 Calcium 8.8 mg/dL (8.5-10.5) 02/22/25 22:30 Total Bilirubin 1.7 mg/dL (0.15-1.2) H 02/22/25 22:30 AST 42 U/L (0-32) H 02/22/25 22:30 ALT 19 U/L (0-33) 02/22/25 22:30 Alkaline Phosphatase 126 U/L (35-105) H 02/22/25 22:30 Ammonia 71 umol/L (11-51) H 02/22/25 22:30 Total Protein 5.5 g/dL (6.6-8.7) L 02/22/25 22:30 Albumin 3.0 g/dL (3.5-5.2) L 02/22/25 22:30 Globulin 2.5 g/dL (1.3-4.6) 02/22/25 22:30 TSH 1.24 uIU/mL (0.27-4.20) 02/22/25 22:30 Salicylates < 0.3 mg/dL (3-10) L 02/22/25 22:30 Acetaminophen < 5.0 ug/mL (10-30) L 02/22/25 22:30 Ethyl Alcohol 250 mg/dL (0-10) H 02/22/25 22:30 Discharge Plan Discharge Patient Disposition: Xfer Psychiatric Hosp Clinical Impression: Suicidal ideation Condition: Stable Coding Level of Care Code ED Prints And Drawings Curator for Rober Arellano
[2025-02-22] MEDS: ketamine 100 mg/mL Inj 5 mL 65 MG IM (21:34)
--- NOTE | 2025-02-22 21:39 | PC.NURSE ---
[facility] Pt served with copy of [facility] Rights form by this RN and security. Pt loud, animated and acting intoxicated, slurring words and yelling at Security You rape women, all men rape woman! I am not a criminal, I am a victim. How do you sleep knowing you do this to innocent people?! . Copy of Rights given to pt, PA @ bedside, primary RN @ bedside.
[2025-02-22 21:58] VITALS: PULSE 95; RESP 14; O2SAT 99
[2025-02-22 22:37] LABS: Hematocrit 27.1 % (36-47); Hemoglobin 9.30 g/dL (11.27-16.99); Mean Corpuscular HGB Conc 34.3 g/dL (30-55); Mean Corpuscular Hemoglobin 30.5 pg (27-33); Mean Corpuscular Volume 88.9 fl (85-98); Nucleated Red Blood Cells % 0 %; Platelet Count 73 10^3/cmm (157-399); Red Blood Count 3.05 10^6/uL (3.85-5.65); White Blood Count 4.34 10^3/uL (3.29-11.43)
[2025-02-22 22:59] LABS: Ammonia 71 umol/L (11-51)
[2025-02-22 23:09] LABS: Acetaminophen < 5.0 ug/mL (10-30); Alanine Aminotransferase 19 U/L (0-33); Albumin Level 3.0 g/dL (3.5-5.2); Alcohol Level 250 mg/dL (0-10); Alkaline Phosphatase 126 U/L (35-105); Anion Gap 12.4 (5-19); Aspartate Amino Transferase 42 U/L (0-32); Blood Urea Nitrogen 7 mg/dL (6-20); Calcium 8.8 mg/dL (8.5-10.5); Carbon Dioxide 24 mmol/L (22-29); Chloride 112 mmol/L (98-107); Creatinine Clr Calc Pharmacy 161.1161; Globulin 2.5 g/dL (1.3-4.6); Glucose 121 mg/dL (65-115); Osmolality Calculated 299 mOsm/kg (285-295); Potassium 3.4 mmol/L (3.5-5.1); Salicylate < 0.3 mg/dL (3-10); Sodium 145 mmol/L (136-145); Thyroid Stimulating Hormone 1.24 uIU/mL (0.27-4.20); Total Protein 5.5 g/dL (6.6-8.7)
[2025-02-22 23:16] LABS: INR 1.19 (0.8-1.2); Prothrombin Time 15.90 SECONDS (12.1-14.9)
[2025-02-23] VITALS: BP 128/66; PULSE 59; O2SAT 100
--- NOTE | 2025-02-23 01:48 | PC.NURSE ---
Pt has lactulose and K+ 40 meq ordered. Pt is sedated from medication. Pt unable to swallow medications at this time. Pt asleep with unlabored and equal respirations. [employer] notified and aware of delay. Instructed to give medications when pt is more alert and retime medication.
--- NOTE | 2025-02-23 02:40 | PC.NURSE ---
Pt given sedatives prior to arrival, admission assessment to be completed when pt is more alert. Unable to obtain urine sample at this time pt has had an episode of incontinence and not alert enough to provide sample. Pt asleep with respirations and movement.
[2025-02-23 05:22] LABS: Glucose Urine UA Negative (Normal); Nitrate Urine Negative (Negative); Specific Gravity, Urine 1.008 (1.005-1.030)
[2025-02-23] MEDS: lactulose oral liq 20 gm/30 mL UDC 30 GM PO (05:23)
[2025-02-23 05:27] LABS: Add Urine Microscopic? YES
[2025-02-23 05:31] LABS: PCP Screen Urine Negative (Negative)
[2025-02-23 10:30] VITALS: BP 148/72; PULSE 77; RESP 16; TEMP 36.8; O2SAT 99
--- NOTE | 2025-02-23 10:31 | W.PM.NPUH&PS ---
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: [employer] service: No Current occupational status: disabled Current occupational exposures/hazards: No Pets and animals: Yes Pets & animals: cat(s) Leisure activites: music, games and other Leisure activities details: watch a lot of movies Sexually active: No Do you think of yourself as: Straight/Heterosexual Current gender identity: Female Aparna/Mosque: Voodoo Special aparna needs: No Agree to transfusion: Yes Female Reproductive History: Para: 2 Spontaneous abortions: Yes (10) Mental Status Exam MSE Comments: Patient is a casually dressed white female who was alert and oriented to person, place and time currently who was pale and appeared in no acute distress. There was no evidence of any abnormal involuntary motor movements tics or tremors appreciated. Her gait was antalgic but otherwise normal. Her hygiene was poor. Her speech was slow but steady with normal volume and prosody. Her mood was described as fine. Her affect appeared mildly restricted. She endorsed no homicidal or suicidal ideation. She did not appear to be responding to internal stimuli. There was no evidence of delusional thinking. Her recent and remote memory appeared limited. Her insight and judgment were impaired. Her impulse control appeared poor. Vitals/I&O/Wt Last Vital Signs Temp 98.1 F 02/22/25 21:06 Pulse 59 L 02/23/25 00:00 Resp 14 02/22/25 21:58 BP 128/66 02/23/25 00:00 Pulse Ox 100 02/23/25 00:00 O2 Del Method Room Air 02/23/25 00:00 Weight last 48 hrs Weight 65.771 kg Data NPU 02/22/25 22:30 02/22/25 22:30 A&P Assessment and plan 1. Depression: 2. Suicidal ideation: 3. Alcohol use disorder, severe, dependence: 4. Paronychia due to ingrown nail: 5. Borderline personality disorder: Plan: This is a 59-year-old white female with multiple inpatient hospitalizations with a history of alcohol dependence and depression reporting inititally suicidal ideation in the context of her use of alcohol with poor coping skills. BAL was 250 on arrival with history of significant alcohol withdrawal symptoms as well. She denies any need for the hospitalization but is here on 96 hour hold. 1.? ?Engage? patient in individual, milieu, and group therapy. ?2. ? Start outpatient medications. Evaluate for collateral information. ?3. ? TO-15 minute checks on the unit. ?4.? Recommend sober living treatment at the highest level of care to which the patient is willing to commit. 5. ? CIWA protocol 6. Evaluate for safety against the context of the 96-hour hold. PDMP PDMP Reviewed: Not Reviewed Involuntary Hold Information 96 Hour Hold: 96 Hour Involuntary Admission: Yes Other Hold: Hold End Date: 06/02/24 Attestations NPU Medical Necessity Statement*: Inpatient hospitalization is medically necessary and deemed to be the clinically appropriate intervention at this time. We will monitor and initiate medications while making changes as indicated. She will be in the hospital for over 2 midnights. Her likely length of stay is 3-5 days. Coding Level of Care Code Acute Code for [facility] Fwd Diagnoses Depression F32.A Suicidal ideation R45.851 Alcohol use disorder, severe, dependence F10.20 Paronychia due to ingrown nail Borderline personality disorder F60.3
--- NOTE | 2025-02-23 10:48 | PC.NURSE ---
medications reconciled
--- NOTE | 2025-02-23 13:47 | PC.NURSE ---
prn Geodon 20 mg given po per pt c/o stated anxiety. smiling and laughing while asking staff for anxiety med
[2025-02-23 13:54] VITALS: BP 140/75; PULSE 78; RESP 16; TEMP 37.4; O2SAT 99
[2025-02-23] MEDS: MELATONIN 3 MG TABLET PO (19:57)
[2025-02-23 21:06] VITALS: BP 117/53; PULSE 91; RESP 18; TEMP 37.3; O2SAT 99
[2025-02-24 06:00] VITALS: BP 125/72; PULSE 69; RESP 18; TEMP 36.3; O2SAT 99
[2025-02-24 14:00] VITALS: BP 119/61; PULSE 64; RESP 16; TEMP 36.7; O2SAT 100
--- NOTE | 2025-02-24 15:24 | W.PM.NPUPNS ---
Subjective NPU Subjective: 59-year-old female with alcohol dependence, depression, and borderline personality disorder admitted with suicidal ideation. The patient had reported that she was feeling better. She had reported no desire to reduce her alcohol consumption. She had continued to require Ativan for alcohol related withdrawal symptoms. She had not endorsed any desire to stop the use of alcohol but continues to report having pain in her legs secondary to neuropathy. She had been redirectable on the unit. She had complained of some fatigue but otherwise reported that she was feeling a little better as she had denied any suicidal thoughts and stated that her relationship with a man of several years was now over. Mental Status Exam MSE Comments: Patient is a casually dressed white female who was alert and oriented to person, place and time currently who was pale and appeared in no acute distress. There was no evidence of any abnormal involuntary motor movements tics or tremors appreciated. Her gait was antalgic but otherwise normal. Her hygiene was improving. Her speech was slow but steady with normal volume and prosody. Her mood was described as fine. Her affect appeared mildly restricted. She endorsed no homicidal or suicidal ideation. She did not appear to be responding to internal stimuli. There was no evidence of delusional thinking. Her recent and remote memory appeared limited. Her insight and judgment were impaired. Her impulse control appeared poor. Vitals/I&O/Wt Last Vital Signs Temp 98.0 F 02/24/25 14:00 Pulse 64 02/24/25 14:00 Resp 16 02/24/25 14:00 BP 119/61 02/24/25 14:00 Pulse Ox 100 02/24/25 14:00 O2 Del Method Room Air 02/24/25 14:00 Weight last 48 hrs Weight 65.771 kg Data NPU 02/22/25 22:30 02/22/25 22:30 A&P Assessment and plan 1. Depression: 2. Suicidal ideation: 3. Alcohol use disorder, severe, dependence: 4. Paronychia due to ingrown nail: 5. Borderline personality disorder: Plan: This is a 59-year-old white female with multiple inpatient hospitalizations with a history of alcohol dependence and depression reporting inititally suicidal ideation in the context of her use of alcohol with poor coping skills. BAL was 250 on arrival with history of significant alcohol withdrawal symptoms as well. She denies any need for the hospitalization but is here on 96 hour hold. 1.? ?Engage? patient in individual, milieu, and group therapy. ?2. ? Start outpatient medications. Evaluate for collateral information. ?3. ? TO-15 minute checks on the unit. ?4.? Recommend sober living treatment at the highest level of care to which the patient is willing to commit. 5. ? [facility] protocol 6. Evaluate for safety against the context of the 96-hour hold. PDMP PDMP Reviewed: Not Reviewed Involuntary Hold Information Hold Status: Legal Status: 96 Hour Hold Date/Time Hold Expires: 02/27/25@0001 96 Hour Hold: 96 Hour Involuntary Admission: Yes Other Hold: Hold End Date: 06/02/24 Attestations NPU Medical Necessity Statement*: Inpatient hospitalization is medically necessary and deemed to be the clinically appropriate intervention at this time. We will monitor and initiate medications while making changes as indicated. Her likely length of stay is 2-3 days. Coding Level of Care Code Acute Code for [facility] Fwd Diagnoses Depression F32.A Suicidal ideation R45.851 Alcohol use disorder, severe, dependence F10.20 Paronychia due to ingrown nail Borderline personality disorder F60.3
[2025-02-24 20:02] VITALS: BP 126/66; PULSE 72; RESP 18; TEMP 36.9; O2SAT 100
[2025-02-24] MEDS: MELATONIN 3 MG TABLET PO (20:07)
[2025-02-25 06:00] VITALS: BP 93/55; PULSE 68; RESP 15; TEMP 37; O2SAT 98
[2025-02-25 14:00] VITALS: BP 102/53; PULSE 62; RESP 16; TEMP 36.6; O2SAT 100
--- NOTE | 2025-02-25 14:51 | P.NPUPN_ITS ---
Subjective NPU 2 Subjective: 59-year-old female with alcohol dependen ce, depression, and borderline personality disorder admitted with suicidal ideation. Patient denied any suicidal ideation. She continued to report that she was feeling somewhat fatigued and tired. She had required some Ativan to help with alcohol-related withdrawal symptoms. The patient had endorsed anemia and reported that she had constipation while reporting the presence of a tinge of blood in her stools. Patient had a history of ascites and a history of a Belkys-Valenzuela tear. She reported no desire for inpatient substance abuse treatment despite significant physical adverse consequences from her alcohol use. Mental Status Exam 2 MSE Comments: Patient is a casually dressed white female who was alert and oriented to person, place and time currently who was pale and appeared in no acute distress. She appeared older than her stated age. There was no evidence of any abnormal involuntary motor movements tics or tremors appreciated. Her gait was antalgic but otherwise normal. Her hygiene was improving. Her speech was slow but steady with normal volume and prosody. Her mood was described as okay. Her affect appeared superficially euthymic. She endorsed no homicidal or suicidal ideation. She did not appear to be responding to internal stimuli. There was no evidence of delusional thinking. Her recent and remote memory appeared limited. Her insight and judgment were impaired. Her impulse control appeared poor. Vitals/I&O/Wt Last Vital Signs Temp 98.6 F 02/25/25 06:00 Pulse 68 02/25/25 06:00 Resp 15 02/25/25 06:00 BP 93/55 02/25/25 06:00 Pulse Ox 98 02/25/25 06:00 O2 Del Method Room Air 02/25/25 06:00 Data NPU 02/22/25 22:30 02/22/25 22:30 A&P Assessment and plan 1. Depression: 2. Suicidal ideation: 3. Alcohol use disorder, severe, dependence: 4. Paronychia due to ingrown nail: 5. Borderline personality disorder: Plan: This is a 59-year-old white female with multiple inpatient hospitalizations with a history of alcohol dependence and depression reporting inititally suicidal ideation in the context of her use of alcohol with poor coping skills. BAL was 250 on arrival with history of significant alcohol withdrawal symptoms as well. She denies any need for the hospitalization but is here on 96 hour hold. 1.? ?Engage? patient in individual, milieu, and group therapy. ?2. ? Start outpatient medications. Evaluate for collateral information. ?3. ? TO-15 minute checks on the unit. ?4.? Recommend sober living treatment at the highest level of care to which the patient is willing to commit. 5. ? CIWA protocol 6. Evaluate for safety against the context of the 96-hour hold. 7. Patient to be d/c tommorow 72 hours after last reported use. 8. Medicine consulted to evaluate whether patient has GI bleed. PDMP PDMP Reviewed: Not Reviewed Involuntary Hold Information 2 Hold Status: Legal Status: 96 Hour Hold Date/Time Hold Expires: 02/27/25@ 00:01 96 Hour Hold: 96 Hour Involuntary Admission: Yes Other Hold: Hold End Date: 06/02/24 Attestations NPU 2 Medical Necessity Statement*: Inpatient hospitalization is medically necessary and deemed to be the clinically appropriate intervention at this time. We will monitor and initiate medications while making changes as indicated. Her likely length of stay is 1-2 days. Coding Level of Care Code Acute Code for [facility] Fwd Diagnoses Depression F32.A Suicidal ideation R45.851 Alcohol use disorder, severe, dependence F10.20 Paronychia due to ingrown nail Borderline personality disorder F60.3
--- NOTE | 2025-02-25 15:41 | PM.CONSULT ---
Providers/Reason For Consult Consulting Physician/Specialty*: Ranjith Horan, Hospitalist Reason for Consult*: Reports of bloody stool Requesting Physician: Dr. Manjit Looney Attending Physician: Manjit Looney MD Primary Care Provider: Aida Vincent History of Present Illness History of Present Illness Kay Calles is a 59 year old female who was admitted to the psych floor reports 3 days ago because of alcohol related problems. This afternoon, she reports to the psychiatric physician that she has been having some bloody stool. Given reported history of GI varices (apparent from chronic alcohol consumption), I was consulted to evaluate patient. Patient reports history of irritable bowel disease, which also comes sometimes with diarrhea. The diarrhea is always mixed with some streaks of blood. This is an old problem that has been going on for the past 20 something years. She reports that today's episode was has relatively little amount of blood mixed in the stool, and only typically resolves within a day or 2. She denies any increased or unusual diarrhea, abdominal pain, constipation, nausea, or vomiting. No fever, chest pain or difficulty breathing associated. 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 She also reports no history of hemorrhoids, which is also stable. Review of Systems Narrative: General: Negative for fever, headaches, dizziness or weakness. Respiration: Negative for shortness of breath, cough or wheezing. CVS: Negative for chest pain, palpitations or dyspnea on exertion. UGS: Negative for dysuria, urgency or increased urinary frequency. All other systems reviewed, and essentially negative, except as in the HPI. Medications/Allergies Home Medications ?Medication ?Instructions ?Recorded ?Confirmed ?Last Taken ?Type ziprasidone HCl 20 mg capsule 20 mg PO BID PRN Anxiety 07/23/24 02/23/25 01/24/25 History epinephrine 0.3 mg/0.3 mL See Rx Instructions .Route .COMPLEX 11/24/24 02/23/25 Unknown History injection, auto-injector nitroglycerin 0.4 mg sublingual See Rx Instructions .Route .COMPLEX 11/24/24 02/23/25 Unknown History tablet xdisnbom-bhf-mhxlg ac 400 1 tab PO DAILY 01/27/25 02/23/25 01/25/25 History mcg-calcium carb 500 mg-vit K1 20 mcg tablet (Women's 50 Plus Multivitamin) spironolactone 100 mg tablet 100 mg PO DAILY 01/27/25 02/23/25 01/25/25 History magnesium oxide 400 mg (241.3 mg 400 mg PO BID #60 tabs 01/30/25 02/23/25 Unknown Rx magnesium) tablet melatonin 3 mg tablet 3 mg PO BEDTIME #30 tabs 01/30/25 02/23/25 Unknown Rx potassium chloride 20 mEq 20 meq PO BID #60 tabs 01/30/25 02/23/25 Unknown Rx tablet,extended release(part/cryst) (Klor-Con M) furosemide 80 mg tablet See Rx Instructions .Route .COMPLEX 02/23/25 02/23/25 Unknown History tizanidine 4 mg tablet 4 mg PO BEDTIME 02/23/25 02/23/25 Unknown History Allergies Allergy/AdvReac Type Severity Reaction Status Date / Time venom-wasp Allergy Severe ALGY-Anaphy Verified 02/09/25 08:44 laxis Sulfa (Sulfonamide Allergy Intermediate Hives Verified 02/09/25 08:44 Antibiotics) aspirin Allergy Unknown Unknown Verified 02/09/25 08:44 NSAIDS (Non-Steroidal Allergy Unknown Unknown Verified 02/09/25 08:44 Anti-Inflamma sumatriptan (From Imitrex) Allergy Unknown Unknown Verified 02/09/25 08:44 ibuprofen (From NeoProfen Allergy UNKNOWN Verified 02/09/25 08:44 (ibuprofen lysn)(PF)) metoclopramide (From Reglan) Allergy ALGY-Joint Verified 02/09/25 08:44 Pain bupropion (From Wellbutrin) AdvReac Intermediate ALGY-Rash Verified 02/09/25 08:44 prednisone AdvReac Intermediate Heart rate Verified 02/09/25 08:44 was heavy. [place] sick. Cephalosporins AdvReac Unknown Unknown Verified 02/09/25 08:44 Current Medications Generic Name Dose Route Start Last Admin Trade Name Freq PRN Reason Stop Dose Admin Acetaminophen 650 mg 02/23/25 01:02 02/24/25 17:31 Acetaminophen 325 Mg Tablet PO 650 mg Q4H PRN Administration MILD PAIN Diphenhydramine HCl 50 mg 02/24/25 18:00 02/24/25 18:15 Diphenhydramine 50 Mg Capsule PO 50 mg Q4H PRN Administration EXTRAPYRAMIDAL SYMPTOM Furosemide 80 mg 02/24/25 06:00 02/25/25 06:35 Furosemide 40 Mg Tablet PO 80 mg QAM JENS Administration Furosemide 40 mg 02/24/25 14:00 02/25/25 15:15 Furosemide 40 Mg Tablet PO 40 mg DAILY@1400 JENS Administration Haloperidol 5 mg 02/23/25 01:02 02/24/25 20:06 Haloperidol 5 Mg Tablet PO 5 mg Q4H PRN Administration AGITATION Hydroxyzine Pamoate 50 mg 02/23/25 01:02 02/25/25 08:17 Hydroxyzine 25 Mg Capsule PO 50 mg Q6H PRN Administration ANXIETY Ibuprofen 600 mg 02/23/25 10:30 02/24/25 20:11 Ibuprofen 600 Mg Tablet PO 600 mg Q6H PRN Administration MODERATE PAIN Loperamide HCl 2 mg 02/23/25 01:02 02/25/25 11:15 Loperamide 2 Mg Capsule PO 2 mg Q6H PRN Administration DIARRHEA Magnesium Oxide 400 mg 02/23/25 21:00 02/25/25 08:17 Magnesium Oxide 400 Mg Tablet PO 400 mg 0900,2100 JENS Administration Melatonin 3 mg 02/23/25 21:00 02/24/25 20:07 Melatonin 3 Mg Tablet PO 3 mg BEDTIME JENS Administration Nicotine 1 patch 02/23/25 01:02 02/25/25 08:15 Nicotine 21 Mg Patch TRANSDERMA 1 patch DAILY PRN Administration NICOTINE WITHDRAWAL Potassium Chloride 20 meq 02/23/25 21:00 02/25/25 08:15 Potassium Chloride Er 20 Meq Tablet PO 20 meq 0900,2100 JENS Administration Spironolactone 100 mg 02/24/25 09:00 02/25/25 08:15 Spironolactone 25 Mg Tablet PO 100 mg DAILY JENS Administration Tizanidine HCl 4 mg 02/23/25 21:00 02/24/25 20:07 Tizanidine 4 Mg Tablet PO 4 mg BEDTIME JENS Administration Trazodone HCl 50 mg 02/23/25 01:02 02/23/25 19:55 Trazodone 50 Mg Tablet PO 50 mg BEDTIME PRN Administration SLEEP Ziprasidone 20 mg 02/23/25 10:46 02/23/25 13:45 Ziprasidone Hcl 20 Mg Capsule PO 20 mg BID PRN Administration ANXIETY PFSH Acute PFSH: Medical History Ascites due to alcoholic cirrhosis PTSD (post-traumatic stress disorder) Suicidal ideation Cannabis dependence, episodic use Major depressive disorder, recurrent, severe with psychotic symptoms Nicotine dependence due to vaping tobacco product Vaping nicotine Chronic post-traumatic stress disorder Alcohol use disorder, severe, dependence Psychiatric care Uncontrolled type 2 diabetes with neuropathy Sacroiliitis H/O Belkys-Valenzuela syndrome (~07/2019) EGD at [facility]. EGD 10/26 negative. Chronic back pain Congestive heart failure Diabetes mellitus MONTANO (nonalcoholic steatohepatitis) Borderline personality disorder Bilateral primary osteoarthritis of hip Surgical History History of hysterectomy History of esophagogastroduodenoscopy H/O colonoscopy H/O cervical spine surgery Family History Son Suicide September 2019 Other Cancer Hypertension Psychiatric illness Social History Smoking and tobacco/nicotine status: current every day tobacco/nicotine user cigarettes [ Other cigarette details: When vape breaks she returns to cigarettes] and e-cigarettes E-Cigarette Details: vaporizer device and with nicotine E-cig/vape details: 6000 puffs in each device, uses 3 per month Quit status (tobacco/nicotine): not considering quitting Second hand smoke exposure: Yes Alcohol intake: current Alcohol intake frequency: few times a month Alcohol type: hard liquor Substance/Drug Use: current Substance/Drug use frequency: daily Other substance/drug use details: medical card Additional social history: Patient now vapes she states a monthly vape will last her 3 months but this is not very specific. She wants full code as discussed today with Casper Blas MD on 01/27/2025 she tells me she quit using marijuana about 3 months ago and she quit alcohol 3 months ago. 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: [employer] service: No Current occupational status: disabled Current occupational exposures/hazards: No Pets and animals: Yes Pets & animals: cat(s) Leisure activites: music, games and other Leisure activities details: watch a lot of movies Sexually active: No Do you think of yourself as: Straight/Heterosexual Current gender identity: Female Aparna/Hoahaoism: Taoism Special aparna needs: No Agree to transfusion: Yes Female Reproductive History: Para: 2 Spontaneous abortions: Yes (10) Vitals/I&O/Wt Last Vital Signs Temp 98 F 02/25/25 14:00 Pulse 62 02/25/25 14:00 Resp 16 02/25/25 14:00 BP 102/53 02/25/25 14:00 Pulse Ox 100 02/25/25 14:00 O2 Del Method Room Air 02/25/25 14:00 Physical Exam Narrative: General: Awake and alert. No obvious respiratory distress. Neuro/Psych: Cranial nerves II to XII grossly intact. No obvious focal deficits. Chest/Resp: Bilateral equal air entry; chest clinically clear. CVS: Rhythm: Regular heart rate and rhythm. No obvious murmurs appreciated. GI: Soft and non-tender abdomen. No obvious organomegaly. Extremities: Bilateral equal pulses. No obvious pitting pedal edema. Skin: No obvious skin rashes or significant lesions. Moist mucous membranes. MSK: No obvious joint effusions or bony deformities noted. No apparent muscle tenderness. Data 02/25/25 15:47 02/25/25 15:47 Other Labs: Labs from last 24 hours 02/25/25 15:47 WBC 4.30 RBC 2.98 L Hgb 9.10 L Hct 28.8 L MCV 96.6 MCH 30.5 MCHC 31.6 RDW 15.5 H Plt Count 72 L MPV 10.1 Neut % (Auto) 69.8 Lymph % (Auto) 17.2 Hamilton % (Auto) 7.0 Eos % (Auto) 4.9 Baso % (Auto) 0.9 Neut # (Auto) 3.00 Lymph # (Auto) 0.7 L Hamilton # (Auto) 0.3 Eos # (Auto) 0.2 Baso # (Auto) 0.0 Nucleated RBC % (auto) 0 Nucleated RBCs # 0.0 PT 15.40 H INR 1.14 APTT 33.8 Sodium 138 Potassium 5.6 H Chloride 107 Carbon Dioxide 21 L Anion Gap 15.6 BUN 31 H Creatinine 0.7 GFR Calculation 86.2 L Glucose 116 H Calculated Osmolality 294 Calcium 9.0 Total Bilirubin 1.2 AST 42 H ALT 18 Alkaline Phosphatase 180 H Total Protein 5.6 L Albumin 3.0 L Globulin 2.6 A&P Assessment and plan 1. Bloody diarrhea: Mild; recurrent 2. Acute hyperkalemia: 3. Hx of irritable bowel syndrome: 4. Thrombocytopenia: With history of Belkys-Valenzuela syndrome 5. Ascites due to alcoholic cirrhosis: Plan: Patient symptomatology appears to be am old stable nondescript problem. Otherwise, I take note of the thrombocytopenia, which appears stable. This further increases her risk of bleeding. Otherwise, physical exam is insignificant. I will hold patient's ibuprofen, which she gets on appearing basis, though. I will also give GI protection with oral Protonix. I think it is okay to just watchfully monitor this at this time, as H&H shows no significant drop from previous labs. Coagulation profile is also normal; This further reassures me. Also, given that this is a known alcoholic problem/symptomatology, which patient is used to, I do not see any urgent indication or affordable need for any further aggressive workup or treatment that is indicated at this time. For the acute hyperkalemia, as the patient has a takes potassium supplementation + Lasix and spironolactone; I think would benefit to just hold the potassium chloride at this time. She is on Lasix, and this should further help to correct the hyperkalemia. Otherwise, if the patient remains stable by tomorrow, she can be discharged on home medications, as to be adjusted. Hospitalist will continue to follow peripherally, at least the patient is discharged in 1 to 2 days. PDMP PDMP Reviewed: Not Reviewed Coding Level of Care Code 88531 Diagnoses Bloody diarrhea R19.7 Acute hyperkalemia E87.5 Hx of irritable bowel syndrome Z87.19 Thrombocytopenia D69.6 Ascites due to alcoholic cirrhosis K70.31
[2025-02-25 16:01] LABS: Hematocrit 28.8 % (36-47); Hemoglobin 9.10 g/dL (11.27-16.99); Mean Corpuscular HGB Conc 31.6 g/dL (30-55); Mean Corpuscular Hemoglobin 30.5 pg (27-33); Mean Corpuscular Volume 96.6 fl (85-98); Nucleated Red Blood Cells % 0 %; Platelet Count 72 10^3/cmm (157-399); Red Blood Count 2.98 10^6/uL (3.85-5.65); White Blood Count 4.30 10^3/uL (3.29-11.43)
[2025-02-25 16:21] LABS: INR 1.14 (0.8-1.2); Prothrombin Time 15.40 SECONDS (12.1-14.9)
[2025-02-25 16:23] LABS: Partial Thromboplastin Time 33.8 SECONDS (23.9-36.7)
[2025-02-25 16:27] LABS: Alanine Aminotransferase 18 U/L (0-33); Albumin Level 3.0 g/dL (3.5-5.2); Alkaline Phosphatase 180 U/L (35-105); Anion Gap 15.6 (5-19); Aspartate Amino Transferase 42 U/L (0-32); Blood Urea Nitrogen 31 mg/dL (6-20); Calcium 9.0 mg/dL (8.5-10.5); Carbon Dioxide 21 mmol/L (22-29); Chloride 107 mmol/L (98-107); Globulin 2.6 g/dL (1.3-4.6); Glucose 116 mg/dL (65-115); Osmolality Calculated 294 mOsm/kg (285-295); Potassium 5.6 mmol/L (3.5-5.1); Sodium 138 mmol/L (136-145); Total Protein 5.6 g/dL (6.6-8.7)
[2025-02-25] MEDS: MELATONIN 3 MG TABLET PO (19:48)
[2025-02-25 20:01] VITALS: BP 127/70; PULSE 70; RESP 15; O2SAT 99
[2025-02-26] VITALS (39 sets, daily range): BP systolic 94–139; BP diastolic 51–97; PULSE 54–128; RESP 12–31; TEMP 36.3–36.5; O2SAT 93–100
--- NOTE | 2025-02-26 00:24 | PC.NURSE ---
BEHAVIOR THIS PATIENT IS NOTED TO BE CONFUSED THIS NIGHT COMPARED TO PREVIOUS NIGHTS. PATIENT IS AN INCREASED FALL RISK DUE TO INCREASED CONFUSION AND UNSTEADY GAIT. PATIENT HAS BEEN INCONTINENT OF STOOL TWICE THUS FAR, NEEDING BOTH CLOTHING AND BED LINENS CHANGED. PATIENT WAS GIVEN VISTARIL 50MG AT 194 PER PATIENT REQUEST FOR INCREASED ANXIETY. AT 2340, PATIENT NOTED WITH INCREASED TREMORS AND CONFUSION. AT 2335, CALL WAS PLACED TO DR MERRILL FOR MEDICATION REQUEST. MESSAGE LEFT FOR TO CALL THE NPU UNIT IN REGARDS TO ONE OF THE PATIENTS. ZYPREXA ZYDIS 5MG SL GIVEN AT 2340.
--- NOTE | 2025-02-26 00:24 | PC.NURSE ---
pt came out into hallway looking for a bathroom and stumbling with her walker. This DIRECT CARE SPECIALIST walked with pt to her room in her bathroom. Pt was incont of bowel and bladder. Pt cont to remove her clothes while this DIRECT CARE SPECIALIST cleaned her up and got her dressed. MOUNTING INSPECTOR helped get pt back into bed.
[2025-02-26] MEDS: LORazepam 2 mg/mL INJ 1 mL IM (02:00)
--- NOTE | 2025-02-26 02:00 | PC.NURSE ---
DOCTOR NOTIFICATION DOCTOR MERRILL NOTIFIED OF THIS PATIENTS INCREASED CONFUSION, UNSTEADY GAIT, AND SEVER TREMORS. PATIENT WAS ADMITTED WITH A BLOOD ALCOHOL LEVEL OF 250. [facility]WA ORDER PLACED AT 0002 THIS AM (02/26/25). PATIENT SCORED 17 AT THAT TIME AND 1:1 ORDER PLACED FOR PATIENTS SAFETY. AT 0148, CALL WAS PLACED TO DR MERRILL IN REGARDS TO CIWA SCORE, REQUEST TO GIVE PATIENT ATIVAN 2MG IM PER [facility]WA PROTOCOL WAS GRANTED. IM ATIVAN 2MG WAS ADMINISTERED IN LEFT DELTOID WITH DISTRESS NOTED. PATIENT IS RESTING QUIETLY AT THIS TIME WITH SITTER AT BEDSIDE.
--- NOTE | 2025-02-26 06:53 | CTR_ITS ---
PROCEDURE INFORMATION: Exam: CT Head Without Contrast Exam date and time: 02/26/2025 6:56 AM Age: 59 years old Clinical indication: Other: Change of cognitive function; Additional info: Unresponsive TECHNIQUE: Imaging protocol: Computed tomography of the head without contrast. Radiation optimization: All CT scans at this facility use at least one of these dose optimization techniques: automated exposure control; mA and/or kV adjustment per patient size (includes targeted exams where dose is matched to clinical indication); or iterative reconstruction. COMPARISON: CT head wo con* [id number] 07/23/2024 7:51 AM RADIATION DOSE METRICS: Total DLP (mGy-cm): 919.5 FINDINGS: Brain: There is no evidence of acute parenchymal hemorrhage, extra-axial collection, or acute infarction. There is no mass effect, midline shift, or downward herniation. Cerebral ventricles: No ventriculomegaly. Paranasal sinuses: Visualized sinuses are unremarkable. No fluid levels. Mastoid air cells: Visualized mastoid air cells are well aerated. Bones: Unremarkable. No acute fracture. Soft tissues: There is right frontal scalp hematoma. CT/CT head wo con* [id number] IMPRESSION: No acute intracranial abnormality.
--- NOTE | 2025-02-26 07:09 | PC.NURSE ---
CHANGE IN CONDITION THIS NURSE WAS CALLED INTO PATIENTS ROOM TO ASSIST UNIX MANAGER IN CHANGING PATIENT DUE TO INCONTINENCE. PATIENT ASSISTED TO WHEEL CHAIR AND BED LINENS WERE CHANGED. THIS NURSE STARTED TO CHANGE PATIENTS CLOTHES AND NOTED A LARGE BUMP TO THE RIGHT SIDE OF PATIENTS FOREHEAD. PATIENT WAS NOTED NOT TO BE RESPONDING TO VERBAL COMMANDS. PATIENT RESPONDED CORRECTLY TO THE QUESTION SASCHA, WHAT IS YOUR NAME? PATIENT NOTED TO BE DROOLING AND FAVORING HER RIGHT SIDE. PATIENT ABLE TO STAND WITH ASSIST AND PIVOT TO WHEEL CHAIR. RAPID RESPONSE WAS CALLED AFTER KNOT TO FOREHEAD WAS NOTED. RESPONDING DOCTOR ORDERED A HEAD CT, CBC, CMP, EKG AND TROPONIN ALL STAT. PATIENT TAKEN TO CT . VITAL SIGNS FOLLOWS: PULSE 110, BP 107/62, SPO2 100% ON ROOM AIR. ACCU CHECK OF 115 OBTAINED. CARE TAKEN OVER BY DAY SHIFT STAFF. DR CORBETT NOTIFIED AND IS ON UNIT AT THIS TIME TO SEE PATIENT.
[2025-02-26 07:14] LABS: Hematocrit 30.3 % (36-47); Hemoglobin 10.20 g/dL (11.27-16.99); Mean Corpuscular HGB Conc 33.7 g/dL (30-55); Mean Corpuscular Hemoglobin 30.7 pg (27-33); Mean Corpuscular Volume 91.3 fl (85-98); Platelet Count 92 10^3/cmm (157-399); Red Blood Count 3.32 10^6/uL (3.85-5.65); White Blood Count 4.91 10^3/uL (3.29-11.43)
[2025-02-26 07:30] LABS: Alanine Aminotransferase 19 U/L (0-33); Albumin Level 3.3 g/dL (3.5-5.2); Alkaline Phosphatase 142 U/L (35-105); Anion Gap 16.5 (5-19); Aspartate Amino Transferase 49 U/L (0-32); Blood Urea Nitrogen 23 mg/dL (6-20); Calcium 9.7 mg/dL (8.5-10.5); Carbon Dioxide 18 mmol/L (22-29); Chloride 112 mmol/L (98-107); Creatinine Clr Calc Pharmacy 107.4107; Globulin 2.6 g/dL (1.3-4.6); Glucose 121 mg/dL (65-115); Osmolality Calculated 299 mOsm/kg (285-295); Potassium 4.5 mmol/L (3.5-5.1); Sodium 142 mmol/L (136-145); Total Protein 5.9 g/dL (6.6-8.7)
[2025-02-26 07:31] LABS: Troponin T (5th) Once 11 ng/L (0-10)
[2025-02-26 07:40] LABS: Absolute Segmented Neutrophil 3.9 10/cmm (1.6-7.1); Band Neutrophils Absolute 0.0 10^3/cmm (0.0-1.2); Total Cells Counted 100 (0-100)
[2025-02-26 07:46] LABS: Atypical Lymphs 0.0 % (0-5)
--- NOTE | 2025-02-26 07:52 | PC.NURSE ---
called nurses report to Rn Luc in icu. pt being transfered to icu bed 7
--- NOTE | 2025-02-26 08:40 | XR_ITS ---
WS: [id number] XR chest 1V portable [id number] REASON FOR EXAM: AMS FINDINGS: The chest is unchanged compared to the previous examination of 10/04/2024. The heart and mediastinum are within normal limits. Calcified granulomas disease bilaterally. No acute pulmonary parenchymal or pleural abnormality. No significant abnormality of the bony thorax. XR/XR chest 1V portable [id number] IMPRESSION: Stable chest without acute abnormality.
[2025-02-26 09:11] LABS: ABG PCO2 27.8 mmHg (35-45); ABG PH Result 7.48 (7.35-7.45); Arterial Blood Gas Hematocrit 30.6 % (37-47); Blood Gas Allen Test Pos; Blood Gas Operator Identificat BROMA; Blood Gas Sample Site Radial, right; Blood Gas Sample Type Arterial; HCO3 ABG 20.5 mmol/L (22-26); PO2 ABG 110.0 mmHg (80.0-100.0); PO2 FiO2 Ratio Arterial Blood 523
[2025-02-26 09:25] LABS: Ammonia 90 umol/L (11-51)
[2025-02-26] MEDS: dexmedeTOMIDine 0.9 % NaCL 400 MCG/100 ML PREMIX IV ×2 (09:33→22:13)
--- NOTE | 2025-02-26 11:01 | PC.NURSE ---
recieved from npu , on gurney rolling from side to side and mumbling unable to have pt calm down, placed in gown and on monitor noted stach 150 very agitated several attempt made for iv placement 24 right thumb area doctor called for orders unable to take po medications at this time . ns started per order and order for precedex started one on one sitter at bedside
--- NOTE | 2025-02-26 14:12 | XR_ITS ---
WS: [id number] XR chest 1V portable [id number] REASON FOR EXAM: Post PICC insertion FINDINGS: Right arm PICC line is been placed. The tip is in the mid to distal superior vena cava. The chief radiology was instructed at 3:59 p.m. 02/26/2025 to inform the PICC line nurse to advance the additional centimeter of remaining catheter which would place it in the distal SVC in a position ready for use. XR/XR chest 1V portable [id number] IMPRESSION: Right arm PICC line placement as above. Ready for use.
[2025-02-26] MEDS: levETIRAcetam 1,000 MG/100 ML PREMIX 400 MG IV (14:49)
--- NOTE | 2025-02-26 15:15 | PICC.NOTE ---
Double lumen PICC placed to right brachial vein. Referred to vascular access nurse for PICC placement due to recent seizure activity and poor access. Risks and benefits discussed and informed consent obtained from pt friend, Shan Calles, via phone. Right arm assessed with right brachial vein measuring 3.2 mm, straight, and apparent best choice for placement. Using sterile technique and MST, right brachial vein accessed x 1 stick. Mid-arm circumference measured 10 cm from right AC 35 cm. Trimmed cath 40 cm with 0 cm external length noted. CXR shows tip in distal SVC, in good position for use per radiologist. Line secured with stat-lock. Insertion site covered with Biopatch and TSM. Report given to bedside nurse, VIVIENNE, RN.
--- NOTE | 2025-02-26 15:56 | P.PN_ITS ---
Subjective 2 Subjective: Patient was seen earlier this morning shortly after my arrival to hospital. A rapid response code was activated about the patient after patient reported to have been found with sudden altered mentation, having been she was found unresponsive about an hour earlier. Otherwise, earlier in the morning, she was found acting normally. Rapid response was called, and a CT scan was done. Otherwise, since then, patient was still mentally altered, and not communicating. She was also noted to be drooling from the mouth. Vitals/I&O/Wt Last Vital Signs Temp 97.3 F L 02/26/25 04:00 Pulse 79 02/26/25 12:30 Resp 15 02/26/25 12:30 BP 131/97 02/26/25 12:30 Pulse Ox 96 02/26/25 12:30 O2 Del Method Room Air 02/26/25 04:00 02/26/25 02/26/25 02/26/25 06:59 14:59 22:59 Intake Total 2.577 / 2.577 100 / 102.577 Balance 2.577 / 2.577 100 / 102.577 Physical Exam 2 Narrative: General: Unresponsive patient. Appears a lethargic. Neuro: Bilateral R>L rigidity + tonicity noted in the extremities. Otherwise, no obvious significant unilateral flaccidity noted. Further exam deferred. Chest/Resp: Mildly tachypneic; no obvious respiratory distress. CVS: Regular heart rate and rhythm. GI: Non-distended; No obvious organomegaly. Extremities: No obvious pitting pedal edema. Skin: No obvious new rashes or new skin lesions. Data 02/26/25 07:03 02/26/25 07:03 Other Labs: Labs from last 24 hours 02/26/25 02/26/25 02/26/25 08:58 08:50 07:03 WBC 4.91 RBC 3.32 L Hgb 10.20 L Hct 30.3 L MCV 91.3 D MCH 30.7 MCHC 33.7 D RDW 15.4 H Plt Count 92 L Sodium 142 Potassium 4.5 Chloride 112 H Carbon Dioxide 18 L Anion Gap 16.5 BUN 23 H Creatinine 0.6 GFR Calculation 103.0 Glucose 121 H Calculated Osmolality 299 H Calcium 9.7 Total Bilirubin 2.0 H AST 49 H ALT 19 Alkaline Phosphatase 142 H Ammonia 90 H Troponin T 5th Gen ng/L 11 H Total Protein 5.9 L Albumin 3.3 L Globulin 2.6 Micro: N/A CT Head: Radiologist's impression: Brain: There is no evidence of acute parenchymal hemorrhage, extra-axial collection, or acute infarction. There is no mass effect, midline shift, or downward herniation. Cerebral ventricles: No ventriculomegaly. Mastoid air cells: Visualized mastoid air cells are well aerated. Bones: Unremarkable. No acute fracture. Soft tissues: There is right frontal scalp hematoma. IMPRESSION: No acute intracranial abnormality. CXR: Radiologist's impression: IMPRESSION: Stable chest without acute abnormality. ABG Interpretation 1: 02/26/25 08:50 ABG pH 7.48 H ABG pCO2 27.8 L ABG pO2 110.0 H ABG HCO3 20.5 L ABG Base Excess -2.3 L My Interpretation: Mild respiratory alkalosis A&P Assessment and plan 1. Acute alteration in mental status: Cause not very clear. I strongly suspect a secondary seizure episode due to alcohol withdrawal. 2. Postictal state: No witnessed overt seizure, but I witnessed ?tonic episodes that looked more like tonic seizures while I examined the patient. 3. Bloody diarrhea: No more report of te persistence of this, We will keep a close eye. 4. Hx of irritable bowel syndrome: 5. Secondary thrombocytopenia: 6. Ascites due to alcoholic cirrhosis: Plan: Patient transferred to the ICU. She became a bit combative shortly after that; therefore Precedex drip was started. IV Keppra 100 mg every 12 hours also started. Will treat as other symptoms empirically. Given history of thrombocytopenia, I am also concerned about possible intra- cranial bleeding. After that, patient was still having some tonic episodes, as later reported to me by the RN; Therefore, I contacted the neurologist, Dr. Gurrola, who plans to review patient later and advise accordingly. M/w, treat other symptoms empirically. Seizure precautions. Bleeding precautions as well. Monitor closely. Further plans to be adjusted as needed as clinical picture evolves. Later in the afternoon, I spoke with the psychiatrist, Dr. Looney, who reports that patient is actually discharged from their psychiatry standpoint. So, we will treat patient, stabilize and possibly discharge her home after she is medically stable from our medical standpoint. Will repeat basic labs in the morning, including ammonia level. PDMP PDMP Reviewed: Not Reviewed Attestations 2 Medical Necessity Statement*: Patient admitted for apparent severe clinical condition, as outlined in the Assessment & Plan section above. Patient will need up to 2 midnight stay, estimated, at least, to adequately and appropriately treat and optimally control above-named clinical conditions,. Critical Care Time: The high probability of a clinically significant, sudden or life threatening deterioration of the patient's [neurologic, hematologic, and respiratory] s ystem(s) required my full and direct attention, intervention and personal management. The critical care time is as shown. This time is in addition to time spent performing any reported procedures but includes the following: [x] Data and vital sign review and interpretation [x] Patient assessment, examination and intervention [x] Documentation [x] Medication orders and management Coding Level of Care Code 63595 Diagnoses Acute alteration in mental status R41.82 Postictal state R56.9 Bloody diarrhea R19.7 Hx of irritable bowel syndrome Z87.19 Secondary thrombocytopenia D69.59 Ascites due to alcoholic cirrhosis K70.31
--- NOTE | 2025-02-26 16:28 | PC.NURSE ---
incontinent of urine bath and linen change done , continue to have altered mental pulling at lines ect ,keppra given iv after right picc insertion weaning precedex gtt at this time
--- NOTE | 2025-02-26 16:59 | PC.NURSE ---
puffing resp noted precedex gtt off , on standby noted extremities stiff postering inward pupil remain reactive head of bed elevated sitter at bedside Dr beaver will consult otf
--- NOTE | 2025-02-26 17:22 | CTR_ITS ---
PROCEDURE INFORMATION: Exam: CT Head Without Contrast Exam date and time: 02/26/2025 5:34 PM Age: 59 years old Clinical indication: Altered mental status/memory loss; Additional info: Altered mentation, w some persistent/recurring posturing TECHNIQUE: Imaging protocol: Computed tomography of the head without contrast. Radiation optimization: All CT scans at this facility use at least one of these dose optimization techniques: automated exposure control; mA and/or kV adjustment per patient size (includes targeted exams where dose is matched to clinical indication); or iterative reconstruction. COMPARISON: CT head wo con* [id number] 02/26/2025 6:56 AM RADIATION DOSE METRICS: Total DLP (mGy-cm): 1107.78 FINDINGS: Brain: No acute hemorrhage, edema, or mass effect. Chronic lacunar infarcts/prominent perivascular space in the left inferior basal ganglia. Cerebral ventricles: Generalized age-related cerebral volume loss. No hydrocephalus. Paranasal sinuses: Visualized sinuses are unremarkable. No fluid levels. Mastoid air cells: Visualized mastoid air cells are well aerated. Orbital cavities: Bilateral lens replacement. Bones: Unremarkable. No acute fracture. Soft tissues: Right frontal and right parietal scalp hematomas. CT/CT head wo con* [id number] IMPRESSION: 1. No acute hemorrhage, edema, or mass effect. 2. Right frontal and right parietal scalp hematomas. No acute calvarial fracture.
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
[2025-02-26 20:22] LABS: Pathology Referral Yes
--- NOTE | 2025-02-26 20:22 | P.NPUPN_ITS ---
Subjective NPU 2 Subjective: 59-year-old female with alcohol dependen ce, depression, and borderline personality disorder admitted with suicidal ideation. The patient had denied suicidal ideation. She was scheduled initially to be discharged today from the neuropsychiatric unit prior to her having rapid decompensation leading to her stay now with the ICU. 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 Mental Status Exam 2 MSE Comments: Patient is a casually dressed white female who was sedated and not responding to her name and lying in ICU bed. There was no evidence of any abnormal involuntary motor movements tics or tremors appreciated. Her hygiene was improving. Her speech was slow but steady with normal volume and prosody. Her mood was not endorsed. Her affect appeared flat. She endorsed no homicidal or suicidal ideation. She did not appear to be responding to internal stimuli. There was no evidence of delusional thinking. Her recent and remote memory appeared limited. Her insight and judgment were impaired. Her impulse control appeared poor. Vitals/I&O/Wt Last Vital Signs Temp 97.3 F L 02/26/25 04:00 Pulse 74 02/26/25 16:00 Resp 15 02/26/25 16:00 BP 102/61 02/26/25 16:00 Pulse Ox 97 02/26/25 16:00 O2 Del Method Room Air 02/26/25 04:00 02/26/25 02/26/25 02/26/25 06:59 14:59 22:59 Intake Total 22.317 / 22.317 126.32 / 148.637 Balance 22.317 / 22.317 126.32 / 148.637 Data NPU 02/26/25 07:03 02/26/25 07:03 A&P Assessment and plan 1. Depression: 2. Suicidal ideation: 3. Alcohol use disorder, severe, dependence: 4. Paronychia due to ingrown nail: 5. Borderline personality disorder: Plan: This is a 59-year-old white female with multiple inpatient hospitalizations with a history of alcohol dependence and depression reporting inititally suicidal ideation in the context of her use of alcohol with poor coping skills. BAL was 250 on arrival with history of significant alcohol withdrawal symptoms as well. Patient now in ICU appearing very confused. Interestingly, patient was absolutely alert and oriented to person, place, month, year, yesterday afternoon and not at all presenting with confusion or any notable decline in cognition. 1.? ?Patient refusing outpatient psychiatric services with [facility] or any inpatient substance abuse treatment despite signficant ETOH use. ?2. ? Please reconsult if need be, otherwise patient has follow up already scheduled with mental health services. PDMP PDMP Reviewed: Not Reviewed Involuntary Hold Information 2 Hold Status: Legal Status: 96 Hour Hold Date/Time Hold Expires: 02/27/25@ 00:01 96 Hour Hold: 96 Hour Involuntary Admission: Yes Other Hold: Hold End Date: 06/02/24 Attestations NPU 2 Medical Necessity Statement*: discharged from psychiatry services. Coding Level of Care Code Acute Code for [facility] Fwd Diagnoses Depression F32.A Suicidal ideation R45.851 Alcohol use disorder, severe, dependence F10.20 Paronychia due to ingrown nail Borderline personality disorder F60.3
[2025-02-26 20:26] LABS: CSF Mononuclear # 0.000 10^3/uL (50-90); Polynuclear Cells ,CSF # 0.000 10^3/uL (0-10); Red Blood Cell CSF 0 10^3/uL (0-0); White Blood Cell CSF 0 /uL (0-5)
--- NOTE | 2025-02-26 22:45 | PC.NURSE ---
Addendum entered by Raquel Bardales RN 02/27/25 02:04: Additionally, as patient not following commands to swallow, PO medications nonadministered, Dr. Kulkarni aware. Original Note: NG tube Patient confused, unwilling to follow commands. When aroused, patient uses profanity and attempts to pull at medical wires. Patient's ammonia level on previous labs noted to be elevated. No morning labs ordered. Dr. Kulkarni contacted; ammonia level, vitamin B, and no morning lab orders discussed. Orders received to place an NG tube and administer 30 g lactulose via NG tube Q6H scheduled.
--- NOTE | 2025-02-26 23:00 | PC.NURSE ---
Medical Restraints Patient attempting to pull NG tube out multiple times. Dr. Kulkarni notified and order received to place patient in non-violent medical restraints for safety.
--- NOTE | 2025-02-26 23:27 | XRR_ITS ---
PROCEDURE INFORMATION: Exam: XR Chest Exam date and time: 02/26/2025 11:29 PM Age: 59 years old Clinical indication: Device placement; Ng tube; Additional info: Ng tube placement TECHNIQUE: Imaging protocol: Radiologic exam of the chest. Views: 1 view. COMPARISON: CR XR chest 1V portable [id number] 02/26/2025 3:46 PM FINDINGS: Tubes, catheters and devices: Feeding tube terminates in the stomach with the side port at the distal esophagus. Advancement recommended. Right PICC line terminates in the right atrium. Lungs: Unremarkable. No consolidation. Pleural spaces: Unremarkable. No pleural effusion. No pneumothorax. Heart/Mediastinum: Unremarkable. No cardiomegaly. Bones/joints: ACDF. XR/XR chest 1V portable [id number] IMPRESSION: 1. Feeding tube terminates in the stomach with the side port at the distal esophagus. Advancement recommended. 2. Right PICC line terminates in the right atrium.
[2025-02-27] VITALS (45 sets, daily range): BP systolic 78–148; BP diastolic 47–84; PULSE 53–123; RESP 10–22; TEMP 36.1–37.7; O2SAT 71–100
--- NOTE | 2025-02-27 00:17 | XRR_ITS ---
PROCEDURE INFORMATION: Exam: XR Chest Exam date and time: 02/27/2025 1:13 AM Age: 59 years old Clinical indication: Device placement; Ng tube; Additional info: Ng tube advancement TECHNIQUE: Imaging protocol: Radiologic exam of the chest. Views: 1 view. COMPARISON: CR (CHEST, ) 02/26/2025 11:29 PM FINDINGS: Tubes, catheters and devices: Feeding tube terminates below the diaphragm. Right PICC line terminates in the SVC. Lungs: Unremarkable. No consolidation. Pleural spaces: Unremarkable. No pleural effusion. No pneumothorax. Heart/Mediastinum: Unremarkable. No cardiomegaly. Bones/joints: Unremarkable. XR/XR chest 1V portable [id number] IMPRESSION: No acute findings.
--- NOTE | 2025-02-27 02:05 | PC.NURSE ---
NG Placement Chest xray for NG placement recommended advancement. NG tube advanced and new chest xray obtained. Reading of the second xray stated NG tube below diaphragm. Radiology contacted for further verification of placement.
[2025-02-27] MEDS: lactulose oral liq 20 gm/30 mL UDC 30 GM NG-TUBE ×3 (02:16→13:18)
[2025-02-27] MEDS: levETIRAcetam 1,000 MG/100 ML PREMIX 400 MG IV ×2 (02:17→13:45)
[2025-02-27] MEDS: multivitamin therapeutic Tablet 1 TAB PO (07:08)
--- NOTE | 2025-02-27 10:18 | P.PN_ITS ---
Subjective 2 Subjective: Patient is seen again this morning in the ICU. She is awake today, alert and more interactive today, more responsive, and able to answer questions. She is not able to remember very little of what happened yesterday.. However, per nursing staff note that her mental status has been improving steadily in the last 12 hours. She was seen late last night by the neurologist, who did a lumbar puncture. Otherwise, the repeat CT scan of the history reported to be normal. Overnight, patient reported to have had an episode of increased agitation, for which NG tube was placed, and she was started on lactulose. Vitals/I&O/Wt Last Vital Signs Temp 97 F L 02/27/25 04:21 Pulse 56 L 02/27/25 06:15 Resp 12 02/27/25 06:15 BP 105/60 02/27/25 06:15 Pulse Ox 97 02/27/25 06:15 O2 Del Method Room Air 02/26/25 21:30 02/26/25 02/27/25 02/27/25 22:59 06:59 14:59 Intake Total 1177.683 / 1200.000 120.723 / 1320.723 Balance 1177.683 / 1200.000 120.723 / 1320.723 Weight last 48 hrs Weight 67.5 kg Physical Exam 2 Narrative: General: Awake but mildly drowsy. [address] NG tube initially placed. Very cooperative. Chest/Resp: Normal respiratory chest movts; no obvious respiratory distress. CVS: Regular heart rate and rhythm. GI: Non-distended; No obvious organomegaly. Extremities: No obvious pitting pedal edema. Skin: No obvious new rashes or new skin lesions. Data 02/26/25 07:03 02/26/25 07:03 Other Labs: No ammonia level reported today. Micro: Microbiology 02/26/25 19:15 Gram Stain - Final Cerebrospinal Fluid CT Head: Radiologist's impression: 1. No acute hemorrhage, edema, or mass effect. 2. Right frontal and right parietal scalp hematomas. No acute calvarial fracture. A&P Assessment and plan 1. Alcohol withdrawal seizure: 2. Metabolic encephalopathy: 3. Postictal state: 4. Ascites due to alcoholic cirrhosis: 5. Thrombocytopenia: Plan: Patient's symptomatology is strongly suspected to be due to alcohol withdrawal seizure, leading to some postictal state. This is otherwise resolving,/stable. Otherwise, acute intracranial etiology has been ruled out with [address] scans. There were no ammonia level was repeated today, but her encephalopathy is remarkably recovering. We will continue all other ongoing treatment plans. With remarkable improvement, we discontinue\d the 4 point restraint, and removed the NG tube. Patient is fed, having tolerated advanced diet. She will be moved to the step-down unit, where we will continue to monitor closely. Resume or contiunue every other ongoing home medications for other chronic liver disease. Anticipate discharge tomorrow. PDMP PDMP Reviewed: Not Reviewed Attestations 2 Medical Necessity Statement*: Patient admitted for apparent severe clinical condition, as outlined in the Assessment & Plan section above. Patient will need up to 2 midnight stay, estimated, at least, to adequately and appropriately treat and optimally control above-named clinical conditions,. Coding Level of Care Code Acute Code for [facility]wd Diagnoses Alcohol withdrawal seizure F10.939; R56.9 Metabolic encephalopathy G93.41 Postictal state R56.9 Ascites due to alcoholic cirrhosis K70.31 Thrombocytopenia D69.6
[2025-02-27] MEDS: HYDROcodone-acetaminophen 5-325 mg Tablet 1 TAB PO ×2 (14:51→18:48)
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
--- NOTE | 2025-02-27 18:34 | PC.NURSE ---
Report was called to [facility] in [facility]. Patient was transferred by WC to room 104. She was given her cell phone. There was no charging cord. Patient belongings were taken to the [facility] nurses station and given to [facility]. Patient denied questions.
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
[2025-02-27] MEDS: MELATONIN 3 MG TABLET PO (20:55)
[2025-02-27] MEDS: lactulose oral liq 20 gm/30 mL UDC 30 GM PO (20:55)
[2025-02-28] MEDS: HYDROcodone-acetaminophen 5-325 mg Tablet 1 TAB PO ×2 (00:48→06:22)
[2025-02-28] MEDS: lactulose oral liq 20 gm/30 mL UDC 30 GM PO ×2 (02:36→08:24)
[2025-02-28] MEDS: levETIRAcetam 1,000 MG/100 ML PREMIX 400 MG IV (02:37)
[2025-02-28 03:32] VITALS: BP 107/52; PULSE 76; RESP 18; TEMP 36.4; O2SAT 97
[2025-02-28 04:21] LABS: Hematocrit 21.7 % (36-47); Hemoglobin 7.60 g/dL (11.27-16.99); Mean Corpuscular HGB Conc 35.0 g/dL (30-55); Mean Corpuscular Hemoglobin 31.4 pg (27-33); Mean Corpuscular Volume 89.7 fl (85-98); Nucleated Red Blood Cells % 0 %; Platelet Count 72 10^3/cmm (157-399); Red Blood Count 2.42 10^6/uL (3.85-5.65); White Blood Count 3.92 10^3/uL (3.29-11.43)
[2025-02-28 04:47] LABS: Alanine Aminotransferase 21 U/L (0-33); Albumin Level 2.9 g/dL (3.5-5.2); Alkaline Phosphatase 120 U/L (35-105); Anion Gap 9.9 (5-19); Aspartate Amino Transferase 48 U/L (0-32); Blood Urea Nitrogen 15 mg/dL (6-20); Calcium 8.6 mg/dL (8.5-10.5); Carbon Dioxide 23 mmol/L (22-29); Chloride 109 mmol/L (98-107); Globulin 1.8 g/dL (1.3-4.6); Glucose 146 mg/dL (65-115); Osmolality Calculated 289 mOsm/kg (285-295); Potassium 3.9 mmol/L (3.5-5.1); Sodium 138 mmol/L (136-145); Total Protein 4.7 g/dL (6.6-8.7)
[2025-02-28 04:48] LABS: Ammonia 81 umol/L (11-51); Magnesium 2.1 mg/dL (1.7-2.3)
[2025-02-28] MEDS: multivitamin therapeutic Tablet 1 TAB PO (05:52)
[2025-02-28 06:00] VITALS: PULSE 64
[2025-02-28 07:00] VITALS: BP 102/53; PULSE 65; RESP 14; TEMP 36.2; O2SAT 100
--- NOTE | 2025-02-28 09:26 | P.DS_ITS ---
Discharge Providers Date of Admission: 02/22/25 23:45 Date of Discharge: February 28, 2025 Attending Provider at Admission: Marcell Archibald MD Attending Provider at Discharge: Ranjith Horan MD Primary Care Provider: Aida Vincent Diagnoses at Discharge Discharge Diagnosis 1. Metabolic encephalopathy: Details from hospital stay: Resolved. 2. Alcohol withdrawal seizure: Details from hospital stay: Resolved. 3. Postictal state: Details from hospital stay: Resolved. 4. Ascites due to alcoholic cirrhosis: Details from hospital stay: Stable. 5. Thrombocytopenia: Details from hospital stay: Stable. Reason for Visit Reason for Visit: Transfer from psych floor Brief History: Patient was a transfer from the psych floor to the ICU where she was found to have been mentally altered. Her clinical features at the moment looked postictal, though they suspect the seizure was not witnessed. Consequently, she was admitted to the ICU, where she was treated empirically. Given combativeness that followed her admission in the ICU, she was put on Precedex, while she was physically restrained. She was displaying some posturing, therefore requiring consultation with neurology. Otherwise, CT imaging x 2 of the head showed no obvious acute findings. Given suspicion for seizures, IV Keppra was started. Hospital Course Hospital Course At the end of 24 hours, patient gradually improved. Her mental status returned gradually back to her baseline. Consequently, she was transferred out of the ICU yesterday, and monitored closely at the step-down unit. As of this morning, patient had returned back to her baseline. She acknowledges a history of seizures when she was a child, for which she was put on some anti- seizure medications between the ages of about 15 and 20. She denies any more seizure episodes since she became adult. Physical Exam Narrative: General: Awake and alert patient. Cooperative. Behavior assessment normal. Neuro: No acute neurological deficits. Cranial nerves II to XII grossly intact. Resp: No obvious respiratory distress or difficulty breathing. Skin: No obvious rashes or new skin lesions. All other physical findings essentially within normal limits. Discharge Data Studies Completed and Pending Completed Studies During Hospitalization Category Date Time Status CT head wo con* [id number] Stat Cat Scan 02/26/25 06:[address] head wo con* [id number] Stat Cat Scan 02/26/25 17:22 Completed CXRP [XR chest 1V portable [id number]] Routine Exams 02/26/25 14:12 Completed XR chest 1V portable [id number] Routine Exams 02/26/25 23:27 Completed XR chest 1V portable [id number] Routine Exams 02/27/25 00:17 Completed XR chest 1V portable [id number] Urgent Exams 02/26/25 08:40 Completed Pending at discharge Category Date Time Status Beta-Amyloid 42/40 Ratio, CSF Routine Lab 02/26/25 19:15 Received CSF Culture & Gram Stain Routine Lab 02/26/25 19:15 Results Urinalysis Routine Lab 02/26/25 08:37 Uncollected VDRL on CSF Routine Lab 02/26/25 19:15 Received Radiology Impressions Head CT 02/26/25 17:22 IMPRESSION: No acute hemorrhage, edema, or mass effect. Right frontal and right parietal scalp hematomas. No acute calvarial fracture. Chest X-Ray 02/27/25 00:17 IMPRESSION: No acute findings. Vitals Last Vital Signs Temp 97.2 F L 02/28/25 07:00 Pulse 65 02/28/25 07:00 Resp 14 02/28/25 07:00 BP 102/53 02/28/25 07:00 Pulse Ox 100 02/28/25 07:00 O2 Del Method Room Air 02/28/25 07:00 Discharge Plan Discharge Patient Disposition: Home Condition: Stable Prescriptions: New levetiracetam 750 mg tablet 750 mg PO BID Qty: 60 0RF diazepam [Valium] 5 mg tablet 5 - 10 mg PO Q8H MDD 30 mg PRN (Reason: alcohol withdrawal) Qty: 60 0RF Continued spironolactone 100 mg tablet 100 mg PO DAILY Women's 50 Plus Multivitamin 400 mcg-500 mg calcium-20 mcg Tablet 1 tab PO DAILY melatonin 3 mg Tablet 3 mg PO BEDTIME Qty: 30 0RF magnesium oxide 400 mg (241.3 mg magnesium) Tablet 400 mg PO BID Qty: 60 0RF ziprasidone HCl 20 mg capsule 20 mg PO BID PRN (Reason: Anxiety) nitroglycerin 0.4 mg tablet, sublingual See Rx Instructions .ROUTE .COMPLEX Rx Instructions: PLACE ONE TABLET UNDER TONGUE NEEDED FOR CHEST PAIN. epinephrine 0.3 mg/0.3 mL auto-injector See Rx Instructions .ROUTE .COMPLEX Rx Instructions: INJECT 1 PEN IN THE MUSCLE ONE TIME DIRECTED. tizanidine 4 mg tablet 4 mg PO BEDTIME Discontinued potassium chloride [Klor-Con M20] 20 mEq Tablet,Er Particles/Crystals 20 meq PO BID Qty: 60 0RF Rx Instructions: Take potassium together with furosemide to replace potassium lost with the furosemide water pill furosemide 80 mg tablet See Rx Instructions .ROUTE .COMPLEX Rx Instructions: TAKE 1 TABLET BY MOUTH IN THE MORNING AND 1/2 A TABLET IN THE AFTERNOON Nitric Acid Concentrator Operator OK for DC: Neurology and Psychiatry Discharge Order = DC NOW: Discharge Order (Routine); Ordered 02/28/25 Ordered By: Ranjith Horan Referrals: Areli Gurrola MD [Physician, Neurology] Referral Note: We have sent a message to this office to call you with an appointment. If you do not hear from them by Sunday, please call their office. Aida Vincent PA [Primary Care Provider, Physicians Computer Aided Design Drafter] Referral Note: Please call the office on Sunday to arrange a hospital follow up within the next 7-10 days Discharge Diet: Usual diet Discharge Activity: Resume usual activity and Increase activity as tolerated Patient Instructions: Diltiazem (By mouth), Levetiracetam (By mouth), Opioid Safety, Patient Portal & Deana Instructions Activity Restrictions/Additional Instructions: Follow-up with your primary care provider within the next 1 to 2 weeks/as needed Follow-up with neurology (Dr. Gurrola) within the next 2 to 4 weeks/as directed. Discharge Attestations Time Spent in Discharge Care*: less than 30 min Status at Discharge: Cognitive status at discharge: cognitively intact , Behavioral status at discharge: cooperative , Quality Metrics Clinical Quality Measures [ No reported AMI, CVA or VTE this stay] Coding Level of Care Code Acute Code for Chg Fwd Diagnoses Metabolic encephalopathy G93.41 Alcohol withdrawal seizure F10.939; R56.9 Postictal state R56.9 Ascites due to alcoholic cirrhosis K70.31 Thrombocytopenia D69.6
[2025-02-28 11:10] VITALS: BP 104/62; PULSE 65; RESP 14; TEMP 36.5; O2SAT 95
[2025-03-04 00:44] LABS: VDRL on CSF NON-REACTIVE
== END 2025-02-28 10:31 | disposition home or self-care (01) | DRG 883 ==
LOC: ER 21:35 → ER IP 02-23 00:27 → NP 02-23 10:17 → ICU 02-26 08:07 → CSU 02-27 18:29
PROVIDERS: Psychiatry & Neurology Psychiatry; Specialist; Admitting Provider Psychiatry & Neurology Psychiatry; Emergency Provider Physician Assistant; PCP Physician Assistant; Visit Provider Family Medicine
DX: F60.3 Borderline personality disorder (principal); G93.41 Metabolic encephalopathy; R45.851 Suicidal ideations; F10.231 Alcohol dependence with withdrawal delirium; K92.1 Melena; F10.229 Alcohol dependence with intoxication, unspecified; F32.A Depression, unspecified; D69.6 Thrombocytopenia, unspecified; Y90.8 Blood alcohol level of 240 mg/100 ml or more; F17.290 Nicotine dependence, other tobacco product, uncomplicated; F12.10 Cannabis abuse, uncomplicated; J44.9 Chronic obstructive pulmonary disease, unspecified; F41.9 Anxiety disorder, unspecified; E87.5 Hyperkalemia; Z62.819 Personal history of unspecified abuse in childhood; K70.11 Alcoholic hepatitis with ascites; F43.10 Post-traumatic stress disorder, unspecified; R19.7 Diarrhea, unspecified; K76.82 Hepatic encephalopathy
CPT/HCPCS: 36415; 36416; 36573; 70450; 71045; 80053; 80306; 80307; 80503; 81001; 82140; 82542; 82803; 82945; 82962; 83735; 84157; 84443; 84484; 85007; 85025; 85027; 85610; 85730; 86592; 87070; 87075; 87205; 89050; 96372; 97116; 97150; 97161; 97165; 99285; J1953; J2060; J3490; J7030; J9999; Q0163

== ENCOUNTER 2025-03-04 09:54 | Oncology outpatient (recurring) (ONCR) | payer MEDICARE, MEDICAID, SELFPAY ==
[2024-09-18 15:42] VITALS: BP 147/78; BMI 37.0
[2025-03-04 10:42] LABS: Hematocrit 26.7 % (36-47); Hemoglobin 8.50 g/dL (11.27-16.99); Mean Corpuscular HGB Conc 31.8 g/dL (30-55); Mean Corpuscular Hemoglobin 30.5 pg (27-33); Mean Corpuscular Volume 95.7 fl (85-98); Nucleated Red Blood Cells % 0 %; Platelet Count 33 10^3/cmm (157-399); Red Blood Count 2.79 10^6/uL (3.85-5.65); White Blood Count 3.44 10^3/uL (3.29-11.43)
[2025-03-04 11:00] LABS: Alanine Aminotransferase 28 U/L (0-33); Albumin Level 2.8 g/dL (3.5-5.2); Alkaline Phosphatase 131 U/L (35-105); Anion Gap 16.2 (5-19); Aspartate Amino Transferase 51 U/L (0-32); Blood Urea Nitrogen 13 mg/dL (6-20); Calcium 8.5 mg/dL (8.5-10.5); Carbon Dioxide 16 mmol/L (22-29); Chloride 107 mmol/L (98-107); Creatinine Clr Calc Pharmacy 140.4494; Ferritin 89 ng/mL (15-150); Globulin 2.7 g/dL (1.3-4.6); Glucose 150 mg/dL (65-115); Iron 64 ug/dL (37-145); Osmolality Calculated 283 mOsm/kg (285-295); Potassium 4.2 mmol/L (3.5-5.1); Sodium 135 mmol/L (136-145); Total Iron Binding Capacity 325 mcg/dl; Total Protein 5.5 g/dL (6.6-8.7); Unsaturated Iron Binding 261 ug/dL (112-347)
== END 2025-03-08 23:59 | disposition home or self-care (01) ==
PROVIDERS: Nurse Practitioner; PCP Physician Assistant; Visit Provider Internal Medicine
DX: D61.818 Other pancytopenia (principal); D69.6 Thrombocytopenia, unspecified; R03.0 Elevated blood-pressure reading, without diagnosis of hypertension; F17.290 Nicotine dependence, other tobacco product, uncomplicated; K22.6 Gastro-esophageal laceration-hemorrhage syndrome; D70.9 Neutropenia, unspecified; D50.9 Iron deficiency anemia, unspecified
CPT/HCPCS: 36415; 80053; 82728; 83540; 83550; 85025; 86850; 86900; 99213

== ENCOUNTER 2025-03-08 01:19 | Emergency (ER) | payer MEDICARE, MEDICAID, SELFPAY ==
--- OUTSIDE RECORDS SUMMARY | 2024-02-02 03:00 | XMS_ITS ---
Author Organization [facility] Address [address] [place] [address] Care Team Providers Care Remote Sensing Technician Name Role Phone Joseph Lewis MD Primary Care Provider Zane Joiner Unavailable [phone] ELROY BOOTHE Unavailable Unavailable Migration, Provider Unavailable Unavailable REASON FOR VISIT EMR-Luke Encounters Encounter Location Date Provider Diagnosis Migrated_Facility 0 0 02/02/2024 Provider Migration Plan Of Treatment Medication Medication Name Sig Start Date Stop Date Notes Zubsolv 5.7-1.4 mg sublingual tablet, sublingual 1 Tablet Twice a Day 02/20/2019 03/22/2019 *Reorder from [facility] for eRx and Interaction Alerts* Progress Notes * Kay GAMBOA MDOB:1965 (59 yo F)Acc No.[id number]:02/02/2024 Patient: Elva Kay RODRIGUEZ :1965 A ge:58 Y S ex:Female Address:[address], [address] [place] [address] * Refills Stop Zubsolv 5.7-1.4 mg sublingual tablet, sublingual, 1 Tablet Twice a Day Subjective: * Chief Complaints: * E MR-Luke * * Date:
--- OUTSIDE RECORDS SUMMARY | 2024-02-03 03:00 | XMS_ITS ---
Author Organization [facility] Address [address] [place] [address] Care Team Providers Care Respiratory Physician Name Role Phone Joseph Lewis MD Primary Care Provider Unavaila Zane Grajeda Unavailable [phone] ELROY BOOTHE Unavailable Unavailable Migration, Provider Unavailable Unavailable Allergies Allergen (clinical drug ingredient) Drug/Non Drug Allergy documented on EMR Reaction Allergy Type Onset Date Status Information temporarily unavailable Aspirin (ASA) (uncoded) Unknown Allergy 05/28/2008 Inactive Information temporarily unavailable Acetaminophen , Drug Allergy Active Information temporarily unavailable Aspirin , Drug Allergy Active Information temporarily unavailable Ibuprofen Unknown Drug Allergy 05/28/2008 Active Information temporarily unavailable Sumatriptan , Drug Allergy Active REASON FOR VISIT EMR-Luke Social History Social [...] Treatment No Information Progress Notes * Kay CALLES MDOB:1965 (59 yo F)Acc No.[id number]:02/03/2024 Patient: Elva RODRIGUEZKay :1965 A ge:58 Y S ex:Female Address:[address], [address] [place] [address] Subjective: * Chief Complaints: * E MR-Luke [...]
[2024-09-18 15:42] VITALS: BP 147/78; BMI 37.0
--- OUTSIDE RECORDS SUMMARY | 2025-03-08 01:24 | XMS_ITS | Encounter Summary ---
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
--- OUTSIDE RECORDS SUMMARY | 2025-03-08 01:24 | XMS_ITS | Encounter Summary ---
Author Organization [facility] Address [address] [place] [address] Care Team Providers Care Operations General Agent Name Role Phone Areli Gurrola MD Primary Care Provider Encounter Details Date Type Department Care Team (Latest Contact Info) Description 03/27/2001 Outpatient Historical [facility] [address] [place] [address] Trell York MD [address] [place] [phone] CERVICALGIA (Primary Dx); NEUROTIC DEPRESSION; LUMBAGO Social History Tobacco Use Types Packs/Day Years Used Date Smoking Tobacco: Never Assessed Comments Unknown Sex and Gender Information Value Date Recorded Sex Assigned at Not on file Legal Sex Female 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
--- OUTSIDE RECORDS SUMMARY | 2025-03-08 01:24 | XMS_ITS | Encounter Summary ---
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 TORCH OPERATOR Gender Identity Not on file Sexual Orientation Not on file documented as of this encounter Plan of Treatment Not on file documented as of this encounter Visit Diagnoses Not on filedocumented in this encounter Additional Health Concerns Infection Onset Date Last Indicated Resolved Time R/O COVID-19 01/31/2020 01/31/2020 02/02/2020 10:3 2 AM CDT documented as of this encounter Care Teams Tray Casting Machine Operator Relationship Specialty Start Date End Date Areli Gurrola MD [address] [place] [address] PCP - General Specialist 08/12/19 documented as of this encounter
--- OUTSIDE RECORDS SUMMARY | 2025-03-08 01:24 | XMS_ITS | Encounter Summary ---
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 Gender Identity Not on file Sexual Orientation Not on file documented as of this encounter Plan of Treatment Not on file documented as of this encounter Visit Diagnoses Not on filedocumented in this encounter Additional Health Concerns Infection Onset Date Last Indicated Resolved Time R/O COVID-19 01/31/2020 01/31/2020 02/02/2020 10:3 2 AM CDT documented as of this encounter Care Teams Machine Grinder Relationship Specialty Start Date End Date Areli Gurrola MD [address] [facility] [place] [address] PCP - General Specialist 08/12/19 documented as of this encounter
--- OUTSIDE RECORDS SUMMARY | 2025-03-08 01:24 | XMS_ITS | Encounter Summary ---
Author Organization [facility] Address [address] [place] [address] Care Team Providers Care Stage Set Designer Name Role Phone Areli Gurrola MD Primary Care Provider Encounter Details Date Type Department Care Team (Latest Contact Info) Description 12/05/2000 [facility] [address] [place] [address] Trell York MD [address] [place] [phone] Lumbago (Primary Dx); Cervicalgia; Pain in joint, pelvic region and thigh Social History Tobacco Use Types Packs/Day Years Used Date Smoking Tobacco: Never Assessed Comments Unknown Sex and Gender Information Value Date Recorded Sex Assigned at Not on file Legal 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
--- OUTSIDE RECORDS SUMMARY | 2025-03-08 01:24 | XMS_ITS | Encounter Summary ---
Author Organization [facility] Address [address] [place] [address] Care Team Providers Care Oil Tank Car Cleaner Name Role Phone Areli Gurrola MD Primary Care Provider Encounter Details Date Type Department Care Team (Late st Contact Info) Description 05/23/1999 Outpatient Historical [facility] [address] [place] [address] Trell Hines MD [address] [place] [address] Carpal tunnel syndrome (Primary Dx) Social History Tobacco Use Types Packs/Day Years Used Date Smoking Tobacco: Never Assessed Comments Unknown Sex and Gender Information Value Date Recorded Sex Assigned at Not on file Legal Sex Female 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
--- OUTSIDE RECORDS SUMMARY | 2025-03-08 01:24 | XMS_ITS | Encounter Summary ---
Author Organization [facility] Address [address] [facility] [address] Attn: [place] [address] Care Team Providers Care Radio Aerial Installer Name Role Phone Areli Gurrola MD Primary Care Provider Encounter Details Date Type Department Care Team (Late st Contact Info) Description 06/11/2001 Inpatient Historical Renan Martinez MD [address] [place] [address] Social History Tobacco Use Types Packs/Day Years Used Date Smoking Tobacco: Never Assessed Comments Unknown Sex and Gender Information Value Date Recorded Sex Assigned at Not on file Legal Sex Female 3: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 STOCKROOM 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 Gender Identity Not on file Sexual Orientation Not on file documented as of this encounter Plan of Treatment Not on file documented as of this encounter Visit Diagnoses Not on filedocumented in this encounter Additional Health Concerns Infection Onset Date Last Indicated Resolved Time R/O COVID-19 01/31/2020 01/31/2020 02/02/2020 10:3 2 AM CDT documented as of this encounter Care Teams Radio Aerial Installer Relationship Specialty Start Date End Date Areli Gurrola MD [address] [facility] [place] [address] PCP - General Specialist 08/12/19 documented as of this encounter
--- OUTSIDE RECORDS SUMMARY | 2025-03-08 01:24 | XMS_ITS | Encounter Summary ---
Author Organization [facility] Address [address] [place] [address] Care Team Providers Care Drapery Estimator Name Role Phone Areli Gurrola MD Primary Care Provider Encounter Details Date Type Department Care Team (Latest Contact Info) Description 10/27/1999 Outpatient Historical [facility] [address] [place] [address] Trell York MD [address] [place] [phone] Lumbago (Primary Dx) Social History Tobacco Use Types Packs/Day Years Used Date Smoking Tobacco: Never Assessed Comments Unknown Sex and Gender Information Value Date Recorded Sex Assigned at Not on file Legal 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 Gender Identity Not on file Sexual Orientation Not on file documented as of this encounter Plan of Treatment Not on file documented as of this encounter Visit Diagnoses Diagnosis Lumbago- Primary documented in this encounter Additional Health Concerns Infection Onset Date Last Indicated Resolved Time R/O COVID-19 01/31/2020 01/31/2020 02/02/2020 10:3 2 AM CDT documented as of this encounter Care Teams Drapery Estimator Relationship Specialty Start Date End Date Areli Gurrola MD [address] [facility] [place] [address] PCP - General Specialist 08/12/19 documented as of this encounter
--- OUTSIDE RECORDS SUMMARY | 2025-03-08 01:24 | XMS_ITS | Encounter Summary ---
Author Organization [facility] Address [address] [place] [address] Care Team Providers Care Assistant Media Planner Name Role Phone Areli Gurrola MD Primary Care Provider Encounter Details Date Type Department Care Team (Latest Contact Info) Description 09/01/1999 Outpatient Historical [facility] Joseph Ramos MD [address] [place] [address] Pain in joint, hand (Primary Dx); Follow-up examination following surgery Social History Tobacco Use Types Packs/Day Years Used Date Smoking Tobacco: Never Assessed Comments Unknown Sex and Gender Information Value Date Recorded Sex Assigned at Not on file Legal Sex Female 3:40 AM CHEMICAL SALES REPRESENTATIVE Gender Identity Not on file [...] as of this encounter Care Teams Assistant Media Planner Relationship Specialty Start Date End Date Areli Gurrola MD [address] [place] [address] PCP - General Specialist 08/12/19 documented as of this encounter
--- OUTSIDE RECORDS SUMMARY | 2025-03-08 01:24 | XMS_ITS | Encounter Summary ---
Author Organization [facility] Address [address] [place] [address] Care Team Providers Care Property Claim Rep Name Role Phone Areli Gurrola MD Primary Care Provider Encounter Details Date Type Department Care Team (Latest Contact Info) Description 10/20/1999 Outpatient Historical [facility] Joseph Ramos MD [address] [place] [address] Carpal tunnel syndrome (Primary Dx) Social History Tobacco Use Types Packs/Day Years Used Date Smoking Tobacco: Never Assessed Comments Unknown Sex and Gender Information Value Date Recorded Sex Assigned at Not on file Legal Sex Female 3:40 AM FUEL MANAGER Gender Identity Not on file Sexual [...] as of this encounter Care Teams Property Claim Rep Relationship Specialty Start Date End Date Areli Gurrola MD [address] [facility] [place] [address] PCP - General Specialist 08/12/19 documented as of this encounter
--- OUTSIDE RECORDS SUMMARY | 2025-03-08 01:24 | XMS_ITS | Encounter Summary ---
Author Organization [facility] Address [address] [place] [address] Care Team Providers Care Grease Cup Filler Name Role Phone Areli Gurrola MD Primary Care Provider Encounter Details Date Type Department Care Team (Latest Contact Info) Description 11/28/1999 Outpatient Historical 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 Gender Identity Not on file Sexual Orientation Not on file documented as of this encounter Plan of Treatment Not on file documented as of this encounter Visit Diagnoses Diagnosis Lumbago- Primary documented in this encounter Additional Health Concerns Infection Onset Date Last Indicated Resolved Time R/O COVID-19 01/31/2020 01/31/2020 02/02/2020 10:3 2 AM CDT documented as of this encounter Care Teams Grease Cup Filler Relationship Specialty Start Date End Date Areli Gurrola MD [address] [facility] [place] [address] PCP - General Specialist 08/12/19 documented as of this encounter
--- OUTSIDE RECORDS SUMMARY | 2025-03-08 01:24 | XMS_ITS | Clinical Summary ---
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
--- OUTSIDE RECORDS SUMMARY | 2025-03-08 01:24 | XMS_ITS | Encounter Summary ---
Author Organization [facility] Address [address] [place] [address] Care Team Providers Care Stamping Die Maker Name Role Phone Areli Gurrola MD Primary Care Provider Encounter Details Date Type Department Care Team (Latest Contact Info) Description 09/08/1999 Outpatient Historical [facility] [address] [place] [address] Trell York MD [address] [place] [phone] Lumbago (Primary Dx); Obesity, unspecified Social History Tobacco Use Types Packs/Day Years Used Date Smoking Tobacco: Never Assessed Comments Unknown Sex and Gender Information Value Date Recorded Sex Assigned at Not on file Legal Sex Female 3:40 AM WHIRLEY OPERATOR Gender Identity Not on file Sexual [...] documented as of this encounter Care Teams Stamping Die Maker Relationship Specialty Start Date End Date Areli Gurrola MD [address] [facility] [place] [address] PCP - General Specialist 08/12/19 documented as of this encounter
--- OUTSIDE RECORDS SUMMARY | 2025-03-08 01:24 | XMS_ITS | Encounter Summary ---
Author Organization [facility] Address [address] [place] [address] Care Team Providers Care Jewel Supervisor Name Role Phone Areli Gurrola MD Primary Care Provider Encounter Details Date Type Department Care Team (Latest Contact Info) Description 07/20/1999 Outpatient Historical [facility] Joseph Ramos MD [address] [place] [address] Pain in joint, hand (Primary Dx) Social History Tobacco Use Types Packs/Day Years Used Date Smoking Tobacco: Never Assessed Comments Unknown Sex and Gender Information Value Date Recorded Sex Assigned at Not on file Legal Sex Female 3:40 AM API PRODUCT MANAGER Gender Identity Not on file Sexual [...] as of this encounter Care Teams Jewel Supervisor Relationship Specialty Start Date End Date Areli Gurrola MD [address] [facility] [place] [address] PCP - General Specialist 08/12/19 documented as of this encounter
--- OUTSIDE RECORDS SUMMARY | 2025-03-08 01:24 | XMS_ITS | Encounter Summary ---
Author Organization [facility] Address [address] [place] [address] Care Team Providers Care Leaflet Distributor Name Role Phone Areli Gurrola MD Primary Care Provider Encounter Details Date Type Department Care Team (Latest Contact Info) Description 02/21/2000 Outpatient Historical [facility] [address] [place] [address] Trell York MD [address] [place] [phone] Stricture of cervix (Primary Dx); Lumbago Social [...] documented as of this encounter Care Teams Leaflet Distributor Relationship Specialty Start Date End Date Areli Gurrola MD [address] [place] [address] PCP - General Specialist 08/12/19 documented as of this encounter
--- OUTSIDE RECORDS SUMMARY | 2025-03-08 01:24 | XMS_ITS | Encounter Summary ---
Author Organization [facility] Address [address] [place] [address] Care Team Providers Care Perinatal Specialist Name Role Phone Areli Gurrola MD Primary Care Provider Encounter Details Date Type Department Care Team (Latest Contact Info) Description 08/09/1999 Outpatient Historical [facility] [address] [place] [address] Trell York MD [address] [place] [phone] Stricture of cervix (Primary Dx) Social History Tobacco Use Types Packs/Day Years Used Date Smoking Tobacco: Never Assessed Comments Unknown Sex and Gender Information Value Date Recorded Sex Assigned at Not on file Legal Sex Female 3:40 AM CYBER SYSTEMS OPERATIONS SPECIALIST Gender Identity Not on file Sexual [...] documented as of this encounter Care Teams Perinatal Specialist Relationship Specialty Start Date End Date Areli Gurrola MD [address] [facility] [place] [phone] PCP - General Specialist 08/12/19 documented as of this encounter
--- OUTSIDE RECORDS SUMMARY | 2025-03-08 01:24 | XMS_ITS | Encounter Summary ---
Author Organization [facility] Address [address] [place] [address] Care Team Providers Care Warp Knitter Name Role Phone Areli Gurrola MD Primary Care Provider Encounter Details Date Type Department Care Team (Late st Contact Info) Description 06/11/2001 Outpatient Historical [facility] Gen Spec Surg [address] [place] [address] Social History Tobacco Use Types Packs/Day Years Used Date Smoking Tobacco: Never Assessed Comments Unknown Sex and Gender Information Value Date Recorded Sex Assigned at Not on file Legal Sex Female 3:40 AM MEDICAL TECHNOLOGIST CHIEF Gender Identity Not on file Sexual Orientation Not on file documented as of this encounter Plan of Treatment Not on file documented as of this encounter Visit Diagnoses Not on filedocumented in this encounter Additional Health Concerns Infection Onset Date Last Indicated Resolved Time R/O COVID-19 01/31/2020 01/31/2020 02/02/2020 10:3 2 AM CDT documented as of this encounter Care Teams Warp Knitter Relationship Specialty Start Date End Date Areli Gurrola MD [address] [place] [address] PCP - General Specialist 08/12/19 documented as of this encounter
--- OUTSIDE RECORDS SUMMARY | 2025-03-08 01:24 | XMS_ITS | Encounter Summary ---
Author Organization [facility] Address [address] [facility] Attn: [place] [address] Care Team Providers Care Staff Development Educator Name Role Phone Areli Gurrola MD Primary Care Provider Encounter Details Date Type Department Care Team (Late st Contact Info) Description 11/10/1999 Outpatient Historical Joseph Ramos MD [address] [place] [address] Social History Tobacco Use Types Packs/Day Years Used Date Smoking Tobacco: Never Assessed Comments Unknown Sex and Gender Information Value Date Recorded Sex Assigned at Not on file Legal Sex Female 3:40 AM LINING CLOSER Gender Identity Not on file Sexual Orientation Not on file documented as of this encounter Plan of Treatment Not on file documented as of this encounter Visit Diagnoses Not on filedocumented in this encounter Additional Health Concerns Infection Onset Date Last Indicated Resolved Time R/O COVID-19 01/31/2020 01/31/2020 02/02/2020 10:3 2 AM CDT documented as of this encounter Care Teams Staff Development Educator Relationship Specialty Start Date End Date Areli Gurrola MD [address] [facility] [place] [address] PCP - General Specialist 08/12/19 documented as of this encounter
--- OUTSIDE RECORDS SUMMARY | 2025-03-08 01:24 | XMS_ITS | Encounter Summary ---
Author Organization [facility] Address [address] [place] [address] Care Team Providers Care Wastewater Design Engineer Name Role Phone Areli Gurrola MD Primary Care Provider Encounter Details Date Type Department Care Team (Latest Contact Info) Description 06/07/[address] [facility] [address] [place] [address] Terll York MD [address] [place] [phone] Lumbago (Primary Dx); Open wound of foot except toe(s) alone, without mention of complication Social History Tobacco Use Types Packs/Day Years Used Date Smoking Tobacco: Never Assessed Comments Unknown Sex and Gender Information Value Date Recorded Sex Assigned at Not on file Legal Sex Female 3:40 AM LACTATION COORDINATOR Gender Identity Not on file Sexual [...] documented as of this encounter Care Teams Wastewater Design Engineer Relationship Specialty Start Date End Date Areli Gurrola MD [address] [facility] [place] [address] PCP - General Specialist 08/12/19 documented as of this encounter
--- OUTSIDE RECORDS SUMMARY | 2025-03-08 01:24 | XMS_ITS | Encounter Summary ---
Author Organization [facility] Address [address] [place] [address] Care Team Providers Care Perfumer Name Role Phone Areli Gurrola MD Primary Care Provider Encounter Details Date Type Department Care Team (Latest Contact Info) Description 07/27/2000 Outpatient Historical [facility] [address] [place] [address] Trell York MD [address] [place] [phone] Unspecified disorder of female genital organs (Primary Dx); Cervicalgia Social History Tobacco Use Types Packs/Day Years Used Date Smoking Tobacco: Never Assessed Comments Unknown Sex and Gender Information Value Date Recorded Sex Assigned at Not on file Legal Sex Female 3:40 AM LEASING CONSULTANT Gender Identity Not on file Sexual [...] documented as of this encounter Care Teams Perfumer Relationship Specialty Start Date End Date Areli Gurrola MD [address] [place] [address] PCP - General Specialist 08/12/19 documented as of this encounter
--- OUTSIDE RECORDS SUMMARY | 2025-03-08 01:24 | XMS_ITS | Encounter Summary ---
Author Organization [facility] Address [address] [place] [address] Care Team Providers Care Assembler Final Name Role Phone Areli Gurrola MD Primary Care Provider Encounter Details Date Type Department Care Team (Latest Contact Info) Description 01/07/2001 Outpatient [facility] [address] [place] [address] Trell York MD [address] [place] [phone] Unspecified disorder of female genital organs (Primary Dx); Cervicalgia; Lumbago Social History Tobacco Use Types Packs/Day Years Used Date Smoking Tobacco: Never Assessed Comments Unknown Sex and Gender Information Value Date Recorded Sex Assigned at Not on file Legal Sex Female 3:40 AM PATIENT ADMITTING REPRESENTATIVE Gender Identity Not on file Sexual [...] documented as of this encounter Care Teams Assembler Final Relationship Specialty Start Date End Date Areli Gurrola MD [address] [place] [address] PCP - General Specialist 08/12/19 documented as of this encounter
--- OUTSIDE RECORDS SUMMARY | 2025-03-08 01:24 | XMS_ITS | Encounter Summary ---
Author Organization [facility] Address [address] [place] [address] Care Team Providers Care Field Artillery Targeting Technician Name Role Phone Areli Gurrloa MD Primary Care Provider Encounter Details Date Type Department Care Team (Latest Contact Info) Description 05/24/1999 Outpatient Historical [facility] [address] [place] [address] Trell York MD [address] [place] [phone] Edema (Primary Dx); Lumbago Social History Tobacco Use Types Packs/Day Years Used Date Smoking Tobacco: Never Assessed Comments Unknown Sex and Gender Information Value Date Recorded Sex Assigned at Not on file Legal Sex Female 3:40 AM AUTO TECHNICIAN MECHANIC Gender Identity Not on file Sexual [...] as of this encounter Care Teams Field Artillery Targeting Technician Relationship Specialty Start Date End Date Areli Gurrola MD [address] [facility] [place] [address] PCP - General Specialist 08/12/19 documented as of this encounter
--- OUTSIDE RECORDS SUMMARY | 2025-03-08 01:24 | XMS_ITS | Encounter Summary ---
Author Organization [facility] Address [address] [facility] [address] Attn: [place] [address] Care Team Providers Care Torpedo Shooter Name Role Phone Areli Gurrola MD Primary [...] file Legal Sex Female 3:40 AM PRESIDENT AND CEO Gender Identity Not on file Sexual Orientation Not on file documented as of this encounter Plan of Treatment Not on file documented as of this encounter Visit Diagnoses Not on filedocumented in this encounter Additional Health Concerns Infection Onset Date Last Indicated Resolved Time R/O COVID-19 01/31/2020 01/31/2020 02/02/2020 10:3 2 AM CDT documented as of this encounter Care Teams Torpedo Shooter Relationship Specialty Start Date End Date Areli Gurrola MD [address] [facility] [place] [address] PCP - General Specialist 08/12/19 documented as of this encounter
--- OUTSIDE RECORDS SUMMARY | 2025-03-08 01:24 | XMS_ITS | Encounter Summary ---
Author Organization [facility] Address [address] [place] [address] Care Team Providers Care Stock Drier Tender Name Role Phone Areli Gurrola MD Primary Care Provider Encounter Details Date Type Department Care Team (Latest Contact Info) Description 12/27/1999 [facility]patient [facility] [address] [place] [address] Trell York MD [address] [place] [phone] Migraine without aura, without mention of intractable migraine without mention of status migrainosus (Primary Dx); Lumbago Social History Tobacco Use Types Packs/Day Years Used Date Smoking Tobacco: Never Assessed Comments Unknown Sex and Gender Information Value Date Recorded Sex Assigned at Not on file Legal Sex Female 3:40 AM NURSES MEDICAL ASSISTANTS PHLEBOTOMISTS Gender Identity Not on file Sexual Orientation [...] documented as of this encounter Care Teams Stock Drier Tender Relationship Specialty Start Date End Date Areli Gurrola MD [address] [facility] [place] [address] PCP - General Specialist 08/12/19 documented as of this encounter
--- OUTSIDE RECORDS SUMMARY | 2025-03-08 01:24 | XMS_ITS | Encounter Summary ---
Author Organization [facility] Address [address] [facility] Attn: [place] [address] Care Team Providers Care Clinical Education Specialist Name Role Phone Areli Gurrola MD Primary Care Provider Encounter Details Date Type Department Care Team (Late st Contact Info) Description 11/16/1999 Outpatient Historical Joseph Ramos MD [address] [place] [address] Social History Tobacco Use Types Packs/Day Years Used Date Smoking Tobacco: Never Assessed Comments Unknown Sex and Gender Information Value Date Recorded Sex Assigned at Not on file Legal Sex Female 3:40 AM DAMAGE CUTTER Gender Identity Not on file Sexual Orientation Not on file documented as of this encounter Plan of Treatment Not on file documented as of this encounter Visit Diagnoses Not on filedocumented in this encounter Additional Health Concerns Infection Onset Date Last Indicated Resolved Time R/O COVID-19 01/31/2020 01/31/2020 02/02/2020 10:3 2 AM CDT documented as of this encounter Care Teams Clinical Education Specialist Relationship Specialty Start Date End Date Areli Gurrola MD [address] [facility] [place] [address] PCP - General Specialist 08/12/19 documented as of this encounter
--- OUTSIDE RECORDS SUMMARY | 2025-03-08 01:24 | XMS_ITS | Encounter Summary ---
Author Organization [facility] Address [address] [place] [address] Care Team Providers Care Rehabilitation Specialist Name Role Phone Areli Gurrola MD Primary Care Provider Encounter Details Date Type Department Care Team (Latest Contact Info) Description 08/18/1999 Outpatient Historical [facility] Joseph Ramos MD [address] [place] [address] Pain in joint, hand (Primary Dx) Social History Tobacco Use Types Packs/Day Years Used Date Smoking Tobacco: Never Assessed Comments Unknown Sex and Gender Information Value Date Recorded Sex Assigned at Not on file Legal Sex Female 3:40 AM DIRECTOR OF MARKETING [employer] PERFORMANCE ADS Gender Identity Not on file Sexual Orientation [...] as of this encounter Care Teams Rehabilitation Specialist Relationship Specialty Start Date End Date Areli Gurrola MD [address] [facility] [place] [place] [address] PCP - General Specialist 08/12/19 documented as of this encounter
--- OUTSIDE RECORDS SUMMARY | 2025-03-08 01:24 | XMS_ITS | Encounter Summary ---
Author Organization [facility] Address [address] [facility] Attn: [place] [address] Care Team Providers Care Pyrotechnic Mixer Name Role Phone Areli Gurrola MD Primary Care Provider Encounter Details Date Type Department Care Team (Late st Contact Info) Description 08/24/1999 Outpatient Historical Joseph Ramos MD [address] [place] [address] Social History Tobacco Use Types Packs/Day Years Used Date Smoking Tobacco: Never Assessed Comments Unknown Sex and Gender Information Value Date Recorded Sex Assigned at Not on file Legal Sex Female 3:40 AM EROSION CONTROL SPECIALIST Gender Identity Not on file Sexual Orientation Not on file documented as of this encounter Plan of Treatment Not on file documented as of this encounter Visit Diagnoses Not on filedocumented in this encounter Additional Health Concerns Infection Onset Date Last Indicated Resolved Time R/O COVID-19 01/31/2020 01/31/2020 02/02/2020 10:3 2 AM CDT documented as of this encounter Care Teams Pyrotechnic Mixer Relationship Specialty Start Date End Date Areli Gurrola MD [address] [facility] [place] [address] PCP - General Specialist 08/12/19 documented as of this encounter
--- OUTSIDE RECORDS SUMMARY | 2025-03-08 01:24 | XMS_ITS | Encounter Summary ---
Author Organization [facility] Address [address] [place] [address] Care Team Providers Care Cascade Operator Name Role Phone Areli Gurrola MD Primary Care Provider Encounter Details Date Type Department Care Team (Latest Contact Info) Description 04/23/2000 Outpatient Historical [facility] [address] [place] [address] Trell York MD [address] [place] [phone] Cervicalgia (Primary Dx); Other convulsions Social History Tobacco Use Types Packs/Day Years Used Date Smoking Tobacco: Never Assessed Comments Unknown Sex and Gender Information Value Date Recorded Sex Assigned at Not on file Legal Sex Female 3:40 AM SENIOR RUBY DEVELOPER Gender Identity Not on file Sexual [...] documented as of this encounter Care Teams Cascade Operator Relationship Specialty Start Date End Date Areli Gurrola MD [address] [facility] [place] [address] PCP - General Specialist 08/12/19 documented as of this encounter
--- OUTSIDE RECORDS SUMMARY | 2025-03-08 01:24 | XMS_ITS | Encounter Summary ---
Author Organization [facility] Address [address] [place]: [place] [address] Care Team Providers Care Senior Rd Engineer Name Role Phone Areli Gurrola MD Primary Care Provider Encounter Details Date Type Department Care Team (Late st Contact Info) Description 06/06/2001 Outpatient Historical [place], Trell Pascual MD [address] [place] [phone] Social History Tobacco Use Types Packs/Day Years Used Date Smoking Tobacco: Never Assessed Comments Unknown Sex and Gender Information Value Date Recorded Sex Assigned at Not on file Legal Sex Female 3:40 AM PATIENT ACCESS SPECIALIST Gender Identity Not on file Sexual Orientation Not on file documented as of this encounter Plan of Treatment Not on file documented as of this encounter Visit Diagnoses Not on filedocumented in this encounter Additional Health Concerns Infection Onset Date Last Indicated Resolved Time R/O COVID-19 01/31/2020 01/31/2020 02/02/2020 10:3 2 AM CDT documented as of this encounter Care Teams Senior Rd Engineer Relationship Specialty Start Date End Date Areli Gurrola MD [address] [place] [address] PCP - General Specialist 08/12/19 documented as of this encounter
--- OUTSIDE RECORDS SUMMARY | 2025-03-08 01:24 | XMS_ITS | Encounter Summary ---
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 HELPER Gender Identity Not on file Sexual Orientation Not on file documented as of this encounter Plan of Treatment Not on file documented as of this encounter Visit Diagnoses Not on filedocumented in this encounter Additional Health Concerns Infection Onset Date Last Indicated Resolved Time R/O COVID-19 01/31/2020 01/31/2020 02/02/2020 10:3 2 AM CDT documented as of this encounter Care Teams Automobile Service Station Manager Relationship Specialty Start Date End Date Areli Gurrola MD [address] [facility] [place] [address] PCP - General Specialist 08/12/19 documented as of this encounter
--- OUTSIDE RECORDS SUMMARY | 2025-03-08 01:24 | XMS_ITS | Encounter Summary ---
Author Organization [facility] Address [address] [place] [address] Care Team Providers Care Straw Hat Machine Operator Name Role Phone Areli Gurrola MD Primary Care Provider Encounter Details Date Type Department Care Team (Late st Contact Info) Description 05/03/1999 Outpatient Historical [facility] [place], Gibran Lynn MD [address] [facility] [address] [place] [address] Cramp of limb (Primary Dx) Social History Tobacco Use Types Packs/Day Years Used Date Smoking Tobacco: Never Assessed Comments Unknown Sex and Gender Information Value Date Recorded Sex Assigned at Not on file Legal Sex Female 3: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
--- OUTSIDE RECORDS SUMMARY | 2025-03-08 01:24 | XMS_ITS | Encounter Summary ---
Author Organization [facility] Address [address] [place] [address] Care Team Providers Care Grocery Team Member Name Role Phone Areli Gurrola MD Primary Care Provider Encounter Details Date Type Department Care Team (Latest Contact Info) Description 09/29/1999 Outpatient Historical [facility] [address] [place] [address] Trell York MD [address] [place] [phone] Obesity, unspecified (Primary Dx); Lumbago Social History Tobacco Use Types Packs/Day Years Used Date Smoking Tobacco: Never Assessed Comments Unknown Sex and Gender Information Value Date Recorded Sex Assigned at Not on file Legal Sex Female 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
--- OUTSIDE RECORDS SUMMARY | 2025-03-08 01:24 | XMS_ITS | Encounter Summary ---
Author Organization [facility] Address [address] [place] [address] Care Team Providers Care Oven Stripper Name Role Phone Areli Gurrola MD Primary Care Provider Encounter Details Date Type Department Care Team (Latest Contact Info) Description 06/08/1999 Outpatient [facility] [address] [place] [address] Trell York MD [address] [place] [phone] Carpal tunnel syndrome (Primary Dx); Sprain of neck; Obesity, unspecified Social History Tobacco Use Types Packs/Day Years Used Date Smoking Tobacco: Never Assessed Comments Unknown Sex and Gender Information Value Date Recorded Sex Assigned at Not on file Legal Sex Female 3:40 AM TONGUE AND QUARTER STITCHER Gender Identity Not on file Sexual Orientation [...] as of this encounter Care Teams Oven Stripper Relationship Specialty Start Date End Date Areli Gurrola MD [address] [facility] [place] [address] PCP - General Specialist 08/12/19 documented as of this encounter
--- OUTSIDE RECORDS SUMMARY | 2025-03-08 01:24 | XMS_ITS | Encounter Summary ---
Author Organization [facility] Address [address] [place] [address] Care Team Providers Care Retail And Restaurant Name Role Phone Areli Gurrola MD Primary Care Provider Encounter Details Date Type Department Care Team (Latest Contact Info) Description 01/30/2000 Outpatient Historical [facility] [address] [place] [address] Trell York MD [address] [place] [phone] Lumbago (Primary Dx) Social History Tobacco Use Types Packs/Day Years Used Date Smoking Tobacco: Never Assessed Comments Unknown Sex and Gender Information Value Date Recorded Sex Assigned at Not on file Legal Sex Female 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
--- OUTSIDE RECORDS SUMMARY | 2025-03-08 01:24 | XMS_ITS | Encounter Summary ---
Author Organization [facility] Address [address] [facility] [facility] Attn: [place] [address] Care Team Providers Care Woodworking Machinist Name Role Phone Areli Gurrola MD [...] on file Legal Sex Female 3:40 AM UNDERWRITING MANAGER Gender Identity Not on file Sexual Orientation Not on file documented as of this encounter Plan of Treatment Not on file documented as of this encounter Visit Diagnoses Not on filedocumented in this encounter Additional Health Concerns Infection Onset Date Last Indicated Resolved Time R/O COVID-19 01/31/2020 01/31/2020 02/02/2020 10:3 2 AM CDT documented as of this encounter Care Teams Woodworking Machinist Relationship Specialty Start Date End Date Areli Gurrola MD [address] [place] [address] PCP - General Specialist 08/12/19 documented as of this encounter
--- OUTSIDE RECORDS SUMMARY | 2025-03-08 01:24 | XMS_ITS | Encounter Summary ---
Author Organization [facility] Address [address] [place] [address] Care Team Providers Care Application Security Consultant Name Role Phone Areli Grurola MD Primary Care Provider Encounter Details Date Type Department Care Team (Latest Contact Info) Description 06/20/1999 Outpatient Historical [facility] Joseph Ramos MD [address] [place] [address] Pain in joint, hand (Primary Dx) Social History Tobacco Use Types Packs/Day Years Used Date Smoking Tobacco: Never Assessed Comments Unknown Sex and Gender Information Value Date Recorded Sex Assigned at Not on file Legal Sex Female 3:40 AM UTILITIES MANAGER Gender Identity Not on file Sexual [...] documented as of this encounter Care Teams Application Security Consultant Relationship Specialty Start Date End Date Areli Gurrola MD [address] [facility] [place] [address] PCP - General Specialist 08/12/19 documented as of this encounter
--- OUTSIDE RECORDS SUMMARY | 2025-03-08 01:24 | XMS_ITS | Encounter Summary ---
Author Organization [facility] Address [address] [place] [address] Care Team Providers Care Automotive Service Writer Name Role Phone Areli Gurrola MD Primary Care Provider Encounter Details Date Type Department Care Team (Latest Contact Info) Description 05/09/1999 Outpatient Historical [facility] [address] [place] [address] Trell York MD [address] [place] [phone] Cervical spinal stenosis (Primary Dx); Contusion of elbow Social History Tobacco Use Types Packs/Day Years Used Date Smoking Tobacco: Never Assessed Comments Unknown Sex and Gender Information Value Date Recorded Sex Assigned at Not on file Legal 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
--- OUTSIDE RECORDS SUMMARY | 2025-03-08 01:24 | XMS_ITS | Encounter Summary ---
Author Organization [facility] Address [address] [place] [address] Care Team Providers Care Fondant Puff Maker Name Role Phone Areli Gurrola MD Primary Care Provider Encounter Details Date Type Department Care Team (Latest Contact Info) Description 06/08/1999 Outpatient Historical [facility] [place], Trell Pascual MD [address] [place] [address] Obesity, unspecified (Primary Dx); Encounter for long-term (current) use of other medications Social History Tobacco Use Types Packs/Day Years Used Date Smoking Tobacco: Never Assessed Comments Unknown Sex and Gender Information Value Date Recorded Sex Assigned at Not on file Legal Sex Female 3: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
--- OUTSIDE RECORDS SUMMARY | 2025-03-08 01:24 | XMS_ITS | Encounter Summary ---
Author Organization [facility] Address [address] [place] [address] Care Team Providers Care Wire Walker Name Role Phone Areli Gurrola MD Primary Care Provider Encounter Details Date Type Department Care Team (Latest Contact Info) Description 10/08/2000 Outpatient Historical [facility] [address] [place] [address] Trell York MD [address] [place] [phone] Sprain and strain of unspecified site of knee and leg (Primary Dx) Social History Tobacco Use Types Packs/Day Years Used Date Smoking Tobacco: Never Assessed Comments Unknown Sex and Gender Information Value Date Recorded Sex Assigned at Not on file Legal Sex Female 3:40 AM DISPATCHER TUGBOAT Gender Identity Not on file Sexual Orientation [...] documented as of this encounter Care Teams Wire Walker Relationship Specialty Start Date End Date Areli Gurrola MD [address] [facility] [place] [address] PCP - General Specialist 08/12/19 documented as of this encounter
--- OUTSIDE RECORDS SUMMARY | 2025-03-08 01:24 | XMS_ITS | Encounter Summary ---
Author Organization [facility] Address [address] [place] [address] Care Team Providers Care Layer Out Name Role Phone Areli Gurrola MD Primary Care Provider Encounter Details Date Type Department Care Team (Latest Contact Info) Description 03/14/2000 Outpatient 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
--- OUTSIDE RECORDS SUMMARY | 2025-03-08 01:24 | XMS_ITS | Encounter Summary ---
Author Organization [facility] Address [address] Attn: [place] [address] Care Team Providers Care Labor Relations Specialist Name Role Phone Areli Gurrola MD Primary Care Provider Encounter Details Date Type Department Care Team (Late st Contact Info) Description 08/19/1999 Outpatient Historical Joseph Ramos MD [address] [place] [address] Social History Tobacco Use Types Packs/Day Years Used Date Smoking Tobacco: Never Assessed Comments Unknown Sex and Gender Information Value Date Recorded Sex Assigned at Not on file Legal Sex Female 3:40 AM COAT EXAMINER Gender Identity Not on file Sexual Orientation Not on file documented as of this encounter Plan of Treatment Not on file documented as of this encounter Visit Diagnoses Not on filedocumented in this encounter Additional Health Concerns Infection Onset Date Last Indicated Resolved Time R/O COVID-19 01/31/2020 01/31/2020 02/02/2020 10:3 2 AM CDT documented as of this encounter Care Teams Labor Relations Specialist Relationship Specialty Start Date End Date Areli Gurrola MD [address] [facility] [place] [address] PCP - General Specialist 08/12/19 documented as of this encounter
--- OUTSIDE RECORDS SUMMARY | 2025-03-08 01:24 | XMS_ITS | Encounter Summary ---
Author Organization [facility] Address [address] [place] [address] Care Team Providers Care Healthcare Associate Name Role Phone Areli Gurrola MD Primary Care Provider Encounter Details Date Type Department Care Team (Latest Contact Info) Description 04/25/2001 Outpatient [facility] [address] [place] [address] Trell York MD [address] [place] [phone] ESOPHAGITIS, UNSPECIFIED (Primary Dx); LUMBAGO; SEBACEOUS CYST Social History Tobacco Use Types Packs/Day Years Used Date Smoking Tobacco: Never Assessed Comments Unknown Sex and Gender Information Value Date Recorded Sex Assigned at Not on file Legal Sex Female 3:40 AM NEON GLASS BENDER Gender Identity Not on file Sexual [...] documented as of this encounter Care Teams Healthcare Associate Relationship Specialty Start Date End Date Areli Gurrola MD [address] [place] [address] PCP - General Specialist 08/12/19 documented as of this encounter
--- OUTSIDE RECORDS SUMMARY | 2025-03-08 01:24 | XMS_ITS | Encounter Summary ---
Author Organization [facility] Address [address] [place] [address] Care Team Providers Care Upholstered Goods Crafter Name Role Phone Areli Gurrola MD Primary Care Provider Encounter Details Date Type Department Care Team (Latest Contact Info) Description 11/13/2000 Outpatient Historical [facility] [address] [place] [address] Trlel York MD [address] [place] [phone] Insomnia, unspecified (Primary Dx); Lumbago Social History Tobacco Use Types Packs/Day Years Used Date Smoking Tobacco: Never Assessed Comments Unknown Sex and Gender Information Value Date Recorded Sex Assigned at Not on file Legal Sex Female 3:40 AM SALES AND EVENTS COORDINATOR Gender Identity Not on file Sexual [...] documented as of this encounter Care Teams Upholstered Goods Crafter Relationship Specialty Start Date End Date Areli Gurrola MD [address] [facility] [place] [address] PCP - General Specialist 08/12/19 documented as of this encounter
--- OUTSIDE RECORDS SUMMARY | 2025-03-08 01:24 | XMS_ITS | Encounter Summary ---
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 Gender Identity Not on file Sexual Orientation Not on file documented as of this encounter Plan of Treatment Not on file documented as of this encounter Visit Diagnoses Not on filedocumented in this encounter Additional Health Concerns Infection Onset Date Last Indicated Resolved Time R/O COVID-19 01/31/2020 01/31/2020 02/02/2020 10:3 2 AM CDT documented as of this encounter Care Teams Information Assurance Analyst Relationship Specialty Start Date End Date Areli Gurrola MD [address] [facility] [place] [address] PCP - General Specialist 08/12/19 documented as of this encounter
--- OUTSIDE RECORDS SUMMARY | 2025-03-08 01:25 | XMS_ITS | Encounter Summary ---
Author Organization [facility] Address [address] [place] [address] Care Team Providers Care Rn New Graduate Name Role Phone Areli Gurrola MD Primary Care Provider Encounter Details Date Type Department Care Team (Late st Contact Info) Description 04/14/1999 Outpatient Historical [facility] Social History Tobacco Use Types Packs/Day Years Used Date Smoking Tobacco: Never Assessed Comments Unknown Sex and Gender Information Value Date Recorded Sex Assigned at Not on file Legal Sex Female 3:40 AM BOTTLE AND GLASS INSPECTOR Gender Identity Not on file Sexual Orientation Not on file documented as of this encounter Plan of Treatment Not on file documented as of this encounter Visit Diagnoses Not on filedocumented in this encounter Additional Health Concerns Infection Onset Date Last Indicated Resolved Time R/O COVID-19 01/31/2020 01/31/2020 02/02/2020 10:3 2 AM CDT documented as of this encounter Care Teams Rn New Graduate Relationship Specialty Start Date End Date Areli Gurrola MD [address] [place] [address] PCP - General Specialist 08/12/19 documented as of this encounter
--- OUTSIDE RECORDS SUMMARY | 2025-03-08 01:25 | XMS_ITS | Encounter Summary ---
Author Organization [facility] Address [address] [place] [address] Care Team Providers Care Road Production General Manager Name Role Phone Areli Gurrola MD Primary Care Provider Encounter Details Date Type Department Care Team (Late st Contact Info) Description 10/27/2002 Emergency [facility] Emergency Department [address] [place] [address] Cira Archibald MD NO ADDRESS ON FILE FEMALE GENITAL SYMPTOMS NOS (Primary Dx) Social History Tobacco Use Types Packs/Day Years Used Date Smoking Tobacco: Never Assessed Comments Unknown Sex and Gender Information Value Date Recorded Sex Assigned at Not on file Legal Sex Female 3:40 AM AUTO BODY ESTIMATOR Gender Identity Not on file Sexual Orientation [...] documented as of this encounter Care Teams Road Production General Manager Relationship Specialty Start Date End Date Areli Gurrola MD [address] [place] [address] PCP - General Specialist 08/12/19 documented as of this encounter
--- OUTSIDE RECORDS SUMMARY | 2025-03-08 01:25 | XMS_ITS | Encounter Summary ---
Author Organization [facility] Address [address] [place] [address] Care Team Providers Care Administrative Operations Coordinator Name Role Phone Areli Gurrola MD Primary Care Provider Encounter Details Date Type Department Care Team (Latest Contact Info) Description 02/14/1999 Outpatient Historical [facility] [address] [place] [address] [place], Gibran Lynn MD [address] [place] [address] Sprain and strain of other specified sites of shoulder and upper arm (Primary Dx) Social History Tobacco Use Types Packs/Day Years Used Date Smoking Tobacco: Never Assessed Comments Unknown Sex and Gender Information Value Date Recorded Sex Assigned at Not on file Legal Sex Female 3:40 AM TELECOM SALES CONSULTANT Gender Identity Not on file [...] documented as of this encounter Care Teams Administrative Operations Coordinator Relationship Specialty Start Date End Date Areli Gurrola MD [address] [place] [address] PCP - General Specialist 08/12/19 documented as of this encounter
--- OUTSIDE RECORDS SUMMARY | 2025-03-08 01:25 | XMS_ITS | Encounter Summary ---
Author Organization [facility] Address [address] [place] [address] Care Team Providers Care Silk Screen Repairer Name Role Phone Areli Gurrola MD Primary Care Provider Encounter Details Date Type Department Care Team (Latest Contact Info) Description 06/07/1998 Outpatient Historical [facility] Charli Perez MD NO ADDRESS ON FILE Open wound of forehead (Primary Dx) Social History Tobacco Use Types Packs/Day Years Used Date Smoking Tobacco: Never Assessed Comments Unknown Sex and Gender Information Value Date Recorded Sex Assigned at Not on file Legal Sex Female 3:40 AM 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
--- OUTSIDE RECORDS SUMMARY | 2025-03-08 01:25 | XMS_ITS | Encounter Summary ---
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 SAMPLING THEORY TEACHER Gender Identity Not on file Sexual Orientation Not on file documented as of this encounter Plan of Treatment Not on file documented as of this encounter Visit Diagnoses Not on filedocumented in this encounter Additional Health Concerns Infection Onset Date Last Indicated Resolved Time R/O COVID-19 01/31/2020 01/31/2020 02/02/2020 10:3 2 AM CDT documented as of this encounter Care Teams Student Ambassador Relationship Specialty Start Date End Date Areli Gurrola MD [address] [facility] [place] [address] PCP - General Specialist 08/12/19 documented as of this encounter
--- OUTSIDE RECORDS SUMMARY | 2025-03-08 01:25 | XMS_ITS | Encounter Summary ---
Author Organization [facility] Address [address] [place] [address] Care Team Providers Care National Opelint Analyst Name Role Phone Areli Gurrola MD Primary Care Provider Encounter Details Date Type Department Care Team (Latest Contact Info) Description 07/26/1998 Outpatient Historical HIS [facility] Charli Perez MD NO ADDRESS ON FILE Other specified aftercare following surgery (Primary Dx) Social History Tobacco Use Types Packs/Day Years Used Date Smoking Tobacco: Never Assessed Comments Unknown Sex and Gender Information Value Date Recorded Sex Assigned at Not on file Legal Sex Female 3:40 AM DRUPAL PROGRAMMER Gender Identity Not on file Sexual [...] documented as of this encounter Care Teams National Opelint Analyst Relationship Specialty Start Date End Date Areli Gurrola MD [address] [place] [address] PCP - General Specialist 08/12/19 documented as of this encounter
--- OUTSIDE RECORDS SUMMARY | 2025-03-08 01:25 | XMS_ITS | Encounter Summary ---
Author Organization [facility] Address [address] [place] [address] Care Team Providers Care Glass Etcher Name Role Phone Areli Gurrola MD Primary Care Provider Encounter Details Date Type Department Care Team (Late st Contact Info) Description 07/07/2004 Outpatient Historical [facility] Imaging Services [facility] [address] [place] [address] [place] [address] Social History Tobacco Use Types Packs/Day Years Used Date Smoking Tobacco: Never Assessed Comments Unknown Sex and Gender Information Value Date Recorded Sex Assigned at Not on file Legal Sex Female 3:40 AM DIRECTOR LAW ENFORCEMENT Gender Identity Not on file Sexual Orientation Not on file documented as of this encounter Plan of Treatment Not on file documented as of this encounter Visit Diagnoses Not on filedocumented in this encounter Additional Health Concerns Infection Onset Date Last Indicated Resolved Time R/O COVID-19 01/31/2020 01/31/2020 02/02/2020 10:3 2 AM CDT documented as of this encounter Care Teams Glass Etcher Relationship Specialty Start Date End Date Areli Gurrola MD [address] [place] [address] PCP - General Specialist 08/12/19 documented as of this encounter
--- OUTSIDE RECORDS SUMMARY | 2025-03-08 01:25 | XMS_ITS | Encounter Summary ---
Author Organization [facility] Address [address] [place] [address] Care Team Providers Care Bag Liner Name Role Phone Areli Gurrola MD Primary Care Provider Encounter Details Date Type Department Care Team (Latest Contact Info) Description 02/02/1999 Outpatient Historical [facility] [place] [address] Alumno, Gibran Lynn MD [address] [place] [address] Sprain and strain of other specified sites of shoulder and upper arm (Primary Dx); Hx musculoskletl dis NEC Social History Tobacco Use Types Packs/Day Years Used Date Smoking Tobacco: Never Assessed Comments Unknown Sex and Gender Information Value Date Recorded Sex Assigned at Not on file Legal Sex Female 3:40 AM REFRIGERATION ENGINEERING TEACHER Gender Identity Not on file Sexual [...] documented as of this encounter Care Teams Bag Liner Relationship Specialty Start Date End Date Areli Gurrola MD [address] [place] [address] PCP - General Specialist 08/12/19 documented as of this encounter
--- OUTSIDE RECORDS SUMMARY | 2025-03-08 01:25 | XMS_ITS | Encounter Summary ---
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
--- OUTSIDE RECORDS SUMMARY | 2025-03-08 01:25 | XMS_ITS | Encounter Summary ---
Author Organization [facility] Address [address] [place] [address] Care Team Providers Care Engine Maintenance Mechanic Name Role Phone Areli Gurrola MD Primary Care Provider Encounter Details Date Type Department Care Team (Latest Contact Info) Description 10/09/2002 Outpatient Historical [facility] [address] [place] [address] Gordon Cabral MD NO ADDRESS ON FILE Excessive menstruation (Primary Dx) Social History Tobacco Use Types Packs/Day Years Used Date Smoking Tobacco: Never Assessed Comments Unknown Sex and Gender Information Value Date Recorded Sex Assigned at Not on file Legal Sex Female 3: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
--- OUTSIDE RECORDS SUMMARY | 2025-03-08 01:25 | XMS_ITS | Encounter Summary ---
Author Organization [facility] Address [address] [place] [address] Care Team Providers Care Stock Roller Name Role Phone Areli Gurrola MD Primary Care Provider Encounter Details Date Type Department Care Team (Latest Contact Info) Description 01/11/2004 Outpatient Historical [facility] [address] [place] [address] Trell York MD [address] [place] [phone] CERVICALGIA (Primary Dx); DYSTHYMIC DISORDER Social History Tobacco Use Types Packs/Day Years Used Date Smoking Tobacco: Never Assessed Comments Unknown Sex and Gender Information Value Date Recorded Sex Assigned at Not on file Legal Sex Female 3:40 AM PIGMENT SUPPLIER Gender Identity Not on file Sexual Orientation [...] as of this encounter Care Teams Stock Roller Relationship Specialty Start Date End Date Areli Gurrola MD [address] [place] [phone] PCP - General Specialist 08/12/19 documented as of this encounter
--- OUTSIDE RECORDS SUMMARY | 2025-03-08 01:25 | XMS_ITS | Encounter Summary ---
Author Organization [facility] Address [address] [place] [address] Care Team Providers Care Floral Arranger Name Role Phone Areli Gurrola MD Primary Care Provider Encounter Details Date Type Department Care Team (Late st Contact Info) Description 03/18/1999 Outpatient Historical HIS [facility] Social History Tobacco Use Types Packs/Day Years Used Date Smoking Tobacco: Never Assessed Comments Unknown Sex and Gender Information Value Date Recorded Sex Assigned at Not on file Legal Sex Female 3:40 AM TAPE SEWER Gender Identity Not on file Sexual Orientation Not on file documented as of this encounter Plan of Treatment Not on file documented as of this encounter Visit Diagnoses Not on filedocumented in this encounter Additional Health Concerns Infection Onset Date Last Indicated Resolved Time R/O COVID-19 01/31/2020 01/31/2020 02/02/2020 10:3 2 AM CDT documented as of this encounter Care Teams Floral Arranger Relationship Specialty Start Date End Date Areli Gurrola MD [address] [place] [address] PCP - General Specialist 08/12/19 documented as of this encounter
--- OUTSIDE RECORDS SUMMARY | 2025-03-08 01:25 | XMS_ITS | Encounter Summary ---
Author Organization [facility] Address [address] [place] [address] Care Team Providers Care Rubber Stamps And Dies Supervisor Name Role Phone Areli Gurrola MD Primary Care Provider Encounter Details Date Type Department Care Team (Latest Contact Info) Description 06/26/2003 Outpatient Historical [facility] [address] [place] [address] Jim Matos [place] [address] [address] [place] [address] PRECORDIAL PAIN (Primary Dx) Social History Tobacco Use Types Packs/Day Years Used Date Smoking Tobacco: Never Assessed Comments Unknown Sex and Gender Information Value Date Recorded Sex Assigned at Not on file Legal Sex Female 3:40 AM ALCOHOL LAW ENFORCEMENT AGENT Gender Identity Not on file Sexual [...] as of this encounter Care Teams Rubber Stamps And Dies Supervisor Relationship Specialty Start Date End Date Areli Gurrola MD [address] [place] [address] PCP - General Specialist 08/12/19 documented as of this encounter
--- OUTSIDE RECORDS SUMMARY | 2025-03-08 01:25 | XMS_ITS | Encounter Summary ---
Author Organization [facility] Address [address] [place] [address] Care Team Providers Care Sieve Repairer Name Role Phone Areli Gurrola MD Primary Care Provider Encounter Details Date Type Department Care Team (Latest Contact Info) Description 04/11/2006 Outpatient Historical [facility] Medicine[facility] [address] [place] [address] Trell York MD [address] [place] [phone] Unspecified Essential Hypertension (Primary Dx); Dysthymic Disorder; Insomnia, Unspecified; Mononeuritis of Unspecified Site Social History Tobacco Use Types Packs/Day Years Used Date Smoking Tobacco: Never Assessed Comments Unknown Sex and Gender Information Value Date Recorded Sex Assigned at Not on file Legal Sex Female 3:40 AM SALES 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
--- OUTSIDE RECORDS SUMMARY | 2025-03-08 01:25 | XMS_ITS | Encounter Summary ---
Author Organization [facility] Address [address] [place] [address] Care Team Providers Care Sales Service Representative Name Role Phone Areli Gurrola MD Primary Care Provider Encounter Details Date Type Department Care Team (Late st Contact Info) Description 05/14/2003 Outpatient Historical [facility] [address] [place] [address] Roman Law, DO [address] [place] [phone] ACUTE SINUSITIS NOS (Primary Dx) Social History Tobacco Use Types Packs/Day Years Used Date Smoking Tobacco: Never Assessed Comments Unknown Sex and Gender Information Value Date Recorded Sex Assigned at Not on file Legal Sex Female 3:40 AM SCRIPT MANAGER Gender Identity Not on file Sexual [...] as of this encounter Care Teams Sales Service Representative Relationship Specialty Start Date End Date Areli Gurrola MD [address] [place] [address] PCP - General Specialist 08/12/19 documented as of this encounter
--- OUTSIDE RECORDS SUMMARY | 2025-03-08 01:25 | XMS_ITS | Encounter Summary ---
Author Organization [facility] Address [address] [place] [address] Care Team Providers Care Silver Solderer Name Role Phone Areli Gurrola MD Primary Care Provider Encounter Details Date Type Department Care Team (Latest Contact Info) Description 03/06/2005 Outpatient Historical [facility] [address] [place] [address] Trell York MD [address] [place] [phone] DENTAL DISORDER NOS (Primary Dx); CERVICALGIA; LUMBAGO; DYSTHYMIC DISORDER Social History Tobacco Use Types Packs/Day Years Used Date Smoking Tobacco: Never Assessed Comments Unknown Sex and Gender Information Value Date Recorded Sex Assigned at Not on file Legal Sex Female 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
--- OUTSIDE RECORDS SUMMARY | 2025-03-08 01:25 | XMS_ITS | Encounter Summary ---
Author Organization [facility] Address [address] [place] [address] Care Team Providers Care Collar Tailor Name Role Phone Areli Gurrola MD Primary Care Provider Encounter Details Date Type Department Care Team (Latest Contact Info) Description 10/20/2002 Outpatient Historical [facility] [address] [place] [address] Gordon Cabral MD NO ADDRESS ON FILE PREOP EXAM OTHER SPECIFIED (Primary Dx) Social History Tobacco Use Types Packs/Day Years Used Date Smoking Tobacco: Never Assessed Comments Unknown Sex and Gender Information Value Date Recorded Sex Assigned at Not on file Legal Sex Female 3:40 AM KETTLE OPERATOR HEAD Gender Identity Not on file Sexual [...] as of this encounter Care Teams Collar Tailor Relationship Specialty Start Date End Date Areli Gurrola MD [address] [place] [address] PCP - General Specialist 08/12/19 documented as of this encounter
--- OUTSIDE RECORDS SUMMARY | 2025-03-08 01:25 | XMS_ITS | Encounter Summary ---
Author Organization [facility] Address [address] [place] [address] Care Team Providers Care Increment Manager Name Role Phone Areli Gurrola MD Primary Care Provider Encounter Details Date Type Department Care Team (Latest Contact Info) Description 04/25/2004 Outpatient Historical [facility] [address] [place] [address] Trell York MD [address] [place] [phone] DYSTHYMIC DISORDER (Primary Dx); LUMBAGO; Pain in limb; Inflamed seborr keratos Social History Tobacco Use Types Packs/Day Years Used Date Smoking Tobacco: Never Assessed Comments Unknown Sex and Gender Information Value Date Recorded Sex Assigned at Not on file Legal Sex Female 3:40 AM SHAKE SPLITTER Gender Identity Not on file Sexual Orientation [...] documented as of this encounter Care Teams Increment Manager Relationship Specialty Start Date End Date Areli Gurrola MD [address] [place] [facility] [place] [address] PCP - General Specialist 08/12/19 documented as of this encounter
--- OUTSIDE RECORDS SUMMARY | 2025-03-08 01:25 | XMS_ITS | Encounter Summary ---
Author Organization [facility] Address [address] Attn: [place] [address] Care Team Providers Care Bituminous Paving Machine Operator Name Role Phone Areli Gurrola MD Primary Care Provider Encounter Details Date Type Department Care Team (Late st Contact Info) Description 03/12/1999 Outpatient Historical Alumno, Gibran Lynn MD [address] 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 Gender Identity Not on file Sexual Orientation Not on file documented as of this encounter Plan of Treatment Not on file documented as of this encounter Visit Diagnoses Not on filedocumented in this encounter Additional Health Concerns Infection Onset Date Last Indicated Resolved Time R/O COVID-19 01/31/2020 01/31/2020 02/02/2020 10:3 2 AM CDT documented as of this encounter Care Teams Bituminous Paving Machine Operator Relationship Specialty Start Date End Date Areli Gurrola MD [address] [facility] [place] [address] PCP - General Specialist 08/12/19 documented as of this encounter
--- OUTSIDE RECORDS SUMMARY | 2025-03-08 01:25 | XMS_ITS | Encounter Summary ---
Author Organization [facility] Address [address] [place] [address] Care Team Providers Care Broadcast Supervisor Name Role Phone Areli Gurrola MD Primary Care Provider Encounter Details Date Type Department Care Team (Latest Contact Info) Description 09/12/2005 Outpatient Historical [facility] [address] [place] [address] Trell Maria Jr., MD [address] [place] [address] Anxiety State, Unspecified (Primary Dx) Social History Tobacco Use Types Packs/Day Years Used Date Smoking Tobacco: Never Assessed Comments Unknown Sex and Gender Information Value Date Recorded Sex Assigned at Not on file Legal Sex Female 3:40 AM MAID CLEANING COOKING Gender Identity Not on file Sexual Orientation Not on file documented as of this encounter Plan of Treatment Not on file documented as of this encounter Visit Diagnoses Diagnosis Anxiety state, unspecified- Primary documented in this encounter Additional Health Concerns Infection Onset Date Last Indicated Resolved Time R/O COVID-19 01/31/2020 01/31/2020 02/02/2020 10:3 2 AM CDT documented as of this encounter Care Teams Broadcast Supervisor Relationship Specialty Start Date End Date Areli Gurrola MD [address] [place] [phone] PCP - General Specialist 08/12/19 documented as of this encounter
--- OUTSIDE RECORDS SUMMARY | 2025-03-08 01:25 | XMS_ITS | Encounter Summary ---
Author Organization [facility] Address [address] [place] [address] Care Team Providers Care Supervisor Powdered Metal Name Role Phone Areli Gurrola MD [...] file Legal Sex Female 3:40 AM BILL OF MATERIALS CLERK Gender Identity Not on file Sexual Orientation Not on file documented as of this encounter Plan of Treatment Not on file documented as of this encounter Visit Diagnoses Not on filedocumented in this encounter Additional Health Concerns Infection Onset Date Last Indicated Resolved Time R/O COVID-19 01/31/2020 01/31/2020 02/02/2020 10:3 2 AM CDT documented as of this encounter Care Teams Supervisor Powdered Metal Relationship Specialty Start Date End Date Areli Gurrola MD [address] [place] [address] PCP - General Specialist 08/12/19 documented as of this encounter
--- OUTSIDE RECORDS SUMMARY | 2025-03-08 01:25 | XMS_ITS | Encounter Summary ---
Author Organization [facility] Address [address] [place] [address] Care Team Providers Care Gas Processing Plant Operator Name Role Phone Areli Gurrola MD Primary Care Provider Encounter Details Date Type Department Care Team (Latest Contact Info) Description 10/28/2002 Outpatient [facility] [address] [place] [address] Gordon Cabral MD NO ADDRESS ON FILE SURGERY FOLLOWUP, UNSPEC (Primary Dx) Social History Tobacco Use Types Packs/Day Years Used Date Smoking Tobacco: Never Assessed Comments Unknown Sex and Gender Information Value Date Recorded Sex Assigned at Not on file Legal Sex Female 3:40 AM RATING EXAMINER Gender Identity Not on file Sexual [...] documented as of this encounter Care Teams Gas Processing Plant Operator Relationship Specialty Start Date End Date Areli Gurrola MD [address] [facility] [address] PCP - General Specialist 08/12/19 documented as of this encounter
--- OUTSIDE RECORDS SUMMARY | 2025-03-08 01:25 | XMS_ITS | Encounter Summary ---
Author Organization [facility] Address [address] [place] [address] Care Team Providers Care Clinical Technician Name Role Phone Areli Gurrola MD Primary Care Provider Encounter Details Date Type Department Care Team (Latest Contact Info) Description 03/09/1999 Outpatient [facility] [place] [address] Alumno, Gibran Lynn MD [address] [place] [address] Sprain and strain of unspecified site of shoulder and upper arm (Primary Dx); Backache, unspecified Social History Tobacco Use Types Packs/Day Years Used Date Smoking Tobacco: Never Assessed Comments Unknown Sex and Gender Information Value Date Recorded Sex Assigned at Not on file Legal Sex Female 3:40 AM CONFECTIONERY LABORATORY 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
--- OUTSIDE RECORDS SUMMARY | 2025-03-08 01:25 | XMS_ITS | Encounter Summary ---
Author Organization [facility] Address [address] [place] [address] Care Team Providers Care Test Fixture Designer Name Role Phone Areli Gurrola MD Primary Care Provider Encounter Details Date Type Department Care Team (Latest Contact Info) Description 05/03/1999 Outpatient Historical [facility] [place] [place] [address] Alumno, Gibran Lynn MD [address] [place] [address] Cramp of limb (Primary Dx); Contracture of hand joint Social History Tobacco Use Types Packs/Day Years Used Date Smoking Tobacco: Never Assessed Comments Unknown Sex and Gender Information Value Date Recorded Sex Assigned at Not on file Legal Sex Female 3:40 AM METAL FABRICATOR WELDER Gender Identity Not on file Sexual [...] documented as of this encounter Care Teams Test Fixture Designer Relationship Specialty Start Date End Date Areli Gurrola MD [address] [place] [address] PCP - General Specialist 08/12/19 documented as of this encounter
--- OUTSIDE RECORDS SUMMARY | 2025-03-08 01:25 | XMS_ITS | Encounter Summary ---
Author Organization [facility] Address [address] [place] [address] Care Team Providers Care Yacht Hand Name Role Phone Areli Gurrola MD Primary Care Provider Encounter Details Date Type Department Care Team (Latest Contact Info) Description 10/03/2002 Outpatient [facility] [address] [place] [address] Gordon Cabral MD NO ADDRESS ON FILE METRORRHAGIA (Primary Dx) Social History Tobacco Use Types Packs/Day Years Used Date Smoking Tobacco: Never Assessed Comments Unknown Sex and Gender Information Value Date Recorded Sex Assigned at Not on file Legal Sex Female 3:40 AM MOTEL FRONT 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
--- OUTSIDE RECORDS SUMMARY | 2025-03-08 01:25 | XMS_ITS | Encounter Summary ---
Author Organization [facility] Address [address] [place] [address] Care Team Providers Care Superintendent Stevedoring Name Role Phone Areli Gurrola MD Primary Care Provider Encounter Details Date Type Department Care Team (Latest Contact Info) Description 07/06/2004 Outpatient Historical [facility] [address] [place] [address] Trell York MD [address] [place] [phone] DYSTHYMIC DISORDER (Primary Dx); BACKACHE NOS; CERVICALGIA Social History Tobacco Use Types Packs/Day Years Used Date Smoking Tobacco: Never Assessed Comments Unknown Sex and Gender Information Value Date Recorded Sex Assigned at Not on file Legal Sex Female 3:40 AM BROADBAND TECHNICIAN Gender Identity Not on file Sexual [...] documented as of this encounter Care Teams Superintendent Stevedoring Relationship Specialty Start Date End Date Areli Gurrola MD [address] [place] [address] [address] PCP - General Specialist 08/12/19 documented as of this encounter
--- OUTSIDE RECORDS SUMMARY | 2025-03-08 01:25 | XMS_ITS | Encounter Summary ---
Author Organization [facility] Address [address] [place] [address] Care Team Providers Care Supervisor Maple Products Name Role Phone Areli Gurrola MD Primary Care Provider Encounter Details Date Type Department Care Team (Latest Contact Info) Description 07/07/2004 Outpatient Historical [facility] [place] [address] [place] [address] Trell York MD [address] [place] [phone] CERVICAL DISC DISPLACMNT (Primary Dx) Social History Tobacco Use Types Packs/Day Years Used Date Smoking Tobacco: Never Assessed Comments Unknown Sex and Gender Information Value Date Recorded Sex Assigned at Not on file Legal Sex Female 3:40 AM IMMUNOLOGY SPECIALIST Gender Identity Not on file Sexual [...] as of this encounter Care Teams Supervisor Maple Products Relationship Specialty Start Date End Date Areli Gurrola MD [address] [facility] [place] [address] PCP - General Specialist 08/12/19 documented as of this encounter
--- OUTSIDE RECORDS SUMMARY | 2025-03-08 01:25 | XMS_ITS | Encounter Summary ---
Author Organization [facility] Address [address] [place] [address] Care Team Providers Care Equipment Operator/Laborer/Supervisor Name Role Phone Areli Gurrola MD Primary Care Provider Encounter Details Date Type Department Care Team (Latest Contact Info) Description 07/05/1998 Outpatient Historical [facility] Charli Perez MD NO ADDRESS ON FILE Other specified aftercare following surgery (Primary Dx) Social History Tobacco Use Types Packs/Day Years Used Date Smoking Tobacco: Never Assessed Comments Unknown Sex and Gender Information Value Date Recorded Sex Assigned at Not on file Legal Sex Female 3:40 AM OPENER VERIFIER PACKER CUSTOMS Gender Identity Not on file Sexual Orientation [...] documented as of this encounter Care Teams Equipment Operator/Laborer/Supervisor Relationship Specialty Start Date End Date Areli Gurrola MD [address] [place] [phone] PCP - General Specialist 08/12/19 documented as of this encounter
--- OUTSIDE RECORDS SUMMARY | 2025-03-08 01:25 | XMS_ITS | Encounter Summary ---
Author Organization [facility] Address [address] [place] [address] Care Team Providers Care Support Manager Name Role Phone Areli Gurrola MD Primary Care Provider Encounter Details Date Type Department Care Team (Late st Contact Info) Description 04/07/1999 Outpatient Historical HIS [facility] Social History Tobacco Use Types Packs/Day Years Used Date Smoking Tobacco: Never Assessed Comments Unknown Sex and Gender Information Value Date Recorded Sex Assigned at Not on file Legal Sex Female 3:40 AM MANAGER OF IT Gender Identity Not on file Sexual Orientation Not on file documented as of this encounter Plan of Treatment Not on file documented as of this encounter Visit Diagnoses Not on filedocumented in this encounter Additional Health Concerns Infection Onset Date Last Indicated Resolved Time R/O COVID-19 01/31/2020 01/31/2020 02/02/2020 10:3 2 AM CDT documented as of this encounter Care Teams Support Manager Relationship Specialty Start Date End Date Areli Gurrola MD [address] [place] [address] PCP - General Specialist 08/12/19 documented as of this encounter
--- OUTSIDE RECORDS SUMMARY | 2025-03-08 01:25 | XMS_ITS | Encounter Summary ---
Author Organization [facility] Address [address] [place] [address] Care Team Providers Care Bias Binding Folder Name Role Phone Areli Gurrola MD Primary Care Provider Encounter Details Date Type Department Care Team (Latest Contact Info) Description 02/14/1999 Outpatient Historical [facility] Conrad Berrien [address] [place] [address] AlumnoGibran MD [address] [place] [address] Lumbago (Primary Dx) Social History Tobacco Use Types Packs/Day Years Used Date Smoking Tobacco: Never Assessed Comments Unknown Sex and Gender Information Value Date Recorded Sex Assigned at Not on file Legal Sex Female 3:40 AM SEAL DELIVERY VEHICLE TEAM TECHNICIAN Gender Identity Not on file Sexual Orientation Not on file documented as of this encounter Plan of Treatment Not on file documented as of this encounter Visit Diagnoses Diagnosis Lumbago- Primary documented in this encounter Additional Health Concerns Infection Onset Date Last Indicated Resolved Time R/O COVID-19 01/31/2020 01/31/2020 02/02/2020 10:3 2 AM CDT documented as of this encounter Care Teams Bias Binding Folder Relationship Specialty Start Date End Date Areli Gurrola MD [address] [place] [address] PCP - General Specialist 08/12/19 documented as of this encounter
--- OUTSIDE RECORDS SUMMARY | 2025-03-08 01:25 | XMS_ITS | Encounter Summary ---
Author Organization [facility] Address [address] [place] [address] Care Team Providers Care Medical Associate Name Role Phone Areli Gurrola MD Primary Care Provider Encounter Details Date Type Department Care Team (Latest Contact Info) Description 02/20/2005 Outpatient Historical [facility] [address] [place] [address] Trell York MD [address] [place] [phone] LUMBAGO (Primary Dx); DYSTHYMIC DISORDER; ANXIETY STATE NOS; CERVICALGIA Social History Tobacco Use Types Packs/Day Years Used Date Smoking Tobacco: Never Assessed Comments Unknown Sex and Gender Information Value Date Recorded Sex Assigned at Not on file Legal Sex Female 3:40 AM MINE BOSS Gender Identity Not on file Sexual [...] as of this encounter Care Teams Medical Associate Relationship Specialty Start Date End Date Areli Gurrola MD [address] [place] [address] PCP - General Specialist 08/12/19 documented as of this encounter
--- OUTSIDE RECORDS SUMMARY | 2025-03-08 01:25 | XMS_ITS | Encounter Summary ---
Author Organization [facility] Address [address] [place] [address] Care Team Providers Care Color Worker Name Role Phone Areli Gurrola MD Primary Care Provider Encounter Details Date Type Department Care Team (Latest Contact Info) Description 07/19/1998 Outpatient Historical [facility] [...] file Legal Sex Female 3:40 AM SENIOR SALES EXECUTIVE Gender Identity Not on file [...] documented as of this encounter Care Teams Color Worker Relationship Specialty Start Date End Date Areli Gurrola MD [address] [place] [address] PCP - General Specialist 08/12/19 documented as of this encounter
--- OUTSIDE RECORDS SUMMARY | 2025-03-08 01:25 | XMS_ITS | Encounter Summary ---
Author Organization [facility] Address [address] [place] [address] Care Team Providers Care Knot Tying Operator Name Role Phone Areli Gurrola MD Primary Care Provider Encounter Details Date Type Department Care Team (Late st Contact Info) Description 04/11/1999 Outpatient Historical HIS [facility] Social [...] documented as of this encounter Care Teams Knot Tying Operator Relationship Specialty Start Date End Date Areli Gurrola MD [address] [place] [address] PCP - General Specialist 08/12/19 documented as of this encounter
--- OUTSIDE RECORDS SUMMARY | 2025-03-08 01:25 | XMS_ITS | Encounter Summary ---
Author Organization [facility] Address [address] [place] [address] Care Team Providers Care Aoc Operations Intelligence Officer Name Role Phone Areli Gurrola MD Primary Care Provider Encounter Details Date Type Department Care Team (Latest Contact Info) Description 03/14/1999 [facility]patient [facility] [address] [place] [address] Ti Rondon MD [address] [place] [address] Abdominal pain, unspecified site (Primary Dx); Fever and other physiologic disturbances of temperature regulation; Backache, unspecified Social History Tobacco Use Types Packs/Day Years Used Date Smoking Tobacco: Never Assessed Comments Unknown Sex and Gender Information Value Date Recorded Sex Assigned at Not on file Legal Sex Female 3:40 AM BOBBIN MARKER Gender Identity Not on file Sexual [...] documented as of this encounter Care Teams Aoc Operations Intelligence Officer Relationship Specialty Start Date End Date Areli Gurrola MD [address] [place] [address] PCP - General Specialist 08/12/19 documented as of this encounter
--- OUTSIDE RECORDS SUMMARY | 2025-03-08 01:25 | XMS_ITS | Encounter Summary ---
Author Organization [facility] Address [address] [place] [address] Care Team Providers Care Information Management Officer Name Role Phone Areli Gurrola MD Primary Care Provider Encounter Details Date Type Department Care Team (Latest Contact Info) Description 06/22/[address] [facility] [address] [place] [address] Trell York MD [address] [place] [phone] CHEST PAIN NOS (Primary Dx); ABN INVOLUN MOVEMENT NEC; CERVICALGIA Social History Tobacco Use Types Packs/Day Years Used Date Smoking Tobacco: Never Assessed Comments Unknown Sex and Gender Information Value Date Recorded Sex Assigned at Not on file Legal Sex Female 3:40 AM GRAIN OPERATOR Gender Identity Not on file Sexual [...] as of this encounter Care Teams Information Management Officer Relationship Specialty Start Date End Date Areli Gurrola MD [address] [facility] [place] [address] PCP - General Specialist 08/12/19 documented as of this encounter
--- OUTSIDE RECORDS SUMMARY | 2025-03-08 01:25 | XMS_ITS | Encounter Summary ---
Author Organization [facility] Address [address] [place] [address] Care Team Providers Care Bleach Boiler Puller Name Role Phone Areli Gurrola MD Primary Care Provider Encounter Details Date Type Department Care Team (Late st Contact Info) Description 03/31/1999 Outpatient Historical HIS [facility] Social History Tobacco Use Types Packs/Day Years Used Date Smoking Tobacco: Never Assessed Comments Unknown Sex and Gender Information Value Date Recorded Sex Assigned at Not on file Legal Sex Female 3:40 AM PIN MACHINE OPERATOR Gender Identity Not on file Sexual Orientation Not on file documented as of this encounter Plan of Treatment Not on file documented as of this encounter Visit Diagnoses Not on filedocumented in this encounter Additional Health Concerns Infection Onset Date Last Indicated Resolved Time R/O COVID-19 01/31/2020 01/31/2020 02/02/2020 10:3 2 AM CDT documented as of this encounter Care Teams Bleach Boiler Puller Relationship Specialty Start Date End Date Areli Gurrola MD [address] [place] [address] PCP - General Specialist 08/12/19 documented as of this encounter
--- OUTSIDE RECORDS SUMMARY | 2025-03-08 01:25 | XMS_ITS | Encounter Summary ---
Author Organization [facility] Address [address] [place] [address] Care Team Providers Care Hematologist Name Role Phone Areli Gurrola MD Primary Care Provider Encounter Details Date Type Department Care Team (Late st Contact Info) Description 04/11/1999 Outpatient Historical [facility] Social History Tobacco Use Types Packs/Day Years Used Date Smoking Tobacco: Never Assessed Comments Unknown Sex and Gender Information Value Date Recorded Sex Assigned at Not on file Legal Sex Female 3:40 AM MACHINE CEMENTER Gender Identity Not on file Sexual Orientation Not on file documented as of this encounter Plan of Treatment Not on file documented as of this encounter Visit Diagnoses Not on filedocumented in this encounter Additional Health Concerns Infection Onset Date Last Indicated Resolved Time R/O COVID-19 01/31/2020 01/31/2020 02/02/2020 10:3 2 AM CDT documented as of this encounter Care Teams Hematologist Relationship Specialty Start Date End Date Areli Gurrola MD [address] [place] [address] PCP - General Specialist 08/12/19 documented as of this encounter
--- OUTSIDE RECORDS SUMMARY | 2025-03-08 01:25 | XMS_ITS | Encounter Summary ---
Author Organization [facility] Address [address] [place] [address] Care Team Providers Care Custom Protection Officer Name Role Phone Areli Gurrola MD Primary Care Provider Encounter Details Date Type Department Care Team (Late st Contact Info) Description 04/07/1999 Outpatient Historical HIS [facility] Social History Tobacco Use Types Packs/Day Years Used Date Smoking Tobacco: Never Assessed Comments Unknown Sex and Gender Information Value Date Recorded Sex Assigned at Not on file Legal Sex Female 3:40 AM TERRITORY ACCOUNT EXECUTIVE Gender Identity Not on file Sexual Orientation Not on file documented as of this encounter Plan of Treatment Not on file documented as of this encounter Visit Diagnoses Not on filedocumented in this encounter Additional Health Concerns Infection Onset Date Last Indicated Resolved Time R/O COVID-19 01/31/2020 01/31/2020 02/02/2020 10:3 2 AM CDT documented as of this encounter Care Teams Custom Protection Officer Relationship Specialty Start Date End Date Areli Gurrola MD [address] [place] [address] PCP - General Specialist 08/12/19 documented as of this encounter
--- OUTSIDE RECORDS SUMMARY | 2025-03-08 01:25 | XMS_ITS | Encounter Summary ---
Author Organization [facility] Address [address] [place] [address] Care Team Providers Care Salad Chef Name Role Phone Areli Gurrola MD Primary Care Provider Encounter Details Date Type Department Care Team (Latest Contact Info) Description 10/22/2002 Outpatient Historical [facility] Operating Room [address] [place] [address] Gordon Cabral MD NO ADDRESS ON FILE POLYP OF CORPUS UTERI (Primary Dx) Social History Tobacco Use Types Packs/Day Years Used Date Smoking Tobacco: Never Assessed Comments Unknown Sex and Gender Information Value Date Recorded Sex Assigned at Not on file Legal Sex Female 3:40 AM SPRAY MACHINE OPERATOR Gender Identity Not on file [...] documented as of this encounter Care Teams Salad Chef Relationship Specialty Start Date End Date Areli Gurrola MD [address] [place] [address] PCP - General Specialist 08/12/19 documented as of this encounter
--- OUTSIDE RECORDS SUMMARY | 2025-03-08 01:25 | XMS_ITS | Encounter Summary ---
Author Organization [facility] Address [address] [place] [address] Care Team Providers Care Correctional Casework Specialist Name Role Phone Areli Gurrola MD Primary Care Provider Encounter Details Date Type Department Care Team (Latest Contact Info) Description 05/20/2003 Outpatient Historical [facility] [address] [place] [address] Trell York MD [address] [place] [phone] ACUTE BRONCHITIS (Primary Dx) Social History Tobacco Use Types Packs/Day Years Used Date Smoking Tobacco: Never Assessed Comments Unknown Sex and Gender Information Value Date Recorded Sex Assigned at Not on file Legal Sex Female 3:40 AM TELEPHONE TRIAGE NURSE Gender Identity Not on file Sexual [...] as of this encounter Care Teams Correctional Casework Specialist Relationship Specialty Start Date End Date Areli Gurrola MD [address] [facility] [place] [address] PCP - General Specialist 08/12/19 documented as of this encounter
--- OUTSIDE RECORDS SUMMARY | 2025-03-08 01:25 | XMS_ITS | Encounter Summary ---
Author Organization [facility] Address [address] [place] [address] Care Team Providers Care Condenser Tube Tender Name Role Phone Areli Gurrola MD Primary Care Provider Encounter Details Date Type Department Care Team (Late st Contact Info) Description 06/24/2003 Outpatient Historical [facility] Imaging Services [place] [address] [place] [address] Shayy Landry MD [address] [address] Social History Tobacco Use Types Packs/Day Years Used Date Smoking Tobacco: Never Assessed Comments Unknown Sex and Gender Information Value Date Recorded Sex Assigned at Not on file Legal Sex Female 3:40 AM ANTIQUE FURNITURE RESTORER Gender Identity Not on file Sexual Orientation Not on file documented as of this encounter Plan of Treatment Not on file documented as of this encounter Visit Diagnoses Not on filedocumented in this encounter Additional Health Concerns Infection Onset Date Last Indicated Resolved Time R/O COVID-19 01/31/2020 01/31/2020 02/02/2020 10:3 2 AM CDT documented as of this encounter Care Teams Condenser Tube Tender Relationship Specialty Start Date End Date Areli Gurrola MD [address] [facility] [place] [address] PCP - General Specialist 08/12/19 documented as of this encounter
--- OUTSIDE RECORDS SUMMARY | 2025-03-08 01:25 | XMS_ITS | Encounter Summary ---
Author Organization [facility] Address [address] [place] [address] Care Team Providers Care Embroiderer Name Role Phone Areli Gurrola MD Primary Care Provider Encounter Details Date Type Department Care Team (Latest Contact Info) Description 10/16/2002 [facility] [address] [place] [address] Gordon Cabral MD NO ADDRESS ON FILE PREOP EXAM OTHER SPECIFIED (Primary Dx); Excessive menstruation Social History Tobacco Use Types Packs/Day Years Used Date Smoking Tobacco: Never Assessed Comments Unknown Sex and Gender Information Value Date Recorded Sex Assigned at Not on file Legal Sex Female 3:40 AM PRESS OPERATOR HELPER Gender Identity Not on [...] documented as of this encounter Care Teams Embroiderer Relationship Specialty Start Date End Date Areli Gurrola MD [address] [facility] [facility] [place] [address] PCP - General Specialist 08/12/19 documented as of this encounter
--- OUTSIDE RECORDS SUMMARY | 2025-03-08 01:25 | XMS_ITS | Encounter Summary ---
Author Organization [facility] Address [address] [place] [address] Care Team Providers Care Homebirth Midwife Name Role Phone Areli Gurrola MD Primary Care Provider Encounter Details Date Type Department Care Team (Latest Contact Info) Description 09/09/[address] [facility] [address] [place] [address] Trell York MD [address] [place] [phone] CERVICALGIA (Primary Dx) Social History Tobacco Use Types Packs/Day Years Used Date Smoking Tobacco: Never Assessed Comments Unknown Sex and Gender Information Value Date Recorded Sex Assigned at Not on file Legal Sex Female 3:40 AM SALES AND SERVICE AGENT Gender Identity Not on file Sexual Orientation Not on file documented as of this encounter Plan of Treatment Not on file documented as of this encounter Visit Diagnoses Diagnosis Cervicalgia- Primary documented in this encounter Additional Health Concerns Infection Onset Date Last Indicated Resolved Time R/O COVID-19 01/31/2020 01/31/2020 02/02/2020 10:3 2 AM CDT documented as of this encounter Care Teams Homebirth Midwife Relationship Specialty Start Date End Date Areli Gurrola MD [address] [facility] [place] [address] PCP - General Specialist 08/12/19 documented as of this encounter
--- OUTSIDE RECORDS SUMMARY | 2025-03-08 01:25 | XMS_ITS | Patient Health Record ---
Author Organization [facility] Address [address] [place] [address] Care Team Providers Care Piggyback Clerk Name Role Phone Joseph Lewis MD Primary Care Provider Zane Joiner Unavailable [phone] ELROY BOOTHE Unavailable Unavailable Reason For Referral Reason eval and treat Diagnosis 1 Radiculopathy, lumba r region (M54.16) Referring Provider First Name Aida Referring Provider Last Name Carlton Referring Provider Speciality Physician Shower Screen Installer [facility] Referred Provider Tam Fairchild Referred Address [address] [facility],[address], Referred Provider Specialty Intervention al Pain Medicine General Notes Mirta Wang 12/01 09:16:03 AM CDT > double check insurance, there is no insurance on the referral, Jennifer Dennison 12/04/2024 09:19:55 AM CDT > atc pt, # says mailbox is fullJesi Twyla A 12/22/2024 01:36:52 PM CDT > atc pt, # says mailbox is full, Roger So 01/28/2025 01:32:13 PM CDT > phone number has been changed or disconnected Referral Priority Routine Medications Medication SIG (Take, [...] drug interaction check* Fluticasone Furoate 27.5mcg/1spray Nasal [place] Use 2 spray(s) in each nostril daily 05/28/2008 Active Immunizations Vaccine Route Administration Date Status Comme nts Influenza (whole), CPT 65015 Inactive Unknown 10/15/2018 Administered Social History Social [...] Problem Status W/U Status Risk Notes Problem Information temporarily unavailable Alcohol abuse with alcohol-induced mood disorder (F10.14) Active confirmed Problem Information temporarily unavailable Major depressive disorder, 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.2) Active confirmed Problem Information temporarily unavailable Major depressive disorder, recurrent, 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) Active confirmed Problem Information temporarily unavailable Adjustment disorder with mixed disturbance of emotions and conduct (F43.25) Active confirmed Problem Information temporarily unavailable Borderline personality disorder (F60.3) Active confirmed Problem Information temporarily unavailable Radiculopathy, lumbar region (M54.16) Active confirmed Problem Information temporarily unavailable Personal history of other mental and behavioral disorders (Z86.59) Active confirmed Problem Information temporarily unavailable Alcohol abuse (F10.10) Active confirmed Problem Information temporarily unavailable Depression, major (F32.9) Active confirmed Problem Information temporarily unavailable 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 confirmed Problem Information temporarily unavailable Chronic pain (G89.29) Active confirmed Problem Information temporarily unavailable Polysubstance abuse (F19.10) Active confirmed Problem Information temporarily unavailable Cannabis abuse (F12.10) Active confirmed Problem Information temporarily unavailable Low back pain (724.2) 05/28/19 09 Active confirmed [id number] 11- Problem Information temporarily unavailable Fibromyalgia (729.1) 05/28/19 09 Problem resolved confirmed [id number] 11- Plan Of Treatment No Information Insurance Providers Payer Name Payer Address Payer Phone Subscriber Number Group Number Insured Name Patient Relationship to Insured Coverage Start Date Coverage End Date [facility] [address] [address] [place] [address] [id number] Kay Gamboa Self - patient is the insured [place] Medicaid [address] [place] [address] [id number] Kay Gamboa Self - patient is the insured Medical (General) History Surgical History Surgery Date(Month/Year) Appendectomy Biopsy of Bone Marrow Carpal tunnel surgery Gallbladder surgery Hysterectomy Laminectomy Tonsillectomy
--- OUTSIDE RECORDS SUMMARY | 2025-03-08 01:25 | XMS_ITS | Encounter Summary ---
Author Organization [facility] Address [address] [place] [address] Care Team Providers Care Supervisor Shop Name Role Phone Areli Gurrola MD Primary Care Provider Encounter Details Date Type Department Care Team (Late st Contact Info) Description 03/16/1999 Outpatient Historical HIS [facility] Social History Tobacco Use Types Packs/Day Years Used Date Smoking Tobacco: Never Assessed Comments Unknown Sex and Gender Information Value Date Recorded Sex Assigned at Not on file Legal Sex Female 3:40 AM MERGERS AND ACQUISITIONS BANKER Gender Identity Not on file Sexual Orientation Not on file documented as of this encounter Plan of Treatment Not on file documented as of this encounter Visit Diagnoses Not on filedocumented in this encounter Additional Health Concerns Infection Onset Date Last Indicated Resolved Time R/O COVID-19 01/31/2020 01/31/2020 02/02/2020 10:3 2 AM CDT documented as of this encounter Care Teams Supervisor Shop Relationship Specialty Start Date End Date Areli Gurrola MD [address] [place] [address] PCP - General Specialist 08/12/19 documented as of this encounter
--- OUTSIDE RECORDS SUMMARY | 2025-03-08 01:25 | XMS_ITS | Encounter Summary ---
Author Organization [facility] Address [address] [place] [address] Care Team Providers Care Artist Consultant Name Role Phone Areli Gurrola MD Primary Care Provider Encounter Details Date Type Department Care Team (Late st Contact Info) Description 03/25/1999 Outpatient Historical HIS [facility] Social History Tobacco Use Types Packs/Day Years Used Date Smoking Tobacco: Never Assessed Comments Unknown Sex and Gender Information Value Date Recorded Sex Assigned at Not on file Legal Sex Female 3:40 AM CHIROPRACTOR SOLE PRACTITIONER Gender Identity Not on file Sexual Orientation Not on file documented as of this encounter Plan of Treatment Not on file documented as of this encounter Visit Diagnoses Not on filedocumented in this encounter Additional Health Concerns Infection Onset Date Last Indicated Resolved Time R/O COVID-19 01/31/2020 01/31/2020 02/02/2020 10:3 2 AM CDT documented as of this encounter Care Teams Artist Consultant Relationship Specialty Start Date End Date Areli Gurrola MD [address] [place] [address] PCP - General Specialist 08/12/19 documented as of this encounter
--- OUTSIDE RECORDS SUMMARY | 2025-03-08 01:25 | XMS_ITS | Encounter Summary ---
Author Organization [facility] Address [address] [place] [address] Care Team Providers Care Ticket Dispenser Changer Name Role Phone Areli Gurrola MD Primary Care Provider Encounter Details Date Type Department Care Team (Late st Contact Info) Description 03/11/1999 Outpatient Historical HIS [facility] Social History Tobacco Use Types Packs/Day Years Used Date Smoking Tobacco: Never Assessed Comments Unknown Sex and Gender Information Value Date Recorded Sex Assigned at Not on file Legal Sex Female 3:40 AM EDGE TRIMMER Gender Identity Not on file Sexual Orientation Not on file documented as of this encounter Plan of Treatment Not on file documented as of this encounter Visit Diagnoses Not on filedocumented in this encounter Additional Health Concerns Infection Onset Date Last Indicated Resolved Time R/O COVID-19 01/31/2020 01/31/2020 02/02/2020 10:3 2 AM CDT documented as of this encounter Care Teams Ticket Dispenser Changer Relationship Specialty Start Date End Date Areli Gurrola MD [address] [place] [address] PCP - General Specialist 08/12/19 documented as of this encounter
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
--- OUTSIDE RECORDS SUMMARY | 2025-03-08 01:25 | XMS_ITS | Encounter Summary ---
Author Organization [facility] Address [address] [place] [address] Care Team Providers Care Digital Archivist Name Role Phone Areli Gurrola MD Primary Care Provider Encounter Details Date Type Department Care Team (Latest Contact Info) Description 03/23/1999 Outpatient [facility] [place] [address] [place] [address] [place], Gibran Lynn MD [address] [place] [address] Unspecified viral infection, in conditions classified elsewhere and of unspecified site (Primary Dx); Sprain and strain of other specified sites of shoulder and upper arm; Tobacco use disorder Social History Tobacco Use Types Packs/Day Years Used Date Smoking Tobacco: Never Assessed Comments Unknown Sex and Gender Information Value Date Recorded Sex Assigned at Not on file Legal Sex Female 3:40 AM MEDIATION COMMISSIONER Gender Identity Not on file Sexual [...] as of this encounter Care Teams Digital Archivist Relationship Specialty Start Date End Date Areli Gurrola MD [address] [place] [address] PCP - General Specialist 08/12/19 documented as of this encounter
--- OUTSIDE RECORDS SUMMARY | 2025-03-08 01:25 | XMS_ITS | Encounter Summary ---
Author Organization [facility] Address [address] [place] [address] Care Team Providers Care Reporting Process Consultant Name Role Phone Areli Gurrola MD Primary Care Provider Encounter Details Date Type Department Care Team (Latest Contact Info) Description 10/09/2002 Outpatient Historical [facility] [place] [address] [place] [address] Gordon Cabral MD NO ADDRESS ON FILE Excessive menstruation (Primary Dx) Social History Tobacco Use Types Packs/Day Years Used Date Smoking Tobacco: Never Assessed Comments Unknown Sex and Gender Information Value Date Recorded Sex Assigned at Not on file Legal Sex Female 3:40 AM EXPERIMENTAL ASSEMBLER Gender Identity Not on file Sexual [...] documented as of this encounter Care Teams Reporting Process Consultant Relationship Specialty Start Date End Date Areli Gurrola MD [address] [place] [address] PCP - General Specialist 08/12/19 documented as of this encounter
--- OUTSIDE RECORDS SUMMARY | 2025-03-08 01:25 | XMS_ITS | Encounter Summary ---
Author Organization [facility] Address [address] [place] [address] Care Team Providers Care Cuprous Chloride Helper Name Role Phone Areli Gurrola MD Primary Care Provider Encounter Details Date Type Department Care Team (Latest Contact Info) Description 10/14/2002 Outpatient Historical [facility] [address] [place] [address] Trell York MD [address] [place] [phone] ACUTE URI NOS (Primary Dx); COUGH Social History Tobacco Use Types Packs/Day Years Used Date Smoking Tobacco: Never Assessed Comments Unknown Sex and Gender Information Value Date Recorded Sex Assigned at Not on file Legal Sex Female 3:40 AM COIL BINDER Gender Identity Not on file Sexual Orientation [...] documented as of this encounter Care Teams Cuprous Chloride Helper Relationship Specialty Start Date End Date Areli Gurrola MD [address] [facility] [place] [address] PCP - General Specialist 08/12/19 documented as of this encounter
--- OUTSIDE RECORDS SUMMARY | 2025-03-08 01:25 | XMS_ITS | Encounter Summary ---
Author Organization [facility] Address [address] [place] [address] Care Team Providers Care Machine Molder Squeeze Name Role Phone Areli Gurrola MD Primary Care Provider Encounter Details Date Type Department Care Team (Late st Contact Info) Description 04/05/1999 Outpatient Historical HIS [facility] Social History Tobacco Use Types Packs/Day Years Used Date Smoking Tobacco: Never Assessed Comments Unknown Sex and Gender Information Value Date Recorded Sex Assigned at Not on file Legal Sex Female 3:40 AM MACHINE PULLER AND LASTER Gender Identity Not on file Sexual Orientation Not on file documented as of this encounter Plan of Treatment Not on file documented as of this encounter Visit Diagnoses Not on filedocumented in this encounter Additional Health Concerns Infection Onset Date Last Indicated Resolved Time R/O COVID-19 01/31/2020 01/31/2020 02/02/2020 10:3 2 AM CDT documented as of this encounter Care Teams Machine Molder Squeeze Relationship Specialty Start Date End Date Areli Gurrola MD [address] [place] [address] PCP - General Specialist 08/12/19 documented as of this encounter
--- OUTSIDE RECORDS SUMMARY | 2025-03-08 01:25 | XMS_ITS | Encounter Summary ---
Author Organization [facility] Address [address] [place] [address] Care Team Providers Care Reclamation Furnace Operator Name Role Phone Areli Gurrola MD Primary Care Provider Encounter Details Date Type Department Care Team (Latest Contact Info) Description 10/11/[address] [facility] [address] [place] [address] Trell York MD [address] [place] [phone] Dysthymic Disorder (Primary Dx); Lumbago Social History Tobacco Use Types Packs/Day Years Used Date Smoking Tobacco: Never Assessed Comments Unknown Sex and Gender Information Value Date Recorded Sex Assigned at Not on file Legal Sex Female 3:40 AM REGIONAL EDUCATION COORDINATOR Gender Identity Not on file Sexual [...] documented as of this encounter Care Teams Reclamation Furnace Operator Relationship Specialty Start Date End Date Areli Gurrola MD [address] [facility] [place] [address] PCP - General Specialist 08/12/19 documented as of this encounter
--- OUTSIDE RECORDS SUMMARY | 2025-03-08 01:25 | XMS_ITS | Encounter Summary ---
Author Organization [facility] Address [address] [place] [address] Care Team Providers Care Active Directory Specialist Name Role Phone Areli Gurrola MD Primary Care Provider Encounter Details Date Type Department Care Team (Latest Contact Info) Description 10/03/2002 [facility] [address] [place] [address] Gordon Cabral MD NO ADDRESS ON FILE MENSTRUAL DISORDER NEC (Primary Dx) Social History Tobacco Use Types Packs/Day Years Used Date Smoking Tobacco: Never Assessed Comments Unknown Sex and Gender Information Value Date Recorded Sex Assigned at Not on file Legal Sex Female 3:40 AM INVESTOR RELATIONS SPECIALIST Gender Identity Not on file Sexual [...] documented as of this encounter Care Teams Active Directory Specialist Relationship Specialty Start Date End Date Areli Gurrola MD [address] [facility] [place] [address] PCP - General Specialist 08/12/19 documented as of this encounter
--- OUTSIDE RECORDS SUMMARY | 2025-03-08 01:25 | XMS_ITS | Encounter Summary ---
Author Organization [facility] Address [address] [place] [address] Care Team Providers Care Upholstery Cleaner Name Role Phone Areli Gurrola MD Primary Care Provider Encounter Details Date Type Department Care Team (Latest Contact Info) Description 06/04/1998 Outpatient Historical HIS [facility] Charli Perez MD NO ADDRESS ON FILE Open wound of forehead (Primary Dx) Social History Tobacco Use Types Packs/Day Years Used Date Smoking Tobacco: Never Assessed Comments Unknown Sex and Gender Information Value Date Recorded Sex Assigned at Not on file Legal Sex Female 3:40 AM TRAFFIC CHIEF Gender Identity Not on file Sexual [...] documented as of this encounter Care Teams Upholstery Cleaner Relationship Specialty Start Date End Date Areli Gurrola MD [address] [place] [address] PCP - General Specialist 08/12/19 documented as of this encounter
--- OUTSIDE RECORDS SUMMARY | 2025-03-08 01:25 | XMS_ITS | Encounter Summary ---
Author Organization [facility] Address [address] [place] [address] Care Team Providers Care Jewelry Sorter Name Role Phone Areli Gurrola MD Primary Care Provider Encounter Details Date Type Department Care Team (Late st Contact Info) Description 03/25/1999 Outpatient Historical HIS [facility] Social History Tobacco Use Types Packs/Day Years Used Date Smoking Tobacco: Never Assessed Comments Unknown Sex and Gender Information Value Date Recorded Sex Assigned at Not on file Legal Sex Female 3:40 AM DOUGH CATCHER Gender Identity Not on file Sexual Orientation Not on file documented as of this encounter Plan of Treatment Not on file documented as of this encounter Visit Diagnoses Not on filedocumented in this encounter Additional Health Concerns Infection Onset Date Last Indicated Resolved Time R/O COVID-19 01/31/2020 01/31/2020 02/02/2020 10:3 2 AM CDT documented as of this encounter Care Teams Jewelry Sorter Relationship Specialty Start Date End Date Areli Gurrola MD [address] [place] [address] PCP - General Specialist 08/12/19 documented as of this encounter
--- OUTSIDE RECORDS SUMMARY | 2025-03-08 01:25 | XMS_ITS | Encounter Summary ---
Author Organization [facility] Address [address] [place] [address] Care Team Providers Care Mandarin Speaking Nanny Name Role Phone Areli Gurrola MD Primary Care Provider Encounter Details Date Type Department Care Team (Latest Contact Info) Description 09/14/2004 [facility]patient [facility] [address] [place] [address] Trell York MD [address] [place] [phone] DYSTHYMIC DISORDER (Primary Dx); CERVICALGIA; LUMBAGO Social History Tobacco Use Types Packs/Day Years Used Date Smoking Tobacco: Never Assessed Comments Unknown Sex and Gender Information Value Date Recorded Sex Assigned at Not on file Legal Sex Female 3:40 AM MANUFACTURING SOFTWARE ENGINEER Gender Identity Not on file Sexual [...] documented as of this encounter Care Teams Mandarin Speaking Nanny Relationship Specialty Start Date End Date Areli Gurrola MD [address] [facility] [place] [address] PCP - General Specialist 08/12/19 documented as of this encounter
--- OUTSIDE RECORDS SUMMARY | 2025-03-08 01:25 | XMS_ITS | Encounter Summary ---
Author Organization [facility] Address [address] [place] [address] Care Team Providers Care Sail Cutter Name Role Phone Areli Gurrola MD Primary Care Provider Encounter Details Date Type Department Care Team (Late st Contact Info) Description 03/30/1999 Outpatient Historical HIS [facility] Social History Tobacco Use Types Packs/Day Years Used Date Smoking Tobacco: Never Assessed Comments Unknown Sex and Gender Information Value Date Recorded Sex Assigned at Not on file Legal Sex Female 3:40 AM AUTOMATIC GRINDER OPERATOR Gender Identity Not on file Sexual Orientation Not on file documented as of this encounter Plan of Treatment Not on file documented as of this encounter Visit Diagnoses Not on filedocumented in this encounter Additional Health Concerns Infection Onset Date Last Indicated Resolved Time R/O COVID-19 01/31/2020 01/31/2020 02/02/2020 10:3 2 AM CDT documented as of this encounter Care Teams Sail Cutter Relationship Specialty Start Date End Date Areli Gurrola MD [address] [place] [address] PCP - General Specialist 08/12/19 documented as of this encounter
--- OUTSIDE RECORDS SUMMARY | 2025-03-08 01:26 | XMS_ITS | Encounter Summary ---
Author Organization [facility] Address [address] [place] [address] Care Team Providers Care Advertising Account Executive Name Role Phone Areli Gurrola MD Primary Care Provider Encounter Details Date Type Department Care Team (Latest Contact Info) Description 10/01/2002 Outpatient Historical [facility] [address] [place] [address] Trell York MD [address] [place] [phone] ACUTE SINUSITIS NOS (Primary Dx) Social History Tobacco Use Types Packs/Day Years Used Date Smoking Tobacco: Never Assessed Comments Unknown Sex and Gender Information Value Date Recorded Sex Assigned at Not on file Legal Sex Female 3:40 AM LABOR ARBITRATOR Gender Identity Not on file Sexual Orientation Not on file documented as of this encounter Plan of Treatment Not on file documented as of this encounter Visit Diagnoses Diagnosis Acute sinusitis, unspecified- Primary documented in this encounter Additional Health Concerns Infection Onset Date Last Indicated Resolved Time R/O COVID-19 01/31/2020 01/31/2020 02/02/2020 10:3 2 AM CDT documented as of this encounter Care Teams Advertising Account Executive Relationship Specialty Start Date End Date Areli Gurrola MD [address] [facility] [place] [address] PCP - General Specialist 08/12/19 documented as of this encounter
--- OUTSIDE RECORDS SUMMARY | 2025-03-08 01:26 | XMS_ITS | Encounter Summary ---
Author Organization [facility] Address [address] [place] [address] Care Team Providers Care Heel Seat Sander Name Role Phone Areli Gurrola MD Primary Care Provider Encounter Details Date Type Department Care Team (Latest Contact Info) Description 12/18/2002 [facility]patient [facility] [address] [place] [address] Gordon Cabral MD NO ADDRESS ON FILE PREOP EXAM OTHER SPECIFIED (Primary Dx); Excessive menstruation; FEMALE GENITAL SYMPTOMS NOS Social History Tobacco Use Types Packs/Day Years Used Date Smoking Tobacco: Never Assessed Comments Unknown Sex and Gender Information Value Date Recorded Sex Assigned at Not on file Legal Sex Female 3:40 AM FAMILY AND CONSUMER SCIENCES PROFESSOR Gender Identity Not on file Sexual [...] as of this encounter Care Teams Heel Seat Sander Relationship Specialty Start Date End Date Areli Gurrola MD [address] [place] [address] PCP - General Specialist 08/12/19 documented as of this encounter
--- OUTSIDE RECORDS SUMMARY | 2025-03-08 01:26 | XMS_ITS | Encounter Summary ---
Author Organization [facility] Address [address] [place] [address] Care Team Providers Care Computer Systems Software Engineer Name Role Phone Areli Gurrola MD Primary Care Provider Encounter Details Date Type Department Care Team (Latest Contact Info) Description 05/11/2003 Outpatient Historical [facility] [address] [place] [address] Trell York MD [address] [place] [phone] CERVICALGIA (Primary Dx) Social History Tobacco Use Types Packs/Day Years Used Date Smoking Tobacco: Never Assessed Comments Unknown Sex and Gender Information Value Date Recorded Sex Assigned at Not on file Legal Sex Female 3:40 AM BINGO ATTENDANT Gender Identity Not on file Sexual [...] of this encounter Care Teams Computer Systems Software Engineer Relationship Specialty Start Date End Date Areli Gurrola MD [address] [facility] [place] [address] PCP - General Specialist 08/12/19 documented as of this encounter
--- OUTSIDE RECORDS SUMMARY | 2025-03-08 01:26 | XMS_ITS | Encounter Summary ---
Author Organization [facility] Address [address] [place] [address] Care Team Providers Care Admissions Advisor Name Role Phone Areli Gurrola MD Primary Care Provider Encounter Details Date Type Department Care Team (Latest Contact Info) Description 04/21/2003 Outpatient [facility] [address] [place] [address] Gordon Cabral MD NO ADDRESS ON FILE URIN TRACT INFECTION NOS (Primary Dx) Social History Tobacco Use Types Packs/Day Years Used Date Smoking Tobacco: Never Assessed Comments Unknown Sex and Gender Information Value Date Recorded Sex Assigned at Not on file Legal Sex Female 3:40 AM CONTRACT DESIGNER Gender Identity Not on file Sexual [...] as of this encounter Care Teams Admissions Advisor Relationship Specialty Start Date End Date Areli Gurrola MD [address] [facility] [place] [address] PCP - General Specialist 08/12/19 documented as of this encounter
--- OUTSIDE RECORDS SUMMARY | 2025-03-08 01:26 | XMS_ITS | Encounter Summary ---
Author Organization [facility] Address [address] [place] [address] Care Team Providers Care Pinion And Wheel Truer Name Role Phone Areli Gurrola MD Primary Care Provider Encounter Details Date Type Department Care Team (Latest Contact Info) Description 03/20/2002 Outpatient Historical [facility] [address] [place] [address] Trell York MD [address] [place] [phone] ESOPHAGITIS, UNSPECIFIED (Primary Dx); CERVICALGIA; UNSPEC CONSTIPATION Social History Tobacco Use Types Packs/Day Years Used Date Smoking Tobacco: Never Assessed Comments Unknown Sex and Gender Information Value Date Recorded Sex Assigned at Not on file Legal Sex Female 3:40 AM TUTOR Gender Identity Not on file Sexual [...] documented as of this encounter Care Teams Pinion And Wheel Truer Relationship Specialty Start Date End Date Areli Gurrola MD [address] [facility] [place] [address] PCP - General Specialist 08/12/19 documented as of this encounter
--- OUTSIDE RECORDS SUMMARY | 2025-03-08 01:26 | XMS_ITS | Encounter Summary ---
Author Organization [facility] Address [address] [place] [address] Care Team Providers Care Loan Originator Name Role Phone Areli Gurrola MD Primary Care Provider Encounter Details Date Type Department Care Team (Latest Contact Info) Description 07/09/2002 Outpatient Historical [facility] [address] [place] [address] Trell York MD [address] [place] [phone] OTHER MALAISE AND FATIGUE (Primary Dx); CERVICALGIA Social History Tobacco Use Types Packs/Day Years Used Date Smoking Tobacco: Never Assessed Comments Unknown Sex and Gender Information Value Date Recorded Sex Assigned at Not on file Legal Sex Female 3:40 AM DRYING OVEN ATTENDANT Gender Identity Not on file Sexual [...] documented as of this encounter Care Teams Loan Originator Relationship Specialty Start Date End Date Areli Gurrola MD [address] [facility] [place] [address] PCP - General Specialist 08/12/19 documented as of this encounter
--- OUTSIDE RECORDS SUMMARY | 2025-03-08 01:26 | XMS_ITS | Encounter Summary ---
Author Organization [facility] Address [address] [place] [address] Care Team Providers Care Director Communications Name Role Phone Areli Gurrola MD Primary Care Provider Encounter Details Date Type Department Care Team (Latest Contact Info) Description 01/09/2002 Outpatient Historical [facility] [address] [place] [address] Trell York MD [address] [place] [phone] HEADACHE (Primary Dx); CERVICALGIA Social History Tobacco Use Types Packs/Day Years Used Date Smoking Tobacco: Never Assessed Comments Unknown Sex and Gender Information Value Date Recorded Sex Assigned at Not on file Legal Sex Female 3:40 AM VEST TAILOR Gender Identity Not on file Sexual Orientation [...] Areli Gurrola MD [address] [place] [address] PCP - General Specialist 08/12/19 documented as of this encounter
--- OUTSIDE RECORDS SUMMARY | 2025-03-08 01:26 | XMS_ITS | Encounter Summary ---
Author Organization [facility] Address [address] [place] [address] Care Team Providers Care Rn New Graduate Name Role Phone Areli Gurrola MD Primary Care Provider Encounter Details Date Type Department Care Team (Late st Contact Info) Description 06/27/2001 Outpatient Historical [facility] Gen Spec Surg [address] [address] Renan Martinez MD [address] [place] [address] CHOLELITHIASIS NOS (Primary Dx); SURGERY FOLLOWUP, UNSPEC Social History Tobacco Use Types Packs/Day Years Used Date Smoking Tobacco: Never Assessed Comments Unknown Sex and Gender Information Value Date Recorded Sex Assigned at Not on file Legal Sex Female 3:[address] Gender Identity Not on file Sexual [...] Gurrola MD [address] [facility] [place] [address] PCP - General Specialist 08/12/19 documented as of this encounter
--- OUTSIDE RECORDS SUMMARY | 2025-03-08 01:26 | XMS_ITS | Encounter Summary ---
Author Organization [facility] Address [address] [place] [address] Care Team Providers Care Physician Assistant Name Role Phone Areli Gurrola MD Primary Care Provider Encounter Details Date Type Department Care Team (Latest Contact Info) Description 04/10/2002 Outpatient Historical [facility] Endoscopy Andrés [address] [facility] [address] [place] [address] Gildardo Ace MD [address] [place] [phone] ABDOMINAL PAIN EPIGASTRIC (Primary Dx) Social History Tobacco Use Types Packs/Day Years Used Date Smoking Tobacco: Never Assessed Comments Unknown Sex and Gender Information Value Date Recorded Sex Assigned at Not on file Legal Sex Female 3:40 AM IT SUPPORT TECHNICIAN Gender Identity Not on file Sexual [...] documented as of this encounter Care Teams Physician Assistant Relationship Specialty Start Date End Date Areli Gurrola MD [address] [place] [address] PCP - General Specialist 08/12/19 documented as of this encounter
--- OUTSIDE RECORDS SUMMARY | 2025-03-08 01:26 | XMS_ITS | Encounter Summary ---
Author Organization [facility] Address [address] [place] [address] Care Team Providers Care Bicycle Technician Name Role Phone Areli Gurrola MD Primary Care Provider Encounter Details Date Type Department Care Team (Late st Contact Info) Description 10/30/2002 Emergency [facility] Emergency Department [address] [place] [address] Tomás Jade MD NO ADDRESS ON FILE FEMALE GENITAL SYMPTOMS NOS (Primary Dx) Social History Tobacco Use Types Packs/Day Years Used Date Smoking Tobacco: Never Assessed Comments Unknown Sex and Gender Information Value Date Recorded Sex Assigned at Not on file Legal Sex Female 3:40 AM REPRODUCTION SPECIALIST Gender Identity Not on file Sexual [...] documented as of this encounter Care Teams Bicycle Technician Relationship Specialty Start Date End Date Areli Gurrola MD [address] [place] [address] PCP - General Specialist 08/12/19 documented as of this encounter
--- OUTSIDE RECORDS SUMMARY | 2025-03-08 01:26 | XMS_ITS | Encounter Summary ---
Author Organization [facility] Address [address] [place] [address] Care Team Providers Care Adoption Counselor Name Role Phone Areli Gurrola MD Primary Care Provider Encounter Details Date Type Department Care Team (Latest Contact Info) Description 11/20/2001 Outpatient Historical [facility] [address] [place] [address] Trell York MD [address] [place] [phone] LUMBAGO (Primary Dx); SEBACEOUS CYST Social History Tobacco Use Types Packs/Day Years Used Date Smoking Tobacco: Never Assessed Comments Unknown Sex and Gender Information Value Date Recorded Sex Assigned at Not on file Legal Sex Female 3:40 AM TESTER OPERATOR HELPER Gender Identity Not on file [...] documented as of this encounter Care Teams Adoption Counselor Relationship Specialty Start Date End Date Areli Gurrola MD [address] [place] [phone] PCP - General Specialist 08/12/19 documented as of this encounter
--- OUTSIDE RECORDS SUMMARY | 2025-03-08 01:26 | XMS_ITS | Encounter Summary ---
Author Organization [facility] Address [address] [place] [address] Care Team Providers Care Conservation Worker Name Role Phone Unavailable Primary Care Provider Unavailabl e Reason for Visit * Reason Onset Date Comments Medical Records 03/03/2025 Medical Records Request faxed to external provider for most recent A1C test results and date Encounter Details Date Type Department Care Team (Late st Contact Info) Description 03/03/2025 Telephone [facility] Ambulatory Quality [address] [place] [address] Addi Mosqueda MD [address] [place] [phone] Medical Records (Medical Records Request faxed to external provider for most recent A1C test results and date) Social History Tobacco Use Types Packs/Day Years [...] on file Legal Sex Female 6:21 AM GRAVEDIGGER Gender Identity Not on file Sexual Orientation Not on file documented as of this encounter Miscellaneous Notes * Telephone Encounter - LexusAshley - 03/03/2025 4:14 PM CST Reason for outreach-performed for medical record retrieval for care gap closure. Fax sent to provider for Medical Records to be sent to [facility] Contact Name: [facility] Contact Phone Number: . Requested results for A1c Comments: [phone] EDIGGER * Telephone Encounter - Ashley Alberts - 03/03/2025 4:13 PM CST Reason for outreach-performed for medical record retrieval for care gap closure. Fax sent to provider for Medical Records to be sent to [facility] EDIGGER documented in this encounter Plan of Treatment Upcoming Encounters Date Type Department Care Team (Late st Contact Info) Description 06/16/2025 8:30 AM CDT Office Visit [facility] [place] [address] [place] [address] Maritza Fournier PA-C [address] [place] [address] documented as of this encounter Visit Diagnoses Not on filedocumented in this encounter
--- OUTSIDE RECORDS SUMMARY | 2025-03-08 01:26 | XMS_ITS | Encounter Summary ---
Author Organization [facility] Address [address] [facility] Attn: [place] [address] Care Team Providers Care Virtual Recruiter Name Role Phone Areli Gurrola MD Primary Care Provider Encounter Details Date Type Department Care Team (Late st Contact Info) Description 07/30/2001 Outpatient Historical [place], Trell Pascual MD [address] [place] [phone] Social History Tobacco Use Types Packs/Day Years Used Date Smoking Tobacco: Never Assessed Comments Unknown Sex and Gender Information Value Date Recorded Sex Assigned at Not on file Legal Sex Female 3:40 AM WINDOW GLAZIER HELPER Gender Identity Not on file Sexual Orientation Not on file documented as of this encounter Plan of Treatment Not on file documented as of this encounter Visit Diagnoses Not on filedocumented in this encounter Additional Health Concerns Infection Onset Date Last Indicated Resolved Time R/O COVID-19 01/31/2020 01/31/2020 02/02/2020 10:3 2 AM CDT documented as of this encounter Care Teams Virtual Recruiter Relationship Specialty Start Date End Date Areli Gurrola MD [address] [place] [address] PCP - General Specialist 08/12/19 documented as of this encounter
--- OUTSIDE RECORDS SUMMARY | 2025-03-08 01:26 | XMS_ITS | Encounter Summary ---
Author Organization [facility] Address [address] [place] [address] Care Team Providers Care Drawer Upfitter Name Role Phone Areli Gurrola MD Primary Care Provider Encounter Details Date Type Department Care Team (Latest Contact Info) Description 10/21/2001 Outpatient Historical [facility] [address] [place] [address] Trell York MD [address] [place] [phone] NEUROTIC DEPRESSION (Primary Dx); LUMBAGO; ACUTE LARYNGOTRACH W OBSTR Social History Tobacco Use Types Packs/Day Years Used Date Smoking Tobacco: Never Assessed Comments Unknown Sex and Gender Information Value Date Recorded Sex Assigned at Not on file Legal Sex Female 3:40 AM MARKETING AND PUBLIC RELATIONS MANAGER Gender Identity Not on [...] documented as of this encounter Care Teams Drawer Upfitter Relationship Specialty Start Date End Date Areli Gurrola MD [address] [facility] [place] [address] PCP - General Specialist 08/12/19 documented as of this encounter
--- OUTSIDE RECORDS SUMMARY | 2025-03-08 01:26 | XMS_ITS | Encounter Summary ---
Author Organization [facility] Address [address] [place] [address] Care Team Providers Care Accounts Payable Associate Name Role Phone Areli Gurrola MD Primary Care Provider Encounter Details Date Type Department Care Team (Late st Contact Info) Description 04/14/2002 Outpatient Historical [facility] [address] [place] [address] Miguelangel Mas, NO ADDRESS ON FILE SPRAIN OF ANKLE NOS (Primary Dx) Social History Tobacco Use Types Packs/Day Years Used Date Smoking Tobacco: Never Assessed Comments Unknown Sex and Gender Information Value Date Recorded Sex Assigned at Not on file Legal Sex Female 3:40 AM RATE MANAGER Gender Identity Not on file Sexual [...] documented as of this encounter Care Teams Accounts Payable Associate Relationship Specialty Start Date End Date Areli Gurrola MD [address] [facility] [facility] [place] [address] PCP - General Specialist 08/12/19 documented as of this encounter
--- OUTSIDE RECORDS SUMMARY | 2025-03-08 01:26 | XMS_ITS | Encounter Summary ---
Author Organization [facility] Address [address] [place] [address] Care Team Providers Care Internal Control Specialist Name Role Phone Areli Gurrola MD Primary Care Provider Encounter Details Date Type Department Care Team (Latest Contact Info) Description 08/25/2002 Outpatient Historical [facility] [address] [place] [address] Trell York MD [address] [place] [phone] INSOMNIA NEC (Primary Dx); OTHER MALAISE AND FATIGUE; NEUROTIC DEPRESSION; CERVICALGIA Social History Tobacco Use Types Packs/Day Years Used Date Smoking Tobacco: Never Assessed Comments Unknown Sex and Gender Information Value Date Recorded Sex Assigned at Not on file Legal Sex Female 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
--- OUTSIDE RECORDS SUMMARY | 2025-03-08 01:26 | XMS_ITS | Encounter Summary ---
Author Organization [facility] Address [address] [place] [address] Care Team Providers Care Furnace Erector Name Role Phone Areli Gurrola MD Primary Care Provider Encounter Details Date Type Department Care Team (Latest Contact Info) Description 08/20/2001 Outpatient Historical [facility] [address] [place] [address] Trell York MD [address] [place] [phone] ACUTE PHARYNGITIS (Primary Dx) Social History Tobacco Use Types Packs/Day Years Used Date Smoking Tobacco: Never Assessed Comments Unknown Sex and Gender Information Value Date Recorded Sex Assigned at Not on file Legal Sex Female 3:40 AM ADVISORY INTERN Gender Identity Not on file Sexual Orientation Not on file documented as of this encounter Plan of Treatment Not on file documented as of this encounter Visit Diagnoses Diagnosis Acute pharyngitis- Primary documented in this encounter Additional Health Concerns Infection Onset Date Last Indicated Resolved Time R/O COVID-19 01/31/2020 01/31/2020 02/02/2020 10:3 2 AM CDT documented as of this encounter Care Teams Furnace Erector Relationship Specialty Start Date End Date Areli Gurrola MD [address] [facility] [place] [address] PCP - General Specialist 08/12/19 documented as of this encounter
--- OUTSIDE RECORDS SUMMARY | 2025-03-08 01:26 | XMS_ITS | Encounter Summary ---
Author Organization [facility] Address [address] [place] [address] Care Team Providers Care Take Up Operator Name Role Phone Areli Gurrola MD [...] on file Legal Sex Female 3:40 AM SLAB STRIPPER Gender Identity Not on file Sexual Orientation [...] documented as of this encounter Care Teams Take Up Operator Relationship Specialty Start Date End Date Areli Gurrola MD [address] [place] [address] PCP - General Specialist 08/12/19 documented as of this encounter
--- OUTSIDE RECORDS SUMMARY | 2025-03-08 01:26 | XMS_ITS | Encounter Summary ---
Author Organization [facility] Address [address] [place] [address] Care Team Providers Care Tableau Administrator Name Role Phone Areli Gurrola MD Primary Care Provider Encounter Details Date Type Department Care Team (Latest Contact Info) Description 11/25/2002 Outpatient Historical [facility] [address] [place] [address] Gordon Cabral MD NO ADDRESS ON FILE DYSMENORRHEA (Primary Dx) Social History Tobacco Use Types Packs/Day Years Used Date Smoking Tobacco: Never Assessed Comments Unknown Sex and Gender Information Value Date Recorded Sex Assigned at Not on file Legal Sex Female 3:40 AM SAWMILL MANAGER Gender Identity Not on file Sexual Orientation Not on file documented as of this encounter Plan of Treatment Not on file documented as of this encounter Visit Diagnoses Diagnosis Dysmenorrhea- Primary documented in this encounter Additional Health Concerns Infection Onset Date Last Indicated Resolved Time R/O COVID-19 01/31/2020 01/31/2020 02/02/2020 10:3 2 AM CDT documented as of this encounter Care Teams Tableau Administrator Relationship Specialty Start Date End Date Areli Gurrola MD [address] [facility] [address] PCP - General Specialist 08/12/19 documented as of this encounter
--- OUTSIDE RECORDS SUMMARY | 2025-03-08 01:26 | XMS_ITS | Encounter Summary ---
Author Organization [facility] Address [address] [place] [address] Care Team Providers Care Manager Outpatient Name Role Phone Areli Gurrola MD Primary Care Provider Encounter Details Date Type Department Care Team (Latest Contact Info) Description 07/16/2001 Outpatient Historical [facility] [address] [place] [address] Trell York MD [address] [place] [phone] SWELLING OF LIMB (Primary Dx) Social History Tobacco Use Types Packs/Day Years Used Date Smoking Tobacco: Never Assessed Comments Unknown Sex and Gender Information Value Date Recorded Sex Assigned at Not on file Legal 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
--- OUTSIDE RECORDS SUMMARY | 2025-03-08 01:26 | XMS_ITS | Encounter Summary ---
Author Organization [facility] Address [address] [place] [address] Care Team Providers Care Women'S Health Care Nurse Practitioner Name Role Phone Areli Gurrola MD Primary Care Provider Encounter Details Date Type Department Care Team (Latest Contact Info) Description 12/18/2002 Outpatient Historical [facility] PreAdmission [address] [place] [address] Gordon Cabral MD NO ADDRESS ON FILE PREOP EXAM OTHER SPECIFIED (Primary Dx) Social History Tobacco Use Types Packs/Day Years Used Date Smoking Tobacco: Never Assessed Comments Unknown Sex and Gender Information Value Date Recorded Sex Assigned at Not on file Legal Sex Female 3:40 AM NETWORK SUPPORT Gender Identity Not on file Sexual [...] documented as of this encounter Care Teams Women'S Health Care Nurse Practitioner Relationship Specialty Start Date End Date Areli Gurrola MD [address] [place] [address] PCP - General Specialist 08/12/19 documented as of this encounter
--- OUTSIDE RECORDS SUMMARY | 2025-03-08 01:26 | XMS_ITS | Encounter Summary ---
Author Organization [facility] Address [address] [place] [address] Care Team Providers Care Outpatient Phlebotomist Name Role Phone Areli Gurrola MD Primary Care Provider Encounter Details Date Type Department Care Team (Latest Contact Info) Description 12/02/2002 Outpatient [facility] [address] [place] [address] Gordon Cabral MD NO ADDRESS ON FILE FEMALE GENITAL SYMPTOMS NOS (Primary Dx) Social History Tobacco Use Types Packs/Day Years Used Date Smoking Tobacco: Never Assessed Comments Unknown Sex and Gender Information Value Date Recorded Sex Assigned at Not on file Legal Sex Female 3:40 AM ERECTION SHOP SUPERVISOR Gender Identity Not on file Sexual [...] as of this encounter Care Teams Outpatient Phlebotomist Relationship Specialty Start Date End Date Areli Gurrola MD [address] [place] [address] PCP - General Specialist 08/12/19 documented as of this encounter
--- OUTSIDE RECORDS SUMMARY | 2025-03-08 01:26 | XMS_ITS | Encounter Summary ---
Author Organization [facility] Address [address] [place] [address] Care Team Providers Care Stove Mounter Name Role Phone Areli Gurrola MD Primary Care Provider Encounter Details Date Type Department Care Team (Latest Contact Info) Description 07/29/2001 Outpatient Historical [facility] [address] [place] [address] Trell York MD [address] [place] [phone] COMMON MIGRAINE W/O MENTN INTRACT (Primary Dx); LUMBAGO Social History Tobacco Use Types Packs/Day Years Used Date Smoking Tobacco: Never Assessed Comments Unknown Sex and Gender Information Value Date Recorded Sex Assigned at Not on file Legal Sex Female 3:40 AM DATA CENTER MANAGER Gender Identity Not on file Sexual [...] documented as of this encounter Care Teams Stove Mounter Relationship Specialty Start Date End Date Areli Gurrola MD [address] [facility] [place] [address] PCP - General Specialist 08/12/19 documented as of this encounter
--- OUTSIDE RECORDS SUMMARY | 2025-03-08 01:26 | XMS_ITS | Encounter Summary ---
Author Organization [facility] Address [address] [place] [address] Care Team Providers Care Technology Support Analyst Name Role Phone Areli Gurrola MD Primary Care Provider Encounter Details Date Type Department Care Team (Latest Contact Info) Description 10/31/2002 Outpatient [facility] [address] [place] [address] Gordon Cabral MD NO ADDRESS ON FILE SURGERY FOLLOWUP, UNSPEC (Primary Dx) Social History Tobacco Use Types Packs/Day Years Used Date Smoking Tobacco: Never Assessed Comments Unknown Sex and Gender Information Value Date Recorded Sex Assigned at Not on file Legal Sex Female 3:40 AM TACK COVERER Gender Identity Not on file Sexual Orientation [...] documented as of this encounter Care Teams Technology Support Analyst Relationship Specialty Start Date End Date Areli Gurrola MD [address] [facility] [place] [address] PCP - General Specialist 08/12/19 documented as of this encounter
--- OUTSIDE RECORDS SUMMARY | 2025-03-08 01:26 | XMS_ITS | Encounter Summary ---
Author Organization [facility] Address [address] [place] [address] Care Team Providers Care Rock Crushing Machine Operator Name Role Phone Areli Gurrola MD Primary Care Provider Encounter Details Date Type Department Care Team (Latest Contact Info) Description 02/05/2003 Outpatient Historical [facility] [address] [place] [address] Gordon Cabral MD NO ADDRESS ON FILE SURGERY FOLLOWUP, UNSPEC (Primary Dx) Social History Tobacco Use Types Packs/Day Years Used Date Smoking Tobacco: Never Assessed Comments Unknown Sex and Gender Information Value Date Recorded Sex Assigned at Not on file Legal Sex Female 3:40 AM LIFE MANAGER Gender Identity Not on file Sexual [...] as of this encounter Care Teams Rock Crushing Machine Operator Relationship Specialty Start Date End Date Areli Gurrola MD [address] [facility] [place] [address] PCP - General Specialist 08/12/19 documented as of this encounter
--- OUTSIDE RECORDS SUMMARY | 2025-03-08 01:26 | XMS_ITS | Encounter Summary ---
Author Organization [facility] Address [address] [place] [address] Care Team Providers Care Flatlock Sewing Machine Operator Name Role Phone Areli Gurrola MD Primary Care Provider Encounter Details Date Type Department Care Team (Latest Contact Info) Description 07/30/2002 Outpatient Historical [facility] [address] [place] [address] Trell York MD [address] [place] [phone] INSOMNIA NEC (Primary Dx); NEUROTIC DEPRESSION; LUMBAGO Social History Tobacco Use Types Packs/Day Years Used Date Smoking Tobacco: Never Assessed Comments Unknown Sex and Gender Information Value Date Recorded Sex Assigned at Not on file Legal Sex Female 3:40 AM POCKETS AND 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
--- OUTSIDE RECORDS SUMMARY | 2025-03-08 01:26 | XMS_ITS | Encounter Summary ---
Author Organization [facility] Address [address] [place] [address] Care Team Providers Care Product Ambassador Name Role Phone Areli Gurrola MD Primary Care Provider Encounter Details Date Type Department Care Team (Latest Contact Info) Description 12/04/2001 Outpatient [facility] [address] [place] [address] Trell York MD [address] [place] [phone] ACUTE BRONCHITIS (Primary Dx); COUGH Social History Tobacco Use Types Packs/Day Years Used Date Smoking Tobacco: Never Assessed Comments Unknown Sex and Gender Information Value Date Recorded Sex Assigned at Not on file Legal Sex Female 3:40 AM CRATE REPAIRER Gender Identity Not on file Sexual [...] as of this encounter Care Teams Product Ambassador Relationship Specialty Start Date End Date Areli Gurrola MD [address] [facility] [place] [address] PCP - General Specialist 08/12/19 documented as of this encounter
--- OUTSIDE RECORDS SUMMARY | 2025-03-08 01:26 | XMS_ITS | Encounter Summary ---
Author Organization [facility] Address [address] [place] [address] Care Team Providers Care Turntable Worker Name Role Phone Areli Gurrola MD Primary Care Provider Encounter Details Date Type Department Care Team (Latest Contact Info) Description 03/26/2002 Outpatient Historical [facility] [address] [place] [address] Trell York MD [address] [place] [phone] CERVICALGIA (Primary Dx); ABDOMINAL PAIN UNSPEC SITE [...] documented as of this encounter Care Teams Turntable Worker Relationship Specialty Start Date End Date Areli Gurrola MD [address] [facility] [place] [address] PCP - General Specialist 08/12/19 documented as of this encounter
--- OUTSIDE RECORDS SUMMARY | 2025-03-08 01:26 | XMS_ITS | Encounter Summary ---
Author Organization [facility] Address [address] [place] [address] Care Team Providers Care Tugboat Operator Name Role Phone Areli Gurrola MD Primary Care Provider Encounter Details Date Type Department Care Team (Latest Contact Info) Description 01/20/2002 Outpatient [facility] [address] [place] [address] Trell York MD [address] [place] [address] NEUROTIC DEPRESSION (Primary Dx); ANXIETY STATE NOS; CERVICALGIA; LUMBAGO Social History Tobacco Use Types Packs/Day Years Used Date Smoking Tobacco: Never Assessed Comments Unknown Sex and Gender Information Value Date Recorded Sex Assigned at Not on file Legal Sex Female 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
--- OUTSIDE RECORDS SUMMARY | 2025-03-08 01:26 | XMS_ITS | Encounter Summary ---
Author Organization [facility] Address [address] [place] [address] Care Team Providers Care Resistance Welding Machine Operator Name Role Phone Areli Gurrola MD Primary Care Provider Encounter Details Date Type Department Care Team (Latest Contact Info) Description 04/07/2002 Outpatient Historical [facility] [address] [place] [address] Trell York MD [address] [place] [phone] URTICARIA NOS (Primary Dx) Social History Tobacco Use Types Packs/Day Years Used Date Smoking Tobacco: Never Assessed Comments Unknown Sex and Gender Information Value Date Recorded Sex Assigned at Not on file Legal Sex Female 3:40 AM BARREL 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 Gender Identity Not on file Sexual Orientation Not on file documented as of this encounter Plan of Treatment Not on file documented as of this encounter Visit Diagnoses Diagnosis Urticaria, unspecified- Primary documented in this encounter Additional Health Concerns Infection Onset Date Last Indicated Resolved Time R/O COVID-19 01/31/2020 01/31/2020 02/02/2020 10:3 2 AM CDT documented as of this encounter Care Teams Resistance Welding Machine Operator Relationship Specialty Start Date End Date Areli Gurrola MD [address] [facility] [place] [address] PCP - General Specialist 08/12/19 documented as of this encounter
--- OUTSIDE RECORDS SUMMARY | 2025-03-08 01:26 | XMS_ITS | Encounter Summary ---
Author Organization [facility] Address [address] [place] [address] Care Team Providers Care Railway Switchman Name Role Phone Areli Gurrola MD Primary Care Provider Encounter Details Date Type Department Care Team (Late st Contact Info) Description 04/14/2002 Outpatient Historical [facility] [address] [place] [address] Miguelangel Mas, NO ADDRESS ON FILE JOINT PAIN-ANKLE (Primary Dx) Social History Tobacco Use Types Packs/Day Years Used Date Smoking Tobacco: Never Assessed Comments Unknown Sex and Gender Information Value Date Recorded Sex Assigned at Not on file Legal Sex Female 3:40 AM TECHNICAL SUPPORT REPRESENTATIVE Gender Identity Not on file Sexual [...] documented as of this encounter Care Teams Railway Switchman Relationship Specialty Start Date End Date Areli Gurrola MD [address] [facility] [place] [address] PCP - General Specialist 08/12/19 documented as of this encounter
[2025-03-08 01:37] VITALS: BP 158/105; PULSE 114; RESP 19; TEMP 37.8; O2SAT 98; BMI 29.2
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
[2025-03-08 02:45] VITALS: RESP 18; O2SAT 98
[2025-03-08] MEDS: morphine 4 mg/mL SDV 1 mL IVP ×2 (02:45→04:58)
[2025-03-08] MEDS: ondansetron 2 mg/ML SDV 2 mL 4 MG IVP (02:45)
[2025-03-08 03:06] LABS: Hematocrit 25.8 % (36-47); Hemoglobin 9.00 g/dL (11.27-16.99); Mean Corpuscular HGB Conc 34.9 g/dL (30-55); Mean Corpuscular Hemoglobin 30.7 pg (27-33); Mean Corpuscular Volume 88.1 fl (85-98); Nucleated Red Blood Cells % 0 %; Platelet Count 96 10^3/cmm (157-399); Red Blood Count 2.93 10^6/uL (3.85-5.65); White Blood Count 8.17 10^3/uL (3.29-11.43)
[2025-03-08 03:19] LABS: INR 1.08 (0.8-1.2); Prothrombin Time 14.80 SECONDS (12.1-14.9)
[2025-03-08 03:20] LABS: Partial Thromboplastin Time 32.3 SECONDS (23.9-36.7)
[2025-03-08 03:28] LABS: Alanine Aminotransferase 28 U/L (0-33); Albumin Level 3.2 g/dL (3.5-5.2); Alcohol Level 118 mg/dL (0-10); Alkaline Phosphatase 162 U/L (35-105); Anion Gap 13.7 (5-19); Aspartate Amino Transferase 65 U/L (0-32); Blood Urea Nitrogen 13 mg/dL (6-20); Calcium 9.0 mg/dL (8.5-10.5); Carbon Dioxide 23 mmol/L (22-29); Chloride 111 mmol/L (98-107); Creatinine Clr Calc Pharmacy 161.1161; Globulin 2.7 g/dL (1.3-4.6); Glucose 118 mg/dL (65-115); Osmolality Calculated 299 mOsm/kg (285-295); Potassium 3.7 mmol/L (3.5-5.1); Sodium 144 mmol/L (136-145); Total Protein 5.9 g/dL (6.6-8.7)
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
[2025-03-08 03:57] VITALS: RESP 18; O2SAT 98
[2025-03-08] MEDS: oxyCODONE-APAP 5-325 mg Tablet 2 TAB PO (03:57)
[2025-03-08] MEDS: tranexamic acid 1,000 MG/100 ML PREMIX 600 MG IV (04:16)
[2025-03-08 04:58] VITALS: RESP 18; O2SAT 100
[2025-03-08 05:13] VITALS: BP 151/79; PULSE 114; O2SAT 100
== END 2025-03-08 05:15 | disposition short-term general hospital (02) ==
PROVIDERS: Emergency Provider Emergency Medicine; PCP Physician Assistant
DX: S06.5XAA Traumatic subdural hemorrhage with loss of consciousness status unknown, initial encounter (principal); S06.6XAA Traumatic subarachnoid hemorrhage with loss of consciousness status unknown, initial encounter; F17.290 Nicotine dependence, other tobacco product, uncomplicated; F17.210 Nicotine dependence, cigarettes, uncomplicated; E11.40 Type 2 diabetes mellitus with diabetic neuropathy, unspecified; I50.9 Heart failure, unspecified; Y04.2XXA Assault by strike against or bumped into by another person, initial encounter
CPT/HCPCS: 70450; 70486; 71250; 72125; 73552; 73590; 74176; 80053; 80307; 85025; 85610; 85730; 96374; 96375; 96376; 99285; J2270; J2405; J9999

== ENCOUNTER 2025-03-10 11:27 | Emergency (ER) | payer MEDICARE, MEDICAID, SELFPAY ==
[2024-09-18 15:42] VITALS: BP 147/78; BMI 37.0
[2025-03-10 11:34] VITALS: BP 152/87; PULSE 96; RESP 18; TEMP 36.7; O2SAT 100; BMI 29.7
[2025-03-10 12:10] VITALS: BP 156/81; PULSE 97; O2SAT 99
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
[2025-03-10 12:24] LABS: Hematocrit 23.5 % (36-47); Hemoglobin 7.90 g/dL (11.27-16.99); Mean Corpuscular HGB Conc 33.6 g/dL (30-55); Mean Corpuscular Hemoglobin 30.0 pg (27-33); Mean Corpuscular Volume 89.4 fl (85-98); Nucleated Red Blood Cells % 0 %; Platelet Count 76 10^3/cmm (157-399); Red Blood Count 2.63 10^6/uL (3.85-5.65); White Blood Count 3.70 10^3/uL (3.29-11.43)
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
[2025-03-10 12:30] VITALS: BP 168/70; PULSE 95; O2SAT 100
[2025-03-10 12:40] LABS: Glucose Urine UA Negative (Normal); Nitrate Urine Negative (Negative); Specific Gravity, Urine 1.021 (1.005-1.030)
[2025-03-10 12:42] LABS: Add Urine Microscopic? YES
[2025-03-10 12:46] LABS: Alanine Aminotransferase 30 U/L (0-33); Albumin Level 3.1 g/dL (3.5-5.2); Alkaline Phosphatase 195 U/L (35-105); Anion Gap 14.7 (5-19); Aspartate Amino Transferase 75 U/L (0-32); Blood Urea Nitrogen 11 mg/dL (6-20); Calcium 8.3 mg/dL (8.5-10.5); Carbon Dioxide 24 mmol/L (22-29); Chloride 105 mmol/L (98-107); Globulin 2.5 g/dL (1.3-4.6); Glucose 123 mg/dL (65-115); Osmolality Calculated 291 mOsm/kg (285-295); Potassium 3.7 mmol/L (3.5-5.1); Sodium 140 mmol/L (136-145); Total Protein 5.6 g/dL (6.6-8.7)
--- NOTE | 2025-03-10 12:50 | XR_ITS ---
WS: [id number] Exam: XR hip RT 2-3V wo/w pel* [id number] Date/Time of Exam: 03/10/2025 12:50 PM Reason For Exam: trauma Comparison 03/08/2025. No acute fracture. Moderate degenerative change. Partially visualized fusion hardware in the lower lumbar and sacral spine. XR/XR hip RT 2-3V wo/w pel* [id number] IMPRESSION: 1. No acute fracture.
--- NOTE | 2025-03-10 12:50 | CT_ITS ---
WS: [id number] CT LUMBAR SPINE TECHNIQUE: Noncontrast CT of the lumbar spine with coronal and sagittal reformatted images. CLINICAL INFORMATION: Trauma COMPARISON: MRI 12/15/2024 DLP: 880.[address] scans at [facility] use at least one of these dose optimization techniques: automated exposure control; mA and/or kV adjustment per patient size (includes targeted exams where dose is matched to clinical indication); or iterative reconstruction. FINDINGS: Postoperative changes medical screw fixation L3-S1 with interconnecting rods. Interbody fusion device L4-5. Osteopenia. Laminectomy defects lower lumbar spine. Dorsal lateral bone graft material. Loosening of the LEFT greater than RIGHT L3 pedicle screws. Interconnecting rods appear intact. Compression inferior endplate L1 is stable since 12/15/2024. Mild compression superior endplate L4 also stable since 12/15/2024. No new compression fractures. L1-L2: Mild bilateral foraminal narrowing. Spinal canal is patent. L2-L3: Mild disc bulge with endplate ridging. Mild LEFT foraminal narrowing. Moderate facet arthropathy. L3-L4: LEFT foraminal protrusion with moderate LEFT foraminal narrowing. Spinal canal and RIGHT foramen are patent. Narrowing of the LEFT subarticular recess. L4-L5: Laminectomy defects. Spinal canal and foramen appear patent. L5-S1: Images degraded at this level due to hardware artifact. Spinal canal appears patent. Mild RIGHT foraminal narrowing. Lung bases are well aerated. Cholecystectomy clips. Partially visualized induration in the central mesentery with slight perihepatic ascites and splenomegaly. Recommend correlation with liver function arlen. Partially visualized hepatic cyst. Diffuse body wall anasarca. CT/CT lumbar spine wo con* [id number] IMPRESSION: 1. Chronic compression injury endplate L1 unchanged since 12/15/2024. 2. Stable mild compression superior plate L4. 3. No high-grade central canal stenosis. 4. Loosening of the bilateral L3 pedicle screws at L3. 5. No other acute lumbar spine findings.
[2025-03-10 13:49] VITALS: BP 149/85; PULSE 97; RESP 18; O2SAT 100
[2025-03-10 15:12] VITALS: BP 174/89; PULSE 93; O2SAT 100
== END 2025-03-10 15:16 | disposition home or self-care (01) ==
PROVIDERS: Emergency Provider Family Medicine; PCP Physician Assistant
DX: M54.9 Dorsalgia, unspecified (principal); D69.6 Thrombocytopenia, unspecified; K70.30 Alcoholic cirrhosis of liver without ascites; D64.9 Anemia, unspecified; F17.210 Nicotine dependence, cigarettes, uncomplicated; F17.290 Nicotine dependence, other tobacco product, uncomplicated; E11.40 Type 2 diabetes mellitus with diabetic neuropathy, unspecified; I50.9 Heart failure, unspecified; T74.11XD Adult physical abuse, confirmed, subsequent encounter; X58.XXXD Exposure to other specified factors, subsequent encounter
CPT/HCPCS: 36415; 72131; 73502; 80053; 81001; 85025; 99284; J9999

== ENCOUNTER 2025-03-14 13:48 | Emergency (ER) | payer MEDICARE, MEDICAID, SELFPAY ==
[2024-09-18 15:42] VITALS: BP 147/78; BMI 37.0
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
[2025-03-14 13:48] VITALS: BP 176/89; PULSE 99; RESP 18; TEMP 36.9; O2SAT 100
--- OUTSIDE RECORDS SUMMARY | 2025-03-14 13:51 | XMS_ITS | Encounter Summary ---
Author Organization [facility] Address [address] [place] [address] Care Team Providers Care Bi Developer Name Role Phone Areli Gurrola MD Primary Care Provider Encounter Details Date Type Department Care Team (Latest Contact Info) Description 09/29/[address] [facility] [address] [place] [address] Trell York MD [address] [place] [phone] Obesity, unspecified (Primary Dx); Lumbago Social History Tobacco Use Types Packs/Day Years Used Date Smoking Tobacco: Never Assessed Comments Unknown Sex and Gender Information Value Date Recorded Sex Assigned at Not on file Legal Sex Female 3:40 AM RAYMOND MILL OPERATOR Gender Identity Not on file [...] documented as of this encounter Care Teams Bi Developer Relationship Specialty Start Date End Date Areli Gurrola MD [address] [facility] [place] [phone] PCP - General Specialist 08/12/19 documented as of this encounter
--- OUTSIDE RECORDS SUMMARY | 2025-03-14 13:51 | XMS_ITS | Encounter Summary ---
Author Organization [facility] Address [address] [place] [address] Care Team Providers Care Band Sewer Name Role Phone Areli Gurrola MD Primary Care Provider Encounter Details Date Type Department Care Team (Latest Contact Info) Description 10/27/1999 Outpatient Historical [facility] [address] [place] [address] Trell York MD [address] [place] [phone] Lumbago (Primary Dx) Social History Tobacco Use Types Packs/Day Years Used Date Smoking Tobacco: Never Assessed Comments Unknown Sex and Gender Information Value Date Recorded Sex Assigned at Not on file Legal Sex Female 3:40 AM FIELD OBSERVER Gender Identity Not on file Sexual Orientation Not on file documented as of this encounter Plan of Treatment Not on file documented as of this encounter Visit Diagnoses Diagnosis Lumbago- Primary documented in this encounter Additional Health Concerns Infection Onset Date Last Indicated Resolved Time R/O COVID-19 01/31/2020 01/31/2020 02/02/2020 10:3 2 AM CDT documented as of this encounter Care Teams Band Sewer Relationship Specialty Start Date End Date Areli Gurrola MD [address] [facility] [place] [address] PCP - General Specialist 08/12/19 documented as of this encounter
--- OUTSIDE RECORDS SUMMARY | 2025-03-14 13:51 | XMS_ITS | Encounter Summary ---
Author Organization [facility] Address [address] [place] [address] Care Team Providers Care Hot Iron Worker Name Role Phone Areli Gurrola MD Primary Care Provider Encounter Details Date Type Department Care Team (Latest Contact Info) Description 04/25/2001 Outpatient Historical [facility] [address] [place] [address] Trell York MD [address] [place] [phone] ESOPHAGITIS, UNSPECIFIED (Primary Dx); LUMBAGO; SEBACEOUS CYST Social History Tobacco Use Types Packs/Day Years Used Date Smoking Tobacco: Never Assessed Comments Unknown Sex and Gender Information Value Date Recorded Sex Assigned at Not on file Legal Sex Female 3:40 AM RESIDENTIAL LAWN SPECIALIST Gender Identity Not on file Sexual [...] as of this encounter Care Teams Hot Iron Worker Relationship Specialty Start Date End Date Areli Gurrola MD [address] [place] [address] PCP - General Specialist 08/12/19 documented as of this encounter
--- OUTSIDE RECORDS SUMMARY | 2025-03-14 13:51 | XMS_ITS | Encounter Summary ---
Author Organization [facility] Address [address] [place] [address] Care Team Providers Care Solar Electric/Photovoltaic Installer Name Role Phone Areli Gurrola MD Primary Care Provider Encounter Details Date Type Department Care Team (Latest Contact Info) Description 12/05/2000 [facility] [address] [place] [address] Trell York MD [address] [place] [phone] Lumbago (Primary Dx); Cervicalgia; Pain in joint, pelvic region and thigh Social History Tobacco Use Types Packs/Day Years Used Date Smoking Tobacco: Never Assessed Comments Unknown Sex and Gender Information Value Date Recorded Sex Assigned at Not on file Legal Sex Female 3:40 AM BUSINESS PERFORMANCE ADVISOR Gender Identity Not on file Sexual [...] documented as of this encounter Care Teams Solar Electric/Photovoltaic Installer Relationship Specialty Start Date End Date Areli Gurrola MD [address] [place] [address] PCP - General Specialist 08/12/19 documented as of this encounter
--- OUTSIDE RECORDS SUMMARY | 2025-03-14 13:51 | XMS_ITS | Encounter Summary ---
Author Organization [facility] Address [address] [place] [address] Care Team Providers Care Marine Safety Officer Name Role Phone Areli Gurrola MD Primary Care Provider Encounter Details Date Type Department Care Team (Latest Contact Info) Description 10/08/2000 [facility]patient [facility] [address] [place] [address] Trell York MD [address] [place] [phone] Sprain and strain of unspecified site of knee and leg (Primary Dx) Social History Tobacco Use Types Packs/Day Years Used Date Smoking Tobacco: Never Assessed Comments Unknown Sex and Gender Information Value Date Recorded Sex Assigned at Not on file Legal Sex Female 3:40 AM ADMINISTRATIVE ACCOUNTANT Gender Identity Not on file Sexual [...] as of this encounter Care Teams Marine Safety Officer Relationship Specialty Start Date End Date Areli Gurrola MD [address] [facility] [place] [address] PCP - General Specialist 08/12/19 documented as of this encounter
--- OUTSIDE RECORDS SUMMARY | 2025-03-14 13:51 | XMS_ITS | Encounter Summary ---
Author Organization [facility] Address [address] [place] [address] Care Team Providers Care Inspector Soldering Name Role Phone Areli Gurrola MD Primary Care Provider Encounter Details Date Type Department Care Team (Latest Contact Info) Description 11/13/2000 Outpatient Historical [facility] [address] [place] [address] Trell York MD [address] [place] [phone] Insomnia, unspecified (Primary Dx); Lumbago Social History Tobacco Use Types Packs/Day Years Used Date Smoking Tobacco: Never Assessed Comments Unknown Sex and Gender Information Value Date Recorded Sex Assigned at Not on file Legal Sex Female 3:40 AM DISTRICT COMMERCIAL SUPERINTENDENT Gender Identity Not on file Sexual [...] as of this encounter Care Teams Inspector Soldering Relationship Specialty Start Date End Date Areli Gurrola MD [address] [facility] [address] PCP - General Specialist 08/12/19 documented as of this encounter
--- OUTSIDE RECORDS SUMMARY | 2025-03-14 13:51 | XMS_ITS | Encounter Summary ---
Author Organization [facility] Address [address] [place] [address] Care Team Providers Care Database Programmer Name Role Phone Areli Gurrola MD Primary Care Provider Encounter Details Date Type Department Care Team (Late st Contact Info) Description 03/25/1999 Outpatient [facility] Social History Tobacco Use Types Packs/Day Years Used Date Smoking Tobacco: Never Assessed Comments Unknown Sex and Gender Information Value Date Recorded Sex Assigned at Not on file Legal Sex Female 3:40 AM DESTINATION COORDINATOR Gender Identity Not on file Sexual Orientation Not on file documented as of this encounter Plan of Treatment Not on file documented as of this encounter Visit Diagnoses Not on filedocumented in this encounter Additional Health Concerns Infection Onset Date Last Indicated Resolved Time R/O COVID-19 01/31/2020 01/31/2020 02/02/2020 10:3 2 AM CDT documented as of this encounter Care Teams Database Programmer Relationship Specialty Start Date End Date Areli Gurrola MD [address] [place] [address] PCP - General Specialist 08/12/19 documented as of this encounter
--- OUTSIDE RECORDS SUMMARY | 2025-03-14 13:51 | XMS_ITS | Clinical Summary ---
Author Organization [facility] Address [address] [place] [address] Care Team Providers Care Grants Manager Name Role Phone Areli Gurrola MD [...] file Legal Sex Female 3:40 AM RESIDENTIAL TECH Gender Identity Not on file Sexual [...] or Tdap) 03/15/2030 03/15/2020, 11/07/1997, 03/03/1997 Insurance [facility] DUAL COMPLETE MCR PPO D-SNP MEDICAID [place] Advance Directives For more information, please contact: [phone] * Full Code (Latest Code Status on File) Date Activated Date Inactivated Comments 02/17/2016 12:44 PM 02/17/2016 4:46 PM Care Teams Grants Manager Relationship Specialty Start Date End Date Areli Gurrola MD [address] [place] [phone] PCP - General Specialist 08/12/19
--- OUTSIDE RECORDS SUMMARY | 2025-03-14 13:51 | XMS_ITS | Encounter Summary ---
Author Organization [facility] Address [address] [place] [address] Care Team Providers Care Die Engraver Name Role Phone Areli Gurrola MD Primary Care Provider Encounter Details Date Type Department Care Team (Latest Contact Info) Description 05/24/1999 Outpatient Historical [facility] [address] [place] [address] Trell York MD [address] [place] [phone] Edema (Primary Dx); Lumbago Social History Tobacco Use Types Packs/Day Years Used Date Smoking Tobacco: Never Assessed Comments Unknown Sex and Gender Information Value Date Recorded Sex Assigned at Not on file Legal Sex Female 3:40 AM APPLICATIONS TESTER Gender Identity Not on file Sexual [...] as of this encounter Care Teams Die Engraver Relationship Specialty Start Date End Date Areli Gurrola MD [address] [facility] [place] [address] PCP - General Specialist 08/12/19 documented as of this encounter
--- OUTSIDE RECORDS SUMMARY | 2025-03-14 13:51 | XMS_ITS | Encounter Summary ---
Author Organization [facility] Address [address] [place] [address] Care Team Providers Care Director Case Management Name Role Phone Areli Gurrola MD Primary Care Provider Encounter Details Date Type Department Care Team (Latest Contact Info) Description 12/27/1999 [facility] [address] [place] [address] Trell York MD [address] [place] [phone] Migraine without aura, without mention of intractable migraine without mention of status migrainosus (Primary Dx); Lumbago Social History Tobacco Use Types Packs/Day Years Used Date Smoking Tobacco: Never Assessed Comments Unknown Sex and Gender Information Value Date Recorded Sex Assigned at Not on file Legal Sex Female 3:40 AM GROUP THERAPY COUNSELOR Gender Identity Not on file Sexual [...] as of this encounter Care Teams Director Case Management Relationship Specialty Start Date End Date Areli Gurrola MD [address] [facility] [place] [address] PCP - General Specialist 08/12/19 documented as of this encounter
--- OUTSIDE RECORDS SUMMARY | 2025-03-14 13:51 | XMS_ITS | Encounter Summary ---
Author Organization [facility] Address [address] [place] [address] Care Team Providers Care Accounting Intern Name Role Phone Areli Gurrola MD Primary Care Provider Encounter Details Date Type Department Care Team (Latest Contact Info) Description 07/27/2000 Outpatient Historical [facility] [address] [place] [address] Trell York MD [address] [place] [phone] Unspecified disorder of female genital organs (Primary Dx); Cervicalgia Social History Tobacco Use Types Packs/Day Years Used Date Smoking Tobacco: Never Assessed Comments Unknown Sex and Gender Information Value Date Recorded Sex Assigned at Not on file Legal Sex Female 3:40 AM IT INTERN Gender Identity Not on file Sexual [...] as of this encounter Care Teams Accounting Intern Relationship Specialty Start Date End Date Areli Gurrola MD [address] [place] [address] PCP - General Specialist 08/12/19 documented as of this encounter
--- OUTSIDE RECORDS SUMMARY | 2025-03-14 13:51 | XMS_ITS | Encounter Summary ---
Author Organization [facility] Address [address] [place] [address] Care Team Providers Care Orange Grower Name Role Phone Arlei Gurrola MD Primary Care Provider Encounter Details Date Type Department Care Team (Latest Contact Info) Description 06/08/1999 Outpatient Historical [facility] [place], Trell Pascual MD [address] [place] [address] Obesity, unspecified (Primary Dx); Encounter for long-term (current) use of other medications Social History Tobacco Use Types Packs/Day Years Used Date Smoking Tobacco: Never Assessed Comments Unknown Sex and Gender Information Value Date Recorded Sex Assigned at Not on file Legal Sex Female 3:40 AM PROFESSIONAL BASS FISHER Gender Identity Not on file Sexual Orientation [...] documented as of this encounter Care Teams Orange Grower Relationship Specialty Start Date End Date Areli Gurrola MD [address] [facility] [place] [address] PCP - General Specialist 08/12/19 documented as of this encounter
--- OUTSIDE RECORDS SUMMARY | 2025-03-14 13:51 | XMS_ITS | Encounter Summary ---
Author Organization [facility] Address [address] [facility] Attn: [place] [address] Care Team Providers Care Consolidation Accountant Name Role Phone Areli Gurrola MD [...] file Legal Sex Female 3:[address] SUPERVISOR OF ENGINES Gender Identity Not on file Sexual Orientation Not on file documented as of this encounter Plan of Treatment Not on file documented as of this encounter Visit Diagnoses Not on filedocumented in this encounter Additional Health Concerns Infection Onset Date Last Indicated Resolved Time R/O COVID-19 01/31/2020 01/31/2020 02/02/2020 10:3 2 AM CDT documented as of this encounter Care Teams Consolidation Accountant Relationship Specialty Start Date End Date Areli Gurrola MD [address] [place] [address] PCP - General Specialist 08/12/19 documented as of this encounter
--- OUTSIDE RECORDS SUMMARY | 2025-03-14 13:51 | XMS_ITS | Encounter Summary ---
Author Organization [facility] Address [address] [place] [address] Care Team Providers Care Administrative Services Director Name Role Phone Areli Gurrola MD Primary Care Provider Encounter Details Date Type Department Care Team (Latest Contact Info) Description 07/20/1999 Outpatient Historical [facility] Joseph Ramos MD [address] [place] [address] Pain in joint, hand (Primary Dx) Social History Tobacco Use Types Packs/Day Years Used Date Smoking Tobacco: Never Assessed Comments Unknown Sex and Gender Information Value Date Recorded Sex Assigned at Not on file Legal Sex Female 3:40 AM COLLAR RUNNER Gender Identity Not on file Sexual [...] as of this encounter Care Teams Administrative Services Director Relationship Specialty Start Date End Date Areli Gurrola MD [address] [facility] [place] [address] PCP - General Specialist 08/12/19 documented as of this encounter
--- OUTSIDE RECORDS SUMMARY | 2025-03-14 13:51 | XMS_ITS | Encounter Summary ---
Author Organization [facility] Address [address] [place] [address] Care Team Providers Care Lead Painter Name Role Phone Areli Gurrola MD Primary Care Provider Encounter Details Date Type Department Care Team (Latest Contact Info) Description 09/01/1999 Outpatient Historical [facility] Joseph Ramos MD [address] [place] [address] Pain in joint, hand (Primary Dx); Follow-up examination following surgery Social History Tobacco Use Types Packs/Day Years Used Date Smoking Tobacco: Never Assessed Comments Unknown Sex and Gender Information Value Date Recorded Sex Assigned at Not on file Legal Sex Female 3:40 AM REGULATORY AFFAIRS STRATEGY SPECIALIST Gender Identity Not on file Sexual [...] as of this encounter Care Teams Lead Painter Relationship Specialty Start Date End Date Areli Gurrola MD [address] [place] [address] PCP - General Specialist 08/12/19 documented as of this encounter
--- OUTSIDE RECORDS SUMMARY | 2025-03-14 13:51 | XMS_ITS | Encounter Summary ---
Author Organization [employer] Address [address] [place] [address] Care Team Providers Care Parking Analyst Name Role Phone Areli Gurrola MD Primary Care Provider Encounter Details Date Type Department Care Team (Late st Contact Info) Description 03/18/1999 Outpatient Historical [facility] Social History Tobacco Use Types Packs/Day Years Used Date Smoking Tobacco: Never Assessed Comments Unknown Sex and Gender Information Value Date Recorded Sex Assigned at Not on file Legal Sex Female 3:40 AM LIQUIFIED NATURAL GAS TECHNICIAN Gender Identity Not on file Sexual Orientation Not on file documented as of this encounter Plan of Treatment Not on file documented as of this encounter Visit Diagnoses Not on filedocumented in this encounter Additional Health Concerns Infection Onset Date Last Indicated Resolved Time R/O COVID-19 01/31/2020 01/31/2020 02/02/2020 10:3 2 AM CDT documented as of this encounter Care Teams Parking Analyst Relationship Specialty Start Date End Date Areli Gurrola MD [address] [place] [address] PCP - General Specialist 08/12/19 documented as of this encounter
--- OUTSIDE RECORDS SUMMARY | 2025-03-14 13:51 | XMS_ITS | Encounter Summary ---
Author Organization [facility] Address [address] [place] [address] Care Team Providers Care Assistant Real Estate Manager Name Role Phone Areli Gurrola MD Primary Care Provider Encounter Details Date Type Department Care Team (Latest Contact Info) Description 01/30/2000 Outpatient Historical [facility] [address] [place] [address] Trell York MD [address] [place] [address] Lumbago (Primary Dx) Social History Tobacco Use Types Packs/Day Years Used Date Smoking Tobacco: Never Assessed Comments Unknown Sex and Gender Information Value Date Recorded Sex Assigned at Not on file Legal Sex Female 3:40 AM LPN PRIVATE DUTY Gender Identity Not on file Sexual Orientation Not on file documented as of this encounter Plan of Treatment Not on file documented as of this encounter Visit Diagnoses Diagnosis Lumbago- Primary documented in this encounter Additional Health Concerns Infection Onset Date Last Indicated Resolved Time R/O COVID-19 01/31/2020 01/31/2020 02/02/2020 10:3 2 AM CDT documented as of this encounter Care Teams Assistant Real Estate Manager Relationship Specialty Start Date End Date Areli Gurrola MD [address] [place] [address] PCP - General Specialist 08/12/19 documented as of this encounter
--- OUTSIDE RECORDS SUMMARY | 2025-03-14 13:51 | XMS_ITS | Encounter Summary ---
Author Organization [facility] Address [address] [place] [address] Care Team Providers Care Acetylene Burner Name Role Phone Areli Gurrola MD Primary Care Provider Encounter Details Date Type Department Care Team (Late st Contact Info) Description 03/25/1999 Outpatient Historical [facility] Social History Tobacco Use Types Packs/Day Years Used Date Smoking Tobacco: Never Assessed Comments Unknown Sex and Gender Information Value Date Recorded Sex Assigned at Not on file Legal Sex Female 3:40 AM CHIEF INFORMATION OFFICER Gender Identity Not on file Sexual Orientation Not on file documented as of this encounter Plan of Treatment Not on file documented as of this encounter Visit Diagnoses Not on filedocumented in this encounter Additional Health Concerns Infection Onset Date Last Indicated Resolved Time R/O COVID-19 01/31/2020 01/31/2020 02/02/2020 10:3 2 AM CDT documented as of this encounter Care Teams Acetylene Burner Relationship Specialty Start Date End Date Areli Gurrola MD [address] [place] [address] PCP - General Specialist 08/12/19 documented as of this encounter
--- OUTSIDE RECORDS SUMMARY | 2025-03-14 13:51 | XMS_ITS | Encounter Summary ---
Author Organization [facility] Address [address] [facility] Attn: [place] [address] Care Team Providers Care Facer Operator Name Role Phone Areli Gurrola MD [...] on file Legal Sex Female 3:40 AM HEALTHCARE NETWORK PRICING CONSULTANT Gender Identity Not on file Sexual Orientation Not on file documented as of this encounter Plan of Treatment Not on file documented as of this encounter Visit Diagnoses Not on filedocumented in this encounter Additional Health Concerns Infection Onset Date Last Indicated Resolved Time R/O COVID-19 01/31/2020 01/31/2020 02/02/2020 10:3 2 AM CDT documented as of this encounter Care Teams Facer Operator Relationship Specialty Start Date End Date Areli Gurrola MD [address] [facility] [place] [address] PCP - General Specialist 08/12/19 documented as of this encounter
--- OUTSIDE RECORDS SUMMARY | 2025-03-14 13:51 | XMS_ITS | Encounter Summary ---
Author Organization [facility] Address [address] [facility] Attn: [place] [address] Care Team Providers Care Graduate Teaching Assistant Name Role Phone Areli Gurrola MD Primary Care Provider Encounter Details Date Type Department Care Team (Late st Contact Info) Description 11/10/1999 Outpatient Historical Joseph Ramos MD [address] [place] [address] Social History Tobacco Use Types Packs/Day Years Used Date Smoking Tobacco: Never Assessed Comments Unknown Sex and Gender Information Value Date Recorded Sex Assigned at Not on file Legal Sex Female 3:40 AM BEVELER Gender Identity Not on file Sexual Orientation Not on file documented as of this encounter Plan of Treatment Not on file documented as of this encounter Visit Diagnoses Not on filedocumented in this encounter Additional Health Concerns Infection Onset Date Last Indicated Resolved Time R/O COVID-19 01/31/2020 01/31/2020 02/02/2020 10:3 2 AM CDT documented as of this encounter Care Teams Graduate Teaching Assistant Relationship Specialty Start Date End Date Areli Gurrola MD [address] [facility] [place] [address] PCP - General Specialist 08/12/19 documented as of this encounter
--- OUTSIDE RECORDS SUMMARY | 2025-03-14 13:51 | XMS_ITS | Encounter Summary ---
Author Organization [facility] Address [address] [place] [address] Care Team Providers Care Jailer/Training Officer Name Role Phone Areli Gurrola MD Primary Care Provider Encounter Details Date Type Department Care Team (Late st Contact Info) Description 03/30/1999 Outpatient Historical [facility] Social History Tobacco Use Types Packs/Day Years Used Date Smoking Tobacco: Never Assessed Comments Unknown Sex and Gender Information Value Date Recorded Sex Assigned at Not on file Legal Sex Female 3:40 AM AIR CONDITIONING UNIT ASSEMBLER Gender Identity Not on file Sexual Orientation Not on file documented as of this encounter Plan of Treatment Not on file documented as of this encounter Visit Diagnoses Not on filedocumented in this encounter Additional Health Concerns Infection Onset Date Last Indicated Resolved Time R/O COVID-19 01/31/2020 01/31/2020 02/02/2020 10:3 2 AM CDT documented as of this encounter Care Teams Jailer/Training Officer Relationship Specialty Start Date End Date Areli Gurrola MD [address] [place] [address] PCP - General Specialist 08/12/19 documented as of this encounter
--- OUTSIDE RECORDS SUMMARY | 2025-03-14 13:51 | XMS_ITS | Encounter Summary ---
Author Organization [facility] Address [address] [place] [address] Care Team Providers Care Retail Tire Sales Manager Name Role Phone Areli Gurrola MD Primary Care Provider Encounter Details Date Type Department Care Team (Latest Contact Info) Description 06/20/1999 Outpatient Historical [facility] Joseph Ramos MD [address] [place] [address] Pain in joint, hand (Primary Dx) Social History Tobacco Use Types Packs/Day Years Used Date Smoking Tobacco: Never Assessed Comments Unknown Sex and Gender Information Value Date Recorded Sex Assigned at Not on file Legal Sex Female 3:40 AM KEEL PRESS OPERATOR Gender Identity Not on file [...] as of this encounter Care Teams Retail Tire Sales Manager Relationship Specialty Start Date End Date Areli Gurrola MD [address] [facility] [place] [address] PCP - General Specialist 08/12/19 documented as of this encounter
--- OUTSIDE RECORDS SUMMARY | 2025-03-14 13:51 | XMS_ITS | Encounter Summary ---
Author Organization [facility] Address [address] [facility] Attn: [place] [address] Care Team Providers Care Batch Blender Name Role Phone Areli Gurrola MD Primary Care Provider Encounter Details Date Type Department Care Team (Late st Contact Info) Description 06/11/2001 Inpatient Historical Renan Martinez MD [address] [place] [address] Social History Tobacco Use Types Packs/Day Years Used Date Smoking Tobacco: Never Assessed Comments Unknown Sex and Gender Information Value Date Recorded Sex Assigned at Not on file Legal Sex Female 3:40 AM PRODUCE PRODUCTION TEAM MEMBER Gender Identity Not on file Sexual Orientation Not on file documented as of this encounter Plan of Treatment Not on file documented as of this encounter Visit Diagnoses Not on filedocumented in this encounter Additional Health Concerns Infection Onset Date Last Indicated Resolved Time R/O COVID-19 01/31/2020 01/31/2020 02/02/2020 10:3 2 AM CDT documented as of this encounter Care Teams Batch Blender Relationship Specialty Start Date End Date Areli Gurrola MD [address] [facility] [place] [address] PCP - General Specialist 08/12/19 documented as of this encounter
--- OUTSIDE RECORDS SUMMARY | 2025-03-14 13:51 | XMS_ITS | Encounter Summary ---
Author Organization [facility] Address [address] [place] [address] Care Team Providers Care Estimator And Drafter Supervisor Name Role Phone Areli Gurrola MD Primary Care Provider Encounter Details Date Type Department Care Team (Late st Contact Info) Description 05/03/1999 Outpatient Historical [facility] [place], Gibran Lynn MD [address] [facility] [address] [place] [address] Cramp of limb (Primary Dx) Social History Tobacco Use Types Packs/Day Years Used Date Smoking Tobacco: Never Assessed Comments Unknown Sex and Gender Information Value Date Recorded Sex Assigned at Not on file Legal Sex Female 3:40 AM LANGUAGE PATH Gender Identity Not on file Sexual Orientation Not on file documented as of this encounter Plan of Treatment Not on file documented as of this encounter Visit Diagnoses Diagnosis Cramp of limb- Primary documented in this encounter Additional Health Concerns Infection Onset Date Last Indicated Resolved Time R/O COVID-19 01/31/2020 01/31/2020 02/02/2020 10:3 2 AM CDT documented as of this encounter Care Teams Estimator And Drafter Supervisor Relationship Specialty Start Date End Date Areli Gurrola MD [address] [place] [address] PCP - General Specialist 08/12/19 documented as of this encounter
--- OUTSIDE RECORDS SUMMARY | 2025-03-14 13:51 | XMS_ITS | Encounter Summary ---
Author Organization [facility] Address [address] [facility] [address] Attn: [place] [address] Care Team Providers Care Mental Health Social Worker Name Role Phone Areli Gurrola MD Primary Care Provider Encounter Details Date Type Department Care Team (Late st Contact Info) Description 08/24/1999 Outpatient Historical Joseph Ramos MD [address] [place] [address] Social History Tobacco Use Types Packs/Day Years Used Date Smoking Tobacco: Never Assessed Comments Unknown Sex and Gender Information Value Date Recorded Sex Assigned at Not on file Legal Sex Female 3:40 AM WIRE CHIEF Gender Identity Not on file Sexual Orientation Not on file documented as of this encounter Plan of Treatment Not on file documented as of this encounter Visit Diagnoses Not on filedocumented in this encounter Additional Health Concerns Infection Onset Date Last Indicated Resolved Time R/O COVID-19 01/31/2020 01/31/2020 02/02/2020 10:3 2 AM CDT documented as of this encounter Care Teams Mental Health Social Worker Relationship Specialty Start Date End Date Areli Gurrola MD [address] [facility] [place] [address] PCP - General Specialist 08/12/19 documented as of this encounter
--- OUTSIDE RECORDS SUMMARY | 2025-03-14 13:51 | XMS_ITS | Encounter Summary ---
Author Organization [facility] Address [address] [place] [address] Care Team Providers Care Solution Design Engineer Name Role Phone Areli Gurrola MD Primary Care Provider Encounter Details Date Type Department Care Team (Latest Contact Info) Description 06/07/2000 Outpatient Historical [facility] [address] [place] [address] Trell York MD [address] [place] [phone] Lumbago (Primary Dx); Open wound of foot except toe(s) alone, without mention of complication Social History Tobacco Use Types Packs/Day Years Used Date Smoking Tobacco: Never Assessed Comments Unknown Sex and Gender Information Value Date Recorded Sex Assigned at Not on file Legal Sex Female 3:40 AM INCOMING INSPECTOR Gender Identity Not on file Sexual [...] documented as of this encounter Care Teams Solution Design Engineer Relationship Specialty Start Date End Date Areli Gurrola MD [address] [facility] [address] PCP - General Specialist 08/12/19 documented as of this encounter
--- OUTSIDE RECORDS SUMMARY | 2025-03-14 13:51 | XMS_ITS | Encounter Summary ---
Author Organization [facility] Address [address] [place] [address] Care Team Providers Care Cooling Tower Operator Name Role Phone Areli uGrrola MD Primary Care Provider Encounter Details Date Type Department Care Team (Late st Contact Info) Description 05/23/1999 Outpatient Historical [facility] [address] [facility] [address] [place] [address] Trell Hines MD [address] [place] [address] Carpal tunnel syndrome (Primary Dx) Social History Tobacco Use Types Packs/Day Years Used Date Smoking Tobacco: Never Assessed Comments Unknown Sex and Gender Information Value Date Recorded Sex Assigned at Not on file Legal Sex Female 3:40 AM SPARK PLUG ASSEMBLER Gender Identity Not on file Sexual [...] documented as of this encounter Care Teams Cooling Tower Operator Relationship Specialty Start Date End Date Areli Gurrola MD [address] [place] [address] PCP - General Specialist 08/12/19 documented as of this encounter
--- OUTSIDE RECORDS SUMMARY | 2025-03-14 13:51 | XMS_ITS | Encounter Summary ---
Author Organization [facility] Address [address] [place] [address] Care Team Providers Care Banquet Director Name Role Phone Areli Gurrola MD Primary Care Provider Encounter Details Date Type Department Care Team (Latest Contact Info) Description 10/20/1999 Outpatient Historical [facility] Joseph Ramos MD [address] [place] [address] Carpal tunnel syndrome (Primary Dx) Social History Tobacco Use Types Packs/Day Years Used Date Smoking Tobacco: Never Assessed Comments Unknown Sex and Gender Information Value Date Recorded Sex Assigned at Not on file Legal Sex Female 3:40 AM CHILLING HOOD OPERATOR Gender Identity Not on file Sexual [...] as of this encounter Care Teams Banquet Director Relationship Specialty Start Date End Date Areli Gurrola MD [address] [facility] [place] [address] PCP - General Specialist 08/12/19 documented as of this encounter
--- OUTSIDE RECORDS SUMMARY | 2025-03-14 13:51 | XMS_ITS | Encounter Summary ---
Author Organization [facility] Address [address] [facility] Attn: [place] [address] Care Team Providers Care Tray Drier Name Role Phone Areli Gurrola MD Primary Care Provider Encounter Details Date Type Department Care Team (Late st Contact Info) Description 03/15/1999 Outpatient Historical Non-Staff, Physician NO ADDRESS ON FILE Social History Tobacco Use Types Packs/Day Years Used Date Smoking Tobacco: Never Assessed Comments Unknown Sex and Gender Information Value Date Recorded Sex Assigned at Not on file Legal Sex Female 3:40 AM SANDFILL OPERATOR SURFACE Gender Identity Not on file Sexual Orientation Not on file documented as of this encounter Plan of Treatment Not on file documented as of this encounter Visit Diagnoses Not on filedocumented in this encounter Additional Health Concerns Infection Onset Date Last Indicated Resolved Time R/O COVID-19 01/31/2020 01/31/2020 02/02/2020 10:3 2 AM CDT documented as of this encounter Care Teams Tray Drier Relationship Specialty Start Date End Date Areli Gurrola MD [address] [facility] [place] [address] PCP - General Specialist 08/12/19 documented as of this encounter
--- OUTSIDE RECORDS SUMMARY | 2025-03-14 13:51 | XMS_ITS | Encounter Summary ---
Author Organization [facility] Address [address] [place] [address] Care Team Providers Care Ore Crushing Dust Collector Name Role Phone Areli Gurrola MD Primary Care Provider Encounter Details Date Type Department Care Team (Late st Contact Info) Description 04/14/1999 Outpatient Historical [facility] Social History Tobacco Use Types Packs/Day Years Used Date Smoking Tobacco: Never Assessed Comments Unknown Sex and Gender Information Value Date Recorded Sex Assigned at Not on file Legal Sex Female 3:40 AM BUILDING DRAFTING OFFICER Gender Identity Not on file Sexual Orientation Not on file documented as of this encounter Plan of Treatment Not on file documented as of this encounter Visit Diagnoses Not on filedocumented in this encounter Additional Health Concerns Infection Onset Date Last Indicated Resolved Time R/O COVID-19 01/31/2020 01/31/2020 02/02/2020 10:3 2 AM CDT documented as of this encounter Care Teams Ore Crushing Dust Collector Relationship Specialty Start Date End Date Areli Gurrola MD [address] [place] [address] PCP - General Specialist 08/12/19 documented as of this encounter
--- OUTSIDE RECORDS SUMMARY | 2025-03-14 13:51 | XMS_ITS | Encounter Summary ---
Author Organization [facility] Address [address] [place] [address] Care Team Providers Care Director Call Name Role Phone Areli Gurrola MD Primary Care Provider Encounter Details Date Type Department Care Team (Latest Contact Info) Description 05/03/1999 Outpatient Historical [facility] [address] [place] [address] [place], Gibran Lynn MD [address] [place] [address] Cramp of limb (Primary Dx); Contracture of hand joint Social History Tobacco Use Types Packs/Day Years Used Date Smoking Tobacco: Never Assessed Comments Unknown Sex and Gender Information Value Date Recorded Sex Assigned at Not on file Legal Sex Female 3:40 AM DINING ROOM ATTENDANT Gender Identity Not on file Sexual [...] as of this encounter Care Teams Director Call Relationship Specialty Start Date End Date Areli Gurrola MD [address] [place] [address] PCP - General Specialist 08/12/19 documented as of this encounter
--- OUTSIDE RECORDS SUMMARY | 2025-03-14 13:51 | XMS_ITS | Encounter Summary ---
Author Organization [facility] Address [address] [facility] Attn: [place] [address] Care Team Providers Care Wastewater Treatment Plant Chemist Name Role Phone Areli Gurrola MD Primary [...] on file Legal Sex Female 3:40 AM RAIL SIGNAL MECHANIC Gender Identity Not on file Sexual Orientation Not on file documented as of this encounter Plan of Treatment Not on file documented as of this encounter Visit Diagnoses Not on filedocumented in this encounter Additional Health Concerns Infection Onset Date Last Indicated Resolved Time R/O COVID-19 01/31/2020 01/31/2020 02/02/2020 10:3 2 AM CDT documented as of this encounter Care Teams Wastewater Treatment Plant Chemist Relationship Specialty Start Date End Date Areli Gurrola MD [address] [facility] [place] [address] PCP - General Specialist 08/12/19 documented as of this encounter
--- OUTSIDE RECORDS SUMMARY | 2025-03-14 13:51 | XMS_ITS | Encounter Summary ---
Author Organization [facility] Address [address] [place] [address] Care Team Providers Care Local Area Network Administrator Name Role Phone Areli Gurrola MD Primary Care Provider Encounter Details Date Type Department Care Team (Latest Contact Info) Description 09/08/[address] [facility] [address] [place] [address] Trell York MD [address] [place] [phone] Lumbago (Primary Dx); Obesity, unspecified Social History Tobacco Use Types Packs/Day Years Used Date Smoking Tobacco: Never Assessed Comments Unknown Sex and Gender Information Value Date Recorded Sex Assigned at Not on file Legal Sex Female 3:40 AM VEGETABLE TRIMMER Gender Identity Not on file Sexual [...] documented as of this encounter Care Teams Local Area Network Administrator Relationship Specialty Start Date End Date Areli Gurrola MD [address] [facility] [place] [address] PCP - General Specialist 08/12/19 documented as of this encounter
--- OUTSIDE RECORDS SUMMARY | 2025-03-14 13:51 | XMS_ITS | Encounter Summary ---
Author Organization [facility] Address [address] [place] [address] Care Team Providers Care Pulp Mill Supervisor Name Role Phone Areli Gurrola MD Primary Care Provider Encounter Details Date Type Department Care Team (Late st Contact Info) Description 04/14/1999 Outpatient Historical [facility] Social History Tobacco Use Types Packs/Day Years Used Date Smoking Tobacco: Never Assessed Comments Unknown Sex and Gender Information Value Date Recorded Sex Assigned at Not on file Legal Sex Female 3:40 AM HANDKERCHIEF CUTTER Gender Identity Not on file Sexual Orientation Not on file documented as of this encounter Plan of Treatment Not on file documented as of this encounter Visit Diagnoses Not on filedocumented in this encounter Additional Health Concerns Infection Onset Date Last Indicated Resolved Time R/O COVID-19 01/31/2020 01/31/2020 02/02/2020 10:3 2 AM CDT documented as of this encounter Care Teams Pulp Mill Supervisor Relationship Specialty Start Date End Date Areli Gurrola MD [address] [place] [address] PCP - General Specialist 08/12/19 documented as of this encounter
--- OUTSIDE RECORDS SUMMARY | 2025-03-14 13:51 | XMS_ITS | Encounter Summary ---
Author Organization [facility] Address [address] [place] [address] Care Team Providers Care Fry Cook Name Role Phone Areli Gurrola MD Primary Care Provider Encounter Details Date Type Department Care Team (Latest Contact Info) Description 08/18/1999 Outpatient Historical [facility] Joseph Ramos MD [address] [place] [address] Pain in joint, hand (Primary Dx) Social History Tobacco Use Types Packs/Day Years Used Date Smoking Tobacco: Never Assessed Comments Unknown Sex and Gender Information Value Date Recorded Sex Assigned at Not on file Legal Sex Female 3:40 AM CANE PILER Gender Identity Not on file Sexual [...] documented as of this encounter Care Teams Fry Cook Relationship Specialty Start Date End Date Areli Gurrola MD [address] [facility] [place] [address] PCP - General Specialist 08/12/19 documented as of this encounter
--- OUTSIDE RECORDS SUMMARY | 2025-03-14 13:51 | XMS_ITS | Encounter Summary ---
Author Organization [facility] Address [address] [place] [address] Care Team Providers Care Bowling Alley Attendant Name Role Phone Areli Gurrola MD Primary Care Provider Encounter Details Date Type Department Care Team (Latest Contact Info) Description 06/08/1999 Outpatient Historical [facility] [address] [place] [address] Trell York MD [address] [place] [phone] Carpal tunnel syndrome (Primary Dx); Sprain of neck; Obesity, unspecified Social History Tobacco Use Types Packs/Day Years Used Date Smoking Tobacco: Never Assessed Comments Unknown Sex and Gender Information Value Date Recorded Sex Assigned at Not on file Legal Sex Female 3:40 AM RECORD LABEL INTERNSHIP Gender Identity Not on file Sexual Orientation [...] as of this encounter Care Teams Bowling Alley Attendant Relationship Specialty Start Date End Date Areli Gurrola MD [address] [facility] [place] [address] PCP - General Specialist 08/12/19 documented as of this encounter
--- OUTSIDE RECORDS SUMMARY | 2025-03-14 13:51 | XMS_ITS | Encounter Summary ---
Author Organization [facility] Address [address] [place] [address] Care Team Providers Care Roustabout Head Name Role Phone Areli Gurrola MD Primary Care Provider Encounter Details Date Type Department Care Team (Latest Contact Info) Description 01/07/2001 Outpatient Historical [facility] [address] [place] [address] Trell York MD [address] [place] [phone] Unspecified disorder of female genital organs (Primary Dx); Cervicalgia; Lumbago Social History Tobacco Use Types Packs/Day Years Used Date Smoking Tobacco: Never Assessed Comments Unknown Sex and Gender Information Value Date Recorded Sex Assigned at Not on file Legal Sex Female 

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
--- OUTSIDE RECORDS SUMMARY | 2025-03-14 13:51 | XMS_ITS | Encounter Summary ---
Author Organization [facility] Address [address] [facility] Attn: [place] [address] Care Team Providers Care Correspondence Review Clerk Name Role Phone Areli Gurrola MD [...] on file Legal Sex Female 3:40 AM PREPRESS PROOFER Gender Identity Not on file Sexual Orientation Not on file documented as of this encounter Plan of Treatment Not on file documented as of this encounter Visit Diagnoses Not on filedocumented in this encounter Additional Health Concerns Infection Onset Date Last Indicated Resolved Time R/O COVID-19 01/31/2020 01/31/2020 02/02/2020 10:3 2 AM CDT documented as of this encounter Care Teams Correspondence Review Clerk Relationship Specialty Start Date End Date Areli Gurrola MD [address] [facility] [place] [address] PCP - General Specialist 08/12/19 documented as of this encounter
--- OUTSIDE RECORDS SUMMARY | 2025-03-14 13:51 | XMS_ITS | Encounter Summary ---
Author Organization [facility] Address [address] [facility] [address] [place]: [place] [address] Care Team Providers Care Materials Recycler Name Role Phone Areli Gurrola MD Primary Care Provider Encounter Details Date Type Department Care Team (Late st Contact Info) Description 06/06/2001 Outpatient Historical [place], Trell Pascual MD [address] [place] [phone] Social History Tobacco Use Types Packs/Day Years Used Date Smoking Tobacco: Never Assessed Comments Unknown Sex and Gender Information Value Date Recorded Sex Assigned at Not on file Legal Sex Female 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 STORE MANAGER Gender Identity Not on file Sexual Orientation Not on file documented as of this encounter Plan of Treatment Not on file documented as of this encounter Visit Diagnoses Not on filedocumented in this encounter Additional Health Concerns Infection Onset Date Last Indicated Resolved Time R/O COVID-19 01/31/2020 01/31/2020 02/02/2020 10:3 2 AM CDT documented as of this encounter Care Teams Materials Recycler Relationship Specialty Start Date End Date Areli Gurrola MD [address] [place] [address] PCP - General Specialist 08/12/19 documented as of this encounter
--- OUTSIDE RECORDS SUMMARY | 2025-03-14 13:51 | XMS_ITS | Encounter Summary ---
Author Organization [facility] Address [address] [place] [address] Care Team Providers Care Manager Diabetes Name Role Phone Areli Gurrola MD Primary Care Provider Encounter Details Date Type Department Care Team (Latest Contact Info) Description 03/14/2000 Outpatient [facility] [address] [place] [address] Trell York MD [address] [place] [phone] Unspecified disorder of female genital organs (Primary Dx); Lumbago Social History Tobacco Use Types Packs/Day Years Used Date Smoking Tobacco: Never Assessed Comments Unknown Sex and Gender Information Value Date Recorded Sex Assigned at Not on file Legal Sex Female 3:[address] DRIVER Gender Identity Not on file Sexual [...] as of this encounter Care Teams Manager Diabetes Relationship Specialty Start Date End Date Areli Gurrola MD [address] [facility] [place] [address] PCP - General Specialist 08/12/19 documented as of this encounter
--- OUTSIDE RECORDS SUMMARY | 2025-03-14 13:51 | XMS_ITS | Encounter Summary ---
Author Organization [facility] Address [address] [place] [address] Care Team Providers Care Foam Rubber Fabricator Name Role Phone Areli Gurrola MD Primary Care Provider Encounter Details Date Type Department Care Team (Late st Contact Info) Description 03/16/1999 Outpatient Historical [facility] Social History Tobacco Use Types Packs/Day Years Used Date Smoking Tobacco: Never Assessed Comments Unknown Sex and Gender Information Value Date Recorded Sex Assigned at Not on file Legal Sex Female 3:40 AM PIT STEWARD Gender Identity Not on file Sexual Orientation Not on file documented as of this encounter Plan of Treatment Not on file documented as of this encounter Visit Diagnoses Not on filedocumented in this encounter Additional Health Concerns Infection Onset Date Last Indicated Resolved Time R/O COVID-19 01/31/2020 01/31/2020 02/02/2020 10:3 2 AM CDT documented as of this encounter Care Teams Foam Rubber Fabricator Relationship Specialty Start Date End Date Areli Gurrola MD [address] [place] [address] PCP - General Specialist 08/12/19 documented as of this encounter
--- OUTSIDE RECORDS SUMMARY | 2025-03-14 13:51 | XMS_ITS | Encounter Summary ---
Author Organization [facility] Address [address] [place] [address] Care Team Providers Care Media Center Director School Name Role Phone Areli Gurrola MD Primary Care Provider Encounter Details Date Type Department Care Team (Late st Contact Info) Description 03/28/1999 Outpatient Historical HIS [facility] Social History Tobacco Use Types Packs/Day Years Used Date Smoking Tobacco: Never Assessed Comments Unknown Sex and Gender Information Value Date Recorded Sex Assigned at Not on file Legal Sex Female 3:40 AM OUTREACH SPECIALIST Gender Identity Not on file Sexual Orientation Not on file documented as of this encounter Plan of Treatment Not on file documented as of this encounter Visit Diagnoses Not on filedocumented in this encounter Additional Health Concerns Infection Onset Date Last Indicated Resolved Time R/O COVID-19 01/31/2020 01/31/2020 02/02/2020 10:3 2 AM CDT documented as of this encounter Care Teams Media Center Director School Relationship Specialty Start Date End Date Areli Gurrola MD [address] [place] [address] PCP - General Specialist 08/12/19 documented as of this encounter
--- OUTSIDE RECORDS SUMMARY | 2025-03-14 13:51 | XMS_ITS | Encounter Summary ---
Author Organization [facility] Address [address] [place] [address] Care Team Providers Care Butter Grader Name Role Phone Areli Gurrola MD Primary Care Provider Encounter Details Date Type Department Care Team (Late st Contact Info) Description 06/11/2001 Outpatient Historical [facility] Gen Spec Surg [address] [place] [address] Social History Tobacco Use Types Packs/Day Years Used Date Smoking Tobacco: Never Assessed Comments Unknown Sex and Gender Information Value Date Recorded Sex Assigned at Not on file Legal Sex Female 3:40 AM BRIDGE MAINTENANCE WORKER Gender Identity Not on file Sexual Orientation Not on file documented as of this encounter Plan of Treatment Not on file documented as of this encounter Visit Diagnoses Not on filedocumented in this encounter Additional Health Concerns Infection Onset Date Last Indicated Resolved Time R/O COVID-19 01/31/2020 01/31/2020 02/02/2020 10:3 2 AM CDT documented as of this encounter Care Teams Butter Grader Relationship Specialty Start Date End Date Areli Gurrola MD [address] [place] [address] PCP - General Specialist 08/12/19 documented as of this encounter
--- OUTSIDE RECORDS SUMMARY | 2025-03-14 13:51 | XMS_ITS | Encounter Summary ---
Author Organization [facility] Address [address] [facility] Attn: [place] [address] Care Team Providers Care General Ledger Accountant Name Role Phone Areli Gurrola MD Primary Care Provider Encounter Details Date Type Department Care Team (Late st Contact Info) Description 11/16/1999 Outpatient Historical Joseph Ramos MD [address] [place] [address] Social History Tobacco Use Types Packs/Day Years Used Date Smoking Tobacco: Never Assessed Comments Unknown Sex and Gender Information Value Date Recorded Sex Assigned at Not on file Legal Sex Female 3:40 AM OFFICE RN Gender Identity Not on file Sexual Orientation Not on file documented as of this encounter Plan of Treatment Not on file documented as of this encounter Visit Diagnoses Not on filedocumented in this encounter Additional Health Concerns Infection Onset Date Last Indicated Resolved Time R/O COVID-19 01/31/2020 01/31/2020 02/02/2020 10:3 2 AM CDT documented as of this encounter Care Teams General Ledger Accountant Relationship Specialty Start Date End Date Areli Gurrola MD [address] [facility] [place] [address] PCP - General Specialist 08/12/19 documented as of this encounter
--- OUTSIDE RECORDS SUMMARY | 2025-03-14 13:51 | XMS_ITS | Encounter Summary ---
Author Organization [facility] Address [address] [place] [address] Care Team Providers Care Osha Inspector Name Role Phone Areli Gurrola MD Primary Care Provider Encounter Details Date Type Department Care Team (Latest Contact Info) Description 05/09/[address]patient [address] [facility] [address] [place] [address] Trell York MD [address] [place] [phone] Cervical spinal stenosis (Primary Dx); Contusion of elbow Social History Tobacco Use Types Packs/Day Years Used Date Smoking Tobacco: Never Assessed Comments Unknown Sex and Gender Information Value Date Recorded Sex Assigned at Not on file Legal Sex Female 3:40 AM PRINCIPAL PROGRAMMER Gender Identity Not on file Sexual [...] documented as of this encounter Care Teams Osha Inspector Relationship Specialty Start Date End Date Areli Gurrola MD [address] [place] [address] PCP - General Specialist 08/12/19 documented as of this encounter
--- OUTSIDE RECORDS SUMMARY | 2025-03-14 13:51 | XMS_ITS | Encounter Summary ---
Author Organization [facility] Address [address] [place] [address] Care Team Providers Care Child Care Name Role Phone Areli Gurrola MD Primary Care Provider Encounter Details Date Type Department Care Team (Latest Contact Info) Description 03/27/2001 Outpatient Historical [facility] [address] [place] [address] Trell York MD [address] [place] [phone] CERVICALGIA (Primary Dx); NEUROTIC DEPRESSION; LUMBAGO Social [...] documented as of this encounter Care Teams Child Care Relationship Specialty Start Date End Date Areli Gurrola MD [address] [place] [address] PCP - General Specialist 08/12/19 documented as of this encounter
--- OUTSIDE RECORDS SUMMARY | 2025-03-14 13:51 | XMS_ITS | Encounter Summary ---
Author Organization [facility] Address [address] [place] [address] Care Team Providers Care Ampoule Filler And Sealer Name Role Phone Areli Gurrola MD Primary Care Provider Encounter Details Date Type Department Care Team (Latest Contact Info) Description 04/11/2006 Outpatient Historical [facility] [address] [place] [address] Trell York MD [address] [place] [phone] Unspecified Essential Hypertension (Primary Dx); Dysthymic Disorder; Insomnia, Unspecified; Mononeuritis of Unspecified Site Social History Tobacco Use Types Packs/Day Years Used Date Smoking Tobacco: Never Assessed Comments Unknown Sex and Gender Information Value Date Recorded Sex Assigned at Not on file Legal Sex Female 3:40 AM HEALTH AND NUTRITION SPECIALIST Gender Identity Not on file Sexual [...] documented as of this encounter Care Teams Ampoule Filler And Sealer Relationship Specialty Start Date End Date Areli Gurrola MD [address] [place] [address] PCP - General Specialist 08/12/19 documented as of this encounter
--- OUTSIDE RECORDS SUMMARY | 2025-03-14 13:51 | XMS_ITS | Encounter Summary ---
Author Organization [facility] Address [address] [place] [address] Care Team Providers Care Security Installation Technician Name Role Phone Areli Gurrola MD Primary Care Provider Encounter Details Date Type Department Care Team (Latest Contact Info) Description 03/23/1999 Outpatient [facility] [place] [address] [place] [address] [place], Gibran Lynn MD [address] [place] [address] Unspecified viral infection, in conditions [...] file Legal Sex Female 3:40 AM PUBLIC ADDRESS SYSTEM INSTALLER Gender Identity Not on file Sexual [...] documented as of this encounter Care Teams Security Installation Technician Relationship Specialty Start Date End Date Areli Gurrola MD [address] [place] [address] PCP - General Specialist 08/12/19 documented as of this encounter
--- OUTSIDE RECORDS SUMMARY | 2025-03-14 13:51 | XMS_ITS | Encounter Summary ---
Author Organization [facility] Address [address] [place] [address] Care Team Providers Care First Assistant Manager Name Role Phone Areli Gurrola MD Primary Care Provider Encounter Details Date Type Department Care Team (Latest Contact Info) Description 11/28/[address] [facility] [address] [place] [address] Trell York MD [address] [place] [phone] Lumbago (Primary Dx) Social History Tobacco Use Types Packs/Day Years Used Date Smoking Tobacco: Never Assessed Comments Unknown Sex and Gender Information Value Date Recorded Sex Assigned at Not on file Legal Sex Female 3:40 AM MARKETING DIRECTOR ASSISTED LIVING Gender Identity Not on file Sexual Orientation Not on file documented as of this encounter Plan of Treatment Not on file documented as of this encounter Visit Diagnoses Diagnosis Lumbago- Primary documented in this encounter Additional Health Concerns Infection Onset Date Last Indicated Resolved Time R/O COVID-19 01/31/2020 01/31/2020 02/02/2020 10:3 2 AM CDT documented as of this encounter Care Teams First Assistant Manager Relationship Specialty Start Date End Date Areli Gurrola MD [address] [facility] [place] [address] PCP - General Specialist 08/12/19 documented as of this encounter
--- OUTSIDE RECORDS SUMMARY | 2025-03-14 13:51 | XMS_ITS | Encounter Summary ---
Author Organization [facility] Address [address] [place] [address] Care Team Providers Care Safety Specialist Name Role Phone Areli Gurrola MD Primary Care Provider Encounter Details Date Type Department Care Team (Latest Contact Info) Description 04/23/2000 Outpatient [facility] [address] [place] [address] Trell York MD [address] [place] [phone] Cervicalgia (Primary Dx); Other convulsions Social History Tobacco Use Types Packs/Day Years Used Date Smoking Tobacco: Never Assessed Comments Unknown Sex and Gender Information Value Date Recorded Sex Assigned at Not on file Legal Sex Female 3:40 AM POWDER PRESS OPERATOR Gender Identity Not on file [...] as of this encounter Care Teams Safety Specialist Relationship Specialty Start Date End Date Areli Gurrola MD [address] [facility] [place] [address] PCP - General Specialist 08/12/19 documented as of this encounter
--- OUTSIDE RECORDS SUMMARY | 2025-03-14 13:51 | XMS_ITS | Encounter Summary ---
Author Organization [facility] Address [address] [place] [address] Care Team Providers Care Casino Games Dealer Name Role Phone Areli Gurrola MD Primary Care Provider Encounter Details Date Type Department Care Team (Latest Contact Info) Description 02/21/2000 Outpatient Historical [facility] [address] [place] [address] Trell York MD [address] [place] [phone] Stricture of cervix (Primary Dx); Lumbago Social History Tobacco Use Types Packs/Day Years Used Date Smoking Tobacco: Never Assessed Comments Unknown Sex and Gender Information Value Date Recorded Sex Assigned at Not on file Legal Sex Female 3:40 AM NEW MEDIA STRATEGIST Gender Identity Not on file Sexual [...] as of this encounter Care Teams Casino Games Dealer Relationship Specialty Start Date End Date Areli Gurrola MD [address] [place] [address] PCP - General Specialist 08/12/19 documented as of this encounter
--- OUTSIDE RECORDS SUMMARY | 2025-03-14 13:51 | XMS_ITS | Encounter Summary ---
Author Organization [facility] Address [address] [facility] Attn: [place] [address] Care Team Providers Care Adjunct Communications Faculty Member Name Role Phone Areli Gurrola [...] on file Legal Sex Female 3:40 AM CHURN OPERATOR Gender Identity Not on file Sexual Orientation Not on file documented as of this encounter Plan of Treatment Not on file documented as of this encounter Visit Diagnoses Not on filedocumented in this encounter Additional Health Concerns Infection Onset Date Last Indicated Resolved Time R/O COVID-19 01/31/2020 01/31/2020 02/02/2020 10:3 2 AM CDT documented as of this encounter Care Teams Adjunct Communications Faculty Member Relationship Specialty Start Date End Date Areli Gurrola MD [address] [facility] [place] [address] PCP - General Specialist 08/12/19 documented as of this encounter
--- OUTSIDE RECORDS SUMMARY | 2025-03-14 13:51 | XMS_ITS | Encounter Summary ---
Author Organization [facility] Address [address] [facility] Attn: [place] [address] Care Team Providers Care Assistant Grocery Store Manager Name Role Phone Areli Gurrola MD Primary Care Provider Encounter Details Date Type Department Care Team (Late st Contact Info) Description 08/19/1999 Outpatient Historical Joseph Ramos MD [address] [place] [address] Social History Tobacco Use Types Packs/Day Years Used Date Smoking Tobacco: Never Assessed Comments Unknown Sex and Gender Information Value Date Recorded Sex Assigned at Not on file Legal Sex Female 3:40 AM NITRATE OPERATOR Gender Identity Not on file Sexual Orientation Not on file documented as of this encounter Plan of Treatment Not on file documented as of this encounter Visit Diagnoses Not on filedocumented in this encounter Additional Health Concerns Infection Onset Date Last Indicated Resolved Time R/O COVID-19 01/31/2020 01/31/2020 02/02/2020 10:3 2 AM CDT documented as of this encounter Care Teams Assistant Grocery Store Manager Relationship Specialty Start Date End Date Areli Gurrola MD [address] [facility] [place] [address] PCP - General Specialist 08/12/19 documented as of this encounter
--- OUTSIDE RECORDS SUMMARY | 2025-03-14 13:51 | XMS_ITS | Encounter Summary ---
Author Organization [facility] Address [address] [place] [address] Care Team Providers Care Personal Clothing Laundry Aide Name Role Phone Areli Gurrola MD Primary Care Provider Encounter Details Date Type Department Care Team (Latest Contact Info) Description 08/09/1999 Outpatient Historical [facility] [address] [place] [address] Trell York MD [address] [place] [phone] Stricture of cervix (Primary Dx) Social History Tobacco Use Types Packs/Day Years Used Date Smoking Tobacco: Never Assessed Comments Unknown Sex and Gender Information Value Date Recorded Sex Assigned at Not on file Legal Sex Female 3:40 AM TASSEL SNIPPER Gender Identity Not on file Sexual Orientation [...] as of this encounter Care Teams Personal Clothing Laundry Aide Relationship Specialty Start Date End Date Areli Gurrola MD [address] [facility] [place] [place] [phone] PCP - General Specialist 08/12/19 documented as of this encounter
--- OUTSIDE RECORDS SUMMARY | 2025-03-14 13:52 | XMS_ITS | Encounter Summary ---
Author Organization [facility] Address [address] [place] [address] Care Team Providers Care Food And Drink Factory Workers Name Role Phone Areli Gurrola MD Primary [...] on file Legal Sex Female 3:40 AM BIOPHYSICS PROFESSOR Gender Identity Not on file Sexual [...] as of this encounter Care Teams Food And Drink Factory Workers Relationship Specialty Start Date End Date Areli Gurrola MD [address] [place] [address] PCP - General Specialist 08/12/19 documented as of this encounter
--- OUTSIDE RECORDS SUMMARY | 2025-03-14 13:52 | XMS_ITS | Encounter Summary ---
Author Organization [facility] Address [address] [place] [address] Care Team Providers Care Corporate Quality Manager Name Role Phone Areli Gurrola MD Primary Care Provider Encounter Details Date Type Department Care Team (Latest Contact Info) Description 01/11/2004 Outpatient Historical [facility] [address] [place] [address] Trell York MD [address] [place] [phone] CERVICALGIA (Primary Dx); DYSTHYMIC DISORDER Social History Tobacco Use Types Packs/Day Years Used Date Smoking Tobacco: Never Assessed Comments Unknown Sex and Gender Information Value Date Recorded Sex Assigned at Not on file Legal Sex Female 3:40 AM SHEARER OPERATOR Gender Identity Not on file Sexual [...] as of this encounter Care Teams Corporate Quality Manager Relationship Specialty Start Date End Date Areli Gurrola MD [address] [place] [phone] PCP - General Specialist 08/12/19 documented as of this encounter
--- OUTSIDE RECORDS SUMMARY | 2025-03-14 13:52 | XMS_ITS | Encounter Summary ---
Author Organization [facility] Address [address] [place] [address] Care Team Providers Care Social Welfare Clerk Name Role Phone Areli Gurrola MD Primary Care Provider Encounter Details Date Type Department Care Team (Late st Contact Info) Description 03/31/1999 Outpatient Historical [facility] Social History Tobacco Use Types Packs/Day Years Used Date Smoking Tobacco: Never Assessed Comments Unknown Sex and Gender Information Value Date Recorded Sex Assigned at Not on file Legal Sex Female 3:40 AM AGRICULTURAL EXTENSION OFFICER Gender Identity Not on file Sexual Orientation Not on file documented as of this encounter Plan of Treatment Not on file documented as of this encounter Visit Diagnoses Not on filedocumented in this encounter Additional Health Concerns Infection Onset Date Last Indicated Resolved Time R/O COVID-19 01/31/2020 01/31/2020 02/02/2020 10:3 2 AM CDT documented as of this encounter Care Teams Social Welfare Clerk Relationship Specialty Start Date End Date Areli Gurrola MD [address] [place] [address] PCP - General Specialist 08/12/19 documented as of this encounter
--- OUTSIDE RECORDS SUMMARY | 2025-03-14 13:52 | XMS_ITS | Encounter Summary ---
Author Organization [facility] Address [address] [place] [address] Care Team Providers Care Paper Folder Name Role Phone Areli Gurrola MD Primary Care Provider Encounter Details Date Type Department Care Team (Late st Contact Info) Description 07/07/2004 Outpatient Historical [facility] Imaging Services [facility] [place] [address] [address] [address] Social History Tobacco Use Types Packs/Day Years Used Date Smoking Tobacco: Never Assessed Comments Unknown Sex and Gender Information Value Date Recorded Sex Assigned at Not on file Legal Sex Female 3:40 AM GROCERY STORE CLERK Gender Identity Not on file Sexual Orientation Not on file documented as of this encounter Plan of Treatment Not on file documented as of this encounter Visit Diagnoses Not on filedocumented in this encounter Additional Health Concerns Infection Onset Date Last Indicated Resolved Time R/O COVID-19 01/31/2020 01/31/2020 02/02/2020 10:3 2 AM CDT documented as of this encounter Care Teams Paper Folder Relationship Specialty Start Date End Date Areli Gurrola MD [address] [place] [address] PCP - General Specialist 08/12/19 documented as of this encounter
--- OUTSIDE RECORDS SUMMARY | 2025-03-14 13:52 | XMS_ITS | Encounter Summary ---
Author Organization [facility] Address [address] [place] [address] Care Team Providers Care Overnight Caregiver Name Role Phone Areli Gurrola MD Primary Care Provider Encounter Details Date Type Department Care Team (Latest Contact Info) Description 10/09/2002 Outpatient Historical [facility] [place] [address] [place] [address] Gordon Cabral MD NO ADDRESS ON FILE Excessive menstruation (Primary Dx) Social History Tobacco Use Types Packs/Day Years Used Date Smoking Tobacco: Never Assessed Comments Unknown Sex and Gender Information Value Date Recorded Sex Assigned at Not on file Legal Sex Female 3:40 AM DULSER Gender Identity Not on file Sexual Orientation [...] documented as of this encounter Care Teams Overnight Caregiver Relationship Specialty Start Date End Date Areli Gurrola MD [address] [place] [address] PCP - General Specialist 08/12/19 documented as of this encounter
--- OUTSIDE RECORDS SUMMARY | 2025-03-14 13:52 | XMS_ITS | Encounter Summary ---
Author Organization [facility] Address [address] [place] [address] Care Team Providers Care Sales Vice President Name Role Phone Areli Gurrola MD Primary Care Provider Encounter Details Date Type Department Care Team (Latest Contact Info) Description 03/06/2005 Outpatient Historical [facility] [address] [place] [address] Trell York MD [address] [place] [phone] DENTAL DISORDER NOS (Primary Dx); CERVICALGIA; LUMBAGO; DYSTHYMIC DISORDER Social History Tobacco Use Types Packs/Day Years Used Date Smoking Tobacco: Never Assessed Comments Unknown Sex and Gender Information Value Date Recorded Sex Assigned at Not on file Legal Sex Female 3:40 AM SNOW SHOVELER Gender Identity Not on file Sexual [...] as of this encounter Care Teams Sales Vice President Relationship Specialty Start Date End Date Areli Gurrola MD [address] [facility] [place] [address] PCP - General Specialist 08/12/19 documented as of this encounter
--- OUTSIDE RECORDS SUMMARY | 2025-03-14 13:52 | XMS_ITS | Encounter Summary ---
Author Organization [facility] Address [address] [place] [address] Care Team Providers Care Water Analyst Name Role Phone Areli Gurrola MD [...] file Legal Sex Female 3:40 AM SUPERVISOR LAST MODEL DEPARTMENT Gender Identity Not on file Sexual [...] as of this encounter Care Teams Water Analyst Relationship Specialty Start Date End Date Areli Gurrola MD [address] [place] [address] PCP - General Specialist 08/12/19 documented as of this encounter
--- OUTSIDE RECORDS SUMMARY | 2025-03-14 13:52 | XMS_ITS | Encounter Summary ---
Author Organization [facility] Address [address] [place] [address] Care Team Providers Care Academic Program Specialist Name Role Phone Areli Gurrola MD Primary Care Provider Encounter Details Date Type Department Care Team (Latest Contact Info) Description 09/09/2003 Outpatient Historical [facility] [address] [place] [address] Trell York MD [address] [place] [phone] CERVICALGIA (Primary Dx) Social History Tobacco Use Types Packs/Day Years Used Date Smoking Tobacco: Never Assessed Comments Unknown Sex and Gender Information Value Date Recorded Sex Assigned at Not on file Legal Sex Female 3:40 AM FORESTRY SUPERVISOR Gender Identity Not on file Sexual Orientation Not on file documented as of this encounter Plan of Treatment Not on file documented as of this encounter Visit Diagnoses Diagnosis Cervicalgia- Primary documented in this encounter Additional Health Concerns Infection Onset Date Last Indicated Resolved Time R/O COVID-19 01/31/2020 01/31/2020 02/02/2020 10:3 2 AM CDT documented as of this encounter Care Teams Academic Program Specialist Relationship Specialty Start Date End Date Areli Gurrola MD [address] [facility] [place] [place] [address] PCP - General Specialist 08/12/19 documented as of this encounter
--- OUTSIDE RECORDS SUMMARY | 2025-03-14 13:52 | XMS_ITS | Encounter Summary ---
Author Organization [facility] Address [address] [place] [address] Care Team Providers Care Celebrity Chef Entrepreneur Media Personality Name Role Phone Areli Gurrola MD Primary Care Provider Encounter Details Date Type Department Care Team (Latest Contact Info) Description 10/16/2002 Outpatient [facility] [address] [place] [address] Gordon Cabral MD NO ADDRESS ON FILE PREOP EXAM OTHER SPECIFIED (Primary Dx); Excessive menstruation Social History Tobacco Use Types Packs/Day Years Used Date Smoking Tobacco: Never Assessed Comments Unknown Sex and Gender Information Value Date Recorded Sex Assigned at Not on file Legal Sex Female 3:40 AM SHAMPOO PERSON Gender Identity Not on file Sexual [...] documented as of this encounter Care Teams Celebrity Chef Entrepreneur Media Personality Relationship Specialty Start Date End Date Areli Gurrola MD [address] [facility] [place] [address] PCP - General Specialist 08/12/19 documented as of this encounter
--- OUTSIDE RECORDS SUMMARY | 2025-03-14 13:52 | XMS_ITS | Encounter Summary ---
Author Organization [facility] Address [address] [place] [address] Care Team Providers Care Aeronautical Test Engineer Name Role Phone Areli Gurrola MD Primary Care Provider Encounter Details Date Type Department Care Team (Latest Contact Info) Description 07/05/1998 Outpatient Historical [facility] Charli Perez MD NO ADDRESS ON FILE Other specified aftercare following surgery (Primary Dx) Social History Tobacco Use Types Packs/Day Years Used Date Smoking Tobacco: Never Assessed Comments Unknown Sex and Gender Information Value Date Recorded Sex Assigned at Not on file Legal Sex Female 3:40 AM DJANGO DEVELOPER Gender Identity Not on file Sexual [...] documented as of this encounter Care Teams Aeronautical Test Engineer Relationship Specialty Start Date End Date Areli Gurrola MD [address] [place] [address] PCP - General Specialist 08/12/19 documented as of this encounter
--- OUTSIDE RECORDS SUMMARY | 2025-03-14 13:52 | XMS_ITS | Encounter Summary ---
Author Organization [facility] Address [address] [place] [address] Care Team Providers Care Flag Signalman Name Role Phone Areli Gurrola MD Primary Care Provider Encounter Details Date Type Department Care Team (Late st Contact Info) Description 04/11/1999 Outpatient Historical HIS [facility] Social History Tobacco Use Types Packs/Day Years Used Date Smoking Tobacco: Never Assessed Comments Unknown Sex and Gender Information Value Date Recorded Sex Assigned at Not on file Legal Sex Female 3:40 AM WIDE AREA NETWORK ADMINISTRATOR Gender Identity Not on file Sexual Orientation Not on file documented as of this encounter Plan of Treatment Not on file documented as of this encounter Visit Diagnoses Not on filedocumented in this encounter Additional Health Concerns Infection Onset Date Last Indicated Resolved Time R/O COVID-19 01/31/2020 01/31/2020 02/02/2020 10:3 2 AM CDT documented as of this encounter Care Teams Flag Signalman Relationship Specialty Start Date End Date Areli Gurrola MD [address] [place] [address] PCP - General Specialist 08/12/19 documented as of this encounter
--- OUTSIDE RECORDS SUMMARY | 2025-03-14 13:52 | XMS_ITS | Encounter Summary ---
Author Organization [facility] Address [address] [place] [address] Care Team Providers Care Signals Intelligence Analyst Name Role Phone Areli Gurrola MD Primary Care Provider Encounter Details Date Type Department Care Team (Late st Contact Info) Description 10/27/2002 Emergency [facility] Emergency Department [address] [place] [address] Cira Archibald MD NO ADDRESS ON FILE FEMALE GENITAL SYMPTOMS NOS (Primary Dx) Social History Tobacco Use Types Packs/Day Years Used Date Smoking Tobacco: Never Assessed Comments Unknown Sex and Gender Information Value Date Recorded Sex Assigned at Not on file Legal Sex Female 3:40 AM WEEKEND RECEPTIONIST Gender Identity Not on file Sexual Orientation [...] documented as of this encounter Care Teams Signals Intelligence Analyst Relationship Specialty Start Date End Date Areli Gurrola MD [address] [place] [address] PCP - General Specialist 08/12/19 documented as of this encounter
--- OUTSIDE RECORDS SUMMARY | 2025-03-14 13:52 | XMS_ITS | Encounter Summary ---
Author Organization [facility] Address [address] Attn: [place] [address] Care Team Providers Care Powder Hand Name Role Phone Areli Gurrola MD Primary Care Provider Encounter Details Date Type Department Care Team (Late st Contact Info) Description 03/12/1999 Outpatient Historical [place], Gibran Lynn MD [address] [facility] [address] [place] [phone] Social History Tobacco Use Types Packs/Day Years Used Date Smoking Tobacco: Never Assessed Comments Unknown Sex and Gender Information Value Date Recorded Sex Assigned at Not on file Legal Sex Female 3:40 AM HEAD ATHLETIC TRAINER Gender Identity Not on file Sexual Orientation Not on file documented as of this encounter Plan of Treatment Not on file documented as of this encounter Visit Diagnoses Not on filedocumented in this encounter Additional Health Concerns Infection Onset Date Last Indicated Resolved Time R/O COVID-19 01/31/2020 01/31/2020 02/02/2020 10:3 2 AM CDT documented as of this encounter Care Teams Powder Hand Relationship Specialty Start Date End Date Areli Gurrola MD [address] [facility] [address] [place] [address] PCP - General Specialist 08/12/19 documented as of this encounter
--- OUTSIDE RECORDS SUMMARY | 2025-03-14 13:52 | XMS_ITS | Encounter Summary ---
Author Organization [facility] Address [address] [place] [address] Care Team Providers Care Reserve Operator Name Role Phone Areli Gurrola MD Primary Care Provider Encounter Details Date Type Department Care Team (Latest Contact Info) Description 10/11/2005 Outpatient Historical [facility] [address] [place] [address] Trell York MD [address] [place] [phone] Dysthymic Disorder (Primary Dx); Lumbago Social History Tobacco Use Types Packs/Day Years Used Date Smoking Tobacco: Never Assessed Comments Unknown Sex and Gender Information Value Date Recorded Sex Assigned at Not on file Legal Sex Female 3:40 AM ELDER COUNSELOR Gender Identity Not on file Sexual [...] documented as of this encounter Care Teams Reserve Operator Relationship Specialty Start Date End Date Areli Gurrola MD [address] [facility] [place] [address] PCP - General Specialist 08/12/19 documented as of this encounter
--- OUTSIDE RECORDS SUMMARY | 2025-03-14 13:52 | XMS_ITS | Encounter Summary ---
Author Organization [facility] Address [address] [place] [address] Care Team Providers Care Transfer Station Operator Name Role Phone Areli Gurrola MD Primary Care Provider Encounter Details Date Type Department Care Team (Late st Contact Info) Description 04/11/1999 Outpatient Historical HIS [facility] Social History Tobacco Use Types Packs/Day Years Used Date Smoking Tobacco: Never Assessed Comments Unknown Sex and Gender Information Value Date Recorded Sex Assigned at Not on file Legal Sex Female 3:40 AM CENTRAL OFFICE WORKER Gender Identity Not on file Sexual Orientation Not on file documented as of this encounter Plan of Treatment Not on file documented as of this encounter Visit Diagnoses Not on filedocumented in this encounter Additional Health Concerns Infection Onset Date Last Indicated Resolved Time R/O COVID-19 01/31/2020 01/31/2020 02/02/2020 10:3 2 AM CDT documented as of this encounter Care Teams Transfer Station Operator Relationship Specialty Start Date End Date Areli Gurrola MD [address] [place] [address] PCP - General Specialist 08/12/19 documented as of this encounter
--- OUTSIDE RECORDS SUMMARY | 2025-03-14 13:52 | XMS_ITS | Encounter Summary ---
Author Organization [facility] Address [address] [place] [address] Care Team Providers Care Derrick Helper Name Role Phone Areli Gurrola MD Primary Care Provider Encounter Details Date Type Department Care Team (Latest Contact Info) Description 06/04/1998 Outpatient Historical HIS [facility] Charli Perez MD NO ADDRESS ON FILE Open wound of forehead (Primary Dx) Social History Tobacco Use Types Packs/Day Years Used Date Smoking Tobacco: Never Assessed Comments Unknown Sex and Gender Information Value Date Recorded Sex Assigned at Not on file Legal Sex Female 3:40 AM CHART CALCULATOR Gender Identity Not on file Sexual Orientation [...] documented as of this encounter Care Teams Derrick Helper Relationship Specialty Start Date End Date Areli Gurrola MD [address] [place] [address] PCP - General Specialist 08/12/19 documented as of this encounter
--- OUTSIDE RECORDS SUMMARY | 2025-03-14 13:52 | XMS_ITS | Encounter Summary ---
Author Organization [facility] Address [address] [place] [address] Care Team Providers Care M1 Armor Crewman Name Role Phone Areli Gurrola MD Primary Care Provider Encounter Details Date Type Department Care Team (Late st Contact Info) Description 04/07/1999 Outpatient Historical HIS [facility] Social History Tobacco Use Types Packs/Day Years Used Date Smoking Tobacco: Never Assessed Comments Unknown Sex and Gender Information Value Date Recorded Sex Assigned at Not on file Legal Sex Female 3:40 AM MARINE ENGINEER Gender Identity Not on file Sexual Orientation Not on file documented as of this encounter Plan of Treatment Not on file documented as of this encounter Visit Diagnoses Not on filedocumented in this encounter Additional Health Concerns Infection Onset Date Last Indicated Resolved Time R/O COVID-19 01/31/2020 01/31/2020 02/02/2020 10:3 2 AM CDT documented as of this encounter Care Teams M1 Armor Crewman Relationship Specialty Start Date End Date Areli Gurrola MD [address] [place] [address] PCP - General Specialist 08/12/19 documented as of this encounter
--- OUTSIDE RECORDS SUMMARY | 2025-03-14 13:52 | XMS_ITS | Encounter Summary ---
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
--- OUTSIDE RECORDS SUMMARY | 2025-03-14 13:52 | XMS_ITS | Encounter Summary ---
Author Organization [facility] Address [address] [place] [address] Care Team Providers Care Fur Stretcher Name Role Phone Areli Gurrola MD Primary Care Provider Encounter Details Date Type Department Care Team (Latest Contact Info) Description 05/20/[address] 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 Gender Identity Not on file Sexual Orientation Not on file documented as of this encounter Plan of Treatment Not on file documented as of this encounter Visit Diagnoses Diagnosis Acute bronchitis- Primary documented in this encounter Additional Health Concerns Infection Onset Date Last Indicated Resolved Time R/O COVID-19 01/31/2020 01/31/2020 02/02/2020 10:3 2 AM CDT documented as of this encounter Care Teams Fur Stretcher Relationship Specialty Start Date End Date Arlei Gurrola MD [address] [facility] [place] [address] PCP - General Specialist 08/12/19 documented as of this encounter
--- OUTSIDE RECORDS SUMMARY | 2025-03-14 13:52 | XMS_ITS | Encounter Summary ---
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
--- OUTSIDE RECORDS SUMMARY | 2025-03-14 13:52 | XMS_ITS | Encounter Summary ---
Author Organization [facility] Address [address] [place] [address] Care Team Providers Care Production Honing Machine Operator Name Role Phone Areli Gurrola MD Primary Care Provider Encounter Details Date Type Department Care Team (Latest Contact Info) Description 07/07/2004 Outpatient Historical [facility] [place] [address] [place] [address] Trell York MD [address] [place] [phone] CERVICAL DISC DISPLACMNT (Primary Dx) Social History Tobacco Use Types Packs/Day Years Used Date Smoking Tobacco: Never Assessed Comments Unknown Sex and Gender Information Value Date Recorded Sex Assigned at Not on file Legal Sex Female 3:40 AM FINANCIAL SECRETARY Gender Identity Not on file Sexual [...] as of this encounter Care Teams Production Honing Machine Operator Relationship Specialty Start Date End Date Areli Gurrola MD [address] [facility] [place] [address] PCP - General Specialist 08/12/19 documented as of this encounter
--- OUTSIDE RECORDS SUMMARY | 2025-03-14 13:52 | XMS_ITS | Encounter Summary ---
Author Organization [facility] Address [address] [place] [address] Care Team Providers Care Special Warfare Boat Operator Name Role Phone Areli Gurrola MD Primary Care Provider Encounter Details Date Type Department Care Team (Latest Contact Info) Description 02/02/1999 Outpatient Historical [facility] [address] [place] [address] Alum[place], Gibran Lynn MD [address] [place] [address] Sprain and strain of other specified sites of shoulder and upper arm (Primary Dx); Hx musculoskletl dis NEC Social History Tobacco Use Types Packs/Day Years Used Date Smoking Tobacco: Never Assessed Comments Unknown Sex and Gender Information Value Date Recorded Sex Assigned at Not on file Legal Sex Female 3:40 AM QUALITY ASSURANCE CLERK Gender Identity Not on file Sexual [...] as of this encounter Care Teams Special Warfare Boat Operator Relationship Specialty Start Date End Date Areli Gurrola MD [address] [place] [address] PCP - General Specialist 08/12/19 documented as of this encounter
--- OUTSIDE RECORDS SUMMARY | 2025-03-14 13:52 | XMS_ITS | Encounter Summary ---
Author Organization [facility] Address [address] [place] [address] Care Team Providers Care Corporate Trainer Name Role Phone Areli Gurrola MD Primary Care Provider Encounter Details Date Type Department Care Team (Latest Contact Info) Description 10/09/2002 Outpatient [facility] [address] [place] [address] Gordon Cabral MD NO ADDRESS ON FILE Excessive menstruation (Primary Dx) Social History Tobacco Use Types Packs/Day Years Used Date Smoking Tobacco: Never Assessed Comments Unknown Sex and Gender Information Value Date Recorded Sex Assigned at Not on file Legal Sex Female 3:40 AM WEASAND TRIMMER Gender Identity Not on file Sexual [...] as of this encounter Care Teams Corporate Trainer Relationship Specialty Start Date End Date Areli Gurrola MD [address] [facility] [place] [address] PCP - General Specialist 08/12/19 documented as of this encounter
--- OUTSIDE RECORDS SUMMARY | 2025-03-14 13:52 | XMS_ITS | Encounter Summary ---
Author Organization [facility] Address [address] [place] [address] Care Team Providers Care Health Care Coordinator Name Role Phone Areli Gurrola MD Primary Care Provider Encounter Details Date Type Department Care Team (Latest Contact Info) Description 09/14/2004 Outpatient Historical [facility] [address] [place] [address] Trell York MD [address] [place] [phone] DYSTHYMIC DISORDER (Primary Dx); CERVICALGIA; LUMBAGO Social History Tobacco Use Types Packs/Day Years Used Date Smoking Tobacco: Never Assessed Comments Unknown Sex and Gender Information Value Date Recorded Sex Assigned at Not on file Legal Sex Female 3:40 AM PEDIATRIC LPN Gender Identity Not on file Sexual Orientation [...] of this encounter Care Teams Health Care Coordinator Relationship Specialty Start Date End Date Areli Gurrola MD [address] [facility] [place] [address] PCP - General Specialist 08/12/19 documented as of this encounter
--- OUTSIDE RECORDS SUMMARY | 2025-03-14 13:52 | XMS_ITS | Encounter Summary ---
Author Organization [facility] Address [address] [place] [address] Care Team Providers Care Vmware Consultant Name Role Phone Areli Gurrola MD Primary Care Provider Encounter Details Date Type Department Care Team (Latest Contact Info) Description 10/20/2002 Outpatient Historical [facility] [place] [address] [place] [address] [place] [address] Gordon Cabral MD NO ADDRESS ON FILE PREOP EXAM OTHER SPECIFIED (Primary Dx) Social History Tobacco Use Types Packs/Day Years Used Date Smoking Tobacco: Never Assessed Comments Unknown Sex and Gender Information Value Date Recorded Sex Assigned at Not on file Legal Sex Female 3:40 AM FAN MAIL CLERK Gender Identity Not on file [...] documented as of this encounter Care Teams Vmware Consultant Relationship Specialty Start Date End Date Areli Gurrola MD [address] [place] [address] PCP - General Specialist 08/12/19 documented as of this encounter
--- OUTSIDE RECORDS SUMMARY | 2025-03-14 13:52 | XMS_ITS | Encounter Summary ---
Author Organization [facility] Address [address] [place] [address] Care Team Providers Care Induction Heat Treater Name Role Phone Areli Gurrola MD Primary Care Provider Encounter Details Date Type Department Care Team (Latest Contact Info) Description 07/19/1998 Outpatient Historical HIS [facility] PLASTIC [facility] Charli Perez MD NO ADDRESS ON FILE Scar condition and fibrosis of skin (Primary Dx) Social History Tobacco Use Types Packs/Day Years Used Date Smoking Tobacco: Never Assessed Comments Unknown Sex and Gender Information Value Date Recorded Sex Assigned at Not on file Legal Sex Female 3:40 AM PHOTO CARTOGRAPHER Gender Identity Not on file Sexual Orientation [...] documented as of this encounter Care Teams Induction Heat Treater Relationship Specialty Start Date End Date Areli Gurrola MD [address] [place] [address] PCP - General Specialist 08/12/19 documented as of this encounter
--- OUTSIDE RECORDS SUMMARY | 2025-03-14 13:52 | XMS_ITS | Encounter Summary ---
Author Organization [facility] Address [address] [place] [address] Care Team Providers Care Tack Coverer Name Role Phone Areli Gurrola MD Primary Care Provider Encounter Details Date Type Department Care Team (Late st Contact Info) Description 04/05/1999 Outpatient Historical HIS [facility] Social History Tobacco Use Types Packs/Day Years Used Date Smoking Tobacco: Never Assessed Comments Unknown Sex and Gender Information Value Date Recorded Sex Assigned at Not on file Legal Sex Female 3:40 AM FLEECER Gender Identity Not on file Sexual Orientation Not on file documented as of this encounter Plan of Treatment Not on file documented as of this encounter Visit Diagnoses Not on filedocumented in this encounter Additional Health Concerns Infection Onset Date Last Indicated Resolved Time R/O COVID-19 01/31/2020 01/31/2020 02/02/2020 10:3 2 AM CDT documented as of this encounter Care Teams Tack Coverer Relationship Specialty Start Date End Date Areli Gurrola MD [address] [place] [address] PCP - General Specialist 08/12/19 documented as of this encounter
--- OUTSIDE RECORDS SUMMARY | 2025-03-14 13:52 | XMS_ITS | Encounter Summary ---
Author Organization [facility] Address [address] [place] [address] Care Team Providers Care Knotting Machine Operator Portable Name Role Phone Areli Gurrola MD Primary Care Provider Encounter Details Date Type Department Care Team (Latest Contact Info) Description 10/14/2002 Outpatient Historical [facility] [address] [place] [address] Trell York MD [address] [place] [phone] ACUTE URI NOS (Primary Dx); COUGH Social History Tobacco Use Types Packs/Day Years Used Date Smoking Tobacco: Never Assessed Comments Unknown Sex and Gender Information Value Date Recorded Sex Assigned at Not on file Legal Sex Female 3:40 AM PRODUCTION OPERATIONS ENGINEER Gender Identity Not on file Sexual [...] documented as of this encounter Care Teams Knotting Machine Operator Portable Relationship Specialty Start Date End Date Areli Gurrola MD [address] [place] [address] PCP - General Specialist 08/12/19 documented as of this encounter
--- OUTSIDE RECORDS SUMMARY | 2025-03-14 13:52 | XMS_ITS | Encounter Summary ---
Author Organization [facility] Address [address] [place] [address] Care Team Providers Care Upper Trimmer Name Role Phone Areli Gurrola MD Primary Care Provider Encounter Details Date Type Department Care Team (Latest Contact Info) Description 10/03/2002 [facility] [address] [place] [address] Gordon Cabral MD NO ADDRESS ON FILE METRORRHAGIA (Primary Dx) Social History Tobacco Use Types Packs/Day Years Used Date Smoking Tobacco: Never Assessed Comments Unknown Sex and Gender Information Value Date Recorded Sex Assigned at Not on file Legal Sex Female 3: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 KID CLUB 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 Gender Identity Not on file Sexual Orientation Not on file documented as of this encounter Plan of Treatment Not on file documented as of this encounter Visit Diagnoses Diagnosis Metrorrhagia- Primary documented in this encounter Additional Health Concerns Infection Onset Date Last Indicated Resolved Time R/O COVID-19 01/31/2020 01/31/2020 02/02/2020 10:3 2 AM CDT documented as of this encounter Care Teams Upper Trimmer Relationship Specialty Start Date End Date Areli Gurrola MD [address] [facility] [place] [address] PCP - General Specialist 08/12/19 documented as of this encounter
--- OUTSIDE RECORDS SUMMARY | 2025-03-14 13:52 | XMS_ITS | Encounter Summary ---
Author Organization [facility] Address [address] [place] [address] Care Team Providers Care Duplicate Maker Name Role Phone Areli Gurrola MD Primary Care Provider Encounter Details Date Type Department Care Team (Latest Contact Info) Description 09/12/2005 Outpatient Historical [facility] [address] [place] [address] Trell Maria Jr., MD [address] [place] [address] Anxiety State, Unspecified (Primary Dx) Social History Tobacco Use Types Packs/Day Years Used Date Smoking Tobacco: Never Assessed Comments Unknown Sex and Gender Information Value Date Recorded Sex Assigned at Not on file Legal Sex Female 3:40 AM HOUSING MANAGEMENT OFFICER Gender Identity Not on file Sexual [...] documented as of this encounter Care Teams Duplicate Maker Relationship Specialty Start Date End Date Areli Gurrola MD [address] [place] [address] PCP - General Specialist 08/12/19 documented as of this encounter
--- OUTSIDE RECORDS SUMMARY | 2025-03-14 13:52 | XMS_ITS | Encounter Summary ---
Author Organization [facility] Address [address] [place] [address] Care Team Providers Care Border Patrol Officer Name Role Phone Areli Gurrola MD Primary Care Provider Encounter Details Date Type Department Care Team (Latest Contact Info) Description 02/14/1999 Outpatient Historical [facility] [place] [address] [place] [address] Alumno, Gibran Lynn MD [address] [place] [address] Sprain and strain of other specified sites of shoulder and upper arm (Primary Dx) Social History Tobacco Use Types Packs/Day Years Used Date Smoking Tobacco: Never Assessed Comments Unknown Sex and Gender Information Value Date Recorded Sex Assigned at Not on file Legal Sex Female 3:40 AM MEDICAL APPARATUS MODEL MAKER Gender Identity Not on file Sexual [...] documented as of this encounter Care Teams Border Patrol Officer Relationship Specialty Start Date End Date Areli Gurrola MD [address] [place] [address] PCP - General Specialist 08/12/19 documented as of this encounter
--- OUTSIDE RECORDS SUMMARY | 2025-03-14 13:52 | XMS_ITS | Encounter Summary ---
Author Organization [facility] Address [address] [place] [address] Care Team Providers Care Chiller Operator Name Role Phone Areli Gurrola MD Primary Care Provider Encounter Details Date Type Department Care Team (Latest Contact Info) Description 07/06/[address] [facility] [address] [place] [address] Trell [place] MD [address] [place] [phone] DYSTHYMIC DISORDER (Primary Dx); BACKACHE NOS; CERVICALGIA Social History Tobacco Use Types Packs/Day Years Used Date Smoking Tobacco: Never Assessed Comments Unknown Sex and Gender Information Value Date Recorded Sex Assigned at Not on file Legal Sex Female 3:40 AM INVESTMENT EXECUTIVE Gender Identity Not on file Sexual [...] documented as of this encounter Care Teams Chiller Operator Relationship Specialty Start Date End Date Areli Gurrola MD [address] [facility] [place] [place] [address] PCP - General Specialist 08/12/19 documented as of this encounter
--- OUTSIDE RECORDS SUMMARY | 2025-03-14 13:52 | XMS_ITS | Encounter Summary ---
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
--- OUTSIDE RECORDS SUMMARY | 2025-03-14 13:52 | XMS_ITS | Encounter Summary ---
Author Organization [facility] Address [address] [place] [address] Care Team Providers Care Retail Loan Originator Name Role Phone Areli Gurrola MD Primary Care Provider Encounter Details Date Type Department Care Team (Latest Contact Info) Description 04/25/2004 Outpatient Historical [facility] [address] [place] [address] Trell [place] MD [address] [place] [phone] DYSTHYMIC DISORDER (Primary Dx); LUMBAGO; Pain in limb; Inflamed seborr keratos Social History Tobacco Use Types Packs/Day Years Used Date Smoking Tobacco: Never Assessed Comments Unknown Sex and Gender Information Value Date Recorded Sex Assigned at Not on file Legal Sex Female 3:40 AM PHOTOENGRAVING ETCHER Gender Identity Not on file Sexual Orientation [...] as of this encounter Care Teams Retail Loan Originator Relationship Specialty Start Date End Date Areli Gurrola MD [address] [facility] [place] [address] PCP - General Specialist 08/12/19 documented as of this encounter
--- OUTSIDE RECORDS SUMMARY | 2025-03-14 13:52 | XMS_ITS | Encounter Summary ---
Author Organization [facility] Address [address] [place] [address] Care Team Providers Care Kennel Keeper Name Role Phone Areli Gurrola MD Primary Care Provider Encounter Details Date Type Department Care Team (Latest Contact Info) Description 02/20/2005 Outpatient Historical [facility] [address] [place] [address] Trell [place] MD [address] [place] [phone] LUMBAGO (Primary Dx); DYSTHYMIC DISORDER; ANXIETY STATE NOS; CERVICALGIA Social History Tobacco Use Types Packs/Day Years Used Date Smoking Tobacco: Never Assessed Comments Unknown Sex and Gender Information Value Date Recorded Sex Assigned at Not on file Legal Sex Female 3:40 AM DIVING FISHER Gender Identity Not on file Sexual [...] documented as of this encounter Care Teams Kennel Keeper Relationship Specialty Start Date End Date Areli Gurrola MD [address] [place] [address] PCP - General Specialist 08/12/19 documented as of this encounter
--- OUTSIDE RECORDS SUMMARY | 2025-03-14 13:52 | XMS_ITS | Encounter Summary ---
Author Organization [facility] Address [address] [place] [address] Care Team Providers Care Collection Administrator Name Role Phone Areli Gurrola MD Primary Care Provider Encounter Details Date Type Department Care Team (Latest Contact Info) Description 10/28/2002 Outpatient [facility] [place] [address] [place] [address] Gordon Cabral MD NO ADDRESS ON FILE SURGERY FOLLOWUP, UNSPEC (Primary Dx) Social History Tobacco Use Types Packs/Day Years Used Date Smoking Tobacco: Never Assessed Comments Unknown Sex and Gender Information Value Date Recorded Sex Assigned at Not on file Legal Sex Female 3: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 [place] [address] PCP - General Specialist 08/12/19 documented as of this encounter
--- OUTSIDE RECORDS SUMMARY | 2025-03-14 13:52 | XMS_ITS | Encounter Summary ---
Author Organization [facility] Address [address] [place] [address] Care Team Providers Care Kitchen Help Handyman Name Role Phone Areli Gurrola MD Primary Care Provider Encounter Details Date Type Department Care Team (Latest Contact Info) Description 06/22/2003 Outpatient Historical [facility] [address] [place] [address] Trell [place] MD [address] [place] [phone] CHEST PAIN NOS (Primary Dx); ABN INVOLUN MOVEMENT NEC; CERVICALGIA Social History Tobacco Use Types Packs/Day Years Used Date Smoking Tobacco: Never Assessed Comments Unknown Sex and Gender Information Value Date Recorded Sex Assigned at Not on file Legal Sex Female 3:40 AM EPITAXIAL REACTOR OPERATOR Gender Identity Not on file Sexual [...] documented as of this encounter Care Teams Kitchen Help Handyman Relationship Specialty Start Date End Date Areli Gurrola MD [address] [place] [address] PCP - General Specialist 08/12/19 documented as of this encounter
--- OUTSIDE RECORDS SUMMARY | 2025-03-14 13:52 | XMS_ITS | Encounter Summary ---
Author Organization [facility] Address [address] [place] [address] Care Team Providers Care Farm Mechanic Name Role Phone Areli Gurrola MD Primary Care Provider Encounter Details Date Type Department Care Team (Late st Contact Info) Description 05/14/2003 Outpatient Historical [facility] [address] [place] [address] Roman Law, DO [address] [place] [phone] ACUTE SINUSITIS NOS (Primary Dx) Social History Tobacco Use Types Packs/Day Years Used Date Smoking Tobacco: Never Assessed Comments Unknown Sex and Gender Information Value Date Recorded Sex Assigned at Not on file Legal Sex Female 3:40 AM MULTIPLE SPINDLE ROUTER OPERATOR Gender Identity Not on file Sexual [...] documented as of this encounter Care Teams Farm Mechanic Relationship Specialty Start Date End Date Areli Gurrola MD [address] [place] [address] PCP - General Specialist 08/12/19 documented as of this encounter
--- OUTSIDE RECORDS SUMMARY | 2025-03-14 13:52 | XMS_ITS | Encounter Summary ---
Author Organization [facility] Address [address] [place] [address] Care Team Providers Care Chemistry Instructor Name Role Phone Areli Gurrola MD Primary Care Provider Encounter Details Date Type Department Care Team (Late st Contact Info) Description 06/24/2003 Outpatient Historical [facility] [place] [address] [place] [phone] Shayy Landry MD [address] [address] Social History Tobacco Use Types Packs/Day Years Used Date Smoking Tobacco: Never Assessed Comments Unknown Sex and Gender Information Value Date Recorded Sex Assigned at Not on file Legal Sex Female 3:40 AM VIDEO COORDINATOR Gender Identity Not on file Sexual Orientation Not on file documented as of this encounter Plan of Treatment Not on file documented as of this encounter Visit Diagnoses Not on filedocumented in this encounter Additional Health Concerns Infection Onset Date Last Indicated Resolved Time R/O COVID-19 01/31/2020 01/31/2020 02/02/2020 10:3 2 AM CDT documented as of this encounter Care Teams Chemistry Instructor Relationship Specialty Start Date End Date Areli Gurrola MD [address] [facility] [address] PCP - General Specialist 08/12/19 documented as of this encounter
--- OUTSIDE RECORDS SUMMARY | 2025-03-14 13:52 | XMS_ITS | Encounter Summary ---
Author Organization [facility] Address [address] [place] [address] Care Team Providers Care Remedial Teacher Name Role Phone Areli Gurrola MD Primary Care Provider Encounter Details Date Type Department Care Team (Latest Contact Info) Description 03/14/1999 Outpatient [facility] [address] [place] [address] Ti Rondon MD [address] [place] [address] Abdominal pain, unspecified site (Primary Dx); Fever and other physiologic disturbances of temperature regulation; Backache, unspecified Social History Tobacco Use Types Packs/Day Years Used Date Smoking Tobacco: Never Assessed Comments Unknown Sex and Gender Information Value Date Recorded Sex Assigned at Not on file Legal Sex Female 3:40 AM ENGINEERING EQUIPMENT OPERATOR Gender Identity Not on file Sexual [...] documented as of this encounter Care Teams Remedial Teacher Relationship Specialty Start Date End Date Areli Gurrola MD [address] [place] [address] PCP - General Specialist 08/12/19 documented as of this encounter
--- OUTSIDE RECORDS SUMMARY | 2025-03-14 13:52 | XMS_ITS | Encounter Summary ---
Author Organization [facility] Address [address] [place] [address] Care Team Providers Care Survey Cad Technician Name Role Phone Areli Gurrola MD Primary Care Provider Encounter Details Date Type Department Care Team (Latest Contact Info) Description 06/26/2003 Outpatient Historical [facility] Cardiology [facility] [address] [place] [address] Jim [place] [address] [address] [place] [address] PRECORDIAL PAIN (Primary Dx) Social History Tobacco Use Types Packs/Day Years Used Date Smoking Tobacco: Never Assessed Comments Unknown Sex and Gender Information Value Date Recorded Sex Assigned at Not on file Legal Sex Female 3:40 AM OIL DISTRIBUTOR TENDER Gender Identity Not on file Sexual Orientation Not on file documented as of this encounter Plan of Treatment Not on file documented as of this encounter Visit Diagnoses Diagnosis Precordial pain- Primary documented in this encounter Additional Health Concerns Infection Onset Date Last Indicated Resolved Time R/O COVID-19 01/31/2020 01/31/2020 02/02/2020 10:3 2 AM CDT documented as of this encounter Care Teams Survey Cad Technician Relationship Specialty Start Date End Date Areli Gurrola MD [address] [facility] [place] [address] PCP - General Specialist 08/12/19 documented as of this encounter
--- OUTSIDE RECORDS SUMMARY | 2025-03-14 13:52 | XMS_ITS | Encounter Summary ---
Author Organization [facility] Address [address] [place] [address] Care Team Providers Care Hotel Superintendent Name Role Phone Areli Gurrola MD Primary Care Provider Encounter Details Date Type Department Care Team (Latest Contact Info) Description 10/22/2002 Outpatient Historical [facility] Operating Room [address] [place] [address] Gordon Cabral MD NO ADDRESS ON FILE POLYP OF CORPUS UTERI (Primary Dx) Social History Tobacco Use Types Packs/Day Years Used Date Smoking Tobacco: Never Assessed Comments Unknown Sex and Gender Information Value Date Recorded Sex Assigned at Not on file Legal Sex Female 3:40 AM AMMUNITION ASSEMBLY I LABORER Gender Identity Not on file Sexual [...] as of this encounter Care Teams Hotel Superintendent Relationship Specialty Start Date End Date Areli Gurrola MD [address] [place] [address] PCP - General Specialist 08/12/19 documented as of this encounter
--- OUTSIDE RECORDS SUMMARY | 2025-03-14 13:52 | XMS_ITS | Encounter Summary ---
Author Organization [facility] Address [address] [place] [address] Care Team Providers Care Substation Wireman Name Role Phone Areli Gurrola MD Primary Care Provider Encounter Details Date Type Department Care Team (Latest Contact Info) Description 03/09/1999 Outpatient [facility] [place] [address] [place] [address] Alumno, Gibran Lynn MD [address] [place] [address] Sprain and strain of unspecified site of shoulder and upper arm (Primary Dx); Backache, unspecified Social History Tobacco Use Types Packs/Day Years Used Date Smoking Tobacco: Never Assessed Comments Unknown Sex and Gender Information Value Date Recorded Sex Assigned at Not on file Legal Sex Female 3:40 AM ETHICS INSTRUCTOR Gender Identity Not on file Sexual [...] documented as of this encounter Care Teams Substation Wireman Relationship Specialty Start Date End Date Areli Gurrola MD [address] [place] [address] PCP - General Specialist 08/12/19 documented as of this encounter
--- OUTSIDE RECORDS SUMMARY | 2025-03-14 13:52 | XMS_ITS | Encounter Summary ---
Author Organization [facility] Address [address] [place] [address] Care Team Providers Care Bird Raiser Name Role Phone Areli Gurrola MD Primary Care Provider Encounter Details Date Type Department Care Team (Latest Contact Info) Description 02/14/1999 Outpatient Historical [facility] Imaging Services-[facility] [place] [address] [place] [address] AlumnoGibran MD [address] [place] [address] Lumbago (Primary Dx) Social History Tobacco Use Types Packs/Day Years Used Date Smoking Tobacco: Never Assessed Comments Unknown Sex and Gender Information Value Date Recorded Sex Assigned at Not on file Legal Sex Female 3:40 AM MATTRESS PACKER Gender Identity Not on file Sexual Orientation Not on file documented as of this encounter Plan of Treatment Not on file documented as of this encounter Visit Diagnoses Diagnosis Lumbago- Primary documented in this encounter Additional Health Concerns Infection Onset Date Last Indicated Resolved Time R/O COVID-19 01/31/2020 01/31/2020 02/02/2020 10:3 2 AM CDT documented as of this encounter Care Teams Bird Raiser Relationship Specialty Start Date End Date Areli Gurrola MD [address] [place] [address] PCP - General Specialist 08/12/19 documented as of this encounter
--- OUTSIDE RECORDS SUMMARY | 2025-03-14 13:52 | XMS_ITS | Encounter Summary ---
Author Organization [facility] Address [address] [place] [address] Care Team Providers Care Barrel Polisher Inside Name Role Phone Areli Gurrola MD Primary Care Provider Encounter Details Date Type Department Care Team (Late st Contact Info) Description 04/07/1999 Outpatient Historical [facility] Social History Tobacco Use Types Packs/Day Years Used Date Smoking Tobacco: Never Assessed Comments Unknown Sex and Gender Information Value Date Recorded Sex Assigned at Not on file Legal Sex Female 3:40 AM SLUDGE CONTROL OPERATOR Gender Identity Not on file Sexual Orientation Not on file documented as of this encounter Plan of Treatment Not on file documented as of this encounter Visit Diagnoses Not on filedocumented in this encounter Additional Health Concerns Infection Onset Date Last Indicated Resolved Time R/O COVID-19 01/31/2020 01/31/2020 02/02/2020 10:3 2 AM CDT documented as of this encounter Care Teams Barrel Polisher Inside Relationship Specialty Start Date End Date Areli Gurrola MD [address] [place] [address] PCP - General Specialist 08/12/19 documented as of this encounter
--- OUTSIDE RECORDS SUMMARY | 2025-03-14 13:53 | XMS_ITS | Encounter Summary ---
Author Organization [facility] Address [address] [place] [address] Care Team Providers Care Production Control Planner Name Role Phone Areli Gurrola MD Primary Care Provider Encounter Details Date Type Department Care Team (Latest Contact Info) Description 07/30/2002 Outpatient Historical [facility] [address] [place] [address] Trell [place] MD [address] [place] [phone] INSOMNIA NEC (Primary Dx); NEUROTIC DEPRESSION; LUMBAGO Social History Tobacco Use Types Packs/Day Years Used Date Smoking Tobacco: Never Assessed Comments Unknown Sex and Gender Information Value Date Recorded Sex Assigned at Not on file Legal Sex Female 3:40 AM LEAD TECHNICAL ARCHITECT Gender Identity Not on file Sexual [...] as of this encounter Care Teams Production Control Planner Relationship Specialty Start Date End Date Areli Gurrola MD [address] [facility] [place] [address] PCP - General Specialist 08/12/19 documented as of this encounter
--- OUTSIDE RECORDS SUMMARY | 2025-03-14 13:53 | XMS_ITS | Encounter Summary ---
Author Organization [facility] Address [address] [place] [address] Care Team Providers Care Pipe Foreman Name Role Phone Areli Gurrola MD Primary Care Provider Encounter Details Date Type Department Care Team (Latest Contact Info) Description 10/03/2002 [facility] [address] [place] [address] Gordon Cabral MD NO ADDRESS ON FILE MENSTRUAL DISORDER NEC (Primary Dx) Social History Tobacco Use Types Packs/Day Years Used Date Smoking Tobacco: Never Assessed Comments Unknown Sex and Gender Information Value Date Recorded Sex Assigned at Not on file Legal Sex Female 3:40 AM JEWEL FLAT SURFACER Gender Identity Not on file Sexual Orientation [...] as of this encounter Care Teams Pipe Foreman Relationship Specialty Start Date End Date Areli Gurrola MD [address] [facility] [place] [address] PCP - General Specialist 08/12/19 documented as of this encounter
--- OUTSIDE RECORDS SUMMARY | 2025-03-14 13:53 | XMS_ITS | Encounter Summary ---
Author Organization [facility] Address [address] Knight: [place] [address] Care Team Providers Care Pensionholder Information Clerk Name Role Phone Unavailable Primary Care Provider Unavailabl e Encounter Details Date Type Department Care Team (Latest Contact Info) Description 03/08/2025 Travel Social History Tobacco Use Types Packs/Day [...] on file Legal Sex Female 6:21 AM EXPLOSIVES MIXER OPERATOR Gender Identity Not on file Sexual Orientation Not on file documented as of this encounter Plan of Treatment Upcoming Encounters Date Type Department Care Team (Late st Contact Info) Description 06/16/2025 8:30 AM CDT Office Visit [facility] Gastroenterology- [place] [address] [place] [address] Maritza Fournier PA-C [address] [place] [address] documented as of this encounter Visit Diagnoses Not on filedocumented in this encounter
--- OUTSIDE RECORDS SUMMARY | 2025-03-14 13:53 | XMS_ITS | Encounter Summary ---
Author Organization [facility] Address [address] [place] [address] Care Team Providers Care Supervisor Of Research Name Role Phone Areli Gurrola MD Primary Care Provider Encounter Details Date Type Department Care Team (Latest Contact Info) Description 02/05/2003 [facility] [place] [address] [place] [address] Gordon Cabral MD NO ADDRESS ON FILE SURGERY FOLLOWUP, UNSPEC (Primary Dx) Social History Tobacco Use Types Packs/Day Years Used Date Smoking Tobacco: Never Assessed Comments Unknown Sex and Gender Information Value Date Recorded Sex Assigned at Not on file Legal Sex Female 3:40 AM SIGHT EFFECTS SPECIALIST Gender Identity Not on file Sexual [...] as of this encounter Care Teams Supervisor Of Research Relationship Specialty Start Date End Date Areli Gurrola MD [address] [facility] [place] [address] PCP - General Specialist 08/12/19 documented as of this encounter
--- OUTSIDE RECORDS SUMMARY | 2025-03-14 13:53 | XMS_ITS | Encounter Summary ---
Author Organization [facility] Address [address] [place] [address] Care Team Providers Care Quality Reviewer Name Role Phone Areli Gurrola MD Primary Care Provider Encounter Details Date Type Department Care Team (Latest Contact Info) Description 07/29/2001 Outpatient Historical [facility] [address] [place] [address] Trell York MD [address] [place] [phone] COMMON MIGRAINE W/O MENTN INTRACT (Primary Dx); LUMBAGO Social History Tobacco Use Types Packs/Day Years Used Date Smoking Tobacco: Never Assessed Comments Unknown Sex and Gender Information Value Date Recorded Sex Assigned at Not on file Legal Sex Female 3:40 AM LICENSING COORDINATOR Gender Identity Not on file Sexual [...] as of this encounter Care Teams Quality Reviewer Relationship Specialty Start Date End Date Areli Gurrola MD [address] [facility] [place] [address] PCP - General Specialist 08/12/19 documented as of this encounter
--- OUTSIDE RECORDS SUMMARY | 2025-03-14 13:53 | XMS_ITS | Encounter Summary ---
Author Organization [facility] Address [address] [place] [address] Care Team Providers Care Marine Electrician Apprentice Name Role Phone Areli Gurrola MD Primary Care Provider Encounter Details Date Type Department Care Team (Latest Contact Info) Description 03/20/2002 Outpatient Historical [facility] [address] [place] [address] Trell York MD [address] [place] [phone] ESOPHAGITIS, UNSPECIFIED (Primary Dx); CERVICALGIA; UNSPEC CONSTIPATION Social History Tobacco Use Types Packs/Day Years Used Date Smoking Tobacco: Never Assessed Comments Unknown Sex and Gender Information Value Date Recorded Sex Assigned at Not on file Legal Sex Female 3:40 AM SOFTWARE SPECIALIST Gender Identity Not on file Sexual [...] as of this encounter Care Teams Marine Electrician Apprentice Relationship Specialty Start Date End Date Areli Gurrola MD [address] [facility] [place] [place] [address] PCP - General Specialist 08/12/19 documented as of this encounter
--- OUTSIDE RECORDS SUMMARY | 2025-03-14 13:53 | XMS_ITS | Encounter Summary ---
Author Organization [facility] Address [address] [place] [address] Care Team Providers Care Accountant Cost Name Role Phone Areli Gurrola MD Primary Care Provider Encounter Details Date Type Department Care Team (Latest Contact Info) Description 12/18/2002 Outpatient Historical [facility] [address] [place] [address] Gordon Cabral MD NO ADDRESS ON FILE PREOP EXAM OTHER SPECIFIED (Primary Dx) Social History Tobacco Use Types Packs/Day Years Used Date Smoking Tobacco: Never Assessed Comments Unknown Sex and Gender Information Value Date Recorded Sex Assigned at Not on file Legal Sex Female 3:40 AM STRAP SETTER Gender Identity Not on file Sexual [...] documented as of this encounter Care Teams Accountant Cost Relationship Specialty Start Date End Date Areli Gurrola MD [address] [place] [address] PCP - General Specialist 08/12/19 documented as of this encounter
--- OUTSIDE RECORDS SUMMARY | 2025-03-14 13:53 | XMS_ITS | Encounter Summary ---
Author Organization [facility] Address [address] [place] [address] Care Team Providers Care Director Of Product Management Name Role Phone Areli Gurrola MD [...] on file Legal Sex Female 3:40 AM ANIMATION CAMERA OPERATOR Gender Identity Not on file Sexual [...] of this encounter Care Teams Director Of Product Management Relationship Specialty Start Date End Date Areli Gurrola MD [address] [place] [address] PCP - General Specialist 08/12/19 documented as of this encounter
--- OUTSIDE RECORDS SUMMARY | 2025-03-14 13:53 | XMS_ITS | Encounter Summary ---
Author Organization [facility] Address [address] [place] [address] Care Team Providers Care Taxation Consultant Name Role Phone Areli Gurrola MD Primary Care Provider Encounter Details Date Type Department Care Team (Latest Contact Info) Description 03/26/2002 Outpatient Historical [facility] [address] [place] [address] Trell York MD [address] [place] [phone] CERVICALGIA (Primary Dx); ABDOMINAL PAIN UNSPEC SITE Social History Tobacco Use Types Packs/Day Years Used Date Smoking Tobacco: Never Assessed Comments Unknown Sex and Gender Information Value Date Recorded Sex Assigned at Not on file Legal Sex Female 3:40 AM FILTER FILLER Gender Identity Not on file Sexual Orientation [...] MD [address] [facility] [place] [address] PCP - General Specialist 08/12/19 documented as of this encounter
--- OUTSIDE RECORDS SUMMARY | 2025-03-14 13:53 | XMS_ITS | Encounter Summary ---
Author Organization [facility] Address [address] [place] [address] Care Team Providers Care Director Of Dance Name Role Phone Areli Gurrola MD Primary Care Provider Encounter Details Date Type Department Care Team (Latest Contact Info) Description 11/20/2001 Outpatient Historical [facility] [address] [place] [address] Trell York MD [address] [place] [phone] LUMBAGO (Primary Dx); SEBACEOUS CYST Social History Tobacco Use Types Packs/Day Years Used Date Smoking Tobacco: Never Assessed Comments Unknown Sex and Gender Information Value Date Recorded Sex Assigned at Not on file Legal Sex Female 3:40 AM ECHO TECHNICIAN Gender Identity Not on file Sexual [...] of this encounter Care Teams Director Of Dance Relationship Specialty Start Date End Date Areli Gurrola MD [address] [place] [phone] PCP - General Specialist 08/12/19 documented as of this encounter
--- OUTSIDE RECORDS SUMMARY | 2025-03-14 13:53 | XMS_ITS | Encounter Summary ---
Author Organization [facility] Address [address] [place] [address] Care Team Providers Care Medicaid Analyst Name Role Phone Areli Gurrola MD Primary Care Provider Encounter Details Date Type Department Care Team (Latest Contact Info) Description 04/07/2002 Outpatient Historical [facility] [address] [place] [address] Trell York MD [address] [place] [phone] URTICARIA NOS (Primary Dx) Social History Tobacco Use Types Packs/Day Years Used Date Smoking Tobacco: Never Assessed Comments Unknown Sex and Gender Information Value Date Recorded Sex Assigned at Not on file Legal Sex Female 3:40 AM FRONT END ALIGNMENT SPECIALIST Gender Identity Not on file Sexual [...] as of this encounter Care Teams Medicaid Analyst Relationship Specialty Start Date End Date Areli Gurrola MD [address] [facility] [place] [address] PCP - General Specialist 08/12/19 documented as of this encounter
--- OUTSIDE RECORDS SUMMARY | 2025-03-14 13:53 | XMS_ITS | Encounter Summary ---
Author Organization [facility] Address [address] [place] [address] Care Team Providers Care Hospital Aides And Assistants Teacher Name Role Phone Areli Gurrola MD Primary Care Provider Encounter Details Date Type Department Care Team (Latest Contact Info) Description 12/02/2002 Outpatient [facility] [address] [place] [address] Gordon Cabral MD NO ADDRESS ON FILE FEMALE GENITAL SYMPTOMS NOS (Primary Dx) Social History Tobacco Use Types Packs/Day Years Used Date Smoking Tobacco: Never Assessed Comments Unknown Sex and Gender Information Value Date Recorded Sex Assigned at Not on file Legal Sex Female 3:40 AM FIREPOT OPERATOR AND TENDER Gender Identity Not on file Sexual [...] documented as of this encounter Care Teams Hospital Aides And Assistants Teacher Relationship Specialty Start Date End Date Areli Gurrola MD [address] [place] [address] PCP - General Specialist 08/12/19 documented as of this encounter
--- OUTSIDE RECORDS SUMMARY | 2025-03-14 13:53 | XMS_ITS | Encounter Summary ---
Author Organization [facility] Address [address] [place] [address] Care Team Providers Care Radio Repairman Name Role Phone Areli Gurrola MD Primary Care Provider Encounter Details Date Type Department Care Team (Latest Contact Info) Description 10/21/2001 Outpatient Historical [facility] [address] [place] [address] Trell York MD [address] [place] [phone] NEUROTIC DEPRESSION (Primary Dx); LUMBAGO; ACUTE LARYNGOTRACH W OBSTR Social History Tobacco Use Types Packs/Day Years Used Date Smoking Tobacco: Never Assessed Comments Unknown Sex and Gender Information Value Date Recorded Sex Assigned at Not on file Legal Sex Female 3:40 AM THREADING MACHINE FEEDER AUTOMATIC Gender Identity Not on file Sexual [...] as of this encounter Care Teams Radio Repairman Relationship Specialty Start Date End Date Areli Gurrola MD [address] [facility] [place] [address] PCP - General Specialist 08/12/19 documented as of this encounter
--- OUTSIDE RECORDS SUMMARY | 2025-03-14 13:53 | XMS_ITS | Encounter Summary ---
Author Organization [facility] Address [address] [place] [address] Care Team Providers Care Financial Institution Vice President Name Role Phone Areli Gurrola MD Primary Care Provider Encounter Details Date Type Department Care Team (Latest Contact Info) Description 04/21/2003 Outpatient [facility] [place] [address] [place] [address] Gordon Cabral MD NO ADDRESS ON FILE URIN TRACT INFECTION NOS (Primary Dx) Social History Tobacco Use Types Packs/Day Years Used Date Smoking Tobacco: Never Assessed Comments Unknown Sex and Gender Information Value Date Recorded Sex Assigned at Not on file Legal Sex Female 3:40 AM UTILITY SPECIALIST Gender Identity Not on file Sexual [...] documented as of this encounter Care Teams Financial Institution Vice President Relationship Specialty Start Date End Date Areli Gurrola MD [address] [facility] [place] [address] PCP - General Specialist 08/12/19 documented as of this encounter
--- OUTSIDE RECORDS SUMMARY | 2025-03-14 13:53 | XMS_ITS | Encounter Summary ---
Author Organization [facility] Address [address] [place] [address] Care Team Providers Care Evp Managing Director Name Role Phone Areli Gurrola MD Primary Care Provider Encounter Details Date Type Department Care Team (Latest Contact Info) Description 10/31/2002 Outpatient Historical [facility] [place] [address] [place] [address] Gordon Cabral MD NO ADDRESS ON FILE SURGERY FOLLOWUP, UNSPEC (Primary Dx) Social History Tobacco Use Types Packs/Day Years Used Date Smoking Tobacco: Never Assessed Comments Unknown Sex and Gender Information Value Date Recorded Sex Assigned at Not on file Legal Sex Female 3:40 AM FILM DEVELOPER Gender Identity Not on file Sexual [...] documented as of this encounter Care Teams Evp Managing Director Relationship Specialty Start Date End Date Areli Gurrola MD [address] [facility] [place] [address] PCP - General Specialist 08/12/19 documented as of this encounter
--- OUTSIDE RECORDS SUMMARY | 2025-03-14 13:53 | XMS_ITS | Encounter Summary ---
Author Organization [facility] Address [address] [place] [address] Care Team Providers Care Home Stager Name Role Phone Areli Gurrola MD Primary Care Provider Encounter Details Date Type Department Care Team (Late st Contact Info) Description 10/30/[address] [facility] Emergency Department [address] [place] [address] Tomás Jade MD NO ADDRESS ON FILE FEMALE GENITAL SYMPTOMS NOS (Primary Dx) Social History Tobacco Use Types Packs/Day Years Used Date Smoking Tobacco: Never Assessed Comments Unknown Sex and Gender Information Value Date Recorded Sex Assigned at Not on file Legal Sex Female 3:40 AM VICE PROVOST Gender Identity Not on file Sexual Orientation [...] documented as of this encounter Care Teams Home Stager Relationship Specialty Start Date End Date Areli Gurrola MD [address] [place] [address] PCP - General Specialist 08/12/19 documented as of this encounter
--- OUTSIDE RECORDS SUMMARY | 2025-03-14 13:53 | XMS_ITS | Encounter Summary ---
Author Organization [facility] Address [address] [place] [address] Care Team Providers Care Change Manager Name Role Phone Areli Gurrola MD Primary Care Provider Encounter Details Date Type Department Care Team (Late st Contact Info) Description 04/14/2002 Outpatient Historical [facility] [address] [place] [address] Miguelangel Mas, NO ADDRESS ON FILE SPRAIN OF ANKLE NOS (Primary Dx) Social History Tobacco Use Types Packs/Day Years Used Date Smoking Tobacco: Never Assessed Comments Unknown Sex and Gender Information Value Date Recorded Sex Assigned at Not on file Legal 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
--- OUTSIDE RECORDS SUMMARY | 2025-03-14 13:53 | XMS_ITS | Encounter Summary ---
Author Organization [facility] Address [address] [place] [address] Care Team Providers Care Evp Chief Exploration Officer Name Role Phone Areli Gurrola MD Primary Care Provider Encounter Details Date Type Department Care Team (Latest Contact Info) Description 07/16/[address] [facility] [address] [place] [address] Trell York MD [address] [place] [phone] SWELLING OF LIMB (Primary Dx) Social History Tobacco Use Types Packs/Day Years Used Date Smoking Tobacco: Never Assessed Comments Unknown Sex and Gender Information Value Date Recorded Sex Assigned at Not on file Legal Sex Female 3:40 AM TELEMETRY TECH Gender Identity Not on file Sexual [...] as of this encounter Care Teams Evp Chief Exploration Officer Relationship Specialty Start Date End Date Areli Gurrola MD [address] [facility] [place] [address] PCP - General Specialist 08/12/19 documented as of this encounter
--- OUTSIDE RECORDS SUMMARY | 2025-03-14 13:53 | XMS_ITS | Encounter Summary ---
Author Organization [facility] Address [address] [place] [address] Care Team Providers Care Tourist Adviser Name Role Phone Areli Gurrola MD Primary Care Provider Encounter Details Date Type Department Care Team (Latest Contact Info) Description 08/25/[address] 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
--- OUTSIDE RECORDS SUMMARY | 2025-03-14 13:53 | XMS_ITS | Encounter Summary ---
Author Organization [facility] Address [address] [place] [address] Care Team Providers Care Mail Deliverer Name Role Phone Areli Gurrola MD Primary Care Provider Encounter Details Date Type Department Care Team (Latest Contact Info) Description 12/04/2001 Outpatient [facility] [address] [place] [address] Trell York MD [address] [place] [phone] ACUTE BRONCHITIS (Primary Dx); COUGH Social History Tobacco Use Types Packs/Day Years Used Date Smoking Tobacco: Never Assessed Comments Unknown Sex and Gender Information Value Date Recorded Sex Assigned at Not on file Legal Sex Female 3:40 AM CEREAL POPPER Gender Identity Not on file Sexual Orientation [...] as of this encounter Care Teams Mail Deliverer Relationship Specialty Start Date End Date Areli Gurrola MD [address] [facility] [place] [address] PCP - General Specialist 08/12/19 documented as of this encounter
--- OUTSIDE RECORDS SUMMARY | 2025-03-14 13:53 | XMS_ITS | Encounter Summary ---
Author Organization [facility] Address [address] [place] [address] Care Team Providers Care Logistics Engineer Name Role Phone Areli Gurrola MD Primary Care Provider Encounter Details Date Type Department Care Team (Latest Contact Info) Description 07/09/2002 Outpatient Historical [facility] [address] [place] [address] Trell York MD [address] [place] [phone] OTHER MALAISE AND FATIGUE (Primary Dx); CERVICALGIA Social History Tobacco Use Types Packs/Day Years Used Date Smoking Tobacco: Never Assessed Comments Unknown Sex and Gender Information Value Date Recorded Sex Assigned at Not on file Legal Sex Female 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
--- OUTSIDE RECORDS SUMMARY | 2025-03-14 13:53 | XMS_ITS | Encounter Summary ---
Author Organization [facility] Address [address] [place] [address] Care Team Providers Care Nremt Name Role Phone Areli Gurrola MD Primary Care Provider Encounter Details Date Type Department Care Team (Late st Contact Info) Description 04/14/2002 Outpatient Historical [facility] [address] [place] [address] Miguelangel Mas, NO ADDRESS ON FILE JOINT PAIN-ANKLE (Primary Dx) Social History Tobacco Use Types Packs/Day Years Used Date Smoking Tobacco: Never Assessed Comments Unknown Sex and Gender Information Value Date Recorded Sex Assigned at Not on file Legal Sex Female 3:40 AM ADMITTING MANAGER Gender Identity Not on file Sexual [...] documented as of this encounter Care Teams Nremt Relationship Specialty Start Date End Date Areli Gurrola MD [address] [facility] [place] [address] PCP - General Specialist 08/12/19 documented as of this encounter
--- OUTSIDE RECORDS SUMMARY | 2025-03-14 13:53 | XMS_ITS | Encounter Summary ---
Author Organization [facility] Address [address] [place] [address] Care Team Providers Care Press Assistant Name Role Phone Areli Gurrola MD Primary Care Provider Encounter Details Date Type Department Care Team (Latest Contact Info) Description 12/18/2002 Outpatient [facility] [place] [address] [place] [address] Gordon Cabral MD NO ADDRESS ON FILE PREOP EXAM OTHER SPECIFIED (Primary Dx); Excessive menstruation; FEMALE GENITAL SYMPTOMS NOS Social History Tobacco Use Types Packs/Day Years Used Date Smoking Tobacco: Never Assessed Comments Unknown Sex and Gender Information Value Date Recorded Sex Assigned at Not on file Legal Sex Female 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
--- OUTSIDE RECORDS SUMMARY | 2025-03-14 13:53 | XMS_ITS | Encounter Summary ---
Author Organization [facility] Address [address] [place] [address] Care Team Providers Care Mass Communications Instructor Name Role Phone Areli Gurrola MD Primary Care Provider Encounter Details Date Type Department Care Team (Latest Contact Info) Description 08/20/2001 Outpatient Historical [facility] [address] [place] [address] Trell York MD [address] [place] [phone] ACUTE PHARYNGITIS (Primary Dx) Social History Tobacco Use Types Packs/Day Years Used Date Smoking Tobacco: Never Assessed Comments Unknown Sex and Gender Information Value Date Recorded Sex Assigned at Not on file Legal Sex Female 3:40 AM SWING TENDER Gender Identity Not on file Sexual Orientation Not on file documented as of this encounter Plan of Treatment Not on file documented as of this encounter Visit Diagnoses Diagnosis Acute pharyngitis- Primary documented in this encounter Additional Health Concerns Infection Onset Date Last Indicated Resolved Time R/O COVID-19 01/31/2020 01/31/2020 02/02/2020 10:3 2 AM CDT documented as of this encounter Care Teams Mass Communications Instructor Relationship Specialty Start Date End Date Areli Gurrola MD [address] [facility] [place] [address] PCP - General Specialist 08/12/19 documented as of this encounter
--- OUTSIDE RECORDS SUMMARY | 2025-03-14 13:53 | XMS_ITS | Encounter Summary ---
Author Organization [facility] Address [address] [place] [address] Care Team Providers Care Navy Seal Name Role Phone Areli Gurrola MD Primary Care Provider Encounter Details Date Type Department Care Team (Latest Contact Info) Description 01/09/2002 Outpatient Historical [facility] [address] [place] [address] Trell York MD [address] [place] [phone] HEADACHE (Primary Dx); CERVICALGIA Social History Tobacco Use Types Packs/Day Years Used Date Smoking Tobacco: Never Assessed Comments Unknown Sex and Gender Information Value Date Recorded Sex Assigned at Not on file Legal Sex Female 3:40 AM TELESALES CONSULTANT Gender Identity Not on file Sexual [...] documented as of this encounter Care Teams Navy Seal Relationship Specialty Start Date End Date Areli Gurrola MD [address] [place] [address] PCP - General Specialist 08/12/19 documented as of this encounter
--- OUTSIDE RECORDS SUMMARY | 2025-03-14 13:53 | XMS_ITS | Encounter Summary ---
Author Organization [facility] Address [address] [place] [address] Care Team Providers Care Rapid Extractor Operator Name Role Phone Areli Gurrola MD Primary Care Provider Encounter Details Date Type Department Care Team (Latest Contact Info) Description 01/20/2002 Outpatient [facility] [address] [place] [address] Trell York MD [address] [place] [address] NEUROTIC DEPRESSION (Primary Dx); ANXIETY STATE NOS; CERVICALGIA; LUMBAGO Social History Tobacco Use Types Packs/Day Years Used Date Smoking Tobacco: Never Assessed Comments Unknown Sex and Gender Information Value Date Recorded Sex Assigned at Not on file Legal Sex Female 3: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
--- OUTSIDE RECORDS SUMMARY | 2025-03-14 13:53 | XMS_ITS | Encounter Summary ---
Author Organization [facility] Address [address] [place] [address] Care Team Providers Care Electrician Station Assistant Name Role Phone Areli Gurrola MD Primary Care Provider Encounter Details Date Type Department Care Team (Latest Contact Info) Description 04/10/2002 Outpatient Historical 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
--- OUTSIDE RECORDS SUMMARY | 2025-03-14 13:53 | XMS_ITS | Encounter Summary ---
Author Organization [facility] Address [address] [place] [address] Care Team Providers Care Manager Unix Name Role Phone Areli Gurrola MD Primary Care Provider Encounter Details Date Type Department Care Team (Latest Contact Info) Description 05/11/2003 Outpatient Historical [facility] [address] [place] [address] Trell York MD [address] [place] [phone] CERVICALGIA (Primary Dx) Social History Tobacco Use Types Packs/Day Years Used Date Smoking Tobacco: Never Assessed Comments Unknown Sex and Gender Information Value Date Recorded Sex Assigned at Not on file Legal Sex Female 3: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
--- OUTSIDE RECORDS SUMMARY | 2025-03-14 13:53 | XMS_ITS | Encounter Summary ---
Author Organization [facility] Address [address] [place] [address] Care Team Providers Care Reinforced Ironworker Name Role Phone Areli Gurrola MD Primary Care Provider Encounter Details Date Type Department Care Team (Late st Contact Info) Description 06/27/2001 Outpatient Historical [facility] Gen Spec Surg [address] [address] Renan Martinez MD [address] [place] [phone] CHOLELITHIASIS NOS (Primary Dx); SURGERY FOLLOWUP, UNSPEC Social History Tobacco Use Types Packs/Day Years Used Date Smoking Tobacco: Never Assessed Comments Unknown Sex and Gender Information Value Date Recorded Sex Assigned at Not on file Legal Sex Female 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
--- OUTSIDE RECORDS SUMMARY | 2025-03-14 13:53 | XMS_ITS | Encounter Summary ---
Author Organization [facility] Address [address] [place] [address] Care Team Providers Care Financial Sales Assistant Name Role Phone Areli Gurrola MD Primary Care Provider Encounter Details Date Type Department Care Team (Latest Contact Info) Description 11/25/2002 [facility] [address] [place] [address] Gordon Cabral MD NO ADDRESS ON FILE DYSMENORRHEA (Primary Dx) Social History Tobacco Use Types Packs/Day Years Used Date Smoking Tobacco: Never Assessed Comments Unknown Sex and Gender Information Value Date Recorded Sex Assigned at Not on file Legal Sex Female 3:40 AM RIG HAND Gender Identity Not on file Sexual Orientation Not on file documented as of this encounter Plan of Treatment Not on file documented as of this encounter Visit Diagnoses Diagnosis Dysmenorrhea- Primary documented in this encounter Additional Health Concerns Infection Onset Date Last Indicated Resolved Time R/O COVID-19 01/31/2020 01/31/2020 02/02/2020 10:3 2 AM CDT documented as of this encounter Care Teams Financial Sales Assistant Relationship Specialty Start Date End Date Areli Gurrola MD [address] [facility] [place] [address] PCP - General Specialist 08/12/19 documented as of this encounter
--- OUTSIDE RECORDS SUMMARY | 2025-03-14 13:53 | XMS_ITS | Encounter Summary ---
Author Organization [facility] Address [address] [place] [address] Care Team Providers Care Balance Engineer Name Role Phone Areli Gurrola MD Primary Care Provider Encounter Details Date Type Department Care Team (Latest Contact Info) Description 10/01/2002 Outpatient Historical [facility] [address] [place] [address] Trell York MD [address] [place] [phone] ACUTE SINUSITIS NOS (Primary Dx) Social History Tobacco Use Types Packs/Day Years Used Date Smoking Tobacco: Never Assessed Comments Unknown Sex and Gender Information Value Date Recorded Sex Assigned at Not on file Legal Sex Female 3:40 AM MARKETING ANALYTICS ANALYST Gender Identity Not on file Sexual [...] documented as of this encounter Care Teams Balance Engineer Relationship Specialty Start Date End Date Areli Gurrola MD [address] [facility] [place] [address] PCP - General Specialist 08/12/19 documented as of this encounter
--- OUTSIDE RECORDS SUMMARY | 2025-03-14 13:53 | XMS_ITS | Encounter Summary ---
Author Organization [facility] Address [address] [facility] Attn: [place] [address] Care Team Providers Care Yarder Boss Name Role Phone Areli Gurrola MD Primary Care Provider Encounter Details Date Type Department Care Team (Late st Contact Info) Description 07/30/2001 Outpatient Historical [place], Trell Pascual MD [address] [place] [phone] Social History Tobacco Use Types Packs/Day Years Used Date Smoking Tobacco: Never Assessed Comments Unknown Sex and Gender Information Value Date Recorded Sex Assigned at Not on file Legal Sex Female 

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
[2025-03-14] MEDS: morphine 4 mg/mL SDV 1 mL IM (14:04)
[2025-03-14 14:16] LABS: Hematocrit 29.3 % (36-47); Hemoglobin 9.90 g/dL (11.27-16.99); Mean Corpuscular HGB Conc 33.8 g/dL (30-55); Mean Corpuscular Hemoglobin 30.8 pg (27-33); Mean Corpuscular Volume 91.3 fl (85-98); Nucleated Red Blood Cells % 0 %; Platelet Count 84 10^3/cmm (157-399); Red Blood Count 3.21 10^6/uL (3.85-5.65); White Blood Count 5.56 10^3/uL (3.29-11.43)
[2025-03-14 14:29] LABS: INR 1.08 (0.8-1.2); Prothrombin Time 14.80 SECONDS (12.1-14.9)
[2025-03-14 14:35] LABS: Alanine Aminotransferase 23 U/L (0-33); Albumin Level 3.0 g/dL (3.5-5.2); Alkaline Phosphatase 190 U/L (35-105); Anion Gap 14.1 (5-19); Aspartate Amino Transferase 50 U/L (0-32); Blood Urea Nitrogen 13 mg/dL (6-20); Calcium 9.6 mg/dL (8.5-10.5); Carbon Dioxide 23 mmol/L (22-29); Chloride 106 mmol/L (98-107); Globulin 2.8 g/dL (1.3-4.6); Glucose 114 mg/dL (65-115); Lipase 99 U/L (13-60); Osmolality Calculated 287 mOsm/kg (285-295); Potassium 5.1 mmol/L (3.5-5.1); Sodium 138 mmol/L (136-145); Total Protein 5.8 g/dL (6.6-8.7)
[2025-03-14 14:41] VITALS: BP 149/77; PULSE 94; O2SAT 98
== END 2025-03-14 14:54 | disposition home or self-care (01) ==
PROVIDERS: Emergency Provider Emergency Medicine; PCP Physician Assistant
DX: K92.1 Melena (principal); F17.290 Nicotine dependence, other tobacco product, uncomplicated; E11.40 Type 2 diabetes mellitus with diabetic neuropathy, unspecified; I50.9 Heart failure, unspecified
CPT/HCPCS: 80053; 83690; 85025; 85610; 96372; 99284; J2270

== ENCOUNTER 2025-03-23 14:41 | Emergency (ER) | payer MEDICARE, MEDICAID, SELFPAY ==
--- OUTSIDE RECORDS SUMMARY | 2024-02-02 03:00 | XMS_ITS ---
Author Organization [facility] Address [address] [place] [address] Care Team Providers Care Journeyman Wireman Name Role Phone Joseph Lewis MD Primary Care Provider Zane Joiner Unavailable [phone] ELROY BOOTHE Unavailable Unavailable Migration, Provider Unavailable Unavailable REASON FOR VISIT EMR-Luke Encounters Encounter Location Date Provider Diagnosis Migrated_Facility 0 0 02/02/2024 Provider Migration Plan Of Treatment Medication Medication Name Sig Start Date Stop Date Notes Zubsolv 5.7-1.4 mg sublingual tablet, sublingual 1 Tablet Twice a Day 02/20/2019 03/22/2019 *Reorder from [facility] for eRx and Interaction Alerts* Progress Notes * Kay GAMBOA MDOB:1965 (59 yo F)Acc No.[id number]:02/02/2024 Patient: Elva Kay RODRIGUEZ :1965 A ge:58 Y S ex:Female Address:[address], [address] [place] [address] * Refills Stop Zubsolv 5.7-1.4 mg sublingual tablet, sublingual, 1 Tablet Twice a Day Subjective: * Chief Complaints: * E MR-Luke * * Date:
--- OUTSIDE RECORDS SUMMARY | 2024-02-03 03:00 | XMS_ITS ---
Author Organization [facility] Address [address] [place] [address] Care Team Providers Care Janitor Cleaner Name Role Phone Joseph Lewis MD Primary Care Provider Zane Joiner Unavailable [phone] ELROY BOOTHE Unavailable Unavailable Migration, Provider Unavailable [...] * Kay GAMBOA MDOB:1965 (59 yo F)Acc No.[id number]:02/03/2024 Patient: Elva CADEKay BIGGS :1965 A ge:58 Y S ex:Female Address:[address], [address] [place] [address] Subjective: * Chief Complaints: * E MR-Luke [...]
[2024-09-18 15:42] VITALS: BP 147/78; BMI 37.0
--- NOTE | 2025-03-23 14:44 | USCV_ITS ---
Kay Calles Age: 59 Gender: F : 1965 Exam Date: 03/23/2025 15:02 Ordering Phys: Carmela Haro MD Technologist: IRENE Exam Location: [facility] Indication: RLE pain HISTORY: Lower extremity pain. Lower extremity swelling. PROCEDURES: Venous duplex imaging was performed in only the right lower extremity. The following venous structures were evaluated: common femoral vein, profunda vein, proximal portion of the greater saphenous vein, superficial femoral vein, and the popliteal vein. In addition, the posterior tibial and peroneal trunk were evaluated. Serial compression, augmentation maneuvers, and spectral Doppler flow evaluation were performed. FINDINGS: No evidence of DVT seen in any vessel visualized at this time. CONCLUSIONS No evidence of right lower extremity DVT. Casper Morris MD (Electronically Signed) Final Date: 23 March 2025 15:32 S
[2025-03-23 14:46] VITALS: BP 151/112; PULSE 74; RESP 16; TEMP 37.1; O2SAT 100
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
[2025-03-23] MEDS: HYDROcodone-acetaminophen 10-325 mg Tablet 1 TAB PO (15:51)
--- OUTSIDE RECORDS SUMMARY | 2025-03-23 18:21 | XMS_ITS | Encounter Summary ---
Author Organization [facility] Address [address] [place] [address] Care Team Providers Care Jeeper Operator Name Role Phone Areli Gurrola MD Primary Care Provider Encounter Details Date Type Department Care Team (Latest Contact Info) Description 03/27/2001 Outpatient Historical [facility] [address] [place] [address] Trell York MD [address] [place] [phone] CERVICALGIA (Primary Dx); NEUROTIC DEPRESSION; LUMBAGO Social History Tobacco Use Types Packs/Day Years Used Date Smoking Tobacco: Never Assessed Comments Unknown Sex and Gender Information Value Date Recorded Sex Assigned at Not on file Legal 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
--- OUTSIDE RECORDS SUMMARY | 2025-03-23 18:21 | XMS_ITS | Encounter Summary ---
Author Organization [facility] Address [address] [place] [address] Care Team Providers Care Quality Nurse Name Role Phone Areli Gurrola MD Primary Care Provider Encounter Details Date Type Department Care Team (Latest Contact Info) Description 07/27/2000 Outpatient Historical [facility] [address] [place] [address] Trell York MD [address] [place] [phone] Unspecified disorder of female genital organs (Primary Dx); Cervicalgia Social History Tobacco Use Types Packs/Day Years Used Date Smoking Tobacco: Never Assessed Comments Unknown Sex and Gender Information Value Date Recorded Sex Assigned at Not on file 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
--- OUTSIDE RECORDS SUMMARY | 2025-03-23 18:21 | XMS_ITS | Encounter Summary ---
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 Gender Identity Not on file Sexual Orientation Not on file documented as of this encounter Plan of Treatment Not on file documented as of this encounter Visit Diagnoses Not on filedocumented in this encounter Additional Health Concerns Infection Onset Date Last Indicated Resolved Time R/O COVID-19 01/31/2020 01/31/2020 02/02/2020 10:3 2 AM CDT documented as of this encounter Care Teams Butcher Head Relationship Specialty Start Date End Date Areli Gurrola MD [address] [place] [address] PCP - General Specialist 08/12/19 documented as of this encounter
--- OUTSIDE RECORDS SUMMARY | 2025-03-23 18:21 | XMS_ITS | Encounter Summary ---
Author Organization 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
--- OUTSIDE RECORDS SUMMARY | 2025-03-23 18:21 | XMS_ITS | Encounter Summary ---
Author Organization [facility] Address [address] [place] [address] Care Team Providers Care Hand Funnel Coater Name Role Phone Areli Gurrola MD Primary Care Provider Encounter Details Date Type Department Care Team (Latest Contact Info) Description 08/18/1999 Outpatient Historical [facility] Joseph Ramos MD [address] [place] [address] Pain in joint, hand (Primary Dx) Social History Tobacco Use Types Packs/Day Years Used Date Smoking Tobacco: Never Assessed Comments Unknown Sex and Gender Information Value Date Recorded Sex Assigned at Not on file 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
--- OUTSIDE RECORDS SUMMARY | 2025-03-23 18:21 | XMS_ITS | Encounter Summary ---
Author Organization [facility] Address [address] [place] [address] Care Team Providers Care Burial Agent Name Role Phone Areli Gurrola MD Primary Care Provider Encounter Details Date Type Department Care Team (Latest Contact Info) Description 01/30/2000 Outpatient Historical [facility] [address] [place] [address] Trell York MD [address] [place] [phone] Lumbago (Primary Dx) Social History Tobacco Use Types Packs/Day Years Used Date Smoking Tobacco: Never Assessed Comments Unknown Sex and Gender Information Value Date Recorded Sex Assigned at Not on file 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 Gender Identity Not on file Sexual Orientation Not on file documented as of this encounter Plan of Treatment Not on file documented as of this encounter Visit Diagnoses Diagnosis Lumbago- Primary documented in this encounter Additional Health Concerns Infection Onset Date Last Indicated Resolved Time R/O COVID-19 01/31/2020 01/31/2020 02/02/2020 10:3 2 AM CDT documented as of this encounter Care Teams Burial Agent Relationship Specialty Start Date End Date Areli Gurrola MD [address] [facility] [place] [address] PCP - General Specialist 08/12/19 documented as of this encounter
--- OUTSIDE RECORDS SUMMARY | 2025-03-23 18:21 | XMS_ITS | Encounter Summary ---
Author Organization [facility] Address [address] [facility] Attn: [place] [address] Care Team Providers Care Mortgage Collector Name Role Phone Areli Gurrola MD Primary Care Provider Encounter Details Date Type Department Care Team (Late st Contact Info) Description 06/06/2001 Outpatient Historical [facility], Trell Pascual MD [address] [place] [phone] Social History Tobacco Use Types Packs/Day Years Used Date Smoking Tobacco: Never Assessed Comments Unknown Sex and Gender Information Value Date Recorded Sex Assigned at Not on file Legal Sex 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
--- OUTSIDE RECORDS SUMMARY | 2025-03-23 18:21 | XMS_ITS | Encounter Summary ---
Author Organization [facility] Address [address] [place] [address] Care Team Providers Care Brazing Furnace Operator Name Role Phone Areli Gurrola MD Primary Care Provider Encounter Details Date Type Department Care Team (Latest Contact Info) Description 02/21/2000 Outpatient Historical [facility] [address] [place] [address] Trell York MD [address] [place] [phone] Stricture of cervix (Primary Dx); Lumbago Social History Tobacco Use Types Packs/Day Years Used Date Smoking Tobacco: Never Assessed Comments Unknown Sex and Gender Information Value Date Recorded Sex Assigned at Not on file Legal Sex Female 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
--- OUTSIDE RECORDS SUMMARY | 2025-03-23 18:21 | XMS_ITS | Encounter Summary ---
Author Organization [facility] Address [address] [place] [address] Care Team Providers Care Clinical Laboratory Aide Name Role Phone Areli Gurrola MD Primary Care Provider Encounter Details Date Type Department Care Team (Latest Contact Info) Description 11/13/2000 Outpatient Historical [facility] [address] [place] [address] Trell York MD [address] [place] [phone] Insomnia, unspecified (Primary Dx); Lumbago Social History Tobacco Use Types Packs/Day Years Used Date Smoking Tobacco: Never Assessed Comments Unknown Sex and Gender Information Value Date Recorded Sex Assigned at Not on file Legal Sex Female 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
--- OUTSIDE RECORDS SUMMARY | 2025-03-23 18:21 | XMS_ITS | Encounter Summary ---
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 Gender Identity Not on file Sexual Orientation Not on file documented as of this encounter Plan of Treatment Not on file documented as of this encounter Visit Diagnoses Not on filedocumented in this encounter Additional Health Concerns Infection Onset Date Last Indicated Resolved Time R/O COVID-19 01/31/2020 01/31/2020 02/02/2020 10:3 2 AM CDT documented as of this encounter Care Teams Assistant Professor Of Economics Relationship Specialty Start Date End Date Areli Gurrola MD [address] [facility] [address] PCP - General Specialist 08/12/19 documented as of this encounter
--- OUTSIDE RECORDS SUMMARY | 2025-03-23 18:21 | XMS_ITS | Encounter Summary ---
Author Organization [facility] Address [address] [facility] Attn: [place] [phone] Care Team Providers Care Grader Marker Name Role Phone Areli Gurrola MD Primary [...] on file Legal Sex Female 3:40 AM R[employer]ERS [employer]ES LEVERMAN Gender Identity Not on file Sexual Orientation Not on file documented as of this encounter Plan of Treatment Not on file documented as of this encounter Visit Diagnoses Not on filedocumented in this encounter Additional Health Concerns Infection Onset Date Last Indicated Resolved Time R/O COVID-19 01/31/2020 01/31/2020 02/02/2020 10:3 2 AM CDT documented as of this encounter Care Teams Grader Marker Relationship Specialty Start Date End Date Areli Gurrola MD [address] [facility] [place] [address] PCP - General Specialist 08/12/19 documented as of this encounter
--- OUTSIDE RECORDS SUMMARY | 2025-03-23 18:21 | XMS_ITS | Encounter Summary ---
Author Organization [facility] Address [address] [facility] Attn: [place] [address] Care Team Providers Care Pipe Fitter Marine Name Role Phone Areli Gurrola MD Primary [...] on file Legal Sex Female 3:40 AM ELECTRICIAN SUPERVISOR AIRPLANE Gender Identity Not on file Sexual Orientation Not on file documented as of this encounter Plan of Treatment Not on file documented as of this encounter Visit Diagnoses Not on filedocumented in this encounter Additional Health Concerns Infection Onset Date Last Indicated Resolved Time R/O COVID-19 01/31/2020 01/31/2020 02/02/2020 10:3 2 AM CDT documented as of this encounter Care Teams Pipe Fitter Marine Relationship Specialty Start Date End Date Areli Gurrola MD [address] [facility] [place] [address] PCP - General Specialist 08/12/19 documented as of this encounter
--- OUTSIDE RECORDS SUMMARY | 2025-03-23 18:21 | XMS_ITS | Encounter Summary ---
Author Organization [facility] Address [address] [place] [address] Care Team Providers Care Engineering And Scientific Programmer Name Role Phone Areli Gurrola MD Primary Care Provider Encounter Details Date Type Department Care Team (Latest Contact Info) Description 12/27/1999 Outpatient Historical [facility] [address] [place] [address] Trell York MD [address] [place] [phone] Migraine without aura, without mention of intractable [...] as of this encounter Care Teams Engineering And Scientific Programmer Relationship Specialty Start Date End Date Areli Gurrola MD [address] [facility] [place] [address] PCP - General Specialist 08/12/19 documented as of this encounter
--- OUTSIDE RECORDS SUMMARY | 2025-03-23 18:21 | XMS_ITS | Encounter Summary ---
Author Organization [facility] Address [address] [place] [address] Care Team Providers Care Vamper Name Role Phone Areli Gurrola MD Primary Care Provider Encounter Details Date Type Department Care Team (Late st Contact Info) Description 06/11/2001 Outpatient Historical [facility] Gen Spec Surg [address] [place] [address] Social History Tobacco Use Types Packs/Day Years Used Date Smoking Tobacco: Never Assessed Comments Unknown Sex and Gender Information Value Date Recorded Sex Assigned at Not on file Legal Sex Female 3:40 AM COOPERATIVE MANAGER Gender Identity Not on file Sexual Orientation Not on file documented as of this encounter Plan of Treatment Not on file documented as of this encounter Visit Diagnoses Not on filedocumented in this encounter Additional Health Concerns Infection Onset Date Last Indicated Resolved Time R/O COVID-19 01/31/2020 01/31/2020 02/02/2020 10:3 2 AM CDT documented as of this encounter Care Teams Vamper Relationship Specialty Start Date End Date Areli Gurrola MD [address] [place] [address] PCP - General Specialist 08/12/19 documented as of this encounter
--- OUTSIDE RECORDS SUMMARY | 2025-03-23 18:21 | XMS_ITS | Encounter Summary ---
Author Organization [facility] Address [address] [place] [address] Care Team Providers Care Pediatrics Teacher Name Role Phone Areli Gurrola MD Primary Care Provider Encounter Details Date Type Department Care Team (Latest Contact Info) Description 12/05/2000 Outpatient Historical [facility] [address] [place] [address] Trell York MD [address] [place] [phone] Lumbago (Primary Dx); Cervicalgia; Pain in joint, pelvic region and thigh Social History Tobacco Use Types Packs/Day Years Used Date Smoking Tobacco: Never Assessed Comments Unknown Sex and Gender Information Value Date Recorded Sex Assigned at Not on file Legal Sex Female 3: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
--- OUTSIDE RECORDS SUMMARY | 2025-03-23 18:21 | XMS_ITS | Encounter Summary ---
Author Organization [facility] Address [address] [place] [address] Care Team Providers Care Criminalist Name Role Phone Areli Gurrola MD Primary Care Provider Encounter Details Date Type Department Care Team (Latest Contact Info) Description 06/08/1999 Outpatient Historical [facility] [place], Trell Pascual MD [address] [place] [address] Obesity, unspecified (Primary Dx); Encounter for long-term (current) use of other medications Social History Tobacco Use Types Packs/Day Years Used Date Smoking Tobacco: Never Assessed Comments Unknown Sex and Gender Information Value Date Recorded Sex Assigned at Not on file Legal Sex Female 3:40 AM 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 MANAGER Gender Identity Not on file [...] documented as of this encounter Care Teams Criminalist Relationship Specialty Start Date End Date Areli Gurrola MD [address] [facility] [place] [address] PCP - General Specialist 08/12/19 documented as of this encounter
--- OUTSIDE RECORDS SUMMARY | 2025-03-23 18:21 | XMS_ITS | Encounter Summary ---
Author Organization [facility] Address [address] [place] [address] Care Team Providers Care Catastrophe Claims Supervisor Name Role Phone Areli Gurrola MD Primary Care Provider Encounter Details Date Type Department Care Team (Latest Contact Info) Description 01/07/2001 Outpatient Historical [facility] [address] [place] [address] Trell York MD [address] [place] [phone] Unspecified disorder of female genital organs (Primary Dx); Cervicalgia; Lumbago Social History Tobacco Use Types Packs/Day Years Used Date Smoking Tobacco: Never Assessed Comments Unknown Sex and Gender Information Value Date Recorded Sex Assigned at Not on file Legal Sex Female 3:40 AM GATE OPERATOR Gender Identity Not on file Sexual [...] documented as of this encounter Care Teams Catastrophe Claims Supervisor Relationship Specialty Start Date End Date Areli Gurrola MD [address] [place] [address] PCP - General Specialist 08/12/19 documented as of this encounter
--- OUTSIDE RECORDS SUMMARY | 2025-03-23 18:21 | XMS_ITS | Encounter Summary ---
Author Organization [facility] Address [address] [place] [address] Care Team Providers Care Broadcast Correspondent Name Role Phone Areli Gurrola MD Primary Care Provider Encounter Details Date Type Department Care Team (Latest Contact Info) Description 04/23/2000 Outpatient Historical [facility] [address] [place] [address] Trell York MD [address] [place] [phone] Cervicalgia (Primary Dx); Other convulsions Social History Tobacco Use Types Packs/Day Years Used Date Smoking Tobacco: Never Assessed Comments Unknown Sex and Gender Information Value Date Recorded Sex Assigned at Not on file Legal Sex Female 3: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
--- OUTSIDE RECORDS SUMMARY | 2025-03-23 18:21 | XMS_ITS | Encounter Summary ---
Author Organization [facility] Address [address] [place] [address] Care Team Providers Care Electrologist Name Role Phone Areli Gurrola MD Primary Care Provider Encounter Details Date Type Department Care Team (Latest Contact Info) Description 04/25/2001 Outpatient Historical [facility] [address] [place] [address] Trell York MD [address] [place] [phone] ESOPHAGITIS, UNSPECIFIED (Primary Dx); LUMBAGO; SEBACEOUS CYST Social History Tobacco Use Types Packs/Day Years Used Date Smoking Tobacco: Never Assessed Comments Unknown Sex and Gender Information Value Date Recorded Sex Assigned at Not on file Legal Sex Female 3:40 AM BUFFER MACHINE Gender Identity Not on file Sexual [...] documented as of this encounter Care Teams Electrologist Relationship Specialty Start Date End Date Areli Gurrola MD [address] [place] [address] PCP - General Specialist 08/12/19 documented as of this encounter
--- OUTSIDE RECORDS SUMMARY | 2025-03-23 18:21 | XMS_ITS | Encounter Summary ---
Author Organization [facility] Address [address] [facility] Attn: [place] [address] Care Team Providers Care Carburetor Rebuilder Name Role Phone Areli Gurrola MD Primary Care Provider Encounter Details Date Type Department Care Team (Late st Contact Info) Description 06/11/2001 Inpatient Historical Renan Martinez MD [address] [place] [address] Social History Tobacco Use Types Packs/Day Years Used Date Smoking Tobacco: Never Assessed Comments Unknown Sex and Gender Information Value Date Recorded Sex Assigned at Not on file Legal Sex Female 3:40 AM VETERANS SERVICE REPRESENTATIVE Gender Identity Not on file Sexual Orientation Not on file documented as of this encounter Plan of Treatment Not on file documented as of this encounter Visit Diagnoses Not on filedocumented in this encounter Additional Health Concerns Infection Onset Date Last Indicated Resolved Time R/O COVID-19 01/31/2020 01/31/2020 02/02/2020 10:3 2 AM CDT documented as of this encounter Care Teams Carburetor Rebuilder Relationship Specialty Start Date End Date Areli Gurrola MD [address] [facility] [address] PCP - General Specialist 08/12/19 documented as of this encounter
--- OUTSIDE RECORDS SUMMARY | 2025-03-23 18:21 | XMS_ITS | Encounter Summary ---
Author Organization [facility] Address [address] [place] [address] Care Team Providers Care Career Center Director Name Role Phone Areli Gurrola MD Primary Care Provider Encounter Details Date Type Department Care Team (Latest Contact Info) Description 10/08/2000 Outpatient Historical [facility] [address] [place] [address] Trell York MD [address] [place] [phone] Sprain and strain of unspecified site of knee and leg (Primary Dx) Social History Tobacco Use Types Packs/Day Years Used Date Smoking Tobacco: Never Assessed Comments Unknown Sex and Gender Information Value Date Recorded Sex Assigned at Not on file Legal Sex Female 3:40 AM EXPLOSIVE ORDNANCE DISPOSAL MANAGER Gender Identity Not on file Sexual [...] as of this encounter Care Teams Career Center Director Relationship Specialty Start Date End Date Areli Gurrola MD [address] [facility] [place] [address] PCP - General Specialist 08/12/19 documented as of this encounter
--- OUTSIDE RECORDS SUMMARY | 2025-03-23 18:21 | XMS_ITS | Encounter Summary ---
Author Organization [facility] Address [address] [facility] Attn: [place] [id number] Care Team Providers Care Marketing Analyst Name Role Phone Areli Gurrola MD [...] on file Legal Sex Female 3:40 AM DEHYDRATOR TENDER Gender Identity Not on file Sexual Orientation Not on file documented as of this encounter Plan of Treatment Not on file documented as of this encounter Visit Diagnoses Not on filedocumented in this encounter Additional Health Concerns Infection Onset Date Last Indicated Resolved Time R/O COVID-19 01/31/2020 01/31/2020 02/02/2020 10:3 2 AM CDT documented as of this encounter Care Teams Marketing Analyst Relationship Specialty Start Date End Date Areli Gurrola MD [address] [place] [address] PCP - General Specialist 08/12/19 documented as of this encounter
--- OUTSIDE RECORDS SUMMARY | 2025-03-23 18:21 | XMS_ITS | Encounter Summary ---
Author Organization [facility] Address [address] [place] [address] Care Team Providers Care Medical Records Specialist Name Role Phone Areli Gurrola MD Primary Care Provider Encounter Details Date Type Department Care Team (Latest Contact Info) Description 06/07/2000 Outpatient Historical [facility] [address] [place] [address] Trell York MD [address] [place] [phone] Lumbago (Primary Dx); Open wound of foot except toe(s) alone, without mention of complication Social History Tobacco Use Types Packs/Day Years Used Date Smoking Tobacco: Never Assessed Comments Unknown Sex and Gender Information Value Date Recorded Sex Assigned at Not on file Legal Sex Female 3:40 AM POLE FRAMER Gender Identity Not on file Sexual Orientation [...] as of this encounter Care Teams Medical Records Specialist Relationship Specialty Start Date End Date Areli Gurrola MD [address] [facility] [place] [address] PCP - General Specialist 08/12/19 documented as of this encounter
--- OUTSIDE RECORDS SUMMARY | 2025-03-23 18:21 | XMS_ITS | Encounter Summary ---
Author Organization [facility] Address [address] [place] [address] Care Team Providers Care Manufacturing Mechanic Name Role Phone Areli Gurrola MD Primary Care Provider Encounter Details Date Type Department Care Team (Latest Contact Info) Description 06/08/1999 Outpatient Historical [facility] [address] [place] [address] Trell York MD [address] [place] [phone] Carpal tunnel syndrome (Primary Dx); Sprain of neck; Obesity, unspecified Social History Tobacco Use Types Packs/Day Years Used Date Smoking Tobacco: Never Assessed Comments Unknown Sex and Gender Information Value Date Recorded Sex Assigned at Not on file Legal Sex Female 3:40 AM VACUUM CLEANER REPAIRER Gender Identity Not on file Sexual [...] documented as of this encounter Care Teams Manufacturing Mechanic Relationship Specialty Start Date End Date Areli Gurrola MD [address] [facility] [place] [address] PCP - General Specialist 08/12/19 documented as of this encounter
--- OUTSIDE RECORDS SUMMARY | 2025-03-23 18:21 | XMS_ITS | Encounter Summary ---
Author Organization [facility] Address [address] [place] [address] Care Team Providers Care Blast Furnace Supervisor Name Role Phone Areli Gurrola MD Primary Care Provider Encounter Details Date Type Department Care Team (Latest Contact Info) Description 08/09/1999 Outpatient Historical [facility] [address] [place] [address] Trell York MD [address] [place] [phone] Stricture of cervix (Primary Dx) Social History Tobacco Use Types Packs/Day Years Used Date Smoking Tobacco: Never Assessed Comments Unknown Sex and Gender Information Value Date Recorded Sex Assigned at Not on file Legal Sex Female 3:40 AM BLEACHING MACHINE OPERATOR Gender Identity Not on file [...] documented as of this encounter Care Teams Blast Furnace Supervisor Relationship Specialty Start Date End Date Areli Gurrola MD [address] [facility] [place] [address] PCP - General Specialist 08/12/19 documented as of this encounter
--- OUTSIDE RECORDS SUMMARY | 2025-03-23 18:21 | XMS_ITS | Encounter Summary ---
Author Organization [facility] Address [address] [place] [address] Care Team Providers Care Services Mgr Name Role Phone Areli Gurrola MD Primary Care Provider Encounter Details Date Type Department Care Team (Latest Contact Info) Description 03/14/2000 Outpatient Historical [facility] [address] [place] [address] Trell York MD [address] [place] [phone] Unspecified disorder of female genital organs (Primary Dx); Lumbago Social History Tobacco Use Types Packs/Day Years Used Date Smoking Tobacco: Never Assessed Comments Unknown Sex and Gender Information Value Date Recorded Sex Assigned at Not on file Legal Sex Female 3:40 AM SALES DEVELOPMENT MANAGER Gender Identity Not on file [...] documented as of this encounter Care Teams Services Mgr Relationship Specialty Start Date End Date Areli Gurrola MD [address] [facility] [place] [address] PCP - General Specialist 08/12/19 documented as of this encounter
--- OUTSIDE RECORDS SUMMARY | 2025-03-23 18:21 | XMS_ITS | Encounter Summary ---
Author Organization [facility] Address [address] [place] [address] Care Team Providers Care Ginning Operator Name Role Phone Areli Gurrola MD Primary Care Provider Encounter Details Date Type Department Care Team (Latest Contact Info) Description 06/20/1999 Outpatient Historical [facility] Joseph Ramos MD [address] [place] [address] Pain in joint, hand (Primary Dx) Social History Tobacco Use Types Packs/Day Years Used Date Smoking Tobacco: Never Assessed Comments Unknown Sex and Gender Information Value Date Recorded Sex Assigned at Not on file Legal Sex Female 3:40 AM DIRECTOR COMMERCIAL SALES Gender Identity Not on file Sexual [...] documented as of this encounter Care Teams Ginning Operator Relationship Specialty Start Date End Date Areli Gurrola MD [address] [facility] [place] [address] PCP - General Specialist 08/12/19 documented as of this encounter
--- OUTSIDE RECORDS SUMMARY | 2025-03-23 18:22 | XMS_ITS | Encounter Summary ---
Author Organization [facility] Address [address] [facility] Attn: [place] [address] Care Team Providers Care Floater Operator Name Role Phone Areli Gurrola MD Primary Care Provider Encounter Details Date Type Department Care Team (Late st Contact Info) Description 08/19/1999 Outpatient Historical Joseph Rmaos MD [address] [place] [address] Social History Tobacco Use Types Packs/Day Years Used Date Smoking Tobacco: Never Assessed Comments Unknown Sex and Gender Information Value Date Recorded Sex Assigned at Not on file Legal Sex Female 3:40 AM DIRECTOR OF SUSTAINABILITY Gender Identity Not on file Sexual Orientation Not on file documented as of this encounter Plan of Treatment Not on file documented as of this encounter Visit Diagnoses Not on filedocumented in this encounter Additional Health Concerns Infection Onset Date Last Indicated Resolved Time R/O COVID-19 01/31/2020 01/31/2020 02/02/2020 10:3 2 AM CDT documented as of this encounter Care Teams Floater Operator Relationship Specialty Start Date End Date Areli Gurrola MD [address] [facility] [place] [address] PCP - General Specialist 08/12/19 documented as of this encounter
--- OUTSIDE RECORDS SUMMARY | 2025-03-23 18:22 | XMS_ITS | Clinical Summary ---
Author Organization [facility] Address [address] [place] [address] Care Team Providers Care Commodity Buyer Name Role Phone Areli Gurrola MD [...] on file Legal Sex Female 3:40 AM CONVEYOR SYSTEM OPERATOR Gender Identity Not on file [...] or Tdap) 03/15/2030 03/15/2020, 11/07/1997, 03/03/1997 Insurance [facility] DUAL COMPLETE MCR PPO D-SNP [place]ICA[place] Advance Directives For more information, please contact: [phone] * Full Code (Latest Code Status on File) Date Activated Date Inactivated Comments 02/17/2016 12:44 PM 02/17/2016 4:46 PM Care Teams Commodity Buyer Relationship Specialty Start Date End Date Areli Gurrola MD [address] [place] [address] PCP - General Specialist 08/12/19
--- OUTSIDE RECORDS SUMMARY | 2025-03-23 18:22 | XMS_ITS | Encounter Summary ---
Author Organization [facility] Address [address] [place] [address] Care Team Providers Care Supervisor Compounding And Finishing Name Role Phone Areli Gurrola MD Primary Care Provider Encounter Details Date Type Department Care Team (Latest Contact Info) Description 11/28/1999 Outpatient Historical [facility] [address] [place] [address] Trell York MD [address] [place] [phone] Lumbago (Primary Dx) Social History Tobacco Use Types Packs/Day Years Used Date Smoking Tobacco: Never Assessed Comments Unknown Sex and Gender Information Value Date Recorded Sex Assigned at Not on file Legal Sex Female 3:40 AM MIXING MACHINE TENDER Gender Identity Not on file [...] as of this encounter Care Teams Supervisor Compounding And Finishing Relationship Specialty Start Date End Date Areli Gurrola MD [address] [facility] [place] [address] PCP - General Specialist 08/12/19 documented as of this encounter
--- OUTSIDE RECORDS SUMMARY | 2025-03-23 18:22 | XMS_ITS | Encounter Summary ---
Author Organization [facility] Address [address] [place] [address] Care Team Providers Care Go Cart Mechanic Name Role Phone Areli Gurrola MD Primary Care Provider Encounter Details Date Type Department Care Team (Late st Contact Info) Description 03/30/1999 Outpatient Historical [facility] Social History Tobacco Use Types Packs/Day Years Used Date Smoking Tobacco: Never Assessed Comments Unknown Sex and Gender Information Value Date Recorded Sex Assigned at Not on file Legal Sex Female 3:40 AM METAL BONDING PRESS OPERATOR Gender Identity Not on file Sexual Orientation Not on file documented as of this encounter Plan of Treatment Not on file documented as of this encounter Visit Diagnoses Not on filedocumented in this encounter Additional Health Concerns Infection Onset Date Last Indicated Resolved Time R/O COVID-19 01/31/2020 01/31/2020 02/02/2020 10:3 2 AM CDT documented as of this encounter Care Teams Go Cart Mechanic Relationship Specialty Start Date End Date Areli Gurrola MD [address] [place] [address] PCP - General Specialist 08/12/19 documented as of this encounter
--- OUTSIDE RECORDS SUMMARY | 2025-03-23 18:22 | XMS_ITS | Encounter Summary ---
Author Organization [facility] Address [address] [place] [address] Care Team Providers Care Newspaper Delivery Counselor Name Role Phone Areli Gurrola MD Primary Care Provider Encounter Details Date Type Department Care Team (Late st Contact Info) Description 05/23/1999 Outpatient Historical [facility] [address] [facility] [address] [place] [address] Trell Hines MD [address] [place] [address] Carpal tunnel syndrome (Primary Dx) Social History Tobacco Use Types Packs/Day Years Used Date Smoking Tobacco: Never Assessed Comments Unknown Sex and Gender Information Value Date Recorded Sex Assigned at Not on file Legal Sex Female 3:40 AM FIRE EXTINGUISHER SPRINKLER INSPECTOR Gender Identity Not on file Sexual [...] documented as of this encounter Care Teams Newspaper Delivery Counselor Relationship Specialty Start Date End Date Areli Gurrola MD [address] [place] [address] PCP - General Specialist 08/12/19 documented as of this encounter
--- OUTSIDE RECORDS SUMMARY | 2025-03-23 18:22 | XMS_ITS | Encounter Summary ---
Author Organization [facility] Address [address] [place] [address] Care Team Providers Care Vice President Name Role Phone Areli Gurrola MD Primary Care Provider Encounter Details Date Type Department Care Team (Latest Contact Info) Description 10/20/1999 Outpatient Historical [facility] Joseph Ramos MD [address] [place] [address] Carpal tunnel syndrome (Primary Dx) Social History Tobacco Use Types Packs/Day Years Used Date Smoking Tobacco: Never Assessed Comments Unknown Sex and Gender Information Value Date Recorded Sex Assigned at Not on file Legal Sex Female 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 Gender Identity Not on file Sexual Orientation Not on file documented as of this encounter Plan of Treatment Not on file documented as of this encounter Visit Diagnoses Diagnosis Carpal tunnel syndrome- Primary documented in this encounter Additional Health Concerns Infection Onset Date Last Indicated Resolved Time R/O COVID-19 01/31/2020 01/31/2020 02/02/2020 10:3 2 AM CDT documented as of this encounter Care Teams Vice President Relationship Specialty Start Date End Date Areli Gurrola MD [address] [place] [address] PCP - General Specialist 08/12/19 documented as of this encounter
--- OUTSIDE RECORDS SUMMARY | 2025-03-23 18:22 | XMS_ITS | Encounter Summary ---
Author Organization [facility] Address [address] [facility] Attn: [place] [address] Care Team Providers Care Ranch Cook Name Role Phone Areli Gurrola MD Primary Care Provider Encounter Details Date Type Department Care Team (Late st Contact Info) Description 08/24/1999 Outpatient Historical Joseph Ramos MD [address] [place] [address] Social History Tobacco Use Types Packs/Day Years Used Date Smoking Tobacco: Never Assessed Comments Unknown Sex and Gender Information Value Date Recorded Sex Assigned at Not on file Legal Sex Female 3:40 AM DOUGH CUTTER Gender Identity Not on file Sexual Orientation Not on file documented as of this encounter Plan of Treatment Not on file documented as of this encounter Visit Diagnoses Not on filedocumented in this encounter Additional Health Concerns Infection Onset Date Last Indicated Resolved Time R/O COVID-19 01/31/2020 01/31/2020 02/02/2020 10:3 2 AM CDT documented as of this encounter Care Teams Ranch Cook Relationship Specialty Start Date End Date Areli Gurrola MD [address] [facility] [place] [address] PCP - General Specialist 08/12/19 documented as of this encounter
--- OUTSIDE RECORDS SUMMARY | 2025-03-23 18:22 | XMS_ITS | Encounter Summary ---
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 Gender Identity Not on file Sexual Orientation Not on file documented as of this encounter Plan of Treatment Not on file documented as of this encounter Visit Diagnoses Not on filedocumented in this encounter Additional Health Concerns Infection Onset Date Last Indicated Resolved Time R/O COVID-19 01/31/2020 01/31/2020 02/02/2020 10:3 2 AM CDT documented as of this encounter Care Teams Slitter And Rewinder Relationship Specialty Start Date End Date Areli Gurrola MD [address] [facility] [place] [address] PCP - General Specialist 08/12/19 documented as of this encounter
--- OUTSIDE RECORDS SUMMARY | 2025-03-23 18:22 | XMS_ITS | Encounter Summary ---
Author Organization [facility] Address [address] [place] [address] Care Team Providers Care Stereo Plotter Operator Name Role Phone Areli Gurrola MD Primary Care Provider Encounter Details Date Type Department Care Team (Latest Contact Info) Description 10/27/1999 Outpatient Historical [facility] [place] [facility] [address] [place] [address] Trell York MD [address] [place] [address] Lumbago (Primary Dx) Social History Tobacco Use Types Packs/Day Years Used Date Smoking Tobacco: Never Assessed Comments Unknown Sex and Gender Information Value Date Recorded Sex Assigned at Not on file Legal Sex Female 3:40 AM ACCOUNT DIRECTOR Gender Identity Not on file Sexual Orientation Not on file documented as of this encounter Plan of Treatment Not on file documented as of this encounter Visit Diagnoses Diagnosis Lumbago- Primary documented in this encounter Additional Health Concerns Infection Onset Date Last Indicated Resolved Time R/O COVID-19 01/31/2020 01/31/2020 02/02/2020 10:3 2 AM CDT documented as of this encounter Care Teams Stereo Plotter Operator Relationship Specialty Start Date End Date Areli Gurrola MD [address] [facility] [place] [address] PCP - General Specialist 08/12/19 documented as of this encounter
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
--- OUTSIDE RECORDS SUMMARY | 2025-03-23 18:22 | XMS_ITS | Encounter Summary ---
Author Organization [facility] Address [address] [place] [address] Care Team Providers Care Crimping Machine Operator For Metal Name Role Phone Areli Gurrola MD Primary Care Provider Encounter Details Date Type Department Care Team (Latest Contact Info) Description 09/29/[address] 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
--- OUTSIDE RECORDS SUMMARY | 2025-03-23 18:22 | XMS_ITS | Encounter Summary ---
Author Organization [facility] Address [address] [place] [address] Care Team Providers Care Pickle Maker Name Role Phone Areli Gurrola MD Primary Care Provider Encounter Details Date Type Department Care Team (Latest Contact Info) Description 05/24/1999 Outpatient Historical [facility] [address] [place] [address] Trell York MD [address] [place] [phone] Edema (Primary Dx); Lumbago Social History Tobacco Use Types Packs/Day Years Used Date Smoking Tobacco: Never Assessed Comments Unknown Sex and Gender Information Value Date Recorded Sex Assigned at Not on file Legal Sex Female 3:40 AM CURRICULUM DIRECTOR Gender Identity Not on file Sexual Orientation Not on file documented as of this encounter Plan of Treatment Not on file documented as of this encounter Visit Diagnoses Diagnosis Edema- Primary Lumbago documented in this encounter Additional Health Concerns Infection Onset Date Last Indicated Resolved Time R/O COVID-19 01/31/2020 01/31/2020 02/02/2020 10:3 2 AM CDT documented as of this encounter Care Teams Pickle Maker Relationship Specialty Start Date End Date Areli Gurrola MD [address] [place] [place] [address] PCP - General Specialist 08/12/19 documented as of this encounter
--- OUTSIDE RECORDS SUMMARY | 2025-03-23 18:22 | XMS_ITS | Encounter Summary ---
Author Organization [facility] Address [address] [place] [address] Care Team Providers Care Distribution Field Technician Name Role Phone Areli Gurrola MD Primary Care Provider Encounter Details Date Type Department Care Team (Latest Contact Info) Description 09/01/1999 Outpatient Historical [facility] Joseph Ramos MD [address] [place] [address] Pain in joint, hand (Primary Dx); Follow-up examination following surgery Social History Tobacco Use Types Packs/Day Years Used Date Smoking Tobacco: Never Assessed Comments Unknown Sex and Gender Information Value Date Recorded Sex Assigned at Not on file Legal Sex Female 3:40 AM PHARMACY RESIDENT Gender Identity Not on file Sexual Orientation [...] as of this encounter Care Teams Distribution Field Technician Relationship Specialty Start Date End Date Areli Gurrola MD [address] [place] [address] PCP - General Specialist 08/12/19 documented as of this encounter
--- OUTSIDE RECORDS SUMMARY | 2025-03-23 18:22 | XMS_ITS | Encounter Summary ---
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
--- OUTSIDE RECORDS SUMMARY | 2025-03-23 18:22 | XMS_ITS | Encounter Summary ---
Author Organization [facility] Address [address] [facility] Attn: [place] [address] Care Team Providers Care Infection Prevention Specialist Name Role Phone Areli Gurrola MD Primary Care Provider Encounter Details Date Type Department Care Team (Late st Contact Info) Description 11/10/1999 Outpatient Historical Joseph Ramos MD [address] [place] [address] Social History Tobacco Use Types Packs/Day Years Used Date Smoking Tobacco: Never Assessed Comments Unknown Sex and Gender Information Value Date Recorded Sex Assigned at Not on file Legal Sex Female 3:40 AM BOW MAKER GIFT WRAPPING Gender Identity Not on file Sexual Orientation Not on file documented as of this encounter Plan of Treatment Not on file documented as of this encounter Visit Diagnoses Not on filedocumented in this encounter Additional Health Concerns Infection Onset Date Last Indicated Resolved Time R/O COVID-19 01/31/2020 01/31/2020 02/02/2020 10:3 2 AM CDT documented as of this encounter Care Teams Infection Prevention Specialist Relationship Specialty Start Date End Date Areli Gurrola MD [address] [facility] [place] [address] PCP - General Specialist 08/12/19 documented as of this encounter
--- OUTSIDE RECORDS SUMMARY | 2025-03-23 18:22 | XMS_ITS | Encounter Summary ---
Author Organization [facility] Address [address] [place] [address] Care Team Providers Care Conditioner Tumbler Operator Name Role Phone Areli Gurrola MD Primary Care Provider Encounter Details Date Type Department Care Team (Latest Contact Info) Description 09/08/1999 Outpatient Historical [facility] [address] [place] [address] Trell York MD [address] [place] [phone] Lumbago (Primary Dx); Obesity, unspecified Social History Tobacco Use Types Packs/Day Years Used Date Smoking Tobacco: Never Assessed Comments Unknown Sex and Gender Information Value Date Recorded Sex Assigned at Not on file Legal Sex Female 3:40 AM CONCRETE BATCHER Gender Identity Not on file Sexual Orientation [...] of this encounter Care Teams Conditioner Tumbler Operator Relationship Specialty Start Date End Date Areli Gurrola MD [address] [facility] [place] [address] PCP - General Specialist 08/12/19 documented as of this encounter
--- OUTSIDE RECORDS SUMMARY | 2025-03-23 18:22 | XMS_ITS | Encounter Summary ---
Author Organization [facility] Address [address] [place] [address] Care Team Providers Care Sales Development Coordinator Name Role Phone Areli Gurrola MD Primary Care Provider Encounter Details Date Type Department Care Team (Latest Contact Info) Description 05/09/1999 Outpatient Historical [facility] [address] [place] [address] Trell York MD [address] [place] [phone] Cervical spinal stenosis (Primary Dx); Contusion of elbow Social History Tobacco Use Types Packs/Day Years Used Date Smoking Tobacco: Never Assessed Comments Unknown Sex and Gender Information Value Date Recorded Sex Assigned at Not on file Legal Sex Female 3:40 AM GOLF BALL WINDER Gender Identity Not on file Sexual [...] of this encounter Care Teams Sales Development Coordinator Relationship Specialty Start Date End Date Areli Gurrola MD [address] [place] [address] PCP - General Specialist 08/12/19 documented as of this encounter
--- OUTSIDE RECORDS SUMMARY | 2025-03-23 18:23 | XMS_ITS | Encounter Summary ---
Author Organization [facility] Address [address] [place] [address] Care Team Providers Care Sales Outfitter Name Role Phone Areli Gurrola MD Primary Care Provider Encounter Details Date Type Department Care Team (Latest Contact Info) Description 03/23/1999 Outpatient [facility] [address] [place] [address] Alumno, Gibran Lynn MD [address] [place] [address] Unspecified viral infection, in conditions classified elsewhere and of unspecified site (Primary Dx); Sprain and strain of other specified sites of shoulder and upper arm; Tobacco use disorder Social History Tobacco Use Types Packs/Day Years Used Date Smoking Tobacco: Never Assessed Comments Unknown Sex and Gender Information Value Date Recorded Sex Assigned at Not on file Legal Sex Female 3:40 AM WINDOWS SERVER 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
--- OUTSIDE RECORDS SUMMARY | 2025-03-23 18:23 | XMS_ITS | Encounter Summary ---
Author Organization [facility] Address [address] [place] [address] Care Team Providers Care Pin Machine Operator Name Role Phone Areli Gurrola MD Primary Care Provider Encounter Details Date Type Department Care Team (Latest Contact Info) Description 05/03/1999 Outpatient Historical [facility] [place] [place] [address] Alumno, Gibran yLnn MD [address] [place] [address] Cramp of limb (Primary Dx); Contracture of hand joint Social History Tobacco Use Types Packs/Day Years Used Date Smoking Tobacco: Never Assessed Comments Unknown Sex and Gender Information Value Date Recorded Sex Assigned at Not on file Legal Sex Female 3:40 AM LANGUAGE ASST Gender Identity Not on file Sexual Orientation [...] documented as of this encounter Care Teams Pin Machine Operator Relationship Specialty Start Date End Date Areli Gurrola MD [address] [place] [address] PCP - General Specialist 08/12/19 documented as of this encounter
--- OUTSIDE RECORDS SUMMARY | 2025-03-23 18:23 | XMS_ITS | Encounter Summary ---
Author Organization [facility] Address [address] [place] [address] Care Team Providers Care Regeneration Operator Name Role Phone Areli Gurrola MD Primary Care Provider Encounter Details Date Type Department Care Team (Late st Contact Info) Description 04/14/1999 Outpatient Historical [facility] Social History Tobacco Use Types Packs/Day Years Used Date Smoking Tobacco: Never Assessed Comments Unknown Sex and Gender Information Value Date Recorded Sex Assigned at Not on file Legal Sex Female 3:40 AM VALVE FITTER Gender Identity Not on file Sexual Orientation Not on file documented as of this encounter Plan of Treatment Not on file documented as of this encounter Visit Diagnoses Not on filedocumented in this encounter Additional Health Concerns Infection Onset Date Last Indicated Resolved Time R/O COVID-19 01/31/2020 01/31/2020 02/02/2020 10:3 2 AM CDT documented as of this encounter Care Teams Regeneration Operator Relationship Specialty Start Date End Date Areli Gurrola MD [address] [place] [address] PCP - General Specialist 08/12/19 documented as of this encounter
--- OUTSIDE RECORDS SUMMARY | 2025-03-23 18:23 | XMS_ITS | Encounter Summary ---
Author Organization [facility] Address [address] [place] [address] Care Team Providers Care Bacon Skin Lifter Name Role Phone Areli Gurrola MD Primary Care Provider Encounter Details Date Type Department Care Team (Latest Contact Info) Description 04/11/2006 Outpatient Historical [facility] [place] [facility] [address] [place] [address] Trell York MD [address] [place] [phone] Unspecified Essential Hypertension (Primary Dx); Dysthymic Disorder; Insomnia, Unspecified; Mononeuritis of Unspecified Site Social History Tobacco Use Types Packs/Day Years Used Date Smoking Tobacco: Never Assessed Comments Unknown Sex and Gender Information Value Date Recorded Sex Assigned at Not on file Legal Sex Female 3:40 AM MANAGER GLOBAL Gender Identity Not on file Sexual Orientation [...] documented as of this encounter Care Teams Bacon Skin Lifter Relationship Specialty Start Date End Date Areli Gurrola MD [address] [facility] [place] [address] PCP - General Specialist 08/12/19 documented as of this encounter
--- OUTSIDE RECORDS SUMMARY | 2025-03-23 18:23 | XMS_ITS | Encounter Summary ---
Author Organization [facility] Address [address] [place] [address] Care Team Providers Care Stock Handler Name Role Phone Areli Gurrola MD Primary Care Provider Encounter Details Date Type Department Care Team (Late st Contact Info) Description 04/05/1999 Outpatient Historical HIS [facility] Social History Tobacco Use Types Packs/Day Years Used Date Smoking Tobacco: Never Assessed Comments Unknown Sex and Gender Information Value Date Recorded Sex Assigned at Not on file Legal Sex Female 3:40 AM PRODUCT REPRESENTATIVE Gender Identity Not on file Sexual Orientation Not on file documented as of this encounter Plan of Treatment Not on file documented as of this encounter Visit Diagnoses Not on filedocumented in this encounter Additional Health Concerns Infection Onset Date Last Indicated Resolved Time R/O COVID-19 01/31/2020 01/31/2020 02/02/2020 10:3 2 AM CDT documented as of this encounter Care Teams Stock Handler Relationship Specialty Start Date End Date Areli Gurrola MD [address] [place] [address] PCP - General Specialist 08/12/19 documented as of this encounter
--- OUTSIDE RECORDS SUMMARY | 2025-03-23 18:23 | XMS_ITS | Encounter Summary ---
Author Organization [facility] Address [address] [facility] Attn: [place] [address] Care Team Providers Care Coal Yard Supervisor Name Role Phone Areli Gurrola MD [...] on file Legal Sex Female 3:40 AM WHITE SHOE EXAMINER Gender Identity Not on file Sexual Orientation Not on file documented as of this encounter Plan of Treatment Not on file documented as of this encounter Visit Diagnoses Not on filedocumented in this encounter Additional Health Concerns Infection Onset Date Last Indicated Resolved Time R/O COVID-19 01/31/2020 01/31/2020 02/02/2020 10:3 2 AM CDT documented as of this encounter Care Teams Coal Yard Supervisor Relationship Specialty Start Date End Date Areli Gurrola MD [address] [facility] [address] [place] [address] PCP - General Specialist 08/12/19 documented as of this encounter
--- OUTSIDE RECORDS SUMMARY | 2025-03-23 18:23 | XMS_ITS | Encounter Summary ---
Author Organization [facility] Address [address] [place] [address] Care Team Providers Care Consulting Practice Manager Name Role Phone Areli Gurrola MD Primary Care Provider Encounter Details Date Type Department Care Team (Late st Contact Info) Description 04/14/1999 Outpatient Historical HIS [facility] Social History Tobacco Use Types Packs/Day Years Used Date Smoking Tobacco: Never Assessed Comments Unknown Sex and Gender Information Value Date Recorded Sex Assigned at Not on file Legal Sex Female 3:40 AM EGG PROCESSOR Gender Identity Not on file Sexual Orientation Not on file documented as of this encounter Plan of Treatment Not on file documented as of this encounter Visit Diagnoses Not on filedocumented in this encounter Additional Health Concerns Infection Onset Date Last Indicated Resolved Time R/O COVID-19 01/31/2020 01/31/2020 02/02/2020 10:3 2 AM CDT documented as of this encounter Care Teams Consulting Practice Manager Relationship Specialty Start Date End Date Areli Gurrola MD [address] [place] [address] PCP - General Specialist 08/12/19 documented as of this encounter
--- OUTSIDE RECORDS SUMMARY | 2025-03-23 18:23 | XMS_ITS | Encounter Summary ---
Author Organization [facility] Address [address] [place] [address] Care Team Providers Care Epic Analyst Name Role Phone Areli Gurrola MD Primary Care Provider Encounter Details Date Type Department Care Team (Late st Contact Info) Description 04/07/1999 Outpatient Historical HIS [facility] Social History Tobacco Use Types Packs/Day Years Used Date Smoking Tobacco: Never Assessed Comments Unknown Sex and Gender Information Value Date Recorded Sex Assigned at Not on file Legal Sex Female 3:40 AM SECONDS HANDLER Gender Identity Not on file Sexual Orientation Not on file documented as of this encounter Plan of Treatment Not on file documented as of this encounter Visit Diagnoses Not on filedocumented in this encounter Additional Health Concerns Infection Onset Date Last Indicated Resolved Time R/O COVID-19 01/31/2020 01/31/2020 02/02/2020 10:3 2 AM CDT documented as of this encounter Care Teams Epic Analyst Relationship Specialty Start Date End Date Areli Gurrola MD [address] [place] [address] PCP - General Specialist 08/12/19 documented as of this encounter
--- OUTSIDE RECORDS SUMMARY | 2025-03-23 18:23 | XMS_ITS | Encounter Summary ---
Author Organization [facility] Address [address] [place] [address] Care Team Providers Care Chiropractic Care Name Role Phone Areli Gurrola MD Primary Care Provider Encounter Details Date Type Department Care Team (Late st Contact Info) Description 04/11/1999 Outpatient Historical HIS [facility] Social History Tobacco Use Types Packs/Day Years Used Date Smoking Tobacco: Never Assessed Comments Unknown Sex and Gender Information Value Date Recorded Sex Assigned at Not on file Legal Sex Female 3:40 AM DIAGRAMMER AND SEAMER Gender Identity Not on file Sexual Orientation Not on file documented as of this encounter Plan of Treatment Not on file documented as of this encounter Visit Diagnoses Not on filedocumented in this encounter Additional Health Concerns Infection Onset Date Last Indicated Resolved Time R/O COVID-19 01/31/2020 01/31/2020 02/02/2020 10:3 2 AM CDT documented as of this encounter Care Teams Chiropractic Care Relationship Specialty Start Date End Date Areli Gurrola MD [address] [place] [address] PCP - General Specialist 08/12/19 documented as of this encounter
--- OUTSIDE RECORDS SUMMARY | 2025-03-23 18:23 | XMS_ITS | Encounter Summary ---
Author Organization [facility] Address [address] [place] [address] Care Team Providers Care Tube Cutter Name Role Phone Areli Gurrola MD Primary Care Provider Encounter Details Date Type Department Care Team (Late st Contact Info) Description 04/07/1999 Outpatient Historical HIS [facility] Social History Tobacco Use Types Packs/Day Years Used Date Smoking Tobacco: Never Assessed Comments Unknown Sex and Gender Information Value Date Recorded Sex Assigned at Not on file Legal Sex Female 3:40 AM VAMP PRESSER Gender Identity Not on file Sexual Orientation Not on file documented as of this encounter Plan of Treatment Not on file documented as of this encounter Visit Diagnoses Not on filedocumented in this encounter Additional Health Concerns Infection Onset Date Last Indicated Resolved Time R/O COVID-19 01/31/2020 01/31/2020 02/02/2020 10:3 2 AM CDT documented as of this encounter Care Teams Tube Cutter Relationship Specialty Start Date End Date Areli Gurorla MD [address] [place] [address] PCP - General Specialist 08/12/19 documented as of this encounter
--- OUTSIDE RECORDS SUMMARY | 2025-03-23 18:23 | XMS_ITS | Encounter Summary ---
Author Organization [facility] Address [address] [place] [address] Care Team Providers Care Evaluation Analyst Name Role Phone Areli Gurrola MD Primary Care Provider Encounter Details Date Type Department Care Team (Late st Contact Info) Description 03/18/1999 Outpatient Historical HIS [facility] Social History Tobacco Use Types Packs/Day Years Used Date Smoking Tobacco: Never Assessed Comments Unknown Sex and Gender Information Value Date Recorded Sex Assigned at Not on file Legal Sex Female 3:40 AM CONTACT CENTER PROFESSIONAL Gender Identity Not on file Sexual Orientation Not on file documented as of this encounter Plan of Treatment Not on file documented as of this encounter Visit Diagnoses Not on filedocumented in this encounter Additional Health Concerns Infection Onset Date Last Indicated Resolved Time R/O COVID-19 01/31/2020 01/31/2020 02/02/2020 10:3 2 AM CDT documented as of this encounter Care Teams Evaluation Analyst Relationship Specialty Start Date End Date Areli Gurrola MD [address] [place] [address] PCP - General Specialist 08/12/19 documented as of this encounter
--- OUTSIDE RECORDS SUMMARY | 2025-03-23 18:23 | XMS_ITS | Encounter Summary ---
Author Organization [facility] Address [address] [place] [address] Care Team Providers Care Landscaper Name Role Phone Areli Gurrola MD Primary Care Provider Encounter Details Date Type Department Care Team (Late st Contact Info) Description 04/11/1999 Outpatient Historical HIS [facility] Social History Tobacco Use Types Packs/Day Years Used Date Smoking Tobacco: Never Assessed Comments Unknown Sex and Gender Information Value Date Recorded Sex Assigned at Not on file Legal Sex Female 3:40 AM GENERAL ASSEMBLER Gender Identity Not on file Sexual Orientation Not on file documented as of this encounter Plan of Treatment Not on file documented as of this encounter Visit Diagnoses Not on filedocumented in this encounter Additional Health Concerns Infection Onset Date Last Indicated Resolved Time R/O COVID-19 01/31/2020 01/31/2020 02/02/2020 10:3 2 AM CDT documented as of this encounter Care Teams Landscaper Relationship Specialty Start Date End Date Areli Gurrola MD [address] [place] [address] PCP - General Specialist 08/12/19 documented as of this encounter
--- OUTSIDE RECORDS SUMMARY | 2025-03-23 18:23 | XMS_ITS | Encounter Summary ---
Author Organization [facility] Address [address] [place] [address] Care Team Providers Care Diamond Finishing Supervisor Name Role Phone Areli Gurrola MD Primary Care Provider Encounter Details Date Type Department Care Team (Late st Contact Info) Description 03/25/1999 Outpatient Historical HIS [facility] Social History Tobacco Use Types Packs/Day Years Used Date Smoking Tobacco: Never Assessed Comments Unknown Sex and Gender Information Value Date Recorded Sex Assigned at Not on file Legal Sex Female 3:40 AM STONE BELT SANDER Gender Identity Not on file Sexual Orientation Not on file documented as of this encounter Plan of Treatment Not on file documented as of this encounter Visit Diagnoses Not on filedocumented in this encounter Additional Health Concerns Infection Onset Date Last Indicated Resolved Time R/O COVID-19 01/31/2020 01/31/2020 02/02/2020 10:3 2 AM CDT documented as of this encounter Care Teams Diamond Finishing Supervisor Relationship Specialty Start Date End Date Areli Gurrola MD [address] [place] [address] PCP - General Specialist 08/12/19 documented as of this encounter
--- OUTSIDE RECORDS SUMMARY | 2025-03-23 18:23 | XMS_ITS | Encounter Summary ---
Author Organization [facility] Address [address] [place] [address] Care Team Providers Care Looping Inspector Name Role Phone Areli Gurrola MD Primary Care Provider Encounter Details Date Type Department Care Team (Late st Contact Info) Description 03/31/1999 Outpatient Historical HIS [facility] Social History Tobacco Use Types Packs/Day Years Used Date Smoking Tobacco: Never Assessed Comments Unknown Sex and Gender Information Value Date Recorded Sex Assigned at Not on file Legal Sex Female 3:40 AM TAX RECORD CLERK Gender Identity Not on file Sexual Orientation Not on file documented as of this encounter Plan of Treatment Not on file documented as of this encounter Visit Diagnoses Not on filedocumented in this encounter Additional Health Concerns Infection Onset Date Last Indicated Resolved Time R/O COVID-19 01/31/2020 01/31/2020 02/02/2020 10:3 2 AM CDT documented as of this encounter Care Teams Looping Inspector Relationship Specialty Start Date End Date Areli Gurrola MD [address] [place] [address] PCP - General Specialist 08/12/19 documented as of this encounter
--- OUTSIDE RECORDS SUMMARY | 2025-03-23 18:23 | XMS_ITS | Encounter Summary ---
Author Organization [facility] Address [address] [place] [address] Care Team Providers Care Bulb Inspector Name Role Phone Areli Gurrola MD Primary Care Provider Encounter Details Date Type Department Care Team (Late st Contact Info) Description 03/16/1999 Outpatient Historical HIS [facility] Social History Tobacco Use Types Packs/Day Years Used Date Smoking Tobacco: Never Assessed Comments Unknown Sex and Gender Information Value Date Recorded Sex Assigned at Not on file Legal Sex Female 3:40 AM THEATRICAL AGENT Gender Identity Not on file Sexual Orientation Not on file documented as of this encounter Plan of Treatment Not on file documented as of this encounter Visit Diagnoses Not on filedocumented in this encounter Additional Health Concerns Infection Onset Date Last Indicated Resolved Time R/O COVID-19 01/31/2020 01/31/2020 02/02/2020 10:3 2 AM CDT documented as of this encounter Care Teams Bulb Inspector Relationship Specialty Start Date End Date Areli Gurrola MD [address] [place] [address] PCP - General Specialist 08/12/19 documented as of this encounter
--- OUTSIDE RECORDS SUMMARY | 2025-03-23 18:23 | XMS_ITS | Encounter Summary ---
Author Organization [facility] Address [address] [place] [address] Care Team Providers Care Central Communications Specialist Name Role Phone Areli Gurrola MD Primary Care Provider Encounter Details Date Type Department Care Team (Late st Contact Info) Description 03/25/1999 Outpatient Historical HIS [facility] Social History Tobacco Use Types Packs/Day Years Used Date Smoking Tobacco: Never Assessed Comments Unknown Sex and Gender Information Value Date Recorded Sex Assigned at Not on file Legal Sex Female 3:40 AM DECORATOR STORE Gender Identity Not on file Sexual Orientation Not on file documented as of this encounter Plan of Treatment Not on file documented as of this encounter Visit Diagnoses Not on filedocumented in this encounter Additional Health Concerns Infection Onset Date Last Indicated Resolved Time R/O COVID-19 01/31/2020 01/31/2020 02/02/2020 10:3 2 AM CDT documented as of this encounter Care Teams Central Communications Specialist Relationship Specialty Start Date End Date Areli Gurrola MD [address] [place] [address] PCP - General Specialist 08/12/19 documented as of this encounter
--- OUTSIDE RECORDS SUMMARY | 2025-03-23 18:24 | XMS_ITS | Encounter Summary ---
Author Organization [facility] Address [address] [place] [address] Care Team Providers Care Director Service Name Role Phone Areli Gurrola MD Primary Care Provider Encounter Details Date Type Department Care Team (Latest Contact Info) Description 04/25/2004 Outpatient Historical [facility] [address] [place] [address] Trell York MD [address] [place] [phone] DYSTHYMIC DISORDER (Primary Dx); LUMBAGO; Pain in limb; Inflamed seborr keratos Social History Tobacco Use Types Packs/Day Years Used Date Smoking Tobacco: Never Assessed Comments Unknown Sex and Gender Information Value Date Recorded Sex Assigned at Not on file Legal Sex Female 3:40 AM TERMINAL COMPUTER OPERATOR Gender Identity Not on file Sexual [...] as of this encounter Care Teams Director Service Relationship Specialty Start Date End Date Areli Gurrola MD [address] [facility] [place] [address] PCP - General Specialist 08/12/19 documented as of this encounter
--- OUTSIDE RECORDS SUMMARY | 2025-03-23 18:24 | XMS_ITS | Encounter Summary ---
Author Organization [facility] Address [address] [place] [address] Care Team Providers Care Boat Mechanic Name Role Phone Areli Gurrola MD [...] on file Legal Sex Female 3:40 AM PALEOBOTANIST Gender Identity Not on file Sexual Orientation [...] as of this encounter Care Teams Boat Mechanic Relationship Specialty Start Date End Date Areli Gurrola MD [address] [place] [address] PCP - General Specialist 08/12/19 documented as of this encounter
--- OUTSIDE RECORDS SUMMARY | 2025-03-23 18:24 | XMS_ITS | Encounter Summary ---
Author Organization [facility] Address [address] [place] [address] Care Team Providers Care Sourcing Coordinator Name Role Phone Areli Gurrola MD Primary Care Provider Encounter Details Date Type Department Care Team (Latest Contact Info) Description 01/11/2004 Outpatient Historical [facility] [address] [place] [address] Trell York MD [address] [place] [phone] CERVICALGIA (Primary Dx); DYSTHYMIC DISORDER Social History Tobacco Use Types Packs/Day Years Used Date Smoking Tobacco: Never Assessed Comments Unknown Sex and Gender Information Value Date Recorded Sex Assigned at Not on file Legal Sex Female 3:40 AM INTERPRETIVE NATURALIST Gender Identity Not on file Sexual Orientation Not on file documented as of this encounter Plan of Treatment Not on file documented as of this encounter Visit Diagnoses Diagnosis Cervicalgia- Primary Dysthymic disorder documented in this encounter Additional Health Concerns Infection Onset Date Last Indicated Resolved Time R/O COVID-19 01/31/2020 01/31/2020 02/02/2020 10:3 2 AM CDT documented as of this encounter Care Teams Sourcing Coordinator Relationship Specialty Start Date End Date Areli Gurrola MD [address] [place] [phone] PCP - General Specialist 08/12/19 documented as of this encounter
--- OUTSIDE RECORDS SUMMARY | 2025-03-23 18:24 | XMS_ITS | Encounter Summary ---
Author Organization [facility] Address [address] [place] [address] Care Team Providers Care Gang Mower Operator Name Role Phone Areli Gurrola MD Primary Care Provider Encounter Details Date Type Department Care Team (Latest Contact Info) Description 06/04/1998 Outpatient Historical [facility] Charli Perez MD NO ADDRESS ON FILE Open wound of forehead (Primary Dx) Social History Tobacco Use Types Packs/Day Years Used Date Smoking Tobacco: Never Assessed Comments Unknown Sex and Gender Information Value Date Recorded Sex Assigned at Not on file Legal Sex Female 3:40 AM CONSTRUCTION AREA MANAGER Gender Identity Not on file Sexual [...] documented as of this encounter Care Teams Gang Mower Operator Relationship Specialty Start Date End Date Areli Gurrola MD [address] [place] [address] PCP - General Specialist 08/12/19 documented as of this encounter
--- OUTSIDE RECORDS SUMMARY | 2025-03-23 18:24 | XMS_ITS | Encounter Summary ---
Author Organization [facility] Address [address] [place] [address] Care Team Providers Care Roof Bolter Operator Name Role Phone Areli Gurrola MD Primary Care Provider Encounter Details Date Type Department Care Team (Latest Contact Info) Description 02/14/1999 Outpatient Historical [facility] [place] [address] [place] [address] AlumnoGibran MD [address] [place] [address] Lumbago (Primary Dx) Social History Tobacco Use Types Packs/Day Years Used Date Smoking Tobacco: Never Assessed Comments Unknown Sex and Gender Information Value Date Recorded Sex Assigned at Not on file Legal Sex Female 3:40 AM FOUNDER PRESIDENT AND CEO Gender Identity Not on [...] as of this encounter Care Teams Roof Bolter Operator Relationship Specialty Start Date End Date Areli Gurrola MD [address] [place] [address] PCP - General Specialist 08/12/19 documented as of this encounter
--- OUTSIDE RECORDS SUMMARY | 2025-03-23 18:24 | XMS_ITS | Encounter Summary ---
Author Organization [facility] Address [address] [place] [address] Care Team Providers Care Creative Art Therapist Name Role Phone Areli Gurrola MD Primary Care Provider Encounter Details Date Type Department Care Team (Latest Contact Info) Description 10/16/2002 [facility] [address] [place] [address] Gordon Cabral MD NO ADDRESS ON FILE PREOP EXAM OTHER SPECIFIED (Primary Dx); Excessive menstruation Social History Tobacco Use Types Packs/Day Years Used Date Smoking Tobacco: Never Assessed Comments Unknown Sex and Gender Information Value Date Recorded Sex Assigned at Not on file Legal Sex Female 3:40 AM GERICARE AIDE Gender Identity Not on file Sexual [...] documented as of this encounter Care Teams Creative Art Therapist Relationship Specialty Start Date End Date Areli Gurrola MD [address] [facility] [place] [address] PCP - General Specialist 08/12/19 documented as of this encounter
--- OUTSIDE RECORDS SUMMARY | 2025-03-23 18:24 | XMS_ITS | Encounter Summary ---
Author Organization [facility] Address [address] [place] [address] Care Team Providers Care Airplane First Officer Name Role Phone Areli Gurrola MD Primary Care Provider Encounter Details Date Type Department Care Team (Latest Contact Info) Description 10/14/2002 Outpatient Historical [facility] [address] [place] [address] Trell York MD [address] [place] [phone] ACUTE URI NOS (Primary Dx); COUGH Social History Tobacco Use Types Packs/Day Years Used Date Smoking Tobacco: Never Assessed Comments Unknown Sex and Gender Information Value Date Recorded Sex Assigned at Not on file Legal Sex Female 3:40 AM STIFF LEG DERRICK OPERATOR Gender Identity Not on file [...] documented as of this encounter Care Teams Airplane First Officer Relationship Specialty Start Date End Date Areli Gurrola MD [address] [facility] [place] [address] PCP - General Specialist 08/12/19 documented as of this encounter
--- OUTSIDE RECORDS SUMMARY | 2025-03-23 18:24 | XMS_ITS | Encounter Summary ---
Author Organization [facility] Address [address] [place] [address] Care Team Providers Care Rf Microwave Engineer Name Role Phone Areli Gurrola MD Primary Care Provider Encounter Details Date Type Department Care Team (Latest Contact Info) Description 10/28/2002 Outpatient [facility] [address] [place] [address] Gordon Cabral MD NO ADDRESS ON FILE SURGERY FOLLOWUP, UNSPEC (Primary Dx) Social History Tobacco Use Types Packs/Day Years Used Date Smoking Tobacco: Never Assessed Comments Unknown Sex and Gender Information Value Date Recorded Sex Assigned at Not on file Legal Sex Female 3:40 AM OVERHEAD CRANE TECHNICIAN Gender Identity Not on file Sexual [...] MD [address] [facility] [place] [address] PCP - General Specialist 08/12/19 documented as of this encounter
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
--- OUTSIDE RECORDS SUMMARY | 2025-03-23 18:24 | XMS_ITS | Encounter Summary ---
Author Organization [facility] Address [address] [place] [address] Care Team Providers Care Pointing Machine Operator Name Role Phone Areli Gurrola MD Primary Care Provider Encounter Details Date Type Department Care Team (Late st Contact Info) Description 06/24/2003 Outpatient Historical [facility] Imaging Services [place] [address] [place] [phone] Shayy Landry MD [address] [address] Social History Tobacco Use Types Packs/Day Years Used Date Smoking Tobacco: Never Assessed Comments Unknown Sex and Gender Information Value Date Recorded Sex Assigned at Not on file Legal Sex Female 3:40 AM METHODOLOGIST Gender Identity Not on file Sexual Orientation Not on file documented as of this encounter Plan of Treatment Not on file documented as of this encounter Visit Diagnoses Not on filedocumented in this encounter Additional Health Concerns Infection Onset Date Last Indicated Resolved Time R/O COVID-19 01/31/2020 01/31/2020 02/02/2020 10:3 2 AM CDT documented as of this encounter Care Teams Pointing Machine Operator Relationship Specialty Start Date End Date Areli Gurrola MD [address] [facility] [place] [address] PCP - General Specialist 08/12/19 documented as of this encounter
--- OUTSIDE RECORDS SUMMARY | 2025-03-23 18:24 | XMS_ITS | Encounter Summary ---
Author Organization [facility] Address [address] [place] [address] Care Team Providers Care Lost Charge Card Clerk Name Role Phone Areli Gurrola MD Primary Care Provider Encounter Details Date Type Department Care Team (Late st Contact Info) Description 10/27/2002 Emergency [facility] [address] [place] [address] Cira Archibald MD NO ADDRESS ON FILE FEMALE GENITAL SYMPTOMS NOS (Primary Dx) Social History Tobacco Use Types Packs/Day Years Used Date Smoking Tobacco: Never Assessed Comments Unknown Sex and Gender Information Value Date Recorded Sex Assigned at Not on file Legal Sex Female 3:40 AM POCKET ASSEMBLER Gender Identity Not on file Sexual [...] documented as of this encounter Care Teams Lost Charge Card Clerk Relationship Specialty Start Date End Date Areli Gurrola MD [address] [place] [address] PCP - General Specialist 08/12/19 documented as of this encounter
--- OUTSIDE RECORDS SUMMARY | 2025-03-23 18:24 | XMS_ITS | Encounter Summary ---
Author Organization [facility] Address [address] [place] [address] Care Team Providers Care Powerhouse Mechanic Supervisor Name Role Phone Areli Gurrola MD Primary Care Provider Encounter Details Date Type Department Care Team (Late st Contact Info) Description 03/30/1999 Outpatient Historical [facility] Social History Tobacco Use Types Packs/Day Years Used Date Smoking Tobacco: Never Assessed Comments Unknown Sex and Gender Information Value Date Recorded Sex Assigned at Not on file Legal Sex Female 3:40 AM TOWN JUSTICE Gender Identity Not on file Sexual Orientation Not on file documented as of this encounter Plan of Treatment Not on file documented as of this encounter Visit Diagnoses Not on filedocumented in this encounter Additional Health Concerns Infection Onset Date Last Indicated Resolved Time R/O COVID-19 01/31/2020 01/31/2020 02/02/2020 10:3 2 AM CDT documented as of this encounter Care Teams Powerhouse Mechanic Supervisor Relationship Specialty Start Date End Date Areli Gurrola MD [address] [place] [address] PCP - General Specialist 08/12/19 documented as of this encounter
--- OUTSIDE RECORDS SUMMARY | 2025-03-23 18:24 | XMS_ITS | Encounter Summary ---
Author Organization [facility] Address [address] [place] [address] Care Team Providers Care Laborer Pipeline Name Role Phone Areli Gurrola MD Primary Care Provider Encounter Details Date Type Department Care Team (Latest Contact Info) Description 03/06/2005 Outpatient Historical [facility] [address] [place] [address] Trell York MD [address] [place] [phone] DENTAL DISORDER NOS (Primary Dx); CERVICALGIA; LUMBAGO; DYSTHYMIC DISORDER Social History Tobacco Use Types Packs/Day Years Used Date Smoking Tobacco: Never Assessed Comments Unknown Sex and Gender Information Value Date Recorded Sex Assigned at Not on file Legal Sex Female 3:40 AM SALES ASSISTANT DISPLAYS Gender Identity Not on file Sexual Orientation [...] as of this encounter Care Teams Laborer Pipeline Relationship Specialty Start Date End Date Areli Gurrola MD [address] [facility] [place] [address] PCP - General Specialist 08/12/19 documented as of this encounter
--- OUTSIDE RECORDS SUMMARY | 2025-03-23 18:24 | XMS_ITS | Encounter Summary ---
Author Organization [facility] Address [address] [place] [address] Care Team Providers Care Manager Interventional Name Role Phone Areli Gurrola MD Primary Care Provider Encounter Details Date Type Department Care Team (Latest Contact Info) Description 09/09/2003 Outpatient Historical [facility] [address] [place] [address] Trell York MD [address] [place] [phone] CERVICALGIA (Primary Dx) Social History Tobacco Use Types Packs/Day Years Used Date Smoking Tobacco: Never Assessed Comments Unknown Sex and Gender Information Value Date Recorded Sex Assigned at Not on file Legal Sex Female 3:40 AM EDGE BANDER HAND Gender Identity Not on file Sexual Orientation Not on file documented as of this encounter Plan of Treatment Not on file documented as of this encounter Visit Diagnoses Diagnosis Cervicalgia- Primary documented in this encounter Additional Health Concerns Infection Onset Date Last Indicated Resolved Time R/O COVID-19 01/31/2020 01/31/2020 02/02/2020 10:3 2 AM CDT documented as of this encounter Care Teams Manager Interventional Relationship Specialty Start Date End Date Areli Gurrola MD [address] [facility] [place] [address] PCP - General Specialist 08/12/19 documented as of this encounter
--- OUTSIDE RECORDS SUMMARY | 2025-03-23 18:24 | XMS_ITS | Encounter Summary ---
Author Organization [facility] Address [address] [place] [address] Care Team Providers Care Failure Analysis Engineer Name Role Phone Areli Gurrola MD Primary Care Provider Encounter Details Date Type Department Care Team (Latest Contact Info) Description 02/20/2005 Outpatient [facility] [address] [place] [address] Trell York MD [address] [place] [phone] LUMBAGO (Primary Dx); DYSTHYMIC DISORDER; ANXIETY STATE NOS; CERVICALGIA Social History Tobacco Use Types Packs/Day Years Used Date Smoking Tobacco: Never Assessed Comments Unknown Sex and Gender Information Value Date Recorded Sex Assigned at Not on file Legal Sex Female 3:40 AM SUPERVISOR RIDE ASSEMBLY Gender Identity Not on file Sexual [...] documented as of this encounter Care Teams Failure Analysis Engineer Relationship Specialty Start Date End Date Areli Gurrola MD [address] [place] [address] PCP - General Specialist 08/12/19 documented as of this encounter
--- OUTSIDE RECORDS SUMMARY | 2025-03-23 18:24 | XMS_ITS | Encounter Summary ---
Author Organization [facility] Address [address] [place] [address] Care Team Providers Care Customer Care Assistant Name Role Phone Areli Gurrola MD Primary Care Provider Encounter Details Date Type Department Care Team (Latest Contact Info) Description 03/14/1999 Outpatient [facility] [address] [place] [address] Ti Rondon MD [address] [place] [address] Abdominal pain, unspecified site (Primary Dx); Fever and other physiologic disturbances of temperature regulation; Backache, unspecified Social History Tobacco Use Types Packs/Day Years Used Date Smoking Tobacco: Never Assessed Comments Unknown Sex and Gender Information Value Date Recorded Sex Assigned at Not on file Legal Sex Female 3:40 AM TOURS CAPTAIN Gender Identity Not on file Sexual [...] of this encounter Care Teams Customer Care Assistant Relationship Specialty Start Date End Date Areli Gurrola MD [address] [place] [address] PCP - General Specialist 08/12/19 documented as of this encounter
--- OUTSIDE RECORDS SUMMARY | 2025-03-23 18:24 | XMS_ITS | Encounter Summary ---
Author Organization [facility] Address [address] [place] [address] Care Team Providers Care Cement Side Laster Name Role Phone Areli Gurrola MD Primary Care Provider Encounter Details Date Type Department Care Team (Late st Contact Info) Description 07/07/2004 Outpatient Historical [facility] Imaging Services [facility] [address] [place] [address] Social History Tobacco Use Types Packs/Day Years Used Date Smoking Tobacco: Never Assessed Comments Unknown Sex and Gender Information Value Date Recorded Sex Assigned at Not on file Legal Sex Female 3:40 AM FINANCIAL QUANTITATIVE ANALYST Gender Identity Not on file Sexual Orientation Not on file documented as of this encounter Plan of Treatment Not on file documented as of this encounter Visit Diagnoses Not on filedocumented in this encounter Additional Health Concerns Infection Onset Date Last Indicated Resolved Time R/O COVID-19 01/31/2020 01/31/2020 02/02/2020 10:3 2 AM CDT documented as of this encounter Care Teams Cement Side Laster Relationship Specialty Start Date End Date Areli Gurrola MD [address] [place] [address] PCP - General Specialist 08/12/19 documented as of this encounter
--- OUTSIDE RECORDS SUMMARY | 2025-03-23 18:24 | XMS_ITS | Encounter Summary ---
Author Organization [facility] Address [address] [place] [address] Care Team Providers Care Devops Engineer Name Role Phone Areli Gurrola MD Primary Care Provider Encounter Details Date Type Department Care Team (Late st Contact Info) Description 05/14/2003 Outpatient Historical [facility] [address] [place] [address] Roman Law, DO [address] [place] [phone] ACUTE SINUSITIS NOS (Primary Dx) Social History Tobacco Use Types Packs/Day Years Used Date Smoking Tobacco: Never Assessed Comments Unknown Sex and Gender Information Value Date Recorded Sex Assigned at Not on file Legal Sex Female 3:40 AM OPHTHALMOLOGY ASSISTANT Gender Identity Not on file Sexual [...] documented as of this encounter Care Teams Devops Engineer Relationship Specialty Start Date End Date Areli Gurrola MD [address] [place] [address] PCP - General Specialist 08/12/19 documented as of this encounter
--- OUTSIDE RECORDS SUMMARY | 2025-03-23 18:24 | XMS_ITS | Encounter Summary ---
Author Organization [facility] Address [address] [place] [address] Care Team Providers Care Ball Holder Name Role Phone Areli Gurrola MD Primary Care Provider Encounter Details Date Type Department Care Team (Latest Contact Info) Description 10/11/[address] [facility] [address] [place] [address] Trell York MD [address] [place] [phone] Dysthymic Disorder (Primary Dx); Lumbago Social History Tobacco Use Types Packs/Day Years Used Date Smoking Tobacco: Never Assessed Comments Unknown Sex and Gender Information Value Date Recorded Sex Assigned at Not on file Legal Sex Female 3:40 AM FUEL CELL BATTERY TECHNICIAN Gender Identity Not on file Sexual [...] documented as of this encounter Care Teams Ball Holder Relationship Specialty Start Date End Date Areli Gurrola MD [address] [facility] [place] [address] PCP - General Specialist 08/12/19 documented as of this encounter
--- OUTSIDE RECORDS SUMMARY | 2025-03-23 18:24 | XMS_ITS | Encounter Summary ---
Author Organization [facility] Address [address] [place] [address] Care Team Providers Care Heating And Cooling Technician Name Role Phone Areli Gurrola MD Primary Care Provider Encounter Details Date Type Department Care Team (Latest Contact Info) Description 06/26/2003 Outpatient Historical [facility] Cardiology [facility]illary [facility] [address] [place] [address] Jim Matos MD [address] [address] [place] [address] PRECORDIAL PAIN (Primary Dx) Social History Tobacco Use Types Packs/Day Years Used Date Smoking Tobacco: Never Assessed Comments Unknown Sex and Gender Information Value Date Recorded Sex Assigned at Not on file Legal Sex Female 3:40 AM BIOINFORMATICS SCIENTIST Gender Identity Not on file Sexual Orientation Not on file documented as of this encounter Plan of Treatment Not on file documented as of this encounter Visit Diagnoses Diagnosis Precordial pain- Primary documented in this encounter Additional Health Concerns Infection Onset Date Last Indicated Resolved Time R/O COVID-19 01/31/2020 01/31/2020 02/02/2020 10:3 2 AM CDT documented as of this encounter Care Teams Heating And Cooling Technician Relationship Specialty Start Date End Date Areli Gurrola MD [address] [facility] [place] [address] PCP - General Specialist 08/12/19 documented as of this encounter
--- OUTSIDE RECORDS SUMMARY | 2025-03-23 18:24 | XMS_ITS | Encounter Summary ---
Author Organization [facility] Address [address] [place] [address] Care Team Providers Care Facility Rehab Director Name Role Phone Areli Gurrola MD Primary Care Provider Encounter Details Date Type Department Care Team (Latest Contact Info) Description 07/07/2004 Outpatient Historical [facility] Imaging Services [place] [address] [place] [address] Trell York MD [address] [place] [phone] CERVICAL DISC DISPLACMNT (Primary Dx) Social History Tobacco Use Types Packs/Day Years Used Date Smoking Tobacco: Never Assessed Comments Unknown Sex and Gender Information Value Date Recorded Sex Assigned at Not on file Legal Sex Female 3:40 AM TUFTING SUPERVISOR Gender Identity Not on file Sexual [...] documented as of this encounter Care Teams Facility Rehab Director Relationship Specialty Start Date End Date Areli Gurrola MD [address] [facility] [place] [place] [address] PCP - General Specialist 08/12/19 documented as of this encounter
--- OUTSIDE RECORDS SUMMARY | 2025-03-23 18:24 | XMS_ITS | Encounter Summary ---
Author Organization [facility] Address [address] [place] [address] Care Team Providers Care Product Support Consultant Name Role Phone Areli Gurrola MD Primary Care Provider Encounter Details Date Type Department Care Team (Late st Contact Info) Description 03/11/1999 Outpatient Historical HIS [facility] Social History Tobacco Use Types Packs/Day Years Used Date Smoking Tobacco: Never Assessed Comments Unknown Sex and Gender Information Value Date Recorded Sex Assigned at Not on file Legal Sex Female 3:40 AM BLOCK GREASER Gender Identity Not on file Sexual Orientation Not on file documented as of this encounter Plan of Treatment Not on file documented as of this encounter Visit Diagnoses Not on filedocumented in this encounter Additional Health Concerns Infection Onset Date Last Indicated Resolved Time R/O COVID-19 01/31/2020 01/31/2020 02/02/2020 10:3 2 AM CDT documented as of this encounter Care Teams Product Support Consultant Relationship Specialty Start Date End Date Areli Gurrola MD [address] [place] [address] PCP - General Specialist 08/12/19 documented as of this encounter
--- OUTSIDE RECORDS SUMMARY | 2025-03-23 18:24 | XMS_ITS | Encounter Summary ---
Author Organization [facility] Address [address] [place] [address] Care Team Providers Care Tube Puller Name Role Phone Areli Gurrola MD Primary Care Provider Encounter Details Date Type Department Care Team (Latest Contact Info) Description 07/26/1998 Outpatient Historical HIS [facility] Charli Perez MD NO ADDRESS ON FILE Other specified aftercare following surgery (Primary Dx) Social History Tobacco Use Types Packs/Day Years Used Date Smoking Tobacco: Never Assessed Comments Unknown Sex and Gender Information Value Date Recorded Sex Assigned at Not on file Legal Sex Female 3:40 AM GRAPHIC ARTS TECHNICIAN Gender Identity Not on file Sexual [...] as of this encounter Care Teams Tube Puller Relationship Specialty Start Date End Date Areli Gurrola MD [address] [place] [address] PCP - General Specialist 08/12/19 documented as of this encounter
--- OUTSIDE RECORDS SUMMARY | 2025-03-23 18:24 | XMS_ITS | Encounter Summary ---
Author Organization [facility] Address [address] [place] [address] Care Team Providers Care Manager Of Corporate Communications Name Role Phone Areli Gurrola MD Primary Care Provider Encounter Details Date Type Department Care Team (Latest Contact Info) Description 02/14/1999 Outpatient Historical [facility] [place] [place] [address] Alumno, Gibran Lynn MD [address] [place] [address] Sprain and strain of other specified sites of shoulder and upper arm (Primary Dx) Social History Tobacco Use Types Packs/Day Years Used Date Smoking Tobacco: Never Assessed Comments Unknown Sex and Gender Information Value Date Recorded Sex Assigned at Not on file Legal Sex Female 3:40 AM PROFESSIONAL BASS FISHERMAN Gender Identity Not on file Sexual Orientation [...] as of this encounter Care Teams Manager Of Corporate Communications Relationship Specialty Start Date End Date Areli Gurrola MD [address] [place] [address] PCP - General Specialist 08/12/19 documented as of this encounter
--- OUTSIDE RECORDS SUMMARY | 2025-03-23 18:24 | XMS_ITS | Encounter Summary ---
Author Organization [facility] Address [address] [place] [address] Care Team Providers Care Grad Intern Name Role Phone Areli Gurrola MD Primary Care Provider Encounter Details Date Type Department Care Team (Latest Contact Info) Description 10/09/2002 Outpatient Historical [facility] [place] [address] [place] [address] Gordon Cabral MD NO ADDRESS ON FILE Excessive menstruation (Primary Dx) Social History Tobacco Use Types Packs/Day Years Used Date Smoking Tobacco: Never Assessed Comments Unknown Sex and Gender Information Value Date Recorded Sex Assigned at Not on file Legal Sex Female 3:40 AM DYE TANK TENDER Gender Identity Not on file [...] documented as of this encounter Care Teams Grad Intern Relationship Specialty Start Date End Date Areli Gurrola MD [address] [place] [address] PCP - General Specialist 08/12/19 documented as of this encounter
--- OUTSIDE RECORDS SUMMARY | 2025-03-23 18:24 | XMS_ITS | Encounter Summary ---
Author Organization [facility] Address [address] [place] [address] Care Team Providers Care Software Engineer Web Services Name Role Phone Areli Gurrola MD Primary Care Provider Encounter Details Date Type Department Care Team (Latest Contact Info) Description 02/02/1999 Outpatient Historical [facility] [place] [place] [address] Alumno, Gibran Lynn MD [address] [place] [address] Sprain and strain of other specified sites of shoulder and upper arm (Primary Dx); Hx musculoskletl dis NEC Social History Tobacco Use Types Packs/Day Years Used Date Smoking Tobacco: Never Assessed Comments Unknown Sex and Gender Information Value Date Recorded Sex Assigned at Not on file Legal Sex Female 3:40 AM PHLEBOTOMY COORDINATOR Gender Identity Not on file Sexual [...] as of this encounter Care Teams Software Engineer Web Services Relationship Specialty Start Date End Date Areli Gurrola MD [address] [place] [address] PCP - General Specialist 08/12/19 documented as of this encounter
--- OUTSIDE RECORDS SUMMARY | 2025-03-23 18:24 | XMS_ITS | Encounter Summary ---
Author Organization [facility] Address [address] [place] [address] Care Team Providers Care Communication Studies Professor Name Role Phone Areli Gurrola MD Primary Care Provider Encounter Details Date Type Department Care Team (Latest Contact Info) Description 03/09/1999 Outpatient [facility] [place] [place] [address] Alumno, Gibran Lynn MD [address] [place] [address] Sprain and strain of unspecified site of shoulder and upper arm (Primary Dx); Backache, unspecified Social History Tobacco Use Types Packs/Day Years Used Date Smoking Tobacco: Never Assessed Comments Unknown Sex and Gender Information Value Date Recorded Sex Assigned at Not on file Legal Sex Female 3:40 AM REGIONAL SALES DIRECTOR Gender Identity Not on file Sexual [...] documented as of this encounter Care Teams Communication Studies Professor Relationship Specialty Start Date End Date Areli Gurrola MD [address] [place] [address] PCP - General Specialist 08/12/19 documented as of this encounter
--- OUTSIDE RECORDS SUMMARY | 2025-03-23 18:24 | XMS_ITS | Encounter Summary ---
Author Organization [facility] Address [address] [place] [address] Care Team Providers Care Porcelain Enamel Sprayer Name Role Phone Areli Gurrola MD Primary Care Provider Encounter Details Date Type Department Care Team (Latest Contact Info) Description 09/12/[address] [facility] [address] [place] [address] Trell Maria Jr., MD [address] [place] [address] Anxiety State, Unspecified (Primary Dx) Social History Tobacco Use Types Packs/Day Years Used Date Smoking Tobacco: Never Assessed Comments Unknown Sex and Gender Information Value Date Recorded Sex Assigned at Not on file Legal Sex Female 3:40 AM METER READER INSPECTOR Gender Identity Not on file Sexual [...] documented as of this encounter Care Teams Porcelain Enamel Sprayer Relationship Specialty Start Date End Date Areli Gurrola MD [address] [facility] [place] [address] PCP - General Specialist 08/12/19 documented as of this encounter
--- OUTSIDE RECORDS SUMMARY | 2025-03-23 18:24 | XMS_ITS | Encounter Summary ---
Author Organization [facility] Address [address] [place] [address] Care Team Providers Care Application Development Liaison Name Role Phone Areli Gurrola MD Primary Care Provider Encounter Details Date Type Department Care Team (Latest Contact Info) Description 10/22/2002 Outpatient Historical [facility] Operating Room [address] [place] [address] Gordon Cabral MD NO ADDRESS ON FILE POLYP OF CORPUS UTERI (Primary Dx) Social History Tobacco Use Types Packs/Day Years Used Date Smoking Tobacco: Never Assessed Comments Unknown Sex and Gender Information Value Date Recorded Sex Assigned at Not on file Legal Sex Female 3:40 AM PIT SUPERVISOR Gender Identity Not on file Sexual [...] as of this encounter Care Teams Application Development Liaison Relationship Specialty Start Date End Date Areli Gurrola MD [address] [place] [address] PCP - General Specialist 08/12/19 documented as of this encounter
--- OUTSIDE RECORDS SUMMARY | 2025-03-23 18:24 | XMS_ITS | Encounter Summary ---
Author Organization [facility] Address [address] Attn: [place] [address] Care Team Providers Care Kitchen Cleaner Name Role Phone Areli Gurrola MD Primary Care Provider Encounter Details Date Type Department Care Team (Late st Contact Info) Description 03/12/1999 Outpatient Historical Alumno, Gibran Lynn MD [address] [facility] [address] [place] [address] Social History Tobacco Use Types Packs/Day Years Used Date Smoking Tobacco: Never Assessed Comments Unknown Sex and Gender Information Value Date Recorded Sex Assigned at Not on file Legal Sex Female 3:40 AM JAVA DEVELOPER WITH SECURITY CLEARANCE Gender Identity Not on file Sexual Orientation Not on file documented as of this encounter Plan of Treatment Not on file documented as of this encounter Visit Diagnoses Not on filedocumented in this encounter Additional Health Concerns Infection Onset Date Last Indicated Resolved Time R/O COVID-19 01/31/2020 01/31/2020 02/02/2020 10:3 2 AM CDT documented as of this encounter Care Teams Kitchen Cleaner Relationship Specialty Start Date End Date Areli Gurrola MD [address] [facility] [place] [address] PCP - General Specialist 08/12/19 documented as of this encounter
--- OUTSIDE RECORDS SUMMARY | 2025-03-23 18:24 | XMS_ITS | Encounter Summary ---
Author Organization [facility] Address [address] [place] [address] Care Team Providers Care Business Development Associate Name Role Phone Areli Gurrola MD Primary Care Provider Encounter Details Date Type Department Care Team (Latest Contact Info) Description 06/22/2003 Outpatient Historical [facility] [address] [place] [address] Trell York MD [address] [place] [phone] CHEST PAIN NOS (Primary Dx); ABN INVOLUN MOVEMENT NEC; CERVICALGIA Social History Tobacco Use Types Packs/Day Years Used Date Smoking Tobacco: Never Assessed Comments Unknown Sex and Gender Information Value Date Recorded Sex Assigned at Not on file Legal Sex Female 3:40 AM OVEN TENDER Gender Identity Not on file Sexual [...] as of this encounter Care Teams Business Development Associate Relationship Specialty Start Date End Date Areli Gurrola MD [address] [facility] [place] [address] PCP - General Specialist 08/12/19 documented as of this encounter
--- OUTSIDE RECORDS SUMMARY | 2025-03-23 18:24 | XMS_ITS | Encounter Summary ---
Author Organization [facility] Address [address] [place] [address] Care Team Providers Care Sales Consulting Director Name Role Phone Areli Gurrola MD Primary Care Provider Encounter Details Date Type Department Care Team (Latest Contact Info) Description 05/20/2003 Outpatient Historical [facility] [address] [place] [address] Trell York MD [address] [place] [phone] ACUTE BRONCHITIS (Primary Dx) Social History Tobacco Use Types Packs/Day Years Used Date Smoking Tobacco: Never Assessed Comments Unknown Sex and Gender Information Value Date Recorded Sex Assigned at Not on file Legal Sex Female 3:40 AM AUTOMOTIVE SALES ASSOCIATE Gender Identity Not on file [...] as of this encounter Care Teams Sales Consulting Director Relationship Specialty Start Date End Date Areli Gurrola MD [address] [facility] [place] [address] PCP - General Specialist 08/12/19 documented as of this encounter
--- OUTSIDE RECORDS SUMMARY | 2025-03-23 18:24 | XMS_ITS | Encounter Summary ---
Author Organization [facility] Address [address] [place] [address] Care Team Providers Care Senior Sas Programmer Name Role Phone Areli Gurrola MD Primary Care Provider Encounter Details Date Type Department Care Team (Latest Contact Info) Description 07/05/1998 Outpatient Historical HIS [facility] Charli Perez MD NO ADDRESS ON FILE Other specified aftercare following surgery (Primary Dx) Social History Tobacco Use Types Packs/Day Years Used Date Smoking Tobacco: Never Assessed Comments Unknown Sex and Gender Information Value Date Recorded Sex Assigned at Not on file Legal Sex Female 3:40 AM POLICE RADIO DISPATCHER Gender Identity Not on file Sexual [...] as of this encounter Care Teams Senior Sas Programmer Relationship Specialty Start Date End Date Areli Gurrola MD [address] [place] [address] PCP - General Specialist 08/12/19 documented as of this encounter
--- OUTSIDE RECORDS SUMMARY | 2025-03-23 18:24 | XMS_ITS | Encounter Summary ---
Author Organization [facility] Address [address] [place] [address] Care Team Providers Care Metalworker Name Role Phone Areli Gurrola MD Primary Care Provider Encounter Details Date Type Department Care Team (Latest Contact Info) Description 09/14/2004 Outpatient Historical [facility] [address] [place] [address] Trell York MD [address] [place] [phone] DYSTHYMIC DISORDER (Primary Dx); CERVICALGIA; LUMBAGO Social History Tobacco Use Types Packs/Day Years Used Date Smoking Tobacco: Never Assessed Comments Unknown Sex and Gender Information Value Date Recorded Sex Assigned at Not on file Legal Sex Female 3:40 AM MATH INTERVENTIONIST Gender Identity Not on file Sexual Orientation [...] documented as of this encounter Care Teams Metalworker Relationship Specialty Start Date End Date Areli Gurrola MD [address] [facility] [place] [address] PCP - General Specialist 08/12/19 documented as of this encounter
--- OUTSIDE RECORDS SUMMARY | 2025-03-23 18:24 | XMS_ITS | Encounter Summary ---
Author Organization [facility] Address [address] [place] [address] Care Team Providers Care Health Officer Name Role Phone Areli Gurrola MD Primary Care Provider Encounter Details Date Type Department Care Team (Latest Contact Info) Description 10/20/2002 Outpatient Historical [facility] [address] [place] [address] Gordon Cabral MD NO ADDRESS ON FILE PREOP EXAM OTHER SPECIFIED (Primary Dx) Social History Tobacco Use Types Packs/Day Years Used Date Smoking Tobacco: Never Assessed Comments Unknown Sex and Gender Information Value Date Recorded Sex Assigned at Not on file Legal Sex Female 3:40 AM STEP FINISHER Gender Identity Not on file Sexual [...] as of this encounter Care Teams Health Officer Relationship Specialty Start Date End Date Areli Gurrola MD [address] [place] [address] PCP - General Specialist 08/12/19 documented as of this encounter
--- OUTSIDE RECORDS SUMMARY | 2025-03-23 18:24 | XMS_ITS | Encounter Summary ---
Author Organization [facility] Address [address] [place] [address] Care Team Providers Care Audio Visual Production Specialist Name Role Phone Areli Gurrola MD Primary Care Provider Encounter Details Date Type Department Care Team (Latest Contact Info) Description 07/06/2004 Outpatient Historical [facility] [address] [place] [address] Trell York MD [address] [place] [address] DYSTHYMIC DISORDER (Primary Dx); BACKACHE NOS; CERVICALGIA Social History Tobacco Use Types Packs/Day Years Used Date Smoking Tobacco: Never Assessed Comments Unknown Sex and Gender Information Value Date Recorded Sex Assigned at Not on file Legal Sex Female 3:40 AM UNIT NURSE Gender Identity Not on file Sexual [...] documented as of this encounter Care Teams Audio Visual Production Specialist Relationship Specialty Start Date End Date Areli Gurrola MD [address] [facility] [place] [address] PCP - General Specialist 08/12/19 documented as of this encounter
--- OUTSIDE RECORDS SUMMARY | 2025-03-23 18:24 | XMS_ITS | Encounter Summary ---
Author Organization [facility] Address [address] [place] [address] Care Team Providers Care Chemistry Account Manager Name Role Phone Areli Gurrola MD Primary Care Provider Encounter Details Date Type Department Care Team (Latest Contact Info) Description 07/19/1998 Outpatient Historical HIS [facility] Charli Perez MD NO ADDRESS ON FILE Scar condition and fibrosis of skin (Primary Dx) Social History Tobacco Use Types Packs/Day Years Used Date Smoking Tobacco: Never Assessed Comments Unknown Sex and Gender Information Value Date Recorded Sex Assigned at Not on file Legal Sex Female 3:40 AM RADIO DESPATCHER Gender Identity Not on file Sexual Orientation [...] as of this encounter Care Teams Chemistry Account Manager Relationship Specialty Start Date End Date Areli Gurrola MD [address] [place] [address] PCP - General Specialist 08/12/19 documented as of this encounter
--- OUTSIDE RECORDS SUMMARY | 2025-03-23 18:24 | XMS_ITS | Patient Health Record ---
Author Organization [facility] Address [address] [facility] [address] Care Team Providers Care City Planning Teacher Name Role Phone Joseph Lewis MD Primary Care Provider Zane Joiner Unavailable [phone] ELROY BOOTHE Unavailable Unavailable Reason For Referral Reason eval and treat Diagnosis 1 Radiculopathy, lumba r region (M54.16) Referring Provider First Name Aida Referring Provider Last Name Carlton Referring Provider Speciality Physician Energy Assistant Referred Organization [facility] Referred Provider Tam Fairchild Referred Address [address] [facility],[address], Referred Provider Specialty Intervention al Pain Medicine [...] drug interaction check* Fluticasone Furoate 27.5mcg/1spray Nasal [place] Use 2 spray(s) in each nostril daily 05/28/2008 Active Immunizations Vaccine Route Administration Date Status Comme nts Influenza (whole), CPT 33764 Inactive Unknown 10/15/2018 Administered Social History Social [...] W/U Status Risk Notes Problem Alcohol abuse with alcohol-induced mood disorder (F10.14) Active confirmed Problem Severe recurrent major depression without psychotic features (57173532) Major depressive disorder, 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.2) Active confirmed Problem Severe recurrent major depression with psychotic features (83888947) Major depressive disorder, recurrent, 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) Active confirmed Problem Adjustment disorder with mixed disturbance of emotions AND conduct (59976769) Adjustment disorder with mixed disturbance of emotions and conduct (F43.25) Active confirmed Problem Borderline personality disorder (12237804) Borderline personality disorder (F60.3) Active confirmed Problem Lumbar radiculopathy (392318148) Radiculopathy, lumbar region (M54.16) Active confirmed Problem History of psychiatric disorder (719207161) Personal history of other mental and behavioral disorders (Z86.59) Active confirmed Problem Alcohol abuse (47853302) Alcohol abuse (F10.10) Active confirmed Problem Major depression, single episode (91091738) Depression, major (F32.9) Active confirmed Problem History of methamphetamine abuse (situation) (38976157563459497 ) 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 confirmed Problem Chronic pain (57352759) Chronic pain (G89.29) Active confirmed Problem Polysubstance abuse (974279465) Polysubstance abuse (F19.10) Active confirmed Problem Cannabis abuse (64920997) Cannabis abuse (F12.10) Active confirmed Problem Low back pain (086677311) Low back pain (724.2) 009 Active confirmed [id number] 911- Problem Fibromyalgia (117318989) Fibromyalgia (729.1) 009 Problem resolved confirmed [id number] 911- Plan Of Treatment No Information Insurance Providers Payer Name Payer Address Payer Phone Subscriber Number Group Number Insured Name Patient Relationship to Insured Coverage Start Date Coverage End Date [facility] Commercial [address] [address] [place] [address] [id number] Kay Gamboa Self - patient is the insured MD Medicaid [address] [place] [address] [id number] Kay Gamboa Self - patient is the insured Medical (General) History Surgical History Surgery Date(Month/Year) Appendectomy Biopsy of Bone Marrow Carpal tunnel surgery Gallbladder surgery Hysterectomy Laminectomy Tonsillectomy
--- OUTSIDE RECORDS SUMMARY | 2025-03-23 18:24 | XMS_ITS | Encounter Summary ---
Author Organization [facility] Address [address] [place] [address] Care Team Providers Care Chalker Soles Name Role Phone Areli Gurrola MD Primary Care Provider Encounter Details Date Type Department Care Team (Late st Contact Info) Description 03/31/1999 Outpatient Historical HIS [facility] Social History Tobacco Use Types Packs/Day Years Used Date Smoking Tobacco: Never Assessed Comments Unknown Sex and Gender Information Value Date Recorded Sex Assigned at Not on file Legal Sex Female 3:40 AM SOLE EDGE INKER MACHINE Gender Identity Not on file Sexual Orientation Not on file documented as of this encounter Plan of Treatment Not on file documented as of this encounter Visit Diagnoses Not on filedocumented in this encounter Additional Health Concerns Infection Onset Date Last Indicated Resolved Time R/O COVID-19 01/31/2020 01/31/2020 02/02/2020 10:3 2 AM CDT documented as of this encounter Care Teams Chalker Soles Relationship Specialty Start Date End Date Areli Gurrola MD [address] [place] [address] PCP - General Specialist 08/12/19 documented as of this encounter
--- OUTSIDE RECORDS SUMMARY | 2025-03-23 18:25 | XMS_ITS | Encounter Summary ---
Author Organization [facility] Address [address] [place] [address] Care Team Providers Care Color Adviser Name Role Phone Areli Gurrola MD Primary Care Provider Encounter Details Date Type Department Care Team (Late st Contact Info) Description 04/14/2002 [facility]patient [facility] [address] [place] [address] Miguelangel Mas, NO ADDRESS ON FILE JOINT PAIN-ANKLE (Primary Dx) Social History Tobacco Use Types Packs/Day Years Used Date Smoking Tobacco: Never Assessed Comments Unknown Sex and Gender Information Value Date Recorded Sex Assigned at Not on file Legal Sex Female 3:40 AM CLIPMAN Gender Identity Not on file Sexual Orientation [...] as of this encounter Care Teams Color Adviser Relationship Specialty Start Date End Date Areli Gurrola MD [address] [facility] [place] [address] PCP - General Specialist 08/12/19 documented as of this encounter
--- OUTSIDE RECORDS SUMMARY | 2025-03-23 18:25 | XMS_ITS | Encounter Summary ---
Author Organization [facility] Address [address] [place] [address] Care Team Providers Care Brand Strategy Manager Name Role Phone Areli Gurrola MD Primary Care Provider Encounter Details Date Type Department Care Team (Latest Contact Info) Description 10/09/2002 Outpatient Historical [facility] [address] [place] [address] Gordon Cabral MD NO ADDRESS ON FILE Excessive menstruation (Primary Dx) Social History Tobacco Use Types Packs/Day Years Used Date Smoking Tobacco: Never Assessed Comments Unknown Sex and Gender Information Value Date Recorded Sex Assigned at Not on file Legal Sex Female 3:40 AM AGRICULTURAL SCIENCES PROFESSOR Gender Identity Not on file [...] as of this encounter Care Teams Brand Strategy Manager Relationship Specialty Start Date End Date Areli Gurrola MD [address] [place] [address] PCP - General Specialist 08/12/19 documented as of this encounter
--- OUTSIDE RECORDS SUMMARY | 2025-03-23 18:25 | XMS_ITS | Encounter Summary ---
Author Organization [facility] Address [address] [place] [address] Care Team Providers Care Tennis Centre Manager Name Role Phone Areli Gurrola MD Primary Care Provider Encounter Details Date Type Department Care Team (Latest Contact Info) Description 07/09/2002 Outpatient Historical [facility] [address] [place] [address] Trell York MD [address] [place] [phone] OTHER MALAISE AND FATIGUE (Primary Dx); CERVICALGIA [...] documented as of this encounter Care Teams Tennis Centre Manager Relationship Specialty Start Date End Date Areli Gurrola MD [address] [facility] [place] [address] PCP - General Specialist 08/12/19 documented as of this encounter
--- OUTSIDE RECORDS SUMMARY | 2025-03-23 18:25 | XMS_ITS | Encounter Summary ---
Author Organization [facility] Address [address] [place] [address] Care Team Providers Care X Ray Developing Machine Operator Name Role Phone Areli Gurrola MD Primary Care Provider Encounter Details Date Type Department Care Team (Latest Contact Info) Description 03/26/2002 Outpatient Historical [facility] [address] [place] [address] Trell York MD [address] [place] [phone] CERVICALGIA (Primary Dx); ABDOMINAL PAIN UNSPEC SITE Social History Tobacco Use Types Packs/Day Years Used Date Smoking Tobacco: Never Assessed Comments Unknown Sex and Gender Information Value Date Recorded Sex Assigned at Not on file Legal Sex Female 3:40 AM SLEEPING CAR PORTER Gender Identity Not on file Sexual Orientation [...] documented as of this encounter Care Teams X Ray Developing Machine Operator Relationship Specialty Start Date End Date Areli Gurrola MD [address] [facility] [place] [address] PCP - General Specialist 08/12/19 documented as of this encounter
--- OUTSIDE RECORDS SUMMARY | 2025-03-23 18:25 | XMS_ITS | Encounter Summary ---
Author Organization [facility] Address [address] [place] [address] Care Team Providers Care Carding Machine Feeder Name Role Phone Areli Gurrola MD Primary Care Provider Encounter Details Date Type Department Care Team (Latest Contact Info) Description 01/09/2002 Outpatient Historical [facility] [address] [place] [address] Trell York MD [address] [place] [phone] HEADACHE (Primary Dx); CERVICALGIA Social History Tobacco Use Types Packs/Day Years Used Date Smoking Tobacco: Never Assessed Comments Unknown Sex and Gender Information Value Date Recorded Sex Assigned at Not on file Legal Sex Female 3:40 AM ADJUNCT LATIN PROFESSOR Gender Identity Not on file Sexual [...] documented as of this encounter Care Teams Carding Machine Feeder Relationship Specialty Start Date End Date Areli Gurrola MD [address] [place] [phone] PCP - General Specialist 08/12/19 documented as of this encounter
--- OUTSIDE RECORDS SUMMARY | 2025-03-23 18:25 | XMS_ITS | Encounter Summary ---
Author Organization [facility] Address [address] [place] [address] Care Team Providers Care Sounding Device Operator Name Role Phone Areli Gurrola MD Primary Care Provider Encounter Details Date Type Department Care Team (Latest Contact Info) Description 03/20/2002 Outpatient Historical [facility] [address] [place] [address] Trell York MD [address] [place] [phone] ESOPHAGITIS, UNSPECIFIED (Primary Dx); CERVICALGIA; UNSPEC CONSTIPATION Social History Tobacco Use Types Packs/Day Years Used Date Smoking Tobacco: Never Assessed Comments Unknown Sex and Gender Information Value Date Recorded Sex Assigned at Not on file Legal Sex Female 3:40 AM WINDOWS SYSTEMS ADMINISTRATOR Gender Identity Not on file Sexual [...] documented as of this encounter Care Teams Sounding Device Operator Relationship Specialty Start Date End Date Areli Gurrola MD [address] [facility] [place] [place] [address] PCP - General Specialist 08/12/19 documented as of this encounter
--- OUTSIDE RECORDS SUMMARY | 2025-03-23 18:25 | XMS_ITS | Encounter Summary ---
Author Organization [facility] Address [address] [place] [address] Care Team Providers Care Physics Professor Name Role Phone Areli Gurrola MD Primary Care Provider Encounter Details Date Type Department Care Team (Latest Contact Info) Description 08/20/2001 Outpatient Historical [facility] [address] [place] [address] Trell York MD [address] [place] [phone] ACUTE PHARYNGITIS (Primary Dx) Social History Tobacco Use Types Packs/Day Years Used Date Smoking Tobacco: Never Assessed Comments Unknown Sex and Gender Information Value Date Recorded Sex Assigned at Not on file Legal Sex Female 3:40 AM CANDLE EXTRUSION MACHINE OPERATOR Gender Identity Not on file [...] documented as of this encounter Care Teams Physics Professor Relationship Specialty Start Date End Date Areli Gurrola MD [address] [facility] [place] [address] PCP - General Specialist 08/12/19 documented as of this encounter
--- OUTSIDE RECORDS SUMMARY | 2025-03-23 18:25 | XMS_ITS | Encounter Summary ---
Author Organization [facility] Address [address] [place] [address] Care Team Providers Care Dynamics Ax Solution Architect Name Role Phone Areli Gurrola MD Primary Care Provider Encounter Details Date Type Department Care Team (Latest Contact Info) Description 07/29/2001 Outpatient Historical [facility] [address] [place] [address] Trell York MD [address] [place] [phone] COMMON MIGRAINE W/O MENTN INTRACT (Primary Dx); LUMBAGO Social History Tobacco Use Types Packs/Day Years Used Date Smoking Tobacco: Never Assessed Comments Unknown Sex and Gender Information Value Date Recorded Sex Assigned at Not on file Legal Sex Female 3:40 AM JEWELRY CONSULTANT Gender Identity Not on file Sexual [...] of this encounter Care Teams Dynamics Ax Solution Architect Relationship Specialty Start Date End Date Areli Gurrola MD [address] [facility] [place] [address] PCP - General Specialist 08/12/19 documented as of this encounter
--- OUTSIDE RECORDS SUMMARY | 2025-03-23 18:25 | XMS_ITS | Encounter Summary ---
Author Organization [facility] Address [address] [place] [address] Care Team Providers Care Turnstile Attendant Name Role Phone Arlei Gurrola MD Primary Care Provider Encounter Details Date Type Department Care Team (Latest Contact Info) Description 10/03/2002 Outpatient [facility] [address] [place] [address] Gordon Cabral MD NO ADDRESS ON FILE METRORRHAGIA (Primary Dx) Social History Tobacco Use Types Packs/Day Years Used Date Smoking Tobacco: Never Assessed Comments Unknown Sex and Gender Information Value Date Recorded Sex Assigned at Not on file Legal Sex Female 3:40 AM PLASTIC PRESS MOLDER Gender Identity Not on file Sexual Orientation Not on file documented as of this encounter Plan of Treatment Not on file documented as of this encounter Visit Diagnoses Diagnosis Metrorrhagia- Primary documented in this encounter Additional Health Concerns Infection Onset Date Last Indicated Resolved Time R/O COVID-19 01/31/2020 01/31/2020 02/02/2020 10:3 2 AM CDT documented as of this encounter Care Teams Turnstile Attendant Relationship Specialty Start Date End Date Areli Gurrola MD [address] [place] [address] PCP - General Specialist 08/12/19 documented as of this encounter
--- OUTSIDE RECORDS SUMMARY | 2025-03-23 18:25 | XMS_ITS | Encounter Summary ---
Author Organization [facility] Address [address] [place] [address] Care Team Providers Care Public Stenographer Name Role Phone Areli Gurrola MD Primary Care Provider Encounter Details Date Type Department Care Team (Latest Contact Info) Description 12/04/2001 Outpatient [facility] [address] [place] [address] Trell York MD [address] [place] [phone] ACUTE BRONCHITIS (Primary Dx); COUGH Social History Tobacco Use Types Packs/Day Years Used Date Smoking Tobacco: Never Assessed Comments Unknown Sex and Gender Information Value Date Recorded Sex Assigned at Not on file Legal Sex Female 3:40 AM BIAZZI NITRATOR OPERATOR Gender Identity Not on file Sexual [...] documented as of this encounter Care Teams Public Stenographer Relationship Specialty Start Date End Date Areli Gurrola MD [address] [facility] [address] PCP - General Specialist 08/12/19 documented as of this encounter
--- OUTSIDE RECORDS SUMMARY | 2025-03-23 18:25 | XMS_ITS | Encounter Summary ---
Author Organization [employer] [facility] Address [address] [place] [address] Care Team Providers Care Wing Coverer Name Role Phone Areli Gurrola MD Primary Care Provider Encounter Details Date Type Department Care Team (Latest Contact Info) Description 10/03/2002 [facility] [address] [place] [address] [place] [address] Gordon Cabral MD NO ADDRESS ON FILE MENSTRUAL DISORDER NEC (Primary Dx) Social History Tobacco Use Types Packs/Day Years Used Date Smoking Tobacco: Never Assessed Comments Unknown Sex and Gender Information Value Date Recorded Sex Assigned at Not on file Legal Sex Female 3:40 AM RESEARCH ANIMAL FACILITY SUPERVISOR Gender Identity Not on file Sexual [...] documented as of this encounter Care Teams Wing Coverer Relationship Specialty Start Date End Date Areli Gurrola MD [address] [facility] [place] [address] PCP - General Specialist 08/12/19 documented as of this encounter
--- OUTSIDE RECORDS SUMMARY | 2025-03-23 18:25 | XMS_ITS | Encounter Summary ---
Author Organization [facility] Address [address] [place] [address] Care Team Providers Care Human Resources Trainee Name Role Phone Areli Gurrola MD Primary Care Provider Encounter Details Date Type Department Care Team (Latest Contact Info) Description 08/25/2002 Outpatient Historical [facility] [address] [place] [address] Trell York MD [address] [place] [phone] INSOMNIA NEC (Primary Dx); OTHER MALAISE AND FATIGUE; NEUROTIC DEPRESSION; CERVICALGIA Social History Tobacco Use Types Packs/Day Years Used Date Smoking Tobacco: Never Assessed Comments Unknown Sex and Gender Information Value Date Recorded Sex Assigned at Not on file Legal Sex Female 3:40 AM 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
--- OUTSIDE RECORDS SUMMARY | 2025-03-23 18:25 | XMS_ITS | Encounter Summary ---
Author Organization [facility] Address [address] [place] [address] Care Team Providers Care Cross Roller Name Role Phone Areli Gurrola MD Primary Care Provider Encounter Details Date Type Department Care Team (Late st Contact Info) Description 06/27/2001 Outpatient Historical [facility] Gen Spec Surg [address] [address] Renan Martinez MD [address] [place] [address] CHOLELITHIASIS NOS (Primary Dx); SURGERY FOLLOWUP, UNSPEC Social History Tobacco Use Types Packs/Day Years Used Date Smoking Tobacco: Never Assessed Comments Unknown Sex and Gender Information Value Date Recorded Sex Assigned at Not on file Legal Sex Female 3:40 AM DIRECTOR CLINICAL DATA Gender Identity Not on file Sexual Orientation [...] documented as of this encounter Care Teams Cross Roller Relationship Specialty Start Date End Date Areli uGrrola MD [address] [place] [address] PCP - General Specialist 08/12/19 documented as of this encounter
--- OUTSIDE RECORDS SUMMARY | 2025-03-23 18:25 | XMS_ITS | Encounter Summary ---
Author Organization [facility] Address [address] [place] [address] Care Team Providers Care Auto Service Dispatcher Name Role Phone Areli Gurrola MD Primary Care Provider Encounter Details Date Type Department Care Team (Latest Contact Info) Description 04/21/2003 Outpatient [facility] [address] [place] [address] Gordon Cabral MD NO ADDRESS ON FILE URIN TRACT INFECTION NOS (Primary Dx) Social History Tobacco Use Types Packs/Day Years Used Date Smoking Tobacco: Never Assessed Comments Unknown Sex and Gender Information Value Date Recorded Sex Assigned at Not on file Legal Sex Female 3:40 AM CONE EXAMINER Gender Identity Not on file Sexual [...] of this encounter Care Teams Auto Service Dispatcher Relationship Specialty Start Date End Date Areli Gurrola MD [address] [facility] [place] [address] PCP - General Specialist 08/12/19 documented as of this encounter
--- OUTSIDE RECORDS SUMMARY | 2025-03-23 18:25 | XMS_ITS | Encounter Summary ---
Author Organization [facility] Address [address] [place] [address] Care Team Providers Care Pig Machine Crane Operator Name Role Phone Areli Gurrola MD Primary Care Provider Encounter Details Date Type Department Care Team (Latest Contact Info) Description 12/18/2002 Outpatient [facility] [address] [place] [address] Gordon Cabral MD NO ADDRESS ON FILE PREOP EXAM OTHER SPECIFIED (Primary Dx); Excessive menstruation; FEMALE GENITAL SYMPTOMS NOS Social History Tobacco Use Types Packs/Day Years Used Date Smoking Tobacco: Never Assessed Comments Unknown Sex and Gender Information Value Date Recorded Sex Assigned at Not on file Legal Sex Female 3:40 AM CHANNEL WORKER Gender Identity Not on file Sexual [...] documented as of this encounter Care Teams Pig Machine Crane Operator Relationship Specialty Start Date End Date Areli Gurrola MD [address] [place] [address] PCP - General Specialist 08/12/19 documented as of this encounter
--- OUTSIDE RECORDS SUMMARY | 2025-03-23 18:25 | XMS_ITS | Encounter Summary ---
Author Organization [facility] Address [address] [place] [address] Care Team Providers Care Garment Form Assembler Name Role Phone Areli Gurrola MD Primary Care Provider Encounter Details Date Type Department Care Team (Latest Contact Info) Description 04/10/2002 Outpatient Historical [facility] Endoscopy Andrés [address] [facility] [address] [place] [address] Gildardo Ace MD [address] [place] [phone] ABDOMINAL PAIN EPIGASTRIC (Primary Dx) Social History Tobacco Use Types Packs/Day Years Used Date Smoking Tobacco: Never Assessed Comments Unknown Sex and Gender Information Value Date Recorded Sex Assigned at Not on file Legal Sex Female 3:40 AM MALE MODEL Gender Identity Not on file Sexual Orientation [...] as of this encounter Care Teams Garment Form Assembler Relationship Specialty Start Date End Date Areli Gurrola MD [address] [facility] [facility] [place] [address] PCP - General Specialist 08/12/19 documented as of this encounter
--- OUTSIDE RECORDS SUMMARY | 2025-03-23 18:25 | XMS_ITS | Encounter Summary ---
Author Organization [facility] Address [address] [place] [address] Care Team Providers Care Cessation Systems Outreach Specialist Name Role Phone Areli Gurrola MD Primary Care Provider Encounter Details Date Type Department Care Team (Latest Contact Info) Description 02/05/2003 Outpatient Historical [facility] [address] [place] [address] Gordon Cabral MD NO ADDRESS ON FILE SURGERY FOLLOWUP, UNSPEC (Primary Dx) Social History Tobacco Use Types Packs/Day Years Used Date Smoking Tobacco: Never Assessed Comments Unknown Sex and Gender Information Value Date Recorded Sex Assigned at Not on file Legal Sex Female 3:40 AM PATHOLOGIST Gender Identity Not on file Sexual [...] documented as of this encounter Care Teams Cessation Systems Outreach Specialist Relationship Specialty Start Date End Date Areli Gurrola MD [address] [facility] [place] [address] PCP - General Specialist 08/12/19 documented as of this encounter
--- OUTSIDE RECORDS SUMMARY | 2025-03-23 18:25 | XMS_ITS | Encounter Summary ---
Author Organization [facility] Address [address] [place] [address] Care Team Providers Care Hydramatic Mechanic Name Role Phone Areli Gurrola MD Primary Care Provider Encounter Details Date Type Department Care Team (Late st Contact Info) Description 04/14/2002 Outpatient [facility] [address] [place] [address] Miguelangel Mas, NO ADDRESS ON FILE SPRAIN OF ANKLE NOS (Primary Dx) Social History Tobacco Use Types Packs/Day Years Used Date Smoking Tobacco: Never Assessed Comments Unknown Sex and Gender Information Value Date Recorded Sex Assigned at Not on file Legal Sex Female 3:40 AM SEARCH CONSULTANT Gender Identity Not on file Sexual [...] documented as of this encounter Care Teams Hydramatic Mechanic Relationship Specialty Start Date End Date Areli Gurrola MD [address] [facility] [place] [address] PCP - General Specialist 08/12/19 documented as of this encounter
--- OUTSIDE RECORDS SUMMARY | 2025-03-23 18:25 | XMS_ITS | Encounter Summary ---
Author Organization [facility] Address [address] [place] [address] Care Team Providers Care Cinder Block Mason Name Role Phone Areli Gurrola MD Primary Care Provider Encounter Details Date Type Department Care Team (Latest Contact Info) Description 10/01/2002 Outpatient Historical [facility] [address] [place] [address] Trell York MD [address] [place] [phone] ACUTE SINUSITIS NOS (Primary Dx) Social History Tobacco Use Types Packs/Day Years Used Date Smoking Tobacco: Never Assessed Comments Unknown Sex and Gender Information Value Date Recorded Sex Assigned at Not on file Legal Sex Female 3:40 AM ARTIST MODEL Gender Identity Not on file Sexual [...] documented as of this encounter Care Teams Cinder Block Mason Relationship Specialty Start Date End Date Areli Gurrola MD [address] [facility] [place] [address] PCP - General Specialist 08/12/19 documented as of this encounter
--- OUTSIDE RECORDS SUMMARY | 2025-03-23 18:25 | XMS_ITS | Encounter Summary ---
Author Organization [facility] Address [address] [facility] Attn: [place] [address] Care Team Providers Care Photographic Printer Name Role Phone Areli Gurrola MD Primary Care Provider Encounter Details Date Type Department Care Team (Late st Contact Info) Description 07/30/2001 Outpatient Historical [place], Trell Pascual MD [address] [place] [phone] Social History Tobacco Use Types Packs/Day Years Used Date Smoking Tobacco: Never Assessed Comments Unknown Sex and Gender Information Value Date Recorded Sex Assigned at Not on file Legal Sex Female 3:40 AM ADVISORY INTERNSHIP Gender Identity Not on file Sexual Orientation Not on file documented as of this encounter Plan of Treatment Not on file documented as of this encounter Visit Diagnoses Not on filedocumented in this encounter Additional Health Concerns Infection Onset Date Last Indicated Resolved Time R/O COVID-19 01/31/2020 01/31/2020 02/02/2020 10:3 2 AM CDT documented as of this encounter Care Teams Photographic Printer Relationship Specialty Start Date End Date Areli Gurrola MD [address] [place] [phone] PCP - General Specialist 08/12/19 documented as of this encounter
--- OUTSIDE RECORDS SUMMARY | 2025-03-23 18:25 | XMS_ITS | Encounter Summary ---
Author Organization [facility] Address [address] [place] [address] Care Team Providers Care Ssis Etl Developer Name Role Phone Areli Gurrola MD Primary Care Provider Encounter Details Date Type Department Care Team (Latest Contact Info) Description 11/25/[address] [facility] [address] [place] [address] Gordon Cabral MD NO ADDRESS ON FILE DYSMENORRHEA (Primary Dx) Social History Tobacco Use Types Packs/Day Years Used Date Smoking Tobacco: Never Assessed Comments Unknown Sex and Gender Information Value Date Recorded Sex Assigned at Not on file Legal Sex Female 3:40 AM ENERGY CONSERVATION REPRESENTATIVE Gender Identity Not on file Sexual Orientation Not on file documented as of this encounter Plan of Treatment Not on file documented as of this encounter Visit Diagnoses Diagnosis Dysmenorrhea- Primary documented in this encounter Additional Health Concerns Infection Onset Date Last Indicated Resolved Time R/O COVID-19 01/31/2020 01/31/2020 02/02/2020 10:3 2 AM CDT documented as of this encounter Care Teams Ssis Etl Developer Relationship Specialty Start Date End Date Areli Gurrola MD [address] [facility] [place] [address] PCP - General Specialist 08/12/19 documented as of this encounter
--- OUTSIDE RECORDS SUMMARY | 2025-03-23 18:25 | XMS_ITS | Encounter Summary ---
Author Organization [facility] Address [address] [place] [address] Care Team Providers Care Child Care Associate Teacher Name Role Phone Areli Gurrola MD Primary Care Provider Encounter Details Date Type Department Care Team (Latest Contact Info) Description 07/16/2001 Outpatient Historical [facility] [address] [place] [address] Trell [place] MD [address] [place] [phone] SWELLING OF LIMB (Primary Dx) Social History Tobacco Use Types Packs/Day Years Used Date Smoking Tobacco: Never Assessed Comments Unknown Sex and Gender Information Value Date Recorded Sex Assigned at Not on file Legal Sex Female 3:40 AM RIVET DRIVER Gender Identity Not on file Sexual [...] of this encounter Care Teams Child Care Associate Teacher Relationship Specialty Start Date End Date Areli Gurrola MD [address] [facility] [place] [address] PCP - General Specialist 08/12/19 documented as of this encounter
--- OUTSIDE RECORDS SUMMARY | 2025-03-23 18:25 | XMS_ITS | Encounter Summary ---
Author Organization [facility] Address [address] [place] [address] Care Team Providers Care Reconditioning Associate Name Role Phone Areli Grurola MD Primary Care Provider Encounter Details Date Type Department Care Team (Latest Contact Info) Description 04/07/2002 Outpatient Historical [facility] [address] [place] [address] Trell [place] MD [address] [place] [phone] URTICARIA NOS (Primary Dx) Social History Tobacco Use Types Packs/Day Years Used Date Smoking Tobacco: Never Assessed Comments Unknown Sex and Gender Information Value Date Recorded Sex Assigned at Not on file Legal Sex Female 3:40 AM RN COMMUNITY Gender Identity Not on file Sexual Orientation Not on file documented as of this encounter Plan of Treatment Not on file documented as of this encounter Visit Diagnoses Diagnosis Urticaria, unspecified- Primary documented in this encounter Additional Health Concerns Infection Onset Date Last Indicated Resolved Time R/O COVID-19 01/31/2020 01/31/2020 02/02/2020 10:3 2 AM CDT documented as of this encounter Care Teams Reconditioning Associate Relationship Specialty Start Date End Date Areli Gurrola MD [address] [facility] [place] [address] PCP - General Specialist 08/12/19 documented as of this encounter
--- OUTSIDE RECORDS SUMMARY | 2025-03-23 18:25 | XMS_ITS | Encounter Summary ---
Author Organization [facility] Address [address] [place] [address] Care Team Providers Care Capacity Manager Name Role Phone Areli Gurrola MD Primary Care Provider Encounter Details Date Type Department Care Team (Latest Contact Info) Description 10/21/2001 Outpatient [facility] [address] [place] [address] Trell [place] MD [address] [place] [phone] NEUROTIC DEPRESSION (Primary Dx); LUMBAGO; ACUTE LARYNGOTRACH W OBSTR Social History Tobacco Use Types Packs/Day Years Used Date Smoking Tobacco: Never Assessed Comments Unknown Sex and Gender Information Value Date Recorded Sex Assigned at Not on file Legal Sex Female 3:40 AM MEDICINE TECHNOLOGIST Gender Identity Not on file Sexual [...] documented as of this encounter Care Teams Capacity Manager Relationship Specialty Start Date End Date Areli Gurrola MD [address] [facility] [place] [address] PCP - General Specialist 08/12/19 documented as of this encounter
--- OUTSIDE RECORDS SUMMARY | 2025-03-23 18:25 | XMS_ITS | Encounter Summary ---
Author Organization [facility] Address [address] [place] [address] Care Team Providers Care Edge Kitter Name Role Phone Areli Gurrola MD Primary Care Provider Encounter Details Date Type Department Care Team (Latest Contact Info) Description 12/18/2002 Outpatient Historical [facility] [address] [place] [address] Gordon Cabral MD NO ADDRESS ON FILE PREOP EXAM OTHER SPECIFIED (Primary Dx) Social History Tobacco Use Types Packs/Day Years Used Date Smoking Tobacco: Never Assessed Comments Unknown Sex and Gender Information Value Date Recorded Sex Assigned at Not on file Legal Sex Female 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 PRESENTATION SPECIALIST Gender Identity Not on file Sexual [...] documented as of this encounter Care Teams Edge Kitter Relationship Specialty Start Date End Date Areli Gurrola MD [address] [place] [address] PCP - General Specialist 08/12/19 documented as of this encounter
--- OUTSIDE RECORDS SUMMARY | 2025-03-23 18:25 | XMS_ITS | Encounter Summary ---
Author Organization [facility] Address [address] [place] [address] Care Team Providers Care Member Service Representative Name Role Phone Areli Gurrola MD Primary Care Provider Encounter Details Date Type Department Care Team (Latest Contact Info) Description 12/02/2002 Outpatient [facility] [address] [place] [address] Gordon Cabral MD NO ADDRESS ON FILE FEMALE GENITAL SYMPTOMS NOS (Primary Dx) Social History Tobacco Use Types Packs/Day Years Used Date Smoking Tobacco: Never Assessed Comments Unknown Sex and Gender Information Value Date Recorded Sex Assigned at Not on file Legal Sex Female 3:40 AM ENVIRONMENTAL CONTROL ADMINISTRATOR Gender Identity Not on file Sexual [...] documented as of this encounter Care Teams Member Service Representative Relationship Specialty Start Date End Date Areli Gurrola MD [address] [facility] [place] [address] PCP - General Specialist 08/12/19 documented as of this encounter
--- OUTSIDE RECORDS SUMMARY | 2025-03-23 18:25 | XMS_ITS | Encounter Summary ---
Author Organization [employer] [facility] Address [address] [place] [address] Care Team Providers Care Tumbler Dyeing Machine Operator Name Role Phone Areli Gurrola [...] documented as of this encounter Care Teams Tumbler Dyeing Machine Operator Relationship Specialty Start Date End Date Areli Gurrola MD [address] [place] [address] PCP - General Specialist 08/12/19 documented as of this encounter
--- OUTSIDE RECORDS SUMMARY | 2025-03-23 18:25 | XMS_ITS | Encounter Summary ---
Author Organization [facility] Address [address] [place] [address] Care Team Providers Care Parts Washer Name Role Phone Areli Gurrola MD Primary Care Provider Encounter Details Date Type Department Care Team (Latest Contact Info) Description 07/30/2002 Outpatient Historical [facility] [address] [place] [address] Trell [place] MD [address] [place] [phone] INSOMNIA NEC (Primary Dx); NEUROTIC DEPRESSION; LUMBAGO Social History Tobacco Use Types Packs/Day Years Used Date Smoking Tobacco: Never Assessed Comments Unknown Sex and Gender Information Value Date Recorded Sex Assigned at Not on file Legal Sex Female 3:40 AM FUR FLOOR WORKER Gender Identity Not on file Sexual [...] documented as of this encounter Care Teams Parts Washer Relationship Specialty Start Date End Date Areli Gurrola MD [address] [facility] [facility] [place] [address] PCP - General Specialist 08/12/19 documented as of this encounter
--- OUTSIDE RECORDS SUMMARY | 2025-03-23 18:25 | XMS_ITS | Encounter Summary ---
Author Organization [facility] Address [address] [place] [address] Care Team Providers Care Blue Leather Setter Name Role Phone Areli Gurrola MD Primary Care Provider Encounter Details Date Type Department Care Team (Late st Contact Info) Description 10/30/2002 Emergency [facility] [address] [place] [address] Tomás Jade MD NO ADDRESS ON FILE FEMALE GENITAL SYMPTOMS NOS (Primary Dx) Social History Tobacco Use Types Packs/Day Years Used Date Smoking Tobacco: Never Assessed Comments Unknown Sex and Gender Information Value Date Recorded Sex Assigned at Not on file Legal Sex Female 3:40 AM PRE PAROLE COUNSELING AIDE Gender Identity Not on file Sexual [...] documented as of this encounter Care Teams Blue Leather Setter Relationship Specialty Start Date End Date Areli Gurrola MD [address] [place] [address] PCP - General Specialist 08/12/19 documented as of this encounter
--- OUTSIDE RECORDS SUMMARY | 2025-03-23 18:25 | XMS_ITS | Encounter Summary ---
Author Organization [facility] Address [address] [place] [address] Care Team Providers Care M1 Armor Crewman Name Role Phone Areli Gurrola MD Primary Care Provider Encounter Details Date Type Department Care Team (Latest Contact Info) Description 01/20/2002 Outpatient Historical [facility] [address] [place] [address] Trell [place] MD [address] [place] [address] NEUROTIC DEPRESSION (Primary Dx); ANXIETY STATE NOS; CERVICALGIA; LUMBAGO Social History Tobacco Use Types Packs/Day Years Used Date Smoking Tobacco: Never Assessed Comments Unknown Sex and Gender Information Value Date Recorded Sex Assigned at Not on file Legal Sex Female 3:40 AM VINE PRUNER Gender Identity Not on file Sexual Orientation [...] Areli Gurrola MD [address] [place] [address] PCP - General Specialist 08/12/19 documented as of this encounter
--- OUTSIDE RECORDS SUMMARY | 2025-03-23 18:25 | XMS_ITS | Encounter Summary ---
Author Organization [facility] Address [address] [place] [address] Care Team Providers Care Ecommerce Merchandising Manager Name Role Phone Areli Gurrola MD Primary Care Provider Encounter Details Date Type Department Care Team (Latest Contact Info) Description 11/20/2001 Outpatient Historical [facility] [address] [place] [address] Trell [place] MD [address] [place] [phone] LUMBAGO (Primary Dx); SEBACEOUS CYST Social History Tobacco Use Types Packs/Day Years Used Date Smoking Tobacco: Never Assessed Comments Unknown Sex and Gender Information Value Date Recorded Sex Assigned at Not on file Legal Sex Female 3:40 AM LADLER Gender Identity Not on file Sexual Orientation Not on file documented as of this encounter Plan of Treatment Not on file documented as of this encounter Visit Diagnoses Diagnosis Lumbago- Primary Sebaceous cyst documented in this encounter Additional Health Concerns Infection Onset Date Last Indicated Resolved Time R/O COVID-19 01/31/2020 01/31/2020 02/02/2020 10:3 2 AM CDT documented as of this encounter Care Teams Ecommerce Merchandising Manager Relationship Specialty Start Date End Date Areli Gurrola MD [address] [place] [address] PCP - General Specialist 08/12/19 documented as of this encounter
--- OUTSIDE RECORDS SUMMARY | 2025-03-23 18:25 | XMS_ITS | Encounter Summary ---
Author Organization [facility] Address [address] [place] [address] Care Team Providers Care Mobile Solutions Architect Name Role Phone Areli Gurrola MD Primary Care Provider Encounter Details Date Type Department Care Team (Latest Contact Info) Description 05/11/2003 Outpatient Historical [facility] [address] [place] [address] Trell [place] MD [address] [place] [phone] CERVICALGIA (Primary Dx) Social History Tobacco Use Types Packs/Day Years Used Date Smoking Tobacco: Never Assessed Comments Unknown Sex and Gender Information Value Date Recorded Sex Assigned at Not on file Legal Sex Female 3:40 AM CASH POSTER Gender Identity Not on file Sexual Orientation Not on file documented as of this encounter Plan of Treatment Not on file documented as of this encounter Visit Diagnoses Diagnosis Cervicalgia- Primary documented in this encounter Additional Health Concerns Infection Onset Date Last Indicated Resolved Time R/O COVID-19 01/31/2020 01/31/2020 02/02/2020 10:3 2 AM CDT documented as of this encounter Care Teams Mobile Solutions Architect Relationship Specialty Start Date End Date Areli Gurrola MD [address] [facility] [place] [address] PCP - General Specialist 08/12/19 documented as of this encounter
--- OUTSIDE RECORDS SUMMARY | 2025-03-23 18:25 | XMS_ITS | Encounter Summary ---
Author Organization [facility] Address [address] [place] [address] Care Team Providers Care Congregational Care Pastor Name Role Phone Areli Gurrola MD Primary Care Provider Encounter Details Date Type Department Care Team (Latest Contact Info) Description 10/31/2002 Outpatient Historical [facility] [address] [place] [address] Gordon Cabral MD NO ADDRESS ON FILE SURGERY FOLLOWUP, UNSPEC (Primary Dx) Social History Tobacco Use Types Packs/Day Years Used Date Smoking Tobacco: Never Assessed Comments Unknown Sex and Gender Information Value Date Recorded Sex Assigned at Not on file Legal Sex Female 3:40 AM MAGNETIC TAPE WINDER Gender Identity Not on file Sexual [...] documented as of this encounter Care Teams Congregational Care Pastor Relationship Specialty Start Date End Date Areli Gurrola MD [address] [facility] [address] PCP - General Specialist 08/12/19 documented as of this encounter
== END 2025-03-23 16:25 | disposition home or self-care (01) ==
PROVIDERS: Emergency Provider Emergency Medicine; PCP Physician Assistant
DX: S89.91XA Unspecified injury of right lower leg, initial encounter (principal); F17.210 Nicotine dependence, cigarettes, uncomplicated; F17.290 Nicotine dependence, other tobacco product, uncomplicated; E11.9 Type 2 diabetes mellitus without complications; I50.9 Heart failure, unspecified; X58.XXXA Exposure to other specified factors, initial encounter
CPT/HCPCS: 73562; 73590; 93971; 96372; 99284; J1100; J9999

== ENCOUNTER 2025-04-01 15:39 | Emergency (ER) | payer MEDICARE, MEDICAID, SELFPAY ==
--- OUTSIDE RECORDS SUMMARY | 2024-02-02 03:00 | XMS_ITS ---
Author Organization [facility] Address [address] [place] [address] Care Team Providers Care Flight Service Agent Name Role Phone Joseph eLwis MD Primary Care Provider Zane Joiner Unavailable [phone] ELROY BOOTHE Unavailable Unavailable Migration, Provider Unavailable Unavailable REASON FOR VISIT EMR-Luke Encounters Encounter Location Date Provider Diagnosis Migrated_Facility 0 0 02/02/2024 Provider Migration Plan Of Treatment Medication Medication Name Sig Start Date Stop Date Notes Zubsolv 5.7-1.4 mg sublingual tablet, sublingual 1 Tablet Twice a Day 02/20/2019 03/22/2019 *Reorder from [facility] for eRx and Interaction Alerts* Progress Notes * Kay GAMBOA MDOB:1965 (59 yo F)Acc No.[id number]:02/02/2024 Patient: Elva Kay RODRIGUEZ :1965 A ge:58 Y S ex:Female Address:[address], [address] [place] [address] * Refills Stop Zubsolv 5.7-1.4 mg sublingual tablet, sublingual, 1 Tablet Twice a Day Subjective: * Chief Complaints: * E MR-Luke * * Date:
--- OUTSIDE RECORDS SUMMARY | 2024-02-03 03:00 | XMS_ITS ---
Author Organization [facility] Address [address] [place] [address] Care Team Providers Care Telehealth Case Manager Name Role Phone Joseph Lewis MD Primary Care Provider Zane Joiner Unavailable [phone] ELROY BOOTHE Unavailable Unavailable Migration, Provider Unavailable [...] * Kay GAMBOA MDOB:1965 (59 yo F)Acc No.[id number]:02/03/2024 Patient: Elva CADEKay BIGGS :1965 A ge:58 Y S ex:Female Address:[address], [address] [place] [address] Subjective: * Chief Complaints: * E MR-Luke [...]
[2024-09-18 15:42] VITALS: BP 147/78; BMI 37.0
--- OUTSIDE RECORDS SUMMARY | 2025-04-01 15:48 | XMS_ITS | Encounter Summary ---
Author Organization [facility] Address [address] [place] [address] Care Team Providers Care Sales Solutions Associate Name Role Phone Areli Gurrola MD Primary Care Provider Encounter Details Date Type Department Care Team (Latest Contact Info) Description 09/01/1999 Outpatient Historical [facility] Joseph Ramos MD [address] [place] [address] Pain in joint, hand (Primary Dx); Follow-up examination following surgery Social History Tobacco Use Types Packs/Day Years Used Date Smoking Tobacco: Never Assessed Comments Unknown Sex and Gender Information Value Date Recorded Sex Assigned at Not on file Legal Sex Female 3:40 AM ATTENDING PATHOLOGIST Gender Identity Not on file Sexual [...] as of this encounter Care Teams Sales Solutions Associate Relationship Specialty Start Date End Date Areli Gurrola MD [address] [place] [address] PCP - General Specialist 08/12/19 documented as of this encounter
--- OUTSIDE RECORDS SUMMARY | 2025-04-01 15:48 | XMS_ITS | Encounter Summary ---
Author Organization [facility] Address [address] [place] [address] Care Team Providers Care Welder Gun Name Role Phone Areli Gurrola MD Primary Care Provider Encounter Details Date Type Department Care Team (Latest Contact Info) Description 09/29/1999 Outpatient Historical [facility] [address] [place] [address] Trell [place] MD [address] [place] [phone] Obesity, unspecified (Primary Dx); Lumbago Social History Tobacco Use Types Packs/Day Years Used Date Smoking Tobacco: Never Assessed Comments Unknown Sex and Gender Information Value Date Recorded Sex Assigned at Not on file Legal Sex Female 3:40 AM SHELLFISH CHECKER Gender Identity Not on file Sexual Orientation Not on file documented as of this encounter Plan of Treatment Not on file documented as of this encounter Visit Diagnoses Diagnosis Obesity, unspecified- Primary Lumbago documented in this encounter Additional Health Concerns Infection Onset Date Last Indicated Resolved Time R/O COVID-19 01/31/2020 01/31/2020 02/02/2020 10:3 2 AM CDT documented as of this encounter Care Teams Welder Gun Relationship Specialty Start Date End Date Areli Gurrola MD [address] [facility] [place] [address] PCP - General Specialist 08/12/19 documented as of this encounter
--- OUTSIDE RECORDS SUMMARY | 2025-04-01 15:48 | XMS_ITS | Encounter Summary ---
Author Organization [facility] Address [address] Attn: [place] [address] Care Team Providers Care Head Trimmer Name Role Phone Arlei Gurrola MD Primary Care Provider Encounter Details Date Type Department Care Team (Late st Contact Info) Description 11/16/1999 Outpatient Historical Joseph Ramos MD [address] [place] [address] Social History Tobacco Use Types Packs/Day Years Used Date Smoking Tobacco: Never Assessed Comments Unknown Sex and Gender Information Value Date Recorded Sex Assigned at Not on file Legal Sex Female 3:40 AM COMPUTER PROGRAMMING SUPERVISOR Gender Identity Not on file Sexual Orientation Not on file documented as of this encounter Plan of Treatment Not on file documented as of this encounter Visit Diagnoses Not on filedocumented in this encounter Additional Health Concerns Infection Onset Date Last Indicated Resolved Time R/O COVID-19 01/31/2020 01/31/2020 02/02/2020 10:3 2 AM CDT documented as of this encounter Care Teams Head Trimmer Relationship Specialty Start Date End Date Areli Gurrola MD [address] [facility] [place] [address] PCP - General Specialist 08/12/19 documented as of this encounter
--- OUTSIDE RECORDS SUMMARY | 2025-04-01 15:48 | XMS_ITS | Encounter Summary ---
Author Organization [facility] Address [address] [place]: [place] [address] Care Team Providers Care Breaker Tender Name Role Phone Areli Gurrola MD Primary Care Provider Encounter Details Date Type Department Care Team (Late st Contact Info) Description 06/06/2001 Outpatient Historical [place], Trell Pascual MD [address] [place] [phone] Social History Tobacco Use Types Packs/Day Years Used Date Smoking Tobacco: Never Assessed Comments Unknown Sex and Gender Information Value Date Recorded Sex Assigned at Not on file Legal Sex Female 3:40 AM DIAMOND DRILLER HELPER Gender Identity Not on file Sexual Orientation Not on file documented as of this encounter Plan of Treatment Not on file documented as of this encounter Visit Diagnoses Not on filedocumented in this encounter Additional Health Concerns Infection Onset Date Last Indicated Resolved Time R/O COVID-19 01/31/2020 01/31/2020 02/02/2020 10:3 2 AM CDT documented as of this encounter Care Teams Breaker Tender Relationship Specialty Start Date End Date Areli Gurrola MD [address] [place] [address] PCP - General Specialist 08/12/19 documented as of this encounter
--- OUTSIDE RECORDS SUMMARY | 2025-04-01 15:48 | XMS_ITS | Encounter Summary ---
Author Organization [facility] Address [address] [place] [address] Care Team Providers Care Area Mechanic Name Role Phone Areli Gurrola MD Primary Care Provider Encounter Details Date Type Department Care Team (Latest Contact Info) Description 07/20/1999 Outpatient Historical [facility] Joseph Ramos MD [address] [place] [address] Pain in joint, hand (Primary Dx) Social History Tobacco Use Types Packs/Day Years Used Date Smoking Tobacco: Never Assessed Comments Unknown Sex and Gender Information Value Date Recorded Sex Assigned at Not on file Legal Sex Female 3:40 AM MINER PICK Gender Identity Not on file Sexual Orientation [...] documented as of this encounter Care Teams Area Mechanic Relationship Specialty Start Date End Date Areli Gurrola MD [address] [facility] [place] [place] [address] PCP - General Specialist 08/12/19 documented as of this encounter
--- OUTSIDE RECORDS SUMMARY | 2025-04-01 15:48 | XMS_ITS | Encounter Summary ---
Author Organization [facility] Address [address] [place] [address] Care Team Providers Care Lawn And Garden Technician Name Role Phone Areli Gurrola MD Primary Care Provider Encounter Details Date Type Department Care Team (Latest Contact Info) Description 10/08/2000 Outpatient Historical [facility] [address] [place] [address] Trell [place] MD [address] [place] [phone] Sprain and strain of unspecified site of knee and leg (Primary Dx) Social History Tobacco Use Types Packs/Day Years Used Date Smoking Tobacco: Never Assessed Comments Unknown Sex and Gender Information Value Date Recorded Sex Assigned at Not on file Legal Sex Female 3:40 AM STRUCTURAL FITTER Gender Identity Not on file Sexual [...] documented as of this encounter Care Teams Lawn And Garden Technician Relationship Specialty Start Date End Date Areli Gurrola MD [address] [facility] [place] [address] PCP - General Specialist 08/12/19 documented as of this encounter
--- OUTSIDE RECORDS SUMMARY | 2025-04-01 15:48 | XMS_ITS | Clinical Summary ---
Author Organization [facility] Address [address] [place] [address] Care Team Providers Care Substance Abuse Prevention Coordinator Name Role Phone Areli Gurrola MD [...] Legal Sex Female 3:40 AM SALES REPRESENTATIVE PRINTING Gender Identity Not on file Sexual Orientation [...] Tdap) 03/15/2030 03/15/2020, 11/07/1997, 03/03/[address] [facility] DUAL COMPLETE [place] [address] MEDICA[place] Advance Directives For more information, please contact: [phone] * Full Code (Latest Code Status on File) Date Activated Date Inactivated Comments 02/17/2016 12:44 PM 02/17/2016 4:46 PM Care Teams Substance Abuse Prevention Coordinator Relationship Specialty Start Date End Date Areli Gurrola MD [address] [place] [address] PCP - General Specialist 08/12/19
--- OUTSIDE RECORDS SUMMARY | 2025-04-01 15:48 | XMS_ITS | Encounter Summary ---
Author Organization [facility] Address [address] [facility] Attn: [place] [address] Care Team Providers Care Collar Cutter Name Role Phone Areli Gurrola MD Primary Care Provider Encounter Details Date Type Department Care Team (Late st Contact Info) Description 11/10/1999 Outpatient Historical Joseph Ramos MD [address] [place] [address] Social History Tobacco Use Types Packs/Day Years Used Date Smoking Tobacco: Never Assessed Comments Unknown Sex and Gender Information Value Date Recorded Sex Assigned at Not on file Legal Sex Female 3:40 AM PULP OPERATOR Gender Identity Not on file Sexual Orientation Not on file documented as of this encounter Plan of Treatment Not on file documented as of this encounter Visit Diagnoses Not on filedocumented in this encounter Additional Health Concerns Infection Onset Date Last Indicated Resolved Time R/O COVID-19 01/31/2020 01/31/2020 02/02/2020 10:3 2 AM CDT documented as of this encounter Care Teams Collar Cutter Relationship Specialty Start Date End Date Areli Gurrola MD [address] [facility] [place] [address] PCP - General Specialist 08/12/19 documented as of this encounter
--- OUTSIDE RECORDS SUMMARY | 2025-04-01 15:48 | XMS_ITS | Encounter Summary ---
Author Organization [facility] Address [address] [place] [address] Care Team Providers Care Investigative Assistant Name Role Phone Areli Gurrola MD Primary Care Provider Encounter Details Date Type Department Care Team (Latest Contact Info) Description 03/27/2001 [facility]patient [facility] [address] [place] [address] Trell [place] MD [address] [place] [phone] CERVICALGIA (Primary Dx); NEUROTIC DEPRESSION; LUMBAGO Social History Tobacco Use Types Packs/Day Years Used Date Smoking Tobacco: Never Assessed Comments Unknown Sex and Gender Information Value Date Recorded Sex Assigned at Not on file Legal Sex Female 3:40 AM CARDIAC CATH RN Gender Identity Not on file Sexual [...] documented as of this encounter Care Teams Investigative Assistant Relationship Specialty Start Date End Date Areli Gurrola MD [address] [place] [address] PCP - General Specialist 08/12/19 documented as of this encounter
--- OUTSIDE RECORDS SUMMARY | 2025-04-01 15:48 | XMS_ITS | Encounter Summary ---
Author Organization [facility] Address [address] [facility] Attn: [place] [address] Care Team Providers Care Railroad Cook Name Role Phone Areli Gurrola MD [...] file Legal Sex Female 3:40 AM ENVIRONMENTAL RESOURCE SPECIALIST Gender Identity Not on file Sexual Orientation Not on file documented as of this encounter Plan of Treatment Not on file documented as of this encounter Visit Diagnoses Not on filedocumented in this encounter Additional Health Concerns Infection Onset Date Last Indicated Resolved Time R/O COVID-19 01/31/2020 01/31/2020 02/02/2020 10:3 2 AM CDT documented as of this encounter Care Teams Railroad Cook Relationship Specialty Start Date End Date Areli Gurrola MD [address] [place] [address] PCP - General Specialist 08/12/19 documented as of this encounter
--- OUTSIDE RECORDS SUMMARY | 2025-04-01 15:48 | XMS_ITS | Encounter Summary ---
Author Organization [facility] Address [address] [place] [address] Care Team Providers Care Supervisor Shipping Room Name Role Phone Areli Gurrola MD Primary Care Provider Encounter Details Date Type Department Care Team (Latest Contact Info) Description 05/24/1999 Outpatient Historical [facility] [address] [place] [address] Trell York MD [address] [place] [phone] Edema (Primary Dx); Lumbago Social History Tobacco Use Types Packs/Day Years Used Date Smoking Tobacco: Never Assessed Comments Unknown Sex and Gender Information Value Date Recorded Sex Assigned at Not on file Legal Sex Female 3:40 AM POSTAL SUPERVISOR Gender Identity Not on file Sexual [...] as of this encounter Care Teams Supervisor Shipping Room Relationship Specialty Start Date End Date Areli Gurrola MD [address] [facility] [place] [address] PCP - General Specialist 08/12/19 documented as of this encounter
--- OUTSIDE RECORDS SUMMARY | 2025-04-01 15:48 | XMS_ITS | Encounter Summary ---
Author Organization [facility] Address [address] [place] [address] Care Team Providers Care Utility Appraiser Name Role Phone Areli Gurrola MD Primary Care Provider Encounter Details Date Type Department Care Team (Latest Contact Info) Description 06/07/2000 Outpatient Historical [facility] [address] [place] [address] Trell York MD [address] [place] [phone] Lumbago (Primary Dx); Open wound of foot except toe(s) alone, without mention of complication Social History Tobacco Use Types Packs/Day Years Used Date Smoking Tobacco: Never Assessed Comments Unknown Sex and Gender Information Value Date Recorded Sex Assigned at Not on file Legal Sex Female 3:40 AM SALES MARKETING MANAGER Gender Identity Not on file Sexual [...] as of this encounter Care Teams Utility Appraiser Relationship Specialty Start Date End Date Areli Gurrola MD [address] [facility] [place] [address] PCP - General Specialist 08/12/19 documented as of this encounter
--- OUTSIDE RECORDS SUMMARY | 2025-04-01 15:48 | XMS_ITS | Encounter Summary ---
Author Organization [facility] Address [address] [place] [address] Care Team Providers Care Purchasing Agent Name Role Phone Areli Gurrola MD Primary Care Provider Encounter Details Date Type Department Care Team (Latest Contact Info) Description 11/13/2000 Outpatient Historical [facility] [address] [place] [address] Trell York MD [address] [place] [phone] Insomnia, unspecified (Primary Dx); Lumbago Social History Tobacco Use Types Packs/Day Years Used Date Smoking Tobacco: Never Assessed Comments Unknown Sex and Gender Information Value Date Recorded Sex Assigned at Not on file Legal Sex Female 3:40 AM COORDINATOR OF GENETIC SERVICES Gender Identity Not on file Sexual Orientation Not on file documented as of this encounter Plan of Treatment Not on file documented as of this encounter Visit Diagnoses Diagnosis Insomnia, unspecified- Primary Lumbago documented in this encounter Additional Health Concerns Infection Onset Date Last Indicated Resolved Time R/O COVID-19 01/31/2020 01/31/2020 02/02/2020 10:3 2 AM CDT documented as of this encounter Care Teams Purchasing Agent Relationship Specialty Start Date End Date Areli Gurrola MD [address] [place] [address] PCP - General Specialist 08/12/19 documented as of this encounter
--- OUTSIDE RECORDS SUMMARY | 2025-04-01 15:48 | XMS_ITS | Encounter Summary ---
Author Organization [facility] Address [address] [place] [address] Care Team Providers Care Saw Superintendent Name Role Phone Areli Gurrola MD Primary Care Provider Encounter Details Date Type Department Care Team (Latest Contact Info) Description 08/18/1999 Outpatient Historical [facility] Joseph Ramos MD [address] [place] [address] Pain in joint, hand (Primary Dx) Social History Tobacco Use Types Packs/Day Years Used Date Smoking Tobacco: Never Assessed Comments Unknown Sex and Gender Information Value Date Recorded Sex Assigned at Not on file Legal Sex Female 3:40 AM PUBLIC HEALTH ASSISTANT Gender Identity Not on file Sexual [...] documented as of this encounter Care Teams Saw Superintendent Relationship Specialty Start Date End Date Areli Gurrola MD [address] [facility] [place] [address] PCP - General Specialist 08/12/19 documented as of this encounter
--- OUTSIDE RECORDS SUMMARY | 2025-04-01 15:48 | XMS_ITS | Encounter Summary ---
Author Organization [facility] Address [address] [place] [address] Care Team Providers Care Repair Specialist Name Role Phone Areli Gurrola MD Primary Care Provider Encounter Details Date Type Department Care Team (Latest Contact Info) Description 10/20/1999 Outpatient Historical [facility] Joseph Ramos MD [address] [place] [address] Carpal tunnel syndrome (Primary Dx) Social History Tobacco Use Types Packs/Day Years Used Date Smoking Tobacco: Never Assessed Comments Unknown Sex and Gender Information Value Date Recorded Sex Assigned at Not on file Legal Sex Female 3:40 AM FACILITIES SPECIALIST Gender Identity Not on file Sexual [...] documented as of this encounter Care Teams Repair Specialist Relationship Specialty Start Date End Date Areli Gurrola MD [address] [facility] [place] [address] PCP - General Specialist 08/12/19 documented as of this encounter
--- OUTSIDE RECORDS SUMMARY | 2025-04-01 15:48 | XMS_ITS | Encounter Summary ---
Author Organization [facility] Address [address] [place] [address] Care Team Providers Care Redeye Gunner Name Role Phone Areli Gurrola MD Primary Care Provider Encounter Details Date Type Department Care Team (Latest Contact Info) Description 05/09/1999 Outpatient Historical [facility] [address] [place] [address] Trell York MD [address] [place] [phone] Cervical spinal stenosis (Primary Dx); Contusion of elbow Social History Tobacco Use Types Packs/Day Years Used Date Smoking Tobacco: Never Assessed Comments Unknown Sex and Gender Information Value Date Recorded Sex Assigned at Not on file Legal Sex Female 3:40 AM AUTOMOTIVE WORKER FOREMAN Gender Identity Not on file Sexual Orientation [...] documented as of this encounter Care Teams Redeye Gunner Relationship Specialty Start Date End Date Areli Gurrola MD [address] [place] [address] PCP - General Specialist 08/12/19 documented as of this encounter
--- OUTSIDE RECORDS SUMMARY | 2025-04-01 15:48 | XMS_ITS | Encounter Summary ---
Author Organization [facility] Address [address] [facility] Attn: [place] [address] Care Team Providers Care Barrel Cap Setter Name Role Phone Areli Gurrola MD [...] Legal Sex Female 3:40 AM MEDICAL OFFICE MANAGER Gender Identity Not on file Sexual Orientation Not on file documented as of this encounter Plan of Treatment Not on file documented as of this encounter Visit Diagnoses Not on filedocumented in this encounter Additional Health Concerns Infection Onset Date Last Indicated Resolved Time R/O COVID-19 01/31/2020 01/31/2020 02/02/2020 10:3 2 AM CDT documented as of this encounter Care Teams Barrel Cap Setter Relationship Specialty Start Date End Date Areli Gurrola MD [address] [facility] [place] [address] PCP - General Specialist 08/12/19 documented as of this encounter
--- OUTSIDE RECORDS SUMMARY | 2025-04-01 15:48 | XMS_ITS | Encounter Summary ---
Author Organization [facility] Address [address] [place] [address] Care Team Providers Care Freight Car Inspector Name Role Phone Areli Gurrola MD Primary Care Provider Encounter Details Date Type Department Care Team (Latest Contact Info) Description 06/08/1999 Outpatient Historical [facility] [place], Trell Pascual MD [address] [place] [address] Obesity, unspecified (Primary Dx); Encounter for long-term (current) use of other medications Social History Tobacco Use Types Packs/Day Years Used Date Smoking Tobacco: Never Assessed Comments Unknown Sex and Gender Information Value Date Recorded Sex Assigned at Not on file Legal Sex Female 3:40 AM HEAT AND FROST INSULATOR Gender Identity Not on file Sexual Orientation [...] as of this encounter Care Teams Freight Car Inspector Relationship Specialty Start Date End Date Areli Gurrola MD [address] [facility] [place] [address] PCP - General Specialist 08/12/19 documented as of this encounter
--- OUTSIDE RECORDS SUMMARY | 2025-04-01 15:48 | XMS_ITS | Encounter Summary ---
Author Organization [facility] Address [address] [place] [address] Care Team Providers Care Warehouse Picker Name Role Phone Areli Gurrola MD Primary Care Provider Encounter Details Date Type Department Care Team (Latest Contact Info) Description 11/28/1999 Outpatient Historical [facility] [address] [place] [address] Trell York MD [address] [place] [phone] Lumbago (Primary Dx) Social History Tobacco Use Types Packs/Day Years Used Date Smoking Tobacco: Never Assessed Comments Unknown Sex and Gender Information Value Date Recorded Sex Assigned at Not on file Legal Sex Female 3:40 AM DIESEL PILE HAMMER OPERATOR Gender Identity Not on file Sexual Orientation Not on file documented as of this encounter Plan of Treatment Not on file documented as of this encounter Visit Diagnoses Diagnosis Lumbago- Primary documented in this encounter Additional Health Concerns Infection Onset Date Last Indicated Resolved Time R/O COVID-19 01/31/2020 01/31/2020 02/02/2020 10:3 2 AM CDT documented as of this encounter Care Teams Warehouse Picker Relationship Specialty Start Date End Date Areli Gurrola MD [address] [facility] [place] [address] PCP - General Specialist 08/12/19 documented as of this encounter
--- OUTSIDE RECORDS SUMMARY | 2025-04-01 15:48 | XMS_ITS | Encounter Summary ---
Author Organization [facility] Address [address] [facility] Attn: [place] [address] Care Team Providers Care Data Analyst Report Writer Name Role Phone Areli Gurrola MD [...] on file Legal Sex Female 3:40 AM NUMERICAL CONTROL MACHINE OPERATOR Gender Identity Not on file Sexual Orientation Not on file documented as of this encounter Plan of Treatment Not on file documented as of this encounter Visit Diagnoses Not on filedocumented in this encounter Additional Health Concerns Infection Onset Date Last Indicated Resolved Time R/O COVID-19 01/31/2020 01/31/2020 02/02/2020 10:3 2 AM CDT documented as of this encounter Care Teams Data Analyst Report Writer Relationship Specialty Start Date End Date Areli Gurrola MD [address] [facility] [place] [address] PCP - General Specialist 08/12/19 documented as of this encounter
--- OUTSIDE RECORDS SUMMARY | 2025-04-01 15:48 | XMS_ITS | Encounter Summary ---
Author Organization [facility] Address [address] [place] [address] Care Team Providers Care Income Tax Adjuster Name Role Phone Areli Gurrola MD Primary Care Provider Encounter Details Date Type Department Care Team (Latest Contact Info) Description 08/09/1999 Outpatient Historical [facility] [address] [place] [address] Trell York MD [address] [place] [phone] Stricture of cervix (Primary Dx) Social History Tobacco Use Types Packs/Day Years Used Date Smoking Tobacco: Never Assessed Comments Unknown Sex and Gender Information Value Date Recorded Sex Assigned at Not on file Legal Sex Female 3:40 AM GAS DISTRIBUTION AND EMERGENCY CLERK Gender Identity Not on file Sexual [...] documented as of this encounter Care Teams Income Tax Adjuster Relationship Specialty Start Date End Date Areli Gurrola MD [address] [facility] [place] [address] PCP - General Specialist 08/12/19 documented as of this encounter
--- OUTSIDE RECORDS SUMMARY | 2025-04-01 15:48 | XMS_ITS | Encounter Summary ---
Author Organization [facility] Address [address] [place] [address] Care Team Providers Care Special Education Case Manager Name Role Phone Areli Gurrola MD Primary Care Provider Encounter Details Date Type Department Care Team (Latest Contact Info) Description 12/05/2000 Outpatient Historical [facility] [address] [place] [address] Trell York MD [address] [place] [phone] Lumbago (Primary Dx); Cervicalgia; Pain in joint, pelvic region and thigh Social History Tobacco Use Types Packs/Day Years Used Date Smoking Tobacco: Never Assessed Comments Unknown Sex and Gender Information Value Date Recorded Sex Assigned at Not on file Legal Sex Female 3:40 AM CUSTOMER STRATEGY MANAGER Gender Identity Not on file Sexual [...] as of this encounter Care Teams Special Education Case Manager Relationship Specialty Start Date End Date Areli Gurrola MD [address] [place] [address] PCP - General Specialist 08/12/19 documented as of this encounter
--- OUTSIDE RECORDS SUMMARY | 2025-04-01 15:48 | XMS_ITS | Encounter Summary ---
Author Organization [facility] Address [address] [place] [address] Care Team Providers Care District Sales Manager Name Role Phone Areli Gurrola MD Primary Care Provider Encounter Details Date Type Department Care Team (Latest Contact Info) Description 07/27/2000 Outpatient Historical [facility] [address] [place] [address] Trell York MD [address] [place] [phone] Unspecified disorder of female genital organs (Primary Dx); Cervicalgia Social History Tobacco Use Types Packs/Day Years Used Date Smoking Tobacco: Never Assessed Comments Unknown Sex and Gender Information Value Date Recorded Sex Assigned at Not on file Legal Sex Female 3:40 AM HEEL SEAT SANDER Gender Identity Not on file Sexual [...] documented as of this encounter Care Teams District Sales Manager Relationship Specialty Start Date End Date Areli Gurrola MD [address] [place] [address] PCP - General Specialist 08/12/19 documented as of this encounter
--- OUTSIDE RECORDS SUMMARY | 2025-04-01 15:48 | XMS_ITS | Encounter Summary ---
Author Organization [facility] Address [address] [place] [address] Care Team Providers Care Checkout Operator Name Role Phone Areli Gurrola MD Primary Care Provider Encounter Details Date Type Department Care Team (Latest Contact Info) Description 02/21/2000 Outpatient Historical [facility] [address] [place] [address] Trell York MD [address] [place] [phone] Stricture of cervix (Primary Dx); Lumbago Social History Tobacco Use Types Packs/Day Years Used Date Smoking Tobacco: Never Assessed Comments Unknown Sex and Gender Information Value Date Recorded Sex Assigned at Not on file Legal Sex Female 3:40 AM INPATIENT NURSING AIDE Gender Identity Not on file Sexual [...] documented as of this encounter Care Teams Checkout Operator Relationship Specialty Start Date End Date Areli Gurrola MD [address] [place] [address] PCP - General Specialist 08/12/19 documented as of this encounter
--- OUTSIDE RECORDS SUMMARY | 2025-04-01 15:48 | XMS_ITS | Encounter Summary ---
Author Organization [facility] Address [address] [facility] Attn: [place] [address] Care Team Providers Care Leather Grainer Name Role Phone Areli Gurrola MD Primary [...] on file Legal Sex Female 3:40 AM HISTOPATHOLOGY TECHNICIAN Gender Identity Not on file Sexual Orientation Not on file documented as of this encounter Plan of Treatment Not on file documented as of this encounter Visit Diagnoses Not on filedocumented in this encounter Additional Health Concerns Infection Onset Date Last Indicated Resolved Time R/O COVID-19 01/31/2020 01/31/2020 02/02/2020 10:3 2 AM CDT documented as of this encounter Care Teams Leather Grainer Relationship Specialty Start Date End Date Areli Gurrola MD [address] [facility] [place] [address] PCP - General Specialist 08/12/19 documented as of this encounter
--- OUTSIDE RECORDS SUMMARY | 2025-04-01 15:48 | XMS_ITS | Encounter Summary ---
Author Organization [facility] Address [address] [place] [address] Care Team Providers Care Medical Surgery Nurse Name Role Phone Areli Gurrola MD Primary Care Provider Encounter Details Date Type Department Care Team (Latest Contact Info) Description 04/23/2000 Outpatient Historical [facility] [address] [place] [address] Trell York MD [address] [place] [phone] Cervicalgia (Primary Dx); Other convulsions Social History Tobacco Use Types Packs/Day Years Used Date Smoking Tobacco: Never Assessed Comments Unknown Sex and Gender Information Value Date Recorded Sex Assigned at Not on file Legal Sex Female 3:40 AM MUSTANGER Gender Identity Not on file Sexual Orientation [...] as of this encounter Care Teams Medical Surgery Nurse Relationship Specialty Start Date End Date Areli Gurrola MD [address] [facility] [place] [address] PCP - General Specialist 08/12/19 documented as of this encounter
--- OUTSIDE RECORDS SUMMARY | 2025-04-01 15:48 | XMS_ITS | Encounter Summary ---
Author Organization [facility] Address [address] [place] [address] Care Team Providers Care Business Process Representative Name Role Phone Areli Gurrola MD Primary Care Provider Encounter Details Date Type Department Care Team (Latest Contact Info) Description 12/27/1999 Outpatient [facility] [address] [place] [address] Trell York MD [address] [place] [phone] Migraine without aura, without mention of intractable migraine without mention of status migrainosus (Primary Dx); Lumbago Social History Tobacco Use Types Packs/Day Years Used Date Smoking Tobacco: Never Assessed Comments Unknown Sex and Gender Information Value Date Recorded Sex Assigned at Not on file Legal Sex Female 3:40 AM DIETITIAN CHIEF Gender Identity Not on file Sexual [...] as of this encounter Care Teams Business Process Representative Relationship Specialty Start Date End Date Areli Gurrola MD [address] [facility] [place] [address] PCP - General Specialist 08/12/19 documented as of this encounter
--- OUTSIDE RECORDS SUMMARY | 2025-04-01 15:48 | XMS_ITS | Encounter Summary ---
Author Organization [facility] Address [address] [facility] Attn: [place] [address] Care Team Providers Care Panama Hat Hydraulic Press Operator Name Role Phone Areli Gurrola MD Primary Care Provider Encounter Details Date Type Department Care Team (Late st Contact Info) Description 06/11/2001 Inpatient Historical Renan Martinez MD [address] [place] [address] Social History Tobacco Use Types Packs/Day Years Used Date Smoking Tobacco: Never Assessed Comments Unknown Sex and Gender Information Value Date Recorded Sex Assigned at Not on file Legal Sex Female 3: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 Gender Identity Not on file Sexual Orientation Not on file documented as of this encounter Plan of Treatment Not on file documented as of this encounter Visit Diagnoses Not on filedocumented in this encounter Additional Health Concerns Infection Onset Date Last Indicated Resolved Time R/O COVID-19 01/31/2020 01/31/2020 02/02/2020 10:3 2 AM CDT documented as of this encounter Care Teams Panama Hat Hydraulic Press Operator Relationship Specialty Start Date End Date Areli Gurrola MD [address] [facility] [place] [address] PCP - General Specialist 08/12/19 documented as of this encounter
--- OUTSIDE RECORDS SUMMARY | 2025-04-01 15:48 | XMS_ITS | Encounter Summary ---
Author Organization [facility] Address [address] [place] [address] Care Team Providers Care Survey Director Name Role Phone Areli Gurrola MD Primary Care Provider Encounter Details Date Type Department Care Team (Late st Contact Info) Description 05/23/1999 Outpatient Historical [facility] Neurology [address] [facility] [address] [place] [address] Trell Hines MD [address] [place] [address] Carpal tunnel syndrome (Primary Dx) Social History Tobacco Use Types Packs/Day Years Used Date Smoking Tobacco: Never Assessed Comments Unknown Sex and Gender Information Value Date Recorded Sex Assigned at Not on file Legal Sex Female 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
--- OUTSIDE RECORDS SUMMARY | 2025-04-01 15:48 | XMS_ITS | Encounter Summary ---
Author Organization [facility] Address [address] [place] [address] Care Team Providers Care Special Makeup Fx Artist Instructor Name Role Phone Areli Gurrola MD Primary Care Provider Encounter Details Date Type Department Care Team (Late st Contact Info) Description 06/11/2001 Outpatient Historical [facility] Gen Spec Surg [address] [place] [address] Social History Tobacco Use Types Packs/Day Years Used Date Smoking Tobacco: Never Assessed Comments Unknown Sex and Gender Information Value Date Recorded Sex Assigned at Not on file Legal Sex Female 3:40 AM GRAY MIXING OPERATOR Gender Identity Not on file Sexual Orientation Not on file documented as of this encounter Plan of Treatment Not on file documented as of this encounter Visit Diagnoses Not on filedocumented in this encounter Additional Health Concerns Infection Onset Date Last Indicated Resolved Time R/O COVID-19 01/31/2020 01/31/2020 02/02/2020 10:3 2 AM CDT documented as of this encounter Care Teams Special Makeup Fx Artist Instructor Relationship Specialty Start Date End Date Areli Gurrola MD [address] [place] [address] PCP - General Specialist 08/12/19 documented as of this encounter
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
--- OUTSIDE RECORDS SUMMARY | 2025-04-01 15:48 | XMS_ITS | Encounter Summary ---
Author Organization [facility] Address [address] [place] [address] Care Team Providers Care Toe Former Stitchdowns Name Role Phone Areli Gurrola MD Primary Care Provider Encounter Details Date Type Department Care Team (Latest Contact Info) Description 04/25/2001 Outpatient Historical [facility] [address] [place] [address] Trell York MD [address] [place] [phone] ESOPHAGITIS, UNSPECIFIED (Primary Dx); LUMBAGO; SEBACEOUS CYST Social History Tobacco Use Types Packs/Day Years Used Date Smoking Tobacco: Never Assessed Comments Unknown Sex and Gender Information Value Date Recorded Sex Assigned at Not on file Legal Sex Female 3:40 AM WATCH COMMANDER Gender Identity Not on file Sexual Orientation [...] documented as of this encounter Care Teams Toe Former Stitchdowns Relationship Specialty Start Date End Date Areli Gurrola MD [address] [place] [address] PCP - General Specialist 08/12/19 documented as of this encounter
--- OUTSIDE RECORDS SUMMARY | 2025-04-01 15:48 | XMS_ITS | Encounter Summary ---
Author Organization [email or web address] Address [address] [place] [address] Care Team Providers Care Stone Setter Name Role Phone Areli Gurrola MD Primary Care Provider Encounter Details Date Type Department Care Team (Latest Contact Info) Description 06/20/1999 Outpatient Historical [facility] Joseph Ramos MD [address] [place] [address] Pain in joint, hand (Primary Dx) Social History Tobacco Use Types Packs/Day Years Used Date Smoking Tobacco: Never Assessed Comments Unknown Sex and Gender Information Value Date Recorded Sex Assigned at Not on file Legal Sex Female 3:40 AM BABY FORMULA MIXER Gender Identity Not on file Sexual Orientation [...] documented as of this encounter Care Teams Stone Setter Relationship Specialty Start Date End Date Areli Gurrola MD [address] [facility] [place] [address] PCP - General Specialist 08/12/19 documented as of this encounter
--- OUTSIDE RECORDS SUMMARY | 2025-04-01 15:48 | XMS_ITS | Encounter Summary ---
Author Organization [facility] Address [address] [place] [address] Care Team Providers Care Gis Application Developer Name Role Phone Areli Gurrola MD Primary Care Provider Encounter Details Date Type Department Care Team (Late st Contact Info) Description 03/30/1999 Outpatient Historical [facility] Social History Tobacco Use Types Packs/Day Years Used Date Smoking Tobacco: Never Assessed Comments Unknown Sex and Gender Information Value Date Recorded Sex Assigned at Not on file Legal Sex Female 3:40 AM RAILROAD AUDITOR Gender Identity Not on file Sexual Orientation Not on file documented as of this encounter Plan of Treatment Not on file documented as of this encounter Visit Diagnoses Not on filedocumented in this encounter Additional Health Concerns Infection Onset Date Last Indicated Resolved Time R/O COVID-19 01/31/2020 01/31/2020 02/02/2020 10:3 2 AM CDT documented as of this encounter Care Teams Gis Application Developer Relationship Specialty Start Date End Date Areli Gurrola MD [address] [place] [address] PCP - General Specialist 08/12/19 documented as of this encounter
--- OUTSIDE RECORDS SUMMARY | 2025-04-01 15:48 | XMS_ITS | Encounter Summary ---
Author Organization [facility] Address [address] Attn: [place] [address] Care Team Providers Care Audit Manager Name Role Phone Areli Gurrola MD [...] file Legal Sex Female 3:40 AM PRODUCTION CONTROL TECHNOLOGIST Gender Identity Not on file Sexual Orientation Not on file documented as of this encounter Plan of Treatment Not on file documented as of this encounter Visit Diagnoses Not on filedocumented in this encounter Additional Health Concerns Infection Onset Date Last Indicated Resolved Time R/O COVID-19 01/31/2020 01/31/2020 02/02/2020 10:3 2 AM CDT documented as of this encounter Care Teams Audit Manager Relationship Specialty Start Date End Date Areli Gurrola MD [address] [facility] [place] [address] PCP - General Specialist 08/12/19 documented as of this encounter
--- OUTSIDE RECORDS SUMMARY | 2025-04-01 15:48 | XMS_ITS | Encounter Summary ---
Author Organization [facility] Address [address] [facility] Attn: [place] [address] Care Team Providers Care Java Spring Developer Name Role Phone Areli Gurrola MD Primary Care Provider Encounter Details Date Type Department Care Team (Late st Contact Info) Description 08/24/1999 Outpatient Historical Joseph Ramos MD [address] [place] [address] Social History Tobacco Use Types Packs/Day Years Used Date Smoking Tobacco: Never Assessed Comments Unknown Sex and Gender Information Value Date Recorded Sex Assigned at Not on file Legal Sex Female 3:40 AM HEALTH IT SPECIALIST Gender Identity Not on file Sexual Orientation Not on file documented as of this encounter Plan of Treatment Not on file documented as of this encounter Visit Diagnoses Not on filedocumented in this encounter Additional Health Concerns Infection Onset Date Last Indicated Resolved Time R/O COVID-19 01/31/2020 01/31/2020 02/02/2020 10:3 2 AM CDT documented as of this encounter Care Teams Java Spring Developer Relationship Specialty Start Date End Date Areli Gurrola MD [address] [facility] [place] [address] PCP - General Specialist 08/12/19 documented as of this encounter
--- OUTSIDE RECORDS SUMMARY | 2025-04-01 15:48 | XMS_ITS | Encounter Summary ---
Author Organization [facility] Address [address] [place] [address] Care Team Providers Care Pie Topper Name Role Phone Areli Gurrola MD Primary Care Provider Encounter Details Date Type Department Care Team (Latest Contact Info) Description 03/14/[address] [facility] [address] [place] [address] Trell York MD [address] [place] [phone] Unspecified disorder of female genital organs (Primary Dx); Lumbago Social History Tobacco Use Types Packs/Day Years Used Date Smoking Tobacco: Never Assessed Comments Unknown Sex and Gender Information Value Date Recorded Sex Assigned at Not on file Legal Sex Female 3:40 AM RECTANGULAR TANK COOPER Gender Identity Not on file Sexual [...] documented as of this encounter Care Teams Pie Topper Relationship Specialty Start Date End Date Areli Gurrola MD [address] [facility] [place] [address] PCP - General Specialist 08/12/19 documented as of this encounter
--- OUTSIDE RECORDS SUMMARY | 2025-04-01 15:48 | XMS_ITS | Encounter Summary ---
Author Organization [facility] Address [address] [place] [address] Care Team Providers Care Stained Glass Window Designer Name Role Phone Areli Gurrola MD Primary Care Provider Encounter Details Date Type Department Care Team (Latest Contact Info) Description 10/27/1999 Outpatient Historical [facility] [address] [place] [address] Trell Yrok MD [address] [place] [phone] Lumbago (Primary Dx) Social History Tobacco Use Types Packs/Day Years Used Date Smoking Tobacco: Never Assessed Comments Unknown Sex and Gender Information Value Date Recorded Sex Assigned at Not on file Legal Sex Female 3:40 AM CRM DYNAMICS DEVELOPER Gender Identity Not on file Sexual Orientation Not on file documented as of this encounter Plan of Treatment Not on file documented as of this encounter Visit Diagnoses Diagnosis Lumbago- Primary documented in this encounter Additional Health Concerns Infection Onset Date Last Indicated Resolved Time R/O COVID-19 01/31/2020 01/31/2020 02/02/2020 10:3 2 AM CDT documented as of this encounter Care Teams Stained Glass Window Designer Relationship Specialty Start Date End Date Areli Gurrola MD [address] [facility] [place] [address] PCP - General Specialist 08/12/19 documented as of this encounter
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
--- OUTSIDE RECORDS SUMMARY | 2025-04-01 15:48 | XMS_ITS | Encounter Summary ---
Author Organization [facility] Address [address] [facility] Attn: [place] [address] Care Team Providers Care It Support Manager Name Role Phone Areli Gurrola MD Primary Care Provider Encounter Details Date Type Department Care Team (Late st Contact Info) Description 08/19/1999 Outpatient Historical Joseph Ramos MD [address] [place] [address] Social History Tobacco Use Types Packs/Day Years Used Date Smoking Tobacco: Never Assessed Comments Unknown Sex and Gender Information Value Date Recorded Sex Assigned at Not on file Legal Sex Female 3:40 AM MONITORING SPECIALIST Gender Identity Not on file Sexual Orientation Not on file documented as of this encounter Plan of Treatment Not on file documented as of this encounter Visit Diagnoses Not on filedocumented in this encounter Additional Health Concerns Infection Onset Date Last Indicated Resolved Time R/O COVID-19 01/31/2020 01/31/2020 02/02/2020 10:3 2 AM CDT documented as of this encounter Care Teams It Support Manager Relationship Specialty Start Date End Date Areli Gurrola MD [address] [facility] [place] [address] PCP - General Specialist 08/12/19 documented as of this encounter
--- OUTSIDE RECORDS SUMMARY | 2025-04-01 15:48 | XMS_ITS | Encounter Summary ---
Author Organization [facility] Address [address] [place] [address] Care Team Providers Care Spray Dry Operator Name Role Phone Areli Gurrola MD Primary Care Provider Encounter Details Date Type Department Care Team (Latest Contact Info) Description 01/07/2001 Outpatient Historical [facility] [address] [place] [address] Trell York MD [address] [place] [phone] Unspecified disorder of female genital organs (Primary Dx); Cervicalgia; Lumbago Social History Tobacco Use Types Packs/Day Years Used Date Smoking Tobacco: Never Assessed Comments Unknown Sex and Gender Information Value Date Recorded Sex Assigned at Not on file Legal Sex Female 3:40 AM MECHANICAL PROJECT MANAGER Gender Identity Not on file [...] documented as of this encounter Care Teams Spray Dry Operator Relationship Specialty Start Date End Date Areli Gurrola MD [address] [place] [address] PCP - General Specialist 08/12/19 documented as of this encounter
--- OUTSIDE RECORDS SUMMARY | 2025-04-01 15:48 | XMS_ITS | Encounter Summary ---
Author Organization [facility] Address [address] [place] [address] Care Team Providers Care Steel Welder Name Role Phone Areli Gurrola MD Primary Care Provider Encounter Details Date Type Department Care Team (Latest Contact Info) Description 06/08/1999 Outpatient [facility] [address] [place] [address] Trell York MD [address] [place] [phone] Carpal tunnel syndrome (Primary Dx); Sprain of neck; Obesity, unspecified Social History Tobacco Use Types Packs/Day Years Used Date Smoking Tobacco: Never Assessed Comments Unknown Sex and Gender Information Value Date Recorded Sex Assigned at Not on file Legal Sex Female 3:40 AM B2B ACCOUNT EXECUTIVE Gender Identity Not on file [...] documented as of this encounter Care Teams Steel Welder Relationship Specialty Start Date End Date Areli Gurrola MD [address] [facility] [place] [address] PCP - General Specialist 08/12/19 documented as of this encounter
--- OUTSIDE RECORDS SUMMARY | 2025-04-01 15:48 | XMS_ITS | Encounter Summary ---
Author Organization [facility] Address [address] [place] [address] Care Team Providers Care Sinter Press Operator Name Role Phone Areli Gurrola MD Primary Care Provider Encounter Details Date Type Department Care Team (Latest Contact Info) Description 01/30/2000 Outpatient Historical [facility] [address] [place] [address] Trell York MD [address] [place] [phone] Lumbago (Primary Dx) Social History Tobacco Use Types Packs/Day Years Used Date Smoking Tobacco: Never Assessed Comments Unknown Sex and Gender Information Value Date Recorded Sex Assigned at Not on file Legal Sex Female 3:40 AM SAS SQL DEVELOPER Gender Identity Not on file Sexual Orientation Not on file documented as of this encounter Plan of Treatment Not on file documented as of this encounter Visit Diagnoses Diagnosis Lumbago- Primary documented in this encounter Additional Health Concerns Infection Onset Date Last Indicated Resolved Time R/O COVID-19 01/31/2020 01/31/2020 02/02/2020 10:3 2 AM CDT documented as of this encounter Care Teams Sinter Press Operator Relationship Specialty Start Date End Date Areli Gurrola MD [address] [facility] [place] [address] PCP - General Specialist 08/12/19 documented as of this encounter
--- OUTSIDE RECORDS SUMMARY | 2025-04-01 15:48 | XMS_ITS | Encounter Summary ---
Author Organization [facility] Address [address] [place] [address] Care Team Providers Care Wrister Name Role Phone Areli Gurrola MD Primary Care Provider Encounter Details Date Type Department Care Team (Latest Contact Info) Description 09/08/1999 Outpatient Historical [facility] [address] [place] [address] Trell York MD [address] [place] [phone] Lumbago (Primary Dx); Obesity, unspecified Social History Tobacco Use Types Packs/Day Years Used Date Smoking Tobacco: Never Assessed Comments Unknown Sex and Gender Information Value Date Recorded Sex Assigned at Not on file Legal Sex Female 3:40 AM RN STARS Gender Identity Not on file Sexual Orientation Not on file documented as of this encounter Plan of Treatment Not on file documented as of this encounter Visit Diagnoses Diagnosis Lumbago- Primary Obesity, unspecified documented in this encounter Additional Health Concerns Infection Onset Date Last Indicated Resolved Time R/O COVID-19 01/31/2020 01/31/2020 02/02/2020 10:3 2 AM CDT documented as of this encounter Care Teams Wrister Relationship Specialty Start Date End Date Areli Gurrola MD [address] [facility] [place] [address] PCP - General Specialist 08/12/19 documented as of this encounter
--- OUTSIDE RECORDS SUMMARY | 2025-04-01 15:49 | XMS_ITS | Encounter Summary ---
Author Organization [facility] Address [address] [place] [address] Care Team Providers Care Geriatrics Physician Name Role Phone Areli Gurrola MD Primary Care Provider Encounter Details Date Type Department Care Team (Latest Contact Info) Description 04/11/2006 Outpatient Historical [facility] Medicine-[facility] [address] [place] [address] Trell York MD [address] [place] [phone] Unspecified Essential Hypertension (Primary Dx); Dysthymic Disorder; Insomnia, Unspecified; Mononeuritis of Unspecified Site Social History Tobacco Use Types Packs/Day Years Used Date Smoking Tobacco: Never Assessed Comments Unknown Sex and Gender Information Value Date Recorded Sex Assigned at Not on file Legal Sex Female 3:40 AM SPONGE CLIPPER Gender Identity Not on file Sexual Orientation [...] documented as of this encounter Care Teams Geriatrics Physician Relationship Specialty Start Date End Date Areli Gurrola MD [address] [facility] [place] [address] PCP - General Specialist 08/12/19 documented as of this encounter
--- OUTSIDE RECORDS SUMMARY | 2025-04-01 15:49 | XMS_ITS | Encounter Summary ---
Author Organization [facility] Address [address] [place] [address] Care Team Providers Care Counter Molder Name Role Phone Areli Gurrola MD Primary Care Provider Encounter Details Date Type Department Care Team (Late st Contact Info) Description 04/11/1999 Outpatient Historical [facility] Social History Tobacco Use Types Packs/Day [...] documented as of this encounter Care Teams Counter Molder Relationship Specialty Start Date End Date Areli Gurrola MD [address] [place] [address] PCP - General Specialist 08/12/19 documented as of this encounter
--- OUTSIDE RECORDS SUMMARY | 2025-04-01 15:49 | XMS_ITS | Encounter Summary ---
Author Organization [facility] Address [address] [place] [address] Care Team Providers Care Oil Well Service Operator Helper Name Role Phone Areli Gurrola MD Primary Care Provider Encounter Details Date Type Department Care Team (Late st Contact Info) Description 06/24/2003 Outpatient Historical [facility] [place] [address] [place] [address] Shayy Landry MD [address] [address] Social History Tobacco Use Types Packs/Day Years Used Date Smoking Tobacco: Never Assessed Comments Unknown Sex and Gender Information Value Date Recorded Sex Assigned at Not on file Legal Sex Female 3:40 AM HSE MANAGER Gender Identity Not on file Sexual Orientation Not on file documented as of this encounter Plan of Treatment Not on file documented as of this encounter Visit Diagnoses Not on filedocumented in this encounter Additional Health Concerns Infection Onset Date Last Indicated Resolved Time R/O COVID-19 01/31/2020 01/31/2020 02/02/2020 10:3 2 AM CDT documented as of this encounter Care Teams Oil Well Service Operator Helper Relationship Specialty Start Date End Date Areli Gurrola MD [address] [facility] [place] [address] PCP - General Specialist 08/12/19 documented as of this encounter
--- OUTSIDE RECORDS SUMMARY | 2025-04-01 15:49 | XMS_ITS | Encounter Summary ---
Author Organization [facility] Address [address] [place] [address] Care Team Providers Care Spanish Speaking Babysitter Name Role Phone Areli Gurrola MD Primary Care Provider Encounter Details Date Type Department Care Team (Late st Contact Info) Description 03/30/1999 Outpatient Historical [facility] Social History Tobacco Use Types Packs/Day Years Used Date Smoking Tobacco: Never Assessed Comments Unknown Sex and Gender Information Value Date Recorded Sex Assigned at Not on file Legal Sex Female 3:40 AM PIECE PRESSER Gender Identity Not on file Sexual Orientation Not on file documented as of this encounter Plan of Treatment Not on file documented as of this encounter Visit Diagnoses Not on filedocumented in this encounter Additional Health Concerns Infection Onset Date Last Indicated Resolved Time R/O COVID-19 01/31/2020 01/31/2020 02/02/2020 10:3 2 AM CDT documented as of this encounter Care Teams Spanish Speaking Babysitter Relationship Specialty Start Date End Date Areli Gurrola MD [address] [place] [address] PCP - General Specialist 08/12/19 documented as of this encounter
--- OUTSIDE RECORDS SUMMARY | 2025-04-01 15:49 | XMS_ITS | Encounter Summary ---
Author Organization [facility] Address [address] [place] [address] Care Team Providers Care Immigration Manager Name Role Phone Aerli Gurrola MD Primary Care Provider Encounter Details Date Type Department Care Team (Latest Contact Info) Description 06/26/[address] [facility] Cardiology [facility] [address] [place] [address] Jim Matos [place] [address] [address] [place] [address] PRECORDIAL PAIN (Primary Dx) Social History Tobacco Use Types Packs/Day Years Used Date Smoking Tobacco: Never Assessed Comments Unknown Sex and Gender Information Value Date Recorded Sex Assigned at Not on file Legal Sex Female 3:40 AM PEANUT BUTTER MAKER Gender Identity Not on file Sexual Orientation Not on file documented as of this encounter Plan of Treatment Not on file documented as of this encounter Visit Diagnoses Diagnosis Precordial pain- Primary documented in this encounter Additional Health Concerns Infection Onset Date Last Indicated Resolved Time R/O COVID-19 01/31/2020 01/31/2020 02/02/2020 10:3 2 AM CDT documented as of this encounter Care Teams Immigration Manager Relationship Specialty Start Date End Date Areli Gurrola MD [address] [facility] [place] [address] PCP - General Specialist 08/12/19 documented as of this encounter
--- OUTSIDE RECORDS SUMMARY | 2025-04-01 15:49 | XMS_ITS | Encounter Summary ---
Author Organization [facility] Address [address] [place] [address] Care Team Providers Care Chef Assistant Name Role Phone Areli Gurrola MD Primary Care Provider Encounter Details Date Type Department Care Team (Late st Contact Info) Description 04/07/1999 Outpatient Historical [facility] Social History Tobacco Use Types Packs/Day Years Used Date Smoking Tobacco: Never Assessed Comments Unknown Sex and Gender Information Value Date Recorded Sex Assigned at Not on file Legal Sex Female 3:40 AM FLIGHT ENGINEER PERFORMANCE QUALIFIED Gender Identity Not on file Sexual Orientation Not on file documented as of this encounter Plan of Treatment Not on file documented as of this encounter Visit Diagnoses Not on filedocumented in this encounter Additional Health Concerns Infection Onset Date Last Indicated Resolved Time R/O COVID-19 01/31/2020 01/31/2020 02/02/2020 10:3 2 AM CDT documented as of this encounter Care Teams Chef Assistant Relationship Specialty Start Date End Date Areli Gurrola MD [address] [place] [address] PCP - General Specialist 08/12/19 documented as of this encounter
--- OUTSIDE RECORDS SUMMARY | 2025-04-01 15:49 | XMS_ITS | Encounter Summary ---
Author Organization [facility] Address [address] [place] [address] Care Team Providers Care Camera Maker Name Role Phone Areli Gurrola MD Primary Care Provider Encounter Details Date Type Department Care Team (Latest Contact Info) Description 03/06/2005 Outpatient Historical [facility] [address] [place] [address] Trell York MD [address] [place] [phone] DENTAL DISORDER NOS (Primary Dx); CERVICALGIA; LUMBAGO; DYSTHYMIC DISORDER Social History Tobacco Use Types Packs/Day Years Used Date Smoking Tobacco: Never Assessed Comments Unknown Sex and Gender Information Value Date Recorded Sex Assigned at Not on file 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 CAR Gender Identity Not on file Sexual Orientation [...] documented as of this encounter Care Teams Camera Maker Relationship Specialty Start Date End Date Areli Gurrola MD [address] [facility] [place] [address] PCP - General Specialist 08/12/19 documented as of this encounter
--- OUTSIDE RECORDS SUMMARY | 2025-04-01 15:49 | XMS_ITS | Encounter Summary ---
Author Organization [facility] Address [address] [place] [address] Care Team Providers Care School Speech Therapist Name Role Phone Areli Gurrola MD Primary Care Provider Encounter Details Date Type Department Care Team (Latest Contact Info) Description 02/20/2005 Outpatient [facility] [address] [place] [address] Trell York MD [address] [place] [phone] LUMBAGO (Primary Dx); DYSTHYMIC DISORDER; ANXIETY STATE NOS; CERVICALGIA Social History Tobacco Use Types Packs/Day Years Used Date Smoking Tobacco: Never Assessed Comments Unknown Sex and Gender Information Value Date Recorded Sex Assigned at Not on file Legal Sex Female 3:40 AM INDUSTRY ANALYST Gender Identity Not on file Sexual [...] as of this encounter Care Teams School Speech Therapist Relationship Specialty Start Date End Date Areli Gurrola MD [address] [place] [address] PCP - General Specialist 08/12/19 documented as of this encounter
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
--- OUTSIDE RECORDS SUMMARY | 2025-04-01 15:49 | XMS_ITS | Encounter Summary ---
Author Organization [facility] Address [address] [place] [address] Care Team Providers Care Process Supervisor Name Role Phone Areli Gurrola MD Primary Care Provider Encounter Details Date Type Department Care Team (Late st Contact Info) Description 03/16/1999 Outpatient Historical [facility] Social History Tobacco Use Types Packs/Day Years Used Date Smoking Tobacco: Never Assessed Comments Unknown Sex and Gender Information Value Date Recorded Sex Assigned at Not on file Legal Sex Female 3:40 AM STAFF CYTOTECHNOLOGIST Gender Identity Not on file Sexual Orientation Not on file documented as of this encounter Plan of Treatment Not on file documented as of this encounter Visit Diagnoses Not on filedocumented in this encounter Additional Health Concerns Infection Onset Date Last Indicated Resolved Time R/O COVID-19 01/31/2020 01/31/2020 02/02/2020 10:3 2 AM CDT documented as of this encounter Care Teams Process Supervisor Relationship Specialty Start Date End Date Areli Gurrola MD [address] [place] [address] PCP - General Specialist 08/12/19 documented as of this encounter
--- OUTSIDE RECORDS SUMMARY | 2025-04-01 15:49 | XMS_ITS | Encounter Summary ---
Author Organization [facility] Address [address] [place] [address] Care Team Providers Care Jai Alai Player Name Role Phone Areli Gurrola MD Primary Care Provider Encounter Details Date Type Department Care Team (Latest Contact Info) Description 09/09/2003 Outpatient Historical [facility] [address] [place] [address] Trell York MD [address] [place] [phone] CERVICALGIA (Primary Dx) Social History Tobacco Use Types Packs/Day Years Used Date Smoking Tobacco: Never Assessed Comments Unknown Sex and Gender Information Value Date Recorded Sex Assigned at Not on file Legal Sex Female 3:40 AM KNIFE FINISHER Gender Identity Not on file Sexual Orientation Not on file documented as of this encounter Plan of Treatment Not on file documented as of this encounter Visit Diagnoses Diagnosis Cervicalgia- Primary documented in this encounter Additional Health Concerns Infection Onset Date Last Indicated Resolved Time R/O COVID-19 01/31/2020 01/31/2020 02/02/2020 10:3 2 AM CDT documented as of this encounter Care Teams Jai Alai Player Relationship Specialty Start Date End Date Areli Gurrola MD [address] [facility] [place] [address] PCP - General Specialist 08/12/19 documented as of this encounter
--- OUTSIDE RECORDS SUMMARY | 2025-04-01 15:49 | XMS_ITS | Encounter Summary ---
Author Organization [facility] Address [address] [place] [address] Care Team Providers Care Brass Chaser Name Role Phone Areli Gurrola MD Primary Care Provider Encounter Details Date Type Department Care Team (Latest Contact Info) Description 06/07/1998 Outpatient Historical [facility] Charli Perez MD NO ADDRESS ON FILE Open wound of forehead (Primary Dx) Social History Tobacco Use Types Packs/Day Years Used Date Smoking Tobacco: Never Assessed Comments Unknown Sex and Gender Information Value Date Recorded Sex Assigned at Not on file Legal Sex Female 3:40 AM SALES PROGRAM COORDINATOR Gender Identity Not on file Sexual [...] documented as of this encounter Care Teams Brass Chaser Relationship Specialty Start Date End Date Areli Gurrola MD [address] [place] [address] PCP - General Specialist 08/12/19 documented as of this encounter
--- OUTSIDE RECORDS SUMMARY | 2025-04-01 15:49 | XMS_ITS | Encounter Summary ---
Author Organization [facility] Address [address] [facility] Attn: [place] [address] Care Team Providers Care Semi Automatic Sewing Machine Operator Name Role Phone Areli Gurrola MD Primary Care Provider Encounter Details Date Type Department Care Team (Late st Contact Info) Description 03/12/1999 Outpatient Historical [place], Gibran Lynn MD [address] [facility] [address] [place] [phone] Social History Tobacco Use Types Packs/Day Years Used Date Smoking Tobacco: Never Assessed Comments Unknown Sex and Gender Information Value Date Recorded Sex Assigned at Not on file Legal Sex Female 3:40 AM LIVESTOCK RANCH HAND Gender Identity Not on file Sexual Orientation Not on file documented as of this encounter Plan of Treatment Not on file documented as of this encounter Visit Diagnoses Not on filedocumented in this encounter Additional Health Concerns Infection Onset Date Last Indicated Resolved Time R/O COVID-19 01/31/2020 01/31/2020 02/02/2020 10:3 2 AM CDT documented as of this encounter Care Teams Semi Automatic Sewing Machine Operator Relationship Specialty Start Date End Date Areli Gurrola MD [address] [facility] [place] [address] PCP - General Specialist 08/12/19 documented as of this encounter
--- OUTSIDE RECORDS SUMMARY | 2025-04-01 15:49 | XMS_ITS | Encounter Summary ---
Author Organization [facility] Address [address] [place] [address] Care Team Providers Care Feed And Farm Management Adviser Name Role Phone Areli Gurrola MD Primary Care Provider Encounter Details Date Type Department Care Team (Latest Contact Info) Description 09/14/2004 [facility] [address] [place] [address] Trell York MD [address] [place] [phone] DYSTHYMIC DISORDER (Primary Dx); CERVICALGIA; LUMBAGO Social History Tobacco Use Types Packs/Day Years Used Date Smoking Tobacco: Never Assessed Comments Unknown Sex and Gender Information Value Date Recorded Sex Assigned at Not on file Legal Sex Female 3:40 AM LABOR RELATIONS REPRESENTATIVE Gender Identity Not on file [...] documented as of this encounter Care Teams Feed And Farm Management Adviser Relationship Specialty Start Date End Date Areli Gurrola MD [address] [facility] [facility] [place] [address] PCP - General Specialist 08/12/19 documented as of this encounter
--- OUTSIDE RECORDS SUMMARY | 2025-04-01 15:49 | XMS_ITS | Encounter Summary ---
Author Organization [facility] Address [address] [place] [address] Care Team Providers Care Clinical Psychiatrist Name Role Phone Areli Gurrola MD Primary Care Provider Encounter Details Date Type Department Care Team (Latest Contact Info) Description 10/11/2005 Outpatient Historical [facility] [address] [place] [address] Trell York MD [address] [place] [phone] Dysthymic Disorder (Primary Dx); Lumbago Social History Tobacco Use Types Packs/Day Years Used Date Smoking Tobacco: Never Assessed Comments Unknown Sex and Gender Information Value Date Recorded Sex Assigned at Not on file Legal Sex Female 3:40 AM MARBLE CEILING INSTALLER Gender Identity Not on file Sexual [...] as of this encounter Care Teams Clinical Psychiatrist Relationship Specialty Start Date End Date Areli Gurrola MD [address] [facility] [place] [address] PCP - General Specialist 08/12/19 documented as of this encounter
--- OUTSIDE RECORDS SUMMARY | 2025-04-01 15:49 | XMS_ITS | Encounter Summary ---
Author Organization [facility] Address [address] [place] [address] Care Team Providers Care Web Search Evaluator Name Role Phone Areli Gurrola MD Primary Care Provider Encounter Details Date Type Department Care Team (Late st Contact Info) Description 04/05/1999 Outpatient Historical HIS [facility] Social History Tobacco Use Types Packs/Day Years Used Date Smoking Tobacco: Never Assessed Comments Unknown Sex and Gender Information Value Date Recorded Sex Assigned at Not on file Legal Sex Female 3:40 AM NITRATOR OPERATOR Gender Identity Not on file Sexual Orientation Not on file documented as of this encounter Plan of Treatment Not on file documented as of this encounter Visit Diagnoses Not on filedocumented in this encounter Additional Health Concerns Infection Onset Date Last Indicated Resolved Time R/O COVID-19 01/31/2020 01/31/2020 02/02/2020 10:3 2 AM CDT documented as of this encounter Care Teams Web Search Evaluator Relationship Specialty Start Date End Date Areli Gurrola MD [address] [place] [address] PCP - General Specialist 08/12/19 documented as of this encounter
--- OUTSIDE RECORDS SUMMARY | 2025-04-01 15:49 | XMS_ITS | Encounter Summary ---
Author Organization [facility] Address [address] [place] [address] Care Team Providers Care Lace Stripper Name Role Phone Areli Gurrola MD Primary Care Provider Encounter Details Date Type Department Care Team (Latest Contact Info) Description 05/20/2003 Outpatient Historical [facility] [address] [place] [address] Trell York MD [address] [place] [phone] ACUTE BRONCHITIS (Primary Dx) Social History Tobacco Use Types Packs/Day Years Used Date Smoking Tobacco: Never Assessed Comments Unknown Sex and Gender Information Value Date Recorded Sex Assigned at Not on file Legal Sex Female 3:40 AM 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 PROCESSING SUPERVISOR Gender Identity Not on file Sexual Orientation Not on file documented as of this encounter Plan of Treatment Not on file documented as of this encounter Visit Diagnoses Diagnosis Acute bronchitis- Primary documented in this encounter Additional Health Concerns Infection Onset Date Last Indicated Resolved Time R/O COVID-19 01/31/2020 01/31/2020 02/02/2020 10:3 2 AM CDT documented as of this encounter Care Teams Lace Stripper Relationship Specialty Start Date End Date Areli Gurrola MD [address] [facility] [place] [address] PCP - General Specialist 08/12/19 documented as of this encounter
--- OUTSIDE RECORDS SUMMARY | 2025-04-01 15:49 | XMS_ITS | Encounter Summary ---
Author Organization [facility] Address [address] [place] [address] Care Team Providers Care Banquet Chef Name Role Phone Areli Gurrola MD Primary Care Provider Encounter Details Date Type Department Care Team (Latest Contact Info) Description 09/12/2005 Outpatient Historical [facility] [address] [place] [address] Trell Maria Jr., MD [address] [place] [address] Anxiety State, Unspecified (Primary Dx) Social History Tobacco Use Types Packs/Day Years Used Date Smoking Tobacco: Never Assessed Comments Unknown Sex and Gender Information Value Date Recorded Sex Assigned at Not on file Legal Sex Female 3:40 AM PACKAGING SALES REPRESENTATIVE Gender Identity Not on file [...] as of this encounter Care Teams Banquet Chef Relationship Specialty Start Date End Date Areli Gurrola MD [address] [facility] [place] [place] [address] PCP - General Specialist 08/12/19 documented as of this encounter
--- OUTSIDE RECORDS SUMMARY | 2025-04-01 15:49 | XMS_ITS | Encounter Summary ---
Author Organization [facility] Address [address] [place] [address] Care Team Providers Care Meeting Coordinator Name Role Phone Areli Gurrola MD Primary Care Provider Encounter Details Date Type Department Care Team (Latest Contact Info) Description 07/07/2004 Outpatient Historical [facility] [place] [address] [place] [address] Trell York MD [address] [place] [address] CERVICAL DISC DISPLACMNT (Primary Dx) Social History Tobacco Use Types Packs/Day Years Used Date Smoking Tobacco: Never Assessed Comments Unknown Sex and Gender Information Value Date Recorded Sex Assigned at Not on file Legal Sex Female 3:40 AM VELOCITY SHOOTER Gender Identity Not on file Sexual Orientation [...] documented as of this encounter Care Teams Meeting Coordinator Relationship Specialty Start Date End Date Areli Gurrola MD [address] [facility] [place] [address] PCP - General Specialist 08/12/19 documented as of this encounter
--- OUTSIDE RECORDS SUMMARY | 2025-04-01 15:49 | XMS_ITS | Encounter Summary ---
Author Organization [facility] Address [address] [place] [address] Care Team Providers Care Transportation Associate Name Role Phone Areli Gurrola MD Primary Care Provider Encounter Details Date Type Department Care Team (Late st Contact Info) Description 03/31/1999 Outpatient Historical HIS [facility] Social History Tobacco Use Types Packs/Day Years Used Date Smoking Tobacco: Never Assessed Comments Unknown Sex and Gender Information Value Date Recorded Sex Assigned at Not on file Legal Sex Female 3:40 AM CORING MACHINE OPERATOR Gender Identity Not on file Sexual Orientation Not on file documented as of this encounter Plan of Treatment Not on file documented as of this encounter Visit Diagnoses Not on filedocumented in this encounter Additional Health Concerns Infection Onset Date Last Indicated Resolved Time R/O COVID-19 01/31/2020 01/31/2020 02/02/2020 10:3 2 AM CDT documented as of this encounter Care Teams Transportation Associate Relationship Specialty Start Date End Date Areli Gurrola MD [address] [place] [address] PCP - General Specialist 08/12/19 documented as of this encounter
--- OUTSIDE RECORDS SUMMARY | 2025-04-01 15:49 | XMS_ITS | Encounter Summary ---
Author Organization [facility] Address [address] [place] [address] Care Team Providers Care Card Lacer Name Role Phone Areli Gurrola MD Primary Care Provider Encounter Details Date Type Department Care Team (Late st Contact Info) Description 03/18/1999 Outpatient Historical HIS [facility] Social History Tobacco Use Types Packs/Day Years Used Date Smoking Tobacco: Never Assessed Comments Unknown Sex and Gender Information Value Date Recorded Sex Assigned at Not on file Legal Sex Female 3:40 AM LINUX SECURITY ADMINISTRATOR Gender Identity Not on file Sexual Orientation Not on file documented as of this encounter Plan of Treatment Not on file documented as of this encounter Visit Diagnoses Not on filedocumented in this encounter Additional Health Concerns Infection Onset Date Last Indicated Resolved Time R/O COVID-19 01/31/2020 01/31/2020 02/02/2020 10:3 2 AM CDT documented as of this encounter Care Teams Card Lacer Relationship Specialty Start Date End Date Areli Gurrola MD [address] [place] [address] PCP - General Specialist 08/12/19 documented as of this encounter
--- OUTSIDE RECORDS SUMMARY | 2025-04-01 15:49 | XMS_ITS | Encounter Summary ---
Author Organization [facility] Address [address] [place] [address] Care Team Providers Care Rotary Shear Worker Helper Name Role Phone Areli Gurrola MD Primary Care Provider Encounter Details Date Type Department Care Team (Latest Contact Info) Description 07/06/2004 Outpatient Historical [facility] [address] [place] [address] Trell York MD [address] [place] [address] DYSTHYMIC DISORDER (Primary Dx); BACKACHE NOS; CERVICALGIA Social History Tobacco Use Types Packs/Day Years Used Date Smoking Tobacco: Never Assessed Comments Unknown Sex and Gender Information Value Date Recorded Sex Assigned at Not on file Legal Sex Female 3:40 AM EXERCISE PLANNER Gender Identity Not on file Sexual [...] documented as of this encounter Care Teams Rotary Shear Worker Helper Relationship Specialty Start Date End Date Areli Gurrola MD [address] [place] [address] PCP - General Specialist 08/12/19 documented as of this encounter
--- OUTSIDE RECORDS SUMMARY | 2025-04-01 15:49 | XMS_ITS | Encounter Summary ---
Author Organization [facility] Address [address] [place] [address] Care Team Providers Care Technician Terminal And Repeater Name Role Phone Areli Gurrola MD Primary Care Provider Encounter Details Date Type Department Care Team (Latest Contact Info) Description 01/11/2004 Outpatient Historical [facility] [address] [place] [address] Trell York MD [address] [place] [phone] CERVICALGIA (Primary Dx); DYSTHYMIC DISORDER Social History Tobacco Use Types Packs/Day Years Used Date Smoking Tobacco: Never Assessed Comments Unknown Sex and Gender Information Value Date Recorded Sex Assigned at Not on file Legal Sex Female 3:40 AM DIABETES NURSE Gender Identity Not on file Sexual [...] documented as of this encounter Care Teams Technician Terminal And Repeater Relationship Specialty Start Date End Date Areli Gurrola MD [address] [place] [address] PCP - General Specialist 08/12/19 documented as of this encounter
--- OUTSIDE RECORDS SUMMARY | 2025-04-01 15:49 | XMS_ITS | Encounter Summary ---
Author Organization [facility] Address [address] [place] [address] Care Team Providers Care Electronics System Mechanic Name Role Phone Areli Gurrola MD Primary Care Provider Encounter Details Date Type Department Care Team (Late st Contact Info) Description 05/14/2003 Outpatient Historical [facility] [address] [place] [address] Roman Law, DO [address] [place] [phone] ACUTE SINUSITIS NOS (Primary Dx) Social History Tobacco Use Types Packs/Day Years Used Date Smoking Tobacco: Never Assessed Comments Unknown Sex and Gender Information Value Date Recorded Sex Assigned at Not on file Legal Sex Female 3:40 AM FINISHING RANGE FEEDER Gender Identity Not on file Sexual [...] documented as of this encounter Care Teams Electronics System Mechanic Relationship Specialty Start Date End Date Areli Gurrola MD [address] [place] [address] PCP - General Specialist 08/12/19 documented as of this encounter
--- OUTSIDE RECORDS SUMMARY | 2025-04-01 15:49 | XMS_ITS | Encounter Summary ---
Author Organization [facility] Address [address] [place] [address] Care Team Providers Care Mold Filler Plastic Dolls Name Role Phone Areli Gurrola MD Primary Care Provider Encounter Details Date Type Department Care Team (Late st Contact Info) Description 04/14/1999 Outpatient Historical [facility] Social History Tobacco Use Types Packs/Day Years Used Date Smoking Tobacco: Never Assessed Comments Unknown Sex and Gender Information Value Date Recorded Sex Assigned at Not on file Legal Sex Female 3:40 AM MOVIE CRITIC Gender Identity Not on file Sexual Orientation Not on file documented as of this encounter Plan of Treatment Not on file documented as of this encounter Visit Diagnoses Not on filedocumented in this encounter Additional Health Concerns Infection Onset Date Last Indicated Resolved Time R/O COVID-19 01/31/2020 01/31/2020 02/02/2020 10:3 2 AM CDT documented as of this encounter Care Teams Mold Filler Plastic Dolls Relationship Specialty Start Date End Date Areli Gurrola MD [address] [place] [address] PCP - General Specialist 08/12/19 documented as of this encounter
--- OUTSIDE RECORDS SUMMARY | 2025-04-01 15:49 | XMS_ITS | Encounter Summary ---
Author Organization [facility] Address [address] [place] [address] Care Team Providers Care Potter Or Ceramic Artist Name Role Phone Areli Gurrola MD Primary Care Provider Encounter Details Date Type Department Care Team (Late st Contact Info) Description 04/14/1999 Outpatient Historical HIS [facility] Social History Tobacco Use Types Packs/Day Years Used Date Smoking Tobacco: Never Assessed Comments Unknown Sex and Gender Information Value Date Recorded Sex Assigned at Not on file Legal Sex Female 3:40 AM BAG BAILER Gender Identity Not on file Sexual Orientation Not on file documented as of this encounter Plan of Treatment Not on file documented as of this encounter Visit Diagnoses Not on filedocumented in this encounter Additional Health Concerns Infection Onset Date Last Indicated Resolved Time R/O COVID-19 01/31/2020 01/31/2020 02/02/2020 10:3 2 AM CDT documented as of this encounter Care Teams Potter Or Ceramic Artist Relationship Specialty Start Date End Date Areli Gurrola MD [address] [place] [address] PCP - General Specialist 08/12/19 documented as of this encounter
--- OUTSIDE RECORDS SUMMARY | 2025-04-01 15:49 | XMS_ITS | Encounter Summary ---
Author Organization [facility] Address [address] [place] [address] Care Team Providers Care Tobacco Stemmer Name Role Phone Areli Gurrola MD Primary Care Provider Encounter Details Date Type Department Care Team (Late st Contact Info) Description 03/25/1999 Outpatient Historical HIS [facility] Social History Tobacco Use Types Packs/Day Years Used Date Smoking Tobacco: Never Assessed Comments Unknown Sex and Gender Information Value Date Recorded Sex Assigned at Not on file Legal Sex Female 3:40 AM ROOFER METAL Gender Identity Not on file Sexual Orientation Not on file documented as of this encounter Plan of Treatment Not on file documented as of this encounter Visit Diagnoses Not on filedocumented in this encounter Additional Health Concerns Infection Onset Date Last Indicated Resolved Time R/O COVID-19 01/31/2020 01/31/2020 02/02/2020 10:3 2 AM CDT documented as of this encounter Care Teams Tobacco Stemmer Relationship Specialty Start Date End Date Areli Gurrola MD [address] [place] [address] PCP - General Specialist 08/12/19 documented as of this encounter
--- OUTSIDE RECORDS SUMMARY | 2025-04-01 15:49 | XMS_ITS | Encounter Summary ---
Author Organization [facility] Address [address] [place] [address] Care Team Providers Care Trade Embalmer Name Role Phone Areli Gurrola MD Primary Care Provider Encounter Details Date Type Department Care Team (Latest Contact Info) Description 05/03/1999 Outpatient Historical [facility] [place] [place] [address] [place], Gibran Lynn MD [address] [place] [address] Cramp of limb (Primary Dx); Contracture of hand joint Social History Tobacco Use Types Packs/Day Years Used Date Smoking Tobacco: Never Assessed Comments Unknown Sex and Gender Information Value Date Recorded Sex Assigned at Not on file Legal Sex Female 3:40 AM OIL WELL SERVICE OPERATOR Gender Identity Not on file Sexual [...] documented as of this encounter Care Teams Trade Embalmer Relationship Specialty Start Date End Date Areli Gurrola MD [address] [place] [address] PCP - General Specialist 08/12/19 documented as of this encounter
--- OUTSIDE RECORDS SUMMARY | 2025-04-01 15:49 | XMS_ITS | Encounter Summary ---
Author Organization [facility] Address [address] [place] [address] Care Team Providers Care Restaurant Greeter Name Role Phone Areli Gurrola MD Primary Care Provider Encounter Details Date Type Department Care Team (Latest Contact Info) Description 03/14/1999 Outpatient [facility] [address] [place] [address] Ti Rondon MD [address] [place] [address] Abdominal pain, unspecified site (Primary Dx); Fever and other physiologic disturbances of temperature regulation; Backache, unspecified Social History Tobacco Use Types Packs/Day Years Used Date Smoking Tobacco: Never Assessed Comments Unknown Sex and Gender Information Value Date Recorded Sex Assigned at Not on file Legal Sex Female 3:40 AM ANGIOGRAPHY NURSE Gender Identity Not on file Sexual [...] documented as of this encounter Care Teams Restaurant Greeter Relationship Specialty Start Date End Date Areli Gurrola MD [address] [place] [address] PCP - General Specialist 08/12/19 documented as of this encounter
--- OUTSIDE RECORDS SUMMARY | 2025-04-01 15:49 | XMS_ITS | Patient Health Record ---
Author Organization [facility] Address [address] [facility] [place] [address] Care Team Providers Care Chief Environmental Commitment Officer Name Role Phone Joseph Lewis MD Primary Care Provider Zane Joiner Unavailable [phone] ELROY BOOTHE Unavailable Unavailable Reason For Referral Reason eval and treat Diagnosis 1 Radiculopathy, lumba r region (M54.16) Referring Provider First Name Aida Referring Provider Last Name Carlton Referring Provider Speciality Physician Clearing Distribution Clerk Referred Organization [facility] Referred Provider Tam Fairchild Referred Address [address] [facility],[address], Referred Provider Specialty Intervention al Pain Medicine [...] drug interaction check* Fluticasone Furoate 27.5mcg/1spray Nasal [place] Use 2 spray(s) in each nostril daily 05/28/2008 Active Immunizations Vaccine Route Administration Date Status Comme nts Influenza (whole), CPT 85353 Inactive Unknown 10/15/2018 Administered Social History Social [...] Severe recurrent major depression without psychotic features (60983094) Major depressive disorder, 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.2) Active confirmed Problem Severe recurrent major depression with psychotic features (03669216) Major depressive disorder, recurrent, 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) Active confirmed Problem Adjustment disorder with mixed disturbance of emotions AND conduct (04823433) Adjustment disorder with mixed disturbance of emotions and conduct (F43.25) Active confirmed Problem Borderline personality disorder (46662223) Borderline personality disorder (F60.3) Active confirmed Problem Lumbar radiculopathy (236786931) Radiculopathy, lumbar region (M54.16) Active confirmed Problem History of psychiatric disorder (869770528) Personal history of other mental and behavioral disorders (Z86.59) Active confirmed Problem Alcohol abuse (73925384) Alcohol abuse (F10.10) Active confirmed Problem Major depression, single episode (85978382) Depression, major (F32.9) Active confirmed Problem History of methamphetamine abuse (situation) (90556246090575548 ) 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 confirmed Problem Chronic pain (83852275) Chronic pain (G89.29) Active confirmed Problem Polysubstance abuse (938828835) Polysubstance abuse (F19.10) Active confirmed Problem Cannabis abuse (01819326) Cannabis abuse (F12.10) Active confirmed Problem Low back pain (524084980) Low back pain (724.2) 009 Active confirmed [id number] 911- Problem Fibromyalgia (210988752) Fibromyalgia (729.1) 009 Problem resolved confirmed [id number] 911- Plan Of Treatment No Information Insurance Providers Payer Name Payer Address Payer Phone Subscriber Number Group Number Insured Name Patient Relationship to Insured Coverage Start Date Coverage End Date [facility] [address] [address] [place] [address] [id number] Kay Gamboa Self - patient is the insured [place] [address] [place] [address] [id number] Kay Gamboa Self - patient is the insured Medical (General) History Surgical History Surgery Date(Month/Year) Appendectomy Biopsy of Bone Marrow Carpal tunnel surgery Gallbladder surgery Hysterectomy Laminectomy Tonsillectomy
--- OUTSIDE RECORDS SUMMARY | 2025-04-01 15:49 | XMS_ITS | Encounter Summary ---
Author Organization [facility] Address [address] [place] [address] Care Team Providers Care Crime Scene Specialist Name Role Phone Areli Gurrola MD Primary Care Provider Encounter Details Date Type Department Care Team (Late st Contact Info) Description 03/31/1999 Outpatient Historical [facility] Social History Tobacco Use Types Packs/Day Years Used Date Smoking Tobacco: Never Assessed Comments Unknown Sex and Gender Information Value Date Recorded Sex Assigned at Not on file Legal Sex Female 3:40 AM BUZZSAW OPERATOR Gender Identity Not on file Sexual Orientation Not on file documented as of this encounter Plan of Treatment Not on file documented as of this encounter Visit Diagnoses Not on filedocumented in this encounter Additional Health Concerns Infection Onset Date Last Indicated Resolved Time R/O COVID-19 01/31/2020 01/31/2020 02/02/2020 10:3 2 AM CDT documented as of this encounter Care Teams Crime Scene Specialist Relationship Specialty Start Date End Date Areli Gurrola MD [address] [place] [address] PCP - General Specialist 08/12/19 documented as of this encounter
--- OUTSIDE RECORDS SUMMARY | 2025-04-01 15:49 | XMS_ITS | Encounter Summary ---
Author Organization [facility] Address [address] [place] [address] Care Team Providers Care Auto Service Writer Name Role Phone Areli Gurrola MD Primary Care Provider Encounter Details Date Type Department Care Team (Late st Contact Info) Description 04/11/1999 Outpatient Historical HIS [facility] Social History Tobacco Use Types Packs/Day Years Used Date Smoking Tobacco: Never Assessed Comments Unknown Sex and Gender Information Value Date Recorded Sex Assigned at Not on file Legal Sex Female 3:40 AM DIRECTOR CLOUD TRANSFORMATION Gender Identity Not on file Sexual Orientation Not on file documented as of this encounter Plan of Treatment Not on file documented as of this encounter Visit Diagnoses Not on filedocumented in this encounter Additional Health Concerns Infection Onset Date Last Indicated Resolved Time R/O COVID-19 01/31/2020 01/31/2020 02/02/2020 10:3 2 AM CDT documented as of this encounter Care Teams Auto Service Writer Relationship Specialty Start Date End Date Areli Gurrola MD [address] [place] [address] PCP - General Specialist 08/12/19 documented as of this encounter
--- OUTSIDE RECORDS SUMMARY | 2025-04-01 15:49 | XMS_ITS | Encounter Summary ---
Author Organization [facility] Address [address] [facility] Attn: [place] [address] Care Team Providers Care Gear Cutter Name Role Phone Areli Gurrola MD [...] on file Legal Sex Female 3:40 AM CAUSTIC PREPARER Gender Identity Not on file Sexual Orientation Not on file documented as of this encounter Plan of Treatment Not on file documented as of this encounter Visit Diagnoses Not on filedocumented in this encounter Additional Health Concerns Infection Onset Date Last Indicated Resolved Time R/O COVID-19 01/31/2020 01/31/2020 02/02/2020 10:3 2 AM CDT documented as of this encounter Care Teams Gear Cutter Relationship Specialty Start Date End Date Areli Gurrola MD [address] [facility] [place] [address] PCP - General Specialist 08/12/19 documented as of this encounter
--- OUTSIDE RECORDS SUMMARY | 2025-04-01 15:49 | XMS_ITS | Encounter Summary ---
Author Organization [facility] Address [address] [place] [address] Care Team Providers Care Sales Technician Home Theater Name Role Phone Areli Gurrola MD Primary Care Provider Encounter Details Date Type Department Care Team (Late st Contact Info) Description 03/11/1999 Outpatient Historical HIS [facility] Social History Tobacco Use Types Packs/Day Years Used Date Smoking Tobacco: Never Assessed Comments Unknown Sex and Gender Information Value Date Recorded Sex Assigned at Not on file Legal Sex Female 3:40 AM DIRT BIKE MECHANIC Gender Identity Not on file Sexual Orientation Not on file documented as of this encounter Plan of Treatment Not on file documented as of this encounter Visit Diagnoses Not on filedocumented in this encounter Additional Health Concerns Infection Onset Date Last Indicated Resolved Time R/O COVID-19 01/31/2020 01/31/2020 02/02/2020 10:3 2 AM CDT documented as of this encounter Care Teams Sales Technician Home Theater Relationship Specialty Start Date End Date Areli Gurrola MD [address] [place] [address] PCP - General Specialist 08/12/19 documented as of this encounter
--- OUTSIDE RECORDS SUMMARY | 2025-04-01 15:49 | XMS_ITS | Encounter Summary ---
Author Organization [facility] Address [address] [place] [address] Care Team Providers Care Lamination Inspector Name Role Phone Areli Gurrola MD Primary Care Provider Encounter Details Date Type Department Care Team (Late st Contact Info) Description 03/28/1999 Outpatient Historical HIS [facility] Social History Tobacco Use Types Packs/Day Years Used Date Smoking Tobacco: Never Assessed Comments Unknown Sex and Gender Information Value Date Recorded Sex Assigned at Not on file Legal Sex Female 3:40 AM DOG DAYCARE PROVIDER Gender Identity Not on file Sexual Orientation Not on file documented as of this encounter Plan of Treatment Not on file documented as of this encounter Visit Diagnoses Not on filedocumented in this encounter Additional Health Concerns Infection Onset Date Last Indicated Resolved Time R/O COVID-19 01/31/2020 01/31/2020 02/02/2020 10:3 2 AM CDT documented as of this encounter Care Teams Lamination Inspector Relationship Specialty Start Date End Date Areli Gurrola MD [address] [place] [address] PCP - General Specialist 08/12/19 documented as of this encounter
--- OUTSIDE RECORDS SUMMARY | 2025-04-01 15:49 | XMS_ITS | Encounter Summary ---
Author Organization [facility] Address [address] [place] [address] Care Team Providers Care City Engineer Name Role Phone Areli Gurrola MD Primary Care Provider Encounter Details Date Type Department Care Team (Late st Contact Info) Description 04/07/1999 Outpatient Historical [facility] Social History Tobacco Use Types Packs/Day Years Used Date Smoking Tobacco: Never Assessed Comments Unknown Sex and Gender Information Value Date Recorded Sex Assigned at Not on file Legal Sex Female 3:40 AM ARTIFICIAL FLY TIER Gender Identity Not on file Sexual Orientation Not on file documented as of this encounter Plan of Treatment Not on file documented as of this encounter Visit Diagnoses Not on filedocumented in this encounter Additional Health Concerns Infection Onset Date Last Indicated Resolved Time R/O COVID-19 01/31/2020 01/31/2020 02/02/2020 10:3 2 AM CDT documented as of this encounter Care Teams City Engineer Relationship Specialty Start Date End Date Areli Gurrola MD [address] [place] [address] PCP - General Specialist 08/12/19 documented as of this encounter
--- OUTSIDE RECORDS SUMMARY | 2025-04-01 15:49 | XMS_ITS | Encounter Summary ---
Author Organization [facility] Address [address] [place] [address] Care Team Providers Care Veneer Taping Machine Operator Name Role Phone Areli Gurrola MD Primary Care Provider Encounter Details Date Type Department Care Team (Latest Contact Info) Description 04/25/2004 Outpatient Historical [facility] [address] [place] [address] Trell York MD [address] [place] [phone] DYSTHYMIC DISORDER (Primary Dx); LUMBAGO; Pain in limb; Inflamed seborr keratos Social History Tobacco Use Types Packs/Day Years Used Date Smoking Tobacco: Never Assessed Comments Unknown Sex and Gender Information Value Date Recorded Sex Assigned at Not on file Legal Sex Female 3:40 AM MERCHANDISING ASSISTANT Gender Identity Not on file Sexual [...] documented as of this encounter Care Teams Veneer Taping Machine Operator Relationship Specialty Start Date End Date Areli Gurrola MD [address] [facility] [place] [address] PCP - General Specialist 08/12/19 documented as of this encounter
--- OUTSIDE RECORDS SUMMARY | 2025-04-01 15:49 | XMS_ITS | Encounter Summary ---
Author Organization [facility] Address [address] [place] [address] Care Team Providers Care Tire Recapping Machine Operator Name Role Phone Areli Gurrola MD Primary Care Provider Encounter Details Date Type Department Care Team (Latest Contact Info) Description 03/23/1999 Outpatient [facility] [place] [address] [place] [address] Alumno, Gibran Lynn MD [address] [place] [address] Unspecified viral infection, in conditions classified elsewhere and of unspecified site (Primary Dx); Sprain and strain of other specified sites of shoulder and upper arm; Tobacco use disorder Social History Tobacco Use Types Packs/Day Years Used Date Smoking Tobacco: Never Assessed Comments Unknown Sex and Gender Information Value Date Recorded Sex Assigned at Not on file Legal Sex Female 3:40 AM FISHING VESSEL DECKHAND Gender Identity Not on file Sexual Orientation [...] as of this encounter Care Teams Tire Recapping Machine Operator Relationship Specialty Start Date End Date Areli Gurrola MD [address] [place] [address] PCP - General Specialist 08/12/19 documented as of this encounter
--- OUTSIDE RECORDS SUMMARY | 2025-04-01 15:49 | XMS_ITS | Encounter Summary ---
Author Organization [facility] Address [address] [place] [address] Care Team Providers Care Used Car Manager Name Role Phone Areli Gurrola MD Primary Care Provider Encounter Details Date Type Department Care Team (Late st Contact Info) Description 07/07/2004 Outpatient Historical [facility] [address] [place] [address] Social History Tobacco Use Types Packs/Day Years Used Date Smoking Tobacco: Never Assessed Comments Unknown Sex and Gender Information Value Date Recorded Sex Assigned at Not on file Legal Sex Female 3:40 AM ELECTRONIC WARFARE LINGUIST Gender Identity Not on file Sexual Orientation Not on file documented as of this encounter Plan of Treatment Not on file documented as of this encounter Visit Diagnoses Not on filedocumented in this encounter Additional Health Concerns Infection Onset Date Last Indicated Resolved Time R/O COVID-19 01/31/2020 01/31/2020 02/02/2020 10:3 2 AM CDT documented as of this encounter Care Teams Used Car Manager Relationship Specialty Start Date End Date Areli Gurrola MD [address] [place] [address] PCP - General Specialist 08/12/19 documented as of this encounter
--- OUTSIDE RECORDS SUMMARY | 2025-04-01 15:49 | XMS_ITS | Encounter Summary ---
Author Organization [facility] Address [address] [place] [address] Care Team Providers Care Air Surveillance Operator Name Role Phone Areli Gurrola MD Primary Care Provider Encounter Details Date Type Department Care Team (Latest Contact Info) Description 06/04/1998 Outpatient Historical [facility] Charli Perez MD NO ADDRESS ON FILE Open wound of forehead (Primary Dx) Social History Tobacco Use Types Packs/Day Years Used Date Smoking Tobacco: Never Assessed Comments Unknown Sex and Gender Information Value Date Recorded Sex Assigned at Not on file Legal Sex Female 3:40 AM SENIOR REACTOR OPERATOR Gender Identity Not on file [...] documented as of this encounter Care Teams Air Surveillance Operator Relationship Specialty Start Date End Date Areli Gurrola MD [address] [place] [address] PCP - General Specialist 08/12/19 documented as of this encounter
--- OUTSIDE RECORDS SUMMARY | 2025-04-01 15:49 | XMS_ITS | Encounter Summary ---
Author Organization [facility] Address [address] [place] [address] Care Team Providers Care Polysomnograph Tech Name Role Phone Areli Gurrola MD [...] file Legal Sex Female 3:40 AM TECHNICAL SALES MANAGER Gender Identity Not on file Sexual Orientation Not on file documented as of this encounter Plan of Treatment Not on file documented as of this encounter Visit Diagnoses Not on filedocumented in this encounter Additional Health Concerns Infection Onset Date Last Indicated Resolved Time R/O COVID-19 01/31/2020 01/31/2020 02/02/2020 10:3 2 AM CDT documented as of this encounter Care Teams Polysomnograph Tech Relationship Specialty Start Date End Date Areli Gurrola MD [address] [place] [address] PCP - General Specialist 08/12/19 documented as of this encounter
--- OUTSIDE RECORDS SUMMARY | 2025-04-01 15:50 | XMS_ITS | Encounter Summary ---
Author Organization [facility] Address [address] [place] [address] Care Team Providers Care Felt Cementer Name Role Phone Areli Gurrola MD Primary Care Provider Encounter Details Date Type Department Care Team (Latest Contact Info) Description 05/11/2003 Outpatient Historical [facility] [address] [place] [address] Trell York MD [address] [place] [phone] CERVICALGIA (Primary Dx) Social History Tobacco Use Types Packs/Day Years Used Date Smoking Tobacco: Never Assessed Comments Unknown Sex and Gender Information Value Date Recorded Sex Assigned at Not on file Legal Sex Female 3:40 AM PHARMACY ASSISTANT Gender Identity Not on file Sexual Orientation Not on file documented as of this encounter Plan of Treatment Not on file documented as of this encounter Visit Diagnoses Diagnosis Cervicalgia- Primary documented in this encounter Additional Health Concerns Infection Onset Date Last Indicated Resolved Time R/O COVID-19 01/31/2020 01/31/2020 02/02/2020 10:3 2 AM CDT documented as of this encounter Care Teams Felt Cementer Relationship Specialty Start Date End Date Areli Gurrola MD [address] [facility] [place] [address] PCP - General Specialist 08/12/19 documented as of this encounter
--- OUTSIDE RECORDS SUMMARY | 2025-04-01 15:50 | XMS_ITS | Encounter Summary ---
Author Organization [facility] Address [address] [place] [address] Care Team Providers Care Quality Assurance Advisor Name Role Phone Areli Gurrola MD Primary Care Provider Encounter Details Date Type Department Care Team (Latest Contact Info) Description 10/09/2002 Outpatient Historical [facility] [address] [place] [address] Gordon Cabral MD NO ADDRESS ON FILE Excessive menstruation (Primary Dx) Social History Tobacco Use Types Packs/Day Years Used Date Smoking Tobacco: Never Assessed Comments Unknown Sex and Gender Information Value Date Recorded Sex Assigned at Not on file Legal Sex Female 3:40 AM CUSTODIAN BLOOD BANK Gender Identity Not on file Sexual Orientation [...] of this encounter Care Teams Quality Assurance Advisor Relationship Specialty Start Date End Date Areli Gurrola MD [address] [facility] [address] PCP - General Specialist 08/12/19 documented as of this encounter
--- OUTSIDE RECORDS SUMMARY | 2025-04-01 15:50 | XMS_ITS | Encounter Summary ---
Author Organization [facility] Address [address] [place] [address] Care Team Providers Care Prosthetic Assistant Name Role Phone Areli Gurrola MD Primary Care Provider Encounter Details Date Type Department Care Team (Latest Contact Info) Description 03/26/2002 Outpatient Historical [facility] [address] [place] [address] Trell York MD [address] [place] [phone] CERVICALGIA (Primary Dx); ABDOMINAL PAIN UNSPEC SITE Social History Tobacco Use Types Packs/Day Years Used Date Smoking Tobacco: Never Assessed Comments Unknown Sex and Gender Information Value Date Recorded Sex Assigned at Not on file Legal Sex Female 3:40 AM TOP LIFT NAILER Gender Identity Not on file Sexual Orientation [...] documented as of this encounter Care Teams Prosthetic Assistant Relationship Specialty Start Date End Date Areli Gurrola MD [address] [facility] [place] [address] PCP - General Specialist 08/12/19 documented as of this encounter
--- OUTSIDE RECORDS SUMMARY | 2025-04-01 15:50 | XMS_ITS | Encounter Summary ---
Author Organization [facility] Address [address] [place] [address] Care Team Providers Care Lining Stuffer Name Role Phone Areli Gurrola MD Primary Care Provider Encounter Details Date Type Department Care Team (Latest Contact Info) Description 10/28/2002 Outpatient Historical [facility] [address] [place] [address] Gordon Cabral MD NO ADDRESS ON FILE SURGERY FOLLOWUP, UNSPEC (Primary Dx) Social History Tobacco Use Types Packs/Day Years Used Date Smoking Tobacco: Never Assessed Comments Unknown Sex and Gender Information Value Date Recorded Sex Assigned at Not on file Legal Sex Female 3:40 AM EVICTION SPECIALIST Gender Identity Not on file Sexual [...] documented as of this encounter Care Teams Lining Stuffer Relationship Specialty Start Date End Date Areli Gurrola MD [address] [facility] [place] [address] PCP - General Specialist 08/12/19 documented as of this encounter
--- OUTSIDE RECORDS SUMMARY | 2025-04-01 15:50 | XMS_ITS | Encounter Summary ---
Author Organization [facility] Address [address] [place] [address] Care Team Providers Care Sccm Administrator Name Role Phone Areli Gurrola MD Primary Care Provider Encounter Details Date Type Department Care Team (Latest Contact Info) Description 12/02/[address] 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
--- OUTSIDE RECORDS SUMMARY | 2025-04-01 15:50 | XMS_ITS | Encounter Summary ---
Author Organization [facility] Address [address] [place] [address] Care Team Providers Care Cell Stripper Final Name Role Phone Areli Gurrola MD Primary Care Provider Encounter Details Date Type Department Care Team (Latest Contact Info) Description 10/16/2002 Outpatient [facility] [address] [place] [address] Gordon Cabral MD NO ADDRESS ON FILE PREOP EXAM OTHER SPECIFIED (Primary Dx); Excessive menstruation Social History Tobacco Use Types Packs/Day Years Used Date Smoking Tobacco: Never Assessed Comments Unknown Sex and Gender Information Value Date Recorded Sex Assigned at Not on file Legal Sex Female 3:40 AM MOLD MECHANIC Gender Identity Not on file Sexual [...] documented as of this encounter Care Teams Cell Stripper Final Relationship Specialty Start Date End Date Areli Gurrola MD [address] [place] [address] PCP - General Specialist 08/12/19 documented as of this encounter
--- OUTSIDE RECORDS SUMMARY | 2025-04-01 15:50 | XMS_ITS | Encounter Summary ---
Author Organization [facility] Address [address] [place] [address] Care Team Providers Care Manager Library Name Role Phone Areli Gurrola MD Primary Care Provider Encounter Details Date Type Department Care Team (Latest Contact Info) Description 10/22/2002 Outpatient Historical [facility] Operating Room [address] [place] [address] Gordon Cabral MD NO ADDRESS ON FILE POLYP OF CORPUS UTERI (Primary Dx) Social History Tobacco Use Types Packs/Day Years Used Date Smoking Tobacco: Never Assessed Comments Unknown Sex and Gender Information Value Date Recorded Sex Assigned at Not on file Legal Sex Female 3:40 AM HORN PLAYER Gender Identity Not on file Sexual Orientation [...] as of this encounter Care Teams Manager Library Relationship Specialty Start Date End Date Areli Gurrola MD [address] [place] [address] PCP - General Specialist 08/12/19 documented as of this encounter
--- OUTSIDE RECORDS SUMMARY | 2025-04-01 15:50 | XMS_ITS | Encounter Summary ---
Author Organization [facility] Address [address] [place] [address] Care Team Providers Care Neurosurgery Spine Physician Name Role Phone Areli Gurrola MD Primary Care Provider Encounter Details Date Type Department Care Team (Late st Contact Info) Description 04/14/2002 Outpatient Historical [facility] [address] [place] [address] Miguelangel Mas, NO ADDRESS ON FILE JOINT PAIN-ANKLE (Primary Dx) Social History Tobacco Use Types Packs/Day Years Used Date Smoking Tobacco: Never Assessed Comments Unknown Sex and Gender Information Value Date Recorded Sex Assigned at Not on file Legal Sex Female 3:40 AM STORAGE RECEIPT POSTER Gender Identity Not on file Sexual [...] documented as of this encounter Care Teams Neurosurgery Spine Physician Relationship Specialty Start Date End Date Areli Gurrola MD [address] [place] [address] PCP - General Specialist 08/12/19 documented as of this encounter
--- OUTSIDE RECORDS SUMMARY | 2025-04-01 15:50 | XMS_ITS | Encounter Summary ---
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
--- OUTSIDE RECORDS SUMMARY | 2025-04-01 15:50 | XMS_ITS | Encounter Summary ---
Author Organization [facility] Address [address] [place] [address] Care Team Providers Care Showroom Sales Assistant Name Role Phone Areli Gurrola MD Primary Care Provider Encounter Details Date Type Department Care Team (Latest Contact Info) Description 07/19/1998 Outpatient Historical [facility] Charli Perez MD NO ADDRESS ON FILE Scar condition and fibrosis of skin (Primary Dx) Social History Tobacco Use Types Packs/Day Years Used Date Smoking Tobacco: Never Assessed Comments Unknown Sex and Gender Information Value Date Recorded Sex Assigned at Not on file Legal Sex Female 3:40 AM OVERCOILER Gender Identity Not on file Sexual Orientation [...] as of this encounter Care Teams Showroom Sales Assistant Relationship Specialty Start Date End Date Areli Gurrola MD [address] [place] [address] PCP - General Specialist 08/12/19 documented as of this encounter
--- OUTSIDE RECORDS SUMMARY | 2025-04-01 15:50 | XMS_ITS | Encounter Summary ---
Author Organization [facility] Address [address] [place] [address] Care Team Providers Care Hot Plate Plywood Press Operator Name Role Phone Areli Gurrola MD Primary Care Provider Encounter Details Date Type Department Care Team (Latest Contact Info) Description 10/14/2002 Outpatient Historical [facility] [address] [place] [address] Trell York MD [address] [place] [phone] ACUTE URI NOS (Primary Dx); COUGH Social History Tobacco Use Types Packs/Day Years Used Date Smoking Tobacco: Never Assessed Comments Unknown Sex and Gender Information Value Date Recorded Sex Assigned at Not on file Legal Sex Female 3:40 AM WRECKER DRIVER Gender Identity Not on file Sexual [...] as of this encounter Care Teams Hot Plate Plywood Press Operator Relationship Specialty Start Date End Date Areli Gurrola MD [address] [facility] [place] [address] PCP - General Specialist 08/12/19 documented as of this encounter
--- OUTSIDE RECORDS SUMMARY | 2025-04-01 15:50 | XMS_ITS | Encounter Summary ---
Author Organization [facility] Address [address] [place] [address] Care Team Providers Care Awning Hanger Name Role Phone Areli Gurrola MD Primary Care Provider Encounter Details Date Type Department Care Team (Latest Contact Info) Description 04/21/2003 Outpatient [facility] [address] [place] [address] Gordon Cabral MD NO ADDRESS ON FILE URIN TRACT INFECTION NOS (Primary Dx) Social History Tobacco Use Types Packs/Day Years Used Date Smoking Tobacco: Never Assessed Comments Unknown Sex and Gender Information Value Date Recorded Sex Assigned at Not on file Legal Sex Female 3:40 AM RECORD TABULATING CLERK Gender Identity Not on file Sexual [...] documented as of this encounter Care Teams Awning Hanger Relationship Specialty Start Date End Date Areli Gurrola MD [address] [facility] [place] [address] PCP - General Specialist 08/12/19 documented as of this encounter
--- OUTSIDE RECORDS SUMMARY | 2025-04-01 15:50 | XMS_ITS | Encounter Summary ---
Author Organization [facility] Address [address] [place] [address] Care Team Providers Care Wire Border Assembler Name Role Phone Areli Gurrola MD Primary Care Provider Encounter Details Date Type Department Care Team (Late st Contact Info) Description 04/14/2002 Outpatient Historical [facility] [address] [place] [address] Miguelangel Mas, NO ADDRESS ON FILE SPRAIN OF ANKLE NOS (Primary Dx) Social History Tobacco Use Types Packs/Day Years Used Date Smoking Tobacco: Never Assessed Comments Unknown Sex and Gender Information Value Date Recorded Sex Assigned at Not on file Legal Sex Female 3:40 AM PUBLIC ADDRESS SYSTEM OPERATOR Gender Identity Not on file [...] as of this encounter Care Teams Wire Border Assembler Relationship Specialty Start Date End Date Areli Gurrola MD [address] [facility] [place] [address] PCP - General Specialist 08/12/19 documented as of this encounter
--- OUTSIDE RECORDS SUMMARY | 2025-04-01 15:50 | XMS_ITS | Encounter Summary ---
Author Organization [facility] Address [address] [place] [address] Care Team Providers Care Fender Mechanic Apprentice Name Role Phone Areli Gurrola MD Primary Care Provider Encounter Details Date Type Department Care Team (Latest Contact Info) Description 07/30/2002 Outpatient Historical [facility] [address] [place] [address] Trell York MD [address] [place] [phone] INSOMNIA NEC (Primary Dx); NEUROTIC DEPRESSION; LUMBAGO Social History Tobacco Use Types Packs/Day Years Used Date Smoking Tobacco: Never Assessed Comments Unknown Sex and Gender Information Value Date Recorded Sex Assigned at Not on file Legal Sex Female 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
--- OUTSIDE RECORDS SUMMARY | 2025-04-01 15:50 | XMS_ITS | Encounter Summary ---
Author Organization [facility] Address [address] [place] [address] Care Team Providers Care Tile Layer Drainage Name Role Phone Areli Gurrola MD Primary Care Provider Encounter Details Date Type Department Care Team (Latest Contact Info) Description 07/26/1998 Outpatient Historical [facility] Charli Perez MD NO ADDRESS ON FILE Other specified aftercare following surgery (Primary Dx) Social History Tobacco Use Types Packs/Day Years Used Date Smoking Tobacco: Never Assessed Comments Unknown Sex and Gender Information Value Date Recorded Sex Assigned at Not on file Legal Sex Female 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
--- OUTSIDE RECORDS SUMMARY | 2025-04-01 15:50 | XMS_ITS | Encounter Summary ---
Author Organization [facility] Address [address] [place] [address] Care Team Providers Care Barrel Burner Name Role Phone Areli Gurrola MD Primary Care Provider Encounter Details Date Type Department Care Team (Latest Contact Info) Description 02/02/1999 Outpatient Historical [facility] [place] [place] [address] Alumno, Gibran Lynn MD [address] [place] [address] Sprain and strain of other specified sites of shoulder and upper arm (Primary Dx); Hx musculoskletl dis NEC Social History Tobacco Use Types Packs/Day Years Used Date Smoking Tobacco: Never Assessed Comments Unknown Sex and Gender Information Value Date Recorded Sex Assigned at Not on file Legal Sex Female 3:40 AM TOBACCO SCRAP SIFTER Gender Identity Not on file Sexual Orientation [...] as of this encounter Care Teams Barrel Burner Relationship Specialty Start Date End Date Areli Gurrola MD [address] [place] [address] PCP - General Specialist 08/12/19 documented as of this encounter
--- OUTSIDE RECORDS SUMMARY | 2025-04-01 15:50 | XMS_ITS | Encounter Summary ---
Author Organization [facility] Address [address] [place] [address] Care Team Providers Care Core Rescuer Name Role Phone Areli Gurrola MD Primary Care Provider Encounter Details Date Type Department Care Team (Latest Contact Info) Description 10/21/2001 Outpatient Historical [facility] [address] [place] [address] Trell York MD [address] [place] [phone] NEUROTIC DEPRESSION (Primary Dx); LUMBAGO; ACUTE LARYNGOTRACH W OBSTR Social History Tobacco Use Types Packs/Day Years Used Date Smoking Tobacco: Never Assessed Comments Unknown Sex and Gender Information Value Date Recorded Sex Assigned at Not on file Legal Sex Female 3: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
--- OUTSIDE RECORDS SUMMARY | 2025-04-01 15:50 | XMS_ITS | Encounter Summary ---
Author Organization [facility] Address [address] [place] [address] Care Team Providers Care Tax Technician Name Role Phone Areli Gurrola MD Primary Care Provider Encounter Details Date Type Department Care Team (Latest Contact Info) Description 02/14/[address] 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
--- OUTSIDE RECORDS SUMMARY | 2025-04-01 15:50 | XMS_ITS | Encounter Summary ---
Author Organization [facility] Address [address] [place] [address] Care Team Providers Care Plating Engineer Name Role Phone Areli Gurrola MD Primary Care Provider Encounter Details Date Type Department Care Team (Latest Contact Info) Description 01/09/2002 Outpatient Historical [facility] [address] [place] [address] Trell York MD [address] [place] [phone] HEADACHE (Primary Dx); CERVICALGIA Social History Tobacco Use Types Packs/Day Years Used Date Smoking Tobacco: Never Assessed Comments Unknown Sex and Gender Information Value Date Recorded Sex Assigned at Not on file Legal Sex Female 3:40 AM UNIX ADMINISTRATOR Gender Identity Not on file Sexual [...] documented as of this encounter Care Teams Plating Engineer Relationship Specialty Start Date End Date Areli Gurrola MD [address] [place] [address] PCP - General Specialist 08/12/19 documented as of this encounter
--- OUTSIDE RECORDS SUMMARY | 2025-04-01 15:50 | XMS_ITS | Encounter Summary ---
Author Organization [facility] Address [address] [place] [address] Care Team Providers Care Card Mounter Name Role Phone Areli Gurrola MD Primary Care Provider Encounter Details Date Type Department Care Team (Latest Contact Info) Description 02/05/2003 Outpatient [facility] [address] [place] [address] Gordon Cabral MD NO ADDRESS ON FILE SURGERY FOLLOWUP, UNSPEC (Primary Dx) Social History Tobacco Use Types Packs/Day Years Used Date Smoking Tobacco: Never Assessed Comments Unknown Sex and Gender Information Value Date Recorded Sex Assigned at Not on file Legal Sex Female 3:40 AM MECHANICAL ENGINEERING INTERN Gender Identity Not on file Sexual [...] as of this encounter Care Teams Card Mounter Relationship Specialty Start Date End Date Areli Gurrola MD [address] [facility] [place] [address] PCP - General Specialist 08/12/19 documented as of this encounter
--- OUTSIDE RECORDS SUMMARY | 2025-04-01 15:50 | XMS_ITS | Encounter Summary ---
Author Organization [facility] Address [address] [place] [address] Care Team Providers Care Traffic Safety Administrator Name Role Phone Areli Gurrola MD Primary Care Provider Encounter Details Date Type Department Care Team (Latest Contact Info) Description 12/18/2002 Outpatient Historical [facility] [id number] [place] [address] Gordon Cabral MD NO ADDRESS ON FILE PREOP EXAM OTHER SPECIFIED (Primary Dx) Social History Tobacco Use Types Packs/Day Years Used Date Smoking Tobacco: Never Assessed Comments Unknown Sex and Gender Information Value Date Recorded Sex Assigned at Not on file Legal Sex Female 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
--- OUTSIDE RECORDS SUMMARY | 2025-04-01 15:50 | XMS_ITS | Encounter Summary ---
Author Organization [facility] Address [address] [place] [address] Care Team Providers Care Senior Firmware Engineer Name Role Phone Areli Gurrola MD Primary Care Provider Encounter Details Date Type Department Care Team (Latest Contact Info) Description 10/01/2002 Outpatient Historical [facility] [address] [place] [address] Trell York MD [address] [place] [phone] ACUTE SINUSITIS NOS (Primary Dx) Social History Tobacco Use Types Packs/Day Years Used Date Smoking Tobacco: Never Assessed Comments Unknown Sex and Gender Information Value Date Recorded Sex Assigned at Not on file Legal Sex Female 3:40 AM MINING ANALYST Gender Identity Not on file Sexual [...] as of this encounter Care Teams Senior Firmware Engineer Relationship Specialty Start Date End Date Areli Gurrola MD [address] [place] [address] PCP - General Specialist 08/12/19 documented as of this encounter
--- OUTSIDE RECORDS SUMMARY | 2025-04-01 15:50 | XMS_ITS | Encounter Summary ---
Author Organization [facility] Address [address] [place] [address] Care Team Providers Care Crester Name Role Phone Areli Gurrola MD Primary Care Provider Encounter Details Date Type Department Care Team (Latest Contact Info) Description 08/25/2002 Outpatient Historical [facility] [address] [place] [address] Trell York MD [address] [place] [phone] INSOMNIA NEC (Primary Dx); OTHER MALAISE AND FATIGUE; NEUROTIC DEPRESSION; CERVICALGIA Social History Tobacco Use Types Packs/Day Years Used Date Smoking Tobacco: Never Assessed Comments Unknown Sex and Gender Information Value Date Recorded Sex Assigned at Not on file Legal Sex Female 3:40 AM HEART DOCTOR Gender Identity Not on file Sexual [...] documented as of this encounter Care Teams Crester Relationship Specialty Start Date End Date Areli Gurrola MD [address] [facility] [place] [address] PCP - General Specialist 08/12/19 documented as of this encounter
--- OUTSIDE RECORDS SUMMARY | 2025-04-01 15:50 | XMS_ITS | Encounter Summary ---
Author Organization [facility] Address [address] [place] [address] Care Team Providers Care Paper Tube Cutter Name Role Phone Areli Gurrola MD Primary Care Provider Encounter Details Date Type Department Care Team (Late st Contact Info) Description 10/27/2002 Emergency [facility] Emergency Department [address] [place] [address] Cira Archibald MD NO ADDRESS ON FILE FEMALE GENITAL SYMPTOMS NOS (Primary Dx) Social History Tobacco Use Types Packs/Day Years Used Date Smoking Tobacco: Never Assessed Comments Unknown Sex and Gender Information Value Date Recorded Sex Assigned at Not on file Legal Sex Female 3:40 AM UNIT MANAGER CONVENIENCE STORES Gender Identity Not on file Sexual Orientation [...] as of this encounter Care Teams Paper Tube Cutter Relationship Specialty Start Date End Date Areli Gurrola MD [address] [place] [address] PCP - General Specialist 08/12/19 documented as of this encounter
--- OUTSIDE RECORDS SUMMARY | 2025-04-01 15:50 | XMS_ITS | Encounter Summary ---
Author Organization [facility] Address [address] [place] [address] Care Team Providers Care Soccer Player Name Role Phone Areli Gurrola MD [...] Legal Sex Female 3:40 AM SUBSTANCE ABUSE COUNSELOR Gender Identity Not on file Sexual [...] documented as of this encounter Care Teams Soccer Player Relationship Specialty Start Date End Date Areli Gurrola MD [address] [place] [address] PCP - General Specialist 08/12/19 documented as of this encounter
--- OUTSIDE RECORDS SUMMARY | 2025-04-01 15:50 | XMS_ITS | Encounter Summary ---
Author Organization [facility] Address [address] [place] [address] Care Team Providers Care Visiting Nurse Name Role Phone Areli Gurrola MD Primary Care Provider Encounter Details Date Type Department Care Team (Latest Contact Info) Description 07/05/1998 Outpatient Historical [facility] Charli Perez MD NO ADDRESS ON FILE Other specified aftercare following surgery (Primary Dx) Social History Tobacco Use Types Packs/Day Years Used Date Smoking Tobacco: Never Assessed Comments Unknown Sex and Gender Information Value Date Recorded Sex Assigned at Not on file Legal Sex Female 3:40 AM QUALITY CONTROL DIRECTOR Gender Identity Not on file Sexual [...] documented as of this encounter Care Teams Visiting Nurse Relationship Specialty Start Date End Date Areli Gurrola MD [address] [place] [address] PCP - General Specialist 08/12/19 documented as of this encounter
--- OUTSIDE RECORDS SUMMARY | 2025-04-01 15:50 | XMS_ITS | Encounter Summary ---
Author Organization [facility] Address [address] [place] [address] Care Team Providers Care Bellmaker Name Role Phone Areli Gurrola MD Primary Care Provider Encounter Details Date Type Department Care Team (Latest Contact Info) Description 10/03/2002 Outpatient [facility] [address] [place] [address] Gordon Cabral MD NO ADDRESS ON FILE METRORRHAGIA (Primary Dx) Social History Tobacco Use Types Packs/Day Years Used Date Smoking Tobacco: Never Assessed Comments Unknown Sex and Gender Information Value Date Recorded Sex Assigned at Not on file Legal Sex Female 3:40 AM SECRETARIAL STENOGRAPHER Gender Identity Not on file Sexual Orientation Not on file documented as of this encounter Plan of Treatment Not on file documented as of this encounter Visit Diagnoses Diagnosis Metrorrhagia- Primary documented in this encounter Additional Health Concerns Infection Onset Date Last Indicated Resolved Time R/O COVID-19 01/31/2020 01/31/2020 02/02/2020 10:3 2 AM CDT documented as of this encounter Care Teams Bellmaker Relationship Specialty Start Date End Date Areli Gurrola MD [address] [place] [address] PCP - General Specialist 08/12/19 documented as of this encounter
--- OUTSIDE RECORDS SUMMARY | 2025-04-01 15:50 | XMS_ITS | Encounter Summary ---
Author Organization [facility] Address [address] [place] [address] Care Team Providers Care Charger Tester Name Role Phone Areli Gurrola MD Primary Care Provider Encounter Details Date Type Department Care Team (Latest Contact Info) Description 04/07/2002 Outpatient Historical [facility] [address] [place] [address] Trell York MD [address] [place] [phone] URTICARIA NOS (Primary Dx) Social History Tobacco Use Types Packs/Day Years Used Date Smoking Tobacco: Never Assessed Comments Unknown Sex and Gender Information Value Date Recorded Sex Assigned at Not on file Legal 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 Female 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 Gender Identity Not on file Sexual Orientation Not on file documented as of this encounter Plan of Treatment Not on file documented as of this encounter Visit Diagnoses Diagnosis Urticaria, unspecified- Primary documented in this encounter Additional Health Concerns Infection Onset Date Last Indicated Resolved Time R/O COVID-19 01/31/2020 01/31/2020 02/02/2020 10:3 2 AM CDT documented as of this encounter Care Teams Charger Tester Relationship Specialty Start Date End Date Areli Gurrola MD [address] [facility] [place] [address] PCP - General Specialist 08/12/19 documented as of this encounter
--- OUTSIDE RECORDS SUMMARY | 2025-04-01 15:50 | XMS_ITS | Encounter Summary ---
Author Organization [facility] Address [address] [place] [address] Care Team Providers Care Environmental Engineering Intern Name Role Phone Areli Gurrola MD Primary Care Provider Encounter Details Date Type Department Care Team (Latest Contact Info) Description 01/20/2002 Outpatient Historical [facility] [address] [place] [address] Trell York MD [address] [place] [address] NEUROTIC DEPRESSION (Primary Dx); ANXIETY STATE NOS; CERVICALGIA; LUMBAGO Social History Tobacco Use Types Packs/Day Years Used Date Smoking Tobacco: Never Assessed Comments Unknown Sex and Gender Information Value Date Recorded Sex Assigned at Not on file Legal Sex Female 3:40 AM FIELD ADJUSTER Gender Identity Not on file Sexual [...] as of this encounter Care Teams Environmental Engineering Intern Relationship Specialty Start Date End Date Areli Gurrola MD [address] [place] [address] PCP - General Specialist 08/12/19 documented as of this encounter
--- OUTSIDE RECORDS SUMMARY | 2025-04-01 15:50 | XMS_ITS | Encounter Summary ---
Author Organization [facility] Address [address] [place] [address] Care Team Providers Care Cooking Appliance Repair Technician Name Role Phone Areli Gurrola MD Primary Care Provider Encounter Details Date Type Department Care Team (Latest Contact Info) Description 04/10/2002 Outpatient Historical [facility] Endoscopy Andrés [address] [facility] [address] [place] [address] Gildardo Ace MD [address] [place] [phone] ABDOMINAL PAIN EPIGASTRIC (Primary Dx) Social History Tobacco Use Types Packs/Day Years Used Date Smoking Tobacco: Never Assessed Comments Unknown Sex and Gender Information Value Date Recorded Sex Assigned at Not on file Legal Sex Female 3:40 AM AUTO CLAIM REPRESENTATIVE Gender Identity Not on file Sexual [...] documented as of this encounter Care Teams Cooking Appliance Repair Technician Relationship Specialty Start Date End Date Areli Gurrola MD [address] [facility] [place] [address] PCP - General Specialist 08/12/19 documented as of this encounter
--- OUTSIDE RECORDS SUMMARY | 2025-04-01 15:50 | XMS_ITS | Encounter Summary ---
Author Organization [facility] Address [address] [place] [address] Care Team Providers Care Price Changer Name Role Phone Areli Gurrola MD Primary Care Provider Encounter Details Date Type Department Care Team (Latest Contact Info) Description 10/20/2002 Outpatient Historical [facility] [place] [address] [place] [address] Gordon Cabral MD NO ADDRESS ON FILE PREOP EXAM OTHER SPECIFIED (Primary Dx) Social History Tobacco Use Types Packs/Day Years Used Date Smoking Tobacco: Never Assessed Comments Unknown Sex and Gender Information Value Date Recorded Sex Assigned at Not on file Legal Sex Female 3:40 AM DESK EDITOR Gender Identity Not on file Sexual [...] documented as of this encounter Care Teams Price Changer Relationship Specialty Start Date End Date Areli Gurrola MD [address] [place] [address] PCP - General Specialist 08/12/19 documented as of this encounter
--- OUTSIDE RECORDS SUMMARY | 2025-04-01 15:50 | XMS_ITS | Encounter Summary ---
Author Organization [facility] Address [address] [place] [address] Care Team Providers Care Counter Dish Carrier Name Role Phone Areli Gurrola MD Primary Care Provider Encounter Details Date Type Department Care Team (Latest Contact Info) Description 11/25/2002 [facility] [address] [place] [address] Gordon Cabral MD NO ADDRESS ON FILE DYSMENORRHEA (Primary Dx) Social History Tobacco Use Types Packs/Day Years Used Date Smoking Tobacco: Never Assessed Comments Unknown Sex and Gender Information Value Date Recorded Sex Assigned at Not on file Legal Sex Female 3:40 AM VP LEGAL AFFAIRS Gender Identity Not on file Sexual Orientation Not on file documented as of this encounter Plan of Treatment Not on file documented as of this encounter Visit Diagnoses Diagnosis Dysmenorrhea- Primary documented in this encounter Additional Health Concerns Infection Onset Date Last Indicated Resolved Time R/O COVID-19 01/31/2020 01/31/2020 02/02/2020 10:3 2 AM CDT documented as of this encounter Care Teams Counter Dish Carrier Relationship Specialty Start Date End Date Areli Gurrola MD [address] [facility] [place] [address] PCP - General Specialist 08/12/19 documented as of this encounter
--- OUTSIDE RECORDS SUMMARY | 2025-04-01 15:50 | XMS_ITS | Encounter Summary ---
Author Organization [facility] Address [address] [place] [address] Care Team Providers Care Designer And Patternmaker Name Role Phone Areli Gurrola MD Primary Care Provider Encounter Details Date Type Department Care Team (Latest Contact Info) Description 12/18/2002 Outpatient [facility] [address] [place] [address] Gordon Cabral MD NO ADDRESS ON FILE PREOP EXAM OTHER SPECIFIED (Primary Dx); Excessive menstruation; FEMALE GENITAL SYMPTOMS NOS Social History Tobacco Use Types Packs/Day Years Used Date Smoking Tobacco: Never Assessed Comments Unknown Sex and Gender Information Value Date Recorded Sex Assigned at Not on file Legal Sex Female 3:40 AM OIL FIELD OPERATOR Gender Identity Not on file Sexual [...] documented as of this encounter Care Teams Designer And Patternmaker Relationship Specialty Start Date End Date Areli Gurrola MD [address] [place] [address] PCP - General Specialist 08/12/19 documented as of this encounter
--- OUTSIDE RECORDS SUMMARY | 2025-04-01 15:50 | XMS_ITS | Encounter Summary ---
Author Organization [facility] Address [address] [place] [address] Care Team Providers Care Rolled Seat Trimmer Name Role Phone Areli Gurrola MD Primary Care Provider Encounter Details Date Type Department Care Team (Latest Contact Info) Description 02/14/1999 Outpatient Historical [facility] [place] [place] [address] Alumno, Gibran Lynn MD [address] [place] [address] Sprain and strain of other specified sites of shoulder and upper arm (Primary Dx) Social History Tobacco Use Types Packs/Day Years Used Date Smoking Tobacco: Never Assessed Comments Unknown Sex and Gender Information Value Date Recorded Sex Assigned at Not on file Legal Sex Female 3:40 AM CLIENT EVALUATOR Gender Identity Not on file Sexual Orientation [...] documented as of this encounter Care Teams Rolled Seat Trimmer Relationship Specialty Start Date End Date Areli Gurrola MD [address] [place] [address] PCP - General Specialist 08/12/19 documented as of this encounter
--- OUTSIDE RECORDS SUMMARY | 2025-04-01 15:50 | XMS_ITS | Encounter Summary ---
Author Organization [facility] Address [address] [place] [address] Care Team Providers Care Insulation Foreman Name Role Phone Areli Gurrola MD Primary Care Provider Encounter Details Date Type Department Care Team (Late st Contact Info) Description 10/30/2002 Emergency [facility] Emergency Department [address] [place] [address] Tomás Jade MD NO ADDRESS ON FILE FEMALE GENITAL SYMPTOMS NOS (Primary Dx) Social History Tobacco Use Types Packs/Day Years Used Date Smoking Tobacco: Never Assessed Comments Unknown Sex and Gender Information Value Date Recorded Sex Assigned at Not on file Legal Sex Female 3:40 AM INSIDE HORTICULTURAL SPECIALTY GROWER Gender Identity Not on file Sexual Orientation [...] documented as of this encounter Care Teams Insulation Foreman Relationship Specialty Start Date End Date Areli Gurrola MD [address] [place] [address] PCP - General Specialist 08/12/19 documented as of this encounter
--- OUTSIDE RECORDS SUMMARY | 2025-04-01 15:50 | XMS_ITS | Encounter Summary ---
Author Organization [facility] Address [address] [place] [address] Care Team Providers Care Demo Specialist Name Role Phone Areli Gurrola MD Primary Care Provider Encounter Details Date Type Department Care Team (Latest Contact Info) Description 07/09/2002 Outpatient Historical [facility] [address] [place] [address] Trell York MD [address] [place] [phone] OTHER MALAISE AND FATIGUE (Primary Dx); CERVICALGIA Social History Tobacco Use Types Packs/Day Years Used Date Smoking Tobacco: Never Assessed Comments Unknown Sex and Gender Information Value Date Recorded Sex Assigned at Not on file Legal Sex Female 3:40 AM ABSTRACT CLERK Gender Identity Not on file Sexual [...] documented as of this encounter Care Teams Demo Specialist Relationship Specialty Start Date End Date Areli Gurrola MD [address] [facility] [address] PCP - General Specialist 08/12/19 documented as of this encounter
--- OUTSIDE RECORDS SUMMARY | 2025-04-01 15:50 | XMS_ITS | Encounter Summary ---
Author Organization [employer] [facility] Address [address] [place] [address] Care Team Providers Care Education Analyst Name Role Phone Areli Gurrola MD Primary Care Provider Encounter Details Date Type Department Care Team (Latest Contact Info) Description 10/03/2002 Outpatient [facility] [address] [place] [address] Gordon Cabral MD NO ADDRESS ON FILE MENSTRUAL DISORDER NEC (Primary Dx) Social History Tobacco Use Types Packs/Day Years Used Date Smoking Tobacco: Never Assessed Comments Unknown Sex and Gender Information Value Date Recorded Sex Assigned at Not on file Legal Sex Female 3:40 AM PECAN CLEANER Gender Identity Not on file Sexual [...] as of this encounter Care Teams Education Analyst Relationship Specialty Start Date End Date Areli Gurrola MD [address] [facility] [place] [address] PCP - General Specialist 08/12/19 documented as of this encounter
--- OUTSIDE RECORDS SUMMARY | 2025-04-01 15:50 | XMS_ITS | Encounter Summary ---
Author Organization [facility] Address [address] [place] [address] Care Team Providers Care Care Manager Name Role Phone Areli Gurrola MD Primary Care Provider Encounter Details Date Type Department Care Team (Latest Contact Info) Description 10/31/2002 Outpatient Historical [facility] [address] [place] [address] Gordon Cabral MD NO ADDRESS ON FILE SURGERY FOLLOWUP, UNSPEC (Primary Dx) Social History Tobacco Use Types Packs/Day Years Used Date Smoking Tobacco: Never Assessed Comments Unknown Sex and Gender Information Value Date Recorded Sex Assigned at Not on file Legal Sex Female 3:40 AM REPRESENTATIVE PHLEBOTOMY SERVICES Gender Identity Not on file Sexual [...] documented as of this encounter Care Teams Care Manager Relationship Specialty Start Date End Date Areli Gurrola MD [address] [facility] [place] [address] PCP - General Specialist 08/12/19 documented as of this encounter
--- OUTSIDE RECORDS SUMMARY | 2025-04-01 15:50 | XMS_ITS | Encounter Summary ---
Author Organization [facility] Address [address] [place] [address] Care Team Providers Care Oil And Gas Drafter Name Role Phone Areli Gurrola MD Primary Care Provider Encounter Details Date Type Department Care Team (Latest Contact Info) Description 08/20/2001 Outpatient Historical [facility] [address] [place] [address] Trell York MD [address] [place] [phone] ACUTE PHARYNGITIS (Primary Dx) Social History Tobacco Use Types Packs/Day Years Used Date Smoking Tobacco: Never Assessed Comments Unknown Sex and Gender Information Value Date Recorded Sex Assigned at Not on file Legal Sex Female 3:40 AM FABRIC WORKER SUPERVISOR Gender Identity Not on file Sexual [...] as of this encounter Care Teams Oil And Gas Drafter Relationship Specialty Start Date End Date Areli Gurrola MD [address] [facility] [place] [phone] PCP - General Specialist 08/12/19 documented as of this encounter
--- OUTSIDE RECORDS SUMMARY | 2025-04-01 15:50 | XMS_ITS | Encounter Summary ---
Author Organization [facility] Address [address] [place] [address] Care Team Providers Care Dialysis Clinical Manager Name Role Phone Areli Gurrola MD Primary Care Provider Encounter Details Date Type Department Care Team (Latest Contact Info) Description 07/16/[address] 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
--- OUTSIDE RECORDS SUMMARY | 2025-04-01 15:50 | XMS_ITS | Encounter Summary ---
Author Organization [facility] Address [address] [place] [address] Care Team Providers Care Cost And Sales Record Supervisor Name Role Phone Areli Gurrola MD Primary Care Provider Encounter Details Date Type Department Care Team (Latest Contact Info) Description 10/09/2002 Outpatient Historical [facility] [place] [address] [place] [address] Gordon Cabral MD NO ADDRESS ON FILE Excessive menstruation (Primary Dx) Social History Tobacco Use Types Packs/Day Years Used Date Smoking Tobacco: Never Assessed Comments Unknown Sex and Gender Information Value Date Recorded Sex Assigned at Not on file 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
--- OUTSIDE RECORDS SUMMARY | 2025-04-01 15:50 | XMS_ITS | Encounter Summary ---
Author Organization [facility] Address [address] [place] [address] Care Team Providers Care Case Maker Name Role Phone Areli Gurrola MD Primary Care Provider Encounter Details Date Type Department Care Team (Late st Contact Info) Description 06/27/2001 Outpatient Historical [facility] Gen Spec Surg [address] [address] Renan Martinez MD [address] [place] [address] CHOLELITHIASIS NOS (Primary Dx); SURGERY FOLLOWUP, UNSPEC Social History Tobacco Use Types Packs/Day Years Used Date Smoking Tobacco: Never Assessed Comments Unknown Sex and Gender Information Value Date Recorded Sex Assigned at Not on file 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
--- OUTSIDE RECORDS SUMMARY | 2025-04-01 15:50 | XMS_ITS | Encounter Summary ---
Author Organization [facility] Address [address] [place] [address] Care Team Providers Care Leasing Director Name Role Phone Areli Gurrola MD Primary Care Provider Encounter Details Date Type Department Care Team (Latest Contact Info) Description 12/04/2001 Outpatient [facility] [address] [place] [address] Trell York MD [address] [place] [phone] ACUTE BRONCHITIS (Primary Dx); COUGH Social History Tobacco Use Types Packs/Day Years Used Date Smoking Tobacco: Never Assessed Comments Unknown Sex and Gender Information Value Date Recorded Sex Assigned at Not on file 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 [place] [address] PCP - General Specialist 08/12/19 documented as of this encounter
--- OUTSIDE RECORDS SUMMARY | 2025-04-01 15:50 | XMS_ITS | Encounter Summary ---
Author Organization [facility] Address [address] [place] [address] Care Team Providers Care Behavioral Assistant Name Role Phone Areli Gurrola MD Primary Care Provider Encounter Details Date Type Department Care Team (Latest Contact Info) Description 03/09/1999 Outpatient [facility] [place] [address] [place] [address] [place], Gibran Lynn MD [address] [place] [address] Sprain and strain of unspecified site of shoulder and upper arm (Primary Dx); Backache, unspecified Social History Tobacco Use Types Packs/Day Years Used Date Smoking Tobacco: Never Assessed Comments Unknown Sex and Gender Information Value Date Recorded Sex Assigned at Not on file 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
--- OUTSIDE RECORDS SUMMARY | 2025-04-01 15:50 | XMS_ITS | Encounter Summary ---
Author Organization [facility] Address [address] 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
--- OUTSIDE RECORDS SUMMARY | 2025-04-01 15:50 | XMS_ITS | Encounter Summary ---
Author Organization [facility] Address [address] [place] [address] Care Team Providers Care Medical Sonographer Name Role Phone Areli Gurrola MD Primary Care Provider Encounter Details Date Type Department Care Team (Latest Contact Info) Description 11/20/2001 Outpatient Historical [facility] [address] [place] [address] Trell York MD [address] [place] [phone] LUMBAGO (Primary Dx); SEBACEOUS CYST Social History Tobacco Use Types Packs/Day Years Used Date Smoking Tobacco: Never Assessed Comments Unknown Sex and Gender Information Value Date Recorded Sex Assigned at Not on file 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
--- OUTSIDE RECORDS SUMMARY | 2025-04-01 15:51 | XMS_ITS | Encounter Summary ---
Author Organization [facility] Address [address] [place] [address] Care Team Providers Care Plastic Battery Assembler Name Role Phone Unavailable Primary Care Provider Unavailabl e Reason for Visit * Reason Onset Date Comments Referral 03/26/2025 Encounter Details Date Type Department Care Team (Late st Contact Info) Description 03/26/2025 Patient Outreach [facility] [address] [place] [address] Rico Banerjee Referral Social History Tobacco Use Types Packs/Day Years Used Date Smoking Tobacco: Former Cigarettes Smokeless Tobacco: Never Comments:4 cigarettes daily [...] worry about transportation for future doctor visits, pick up man medication, etc.? 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 I met with Kay on the phone where she was unavailable at this time. I was unable to make contact and the voicemail box was full at this time. Another attempt at contact will be made soon. Rico Banerjee Community Health Worker II [facility] [address] [place] [address] HARDENER documented in this encounter Plan of Treatment Upcoming Encounters Date Type Department Care Team (Late st Contact Info) Description 06/16/2025 8:30 AM CDT Office Visit [facility] [place] [address] [place] [address] Maritza Fournier PA-C [address] [place] [phone] documented as of this encounter Visit Diagnoses Not on filedocumented in this encounter
--- OUTSIDE RECORDS SUMMARY | 2025-04-01 15:51 | XMS_ITS | Encounter Summary ---
Author Organization [facility] Address [address] [place] [address] Care Team Providers Care Assisted Living Director Name Role Phone Areli Gurrola MD Primary Care Provider Encounter Details Date Type Department Care Team (Latest Contact Info) Description 03/20/2002 Outpatient Historical [facility] [address] [place] [address] Trell York MD [address] [place] [phone] ESOPHAGITIS, UNSPECIFIED (Primary Dx); CERVICALGIA; UNSPEC CONSTIPATION Social History Tobacco Use Types Packs/Day Years Used Date Smoking Tobacco: Never Assessed Comments Unknown Sex and Gender Information Value Date Recorded Sex Assigned at Not on file Legal 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
[2025-04-01 16:08] VITALS: BP 158/74; PULSE 88; TEMP 36.9; O2SAT 100
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
[2025-04-01 16:38] VITALS: BP 168/67; O2SAT 100
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
[2025-04-01] MEDS: HYDROcodone-acetaminophen 10-325 mg Tablet 1 TAB PO (16:56)
[2025-04-01 18:53] VITALS: PULSE 70; O2SAT 100
[2025-04-01] MEDS: HYDROcodone-acetaminophen 5-325 mg Tablet 1 TAB PO (18:56)
[2025-04-01 19:09] VITALS: BP 153/75; PULSE 71; O2SAT 100
== END 2025-04-01 19:10 | disposition home or self-care (01) ==
PROVIDERS: Emergency Provider Emergency Medicine; PCP Physician Assistant
DX: S82.831A Other fracture of upper and lower end of right fibula, initial encounter for closed fracture (principal); X58.XXXA Exposure to other specified factors, initial encounter; F17.290 Nicotine dependence, other tobacco product, uncomplicated; F17.210 Nicotine dependence, cigarettes, uncomplicated; I50.9 Heart failure, unspecified; E11.40 Type 2 diabetes mellitus with diabetic neuropathy, unspecified
CPT/HCPCS: 73700; 99284; J9999

== ENCOUNTER 2025-04-03 17:43 | Emergency (ER) | payer MEDICARE, MEDICAID, SELFPAY ==
--- OUTSIDE RECORDS SUMMARY | 2024-02-02 03:00 | XMS_ITS ---
Author Organization [facility] Address [address] [place] [address] Care Team Providers Care Branch Manager Name Role Phone Joseph Lewis MD Primary Care Provider Zane Joiner Unavailable [phone] ELROY BOOTHE Unavailable Unavailable Migration, Provider Unavailable Unavailable REASON FOR VISIT EMR-Luke Encounters Encounter Location Date Provider Diagnosis Migrated_Facility 0 0 02/02/2024 Provider Migration Plan Of Treatment Medication Medication Name Sig Start Date Stop Date Notes Zubsolv 5.7-1.4 mg sublingual tablet, sublingual 1 Tablet Twice a Day 02/20/2019 03/22/2019 *Reorder from [facility] for eRx and Interaction Alerts* Progress Notes * Kay GAMBOA MDOB:1965 (59 yo F)Acc No.[id number]:02/02/2024 Patient: Elva Kay RODRIGUEZ :1965 A ge:58 Y S ex:Female Address:[address], [address] [place] [address] * Refills Stop Zubsolv 5.7-1.4 mg sublingual tablet, sublingual, 1 Tablet Twice a Day Subjective: * Chief Complaints: * E MR-Luke * * Date:
--- OUTSIDE RECORDS SUMMARY | 2024-02-03 03:00 | XMS_ITS ---
Author Organization [facility] Address [address] [place] [address] Care Team Providers Care Iuss Master Analyst Name Role Phone Joseph Lewis MD Primary Care Provider Zane Joiner Unavailable [phone] ELROY BOOTHE Unavailable Unavailable Migration, Provider Unavailable Unavailable Allergies Allergen (clinical drug ingredient) Drug/Non Drug Allergy documented on EMR Reaction Allergy Type Onset Date Status Aspirin (ASA) (uncoded) Unknown Allergy 05/28/2008 Inactive acetaminophen Acetaminophen , Drug Allergy Active aspirin Aspirin , Drug Allergy Active ibuprofen Ibuprofen Unknown Drug Allergy 05/28/2008 Active sumatriptan Sumatriptan , Drug Allergy Act bi REASON FOR VISIT EMR-Luke Social History Social History Additional Details Category Social Info Options Details Migrated Social History Migrated Social History Alcoholic beverages? - No, Currently on disability? - Yes, Drug or substance abuse? - No, I am interested in quitting. - No, Marital Status - , Smoking - 1/2 PPD, Smoking status (MU) - Current every day smoker, Working currently? - No Encounters Encounter Location Date Provider Diagnosis Migrated_Facility 0 0 02/03/2024 Provider Migration Plan Of Treatment No Information Progress Notes * Kay GAMBOA MDOB:1965 (59 yo F)Acc No.[id number]:02/03/2024 Patient: Elva CADEKay BIGGS :1965 A ge:58 Y S ex:Female Address:[address], [address] [place] [address] Subjective: * Chief Complaints: * E MR-Luke * Medical History: Arthritis, B ronchitis, C onstipation, D epression, D iabetes, F ibromyalgia, H eart disease, H istory of measles, mumps, or rubella, H yperglycemia, K idney infection, M igraines, P TSD (post-traumatic stress disorder), S tomach ulcer, S troke, S welling of joint of multiple sites, * Surgical History: Appendectomy Biopsy of Bone Marrow Carpal tunnel surgery Gallbladder surgery Hysterectomy Laminectomy Tonsillectomy * Family History: M igrated Family History: : Cancer, c hronic pain, f ibromyalgia, H eart disease, p sychiatric problems, S troke, T uberculosis, v ascular disease. * Social History: M igrated Social History: M igrated Social History: Alcoholic beverages? - No, C urrently on disability? - Yes, D rug or substance abuse? - No, I am interested in quitting. - No, M arital Status - , Smoking - 1/2 PPD, S moking status (MU) - Current every day smoker, W orking currently? - No. * Allergies: S umatriptan: , - AllergyAcetaminophen: , - AllergyAspirin: , - AllergyIbuprofen: Allergy - Onset Date 2008-05-28 * * Date:
[2024-09-18 15:42] VITALS: BP 147/78; BMI 37.0
--- OUTSIDE RECORDS SUMMARY | 2025-04-03 17:47 | XMS_ITS | Encounter Summary ---
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
--- OUTSIDE RECORDS SUMMARY | 2025-04-03 17:47 | XMS_ITS | Encounter Summary ---
Author Organization [facility] Address [address] [place] [address] Care Team Providers Care Simulation Software Engineer Name Role Phone Areli Gurrola MD Primary Care Provider Encounter Details Date Type Department Care Team (Latest Contact Info) Description 05/24/1999 Outpatient Historical [facility] [address] [place] [address] Trell York MD [address] [place] [phone] Edema (Primary Dx); Lumbago Social History Tobacco Use Types Packs/Day Years Used Date Smoking Tobacco: Never Assessed Comments Unknown Sex and Gender Information Value Date Recorded Sex Assigned at Not on file Legal Sex Female 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 Gender Identity Not on file Sexual Orientation Not on file documented as of this encounter Plan of Treatment Not on file documented as of this encounter Visit Diagnoses Diagnosis Edema- Primary Lumbago documented in this encounter Additional Health Concerns Infection Onset Date Last Indicated Resolved Time R/O COVID-19 01/31/2020 01/31/2020 02/02/2020 10:3 2 AM CDT documented as of this encounter Care Teams Simulation Software Engineer Relationship Specialty Start Date End Date Areli Gurrola MD [address] [facility] [place] [address] PCP - General Specialist 08/12/19 documented as of this encounter
--- OUTSIDE RECORDS SUMMARY | 2025-04-03 17:47 | XMS_ITS | Encounter Summary ---
Author Organization [facility] Address [address] [place] [address] Care Team Providers Care Comp Field Case Manager Name Role Phone Areli Gurrola MD Primary Care Provider Encounter Details Date Type Department Care Team (Latest Contact Info) Description 10/27/1999 Outpatient Historical [facility] [address] [place] [address] Trell York MD [address] [place] [phone] Lumbago (Primary Dx) Social History Tobacco Use Types Packs/Day Years Used Date Smoking Tobacco: Never Assessed Comments Unknown Sex and Gender Information Value Date Recorded Sex Assigned at Not on file Legal Sex Female 3:40 AM EDITOR INDEX Gender Identity Not on file Sexual Orientation Not on file documented as of this encounter Plan of Treatment Not on file documented as of this encounter Visit Diagnoses Diagnosis Lumbago- Primary documented in this encounter Additional Health Concerns Infection Onset Date Last Indicated Resolved Time R/O COVID-19 01/31/2020 01/31/2020 02/02/2020 10:3 2 AM CDT documented as of this encounter Care Teams Comp Field Case Manager Relationship Specialty Start Date End Date Areli Gurrola MD [address] [facility] [place] [address] PCP - General Specialist 08/12/19 documented as of this encounter
--- OUTSIDE RECORDS SUMMARY | 2025-04-03 17:47 | XMS_ITS | Encounter Summary ---
Author Organization [facility] Address [address] [place] [address] Care Team Providers Care Measurement Advisor Name Role Phone Areli Gurrola MD Primary Care Provider Encounter Details Date Type Department Care Team (Late st Contact Info) Description 05/23/1999 Outpatient Historical [facility] Neurology [address] [facility] [address] [place] [address] Trell Hines MD [address] [place] [address] Carpal tunnel syndrome (Primary Dx) Social History Tobacco Use Types Packs/Day Years Used Date Smoking Tobacco: Never Assessed Comments Unknown Sex and Gender Information Value Date Recorded Sex Assigned at Not on file 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
--- OUTSIDE RECORDS SUMMARY | 2025-04-03 17:47 | XMS_ITS | Encounter Summary ---
Author Organization [facility] Address [address] [place] [address] Care Team Providers Care Family Mediator Name Role Phone Areli Gurrola MD Primary Care Provider Encounter Details Date Type Department Care Team (Latest Contact Info) Description 03/27/2001 Outpatient Historical [facility] [address] [place] [address] Trell York MD [address] [place] [phone] CERVICALGIA (Primary Dx); NEUROTIC DEPRESSION; LUMBAGO Social History Tobacco Use Types Packs/Day Years Used Date Smoking Tobacco: Never Assessed Comments Unknown Sex and Gender Information Value Date Recorded Sex Assigned at Not on file Legal Sex Female 3:40 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
--- OUTSIDE RECORDS SUMMARY | 2025-04-03 17:47 | XMS_ITS | Encounter Summary ---
Author Organization [facility] Address [address] [place] [address] Care Team Providers Care Shoe Sprayer Name Role Phone Areli Gurrola MD Primary Care Provider Encounter Details Date Type Department Care Team (Latest Contact Info) Description 06/08/1999 Outpatient Historical [facility] [address] [place] [address] Trell York MD [address] [place] [phone] Carpal tunnel syndrome (Primary Dx); Sprain of neck; Obesity, unspecified Social History Tobacco Use Types Packs/Day Years Used Date Smoking Tobacco: Never Assessed Comments Unknown Sex and Gender Information Value Date Recorded Sex Assigned at Not on file Legal Sex Female 3:40 

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
--- OUTSIDE RECORDS SUMMARY | 2025-04-03 17:47 | XMS_ITS | Encounter Summary ---
Author Organization [facility] Address [address] [facility] Attn: [place] [address] Care Team Providers Care Cafeteria Aide Name Role Phone Areli Gurrola MD [...] file Legal Sex Female 3:40 AM DATA ANALYTICS ARCHITECT Gender Identity Not on file Sexual Orientation Not on file documented as of this encounter Plan of Treatment Not on file documented as of this encounter Visit Diagnoses Not on filedocumented in this encounter Additional Health Concerns Infection Onset Date Last Indicated Resolved Time R/O COVID-19 01/31/2020 01/31/2020 02/02/2020 10:3 2 AM CDT documented as of this encounter Care Teams Cafeteria Aide Relationship Specialty Start Date End Date Areli Gurrola MD [address] [facility] [place] [address] PCP - General Specialist 08/12/19 documented as of this encounter
--- OUTSIDE RECORDS SUMMARY | 2025-04-03 17:47 | XMS_ITS | Encounter Summary ---
Author Organization 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
--- OUTSIDE RECORDS SUMMARY | 2025-04-03 17:47 | XMS_ITS | Encounter Summary ---
Author Organization [facility] Address [address] [facility] Attn: [place] [address] Care Team Providers Care Remediation Consultant Name Role Phone Areli Gurrola MD [...] documented as of this encounter Care Teams Remediation Consultant Relationship Specialty Start Date End Date Areli Gurrola MD [address] [facility] [place] [address] PCP - General Specialist 08/12/19 documented as of this encounter
--- OUTSIDE RECORDS SUMMARY | 2025-04-03 17:47 | XMS_ITS | Encounter Summary ---
Author Organization [facility] Address [address] [place] [address] Care Team Providers Care Sheet Cutting Operator Name Role Phone Areli Gurrola MD Primary Care Provider Encounter Details Date Type Department Care Team (Late st Contact Info) Description 06/11/2001 Outpatient Historical [facility] Gen Spec Surg [address] [place] [address] Social History Tobacco Use Types Packs/Day Years Used Date Smoking Tobacco: Never Assessed Comments Unknown Sex and Gender Information Value Date Recorded Sex Assigned at Not on file Legal Sex Female 3:40 AM WHITE GOODS APPLIANCE TECH Gender Identity Not on file Sexual Orientation Not on file documented as of this encounter Plan of Treatment Not on file documented as of this encounter Visit Diagnoses Not on filedocumented in this encounter Additional Health Concerns Infection Onset Date Last Indicated Resolved Time R/O COVID-19 01/31/2020 01/31/2020 02/02/2020 10:3 2 AM CDT documented as of this encounter Care Teams Sheet Cutting Operator Relationship Specialty Start Date End Date Areli Gurrola MD [address] [place] [address] PCP - General Specialist 08/12/19 documented as of this encounter
--- OUTSIDE RECORDS SUMMARY | 2025-04-03 17:47 | XMS_ITS | Encounter Summary ---
Author Organization [facility] Address [address] [place] [address] Care Team Providers Care Clinical Transplant Coordinator Name Role Phone Areli Gurrola MD Primary Care Provider Encounter Details Date Type Department Care Team (Latest Contact Info) Description 11/28/1999 Outpatient Historical [facility] [address] [place] [address] Trell York MD [address] [place] [phone] Lumbago (Primary Dx) Social History Tobacco Use Types Packs/Day Years Used Date Smoking Tobacco: Never Assessed Comments Unknown Sex and Gender Information Value Date Recorded Sex Assigned at Not on file Legal Sex Female 3:40 AM ENVIRONMENTAL SERVICES MANAGER Gender Identity Not on file Sexual Orientation Not on file documented as of this encounter Plan of Treatment Not on file documented as of this encounter Visit Diagnoses Diagnosis Lumbago- Primary documented in this encounter Additional Health Concerns Infection Onset Date Last Indicated Resolved Time R/O COVID-19 01/31/2020 01/31/2020 02/02/2020 10:3 2 AM CDT documented as of this encounter Care Teams Clinical Transplant Coordinator Relationship Specialty Start Date End Date Areli Gurrola MD [address] [facility] [place] [address] PCP - General Specialist 08/12/19 documented as of this encounter
--- OUTSIDE RECORDS SUMMARY | 2025-04-03 17:47 | XMS_ITS | Encounter Summary ---
Author Organization [facility] Address [address] [place] [address] Care Team Providers Care Outreach Rep Name Role Phone Areli Gurrola MD Primary Care Provider Encounter Details Date Type Department Care Team (Latest Contact Info) Description 07/27/2000 Outpatient Historical [facility] [address] [place] [address] Trell York MD [address] [place] [phone] Unspecified disorder of female genital organs (Primary Dx); Cervicalgia Social History Tobacco Use Types Packs/Day Years Used Date Smoking Tobacco: Never Assessed Comments Unknown Sex and Gender Information Value Date Recorded Sex Assigned at Not on file Legal Sex Female 3:40 AM FOOD AND BEVERAGE DIRECTOR Gender Identity Not on file Sexual [...] Areli Gurrola MD [address] [place] [address] PCP - General Specialist 08/12/19 documented as of this encounter
--- OUTSIDE RECORDS SUMMARY | 2025-04-03 17:47 | XMS_ITS | Encounter Summary ---
Author Organization [facility] Address [address] [place] [address] Care Team Providers Care Chicken Picker Name Role Phone Areli Gurrola MD Primary Care Provider Encounter Details Date Type Department Care Team (Latest Contact Info) Description 10/08/2000 Outpatient Historical [facility] [address] [place] [address] Trell York MD [address] [place] [phone] Sprain and strain of unspecified site of knee and leg (Primary Dx) Social History Tobacco Use Types Packs/Day Years Used Date Smoking Tobacco: Never Assessed Comments Unknown Sex and Gender Information Value Date Recorded Sex Assigned at Not on file Legal Sex Female 3:40 AM AIR CONDITIONING SERVICE TECHNICIAN Gender Identity Not on file [...] as of this encounter Care Teams Chicken Picker Relationship Specialty Start Date End Date Areli Gurrola MD [address] [facility] [place] [address] PCP - General Specialist 08/12/19 documented as of this encounter
--- OUTSIDE RECORDS SUMMARY | 2025-04-03 17:47 | XMS_ITS | Encounter Summary ---
Author Organization [facility] Address [address] [place] [address] Care Team Providers Care Heel Seat Laster Name Role Phone Areli Gurrola MD Primary Care Provider Encounter Details Date Type Department Care Team (Latest Contact Info) Description 12/05/2000 Outpatient [facility] [address] [place] [address] Trell York MD [address] [place] [phone] Lumbago (Primary Dx); Cervicalgia; Pain in joint, pelvic region and thigh Social History Tobacco Use Types Packs/Day Years Used Date Smoking Tobacco: Never Assessed Comments Unknown Sex and Gender Information Value Date Recorded Sex Assigned at Not on file Legal Sex Female 3:40 AM BLAST FURNACE KEEPER Gender Identity Not on file Sexual Orientation [...] of this encounter Care Teams Heel Seat Laster Relationship Specialty Start Date End Date Arlei Gurrola MD [address] [place] [address] PCP - General Specialist 08/12/19 documented as of this encounter
--- OUTSIDE RECORDS SUMMARY | 2025-04-03 17:47 | XMS_ITS | Encounter Summary ---
Author Organization [facility] Address [address] [place] [address] Care Team Providers Care Line Erector Name Role Phone Areli Gurrola MD Primary Care Provider Encounter Details Date Type Department Care Team (Latest Contact Info) Description 06/07/2000 Outpatient Historical [facility] [address] [place] [address] Trell York MD [address] [place] [phone] Lumbago (Primary Dx); Open wound of foot except toe(s) alone, without mention of complication Social History Tobacco Use Types Packs/Day Years Used Date Smoking Tobacco: Never Assessed Comments Unknown Sex and Gender Information Value Date Recorded Sex Assigned at Not on file Legal Sex Female 3:40 AM FORENSIC IDENTIFICATION SPECIALIST Gender Identity Not on file Sexual [...] as of this encounter Care Teams Line Erector Relationship Specialty Start Date End Date Areli Gurrola MD [address] [facility] [place] [address] PCP - General Specialist 08/12/19 documented as of this encounter
--- OUTSIDE RECORDS SUMMARY | 2025-04-03 17:47 | XMS_ITS | Encounter Summary ---
Author Organization [facility] Address [address] [place] [address] Care Team Providers Care Architect Internship Name Role Phone Areli Gurrola MD Primary Care Provider Encounter Details Date Type Department Care Team (Latest Contact Info) Description 12/27/1999 [facility] [address] [place] [address] Trell York MD [address] [place] [phone] Migraine without aura, without mention of intractable migraine without mention of status migrainosus (Primary Dx); Lumbago Social History Tobacco Use Types Packs/Day Years Used Date Smoking Tobacco: Never Assessed Comments Unknown Sex and Gender Information Value Date Recorded Sex Assigned at Not on file Legal Sex Female 3:40 AM ASSET PROTECTION LEAD Gender Identity Not on file Sexual [...] documented as of this encounter Care Teams Architect Internship Relationship Specialty Start Date End Date Areli Gurrola MD [address] [place] [address] PCP - General Specialist 08/12/19 documented as of this encounter
--- OUTSIDE RECORDS SUMMARY | 2025-04-03 17:47 | XMS_ITS | Encounter Summary ---
Author Organization [facility] Address [address] [place] [address] Care Team Providers Care Management Architect Name Role Phone Areli Gurrola MD Primary Care Provider Encounter Details Date Type Department Care Team (Latest Contact Info) Description 08/18/1999 Outpatient Historical [facility] Joseph Ramos MD [address] [place] [address] Pain in joint, hand (Primary Dx) Social History Tobacco Use Types Packs/Day Years Used Date Smoking Tobacco: Never Assessed Comments Unknown Sex and Gender Information Value Date Recorded Sex Assigned at Not on file Legal Sex Female 3:40 AM SIDE SHOW ENTERTAINER Gender Identity Not on file Sexual Orientation [...] documented as of this encounter Care Teams Management Architect Relationship Specialty Start Date End Date Areli Gurrola MD [address] [facility] [place] [address] PCP - General Specialist 08/12/19 documented as of this encounter
--- OUTSIDE RECORDS SUMMARY | 2025-04-03 17:47 | XMS_ITS | Encounter Summary ---
Author Organization [facility] Address [address] [place] [address] Care Team Providers Care Brim Rounder Name Role Phone Areli Gurrola MD Primary Care Provider Encounter Details Date Type Department Care Team (Latest Contact Info) Description 07/20/1999 Outpatient Historical [facility] Joseph Ramos MD [address] [place] [address] Pain in joint, hand (Primary Dx) Social History Tobacco Use Types Packs/Day Years Used Date Smoking Tobacco: Never Assessed Comments Unknown Sex and Gender Information Value Date Recorded Sex Assigned at Not on file Legal Sex Female 3:40 AM PLATING INSPECTOR Gender Identity Not on file Sexual [...] documented as of this encounter Care Teams Brim Rounder Relationship Specialty Start Date End Date Areli Gurrola MD [address] [place] [place] [address] PCP - General Specialist 08/12/19 documented as of this encounter
--- OUTSIDE RECORDS SUMMARY | 2025-04-03 17:47 | XMS_ITS | Encounter Summary ---
Author Organization [facility] Address [address] [place] [address] Care Team Providers Care Game Designer Name Role Phone Areli Gurrola MD Primary Care Provider Encounter Details Date Type Department Care Team (Latest Contact Info) Description 09/08/[address] [facility] [address] [place] [address] Trell York MD [address] [place] [phone] Lumbago (Primary Dx); Obesity, unspecified Social History Tobacco Use Types Packs/Day Years Used Date Smoking Tobacco: Never Assessed Comments Unknown Sex and Gender Information Value Date Recorded Sex Assigned at Not on file Legal Sex Female 3:40 AM SENIOR INVESTMENT ANALYST Gender Identity Not on file Sexual [...] as of this encounter Care Teams Game Designer Relationship Specialty Start Date End Date Areli Gurrola MD [address] [facility] [place] [place] [address] PCP - General Specialist 08/12/19 documented as of this encounter
--- OUTSIDE RECORDS SUMMARY | 2025-04-03 17:47 | XMS_ITS | Encounter Summary ---
Author Organization [facility] Address [address] [place]: [place] [address] Care Team Providers Care Filling Carrier Name Role Phone Areli Gurrola MD Primary Care Provider Encounter Details Date Type Department Care Team (Late st Contact Info) Description 06/06/2001 Outpatient Historical [place], Trell Pascual MD [address] [place] [phone] Social History Tobacco Use Types Packs/Day Years Used Date Smoking Tobacco: Never Assessed Comments Unknown Sex and Gender Information Value Date Recorded Sex Assigned at Not on file Legal Sex Female 3:40 AM SENIOR PROGRAM ANALYST Gender Identity Not on file Sexual Orientation Not on file documented as of this encounter Plan of Treatment Not on file documented as of this encounter Visit Diagnoses Not on filedocumented in this encounter Additional Health Concerns Infection Onset Date Last Indicated Resolved Time R/O COVID-19 01/31/2020 01/31/2020 02/02/2020 10:3 2 AM CDT documented as of this encounter Care Teams Filling Carrier Relationship Specialty Start Date End Date Areli Gurrola MD [address] [place] [phone] PCP - General Specialist 08/12/19 documented as of this encounter
--- OUTSIDE RECORDS SUMMARY | 2025-04-03 17:47 | XMS_ITS | Encounter Summary ---
Author Organization [facility] Address [address] [place] [address] Care Team Providers Care Press Assistant And Feeder Name Role Phone Areli Gurrola MD Primary Care Provider Encounter Details Date Type Department Care Team (Latest Contact Info) Description 09/29/1999 Outpatient Historical [facility] [address] [place] [address] Trell York MD [address] [place] [phone] Obesity, unspecified (Primary Dx); Lumbago Social History Tobacco Use Types Packs/Day Years Used Date Smoking Tobacco: Never Assessed Comments Unknown Sex and Gender Information Value Date Recorded Sex Assigned at Not on file Legal Sex Female 3:40 AM OPTICAL GLASS ETCHER Gender Identity Not on file Sexual [...] of this encounter Care Teams Press Assistant And Feeder Relationship Specialty Start Date End Date Areli Gurrola MD [address] [facility] [place] [address] PCP - General Specialist 08/12/19 documented as of this encounter
--- OUTSIDE RECORDS SUMMARY | 2025-04-03 17:47 | XMS_ITS | Encounter Summary ---
Author Organization [facility] Address [address] [place] [address] Care Team Providers Care Shipyard Painter Apprentice Name Role Phone Areli Gurrola MD Primary Care Provider Encounter Details Date Type Department Care Team (Latest Contact Info) Description 01/07/2001 Outpatient Historical [facility] [address] [place] [address] Trell York MD [address] [place] [phone] Unspecified disorder of female genital organs (Primary Dx); Cervicalgia; Lumbago Social History Tobacco Use Types Packs/Day Years Used Date Smoking Tobacco: Never Assessed Comments Unknown Sex and Gender Information Value Date Recorded Sex Assigned at Not on file Legal Sex Female 3:40 AM REVENUE ENFORCEMENT COLLECTION AGENT Gender Identity Not on file Sexual [...] documented as of this encounter Care Teams Shipyard Painter Apprentice Relationship Specialty Start Date End Date Areli Gurrola MD [address] [place] [address] PCP - General Specialist 08/12/19 documented as of this encounter
--- OUTSIDE RECORDS SUMMARY | 2025-04-03 17:47 | XMS_ITS | Encounter Summary ---
Author Organization [facility] Address [address] [place] [address] Care Team Providers Care Facing Cutting Machine Operator Name Role Phone Areli Gurrola MD Primary Care Provider Encounter Details Date Type Department Care Team (Latest Contact Info) Description 06/20/1999 Outpatient Historical [facility] Joseph Ramos MD [address] [place] [address] Pain in joint, hand (Primary Dx) Social History Tobacco Use Types Packs/Day Years Used Date Smoking Tobacco: Never Assessed Comments Unknown Sex and Gender Information Value Date Recorded Sex Assigned at Not on file Legal Sex Female 3:40 AM AC/DC REWINDER Gender Identity Not on file Sexual Orientation [...] documented as of this encounter Care Teams Facing Cutting Machine Operator Relationship Specialty Start Date End Date Areli Gurrola MD [address] [place] [address] PCP - General Specialist 08/12/19 documented as of this encounter
--- OUTSIDE RECORDS SUMMARY | 2025-04-03 17:47 | XMS_ITS | Encounter Summary ---
Author Organization [facility] Address [address] [place] [address] Care Team Providers Care Faculty I On Call Medical Assistant Name Role Phone Areli Gurrola MD Primary Care Provider Encounter Details Date Type Department Care Team (Latest Contact Info) Description 05/09/1999 Outpatient Historical [facility] [address] [place] [address] Trell York MD [address] [place] [phone] Cervical spinal stenosis (Primary Dx); Contusion of elbow Social History Tobacco Use Types Packs/Day Years Used Date Smoking Tobacco: Never Assessed Comments Unknown Sex and Gender Information Value Date Recorded Sex Assigned at Not on file Legal Sex Female 3:40 AM CHIP CRUSHER OPERATOR Gender Identity Not on file Sexual [...] documented as of this encounter Care Teams Faculty I On Call Medical Assistant Relationship Specialty Start Date End Date Areli Gurrola MD [address] [place] [address] PCP - General Specialist 08/12/19 documented as of this encounter
--- OUTSIDE RECORDS SUMMARY | 2025-04-03 17:47 | XMS_ITS | Encounter Summary ---
Author Organization [facility] Address [address] Attn: [place] [address] Care Team Providers Care Cashier Courtesy Booth Name Role Phone Areli Gurrola MD Primary Care Provider Encounter Details Date Type Department Care Team (Late st Contact Info) Description 08/24/1999 Outpatient Historical Joseph Ramos MD [address] [place] [address] Social History Tobacco Use Types Packs/Day Years Used Date Smoking Tobacco: Never Assessed Comments Unknown Sex and Gender Information Value Date Recorded Sex Assigned at Not on file Legal Sex Female 3:40 AM NATURAL GAS PLANT TECHNICIAN Gender Identity Not on file Sexual Orientation Not on file documented as of this encounter Plan of Treatment Not on file documented as of this encounter Visit Diagnoses Not on filedocumented in this encounter Additional Health Concerns Infection Onset Date Last Indicated Resolved Time R/O COVID-19 01/31/2020 01/31/2020 02/02/2020 10:3 2 AM CDT documented as of this encounter Care Teams Cashier Courtesy Booth Relationship Specialty Start Date End Date Areli Gurrola MD [address] [place] [address] PCP - General Specialist 08/12/19 documented as of this encounter
--- OUTSIDE RECORDS SUMMARY | 2025-04-03 17:47 | XMS_ITS | Encounter Summary ---
Author Organization [facility] Address [address] [place] [address] Care Team Providers Care Pulmonary Specialist Name Role Phone Areli Gurrola MD Primary Care Provider Encounter Details Date Type Department Care Team (Late st Contact Info) Description 05/03/1999 Outpatient Historical [facility] [place], Gibran Lynn MD [address] [facility] [address] [place] [address] Cramp of limb (Primary Dx) Social History Tobacco Use Types Packs/Day Years Used Date Smoking Tobacco: Never Assessed Comments Unknown Sex and Gender Information Value Date Recorded Sex Assigned at Not on file Legal Sex Female 3:40 AM SOLAR ELECTRIC PRACTITIONER Gender Identity Not on file Sexual [...] documented as of this encounter Care Teams Pulmonary Specialist Relationship Specialty Start Date End Date Areli Gurrola MD [address] [place] [address] PCP - General Specialist 08/12/19 documented as of this encounter
--- OUTSIDE RECORDS SUMMARY | 2025-04-03 17:47 | XMS_ITS | Encounter Summary ---
Author Organization [facility] Address [address] [place] [address] Care Team Providers Care Facilities Operations Technician Name Role Phone Areli Gurrola MD Primary Care Provider Encounter Details Date Type Department Care Team (Latest Contact Info) Description 03/14/2000 Outpatient [facility] [address] [place] [address] Trell York MD [address] [place] [phone] Unspecified disorder of female genital organs (Primary Dx); Lumbago Social History Tobacco Use Types Packs/Day Years Used Date Smoking Tobacco: Never Assessed Comments Unknown Sex and Gender Information Value Date Recorded Sex Assigned at Not on file Legal Sex Female 3:40 AM DANCE ARTIST Gender Identity Not on file Sexual Orientation [...] as of this encounter Care Teams Facilities Operations Technician Relationship Specialty Start Date End Date Areli Gurrola MD [address] [facility] [place] [address] PCP - General Specialist 08/12/19 documented as of this encounter
--- OUTSIDE RECORDS SUMMARY | 2025-04-03 17:47 | XMS_ITS | Clinical Summary ---
Author Organization [facility] Address [address] [place] [address] Care Team Providers Care Telecommunicator Supervisor Name Role Phone Areli Gurrola MD [...] on file Legal Sex Female 3:40 AM CORN HUSKER Gender Identity Not on file Sexual Orientation [...] or Tdap) 03/15/2030 03/15/2020, 11/07/1997, 03/03/1997 Insurance [facility] DUAL COMPLETE MCR PPO D-SNP [place]ICAID [place] Advance Directives For more information, please contact: [phone] * Full Code (Latest Code Status on File) Date Activated Date Inactivated Comments 02/17/2016 12:44 PM 02/17/2016 4:46 PM Care Teams Telecommunicator Supervisor Relationship Specialty Start Date End Date Areli Gurrola MD [address] [place] [address] PCP - General Specialist 08/12/19
--- OUTSIDE RECORDS SUMMARY | 2025-04-03 17:47 | XMS_ITS | Encounter Summary ---
Author Organization [facility] Address [address] [place] [address] Care Team Providers Care Local Government Legislator Name Role Phone Areli Gurrola MD Primary Care Provider Encounter Details Date Type Department Care Team (Latest Contact Info) Description 02/21/2000 Outpatient Historical [facility] [address] [place] [address] Trell York MD [address] [place] [phone] Stricture of cervix (Primary Dx); Lumbago Social History Tobacco Use Types Packs/Day Years Used Date Smoking Tobacco: Never Assessed Comments Unknown Sex and Gender Information Value Date Recorded Sex Assigned at Not on file Legal Sex Female 3:40 AM HEAVY FORGER Gender Identity Not on file Sexual [...] as of this encounter Care Teams Local Government Legislator Relationship Specialty Start Date End Date Areli Gurrola MD [address] [place] [address] PCP - General Specialist 08/12/19 documented as of this encounter
--- OUTSIDE RECORDS SUMMARY | 2025-04-03 17:47 | XMS_ITS | Encounter Summary ---
Author Organization [facility] Address [address] Attn: [place] [address] Care Team Providers Care Shell Trim Tool Setter Name Role Phone Areli Gurrola [...] on file Legal Sex Female 3:40 AM TILE FINISHER Gender Identity Not on file Sexual Orientation Not on file documented as of this encounter Plan of Treatment Not on file documented as of this encounter Visit Diagnoses Not on filedocumented in this encounter Additional Health Concerns Infection Onset Date Last Indicated Resolved Time R/O COVID-19 01/31/2020 01/31/2020 02/02/2020 10:3 2 AM CDT documented as of this encounter Care Teams Shell Trim Tool Setter Relationship Specialty Start Date End Date Areli Gurrola MD [address] [facility] [place] [address] PCP - General Specialist 08/12/19 documented as of this encounter
--- OUTSIDE RECORDS SUMMARY | 2025-04-03 17:47 | XMS_ITS | Encounter Summary ---
Author Organization [facility] Address [address] [facility] Attn: [place] [address] Care Team Providers Care Digital Marketer Name Role Phone Areli Gurrola MD Primary Care Provider Encounter Details Date Type Department Care Team (Late st Contact Info) Description 11/10/1999 Outpatient Historical Joseph Ramos MD [address] [place] [address] Social History Tobacco Use Types Packs/Day Years Used Date Smoking Tobacco: Never Assessed Comments Unknown Sex and Gender Information Value Date Recorded Sex Assigned at Not on file Legal Sex Female 3:40 AM LABOR CONCILIATOR Gender Identity Not on file Sexual Orientation Not on file documented as of this encounter Plan of Treatment Not on file documented as of this encounter Visit Diagnoses Not on filedocumented in this encounter Additional Health Concerns Infection Onset Date Last Indicated Resolved Time R/O COVID-19 01/31/2020 01/31/2020 02/02/2020 10:3 2 AM CDT documented as of this encounter Care Teams Digital Marketer Relationship Specialty Start Date End Date Areli Gurrola MD [address] [facility] [place] [address] PCP - General Specialist 08/12/19 documented as of this encounter
--- OUTSIDE RECORDS SUMMARY | 2025-04-03 17:47 | XMS_ITS | Encounter Summary ---
Author Organization [facility] Address [address] [place] [address] Care Team Providers Care Computer Network Specialist Name Role Phone Areli Gurrola MD Primary Care Provider Encounter Details Date Type Department Care Team (Latest Contact Info) Description 06/08/1999 Outpatient Historical [facility] [place], Trell Pascual MD [address] [place] [address] Obesity, unspecified (Primary Dx); Encounter for long-term (current) use of other medications Social History Tobacco Use Types Packs/Day Years Used Date Smoking Tobacco: Never Assessed Comments Unknown Sex and Gender Information Value Date Recorded Sex Assigned at Not on file Legal Sex Female 3:40 AM PROTEIN SPECIALIST Gender Identity Not on file Sexual [...] as of this encounter Care Teams Computer Network Specialist Relationship Specialty Start Date End Date Areli Gurrola MD [address] [facility] [place] [address] PCP - General Specialist 08/12/19 documented as of this encounter
--- OUTSIDE RECORDS SUMMARY | 2025-04-03 17:47 | XMS_ITS | Encounter Summary ---
Author Organization [facility] Address [address] [place] [address] Care Team Providers Care Magnetic Prospecting Supervisor Name Role Phone Areli Gurrola MD Primary Care Provider Encounter Details Date Type Department Care Team (Latest Contact Info) Description 08/09/1999 Outpatient Historical [facility] [address] [place] [address] Trell oYrk MD [address] [place] [phone] Stricture of cervix (Primary Dx) Social History Tobacco Use Types Packs/Day Years Used Date Smoking Tobacco: Never Assessed Comments Unknown Sex and Gender Information Value Date Recorded Sex Assigned at Not on file Legal Sex Female 3:40 AM SENIOR PORTFOLIO MANAGER Gender Identity Not on file Sexual [...] documented as of this encounter Care Teams Magnetic Prospecting Supervisor Relationship Specialty Start Date End Date Areli Gurrola MD [address] [facility] [place] [address] PCP - General Specialist 08/12/19 documented as of this encounter
--- OUTSIDE RECORDS SUMMARY | 2025-04-03 17:47 | XMS_ITS | Encounter Summary ---
Author Organization [facility] Address [address] Attn: [place] [address] Care Team Providers Care Roll Sheeting Cutter Name Role Phone Areli Gurrola MD [...] file Legal Sex Female 3:40 AM SALES AMBASSADOR Gender Identity Not on file Sexual Orientation Not on file documented as of this encounter Plan of Treatment Not on file documented as of this encounter Visit Diagnoses Not on filedocumented in this encounter Additional Health Concerns Infection Onset Date Last Indicated Resolved Time R/O COVID-19 01/31/2020 01/31/2020 02/02/2020 10:3 2 AM CDT documented as of this encounter Care Teams Roll Sheeting Cutter Relationship Specialty Start Date End Date Areli Gurrola MD [address] [place] [address] PCP - General Specialist 08/12/19 documented as of this encounter
--- OUTSIDE RECORDS SUMMARY | 2025-04-03 17:47 | XMS_ITS | Encounter Summary ---
Author Organization [facility] Address [address] Attn: [place] [address] Care Team Providers Care Trim Setter Helper Name Role Phone Areli Gurrola MD Primary Care Provider Encounter Details Date Type Department Care Team (Late st Contact Info) Description 11/16/1999 Outpatient Historical Joseph Ramos MD [address] [place] [address] Social History Tobacco Use Types Packs/Day Years Used Date Smoking Tobacco: Never Assessed Comments Unknown Sex and Gender Information Value Date Recorded Sex Assigned at Not on file Legal Sex Female 3:40 AM TOOL FILER Gender Identity Not on file Sexual Orientation Not on file documented as of this encounter Plan of Treatment Not on file documented as of this encounter Visit Diagnoses Not on filedocumented in this encounter Additional Health Concerns Infection Onset Date Last Indicated Resolved Time R/O COVID-19 01/31/2020 01/31/2020 02/02/2020 10:3 2 AM CDT documented as of this encounter Care Teams Trim Setter Helper Relationship Specialty Start Date End Date Areli Gurrola MD [address] [facility] [place] [address] PCP - General Specialist 08/12/19 documented as of this encounter
--- OUTSIDE RECORDS SUMMARY | 2025-04-03 17:47 | XMS_ITS | Encounter Summary ---
Author Organization [facility] Address [address] [place] [address] Care Team Providers Care Specialist Employee Labor Relations Name Role Phone Areli Gurrola MD Primary Care Provider Encounter Details Date Type Department Care Team (Latest Contact Info) Description 10/20/1999 Outpatient Historical [facility] Joseph Ramos MD [address] [place] [address] Carpal tunnel syndrome (Primary Dx) Social History Tobacco Use Types Packs/Day Years Used Date Smoking Tobacco: Never Assessed Comments Unknown Sex and Gender Information Value Date Recorded Sex Assigned at Not on file Legal Sex Female 3:40 AM MARINE SERVICE MANAGER Gender Identity Not on file [...] documented as of this encounter Care Teams Specialist Employee Labor Relations Relationship Specialty Start Date End Date Areli Gurrola MD [address] [place] [place] [address] PCP - General Specialist 08/12/19 documented as of this encounter
--- OUTSIDE RECORDS SUMMARY | 2025-04-03 17:47 | XMS_ITS | Encounter Summary ---
Author Organization [facility] Address [address] [place] [address] Care Team Providers Care Director Search Marketing Strategies Name Role Phone Areli Gurrola MD Primary Care Provider Encounter Details Date Type Department Care Team (Latest Contact Info) Description 04/25/2001 Outpatient Historical [facility] [address] [place] [address] Trell York MD [address] [place] [phone] ESOPHAGITIS, UNSPECIFIED (Primary Dx); LUMBAGO; SEBACEOUS CYST Social History Tobacco Use Types Packs/Day Years Used Date Smoking Tobacco: Never Assessed Comments Unknown Sex and Gender Information Value Date Recorded Sex Assigned at Not on file Legal Sex Female 3:40 AM MEDICAL RECORD RETRIEVAL SPECIALIST Gender Identity Not on file Sexual [...] as of this encounter Care Teams Director Search Marketing Strategies Relationship Specialty Start Date End Date Areli Gurrola MD [address] [place] [address] PCP - General Specialist 08/12/19 documented as of this encounter
--- OUTSIDE RECORDS SUMMARY | 2025-04-03 17:47 | XMS_ITS | Encounter Summary ---
Author Organization [facility] Address [address] [place] [address] Care Team Providers Care Warp Picker Name Role Phone Areli Gurrola MD Primary Care Provider Encounter Details Date Type Department Care Team (Latest Contact Info) Description 04/23/2000 Outpatient [facility] [address] [place] [address] Trell York MD [address] [place] [phone] Cervicalgia (Primary Dx); Other convulsions Social History Tobacco Use Types Packs/Day Years Used Date Smoking Tobacco: Never Assessed Comments Unknown Sex and Gender Information Value Date Recorded Sex Assigned at Not on file Legal Sex Female 3:40 AM LEASING SPECIALIST Gender Identity Not on file Sexual [...] as of this encounter Care Teams Warp Picker Relationship Specialty Start Date End Date Areli Gurrola MD [address] [facility] [place] [address] PCP - General Specialist 08/12/19 documented as of this encounter
--- OUTSIDE RECORDS SUMMARY | 2025-04-03 17:47 | XMS_ITS | Encounter Summary ---
Author Organization [facility] Address [address] [place] [address] Care Team Providers Care Delivery Coordinator Name Role Phone Areli Gurrola MD Primary Care Provider Encounter Details Date Type Department Care Team (Latest Contact Info) Description 01/30/2000 Outpatient Historical [facility] [address] [place] [address] Trell York MD [address] [place] [phone] Lumbago (Primary Dx) Social History Tobacco Use Types Packs/Day Years Used Date Smoking Tobacco: Never Assessed Comments Unknown Sex and Gender Information Value Date Recorded Sex Assigned at Not on file Legal Sex Female 3:40 AM INFORMATION SECURITY SPECIALIST Gender Identity Not on file Sexual Orientation Not on file documented as of this encounter Plan of Treatment Not on file documented as of this encounter Visit Diagnoses Diagnosis Lumbago- Primary documented in this encounter Additional Health Concerns Infection Onset Date Last Indicated Resolved Time R/O COVID-19 01/31/2020 01/31/2020 02/02/2020 10:3 2 AM CDT documented as of this encounter Care Teams Delivery Coordinator Relationship Specialty Start Date End Date Areli Gurrola MD [address] [facility] [place] [address] PCP - General Specialist 08/12/19 documented as of this encounter
--- OUTSIDE RECORDS SUMMARY | 2025-04-03 17:47 | XMS_ITS | Encounter Summary ---
Author Organization [facility] Address [address] [place] [address] Care Team Providers Care Quality Improvement Consultant Name Role Phone Areli Gurrola MD Primary Care Provider Encounter Details Date Type Department Care Team (Latest Contact Info) Description 11/13/2000 Outpatient Historical [facility] [address] [place] [address] Trell York MD [address] [place] [phone] Insomnia, unspecified (Primary Dx); Lumbago Social History Tobacco Use Types Packs/Day Years Used Date Smoking Tobacco: Never Assessed Comments Unknown Sex and Gender Information Value Date Recorded Sex Assigned at Not on file Legal Sex Female 3:40 AM SCREENER PERFUMER Gender Identity Not on file Sexual Orientation [...] as of this encounter Care Teams Quality Improvement Consultant Relationship Specialty Start Date End Date Areli Gurrola MD [address] [facility] [place] [address] PCP - General Specialist 08/12/19 documented as of this encounter
--- OUTSIDE RECORDS SUMMARY | 2025-04-03 17:47 | XMS_ITS | Encounter Summary ---
Author Organization [facility] Address [address] Attn: [place] [address] Care Team Providers Care Anode Rebuilder Name Role Phone Areli Gurrola MD Primary Care Provider Encounter Details Date Type Department Care Team (Late st Contact Info) Description 08/19/1999 Outpatient Historical Joseph Ramos MD [address] [place] [address] Social History Tobacco Use Types Packs/Day Years Used Date Smoking Tobacco: Never Assessed Comments Unknown Sex and Gender Information Value Date Recorded Sex Assigned at Not on file Legal Sex Female 3:40 AM RECEIVABLE EXECUTIVE Gender Identity Not on file Sexual Orientation Not on file documented as of this encounter Plan of Treatment Not on file documented as of this encounter Visit Diagnoses Not on filedocumented in this encounter Additional Health Concerns Infection Onset Date Last Indicated Resolved Time R/O COVID-19 01/31/2020 01/31/2020 02/02/2020 10:3 2 AM CDT documented as of this encounter Care Teams Anode Rebuilder Relationship Specialty Start Date End Date Areli Gurrola MD [address] [facility] [place] [address] PCP - General Specialist 08/12/19 documented as of this encounter
--- OUTSIDE RECORDS SUMMARY | 2025-04-03 17:47 | XMS_ITS | Encounter Summary ---
Author Organization [facility] Address [address] Attn: [place] [address] Care Team Providers Care Jammer Hooker Name Role Phone Areli Gurrola MD [...] on file Legal Sex Female 3:40 AM DISABILITIES SERVICES OFFICER Gender Identity Not on file Sexual Orientation Not on file documented as of this encounter Plan of Treatment Not on file documented as of this encounter Visit Diagnoses Not on filedocumented in this encounter Additional Health Concerns Infection Onset Date Last Indicated Resolved Time R/O COVID-19 01/31/2020 01/31/2020 02/02/2020 10:3 2 AM CDT documented as of this encounter Care Teams Jammer Hooker Relationship Specialty Start Date End Date Areli Gurrola MD [address] [facility] [place] [address] PCP - General Specialist 08/12/19 documented as of this encounter
--- OUTSIDE RECORDS SUMMARY | 2025-04-03 17:47 | XMS_ITS | Encounter Summary ---
Author Organization [facility] Address [address] [place] [address] Care Team Providers Care Horse Racing Manager Name Role Phone Areli Gurrola MD Primary Care Provider Encounter Details Date Type Department Care Team (Latest Contact Info) Description 09/01/1999 Outpatient Historical [facility] Joseph Ramos MD [address] [place] [address] Pain in joint, hand (Primary Dx); Follow-up examination following surgery Social History Tobacco Use Types Packs/Day Years Used Date Smoking Tobacco: Never Assessed Comments Unknown Sex and Gender Information Value Date Recorded Sex Assigned at Not on file Legal Sex Female 3:40 AM METER TESTER PRIMARY Gender Identity Not on file Sexual Orientation [...] documented as of this encounter Care Teams Horse Racing Manager Relationship Specialty Start Date End Date Areli Gurrola MD [address] [place] [address] PCP - General Specialist 08/12/19 documented as of this encounter
--- OUTSIDE RECORDS SUMMARY | 2025-04-03 17:47 | XMS_ITS | Encounter Summary ---
Author Organization [facility] Address [address] [place] [address] Care Team Providers Care Byproducts Operator Name Role Phone Areli Gurrola MD Primary Care Provider Encounter Details Date Type Department Care Team (Late st Contact Info) Description 03/28/1999 Outpatient Historical [facility] Social History Tobacco Use Types Packs/Day Years Used Date Smoking Tobacco: Never Assessed Comments Unknown Sex and Gender Information Value Date Recorded Sex Assigned at Not on file Legal Sex Female 3:40 AM PHOTOSTAT OPERATOR Gender Identity Not on file Sexual Orientation Not on file documented as of this encounter Plan of Treatment Not on file documented as of this encounter Visit Diagnoses Not on filedocumented in this encounter Additional Health Concerns Infection Onset Date Last Indicated Resolved Time R/O COVID-19 01/31/2020 01/31/2020 02/02/2020 10:3 2 AM CDT documented as of this encounter Care Teams Byproducts Operator Relationship Specialty Start Date End Date Areli Gurrola MD [address] [place] [address] PCP - General Specialist 08/12/19 documented as of this encounter
--- OUTSIDE RECORDS SUMMARY | 2025-04-03 17:48 | XMS_ITS | Encounter Summary ---
Author Organization [facility] Address [address] [place] [address] Care Team Providers Care Police Superintendent Name Role Phone Areli Gurrola MD Primary Care Provider Encounter Details Date Type Department Care Team (Latest Contact Info) Description 10/11/2005 Outpatient Historical [facility] [address] [place] [address] Trell York MD [address] [place] [phone] Dysthymic Disorder (Primary Dx); Lumbago Social History Tobacco Use Types Packs/Day Years Used Date Smoking Tobacco: Never Assessed Comments Unknown Sex and Gender Information Value Date Recorded Sex Assigned at Not on file Legal Sex Female 3:40 AM CANAL STRUCTURE OPERATOR Gender Identity Not on file Sexual [...] documented as of this encounter Care Teams Police Superintendent Relationship Specialty Start Date End Date Areli Gurrola MD [address] [facility] [place] [place] [address] PCP - General Specialist 08/12/19 documented as of this encounter
--- OUTSIDE RECORDS SUMMARY | 2025-04-03 17:48 | XMS_ITS | Encounter Summary ---
Author Organization [facility] Address [address] [place] [address] Care Team Providers Care Bid Clerk Name Role Phone Areli Gurrola MD Primary Care Provider Encounter Details Date Type Department Care Team (Latest Contact Info) Description 07/26/1998 Outpatient Historical [facility] Charli Perez MD NO ADDRESS ON FILE Other specified aftercare following surgery (Primary Dx) Social History Tobacco Use Types Packs/Day Years Used Date Smoking Tobacco: Never Assessed Comments Unknown Sex and Gender Information Value Date Recorded Sex Assigned at Not on file Legal Sex Female 3:40 AM MARKET DEVELOPMENT MANAGER Gender Identity Not on file [...] documented as of this encounter Care Teams Bid Clerk Relationship Specialty Start Date End Date Areli Gurrola MD [address] [place] [address] PCP - General Specialist 08/12/19 documented as of this encounter
--- OUTSIDE RECORDS SUMMARY | 2025-04-03 17:48 | XMS_ITS | Encounter Summary ---
Author Organization [facility] Address [address] [place] [address] Care Team Providers Care Provider Service Representative Name Role Phone Areli Gurrola [...] on file Legal Sex Female 3:40 AM DISTRIBUTION COORDINATOR Gender Identity Not on file Sexual [...] documented as of this encounter Care Teams Provider Service Representative Relationship Specialty Start Date End Date Areli Gurrola MD [address] [place] [address] PCP - General Specialist 08/12/19 documented as of this encounter
--- OUTSIDE RECORDS SUMMARY | 2025-04-03 17:48 | XMS_ITS | Encounter Summary ---
Author Organization [facility] Address [address] [place] [address] Care Team Providers Care Paint Striping Machine Operator Name Role Phone Areli Gurrola MD Primary Care Provider Encounter Details Date Type Department Care Team (Latest Contact Info) Description 04/11/2006 Outpatient Historical [facility] [address] [place] [address] Trell York MD [address] [place] [phone] Unspecified Essential Hypertension (Primary Dx); Dysthymic Disorder; Insomnia, Unspecified; Mononeuritis of Unspecified Site Social History Tobacco Use Types Packs/Day Years Used Date Smoking Tobacco: Never Assessed Comments Unknown Sex and Gender Information Value Date Recorded Sex Assigned at Not on file Legal Sex Female 3:40 AM RISK ASSESSOR Gender Identity Not on file Sexual [...] documented as of this encounter Care Teams Paint Striping Machine Operator Relationship Specialty Start Date End Date Areli Gurrola MD [address] [facility] [place] [address] PCP - General Specialist 08/12/19 documented as of this encounter
--- OUTSIDE RECORDS SUMMARY | 2025-04-03 17:48 | XMS_ITS | Encounter Summary ---
Author Organization [facility] Address [address] [place] [address] Care Team Providers Care Synchronous Motor Assembler Name Role Phone Areli Gurrola MD Primary Care Provider Encounter Details Date Type Department Care Team (Latest Contact Info) Description 09/12/2005 Outpatient Historical [facility] [address] [place] [address] Trell Maria Jr., MD [address] [place] [address] Anxiety State, Unspecified (Primary Dx) Social History Tobacco Use Types Packs/Day Years Used Date Smoking Tobacco: Never Assessed Comments Unknown Sex and Gender Information Value Date Recorded Sex Assigned at Not on file Legal Sex Female 3:40 AM PRECISION AGRICULTURE SPECIALIST Gender Identity Not on file Sexual [...] documented as of this encounter Care Teams Synchronous Motor Assembler Relationship Specialty Start Date End Date Areli Gurrola MD [address] [place] [address] PCP - General Specialist 08/12/19 documented as of this encounter
--- OUTSIDE RECORDS SUMMARY | 2025-04-03 17:48 | XMS_ITS | Encounter Summary ---
Author Organization [facility] Address [address] [place] [address] Care Team Providers Care Shearing Supervisor Name Role Phone Areli Gurrola MD [...] documented as of this encounter Care Teams Shearing Supervisor Relationship Specialty Start Date End Date Areli Gurrola MD [address] [place] [address] PCP - General Specialist 08/12/19 documented as of this encounter
--- OUTSIDE RECORDS SUMMARY | 2025-04-03 17:48 | XMS_ITS | Encounter Summary ---
Author Organization [facility] Address [address] [place] [address] Care Team Providers Care Tanbark Peeler Name Role Phone Areli Gurrola MD Primary Care Provider Encounter Details Date Type Department Care Team (Latest Contact Info) Description 06/04/1998 Outpatient Historical [facility] Charli Perez MD NO ADDRESS ON FILE Open wound of forehead (Primary Dx) Social History Tobacco Use Types Packs/Day Years Used Date Smoking Tobacco: Never Assessed Comments Unknown Sex and Gender Information Value Date Recorded Sex Assigned at Not on file Legal Sex Female 3:40 AM DIRECTOR INSTRUMENTATION Gender Identity Not on file Sexual Orientation [...] documented as of this encounter Care Teams Tanbark Peeler Relationship Specialty Start Date End Date Areli Gurrola MD [address] [place] [address] PCP - General Specialist 08/12/19 documented as of this encounter
--- OUTSIDE RECORDS SUMMARY | 2025-04-03 17:48 | XMS_ITS | Encounter Summary ---
Author Organization [facility] Address [address] [place] [address] Care Team Providers Care Supervisor Grips Name Role Phone Areli Gurrola MD Primary Care Provider Encounter Details Date Type Department Care Team (Latest Contact Info) Description 02/14/1999 Outpatient Historical [facility] [address] [place] [address] [place], Gibran Lynn MD [address] [place] [address] Sprain and strain of other specified sites of shoulder and upper arm (Primary Dx) Social History Tobacco Use Types Packs/Day Years Used Date Smoking Tobacco: Never Assessed Comments Unknown Sex and Gender Information Value Date Recorded Sex Assigned at Not on file Legal Sex Female 3:40 AM AUTOMOBILE DETAILER Gender Identity Not on file Sexual Orientation [...] as of this encounter Care Teams Supervisor Grips Relationship Specialty Start Date End Date Areli Gurrola MD [address] [place] [address] PCP - General Specialist 08/12/19 documented as of this encounter
--- OUTSIDE RECORDS SUMMARY | 2025-04-03 17:48 | XMS_ITS | Encounter Summary ---
Author Organization [facility] Address [address] [place] [address] Care Team Providers Care Cafe Server Name Role Phone Areli Gurrola MD Primary Care Provider Encounter Details Date Type Department Care Team (Latest Contact Info) Description 03/06/2005 Outpatient Historical [facility] [address] [place] [address] Trell York MD [address] [place] [phone] DENTAL DISORDER NOS (Primary Dx); CERVICALGIA; LUMBAGO; DYSTHYMIC DISORDER Social History Tobacco Use Types Packs/Day Years Used Date Smoking Tobacco: Never Assessed Comments Unknown Sex and Gender Information Value Date Recorded Sex Assigned at Not on file Legal Sex Female 3:40 AM ATHLETIC SHOE DESIGNER Gender Identity Not on file Sexual [...] documented as of this encounter Care Teams Cafe Server Relationship Specialty Start Date End Date Areli Gurrola MD [address] [facility] [place] [address] PCP - General Specialist 08/12/19 documented as of this encounter
--- OUTSIDE RECORDS SUMMARY | 2025-04-03 17:48 | XMS_ITS | Encounter Summary ---
Author Organization [facility] Address [address] [place] [address] Care Team Providers Care Automotive Collision Repair Instructor Name Role Phone Areli Gurrola MD Primary Care Provider Encounter Details Date Type Department Care Team (Late st Contact Info) Description 04/11/1999 Outpatient Historical [facility] Social History Tobacco Use Types Packs/Day Years Used Date Smoking Tobacco: Never Assessed Comments Unknown Sex and Gender Information Value Date Recorded Sex Assigned at Not on file Legal Sex Female 3:40 AM HORSE FARM MANAGER Gender Identity Not on file Sexual Orientation Not on file documented as of this encounter Plan of Treatment Not on file documented as of this encounter Visit Diagnoses Not on filedocumented in this encounter Additional Health Concerns Infection Onset Date Last Indicated Resolved Time R/O COVID-19 01/31/2020 01/31/2020 02/02/2020 10:3 2 AM CDT documented as of this encounter Care Teams Automotive Collision Repair Instructor Relationship Specialty Start Date End Date Areli Gurrola MD [address] [place] [address] PCP - General Specialist 08/12/19 documented as of this encounter
--- OUTSIDE RECORDS SUMMARY | 2025-04-03 17:48 | XMS_ITS | Encounter Summary ---
Author Organization [facility] Address [address] [place] [address] Care Team Providers Care Bed Spring Maker Name Role Phone Areli Gurrola MD Primary Care Provider Encounter Details Date Type Department Care Team (Latest Contact Info) Description 02/05/2003 Outpatient Historical [facility] [address] [place] [address] Gordon Cabral MD NO ADDRESS ON FILE SURGERY FOLLOWUP, UNSPEC (Primary Dx) Social History Tobacco Use Types Packs/Day Years Used Date Smoking Tobacco: Never Assessed Comments Unknown Sex and Gender Information Value Date Recorded Sex Assigned at Not on file Legal Sex Female 3:40 AM SKID WORKER Gender Identity Not on file Sexual [...] documented as of this encounter Care Teams Bed Spring Maker Relationship Specialty Start Date End Date Areli Gurrola MD [address] [facility] [place] [address] PCP - General Specialist 08/12/19 documented as of this encounter
--- OUTSIDE RECORDS SUMMARY | 2025-04-03 17:48 | XMS_ITS | Encounter Summary ---
Author Organization [facility] Address [address] [place] [address] Care Team Providers Care Java Manager Name Role Phone Areli Gurrola MD Primary Care Provider Encounter Details Date Type Department Care Team (Latest Contact Info) Description 11/20/2001 Outpatient Historical [facility] [address] [place] [address] Trell York MD [address] [place] [phone] LUMBAGO (Primary Dx); SEBACEOUS CYST Social History [...] as of this encounter Care Teams Java Manager Relationship Specialty Start Date End Date Areli Gurrola MD [address] [place] [address] PCP - General Specialist 08/12/19 documented as of this encounter
--- OUTSIDE RECORDS SUMMARY | 2025-04-03 17:48 | XMS_ITS | Encounter Summary ---
Author Organization [facility] Address [address] [place] [address] Care Team Providers Care Drafter Plumbing Name Role Phone Areli Gurrola MD Primary Care Provider Encounter Details Date Type Department Care Team (Latest Contact Info) Description 07/07/2004 Outpatient Historical [facility] Imaging Services [place] [address] [place] [address] Trell York MD [address] [place] [phone] CERVICAL DISC DISPLACMNT (Primary Dx) Social History Tobacco Use Types Packs/Day Years Used Date Smoking Tobacco: Never Assessed Comments Unknown Sex and Gender Information Value Date Recorded Sex Assigned at Not on file Legal Sex Female 3:40 AM HOGSHEAD INSPECTOR Gender Identity Not on file Sexual [...] as of this encounter Care Teams Drafter Plumbing Relationship Specialty Start Date End Date Areli Gurrola MD [address] [facility] [place] [address] PCP - General Specialist 08/12/19 documented as of this encounter
--- OUTSIDE RECORDS SUMMARY | 2025-04-03 17:48 | XMS_ITS | Encounter Summary ---
Author Organization [facility] Address [address] [place] [address] Care Team Providers Care Tool Engineer Name Role Phone Areli Gurrola MD Primary Care Provider Encounter Details Date Type Department Care Team (Latest Contact Info) Description 07/19/1998 Outpatient Historical [facility] Charli Perez MD NO ADDRESS ON FILE Scar condition and fibrosis of skin (Primary Dx) Social History Tobacco Use Types Packs/Day Years Used Date Smoking Tobacco: Never Assessed Comments Unknown Sex and Gender Information Value Date Recorded Sex Assigned at Not on file Legal Sex Female 3:40 AM CASKET COVERER Gender Identity Not on file Sexual [...] as of this encounter Care Teams Tool Engineer Relationship Specialty Start Date End Date Areli Gurrola MD [address] [place] [address] PCP - General Specialist 08/12/19 documented as of this encounter
--- OUTSIDE RECORDS SUMMARY | 2025-04-03 17:48 | XMS_ITS | Encounter Summary ---
Author Organization [employer] Address [address] [place] [address] Care Team Providers Care Institutional Research Director Name Role Phone Areli Gurrola MD Primary Care Provider Encounter Details Date Type Department Care Team (Late st Contact Info) Description 04/07/1999 Outpatient Historical [facility] Social History Tobacco Use Types Packs/Day Years Used Date Smoking Tobacco: Never Assessed Comments Unknown Sex and Gender Information Value Date Recorded Sex Assigned at Not on file Legal Sex Female 3:40 AM TOXICOLOGIST Gender Identity Not on file Sexual Orientation Not on file documented as of this encounter Plan of Treatment Not on file documented as of this encounter Visit Diagnoses Not on filedocumented in this encounter Additional Health Concerns Infection Onset Date Last Indicated Resolved Time R/O COVID-19 01/31/2020 01/31/2020 02/02/2020 10:3 2 AM CDT documented as of this encounter Care Teams Institutional Research Director Relationship Specialty Start Date End Date Areli Gurrola MD [address] [place] [address] PCP - General Specialist 08/12/19 documented as of this encounter
--- OUTSIDE RECORDS SUMMARY | 2025-04-03 17:48 | XMS_ITS | Encounter Summary ---
Author Organization [facility] Address [address] [place] [address] Care Team Providers Care High School Science Tutor Name Role Phone Areli Gurrola MD Primary Care Provider Encounter Details Date Type Department Care Team (Latest Contact Info) Description 05/03/1999 Outpatient Historical [facility] [place] [place] [address] [place], Gibran Lynn MD [address] [place] [address] Cramp of limb (Primary Dx); Contracture of hand joint Social History Tobacco Use Types Packs/Day Years Used Date Smoking Tobacco: Never Assessed Comments Unknown Sex and Gender Information Value Date Recorded Sex Assigned at Not on file Legal Sex Female 3:40 AM PHILOSOPHY SPECIALIST Gender Identity Not on file Sexual [...] as of this encounter Care Teams High School Science Tutor Relationship Specialty Start Date End Date Areli Gurrola MD [address] [place] [address] PCP - General Specialist 08/12/19 documented as of this encounter
--- OUTSIDE RECORDS SUMMARY | 2025-04-03 17:48 | XMS_ITS | Encounter Summary ---
Author Organization [facility] Address [address] [place] [address] Care Team Providers Care Travel Nurse Name Role Phone Areli Gurrola MD Primary Care Provider Encounter Details Date Type Department Care Team (Latest Contact Info) Description 10/09/2002 Outpatient Historical [facility] Imaging [facility] [address] [place] [address] Gordon Cabral MD NO ADDRESS ON FILE Excessive menstruation (Primary Dx) Social History Tobacco Use Types Packs/Day Years Used Date Smoking Tobacco: Never Assessed Comments Unknown Sex and Gender Information Value Date Recorded Sex Assigned at Not on file Legal Sex Female 3:40 AM DRINK MIXER Gender Identity Not on file Sexual [...] documented as of this encounter Care Teams Travel Nurse Relationship Specialty Start Date End Date Areli Gurrola MD [address] [place] [address] PCP - General Specialist 08/12/19 documented as of this encounter
--- OUTSIDE RECORDS SUMMARY | 2025-04-03 17:48 | XMS_ITS | Encounter Summary ---
Author Organization [facility] Address [address] [place] [address] Care Team Providers Care Business Systems Manager Name Role Phone Areli Gurrola MD Primary Care Provider Encounter Details Date Type Department Care Team (Latest Contact Info) Description 11/25/2002 Outpatient [facility] [address] [place] [address] Gordon Cabral MD NO ADDRESS ON FILE DYSMENORRHEA (Primary Dx) Social History Tobacco Use Types Packs/Day Years Used Date Smoking Tobacco: Never Assessed Comments Unknown Sex and Gender Information Value Date Recorded Sex Assigned at Not on file Legal Sex Female 3:40 AM SHOP SERVICE TECHNICIAN Gender Identity Not on file [...] as of this encounter Care Teams Business Systems Manager Relationship Specialty Start Date End Date Areli Gurrola MD [address] [facility] [place] [address] PCP - General Specialist 08/12/19 documented as of this encounter
--- OUTSIDE RECORDS SUMMARY | 2025-04-03 17:48 | XMS_ITS | Encounter Summary ---
Author Organization [facility] Address [address] [place] [address] Care Team Providers Care Manager It Training Name Role Phone Areli Gurrola MD Primary Care Provider Encounter Details Date Type Department Care Team (Latest Contact Info) Description 05/11/2003 Outpatient Historical [facility] [address] [place] [address] Trell York MD [address] [place] [phone] CERVICALGIA (Primary Dx) Social History Tobacco Use [...] as of this encounter Care Teams Manager It Training Relationship Specialty Start Date End Date Areli Gurrola MD [address] [facility] [place] [address] PCP - General Specialist 08/12/19 documented as of this encounter
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
--- OUTSIDE RECORDS SUMMARY | 2025-04-03 17:48 | XMS_ITS | Encounter Summary ---
Author Organization [facility] Address [address] [place] [address] Care Team Providers Care Service Order Dispatcher Chief Name Role Phone Areli Gurrola MD Primary Care Provider Encounter Details Date Type Department Care Team (Latest Contact Info) Description 07/16/2001 Outpatient Historical [facility] [address] [place] [address] Trell York MD [address] [place] [phone] SWELLING OF LIMB (Primary Dx) Social History Tobacco Use Types Packs/Day Years Used Date Smoking Tobacco: Never Assessed Comments Unknown Sex and Gender Information Value Date Recorded Sex Assigned at Not on file Legal Sex Female 3:40 AM CHOCOLATE FINISHER Gender Identity Not on file Sexual [...] as of this encounter Care Teams Service Order Dispatcher Chief Relationship Specialty Start Date End Date Areli Gurrola MD [address] [facility] [place] [address] PCP - General Specialist 08/12/19 documented as of this encounter
--- OUTSIDE RECORDS SUMMARY | 2025-04-03 17:48 | XMS_ITS | Encounter Summary ---
Author Organization [facility] Address [address] [place] [address] Care Team Providers Care Dietitian Therapeutic Name Role Phone Areli Gurrola MD Primary Care Provider Encounter Details Date Type Department Care Team (Latest Contact Info) Description 07/06/2004 Outpatient Historical [facility] [address] [place] [address] Trell Yokr MD [address] [place] [phone] DYSTHYMIC DISORDER (Primary Dx); BACKACHE NOS; CERVICALGIA Social History Tobacco Use Types Packs/Day Years Used Date Smoking Tobacco: Never Assessed Comments Unknown Sex and Gender Information Value Date Recorded Sex Assigned at Not on file Legal Sex Female 3:40 AM READING PROFESSOR Gender Identity Not on file Sexual [...] documented as of this encounter Care Teams Dietitian Therapeutic Relationship Specialty Start Date End Date Areli Gurrola MD [address] [facility] [place] [address] PCP - General Specialist 08/12/19 documented as of this encounter
--- OUTSIDE RECORDS SUMMARY | 2025-04-03 17:48 | XMS_ITS | Patient Health Record ---
Author Organization [facility] Address [address] [place] [address] Care Team Providers Care Reimbursement Consultant Name Role Phone Joseph Lewis MD Primary Care Provider Zane Joiner Unavailable [phone] ELROY BOOTHE Unavailable Unavailable Reason For Referral Reason eval and treat Diagnosis 1 Radiculopathy, lumba r region (M54.16) Referring Provider First Name Aida Referring Provider Last Name Carlton Referring Provider Speciality Physician Java Lead Referred Organization [facility] Referred Provider Tam Fairchild Referred Address [address] [facility],[address], Referred Provider Specialty Intervention al Pain Medicine [...] drug interaction check* Fluticasone Furoate 27.5mcg/1spray Nasal Polaris Use 2 spray(s) in each nostril daily 05/28/2008 Active Immunizations Vaccine Route Administration Date Status Comme nts Influenza (whole), CPT 72375 Inactive Unknown 10/15/2018 Administered Social History Social [...] Severe recurrent major depression without psychotic features (21512404) Major depressive disorder, 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.2) Active confirmed Problem Severe recurrent major depression with psychotic features (77664428) Major depressive disorder, recurrent, 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) Active confirmed Problem Adjustment disorder with mixed disturbance of emotions AND conduct (79938628) Adjustment disorder with mixed disturbance of emotions and conduct (F43.25) Active confirmed Problem Borderline personality disorder (61534353) Borderline personality disorder (F60.3) Active confirmed Problem Lumbar radiculopathy (458800627) Radiculopathy, lumbar region (M54.16) Active confirmed Problem History of psychiatric disorder (294437856) Personal history of other mental and behavioral disorders (Z86.59) Active confirmed Problem Alcohol abuse (14246175) Alcohol abuse (F10.10) Active confirmed Problem Major depression, single episode (03553655) Depression, major (F32.9) Active confirmed Problem History of methamphetamine abuse (situation) (15527810097908564 ) 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 confirmed Problem Chronic pain (54332011) Chronic pain (G89.29) Active confirmed Problem Polysubstance abuse (141246296) Polysubstance abuse (F19.10) Active confirmed Problem Cannabis abuse (10846277) Cannabis abuse (F12.10) Active confirmed Problem Low back pain (347545594) Low back pain (724.2) 009 Active confirmed [id number] 911- Problem Fibromyalgia (872599416) Fibromyalgia (729.1) 009 Problem resolved confirmed [id number] 911- Plan Of Treatment No Information Insurance Providers Payer Name Payer Address Payer Phone Subscriber Number Group Number Insured Name Patient Relationship to Insured Coverage Start Date Coverage End Date [facility] Commercial [address] [address] [place] [address] [id number] Kay Gamboa Self - patient is the insured [place] [address] [place] [address] [id number] Kay Gamboa Self - patient is the insured Medical (General) History Surgical History Surgery Date(Month/Year) Carpal tunnel surgery Tonsillectomy Laminectomy Hysterectomy Gallbladder surgery Biopsy of Bone Marrow Appendectomy
--- OUTSIDE RECORDS SUMMARY | 2025-04-03 17:48 | XMS_ITS | Encounter Summary ---
Author Organization [facility] Address [address] [place] [address] Care Team Providers Care Ad Compositor Name Role Phone Areli Gurrola MD Primary Care Provider Encounter Details Date Type Department Care Team (Late st Contact Info) Description 04/07/1999 Outpatient Historical [facility] Social History Tobacco Use Types Packs/Day Years Used Date Smoking Tobacco: Never Assessed Comments Unknown Sex and Gender Information Value Date Recorded Sex Assigned at Not on file Legal Sex Female 3:40 AM CATERER'S AIDE Gender Identity Not on file Sexual Orientation Not on file documented as of this encounter Plan of Treatment Not on file documented as of this encounter Visit Diagnoses Not on filedocumented in this encounter Additional Health Concerns Infection Onset Date Last Indicated Resolved Time R/O COVID-19 01/31/2020 01/31/2020 02/02/2020 10:3 2 AM CDT documented as of this encounter Care Teams Ad Compositor Relationship Specialty Start Date End Date Areli Gurrola MD [address] [place] [address] PCP - General Specialist 08/12/19 documented as of this encounter
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
--- OUTSIDE RECORDS SUMMARY | 2025-04-03 17:48 | XMS_ITS | Encounter Summary ---
Author Organization [facility] Address [address] [place] [address] Care Team Providers Care Hardwood Floor Installer Name Role Phone Areli Gurrola MD Primary Care Provider Encounter Details Date Type Department Care Team (Latest Contact Info) Description 02/14/1999 Outpatient Historical [facility] Imaging Services-[facility] [place] [address] [place] [address] AlumnoGibran MD [address] [place] [address] Lumbago (Primary Dx) Social History Tobacco Use Types Packs/Day Years Used Date Smoking Tobacco: Never Assessed Comments Unknown Sex and Gender Information Value Date Recorded Sex Assigned at Not on file Legal Sex Female 3:40 AM SENIOR TAX MANAGER Gender Identity Not on file Sexual Orientation Not on file documented as of this encounter Plan of Treatment Not on file documented as of this encounter Visit Diagnoses Diagnosis Lumbago- Primary documented in this encounter Additional Health Concerns Infection Onset Date Last Indicated Resolved Time R/O COVID-19 01/31/2020 01/31/2020 02/02/2020 10:3 2 AM CDT documented as of this encounter Care Teams Hardwood Floor Installer Relationship Specialty Start Date End Date Areli Gurrola MD [address] [place] [address] PCP - General Specialist 08/12/19 documented as of this encounter
--- OUTSIDE RECORDS SUMMARY | 2025-04-03 17:48 | XMS_ITS | Encounter Summary ---
Author Organization [facility] Address [address] [facility] Attn: [place] [address] Care Team Providers Care Transfer Clerk Name Role Phone Areli Gurrola MD Primary Care Provider Encounter Details Date Type Department Care Team (Late st Contact Info) Description 07/30/2001 Outpatient Historical [place], Trell Pascual MD [address] [place] [phone] Social History Tobacco Use Types Packs/Day Years Used Date Smoking Tobacco: Never Assessed Comments Unknown Sex and Gender Information Value Date Recorded Sex Assigned at Not on file Legal Sex Female 3:40 AM SEAMLESS TUBE MILL OPERATOR Gender Identity Not on file Sexual Orientation Not on file documented as of this encounter Plan of Treatment Not on file documented as of this encounter Visit Diagnoses Not on filedocumented in this encounter Additional Health Concerns Infection Onset Date Last Indicated Resolved Time R/O COVID-19 01/31/2020 01/31/2020 02/02/2020 10:3 2 AM CDT documented as of this encounter Care Teams Transfer Clerk Relationship Specialty Start Date End Date Areli Gurrola MD [address] [place] [address] PCP - General Specialist 08/12/19 documented as of this encounter
--- OUTSIDE RECORDS SUMMARY | 2025-04-03 17:48 | XMS_ITS | Encounter Summary ---
Author Organization [facility] Address [address] [place] [address] Care Team Providers Care Production Maintenance Technician Name Role Phone Areli Gurrola MD Primary Care Provider Encounter Details Date Type Department Care Team (Latest Contact Info) Description 10/20/2002 Outpatient Historical [facility] [address] [place] [address] Gordon Cabral MD NO ADDRESS ON FILE PREOP EXAM OTHER SPECIFIED (Primary Dx) Social History Tobacco Use Types Packs/Day Years Used Date Smoking Tobacco: Never Assessed Comments Unknown Sex and Gender Information Value Date Recorded Sex Assigned at Not on file Legal Sex Female 3:40 AM PV DESIGN AND INSTALLATION TECHNICIAN Gender Identity Not on file Sexual [...] as of this encounter Care Teams Production Maintenance Technician Relationship Specialty Start Date End Date Areli Gurrola MD [address] [place] [address] PCP - General Specialist 08/12/19 documented as of this encounter
--- OUTSIDE RECORDS SUMMARY | 2025-04-03 17:48 | XMS_ITS | Encounter Summary ---
Author Organization [facility] Address [address] [place] [address] Care Team Providers Care Medical Aides Teacher Name Role Phone Areli Gurrola MD Primary Care Provider Encounter Details Date Type Department Care Team (Late st Contact Info) Description 03/31/1999 Outpatient Historical [facility] Social History Tobacco Use Types Packs/Day Years Used Date Smoking Tobacco: Never Assessed Comments Unknown Sex and Gender Information Value Date Recorded Sex Assigned at Not on file Legal Sex Female 3:40 AM TIRE MOLD TESTER Gender Identity Not on file Sexual Orientation Not on file documented as of this encounter Plan of Treatment Not on file documented as of this encounter Visit Diagnoses Not on filedocumented in this encounter Additional Health Concerns Infection Onset Date Last Indicated Resolved Time R/O COVID-19 01/31/2020 01/31/2020 02/02/2020 10:3 2 AM CDT documented as of this encounter Care Teams Medical Aides Teacher Relationship Specialty Start Date End Date Areli Gurrola MD [address] [place] [address] PCP - General Specialist 08/12/19 documented as of this encounter
--- OUTSIDE RECORDS SUMMARY | 2025-04-03 17:48 | XMS_ITS | Encounter Summary ---
Author Organization [facility] Address [address] [place] [address] Care Team Providers Care Paper Roll Machine Operator Name Role Phone Areli Gurrola MD Primary Care Provider Encounter Details Date Type Department Care Team (Latest Contact Info) Description 04/25/2004 Outpatient Historical [facility] [address] [place] [address] Trell York MD [address] [place] [phone] DYSTHYMIC DISORDER (Primary Dx); LUMBAGO; Pain in limb; Inflamed seborr keratos Social History Tobacco Use Types Packs/Day Years Used Date Smoking Tobacco: Never Assessed Comments Unknown Sex and Gender Information Value Date Recorded Sex Assigned at Not on file Legal Sex Female 3:40 AM FINANCE LECTURER Gender Identity Not on file Sexual Orientation [...] as of this encounter Care Teams Paper Roll Machine Operator Relationship Specialty Start Date End Date Areli Gurrola MD [address] [facility] [address] PCP - General Specialist 08/12/19 documented as of this encounter
--- OUTSIDE RECORDS SUMMARY | 2025-04-03 17:48 | XMS_ITS | Encounter Summary ---
Author Organization [facility] Address [address] [place] [address] Care Team Providers Care Cover Assembler Name Role Phone Areli Gurrola MD Primary Care Provider Encounter Details Date Type Department Care Team (Latest Contact Info) Description 12/18/2002 Outpatient Historical [facility] [id number] [place] [address] Gordon Cabral MD NO ADDRESS ON FILE PREOP EXAM OTHER SPECIFIED (Primary Dx) Social History Tobacco Use Types Packs/Day Years Used Date Smoking Tobacco: Never Assessed Comments Unknown Sex and Gender Information Value Date Recorded Sex Assigned at Not on file Legal Sex Female 3:40 AM SCHOOL VOCATIONAL EDUCATOR Gender Identity Not on file Sexual Orientation [...] documented as of this encounter Care Teams Cover Assembler Relationship Specialty Start Date End Date Areli Gurrola MD [address] [place] [address] PCP - General Specialist 08/12/19 documented as of this encounter
--- OUTSIDE RECORDS SUMMARY | 2025-04-03 17:48 | XMS_ITS | Encounter Summary ---
Author Organization [facility] Address [address] [place] [address] Care Team Providers Care Time Piece Repairer Name Role Phone Areli Gurrola MD Primary Care Provider Encounter Details Date Type Department Care Team (Latest Contact Info) Description 04/21/2003 Outpatient [facility] [address] [place] [address] Gordon Cabral MD NO ADDRESS ON FILE URIN TRACT INFECTION NOS (Primary Dx) Social History Tobacco Use Types Packs/Day Years Used Date Smoking Tobacco: Never Assessed Comments Unknown Sex and Gender Information Value Date Recorded Sex Assigned at Not on file Legal Sex Female 3:40 AM KILN DOOR BUILDER Gender Identity Not on file Sexual [...] as of this encounter Care Teams Time Piece Repairer Relationship Specialty Start Date End Date Areli Gurrola MD [address] [place] [address] PCP - General Specialist 08/12/19 documented as of this encounter
--- OUTSIDE RECORDS SUMMARY | 2025-04-03 17:48 | XMS_ITS | Encounter Summary ---
Author Organization [facility] Address [address] [place] [address] Care Team Providers Care Environmental Assistant Name Role Phone Areli Gurrola MD Primary Care Provider Encounter Details Date Type Department Care Team (Latest Contact Info) Description 10/28/2002 Outpatient Historical [facility] [address] [place] [address] Gordon Cabral MD NO ADDRESS ON FILE SURGERY FOLLOWUP, UNSPEC (Primary Dx) Social History Tobacco Use Types Packs/Day Years Used Date Smoking Tobacco: Never Assessed Comments Unknown Sex and Gender Information Value Date Recorded Sex Assigned at Not on file Legal Sex Female 3:40 AM AUTOMOTIVE DETAILER Gender Identity Not on file Sexual [...] as of this encounter Care Teams Environmental Assistant Relationship Specialty Start Date End Date Areli Gurrola MD [address] [facility] [place] [address] PCP - General Specialist 08/12/19 documented as of this encounter
--- OUTSIDE RECORDS SUMMARY | 2025-04-03 17:48 | XMS_ITS | Encounter Summary ---
Author Organization [facility] Address [address] [place] [address] Care Team Providers Care Soaping Machine Back Tender Name Role Phone Areli Gurrola MD Primary Care Provider Encounter Details Date Type Department Care Team (Late st Contact Info) Description 03/31/1999 Outpatient Historical [facility] Social History Tobacco Use Types Packs/Day Years Used Date Smoking Tobacco: Never Assessed Comments Unknown Sex and Gender Information Value Date Recorded Sex Assigned at Not on file Legal Sex Female 3:40 AM ACTUARY CLERK Gender Identity Not on file Sexual Orientation Not on file documented as of this encounter Plan of Treatment Not on file documented as of this encounter Visit Diagnoses Not on filedocumented in this encounter Additional Health Concerns Infection Onset Date Last Indicated Resolved Time R/O COVID-19 01/31/2020 01/31/2020 02/02/2020 10:3 2 AM CDT documented as of this encounter Care Teams Soaping Machine Back Tender Relationship Specialty Start Date End Date Areli Gurrola MD [address] [place] [address] PCP - General Specialist 08/12/19 documented as of this encounter
--- OUTSIDE RECORDS SUMMARY | 2025-04-03 17:48 | XMS_ITS | Encounter Summary ---
Author Organization [facility] Address [address] [place] [address] Care Team Providers Care Batch Maker Name Role Phone Areli Gurrola MD Primary Care Provider Encounter Details Date Type Department Care Team (Late st Contact Info) Description 03/16/1999 Outpatient Historical HIS [facility] Social History Tobacco Use Types Packs/Day Years Used Date Smoking Tobacco: Never Assessed Comments Unknown Sex and Gender Information Value Date Recorded Sex Assigned at Not on file Legal Sex Female 3:40 AM MUTUAL FUND MANAGER Gender Identity Not on file Sexual Orientation Not on file documented as of this encounter Plan of Treatment Not on file documented as of this encounter Visit Diagnoses Not on filedocumented in this encounter Additional Health Concerns Infection Onset Date Last Indicated Resolved Time R/O COVID-19 01/31/2020 01/31/2020 02/02/2020 10:3 2 AM CDT documented as of this encounter Care Teams Batch Maker Relationship Specialty Start Date End Date Areli Gurrola MD [address] [place] [address] PCP - General Specialist 08/12/19 documented as of this encounter
--- OUTSIDE RECORDS SUMMARY | 2025-04-03 17:48 | XMS_ITS | Encounter Summary ---
Author Organization [facility] Address [address] [place] [address] Care Team Providers Care Metal Model Maker Name Role Phone Areli Gurrola MD Primary Care Provider Encounter Details Date Type Department Care Team (Latest Contact Info) Description 09/14/2004 Outpatient Historical [facility] [address] [place] [address] Trell York MD [address] [place] [phone] DYSTHYMIC DISORDER (Primary Dx); CERVICALGIA; LUMBAGO Social History Tobacco Use Types Packs/Day Years Used Date Smoking Tobacco: Never Assessed Comments Unknown Sex and Gender Information Value Date Recorded Sex Assigned at Not on file Legal Sex Female 3:40 AM SUPERVISOR TOY PARTS FORMER Gender Identity Not on file Sexual Orientation [...] as of this encounter Care Teams Metal Model Maker Relationship Specialty Start Date End Date Areli Gurrola MD [address] [facility] [place] [address] PCP - General Specialist 08/12/19 documented as of this encounter
--- OUTSIDE RECORDS SUMMARY | 2025-04-03 17:48 | XMS_ITS | Encounter Summary ---
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
--- OUTSIDE RECORDS SUMMARY | 2025-04-03 17:48 | XMS_ITS | Encounter Summary ---
Author Organization [facility] Address [address] [place] [address] Care Team Providers Care Human Services Assistant Name Role Phone Areli Gurrola MD Primary Care Provider Encounter Details Date Type Department Care Team (Latest Contact Info) Description 06/07/1998 Outpatient Historical [facility] Charli Perez MD NO ADDRESS ON FILE Open wound of forehead (Primary Dx) Social History Tobacco Use Types Packs/Day Years Used Date Smoking Tobacco: Never Assessed Comments Unknown Sex and Gender Information Value Date Recorded Sex Assigned at Not on file 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
--- OUTSIDE RECORDS SUMMARY | 2025-04-03 17:48 | XMS_ITS | Encounter Summary ---
Author Organization [facility] Address [address] [place] [address] Care Team Providers Care Financial Controller Name Role Phone Areli Gurrola MD Primary Care Provider Encounter Details Date Type Department Care Team (Latest Contact Info) Description 10/21/2001 Outpatient Historical [facility] [address] [place] [address] Trell York MD [address] [place] [phone] NEUROTIC DEPRESSION (Primary Dx); LUMBAGO; ACUTE LARYNGOTRACH W OBSTR Social History Tobacco Use Types Packs/Day Years Used Date Smoking Tobacco: Never Assessed Comments Unknown Sex and Gender Information Value Date Recorded Sex Assigned at Not on file Legal Sex Female 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
--- OUTSIDE RECORDS SUMMARY | 2025-04-03 17:48 | XMS_ITS | Encounter Summary ---
Author Organization [facility] Address [address] [place] [address] Care Team Providers Care Neurophysiologist Name Role Phone Areli Gurrola MD Primary Care Provider Encounter Details Date Type Department Care Team (Latest Contact Info) Description 12/04/2001 Outpatient [facility] [address] [place] [address] Trell York MD [address] [place] [phone] ACUTE BRONCHITIS (Primary Dx); COUGH Social History Tobacco Use Types Packs/Day Years Used Date Smoking Tobacco: Never Assessed Comments Unknown Sex and Gender Information Value Date Recorded Sex Assigned at Not on file Legal Sex Female 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
--- OUTSIDE RECORDS SUMMARY | 2025-04-03 17:48 | XMS_ITS | Encounter Summary ---
Author Organization [facility] Address [address] [place] [address] Care Team Providers Care Vacuum Tank Tender Name Role Phone Areli Gurrola MD Primary Care Provider Encounter Details Date Type Department Care Team (Latest Contact Info) Description 10/16/2002 Outpatient [facility] [address] [place] [address] Gordon Cabral MD NO ADDRESS ON FILE PREOP EXAM OTHER SPECIFIED (Primary Dx); Excessive menstruation Social History Tobacco Use Types Packs/Day Years Used Date Smoking Tobacco: Never Assessed Comments Unknown Sex and Gender Information Value Date Recorded Sex Assigned at Not on file Legal Sex Female 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
--- OUTSIDE RECORDS SUMMARY | 2025-04-03 17:48 | XMS_ITS | Encounter Summary ---
Author Organization [facility] Address [address] [place] [address] Care Team Providers Care Barrel Endshake Adjuster Name Role Phone Areli Gurrola MD Primary Care Provider Encounter Details Date Type Department Care Team (Latest Contact Info) Description 06/26/2003 Outpatient Historical [facility] [address] [place] [address] Jim Matos [place] [address] [address] [place] [address] PRECORDIAL PAIN (Primary Dx) Social History Tobacco Use Types Packs/Day Years Used Date Smoking Tobacco: Never Assessed Comments Unknown Sex and Gender Information Value Date Recorded Sex Assigned at Not on file Legal Sex Female 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
--- OUTSIDE RECORDS SUMMARY | 2025-04-03 17:48 | XMS_ITS | Encounter Summary ---
Author Organization [facility] Address [address] [place] [address] Care Team Providers Care Road Design Engineer Name Role Phone Areli Gurrola MD Primary Care Provider Encounter Details Date Type Department Care Team (Late st Contact Info) Description 10/27/2002 Emergency [facility] Emergency Department [address] [place] [address] Cira Archibald MD NO ADDRESS ON FILE FEMALE GENITAL SYMPTOMS NOS (Primary Dx) Social History Tobacco Use Types Packs/Day Years Used Date Smoking Tobacco: Never Assessed Comments Unknown Sex and Gender Information Value Date Recorded Sex Assigned at Not on file Legal Sex Female 3:40 AM TOBACCO SWEEPER Gender Identity Not on file Sexual Orientation [...] as of this encounter Care Teams Road Design Engineer Relationship Specialty Start Date End Date Areli Gurrola MD [address] [place] [address] PCP - General Specialist 08/12/19 documented as of this encounter
--- OUTSIDE RECORDS SUMMARY | 2025-04-03 17:48 | XMS_ITS | Encounter Summary ---
Author Organization [facility] Address [address] [place] [address] Care Team Providers Care Flour Inspector Name Role Phone Areli Gurrola MD Primary Care Provider Encounter Details Date Type Department Care Team (Latest Contact Info) Description 03/09/1999 Outpatient [facility] [place] [address] Alumno, Gibran Lynn MD [address] [place] [address] Sprain and strain of unspecified site of shoulder and upper arm (Primary Dx); Backache, unspecified Social History Tobacco Use Types Packs/Day Years Used Date Smoking Tobacco: Never Assessed Comments Unknown Sex and Gender Information Value Date Recorded Sex Assigned at Not on file Legal Sex Female 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
--- OUTSIDE RECORDS SUMMARY | 2025-04-03 17:48 | XMS_ITS | Encounter Summary ---
Author Organization [facility] Address [address] [place] [address] Care Team Providers Care Sewing Machine Maintenance Mechanic Name Role Phone Areli Gurrola MD Primary Care Provider Encounter Details Date Type Department Care Team (Latest Contact Info) Description 12/02/2002 Outpatient Historical [facility] [address] [place] [address] Gordon Cabral MD NO ADDRESS ON FILE FEMALE GENITAL SYMPTOMS NOS (Primary Dx) Social History Tobacco Use Types Packs/Day Years Used Date Smoking Tobacco: Never Assessed Comments Unknown Sex and Gender Information Value Date Recorded Sex Assigned at Not on file Legal Sex Female 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
--- OUTSIDE RECORDS SUMMARY | 2025-04-03 17:48 | XMS_ITS | Encounter Summary ---
Author Organization [facility] Address [address] [place] [address] Care Team Providers Care Lamination Assembler Name Role Phone Areli Gurrola MD Primary Care Provider Encounter Details Date Type Department Care Team (Late st Contact Info) Description 05/14/2003 Outpatient Historical [facility] [address] [place] [address] Roman Law, DO [address] [place] [id number] ACUTE SINUSITIS NOS (Primary Dx) Social History Tobacco Use Types Packs/Day Years Used Date Smoking Tobacco: Never Assessed Comments Unknown Sex and Gender Information Value Date Recorded Sex Assigned at Not on file Legal Sex Female 3:40 AM SPICE MILLER Gender Identity Not on file Sexual Orientation [...] End Date Areli Gurrola MD [address] [place] [address] PCP - General Specialist 08/12/19 documented as of this encounter
--- OUTSIDE RECORDS SUMMARY | 2025-04-03 17:48 | XMS_ITS | Encounter Summary ---
Author Organization [facility] Address [address] [place] [address] Care Team Providers Care Rotary Furnace Tender Name Role Phone Areli Gurrola MD Primary Care Provider Encounter Details Date Type Department Care Team (Latest Contact Info) Description 05/20/2003 Outpatient Historical [facility] [address] [place] [address] Trell York MD [address] [place] [phone] ACUTE BRONCHITIS (Primary Dx) Social History Tobacco Use Types Packs/Day Years Used Date Smoking Tobacco: Never Assessed Comments Unknown Sex and Gender Information Value Date Recorded Sex Assigned at Not on file Legal 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 Female 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 Gender Identity Not on file Sexual Orientation Not on file documented as of this encounter Plan of Treatment Not on file documented as of this encounter Visit Diagnoses Diagnosis Acute bronchitis- Primary documented in this encounter Additional Health Concerns Infection Onset Date Last Indicated Resolved Time R/O COVID-19 01/31/2020 01/31/2020 02/02/2020 10:3 2 AM CDT documented as of this encounter Care Teams Rotary Furnace Tender Relationship Specialty Start Date End Date Areli Gurrola MD [address] [facility] [place] [address] PCP - General Specialist 08/12/19 documented as of this encounter
--- OUTSIDE RECORDS SUMMARY | 2025-04-03 17:48 | XMS_ITS | Encounter Summary ---
Author Organization [facility] Address [address] [place] [address] Care Team Providers Care Hand Laminator Name Role Phone Areli Gurrola MD Primary Care Provider Encounter Details Date Type Department Care Team (Latest Contact Info) Description 01/09/2002 Outpatient Historical [facility] [address] [place] [address] Trell York MD [address] [place] [address] HEADACHE (Primary Dx); CERVICALGIA Social History Tobacco Use Types Packs/Day Years Used Date Smoking Tobacco: Never Assessed Comments Unknown Sex and Gender Information Value Date Recorded Sex Assigned at Not on file Legal Sex Female 3:40 AM DIRECTOR OF STRATEGIC PROGRAMS Gender Identity Not on file Sexual Orientation [...] as of this encounter Care Teams Hand Laminator Relationship Specialty Start Date End Date Areli Gurrola MD [address] [place] [address] PCP - General Specialist 08/12/19 documented as of this encounter
--- OUTSIDE RECORDS SUMMARY | 2025-04-03 17:48 | XMS_ITS | Encounter Summary ---
Author Organization [facility] Address [address] [place] [address] Care Team Providers Care Account Executive Software Sales Name Role Phone Areli Gurrola MD Primary Care Provider Encounter Details Date Type Department Care Team (Late st Contact Info) Description 10/30/2002 Emergency [facility] Emergency Department [address] [place] [address] Tomás Jade MD NO ADDRESS ON FILE FEMALE GENITAL SYMPTOMS NOS (Primary Dx) Social History Tobacco Use Types Packs/Day Years Used Date Smoking Tobacco: Never Assessed Comments Unknown Sex and Gender Information Value Date Recorded Sex Assigned at Not on file Legal Sex Female 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
--- OUTSIDE RECORDS SUMMARY | 2025-04-03 17:48 | XMS_ITS | Encounter Summary ---
Author Organization [facility] Address [address] [place] [address] Care Team Providers Care Director Stage Name Role Phone Areli Gurrola MD Primary Care Provider Encounter Details Date Type Department Care Team (Latest Contact Info) Description 10/09/2002 Outpatient [facility] [address] [place] [address] Gordon Cabral MD NO ADDRESS ON FILE Excessive menstruation (Primary Dx) Social History Tobacco Use Types Packs/Day Years Used Date Smoking Tobacco: Never Assessed Comments Unknown Sex and Gender Information Value Date Recorded Sex Assigned at Not on file Legal Sex Female 3:40 AM MOVER HELPER Gender Identity Not on file Sexual [...] as of this encounter Care Teams Director Stage Relationship Specialty Start Date End Date Areli Gurrola MD [address] [facility] [place] [address] PCP - General Specialist 08/12/19 documented as of this encounter
--- OUTSIDE RECORDS SUMMARY | 2025-04-03 17:48 | XMS_ITS | Encounter Summary ---
Author Organization [facility] Address [address] [place] [address] Care Team Providers Care Industrial Chemicals Supervisor Name Role Phone Areli Gurrola MD Primary Care Provider Encounter Details Date Type Department Care Team (Latest Contact Info) Description 09/09/[address] [facility] [address] [place] [address] Trell York MD [address] [place] [phone] CERVICALGIA (Primary Dx) Social History Tobacco Use Types Packs/Day Years Used Date Smoking Tobacco: Never Assessed Comments Unknown Sex and Gender Information Value Date Recorded Sex Assigned at Not on file Legal Sex Female 3:40 AM CUTTER APPRENTICE HAND Gender Identity Not on file Sexual Orientation Not on file documented as of this encounter Plan of Treatment Not on file documented as of this encounter Visit Diagnoses Diagnosis Cervicalgia- Primary documented in this encounter Additional Health Concerns Infection Onset Date Last Indicated Resolved Time R/O COVID-19 01/31/2020 01/31/2020 02/02/2020 10:3 2 AM CDT documented as of this encounter Care Teams Industrial Chemicals Supervisor Relationship Specialty Start Date End Date Areli Gurrola MD [address] [facility] [place] [address] PCP - General Specialist 08/12/19 documented as of this encounter
--- OUTSIDE RECORDS SUMMARY | 2025-04-03 17:48 | XMS_ITS | Encounter Summary ---
Author Organization [facility] Address [address] [place] [address] Care Team Providers Care Dining Room Maid Name Role Phone Areli Gurrola MD Primary Care Provider Encounter Details Date Type Department Care Team (Latest Contact Info) Description 10/14/2002 Outpatient Historical [facility] [address] [place] [address] Trell York MD [address] [place] [phone] ACUTE URI NOS (Primary Dx); COUGH Social History Tobacco Use Types Packs/Day Years Used Date Smoking Tobacco: Never Assessed Comments Unknown Sex and Gender Information Value Date Recorded Sex Assigned at Not on file Legal Sex Female 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
--- OUTSIDE RECORDS SUMMARY | 2025-04-03 17:48 | XMS_ITS | Encounter Summary ---
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
--- OUTSIDE RECORDS SUMMARY | 2025-04-03 17:48 | XMS_ITS | Encounter Summary ---
Author Organization [facility] Address [address] [place] [address] Care Team Providers Care Route Delivery Service Driver Name Role Phone Areli Gurrola MD Primary Care Provider Encounter Details Date Type Department Care Team (Latest Contact Info) Description 02/02/1999 Outpatient Historical [facility] [address] [place] [address] Alumno, Gibran Lynn MD [address] [place] [address] Sprain and strain of other specified sites of shoulder and upper arm (Primary Dx); Hx musculoskletl dis NEC Social History Tobacco Use Types Packs/Day Years Used Date Smoking Tobacco: Never Assessed Comments Unknown Sex and Gender Information Value Date Recorded Sex Assigned at Not on file Legal Sex Female 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
--- OUTSIDE RECORDS SUMMARY | 2025-04-03 17:48 | XMS_ITS | Encounter Summary ---
Author Organization [facility] Address [address] [place] [address] Care Team Providers Care Production Mechanic Tin Cans Name Role Phone Areli Gurrola MD Primary Care Provider Encounter Details Date Type Department Care Team (Late st Contact Info) Description 03/11/1999 Outpatient Historical [facility] Social History Tobacco Use Types Packs/Day Years Used Date Smoking Tobacco: Never Assessed Comments Unknown Sex and Gender Information Value Date Recorded Sex Assigned at Not on file Legal Sex Female 3:40 AM STATION MECHANIC Gender Identity Not on file Sexual Orientation Not on file documented as of this encounter Plan of Treatment Not on file documented as of this encounter Visit Diagnoses Not on filedocumented in this encounter Additional Health Concerns Infection Onset Date Last Indicated Resolved Time R/O COVID-19 01/31/2020 01/31/2020 02/02/2020 10:3 2 AM CDT documented as of this encounter Care Teams Production Mechanic Tin Cans Relationship Specialty Start Date End Date Areli Gurrola MD [address] [place] [address] PCP - General Specialist 08/12/19 documented as of this encounter
--- OUTSIDE RECORDS SUMMARY | 2025-04-03 17:48 | XMS_ITS | Encounter Summary ---
Author Organization [facility] Address [address] [place] [address] Care Team Providers Care Performance Makeup Artist Name Role Phone Areli Gurrola MD Primary Care Provider Encounter Details Date Type Department Care Team (Latest Contact Info) Description 01/20/2002 [facility]patient [facility] [address] [place] [address] Trell York MD [address] [place] [address] NEUROTIC DEPRESSION (Primary Dx); ANXIETY STATE NOS; CERVICALGIA; LUMBAGO Social History Tobacco Use Types Packs/Day Years Used Date Smoking Tobacco: Never Assessed Comments Unknown Sex and Gender Information Value Date Recorded Sex Assigned at Not on file Legal Sex Female 3:40 AM PRODUCTION ASSEMBLER Gender Identity Not on file Sexual [...] documented as of this encounter Care Teams Performance Makeup Artist Relationship Specialty Start Date End Date Areli Gurrola MD [address] [place] [address] PCP - General Specialist 08/12/19 documented as of this encounter
--- OUTSIDE RECORDS SUMMARY | 2025-04-03 17:48 | XMS_ITS | Encounter Summary ---
Author Organization [facility] Address [address] [place] [address] Care Team Providers Care Toter Name Role Phone Areli Gurrola MD Primary Care Provider Encounter Details Date Type Department Care Team (Late st Contact Info) Description 06/27/2001 Outpatient Historical [facility] Gen Spec Surg [address] [address] Renan Martinez MD [address] [place] [address] CHOLELITHIASIS NOS (Primary Dx); SURGERY FOLLOWUP, UNSPEC Social History Tobacco Use Types Packs/Day Years Used Date Smoking Tobacco: Never Assessed Comments Unknown Sex and Gender Information Value Date Recorded Sex Assigned at Not on file Legal Sex Female 3:40 AM IT RISK ADVISOR Gender Identity Not on file Sexual [...] documented as of this encounter Care Teams Toter Relationship Specialty Start Date End Date Areli Gurrola MD [address] [facility] [address] PCP - General Specialist 08/12/19 documented as of this encounter
--- OUTSIDE RECORDS SUMMARY | 2025-04-03 17:48 | XMS_ITS | Encounter Summary ---
Author Organization [facility] Address [address] [facility] Attn: [place] [address] Care Team Providers Care Umbrella Cutter Name Role Phone Areli Gurrola MD Primary Care Provider Encounter Details Date Type Department Care Team (Late st Contact Info) Description 03/12/1999 Outpatient Historical Alum[place], Gibran Lynn MD [address] [facility] [address] [place] [phone] Social History Tobacco Use Types Packs/Day Years Used Date Smoking Tobacco: Never Assessed Comments Unknown Sex and Gender Information Value Date Recorded Sex Assigned at Not on file Legal Sex Female 3:40 AM ROUTE SPECIALIST Gender Identity Not on file Sexual Orientation Not on file documented as of this encounter Plan of Treatment Not on file documented as of this encounter Visit Diagnoses Not on filedocumented in this encounter Additional Health Concerns Infection Onset Date Last Indicated Resolved Time R/O COVID-19 01/31/2020 01/31/2020 02/02/2020 10:3 2 AM CDT documented as of this encounter Care Teams Umbrella Cutter Relationship Specialty Start Date End Date Areli Gurrola MD [address] [facility] [place] [address] PCP - General Specialist 08/12/19 documented as of this encounter
--- OUTSIDE RECORDS SUMMARY | 2025-04-03 17:48 | XMS_ITS | Encounter Summary ---
Author Organization [facility] Address [address] [place] [address] Care Team Providers Care Electronics Research Engineer Name Role Phone Areli Gurrola MD Primary Care Provider Encounter Details Date Type Department Care Team (Latest Contact Info) Description 03/14/1999 Outpatient [facility] [address] [place] [address] Ti Rondon MD [address] [place] [address] Abdominal pain, unspecified site (Primary Dx); Fever and other physiologic disturbances of temperature regulation; Backache, unspecified Social History Tobacco Use Types Packs/Day Years Used Date Smoking Tobacco: Never Assessed Comments Unknown Sex and Gender Information Value Date Recorded Sex Assigned at Not on file Legal Sex Female 3:40 AM GLOVE PRESSER Gender Identity Not on file Sexual [...] as of this encounter Care Teams Electronics Research Engineer Relationship Specialty Start Date End Date Areli Gurrola MD [address] [place] [address] PCP - General Specialist 08/12/19 documented as of this encounter
--- OUTSIDE RECORDS SUMMARY | 2025-04-03 17:48 | XMS_ITS | Encounter Summary ---
Author Organization [facility] Address [address] [place] [address] Care Team Providers Care Hedge Trimmer Name Role Phone Areli Gurrola MD Primary Care Provider Encounter Details Date Type Department Care Team (Late st Contact Info) Description 03/25/1999 Outpatient Historical [facility] Social History Tobacco Use Types Packs/Day Years Used Date Smoking Tobacco: Never Assessed Comments Unknown Sex and Gender Information Value Date Recorded Sex Assigned at Not on file Legal Sex Female 3:40 AM OVEN DRIER TENDER Gender Identity Not on file Sexual Orientation Not on file documented as of this encounter Plan of Treatment Not on file documented as of this encounter Visit Diagnoses Not on filedocumented in this encounter Additional Health Concerns Infection Onset Date Last Indicated Resolved Time R/O COVID-19 01/31/2020 01/31/2020 02/02/2020 10:3 2 AM CDT documented as of this encounter Care Teams Hedge Trimmer Relationship Specialty Start Date End Date Areli Gurrola MD [address] [place] [address] PCP - General Specialist 08/12/19 documented as of this encounter
--- OUTSIDE RECORDS SUMMARY | 2025-04-03 17:48 | XMS_ITS | Encounter Summary ---
Author Organization [facility] Address [address] [place] [address] Care Team Providers Care Element Winding Machine Tender Name Role Phone Areli Gurrola [...] file Legal Sex Female 3:40 AM DIESEL STATIONARY ENGINEER Gender Identity Not on file Sexual Orientation Not on file documented as of this encounter Plan of Treatment Not on file documented as of this encounter Visit Diagnoses Not on filedocumented in this encounter Additional Health Concerns Infection Onset Date Last Indicated Resolved Time R/O COVID-19 01/31/2020 01/31/2020 02/02/2020 10:3 2 AM CDT documented as of this encounter Care Teams Element Winding Machine Tender Relationship Specialty Start Date End Date Areli Gurrola MD [address] [place] [address] PCP - General Specialist 08/12/19 documented as of this encounter
--- OUTSIDE RECORDS SUMMARY | 2025-04-03 17:48 | XMS_ITS | Encounter Summary ---
Author Organization [facility] Address [address] [place] [address] Care Team Providers Care Pediatric Neurologist Name Role Phone Areli Gurrola MD Primary Care Provider Encounter Details Date Type Department Care Team (Latest Contact Info) Description 10/31/2002 Outpatient Historical [facility] [address] [place] [address] Gordon Cabral MD NO ADDRESS ON FILE SURGERY FOLLOWUP, UNSPEC (Primary Dx) Social History Tobacco Use Types Packs/Day Years Used Date Smoking Tobacco: Never Assessed Comments Unknown Sex and Gender Information Value Date Recorded Sex Assigned at Not on file Legal Sex Female 3:40 AM OFFICE COPY SELECTOR Gender Identity Not on file Sexual [...] as of this encounter Care Teams Pediatric Neurologist Relationship Specialty Start Date End Date Areli Gurrola MD [address] [facility] [place] [address] PCP - General Specialist 08/12/19 documented as of this encounter
--- OUTSIDE RECORDS SUMMARY | 2025-04-03 17:48 | XMS_ITS | Encounter Summary ---
Author Organization [facility] Address [address] [place] [address] Care Team Providers Care Factory Process Workers Name Role Phone Areli Gurrola MD Primary Care Provider Encounter Details Date Type Department Care Team (Late st Contact Info) Description 04/05/1999 Outpatient Historical [facility] Social History Tobacco Use Types Packs/Day Years Used Date Smoking Tobacco: Never Assessed Comments Unknown Sex and Gender Information Value Date Recorded Sex Assigned at Not on file Legal Sex Female 3:40 AM PROGRAM DIRECTOR/TRAFFIC DIRECTOR Gender Identity Not on file Sexual Orientation Not on file documented as of this encounter Plan of Treatment Not on file documented as of this encounter Visit Diagnoses Not on filedocumented in this encounter Additional Health Concerns Infection Onset Date Last Indicated Resolved Time R/O COVID-19 01/31/2020 01/31/2020 02/02/2020 10:3 2 AM CDT documented as of this encounter Care Teams Factory Process Workers Relationship Specialty Start Date End Date Areli Gurrola MD [address] [place] [address] PCP - General Specialist 08/12/19 documented as of this encounter
--- OUTSIDE RECORDS SUMMARY | 2025-04-03 17:48 | XMS_ITS | Encounter Summary ---
Author Organization [facility] Address [address] [place] [address] Care Team Providers Care Real Estate Investment Analyst Name Role Phone Areli Gurrola MD Primary Care Provider Encounter Details Date Type Department Care Team (Latest Contact Info) Description 07/05/1998 Outpatient Historical [facility] Charli Perez [...] documented as of this encounter Care Teams Real Estate Investment Analyst Relationship Specialty Start Date End Date Areli Gurrola MD [address] [place] [address] PCP - General Specialist 08/12/19 documented as of this encounter
--- OUTSIDE RECORDS SUMMARY | 2025-04-03 17:48 | XMS_ITS | Encounter Summary ---
Author Organization [facility] Address [address] [place] [address] Care Team Providers Care Pan Puller Name Role Phone Areli Gurrola MD Primary Care Provider Encounter Details Date Type Department Care Team (Latest Contact Info) Description 07/30/2002 Outpatient Historical [facility] [address] [place] [address] Trell York MD [address] [place] [phone] INSOMNIA NEC (Primary Dx); NEUROTIC DEPRESSION; LUMBAGO Social History Tobacco Use Types Packs/Day Years Used Date Smoking Tobacco: Never Assessed Comments Unknown Sex and Gender Information Value Date Recorded Sex Assigned at Not on file Legal Sex Female 3:40 AM FUND CONTROLLER Gender Identity Not on file Sexual Orientation [...] documented as of this encounter Care Teams Pan Puller Relationship Specialty Start Date End Date Areli Gurrola MD [address] [facility] [place] [address] PCP - General Specialist 08/12/19 documented as of this encounter
--- OUTSIDE RECORDS SUMMARY | 2025-04-03 17:48 | XMS_ITS | Encounter Summary ---
Author Organization [facility] Address [address] [place] [address] Care Team Providers Care Auto Technician Name Role Phone Areli Gurrola MD Primary Care Provider Encounter Details Date Type Department Care Team (Latest Contact Info) Description 10/03/2002 Outpatient [facility] [address] [place] [address] Gordon Cabral MD NO ADDRESS ON FILE METRORRHAGIA (Primary Dx) Social History Tobacco Use Types Packs/Day Years Used Date Smoking Tobacco: Never Assessed Comments Unknown Sex and Gender Information Value Date Recorded Sex Assigned at Not on file Legal Sex Female 3:40 AM MANAGER MONEY Gender Identity Not on file Sexual Orientation Not on file documented as of this encounter Plan of Treatment Not on file documented as of this encounter Visit Diagnoses Diagnosis Metrorrhagia- Primary documented in this encounter Additional Health Concerns Infection Onset Date Last Indicated Resolved Time R/O COVID-19 01/31/2020 01/31/2020 02/02/2020 10:3 2 AM CDT documented as of this encounter Care Teams Auto Technician Relationship Specialty Start Date End Date Areli Gurrola MD [address] [place] [address] PCP - General Specialist 08/12/19 documented as of this encounter
--- OUTSIDE RECORDS SUMMARY | 2025-04-03 17:48 | XMS_ITS | Encounter Summary ---
Author Organization [facility] Address [address] [place] [address] Care Team Providers Care Rn Managed Care Name Role Phone Areli Gurrola MD Primary Care Provider Encounter Details Date Type Department Care Team (Late st Contact Info) Description 06/24/2003 Outpatient Historical [facility] Imaging Services [place] [address] [place] [address] Shayy Landry MD [address] [address] Social History Tobacco Use Types Packs/Day Years Used Date Smoking Tobacco: Never Assessed Comments Unknown Sex and Gender Information Value Date Recorded Sex Assigned at Not on file Legal Sex Female 3:40 AM MACHINE BOOKKEEPER Gender Identity Not on file Sexual Orientation Not on file documented as of this encounter Plan of Treatment Not on file documented as of this encounter Visit Diagnoses Not on filedocumented in this encounter Additional Health Concerns Infection Onset Date Last Indicated Resolved Time R/O COVID-19 01/31/2020 01/31/2020 02/02/2020 10:3 2 AM CDT documented as of this encounter Care Teams Rn Managed Care Relationship Specialty Start Date End Date Areli Gurrola MD [address] [facility] [place] [address] PCP - General Specialist 08/12/19 documented as of this encounter
--- OUTSIDE RECORDS SUMMARY | 2025-04-03 17:48 | XMS_ITS | Encounter Summary ---
Author Organization [facility] Address [address] [place] [address] Care Team Providers Care Parts Salesman Name Role Phone Areli Gurrola MD Primary Care Provider Encounter Details Date Type Department Care Team (Latest Contact Info) Description 10/22/2002 Outpatient Historical [facility] Operating Room [address] [place] [address] Gordon Cabral MD NO ADDRESS ON FILE POLYP OF CORPUS UTERI (Primary Dx) Social History Tobacco Use Types Packs/Day Years Used Date Smoking Tobacco: Never Assessed Comments Unknown Sex and Gender Information Value Date Recorded Sex Assigned at Not on file Legal Sex Female 3:40 AM MISSION SUPPORT SPECIALIST Gender Identity Not on file Sexual [...] as of this encounter Care Teams Parts Salesman Relationship Specialty Start Date End Date Areli Gurrola MD [address] [place] [address] PCP - General Specialist 08/12/19 documented as of this encounter
--- OUTSIDE RECORDS SUMMARY | 2025-04-03 17:48 | XMS_ITS | Encounter Summary ---
Author Organization [facility] Address [address] [place] [address] Care Team Providers Care Design Chief Name Role Phone Areli Gurrola MD Primary Care Provider Encounter Details Date Type Department Care Team (Late st Contact Info) Description 07/07/2004 Outpatient Historical [facility] Imaging Services [facility] [address] [address] Social History Tobacco Use Types Packs/Day Years Used Date Smoking Tobacco: Never Assessed Comments Unknown Sex and Gender Information Value Date Recorded Sex Assigned at Not on file Legal Sex Female 3:40 AM RESEARCH PROFESSIONAL Gender Identity Not on file Sexual Orientation Not on file documented as of this encounter Plan of Treatment Not on file documented as of this encounter Visit Diagnoses Not on filedocumented in this encounter Additional Health Concerns Infection Onset Date Last Indicated Resolved Time R/O COVID-19 01/31/2020 01/31/2020 02/02/2020 10:3 2 AM CDT documented as of this encounter Care Teams Design Chief Relationship Specialty Start Date End Date Areli Gurrola MD [address] [place] [address] PCP - General Specialist 08/12/19 documented as of this encounter
--- OUTSIDE RECORDS SUMMARY | 2025-04-03 17:48 | XMS_ITS | Encounter Summary ---
Author Organization [facility] Address [address] [place] [address] Care Team Providers Care Salvager Name Role Phone Areli Gurrola MD Primary Care Provider Encounter Details Date Type Department Care Team (Late st Contact Info) Description 04/14/1999 Outpatient Historical [facility] Social History Tobacco Use Types Packs/Day Years Used Date Smoking Tobacco: Never Assessed Comments Unknown Sex and Gender Information Value Date Recorded Sex Assigned at Not on file Legal Sex Female 3:40 AM TURRET LATHE SET UP OPERATOR Gender Identity Not on file Sexual Orientation Not on file documented as of this encounter Plan of Treatment Not on file documented as of this encounter Visit Diagnoses Not on filedocumented in this encounter Additional Health Concerns Infection Onset Date Last Indicated Resolved Time R/O COVID-19 01/31/2020 01/31/2020 02/02/2020 10:3 2 AM CDT documented as of this encounter Care Teams Salvager Relationship Specialty Start Date End Date Areli Gurrola MD [address] [place] [address] PCP - General Specialist 08/12/19 documented as of this encounter
--- OUTSIDE RECORDS SUMMARY | 2025-04-03 17:48 | XMS_ITS | Encounter Summary ---
Author Organization [facility] Address [address] [place] [address] Care Team Providers Care Aerospace Assembler Name Role Phone Areli Gurrola MD Primary Care Provider Encounter Details Date Type Department Care Team (Latest Contact Info) Description 03/23/1999 Outpatient [facility] [address] [place] [address] Alumno, Gibran Lynn MD [address] [place] [address] Unspecified viral infection, in conditions [...] file Legal Sex Female 3:40 AM MANUFACTURING MAINTENANCE TECHNICIAN Gender Identity Not on file Sexual [...] documented as of this encounter Care Teams Aerospace Assembler Relationship Specialty Start Date End Date Areli Gurrola MD [address] [place] [address] PCP - General Specialist 08/12/19 documented as of this encounter
--- OUTSIDE RECORDS SUMMARY | 2025-04-03 17:48 | XMS_ITS | Encounter Summary ---
Author Organization [employer] [facility] [facility] Address [address] [place] [address] Care Team Providers Care Web Editor Name Role Phone Areli Gurrola MD Primary Care Provider Encounter Details Date Type Department Care Team (Latest Contact Info) Description 10/03/2002 [facility] [address] [place] [address] Gordon Cabral MD NO ADDRESS ON FILE MENSTRUAL DISORDER NEC (Primary Dx) Social History Tobacco Use Types Packs/Day Years Used Date Smoking Tobacco: Never Assessed Comments Unknown Sex and Gender Information Value Date Recorded Sex Assigned at Not on file Legal Sex Female 3:40 AM CABLE SUPERVISOR Gender Identity Not on file Sexual [...] as of this encounter Care Teams Web Editor Relationship Specialty Start Date End Date Areli Gurrola MD [address] [facility] [place] [address] PCP - General Specialist 08/12/19 documented as of this encounter
--- OUTSIDE RECORDS SUMMARY | 2025-04-03 17:48 | XMS_ITS | Encounter Summary ---
Author Organization [facility] Address [address] [place] [address] Care Team Providers Care Eradicator Name Role Phone Areli Gurrola MD Primary Care Provider Encounter Details Date Type Department Care Team (Latest Contact Info) Description 01/11/2004 [facility] [address] [place] [address] Trell York MD [address] [place] [phone] CERVICALGIA (Primary Dx); DYSTHYMIC DISORDER Social History Tobacco Use Types Packs/Day Years Used Date Smoking Tobacco: Never Assessed Comments Unknown Sex and Gender Information Value Date Recorded Sex Assigned at Not on file Legal Sex Female 3:40 AM DAIRY EQUIPMENT SPECIALIST Gender Identity Not on file Sexual [...] documented as of this encounter Care Teams Eradicator Relationship Specialty Start Date End Date Areli Gurrola MD [address] [place] [address] PCP - General Specialist 08/12/19 documented as of this encounter
--- OUTSIDE RECORDS SUMMARY | 2025-04-03 17:48 | XMS_ITS | Encounter Summary ---
Author Organization [facility] Address [address] [facility] [address] Attn: [place] [address] Care Team Providers Care Make Up Operator Name Role Phone Areli Gurrola [...] on file Legal Sex Female 3:40 AM INFANTRY OFFICER Gender Identity Not on file Sexual Orientation Not on file documented as of this encounter Plan of Treatment Not on file documented as of this encounter Visit Diagnoses Not on filedocumented in this encounter Additional Health Concerns Infection Onset Date Last Indicated Resolved Time R/O COVID-19 01/31/2020 01/31/2020 02/02/2020 10:3 2 AM CDT documented as of this encounter Care Teams Make Up Operator Relationship Specialty Start Date End Date Areli Gurrola MD [address] [place] [address] PCP - General Specialist 08/12/19 documented as of this encounter
--- OUTSIDE RECORDS SUMMARY | 2025-04-03 17:48 | XMS_ITS | Encounter Summary ---
Author Organization [facility] Address [address] [place] [address] Care Team Providers Care Certified Master Safecracker Name Role Phone Areli Gurrola MD Primary Care Provider Encounter Details Date Type Department Care Team (Latest Contact Info) Description 08/25/2002 Outpatient Historical [facility] [address] [place] [address] Trell York MD [address] [place] [phone] INSOMNIA NEC (Primary Dx); OTHER MALAISE AND FATIGUE; NEUROTIC DEPRESSION; CERVICALGIA Social History Tobacco Use Types Packs/Day Years Used Date Smoking Tobacco: Never Assessed Comments Unknown Sex and Gender Information Value Date Recorded Sex Assigned at Not on file Legal Sex Female 3:40 AM DATA PROCESSING CONTROL CLERK Gender Identity Not on file Sexual [...] documented as of this encounter Care Teams Certified Master Safecracker Relationship Specialty Start Date End Date Areli Gurrola MD [address] [facility] [place] [address] PCP - General Specialist 08/12/19 documented as of this encounter
--- OUTSIDE RECORDS SUMMARY | 2025-04-03 17:48 | XMS_ITS | Encounter Summary ---
Author Organization [facility] Address [address] [place] [address] Care Team Providers Care Corporate Strategist Name Role Phone Areli Gurrola MD Primary Care Provider Encounter Details Date Type Department Care Team (Latest Contact Info) Description 10/01/2002 Outpatient Historical [facility] [address] [place] [address] Trell York MD [address] [place] [phone] ACUTE SINUSITIS NOS (Primary Dx) Social History Tobacco Use Types Packs/Day Years Used Date Smoking Tobacco: Never Assessed Comments Unknown Sex and Gender Information Value Date Recorded Sex Assigned at Not on file Legal Sex Female 3:40 AM RESTAURANT DISTRICT MANAGER Gender Identity Not on file Sexual [...] as of this encounter Care Teams Corporate Strategist Relationship Specialty Start Date End Date Areli Gurrola MD [address] [facility] [place] [address] PCP - General Specialist 08/12/19 documented as of this encounter
--- OUTSIDE RECORDS SUMMARY | 2025-04-03 17:48 | XMS_ITS | Encounter Summary ---
Author Organization [facility] Address [address] [place] [address] Care Team Providers Care Bend Up Name Role Phone Areli Gurrola MD Primary Care Provider Encounter Details Date Type Department Care Team (Latest Contact Info) Description 02/20/2005 [facility]patient [facility] [address] [place] [address] Trell York MD [address] [place] [phone] LUMBAGO (Primary Dx); DYSTHYMIC DISORDER; ANXIETY STATE NOS; CERVICALGIA Social History Tobacco Use Types Packs/Day Years Used Date Smoking Tobacco: Never Assessed Comments Unknown Sex and Gender Information Value Date Recorded Sex Assigned at Not on file Legal Sex Female 3:40 AM COLD MOLDING PRESS OPERATOR Gender Identity Not on file [...] documented as of this encounter Care Teams Bend Up Relationship Specialty Start Date End Date Areli Gurrola MD [address] [place] [address] PCP - General Specialist 08/12/19 documented as of this encounter
--- OUTSIDE RECORDS SUMMARY | 2025-04-03 17:48 | XMS_ITS | Encounter Summary ---
Author Organization [facility] Address [address] [place] [address] Care Team Providers Care Bearing Grinder Name Role Phone Areli Gurrola MD Primary Care Provider Encounter Details Date Type Department Care Team (Late st Contact Info) Description 03/18/1999 Outpatient Historical [facility] Social History Tobacco Use Types Packs/Day Years Used Date Smoking Tobacco: Never Assessed Comments Unknown Sex and Gender Information Value Date Recorded Sex Assigned at Not on file Legal Sex Female 3:40 AM CSR Gender Identity Not on file Sexual Orientation Not on file documented as of this encounter Plan of Treatment Not on file documented as of this encounter Visit Diagnoses Not on filedocumented in this encounter Additional Health Concerns Infection Onset Date Last Indicated Resolved Time R/O COVID-19 01/31/2020 01/31/2020 02/02/2020 10:3 2 AM CDT documented as of this encounter Care Teams Bearing Grinder Relationship Specialty Start Date End Date Areli Gurrola MD [address] [place] [address] PCP - General Specialist 08/12/19 documented as of this encounter
--- OUTSIDE RECORDS SUMMARY | 2025-04-03 17:48 | XMS_ITS | Encounter Summary ---
Author Organization [facility] Address [address] [place] [address] Care Team Providers Care Stone Spreader Operator Name Role Phone Areli Gurrola MD Primary Care Provider Encounter Details Date Type Department Care Team (Late st Contact Info) Description 03/25/1999 Outpatient Historical [facility] Social History Tobacco Use Types Packs/Day Years Used Date Smoking Tobacco: Never Assessed Comments Unknown Sex and Gender Information Value Date Recorded Sex Assigned at Not on file Legal Sex Female 3:40 AM DIRECTOR SAFETY COUNCIL Gender Identity Not on file Sexual Orientation Not on file documented as of this encounter Plan of Treatment Not on file documented as of this encounter Visit Diagnoses Not on filedocumented in this encounter Additional Health Concerns Infection Onset Date Last Indicated Resolved Time R/O COVID-19 01/31/2020 01/31/2020 02/02/2020 10:3 2 AM CDT documented as of this encounter Care Teams Stone Spreader Operator Relationship Specialty Start Date End Date Areli Gurrola MD [address] [place] [address] PCP - General Specialist 08/12/19 documented as of this encounter
--- OUTSIDE RECORDS SUMMARY | 2025-04-03 17:48 | XMS_ITS | Encounter Summary ---
Author Organization [facility] Address [address] [place] [address] Care Team Providers Care Business Services Manager Name Role Phone Areli Gurrola MD Primary Care Provider Encounter Details Date Type Department Care Team (Latest Contact Info) Description 12/18/[address] [facility] [address] [place] [address] Gordon Cabral MD NO ADDRESS ON FILE PREOP EXAM OTHER SPECIFIED (Primary Dx); Excessive menstruation; FEMALE GENITAL SYMPTOMS NOS Social History Tobacco Use Types Packs/Day Years Used Date Smoking Tobacco: Never Assessed Comments Unknown Sex and Gender Information Value Date Recorded Sex Assigned at Not on file Legal Sex Female 3:40 AM STAINLESS STEEL FINISHER Gender Identity Not on file Sexual [...] of this encounter Care Teams Business Services Manager Relationship Specialty Start Date End Date Areli Gurrola MD [address] [place] [address] PCP - General Specialist 08/12/19 documented as of this encounter
--- OUTSIDE RECORDS SUMMARY | 2025-04-03 17:48 | XMS_ITS | Encounter Summary ---
Author Organization [facility] Address [address] [place] [address] Care Team Providers Care Retouching Operator Name Role Phone Areli Gurrola MD Primary Care Provider Encounter Details Date Type Department Care Team (Latest Contact Info) Description 08/20/2001 Outpatient Historical [facility] [address] [place] [address] Trell York MD [address] [place] [phone] ACUTE PHARYNGITIS (Primary Dx) Social History Tobacco Use Types Packs/Day Years Used Date Smoking Tobacco: Never Assessed Comments Unknown Sex and Gender Information Value Date Recorded Sex Assigned at Not on file Legal Sex Female 3:40 AM BILINGUAL PATIENT SUPPORT CASEWORKER Gender Identity Not on file Sexual Orientation Not on file documented as of this encounter Plan of Treatment Not on file documented as of this encounter Visit Diagnoses Diagnosis Acute pharyngitis- Primary documented in this encounter Additional Health Concerns Infection Onset Date Last Indicated Resolved Time R/O COVID-19 01/31/2020 01/31/2020 02/02/2020 10:3 2 AM CDT documented as of this encounter Care Teams Retouching Operator Relationship Specialty Start Date End Date Areli Gurrola MD [address] [facility] [place] [address] PCP - General Specialist 08/12/19 documented as of this encounter
--- OUTSIDE RECORDS SUMMARY | 2025-04-03 17:48 | XMS_ITS | Encounter Summary ---
Author Organization [facility] Address [address] [place] [address] Care Team Providers Care Meat Packager Name Role Phone Areli Gurrola MD Primary Care Provider Encounter Details Date Type Department Care Team (Latest Contact Info) Description 06/22/2003 Outpatient Historical [facility] [address] [place] [address] Trell York MD [address] [place] [phone] CHEST PAIN NOS (Primary Dx); ABN INVOLUN MOVEMENT NEC; CERVICALGIA Social History Tobacco Use Types Packs/Day Years Used Date Smoking Tobacco: Never Assessed Comments Unknown Sex and Gender Information Value Date Recorded Sex Assigned at Not on file Legal Sex Female 3:40 AM AIR CONDITIONING COIL ASSEMBLER Gender Identity Not on file Sexual [...] documented as of this encounter Care Teams Meat Packager Relationship Specialty Start Date End Date Areli Gurrola MD [address] [facility] [place] [address] PCP - General Specialist 08/12/19 documented as of this encounter
--- OUTSIDE RECORDS SUMMARY | 2025-04-03 17:49 | XMS_ITS | Encounter Summary ---
Author Organization [facility] Address [address] [place] [address] Care Team Providers Care Casing Tier Name Role Phone Areli Gurrola MD Primary Care Provider Encounter Details Date Type Department Care Team (Late st Contact Info) Description 04/14/2002 Outpatient Historical [facility] [address] [place] [address] Miguelangel Mas, NO ADDRESS ON FILE JOINT PAIN-ANKLE (Primary Dx) Social History Tobacco Use Types Packs/Day Years Used Date Smoking Tobacco: Never Assessed Comments Unknown Sex and Gender Information Value Date Recorded Sex Assigned at Not on file 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
--- OUTSIDE RECORDS SUMMARY | 2025-04-03 17:49 | XMS_ITS | Encounter Summary ---
Author Organization [facility] Address [address] [place] [address] Care Team Providers Care Eyeglass Inspector Name Role Phone Areli Gurrola MD Primary Care Provider Encounter Details Date Type Department Care Team (Latest Contact Info) Description 03/20/[address] 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
--- OUTSIDE RECORDS SUMMARY | 2025-04-03 17:49 | XMS_ITS | Encounter Summary ---
Author Organization [facility] Address [address] [place] [address] Care Team Providers Care Fraud Prevention Analyst Name Role Phone Areli Gurrola MD Primary Care Provider Encounter Details Date Type Department Care Team (Late st Contact Info) Description 04/14/2002 Outpatient Historical [facility] [place] [facility] [address] [place] [address] Miguelangel Mas, NO ADDRESS ON FILE SPRAIN OF ANKLE NOS (Primary Dx) Social History Tobacco Use Types Packs/Day Years Used Date Smoking Tobacco: Never Assessed Comments Unknown Sex and Gender Information Value Date Recorded Sex Assigned at Not on file 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
--- OUTSIDE RECORDS SUMMARY | 2025-04-03 17:49 | XMS_ITS | Encounter Summary ---
Author Organization [facility] Address [address] [place] [address] Care Team Providers Care Outsoles Channel Opener Name Role Phone Areli Gurrola MD Primary Care Provider Encounter Details Date Type Department Care Team (Latest Contact Info) Description 03/26/2002 Outpatient Historical [facility] [address] [place] [address] Trell York MD [address] [place] [phone] CERVICALGIA (Primary Dx); ABDOMINAL PAIN UNSPEC SITE Social History Tobacco Use Types Packs/Day Years Used Date Smoking Tobacco: Never Assessed Comments Unknown Sex and Gender Information Value Date Recorded Sex Assigned at Not on file Legal 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
--- OUTSIDE RECORDS SUMMARY | 2025-04-03 17:49 | XMS_ITS | Encounter Summary ---
Author Organization [facility] Address [address] [place] [address] Care Team Providers Care Bilingual Sales Assistant Name Role Phone Areli Gurrola MD Primary Care Provider Encounter Details Date Type Department Care Team (Latest Contact Info) Description 04/07/2002 Outpatient Historical [facility] [address] [place] [address] Trell York MD [address] [place] [phone] URTICARIA NOS (Primary Dx) Social History Tobacco Use Types Packs/Day Years Used Date Smoking Tobacco: Never Assessed Comments Unknown Sex and Gender Information Value Date Recorded Sex Assigned at Not on file 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 [place] [address] PCP - General Specialist 08/12/19 documented as of this encounter
--- OUTSIDE RECORDS SUMMARY | 2025-04-03 17:49 | XMS_ITS | Encounter Summary ---
Author Organization [facility] Address [address] [place] [address] Care Team Providers Care Personal Counselor Name Role Phone Areli Gurrola MD Primary Care Provider Encounter Details Date Type Department Care Team (Latest Contact Info) Description 04/10/2002 Outpatient Historical [facility] Endoscopy Andrés [address] [facility] [address] [place] [address] Gildardo Ace MD [address] [place] [phone] ABDOMINAL PAIN EPIGASTRIC (Primary Dx) Social History Tobacco Use Types Packs/Day Years Used Date Smoking Tobacco: Never Assessed Comments Unknown Sex and Gender Information Value Date Recorded Sex Assigned at Not on file 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
[2025-04-03 18:00] VITALS: TEMP 36.8; BMI 38.3
--- NOTE | 2025-04-03 18:09 | W.ED.RECABL ---
HPI - Recheck/Abnormal Lab/Rx General: Chief Complaint: Recheck/Abnormal Lab/Rx Stated Complaint: cast is uncomfortable Time Seen by Provider: 04/03/25 18:03 Source: patient Mode of arrival: wheelchair Limitations: no limitations History of Present Illness: Patient is a 59-year-old female presents to ED today reporting back to her splint to her right lower leg is uncomfortable. She states the splint is right behind her knee and is chafing/rubbing. Patient states she was seen here just a few days ago and had a CT scan of her lower extremity which showed: CT/CT lower leg RT wo con* [id number] IMPRESSION: 1. Subacute fracture of the proximal fibula with adjacent callus formation consistent with healing. 2. Focus of decreased mineralization along the undersurface of the posterior right lateral tibial plateau which may represent contusion from adjacent fibula or healing of nondisplaced fracture. Patient states she has follow up with Dr. Ghosh on 04/14. complaint: other (splint re-evaluation) Initial visit (ago): day(s) Initial visit for: other (leg fx) Symptoms since prior visit: no new symptoms Associated symptoms: none Related Data Home Medications ?Medication ?Instructions ?Recorded ?Confirmed ziprasidone HCl 20 mg capsule 20 mg PO BID PRN Anxiety 07/23/24 03/10/25 epinephrine 0.3 mg/0.3 mL See Rx Instructions .Route .COMPLEX 11/24/24 03/10/25 injection, auto-injector nitroglycerin 0.4 mg sublingual See Rx Instructions .Route .COMPLEX 11/24/24 03/10/25 tablet [id number] ac 400 1 tab PO DAILY 01/27/25 03/10/25 mcg-calcium carb 500 mg-vit K1 20 mcg tablet (Women's 50 Plus Multivitamin) spironolactone 100 mg tablet 100 mg PO DAILY 01/27/25 03/10/25 tizanidine 4 mg tablet 4 mg PO BEDTIME 02/23/25 03/10/25 furosemide 80 mg tablet See Rx Instructions .Route .COMPLEX 03/10/25 03/10/25 hydrocodone 5 mg-acetaminophen 325 1 tab PO Q8H 03/10/25 03/10/25 mg tablet Previous Rx's ?Medication ?Instructions ?Recorded magnesium oxide 400 mg (241.3 mg 400 mg PO BID #60 tabs 01/30/25 magnesium) tablet melatonin 3 mg tablet 3 mg PO BEDTIME #30 tabs 01/30/25 diazepam 5 mg tablet (Valium) 5 - 10 mg (1 - 2 x 5 mg) PO Q8H 02/28/25 PRN alcohol withdrawal #60 tabs levetiracetam 750 mg tablet 750 mg PO BID #60 tabs 02/28/25 tramadol 50 mg tablet 50 mg PO Q8H PRN pain #7 tabs 03/10/25 hydrocodone 5 mg-acetaminophen 325 1 tab PO Q8H PRN pain #14 tabs 03/23/25 mg tablet polyethylene glycol 3350 17 17 g PO DAILY #510 grams 03/23/25 gram/dose oral powder (Miralax) Allergies Allergy/AdvReac Type Severity Reaction Status Date / Time venom-wasp Allergy Severe ALGY-Anaphy Verified 04/01/25 16:16 laxis Sulfa (Sulfonamide Allergy Intermediate Hives Verified 04/01/25 16:16 Antibiotics) aspirin Allergy Unknown Unknown Verified 04/01/25 16:16 NSAIDS (Non-Steroidal Allergy Unknown Unknown Verified 04/01/25 16:16 Anti-Inflamma sumatriptan (From Imitrex) Allergy Unknown Unknown Verified 04/01/25 16:16 ibuprofen (From NeoProfen Allergy UNKNOWN Verified 04/01/25 16:16 (ibuprofen lysn)(PF)) latex Allergy ALGY-Bliste Verified 04/01/25 16:16 r metoclopramide (From Reglan) Allergy ALGY-Joint Verified 04/01/25 16:16 Pain bupropion (From Wellbutrin) AdvReac Intermediate ALGY-Rash Verified 04/01/25 16:16 prednisone AdvReac Intermediate Heart rate Verified 04/01/25 16:16 was heavy. [place] sick. Cephalosporins AdvReac Unknown Unknown Verified 04/01/25 16:16 Review of Systems Musc: Reports: extremity pain (not worsening) and extremity swelling (not worsening) Neuro: Reports: other (using crutches for ambulation); Denies: numbness in extremities, weakness in extremities or sensory changes PFSH ED PFSH: Medical History Ascites due to alcoholic cirrhosis PTSD (post-traumatic stress disorder) Suicidal ideation Cannabis dependence, episodic use Major depressive disorder, recurrent, severe with psychotic symptoms Nicotine dependence due to vaping tobacco product Vaping nicotine Chronic post-traumatic stress disorder Alcohol use disorder, severe, dependence Psychiatric care Uncontrolled type 2 diabetes with neuropathy Sacroiliitis H/O Belkys-Valenzuela syndrome (~07/2019) EGD at [facility]. EGD 10/26 negative. Chronic back pain Congestive heart failure Diabetes mellitus MONTANO (nonalcoholic steatohepatitis) Borderline personality disorder Bilateral primary osteoarthritis of hip Surgical History History of hysterectomy History of esophagogastroduodenoscopy H/O colonoscopy H/O cervical spine surgery Family History Son Suicide September 2019 Other Cancer Hypertension Psychiatric illness Social History Smoking and tobacco/nicotine status: current every day tobacco/nicotine user (vape) cigarettes [ Other cigarette details: When vape breaks she returns to cigarettes] and e-cigarettes E-Cigarette Details: vaporizer device and with nicotine E-cig/vape details: 6000 puffs in each device, uses 3 per month Quit status (tobacco/nicotine): not considering quitting Second hand smoke exposure: Yes Alcohol intake: current Alcohol intake frequency: few times a month Alcohol type: hard liquor Substance/Drug Use: current Substance/Drug use frequency: daily Other substance/drug use details: medical card Additional social history: Patient now vapes she states a monthly vape will last her 3 months but this is not very specific. She wants full code as discussed today with Casper Blas MD on 01/27/2025 she tells me she quit using marijuana about 3 months ago and she quit alcohol 3 months ago. 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: DAVID service: No Current occupational status: disabled Current occupational exposures/hazards: No Pets and animals: Yes Pets & animals: cat(s) Leisure activites: music, games and other Leisure activities details: watch a lot of movies Sexually active: No Do you think of yourself as: Straight/Heterosexual Current gender identity: Female Aparna/Mu-Ism: Rastafari Special [place] needs: No Agree to transfusion: Yes Female Reproductive History: Para: 2 Spontaneous abortions: Yes (10) Physical Exam Const: COMMON NORMALS: no acute distress, patient oriented x3, no limitations, alert and well nourished Extremity: COMMON NORMALS: capillary refill normal and no calf tenderness GENERAL: Yes normal exam except as noted OTHER: posterior lower extremity splint ending at popliteal fossa which she states is uncomfortable and rubbing when she has knee flexed; NV intact Neuro: COMMON NORMALS: patient oriented x3, moves all extremities, no focal motor deficits and no sensory deficits noted SENSORIUM/ORIENTATION: Yes alert Course Vital Signs: Vital signs: Vital Signs Temperature 98.2 F 04/03/25 18:00 Pulse Rate 76 04/03/25 18:12 Respiratory Rate 16 04/03/25 18:12 Blood Pressure 149/75 04/03/25 18:12 Pulse Oximetry 100 04/03/25 18:12 Oxygen Delivery Me thod Room Air 04/03/25 18:12 MDM - Recheck/Abnormal Lab/Rx Medical Decision Making CT scan from previous visit reviewed. Looks like she has a subacute proximal fibular fracture and a possible tibial plateau fracture. Patient will be placed in a long-leg posterior splint with plan to follow-up with [facility] as scheduled. She can continue to utilize crutches. No radiology studies performed this visit Discharge Plan Discharge Patient Disposition: Home Clinical Impression: Closed fracture of right lower leg Condition: Stable Prescriptions: No Action spironolactone 100 mg tablet 100 mg PO DAILY Women's 50 Plus Multivitamin 400 mcg-500 mg calcium-20 mcg Tablet 1 tab PO DAILY melatonin 3 mg Tablet 3 mg PO BEDTIME Qty: 30 0RF magnesium oxide 400 mg (241.3 mg magnesium) Tablet 400 mg PO BID Qty: 60 0RF hydrocodone-acetaminophen 5-325 mg tablet 1 tab PO Q8H furosemide 80 mg tablet See Rx Instructions .ROUTE .COMPLEX Rx Instructions: TAKE 1 TABLET BY MOUTH IN THE MORNING AND 1/2 A TABLET IN THE AFTERNOON tramadol 50 mg tablet 50 mg PO Q8H PRN (Reason: pain) Qty: 7 0RF ziprasidone HCl 20 mg capsule 20 mg PO BID PRN (Reason: Anxiety) nitroglycerin 0.4 mg tablet, sublingual See Rx Instructions .ROUTE .COMPLEX Rx Instructions: PLACE ONE TABLET UNDER TONGUE NEEDED FOR CHEST PAIN. epinephrine 0.3 mg/0.3 mL auto-injector See Rx Instructions .ROUTE .COMPLEX Rx Instructions: INJECT 1 PEN IN THE MUSCLE ONE TIME DIRECTED. tizanidine 4 mg tablet 4 mg PO BEDTIME levetiracetam 750 mg tablet 750 mg PO BID Qty: 60 0RF diazepam [Valium] 5 mg tablet 5 - 10 mg PO Q8H MDD 30 mg PRN (Reason: alcohol withdrawal) Qty: 60 0RF hydrocodone-acetaminophen 5-325 mg tablet 1 tab PO Q8H PRN (Reason: pain) Qty: 14 0RF Rx Instructions: Take 1/2 to 1 tab every 8 hours as needed for pain polyethylene glycol 3350 [Miralax] 17 gram/dose powder 17 g PO DAILY Qty: 510 0RF Rx Instructions: Take 1 scoop daily while taking pain medications. Discharge Orders: Discharge ED (Routine); Ordered 04/03/25 Ordered By: Margaret Veras Referrals: Aida Vincent PA [Primary Care Provider, [facility]] Patient Instructions: Patient Portal & Deana Instructions Print Language: Guamanian Coding Level of Care Code ED Drafter Heating And Ventilating for Rober Arellano
[2025-04-03 18:12] VITALS: BP 149/75; PULSE 76; RESP 16; O2SAT 100
[2025-04-03] MEDS: HYDROcodone-acetaminophen 7.5-325 mg Tablet 1 TAB PO (19:29)
[2025-04-03 20:38] VITALS: BP 145/59; PULSE 72; O2SAT 99
== END 2025-04-03 20:39 | disposition home or self-care (01) ==
PROVIDERS: Emergency Provider Physician Assistant; PCP Physician Assistant
DX: S82.491D Other fracture of shaft of right fibula, subsequent encounter for closed fracture with routine healing (principal); F17.290 Nicotine dependence, other tobacco product, uncomplicated; F17.210 Nicotine dependence, cigarettes, uncomplicated; I50.9 Heart failure, unspecified; E11.40 Type 2 diabetes mellitus with diabetic neuropathy, unspecified; X58.XXXD Exposure to other specified factors, subsequent encounter
CPT/HCPCS: 99283; J9999

== ENCOUNTER 2025-04-08 12:53 | Oncology outpatient (recurring) (ONCR) | payer MEDICARE, MEDICAID, SELFPAY ==
[2024-09-18 15:42] VITALS: BP 147/78; BMI 37.0
[2025-03-10 16:10] VITALS: BP 142/67; PULSE 62; RESP 16; TEMP 36.5; O2SAT 98
[2025-03-10 16:30] VITALS: BP 148/73; PULSE 63; RESP 17; TEMP 36.8; O2SAT 99
[2025-03-10 16:47] VITALS: BP 100/68; PULSE 53; RESP 17; TEMP 36.5; O2SAT 99
[2025-03-10 17:17] VITALS: BP 148/68; PULSE 72; RESP 17; TEMP 36.4; O2SAT 99
[2025-03-10 18:09] VITALS: BP 164/80; PULSE 66; RESP 17; TEMP 36.9; O2SAT 99
[2025-03-10 18:18] VITALS: BP 164/80; PULSE 66; RESP 17; TEMP 36.9; O2SAT 99
[2025-04-08 12:49] LABS: Hematocrit 31.5 % (36-47); Hemoglobin 10.40 g/dL (11.27-16.99); Mean Corpuscular HGB Conc 33.0 g/dL (30-55); Mean Corpuscular Hemoglobin 29.8 pg (27-33); Mean Corpuscular Volume 90.3 fl (85-98); Nucleated Red Blood Cells % 0 %; Platelet Count 65 10^3/cmm (157-399); Red Blood Count 3.49 10^6/uL (3.85-5.65); White Blood Count 4.67 10^3/uL (3.29-11.43)
[2025-04-08 13:05] LABS: Alanine Aminotransferase 18 U/L (0-33); Albumin Level 3.0 g/dL (3.5-5.2); Alkaline Phosphatase 213 U/L (35-105); Anion Gap 16.1 (5-19); Aspartate Amino Transferase 34 U/L (0-32); Blood Urea Nitrogen 10 mg/dL (6-20); Calcium 9.1 mg/dL (8.5-10.5); Carbon Dioxide 21 mmol/L (22-29); Chloride 110 mmol/L (98-107); Ferritin 77 ng/mL (15-150); Globulin 2.7 g/dL (1.3-4.6); Glucose 114 mg/dL (65-115); Iron 67 ug/dL (37-145); Osmolality Calculated 296 mOsm/kg (285-295); Potassium 4.1 mmol/L (3.5-5.1); Sodium 143 mmol/L (136-145); Total Iron Binding Capacity 352 mcg/dl; Total Protein 5.7 g/dL (6.6-8.7); Unsaturated Iron Binding 285 ug/dL (112-347)
== END 2025-04-08 23:59 | disposition home or self-care (01) ==
PROVIDERS: Nurse Practitioner; PCP Physician Assistant; Visit Provider Internal Medicine Medical Oncology
DX: D50.9 Iron deficiency anemia, unspecified; D61.818 Other pancytopenia; F17.210 Nicotine dependence, cigarettes, uncomplicated; F17.290 Nicotine dependence, other tobacco product, uncomplicated; D69.6 Thrombocytopenia, unspecified; R03.0 Elevated blood-pressure reading, without diagnosis of hypertension; Z53.9 Procedure and treatment not carried out, unspecified reason
CPT/HCPCS: 36430; 80053; 82728; 83540; 83550; 85025; 86850; 86900; 86920; 99213; P9016